=== PATIENT | male | born 1975 | race Caucasian/White ===

== ENCOUNTER 2024-06-12 14:45 | Outpatient (RCR) | payer MEDICAID, SELFPAY ==
[2024-06-05 09:45] VITALS: BP 100/64; PULSE 87; RESP 20; TEMP 36.1; BMI 30.6
--- NOTE | 2024-06-05 13:05 | HP.PCM_ITS ---
History of Present Illness Date of Service: 06/05/24 Chief Complaint: Right Buttock Ulcer History of Wound: Mr. Millan is a 49-year-old who currently resides in a nursing facility. Referred to the wound center due to nonhealing right buttock ulcer. Believes that this has been present for over 2 months. Had been sitting/laying more due to debility from scrotal/penile concerns, he believes that this developed during this time. Has had some dressing changes at his facility but he cannot clearly state what was used. History of diabetes mellitus which has not been well-controlled. Last A1c was around 13-14 however, he states that his readings have been much better lately. Recent hospital s srinivas for sepsis. ? History of significant phimosis with prepuce surgery. This has been managed by urology. He otherwise feels well. He states that his appetite is good. No chills, fever or diarrhea reported. [facility] Medical History (Updated 06/05/24 @ 13:[address] Huyen Mohan MD) Debility Type 2 diabetes mellitus Decubitus ulcer of right buttock, stage 4 Home Medications ?Medication ?Instructions ?Recorded ?Last Taken ?Type apixaban 5 mg tablet (Eliquis) 5 mg PO BID 06/05/24 Unknown History bumetanide 1 mg tablet 1 mg PO BID 06/05/24 Unknown History gabapentin 300 mg capsule 300 mg PO 06/05/24 Unknown History glimepiride 4 mg tablet 8 mg PO 06/05/24 Unknown History insulin NPH isoph U-100 human 100 unit subcut 06/05/24 Unknown History unit/mL (3 mL) subcutaneous pen (Humulin N NPH U-100 Insulin KwikPen) insulin glargine 100 unit/mL (3 unit subcut 06/05/24 Unknown History mL) subcutaneous pen (Lantus Solostar U-100 Insulin) insulin glargine 100 unit/mL 30 unit subcut QHS 06/05/24 Unknown History subcutaneous solution (Lantus U-100 Insulin) insulin lispro 100 unit/mL subcut 06/05/24 Unknown History subcutaneous pen (Humalog KwikPen (U-100) Insulin) lidocaine 4 % topical patch 1 patch topical Q24H 06/05/24 Unknown History (Lidocore) metoprolol succinate 100 mg 100 mg PO BID 06/05/24 Unknown History tablet,extended release 24 hr omeprazole 40 mg capsule,delayed 40 mg PO BID 06/05/24 Unknown History release ondansetron HCl 4 mg/5 mL oral 4 mg PO Q6H PRN nausea and vomiting 06/05/24 Unknown History solution rosuvastatin 10 mg tablet 10 mg PO DAILY 06/05/24 Unknown History Social History Smoking Status: Current some day smoker ROS Constitutional Constitutional: Denies daytime sleepiness, fatigue, fever(s), frequent falls, lethargy or night sweats Eyes Eyes: Denies blindness, blind spots, change in eye color, change in vision, discharge from eye(s), erythema or excessive blinking ENT HEENT: Denies change in voice, dental pain, dysphagia, ear discharge, epistaxis, facial pain, headache(s) or hearing loss Cardiovascular Cardiovascular: Denies bluish discoloration of hand/feet, claudication, clubbing, cyanosis, diaphoresis, dizziness or dyspnea Respiratory/Chest Respiratory/Chest: Denies chest tightness, dusky skin, excessive phlegm product ion, hemoptysis, hoarseness, inability to speak, mouth breathing or nail bed cyanosis Gastrointestinal Gastrointestinal: Denies change in bowel habits, chewing difficulty, coffee ground emesis, constipation, diarrhea, dry heaves or dysphagia Genitourinary Genitourinary: Denies abdominal discomfort, burning urination, flank pain, itching or low back pain Musculoskeletal Musculoskeletal: Denies deformity, extremity pain, loss of height, muscle spasms, muscle weakness, numbness or tremors Integumentary Integumentary: Denies changing lesions, erythema, furuncle, hirsutism or pruritus Neurologic Neurologic: Denies abnormal speech, behavior changes, burning sensations, confusion, convulsions, loss of vision or memory loss Psychiatric Psychiatric: Denies auditory hallucinations, behavioral changes, change in appetite, difficulty concentrating, hallucinations, irritability or memory loss Endocrine Endocrinology: Denies cold intolerance, deepening of the voice, excessive sweating, heat intolerance, increase in ring/shoe/hat size, palpitations or poly uria Hematologic/Lymphatic Hematologic/Lymphatic: Denies easy bleeding or easy bruising Allergic/Immunologic Allergic/Immunologic: Denies itchy eyes, lip swelling, throat swelling, tongue swelling, hives, eczemia or wheezing Vital Signs Vital Signs Vital Signs: 06/05/24 09:45 Temperature 97 F L Temperature Source Temporal Pulse Rate 87 Respiratory Rate 20 H Blood Pressure 100/64 Blood Pressure Mean 76 Weight Weight: 238 lb 11.202 oz Body Mass Index (BMI) 30.6 Physical Exam Const alert, oriented x3 and no apparent distress General Appearance: cooperative and comfortable HEENT normocephalic, head/scalp atraumatic and hearing grossly normal bilaterally Eyes EOMs intact bilaterally General Eye: normal appearance of both eyes Neck full ROM and supple General: normal visual inspection Resp normal respiratory effort and normal air movement Effort and Inspection: able to speak in complete sentences Cardio regular rate, regular rhythm, S1 normal heart sound and S2 normal heart sound GI soft to palpation and non-tender Skin Wounds: wounds noted bed with slough and necrotic, drainage yellow, margins well defined and malodorous Neuro oriented x3, CN's II-XII intact bilaterally, moves all extremities and no focal motor deficits Psych mental status grossly normal, thought process normal, cooperative and affect normal Debridement Note Debridement Note Wound debrided: Right buttock Wound Grade/Stage: Stage IV Type of Debridement: Excisional debridement Anesthesia Used: 4% Lidocaine Solution Depth: in the subcutaneous layer Percentage of wound debrided: 100 Instrument Used: 7mm curette, #15 blade and Forceps Tissue Removed: Slough, necrotic/devitalized tissue Severity: Fat Layer Exposed Amount of bleeding with debridement: Mild Bleeding Controlled with: Pressure Patient tolerated procedure: Patient tolerated procedure well Post-Debridement Measurements and Additional Note: Post-Debridement Measurements/Treatment WC - Nurse 1 - General Ulcer Assessment Start: 06/05/24 09:45 Freq: Status: Active Protocol: EMMANUEL Activity Type Activity Date Activity User E-sign Co-sign Detail Recorded Client Recorded Date Recorded By Document 06/05/24 09:45 DL [id number] 06/05/24 10:12 DL 06/05/24 09:45 - Today's Visit Information Type of service Initial Visit Arrival Mode Wheelchair Transfer Assistance Manual Transfer Assist (Other) x2 Patient Identification Verified (Name & Yes ) Patient Requires Transmission-Based No Precautions Height and Weight Height 6 ft 2 in Weight 238 lb 11.202 oz Weight in Pounds 238.7 lbs Weight Measurement Method Estimated by Patient Body Mass Index (BMI) 30.6 BMI Classification Obese BSA - Pauline 2.34 Vital Signs Temperature (97.8 F-99.1 F) 97 F L Temperature Source Temporal Pulse Rate (60-100) 87 Pulse Location Monitor Respiratory Rate (12-18) 20 H Blood Pressure (90/60-120/80) 100/64 Blood Pressure Mean 76 History Since Last Visit- (Skip if this is Patient's initial visit) Left Footwear Slipper Right Footwear Slipper Pain Scale: 0-10 Numeric Is Patient Pain Free? Yes Communication Assessment Preferred language Malian Able to Read Yes Able to Write Yes Communication Tools None Right Hearing Abillity Normal Left Hearing Abillity Normal Visual Assistive Devices Glasses Teaching Assessment Preferences Verbal,Written, Demonstration Barriers to Learning None Readiness To Learn Good Willingness to Engage in Self Management Med Activies Readiness to Engage in Self Management Med Activities Anxiety Level Calm Cooperation Cooperative Perception Coherent Interest in Health Problem Asks Questions Education Importance Acknowledges Need Does Patient Smoke tobacco or other Yes substances Smoking Status Current some day smoker Is Patient Diabetic Yes Functional Assessment Recent Decline in Ability to Perform Denies Any Declines Culture/Episcopalian/Medical Office Assistant Cultural/Episcopalian Needs that may affect No Treatment Plan Would you allow our hospital mutual fund manager to No meet you for the purpose of spiritual/ emotional support? Medical Office Assistant to contact place of alevism No WC - Nurse 1 - General Ulcer Measurement Start: 06/05/24 09:45 Freq: Status: Active Protocol: Activity Type Activity Date Activity User E-sign Co-sign Detail Recorded Client Recorded Date Recorded By Document 06/05/24 09:45 DL [id number] 06/05/24 10:12 DL 06/05/24 09:45 Wound Center Nurse 1 #2 Penis/Scrotum -Current Size (cm) - Length 8.4 -Current Size (cm) - Width 5.7 -Current Size (cm) - Depth 2.8 -Total Square Cm 47.88 -Photo Taken Yes -Exudate Amt Medium -Exudate Type Serosanguineous -Wound Margin Distinct, Outline Attached -Granulation Amt Large (67-100%) -Granulation Quality Red -Necrosis Amt Small (1-33%) -Necrotic Tissue Type Adherent Slough -Structure Exposed N/A -Texture (Miranda-wound Skin Appearance) Localized Edema ,Scarring -Moisture (Miranda-wound Skin Appearance) No Abnormality -Color (Miranda-wound Skin Appearance) No Abnormality -Ulcer Cleansing Soap and Water -Foul Odor after Cleansing No -Anesthetic Used 4% Lidocaine Solution #1 R Buttocks -Current Size (cm) - Length 5.4 -Current Size (cm) - Width 6 -Current Size (cm) - Depth 2.5 -Total Square Cm 32.4 -Photo Taken Yes -Exudate Amt Medium -Exudate Type Serosanguineous -Wound Margin Distinct, Outline Attached -Granulation Amt None Present (0 %) -Necrosis Amt Large (67-100%) -Necrotic Tissue Type Adherent Slough -Structure Exposed N/A -Texture (Miranda-wound Skin Appearance) Scarring -Moisture (Miranda-wound Skin Appearance) Dry/Scaly -Color (Miranda-wound Skin Appearance) No Abnormality -Tenderness on Palpation (Miranda-wound No Skin Appearance) -Ulcer Cleansing Soap and Water -Foul Odor after Cleansing No -Anesthetic Used 4% Lidocaine Solution - Nurse 2 - General Ulcer CM Notes Start: 06/05/24 09:45 Freq: Status: Active Protocol: Activity Type Activity Date Activity User E-sign Co-sign Detail Recorded Client Recorded Date Recorded By Document 06/05/24 10:44 [facility] 06/05/24 11:07 06/05/24 10:44 Wound Center Nurse 2 #2 Penis/Scrotum -Time 10:44 -Correct Patient Yes -Correct Side, Site, Position Yes #1 R Buttocks -Time 10:44 -Correct Patient Yes -Correct Side, Site, Position Yes -Correct Procedure Yes -Procedure Performed Yes -Type of Procedure Debridement -Clinical Debridement Subcutaneous -Tissue Removed Subcutaneous -Post Debridement (cm) - Length 5.5 -Post Debridement (cm) - Width 5.5 -Post Debridement (cm) - Depth 8.0 -Total Square (Post) (cm) 30.25 -Tunneling No -Undermining/Tunneling No -Circular Undermining No -Wound/Ulcer Outcome Not Healed -Ulcer Cleansing Rinsed/ Irrigated with Saline -Foul Odor after Cleansing No -Bioengineered Tissue No -Bleeding Controlled with Pressure -Treatment Response Procedure Tolerated Well -Debridement - Subq, 1st 20sq cm Yes -Debridement, SubQ, ea addt'l 20sq cm 1 or part thereof Pain Scale: 0-10 Numeric Is Patient Pain Free? Yes - Nurse 3 - General Ulcer D/C NN Start: 06/05/24 09:45 Freq: Status: Active Protocol: Activity Type Activity Date Activity User E-sign Co-sign Detail Recorded Client Recorded Date Recorded By Document 06/05/24 11:23 KW f 06/05/24 11:25 KW 06/05/24 11:23 Wound Care Center Nurse 3 #2 Penis/Scrotum -Other Dressing wet to dry -Primary Dressing Covered/Secured with Dry Gauze, Secured with Tape #1 R Buttocks -Primary Dressing Applied Mepilex Border -Other Dressing hydrogel until Santyl is recieved topped with moistened gauze -Primary Dressing Covered/Secured with Dry Gauze -Mepilex Border 1 Pain Scale: 0-10 Numeric Is Patient Pain Free? Yes WC - Visit Discharge Discharge Condition Stable Ambulatory Status Wheelchair Medication Reconcilliation completed & No provided to patient/care provider Clinical Summary of Care Provided Yes Charges/Coding Visit Charges Office Visits / Consults: 28719 OV L4 New 45min Procedures Integumentary [id number]: [id number] Janny subq tissue 20 sq cm/< Assessment/Plan Assessment/Plan (1) Decubitus ulcer of right buttock, stage 4: CODE(S): L89.314 - Pressure ulcer of right buttock, stage 4 (2) Type 2 diabetes mellitus: CODE(S): E11.9 - Type 2 diabetes mellitus without complications (3) Debility: CODE(S): R53.81 - Other malaise PLAN: Plan Debridement done as documented above, procedure was well-tolerated. Significant/extensive slough and necrotic tissue. Probes to about 8 cm at the deepest using a metal probe. I believe he will benefit from surgical management/unroofing in the OR. He will like this done at [facility]. Due to significant slough even after extensive debridement, will start out with Santyl. Apply daily cover with moist gauze and ABD. He states that he has an offloading mattress at his facility. Reposition often. An x-ray was ordered due to concern for depth and risk for osteomyelitis. Also history of diabetes mellitus which per history has not been well-controlled. We have requested recent labs and have added on a CRP, ESR, A1c and prealbumin levels. He states that his appetite is good, optimal dietary and protein intake. Reposition often. He was advised to call with any questions or concerns. Follow-up in a week for courtesy visit and in 2 weeks with me.
--- NOTE | 2024-06-06 11:34 | WC ---
PHOTO 06/05/24 RIGHT BUTTOCKS (I)
--- NOTE | 2024-06-06 11:35 | WC ---
PHOTO 06/05/24
[2024-06-12 14:54] VITALS: BP 71/48; PULSE 84; RESP 16; TEMP 35.3; BMI 30.6
== END 2024-06-18 23:59 | disposition home or self-care (01) ==
LOC: WC 14:45
PROVIDERS: Visit Provider Internal Medicine
DX: L89.314 Pressure ulcer of right buttock, stage 4 (principal); Z79.4 Long term (current) use of insulin; E11.9 Type 2 diabetes mellitus without complications; R53.81 Other malaise; F17.200 Nicotine dependence, unspecified, uncomplicated; Z79.01 Long term (current) use of anticoagulants; Z79.84 Long term (current) use of oral hypoglycemic drugs; Z79.899 Other long term (current) drug therapy
CPT/HCPCS: 11042; 11045; 99203; G0463

== ENCOUNTER 2024-06-18 09:01 | Emergency (ER) | payer MEDICAID, SELFPAY ==
[2024-06-18] VITALS (20 sets, daily range): BP systolic 79–151; BP diastolic 55–87; PULSE 83–94; RESP 13–21; TEMP 36.6–36.9; O2SAT 98–100; BMI 31.5
--- NOTE | 2024-06-18 09:18 | CT_ITS ---
STUDY: CT ABDOMEN AND PELVIS WITH CONTRAST REASON FOR EXAM: Male, 49 years old. History of Jean''s gangrene 1 month ago -- Patient has right buttock wound purulent drainage RADIATION DOSAGE (If Supplied By Facility): CTDIvol = ( 17.41 ) mGy, DLP = ( 1733.37 ) mGycm TECHNIQUE: Transaxial images were obtained from the dome of the diaphragm to the symphysis pubis without oral contrast. IV 100mL Isovue-300 was administered. Sagittal and coronal images were reconstructed. Individualized dose optimization techniques were used for this CT. COMPARISON: None. FINDINGS: Minimal increased linear markings at the lung bases suggestive of bibasilar atelectasis. Coronary artery calcification. Normal liver. Tiny gallstones in the dependent portion of the gallbladder lumen. Normal spleen. Normal pancreas. Normal bilateral adrenal glands. There is nonspecific bilateral perinephric stranding. Normal visualized stomach. Normal small intestine. Normal colon. The appendix is visualized and appears normal. There is scattered atherosclerotic calcification of the abdominal aorta, without a demonstrated aneurysm. Normal inferior vena cava. Normal retroperitoneum. A Young catheter is seen within a decompressed urinary bladder. There is a 11 cm x 2.8 cm x 1.7 cm heterogeneous fluid collection with air overlying the right gluteus musculature. There is opening to the overlying skin along the medial aspect of the perineum. Increased markings with air also seen in the inferior aspect of the perineum. There is also evidence of a 2.8 cm x 1.5 cm x 2.9 cm heterogeneous fluid collection in the left side of the perineum just, inferior to the scrotum. No bony destruction is seen. CT/Abdomen/Pelvis W IV Cont ONLY IMPRESSION: 11 cm x 2.8 cm x 1.7 cm heterogeneous fluid collection with air overlying the right gluteus musculature extending into the medial aspect of the perineum. This extends into the inferior aspect of the perineum. There is also evidence of a 2.8 cm x 1.5 cm x 2.9 cm heterogeneous fluid collection in the left side of the perineum just below the scrotum. Tiny gallstones along the dependent portion gallbladder lumen. Nonspecific bilateral perinephric stranding. Mild bibasilar atelectasis. Electronically Signed: Rancho Mcconnell MD at 10:59 EDT ,
--- NOTE | 2024-06-18 09:21 | EKG12_ITS ---
Test Reason : WOUND Blood Pressure : / mmHG Vent. Rate : 092 BPM Atrial Rate : 092 BPM P-R Int : 160 ms QRS Dur : 168 ms QT Int : 410 ms P-R-T Axes : 042 041 012 degrees QTc Int : 507 ms Normal sinus rhythm Non-specific intra-ventricular conduction block Abnormal ECG Confirmed by SLIM SOLIS, BARBARA ([id number]), news copy editor HOMAR GRIJALVA ([id number]) on 06/20/2024 10:22:34 AM Referred By: Confirmed By:CRISTIN SMALLS MD
[2024-06-18] MEDS: 0.9% Normal Saline (1000mL) 1,000 ML 999 ML IV ×3 (09:25→11:38)
--- NOTE | 2024-06-18 09:25 | EDS_ITS ---
HPI History of Present Illness Chief Complaint: Wound Check Narrative Narrative: Patient is a 49-year-old male with a past medical history of type 2 diabetes, right stage IV decubitus ulcer, Jean's gangrene debrided about a month ago at [facility] who presented to the emergency department with a chief complaint of wound check. According to the patient he was sent here by the physician at the nursing facility [facility] for further evaluation management. Patient notes that he believes he is on 3 antibiotics currently but cannot recall the exact name of these. According to EMS they also noted that his hemoglobin checked recently was noted to be low around 6 as well. Patient himself denies any complaints states that he does not feel ill overall. [facility] Medical History Anemia, unspecified Acute kidney failure, unspecified Obstructive and reflux uropathy, unspecified Polyneuropathy, unspecified Jean gangrene Debility Type 2 diabetes mellitus Decubitus ulcer of right buttock, stage 4 Home Medications ?Medication ?Instructions ?Recorded ?Last Taken ?Type apixaban 5 mg tablet (Eliquis) 5 mg PO BID 06/05/24 Unknown History bumetanide 1 mg tablet 1 mg PO BID 06/05/24 Unknown History gabapentin 300 mg capsule 300 mg PO DAILY 06/05/24 Unknown History glimepiride 4 mg tablet 8 mg PO DAILY 06/05/24 Unknown History insulin glargine 100 unit/mL (3 30 unit subcut QHS 06/05/24 Unknown History mL) subcutaneous pen (Lantus Solostar U-100 Insulin) insulin lispro 100 unit/mL 1 sliding scale dose subcut TID DM 06/05/24 Unknown History subcutaneous pen (Humalog KwikPen (U-100) Insulin) lidocaine 4 % topical patch 1 patch topical Q24H 06/05/24 Unknown History (Lidocore) metoprolol succinate 100 mg 100 mg PO BID 06/05/24 Unknown History tablet,extended release 24 hr omeprazole 40 mg capsule,delayed 40 mg PO BID 06/05/24 Unknown History release rosuvastatin 10 mg tablet 10 mg PO DAILY 06/05/24 Unknown History acetaminophen 325 mg tablet 650 mg PO Q8H PRN pain 06/18/24 Unknown History cholecalciferol (vitamin D3) 1,250 1,250 mcg PO QWEEK 06/18/24 Unknown History mcg (50,000 unit) capsule ferrous sulfate 325 mg (65 mg 325 mg PO DAILY 06/18/24 Unknown History iron) tablet (FeroSul) meclizine 25 mg tablet (Dramamine 25 mg PO Q8H PRN dizziness 06/18/24 Unknown History Less Drowsy) ondansetron HCl 4 mg tablet 4 mg PO Q6H PRN nausea and vomiting 06/18/24 Unknown History oxycodone 5 mg tablet 5 mg PO Q6H PRN pain 06/18/24 Unknown History scopolamine base 1 mg over 3 days 1 patch topical Q3D 06/18/24 Unknown History transdermal patch simethicone 180 mg capsule 180 mg PO BID 06/18/24 Unknown History (Anti-Gas Ultra Strength) sodium hypochlorite 0.25 % 1 applic topical BID 06/18/24 Unknown History solution (Dakin's Solution) Allergy/AdvReac Type Severity Reaction Status Date / Time ampicillin Allergy Unknown PT UNABLE Verified 06/18/24 09:09 TO RESPOND-NEEDS F/U Penicillins Allergy Unknown PT UNABLE Verified 06/18/24 09:09 TO RESPOND-NEEDS F/U Social History Smoking Status: Current some day smoker tobacco type: cigarettes ROS ROS ED ROS Narrative Constitutional: Denies fevers, chills, headaches, lightheadedness, dizziness Eyes: Denies change in vision double vision blurry vision Cardiovascular: Denies chest pain or palpitations Respiratory: Denies coughing wheezing shortness of breath Abdomen: Denies abdominal pain nausea vomiting diarrhea : Denies any urinary symptoms states that he had surgery about a month ago for Jean's gangrene as noted in HPI Neurological: Denies numbness or tingling Musculoskeletal: Patient complains of buttock wound and needs evaluated Skin: Complains of buttock wound EXAM Physical Exam Narrative Exam Narrative: General: Patient lying in bed rest comfortably did not appear to be in acute distress Head: Atraumatic, normocephalic Eyes: PERRL bilaterally, EOMI bilaterally, no conjunctival injection noted Neck: Soft, supple, trachea midline Cardiovascular: Regular rate and rhythm no murmurs gallops rubs noted Respiratory: Clear to auscultation bilaterally Abdomen: Soft, nondistended, no tenderness palpation Musculoskeletal: Patient has a right buttock wound that has significant amount of purulent drainage coming from this as well as infected tissue does appear to tunnel as well Genitourinary: Patient has Young catheter in place surgical sites appear to be healing well no surrounding erythema or purulent drainage noted Extremities: DP pulses +2/4 in the bilateral lower extremities, no pedal edema on exam Neurological: Patient following commands in his [facility] year is 2023 Skin: See musculoskeletal Const Vital Signs: 06/18/24 09:03 06/18/24 09:06 06/18/24 09:23 Temperature 98.2 F 98.2 F Temperature Source Oral Oral Pulse Rate 94 94 Respiratory Rate 15 15 Respiratory Effort Normal Non-Labored Respiratory Pattern Normal Blood Pressure 79/55 L 79/55 L Blood Pressure Mean 63 63 Blood Pressure Source Blood Pressure Position Blood Pressure Location Pulse Ox 100 100 Oxygen Delivery Method Room Air Room Air 06/18/24 09:26 06/18/24 10:03 06/18/24 11:00 Temperature Temperature Source Pulse Rate 94 92 Respiratory Rate 21 H 19 H Respiratory Effort Respiratory Pattern Blood Pressure 89/63 L 113/73 Blood Pressure Mean 71 86 Blood Pressure Source Blood Pressure Position Blood Pressure Location Pulse Ox 100 100 Oxygen Delivery Method Room Air Room Air Room Air 06/18/24 11:44 06/18/24 12:15 Temperature 97.8 F Temperature Source Oral Pulse Rate 90 90 Respiratory Rate 16 14 Respiratory Effort Respiratory Pattern Blood Pressure 101/63 114/73 Blood Pressure Mean 75 86 Blood Pressure Source Monitor Blood Pressure Position Semi-Fowlers Blood Pressure Location Left Arm Pulse Ox 98 100 Oxygen Delivery Method Room Air Room Air MDM MDM MDM Narrative Medical decision making narrative: Patient is a 49-year-old male who presents to the emergency department with chief complaint of wound check. Patient will have a workup performed here on the differential diagnose includes but not limited to infected right buttock wound, pneumonia, UTI. Patient be given 30 cc/kg bolus of IV fluids based on ideal body weight as BMI is greater than 30. Once workup is obtained reviewed he will be reevaluated. Wound cultures were obtained. Patient's cultures were negative. Patient CBC was significant for leukocytosis of 12,000, hemoglobin was noted to be low at 6.1 he will be typed and screened for 2 units of blood, platelet count was 488. Patient's INR normal 1.6, PT elevated 18.8. Patient's sodium was notably 134, potassium normal at 4.4, creatinine was elevated 3.40 does have underlying chronic kidney disease per records at [facility] and follows with nephrology 9, AST and ALT were 153 and 66 respectively. Patient's urinalysis did not reveal any evidence of infection. Patient's lactic acid was notably 2. It was negative for nitrates, 500 leukocyte esterase seen with greater than 100 white blood cells seen however no bacteria seen he does have chronic Young catheter in place. Patient's chest x-ray was reviewed and showed elevation of right hemidiaphragm with increased markings at the right lung base suggestive of right basilar atelectasis. Patient's CT abdomen pelvis with IV contrast showed a 11 x 3 x 2 heterogeneous fluid collection with air overlying the right gluteus musculature. There is opening to the overlying skin along the medial aspect of the perineum. Increased markings with air also seen in the inferior aspect of the perineum. Also there is evidence of a 3 x 2 x 3 heterogeneous fluid collection in the left side of the perineum just inferior to the scrotum. No bony destruction was noted. Patient was given IV vancomycin, Zosyn and clindamycin here in the emergency department. At this point in time do believe the patient warrants transfer back to [facility]. I did discuss the case with industrial sales engineer Dr. Warner who states that given the patient's vital signs have normalized after IV fluids and will be getting blood transfusion he once again has underlying chronic kidney disease per the records he does believe that the patient can be admitted to the surgical intensive care unit under the hospitalist. I did discuss the case with hospitalist Dr. Ritter who will accept patient for admission. He is requesting normal saline running at 100 cc an hour which was ordered. Patient was notified that he will be transferred to [facility] in [facility] he is agreeable with this plan all question concerns were answered bedside. Lab Data Labs: Laboratory Results - last 24 hr 06/18/24 06/18/24 06/18/24 09:20 09:40 10:50 WBC 12.2 H RBC 2.47 L Hgb 6.1 L Hct 20.2 L MCV 81.8 MCH 24.7 L MCHC 30.2 L RDW Std Deviation 51.2 H RDW Coeff of Adolfo 17.2 H Plt Count 488 H MPV 9.6 Immature Gran % (Auto) 1.200 H Neut % (Auto) 63.0 Lymph % (Auto) 23.1 [place] % (Auto) 9.4 Eos % (Auto) 2.9 Baso % (Auto) 0.4 Absolute Neuts (auto) 7.7 Absolute Lymphs (auto) 2.82 Nucleated RBC % 0 PT 18.8 H INR 1.6 APTT 35.6 Sodium 134 L Potassium 4.4 Chloride 100 Carbon Dioxide 27.0 Anion Gap 7 BUN 62 H Creatinine 3.40 H Estim Creat Clear Calc 35.68 Est GFR (MDRD) Af Amer 25 L Est GFR (MDRD) Non-Af 21 L BUN/Creatinine Ratio 18.2 Glucose 85 Lactic Acid 2.0 Calcium 8.7 Total Bilirubin 0.50 AST 153 H ALT 66 H Alkaline Phosphatase 1954 H Troponin I High Sens 12 Total Protein 8.1 Albumin 1.4 L Globulin 6.7 H Albumin/Globulin Ratio 0.2 L Urine Color Yellow Urine Clarity Cloudy Urine pH 6.0 Ur Specific Lennon 1.010 Urine Protein 100 H Urine Glucose (UA) Normal Urine Ketones Negative Urine Occult Blood 150 H Urine Nitrite Negative Urine Bilirubin Negative Urine Urobilinogen Normal Ur Leukocyte Esterase 500 H Urine RBC 0 SEEN Urine WBC >100 SEEN Ur Squamous Epith Cells 0 SEEN Urine Bacteria 0 SEEN Urine Mucus 0 SEEN Urine Yeast 2+ Blood Type O POSITIVE Antibody Screen NEGATIVE Crossmatch See Detail Radiography Diagnostic Testing: Clinical Impression(s) from Imaging Studies Abdomen/Pelvis CT 06/18/24 09:18 IMPRESSION: 11 cm x 2.8 cm x 1.7 cm heterogeneous fluid collection with air overlying the right gluteus musculature extending into the medial aspect of the perineum. This extends into the inferior aspect of the perineum. There is also evidence of a 2.8 cm x 1.5 cm x 2.9 cm heterogeneous fluid collection in the left side of the perineum just below the scrotum. Tiny gallstones along the dependent portion gallbladder lumen. Nonspecific bilateral perinephric stranding. Mild bibasilar atelectasis. Electronically Signed: Rancho Mcconnell MD at 10:59 EDT , Chest X-Ray 06/18/24 10:38 IMPRESSION: Elevation of the right hemidiaphragm with increased markings at the right lung base suggestive of a right basilar atelectasis. Electronically Signed: Rancho Mcconnell MD at 11:06 EDT , Discharge Plan Triage Chief Complaint: Wound Check Other Complaint: Abn Labs ED Provider: Harry Akers Dx/Rx/DC Orders Clinical Impression: Abscess of sacrum, Type 2 diabetes mellitus, History of Jean's gangrene, Open wound of buttock Prescriptions: No Action Dakin's Solution 0.25 % solution 1 applic topical BID Rx Instructions: APPLY TO SCROTUM ferrous sulfate [FeroSul] 325 mg (65 mg iron) tablet 325 mg PO DAILY meclizine [Dramamine Less Drowsy] 25 mg tablet 25 mg PO Q8H PRN (Reason: dizziness) oxycodone 5 mg tablet 5 mg PO Q6H PRN (Reason: pain) scopolamine base 1 mg over 3 days patch 3 day 1 patch topical Q3D simethicone [Anti-Gas Ultra Strength] 180 mg capsule 180 mg PO BID Rx Instructions: GIVE 1 CAPSULE TWICE DAILY FOR 10 DAYS STARTING 06/17/24 FOR HYPERTENSION. acetaminophen 325 mg tablet 650 mg PO Q8H PRN (Reason: pain) cholecalciferol (vitamin D3) 1,250 mcg (50,000 unit) capsule 1,250 mcg PO QWEEK Rx Instructions: UNKNOWN WHAT DAY OF WEEK ondansetron HCl 4 mg tablet 4 mg PO Q6H PRN (Reason: nausea and vomiting) metoprolol succinate 100 mg tablet extended release 24 hr 100 mg PO BID omeprazole 40 mg capsule,delayed release(DR/EC) 40 mg PO BID glimepiride 4 mg tablet 8 mg PO DAILY gabapentin 300 mg capsule 300 mg PO DAILY bumetanide 1 mg tablet 1 mg PO BID insulin lispro [Humalog KwikPen Insulin] 100 unit/mL insulin pen 1 sliding scale dose subcut TID Protocol: 6. Sliding Scale Insulin Custom Condition: mg/dl range Dose/Route: Number of Units Condition: 151-200 Dose/Route: 2 Condition: 201-250 Dose/Route: 4 Condition: 251-300 Dose/Route: 6 Condition: 301-350 Dose/Route: 8 Condition: 351-400 Dose/Route: 10 Condition: 401+ Dose/Route: CONTACT MD Protocol Text: Custom Sliding Scale rosuvastatin 10 mg tablet 10 mg PO DAILY insulin glargine [Lantus Solostar U-100 Insulin] 100 unit/mL (3 mL) insulin pen 30 unit subcut QHS Eliquis 5 mg tablet 5 mg PO BID lidocaine [Lidocore] 4 % adhesive patch,medicated 1 patch topical Q24H Rx Instructions: may leave on for up to 12 hrs Primary Care Provider: Russ Galan Referrals: Russ Galan DO [Primary Care Provider] - Print Language: Haitian Disposition Disposition: DC/Tx to Another Type of HCF
--- NOTE | 2024-06-18 09:26 | NURSING ---
NO OLD EKGS
[2024-06-18 09:48] LABS: Absolute Lymphocyte Count 2.82 X10^3/uL (0.83-4.51); Absolute Neutrophil Count 7.7 X10^3/uL (2.0-7.7); Basophil# 0.05 X10^3/uL; Basophil% 0.4 % (0-1); Eosinophil# 0.35 X10^3/uL; Eosinophils% 2.9 % (0-5); Hematocrit 20.2 % (40-54); Hemoglobin 6.1 g/dL (13.0-16.5); Lymphocyte # 2.82 X10^3/ul (0.83-4.51); Lymphocyte % 23.1 % (19-41); Mean Corp Hgb Conc 30.2 g/dL (32-36); Mean Corpuscular Hgb 24.7 pg (27.0-32.0); Mean Corpuscular Volume 81.8 fL (80-94); Mean Platelet Vol. 9.6 fl (6.2-12.0); Monocyte# 1.15 X10^3/uL; Monocyte% 9.4 % (0-10); NRBC Flagged by Analyzer 0 % (0-5); Platelet Count 488 K/mm3 (150-450); RBC Distribution Width CV 17.2 % (11.6-14.6); RBC Distribution Width SD 51.2 fl (35.1-43.9); Red Blood Count 2.47 M/mm3 (4.6-6.2); White Blood Count 12.2 K/mm3 (4.4-11.0)
[2024-06-18 09:57] LABS: Partial Thromboplast Time 35.6 Seconds (24.1-36.2)
[2024-06-18 10:09] LABS: ALB/GLOB Ratio 0.2 RATIO (0.9-2.4); AST(SGOT) 153 U/L (15-37); Alanine Aminotransfer ALT/SGPT 66 U/L (16-61); Albumin, Serum 1.4 g/dL (3.2-5.0); Alkaline Phosphatase 1954 U/L (45-117); Anion Gap 7 (5-15); BUN 62 mg/dL (7-18); BUN/Creat Ratio 18.2 RATIO (10-20); Calcium,Total 8.7 mg/dL (8.5-10.1); Chloride 100 mmol/L (98-107); EST Glomerular Filtration Rate 21 mL/min (>60); Est Glom Filt Rate - Afr Amer 25 mL/min (>60); Estimated Creatinine Clearance 35.68 ml/min; Globulin 6.7 g/dL (2.2-4.2); Glucose 85 mg/dL (74-106); Potassium 4.4 mmol/L (3.5-5.1); Protein, Total 8.1 g/dL (6.4-8.2); Sodium Level 134 mmol/L (136-145); Troponin-I HS 12 pg/mL (3.0-78.0)
[2024-06-18 10:35] LABS: International Normalized Ratio 1.6; Prothrombin Time (Protime)PT. 18.8 SECONDS (11.7-14.9)
--- NOTE | 2024-06-18 10:38 | RAD_ITS ---
STUDY: X-RAY CHEST REASON FOR EXAM: Male, 49 years old. SIRS criteria TECHNIQUE: AP and lateral views of the chest. COMPARISON: None. FINDINGS: EKG electrodes are seen. Mild degree of increased markings at the right lung base with elevation of the right hemidiaphragm suggestive of right basilar atelectasis. There is no demonstrated pleural abnormality. Normal size heart. Normal mediastinum and raghavendra. Normal visualized pulmonary arteries. Normal visualized aortic arch and descending thoracic aorta. Normal visualized thoracic spine. Normal visualized ribs, clavicles, and shoulders. There is no demonstrated abnormality of the visualized soft tissue structures of the upper abdomen. RAD/Chest PA and Lateral IMPRESSION: Elevation of the right hemidiaphragm with increased markings at the right lung base suggestive of a right basilar atelectasis. Electronically Signed: Rancho Mcconnell MD at 11:06 EDT ,
[2024-06-18 10:55] LABS: Bacteria 0 SEEN /hpf (None Seen); Mucous, Urine 0 SEEN /hpf (<or=2+); Red Blood Cells-Urine 0 SEEN /hpf (0-5); Squamous Epithelial Cells - UA 0 SEEN /hpf (0-5)
[2024-06-18 10:57] LABS: Color, Urine Yellow (Yellow); Glucose, Dipstick Normal (Normal); Ketone-Dipstick Negative (Negative); Leukocyte Esterase-Dipstick 500 /ul (Negative); Nitrite-Dipstick Negative (Negative); Occult Blood-Urine 150 /ul (Negative); Protein-Dipstick 100 mg/dl (Negative); Urine Bilirubin Dipstick Negative (Negative); Urine Clarity Cloudy (Clear); Urine Urobilinogen Normal (Normal)
[2024-06-18] MEDS: Piperacil/Tazobactam 4.5 GM in 0.9% Normal Saline (100mL MB+) 100 ML IV (10:59)
[2024-06-18 11:02] LABS: White Blood Cells >100 SEEN /hpf (0-5)
[2024-06-18 11:03] LABS: Yeast-Urine 2+ /hpf (None Seen)
--- NOTE | 2024-06-18 11:29 | NURSING ---
CALLED [facility] FOR TRANSFER. TALKED TO MANDY
[2024-06-18] MEDS: Clindamycin 900 MG/50 ML BAG 75 MG IV (11:39)
[2024-06-18] MEDS: Vancomycin HCl 2,000 MG in 0.9% Normal Saline (500mL Bag) 500 ML 250 MG IV (12:18)
[2024-06-18] MEDS: 0.9% Normal Saline (1000mL) 1,000 ML 100 ML IV (12:22)
[2024-06-18 13:49] LABS: Reflex Lactate? Y
== END 2024-06-18 14:30 | disposition other institution (70) ==
PROVIDERS: Emergency Provider Emergency Medicine; Visit Provider Emergency Medicine
DX: L02.212 Cutaneous abscess of back [any part, except buttock and flank] (principal); L89.154 Pressure ulcer of sacral region, stage 4; E11.42 Type 2 diabetes mellitus with diabetic polyneuropathy; Z79.4 Long term (current) use of insulin; F17.210 Nicotine dependence, cigarettes, uncomplicated; Z79.899 Other long term (current) drug therapy; Z79.84 Long term (current) use of oral hypoglycemic drugs
CPT/HCPCS: 71046; 74177; 80053; 81001; 83605; 84484; 85025; 85610; 85730; 86850; 86900; 86901; 86920; 86922; 87040; 87070; 87075; 87077; 87086; 87088; 87186; 87205; 93005; 96361; 96365; 96368; 96375; 99285; J7030; J7040; J7050; P9016; Q9967; A4216

== ENCOUNTER 2024-07-14 14:28 | Outpatient (RCR) | payer MEDICAID, SELFPAY ==
[2024-06-19 00:53] VITALS: BP 71/48; PULSE 84; RESP 16; TEMP 35.3; BMI 30.6
[2024-07-14 14:32] VITALS: BP 101/64; PULSE 90; RESP 16; TEMP 36; BMI 30.6
--- NOTE | 2024-07-14 17:52 | PCM.WC.HP ---
History of Present Illness Date of Service: 07/14/24 Chief Complaint: Right Buttock Ulcer History of Wound: Sreekanth Millan is a 49-year-old type II diabetic (often high A1c, sometimes between 13 and 14), as well as atrial fibrillation on 5 mg of Eliquis twice daily, who presents today as a transport from a skilled nursing where he is being cared for because of a nonhealing right buttock ulcer. 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 His scrotal wound/penile wound have improved greatly and with wet to dry dressings, but he reports that his pressure sore from being immobilized from critical illness is persistent. They have been doing a wound VAC on this pressure sore and he thinks that stool is getting in and around the wound VAC unfortunately. He still has a catheter in and is not sure when the urologist is planning to take it out. He continues to smoke cigarettes (reportedly smokes 5 cigarettes/day at the skilled nursing). He reports that he does not walk much and only works with physical therapy a little bit, standing up with them to get in a walker to ambulate. [facility] Medical History Anemia, unspecified Acute kidney failure, unspecified Obstructive and reflux uropathy, unspecified Polyneuropathy, unspecified Jean gangrene Debility Type 2 diabetes mellitus Decubitus ulcer of right buttock, stage 4 Home Medications ?Medication ?Instructions ?Recorded ?Last Taken ?Type apixaban 5 mg tablet (Eliquis) 5 mg PO BID 06/05/24 Unknown History bumetanide 1 mg tablet 1 mg PO BID 06/05/24 Unknown History gabapentin 300 mg capsule 300 mg PO DAILY 06/05/24 Unknown History glimepiride 4 mg tablet 8 mg PO DAILY 06/05/24 Unknown History insulin glargine 100 unit/mL (3 30 unit subcut QHS 06/05/24 Unknown History mL) subcutaneous pen (Lantus Solostar U-100 Insulin) insulin lispro 100 unit/mL 1 sliding scale dose subcut TID DM 06/05/24 Unknown History subcutaneous pen (Humalog KwikPen (U-100) Insulin) lidocaine 4 % topical patch 1 patch topical Q24H 06/05/24 Unknown History (Lidocore) metoprolol succinate 100 mg 100 mg PO BID 06/05/24 Unknown History tablet,extended release 24 hr omeprazole 40 mg capsule,delayed 40 mg PO BID 06/05/24 Unknown History release rosuvastatin 10 mg tablet 10 mg PO DAILY 06/05/24 Unknown History acetaminophen 325 mg tablet 650 mg PO Q8H PRN pain 06/18/24 Unknown History cholecalciferol (vitamin D3) 1,250 1,250 mcg PO QWEEK 06/18/24 Unknown History mcg (50,000 unit) capsule ferrous sulfate 325 mg (65 mg 325 mg PO DAILY 06/18/24 Unknown History iron) tablet (FeroSul) meclizine 25 mg tablet (Dramamine 25 mg PO Q8H PRN dizziness 06/18/24 Unknown History Less Drowsy) ondansetron HCl 4 mg tablet 4 mg PO Q6H PRN nausea and vomiting 06/18/24 Unknown History oxycodone 5 mg tablet 5 mg PO Q6H PRN pain 06/18/24 Unknown History scopolamine base 1 mg over 3 days 1 patch topical Q3D 06/18/24 Unknown History transdermal patch simethicone 180 mg capsule 180 mg PO BID 06/18/24 Unknown History (Anti-Gas Ultra Strength) sodium hypochlorite 0.25 % 1 applic topical BID 06/18/24 Unknown History solution (Dakin's Solution) Allergy/AdvReac Type Severity Reaction Status Date / Time ampicillin Allergy Unknown PT UNABLE Verified 06/18/24 09:09 TO RESPOND-NEEDS F/U Penicillins Allergy Unknown PT UNABLE Verified 06/18/24 09:09 TO RESPOND-NEEDS F/U Social History Smoking Status: Current some day smoker tobacco type: cigarettes Vital Signs Vital Signs Vital Signs: 07/14/24 14:32 Temperature 96.8 F L Temperature Source Temporal Pulse Rate 90 Respiratory Rate 16 Blood Pressure 101/64 Blood Pressure Mean 76 Blood Pressure Source Monitor Blood Pressure Position Sitting Blood Pressure Location Right Arm Oxygen Delivery Method Room Air Weight Weight: 238 lb 11.202 oz Body Mass Index (BMI) 30.6 Physical Exam Narrative Right ischial wound with exposed muscle at the base, 3 x 2 cm. There is some fibrinous exudate and necrotic tissue at the base of the wound. This was excised (please see separate debridement portion of note) The wound tunnel superiorly extensively, and it is unlikely that the wound VAC was getting into this location. No fluid collections or signs of surrounding cellulitis Extremity Extremity Narrative: Patient is able to move his extremities He is able to bend and extend his feet and his legs at the knee joints. He is just chronically deconditioned from not walking Debridement Note Debridement Note Laterality: Right Type of Debridement: Excisional debridement Anesthesia Used: 4% Lidocaine Solution Depth: to muscle Percentage of wound debrided: 100 Instrument Used: 5mm curette and 7mm curette Severity: Necrosis of Muscle Bleeding Controlled with: Pressure Patient tolerated procedure: Patient tolerated procedure well Post-Debridement Measurements and Additional Note: Post-Debridement Measurements/Treatment - Nurse 1 - General Ulcer Assessment Start: 07/14/24 14:31 Freq: Status: Active Protocol: EMMANUEL Activity Type Activity Date Activity User E-sign Co-sign Detail Recorded Client Recorded Date Recorded By Document 07/14/24 14:32 [facility] [id number] 07/14/24 14:36 [facility] 07/14/24 14:32 - Today's Visit Information Type of service Follow-up Visit (Physician/COMMUNITY LIAISON OFFICER ) Arrival Mode Wheelchair Transfer Assistance Trip Lift Patient Identification Verified (Name & Yes ) Patient Requires Transmission-Based No Precautions Height and Weight Body Mass Index (BMI) 30.6 BMI Classification Obese Vital Signs Temperature (97.8 F-99.1 F) 96.8 F L Temperature Source Temporal Pulse Rate (60-100) 90 Pulse Location Monitor Respiratory Rate (12-18) 16 Respiratory rate source Observation Oxygen Delivery Method Room Air Blood Pressure (90/60-120/80) 101/64 Blood Pressure Mean 76 Source Monitor Position Sitting Blood Pressure Location Right Arm History Since Last Visit- (Skip if this is Patient's initial visit) Have you changed medications since your No last visit? Any new allergies or adverse reactions No Had a fall/change in ADL's that may No increase risk of falls Signs or symptoms of abuse and/or No neglect since last visit Have you been in the hospital since your Yes last visit? Has dressing in place as prescribed Yes Has compression in place as prescribed N/A Has offloadiing in place as prescribed Yes Experienced any changes in pain level or No management Other Footwear BAREFOOT Pain Scale: 0-10 Numeric Is Patient Pain Free? Yes WC - Nurse 1 - General Ulcer Measurement Start: 07/14/24 14:31 Freq: Status: Active Protocol: Activity Type Activity Date Activity User E-sign Co-sign Detail Recorded Client Recorded Date Recorded By Document 07/14/24 14:32 [facility] [id number] 07/14/24 14:36 [facility] 07/14/24 14:32 Wound Center Nurse 1 #2 Penis/Scrotum -Combined with other wound No -Current Size (cm) - Length 4.6 -Current Size (cm) - Width 0.1 -Current Size (cm) - Depth 0.1 -Total Square Cm 0.46 -Date of Last Picture (Recall this 07/14/24 field) -Photo Taken Yes -Epithelialization Small 1-33% -Tunneling No -Undermining/Tunneling No -Circular Undermining No -Exudate Amt Small -Exudate Type Serosanguineous -Wound Margin Distinct, Outline Attached -Granulation Amt Medium (34-66%) -Granulation Quality Pale,Red -Slough/Fibrin Yes -Necrosis Amt Medium (34-66%) -Necrotic Tissue Type Adherent Slough -Texture (Miranda-wound Skin Appearance) Assessed, Scarring -Moisture (Miranda-wound Skin Appearance) Assessed -Color (Miranda-wound Skin Appearance) Assessed -Temperature (Miranda-wound Skin No Abnormality Appearance) (Pt Warm) -Tenderness on Palpation (Miranda-wound No Skin Appearance) -Ulcer Cleansing Soap and Water -Foul Odor after Cleansing No -Anesthetic Used 4% Lidocaine Solution #1 R Buttocks -Combined with other wound No -Current Size (cm) - Length 3 -Current Size (cm) - Width 2 -Current Size (cm) - Depth 2 -Total Square Cm 6 -Date of Last Picture (Recall this 07/14/24 field) -Photo Taken Yes -Epithelialization None Present -Tunneling Yes -Tunneling Position (O'clock) 7 -Tunneling Distance (cm) 5.5 -Undermining/Tunneling No -Circular Undermining No -Exudate Amt Medium -Exudate Type Serosanguineous -Wound Margin Distinct, Outline Attached -Granulation Amt Large (67-100%) -Granulation Quality Red -Slough/Fibrin Yes -Necrosis Amt Small (1-33%) -Necrotic Tissue Type Adherent Slough -Texture (Miranda-wound Skin Appearance) Assessed -Moisture (Miranda-wound Skin Appearance) Assessed -Color (Miranda-wound Skin Appearance) Assessed -Temperature (Miranda-wound Skin No Abnormality Appearance) (Pt Warm) -Tenderness on Palpation (Miranda-wound No Skin Appearance) -Ulcer Cleansing Soap and Water -Foul Odor after Cleansing No -Anesthetic Used 4% Lidocaine Solution - Nurse 2 - General Ulcer CM Notes Start: 07/14/24 14:31 Freq: Status: Active Protocol: Activity Type Activity Date Activity User E-sign Co-sign Detail Recorded Client Recorded Date Recorded By Document 07/14/24 15:01 [email or web address] [id number] 07/14/24 15:08 07/14/24 15:01 Wound Center Nurse 2 #2 Penis/Scrotum -Correct Patient No -Correct Side, Site, Position No -Correct Procedure No -Procedure Performed No -Wound/Ulcer Outcome Not Healed #1 R Buttocks -Time 15:04 -Correct Patient Yes -Correct Side, Site, Position Yes -Correct Procedure Yes -Procedure Performed Yes -Type of Procedure Debridement -Clinical Debridement Muscle / Fascia -Tissue Removed Muscle,Fascia -Post Debridement (cm) - Length 4.0 -Post Debridement (cm) - Width 3.0 -Post Debridement (cm) - Depth 5.0 -Total Square (Post) (cm) 12.00 -Area of Debridement (cm) - Length 4.0 -Area of Debridement (cm) - Width 3.0 -Total Square (Area) (cm) 12.00 -Tunneling Yes -Tunneling Position (O'clock) 12 -Tunneling Distance (cm) 4 -Tunneling Position #2 (O'clock) 3 -Tunneling Distance #2 (cm) 4 -Undermining/Tunneling Yes -Undermining/Tunneling Starts (O'clock 9 ) -Maximum Distance (cm) 2 -Circular Undermining No -Wound/Ulcer Outcome Not Healed -Ulcer Cleansing Rinsed/ Irrigated with Saline -Foul Odor after Cleansing No -Bioengineered Tissue No -Bleeding Controlled with Pressure -Treatment Response Procedure Tolerated Well -Offloading No -Debridement - Muscle / Fascia, 1st Yes 20sq cm Pain Scale: 0-10 Numeric Is Patient Pain Free? Yes - Nurse 3 - General Ulcer D/C NN Start: 07/14/24 14:31 Freq: Status: Active Protocol: Activity Type Activity Date Activity User E-sign Co-sign Detail Recorded Client Recorded Date Recorded By Document 07/14/24 15:28 [facility] [id number] 07/14/24 15:29 [facility] 07/14/24 15:28 Wound Care Center Nurse 3 #2 Penis/Scrotum -Primary Dressing Covered/Secured with Dry Gauze #1 R Buttocks -Ulcer Cleansing Rinsed/ Irrigated with Saline -Foul Odor after Cleansing No -Other Dressing dakins moist gauze -Primary Dressing Covered/Secured with Secured with Tape -Other Covering abd Treatment Response Procedure Tolerated Well Pain Scale: 0-10 Numeric Is Patient Pain Free? Yes WC - Visit Discharge Discharge Condition Stable Ambulatory Status Wheelchair Transportation ecf Facility Type [facility] Facility Charges/Coding Visit Charges Office Visits / Consults: 30865 OV L4 New 45min (25 modifier ) Procedures Integumentary 111xxx-113xx: 30552 Janny musc/fascia 20 sq cm/< Assessment/Plan Assessment/Plan (1) Decubitus ulcer of right buttock, stage 4: CODE(S): L89.314 - Pressure ulcer of right buttock, stage 4 PLAN: I am concerned that the wound VAC was not getting into the deeper and more tunneled portions of the wound. Today these areas had significant exudate and biofilm. I am changing him to Dakin's wet-to-dry dressings twice daily to clean the wound and decrease biofilm/necrotic tissue. F/u in 2 weeks to check the progress of the wound. I talked to him extensively about pressure offloading (he does have an air bed at the [facility]), as well as working with physical therapy on ambulating (must start walking and getting stronger as this will improve ability to pressure offload the wound). (2) Type 2 diabetes mellitus: CODE(S): E11.9 - Type 2 diabetes mellitus without complications PLAN: We have referred him to the dietitian/piano player for evaluation in the setting of albumin of 1.4 and poor nutrition with regards to chronically elevated A1c in the setting of his type 2 diabetes. We will also need to coordinate with his primary care women's health care nurse practitioner about better control with his blood sugars
--- NOTE | 2024-07-16 13:23 | WC ---
PHOTO SCROTUM 07/14/24
--- NOTE | 2024-07-16 13:26 | WC ---
PHOTO 07/14/24 RIGHT BUTTOCK
== END 2024-07-19 23:59 | disposition home or self-care (01) ==
LOC: WC 14:28
PROVIDERS: Visit Provider Surgery Plastic and Reconstructive Surgery
DX: L89.314 Pressure ulcer of right buttock, stage 4 (principal); E11.42 Type 2 diabetes mellitus with diabetic polyneuropathy; Z79.4 Long term (current) use of insulin; D64.9 Anemia, unspecified; F17.210 Nicotine dependence, cigarettes, uncomplicated; Z79.84 Long term (current) use of oral hypoglycemic drugs; Z79.01 Long term (current) use of anticoagulants
CPT/HCPCS: 11043

== ENCOUNTER 2024-07-28 14:50 | Outpatient (RCR) | payer MEDICAID, SELFPAY ==
[2024-07-20 00:52] VITALS: BP 71/48; PULSE 84; RESP 16; TEMP 35.3; BMI 30.6
[2024-07-28 14:53] VITALS: RESP 18; TEMP 36.2; BMI 30.6
== END 2024-08-18 23:59 | disposition home or self-care (01) ==
LOC: WC 14:50
PROVIDERS: Visit Provider Surgery Plastic and Reconstructive Surgery
DX: L89.314 Pressure ulcer of right buttock, stage 4 (principal); I48.91 Unspecified atrial fibrillation; E11.9 Type 2 diabetes mellitus without complications; F17.210 Nicotine dependence, cigarettes, uncomplicated; Z79.01 Long term (current) use of anticoagulants; Z79.899 Other long term (current) drug therapy
CPT/HCPCS: 11043

== ENCOUNTER 2024-09-17 14:15 | Outpatient (RCR) | payer MEDICAID, SELFPAY ==
[2024-08-19 00:22] VITALS: BP 71/48; PULSE 84; RESP 16; TEMP 35.3; BMI 30.6
[2024-08-27 15:25] VITALS: BP 183/98; PULSE 83; RESP 18; TEMP 36.5; BMI 30.6
--- NOTE | 2024-08-27 16:22 | PCM.WC.PN ---
History of Present Illness Date of Service: 08/27/24 Chief Complaint: Right Buttock Ulcer History of Wound: Sreekanth Millan is a 49-year-old type II diabetic (often high A1c, sometimes between 13 and 14), as well as atrial fibrillation on 5 mg of Eliquis twice daily, who presents today as a transport [facility] where he is being cared for because of a nonhealing right buttock ulcer. 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 His scrotal wound/penile wound have improved greatly and with wet to dry dressings, but he reports that his pressure sore from being immobilized from critical illness is persistent. They have been doing a wound VAC on this pressure sore and he thinks that stool is getting in and around the wound VAC unfortunately. He had a catheter but discontinued it himself once he got home form the [facility]. He states that he is doing well at home. He has assistance with his wound care. He is a daily cigarette smoker. Today he denies fever, chills, nausea and vomiting. Progress of Wound: He is home from the [facility]. He states that the ulcer at the base of his penis was healed, but not he thinks it is swollen and might have some drainage. There is an ulcer cluster on the right upper portion at the base of his penis. It is draining serous drainage, the base of the ulcer cluster is pink. He has concern about white drainage from the tip of his penis. His right gluteal ulcer is smaller in size and beefy pink in color. He has been doing twice daily Dakin's moistened gauze topped with ABD/gauze to his right gluteal ulcer. He has not been placing any dressings on the base of his penis, he did not realize there was ulcer opening there. Objective Data Objective Data Vital Signs: Vital Signs Temp Pulse Resp BP 97.7 F L 83 18 183/98 H 08/27/24 15:25 08/27/24 15:25 08/27/24 15:25 08/27/24 15:25 Weight: 238 lb 11.202 oz Body Mass Index (BMI) 30.6 Charges/Coding Procedures Integumentary 111xxx-113xx: 03279 Janny subq tissue 20 sq cm/< (base of penis ulcer) Multi Select Codes Integumentary Integumentary CPT Codes: 96101 Janny musc/fascia 20 sq cm/< (right gluteal ulcer) Debridement Note Debridement Note Wound debrided: #1 gluteal ulcer Laterality: Right Wound Grade/Stage: Stage 4 Type of Debridement: Excisional debridement Anesthesia Used: 5% Lidocaine Gel Depth: Down to and including healthy tissue, in the subcutaneous layer and to muscle Percentage of wound debrided: 100 Instrument Used: 5mm curette Tissue Removed: Non viable tissue and slough into the muscle Severity: Fat Layer Exposed Amount of bleeding with debridement: Mild Bleeding Controlled with: Pressure and Compression and gauze Patient tolerated procedure: Patient tolerated procedure well Post-Debridement Measurements and Additional Note: Post-Debridement Measurements/Treatment WC - Nurse 1 - General Ulcer Assessment Start: 08/27/24 15:24 Freq: Status: Active Protocol: EMMANUEL Activity Type Activity Date Activity User E-sign Co-sign Detail Recorded Client Recorded Date Recorded By Document 08/27/24 15:25 DL [id number] 08/27/24 15:31 DL 08/27/24 15:25 WC - Today's Visit Information Type of service Follow-up Visit (Physician/RESERVATION CLERK ) Arrival Mode Ambulatory, Wheelchair Transfer Assistance None Patient Identification Verified (Name & Yes ) Patient Requires Transmission-Based No Precautions Height and Weight Body Mass Index (BMI) 30.6 BMI Classification Obese Vital Signs Temperature (97.8 F-99.1 F) 97.7 F L Temperature Source Temporal Pulse Rate (60-100) 83 Pulse Location Monitor Respiratory Rate (12-18) 18 Respiratory rate source Observation Blood Pressure (90/60-120/80) 183/98 H Blood Pressure Mean (mm Hg) 126 Source Monitor History Since Last Visit- (Skip if this is Patient's initial visit) Have you changed medications since your No last visit? Any new allergies or adverse reactions No Had a fall/change in ADL's that may No increase risk of falls Signs or symptoms of abuse and/or No neglect since last visit Have you been in the hospital since your No last visit? Has dressing in place as prescribed Yes Has compression in place as prescribed N/A Has offloadiing in place as prescribed Yes Experienced any changes in pain level or No management Pain Scale: 0-10 Numeric Is Patient Pain Free? Yes WC - Nurse 1 - General Ulcer Measurement Start: 08/27/24 15:24 Freq: Status: Active Protocol: Activity Type Activity Date Activity User E-sign Co-sign Detail Recorded Client Recorded Date Recorded By Document 08/27/24 15:25 DL [id number] 08/27/24 15:31 DL 08/27/24 15:25 Wound Center Nurse 1 #1 R Buttocks -Current Size (cm) - Length 2.5 -Current Size (cm) - Width 2 -Current Size (cm) - Depth 1.1 -Total Square Cm 5.0 -Undermining/Tunneling Starts (O'clock 10 ) -Undermining/Tunneling Ends (O'clock) 1 -Maximum Distance (cm) 2.2 -Exudate Amt Medium -Exudate Type Serosanguineous -Wound Margin Thickened & Rolled Under -Granulation Amt Large (67-100%) -Granulation Quality Red -Necrosis Amt Small (1-33%) -Necrotic Tissue Type Adherent Slough -Structure Exposed N/A -Texture (Miranda-wound Skin Appearance) Scarring -Moisture (Miranda-wound Skin Appearance) Maceration -Color (Miranda-wound Skin Appearance) No Abnormality -Temperature (Miranda-wound Skin No Abnormality Appearance) (Pt Warm) -Tenderness on Palpation (Miranda-wound No Skin Appearance) -Ulcer Cleansing Soap and Water -Foul Odor after Cleansing No -Anesthetic Used 5% Lidocaine Gel WC - Nurse 2 - General Ulcer CM Notes Start: 08/27/24 15:24 Freq: Status: Active Protocol: Activity Type Activity Date Activity User E-sign Co-sign Detail Recorded Client Recorded Date Recorded By Document 08/27/24 15:50 [id number] 08/27/24 16:00 08/27/24 15:50 Wound Center Nurse 2 #2 Penis/Scrotum cluster -Time 15:55 -Correct Patient Yes -Correct Side, Site, Position Yes -Correct Procedure Yes -Procedure Performed Yes -Type of Procedure Debridement -Clinical Debridement Subcutaneous -Tissue Removed Subcutaneous -Post Debridement (cm) - Length 2.5 -Post Debridement (cm) - Width 0.5 -Post Debridement (cm) - Depth 0.2 -Total Square (Post) (cm) 1.25 -Area of Debridement (cm) - Length 2.5 -Area of Debridement (cm) - Width 0.5 -Total Square (Area) (cm) 1.25 -Tunneling No -Undermining/Tunneling No -Circular Undermining No -Wound/Ulcer Outcome Not Healed -Ulcer Cleansing Rinsed/ Irrigated with Saline -Foul Odor after Cleansing No -Bioengineered Tissue No -Bleeding Controlled with Pressure -Treatment Response Procedure Tolerated Well -Debridement - Subq, 1st 20sq cm Yes #1 R Buttocks -Time 15:51 -Correct Patient Yes -Correct Side, Site, Position Yes -Correct Procedure Yes -Procedure Performed Yes -Type of Procedure Debridement -Clinical Debridement Muscle / Fascia -Tissue Removed Muscle -Post Debridement (cm) - Length 3.5 -Post Debridement (cm) - Width 2.5 -Post Debridement (cm) - Depth 0.3 -Total Square (Post) (cm) 8.75 -Area of Debridement (cm) - Length 3.5 -Area of Debridement (cm) - Width 2.5 -Total Square (Area) (cm) 8.75 -Tunneling No -Undermining/Tunneling Yes -Undermining/Tunneling Starts (O'clock 1 ) -Undermining/Tunneling Ends (O'clock) 3 -Maximum Distance (cm) 2.8 -Circular Undermining No -Wound/Ulcer Outcome Not Healed -Ulcer Cleansing Rinsed/ Irrigated with Saline -Foul Odor after Cleansing No -Bioengineered Tissue No -Bleeding Controlled with Pressure -Treatment Response Procedure Tolerated Well -Debridement - Muscle / Fascia, 1st Yes 20sq cm Pain Scale: 0-10 Numeric Is Patient Pain Free? Yes WC - Nurse 3 - General Ulcer D/C NN Start: 08/27/24 15:24 Freq: Status: Active Protocol: Activity Type Activity Date Activity User E-sign Co-sign Detail Recorded Client Recorded Date Recorded By Document 08/27/24 16:04 DL [id number] 08/27/24 16:17 DL 08/27/24 16:04 Wound Care Center Nurse 3 #2 Penis/Scrotum cluster -Ulcer Cleansing Rinsed/ Irrigated with Saline -Foul Odor after Cleansing No -Primary Dressing Applied Aquacel AG 4x4 -Primary Dressing Covered/Secured with Dry Gauze, Secured with Tape -Aquacel AG 4x4 1 #1 R Buttocks -Ulcer Cleansing Rinsed/ Irrigated with Saline -Foul Odor after Cleansing No -Other Dressing aqucel ag -Primary Dressing Covered/Secured with Dry Gauze, Secured with Tape Treatment Response Procedure Tolerated Well Pain Scale: 0-10 Numeric Is Patient Pain Free? Yes WC - Visit Discharge Discharge Condition Stable Ambulatory Status Ambulatory, Wheelchair Transportation Private Auto Additional Wound Wound debrided: #2 base of penis ulcer Laterality: Right Wound Grade/Stage: Stage 3 Type of Debridement: Excisional debridement Anesthesia Used: 5% Lidocaine Gel Depth: Down to and including healthy tissue and in the subcutaneous layer Percentage of wound debrided: 100 Instrument Used: 3mm curette Tissue Removed: Non viable tissue and slough Severity: Fat Layer Exposed Amount of bleeding with debridement: Mild Bleeding Controlled with: Pressure and Compression and gauze Patient tolerated procedure: Patient tolerated procedure well Assessment/Plan Assessment/Plan (1) Type 2 diabetes mellitus: CODE(S): E11.9 - Type 2 diabetes mellitus without complications (2) Debility: CODE(S): R53.81 - Other malaise (3) Stage 3 skin ulcer with fat layer exposed: CODE(S): L98.492 - Non-pressure chronic ulcer of skin of other sites with fat layer exposed PLAN: Plan Patient evaluated at the wound healing center today. Wound care - For his right gluteal ulcer place Aquacel-Ag into the undermined area and in the base of the ulcer, cover with fluffed gauze and ABD. To right superior base of penis place Aquacel-Ag covered with gauze to that area and secure with silicone tape. Wash both of the these areas with soap and water at the time of the daily dressing changes. Instructed him to contact his PCP or urologist about the drainage he is getting from his urethra. He needs a urine culture. He verbalized understanding. Follow up one week. Phone or come in sooner if develop any concerns.
[2024-09-17 14:44] VITALS: BP 144/73; PULSE 93; RESP 18; TEMP 36.3; BMI 30.6
--- NOTE | 2024-09-17 17:03 | PCM.WC.PN ---
History of Present Illness Date of Service: 09/17/24 Chief Complaint: Right Buttock Ulcer History of Wound: Sreekanth Millan is a 49-year-old type II diabetic (often high A1c, sometimes between 13 and 14), as well as atrial fibrillation on 5 mg of Eliquis twice daily, who presents today as a transport from a [facility] where he is being cared for because of a nonhealing right buttock ulcer. 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 His scrotal wound/penile wound have improved greatly and with wet to dry dressings, but he reports that his pressure sore from being immobilized from critical illness is persistent. They have been doing a wound VAC on this pressure sore and he thinks that stool is getting in and around the wound VAC unfortunately. He had a catheter but discontinued it himself once he got home form the [facility]. He states that he is doing well at home. He has assistance with his wound care. He is a daily cigarette smoker. Today he denies fever, chills, nausea and vomiting. Progress of Wound: The ulcer at the base of his penis is healed. He states that he has concern about leaking urine from somewhere besides his urethra. He is not sure where it is coming from, but he is wet. He denies having seen a urologist. He states that he was supposed to see one while he was in the [facility], but transportation had not been arranged and he missed the appointment. When he was discharged home, he had a hernandez catheter, but he removed it himself because he was tired of having it in. He has no urology follow up. His right gluteal ulcer is smaller in size and beefy pink in color. He has been doing Dakin's moistened gauze topped with ABD/gauze to his right gluteal ulcer. Objective Data Objective Data Vital Signs: Vital Signs Temp Pulse Resp BP O2 Del Method 97.3 F L 93 18 144/73 H Room Air 09/17/24 14:44 09/17/24 14:44 09/17/24 14:44 09/17/24 14:44 09/17/24 14:44 Oxygen Delivery Method Room Air Weight: 238 lb 11.202 oz Body Mass Index (BMI) 30.6 Charges/Coding Procedures Integumentary 111xxx-113xx: 19760 Janny musc/fascia 20 sq cm/< Debridement Note Debridement Note Wound debrided: #1 gluteal ulcer Laterality: Right Wound Grade/Stage: Stage 4 Type of Debridement: Excisional debridement Anesthesia Used: 5% Lidocaine Gel Depth: Down to and including healthy tissue, in the subcutaneous layer and to muscle Percentage of wound debrided: 100 Instrument Used: 5mm curette Tissue Removed: Non viable tissue and slough into the muscle Severity: Fat Layer Exposed Amount of bleeding with debridement: Mild Bleeding Controlled with: Pressure, Compression and gauze and Silver Nitrate Patient tolerated procedure: Patient tolerated procedure well Post-Debridement Measurements and Additional Note: Post-Debridement Measurements/Treatment - Nurse 1 - General Ulcer Assessment Start: 08/27/24 15:24 Freq: Status: Active Protocol: .[place] Activity Type Activity Date Activity User E-sign Co-sign Detail Recorded Client Recorded Date Recorded By Document 08/27/24 15:25 DL [id number] 08/27/24 15:31 DL Document 09/17/24 14:44 KW [id number] 09/17/24 14:53 KW 08/27/24 09/17/24 15:25 14:44 - Today's Visit Information Type of service Follow-up Visit Follow-up Visit (Physician/MACHINE TOOL TECHNOLOGY INSTRUCTOR (Physician/MACHINE TOOL TECHNOLOGY INSTRUCTOR ) ) Arrival Mode Ambulatory, Wheelchair Wheelchair Transfer Assistance None Patient Identification Verified (Name & Yes Yes ) Patient Requires Transmission-Based No Precautions Height and Weight Body Mass Index (BMI) 30.6 30.6 BMI Classification Obese Obese Vital Signs Temperature (97.8 F-99.1 F) 97.7 F L 97.3 F L Temperature Source Temporal Temporal Pulse Rate (60-100) 83 93 Pulse Location Monitor Monitor Respiratory Rate (12-18) 18 18 Respiratory rate source Observation Observation Oxygen Delivery Method Room Air Blood Pressure (90/60-120/80) 183/98 H 144/73 H Blood Pressure Mean (mm Hg) 126 96 Source Monitor Monitor Position Right Lateral Blood Pressure Location Left Arm History Since Last Visit- (Skip if this is Patient's initial visit) Have you changed medications since your No No last visit? Any new allergies or adverse reactions No No Had a fall/change in ADL's that may No No increase risk of falls Signs or symptoms of abuse and/or No No neglect since last visit Have you been in the hospital since your No No last visit? Has dressing in place as prescribed Yes Yes Has compression in place as prescribed N/A N/A Has offloadiing in place as prescribed Yes N/A Experienced any changes in pain level or No No management Left Footwear Slipper Right Footwear Slipper Pain Scale: 0-10 Numeric Is Patient Pain Free? Yes Yes WC - Nurse 1 - General Ulcer Measurement Start: 08/27/24 15:24 Freq: Status: Active Protocol: Activity Type Activity Date Activity User E-sign Co-sign Detail Recorded Client Recorded Date Recorded By Document 08/27/24 15:25 DL [id number] 08/27/24 15:31 DL Document 09/17/24 14:44 KW [id number] 09/17/24 14:53 KW 08/27/24 09/17/24 15:25 14:44 Wound Center Nurse 1 #2 Penis/Scrotum cluster -Current Size (cm) - Width 2.2 -Current Size (cm) - Depth 0.4 -Undermining/Tunneling Yes -Undermining/Tunneling Starts (O'clock 1 ) -Undermining/Tunneling Ends (O'clock) 3 -Maximum Distance (cm) 2 #1 R Buttocks -Current Size (cm) - Length 2.5 2.4 -Current Size (cm) - Width 2 2.2 -Current Size (cm) - Depth 1.1 0.4 -Total Square Cm 5.0 5.28 -Undermining/Tunneling Yes -Undermining/Tunneling Starts (O'clock 10 1 ) -Undermining/Tunneling Ends (O'clock) 1 3 -Maximum Distance (cm) 2.2 2 -Exudate Amt Medium Medium -Exudate Type Serosanguineous Serosanguineous -Wound Margin Thickened & Thickened & Rolled Under Rolled Under -Granulation Amt Large (67-100%) Large (67-100%) -Granulation Quality Red [place],Red -Necrosis Amt Small (1-33%) Small (1-33%) -Necrotic Tissue Type Adherent Slough Adherent Slough -Structure Exposed N/A -Texture (Miranda-wound Skin Appearance) Scarring Assessed -Moisture (Miranda-wound Skin Appearance) Maceration Assessed -Color (Miranda-wound Skin Appearance) No Abnormality Assessed -Temperature (Miranda-wound Skin No Abnormality No Abnormality Appearance) (Pt Warm) (Pt Warm) -Tenderness on Palpation (Miranda-wound No No Skin Appearance) -Ulcer Cleansing Soap and Water Rinsed/ Irrigated with Saline -Foul Odor after Cleansing No No -Anesthetic Used 5% Lidocaine 5% Lidocaine Gel Gel WC - Nurse 2 - General Ulcer CM Notes Start: 08/27/24 15:24 Freq: Status: Active Protocol: Activity Type Activity Date Activity User E-sign Co-sign Detail Recorded Client Recorded Date Recorded By Document 08/27/24 15:50 [id number] 08/27/24 16:00 GM Document 09/17/24 15:29 [id number] 09/17/24 15:37 GM 08/27/24 09/17/24 15:50 15:29 Wound Center Nurse 2 #2 Penis/Scrotum cluster -Time 15:55 -Correct Patient Yes -Correct Side, Site, Position Yes -Correct Procedure Yes -Procedure Performed Yes -Type of Procedure Debridement -Clinical Debridement Subcutaneous -Tissue Removed Subcutaneous -Post Debridement (cm) - Length 2.5 -Post Debridement (cm) - Width 0.5 -Post Debridement (cm) - Depth 0.2 -Total Square (Post) (cm) 1.25 -Area of Debridement (cm) - Length 2.5 -Area of Debridement (cm) - Width 0.5 -Total Square (Area) (cm) 1.25 -Tunneling No -Undermining/Tunneling No -Circular Undermining No -Wound/Ulcer Outcome Not Healed -Ulcer Cleansing Rinsed/ Irrigated with Saline -Foul Odor after Cleansing No -Bioengineered Tissue No -Bleeding Controlled with Pressure -Treatment Response Procedure Tolerated Well -Debridement - Subq, 1st 20sq cm Yes #1 R Buttocks -Time 15:51 15:29 -Correct Patient Yes Yes -Correct Side, Site, Position Yes Yes -Correct Procedure Yes Yes -Procedure Performed Yes Yes -Type of Procedure Debridement Debridement -Clinical Debridement Muscle / Fascia Muscle / Fascia -Tissue Removed Muscle Muscle -Post Debridement (cm) - Length 3.5 3.3 -Post Debridement (cm) - Width 2.5 2.7 -Post Debridement (cm) - Depth 0.3 0.5 -Total Square (Post) (cm) 8.75 8.91 -Area of Debridement (cm) - Length 3.5 3.3 -Area of Debridement (cm) - Width 2.5 2.7 -Total Square (Area) (cm) 8.75 8.91 -Tunneling No No -Undermining/Tunneling Yes Yes -Undermining/Tunneling Starts (O'clock 1 1 ) -Undermining/Tunneling Ends (O'clock) 3 3 -Maximum Distance (cm) 2.8 2.1 -Circular Undermining No -Wound/Ulcer Outcome Not Healed Not Healed -Ulcer Cleansing Rinsed/ Rinsed/ Irrigated with Irrigated with Saline Saline -Foul Odor after Cleansing No No -Bioengineered Tissue No No -Bleeding Controlled with Pressure Pressure -Treatment Response Procedure Procedure Tolerated Well Tolerated Well -Debridement - Muscle / Fascia, 1st Yes Yes 20sq cm Pain Scale: 0-10 Numeric Is Patient Pain Free? Yes Yes - Nurse 3 - General Ulcer D/C NN Start: 08/27/24 15:24 Freq: Status: Active Protocol: Activity Type Activity Date Activity User E-sign Co-sign Detail Recorded Client Recorded Date Recorded By Document 08/27/24 16:04 DL [id number] 08/27/24 16:17 DL Document 09/17/24 15:53 KW [id number] 09/17/24 15:54 KW 08/27/24 09/17/24 16:04 15:53 Wound Care Center Nurse 3 #2 Penis/Scrotum cluster -Ulcer Cleansing Rinsed/ Irrigated with Saline -Foul Odor after Cleansing No -Primary Dressing Applied Aquacel AG 4x4 -Primary Dressing Covered/Secured with Dry Gauze, Secured with Tape -Aquacel AG 4x4 1 #1 R Buttocks -Ulcer Cleansing Rinsed/ Rinsed/ Irrigated with Irrigated with Saline Saline -Foul Odor after Cleansing No -Primary Dressing Applied Aquacel AG 4x4 -Other Dressing aqucel ag -Primary Dressing Covered/Secured with Dry Gauze, Dry Gauze, Secured with Secured with Tape Tape -Aquacel AG 4x4 1 Treatment Response Procedure Tolerated Well Pain Scale: 0-10 Numeric Is Patient Pain Free? Yes Yes - Visit Discharge Discharge Condition Stable Stable Ambulatory Status Ambulatory, Wheelchair Wheelchair Transportation Private Auto Private Auto Medication Reconcilliation completed & No provided to patient/care provider Clinical Summary of Care Provided Yes Assessment/Plan Assessment/Plan (1) Decubitus ulcer of right buttock, stage 4: CODE(S): L89.314 - Pressure ulcer of right buttock, stage 4 (2) Type 2 diabetes mellitus: CODE(S): E11.9 - Type 2 diabetes mellitus without complications (3) Debility: CODE(S): R53.81 - Other malaise (4) History of Jean's gangrene: CODE(S): Z87.438 - Personal history of other diseases of male genital organs PLAN: Plan Patient evaluated at the wound healing center today. Wound care - For his right gluteal ulcer place Aquacel-Ag into the undermined area and in the base of the ulcer, cover with fluffed gauze and ABD daily. Wash both of the these areas with soap and water at the time of the daily dressing changes. He has never seen a urologist since being discharged from the hospital after his Jean's gangrene. He states he does not remember ever seeing a urologist. He would like to be referred to [facility] to see a urologist for his urinary issues he is experiencing Follow up two weeks. Phone or come in sooner if develop any concerns.
== END 2024-09-18 23:59 | disposition home or self-care (01) ==
LOC: WC 14:15
PROVIDERS: Visit Provider Surgery Plastic and Reconstructive Surgery
DX: L89.314 Pressure ulcer of right buttock, stage 4 (principal); L98.492 Non-pressure chronic ulcer of skin of other sites with fat layer exposed; I48.91 Unspecified atrial fibrillation; E11.9 Type 2 diabetes mellitus without complications; R53.81 Other malaise; F17.210 Nicotine dependence, cigarettes, uncomplicated; Z79.01 Long term (current) use of anticoagulants; Z79.899 Other long term (current) drug therapy; Z87.438 Personal history of other diseases of male genital organs
CPT/HCPCS: 11042; 11043

== ENCOUNTER 2024-10-15 14:48 | Outpatient (RCR) | payer MEDICAID, SELFPAY ==
[2024-09-19 00:38] VITALS: BP 71/48; PULSE 84; RESP 16; TEMP 35.3; BMI 30.6
[2024-10-15 14:06] VITALS: BP 196/88; PULSE 83; RESP 15; TEMP 35.8; BMI 30.6
--- NOTE | 2024-10-15 14:55 | PCM.WC.PN ---
History of Present Illness Date of Service: 10/15/24 Chief Complaint: Right Buttock Ulcer History of Wound: Sreekanth Millan is a 49-year-old type II diabetic (often high A1c, sometimes between 13 and 14), as well as atrial fibrillation on 5 mg of Eliquis twice daily, who presents today as a transport from a [facility]way where he is being cared for because of a nonhealing right buttock ulcer. 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 His scrotal wound/penile wound have improved greatly and with wet to dry dressings, but he reports that his pressure sore from being immobilized from critical illness is persistent. They have been doing a wound VAC on this pressure sore and he thinks that stool is getting in and around the wound VAC unfortunately. He had a catheter but discontinued it himself once he got home form the [facility]. He states that he is doing well at home. He has assistance with his wound care. He is a daily cigarette smoker. Today he denies fever, chills, nausea and vomiting. Progress of Wound: He has concerns about his wound in pubic area above penis leaking clear liquid. I suspect that he has a fistula and the drainage appears to be urine. His right buttock ulcer is slightly smaller. He is scheduled to see urology in [place] on 10/21/24. Objective Data Objective Data Vital Signs: Vital Signs Temp Pulse Resp BP 96.4 F L 83 15 196/88 H 10/15/24 14:06 10/15/24 14:06 10/15/24 14:06 10/15/24 14:06 Weight: 238 lb 11.202 oz Body Mass Index (BMI) 30.6 Charges/Coding Procedures Integumentary 111xxx-113xx: 04427 Janny subq tissue 20 sq cm/< Debridement Note Debridement Note Wound debrided: #1 gluteal ulcer Laterality: Right Wound Grade/Stage: Stage 4 Type of Debridement: Excisional debridement Anesthesia Used: 5% Lidocaine Gel Depth: Down to and including healthy tissue and in the subcutaneous layer Percentage of wound debrided: 100 Instrument Used: 5mm curette Tissue Removed: Non viable tissue and slough Severity: Fat Layer Exposed Amount of bleeding with debridement: Mild Bleeding Controlled with: Pressure and Compression and gauze Patient tolerated procedure: Patient tolerated procedure well Post-Debridement Measurements and Additional Note: Post-Debridement Measurements/Treatment - Nurse 1 - General Ulcer Assessment Start: 10/15/24 14:06 Freq: Status: Active Protocol: EMMANUEL Activity Type Activity Date Activity User E-sign Co-sign Detail Recorded Client Recorded Date Recorded By Document 10/15/24 14:06 GREGORIA [id number] 10/15/24 14:23 10/15/24 14:06 - Today's Visit Information Type of service Follow-up Visit (Physician/TRANSPORT AIDE ) Arrival Mode Walker Patient Identification Verified (Name & Yes ) Patient Requires Transmission-Based No Precautions Height and Weight Body Mass Index (BMI) 30.6 BMI Classification Obese Vital Signs Temperature (97.8 F-99.1 F) 96.4 F L Temperature Source Temporal Pulse Rate (60-100) 83 Pulse Location Monitor Respiratory Rate (12-18) 15 Respiratory rate source Observation Blood Pressure (90/60-120/80) 196/88 H Blood Pressure Mean (mm Hg) 124 Source Monitor Position Sitting Blood Pressure Location Right Arm History Since Last Visit- (Skip if this is Patient's initial visit) Have you changed medications since your No last visit? Any new allergies or adverse reactions No Had a fall/change in ADL's that may No increase risk of falls Signs or symptoms of abuse and/or No neglect since last visit Have you been in the hospital since your No last visit? Has dressing in place as prescribed Yes Has compression in place as prescribed N/A Has offloadiing in place as prescribed N/A Experienced any changes in pain level or No management Pain Scale: 0-10 Numeric Is Patient Pain Free? Yes - Nurse 1 - General Ulcer Measurement Start: 10/15/24 14:06 Freq: Status: Active Protocol: Activity Type Activity Date Activity User E-sign Co-sign Detail Recorded Client Recorded Date Recorded By Document 10/15/24 14:06 GREGORIA [id number] 10/15/24 14:23 10/15/24 14:06 Wound Center Nurse 1 #3 MEDIAL PUBIC AREA -Current Size (cm) - Length 0.3 -Current Size (cm) - Width 0.1 -Current Size (cm) - Depth 0.1 -Total Square Cm 0.03 -Exudate Amt Medium -Exudate Type Yellow/Green -Granulation Amt Medium (34-66%) -Necrosis Amt Medium (34-66%) -Necrotic Tissue Type Adherent Slough -Texture (Miranda-wound Skin Appearance) Not Assessed -Moisture (Miranda-wound Skin Appearance) No Abnormality -Color (Miranda-wound Skin Appearance) No Abnormality -Temperature (Miranda-wound Skin No Abnormality Appearance) (Pt Warm) -Tenderness on Palpation (Miranda-wound No Skin Appearance) -Ulcer Cleansing Rinsed/ Irrigated with Saline -Anesthetic Used 5% Lidocaine Gel #1 R Buttocks -Current Size (cm) - Length 3 -Current Size (cm) - Width 3.1 -Current Size (cm) - Depth 0.5 -Total Square Cm 9.3 -Epithelialization Medium 34-66% -Undermining/Tunneling Yes -Undermining/Tunneling Starts (O'clock 1 ) -Undermining/Tunneling Ends (O'clock) 2 -Maximum Distance (cm) 2 -Circular Undermining No -Exudate Amt Medium -Exudate Type Serosanguineous -Wound Margin Thickened & Rolled Under -Granulation Amt Medium (34-66%) -Necrosis Amt Medium (34-66%) -Necrotic Tissue Type Adherent Slough -Texture (Miranda-wound Skin Appearance) Not Assessed -Moisture (Miranda-wound Skin Appearance) No Abnormality -Color (Miranda-wound Skin Appearance) Not Assessed -Temperature (Miranda-wound Skin No Abnormality Appearance) (Pt Warm) -Tenderness on Palpation (Miranda-wound No Skin Appearance) -Ulcer Cleansing Rinsed/ Irrigated with Saline -Foul Odor after Cleansing No -Anesthetic Used 5% Lidocaine Gel WC - Nurse 2 - General Ulcer CM Notes Start: 10/15/24 14:06 Freq: Status: Active Protocol: Activity Type Activity Date Activity User E-sign Co-sign Detail Recorded Client Recorded Date Recorded By Document 10/15/24 14:49 CP [id number] 10/15/24 14:53 CP 10/15/24 14:49 Wound Center Nurse 2 #3 MIEDIAL PUBIC AREA -Time 14:50 -Correct Patient Yes -Correct Side, Site, Position Yes -Correct Procedure Yes -Procedure Performed Yes -Type of Procedure Debridement -Clinical Debridement Subcutaneous -Tissue Removed Subcutaneous -Post Debridement (cm) - Length 0.5 -Post Debridement (cm) - Width 0.5 -Post Debridement (cm) - Depth 2.5 -Total Square (Post) (cm) 0.25 -Area of Debridement (cm) - Length 0.5 -Area of Debridement (cm) - Width 0.5 -Total Square (Area) (cm) 0.25 -Wound/Ulcer Outcome Not Healed -Ulcer Cleansing Soap and Water -Bleeding Controlled with Pressure -Treatment Response Procedure Tolerated Well -Debridement - Subq, 1st 20sq cm Yes #1 R Buttocks -Time 14:51 -Correct Patient Yes -Correct Side, Site, Position Yes -Correct Procedure Yes -Procedure Performed Yes -Type of Procedure Debridement -Clinical Debridement Subcutaneous -Tissue Removed Subcutaneous -Post Debridement (cm) - Length 2 -Post Debridement (cm) - Width 2.2 -Post Debridement (cm) - Depth 0.2 -Total Square (Post) (cm) 4.4 -Area of Debridement (cm) - Length 2 -Area of Debridement (cm) - Width 2.2 -Total Square (Area) (cm) 4.4 -Tunneling No -Wound/Ulcer Outcome Not Healed -Ulcer Cleansing Rinsed/ Irrigated with Saline -Foul Odor after Cleansing No -Bleeding Controlled with Pressure -Treatment Response Procedure Tolerated Well -Debridement - Subq, 1st 20sq cm Yes Pain Scale: 0-10 Numeric Is Patient Pain Free? Yes Additional Wound Wound debrided: #3 medial pubic ulcer above penis Type of Debridement: Excisional debridement Anesthesia Used: 5% Lidocaine Gel Depth: Down to and including healthy tissue and in the subcutaneous layer Percentage of wound debrided: 100 Instrument Used: 3mm curette Tissue Removed: non viable tissue and slough Severity: Fat Layer Exposed Amount of bleeding with debridement: Mild Bleeding Controlled with: Compression and gauze Assessment/Plan Assessment/Plan (1) Decubitus ulcer of right buttock, stage 4: CODE(S): L89.314 - Pressure ulcer of right buttock, stage 4 (2) Type 2 diabetes mellitus: CODE(S): E11.9 - Type 2 diabetes mellitus without complications (3) Debility: CODE(S): R53.81 - Other malaise (4) History of Jean's gangrene: CODE(S): Z87.438 - Personal history of other diseases of male genital organs (5) Stage 3 skin ulcer with fat layer exposed: CODE(S): L98.492 - Non-pressure chronic ulcer of skin of other sites with fat layer exposed PLAN: Plan Patient evaluated at the wound healing center today. Wound care - For his right gluteal ulcer place Aquacel-Ag into the undermined area and in the base of the ulcer, cover with fluffed gauze and ABD daily. To the ulcer on pubic area proximal to penis, pack with iodoform gauze and cover with gauze/ABD daily and prn. Wash both of the these areas with soap and water at the time of the daily dressing changes. He is scheduled to see a urologist on 10/21/24 at [place]. Instructed him to show them the ulcer proximal to his penis. Concerned there may be a fistula. The drainage is clear, thin, liquid. Follow up two weeks. Phone or come in sooner if develop any concerns.
--- NOTE | 2024-10-15 15:24 | PCM.WC.PN ---
History of Present Illness Date of Service: 10/15/24 Chief Complaint: Right Buttock Ulcer History of Wound: Sreekanth Millan is a 49-year-old type II diabetic (often high A1c, sometimes between 13 and 14), as well as atrial fibrillation on 5 mg of Eliquis twice daily, who presents today as a [facility] because of a nonhealing right buttock ulcer. 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 His scrotal wound/penile wound have improved greatly and with wet to dry dressings, but he reports that his pressure sore from being immobilized from critical illness is persistent. They have been doing a wound VAC on this pressure sore and he thinks that stool is getting in and around the wound VAC unfortunately. He had a catheter but discontinued it himself once he got home form the [facility]. He states that he is doing well at home. He has assistance with his wound care. He is a daily cigarette smoker. Today he denies fever, chills, nausea and vomiting. Progress of Wound: He has concerns about his wound in pubic area above penis leaking clear liquid. I suspect that he has a fistula and the drainage appears to be urine. His right buttock ulcer is slightly smaller. He is scheduled to see urology in [place] on 10/21/24. Objective Data Objective Data Vital Signs: Vital Signs Temp Pulse Resp BP 96.4 F L 83 15 196/88 H 10/15/24 14:06 10/15/24 14:06 10/15/24 14:06 10/15/24 14:06 Weight: 238 lb 11.202 oz Body Mass Index (BMI) 30.6 Debridement Note Debridement Note Post-Debridement Measurements and Additional Note: Post-Debridement Measurements/Treatment - Nurse 1 - General Ulcer Assessment Start: 10/15/24 14:06 Freq: Status: Active Protocol: PHYLLIS.LOWEXT Activity Type Activity Date Activity User E-sign Co-sign Detail Recorded Client Recorded Date Recorded By Document 10/15/24 14:06 GREGORIA [id number] 10/15/24 14:23 KW 10/15/24 14:06 - Today's Visit Information Type of service Follow-up Visit (Physician/MACHINIST FIRST CLASS ) Arrival Mode Walker Patient Identification Verified (Name & Yes ) Patient Requires Transmission-Based No Precautions Height and Weight Body Mass Index (BMI) 30.6 BMI Classification Obese Vital Signs Temperature (97.8 F-99.1 F) 96.4 F L Temperature Source Temporal Pulse Rate (60-100) 83 Pulse Location Monitor Respiratory Rate (12-18) 15 Respiratory rate source Observation Blood Pressure (90/60-120/80) 196/88 H Blood Pressure Mean (mm Hg) 124 Source Monitor Position Sitting Blood Pressure Location Right Arm History Since Last Visit- (Skip if this is Patient's initial visit) Have you changed medications since your No last visit? Any new allergies or adverse reactions No Had a fall/change in ADL's that may No increase risk of falls Signs or symptoms of abuse and/or No neglect since last visit Have you been in the hospital since your No last visit? Has dressing in place as prescribed Yes Has compression in place as prescribed N/A Has offloadiing in place as prescribed N/A Experienced any changes in pain level or No management Pain Scale: 0-10 Numeric Is Patient Pain Free? Yes - Nurse 1 - General Ulcer Measurement Start: 10/15/24 14:06 Freq: Status: Active Protocol: Activity Type Activity Date Activity User E-sign Co-sign Detail Recorded Client Recorded Date Recorded By Document 10/15/24 14:06 [id number] 10/15/24 14:23 10/15/24 14:06 Wound Center Nurse 1 #3 PUBIC AREA -Current Size (cm) - Length 0.3 -Current Size (cm) - Width 0.1 -Current Size (cm) - Depth 0.1 -Total Square Cm 0.03 -Exudate Amt Medium -Exudate Type Yellow/Green -Granulation Amt Medium (34-66%) -Necrosis Amt Medium (34-66%) -Necrotic Tissue Type Adherent Slough -Texture (Miranda-wound Skin Appearance) Not Assessed -Moisture (Miranda-wound Skin Appearance) No Abnormality -Color (Miranda-wound Skin Appearance) No Abnormality -Temperature (Miranda-wound Skin No Abnormality Appearance) (Pt Warm) -Tenderness on Palpation (Miranda-wound No Skin Appearance) -Ulcer Cleansing Rinsed/ Irrigated with Saline -Anesthetic Used 5% Lidocaine Gel #1 R Buttocks -Current Size (cm) - Length 3 -Current Size (cm) - Width 3.1 -Current Size (cm) - Depth 0.5 -Total Square Cm 9.3 -Epithelialization Medium 34-66% -Undermining/Tunneling Yes -Undermining/Tunneling Starts (O'clock 1 ) -Undermining/Tunneling Ends (O'clock) 2 -Maximum Distance (cm) 2 -Circular Undermining No -Exudate Amt Medium -Exudate Type Serosanguineous -Wound Margin Thickened & Rolled Under -Granulation Amt Medium (34-66%) -Necrosis Amt Medium (34-66%) -Necrotic Tissue Type Adherent Slough -Texture (Miranda-wound Skin Appearance) Not Assessed -Moisture (Miranda-wound Skin Appearance) No Abnormality -Color (Miranda-wound Skin Appearance) Not Assessed -Temperature (Miranda-wound Skin No Abnormality Appearance) (Pt Warm) -Tenderness on Palpation (Miranda-wound No Skin Appearance) -Ulcer Cleansing Rinsed/ Irrigated with Saline -Foul Odor after Cleansing No -Anesthetic Used 5% Lidocaine Gel WC - Nurse 2 - General Ulcer CM Notes Start: 10/15/24 14:06 Freq: Status: Active Protocol: Activity Type Activity Date Activity User E-sign Co-sign Detail Recorded Client Recorded Date Recorded By Document 10/15/24 14:49 [id number] 10/15/24 14:53 CP 10/15/24 14:49 Wound Center Nurse 2 #3 PUBIC AREA -Time 14:50 -Correct Patient Yes -Correct Side, Site, Position Yes -Correct Procedure Yes -Procedure Performed Yes -Type of Procedure Debridement -Clinical Debridement Subcutaneous -Tissue Removed Subcutaneous -Post Debridement (cm) - Length 0.5 -Post Debridement (cm) - Width 0.5 -Post Debridement (cm) - Depth 2.5 -Total Square (Post) (cm) 0.25 -Area of Debridement (cm) - Length 0.5 -Area of Debridement (cm) - Width 0.5 -Total Square (Area) (cm) 0.25 -Wound/Ulcer Outcome Not Healed -Ulcer Cleansing Soap and Water -Bleeding Controlled with Pressure -Treatment Response Procedure Tolerated Well -Debridement - Subq, 1st 20sq cm Yes #1 R Buttocks -Time 14:51 -Correct Patient Yes -Correct Side, Site, Position Yes -Correct Procedure Yes -Procedure Performed Yes -Type of Procedure Debridement -Clinical Debridement Subcutaneous -Tissue Removed Subcutaneous -Post Debridement (cm) - Length 2 -Post Debridement (cm) - Width 2.2 -Post Debridement (cm) - Depth 0.2 -Total Square (Post) (cm) 4.4 -Area of Debridement (cm) - Length 2 -Area of Debridement (cm) - Width 2.2 -Total Square (Area) (cm) 4.4 -Tunneling No -Wound/Ulcer Outcome Not Healed -Ulcer Cleansing Rinsed/ Irrigated with Saline -Foul Odor after Cleansing No -Bleeding Controlled with Pressure -Treatment Response Procedure Tolerated Well -Debridement - Subq, 1st 20sq cm Yes Pain Scale: 0-10 Numeric Is Patient Pain Free? Yes - Nurse 3 - General Ulcer D/C NN Start: 10/15/24 14:06 Freq: Status: Active Protocol: Activity Type Activity Date Activity User E-sign Co-sign Detail Recorded Client Recorded Date Recorded By Document 10/15/24 15:10 ML [id number] 10/15/24 15:12 ML 10/15/24 15:10 Wound Care Center Nurse 3 #3 PUBIC AREA -Ulcer Cleansing Rinsed/ Irrigated with Saline -Foul Odor after Cleansing No -Other Dressing PACK WITH IODOFORM,ABD -Primary Dressing Covered/Secured with Secured with Tape #1 R Buttocks -Ulcer Cleansing Rinsed/ Irrigated with Saline -Foul Odor after Cleansing No -Primary Dressing Applied Aquacel AG 4x4 -Other Dressing ABD -Primary Dressing Covered/Secured with Secured with Tape -Aquacel AG 4x4 1 Pain Scale: 0-10 Numeric Is Patient Pain Free? Yes
--- NOTE | 2024-10-21 15:04 | WC ---
PHOTO MID PUBIC AREA 10/15/24
--- NOTE | 2024-10-21 15:06 | WC ---
PHOTO 10/15/24 RIGHT BUTTOCKS
== END 2024-10-18 23:59 | disposition home or self-care (01) ==
LOC: WC 14:48
PROVIDERS: Visit Provider Surgery Plastic and Reconstructive Surgery
DX: L89.314 Pressure ulcer of right buttock, stage 4 (principal); L98.492 Non-pressure chronic ulcer of skin of other sites with fat layer exposed; I48.91 Unspecified atrial fibrillation; E11.9 Type 2 diabetes mellitus without complications; Z79.4 Long term (current) use of insulin; R53.81 Other malaise; F17.210 Nicotine dependence, cigarettes, uncomplicated; Z79.01 Long term (current) use of anticoagulants; Z79.84 Long term (current) use of oral hypoglycemic drugs; Z79.899 Other long term (current) drug therapy; Z87.438 Personal history of other diseases of male genital organs
CPT/HCPCS: 11042

== ENCOUNTER 2024-11-26 14:46 | Outpatient (RCR) | payer MEDICAID, SELFPAY ==
[2024-10-19 00:47] VITALS: BP 71/48; PULSE 84; RESP 16; TEMP 35.3; BMI 30.6
[2024-11-26 14:48] VITALS: BP 169/92; PULSE 89; RESP 18; BMI 30.6
--- NOTE | 2024-11-26 16:36 | PN.PCM_ITS ---
History of Present Illness Date of Service: 11/26/24 Chief Complaint: Right Buttock Ulcer History of Wound: Sreekanth Millan is a 49-year-old type II diabetic (often high A1c, sometimes between 13 and 14), as well as atrial fibrillation on 5 mg of Eliquis twice daily, who presents today as a transport from a [facility] where he is being cared for because of a nonhealing right buttock ulcer. 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 His scrotal wound/penile wound have improved greatly and with wet to dry dressings, but he reports that his pressure sore from being immobilized from critical illness is persistent. They have been doing a wound VAC on this pressure sore and he thinks that stool is getting in and around the wound VAC unfortunately. He had a catheter but discontinued it himself once he got home form the [facility]. He states that he is doing well at home. He has assistance with his wound care. He is a daily cigarette smoker. Today he denies fever, chills, nausea and vomiting. Progress of Wound: He still has drainage from his penis (I did not visualize today). He states that he is not able to pack it any longer but it still leaks clear fluid. He has not seen urology about this issue (which I suspect he has a fistula). He states that he is [facility] in [place] on 12/09/24. Unsure what happened that he did not go to the appointment in October. He has not been here at the wound center since the end of September. His right gluteal/buttock ulcer is smaller. There is thickened callus present surrounding the ulcer. Objective Data Objective Data Vital Signs: Vital Signs Temp Pulse Resp BP O2 Del Method 95.6 F L 89 18 169/92 H Room Air 10/19/24 00:47 11/26/24 14:48 11/26/24 14:48 11/26/24 14:48 11/26/24 14:48 Oxygen Delivery Method Room Air Weight: 238 lb 11.202 oz Body Mass Index (BMI) 30.6 Charges/Coding Procedures Integumentary 111xxx-113xx: [id number] Janny subq tissue 20 sq cm/< Debridement Note Debridement Note Wound debrided: #1 gluteal ulcer Laterality: Right Type of Debridement: Excisional debridement Anesthesia Used: 5% Lidocaine Gel Depth: Down to and including healthy tissue and in the subcutaneous layer Percentage of wound debrided: 100 Instrument Used: 5mm curette Tissue Removed: Non viable tissue and slough Severity: Fat Layer Exposed Amount of bleeding with debridement: Mild Bleeding Controlled with: Pressure and Compression and gauze Patient tolerated procedure: Patient tolerated procedure well Post-Debridement Measurements and Additional Note: Post-Debridement Measurements/Treatment - Nurse 1 - General Ulcer Assessment Start: 11/26/24 14:48 Freq: Status: Active Protocol: EMMANUEL Activity Type Activity Date Activity User E-sign Co-sign Detail Recorded Client Recorded Date Recorded By Document 11/26/24 14:48 KW [id number] 11/26/24 15:00 KW 11/26/24 14:48 WC - Today's Visit Information Type of service Follow-up Visit (Physician/ACID BATH MIXER ) Arrival Mode Wheelchair Patient Identification Verified (Name & Yes ) Height and Weight Body Mass Index (BMI) 30.6 BMI Classification Obese Vital Signs Pulse Rate (60-100) 89 Pulse Location Monitor Respiratory Rate (12-18) 18 Respiratory rate source Monitor Oxygen Delivery Method Room Air Blood Pressure (90/60-120/80) 169/92 H Blood Pressure Mean (mm Hg) 117 Source Monitor Position Sitting Blood Pressure Location Left Arm History Since Last Visit- (Skip if this is Patient's initial visit) Have you changed medications since your No last visit? Any new allergies or adverse reactions No Had a fall/change in ADL's that may No increase risk of falls Signs or symptoms of abuse and/or No neglect since last visit Have you been in the hospital since your No last visit? Has dressing in place as prescribed Yes Has compression in place as prescribed N/A Has offloadiing in place as prescribed N/A Experienced any changes in pain level or No management Left Footwear Regular Shoe Right Footwear Regular Shoe Pain Scale: 0-10 Numeric Is Patient Pain Free? Yes - Nurse 1 - General Ulcer Measurement Start: 11/26/24 14:48 Freq: Status: Active Protocol: Activity Type Activity Date Activity User E-sign Co-sign Detail Recorded Client Recorded Date Recorded By Document 11/26/24 14:48 [email or web address] [id number] 11/26/24 15:00 KW 11/26/24 14:48 Wound Center Nurse 1 #3 PUBIC AREA -Combined with other wound No -Current Size (cm) - Length 0.1 -Current Size (cm) - Width 0.1 -Current Size (cm) - Depth 0.1 -Total Square Cm 0.01 -Date of Last Picture (Recall this 11/26/24 field) -Photo Taken Yes -Exudate Amt Medium -Exudate Type Serosanguineous -Wound Margin Distinct, Outline Attached -Granulation Amt Large (67-100%) -Granulation Quality Hyper- granulation,Red -Texture (Miranda-wound Skin Appearance) Assessed -Moisture (Miranda-wound Skin Appearance) Assessed -Color (Miranda-wound Skin Appearance) Assessed -Temperature (Miranda-wound Skin No Abnormality Appearance) (Pt Warm) -Tenderness on Palpation (Miranda-wound No Skin Appearance) -Ulcer Cleansing Soap and Water -Foul Odor after Cleansing No -Anesthetic Used 5% Lidocaine Gel #1 R Buttocks -Combined with other wound No -Current Size (cm) - Length 0.3 -Current Size (cm) - Width 0.5 -Current Size (cm) - Depth 0.1 -Total Square Cm 0.15 -Date of Last Picture (Recall this 11/26/24 field) -Photo Taken Yes -Epithelialization Medium 34-66% -Tunneling No -Undermining/Tunneling No -Circular Undermining No -Exudate Amt Medium -Exudate Type Serosanguineous -Wound Margin Thickened -Granulation Amt Medium (34-66%) -Granulation Quality Calio -Slough/Fibrin Yes -Necrosis Amt Medium (34-66%) -Necrotic Tissue Type Adherent Slough -Texture (Miranda-wound Skin Appearance) Assessed,Callus -Moisture (Miranda-wound Skin Appearance) Assessed -Color (Miranda-wound Skin Appearance) Assessed -Temperature (Miranda-wound Skin No Abnormality Appearance) (Pt Warm) -Tenderness on Palpation (Miranda-wound No Skin Appearance) -Ulcer Cleansing Soap and Water -Foul Odor after Cleansing No -Anesthetic Used 5% Lidocaine Gel WC - Nurse 2 - General Ulcer CM Notes Start: 11/26/24 14:48 Freq: Status: Active Protocol: Activity Type Activity Date Activity User E-sign Co-sign Detail Recorded Client Recorded Date Recorded By Document 11/26/24 16:01 [id number] 11/26/24 16:07 11/26/24 16:01 Wound Center Nurse 2 -Time 16:01 -Correct Patient Yes -Correct Side, Site, Position Yes -Correct Procedure Yes -Procedure Performed Yes -Type of Procedure Debridement -Clinical Debridement Subcutaneous -Tissue Removed Subcutaneous -Tunneling No -Undermining/Tunneling No -Circular Undermining No -Wound/Ulcer Outcome Not Healed -Ulcer Cleansing Rinsed/ Irrigated with Saline -Foul Odor after Cleansing No -Bioengineered Tissue No -Bleeding Controlled with Pressure -Treatment Response Procedure Tolerated Well -Debridement - Subq, 1st 20sq cm Yes Pain Scale: 0-10 Numeric Is Patient Pain Free? Yes - Nurse 3 - General Ulcer D/C NN Start: 11/26/24 14:48 Freq: Status: Active Protocol: Activity Type Activity Date Activity User E-sign Co-sign Detail Recorded Client Recorded Date Recorded By Document 11/26/24 16:10 [id number] 11/26/24 16:15 11/26/24 16:10 Wound Care Center Nurse 3 #3 PUBIC AREA -Ulcer Cleansing Rinsed/ Irrigated with Saline -Primary Dressing Covered/Secured with Dry Gauze, Secured with Tape #1 R Buttocks -Ulcer Cleansing Rinsed/ Irrigated with Saline -Primary Dressing Applied Aquacel AG 4x4 -Other Dressing Aqaucel AG -Primary Dressing Covered/Secured with Dry Gauze, Secured with Tape -Other Covering ABD -Aquacel AG 4x4 1 Treatment Response Procedure Tolerated Well Pain Scale: 0-10 Numeric Is Patient Pain Free? Yes - Visit Discharge Discharge Condition Stable Ambulatory Status Ambulatory, Wheelchair Transportation Private Auto Assessment/Plan Assessment/Plan (1) Type 2 diabetes mellitus: CODE(S): E11.9 - Type 2 diabetes mellitus without complications (2) Debility: CODE(S): R53.81 - Other malaise (3) History of Jean's gangrene: CODE(S): Z87.438 - Personal history of other diseases of male genital organs (4) Stage 3 skin ulcer with fat layer exposed: CODE(S): L98.492 - Non-pressure chronic ulcer of skin of other sites with fat layer exposed (5) Decubitus ulcer of right buttock, stage 3: CODE(S): L89.313 - Pressure ulcer of right buttock, stage 3 PLAN: Plan Patient evaluated at the wound healing center today. Wound care - For his right gluteal/buttock ulcer place moistened Aquacel-Ag onto the ulcer, cover with gauze or an ABD daily. To the ulcer on pubic area proximal to penis,he is covering it with a maxi pad to collect the drainage. Wash both of the these areas with soap and water at the time of the daily dressing changes. He is scheduled to see a urologist on 12/09/24 at [place]. Instructed him to show them the ulcer proximal to his penis. Concerned there may be a fistula. Follow up two weeks. Phone or come in sooner if develop any concerns.
--- NOTE | 2024-12-02 09:56 | WC ---
PHOTO 11/26/24 RIGHT BUTTOCKS
== END 2024-12-19 23:59 | disposition home or self-care (01) ==
LOC: WC 14:46
PROVIDERS: Visit Provider Surgery Plastic and Reconstructive Surgery
DX: L89.313 Pressure ulcer of right buttock, stage 3 (principal); E11.9 Type 2 diabetes mellitus without complications; Z79.4 Long term (current) use of insulin; R53.81 Other malaise; F17.210 Nicotine dependence, cigarettes, uncomplicated; Z79.01 Long term (current) use of anticoagulants; Z79.84 Long term (current) use of oral hypoglycemic drugs; Z79.899 Other long term (current) drug therapy; Z87.438 Personal history of other diseases of male genital organs
CPT/HCPCS: 11042

== ENCOUNTER → 2025-08-27 | Outpatient (CLI) | payer MEDICAID, SELFPAY ==
--- NOTE | 2025-08-27 09:44 | VDUE_ITS ---
Reason For Study Reason For Study: CKD 3 Right Arm Left Arm Cephalic Vein at distal forearm measures 0.21 x 0.22 Cephalic Vein at distal forearm measures 0.26 x 0.29 cm. cm. Cephalic Vein at mid forearm measures 0.24 x 0.26 cm. Cephalic Vein at mid forearm measures 0.30 x 0.31 cm. Cephalic Vein proximal forearm measures 0.28 x 0.28 Cephalic Vein proximal forearm measures 0.31 x 0.34 cm. cm. Cephalic Vein distal upper arm measures 0.27 x 0.28 Cephalic Vein distal upper arm measures 0.29 x 0.33 cm. cm. Cephalic Vein at mid upper arm measures 0.21 x 0.21 Cephalic Vein at mid upper arm measures 0.23 x 0.25 cm. cm. Cephalic Vein at proximal upper arm measures 0.37 x Cephalic Vein at proximal upper arm measures 0.32 x 0.41 cm. 030 cm. Proximal Basilic vein measures 0.43 x 0.43 cm. Proximal Basilic vein measures 0.58 x 0.59 cm. Mid Basilic vein measures 0.41 x 0.41 cm. Mid Basilic vein measures 0.56 x 0.57 cm. Distal Basilic vein measures 0.40 x 0.40 cm. Distal Basilic vein measures 0.37 x 0.38 cm. Brachial artery measures 0.44 x 0.42 cm with a Brachial artery measures 0.44 x 0.45 cm with a velocity of 109.4 cm/sec. velocity of 83.4 cm/sec. Radial artery meausres 0.18 x 0.18 cm with a velocity Radial artery meausres 0.23 x 0.25 cm with a velocity of 82.2 cm/sec. of 79.4 cm/sec. Procedure This was a bilateral upper extremity venous doppler examination. Exam performed in department. VL/Dialysis Vein Map PRE-OP BILAT Interpretation Summary Bilateral upper extremity arteries patent with normal waveforms and measurement s above. Bilateral upper extremity veins patent with measurements above. Ordering Physician: Dagmar Tan Referring Physician: Yany Adam Performed By: Nathalia Calvo RVT and Student ???
== END | disposition home or self-care (01) ==
LOC: CVS 09:42
PROVIDERS: PCP Registered Nurse; Referring Provider Internal Medicine Nephrology; Visit Provider Internal Medicine Nephrology
DX: N18.30 Chronic kidney disease, stage 3 unspecified (principal)
CPT/HCPCS: 93985

== ENCOUNTER 2025-09-07 19:51 | Inpatient (IN) | payer MEDICAID, SELFPAY ==
[2025-09-07] VITALS (9 sets, daily range): BP systolic 180–202; BP diastolic 99–166; PULSE 96–107; RESP 14–18; TEMP 37; O2SAT 96–98; BMI 39.1
--- NOTE | 2025-09-07 21:12 | EKG12_ITS ---
Test Reason : DYSRHYTHMIA Blood Pressure : */* mmHG Vent. Rate : 97 BPM Atrial Rate : 97 BPM P-R Int : 188 ms QRS Dur : 176 ms QT Int : 416 ms P-R-T Axes : 59 46 38 degrees QTcB Int : 528 ms Normal sinus rhythm Right bundle branch block Abnormal ECG Confirmed by Julio Andrade ([id number]), news copy editor HOMAR GRIJALVA ([id number]) on 09/08/2025 11:14:22 AM Referred By: Confirmed By: Julio Andrade
--- NOTE | 2025-09-07 21:12 | RAD_ITS ---
PROCEDURE: CHEST PA AND LATERAL 09/07/2025 REASON FOR EXAM: WEAKNESS TECHNIQUE: Procedure Code: RADCXR Modality: DX Procedure: CHEST PA AND LATERAL FINDINGS: The heart is enlarged. The lungs are clear. Right chest infusion port with tip terminating in the lower superior vena cava. No acute osseous abnormalities. RAD/Chest PA and Lateral IMPRESSION: NO ACUTE FINDINGS. Reading Location: [id number]
--- NOTE | 2025-09-07 21:13 | EX.ED.DYSGE1 ---
HPI History of Present Illness Chief Complaint: Weakness Informant: patient Onset/Context/Timing Onset: Days Context: Gradual Onset Timing: Continuous Current Severity: Moderate Maximum Severity: Moderate Narrative Narrative: 50-year-old male history of diabetes, A-fib on Eliquis, chronic kidney disease and anemia. Typically has dialysis Sunday missed dialysis today and all last week his last dialysis was Sunday more than a week ago. Basically just feels weak all over. Mild nausea no vomiting no diarrhea or fever. No chest pain or headache. No abdominal pain. He has been on dialysis less than 1 year. Prior similar symptoms: Yes Recent Illness/Hospitalization: No [facility] Medical History Anemia, unspecified Acute kidney failure, unspecified Obstructive and reflux uropathy, unspecified Polyneuropathy, unspecified Jean gangrene Debility Type 2 diabetes mellitus Decubitus ulcer of right buttock, stage 4 Home Medications ?Medication ?Instructions ?Recorded ?Last Taken ?Type apixaban 5 mg tablet (Eliquis) 5 mg PO BID 06/05/24 Unknown History bumetanide 1 mg tablet 1 mg PO BID 06/05/24 Unknown History gabapentin 300 mg capsule 300 mg PO DAILY 06/05/24 Unknown History glimepiride 4 mg tablet 8 mg PO DAILY 06/05/24 Unknown History insulin glargine 100 unit/mL (3 30 unit subcut QHS 06/05/24 Unknown History mL) subcutaneous pen (Lantus Solostar U-100 Insulin) insulin lispro 100 unit/mL 1 sliding scale dose subcut TID DM 06/05/24 Unknown History subcutaneous pen (Humalog KwikPen (U-100) Insulin) lidocaine 4 % topical patch 1 patch topical Q24H 06/05/24 Unknown History (Lidocore) metoprolol succinate 100 mg 100 mg PO BID 06/05/24 Unknown History tablet,extended release 24 hr omeprazole 40 mg capsule,delayed 40 mg PO BID 06/05/24 Unknown History release rosuvastatin 10 mg tablet 10 mg PO DAILY 06/05/24 Unknown History acetaminophen 325 mg tablet 650 mg PO Q8H PRN pain 06/18/24 Unknown History cholecalciferol (vitamin D3) 1,250 1,250 mcg PO QWEEK 06/18/24 Unknown History mcg (50,000 unit) capsule ferrous sulfate 325 mg (65 mg 325 mg PO DAILY 06/18/24 Unknown History iron) tablet (FeroSul) meclizine 25 mg tablet (Dramamine 25 mg PO Q8H PRN dizziness 06/18/24 Unknown History Less Drowsy) ondansetron HCl 4 mg tablet 4 mg PO Q6H PRN nausea and vomiting 06/18/24 Unknown History oxycodone 5 mg tablet 5 mg PO Q6H PRN pain 06/18/24 Unknown History scopolamine base 1 mg over 3 days 1 patch topical Q3D 06/18/24 Unknown History transdermal patch simethicone 180 mg capsule 180 mg PO BID 06/18/24 Unknown History (Anti-Gas Ultra Strength) sodium hypochlorite 0.25 % 1 applic topical BID 06/18/24 Unknown History solution (Dakin's Solution) Allergy/AdvReac Type Severity Reaction Status Date / Time ampicillin Allergy Unknown PT UNABLE Verified 09/07/25 19:54 TO RESPOND-NEEDS F/U Penicillins Allergy Unknown PT UNABLE Verified 09/07/25 19:54 TO RESPOND-NEEDS F/U lisinopril AdvReac Mild nausea Verified 09/07/25 19:54 Family History no significant family his Social History Smoking Status: Current some day smoker tobacco type: cigarettes ROS ROS ED ROS Narrative Generalized weakness. Constitutional Constitutional ED: Denies chills or fever(s) Eyes Eyes: Denies blurry vision ENT ENT ED: Denies ear pain Cardiovascular Cardiovascular: Denies chest pain Respiratory/Chest Respiratory/Chest: Denies cough or dyspnea Gastrointestinal Gastrointestinal: Denies abdominal pain, constipation, diarrhea, melena, nausea or vomiting Genitourinary Genitourinary ED: Denies dysuria or hematuria Musculoskeletal Musculoskeletal: Denies arthralgias or back pain Integumentary Denies abscess Neurologic Neurologic: Denies headache(s) Psychiatric Psychiatric: Denies anxiety or depression Endocrine Endocrinology: Denies cold intolerance Hematologic/Lymphatic Hematologic/Lymphatic: Reports none Allergic/Immunologic Allergic/Immunologic ED: Denies mouth swelling, tongue swelling or urticaria EXAM Physical Exam Narrative Exam Narrative: 50-year-old male sitting upright in bed vital signs stable initial blood pressure is elevated 186/166 to be rechecked. He is in no acute distress. Pulse ox 96% on room air no signs hypoxia. H EENT exam pupils round react light. Moist mutes membranes. Neck nontender no JVD. Lungs clear to auscultation bilaterally. Heart regular rhythm rate about 100 no murmur. Chest wall ribs nontender. He has a Vas-Cath right chest wall is clean and dry. Abdomen soft nontender. Moving all 4 extremities. Trace edema both lower extremities which is chronic. Normal flitch hanger strength. Normal dorsi plantarflexion. Back nontender. Neurologically he is awake alert. He is answering questions following commands. Const Vital Signs: 09/07/25 19:52 09/07/25 20:52 09/07/25 20:52 Temperature 98.6 F Temperature Source Oral Pulse Rate 100 96 Respiratory Rate 16 Respiratory Effort Normal Non-Labored Respiratory Pattern Normal Blood Pressure 186/166 H 196/102 H Blood Pressure Mean 172 133 Pulse Ox 96 Oxygen Delivery Method Room Air 09/07/25 21:00 09/07/25 21:13 09/07/25 22:15 Temperature Temperature Source Pulse Rate 97 Respiratory Rate 15 Respiratory Effort Respiratory Pattern Blood Pressure 196/102 H 180/130 H 202/112 H Blood Pressure Mean 133 146 142 Pulse Ox 98 Oxygen Delivery Method MDM MDM MDM Narrative Medical decision making narrative: 50-year-old dialysis patient also history of diabetes and A-fib on Eliquis presents with generalized weakness and has missed his dialysis more than a week he has missed the last 4 dialysis appointments including today. I suspect he is more uremic may or may not be hyperkalemic because he still does make urine. Screening labs and EKG and chest x-ray will be obtained. Repeat exam unchanged. I will start the patient on ED hyperkalemia treatment. I will speak to the hospitalist about admission. History & Record Review Discussion w/independent historian: Family Additional record(s) reviewed:: Prior inpatient record, Prior outpatient record, Prior ED visit and Prior labs Lab Data Attestation: I reviewed the patient's lab results. Lab results narrative: CBC shows a white 11.9 H&H 8.4 and 27.4 consistent with chronic anemia. Platelets 241. Electrolytes show a potassium of 6.7. Anion gap 17. BUN and creatinine of 60 and 8.7 consistent with his end-stage renal disease not been dialyzed for over a week. Glucose 348. Labs: Laboratory Results - last 24 hr 09/07/25 21:15 WBC 11.9 H RBC 3.24 L Hgb 8.4 L Hct 27.4 L MCV 84.6 MCH 25.9 L MCHC 30.7 L RDW Std Deviation 56.9 H RDW Coeff of Adolfo 18.6 H Plt Count 241 MPV 10.5 Immature Gran % (Auto) 1.200 H Neut % (Auto) 72.3 H Lymph % (Auto) 13.6 L [place] % (Auto) 7.9 Eos % (Auto) 4.2 Baso % (Auto) 0.8 Absolute Neuts (auto) 8.6 H Absolute Lymphs (auto) 1.62 Nucleated RBC % 0 Sodium 133 Potassium 6.7 H* Chloride 97 L Carbon Dioxide 18.0 L Anion Gap 17 H BUN 60 H Creatinine 8.79 H* Estim Creat Clear Calc 15.21 L Est GFR (MDRD) Non-Af 7 L BUN/Creatinine Ratio 6.8 L Glucose 348 H Calcium 8.6 Radiography Chest X-Ray - ED: Read by ED Physician, Read by Radiologist, Heart, Lungs, Mediastinum, Bony Structures, No Acute Disease and Chronic Changes Diagnostic Testing: Clinical Impression(s) from Imaging Studies Chest X-Ray 09/07/25 21:12 IMPRESSION: NO ACUTE FINDINGS. Reading Location: [address] Chest x-ray, 2 views, AP and lateral, interpreted by myself and the radiologist shows no acute abnormality. Normal cardiac silhouette. Normal lung nguyen. Chronic changes. Right-sided vas cath. Rhythm Strip Rhythm Strip: Sinus Rhythm Rate: 97 Ectopy: None EKG Initial EKG: Attestation: I personally reviewed and interpreted this EKG as follows: Interpretation: Sinus Rhythm and No Acute Injury Pattern Comments: Normal sinus rhythm rate 97 right bundle branch block. No acute signs of [place] or ischemia. Critical Care Time Critical Care Time: Yes Critical care time (excluding procedures): 30-74 minutes, Including time spent:, Discussing w/Patient &/or Family/Target Setter, Discussing w/Consultants, Arranging Admission or Transfer, Performing Direct Patient Care at Bedside and - (35 minutes.) Discharge Plan Triage Chief Complaint: Weakness ED Provider: Daniel Heller Dx/Rx/DC Orders Clinical Impression: Acute hyperkalemia, End stage renal disease on dialysis, Chronic anemia, A-fib, Diabetes Prescriptions: No Action Dakin's Solution 0.25 % solution 1 applic topical BID Rx Instructions: APPLY TO SCROTUM ferrous sulfate [FeroSul] 325 mg (65 mg iron) tablet 325 mg PO DAILY meclizine [Dramamine Less Drowsy] 25 mg tablet 25 mg PO Q8H PRN (Reason: dizziness) oxycodone 5 mg tablet 5 mg PO Q6H PRN (Reason: pain) scopolamine base 1 mg over 3 days patch 3 day 1 patch topical Q3D simethicone [Anti-Gas Ultra Strength] 180 mg capsule 180 mg PO BID Rx Instructions: GIVE 1 CAPSULE TWICE DAILY FOR 10 DAYS STARTING 06/17/24 FOR HYPERTENSION. acetaminophen 325 mg tablet 650 mg PO Q8H PRN (Reason: pain) cholecalciferol (vitamin D3) 1,250 mcg (50,000 unit) capsule 1,250 mcg PO QWEEK Rx Instructions: UNKNOWN WHAT DAY OF WEEK ondansetron HCl 4 mg tablet 4 mg PO Q6H PRN (Reason: nausea and vomiting) metoprolol succinate 100 mg tablet extended release 24 hr 100 mg PO BID omeprazole 40 mg capsule,delayed release(DR/EC) 40 mg PO BID glimepiride 4 mg tablet 8 mg PO DAILY gabapentin 300 mg capsule 300 mg PO DAILY bumetanide 1 mg tablet 1 mg PO BID insulin lispro [Humalog KwikPen Insulin] 100 unit/mL insulin pen 1 sliding scale dose subcut TID Protocol: 6. Sliding Scale Insulin Custom Condition: mg/dl range Dose/Route: Number of Units Condition: 151-200 Dose/Route: 2 Condition: 201-250 Dose/Route: 4 Condition: 251-300 Dose/Route: 6 Condition: 301-350 Dose/Route: 8 Condition: 351-400 Dose/Route: 10 Condition: 401+ Dose/Route: CONTACT MD Protocol Text: Custom Sliding Scale rosuvastatin 10 mg tablet 10 mg PO DAILY insulin glargine [Lantus Solostar U-100 Insulin] 100 unit/mL (3 mL) insulin pen 30 unit subcut QHS Eliquis 5 mg tablet 5 mg PO BID lidocaine [Lidocore] 4 % adhesive patch,medicated 1 patch topical Q24H Rx Instructions: may leave on for up to 12 hrs Primary Care Provider: Phoebe Adam NP Referrals: Phoebe Adam IT COMMUNICATIONS MANAGER, IT COMMUNICATIONS MANAGER-C [Primary Care Provider, Medical] Print Language: Cambodian
[2025-09-07 21:39] LABS: Hematocrit 27.4 % (40-54); Hemoglobin 8.4 g/dL (13.0-16.5); Immature Granulocytes Count 0.140 X10^3/uL (0.0-0.0); Mean Corp Hgb Conc 30.7 g/dL (32-36); Mean Corpuscular Volume 84.6 fL (80-94); Mean Platelet Vol. 10.5 fl (6.2-12.0); NRBC Flagged by Analyzer 0 % (0-5); Platelet Count 241 K/mm3 (150-450); RBC Distribution Width CV 18.6 % (11.6-14.6); RBC Distribution Width SD 56.9 fl (35.1-43.9); Red Blood Count 3.24 M/mm3 (4.6-6.2); White Blood Count 11.9 K/mm3 (4.4-11.0)
--- OUTSIDE RECORDS SUMMARY | 2025-09-07 21:46 | XMS RPT_ITS | CCD ---
Author Organization [facility] Inform ion Partnership [facility] Care Team Providers Care Internal Grinder Tender Name Role Phone Artie Jackson Primary Care Provider MANUEL SOILS, DR ALVA Primary Care Physician Manuel SOLIS, Artie Valencia Primary Care Provider Manuel SOLIS, Artie Valencia Primary Care Provider Manuel SOLIS, Artie Valencia Primary Care Provider MANUEL SOLIS, DR ALVA Primary Care Physician JAIR PIZARRO-PRODUCT ENGINEER, [facility] Primary Care Physician Ledy Son Unavailable Unavailable CIARA VIGIL MD Consulting Unavailable TAMIKA SOLIS, CARMELO León Attending Unavailable JAIR GUTIÉRREZ, [facility] Primary Care Unavailab trish RICO MD, DR ILEANA Lara Admitting FRANCESCA Atkins MD Consulting Unavailable HUBER BROWNE MD, DR SON ALVARENGA Consulting Unavaila manav GUTIÉRREZ, [facility] Primary Care Unavailab trish ACUNA MD, MARTÍNEZ Attending Unavailable LINDA SOLIS, JOAN Consulting Unavailable WILLA RODARTE MD Consulting Unavailab le JAIR PIZARRO-PRODUCT ENGINEER, [facility] Primary Care Unavailab trish MALONE DO, MATHEW Attending Unavailable JAIR PIZARRO-PRODUCT ENGINEER, [facility] Primary Care Unavailab trish HOGAN DO, JIMENA Attending Unavailable JAIR PZIARRO-ABEBA, [facility] Primary Care Unavailab trish GALAN DO, SATNAM Rios Attending Unavailable SHELTON PIZARRO-BRAVO BAIRD Admitting Unavaila manav GUTIÉRREZ, [facility] Primary Care Unavailab trish ALELN DO, DR JOHNSON Referring Unavailable KALEY POSEY, DR JOHNSON Attending Unavailable SARAH SOLIS FACP, CATHERINE León Consulting Unavail able JAIR GALLEGOPRODUCT ENGINEER, [facility] Primary Care Unavailab Kemi SOLIS, DR VALLE Consulting Unavailab trish HOGAN DO, JIMENA Attending Unavailable SHELTON AUTOMATION TECH-QUAHOGGER, BRAVO Ornelas Consulting Unavailvernon ADAM APRN-PRODUCT ENGINEER, [facility] Primary Care Unavailab trish JOHNSON MD, DR VALLE Attending Unavailab trish JOHNSON MD, DR VALLE Admitting Unavailab trish CONTI MD, VIANCA Consulting Unavailable DEON SOLIS, POLY Consulting Unavailable CIARA VIGIL MD Consulting Unavailable RUBY SOLIS, DR LI Consulting Unavailable DAMARI FATIMA MD Consulting Unavailable HUBER BROWNE MD, DR SON ALVARENGA Consulting Unavaila DAYLIN Harrell MD Consulting Unavailable LINDA SOLIS, JOAN Admitting Unavailable JAIR GUTIÉRREZ, [facility] Care Unavailab Dougie SOLIS, VIANCA Attending Unavailable TUYET AGUAYO MD Consulting Unavailable LINDA SOLIS, JOAN Consulting Unavailable KAYLEEN BERNAL MD Consulting Unavailable LIDA MUNOZ MD Consulting Unavailable DAMARI FATIMA MD Consulting Unavailable TU JHA MD Consulting Unavailable SHANKAR POSEY, CHELA Rhodes Consulting Unavailvernon PARNELL MD, FRANCESCA Huerta Consulting Unavailable KAIN FERNANDES MD, TRUDI Consulting Unavailable MARJAN ELLIS MD Consulting Unavailable HUBER BROWNE MD, DR SON ALVARENGA Consulting Unavaila manav WIGGINS MD, POLY Consulting Unavailable BERNIE HERNÁNDEZ MD Consulting Unavailable LAYTON EUBANKS DO Consulting Unavailmiriam WILLIAM MD, VIRIDIANA Consulting Unavailable RUBY SOLIS, DR LI Consulting Unavailable MIHIR CHOWDHURY MD Consulting Unavailable KAREN SOLIS, BOB Harkins Consulting Unavailable CIARA VIGIL MD Consulting Unavailable JAIR GUTIÉRREZ, PHOEBE Consulting Unavailab Elsy SLOIS, DR ORTEGA Consulting Unavailable Pao SOLIS, Garrick Harris Unavailable [phone] Jose Morrison MD Unavailable [phone] Manpreet ADAMS, Maria Elena Ornelas Unavailable Unavailable JAIR PIZARRO-PRODUCT ENGINEER, [facility] Care Unavailab trish WILLIAM MD, VIRIDIANA Admitting Unavailable ORALIA SAMUELS MD Attending Unavailable RITIKA CURTIS Consulting UnavailGABRIELA Craig MD Consulting Unavailable KAREN SOLIS, BOB Harkins Consulting Unavailable LUIS DANIEL SOLIS, CORAL Consulting Unavailable JR SOLIS, TU Cooper Consulting Unavailable RHONDA SOLIS, MARJAN Consulting Unavailable STEWART SOLIS, VIRIDIANA Consulting Unavailable JAIR AUTOMATION TECH-PRODUCT ENGINEER, [facility] Primary Care Unavailab JIMENA Fraire DO Attending Unavailable [facility] Care Unavailable Arun PRODUCT ENGINEER, Janel E Attending Unavailabl e Arun PRODUCT ENGINEER, Janel E Referring Unavailabl e Siska, Milvia Consulting Unavailable Mary Alice Evangelista Attending Unavailable Jair PRODUCT ENGINEER, [facility] Care Unavailable Jair PRODUCT ENGINEER, Vaughn Primary Care Unavailable Madan Charles Attending Unavailable Galan, Satnam Referring Unavailable Galan, Satnam Primary Care Unavailable Sisjaqui, Milvia Attending Unavailable Galan, Satnam Referring Unavailable Galan, Satnam Primary Care Unavailable Sisjaqui, Milvia Attending Unavailable Galan, Satnam Referring Unavailable Siska, Milvia Attending Unavailable Galan, Satnam Primary Care Unavailable Galan, Satnam Primary Care Unavailable Galan, Satnam Referring Unavailable Milvia Allen Attending Unavailable Barby Webster Attending Unavailable Barby Webster Referring Unavailable Jair PRODUCT ENGINEER, Vaughn Primary Care Unavailable [facility] Satnam Primary Care Unavailable Barby Webster Attending Unavailable Arun PRODUCT ENGINEER, Janel E Referring Unavailabl e Galan, Satnam Primary Care Unavailable Arun PRODUCT ENGINEER, Janel Rios Attending Unavailabl e Siska, Milvia Consulting Unavailable Arun PRODUCT ENGINEER, Janel E Referring Unavailabl e Galan, Satnam Primary Care Unavailable Arun PRODUCT ENGINEER, Janel E Attending Unavailabl e Siska, Milvia Consulting Unavailable GALAN, SATNAM Referring Unavailable GARRICK VELASQUEZ Attending Unavailable MANUEL, ARTIE Primary Care Unavailable PHOEBE ADAM Attending Unavailable MANUEL, ARTIE Primary Care Unavailable SHREYA OLIVERA Attending Unavailable MANUEL, ARTIE Primary Care Unavailable MANUEL, ARTIE Primary Care Unavailable JSOE MORRISON Admitting Unavailable JOSE MORRISON Attending Unavailable GARRICK VELASQUEZ Attending Unavailable GARRICK VELASQUEZ Referring Unavailable MANUEL, ARTIE Primary Care Unavailable JOSE MORRISON Attending Unavailable PHOEBE ADAM Referring Unavailable MANUEL, ARTIE Primary Care Unavailable Allergies Allergy Classification Reported Allergen(s) Allergy Type Date of Onset Reaction(s) Facility (20 sources) Ampicillin; Translations: [ampicillin] Drug Allergy 08-27-20 [facility] [place] Comment on above: Patient has tolerate d Zosyn (4 sources) Penicillins Propensity to adverse reactions to drug 08-27-20 [facility] [place] (6 sources) Penicillin; Translations: [penicillins] Drug Allergy [facility] (20 sources) Penicillins Drug Intolerance 08-27-20 17 [facility] (20 sources) dulaglutide Drug Allergy 10-03-20 23 Nausea And Vomiting [facility] Work Phone: (6 sources) Penicillin; Translations: [penicillins] Drug Allergy Unknown [facility] Comment on above: Patient has tolerate d Zosyn has tolerated admini stration of IV Zosyn during hospitilization 04/17/24 (1 source) Ampicillin Drug Allergy 06-18-20 [facility] (1 source) Penicillins Drug allergy (disorder) 06-18-20 [facility] Medications Current Medications Medication Drug Class(es) Dates Sig (Normalized) Sig (Original) acetaminophen 500 mg oral tablet (20 sources) Start: 02-17-2025 End: 07-09-2025 take 1 tablet by mouth every six hours as needed for pain and pain acetaminophen (Tylenol) 500 MG tablet TAKE 1 TABLET (500 MG) BY MOUTH EVERY 6 HOURS NEEDED FOR MILD PAIN (1-3) OR MODERATE PAIN (4-6). 60 tablet 3 07/09/2025 Active Start: 10-27-2024 End: 12-22-2024 take 1 tablet by mouth every six hours as needed for pain acetaminophen (Tylenol) 500 MG tablet TAKE 1 TABLET (500 MG) BY MOUTH EVERY 6 HOURS NEEDED FOR MILD PAIN (1-3) OR MODERATE PAIN (4-6) 60 tablet 12/22/2024 Active Start: 09-22-2024 take 1 tablet by devi th every six hours as needed for pain and pain acetaminophen (Tylenol) 500 MG tablet Take 1 tablet (500 mg) by mouth every 6 hours as needed for mild pain (1-3) or moderate pain (4-6). 60 tablet 09/22/2024 Active Start: 05-06-2024 End: 05-16-2024 Tylenol 8 Hour 650 mg oral t ablet, extended release Dose : 1,300 mg = 2 tab(s), Oral, q8h, PRN as needed for pain, X 10 day(s), # 50 tab(s), 0 Refill(s), 05/16/24 11:29:00 AM EDT, other reason (Rx) Start Date: 05/06/24 Stop Date: 05/16/24 Status: Ordered Start: 09-04-2021 End: 09-04-2021 acetaminophen (TYLENOL) tabl et 650 mg Start: 11-15-2020 End: 11-15-2020 acetaminophen (TYLENOL) tabl et 1,000 mg Start: 05-14-2020 End: 05-14-2020 acetaminophen (TYLENOL) tabl et 1,000 mg Start: 05-02-2019 Tylenol 325 mg oral capsule Dose : 650 mg =, Oral, q4h, PRN Pain, scale 1-3, 0 Refill(s) Start Date: 05/02/19 Status: Ordered alogliptin 25 mg oral tablet (7 sources) Start: 06-03-2020 Alogliptin 25 mg oral tablet 0 Refill(s) Start Date: 09/19/20 Status: Ordered Start: 12-15-2019 take 1 tablet by devi th once daily alogliptin (NESINA) 25 MG TABS tablet Take 1 tablet by mouth daily 30 tablet 5 12/15/2019 Active amLODIPine 10 mg oral tablet (7 sources) Dihydropyridine Calcium Channel Huyen Start: 02-15-2025 amLODIPine 10 mg ora l tablet Dose : 10 mg = 1 tab(s), Oral, qDay, # 30 tab(s), 0 Refill(s), Pharmacy: [facility]/pharmacy #[id number], 188, cm, 02/10/25 1:33:00 EDT, Height, kg, 02/15/25 5:52:00 EDT, Dosing Weight Start Date: 02/15/25 Status: Ordered Quantity: 30.0 Unit: tab(s) Repeat number: 1 Start: 03-11-2024 End: 06-16-2025 amLODIPine 10 mg oral tablet Dose : 10 mg = 1 tab(s), Oral, qDay, # 30 tab(s), 0 Refill(s), [id number], 188, cm, 03/08/24 16:58:00 EDT, Height, kg, 03/08/24 16:58:00 EDT, Dosing Weight Start Date: 03/11/24 Status: Ordered apixaban 5 mg oral tablet (20 sources) Factor Xa Inhibitor Start: 10-27-2024 End: 06-16-2025 take 1 tablet by mouth twice daily Eliquis 5 MG tablet Indications: Paroxysmal atrial fibrillation (HCC) Take 1 tablet (5 mg) by mouth 2 times daily. 60 tablet 5 06/16/2025 Active Start: 05-02-2024 End: 10-12-2024 Eliquis 5 mg oral tablet Dos e : 5 mg = 1 tab(s), Oral, BID, # 60 tab(s), 4 Refill(s), Pharmacy: [facility] #[id number], 187, cm, 05/08/24 5:24:00 EDT, Height, 114.4, kg, 05/08/24 5:24:00 EDT, Dosing Weight Start Date: 05/15/24 Stop Date: 10/12/24 Status: Ordered Quantity: 60.0 Unit: tab(s) Repeat number: 5 Blood Glucose Monitoring Suppl (TRUE METRIX METER) OLIVIA (4 sources) Start: 03-12-2020 Blood Glucose Monitoring Suppl (TRUE METRIX METER) OLIVIA Indications: Type 2 diabetes mellitus with diabetic polyneuropathy, without long-term current use of insulin ([facility]) 1 kit by Does not apply route 2 times daily Patient tests blood sugar two times daily and as needed. 1 Device 0 03/12/2020 Active Blood Pressure kit (13 sources) Start: 02-27-2025 Blood Pressure kit Indications: Essential hypertension 1 each daily. 1 kit 02/27/2025 Active calcium acetate 667 mg oral capsule (6 sources) Start: 05-25-2025 take 1 capsule by mouth three times daily at mealtime calcium acetate (Phoslo) 667 MG capsule Take 667 mg by mouth 3 times daily (with meals). 05/25/2025 Active calcium chloride 0.0014 meq/ml / potassium chloride 0.004 meq/ml / sodium chloride 0.103 meq/ml / sodium lactate 0.028 meq/ml injectable solution (2 sources) Start: 11-15-2020 lactated ringe rs infusion Start: 05-14-2020 lactated ringe rs infusion carvedilol 25 mg oral tablet (1 source) alpha-Adrenergic Huyen, beta-Adrenergic Huyen Start: 02-15-2025 Coreg 25 mg oral tablet Dose : 25 mg = 1 tab(s), Oral, BIDM, # 60 tab(s), 0 Refill(s), Pharmacy: [facility]/pharmacy #[id number], 188, cm, 02/10/25 1:33:00 EDT, Height, kg, 02/15/25 5:52:00 EDT, Dosing Weight Start Date: 02/15/25 Status: Ordered Quantity: 60.0 Unit: tab(s) Repeat number: 1 cefdinir 300 mg oral capsule (4 sources) Cephalosporin Antibacterial Start: 06-25-2024 End: 07-09-2024 cefdinir 300 mg oral capsule Dose : 300 mg = 1 cap(s), Oral, q12h, X 14 day(s), # 28 cap(s), 0 Refill(s), 07/09/24 11:25:00 AM EDT, Pharmacy: [facility] #[id number], 188, cm, 06/18/24 18:59:00 EDT, Height, 109.5, kg, 06/18/24 18:59:00 EDT, Dosing Weight Start Date: 06/25/24 Stop Date: 07/09/24 Status: Ordered Start: 05-02-2024 End: 05-28-2024 cefdinir 300 mg oral capsule Dose : 300 mg = 1 cap(s), Oral, BID, X 13 day(s), # 26 cap(s), 0 Refill(s), 05/28/24 11:46:00 AM EDT, Pharmacy: [facility] #[id number], 187, cm, 05/08/24 5:24:00 EDT, Height, 114.4, kg, 05/08/24 5:24:00 EDT, Dosing Weight Start Date: 05/15/24 Stop Date: 05/28/24 Status: Ordered Chlorhexidine (11 sources) Start: 04-16-2025 Chlorhexidine Gluconate (Dressing) misc Use as directed to cover report 30 each 1 04/16/2025 Active ciprofloxacin 500 mg oral tablet (1 source) Quinolone Antimicrobial Start: 07-07-2023 End: 07-17-2023 ciprofloxacin 500 mg oral tablet Dose : 500 mg = 1 tab(s), Oral, Daily, # 10 tab(s), 0 Refill(s), 135.2 Start Date: 07/07/23 Stop Date: 07/17/23 Status: Ordered clindamycin 300 mg oral capsule (1 source) Lincosamide Antibacterial Start: 05-14-2020 End: 05-21-2020 take 1 capsule by mouth twice daily clindamycin (CLEOCIN) 300 MG capsule Take 1 capsule by mouth 2 times daily for 7 days 14 capsule 0 05/14/2020 05/21/2020 Active cloNIDine hydrochloride 0.1 mg oral tablet (1 source) Central alpha-2 Adrenergic Agonist Start: 02-15-2025 End: 03-08-2025 cloNIDine 0.1 mg oral tablet Dose : 0.1 mg = 1 tab(s), Oral, BID, PRN Blood pressure control, take if systolic BP >160, # 42 tab(s), 0 Refill(s), Pharmacy: [facility]/pharmacy #[id number], 188, cm, 02/10/25 1:33:00 EDT, Height, kg, 02/15/25 5:52:00 EDT, Dosing Weight Start Date: 02/15/25 Stop Date: 03/08/25 Status: Ordered Quantity: 42.0 Unit: tab(s) Repeat number: 1 clotrimazole 10 mg/ml topical cream (2 sources) Azole Antifungal Start: 04-06-2024 End: 04-20-2024 clotrimazole 1% topical cream Apply 1 artemio, Topical, BID, # 15 gram(s), 0 Refill(s), Cream, 127.5 Start Date: 04/06/24 Stop Date: 04/20/24 Status: Ordered Continuous Glucose Head Rigger (FreeStyle Yanni 3 [place]) device (20 sources) Start: 09-22-2024 Continuous Glucose Head Rigger (FreeStyle Yanni 3 [place]) device Indications: Diabetes mellitus with proteinuria (HCC) , Type 2 diabetes mellitus with diabetic polyneuropathy, with long-term current use of insulin (HCC) Use as directed 1 each 09/22/2024 Active Start: 09-22-2024 Continuous Glu cose Head Rigger (FreeStyle Yanni 3 [place]) device Indications: 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) , Type 2 diabetes mellitus with diabetic polyneuropathy, with long-term current use of insulin (HCC) Use as directed 1 each 09/22/2024 Active Continuous Glucose Sensor (FreeStyle Yanni 3 Sensor) mis (20 sources) Start: 04-28-2025 Continuous Glu cose Sensor (FreeStyle Yanni 3 Sensor) [facility] [place] Indications: Diabetes mellitus with proteinuria (HCC) , Type 2 diabetes mellitus with diabetic polyneuropathy, with long-term current use of insulin (HCC) every 14 (fourteen) days. 2 each 04/28/2025 Active Start: 04-28-2025 Continuous Glu cose Sensor (FreeStyle Yanni 3 Sensor) [facility] [place] Indications: 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) , Type 2 diabetes mellitus with diabetic polyneuropathy, with long-term current use of insulin (HCC) every 14 (fourteen) days. 2 each 04/28/2025 Active Start: 11-10-2024 End: 04-27-2025 Continuous Glucose Sensor (F reeStyle Yanni 3 Sensor) [facility] [place] Indications: 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) , Type 2 diabetes mellitus with diabetic polyneuropathy, with long-term current use of insulin (HCC) every 14 (fourteen) days. 2 each 11/10/2024 04/27/2025 Discontinued (Reorder) Start: 11-10-2024 Continuous Glu cose Sensor (FreeStyle Yanni 3 Sensor) [facility] [place] Indications: 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) , Type 2 diabetes mellitus with diabetic polyneuropathy, with long-term current use of insulin (HCC) every 14 (fourteen) days. 2 each 11/10/2024 Active Start: 09-22-2024 Continuous Glu cose Sensor (FreeStyle Yanni 3 Sensor) [facility] [place] Indications: 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) , Type 2 diabetes mellitus with diabetic polyneuropathy, with long-term current use of insulin (HCC) every 14 (fourteen) days. 2 each 5 09/22/2024 Active 1 ml diphenhydrAMINE hydrochloride 50 mg/ml cartridge (2 sources) Histamine-1 Receptor Antagonist Start: 11-15-2020 End: 11-15-2020 diphenhydrAMINE (BENADRYL) injection 12.5 mg Start: 05-14-2020 End: 05-14-2020 diphenhydrAMINE (BENADRYL) i njection 12.5 mg fenofibrate 145 mg oral tablet (20 sources) Peroxisome Proliferator Receptor alpha Agonist Start: 09-19-2020 End: 05-09-2023 take 1 tablet by mouth once daily fenofibrate (Tricor) 145 MG tablet Take 1 tablet (145 mg) by mouth daily. 90 tablet 0 01/15/2023 Active Start: 05-03-2020 take 1 tablet by devi th once daily fenofibrate (TRICOR) 145 MG tablet Indications: Hyperlipidemia LDL goal Take 1 tablet by mouth daily 30 tablet 2 05/03/2020 Active gabapentin 300 mg oral capsule (20 sources) Anti-epileptic Agent Start: 04-27-2025 End: 06-16-2025 take 1 capsule by mouth once daily gabapentin (Neurontin) 300 MG capsule Indications: Type 2 diabetes mellitus with diabetic polyneuropathy, with long-term current use of insulin (HCC) Take 1 capsule (300 mg) by mouth Nightly. 90 capsule 06/16/2025 Active Start: 03-26-2025 take 1 capsule by mo uth once daily gabapentin (Neurontin) 300 MG capsule Indications: Type 2 diabetes mellitus with diabetic polyneuropathy, with long-term current use of insulin (HCC) TAKE 1 CAPSULE BY MOUTH EVERY DAY AT NIGHT 30 capsule 03/26/2025 Active Start: 02-27-2025 take 1 capsule by mo uth once daily gabapentin (Neurontin) 300 MG capsule Indications: Type 2 diabetes mellitus with diabetic polyneuropathy, with long-term current use of insulin (HCC) TAKE 1 CAPSULE BY MOUTH NIGHTLY. 30 capsule 02/27/2025 Active Start: 12-29-2024 End: 01-27-2025 take 1 capsule by mouth once daily gabapentin (Neurontin) 300 MG capsule Indications: Type 2 diabetes mellitus with diabetic polyneuropathy, with long-term current use of insulin (HCC) Take 1 capsule (300 mg) by mouth Nightly. 30 capsule 01/27/2025 Active Start: 10-20-2024 End: 12-13-2024 take 1 capsule by mouth once daily gabapentin (Neurontin) 300 MG capsule Indications: Type 2 diabetes mellitus with diabetic polyneuropathy, with long-term current use of insulin (HCC) Take 1 capsule (300 mg) by mouth Nightly. 30 capsule 11/21/2024 12/13/2024 Discontinued (Reorder) Start: 09-22-2024 take 1 capsule by mo ut once daily gabapentin (Neurontin) 300 MG capsule Indications: Type 2 diabetes mellitus with diabetic polyneuropathy, with long-term current use of insulin (HCC) Take 1 capsule (300 mg) by mouth Nightly. 30 capsule 09/22/2024 Active Start: 03-13-2024 End: 08-18-2024 gabapentin (Neurontin) 300 M G capsule Indications: Type 2 diabetes mellitus with diabetic polyneuropathy, with long-term current use of insulin (HCC) , Diabetic polyneuropathy associated with type 2 diabetes mellitus (CMS/HCC) (HCC) Take 1 capsule (300 mg) by mouth every evening. 30 capsule 03/13/2024 08/18/2024 Discontinued (Dose adjustment) Start: 02-13-2024 gabapentin (Ne urontin) 300 MG capsule Indications: Type 2 diabetes mellitus with diabetic polyneuropathy, with long-term current use of insulin (HCC) , Diabetic polyneuropathy associated with type 2 diabetes mellitus (CMS/HCC) (HCC) Take 1 capsule (300 mg) by mouth every evening. 30 capsule 0 02/13/2024 Active Start: 01-16-2024 gabapentin (Ne urontin) 300 MG capsule Indications: Type 2 diabetes mellitus with diabetic polyneuropathy, with long-term current use of insulin (CMS/HCC) (HCC) , Diabetic polyneuropathy associated with type 2 diabetes mellitus (CMS/HCC) (HCC) Take 1 capsule (300 mg) by mouth every evening. 30 capsule 0 01/16/2024 Active Start: 12-14-2023 gabapentin (Ne urontin) 300 MG capsule Indications: Type 2 diabetes mellitus with diabetic polyneuropathy, with long-term current use of insulin (CMS/HCC) (HCC) , Diabetic polyneuropathy associated with type 2 diabetes mellitus (CMS/HCC) (HCC) Take 1 capsule (300 mg) by mouth every evening. 30 capsule 0 12/14/2023 Active Start: 09-19-2023 End: 10-18-2023 gabapentin (Neurontin) 300 M G capsule Indications: Type 2 diabetes mellitus with diabetic polyneuropathy, with long-term current use of insulin (CMS/HCC) (HCC) , Diabetic polyneuropathy associated with type 2 diabetes mellitus (CMS/HCC) (HCC) Take 1 capsule (300 mg) by mouth every evening. 30 capsule 0 10/18/2023 Active Start: 08-15-2023 gabapentin (Ne urontin) 300 MG capsule Indications: Type 2 diabetes mellitus with diabetic polyneuropathy, with long-term current use of insulin (CMS/HCC) (HCC) , Diabetic polyneuropathy associated with type 2 diabetes mellitus (CMS/HCC) (HCC) Take 1 capsule (300 mg) by mouth every evening. 30 capsule 0 08/15/2023 Active Start: 07-16-2023 take 1 capsule by mo ut once daily in the evening gabapentin (Neurontin) 300 MG capsule Indications: Type 2 diabetes mellitus with diabetic polyneuropathy, with long-term current use of insulin (CMS/HCC) (HCC) , Diabetic polyneuropathy associated with type 2 diabetes mellitus (CMS/HCC) (HCC) Take 1 capsule (300 mg) by mouth every evening. Do not start before July 16, 2023. 30 capsule 0 07/16/2023 Active Start: 06-15-2023 gabapentin (Ne urontin) 300 MG capsule Indications: Type 2 diabetes mellitus with diabetic polyneuropathy, with long-term current use of insulin (CMS/HCC) (HCC) , Diabetic polyneuropathy associated with type 2 diabetes mellitus (CMS/HCC) (HCC) Take 1 capsule (300 mg) by mouth every evening. 30 capsule 0 06/15/2023 Active Start: 05-18-2023 gabapentin (Ne urontin) 300 MG capsule Indications: Type 2 diabetes mellitus with diabetic polyneuropathy, with long-term current use of insulin (CMS/HCC) (HCC) , Diabetic polyneuropathy associated with type 2 diabetes mellitus (CMS/HCC) (HCC) Take 1 capsule (300 mg) by mouth every evening. 30 capsule 0 05/18/2023 Active Start: 03-09-2023 End: 04-08-2023 gabapentin (Neurontin) 300 M G capsule Indications: Type 2 diabetes mellitus with diabetic polyneuropathy, with long-term current use of insulin (CMS/HCC) (HCC) , Diabetic polyneuropathy associated with type 2 diabetes mellitus (CMS/HCC) (HCC) Take 1 capsule (300 mg) by mouth every evening. 30 capsule 0 04/09/2023 Active Start: 01-08-2023 gabapentin (Ne urontin) 300 MG capsule Indications: Type 2 diabetes mellitus with diabetic polyneuropathy, with long-term current use of insulin (CMS/HCC) (HCC) , Diabetic polyneuropathy associated with type 2 diabetes mellitus (CMS/HCC) (HCC) Take 1 capsule (300 mg) by mouth every evening. 30 capsule 0 01/08/2023 Active Start: 12-20-2022 End: 01-08-2023 take 2 capsules by mouth once daily in the evening gabapentin (Neurontin) 100 MG capsule Indications: Diabetic polyneuropathy associated with type 2 diabetes mellitus (CMS/HCC) (HCC) take 2 capsules by mouth every evening 60 capsule 0 12/20/2022 01/08/2023 Discontinued (Reorder) Start: 11-17-2022 take 2 capsules by m outh once daily in the evening gabapentin (Neurontin) 100 MG capsule Indications: Diabetic polyneuropathy associated with type 2 diabetes mellitus (CMS/HCC) ([facility]) take 2 capsules by mouth every evening 60 capsule 0 11/17/2022 Active Start: 09-21-2022 End: 10-20-2022 take 2 capsules by mouth once daily in the evening gabapentin (Neurontin) 100 MG capsule take 2 capsules by mouth every evening 60 capsule 0 09/21/2022 10/20/2022 Discontinued Start: 08-18-2021 End: 09-17-2021 take 2 capsules by mouth once daily gabapentin (NEURONTIN) 100 MG capsule Indications: Type 2 diabetes mellitus with diabetic polyneuropathy, without long-term current use of insulin ([facility]) Take 2 capsules by mouth nightly for 30 days. 60 capsule 0 08/18/2021 09/17/2021 Active Start: 07-27-2020 End: 09-22-2024 take 1 capsule by mouth once daily gabapentin (Neurontin) 100 MG capsule Take 100 mg by mouth Nightly. 08/06/2024 09/22/2024 Discontinued (Reorder) Start: 05-03-2020 End: 06-02-2020 take 1 capsule by mouth once daily gabapentin (NEURONTIN) 100 MG capsule Indications: Type 2 diabetes mellitus with diabetic polyneuropathy, without long-term current use of insulin ([facility]) Take 1 capsule by mouth nightly for 30 days. 30 capsule 2 05/03/2020 06/02/2020 Active glimepiride 4 mg oral tablet (20 sources) Sulfonylurea Start: 04-24-2025 take 2 tablets by mouth once daily at breakfast glimepiride (Amaryl) 4 MG tablet Indications: Type 2 diabetes mellitus with diabetic polyneuropathy, with long-term current use of insulin ([facility]) TAKE 2 TABLETS (8 MG) BY MOUTH DAILY (WITH BREAKFAST). 180 tablet 1 04/24/2025 Active Start: 10-24-2024 take 2 tablets by mo uth once daily at breakfast glimepiride (Amaryl) 4 MG tablet Indications: Type 2 diabetes mellitus with diabetic polyneuropathy, with long-term current use of insulin ([facility]) Take 2 tablets (8 mg) by mouth daily (with breakfast). 180 tablet 1 10/24/2024 Active Start: 03-08-2024 glimepiride 4 mg oral tablet Dose : 8 mg = 2 tab(s), Oral, with breakfast, 0 Refill(s) Start Date: 03/08/24 Status: Ordered Repeat number: 1 Start: 12-14-2023 take 2 tablets by mo uth once daily before breakfast glimepiride (Amaryl) 4 MG tablet Indications: Type 2 diabetes mellitus with diabetic polyneuropathy, with long-term current use of insulin ([facility]) Take 2 tablets (8 mg) by mouth every morning (before breakfast). 180 tablet 1 12/14/2023 Active Start: 11-14-2022 End: 05-07-2023 take 2 tablets by mouth once daily before breakfast glimepiride (Amaryl) 4 MG tablet Indications: Type 2 diabetes mellitus with diabetic polyneuropathy, with long-term current use of insulin ([facility]/HCC) ([facility]) take 2 tablets by mouth every morning BEFORE BREAKFAST 180 tablet 1 05/07/2023 Active Start: 08-22-2021 take 2 tablets by mo uth once daily before breakfast glimepiride (AMARYL) 4 MG tablet Take 2 tablets by mouth every morning (before breakfast) 60 tablet 2 08/22/2021 Active hydrALAZINE hydrochloride 50 mg oral tablet (11 sources) Arteriolar Vasodilator Start: 02-15-2025 End: 02-15-2025 hydrALAZINE Start: 02/15/25 4:00:00 PM EDT, Dose = 50 mg, = 1 tab(s), Oral, Hold if SBP (mmHg) Start Date: 02/15/25 Stop Date: 02/15/25 Status: Completed Repeat number: 1 Start: 02-15-2025 End: 06-16-2025 take 1 tablet by mouth three times daily hydrALAZINE (Apresoline) 50 MG tablet Indications: Cardiomyopathy, unspecified type (HCC) , Essential hypertension Take 1 tablet (50 mg) by mouth 3 times daily. 270 tablet 06/16/2025 Active Start: 11-15-2020 hydrALAZINE (A PRESOLINE) injection 5 mg Start: 05-14-2020 hydrALAZINE (A PRESOLINE) injection 5 mg 1 ml HYDROmorphone hydrochloride 1 mg/ml cartridge (4 sources) Opioid Agonist Start: 11-15-2020 HYDROmorphone (DILAUDID) injection 0.5 mg Start: 11-15-2020 HYDROmorphone (DILAUDID) injection 1 mg Start: 11-15-2020 HYDROmorphone (DILAUDID) injection 0.25 mg 3 ml insulin glargine 100 unt/ml pen injector (20 sources) Insulin Analog Start: 06-24-2025 Lantus SoloSta r 100 UNIT/ML pen Indications: Type 2 diabetes mellitus with diabetic polyneuropathy, with long-term current use of insulin ([facility]) , Diabetes mellitus with proteinuria (CMS/HCC) (HCC) ([facility]) inject 14 units subcutaneously in the morning. 06/24/2025 Active Start: 06-16-2025 inject 10 [IU] by berry bcutaneous injection in the morning Lantus SoloStar 100 UNIT/ML pen Indications: Type 2 diabetes mellitus with diabetic polyneuropathy, with long-term current use of insulin ([facility]) , Diabetes mellitus with proteinuria (CMS/HCC) (HCC) ([facility]) inject 10 units subcutaneously in the morning. 3 mL 3 06/16/2025 Active Start: 09-24-2024 End: 06-16-2025 Lantus SoloStar 100 UNIT/ML pen Indications: Diabetes mellitus with proteinuria (CMS/HCC) (HCC) ([facility]) , Type 2 diabetes mellitus with diabetic polyneuropathy, with long-term current use of insulin ([facility]) inject 16 units subcutaneously nightly 09/24/2024 06/16/2025 Discontinued Start: 06-29-2024 inject 1 dose by sub cutaneous injection once daily at bedtime Lantus 100 units/mL10 ml vial solution Dose : 15 unit(s) =, Subcutaneous (INT), qHS, 0 Refill(s) Start Date: 06/29/24 Status: Ordered Repeat number: 1 Start: 03-20-2024 inject 1 dose by sub cutaneous injection once daily at bedtime Lantus Solostar Pen 100 units/mL 3 mL Pen Dose : 30 unit(s) =, Subcutaneous, qHS, # 15 mL, 0 Refill(s), Pharmacy: [email or web address] #[id number], 188, cm, 03/08/24 16:58:00 EDT, Height, kg, 03/08/24 16:58:00 EDT, Dosing Weight Start Date: 03/20/24 Status: Ordered Start: 03-11-2024 inject 1 dose by sub cutaneous injection once daily at bedtime Lantus 100 units/mL10 ml vial solution Dose : 30 unit(s) =, Subcutaneous, qHS, # 15 mL, 0 Refill(s), Pharmacy: [email or web address] #[id number], 188, cm, 03/08/24 16:58:00 EDT, Height, kg, 03/08/24 16:58:00 EDT, Dosing Weight Start Date: 03/11/24 Status: Ordered Start: 06-06-2023 End: 09-22-2024 Lantus SoloStar 100 UNIT/ML pen Indications: Diabetes mellitus with proteinuria (CMS/HCC) (HCC) ([facility]) , Type 2 diabetes mellitus with diabetic polyneuropathy, with long-term current use of insulin ([facility]) inject 14 units subcutaneously every morning 09/22/2024 Active Start: 04-13-2023 End: 05-14-2023 inject 14 [IU] by subcutaneous injection once daily in the morning, then inject 14 [IU] by subcutaneous injection once daily in the evening Lantus SoloStar 100 UNIT/ML pen Indications: Type 2 diabetes mellitus with diabetic polyneuropathy, with long-term current use of insulin (CMS/HCC) ([facility]) , Diabetic polyneuropathy associated with type 2 diabetes mellitus (CMS/HCC) (HCC) , Diabetes mellitus with proteinuria (CMS/HCC) ([facility]) inject 14 units subcutaneously every morning and 14 units every evening 3 mL 1 05/14/2023 Active Start: 07-05-2022 End: 04-13-2023 Lantus SoloStar 100 UNIT/ML pen Indications: Type 2 diabetes mellitus with diabetic polyneuropathy, with long-term current use of insulin (CMS/HCC) (HCC) , Diabetic polyneuropathy associated with type 2 diabetes mellitus (CMS/HCC) (HCC) , Diabetes mellitus with proteinuria (CMS/HCC) ([facility]) inject 12 units subcutaneously every morning and 14 units EVERY EVENING Strength: 100 UNIT/ML 3 mL 1 01/08/2023 Active Start: 05-02-2019 End: 06-01-2019 inject 0.2 mL by subcutaneous injection once daily at bedtime Lantus 100 units/mL10 ml vial solution Dose : 20 unit(s) = 0.2 mL, Subcutaneous, qHS, # 6 mL, 0 Refill(s), Pharmacy: [facility] Start Date: 05/02/19 Stop Date: 06/01/19 Status: Ordered insulin isophane (2 sources) Start: 05-02-2024 insulin isopha ne (NPH) Dose : 8 unit(s) =, Subcutaneous, TIDAC, 0 Refill(s) Start Date: 05/02/24 Status: Ordered 3 ml insulin lispro 100 unt/ml pen injector (18 sources) Insulin Analog Start: 06-24-2025 inject 8 [IU] by subcutaneous injection three times daily at mealtime insulin lispro (HumaLOG) 100 UNIT/ML pen injection Indications: Type 2 diabetes mellitus with diabetic polyneuropathy, with long-term current use of insulin (HCC) 8 units subcutaneously three times daily with meals 06/24/2025 Active Start: 06-18-2025 inject 5 [IU] by sub cutaneous injection three times daily at mealtime insulin lispro (HumaLOG) 100 UNIT/ML pen injection Indications: Type 2 diabetes mellitus with diabetic polyneuropathy, with long-term current use of insulin (HCC) 5 units subcutaneously three times daily with meals 15 mL 11 06/18/2025 Active Start: 06-16-2025 inject 5 [IU] by sub cutaneous injection three times daily at mealtime insulin lispro (HumaLOG) 100 UNIT/ML pen cartridge Indications: Type 2 diabetes mellitus with diabetic polyneuropathy, with long-term current use of insulin (HCC) Inject 5 Units under the skin 3 times daily (with meals). 13.5 mL 1 06/16/2025 Active Start: 05-09-2024 HumaLOG 100 un its/mL subcutaneous solution Give 0-10 units/dose, Subcutaneous, TIDAC, 0 Refill(s) Start Date: 05/09/24 Status: Ordered Repeat number: 1 End: 06-16-2025 inject 5 [IU] by subcutaneous injection three times daily at mealtime Insulin Lispro (HUMALOG SC) Inject 5 Units under the skin 3 times daily (with meals). 06/16/2025 Discontinued (Reorder) inject 17 [IU] by berry bcutaneous injection three times daily at mealtime Insulin Lispro (HUMALOG SC) Inject 17 Units under the skin 3 times daily (with meals). Active isopropyl alcohol 0.7 ml/ml medicated pad (20 sources) Start: 08-13-2023 Alcohol Swabs (B-D SINGLE USE SWABS REGULAR) pads use three times a day as directed 120 each 2 08/13/2023 Active Start: 03-19-2023 Alcohol Swabs (B-D SINGLE USE SWABS REGULAR) pads use three times a day as directed 120 each 2 03/19/2023 Active Start: 10-06-2022 End: 03-19-2023 RA Alcohol Swabs 70 % pads u se three times a day as directed Strength: 70 % 120 each 0 01/01/2023 Active 4 ml labetalol hydrochloride 5 mg/ml cartridge (2 sources) beta-Adrenergic Huyen Start: 11-15-2020 labetalol (NORMODYNE;TRANDATE) injection 5 mg Start: 05-14-2020 labetalol (NOR MODYNE;TRANDATE) injection 5 mg Lidocaine (8 sources) Antiarrhythmic, Amide Local Anesthetic Start: 05-02-2024 lidocaine 4% patch Transdermal, q24h, 0 Refill(s) Start Date: 05/02/24 Status: Ordered Repeat number: 1 Start: 05-02-2024 lidocaine 4% p atch Transdermal, q24h, 0 Refill(s) Start Date: 05/02/24 Status: Ordered Start: 11-15-2020 End: 11-15-2020 lidocaine PF 1 % injection 1 mL Start: 05-14-2020 End: 05-14-2020 lidocaine PF 1 % injection 1 mL linezolid 600 mg oral tablet (3 sources) Oxazolidinone Antibacterial Start: 06-25-2024 End: 07-09-2024 Zyvox 600 mg oral tablet Dose : 600 mg = 1 tab(s), Oral, BID, X 14 day(s), # 28 tab(s), 0 Refill(s), 07/09/24 11:25:00 AM EDT, [id number], 188, cm, 06/18/24 18:59:00 EDT, Height, 109.5, kg, 06/18/24 18:59:00 EDT, Dosing Weight Start Date: 06/25/24 Stop Date: 07/09/24 Status: Ordered Start: 05-02-2024 End: 05-18-2024 Zyvox 600 mg oral tablet Dos e : 600 mg = 1 tab(s), Oral, BID, 0 Refill(s), 125 Start Date: 05/02/24 Stop Date: 05/18/24 Status: Ordered lisinopril 20 mg oral tablet (20 sources) Angiotensin Converting Enzyme Inhibitor Start: 05-31-2020 End: 09-22-2024 take 1 tablet by mouth once daily lisinopril 20 MG tablet take 1 tablet by mouth once daily 30 tablet 5 09/21/2022 Active Start: 12-12-2019 take 1 tablet by devi th once daily lisinopril (PRINIVIL;ZESTRIL) 20 MG tablet Indications: Essential hypertension , Type 2 diabetes mellitus with diabetic polyneuropathy, without long-term current use of insulin (HCC) Take 1 tablet by mouth daily 30 tablet 5 12/12/2019 Active losartan potassium 25 mg oral tablet (2 sources) Angiotensin 2 Receptor Huyen Start: 05-06-2024 losartan 25 mg oral tablet Dose : 25 mg = 1 tab(s), Oral, qDay, 0 Refill(s) Start Date: 05/06/24 Status: Ordered melatonin 3 mg oral tablet (20 sources) Start: 12-22-2024 End: 06-11-2025 take 1 tablet by mouth once daily melatonin 3 MG tablet Take 1 tablet (3 mg) by mouth Nightly. 30 tablet 3 06/12/2025 Active Start: 10-29-2024 End: 12-22-2024 take 1 tablet by mouth once daily as needed for sleep Melatonin 3 MG tablet dispersible Take 3 mg by mouth Nightly as needed (sleep). 30 tablet 11/20/2024 12/22/2024 Discontinued 1 ml meperidine hydrochloride 50 mg/ml injection (1 source) Opioid Agonist Start: 11-15-2020 meperidine (DEMEROL) injection 12.5 mg 24 hr metoprolol succinate 25 mg extended release oral tablet (20 sources) beta-Adrenergic Huyen Start: 06-16-2025 End: 12-13-2025 take 1 tablet by mouth once daily metoprolol succinate XL (Toprol-XL) 25 MG 24 hr tablet Indications: Cardiomyopathy, unspecified type (HCC) , Paroxysmal atrial fibrillation (HCC) Take 1 tablet (25 mg) by mouth daily. Do not crush or chew. 90 tablet 1 06/16/2025 12/13/2025 Active Start: 02-12-2025 End: 02-12-2025 take 1 tablet by mouth in the morning Toprol-XL Start: 02/12/25 8:00:00 AM EDT, Dose = 50 mg, = 1 tab(s), Oral, 02/10/25 18:08:00 EDT Start Date: 02/12/25 Stop Date: 02/12/25 Status: Completed Repeat number: 1 Start: 02-11-2025 End: 02-11-2025 take 1 tablet by mouth in the evening Toprol-XL Start: 02/11/25 7:15:00 PM EDT, Dose = 50 mg, = 1 tab(s), Oral, Once, Stop: 02/11/25 8:00:39 PM EDT, 0, 02/11/25 19:09:00 EDT Notes: Do not crush or chew (controlled release).Take with food. Start Date: 02/11/25 Stop Date: 02/11/25 Status: Completed Repeat number: 1 Start: 02-11-2025 End: 02-11-2025 take 1 tablet by mouth in the morning Toprol-XL Start: 02/11/25 8:00:00 AM EDT, Dose = 50 mg, = 1 tab(s), Oral, 02/10/25 18:08:00 EDT Start Date: 02/11/25 Stop Date: 02/11/25 Status: Completed Repeat number: 1 Start: 06-30-2024 End: 06-30-2024 Toprol-XL Start: 06/30/24 5:0 0:00 PM EDT, Dose = 100 mg, = 1 tab(s), Oral, 0, 06/18/24 20:18:00 EDT Start Date: 06/30/24 Stop Date: 06/30/24 Status: Completed Start: 06-30-2024 End: 06-30-2024 Toprol-XL Start: 06/30/24 8:0 0:00 AM EDT, Dose = 100 mg, = 1 tab(s), Oral, 0, 06/18/24 20:18:00 EDT Start Date: 06/30/24 Stop Date: 06/30/24 Status: Completed Start: 06-29-2024 End: 06-29-2024 Toprol-XL Start: 06/29/24 5:0 0:00 PM EDT, Dose = 100 mg, = 1 tab(s), Oral, 0, 06/18/24 20:18:00 EDT Start Date: 06/29/24 Stop Date: 06/29/24 Status: Completed Start: 05-15-2024 End: 05-15-2024 Toprol-XL Start: 05/15/24 5:0 0:00 PM EDT, Dose = 100 mg, = 1 tab(s), Oral, 05/08/24 6:59:00 EDT Start Date: 05/15/24 Stop Date: 05/15/24 Status: Completed Start: 05-15-2024 End: 06-16-2025 take 1 tablet by mouth once daily metoprolol succinate XL (Toprol-XL) 100 MG 24 hr tablet Indications: Paroxysmal atrial fibrillation (HCC) , Cardiomyopathy, unspecified type (HCC) Take 100 mg by mouth daily. 09/11/2024 06/16/2025 Discontinued Start: 05-15-2024 End: 05-15-2024 Toprol-XL Start: 05/15/24 8:0 0:00 AM EDT, Dose = 100 mg, = 1 tab(s), Oral, 05/08/24 6:59:00 EDT Start Date: 05/15/24 Stop Date: 05/15/24 Status: Completed Start: 05-14-2024 End: 05-14-2024 Toprol-XL Start: 05/14/24 5:0 0:00 PM EDT, Dose = 100 mg, = 1 tab(s), Oral, 05/08/24 6:59:00 EDT Start Date: 05/14/24 Stop Date: 05/14/24 Status: Completed Start: 05-07-2024 End: 05-07-2024 Toprol-XL Start: 05/07/24 7:0 3:00 PM EDT, Dose = 100 mg, = 1 tab(s), Oral, 05/07/24 19:03:00 EDT Start Date: 05/07/24 Stop Date: 05/07/24 Status: Completed Start: 05-06-2024 End: 05-06-2024 Toprol-XL Start: 05/06/24 5:0 0:00 PM EDT, Dose = 100 mg, = 1 tab(s), Oral, give with food/meal, 0, 04/25/24 11:36:00 EDT Start Date: 05/06/24 Stop Date: 05/06/24 Status: Completed Start: 05-06-2024 End: 05-06-2024 Toprol-XL Start: 05/06/24 8:0 0:00 AM EDT, Dose = 100 mg, = 1 tab(s), Oral, give with food/meal, 0, 04/25/24 11:36:00 EDT Start Date: 05/06/24 Stop Date: 05/06/24 Status: Completed Start: 05-02-2024 Toprol-XL 100 mg oral tablet, extended release Dose : 100 mg = 1 tab(s), Oral, BID, 0 Refill(s) Start Date: 05/02/24 Status: Ordered midodrine hydrochloride 10 mg oral tablet (6 sources) alpha-Adrenergic Agonist Start: 05-11-2025 take 1 tablet by mouth three times weekly midodrine (Proamatine) 10 MG tablet Take 10 mg by mouth three times a week. 05/11/2025 Active minocycline 100 mg oral capsule (3 sources) Tetracycline-class Drug Start: 05-02-2024 End: 05-28-2024 minocycline 100 mg oral capsule Dose : 100 mg = 1 cap(s), Oral, q12h, X 13 day(s), # 26 cap(s), 0 Refill(s), 05/28/24 11:47:00 AM EDT, Pharmacy: [facility] #[id number], 187, cm, 05/08/24 5:24:00 EDT, Height, 114.4, kg, 05/08/24 5:24:00 EDT, Dosing Weight Start Date: 05/15/24 Stop Date: 05/28/24 Status: Ordered omeprazole 40 mg delayed release oral capsule (20 sources) Proton Pump Inhibitor Start: 03-16-2025 take 1 capsule by mouth twice daily before mealtime omeprazole (PriLOSEC) [address] capsule TAKE 1 CAPSULE (40 MG) BY MOUTH 2 TIMES DAILY (BEFORE MEALS). DO NOT CRUSH OR CHEW 60 capsule 5 03/16/2025 Active Start: 09-19-2020 take 1 capsule by mo uth twice daily before mealtime omeprazole (PriLOSEC) [address] capsule Take 1 capsule (40 mg) by mouth 2 times daily (before meals). Do not crush or chew. 60 capsule 2 12/08/2024 Active Start: 05-31-2020 End: 04-02-2024 take 1 capsule by mouth once daily in the morning, then take 1 capsule by mouth once daily before mealtime omeprazole (PriLOSEC) [address] capsule take 1 capsule by mouth every morning and 1 every evening before meals 60 capsule 2 04/02/2024 Active Start: 12-12-2019 take 1 capsule by mo uth once daily omeprazole (PRILOSEC) 40 MG delayed release capsule Indications: Gastroesophageal reflux disease, esophagitis presence not specified Take 1 capsule by mouth daily 30 capsule 5 12/12/2019 Active 2 ml ondansetron 2 mg/ml injection (2 sources) Serotonin-3 Receptor Antagonist Start: 11-15-2020 End: 11-15-2020 ondansetron (ZOFRAN) injection 4 mg Start: 05-14-2020 End: 05-14-2020 ondansetron (ZOFRAN) injecti on 4 mg oxyCODONE (1 source) Opioid Agonist Start: 11-15-2020 End: 11-15-2020 oxyCODONE (ROXICODONE) immediate release tablet 5 mg polyethylene glycol 3350 [id number] mg powder for oral solution (20 sources) Osmotic Laxative Start: 07-30-2023 take 17 g by mouth once daily polyethylene glycol, PEG, 3350 (Miralax) 17 g packet Take 17 g by mouth daily. 30 packet 2 07/30/2023 Active 1 ml promethazine hydrochloride 25 mg/ml injection (2 sources) Phenothiazine Start: 11-15-2020 End: 11-15-2020 promethazine (PHENERGAN) injection 6.25 mg Start: 05-14-2020 End: 05-14-2020 promethazine (PHENERGAN) inj ection 6.25 mg rosuvastatin calcium 10 mg oral tablet (20 sources) HMG-CoA Reductase Inhibitor Start: 02-17-2025 take 1 tablet by mouth once daily rosuvastatin (Crestor) 10 MG tablet Indications: Hyperlipidemia LDL goal Take 1 tablet (10 mg) by mouth daily. 90 tablet 1 02/17/2025 Active Start: 09-24-2024 take 1 tablet by devi th once daily rosuvastatin (Crestor) 10 MG tablet Indications: Hyperlipidemia LDL goal Take 1 tablet (10 mg) by mouth daily. 90 tablet 1 09/24/2024 Active Start: 09-19-2020 End: 02-18-2024 take 1 tablet by mouth once daily rosuvastatin (Crestor) 10 MG tablet Indications: Hyperlipidemia LDL goal take 1 tablet by mouth once daily 14 tablet 04/16/2024 Active Start: 05-03-2020 take 1 tablet by devi th once daily rosuvastatin (CRESTOR) 10 MG tablet Indications: Hyperlipidemia LDL goal Take 1 tablet by mouth daily 30 tablet 2 05/03/2020 Active 0.25 mg, 0.5 mg dose 1.5 ml semaglutide 1.34 mg/ml pen injector (1 source) Start: 05-28-2023 inject 0.25 mg by subcutaneous injection every week semaglutide (Ozempic) 2 MG/1.5ML solution pen-injector Indications: Type 2 diabetes mellitus with diabetic polyneuropathy, with long-term current use of insulin ([facility]/HCC) ([facility]) Inject 0.25 mg under the skin 1 (one) time per week. 1 each 0 05/28/2023 Active SITagliptin 50 mg oral tablet (17 sources) Dipeptidyl Peptidase 4 Inhibitor Start: 08-29-2022 End: 05-28-2023 Januvia 50 MG tablet Indications: Type 2 diabetes mellitus with diabetic polyneuropathy, with long-term current use of insulin ([facility]) ([facility]) , Diabetic polyneuropathy associated with type 2 diabetes mellitus ([facility]/HCC) ([facility]) , Diabetes mellitus with proteinuria (CMS/[facility]) ([facility]) Take 1 tablet (50 mg) by mouth daily. 90 tablet 1 01/08/2023 Active 1000 ml sodium chloride 9 mg/ml injection (3 sources) Start: 05-14-2020 0.9 % sodium chloride infusion Start: 05-14-2020 sodium chlorid e flush 0.9 % injection 10 mL sulfamethoxazole 800 mg / trimethoprim 160 mg oral tablet (1 source) Dihydrofolate Reductase Inhibitor Antibacterial, Sulfonamide Antimicrobial Start: 01-28-2025 End: 02-07-2025 take 1 tablet by mouth twice daily sulfamethoxazole-trimethoprim (Bactrim DS) 800-160 MG tablet Take 1 tablet by mouth 2 times daily for 10 days. 20 tablet 01/28/2025 02/07/2025 Active Transparent Dressings (TEGADERM FIRST AID STYLE) misc (11 sources) Start: 04-16-2025 Transparent Dressings (TEGAD ERM FIRST AID STYLE) misc Applied to area of concern as needed 30 each 04/16/2025 Active TRUE METRIX LINDA GLUCOSE (5 sources) Start: 09-19-2020 TRUE METRIX LINDA GLUCOSE TRUE METRIX LINDA GLUCOSE, 0 Refill(s), 130 Start Date: 09/19/20 Status: Ordered TRUPLUS LANC MIS 33G (5 sources) Start: 09-19-2020 TRUPLUS LANC MIS 33G TRUPLUS LANC MIS 33G, 0 Refill(s), 130 Start Date: 09/19/20 Status: Ordered Completed/Discontinued Medications Medication Drug Class(es) Dates Sig (Normalized) Sig (Original) bacitracin 0.5 unt/mg topical ointment (6 sources) Start: 05-02-2024 bacitracin topical ointment Apply 1 artemio, Topical, BID, 0 Refill(s), Ointment, 125 Start Date: 05/02/24 Status: Ordered Repeat number: 1 bumetanide 1 mg oral tablet (6 sources) Loop Diuretic Start: 05-19-2024 End: 08-17-2024 bumetanide 1 mg oral tablet Dose : 1 mg = 1 tab(s), Oral, BID, Start on 05/19/24, # 60 tab(s), 2 Refill(s), Pharmacy: [facility] #[id number], 187, cm, 05/08/24 5:24:00 EDT, Height, kg, 05/08/24 5:24:00 EDT, Dosing Weight Start Date: 05/19/24 Stop Date: 08/17/24 Status: Ordered Quantity: 60.0 Unit: tab(s) Repeat number: 3 Start: 05-02-2024 Bumex Dose : 1 mg = 1 tab(s), Oral, BID, 0 Refill(s) Start Date: 05/02/24 Status: Ordered cephalexin 500 mg oral capsule (2 sources) Cephalosporin Antibacterial Start: 09-04-2021 End: 09-11-2021 cephALEXin (KEFLEX) capsule 500 mg Dakins Half Strength 0.25% topical solution (6 sources) Start: 05-06-[address] rength 0.25% topical solution Apply 1 artemio, Topical, BID, 0 Refill(s), Soln, 125 Start Date: 05/06/24 Status: Ordered Repeat number: 1 Start: 05-06-[address] rength 0.25% topical solution Apply 1 artemio, Topical, BID, 0 Refill(s), Soln, 125 Start Date: 05/06/24 Status: Ordered 0.5 ml dulaglutide 3 mg/ml auto-injector (15 sources) GLP-1 Receptor Agonist Start: 07-05-2023 End: 10-03-2023 inject 1.5 mg by subcutaneous injection every week dulaglutide (Trulicity) 1.5 MG/0.5ML solution pen-injector Inject 1.5 mg under the skin 1 (one) time per week. 4 Pen 2 08/27/2023 10/03/2023 Discontinued (Side effects) Start: 06-08-2023 dulaglutide (T rulicity) 0.75 MG/0.5ML solution pen-injector Indications: Type 2 diabetes mellitus with diabetic polyneuropathy, with long-term current use of insulin ([facility]) ([facility]) , Class 2 obesity due to excess calories without serious comorbidity with body mass index (BMI) of 38.0 to 38.9 in adult Inject 0.75 mg under the skin 1 (one) time per week. 4 each 0 06/08/2023 Active emollients, topical (6 sources) Start: 05-02-2024 emollients, to pical Apply 1 artemio, Topical, BID, 0 Refill(s), Cream, 125 Start Date: 05/02/24 Status: Ordered Repeat number: 1 Start: 05-02-2024 emollients, to pical Apply 1 artemio, Topical, BID, 0 Refill(s), Cream, 125 Start Date: 05/02/24 Status: Ordered empagliflozin 10 mg oral tablet (20 sources) Sodium-Glucose Cotransporter 2 Inhibitor Start: 10-17-2023 End: 10-16-2024 take 1 tablet by mouth once daily empagliflozin (Jardiance) 10 MG Indications: Type 2 diabetes mellitus with diabetic polyneuropathy, with long-term current use of insulin (HCC) , Chronic renal disease, stage IV (HCC) Take 1 tablet (10 mg) by mouth daily. 30 tablet 2 12/26/2023 09/22/2024 Discontinued (Therapy completed) famotidine 20 mg oral tablet (2 sources) Histamine-2 Receptor Antagonist Start: 11-15-2020 End: 11-15-2020 famotidine (PEPCID) tablet 20 mg Start: 05-14-2020 End: 05-14-2020 famotidine (PEPCID) tablet 2 0 mg hydroCHLOROthiazide 25 mg / triamterene 37.5 mg oral tablet (20 sources) Potassium-sparing Diuretic, Thiazide Diuretic Start: 08-28-2022 End: 06-16-2025 take 1 tablet by mouth once daily triamterene-hydrochlorothiazide (Maxzide-25) 37.5-25 MG tablet Take 1 tablet by mouth daily. 08/28/2022 06/16/2025 Discontinued 24 hr metFORMIN hydrochloride 500 mg extended release oral tablet (20 sources) Biguanide Start: 03-16-2023 End: 05-09-2023 take 2 tablets by mouth twice daily metFORMIN XR (Glucophage-XR) 500 MG 24 hr tablet Take 2 tablets (1,000 mg) by mouth 2 times daily. 120 tablet 0 03/16/2023 04/09/2023 Discontinued Start: 01-15-2023 take 2 tablets by mo uth twice daily metFORMIN XR (Glucophage-XR) 500 MG 24 hr tablet Take 2 tablets (1,000 mg) by mouth 2 times daily. 120 tablet 0 01/15/2023 Active Start: 09-21-2022 End: 11-22-2022 take 2 tablets by mouth twice daily metFORMIN XR (Glucophage-XR) 500 MG 24 hr tablet take 2 tablets by mouth twice a day 120 tablet 1 11/22/2022 Active Start: 07-27-2021 take 2 tablets by mo uth twice daily metFORMIN (GLUCOPHAGE-XR) 500 MG extended release tablet Indications: Type 2 diabetes mellitus with diabetic polyneuropathy, without long-term current use of insulin (HCC) take 2 tablets by mouth twice a day 120 tablet 1 07/27/2021 Active Start: 05-31-2020 take 2 tablets by mo uth twice daily metFORMIN (GLUCOPHAGE-XR) 500 MG extended release tablet Indications: Type 2 diabetes mellitus with diabetic polyneuropathy, without long-term current use of insulin (HCC) take 2 tablets by mouth twice a day 120 tablet 5 05/31/2020 Active Start: 12-12-2019 take 2 tablets by mo uth twice daily metFORMIN (GLUCOPHAGE XR) 500 MG extended release tablet Indications: Type 2 diabetes mellitus with diabetic polyneuropathy, without long-term current use of insulin (HCC) Take 2 tablets by mouth 2 times daily 120 tablet 5 12/12/2019 Active Start: 05-02-2019 End: 06-01-2019 metFORMIN 1000 mg oral table t Dose : 1,000 mg = 1 tab(s), Oral, BID, # 60 tab(s), 0 Refill(s), Pharmacy: [facility] Start Date: 05/02/19 Stop Date: 06/01/19 Status: Ordered naproxen 500 mg oral tablet (2 sources) Nonsteroidal Anti-inflammatory Drug Start: 10-09-2018 End: 11-15-2020 take 1 tablet by mouth twice daily as needed for pain naproxen (NAPROSYN) 500 MG tablet Take 1 tablet by mouth 2 times daily as needed for Pain Take with food. 30 tablet 0 10/09/2018 11/15/2020 Discontinued (Patient Choice) Problems Active Problems Problem Classification Problem Date Documented Da te Episodic/Chronic Acute and unspecified renal failure (7 sources) Acute renal failure syndrome; Translations: [Acute kidney failure, unspecified] Onset: 4 Episodic Anal and rectal conditions (1 source) Ulcer of anorectal structure; Translations: [Ulcer of anus and rectum] Episodic Bacterial infection; unspecified site (3 sources) Streptococcus agalactiae infection; Translations: [Streptococcus, group B, as the cause of diseases classified elsewhere] Episodic Biliary tract disease (1 source) Disorder of biliary tract; Translations: [Other specified diseases of biliary tract] Onset: 4 Chronic Biliary tract disease (1 source) Calculus of bile duct; Translations: [Calculus of bile duct without cholangitis or cholecystitis without obstruction] Onset: 4 Episodic Cardiac dysrhythmias (20 sources) Unspecified atrial fibrillation; Translations: [Atrial flutter] Onset: 4 Chronic Cardiac dysrhythmias (1 source) Tachyarrhythmia ; Translations: [Tachycardia, unspecified] Onset: 2 Episodic Chronic kidney disease (20 sources) Chronic kidney disease stage 4; Translations: [Chronic kidney disease, stage 4 (severe)] Onset: 3 04-04-2023 Chronic Chronic kidney disease (2 sources) Chronic kidney disease; Translations: [Chronic kidney disease, stage 3b] Onset: 5 Chronic ulcer of skin (20 sources) Pressure ulcer of buttock stage 2; Translations: [Pressure ulcer of right buttock, stage 2] Onset: 4 Chronic Coagulation and hemorrhagic disorders (1 source) Thrombocytopenic disorder; Translations: [Thrombocytopenia, unspecified] Chronic Complication of device; implant or graft (1 source) Complication associated with genitourinary device; Translations: [Unspecified complication of genitourinary prosthetic device, implant and graft, initial encounter] Episodic Conduction disorders (2 sources) Bifascicular block; Translations: [Bifascicular block] Chronic Congestive heart failure; nonhypertensive (4 sources) Acute on chronic systolic heart failure; Translations: [Acute on chronic systolic (congestive) heart failure] Onset: 5 Chronic Deficiency and other anemia (3 sources) Anemia of chronic renal failure; Translations: [Anemia in chronic kidney disease] Chronic Deficiency and other anemia (1 source) Anemia in chronic kidney disease; Translations: [Anemia in chronic kidney disease] Onset: 5 Chronic Deficiency and other anemia (1 source) Anemia; Translations: [Anemia, unspecified] Onset: 4 Episodic Deficiency and other anemia (1 source) Hemoglobin low; Translations: [Anemia, unspecified] 06-16-2025 Episodic Deficiency and other anemia (2 sources) Anemia, unspecified; Translations: [Anemia, unspecified] Onset: 5 Episodic Diabetes mellitus with complications (20 sources) Diabetes mellitus; Translations: [Type 2 diabetes mellitus with other diabetic kidney complication] Onset: 2 09-04-2022 Chronic Diabetes mellitus without complication (20 sources) Type 2 diabetes mellitus; Translations: [Diabetes mellitus] Onset: 7 12-12-2019 Chronic Diabetes mellitus without complication (1 source) Hyperglycemia; Translations: [Hyperglycemia, unspecified] Onset: 4 Episodic Diseases of white blood cells (2 sources) Leukocytosis; Translations: [Elevated white blood cell count, unspecified] Onset: 4 Chronic Disorders of lipid metabolism (20 sources) Hyperlipidemia; Translations: [Hypercholesterolemia] Onset: 0 12-12-2019 Chronic E Codes: Adverse effects of medical drugs (1 source) Anticoagulant adverse reaction; Translations: [Adverse effect of anticoagulants, initial encounter] Episodic Esophageal disorders (20 sources) Gastroesophageal reflux disease; Translations: [Gastro-esophageal reflux disease without esophagitis] Onset: 7 08-27-2017 Chronic Essential hypertension (20 sources) Essential hypertension; Translations: [Essential (primary) hypertension] Onset: 8 05-15-2018 Chronic Fluid and electrolyte disorders (10 sources) Hyperkalemia; Translations: [Hyperkalemia] Onset: 5 04-06-2023 Episodic Gangrene (1 source) Gangrenous disorder; Translations: [Gangrene, not elsewhere classified] Episodic Gastrointestinal hemorrhage (1 source) Melena; Translations: [Melena] Episodic Genitourinary symptoms and ill-defined conditions (1 source) Device in situ; Translations: [Presence of urogenital implants] Chronic Headache; including migraine (1 source) Headache; Translations: [Headache, unspecified] Onset: 2 Episodic Hypertension with complications and secondary hypertension (4 sources) Hypertensive heart and renal disease with both (congestive) heart failure and renal failure; Translations: [Hypertensive heart and chronic kidney disease with heart failure and stage 1 through stage 4 chronic kidney disease, or unspecified chronic kidney disease] Onset: 5 Chronic Nonspecific chest pain (1 source) Chest pain; Translations: [Chest pain, unspecified] Episodic Open wounds of head; neck; and trunk (2 sources) Open wound of penis; Translations: [Unspecified open wound of penis, initial encounter] Episodic Osteoarthritis (20 sources) Osteoarthritis of joint of bilateral hands; Translations: [Primary osteoarthritis, right hand] Onset: 2 09-04-2022 Chronic Other connective tissue disease (1 source) Swelling of finger ; Translations: [Other specified soft tissue disorders] Episodic Other connective tissue disease (1 source) Pain in finger of left hand; Translations: [Pain in left finger(s)] Episodic Other connective tissue disease (6 sources) Pain in right foot; Translations: [Pain in right foot] Episodic Other connective tissue disease (1 source) Disorder of soft tissue; Translations: [Other specified soft tissue disorders] Episodic Other diseases of bladder and urethra (4 sources) Vesicocutaneous fistula; Translations: [Vesical fistula, not elsewhere classified] 12-09-2024 Chronic Other diseases of bladder and urethra (2 sources) Vesical fistula, not elsewhere classified; Translations: [Vesical fistula, not elsewhere classified] Onset: 5 Chronic Other injuries and conditions due to external causes (7 sources) Open wound of skin; Translations: [Other injury of unspecified body region, initial encounter] Onset: 5 06-16-2025 Episodic Other male genital disorders (1 source) Disorder of penis; Translations: [Other specified disorders of penis] Chronic Other male genital disorders (1 source) Pain in testicle; Translations: [Testicular pain, unspecified] Episodic Other nervous system disorders (1 source) Mononeuropathy of lower limb; Translations: [Unspecified mononeuropathy of unspecified lower limb] Chronic Other non-traumatic joint disorders (1 source) Charcot's joint of foot; Translations: [Charcot's joint, right ankle and foot] Chronic Other nutritional; endocrine; and metabolic disorders (20 sources) Obesity; Translations: [Other obesity due to excess calories] Onset: 0 12-12-2019 Chronic Other nutritional; endocrine; and metabolic disorders (20 sources) Obesity caused by energy imbalance; Translations: [Other obesity due to excess calories] Onset: 2 01-08-2023 Chronic Other nutritional; endocrine; and metabolic disorders (1 source) Obese class I; Translations: [Body mass index (BMI) 32.0-32.9, adult] Chronic Other nutritional; endocrine; and metabolic disorders (2 sources) Other obesity due to excess calories; Translations: [Other obesity due to excess calories] Onset: 4 Chronic Other nutritional; endocrine; and metabolic disorders (2 sources) Body mass index (BMI) 34.0-34.9, adult; Translations: [Body mass index (BMI) 34.0-34.9, adult] Onset: 4 Chronic Miranda-; endo-; and myocarditis; cardiomyopathy (except that caused by tuberculosis or sexually transmitted disease) (20 sources) Cardiomyopathy; Translations: [Other cardiomyopathies] Onset: 4 Chronic Pleurisy; pneumothorax; pulmonary collapse (1 source) Pleural effusion; Translations: [Pleural effusion, not elsewhere classified] Episodic Residual codes; unclassified (8 sources) Tobacco user; Translations: [Tobacco use] Onset: 2 Episodic Residual codes; unclassified (1 source) Noncompliance with treatment; Translations: [Patient's noncompliance with other medical treatment and regimen due to unspecified reason] Episodic Residual codes; unclassified (1 source) Influenza vaccination declined; Translations: [Immunization not carried out because of patient refusal] 09-22-2024 Episodic Respiratory failure; insufficiency; arrest (adult) (3 sources) Acute respiratory failure; Translations: [Acute respiratory failure, unspecified whether with hypoxia or hypercapnia] Onset: 4 Episodic Shock (3 sources) Septic shock; Translations: [Severe sepsis with septic shock] Onset: 4 Episodic Skin and subcutaneous tissue infections (4 sources) Infection of skin and/or subcutaneous tissue; Translations: [Local infection of the skin and subcutaneous tissue, unspecified] Episodic Substance-related disorders (20 sources) Nicotine dependence; Translations: [Nicotine dependence, cigarettes, uncomplicated] Onset: 01-08-2023 Chronic Unclassified (1 source) Obesity, class 1; Translations: [Obesity, class 1] Onset: Past or Other Problems Problem Classification Problem Date Documented Date Episodic/Chronic Genitourinary symptoms and ill-defined conditions (9 sources) Urinary symptoms ; Translations: [Unspecified symptoms and signs involving the genitourinary system] Onset: 01-13-2021 Resolved: 06-22-2021 06-22-2021 Episodic Inflammatory conditions of male genital organs (20 sources) Balanitis; Translations: [Balanitis] Onset: 04-06-2024 Resolved: 09-22-2024 Chronic Inflammatory conditions of male genital organs (10 sources) Claire's gangrene; 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] Onset: 04-30-2024 Episodic Malaise and fatigue (1 source) Other malaise; Translations: [Other malaise] Onset: 02-08-2025 Episodic Nausea and vomiting (1 source) Acute vomiting; Translations: [Vomiting, unspecified] Onset: 05-26-2021 Resolved: 06-22-2021 06-22-2021 Episodic Other aftercare (2 sources) group home (current) use of 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; 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 (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)] Onset: 09-22-2024 Episodic Other connective tissue disease (20 sources) Necrotizing fasciitis; Translations: [Necrotizing fasciitis] Onset: 09-22-2024 Episodic Other connective tissue disease (2 sources) Necrotizing fasciitis; Translations: [Necrotizing fasciitis (HCC)] Onset: 09-22-2024 Episodic Other lower respiratory disease (1 source) Cough; Translations: [Cough] Onset: 05-26-2021 Resolved: 06-25-2021 06-25-2021 Episodic Other male genital disorders (1 source) Personal history of other diseases of male genital organs; Translations: [Personal history of other diseases of male genital organs] Onset: 02-08-2025 Episodic Other nutritional; endocrine; and metabolic disorders (20 sources) Weight loss; Translations: [Abnormal weight loss] Onset: 07-17-2022 Resolved: 01-08-2023 01-08-2023 Episodic Other nutritional; endocrine; and metabolic disorders (13 sources) Weight decreased; Translations: [Abnormal weight loss] Onset: 07-17-2022 Resolved: 01-08-2023 01-08-2023 Episodic Other screening for suspected conditions (not mental disorders or infectious disease) (6 sources) Serum creatinine raised; Translations: [Other specified abnormal findings of blood chemistry] Onset: 09-22-2024 Episodic Residual codes; unclassified (20 sources) Dependent edema; Translations: [Edema, unspecified] Onset: 05-09-2022 09-04-2022 Episodic Residual codes; unclassified (20 sources) Early satiety; Translations: [Early satiety] Onset: 07-17-2022 Resolved: 09-22-2024 09-04-2022 Episodic Residual codes; unclassified (2 sources) Immunization not carried out because of patient refusal; Translations: [Immunization not carried out because of patient refusal] Onset: 09-22-2024 Episodic Septicemia (except in labor) (20 sources) Sepsis; Translations: [Sepsis, unspecified organism] Onset: 06-30-2024 Resolved: 09-22-2024 Episodic Unclassified (1 source) Exposure to 2019 novel coronavirus; Translations: [Contact with and (suspected) exposure to COVID19] Onset: 12-14-2021 Unclassified (1 source) Obesity, class 1; Translations: [Obesity, class 1] Onset: 09-22-2024 Results Test Name Value Interpretation Reference Range Facility [id number] 09-04-2025 [id number] Order placed for a r enal function panel. Normal [facility] Dialysis Vein Map PRE-OP SULAIMAN ATon 08-27-2025 Dialysis Vein Map PRE-OP BILAT [facility] [address] [place] [address] Dialysis Vein Map PRE-OP BILAT 08/27/25 0959 MR#: [id number] Acct: [id number] Name: GURINDER HAHN Rep #: [id number] : 1975 50 From: Madan Charles MD Attending Dr: Dr. Barby Webster MD Status: RE G CLI Ordering Dr: Barby Webster MD Date: 08/27/25 Location: [facility] Sex: M C Admitted: Reason For Study Reason For Study: CKD 3 Right Arm Left Arm Cephalic Vein at distal forearm measures 0.21 x 0.22 Cephalic Vein at distal forearm measures 0.26 x 0.29 cm. cm. Cephalic Vein at mid forearm measures 0.24 x 0.26 cm. Cephalic Vein at mid forearm measures 0.30 x 0.31 cm. Cephalic Vein proximal forearm measures 0.28 x 0.28 Cephalic Vein proximal forearm measures 0.31 x 0.34 cm. cm. Cephalic Vein distal upper arm measures 0.27 x 0.28 Cephalic Vein distal upper arm measures 0.29 x 0.33 cm. cm. Cephalic Vein at mid upper arm measures 0.21 x 0.21 Cephalic Vein at mid upper arm measures 0.23 x 0.25 cm. cm. Cephalic Vein at proximal upper arm measures 0.37 x Cephalic Vein at proximal upper arm measures 0.32 x 0.41 cm. 030 cm. Proximal Basilic vein measures 0.43 x 0.43 cm. Proximal Basilic vein measures 0.58 x 0.59 cm. Mid Basilic vein measures 0.41 x 0.41 cm. Mid Basilic vein measures 0.56 x 0.57 cm. Distal Basilic vein measures 0.40 x 0.40 cm. Distal Basilic vein measures 0.37 x 0.38 cm. Brachial artery measures 0.44 x 0.42 cm with a Brachial artery measures 0.44 x 0.45 cm with a velocity of 109.4 cm/sec. velocity of 83.4 cm/sec. Radial artery meausres 0.18 x 0.18 cm with a velocity Radial artery meausres 0.23 x 0.25 cm with a velocity of 82.2 cm/sec. of 79.4 cm/sec. Procedure This was a bilateral upper extremity venous doppler examination. Exam performed in department. VL/Dialysis Vein Map PRE-OP BILAT Interpretation Summary Bilateral upper extremity arteries patent with normal waveforms and measurements above. Bilateral upper extremity veins patent with measurements above. Ordering Physician: Barby Webster Referring Physician: Yany Adam Performed By: Nathalia Calvo RVT and Student ??? 08/27/25 1418 Date Madan Charles MD CC: PRODUCT ENGINEER-C Phoebe Adam; Dr. Barby Webster MD Date Dictated: 08/27/25958 Date Transcribed: 08/27/251417 Medical Record Coder: Signed [facility] [id number] 36 S: Patient spoke wit h CAC nurse regarding leg edema B: Onset of symptoms/concern 2 weeks A: Patient calling in with complaints of left leg swelling - swelling starts at patient's knee and now extends to ankle. Patient says at times swelling is severe. Patient able to ambulate with walker. Denies warmth to touch, redness, chest pain and shortness of breath. Patient wanting to make an appointment. R: Second level triage performed with Mike Olivera NP - per PRODUCT ENGINEER patient can be seen in office on Sunday. Appointment made with Mike Olivera on 08/17 at 2:00pm - OK to schedule per Mike Olivera. Insurance verified, covid screen negative. Patient understands care advice. No further needs at this time. Patient instructed to call back with new or worsening symptoms such as chest pain, shortness of breath, increased pain or warmth to touch. Reason for Disposition Thigh or calf pain and only 1 side and present > 1 hour Protocols used: Leg Swelling and [id number] [facility] 36on 07-13-2025 36 Reviewed chart. Refi ll not appropriate, too soon. RX refused [facility] 36 Reviewed chart. Refi ll not appropriate, too soon. RX refused [facility] 36 Sent 02/17/25 90 and 1 refill Pt should still have 30 days of medication left Please refuse mediction [facility] 36 Acetaminophen sent i n 07/09/25 60 tablets 3 refills Hysralazine sent 06/16/25 270 tablets Please refuse both meds [facility] 36on 07-09-2025 36 Prescription Request : Last medication check: 06/16/25 Last physical exam: 2020 Next scheduled appointment: 09/15/25 Last date of refill on this medication 06/12/25 60 tablets no refill [facility] 36on 06-18-2025 36 Spoke with pharmacy Please send in new RX for the Quik Pen. Pended new rx please verify correct order/dose. Also pended pen tips. [facility] 36on 06-16-2025 36 The pen [facility] 36 Name of caller: DINA Contact phone number: [phone] Relationship to Patient: Pharmacy Provider: Practice: [facility] Chief Complaint/Reason for Call: Pharmacy calling for clarification on insulin lispro (HumaLOG) 100 UNIT/ML pen cartridge. Patient does not have a reusable pen at home so what this supposed to be the Quik Pen? Please advise. Best time of day caller can be reached: any Patient advised that office/PCP has 24-48 business hours to return their call: no [facility] 37on 06-16-2025 37 We can make adjustme nts to insulin every 3 days. Please send in fasting and 2 hour post meal glucose readings every 3 days. [facility] Office Visiton 06-16-2025 Follow-up visit [id number] Gurinder Hahn 1975 M Date Provider Department Center 06/16/2025 [id number] OLIVERA [facility] Family History Adopted: Yes Problem Relation Age of Onset No Known Problems Mother High Blood Pressure Father Heart disease Father COPD Father Diabetes Father Family Status - Relation Status Age at Mother Father Level of Service:87230 RI OFFICE/OUTPATIENT ESTABLISHED MOD MDM 30 MIN Reason for Visit and Comments: Diabetes [34] [facility] Progress Noteon 06-16-2025 Progress Note Recommend continue t o monitor. Warm compresses couple times a day to promote drainage. Advised to follow-up if increased swelling or redness or pain occurs. Normal [facility] Progress Note Poorly controlled. C heck hemoglobin A1c today. Restart Lantus at 10 units daily, Humalog 5 units with meals 3 times a day. Send glucose readings every 3 days for titration of insulin Normal [facility] Progress Note Stable. Restart metoprolol XL at 25 mg daily Normal [facility] Progress Note Managed by nephrology. Normal [facility] Progress Note Control unknown. Rashmi ck hemoglobin A1c. Normal [facility] Progress Note Initial elevated. Re sume hydralazine 50 mg 3 times daily, metoprolol 25 mg XL daily. Hold hydralazine on days of dialysis Normal [facility] Progress Note Continue fenofibrate 145 mg daily, rosuvastatin 10 mg daily. Normal [facility] Progress Note Restart mack Blackburn back on the metoprolol XR at 25 mg daily [facility] Progress Note 06/16/2025 Guridner Hahn (: 1975) is a 50 y.o. male , Established patient, here for evaluation of the following chief complaint(s): Diabetes ASSESSMENT/PLAN: 1. Type 2 diabetes mellitus with diabetic polyneuropathy, with long-term current use of insulin ([facility]) Assessment & Plan: Poorly controlled. Check hemoglobin A1c today. Restart Lantus at 10 units daily, Humalog 5 units with meals 3 times a day. Send glucose readings every 3 days for titration of insulin Orders: - Hemoglobin A1c - Lantus SoloStar 100 UNIT/ML pen; inject 10 units subcutaneously in the morning., Normal - gabapentin (Neurontin) 300 MG capsule; Take 1 capsule (300 mg) by mouth Nightly., Starting Sun06/16/2025, Normal - insulin lispro (HumaLOG) 100 UNIT/ML pen cartridge; Inject 5 Units under the skin 3 times daily (with meals)., Starting Sun06/16/2025, Normal 2. Chronic renal disease, stage IV ([facility]) Assessment & Plan: Managed by nephrology. Orders: - Basic metabolic panel 3. Low hemoglobin - CBC auto differential 4. Cardiomyopathy, unspecified type ([facility]) Assessment & Plan: Stable. Restart metoprolol XL at 25 mg daily Orders: - metoprolol succinate XL (Toprol-XL) 25 MG 24 hr tablet; Take 1 tablet (25 mg) by mouth daily. Do not crush or chew., Starting Sun06/16/2025, Until 12/13/2025, Normal - hydrALAZINE (Apresoline) 50 MG tablet; Take 1 tablet (50 mg) by mouth 3 times daily., Starting Sun06/16/2025, Normal 5. 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) Assessment & Plan: Control unknown. Check hemoglobin A1c. Orders: - Lantus SoloStar 100 UNIT/ML pen; inject 10 units subcutaneously in the morning., Normal - glucose blood (True Metrix Blood Glucose Test) test strip; use 1 TEST STRIP to TEST BLOOD SUGAR twice a day, Normal 6. Essential hypertension Assessment & Plan: Initial elevated. Resume hydralazine 50 mg 3 times daily, metoprolol 25 mg XL daily. Hold hydralazine on days of dialysis Orders: - hydrALAZINE (Apresoline) 50 MG tablet; Take 1 tablet (50 mg) by mouth 3 times daily., Starting Sun06/16/2025, Normal 7. Hyperlipidemia LDL goal <70 Assessment & Plan: Continue fenofibrate 145 mg daily, rosuvastatin 10 mg daily. 8. Paroxysmal atrial fibrillation (HCC) Assessment & Plan: Restart Eliquis, start back on the metoprolol XR at 25 mg daily Orders: - metoprolol succinate XL (Toprol-XL) 25 MG 24 hr tablet; Take 1 tablet (25 mg) by mouth daily. Do not crush or chew., Starting Sun06/16/2025, Until Sun12/13/2025, Normal - Eliquis 5 MG tablet; Take 1 tablet (5 mg) by mouth 2 times daily., Starting Sun06/16/2025, Normal 9. Open wound of skin Assessment & Plan: Recommend continue to monitor. Warm compresses couple times a day to promote drainage. Advised to follow-up if increased swelling or redness or pain occurs. Follow up for 3 month [facility]. SUBJECTIVE/OBJECTIVE: [facility] - Gurinder Hahn (: 1975) is a 50 y.o. male , Established patient, here for the evaluation of the following chief complaint(s): Diabetes Presents for follow-up diabetes. He is noncompliant with his medications. Patient was last seen in office last fall and has had a couple of hospital admissions since then and has been started on hemodialysis. Reports that he is having a lot of high glucose. Has lantus and humalog. Reports that it has been awhile since he used it. 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 Reports his sugars have been in the high 200s and denies any hypoglycemic episodes. It drinking more water and trying to watch what he is eating. M,W,F- dialysis in [place]. Is tired after dialysis Goes Jun 23 for mapping for dialysis fistula. Reports that he is not taking the eliquis or metoprolol-he also stopped his amlodipine and hydralazine 50 mg 3 times a day. Reports his blood pressures have been lower on dialysis days Urology-was seeing for a fistula to skin. Was going to have surgery but it is on hold due to going on dialysis. Neuropathy-reports that the gabapentin at bedtime is very helpful. Patient also recently was treated for skin infection on the back of the neck. Reports he had taken cephalexin for several days and reports that it feels much better and is no longer painful. He did have some drainage from the area, denies any fever or chills Current Medications[1] Review of Systems Constitutional: Positive for fatigue. Negative for activity change, appetite change and fever. HENT: Negative. Respiratory: Negative. Cardiovascular: Positive for leg swelling (Reports at baseline). Negative for chest pain and palpitations. Gastrointestinal: Negative. Genitourinary: Negative for difficulty urinating. Neurological: Negative. Psychiatric/Behavioral: Negative. Vitals: 06/16/25 1318 06/16/25 1423 BP: (!) 157/96 128/82 Pulse: 101 87 Resp: 20 Temp: 36.8 ?C (98.3 ?F) TempSrc: Infrared SpO2: 9 (more content not included)... Normal [facility] Progress Note Patient was identifi ed by name and Date of . Health Maintenance Due Topic Echocardiogram- Diabetes: Dental Exam- Diabetes: Retinopathy Screening- Normal [facility] 36on 06-12-2025 36 Reviewed chart. Refi ll appropriate. RX sent. [facility] 36 Reviewed chart. Refi ll appropriate. RX sent. [facility] 36 Prescription Request : Last medication check: 09/22/24 Last physical exam: 2020 Next scheduled appointment: 06/16/25 Last date of refill on this medication 05/21/25 60 tablets no refills [place] [id number] Prescription Request : Last medication check: 09/22/24 Last physical exam: 2020 Next scheduled appointment: 06/16/25 Last date of refill on this medication 01/29/25 30 tablets [address] 06-10-2025 36 Rx sent for enough tablets to last him until his upcoming appointment on 06/16/25. OARRS report reviewed with no discrepancies. CSA signed September 2024. [address] 06-04-2025 36 Scheduled 06/08/[address] 05-25-2025 36 Unable to fill prescription. This is considered a controlled substance. Patient has not been seen in office since September 2024. Has canceled multiple appointments. Recommend he follow-up as he is scheduled [place] [id number] Prescription Request : Last medication check: 09/22/24 Last physical exam: 01/08/23 Next scheduled appointment: 06/08/25 CSA on file (date): 09/22/24 Last urine drug screen: NA Last date of refill on this medication 04/27/[address] 05-21-2025 36 Reviewed chart. Refi ll appropriate. RX sent. [place] [id number] Prescription Request : Last medication check: 09/22/24 Last physical exam: 01/08/23 Next scheduled appointment: 06/08/25 Last date of refill on this medication 04/16/25 60 tablets no refills [address] 05-04-2025 36 Noted. Thank you. [place] [id number] Luz I just wanted you to be aware of this - Gabapentin refused by Dr Jackson due to pt needs to be seen. LM and sent mychart message to pt to be sure to come in for 05/13/25 appt [place] [address] Lm and sent mychart message that script will not be sent until pt is seen. [address] 04-28-2025 36 Prescription Request : Continuous Glucose Sensor (FreeStyle Yanni 3 Sensor) [facility] [place] Last medication check: none Last physical exam: none Next scheduled appointment: 05/13/25 Last date of refill on this medication 11/10/24 ( qty 2 refill 5) [address] 04-27-2025 36 Already refilled prescription in a separate encounter. [facility] 36 Rx sent. OARRS repor t reviewed with no discrepancies. CSA signed in September 2024. Follow up as scheduled. [place] [id number] Prescription Request : GABAPENTIN 300 MG CAPSULE Last medication check: 09/22/24 ? Last physical exam: None Next scheduled appointment: 05/13/25 CSA on file (date): 02/27/25 Last date of refill on this medication 03/26/25 ( qty 30 refill 0) [address] 04-24-2025 36 Rx sent. Follow up a s scheduled. [address] 04-23-2025 36 Refused, needs to be seen [place] [address] Prescription Request : Last medication check: 09/22/24 Last physical exam: 2020 Next scheduled appointment: 05/13/25 CSA on file (date): 09/22/24 Last urine drug screen: none Last date of refill on this medication 03/26/25 30 and no refill [facility] [id number] 04-16-2025 [id number] Pended a Chorhexidin e gluconate dressing [address] 04-16-2025 36 Rx sent [place] [address] FYI-This is the 2nd [employer] message sent. [place] [address] This medication was sent to [facility] 03/16/25 with 5 refills [place] [address] Prescription Request : Last medication check: 09/22/24 Last physical exam: none Next scheduled appointment: 05/13/25 Last date of refill on this medication 02/17/25 60 tablets no refill [address] 04-14-2025 36 Called the patient---informed him that no further meds would be sent in until he is seen. Patient was upset that he only has one car, his girlfriend has to go to work and he has dialysis on Sunday, Sunday and Sunday and that we close at 4pm. I asked him what time it is he stated at 11am. I told him that we would get him in on one of those dates early since he would have a ride on those days. I scheduled him for 05-13-25 at 8:20 with Luz Olivera. I told him I would ask if meds would be sent in and that he needs to work it out to be here in order to continue meds. [place] [address] Refused. Needs to be seen. [place] [address] Prescription Request : Last medication check: 09-22-24 Last physical exam: n/a Next scheduled appointment: none The patient has cancelled the last 8 appointments that have been scheduled CSA on file (date): 09-22-24 Last urine drug screen: none Last date of refill on this medication 03-26-[address] 03-26-2025 36 Rx sent, OARRS repor t done, no inconsistencies, CS agreement in place [place] [address] Prescription Request : GABAPENTIN 300 MG CAPSULE Last medication check: 09/22/24 Last physical exam: none Next scheduled appointment: none CSA on file (date): 02/27/25 Last date of refill on this medication 02/27/25 ( qty 30 refill 0) [address] 03-16-2025 36 Rx sent. Follow up a s scheduled. [place] [phone] Prescription Request : OMEPRAZOLE DR 40 MG CAPSULE Last medication check: 09/22/24 Last physical exam: none Next scheduled appointment: 03/19/25 ( physical Last date of refill on this medication 12/08/24 ( qty 60 refill 2) [facility] BUN 03-16-2025 Urea nitrogen [Mass/Vol] 23 mg/dL High 4- [facility] Comment on above: Performed By: #### L 501.5300, L501.2300, L501.6100, L100.0100, L501.5600, L501.1000, L501.1105, L501.5900 #### [facility] [address] [place], [address] CBC W/Diff, Automatedon 04- Absolute Lymph 1.95 X10 3/uL Normal 0.83-4.51 [facility] Comment on above: Performed By: #### L 501.5300, L501.2300, L501.6100, L100.0100, L501.5600, L501.1000, L501.1105, L501.5900 #### [facility] [address] [place], [address] Absolute Neut 7.0 X10 3/uL Normal 2.0-7.7 [facility] Comment on above: Performed By: #### L 501.5300, L501.2300, L501.6100, L100.0100, L501.5600, L501.1000, L501.1105, L501.5900 #### [facility] [address] [place], [address] Basophils/100 WBC (Bld) 0.7 % Normal 0-1 [facility] Comment on above: Performed By: #### L 501.5300, L501.2300, L501.6100, L100.0100, L501.5600, L501.1000, L501.1105, L501.5900 #### [facility] [address] [place], [address] Eosinophils/100 WBC (Bld) 4.9 % Normal 0-5 [facility] Comment on above: Performed By: #### L 501.5300, L501.2300, L501.6100, L100.0100, L501.5600, L501.1000, L501.1105, L501.5900 #### [facility] [address] [place], [address] Erythrocyte distribution width (RBC) [Ratio] 18.7 % High 11.6-14.6 [facility] Comment on above: Performed By: #### L 501.5300, L501.2300, L501.6100, L100.0100, L501.5600, L501.1000, L501.1105, L501.5900 #### [facility] [address] [facility] [place], [address] Hematocrit (Bld) [Volume fraction] 29.1 % Low 40-54 [facility] Comment on above: Performed By: #### L 501.5300, L501.2300, L501.6100, L100.0100, L501.5600, L501.1000, L501.1105, L501.5900 #### [facility] [address] [place], [address] (227) Hemoglobin (Bld) [Mass/Vol] 9.0 g/dL Low 13.0-16.5 [facility] Comment on above: Performed By: #### L 501.5300, L501.2300, L501.6100, L100.0100, L501.5600, L501.1000, L501.1105, L501.5900 #### [facility] [address] [facility] [place], [address] IG% 1.100 High 0.0-0.9 [facility] Comment on above: Result Comment: IG% - Immature Granulocytes (promyelocytes, myelocytes and metamyelocytes) > 1% indicates that a LEFT SHIFT is Present. Performed By: #### L 501.5300, L501.2300, L501.6100, L100.0100, L501.5600, L501.1000, L501.1105, L501.5900 #### [facility] [address] [place], [address] Lymphocytes/100 WBC (Bld) 18.2 % Low 19-41 [facility] Comment on above: Performed By: #### L 501.5300, L501.2300, L501.6100, L100.0100, L501.5600, L501.1000, L501.1105, L501.5900 #### [facility] [address] [place], [address] MCH (RBC) [Entitic mass] 25.1 pg Low 27.0-32.0 [facility] Comment on above: Performed By: #### L 501.5300, L501.2300, L501.6100, L100.0100, L501.5600, L501.1000, L501.1105, L501.5900 #### [facility] [address] [place], [address] MCHC (RBC) [Mass/Vol] 30.9 g/dL Low 32-36 [facility] Comment on above: Performed By: #### L 501.5300, L501.2300, L501.6100, L100.0100, L501.5600, L501.1000, L501.1105, L501.5900 #### [facility] [address] [place], [address] MCV (RBC) [Entitic vol] 81.3 fL Normal 80-94 [facility] Comment on above: Performed By: #### L 501.5300, L501.2300, L501.6100, L100.0100, L501.5600, L501.1000, L501.1105, L501.5900 #### [facility] [address] [place], [address] Monocytes/100 WBC (Bld) 9.3 % Normal 0-10 [facility] Comment on above: Performed By: #### L 501.5300, L501.2300, L501.6100, L100.0100, L501.5600, L501.1000, L501.1105, L501.5900 #### [facility] [address] [place], [address] Neutrophils/100 WBC (Bld) 65.8 % Normal 47-70 [facility] Comment on above: Performed By: #### L 501.5300, L501.2300, L501.6100, L100.0100, L501.5600, L501.1000, L501.1105, L501.5900 #### [facility] [address] [place], [address] Nucleated RBC (Bld) [#/Vol] 0 10*3/uL Normal 0-5 [facility] Comment on above: Performed By: #### L 501.5300, L501.2300, L501.6100, L100.0100, L501.5600, L501.1000, L501.1105, L501.5900 #### [facility] [address] [facility] [place], [address] Platelet mean volume (Bld) [Entitic vol] 10.9 fL Normal 6.2-12.0 [facility] Comment on above: Performed By: #### L 501.5300, L501.2300, L501.6100, L100.0100, L501.5600, L501.1000, L501.1105, L501.5900 #### [facility] [address] [facility] [place], [address] Platelets (Bld) [#/Vol] 272 10*3/uL Normal 150-450 [facility] Comment on above: Performed By: #### L 501.5300, L501.2300, L501.6100, L100.0100, L501.5600, L501.1000, L501.1105, L501.5900 #### [facility] [address] [place], [address] RBC (Bld) [#/Vol] 3.58 10*6/uL Low 4.6-6.2 [facility] Comment on above: Performed By: #### L 501.5300, L501.2300, L501.6100, L100.0100, L501.5600, L501.1000, L501.1105, L501.5900 #### [facility] [address] [place], [address] RDW SD 55.2 fl High 35.1-43.9 [facility] Comment on above: Performed By: #### L 501.5300, L501.2300, L501.6100, L100.0100, L501.5600, L501.1000, L501.1105, L501.5900 #### [facility] [address] [place], [address] WBC (Bld) [#/Vol] 10.7 10*3/uL Normal 4.4-11.0 [facility] Comment on above: Performed By: #### L 501.5300, L501.2300, L501.6100, L100.0100, L501.5600, L501.1000, L501.1105, L501.5900 #### [facility] [address] [place], [address] Carbon Dioxideon 03-16-2025 CO2 [Moles/Vol] 23.7 mmol/L Normal 21.0-32.0 [facility] Comment on above: Performed By: #### L 501.5300, L501.2300, L501.6100, L100.0100, L501.5600, L501.1000, L501.1105, L501.5900 #### [facility] [address] [place], [address] Chlorideon 03-16-2025 Chloride [Moles/Vol] 98 mmol/L Normal 98-108 [facility] Comment on above: Performed By: #### L 501.5300, L501.2300, L501.6100, L100.0100, L501.5600, L501.1000, L501.1105, L501.5900 #### [facility] [address] [place], [address] Phosphoruson 03-16-2025 Phosphate [Mass/Vol] 3.7 mg/dL Normal 2.7-4.5 [facility] Comment on above: Performed By: #### L 501.5300, L501.2300, L501.6100, L100.0100, L501.5600, L501.1000, L501.1105, L501.5900 #### [facility] [address] [place], [place], [id number] Potassiumon 03-16-2025 Potassium [Moles/Vol] 4.2 mmol/L Normal 3.3-5.1 [facility] Comment on above: Performed By: #### L 501.5300, L501.2300, L501.6100, L100.0100, L501.5600, L501.1000, L501.1105, L501.5900 #### [facility] [address] [place], [place], [id number] Serum Creatinine AND GFRon 0 03-16-2025 Creatinine [Mass/Vol] 3.25 mg/dL High 0.70-1.20 [facility] Comment on above: Performed By: #### L 501.5300, L501.2300, L501.6100, L100.0100, L501.5600, L501.1000, L501.1105, L501.5900 #### [facility] [address] [facility] [place], [place], [id number] GFR/1.73 sq M.predicted among non-blacks MDRD (S/P/Bld) [Vol rate/Area] 23 mL/min/{1.73_m2} Low >60 [facility] Comment on above: Result Comment: mL/m in/1.73m2 CKD-EPI Creatinine Equation (2020) Performed By: #### L 501.5300, L501.2300, L501.6100, L100.0100, L501.5600, L501.1000, L501.1105, L501.5900 #### [facility] [address] [place], [address] Sodium Levelon 03-16-2025 Sodium [Moles/Vol] 137 mmol/L Normal 133-145 [facility] Comment on above: Performed By: #### L 501.5300, L501.2300, L501.6100, L100.0100, L501.5600, L501.1000, L501.1105, L501.5900 #### [facility] [address] [place], [address] [id number] 02-27-2025 [id number] I called pt and he h as already been scheduled for 03/10/25 with Luz [facility] 36on 02-27-2025 36 Noted. Thank you. [place] [address] Please reach out and assist in getting an appointment scheduled. I cannot provide recommendations without knowing current medications and doses. He is past due for physical and would prefer this to be scheduled as a physical. [facility] 36 Scheduled for 03/10 @3:20pm pt states he's in Dialysis m-w-f and his gf doesn't get out of work until 3pm ( she's his ride) he maybe a little late. [place] [address] MyChart messaged pt refill was sent in and to schedule Physical [place]. Will call when appropriate. [place] [address] Rx sent. OARRS repor t reviewed with no discrepancies. CSA signed September 2024. Needs to schedule a physical in the office [place]. Has not been seen in the office since September. [place] [address] Prescription Request : GABAPENTIN 300 MG CAPSULE Last medication check: 09/22/24 Last physical exam: Doesn't look like he's had one with us. Next scheduled appointment: none CSA on file (date): 09/22/24 Last urine drug screen: 09/22/24 Last date of refill on this medication 01/27/25 ( qty 30 refill 0) [facility] 36on 02-17-2025 36 Refused, gabapentin is not due until the [place] [address] Rx sent Normal [facility] 36 Prescription Request : Last medication check: 09/22/2024 Last physical exam: none Next scheduled appointment: none CSMA: 09/22/2024 Last date of refill on this medication: Normal [facility] 36 Prescription Request : Last medication check: 09/22/2024 Last physical exam: none Next scheduled appointment: none Last date of refill on this medication: Tylenol: 12/22/2024 Rosuvastatin: Normal [facility] .Auto Diffon 02-15-2025 Basophil, Absolute 0.0 10 3/mcL Normal 0.0-0.3 [facility] Comment on above: Performed By: #### C BC, GFR, ANEU, BMP, ADIFF #### [address] [address] Basophils/100 WBC (Bld) 0.2 % Normal 0.0-2.5 [facility] Comment on above: Performed By: #### C BC, GFR, ANEU, BMP, ADIFF #### [address] [address] Eosinophil, Absolute 0.0 10 3/mcL Normal 0.0-0.7 [facility] Comment on above: Performed By: #### C BC, GFR, ANEU, BMP, ADIFF #### [address] [address] Eosinophils/100 WBC (Bld) 0.0 % Normal 0.0-6.0 [facility] Comment on above: Performed By: #### C BC, GFR, ANEU, BMP, ADIFF #### [address] [address] Lymphocyte, Absolute 0.7 10 3/mcL Low 0.9-4.3 [facility] Comment on above: Performed By: #### C BC, GFR, ANEU, BMP, ADIFF #### [address] [address] Lymphocytes/100 WBC (Bld) 8.2 % Low 20.0-40.0 [facility] Comment on above: Performed By: #### C BC, GFR, ANEU, BMP, ADIFF #### [address] [address] Monocyte, Absolute 0.7 10 3/mcL Normal 0.1-1.4 [facility] Comment on above: Performed By: #### C BC, GFR, ANEU, BMP, ADIFF #### [address] [address] Monocytes/100 WBC (Bld) 7.3 % Normal 2.0-13.0 [facility] Comment on above: Performed By: #### C BC, GFR, ANEU, BMP, ADIFF #### [address] [address] Neutrophils/100 WBC (Bld) 84.3 % High 50.0-75.0 [facility] Comment on above: Performed By: #### C BC, GFR, ANEU, BMP, ADIFF #### [address] [address] .GFRon 02-15-2025 Estimated Glomerular Filtration Rate 18 ml/min/1.73sqm Normal [facility] Comment on above: Result Comment: Stages of Chronic Kidney Disease (CKD) Stage Description eGFR(ml/min/1.73 sq.m.) CKD 1 Normal kidney function or >=90 normal kindney function with possible kidney damage (ex. Proteinuria) CKD 2 Kidney damage with mild loss 60-89 of kidney function CKD 3a Mild to moderate loss of kidney 45-59 function CKD 3b Moderate to severe loss of 30-44 of kindey function CKD 4 Severe loss of kidney function 15-29 CKD 5 Kidney failure <15 Note: (go live 2024) the eGFR calculation was updated to the 2020 CKD-EPI creatinine equation without a race factor to calculate the eGFR results. Performed By: #### C BC, GFR, ANEU, BMP, ADIFF #### [address] [address] .NEUABSon 02-15-2025 Neutrophil, Absolute 7.6 10 3/mcL Normal 2.3-8.1 [facility] Comment on above: Performed By: #### C BC, GFR, ANEU, BMP, ADIFF #### [address] [address] BMPon 02-15-2025 BUN/Creatinine Ratio 10.2 ratio Normal 10.0-22.0 [facility] Comment on above: Performed By: #### C BC, GFR, ANEU, BMP, ADIFF #### [address] [address] Calcium [Mass/Vol] 8.4 mg/dL Low 8.7-10.4 [facility] Comment on above: Performed By: #### C BC, GFR, ANEU, BMP, ADIFF #### [address] [address] Chloride [Moles/Vol] 102 mmol/L Normal 98-110 [facility] Comment on above: Performed By: #### C BC, GFR, ANEU, BMP, ADIFF #### [address] [address] CO2 [Moles/Vol] 22 mmol/L Normal 22-32 [facility] Comment on above: Performed By: #### C BC, GFR, ANEU, BMP, ADIFF #### [address] [address] Creatinine [Mass/Vol] 3.93 mg/dL High 0.60-1.40 [facility] Comment on above: Result Comment: Test ing performed on [employer] analyzer using enzymatic creatinine methodology. Performed By: #### C BC, GFR, ANEU, BMP, ADIFF #### [address] [address] Electrolyte Balance 10.0 mEq/L Normal 4.0-15.0 [facility] Comment on above: Performed By: #### C BC, GFR, ANEU, BMP, ADIFF #### [address] [address] Glucose [Mass/Vol] 405 mg/dL Critically abnormal 70-110 [facility] Comment on above: Performed By: #### C BC, GFR, ANEU, BMP, ADIFF #### [address] [address] Potassium [Moles/Vol] 5.0 mmol/L Normal 3.5-5.0 [facility] Comment on above: Performed By: #### C BC, GFR, ANEU, BMP, ADIFF #### [place] [address] Sodium [Moles/Vol] 134 mmol/L Low 136-145 [facility] Comment on above: Performed By: #### C BC, GFR, ANEU, BMP, ADIFF #### [place] [address] Urea nitrogen [Mass/Vol] 40.0 mg/dL High 8.0-22.0 [facility] Comment on above: Performed By: #### C BC, GFR, ANEU, BMP, ADIFF #### [place] [id number] CBCon 02-15-2025 Erythrocyte distribution width (RBC) [Ratio] 23.7 % High 11.5-15.5 [facility] Comment on above: Performed By: #### C BC, GFR, ANEU, BMP, ADIFF #### [place] [address] Hematocrit (Bld) [Volume fraction] 31.7 % Low 40.0-52.0 [facility] Comment on above: Performed By: #### C BC, GFR, ANEU, BMP, ADIFF #### [place] [address] Hgb 10.0 G/dL Low 13.0-17.5 [facility] Comment on above: Performed By: #### C BC, GFR, ANEU, BMP, ADIFF #### [place] [address] MCH (RBC) [Entitic mass] 24.7 pg Low 27.0-33.0 [facility] [facility] Comment on above: Performed By: #### C BC, GFR, ANEU, BMP, ADIFF #### [place] [address] MCHC 31.6 G/dL Low 32.0-36.0 [facility] Comment on above: Performed By: #### C BC, GFR, ANEU, BMP, ADIFF #### [place] [id number] MCV (RBC) [Entitic vol] 78.2 fL Low 81.0-100.0 [facility] Comment on above: Performed By: #### C BC, GFR, ANEU, BMP, ADIFF #### [address] [address] Platelet 186 10 3/mcL Normal 150-450 [facility] Comment on above: Performed By: #### C BC, GFR, ANEU, BMP, ADIFF #### [place] [id number] [address] [place] [address] Platelet mean volume (Bld) [Entitic vol] 8.1 fL Normal 6.4-10.5 [facility] Comment on above: Performed By: #### C BC, GFR, ANEU, BMP, ADIFF #### [address] [address] RBC 4.06 10 6/mcL Low 4.50-6.00 [facility] Comment on above: Performed By: #### C BC, GFR, ANEU, BMP, ADIFF #### [address] [address] WBC 9.0 10 3/mcL Normal 4.5-10.8 [facility] Comment on above: Performed By: #### C BC, GFR, ANEU, BMP, ADIFF #### [address] [address] LABORATORYOrdered By: Janel Colmenares on 02-15-2025 Glucose [Mass/Vol] 262 mg/dL High 70 - 110 mg/dL [facility] Work Phone: Glucose [Mass/Vol] 355 mg/dL High 70 - 110 mg/dL [facility] Work Phone: LABORATORYOrdered By: Orly Saucedo on 02-15-2025 Glucose [Mass/Vol] 299 mg/dL High 70 - 110 mg/dL [facility] Work Phone: LABORATORYOrdered By: SYSTEM SYSTEM on 02-15-2025 Basophils (Bld) [#/Vol] 0.0 103/mcL Normal 0.0 - 0.3 10^3/mcL AH Workflow SS Basophils/100 WBC (Bld) 0.2 % Normal 0.0 - 2.5 % Workflow SS Calcium [Mass/Vol] 8.4 mg/dL Low 8.7 - 10. 4 mg/dL ADM SS Chloride [Moles/Vol] 102 mmol/L Normal 98 - 11 0 mEq/L ADM SS CO2 [Moles/Vol] 22 mmol/L Normal 22 - 32 mEq/L ADM SS Creatinine [Mass/Vol] 3.93 mg/dL High 0.60 - 1.40 mg/dL ADM SS Comment on above: Interpretive Data: T esting performed on [employer] analyzer using enzymatic creatinine methodology. Electrolyte Balance 10.0 mEq/L Normal 4.0 - 15 .0 mEq/L ADM SS Eosinophils (Bld) [#/Vol] 0.0 103/mcL Normal 0.0 - 0.7 10^3/mcL Workflow SS Eosinophils/100 WBC (Bld) 0.0 % Normal 0.0 - 6.0 % Workflow SS Erythrocyte distribution width (RBC) [Ratio] 23.7 % High 11.5 - 15.5 % Workflow SS Estimated Glomerular Filtration Rate 18 ml/min/1.73sqm Invalid Interpretation Code Chemistry S Comment on above: Interpretive Data: Stages of Chronic Kidney Disease (CKD) Stage Description eGFR(ml/min/1.73 sq.m.) CKD 1 Normal kidney function or >=90 normal kindney function with possible kidney damage (ex. Proteinuria) CKD 2 Kidney damage with mild loss 60-89 of kidney function CKD 3a Mild to moderate loss of kidney 45-59 function CKD 3b Moderate to severe loss of 30-44 of kindey function CKD 4 Severe loss of kidney function 15-29 CKD 5 Kidney failure <15 Note: (go live 2024) the eGFR calculation was updated to the 2020 CKD-EPI creatinine equation without a race factor to calculate the eGFR results. Glucose [Mass/Vol] 405 mg/dL Invalid Interpretation Code 70 - 110 mg/dL ADM SS Hematocrit (Bld) [Volume fraction] 31.7 % Low 40.0 - 52.0 % Workflow SS Hemoglobin (Bld) [Mass/Vol] 10.0 G/dL Low 13.0 - 17.5 G/dL Workflow SS Lymphocytes (Bld) [#/Vol] 0.7 103/mcL Low 0.9 - 4.3 10^3/mcL AH Workflow SS Lymphocytes/100 WBC (Bld) 8.2 % Low 20.0 - 40.0 % AH Workflow SS MCH (RBC) [Entitic mass] 24.7 pg Low 27.0 - 33.0 pg AH Workflow SS MCHC 31.6 G/dL Low 32.0 - 36.0 G/dL AH Workflow SS MCV (RBC) [Entitic vol] 78.2 fL Low 81.0 - 100.0 fL AH Workflow SS Monocytes (Bld) [#/Vol] 0.7 103/mcL Normal 0.1 - 1.4 10^3/mcL AH Workflow SS Monocytes/100 WBC (Bld) 7.3 % Normal 2.0 - 13.0 % AH Workflow SS Neutrophils (Bld) [#/Vol] 7.6 103/mcL Normal 2.3 - 8.1 10^3/mcL AH Workflow SS Neutrophils/100 WBC (Bld) 84.3 % High 50.0 - 75.0 % AH Workflow SS Platelet mean volume (Bld) [Entitic vol] 8.1 fL Normal 6.4 - 10.5 fL AH Workflow SS Platelets (Bld) [#/Vol] 186 103/mcL Normal 150 - 450 10^3/mcL AH Workflow SS Potassium [Moles/Vol] 5.0 mmol/L Normal 3.5 - 5.0 mEq/L AH ADM SS RBC (Bld) [#/Vol] 4.06 106/mcL Low 4.50 - 6.00 10^6/mcL AH Workflow SS Sodium [Moles/Vol] 134 mmol/L Low 136 - 145 mEq/L AH ADM SS Urea nitrogen [Mass/Vol] 40.0 mg/dL High 8.0 - 22.0 mg/dL AH ADM SS Urea nitrogen/Creatinine [Mass ratio] 10.2 ratio Normal 10.0 - 22.0 ratio AH ADM SS WBC (Bld) [#/Vol] 9.0 103/mcL Normal 4.5 - 10.8 10^3/mcL Workflow SS .Auto Diffon 02-14-2025 Basophil, Absolute 0.1 10 3/mcL Normal 0.0-0.3 [facility] MAIN Comment on above: Performed By: #### C BC, GFR, ANEU, BMP, ADIFF #### [place] [address] Basophils/100 WBC (Bld) 0.7 % Normal 0.0-2.5 [facility] MAIN Comment on above: Performed By: #### C BC, GFR, ANEU, BMP, ADIFF #### [address] [address] Eosinophil, Absolute 0.0 10 3/mcL Normal 0.0-0.7 [facility] MAIN Comment on above: Performed By: #### C BC, GFR, ANEU, BMP, ADIFF #### [address] [address] Eosinophils/100 WBC (Bld) 0.2 % Normal 0.0-6.0 [facility] Comment on above: Performed By: #### C BC, GFR, ANEU, BMP, ADIFF #### [address] [address] Lymphocyte, Absolute 1.3 10 3/mcL Normal 0.9-4.3 [facility] MAIN Comment on above: Performed By: #### C BC, GFR, ANEU, BMP, ADIFF #### [address] [address] Lymphocytes/100 WBC (Bld) 16.9 % Low 20.0-40.0 [facility] Comment on above: Performed By: #### C BC, GFR, ANEU, BMP, ADIFF #### [address] [address] Monocyte, Absolute 0.9 10 3/mcL Normal 0.1-1.4 [facility] MAIN Comment on above: Performed By: #### C BC, GFR, ANEU, BMP, ADIFF #### [address] [address] Monocytes/100 WBC (Bld) 11.3 % Normal 2.0-13.0 [facility] MAIN Comment on above: Performed By: #### C BC, GFR, ANEU, BMP, ADIFF #### [address] [address] Neutrophils/100 WBC (Bld) 70.9 % Normal 50.0-75.0 [facility] Comment on above: Performed By: #### C BC, GFR, ANEU, BMP, ADIFF #### [address] [address] .GFRon 02-14-2025 Estimated Glomerular Filtration Rate 20 ml/min/1.73sqm Normal [facility] Comment on above: Result Comment: Stages of Chronic Kidney Disease (CKD) Stage Description eGFR(ml/min/1.73 sq.m.) CKD 1 Normal kidney function or >=90 normal kindney function with possible kidney damage (ex. Proteinuria) CKD 2 Kidney damage with mild loss 60-89 of kidney function CKD 3a Mild to moderate loss of kidney 45-59 function CKD 3b Moderate to severe loss of 30-44 of kindey function CKD 4 Severe loss of kidney function 15-29 CKD 5 Kidney failure <15 Note: (go live 2024) the eGFR calculation was updated to the 2020 CKD-EPI creatinine equation without a race factor to calculate the eGFR results. Performed By: #### C BC, GFR, ANEU, BMP, ADIFF #### [place] [address] .NEUABSon 02-14-2025 Neutrophil, Absolute 5.5 10 3/mcL Normal 2.3-8.1 [facility] MAIN Comment on above: Performed By: #### C BC, GFR, ANEU, BMP, ADIFF #### [address] [address] BMPon 02-14-2025 BUN/Creatinine Ratio 10.0 ratio Normal 10.0-22.0 [facility] MAIN Comment on above: Performed By: #### C BC, GFR, ANEU, BMP, ADIFF #### [address] [address] Calcium [Mass/Vol] 7.9 mg/dL Low 8.7-10.4 [facility] MAIN Comment on above: Performed By: #### C BC, GFR, ANEU, BMP, ADIFF #### [address] [address] Chloride [Moles/Vol] 104 mmol/L Normal 98-110 [facility] MAIN Comment on above: Performed By: #### C BC, GFR, ANEU, BMP, ADIFF #### [address] [address] CO2 [Moles/Vol] 26 mmol/L Normal 22-32 [facility] Comment on above: Performed By: #### C BC, GFR, ANEU, BMP, ADIFF #### [address] [address] Creatinine [Mass/Vol] 3.61 mg/dL High 0.60-1.40 [facility] MAIN Comment on above: Result Comment: Test ing performed on [employer] analyzer using enzymatic creatinine methodology. Performed By: #### C BC, GFR, ANEU, BMP, ADIFF #### [address] [address] Electrolyte Balance 7.0 mEq/L Normal 4.0-15.0 [facility] MAIN Comment on above: Performed By: #### C BC, GFR, ANEU, BMP, ADIFF #### [address] [address] Glucose [Mass/Vol] 312 mg/dL High 70-110 [facility] MAIN Comment on above: Performed By: #### C BC, GFR, ANEU, BMP, ADIFF #### [address] [address] Potassium [Moles/Vol] 4.4 mmol/L Normal 3.5-5.0 [facility] MAIN Comment on above: Performed By: #### C BC, GFR, ANEU, BMP, ADIFF #### [address] [address] Sodium [Moles/Vol] 137 mmol/L Normal 136-145 [facility] MAIN Comment on above: Performed By: #### C BC, GFR, ANEU, BMP, ADIFF #### [address] [address] Urea nitrogen [Mass/Vol] 36.0 mg/dL High 8.0-22.0 [facility] Comment on above: Performed By: #### C BC, GFR, ANEU, BMP, ADIFF #### [address] [address] CBCon 02-14-2025 Erythrocyte distribution width (RBC) [Ratio] 23.6 % High 11.5-15.5 [facility] Comment on above: Performed By: #### C BC, GFR, ANEU, BMP, ADIFF #### [place] [address] Hematocrit (Bld) [Volume fraction] 29.0 % Low 40.0-52.0 [facility] Comment on above: Performed By: #### C BC, GFR, ANEU, BMP, ADIFF #### [place] [address] Hgb 9.2 G/dL Low 13.0-17.5 [facility] Comment on above: Performed By: #### C BC, GFR, ANEU, BMP, ADIFF #### [place] [address] MCH (RBC) [Entitic mass] 24.7 pg Low 27.0-33.0 [facility] Comment on above: Performed By: #### C BC, GFR, ANEU, BMP, ADIFF #### [place] [address] MCHC 31.9 G/dL Low 32.0-36.0 [facility] Comment on above: Performed By: #### C BC, GFR, ANEU, BMP, ADIFF #### [place] [address] MCV (RBC) [Entitic vol] 77.4 fL Low 81.0-100.0 [facility] MAIN Comment on above: Performed By: #### C BC, GFR, ANEU, BMP, ADIFF #### [place] [address] Platelet 185 10 3/mcL Normal 150-450 [facility] Comment on above: Performed By: #### C BC, GFR, ANEU, BMP, ADIFF #### [place] [address] Platelet mean volume (Bld) [Entitic vol] 7.6 fL Normal 6.4-10.5 [facility] Comment on above: Performed By: #### C BC, GFR, ANEU, BMP, ADIFF #### [place] [address] RBC 3.74 10 6/mcL Low 4.50-6.00 [facility] Comment on above: Performed By: #### C BC, GFR, ANEU, BMP, ADIFF #### [facility] [address] [place] [address] WBC 7.8 10 3/mcL Normal 4.5-10.8 [facility] Comment on above: Performed By: #### C BC, GFR, ANEU, BMP, ADIFF #### [facility] [address] [place] [address] LABORATORYOrdered By: Selena Chand on 02-14-2025 Blood Glucose Testing Reason Routine (02/14/25 9:40 PM) [facility] Work Phone: LABORATORYOrdered By: Moe Dutton on 02-14-2025 Blood Glucose Testing Reason Routine (02/14/25 5:18 PM) [facility] Work Phone: Blood Glucose Testing Reason Routine (02/14/25 12:02 PM) [facility] Work Phone: LABORATORYOrdered By: Samra Cortes on 02-14-2025 Appearance (U) Clear (02/14/25 11:10 AM) Normal Clear Auto Urine SS Bacteria LM.HPF (Urine sed) [#/Area] Trace /HPF Invalid Interpretation Code Negative Auto Urine SS Bilirubin Ql (U) Negative (02/14/25 11:10 AM) Normal Neg-Trace Auto Urine SS Color (U) Yellow (02/14/25 11:10 AM) Normal Auto Urine SS Glucose Test strip (U) [Mass/Vol] 500 mg/dL Invalid Interpretation Code Negative AH Auto Urine SS Hemoglobin Auto test strip (U) [Mass/Vol] Small *ABN* (02/14/25 11:10 AM) Invalid Interpretation Code Neg-Trace AH Auto Urine SS Ketones Ql (U) Negative Normal Neg-Trace AH Auto Urine SS UA Leuk Est Negative (02/14/25 11:10 AM) Normal Negative AH Auto Urine SS UA Nitrite Negative (02/14/25 11:10 AM) Normal Negative AH Auto Urine SS UA pH 7.5 (02/14/25 11:10 AM) Normal 5.0 - 8.0 AH Auto Urine SS UA Protein >=1000 mg/dL Invalid Interpretation Code Negative AH Auto Urine SS UA RBC 0-2 /HPF Normal 0-2 AH Auto Urine SS UA Spec Grav 1.010 (02/14/25 11:10 AM) Normal 1.006-1.02 9 Auto Urine SS UA Specimen Type Clean Catch (02/14/25 11:10 AM) Normal Auto Urine SS UA Squam Epithelial 0-2 /HPF Normal 0-20 Au to Urine SS UA Urobilinogen 0.2 E.U./dL Normal 0.2-1.0 Auto Urine SS WBC LM.HPF (Urine sed) [#/Area] 3-5 /HPF Normal 0-5 Auto Urine SS LABORATORYOrdered By: Roberto Rock on 02-14-2025 Creatinine (U) [Mass/Vol] 19.7 mg/dL Invalid Interpretation Code ADM SS Protein (U) [Mass/Vol] 474.8 mg/dL Invalid Interpretation Code ADM SS U Ratio Prot/Creat 24.1 ratio Invalid Interpretation Code Chemistry S LABORATORYOrdered By: SYSTEM SYSTEM on 02-14-2025 Basophils (Bld) [#/Vol] 0.1 103/mcL Normal 0.0 - 0.3 10^3/mcL Workflow SS Basophils/100 WBC (Bld) 0.7 % Normal 0.0 - 2.5 % Workflow SS Calcium [Mass/Vol] 7.9 mg/dL Low 8.7 - 10. 4 mg/dL ADM SS Chloride [Moles/Vol] 104 mmol/L Normal 98 - 11 0 mEq/L ADM SS CO2 [Moles/Vol] 26 mmol/L Normal 22 - 32 mEq/L AH ADM SS Creatinine [Mass/Vol] 3.61 mg/dL High 0.60 - 1.40 mg/dL AH ADM SS Comment on above: Interpretive Data: T esting performed on [employer] analyzer using enzymatic creatinine methodology. Electrolyte Balance 7.0 mEq/L Normal 4.0 - 15 .0 mEq/L AH ADM SS Eosinophils (Bld) [#/Vol] 0.0 103/mcL Normal 0.0 - 0.7 10^3/mcL Workflow SS Eosinophils/100 WBC (Bld) 0.2 % Normal 0.0 - 6.0 % AH Workflow SS Erythrocyte distribution width (RBC) [Ratio] 23.6 % High 11.5 - 15.5 % AH Workflow SS Estimated Glomerular Filtration Rate 20 ml/min/1.73sqm Invalid Interpretation Code Chemistry S Comment on above: Interpretive Data: Stages of Chronic Kidney Disease (CKD) Stage Description eGFR(ml/min/1.73 sq.m.) CKD 1 Normal kidney function or >=90 normal kindney function with possible kidney damage (ex. Proteinuria) CKD 2 Kidney damage with mild loss 60-89 of kidney function CKD 3a Mild to moderate loss of kidney 45-59 function CKD 3b Moderate to severe loss of 30-44 of kindey function CKD 4 Severe loss of kidney function 15-29 CKD 5 Kidney failure <15 Note: (go live 2024) the eGFR calculation was updated to the 2020 CKD-EPI creatinine equation without a race factor to calculate the eGFR results. Glucose [Mass/Vol] 312 mg/dL High 70 - 110 mg/dL ADM SS Hematocrit (Bld) [Volume fraction] 29.0 % Low 40.0 - 52.0 % AH Workflow SS Hemoglobin (Bld) [Mass/Vol] 9.2 G/dL Low 13.0 - 17.5 G/dL AH Workflow SS Lymphocytes (Bld) [#/Vol] 1.3 103/mcL Normal 0.9 - 4.3 10^3/mcL Workflow SS Lymphocytes/100 WBC (Bld) 16.9 % Low 20.0 - 40.0 % AH Workflow SS MCH (RBC) [Entitic mass] 24.7 pg Low 27.0 - 33.0 pg AH Workflow SS MCHC 31.9 G/dL Low 32.0 - 36.0 G/dL AH Workflow SS MCV (RBC) [Entitic vol] 77.4 fL Low 81.0 - 100.0 fL AH Workflow SS Monocytes (Bld) [#/Vol] 0.9 103/mcL Normal 0.1 - 1.4 10^3/mcL AH Workflow SS Monocytes/100 WBC (Bld) 11.3 % Normal 2.0 - 13.0 % AH Workflow SS Neutrophils (Bld) [#/Vol] 5.5 103/mcL Normal 2.3 - 8.1 10^3/mcL AH Workflow SS Neutrophils/100 WBC (Bld) 70.9 % Normal 50.0 - 75.0 % AH Workflow SS Platelet mean volume (Bld) [Entitic vol] 7.6 fL Normal 6.4 - 10.5 fL AH Workflow SS Platelets (Bld) [#/Vol] 185 103/mcL Normal 150 - 450 10^3/mcL AH Workflow SS Potassium [Moles/Vol] 4.4 mmol/L Normal 3.5 - 5.0 mEq/L ADM SS RBC (Bld) [#/Vol] 3.74 106/mcL Low 4.50 - 6.00 10^6/mcL AH Workflow SS Sodium [Moles/Vol] 137 mmol/L Normal 136 - 145 mEq/L ADM SS Urea nitrogen [Mass/Vol] 36.0 mg/dL High 8.0 - 22.0 mg/dL ADM SS Urea nitrogen/Creatinine [Mass ratio] 10.0 ratio Normal 10.0 - 22.0 ratio ADM SS WBC (Bld) [#/Vol] 7.8 103/mcL Normal 4.5 - 10.8 10^3/mcL Workflow SS RPCURon 02-14-2025 U Creatinine 19.7 mg/dL Normal [facility] MAIN Comment on above: Performed By: #### C BC, GFR, ANEU, BMP, ADIFF #### [address] [address] U Protein 474.8 mg/dL Normal [facility] MAIN Comment on above: Performed By: #### C BC, GFR, ANEU, BMP, ADIFF #### [address] [address] U Ratio Prot/Creat 24.1 ratio Normal [facility] MAIN Comment on above: Performed By: #### C BC, GFR, ANEU, BMP, ADIFF #### [address] [address] UAon 02-14-2025 Color (U) Yellow Normal [facility]IN Comment on above: Performed By: #### C BC, GFR, ANEU, BMP, ADIFF #### [address] [address] Glucose (U) [Mass/Vol] 500 mg/dL Abnormal Negative [facility] MAIN Comment on above: Performed By: #### C BC, GFR, ANEU, BMP, ADIFF #### [address] [address] Ketones Ql (U) Negative Normal Neg-Trace [facility] MAIN Comment on above: Performed By: #### C BC, GFR, ANEU, BMP, ADIFF #### [address] [address] UA Appear Clear Normal Clear [facility] MAIN Comment on above: Performed By: #### C BC, GFR, ANEU, BMP, ADIFF #### [address] [address] UA Blood Small Abnormal Neg-Trace [facility] MAIN Comment on above: Performed By: #### C BC, GFR, ANEU, BMP, ADIFF #### [place] [id number] UA Leuk Est Negative Normal Negative [facility]IN Comment on above: Performed By: #### C BC, GFR, ANEU, BMP, ADIFF #### [place] [address] UA Nitrite Negative Normal Negative [facility] Comment on above: Performed By: #### C BC, GFR, ANEU, BMP, ADIFF #### [place] [address] UA pH 7.5 Normal 5.0 - 8.0 [facility]IN Comment on above: Performed By: #### C BC, GFR, ANEU, BMP, ADIFF #### [place] [address] UA Protein >=1000 Abnormal Negative [facility] Comment on above: Performed By: #### C BC, GFR, ANEU, BMP, ADIFF #### [place] [id number] UA Spec Grav 1.010 Normal 1.006-1.02 9 [facility]IN Comment on above: Performed By: #### C BC, GFR, ANEU, BMP, ADIFF #### [place] [address] UA Specimen Type Clean Catch Normal [facility] Comment on above: Performed By: #### C BC, GFR, ANEU, BMP, ADIFF #### [place] [address] UA Urobilinogen 0.2 E.U./dL Normal 0.2-1.0 [facility] Comment on above: Performed By: #### C BC, GFR, ANEU, BMP, ADIFF #### [place] [address] Urobilinogen (U) [Mass/Vol] Negative Normal Neg-Trace [facility] Comment on above: Performed By: #### C BC, GFR, ANEU, BMP, ADIFF #### [place] [id number] UAMICon 02-14-2025 UA Bacteria Trace Abnormal Negative [facility] Comment on above: Performed By: #### C BC, GFR, ANEU, BMP, ADIFF #### [place] [address] UA RBC 0-2 Normal 0-2 [facility] Comment on above: Performed By: #### C BC, GFR, ANEU, BMP, ADIFF #### [place] [address] UA Squam Epithelial 0-2 Normal 0-20 [facility]IN Comment on above: Performed By: #### C BC, GFR, ANEU, BMP, ADIFF #### [place] [address] UA WBC 3-5 Normal 0-5 [facility] Comment on above: Performed By: #### C BC, GFR, ANEU, BMP, ADIFF #### [place] [address] .GFRon 02-13-2025 Estimated Glomerular Filtration Rate 14 ml/min/1.73sqm Normal [facility] Comment on above: Result Comment: Stages of Chronic Kidney Disease (CKD) Stage Description eGFR(ml/min/1.73 sq.m.) CKD 1 Normal kidney function or >=90 normal kindney function with possible kidney damage (ex. Proteinuria) CKD 2 Kidney damage with mild loss 60-89 of kidney function CKD 3a Mild to moderate loss of kidney 45-59 function CKD 3b Moderate to severe loss of 30-44 of kindey function CKD 4 Severe loss of kidney function 15-29 CKD 5 Kidney failure <15 Note: (go live 2024) the eGFR calculation was updated to the 2020 CKD-EPI creatinine equation without a race factor to calculate the eGFR results. Performed By: #### R FP, GFR #### [place] [address] LABORATORYOrdered By: SYSTEM SYSTEM on 02-13-2025 Albumin BCP dye [Mass/Vol] 2.1 G/dL Low 3.2 - 4.8 G/dL AH ADM SS Calcium [Mass/Vol] 7.8 mg/dL Low 8.7 - 10. 4 mg/dL AH ADM SS Chloride [Moles/Vol] 105 mmol/L Normal 98 - 11 0 mEq/L AH ADM SS CO2 [Moles/Vol] 25 mmol/L Normal 22 - 32 mEq/L AH ADM SS Creatinine [Mass/Vol] 4.76 mg/dL High 0.60 - 1.40 mg/dL AH ADM SS Comment on above: Interpretive Data: T esting performed on [employer] analyzer using enzymatic creatinine methodology. Electrolyte Balance 7.0 mEq/L Normal 4.0 - 15 .0 mEq/L AH ADM SS Estimated Glomerular Filtration Rate 14 ml/min/1.73sqm Invalid Interpretation Code Chemistry S Comment on above: Interpretive Data: Stages of Chronic Kidney Disease (CKD) Stage Description eGFR(ml/min/1.73 sq.m.) CKD 1 Normal kidney function or >=90 normal kindney function with possible kidney damage (ex. Proteinuria) CKD 2 Kidney damage with mild loss 60-89 of kidney function CKD 3a Mild to moderate loss of kidney 45-59 function CKD 3b Moderate to severe loss of 30-44 of kindey function CKD 4 Severe loss of kidney function 15-29 CKD 5 Kidney failure <15 Note: (go live 2024) the eGFR calculation was updated to the 2020 CKD-EPI creatinine equation without a race factor to calculate the eGFR results. Glucose [Mass/Vol] 200 mg/dL High 70 - 110 mg/dL AH ADM SS Phosphate [Mass/Vol] 6.2 mg/dL High 2.4 - 5 .1 mg/dL AH ADM SS Comment on above: Interpretive Data: * *Note - New Reference Range in effect 20 Potassium [Moles/Vol] 4.5 mmol/L Normal 3.5 - 5.0 mEq/L ADM SS Sodium [Moles/Vol] 137 mmol/L Normal 136 - 145 mEq/L ADM SS Urea nitrogen [Mass/Vol] 45.0 mg/dL High 8.0 - 22.0 mg/dL ADM SS Urea nitrogen/Creatinine [Mass ratio] 9.5 ratio Low 10.0 - 22.0 ratio ADM SS RFPon 02-13-2025 Albumin Level 2.1 G/dL Low 3.2-4.8 [facility] Comment on above: Performed By: #### R FP, GFR #### [address] [address] BUN/Creatinine Ratio 9.5 ratio Low 10.0-22.0 [facility] MAIN Comment on above: Performed By: #### R FP, GFR #### [address] [address] Calcium [Mass/Vol] 7.8 mg/dL Low 8.7-10.4 [facility] MAIN Comment on above: Performed By: #### R FP, GFR #### [address] [address] Chloride [Moles/Vol] 105 mmol/L Normal 98-110 [facility] MAIN Comment on above: Performed By: #### R FP, GFR #### [address] [address] CO2 [Moles/Vol] 25 mmol/L Normal 22-32 [facility] Comment on above: Performed By: #### R FP, GFR #### [address] [address] Creatinine [Mass/Vol] 4.76 mg/dL High 0.60-1.40 [facility] MAIN Comment on above: Result Comment: Test ing performed on [employer] analyzer using enzymatic creatinine methodology. Performed By: #### R FP, GFR #### [address] [address] Electrolyte Balance 7.0 mEq/L Normal 4.0-15.0 [facility] Comment on above: Performed By: #### R FP, GFR #### [address] [address] Glucose [Mass/Vol] 200 mg/dL High 70-110 [facility] Comment on above: Performed By: #### R FP, GFR #### [address] [address] Phosphate [Mass/Vol] 6.2 mg/dL High 2.4-5.1 [facility]IN Comment on above: Result Comment: No te - New Reference Range in effect 20 Performed By: #### R FP, GFR #### [address] [address] Potassium [Moles/Vol] 4.5 mmol/L Normal 3.5-5.0 [facility] Comment on above: Performed By: #### R FP, GFR #### [address] [address] Sodium [Moles/Vol] 137 mmol/L Normal 136-145 [facility] Comment on above: Performed By: #### R FP, GFR #### [address] [address] Urea nitrogen [Mass/Vol] 45.0 mg/dL High 8.0-22.0 [facility] Comment on above: Performed By: #### R FP, GFR #### [address] [address] .GFRon 02-12-2025 Estimated Glomerular Filtration Rate 17 ml/min/1.73sqm Normal [facility] Comment on above: Result Comment: Stages of Chronic Kidney Disease (CKD) Stage Description eGFR(ml/min/1.73 sq.m.) CKD 1 Normal kidney function or >=90 normal kindney function with possible kidney damage (ex. Proteinuria) CKD 2 Kidney damage with mild loss 60-89 of kidney function CKD 3a Mild to moderate loss of kidney 45-59 function CKD 3b Moderate to severe loss of 30-44 of kindey function CKD 4 Severe loss of kidney function 15-29 CKD 5 Kidney failure <15 Note: (go live 2024) the eGFR calculation was updated to the 2020 CKD-EPI creatinine equation without a race factor to calculate the eGFR results. Performed By: #### C BC, GFR, ANEU, BMP, ADIFF #### [address] [address] .Manual Diffon 02-12-2025 Basophil %, Manual 0.0 % Normal 0.0-2.5 [facility] Comment on above: Performed By: #### C BC, GFR, ANEU, BMP, ADIFF #### [place] [id number] Basophil, Abs Manual 0.0 10 3/mcL Normal 0.0-0.3 [facility] Comment on above: Performed By: #### C BC, GFR, ANEU, BMP, ADIFF #### [place] [id number] Eosinophil %, Manual 0.0 % Normal 0.0-6.0 [facility] Comment on above: Performed By: #### C BC, GFR, ANEU, BMP, ADIFF #### [place] [address] Eosinophil, Abs Manual 0.0 10 3/mcL Normal 0.0-0.7 [facility] Comment on above: Performed By: #### C BC, GFR, ANEU, BMP, ADIFF #### [place] [address] Lymphocyte %, Manual 8.0 % Low 20.0-40.0 [facility] Comment on above: Performed By: #### C BC, GFR, ANEU, BMP, ADIFF #### [place] [phone] Lymphocyte, Abs Manual 0.6 10 3/mcL Low 0.9-4.3 [facility] Comment on above: Performed By: #### C BC, GFR, ANEU, BMP, ADIFF #### [place] [id number] Monocyte %, Manual 4.0 % Normal 2.0-13.0 [facility] Comment on above: Performed By: #### C BC, GFR, ANEU, BMP, ADIFF #### [place] [id number] Monocyte, Abs Manual 0.3 10 3/mcL Normal 0.1-1.4 [facility] Comment on above: Performed By: #### C BC, GFR, ANEU, BMP, ADIFF #### [place] [address] Neutrophil %, Manual 88.0 % High 50.0-75.0 [facility] Comment on above: Performed By: #### C BC, GFR, ANEU, BMP, ADIFF #### [place] [address] Neutrophil, Abs Manual 6.6 10 3/mcL Normal 2.3-8.1 [facility] Comment on above: Performed By: #### C BC, GFR, ANEU, BMP, ADIFF #### [place] [address] Nucleated RBC 0.0 /100 WBC Normal [facility] Comment on above: Performed By: #### C BC, GFR, ANEU, BMP, ADIFF #### [place] [address] .Morphon 02-12-2025 Anisocytosis Ql (Bld) 1+ Normal [facility] MAIN Comment on above: Performed By: #### C BC, GFR, ANEU, BMP, ADIFF #### [place] [address] Hypochrom 1+ Normal [facility] Comment on above: Performed By: #### C BC, GFR, ANEU, BMP, ADIFF #### [place] [address] Large Platelets Few Normal [facility] Comment on above: Performed By: #### C BC, GFR, ANEU, BMP, ADIFF #### [place] [address] Microcytosis 1+ Normal [facility] Comment on above: Performed By: #### C BC, GFR, ANEU, BMP, ADIFF #### [place] [address] Ovalocytes 1+ Normal [facility] Comment on above: Performed By: #### C BC, GFR, ANEU, BMP, ADIFF #### [place] [address] Platelet Estimate Normal Normal [facility] Comment on above: Performed By: #### C BC, GFR, ANEU, BMP, ADIFF #### [address] [address] Poik 1+ Normal [facility] Comment on above: Performed By: #### C BC, GFR, ANEU, BMP, ADIFF #### [place] [id number] Tear Cell 1+ Normal [facility] Comment on above: Performed By: #### C BC, GFR, ANEU, BMP, ADIFF #### [place] [address] BMPon 02-12-2025 BUN/Creatinine Ratio 9.2 ratio Low 10.0-22.0 [facility] Comment on above: Performed By: #### C BC, GFR, ANEU, BMP, ADIFF #### [place] [address] Calcium [Mass/Vol] 8.1 mg/dL Low 8.7-10.4 [facility] Comment on above: Performed By: #### C BC, GFR, ANEU, BMP, ADIFF #### [place] [address] Chloride [Moles/Vol] 106 mmol/L Normal 98-110 [facility] Comment on above: Performed By: #### C BC, GFR, ANEU, BMP, ADIFF #### [place] [address] CO2 [Moles/Vol] 28 mmol/L Normal 22-32 [facility] Comment on above: Performed By: #### C BC, GFR, ANEU, BMP, ADIFF #### [place] [address] Creatinine [Mass/Vol] 4.14 mg/dL High 0.60-1.40 [facility] Comment on above: Result Comment: Test ing performed on New Relic analyzer using enzymatic creatinine methodology. Performed By: #### C BC, GFR, ANEU, BMP, ADIFF #### [place] [address] Electrolyte Balance 5.0 mEq/L Normal 4.0-15.0 [facility] Comment on above: Performed By: #### C BC, GFR, ANEU, BMP, ADIFF #### [address] [address] Glucose [Mass/Vol] 210 mg/dL High 70-110 [facility] Comment on above: Performed By: #### C BC, GFR, ANEU, BMP, ADIFF #### [address] [address] Potassium [Moles/Vol] 4.7 mmol/L Normal 3.5-5.0 [facility] Comment on above: Performed By: #### C BC, GFR, ANEU, BMP, ADIFF #### [address] [address] Sodium [Moles/Vol] 139 mmol/L Normal 136-145 [facility] Comment on above: Performed By: #### C BC, GFR, ANEU, BMP, ADIFF #### [place] [phone] Urea nitrogen [Mass/Vol] 38.0 mg/dL High 8.0-22.0 [facility] Comment on above: Performed By: #### C BC, GFR, ANEU, BMP, ADIFF #### [address] [address] CBCon 02-12-2025 Erythrocyte distribution width (RBC) [Ratio] 24.7 % High 11.5-15.5 [facility] Comment on above: Performed By: #### C BC, GFR, ANEU, BMP, ADIFF #### [address] [address] Hematocrit (Bld) [Volume fraction] 27.5 % Low 40.0-52.0 [facility] Comment on above: Performed By: #### C BC, GFR, ANEU, BMP, ADIFF #### [address] [address] Hgb 8.5 G/dL Low 13.0-17.5 [facility] Comment on above: Performed By: #### C BC, GFR, ANEU, BMP, ADIFF #### [address] [address] MCH (RBC) [Entitic mass] 23.9 pg Low 27.0-33.0 [facility] Comment on above: Performed By: #### C BC, GFR, ANEU, BMP, ADIFF #### [place] [address] MCHC 31.0 G/dL Low 32.0-36.0 [facility] Comment on above: Performed By: #### C BC, GFR, ANEU, BMP, ADIFF #### [place] [address] MCV (RBC) [Entitic vol] 77.1 fL Low 81.0-100.0 [facility] MAIN Comment on above: Performed By: #### C BC, GFR, ANEU, BMP, ADIFF #### [place] [address] Platelet 204 10 3/mcL Normal 150-450 [facility] Comment on above: Performed By: #### C BC, GFR, ANEU, BMP, ADIFF #### [place] [address] Platelet mean volume (Bld) [Entitic vol] 7.8 fL Normal 6.4-10.5 [facility] Comment on above: Performed By: #### C BC, GFR, ANEU, BMP, ADIFF #### [place] [address] RBC 3.57 10 6/mcL Low 4.50-6.00 [facility] Comment on above: Performed By: #### C BC, GFR, ANEU, BMP, ADIFF #### [place] [address] WBC 7.5 10 3/mcL Normal 4.5-10.8 [facility] Comment on above: Performed By: #### C BC, GFR, ANEU, BMP, ADIFF #### [place] [address] LABORATORYOrdered By: SYSTEM SYSTEM on 02-12-2025 Anisocytosis Ql (Bld) 1+ *NA* (02/12/25 6:21 AM) Invalid Interpretation Code AH Workflow SS Basophils (Bld) [#/Vol] 0.0 103/mcL Normal 0.0 - 0.3 10^3/mcL AH Workflow SS Basophils/100 WBC (Bld) 0.0 % Normal 0.0 - 2.5 % AH Workflow SS Dacrocytes LM Ql (Bld) 1+ *NA* (02/12/25 6:21 AM) Invalid Interpretation Code AH Workflow SS Eosinophils (Bld) [#/Vol] 0.0 103/mcL Normal 0.0 - 0.7 10^3/mcL AH Workflow SS Eosinophils/100 WBC (Bld) 0.0 % Normal 0.0 - 6.0 % AH Workflow SS Erythrocyte distribution width (RBC) [Ratio] 24.7 % High 11.5 - 15.5 % AH Workflow SS Hematocrit (Bld) [Volume fraction] 27.5 % Low 40.0 - 52.0 % AH Workflow SS Hemoglobin (Bld) [Mass/Vol] 8.5 G/dL Low 13.0 - 17.5 G/dL AH Workflow SS Hypochromia Ql (Bld) 1+ *NA* (02/12/25 6:21 AM) Invalid Interpretation Code AH Workflow SS Large Platelets Few *NA* (02/12/25 6:21 AM) Invalid Interpretation Code Workflow SS Lymphocytes (Bld) [#/Vol] 0.6 103/mcL Low 0.9 - 4.3 10^3/mcL AH Workflow SS Lymphocytes/100 WBC (Bld) 8.0 % Low 20.0 - 40.0 % AH Workflow SS MCH (RBC) [Entitic mass] 23.9 pg Low 27.0 - 33.0 pg AH Workflow SS MCHC 31.0 G/dL Low 32.0 - 36.0 G/dL AH Workflow SS MCV (RBC) [Entitic vol] 77.1 fL Low 81.0 - 100.0 fL AH Workflow SS Microcytes Ql (Bld) 1+ *NA* (02/12/25 6:21 AM) Invalid Interpretation Code AH Workflow SS Monocytes (Bld) [#/Vol] 0.3 103/mcL Normal 0.1 - 1.4 10^3/mcL AH Workflow SS Monocytes/100 WBC (Bld) 4.0 % Normal 2.0 - 13.0 % AH Workflow SS Neutrophils (Bld) [#/Vol] 6.6 103/mcL Normal 2.3 - 8.1 10^3/mcL AH Workflow SS Neutrophils/100 WBC (Bld) 88.0 % High 50.0 - 75.0 % AH Workflow SS Nucleated RBC 0.0 /100 WBC Invalid Interpretation Code AH Workflow SS Ovalocytes LM Ql (Bld) 1+ *NA* (02/12/25 6:21 AM) Invalid Interpretation Code AH Workflow SS Platelet mean volume (Bld) [Entitic vol] 7.8 fL Normal 6.4 - 10.5 fL AH Workflow SS Platelets (Bld) [#/Vol] 204 103/mcL Normal 150 - 450 10^3/mcL AH Workflow SS Platelets LM Ql (Bld) Normal *NA* (02/12/25 6:21 AM) Invalid Interpretation Code AH Workflow SS Poikilocytosis LM Ql (Bld) 1+ *NA* (02/12/25 6:21 AM) Invalid Interpretation Code Workflow SS RBC (Bld) [#/Vol] 3.57 106/mcL Low 4.50 - 6.00 10^6/mcL AH Workflow SS WBC (Bld) [#/Vol] 7.5 103/mcL Normal 4.5 - 10.8 10^3/mcL Workflow SS .Auto Diffon 02-11-2025 Basophil, Absolute 0.1 10 3/mcL Normal 0.0-0.3 [facility] MAIN Comment on above: Performed By: #### C BC, GFR, ANEU, BMP, ADIFF #### [address] [address] Eosinophil, Absolute 0.1 10 3/mcL Normal 0.0-0.7 [facility] Comment on above: Performed By: #### C BC, GFR, ANEU, BMP, ADIFF #### [address] [address] Lymphocyte, Absolute 1.1 10 3/mcL Normal 0.9-4.3 [facility] Comment on above: Performed By: #### C BC, GFR, ANEU, BMP, ADIFF #### [address] [address] Monocyte, Absolute 0.9 10 3/mcL Normal 0.1-1.4 [facility] Comment on above: Performed By: #### C BC, GFR, ANEU, BMP, ADIFF #### [address] [address] .Auto DiffOrdered By: SYSTEM SYSTEM on 02-11-2025 Basophils/100 WBC (Bld) 0.7 % Normal 0.0-2.5 A H Workflow SS Comment on above: Performed By: #### C BC, GFR, ANEU, BMP, ADIFF #### [address] [address] Eosinophils/100 WBC (Bld) 0.8 % Normal 0.0-6.0 AH Workflow SS Comment on above: Performed By: #### C BC, GFR, ANEU, BMP, ADIFF #### [address] [address] Lymphocytes/100 WBC (Bld) 14.4 % Low 20.0-40.0 AH Workflow SS Comment on above: Performed By: #### C BC, GFR, ANEU, BMP, ADIFF #### [address] [address] Monocytes/100 WBC (Bld) 10.8 % Normal 2.0-13.0 A H Workflow SS Comment on above: Performed By: #### C BC, GFR, ANEU, BMP, ADIFF #### [address] [address] Neutrophils/100 WBC (Bld) 73.3 % Normal 50.0-75.0 AH Workflow SS Comment on above: Performed By: #### C BC, GFR, ANEU, BMP, ADIFF #### [address] [address] .GFRon 02-11-2025 Estimated Glomerular Filtration Rate 13 ml/min/1.73sqm Normal [facility] Comment on above: Result Comment: Stages of Chronic Kidney Disease (CKD) Stage Description eGFR(ml/min/1.73 sq.m.) CKD 1 Normal kidney function or >=90 normal kindney function with possible kidney damage (ex. Proteinuria) CKD 2 Kidney damage with mild loss 60-89 of kidney function CKD 3a Mild to moderate loss of kidney 45-59 function CKD 3b Moderate to severe loss of 30-44 of kindey function CKD 4 Severe loss of kidney function 15-29 CKD 5 Kidney failure <15 Note: (go live 2024) the eGFR calculation was updated to the 2020 CKD-EPI creatinine equation without a race factor to calculate the eGFR results. Performed By: #### C BC, GFR, ANEU, BMP, ADIFF #### [address] [address] .NEUABSon 02-11-2025 Neutrophil, Absolute 5.8 10 3/mcL Normal 2.3-8.1 [facility] Comment on above: Performed By: #### C BC, GFR, ANEU, BMP, ADIFF #### [place] [id number] BMPon 02-11-2025 BUN/Creatinine Ratio 8.2 ratio Low 10.0-22.0 [facility] MAIN Comment on above: Performed By: #### C BC, GFR, ANEU, BMP, ADIFF #### [place] [id number] Calcium [Mass/Vol] 7.9 mg/dL Low 8.7-10.4 [facility] Comment on above: Performed By: #### C BC, GFR, ANEU, BMP, ADIFF #### [place] [id number] Chloride [Moles/Vol] 111 mmol/L High 98-110 [facility] Comment on above: Performed By: #### C BC, GFR, ANEU, BMP, ADIFF #### [place] [id number] CO2 [Moles/Vol] 23 mmol/L Normal 22-32 [facility] Comment on above: Performed By: #### C BC, GFR, ANEU, BMP, ADIFF #### [place] [id number] Creatinine [Mass/Vol] 5.13 mg/dL High 0.60-1.40 [facility] MAIN Comment on above: Result Comment: Test ing performed on New Rel[employer] analyzer using enzymatic creatinine methodology. Performed By: #### C BC, GFR, ANEU, BMP, ADIFF #### [address] [address] Electrolyte Balance 7.0 mEq/L Normal 4.0-15.0 [facility] Comment on above: Performed By: #### C BC, GFR, ANEU, BMP, ADIFF #### [address] [address] Glucose [Mass/Vol] 129 mg/dL High 70-110 [facility] Comment on above: Performed By: #### C BC, GFR, ANEU, BMP, ADIFF #### [place] [id number] Potassium [Moles/Vol] 5.0 mmol/L Normal 3.5-5.0 [facility] Comment on above: Performed By: #### C BC, GFR, ANEU, BMP, ADIFF #### [place] [id number] Sodium [Moles/Vol] 141 mmol/L Normal 136-145 [facility] Comment on above: Performed By: #### C BC, GFR, ANEU, BMP, ADIFF #### [place] [id number] Urea nitrogen [Mass/Vol] 42.0 mg/dL High 8.0-22.0 [facility] Comment on above: Performed By: #### C BC, GFR, ANEU, BMP, ADIFF #### [address] [address] CBCon 02-11-2025 Erythrocyte distribution width (RBC) [Ratio] 24.7 % High 11.5-15.5 [facility] Comment on above: Performed By: #### C BC, GFR, ANEU, BMP, ADIFF #### [address] [address] Hematocrit (Bld) [Volume fraction] 23.9 % Low 40.0-52.0 [facility] Comment on above: Performed By: #### C BC, GFR, ANEU, BMP, ADIFF #### [place] [id number] Hgb 7.6 G/dL Low 13.0-17.5 [facility] Comment on above: Performed By: #### C BC, GFR, ANEU, BMP, ADIFF #### [place] [address] MCH (RBC) [Entitic mass] 24.3 pg Low 27.0-33.0 [facility] Comment on above: Performed By: #### C BC, GFR, ANEU, BMP, ADIFF #### [place] [address] MCHC 32.0 G/dL Normal 32.0-36.0 [facility] Comment on above: Performed By: #### C BC, GFR, ANEU, BMP, ADIFF #### [place] [address] MCV (RBC) [Entitic vol] 76.0 fL Low 81.0-100.0 [facility] MAIN Comment on above: Performed By: #### C BC, GFR, ANEU, BMP, ADIFF #### [place] [address] Platelet 200 10 3/mcL Normal 150-450 [facility] Comment on above: Performed By: #### C BC, GFR, ANEU, BMP, ADIFF #### [place] [address] Platelet mean volume (Bld) [Entitic vol] 8.4 fL Normal 6.4-10.5 [facility] Comment on above: Performed By: #### C BC, GFR, ANEU, BMP, ADIFF #### [place] [address] RBC 3.14 10 6/mcL Low 4.50-6.00 [facility] Comment on above: Performed By: #### C BC, GFR, ANEU, BMP, ADIFF #### [place] [address] WBC 7.9 10 3/mcL Normal 4.5-10.8 [facility] Comment on above: Performed By: #### C BC, GFR, ANEU, BMP, ADIFF #### [place] [address] LABORATORYOrdered By: SYSTEM SYSTEM on 02-11-2025 Basophils (Bld) [#/Vol] 0.1 103/mcL Normal 0.0 - 0.3 10^3/mcL Workflow SS Eosinophils (Bld) [#/Vol] 0.1 103/mcL Normal 0.0 - 0.7 10^3/mcL Workflow SS Lymphocytes (Bld) [#/Vol] 1.1 103/mcL Normal 0.9 - 4.3 10^3/mcL Workflow SS Monocytes (Bld) [#/Vol] 0.9 103/mcL Normal 0.1 - 1.4 10^3/mcL Workflow SS Neutrophils (Bld) [#/Vol] 5.8 103/mcL Normal 2.3 - 8.1 10^3/mcL Workflow SS MGOrdered By: SYSTEM SYSTEM on 02-11-2025 Magnesium [Mass/Vol] 1.7 mg/dL Normal 1.6-2.4 AH A DM SS Comment on above: Performed By: #### C BC, GFR, ANEU, BMP, ADIFF #### [address] [address] PHOSOrdered By: SYSTEM [employer] on 02-11-2025 Phosphate [Mass/Vol] 7.7 mg/dL High 2.4-5.1 AH A DM SS Comment on above: Interpretive Data: * *Note - New Reference Range in effect 20 Result Comment: No te - New Reference Range in effect 20 Performed By: #### C BC, GFR, ANEU, BMP, ADIFF #### [address] [address] .Auto Diffon 02-10-2025 Basophil, Absolute 0.0 10 3/mcL Normal 0.0-0.3 [facility] Comment on above: Performed By: #### C BC, GFR, ANEU, BMP, ADIFF #### [address] [address] Basophils/100 WBC (Bld) 0.5 % Normal 0.0-2.5 [facility] Comment on above: Performed By: #### C BC, GFR, ANEU, BMP, ADIFF #### [address] [address] Eosinophil, Absolute 0.0 10 3/mcL Normal 0.0-0.7 [facility] Comment on above: Performed By: #### C BC, GFR, ANEU, BMP, ADIFF #### [address] [address] Eosinophils/100 WBC (Bld) 0.2 % Normal 0.0-6.0 [facility] Comment on above: Performed By: #### C BC, GFR, ANEU, BMP, ADIFF #### [address] [address] Lymphocyte, Absolute 0.2 10 3/mcL Low 0.9-4.3 [facility] Comment on above: Performed By: #### C BC, GFR, ANEU, BMP, ADIFF #### [address] [address] Lymphocytes/100 WBC (Bld) 3.1 % Low 20.0-40.0 [facility] Comment on above: Performed By: #### C BC, GFR, ANEU, BMP, ADIFF #### [address] [address] Monocyte, Absolute 0.2 10 3/mcL Normal 0.1-1.4 [facility] MA[facility] Comment on above: Performed By: #### C BC, GFR, ANEU, BMP, ADIFF #### [address] [address] Monocytes/100 WBC (Bld) 2.1 % Normal 2.0-13.0 [facility] Comment on above: Performed By: #### C BC, GFR, ANEU, BMP, ADIFF #### [address] [address] Neutrophils/100 WBC (Bld) 94.1 % High 50.0-75.0 [facility] Comment on above: Performed By: #### C BC, GFR, ANEU, BMP, ADIFF #### [address] [address] .GFRon 02-10-2025 Estimated Glomerular Filtration Rate 14 ml/min/1.73sqm Normal [facility] MA[facility] Comment on above: Result Comment: Stages of Chronic Kidney Disease (CKD) Stage Description eGFR(ml/min/1.73 sq.m.) CKD 1 Normal kidney function or >=90 normal kindney function with possible kidney damage (ex. Proteinuria) CKD 2 Kidney damage with mild loss 60-89 of kidney function CKD 3a Mild to moderate loss of kidney 45-59 function CKD 3b Moderate to severe loss of 30-44 of kindey function CKD 4 Severe loss of kidney function 15-29 CKD 5 Kidney failure <15 Note: ( live 12/23/2024) the eGFR calculation was updated to the 2020 CKD-EPI creatinine equation without a race factor to calculate the eGFR results. Performed By: #### C BC, GFR, ANEU, BMP, ADIFF #### [address] [address] Estimated Glomerular Filtration Rate 11 ml/min/1.73sqm [facility] MAIN Comment on above: Result Comment: Stages of Chronic Kidney Disease (CKD) Stage Description eGFR(ml/min/1.73 sq.m.) CKD 1 Normal kidney function or >=90 normal kindney function with possible kidney damage (ex. Proteinuria) CKD 2 Kidney damage with mild loss 60-89 of kidney function CKD 3a Mild to moderate loss of kidney 45-59 function CKD 3b Moderate to severe loss of 30-44 of kindey function CKD 4 Severe loss of kidney function 15-29 CKD 5 Kidney failure <15 Note: ( live 12/23/2024) the eGFR calculation was updated to the 2020 CKD-EPI creatinine equation without a race factor to calculate the eGFR results. Performed By: #### C BC, GFR, ANEU, BMP, ADIFF #### [address] [address] Estimated Glomerular Filtration Rate 11 ml/min/1.73sqm [facility] MAIN Comment on above: Result Comment: Stages of Chronic Kidney Disease (CKD) Stage Description eGFR(ml/min/1.73 sq.m.) CKD 1 Normal kidney function or >=90 normal kindney function with possible kidney damage (ex. Proteinuria) CKD 2 Kidney damage with mild loss 60-89 of kidney function CKD 3a Mild to moderate loss of kidney 45-59 function CKD 3b Moderate to severe loss of 30-44 of kindey function CKD 4 Severe loss of kidney function 15-29 CKD 5 Kidney failure <15 Note: ( live 12/23/2024) the eGFR calculation was updated to the 2020 CKD-EPI creatinine equation without a race factor to calculate the eGFR results. Performed By: #### C BC, GFR, ANEU, BMP, ADIFF #### [place] [address] Estimated Glomerular Filtration Rate 11 ml/min/1.73sqm [facility] MAIN Comment on above: Result Comment: Stages of Chronic Kidney Disease (CKD) Stage Description eGFR(ml/min/1.73 sq.m.) CKD 1 Normal kidney function or >=90 normal kindney function with possible kidney damage (ex. Proteinuria) CKD 2 Kidney damage with mild loss 60-89 of kidney function CKD 3a Mild to moderate loss of kidney 45-59 function CKD 3b Moderate to severe loss of 30-44 of kindey function CKD 4 Severe loss of kidney function 15-29 CKD 5 Kidney failure <15 Note: ( live 12/23/2024) the eGFR calculation was updated to the 2020 CKD-EPI creatinine equation without a race factor to calculate the eGFR results. Performed By: #### C BC, GFR, ANEU, BMP, ADIFF #### [place] [address] .Morphon 02-10-2025 Anisocytosis Ql (Bld) 2+ Normal [facility] MAIN Comment on above: Performed By: #### C BC, GFR, ANEU, BMP, ADIFF #### [place] [address] Hypochrom 1+ [facility] MAIN Comment on above: Performed By: #### C BC, GFR, ANEU, BMP, ADIFF #### [place] [address] Microcytosis 1+ [facility] MAIN Comment on above: Performed By: #### C BC, GFR, ANEU, BMP, ADIFF #### [place] [address] Ovalocytes 1+ [facility] MAIN Comment on above: Performed By: #### C BC, GFR, ANEU, BMP, ADIFF #### [place] [address] Platelet Estimate Normal Normal [facility] Comment on above: Performed By: #### C BC, GFR, ANEU, BMP, ADIFF #### [place] [address] Poik 1+ Normal [facility] MAIN Comment on above: Performed By: #### C BC, GFR, ANEU, BMP, ADIFF #### [place] [address] .NEUABSon 02-10-2025 Neutrophil, Absolute 7.1 10 3/mcL Normal 2.3-8.1 [facility] MAIN Comment on above: Performed By: #### C BC, GFR, ANEU, BMP, ADIFF #### [place] [address] A1Con 02-10-2025 Glucose [Mass/Vol] 197 mg/dL Normal [facility] MAIN Comment on above: Result Comment: Nissa mated Average Glucose calculated by equation ((28.7xA1C)-46.7) Estimated average glucose (eAG) is a calculated value from Hemoglobin A1C and is community engagement representative of the average blood glucose level in the last 2-3 month period. Normal range: less than 114 mg/dL Performed By: #### C BC, GFR, ANEU, BMP, ADIFF #### [place] [address] HbA1c (Bld) [Mass fraction] 8.5 % High 4.0-6.0 [facility] MA[facility] Comment on above: Performed By: #### C BC, GFR, ANEU, BMP, ADIFF #### [place] [address] BMPon 02-10-2025 BUN/Creatinine Ratio 8.6 ratio Low 10.0-22.0 [facility] MAIN Comment on above: Performed By: #### C BC, GFR, ANEU, BMP, ADIFF #### [place] [address] Calcium [Mass/Vol] 8.3 mg/dL Low 8.7-10.4 [facility] Comment on above: Performed By: #### C BC, GFR, ANEU, BMP, ADIFF #### [place] [id number] Chloride [Moles/Vol] 109 mmol/L Normal 98-110 [facility] Comment on above: Performed By: #### C BC, GFR, ANEU, BMP, ADIFF #### [address] [address] CO2 [Moles/Vol] 24 mmol/L Normal 22-32 [facility] Comment on above: Performed By: #### C BC, GFR, ANEU, BMP, ADIFF #### [address] [address] Creatinine [Mass/Vol] 4.86 mg/dL High 0.60-1.40 [facility] Comment on above: Result Comment: Test ing performed on New Relic analyzer using enzymatic creatinine methodology. Performed By: #### C BC, GFR, ANEU, BMP, ADIFF #### [address] [address] Electrolyte Balance 7.0 mEq/L Normal 4.0-15.0 [facility] Comment on above: Performed By: #### C BC, GFR, ANEU, BMP, ADIFF #### [address] [address] Glucose [Mass/Vol] 164 mg/dL High 70-110 [facility] Comment on above: Performed By: #### C BC, GFR, ANEU, BMP, ADIFF #### [address] [address] Potassium [Moles/Vol] 5.6 mmol/L High 3.5-5.0 [facility] Comment on above: Performed By: #### C BC, GFR, ANEU, BMP, ADIFF #### [address] [address] Sodium [Moles/Vol] 140 mmol/L Normal 136-145 [facility] Comment on above: Performed By: #### C BC, GFR, ANEU, BMP, ADIFF #### [address] [address] Urea nitrogen [Mass/Vol] 42.0 mg/dL High 8.0-22.0 [facility] Comment on above: Performed By: #### C BC, GFR, ANEU, BMP, ADIFF #### [address] [address] BUN/Creatinine Ratio 9.4 ratio Low 10.0-22.0 [facility] Comment on above: Performed By: #### C BC, GFR, ANEU, BMP, ADIFF #### [address] [address] Calcium [Mass/Vol] 8.3 mg/dL Low 8.7-10.4 [facility] Comment on above: Performed By: #### C BC, GFR, ANEU, BMP, ADIFF #### [address] [address] Chloride [Moles/Vol] 111 mmol/L High 98-110 [facility] Comment on above: Performed By: #### C BC, GFR, ANEU, BMP, ADIFF #### [address] [address] CO2 [Moles/Vol] 20 mmol/L Low 22-32 [facility] Comment on above: Performed By: #### C BC, GFR, ANEU, BMP, ADIFF #### [address] [address] Creatinine [Mass/Vol] 5.85 mg/dL High 0.60-1.40 [facility] Comment on above: Result Comment: Test ing performed on New Relic analyzer using enzymatic creatinine methodology. Performed By: #### C BC, GFR, ANEU, BMP, ADIFF #### [address] [address] Electrolyte Balance 8.0 mEq/L Normal 4.0-15.0 [facility] Comment on above: Performed By: #### C BC, GFR, ANEU, BMP, ADIFF #### [address] [address] Glucose [Mass/Vol] 225 mg/dL High 70-110 [facility] Comment on above: Performed By: #### C BC, GFR, ANEU, BMP, ADIFF #### [address] [address] Potassium [Moles/Vol] 6.6 mmol/L Critically abnormal 3.5-5.0 [facility] Comment on above: Performed By: #### C BC, GFR, ANEU, BMP, ADIFF #### [place] [id number] Sodium [Moles/Vol] 139 mmol/L Normal 136-145 [facility] Comment on above: Performed By: #### C BC, GFR, ANEU, BMP, ADIFF #### [place] [address] Urea nitrogen [Mass/Vol] 55.0 mg/dL High 8.0-22.0 [facility] Comment on above: Performed By: #### C BC, GFR, ANEU, BMP, ADIFF #### [place] [address] CBCon 02-10-2025 Erythrocyte distribution width (RBC) [Ratio] 25.1 % High 11.5-15.5 [facility] Comment on above: Performed By: #### C BC, GFR, ANEU, BMP, ADIFF #### [place] [address] Hematocrit (Bld) [Volume fraction] 27.2 % Low 40.0-52.0 [facility] Comment on above: Performed By: #### C BC, GFR, ANEU, BMP, ADIFF #### [place] [address] Hgb 8.8 G/dL Low 13.0-17.5 [facility] Comment on above: Performed By: #### C BC, GFR, ANEU, BMP, ADIFF #### [place] [phone] MCH (RBC) [Entitic mass] 24.9 pg Low 27.0-33.0 [facility] Comment on above: Performed By: #### C BC, GFR, ANEU, BMP, ADIFF #### [place] [id number] MCHC 32.3 G/dL Normal 32.0-36.0 [facility] Comment on above: Performed By: #### C BC, GFR, ANEU, BMP, ADIFF #### [address] [address] MCV (RBC) [Entitic vol] 77.0 fL Low 81.0-100.0 [facility] Comment on above: Performed By: #### C BC, GFR, ANEU, BMP, ADIFF #### [place] [address] Platelet 211 10 3/mcL Normal 150-450 [facility] Comment on above: Performed By: #### C BC, GFR, ANEU, BMP, ADIFF #### [place] [address] Platelet mean volume (Bld) [Entitic vol] 8.4 fL Normal 6.4-10.5 [facility] Comment on above: Performed By: #### C BC, GFR, ANEU, BMP, ADIFF #### [place] [address] RBC 3.54 10 6/mcL Low 4.50-6.00 [facility] Comment on above: Performed By: #### C BC, GFR, ANEU, BMP, ADIFF #### [place] [address] WBC 7.5 10 3/mcL Normal 4.5-10.8 [facility] Comment on above: Performed By: #### C BC, GFR, ANEU, BMP, ADIFF #### [place] [address] CMPon 02-10-2025 Albumin Level 2.1 G/dL Low 3.2-4.8 [facility] Comment on above: Performed By: #### C BC, GFR, ANEU, BMP, ADIFF #### [place] [address] Albumin/Globulin [Mass ratio] 0.4 {ratio} Low 0.9-1.6 [facility] Comment on above: Performed By: #### C BC, GFR, ANEU, BMP, ADIFF #### [place] [address] ALP [Catalytic activity/Vol] 137 U/L High 38-126 [facility] Comment on above: Performed By: #### C BC, GFR, ANEU, BMP, ADIFF #### [address] [address] ALT [Catalytic activity/Vol] 10 U/L Low 12-55 [facility] Comment on above: Performed By: #### C BC, GFR, ANEU, BMP, ADIFF #### [address] [address] AST [Catalytic activity/Vol] 12 U/L Normal 8-34 [facility] Comment on above: Performed By: #### C BC, GFR, ANEU, BMP, ADIFF #### [address] [address] Bili Total 0.20 mg/dL Normal 0.20-1.20 [facility] Comment on above: Result Comment: Use of this assay is not recommended for patients undergoing treatment with eltrombopag due to the potential for falsely elevated results. Performed By: #### C BC, GFR, ANEU, BMP, ADIFF #### [place] [phone] BUN/Creatinine Ratio 9.2 ratio Low 10.0-22.0 [facility] Comment on above: Performed By: #### C BC, GFR, ANEU, BMP, ADIFF #### [place] [phone] Calcium [Mass/Vol] 8.0 mg/dL Low 8.7-10.4 [facility] Comment on above: Performed By: #### C BC, GFR, ANEU, BMP, ADIFF #### [address] [address] Chloride [Moles/Vol] 111 mmol/L High 98-110 [facility] Comment on above: Performed By: #### C BC, GFR, ANEU, BMP, ADIFF #### [place] [phone] CO2 [Moles/Vol] 19 mmol/L Low 22-32 [facility] Comment on above: Performed By: #### C BC, GFR, ANEU, BMP, ADIFF #### [facility] [address] [place], [place] [address] Creatinine [Mass/Vol] 5.86 mg/dL High 0.60-1.40 [facility] Comment on above: Result Comment: Test ing performed on New Relic analyzer using enzymatic creatinine methodology. Performed By: #### C BC, GFR, ANEU, BMP, ADIFF #### [address] [address] Electrolyte Balance 7.0 mEq/L Normal 4.0-15.0 [facility] Comment on above: Performed By: #### C BC, GFR, ANEU, BMP, ADIFF #### [address] [address] Globulin 5.1 G/dL High 1.5-3.8 [facility] Comment on above: Performed By: #### C BC, GFR, ANEU, BMP, ADIFF #### [address] [address] Glucose [Mass/Vol] 270 mg/dL High 70-110 [facility] Comment on above: Performed By: #### C BC, GFR, ANEU, BMP, ADIFF #### [address] [address] Potassium [Moles/Vol] 7.2 mmol/L Critically abnormal 3.5-5.0 [facility] Comment on above: Performed By: #### C BC, GFR, ANEU, BMP, ADIFF #### [address] [address] Sodium [Moles/Vol] 137 mmol/L Normal 136-145 [facility] Comment on above: Performed By: #### C BC, GFR, ANEU, BMP, ADIFF #### [address] [address] Total Protein 7.2 G/dL Normal 5.7-8.2 [facility] Comment on above: Performed By: #### C BC, GFR, ANEU, BMP, ADIFF #### [address] [address] Urea nitrogen [Mass/Vol] 54.0 mg/dL High 8.0-22.0 [facility] Comment on above: Performed By: #### C BC, GFR, ANEU, BMP, ADIFF #### [address] [address] Albumin Level 2.1 G/dL Low 3.2-4.8 [facility] Comment on above: Performed By: #### C BC, GFR, ANEU, BMP, ADIFF #### [address] [address] Albumin/Globulin [Mass ratio] 0.4 {ratio} Low 0.9-1.6 [facility] Comment on above: Performed By: #### C BC, GFR, ANEU, BMP, ADIFF #### [address] [address] ALP [Catalytic activity/Vol] 144 U/L High 38-126 [facility] Comment on above: Performed By: #### C BC, GFR, ANEU, BMP, ADIFF #### [place] [phone] ALT [Catalytic activity/Vol] 12 U/L Normal 12-55 [facility] Comment on above: Performed By: #### C BC, GFR, ANEU, BMP, ADIFF #### [address] [address] AST [Catalytic activity/Vol] 17 U/L Normal 8-34 [facility] Comment on above: Performed By: #### C BC, GFR, ANEU, BMP, ADIFF #### [place] [phone] Bili Total 0.20 mg/dL Normal 0.20-1.20 [facility] Comment on above: Result Comment: Use of this assay is not recommended for patients undergoing treatment with eltrombopag due to the potential for falsely elevated results. Performed By: #### C BC, GFR, ANEU, BMP, ADIFF #### [place] [phone] BUN/Creatinine Ratio 9.4 ratio Low 10.0-22.0 [facility] Comment on above: Performed By: #### C BC, GFR, ANEU, BMP, ADIFF #### [address] [address] Calcium [Mass/Vol] 8.3 mg/dL Low 8.7-10.4 [facility] Comment on above: Performed By: #### C BC, GFR, ANEU, BMP, ADIFF #### [address] [address] Chloride [Moles/Vol] 111 mmol/L High 98-110 [facility] Comment on above: Performed By: #### C BC, GFR, ANEU, BMP, ADIFF #### [address] [address] CO2 [Moles/Vol] 17 mmol/L Low 22-32 [facility] Comment on above: Performed By: #### C BC, GFR, ANEU, BMP, ADIFF #### [address] [address] Creatinine [Mass/Vol] 5.86 mg/dL High 0.60-1.40 [facility] Comment on above: Result Comment: Test ing performed on New Relic analyzer using enzymatic creatinine methodology. Performed By: #### C BC, GFR, ANEU, BMP, ADIFF #### [address] [address] Electrolyte Balance 10.0 mEq/L Normal 4.0-15.0 [facility] Comment on above: Performed By: #### C BC, GFR, ANEU, BMP, ADIFF #### [address] [address] Globulin 5.4 G/dL High 1.5-3.8 [facility] Comment on above: Performed By: #### C BC, GFR, ANEU, BMP, ADIFF #### [address] [address] Glucose [Mass/Vol] 235 mg/dL High 70-110 [facility] Comment on above: Performed By: #### C BC, GFR, ANEU, BMP, ADIFF #### [address] [address] Potassium [Moles/Vol] 7.1 mmol/L Critically abnormal 3.5-5.0 [facility] Comment on above: Performed By: #### C BC, GFR, ANEU, BMP, ADIFF #### [place] [phone] Sodium [Moles/Vol] 138 mmol/L Normal 136-145 [facility] Comment on above: Performed By: #### C BC, GFR, ANEU, BMP, ADIFF #### [place] [address] Total Protein 7.5 G/dL Normal 5.7-8.2 [facility] Comment on above: Performed By: #### C BC, GFR, ANEU, BMP, ADIFF #### [place] [address] Urea nitrogen [Mass/Vol] 55.0 mg/dL High 8.0-22.0 [facility] Comment on above: Performed By: #### C BC, GFR, ANEU, BMP, ADIFF #### [place] [address] HEPACon 02-10-2025 Hep A IgM Ab Non-Reactive Normal Non-Reacti [facility] MAIN Comment on above: Performed By: #### H EPAC #### [place] [address] Hep A IgM Ab Int [facility] MAIN Comment on above: Result Comment: No s erological evidence of a current Hepatitis A infection. See Interp Performed By: #### H EPAC #### [place] [address] Hep B Core IgM Ab Non-Reactive Normal Non-Reacti [facility] MAIN Comment on above: Performed By: #### H EPAC #### [place] [id number] Hep B Core IgM Ab Int Normal [facility] Comment on above: Result Comment: Samp les with a value < 0.80 Index are considered nonreactive (negative) for IgM antibodies to hepatitis B core antigen. See Interp Performed By: #### H EPAC #### [place] [id number] Hep B Surf Ag Non-Reactive Normal Non-Reacti [facility] MAIN Comment on above: Performed By: #### H EPAC #### [place] [address] Hep C Ab Non-Reactive Normal Non-Reacti ve [facility] Comment on above: Performed By: #### H EPA #### [place] [address] Hep C Ab Int Normal [facility] Comment on above: Result Comment: Nonr eactive: Samples with a value < 0.80 are considered nonreactive (negative) for antibodies to HCV. A negative test result does not exclude the possibility of exposure to or infection with HCV. HCV antibodies may be undetectable in some stages of the infection and in some clinical conditions. See Interp Performed By: #### H EPA #### [place] [address] Rainer 02-10-2025 Potassium [Moles/Vol] 7.1 mmol/L Critically abnormal 3.5-5.0 [facility] Comment on above: Performed By: #### K #### [place] [address] Potassium [Moles/Vol] 7.1 mmol/L Critically abnormal 3.5-5.0 [facility] Comment on above: Performed By: #### C BC, GFR, ANEU, BMP, ADIFF #### [place] [address] LABORATORYOrdered By: Trena Vilchis on 02-10-2025 Blood Glucose Interventions Administered agent to decrease blood sugar (02/10/25 11:20 AM) [facility] Work Phone: LABORATORYOrdered By: Yadira Paulino on 02-10-2025 HAV IgM IA Ql Non-Reactive (02/10/25 10:34 AM) Normal Non-Reacti ve ADM SS HAV IgM IA Ql No serological evide nce of a current Hepatitis A infection. Invalid Interpretation Code Chemistry S HBV core IgM IA Ql Non-Reactive (02/10/25 10:34 AM) Normal Non-Reacti ve AH ADM SS HBV core IgM IA Ql Samples with a value < 0.80 Index are considered nonreactive (negative) for IgM antibodies to hepatitis B core antigen. Invalid Interpretation Code Chemistry S HBV surface Ag IA Ql Non-Reactive (02/10/25 10:34 AM) Normal Non-Reacti ve AH ADM SS HCV Ab IA Ql Non-Reactive (02/10/25 10:34 AM) Normal Non-Reacti ve AH ADM SS HCV Ab IA Ql Nonreactive: Samples with a value < 0.80 are considered nonreactive (negative) for antibodies to HCV. A negative test result does not exclude the possibility of exposure to or infection with HCV. HCV antibodies may be undetectable in some stages of the infection and in some clinical conditions. Invalid Interpretation Code Chemistry S LABORATORYOrdered By: SYSTEM SYSTEM on 02-10-2025 Albumin BCP dye [Mass/Vol] 2.1 G/dL Low 3.2 - 4.8 G/dL ADM SS Albumin/Globulin [Mass ratio] 0.4 {ratio} Low 0.9 - 1.6 ratio ADM SS ALP [Catalytic activity/Vol] 137 U/L High 38 - 126 U/L ADM SS ALT No additional P-5'-P [Catalytic activity/Vol] 10 U/L Low 12 - 55 U/L ADM SS AST [Catalytic activity/Vol] 12 U/L Normal 8 - 34 U/L ADM SS Bilirubin [Mass/Vol] 0.20 mg/dL Normal 0.20 - 1.20 mg/dL ADM SS Comment on above: Interpretive Data: U se of this assay is not recommended for patients undergoing treatment with eltrombopag due to the potential for falsely elevated results. Globulin 5.1 G/dL High 1.5 - 3.8 G/dL ADM SS Protein [Mass/Vol] 7.2 G/dL Normal 5.7 - 8.2 G/dL ADM SS Albumin BCP dye [Mass/Vol] 2.1 G/dL Low 3.2 - 4.8 G/dL ADM SS Albumin/Globulin [Mass ratio] 0.4 {ratio} Low 0.9 - 1.6 ratio ADM SS ALP [Catalytic activity/Vol] 144 U/L High 38 - 126 U/L ADM SS ALT No additional P-5'-P [Catalytic activity/Vol] 12 U/L Normal 12 - 55 U/L ADM SS Anisocytosis Ql (Bld) 2+ *NA* (02/10/25 4:55 AM) Invalid Interpretation Code Workflow SS AST [Catalytic activity/Vol] 17 U/L Normal 8 - 34 U/L ADM SS Bilirubin [Mass/Vol] 0.20 mg/dL Normal 0.20 - 1.20 mg/dL ADM SS Comment on above: Interpretive Data: U se of this assay is not recommended for patients undergoing treatment with eltrombopag due to the potential for falsely elevated results. Globulin 5.4 G/dL High 1.5 - 3.8 G/dL ADM SS Glucose [Mass/Vol] 197 mg/dL Invalid Interpretation Code AH Auto Chem SS Comment on above: Interpretive Data: E stimated average glucose (eAG) is a calculated value from Hemoglobin A1C and is community engagement representative of the average blood glucose level in the last 2-3 month period. Normal range: less than 114 mg/dL HbA1c (Bld) [Mass fraction] 8.5 % High 4.0 - 6.0 % Auto Chem SS Hypochromia Ql (Bld) 1+ *NA* (02/10/25 4:55 AM) Invalid Interpretation Code Workflow SS Magnesium [Mass/Vol] 1.9 mg/dL Normal 1.6 - 2 .4 mg/dL ADM SS Microcytes Ql (Bld) 1+ *NA* (02/10/25 4:55 AM) Invalid Interpretation Code AH Workflow SS Ovalocytes LM Ql (Bld) 1+ *NA* (02/10/25 4:55 AM) Invalid Interpretation Code Workflow SS Phosphate [Mass/Vol] 9.1 mg/dL Invalid Interpretation Code 2.4 - 5.1 mg/dL ADM Comment on above: Interpretive Data: * *Note - New Reference Range in effect 20 Platelets LM Ql (Bld) Normal *NA* (02/10/25 4:55 AM) Invalid Interpretation Code AH Workflow SS Poikilocytosis LM Ql (Bld) 1+ *NA* (02/10/25 4:55 AM) Invalid Interpretation Code Workflow SS Protein [Mass/Vol] 7.5 G/dL Normal 5.7 - 8.2 G/dL ADM LABORATORYOrdered By: Arun enciso on 02-10-2025 Cholesterol [Mass/Vol] 94 mg/dL Normal 50 - 199 mg/dL ADM Comment on above: Interpretive Data: C holesterol Reference Interval: Less than 200 Desirable 200-239 Borderline high risk 240 and above High risk Cholesterol in HDL [Mass/Vol] 35 mg/dL Low 40 - 59 mg/dL AH ADM SS Cholesterol in LDL [Mass/Vol] 46 mg/dL Normal 0 - 129 mg/dL ADM SS Triglyceride [Mass/Vol] 67 mg/dL Normal 3 - 149 mg/dL ADM SS LABORATORYOrdered By: Benja Glover on 02-10-2025 Blood Glucose Interventions Administered agent to decrease blood sugar (02/10/25 3:42 AM) [facility] Work Phone: LIPIDon 02-10-2025 Cholesterol [Mass/Vol] 94 mg/dL Normal 50-199 [facility] Comment on above: Result Comment: Chol esterol Reference Interval: Less than 200 Desirable 200-239 Borderline high risk 240 and above High risk Performed By: #### C BC, GFR, ANEU, BMP, ADIFF #### [address] [address] Cholesterol in HDL [Mass/Vol] 35 mg/dL Low 40-59 [facility]IN Comment on above: Performed By: #### C BC, GFR, ANEU, BMP, ADIFF #### [address] [address] Cholesterol in LDL [Mass/Vol] 46 mg/dL Normal 0-129 [facility] Comment on above: Performed By: #### C BC, GFR, ANEU, BMP, ADIFF #### [address] [address] Triglyceride [Mass/Vol] 67 mg/dL Normal 3-149 [facility] MAIN Comment on above: Performed By: #### C BC, GFR, ANEU, BMP, ADIFF #### [address] [address] MGon 02-10-2025 Magnesium [Mass/Vol] 1.9 mg/dL Normal 1.6-2.4 [facility] MAIN Comment on above: Performed By: #### C BC, GFR, ANEU, BMP, ADIFF #### [address] [address] PHOSon 02-10-2025 Phosphate [Mass/Vol] 9.1 mg/dL Critically abnormal 2.4-5.1 [facility] Comment on above: Result Comment: No te - New Reference Range in effect 20 Performed By: #### C BC, GFR, ANEU, BMP, ADIFF #### [facility] [address] [place], [place] [id number] US RENALon 02-10-2025 US RENAL ORIGINAL EXAMINATION: ULTRASOUND OF THE KIDNEYS 02/10/2025 5:30 am COMPARISON: 06/23/2024 HISTORY: ORDERING SYSTEM PROVIDED HISTORY: Reason for Exam: GENE on CKD FINDINGS: The right kidney measures 11.2 in length and the left kidney measures 11.2 in length. Kidneys demonstrate normal cortical echogenicity. No hydronephrosis or intrarenal stones. No focal lesions. The urinary bladder appears unremarkable with a calculated prevoid volume of 346 cc. The prostate is within normal limits for size. IMPRESSION: Unremarkable ultrasound of the kidneys. I have personally reviewed the images of this examination and agree with the resident's findings and interpretation. Interpreted by: Lina Armando MD Preliminary Report By: Eliana Rivero Electronically signed By Lina Armando MD Dictated Date: 02/10/2025 6:16:48 AM Prelim Date: 02/10/2025 6:22:11 AM Sign Date: 02/10/2025 6:52:46 AM Ordering Provider: MARTÍN KEY [facility] XR CHEST 1 VIEWon 02-10-2025 XR CHEST 1 VIEW ORIGINAL EXAMINATION: ONE XRAY VIEW OF THE CHEST 02/10/2025 6:37 am COMPARISON: None. HISTORY: ORDERING SYSTEM PROVIDED HISTORY: Reason for Exam: Shortness of breath FINDINGS: Mild cardiomegaly is redemonstrated. Interstitial and alveolar haziness throughout the lungs bilaterally peers unchanged. No pneumothorax or large effusion. Hypoventilatory changes are present. IMPRESSION: No interval change. Interpreted by: Lina Armando MD Preliminary Report By: Lina Armando MD Electronically signed By Lina Armando MD Dictated Date: 02/10/2025 6:47:44 AM Prelim Date: 02/10/2025 6:48:10 AM Sign Date: 02/10/2025 6:48:10 AM Ordering Provider: MARTÍN KEY [facility] .GFRon 02-09-2025 Estimated Glomerular Filtration Rate 10 ml/min/1.73sqm Normal [facility] Comment on above: Result Comment: Stages of Chronic Kidney Disease (CKD) Stage Description eGFR(ml/min/1.73 sq.m.) CKD 1 Normal kidney function or >=90 normal kindney function with possible kidney damage (ex. Proteinuria) CKD 2 Kidney damage with mild loss 60-89 of kidney function CKD 3a Mild to moderate loss of kidney 45-59 function CKD 3b Moderate to severe loss of 30-44 of kindey function CKD 4 Severe loss of kidney function 15-29 CKD 5 Kidney failure <15 Note: (go live 2024) the eGFR calculation was updated to the 2020 CKD-EPI creatinine equation without a race factor to calculate the eGFR results. Performed By: #### C VFLURV #### [place] [address] .MDWon 02-09-2025 Monocyte Distribution Width 17.38 Normal 0.00-20.00 [facility] Comment on above: Result Comment: For ED adult patients suspected of sepsis, MDW<=20.0 does not rule out sepsis or risk of sepsis Performed By: #### G FR, PBNP, MDW, DIFF, CBC, MG, BMP, MORPH, TROPHS, DIMER #### [place] [address] .Manual Diffon 02-09-2025 Basophil %, Manual 0.0 % Normal 0.0-2.5 [facility] Comment on above: Performed By: #### G FR, PBNP, MDW, DIFF, CBC, MG, BMP, MORPH, TROPHS, DIMER #### [place] [address] Basophil, Abs Manual 0.0 10 3/mcL Normal 0.0-0.2 [facility] Comment on above: Performed By: #### G FR, PBNP, MDW, DIFF, CBC, MG, BMP, MORPH, TROPHS, DIMER #### [place] [address] Eosinophil %, Manual 5.0 % Normal 0.0-7.0 [facility] Comment on above: Performed By: #### G FR, PBNP, MDW, DIFF, CBC, MG, BMP, MORPH, TROPHS, DIMER #### [address] [address] Eosinophil, Abs Manual 0.4 10 3/mcL Normal 0.0-0.7 [facility] Comment on above: Performed By: #### G FR, PBNP, MDW, DIFF, CBC, MG, BMP, MORPH, TROPHS, DIMER #### [address] [address] Lymphocyte %, Manual 12.0 % Low 20.0-40.0 [facility] Comment on above: Performed By: #### G FR, PBNP, MDW, DIFF, CBC, MG, BMP, MORPH, TROPHS, DIMER #### [address] [address] Lymphocyte, Abs Manual 0.8 10 3/mcL Low 0.9-4.3 [facility] Comment on above: Performed By: #### G FR, PBNP, MDW, DIFF, CBC, MG, BMP, MORPH, TROPHS, DIMER #### [address] [address] Monocyte %, Manual 6.0 % Normal 2.0-13.0 [facility] Comment on above: Performed By: #### G FR, PBNP, MDW, DIFF, CBC, MG, BMP, MORPH, TROPHS, DIMER #### [address] [address] Monocyte, Abs Manual 0.4 10 3/mcL Normal 0.1-1.4 [facility] Comment on above: Performed By: #### G FR, PBNP, MDW, DIFF, CBC, MG, BMP, MORPH, TROPHS, DIMER #### [address] [address] Neutrophil %, Manual 77.0 % High 50.0-75.0 [facility] Comment on above: Performed By: #### G FR, PBNP, MDW, DIFF, CBC, MG, BMP, MORPH, TROPHS, DIMER #### [address] [address] Neutrophil, Abs Manual 5.5 10 3/mcL Normal 2.3-8.1 [facility] Comment on above: Performed By: #### G FR, PBNP, MDW, DIFF, CBC, MG, BMP, MORPH, TROPHS, DIMER #### [address] [address] Nucleated RBC 0.0 /100 WBC Normal [facility] Comment on above: Performed By: #### G FR, PBNP, MDW, DIFF, CBC, MG, BMP, MORPH, TROPHS, DIMER #### [address] [address] .Morphon 02-09-2025 Anisocytosis Ql (Bld) 2+ Normal [facility] Comment on above: Performed By: #### G FR, PBNP, MDW, DIFF, CBC, MG, BMP, MORPH, TROPHS, DIMER #### [address] [address] Ovalocytes 1+ Normal [facility] Comment on above: Performed By: #### G FR, PBNP, MDW, DIFF, CBC, MG, BMP, MORPH, TROPHS, DIMER #### [address] [address] Platelet Estimate Normal Normal [facility] Comment on above: Performed By: #### G FR, PBNP, MDW, DIFF, CBC, MG, BMP, MORPH, TROPHS, DIMER #### [address] [address] Poik 1+ Normal [facility] Comment on above: Performed By: #### G FR, PBNP, MDW, DIFF, CBC, MG, BMP, MORPH, TROPHS, DIMER #### [address] [address] .Urinalysis Microscopic (AO) on 02-09-2025 UA RBC 5-10 Abnormal None Seen [facility] Comment on above: Performed By: #### U Vernon UAMICAO #### [address] [address] UA Squam Epithelial 0-5 Abnormal None Seen [facility] Comment on above: Performed By: #### U A UAMICAO #### [address] [address] UA WBC LOADED Abnormal None Seen [facility] Comment on above: Performed By: #### Gloria Junior UAM[place]O #### [address] [address] BMPon 02-09-2025 BUN/Creatinine Ratio 9 ratio Normal 7-27 [facility] Comment on above: Performed By: #### C VFLURV #### [address] [address] Calcium [Mass/Vol] 8.0 mg/dL Low 8.4-10.2 [facility] Comment on above: Performed By: #### C VFLURV #### [address] [address] Chloride [Moles/Vol] 107 mmol/L Normal 98-107 [facility] Comment on above: Performed By: #### C VFLURV #### [address] [address] CO2 [Moles/Vol] 20 mmol/L Low 22-29 [facility] Comment on above: Performed By: #### C VFLURV #### [address] [address] Creatinine [Mass/Vol] 6.19 mg/dL High 0.70-1.30 [facility] Comment on above: Result Comment: Test ing performed on Siemens Dimension EXL analyzer using a modified kinetic Vickie technique. Performed By: #### C VFLURV #### [address] [address] Electrolyte Balance 10.0 mEq/L Normal 4.0-15.0 [facility] Comment on above: Performed By: #### C VFLURV #### [address] [address] Glucose [Mass/Vol] 220 mg/dL High 70-105 [facility] Comment on above: Performed By: #### C VFLURV #### [address] [address] Potassium [Moles/Vol] 7.9 mmol/L Critically abnormal 3.5-5.1 [facility] Comment on above: Performed By: #### C VFLURV #### [address] [address] Sodium [Moles/Vol] 137 mmol/L Normal 136-145 [facility] Comment on above: Performed By: #### C VFLURV #### [address] [address] Urea nitrogen [Mass/Vol] 57 mg/dL High 7-18 [facility] Comment on above: Performed By: #### C VFLURV #### [address] [address] CBCon 02-09-2025 Erythrocyte distribution width (RBC) [Ratio] 25.9 % High 11.5-15.5 [facility] Comment on above: Performed By: #### G FR, PBNP, MDW, DIFF, CBC, MG, BMP, MORPH, TROPHS, DIMER #### [address] [address] Hematocrit (Bld) [Volume fraction] 28.4 % Low 40.0-52.0 [facility] Comment on above: Performed By: #### G FR, PBNP, MDW, DIFF, CBC, MG, BMP, MORPH, TROPHS, DIMER #### [address] [address] Hgb 9.0 G/dL Low 13.0-17.5 [facility] Comment on above: Performed By: #### G FR, PBNP, MDW, DIFF, CBC, MG, BMP, MORPH, TROPHS, DIMER #### [address] [address] MCH (RBC) [Entitic mass] 24.5 pg Low 27.0-33.0 [facility] Comment on above: Performed By: #### G FR, PBNP, MDW, DIFF, CBC, MG, BMP, MORPH, TROPHS, DIMER #### [address] [address] MCHC 31.8 G/dL Low 32.0-36.0 [facility] Comment on above: Performed By: #### G FR, PBNP, MDW, DIFF, CBC, MG, BMP, MORPH, TROPHS, DIMER #### [place] [address] [place] [address] MCV (RBC) [Entitic vol] 76.9 fL Low 81.0-100.0 [facility] Comment on above: Performed By: #### G FR, PBNP, MDW, DIFF, CBC, MG, BMP, MORPH, TROPHS, DIMER #### [place] [address] Platelet 225 10 3/mcL Normal 150-450 [facility] Comment on above: Performed By: #### G FR, PBNP, MDW, DIFF, CBC, MG, BMP, MORPH, TROPHS, DIMER #### [place] [address] Platelet mean volume (Bld) [Entitic vol] 7.8 fL Normal 6.4-10.5 [facility] Comment on above: Performed By: #### G FR, PBNP, MDW, DIFF, CBC, MG, BMP, MORPH, TROPHS, DIMER #### [place] [id number] RBC 3.70 10 6/mcL Low 4.50-6.00 [facility] Comment on above: Performed By: #### G FR, PBNP, MDW, DIFF, CBC, MG, BMP, MORPH, TROPHS, DIMER #### [place] [address] WBC 7.1 10 3/mcL Normal 4.5-10.8 [facility] Comment on above: Performed By: #### G FR, PBNP, MDW, DIFF, CBC, MG, BMP, MORPH, TROPHS, DIMER #### [place] [address] CVFLURVon 02-09-2025 FLU A PCR Negative Normal Negative [facility] Comment on above: Performed By: #### C VFLURV #### [place] [address] FLU B PCR Negative Normal Negative [facility] Comment on above: Performed By: #### C VFLURV #### [place] [address] RSV PCR Negative Normal Negative [facility] Comment on above: Performed By: #### C VFLURV #### [place] [address] SARS-CoV-2 (COVID-19) RNA MAZIN+probe Ql (Unsp spec) Negative Normal Negative [facility] Comment on above: Result Comment: Resu lts from the Xpert Xpress CoV-2/Flu/RSV plus test should be correlated with the clinical history, epidemiological data, and other data available to the clinical evaluating the patient. Performance of the Xpert Xpress CoV-2/Flu/RSV plus test has only been established in nasopharyngeal swab specimen. Erroneous test results might occur from improper specimen collection, failure to follow the recommended sample collection, handling and storage procedures, technical error, or sample mix-up. False negative results may occur if a virus is present at a level below the analytical limit of detection. Viral nucleic acid may persist in vivo, independent of virus viability. Detection of analyte target(s) does not imply that the corresponding virus(es) are infectious or are the causative agents for clinical symptoms. Recent patient exposure to FluMist or other live attenuated influenza vaccines may cause inaccurate positive results. Performed By: #### C VFLURV #### [address] [address] DIMERon 02-09-2025 D-Dimer 374 ng/mL D-DU High 0-230 [facility] Comment on above: Result Comment: Resu lts reported in D-DU ng/mL. Positive for D-dimer. A positive D-Dimer may occur in the following: DVT, PE, DIC, Trauma, Cancer, Sepsis, , Rheumatoid arthritis, Myocardial infarction and Cirrhosis. The presence of Rheumatoid Factor and HAMA (human mouse antibody) produces an overestimation of test results. The result of the D-Dimer test should be evaluated in the context of all the clinical and laboratory data available. In those instances where the laboratory result does not agree with the clinical evaluation, additional tests should be performed accordingly. If the D-Dimer result is used to exclude DVT or PE, the recommended cutoff value is less than 230 ng/mL. The D-Dimer result should not be used alone to rule in DVT/PE, but should be used in conjunction with a clinical pretest probability (PTP)assessment model to exclude venous thromboembolism (VTE) in patients suspected of deep venous thrombosis (DVT) and pulmonary embolism (PE). Performed By: #### G FR, PBNP, MDW, DIFF, CBC, MG, BMP, MORPH, TROPHS, DIMER #### [address] [address] Rainer 02-09-2025 Potassium [Moles/Vol] 6.4 mmol/L Critically abnormal 3.5-5.1 [facility] Comment on above: Performed By: #### C VFLURV #### [address] [address] Potassium [Moles/Vol] 6.4 mmol/L Critically abnormal 3.5-5.1 [facility] Comment on above: Performed By: #### K #### [address] [address] MGon 02-09-2025 Magnesium [Mass/Vol] 2.0 mg/dL Normal 1.8-2.4 [facility] Comment on above: Performed By: #### C VFLURV #### [address] [address] PBNPon 02-09-2025 Natriuretic peptide B (Bld) [Mass/Vol] 186[address] pg/mL High 0-125 [facility] Comment on above: Result Comment: NT-p roBNP results of less than 300 pg/mL effectively rules out acute congestive heart failure with 99% negative predictive value. Performed By: #### C VFLURV #### [address] [address] TROPHSon 02-09-2025 High Sensitivity Troponin I 19 ng/L Normal 0-76 [facility] Comment on above: Result Comment: High Sensitive Troponin I Reference Ranges: Female: 0-51 ng/L Male: 0-76 ng/L Testing performed on Stayful using a homogeneous sandwich chemiluminescent immunoassay based on Trusper technology. Performed By: #### C VFLURV #### [place] [address] UAon 02-09-2025 Color (U) Yellow Normal [facility] Comment on above: Performed By: #### U A, UAMICAO #### [place] [address] Glucose (U) [Mass/Vol] 250 mg/dL Abnormal Negative [facility] Comment on above: Performed By: #### U A, UAM[place]O #### [place] [address] Ketones Ql (U) Negative Normal Negative [facility] Comment on above: Performed By: #### U A, UAM[place]O #### [place] [address] UA Appear Clear Normal Clear [facility] Comment on above: Performed By: #### U A, UAM[place]O #### [place] [address] UA Blood Large Abnormal Negative [facility] Comment on above: Performed By: #### U A, U[place]O #### [place] [address] UA Leuk Est Small Abnormal Negative [facility] Comment on above: Performed By: #### U A, [place]O #### [place] [address] UA Nitrite Negative Normal Negative [facility] Comment on above: Performed By: #### U A, UAM[place]O #### [place] [address] UA pH 6.5 Normal 5.0 - 8.0 [facility] Comment on above: Performed By: #### U A UAM[place]O #### [place] [address] UA Protein >=300 Abnormal Negative [facility] Comment on above: Performed By: #### U A UAMICAO #### [place] [address] UA Spec Grav >=1.030 Abnormal 1.015-1.02 5 [facility] Comment on above: Performed By: #### U A [place]AM[place]O #### [place] [address] UA Specimen Type Clean Catch Normal [facility] Comment on above: Performed By: #### U Vernon UAM[place]O #### [place] [address] UA Urobilinogen 0.2 E.U./dL Normal 0.2-1.0 [facility] Comment on above: Performed By: #### U Vernon UAM[place]O #### [place] [address] Urobilinogen (U) [Mass/Vol] Negative Normal Negative [facility] Comment on above: Performed By: #### U A UAMICAO #### [place] [address] XR CHEST 1 VIEWon 02-09-2025 XR CHEST 1 VIEW ORIGINAL EXAMINATION: ONE XRAY VIEW OF THE CHEST02/09/2025 7:59 pm COMPARISON: 05/08/2024 HISTORY: ORDERING SYSTEM PROVIDED HISTORY: Reason for Exam: dyspnea FINDINGS: Cardiomediastinal contours are stable. Chronic elevation of the right hemidiaphragm. Mild bilateral interstitial and central pulmonary vascular prominence with haziness the lungs. No pleural effusion or visible pneumothorax. No acute osseous abnormality.. IMPRESSION: Mild bilateral interstitial and central pulmonary vascular prominence with haziness in the lungs can be seen with pulmonary edema in the proper clinical setting. Difficult to exclude atypical infectious or inflammatory process. I have personally reviewed the images of this examination and agree with the resident's findings and interpretation. Interpreted by: Daniel Leal Preliminary Report By: Ramon Valentin Electronically signed By Daniel Leal Dictated Date: 02/09/2025 8:03:55 PM Prelim Date: 02/09/2025 8:08:23 PM Sign Date: 02/09/2025 8:17:46 PM Ordering Provider: JIMENA HOGAN [facility] 02-05-2025 36 Noted. Agree with disposition. [facility] 36 S: Patient spoke emely mccoy [facility] nurse regarding trouble breathing at night. B: Onset of symptoms 3 days. A: When he lays down he fights for air, legs are swollen new, swelling to his knees, when he sits up he is okay, BS this am 115. R: Appointment scheduled and patient's convenience, address given to the patient, instructed to bring photo ID, insurance info and medication list to the appointment. Instructed to elevate legs, decrease sodium intake, if sx's change or get worse will need to be sen I the ER for eval. Patient understands care advice. No further needs at this time. Patient instructed to call back with new or worsening symptoms. Reason for Disposition [1] MILD difficulty breathing (e.g., minimal/no SOB at rest, SOB with walking, pulse <100) AND [2] NEW-onset or WORSE than normal Protocols used: Breathing [id number] [place] [id number] 36 Rx sent [facility] 01-28-2025 36 Called patient and l eft detailed VM about message below. Advised to call office with any questions. Normal [facility] 36 Please let patient k now that the wound culture from the office is growing staph. Will send Bactrim Rx to his pharmacy for 10 days Normal [facility] [id number] 01-27-2025 [id number] 09-22-24 CSMA Gabapentin Normal [facility] 3601-27-2025 36 Rx sent, OARRS repor t done, no inconsistencies, CS agreement in place [place] [id number] 36 Spoke to pts ab out upcoming PAT 02/19/2025 and Surgery 02/26/2025 at [facility] Doctor: Prince HERNÁNDEZ (arrive 15 min early): 02/19/2025 2:00 PM PAT instructions: Please bring photo ID, insurance card, list of all current medications Surgery: 02/26/2025 9:30 AM Surgery arrival time: 7:30 AM Surgery instructions: Nothing to eat after midnight. Can have clear liquids black coffee (no cream or dairy), tea, water, Sprite, apple juice, Gatorade (no reds or purples) up until arrival time. Medication instructions: Hold Aspirin, fish oil and over the counter vitamins 3 days prior to surgery [facility] 36 Lvm to discuss upcom ing PAT and surgery as well as instructions [facility] Office Visiton 01-22-2025 Follow-up visit [id number] Gurinder Hahn 1975 M Date Provider Department Center 01/22/2025 [id number]-VUVAJJOSE MORRISONElizabeth URO BAR None Family History Adopted: Yes Problem Relation Age of Onset No Known Problems Mother High Blood Pressure Father Heart disease Father COPD Father Diabetes Father Family Status - Relation Status Age at Mother Father Level of Service:85034 [place] OFFICE/OUTPATIENT ESTABLISHED MOD MDM 30 MIN Reason for Visit and Comments: Other [0] - 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 Hahn is a 49 y.o. male who presents to the office for follow up of Claire's gangrene Unable to locate operative reports from [facility] to determine exactly what was done besides debridement and primary closure. 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, prior extensive Claire's debridement of the scrotum and pelvis, R orch, ICU stay, voiding issues with fistula through SP region, wound care, CT, jonathan cysto, RUG, cystogram, pyelograms, Nephro referral 09/17/24 progress note wound care ([facility]) - reported Claire's back in March 2024 requiring multiple debridement and ICU stay, reported to have had a catheter at rehab but removed it himself, started to notice leakage of urine from somewhere besides penis 04/16/24 presented to [facility] - septic shock 2/2 Claire's gangrene, req intubation in ED, 2-3 debridements and eventually primary closure, discharged 05/06/24 Review of Systems Genitourinary: Negative for difficulty urinating, flank pain, hematuria, penile pain, penile swelling and scrotal swelling. Denies respiratory difficulty Denies distress Medications Current Outpatient Medications: acetaminophen (Tylenol) 500 MG tablet, TAKE 1 TABLET (500 MG) BY MOUTH EVERY 6 HOURS NEEDED FOR MILD PAIN (1-3) OR MODERATE PAIN (4-6), Disp: 60 tablet, Rfl: 0 Alcohol Swabs (B-D SINGLE USE SWABS REGULAR) pads, use three times a day as directed, Disp: 120 each, Rfl: 2 B-D UF III MINI PEN NEEDLES 31G X 5 MM misc, Inject 100 each under the skin daily. As directed, Disp: 100 each, Rfl: 2 Continuous Glucose Head Rigger (FreeStyle Yanni 3 [place]) device, Use as directed, Disp: 1 each, Rfl: 0 Continuous Glucose Sensor (FreeStyle Yanni 3 Sensor) [facility] [place], every 14 (fourteen) days., Disp: 2 each, Rfl: 5 gabapentin (Neurontin) 300 MG capsule, Take 1 capsule (300 mg) by mouth Nightly., Disp: 30 capsule, Rfl: 0 glimepiride (Amaryl) 4 MG tablet, Take 2 tablets (8 mg) by mouth daily (with breakfast)., Disp: 180 tablet, Rfl: 1 glucose blood (True Metrix Blood Glucose Test) test strip, use 1 TEST STRIP to TEST BLOOD SUGAR twice a day, Disp: 100 strip, Rfl: 1 Lantus SoloStar 100 UNIT/ML pen, inject 16 units subcutaneously nightly, Disp: , Rfl: melatonin 3 MG tablet, TAKE 3 MG BY MOUTH NIGHTLY NEEDED (SLEEP)., Disp: 30 tablet, Rfl: 0 metoprolol succinate XL (Toprol-XL) 100 MG 24 hr tablet, Take 100 mg by mouth daily., Disp: , Rfl: omeprazole (PriLOSEC) [address] capsule, Take 1 capsule (40 mg) by mouth 2 times daily (before meals). Do not crush or chew., Disp: 60 capsule, Rfl: 2 polyethylene glycol, PEG, 3350 (Miralax) 17 g packet, Take 17 g by mouth daily. (Patient taking differently: Take 17 g by mouth as needed.), Disp: 30 packet, Rfl: 2 rosuvastatin (Crestor) 10 MG tablet, Take 1 tablet (10 mg) by mouth daily., Disp: 90 tablet, Rfl: 1 triamterene-hydrochlorot hiazide (Maxzide-25) 37.5-25 MG tablet, Take 1 tablet by mouth daily., Disp: , Rfl: Eliquis 5 MG tablet, Take 1 tablet (5 mg) by mouth 2 times daily. (Patient not taking: Reported on 01/22/2025), Disp: 60 tablet, Rfl: 5 Vitals: BP (!) 215/128 Comment: Dr Morrison advised Pulse 94 Ht 6' 2 (1.88 m) Wt 300 lb (136 kg) BMI 38.52 kg/m? Physical Exam Physical Exam Constitutional: General: He is not in acute distress. Appearance: He is obese. He is not ill-appearing. HENT: Head: Normocephalic and atraumatic. Right Ear: External ear normal. Left Ear: External ear normal. Nose: Nose normal. Eyes: Extraocular Movements: Extraocular movements intact. Pulmonary: Effort: Pulmonary effort is normal. No respiratory distress. Genitourinary: Comments: Purulence from midline suprapubic defect Testicle is palpable in the scrotum (favoring the right side) No scrotal fluctuance Induration suprapubically Neurological: Mental Status: He is alert. LABS: Lab Results Component Value Date PSA 0.377 06/22/2021 PSA 0.437 12/12/2019 No results found for: TESTOSTERONE Lab Results Compon (more content not included)... [facility] Progress Note We want to inform spike chu that your patient's blood pressure was noted to be elevated in our office today. We thank you for trusting us with your patient's health. Last BP: BP Readings from Last 3 Encounters: 01/22/25 (!) 215/128 12/09/24 139/73 09/22/24 138/86 [facility] Progress Note Please contact Isai and see if he can come in for a blood pressure check [facility] 36on 01-05-2025 36 Reviewed chart. Refi ll not appropriate, too soon. RX refused [facility] 36 Prescription Request : Last medication check: 09/22/24 Last physical exam: none Next scheduled appointment: 02/02/25 CSA 09/22/24 Last date of refill on this medication 12/29/24 [facility] 36on 12-30-2024 36 Lisset called in to cancel 12/30/24 appt in [place] w/DR Morrison states the patient isn't feeling well. Appt was already cancelled through [employer]. No rescheduling at this time. [facility] [id number] 12-29-2024 [id number] 09-22-24 CSMA Gabapentin Normal [facility] 36on 12-29-2024 36 See [facility] 36 Rx re-sent since pharmacy is stating they do not have refill on file. OARRS report reviewed with no discrepancies. CSA signed in September 2024. [facility] 36 Spoke with DINA vasquez, states they do not have an active prescription on file for him. States the last one they have is from 11/21. Please send in new script. Thank you! [facility] 36 Name of caller: Gurinder Contact phone number: [phone] Relationship to Patient: patient Provider: Jair Practice: [facility] Chief Complaint/Reason for Call: Patient states his girlfriend called the pharmacy and was told no prescription for medication gabapentin (Neurontin) 300 MG capsule was put in for 12/22/24. Patient is completely out of medication. Please advise patient. Best time of day caller can be reached: any Patient advised that office/PCP has 24-48 business hours to return their call: Yes [facility] 36 Refill not due at th is time. [facility] 36 Refill not due at th is time. [facility] 36 Sent 12/22/2024 please refuse. [facility] 36 Duplicate please refuse. [place] [id number] Not due for refill a t this time. [facility] 36 Melatonin and Tyleno l just sent on 12/22/2024 Rosuvastatin sent on 09/24/2024 for 90 days w/1 refill [facility] 36on 12-24-2024 36 L[place] called in stat ing she needs to cancel the patient's appt today 12/24/24 11:50 AM [place] w/DR Morrison. R/S now 12/30/24 9:40 AM w/DR Morrison in [place]. [facility] 36 Will discuss at his visit today. [place] [address]on 12-22-2024 36 Rx sent. Follow up a s scheduled. [facility] 36 Rx sent. Follow up a s scheduled. [facility] 36 Prescription Request : Last medication check: 09/22/24 Last physical exam: none Next scheduled appointment: 12/24/24 Last date of refill on this medication 10/27/24 60 tablets no refill [place] [id number] Prescription Request : Last medication check: 09/22/24 Last physical exam: none Next scheduled appointment: 12/24/24 Last date of refill on this medication 11/20/24 30 and no refill [facility] 36on 12-16-2024 36 Pts gf called in to r/s appt on 12/18. He is now scheduled 12/24/[address] Morrison in [place] [facility] 36on 12-15-2024 36 Rx sent with a start date of 12/22/24 based on fill date in OARRS. OARRS report reviewed with no discrepancies. CSA signed in September 2024. 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 - Gross hematuria- Chronic renal disease, stage IV (HCC) [facility] 36 Prescription Request : Last medication check: 09/22/24 Last physical exam: 01/08/23 Next scheduled appointment: 12/24/24 Csa 09/22/24 Uds none Last date of refill on this medication 11/21/24 30 and no refill [facility] Office Visiton 12-09-2024 Follow-up visit [id number] Gurinder Hahn Ry 1975 M [facility] 12/09/2024 [id number]-DHFUDYGARRICK VELASQUEZ [facility] None Family History Adopted: Yes Problem Relation Age of Onset No Known Problems Mother High Blood Pressure Father Heart disease Father COPD Father Diabetes Father Family Status - Relation Status Age at Mother Father Level of Service:44517 RI OFFICE/OUTPATIENT NEW MODERATE MDM 45 MINUTES Reason for Visit and Comments: New Patient [542] - had sepsis and gangrene in testicle area, now has an open spot that urine is coming thru, urethral erosion, green discharge [facility] Progress Noteon 12-09-2024 Progress Note Ceci Quiroz 12/09/2024 at 5:57 PM UROLOGY INITIAL OFFICE VISIT PATIENT NAME: Gurinder Hahn DATE OF : 1975 TODAY'S DATE: 12/09/2024 Chief Complaint: Chief Complaint Patient presents with New Patient had sepsis and gangrene in testicle area, now has an open spot that urine is coming thru, urethral erosion, green discharge HPI Mr. Hahn is a 49 y.o. male who presents with Claire's gangrene. He was seen at [facility] in [place] and was transferred to 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 He had right orchiectomy was in the intensive care for an extended period of time and is just now finishing with wound care. It sounds like he had several debridements but no plastic surgery. He does have a previous history of bilateral orchidopexy for undescended testicles. He is now complaining about voiding through his urethra as well as a fistulous track in his suprapubic region. He is diabetic and does complain of erectile dysfunction Review of Systems Constitutional: Negative for unexpected weight change. HENT: Negative for ear pain and trouble swallowing. Eyes: Negative for pain and discharge. Respiratory: Negative for shortness of breath and wheezing. Cardiovascular: Negative for chest pain and palpitations. Gastrointestinal: Negative for anal bleeding and rectal pain. Endocrine: Negative for cold intolerance and heat intolerance. Genitourinary: See HPI Skin: Negative for rash. Neurological: Negative for tremors and weakness. Psychiatric/Behavioral: Negative for suicidal ideas. The patient is not hyperactive. Past Medical History: Past Medical History: Diagnosis Date Acute respiratory failure ([facility]) Acute vomiting 05/26/2021 Atrial fibrillation ([facility]) GERD (gastroesophageal reflux disease) Gout Hyperglycemia Hyperlipidemia Hypertension Necrotizing fasciitis ([facility]) 09/22/2024 Osteoarthritis Sepsis ([facility]) Sepsis, unspecified organism ([facility]) 06/30/2024 Type 2 diabetes mellitus without complication ([facility]/HCC) ([facility]) UTI symptoms 01/13/2021 Weight loss 07/17/2022 Past Surgical History: Past Surgical History: Procedure Laterality Date CYST REMOVAL sebacious cyst rmoved TESTICLE SURGERY TOE AMPUTATION Right 05/14/2020 Partial amputation 2nd toe TOE AMPUTATION Right 11/15/2020 right 3rd toe TOE SURGERY Left tip of second toe removed (done under local anesthesia per Dr. Arredondo) WISDOM TOOTH EXTRACTION Current Medications: Prior to Admission medications Medication Sig Start Date End Date Taking? Authorizing Provider acetaminophen (Tylenol) 500 MG tablet Take 1 tablet (500 mg) by mouth every 6 hours as needed for mild pain (1-3) or moderate pain (4-6). 10/27/24 Yes Phoebe Adam APRN - OLI Alcohol Swabs (B-D SINGLE USE SWABS REGULAR) pads use three times a day as directed 08/13/23 Yes MOIRA Peralta CNP B-D UF III MINI PEN NEEDLES 31G X 5 MM misc Inject 100 each under the skin daily. As directed 08/13/23 Yes MOIRA Peralta CNP Continuous Glucose Head Rigger (FreeStyle Yanni 3 [place]) device Use as directed 09/22/24 Yes MOIRA Peralta CNP Continuous Glucose Sensor (FreeStyle Yanni 3 Sensor) misc every 14 (fourteen) days. 11/10/24 Yes MOIRA Samuels CNP gabapentin (Neurontin) 300 MG capsule Take 1 capsule (300 mg) by mouth Nightly. 11/21/24 Yes MOIRA Peralta CNP glimepiride (Amaryl) 4 MG tablet Take 2 tablets (8 mg) by mouth daily (with breakfast). 10/24/24 Yes MOIRA Peralta CNP glucose blood (True Metrix Blood Glucose Test) test strip use 1 TEST STRIP to TEST BLOOD SUGAR twice a day 11/06/24 Yes Artie Jackson MD Lanalexisus SoloStar 100 UNIT/ML pen inject 16 units subcutaneously nightly 09/24/24 Yes MOIRA Peralta CNP Melatonin 3 MG tablet dispersible Take 3 mg by mouth Nightly as needed (sleep). 11/20/24 Yes MOIRA Samuels CNP metoprolol succinate XL (Toprol-XL) 100 MG 24 hr tablet Take 100 mg by mouth daily. 09/11/24 Yes Historical ProviderMD omeprazole (PriLOSEC) [address] capsule Take 1 capsule (40 mg) by mouth 2 times daily (before meals). Do not crush or chew. 12/08/24 Yes MOIRA Peralta CNP polyethylene glycol, PEG, 3350 (Miralax) 17 g packet Take 17 g by mouth daily. Patient taking differently: Take 17 g by mouth as needed. 07/30/23 Yes MOIRA Peralta CNP rosuvastatin (Crestor) 10 MG tablet Take 1 tablet (10 mg) by mouth daily. 09/24/24 Yes MOIRA Peralta CNP triamterene-hydrochlorot hiazide (Maxzide-25) 37.5-25 MG tablet Take 1 tablet by mouth daily. 08/28/22 Yes Historical Provider, MD [place] 5 MG tablet Take 1 tablet (5 mg) by mouth 2 times daily. Patient not taking: Reported on 12/09/2024 10/27/24 Phoebe Adam, [employer] omeprazole (PriLOSEC) [address] capsule take 1 capsule by mouth every morning and 1 every evening befo (more content not included)... [address] 12-08-2024 36 Rx sent. Follow up a s scheduled. [place] [id number] Prescription Request : Last medication check: 09/22/2024 Last physical exam: none Next scheduled appointment: 12/24/2024 Last date of refill on this medication: 04/02/[address] 11-25-2024 36 Can we get an appointment scheduled for his diabetes management and I can address with them at his appointment. [address] 11-24-2024 36 Pts so called in to r/s appt. He is now scheduled 12/09/[address] 11-21-2024 [address] 11-20-2024 36 Reviewed chart. Refi ll appropriate. RX sent. [place] [id number] Prescription Request : Last medication check: 09/22/24 Last physical exam: none Next scheduled appointment: none Last date of refill on this medication 10/29/24 30 and no refill [address] 11-06-2024 36 Refill not due for another couple of weeks. [place] [id number] Prescription Request : Last medication check: 09/22/24 Last physical exam: none Next scheduled appointment: 11/17/24 CSA on file (date): 09/22/24 Last urine drug screen: none Last date of refill on this medication 10/20/24 30 and no refill [place] [id number] Rx sent [place] [id number] Prescription Request : Last medication check: 09/22/24 Last physical exam: 2020 Next scheduled appointment: 11/17/24 Last date of refill on this medication 09/23/24 100 strips and [address] 10-29-2024 36 Refill not appropriate. Normal [facility] 36 Sent in 1 week ago. [address] 10-27-2024 36 Noted. Rx sent. Normal [facility] 36 I do not see where w e have ever prescribed this medication for him. Recommend getting this from the managing provider. [place] [id number] Rx sent. Follow up a s scheduled. [place] [id number] Prescription Request : Last medication check: 09/22/24 Last physical exam: none Next scheduled appointment: 11/17/24 Last date of refill on this medication: 09/22/24 [place] [id number] Prescription Request : Last medication check: 09/22/24 Last physical exam: none Next scheduled appointment: 11/17/24 Last date of refill on this medication: not found [place] [phone] Should not need a re fill of his device. [place] [id number] Prescription Request : Last medication check: 09/22/24 Last physical exam: 06/22/21 Next scheduled appointment: 11/17/24 Last date of refill on this medication 09/22/24 1 and no refill [address] 10-24-2024 [address] 10-21-2024 36 Patient confirmed Patient appointment on Sunday11/25/2024. [place] [id number] Preferred contact number: [phone] Reason for Visit: New Patient 10-21-[address] Velasquez cancelled due to transportation issues. Please call to reschedule accordingly Urgency of Appointment: New Patient Medications in need of refill: NA [address] 09-26-2024 36 Spoke to patient, he will see when his roommate can bring him in for the recheck and call back to schedule. [facility] 36 ----- Message from MOIRA Alcaraz CNP sent at 09/26/2024 6:48 AM EST ----- Urine protein is high. Follow up with nephrology as directed. [address] 09-24-2024 36 Sig adjusted for Jesus tus and refill sent for Rosuvastatin. Found previous CBC result and hemoglobin was 8.2 on 08/04/24 so it has dropped. Recommend repeating CBC in 1 week and having him complete a FIT test to assess for blood in the stool. If he starts to feel weak, dizzy, lightheaded, or sees signs of blood in urine or stool I recommend he be evaluated in the ED. Order placed for FIT test and repeat CBC. [facility] 36on 09-23-2024 36 Spoke to patient, no questions. Needs refill on Rosuvastatin, pended. Please update sig for Lantus, thanks! ----- Message from MOIRA Dai CNP sent at 09/23/2024 2:14 PM EST ----- Good cholesterol levels are low, but other levels are good. Continue current dose of Rosuvastatin. Blood sugar was 250. Kidney function remains poor, but stable. Encouraged follow up with nephrology as discussed. Potassium slightly elevated but stable. Liver enzymes normal. Hemoglobin A1c is high at 8.5%. Recommend increasing nightly Lantus to 16 units and dropping off/sending in home blood sugars for review in 1 week. Blood count shows low hemoglobin. Please obtain most recent CBC from hospitalization for review. PSA level is normal. Still waiting on urine protein and urinalysis and culture. Normal [facility] 37on 09-22-2024 37 Please obtain echocardiogram result from [place]. [facility] Office Visiton 09-22-2024 Follow-up visit [id number] Gurinder Hahn 1975 M Date Provider Department Center 09/22/2024 [id number] ADAM [facility] Family History Adopted: Yes Problem Relation Age of Onset No Known Problems Mother High Blood Pressure Father Heart disease Father COPD Father Diabetes Father Family Status - Relation Status Age at Mother Father Level of Service:81962 [place] OFFICE/OUTPATIENT ESTABLISHED MOD MDM 30 MIN Reason for Visit and Comments: Blood Work [150164] Health Maintenance [872] - Echo- had done in the hospital Flu- declines Hiv/Hep C screen- declines Crcs- declines PNA- declines Dm Dental- not done Hep A- declines Covid- not done Care Management [875] [facility] Progress Noteon 09-22-2024 Progress Note Patient verified by last name and . [facility] Progress Note Patient Gurinder Hahn 49 y.o. male, presents today with Chief Complaint Patient presents with Blood Work Health Maintenance Echo- had done in the hospital Flu- declines Hiv/Hep C screen- declines Crcs- declines PNA- declines Dm Dental- not done Hep A- declines Covid- not done Care Management . HPI- Gurinder Hahn presents today with his girlfriend for follow up on his diabetes and other chronic health conditions. Previous hemoglobin A1c was 7.6% on 07/14/24. Was in the long-term for about 4-5 months and has been home since 08/07/24. Is not receiving any home therapy services and is doing well without it. Has assistance with ADL's via family and housemates. Diabetes Mellitus Type II: Known diabetic complications: nephropathy, peripheral neuropathy, and cardiovascular disease- needs to follow back up with a kidney specialist since being discharged home. Neuropathy has not been as well controlled. Would like to start back on his 300 mg dose of his Gabapentin. Not following up with cardiology- taking Eliquis as prescribed and denies signs of bleeding. Cardiovascular risk factors: diabetes mellitus, dyslipidemia, hypertension, obesity (BMI >= 30 kg/m2), sedentary lifestyle, and smoking/ tobacco exposure Current diabetic medications include: Glimepiride and Lantus- 14 units nightly. Eye exam current (within one year): yes - 10/30/23 Dental exam current (within one year): No- reminded to schedule Weight trend: stable Current diet: in general, an unhealthy diet Current exercise: none Current monitoring regimen: home blood tests - daily Home blood sugar records: fasting range: 160's and postprandial range: low 200's - would like to get a continuous glucometer since he is on insulin Any episodes of hypoglycemia? No Is He on FLORINDA inhibitor or angiotensin II receptor huyen? No- no longer taking Lisinopril due to renal failure- blood pressure is stable today at 138/86. Taking Metoprolol as prescribed. Currently on statin therapy? Yes - Rosuvastatin. Will check cholesterol levels today. Last urine microalbumin was 596.4 mg/L on 01/08/23- will recheck today. Last foot exam was 01/08/23- will do today. Has a bed sore on his buttocks that is improving. Is actively following up with wound care center in [place] every 2 weeks and has been packing his wound at home. Had gangrene of his penis and is following up with wound and is in the process of getting set up with urology for ongoing management. Health Maintenance: Declines a flu vaccination. Declines screening for HIV and Hep C. States he had an echocardiogram while hospitalized- will request records. Declines a colonoscopy for colon cancer screening and all other forms of screening at this time. Declines to be vaccinated for pneumonia. Declines to be vaccinated for Hep A. Declines to be vaccinated for COVID-19. Tdap current: 08/17/18. Past Medical History: Diagnosis Date Acute respiratory failure (HCC) Acute vomiting 05/26/2021 Atrial fibrillation (HCC) GERD (gastroesophageal reflux disease) Gout Hyperglycemia Hyperlipidemia Hypertension Necrotizing fasciitis (HCC) 09/22/2024 Osteoarthritis Sepsis (HCC) Sepsis, unspecified organism (HCC) 06/30/2024 Type 2 diabetes mellitus without complication (CMS/HCC) (HCC) UTI symptoms 01/13/2021 Weight loss 07/17/2022 Past Surgical History: Procedure Laterality Date CYST REMOVAL sebacious cyst rmoved TESTICLE SURGERY TOE AMPUTATION Right 05/14/2020 Partial amputation 2nd toe TOE AMPUTATION Right 11/15/2020 right 3rd toe TOE SURGERY Left tip of second toe removed (done under local anesthesia per Dr. Arredondo) WISDOM TOOTH EXTRACTION Family History Adopted: Yes Problem Relation Name Age of Onset No Known Problems Mother High Blood Pressure Father Heart disease Father COPD Father Diabetes Father Social History Socioeconomic History Marital status: Spouse name: Not on file Number of children: Not on file Years of education: Not on file Highest education level: Not on file Occupational History Not on file Tobacco Use Smoking status: Every Day Current packs/day: 1.00 Average packs/day: 1 pack/day for 34.8 years (34.8 ttl pk-yrs) Types: Cigarettes Start date: 12/12/1989 Smokeless tobacco: Current Vaping Use Vaping status: Never Used Substance and Sexual Activity Alcohol use: Yes Comment: Occasional Drug use: No Sexual activity: Defer Other Topics Concern Not on file Social History Narrative Not on file Social Drivers of Health Financial Resource Strain: Low Risk (09/20/2024) Overall Financial Resource Strain (CARDIA) Difficulty of Paying Living Expenses: Not hard at all Food Insecurity: No Food Insecurity (09/20/2024) Hunger Vital Sign Worried About Running Out of Food in the Last Year: Never true Ran Out of Food in the Last Year: Never true Transportation Needs: No Trans (more content not included)... Normal [facility] 36on 09-11-2024 36 Reviewed chart. Refi ll appropriate. RX sent. Normal [facility] 36 Prescription Request : Last medication check: 04/05/23 Last physical exam: none Next scheduled appointment: 09/22/24 Last date of refill on this medication 08/11/24 30 and no refill Normal [facility] .Auto Diffon 06-30-2024 Basophil, Absolute 0.1 10 3/mcL Normal 0.0-0.3 [facility] ([place]) Comment on above: Performed By: #### G FR, CBC, ADIFF, ANEU, CMP, MG ####[address] [address] Basophils/100 WBC (Bld) 0.9 % Normal 0.0-2.5 [facility] ([place]) Comment on above: Performed By: #### G FR, CBC, ADIFF, ANEU, CMP, MG ####[address] [address] Eosinophil, Absolute 0.3 10 3/mcL Normal 0.0-0.7 [facility] ([place]) Comment on above: Performed By: #### G FR, CBC, ADIFF, ANEU, CMP, MG ####[address] [address] Eosinophils/100 WBC (Bld) 3.2 % Normal 0.0-6.0 [facility] ([place]) Comment on above: Performed By: #### G FR, CBC, ADIFF, ANEU, CMP, MG ####[address] [address] Lymphocyte, Absolute 1.9 10 3/mcL Normal 0.9-4.3 [facility] ([place]) Comment on above: Performed By: #### G FR, CBC, ADIFF, ANEU, CMP, MG ####[address] [address] Lymphocytes/100 WBC (Bld) 23.7 % Normal 20.0-40.0 [facility] ([place]) Comment on above: Performed By: #### G FR, CBC, ADIFF, ANEU, CMP, MG ####[address] [address] Monocyte, Absolute 0.6 10 3/mcL Normal 0.1-1.4 [facility] ([place]) Comment on above: Performed By: #### G FR, CBC, ADIFF, ANEU, CMP, MG ####[address] [address] Monocytes/100 WBC (Bld) 7.8 % Normal 2.0-13.0 [facility] ([place]) Comment on above: Performed By: #### G FR, CBC, ADIFF, ANEU, CMP, MG ####[address] [address] Neutrophils/100 WBC (Bld) 64.4 % Normal 50.0-75.0 [facility] ([place]) Comment on above: Performed By: #### G FR, CBC, ADIFF, ANEU, CMP, MG ####[address] [address] .GFRon 06-30-2024 GFR 45 ml/min/1.73sqm Normal [facility] ([place]) Comment on above: Result Comment: GFR Population mean for , Non- Americans Ages 20-29 = 116 mL/min/1.73 sq.m. Ages 30-39 = 107 mL/min/1.73 sq.m. Ages 40-49 = 99 mL/min/1.73 sq.m. Ages 50-59 = 93 mL/min/1.73 sq.m. Ages 60-69 = 85 mL/min/1.73 sq.m. Ages 70+ = 75 mL/min/1.73 sq.m.Chronic Kidney Disease: Less than 60 mL/min/1.73 square metersEnd Stage Renal Disease: Less than 15 mL/min/1.73 square meters Performed By: #### G FR, CBC, ADIFF, ANEU, CMP, MG ####[address] [address] GFR Non- 37 ml/min/1.73sqm Normal [facility] ([place]) Comment on above: Result Comment: GFR Population mean for , Non- Americans Ages 20-29 = 116 mL/min/1.73 sq.m. Ages 30-39 = 107 mL/min/1.73 sq.m. Ages 40-49 = 99 mL/min/1.73 sq.m. Ages 50-59 = 93 mL/min/1.73 sq.m. Ages 60-69 = 85 mL/min/1.73 sq.m. Ages 70+ = 75 mL/min/1.73 sq.m.Chronic Kidney Disease: Less than 60 mL/min/1.73 square metersEnd Stage Renal Disease: Less than 15 mL/min/1.73 square meters Performed By: #### G FR, CBC, ADIFF, ANEU, CMP, MG ####[address] [address] .NEUABSon 06-30-2024 Neutrophil, Absolute 5.2 10 3/mcL Normal 2.3-8.1 [facility] ([place]) Comment on above: Performed By: #### G FR, CBC, ADIFF, ANEU, CMP, MG ####[address] [address] .SMUSTon 06-30-2024 Smooth Muscle Ab Titer Pos 40 Normal [facility] ([place]) Comment on above: Result Comment: An A nti-smooth muscle antibody (ASMA) of 1:160 or greater isseen in approximately 80% of patients with HBSAG-neg ChronicActive Hepatitis (CAH). Low ASMA titers may be present inviral infections, malignancies and normal individuals. Performed By: #### G FR, [id number], DUANE, CMP, ANEU, ADIFF, CBC, PRO, SMUST, SMUSC, JOAQUIM, MG, HEPAC ####[place] [address] CBCon 06-30-2024 Erythrocyte distribution width (RBC) [Ratio] 20.5 % High 11.5-15.5 [facility] ([place]) Comment on above: Performed By: #### G FR, CBC, ADIFF, ANEU, CMP, MG ####[place] [address] Hematocrit (Bld) [Volume fraction] 27.0 % Low 40.0-52.0 [facility] ([place]) Comment on above: Performed By: #### G FR, CBC, ADIFF, ANEU, CMP, MG ####[place] [address] Hgb 8.7 G/dL Low 13.0-17.5 [facility] ([place]) Comment on above: Performed By: #### G FR, CBC, ADIFF, ANEU, CMP, MG ####[place] [address] MCH (RBC) [Entitic mass] 27.3 pg Normal 27.0-33.0 [facility] ([place]) Comment on above: Performed By: #### G FR, CBC, ADIFF, ANEU, CMP, MG ####[place] [address] MCHC 32.3 G/dL Normal 32.0-36.0 [facility] ([place]) Comment on above: Performed By: #### G FR, CBC, ADIFF, ANEU, CMP, MG ####[place] [address] MCV (RBC) [Entitic vol] 84.5 fL Normal 81.0-100.0 [facility] ([place]) Comment on above: Performed By: #### G FR, CBC, ADIFF, ANEU, CMP, MG ####[place] [address] Platelet 303 10 3/mcL Normal 150-450 [facility] ([place]) Comment on above: Performed By: #### G FR, CBC, ADIFF, ANEU, CMP, MG ####[place] [address] Platelet mean volume (Bld) [Entitic vol] 8.0 fL Normal 6.4-10.5 [facility] ([place]) Comment on above: Performed By: #### G FR, CBC, ADIFF, ANEU, CMP, MG ####[place] [address] RBC 3.19 10 6/mcL Low 4.50-6.00 [facility] ([place]) Comment on above: Performed By: #### G FR, CBC, ADIFF, ANEU, CMP, MG ####[address] [address] WBC 8.0 10 3/mcL Normal 4.5-10.8 [facility] ([place]) Comment on above: Performed By: #### G FR, CBC, ADIFF, ANEU, CMP, MG ####[address] [address] CMPon 06-30-2024 Albumin Level 1.6 G/dL Low 3.2-4.8 [facility] ([place]) Comment on above: Performed By: #### G FR, CBC, ADIFF, ANEU, CMP, MG ####[place] [address] Albumin/Globulin [Mass ratio] 0.3 {ratio} Low 0.9-1.6 [facility] ([place]) Comment on above: Performed By: #### G FR, CBC, ADIFF, ANEU, CMP, MG ####[address] [address] ALP [Catalytic activity/Vol] 1437 U/L High 38-126 [facility] ([place]) Comment on above: Performed By: #### G FR, CBC, ADIFF, ANEU, CMP, MG ####[address] [address] ALT [Catalytic activity/Vol] 129 U/L High 12-55 [facility] ([place]) Comment on above: Performed By: #### G FR, CBC, ADIFF, ANEU, CMP, MG ####[address] [address] AST [Catalytic activity/Vol] 101 U/L High 8-34 [facility] ([place]) Comment on above: Performed By: #### G FR, CBC, ADIFF, ANEU, CMP, MG ####[address] [address] Bili Total 0.40 mg/dL Normal 0.20-1.20 [facility] ([place]) Comment on above: Result Comment: Use of this assay is not recommended for patients undergoing treatment with eltrombopag due to the potential for falsely elevated results. Performed By: #### G FR, CBC, ADIFF, ANEU, CMP, MG ####[address] [address] BUN/Creatinine Ratio 16.0 ratio Normal 10.0-22.0 [facility] ([place]) Comment on above: Performed By: #### G FR, CBC, ADIFF, ANEU, CMP, MG ####[address] [address] Calcium [Mass/Vol] 8.2 mg/dL Low 8.7-10.4 [facility] ([place]) Comment on above: Performed By: #### G FR, CBC, ADIFF, ANEU, CMP, MG ####[address] [address] Chloride [Moles/Vol] 107 mmol/L Normal 98-110 [facility] ([place]) Comment on above: Performed By: #### G FR, CBC, ADIFF, ANEU, CMP, MG ####[place] [id number] CO2 [Moles/Vol] 24 mmol/L Normal 22-32 [facility] ([place]) Comment on above: Performed By: #### G FR, CBC, ADIFF, ANEU, CMP, MG ####[place] [id number] Creatinine [Mass/Vol] 1.94 mg/dL High 0.60-1.40 [facility] ([place]) Comment on above: Performed By: #### G FR, CBC, ADIFF, ANEU, CMP, MG ####[address] [address] Electrolyte Balance 4.0 mEq/L Normal 4.0-15.0 [facility] ([place]) Comment on above: Performed By: #### G FR, CBC, ADIFF, ANEU, CMP, MG ####[address] [address] Globulin 5.2 G/dL High 1.5-3.8 [facility] ([place]) Comment on above: Performed By: #### G FR, CBC, ADIFF, ANEU, CMP, MG ####[place] [id number] [address] [place] [address] Glucose [Mass/Vol] 183 mg/dL High 70-110 [facility] ([place]) Comment on above: Performed By: #### G FR, CBC, ADIFF, ANEU, CMP, MG ####[address] [address] Potassium [Moles/Vol] 5.2 mmol/L High 3.5-5.0 [facility] ([place]) Comment on above: Result Comment: Spec imen slightly hemolyzed. Performed By: #### G FR, CBC, ADIFF, ANEU, CMP, MG ####[address] [address] [address] Sodium [Moles/Vol] 135 mmol/L Low 136-145 [facility] ([place]) Comment on above: Performed By: #### G FR, CBC, ADIFF, ANEU, CMP, MG ####[address] [address] Total Protein 6.8 G/dL Normal 5.7-8.2 [facility] ([place]) Comment on above: Result Comment: No te - New Reference Range in effect 20 Performed By: #### G FR, CBC, ADIFF, ANEU, CMP, MG ####[address] [address] Urea nitrogen [Mass/Vol] 31.0 mg/dL High 8.0-22.0 [facility] ([place]) Comment on above: Performed By: #### G FR, CBC, ADIFF, ANEU, CMP, MG ####[address] [address] LABORATORYOrdered By: Jean-Pierre Parrish on 06-30-2024 Blood Glucose Testing Reason Routine (06/30/24 4:06 PM) [facility] Work Phone: Glucose [Mass/Vol] 185 mg/dL High 70 - 110 mg/dL [facility] Work Phone: LABORATORYOrdered By: Chandler kate on 06-30-2024 Glucose [Mass/Vol] 252 mg/dL High 70 - 110 mg/dL [facility] Work Phone: Glucose [Mass/Vol] 147 mg/dL High 70 - 110 mg/dL [facility] Work Phone: LABORATORYOrdered By: SYSTEM SYSTEM on 06-30-2024 Albumin BCP dye [Mass/Vol] 1.6 G/dL Low 3.2 - 4.8 G/dL ADM SS Albumin/Globulin [Mass ratio] 0.3 {ratio} Low 0.9 - 1.6 ratio ADM SS ALP [Catalytic activity/Vol] 1437 U/L High 38 - 126 U/L ADM SS ALT No additional P-5'-P [Catalytic activity/Vol] 129 U/L High 12 - 55 U/L ADM SS AST [Catalytic activity/Vol] 101 U/L High 8 - 34 U/L ADM SS Basophils (Bld) [#/Vol] 0.1 103/mcL Normal 0.0 - 0.3 10^3/mcL Workflow SS Basophils/100 WBC (Bld) 0.9 % Normal 0.0 - 2.5 % Workflow SS Bilirubin [Mass/Vol] 0.40 mg/dL Normal 0.20 - 1.20 mg/dL ADM SS Comment on above: Interpretive Data: U se of this assay is not recommended for patients undergoing treatment with eltrombopag due to the potential for falsely elevated results. Calcium [Mass/Vol] 8.2 mg/dL Low 8.7 - 10. 4 mg/dL ADM SS Chloride [Moles/Vol] 107 mmol/L Normal 98 - 11 0 mEq/L ADM SS CO2 [Moles/Vol] 24 mmol/L Normal 22 - 32 mEq/L ADM SS Creatinine [Mass/Vol] 1.94 mg/dL High 0.60 - 1.40 mg/dL ADM SS Electrolyte Balance 4.0 mEq/L Normal 4.0 - 15 .0 mEq/L ADM SS Eosinophils (Bld) [#/Vol] 0.3 103/mcL Normal 0.0 - 0.7 10^3/mcL Workflow SS Eosinophils/100 WBC (Bld) 3.2 % Normal 0.0 - 6.0 % Workflow SS Erythrocyte distribution width (RBC) [Ratio] 20.5 % High 11.5 - 15.5 % Workflow SS GFR/1.73 sq M.predicted among blacks MDRD (S/P/Bld) [Vol rate/Area] 45 ml/min/1.73sqm Invalid Interpretation Code Chemistry S Comment on above: Interpretive Data: GFR Population mean for , Non- Americans Ages 20-29 = 116 mL/min/1.73 sq.m. Ages 30-39 = 107 mL/min/1.73 sq.m. Ages 40-49 = 99 mL/min/1.73 sq.m. Ages 50-59 = 93 mL/min/1.73 sq.m. Ages 60-69 = 85 mL/min/1.73 sq.m. Ages 70+ = 75 mL/min/1.73 sq.m. Chronic Kidney Disease: Less than 60 mL/min/1.73 square meters End Stage Renal Disease: Less than 15 mL/min/1.73 square meters GFR/1.73 sq M.predicted among non-blacks MDRD (S/P/Bld) [Vol rate/Area] 37 ml/min/1.73sqm Invalid Interpretation Code Chemistry S Comment on above: Interpretive Data: GFR Population mean for , Non- Americans Ages 20-29 = 116 mL/min/1.73 sq.m. Ages 30-39 = 107 mL/min/1.73 sq.m. Ages 40-49 = 99 mL/min/1.73 sq.m. Ages 50-59 = 93 mL/min/1.73 sq.m. Ages 60-69 = 85 mL/min/1.73 sq.m. Ages 70+ = 75 mL/min/1.73 sq.m. Chronic Kidney Disease: Less than 60 mL/min/1.73 square meters End Stage Renal Disease: Less than 15 mL/min/1.73 square meters Globulin 5.2 G/dL High 1.5 - 3.8 G/dL ADM SS Glucose [Mass/Vol] 183 mg/dL High 70 - 110 mg/dL ADM SS Hematocrit (Bld) [Volume fraction] 27.0 % Low 40.0 - 52.0 % AH Workflow SS Hemoglobin (Bld) [Mass/Vol] 8.7 G/dL Low 13.0 - 17.5 G/dL AH Workflow SS Lymphocytes (Bld) [#/Vol] 1.9 103/mcL Normal 0.9 - 4.3 10^3/mcL AH Workflow SS Lymphocytes/100 WBC (Bld) 23.7 % Normal 20.0 - 40.0 % AH Workflow SS Magnesium [Mass/Vol] 1.7 mg/dL Normal 1.6 - 2 .4 mg/dL AH ADM SS MCH (RBC) [Entitic mass] 27.3 pg Normal 27.0 - 33.0 pg AH Workflow SS MCHC 32.3 G/dL Normal 32.0 - 36.0 G/dL AH Workflow SS MCV (RBC) [Entitic vol] 84.5 fL Normal 81.0 - 100.0 fL AH Workflow SS Monocytes (Bld) [#/Vol] 0.6 103/mcL Normal 0.1 - 1.4 10^3/mcL AH Workflow SS Monocytes/100 WBC (Bld) 7.8 % Normal 2.0 - 13.0 % AH Workflow SS Neutrophils (Bld) [#/Vol] 5.2 103/mcL Normal 2.3 - 8.1 10^3/mcL AH Workflow SS Neutrophils/100 WBC (Bld) 64.4 % Normal 50.0 - 75.0 % AH Workflow SS Platelet mean volume (Bld) [Entitic vol] 8.0 fL Normal 6.4 - 10.5 fL AH Workflow SS Platelets (Bld) [#/Vol] 303 103/mcL Normal 150 - 450 10^3/mcL AH Workflow SS Potassium [Moles/Vol] 5.2 mmol/L High 3.5 - 5.0 mEq/L ADM SS Comment on above: Result Comment: Spec imen slightly hemolyzed. Protein [Mass/Vol] 6.8 G/dL Normal 5.7 - 8.2 G/dL ADM SS Comment on above: Interpretive Data: * *Note - New Reference Range in effect 20 RBC (Bld) [#/Vol] 3.19 106/mcL Low 4.50 - 6.00 10^6/mcL AH Workflow SS Sodium [Moles/Vol] 135 mmol/L Low 136 - 145 mEq/L AH ADM SS Urea nitrogen [Mass/Vol] 31.0 mg/dL High 8.0 - 22.0 mg/dL AH ADM SS Urea nitrogen/Creatinine [Mass ratio] 16.0 ratio Normal 10.0 - 22.0 ratio AH ADM SS WBC (Bld) [#/Vol] 8.0 103/mcL Normal 4.5 - 10.8 10^3/mcL AH Workflow SS MGon 06-30-2024 Magnesium [Mass/Vol] 1.7 mg/dL Normal 1.6-2.4 [facility] ([place]) Comment on above: Performed By: #### G FR, CBC, ADIFF, ANEU, CMP, MG ####[address] [address] .Auto Diffon 06-29-2024 Basophil, Absolute 0.1 10 3/mcL Normal 0.0-0.3 [facility] ([place]) Comment on above: Performed By: #### A ARBEN, GFR, CMP, ADIFF, CBC ####[address] [address] Basophils/100 WBC (Bld) 1.0 % Normal 0.0-2.5 [facility] ([place]) Comment on above: Performed By: #### A ARBEN, GFR, CMP, ADIFF, CBC ####[address] [address] Eosinophil, Absolute 0.3 10 3/mcL Normal 0.0-0.7 [facility] ([place]) Comment on above: Performed By: #### A ARBEN, GFR, CMP, ADIFF, CBC ####[address] [address] Eosinophils/100 WBC (Bld) 3.3 % Normal 0.0-6.0 [facility] ([place]) Comment on above: Performed By: #### A ARBEN, GFR, CMP, ADIFF, CBC ####[address] [address] Lymphocyte, Absolute 1.9 10 3/mcL Normal 0.9-4.3 [facility] ([place]) Comment on above: Performed By: #### A ARBEN, GFR, CMP, ADIFF, CBC ####[address] [address] Lymphocytes/100 WBC (Bld) 23.6 % Normal 20.0-40.0 [facility] ([place]) Comment on above: Performed By: #### A ARBEN, GFR, CMP, ADIFF, CBC ####[address] [address] Monocyte, Absolute 0.7 10 3/mcL Normal 0.1-1.4 [facility] ([place]) Comment on above: Performed By: #### A ARBEN, GFR, CMP, ADIFF, CBC ####[address] [address] Monocytes/100 WBC (Bld) 8.1 % Normal 2.0-13.0 [facility] ([place]) Comment on above: Performed By: #### A ARBEN, GFR, CMP, ADIFF, CBC ####[address] [address] Neutrophils/100 WBC (Bld) 64.0 % Normal 50.0-75.0 [facility] ([place]) Comment on above: Performed By: #### A ARBEN, GFR, CMP, ADIFF, CBC ####[address] [address] .GFRon 06-29-2024 GFR 44 ml/min/1.73sqm Normal [facility] ([place]) Comment on above: Result Comment: GFR Population mean for , Non- Americans Ages 20-29 = 116 mL/min/1.73 sq.m. Ages 30-39 = 107 mL/min/1.73 sq.m. Ages 40-49 = 99 mL/min/1.73 sq.m. Ages 50-59 = 93 mL/min/1.73 sq.m. Ages 60-69 = 85 mL/min/1.73 sq.m. Ages 70+ = 75 mL/min/1.73 sq.m.Chronic Kidney Disease: Less than 60 mL/min/1.73 square metersEnd Stage Renal Disease: Less than 15 mL/min/1.73 square meters Performed By: #### A ARBEN, GFR, CMP, ADIFF, CBC ####[place] [address] GFR Non- 37 ml/min/1.73sqm Normal [facility] ([place]) Comment on above: Result Comment: GFR Population mean for , Non- Americans Ages 20-29 = 116 mL/min/1.73 sq.m. Ages 30-39 = 107 mL/min/1.73 sq.m. Ages 40-49 = 99 mL/min/1.73 sq.m. Ages 50-59 = 93 mL/min/1.73 sq.m. Ages 60-69 = 85 mL/min/1.73 sq.m. Ages 70+ = 75 mL/min/1.73 sq.m.Chronic Kidney Disease: Less than 60 mL/min/1.73 square metersEnd Stage Renal Disease: Less than 15 mL/min/1.73 square meters Performed By: #### A ARBEN, GFR, CMP, ADIFF, CBC ####[place] [address] .NEUABSon 06-29-2024 Neutrophil, Absolute 5.2 10 3/mcL Normal 2.3-8.1 [facility] ([place]) Comment on above: Performed By: #### A ARBEN, GFR, CMP, ADIFF, CBC ####[place] [address] CBCon 06-29-2024 Erythrocyte distribution width (RBC) [Ratio] 20.1 % High 11.5-15.5 [facility] ([place]) Comment on above: Performed By: #### A ARBEN, GFR, CMP, ADIFF, CBC ####[place] [address] Hematocrit (Bld) [Volume fraction] 26.5 % Low 40.0-52.0 [facility] ([place]) Comment on above: Performed By: #### A ARBEN, GFR, CMP, ADIFF, CBC ####[place] [address] Hgb 8.6 G/dL Low 13.0-17.5 [facility] ([place]) Comment on above: Performed By: #### A ARBEN, GFR, CMP, ADIFF, CBC ####[place] [address] MCH (RBC) [Entitic mass] 27.2 pg Normal 27.0-33.0 [facility] ([place]) Comment on above: Performed By: #### A ARBEN, GFR, CMP, ADIFF, CBC ####[place] [address] MCHC 32.3 G/dL Normal 32.0-36.0 [facility] ([place]) Comment on above: Performed By: #### A ARBEN, GFR, CMP, ADIFF, CBC ####[place] [address] MCV (RBC) [Entitic vol] 84.1 fL Normal 81.0-100.0 [facility] ([place]) Comment on above: Performed By: #### A ARBEN, GFR, CMP, ADIFF, CBC ####[place] [address] Platelet 304 10 3/mcL Normal 150-450 [facility] ([place]) Comment on above: Performed By: #### A ARBEN, GFR, CMP, ADIFF, CBC ####[place] [address] Platelet mean volume (Bld) [Entitic vol] 8.0 fL Normal 6.4-10.5 [facility] ([place]) Comment on above: Performed By: #### A ARBEN, GFR, CMP, ADIFF, CBC ####[place] [address] RBC 3.15 10 6/mcL Low 4.50-6.00 [facility] ([place]) Comment on above: Performed By: #### A ARBEN, GFR, CMP, ADIFF, CBC ####[place] [address] WBC 8.2 10 3/mcL Normal 4.5-10.8 [facility] ([place]) Comment on above: Performed By: #### A ARBEN, GFR, CMP, ADIFF, CBC ####[place] [address] CMPon 06-29-2024 Albumin Level 1.5 G/dL Low 3.2-4.8 [facility] ([place]) Comment on above: Performed By: #### A ARBEN, GFR, CMP, ADIFF, CBC ####[address] [address] Albumin/Globulin [Mass ratio] 0.3 {ratio} Low 0.9-1.6 [facility] ([place]) Comment on above: Performed By: #### A ARBEN, GFR, CMP, ADIFF, CBC ####[address] [address] ALP [Catalytic activity/Vol] 1446 U/L High 38-126 [facility] ([place]) Comment on above: Performed By: #### A ARBEN, GFR, CMP, ADIFF, CBC ####[address] [address] ALT [Catalytic activity/Vol] 138 U/L High 12-55 [facility] ([place]) Comment on above: Performed By: #### A ARBEN, GFR, CMP, ADIFF, CBC ####[place] [address] AST [Catalytic activity/Vol] 97 U/L High 8-34 [facility] ([place]) Comment on above: Performed By: #### A ARBEN, GFR, CMP, ADIFF, CBC ####[address] [address] Bili Total 0.40 mg/dL Normal 0.20-1.20 [facility] ([place]) Comment on above: Result Comment: Use of this assay is not recommended for patients undergoing treatment with eltrombopag due to the potential for falsely elevated results. Performed By: #### A ARBEN, GFR, CMP, ADIFF, CBC ####[place] [id number] BUN/Creatinine Ratio 14.7 ratio Normal 10.0-22.0 [facility] ([place]) Comment on above: Performed By: #### A ARBEN, GFR, CMP, ADIFF, CBC ####[address] [address] Calcium [Mass/Vol] 8.2 mg/dL Low 8.7-10.4 [facility] ([place]) Comment on above: Performed By: #### A ARBEN, GFR, CMP, ADIFF, CBC ####[address] [address] Chloride [Moles/Vol] 108 mmol/L Normal 98-110 [facility] ([place]) Comment on above: Performed By: #### A ARBEN, GFR, CMP, ADIFF, CBC ####[address] [address] CO2 [Moles/Vol] 23 mmol/L Normal 22-32 [facility] ([place]) Comment on above: Performed By: #### A ARBEN, GFR, CMP, ADIFF, CBC ####[address] [address] Creatinine [Mass/Vol] 1.97 mg/dL High 0.60-1.40 [facility] ([place]) Comment on above: Performed By: #### A ARBEN, GFR, CMP, ADIFF, CBC ####[address] [address] Electrolyte Balance 6.0 mEq/L Normal 4.0-15.0 [facility] ([place]) Comment on above: Performed By: #### A ARBEN, GFR, CMP, ADIFF, CBC ####[address] [address] Globulin 5.1 G/dL High 1.5-3.8 [facility] ([place]) Comment on above: Performed By: #### A ARBEN, GFR, CMP, ADIFF, CBC ####[address] [address] Glucose [Mass/Vol] 174 mg/dL High 70-110 [facility] ([place]) Comment on above: Performed By: #### A ARBEN, GFR, CMP, ADIFF, CBC ####[address] [address] Potassium [Moles/Vol] 5.0 mmol/L Normal 3.5-5.0 [facility] ([place]) Comment on above: Performed By: #### A ARBEN, GFR, CMP, ADIFF, CBC ####[place] [id number] [place] [address] Sodium [Moles/Vol] 137 mmol/L Normal 136-145 [facility] ([place]) Comment on above: Performed By: #### A ARBEN, GFR, CMP, ADIFF, CBC ####[address] [address] Total Protein 6.6 G/dL Normal 5.7-8.2 [facility] ([place]) Comment on above: Result Comment: No te - New Reference Range in effect 20 Performed By: #### A ARBEN, GFR, CMP, ADIFF, CBC ####[address] [address] Urea nitrogen [Mass/Vol] 29.0 mg/dL High 8.0-22.0 [facility] ([place]) Comment on above: Performed By: #### A ARBEN, GFR, CMP, ADIFF, CBC ####[address] [address] LABORATORYOrdered By: SYSTEM SYSTEM on 06-29-2024 Albumin BCP dye [Mass/Vol] 1.5 G/dL Low 3.2 - 4.8 G/dL ADM SS Albumin/Globulin [Mass ratio] 0.3 {ratio} Low 0.9 - 1.6 ratio AH ADM SS ALP [Catalytic activity/Vol] 1446 U/L High 38 - 126 U/L ADM SS ALT No additional P-5'-P [Catalytic activity/Vol] 138 U/L High 12 - 55 U/L ADM SS AST [Catalytic activity/Vol] 97 U/L High 8 - 34 U/L AH ADM SS Basophils (Bld) [#/Vol] 0.1 103/mcL Normal 0.0 - 0.3 10^3/mcL AH Workflow SS Basophils/100 WBC (Bld) 1.0 % Normal 0.0 - 2.5 % Workflow SS Bilirubin [Mass/Vol] 0.40 mg/dL Normal 0.20 - 1.20 mg/dL ADM SS Comment on above: Interpretive Data: U se of this assay is not recommended for patients undergoing treatment with eltrombopag due to the potential for falsely elevated results. Calcium [Mass/Vol] 8.2 mg/dL Low 8.7 - 10. 4 mg/dL ADM SS Chloride [Moles/Vol] 108 mmol/L Normal 98 - 11 0 mEq/L ADM SS CO2 [Moles/Vol] 23 mmol/L Normal 22 - 32 mEq/L ADM SS Creatinine [Mass/Vol] 1.97 mg/dL High 0.60 - 1.40 mg/dL AH ADM SS Electrolyte Balance 6.0 mEq/L Normal 4.0 - 15 .0 mEq/L ADM SS Eosinophils (Bld) [#/Vol] 0.3 103/mcL Normal 0.0 - 0.7 10^3/mcL Workflow SS Eosinophils/100 WBC (Bld) 3.3 % Normal 0.0 - 6.0 % Workflow SS Erythrocyte distribution width (RBC) [Ratio] 20.1 % High 11.5 - 15.5 % Workflow SS GFR/1.73 sq M.predicted among blacks MDRD (S/P/Bld) [Vol rate/Area] 44 ml/min/1.73sqm Invalid Interpretation Code Traveler | VIP Chemistry S Comment on above: Interpretive Data: GFR Population mean for , Non- Americans Ages 20-29 = 116 mL/min/1.73 sq.m. Ages 30-39 = 107 mL/min/1.73 sq.m. Ages 40-49 = 99 mL/min/1.73 sq.m. Ages 50-59 = 93 mL/min/1.73 sq.m. Ages 60-69 = 85 mL/min/1.73 sq.m. Ages 70+ = 75 mL/min/1.73 sq.m. Chronic Kidney Disease: Less than 60 mL/min/1.73 square meters End Stage Renal Disease: Less than 15 mL/min/1.73 square meters GFR/1.73 sq M.predicted among non-blacks MDRD (S/P/Bld) [Vol rate/Area] 37 ml/min/1.73sqm Invalid Interpretation Code Traveler | VIP Chemistry S Comment on above: Interpretive Data: GFR Population mean for , Non- Americans Ages 20-29 = 116 mL/min/1.73 sq.m. Ages 30-39 = 107 mL/min/1.73 sq.m. Ages 40-49 = 99 mL/min/1.73 sq.m. Ages 50-59 = 93 mL/min/1.73 sq.m. Ages 60-69 = 85 mL/min/1.73 sq.m. Ages 70+ = 75 mL/min/1.73 sq.m. Chronic Kidney Disease: Less than 60 mL/min/1.73 square meters End Stage Renal Disease: Less than 15 mL/min/1.73 square meters Globulin 5.1 G/dL High 1.5 - 3.8 G/dL AH ADM SS Glucose [Mass/Vol] 174 mg/dL High 70 - 110 mg/dL AH ADM SS Hematocrit (Bld) [Volume fraction] 26.5 % Low 40.0 - 52.0 % AH Workflow SS Hemoglobin (Bld) [Mass/Vol] 8.6 G/dL Low 13.0 - 17.5 G/dL AH Workflow SS Lymphocytes (Bld) [#/Vol] 1.9 103/mcL Normal 0.9 - 4.3 10^3/mcL AH Workflow SS Lymphocytes/100 WBC (Bld) 23.6 % Normal 20.0 - 40.0 % AH Workflow SS MCH (RBC) [Entitic mass] 27.2 pg Normal 27.0 - 33.0 pg AH Workflow SS MCHC 32.3 G/dL Normal 32.0 - 36.0 G/dL AH Workflow SS MCV (RBC) [Entitic vol] 84.1 fL Normal 81.0 - 100.0 fL AH Workflow SS Monocytes (Bld) [#/Vol] 0.7 103/mcL Normal 0.1 - 1.4 10^3/mcL AH Workflow SS Monocytes/100 WBC (Bld) 8.1 % Normal 2.0 - 13.0 % AH Workflow SS Neutrophils (Bld) [#/Vol] 5.2 103/mcL Normal 2.3 - 8.1 10^3/mcL AH Workflow SS Neutrophils/100 WBC (Bld) 64.0 % Normal 50.0 - 75.0 % AH Workflow SS Platelet mean volume (Bld) [Entitic vol] 8.0 fL Normal 6.4 - 10.5 fL AH Workflow SS Platelets (Bld) [#/Vol] 304 103/mcL Normal 150 - 450 10^3/mcL AH Workflow SS Potassium [Moles/Vol] 5.0 mmol/L Normal 3.5 - 5.0 mEq/L AH ADM SS Protein [Mass/Vol] 6.6 G/dL Normal 5.7 - 8.2 G/dL ADM SS Comment on above: Interpretive Data: * *Note - New Reference Range in effect 20 RBC (Bld) [#/Vol] 3.15 106/mcL Low 4.50 - 6.00 10^6/mcL AH Workflow SS Sodium [Moles/Vol] 137 mmol/L Normal 136 - 145 mEq/L AH ADM SS Urea nitrogen [Mass/Vol] 29.0 mg/dL High 8.0 - 22.0 mg/dL AH ADM SS Urea nitrogen/Creatinine [Mass ratio] 14.7 ratio Normal 10.0 - 22.0 ratio AH ADM SS WBC (Bld) [#/Vol] 8.2 103/mcL Normal 4.5 - 10.8 10^3/mcL Workflow SS .Auto Diffon 06-28-2024 Basophil, Absolute 0.1 10 3/mcL Normal 0.0-0.3 [facility] ([place]) Comment on above: Performed By: #### C BC, CMP, ADIFF, ANEU, GFR, MG ####[address] [address] Basophils/100 WBC (Bld) 0.8 % Normal 0.0-2.5 [facility] ([place]) Comment on above: Performed By: #### C BC, CMP, ADIFF, ANEU, GFR, MG ####[place] [id number] [place] [address] Eosinophil, Absolute 0.3 10 3/mcL Normal 0.0-0.7 [facility] ([place]) Comment on above: Performed By: #### C BC, CMP, ADIFF, ANEU, GFR, MG ####[place] [id number] [address] [place] [address] Eosinophils/100 WBC (Bld) 3.6 % Normal 0.0-6.0 [facility] ([place]) Comment on above: Performed By: #### C BC, CMP, ADIFF, ANEU, GFR, MG ####[address] [address] Lymphocyte, Absolute 1.8 10 3/mcL Normal 0.9-4.3 [facility] ([place]) Comment on above: Performed By: #### C BC, CMP, ADIFF, ANEU, GFR, MG ####[address] [address] Lymphocytes/100 WBC (Bld) 22.5 % Normal 20.0-40.0 [facility] ([place]) Comment on above: Performed By: #### C BC, CMP, ADIFF, ANEU, GFR, MG ####[address] [address] Monocyte, Absolute 0.7 10 3/mcL Normal 0.1-1.4 [facility] ([place]) Comment on above: Performed By: #### C BC, CMP, ADIFF, ANEU, GFR, MG ####[address] [address] Monocytes/100 WBC (Bld) 8.8 % Normal 2.0-13.0 [facility] ([place]) Comment on above: Performed By: #### C BC, CMP, ADIFF, ANEU, GFR, MG ####[address] [address] Neutrophils/100 WBC (Bld) 64.3 % Normal 50.0-75.0 [facility] ([place]) Comment on above: Performed By: #### C BC, CMP, ADIFF, ANEU, GFR, MG ####[address] [address] .GFRon 06-28-2024 GFR 44 ml/min/1.73sqm Normal [facility] ([place]) Comment on above: Result Comment: GFR Population mean for , Non- Americans Ages 20-29 = 116 mL/min/1.73 sq.m. Ages 30-39 = 107 mL/min/1.73 sq.m. Ages 40-49 = 99 mL/min/1.73 sq.m. Ages 50-59 = 93 mL/min/1.73 sq.m. Ages 60-69 = 85 mL/min/1.73 sq.m. Ages 70+ = 75 mL/min/1.73 sq.m.Chronic Kidney Disease: Less than 60 mL/min/1.73 square metersEnd Stage Renal Disease: Less than 15 mL/min/1.73 square meters Performed By: #### C BC, CMP, ADIFF, ANEU, GFR, MG ####[address] [address] GFR Non- 37 ml/min/1.73sqm Normal [facility] ([place]) Comment on above: Result Comment: GFR Population mean for , Non- Americans Ages 20-29 = 116 mL/min/1.73 sq.m. Ages 30-39 = 107 mL/min/1.73 sq.m. Ages 40-49 = 99 mL/min/1.73 sq.m. Ages 50-59 = 93 mL/min/1.73 sq.m. Ages 60-69 = 85 mL/min/1.73 sq.m. Ages 70+ = 75 mL/min/1.73 sq.m.Chronic Kidney Disease: Less than 60 mL/min/1.73 square metersEnd Stage Renal Disease: Less than 15 mL/min/1.73 square meters Performed By: #### C BC, CMP, ADIFF, ANEU, GFR, MG ####[place] [address] .NEUABSon 06-28-2024 Neutrophil, Absolute 5.1 10 3/mcL Normal 2.3-8.1 [facility] ([place]) Comment on above: Performed By: #### C BC, CMP, ADIFF, ANEU, GFR, MG ####[place] [address] CBCon 06-28-2024 Erythrocyte distribution width (RBC) [Ratio] 20.2 % High 11.5-15.5 [facility] ([place]) Comment on above: Performed By: #### C BC, CMP, ADIFF, ANEU, GFR, MG ####[place] [address] Hematocrit (Bld) [Volume fraction] 26.4 % Low 40.0-52.0 [facility] ([place]) Comment on above: Performed By: #### C BC, CMP, ADIFF, ANEU, GFR, MG ####[place] [address] Hgb 8.8 G/dL Low 13.0-17.5 [facility] ([place]) Comment on above: Performed By: #### C BC, CMP, ADIFF, ANEU, GFR, MG ####[place] [address] MCH (RBC) [Entitic mass] 28.5 pg Normal 27.0-33.0 [facility] ([place]) Comment on above: Performed By: #### C BC, CMP, ADIFF, ANEU, GFR, MG ####[place] [address] MCHC 33.4 G/dL Normal 32.0-36.0 [facility] ([place]) Comment on above: Performed By: #### C BC, CMP, ADIFF, ANEU, GFR, MG ####[place] [address] MCV (RBC) [Entitic vol] 85.1 fL Normal 81.0-100.0 [facility] ([place]) Comment on above: Performed By: #### C BC, CMP, ADIFF, ANEU, GFR, MG ####[place] [address] Platelet 285 10 3/mcL Normal 150-450 [facility] ([place]) Comment on above: Performed By: #### C BC, CMP, ADIFF, ANEU, GFR, MG ####[place] [address] Platelet mean volume (Bld) [Entitic vol] 8.0 fL Normal 6.4-10.5 [facility] ([place]) Comment on above: Performed By: #### C BC, CMP, ADIFF, ANEU, GFR, MG ####[place] [address] RBC 3.10 10 6/mcL Low 4.50-6.00 [facility] ([place]) Comment on above: Performed By: #### C BC, CMP, ADIFF, ANEU, GFR, MG ####[place] [address] WBC 8.0 10 3/mcL Normal 4.5-10.8 [facility] ([place]) Comment on above: Performed By: #### C BC, CMP, ADIFF, ANEU, GFR, MG ####[address] [address] CMPon 06-28-2024 Albumin Level 1.5 G/dL Low 3.2-4.8 [facility] ([place]) Comment on above: Performed By: #### C BC, CMP, ADIFF, ANEU, GFR, MG ####[address] [address] Albumin/Globulin [Mass ratio] 0.3 {ratio} Low 0.9-1.6 [facility] ([place]) Comment on above: Performed By: #### C BC, CMP, ADIFF, ANEU, GFR, MG ####[address] [address] ALP [Catalytic activity/Vol] 1526 U/L High 38-126 [facility] ([place]) Comment on above: Performed By: #### C BC, CMP, ADIFF, ANEU, GFR, MG ####[address] [address] ALT [Catalytic activity/Vol] 169 U/L High 12-55 [facility] ([place]) Comment on above: Performed By: #### C BC, CMP, ADIFF, ANEU, GFR, MG ####[address] [address] AST [Catalytic activity/Vol] 132 U/L High 8-34 [facility] ([place]) Comment on above: Performed By: #### C BC, CMP, ADIFF, ANEU, GFR, MG ####[place] [address] Bili Total 0.40 mg/dL Normal 0.20-1.20 [facility] ([place]) Comment on above: Result Comment: Use of this assay is not recommended for patients undergoing treatment with eltrombopag due to the potential for falsely elevated results. Performed By: #### C BC, CMP, ADIFF, ANEU, GFR, MG ####[place] [address] BUN/Creatinine Ratio 13.7 ratio Normal 10.0-22.0 [facility] ([place]) Comment on above: Performed By: #### C BC, CMP, ADIFF, ANEU, GFR, MG ####[address] [address] Calcium [Mass/Vol] 7.9 mg/dL Low 8.7-10.4 [facility] ([place]) Comment on above: Performed By: #### C BC, CMP, ADIFF, ANEU, GFR, MG ####[address] [address] Chloride [Moles/Vol] 110 mmol/L Normal 98-110 [facility] ([place]) Comment on above: Performed By: #### C BC, CMP, ADIFF, ANEU, GFR, MG ####[place] [id number] CO2 [Moles/Vol] 23 mmol/L Normal 22-32 [facility] ([place]) Comment on above: Performed By: #### C BC, CMP, ADIFF, ANEU, GFR, MG ####[address] [address] Creatinine [Mass/Vol] 1.97 mg/dL High 0.60-1.40 [facility] ([place]) Comment on above: Performed By: #### C BC, CMP, ADIFF, ANEU, GFR, MG ####[address] [address] Electrolyte Balance 2.0 mEq/L Low 4.0-15.0 [facility] ([place]) Comment on above: Performed By: #### C BC, CMP, ADIFF, ANEU, GFR, MG ####[address] [address] Globulin 5.0 G/dL High 1.5-3.8 [facility] ([place]) Comment on above: Performed By: #### C BC, CMP, ADIFF, ANEU, GFR, MG ####[address] [address] Glucose [Mass/Vol] 167 mg/dL High 70-110 [facility] ([place]) Comment on above: Performed By: #### C BC, CMP, ADIFF, ANEU, GFR, MG ####[place] [id number] [address] [place] [address] Potassium [Moles/Vol] 4.8 mmol/L Normal 3.5-5.0 [facility] ([place]) Comment on above: Performed By: #### C BC, CMP, ADIFF, ANEU, GFR, MG ####[address] [address] Sodium [Moles/Vol] 135 mmol/L Low 136-145 [facility] ([place]) Comment on above: Performed By: #### C BC, CMP, ADIFF, ANEU, GFR, MG ####[address] [address] Total Protein 6.5 G/dL Normal 5.7-8.2 [facility] ([place]) Comment on above: Result Comment: No te - New Reference Range in effect 20 Performed By: #### C BC, CMP, ADIFF, ANEU, GFR, MG ####[address] [address] Urea nitrogen [Mass/Vol] 27.0 mg/dL High 8.0-22.0 [facility] ([place]) Comment on above: Performed By: #### C BC, CMP, ADIFF, ANEU, GFR, MG ####[address] [address] LABORATORYOrdered By: SYSTEM SYSTEM on 06-28-2024 Albumin BCP dye [Mass/Vol] 1.5 G/dL Low 3.2 - 4.8 G/dL ADM SS Albumin/Globulin [Mass ratio] 0.3 {ratio} Low 0.9 - 1.6 ratio AH ADM SS ALP [Catalytic activity/Vol] 1526 U/L High 38 - 126 U/L ADM SS ALT No additional P-5'-P [Catalytic activity/Vol] 169 U/L High 12 - 55 U/L ADM SS AST [Catalytic activity/Vol] 132 U/L High 8 - 34 U/L ADM SS Basophils (Bld) [#/Vol] 0.1 103/mcL Normal 0.0 - 0.3 10^3/mcL AH Workflow SS Basophils/100 WBC (Bld) 0.8 % Normal 0.0 - 2.5 % AH Workflow SS Bilirubin [Mass/Vol] 0.40 mg/dL Normal 0.20 - 1.20 mg/dL ADM SS Comment on above: Interpretive Data: U se of this assay is not recommended for patients undergoing treatment with eltrombopag due to the potential for falsely elevated results. Calcium [Mass/Vol] 7.9 mg/dL Low 8.7 - 10. 4 mg/dL ADM SS Chloride [Moles/Vol] 110 mmol/L Normal 98 - 11 0 mEq/L ADM SS CO2 [Moles/Vol] 23 mmol/L Normal 22 - 32 mEq/L ADM SS Creatinine [Mass/Vol] 1.97 mg/dL High 0.60 - 1.40 mg/dL ADM SS Electrolyte Balance 2.0 mEq/L Low 4.0 - 15 .0 mEq/L ADM SS Eosinophils (Bld) [#/Vol] 0.3 103/mcL Normal 0.0 - 0.7 10^3/mcL Workflow SS Eosinophils/100 WBC (Bld) 3.6 % Normal 0.0 - 6.0 % Workflow SS Erythrocyte distribution width (RBC) [Ratio] 20.2 % High 11.5 - 15.5 % Workflow SS GFR/1.73 sq M.predicted among blacks MDRD (S/P/Bld) [Vol rate/Area] 44 ml/min/1.73sqm Invalid Interpretation Code Chemistry S Comment on above: Interpretive Data: GFR Population mean for , Non- Americans Ages 20-29 = 116 mL/min/1.73 sq.m. Ages 30-39 = 107 mL/min/1.73 sq.m. Ages 40-49 = 99 mL/min/1.73 sq.m. Ages 50-59 = 93 mL/min/1.73 sq.m. Ages 60-69 = 85 mL/min/1.73 sq.m. Ages 70+ = 75 mL/min/1.73 sq.m. Chronic Kidney Disease: Less than 60 mL/min/1.73 square meters End Stage Renal Disease: Less than 15 mL/min/1.73 square meters GFR/1.73 sq M.predicted among non-blacks MDRD (S/P/Bld) [Vol rate/Area] 37 ml/min/1.73sqm Invalid Interpretation Code Chemistry S Comment on above: Interpretive Data: GFR Population mean for , Non- Americans Ages 20-29 = 116 mL/min/1.73 sq.m. Ages 30-39 = 107 mL/min/1.73 sq.m. Ages 40-49 = 99 mL/min/1.73 sq.m. Ages 50-59 = 93 mL/min/1.73 sq.m. Ages 60-69 = 85 mL/min/1.73 sq.m. Ages 70+ = 75 mL/min/1.73 sq.m. Chronic Kidney Disease: Less than 60 mL/min/1.73 square meters End Stage Renal Disease: Less than 15 mL/min/1.73 square meters Globulin 5.0 G/dL High 1.5 - 3.8 G/dL ADM SS Glucose [Mass/Vol] 167 mg/dL High 70 - 110 mg/dL ADM SS Hematocrit (Bld) [Volume fraction] 26.4 % Low 40.0 - 52.0 % AH Workflow SS Hemoglobin (Bld) [Mass/Vol] 8.8 G/dL Low 13.0 - 17.5 G/dL AH Workflow SS Lymphocytes (Bld) [#/Vol] 1.8 103/mcL Normal 0.9 - 4.3 10^3/mcL AH Workflow SS Lymphocytes/100 WBC (Bld) 22.5 % Normal 20.0 - 40.0 % AH Workflow SS Magnesium [Mass/Vol] 1.6 mg/dL Normal 1.6 - 2 .4 mg/dL ADM SS MCH (RBC) [Entitic mass] 28.5 pg Normal 27.0 - 33.0 pg AH Workflow SS MCHC 33.4 G/dL Normal 32.0 - 36.0 G/dL AH Workflow SS MCV (RBC) [Entitic vol] 85.1 fL Normal 81.0 - 100.0 fL AH Workflow SS Monocytes (Bld) [#/Vol] 0.7 103/mcL Normal 0.1 - 1.4 10^3/mcL AH Workflow SS Monocytes/100 WBC (Bld) 8.8 % Normal 2.0 - 13.0 % AH Workflow SS Neutrophils (Bld) [#/Vol] 5.1 103/mcL Normal 2.3 - 8.1 10^3/mcL AH Workflow SS Neutrophils/100 WBC (Bld) 64.3 % Normal 50.0 - 75.0 % AH Workflow SS Platelet mean volume (Bld) [Entitic vol] 8.0 fL Normal 6.4 - 10.5 fL AH Workflow SS Platelets (Bld) [#/Vol] 285 103/mcL Normal 150 - 450 10^3/mcL AH Workflow SS Potassium [Moles/Vol] 4.8 mmol/L Normal 3.5 - 5.0 mEq/L AH ADM SS Protein [Mass/Vol] 6.5 G/dL Normal 5.7 - 8.2 G/dL AH ADM SS Comment on above: Interpretive Data: * *Note - New Reference Range in effect 20 RBC (Bld) [#/Vol] 3.10 106/mcL Low 4.50 - 6.00 10^6/mcL AH Workflow SS Sodium [Moles/Vol] 135 mmol/L Low 136 - 145 mEq/L AH ADM SS Urea nitrogen [Mass/Vol] 27.0 mg/dL High 8.0 - 22.0 mg/dL AH ADM SS Urea nitrogen/Creatinine [Mass ratio] 13.7 ratio Normal 10.0 - 22.0 ratio AH ADM SS WBC (Bld) [#/Vol] 8.0 103/mcL Normal 4.5 - 10.8 10^3/mcL AH Workflow SS MGon 06-28-2024 Magnesium [Mass/Vol] 1.6 mg/dL Normal 1.6-2.4 [facility] ([place]) Comment on above: Performed By: #### C BC, CMP, ADIFF, ANEU, GFR, MG ####[address] [address] .Auto Diffon 06-27-2024 Basophil, Absolute 0.1 10 3/mcL Normal 0.0-0.3 [facility] ([place]) Comment on above: Performed By: #### A ARBEN, ADIFF, CBC, CMP, MG, GFR ####[address] [address] Basophils/100 WBC (Bld) 1.1 % Normal 0.0-2.5 [facility] ([place]) Comment on above: Performed By: #### A ARBEN, ADIFF, CBC, CMP, MG, GFR ####[address] [address] Eosinophil, Absolute 0.3 10 3/mcL Normal 0.0-0.7 [facility] ([place]) Comment on above: Performed By: #### A ARBEN, ADIFF, CBC, CMP, MG, GFR ####[address] [address] Eosinophils/100 WBC (Bld) 3.8 % Normal 0.0-6.0 [facility] ([place]) Comment on above: Performed By: #### A ARBEN, ADIFF, CBC, CMP, MG, GFR ####[address] [address] Lymphocyte, Absolute 2.0 10 3/mcL Normal 0.9-4.3 [facility] ([place]) Comment on above: Performed By: #### A ARBEN, ADIFF, CBC, CMP, MG, GFR ####[address] [address] Lymphocytes/100 WBC (Bld) 27.9 % Normal 20.0-40.0 [facility] ([place]) Comment on above: Performed By: #### A ARBEN, ADIFF, CBC, CMP, MG, GFR ####[address] [address] Monocyte, Absolute 0.7 10 3/mcL Normal 0.1-1.4 [facility] ([place]) Comment on above: Performed By: #### A ARBEN, ADIFF, CBC, CMP, MG, GFR ####[address] [address] Monocytes/100 WBC (Bld) 9.5 % Normal 2.0-13.0 [facility] ([place]) Comment on above: Performed By: #### A ARBEN, ADIFF, CBC, CMP, MG, GFR ####[address] [address] Neutrophils/100 WBC (Bld) 57.7 % Normal 50.0-75.0 [facility] ([place]) Comment on above: Performed By: #### A ARBEN, ADIFF, CBC, CMP, MG, GFR ####[address] [address] .GFRon 06-27-2024 GFR 49 ml/min/1.73sqm Normal [facility] ([place]) Comment on above: Result Comment: GFR Population mean for , Non- Americans Ages 20-29 = 116 mL/min/1.73 sq.m. Ages 30-39 = 107 mL/min/1.73 sq.m. Ages 40-49 = 99 mL/min/1.73 sq.m. Ages 50-59 = 93 mL/min/1.73 sq.m. Ages 60-69 = 85 mL/min/1.73 sq.m. Ages 70+ = 75 mL/min/1.73 sq.m.Chronic Kidney Disease: Less than 60 mL/min/1.73 square metersEnd Stage Renal Disease: Less than 15 mL/min/1.73 square meters Performed By: #### A ARBEN, ADIFF, CBC, CMP, MG, GFR ####[place] [address] GFR Non- 40 ml/min/1.73sqm Normal [facility] ([place]) Comment on above: Result Comment: GFR Population mean for , Non- Americans Ages 20-29 = 116 mL/min/1.73 sq.m. Ages 30-39 = 107 mL/min/1.73 sq.m. Ages 40-49 = 99 mL/min/1.73 sq.m. Ages 50-59 = 93 mL/min/1.73 sq.m. Ages 60-69 = 85 mL/min/1.73 sq.m. Ages 70+ = 75 mL/min/1.73 sq.m.Chronic Kidney Disease: Less than 60 mL/min/1.73 square metersEnd Stage Renal Disease: Less than 15 mL/min/1.73 square meters Performed By: #### A ARBEN, ADIFF, CBC, CMP, MG, GFR ####[address] [address] .NEUABSon 06-27-2024 Neutrophil, Absolute 4.1 10 3/mcL Normal 2.3-8.1 [facility] ([place]) Comment on above: Performed By: #### A ARBEN, ADIFF, CBC, CMP, MG, GFR ####[place] [address] ALKISOon 06-27-2024 ALP [Catalytic activity/Vol] 2012 U/L High 44-121 [facility] ([place]) Comment on above: Result Comment: Resu lts confirmed ondilution. Performed By: #### G FR, [id number], DUANE, CMP, ANEU, ADIFF, CBC, PRO, SMUST, SMUSC, JOAQUIM, MG, HEPAC ####[place] [address] ALP Bone Frac 32 % Normal 12-68 [facility] ([place]) Comment on above: Performed By: #### G FR, [id number], DUANE, CMP, ANEU, ADIFF, CBC, PRO, SMUST, SMUSC, JOAQUIM, MG, HEPAC ####[place] [address] ALP Intest Frac 0 % Normal 0-18 [facility] ([place]) Comment on above: Result Comment: Perf ormed At: [facility] [address] [id number] Vincent PhD Ph:[phone] Performed By: #### G FR, [id number], DUANE, CMP, ANEU, ADIFF, CBC, PRO, SMUST, SMUSC, JOAQUIM, MG, HEPAC ####[place] [address] ALP Liver Frac 68 % Normal 13-88 [facility] ([place]) Comment on above: Performed By: #### G FR, [id number], DUANE, CMP, ANEU, ADIFF, CBC, PRO, SMUST, SMUSC, JOAQUIM, MG, HEPAC ####[place] [address] ANAon 06-27-2024 Nuclear Ab IF (S) [Titer] 40 {titer} Normal Neg 40 [facility] ([place]) Comment on above: Result Comment: DUANE Screen and Titer methodology is an immunofluorescent technique utilizing Hep2 Substrate. Performed By: #### G FR, [id number], DUANE, CMP, ANEU, ADIFF, CBC, PRO, SMUST, SMUSC, JOAQUIM, MG, HEPAC ####[place] [address] CBCon 06-27-2024 Erythrocyte distribution width (RBC) [Ratio] 20.3 % High 11.5-15.5 [facility] ([place]) Comment on above: Performed By: #### A ARBEN, ADIFF, CBC, CMP, MG, GFR ####[place] [address] Hematocrit (Bld) [Volume fraction] 26.7 % Low 40.0-52.0 [facility] ([place]) Comment on above: Performed By: #### A ARBEN, ADIFF, CBC, CMP, MG, GFR ####[place] [address] Hgb 8.5 G/dL Low 13.0-17.5 [facility] ([place]) Comment on above: Performed By: #### A ARBEN, ADIFF, CBC, CMP, MG, GFR ####[place] [address] MCH (RBC) [Entitic mass] 26.8 pg Low 27.0-33.0 [facility] ([place]) Comment on above: Performed By: #### A ARBEN, ADIFF, CBC, CMP, MG, GFR ####[place] [address] MCHC 31.7 G/dL Low 32.0-36.0 [facility] ([place]) Comment on above: Performed By: #### A ARBEN, ADIFF, CBC, CMP, MG, GFR ####[place] [address] MCV (RBC) [Entitic vol] 84.5 fL Normal 81.0-100.0 [facility] ([place]) Comment on above: Performed By: #### A ARBEN, ADIFF, CBC, CMP, MG, GFR ####[place] [address] Platelet 308 10 3/mcL Normal 150-450 [facility] ([place]) Comment on above: Performed By: #### A ARBEN, ADIFF, CBC, CMP, MG, GFR ####[place] [address] Platelet mean volume (Bld) [Entitic vol] 7.8 fL Normal 6.4-10.5 [facility] ([place]) Comment on above: Performed By: #### A ARBEN, ADIFF, CBC, CMP, MG, GFR ####[place] [id number] RBC 3.16 10 6/mcL Low 4.50-6.00 [facility] ([place]) Comment on above: Performed By: #### A ARBEN, ADIFF, CBC, CMP, MG, GFR ####[place] [address] WBC 7.1 10 3/mcL Normal 4.5-10.8 [facility] ([place]) Comment on above: Performed By: #### A ARBEN, ADIFF, CBC, CMP, MG, GFR ####[place] [address] CMPon 06-27-2024 ALP [Catalytic activity/Vol] 1616 U/L High 38-126 [facility] ([place]) Comment on above: Performed By: #### A ARBEN, ADIFF, CBC, CMP, MG, GFR ####[place] [address] Albumin Level 1.4 G/dL Low 3.2-4.8 [facility] ([place]) Comment on above: Performed By: #### A ARBEN, ADIFF, CBC, CMP, MG, GFR ####[place] [address] Albumin/Globulin [Mass ratio] 0.3 {ratio} Low 0.9-1.6 [facility] ([place]) Comment on above: Performed By: #### A ARBEN, ADIFF, CBC, CMP, MG, GFR ####[place] [address] ALT [Catalytic activity/Vol] 212 U/L High 12-55 [facility] ([place]) Comment on above: Performed By: #### A ARBEN, ADIFF, CBC, CMP, MG, GFR ####[address] [address] AST [Catalytic activity/Vol] 218 U/L High 8-34 [facility] ([place]) Comment on above: Performed By: #### A ARBEN, ADIFF, CBC, CMP, MG, GFR ####[address] [address] Bili Total 0.30 mg/dL Normal 0.20-1.20 [facility] ([place]) Comment on above: Result Comment: Use of this assay is not recommended for patients undergoing treatment with eltrombopag due to the potential for falsely elevated results. Performed By: #### A ARBEN, ADIFF, CBC, CMP, MG, GFR ####[place] [address] BUN/Creatinine Ratio 14.3 ratio Normal 10.0-22.0 [facility] ([place]) Comment on above: Performed By: #### A ARBEN, ADIFF, CBC, CMP, MG, GFR ####[address] [address] Calcium [Mass/Vol] 7.7 mg/dL Low 8.7-10.4 [facility] ([place]) Comment on above: Performed By: #### A ARBEN, ADIFF, CBC, CMP, MG, GFR ####[address] [address] Chloride [Moles/Vol] 109 mmol/L Normal 98-110 [facility] ([place]) Comment on above: Performed By: #### A ARBEN, ADIFF, CBC, CMP, MG, GFR ####[address] [address] CO2 [Moles/Vol] 21 mmol/L Low 22-32 [facility] ([place]) Comment on above: Performed By: #### A ARBEN, ADIFF, CBC, CMP, MG, GFR ####[address] [address] Creatinine [Mass/Vol] 1.82 mg/dL High 0.60-1.40 [facility] ([place]) Comment on above: Performed By: #### A ARBEN, ADIFF, CBC, CMP, MG, GFR ####[address] [address] Electrolyte Balance 6.0 mEq/L Normal 4.0-15.0 [facility] ([place]) Comment on above: Performed By: #### A ARBEN, ADIFF, CBC, CMP, MG, GFR ####[address] [address] Globulin 5.0 G/dL High 1.5-3.8 [facility] ([place]) Comment on above: Performed By: #### A ARBEN, ADIFF, CBC, CMP, MG, GFR ####[address] [address] Glucose [Mass/Vol] 217 mg/dL High 70-110 [facility] ([place]) Comment on above: Performed By: #### A ARBEN, ADIFF, CBC, CMP, MG, GFR ####[address] [address] Potassium [Moles/Vol] 4.9 mmol/L Normal 3.5-5.0 [facility] ([place]) Comment on above: Performed By: #### A ARBEN, ADIFF, CBC, CMP, MG, GFR ####[address] [address] Sodium [Moles/Vol] 136 mmol/L Normal 136-145 [facility] ([place]) Comment on above: Performed By: #### A ARBEN, ADIFF, CBC, CMP, MG, GFR ####[place] [address] Total Protein 6.4 G/dL Normal 5.7-8.2 [facility] ([place]) Comment on above: Result Comment: No te - New Reference Range in effect 20 Performed By: #### A ARBEN, ADIFF, CBC, CMP, MG, GFR ####[address] [address] Urea nitrogen [Mass/Vol] 26.0 mg/dL High 8.0-22.0 [facility] ([place]) Comment on above: Performed By: #### A ARBEN, ADIFF, CBC, CMP, MG, GFR ####[address] [address] LABORATORYOrdered By: SYSTEM SYSTEM on 06-27-2024 Magnesium [Mass/Vol] 1.7 mg/dL Normal 1.6 - 2 .4 mg/dL AH ADM SS MGon 06-27-2024 Magnesium [Mass/Vol] 1.7 mg/dL Normal 1.6-2.4 [facility] ([place]) Comment on above: Performed By: #### A ARBEN, ADIFF, CBC, CMP, MG, GFR ####[address] [address] MITOon 06-27-2024 Mitochondrial Ab Neg 20 Normal Neg 20 [facility] ([place]) Comment on above: Result Comment: Joaquim chondrial Ab Screen and Titer methodology is an immunofluorescent technique utilizing MSK Substrate. Performed By: #### [place] FR, [id number], DUANE, CMP, ANEU, ADIFF, CBC, PRO, SMUST, SMUSC, JOAQUIM, MG, HEPAC ####[place] [address] SMUSCon 06-27-2024 Smooth Muscle Ab See Titer Normal Neg 20 [facility] ([place]) Comment on above: Result Comment: Smoo th Muscle Ab Screen and Titer methodology is an immunofluorescent technique utilizing MSK Substrate. Performed By: #### [place] FR, [id number], DUANE, CMP, ANEU, ADIFF, CBC, PRO, SMUST, SMUSC, JOAQUIM, MG, HEPAC ####[address] [address] .Auto Diffon 06-26-2024 Basophil, Absolute 0.1 10 3/mcL Normal 0.0-0.3 [facility] ([place]) Comment on above: Performed By: #### G FR, [id number], DUANE, CMP, ANEU, ADIFF, CBC, PRO, SMUST, SMUSC, JOAQUIM, MG, HEPAC ####[address] [address] Basophils/100 WBC (Bld) 1.2 % Normal 0.0-2.5 [facility] ([place]) Comment on above: Performed By: #### Elizabeth FR, [id number], DUANE, CMP, ANEU, ADIFF, CBC, PRO, SMUST, SMUSC, JOAQUIM, MG, HEPAC ####[address] [address] Eosinophil, Absolute 0.3 10 3/mcL Normal 0.0-0.7 [facility] ([place]) Comment on above: Performed By: #### [place] FR, [id number], DUANE, CMP, ANEU, ADIFF, CBC, PRO, SMUST, SMUSC, JOAQUIM, MG, HEPAC ####[address] [address] Eosinophils/100 WBC (Bld) 4.4 % Normal 0.0-6.0 [facility] ([place]) Comment on above: Performed By: #### Elizabeth SOTO, [id number], DUANE, CMP, ANEU, ADIFF, CBC, PRO, SMUST, SMUSC, JOAQUIM, MG, HEPAC ####[address] [address] Lymphocyte, Absolute 1.9 10 3/mcL Normal 0.9-4.3 [facility] ([place]) Comment on above: Performed By: #### Elizabeth SOTO, [id number], DUANE, CMP, ANEU, ADIFF, CBC, PRO, SMUST, SMUSC, JOAQUIM, MG, HEPAC ####[address] [address] Lymphocytes/100 WBC (Bld) 23.8 % Normal 20.0-40.0 [facility] ([place]) Comment on above: Performed By: #### [place] FR, 760539, DUANE, CMP, ANEU, ADIFF, CBC, PRO, SMUST, SMUSC, JOAQUIM, MG, HEPAC ####[address] [address] Monocyte, Absolute 0.7 10 3/mcL Normal 0.1-1.4 [facility] ([place]) Comment on above: Performed By: #### Elizabeth SOTO, [id number], DUANE, CMP, ANEU, ADIFF, CBC, PRO, SMUST, SMUSC, JOAQUIM, MG, HEPAC ####[place] [address] Monocytes/100 WBC (Bld) 9.5 % Normal 2.0-13.0 [facility] ([place]) Comment on above: Performed By: #### G FR, [id number], DUANE, CMP, ANEU, ADIFF, CBC, PRO, SMUST, SMUSC, JOAQUIM, MG, HEPAC ####[address] [address] Neutrophils/100 WBC (Bld) 61.1 % Normal 50.0-75.0 [facility] ([place]) Comment on above: Performed By: #### G FR, [id number], DUANE, CMP, ANEU, ADIFF, CBC, PRO, SMUST, SMUSC, JOAQUIM, MG, HEPAC ####[address] [address] .GFRon 06-26-2024 GFR 46 ml/min/1.73sqm Normal [facility] ([place]) Comment on above: Result Comment: GFR Population mean for , Non- Americans Ages 20-29 = 116 mL/min/1.73 sq.m. Ages 30-39 = 107 mL/min/1.73 sq.m. Ages 40-49 = 99 mL/min/1.73 sq.m. Ages 50-59 = 93 mL/min/1.73 sq.m. Ages 60-69 = 85 mL/min/1.73 sq.m. Ages 70+ = 75 mL/min/1.73 sq.m.Chronic Kidney Disease: Less than 60 mL/min/1.73 square metersEnd Stage Renal Disease: Less than 15 mL/min/1.73 square meters Performed By: #### G FR, [id number], DUANE, CMP, ANEU, ADIFF, CBC, PRO, SMUST, SMUSC, JOAQUIM, MG, HEPAC ####[address] [address] GFR Non- 38 ml/min/1.73sqm Normal [facility] ([place]) Comment on above: Result Comment: GFR Population mean for , Non- Americans Ages 20-29 = 116 mL/min/1.73 sq.m. Ages 30-39 = 107 mL/min/1.73 sq.m. Ages 40-49 = 99 mL/min/1.73 sq.m. Ages 50-59 = 93 mL/min/1.73 sq.m. Ages 60-69 = 85 mL/min/1.73 sq.m. Ages 70+ = 75 mL/min/1.73 sq.m.Chronic Kidney Disease: Less than 60 mL/min/1.73 square metersEnd Stage Renal Disease: Less than 15 mL/min/1.73 square meters Performed By: #### G , [id number], DUANE, CMP, ANEU, ADIFF, CBC, PRO, SMUST, SMUSC, JOAQUIM, MG, HEPAC ####[place] [address] .NEUABSon 06-26-2024 Neutrophil, Absolute 4.8 10 3/mcL Normal 2.3-8.1 [facility] ([place]) Comment on above: Performed By: #### Elizabeth SOTO, [id number], DUANE, CMP, ANEU, ADIFF, CBC, PRO, SMUST, SMUSC, JOAQUIM, MG, HEPAC ####[place] [address] CBCon 06-26-2024 Erythrocyte distribution width (RBC) [Ratio] 19.8 % High 11.5-15.5 [facility] ([place]) Comment on above: Performed By: #### G , [id number], DUANE, CMP, ANEU, ADIFF, CBC, PRO, SMUST, SMUSC, JOAQUIM, MG, HEPAC ####[place] [address] Hematocrit (Bld) [Volume fraction] 26.1 % Low 40.0-52.0 [facility] ([place]) Comment on above: Performed By: #### Elizabeth SOTO, [id number], DUANE, CMP, ANEU, ADIFF, CBC, PRO, SMUST, SMUSC, JOAQUIM, MG, HEPAC ####[place] [address] Hgb 8.4 G/dL Low 13.0-17.5 [facility] ([place]) Comment on above: Performed By: #### Elizabeth FR, 475394, DUANE, CMP, ANEU, ADIFF, CBC, PRO, SMUST, SMUSC, JOAQUIM, MG, HEPAC ####[place] [address] MCH (RBC) [Entitic mass] 26.9 pg Low 27.0-33.0 [facility] ([place]) Comment on above: Performed By: #### G FR, [id number], DUANE, CMP, ANEU, ADIFF, CBC, PRO, SMUST, SMUSC, JOAQUIM, MG, HEPAC ####[place] [address] MCHC 32.3 G/dL Normal 32.0-36.0 [facility] ([place]) Comment on above: Performed By: #### G FR, [id number], DUANE, CMP, ANEU, ADIFF, CBC, PRO, SMUST, SMUSC, JOAQUIM, MG, HEPAC ####[place] [address] MCV (RBC) [Entitic vol] 83.1 fL Normal 81.0-100.0 [facility] ([place]) Comment on above: Performed By: #### G , [id number], DUANE, CMP, ANEU, ADIFF, CBC, PRO, SMUST, SMUSC, JOAQUIM, MG, HEPAC ####[place] [address] Platelet 349 10 3/mcL Normal 150-450 [facility] ([place]) Comment on above: Performed By: #### Elizabeth FR, 856143, DUANE, CMP, ANEU, ADIFF, CBC, PRO, SMUST, SMUSC, JOAQUIM, MG, HEPAC ####[place] [address] Platelet mean volume (Bld) [Entitic vol] 7.5 fL Normal 6.4-10.5 [facility] ([place]) Comment on above: Performed By: #### G FR, [id number], DUANE, CMP, ANEU, ADIFF, CBC, PRO, SMUST, SMUSC, JOAQUIM, MG, HEPAC ####[place] [address] RBC 3.14 10 6/mcL Low 4.50-6.00 [facility] ([place]) Comment on above: Performed By: #### Elizabeth SOTO, [id number], DUANE, CMP, ANEU, ADIFF, CBC, PRO, SMUST, SMUSC, JOAQUIM, MG, HEPAC ####[address] [address] WBC 7.8 10 3/mcL Normal 4.5-10.8 [facility] ([place]) Comment on above: Performed By: #### Elizabeth SOTO, [id number], DUANE, CMP, ANEU, ADIFF, CBC, PRO, SMUST, SMUSC, JOAQUIM, MG, HEPAC ####[address] [address] CMPon 06-26-2024 Albumin Level 1.4 G/dL Low 3.2-4.8 [facility] ([place]) Comment on above: Performed By: #### Elizabeth SOTO, [id number], DUANE, CMP, ANEU, ADIFF, CBC, PRO, SMUST, SMUSC, JOAQUIM, MG, HEPAC ####[address] [address] Albumin/Globulin [Mass ratio] 0.3 {ratio} Low 0.9-1.6 [facility] ([place]) Comment on above: Performed By: #### Elizabeth SOTO, [id number], DUANE, CMP, ANEU, ADIFF, CBC, PRO, SMUST, SMUSC, JOAQUIM, MG, HEPAC ####[address] [address] ALP [Catalytic activity/Vol] 1921 U/L High 38-126 [facility] ([place]) Comment on above: Performed By: #### Elizabeth OSTO, [id number], DUANE, CMP, ANEU, ADIFF, CBC, PRO, SMUST, SMUSC, JOAQUIM, MG, HEPAC ####[address] [address] ALT [Catalytic activity/Vol] 294 U/L High 12-55 [facility] ([place]) Comment on above: Performed By: #### Elizabeth SOTO, [id number], DUANE, CMP, ANEU, ADIFF, CBC, PRO, SMUST, SMUSC, JOAQUIM, MG, HEPAC ####[place] [address] AST [Catalytic activity/Vol] 432 U/L High 8-34 [facility] ([place]) Comment on above: Performed By: #### Elizabeth SOTO, [id number], DUANE, CMP, ANEU, ADIFF, CBC, PRO, SMUST, SMUSC, JOAQUIM, MG, HEPAC ####[address] [address] Bili Total 0.40 mg/dL Normal 0.20-1.20 [facility] ([place]) Comment on above: Result Comment: Use of this assay is not recommended for patients undergoing treatment with eltrombopag due to the potential for falsely elevated results. Performed By: #### Elizabeth SOTO, [id number], DUANE, CMP, ANEU, ADIFF, CBC, PRO, SMUST, SMUSC, JOAQUIM, MG, HEPAC ####[place] [address] BUN/Creatinine Ratio 13.5 ratio Normal 10.0-22.0 [facility] ([place]) Comment on above: Performed By: #### Elizabeth SOTO, [id number], DUANE, CMP, ANEU, ADIFF, CBC, PRO, SMUST, SMUSC, JOAQUIM, MG, HEPAC ####[place] [address] Calcium [Mass/Vol] 8.4 mg/dL Low 8.7-10.4 [facility] ([place]) Comment on above: Performed By: #### Elizabeth SOTO, [id number], DUANE, CMP, ANEU, ADIFF, CBC, PRO, SMUST, SMUSC, JOAQUIM, MG, HEPAC ####[address] [address] Chloride [Moles/Vol] 110 mmol/L Normal 98-110 [facility] ([place]) Comment on above: Performed By: #### Elizabeth SOTO, [id number], DUANE, CMP, ANEU, ADIFF, CBC, PRO, SMUST, SMUSC, JOAQUIM, MG, HEPAC ####[address] [address] CO2 [Moles/Vol] 24 mmol/L Normal 22-32 [facility] ([place]) Comment on above: Performed By: #### G , [id number], DUANE, CMP, ANEU, ADIFF, CBC, PRO, SMUST, SMUSC, JOAQUIM, MG, HEPAC ####[address] [address] Creatinine [Mass/Vol] 1.92 mg/dL High 0.60-1.40 [facility] [facility] ([place]) Comment on above: Performed By: #### G , [id number], DUANE, CMP, ANEU, ADIFF, CBC, PRO, SMUST, SMUSC, JOAQUIM, MG, HEPAC ####[address] [address] Electrolyte Balance 1.0 mEq/L Low 4.0-15.0 [facility] ([place]) Comment on above: Performed By: #### G , [id number], DUANE, CMP, ANEU, ADIFF, CBC, PRO, SMUST, SMUSC, JOAQUIM, MG, HEPAC ####[address] [address] Globulin 5.3 G/dL High 1.5-3.8 [facility] ([place]) Comment on above: Performed By: #### Elizabeth SOTO, [id number], DUANE, CMP, ANEU, ADIFF, CBC, PRO, SMUST, SMUSC, JOAQUIM, MG, HEPAC ####[address] [address] Glucose [Mass/Vol] 227 mg/dL High 70-110 [facility] ([place]) Comment on above: Performed By: #### Elizabeth SOTO, [id number], DUANE, CMP, ANEU, ADIFF, CBC, PRO, SMUST, SMUSC, JOAQUIM, MG, HEPAC ####[address] [address] Potassium [Moles/Vol] 5.3 mmol/L High 3.5-5.0 [facility] ([place]) Comment on above: Performed By: #### Elizabeth SOTO, [id number], DUANE, CMP, ANEU, ADIFF, CBC, PRO, SMUST, SMUSC, JOAQUIM, MG, HEPAC ####[address] [address] Sodium [Moles/Vol] 135 mmol/L Low 136-145 [facility] ([place]) Comment on above: Performed By: #### G , [id number], DUANE, CMP, ANEU, ADIFF, CBC, PRO, SMUST, SMUSC, JOAQUIM, MG, HEPAC ####[place] [address] Total Protein 6.7 G/dL Normal 5.7-8.2 [facility] ([place]) Comment on above: Result Comment: No te - New Reference Range in effect 20 Performed By: #### G , [id number], DUANE, CMP, ANEU, ADIFF, CBC, PRO, SMUST, SMUSC, JOAQUIM, MG, HEPAC ####[place] [address] Urea nitrogen [Mass/Vol] 26.0 mg/dL High 8.0-22.0 [facility] ([place]) Comment on above: Performed By: #### Elizabeth SOTO, [id number], DUANE, CMP, ANEU, ADIFF, CBC, PRO, SMUST, SMUSC, JOAQUIM, MG, HEPAC ####[place] [address] HEPACon 06-26-2024 Hep A IgM Ab Non-Reactive Normal Non-Reacti [facility] ([place]) Comment on above: Performed By: #### Elizabeth SOTO, [id number], DUANE, CMP, ANEU, ADIFF, CBC, PRO, SMUST, SMUSC, JOAQUIM, MG, HEPAC ####[place] [address] Hep A IgM Ab Int Normal [facility] ([place]) Comment on above: Result Comment: No s erological evidence of a current Hepatitis A infection.See Interp Performed By: #### G , [id number], DUANE, CMP, ANEU, ADIFF, CBC, PRO, SMUST, SMUSC, JOAQUIM, MG, HEPAC ####[place] [address] Hep B Core IgM Ab Non-Reactive Normal Non-Reacti [facility] ([place]) Comment on above: Performed By: #### G , 378361, DUANE, CMP, ANEU, ADIFF, CBC, PRO, SMUST, SMUSC, JOAQUIM, MG, HEPAC ####[place] [address] Hep B Core IgM Ab Int Normal [facility] ([place]) Comment on above: Result Comment: Samp les with a value < 0.80 Index are considered nonreactive (negative) for IgM antibodies to hepatitis B core antigen.See Interp Performed By: #### G FR, 475598, DUANE, CMP, ANEU, ADIFF, CBC, PRO, SMUST, SMUSC, JOAQUIM, MG, HEPAC ####[place] [address] Hep B Surf Ag Non-[facility] ([place] Comment on above: Performed By: #### G FR, 984702, DUANE, CMP, ANEU, ADIFF, CBC, PRO, SMUST, SMUSC, JOAQUIM, MG, HEPAC ####[place] [address] Hep C Ab Non-Reactive [place] [facility] ([place] Comment on above: Performed By: #### G FR, [id number], DUANE, CMP, ANEU, ADIFF, CBC, PRO, SMUST, SMUSC, JOAQUIM, MG, HEPAC ####[place] [address] Hep C Ab Int [facility] ([place]) Comment on above: Result Comment: Nonr eactive: Samples with a value < 0.80 are considered nonreactive (negative) for antibodies to HCV.A negative test result does not exclude the possibility of exposure to or infection with HCV. HCV antibodies may be undetectable in some stages of the infection and in some clinical conditions.See Interp Performed By: #### G FR, [id number], DUANE, CMP, ANEU, ADIFF, CBC, PRO, SMUST, SMUSC, JOAQUIM, MG, HEPAC ####[place] [address] LABORATORYOrdered By: Louisa Mckenna on 06-26-2024 Blood Glucose Testing Reason Routine (06/26/24 9:03 PM) [facility] Work Phone: LABORATORYOrdered By: Kasenna P CONTRIBUTOR_SYSTEM on 06-26-2024 ALP [Catalytic activity/Vol] 2012 U/L High 44-121 [facility] Comment on above: Result Comment: Resu lts confirmed on dilution. ALP Bone Frac (LC) 32 % Invalid Interpretation Code 12-68 [facility] ALP Intest Frac (LC) 0 % Invalid Interpretation Code 0-18 [facility] Comment on above: Result Comment: Perf ormed At: [facility] [place] [id number] [place], [place] [id number] Farrah Mclaughlin PhD Ph:[phone] ALP Liver Frac (LC) 68 % Invalid Interpretation Code 13-88 [facility] LABORATORYOrdered By: LIAT IBARRA on 06-26-2024 Fasting (LC) Y Yes (06/26/24 8:05 AM) Normal [facility] Work Phone: LABORATORYOrdered By: Sunitha Ruano on 06-26-2024 HAV IgM IA Ql Non-Reactive (06/26/24 8:05 AM) Normal Non-Reacti ve ADM SS HAV IgM IA Ql No serological evide nce of a current Hepatitis A infection. Invalid Interpretation Code Chemistry S HBV core IgM IA Ql Non-Reactive (06/26/24 8:05 AM) Normal Non-Reacti ve AH ADM SS HBV core IgM IA Ql Samples with a value < 0.80 Index are considered nonreactive (negative) for IgM antibodies to hepatitis B core antigen. Invalid Interpretation Code Chemistry S HBV surface Ag IA Ql Non-Reactive (06/26/24 8:05 AM) Normal Non-Reacti ve AH ADM SS HCV Ab IA Ql Non-Reactive (06/26/24 8:05 AM) Normal Non-Reacti ve AH ADM SS HCV Ab IA Ql Nonreactive: Samples with a value < 0.80 are considered nonreactive (negative) for antibodies to HCV.A negative test result does not exclude the possibility of exposure to or infection with HCV. HCV antibodies may be undetectable in some stages of the infection and in some clinical conditions. Invalid Interpretation Code Chemistry S LABORATORYOrdered By: Cherelle Giron on 06-26-2024 Mitochondria Ab IF Ql (S) Neg 20 18 (06/26/24 8:05 AM) Normal Neg 20 [facility] Comment on above: Interpretive Data: M itochondrial Ab Screen and Titer methodology is an immunofluorescent technique utilizing MSK Substrate. Nuclear Ab IF Ql (S) Neg 40 3 (06/26/24 8:05 AM) Normal Neg 40 [facility] Comment on above: Interpretive Data: A NA Screen and Titer methodology is an immunofluorescent technique utilizing Hep2 Substrate. Smooth muscle Ab IF (S) [Titer] Pos 40 20 (06/26/24 8:05 AM) Normal [facility] SS Comment on above: Interpretive Data: A n Anti-smooth muscle antibody (ASMA) of 1:160 or greater is seen in approximately 80% of patients with HBSAG-neg Chronic Active Hepatitis (CAH). Low ASMA titers may be present in viral infections, malignancies and normal individuals. Smooth muscle Ab IF Ql (S) See Titer 19 (06/26/24 8:05 AM) Normal Neg 20 [facility] SS Comment on above: Interpretive Data: S mooth Muscle Ab Screen and Titer methodology is an immunofluorescent technique utilizing MSK Substrate. LABORATORYOrdered By: SYSTEM SYSTEM on 06-26-2024 PT Coag (PPP) [Time] 15.3 s High 9.0 - 1 4.4 seconds MICHELLE WILEY Comment on above: Interpretive Data: E ffective 06/02/08, Protime results may be affected by some antibiotics (i.e. Ciprofloxacin, Azithromycin, Bactrim) which may potentiate the action of oral anticoagulants, with further increases in Protime/INR. PT International Ratio 1.3 ratio Invalid Interpretation Code HemNabil WILEY Comment on above: Interpretive Data: Alexis briones [employer] (CHEST, 1991, 102:[id number]) recommended therapeutic range for oral anticoagulant therapy is: LOW RISK: Prophylaxis of venous thrombosis INR: 2.0-3.0 Treatment of pulmonary embolism 2.0-3.0 Prevention of systemic embolism 2.0-3.0 HIGH RISK: Mechanical prosthetic valves 2.5-3.5 MGon 06-26-2024 Magnesium [Mass/Vol] 1.5 mg/dL Low 1.6-2.4 [facility] ([place]) Comment on above: Performed By: #### G FR, [id number], DUANE, CMP, ANEU, ADIFF, CBC, PRO, SMUST, SMUSC, JOAQUIM, MG, HEPAC ####[place] [address] MRI MRCPon 06-26-2024 MRI MRCP Normal [facility] ([place]) PROon 06-26-2024 INR Coag (PPP) [Relative time] 1.3 {INR} Normal [facility] ([place]) Comment on above: Result Comment: [employer] (CHEST, 1991, 102:[id number])recommended therapeutic range for oral anticoagulant therapy is:LOW RISK: Prophylaxis of venous thrombosis INR: 2.0-3.0 Treatment of pulmonary embolism 2.0-3.0 Prevention of systemic embolism 2.0-3.0HIGH RISK: Mechanical prosthetic valves 2.5-3.5 Performed By: #### G FR, [id number], DUANE, CMP, ANEU, ADIFF, CBC, PRO, SMUST, SMUSC, JOAQUIM, MG, HEPAC ####[place] [address] PT Coag (PPP) [Time] 15.3 s High 9.0-14.4 [facility] ([place]) Comment on above: Result Comment: Effe ctive 06/02/08, Protime results may be affected by some antibiotics (i.e. Ciprofloxacin, Azithromycin, Bactrim) which may potentiate the action of oral anticoagulants, with further increases in Protime/INR. Performed By: #### G FR, 306603, DUANE, CMP, ANEU, ADIFF, CBC, PRO, SMUST, SMUSC, JOAQUIM, MG, HEPAC ####[address] [address] .Auto Diffon 06-25-2024 Basophil, Absolute 0.1 10 3/mcL Normal 0.0-0.3 [facility] ([place]) Comment on above: Performed By: #### G FR, ADIFF, BMP, MG, CBC, ANEU ####[place] [address] Basophils/100 WBC (Bld) 0.7 % Normal 0.0-2.5 [facility] ([place]) Comment on above: Performed By: #### G FR, ADIFF, BMP, MG, CBC, ANEU ####[address] [address] Eosinophil, Absolute 0.3 10 3/mcL Normal 0.0-0.7 [facility] ([place]) Comment on above: Performed By: #### G FR, ADIFF, BMP, MG, CBC, ANEU ####[address] [address] Eosinophils/100 WBC (Bld) 3.2 % Normal 0.0-6.0 [facility] ([place]) Comment on above: Performed By: #### G FR, ADIFF, BMP, MG, CBC, ANEU ####[address] [address] Lymphocyte, Absolute 2.0 10 3/mcL Normal 0.9-4.3 [facility] ([place]) Comment on above: Performed By: #### G FR, ADIFF, BMP, MG, CBC, ANEU ####[address] [address] Lymphocytes/100 WBC (Bld) 19.1 % Low 20.0-40.0 [facility] ([place]) Comment on above: Performed By: #### G FR, ADIFF, BMP, MG, CBC, ANEU ####[address] [address] Monocyte, Absolute 0.9 10 3/mcL Normal 0.1-1.4 [facility] ([place]) Comment on above: Performed By: #### G FR, ADIFF, BMP, MG, CBC, ANEU ####[address] [address] Monocytes/100 WBC (Bld) 8.8 % Normal 2.0-13.0 [facility] ([place]) Comment on above: Performed By: #### G FR, ADIFF, BMP, MG, CBC, ANEU ####[address] [address] Neutrophils/100 WBC (Bld) 68.2 % Normal 50.0-75.0 [facility] ([place]) Comment on above: Performed By: #### G FR, ADIFF, BMP, MG, CBC, ANEU ####[address] [address] .GFRon 06-25-2024 GFR 50 ml/min/1.73sqm Normal [facility] ([place]) Comment on above: Result Comment: GFR Population mean for , Non- Americans Ages 20-29 = 116 mL/min/1.73 sq.m. Ages 30-39 = 107 mL/min/1.73 sq.m. Ages 40-49 = 99 mL/min/1.73 sq.m. Ages 50-59 = 93 mL/min/1.73 sq.m. Ages 60-69 = 85 mL/min/1.73 sq.m. Ages 70+ = 75 mL/min/1.73 sq.m.Chronic Kidney Disease: Less than 60 mL/min/1.73 square metersEnd Stage Renal Disease: Less than 15 mL/min/1.73 square meters Performed By: #### G FR, ADIFF, BMP, MG, CBC, ANEU ####[place] [address] GFR Non- 41 ml/min/1.73sqm Normal [facility] ([place]) Comment on above: Result Comment: GFR Population mean for , Non- Americans Ages 20-29 = 116 mL/min/1.73 sq.m. Ages 30-39 = 107 mL/min/1.73 sq.m. Ages 40-49 = 99 mL/min/1.73 sq.m. Ages 50-59 = 93 mL/min/1.73 sq.m. Ages 60-69 = 85 mL/min/1.73 sq.m. Ages 70+ = 75 mL/min/1.73 sq.m.Chronic Kidney Disease: Less than 60 mL/min/1.73 square metersEnd Stage Renal Disease: Less than 15 mL/min/1.73 square meters Performed By: #### G FR, ADIFF, BMP, MG, CBC, ANEU ####[address] [address] .NEUABSon 06-25-2024 Neutrophil, Absolute 7.1 10 3/mcL Normal 2.3-8.1 [facility] ([place]) Comment on above: Performed By: #### G FR, ADIFF, BMP, MG, CBC, ANEU ####[address] [address] ALKISOon 06-25-2024 Fasting Y Yes Normal [facility] ([place]) Comment on above: Performed By: #### G FR, [id number], DUANE, CMP, ANEU, ADIFF, CBC, PRO, SMUST, SMUSC, JOAQUIM, MG, HEPAC ####[address] [address] BMPon 06-25-2024 BUN/Creatinine Ratio 14.5 ratio Normal 10.0-22.0 [facility] ([place]) Comment on above: Performed By: #### G FR, ADIFF, BMP, MG, CBC, ANEU ####[place] [address] Calcium [Mass/Vol] 8.4 mg/dL Low 8.7-10.4 [facility] ([place]) Comment on above: Performed By: #### G FR, ADIFF, BMP, MG, CBC, ANEU ####[place] [address] Chloride [Moles/Vol] 108 mmol/L Normal 98-110 [facility] ([place]) Comment on above: Performed By: #### G FR, ADIFF, BMP, MG, CBC, ANEU ####[place] [address] CO2 [Moles/Vol] 24 mmol/L Normal 22-32 [facility] ([place]) Comment on above: Performed By: #### G FR, ADIFF, BMP, MG, CBC, ANEU ####[place] [address] Creatinine [Mass/Vol] 1.79 mg/dL High 0.60-1.40 [facility] ([place]) Comment on above: Performed By: #### G FR, ADIFF, BMP, MG, CBC, ANEU ####[place] [address] Electrolyte Balance 3.0 mEq/L Low 4.0-15.0 [facility] ([place]) Comment on above: Performed By: #### G FR, ADIFF, BMP, MG, CBC, ANEU ####[place] [address] Glucose [Mass/Vol] 179 mg/dL High 70-110 [facility] ([place]) Comment on above: Performed By: #### G FR, ADIFF, BMP, MG, CBC, ANEU ####[place] [address] Potassium [Moles/Vol] 5.5 mmol/L High 3.5-5.0 [facility] ([place]) Comment on above: Performed By: #### G FR, ADIFF, BMP, MG, CBC, ANEU ####[place] [address] Sodium [Moles/Vol] 135 mmol/L Low 136-145 [facility] ([place]) Comment on above: Performed By: #### G FR, ADIFF, BMP, MG, CBC, ANEU ####[place] [address] Urea nitrogen [Mass/Vol] 26.0 mg/dL High 8.0-22.0 [facility] ([place]) Comment on above: Performed By: #### G FR, ADIFF, BMP, MG, CBC, ANEU ####[place] [address] CBCon 06-25-2024 Erythrocyte distribution width (RBC) [Ratio] 19.8 % High 11.5-15.5 [facility] ([place]) Comment on above: Performed By: #### G FR, ADIFF, BMP, MG, CBC, ANEU ####[place] [address] Hematocrit (Bld) [Volume fraction] 26.8 % Low 40.0-52.0 [facility] ([place]) Comment on above: Performed By: #### G FR, ADIFF, BMP, MG, CBC, ANEU ####[place] [address] Hgb 8.9 G/dL Low 13.0-17.5 [facility] ([place]) Comment on above: Performed By: #### G FR, ADIFF, BMP, MG, CBC, ANEU ####[place] [address] MCH (RBC) [Entitic mass] 27.4 pg Normal 27.0-33.0 [facility] ([place]) Comment on above: Performed By: #### G FR, ADIFF, BMP, MG, CBC, ANEU ####[place] [address] MCHC 33.3 G/dL Normal 32.0-36.0 [facility] ([place]) Comment on above: Performed By: #### G FR, ADIFF, BMP, MG, CBC, ANEU ####[place] [address] MCV (RBC) [Entitic vol] 82.3 fL Normal 81.0-100.0 [facility] ([place]) Comment on above: Performed By: #### G FR, ADIFF, BMP, MG, CBC, ANEU ####[place] [address] Platelet 335 10 3/mcL Normal 150-450 [facility] ([place]) Comment on above: Performed By: #### G FR, ADIFF, BMP, MG, CBC, ANEU ####[place] [address] Platelet mean volume (Bld) [Entitic vol] 7.8 fL Normal 6.4-10.5 [facility] ([place]) Comment on above: Performed By: #### G FR, ADIFF, BMP, MG, CBC, ANEU ####[place] [address] RBC 3.25 10 6/mcL Low 4.50-6.00 [facility] ([place]) Comment on above: Performed By: #### G FR, ADIFF, BMP, MG, CBC, ANEU ####[place] [address] WBC 10.4 10 3/mcL Normal 4.5-10.8 [facility] ([place]) Comment on above: Performed By: #### G FR, ADIFF, BMP, MG, CBC, ANEU ####[address] [address] LABORATORYOrdered By: Louisa Mckenna on 06-25-2024 Blood Glucose Testing Reason Routine (06/25/24 8:51 PM) [facility] Work Phone: MGon 06-25-2024 Magnesium [Mass/Vol] 1.6 mg/dL Normal 1.6-2.4 [facility] ([place]) Comment on above: Performed By: #### G FR, ADIFF, BMP, MG, CBC, ANEU ####[address] [address] .Auto Diffon 06-24-2024 Basophil, Absolute 0.1 10 3/mcL Normal 0.0-0.3 [facility] ([place]) Comment on above: Performed By: #### A ARBEN, GFR, CBC, CMP, ADIFF, MG ####[address] [address] Basophils/100 WBC (Bld) 0.8 % Normal 0.0-2.5 [facility] ([place]) Comment on above: Performed By: #### A ARBEN, GFR, CBC, CMP, ADIFF, MG ####[address] [address] Eosinophil, Absolute 0.3 10 3/mcL Normal 0.0-0.7 [facility] ([place]) Comment on above: Performed By: #### A ARBEN, GFR, CBC, CMP, ADIFF, MG ####[address] [address] Eosinophils/100 WBC (Bld) 3.5 % Normal 0.0-6.0 [facility] ([place]) Comment on above: Performed By: #### A ARBEN, GFR, CBC, CMP, ADIFF, MG ####[address] [address] Lymphocyte, Absolute 2.2 10 3/mcL Normal 0.9-4.3 [facility] ([place]) Comment on above: Performed By: #### A ARBEN, GFR, CBC, CMP, ADIFF, MG ####[address] [address] Lymphocytes/100 WBC (Bld) 24.7 % Normal 20.0-40.0 [facility] ([place]) Comment on above: Performed By: #### A ARBEN, GFR, CBC, CMP, ADIFF, MG ####[address] [address] Monocyte, Absolute 0.8 10 3/mcL Normal 0.1-1.4 [facility] ([place]) Comment on above: Performed By: #### A ARBEN, GFR, CBC, CMP, ADIFF, MG ####[address] [address] Monocytes/100 WBC (Bld) 9.3 % Normal 2.0-13.0 [facility] ([place]) Comment on above: Performed By: #### A ARBEN, GFR, CBC, CMP, ADIFF, MG ####[address] [address] Neutrophils/100 WBC (Bld) 61.7 % Normal 50.0-75.0 [facility] ([place]) Comment on above: Performed By: #### A ARBEN, GFR, CBC, CMP, ADIFF, MG ####[address] [address] .GFRon 06-24-2024 GFR Non- 38 ml/min/1.73sqm Normal [facility] ([place]) Comment on above: Result Comment: GFR Population mean for , Non- Americans Ages 20-29 = 116 mL/min/1.73 sq.m. Ages 30-39 = 107 mL/min/1.73 sq.m. Ages 40-49 = 99 mL/min/1.73 sq.m. Ages 50-59 = 93 mL/min/1.73 sq.m. Ages 60-69 = 85 mL/min/1.73 sq.m. Ages 70+ = 75 mL/min/1.73 sq.m.Chronic Kidney Disease: Less than 60 mL/min/1.73 square metersEnd Stage Renal Disease: Less than 15 mL/min/1.73 square meters Performed By: #### A ARBEN, GFR, CBC, CMP, ADIFF, MG ####[address] [address] GFR 47 ml/min/1.73sqm Normal [facility] ([place]) Comment on above: Result Comment: GFR Population mean for , Non- Americans Ages 20-29 = 116 mL/min/1.73 sq.m. Ages 30-39 = 107 mL/min/1.73 sq.m. Ages 40-49 = 99 mL/min/1.73 sq.m. Ages 50-59 = 93 mL/min/1.73 sq.m. Ages 60-69 = 85 mL/min/1.73 sq.m. Ages 70+ = 75 mL/min/1.73 sq.m.Chronic Kidney Disease: Less than 60 mL/min/1.73 square metersEnd Stage Renal Disease: Less than 15 mL/min/1.73 square meters Performed By: #### A ARBEN, GFR, CBC, CMP, ADIFF, MG ####[place] [address] .NEUABSon 06-24-2024 Neutrophil, Absolute 5.6 10 3/mcL Normal 2.3-8.1 [facility] ([place]) Comment on above: Performed By: #### A ARBEN, GFR, CBC, CMP, ADIFF, MG ####[address] [address] CBCon 06-24-2024 Erythrocyte distribution width (RBC) [Ratio] 19.0 % High 11.5-15.5 [facility] ([place] Comment on above: Performed By: #### A ARBEN, GFR, CBC, CMP, ADIFF, MG ####[address] [address] Hematocrit (Bld) [Volume fraction] 25.3 % Low 40.0-52.0 [facility] ([place]) Comment on above: Performed By: #### A ARBEN, GFR, CBC, CMP, ADIFF, MG ####[address] [address] Hgb 8.3 G/dL Low 13.0-17.5 [facility] ([place]) Comment on above: Performed By: #### A ARBEN, GFR, CBC, CMP, ADIFF, MG ####[place] [address] MCH (RBC) [Entitic mass] 27.0 pg Normal 27.0-33.0 [facility] ([place]) Comment on above: Performed By: #### A ARBEN, GFR, CBC, CMP, ADIFF, MG ####[place] [address] MCHC 32.9 G/dL Normal 32.0-36.0 [facility] ([place] Comment on above: Performed By: #### A ARBEN, GFR, CBC, CMP, ADIFF, MG ####[place] [address] MCV (RBC) [Entitic vol] 82.2 fL Normal 81.0-100.0 [facility] ([place] Comment on above: Performed By: #### A ARBEN, GFR, CBC, CMP, ADIFF, MG ####[place] [address] Platelet 371 10 3/mcL Normal 150-450 [facility] ([place]) Comment on above: Performed By: #### A ARBEN, GFR, CBC, CMP, ADIFF, MG ####[place] [address] Platelet mean volume (Bld) [Entitic vol] 7.3 fL Normal 6.4-10.5 [facility] ([place]) Comment on above: Performed By: #### A ARBEN, GFR, CBC, CMP, ADIFF, MG ####[place] [address] RBC 3.08 10 6/mcL Low 4.50-6.00 [facility] ([place]) Comment on above: Performed By: #### A ARBEN, GFR, CBC, CMP, ADIFF, MG ####[place] [id number] WBC 9.0 10 3/mcL Normal 4.5-10.8 [facility] ([place]) Comment on above: Performed By: #### A ARBEN, GFR, CBC, CMP, ADIFF, MG ####[address] [address] CMPon 06-24-2024 Albumin Level 1.3 G/dL Low 3.2-4.8 [facility] ([place]) Comment on above: Performed By: #### A ARBEN, GFR, CBC, CMP, ADIFF, MG ####[place] [id number] Albumin/Globulin [Mass ratio] 0.3 {ratio} Low 0.9-1.6 [facility] ([place]) Comment on above: Performed By: #### A ARBEN, GFR, CBC, CMP, ADIFF, MG ####[address] [address] ALP [Catalytic activity/Vol] 1826 U/L High 38-126 [facility] ([place]) Comment on above: Performed By: #### A ARBEN, GFR, CBC, CMP, ADIFF, MG ####[place] [id number] ALT [Catalytic activity/Vol] 81 U/L High 12-55 [facility] ([place]) Comment on above: Performed By: #### A ARBEN, GFR, CBC, CMP, ADIFF, MG ####[place] [address] AST [Catalytic activity/Vol] 137 U/L High 8-34 [facility] ([place]) Comment on above: Performed By: #### A ARBEN, GFR, CBC, CMP, ADIFF, MG ####[place] [address] Bili Total 0.30 mg/dL Normal 0.20-1.20 [facility] ([place]) Comment on above: Result Comment: Use of this assay is not recommended for patients undergoing treatment with eltrombopag due to the potential for falsely elevated results. Performed By: #### A ARBEN, GFR, CBC, CMP, ADIFF, MG ####[place] [address] BUN/Creatinine Ratio 12.2 ratio Normal 10.0-22.0 [facility] ([place]) Comment on above: Performed By: #### A ARBEN, GFR, CBC, CMP, ADIFF, MG ####[place] [address] Calcium [Mass/Vol] 8.0 mg/dL Low 8.7-10.4 [facility] ([place] Comment on above: Performed By: #### A ARBEN, GFR, CBC, CMP, ADIFF, MG ####[place] [address] Chloride [Moles/Vol] 110 mmol/L Normal 98-110 [facility] ([place]) Comment on above: Performed By: #### A ARBEN, GFR, CBC, CMP, ADIFF, MG ####[place] [address] CO2 [Moles/Vol] 23 mmol/L Normal 22-32 [facility] ([place]) Comment on above: Performed By: #### A ARBEN, GFR, CBC, CMP, ADIFF, MG ####[place] [address] Creatinine [Mass/Vol] 1.89 mg/dL High 0.60-1.40 [facility] ([place]) Comment on above: Performed By: #### A ARBEN, GFR, CBC, CMP, ADIFF, MG ####[place] [address] Electrolyte Balance 5.0 mEq/L Normal 4.0-15.0 [facility] ([place]) Comment on above: Performed By: #### A ARBEN, GFR, CBC, CMP, ADIFF, MG ####[place] [address] Globulin 5.0 G/dL High 1.5-3.8 [facility] ([place]) Comment on above: Performed By: #### A ARBEN, GFR, CBC, CMP, ADIFF, MG ####[place] [address] Glucose [Mass/Vol] 120 mg/dL High 70-110 [facility] ([place] Comment on above: Performed By: #### A ARBEN, GFR, CBC, CMP, ADIFF, MG ####[place] [address] Potassium [Moles/Vol] 5.1 mmol/L High 3.5-5.0 [facility] ([place]) Comment on above: Performed By: #### A ARBEN, GFR, CBC, CMP, ADIFF, MG ####[place] [address] Sodium [Moles/Vol] 138 mmol/L Normal 136-145 [facility] ([place] Comment on above: Performed By: #### A ARBEN, GFR, CBC, CMP, ADIFF, MG ####[place] [address] Total Protein 6.3 G/dL Normal 5.7-8.2 [facility] ([place]) Comment on above: Result Comment: No te - New Reference Range in effect 20 Performed By: #### A ARBEN, GFR, CBC, CMP, ADIFF, MG ####[place] [address] Urea nitrogen [Mass/Vol] 23.0 mg/dL High 8.0-22.0 [facility] ([place]) Comment on above: Performed By: #### A ARBEN, GFR, CBC, CMP, ADIFF, MG ####[place] [address] GGTon 06-24-2024 Gamma GT 645 U/L High 15-85 [facility] ([place]) Comment on above: Performed By: #### G GT ####[place] [address] LABORATORYOrdered By: SYSTEM SYSTEM on 06-24-2024 Gamma glutamyl transferase [Catalytic activity/Vol] 645 U/L High 15 - 85 U/L ADM SS MGon 06-24-2024 Magnesium [Mass/Vol] 1.8 mg/dL Normal 1.6-2.4 [facility] ([place]) Comment on above: Performed By: #### A ARBEN, GFR, CBC, CMP, ADIFF, MG ####[place] [address] .Auto Diffon 06-23-2024 Basophil, Absolute 0.1 10 3/mcL Normal 0.0-0.3 [facility] ([place]) Comment on above: Performed By: #### G FR, CBC, MG, CMP, ANEU, ADIFF ####[address] [address] Basophils/100 WBC (Bld) 0.8 % Normal 0.0-2.5 [facility] ([place]) Comment on above: Performed By: #### G FR, CBC, MG, CMP, ANEU, ADIFF ####[address] [address] Eosinophil, Absolute 0.2 10 3/mcL Normal 0.0-0.7 [facility] ([place]) Comment on above: Performed By: #### G FR, CBC, MG, CMP, ANEU, ADIFF ####[address] [address] Eosinophils/100 WBC (Bld) 3.1 % Normal 0.0-6.0 [facility] ([place]) Comment on above: Performed By: #### G FR, CBC, MG, CMP, ANEU, ADIFF ####[address] [address] Lymphocyte, Absolute 1.8 10 3/mcL Normal 0.9-4.3 [facility] ([place] Comment on above: Performed By: #### G FR, CBC, MG, CMP, ANEU, ADIFF ####[address] [address] Lymphocytes/100 WBC (Bld) 22.9 % Normal 20.0-40.0 [facility] ([place]) Comment on above: Performed By: #### G FR, CBC, MG, CMP, ANEU, ADIFF ####[address] [address] Monocyte, Absolute 0.8 10 3/mcL Normal 0.1-1.4 [facility] ([place] Comment on above: Performed By: #### G FR, CBC, MG, CMP, ANEU, ADIFF ####[address] [address] Monocytes/100 WBC (Bld) 9.6 % Normal 2.0-13.0 [facility] ([place]) Comment on above: Performed By: #### G FR, CBC, MG, CMP, ANEU, ADIFF ####[place] [id number] [address] [place] [address] Neutrophils/100 WBC (Bld) 63.6 % Normal 50.0-75.0 [facility] ([place]) Comment on above: Performed By: #### G FR, CBC, MG, CMP, ANEU, ADIFF ####[address] [address] .GFRon 06-23-2024 GFR Non- 37 ml/min/1.73sqm Normal [facility] ([place]) Comment on above: Result Comment: GFR Population mean for , Non- Americans Ages 20-29 = 116 mL/min/1.73 sq.m. Ages 30-39 = 107 mL/min/1.73 sq.m. Ages 40-49 = 99 mL/min/1.73 sq.m. Ages 50-59 = 93 mL/min/1.73 sq.m. Ages 60-69 = 85 mL/min/1.73 sq.m. Ages 70+ = 75 mL/min/1.73 sq.m.Chronic Kidney Disease: Less than 60 mL/min/1.73 square metersEnd Stage Renal Disease: Less than 15 mL/min/1.73 square meters Performed By: #### G FR, CBC, MG, CMP, ANEU, ADIFF ####[place] [id number] [place] [address] GFR 44 ml/min/1.73sqm Normal [facility] ([place]) Comment on above: Result Comment: GFR Population mean for , Non- Americans Ages 20-29 = 116 mL/min/1.73 sq.m. Ages 30-39 = 107 mL/min/1.73 sq.m. Ages 40-49 = 99 mL/min/1.73 sq.m. Ages 50-59 = 93 mL/min/1.73 sq.m. Ages 60-69 = 85 mL/min/1.73 sq.m. Ages 70+ = 75 mL/min/1.73 sq.m.Chronic Kidney Disease: Less than 60 mL/min/1.73 square metersEnd Stage Renal Disease: Less than 15 mL/min/1.73 square meters Performed By: #### G FR, CBC, MG, CMP, ANEU, ADIFF ####[place] [address] .NEUABSon 06-23-2024 Neutrophil, Absolute 5.0 10 3/mcL Normal 2.3-8.1 [facility] ([place] Comment on above: Performed By: #### G FR, CBC, MG, CMP, ANEU, ADIFF ####[place] [address] CBCon 06-23-2024 Erythrocyte distribution width (RBC) [Ratio] 19.3 % High 11.5-15.5 [facility] ([place] Comment on above: Performed By: #### G FR, CBC, MG, CMP, ANEU, ADIFF ####[place] [address] Hematocrit (Bld) [Volume fraction] 24.1 % Low 40.0-52.0 [facility] ([place] Comment on above: Performed By: #### G FR, CBC, MG, CMP, ANEU, ADIFF ####[place] [address] Hgb 8.0 G/dL Low 13.0-17.5 [facility] ([place] Comment on above: Performed By: #### G FR, CBC, MG, CMP, ANEU, ADIFF ####[place] [address] MCH (RBC) [Entitic mass] 27.0 pg Normal 27.0-33.0 [facility] ([place] Comment on above: Performed By: #### G FR, CBC, MG, CMP, ANEU, ADIFF ####[place] [address] MCHC 33.2 G/dL Normal 32.0-36.0 [facility] ([place]) Comment on above: Performed By: #### G FR, CBC, MG, CMP, ANEU, ADIFF ####[place] [address] MCV (RBC) [Entitic vol] 81.3 fL Normal 81.0-100.0 [facility] ([place] Comment on above: Performed By: #### G FR, CBC, MG, CMP, ANEU, ADIFF ####[place] [address] Platelet 371 10 3/mcL Normal 150-450 [facility] ([place] Comment on above: Performed By: #### G FR, CBC, MG, CMP, ANEU, ADIFF ####[place] [address] Platelet mean volume (Bld) [Entitic vol] 7.0 fL Normal 6.4-10.5 [facility] ([place] Comment on above: Performed By: #### G FR, CBC, MG, CMP, ANEU, ADIFF ####[place] [address] RBC 2.97 10 6/mcL Low 4.50-6.00 [facility] ([place]) Comment on above: Performed By: #### G FR, CBC, MG, CMP, ANEU, ADIFF ####[place] [address] WBC 7.9 10 3/mcL Normal 4.5-10.8 [facility] ([place] Comment on above: Performed By: #### G FR, CBC, MG, CMP, ANEU, ADIFF ####[place] [address] CBLon 06-23-2024 CBL Normal [facility] ([place]) CMPon 06-23-2024 Albumin Level 1.2 G/dL Low 3.2-4.8 [facility] ([place]) Comment on above: Performed By: #### G FR, CBC, MG, CMP, ANEU, ADIFF ####[place] [address] Albumin/Globulin [Mass ratio] 0.2 {ratio} Low 0.9-1.6 [facility] ([place] Comment on above: Performed By: #### G FR, CBC, MG, CMP, ANEU, ADIFF ####[address] [address] ALP [Catalytic activity/Vol] 1608 U/L High 38-126 [facility] ([place] Comment on above: Performed By: #### G FR, CBC, MG, CMP, ANEU, ADIFF ####[place] [address] ALT [Catalytic activity/Vol] 50 U/L Normal 12-55 [facility] ([place]) Comment on above: Performed By: #### G FR, CBC, MG, CMP, ANEU, ADIFF ####[place] [address] AST [Catalytic activity/Vol] 67 U/L High 8-34 [facility] ([place] Comment on above: Performed By: #### G FR, CBC, MG, CMP, ANEU, ADIFF ####[place] [address] Bili Total 0.20 mg/dL Normal 0.20-1.20 [facility] ([place]) Comment on above: Result Comment: Use of this assay is not recommended for patients undergoing treatment with eltrombopag due to the potential for falsely elevated results. Performed By: #### G FR, CBC, MG, CMP, ANEU, ADIFF ####[place] [address] BUN/Creatinine Ratio 12.2 ratio Normal 10.0-22.0 [facility] ([place]) Comment on above: Performed By: #### G FR, CBC, MG, CMP, ANEU, ADIFF ####[place] [address] Calcium [Mass/Vol] 8.0 mg/dL Low 8.7-10.4 [facility] ([place]) Comment on above: Performed By: #### G FR, CBC, MG, CMP, ANEU, ADIFF ####[place] [address] Chloride [Moles/Vol] 111 mmol/L High 98-110 [facility] ([place] Comment on above: Performed By: #### G FR, CBC, MG, CMP, ANEU, ADIFF ####[address] [address] CO2 [Moles/Vol] 23 mmol/L Normal 22-32 [facility] ([place] Comment on above: Performed By: #### G FR, CBC, MG, CMP, ANEU, ADIFF ####[address] [address] Creatinine [Mass/Vol] 1.97 mg/dL High 0.60-1.40 [facility] ([place] Comment on above: Performed By: #### G FR, CBC, MG, CMP, ANEU, ADIFF ####[place] [address] Electrolyte Balance 2.0 mEq/L Low 4.0-15.0 [facility] ([place]) Comment on above: Performed By: #### G FR, CBC, MG, CMP, ANEU, ADIFF ####[place] [id number] Globulin 5.1 G/dL High 1.5-3.8 [facility] ([place]) Comment on above: Performed By: #### G FR, CBC, MG, CMP, ANEU, ADIFF ####[place] [address] Glucose [Mass/Vol] 140 mg/dL High 70-110 [facility] ([place] Comment on above: Performed By: #### G FR, CBC, MG, CMP, ANEU, ADIFF ####[address] [address] Potassium [Moles/Vol] 5.0 mmol/L Normal 3.5-5.0 [facility] ([place]) Comment on above: Performed By: #### G FR, CBC, MG, CMP, ANEU, ADIFF ####[place] [address] Sodium [Moles/Vol] 136 mmol/L Normal 136-145 [facility] ([place] Comment on above: Performed By: #### G FR, CBC, MG, CMP, ANEU, ADIFF ####[place] [address] Total Protein 6.3 G/dL Normal 5.7-8.2 [facility] ([place]) Comment on above: Result Comment: No te - New Reference Range in effect 20 Performed By: #### G FR, CBC, MG, CMP, ANEU, ADIFF ####[place] [address] Urea nitrogen [Mass/Vol] 24.0 mg/dL High 8.0-22.0 [facility] ([place] Comment on above: Performed By: #### G FR, CBC, MG, CMP, ANEU, ADIFF ####[place] [address] IR ASPIRATION/DRAINAGEon IR ASPIRATION/DRAINAGE Normal [facility] ([place]) LABORATORYOrdered By: Aleksey Barajas on 06-23-2024 LDose Vancomycin:(trough) See eMAR (06/23/24 10:35 PM) Normal Chemistry S LABORATORYOrdered By: SYSTEM SYSTEM on 06-23-2024 Vancomycin trough [Mass/Vol] 20.8 ug/mL Invalid Interpretation Code 5.0 - 20.0 mcg/mL AH ADM SS MGon 06-23-2024 Magnesium [Mass/Vol] 1.9 mg/dL Normal 1.6-2.4 [facility] ([place]) Comment on above: Performed By: #### G FR, CBC, MG, CMP, ANEU, ADIFF ####[place] [address] US ABDOMEN LIMITEDon 024 US ABDOMEN LIMITED Normal [facility] ([place]) VANCTon 06-23-2024 LDose Vancomycin:(trough) See eMAR Normal [facility] ([place] Comment on above: Performed By: #### V ANCT ####[place] [address] Vancomycin Tr 20.8 mcg/mL Critically abnormal 5.0-20.0 [facility] ([place]) Comment on above: Performed By: #### V ANCT ####[place] [address] .Auto Diffon 06-22-2024 Basophil, Absolute 0.1 10 3/mcL Normal 0.0-0.3 [facility] ([place]) Comment on above: Performed By: #### A DIFF, CMP, ANEU, CBC, GFR, MG ####[address] [address] Basophils/100 WBC (Bld) 0.7 % Normal 0.0-2.5 [facility] ([place]) Comment on above: Performed By: #### A DIFF, CMP, ANEU, CBC, GFR, MG ####[address] [address] Eosinophil, Absolute 0.3 10 3/mcL Normal 0.0-0.7 [facility] ([place]) Comment on above: Performed By: #### A DIFF, CMP, ANEU, CBC, GFR, MG ####[address] [address] Eosinophils/100 WBC (Bld) 3.9 % Normal 0.0-6.0 [facility] ([place] Comment on above: Performed By: #### A DIFF, CMP, ANEU, CBC, GFR, MG ####[address] [address] Lymphocyte, Absolute 1.8 10 3/mcL Normal 0.9-4.3 [facility] ([place]) Comment on above: Performed By: #### A DIFF, CMP, ANEU, CBC, GFR, MG ####[address] [address] Lymphocytes/100 WBC (Bld) 23.8 % Normal 20.0-40.0 [facility] ([place]) Comment on above: Performed By: #### A DIFF, CMP, ANEU, CBC, GFR, MG ####[address] [address] Monocyte, Absolute 0.8 10 3/mcL Normal 0.1-1.4 [facility] ([place] Comment on above: Performed By: #### A DIFF, CMP, ANEU, CBC, GFR, MG ####[address] [address] Monocytes/100 WBC (Bld) 10.5 % Normal 2.0-13.0 [facility] ([place] Comment on above: Performed By: #### A DIFF, CMP, ANEU, CBC, GFR, MG ####[address] [address] Neutrophils/100 WBC (Bld) 61.1 % Normal 50.0-75.0 [facility] ([place]) Comment on above: Performed By: #### A DIFF, CMP, ANEU, CBC, GFR, MG ####[address] [address] .GFRon 06-22-2024 GFR 43 ml/min/1.73sqm Normal [facility] ([place]) Comment on above: Result Comment: GFR Population mean for , Non- Americans Ages 20-29 = 116 mL/min/1.73 sq.m. Ages 30-39 = 107 mL/min/1.73 sq.m. Ages 40-49 = 99 mL/min/1.73 sq.m. Ages 50-59 = 93 mL/min/1.73 sq.m. Ages 60-69 = 85 mL/min/1.73 sq.m. Ages 70+ = 75 mL/min/1.73 sq.m.Chronic Kidney Disease: Less than 60 mL/min/1.73 square metersEnd Stage Renal Disease: Less than 15 mL/min/1.73 square meters Performed By: #### A DIFF, CMP, ANEU, CBC, GFR, MG ####[address] [address] GFR Non- 35 ml/min/1.73sqm Normal [facility] ([place]) Comment on above: Result Comment: GFR Population mean for , Non- Americans Ages 20-29 = 116 mL/min/1.73 sq.m. Ages 30-39 = 107 mL/min/1.73 sq.m. Ages 40-49 = 99 mL/min/1.73 sq.m. Ages 50-59 = 93 mL/min/1.73 sq.m. Ages 60-69 = 85 mL/min/1.73 sq.m. Ages 70+ = 75 mL/min/1.73 sq.m.Chronic Kidney Disease: Less than 60 mL/min/1.73 square metersEnd Stage Renal Disease: Less than 15 mL/min/1.73 square meters Performed By: #### A DIFF, CMP, ANEU, CBC, GFR, MG ####[place] [address] .NEUABSon 06-22-2024 Neutrophil, Absolute 4.6 10 3/mcL Normal 2.3-8.1 [facility] ([place] Comment on above: Performed By: #### A DIFF, CMP, ANEU, CBC, GFR, MG ####[place] [address] APTTon 06-22-2024 aPTT Coag (Bld) [Time] 53.4 s High 25.0-35.0 [facility] ([place]) Comment on above: Result Comment: For Heparin anticoagulation therapy, the recommendedtherapeutic range is: 54-77 seconds (APTT Correlationwith Anti-Xa therapeutic range of 0.3-0.7 units/ml).PLEASE REFERENCE THE PHARMACY PROTOCOL FOR DOSING. Performed By: #### A PTT ####[place] [address] aPTT Coag (Bld) [Time] 44.6 s High 25.0-35.0 [facility] ([place]) Comment on above: Result Comment: For Heparin anticoagulation therapy, the recommendedtherapeutic range is: 54-77 seconds (APTT Correlationwith Anti-Xa therapeutic range of 0.3-0.7 units/ml).PLEASE REFERENCE THE PHARMACY PROTOCOL FOR DOSING. Performed By: #### A PTT ####[place] [address] aPTT Coag (Bld) [Time] 43.7 s High 25.0-35.0 [facility] ([place]) Comment on above: Result Comment: For Heparin anticoagulation therapy, the recommendedtherapeutic range is: 54-77 seconds (APTT Correlationwith Anti-Xa therapeutic range of 0.3-0.7 units/ml).PLEASE REFERENCE THE PHARMACY PROTOCOL FOR DOSING. Performed By: #### A PTT ####[place] [address] CBCon 06-22-2024 Erythrocyte distribution width (RBC) [Ratio] 19.0 % High 11.5-15.5 [facility] ([place]) Comment on above: Performed By: #### A DIFF, CMP, ANEU, CBC, GFR, MG ####[place] [address] Hematocrit (Bld) [Volume fraction] 23.2 % Low 40.0-52.0 [facility] ([place]) Comment on above: Performed By: #### A DIFF, CMP, ANEU, CBC, GFR, MG ####[place] [address] Hgb 7.6 G/dL Low 13.0-17.5 [facility] ([place] Comment on above: Performed By: #### A DIFF, CMP, ANEU, CBC, GFR, MG ####[place] [address] MCH (RBC) [Entitic mass] 26.6 pg Low 27.0-33.0 [facility] ([place] Comment on above: Performed By: #### A DIFF, CMP, ANEU, CBC, GFR, MG ####[place] [address] MCHC 32.8 G/dL Normal 32.0-36.0 [facility] ([place]) Comment on above: Performed By: #### A DIFF, CMP, ANEU, CBC, GFR, MG ####[place] [address] MCV (RBC) [Entitic vol] 81.1 fL Normal 81.0-100.0 [facility] ([place] Comment on above: Performed By: #### A DIFF, CMP, ANEU, CBC, GFR, MG ####[place] [address] Platelet 402 10 3/mcL Normal 150-450 [facility] ([place] Comment on above: Performed By: #### A DIFF, CMP, ANEU, CBC, GFR, MG ####[place] [address] Platelet mean volume (Bld) [Entitic vol] 7.1 fL Normal 6.4-10.5 [facility] ([place] Comment on above: Performed By: #### A DIFF, CMP, ANEU, CBC, GFR, MG ####[address] [address] RBC 2.86 10 6/mcL Low 4.50-6.00 [facility] ([place] Comment on above: Performed By: #### A DIFF, CMP, ANEU, CBC, GFR, MG ####[place] [id number] WBC 7.5 10 3/mcL Normal 4.5-10.8 [facility] ([place] Comment on above: Performed By: #### A DIFF, CMP, ANEU, CBC, GFR, MG ####[address] [address] CMPon 06-22-2024 Albumin Level 1.2 G/dL Low 3.2-4.8 [facility] ([place] Comment on above: Performed By: #### A DIFF, CMP, ANEU, CBC, GFR, MG ####[place] [address] Albumin/Globulin [Mass ratio] 0.3 {ratio} Low 0.9-1.6 [facility] ([place] Comment on above: Performed By: #### A DIFF, CMP, ANEU, CBC, GFR, MG ####[address] [address] ALP [Catalytic activity/Vol] 1525 U/L High 38-126 [facility] ([place] Comment on above: Performed By: #### A DIFF, CMP, ANEU, CBC, GFR, MG ####[address] [address] ALT [Catalytic activity/Vol] 38 U/L Normal 12-55 [facility] ([place] Comment on above: Performed By: #### A DIFF, CMP, ANEU, CBC, GFR, MG ####[address] [address] AST [Catalytic activity/Vol] 48 U/L High 8-34 [facility] ([place] Comment on above: Performed By: #### A DIFF, CMP, ANEU, CBC, GFR, MG ####[place] [id number] Bili Total 0.20 mg/dL Normal 0.20-1.20 [facility] ([place]) Comment on above: Result Comment: Use of this assay is not recommended for patients undergoing treatment with eltrombopag due to the potential for falsely elevated results. Performed By: #### A DIFF, CMP, ANEU, CBC, GFR, MG ####[place] [address] BUN/Creatinine Ratio 13.7 ratio Normal 10.0-22.0 [facility] ([place]) Comment on above: Performed By: #### A DIFF, CMP, ANEU, CBC, GFR, MG ####[place] [address] Calcium [Mass/Vol] 7.6 mg/dL Low 8.7-10.4 [facility] ([place] Comment on above: Performed By: #### A DIFF, CMP, ANEU, CBC, GFR, MG ####[place] [address] Chloride [Moles/Vol] 109 mmol/L Normal 98-110 [facility] ([place] Comment on above: Performed By: #### A DIFF, CMP, ANEU, CBC, GFR, MG ####[place] [id number] CO2 [Moles/Vol] 23 mmol/L Normal 22-32 [facility] ([place] Comment on above: Performed By: #### A DIFF, CMP, ANEU, CBC, GFR, MG ####[place] [address] Creatinine [Mass/Vol] 2.04 mg/dL High 0.60-1.40 [facility] ([place]) Comment on above: Performed By: #### A DIFF, CMP, ANEU, CBC, GFR, MG ####[place] [id number] Electrolyte Balance 5.0 mEq/L Normal 4.0-15.0 [facility] ([place] Comment on above: Performed By: #### A DIFF, CMP, ANEU, CBC, GFR, MG ####[address] [address] Globulin 4.6 G/dL High 1.5-3.8 [facility] ([place] Comment on above: Performed By: #### A DIFF, CMP, ANEU, CBC, GFR, MG ####[address] [address] Glucose [Mass/Vol] 172 mg/dL High 70-110 [facility] ([place] Comment on above: Performed By: #### A DIFF, CMP, ANEU, CBC, GFR, MG ####[address] [address] Potassium [Moles/Vol] 4.3 mmol/L Normal 3.5-5.0 [facility] ([place] Comment on above: Performed By: #### A DIFF, CMP, ANEU, CBC, GFR, MG ####[place] [address] Sodium [Moles/Vol] 137 mmol/L Normal 136-145 [facility] ([place] Comment on above: Performed By: #### A DIFF, CMP, ANEU, CBC, GFR, MG ####[place] [address] Total Protein 5.8 G/dL Normal 5.7-8.2 [facility] ([place]) Comment on above: Result Comment: No te - New Reference Range in effect 20 Performed By: #### A DIFF, CMP, ANEU, CBC, GFR, MG ####[place] [address] Urea nitrogen [Mass/Vol] 28.0 mg/dL High 8.0-22.0 [facility] ([place] Comment on above: Performed By: #### A DIFF, CMP, ANEU, CBC, GFR, MG ####[address] [address] LABORATORYOrdered By: SYSTEM SYSTEM on 06-22-2024 aPTT Coag (Bld) [Time] 53.4 s High 25.0 - 35.0 seconds AH [facility] SS Comment on above: Interpretive Data: F or Heparin anticoagulation therapy, the recommended therapeutic range is: 54-77 seconds (APTT Correlation with Anti-Xa therapeutic range of 0.3-0.7 units/ml). PLEASE REFERENCE THE PHARMACY PROTOCOL FOR DOSING. Vancomycin trough [Mass/Vol] 20.0 ug/mL Normal 5.0 - 20.0 mcg/mL ADM SS aPTT Coag (Bld) [Time] 44.6 s High 25.0 - 35.0 seconds [facility] SS Comment on above: Interpretive Data: F or Heparin anticoagulation therapy, the recommended therapeutic range is: 54-77 seconds (APTT Correlation with Anti-Xa therapeutic range of 0.3-0.7 units/ml). PLEASE REFERENCE THE PHARMACY PROTOCOL FOR DOSING. aPTT Coag (Bld) [Time] 43.7 s High 25.0 - 35.0 seconds [facility] Comment on above: Interpretive Data: F or Heparin anticoagulation therapy, the recommended therapeutic range is: 54-77 seconds (APTT Correlation with Anti-Xa therapeutic range of 0.3-0.7 units/ml). PLEASE REFERENCE THE PHARMACY PROTOCOL FOR DOSING. LABORATORYOrdered By: Radha Craft on 06-22-2024 LDose Vancomycin:(trough) See eMAR (06/22/24 9:09 PM) Normal Chemistry S MGon 06-22-2024 Magnesium [Mass/Vol] 1.8 mg/dL Normal 1.6-2.4 [facility] ([place]) Comment on above: Performed By: #### A DIFF, CMP, ANEU, CBC, GFR, MG ####[place] [address] [facility] LDose Vancomycin:(trough) See eMAR Normal [facility] ([place] Comment on above: Performed By: #### V ANCT ####[place] [address] Vancomycin Tr 20.0 mcg/mL Normal 5.0-20.0 [facility] ([place]) Comment on above: Performed By: #### V ANCT ####[place] [address] .Auto Diffon 06-21-2024 Basophil, Absolute 0.0 10 3/mcL Normal 0.0-0.3 [facility] ([place] Comment on above: Performed By: #### A ARBEN, CBC, ADIFF, GFR, CMP, MG ####[address] [address] Basophils/100 WBC (Bld) 0.6 % Normal 0.0-2.5 [facility] ([place]) Comment on above: Performed By: #### A ARBEN, CBC, ADIFF, GFR, CMP, MG ####[address] [address] Eosinophil, Absolute 0.3 10 3/mcL Normal 0.0-0.7 [facility] ([place] Comment on above: Performed By: #### A ARBEN, CBC, ADIFF, GFR, CMP, MG ####[address] [address] Eosinophils/100 WBC (Bld) 4.2 % Normal 0.0-6.0 [facility] ([place]) Comment on above: Performed By: #### A ARBEN, CBC, ADIFF, GFR, CMP, MG ####[address] [address] Lymphocyte, Absolute 1.8 10 3/mcL Normal 0.9-4.3 [facility] ([place] Comment on above: Performed By: #### A ARBEN, CBC, ADIFF, GFR, CMP, MG ####[address] [address] Lymphocytes/100 WBC (Bld) 23.6 % Normal 20.0-40.0 [facility] ([place] Comment on above: Performed By: #### A ARBEN, CBC, ADIFF, GFR, CMP, MG ####[address] [address] Monocyte, Absolute 0.7 10 3/mcL Normal 0.1-1.4 [facility] ([place] Comment on above: Performed By: #### A ARBEN, CBC, ADIFF, GFR, CMP, MG ####[address] [address] Monocytes/100 WBC (Bld) 9.4 % Normal 2.0-13.0 [facility] ([place] Comment on above: Performed By: #### A ARBEN, CBC, ADIFF, GFR, CMP, MG ####[address] [address] Neutrophils/100 WBC (Bld) 62.2 % Normal 50.0-75.0 [facility] ([place] Comment on above: Performed By: #### A ARBEN, CBC, ADIFF, GFR, CMP, MG ####[address] [address] .GFRon 06-21-2024 GFR 38 ml/min/1.73sqm Normal [facility] ([place]) Comment on above: Result Comment: GFR Population mean for , Non- Americans Ages 20-29 = 116 mL/min/1.73 sq.m. Ages 30-39 = 107 mL/min/1.73 sq.m. Ages 40-49 = 99 mL/min/1.73 sq.m. Ages 50-59 = 93 mL/min/1.73 sq.m. Ages 60-69 = 85 mL/min/1.73 sq.m. Ages 70+ = 75 mL/min/1.73 sq.m.Chronic Kidney Disease: Less than 60 mL/min/1.73 square metersEnd Stage Renal Disease: Less than 15 mL/min/1.73 square meters Performed By: #### A ARBEN, CBC, ADIFF, GFR, CMP, MG ####[address] [address] GFR Non- 32 ml/min/1.73sqm Normal [facility] ([place]) Comment on above: Result Comment: GFR Population mean for , Non- Americans Ages 20-29 = 116 mL/min/1.73 sq.m. Ages 30-39 = 107 mL/min/1.73 sq.m. Ages 40-49 = 99 mL/min/1.73 sq.m. Ages 50-59 = 93 mL/min/1.73 sq.m. Ages 60-69 = 85 mL/min/1.73 sq.m. Ages 70+ = 75 mL/min/1.73 sq.m.Chronic Kidney Disease: Less than 60 mL/min/1.73 square metersEnd Stage Renal Disease: Less than 15 mL/min/1.73 square meters Performed By: #### A ARBEN, CBC, ADIFF, GFR, CMP, MG ####[place] [address] .NEUABSon 06-21-2024 Neutrophil, Absolute 4.6 10 3/mcL Normal 2.3-8.1 [facility] ([place] Comment on above: Performed By: #### A ARBEN, CBC, ADIFF, GFR, CMP, MG ####[place] [address] APTTon 06-21-2024 aPTT Coag (Bld) [Time] 44.1 s High 25.0-35.0 [facility] ([place]) Comment on above: Result Comment: For Heparin anticoagulation therapy, the recommendedtherapeutic range is: 54-77 seconds (APTT Correlationwith Anti-Xa therapeutic range of 0.3-0.7 units/ml).PLEASE REFERENCE THE PHARMACY PROTOCOL FOR DOSING. Performed By: #### A PTT ####[place] [address] CBCon 06-21-2024 Erythrocyte distribution width (RBC) [Ratio] 19.1 % High 11.5-15.5 [facility] ([place]) Comment on above: Performed By: #### A ARBEN, CBC, ADIFF, GFR, CMP, MG ####[place] [address] Hematocrit (Bld) [Volume fraction] 22.5 % Low 40.0-52.0 [facility] ([place]) Comment on above: Performed By: #### A ARBEN, CBC, ADIFF, GFR, CMP, MG ####[place] [address] Hgb 7.4 G/dL Low 13.0-17.5 [facility] ([place]) Comment on above: Performed By: #### A ARBEN, CBC, ADIFF, GFR, CMP, MG ####[place] [address] MCH (RBC) [Entitic mass] 27.1 pg Normal 27.0-33.0 [facility] ([place]) Comment on above: Performed By: #### A ARBEN, CBC, ADIFF, GFR, CMP, MG ####[place] [address] MCHC 32.9 G/dL Normal 32.0-36.0 [facility] ([place]) Comment on above: Performed By: #### A ARBEN, CBC, ADIFF, GFR, CMP, MG ####[place] [address] MCV (RBC) [Entitic vol] 82.4 fL Normal 81.0-100.0 A [facility] ([place]) Comment on above: Performed By: #### A ARBEN, CBC, ADIFF, GFR, CMP, MG ####[place] [address] Platelet 427 10 3/mcL Normal 150-450 [facility] ([place]) Comment on above: Performed By: #### A ARBEN, CBC, ADIFF, GFR, CMP, MG ####[place] [address] Platelet mean volume (Bld) [Entitic vol] 6.9 fL Normal 6.4-10.5 [facility] ([place]) Comment on above: Performed By: #### A ARBEN, CBC, ADIFF, GFR, CMP, MG ####[place] [address] RBC 2.73 10 6/mcL Low 4.50-6.00 [facility] ([place]) Comment on above: Performed By: #### A ARBEN, CBC, ADIFF, GFR, CMP, MG ####[place] [address] WBC 7.5 10 3/mcL Normal 4.5-10.8 [facility] ([place]) Comment on above: Performed By: #### A ARBEN, CBC, ADIFF, GFR, CMP, MG ####[place] [address] CMPon 06-21-2024 Albumin Level 1.2 G/dL Low 3.2-4.8 [facility] ([place]) Comment on above: Performed By: #### A ARBEN, CBC, ADIFF, GFR, CMP, MG ####[place] [address] Albumin/Globulin [Mass ratio] 0.2 {ratio} Low 0.9-1.6 [facility] ([place]) Comment on above: Performed By: #### A ARBEN, CBC, ADIFF, GFR, CMP, MG ####[place] [id number] ALP [Catalytic activity/Vol] 1722 U/L High 38-126 [facility] ([place]) Comment on above: Performed By: #### A ARBEN, CBC, ADIFF, GFR, CMP, MG ####[place] [id number] ALT [Catalytic activity/Vol] 35 U/L Normal 12-55 [facility] ([place]) Comment on above: Performed By: #### A ARBEN, CBC, ADIFF, GFR, CMP, MG ####[place] [id number] AST [Catalytic activity/Vol] 68 U/L High 8-34 [facility] ([place]) Comment on above: Performed By: #### A ARBEN, CBC, ADIFF, GFR, CMP, MG ####[place] [address] Bili Total 0.20 mg/dL Normal 0.20-1.20 [facility] ([place]) Comment on above: Result Comment: Use of this assay is not recommended for patients undergoing treatment with eltrombopag due to the potential for falsely elevated results. Performed By: #### A ARBEN, CBC, ADIFF, GFR, CMP, MG ####[place] [address] BUN/Creatinine Ratio 15.2 ratio Normal 10.0-22.0 [facility] ([place]) Comment on above: Performed By: #### A ARBEN, CBC, ADIFF, GFR, CMP, MG ####[place] [address] Calcium [Mass/Vol] 7.8 mg/dL Low 8.7-10.4 [facility] ([place]) Comment on above: Performed By: #### A ARBEN, CBC, ADIFF, GFR, CMP, MG ####[address] [address] Chloride [Moles/Vol] 110 mmol/L Normal 98-110 [facility] ([place]) Comment on above: Performed By: #### A ARBEN, CBC, ADIFF, GFR, CMP, MG ####[address] [address] CO2 [Moles/Vol] 23 mmol/L Normal 22-32 [facility] ([place]) Comment on above: Performed By: #### A ARBEN, CBC, ADIFF, GFR, CMP, MG ####[address] [address] Creatinine [Mass/Vol] 2.23 mg/dL High 0.60-1.40 [facility] ([place]) Comment on above: Performed By: #### A ARBEN, CBC, ADIFF, GFR, CMP, MG ####[place] [address] Electrolyte Balance 6.0 mEq/L Normal 4.0-15.0 [facility] ([place]) Comment on above: Performed By: #### A ARBEN, CBC, ADIFF, GFR, CMP, MG ####[address] [address] Globulin 5.0 G/dL High 1.5-3.8 [facility] ([place]) Comment on above: Performed By: #### A ARBEN, CBC, ADIFF, GFR, CMP, MG ####[address] [address] Glucose [Mass/Vol] 174 mg/dL High 70-110 [facility] ([place] Comment on above: Performed By: #### A ARBEN, CBC, ADIFF, GFR, CMP, MG ####[address] [address] Potassium [Moles/Vol] 4.4 mmol/L Normal 3.5-5.0 [facility] ([place]) Comment on above: Performed By: #### A ARBEN, CBC, ADIFF, GFR, CMP, MG ####[place] [address] Sodium [Moles/Vol] 139 mmol/L Normal 136-145 [facility] ([place] Comment on above: Performed By: #### A ARBEN, CBC, ADIFF, GFR, CMP, MG ####[place] [address] Total Protein 6.2 G/dL Normal 5.7-8.2 [facility] ([place]) Comment on above: Result Comment: No te - New Reference Range in effect 20 Performed By: #### A ARBEN, CBC, ADIFF, GFR, CMP, MG ####[place] [address] Urea nitrogen [Mass/Vol] 34.0 mg/dL High 8.0-22.0 [facility] ([place]) Comment on above: Performed By: #### A ARBEN, CBC, ADIFF, GFR, CMP, MG ####[place] [address] LABORATORYOrdered By: Yue Somers on 06-21-2024 LDose Vancomycin:(trough) See eMAR (06/21/24 7:29 PM) Normal Chemistry S LABORATORYOrdered By: SYSTEM SYSTEM on 06-21-2024 Vancomycin trough [Mass/Vol] 15.9 ug/mL Normal 5.0 - 20.0 mcg/mL ADM SS MGon 06-21-2024 Magnesium [Mass/Vol] 2.0 mg/dL Normal 1.6-2.4 [facility] ([place]) Comment on above: Performed By: #### A ARBEN, CBC, ADIFF, GFR, CMP, MG ####[place] [address] VANCTon 06-21-2024 LDose Vancomycin:(trough) See eMAR Normal [facility] ([place]) Comment on above: Performed By: #### V ANCT ####[place] [address] Vancomycin Tr 15.9 mcg/mL Normal 5.0-20.0 [facility] ([place]) Comment on above: Performed By: #### V ANCT ####[address] [address] .Auto Diffon 06-20-2024 Basophil, Absolute 0.0 10 3/mcL Normal 0.0-0.3 [facility] ([place]) Comment on above: Performed By: #### G FR, FES, FOL, ANEU, APTT, MG, CMP, VANCR, FERR, CBC, ADIFF ####[address] [address] Basophils/100 WBC (Bld) 0.6 % Normal 0.0-2.5 [facility] ([place]) Comment on above: Performed By: #### G FR, FES, FOL, ANEU, APTT, MG, CMP, VANCR, FERR, CBC, ADIFF ####[place] [address] Eosinophil, Absolute 0.3 10 3/mcL Normal 0.0-0.7 [facility] ([place]) Comment on above: Performed By: #### G FR, FES, FOL, ANEU, APTT, MG, CMP, VANCR, FERR, CBC, ADIFF ####[address] [address] Eosinophils/100 WBC (Bld) 4.3 % Normal 0.0-6.0 [facility] ([place]) Comment on above: Performed By: #### G FR, FES, FOL, ANEU, APTT, MG, CMP, VANCR, FERR, CBC, ADIFF ####[address] [address] Lymphocyte, Absolute 2.1 10 3/mcL Normal 0.9-4.3 [facility] ([place] Comment on above: Performed By: #### G FR, FES, FOL, ANEU, APTT, MG, CMP, VANCR, FERR, CBC, ADIFF ####[address] [address] Lymphocytes/100 WBC (Bld) 27.1 % Normal 20.0-40.0 [facility] ([place]) Comment on above: Performed By: #### G FR, FES, FOL, ANEU, APTT, MG, CMP, VANCR, FERR, CBC, ADIFF ####[place] [phone] [address] [place] [address] Monocyte, Absolute 0.9 10 3/mcL Normal 0.1-1.4 [facility] ([place]) Comment on above: Performed By: #### G FR, FES, FOL, ANEU, APTT, MG, CMP, VANCR, FERR, CBC, ADIFF ####[place] [id number] [address] [place] [address] Monocytes/100 WBC (Bld) 11.0 % Normal 2.0-13.0 [facility] ([place]) Comment on above: Performed By: #### G FR, FES, FOL, ANEU, APTT, MG, CMP, VANCR, FERR, CBC, ADIFF ####[address] [address] Neutrophils/100 WBC (Bld) 57.0 % Normal 50.0-75.0 [facility] ([place] Comment on above: Performed By: #### G FR, FES, FOL, ANEU, APTT, MG, CMP, VANCR, FERR, CBC, ADIFF ####[address] [address] .GFRon 06-20-2024 GFR 32 ml/min/1.73sqm Normal [facility] ([place]) Comment on above: Result Comment: GFR Population mean for , Non- Americans Ages 20-29 = 116 mL/min/1.73 sq.m. Ages 30-39 = 107 mL/min/1.73 sq.m. Ages 40-49 = 99 mL/min/1.73 sq.m. Ages 50-59 = 93 mL/min/1.73 sq.m. Ages 60-69 = 85 mL/min/1.73 sq.m. Ages 70+ = 75 mL/min/1.73 sq.m.Chronic Kidney Disease: Less than 60 mL/min/1.73 square metersEnd Stage Renal Disease: Less than 15 mL/min/1.73 square meters Performed By: #### G FR, FES, FOL, ANEU, APTT, MG, CMP, VANCR, FERR, CBC, ADIFF ####[address] [address] GFR Non- 27 ml/min/1.73sqm Normal [facility] ([place]) Comment on above: Result Comment: GFR Population mean for , Non- Americans Ages 20-29 = 116 mL/min/1.73 sq.m. Ages 30-39 = 107 mL/min/1.73 sq.m. Ages 40-49 = 99 mL/min/1.73 sq.m. Ages 50-59 = 93 mL/min/1.73 sq.m. Ages 60-69 = 85 mL/min/1.73 sq.m. Ages 70+ = 75 mL/min/1.73 sq.m.Chronic Kidney Disease: Less than 60 mL/min/1.73 square metersEnd Stage Renal Disease: Less than 15 mL/min/1.73 square meters Performed By: #### G FR, FES, FOL, ANEU, APTT, MG, CMP, VANCR, FERR, CBC, ADIFF ####[address] [address] .NEUABSon 06-20-2024 Neutrophil, Absolute 4.5 10 3/mcL Normal 2.3-8.1 [facility] ([place] Comment on above: Performed By: #### G FR, FES, FOL, ANEU, APTT, MG, CMP, VANCR, FERR, CBC, ADIFF ####[place] [id number] APTTon 06-20-2024 aPTT Coag (Bld) [Time] 34.1 s Normal 25.0-35.0 [facility] ([place]) Comment on above: Result Comment: For Heparin anticoagulation therapy, the recommendedtherapeutic range is: 54-77 seconds (APTT Correlationwith Anti-Xa therapeutic range of 0.3-0.7 units/ml).PLEASE REFERENCE THE PHARMACY PROTOCOL FOR DOSING. Performed By: #### G FR, FES, FOL, ANEU, APTT, MG, CMP, VANCR, FERR, CBC, ADIFF ####[address] [address] CBCon 06-20-2024 Erythrocyte distribution width (RBC) [Ratio] 18.4 % High 11.5-15.5 [facility] ([place]) Comment on above: Performed By: #### G FR, FES, FOL, ANEU, APTT, MG, CMP, VANCR, FERR, CBC, ADIFF ####[place] [address] Hematocrit (Bld) [Volume fraction] 22.2 % Low 40.0-52.0 [facility] ([place]) Comment on above: Performed By: #### G FR, FES, FOL, ANEU, APTT, MG, CMP, VANCR, FERR, CBC, ADIFF ####[address] [address] Hgb 7.5 G/dL Low 13.0-17.5 [facility] ([place]) Comment on above: Performed By: #### G FR, FES, FOL, ANEU, APTT, MG, CMP, VANCR, FERR, CBC, ADIFF ####[place] [address] MCH (RBC) [Entitic mass] 27.4 pg Normal 27.0-33.0 [facility] ([place]) Comment on above: Performed By: #### G FR, FES, FOL, ANEU, APTT, MG, CMP, VANCR, FERR, CBC, ADIFF ####[place] [address] MCHC 33.8 G/dL Normal 32.0-36.0 [facility] ([place] Comment on above: Performed By: #### G FR, FES, FOL, ANEU, APTT, MG, CMP, VANCR, FERR, CBC, ADIFF ####[place] [address] MCV (RBC) [Entitic vol] 81.1 fL Normal 81.0-100.0 [facility] ([place]) Comment on above: Performed By: #### G FR, FES, FOL, ANEU, APTT, MG, CMP, VANCR, FERR, CBC, ADIFF ####[place] [phone] Platelet 428 10 3/mcL Normal 150-450 [facility] ([place]) Comment on above: Performed By: #### G FR, FES, FOL, ANEU, APTT, MG, CMP, VANCR, FERR, CBC, ADIFF ####[address] [address] Platelet mean volume (Bld) [Entitic vol] 7.1 fL Normal 6.4-10.5 [facility] ([place]) Comment on above: Performed By: #### G FR, FES, FOL, ANEU, APTT, MG, CMP, VANCR, FERR, CBC, ADIFF ####[address] [address] RBC 2.73 10 6/mcL Low 4.50-6.00 [facility] ([place]) Comment on above: Performed By: #### G FR, FES, FOL, ANEU, APTT, MG, CMP, VANCR, FERR, CBC, ADIFF ####[address] [address] WBC 7.9 10 3/mcL Normal 4.5-10.8 [facility] ([place]) Comment on above: Performed By: #### G FR, FES, FOL, ANEU, APTT, MG, CMP, VANCR, FERR, CBC, ADIFF ####[place] [address] CMPon 06-20-2024 Albumin Level 1.5 G/dL Low 3.2-4.8 [facility] ([place]) Comment on above: Performed By: #### G FR, FES, FOL, ANEU, APTT, MG, CMP, VANCR, FERR, CBC, ADIFF ####[address] [address] Albumin/Globulin [Mass ratio] 0.3 {ratio} Low 0.9-1.6 [facility] ([place]) Comment on above: Performed By: #### G FR, FES, FOL, ANEU, APTT, MG, CMP, VANCR, FERR, CBC, ADIFF ####[address] [address] ALP [Catalytic activity/Vol] 1127 U/L High 38-126 [facility] ([place]) Comment on above: Performed By: #### G FR, FES, FOL, ANEU, APTT, MG, CMP, VANCR, FERR, CBC, ADIFF ####[address] [address] ALT [Catalytic activity/Vol] 28 U/L Normal 12-55 [facility] ([place]) Comment on above: Performed By: #### G FR, FES, FOL, ANEU, APTT, MG, CMP, VANCR, FERR, CBC, ADIFF ####[address] [address] AST [Catalytic activity/Vol] 25 U/L Normal 8-34 [facility] ([place]) Comment on above: Performed By: #### G FR, FES, FOL, ANEU, APTT, MG, CMP, VANCR, FERR, CBC, ADIFF ####[address] [address] Bili Total 0.20 mg/dL Normal 0.20-1.20 [facility] ([place]) Comment on above: Result Comment: Use of this assay is not recommended for patients undergoing treatment with eltrombopag due to the potential for falsely elevated results. Performed By: #### G FR, FES, FOL, ANEU, APTT, MG, CMP, VANCR, FERR, CBC, ADIFF ####[place] [address] BUN/Creatinine Ratio 15.1 ratio Normal 10.0-22.0 [facility] ([place]) Comment on above: Performed By: #### G FR, FES, FOL, ANEU, APTT, MG, CMP, VANCR, FERR, CBC, ADIFF ####[address] [address] Calcium [Mass/Vol] 7.5 mg/dL Low 8.7-10.4 [facility] ([place] Comment on above: Performed By: #### G FR, FES, FOL, ANEU, APTT, MG, CMP, VANCR, FERR, CBC, ADIFF ####[address] [address] Chloride [Moles/Vol] 107 mmol/L Normal 98-110 [facility] ([place]) Comment on above: Performed By: #### G FR, FES, FOL, ANEU, APTT, MG, CMP, VANCR, FERR, CBC, ADIFF ####[address] [address] CO2 [Moles/Vol] 24 mmol/L Normal 22-32 [facility] ([place]) Comment on above: Performed By: #### G FR, FES, FOL, ANEU, APTT, MG, CMP, VANCR, FERR, CBC, ADIFF ####[address] [address] Creatinine [Mass/Vol] 2.59 mg/dL High 0.60-1.40 [facility] ([place]) Comment on above: Performed By: #### G FR, FES, FOL, ANEU, APTT, MG, CMP, VANCR, FERR, CBC, ADIFF ####[address] [address] Electrolyte Balance 7.0 mEq/L Normal 4.0-15.0 [facility] ([place] Comment on above: Performed By: #### G FR, FES, FOL, ANEU, APTT, MG, CMP, VANCR, FERR, CBC, ADIFF ####[address] [address] Globulin 5.0 G/dL High 1.5-3.8 [facility] ([place]) Comment on above: Performed By: #### G FR, FES, FOL, ANEU, APTT, MG, CMP, VANCR, FERR, CBC, ADIFF ####[address] [address] Glucose [Mass/Vol] 138 mg/dL High 70-110 [facility] ([place] Comment on above: Performed By: #### G FR, FES, FOL, ANEU, APTT, MG, CMP, VANCR, FERR, CBC, ADIFF ####[address] [address] Potassium [Moles/Vol] 4.1 mmol/L Normal 3.5-5.0 [facility] ([place] Comment on above: Performed By: #### G FR, FES, FOL, ANEU, APTT, MG, CMP, VANCR, FERR, CBC, ADIFF ####[address] [address] Sodium [Moles/Vol] 138 mmol/L Normal 136-145 [facility] ([place] Comment on above: Performed By: #### G FR, FES, FOL, ANEU, APTT, MG, CMP, VANCR, FERR, CBC, ADIFF ####[address] [address] Total Protein 6.5 G/dL Normal 5.7-8.2 [facility] ([place]) Comment on above: Result Comment: No te - New Reference Range in effect 20 Performed By: #### G FR, FES, FOL, ANEU, APTT, MG, CMP, VANCR, FERR, CBC, ADIFF ####[address] [address] Urea nitrogen [Mass/Vol] 39.0 mg/dL High 8.0-22.0 [facility] ([place]) Comment on above: Performed By: #### G FR, FES, FOL, ANEU, APTT, MG, CMP, VANCR, FERR, CBC, ADIFF ####[address] [address] Partha 06-20-2024 Ferritin [Mass/Vol] 397.3 ng/mL High 26.0-388.0 [facility] ([place]) Comment on above: Performed By: #### G FR, FES, FOL, ANEU, APTT, MG, CMP, VANCR, FERR, CBC, ADIFF ####[address] [address] FESon 06-20-2024 Iron [Mass/Vol] 23 ug/dL Low 65-175 [facility] ([place]) Comment on above: Performed By: #### G FR, FES, FOL, ANEU, APTT, MG, CMP, VANCR, FERR, CBC, ADIFF ####[address] [address] Iron Sat 12 % Normal [facility] ([place]) Comment on above: Performed By: #### G FR, FES, FOL, ANEU, APTT, MG, CMP, VANCR, FERR, CBC, ADIFF ####[place] [phone] [place] [address] TIBC 191 mcg/dL Low 250-500 [facility] ([place]) Comment on above: Performed By: #### G FR, FES, FOL, ANEU, APTT, MG, CMP, VANCR, FERR, CBC, ADIFF ####[place] [id number] FOLon 06-20-2024 Folate 7.93 ng/mL Normal 5.38-24.00 [facility] ([place]) Comment on above: Performed By: #### G FR, FES, FOL, ANEU, APTT, MG, CMP, VANCR, FERR, CBC, ADIFF ####[place] [address] LABORATORYOrdered By: Tiffany Ervin on 06-20-2024 LDose Vancomycin: (random) See eMAR (06/20/24 7:38 PM) Normal Chemistry S LABORATORYOrdered By: SYSTEM SYSTEM on 06-20-2024 Vancomycin [Mass/Vol] 23.2 mcg/mL Invalid Interpretation Code ADM SS Ferritin [Mass/Vol] 397.3 ng/mL High 26.0 - 388.0 ng/mL ADM SS Folate [Mass/Vol] 7.93 ng/mL Normal 5.38 - 24.00 ng/mL ADM SS Iron [Mass/Vol] 23 ug/dL Low 65 - 175 mcg/dL ADM SS Iron binding capacity [Mass/Vol] 191 mcg/dL Low 250 - 500 mcg/dL ADM SS Iron saturation [Mass fraction] 12 % Invalid Interpretation Code ADM SS Vancomycin [Mass/Vol] 25.0 mcg/mL Invalid Interpretation Code ADM SS LABORATORYOrdered By: Nathalia Alexander on 06-20-2024 Hemoglobin.gastrointest inal 8th specimen Ql (Stl) Negative 17 (06/20/24 3:28 PM) Normal Negative Manual Urine SS Comment on above: Interpretive Data: T his test utilizes the guaiac fecal blood method, which detects peroxidase activity (heme) indicating bleeding from stomach, small intestine, or large intestine. If bleeding from either upper or lower gastrointestinal tract is a clinical consideration, the [facility] recommends the use of both the guaiac fecal blood test and the Immunochemical fecal blood test. LABORATORYOrdered By: Aleksey Barajas on 06-20-2024 LDose Vancomycin: (random) See eMAR (06/20/24 2:47 AM) Normal AH Chemistry S MGon 06-20-2024 Magnesium [Mass/Vol] 1.6 mg/dL Normal 1.6-2.4 [facility] ([place]) Comment on above: Performed By: #### G FR, FES, FOL, ANEU, APTT, MG, CMP, VANCR, FERR, CBC, ADIFF ####[place] [address] MRI PELVIS W/O CONTRASTon MRI PELVIS W/O CONTRAST Normal [facility] ([place]) OCC (LAB)on 06-20-2024 Occult Blood Fecal Negative Normal Negative [facility] ([place]) Comment on above: Result Comment: This test utilizes the guaiac fecal blood method, which detects peroxidase activity (heme) indicating bleedingfrom stomach, small intestine, or large intestine. Ifbleeding from either upper or lower gastrointestinal tract is a clinical consideration, the [facility] recommends the use of both the guaiac fecal blood test and the Immunochemical fecal blood test. Performed By: #### O CC ####[place] [address] VANCRon 06-20-2024 LDose Vancomycin: (random) See eMAR Normal [facility] ([place]) Comment on above: Performed By: #### V ANCR ####[place] [address] Vancomycin Lvl (random) 23.2 mcg/mL Normal [facility] ([place]) Comment on above: Performed By: #### V ANCR ####[place] [address] LDose Vancomycin: (random) See eMAR Normal [facility] ([place]) Comment on above: Performed By: #### G FR, FES, FOL, ANEU, APTT, MG, CMP, VANCR, FERR, CBC, ADIFF ####[address] [address] Vancomycin Lvl (random) 25.0 mcg/mL Normal [facility] ([place]) Comment on above: Performed By: #### G FR, FES, FOL, ANEU, APTT, MG, CMP, VANCR, FERR, CBC, ADIFF ####[address] [address] .Auto Diffon 06-19-2024 Basophil, Absolute 0.0 10 3/mcL Normal 0.0-0.3 [facility] ([place]) Comment on above: Performed By: #### C MP, ADIFF, ANEU, GFR, CBC ####[place] [address] Basophils/100 WBC (Bld) 0.6 % Normal 0.0-2.5 [facility] ([place]) Comment on above: Performed By: #### C MP, ADIFF, ANEU, GFR, CBC ####[place] [address] Eosinophil, Absolute 0.3 10 3/mcL Normal 0.0-0.7 [facility] ([place]) Comment on above: Performed By: #### C MP, ADIFF, ANEU, GFR, CBC ####[place] [address] Eosinophils/100 WBC (Bld) 4.0 % Normal 0.0-6.0 [facility] ([place]) Comment on above: Performed By: #### C MP, ADIFF, ANEU, GFR, CBC ####[place] [address] Lymphocyte, Absolute 2.2 10 3/mcL Normal 0.9-4.3 [facility] ([place] Comment on above: Performed By: #### C MP, ADIFF, ANEU, GFR, CBC ####[place] [address] Lymphocytes/100 WBC (Bld) 24.9 % Normal 20.0-40.0 [facility] ([place]) Comment on above: Performed By: #### C MP, ADIFF, ANEU, GFR, CBC ####[address] [address] Monocyte, Absolute 1.2 10 3/mcL Normal 0.1-1.4 [facility] ([place] Comment on above: Performed By: #### C MP, ADIFF, ANEU, GFR, CBC ####[address] [address] Monocytes/100 WBC (Bld) 14.0 % High 2.0-13.0 [facility] ([place] Comment on above: Performed By: #### C MP, ADIFF, ANEU, GFR, CBC ####[address] [address] Neutrophils/100 WBC (Bld) 56.5 % Normal 50.0-75.0 [facility] ([place] Comment on above: Performed By: #### C MP, ADIFF, ANEU, GFR, CBC ####[address] [address] .GFRon 06-19-2024 GFR Non- 25 ml/min/1.73sqm Normal [facility] ([place]) Comment on above: Result Comment: GFR Population mean for , Non- Americans Ages 20-29 = 116 mL/min/1.73 sq.m. Ages 30-39 = 107 mL/min/1.73 sq.m. Ages 40-49 = 99 mL/min/1.73 sq.m. Ages 50-59 = 93 mL/min/1.73 sq.m. Ages 60-69 = 85 mL/min/1.73 sq.m. Ages 70+ = 75 mL/min/1.73 sq.m.Chronic Kidney Disease: Less than 60 mL/min/1.73 square metersEnd Stage Renal Disease: Less than 15 mL/min/1.73 square meters Performed By: #### C MP, ADIFF, ANEU, GFR, CBC ####[address] [address] GFR 30 ml/min/1.73sqm Normal [facility] ([place]) Comment on above: Result Comment: GFR Population mean for , Non- Americans Ages 20-29 = 116 mL/min/1.73 sq.m. Ages 30-39 = 107 mL/min/1.73 sq.m. Ages 40-49 = 99 mL/min/1.73 sq.m. Ages 50-59 = 93 mL/min/1.73 sq.m. Ages 60-69 = 85 mL/min/1.73 sq.m. Ages 70+ = 75 mL/min/1.73 sq.m.Chronic Kidney Disease: Less than 60 mL/min/1.73 square metersEnd Stage Renal Disease: Less than 15 mL/min/1.73 square meters Performed By: #### C MP, ADIFF, ANEU, GFR, CBC ####[place] [address] .NEUABSon 06-19-2024 Neutrophil, Absolute 4.9 10 3/mcL Normal 2.3-8.1 [facility] ([place]) Comment on above: Performed By: #### C MP, ADIFF, ANEU, GFR, CBC ####[place] [address] APTTon 06-19-2024 aPTT Coag (Bld) [Time] 34.2 s Normal 25.0-35.0 [facility] ([place]) Comment on above: Result Comment: For Heparin anticoagulation therapy, the recommendedtherapeutic range is: 54-77 seconds (APTT Correlationwith Anti-Xa therapeutic range of 0.3-0.7 units/ml).PLEASE REFERENCE THE PHARMACY PROTOCOL FOR DOSING. Performed By: #### A PTT ####[place] [address] aPTT Coag (Bld) [Time] 32.3 s Normal 25.0-35.0 [facility] ([place] Comment on above: Result Comment: For Heparin anticoagulation therapy, the recommendedtherapeutic range is: 54-77 seconds (APTT Correlationwith Anti-Xa therapeutic range of 0.3-0.7 units/ml).PLEASE REFERENCE THE PHARMACY PROTOCOL FOR DOSING. Performed By: #### A PTT ####[place] [address] [id number] By: SYSTEM SYSTEM on 06-19-2024 Cobalamin (Vitamin B12) [Mass/Vol] 857 pg/mL Normal 211-911 AH ADM SS Comment on above: Performed By: #### B 12, HH ####[place] [address] CBCon 06-19-2024 Erythrocyte distribution width (RBC) [Ratio] 18.6 % High 11.5-15.5 [facility] ([place]) Comment on above: Performed By: #### C MP, ADIFF, ANEU, GFR, CBC ####[place] [address] Hematocrit (Bld) [Volume fraction] 21.2 % Low 40.0-52.0 [facility] ([place]) Comment on above: Performed By: #### C MP, ADIFF, ANEU, GFR, CBC ####[place] [address] Hgb 7.1 G/dL Low 13.0-17.5 [facility] ([place]) Comment on above: Performed By: #### C MP, ADIFF, ANEU, GFR, CBC ####[place] [address] MCH (RBC) [Entitic mass] 26.6 pg Low 27.0-33.0 [facility] ([place]) Comment on above: Performed By: #### C MP, ADIFF, ANEU, GFR, CBC ####[place] [address] MCHC 33.5 G/dL Normal 32.0-36.0 [facility] ([place]) Comment on above: Performed By: #### C MP, ADIFF, ANEU, GFR, CBC ####[place] [address] MCV (RBC) [Entitic vol] 79.4 fL Low 81.0-100.0 [facility] ([place]) Comment on above: Performed By: #### C MP, ADIFF, ANEU, GFR, CBC ####[place] [address] Platelet 418 10 3/mcL Normal 150-450 [facility] ([place]) Comment on above: Performed By: #### C MP, ADIFF, ANEU, GFR, CBC ####[place] [address] Platelet mean volume (Bld) [Entitic vol] 7.2 fL Normal 6.4-10.5 [facility] ([place]) Comment on above: Performed By: #### C MP, ADIFF, ANEU, GFR, CBC ####[place] [address] RBC 2.67 10 6/mcL Low 4.50-6.00 [facility] ([place]) Comment on above: Performed By: #### C MP, ADIFF, ANEU, GFR, CBC ####[place] [address] WBC 8.7 10 3/mcL Normal 4.5-10.8 [facility] ([place]) Comment on above: Performed By: #### C MP, ADIFF, ANEU, GFR, CBC ####[place] [address] CMPon 06-19-2024 Albumin Level 1.2 G/dL Low 3.2-4.8 [facility] ([place]) Comment on above: Performed By: #### C MP, ADIFF, ANEU, GFR, CBC ####[place] [address] Albumin/Globulin [Mass ratio] 0.3 {ratio} Low 0.9-1.6 [facility] ([place]) Comment on above: Performed By: #### C MP, ADIFF, ANEU, GFR, CBC ####[place] [address] ALP [Catalytic activity/Vol] 1435 U/L High 38-126 [facility] ([place]) Comment on above: Performed By: #### C MP, ADIFF, ANEU, GFR, CBC ####[place] [address] ALT [Catalytic activity/Vol] 45 U/L Normal 12-55 [facility] [facility] ([place]) Comment on above: Performed By: #### C MP, ADIFF, ANEU, GFR, CBC ####[place] [address] AST [Catalytic activity/Vol] 58 U/L High 8-34 [facility] ([place]) Comment on above: Performed By: #### C MP, ADIFF, ANEU, GFR, CBC ####[address] [address] Bili Total 0.30 mg/dL Normal 0.20-1.20 [facility] ([place]) Comment on above: Result Comment: Use of this assay is not recommended for patients undergoing treatment with eltrombopag due to the potential for falsely elevated results. Performed By: #### C MP, ADIFF, ANEU, GFR, CBC ####[place] [address] BUN/Creatinine Ratio 19.0 ratio Normal 10.0-22.0 [facility] ([place]) Comment on above: Performed By: #### C MP, ADIFF, ANEU, GFR, CBC ####[address] [address] Calcium [Mass/Vol] 7.2 mg/dL Low 8.7-10.4 [facility] ([place]) Comment on above: Performed By: #### C MP, ADIFF, ANEU, GFR, CBC ####[address] [address] Chloride [Moles/Vol] 108 mmol/L Normal 98-110 [facility] ([place]) Comment on above: Performed By: #### C MP, ADIFF, ANEU, GFR, CBC ####[address] [address] CO2 [Moles/Vol] 24 mmol/L Normal 22-32 [facility] ([place]) Comment on above: Performed By: #### C MP, ADIFF, ANEU, GFR, CBC ####[address] [address] Creatinine [Mass/Vol] 2.74 mg/dL High 0.60-1.40 [facility] ([place]) Comment on above: Performed By: #### C MP, ADIFF, ANEU, GFR, CBC ####[place] [address] Electrolyte Balance 2.0 mEq/L Low 4.0-15.0 [facility] ([place]) Comment on above: Performed By: #### C MP, ADIFF, ANEU, GFR, CBC ####[address] [address] Globulin 4.7 G/dL High 1.5-3.8 [facility] ([place]) Comment on above: Performed By: #### C MP, ADIFF, ANEU, GFR, CBC ####[address] [address] Glucose [Mass/Vol] 73 mg/dL Normal 70-110 [facility] ([place]) Comment on above: Performed By: #### C MP, ADIFF, ANEU, GFR, CBC ####[place] [address] Potassium [Moles/Vol] 4.2 mmol/L Normal 3.5-5.0 [facility] ([place]) Comment on above: Performed By: #### C MP, ADIFF, ANEU, GFR, CBC ####[place] [address] Sodium [Moles/Vol] 134 mmol/L Low 136-145 [facility] ([place] Comment on above: Performed By: #### C MP, ADIFF, ANEU, GFR, CBC ####[place] [address] Total Protein 5.9 G/dL Normal 5.7-8.2 [facility] ([place]) Comment on above: Result Comment: No te - New Reference Range in effect 20 Performed By: #### C MP, ADIFF, ANEU, GFR, CBC ####[address] [address] Urea nitrogen [Mass/Vol] 52.0 mg/dL High 8.0-22.0 [facility] ([place]) Comment on above: Performed By: #### C MP, ADIFF, ANEU, GFR, CBC ####[address] [address] HHon 06-19-2024 Hematocrit (Bld) [Volume fraction] 23.7 % Low 40.0-52.0 [facility] ([place]) Comment on above: Performed By: #### H H ####[place] [address] Hgb 7.9 G/dL Low 13.0-17.5 [facility] ([place]) Comment on above: Performed By: #### H H ####[place] [address] Hematocrit (Bld) [Volume fraction] 22.8 % Low 40.0-52.0 [facility] ([place]) Comment on above: Performed By: #### B 12, HH ####[place] [address] Hgb 7.6 G/dL Low 13.0-17.5 [facility] ([place]) Comment on above: Performed By: #### B 12, HH ####[place] [address] LABORATORYOrdered By: Heber Mcmullen on 06-19-2024 LDose Vancomycin: (random) See eMAR (06/19/24 7:25 PM) Normal Chemistry S LABORATORYOrdered By: SYSTEM SYSTEM on 06-19-2024 Vancomycin [Mass/Vol] 29.5 mcg/mL Invalid Interpretation Code AH ADM SS VANCRon 06-19-2024 LDose Vancomycin: (random) See eMAR Normal [facility] ([place]) Comment on above: Performed By: #### V ANCR ####[place] [address] Vancomycin Lvl (random) 29.5 mcg/mL Normal [facility] ([place]) Comment on above: Performed By: #### V ANCR ####[place] [address] .Auto Diffon 06-18-2024 Basophil, Absolute 0.0 10 3/mcL Normal 0.0-0.3 [facility] ([place]) Comment on above: Performed By: #### B MP, GFR, ADIFF, CBC, ANEU, CK ####[place] [address] Basophils/100 WBC (Bld) 0.4 % Normal 0.0-2.5 [facility] ([place]) Comment on above: Performed By: #### B MP, GFR, ADIFF, CBC, ANEU, CK ####[address] [address] Eosinophil, Absolute 0.2 10 3/mcL Normal 0.0-0.7 [facility] ([place]) Comment on above: Performed By: #### B MP, GFR, ADIFF, CBC, ANEU, CK ####[address] [address] Eosinophils/100 WBC (Bld) 2.3 % Normal 0.0-6.0 [facility] ([place]) Comment on above: Performed By: #### B MP, GFR, ADIFF, CBC, ANEU, CK ####[address] [address] Lymphocyte, Absolute 1.8 10 3/mcL Normal 0.9-4.3 [facility] ([place]) Comment on above: Performed By: #### B MP, GFR, ADIFF, CBC, ANEU, CK ####[address] [address] Lymphocytes/100 WBC (Bld) 18.4 % Low 20.0-40.0 [facility] ([place]) Comment on above: Performed By: #### B MP, GFR, ADIFF, CBC, ANEU, CK ####[address] [address] Monocyte, Absolute 1.2 10 3/mcL Normal 0.1-1.4 [facility] ([place]) Comment on above: Performed By: #### B MP, GFR, ADIFF, CBC, ANEU, CK ####[address] [address] Monocytes/100 WBC (Bld) 11.5 % Normal 2.0-13.0 [facility] ([place]) Comment on above: Performed By: #### B MP, GFR, ADIFF, CBC, ANEU, CK ####[address] [address] Neutrophils/100 WBC (Bld) 67.4 % Normal 50.0-75.0 [facility] ([place]) Comment on above: Performed By: #### B MP, GFR, ADIFF, CBC, ANEU, CK ####[place] [address] .GFRon 06-18-2024 GFR 30 ml/min/1.73sqm Normal [facility] ([place]) Comment on above: Result Comment: GFR Population mean for , Non- Americans Ages 20-29 = 116 mL/min/1.73 sq.m. Ages 30-39 = 107 mL/min/1.73 sq.m. Ages 40-49 = 99 mL/min/1.73 sq.m. Ages 50-59 = 93 mL/min/1.73 sq.m. Ages 60-69 = 85 mL/min/1.73 sq.m. Ages 70+ = 75 mL/min/1.73 sq.m.Chronic Kidney Disease: Less than 60 mL/min/1.73 square metersEnd Stage Renal Disease: Less than 15 mL/min/1.73 square meters Performed By: #### B MP, GFR, ADIFF, CBC, ANEU, CK ####[place] [address] GFR Non- 25 ml/min/1.73sqm Normal [facility] ([place]) Comment on above: Result Comment: GFR Population mean for , Non- Americans Ages 20-29 = 116 mL/min/1.73 sq.m. Ages 30-39 = 107 mL/min/1.73 sq.m. Ages 40-49 = 99 mL/min/1.73 sq.m. Ages 50-59 = 93 mL/min/1.73 sq.m. Ages 60-69 = 85 mL/min/1.73 sq.m. Ages 70+ = 75 mL/min/1.73 sq.m.Chronic Kidney Disease: Less than 60 mL/min/1.73 square metersEnd Stage Renal Disease: Less than 15 mL/min/1.73 square meters Performed By: #### B MP, GFR, ADIFF, CBC, ANEU, CK ####[place] [address] .NEUABSon 06-18-2024 Neutrophil, Absolute 6.7 10 3/mcL Normal 2.3-8.1 [facility] ([place] Comment on above: Performed By: #### B MP, GFR, ADIFF, CBC, ANEU, CK ####[address] [address] BMPon 06-18-2024 BUN/Creatinine Ratio 19.6 ratio Normal 10.0-22.0 [facility] ([place]) Comment on above: Performed By: #### B MP, GFR, ADIFF, CBC, ANEU, CK ####[place] [address] Calcium [Mass/Vol] 7.9 mg/dL Low 8.7-10.4 [facility] ([place] Comment on above: Performed By: #### B MP, GFR, ADIFF, CBC, ANEU, CK ####[place] [address] Chloride [Moles/Vol] 105 mmol/L Normal 98-110 [facility] ([place]) Comment on above: Performed By: #### B MP, GFR, ADIFF, CBC, ANEU, CK ####[place] [address] CO2 [Moles/Vol] 23 mmol/L Normal 22-32 [facility] ([place] Comment on above: Performed By: #### B MP, GFR, ADIFF, CBC, ANEU, CK ####[place] [address] Creatinine [Mass/Vol] 2.75 mg/dL High 0.60-1.40 [facility] ([place]) Comment on above: Performed By: #### B MP, GFR, ADIFF, CBC, ANEU, CK ####[place] [address] Electrolyte Balance 5.0 mEq/L Normal 4.0-15.0 [facility] ([place]) Comment on above: Performed By: #### B MP, GFR, ADIFF, CBC, ANEU, CK ####[place] [address] Glucose [Mass/Vol] 103 mg/dL Normal 70-110 [facility] ([place] Comment on above: Performed By: #### B MP, GFR, ADIFF, CBC, ANEU, CK ####[place] [address] Potassium [Moles/Vol] 4.3 mmol/L Normal 3.5-5.0 [facility] ([place] Comment on above: Performed By: #### B MP, GFR, ADIFF, CBC, ANEU, CK ####[place] [address] Sodium [Moles/Vol] 133 mmol/L Low 136-145 [facility] ([place] Comment on above: Performed By: #### B MP, GFR, ADIFF, CBC, ANEU, CK ####[place] [address] Urea nitrogen [Mass/Vol] 54.0 mg/dL High 8.0-22.0 [facility] ([place]) Comment on above: Performed By: #### B MP, GFR, ADIFF, CBC, ANEU, CK ####[place] [address] CBCon 06-18-2024 Erythrocyte distribution width (RBC) [Ratio] 18.4 % High 11.5-15.5 [facility] ([place]) Comment on above: Performed By: #### B MP, GFR, ADIFF, CBC, ANEU, CK ####[place] [address] Hematocrit (Bld) [Volume fraction] 22.7 % Low 40.0-52.0 [facility] ([place]) Comment on above: Performed By: #### B MP, GFR, ADIFF, CBC, ANEU, CK ####[place] [address] Hgb 7.7 G/dL Low 13.0-17.5 [facility] ([place]) Comment on above: Performed By: #### B MP, GFR, ADIFF, CBC, ANEU, CK ####[place] [address] MCH (RBC) [Entitic mass] 27.4 pg Normal 27.0-33.0 [facility] ([place]) Comment on above: Performed By: #### B MP, GFR, ADIFF, CBC, ANEU, CK ####[place] [address] MCHC 33.7 G/dL Normal 32.0-36.0 [facility] ([place]) Comment on above: Performed By: #### B MP, GFR, ADIFF, CBC, ANEU, CK ####[place] [address] MCV (RBC) [Entitic vol] 81.4 fL Normal 81.0-100.0 [facility] ([place]) Comment on above: Performed By: #### B MP, GFR, ADIFF, CBC, ANEU, CK ####[place] [address] Platelet 433 10 3/mcL Normal 150-450 [facility] ([place]) Comment on above: Performed By: #### B MP, GFR, ADIFF, CBC, ANEU, CK ####[place] [address] Platelet mean volume (Bld) [Entitic vol] 7.2 fL Normal 6.4-10.5 [facility] ([place]) Comment on above: Performed By: #### B MP, GFR, ADIFF, CBC, ANEU, CK ####[place] [address] RBC 2.79 10 6/mcL Low 4.50-6.00 [facility] ([place]) Comment on above: Performed By: #### B MP, GFR, ADIFF, CBC, ANEU, CK ####[place] [address] WBC 10.0 10 3/mcL Normal 4.5-10.8 [facility] ([place]) Comment on above: Performed By: #### B MP, GFR, ADIFF, CBC, ANEU, CK ####[place] [address] CKon 06-18-2024 CK [Catalytic activity/Vol] 16 U/L Normal 7-185 [facility] ([place]) Comment on above: Performed By: #### B MP, GFR, ADIFF, CBC, ANEU, CK ####[place] [address] CRPon 06-18-2024 C-Reactive Protein 6.4 mg/dL High 0.0-1.0 [facility] ([place]) Comment on above: Result Comment: No te - New Reference Range in effect 20 Performed By: #### C RP, ESR ####[place] [address] ESRon 06-18-2024 Erythrocyte Sed Rate 54 mm/hr High 0-15 [facility] ([place]) Comment on above: Performed By: #### C RP, ESR ####[place] [address] LABORATORYOrdered By: SYSTEM SYSTEM on 06-18-2024 CK [Catalytic activity/Vol] 16 U/L Normal 7 - 185 U/L AH ADM SS CRP [Mass/Vol] 6.4 mg/dL High 0.0 - 1.0 mg/dL AH ADM SS Comment on above: Interpretive Data: * *Note - New Reference Range in effect 20 LABORATORYOrdered By: Roosevelt Peterson on 06-18-2024 ESR 15 minute reading (Bld) [Velocity] 54 mm/hr High 0 - 15 mm/hr AH Auto Heme SS No Panel Informationon 06-18 Microscopic examination of blood, culture Blood Culture: No Growth at [address] [facility] Work Phone: .Auto Diffon 06-06-2024 Basophil, Absolute 0.0 10 3/mcL Normal 0.0-0.2 [facility] ([place]) Comment on above: Performed By: #### M ORPH, ADIFF, GFR, MDW, BMP, ANEU, CBC ###[address] [place], [place] [address] Basophils/100 WBC (Bld) 0.3 % Normal 0.0-2.5 [facility] ([place]) Comment on above: Performed By: #### M ORPH, ADIFF, GFR, MDW, BMP, ANEU, CBC ####[place] [address] [place], [place] [address] Eosinophil, Absolute 0.3 10 3/mcL Normal 0.0-0.4 [facility] ([place]) Comment on above: Performed By: #### M ORPH, ADIFF, GFR, MDW, BMP, ANEU, CBC ####[place] [address] [place], [place] [address] Eosinophils/100 WBC (Bld) 2.1 % Normal 0.0-7.0 [facility] ([place]) Comment on above: Performed By: #### M ORPH, ADIFF, GFR, MDW, BMP, ANEU, CBC ####[place] [address] [place], [place] [address] Lymphocyte, Absolute 2.9 10 3/mcL Normal 0.8-3.9 [facility] ([place]) Comment on above: Performed By: #### M ORPH, ADIFF, GFR, MDW, BMP, ANEU, CBC ####[place] [address] [place], [place] [address] Lymphocytes/100 WBC (Bld) 17.7 % Normal 10.0-50.0 [facility] ([place]) Comment on above: Performed By: #### M ORPH, ADIFF, GFR, MDW, BMP, ANEU, CBC ####[place] [address] [place], [place] [address] Monocyte, Absolute 1.6 10 3/mcL High 0.2-1.0 [facility] ([place] Comment on above: Performed By: #### M ORPH, ADIFF, GFR, MDW, BMP, ANEU, CBC ####[place] [address] [place], [place] [address] Monocytes/100 WBC (Bld) 9.5 % Normal 1.7-13.0 [facility] ([place]) Comment on above: Performed By: #### M ORPH, ADIFF, GFR, MDW, BMP, ANEU, CBC ####[place] [address] [place], [place] [address] Neutrophils/100 WBC (Bld) 70.1 % Normal 37.0-80.0 [facility] ([place]) Comment on above: Performed By: #### M ORPH, ADIFF, GFR, MDW, BMP, ANEU, CBC ####[place] [address] [place], [place] [address] .GFRon 06-06-2024 GFR 23 ml/min/1.73sqm Normal [facility] ([place]) Comment on above: Result Comment: GFR Population mean for , Non- Americans Ages 20-29 = 116 mL/min/1.73 sq.m. Ages 30-39 = 107 mL/min/1.73 sq.m. Ages 40-49 = 99 mL/min/1.73 sq.m. Ages 50-59 = 93 mL/min/1.73 sq.m. Ages 60-69 = 85 mL/min/1.73 sq.m. Ages 70+ = 75 mL/min/1.73 sq.m.Chronic Kidney Disease: Less than 60 mL/min/1.73 square metersEnd Stage Renal Disease: Less than 15 mL/min/1.73 square meters Performed By: #### M ORPH, ADIFF, GFR, MDW, BMP, ANEU, CBC ####[place] [address] [place], [place] [address] GFR Non- 19 ml/min/1.73sqm Normal [facility] ([place]) Comment on above: Result Comment: GFR Population mean for , Non- Americans Ages 20-29 = 116 mL/min/1.73 sq.m. Ages 30-39 = 107 mL/min/1.73 sq.m. Ages 40-49 = 99 mL/min/1.73 sq.m. Ages 50-59 = 93 mL/min/1.73 sq.m. Ages 60-69 = 85 mL/min/1.73 sq.m. Ages 70+ = 75 mL/min/1.73 sq.m.Chronic Kidney Disease: Less than 60 mL/min/1.73 square metersEnd Stage Renal Disease: Less than 15 mL/min/1.73 square meters Performed By: #### M ORPH, ADIFF, GFR, MDW, BMP, ANEU, CBC ####[place] [address] [place], [place] [address] .MDWon 06-06-2024 Monocyte Distribution Width Not tested Normal 0.00-20.00 [facility] ([place]) Comment on above: Result Comment: MDW testing unable to be performed on [id number] instrumentation. Performed By: #### M ORPH, ADIFF, GFR, MDW, BMP, ANEU, CBC ####[place] [address] [place], [place] [address] .Morphon 06-06-2024 Platelet Estimate Slt Increased Normal [facility] ([place]) Comment on above: Performed By: #### M ORPH, ADIFF, GFR, MDW, BMP, ANEU, CBC ####[place] [address] [place] [address] .NEUABSon 06-06-2024 Neutrophil, Absolute 11.8 10 3/mcL High 2.9-6.2 [facility] ([place]) Comment on above: Performed By: #### M ORPH, ADIFF, GFR, MDW, BMP, ANEU, CBC ####[place] [address] [place], [place] [address] BMPon 06-06-2024 BUN/Creatinine Ratio 25 ratio Normal 7-27 [facility] ([place]) Comment on above: Performed By: #### M ORPH, ADIFF, GFR, MDW, BMP, ANEU, CBC ####[place] [address] [place], [place] [address] Calcium [Mass/Vol] 8.4 mg/dL Normal 8.4-10.2 [facility] ([place] Comment on above: Performed By: #### M ORPH, ADIFF, GFR, MDW, BMP, ANEU, CBC ####[place] [address] [place], [place] [address] Chloride [Moles/Vol] 96 mmol/L Low 98-107 [facility] ([place]) Comment on above: Performed By: #### M ORPH, ADIFF, GFR, MDW, BMP, ANEU, CBC ####[place] [address] [place], [place] [address] CO2 [Moles/Vol] 27 mmol/L Normal 22-29 [facility] ([place]) Comment on above: Performed By: #### M ORPH, ADIFF, GFR, MDW, BMP, ANEU, CBC ####[place] [address] [place], [place] [address] Creatinine [Mass/Vol] 3.49 mg/dL High 0.70-1.30 [facility] ([place]) Comment on above: Performed By: #### M ORPH, ADIFF, GFR, MDW, BMP, ANEU, CBC ####[place] [address] [place], [place] [address] Electrolyte Balance 6.0 mEq/L Normal 4.0-15.0 [facility] ([place] Comment on above: Performed By: #### M ORPH, ADIFF, GFR, MDW, BMP, ANEU, CBC ####[place] [address] [place], [place] [address] Glucose [Mass/Vol] 190 mg/dL High 70-105 [facility] ([place] Comment on above: Performed By: #### M ORPH, ADIFF, GFR, MDW, BMP, ANEU, CBC ####[place] [address] [place], [place] [address] Potassium [Moles/Vol] 4.6 mmol/L Normal 3.5-5.1 [facility] ([place] Comment on above: Performed By: #### M ORPH, ADIFF, GFR, MDW, BMP, ANEU, CBC ####[place] [address] [place], [place] [address] Sodium [Moles/Vol] 129 mmol/L Low 136-145 [facility] ([place] Comment on above: Performed By: #### M ORPH, ADIFF, GFR, MDW, BMP, ANEU, CBC ####[place] [address] [place], [place] [address] Urea nitrogen [Mass/Vol] 86 mg/dL High 7-18 [facility] ([place]) Comment on above: Performed By: #### M ORPH, ADIFF, GFR, MDW, BMP, ANEU, CBC ####[place] [address] [place], [place] [address] CBCon 06-06-2024 Erythrocyte distribution width (RBC) [Ratio] 18.1 % High 11.5-14.5 [facility] ([place]) Comment on above: Performed By: #### M ORPH, ADIFF, GFR, MDW, BMP, ANEU, CBC ####[place] [address] [place], [place] [address] Hematocrit (Bld) [Volume fraction] 25.4 % Low 42.0-52.0 [facility] ([place]) Comment on above: Performed By: #### M ORPH, ADIFF, GFR, MDW, BMP, ANEU, CBC ####[place] [address] [place], [place] [address] Hgb 8.2 G/dL Low 14.0-18.0 [facility] ([place]) Comment on above: Performed By: #### M ORPH, ADIFF, GFR, MDW, BMP, ANEU, CBC ####[place] [address] [place], [place] [address] MCH (RBC) [Entitic mass] 25.8 pg Low 27.0-31.2 [facility] ([place]) Comment on above: Performed By: #### M ORPH, ADIFF, GFR, MDW, BMP, ANEU, CBC ####[place] [address] [place], [place] [address] MCHC 32.3 G/dL Normal 31.8-35.4 [facility] ([place]) Comment on above: Performed By: #### M ORPH, ADIFF, GFR, MDW, BMP, ANEU, CBC ####[place] [address] [place], [place] [address] MCV (RBC) [Entitic vol] 79.8 fL Low 80.0-94.0 [facility] ([place]) Comment on above: Performed By: #### M ORPH, ADIFF, GFR, MDW, BMP, ANEU, CBC ####[place] [address] [place], [place] [address] Platelet 479 10 3/mcL High 130-400 [facility] ([place]) Comment on above: Performed By: #### M ORPH, ADIFF, GFR, MDW, BMP, ANEU, CBC ####[place] [address] [place], [place] [address] Platelet mean volume (Bld) [Entitic vol] 8.1 fL Normal 7.4-10.4 [facility] ([place]) Comment on above: Performed By: #### M ORPH, ADIFF, GFR, MDW, BMP, ANEU, CBC ####[place] [address] [place], [place] [address] RBC 3.18 10 6/mcL Low 4.04-6.13 [facility] ([place]) Comment on above: Performed By: #### M ORPH, ADIFF, GFR, MDW, BMP, ANEU, CBC ####[place] [address] [place], [place] [address] WBC 16.8 10 3/mcL High 4.6-10.8 [facility] ([place]) Comment on above: Performed By: #### M ORPH, ADIFF, GFR, MDW, BMP, ANEU, CBC ####[place] [address] [place], [place] [address] LABORATORYOrdered By: SYSTEM SYSTEM on 06-06-2024 Lactate [Moles/Vol] 1.4 mmol/L Normal 0.4 - 2. 0 mmol/L AO ADM SS Basophil, Absolute 0.0 103/mcL Normal 0.0 - 0.2 10^3/mcL AO Workflow SS Basophils/100 WBC (Bld) 0.3 % Normal 0.0 - 2.5 % AO Workflow SS Calcium [Mass/Vol] 8.4 mg/dL Normal 8.4 - 10. 2 mg/dL AO ADM SS Chloride [Moles/Vol] 96 mmol/L Low 98 - 10 7 mmol/L AO ADM SS CO2 [Moles/Vol] 27 mmol/L Normal 22 - 29 mmol/L AO ADM SS Creatinine [Mass/Vol] 3.49 mg/dL High 0.70 - 1.30 mg/dL AO ADM SS Electrolyte Balance 6.0 mEq/L Normal 4.0 - 15 .0 mEq/L AO ADM SS Eosinophil, Absolute 0.3 103/mcL Normal 0.0 - 0 .4 10^3/mcL AO Workflow SS Eosinophils/100 WBC (Bld) 2.1 % Normal 0.0 - 7.0 % AO Workflow SS Erythrocyte distribution width (RBC) [Ratio] 18.1 % High 11.5 - 14.5 % AO Workflow SS GFR/1.73 sq M.predicted among blacks MDRD (S/P/Bld) [Vol rate/Area] 23 ml/min/1.73sqm Invalid Interpretation Code AO Chemistry S Comment on above: Interpretive Data: GFR Population mean for , Non- Americans Ages 20-29 = 116 mL/min/1.73 sq.m. Ages 30-39 = 107 mL/min/1.73 sq.m. Ages 40-49 = 99 mL/min/1.73 sq.m. Ages 50-59 = 93 mL/min/1.73 sq.m. Ages 60-69 = 85 mL/min/1.73 sq.m. Ages 70+ = 75 mL/min/1.73 sq.m. Chronic Kidney Disease: Less than 60 mL/min/1.73 square meters End Stage Renal Disease: Less than 15 mL/min/1.73 square meters GFR/1.73 sq M.predicted among non-blacks MDRD (S/P/Bld) [Vol rate/Area] 19 ml/min/1.73sqm Invalid Interpretation Code AO Chemistry S Comment on above: Interpretive Data: GFR Population mean for , Non- Americans Ages 20-29 = 116 mL/min/1.73 sq.m. Ages 30-39 = 107 mL/min/1.73 sq.m. Ages 40-49 = 99 mL/min/1.73 sq.m. Ages 50-59 = 93 mL/min/1.73 sq.m. Ages 60-69 = 85 mL/min/1.73 sq.m. Ages 70+ = 75 mL/min/1.73 sq.m. Chronic Kidney Disease: Less than 60 mL/min/1.73 square meters End Stage Renal Disease: Less than 15 mL/min/1.73 square meters Glucose [Mass/Vol] 190 mg/dL High 70 - 105 mg/dL AO ADM SS Hematocrit (Bld) [Volume fraction] 25.4 % Low 42.0 - 52.0 % AO Workflow SS Hemoglobin (Bld) [Mass/Vol] 8.2 G/dL Low 14.0 - 18.0 G/dL AO Workflow SS Lymphocyte, Absolute 2.9 103/mcL Normal 0.8 - 3 .9 10^3/mcL AO Workflow SS Lymphocytes/100 WBC (Bld) 17.7 % Normal 10.0 - 50.0 % AO Workflow SS MCH (RBC) [Entitic mass] 25.8 pg Low 27.0 - 31.2 pg AO Workflow SS MCHC 32.3 G/dL Normal 31.8 - 35.4 G/dL AO Workflow SS MCV (RBC) [Entitic vol] 79.8 fL Low 80.0 - 94.0 fL AO Workflow SS Monocyte, Absolute 1.6 103/mcL High 0.2 - 1.0 10^3/mcL AO Workflow SS Monocytes/100 WBC (Bld) 9.5 % Normal 1.7 - 13.0 % AO Workflow SS Neutrophil, Absolute 11.8 103/mcL High 2.9 - 6 .2 10^3/mcL AO Workflow SS Neutrophils/100 WBC (Bld) 70.1 % Normal 37.0 - 80.0 % AO Workflow SS Platelet mean volume (Bld) [Entitic vol] 8.1 fL Normal 7.4 - 10.4 fL AO Workflow SS Platelets (Bld) [#/Vol] 479 103/mcL High 130 - 400 10^3/mcL AO Workflow SS Potassium [Moles/Vol] 4.6 mmol/L Normal 3.5 - 5.1 mmol/L AO ADM SS RBC (Bld) [#/Vol] 3.18 106/mcL Low 4.04 - 6.13 10^6/mcL AO Workflow SS Sodium [Moles/Vol] 129 mmol/L Low 136 - 145 mmol/L AO ADM SS Urea nitrogen [Mass/Vol] 86 mg/dL High 7 - 18 mg/dL AO ADM SS Urea nitrogen/Creatinine [Mass ratio] 25 ratio Normal 7 - 27 ratio AO ADM SS WBC (Bld) [#/Vol] 16.8 103/mcL High 4.6 - 10.8 10^3/mcL AO Workflow SS LABORATORYOrdered By: Tori Kinsey on 06-06-2024 Monocyte distribution width Auto (Bld) [Entitic vol] Not tested 1 (06/06/24 2:02 AM) Normal 0.00 - 20.00 AO Hematology S Comment on above: Result Comment: MDW testing unable to be performed on [id number] instrumentation. Platelet Estimate Slt Increased (06/06/24 2:02 AM) Normal AO Hematology S LACon 06-06-2024 Lactic Acid Lvl 1.4 mmol/L Normal 0.4-2.0 [facility] ([place]) Comment on above: Performed By: #### L AC ####[id number] [place], [place] [address] XR PELVIS 1 OR 2 VIEWSon XR PELVIS 1 OR 2 VIEWS Normal [facility] ([place]) CFUNGBon 05-23-2024 CFUNGB Normal Pending sale to [facility]) CFUNGB Normal [facility] ([place]) .Auto Diffon 05-15-2024 Basophil, Absolute 0.0 10 3/mcL Normal 0.0-0.3 [facility] ([place]) Comment on above: Performed By: #### B MP, ADIFF, CBC, ANEU, GFR, MG ####[address] [address] Basophils/100 WBC (Bld) 0.1 % Normal 0.0-2.5 A [facility] ([place]) Comment on above: Performed By: #### B MP, ADIFF, CBC, ANEU, GFR, MG ####[address] [address] Eosinophil, Absolute 0.0 10 3/mcL Normal 0.0-0.7 [facility] ([place]) Comment on above: Performed By: #### B MP, ADIFF, CBC, ANEU, GFR, MG ####[address] [address] Eosinophils/100 WBC (Bld) 0.0 % Normal 0.0-6.0 [facility] ([place]) Comment on above: Performed By: #### B MP, ADIFF, CBC, ANEU, GFR, MG ####[address] [address] Lymphocyte, Absolute 1.1 10 3/mcL Normal 0.9-4.3 [facility] ([place]) Comment on above: Performed By: #### B MP, ADIFF, CBC, ANEU, GFR, MG ####[address] [address] Lymphocytes/100 WBC (Bld) 12.1 % Low 20.0-40.0 [facility] ([place]) Comment on above: Performed By: #### B MP, ADIFF, CBC, ANEU, GFR, MG ####[address] [address] Monocyte, Absolute 0.9 10 3/mcL Normal 0.1-1.4 [facility] ([place]) Comment on above: Performed By: #### B MP, ADIFF, CBC, ANEU, GFR, MG ####[address] [address] Monocytes/100 WBC (Bld) 9.0 % Normal 2.0-13.0 [facility] ([place]) Comment on above: Performed By: #### B MP, ADIFF, CBC, ANEU, GFR, MG ####[address] [address] Neutrophils/100 WBC (Bld) 78.8 % High 50.0-75.0 [facility] ([place]) Comment on above: Performed By: #### B MP, ADIFF, CBC, ANEU, GFR, MG ####[address] [address] .GFRon 05-15-2024 GFR 29 ml/min/1.73sqm Normal [facility] ([place]) Comment on above: Result Comment: GFR Population mean for , Non- Americans Ages 20-29 = 116 mL/min/1.73 sq.m. Ages 30-39 = 107 mL/min/1.73 sq.m. Ages 40-49 = 99 mL/min/1.73 sq.m. Ages 50-59 = 93 mL/min/1.73 sq.m. Ages 60-69 = 85 mL/min/1.73 sq.m. Ages 70+ = 75 mL/min/1.73 sq.m.Chronic Kidney Disease: Less than 60 mL/min/1.73 square metersEnd Stage Renal Disease: Less than 15 mL/min/1.73 square meters Performed By: #### B MP, ADIFF, CBC, ANEU, GFR, MG ####[address] [address] GFR Non- 24 ml/min/1.73sqm Normal [facility] ([place]) Comment on above: Result Comment: GFR Population mean for , Non- Americans Ages 20-29 = 116 mL/min/1.73 sq.m. Ages 30-39 = 107 mL/min/1.73 sq.m. Ages 40-49 = 99 mL/min/1.73 sq.m. Ages 50-59 = 93 mL/min/1.73 sq.m. Ages 60-69 = 85 mL/min/1.73 sq.m. Ages 70+ = 75 mL/min/1.73 sq.m.Chronic Kidney Disease: Less than 60 mL/min/1.73 square metersEnd Stage Renal Disease: Less than 15 mL/min/1.73 square meters Performed By: #### B MP, ADIFF, CBC, ANEU, GFR, MG ####[address] [address] .NEUABSon 05-15-2024 Neutrophil, Absolute 7.4 10 3/mcL Normal 2.3-8.1 [facility] ([place]) Comment on above: Performed By: #### B MP, ADIFF, CBC, ANEU, GFR, MG ####[address] [address] BMPon 05-15-2024 BUN/Creatinine Ratio 22.6 ratio High 10.0-22.0 [facility] ([place]) Comment on above: Performed By: #### B MP, ADIFF, CBC, ANEU, GFR, MG ####[address] [address] Calcium [Mass/Vol] 7.6 mg/dL Low 8.7-10.4 [facility] ([place]) Comment on above: Performed By: #### B MP, ADIFF, CBC, ANEU, GFR, MG ####[address] [address] Chloride [Moles/Vol] 103 mmol/L Normal 98-110 [facility] ([place]) Comment on above: Performed By: #### B MP, ADIFF, CBC, ANEU, GFR, MG ####[address] [address] CO2 [Moles/Vol] 20 mmol/L Low 22-32 [facility] ([place]) Comment on above: Performed By: #### B MP, ADIFF, CBC, ANEU, GFR, MG ####[address] [address] Creatinine [Mass/Vol] 2.88 mg/dL High 0.60-1.40 [facility] ([place]) Comment on above: Performed By: #### B MP, ADIFF, CBC, ANEU, GFR, MG ####[place] [address] Electrolyte Balance 8.0 mEq/L Normal 4.0-15.0 [facility] ([place]) Comment on above: Performed By: #### B MP, ADIFF, CBC, ANEU, GFR, MG ####[place] [address] Glucose [Mass/Vol] 279 mg/dL High 70-110 [facility] ([place] Comment on above: Performed By: #### B MP, ADIFF, CBC, ANEU, GFR, MG ####[address] [address] Potassium [Moles/Vol] 5.7 mmol/L High 3.5-5.0 [facility] ([place]) Comment on above: Performed By: #### B MP, ADIFF, CBC, ANEU, GFR, MG ####[address] [address] Sodium [Moles/Vol] 131 mmol/L Low 136-145 [facility] ([place] Comment on above: Performed By: #### B MP, ADIFF, CBC, ANEU, GFR, MG ####[address] [address] Urea nitrogen [Mass/Vol] 65.0 mg/dL High 8.0-22.0 [facility] ([place]) Comment on above: Performed By: #### B MP, ADIFF, CBC, ANEU, GFR, MG ####[place] [address] CBCon 05-15-2024 Erythrocyte distribution width (RBC) [Ratio] 19.9 % High 11.5-15.5 [facility] ([place]) Comment on above: Performed By: #### B MP, ADIFF, CBC, ANEU, GFR, MG ####[place] [address] Hematocrit (Bld) [Volume fraction] 24.5 % Low 40.0-52.0 [facility] ([place]) Comment on above: Performed By: #### B MP, ADIFF, CBC, ANEU, GFR, MG ####[place] [address] Hgb 8.1 G/dL Low 13.0-17.5 [facility] ([place]) Comment on above: Performed By: #### B MP, ADIFF, CBC, ANEU, GFR, MG ####[place] [address] MCH (RBC) [Entitic mass] 27.3 pg Normal 27.0-33.0 [facility] ([place]) Comment on above: Performed By: #### B MP, ADIFF, CBC, ANEU, GFR, MG ####[place] [address] MCHC 33.1 G/dL Normal 32.0-36.0 [facility] ([place]) Comment on above: Performed By: #### B MP, ADIFF, CBC, ANEU, GFR, MG ####[place] [address] MCV (RBC) [Entitic vol] 82.6 fL Normal 81.0-100.0 [facility] ([place]) Comment on above: Performed By: #### B MP, ADIFF, CBC, ANEU, GFR, MG ####[place] [address] Platelet 153 10 3/mcL Normal 150-450 [facility] ([place]) Comment on above: Performed By: #### B MP, ADIFF, CBC, ANEU, GFR, MG ####[place] [address] Platelet mean volume (Bld) [Entitic vol] 8.8 fL Normal 6.4-10.5 [facility] ([place]) Comment on above: Performed By: #### B MP, ADIFF, CBC, ANEU, GFR, MG ####[place] [address] RBC 2.97 10 6/mcL Low 4.50-6.00 [facility] ([place]) Comment on above: Performed By: #### B MP, ADIFF, CBC, ANEU, GFR, MG ####[place] [address] WBC 9.4 10 3/mcL Normal 4.5-10.8 [facility] ([place]) Comment on above: Performed By: #### B MP, ADIFF, CBC, ANEU, GFR, MG ####[place] [address] Rainer 05-15-2024 Potassium [Moles/Vol] 5.0 mmol/L Normal 3.5-5.0 [facility] ([place]) Comment on above: Performed By: #### K ####[place] [address] LABORATORYOrdered By: Reanna Gannon on 05-15-2024 Blood Glucose Testing Reason Routine (05/15/24 4:36 PM) [facility] Work Phone: Glucose [Mass/Vol] 163 mg/dL High 70 - 110 mg/dL [facility] Work Phone: LABORATORYOrdered By: SYSTEM SYSTEM on 05-15-2024 Potassium [Moles/Vol] 5.0 mmol/L Normal 3.5 - 5.0 mEq/L AH ADM SS Basophils (Bld) [#/Vol] 0.0 103/mcL Normal 0.0 - 0.3 10^3/mcL AH Workflow SS Basophils/100 WBC (Bld) 0.1 % Normal 0.0 - 2.5 % AH Workflow SS Calcium [Mass/Vol] 7.6 mg/dL Low 8.7 - 10. 4 mg/dL AH ADM SS Chloride [Moles/Vol] 103 mmol/L Normal 98 - 11 0 mEq/L ADM SS CO2 [Moles/Vol] 20 mmol/L Low 22 - 32 mEq/L ADM SS Creatinine [Mass/Vol] 2.88 mg/dL High 0.60 - 1.40 mg/dL ADM SS Electrolyte Balance 8.0 mEq/L Normal 4.0 - 15 .0 mEq/L ADM SS Eosinophils (Bld) [#/Vol] 0.0 103/mcL Normal 0.0 - 0.7 10^3/mcL Workflow SS Eosinophils/100 WBC (Bld) 0.0 % Normal 0.0 - 6.0 % Workflow SS Erythrocyte distribution width (RBC) [Ratio] 19.9 % High 11.5 - 15.5 % Workflow SS GFR/1.73 sq M.predicted among blacks MDRD (S/P/Bld) [Vol rate/Area] 29 ml/min/1.73sqm Invalid Interpretation Code ADM SS Comment on above: Interpretive Data: GFR Population mean for , Non- Americans Ages 20-29 = 116 mL/min/1.73 sq.m. Ages 30-39 = 107 mL/min/1.73 sq.m. Ages 40-49 = 99 mL/min/1.73 sq.m. Ages 50-59 = 93 mL/min/1.73 sq.m. Ages 60-69 = 85 mL/min/1.73 sq.m. Ages 70+ = 75 mL/min/1.73 sq.m. Chronic Kidney Disease: Less than 60 mL/min/1.73 square meters End Stage Renal Disease: Less than 15 mL/min/1.73 square meters GFR/1.73 sq M.predicted among non-blacks MDRD (S/P/Bld) [Vol rate/Area] 24 ml/min/1.73sqm Invalid Interpretation Code ADM SS Comment on above: Interpretive Data: GFR Population mean for , Non- Americans Ages 20-29 = 116 mL/min/1.73 sq.m. Ages 30-39 = 107 mL/min/1.73 sq.m. Ages 40-49 = 99 mL/min/1.73 sq.m. Ages 50-59 = 93 mL/min/1.73 sq.m. Ages 60-69 = 85 mL/min/1.73 sq.m. Ages 70+ = 75 mL/min/1.73 sq.m. Chronic Kidney Disease: Less than 60 mL/min/1.73 square meters End Stage Renal Disease: Less than 15 mL/min/1.73 square meters Glucose [Mass/Vol] 279 mg/dL High 70 - 110 mg/dL AH ADM SS Hematocrit (Bld) [Volume fraction] 24.5 % Low 40.0 - 52.0 % AH Workflow SS Hemoglobin (Bld) [Mass/Vol] 8.1 G/dL Low 13.0 - 17.5 G/dL AH Workflow SS Lymphocytes (Bld) [#/Vol] 1.1 103/mcL Normal 0.9 - 4.3 10^3/mcL AH Workflow SS Lymphocytes/100 WBC (Bld) 12.1 % Low 20.0 - 40.0 % AH Workflow SS Magnesium [Mass/Vol] 1.8 mg/dL Normal 1.6 - 2 .4 mg/dL ADM SS MCH (RBC) [Entitic mass] 27.3 pg Normal 27.0 - 33.0 pg AH Workflow SS MCHC 33.1 G/dL Normal 32.0 - 36.0 G/dL AH Workflow SS MCV (RBC) [Entitic vol] 82.6 fL Normal 81.0 - 100.0 fL AH Workflow SS Monocytes (Bld) [#/Vol] 0.9 103/mcL Normal 0.1 - 1.4 10^3/mcL AH Workflow SS Monocytes/100 WBC (Bld) 9.0 % Normal 2.0 - 13.0 % AH Workflow SS Neutrophils (Bld) [#/Vol] 7.4 103/mcL Normal 2.3 - 8.1 10^3/mcL AH Workflow SS Neutrophils/100 WBC (Bld) 78.8 % High 50.0 - 75.0 % AH Workflow SS Platelet mean volume (Bld) [Entitic vol] 8.8 fL Normal 6.4 - 10.5 fL AH Workflow SS Platelets (Bld) [#/Vol] 153 103/mcL Normal 150 - 450 10^3/mcL AH Workflow SS Potassium [Moles/Vol] 5.7 mmol/L High 3.5 - 5.0 mEq/L AH ADM SS RBC (Bld) [#/Vol] 2.97 106/mcL Low 4.50 - 6.00 10^6/mcL AH Workflow SS Sodium [Moles/Vol] 131 mmol/L Low 136 - 145 mEq/L AH ADM SS Urea nitrogen [Mass/Vol] 65.0 mg/dL High 8.0 - 22.0 mg/dL ADM SS Urea nitrogen/Creatinine [Mass ratio] 22.6 ratio High 10.0 - 22.0 ratio AH ADM SS WBC (Bld) [#/Vol] 9.4 103/mcL Normal 4.5 - 10.8 10^3/mcL Workflow SS LABORATORYOrdered By: Stacy Heller on 05-15-2024 Blood Glucose Testing Reason Routine (05/15/24 11:47 AM) [facility] Work Phone: Glucose [Mass/Vol] 189 mg/dL High 70 - 110 mg/dL [facility] Work Phone: LABORATORYOrdered By: Carina Carcamo on 05-15-2024 Blood Glucose Testing Reason Routine (05/15/24 8:14 AM) [facility] Work Phone: Glucose [Mass/Vol] 252 mg/dL High 70 - 110 mg/dL [facility] Work Phone: MGon 05-15-2024 Magnesium [Mass/Vol] 1.8 mg/dL Normal 1.6-2.4 [facility] ([place]) Comment on above: Performed By: #### B MP, ADIFF, CBC, ANEU, GFR, MG ####[address] [address] .Auto Diffon 05-14-2024 Basophil, Absolute 0.0 10 3/mcL Normal 0.0-0.3 [facility] ([place]) Comment on above: Performed By: #### A DIFF, GFR, CBC, MG, BMP, ANEU ####[address] [address] Basophils/100 WBC (Bld) 0.6 % Normal 0.0-2.5 [facility] ([place]) Comment on above: Performed By: #### A DIFF, GFR, CBC, MG, BMP, ANEU ####[address] [address] Eosinophil, Absolute 0.3 10 3/mcL Normal 0.0-0.7 [facility] ([place]) Comment on above: Performed By: #### A DIFF, GFR, CBC, MG, BMP, ANEU ####[address] [address] Eosinophils/100 WBC (Bld) 3.8 % Normal 0.0-6.0 [facility] ([place]) Comment on above: Performed By: #### A DIFF, GFR, CBC, MG, BMP, ANEU ####[address] [address] Lymphocyte, Absolute 1.5 10 3/mcL Normal 0.9-4.3 [facility] ([place]) Comment on above: Performed By: #### A DIFF, GFR, CBC, MG, BMP, ANEU ####[address] [address] Lymphocytes/100 WBC (Bld) 21.4 % Normal 20.0-40.0 [facility] ([place]) Comment on above: Performed By: #### A DIFF, GFR, CBC, MG, BMP, ANEU ####[address] [address] Monocyte, Absolute 1.0 10 3/mcL Normal 0.1-1.4 [facility] ([place]) Comment on above: Performed By: #### A DIFF, GFR, CBC, MG, BMP, ANEU ####[address] [address] Monocytes/100 WBC (Bld) 14.4 % High 2.0-13.0 [facility] ([place]) Comment on above: Performed By: #### A DIFF, GFR, CBC, MG, BMP, ANEU ####[address] [address] Neutrophils/100 WBC (Bld) 59.8 % Normal 50.0-75.0 [facility] ([place]) Comment on above: Performed By: #### A DIFF, GFR, CBC, MG, BMP, ANEU ####[address] [address] .GFRon 05-14-2024 GFR Non- 20 ml/min/1.73sqm Normal [facility] ([place]) Comment on above: Result Comment: GFR Population mean for , Non- Americans Ages 20-29 = 116 mL/min/1.73 sq.m. Ages 30-39 = 107 mL/min/1.73 sq.m. Ages 40-49 = 99 mL/min/1.73 sq.m. Ages 50-59 = 93 mL/min/1.73 sq.m. Ages 60-69 = 85 mL/min/1.73 sq.m. Ages 70+ = 75 mL/min/1.73 sq.m.Chronic Kidney Disease: Less than 60 mL/min/1.73 square metersEnd Stage Renal Disease: Less than 15 mL/min/1.73 square meters Performed By: #### A DIFF, GFR, CBC, MG, BMP, ANEU ####[place] [address] GFR 25 ml/min/1.73sqm Normal [facility] ([place]) Comment on above: Result Comment: GFR Population mean for , Non- Americans Ages 20-29 = 116 mL/min/1.73 sq.m. Ages 30-39 = 107 mL/min/1.73 sq.m. Ages 40-49 = 99 mL/min/1.73 sq.m. Ages 50-59 = 93 mL/min/1.73 sq.m. Ages 60-69 = 85 mL/min/1.73 sq.m. Ages 70+ = 75 mL/min/1.73 sq.m.Chronic Kidney Disease: Less than 60 mL/min/1.73 square metersEnd Stage Renal Disease: Less than 15 mL/min/1.73 square meters Performed By: #### A DIFF, GFR, CBC, MG, BMP, ANEU ####[place] [address] .NEUABSon 05-14-2024 Neutrophil, Absolute 4.1 10 3/mcL Normal 2.3-8.1 [facility] ([place]) Comment on above: Performed By: #### A DIFF, GFR, CBC, MG, BMP, ANEU ####[address] [address] BMPon 05-14-2024 BUN/Creatinine Ratio 18.0 ratio Normal 10.0-22.0 [facility] ([place]) Comment on above: Performed By: #### A DIFF, GFR, CBC, MG, BMP, ANEU ####[address] [address] Calcium [Mass/Vol] 8.0 mg/dL Low 8.7-10.4 [facility] ([place]) Comment on above: Performed By: #### A DIFF, GFR, CBC, MG, BMP, ANEU ####[place] [address] Chloride [Moles/Vol] 101 mmol/L Normal 98-110 [facility] ([place]) Comment on above: Performed By: #### A DIFF, GFR, CBC, MG, BMP, ANEU ####[place] [address] CO2 [Moles/Vol] 23 mmol/L Normal 22-32 [facility] ([place]) Comment on above: Performed By: #### A DIFF, GFR, CBC, MG, BMP, ANEU ####[place] [address] Creatinine [Mass/Vol] 3.28 mg/dL High 0.60-1.40 [facility] ([place]) Comment on above: Performed By: #### A DIFF, GFR, CBC, MG, BMP, ANEU ####[place] [address] Electrolyte Balance 5.0 mEq/L Normal 4.0-15.0 [facility] ([place]) Comment on above: Performed By: #### A DIFF, GFR, CBC, MG, BMP, ANEU ####[place] [address] Glucose [Mass/Vol] 160 mg/dL High 70-110 [facility] ([place] Comment on above: Performed By: #### A DIFF, GFR, CBC, MG, BMP, ANEU ####[place] [address] Potassium [Moles/Vol] 5.1 mmol/L High 3.5-5.0 [facility] ([place]) Comment on above: Performed By: #### A DIFF, GFR, CBC, MG, BMP, ANEU ####[place] [address] Sodium [Moles/Vol] 129 mmol/L Low 136-145 [facility] ([place] Comment on above: Performed By: #### A DIFF, GFR, CBC, MG, BMP, ANEU ####[place] [address] Urea nitrogen [Mass/Vol] 59.0 mg/dL High 8.0-22.0 [facility] ([place]) Comment on above: Performed By: #### A DIFF, GFR, CBC, MG, BMP, ANEU ####[place] [address] CBCon 05-14-2024 Erythrocyte distribution width (RBC) [Ratio] 20.0 % High 11.5-15.5 [facility] ([place] Comment on above: Performed By: #### A DIFF, GFR, CBC, MG, BMP, ANEU ####[place] [address] Hematocrit (Bld) [Volume fraction] 24.8 % Low 40.0-52.0 [facility] ([place]) Comment on above: Performed By: #### A DIFF, GFR, CBC, MG, BMP, ANEU ####[place] [address] Hgb 8.3 G/dL Low 13.0-17.5 [facility] ([place]) Comment on above: Performed By: #### A DIFF, GFR, CBC, MG, BMP, ANEU ####[place] [address] MCH (RBC) [Entitic mass] 27.4 pg Normal 27.0-33.0 [facility] ([place]) Comment on above: Performed By: #### A DIFF, GFR, CBC, MG, BMP, ANEU ####[place] [address] MCHC 33.4 G/dL Normal 32.0-36.0 [facility] ([place]) Comment on above: Performed By: #### A DIFF, GFR, CBC, MG, BMP, ANEU ####[place] [address] MCV (RBC) [Entitic vol] 82.1 fL Normal 81.0-100.0 [facility] ([place]) Comment on above: Performed By: #### A DIFF, GFR, CBC, MG, BMP, ANEU ####[place] [address] Platelet 121 10 3/mcL Low 150-450 [facility] ([place] Comment on above: Performed By: #### A DIFF, GFR, CBC, MG, BMP, ANEU ####[place] [address] Platelet mean volume (Bld) [Entitic vol] 8.6 fL Normal 6.4-10.5 [facility] ([place]) Comment on above: Performed By: #### A DIFF, GFR, CBC, MG, BMP, ANEU ####[place] [address] RBC 3.02 10 6/mcL Low 4.50-6.00 [facility] ([place]) Comment on above: Performed By: #### A DIFF, GFR, CBC, MG, BMP, ANEU ####[place] [address] WBC 6.8 10 3/mcL Normal 4.5-10.8 [facility] ([place]) Comment on above: Performed By: #### A DIFF, GFR, CBC, MG, BMP, ANEU ####[place] [address] LABORATORYOrdered By: SYSTEM SYSTEM on 05-14-2024 Basophils (Bld) [#/Vol] 0.0 103/mcL Normal 0.0 - 0.3 10^3/mcL AH Workflow SS Basophils/100 WBC (Bld) 0.6 % Normal 0.0 - 2.5 % AH Workflow SS Calcium [Mass/Vol] 8.0 mg/dL Low 8.7 - 10. 4 mg/dL AH ADM SS Chloride [Moles/Vol] 101 mmol/L Normal 98 - 11 0 mEq/L ADM SS CO2 [Moles/Vol] 23 mmol/L Normal 22 - 32 mEq/L ADM SS Creatinine [Mass/Vol] 3.28 mg/dL High 0.60 - 1.40 mg/dL ADM SS Electrolyte Balance 5.0 mEq/L Normal 4.0 - 15 .0 mEq/L ADM SS Eosinophils (Bld) [#/Vol] 0.3 103/mcL Normal 0.0 - 0.7 10^3/mcL Workflow SS Eosinophils/100 WBC (Bld) 3.8 % Normal 0.0 - 6.0 % Workflow SS Erythrocyte distribution width (RBC) [Ratio] 20.0 % High 11.5 - 15.5 % Workflow SS GFR/1.73 sq M.predicted among blacks MDRD (S/P/Bld) [Vol rate/Area] 25 ml/min/1.73sqm Invalid Interpretation Code AH ADM SS Comment on above: Interpretive Data: GFR Population mean for , Non- Americans Ages 20-29 = 116 mL/min/1.73 sq.m. Ages 30-39 = 107 mL/min/1.73 sq.m. Ages 40-49 = 99 mL/min/1.73 sq.m. Ages 50-59 = 93 mL/min/1.73 sq.m. Ages 60-69 = 85 mL/min/1.73 sq.m. Ages 70+ = 75 mL/min/1.73 sq.m. Chronic Kidney Disease: Less than 60 mL/min/1.73 square meters End Stage Renal Disease: Less than 15 mL/min/1.73 square meters GFR/1.73 sq M.predicted among non-blacks MDRD (S/P/Bld) [Vol rate/Area] 20 ml/min/1.73sqm Invalid Interpretation Code ADM SS Comment on above: Interpretive Data: GFR Population mean for , Non- Americans Ages 20-29 = 116 mL/min/1.73 sq.m. Ages 30-39 = 107 mL/min/1.73 sq.m. Ages 40-49 = 99 mL/min/1.73 sq.m. Ages 50-59 = 93 mL/min/1.73 sq.m. Ages 60-69 = 85 mL/min/1.73 sq.m. Ages 70+ = 75 mL/min/1.73 sq.m. Chronic Kidney Disease: Less than 60 mL/min/1.73 square meters End Stage Renal Disease: Less than 15 mL/min/1.73 square meters Glucose [Mass/Vol] 160 mg/dL High 70 - 110 mg/dL ADM SS Hematocrit (Bld) [Volume fraction] 24.8 % Low 40.0 - 52.0 % AH Workflow SS Hemoglobin (Bld) [Mass/Vol] 8.3 G/dL Low 13.0 - 17.5 G/dL AH Workflow SS Lymphocytes (Bld) [#/Vol] 1.5 103/mcL Normal 0.9 - 4.3 10^3/mcL AH Workflow SS Lymphocytes/100 WBC (Bld) 21.4 % Normal 20.0 - 40.0 % AH Workflow SS Magnesium [Mass/Vol] 1.9 mg/dL Normal 1.6 - 2 .4 mg/dL ADM SS MCH (RBC) [Entitic mass] 27.4 pg Normal 27.0 - 33.0 pg AH Workflow SS MCHC 33.4 G/dL Normal 32.0 - 36.0 G/dL Workflow SS MCV (RBC) [Entitic vol] 82.1 fL Normal 81.0 - 100.0 fL Workflow SS Monocytes (Bld) [#/Vol] 1.0 103/mcL Normal 0.1 - 1.4 10^3/mcL AH Workflow SS Monocytes/100 WBC (Bld) 14.4 % High 2.0 - 13.0 % AH Workflow SS Neutrophils (Bld) [#/Vol] 4.1 103/mcL Normal 2.3 - 8.1 10^3/mcL AH Workflow SS Neutrophils/100 WBC (Bld) 59.8 % Normal 50.0 - 75.0 % Workflow SS Platelet mean volume (Bld) [Entitic vol] 8.6 fL Normal 6.4 - 10.5 fL Workflow SS Platelets (Bld) [#/Vol] 121 103/mcL Low 150 - 450 10^3/mcL AH Workflow SS Potassium [Moles/Vol] 5.1 mmol/L High 3.5 - 5.0 mEq/L ADM SS RBC (Bld) [#/Vol] 3.02 106/mcL Low 4.50 - 6.00 10^6/mcL AH Workflow SS Sodium [Moles/Vol] 129 mmol/L Low 136 - 145 mEq/L AH ADM SS Urea nitrogen [Mass/Vol] 59.0 mg/dL High 8.0 - 22.0 mg/dL AH ADM SS Urea nitrogen/Creatinine [Mass ratio] 18.0 ratio Normal 10.0 - 22.0 ratio AH ADM SS WBC (Bld) [#/Vol] 6.8 103/mcL Normal 4.5 - 10.8 10^3/mcL AH Workflow SS MGon 05-14-2024 Magnesium [Mass/Vol] 1.9 mg/dL Normal 1.6-2.4 [facility] ([place]) Comment on above: Performed By: #### A DIFF, GFR, CBC, MG, BMP, ANEU ####[address] [address] .Auto Diffon 05-13-2024 Basophil, Absolute 0.0 10 3/mcL Normal 0.0-0.3 [facility] ([place]) Comment on above: Performed By: #### C BC, GFR, MG, BMP, ADIFF, ANEU ####[address] [address] Basophils/100 WBC (Bld) 0.5 % Normal 0.0-2.5 [facility] ([place]) Comment on above: Performed By: #### C BC, GFR, MG, BMP, ADIFF, ANEU ####[address] [address] Eosinophil, Absolute 0.2 10 3/mcL Normal 0.0-0.7 [facility] ([place]) Comment on above: Performed By: #### C BC, GFR, MG, BMP, ADIFF, ANEU ####[address] [address] Eosinophils/100 WBC (Bld) 2.6 % Normal 0.0-6.0 [facility] ([place]) Comment on above: Performed By: #### C BC, GFR, MG, BMP, ADIFF, ANEU ####[address] [address] Lymphocyte, Absolute 1.3 10 3/mcL Normal 0.9-4.3 [facility] ([place]) Comment on above: Performed By: #### C BC, GFR, MG, BMP, ADIFF, ANEU ####[address] [address] Lymphocytes/100 WBC (Bld) 18.1 % Low 20.0-40.0 [facility] ([place]) Comment on above: Performed By: #### C BC, GFR, MG, BMP, ADIFF, ANEU ####[address] [address] Monocyte, Absolute 1.0 10 3/mcL Normal 0.1-1.4 [facility] ([place]) Comment on above: Performed By: #### C BC, GFR, MG, BMP, ADIFF, ANEU ####[address] [address] Monocytes/100 WBC (Bld) 13.3 % High 2.0-13.0 [facility] ([place]) Comment on above: Performed By: #### C BC, GFR, MG, BMP, ADIFF, ANEU ####[address] [address] Neutrophils/100 WBC (Bld) 65.5 % Normal 50.0-75.0 [facility] ([place]) Comment on above: Performed By: #### C BC, GFR, MG, BMP, ADIFF, ANEU ####[address] [address] .GFRon 05-13-2024 GFR 25 ml/min/1.73sqm Normal [facility] ([place]) Comment on above: Result Comment: GFR Population mean for , Non- Americans Ages 20-29 = 116 mL/min/1.73 sq.m. Ages 30-39 = 107 mL/min/1.73 sq.m. Ages 40-49 = 99 mL/min/1.73 sq.m. Ages 50-59 = 93 mL/min/1.73 sq.m. Ages 60-69 = 85 mL/min/1.73 sq.m. Ages 70+ = 75 mL/min/1.73 sq.m.Chronic Kidney Disease: Less than 60 mL/min/1.73 square metersEnd Stage Renal Disease: Less than 15 mL/min/1.73 square meters Performed By: #### G FR, BMP ####[address] [address] GFR Non- 21 ml/min/1.73sqm Normal [facility] ([place]) Comment on above: Result Comment: GFR Population mean for , Non- Americans Ages 20-29 = 116 mL/min/1.73 sq.m. Ages 30-39 = 107 mL/min/1.73 sq.m. Ages 40-49 = 99 mL/min/1.73 sq.m. Ages 50-59 = 93 mL/min/1.73 sq.m. Ages 60-69 = 85 mL/min/1.73 sq.m. Ages 70+ = 75 mL/min/1.73 sq.m.Chronic Kidney Disease: Less than 60 mL/min/1.73 square metersEnd Stage Renal Disease: Less than 15 mL/min/1.73 square meters Performed By: #### G FR, BMP ####[address] [address] GFR 26 ml/min/1.73sqm Normal [facility] ([place]) Comment on above: Result Comment: GFR Population mean for , Non- Americans Ages 20-29 = 116 mL/min/1.73 sq.m. Ages 30-39 = 107 mL/min/1.73 sq.m. Ages 40-49 = 99 mL/min/1.73 sq.m. Ages 50-59 = 93 mL/min/1.73 sq.m. Ages 60-69 = 85 mL/min/1.73 sq.m. Ages 70+ = 75 mL/min/1.73 sq.m.Chronic Kidney Disease: Less than 60 mL/min/1.73 square metersEnd Stage Renal Disease: Less than 15 mL/min/1.73 square meters Performed By: #### C BC, GFR, MG, BMP, ADIFF, ANEU ####[address] [address] GFR Non- 22 ml/min/1.73sqm Normal [facility] ([place]) Comment on above: Result Comment: GFR Population mean for , Non- Americans Ages 20-29 = 116 mL/min/1.73 sq.m. Ages 30-39 = 107 mL/min/1.73 sq.m. Ages 40-49 = 99 mL/min/1.73 sq.m. Ages 50-59 = 93 mL/min/1.73 sq.m. Ages 60-69 = 85 mL/min/1.73 sq.m. Ages 70+ = 75 mL/min/1.73 sq.m.Chronic Kidney Disease: Less than 60 mL/min/1.73 square metersEnd Stage Renal Disease: Less than 15 mL/min/1.73 square meters Performed By: #### C BC, GFR, MG, BMP, ADIFF, ANEU ####[address] [address] .NEUABSon 05-13-2024 Neutrophil, Absolute 4.9 10 3/mcL Normal 2.3-8.1 [facility] ([place]) Comment on above: Performed By: #### C BC, GFR, MG, BMP, ADIFF, ANEU ####[address] [address] BMPon 05-13-2024 BUN/Creatinine Ratio 19.1 ratio Normal 10.0-22.0 [facility] ([place]) Comment on above: Performed By: #### G FR, BMP ####[address] [address] Calcium [Mass/Vol] 7.6 mg/dL Low 8.7-10.4 [facility] ([place]) Comment on above: Performed By: #### G FR, BMP ####[address] [address] Chloride [Moles/Vol] 100 mmol/L Normal 98-110 [facility] ([place]) Comment on above: Performed By: #### G FR, BMP ####[address] [address] CO2 [Moles/Vol] 21 mmol/L Low 22-32 [facility] ([place]) Comment on above: Performed By: #### G FR, BMP ####[address] [address] Creatinine [Mass/Vol] 3.25 mg/dL High 0.60-1.40 [facility] ([place]) Comment on above: Performed By: #### Elizabeth SOTO, BMP ####[place] [address] Electrolyte Balance 11.0 mEq/L Normal 4.0-15.0 [facility] ([place]) Comment on above: Performed By: #### Elizabeth SOTO, BMP ####[address] [address] Glucose [Mass/Vol] 166 mg/dL High 70-110 [facility] ([place]) Comment on above: Performed By: #### Elizabeth SOTO, BMP ####[place] [address] Potassium [Moles/Vol] 5.4 mmol/L High 3.5-5.0 [facility] ([place]) Comment on above: Result Comment: Spec imen slightly hemolyzed. Performed By: #### Elizabeth SOTO, BMP ####[place] [address] Sodium [Moles/Vol] 132 mmol/L Low 136-145 [facility] ([place]) Comment on above: Performed By: #### Elizabeth SOTO, BMP ####[address] [address] Urea nitrogen [Mass/Vol] 62.0 mg/dL High 8.0-22.0 [facility] ([place]) Comment on above: Performed By: #### Elizabeth FR, BMP ####[place] [address] BUN/Creatinine Ratio 17.9 ratio Normal 10.0-22.0 [facility] ([place]) Comment on above: Performed By: #### C BC, GFR, MG, BMP, ADIFF, ANEU ####[address] [address] Calcium [Mass/Vol] 8.0 mg/dL Low 8.7-10.4 [facility] ([place]) Comment on above: Performed By: #### C BC, GFR, MG, BMP, ADIFF, ANEU ####[address] [address] Chloride [Moles/Vol] 101 mmol/L Normal 98-110 [facility] ([place]) Comment on above: Performed By: #### C BC, GFR, MG, BMP, ADIFF, ANEU ####[address] [address] CO2 [Moles/Vol] 21 mmol/L Low 22-32 [facility] ([place]) Comment on above: Performed By: #### C BC, GFR, MG, BMP, ADIFF, ANEU ####[address] [address] Creatinine [Mass/Vol] 3.12 mg/dL High 0.60-1.40 [facility] ([place]) Comment on above: Performed By: #### C BC, GFR, MG, BMP, ADIFF, ANEU ####[place] [address] Electrolyte Balance 9.0 mEq/L Normal 4.0-15.0 [facility] ([place]) Comment on above: Performed By: #### C BC, GFR, MG, BMP, ADIFF, ANEU ####[place] [address] Glucose [Mass/Vol] 161 mg/dL High 70-110 [facility] ([place]) Comment on above: Performed By: #### C BC, GFR, MG, BMP, ADIFF, ANEU ####[address] [address] Potassium [Moles/Vol] 5.1 mmol/L High 3.5-5.0 [facility] ([place]) Comment on above: Performed By: #### C BC, GFR, MG, BMP, ADIFF, ANEU ####[address] [address] Sodium [Moles/Vol] 131 mmol/L Low 136-145 [facility] ([place]) Comment on above: Performed By: #### C BC, GFR, MG, BMP, ADIFF, ANEU ####[address] [address] Urea nitrogen [Mass/Vol] 56.0 mg/dL High 8.0-22.0 [facility] ([place]) Comment on above: Performed By: #### C BC, GFR, MG, BMP, ADIFF, ANEU ####[place] [address] CBCon 05-13-2024 Erythrocyte distribution width (RBC) [Ratio] 19.2 % High 11.5-15.5 [facility] ([place]) Comment on above: Performed By: #### C BC, GFR, MG, BMP, ADIFF, ANEU ####[place] [address] Hematocrit (Bld) [Volume fraction] 25.1 % Low 40.0-52.0 [facility] ([place]) Comment on above: Performed By: #### C BC, GFR, MG, BMP, ADIFF, ANEU ####[place] [address] Hgb 8.2 G/dL Low 13.0-17.5 [facility] ([place]) Comment on above: Performed By: #### C BC, GFR, MG, BMP, ADIFF, ANEU ####[place] [address] MCH (RBC) [Entitic mass] 27.1 pg Normal 27.0-33.0 [facility] ([place]) Comment on above: Performed By: #### C BC, GFR, MG, BMP, ADIFF, ANEU ####[place] [address] MCHC 32.7 G/dL Normal 32.0-36.0 [facility] ([place]) Comment on above: Performed By: #### C BC, GFR, MG, BMP, ADIFF, ANEU ####[place] [address] MCV (RBC) [Entitic vol] 83.0 fL Normal 81.0-100.0 [facility] ([place]) Comment on above: Performed By: #### C BC, GFR, MG, BMP, ADIFF, ANEU ####[address] [address] Platelet 101 10 3/mcL Low 150-450 [facility] ([place]) Comment on above: Performed By: #### C BC, GFR, MG, BMP, ADIFF, ANEU ####[place] [address] Platelet mean volume (Bld) [Entitic vol] 8.2 fL Normal 6.4-10.5 [facility] ([place]) Comment on above: Performed By: #### C BC, GFR, MG, BMP, ADIFF, ANEU ####[place] [address] RBC 3.03 10 6/mcL Low 4.50-6.00 [facility] ([place]) Comment on above: Performed By: #### C BC, GFR, MG, BMP, ADIFF, ANEU ####[place] [address] WBC 7.4 10 3/mcL Normal 4.5-10.8 [facility] ([place]) Comment on above: Performed By: #### C BC, GFR, MG, BMP, ADIFF, ANEU ####[place] [address] LABORATORYOrdered By: SYSTEM SYSTEM on 05-13-2024 Calcium [Mass/Vol] 7.6 mg/dL Low 8.7 - 10. 4 mg/dL ADM SS Chloride [Moles/Vol] 100 mmol/L Normal 98 - 11 0 mEq/L ADM SS CO2 [Moles/Vol] 21 mmol/L Low 22 - 32 mEq/L ADM SS Creatinine [Mass/Vol] 3.25 mg/dL High 0.60 - 1.40 mg/dL ADM SS Electrolyte Balance 11.0 mEq/L Normal 4.0 - 15 .0 mEq/L AH ADM SS GFR/1.73 sq M.predicted among blacks MDRD (S/P/Bld) [Vol rate/Area] 25 ml/min/1.73sqm Invalid Interpretation Code ADM SS Comment on above: Interpretive Data: GFR Population mean for , Non- Americans Ages 20-29 = 116 mL/min/1.73 sq.m. Ages 30-39 = 107 mL/min/1.73 sq.m. Ages 40-49 = 99 mL/min/1.73 sq.m. Ages 50-59 = 93 mL/min/1.73 sq.m. Ages 60-69 = 85 mL/min/1.73 sq.m. Ages 70+ = 75 mL/min/1.73 sq.m. Chronic Kidney Disease: Less than 60 mL/min/1.73 square meters End Stage Renal Disease: Less than 15 mL/min/1.73 square meters GFR/1.73 sq M.predicted among non-blacks MDRD (S/P/Bld) [Vol rate/Area] 21 ml/min/1.73sqm Invalid Interpretation Code ADM SS Comment on above: Interpretive Data: GFR Population mean for , Non- Americans Ages 20-29 = 116 mL/min/1.73 sq.m. Ages 30-39 = 107 mL/min/1.73 sq.m. Ages 40-49 = 99 mL/min/1.73 sq.m. Ages 50-59 = 93 mL/min/1.73 sq.m. Ages 60-69 = 85 mL/min/1.73 sq.m. Ages 70+ = 75 mL/min/1.73 sq.m. Chronic Kidney Disease: Less than 60 mL/min/1.73 square meters End Stage Renal Disease: Less than 15 mL/min/1.73 square meters Glucose [Mass/Vol] 166 mg/dL High 70 - 110 mg/dL ADM SS Sodium [Moles/Vol] 132 mmol/L Low 136 - 145 mEq/L ADM SS Urea nitrogen [Mass/Vol] 62.0 mg/dL High 8.0 - 22.0 mg/dL ADM SS Urea nitrogen/Creatinine [Mass ratio] 19.1 ratio Normal 10.0 - 22.0 ratio AH ADM SS Basophils (Bld) [#/Vol] 0.0 103/mcL Normal 0.0 - 0.3 10^3/mcL Workflow SS Basophils/100 WBC (Bld) 0.5 % Normal 0.0 - 2.5 % Workflow SS Eosinophils (Bld) [#/Vol] 0.2 103/mcL Normal 0.0 - 0.7 10^3/mcL Workflow SS Eosinophils/100 WBC (Bld) 2.6 % Normal 0.0 - 6.0 % AH Workflow SS Erythrocyte distribution width (RBC) [Ratio] 19.2 % High 11.5 - 15.5 % AH Workflow SS Hematocrit (Bld) [Volume fraction] 25.1 % Low 40.0 - 52.0 % AH Workflow SS Hemoglobin (Bld) [Mass/Vol] 8.2 G/dL Low 13.0 - 17.5 G/dL AH Workflow SS Lymphocytes (Bld) [#/Vol] 1.3 103/mcL Normal 0.9 - 4.3 10^3/mcL AH Workflow SS Lymphocytes/100 WBC (Bld) 18.1 % Low 20.0 - 40.0 % AH Workflow SS Magnesium [Mass/Vol] 2.0 mg/dL Normal 1.6 - 2 .4 mg/dL AH ADM SS MCH (RBC) [Entitic mass] 27.1 pg Normal 27.0 - 33.0 pg AH Workflow SS MCHC 32.7 G/dL Normal 32.0 - 36.0 G/dL AH Workflow SS MCV (RBC) [Entitic vol] 83.0 fL Normal 81.0 - 100.0 fL AH Workflow SS Monocytes (Bld) [#/Vol] 1.0 103/mcL Normal 0.1 - 1.4 10^3/mcL AH Workflow SS Monocytes/100 WBC (Bld) 13.3 % High 2.0 - 13.0 % AH Workflow SS Neutrophils (Bld) [#/Vol] 4.9 103/mcL Normal 2.3 - 8.1 10^3/mcL AH Workflow SS Neutrophils/100 WBC (Bld) 65.5 % Normal 50.0 - 75.0 % AH Workflow SS Platelet mean volume (Bld) [Entitic vol] 8.2 fL Normal 6.4 - 10.5 fL AH Workflow SS Platelets (Bld) [#/Vol] 101 103/mcL Low 150 - 450 10^3/mcL AH Workflow SS RBC (Bld) [#/Vol] 3.03 106/mcL Low 4.50 - 6.00 10^6/mcL AH Workflow SS WBC (Bld) [#/Vol] 7.4 103/mcL Normal 4.5 - 10.8 10^3/mcL AH Workflow SS MGon 05-13-2024 Magnesium [Mass/Vol] 2.0 mg/dL Normal 1.6-2.4 [facility] ([place]) Comment on above: Performed By: #### C BC, GFR, MG, BMP, ADIFF, ANEU ####[address] [address] .Auto Diffon 05-12-2024 Basophil, Absolute 0.1 10 3/mcL Normal 0.0-0.3 [facility] ([place]) Comment on above: Performed By: #### B MP, CBC, ADIFF, ANEU, GFR, MG ####[address] [address] Basophils/100 WBC (Bld) 0.5 % Normal 0.0-2.5 [facility] ([place]) Comment on above: Performed By: #### B MP, CBC, ADIFF, ANEU, GFR, MG ####[address] [address] Eosinophil, Absolute 0.2 10 3/mcL Normal 0.0-0.7 [facility] ([place]) Comment on above: Performed By: #### B MP, CBC, ADIFF, ANEU, GFR, MG ####[address] [address] Eosinophils/100 WBC (Bld) 1.6 % Normal 0.0-6.0 [facility] ([place]) Comment on above: Performed By: #### B MP, CBC, ADIFF, ANEU, GFR, MG ####[address] [address] Lymphocyte, Absolute 1.7 10 3/mcL Normal 0.9-4.3 [facility] ([place]) Comment on above: Performed By: #### B MP, CBC, ADIFF, ANEU, GFR, MG ####[address] [address] Lymphocytes/100 WBC (Bld) 16.4 % Low 20.0-40.0 [facility] ([place]) Comment on above: Performed By: #### B MP, CBC, ADIFF, ANEU, GFR, MG ####[address] [address] Monocyte, Absolute 1.6 10 3/mcL High 0.1-1.4 [facility] ([place]) Comment on above: Performed By: #### B MP, CBC, ADIFF, ANEU, GFR, MG ####[address] [address] Monocytes/100 WBC (Bld) 15.4 % High 2.0-13.0 [facility] ([place]) Comment on above: Performed By: #### B MP, CBC, ADIFF, ANEU, GFR, MG ####[address] [address] Neutrophils/100 WBC (Bld) 66.1 % Normal 50.0-75.0 [facility] ([place]) Comment on above: Performed By: #### B MP, CBC, ADIFF, ANEU, GFR, MG ####[address] [address] .GFRon 05-12-2024 GFR Non- 23 ml/min/1.73sqm Normal [facility] ([place]) Comment on above: Result Comment: GFR Population mean for , Non- Americans Ages 20-29 = 116 mL/min/1.73 sq.m. Ages 30-39 = 107 mL/min/1.73 sq.m. Ages 40-49 = 99 mL/min/1.73 sq.m. Ages 50-59 = 93 mL/min/1.73 sq.m. Ages 60-69 = 85 mL/min/1.73 sq.m. Ages 70+ = 75 mL/min/1.73 sq.m.Chronic Kidney Disease: Less than 60 mL/min/1.73 square metersEnd Stage Renal Disease: Less than 15 mL/min/1.73 square meters Performed By: #### B MP, CBC, ADIFF, ANEU, GFR, MG ####[address] [address] GFR 28 ml/min/1.73sqm Normal [facility] ([place]) Comment on above: Result Comment: GFR Population mean for , Non- Americans Ages 20-29 = 116 mL/min/1.73 sq.m. Ages 30-39 = 107 mL/min/1.73 sq.m. Ages 40-49 = 99 mL/min/1.73 sq.m. Ages 50-59 = 93 mL/min/1.73 sq.m. Ages 60-69 = 85 mL/min/1.73 sq.m. Ages 70+ = 75 mL/min/1.73 sq.m.Chronic Kidney Disease: Less than 60 mL/min/1.73 square metersEnd Stage Renal Disease: Less than 15 mL/min/1.73 square meters Performed By: #### B MP, CBC, ADIFF, ANEU, GFR, MG ####[address] [address] .NEUABSon 05-12-2024 Neutrophil, Absolute 6.7 10 3/mcL Normal 2.3-8.1 [facility] ([place]) Comment on above: Performed By: #### B MP, CBC, ADIFF, ANEU, GFR, MG ####[address] [address] BMPon 05-12-2024 BUN/Creatinine Ratio 19.0 ratio Normal 10.0-22.0 [facility] ([place]) Comment on above: Performed By: #### B MP, CBC, ADIFF, ANEU, GFR, MG ####[place] [address] Calcium [Mass/Vol] 7.8 mg/dL Low 8.7-10.4 [facility] ([place]) Comment on above: Performed By: #### B MP, CBC, ADIFF, ANEU, GFR, MG ####[address] [address] Chloride [Moles/Vol] 101 mmol/L Normal 98-110 [facility] ([place]) Comment on above: Performed By: #### B MP, CBC, ADIFF, ANEU, GFR, MG ####[address] [address] CO2 [Moles/Vol] 22 mmol/L Normal 22-32 [facility] ([place]) Comment on above: Performed By: #### B MP, CBC, ADIFF, ANEU, GFR, MG ####[place] [address] Creatinine [Mass/Vol] 2.90 mg/dL High 0.60-1.40 [facility] ([place]) Comment on above: Performed By: #### B MP, CBC, ADIFF, ANEU, GFR, MG ####[place] [address] Electrolyte Balance 8.0 mEq/L Normal 4.0-15.0 [facility] ([place]) Comment on above: Performed By: #### B MP, CBC, ADIFF, ANEU, GFR, MG ####[place] [address] Glucose [Mass/Vol] 197 mg/dL High 70-110 [facility] ([place]) Comment on above: Performed By: #### B MP, CBC, ADIFF, ANEU, GFR, MG ####[place] [address] Potassium [Moles/Vol] 5.2 mmol/L High 3.5-5.0 [facility] ([place]) Comment on above: Performed By: #### B MP, CBC, ADIFF, ANEU, GFR, MG ####[place] [address] Sodium [Moles/Vol] 131 mmol/L Low 136-145 [facility] ([place]) Comment on above: Performed By: #### B MP, CBC, ADIFF, ANEU, GFR, MG ####[place] [address] Urea nitrogen [Mass/Vol] 55.0 mg/dL High 8.0-22.0 [facility] ([place]) Comment on above: Performed By: #### B MP, CBC, ADIFF, ANEU, GFR, MG ####[place] [address] CBCon 05-12-2024 Erythrocyte distribution width (RBC) [Ratio] 20.1 % High 11.5-15.5 [facility] ([place]) Comment on above: Performed By: #### B MP, CBC, ADIFF, ANEU, GFR, MG ####[place] [address] Hematocrit (Bld) [Volume fraction] 25.9 % Low 40.0-52.0 [facility] ([place]) Comment on above: Performed By: #### B MP, CBC, ADIFF, ANEU, GFR, MG ####[place] [address] Hgb 8.8 G/dL Low 13.0-17.5 [facility] ([place]) Comment on above: Performed By: #### B MP, CBC, ADIFF, ANEU, GFR, MG ####[place] [address] MCH (RBC) [Entitic mass] 27.9 pg Normal 27.0-33.0 [facility] ([place]) Comment on above: Performed By: #### B MP, CBC, ADIFF, ANEU, GFR, MG ####[place] [address] MCHC 33.9 G/dL Normal 32.0-36.0 [facility] ([place]) Comment on above: Performed By: #### B MP, CBC, ADIFF, ANEU, GFR, MG ####[place] [address] MCV (RBC) [Entitic vol] 82.4 fL Normal 81.0-100.0 [facility] ([place]) Comment on above: Performed By: #### B MP, CBC, ADIFF, ANEU, GFR, MG ####[place] [address] Platelet 117 10 3/mcL Low 150-450 [facility] ([place]) Comment on above: Performed By: #### B MP, CBC, ADIFF, ANEU, GFR, MG ####[place] [address] Platelet mean volume (Bld) [Entitic vol] 7.9 fL Normal 6.4-10.5 [facility] ([place]) Comment on above: Performed By: #### B MP, CBC, ADIFF, ANEU, GFR, MG ####[place] [address] RBC 3.14 10 6/mcL Low 4.50-6.00 [facility] ([place]) Comment on above: Performed By: #### B MP, CBC, ADIFF, ANEU, GFR, MG ####[address] [address] WBC 10.1 10 3/mcL Normal 4.5-10.8 [facility] ([place]) Comment on above: Performed By: #### B MP, CBC, ADIFF, ANEU, GFR, MG ####[address] [address] Rainer 05-12-2024 Potassium [Moles/Vol] 5.2 mmol/L High 3.5-5.0 [facility] ([place]) Comment on above: Performed By: #### K ####[place] [address] MGon 05-12-2024 Magnesium [Mass/Vol] 2.1 mg/dL Normal 1.6-2.4 [facility] ([place]) Comment on above: Performed By: #### B MP, CBC, ADIFF, ANEU, GFR, MG ####[address] [address] .Auto Diffon 05-11-2024 Basophil, Absolute 0.1 10 3/mcL Normal 0.0-0.3 [facility] ([place]) Comment on above: Performed By: #### A DIFF, MG, ANEU, BMP, CBC, GFR ####[address] [address] Basophils/100 WBC (Bld) 0.6 % Normal 0.0-2.5 [facility] ([place]) Comment on above: Performed By: #### A DIFF, MG, ANEU, BMP, CBC, GFR ####[address] [address] Eosinophil, Absolute 0.1 10 3/mcL Normal 0.0-0.7 [facility] ([place]) Comment on above: Performed By: #### A DIFF, MG, ANEU, BMP, CBC, GFR ####[address] [address] Eosinophils/100 WBC (Bld) 1.2 % Normal 0.0-6.0 [facility] ([place]) Comment on above: Performed By: #### A DIFF, MG, ANEU, BMP, CBC, GFR ####[address] [address] Lymphocyte, Absolute 1.8 10 3/mcL Normal 0.9-4.3 [facility] ([place]) Comment on above: Performed By: #### A DIFF, MG, ANEU, BMP, CBC, GFR ####[address] [address] Lymphocytes/100 WBC (Bld) 18.3 % Low 20.0-40.0 [facility] ([place]) Comment on above: Performed By: #### A DIFF, MG, ANEU, BMP, CBC, GFR ####[address] [address] Monocyte, Absolute 1.6 10 3/mcL High 0.1-1.4 [facility] ([place]) Comment on above: Performed By: #### A DIFF, MG, ANEU, BMP, CBC, GFR ####[address] [address] Monocytes/100 WBC (Bld) 16.3 % High 2.0-13.0 [facility] ([place]) Comment on above: Performed By: #### A DIFF, MG, ANEU, BMP, CBC, GFR ####[address] [address] Neutrophils/100 WBC (Bld) 63.6 % Normal 50.0-75.0 [facility] ([place]) Comment on above: Performed By: #### A DIFF, MG, ANEU, BMP, CBC, GFR ####[address] [address] .GFRon 05-11-2024 GFR 35 ml/min/1.73sqm Normal [facility] ([place]) Comment on above: Result Comment: GFR Population mean for , Non- Americans Ages 20-29 = 116 mL/min/1.73 sq.m. Ages 30-39 = 107 mL/min/1.73 sq.m. Ages 40-49 = 99 mL/min/1.73 sq.m. Ages 50-59 = 93 mL/min/1.73 sq.m. Ages 60-69 = 85 mL/min/1.73 sq.m. Ages 70+ = 75 mL/min/1.73 sq.m.Chronic Kidney Disease: Less than 60 mL/min/1.73 square metersEnd Stage Renal Disease: Less than 15 mL/min/1.73 square meters Performed By: #### A DIFF, MG, ANEU, BMP, CBC, GFR ####[address] [address] GFR Non- 29 ml/min/1.73sqm Normal [facility] ([place]) Comment on above: Result Comment: GFR Population mean for , Non- Americans Ages 20-29 = 116 mL/min/1.73 sq.m. Ages 30-39 = 107 mL/min/1.73 sq.m. Ages 40-49 = 99 mL/min/1.73 sq.m. Ages 50-59 = 93 mL/min/1.73 sq.m. Ages 60-69 = 85 mL/min/1.73 sq.m. Ages 70+ = 75 mL/min/1.73 sq.m.Chronic Kidney Disease: Less than 60 mL/min/1.73 square metersEnd Stage Renal Disease: Less than 15 mL/min/1.73 square meters Performed By: #### A DIFF, MG, ANEU, BMP, CBC, GFR ####[address] [address] .NEUABSon 05-11-2024 Neutrophil, Absolute 6.2 10 3/mcL Normal 2.3-8.1 [facility] ([place]) Comment on above: Performed By: #### A DIFF, MG, ANEU, BMP, CBC, GFR ####[address] [address] BMPon 05-11-2024 BUN/Creatinine Ratio 19.8 ratio Normal 10.0-22.0 [facility] ([place]) Comment on above: Performed By: #### A DIFF, MG, ANEU, BMP, CBC, GFR ####[address] [address] Calcium [Mass/Vol] 7.7 mg/dL Low 8.7-10.4 [facility] ([place]) Comment on above: Performed By: #### A DIFF, MG, ANEU, BMP, CBC, GFR ####[address] [address] Chloride [Moles/Vol] 102 mmol/L Normal 98-110 [facility] ([place]) Comment on above: Performed By: #### A DIFF, MG, ANEU, BMP, CBC, GFR ####[address] [address] CO2 [Moles/Vol] 22 mmol/L Normal 22-32 [facility] ([place]) Comment on above: Performed By: #### A DIFF, MG, ANEU, BMP, CBC, GFR ####[address] [address] Creatinine [Mass/Vol] 2.42 mg/dL High 0.60-1.40 [facility] ([place]) Comment on above: Performed By: #### A DIFF, MG, ANEU, BMP, CBC, GFR ####[place] [address] Electrolyte Balance 9.0 mEq/L Normal 4.0-15.0 [facility] ([place]) Comment on above: Performed By: #### A DIFF, MG, ANEU, BMP, CBC, GFR ####[address] [address] Glucose [Mass/Vol] 167 mg/dL High 70-110 [facility] ([place] Comment on above: Performed By: #### A DIFF, MG, ANEU, BMP, CBC, GFR ####[address] [address] Potassium [Moles/Vol] 4.8 mmol/L Normal 3.5-5.0 [facility] ([place]) Comment on above: Performed By: #### A DIFF, MG, ANEU, BMP, CBC, GFR ####[address] [address] Sodium [Moles/Vol] 133 mmol/L Low 136-145 [facility] ([place] Comment on above: Performed By: #### A DIFF, MG, ANEU, BMP, CBC, GFR ####[place] [address] Urea nitrogen [Mass/Vol] 48.0 mg/dL High 8.0-22.0 [facility] ([place]) Comment on above: Performed By: #### A DIFF, MG, ANEU, BMP, CBC, GFR ####[place] [address] CBCon 05-11-2024 Erythrocyte distribution width (RBC) [Ratio] 19.4 % High 11.5-15.5 [facility] ([place] Comment on above: Performed By: #### A DIFF, MG, ANEU, BMP, CBC, GFR ####[place] [address] Hematocrit (Bld) [Volume fraction] 27.3 % Low 40.0-52.0 [facility] ([place]) Comment on above: Performed By: #### A DIFF, MG, ANEU, BMP, CBC, GFR ####[place] [address] Hgb 9.3 G/dL Low 13.0-17.5 [facility] ([place]) Comment on above: Performed By: #### A DIFF, MG, ANEU, BMP, CBC, GFR ####[place] [address] MCH (RBC) [Entitic mass] 28.1 pg Normal 27.0-33.0 [facility] ([place]) Comment on above: Performed By: #### A DIFF, MG, ANEU, BMP, CBC, GFR ####[place] [address] MCHC 33.9 G/dL Normal 32.0-36.0 [facility] ([place]) Comment on above: Performed By: #### A DIFF, MG, ANEU, BMP, CBC, GFR ####[place] [address] MCV (RBC) [Entitic vol] 83.0 fL Normal 81.0-100.0 [facility] ([place] Comment on above: Performed By: #### A DIFF, MG, ANEU, BMP, CBC, GFR ####[place] [address] Platelet 123 10 3/mcL Low 150-450 [facility] ([place]) Comment on above: Performed By: #### A DIFF, MG, ANEU, BMP, CBC, GFR ####[place] [address] Platelet mean volume (Bld) [Entitic vol] 7.8 fL Normal 6.4-10.5 [facility] ([place]) Comment on above: Performed By: #### A DIFF, MG, ANEU, BMP, CBC, GFR ####[place] [address] RBC 3.29 10 6/mcL Low 4.50-6.00 [facility] ([place]) Comment on above: Performed By: #### A DIFF, MG, ANEU, BMP, CBC, GFR ####[place] [address] WBC 9.8 10 3/mcL Normal 4.5-10.8 [facility] ([place]) Comment on above: Performed By: #### A DIFF, MG, ANEU, BMP, CBC, GFR ####[place] [address] MGon 05-11-2024 Magnesium [Mass/Vol] 1.5 mg/dL Low 1.6-2.4 [facility] ([place]) Comment on above: Performed By: #### A DIFF, MG, ANEU, BMP, CBC, GFR ####[place] [address] .Auto Diffon 05-10-2024 Basophil, Absolute 0.1 10 3/mcL Normal 0.0-0.3 [facility] ([place]) Comment on above: Performed By: #### B MP, ADIFF, MG, CBC, ANEU, GFR ####[place] [address] Basophils/100 WBC (Bld) 1.0 % Normal 0.0-2.5 [facility] ([place]) Comment on above: Performed By: #### B MP, ADIFF, MG, CBC, ANEU, GFR ####[address] [address] Eosinophil, Absolute 0.2 10 3/mcL Normal 0.0-0.7 [facility] ([place]) Comment on above: Performed By: #### B MP, ADIFF, MG, CBC, ANEU, GFR ####[address] [address] Eosinophils/100 WBC (Bld) 1.9 % Normal 0.0-6.0 [facility] ([place]) Comment on above: Performed By: #### B MP, ADIFF, MG, CBC, ANEU, GFR ####[address] [address] Lymphocyte, Absolute 1.8 10 3/mcL Normal 0.9-4.3 [facility] ([place]) Comment on above: Performed By: #### B MP, ADIFF, MG, CBC, ANEU, GFR ####[address] [address] Lymphocytes/100 WBC (Bld) 20.7 % Normal 20.0-40.0 [facility] ([place]) Comment on above: Performed By: #### B MP, ADIFF, MG, CBC, ANEU, GFR ####[address] [address] Monocyte, Absolute 1.0 10 3/mcL Normal 0.1-1.4 [facility] ([place]) Comment on above: Performed By: #### B MP, ADIFF, MG, CBC, ANEU, GFR ####[address] [address] Monocytes/100 WBC (Bld) 11.8 % Normal 2.0-13.0 [facility] ([place] Comment on above: Performed By: #### B MP, ADIFF, MG, CBC, ANEU, GFR ####[address] [address] Neutrophils/100 WBC (Bld) 64.6 % Normal 50.0-75.0 [facility] ([place]) Comment on above: Performed By: #### B MP, ADIFF, MG, CBC, ANEU, GFR ####[address] [address] .GFRon 05-10-2024 GFR Non- 35 ml/min/1.73sqm Normal [facility] ([place]) Comment on above: Result Comment: GFR Population mean for , Non- Americans Ages 20-29 = 116 mL/min/1.73 sq.m. Ages 30-39 = 107 mL/min/1.73 sq.m. Ages 40-49 = 99 mL/min/1.73 sq.m. Ages 50-59 = 93 mL/min/1.73 sq.m. Ages 60-69 = 85 mL/min/1.73 sq.m. Ages 70+ = 75 mL/min/1.73 sq.m.Chronic Kidney Disease: Less than 60 mL/min/1.73 square metersEnd Stage Renal Disease: Less than 15 mL/min/1.73 square meters Performed By: #### B MP, ADIFF, MG, CBC, ANEU, GFR ####[address] [address] GFR 42 ml/min/1.73sqm Normal [facility] ([place]) Comment on above: Result Comment: GFR Population mean for , Non- Americans Ages 20-29 = 116 mL/min/1.73 sq.m. Ages 30-39 = 107 mL/min/1.73 sq.m. Ages 40-49 = 99 mL/min/1.73 sq.m. Ages 50-59 = 93 mL/min/1.73 sq.m. Ages 60-69 = 85 mL/min/1.73 sq.m. Ages 70+ = 75 mL/min/1.73 sq.m.Chronic Kidney Disease: Less than 60 mL/min/1.73 square metersEnd Stage Renal Disease: Less than 15 mL/min/1.73 square meters Performed By: #### B MP, ADIFF, MG, CBC, ANEU, GFR ####[address] [address] .NEUABSon 05-10-2024 Neutrophil, Absolute 5.5 10 3/mcL Normal 2.3-8.1 [facility] ([place]) Comment on above: Performed By: #### B MP, ADIFF, MG, CBC, ANEU, GFR ####[address] [address] APTTon 05-10-2024 aPTT Coag (Bld) [Time] 57.1 s High 25.0-35.0 [facility] ([place]) Comment on above: Result Comment: For Heparin anticoagulation therapy, the recommendedtherapeutic range is: 54-77 seconds (APTT Correlationwith Anti-Xa therapeutic range of 0.3-0.7 units/ml).PLEASE REFERENCE THE PHARMACY PROTOCOL FOR DOSING. Heparin dose (APTT) Heparin IV Normal [facility] ([place]) aPTT Coag (Bld) [Time] 38.9 s High 25.0-35.0 [facility] ([place]) Comment on above: Result Comment: For Heparin anticoagulation therapy, the recommendedtherapeutic range is: 54-77 seconds (APTT Correlationwith Anti-Xa therapeutic range of 0.3-0.7 units/ml).PLEASE REFERENCE THE PHARMACY PROTOCOL FOR DOSING. Heparin dose (APTT) Heparin IV Normal [facility] ([place]) BMPon 05-10-2024 BUN/Creatinine Ratio 19.8 ratio Normal 10.0-22.0 [facility] ([place]) Comment on above: Performed By: #### B MP, ADIFF, MG, CBC, ANEU, GFR ####[address] [address] Calcium [Mass/Vol] 8.4 mg/dL Low 8.7-10.4 [facility] ([place]) Comment on above: Performed By: #### B MP, ADIFF, MG, CBC, ANEU, GFR ####[address] [address] Chloride [Moles/Vol] 104 mmol/L Normal 98-110 [facility] ([place]) Comment on above: Performed By: #### B MP, ADIFF, MG, CBC, ANEU, GFR ####[address] [address] CO2 [Moles/Vol] 20 mmol/L Low 22-32 [facility] ([place]) Comment on above: Performed By: #### B MP, ADIFF, MG, CBC, ANEU, GFR ####[place] [address] Creatinine [Mass/Vol] 2.07 mg/dL High 0.60-1.40 [facility] ([place]) Comment on above: Performed By: #### B MP, ADIFF, MG, CBC, ANEU, GFR ####[place] [address] Electrolyte Balance 14.0 mEq/L Normal 4.0-15.0 [facility] ([place]) Comment on above: Performed By: #### B MP, ADIFF, MG, CBC, ANEU, GFR ####[place] [address] Glucose [Mass/Vol] 106 mg/dL Normal 70-110 [facility] ([place] Comment on above: Performed By: #### B MP, ADIFF, MG, CBC, ANEU, GFR ####[place] [address] Potassium [Moles/Vol] 4.2 mmol/L Normal 3.5-5.0 [facility] ([place]) Comment on above: Performed By: #### B MP, ADIFF, MG, CBC, ANEU, GFR ####[place] [address] Sodium [Moles/Vol] 138 mmol/L Normal 136-145 [facility] ([place]) Comment on above: Performed By: #### B MP, ADIFF, MG, CBC, ANEU, GFR ####[place] [address] Urea nitrogen [Mass/Vol] 41.0 mg/dL High 8.0-22.0 [facility] ([place]) Comment on above: Performed By: #### B MP, ADIFF, MG, CBC, ANEU, GFR ####[place] [address] CBCon 05-10-2024 Erythrocyte distribution width (RBC) [Ratio] 19.4 % High 11.5-15.5 [facility] ([place]) Comment on above: Performed By: #### B MP, ADIFF, MG, CBC, ANEU, GFR ####[place] [address] Hematocrit (Bld) [Volume fraction] 28.8 % Low 40.0-52.0 [facility] ([place]) Comment on above: Performed By: #### B MP, ADIFF, MG, CBC, ANEU, GFR ####[place] [address] Hgb 9.4 G/dL Low 13.0-17.5 [facility] ([place]) Comment on above: Performed By: #### B MP, ADIFF, MG, CBC, ANEU, GFR ####[place] [address] MCH (RBC) [Entitic mass] 27.1 pg Normal 27.0-33.0 [facility] ([place]) Comment on above: Performed By: #### B MP, ADIFF, MG, CBC, ANEU, GFR ####[place] [address] MCHC 32.7 G/dL Normal 32.0-36.0 [facility] ([place]) Comment on above: Performed By: #### B MP, ADIFF, MG, CBC, ANEU, GFR ####[place] [address] MCV (RBC) [Entitic vol] 82.8 fL Normal 81.0-100.0 [facility] ([place]) Comment on above: Performed By: #### B MP, ADIFF, MG, CBC, ANEU, GFR ####[place] [address] Platelet 147 10 3/mcL Low 150-450 [facility] ([place]) Comment on above: Performed By: #### B MP, ADIFF, MG, CBC, ANEU, GFR ####[place] [address] Platelet mean volume (Bld) [Entitic vol] 7.8 fL Normal 6.4-10.5 [facility] ([place]) Comment on above: Performed By: #### B MP, ADIFF, MG, CBC, ANEU, GFR ####[place] [address] RBC 3.48 10 6/mcL Low 4.50-6.00 [facility] ([place]) Comment on above: Performed By: #### B MP, ADIFF, MG, CBC, ANEU, GFR ####[address] [address] WBC 8.5 10 3/mcL Normal 4.5-10.8 [facility] ([place]) Comment on above: Performed By: #### B MP, ADIFF, MG, CBC, ANEU, GFR ####[address] [address] CWDPon 05-10-2024 CWDP Normal [facility] ([place]) CWDP Normal [facility] ([place]) LABORATORYOrdered By: Ryan Navarro on 05-10-2024 aPTT Coag (Bld) [Time] 57.1 s High 25.0 - 35.0 seconds AH [facility] SS Comment on above: Interpretive Data: F or Heparin anticoagulation therapy, the recommended therapeutic range is: 54-77 seconds (APTT Correlation with Anti-Xa therapeutic range of 0.3-0.7 units/ml). PLEASE REFERENCE THE PHARMACY PROTOCOL FOR DOSING. Heparin dose (APTT) Heparin IV (05/10/24 12:44 PM) Normal [facility] S aPTT Coag (Bld) [Time] 38.9 s High 25.0 - 35.0 seconds AH [facility] SS Comment on above: Interpretive Data: F or Heparin anticoagulation therapy, the recommended therapeutic range is: 54-77 seconds (APTT Correlation with Anti-Xa therapeutic range of 0.3-0.7 units/ml). PLEASE REFERENCE THE PHARMACY PROTOCOL FOR DOSING. Heparin dose (APTT) Heparin IV (05/10/24 5:16 AM) Normal [facility] S MGon 05-10-2024 Magnesium [Mass/Vol] 1.9 mg/dL Normal 1.6-2.4 [facility] ([place]) Comment on above: Performed By: #### B MP, ADIFF, MG, CBC, ANEU, GFR ####[address] [address] .Auto Diffon 05-09-2024 Basophil, Absolute 0.1 10 3/mcL Normal 0.0-0.3 [facility] ([place]) Comment on above: Performed By: #### G FR, A1C, CBC, ADIFF, ANEU, BMP, MG, LIPID ####[address] [address] Basophils/100 WBC (Bld) 0.7 % Normal 0.0-2.5 [facility] ([place]) Comment on above: Performed By: #### G FR, A1C, CBC, ADIFF, ANEU, BMP, MG, LIPID ####[address] [address] Eosinophil, Absolute 0.1 10 3/mcL Normal 0.0-0.7 [facility] ([place]) Comment on above: Performed By: #### G FR, A1C, CBC, ADIFF, ANEU, BMP, MG, LIPID ####[address] [address] Eosinophils/100 WBC (Bld) 1.4 % Normal 0.0-6.0 [facility] ([place]) Comment on above: Performed By: #### G FR, A1C, CBC, ADIFF, ANEU, BMP, MG, LIPID ####[address] [address] Lymphocyte, Absolute 1.5 10 3/mcL Normal 0.9-4.3 [facility] ([place]) Comment on above: Performed By: #### G FR, A1C, CBC, ADIFF, ANEU, BMP, MG, LIPID ####[address] [address] Lymphocytes/100 WBC (Bld) 18.2 % Low 20.0-40.0 [facility] ([place]) Comment on above: Performed By: #### G FR, A1C, CBC, ADIFF, ANEU, BMP, MG, LIPID ####[address] [address] Monocyte, Absolute 0.7 10 3/mcL Normal 0.1-1.4 [facility] ([place]) Comment on above: Performed By: #### G FR, A1C, CBC, ADIFF, ANEU, BMP, MG, LIPID ####[place] [address] Monocytes/100 WBC (Bld) 8.9 % Normal 2.0-13.0 [facility] ([place]) Comment on above: Performed By: #### G FR, A1C, CBC, ADIFF, ANEU, BMP, MG, LIPID ####[address] [address] Neutrophils/100 WBC (Bld) 70.8 % Normal 50.0-75.0 [facility] ([place]) Comment on above: Performed By: #### G FR, A1C, CBC, ADIFF, ANEU, BMP, MG, LIPID ####[address] [address] .GFRon 05-09-2024 GFR Non- 37 ml/min/1.73sqm Normal [facility] ([place]) Comment on above: Result Comment: GFR Population mean for , Non- Americans Ages 20-29 = 116 mL/min/1.73 sq.m. Ages 30-39 = 107 mL/min/1.73 sq.m. Ages 40-49 = 99 mL/min/1.73 sq.m. Ages 50-59 = 93 mL/min/1.73 sq.m. Ages 60-69 = 85 mL/min/1.73 sq.m. Ages 70+ = 75 mL/min/1.73 sq.m.Chronic Kidney Disease: Less than 60 mL/min/1.73 square metersEnd Stage Renal Disease: Less than 15 mL/min/1.73 square meters Performed By: #### G FR, A1C, CBC, ADIFF, ANEU, BMP, MG, LIPID ####[address] [address] GFR 45 ml/min/1.73sqm Normal [facility] ([place]) Comment on above: Result Comment: GFR Population mean for , Non- Americans Ages 20-29 = 116 mL/min/1.73 sq.m. Ages 30-39 = 107 mL/min/1.73 sq.m. Ages 40-49 = 99 mL/min/1.73 sq.m. Ages 50-59 = 93 mL/min/1.73 sq.m. Ages 60-69 = 85 mL/min/1.73 sq.m. Ages 70+ = 75 mL/min/1.73 sq.m.Chronic Kidney Disease: Less than 60 mL/min/1.73 square metersEnd Stage Renal Disease: Less than 15 mL/min/1.73 square meters Performed By: #### G FR, A1C, CBC, ADIFF, ANEU, BMP, MG, LIPID ####[address] [address] .NEUABSon 05-09-2024 Neutrophil, Absolute 5.8 10 3/mcL Normal 2.3-8.1 [facility] ([place]) Comment on above: Performed By: #### G FR, A1C, CBC, ADIFF, ANEU, BMP, MG, LIPID ####[place] [address] A1Con 05-09-2024 HbA1c (Bld) [Mass fraction] 9.1 % High 4.0-6.0 [facility] ([place]) Comment on above: Performed By: #### G FR, A1C, CBC, ADIFF, ANEU, BMP, MG, LIPID ####[place] [address] APTTon 05-09-2024 aPTT Coag (Bld) [Time] 52.3 s High 25.0-35.0 [facility] ([place]) Comment on above: Result Comment: For Heparin anticoagulation therapy, the recommendedtherapeutic range is: 54-77 seconds (APTT Correlationwith Anti-Xa therapeutic range of 0.3-0.7 units/ml).PLEASE REFERENCE THE PHARMACY PROTOCOL FOR DOSING. Heparin dose (APTT) Heparin IV Normal [facility] ([place]) aPTT Coag (Bld) [Time] 47.8 s High 25.0-35.0 [facility] ([place]) Comment on above: Result Comment: For Heparin anticoagulation therapy, the recommendedtherapeutic range is: 54-77 seconds (APTT Correlationwith Anti-Xa therapeutic range of 0.3-0.7 units/ml).PLEASE REFERENCE THE PHARMACY PROTOCOL FOR DOSING. Heparin dose (APTT) Unknown Normal [facility] ([place]) aPTT Coag (Bld) [Time] 37.5 s High 25.0-35.0 [facility] ([place]) Comment on above: Result Comment: Spec imen hemolyzed. Results may be affected.For Heparin anticoagulation therapy, the recommendedtherapeutic range is: 54-77 seconds (APTT Correlationwith Anti-Xa therapeutic range of 0.3-0.7 units/ml).PLEASE REFERENCE THE PHARMACY PROTOCOL FOR DOSING. Heparin dose (APTT) Heparin IV Normal [facility] ([place]) aPTT Coag (Bld) [Time] 42.2 s High 25.0-35.0 [facility] ([place]) Comment on above: Result Comment: For Heparin anticoagulation therapy, the recommendedtherapeutic range is: 54-77 seconds (APTT Correlationwith Anti-Xa therapeutic range of 0.3-0.7 units/ml).PLEASE REFERENCE THE PHARMACY PROTOCOL FOR DOSING. Heparin dose (APTT) Heparin IV Normal [facility] ([place]) BMPon 05-09-2024 BUN/Creatinine Ratio 22.6 ratio High 10.0-22.0 [facility] ([place]) Comment on above: Performed By: #### G FR, A1C, CBC, ADIFF, ANEU, BMP, MG, LIPID ####[address] [address] Calcium [Mass/Vol] 8.5 mg/dL Low 8.7-10.4 [facility] ([place]) Comment on above: Performed By: #### G FR, A1C, CBC, ADIFF, ANEU, BMP, MG, LIPID ####[address] [address] Chloride [Moles/Vol] 105 mmol/L Normal 98-110 [facility] ([place]) Comment on above: Performed By: #### G FR, A1C, CBC, ADIFF, ANEU, BMP, MG, LIPID ####[address] [address] CO2 [Moles/Vol] 26 mmol/L Normal 22-32 [facility] ([place]) Comment on above: Performed By: #### G FR, A1C, CBC, ADIFF, ANEU, BMP, MG, LIPID ####[address] [address] Creatinine [Mass/Vol] 1.95 mg/dL High 0.60-1.40 [facility] ([place]) Comment on above: Performed By: #### G FR, A1C, CBC, ADIFF, ANEU, BMP, MG, LIPID ####[address] [address] Electrolyte Balance 9.0 mEq/L Normal 4.0-15.0 [facility] ([place]) Comment on above: Performed By: #### G FR, A1C, CBC, ADIFF, ANEU, BMP, MG, LIPID ####[place] [address] Glucose [Mass/Vol] 66 mg/dL Low 70-110 [facility] ([place]) Comment on above: Performed By: #### G FR, A1C, CBC, ADIFF, ANEU, BMP, MG, LIPID ####[place] [address] Potassium [Moles/Vol] 3.4 mmol/L Low 3.5-5.0 [facility] ([place]) Comment on above: Performed By: #### G FR, A1C, CBC, ADIFF, ANEU, BMP, MG, LIPID ####[place] [address] Sodium [Moles/Vol] 140 mmol/L Normal 136-145 [facility] ([place]) Comment on above: Performed By: #### G FR, A1C, CBC, ADIFF, ANEU, BMP, MG, LIPID ####[place] [address] Urea nitrogen [Mass/Vol] 44.0 mg/dL High 8.0-22.0 [facility] ([place]) Comment on above: Performed By: #### G FR, A1C, CBC, ADIFF, ANEU, BMP, MG, LIPID ####[place] [address] CBCon 05-09-2024 Erythrocyte distribution width (RBC) [Ratio] 19.5 % High 11.5-15.5 [facility] ([place]) Comment on above: Performed By: #### G FR, A1C, CBC, ADIFF, ANEU, BMP, MG, LIPID ####[place] [address] Hematocrit (Bld) [Volume fraction] 29.4 % Low 40.0-52.0 [facility] ([place]) Comment on above: Performed By: #### G FR, A1C, CBC, ADIFF, ANEU, BMP, MG, LIPID ####[place] [address] Hgb 9.7 G/dL Low 13.0-17.5 [facility] ([place]) Comment on above: Performed By: #### G FR, A1C, CBC, ADIFF, ANEU, BMP, MG, LIPID ####[place] [address] MCH (RBC) [Entitic mass] 27.0 pg Normal 27.0-33.0 [facility] ([place]) Comment on above: Performed By: #### G FR, A1C, CBC, ADIFF, ANEU, BMP, MG, LIPID ####[place] [address] MCHC 33.1 G/dL Normal 32.0-36.0 [facility] ([place]) Comment on above: Performed By: #### G FR, A1C, CBC, ADIFF, ANEU, BMP, MG, LIPID ####[place] [address] MCV (RBC) [Entitic vol] 81.8 fL Normal 81.0-100.0 [facility] ([place]) Comment on above: Performed By: #### G FR, A1C, CBC, ADIFF, ANEU, BMP, MG, LIPID ####[place] [address] Platelet 161 10 3/mcL Normal 150-450 [facility] ([place]) Comment on above: Performed By: #### G FR, A1C, CBC, ADIFF, ANEU, BMP, MG, LIPID ####[place] [address] Platelet mean volume (Bld) [Entitic vol] 7.5 fL Normal 6.4-10.5 [facility] ([place]) Comment on above: Performed By: #### G FR, A1C, CBC, ADIFF, ANEU, BMP, MG, LIPID ####[place] [id number] [address] [place] [address] RBC 3.59 10 6/mcL Low 4.50-6.00 [facility] ([place]) Comment on above: Performed By: #### G FR, A1C, CBC, ADIFF, ANEU, BMP, MG, LIPID ####[address] [address] WBC 8.2 10 3/mcL Normal 4.5-10.8 [facility] ([place]) Comment on above: Performed By: #### G FR, A1C, CBC, ADIFF, ANEU, BMP, MG, LIPID ####[address] [address] LABORATORYOrdered By: Aleksey Barajas on 05-09-2024 aPTT Coag (Bld) [Time] 52.3 s High 25.0 - 35.0 seconds [facility] SS Comment on above: Interpretive Data: F or Heparin anticoagulation therapy, the recommended therapeutic range is: 54-77 seconds (APTT Correlation with Anti-Xa therapeutic range of 0.3-0.7 units/ml). PLEASE REFERENCE THE PHARMACY PROTOCOL FOR DOSING. Heparin dose (APTT) Heparin IV (05/09/24 10:27 PM) Normal [facility] S LABORATORYOrdered By: Beto Rodriguez on 05-09-2024 Cholesterol [Mass/Vol] 131 mg/dL Normal 50 - 199 mg/dL ADM SS Comment on above: Interpretive Data: C holesterol Reference Interval: Less than 200 Desirable 200-239 Borderline high risk 240 and above High risk Cholesterol in HDL [Mass/Vol] 31 mg/dL Low 40 - 59 mg/dL ADM SS Cholesterol in LDL [Mass/Vol] 66 mg/dL Normal 0 - 129 mg/dL ADM SS Triglyceride [Mass/Vol] 170 mg/dL High 3 - 149 mg/dL ADM SS LABORATORYOrdered By: SYSTEM SYSTEM on 05-09-2024 HbA1c (Bld) [Mass fraction] 9.1 % High 4.0 - 6.0 % Auto [facility] SS LIPIDon 05-09-2024 Cholesterol [Mass/Vol] 131 mg/dL Normal 50-199 [facility] ([place]) Comment on above: Result Comment: Chol esterol Reference Interval:Less than 200 [id number] Borderline high [id number] and above High risk Performed By: #### G FR, A1C, CBC, ADIFF, ANEU, BMP, MG, LIPID ####[address] [address] Cholesterol in HDL [Mass/Vol] 31 mg/dL Low 40-59 [facility] ([place]) Comment on above: Performed By: #### G FR, A1C, CBC, ADIFF, ANEU, BMP, MG, LIPID ####[address] [address] Cholesterol in LDL [Mass/Vol] 66 mg/dL Normal 0-129 [facility] ([place]) Comment on above: Performed By: #### G FR, A1C, CBC, ADIFF, ANEU, BMP, MG, LIPID ####[address] [address] Triglyceride [Mass/Vol] 170 mg/dL High 3-149 [facility] ([place]) Comment on above: Performed By: #### G FR, A1C, CBC, ADIFF, ANEU, BMP, MG, LIPID ####[address] [address] MGon 05-09-2024 Magnesium [Mass/Vol] 1.9 mg/dL Normal 1.6-2.4 [facility] ([place]) Comment on above: Performed By: #### G FR, A1C, CBC, ADIFF, ANEU, BMP, MG, LIPID ####[address] [address] NM MYOCARDIAL SPECT STRESS/R ESTon 05-09-2024 NM MYOCARDIAL SPECT STRESS/REST Normal [facility] ([place]) .Auto Diffon 05-08-2024 Basophil, Absolute 0.0 10 3/mcL Normal 0.0-0.3 [facility]) Comment on above: Performed By: #### T ROPHS, ANEU, CMP, GFR, MG, TSH, CAION, ADIFF, CBC ####[address] [address] Basophils/100 WBC (Bld) 0.6 % Normal 0.0-2.5 [facility] ([place]) Comment on above: Performed By: #### T ROPHS, ANEU, CMP, GFR, MG, TSH, CAION, ADIFF, CBC ####[address] [address] Eosinophil, Absolute 0.1 10 3/mcL Normal 0.0-0.7 [facility] ([place]) Comment on above: Performed By: #### T ROPHS, ANEU, CMP, GFR, MG, TSH, CAION, ADIFF, CBC ####[address] [address] Eosinophils/100 WBC (Bld) 0.6 % Normal 0.0-6.0 [facility] ([place]) Comment on above: Performed By: #### T ROPHS, ANEU, CMP, GFR, MG, TSH, CAION, ADIFF, CBC ####[address] [address] Lymphocyte, Absolute 1.0 10 3/mcL Normal 0.9-4.3 [facility] ([place]) Comment on above: Performed By: #### T ROPHS, ANEU, CMP, GFR, MG, TSH, CAION, ADIFF, CBC ####[address] [address] Lymphocytes/100 WBC (Bld) 11.8 % Low 20.0-40.0 [facility] ([place]) Comment on above: Performed By: #### T ROPHS, ANEU, CMP, GFR, MG, TSH, CAION, ADIFF, CBC ####[address] [address] Monocyte, Absolute 0.5 10 3/mcL Normal 0.1-1.4 [facility] ([place]) Comment on above: Performed By: #### T ROPHS, ANEU, CMP, GFR, MG, TSH, CAION, ADIFF, CBC ####[address] [address] Monocytes/100 WBC (Bld) 6.4 % Normal 2.0-13.0 [facility] ([place]) Comment on above: Performed By: #### T TOMHS, ANEU, CMP, GFR, MG, TSH, CAION, ADIFF, CBC ####[address] [address] Neutrophils/100 WBC (Bld) 80.6 % High 50.0-75.0 [facility] ([place]) Comment on above: Performed By: #### T TOMHS, ANEU, CMP, GFR, MG, TSH, CAION, ADIFF, CBC ####[address] [address] .GFRon 05-08-2024 GFR Non- 34 ml/min/1.73sqm Normal [facility] ([place]) Comment on above: Result Comment: GFR Population mean for , Non- Americans Ages 20-29 = 116 mL/min/1.73 sq.m. Ages 30-39 = 107 mL/min/1.73 sq.m. Ages 40-49 = 99 mL/min/1.73 sq.m. Ages 50-59 = 93 mL/min/1.73 sq.m. Ages 60-69 = 85 mL/min/1.73 sq.m. Ages 70+ = 75 mL/min/1.73 sq.m.Chronic Kidney Disease: Less than 60 mL/min/1.73 square metersEnd Stage Renal Disease: Less than 15 mL/min/1.73 square meters Performed By: #### T ROPHS, ANEU, CMP, GFR, MG, TSH, CAION, ADIFF, CBC ####[address] [address] GFR 42 ml/min/1.73sqm Normal [facility] ([place]) Comment on above: Result Comment: GFR Population mean for , Non- Americans Ages 20-29 = 116 mL/min/1.73 sq.m. Ages 30-39 = 107 mL/min/1.73 sq.m. Ages 40-49 = 99 mL/min/1.73 sq.m. Ages 50-59 = 93 mL/min/1.73 sq.m. Ages 60-69 = 85 mL/min/1.73 sq.m. Ages 70+ = 75 mL/min/1.73 sq.m.Chronic Kidney Disease: Less than 60 mL/min/1.73 square metersEnd Stage Renal Disease: Less than 15 mL/min/1.73 square meters Performed By: #### T ROPHS, ANEU, CMP, GFR, MG, TSH, CAION, ADIFF, CBC ####[place] [address] .NEUABSon 05-08-2024 Neutrophil, Absolute 6.5 10 3/mcL Normal 2.3-8.1 [facility] ([place]) Comment on above: Performed By: #### T TOMHS, ANEU, CMP, GFR, MG, TSH, CAION, ADIFF, CBC ####[place] [address] APTTon 05-08-2024 aPTT Coag (Bld) [Time] 36.3 s High 25.0-35.0 [facility] ([place]) Comment on above: Result Comment: For Heparin anticoagulation therapy, the recommendedtherapeutic range is: 54-77 seconds (APTT Correlationwith Anti-Xa therapeutic range of 0.3-0.7 units/ml).PLEASE REFERENCE THE PHARMACY PROTOCOL FOR DOSING. Performed By: #### P RO ####[place] [address] Heparin dose (APTT) Heparin IV Normal [facility] ([place]) Comment on above: Performed By: #### P RO ####[place] [address] CAIONon 05-08-2024 Calcium Ionized 1.17 mmol/L Normal 1.12-1.32 [facility] ([place]) Comment on above: Performed By: #### T TOMHS, ANEU, CMP, GFR, MG, TSH, CAION, ADIFF, CBC ####[place] [address] CBCon 05-08-2024 Erythrocyte distribution width (RBC) [Ratio] 19.4 % High 11.5-15.5 [facility] ([place]) Comment on above: Performed By: #### T TOMHS, ANEU, CMP, GFR, MG, TSH, CAION, ADIFF, CBC ####[place] [address] Hematocrit (Bld) [Volume fraction] 30.8 % Low 40.0-52.0 [facility] ([place]) Comment on above: Performed By: #### T ROPHS, ANEU, CMP, GFR, MG, TSH, CAION, ADIFF, CBC ####[place] [address] Hgb 10.3 G/dL Low 13.0-17.5 [facility] ([place]) Comment on above: Performed By: #### T ROPHS, ANEU, CMP, GFR, MG, TSH, CAION, ADIFF, CBC ####[place] [address] MCH (RBC) [Entitic mass] 27.6 pg Normal 27.0-33.0 [facility] ([place]) Comment on above: Performed By: #### T ROPHS, ANEU, CMP, GFR, MG, TSH, CAION, ADIFF, CBC ####[place] [address] MCHC 33.6 G/dL Normal 32.0-36.0 [facility] ([place]) Comment on above: Performed By: #### T ROPHS, ANEU, CMP, GFR, MG, TSH, CAION, ADIFF, CBC ####[place] [address] MCV (RBC) [Entitic vol] 82.1 fL Normal 81.0-100.0 [facility] ([place]) Comment on above: Performed By: #### T ROPHS, ANEU, CMP, GFR, MG, TSH, CAION, ADIFF, CBC ####[place] [address] Platelet 198 10 3/mcL Normal 150-450 [facility] ([place]) Comment on above: Performed By: #### T ROPHS, ANEU, CMP, GFR, MG, TSH, CAION, ADIFF, CBC ####[place] [address] Platelet mean volume (Bld) [Entitic vol] 7.6 fL Normal 6.4-10.5 [facility] ([place]) Comment on above: Performed By: #### T ROPHS, ANEU, CMP, GFR, MG, TSH, CAION, ADIFF, CBC ####[address] [address] RBC 3.75 10 6/mcL Low 4.50-6.00 [facility] ([place]) Comment on above: Performed By: #### T ROPHS, ANEU, CMP, GFR, MG, TSH, CAION, ADIFF, CBC ####[place] [address] WBC 8.1 10 3/mcL Normal 4.5-10.8 [facility] ([place]) Comment on above: Performed By: #### T ROPHS, ANEU, CMP, GFR, MG, TSH, CAION, ADIFF, CBC ####[place] [address] CMPon 05-08-2024 Albumin Level 1.5 G/dL Low 3.2-4.8 [facility] ([place]) Comment on above: Performed By: #### T ROPHS, ANEU, CMP, GFR, MG, TSH, CAION, ADIFF, CBC ####[place] [address] Albumin/Globulin [Mass ratio] 0.3 {ratio} Low 0.9-1.6 [facility] ([place]) Comment on above: Performed By: #### T ROPHS, ANEU, CMP, GFR, MG, TSH, CAION, ADIFF, CBC ####[address] [address] ALP [Catalytic activity/Vol] 476 U/L High 38-126 [facility] ([place]) Comment on above: Performed By: #### T ROPHS, ANEU, CMP, GFR, MG, TSH, CAION, ADIFF, CBC ####[address] [address] ALT [Catalytic activity/Vol] 14 U/L Normal 12-55 [facility] ([place]) Comment on above: Performed By: #### T ROPHS, ANEU, CMP, GFR, MG, TSH, CAION, ADIFF, CBC ####[address] [address] AST [Catalytic activity/Vol] 15 U/L Normal 8-34 [facility] ([place]) Comment on above: Performed By: #### T ROPHS, ANEU, CMP, GFR, MG, TSH, CAION, ADIFF, CBC ####[address] [address] Bili Total 0.40 mg/dL Normal 0.20-1.20 [facility] ([place]) Comment on above: Result Comment: Use of this assay is not recommended for patients undergoing treatment with eltrombopag due to the potential for falsely elevated results. Performed By: #### T ROPHS, ANEU, CMP, GFR, MG, TSH, CAION, ADIFF, CBC ####[place] [address] BUN/Creatinine Ratio 25.0 ratio High 10.0-22.0 [facility] ([place]) Comment on above: Performed By: #### T ROPHS, ANEU, CMP, GFR, MG, TSH, CAION, ADIFF, CBC ####[address] [address] Calcium [Mass/Vol] 8.3 mg/dL Low 8.7-10.4 [facility] ([place]) Comment on above: Performed By: #### T ROPHS, ANEU, CMP, GFR, MG, TSH, CAION, ADIFF, CBC ####[address] [address] Chloride [Moles/Vol] 105 mmol/L Normal 98-110 [facility] ([place]) Comment on above: Performed By: #### T ROPHS, ANEU, CMP, GFR, MG, TSH, CAION, ADIFF, CBC ####[address] [address] CO2 [Moles/Vol] 24 mmol/L Normal 22-32 [facility] ([place]) Comment on above: Performed By: #### T ROPHS, ANEU, CMP, GFR, MG, TSH, CAION, ADIFF, CBC ####[address] [address] Creatinine [Mass/Vol] 2.08 mg/dL High 0.60-1.40 [facility] ([place]) Comment on above: Performed By: #### T ROPHS, ANEU, CMP, GFR, MG, TSH, CAION, ADIFF, CBC ####[address] [address] Electrolyte Balance 11.0 mEq/L Normal 4.0-15.0 [facility] ([place]) Comment on above: Performed By: #### T ROPHS, ANEU, CMP, GFR, MG, TSH, CAION, ADIFF, CBC ####[place] [id number] [place] [id number] Globulin 5.5 G/dL High 1.5-3.8 [facility] ([place]) Comment on above: Performed By: #### T ROPHS, ANEU, CMP, GFR, MG, TSH, CAION, ADIFF, CBC ####[address] [address] Glucose [Mass/Vol] 181 mg/dL High 70-110 [facility] ([place]) Comment on above: Performed By: #### T ROPHS, ANEU, CMP, GFR, MG, TSH, CAION, ADIFF, CBC ####[address] [address] Potassium [Moles/Vol] 3.5 mmol/L Normal 3.5-5.0 [facility] ([place]) Comment on above: Performed By: #### T ROPHS, ANEU, CMP, GFR, MG, TSH, CAION, ADIFF, CBC ####[address] [address] Sodium [Moles/Vol] 140 mmol/L Normal 136-145 [facility] ([place]) Comment on above: Performed By: #### T ROPHS, ANEU, CMP, GFR, MG, TSH, CAION, ADIFF, CBC ####[address] [address] Total Protein 7.0 G/dL Normal 5.7-8.2 [facility] ([place]) Comment on above: Result Comment: No te - New Reference Range in effect 20 Performed By: #### T ROPHS, ANEU, CMP, GFR, MG, TSH, CAION, ADIFF, CBC ####[facility] [place] [id number] Urea nitrogen [Mass/Vol] 52.0 mg/dL High 8.0-22.0 [facility] ([place]) Comment on above: Performed By: #### T ROPHS, ANEU, CMP, GFR, MG, TSH, CAION, ADIFF, CBC ####[facility] [place] [id number] LABORATORYOrdered By: Samra Cortes on 05-08-2024 PT Coag (PPP) [Time] 17.6 s High 9.0 - 1 4.4 seconds [facility] Comment on above: Interpretive Data: E ffective 06/02/08, Protime results may be affected by some antibiotics (i.e. Ciprofloxacin, Azithromycin, Bactrim) which may potentiate the action of oral anticoagulants, with further increases in Protime/INR. PT International Ratio 1.5 ratio Invalid Interpretation Code HemMTub Comment on above: Interpretive Data: Alexis briones [employer] (CHEST, 1991, 102:[id number]) recommended therapeutic range for oral anticoagulant therapy is: LOW RISK: Prophylaxis of venous thrombosis INR: 2.0-3.0 Treatment of pulmonary embolism 2.0-3.0 Prevention of systemic embolism 2.0-3.0 HIGH RISK: Mechanical prosthetic valves 2.5-3.5 LABORATORYOrdered By: SYSTEM SYSTEM on 05-08-2024 Troponin I.cardiac DL <= 0.01 ng/mL [Mass/Vol] 15 ng/L Normal 0 - 54 ng/L [facility] Comment on above: Interpretive Data: High Sensitive Troponin I Reference Ranges: Female: 0-34 ng/L Male: 0-54 ng/L Testing performed on HackerRank IM analyzer using direct chemiluminescent technology. Troponin I.cardiac DL <= 0.01 ng/mL [Mass/Vol] 14 ng/L Normal 0 - 54 ng/L [facility] Comment on above: Interpretive Data: High Sensitive Troponin I Reference Ranges: Female: 0-34 ng/L Male: 0-54 ng/L Testing performed on Atellica IM analyzer using direct chemiluminescent technology. Albumin BCP dye [Mass/Vol] 1.5 G/dL Low 3.2 - 4.8 G/dL AH ADM SS Albumin/Globulin [Mass ratio] 0.3 {ratio} Low 0.9 - 1.6 ratio AH ADM SS ALP [Catalytic activity/Vol] 476 U/L High 38 - 126 U/L AH ADM SS ALT No additional P-5'-P [Catalytic activity/Vol] 14 U/L Normal 12 - 55 U/L AH ADM SS AST [Catalytic activity/Vol] 15 U/L Normal 8 - 34 U/L AH ADM SS Bilirubin [Mass/Vol] 0.40 mg/dL Normal 0.20 - 1.20 mg/dL AH ADM SS Comment on above: Interpretive Data: U se of this assay is not recommended for patients undergoing treatment with eltrombopag due to the potential for falsely elevated results. Globulin 5.5 G/dL High 1.5 - 3.8 G/dL AH ADM SS Protein [Mass/Vol] 7.0 G/dL Normal 5.7 - 8.2 G/dL ADM SS Comment on above: Interpretive Data: * *Note - New Reference Range in effect 20 Troponin I.cardiac DL <= 0.01 ng/mL [Mass/Vol] 13 ng/L Normal 0 - 54 ng/L ADM SS Comment on above: Interpretive Data: High Sensitive Troponin I Reference Ranges: Female: 0-34 ng/L Male: 0-54 ng/L Testing performed on Atellica IM analyzer using direct chemiluminescent technology. TSH Qn 3.822 mIU/mL Normal 0.550 - 4.780 mIU/mL ADM SS Comment on above: Interpretive Data: * *Note - New Reference Range in effect 20 LABORATORYOrdered By: Missy wilson on 05-08-2024 Calcium Ionized 1.17 mmol/L Normal 1.12 - 1.32 mmol/L Main Rapid Comm SS MGon 05-08-2024 Magnesium [Mass/Vol] 1.6 mg/dL Normal 1.6-2.4 [facility] ([place]) Comment on above: Performed By: #### T ROPHS, ANEU, CMP, GFR, MG, TSH, CAION, ADIFF, CBC ####[place] [address] [place] [address] PROon 05-08-2024 INR Coag (PPP) [Relative time] 1.5 {INR} Normal [facility] ([place]) Comment on above: Result Comment: [employer] (CHEST, 1991, 102:[id number])recommended therapeutic range for oral anticoagulant therapy is:LOW RISK: Prophylaxis of venous thrombosis INR: 2.0-3.0 Treatment of pulmonary embolism 2.0-3.0 Prevention of systemic embolism 2.0-3.0HIGH RISK: Mechanical prosthetic valves 2.5-3.5 Performed By: #### P RO ####[place] [address] PT Coag (PPP) [Time] 17.6 s High 9.0-14.4 [facility] ([place]) Comment on above: Result Comment: Effe ctive 06/02/08, Protime results may be affected by some antibiotics (i.e. Ciprofloxacin, Azithromycin, Bactrim) which may potentiate the action of oral anticoagulants, with further increases in Protime/INR. Performed By: #### P RO ####[place] [address] TROPHSon 05-08-2024 High Sensitivity Troponin I 15 ng/L Normal 0-54 [facility] ([place]) Comment on above: Result Comment: High Sensitive Troponin I Reference Ranges:Female: 0-34 ng/LMale: 0-54 ng/LTesting performed on Atell[employer]oet IM analyzer using direct chemiluminescent technology. Performed By: #### T MALVIN ####[place] [address] High Sensitivity Troponin I 14 ng/L Normal 0-54 [facility] ([place]) Comment on above: Result Comment: High Sensitive Troponin I Reference Ranges:Female: 0-34 ng/LMale: 0-54 ng/LTesting performed on [employer]ell[employer]oet IM analyzer using direct chemiluminescent technology. Performed By: #### T MALVIN ####[place] [address] High Sensitivity Troponin I 13 ng/L Normal 0-54 [facility] ([place]) Comment on above: Result Comment: High Sensitive Troponin I Reference Ranges:Female: 0-34 ng/LMale: 0-54 ng/LTesting performed on [employer] IM analyzer using direct chemiluminescent technology. Performed By: #### T ROPHS, ANEU, CMP, GFR, MG, TSH, CAION, ADIFF, CBC ####[address] [address] TSHon 05-08-2024 TSH 3.822 mIU/mL Normal 0.550-4.78 0 [facility] ([place]) Comment on above: Result Comment: No te - New Reference Range in effect 20 Performed By: #### T MALVIN, ANEU, CMP, GFR, MG, TSH, CAION, ADIFF, CBC ####[place] [address] XR CHEST 2 VIEWSon XR CHEST 2 VIEWS Normal [facility] ([place]) .Auto Diffon 05-07-2024 Basophil, Absolute 0.1 10 3/mcL Normal 0.0-0.2 [facility] ([place]) Comment on above: Performed By: #### A DIFF, BMP, ANEU, MDW, GFR, CBC, TROPHS, MG ####[place] [address] [place], [place] [address] Basophils/100 WBC (Bld) 0.7 % Normal 0.0-2.5 [facility] ([place]) Comment on above: Performed By: #### A DIFF, BMP, ANEU, MDW, GFR, CBC, TROPHS, MG ####[place] [address] [place], [place] [address] Eosinophil, Absolute 0.0 10 3/mcL Normal 0.0-0.4 [facility] ([place]) Comment on above: Performed By: #### A DIFF, BMP, ANEU, MDW, GFR, CBC, TROPHS, MG ####[place] [address] [place], [place] [address] Eosinophils/100 WBC (Bld) 0.0 % Normal 0.0-7.0 [facility] ([place]) Comment on above: Performed By: #### A DIFF, BMP, ANEU, MDW, GFR, CBC, TROPHS, MG ####[place] [address] [place], [place] [address] Lymphocyte, Absolute 0.5 10 3/mcL Low 0.8-3.9 [facility] ([place]) Comment on above: Performed By: #### A DIFF, BMP, ANEU, MDW, GFR, CBC, TROPHS, MG ####[place] [address] [place], [place] [address] Lymphocytes/100 WBC (Bld) 4.8 % Low 10.0-50.0 [facility] ([place]) Comment on above: Performed By: #### A DIFF, BMP, ANEU, MDW, GFR, CBC, TROPHS, MG ####[place] [address] [place], [place] [address] Monocyte, Absolute 0.8 10 3/mcL Normal 0.2-1.0 [facility] ([place]) Comment on above: Performed By: #### A DIFF, BMP, ANEU, MDW, GFR, CBC, TROPHS, MG ####[place] [address] [place], [place] [address] Monocytes/100 WBC (Bld) 7.3 % Normal 1.7-13.0 [facility] ([place]) Comment on above: Performed By: #### A DIFF, BMP, ANEU, MDW, GFR, CBC, TROPHS, MG ####[place] [address] [place], [place] [address] Neutrophils/100 WBC (Bld) 87.2 % High 37.0-80.0 [facility] ([place]) Comment on above: Performed By: #### A DIFF, BMP, ANEU, MDW, GFR, CBC, TROPHS, MG ####[place] [address] [place], [place] [address] .GFRon 05-07-2024 GFR Non- 24 ml/min/1.73sqm Normal [facility] ([place]) Comment on above: Result Comment: GFR Population mean for , Non- Americans Ages 20-29 = 116 mL/min/1.73 sq.m. Ages 30-39 = 107 mL/min/1.73 sq.m. Ages 40-49 = 99 mL/min/1.73 sq.m. Ages 50-59 = 93 mL/min/1.73 sq.m. Ages 60-69 = 85 mL/min/1.73 sq.m. Ages 70+ = 75 mL/min/1.73 sq.m.Chronic Kidney Disease: Less than 60 mL/min/1.73 square metersEnd Stage Renal Disease: Less than 15 mL/min/1.73 square meters Performed By: #### A DIFF, BMP, ANEU, MDW, GFR, CBC, TROPHS, MG ####[place] [address] [place], [place] [address] GFR 29 ml/min/1.73sqm Normal [facility] ([place]) Comment on above: Result Comment: GFR Population mean for , Non- Americans Ages 20-29 = 116 mL/min/1.73 sq.m. Ages 30-39 = 107 mL/min/1.73 sq.m. Ages 40-49 = 99 mL/min/1.73 sq.m. Ages 50-59 = 93 mL/min/1.73 sq.m. Ages 60-69 = 85 mL/min/1.73 sq.m. Ages 70+ = 75 mL/min/1.73 sq.m.Chronic Kidney Disease: Less than 60 mL/min/1.73 square metersEnd Stage Renal Disease: Less than 15 mL/min/1.73 square meters Performed By: #### A DIFF, BMP, ANEU, MDW, GFR, CBC, TROPHS, MG ####[place] [address] [place], [place] [address] .MDWon 05-07-2024 Monocyte Distribution Width 20.72 High 0.00-20.00 [facility] ([place]) Comment on above: Result Comment: For adults in ED, MDW>20.0 may be associated with a higher risk of sepsis during the first 12hrs of hospital admission Performed By: #### A DIFF, BMP, ANEU, MDW, GFR, CBC, TROPHS, MG ####[place] [address] [place], [place] [address] .NEUABSon 05-07-2024 Neutrophil, Absolute 9.7 10 3/mcL High 2.9-6.2 [facility] ([place]) Comment on above: Performed By: #### A DIFF, BMP, ANEU, MDW, GFR, CBC, TROPHS, MG ####[place] [address] [place], [place] [address] BMPon 05-07-2024 BUN/Creatinine Ratio 21 ratio Normal 7-27 [facility] ([place]) Comment on above: Performed By: #### A DIFF, BMP, ANEU, MDW, GFR, CBC, TROPHS, MG ####[place] [address] [place], [place] [address] Calcium [Mass/Vol] 7.9 mg/dL Low 8.4-10.2 [facility] ([place]) Comment on above: Performed By: #### A DIFF, BMP, ANEU, MDW, GFR, CBC, TROPHS, MG ####[place] [address] [place], [place] [address] Chloride [Moles/Vol] 99 mmol/L Normal 98-107 [facility] ([place]) Comment on above: Performed By: #### A DIFF, BMP, ANEU, MDW, GFR, CBC, TROPHS, MG ####[place] [address] [place], [place] [address] CO2 [Moles/Vol] 24 mmol/L Normal 22-29 [facility] ([place]) Comment on above: Performed By: #### A DIFF, BMP, ANEU, MDW, GFR, CBC, TROPHS, MG ####[place] [address] [place], [place] [address] Creatinine [Mass/Vol] 2.81 mg/dL High 0.70-1.30 [facility] ([place]) Comment on above: Performed By: #### A DIFF, BMP, ANEU, MDW, GFR, CBC, TROPHS, MG ####[place] [address] [place], [place] [address] Electrolyte Balance 12.0 mEq/L Normal 4.0-15.0 [facility] ([place]) Comment on above: Performed By: #### A DIFF, BMP, ANEU, MDW, GFR, CBC, TROPHS, MG ####[place] [address] [place], [place] [address] Glucose [Mass/Vol] 338 mg/dL High 70-105 [facility] ([place]) Comment on above: Performed By: #### A DIFF, BMP, ANEU, MDW, GFR, CBC, TROPHS, MG ####[place] [address] [place], [place] [address] Potassium [Moles/Vol] 4.0 mmol/L Normal 3.5-5.1 [facility] ([place]) Comment on above: Performed By: #### A DIFF, BMP, ANEU, MDW, GFR, CBC, TROPHS, MG ####[place] [address] [place], [place] [address] Sodium [Moles/Vol] 135 mmol/L Low 136-145 [facility] ([place]) Comment on above: Performed By: #### A DIFF, BMP, ANEU, MDW, GFR, CBC, TROPHS, MG ####[place] [address] [place], [place] [address] Urea nitrogen [Mass/Vol] 59 mg/dL High 7-18 [facility] ([place]) Comment on above: Performed By: #### A DIFF, BMP, ANEU, MDW, GFR, CBC, TROPHS, MG ####[place] [address] [place], [place] [address] CBCon 05-07-2024 Erythrocyte distribution width (RBC) [Ratio] 19.9 % High 11.5-14.5 [facility] ([place]) Comment on above: Performed By: #### A DIFF, BMP, ANEU, MDW, GFR, CBC, TROPHS, MG ####[place] [address] [place], [place] [address] Hematocrit (Bld) [Volume fraction] 30.9 % Low 42.0-52.0 [facility] ([place]) Comment on above: Performed By: #### A DIFF, BMP, ANEU, MDW, GFR, CBC, TROPHS, MG ####[place] [address] [place], [place] [address] Hgb 9.8 G/dL Low 14.0-18.0 [facility] ([place]) Comment on above: Performed By: #### A DIFF, BMP, ANEU, MDW, GFR, CBC, TROPHS, MG ####[place] [address] [place], [place] [address] MCH (RBC) [Entitic mass] 26.6 pg Low 27.0-31.2 [facility] ([place]) Comment on above: Performed By: #### A DIFF, BMP, ANEU, MDW, GFR, CBC, TROPHS, MG ####[place] [address] [place], [place] [address] MCHC 31.8 G/dL Normal 31.8-35.4 [facility] ([place]) Comment on above: Performed By: #### A DIFF, BMP, ANEU, MDW, GFR, CBC, TROPHS, MG ####[place] [address] [place], [place] [address] MCV (RBC) [Entitic vol] 83.7 fL Normal 80.0-94.0 [facility] ([place]) Comment on above: Performed By: #### A DIFF, BMP, ANEU, MDW, GFR, CBC, TROPHS, MG ####[place] [address] [place], [place] [address] Platelet 190 10 3/mcL Normal 130-400 [facility] ([place]) Comment on above: Performed By: #### A DIFF, BMP, ANEU, MDW, GFR, CBC, TROPHS, MG ####[place] [address] [place], [place] [address] Platelet mean volume (Bld) [Entitic vol] 7.7 fL Normal 7.4-10.4 [facility] ([place]) Comment on above: Performed By: #### A DIFF, BMP, ANEU, MDW, GFR, CBC, TROPHS, MG ####[place] [address] [place], [place] [address] RBC 3.69 10 6/mcL Low 4.04-6.13 [facility] ([place]) Comment on above: Performed By: #### A DIFF, BMP, ANEU, MDW, GFR, CBC, TROPHS, MG ####[place] [address] [place], [place] [address] WBC 11.2 10 3/mcL High 4.6-10.8 [facility] ([place]) Comment on above: Performed By: #### A DIFF, BMP, ANEU, MDW, GFR, CBC, TROPHS, MG ####[place] [address] [place], [place] [address] LABORATORYOrdered By: Nathalia Hayes on 05-07-2024 Glucose [Mass/Vol] 251 mg/dL High 70 - 110 mg/dL [facility] Work Phone: LABORATORYOrdered By: SYSTEM SYSTEM on 05-07-2024 Troponin I.cardiac DL <= 0.01 ng/mL [Mass/Vol] 11 ng/L Normal 0 - 76 ng/L AO ADM SS Comment on above: Interpretive Data: H igh Sensitive Troponin I Reference Ranges: Female: 0-51 ng/L Male: 0-76 ng/L Testing performed on [employer] using a homogeneous sandwich chemiluminescent immunoassay based on Trusper technology. Troponin I.cardiac DL <= 0.01 ng/mL [Mass/Vol] 13 ng/L Normal 0 - 76 ng/L AO ADM SS Comment on above: Interpretive Data: H igh Sensitive Troponin I Reference Ranges: Female: 0-51 ng/L Male: 0-76 ng/L Testing performed on [employer] using a homogeneous sandwich chemiluminescent immunoassay based on Trusper technology. Basophil, Absolute 0.1 103/mcL Normal 0.0 - 0.2 10^3/mcL AO Workflow SS Basophils/100 WBC (Bld) 0.7 % Normal 0.0 - 2.5 % AO Workflow SS Calcium [Mass/Vol] 7.9 mg/dL Low 8.4 - 10. 2 mg/dL AO ADM SS Chloride [Moles/Vol] 99 mmol/L Normal 98 - 10 7 mmol/L AO ADM SS CO2 [Moles/Vol] 24 mmol/L Normal 22 - 29 mmol/L AO ADM SS Creatinine [Mass/Vol] 2.81 mg/dL High 0.70 - 1.30 mg/dL AO ADM SS Electrolyte Balance 12.0 mEq/L Normal 4.0 - 15 .0 mEq/L AO ADM SS Eosinophil, Absolute 0.0 103/mcL Normal 0.0 - 0 .4 10^3/mcL AO Workflow SS Eosinophils/100 WBC (Bld) 0.0 % Normal 0.0 - 7.0 % AO Workflow SS Erythrocyte distribution width (RBC) [Ratio] 19.9 % High 11.5 - 14.5 % AO Workflow SS GFR/1.73 sq M.predicted among blacks MDRD (S/P/Bld) [Vol rate/Area] 29 ml/min/1.73sqm Invalid Interpretation Code AO Chemistry S Comment on above: Interpretive Data: GFR Population mean for , Non- Americans Ages 20-29 = 116 mL/min/1.73 sq.m. Ages 30-39 = 107 mL/min/1.73 sq.m. Ages 40-49 = 99 mL/min/1.73 sq.m. Ages 50-59 = 93 mL/min/1.73 sq.m. Ages 60-69 = 85 mL/min/1.73 sq.m. Ages 70+ = 75 mL/min/1.73 sq.m. Chronic Kidney Disease: Less than 60 mL/min/1.73 square meters End Stage Renal Disease: Less than 15 mL/min/1.73 square meters GFR/1.73 sq M.predicted among non-blacks MDRD (S/P/Bld) [Vol rate/Area] 24 ml/min/1.73sqm Invalid Interpretation Code AO Chemistry S Comment on above: Interpretive Data: GFR Population mean for , Non- Americans Ages 20-29 = 116 mL/min/1.73 sq.m. Ages 30-39 = 107 mL/min/1.73 sq.m. Ages 40-49 = 99 mL/min/1.73 sq.m. Ages 50-59 = 93 mL/min/1.73 sq.m. Ages 60-69 = 85 mL/min/1.73 sq.m. Ages 70+ = 75 mL/min/1.73 sq.m. Chronic Kidney Disease: Less than 60 mL/min/1.73 square meters End Stage Renal Disease: Less than 15 mL/min/1.73 square meters Glucose [Mass/Vol] 338 mg/dL High 70 - 105 mg/dL AO ADM SS Hematocrit (Bld) [Volume fraction] 30.9 % Low 42.0 - 52.0 % AO Workflow SS Hemoglobin (Bld) [Mass/Vol] 9.8 G/dL Low 14.0 - 18.0 G/dL AO Workflow SS Lymphocyte, Absolute 0.5 103/mcL Low 0.8 - 3 .9 10^3/mcL AO Workflow SS Lymphocytes/100 WBC (Bld) 4.8 % Low 10.0 - 50.0 % AO Workflow SS Magnesium [Mass/Vol] 1.5 mg/dL Low 1.8 - 2 .4 mg/dL AO ADM SS MCH (RBC) [Entitic mass] 26.6 pg Low 27.0 - 31.2 pg AO Workflow SS MCHC 31.8 G/dL Normal 31.8 - 35.4 G/dL AO Workflow SS MCV (RBC) [Entitic vol] 83.7 fL Normal 80.0 - 94.0 fL AO Workflow SS Monocyte distribution width Auto (Bld) [Entitic vol] 20.72 1 High 0.00 - 20.00 AO Workflow SS Comment on above: Result Comment: For adults in ED, MDW>20.0 may be associated with a higher risk of sepsis during the first 12hrs of hospital admission Monocyte, Absolute 0.8 103/mcL Normal 0.2 - 1.0 10^3/mcL AO Workflow SS Monocytes/100 WBC (Bld) 7.3 % Normal 1.7 - 13.0 % AO Workflow SS Neutrophil, Absolute 9.7 103/mcL High 2.9 - 6 .2 10^3/mcL AO Workflow SS Neutrophils/100 WBC (Bld) 87.2 % High 37.0 - 80.0 % AO Workflow SS Platelet mean volume (Bld) [Entitic vol] 7.7 fL Normal 7.4 - 10.4 fL AO Workflow SS Platelets (Bld) [#/Vol] 190 103/mcL Normal 130 - 400 10^3/mcL AO Workflow SS Potassium [Moles/Vol] 4.0 mmol/L Normal 3.5 - 5.1 mmol/L AO ADM SS RBC (Bld) [#/Vol] 3.69 106/mcL Low 4.04 - 6.13 10^6/mcL AO Workflow SS Sodium [Moles/Vol] 135 mmol/L Low 136 - 145 mmol/L AO ADM SS Troponin I.cardiac DL <= 0.01 ng/mL [Mass/Vol] 13 ng/L Normal 0 - 76 ng/L AO ADM SS Comment on above: Interpretive Data: H igh Sensitive Troponin I Reference Ranges: Female: 0-51 ng/L Male: 0-76 ng/L Testing performed on Dimension EXL using a homogeneous sandwich chemiluminescent immunoassay based on LOCI technology. Urea nitrogen [Mass/Vol] 59 mg/dL High 7 - 18 mg/dL AO ADM SS Urea nitrogen/Creatinine [Mass ratio] 21 ratio Normal 7 - 27 ratio AO ADM SS WBC (Bld) [#/Vol] 11.2 103/mcL High 4.6 - 10.8 10^3/mcL AO Workflow SS MGon 05-07-2024 Magnesium [Mass/Vol] 1.5 mg/dL Low 1.8-2.4 [facility] ([place]) Comment on above: Performed By: #### A CHAYO DELGADO, PERLITA CHOU, GFR, CBC, TROPHS, MG ###[place] [address] [place], [place] [address] TROPHSon 05-07-2024 High Sensitivity Troponin I 11 ng/L Normal 0-76 [facility] ([place]) Comment on above: Result Comment: High Sensitive Troponin I Reference Ranges:Female: 0-51 ng/LMale: 0-76 ng/LTesting performed on Dimension EXL using a homogeneous sandwich chemiluminescent immunoassay based on LOCI technology. Performed By: ###Idania COOMBS ####[place] [address] [place], [place] [address] High Sensitivity Troponin I 13 ng/L Normal 0-76 [facility] ([place]) Comment on above: Result Comment: High Sensitive Troponin I Reference Ranges:Female: 0-51 ng/LMale: 0-76 ng/LTesting performed on Dimension EXL using a homogeneous sandwich chemiluminescent immunoassay based on LOCI technology. Performed By: ###Idania COOMBS ####[place] [address] [place], [place] [address] High Sensitivity Troponin I 13 ng/L Normal 0-76 [facility] ([place]) Comment on above: Result Comment: High Sensitive Troponin I Reference Ranges:Female: 0-51 ng/LMale: 0-76 ng/LTesting performed on Dimension EXL using a homogeneous sandwich chemiluminescent immunoassay based on LOCI technology. Performed By: #### A DIFF, BMP, JOSÉ ANTONIO, PERLITA, GFR, CBC, TROPHS, MG ####[facility] [place], [place] [address] XR CHEST 1 VIEWon 05-07-2024 XR CHEST 1 VIEW Normal [facility] ([place]) .Auto Diffon 05-06-2024 Basophil, Absolute 0.1 10 3/mcL Normal 0.0-0.3 [facility] ([place]) Comment on above: Performed By: #### B MP, GFR, ADIFF, ANEU, CBC ####[address] [address] Basophils/100 WBC (Bld) 0.9 % Normal 0.0-2.5 [facility] ([place]) Comment on above: Performed By: #### B MP, GFR, ADIFF, ANEU, CBC ####[address] [address] Eosinophil, Absolute 0.2 10 3/mcL Normal 0.0-0.7 [facility] ([place]) Comment on above: Performed By: #### B MP, GFR, ADIFF, ANEU, CBC ####[address] [address] Eosinophils/100 WBC (Bld) 1.8 % Normal 0.0-6.0 [facility] ([place]) Comment on above: Performed By: #### B MP, GFR, ADIFF, ANEU, CBC ####[address] [address] Lymphocyte, Absolute 1.6 10 3/mcL Normal 0.9-4.3 [facility] ([place]) Comment on above: Performed By: #### B MP, GFR, ADIFF, ANEU, CBC ####[address] [address] Lymphocytes/100 WBC (Bld) 15.9 % Low 20.0-40.0 [facility] ([place]) Comment on above: Performed By: #### B MP, GFR, ADIFF, ANEU, CBC ####[address] [address] Monocyte, Absolute 1.0 10 3/mcL Normal 0.1-1.4 [facility] ([place]) Comment on above: Performed By: #### B MP, GFR, ADIFF, ANEU, CBC ####[address] [address] Monocytes/100 WBC (Bld) 10.4 % Normal 2.0-13.0 [facility] ([place]) Comment on above: Performed By: #### B MP, GFR, ADIFF, ANEU, CBC ####[address] [address] Neutrophils/100 WBC (Bld) 71.0 % Normal 50.0-75.0 [facility] ([place]) Comment on above: Performed By: #### B MP, GFR, ADIFF, ANEU, CBC ####[address] [address] .GFRon 05-06-2024 GFR 35 ml/min/1.73sqm Normal [facility] ([place]) Comment on above: Result Comment: GFR Population mean for , Non- Americans Ages 20-29 = 116 mL/min/1.73 sq.m. Ages 30-39 = 107 mL/min/1.73 sq.m. Ages 40-49 = 99 mL/min/1.73 sq.m. Ages 50-59 = 93 mL/min/1.73 sq.m. Ages 60-69 = 85 mL/min/1.73 sq.m. Ages 70+ = 75 mL/min/1.73 sq.m.Chronic Kidney Disease: Less than 60 mL/min/1.73 square metersEnd Stage Renal Disease: Less than 15 mL/min/1.73 square meters Performed By: #### B MP, GFR, ADIFF, ANEU, CBC ####[address] [address] GFR Non- 29 ml/min/1.73sqm Normal [facility] ([place]) Comment on above: Result Comment: GFR Population mean for , Non- Americans Ages 20-29 = 116 mL/min/1.73 sq.m. Ages 30-39 = 107 mL/min/1.73 sq.m. Ages 40-49 = 99 mL/min/1.73 sq.m. Ages 50-59 = 93 mL/min/1.73 sq.m. Ages 60-69 = 85 mL/min/1.73 sq.m. Ages 70+ = 75 mL/min/1.73 sq.m.Chronic Kidney Disease: Less than 60 mL/min/1.73 square metersEnd Stage Renal Disease: Less than 15 mL/min/1.73 square meters Performed By: #### B MP, GFR, ADIFF, ANEU, CBC ####[address] [address] .NEUABSon 05-06-2024 Neutrophil, Absolute 7.0 10 3/mcL Normal 2.3-8.1 [facility] ([place]) Comment on above: Performed By: #### B MP, GFR, ADIFF, ANEU, CBC ####[address] [address] BMPon 05-06-2024 BUN/Creatinine Ratio 21.1 ratio Normal 10.0-22.0 [facility] ([place]) Comment on above: Performed By: #### B MP, GFR, ADIFF, ANEU, CBC ####[address] [address] Calcium [Mass/Vol] 7.6 mg/dL Low 8.7-10.4 [facility] ([place]) Comment on above: Performed By: #### B MP, GFR, ADIFF, ANEU, CBC ####[address] [address] Chloride [Moles/Vol] 106 mmol/L Normal 98-110 [facility] ([place]) Comment on above: Performed By: #### B MP, GFR, ADIFF, ANEU, CBC ####[address] [address] CO2 [Moles/Vol] 20 mmol/L Low 22-32 [facility] ([place]) Comment on above: Performed By: #### B MP, GFR, ADIFF, ANEU, CBC ####[address] [address] Creatinine [Mass/Vol] 2.42 mg/dL High 0.60-1.40 [facility] ([place]) Comment on above: Performed By: #### B MP, GFR, ADIFF, ANEU, CBC ####[place] [address] Electrolyte Balance 11.0 mEq/L Normal 4.0-15.0 [facility] ([place]) Comment on above: Performed By: #### B MP, GFR, ADIFF, ANEU, CBC ####[place] [address] Glucose [Mass/Vol] 203 mg/dL High 70-110 [facility] ([place]) Comment on above: Performed By: #### B MP, GFR, ADIFF, ANEU, CBC ####[place] [address] Potassium [Moles/Vol] 4.1 mmol/L Normal 3.5-5.0 [facility] ([place]) Comment on above: Performed By: #### B MP, GFR, ADIFF, ANEU, CBC ####[place] [address] Sodium [Moles/Vol] 137 mmol/L Normal 136-145 [facility] ([place]) Comment on above: Performed By: #### B MP, GFR, ADIFF, ANEU, CBC ####[place] [address] Urea nitrogen [Mass/Vol] 51.0 mg/dL High 8.0-22.0 [facility] ([place]) Comment on above: Performed By: #### B MP, GFR, ADIFF, ANEU, CBC ####[place] [address] CBCon 05-06-2024 Erythrocyte distribution width (RBC) [Ratio] 19.5 % High 11.5-15.5 [facility] ([place]) Comment on above: Performed By: #### B MP, GFR, ADIFF, ANEU, CBC ####[place] [address] Hematocrit (Bld) [Volume fraction] 28.8 % Low 40.0-52.0 [facility] ([place]) Comment on above: Performed By: #### B MP, GFR, ADIFF, ANEU, CBC ####[place] [address] Hgb 9.5 G/dL Low 13.0-17.5 [facility] ([place]) Comment on above: Performed By: #### B MP, GFR, ADIFF, ANEU, CBC ####[place] [address] MCH (RBC) [Entitic mass] 27.3 pg Normal 27.0-33.0 [facility] ([place]) Comment on above: Performed By: #### B MP, GFR, ADIFF, ANEU, CBC ####[place] [address] MCHC 32.9 G/dL Normal 32.0-36.0 [facility] ([place]) Comment on above: Performed By: #### B MP, GFR, ADIFF, ANEU, CBC ####[place] [address] MCV (RBC) [Entitic vol] 82.9 fL Normal 81.0-100.0 [facility] ([place]) Comment on above: Performed By: #### B MP, GFR, ADIFF, ANEU, CBC ####[place] [address] Platelet 189 10 3/mcL Normal 150-450 [facility] ([place]) Comment on above: Performed By: #### B MP, GFR, ADIFF, ANEU, CBC ####[place] [address] Platelet mean volume (Bld) [Entitic vol] 7.7 fL Normal 6.4-10.5 [facility] ([place]) Comment on above: Performed By: #### B MP, GFR, ADIFF, ANEU, CBC ####[place] [address] RBC 3.48 10 6/mcL Low 4.50-6.00 [facility] ([place]) Comment on above: Performed By: #### B MP, GFR, ADIFF, ANEU, CBC ####[place] [address] WBC 9.9 10 3/mcL Normal 4.5-10.8 [facility] ([place]) Comment on above: Performed By: #### B MP, GFR, JOSE, ANEU, CBC ####[place] [id number] [place] [address] LABORATORYOrdered By: Hua Kulkarni on 05-06-2024 Glucose [Mass/Vol] 53 mg/dL Low 70 - 110 mg/dL [facility] Work Phone: LABORATORYOrdered By: Richmond Valadez on 05-06-2024 Blood Glucose Testing Reason Routine (05/06/24 4:39 PM) [facility] Work Phone: Glucose [Mass/Vol] 116 mg/dL High 70 - 110 mg/dL [facility] Work Phone: LABORATORYOrdered By: Renny Martinez on 05-06-2024 Glucose [Mass/Vol] 138 mg/dL High 70 - 110 mg/dL [facility] Work Phone: LABORATORYOrdered By: Lakeisha Yañez on 05-06-2024 Blood Glucose Testing Reason Routine (05/06/24 7:54 AM) [facility] Work Phone: LABORATORYOrdered By: SYSTEM SYSTEM on 05-06-2024 Basophils (Bld) [#/Vol] 0.1 103/mcL Normal 0.0 - 0.3 10^3/mcL Workflow SS Basophils/100 WBC (Bld) 0.9 % Normal 0.0 - 2.5 % Workflow SS Calcium [Mass/Vol] 7.6 mg/dL Low 8.7 - 10. 4 mg/dL ADM SS Chloride [Moles/Vol] 106 mmol/L Normal 98 - 11 0 mEq/L ADM SS CO2 [Moles/Vol] 20 mmol/L Low 22 - 32 mEq/L ADM SS Creatinine [Mass/Vol] 2.42 mg/dL High 0.60 - 1.40 mg/dL ADM SS Electrolyte Balance 11.0 mEq/L Normal 4.0 - 15 .0 mEq/L ADM SS Eosinophils (Bld) [#/Vol] 0.2 103/mcL Normal 0.0 - 0.7 10^3/mcL Workflow SS Eosinophils/100 WBC (Bld) 1.8 % Normal 0.0 - 6.0 % Workflow SS Erythrocyte distribution width (RBC) [Ratio] 19.5 % High 11.5 - 15.5 % Workflow SS GFR/1.73 sq M.predicted among blacks MDRD (S/P/Bld) [Vol rate/Area] 35 ml/min/1.73sqm Invalid Interpretation Code Chemistry S Comment on above: Interpretive Data: GFR Population mean for , Non- Americans Ages 20-29 = 116 mL/min/1.73 sq.m. Ages 30-39 = 107 mL/min/1.73 sq.m. Ages 40-49 = 99 mL/min/1.73 sq.m. Ages 50-59 = 93 mL/min/1.73 sq.m. Ages 60-69 = 85 mL/min/1.73 sq.m. Ages 70+ = 75 mL/min/1.73 sq.m. Chronic Kidney Disease: Less than 60 mL/min/1.73 square meters End Stage Renal Disease: Less than 15 mL/min/1.73 square meters GFR/1.73 sq M.predicted among non-blacks MDRD (S/P/Bld) [Vol rate/Area] 29 ml/min/1.73sqm Invalid Interpretation Code Chemistry S Comment on above: Interpretive Data: GFR Population mean for , Non- Americans Ages 20-29 = 116 mL/min/1.73 sq.m. Ages 30-39 = 107 mL/min/1.73 sq.m. Ages 40-49 = 99 mL/min/1.73 sq.m. Ages 50-59 = 93 mL/min/1.73 sq.m. Ages 60-69 = 85 mL/min/1.73 sq.m. Ages 70+ = 75 mL/min/1.73 sq.m. Chronic Kidney Disease: Less than 60 mL/min/1.73 square meters End Stage Renal Disease: Less than 15 mL/min/1.73 square meters Glucose [Mass/Vol] 203 mg/dL High 70 - 110 mg/dL ADM SS Hematocrit (Bld) [Volume fraction] 28.8 % Low 40.0 - 52.0 % Workflow SS Hemoglobin (Bld) [Mass/Vol] 9.5 G/dL Low 13.0 - 17.5 G/dL AH Workflow SS Lymphocytes (Bld) [#/Vol] 1.6 103/mcL Normal 0.9 - 4.3 10^3/mcL AH Workflow SS Lymphocytes/100 WBC (Bld) 15.9 % Low 20.0 - 40.0 % AH Workflow SS MCH (RBC) [Entitic mass] 27.3 pg Normal 27.0 - 33.0 pg AH Workflow SS MCHC 32.9 G/dL Normal 32.0 - 36.0 G/dL AH Workflow SS MCV (RBC) [Entitic vol] 82.9 fL Normal 81.0 - 100.0 fL AH Workflow SS Monocytes (Bld) [#/Vol] 1.0 103/mcL Normal 0.1 - 1.4 10^3/mcL AH Workflow SS Monocytes/100 WBC (Bld) 10.4 % Normal 2.0 - 13.0 % AH Workflow SS Neutrophils (Bld) [#/Vol] 7.0 103/mcL Normal 2.3 - 8.1 10^3/mcL AH Workflow SS Neutrophils/100 WBC (Bld) 71.0 % Normal 50.0 - 75.0 % AH Workflow SS Platelet mean volume (Bld) [Entitic vol] 7.7 fL Normal 6.4 - 10.5 fL AH Workflow SS Platelets (Bld) [#/Vol] 189 103/mcL Normal 150 - 450 10^3/mcL AH Workflow SS Potassium [Moles/Vol] 4.1 mmol/L Normal 3.5 - 5.0 mEq/L ADM SS RBC (Bld) [#/Vol] 3.48 106/mcL Low 4.50 - 6.00 10^6/mcL AH Workflow SS Sodium [Moles/Vol] 137 mmol/L Normal 136 - 145 mEq/L ADM SS Urea nitrogen [Mass/Vol] 51.0 mg/dL High 8.0 - 22.0 mg/dL ADM SS Urea nitrogen/Creatinine [Mass ratio] 21.1 ratio Normal 10.0 - 22.0 ratio ADM SS WBC (Bld) [#/Vol] 9.9 103/mcL Normal 4.5 - 10.8 10^3/mcL AH Workflow SS LABORATORYOrdered By: Elsy castellon on 06-17-2024 Blood Glucose Testing Reason Routine (05/05/24 9:30 PM) [facility] Work Phone: No Panel Informationon 05-05 Culture Wound Deep Panel Culture results pending. [facility] Work Phone: Culture Wound Deep Panel No growth to date [facility] Work Phone: GS Rare Gram Positive C occi Rare Gram Positive Rods [facility] Work Phone: .Auto Diffon 05-04-2024 Basophil, Absolute 0.1 10 3/mcL Normal 0.0-0.3 [facility] ([place]) Comment on above: Performed By: #### C BC, BMP, ANEU, GFR, ADIFF ####[address] [address] Basophils/100 WBC (Bld) 1.3 % Normal 0.0-2.5 [facility] ([place]) Comment on above: Performed By: #### C BC, BMP, ANEU, GFR, ADIFF ####[address] [address] Eosinophil, Absolute 0.2 10 3/mcL Normal 0.0-0.7 [facility] ([place]) Comment on above: Performed By: #### C BC, BMP, ANEU, GFR, ADIFF ####[address] [address] Eosinophils/100 WBC (Bld) 2.1 % Normal 0.0-6.0 [facility] ([place]) Comment on above: Performed By: #### C BC, BMP, ANEU, GFR, ADIFF ####[address] [address] Lymphocyte, Absolute 1.5 10 3/mcL Normal 0.9-4.3 [facility] ([place]) Comment on above: Performed By: #### C BC, BMP, ANEU, GFR, ADIFF ####[address] [address] Lymphocytes/100 WBC (Bld) 18.9 % Low 20.0-40.0 [facility] ([place]) Comment on above: Performed By: #### C BC, BMP, ANEU, GFR, ADIFF ####[place] [id number] [place] [address] Monocyte, Absolute 0.9 10 3/mcL Normal 0.1-1.4 [facility] ([place]) Comment on above: Performed By: #### C BC, BMP, ANEU, GFR, ADIFF ####[address] [address] Monocytes/100 WBC (Bld) 11.7 % Normal 2.0-13.0 [facility] ([place]) Comment on above: Performed By: #### C BC, BMP, ANEU, GFR, ADIFF ####[address] [address] Neutrophils/100 WBC (Bld) 66.0 % Normal 50.0-75.0 [facility] ([place]) Comment on above: Performed By: #### C BC, BMP, ANEU, GFR, ADIFF ####[address] [address] .GFRon 05-04-2024 GFR 40 ml/min/1.73sqm Normal [facility] ([place]) Comment on above: Result Comment: GFR Population mean for , Non- Americans Ages 20-29 = 116 mL/min/1.73 sq.m. Ages 30-39 = 107 mL/min/1.73 sq.m. Ages 40-49 = 99 mL/min/1.73 sq.m. Ages 50-59 = 93 mL/min/1.73 sq.m. Ages 60-69 = 85 mL/min/1.73 sq.m. Ages 70+ = 75 mL/min/1.73 sq.m.Chronic Kidney Disease: Less than 60 mL/min/1.73 square metersEnd Stage Renal Disease: Less than 15 mL/min/1.73 square meters Performed By: #### C BC, BMP, ANEU, GFR, ADIFF ####[address] [address] GFR Non- 33 ml/min/1.73sqm Normal [facility] ([place]) Comment on above: Result Comment: GFR Population mean for , Non- Americans Ages 20-29 = 116 mL/min/1.73 sq.m. Ages 30-39 = 107 mL/min/1.73 sq.m. Ages 40-49 = 99 mL/min/1.73 sq.m. Ages 50-59 = 93 mL/min/1.73 sq.m. Ages 60-69 = 85 mL/min/1.73 sq.m. Ages 70+ = 75 mL/min/1.73 sq.m.Chronic Kidney Disease: Less than 60 mL/min/1.73 square metersEnd Stage Renal Disease: Less than 15 mL/min/1.73 square meters Performed By: #### C BC, BMP, ANEU, GFR, ADIFF ####[place] [id number] [place] [address] .NEUABSon 05-04-2024 Neutrophil, Absolute 5.2 10 3/mcL Normal 2.3-8.1 [facility] ([place]) Comment on above: Performed By: #### C BC, BMP, ANEU, GFR, ADIFF ####[address] [address] BMPon 05-04-2024 BUN/Creatinine Ratio 21.8 ratio Normal 10.0-22.0 [facility] ([place]) Comment on above: Performed By: #### C BC, BMP, ANEU, GFR, ADIFF ####[address] [address] Calcium [Mass/Vol] 7.2 mg/dL Low 8.7-10.4 [facility] ([place]) Comment on above: Performed By: #### C BC, BMP, ANEU, GFR, ADIFF ####[address] [address] Chloride [Moles/Vol] 106 mmol/L Normal 98-110 [facility] ([place]) Comment on above: Performed By: #### C BC, BMP, ANEU, GFR, ADIFF ####[address] [address] CO2 [Moles/Vol] 22 mmol/L Normal 22-32 [facility] ([place]) Comment on above: Performed By: #### C BC, BMP, ANEU, GFR, ADIFF ####[place] [address] Creatinine [Mass/Vol] 2.16 mg/dL High 0.60-1.40 [facility] ([place]) Comment on above: Performed By: #### C BC, BMP, ANEU, GFR, ADIFF ####[place] [address] Electrolyte Balance 8.0 mEq/L Normal 4.0-15.0 [facility] ([place]) Comment on above: Performed By: #### C BC, BMP, ANEU, GFR, ADIFF ####[place] [address] Glucose [Mass/Vol] 255 mg/dL High 70-110 [facility] ([place] Comment on above: Performed By: #### C BC, BMP, ANEU, GFR, ADIFF ####[place] [address] Potassium [Moles/Vol] 4.1 mmol/L Normal 3.5-5.0 [facility] ([place]) Comment on above: Performed By: #### C BC, BMP, ANEU, GFR, ADIFF ####[place] [address] Sodium [Moles/Vol] 136 mmol/L Normal 136-145 [facility] ([place] Comment on above: Performed By: #### C BC, BMP, ANEU, GFR, ADIFF ####[place] [address] Urea nitrogen [Mass/Vol] 47.0 mg/dL High 8.0-22.0 [facility] ([place]) Comment on above: Performed By: #### C BC, BMP, ANEU, GFR, ADIFF ####[place] [address] CBCon 05-04-2024 Erythrocyte distribution width (RBC) [Ratio] 18.8 % High 11.5-15.5 [facility] ([place]) Comment on above: Performed By: #### C BC, BMP, ANEU, GFR, ADIFF ####[place] [id number] Hematocrit (Bld) [Volume fraction] 29.1 % Low 40.0-52.0 [facility] ([place]) Comment on above: Performed By: #### C BC, BMP, ANEU, GFR, ADIFF ####[place] [address] Hgb 9.7 G/dL Low 13.0-17.5 [facility] ([place]) Comment on above: Performed By: #### C BC, BMP, ANEU, GFR, ADIFF ####[place] [address] MCH (RBC) [Entitic mass] 27.4 pg Normal 27.0-33.0 [facility] ([place]) Comment on above: Performed By: #### C BC, BMP, ANEU, GFR, ADIFF ####[place] [address] MCHC 33.2 G/dL Normal 32.0-36.0 [facility] ([place]) Comment on above: Performed By: #### C BC, BMP, ANEU, GFR, ADIFF ####[place] [address] MCV (RBC) [Entitic vol] 82.5 fL Normal 81.0-100.0 [facility] ([place]) Comment on above: Performed By: #### C BC, BMP, ANEU, GFR, ADIFF ####[place] [address] Platelet 295 10 3/mcL Normal 150-450 [facility] ([place]) Comment on above: Performed By: #### C BC, BMP, ANEU, GFR, ADIFF ####[place] [address] Platelet mean volume (Bld) [Entitic vol] 7.4 fL Normal 6.4-10.5 [facility] ([place]) Comment on above: Performed By: #### C BC, BMP, ANEU, GFR, ADIFF ####[place] [address] RBC 3.53 10 6/mcL Low 4.50-6.00 [facility] ([place]) Comment on above: Performed By: #### C BC, BMP, ANEU, GFR, ADIFF ####[facility] [place] [address] WBC 7.9 10 3/mcL Normal 4.5-10.8 [facility] ([place]) Comment on above: Performed By: #### C BC, BMP, ANEU, GFR, ADIFF ####[facility] [place] [address] LABORATORYOrdered By: SYSTEM SYSTEM on 05-04-2024 Basophils (Bld) [#/Vol] 0.1 103/mcL Normal 0.0 - 0.3 10^3/mcL Workflow SS Basophils/100 WBC (Bld) 1.3 % Normal 0.0 - 2.5 % Workflow SS Calcium [Mass/Vol] 7.2 mg/dL Low 8.7 - 10. 4 mg/dL ADM SS Chloride [Moles/Vol] 106 mmol/L Normal 98 - 11 0 mEq/L ADM SS CO2 [Moles/Vol] 22 mmol/L Normal 22 - 32 mEq/L ADM SS Creatinine [Mass/Vol] 2.16 mg/dL High 0.60 - 1.40 mg/dL ADM SS Electrolyte Balance 8.0 mEq/L Normal 4.0 - 15 .0 mEq/L ADM SS Eosinophils (Bld) [#/Vol] 0.2 103/mcL Normal 0.0 - 0.7 10^3/mcL AH Workflow SS Eosinophils/100 WBC (Bld) 2.1 % Normal 0.0 - 6.0 % AH Workflow SS Erythrocyte distribution width (RBC) [Ratio] 18.8 % High 11.5 - 15.5 % AH Workflow SS GFR/1.73 sq M.predicted among blacks MDRD (S/P/Bld) [Vol rate/Area] 40 ml/min/1.73sqm Invalid Interpretation Code Chemistry S Comment on above: Interpretive Data: GFR Population mean for , Non- Americans Ages 20-29 = 116 mL/min/1.73 sq.m. Ages 30-39 = 107 mL/min/1.73 sq.m. Ages 40-49 = 99 mL/min/1.73 sq.m. Ages 50-59 = 93 mL/min/1.73 sq.m. Ages 60-69 = 85 mL/min/1.73 sq.m. Ages 70+ = 75 mL/min/1.73 sq.m. Chronic Kidney Disease: Less than 60 mL/min/1.73 square meters End Stage Renal Disease: Less than 15 mL/min/1.73 square meters GFR/1.73 sq M.predicted among non-blacks MDRD (S/P/Bld) [Vol rate/Area] 33 ml/min/1.73sqm Invalid Interpretation Code Chemistry S Comment on above: Interpretive Data: GFR Population mean for , Non- Americans Ages 20-29 = 116 mL/min/1.73 sq.m. Ages 30-39 = 107 mL/min/1.73 sq.m. Ages 40-49 = 99 mL/min/1.73 sq.m. Ages 50-59 = 93 mL/min/1.73 sq.m. Ages 60-69 = 85 mL/min/1.73 sq.m. Ages 70+ = 75 mL/min/1.73 sq.m. Chronic Kidney Disease: Less than 60 mL/min/1.73 square meters End Stage Renal Disease: Less than 15 mL/min/1.73 square meters Glucose [Mass/Vol] 255 mg/dL High 70 - 110 mg/dL ADM SS Hematocrit (Bld) [Volume fraction] 29.1 % Low 40.0 - 52.0 % AH Workflow SS Hemoglobin (Bld) [Mass/Vol] 9.7 G/dL Low 13.0 - 17.5 G/dL AH Workflow SS Lymphocytes (Bld) [#/Vol] 1.5 103/mcL Normal 0.9 - 4.3 10^3/mcL AH Workflow SS Lymphocytes/100 WBC (Bld) 18.9 % Low 20.0 - 40.0 % AH Workflow SS MCH (RBC) [Entitic mass] 27.4 pg Normal 27.0 - 33.0 pg AH Workflow SS MCHC 33.2 G/dL Normal 32.0 - 36.0 G/dL Workflow SS MCV (RBC) [Entitic vol] 82.5 fL Normal 81.0 - 100.0 fL Workflow SS Monocytes (Bld) [#/Vol] 0.9 103/mcL Normal 0.1 - 1.4 10^3/mcL AH Workflow SS Monocytes/100 WBC (Bld) 11.7 % Normal 2.0 - 13.0 % AH Workflow SS Neutrophils (Bld) [#/Vol] 5.2 103/mcL Normal 2.3 - 8.1 10^3/mcL AH Workflow SS Neutrophils/100 WBC (Bld) 66.0 % Normal 50.0 - 75.0 % AH Workflow SS Platelet mean volume (Bld) [Entitic vol] 7.4 fL Normal 6.4 - 10.5 fL AH Workflow SS Platelets (Bld) [#/Vol] 295 103/mcL Normal 150 - 450 10^3/mcL AH Workflow SS Potassium [Moles/Vol] 4.1 mmol/L Normal 3.5 - 5.0 mEq/L AH ADM SS RBC (Bld) [#/Vol] 3.53 106/mcL Low 4.50 - 6.00 10^6/mcL AH Workflow SS Sodium [Moles/Vol] 136 mmol/L Normal 136 - 145 mEq/L ADM SS Urea nitrogen [Mass/Vol] 47.0 mg/dL High 8.0 - 22.0 mg/dL ADM SS Urea nitrogen/Creatinine [Mass ratio] 21.8 ratio Normal 10.0 - 22.0 ratio AH ADM SS WBC (Bld) [#/Vol] 7.9 103/mcL Normal 4.5 - 10.8 10^3/mcL AH Workflow SS .Auto Diffon 05-03-2024 Basophil, Absolute 0.1 10 3/mcL Normal 0.0-0.3 [facility] ([place]) Comment on above: Performed By: #### A DIFF, MG, BMP, CBC, GFR, ANEU ####[address] [address] Basophils/100 WBC (Bld) 0.9 % Normal 0.0-2.5 [facility] ([place]) Comment on above: Performed By: #### A DIFF, MG, BMP, CBC, GFR, ANEU ####[address] [address] Eosinophil, Absolute 0.1 10 3/mcL Normal 0.0-0.7 [facility] ([place]) Comment on above: Performed By: #### A DIFF, MG, BMP, CBC, GFR, ANEU ####[address] [address] Eosinophils/100 WBC (Bld) 1.8 % Normal 0.0-6.0 [facility] ([place]) Comment on above: Performed By: #### A DIFF, MG, BMP, CBC, GFR, ANEU ####[address] [address] Lymphocyte, Absolute 1.5 10 3/mcL Normal 0.9-4.3 [facility] ([place]) Comment on above: Performed By: #### A DIFF, MG, BMP, CBC, GFR, ANEU ####[address] [address] Lymphocytes/100 WBC (Bld) 17.8 % Low 20.0-40.0 [facility] ([place]) Comment on above: Performed By: #### A DIFF, MG, BMP, CBC, GFR, ANEU ####[address] [address] Monocyte, Absolute 0.9 10 3/mcL Normal 0.1-1.4 [facility] ([place]) Comment on above: Performed By: #### A DIFF, MG, BMP, CBC, GFR, ANEU ####[address] [address] Monocytes/100 WBC (Bld) 10.6 % Normal 2.0-13.0 [facility] ([place]) Comment on above: Performed By: #### A DIFF, MG, BMP, CBC, GFR, ANEU ####[address] [address] Neutrophils/100 WBC (Bld) 68.9 % Normal 50.0-75.0 [facility] ([place]) Comment on above: Performed By: #### A DIFF, MG, BMP, CBC, GFR, ANEU ####[address] [address] .GFRon 05-03-2024 GFR 44 ml/min/1.73sqm Normal [facility] ([place]) Comment on above: Result Comment: GFR Population mean for , Non- Americans Ages 20-29 = 116 mL/min/1.73 sq.m. Ages 30-39 = 107 mL/min/1.73 sq.m. Ages 40-49 = 99 mL/min/1.73 sq.m. Ages 50-59 = 93 mL/min/1.73 sq.m. Ages 60-69 = 85 mL/min/1.73 sq.m. Ages 70+ = 75 mL/min/1.73 sq.m.Chronic Kidney Disease: Less than 60 mL/min/1.73 square metersEnd Stage Renal Disease: Less than 15 mL/min/1.73 square meters Performed By: #### A DIFF, MG, BMP, CBC, GFR, ANEU ####[address] [address] GFR Non- 37 ml/min/1.73sqm Normal [facility] ([place]) Comment on above: Result Comment: GFR Population mean for , Non- Americans Ages 20-29 = 116 mL/min/1.73 sq.m. Ages 30-39 = 107 mL/min/1.73 sq.m. Ages 40-49 = 99 mL/min/1.73 sq.m. Ages 50-59 = 93 mL/min/1.73 sq.m. Ages 60-69 = 85 mL/min/1.73 sq.m. Ages 70+ = 75 mL/min/1.73 sq.m.Chronic Kidney Disease: Less than 60 mL/min/1.73 square metersEnd Stage Renal Disease: Less than 15 mL/min/1.73 square meters Performed By: #### A DIFF, MG, BMP, CBC, GFR, ANEU ####[address] [address] .NEUABSon 05-03-2024 Neutrophil, Absolute 5.8 10 3/mcL Normal 2.3-8.1 [facility] ([place]) Comment on above: Performed By: #### A DIFF, MG, BMP, CBC, GFR, ANEU ####[address] [address] BMPon 05-03-2024 BUN/Creatinine Ratio 21.3 ratio Normal 10.0-22.0 [facility] ([place]) Comment on above: Performed By: #### A DIFF, MG, BMP, CBC, GFR, ANEU ####[place] [address] Calcium [Mass/Vol] 7.9 mg/dL Low 8.7-10.4 [facility] ([place]) Comment on above: Performed By: #### A DIFF, MG, BMP, CBC, GFR, ANEU ####[place] [address] Chloride [Moles/Vol] 107 mmol/L Normal 98-110 [facility] ([place]) Comment on above: Performed By: #### A DIFF, MG, BMP, CBC, GFR, ANEU ####[place] [address] CO2 [Moles/Vol] 23 mmol/L Normal 22-32 [facility] ([place]) Comment on above: Performed By: #### A DIFF, MG, BMP, CBC, GFR, ANEU ####[place] [address] Creatinine [Mass/Vol] 1.97 mg/dL High 0.60-1.40 [facility] ([place]) Comment on above: Performed By: #### A DIFF, MG, BMP, CBC, GFR, ANEU ####[place] [address] Electrolyte Balance 9.0 mEq/L Normal 4.0-15.0 [facility] ([place]) Comment on above: Performed By: #### A DIFF, MG, BMP, CBC, GFR, ANEU ####[place] [address] Glucose [Mass/Vol] 185 mg/dL High 70-110 [facility] ([place]) Comment on above: Performed By: #### A DIFF, MG, BMP, CBC, GFR, ANEU ####[place] [address] Potassium [Moles/Vol] 4.0 mmol/L Normal 3.5-5.0 [facility] ([place]) Comment on above: Performed By: #### A DIFF, MG, BMP, CBC, GFR, ANEU ####[place] [address] Sodium [Moles/Vol] 139 mmol/L Normal 136-145 [facility] ([place] Comment on above: Performed By: #### A DIFF, MG, BMP, CBC, GFR, ANEU ####[place] [address] Urea nitrogen [Mass/Vol] 42.0 mg/dL High 8.0-22.0 [facility] ([place]) Comment on above: Performed By: #### A DIFF, MG, BMP, CBC, GFR, ANEU ####[place] [address] CBCon 05-03-2024 Erythrocyte distribution width (RBC) [Ratio] 18.2 % High 11.5-15.5 [facility] ([place]) Comment on above: Performed By: #### A DIFF, MG, BMP, CBC, GFR, ANEU ####[place] [address] Hematocrit (Bld) [Volume fraction] 29.9 % Low 40.0-52.0 [facility] ([place]) Comment on above: Performed By: #### A DIFF, MG, BMP, CBC, GFR, ANEU ####[place] [address] Hgb 10.1 G/dL Low 13.0-17.5 [facility] ([place]) Comment on above: Performed By: #### A DIFF, MG, BMP, CBC, GFR, ANEU ####[place] [address] MCH (RBC) [Entitic mass] 27.5 pg Normal 27.0-33.0 [facility] ([place]) Comment on above: Performed By: #### A DIFF, MG, BMP, CBC, GFR, ANEU ####[place] [address] MCHC 33.8 G/dL Normal 32.0-36.0 [facility] ([place]) Comment on above: Performed By: #### A DIFF, MG, BMP, CBC, GFR, ANEU ####[place] [address] MCV (RBC) [Entitic vol] 81.2 fL Normal 81.0-100.0 [facility] ([place]) Comment on above: Performed By: #### A DIFF, MG, BMP, CBC, GFR, ANEU ####[place] [address] Platelet 334 10 3/mcL Normal 150-450 [facility] ([place]) Comment on above: Performed By: #### A DIFF, MG, BMP, CBC, GFR, ANEU ####[place] [address] Platelet mean volume (Bld) [Entitic vol] 7.8 fL Normal 6.4-10.5 [facility] ([place]) Comment on above: Performed By: #### A DIFF, MG, BMP, CBC, GFR, ANEU ####[place] [address] RBC 3.68 10 6/mcL Low 4.50-6.00 [facility] ([place]) Comment on above: Performed By: #### A DIFF, MG, BMP, CBC, GFR, ANEU ####[place] [address] WBC 8.5 10 3/mcL Normal 4.5-10.8 [facility] ([place]) Comment on above: Performed By: #### A DIFF, MG, BMP, CBC, GFR, ANEU ####[place] [address] LABORATORYOrdered By: Samra Guillaume on 05-03-2024 Blood Glucose Interventions Administered agent to decrease blood sugar (05/03/24 12:10 PM) [facility] Work Phone: LABORATORYOrdered By: SYSTEM SYSTEM on 05-03-2024 Basophils (Bld) [#/Vol] 0.1 103/mcL Normal 0.0 - 0.3 10^3/mcL AH Workflow SS Basophils/100 WBC (Bld) 0.9 % Normal 0.0 - 2.5 % Workflow SS Calcium [Mass/Vol] 7.9 mg/dL Low 8.7 - 10. 4 mg/dL AH ADM SS Chloride [Moles/Vol] 107 mmol/L Normal 98 - 11 0 mEq/L AH ADM SS CO2 [Moles/Vol] 23 mmol/L Normal 22 - 32 mEq/L ADM SS Creatinine [Mass/Vol] 1.97 mg/dL High 0.60 - 1.40 mg/dL ADM SS Electrolyte Balance 9.0 mEq/L Normal 4.0 - 15 .0 mEq/L ADM SS Eosinophils (Bld) [#/Vol] 0.1 103/mcL Normal 0.0 - 0.7 10^3/mcL Workflow SS Eosinophils/100 WBC (Bld) 1.8 % Normal 0.0 - 6.0 % Workflow SS Erythrocyte distribution width (RBC) [Ratio] 18.2 % High 11.5 - 15.5 % Workflow SS GFR/1.73 sq M.predicted among blacks MDRD (S/P/Bld) [Vol rate/Area] 44 ml/min/1.73sqm Invalid Interpretation Code AH ADM SS Comment on above: Interpretive Data: GFR Population mean for , Non- Americans Ages 20-29 = 116 mL/min/1.73 sq.m. Ages 30-39 = 107 mL/min/1.73 sq.m. Ages 40-49 = 99 mL/min/1.73 sq.m. Ages 50-59 = 93 mL/min/1.73 sq.m. Ages 60-69 = 85 mL/min/1.73 sq.m. Ages 70+ = 75 mL/min/1.73 sq.m. Chronic Kidney Disease: Less than 60 mL/min/1.73 square meters End Stage Renal Disease: Less than 15 mL/min/1.73 square meters GFR/1.73 sq M.predicted among non-blacks MDRD (S/P/Bld) [Vol rate/Area] 37 ml/min/1.73sqm Invalid Interpretation Code ADM SS Comment on above: Interpretive Data: GFR Population mean for , Non- Americans Ages 20-29 = 116 mL/min/1.73 sq.m. Ages 30-39 = 107 mL/min/1.73 sq.m. Ages 40-49 = 99 mL/min/1.73 sq.m. Ages 50-59 = 93 mL/min/1.73 sq.m. Ages 60-69 = 85 mL/min/1.73 sq.m. Ages 70+ = 75 mL/min/1.73 sq.m. Chronic Kidney Disease: Less than 60 mL/min/1.73 square meters End Stage Renal Disease: Less than 15 mL/min/1.73 square meters Glucose [Mass/Vol] 185 mg/dL High 70 - 110 mg/dL AH ADM SS Hematocrit (Bld) [Volume fraction] 29.9 % Low 40.0 - 52.0 % AH Workflow SS Hemoglobin (Bld) [Mass/Vol] 10.1 G/dL Low 13.0 - 17.5 G/dL AH Workflow SS Lymphocytes (Bld) [#/Vol] 1.5 103/mcL Normal 0.9 - 4.3 10^3/mcL AH Workflow SS Lymphocytes/100 WBC (Bld) 17.8 % Low 20.0 - 40.0 % AH Workflow SS Magnesium [Mass/Vol] 1.8 mg/dL Normal 1.6 - 2 .4 mg/dL ADM SS MCH (RBC) [Entitic mass] 27.5 pg Normal 27.0 - 33.0 pg AH Workflow SS MCHC 33.8 G/dL Normal 32.0 - 36.0 G/dL AH Workflow SS MCV (RBC) [Entitic vol] 81.2 fL Normal 81.0 - 100.0 fL AH Workflow SS Monocytes (Bld) [#/Vol] 0.9 103/mcL Normal 0.1 - 1.4 10^3/mcL AH Workflow SS Monocytes/100 WBC (Bld) 10.6 % Normal 2.0 - 13.0 % AH Workflow SS Neutrophils (Bld) [#/Vol] 5.8 103/mcL Normal 2.3 - 8.1 10^3/mcL AH Workflow SS Neutrophils/100 WBC (Bld) 68.9 % Normal 50.0 - 75.0 % AH Workflow SS Platelet mean volume (Bld) [Entitic vol] 7.8 fL Normal 6.4 - 10.5 fL AH Workflow SS Platelets (Bld) [#/Vol] 334 103/mcL Normal 150 - 450 10^3/mcL AH Workflow SS Potassium [Moles/Vol] 4.0 mmol/L Normal 3.5 - 5.0 mEq/L AH ADM SS RBC (Bld) [#/Vol] 3.68 106/mcL Low 4.50 - 6.00 10^6/mcL AH Workflow SS Sodium [Moles/Vol] 139 mmol/L Normal 136 - 145 mEq/L AH ADM SS Urea nitrogen [Mass/Vol] 42.0 mg/dL High 8.0 - 22.0 mg/dL AH ADM SS Urea nitrogen/Creatinine [Mass ratio] 21.3 ratio Normal 10.0 - 22.0 ratio AH ADM SS WBC (Bld) [#/Vol] 8.5 103/mcL Normal 4.5 - 10.8 10^3/mcL AH Workflow SS MGon 05-03-2024 Magnesium [Mass/Vol] 1.8 mg/dL Normal 1.6-2.4 [facility] ([place]) Comment on above: Performed By: #### A DIFF, MG, BMP, CBC, GFR, ANEU ####[address] [address] .Auto Diffon 05-02-2024 Basophil, Absolute 0.1 10 3/mcL Normal 0.0-0.3 [facility] ([place]) Comment on above: Performed By: #### B MP, GFR, CBC, ADIFF, MG, ANEU ####[address] [address] Basophils/100 WBC (Bld) 0.6 % Normal 0.0-2.5 [facility] ([place]) Comment on above: Performed By: #### B MP, GFR, CBC, ADIFF, MG, ANEU ####[address] [address] Eosinophil, Absolute 0.2 10 3/mcL Normal 0.0-0.7 [facility] ([place]) Comment on above: Performed By: #### B MP, GFR, CBC, ADIFF, MG, ANEU ####[address] [address] Eosinophils/100 WBC (Bld) 2.1 % Normal 0.0-6.0 [facility] ([place]) Comment on above: Performed By: #### B MP, GFR, CBC, ADIFF, MG, ANEU ####[address] [address] Lymphocyte, Absolute 1.3 10 3/mcL Normal 0.9-4.3 [facility] ([place]) Comment on above: Performed By: #### B MP, GFR, CBC, ADIFF, MG, ANEU ####[address] [address] Lymphocytes/100 WBC (Bld) 15.7 % Low 20.0-40.0 [facility] ([place]) Comment on above: Performed By: #### B MP, GFR, CBC, ADIFF, MG, ANEU ####[address] [address] Monocyte, Absolute 0.9 10 3/mcL Normal 0.1-1.4 [facility] ([place] Comment on above: Performed By: #### B MP, GFR, CBC, ADIFF, MG, ANEU ####[address] [address] Monocytes/100 WBC (Bld) 10.4 % Normal 2.0-13.0 [facility] ([place]) Comment on above: Performed By: #### B MP, GFR, CBC, ADIFF, MG, ANEU ####[address] [address] Neutrophils/100 WBC (Bld) 71.2 % Normal 50.0-75.0 [facility] ([place]) Comment on above: Performed By: #### B MP, GFR, CBC, ADIFF, MG, ANEU ####[address] [address] .GFRon 05-02-2024 GFR 40 ml/min/1.73sqm Normal [facility] ([place]) Comment on above: Result Comment: GFR Population mean for , Non- Americans Ages 20-29 = 116 mL/min/1.73 sq.m. Ages 30-39 = 107 mL/min/1.73 sq.m. Ages 40-49 = 99 mL/min/1.73 sq.m. Ages 50-59 = 93 mL/min/1.73 sq.m. Ages 60-69 = 85 mL/min/1.73 sq.m. Ages 70+ = 75 mL/min/1.73 sq.m.Chronic Kidney Disease: Less than 60 mL/min/1.73 square metersEnd Stage Renal Disease: Less than 15 mL/min/1.73 square meters Performed By: #### B MP, GFR, CBC, ADIFF, MG, ANEU ####[address] [address] GFR Non- 33 ml/min/1.73sqm Normal [facility] ([place]) Comment on above: Result Comment: GFR Population mean for , Non- Americans Ages 20-29 = 116 mL/min/1.73 sq.m. Ages 30-39 = 107 mL/min/1.73 sq.m. Ages 40-49 = 99 mL/min/1.73 sq.m. Ages 50-59 = 93 mL/min/1.73 sq.m. Ages 60-69 = 85 mL/min/1.73 sq.m. Ages 70+ = 75 mL/min/1.73 sq.m.Chronic Kidney Disease: Less than 60 mL/min/1.73 square metersEnd Stage Renal Disease: Less than 15 mL/min/1.73 square meters Performed By: #### B MP, GFR, CBC, ADIFF, MG, ANEU ####[address] [address] .NEUABSon 05-02-2024 Neutrophil, Absolute 6.1 10 3/mcL Normal 2.3-8.1 [facility] ([place] Comment on above: Performed By: #### B MP, GFR, CBC, ADIFF, MG, ANEU ####[address] [address] BMPon 05-02-2024 BUN/Creatinine Ratio 19.2 ratio Normal 10.0-22.0 [facility] ([place] Comment on above: Performed By: #### B MP, GFR, CBC, ADIFF, MG, ANEU ####[address] [address] Calcium [Mass/Vol] 7.8 mg/dL Low 8.7-10.4 [facility] ([place]) Comment on above: Performed By: #### B MP, GFR, CBC, ADIFF, MG, ANEU ####[address] [address] Chloride [Moles/Vol] 106 mmol/L Normal 98-110 [facility] ([place] Comment on above: Performed By: #### B MP, GFR, CBC, ADIFF, MG, ANEU ####[address] [address] CO2 [Moles/Vol] 24 mmol/L Normal 22-32 [facility] ([place] Comment on above: Performed By: #### B MP, GFR, CBC, ADIFF, MG, ANEU ####[address] [address] Creatinine [Mass/Vol] 2.14 mg/dL High 0.60-1.40 [facility] ([place] Comment on above: Performed By: #### B MP, GFR, CBC, ADIFF, MG, ANEU ####[address] [address] Electrolyte Balance 9.0 mEq/L Normal 4.0-15.0 [facility] ([place]) Comment on above: Performed By: #### B MP, GFR, CBC, ADIFF, MG, ANEU ####[place] [address] Glucose [Mass/Vol] 166 mg/dL High 70-110 [facility] ([place] Comment on above: Performed By: #### B MP, GFR, CBC, ADIFF, MG, ANEU ####[address] [address] Potassium [Moles/Vol] 3.8 mmol/L Normal 3.5-5.0 [facility] ([place] Comment on above: Performed By: #### B MP, GFR, CBC, ADIFF, MG, ANEU ####[address] [address] Sodium [Moles/Vol] 139 mmol/L Normal 136-145 [facility] ([place] Comment on above: Performed By: #### B MP, GFR, CBC, ADIFF, MG, ANEU ####[address] [address] Urea nitrogen [Mass/Vol] 41.0 mg/dL High 8.0-22.0 [facility] ([place]) Comment on above: Performed By: #### B MP, GFR, CBC, ADIFF, MG, ANEU ####[place] [address] CBCon 05-02-2024 Erythrocyte distribution width (RBC) [Ratio] 18.3 % High 11.5-15.5 [facility] ([place]) Comment on above: Performed By: #### B MP, GFR, CBC, ADIFF, MG, ANEU ####[place] [address] Hematocrit (Bld) [Volume fraction] 29.0 % Low 40.0-52.0 [facility] ([place] Comment on above: Performed By: #### B MP, GFR, CBC, ADIFF, MG, ANEU ####[place] [address] Hgb 9.6 G/dL Low 13.0-17.5 [facility] ([place] Comment on above: Performed By: #### B MP, GFR, CBC, ADIFF, MG, ANEU ####[place] [address] MCH (RBC) [Entitic mass] 27.2 pg Normal 27.0-33.0 [facility] ([place] Comment on above: Performed By: #### B MP, GFR, CBC, ADIFF, MG, ANEU ####[place] [address] MCHC 33.2 G/dL Normal 32.0-36.0 [facility] ([place] Comment on above: Performed By: #### B MP, GFR, CBC, ADIFF, MG, ANEU ####[place] [address] MCV (RBC) [Entitic vol] 81.9 fL Normal 81.0-100.0 [facility] ([place] Comment on above: Performed By: #### B MP, GFR, CBC, ADIFF, MG, ANEU ####[place] [address] Platelet 383 10 3/mcL Normal 150-450 [facility] ([place] Comment on above: Performed By: #### B MP, GFR, CBC, ADIFF, MG, ANEU ####[place] [address] Platelet mean volume (Bld) [Entitic vol] 8.1 fL Normal 6.4-10.5 [facility] ([place]) Comment on above: Performed By: #### B MP, GFR, CBC, ADIFF, MG, ANEU ####[place] [address] RBC 3.54 10 6/mcL Low 4.50-6.00 [facility] ([place] Comment on above: Performed By: #### B MP, GFR, CBC, ADIFF, MG, ANEU ####[place] [address] WBC 8.6 10 3/mcL Normal 4.5-10.8 [facility] ([place] Comment on above: Performed By: #### B MP, GFR, CBC, ADIFF, MG, ANEU ####[place] [address] LABORATORYOrdered By: SYSTEM SYSTEM on 05-02-2024 Magnesium [Mass/Vol] 1.4 mg/dL Low 1.6 - 2 .4 mg/dL [facility] MGon 05-02-2024 Magnesium [Mass/Vol] 1.4 mg/dL Low 1.6-2.4 [facility] ([place] Comment on above: Performed By: #### B MP, GFR, CBC, ADIFF, MG, ANEU ####[place] [address] .Auto Diffon 05-01-2024 Basophil, Absolute 0.1 10 3/mcL Normal 0.0-0.3 [facility] ([place] Comment on above: Performed By: #### A ARBEN, GFR, CMP, ADIFF, CBC ####[place] [address] Basophils/100 WBC (Bld) 0.7 % Normal 0.0-2.5 [facility] ([place] Comment on above: Performed By: #### A ARBEN, GFR, CMP, ADIFF, CBC ####[address] [address] Eosinophil, Absolute 0.2 10 3/mcL Normal 0.0-0.7 [facility] ([place] Comment on above: Performed By: #### A ARBEN, GFR, CMP, ADIFF, CBC ####[address] [address] Eosinophils/100 WBC (Bld) 2.1 % Normal 0.0-6.0 [facility] ([place] Comment on above: Performed By: #### A ARBEN, GFR, CMP, ADIFF, CBC ####[address] [address] Lymphocyte, Absolute 1.3 10 3/mcL Normal 0.9-4.3 [facility] ([place] Comment on above: Performed By: #### A ARBEN, GFR, CMP, ADIFF, CBC ####[address] [address] Lymphocytes/100 WBC (Bld) 15.9 % Low 20.0-40.0 [facility] ([place] Comment on above: Performed By: #### A ARBEN, GFR, CMP, ADIFF, CBC ####[address] [address] Monocyte, Absolute 1.0 10 3/mcL Normal 0.1-1.4 [facility] ([place] Comment on above: Performed By: #### A ARBEN, GFR, CMP, ADIFF, CBC ####[address] [address] Monocytes/100 WBC (Bld) 12.1 % Normal 2.0-13.0 [facility] ([place]) Comment on above: Performed By: #### A ARBEN, GFR, CMP, ADIFF, CBC ####[address] [address] Neutrophils/100 WBC (Bld) 69.2 % Normal 50.0-75.0 [facility] ([place] Comment on above: Performed By: #### A ARBEN, GFR, CMP, ADIFF, CBC ####[address] [address] .GFRon 05-01-2024 GFR 39 ml/min/1.73sqm Normal [facility] ([place]) Comment on above: Result Comment: GFR Population mean for , Non- Americans Ages 20-29 = 116 mL/min/1.73 sq.m. Ages 30-39 = 107 mL/min/1.73 sq.m. Ages 40-49 = 99 mL/min/1.73 sq.m. Ages 50-59 = 93 mL/min/1.73 sq.m. Ages 60-69 = 85 mL/min/1.73 sq.m. Ages 70+ = 75 mL/min/1.73 sq.m.Chronic Kidney Disease: Less than 60 mL/min/1.73 square metersEnd Stage Renal Disease: Less than 15 mL/min/1.73 square meters Performed By: #### A ARBEN, GFR, CMP, ADIFF, CBC ####[place] [address] GFR Non- 33 ml/min/1.73sqm Normal [facility] ([place]) Comment on above: Result Comment: GFR Population mean for , Non- Americans Ages 20-29 = 116 mL/min/1.73 sq.m. Ages 30-39 = 107 mL/min/1.73 sq.m. Ages 40-49 = 99 mL/min/1.73 sq.m. Ages 50-59 = 93 mL/min/1.73 sq.m. Ages 60-69 = 85 mL/min/1.73 sq.m. Ages 70+ = 75 mL/min/1.73 sq.m.Chronic Kidney Disease: Less than 60 mL/min/1.73 square metersEnd Stage Renal Disease: Less than 15 mL/min/1.73 square meters Performed By: #### A ARBEN, GFR, CMP, ADIFF, CBC ####[place] [address] .NEUABSon 05-01-2024 Neutrophil, Absolute 5.5 10 3/mcL Normal 2.3-8.1 [facility] ([place] Comment on above: Performed By: #### A ARBEN, GFR, CMP, ADIFF, CBC ####[place] [address] CBCon 05-01-2024 Erythrocyte distribution width (RBC) [Ratio] 18.3 % High 11.5-15.5 [facility] ([place] Comment on above: Performed By: #### A ARBEN, GFR, CMP, ADIFF, CBC ####[place] [address] Hematocrit (Bld) [Volume fraction] 27.8 % Low 40.0-52.0 [facility] ([place] Comment on above: Performed By: #### A ARBEN, GFR, CMP, ADIFF, CBC ####[place] [address] Hgb 9.4 G/dL Low 13.0-17.5 [facility] ([place] Comment on above: Performed By: #### A ARBEN, GFR, CMP, ADIFF, CBC ####[place] [address] MCH (RBC) [Entitic mass] 27.7 pg Normal 27.0-33.0 [facility] ([place] Comment on above: Performed By: #### A ARBEN, GFR, CMP, ADIFF, CBC ####[place] [address] MCHC 33.9 G/dL Normal 32.0-36.0 [facility] ([place] Comment on above: Performed By: #### A ARBEN, GFR, CMP, ADIFF, CBC ####[place] [address] MCV (RBC) [Entitic vol] 81.6 fL Normal 81.0-100.0 [facility] ([place] Comment on above: Performed By: #### A ARBEN, GFR, CMP, ADIFF, CBC ####[place] [address] Platelet 430 10 3/mcL Normal 150-450 [facility] ([place] Comment on above: Performed By: #### A ARBEN, GFR, CMP, ADIFF, CBC ####[place] [address] Platelet mean volume (Bld) [Entitic vol] 8.0 fL Normal 6.4-10.5 [facility] ([place]) Comment on above: Performed By: #### A ARBEN, GFR, CMP, ADIFF, CBC ####[place] [address] RBC 3.41 10 6/mcL Low 4.50-6.00 [facility] ([place] Comment on above: Performed By: #### A ARBEN, GFR, CMP, ADIFF, CBC ####[place] [address] WBC 7.9 10 3/mcL Normal 4.5-10.8 [facility] ([place] Comment on above: Performed By: #### A ARBEN, GFR, CMP, ADIFF, CBC ####[place] [address] CMPon 05-01-2024 Albumin Level 1.4 G/dL Low 3.2-4.8 [facility] ([place] Comment on above: Performed By: #### A ARBEN, GFR, CMP, ADIFF, CBC ####[place] [address] Albumin/Globulin [Mass ratio] 0.3 {ratio} Low 0.9-1.6 [facility] ([place] Comment on above: Performed By: #### A ARBEN, GFR, CMP, ADIFF, CBC ####[address] [address] ALP [Catalytic activity/Vol] 180 U/L High 38-126 [facility] ([place] Comment on above: Performed By: #### A ARBEN, GFR, CMP, ADIFF, CBC ####[place] [address] ALT [Catalytic activity/Vol] 35 U/L Normal 12-55 [facility] ([place] Comment on above: Performed By: #### A ARBEN, GFR, CMP, ADIFF, CBC ####[place] [address] AST [Catalytic activity/Vol] 25 U/L Normal 8-34 [facility] ([place] Comment on above: Performed By: #### A RABEN, GFR, CMP, ADIFF, CBC ####[place] [id number] Bili Total 0.40 mg/dL Normal 0.20-1.20 [facility] ([place]) Comment on above: Result Comment: Use of this assay is not recommended for patients undergoing treatment with eltrombopag due to the potential for falsely elevated results. Performed By: #### A ARBEN, GFR, CMP, ADIFF, CBC ####[place] [address] BUN/Creatinine Ratio 18.8 ratio Normal 10.0-22.0 [facility] ([place]) Comment on above: Performed By: #### A ARBEN, GFR, CMP, ADIFF, CBC ####[place] [address] Calcium [Mass/Vol] 7.8 mg/dL Low 8.7-10.4 [facility] ([place]) Comment on above: Performed By: #### A ARBEN, GFR, CMP, ADIFF, CBC ####[place] [address] Chloride [Moles/Vol] 105 mmol/L Normal 98-110 [facility] ([place]) Comment on above: Performed By: #### A ARBEN, GFR, CMP, ADIFF, CBC ####[place] [address] CO2 [Moles/Vol] 23 mmol/L Normal 22-32 [facility] ([place] Comment on above: Performed By: #### A ARBEN, GFR, CMP, ADIFF, CBC ####[address] [address] Creatinine [Mass/Vol] 2.18 mg/dL High 0.60-1.40 [facility] ([place]) Comment on above: Performed By: #### A ARBEN, GFR, CMP, ADIFF, CBC ####[place] [address] Electrolyte Balance 9.0 mEq/L Normal 4.0-15.0 [facility] ([place]) Comment on above: Performed By: #### A ARBEN, GFR, CMP, ADIFF, CBC ####[address] [address] Globulin 5.0 G/dL High 1.5-3.8 [facility] ([place] Comment on above: Performed By: #### A ARBEN, GFR, CMP, ADIFF, CBC ####[address] [address] Glucose [Mass/Vol] 207 mg/dL High 70-110 [facility] ([place] Comment on above: Performed By: #### A ARBEN, GFR, CMP, ADIFF, CBC ####[address] [address] Potassium [Moles/Vol] 3.5 mmol/L Normal 3.5-5.0 [facility] ([place] Comment on above: Performed By: #### A ARBEN, GFR, CMP, ADIFF, CBC ####[address] [address] Sodium [Moles/Vol] 137 mmol/L Normal 136-145 [facility] ([place] Comment on above: Performed By: #### A ARBEN, GFR, CMP, ADIFF, CBC ####[address] [address] Total Protein 6.4 G/dL Normal 5.7-8.2 [facility] ([place]) Comment on above: Result Comment: No te - New Reference Range in effect 20 Performed By: #### A ARBEN, GFR, CMP, ADIFF, CBC ####[address] [address] Urea nitrogen [Mass/Vol] 41.0 mg/dL High 8.0-22.0 [facility] ([place] Comment on above: Performed By: #### A ARBEN, GFR, CMP, ADIFF, CBC ####[address] [address] LABORATORYOrdered By: Rufina ashraf on 05-01-2024 Blood Glucose Interventions Administered agent to decrease blood sugar (05/01/24 8:53 PM) [facility] Work Phone: LABORATORYOrdered By: SYSTEM SYSTEM on 06-13-2024 Albumin BCP dye [Mass/Vol] 1.4 G/dL Low 3.2 - 4.8 G/dL ADM SS Albumin/Globulin [Mass ratio] 0.3 {ratio} Low 0.9 - 1.6 ratio AH ADM SS ALP [Catalytic activity/Vol] 180 U/L High 38 - 126 U/L ADM SS ALT No additional P-5'-P [Catalytic activity/Vol] 35 U/L Normal 12 - 55 U/L ADM SS AST [Catalytic activity/Vol] 25 U/L Normal 8 - 34 U/L ADM SS Bilirubin [Mass/Vol] 0.40 mg/dL Normal 0.20 - 1.20 mg/dL AH ADM SS Comment on above: Interpretive Data: U se of this assay is not recommended for patients undergoing treatment with eltrombopag due to the potential for falsely elevated results. Globulin 5.0 G/dL High 1.5 - 3.8 G/dL ADM SS Protein [Mass/Vol] 6.4 G/dL Normal 5.7 - 8.2 G/dL ADM SS Comment on above: Interpretive Data: * *Note - New Reference Range in effect 20 .Auto Diffon 04-30-2024 Basophil, Absolute 0.1 10 3/mcL Normal 0.0-0.3 [facility] ([place] Comment on above: Performed By: #### A ARBEN, ADIFF, CBC, BMP, GFR, RFP ####[address] [address] Basophils/100 WBC (Bld) 0.6 % Normal 0.0-2.5 [facility] ([place]) Comment on above: Performed By: #### A ARBEN, ADIFF, CBC, BMP, GFR, RFP ####[address] [address] Eosinophil, Absolute 0.2 10 3/mcL Normal 0.0-0.7 [facility] ([place]) Comment on above: Performed By: #### A ARBEN, ADIFF, CBC, BMP, GFR, RFP ####[address] [address] Eosinophils/100 WBC (Bld) 1.7 % Normal 0.0-6.0 [facility] ([place]) Comment on above: Performed By: #### A ARBEN, ADIFF, CBC, BMP, GFR, RFP ####[address] [address] Lymphocyte, Absolute 1.6 10 3/mcL Normal 0.9-4.3 [facility] ([place]) Comment on above: Performed By: #### A ARBEN, ADIFF, CBC, BMP, GFR, RFP ####[address] [address] Lymphocytes/100 WBC (Bld) 14.4 % Low 20.0-40.0 [facility] ([place]) Comment on above: Performed By: #### A ARBEN, ADIFF, CBC, BMP, GFR, RFP ####[address] [address] Monocyte, Absolute 1.1 10 3/mcL Normal 0.1-1.4 [facility] ([place]) Comment on above: Performed By: #### A ARBEN, ADIFF, CBC, BMP, GFR, RFP ####[address] [address] Monocytes/100 WBC (Bld) 10.3 % Normal 2.0-13.0 [facility] ([place]) Comment on above: Performed By: #### A ARBEN, ADIFF, CBC, BMP, GFR, RFP ####[address] [address] Neutrophils/100 WBC (Bld) 73.0 % Normal 50.0-75.0 [facility] ([place]) Comment on above: Performed By: #### A ARBEN, ADIFF, CBC, BMP, GFR, RFP ####[address] [address] .GFRon 04-30-2024 GFR 36 ml/min/1.73sqm Normal [facility] ([place]) Comment on above: Result Comment: GFR Population mean for , Non- Americans Ages 20-29 = 116 mL/min/1.73 sq.m. Ages 30-39 = 107 mL/min/1.73 sq.m. Ages 40-49 = 99 mL/min/1.73 sq.m. Ages 50-59 = 93 mL/min/1.73 sq.m. Ages 60-69 = 85 mL/min/1.73 sq.m. Ages 70+ = 75 mL/min/1.73 sq.m.Chronic Kidney Disease: Less than 60 mL/min/1.73 square metersEnd Stage Renal Disease: Less than 15 mL/min/1.73 square meters Performed By: #### A ARBEN, ADIFF, CBC, BMP, GFR, RFP ####[address] [address] GFR Non- 29 ml/min/1.73sqm Normal [facility] ([place] Comment on above: Result Comment: GFR Population mean for , Non- Americans Ages 20-29 = 116 mL/min/1.73 sq.m. Ages 30-39 = 107 mL/min/1.73 sq.m. Ages 40-49 = 99 mL/min/1.73 sq.m. Ages 50-59 = 93 mL/min/1.73 sq.m. Ages 60-69 = 85 mL/min/1.73 sq.m. Ages 70+ = 75 mL/min/1.73 sq.m.Chronic Kidney Disease: Less than 60 mL/min/1.73 square metersEnd Stage Renal Disease: Less than 15 mL/min/1.73 square meters Performed By: #### A ARBEN, ADIFF, CBC, BMP, GFR, RFP ####[address] [address] .NEUABSon 04-30-2024 Neutrophil, Absolute 8.0 10 3/mcL Normal 2.3-8.1 [facility] ([place] Comment on above: Performed By: #### A ARBEN, ADIFF, CBC, BMP, GFR, RFP ####[address] [address] BMPon 04-30-2024 BUN/Creatinine Ratio 19.2 ratio Normal 10.0-22.0 [facility] ([place]) Comment on above: Performed By: #### A ARBEN, ADIFF, CBC, BMP, GFR, RFP ####[address] [address] Calcium [Mass/Vol] 7.9 mg/dL Low 8.7-10.4 [facility] ([place] Comment on above: Performed By: #### A ARBEN, ADIFF, CBC, BMP, GFR, RFP ####[address] [address] Chloride [Moles/Vol] 105 mmol/L Normal 98-110 [facility] ([place] Comment on above: Performed By: #### A ARBEN, ADIFF, CBC, BMP, GFR, RFP ####[place] [address] CO2 [Moles/Vol] 18 mmol/L Low 22-32 [facility] ([place] Comment on above: Performed By: #### A ARBEN, ADIFF, CBC, BMP, GFR, RFP ####[address] [address] Creatinine [Mass/Vol] 2.39 mg/dL High 0.60-1.40 [facility] ([place] Comment on above: Performed By: #### A ARBEN, ADIFF, CBC, BMP, GFR, RFP ####[place] [address] Electrolyte Balance 14.0 mEq/L Normal 4.0-15.0 [facility] ([place]) Comment on above: Performed By: #### A ARBEN, ADIFF, CBC, BMP, GFR, RFP ####[address] [address] Glucose [Mass/Vol] 148 mg/dL High 70-110 [facility] ([place] Comment on above: Performed By: #### A ARBEN, ADIFF, CBC, BMP, GFR, RFP ####[address] [address] Potassium [Moles/Vol] 4.0 mmol/L Normal 3.5-5.0 [facility] ([place] Comment on above: Performed By: #### A ARBEN, ADIFF, CBC, BMP, GFR, RFP ####[place] [address] Sodium [Moles/Vol] 137 mmol/L Normal 136-145 [facility] ([place] Comment on above: Performed By: #### A ARBEN, ADIFF, CBC, BMP, GFR, RFP ####[place] [address] Urea nitrogen [Mass/Vol] 46.0 mg/dL High 8.0-22.0 [facility] ([place]) Comment on above: Performed By: #### A ARBEN, ADIFF, CBC, BMP, GFR, RFP ####[place] [address] CBCon 04-30-2024 Erythrocyte distribution width (RBC) [Ratio] 17.8 % High 11.5-15.5 [facility] ([place]) Comment on above: Performed By: #### A ARBEN, ADIFF, CBC, BMP, GFR, RFP ####[place] [address] Hematocrit (Bld) [Volume fraction] 27.1 % Low 40.0-52.0 [facility] ([place]) Comment on above: Performed By: #### A ARBEN, ADIFF, CBC, BMP, GFR, RFP ####[place] [address] Hgb 9.1 G/dL Low 13.0-17.5 [facility] ([place]) Comment on above: Performed By: #### A ARBEN, ADIFF, CBC, BMP, GFR, RFP ####[place] [address] MCH (RBC) [Entitic mass] 27.5 pg Normal 27.0-33.0 [facility] ([place]) Comment on above: Performed By: #### A ARBEN, ADIFF, CBC, BMP, GFR, RFP ####[place] [address] MCHC 33.4 G/dL Normal 32.0-36.0 [facility] ([place]) Comment on above: Performed By: #### A ARBEN, ADIFF, CBC, BMP, GFR, RFP ####[place] [address] MCV (RBC) [Entitic vol] 82.3 fL Normal 81.0-100.0 [facility] ([place]) Comment on above: Performed By: #### A ARBEN, ADIFF, CBC, BMP, GFR, RFP ####[address] [address] Platelet 476 10 3/mcL High 150-450 [facility] ([place]) Comment on above: Performed By: #### A ARBEN, ADIFF, CBC, BMP, GFR, RFP ####[place] [address] Platelet mean volume (Bld) [Entitic vol] 9.1 fL Normal 6.4-10.5 [facility] ([place]) Comment on above: Performed By: #### A ARBEN, ADIFF, CBC, BMP, GFR, RFP ####[place] [address] RBC 3.30 10 6/mcL Low 4.50-6.00 [facility] ([place]) Comment on above: Performed By: #### A ARBEN, ADIFF, CBC, BMP, GFR, RFP ####[place] [address] WBC 11.0 10 3/mcL High 4.5-10.8 [facility] ([place]) Comment on above: Performed By: #### A ARBEN, ADIFF, CBC, BMP, GFR, RFP ####[place] [place] [address] LABORATORYOrdered By: SYSTEM SYSTEM on 04-30-2024 Albumin BCP dye [Mass/Vol] 1.4 G/dL Low 3.2 - 4.8 G/dL AH ADM SS Phosphate [Mass/Vol] 4.5 mg/dL Normal 2.4 - 5 .1 mg/dL ADM SS Comment on above: Interpretive Data: * *Note - New Reference Range in effect 20 RFPon 04-30-2024 Albumin Level 1.4 G/dL Low 3.2-4.8 [facility] ([place]) Comment on above: Performed By: #### A ARBEN, ADIFF, CBC, BMP, GFR, RFP ####[place] [address] Phosphate [Mass/Vol] 4.5 mg/dL Normal 2.4-5.1 [facility] ([place]) Comment on above: Result Comment: No te - New Reference Range in effect 20 Performed By: #### A ARBEN, ADIFF, CBC, BMP, GFR, RFP ####[address] [address] .Auto Diffon 04-29-2024 Basophil, Absolute 0.1 10 3/mcL Normal 0.0-0.3 [facility] ([place]) Comment on above: Performed By: #### H FP, ANEU, BMP, GFR, CBC, ADIFF, MG ####[address] [address] Basophils/100 WBC (Bld) 1.1 % Normal 0.0-2.5 [facility] ([place]) Comment on above: Performed By: #### H FP, ANEU, BMP, GFR, CBC, ADIFF, MG ####[address] [address] Eosinophil, Absolute 0.4 10 3/mcL Normal 0.0-0.7 [facility] ([place]) Comment on above: Performed By: #### H FP, ANEU, BMP, GFR, CBC, ADIFF, MG ####[address] [address] Eosinophils/100 WBC (Bld) 3.2 % Normal 0.0-6.0 [facility] ([place]) Comment on above: Performed By: #### H FP, ANEU, BMP, GFR, CBC, ADIFF, MG ####[address] [address] Lymphocyte, Absolute 1.8 10 3/mcL Normal 0.9-4.3 [facility] ([place]) Comment on above: Performed By: #### H FP, ANEU, BMP, GFR, CBC, ADIFF, MG ####[address] [address] Lymphocytes/100 WBC (Bld) 13.9 % Low 20.0-40.0 [facility] ([place]) Comment on above: Performed By: #### H FP, ANEU, BMP, GFR, CBC, ADIFF, MG ####[place] [address] [place] [address] Monocyte, Absolute 1.2 10 3/mcL Normal 0.1-1.4 [facility] ([place]) Comment on above: Performed By: #### H FP, ANEU, BMP, GFR, CBC, ADIFF, MG ####[place] [id number] [address] [place] [address] Monocytes/100 WBC (Bld) 9.3 % Normal 2.0-13.0 [facility] ([place]) Comment on above: Performed By: #### H FP, ANEU, BMP, GFR, CBC, ADIFF, MG ####[address] [address] Neutrophils/100 WBC (Bld) 72.5 % Normal 50.0-75.0 [facility] ([place]) Comment on above: Performed By: #### H FP, ANEU, BMP, GFR, CBC, ADIFF, MG ####[address] [address] .GFRon 04-29-2024 GFR Non- 31 ml/min/1.73sqm Normal [facility] ([place]) Comment on above: Result Comment: GFR Population mean for , Non- Americans Ages 20-29 = 116 mL/min/1.73 sq.m. Ages 30-39 = 107 mL/min/1.73 sq.m. Ages 40-49 = 99 mL/min/1.73 sq.m. Ages 50-59 = 93 mL/min/1.73 sq.m. Ages 60-69 = 85 mL/min/1.73 sq.m. Ages 70+ = 75 mL/min/1.73 sq.m.Chronic Kidney Disease: Less than 60 mL/min/1.73 square metersEnd Stage Renal Disease: Less than 15 mL/min/1.73 square meters Performed By: #### H FP, ANEU, BMP, GFR, CBC, ADIFF, MG ####[address] [address] GFR 38 ml/min/1.73sqm Normal [facility] ([place]) Comment on above: Result Comment: GFR Population mean for , Non- Americans Ages 20-29 = 116 mL/min/1.73 sq.m. Ages 30-39 = 107 mL/min/1.73 sq.m. Ages 40-49 = 99 mL/min/1.73 sq.m. Ages 50-59 = 93 mL/min/1.73 sq.m. Ages 60-69 = 85 mL/min/1.73 sq.m. Ages 70+ = 75 mL/min/1.73 sq.m.Chronic Kidney Disease: Less than 60 mL/min/1.73 square metersEnd Stage Renal Disease: Less than 15 mL/min/1.73 square meters Performed By: #### H FP, ANEU, BMP, GFR, CBC, ADIFF, MG ####[address] [address] .NEUABSon 04-29-2024 Neutrophil, Absolute 9.1 10 3/mcL High 2.3-8.1 [facility] ([place]) Comment on above: Performed By: #### H FP, ANEU, BMP, GFR, CBC, ADIFF, MG ####[address] [address] APTTon 04-29-2024 aPTT Coag (Bld) [Time] 39.0 s High 25.0-35.0 [facility] ([place]) Comment on above: Result Comment: For Heparin anticoagulation therapy, the recommendedtherapeutic range is: 54-77 seconds (APTT Correlationwith Anti-Xa therapeutic range of 0.3-0.7 units/ml).PLEASE REFERENCE THE PHARMACY PROTOCOL FOR DOSING. Heparin dose (APTT) Heparin IV Normal [facility] ([place]) BMPon 04-29-2024 BUN/Creatinine Ratio 16.7 ratio Normal 10.0-22.0 [facility] ([place]) Comment on above: Performed By: #### H FP, ANEU, BMP, GFR, CBC, ADIFF, MG ####[address] [address] Calcium [Mass/Vol] 8.2 mg/dL Low 8.7-10.4 [facility] ([place]) Comment on above: Performed By: #### H FP, ANEU, BMP, GFR, CBC, ADIFF, MG ####[address] [address] Chloride [Moles/Vol] 105 mmol/L Normal 98-110 [facility] ([place]) Comment on above: Performed By: #### H FP, ANEU, BMP, GFR, CBC, ADIFF, MG ####[address] [address] CO2 [Moles/Vol] 18 mmol/L Low 22-32 [facility] ([place]) Comment on above: Performed By: #### H FP, ANEU, BMP, GFR, CBC, ADIFF, MG ####[place] [address] Creatinine [Mass/Vol] 2.28 mg/dL High 0.60-1.40 [facility] ([place]) Comment on above: Performed By: #### H FP, ANEU, BMP, GFR, CBC, ADIFF, MG ####[place] [address] Electrolyte Balance 12.0 mEq/L Normal 4.0-15.0 [facility] ([place] Comment on above: Performed By: #### H FP, ANEU, BMP, GFR, CBC, ADIFF, MG ####[place] [address] Glucose [Mass/Vol] 125 mg/dL High 70-110 [facility] ([place] Comment on above: Performed By: #### H FP, ANEU, BMP, GFR, CBC, ADIFF, MG ####[place] [address] Potassium [Moles/Vol] 4.0 mmol/L Normal 3.5-5.0 [facility] ([place]) Comment on above: Performed By: #### H FP, ANEU, BMP, GFR, CBC, ADIFF, MG ####[place] [address] Sodium [Moles/Vol] 135 mmol/L Low 136-145 [facility] ([place]) Comment on above: Performed By: #### H FP, ANEU, BMP, GFR, CBC, ADIFF, MG ####[address] [address] Urea nitrogen [Mass/Vol] 38.0 mg/dL High 8.0-22.0 [facility] ([place]) Comment on above: Performed By: #### H FP, ANEU, BMP, GFR, CBC, ADIFF, MG ####[address] [address] CBCon 04-29-2024 Erythrocyte distribution width (RBC) [Ratio] 17.3 % High 11.5-15.5 [facility] ([place]) Comment on above: Order Comment: must be drawn in a lavender 04/29/2024 06:36:26 EDT called @06:36am Performed By: #### H FP, ANEU, BMP, GFR, CBC, ADIFF, MG ####[place] [address] Hematocrit (Bld) [Volume fraction] 29.2 % Low 40.0-52.0 [facility] ([place]) Comment on above: Order Comment: must be drawn in a lavender 04/29/2024 06:36:26 EDT called @06:36am Performed By: #### H FP, ANEU, BMP, GFR, CBC, ADIFF, MG ####[place] [address] Hgb 9.5 G/dL Low 13.0-17.5 [facility] ([place]) Comment on above: Order Comment: must be drawn in a lavender 04/29/2024 06:36:26 EDT called @06:36am Performed By: #### H FP, ANEU, BMP, GFR, CBC, ADIFF, MG ####[address] [address] MCH (RBC) [Entitic mass] 26.9 pg Low 27.0-33.0 [facility] ([place]) Comment on above: Order Comment: must be drawn in a lavender 04/29/2024 06:36:26 EDT called @06:36am Performed By: #### H FP, ANEU, BMP, GFR, CBC, ADIFF, MG ####[place] [address] MCHC 32.7 G/dL Normal 32.0-36.0 [facility] ([place]) Comment on above: Order Comment: must be drawn in a [facility] 04/29/2024 06:36:26 EDT called @06:36am Performed By: #### H FP, ANEU, BMP, GFR, CBC, ADIFF, MG ####[place] [id number] [place] [address] MCV (RBC) [Entitic vol] 82.3 fL Normal 81.0-100.0 [facility] ([place]) Comment on above: Order Comment: must be drawn in a [facility] 04/29/2024 06:36:26 EDT called @06:36am Performed By: #### H FP, ANEU, BMP, GFR, CBC, ADIFF, MG ####[place] [address] Platelet 502 10 3/mcL High 150-450 [facility] ([place]) Comment on above: Order Comment: must be drawn in a [facility] 04/29/2024 06:36:26 EDT called @06:36am Performed By: #### H FP, ANEU, BMP, GFR, CBC, ADIFF, MG ####[place] [address] Platelet mean volume (Bld) [Entitic vol] 9.0 fL Normal 6.4-10.5 [facility] ([place]) Comment on above: Order Comment: must be drawn in a [facility] 04/29/2024 06:36:26 EDT called @06:36am Performed By: #### H FP, ANEU, BMP, GFR, CBC, ADIFF, MG ####[place] [id number] [place] [address] RBC 3.55 10 6/mcL Low 4.50-6.00 [facility] ([place]) Comment on above: Order Comment: must be drawn in a [facility] 04/29/2024 06:36:26 EDT called @06:36am Performed By: #### H FP, ANEU, BMP, GFR, CBC, ADIFF, MG ####[place] [id number] [place] [address] WBC 12.6 10 3/mcL High 4.5-10.8 [facility] ([place]) Comment on above: Order Comment: must be drawn in a lavender 04/29/2024 06:36:26 EDT called @06:36am Performed By: #### H FP, ANEU, BMP, GFR, CBC, ADIFF, MG ####[address] [address] HFPon 04-29-2024 Bili Indirect 0.2 mg/dL Normal 0.1-10.0 [facility] ([place]) Comment on above: Performed By: #### H FP, ANEU, BMP, GFR, CBC, ADIFF, MG ####[place] [address] Albumin Level 1.4 G/dL Low 3.2-4.8 [facility] ([place]) Comment on above: Performed By: #### H FP, ANEU, BMP, GFR, CBC, ADIFF, MG ####[place] [address] Albumin/Globulin [Mass ratio] 0.3 {ratio} Low 0.9-1.6 [facility] ([place]) Comment on above: Performed By: #### H FP, ANEU, BMP, GFR, CBC, ADIFF, MG ####[place] [address] ALP [Catalytic activity/Vol] 183 U/L High 38-126 [facility] ([place]) Comment on above: Performed By: #### H FP, ANEU, BMP, GFR, CBC, ADIFF, MG ####[place] [address] ALT [Catalytic activity/Vol] 68 U/L High 12-55 [facility] ([place]) Comment on above: Performed By: #### H FP, ANEU, BMP, GFR, CBC, ADIFF, MG ####[place] [address] AST [Catalytic activity/Vol] 74 U/L High 8-34 [facility] ([place]) Comment on above: Performed By: #### H FP, ANEU, BMP, GFR, CBC, ADIFF, MG ####[place] [address] Bili Direct 0.4 mg/dL Normal 0.0-0.4 [facility] ([place]) Comment on above: Result Comment: Use of this assay is not recommended for patients undergoing treatment with eltrombopag due to the potential for falsely elevated results. Performed By: #### H FP, ANEU, BMP, GFR, CBC, ADIFF, MG ####[place] [address] Bili Total 0.60 mg/dL Normal 0.20-1.20 [facility] ([place]) Comment on above: Result Comment: Use of this assay is not recommended for patients undergoing treatment with eltrombopag due to the potential for falsely elevated results. Performed By: #### H FP, ANEU, BMP, GFR, CBC, ADIFF, MG ####[place] [address] Globulin 4.9 G/dL High 1.5-3.8 [facility] ([place]) Comment on above: Performed By: #### H FP, ANEU, BMP, GFR, CBC, ADIFF, MG ####[place] [address] Total Protein 6.3 G/dL Normal 5.7-8.2 [facility] ([place]) Comment on above: Result Comment: No te - New Reference Range in effect 20 Performed By: #### H FP, ANEU, BMP, GFR, CBC, ADIFF, MG ####[place] [address] LABORATORYOrdered By: SYSTEM SYSTEM on 04-29-2024 Albumin BCP dye [Mass/Vol] 1.4 G/dL Low 3.2 - 4.8 G/dL ADM SS Albumin/Globulin [Mass ratio] 0.3 {ratio} Low 0.9 - 1.6 ratio AH ADM SS ALP [Catalytic activity/Vol] 183 U/L High 38 - 126 U/L AH ADM SS ALT No additional P-5'-P [Catalytic activity/Vol] 68 U/L High 12 - 55 U/L AH ADM SS AST [Catalytic activity/Vol] 74 U/L High 8 - 34 U/L AH ADM SS Bili Indirect 0.2 mg/dL Normal 0.1 - 10.0 mg/dL AH Chemistry S Bilirubin [Mass/Vol] 0.60 mg/dL Normal 0.20 - 1.20 mg/dL AH ADM SS Comment on above: Interpretive Data: U se of this assay is not recommended for patients undergoing treatment with eltrombopag due to the potential for falsely elevated results. Bilirubin.conjugated [Mass/Vol] 0.4 mg/dL Normal 0.0 - 0.4 mg/dL AH ADM SS Comment on above: Interpretive Data: U se of this assay is not recommended for patients undergoing treatment with eltrombopag due to the potential for falsely elevated results. Globulin 4.9 G/dL High 1.5 - 3.8 G/dL AH ADM SS Magnesium [Mass/Vol] 1.8 mg/dL Normal 1.6 - 2 .4 mg/dL AH ADM SS Protein [Mass/Vol] 6.3 G/dL Normal 5.7 - 8.2 G/dL AH ADM SS Comment on above: Interpretive Data: * *Note - New Reference Range in effect 20 LABORATORYOrdered By: Samra Cortes on 04-29-2024 aPTT Coag (Bld) [Time] 39.0 s High 25.0 - 35.0 seconds [facility] SS Comment on above: Interpretive Data: F or Heparin anticoagulation therapy, the recommended therapeutic range is: 54-77 seconds (APTT Correlation with Anti-Xa therapeutic range of 0.3-0.7 units/ml). PLEASE REFERENCE THE PHARMACY PROTOCOL FOR DOSING. Heparin dose (APTT) Heparin IV (04/29/24 6:07 AM) Normal AH Coagulation S MGon 04-29-2024 Magnesium [Mass/Vol] 1.8 mg/dL Normal 1.6-2.4 [facility] ([place]) Comment on above: Performed By: #### H FP, ANEU, BMP, GFR, CBC, ADIFF, MG ####[place] [address] .Auto Diffon 04-28-2024 Basophil, Absolute 0.1 10 3/mcL Normal 0.0-0.3 [facility] ([place]) Comment on above: Performed By: #### C BC, ADIFF, GFR, MG, ANEU, PBNP, RFP ####[address] [address] Basophils/100 WBC (Bld) 0.8 % Normal 0.0-2.5 [facility] ([place]) Comment on above: Performed By: #### C BC, ADIFF, GFR, MG, ANEU, PBNP, RFP ####[address] [address] Eosinophil, Absolute 0.4 10 3/mcL Normal 0.0-0.7 [facility] ([place]) Comment on above: Performed By: #### C BC, ADIFF, GFR, MG, ANEU, PBNP, RFP ####[address] [address] Eosinophils/100 WBC (Bld) 2.4 % Normal 0.0-6.0 [facility] ([place]) Comment on above: Performed By: #### C BC, ADIFF, GFR, MG, ANEU, PBNP, RFP ####[address] [address] Lymphocyte, Absolute 2.4 10 3/mcL Normal 0.9-4.3 [facility] ([place] Comment on above: Performed By: #### C BC, ADIFF, GFR, MG, ANEU, PBNP, RFP ####[address] [address] Lymphocytes/100 WBC (Bld) 14.1 % Low 20.0-40.0 [facility] ([place]) Comment on above: Performed By: #### C BC, ADIFF, GFR, MG, ANEU, PBNP, RFP ####[address] [address] Monocyte, Absolute 1.5 10 3/mcL High 0.1-1.4 [facility] ([place]) Comment on above: Performed By: #### C BC, ADIFF, GFR, MG, ANEU, PBNP, RFP ####[address] [address] Monocytes/100 WBC (Bld) 8.7 % Normal 2.0-13.0 [facility] ([place]) Comment on above: Performed By: #### C BC, ADIFF, GFR, MG, ANEU, PBNP, RFP ####[address] [address] Neutrophils/100 WBC (Bld) 74.0 % Normal 50.0-75.0 [facility] ([place]) Comment on above: Performed By: #### C BC, ADIFF, GFR, MG, ANEU, PBNP, RFP ####[address] [address] .GFRon 04-28-2024 GFR Non- 30 ml/min/1.73sqm Normal [facility] ([place]) Comment on above: Result Comment: GFR Population mean for , Non- Americans Ages 20-29 = 116 mL/min/1.73 sq.m. Ages 30-39 = 107 mL/min/1.73 sq.m. Ages 40-49 = 99 mL/min/1.73 sq.m. Ages 50-59 = 93 mL/min/1.73 sq.m. Ages 60-69 = 85 mL/min/1.73 sq.m. Ages 70+ = 75 mL/min/1.73 sq.m.Chronic Kidney Disease: Less than 60 mL/min/1.73 square metersEnd Stage Renal Disease: Less than 15 mL/min/1.73 square meters Performed By: #### C BC, ADIFF, GFR, MG, ANEU, PBNP, RFP ####[address] [address] GFR 37 ml/min/1.73sqm Normal [facility] ([place]) Comment on above: Result Comment: GFR Population mean for , Non- Americans Ages 20-29 = 116 mL/min/1.73 sq.m. Ages 30-39 = 107 mL/min/1.73 sq.m. Ages 40-49 = 99 mL/min/1.73 sq.m. Ages 50-59 = 93 mL/min/1.73 sq.m. Ages 60-69 = 85 mL/min/1.73 sq.m. Ages 70+ = 75 mL/min/1.73 sq.m.Chronic Kidney Disease: Less than 60 mL/min/1.73 square metersEnd Stage Renal Disease: Less than 15 mL/min/1.73 square meters Performed By: #### C BC, ADIFF, GFR, MG, ANEU, PBNP, RFP ####[address] [address] .NEUABSon 04-28-2024 Neutrophil, Absolute 12.5 10 3/mcL High 2.3-8.1 [facility] ([place]) Comment on above: Performed By: #### C BC, ADIFF, GFR, MG, ANEU, PBNP, RFP ####[place] [address] APTTon 04-28-2024 aPTT Coag (Bld) [Time] 33.5 s Normal 25.0-35.0 [facility] ([place]) Comment on above: Result Comment: For Heparin anticoagulation therapy, the recommendedtherapeutic range is: 54-77 seconds (APTT Correlationwith Anti-Xa therapeutic range of 0.3-0.7 units/ml).PLEASE REFERENCE THE PHARMACY PROTOCOL FOR DOSING. Heparin dose (APTT) Heparin IV Normal [facility] ([place]) aPTT Coag (Bld) [Time] 35.7 s High 25.0-35.0 [facility] ([place]) Comment on above: Result Comment: For Heparin anticoagulation therapy, the recommendedtherapeutic range is: 54-77 seconds (APTT Correlationwith Anti-Xa therapeutic range of 0.3-0.7 units/ml).PLEASE REFERENCE THE PHARMACY PROTOCOL FOR DOSING. Heparin dose (APTT) Heparin IV Normal [facility] ([place]) aPTT Coag (Bld) [Time] 34.4 s Normal 25.0-35.0 [facility] ([place] Comment on above: Result Comment: For Heparin anticoagulation therapy, the recommendedtherapeutic range is: 54-77 seconds (APTT Correlationwith Anti-Xa therapeutic range of 0.3-0.7 units/ml).PLEASE REFERENCE THE PHARMACY PROTOCOL FOR DOSING. Performed By: #### C BC, ADIFF, GFR, MG, ANEU, PBNP, RFP ####[place] [address] Heparin dose (APTT) Unknown Normal [facility] ([place]) Comment on above: Performed By: #### C BC, ADIFF, GFR, MG, ANEU, PBNP, RFP ####[place] [address] CBCon 04-28-2024 Erythrocyte distribution width (RBC) [Ratio] 17.9 % High 11.5-15.5 [facility] ([place]) Comment on above: Performed By: #### C BC, ADIFF, GFR, MG, ANEU, PBNP, RFP ####[place] [address] Hematocrit (Bld) [Volume fraction] 28.3 % Low 40.0-52.0 [facility] ([place]) Comment on above: Performed By: #### C BC, ADIFF, GFR, MG, ANEU, PBNP, RFP ####[place] [address] Hgb 9.1 G/dL Low 13.0-17.5 [facility] ([place] Comment on above: Performed By: #### C BC, ADIFF, GFR, MG, ANEU, PBNP, RFP ####[place] [address] MCH (RBC) [Entitic mass] 26.8 pg Low 27.0-33.0 [facility] ([place]) Comment on above: Performed By: #### C BC, ADIFF, GFR, MG, ANEU, PBNP, RFP ####[place] [address] MCHC 32.1 G/dL Normal 32.0-36.0 [facility] ([place] Comment on above: Performed By: #### C BC, ADIFF, GFR, MG, ANEU, PBNP, RFP ####[place] [address] MCV (RBC) [Entitic vol] 83.5 fL Normal 81.0-100.0 [facility] ([place] Comment on above: Performed By: #### C BC, ADIFF, GFR, MG, ANEU, PBNP, RFP ####[place] [address] Platelet 561 10 3/mcL High 150-450 [facility] ([place] Comment on above: Performed By: #### C BC, ADIFF, GFR, MG, ANEU, PBNP, RFP ####[place] [address] Platelet mean volume (Bld) [Entitic vol] 9.3 fL Normal 6.4-10.5 [facility] ([place] Comment on above: Performed By: #### C BC, ADIFF, GFR, MG, ANEU, PBNP, RFP ####[place] [address] RBC 3.39 10 6/mcL Low 4.50-6.00 [facility] ([place] Comment on above: Performed By: #### C BC, ADIFF, GFR, MG, ANEU, PBNP, RFP ####[place] [address] WBC 16.9 10 3/mcL High 4.5-10.8 [facility] ([place]) Comment on above: Performed By: #### C BC, ADIFF, GFR, MG, ANEU, PBNP, RFP ####[place] [address] DIGon 04-28-2024 LDose Digoxin: See eMAR Normal [facility] ([place]) Comment on above: Performed By: #### D IG ####[place] [address] Digoxin Level 0.44 ng/mL Low 0.80-2.00 [facility] ([place]) Comment on above: Performed By: #### D IG ####[place] [address] LABORATORYOrdered By: Yamel Carlos on 04-28-2024 aPTT Coag (Bld) [Time] 33.5 s Normal 25.0 - 35.0 seconds AH [facility] SS Comment on above: Interpretive Data: F or Heparin anticoagulation therapy, the recommended therapeutic range is: 54-77 seconds (APTT Correlation with Anti-Xa therapeutic range of 0.3-0.7 units/ml). PLEASE REFERENCE THE PHARMACY PROTOCOL FOR DOSING. Heparin dose (APTT) Heparin IV (04/28/24 10:36 PM) Normal AH Coagulation S LABORATORYOrdered By: SYSTEM SYSTEM on 04-28-2024 Digoxin [Mass/Vol] 0.44 ng/mL Low 0.80 - 2.00 ng/mL AH ADM SS Phosphate [Mass/Vol] 4.7 mg/dL Normal 2.4 - 5 .1 mg/dL AH ADM SS Comment on above: Interpretive Data: * *Note - New Reference Range in effect 20 LABORATORYOrdered By: Heber Mcmullen on 04-28-2024 LDose Digoxin: See eMAR (04/28/24 7:08 PM) Normal AH Chemistry S LABORATORYOrdered By: Petra De Jesus on 04-28-2024 aPTT Coag (Bld) [Time] 35.7 s High 25.0 - 35.0 seconds AH [facility] SS Comment on above: Interpretive Data: F or Heparin anticoagulation therapy, the recommended therapeutic range is: 54-77 seconds (APTT Correlation with Anti-Xa therapeutic range of 0.3-0.7 units/ml). PLEASE REFERENCE THE PHARMACY PROTOCOL FOR DOSING. Heparin dose (APTT) Heparin IV (04/28/24 2:58 PM) Normal Coagulation S LABORATORYOrdered By: Missy wilson on 04-28-2024 Natriuretic peptide.B prohormone N-Terminal IA [Mass/Vol] 73323 pg/mL High 0 - 450 pg/mL ADM SS MGon 04-28-2024 Magnesium [Mass/Vol] 1.6 mg/dL Normal 1.6-2.4 [facility] ([place]) Comment on above: Performed By: #### C BC, ADIFF, GFR, MG, ANEU, PBNP, RFP ####[place] [address] PBNPon 04-28-2024 Natriuretic peptide B (Bld) [Mass/Vol] 562[address] pg/mL High 0-450 [facility] ([place]) Comment on above: Performed By: #### C BC, ADIFF, GFR, MG, ANEU, PBNP, RFP ####[address] [address] RFPon 04-28-2024 Albumin Level 1.5 G/dL Low 3.2-4.8 [facility] ([place] Comment on above: Performed By: #### C BC, ADIFF, GFR, MG, ANEU, PBNP, RFP ####[place] [address] BUN/Creatinine Ratio 21.2 ratio Normal 10.0-22.0 [facility] ([place] Comment on above: Performed By: #### C BC, ADIFF, GFR, MG, ANEU, PBNP, RFP ####[place] [address] Calcium [Mass/Vol] 8.0 mg/dL Low 8.7-10.4 [facility] ([place] Comment on above: Performed By: #### C BC, ADIFF, GFR, MG, ANEU, PBNP, RFP ####[place] [address] Chloride [Moles/Vol] 107 mmol/L Normal 98-110 [facility] ([place] Comment on above: Performed By: #### C BC, ADIFF, GFR, MG, ANEU, PBNP, RFP ####[place] [address] CO2 [Moles/Vol] 19 mmol/L Low 22-32 [facility] ([place] Comment on above: Performed By: #### C BC, ADIFF, GFR, MG, ANEU, PBNP, RFP ####[place] [address] Creatinine [Mass/Vol] 2.31 mg/dL High 0.60-1.40 [facility] ([place]) Comment on above: Performed By: #### C BC, ADIFF, GFR, MG, ANEU, PBNP, RFP ####[place] [address] Electrolyte Balance 7.0 mEq/L Normal 4.0-15.0 [facility] ([place] Comment on above: Performed By: #### C BC, ADIFF, GFR, MG, ANEU, PBNP, RFP ####[address] [address] Glucose [Mass/Vol] 138 mg/dL High 70-110 [facility] ([place] Comment on above: Performed By: #### C BC, ADIFF, GFR, MG, ANEU, PBNP, RFP ####[address] [address] Phosphate [Mass/Vol] 4.7 mg/dL Normal 2.4-5.1 [facility] ([place]) Comment on above: Result Comment: No te - New Reference Range in effect 20 Performed By: #### C BC, ADIFF, GFR, MG, ANEU, PBNP, RFP ####[place] [id number] [place] [address] Potassium [Moles/Vol] 4.2 mmol/L Normal 3.5-5.0 [facility] ([place]) Comment on above: Performed By: #### C BC, ADIFF, GFR, MG, ANEU, PBNP, RFP ####[address] [address] Sodium [Moles/Vol] 133 mmol/L Low 136-145 [facility] ([place] Comment on above: Performed By: #### C BC, ADIFF, GFR, MG, ANEU, PBNP, RFP ####[address] [address] Urea nitrogen [Mass/Vol] 49.0 mg/dL High 8.0-22.0 [facility] ([place]) Comment on above: Performed By: #### C BC, ADIFF, GFR, MG, ANEU, PBNP, RFP ####[address] [address] XR CHEST 1 VIEWon 04-28-2024 XR CHEST 1 VIEW Normal [facility] ([place]) .GFRon 04-27-2024 GFR 37 ml/min/1.73sqm Normal [facility] ([place]) Comment on above: Result Comment: GFR Population mean for , Non- Americans Ages 20-29 = 116 mL/min/1.73 sq.m. Ages 30-39 = 107 mL/min/1.73 sq.m. Ages 40-49 = 99 mL/min/1.73 sq.m. Ages 50-59 = 93 mL/min/1.73 sq.m. Ages 60-69 = 85 mL/min/1.73 sq.m. Ages 70+ = 75 mL/min/1.73 sq.m.Chronic Kidney Disease: Less than 60 mL/min/1.73 square metersEnd Stage Renal Disease: Less than 15 mL/min/1.73 square meters Performed By: #### G FR, DIFF, CBC, MG, RFP, MORPH ####[address] [id number] GFR Non- 31 ml/min/1.73sqm Normal [facility] ([place]) Comment on above: Result Comment: GFR Population mean for , Non- Americans Ages 20-29 = 116 mL/min/1.73 sq.m. Ages 30-39 = 107 mL/min/1.73 sq.m. Ages 40-49 = 99 mL/min/1.73 sq.m. Ages 50-59 = 93 mL/min/1.73 sq.m. Ages 60-69 = 85 mL/min/1.73 sq.m. Ages 70+ = 75 mL/min/1.73 sq.m.Chronic Kidney Disease: Less than 60 mL/min/1.73 square metersEnd Stage Renal Disease: Less than 15 mL/min/1.73 square meters Performed By: #### G FR, DIFF, CBC, MG, RFP, MORPH ####[place] [address] .Manual Diffon 04-27-2024 Bands 2.0 % Normal 0.0-5.0 [facility] ([place]) Comment on above: Performed By: #### D IFF, PRO, CBC, MORPH ####[place] [address] Basophil %, Manual 2.0 % Normal 0.0-2.5 [facility] ([place]) Comment on above: Performed By: #### Deonte IFF, PRO, CBC, MORPH ####[place] [address] Basophil, Abs Manual 0.3 10 3/mcL Normal 0.0-0.3 [facility] ([place]) Comment on above: Performed By: #### D IFF, PRO, CBC, MORPH ####[address] [address] Eosinophil %, Manual 4.0 % Normal 0.0-6.0 [facility] ([place]) Comment on above: Performed By: #### D IFF, PRO, CBC, MORPH ####[address] [address] Eosinophil, Abs Manual 0.6 10 3/mcL Normal 0.0-0.7 [facility] ([place]) Comment on above: Performed By: #### D IFF, PRO, CBC, MORPH ####[address] [address] Lymphocyte %, Manual 8.0 % Low 20.0-40.0 [facility] ([place] Comment on above: Performed By: #### D IFF, PRO, CBC, MORPH ####[address] [address] Lymphocyte, Abs Manual 1.3 10 3/mcL Normal 0.9-4.3 [facility] ([place]) Comment on above: Performed By: #### D IFF, PRO, CBC, MORPH ####[address] [address] Monocyte %, Manual 4.0 % Normal 2.0-13.0 [facility] ([place] Comment on above: Performed By: #### D IFF, PRO, CBC, MORPH ####[address] [address] Monocyte, Abs Manual 0.7 10 3/mcL Normal 0.1-1.4 [facility] ([place] Comment on above: Performed By: #### D IFF, PRO, CBC, MORPH ####[address] [address] Neutrophil %, Manual 80.0 % High 50.0-75.0 [facility] ([place] Comment on above: Performed By: #### D IFF, PRO, CBC, MORPH ####[address] [address] Neutrophil, Abs Manual 13.2 10 3/mcL High 2.3-8.1 [facility] ([place]) Comment on above: Performed By: #### D IFF, PRO, CBC, MORPH ####[address] [address] Nucleated RBC 0.0 /100 WBC Normal [facility] ([place] Comment on above: Performed By: #### D IFF, PRO, CBC, MORPH ####[address] [address] Bands 5.0 % Normal 0.0-5.0 [facility] ([place] Comment on above: Performed By: #### G FR, DIFF, CBC, MG, RFP, MORPH ####[address] [address] Basophil %, Manual 0.0 % Normal 0.0-2.5 [facility] ([place] Comment on above: Performed By: #### G FR, DIFF, CBC, MG, RFP, MORPH ####[address] [address] Basophil, Abs Manual 0.0 10 3/mcL Normal 0.0-0.3 [facility] ([place] Comment on above: Performed By: #### G FR, DIFF, CBC, MG, RFP, MORPH ####[address] [address] Eosinophil %, Manual 3.0 % Normal 0.0-6.0 [facility] ([place] Comment on above: Performed By: #### G FR, DIFF, CBC, MG, RFP, MORPH ####[address] [address] Eosinophil, Abs Manual 0.5 10 3/mcL Normal 0.0-0.7 [facility] ([place] Comment on above: Performed By: #### G FR, DIFF, CBC, MG, RFP, MORPH ####[address] [address] Lymphocyte %, Manual 10.0 % Low 20.0-40.0 [facility] ([place] Comment on above: Performed By: #### G FR, DIFF, CBC, MG, RFP, MORPH ####[address] [address] Lymphocyte, Abs Manual 1.7 10 3/mcL Normal 0.9-4.3 [facility] ([place] Comment on above: Performed By: #### G FR, DIFF, CBC, MG, RFP, MORPH ####[place] [address] Metamyelocyte 1.0 % Normal [facility] ([place] Comment on above: Performed By: #### G FR, DIFF, CBC, MG, RFP, MORPH ####[address] [address] Monocyte %, Manual 16.0 % High 2.0-13.0 [facility] ([place] Comment on above: Performed By: #### G FR, DIFF, CBC, MG, RFP, MORPH ####[place] [address] Monocyte, Abs Manual 2.7 10 3/mcL High 0.1-1.4 [facility] ([place] Comment on above: Performed By: #### G FR, DIFF, CBC, MG, RFP, MORPH ####[place] [address] Neutrophil %, Manual 65.0 % Normal 50.0-75.0 [facility] ([place] Comment on above: Performed By: #### G FR, DIFF, CBC, MG, RFP, MORPH ####[place] [id number] Neutrophil, Abs Manual 11.6 10 3/mcL High 2.3-8.1 [facility] ([place] Comment on above: Performed By: #### G FR, DIFF, CBC, MG, RFP, MORPH ####[place] [address] Nucleated RBC 0.0 /100 WBC Normal [facility] ([place] Comment on above: Performed By: #### G FR, DIFF, CBC, MG, RFP, MORPH ####[place] [address] .Morphon 04-27-2024 Platelet Estimate Slt Increased Normal [facility] ([place] Comment on above: Performed By: #### D IFF, PRO, CBC, MORPH ####[place] [address] Anisocytosis Ql (Bld) 1+ Normal [facility] ([place] Comment on above: Performed By: #### D IFF, PRO, CBC, MORPH ####[place] [address] Anisocytosis Ql (Bld) 1+ Normal [facility] ([place] Comment on above: Performed By: #### G FR, DIFF, CBC, MG, RFP, MORPH ####[place] [address] Microcytosis 1+ Normal [facility] ([place] Comment on above: Performed By: #### G FR, DIFF, CBC, MG, RFP, MORPH ####[place] [address] Platelet Estimate Increased Normal [facility] ([place] Comment on above: Performed By: #### G FR, DIFF, CBC, MG, RFP, MORPH ####[place] [address] Polychrom 1+ Normal [facility] ([place] Comment on above: Performed By: #### G FR, DIFF, CBC, MG, RFP, MORPH ####[place] [address] Toxic Gran 1+ Normal [facility] ([place]) Comment on above: Performed By: #### G FR, DIFF, CBC, MG, RFP, MORPH ####[place] [address] APTTon 04-27-2024 aPTT Coag (Bld) [Time] 33.1 s Normal 25.0-35.0 [facility] ([place] Comment on above: Result Comment: For Heparin anticoagulation therapy, the recommendedtherapeutic range is: 54-77 seconds (APTT Correlationwith Anti-Xa therapeutic range of 0.3-0.7 units/ml).PLEASE REFERENCE THE PHARMACY PROTOCOL FOR DOSING. Heparin dose (APTT) Unknown Normal [facility] ([place]) aPTT Coag (Bld) [Time] 32.3 s Normal 25.0-35.0 [facility] ([place]) Comment on above: Result Comment: For Heparin anticoagulation therapy, the recommendedtherapeutic range is: 54-77 seconds (APTT Correlationwith Anti-Xa therapeutic range of 0.3-0.7 units/ml).PLEASE REFERENCE THE PHARMACY PROTOCOL FOR DOSING. Heparin dose (APTT) Heparin IV Normal [facility] ([place]) aPTT Coag (Bld) [Time] 34.0 s Normal 25.0-35.0 [facility] ([place] Comment on above: Result Comment: For Heparin anticoagulation therapy, the recommendedtherapeutic range is: 54-77 seconds (APTT Correlationwith Anti-Xa therapeutic range of 0.3-0.7 units/ml).PLEASE REFERENCE THE PHARMACY PROTOCOL FOR DOSING. Performed By: #### D IFF, PRO, CBC, MORPH ####[place] [address] Heparin dose (APTT) Heparin IV Normal [facility] ([place] Comment on above: Performed By: #### D IFF, PRO, CBC, MORPH ####[place] [address] CBCon 04-27-2024 Erythrocyte distribution width (RBC) [Ratio] 16.9 % High 11.5-15.5 [facility] ([place]) Comment on above: Performed By: #### D IFF, PRO, CBC, MORPH ####[place] [address] Hematocrit (Bld) [Volume fraction] 28.0 % Low 40.0-52.0 [facility] ([place] Comment on above: Performed By: #### D IFF, PRO, CBC, MORPH ####[place] [address] Hgb 8.8 G/dL Low 13.0-17.5 [facility] ([place] Comment on above: Performed By: #### D IFF, PRO, CBC, MORPH ####[place] [address] MCH (RBC) [Entitic mass] 26.0 pg Low 27.0-33.0 [facility] ([place] Comment on above: Performed By: #### D IFF, PRO, CBC, MORPH ####[place] [address] MCHC 31.3 G/dL Low 32.0-36.0 [facility] ([place] Comment on above: Performed By: #### D IFF, PRO, CBC, MORPH ####[place] [address] MCV (RBC) [Entitic vol] 83.1 fL Normal 81.0-100.0 [facility] ([place]) Comment on above: Performed By: #### D IFF, PRO, CBC, MORPH ####[place] [address] Platelet 535 10 3/mcL High 150-450 [facility] ([place] Comment on above: Performed By: #### D IFF, PRO, CBC, MORPH ####[place] [address] Platelet mean volume (Bld) [Entitic vol] 9.6 fL Normal 6.4-10.5 [facility] ([place] Comment on above: Performed By: #### D IFF, PRO, CBC, MORPH ####[place] [address] RBC 3.37 10 6/mcL Low 4.50-6.00 [facility] ([place] Comment on above: Performed By: #### D IFF, PRO, CBC, MORPH ####[place] [address] WBC 16.1 10 3/mcL High 4.5-10.8 [facility] ([place] Comment on above: Performed By: #### D IFF, PRO, CBC, MORPH ####[place] [address] Erythrocyte distribution width (RBC) [Ratio] 16.9 % High 11.5-15.5 [facility] ([place]) Comment on above: Performed By: #### G FR, DIFF, CBC, MG, RFP, MORPH ####[place] [address] Hematocrit (Bld) [Volume fraction] 28.9 % Low 40.0-52.0 [facility] ([place] Comment on above: Performed By: #### G FR, DIFF, CBC, MG, RFP, MORPH ####[place] [address] Hgb 9.1 G/dL Low 13.0-17.5 [facility] ([place] Comment on above: Performed By: #### G FR, DIFF, CBC, MG, RFP, MORPH ####[place] [address] MCH (RBC) [Entitic mass] 26.3 pg Low 27.0-33.0 [facility] ([place] Comment on above: Performed By: #### G FR, DIFF, CBC, MG, RFP, MORPH ####[place] [address] MCHC 31.6 G/dL Low 32.0-36.0 [facility] ([place] Comment on above: Performed By: #### G FR, DIFF, CBC, MG, RFP, MORPH ####[place] [address] MCV (RBC) [Entitic vol] 83.2 fL Normal 81.0-100.0 [facility] ([place] Comment on above: Performed By: #### G FR, DIFF, CBC, MG, RFP, MORPH ####[place] [address] Platelet 594 10 3/mcL High 150-450 [facility] ([place] Comment on above: Performed By: #### G FR, DIFF, CBC, MG, RFP, MORPH ####[place] [address] Platelet mean volume (Bld) [Entitic vol] 9.4 fL Normal 6.4-10.5 [facility] ([place] Comment on above: Performed By: #### G FR, DIFF, CBC, MG, RFP, MORPH ####[place] [address] RBC 3.48 10 6/mcL Low 4.50-6.00 [facility] ([place]) Comment on above: Performed By: #### G FR, DIFF, CBC, MG, RFP, MORPH ####[place] [phone] [address] [place] [address] WBC 16.7 10 3/mcL High 4.5-10.8 [facility] ([place]) Comment on above: Performed By: #### G FR, DIFF, CBC, MG, RFP, MORPH ####[place] [id number] [address] [place] [id number] LABORATORYOrdered By: Samra Guillaume on 04-27-2024 Blood Glucose Interventions Administered agent to decrease blood sugar (04/27/24 11:36 AM) [facility] Work Phone: LABORATORYOrdered By: SYSTEM SYSTEM on 04-27-2024 Anisocytosis Ql (Bld) 1+ *NA* (04/27/24 9:40 AM) Invalid Interpretation Code Workflow SS Band form neutrophils/100 WBC (Bld) 2.0 % Normal 0.0 - 5.0 % Workflow SS Basophils (Bld) [#/Vol] 0.3 103/mcL Normal 0.0 - 0.3 10^3/mcL Workflow SS Basophils/100 WBC (Bld) 2.0 % Normal 0.0 - 2.5 % AH Workflow SS Eosinophils (Bld) [#/Vol] 0.6 103/mcL Normal 0.0 - 0.7 10^3/mcL Workflow SS Eosinophils/100 WBC (Bld) 4.0 % Normal 0.0 - 6.0 % AH Workflow SS Lymphocytes (Bld) [#/Vol] 1.3 103/mcL Normal 0.9 - 4.3 10^3/mcL Workflow SS Lymphocytes/100 WBC (Bld) 8.0 % Low 20.0 - 40.0 % AH Workflow SS Monocytes (Bld) [#/Vol] 0.7 103/mcL Normal 0.1 - 1.4 10^3/mcL AH Workflow SS Monocytes/100 WBC (Bld) 4.0 % Normal 2.0 - 13.0 % AH Workflow SS Neutrophils (Bld) [#/Vol] 13.2 103/mcL High 2.3 - 8.1 10^3/mcL AH Workflow SS Neutrophils/100 WBC (Bld) 80.0 % High 50.0 - 75.0 % AH Workflow SS Nucleated RBC 0.0 /100 WBC Invalid Interpretation Code Workflow SS Platelets LM Ql (Bld) Slt Increased *NA* (04/27/24 9:40 AM) Invalid Interpretation Code Workflow SS Anisocytosis Ql (Bld) 1+ *NA* (04/27/24 3:43 AM) Invalid Interpretation Code Workflow SS Band form neutrophils/100 WBC (Bld) 5.0 % Normal 0.0 - 5.0 % AH Workflow SS Basophils (Bld) [#/Vol] 0.0 103/mcL Normal 0.0 - 0.3 10^3/mcL AH Workflow SS Basophils/100 WBC (Bld) 0.0 % Normal 0.0 - 2.5 % AH Workflow SS Eosinophils (Bld) [#/Vol] 0.5 103/mcL Normal 0.0 - 0.7 10^3/mcL AH Workflow SS Eosinophils/100 WBC (Bld) 3.0 % Normal 0.0 - 6.0 % AH Workflow SS Lymphocytes (Bld) [#/Vol] 1.7 103/mcL Normal 0.9 - 4.3 10^3/mcL AH Workflow SS Lymphocytes/100 WBC (Bld) 10.0 % Low 20.0 - 40.0 % AH Workflow SS Metamyelocytes/100 WBC (Bld) 1.0 % Invalid Interpretation Code Workflow SS Microcytes Ql (Bld) 1+ *NA* (04/27/24 3:43 AM) Invalid Interpretation Code Workflow SS Monocytes (Bld) [#/Vol] 2.7 103/mcL High 0.1 - 1.4 10^3/mcL AH Workflow SS Monocytes/100 WBC (Bld) 16.0 % High 2.0 - 13.0 % AH Workflow SS Neutrophils (Bld) [#/Vol] 11.6 103/mcL High 2.3 - 8.1 10^3/mcL AH Workflow SS Neutrophils/100 WBC (Bld) 65.0 % Normal 50.0 - 75.0 % AH Workflow SS Nucleated RBC 0.0 /100 WBC Invalid Interpretation Code Workflow SS Phosphate [Mass/Vol] 4.7 mg/dL Normal 2.4 - 5 .1 mg/dL AH ADM SS Comment on above: Interpretive Data: * *Note - New Reference Range in effect 20 Platelets LM Ql (Bld) Increased *NA* (04/27/24 3:43 AM) Invalid Interpretation Code Workflow SS Polychromasia LM Ql (Bld) 1+ *NA* (04/27/24 3:43 AM) Invalid Interpretation Code Workflow SS Toxic Gran 1+ *NA* (04/27/24 3:43 AM) Invalid Interpretation Code Workflow SS LABORATORYOrdered By: Samra Cortes on 04-27-2024 PT Coag (PPP) [Time] 15.6 s High 9.0 - 1 4.4 seconds [facility] SS Comment on above: Interpretive Data: E ffective 06/02/08, Protime results may be affected by some antibiotics (i.e. Ciprofloxacin, Azithromycin, Bactrim) which may potentiate the action of oral anticoagulants, with further increases in Protime/INR. PT International Ratio 1.4 ratio Invalid Interpretation Code [facility] SS Comment on above: Interpretive Data: Alexis briones [employer] (CHEST, 1991, 102:[id number]) recommended therapeutic range for oral anticoagulant therapy is: LOW RISK: Prophylaxis of venous thrombosis INR: 2.0-3.0 Treatment of pulmonary embolism 2.0-3.0 Prevention of systemic embolism 2.0-3.0 HIGH RISK: Mechanical prosthetic valves 2.5-3.5 MGon 04-27-2024 Magnesium [Mass/Vol] 1.7 mg/dL Normal 1.6-2.4 [facility] ([place]) Comment on above: Performed By: #### G FR, DIFF, CBC, MG, RFP, MORPH ####[place] [address] PROon 04-27-2024 INR Coag (PPP) [Relative time] 1.4 {INR} Normal [facility] ([place]) Comment on above: Result Comment: [employer] (CHEST, 1991, 102:[id number])recommended therapeutic range for oral anticoagulant therapy is:LOW RISK: Prophylaxis of venous thrombosis INR: 2.0-3.0 Treatment of pulmonary embolism 2.0-3.0 Prevention of systemic embolism 2.0-3.0HIGH RISK: Mechanical prosthetic valves 2.5-3.5 Performed By: #### D IFF, PRO, CBC, MORPH ####[address] [address] PT Coag (PPP) [Time] 15.6 s High 9.0-14.4 [facility] ([place]) Comment on above: Result Comment: Effe ctive 06/02/08, Protime results may be affected by some antibiotics (i.e. Ciprofloxacin, Azithromycin, Bactrim) which may potentiate the action of oral anticoagulants, with further increases in Protime/INR. Performed By: #### D IFF, PRO, CBC, MORPH ####[place] [address] RFPon 04-27-2024 Albumin Level 1.2 G/dL Low 3.2-4.8 [facility] ([place]) Comment on above: Performed By: #### G FR, DIFF, CBC, MG, RFP, MORPH ####[place] [address] BUN/Creatinine Ratio 24.0 ratio High 10.0-22.0 [facility] ([place]) Comment on above: Performed By: #### G FR, DIFF, CBC, MG, RFP, MORPH ####[place] [address] Calcium [Mass/Vol] 8.0 mg/dL Low 8.7-10.4 [facility] ([place] Comment on above: Performed By: #### G FR, DIFF, CBC, MG, RFP, MORPH ####[address] [address] Chloride [Moles/Vol] 107 mmol/L Normal 98-110 [facility] ([place]) Comment on above: Performed By: #### G FR, DIFF, CBC, MG, RFP, MORPH ####[place] [id number] CO2 [Moles/Vol] 18 mmol/L Low 22-32 [facility] ([place]) Comment on above: Performed By: #### G FR, DIFF, CBC, MG, RFP, MORPH ####[address] [address] Creatinine [Mass/Vol] 2.29 mg/dL High 0.60-1.40 [facility] ([place]) Comment on above: Performed By: #### G FR, DIFF, CBC, MG, RFP, MORPH ####[address] [address] Electrolyte Balance 11.0 mEq/L Normal 4.0-15.0 [facility] ([place]) Comment on above: Performed By: #### G FR, DIFF, CBC, MG, RFP, MORPH ####[place] [address] Glucose [Mass/Vol] 123 mg/dL High 70-110 [facility] ([place] Comment on above: Performed By: #### G FR, DIFF, CBC, MG, RFP, MORPH ####[place] [address] Phosphate [Mass/Vol] 4.7 mg/dL Normal 2.4-5.1 [facility] ([place]) Comment on above: Result Comment: No te - New Reference Range in effect 20 Performed By: #### G FR, DIFF, CBC, MG, RFP, MORPH ####[place] [address] Potassium [Moles/Vol] 4.6 mmol/L Normal 3.5-5.0 [facility] ([place] Comment on above: Performed By: #### G FR, DIFF, CBC, MG, RFP, MORPH ####[address] [address] Sodium [Moles/Vol] 136 mmol/L Normal 136-145 [facility] ([place] Comment on above: Performed By: #### G FR, DIFF, CBC, MG, RFP, MORPH ####[address] [address] Urea nitrogen [Mass/Vol] 55.0 mg/dL High 8.0-22.0 [facility] ([place]) Comment on above: Performed By: #### G FR, DIFF, CBC, MG, RFP, MORPH ####[place] [address] XR CHEST 1 VIEWon 04-27-2024 XR CHEST 1 VIEW Normal [facility] ([place]) .GFRon 04-26-2024 GFR 33 ml/min/1.73sqm Normal [facility] ([place]) Comment on above: Result Comment: GFR Population mean for , Non- Americans Ages 20-29 = 116 mL/min/1.73 sq.m. Ages 30-39 = 107 mL/min/1.73 sq.m. Ages 40-49 = 99 mL/min/1.73 sq.m. Ages 50-59 = 93 mL/min/1.73 sq.m. Ages 60-69 = 85 mL/min/1.73 sq.m. Ages 70+ = 75 mL/min/1.73 sq.m.Chronic Kidney Disease: Less than 60 mL/min/1.73 square metersEnd Stage Renal Disease: Less than 15 mL/min/1.73 square meters Performed By: #### C BC, BMP, MORPH, GFR, DIFF ####[place] [address] GFR Non- 27 ml/min/1.73sqm Normal [facility] ([place]) Comment on above: Result Comment: GFR Population mean for , Non- Americans Ages 20-29 = 116 mL/min/1.73 sq.m. Ages 30-39 = 107 mL/min/1.73 sq.m. Ages 40-49 = 99 mL/min/1.73 sq.m. Ages 50-59 = 93 mL/min/1.73 sq.m. Ages 60-69 = 85 mL/min/1.73 sq.m. Ages 70+ = 75 mL/min/1.73 sq.m.Chronic Kidney Disease: Less than 60 mL/min/1.73 square metersEnd Stage Renal Disease: Less than 15 mL/min/1.73 square meters Performed By: #### C BC, BMP, MORPH, GFR, DIFF ####[address] [address] .Manual Diffon 04-26-2024 Bands 2.0 % Normal 0.0-5.0 [facility] ([place] Comment on above: Performed By: #### C BC, BMP, MORPH, GFR, DIFF ####[address] [address] Basophil %, Manual 0.0 % Normal 0.0-2.5 [facility] ([place] Comment on above: Performed By: #### C BC, BMP, MORPH, GFR, DIFF ####[address] [address] Basophil, Abs Manual 0.0 10 3/mcL Normal 0.0-0.3 [facility] ([place]) Comment on above: Performed By: #### C BC, BMP, MORPH, GFR, DIFF ####[address] [address] Eosinophil %, Manual 2.0 % Normal 0.0-6.0 [facility] ([place] Comment on above: Performed By: #### C BC, BMP, MORPH, GFR, DIFF ####[address] [address] Eosinophil, Abs Manual 0.3 10 3/mcL Normal 0.0-0.7 [facility] ([place]) Comment on above: Performed By: #### C BC, BMP, MORPH, GFR, DIFF ####[address] [address] Lymphocyte %, Manual 12.0 % Low 20.0-40.0 [facility] ([place] Comment on above: Performed By: #### C BC, BMP, MORPH, GFR, DIFF ####[address] [address] Lymphocyte, Abs Manual 2.1 10 3/mcL Normal 0.9-4.3 [facility] ([place] Comment on above: Performed By: #### C BC, BMP, MORPH, GFR, DIFF ####[address] [address] Monocyte %, Manual 10.0 % Normal 2.0-13.0 [facility] ([place] Comment on above: Performed By: #### C BC, BMP, MORPH, GFR, DIFF ####[address] [address] Monocyte, Abs Manual 1.7 10 3/mcL High 0.1-1.4 [facility] ([place] Comment on above: Performed By: #### C BC, BMP, MORPH, GFR, DIFF ####[place] [address] Neutrophil %, Manual 74.0 % Normal 50.0-75.0 [facility] ([place] Comment on above: Performed By: #### C BC, BMP, MORPH, GFR, DIFF ####[place] [address] Neutrophil, Abs Manual 13.0 10 3/mcL High 2.3-8.1 [facility] ([place] Comment on above: Performed By: #### C BC, BMP, MORPH, GFR, DIFF ####[place] [address] Nucleated RBC 0.0 /100 WBC Normal [facility] ([place] Comment on above: Performed By: #### C BC, BMP, MORPH, GFR, DIFF ####[place] [address] .Morphon 04-26-2024 Anisocytosis Ql (Bld) 1+ Normal [facility] ([place] Comment on above: Performed By: #### C BC, BMP, MORPH, GFR, DIFF ####[place] [address] Platelet Estimate Slt Increased Normal [facility] ([place] Comment on above: Performed By: #### C BC, BMP, MORPH, GFR, DIFF ####[place] [address] Polychrom 1+ Normal [facility] ([place] Comment on above: Performed By: #### C BC, BMP, MORPH, GFR, DIFF ####[place] [address] BMPon 04-26-2024 BUN/Creatinine Ratio 24.1 ratio High 10.0-22.0 [facility] ([place] Comment on above: Performed By: #### C BC, BMP, MORPH, GFR, DIFF ####[place] [address] Calcium [Mass/Vol] 7.7 mg/dL Low 8.7-10.4 [facility] ([place] Comment on above: Performed By: #### C BC, BMP, MORPH, GFR, DIFF ####[address] [address] Chloride [Moles/Vol] 107 mmol/L Normal 98-110 [facility] ([place] Comment on above: Performed By: #### C BC, BMP, MORPH, GFR, DIFF ####[address] [address] CO2 [Moles/Vol] 19 mmol/L Low 22-32 [facility] ([place] Comment on above: Performed By: #### C BC, BMP, MORPH, GFR, DIFF ####[address] [address] Creatinine [Mass/Vol] 2.57 mg/dL High 0.60-1.40 [facility] ([place] Comment on above: Performed By: #### C BC, BMP, MORPH, GFR, DIFF ####[address] [address] Electrolyte Balance 9.0 mEq/L Normal 4.0-15.0 [facility] ([place] Comment on above: Performed By: #### C BC, BMP, MORPH, GFR, DIFF ####[address] [address] Glucose [Mass/Vol] 138 mg/dL High 70-110 [facility] ([place] Comment on above: Performed By: #### C BC, BMP, MORPH, GFR, DIFF ####[address] [address] Potassium [Moles/Vol] 5.0 mmol/L Normal 3.5-5.0 [facility] ([place] Comment on above: Performed By: #### C BC, BMP, MORPH, GFR, DIFF ####[address] [address] Sodium [Moles/Vol] 135 mmol/L Low 136-145 [facility] ([place] Comment on above: Performed By: #### C BC, BMP, MORPH, GFR, DIFF ####[place] [address] Urea nitrogen [Mass/Vol] 62.0 mg/dL High 8.0-22.0 [facility] ([place]) Comment on above: Performed By: #### C BC, BMP, MORPH, GFR, DIFF ####[place] [address] CBCon 04-26-2024 Erythrocyte distribution width (RBC) [Ratio] 16.9 % High 11.5-15.5 [facility] ([place] Comment on above: Performed By: #### C BC, BMP, MORPH, GFR, DIFF ####[place] [address] Hematocrit (Bld) [Volume fraction] 27.5 % Low 40.0-52.0 [facility] ([place] Comment on above: Performed By: #### C BC, BMP, MORPH, GFR, DIFF ####[place] [address] Hgb 8.9 G/dL Low 13.0-17.5 [facility] ([place] Comment on above: Performed By: #### C BC, BMP, MORPH, GFR, DIFF ####[place] [address] MCH (RBC) [Entitic mass] 26.5 pg Low 27.0-33.0 [facility] ([place] Comment on above: Performed By: #### C BC, BMP, MORPH, GFR, DIFF ####[place] [address] MCHC 32.3 G/dL Normal 32.0-36.0 [facility] ([place] Comment on above: Performed By: #### C BC, BMP, MORPH, GFR, DIFF ####[place] [address] MCV (RBC) [Entitic vol] 82.0 fL Normal 81.0-100.0 [facility] ([place]) Comment on above: Performed By: #### C BC, BMP, MORPH, GFR, DIFF ####[place] [id number] Platelet 517 10 3/mcL High 150-450 [facility] ([place]) Comment on above: Performed By: #### C BC, BMP, MORPH, GFR, DIFF ####[address] [address] Platelet mean volume (Bld) [Entitic vol] 10.3 fL Normal 6.4-10.5 [facility] ([place]) Comment on above: Performed By: #### C BC, BMP, MORPH, GFR, DIFF ####[address] [address] RBC 3.36 10 6/mcL Low 4.50-6.00 [facility] ([place]) Comment on above: Performed By: #### C BC, BMP, MORPH, GFR, DIFF ####[address] [address] WBC 17.2 10 3/mcL High 4.5-10.8 [facility] ([place]) Comment on above: Performed By: #### C BC, BMP, MORPH, GFR, DIFF ####[address] [address] LABORATORYOrdered By: SYSTEM SYSTEM on 04-26-2024 Anisocytosis Ql (Bld) 1+ *NA* (04/26/24 3:19 AM) Invalid Interpretation Code AH Workflow SS Band form neutrophils/100 WBC (Bld) 2.0 % Normal 0.0 - 5.0 % AH Workflow SS Basophils (Bld) [#/Vol] 0.0 103/mcL Normal 0.0 - 0.3 10^3/mcL AH Workflow SS Basophils/100 WBC (Bld) 0.0 % Normal 0.0 - 2.5 % AH Workflow SS Eosinophils (Bld) [#/Vol] 0.3 103/mcL Normal 0.0 - 0.7 10^3/mcL AH Workflow SS Eosinophils/100 WBC (Bld) 2.0 % Normal 0.0 - 6.0 % AH Workflow SS Lymphocytes (Bld) [#/Vol] 2.1 103/mcL Normal 0.9 - 4.3 10^3/mcL AH Workflow SS Lymphocytes/100 WBC (Bld) 12.0 % Low 20.0 - 40.0 % AH Workflow SS Monocytes (Bld) [#/Vol] 1.7 103/mcL High 0.1 - 1.4 10^3/mcL AH Workflow SS Monocytes/100 WBC (Bld) 10.0 % Normal 2.0 - 13.0 % AH Workflow SS Neutrophils (Bld) [#/Vol] 13.0 103/mcL High 2.3 - 8.1 10^3/mcL AH Workflow SS Neutrophils/100 WBC (Bld) 74.0 % Normal 50.0 - 75.0 % AH Workflow SS Nucleated RBC 0.0 /100 WBC Invalid Interpretation Code AH Workflow SS Platelets LM Ql (Bld) Slt Increased *NA* (04/26/24 3:19 AM) Invalid Interpretation Code AH Workflow SS Polychromasia LM Ql (Bld) 1+ *NA* (04/26/24 3:19 AM) Invalid Interpretation Code AH Workflow SS .GFRon 04-25-2024 GFR 33 ml/min/1.73sqm Normal [facility] ([place]) Comment on above: Result Comment: GFR Population mean for , Non- Americans Ages 20-29 = 116 mL/min/1.73 sq.m. Ages 30-39 = 107 mL/min/1.73 sq.m. Ages 40-49 = 99 mL/min/1.73 sq.m. Ages 50-59 = 93 mL/min/1.73 sq.m. Ages 60-69 = 85 mL/min/1.73 sq.m. Ages 70+ = 75 mL/min/1.73 sq.m.Chronic Kidney Disease: Less than 60 mL/min/1.73 square metersEnd Stage Renal Disease: Less than 15 mL/min/1.73 square meters Performed By: #### M ORPH, CAION, BMP, FERR, DIFF, GFR, CBC, FES ####[place] [address] GFR Non- 27 ml/min/1.73sqm Normal [facility] ([place]) Comment on above: Result Comment: GFR Population mean for , Non- Americans Ages 20-29 = 116 mL/min/1.73 sq.m. Ages 30-39 = 107 mL/min/1.73 sq.m. Ages 40-49 = 99 mL/min/1.73 sq.m. Ages 50-59 = 93 mL/min/1.73 sq.m. Ages 60-69 = 85 mL/min/1.73 sq.m. Ages 70+ = 75 mL/min/1.73 sq.m.Chronic Kidney Disease: Less than 60 mL/min/1.73 square metersEnd Stage Renal Disease: Less than 15 mL/min/1.73 square meters Performed By: #### M ORPH, CAION, BMP, FERR, DIFF, GFR, CBC, FES ####[place] [address] .Manual Diffon 04-25-2024 Basophil %, Manual 0.0 % Normal 0.0-2.5 [facility] ([place]) Comment on above: Performed By: #### M ORPH, CAION, BMP, FERR, DIFF, GFR, CBC, FES ####[place] [address] Basophil, Abs Manual 0.0 10 3/mcL Normal 0.0-0.3 [facility] ([place]) Comment on above: Performed By: #### M ORPH, CAION, BMP, FERR, DIFF, GFR, CBC, FES ####[place] [address] Eosinophil %, Manual 0.0 % Normal 0.0-6.0 [facility] ([place]) Comment on above: Performed By: #### M ORPH, CAION, BMP, FERR, DIFF, GFR, CBC, FES ####[place] [address] Eosinophil, Abs Manual 0.0 10 3/mcL Normal 0.0-0.7 [facility] ([place]) Comment on above: Performed By: #### M ORPH, CAION, BMP, FERR, DIFF, GFR, CBC, FES ####[place] [address] Lymphocyte %, Manual 12.0 % Low 20.0-40.0 [facility] ([place]) Comment on above: Performed By: #### M ORPH, CAION, BMP, FERR, DIFF, GFR, CBC, FES ####[place] [id number] Lymphocyte, Abs Manual 2.1 10 3/mcL Normal 0.9-4.3 [facility] ([place]) Comment on above: Performed By: #### M ORPH, CAION, BMP, FERR, DIFF, GFR, CBC, FES ####[place] [address] Monocyte %, Manual 3.0 % Normal 2.0-13.0 [facility] ([place]) Comment on above: Performed By: #### M ORPH, CAION, BMP, FERR, DIFF, GFR, CBC, FES ####[place] [address] Monocyte, Abs Manual 0.5 10 3/mcL Normal 0.1-1.4 [facility] ([place]) Comment on above: Performed By: #### M ORPH, CAION, BMP, FERR, DIFF, GFR, CBC, FES ####[place] [address] Neutrophil %, Manual 85.0 % High 50.0-75.0 [facility] ([place]) Comment on above: Performed By: #### M ORPH, CAION, BMP, FERR, DIFF, GFR, CBC, FES ####[place] [id number] Neutrophil, Abs Manual 14.7 10 3/mcL High 2.3-8.1 [facility] ([place]) Comment on above: Performed By: #### M ORPH, CAION, BMP, FERR, DIFF, GFR, CBC, FES ####[place] [address] Nucleated RBC 0.0 /100 WBC Normal [facility] ([place]) Comment on above: Performed By: #### M ORPH, CAION, BMP, FERR, DIFF, GFR, CBC, FES ####[place] [address] .Morphon 04-25-2024 Anisocytosis Ql (Bld) 1+ Normal [facility] ([place]) Comment on above: Performed By: #### M ORPH, CAION, BMP, FERR, DIFF, GFR, CBC, FES ####[address] [address] Hypochrom 1+ Normal [facility] ([place]) Comment on above: Performed By: #### M ORMERLENE, CAION, BMP, FERR, DIFF, GFR, CBC, FES ####[address] [address] Large Platelets Few Normal [facility] ([place]) Comment on above: Performed By: #### M ORPH, CAION, BMP, FERR, DIFF, GFR, CBC, FES ####[address] [address] Platelet Estimate Normal Normal [facility] ([place]) Comment on above: Performed By: #### M ORMERLENE, ROXANAON, BMP, FERR, DIFF, GFR, CBC, FES ####[address] [address] Polychrom 1+ Normal [facility] ([place]) Comment on above: Performed By: #### M ORMERLENE, CAION, BMP, FERR, DIFF, GFR, CBC, FES ####[address] [address] APTTon 04-25-2024 aPTT Coag (Bld) [Time] 35.9 s High 25.0-35.0 [facility] ([place]) Comment on above: Result Comment: For Heparin anticoagulation therapy, the recommendedtherapeutic range is: 54-77 seconds (APTT Correlationwith Anti-Xa therapeutic range of 0.3-0.7 units/ml).PLEASE REFERENCE THE PHARMACY PROTOCOL FOR DOSING. Heparin dose (APTT) Heparin IV Normal [facility] ([place]) BMPon 04-25-2024 BUN/Creatinine Ratio 23.3 ratio High 10.0-22.0 [facility] ([place]) Comment on above: Performed By: #### M ORPH, CAION, BMP, FERR, DIFF, GFR, CBC, FES ####[address] [address] Calcium [Mass/Vol] 7.9 mg/dL Low 8.7-10.4 [facility] ([place]) Comment on above: Performed By: #### M ORPH, CAION, BMP, FERR, DIFF, GFR, CBC, FES ####[address] [address] Chloride [Moles/Vol] 106 mmol/L Normal 98-110 [facility] ([place]) Comment on above: Performed By: #### M ORPH, CAION, BMP, FERR, DIFF, GFR, CBC, FES ####[address] [address] CO2 [Moles/Vol] 16 mmol/L Low 22-32 [facility] ([place]) Comment on above: Performed By: #### M ORPH, CAION, BMP, FERR, DIFF, GFR, CBC, FES ####[address] [address] Creatinine [Mass/Vol] 2.58 mg/dL High 0.60-1.40 [facility] ([place]) Comment on above: Performed By: #### M ORPH, CAION, BMP, FERR, DIFF, GFR, CBC, FES ####[place] [address] Electrolyte Balance 13.0 mEq/L Normal 4.0-15.0 [facility] ([place]) Comment on above: Performed By: #### M ORPH, CAION, BMP, FERR, DIFF, GFR, CBC, FES ####[address] [address] Glucose [Mass/Vol] 119 mg/dL High 70-110 [facility] ([place]) Comment on above: Performed By: #### M ORPH, CAION, BMP, FERR, DIFF, GFR, CBC, FES ####[address] [address] Potassium [Moles/Vol] 4.5 mmol/L Normal 3.5-5.0 [facility] ([place]) Comment on above: Performed By: #### M ORPH, CAION, BMP, FERR, DIFF, GFR, CBC, FES ####[address] [address] Sodium [Moles/Vol] 135 mmol/L Low 136-145 [facility] ([place]) Comment on above: Performed By: #### M ORPH, CAION, BMP, FERR, DIFF, GFR, CBC, FES ####[place] [address] Urea nitrogen [Mass/Vol] 60.0 mg/dL High 8.0-22.0 [facility] ([place]) Comment on above: Performed By: #### M ORPH, CAION, BMP, FERR, DIFF, GFR, CBC, FES ####[place] [address] CAIONon 04-25-2024 Calcium Ionized 1.06 mmol/L Low 1.12-1.32 [facility] ([place]) Comment on above: Result Comment: Spec imen volume is less than recommended minimum for accurate testing. interpret with caution. Performed By: #### M ORPH, CAION, BMP, FERR, DIFF, GFR, CBC, FES ####[place] [address] CBCon 04-25-2024 Erythrocyte distribution width (RBC) [Ratio] 16.6 % High 11.5-15.5 [facility] ([place]) Comment on above: Performed By: #### M ORPH, CAION, BMP, FERR, DIFF, GFR, CBC, FES ####[place] [address] Hematocrit (Bld) [Volume fraction] 23.9 % Low 40.0-52.0 [facility] ([place]) Comment on above: Performed By: #### M ORPH, CAION, BMP, FERR, DIFF, GFR, CBC, FES ####[place] [address] Hgb 7.9 G/dL Low 13.0-17.5 [facility] ([place]) Comment on above: Performed By: #### M ORPH, CAION, BMP, FERR, DIFF, GFR, CBC, FES ####[place] [address] MCH (RBC) [Entitic mass] 27.0 pg Normal 27.0-33.0 [facility] ([place]) Comment on above: Performed By: #### M ORPH, CAION, BMP, FERR, DIFF, GFR, CBC, FES ####[place] [address] MCHC 33.2 G/dL Normal 32.0-36.0 [facility] ([place]) Comment on above: Performed By: #### M ORPH, CAION, BMP, FERR, DIFF, GFR, CBC, FES ####[place] [address] MCV (RBC) [Entitic vol] 81.3 fL Normal 81.0-100.0 [facility] ([place]) Comment on above: Performed By: #### M ORPH, CAION, BMP, FERR, DIFF, GFR, CBC, FES ####[place] [address] Platelet 445 10 3/mcL Normal 150-450 [facility] ([place]) Comment on above: Performed By: #### M ORPH, CAION, BMP, FERR, DIFF, GFR, CBC, FES ####[place] [address] Platelet mean volume (Bld) [Entitic vol] 9.8 fL Normal 6.4-10.5 [facility] ([place]) Comment on above: Performed By: #### M ORPH, CAION, BMP, FERR, DIFF, GFR, CBC, FES ####[place] [address] RBC 2.94 10 6/mcL Low 4.50-6.00 [facility] ([place]) Comment on above: Performed By: #### M ORPH, CAION, BMP, FERR, DIFF, GFR, CBC, FES ####[place] [address] WBC 17.4 10 3/mcL High 4.5-10.8 [facility] ([place]) Comment on above: Performed By: #### M ORPH, CAION, BMP, FERR, DIFF, GFR, CBC, FES ####[place] [address] Partha 04-25-2024 Ferritin [Mass/Vol] 721.1 ng/mL High 26.0-388.0 [facility] ([place]) Comment on above: Performed By: #### M ORPH, CAION, BMP, FERR, DIFF, GFR, CBC, FES ####[place] [address] FESon 04-25-2024 Iron [Mass/Vol] 30 ug/dL Low 65-175 [facility] ([place]) Comment on above: Performed By: #### M ORPH, CAION, BMP, FERR, DIFF, GFR, CBC, FES ####[place] [address] Iron Sat 17 % Normal [facility] ([place]) Comment on above: Performed By: #### M ORPH, CAION, BMP, FERR, DIFF, GFR, CBC, FES ####[place] [address] TIBC 180 mcg/dL Low 250-500 [facility] ([place]) Comment on above: Performed By: #### M ORPH, CAION, BMP, FERR, DIFF, GFR, CBC, FES ####[place] [address] HHon 04-25-2024 Hematocrit (Bld) [Volume fraction] 28.6 % Low 40.0-52.0 [facility] ([place]) Comment on above: Performed By: #### H H ####[place] [address] Hgb 9.1 G/dL Low 13.0-17.5 [facility] ([place]) Comment on above: Performed By: #### H H ####[place] [address] LABORATORYOrdered By: Roosevelt Peterson on 04-25-2024 BE Venous -7.8 mmol/L Low -3.0 - 3.0 mmol/L AH Main Rapid Comm SS CO2 [Moles/Vol] 18.1 mmol/L Low 22.0 - 32.0 mmol/L AH Main Rapid Comm SS HCO3 (Bld) [Moles/Vol] 17.1 mmol/L Low 21.0 - 30.0 mmol/L AH Main Rapid Comm SS pCO2 Giuliano 32.3 mm[Hg] Low 41.0 - 51.0 mm Hg AH Main Rapid Comm SS pH (Bld) 7.341 [pH] Low 7.380 - 7.460 AH Main Rapid Comm SS pO2 Giuliano 77.1 mm[Hg] High 35.0 - 40.0 mm Hg AH Main Rapid Comm SS LABORATORYOrdered By: Nathalia Alexander on 04-25-2024 Calcium Ionized 1.06 mmol/L Low 1.12 - 1.32 mmol/L AH Main Rapid Comm SS Comment on above: Result Comment: Spec imen volume is less than recommended minimum for accurate testing. interpret with caution. LABORATORYOrdered By: SYSTEM SYSTEM on 04-25-2024 Ferritin [Mass/Vol] 721.1 ng/mL High 26.0 - 388.0 ng/mL ADM SS Hypochromia Ql (Bld) 1+ *NA* (04/25/24 3:34 AM) Invalid Interpretation Code AH Workflow SS Iron [Mass/Vol] 30 ug/dL Low 65 - 175 mcg/dL ADM SS Iron binding capacity [Mass/Vol] 180 mcg/dL Low 250 - 500 mcg/dL ADM SS Iron saturation [Mass fraction] 17 % Invalid Interpretation Code ADM SS Large Platelets Few *NA* (04/25/24 3:34 AM) Invalid Interpretation Code Workflow SS Polychromasia LM Ql (Bld) 1+ *NA* (04/25/24 3:34 AM) Invalid Interpretation Code Workflow SS VBGon 04-25-2024 BE Venous -7.8 mmol/L Low -3.0-3.0 [facility] ([place]) Comment on above: Performed By: #### V BG ####[address] [address] CO2 [Moles/Vol] 18.1 mmol/L Low 22.0-32.0 [facility] ([place]) Comment on above: Performed By: #### V BG ####[address] [address] HCO3 (Bld) [Moles/Vol] 17.1 mmol/L Low 21.0-30.0 [facility] ([place]) Comment on above: Performed By: #### V BG ####[place] [address] Oxygen saturation in Blood 94.0 % High 70.0-75.0 [facility] ([place]) Comment on above: Performed By: #### V BG ####[place] [address] pCO2 Giuliano 32.3 mmHg Low 41.0-51.0 [facility] ([place]) Comment on above: Performed By: #### V BG ####[place] [address] pH Venous 7.341 Low 7.380-7.46 0 [facility] ([place]) Comment on above: Performed By: #### V BG ####[place] [address] pO2 Giuliano 77.1 mmHg High 35.0-40.0 [facility] ([place]) Comment on above: Performed By: #### V BG ####[place] [address] .GFRon 04-24-2024 GFR 32 ml/min/1.73sqm Normal [facility] ([place]) Comment on above: Result Comment: GFR Population mean for , Non- Americans Ages 20-29 = 116 mL/min/1.73 sq.m. Ages 30-39 = 107 mL/min/1.73 sq.m. Ages 40-49 = 99 mL/min/1.73 sq.m. Ages 50-59 = 93 mL/min/1.73 sq.m. Ages 60-69 = 85 mL/min/1.73 sq.m. Ages 70+ = 75 mL/min/1.73 sq.m.Chronic Kidney Disease: Less than 60 mL/min/1.73 square metersEnd Stage Renal Disease: Less than 15 mL/min/1.73 square meters Performed By: #### C BC, GFR, DIFF, MORPH, BMP, PHOS, MG ####[place] [address] GFR Non- 26 ml/min/1.73sqm Normal [facility] ([place]) Comment on above: Result Comment: GFR Population mean for , Non- Americans Ages 20-29 = 116 mL/min/1.73 sq.m. Ages 30-39 = 107 mL/min/1.73 sq.m. Ages 40-49 = 99 mL/min/1.73 sq.m. Ages 50-59 = 93 mL/min/1.73 sq.m. Ages 60-69 = 85 mL/min/1.73 sq.m. Ages 70+ = 75 mL/min/1.73 sq.m.Chronic Kidney Disease: Less than 60 mL/min/1.73 square metersEnd Stage Renal Disease: Less than 15 mL/min/1.73 square meters Performed By: #### C BC, GFR, DIFF, MORPH, BMP, PHOS, MG ####[place] [address] .Manual Diffon 04-24-2024 Bands 1.0 % Normal 0.0-5.0 [facility] ([place]) Comment on above: Performed By: #### M ORPH, CBC, DIFF ####[place] [address] Basophil %, Manual 0.0 % Normal 0.0-2.5 [facility] ([place] Comment on above: Performed By: #### M ORPH, CBC, DIFF ####[place] [address] Basophil, Abs Manual 0.0 10 3/mcL Normal 0.0-0.3 [facility] ([place]) Comment on above: Performed By: #### M ORPH, CBC, DIFF ####[address] [address] Eosinophil %, Manual 2.0 % Normal 0.0-6.0 [facility] ([place]) Comment on above: Performed By: #### M ORPH, CBC, DIFF ####[place] [address] Eosinophil, Abs Manual 0.3 10 3/mcL Normal 0.0-0.7 [facility] ([place]) Comment on above: Performed By: #### M ORPH, CBC, DIFF ####[place] [address] Lymphocyte %, Manual 15.0 % Low 20.0-40.0 [facility] ([place]) Comment on above: Performed By: #### M ORPH, CBC, DIFF ####[address] [address] Lymphocyte, Abs Manual 2.7 10 3/mcL Normal 0.9-4.3 [facility] ([place]) Comment on above: Performed By: #### M ORPH, CBC, DIFF ####[address] [address] Monocyte %, Manual 10.0 % Normal 2.0-13.0 [facility] ([place] Comment on above: Performed By: #### M ORPH, CBC, DIFF ####[address] [address] Monocyte, Abs Manual 1.8 10 3/mcL High 0.1-1.4 [facility] ([place]) Comment on above: Performed By: #### M ORPH, CBC, DIFF ####[address] [address] Myelocyte 2.0 % Normal [facility] ([place]) Comment on above: Performed By: #### M ORPH, CBC, DIFF ####[address] [address] Neutrophil %, Manual 70.0 % Normal 50.0-75.0 [facility] ([place]) Comment on above: Performed By: #### M ORPH, CBC, DIFF ####[address] [address] Neutrophil, Abs Manual 12.7 10 3/mcL High 2.3-8.1 [facility] ([place]) Comment on above: Performed By: #### M ORPH, CBC, DIFF ####[address] [address] Nucleated RBC 0.0 /100 WBC Normal [facility] ([place]) Comment on above: Performed By: #### M ORPH, CBC, DIFF ####[address] [address] Bands 1.0 % Normal 0.0-5.0 [facility] ([place]) Comment on above: Performed By: #### D IFF, CBC, MORPH, PRO ####[address] [address] Basophil %, Manual 0.0 % Normal 0.0-2.5 [facility] ([place] Comment on above: Performed By: #### D IFF, CBC, MORPH, PRO ####[address] [address] Basophil, Abs Manual 0.0 10 3/mcL Normal 0.0-0.3 [facility] ([place] Comment on above: Performed By: #### D IFF, CBC, MORPH, PRO ####[address] [address] Eosinophil %, Manual 4.0 % Normal 0.0-6.0 [facility] ([place] Comment on above: Performed By: #### D IFF, CBC, MORPH, PRO ####[address] [address] Eosinophil, Abs Manual 0.9 10 3/mcL High 0.0-0.7 [facility] ([place]) Comment on above: Performed By: #### D IFF, CBC, MORPH, PRO ####[address] [address] Lymphocyte %, Manual 11.0 % Low 20.0-40.0 [facility] ([place] Comment on above: Performed By: #### D IFF, CBC, MORPH, PRO ####[address] [address] Lymphocyte, Abs Manual 2.5 10 3/mcL Normal 0.9-4.3 [facility] ([place]) Comment on above: Performed By: #### D IFF, CBC, MORPH, PRO ####[address] [address] Monocyte %, Manual 3.0 % Normal 2.0-13.0 [facility] ([place] Comment on above: Performed By: #### D IFF, CBC, MORPH, PRO ####[address] [address] Monocyte, Abs Manual 0.7 10 3/mcL Normal 0.1-1.4 [facility] ([place] Comment on above: Performed By: #### D IFF, CBC, MORPH, PRO ####[address] [address] Myelocyte 1.0 % Normal [facility] ([place]) Comment on above: Performed By: #### D IFF, CBC, MORPH, PRO ####[address] [address] Neutrophil %, Manual 80.0 % High 50.0-75.0 [facility] ([place]) Comment on above: Performed By: #### D IFF, CBC, MORPH, PRO ####[address] [address] Neutrophil, Abs Manual 18.3 10 3/mcL High 2.3-8.1 [facility] ([place]) Comment on above: Performed By: #### D IFF, CBC, MORPH, PRO ####[address] [address] Nucleated RBC 0.0 /100 WBC Normal [facility] ([place]) Comment on above: Performed By: #### D IFF, CBC, MORPH, PRO ####[address] [address] Bands 5.0 % Normal 0.0-5.0 [facility] ([place]) Comment on above: Performed By: #### C BC, GFR, DIFF, MORPH, BMP, PHOS, MG ####[address] [address] Basophil %, Manual 0.0 % Normal 0.0-2.5 [facility] ([place] Comment on above: Performed By: #### C BC, GFR, DIFF, MORPH, BMP, PHOS, MG ####[address] [address] Basophil, Abs Manual 0.0 10 3/mcL Normal 0.0-0.3 [facility] ([place] Comment on above: Performed By: #### C BC, GFR, DIFF, MORPH, BMP, PHOS, MG ####[address] [address] Eosinophil %, Manual 2.0 % Normal 0.0-6.0 [facility] ([place]) Comment on above: Performed By: #### C BC, GFR, DIFF, MORPH, BMP, PHOS, MG ####[address] [address] Eosinophil, Abs Manual 0.4 10 3/mcL Normal 0.0-0.7 [facility] ([place]) Comment on above: Performed By: #### C BC, GFR, DIFF, MORPH, BMP, PHOS, MG ####[address] [address] Lymphocyte %, Manual 12.0 % Low 20.0-40.0 [facility] ([place] Comment on above: Performed By: #### C BC, GFR, DIFF, MORPH, BMP, PHOS, MG ####[address] [address] Lymphocyte, Abs Manual 2.3 10 3/mcL Normal 0.9-4.3 [facility] ([place]) Comment on above: Performed By: #### C BC, GFR, DIFF, MORPH, BMP, PHOS, MG ####[address] [address] Metamyelocyte 3.0 % Normal [facility] ([place]) Comment on above: Performed By: #### C BC, GFR, DIFF, MORPH, BMP, PHOS, MG ####[address] [address] Monocyte %, Manual 7.0 % Normal 2.0-13.0 [facility] ([place] Comment on above: Performed By: #### C BC, GFR, DIFF, MORPH, BMP, PHOS, MG ####[address] [address] Monocyte, Abs Manual 1.4 10 3/mcL Normal 0.1-1.4 [facility] ([place] Comment on above: Performed By: #### C BC, GFR, DIFF, MORPH, BMP, PHOS, MG ####[address] [address] Neutrophil %, Manual 71.0 % Normal 50.0-75.0 [facility] ([place] Comment on above: Performed By: #### C BC, GFR, DIFF, MORPH, BMP, PHOS, MG ####[place] [address] Neutrophil, Abs Manual 14.8 10 3/mcL High 2.3-8.1 [facility] ([place]) Comment on above: Performed By: #### C BC, GFR, DIFF, MORPH, BMP, PHOS, MG ####[place] [address] Nucleated RBC 0.0 /100 WBC Normal [facility] ([place] Comment on above: Performed By: #### C BC, GFR, DIFF, MORPH, BMP, PHOS, MG ####[place] [address] .Morphon 04-24-2024 Anisocytosis Ql (Bld) 1+ Normal [facility] ([place] Comment on above: Performed By: #### M ORPH, CBC, DIFF ####[place] [address] Platelet Estimate Slt Increased Normal [facility] ([place] Comment on above: Performed By: #### M ORPH, CBC, DIFF ####[place] [address] Toxic Gran 1+ Normal [facility] ([place] Comment on above: Performed By: #### M ORPH, CBC, DIFF ####[place] [address] Anisocytosis Ql (Bld) 1+ Normal [facility] ([place] Comment on above: Performed By: #### D IFF, CBC, MORPH, PRO ####[place] [address] Large Platelets Few Normal [facility] ([place] Comment on above: Performed By: #### D IFF, CBC, MORPH, PRO ####[place] [address] Platelet Estimate Slt Increased Normal [facility] ([place] Comment on above: Performed By: #### D IFF, CBC, MORPH, PRO ####[address] [address] Polychrom 1+ Normal [facility] ([place]) Comment on above: Performed By: #### D IFF, CBC, MORPH, PRO ####[place] [address] Toxic Gran 1+ Normal [facility] ([place] Comment on above: Performed By: #### D IFF, CBC, MORPH, PRO ####[place] [address] RBC morphology finding Nom (Bld) Normal Normal [facility] ([place]) Comment on above: Performed By: #### C BC, GFR, DIFF, MORPH, BMP, PHOS, MG ####[place] [address] Platelet Estimate Normal Normal [facility] ([place]) Comment on above: Performed By: #### C BC, GFR, DIFF, MORPH, BMP, PHOS, MG ####[place] [address] APTTon 04-24-2024 aPTT Coag (Bld) [Time] 34.0 s Normal 25.0-35.0 [facility] ([place]) Comment on above: Result Comment: For Heparin anticoagulation therapy, the recommendedtherapeutic range is: 54-77 seconds (APTT Correlationwith Anti-Xa therapeutic range of 0.3-0.7 units/ml).PLEASE REFERENCE THE PHARMACY PROTOCOL FOR DOSING. Heparin dose (APTT) Heparin IV Normal [facility] ([place]) aPTT Coag (Bld) [Time] 36.5 s High 25.0-35.0 [facility] ([place]) Comment on above: Result Comment: Spec imen hemolyzed. Results may be affected.For Heparin anticoagulation therapy, the recommendedtherapeutic range is: 54-77 seconds (APTT Correlationwith Anti-Xa therapeutic range of 0.3-0.7 units/ml).PLEASE REFERENCE THE PHARMACY PROTOCOL FOR DOSING. Performed By: #### D IFF, CBC, MORPH, PRO ####[place] [address] Heparin dose (APTT) Heparin SubQ Normal [facility] ([place] Comment on above: Performed By: #### D IFF, CBC, MORPH, PRO ####[address] [address] BMPon 04-24-2024 BUN/Creatinine Ratio 26.3 ratio High 10.0-22.0 [facility] ([place]) Comment on above: Performed By: #### C BC, GFR, DIFF, MORPH, BMP, PHOS, MG ####[place] [address] Calcium [Mass/Vol] 7.8 mg/dL Low 8.7-10.4 [facility] ([place] Comment on above: Performed By: #### C BC, GFR, DIFF, MORPH, BMP, PHOS, MG ####[place] [address] Chloride [Moles/Vol] 104 mmol/L Normal 98-110 [facility] ([place]) Comment on above: Performed By: #### C BC, GFR, DIFF, MORPH, BMP, PHOS, MG ####[place] [address] CO2 [Moles/Vol] 20 mmol/L Low 22-32 [facility] ([place]) Comment on above: Performed By: #### C BC, GFR, DIFF, MORPH, BMP, PHOS, MG ####[place] [address] Creatinine [Mass/Vol] 2.62 mg/dL High 0.60-1.40 [facility] ([place]) Comment on above: Performed By: #### C BC, GFR, DIFF, MORPH, BMP, PHOS, MG ####[place] [address] Electrolyte Balance 11.0 mEq/L Normal 4.0-15.0 [facility] ([place]) Comment on above: Performed By: #### C BC, GFR, DIFF, MORPH, BMP, PHOS, MG ####[place] [address] Glucose [Mass/Vol] 116 mg/dL High 70-110 [facility] ([place]) Comment on above: Performed By: #### C BC, GFR, DIFF, MORPH, BMP, PHOS, MG ####[place] [address] Potassium [Moles/Vol] 4.7 mmol/L Normal 3.5-5.0 [facility] ([place]) Comment on above: Performed By: #### C BC, GFR, DIFF, MORPH, BMP, PHOS, MG ####[place] [address] Sodium [Moles/Vol] 135 mmol/L Low 136-145 [facility] ([place]) Comment on above: Performed By: #### C BC, GFR, DIFF, MORPH, BMP, PHOS, MG ####[place] [address] Urea nitrogen [Mass/Vol] 69.0 mg/dL High 8.0-22.0 [facility] ([place]) Comment on above: Performed By: #### C BC, GFR, DIFF, MORPH, BMP, PHOS, MG ####[place] [address] CBCon 04-24-2024 Erythrocyte distribution width (RBC) [Ratio] 16.8 % High 11.5-15.5 [facility] ([place]) Comment on above: Performed By: #### M ORPH, CBC, DIFF ####[place] [address] Hematocrit (Bld) [Volume fraction] 26.6 % Low 40.0-52.0 [facility] ([place]) Comment on above: Performed By: #### M ORPH, CBC, DIFF ####[place] [address] Hgb 8.4 G/dL Low 13.0-17.5 [facility] ([place]) Comment on above: Performed By: #### M ORPH, CBC, DIFF ####[place] [address] MCH (RBC) [Entitic mass] 25.6 pg Low 27.0-33.0 [facility] ([place]) Comment on above: Performed By: #### M ORPH, CBC, DIFF ####[address] [address] MCHC 31.5 G/dL Low 32.0-36.0 [facility] ([place]) Comment on above: Performed By: #### M ORPH, CBC, DIFF ####[address] [address] MCV (RBC) [Entitic vol] 81.5 fL Normal 81.0-100.0 [facility] ([place]) Comment on above: Performed By: #### M ORPH, CBC, DIFF ####[address] [address] Platelet 458 10 3/mcL High 150-450 [facility] ([place]) Comment on above: Performed By: #### M ORPH, CBC, DIFF ####[place] [address] Platelet mean volume (Bld) [Entitic vol] 10.0 fL Normal 6.4-10.5 [facility] ([place]) Comment on above: Performed By: #### M ORPH, CBC, DIFF ####[place] [address] RBC 3.26 10 6/mcL Low 4.50-6.00 [facility] ([place]) Comment on above: Performed By: #### M ORPH, CBC, DIFF ####[place] [address] WBC 17.9 10 3/mcL High 4.5-10.8 [facility] ([place]) Comment on above: Performed By: #### M ORPH, CBC, DIFF ####[address] [address] Erythrocyte distribution width (RBC) [Ratio] 16.7 % High 11.5-15.5 [facility] ([place] Comment on above: Performed By: #### D IFF, CBC, MORPH, PRO ####[address] [address] Hematocrit (Bld) [Volume fraction] 23.5 % Low 40.0-52.0 [facility] ([place]) Comment on above: Performed By: #### D IFF, CBC, MORPH, PRO ####[place] [address] Hgb 7.6 G/dL Low 13.0-17.5 [facility] ([place] Comment on above: Performed By: #### D IFF, CBC, MORPH, PRO ####[place] [address] MCH (RBC) [Entitic mass] 26.1 pg Low 27.0-33.0 [facility] ([place] Comment on above: Performed By: #### D IFF, CBC, MORPH, PRO ####[place] [address] MCHC 32.2 G/dL Normal 32.0-36.0 [facility] ([place] Comment on above: Performed By: #### D IFF, CBC, MORPH, PRO ####[place] [address] MCV (RBC) [Entitic vol] 81.1 fL Normal 81.0-100.0 [facility] ([place] Comment on above: Performed By: #### D IFF, CBC, MORPH, PRO ####[place] [address] Platelet 495 10 3/mcL High 150-450 [facility] ([place] Comment on above: Performed By: #### D IFF, CBC, MORPH, PRO ####[place] [address] Platelet mean volume (Bld) [Entitic vol] 9.7 fL Normal 6.4-10.5 [facility] ([place] Comment on above: Performed By: #### D IFF, CBC, MORPH, PRO ####[place] [address] RBC 2.90 10 6/mcL Low 4.50-6.00 [facility] ([place] Comment on above: Performed By: #### D IFF, CBC, MORPH, PRO ####[place] [address] WBC 22.6 10 3/mcL High 4.5-10.8 [facility] ([place] Comment on above: Performed By: #### D IFF, CBC, MORPH, PRO ####[place] [address] Erythrocyte distribution width (RBC) [Ratio] 16.3 % High 11.5-15.5 [facility] ([place] Comment on above: Performed By: #### C BC, GFR, DIFF, MORPH, BMP, PHOS, MG ####[place] [address] Hematocrit (Bld) [Volume fraction] 26.0 % Low 40.0-52.0 [facility] ([place] Comment on above: Performed By: #### C BC, GFR, DIFF, MORPH, BMP, PHOS, MG ####[address] [address] Hgb 8.4 G/dL Low 13.0-17.5 [facility] ([place] Comment on above: Performed By: #### C BC, GFR, DIFF, MORPH, BMP, PHOS, MG ####[address] [address] MCH (RBC) [Entitic mass] 26.3 pg Low 27.0-33.0 [facility] ([place] Comment on above: Performed By: #### C BC, GFR, DIFF, MORPH, BMP, PHOS, MG ####[place] [address] MCHC 32.5 G/dL Normal 32.0-36.0 [facility] ([place] Comment on above: Performed By: #### C BC, GFR, DIFF, MORPH, BMP, PHOS, MG ####[place] [address] MCV (RBC) [Entitic vol] 81.0 fL Normal 81.0-100.0 [facility] ([place] Comment on above: Performed By: #### C BC, GFR, DIFF, MORPH, BMP, PHOS, MG ####[place] [address] Platelet 433 10 3/mcL Normal 150-450 [facility] ([place]) Comment on above: Performed By: #### C BC, GFR, DIFF, MORPH, BMP, PHOS, MG ####[place] [id number] [place] [address] Platelet mean volume (Bld) [Entitic vol] 9.9 fL Normal 6.4-10.5 [facility] ([place] Comment on above: Performed By: #### C BC, GFR, DIFF, MORPH, BMP, PHOS, MG ####[address] [address] RBC 3.21 10 6/mcL Low 4.50-6.00 [facility] ([place]) Comment on above: Performed By: #### C BC, GFR, DIFF, MORPH, BMP, PHOS, MG ####[place] [id number] [place] [address] WBC 19.6 10 3/mcL High 4.5-10.8 [facility] ([place]) Comment on above: Performed By: #### C BC, GFR, DIFF, MORPH, BMP, PHOS, MG ####[address] [address] [address] ABDOMEN/PELVIS W/O CONTRA STon 04-24-2024 CT ABDOMEN/PELVIS W/O CONTRAST Normal [facility] ([place]) CT THORAX W/O CONTRASTon CT THORAX W/O CONTRAST Normal [facility]) LABORATORYOrdered By: SYSTEM SYSTEM on 04-24-2024 Myelocytes/100 WBC (Bld) 2.0 % Invalid Interpretation Code AH Workflow SS Toxic Gran 1+ *NA* (04/24/24 6:27 PM) Invalid Interpretation Code AH Workflow SS Large Platelets Few *NA* (04/24/24 8:53 AM) Invalid Interpretation Code AH Workflow SS Myelocytes/100 WBC (Bld) 1.0 % Invalid Interpretation Code AH Workflow SS Toxic Gran 1+ *NA* (04/24/24 8:53 AM) Invalid Interpretation Code AH Workflow SS Metamyelocytes/100 WBC (Bld) 3.0 % Invalid Interpretation Code AH Workflow SS RBC morphology finding Nom (Bld) Normal *NA* (04/24/24 3:23 AM) Invalid Interpretation Code AH Workflow SS LABORATORYOrdered By: Ha Pearson on 04-24-2024 PT Coag (PPP) [Time] 15.6 s High 9.0 - 1 4.4 seconds [facility] SS Comment on above: Result Comment: Spec imen hemolyzed. Results may be affected. Interpretive Data: E ffective 06/02/08, Protime results may be affected by some antibiotics (i.e. Ciprofloxacin, Azithromycin, Bactrim) which may potentiate the action of oral anticoagulants, with further increases in Protime/INR. PT International Ratio 1.4 ratio Invalid Interpretation Code [facility] Comment on above: Result Comment: Spec imen hemolyzed. Results may be affected. Interpretive Data: Alexis briones [employer] (CHEST, 1991, 102:312S-25S) recommended therapeutic range for oral anticoagulant therapy is: LOW RISK: Prophylaxis of venous thrombosis INR: 2.0-3.0 Treatment of pulmonary embolism 2.0-3.0 Prevention of systemic embolism 2.0-3.0 HIGH RISK: Mechanical prosthetic valves 2.5-3.5 MGon 04-24-2024 Magnesium [Mass/Vol] 2.1 mg/dL Normal 1.6-2.4 [facility] ([place]) Comment on above: Performed By: #### C BC, GFR, DIFF, MORPH, BMP, PHOS, MG ####[address] [address] PHOSon 04-24-2024 Phosphate [Mass/Vol] 5.0 mg/dL Normal 2.4-5.1 [facility] ([place]) Comment on above: Result Comment: No te - New Reference Range in effect 20 Performed By: #### C BC, GFR, DIFF, MORPH, BMP, PHOS, MG ####[place] [id number] [place] [address] PROon 04-24-2024 INR Coag (PPP) [Relative time] 1.4 {INR} Normal [facility] ([place]) Comment on above: Result Comment: Spec imen hemolyzed. Results may be affected.[employer] (CHEST, 1991, 102:[id number])recommended therapeutic range for oral anticoagulant therapy is:LOW RISK: Prophylaxis of venous thrombosis INR: 2.0-3.0 Treatment of pulmonary embolism 2.0-3.0 Prevention of systemic embolism 2.0-3.0HIGH RISK: Mechanical prosthetic valves 2.5-3.5 Performed By: #### D IFF, CBC, MORPH, PRO ####[address] [address] PT Coag (PPP) [Time] 15.6 s High 9.0-14.4 [facility] ([place]) Comment on above: Result Comment: Spec imen hemolyzed. Results may be affected.Effective 06/02/08, Protime results may be affected by some antibiotics (i.e. Ciprofloxacin, Azithromycin, Bactrim) which may potentiate the action of oral anticoagulants, with further increases in Protime/INR. Performed By: #### D IFF, CBC, MORPH, PRO ####[address] [address] .GFRon 04-23-2024 GFR Non- 26 ml/min/1.73sqm Normal [facility] ([place]) Comment on above: Result Comment: GFR Population mean for , Non- Americans Ages 20-29 = 116 mL/min/1.73 sq.m. Ages 30-39 = 107 mL/min/1.73 sq.m. Ages 40-49 = 99 mL/min/1.73 sq.m. Ages 50-59 = 93 mL/min/1.73 sq.m. Ages 60-69 = 85 mL/min/1.73 sq.m. Ages 70+ = 75 mL/min/1.73 sq.m.Chronic Kidney Disease: Less than 60 mL/min/1.73 square metersEnd Stage Renal Disease: Less than 15 mL/min/1.73 square meters Performed By: #### G FR, MORPH, MG, DIFF, CBC, CAION, PHOS, BMP ####[address] [address] GFR 32 ml/min/1.73sqm Normal [facility] ([place]) Comment on above: Result Comment: GFR Population mean for , Non- Americans Ages 20-29 = 116 mL/min/1.73 sq.m. Ages 30-39 = 107 mL/min/1.73 sq.m. Ages 40-49 = 99 mL/min/1.73 sq.m. Ages 50-59 = 93 mL/min/1.73 sq.m. Ages 60-69 = 85 mL/min/1.73 sq.m. Ages 70+ = 75 mL/min/1.73 sq.m.Chronic Kidney Disease: Less than 60 mL/min/1.73 square metersEnd Stage Renal Disease: Less than 15 mL/min/1.73 square meters Performed By: #### G FR, MORPH, MG, DIFF, CBC, CAION, PHOS, BMP ####[place] [address] .Manual Diffon 04-23-2024 Bands 9.0 % High 0.0-5.0 [facility] ([place]) Comment on above: Performed By: #### G FR, MORPH, MG, DIFF, CBC, CAION, PHOS, BMP ####[place] [address] Basophil %, Manual 0.0 % Normal 0.0-2.5 [facility] ([place]) Comment on above: Performed By: #### G FR, MORPH, MG, DIFF, CBC, CAION, PHOS, BMP ####[place] [address] Basophil, Abs Manual 0.0 10 3/mcL Normal 0.0-0.3 [facility] ([place]) Comment on above: Performed By: #### G FR, MORPH, MG, DIFF, CBC, CAION, PHOS, BMP ####[place] [address] Eosinophil %, Manual 0.0 % Normal 0.0-6.0 [facility] ([place]) Comment on above: Performed By: #### G FR, MORPH, MG, DIFF, CBC, CAION, PHOS, BMP ####[place] [id number] Eosinophil, Abs Manual 0.0 10 3/mcL Normal 0.0-0.7 [facility] ([place]) Comment on above: Performed By: #### G FR, MORPH, MG, DIFF, CBC, CAION, PHOS, BMP ####[address] [address] Lymphocyte %, Manual 14.0 % Low 20.0-40.0 [facility] ([place]) Comment on above: Performed By: #### G FR, MORPH, MG, DIFF, CBC, CAION, PHOS, BMP ####[address] [address] Lymphocyte, Abs Manual 3.2 10 3/mcL Normal 0.9-4.3 [facility] ([place]) Comment on above: Performed By: #### G FR, MORPH, MG, DIFF, CBC, CAION, PHOS, BMP ####[place] [address] Metamyelocyte 2.0 % Normal [facility] ([place]) Comment on above: Performed By: #### G FR, MORPH, MG, DIFF, CBC, CAION, PHOS, BMP ####[place] [address] Monocyte %, Manual 6.0 % Normal 2.0-13.0 [facility] ([place]) Comment on above: Performed By: #### G FR, MORPH, MG, DIFF, CBC, CAION, PHOS, BMP ####[address] [address] Monocyte, Abs Manual 1.3 10 3/mcL Normal 0.1-1.4 [facility] ([place]) Comment on above: Performed By: #### G FR, MORPH, MG, DIFF, CBC, CAION, PHOS, BMP ####[address] [address] Neutrophil %, Manual 69.0 % Normal 50.0-75.0 [facility] ([place]) Comment on above: Performed By: #### G FR, MORPH, MG, DIFF, CBC, CAION, PHOS, BMP ####[address] [address] Neutrophil, Abs Manual 17.5 10 3/mcL High 2.3-8.1 [facility] ([place]) Comment on above: Performed By: #### G FR, MORPH, MG, DIFF, CBC, CAION, PHOS, BMP ####[place] [address] Nucleated RBC 0.0 /100 WBC Normal [facility] ([place]) Comment on above: Performed By: #### G FR, MORPH, MG, DIFF, CBC, CAION, PHOS, BMP ####[place] [address] .Morphon 04-23-2024 Anisocytosis Ql (Bld) 1+ Normal [facility] ([place]) Comment on above: Performed By: #### G FR, MORPH, MG, DIFF, CBC, CAION, PHOS, BMP ####[place] [address] Ovalocytes 1+ Normal [facility] ([place]) Comment on above: Performed By: #### G FR, MORPH, MG, DIFF, CBC, CAION, PHOS, BMP ####[place] [address] Platelet Estimate Normal Normal [facility] ([place]) Comment on above: Performed By: #### G FR, MORPH, MG, DIFF, CBC, CAION, PHOS, BMP ####[place] [address] Polychrom 1+ Normal [facility] ([place]) Comment on above: Performed By: #### G FR, MORPH, MG, DIFF, CBC, CAION, PHOS, BMP ####[place] [address] Target Cell 1+ Normal [facility] ([place]) Comment on above: Performed By: #### G FR, MORPH, MG, DIFF, CBC, CAION, PHOS, BMP ####[place] [address] Toxic Gran 1+ Normal [facility] ([place]) Comment on above: Performed By: #### G FR, MORPH, MG, DIFF, CBC, CAION, PHOS, BMP ####[place] [address] BMPon 06-05-2024 BUN/Creatinine Ratio 26.1 ratio High 10.0-22.0 [facility] ([place]) Comment on above: Performed By: #### G FR, MORPH, MG, DIFF, CBC, CAION, PHOS, BMP ####[address] [address] Calcium [Mass/Vol] 7.7 mg/dL Low 8.7-10.4 [facility] ([place] Comment on above: Performed By: #### G FR, MORPH, MG, DIFF, CBC, CAION, PHOS, BMP ####[address] [address] Chloride [Moles/Vol] 103 mmol/L Normal 98-110 [facility] ([place]) Comment on above: Performed By: #### G FR, MORPH, MG, DIFF, CBC, CAION, PHOS, BMP ####[address] [address] CO2 [Moles/Vol] 20 mmol/L Low 22-32 [facility] ([place]) Comment on above: Performed By: #### G FR, MORPH, MG, DIFF, CBC, CAION, PHOS, BMP ####[address] [address] Creatinine [Mass/Vol] 2.61 mg/dL High 0.60-1.40 [facility] ([place]) Comment on above: Performed By: #### G FR, MORPH, MG, DIFF, CBC, CAION, PHOS, BMP ####[place] [address] Electrolyte Balance 10.0 mEq/L Normal 4.0-15.0 [facility] ([place]) Comment on above: Performed By: #### G FR, MORPH, MG, DIFF, CBC, CAION, PHOS, BMP ####[place] [address] Glucose [Mass/Vol] 190 mg/dL High 70-110 [facility] ([place] Comment on above: Performed By: #### G FR, MORPH, MG, DIFF, CBC, CAION, PHOS, BMP ####[place] [address] Potassium [Moles/Vol] 4.8 mmol/L Normal 3.5-5.0 [facility] ([place] Comment on above: Performed By: #### G FR, MORPH, MG, DIFF, CBC, CAION, PHOS, BMP ####[place] [address] Sodium [Moles/Vol] 133 mmol/L Low 136-145 [facility] ([place] Comment on above: Performed By: #### G FR, MORPH, MG, DIFF, CBC, CAION, PHOS, BMP ####[place] [address] Urea nitrogen [Mass/Vol] 68.0 mg/dL High 8.0-22.0 [facility] ([place]) Comment on above: Performed By: #### G FR, MORPH, MG, DIFF, CBC, CAION, PHOS, BMP ####[place] [address] CAIONon 04-23-2024 Calcium Ionized 1.04 mmol/L Low 1.12-1.32 [facility] ([place]) Comment on above: Performed By: #### G FR, MORPH, MG, DIFF, CBC, CAION, PHOS, BMP ####[place] [address] CBCon 04-23-2024 Erythrocyte distribution width (RBC) [Ratio] 16.6 % High 11.5-15.5 [facility] ([place]) Comment on above: Performed By: #### G FR, MORPH, MG, DIFF, CBC, CAION, PHOS, BMP ####[place] [address] Hematocrit (Bld) [Volume fraction] 25.3 % Low 40.0-52.0 [facility] ([place]) Comment on above: Performed By: #### G FR, MORPH, MG, DIFF, CBC, CAION, PHOS, BMP ####[place] [address] Hgb 8.3 G/dL Low 13.0-17.5 [facility] ([place]) Comment on above: Performed By: #### G FR, MORPH, MG, DIFF, CBC, CAION, PHOS, BMP ####[place] [address] MCH (RBC) [Entitic mass] 26.5 pg Low 27.0-33.0 [facility] ([place]) Comment on above: Performed By: #### G FR, MORPH, MG, DIFF, CBC, CAION, PHOS, BMP ####[place] [address] MCHC 32.7 G/dL Normal 32.0-36.0 [facility] ([place]) Comment on above: Performed By: #### G FR, MORPH, MG, DIFF, CBC, CAION, PHOS, BMP ####[place] [address] MCV (RBC) [Entitic vol] 80.8 fL Low 81.0-100.0 [facility] ([place] Comment on above: Performed By: #### G FR, MORPH, MG, DIFF, CBC, CAION, PHOS, BMP ####[place] [address] Platelet 410 10 3/mcL Normal 150-450 [facility] ([place]) Comment on above: Performed By: #### G FR, MORPH, MG, DIFF, CBC, CAION, PHOS, BMP ####[place] [address] Platelet mean volume (Bld) [Entitic vol] 9.3 fL Normal 6.4-10.5 [facility] ([place] Comment on above: Performed By: #### G FR, MORPH, MG, DIFF, CBC, CAION, PHOS, BMP ####[place] [address] RBC 3.13 10 6/mcL Low 4.50-6.00 [facility] ([place]) Comment on above: Performed By: #### G FR, MORPH, MG, DIFF, CBC, CAION, PHOS, BMP ####[place] [address] WBC 22.5 10 3/mcL High 4.5-10.8 [facility] ([place]) Comment on above: Performed By: #### G FR, MORPH, MG, DIFF, CBC, CAION, PHOS, BMP ####[place] [address] LABORATORYOrdered By: Yamel Carlos on 04-23-2024 Calcium Ionized 1.04 mmol/L Low 1.12 - 1.32 mmol/L AH Main Rapid Comm SS LABORATORYOrdered By: SYSTEM SYSTEM on 04-23-2024 Metamyelocytes/100 WBC (Bld) 2.0 % Invalid Interpretation Code Workflow SS Ovalocytes LM Ql (Bld) 1+ *NA* (04/23/24 4:10 AM) Invalid Interpretation Code Workflow SS Target Cell 1+ *NA* (04/23/24 4:10 AM) Invalid Interpretation Code Workflow SS MGon 04-23-2024 Magnesium [Mass/Vol] 2.2 mg/dL Normal 1.6-2.4 [facility] ([place]) Comment on above: Performed By: #### G FR, MORPH, MG, DIFF, CBC, CAION, PHOS, BMP ####[place] [address] PHOSon 04-23-2024 Phosphate [Mass/Vol] 4.6 mg/dL Normal 2.4-5.1 [facility] ([place]) Comment on above: Result Comment: No te - New Reference Range in effect 20 Performed By: #### G FR, MORPH, MG, DIFF, CBC, CAION, PHOS, BMP ####[place] [address] .Auto Diffon 04-22-2024 Basophil, Absolute 0.1 10 3/mcL Normal 0.0-0.3 [facility] ([place]) Comment on above: Performed By: #### B MP, CBC, ANEU, GFR, ADIFF ####[place] [address] Basophils/100 WBC (Bld) 0.3 % Normal 0.0-2.5 [facility] ([place]) Comment on above: Performed By: #### B MP, CBC, ANEU, GFR, ADIFF ####[address] [address] Eosinophil, Absolute 0.1 10 3/mcL Normal 0.0-0.7 [facility] ([place]) Comment on above: Performed By: #### B MP, CBC, ANEU, GFR, ADIFF ####[address] [address] Eosinophils/100 WBC (Bld) 0.5 % Normal 0.0-6.0 [facility] ([place]) Comment on above: Performed By: #### B MP, CBC, ANEU, GFR, ADIFF ####[address] [address] Lymphocyte, Absolute 2.0 10 3/mcL Normal 0.9-4.3 [facility] ([place]) Comment on above: Performed By: #### B MP, CBC, ANEU, GFR, ADIFF ####[address] [address] Lymphocytes/100 WBC (Bld) 9.8 % Low 20.0-40.0 [facility] ([place]) Comment on above: Performed By: #### B MP, CBC, ANEU, GFR, ADIFF ####[address] [address] Monocyte, Absolute 1.7 10 3/mcL High 0.1-1.4 [facility] ([place]) Comment on above: Performed By: #### B MP, CBC, ANEU, GFR, ADIFF ####[address] [address] Monocytes/100 WBC (Bld) 8.4 % Normal 2.0-13.0 [facility] ([place]) Comment on above: Performed By: #### B MP, CBC, ANEU, GFR, ADIFF ####[address] [address] Neutrophils/100 WBC (Bld) 81.0 % High 50.0-75.0 [facility] ([place]) Comment on above: Performed By: #### B MP, CBC, ANEU, GFR, ADIFF ####[place] [address] .GFRon 04-22-2024 GFR 32 ml/min/1.73sqm Normal [facility] ([place]) Comment on above: Result Comment: GFR Population mean for , Non- Americans Ages 20-29 = 116 mL/min/1.73 sq.m. Ages 30-39 = 107 mL/min/1.73 sq.m. Ages 40-49 = 99 mL/min/1.73 sq.m. Ages 50-59 = 93 mL/min/1.73 sq.m. Ages 60-69 = 85 mL/min/1.73 sq.m. Ages 70+ = 75 mL/min/1.73 sq.m.Chronic Kidney Disease: Less than 60 mL/min/1.73 square metersEnd Stage Renal Disease: Less than 15 mL/min/1.73 square meters Performed By: #### P MITCHELL REDDY, BMP, GFR, MG ####[place] [address] GFR Non- 27 ml/min/1.73sqm Normal [facility] ([place]) Comment on above: Result Comment: GFR Population mean for , Non- Americans Ages 20-29 = 116 mL/min/1.73 sq.m. Ages 30-39 = 107 mL/min/1.73 sq.m. Ages 40-49 = 99 mL/min/1.73 sq.m. Ages 50-59 = 93 mL/min/1.73 sq.m. Ages 60-69 = 85 mL/min/1.73 sq.m. Ages 70+ = 75 mL/min/1.73 sq.m.Chronic Kidney Disease: Less than 60 mL/min/1.73 square metersEnd Stage Renal Disease: Less than 15 mL/min/1.73 square meters Performed By: #### P HOSMITCHELL, BMP, GFR, MG ####[place] [address] GFR 32 ml/min/1.73sqm Normal [facility] ([place]) Comment on above: Result Comment: GFR Population mean for , Non- Americans Ages 20-29 = 116 mL/min/1.73 sq.m. Ages 30-39 = 107 mL/min/1.73 sq.m. Ages 40-49 = 99 mL/min/1.73 sq.m. Ages 50-59 = 93 mL/min/1.73 sq.m. Ages 60-69 = 85 mL/min/1.73 sq.m. Ages 70+ = 75 mL/min/1.73 sq.m.Chronic Kidney Disease: Less than 60 mL/min/1.73 square metersEnd Stage Renal Disease: Less than 15 mL/min/1.73 square meters Performed By: #### B MP, CBC, ANEU, GFR, ADIFF ####[place] [address] GFR Non- 26 ml/min/1.73sqm Normal [facility] ([place]) Comment on above: Result Comment: GFR Population mean for , Non- Americans Ages 20-29 = 116 mL/min/1.73 sq.m. Ages 30-39 = 107 mL/min/1.73 sq.m. Ages 40-49 = 99 mL/min/1.73 sq.m. Ages 50-59 = 93 mL/min/1.73 sq.m. Ages 60-69 = 85 mL/min/1.73 sq.m. Ages 70+ = 75 mL/min/1.73 sq.m.Chronic Kidney Disease: Less than 60 mL/min/1.73 square metersEnd Stage Renal Disease: Less than 15 mL/min/1.73 square meters Performed By: #### B MP, CBC, ANEU, GFR, ADIFF ####[place] [address] .NEUABSon 04-22-2024 Neutrophil, Absolute 16.9 10 3/mcL High 2.3-8.1 [facility] ([place]) Comment on above: Performed By: #### B MP, CBC, ANEU, GFR, ADIFF ####[place] [address] BMPon 04-22-2024 BUN/Creatinine Ratio 23.8 ratio High 10.0-22.0 [facility] ([place]) Comment on above: Performed By: #### P HOS, CAION, BMP, GFR, MG ####[address] [address] Calcium [Mass/Vol] 7.8 mg/dL Low 8.7-10.4 [facility] ([place] Comment on above: Performed By: #### P HOS, CAION, BMP, GFR, MG ####[address] [address] Chloride [Moles/Vol] 102 mmol/L Normal 98-110 [facility] ([place]) Comment on above: Performed By: #### P HOS, CAION, BMP, GFR, MG ####[address] [address] CO2 [Moles/Vol] 24 mmol/L Normal 22-32 [facility] ([place]) Comment on above: Performed By: #### P HOS, CAION, BMP, GFR, MG ####[address] [address] Creatinine [Mass/Vol] 2.60 mg/dL High 0.60-1.40 [facility] ([place]) Comment on above: Performed By: #### P HOS, CAION, BMP, GFR, MG ####[place] [address] Electrolyte Balance 6.0 mEq/L Normal 4.0-15.0 [facility] ([place]) Comment on above: Performed By: #### P HOS, CAION, BMP, GFR, MG ####[address] [address] Glucose [Mass/Vol] 249 mg/dL High 70-110 [facility] ([place] Comment on above: Performed By: #### P HOS, CAION, BMP, GFR, MG ####[address] [address] Potassium [Moles/Vol] 3.8 mmol/L Normal 3.5-5.0 [facility] ([place]) Comment on above: Performed By: #### P HOS, CAION, BMP, GFR, MG ####[address] [address] Sodium [Moles/Vol] 132 mmol/L Low 136-145 [facility] ([place]) Comment on above: Performed By: #### P HOS, CAION, BMP, GFR, MG ####[address] [address] Urea nitrogen [Mass/Vol] 62.0 mg/dL High 8.0-22.0 [facility] ([place]) Comment on above: Performed By: #### P HOS, CAION, BMP, GFR, MG ####[place] [address] BUN/Creatinine Ratio 22.4 ratio High 10.0-22.0 [facility] ([place]) Comment on above: Performed By: #### B MP, CBC, ANEU, GFR, ADIFF ####[address] [address] Calcium [Mass/Vol] 7.9 mg/dL Low 8.7-10.4 [facility] ([place]) Comment on above: Performed By: #### B MP, CBC, ANEU, GFR, ADIFF ####[place] [address] Chloride [Moles/Vol] 101 mmol/L Normal 98-110 [facility] ([place]) Comment on above: Performed By: #### B MP, CBC, ANEU, GFR, ADIFF ####[address] [address] CO2 [Moles/Vol] 21 mmol/L Low 22-32 [facility] ([place]) Comment on above: Performed By: #### B MP, CBC, ANEU, GFR, ADIFF ####[address] [address] Creatinine [Mass/Vol] 2.63 mg/dL High 0.60-1.40 [facility] ([place]) Comment on above: Performed By: #### B MP, CBC, ANEU, GFR, ADIFF ####[address] [address] Electrolyte Balance 10.0 mEq/L Normal 4.0-15.0 [facility] ([place]) Comment on above: Performed By: #### B MP, CBC, ANEU, GFR, ADIFF ####[place] [address] Glucose [Mass/Vol] 256 mg/dL High 70-110 [facility] ([place]) Comment on above: Performed By: #### B MP, CBC, ANEU, GFR, ADIFF ####[place] [address] Potassium [Moles/Vol] 4.0 mmol/L Normal 3.5-5.0 [facility] ([place]) Comment on above: Performed By: #### B MP, CBC, ANEU, GFR, ADIFF ####[place] [address] Sodium [Moles/Vol] 132 mmol/L Low 136-145 [facility] ([place]) Comment on above: Performed By: #### B MP, CBC, ANEU, GFR, ADIFF ####[place] [address] Urea nitrogen [Mass/Vol] 59.0 mg/dL High 8.0-22.0 [facility] ([place]) Comment on above: Performed By: #### B MP, CBC, ANEU, GFR, ADIFF ####[place] [address] CAIONon 04-22-2024 Calcium Ionized 1.04 mmol/L Low 1.12-1.32 [facility] ([place]) Comment on above: Performed By: #### P HOS, CAION, BMP, GFR, MG ####[place] [address] CBCon 04-22-2024 Erythrocyte distribution width (RBC) [Ratio] 16.5 % High 11.5-15.5 [facility] ([place]) Comment on above: Performed By: #### B MP, CBC, ANEU, GFR, ADIFF ####[place] [address] Hematocrit (Bld) [Volume fraction] 24.2 % Low 40.0-52.0 [facility] ([place]) Comment on above: Performed By: #### B MP, CBC, ANEU, GFR, ADIFF ####[place] [address] Hgb 8.0 G/dL Low 13.0-17.5 [facility] ([place]) Comment on above: Performed By: #### B MP, CBC, ANEU, GFR, ADIFF ####[place] [address] MCH (RBC) [Entitic mass] 26.4 pg Low 27.0-33.0 [facility] ([place]) Comment on above: Performed By: #### B MP, CBC, ANEU, GFR, ADIFF ####[place] [address] MCHC 33.2 G/dL Normal 32.0-36.0 [facility] ([place]) Comment on above: Performed By: #### B MP, CBC, ANEU, GFR, ADIFF ####[place] [address] MCV (RBC) [Entitic vol] 79.4 fL Low 81.0-100.0 [facility] ([place]) Comment on above: Performed By: #### B MP, CBC, ANEU, GFR, ADIFF ####[place] [address] Platelet 355 10 3/mcL Normal 150-450 [facility] ([place]) Comment on above: Performed By: #### B MP, CBC, ANEU, GFR, ADIFF ####[place] [address] Platelet mean volume (Bld) [Entitic vol] 8.9 fL Normal 6.4-10.5 [facility] ([place]) Comment on above: Performed By: #### B MP, CBC, ANEU, GFR, ADIFF ####[place] [address] RBC 3.05 10 6/mcL Low 4.50-6.00 [facility] ([place]) Comment on above: Performed By: #### B MP, CBC, ANEU, GFR, ADIFF ####[place] [address] WBC 20.8 10 3/mcL High 4.5-10.8 Pending sale to [facility]) Comment on above: Performed By: #### B MP, CBC, ANEU, GFR, ADIFF ####[place] [address] CRESPon 04-22-2024 CRESP Normal [facility] ([place]) HHon 04-22-2024 Hematocrit (Bld) [Volume fraction] 27.1 % Low 40.0-52.0 [facility] ([place]) Comment on above: Performed By: #### H H, TROPHS ####[place] [address] Hgb 8.9 G/dL Low 13.0-17.5 [facility] ([place]) Comment on above: Performed By: #### H H, TROPHS ####[place] [address] Rainer 04-22-2024 Potassium [Moles/Vol] 4.0 mmol/L Normal 3.5-5.0 [facility] ([place]) Comment on above: Performed By: #### P HOS, MG, K ####[place] [address] LABORATORYOrdered By: Samra Cortes on 04-22-2024 Calcium Ionized 1.04 mmol/L Low 1.12 - 1.32 mmol/L Main Rapid Comm SS MGon 04-22-2024 Magnesium [Mass/Vol] 1.9 mg/dL Normal 1.6-2.4 [facility] ([place]) Comment on above: Performed By: #### P HOS, CAION, BMP, GFR, MG ####[place] [address] Magnesium [Mass/Vol] 2.2 mg/dL Normal 1.6-2.4 [facility] ([place]) Comment on above: Performed By: #### P HOS, MG, K ####[place] [address] PHOSon 04-22-2024 Phosphate [Mass/Vol] 4.5 mg/dL Normal 2.4-5.1 [facility] ([place]) Comment on above: Result Comment: No te - New Reference Range in effect 20 Performed By: #### P HOS, CAION, BMP, GFR, MG ####[place] [address] Phosphate [Mass/Vol] 5.0 mg/dL Normal 2.4-5.1 [facility] ([place]) Comment on above: Result Comment: No te - New Reference Range in effect 20 Performed By: #### P HOS, MG, K ####[place] [address] RPRon 04-22-2024 Reagin Ab RPR Ql (S) Non-Reactive Normal Non-Carmel cti ve [facility] ([place]) Comment on above: Result Comment: The RPR test is a non-treponemal assay useful as an aidin the diagnosis of primary and secondary syphilis. Itconverts to positive generally within 2 weeks after theappearance of a lesion. This test is also useful formonitoring response to antibiotic therapy.A positive RPR screening test will be followed by theFTA ABS test.False positive RPR tests may occur in 1) patients withunderlying autoimmune disorders, 2) elderly patients,3) , and 4) other conditions with abnormal serumglobulins. Performed By: #### B MP, RPR, HEPAC, CBC, ANEU, HFP, CK, ADIFF, HIV, GFR ####[place] [address] TROPHSon 04-22-2024 High Sensitivity Troponin I 23 ng/L Normal 0-54 [facility] ([place]) Comment on above: Result Comment: High Sensitive Troponin I Reference Ranges:Female: 0-34 ng/LMale: 0-54 ng/LTesting performed on [employer] IM analyzer using direct chemiluminescent technology. Performed By: #### H H, VELMA ####[place] [address] XR CHEST 1 VIEWon 04-22-2024 XR CHEST 1 VIEW Normal [facility] ([place]) .Auto Diffon 04-21-2024 Basophil, Absolute 0.0 10 3/mcL Normal 0.0-0.3 [facility] ([place]) Comment on above: Performed By: #### B MP, RPR, HEPAC, CBC, ANEU, HFP, CK, ADIFF, HIV, GFR ####[address] [address] Basophils/100 WBC (Bld) 0.1 % Normal 0.0-2.5 [facility] ([place]) Comment on above: Performed By: #### B MP, RPR, HEPAC, CBC, ANEU, HFP, CK, ADIFF, HIV, GFR ####[address] [address] Eosinophil, Absolute 0.3 10 3/mcL Normal 0.0-0.7 [facility] ([place]) Comment on above: Performed By: #### B MP, RPR, HEPAC, CBC, ANEU, HFP, CK, ADIFF, HIV, GFR ####[address] [address] Eosinophils/100 WBC (Bld) 1.3 % Normal 0.0-6.0 [facility] ([place]) Comment on above: Performed By: #### B MP, RPR, HEPAC, CBC, ANEU, HFP, CK, ADIFF, HIV, GFR ####[address] [address] Lymphocyte, Absolute 1.4 10 3/mcL Normal 0.9-4.3 [facility] ([place]) Comment on above: Performed By: #### B MP, RPR, HEPAC, CBC, ANEU, HFP, CK, ADIFF, HIV, GFR ####[address] [address] Lymphocytes/100 WBC (Bld) 6.4 % Low 20.0-40.0 [facility] ([place]) Comment on above: Performed By: #### B MP, RPR, HEPAC, CBC, ANEU, HFP, CK, ADIFF, HIV, GFR ####[address] [address] Monocyte, Absolute 1.9 10 3/mcL High 0.1-1.4 [facility] ([place]) Comment on above: Performed By: #### B MP, RPR, HEPAC, CBC, ANEU, HFP, CK, ADIFF, HIV, GFR ####[place] [phone] [address] [place] [address] Monocytes/100 WBC (Bld) 8.8 % Normal 2.0-13.0 [facility] ([place]) Comment on above: Performed By: #### B MP, RPR, HEPAC, CBC, ANEU, HFP, CK, ADIFF, HIV, GFR ####[address] [address] Neutrophils/100 WBC (Bld) 83.4 % High 50.0-75.0 [facility] ([place]) Comment on above: Performed By: #### B MP, RPR, HEPAC, CBC, ANEU, HFP, CK, ADIFF, HIV, GFR ####[address] [address] .GFRon 04-21-2024 GFR 30 ml/min/1.73sqm Normal [facility] ([place]) Comment on above: Result Comment: GFR Population mean for , Non- Americans Ages 20-29 = 116 mL/min/1.73 sq.m. Ages 30-39 = 107 mL/min/1.73 sq.m. Ages 40-49 = 99 mL/min/1.73 sq.m. Ages 50-59 = 93 mL/min/1.73 sq.m. Ages 60-69 = 85 mL/min/1.73 sq.m. Ages 70+ = 75 mL/min/1.73 sq.m.Chronic Kidney Disease: Less than 60 mL/min/1.73 square metersEnd Stage Renal Disease: Less than 15 mL/min/1.73 square meters Performed By: #### B MP, RPR, HEPAC, CBC, ANEU, HFP, CK, ADIFF, HIV, GFR ####[address] [address] GFR Non- 25 ml/min/1.73sqm Normal [facility] ([place]) Comment on above: Result Comment: GFR Population mean for , Non- Americans Ages 20-29 = 116 mL/min/1.73 sq.m. Ages 30-39 = 107 mL/min/1.73 sq.m. Ages 40-49 = 99 mL/min/1.73 sq.m. Ages 50-59 = 93 mL/min/1.73 sq.m. Ages 60-69 = 85 mL/min/1.73 sq.m. Ages 70+ = 75 mL/min/1.73 sq.m.Chronic Kidney Disease: Less than 60 mL/min/1.73 square metersEnd Stage Renal Disease: Less than 15 mL/min/1.73 square meters Performed By: #### B MP, RPR, HEPAC, CBC, ANEU, HFP, CK, ADIFF, HIV, GFR ####[address] [address] .Manual Diffon 04-21-2024 Basophil %, Manual 0.0 % Normal 0.0-2.5 [facility] ([place]) Comment on above: Performed By: #### D IFF, MORPH, PRO, CBC ####[place] [address] Basophil, Abs Manual 0.0 10 3/mcL Normal 0.0-0.3 [facility] ([place]) Comment on above: Performed By: #### D IFF, MORPH, PRO, CBC ####[place] [address] Eosinophil %, Manual 0.0 % Normal 0.0-6.0 [facility] ([place]) Comment on above: Performed By: #### D IFF, MORPH, PRO, CBC ####[place] [address] Eosinophil, Abs Manual 0.0 10 3/mcL Normal 0.0-0.7 [facility] ([place]) Comment on above: Performed By: #### D IFF, MORPH, PRO, CBC ####[place] [address] Lymphocyte %, Manual 19.0 % Low 20.0-40.0 [facility] ([place]) Comment on above: Performed By: #### D IFF, MORPH, PRO, CBC ####[place] [address] Lymphocyte, Abs Manual 3.6 10 3/mcL Normal 0.9-4.3 [facility] ([place]) Comment on above: Performed By: #### D IFF, MORPH, PRO, CBC ####[place] [address] Monocyte %, Manual 4.0 % Normal 2.0-13.0 [facility] ([place]) Comment on above: Performed By: #### D IFF, MORPH, PRO, CBC ####[place] [address] Monocyte, Abs Manual 0.7 10 3/mcL Normal 0.1-1.4 [facility] ([place]) Comment on above: Performed By: #### D IFF, MORPH, PRO, CBC ####[place] [address] Neutrophil %, Manual 77.0 % High 50.0-75.0 [facility] ([place]) Comment on above: Performed By: #### D IFF, MORPH, PRO, CBC ####[place] [address] Neutrophil, Abs Manual 14.3 10 3/mcL High 2.3-8.1 [facility] ([place]) Comment on above: Performed By: #### D IFF, MORPH, PRO, CBC ####[place] [address] Nucleated RBC 0.0 /100 WBC Normal [facility] ([place]) Comment on above: Performed By: #### D IFF, MORPH, PRO, CBC ####[place] [address] .Morphon 04-21-2024 Anisocytosis Ql (Bld) 1+ Normal [facility] ([place]) Comment on above: Performed By: #### D IFF, MORPH, PRO, CBC ####[place] [address] Large Platelets Few Normal [facility] ([place]) Comment on above: Performed By: #### D IFF, MORPH, PRO, CBC ####[place] [address] Platelet Estimate Normal Normal [facility] ([place]) Comment on above: Performed By: #### D IFF, MORPH, PRO, CBC ####[address] [address] .NEUABSon 04-21-2024 Neutrophil, Absolute 18.3 10 3/mcL High 2.3-8.1 [facility] ([place]) Comment on above: Performed By: #### B MP, RPR, HEPAC, CBC, ANEU, HFP, CK, ADIFF, HIV, GFR ####[place] [address] ABO/Rh (Gel)on 04-21-2024 ABO/Rh Interp Positive Invalid Interpretation Code [facility] ([place]) Comment on above: Performed By: #### A SWAPNA PACK ####[place] [address] ABS (Gel)on 04-21-2024 ABSC Interp (Gel) Negative Normal [facility] ([place]) Comment on above: Performed By: #### A SWAPNA PACK ####[place] [address] APTTon 04-21-2024 aPTT Coag (Bld) [Time] 28.2 s Normal 25.0-35.0 [facility] ([place]) Comment on above: Result Comment: For Heparin anticoagulation therapy, the recommendedtherapeutic range is: 54-77 seconds (APTT Correlationwith Anti-Xa therapeutic range of 0.3-0.7 units/ml).PLEASE REFERENCE THE PHARMACY PROTOCOL FOR DOSING. Performed By: #### D IFF, MORPH, PRO, CBC ####[place] [address] Heparin dose (APTT) None Normal [facility] ([place]) Comment on above: Performed By: #### D IFF, MORPH, PRO, CBC ####[place] [address] BMPon 04-21-2024 BUN/Creatinine Ratio 23.0 ratio High 10.0-22.0 [facility] ([place]) Comment on above: Performed By: #### B MP, RPR, HEPAC, CBC, ANEU, HFP, CK, ADIFF, HIV, GFR ####[address] [address] Calcium [Mass/Vol] 8.0 mg/dL Low 8.7-10.4 [facility] ([place]) Comment on above: Performed By: #### B MP, RPR, HEPAC, CBC, ANEU, HFP, CK, ADIFF, HIV, GFR ####[address] [address] Chloride [Moles/Vol] 101 mmol/L Normal 98-110 [facility] ([place]) Comment on above: Performed By: #### B MP, RPR, HEPAC, CBC, ANEU, HFP, CK, ADIFF, HIV, GFR ####[address] [address] CO2 [Moles/Vol] 24 mmol/L Normal 22-32 [facility] ([place]) Comment on above: Performed By: #### B MP, RPR, HEPAC, CBC, ANEU, HFP, CK, ADIFF, HIV, GFR ####[address] [address] Creatinine [Mass/Vol] 2.78 mg/dL High 0.60-1.40 [facility] ([place]) Comment on above: Performed By: #### B MP, RPR, HEPAC, CBC, ANEU, HFP, CK, ADIFF, HIV, GFR ####[address] [address] Electrolyte Balance 11.0 mEq/L Normal 4.0-15.0 [facility] ([place]) Comment on above: Performed By: #### B MP, RPR, HEPAC, CBC, ANEU, HFP, CK, ADIFF, HIV, GFR ####[address] [address] Glucose [Mass/Vol] 179 mg/dL High 70-110 [facility] ([place]) Comment on above: Performed By: #### B MP, RPR, HEPAC, CBC, ANEU, HFP, CK, ADIFF, HIV, GFR ####[address] [address] Potassium [Moles/Vol] 3.7 mmol/L Normal 3.5-5.0 [facility] ([place]) Comment on above: Performed By: #### B MP, RPR, HEPAC, CBC, ANEU, HFP, CK, ADIFF, HIV, GFR ####[place] [address] Sodium [Moles/Vol] 136 mmol/L Normal 136-145 [facility] ([place]) Comment on above: Performed By: #### B MP, RPR, HEPAC, CBC, ANEU, HFP, CK, ADIFF, HIV, GFR ####[place] [address] Urea nitrogen [Mass/Vol] 64.0 mg/dL High 8.0-22.0 [facility] ([place]) Comment on above: Performed By: #### B MP, RPR, HEPAC, CBC, ANEU, HFP, CK, ADIFF, HIV, GFR ####[place] [address] CBCon 04-21-2024 Erythrocyte distribution width (RBC) [Ratio] 16.4 % High 11.5-15.5 [facility] ([place]) Comment on above: Performed By: #### D IFF, MORPH, PRO, CBC ####[place] [address] Hematocrit (Bld) [Volume fraction] 20.9 % Low 40.0-52.0 [facility] ([place]) Comment on above: Performed By: #### D IFF, MORPH, PRO, CBC ####[place] [address] Hgb 6.6 G/dL Critically abnormal 13.0-17.5 [facility] ([place]) Comment on above: Performed By: #### D IFF, MORPH, PRO, CBC ####[place] [address] MCH (RBC) [Entitic mass] 25.5 pg Low 27.0-33.0 [facility] ([place]) Comment on above: Performed By: #### D IFF, MORPH, PRO, CBC ####[address] [address] MCHC 31.4 G/dL Low 32.0-36.0 [facility] ([place]) Comment on above: Performed By: #### D IFF, MORPH, PRO, CBC ####[place] [address] MCV (RBC) [Entitic vol] 81.0 fL Normal 81.0-100.0 [facility] ([place]) Comment on above: Performed By: #### D IFF, MORPH, PRO, CBC ####[place] [address] Platelet 357 10 3/mcL Normal 150-450 [facility] ([place]) Comment on above: Performed By: #### D IFF, MORPH, PRO, CBC ####[place] [address] Platelet mean volume (Bld) [Entitic vol] 8.8 fL Normal 6.4-10.5 [facility] ([place]) Comment on above: Performed By: #### D IFF, MORPH, PRO, CBC ####[place] [address] RBC 2.58 10 6/mcL Low 4.50-6.00 [facility] ([place]) Comment on above: Performed By: #### D IFF, MORPH, PRO, CBC ####[place] [address] WBC 18.7 10 3/mcL High 4.5-10.8 [facility] ([place]) Comment on above: Performed By: #### D IFF, MORPH, PRO, CBC ####[place] [address] Erythrocyte distribution width (RBC) [Ratio] 16.0 % High 11.5-15.5 [facility] ([place]) Comment on above: Performed By: #### B MP, RPR, HEPAC, CBC, ANEU, HFP, CK, ADIFF, HIV, GFR ####[address] [address] Hematocrit (Bld) [Volume fraction] 24.8 % Low 40.0-52.0 [facility] ([place]) Comment on above: Performed By: #### B MP, RPR, HEPAC, CBC, ANEU, HFP, CK, ADIFF, HIV, GFR ####[place] [address] Hgb 8.1 G/dL Low 13.0-17.5 [facility] ([place]) Comment on above: Performed By: #### B MP, RPR, HEPAC, CBC, ANEU, HFP, CK, ADIFF, HIV, GFR ####[place] [address] MCH (RBC) [Entitic mass] 25.4 pg Low 27.0-33.0 [facility] ([place]) Comment on above: Performed By: #### B MP, RPR, HEPAC, CBC, ANEU, HFP, CK, ADIFF, HIV, GFR ####[place] [address] MCHC 32.6 G/dL Normal 32.0-36.0 [facility] ([place]) Comment on above: Performed By: #### B MP, RPR, HEPAC, CBC, ANEU, HFP, CK, ADIFF, HIV, GFR ####[place] [address] MCV (RBC) [Entitic vol] 78.1 fL Low 81.0-100.0 [facility] ([place]) Comment on above: Performed By: #### B MP, RPR, HEPAC, CBC, ANEU, HFP, CK, ADIFF, HIV, GFR ####[place] [address] Platelet 432 10 3/mcL Normal 150-450 [facility] ([place]) Comment on above: Performed By: #### B MP, RPR, HEPAC, CBC, ANEU, HFP, CK, ADIFF, HIV, GFR ####[place] [address] Platelet mean volume (Bld) [Entitic vol] 8.3 fL Normal 6.4-10.5 [facility] ([place]) Comment on above: Performed By: #### B MP, RPR, HEPAC, CBC, ANEU, HFP, CK, ADIFF, HIV, GFR ####[place] [address] RBC 3.18 10 6/mcL Low 4.50-6.00 [facility] ([place]) Comment on above: Performed By: #### B MP, RPR, HEPAC, CBC, ANEU, HFP, CK, ADIFF, HIV, GFR ####[place] [address] WBC 21.9 10 3/mcL High 4.5-10.8 [facility] ([place]) Comment on above: Performed By: #### B MP, RPR, HEPAC, CBC, ANEU, HFP, CK, ADIFF, HIV, GFR ####[place] [address] CBLon 04-21-2024 CBL Normal [facility] ([place]) CKon 04-21-2024 CK [Catalytic activity/Vol] 24 U/L Normal 7-185 [facility] ([place]) Comment on above: Performed By: #### B MP, RPR, HEPAC, CBC, ANEU, HFP, CK, ADIFF, HIV, GFR ####[place] [address] CTISSon 04-21-2024 CTISS [facility] ([place]) CWDPon 04-21-2024 CWDP Normal [facility] ([place]) HEPACon 04-21-2024 Hep A IgM Ab Non-Reactive Normal Non-Reacti ve [facility] ([place]) Comment on above: Performed By: #### B MP, RPR, HEPAC, CBC, ANEU, HFP, CK, ADIFF, HIV, GFR ####[place] [address] Hep A IgM Ab Int [facility] ([place]) Comment on above: Result Comment: No s erological evidence of a current Hepatitis A infection.See Interp Performed By: #### B MP, RPR, HEPAC, CBC, ANEU, HFP, CK, ADIFF, HIV, GFR ####[place] [address] Hep B Core IgM Ab Non-Reactive Normal Non-Reacti [facility] ([place]) Comment on above: Performed By: #### B MP, RPR, HEPAC, CBC, ANEU, HFP, CK, ADIFF, HIV, GFR ####[place] [address] Hep B Core IgM Ab Int Normal [facility] ([place]) Comment on above: Result Comment: Samp les with a value < 0.80 Index are considered nonreactive (negative) for IgM antibodies to hepatitis B core antigen.See Interp Performed By: #### B MP, RPR, HEPAC, CBC, ANEU, HFP, CK, ADIFF, HIV, GFR ####[place] [address] Hep B Surf Ag Non-Reactive [facility] ([place] Comment on above: Performed By: #### B MP, RPR, HEPAC, CBC, ANEU, HFP, CK, ADIFF, HIV, GFR ####[place] [address] Hep C Ab Non-Reactive [facility] ([place] Comment on above: Performed By: #### B MP, RPR, HEPAC, CBC, ANEU, HFP, CK, ADIFF, HIV, GFR ####[place] [address] Hep C Ab Int Normal [facility] ([place]) Comment on above: Result Comment: Nonr eactive: Samples with a value < 0.80 are considered nonreactive (negative) for antibodies to HCV.A negative test result does not exclude the possibility of exposure to or infection with HCV. HCV antibodies may be undetectable in some stages of the infection and in some clinical conditions.See Interp Performed By: #### B MP, RPR, HEPAC, CBC, ANEU, HFP, CK, ADIFF, HIV, GFR ####[place] [address] HFPon 04-21-2024 Bili Indirect 0.2 mg/dL Normal 0.1-10.0 [facility] ([place]) Comment on above: Performed By: #### B MP, RPR, HEPAC, CBC, ANEU, HFP, CK, ADIFF, HIV, GFR ####[place] [id number] Albumin Level 1.2 G/dL Low 3.2-4.8 [facility] ([place]) Comment on above: Performed By: #### B MP, RPR, HEPAC, CBC, ANEU, HFP, CK, ADIFF, HIV, GFR ####[address] [address] Albumin/Globulin [Mass ratio] 0.2 {ratio} Low 0.9-1.6 [facility] ([place]) Comment on above: Performed By: #### B MP, RPR, HEPAC, CBC, ANEU, HFP, CK, ADIFF, HIV, GFR ####[address] [address] ALP [Catalytic activity/Vol] 386 U/L High 38-126 [facility] ([place]) Comment on above: Performed By: #### B MP, RPR, HEPAC, CBC, ANEU, HFP, CK, ADIFF, HIV, GFR ####[address] [address] ALT [Catalytic activity/Vol] 21 U/L Normal 12-55 [facility] ([place]) Comment on above: Performed By: #### B MP, RPR, HEPAC, CBC, ANEU, HFP, CK, ADIFF, HIV, GFR ####[address] [address] AST [Catalytic activity/Vol] 23 U/L Normal 8-34 [facility] ([place]) Comment on above: Performed By: #### B MP, RPR, HEPAC, CBC, ANEU, HFP, CK, ADIFF, HIV, GFR ####[address] [address] Bili Direct 0.4 mg/dL Normal 0.0-0.4 [facility] ([place]) Comment on above: Result Comment: Use of this assay is not recommended for patients undergoing treatment with eltrombopag due to the potential for falsely elevated results. Performed By: #### B MP, RPR, HEPAC, CBC, ANEU, HFP, CK, ADIFF, HIV, GFR ####[place] [address] Bili Total 0.60 mg/dL Normal 0.20-1.20 [facility] ([place]) Comment on above: Result Comment: Use of this assay is not recommended for patients undergoing treatment with eltrombopag due to the potential for falsely elevated results. Performed By: #### B MP, RPR, HEPAC, CBC, ANEU, HFP, CK, ADIFF, HIV, GFR ####[place] [address] Globulin 5.2 G/dL High 1.5-3.8 [facility] ([place]) Comment on above: Performed By: #### B MP, RPR, HEPAC, CBC, ANEU, HFP, CK, ADIFF, HIV, GFR ####[place] [address] Total Protein 6.4 G/dL Normal 5.7-8.2 [facility] ([place]) Comment on above: Result Comment: No te - New Reference Range in effect 20 Performed By: #### B MP, RPR, HEPAC, CBC, ANEU, HFP, CK, ADIFF, HIV, GFR ####[place] [address] HHon 04-21-2024 Hematocrit (Bld) [Volume fraction] 23.5 % Low 40.0-52.0 [facility] ([place]) Comment on above: Performed By: #### H H ####[place] [address] Hgb 7.6 G/dL Low 13.0-17.5 [facility] ([place]) Comment on above: Performed By: #### H H ####[place] [address] HIVon 04-21-2024 HIV 1/2 Ab Non-Reactive Normal Non-Reacti ve [facility] ([place]) Comment on above: Result Comment: Spec imen is negative for anti-HIV-1 and anti-HIV-2. Performed By: #### B MP, RPR, HEPAC, CBC, ANEU, HFP, CK, ADIFF, HIV, GFR ####[place] [phone] [place] [address] Rainer 04-21-2024 Potassium [Moles/Vol] 4.1 mmol/L Normal 3.5-5.0 [facility] ([place]) Comment on above: Performed By: #### P HOS, K, TROPHS, MG ####[place] [address] LABORATORYOrdered By: SYSTEM SYSTEM on 04-21-2024 Troponin I.cardiac DL <= 0.01 ng/mL [Mass/Vol] 23 ng/L Normal 0 - 54 ng/L ADM SS Comment on above: Interpretive Data: High Sensitive Troponin I Reference Ranges: Female: 0-34 ng/L Male: 0-54 ng/L Testing performed on [employer] IM analyzer using direct chemiluminescent technology. Large Platelets Few *NA* (04/21/24 5:34 PM) Invalid Interpretation Code Workflow SS Troponin I.cardiac DL <= 0.01 ng/mL [Mass/Vol] 17 ng/L Normal 0 - 54 ng/L ADM SS Comment on above: Interpretive Data: High Sensitive Troponin I Reference Ranges: Female: 0-34 ng/L Male: 0-54 ng/L Testing performed on [employer] IM analyzer using direct chemiluminescent technology. Albumin/Globulin [Mass ratio] 0.2 {ratio} Low 0.9 - 1.6 ratio ADM SS ALP [Catalytic activity/Vol] 386 U/L High 38 - 126 U/L ADM SS ALT No additional P-5'-P [Catalytic activity/Vol] 21 U/L Normal 12 - 55 U/L ADM SS AST [Catalytic activity/Vol] 23 U/L Normal 8 - 34 U/L ADM SS Bili Indirect 0.2 mg/dL Normal 0.1 - 10.0 mg/dL Chemistry S Bilirubin [Mass/Vol] 0.60 mg/dL Normal 0.20 - 1.20 mg/dL ADM SS Comment on above: Interpretive Data: U se of this assay is not recommended for patients undergoing treatment with eltrombopag due to the potential for falsely elevated results. Bilirubin.conjugated [Mass/Vol] 0.4 mg/dL Normal 0.0 - 0.4 mg/dL ADM SS Comment on above: Interpretive Data: U se of this assay is not recommended for patients undergoing treatment with eltrombopag due to the potential for falsely elevated results. CK [Catalytic activity/Vol] 24 U/L Normal 7 - 185 U/L AH ADM SS Globulin 5.2 G/dL High 1.5 - 3.8 G/dL ADM SS Protein [Mass/Vol] 6.4 G/dL Normal 5.7 - 8.2 G/dL ADM SS Comment on above: Interpretive Data: * *Note - New Reference Range in effect 20 LABORATORYOrdered By: Cherelle Garsia on 04-21-2024 ABO and Rh group Nom (Bld) Blood group O Rh(D) positive Invalid Interpretation Code BB Auto SS Blood group antibody screen Ql Negative ABSC (04/21/24 6:33 PM) Normal BB Auto SS RBC Product Ready RBC Ready for Pickup (04/21/24 5:47 PM) Normal BB Manual SS LABORATORYOrdered By: Roosevelt Peterson on 04-21-2024 PT Coag (PPP) [Time] 16.4 s High 9.0 - 1 4.4 seconds [facility] SS Comment on above: Interpretive Data: E ffective 06/02/08, Protime results may be affected by some antibiotics (i.e. Ciprofloxacin, Azithromycin, Bactrim) which may potentiate the action of oral anticoagulants, with further increases in Protime/INR. PT International Ratio 1.4 ratio Invalid Interpretation Code [facility] SS Comment on above: Interpretive Data: Alexis briones [employer] (CHEST, 1992, 102:312S-25S) recommended therapeutic range for oral anticoagulant therapy is: LOW RISK: Prophylaxis of venous thrombosis INR: 2.0-3.0 Treatment of pulmonary embolism 2.0-3.0 Prevention of systemic embolism 2.0-3.0 HIGH RISK: Mechanical prosthetic valves 2.5-3.5 LABORATORYOrdered By: Nathalia Alexander on 04-21-2024 HAV IgM IA Ql Non-Reactive (04/21/24 3:07 AM) Normal Non-Reacti ve ADM SS HAV IgM IA Ql No serological evide nce of a current Hepatitis A infection. Invalid Interpretation Code Chemistry S HBV core IgM IA Ql Non-Reactive (04/21/24 3:07 AM) Normal Non-Reacti ve ADM SS HBV core IgM IA Ql Samples with a value < 0.80 Index are considered nonreactive (negative) for IgM antibodies to hepatitis B core antigen. Invalid Interpretation Code Chemistry S HBV surface Ag IA Ql Non-Reactive (04/21/24 3:07 AM) Normal Non-Reacti ve ADM SS HCV Ab IA Ql Non-Reactive (04/21/24 3:07 AM) Normal Non-Reacti ve [facility] SS HCV Ab IA Ql Nonreactive: Samples with a value < 0.80 are considered nonreactive (negative) for antibodies to HCV.A negative test result does not exclude the possibility of exposure to or infection with HCV. HCV antibodies may be undetectable in some stages of the infection and in some clinical conditions. Invalid Interpretation Code Chemistry S HIV 1+2 Ab IA Ql Negative Invalid Interpretation Code Chemistry S HIV 1/2 Ab Non-Reactive (04/21/24 3:07 AM) Normal Non-Reacti ve [facility] SS LABORATORYOrdered By: Nevaeh Bernal on 04-21-2024 Reagin Ab RPR Ql (S) Non-Reactive 27 (04/21/24 3:07 AM) Normal Non-Reacti ve [facility] Viro/Sero SS Comment on above: Interpretive Data: T he RPR test is a non-treponemal assay useful as an aid in the diagnosis of primary and secondary syphilis. It converts to positive generally within 2 weeks after the appearance of a lesion. This test is also useful for monitoring response to antibiotic therapy. A positive RPR screening test will be followed by the FTA ABS test. False positive RPR tests may occur in 1) patients with underlying autoimmune disorders, 2) elderly patients, 3) , and 4) other conditions with abnormal serum globulins. MGon 04-21-2024 Magnesium [Mass/Vol] 1.6 mg/dL Normal 1.6-2.4 [facility] ([place]) Comment on above: Performed By: #### P Eliana REDDY TROPHS MG ####[place] [address] PHOSon 04-21-2024 Phosphate [Mass/Vol] 5.1 mg/dL Normal 2.4-5.1 [facility] ([place]) Comment on above: Result Comment: No te - New Reference Range in effect 20 Performed By: #### P MAUREEN K, TROPHS, MG ####[place] [address] PROon 04-21-2024 INR Coag (PPP) [Relative time] 1.4 {INR} Normal [facility] ([place]) Comment on above: Result Comment: [employer] (CHEST, 1991, 102:312S-25S)recommended therapeutic range for oral anticoagulant therapy is:LOW RISK: Prophylaxis of venous thrombosis INR: 2.0-3.0 Treatment of pulmonary embolism 2.0-3.0 Prevention of systemic embolism 2.0-3.0HIGH RISK: Mechanical prosthetic valves 2.5-3.5 Performed By: #### D IFF, MORPH, PRO, CBC ####[place] [address] PT Coag (PPP) [Time] 16.4 s High 9.0-14.4 [facility] ([place]) Comment on above: Result Comment: Effe ctive 06/02/08, Protime results may be affected by some antibiotics (i.e. Ciprofloxacin, Azithromycin, Bactrim) which may potentiate the action of oral anticoagulants, with further increases in Protime/INR. Performed By: #### D IFF, MORPH, PRO, CBC ####[place] [address] RBC (Product)on 04-21-2024 RBC Product Ready RBC Ready for Pickup Normal [facility] ([place]) Comment on above: Performed By: #### R BCP ####[place] [address] TROPHSon 04-21-2024 High Sensitivity Troponin I 17 ng/L Normal 0-54 [facility] ([place]) Comment on above: Result Comment: High Sensitive Troponin I Reference Ranges:Female: 0-34 ng/LMale: 0-54 ng/LTesting performed on [employer] IM analyzer using direct chemiluminescent technology. Performed By: #### P HOS, K, TROPHS, MG ####[address] [address] .Auto Diffon 04-20-2024 Basophil, Absolute 0.1 10 3/mcL Normal 0.0-0.3 [facility] ([place]) Comment on above: Performed By: #### A DIFF, ANEU, CBC, VANCR, BMP, GFR ####[address] [address] Basophils/100 WBC (Bld) 0.3 % Normal 0.0-2.5 [facility] ([place]) Comment on above: Performed By: #### A DIFF, ANEU, CBC, VANCR, BMP, GFR ####[address] [address] Eosinophil, Absolute 0.5 10 3/mcL Normal 0.0-0.7 [facility] ([place]) Comment on above: Performed By: #### A DIFF, ANEU, CBC, VANCR, BMP, GFR ####[place] [address] Eosinophils/100 WBC (Bld) 2.5 % Normal 0.0-6.0 [facility] ([place]) Comment on above: Performed By: #### A DIFF, ANEU, CBC, VANCR, BMP, GFR ####[address] [address] Lymphocyte, Absolute 1.6 10 3/mcL Normal 0.9-4.3 [facility] ([place] Comment on above: Performed By: #### A DIFF, ANEU, CBC, VANCR, BMP, GFR ####[address] [address] Lymphocytes/100 WBC (Bld) 7.9 % Low 20.0-40.0 [facility] ([place]) Comment on above: Performed By: #### A DIFF, ANEU, CBC, VANCR, BMP, GFR ####[address] [address] Monocyte, Absolute 1.8 10 3/mcL High 0.1-1.4 [facility] ([place]) Comment on above: Performed By: #### A DIFF, ANEU, CBC, VANCR, BMP, GFR ####[address] [address] Monocytes/100 WBC (Bld) 8.9 % Normal 2.0-13.0 [facility] ([place] Comment on above: Performed By: #### A DIFF, ANEU, CBC, VANCR, BMP, GFR ####[address] [address] Neutrophils/100 WBC (Bld) 80.4 % High 50.0-75.0 [facility] ([place]) Comment on above: Performed By: #### A DIFF, ANEU, CBC, VANCR, BMP, GFR ####[address] [address] .GFRon 04-20-2024 GFR Non- 18 ml/min/1.73sqm Normal [facility] ([place]) Comment on above: Result Comment: GFR Population mean for , Non- Americans Ages 20-29 = 116 mL/min/1.73 sq.m. Ages 30-39 = 107 mL/min/1.73 sq.m. Ages 40-49 = 99 mL/min/1.73 sq.m. Ages 50-59 = 93 mL/min/1.73 sq.m. Ages 60-69 = 85 mL/min/1.73 sq.m. Ages 70+ = 75 mL/min/1.73 sq.m.Chronic Kidney Disease: Less than 60 mL/min/1.73 square metersEnd Stage Renal Disease: Less than 15 mL/min/1.73 square meters Performed By: #### A DIFF, ANEU, CBC, VANCR, BMP, GFR ####[address] [address] GFR 22 ml/min/1.73sqm Normal [facility] ([place]) Comment on above: Result Comment: GFR Population mean for , Non- Americans Ages 20-29 = 116 mL/min/1.73 sq.m. Ages 30-39 = 107 mL/min/1.73 sq.m. Ages 40-49 = 99 mL/min/1.73 sq.m. Ages 50-59 = 93 mL/min/1.73 sq.m. Ages 60-69 = 85 mL/min/1.73 sq.m. Ages 70+ = 75 mL/min/1.73 sq.m.Chronic Kidney Disease: Less than 60 mL/min/1.73 square metersEnd Stage Renal Disease: Less than 15 mL/min/1.73 square meters Performed By: #### A DIFF, ANEU, CBC, VANCR, BMP, GFR ####[place] [address] .NEUABSon 04-20-2024 Neutrophil, Absolute 16.1 10 3/mcL High 2.3-8.1 [facility] ([place] Comment on above: Performed By: #### A DIFF, ANEU, CBC, VANCR, BMP, GFR ####[place] [address] BGon 04-20-2024 Base excess Calc (Bld) [Moles/Vol] 2.9 mmol/L Normal [facility] ([place]) Comment on above: Performed By: #### B G ####[place] [address] CO2 [Moles/Vol] 27.8 mmol/L Normal 22.0-30.0 [facility] ([place]) Comment on above: Performed By: #### B G ####[place] [address] HCO3 (Bld) [Moles/Vol] 26.6 mmol/L Normal 21.0-29.0 [facility] ([place] Comment on above: Performed By: #### B G ####[place] [address] Oxygen (Bld) [Partial pressure] 60.8 mm[Hg] Low 74.0-108.0 [facility] ([place]) Comment on above: Performed By: #### B G ####[place] [address] Oxygen saturation in Blood 92.2 % Normal 92.0-96.0 [facility] ([place] Comment on above: Performed By: #### B G ####[place] [address] pCO2 37.4 mmHg Normal 32.0-46.0 [facility] ([place]) Comment on above: Performed By: #### B G ####[place] [id number] pH (Bld) 7.470 [pH] High 7.380-7.46 0 [facility] ([place]) Comment on above: Performed By: #### B G ####[address] [address] BMPon 04-20-2024 BUN/Creatinine Ratio 21.6 ratio Normal 10.0-22.0 [facility] ([place]) Comment on above: Performed By: #### A DIFF, ANEU, CBC, VANCR, BMP, GFR ####[place] [id number] Calcium [Mass/Vol] 8.2 mg/dL Low 8.7-10.4 [facility] ([place]) Comment on above: Performed By: #### A DIFF, ANEU, CBC, VANCR, BMP, GFR ####[place] [address] Chloride [Moles/Vol] 105 mmol/L Normal 98-110 [facility] ([place]) Comment on above: Performed By: #### A DIFF, ANEU, CBC, VANCR, BMP, GFR ####[place] [address] CO2 [Moles/Vol] 28 mmol/L Normal 22-32 [facility] ([place] Comment on above: Performed By: #### A DIFF, ANEU, CBC, VANCR, BMP, GFR ####[place] [address] Creatinine [Mass/Vol] 3.57 mg/dL High 0.60-1.40 [facility] ([place]) Comment on above: Performed By: #### A DIFF, ANEU, CBC, VANCR, BMP, GFR ####[place] [address] Electrolyte Balance 9.0 mEq/L Normal 4.0-15.0 [facility] ([place]) Comment on above: Performed By: #### A DIFF, ANEU, CBC, VANCR, BMP, GFR ####[place] [address] Glucose [Mass/Vol] 124 mg/dL High 70-110 [facility] ([place] Comment on above: Performed By: #### A DIFF, ANEU, CBC, VANCR, BMP, GFR ####[place] [id number] Potassium [Moles/Vol] 3.6 mmol/L Normal 3.5-5.0 [facility] ([place]) Comment on above: Performed By: #### A DIFF, ANEU, CBC, VANCR, BMP, GFR ####[place] [phone] Sodium [Moles/Vol] 142 mmol/L Normal 136-145 [facility] ([place] Comment on above: Performed By: #### A DIFF, ANEU, CBC, VANCR, BMP, GFR ####[place] [address] Urea nitrogen [Mass/Vol] 77.0 mg/dL High 8.0-22.0 [facility] ([place]) Comment on above: Performed By: #### A DIFF, ANEU, CBC, VANCR, BMP, GFR ####[place] [address] CBCon 04-20-2024 Erythrocyte distribution width (RBC) [Ratio] 16.3 % High 11.5-15.5 [facility] ([place]) Comment on above: Performed By: #### A DIFF, ANEU, CBC, VANCR, BMP, GFR ####[place] [address] Hematocrit (Bld) [Volume fraction] 23.5 % Low 40.0-52.0 [facility] ([place]) Comment on above: Performed By: #### A DIFF, ANEU, CBC, VANCR, BMP, GFR ####[place] [address] Hgb 7.7 G/dL Low 13.0-17.5 [facility] ([place] Comment on above: Performed By: #### A DIFF, ANEU, CBC, VANCR, BMP, GFR ####[place] [address] MCH (RBC) [Entitic mass] 25.6 pg Low 27.0-33.0 [facility] ([place]) Comment on above: Performed By: #### A DIFF, ANEU, CBC, VANCR, BMP, GFR ####[place] [address] MCHC 32.8 G/dL Normal 32.0-36.0 [facility] ([place]) Comment on above: Performed By: #### A DIFF, ANEU, CBC, VANCR, BMP, GFR ####[place] [address] MCV (RBC) [Entitic vol] 78.0 fL Low 81.0-100.0 [facility] ([place] Comment on above: Performed By: #### A DIFF, ANEU, CBC, VANCR, BMP, GFR ####[place] [address] Platelet 410 10 3/mcL Normal 150-450 [facility] ([place]) Comment on above: Performed By: #### A DIFF, ANEU, CBC, VANCR, BMP, GFR ####[place] [address] Platelet mean volume (Bld) [Entitic vol] 8.2 fL Normal 6.4-10.5 [facility] ([place]) Comment on above: Performed By: #### A DIFF, ANEU, CBC, VANCR, BMP, GFR ####[place] [address] RBC 3.01 10 6/mcL Low 4.50-6.00 [facility] ([place]) Comment on above: Performed By: #### A DIFF, ANEU, CBC, VANCR, BMP, GFR ####[place] [address] WBC 20.0 10 3/mcL High 4.5-10.8 [facility] ([place]) Comment on above: Performed By: #### A DIFF, ANEU, CBC, VANCR, BMP, GFR ####[place] [address] CURon 04-20-2024 CUR Normal [facility] ([place]) LABORATORYOrdered By: Aleksey Barajas on 04-20-2024 LDose Vancomycin: (random) See eMAR (04/20/24 4:45 AM) Normal Chemistry S Base Excess 2.9 mmol/L Invalid Interpretation Code AH Main Rapid Comm SS CO2 [Moles/Vol] 27.8 mmol/L Normal 22.0 - 30.0 mmol/L AH Main Rapid Comm SS HCO3 (Bld) [Moles/Vol] 26.6 mmol/L Normal 21.0 - 29.0 mmol/L AH Main Rapid Comm SS Oxygen (Bld) [Partial pressure] 60.8 mm[Hg] Low 74.0 - 108.0 mm Hg AH Main Rapid Comm SS pCO2 37.4 mm[Hg] Normal 32.0 - 46.0 mm Hg Main Rapid Comm SS pH (Bld) 7.470 [pH] High 7.380 - 7.460 Main Rapid Comm SS LABORATORYOrdered By: SYSTEM SYSTEM on 04-20-2024 Vancomycin [Mass/Vol] 15.8 mcg/mL Invalid Interpretation Code ADM SS VANCRon 04-20-2024 LDose Vancomycin: (random) See eMAR Normal [facility] ([place]) Comment on above: Performed By: #### A DIFF, ANEU, CBC, VANCR, BMP, GFR ####[place] [address] Vancomycin Lvl (random) 15.8 mcg/mL Normal [facility] ([place]) Comment on above: Performed By: #### A DIFF, ANEU, CBC, VANCR, BMP, GFR ####[place] [address] XR CHEST 1 VIEWon 04-20-2024 XR CHEST 1 VIEW Normal [facility] ([place]) .GFRon 04-19-2024 GFR 18 ml/min/1.73sqm Normal [facility] ([place]) Comment on above: Result Comment: GFR Population mean for , Non- Americans Ages 20-29 = 116 mL/min/1.73 sq.m. Ages 30-39 = 107 mL/min/1.73 sq.m. Ages 40-49 = 99 mL/min/1.73 sq.m. Ages 50-59 = 93 mL/min/1.73 sq.m. Ages 60-69 = 85 mL/min/1.73 sq.m. Ages 70+ = 75 mL/min/1.73 sq.m.Chronic Kidney Disease: Less than 60 mL/min/1.73 square metersEnd Stage Renal Disease: Less than 15 mL/min/1.73 square meters Performed By: #### C BC, DIFF, MORPH, BMP, GFR ####[address] [address] GFR Non- 15 ml/min/1.73sqm Normal [facility] ([place]) Comment on above: Result Comment: GFR Population mean for , Non- Americans Ages 20-29 = 116 mL/min/1.73 sq.m. Ages 30-39 = 107 mL/min/1.73 sq.m. Ages 40-49 = 99 mL/min/1.73 sq.m. Ages 50-59 = 93 mL/min/1.73 sq.m. Ages 60-69 = 85 mL/min/1.73 sq.m. Ages 70+ = 75 mL/min/1.73 sq.m.Chronic Kidney Disease: Less than 60 mL/min/1.73 square metersEnd Stage Renal Disease: Less than 15 mL/min/1.73 square meters Performed By: #### C BC, DIFF, MORPH, BMP, GFR ####[address] [address] .Manual Diffon 04-19-2024 Bands 2.0 % Normal 0.0-5.0 [facility] ([place] Comment on above: Performed By: #### C BC, DIFF, MORPH, BMP, GFR ####[address] [address] Basophil %, Manual 0.0 % Normal 0.0-2.5 [facility] ([place] Comment on above: Performed By: #### C BC, DIFF, MORPH, BMP, GFR ####[address] [address] Basophil, Abs Manual 0.0 10 3/mcL Normal 0.0-0.3 [facility] ([place]) Comment on above: Performed By: #### C BC, DIFF, MORPH, BMP, GFR ####[address] [address] Eosinophil %, Manual 1.0 % Normal 0.0-6.0 [facility] ([place]) Comment on above: Performed By: #### C BC, DIFF, MORPH, BMP, GFR ####[address] [address] Eosinophil, Abs Manual 0.4 10 3/mcL Normal 0.0-0.7 [facility] ([place]) Comment on above: Performed By: #### C BC, DIFF, MORPH, BMP, GFR ####[address] [address] Lymphocyte %, Manual 5.0 % Low 20.0-40.0 [facility] ([place] Comment on above: Performed By: #### C BC, DIFF, MORPH, BMP, GFR ####[address] [address] Lymphocyte, Abs Manual 1.7 10 3/mcL Normal 0.9-4.3 [facility] ([place]) Comment on above: Performed By: #### C BC, DIFF, MORPH, BMP, GFR ####[address] [address] Monocyte %, Manual 5.0 % Normal 2.0-13.0 [facility] ([place] Comment on above: Performed By: #### C BC, DIFF, MORPH, BMP, GFR ####[address] [address] Monocyte, Abs Manual 1.7 10 3/mcL High 0.1-1.4 [facility] ([place]) Comment on above: Performed By: #### C BC, DIFF, MORPH, BMP, GFR ####[address] [address] Neutrophil %, Manual 87.0 % High 50.0-75.0 [facility] ([place] Comment on above: Performed By: #### C BC, DIFF, MORPH, BMP, GFR ####[address] [address] Neutrophil, Abs Manual 30.7 10 3/mcL High 2.3-8.1 [facility] ([place]) Comment on above: Performed By: #### C BC, DIFF, MORPH, BMP, GFR ####[place] [address] Nucleated RBC 0.0 /100 WBC Normal [facility] ([place]) Comment on above: Performed By: #### C BC, DIFF, MORPH, BMP, GFR ####[place] [address] .Morphon 04-19-2024 Anisocytosis Ql (Bld) 1+ Normal [facility] ([place]) Comment on above: Performed By: #### C BC, DIFF, MORPH, BMP, GFR ####[place] [address] Large Platelets Few Normal [facility] ([place]) Comment on above: Performed By: #### C BC, DIFF, MORPH, BMP, GFR ####[place] [address] Microcytosis 1+ Normal [facility] ([place] Comment on above: Performed By: #### C BC, DIFF, MORPH, BMP, GFR ####[place] [address] Ovalocytes 1+ Normal [facility] ([place] Comment on above: Performed By: #### C BC, DIFF, MORPH, BMP, GFR ####[place] [address] Platelet Estimate Slt Increased Normal [facility] ([place]) Comment on above: Performed By: #### C BC, DIFF, MORPH, BMP, GFR ####[place] [address] BMPon 04-19-2024 BUN/Creatinine Ratio 18.9 ratio Normal 10.0-22.0 [facility] ([place]) Comment on above: Performed By: #### C BC, DIFF, MORPH, BMP, GFR ####[place] [address] Calcium [Mass/Vol] 8.0 mg/dL Low 8.7-10.4 [facility] ([place] Comment on above: Performed By: #### C BC, DIFF, MORPH, BMP, GFR ####[address] [address] Chloride [Moles/Vol] 102 mmol/L Normal 98-110 [facility] ([place]) Comment on above: Performed By: #### C BC, DIFF, MORPH, BMP, GFR ####[address] [address] CO2 [Moles/Vol] 28 mmol/L Normal 22-32 [facility] ([place]) Comment on above: Performed By: #### C BC, DIFF, MORPH, BMP, GFR ####[address] [address] Creatinine [Mass/Vol] 4.34 mg/dL High 0.60-1.40 [facility] ([place]) Comment on above: Performed By: #### C BC, DIFF, MORPH, BMP, GFR ####[address] [address] Electrolyte Balance 8.0 mEq/L Normal 4.0-15.0 [facility] ([place]) Comment on above: Performed By: #### C BC, DIFF, MORPH, BMP, GFR ####[address] [address] Glucose [Mass/Vol] 202 mg/dL High 70-110 [facility] ([place] Comment on above: Performed By: #### C BC, DIFF, MORPH, BMP, GFR ####[address] [address] Potassium [Moles/Vol] 4.1 mmol/L Normal 3.5-5.0 [facility] ([place]) Comment on above: Performed By: #### C BC, DIFF, MORPH, BMP, GFR ####[address] [address] Sodium [Moles/Vol] 138 mmol/L Normal 136-145 [facility] ([place] Comment on above: Performed By: #### C BC, DIFF, MORPH, BMP, GFR ####[address] [address] Urea nitrogen [Mass/Vol] 82.0 mg/dL High 8.0-22.0 [facility] ([place]) Comment on above: Performed By: #### C BC, DIFF, MORPH, BMP, GFR ####[place] [address] CBCon 04-19-2024 Erythrocyte distribution width (RBC) [Ratio] 16.2 % High 11.5-15.5 [facility] ([place] Comment on above: Performed By: #### C BC, DIFF, MORPH, BMP, GFR ####[place] [address] Hematocrit (Bld) [Volume fraction] 24.5 % Low 40.0-52.0 [facility] ([place] Comment on above: Performed By: #### C BC, DIFF, MORPH, BMP, GFR ####[place] [address] Hgb 7.7 G/dL Low 13.0-17.5 [facility] ([place] Comment on above: Performed By: #### C BC, DIFF, MORPH, BMP, GFR ####[place] [address] MCH (RBC) [Entitic mass] 24.8 pg Low 27.0-33.0 [facility] ([place] Comment on above: Performed By: #### C BC, DIFF, MORPH, BMP, GFR ####[place] [address] MCHC 31.6 G/dL Low 32.0-36.0 [facility] ([place] Comment on above: Performed By: #### C BC, DIFF, MORPH, BMP, GFR ####[place] [address] MCV (RBC) [Entitic vol] 78.6 fL Low 81.0-100.0 [facility] ([place] Comment on above: Performed By: #### C BC, DIFF, MORPH, BMP, GFR ####[place] [address] Platelet 461 10 3/mcL High 150-450 [facility] ([place] Comment on above: Performed By: #### C BC, DIFF, MORPH, BMP, GFR ####[place] [address] Platelet mean volume (Bld) [Entitic vol] 8.4 fL Normal 6.4-10.5 [facility] ([place]) Comment on above: Performed By: #### C BC, DIFF, MORPH, BMP, GFR ####[place] [address] RBC 3.12 10 6/mcL Low 4.50-6.00 [facility] ([place] Comment on above: Performed By: #### C BC, DIFF, MORPH, BMP, GFR ####[place] [address] WBC 34.6 10 3/mcL High 4.5-10.8 [facility] ([place]) Comment on above: Performed By: #### C BC, DIFF, MORPH, BMP, GFR ####[place] [address] CDIFPCRon 04-19-2024 Clostridium difficile PCR Negative Normal Negative [facility] ([place]) Comment on above: Result Comment: Note s 1990 Performed By: #### C DIFPCR ####[place] [address] Clostridium difficile PCR Int Normal [facility] ([place]) Comment on above: Result Comment: No t cdB gene DNA detected. Negative test results may occur from improper collection, handling or storage of specimen, technical error, or extremely low levels of target below the limit of detection of the assay.See Below Performed By: #### C DIFPCR ####[place] [address] LABORATORYOrdered By: Stefano Wilkerson on 04-19-2024 Clostridium difficile PCR Negative 1 (04/19/24 5:57 AM) Normal Negative Auto Viro/Sero SS Comment on above: Result Comment: Note s 1990 Clostridium difficile PCR Int No tcdB gene DNA detected. Negative test results may occur from improper collection, handling or storage of specimen, technical error, or extremely low levels of target below the limit of detection of the assay. Invalid Interpretation Code AH Auto Viro/Sero SS LABORATORYOrdered By: SYSTEM SYSTEM on 04-19-2024 Microcytes Ql (Bld) 1+ *NA* (04/19/24 4:24 AM) Invalid Interpretation Code Workflow SS Ovalocytes LM Ql (Bld) 1+ *NA* (04/19/24 4:24 AM) Invalid Interpretation Code Workflow SS Vancomycin [Mass/Vol] 17.3 mcg/mL Invalid Interpretation Code ADM SS LABORATORYOrdered By: Aleksey Barajas on 04-19-2024 LDose Vancomycin: (random) See eMAR (04/19/24 1:22 AM) Normal Chemistry S No Panel InformationOrdered By: Benja Floyd on 04-19-2024 Culture Respiratory with Gram Stain Light Yeast, not Maribell albicans Normal respiratory adela present. [facility] Comment on above: Requests for Mycopla sma, Legionella, Fungi, Mycobacteria, Chlamydia, and Viruses require ordering of those individual tests. GS 4+ Epithelial cells 4+ Polymorphonuclear cells 1+ Yeast [facility] Comment on above: Requests for Mycopla sma, Legionella, Fungi, Mycobacteria, Chlamydia, and Viruses require ordering of those individual tests. VANCRon 04-19-2024 LDose Vancomycin: (random) See eMAR Normal [facility] ([place]) Comment on above: Performed By: #### V ANCR ####[place] [address] Vancomycin Lvl (random) 17.3 mcg/mL Normal [facility] ([place]) Comment on above: Performed By: #### V ANCR ####[place] [address] .Auto Diffon 04-18-2024 Basophil, Absolute 0.0 10 3/mcL Normal 0.0-0.3 [facility] ([place]) Comment on above: Performed By: #### C MP, ANEU, CBC, ADIFF, MORPH, DIFF, GFR ####[address] [address] Basophils/100 WBC (Bld) 0.1 % Normal 0.0-2.5 [facility] ([place]) Comment on above: Performed By: #### C MP, ANEU, CBC, ADIFF, MORPH, DIFF, GFR ####[address] [address] Eosinophil, Absolute 0.1 10 3/mcL Normal 0.0-0.7 [facility] ([place]) Comment on above: Performed By: #### C MP, ANEU, CBC, ADIFF, MORPH, DIFF, GFR ####[address] [address] Eosinophils/100 WBC (Bld) 0.2 % Normal 0.0-6.0 [facility] ([place]) Comment on above: Performed By: #### C MP, ANEU, CBC, ADIFF, MORPH, DIFF, GFR ####[address] [address] Lymphocyte, Absolute 1.7 10 3/mcL Normal 0.9-4.3 [facility] ([place]) Comment on above: Performed By: #### C MP, ANEU, CBC, ADIFF, MORPH, DIFF, GFR ####[address] [address] Lymphocytes/100 WBC (Bld) 4.9 % Low 20.0-40.0 [facility] ([place]) Comment on above: Performed By: #### C MP, ANEU, CBC, ADIFF, MORPH, DIFF, GFR ####[address] [address] Monocyte, Absolute 2.6 10 3/mcL High 0.1-1.4 [facility] [facility] [place] Comment on above: Performed By: #### C MP, ANEU, CBC, ADIFF, MORPH, DIFF, GFR ####[address] [address] Monocytes/100 WBC (Bld) 7.5 % Normal 2.0-13.0 [facility] ([place]) Comment on above: Performed By: #### C MP, ANEU, CBC, ADIFF, MORPH, DIFF, GFR ####[address] [address] Neutrophils/100 WBC (Bld) 87.3 % High 50.0-75.0 [facility] ([place]) Comment on above: Performed By: #### C MP, ANEU, CBC, ADIFF, MORPH, DIFF, GFR ####[address] [address] .GFRon 04-18-2024 GFR 18 ml/min/1.73sqm Normal [facility] ([place]) Comment on above: Result Comment: GFR Population mean for , Non- Americans Ages 20-29 = 116 mL/min/1.73 sq.m. Ages 30-39 = 107 mL/min/1.73 sq.m. Ages 40-49 = 99 mL/min/1.73 sq.m. Ages 50-59 = 93 mL/min/1.73 sq.m. Ages 60-69 = 85 mL/min/1.73 sq.m. Ages 70+ = 75 mL/min/1.73 sq.m.Chronic Kidney Disease: Less than 60 mL/min/1.73 square metersEnd Stage Renal Disease: Less than 15 mL/min/1.73 square meters Performed By: #### B MP, MORPH, DIFF, GFR, CBC ####[place] [address] GFR Non- 15 ml/min/1.73sqm Normal [facility] ([place]) Comment on above: Result Comment: GFR Population mean for , Non- Americans Ages 20-29 = 116 mL/min/1.73 sq.m. Ages 30-39 = 107 mL/min/1.73 sq.m. Ages 40-49 = 99 mL/min/1.73 sq.m. Ages 50-59 = 93 mL/min/1.73 sq.m. Ages 60-69 = 85 mL/min/1.73 sq.m. Ages 70+ = 75 mL/min/1.73 sq.m.Chronic Kidney Disease: Less than 60 mL/min/1.73 square metersEnd Stage Renal Disease: Less than 15 mL/min/1.73 square meters Performed By: #### B MP, MORPH, DIFF, GFR, CBC ####[place] [address] GFR Non- 15 ml/min/1.73sqm Normal [facility] ([place]) Comment on above: Result Comment: GFR Population mean for , Non- Americans Ages 20-29 = 116 mL/min/1.73 sq.m. Ages 30-39 = 107 mL/min/1.73 sq.m. Ages 40-49 = 99 mL/min/1.73 sq.m. Ages 50-59 = 93 mL/min/1.73 sq.m. Ages 60-69 = 85 mL/min/1.73 sq.m. Ages 70+ = 75 mL/min/1.73 sq.m.Chronic Kidney Disease: Less than 60 mL/min/1.73 square metersEnd Stage Renal Disease: Less than 15 mL/min/1.73 square meters Performed By: #### C MP, ANEU, CBC, ADIFF, MORPH, DIFF, GFR ####[address] [address] GFR 18 ml/min/1.73sqm Normal [facility] ([place]) Comment on above: Result Comment: GFR Population mean for , Non- Americans Ages 20-29 = 116 mL/min/1.73 sq.m. Ages 30-39 = 107 mL/min/1.73 sq.m. Ages 40-49 = 99 mL/min/1.73 sq.m. Ages 50-59 = 93 mL/min/1.73 sq.m. Ages 60-69 = 85 mL/min/1.73 sq.m. Ages 70+ = 75 mL/min/1.73 sq.m.Chronic Kidney Disease: Less than 60 mL/min/1.73 square metersEnd Stage Renal Disease: Less than 15 mL/min/1.73 square meters Performed By: #### C MP, ANEU, CBC, ADIFF, MORPH, DIFF, GFR ####[address] [address] .Manual Diffon 04-18-2024 Bands 2.0 % Normal 0.0-5.0 [facility] ([place]) Comment on above: Performed By: #### B MP, MORPH, DIFF, GFR, CBC ####[address] [address] Basophil %, Manual 0.0 % Normal 0.0-2.5 [facility] ([place]) Comment on above: Performed By: #### B MP, MORPH, DIFF, GFR, CBC ####[address] [address] Basophil, Abs Manual 0.0 10 3/mcL Normal 0.0-0.3 [facility] ([place]) Comment on above: Performed By: #### B MP, MORPH, DIFF, GFR, CBC ####[address] [address] Eosinophil %, Manual 0.0 % Normal 0.0-6.0 [facility] ([place]) Comment on above: Performed By: #### B MP, MORPH, DIFF, GFR, CBC ####[address] [address] Eosinophil, Abs Manual 0.0 10 3/mcL Normal 0.0-0.7 [facility] ([place]) Comment on above: Performed By: #### B MP, MORPH, DIFF, GFR, CBC ####[address] [address] Lymphocyte %, Manual 7.0 % Low 20.0-40.0 [facility] ([place]) Comment on above: Performed By: #### B MP, MORPH, DIFF, GFR, CBC ####[address] [address] Lymphocyte, Abs Manual 2.0 10 3/mcL Normal 0.9-4.3 [facility] ([place]) Comment on above: Performed By: #### B MP, MORPH, DIFF, GFR, CBC ####[address] [address] Monocyte %, Manual 6.0 % Normal 2.0-13.0 [facility] ([place]) Comment on above: Performed By: #### B MP, MORPH, DIFF, GFR, CBC ####[address] [address] Monocyte, Abs Manual 1.8 10 3/mcL High 0.1-1.4 [facility] ([place]) Comment on above: Performed By: #### B MP, MORPH, DIFF, GFR, CBC ####[address] [address] Neutrophil %, Manual 85.0 % High 50.0-75.0 [facility] ([place]) Comment on above: Performed By: #### B MP, MORPH, DIFF, GFR, CBC ####[address] [address] Neutrophil, Abs Manual 25.3 10 3/mcL High 2.3-8.1 [facility] ([place]) Comment on above: Performed By: #### B MP, MORPH, DIFF, GFR, CBC ####[place] [address] Nucleated RBC 0.0 /100 WBC Normal [facility] ([place] Comment on above: Performed By: #### B MP, MORPH, DIFF, GFR, CBC ####[place] [address] Basophil %, Manual 0.0 % Normal 0.0-2.5 [facility] ([place] Comment on above: Performed By: #### C MP, ANEU, CBC, ADIFF, MORPH, DIFF, GFR ####[place] [address] Basophil, Abs Manual 0.0 10 3/mcL Normal 0.0-0.3 [facility] ([place] Comment on above: Performed By: #### C MP, ANEU, CBC, ADIFF, MORPH, DIFF, GFR ####[address] [address] Eosinophil %, Manual 0.0 % Normal 0.0-6.0 [facility] ([place]) Comment on above: Performed By: #### C MP, ANEU, CBC, ADIFF, MORPH, DIFF, GFR ####[address] [address] Eosinophil, Abs Manual 0.0 10 3/mcL Normal 0.0-0.7 [facility] ([place]) Comment on above: Performed By: #### C MP, ANEU, CBC, ADIFF, MORPH, DIFF, GFR ####[address] [address] Lymphocyte %, Manual 9.0 % Low 20.0-40.0 [facility] ([place]) Comment on above: Performed By: #### C MP, ANEU, CBC, ADIFF, MORPH, DIFF, GFR ####[address] [address] Lymphocyte, Abs Manual 3.2 10 3/mcL Normal 0.9-4.3 [facility] ([place]) Comment on above: Performed By: #### C MP, ANEU, CBC, ADIFF, MORPH, DIFF, GFR ####[place] [address] Monocyte %, Manual 4.0 % Normal 2.0-13.0 [facility] ([place] Comment on above: Performed By: #### C MP, ANEU, CBC, ADIFF, MORPH, DIFF, GFR ####[place] [address] Monocyte, Abs Manual 1.4 10 3/mcL Normal 0.1-1.4 [facility] ([place]) Comment on above: Performed By: #### C MP, ANEU, CBC, ADIFF, MORPH, DIFF, GFR ####[place] [address] Myelocyte 1.0 % Normal [facility] ([place]) Comment on above: Performed By: #### C MP, ANEU, CBC, ADIFF, MORPH, DIFF, GFR ####[address] [address] Neutrophil %, Manual 86.0 % High 50.0-75.0 [facility] ([place]) Comment on above: Performed By: #### C MP, ANEU, CBC, ADIFF, MORPH, DIFF, GFR ####[place] [address] Nucleated RBC 0.0 /100 WBC Normal [facility] ([place] Comment on above: Performed By: #### C MP, ANEU, CBC, ADIFF, MORPH, DIFF, GFR ####[place] [address] Neutrophil, Abs Manual 30.1 10 3/mcL High 2.3-8.1 [facility] ([place]) Comment on above: Performed By: #### C MP, ANEU, CBC, ADIFF, MORPH, DIFF, GFR ####[place] [address] .Morphon 04-18-2024 Platelet Estimate Normal Normal [facility] ([place]) Comment on above: Performed By: #### B MP, MORPH, DIFF, GFR, CBC ####[place] [address] Anisocytosis Ql (Bld) 1+ Normal [facility] ([place]) Comment on above: Performed By: #### B MP, MORPH, DIFF, GFR, CBC ####[place] [address] Microcytosis 1+ Normal [facility] ([place]) Comment on above: Performed By: #### B MP, MORPH, DIFF, GFR, CBC ####[place] [address] Anisocytosis Ql (Bld) 1+ Normal [facility] ([place]) Comment on above: Performed By: #### C MP, ANEU, CBC, ADIFF, MORPH, DIFF, GFR ####[place] [address] Hypochrom 1+ Normal [facility] ([place]) Comment on above: Performed By: #### C MP, ANEU, CBC, ADIFF, MORPH, DIFF, GFR ####[place] [address] Microcytosis 1+ Normal [facility] ([place] Comment on above: Performed By: #### C MP, ANEU, CBC, ADIFF, MORPH, DIFF, GFR ####[place] [address] Platelet Estimate Normal Normal [facility] ([place] Comment on above: Performed By: #### C MP, ANEU, CBC, ADIFF, MORPH, DIFF, GFR ####[place] [address] .NEUABSon 04-18-2024 Neutrophil, Absolute 30.6 10 3/mcL High 2.3-8.1 [facility] ([place]) Comment on above: Performed By: #### C MP, ANEU, CBC, ADIFF, MORPH, DIFF, GFR ####[address] [address] BMPon 04-18-2024 BUN/Creatinine Ratio 17.8 ratio Normal 10.0-22.0 [facility] ([place]) Comment on above: Performed By: #### B MP, MORPH, DIFF, GFR, CBC ####[place] [address] Calcium [Mass/Vol] 7.8 mg/dL Low 8.7-10.4 [facility] ([place]) Comment on above: Performed By: #### B MP, MORPH, DIFF, GFR, CBC ####[place] [address] Chloride [Moles/Vol] 101 mmol/L Normal 98-110 [facility] ([place]) Comment on above: Performed By: #### B MP, MORPH, DIFF, GFR, CBC ####[place] [address] CO2 [Moles/Vol] 27 mmol/L Normal 22-32 [facility] ([place]) Comment on above: Performed By: #### B MP, MORPH, DIFF, GFR, CBC ####[place] [address] Creatinine [Mass/Vol] 4.38 mg/dL High 0.60-1.40 [facility] ([place]) Comment on above: Performed By: #### B MP, MORPH, DIFF, GFR, CBC ####[place] [address] Electrolyte Balance 10.0 mEq/L Normal 4.0-15.0 [facility] ([place]) Comment on above: Performed By: #### B MP, MORPH, DIFF, GFR, CBC ####[place] [address] Glucose [Mass/Vol] 135 mg/dL High 70-110 [facility] ([place] Comment on above: Performed By: #### B MP, MORPH, DIFF, GFR, CBC ####[place] [address] Potassium [Moles/Vol] 4.0 mmol/L Normal 3.5-5.0 [facility] ([place]) Comment on above: Performed By: #### B MP, MORPH, DIFF, GFR, CBC ####[place] [address] Sodium [Moles/Vol] 138 mmol/L Normal 136-145 [facility] ([place] Comment on above: Performed By: #### B MP, MORPH, DIFF, GFR, CBC ####[place] [address] Urea nitrogen [Mass/Vol] 78.0 mg/dL High 8.0-22.0 [facility] ([place]) Comment on above: Performed By: #### B MP, MORPH, DIFF, GFR, CBC ####[place] [address] CBCon 04-18-2024 Erythrocyte distribution width (RBC) [Ratio] 16.2 % High 11.5-15.5 [facility] ([place] Comment on above: Performed By: #### B MP, MORPH, DIFF, GFR, CBC ####[place] [address] Hematocrit (Bld) [Volume fraction] 20.8 % Low 40.0-52.0 [facility] ([place]) Comment on above: Performed By: #### B MP, MORPH, DIFF, GFR, CBC ####[place] [address] Hgb 6.9 G/dL Critically abnormal 13.0-17.5 [facility] ([place] Comment on above: Performed By: #### B MP, MORPH, DIFF, GFR, CBC ####[place] [address] MCH (RBC) [Entitic mass] 25.4 pg Low 27.0-33.0 [facility] ([place]) Comment on above: Performed By: #### B MP, MORPH, DIFF, GFR, CBC ####[place] [address] MCHC 33.2 G/dL Normal 32.0-36.0 [facility] ([place]) Comment on above: Performed By: #### B MP, MORPH, DIFF, GFR, CBC ####[place] [address] MCV (RBC) [Entitic vol] 76.3 fL Low 81.0-100.0 [facility] ([place] Comment on above: Performed By: #### B MP, MORPH, DIFF, GFR, CBC ####[place] [address] Platelet 416 10 3/mcL Normal 150-450 [facility] ([place]) Comment on above: Performed By: #### B MP, MORPH, DIFF, GFR, CBC ####[place] [address] Platelet mean volume (Bld) [Entitic vol] 8.4 fL Normal 6.4-10.5 [facility] ([place]) Comment on above: Performed By: #### B MP, MORPH, DIFF, GFR, CBC ####[place] [address] RBC 2.72 10 6/mcL Low 4.50-6.00 [facility] ([place]) Comment on above: Performed By: #### B MP, MORPH, DIFF, GFR, CBC ####[place] [address] WBC 29.1 10 3/mcL High 4.5-10.8 [facility] ([place]) Comment on above: Performed By: #### B MP, MORPH, DIFF, GFR, CBC ####[place] [address] Erythrocyte distribution width (RBC) [Ratio] 16.3 % High 11.5-15.5 [facility] ([place] Comment on above: Performed By: #### C MP, ANEU, CBC, ADIFF, MORPH, DIFF, GFR ####[place] [address] Hematocrit (Bld) [Volume fraction] 20.1 % Low 40.0-52.0 [facility] ([place] Comment on above: Performed By: #### C MP, ANEU, CBC, ADIFF, MORPH, DIFF, GFR ####[place] [address] Hgb 6.5 G/dL Critically abnormal 13.0-17.5 [facility] ([place] Comment on above: Performed By: #### C MP, ANEU, CBC, ADIFF, MORPH, DIFF, GFR ####[place] [address] MCH (RBC) [Entitic mass] 24.8 pg Low 27.0-33.0 [facility] ([place]) Comment on above: Performed By: #### C MP, ANEU, CBC, ADIFF, MORPH, DIFF, GFR ####[place] [address] MCHC 32.4 G/dL Normal 32.0-36.0 [facility] ([place] Comment on above: Performed By: #### C MP, ANEU, CBC, ADIFF, MORPH, DIFF, GFR ####[place] [address] MCV (RBC) [Entitic vol] 76.4 fL Low 81.0-100.0 [facility] ([place]) Comment on above: Performed By: #### C MP, ANEU, CBC, ADIFF, MORPH, DIFF, GFR ####[place] [address] Platelet 441 10 3/mcL Normal 150-450 [facility] ([place]) Comment on above: Performed By: #### C MP, ANEU, CBC, ADIFF, MORPH, DIFF, GFR ####[place] [address] Platelet mean volume (Bld) [Entitic vol] 8.7 fL Normal 6.4-10.5 [facility] ([place]) Comment on above: Performed By: #### C MP, ANEU, CBC, ADIFF, MORPH, DIFF, GFR ####[place] [address] RBC 2.64 10 6/mcL Low 4.50-6.00 [facility] ([place] Comment on above: Performed By: #### C MP, ANEU, CBC, ADIFF, MORPH, DIFF, GFR ####[place] [address] WBC 35.1 10 3/mcL High 4.5-10.8 [facility] ([place]) Comment on above: Performed By: #### C MP, ANEU, CBC, ADIFF, MORPH, DIFF, GFR ####[address] [address] CMPon 04-18-2024 Albumin Level 1.4 G/dL Low 3.2-4.8 [facility] ([place] Comment on above: Performed By: #### C MP, ANEU, CBC, ADIFF, MORPH, DIFF, GFR ####[place] [address] Albumin/Globulin [Mass ratio] 0.3 {ratio} Low 0.9-1.6 [facility] ([place] Comment on above: Performed By: #### C MP, ANEU, CBC, ADIFF, MORPH, DIFF, GFR ####[place] [address] ALP [Catalytic activity/Vol] 241 U/L High 38-126 [facility] ([place] Comment on above: Performed By: #### C MP, ANEU, CBC, ADIFF, MORPH, DIFF, GFR ####[place] [address] ALT [Catalytic activity/Vol] 16 U/L Normal 12-55 [facility] ([place] Comment on above: Performed By: #### C MP, ANEU, CBC, ADIFF, MORPH, DIFF, GFR ####[place] [address] AST [Catalytic activity/Vol] 18 U/L Normal 8-34 [facility] ([place] Comment on above: Performed By: #### C MP, ANEU, CBC, ADIFF, MORPH, DIFF, GFR ####[place] [address] Bili Total 0.30 mg/dL Normal 0.20-1.20 [facility] ([place]) Comment on above: Result Comment: Use of this assay is not recommended for patients undergoing treatment with eltrombopag due to the potential for falsely elevated results. Performed By: #### C MP, ANEU, CBC, ADIFF, MORPH, DIFF, GFR ####[place] [address] BUN/Creatinine Ratio 18.0 ratio Normal 10.0-22.0 [facility] ([place]) Comment on above: Performed By: #### C MP, ANEU, CBC, ADIFF, MORPH, DIFF, GFR ####[address] [address] Calcium [Mass/Vol] 7.8 mg/dL Low 8.7-10.4 [facility] ([place] Comment on above: Performed By: #### C MP, ANEU, CBC, ADIFF, MORPH, DIFF, GFR ####[place] [address] Chloride [Moles/Vol] 100 mmol/L Normal 98-110 [facility] ([place]) Comment on above: Performed By: #### C MP, ANEU, CBC, ADIFF, MORPH, DIFF, GFR ####[place] [address] CO2 [Moles/Vol] 27 mmol/L Normal 22-32 [facility] ([place] Comment on above: Performed By: #### C MP, ANEU, CBC, ADIFF, MORPH, DIFF, GFR ####[place] [address] Creatinine [Mass/Vol] 4.34 mg/dL High 0.60-1.40 [facility] ([place]) Comment on above: Performed By: #### C MP, ANEU, CBC, ADIFF, MORPH, DIFF, GFR ####[place] [address] Electrolyte Balance 10.0 mEq/L Normal 4.0-15.0 [facility] ([place]) Comment on above: Performed By: #### C MP, ANEU, CBC, ADIFF, MORPH, DIFF, GFR ####[place] [id number] Globulin 4.9 G/dL High 1.5-3.8 [facility] ([place] Comment on above: Performed By: #### C MP, ANEU, CBC, ADIFF, MORPH, DIFF, GFR ####[place] [address] Glucose [Mass/Vol] 169 mg/dL High 70-110 [facility] ([place] Comment on above: Performed By: #### C MP, ANEU, CBC, ADIFF, MORPH, DIFF, GFR ####[address] [address] Potassium [Moles/Vol] 4.2 mmol/L Normal 3.5-5.0 [facility] ([place]) Comment on above: Performed By: #### C MP, ANEU, CBC, ADIFF, MORPH, DIFF, GFR ####[address] [address] Sodium [Moles/Vol] 137 mmol/L Normal 136-145 [facility] ([place] Comment on above: Performed By: #### C MP, ANEU, CBC, ADIFF, MORPH, DIFF, GFR ####[address] [address] Total Protein 6.3 G/dL Normal 5.7-8.2 [facility] ([place]) Comment on above: Result Comment: No te - New Reference Range in effect 20 Performed By: #### C MP, ANEU, CBC, ADIFF, MORPH, DIFF, GFR ####[place] [address] Urea nitrogen [Mass/Vol] 78.0 mg/dL High 8.0-22.0 [facility] ([place] Comment on above: Performed By: #### C MP, ANEU, CBC, ADIFF, MORPH, DIFF, GFR ####[address] [address] CURon 04-18-2024 CUR Normal [facility] ([place]) LABORATORYOrdered By: Nelida guzmán on 04-18-2024 RBC Product Ready RBC Ready for Pickup (04/18/24 3:15 PM) Normal AH BB Manual SS LABORATORYOrdered By: SYSTEM SYSTEM on 04-18-2024 Microcytes Ql (Bld) 1+ *NA* (04/18/24 2:06 PM) Invalid Interpretation Code AH Workflow SS Hypochromia Ql (Bld) 1+ *NA* (04/18/24 5:32 AM) Invalid Interpretation Code AH Workflow SS Myelocytes/100 WBC (Bld) 1.0 % Invalid Interpretation Code AH Workflow SS LABORATORYOrdered By: Magdalene Fernandez on 04-18-2024 RBC Product Ready RBC Ready for Pickup (04/18/24 11:55 AM) Normal AH BB Manual SS Laboratory - Microbiology an d Antimicrobial susceptibilityOrdered By: [facility] on 04-18-2024 Bacteria identified Cx Nom (Bld) Culture has been received in lab and is no growth to date. Culture will be held for four weeks. [facility] Bacteria identified Cx Nom (Bld) Culture has been received in lab and is no growth to date. Culture will be held for four weeks. [facility] No Panel Informationon 04-18 Culture Urine No growth at [address] [facility] Work Phone: RBC (Product)on 04-18-2024 RBC Product Ready RBC Ready for Pickup Normal [facility] ([place]) Comment on above: Performed By: #### R BCP ####[place] [address] RBC Product Ready RBC Ready for Pickup Normal [facility] ([place]) Comment on above: Performed By: #### R BCP ####[place] [address] RBC Product Ready RBC Ready for Pickup Normal [facility] ([place]) Comment on above: Performed By: #### R BCP ####[place] [address] .GFRon 2024 GFR 18 ml/min/1.73sqm Normal [facility] ([place]) Comment on above: Result Comment: GFR Population mean for , Non- Americans Ages 20-29 = 116 mL/min/1.73 sq.m. Ages 30-39 = 107 mL/min/1.73 sq.m. Ages 40-49 = 99 mL/min/1.73 sq.m. Ages 50-59 = 93 mL/min/1.73 sq.m. Ages 60-69 = 85 mL/min/1.73 sq.m. Ages 70+ = 75 mL/min/1.73 sq.m.Chronic Kidney Disease: Less than 60 mL/min/1.73 square metersEnd Stage Renal Disease: Less than 15 mL/min/1.73 square meters Performed By: #### L AC, PHOS, TROPHS, MG, BMP, GFR ####[address] [address] GFR Non- 15 ml/min/1.73sqm Normal [facility] ([place]) Comment on above: Result Comment: GFR Population mean for , Non- Americans Ages 20-29 = 116 mL/min/1.73 sq.m. Ages 30-39 = 107 mL/min/1.73 sq.m. Ages 40-49 = 99 mL/min/1.73 sq.m. Ages 50-59 = 93 mL/min/1.73 sq.m. Ages 60-69 = 85 mL/min/1.73 sq.m. Ages 70+ = 75 mL/min/1.73 sq.m.Chronic Kidney Disease: Less than 60 mL/min/1.73 square metersEnd Stage Renal Disease: Less than 15 mL/min/1.73 square meters Performed By: #### L AC, PHOS, TROPHS, MG, BMP, GFR ####[address] [address] GFR 19 ml/min/1.73sqm [facility] ([place]) Comment on above: Result Comment: GFR Population mean for , Non- Americans Ages 20-29 = 116 mL/min/1.73 sq.m. Ages 30-39 = 107 mL/min/1.73 sq.m. Ages 40-49 = 99 mL/min/1.73 sq.m. Ages 50-59 = 93 mL/min/1.73 sq.m. Ages 60-69 = 85 mL/min/1.73 sq.m. Ages 70+ = 75 mL/min/1.73 sq.m.Chronic Kidney Disease: Less than 60 mL/min/1.73 square metersEnd Stage Renal Disease: Less than 15 mL/min/1.73 square meters Performed By: #### D IFF, PHOS, CMP, MG, CBC, MORPH, A1C, GFR, LAC ####[address] [address] GFR Non- 16 ml/min/1.73sqm Normal [facility] ([place]) Comment on above: Result Comment: GFR Population mean for , Non- Americans Ages 20-29 = 116 mL/min/1.73 sq.m. Ages 30-39 = 107 mL/min/1.73 sq.m. Ages 40-49 = 99 mL/min/1.73 sq.m. Ages 50-59 = 93 mL/min/1.73 sq.m. Ages 60-69 = 85 mL/min/1.73 sq.m. Ages 70+ = 75 mL/min/1.73 sq.m.Chronic Kidney Disease: Less than 60 mL/min/1.73 square metersEnd Stage Renal Disease: Less than 15 mL/min/1.73 square meters Performed By: #### D IFF, PHOS, CMP, MG, CBC, MORPH, A1C, GFR, LAC ####[address] [address] GFR Non- 15 ml/min/1.73sqm Normal [facility] ([place]) Comment on above: Result Comment: GFR Population mean for , Non- Americans Ages 20-29 = 116 mL/min/1.73 sq.m. Ages 30-39 = 107 mL/min/1.73 sq.m. Ages 40-49 = 99 mL/min/1.73 sq.m. Ages 50-59 = 93 mL/min/1.73 sq.m. Ages 60-69 = 85 mL/min/1.73 sq.m. Ages 70+ = 75 mL/min/1.73 sq.m.Chronic Kidney Disease: Less than 60 mL/min/1.73 square metersEnd Stage Renal Disease: Less than 15 mL/min/1.73 square meters Performed By: #### C BC, MORPH, LAC, DIFF, PHOS, MG, GFR, CMP ####[address] [address] GFR 19 ml/min/1.73sqm Normal [facility] ([place]) Comment on above: Result Comment: GFR Population mean for , Non- Americans Ages 20-29 = 116 mL/min/1.73 sq.m. Ages 30-39 = 107 mL/min/1.73 sq.m. Ages 40-49 = 99 mL/min/1.73 sq.m. Ages 50-59 = 93 mL/min/1.73 sq.m. Ages 60-69 = 85 mL/min/1.73 sq.m. Ages 70+ = 75 mL/min/1.73 sq.m.Chronic Kidney Disease: Less than 60 mL/min/1.73 square metersEnd Stage Renal Disease: Less than 15 mL/min/1.73 square meters Performed By: #### C BC, MORPH, LAC, DIFF, PHOS, MG, GFR, CMP ####[place] [address] .Manual Diffon 2024 Bands 7.0 % High 0.0-5.0 [facility] ([place] Comment on above: Performed By: #### D IFF, PHOS, CMP, MG, CBC, MORPH, A1C, GFR, LAC ####[place] [address] Basophil %, Manual 0.0 % Normal 0.0-2.5 [facility] ([place] Comment on above: Performed By: #### D IFF, PHOS, CMP, MG, CBC, MORPH, A1C, GFR, LAC ####[place] [address] Basophil, Abs Manual 0.0 10 3/mcL Normal 0.0-0.3 [facility] ([place]) Comment on above: Performed By: #### D IFF, PHOS, CMP, MG, CBC, MORPH, A1C, GFR, LAC ####[place] [address] Eosinophil %, Manual 0.0 % Normal 0.0-6.0 [facility] ([place]) Comment on above: Performed By: #### D IFF, PHOS, CMP, MG, CBC, MORPH, A1C, GFR, LAC ####[place] [address] Eosinophil, Abs Manual 0.0 10 3/mcL Normal 0.0-0.7 [facility] ([place]) Comment on above: Performed By: #### D IFF, PHOS, CMP, MG, CBC, MORPH, A1C, GFR, LAC ####[address] [address] Lymphocyte %, Manual 18.0 % Low 20.0-40.0 [facility] ([place]) Comment on above: Performed By: #### D IFF, PHOS, CMP, MG, CBC, MORPH, A1C, GFR, LAC ####[address] [address] Lymphocyte, Abs Manual 7.3 10 3/mcL High 0.9-4.3 [facility] ([place]) Comment on above: Performed By: #### D IFF, PHOS, CMP, MG, CBC, MORPH, A1C, GFR, LAC ####[address] [address] Metamyelocyte 2.0 % Normal [facility] ([place]) Comment on above: Performed By: #### D IFF, PHOS, CMP, MG, CBC, MORPH, A1C, GFR, LAC ####[address] [address] Monocyte %, Manual 8.0 % Normal 2.0-13.0 [facility] ([place]) Comment on above: Performed By: #### D IFF, PHOS, CMP, MG, CBC, MORPH, A1C, GFR, LAC ####[address] [address] Monocyte, Abs Manual 3.3 10 3/mcL High 0.1-1.4 [facility] ([place]) Comment on above: Performed By: #### D IFF, PHOS, CMP, MG, CBC, MORPH, A1C, GFR, LAC ####[address] [address] Neutrophil %, Manual 65.0 % Normal 50.0-75.0 [facility] ([place]) Comment on above: Performed By: #### D IFF, PHOS, CMP, MG, CBC, MORPH, A1C, GFR, LAC ####[address] [address] Neutrophil, Abs Manual 29.3 10 3/mcL High 2.3-8.1 [facility] ([place]) Comment on above: Performed By: #### D IFF, PHOS, CMP, MG, CBC, MORPH, A1C, GFR, LAC ####[place] [address] Nucleated RBC 0.0 /100 WBC Normal [facility] ([place]) Comment on above: Performed By: #### D IFF, PHOS, CMP, MG, CBC, MORPH, A1C, GFR, LAC ####[address] [address] Bands 16.0 % High 0.0-5.0 [facility] ([place]) Comment on above: Performed By: #### C BC, MORPH, LAC, DIFF, PHOS, MG, GFR, CMP ####[place] [address] Basophil %, Manual 0.0 % Normal 0.0-2.5 [facility] ([place]) Comment on above: Performed By: #### C BC, MORPH, LAC, DIFF, PHOS, MG, GFR, CMP ####[place] [phone] Basophil, Abs Manual 0.0 10 3/mcL Normal 0.0-0.3 [facility] ([place]) Comment on above: Performed By: #### C BC, MORPH, LAC, DIFF, PHOS, MG, GFR, CMP ####[place] [address] Eosinophil %, Manual 0.0 % Normal 0.0-6.0 [facility] ([place]) Comment on above: Performed By: #### C BC, MORPH, LAC, DIFF, PHOS, MG, GFR, CMP ####[place] [phone] Eosinophil, Abs Manual 0.0 10 3/mcL Normal 0.0-0.7 [facility] ([place]) Comment on above: Performed By: #### C BC, MORPH, LAC, DIFF, PHOS, MG, GFR, CMP ####[address] [address] Lymphocyte %, Manual 7.0 % Low 20.0-40.0 [facility] ([place]) Comment on above: Performed By: #### C BC, MORPH, LAC, DIFF, PHOS, MG, GFR, CMP ####[address] [address] Lymphocyte, Abs Manual 2.9 10 3/mcL Normal 0.9-4.3 [facility] ([place]) Comment on above: Performed By: #### C BC, MORPH, LAC, DIFF, PHOS, MG, GFR, CMP ####[address] [address] Metamyelocyte 2.0 % Normal [facility] ([place]) Comment on above: Performed By: #### C BC, MORPH, LAC, DIFF, PHOS, MG, GFR, CMP ####[address] [address] Monocyte %, Manual 8.0 % Normal 2.0-13.0 [facility] ([place] Comment on above: Performed By: #### C BC, MORPH, LAC, DIFF, PHOS, MG, GFR, CMP ####[address] [address] Monocyte, Abs Manual 3.3 10 3/mcL High 0.1-1.4 [facility] ([place] Comment on above: Performed By: #### C BC, MORPH, LAC, DIFF, PHOS, MG, GFR, CMP ####[address] [address] Neutrophil %, Manual 67.0 % Normal 50.0-75.0 [facility] ([place] Comment on above: Performed By: #### C BC, MORPH, LAC, DIFF, PHOS, MG, GFR, CMP ####[address] [address] Neutrophil, Abs Manual 34.4 10 3/mcL High 2.3-8.1 [facility] ([place] Comment on above: Performed By: #### C BC, MORPH, LAC, DIFF, PHOS, MG, GFR, CMP ####[place] [address] Nucleated RBC 0.0 /100 WBC Normal [facility] ([place]) Comment on above: Performed By: #### C BC, MORPH, LAC, DIFF, PHOS, MG, GFR, CMP ####[place] [address] .Morphon 2024 Anisocytosis Ql (Bld) 1+ Normal [facility] ([place]) Comment on above: Performed By: #### D IFF, PHOS, CMP, MG, CBC, MORPH, A1C, GFR, LAC ####[place] [address] Hypochrom 1+ Normal [facility] ([place] Comment on above: Performed By: #### D IFF, PHOS, CMP, MG, CBC, MORPH, A1C, GFR, LAC ####[place] [address] Microcytosis 1+ Normal [facility] ([place] Comment on above: Performed By: #### D IFF, PHOS, CMP, MG, CBC, MORPH, A1C, GFR, LAC ####[place] [address] Platelet Clumps Few Normal [facility] ([place] Comment on above: Performed By: #### D IFF, PHOS, CMP, MG, CBC, MORPH, A1C, GFR, LAC ####[place] [address] Platelet Estimate Slt Increased Normal [facility] ([place] Comment on above: Performed By: #### D IFF, PHOS, CMP, MG, CBC, MORPH, A1C, GFR, LAC ####[place] [address] Poik 1+ Normal [facility] ([place] Comment on above: Performed By: #### D IFF, PHOS, CMP, MG, CBC, MORPH, A1C, GFR, LAC ####[place] [address] Anisocytosis Ql (Bld) 1+ Normal [facility] ([place] Comment on above: Performed By: #### C BC, MORPH, LAC, DIFF, PHOS, MG, GFR, CMP ####[place] [address] Hypochrom 1+ Normal [facility] ([place] Comment on above: Performed By: #### C BC, MORPH, LAC, DIFF, PHOS, MG, GFR, CMP ####[place] [address] Microcytosis 1+ Normal [facility] ([place] Comment on above: Performed By: #### C BC, MORPH, LAC, DIFF, PHOS, MG, GFR, CMP ####[place] [address] Ovalocytes 1+ Normal [facility] ([place] Comment on above: Performed By: #### C BC, MORPH, LAC, DIFF, PHOS, MG, GFR, CMP ####[place] [address] Platelet Estimate Normal Normal [facility] ([place] Comment on above: Performed By: #### C BC, MORPH, LAC, DIFF, PHOS, MG, GFR, CMP ####[place] [address] Polychrom 1+ Normal [facility] ([place] Comment on above: Performed By: #### C BC, MORPH, LAC, DIFF, PHOS, MG, GFR, CMP ####[place] [address] Toxic Gran 1+ Normal [facility] ([place] Comment on above: Performed By: #### C BC, MORPH, LAC, DIFF, PHOS, MG, GFR, CMP ####[place] [address] A1Con 2024 HbA1c (Bld) [Mass fraction] 14.9 % High 4.0-6.0 [facility] ([place] Comment on above: Performed By: #### D IFF, PHOS, CMP, MG, CBC, MORPH, A1C, GFR, LAC ####[place] [address] ABO/Rh (Gel)on 05-30-2024 ABO/Rh Interp Positive Invalid Interpretation Code [facility] ([place] Comment on above: Performed By: #### A KIMMY JONES ####[place] [phone] ABS (Gel)on 2024 ABSC Interp (Gel) Negative Normal [facility] ([place]) Comment on above: Performed By: #### A KIMMY JONES ####[place] [address] BGon 2024 Base excess Calc (Bld) [Moles/Vol] -6.2000 mmol/L Normal [facility] ([place]) Comment on above: Performed By: #### B G ####[place] [address] CO2 [Moles/Vol] 20.0 mmol/L Low 22.0-30.0 [facility] ([place] Comment on above: Performed By: #### B G ####[place] [address] HCO3 (Bld) [Moles/Vol] 18.9 mmol/L Low 21.0-29.0 [facility] ([place]) Comment on above: Performed By: #### B G ####[place] [address] Oxygen (Bld) [Partial pressure] 93.8 mm[Hg] Normal 74.0-108.0 [facility] ([place] Comment on above: Performed By: #### B G ####[place] [address] Oxygen saturation in Blood 97.5 % High 92.0-96.0 [facility] ([place] Comment on above: Performed By: #### B G ####[place] [address] pCO2 36.0 mmHg Normal 32.0-46.0 [facility] ([place] Comment on above: Performed By: #### B G ####[place] [phone] pH (Bld) 7.339 [pH] Low 7.380-7.46 0 [facility] ([place] Comment on above: Performed By: #### B G ####[address] [address] Base excess Calc (Bld) [Moles/Vol] -4.8000 mmol/L Normal [facility] ([place] Comment on above: Performed By: #### B G ####[address] [address] CO2 [Moles/Vol] 24.4 mmol/L Normal 22.0-30.0 [facility] ([place] Comment on above: Performed By: #### B G ####[address] [address] HCO3 (Bld) [Moles/Vol] 22.6 mmol/L Normal 21.0-29.0 [facility] ([place] Comment on above: Performed By: #### B G ####[place] [address] Oxygen (Bld) [Partial pressure] 116.5 mm[Hg] High 74.0-108.0 [facility] ([place] Comment on above: Performed By: #### B G ####[place] [address] Oxygen saturation in Blood 98.8 % High 92.0-96.0 [facility] ([place] Comment on above: Performed By: #### B G ####[place] [address] pCO2 56.2 mmHg High 32.0-46.0 [facility] ([place] Comment on above: Performed By: #### B G ####[place] [phone] [address] [place] [address] pH (Bld) 7.223 [pH] Low 7.380-7.46 0 [facility] ([place] Comment on above: Performed By: #### B G ####[address] [address] BMPon 2024 BUN/Creatinine Ratio 17.7 ratio Normal 10.0-22.0 [facility] ([place]) Comment on above: Performed By: #### L AC, PHOS, TROPHS, MG, BMP, GFR ####[address] [address] Calcium [Mass/Vol] 7.8 mg/dL Low 8.7-10.4 [facility] ([place] Comment on above: Performed By: #### L AC, PHOS, TROPHS, MG, BMP, GFR ####[address] [address] Chloride [Moles/Vol] 100 mmol/L Normal 98-110 [facility] ([place] Comment on above: Performed By: #### L AC, PHOS, TROPHS, MG, BMP, GFR ####[place] [address] CO2 [Moles/Vol] 25 mmol/L Normal 22-32 [facility] ([place] Comment on above: Performed By: #### L AC, PHOS, TROPHS, MG, BMP, GFR ####[place] [address] Creatinine [Mass/Vol] 4.29 mg/dL High 0.60-1.40 [facility] ([place]) Comment on above: Performed By: #### L AC, PHOS, TROPHS, MG, BMP, GFR ####[place] [address] Electrolyte Balance 10.0 mEq/L Normal 4.0-15.0 [facility] ([place] Comment on above: Performed By: #### L AC, PHOS, TROPHS, MG, BMP, GFR ####[place] [address] Glucose [Mass/Vol] 248 mg/dL High 70-110 [facility] ([place] Comment on above: Performed By: #### L AC, PHOS, TROPHS, MG, BMP, GFR ####[place] [address] Potassium [Moles/Vol] 5.1 mmol/L High 3.5-5.0 [facility] ([place]) Comment on above: Performed By: #### L AC, PHOS, TROPHS, MG, BMP, GFR ####[address] [address] Sodium [Moles/Vol] 135 mmol/L Low 136-145 [facility] ([place] Comment on above: Performed By: #### L AC, PHOS, TROPHS, MG, BMP, GFR ####[address] [address] Urea nitrogen [Mass/Vol] 76.0 mg/dL High 8.0-22.0 [facility] ([place]) Comment on above: Performed By: #### L AC, PHOS, TROPHS, MG, BMP, GFR ####[place] [phone] CBCon 2024 Erythrocyte distribution width (RBC) [Ratio] 16.4 % High 11.5-15.5 [facility] ([place] Comment on above: Performed By: #### D IFF, PHOS, CMP, MG, CBC, MORPH, A1C, GFR, LAC ####[place] [address] Hematocrit (Bld) [Volume fraction] 22.8 % Low 40.0-52.0 [facility] ([place] Comment on above: Performed By: #### D IFF, PHOS, CMP, MG, CBC, MORPH, A1C, GFR, LAC ####[place] [address] Hgb 7.2 G/dL Low 13.0-17.5 [facility] ([place]) Comment on above: Performed By: #### D IFF, PHOS, CMP, MG, CBC, MORPH, A1C, GFR, LAC ####[address] [address] MCH (RBC) [Entitic mass] 24.2 pg Low 27.0-33.0 [facility] ([place] Comment on above: Performed By: #### D IFF, PHOS, CMP, MG, CBC, MORPH, A1C, GFR, LAC ####[place] [address] MCHC 31.5 G/dL Low 32.0-36.0 [facility] ([place] Comment on above: Performed By: #### D IFF, PHOS, CMP, MG, CBC, MORPH, A1C, GFR, LAC ####[address] [address] MCV (RBC) [Entitic vol] 76.7 fL Low 81.0-100.0 [facility] ([place] Comment on above: Performed By: #### D IFF, PHOS, CMP, MG, CBC, MORPH, A1C, GFR, LAC ####[address] [address] Platelet 488 10 3/mcL High 150-450 [facility] ([place]) Comment on above: Performed By: #### D IFF, PHOS, CMP, MG, CBC, MORPH, A1C, GFR, LAC ####[address] [address] Platelet mean volume (Bld) [Entitic vol] 8.6 fL Normal 6.4-10.5 [facility] ([place] Comment on above: Performed By: #### D IFF, PHOS, CMP, MG, CBC, MORPH, A1C, GFR, LAC ####[address] [address] RBC 2.97 10 6/mcL Low 4.50-6.00 [facility] ([place]) Comment on above: Performed By: #### D IFF, PHOS, CMP, MG, CBC, MORPH, A1C, GFR, LAC ####[place] [phone] WBC 40.7 10 3/mcL High 4.5-10.8 [facility] ([place] Comment on above: Performed By: #### D IFF, PHOS, CMP, MG, CBC, MORPH, A1C, GFR, LAC ####[address] [address] Erythrocyte distribution width (RBC) [Ratio] 16.4 % High 11.5-15.5 [facility] ([place] Comment on above: Performed By: #### C BC, MORPH, LAC, DIFF, PHOS, MG, GFR, CMP ####[place] [address] Hematocrit (Bld) [Volume fraction] 23.1 % Low 40.0-52.0 [facility] ([place] Comment on above: Performed By: #### C BC, MORPH, LAC, DIFF, PHOS, MG, GFR, CMP ####[place] [address] Hgb 7.3 G/dL Low 13.0-17.5 [facility] ([place] Comment on above: Performed By: #### C BC, MORPH, LAC, DIFF, PHOS, MG, GFR, CMP ####[place] [address] MCH (RBC) [Entitic mass] 24.2 pg Low 27.0-33.0 [facility] ([place] Comment on above: Performed By: #### C BC, MORPH, LAC, DIFF, PHOS, MG, GFR, CMP ####[place] [address] MCHC 31.5 G/dL Low 32.0-36.0 [facility] ([place] Comment on above: Performed By: #### C BC, MORPH, LAC, DIFF, PHOS, MG, GFR, CMP ####[place] [address] MCV (RBC) [Entitic vol] 76.7 fL Low 81.0-100.0 [facility] ([place] Comment on above: Performed By: #### C BC, MORPH, LAC, DIFF, PHOS, MG, GFR, CMP ####[place] [address] Platelet 485 10 3/mcL High 150-450 [facility] ([place] Comment on above: Performed By: #### C BC, MORPH, LAC, DIFF, PHOS, MG, GFR, CMP ####[place] [address] Platelet mean volume (Bld) [Entitic vol] 8.3 fL Normal 6.4-10.5 [facility] ([place] Comment on above: Performed By: #### C BC, MORPH, LAC, DIFF, PHOS, MG, GFR, CMP ####[place] [phone] [address] [place] [address] RBC 3.01 10 6/mcL Low 4.50-6.00 [facility] ([place] Comment on above: Performed By: #### C BC, MORPH, LAC, DIFF, PHOS, MG, GFR, CMP ####[address] [address] WBC 41.5 10 3/mcL High 4.5-10.8 [facility] ([place] Comment on above: Performed By: #### C BC, MORPH, LAC, DIFF, PHOS, MG, GFR, CMP ####[address] [address] CMPon 2024 Albumin Level 1.5 G/dL Low 3.2-4.8 [facility] ([place]) Comment on above: Performed By: #### D IFF, PHOS, CMP, MG, CBC, MORPH, A1C, GFR, LAC ####[address] [address] Albumin/Globulin [Mass ratio] 0.3 {ratio} Low 0.9-1.6 [facility] ([place] Comment on above: Performed By: #### D IFF, PHOS, CMP, MG, CBC, MORPH, A1C, GFR, LAC ####[address] [address] ALP [Catalytic activity/Vol] 244 U/L High 38-126 [facility] ([place]) Comment on above: Performed By: #### D IFF, PHOS, CMP, MG, CBC, MORPH, A1C, GFR, LAC ####[address] [address] ALT [Catalytic activity/Vol] 18 U/L Normal 12-55 [facility] ([place]) Comment on above: Performed By: #### D IFF, PHOS, CMP, MG, CBC, MORPH, A1C, GFR, LAC ####[address] [address] AST [Catalytic activity/Vol] 25 U/L Normal 8-34 [facility] ([place]) Comment on above: Performed By: #### D IFF, PHOS, CMP, MG, CBC, MORPH, A1C, GFR, LAC ####[address] [address] Bili Total 0.20 mg/dL Normal 0.20-1.20 [facility] ([place]) Comment on above: Result Comment: Use of this assay is not recommended for patients undergoing treatment with eltrombopag due to the potential for falsely elevated results. Performed By: #### D IFF, PHOS, CMP, MG, CBC, MORPH, A1C, GFR, LAC ####[address] [address] BUN/Creatinine Ratio 18.2 ratio Normal 10.0-22.0 [facility] ([place] Comment on above: Performed By: #### D IFF, PHOS, CMP, MG, CBC, MORPH, A1C, GFR, LAC ####[address] [address] Calcium [Mass/Vol] 8.1 mg/dL Low 8.7-10.4 [facility] ([place] Comment on above: Performed By: #### D IFF, PHOS, CMP, MG, CBC, MORPH, A1C, GFR, LAC ####[address] [address] Chloride [Moles/Vol] 102 mmol/L Normal 98-110 [facility] ([place]) Comment on above: Performed By: #### D IFF, PHOS, CMP, MG, CBC, MORPH, A1C, GFR, LAC ####[address] [address] CO2 [Moles/Vol] 23 mmol/L Normal 22-32 [facility] ([place] Comment on above: Performed By: #### D IFF, PHOS, CMP, MG, CBC, MORPH, A1C, GFR, LAC ####[address] [address] Creatinine [Mass/Vol] 4.11 mg/dL High 0.60-1.40 [facility] ([place]) Comment on above: Performed By: #### D IFF, PHOS, CMP, MG, CBC, MORPH, A1C, GFR, LAC ####[address] [address] Electrolyte Balance 11.0 mEq/L Normal 4.0-15.0 [facility] ([place] Comment on above: Performed By: #### D IFF, PHOS, CMP, MG, CBC, MORPH, A1C, GFR, LAC ####[address] [address] Globulin 5.0 G/dL High 1.5-3.8 [facility] ([place] Comment on above: Performed By: #### D IFF, PHOS, CMP, MG, CBC, MORPH, A1C, GFR, LAC ####[address] [address] Glucose [Mass/Vol] 191 mg/dL High 70-110 [facility] ([place] Comment on above: Performed By: #### D IFF, PHOS, CMP, MG, CBC, MORPH, A1C, GFR, LAC ####[address] [address] Potassium [Moles/Vol] 4.5 mmol/L Normal 3.5-5.0 [facility] ([place] Comment on above: Performed By: #### D IFF, PHOS, CMP, MG, CBC, MORPH, A1C, GFR, LAC ####[address] [address] Sodium [Moles/Vol] 136 mmol/L Normal 136-145 [facility] ([place] Comment on above: Performed By: #### D IFF, PHOS, CMP, MG, CBC, MORPH, A1C, GFR, LAC ####[address] [address] Total Protein 6.5 G/dL Normal 5.7-8.2 [facility] ([place]) Comment on above: Result Comment: No te - New Reference Range in effect 20 Performed By: #### D IFF, PHOS, CMP, MG, CBC, MORPH, A1C, GFR, LAC ####[address] [address] Urea nitrogen [Mass/Vol] 75.0 mg/dL High 8.0-22.0 [facility] ([place] Comment on above: Performed By: #### D IFF, PHOS, CMP, MG, CBC, MORPH, A1C, GFR, LAC ####[address] [address] Albumin Level 1.5 G/dL Low 3.2-4.8 [facility] ([place] Comment on above: Performed By: #### C BC, MORPH, LAC, DIFF, PHOS, MG, GFR, CMP ####[address] [address] Albumin/Globulin [Mass ratio] 0.3 {ratio} Low 0.9-1.6 [facility] ([place] Comment on above: Performed By: #### C BC, MORPH, LAC, DIFF, PHOS, MG, GFR, CMP ####[address] [address] ALP [Catalytic activity/Vol] 231 U/L High 38-126 [facility] ([place] Comment on above: Performed By: #### C BC, MORPH, LAC, DIFF, PHOS, MG, GFR, CMP ####[address] [address] ALT [Catalytic activity/Vol] 16 U/L Normal 12-55 [facility] ([place] Comment on above: Performed By: #### C BC, MORPH, LAC, DIFF, PHOS, MG, GFR, CMP ####[address] [address] AST [Catalytic activity/Vol] 20 U/L Normal 8-34 [facility] ([place] Comment on above: Performed By: #### C BC, MORPH, LAC, DIFF, PHOS, MG, GFR, CMP ####[place] [phone] Bili Total 0.20 mg/dL Normal 0.20-1.20 [facility] ([place] Comment on above: Result Comment: Use of this assay is not recommended for patients undergoing treatment with eltrombopag due to the potential for falsely elevated results. Performed By: #### C BC, MORPH, LAC, DIFF, PHOS, MG, GFR, CMP ####[place] [phone] BUN/Creatinine Ratio 18.2 ratio Normal 10.0-22.0 [facility] ([place] Comment on above: Performed By: #### C BC, MORPH, LAC, DIFF, PHOS, MG, GFR, CMP ####[address] [address] Calcium [Mass/Vol] 8.0 mg/dL Low 8.7-10.4 [facility] ([place] Comment on above: Performed By: #### C BC, MORPH, LAC, DIFF, PHOS, MG, GFR, CMP ####[place] [address] Chloride [Moles/Vol] 104 mmol/L Normal 98-110 [facility] ([place] Comment on above: Performed By: #### C BC, MORPH, LAC, DIFF, PHOS, MG, GFR, CMP ####[place] [phone] CO2 [Moles/Vol] 23 mmol/L Normal 22-32 [facility] ([place] Comment on above: Performed By: #### C BC, MORPH, LAC, DIFF, PHOS, MG, GFR, CMP ####[address] [address] Creatinine [Mass/Vol] 4.17 mg/dL High 0.60-1.40 [facility] ([place] Comment on above: Performed By: #### C BC, MORPH, LAC, DIFF, PHOS, MG, GFR, CMP ####[address] [address] Electrolyte Balance 10.0 mEq/L Normal 4.0-15.0 [facility] ([place] Comment on above: Performed By: #### C BC, MORPH, LAC, DIFF, PHOS, MG, GFR, CMP ####[address] [address] Globulin 5.1 G/dL High 1.5-3.8 [facility] ([place] Comment on above: Performed By: #### C BC, MORPH, LAC, DIFF, PHOS, MG, GFR, CMP ####[address] [address] Glucose [Mass/Vol] 218 mg/dL High 70-110 [facility] ([place] Comment on above: Performed By: #### C BC, MORPH, LAC, DIFF, PHOS, MG, GFR, CMP ####[place] [address] Potassium [Moles/Vol] 4.7 mmol/L Normal 3.5-5.0 [facility] ([place] Comment on above: Performed By: #### C BC, MORPH, LAC, DIFF, PHOS, MG, GFR, CMP ####[place] [address] Sodium [Moles/Vol] 137 mmol/L Normal 136-145 [facility] ([place] Comment on above: Performed By: #### C BC, MORPH, LAC, DIFF, PHOS, MG, GFR, CMP ####[place] [address] Total Protein 6.6 G/dL Normal 5.7-8.2 [facility] ([place] Comment on above: Result Comment: No te - New Reference Range in effect 20 Performed By: #### C BC, MORPH, LAC, DIFF, PHOS, MG, GFR, CMP ####[place] [address] Urea nitrogen [Mass/Vol] 76.0 mg/dL High 8.0-22.0 [facility] ([place] Comment on above: Performed By: #### C BC, MORPH, LAC, DIFF, PHOS, MG, GFR, CMP ####[place] [address] Final Surgical Pathology Rep [facility] 2024 Final Surgical Pathology Report Normal [facility] ([place]) [facility] 2024 Hematocrit (Bld) [Volume fraction] 20.8 % Low 40.0-52.0 [facility] ([place]) Comment on above: Performed By: #### H H ####[place] [phone] [address] [place] [address] Hgb 6.7 G/dL Critically abnormal 13.0-17.5 [facility] ([place]) Comment on above: Performed By: #### H H ####[address] [address] LABORATORYOrdered By: Magdalene Puckett on 2024 ABO and Rh group Nom (Bld) Blood group O Rh(D) positive Invalid Interpretation Code AH BB Auto SS Blood group antibody screen Ql Negative ABSC (04/17/24 8:44 PM) Normal AH BB Auto SS LABORATORYOrdered By: Petra De Jesus on 2024 LDose Vancomycin: (random) See eMAR (04/17/24 8:44 PM) Normal AH Chemistry S LABORATORYOrdered By: [employer] on 2024 Vancomycin [Mass/Vol] 18.8 mcg/mL Invalid Interpretation Code AH ADM SS Troponin I.cardiac DL <= 0.01 ng/mL [Mass/Vol] 21 ng/L Normal 0 - 54 ng/L AH ADM SS Comment on above: Interpretive Data: High Sensitive Troponin I Reference Ranges: Female: 0-34 ng/L Male: 0-54 ng/L Testing performed on MEEP analyzer using direct chemiluminescent technology. HbA1c (Bld) [Mass fraction] 14.9 % High 4.0 - 6.0 % Auto Chem SS Hypochromia Ql (Bld) 1+ *NA* (04/17/24 4:33 AM) Invalid Interpretation Code AH Workflow SS Platelet Clumps Few *NA* (04/17/24 4:33 AM) Invalid Interpretation Code AH Workflow SS Poikilocytosis LM Ql (Bld) 1+ *NA* (04/17/24 4:33 AM) Invalid Interpretation Code AH Workflow SS Ovalocytes LM Ql (Bld) 1+ *NA* (04/17/24 12:16 AM) Invalid Interpretation Code AH Workflow SS LABORATORYOrdered By: Roberto Rock on 2024 Lactic Acid Lvl 1.4 mmol/L Normal 0.2 - 2.0 mmol/L Main Rapid Comm SS LABORATORYOrdered By: Radha Craft on 2024 Lactic Acid Lvl 2.0 mmol/L Normal 0.2 - 2.0 mmol/L AH Main Rapid Comm SS Base Excess -4.8 mmol/L Invalid Interpretation Code AH Main Rapid Comm SS CO2 [Moles/Vol] 24.4 mmol/L Normal 22.0 - 30.0 mmol/L AH Main Rapid Comm SS HCO3 (Bld) [Moles/Vol] 22.6 mmol/L Normal 21.0 - 29.0 mmol/L AH Main Rapid Comm SS Oxygen (Bld) [Partial pressure] 116.5 mm[Hg] High 74.0 - 108.0 mm Hg AH Main Rapid Comm SS pCO2 56.2 mm[Hg] High 32.0 - 46.0 mm Hg Main Rapid Comm SS pH (Bld) 7.223 [pH] Low 7.380 - 7.460 Main Rapid Comm SS LABORATORYOrdered By: Aleksey Barajas on 2024 Base Excess -6.2 mmol/L Invalid Interpretation Code Main Rapid Comm SS CO2 [Moles/Vol] 20.0 mmol/L Low 22.0 - 30.0 mmol/L Main Rapid Comm SS HCO3 (Bld) [Moles/Vol] 18.9 mmol/L Low 21.0 - 29.0 mmol/L Main Rapid Comm SS Lactic Acid Lvl 1.9 mmol/L Normal 0.2 - 2.0 mmol/L Main Rapid Comm SS Oxygen (Bld) [Partial pressure] 93.8 mm[Hg] Normal 74.0 - 108.0 mm Hg AH Main Rapid Comm SS pCO2 36.0 mm[Hg] Normal 32.0 - 46.0 mm Hg Main Rapid Comm SS pH (Bld) 7.339 [pH] Low 7.380 - 7.460 Main Rapid Comm SS LACon 2024 Lactic Acid Lvl 1.4 mmol/L Normal 0.2-2.0 [facility] ([place]) Comment on above: Performed By: #### L AC, PHOS, TROPHS, MG, BMP, GFR ####[place] [address] Lactic Acid Lvl 2.0 mmol/L Normal 0.2-2.0 [facility] ([place]) Comment on above: Performed By: #### D IFF, PHOS, CMP, MG, CBC, MORPH, A1C, GFR, LAC ####[place] [address] Lactic Acid Lvl 1.9 mmol/L Normal 0.2-2.0 [facility] ([place]) Comment on above: Order Comment: Order ed secondary to Lactic Acid result greater than or equal to 2.0 Performed By: #### L AC ####[place] [address] Lactic Acid Lvl 2.0 mmol/L Normal 0.2-2.0 [facility] ([place]) Comment on above: Performed By: #### C BC, MORPH, LAC, DIFF, PHOS, MG, GFR, CMP ####[place] [address] MGon 2024 Magnesium [Mass/Vol] 2.3 mg/dL Normal 1.6-2.4 [facility] ([place]) Comment on above: Performed By: #### L AC, PHOS, TROPHS, MG, BMP, GFR ####[place] [address] Magnesium [Mass/Vol] 1.6 mg/dL Normal 1.6-2.4 [facility] ([place]) Comment on above: Performed By: #### D IFF, PHOS, CMP, MG, CBC, MORPH, A1C, GFR, LAC ####[place] [address] Magnesium [Mass/Vol] 1.7 mg/dL Normal 1.6-2.4 [facility] ([place]) Comment on above: Performed By: #### C BC, MORPH, LAC, DIFF, PHOS, MG, GFR, CMP ####[place] [address] PHOSon 2024 Phosphate [Mass/Vol] 8.9 mg/dL High 2.4-5.1 [facility] ([place]) Comment on above: Result Comment: No te - New Reference Range in effect 20 Performed By: #### L AC, PHOS, TROPHS, MG, BMP, GFR ####[place] [address] Phosphate [Mass/Vol] 7.6 mg/dL High 2.4-5.1 [facility] ([place]) Comment on above: Result Comment: No te - New Reference Range in effect 20 Performed By: #### D IFF, PHOS, CMP, MG, CBC, MORPH, A1C, GFR, LAC ####[place] [address] Phosphate [Mass/Vol] 8.1 mg/dL High 2.4-5.1 [facility] ([place]) Comment on above: Result Comment: No te - New Reference Range in effect 20 Performed By: #### C BC, MORPH, LAC, DIFF, PHOS, MG, GFR, CMP ####[place] [address] RBC (Product)on 2024 RBC Product Ready RBC Ready for Pickup Normal [facility] ([place]) Comment on above: Performed By: #### R BCP ####[place] [address] TROPHSon 2024 High Sensitivity Troponin I 21 ng/L Normal 0-54 [facility] ([place]) Comment on above: Result Comment: High Sensitive Troponin I Reference Ranges:Female: 0-34 ng/LMale: 0-54 ng/LTesting performed on [employer] IM analyzer using direct chemiluminescent technology. Performed By: #### L AC, PHOS, TROPHS, MG, BMP, GFR ####[place] [address] VANCRon 2024 LDose Vancomycin: (random) See eMAR Normal [facility] ([place]) Comment on above: Performed By: #### V ANCR ####[place] [address] Vancomycin Lvl (random) 18.8 mcg/mL Normal [facility] ([place]) Comment on above: Performed By: #### V ANCR ####[place] [address] XR CHEST 1 VIEWon 2024 XR CHEST 1 VIEW Normal [facility] ([place]) XR CHEST 1 VIEW Normal [facility] ([place]) .Auto Diffon 04-16-2024 Basophil, Absolute 0.1 10 3/mcL Normal 0.0-0.3 [facility] ([place]) Comment on above: Performed By: #### C BC, ADIFF, GFR, MORPH, BMP, ANEU ####[address] [address] Basophils/100 WBC (Bld) 0.3 % Normal 0.0-2.5 [facility] ([place]) Comment on above: Performed By: #### C BC, ADIFF, GFR, MORPH, BMP, ANEU ####[address] [address] Eosinophil, Absolute 0.3 10 3/mcL Normal 0.0-0.7 [facility] ([place]) Comment on above: Performed By: #### C BC, ADIFF, GFR, MORPH, BMP, ANEU ####[address] [address] Eosinophils/100 WBC (Bld) 0.8 % Normal 0.0-6.0 [facility] ([place]) Comment on above: Performed By: #### C BC, ADIFF, GFR, MORPH, BMP, ANEU ####[address] [address] Lymphocyte, Absolute 1.1 10 3/mcL Normal 0.9-4.3 [facility] ([place]) Comment on above: Performed By: #### C BC, ADIFF, GFR, MORPH, BMP, ANEU ####[address] [address] Lymphocytes/100 WBC (Bld) 3.4 % Low 20.0-40.0 [facility] ([place]) Comment on above: Performed By: #### C BC, ADIFF, GFR, MORPH, BMP, ANEU ####[address] [address] Monocyte, Absolute 2.0 10 3/mcL High 0.1-1.4 [facility] ([place]) Comment on above: Performed By: #### C BC, ADIFF, GFR, MORPH, BMP, ANEU ####[address] [address] Monocytes/100 WBC (Bld) 6.5 % Normal 2.0-13.0 [facility] ([place]) Comment on above: Performed By: #### C BC, ADIFF, GFR, MORPH, BMP, ANEU ####[address] [address] Neutrophils/100 WBC (Bld) 89.0 % High 50.0-75.0 [facility] ([place]) Comment on above: Performed By: #### C BC, ADIFF, GFR, MORPH, BMP, ANEU ####[address] [address] .GFRon 04-16-2024 GFR 21 ml/min/1.73sqm Normal [facility] ([place]) Comment on above: Result Comment: GFR Population mean for , Non- Americans Ages 20-29 = 116 mL/min/1.73 sq.m. Ages 30-39 = 107 mL/min/1.73 sq.m. Ages 40-49 = 99 mL/min/1.73 sq.m. Ages 50-59 = 93 mL/min/1.73 sq.m. Ages 60-69 = 85 mL/min/1.73 sq.m. Ages 70+ = 75 mL/min/1.73 sq.m.Chronic Kidney Disease: Less than 60 mL/min/1.73 square metersEnd Stage Renal Disease: Less than 15 mL/min/1.73 square meters Performed By: #### C BC, ADIFF, GFR, MORPH, BMP, ANEU ####[address] [address] GFR Non- 17 ml/min/1.73sqm Normal [facility] ([place]) Comment on above: Result Comment: GFR Population mean for , Non- Americans Ages 20-29 = 116 mL/min/1.73 sq.m. Ages 30-39 = 107 mL/min/1.73 sq.m. Ages 40-49 = 99 mL/min/1.73 sq.m. Ages 50-59 = 93 mL/min/1.73 sq.m. Ages 60-69 = 85 mL/min/1.73 sq.m. Ages 70+ = 75 mL/min/1.73 sq.m.Chronic Kidney Disease: Less than 60 mL/min/1.73 square metersEnd Stage Renal Disease: Less than 15 mL/min/1.73 square meters Performed By: #### C BC, ADIFF, GFR, MORPH, BMP, ANEU ####[place] [address] GFR Non- 17 ml/min/1.73sqm Normal [facility] ([place]) Comment on above: Result Comment: GFR Population mean for , Non- Americans Ages 20-29 = 116 mL/min/1.73 sq.m. Ages 30-39 = 107 mL/min/1.73 sq.m. Ages 40-49 = 99 mL/min/1.73 sq.m. Ages 50-59 = 93 mL/min/1.73 sq.m. Ages 60-69 = 85 mL/min/1.73 sq.m. Ages 70+ = 75 mL/min/1.73 sq.m.Chronic Kidney Disease: Less than 60 mL/min/1.73 square metersEnd Stage Renal Disease: Less than 15 mL/min/1.73 square meters Performed By: #### P RO, TROPHS, BMP, MG, GFR, PHOS ####[place] [address] GFR 21 ml/min/1.73sqm Normal [facility] ([place]) Comment on above: Result Comment: GFR Population mean for , Non- Americans Ages 20-29 = 116 mL/min/1.73 sq.m. Ages 30-39 = 107 mL/min/1.73 sq.m. Ages 40-49 = 99 mL/min/1.73 sq.m. Ages 50-59 = 93 mL/min/1.73 sq.m. Ages 60-69 = 85 mL/min/1.73 sq.m. Ages 70+ = 75 mL/min/1.73 sq.m.Chronic Kidney Disease: Less than 60 mL/min/1.73 square metersEnd Stage Renal Disease: Less than 15 mL/min/1.73 square meters Performed By: #### P RO, TROPHS, BMP, MG, GFR, PHOS ####[place] [address] GFR 21 ml/min/1.73sqm Normal [facility] ([place]) Comment on above: Result Comment: GFR Population mean for , Non- Americans Ages 20-29 = 116 mL/min/1.73 sq.m. Ages 30-39 = 107 mL/min/1.73 sq.m. Ages 40-49 = 99 mL/min/1.73 sq.m. Ages 50-59 = 93 mL/min/1.73 sq.m. Ages 60-69 = 85 mL/min/1.73 sq.m. Ages 70+ = 75 mL/min/1.73 sq.m.Chronic Kidney Disease: Less than 60 mL/min/1.73 square metersEnd Stage Renal Disease: Less than 15 mL/min/1.73 square meters Performed By: #### R FP, GFR ####[place] [address] GFR Non- 17 ml/min/1.73sqm Normal [facility] ([place]) Comment on above: Result Comment: GFR Population mean for , Non- Americans Ages 20-29 = 116 mL/min/1.73 sq.m. Ages 30-39 = 107 mL/min/1.73 sq.m. Ages 40-49 = 99 mL/min/1.73 sq.m. Ages 50-59 = 93 mL/min/1.73 sq.m. Ages 60-69 = 85 mL/min/1.73 sq.m. Ages 70+ = 75 mL/min/1.73 sq.m.Chronic Kidney Disease: Less than 60 mL/min/1.73 square metersEnd Stage Renal Disease: Less than 15 mL/min/1.73 square meters Performed By: #### R FP, GFR ####[place] [address] .Manual Diffon 04-16-2024 Bands 1.0 % Normal 0.0-5.0 [facility] ([place]) Comment on above: Performed By: #### C AION, LAC, MORPH, DIFF, K, MG, CK, CBC, HFP ####[address] [address] Basophil %, Manual 0.0 % Normal 0.0-2.5 [facility] ([place]) Comment on above: Performed By: #### C AION, LAC, MORPH, DIFF, K, MG, CK, CBC, HFP ####[place] [address] Basophil, Abs Manual 0.0 10 3/mcL Normal 0.0-0.3 [facility] ([place]) Comment on above: Performed By: #### C AION, LAC, MORPH, DIFF, K, MG, CK, CBC, HFP ####[place] [address] Eosinophil %, Manual 0.0 % Normal 0.0-6.0 [facility] ([place]) Comment on above: Performed By: #### C AION, LAC, MORPH, DIFF, K, MG, CK, CBC, HFP ####[place] [address] Eosinophil, Abs Manual 0.0 10 3/mcL Normal 0.0-0.7 [facility] ([place]) Comment on above: Performed By: #### C AION, LAC, MORPH, DIFF, K, MG, CK, CBC, HFP ####[place] [address] Lymphocyte %, Manual 4.0 % Low 20.0-40.0 [facility] ([place]) Comment on above: Performed By: #### C AION, LAC, MORPH, DIFF, K, MG, CK, CBC, HFP ####[place] [address] Lymphocyte, Abs Manual 1.8 10 3/mcL Normal 0.9-4.3 [facility] ([place]) Comment on above: Performed By: #### C AION, LAC, MORPH, DIFF, K, MG, CK, CBC, HFP ####[place] [address] Metamyelocyte 1.0 % Normal [facility] ([place]) Comment on above: Performed By: #### C AION, LAC, MORPH, DIFF, K, MG, CK, CBC, HFP ####[place] [address] Monocyte %, Manual 10.0 % Normal 2.0-13.0 [facility] ([place]) Comment on above: Performed By: #### C AION, LAC, MORPH, DIFF, K, MG, CK, CBC, HFP ####[place] [address] Monocyte, Abs Manual 4.5 10 3/mcL High 0.1-1.4 [facility] ([place]) Comment on above: Performed By: #### C AION, LAC, MORPH, DIFF, K, MG, CK, CBC, HFP ####[place] [address] Neutrophil %, Manual 84.0 % High 50.0-75.0 [facility] ([place]) Comment on above: Performed By: #### C AION, LAC, MORPH, DIFF, K, MG, CK, CBC, HFP ####[place] [address] Neutrophil, Abs Manual 38.0 10 3/mcL High 2.3-8.1 [facility] ([place]) Comment on above: Performed By: #### C AION, LAC, MORPH, DIFF, K, MG, CK, CBC, HFP ####[place] [address] Nucleated RBC 0.0 /100 WBC Normal [facility] ([place]) Comment on above: Performed By: #### C AION, LAC, MORPH, DIFF, K, MG, CK, CBC, HFP ####[place] [address] .Morphon 04-16-2024 Anisocytosis Ql (Bld) 1+ Normal [facility] ([place]) Comment on above: Performed By: #### C BC, ADIFF, GFR, MORPH, BMP, ANEU ####[place] [address] Hypochrom 1+ Normal [facility] ([place]) Comment on above: Performed By: #### C BC, ADIFF, GFR, MORPH, BMP, ANEU ####[address] [address] Microcytosis 1+ Normal [facility] ([place]) Comment on above: Performed By: #### C BC, ADIFF, GFR, MORPH, BMP, ANEU ####[address] [address] Platelet Estimate Normal [facility] ([place]) Comment on above: Performed By: #### C BC, ADIFF, GFR, MORPH, BMP, ANEU ####[address] [address] Toxic Gran 1+ Normal [facility] ([place]) Comment on above: Performed By: #### C BC, ADIFF, GFR, MORPH, BMP, ANEU ####[place] [address] Anisocytosis Ql (Bld) 1+ Normal [facility] ([place]) Comment on above: Performed By: #### C AION, LAC, MORPH, DIFF, K, MG, CK, CBC, HFP ####[address] [address] Large Platelets Few Normal [facility] ([place]) Comment on above: Performed By: #### C AION, LAC, MORPH, DIFF, K, MG, CK, CBC, HFP ####[place] [address] Microcytosis 1+ Normal [facility] ([place]) Comment on above: Performed By: #### C AION, LAC, MORPH, DIFF, K, MG, CK, CBC, HFP ####[address] [address] Ovalocytes 1+ Normal [facility] ([place]) Comment on above: Performed By: #### C AION, LAC, MORPH, DIFF, K, MG, CK, CBC, HFP ####[place] [address] Platelet Estimate Normal [facility] ([place]) Comment on above: Performed By: #### C AION, LAC, MORPH, DIFF, K, MG, CK, CBC, HFP ####[facility] [place] [address] Poik 1+ Normal [facility] ([place]) Comment on above: Performed By: #### C AION, LAC, MORPH, DIFF, K, MG, CK, CBC, HFP ####[facility] [place] [address] .NEUABSon 04-16-2024 Neutrophil, Absolute 28.0 10 3/mcL High 2.3-8.1 [facility] ([place]) Comment on above: Performed By: #### C BC, ADIFF, GFR, MORPH, BMP, ANEU ####[facility] [place] [address] AMPICILLIN+SULBACTAM:SUSC:PT :ISOLATE:ORDQN:MICon 04-16-2024 Ampicillin+Sulbactam MARTI [Susc] Light Group B Beta Hemolytic Strep (Strep agalactiae) Light Serratia marcescens Light Staphylococcus epidermidis This staphylococci does not demonstrate inducible clindamycin resistance in vitro. Moderate Lactobacillus gasseri Sensitivity testing is not recommended for one of the following reasons: 1. Established susceptibility patterns are available or 2. Interpretative criteria are not available. Light Enterococcus faecalis No anaerobes isolated at 5 days. Neisseria gonorrhoeae: Negative Ureaplasma urealyticum: Negative [facility] Work Phone: Serratia marcescens Serratia marcescens [facility] Work Phone: Ampicillin+Sulbactam MARTI [Berry sc]on 04-16-2024 Enterococcus faecalis Enterococcus faecalis [facility] Work Phone: Group B Beta Hemolytic Strep (Strep agalactiae) Group B Beta Hemolytic Strep (Strep agalactiae) [facility] Work Phone: GS 3+ Mononuclear cells 4+ Gram Positive Cocci 2+ Gram Positive Rods Rare Epithelial cells 2+ Polymorphonuclear cells [facility] Work Phone: Lactobacillus gasseri Lactobacillus gasseri [facility] Work Phone: Staphylococcus epidermidis Staphylococcus epidermidis [facility] Work Phone: on 04-16-2024 Base excess Calc (Bld) [Moles/Vol] -8.9000 mmol/L Normal [facility] ([place]) Comment on above: Performed By: #### Marco G ####[address] [address] CO2 [Moles/Vol] 17.6 mmol/L Low 22.0-30.0 [facility] ([place]) Comment on above: Performed By: #### Marco G ####[address] [address] HCO3 (Bld) [Moles/Vol] 16.5 mmol/L Low 21.0-29.0 [facility] ([place]) Comment on above: Performed By: #### Marco G ####[address] [address] Oxygen (Bld) [Partial pressure] 110.9 mm[Hg] High 74.0-108.0 [facility] ([place]) Comment on above: Performed By: #### Marco G ####[address] [address] Oxygen saturation in Blood 98.9 % High 92.0-96.0 [facility] ([place]) Comment on above: Performed By: #### B G ####[address] [address] pCO2 33.7 mmHg Normal 32.0-46.0 [facility] ([place]) Comment on above: Performed By: #### Marco G ####[address] [address] pH (Bld) 7.309 [pH] Low 7.380-7.46 0 [facility] ([place]) Comment on above: Performed By: #### Marco G ####[address] [address] Base excess Calc (Bld) [Moles/Vol] -10.37393 mmol/L Normal [facility] ([place]) Comment on above: Performed By: #### Marco G ####[address] [address] CO2 [Moles/Vol] 16.3 mmol/L Low 22.0-30.0 [facility] ([place]) Comment on above: Performed By: #### B G ####[address] [address] HCO3 (Bld) [Moles/Vol] 15.3 mmol/L Low 21.0-29.0 [facility] ([place]) Comment on above: Performed By: #### B G ####[address] [address] Oxygen (Bld) [Partial pressure] 137.0 mm[Hg] High 74.0-108.0 [facility] ([place]) Comment on above: Performed By: #### B G ####[place] [id number] Oxygen saturation in Blood 99.7 % High 92.0-96.0 [facility] ([place]) Comment on above: Performed By: #### B G ####[address] [address] pCO2 33.0 mmHg Normal 32.0-46.0 [facility] ([place]) Comment on above: Performed By: #### B G ####[place] [id number] pH (Bld) 7.284 [pH] Low 7.380-7.46 0 [facility] ([place]) Comment on above: Performed By: #### B G ####[place] [id number] Base excess Calc (Bld) [Moles/Vol] -14.92913 mmol/L Normal [facility] ([place]) Comment on above: Order Comment: vrb- called critical pH to CELSO Raman 04/16/2024 04:27:43 EDT SAS Performed By: #### B G ####[address] [address] CO2 [Moles/Vol] 16.3 mmol/L Low 22.0-30.0 [facility] ([place]) Comment on above: Order Comment: vrb- called critical pH to CELSO Raman 04/16/2024 04:27:43 EDT SAS Performed By: #### B G ####[address] [address] HCO3 (Bld) [Moles/Vol] 14.8 mmol/L Low 21.0-29.0 [facility] ([place]) Comment on above: Order Comment: vrb- called critical pH to CELSO Raman 04/16/2024 04:27:43 EDT SAS Performed By: #### B G ####[place] [id number] Oxygen (Bld) [Partial pressure] 86.3 mm[Hg] Normal 74.0-108.0 [facility] ([place]) Comment on above: Order Comment: vrb- called critical pH to CELSO Raman 04/16/2024 04:27:43 EDT SAS Performed By: #### B G ####[place] [address] Oxygen saturation in Blood 95.4 % Normal 92.0-96.0 [facility] ([place]) Comment on above: Order Comment: vrb- called critical pH to CELSO Raman 04/16/2024 04:27:43 EDT [facility] Performed By: #### B G ####[place] [address] pCO2 48.6 mmHg High 32.0-46.0 [facility] ([place]) Comment on above: Order Comment: vrb- called critical pH to CELSO aRman 04/16/2024 04:27:43 EDT [facility] Performed By: #### B G ####[address] [address] pH (Bld) 7.102 [pH] Critically abnormal 7.380-7.46 0 [facility] ([place]) Comment on above: Order Comment: vrb- called critical pH to CELSO Raman 04/16/2024 04:27:43 EDT [facility] Performed By: #### B G ####[address] [address] Base excess Calc (Bld) [Moles/Vol] -15.16645 mmol/L Normal [facility] ([place]) Comment on above: Performed By: #### B G ####[place] [address] CO2 [Moles/Vol] 13.1 mmol/L Low 22.0-30.0 [facility] ([place]) Comment on above: Performed By: #### B G ####[place] [id number] HCO3 (Bld) [Moles/Vol] 12.1 mmol/L Low 21.0-29.0 [facility] ([place]) Comment on above: Performed By: #### B G ####[place] [phone] Oxygen (Bld) [Partial pressure] 124.7 mm[Hg] High 74.0-108.0 [facility] ([place]) Comment on above: Performed By: #### B G ####[place] [address] Oxygen saturation in Blood 98.9 % High 92.0-96.0 [facility] ([place]) Comment on above: Performed By: #### B G ####[place] [address] pCO2 33.1 mmHg Normal 32.0-46.0 [facility] ([place]) Comment on above: Performed By: #### B G ####[place] [address] pH (Bld) 7.182 [pH] Critically abnormal 7.380-7.46 0 [facility] ([place]) Comment on above: Performed By: #### B G ####[place] [id number] BMPon 04-16-2024 BUN/Creatinine Ratio 20.5 ratio Normal 10.0-22.0 [facility] ([place]) Comment on above: Performed By: #### C BC, ADIFF, GFR, MORPH, BMP, ANEU ####[place] [address] Calcium [Mass/Vol] 8.3 mg/dL Low 8.7-10.4 [facility] ([place]) Comment on above: Performed By: #### C BC, ADIFF, GFR, MORPH, BMP, ANEU ####[address] [address] Chloride [Moles/Vol] 107 mmol/L Normal 98-110 [facility] ([place]) Comment on above: Performed By: #### C BC, ADIFF, GFR, MORPH, BMP, ANEU ####[address] [address] CO2 [Moles/Vol] 19 mmol/L Low 22-32 [facility] ([place]) Comment on above: Performed By: #### C BC, ADIFF, GFR, MORPH, BMP, ANEU ####[address] [address] Creatinine [Mass/Vol] 3.86 mg/dL High 0.60-1.40 [facility] ([place]) Comment on above: Performed By: #### C BC, ADIFF, GFR, MORPH, BMP, ANEU ####[address] [address] Electrolyte Balance 8.0 mEq/L Normal 4.0-15.0 [facility] ([place]) Comment on above: Performed By: #### C BC, ADIFF, GFR, MORPH, BMP, ANEU ####[address] [address] Glucose [Mass/Vol] 337 mg/dL High 70-110 [facility] ([place]) Comment on above: Performed By: #### C BC, ADIFF, GFR, MORPH, BMP, ANEU ####[address] [address] Potassium [Moles/Vol] 5.0 mmol/L Normal 3.5-5.0 [facility] ([place]) Comment on above: Performed By: #### C BC, ADIFF, GFR, MORPH, BMP, ANEU ####[address] [address] Sodium [Moles/Vol] 134 mmol/L Low 136-145 [facility] ([place]) Comment on above: Performed By: #### C BC, ADIFF, GFR, MORPH, BMP, ANEU ####[address] [address] Urea nitrogen [Mass/Vol] 79.0 mg/dL High 8.0-22.0 [facility] ([place]) Comment on above: Performed By: #### C BC, ADIFF, GFR, MORPH, BMP, ANEU ####[place] [phone] BUN/Creatinine Ratio 20.7 ratio Normal 10.0-22.0 [facility] ([place]) Comment on above: Performed By: #### P RO, TROPHS, BMP, MG, GFR, PHOS ####[address] [address] Calcium [Mass/Vol] 8.8 mg/dL Normal 8.7-10.4 [facility] ([place]) Comment on above: Performed By: #### P RO, TROPHS, BMP, MG, GFR, PHOS ####[place] [address] Chloride [Moles/Vol] 107 mmol/L Normal 98-110 [facility] ([place]) Comment on above: Performed By: #### P RO, TROPHS, BMP, MG, GFR, PHOS ####[place] [phone] CO2 [Moles/Vol] 19 mmol/L Low 22-32 [facility] ([place]) Comment on above: Performed By: #### P RO, TROPHS, BMP, MG, GFR, PHOS ####[address] [address] Creatinine [Mass/Vol] 3.82 mg/dL High 0.60-1.40 [facility] ([place]) Comment on above: Performed By: #### P RO, TROPHS, BMP, MG, GFR, PHOS ####[address] [address] Electrolyte Balance 8.0 mEq/L Normal 4.0-15.0 [facility] ([place]) Comment on above: Performed By: #### P RO, TROPHS, BMP, MG, GFR, PHOS ####[place] [address] Glucose [Mass/Vol] 421 mg/dL Critically abnormal 70-110 [facility] ([place]) Comment on above: Performed By: #### P RO, TROPHS, BMP, MG, GFR, PHOS ####[place] [address] Potassium [Moles/Vol] 6.3 mmol/L Critically abnormal 3.5-5.0 [facility] ([place]) Comment on above: Performed By: #### P RO, TROPHS, BMP, MG, GFR, PHOS ####[place] [address] Sodium [Moles/Vol] 134 mmol/L Low 136-145 [facility] ([place]) Comment on above: Performed By: #### P RO, TROPHS, BMP, MG, GFR, PHOS ####[place] [address] Urea nitrogen [Mass/Vol] 79.0 mg/dL High 8.0-22.0 [facility] ([place]) Comment on above: Performed By: #### P RO, TROPHS, BMP, MG, GFR, PHOS ####[place] [address] CAIONon 04-16-2024 Calcium Ionized 1.12 mmol/L Normal 1.12-1.32 [facility] ([place]) Comment on above: Performed By: #### C AION, LAC, MORPH, DIFF, K, MG, CK, CBC, HFP ####[place] [address] CBCon 04-16-2024 Erythrocyte distribution width (RBC) [Ratio] 16.3 % High 11.5-15.5 [facility] ([place]) Comment on above: Performed By: #### C BC, ADIFF, GFR, MORPH, BMP, ANEU ####[place] [address] Hematocrit (Bld) [Volume fraction] 22.2 % Low 40.0-52.0 [facility] ([place]) Comment on above: Performed By: #### C BC, ADIFF, GFR, MORPH, BMP, ANEU ####[place] [address] Hgb 7.0 G/dL Low 13.0-17.5 [facility] ([place]) Comment on above: Performed By: #### C BC, ADIFF, GFR, MORPH, BMP, ANEU ####[place] [address] MCH (RBC) [Entitic mass] 24.6 pg Low 27.0-33.0 [facility] ([place]) Comment on above: Performed By: #### C BC, ADIFF, GFR, MORPH, BMP, ANEU ####[place] [address] MCHC 31.8 G/dL Low 32.0-36.0 [facility] ([place]) Comment on above: Performed By: #### C BC, ADIFF, GFR, MORPH, BMP, ANEU ####[place] [address] MCV (RBC) [Entitic vol] 77.3 fL Low 81.0-100.0 [facility] ([place]) Comment on above: Performed By: #### C BC, ADIFF, GFR, MORPH, BMP, ANEU ####[place] [address] Platelet 445 10 3/mcL Normal 150-450 [facility] ([place]) Comment on above: Performed By: #### C BC, ADIFF, GFR, MORPH, BMP, ANEU ####[place] [address] Platelet mean volume (Bld) [Entitic vol] 8.5 fL Normal 6.4-10.5 [facility] ([place]) Comment on above: Performed By: #### C BC, ADIFF, GFR, MORPH, BMP, ANEU ####[place] [address] RBC 2.86 10 6/mcL Low 4.50-6.00 [facility] ([place]) Comment on above: Performed By: #### C BC, ADIFF, GFR, MORPH, BMP, ANEU ####[place] [address] WBC 31.4 10 3/mcL High 4.5-10.8 [facility] ([place]) Comment on above: Performed By: #### C BC, ADIFF, GFR, MORPH, BMP, ANEU ####[place] [address] Erythrocyte distribution width (RBC) [Ratio] 16.5 % High 11.5-15.5 [facility] ([place]) Comment on above: Performed By: #### C AION, LAC, MORPH, DIFF, K, MG, CK, CBC, HFP ####[place] [address] Hematocrit (Bld) [Volume fraction] 24.4 % Low 40.0-52.0 [facility] ([place]) Comment on above: Performed By: #### C AION, LAC, MORPH, DIFF, K, MG, CK, CBC, HFP ####[place] [address] Hgb 7.5 G/dL Low 13.0-17.5 [facility] ([place]) Comment on above: Performed By: #### C AION, LAC, MORPH, DIFF, K, MG, CK, CBC, HFP ####[place] [address] MCH (RBC) [Entitic mass] 24.2 pg Low 27.0-33.0 [facility] ([place]) Comment on above: Performed By: #### C AION, LAC, MORPH, DIFF, K, MG, CK, CBC, HFP ####[place] [address] MCHC 30.8 G/dL Low 32.0-36.0 [facility] ([place]) Comment on above: Performed By: #### C AION, LAC, MORPH, DIFF, K, MG, CK, CBC, HFP ####[place] [address] MCV (RBC) [Entitic vol] 78.7 fL Low 81.0-100.0 [facility] ([place]) Comment on above: Performed By: #### C AION, LAC, MORPH, DIFF, K, MG, CK, CBC, HFP ####[address] [id number] Platelet 485 10 3/mcL High 150-450 [facility] ([place]) Comment on above: Performed By: #### C AION, LAC, MORPH, DIFF, K, MG, CK, CBC, HFP ####[place] [address] Platelet mean volume (Bld) [Entitic vol] 8.5 fL Normal 6.4-10.5 [facility] ([place]) Comment on above: Performed By: #### C AION, LAC, MORPH, DIFF, K, MG, CK, CBC, HFP ####[address] [address] RBC 3.10 10 6/mcL Low 4.50-6.00 [facility] ([place]) Comment on above: Performed By: #### C AION, LAC, MORPH, DIFF, K, MG, CK, CBC, HFP ####[address] [address] WBC 44.8 10 3/mcL High 4.5-10.8 [facility] ([place]) Comment on above: Performed By: #### C AION, LAC, MORPH, DIFF, K, MG, CK, CBC, HFP ####[place] [address] CKon 04-16-2024 CK [Catalytic activity/Vol] 48 U/L Normal 7-185 [facility] ([place]) Comment on above: Performed By: #### C AION, LAC, MORPH, DIFF, K, MG, CK, CBC, HFP ####[place] [address] HFPon 04-16-2024 Bili Indirect Unable to Calculate Normal 0.1-10.0 [facility] ([place]) Comment on above: Result Comment: Unab le to calculate this test result accurately. Results used to calculate this test are outside the reportable range. Performed By: #### C AION, LAC, MORPH, DIFF, K, MG, CK, CBC, HFP ####[place] [address] Albumin Level 1.2 G/dL Low 3.2-4.8 [facility] ([place]) Comment on above: Performed By: #### C AION, LAC, MORPH, DIFF, K, MG, CK, CBC, HFP ####[place] [address] Albumin/Globulin [Mass ratio] 0.3 {ratio} Low 0.9-1.6 [facility] ([place]) Comment on above: Performed By: #### C AION, LAC, MORPH, DIFF, K, MG, CK, CBC, HFP ####[place] [address] ALP [Catalytic activity/Vol] 190 U/L High 38-126 [facility] ([place]) Comment on above: Performed By: #### C AION, LAC, MORPH, DIFF, K, MG, CK, CBC, HFP ####[place] [address] ALT [Catalytic activity/Vol] 13 U/L Normal 12-55 [facility] ([place]) Comment on above: Performed By: #### C AION, LAC, MORPH, DIFF, K, MG, CK, CBC, HFP ####[place] [address] AST [Catalytic activity/Vol] 17 U/L Normal 8-34 [facility] ([place]) Comment on above: Performed By: #### C AION, LAC, MORPH, DIFF, K, MG, CK, CBC, HFP ####[place] [address] Bili Direct 0.1 mg/dL Normal 0.0-0.4 [facility] ([place]) Comment on above: Result Comment: Use of this assay is not recommended for patients undergoing treatment with eltrombopag due to the potential for falsely elevated results. Performed By: #### C AION, LAC, MORPH, DIFF, K, MG, CK, CBC, HFP ####[place] [address] Bili Total <0.20 Normal 0.20-1.20 [facility] ([place]) Comment on above: Result Comment: Use of this assay is not recommended for patients undergoing treatment with eltrombopag due to the potential for falsely elevated results. Performed By: #### C AION, LAC, MORPH, DIFF, K, MG, CK, CBC, HFP ####[place] [address] Globulin 4.7 G/dL High 1.5-3.8 [facility] ([place]) Comment on above: Performed By: #### C AION, LAC, MORPH, DIFF, K, MG, CK, CBC, HFP ####[place] [address] Total Protein 5.9 G/dL Normal 5.7-8.2 [facility] ([place]) Comment on above: Result Comment: No te - New Reference Range in effect 20 Performed By: #### C AION, LAC, MORPH, DIFF, K, MG, CK, CBC, HFP ####[place] [address] HHon 04-16-2024 Hematocrit (Bld) [Volume fraction] 22.8 % Low 40.0-52.0 [facility] ([place]) Comment on above: Performed By: #### H H, K ####[place] [address] Hgb 7.2 G/dL Low 13.0-17.5 [facility] ([place]) Comment on above: Performed By: #### H H, K ####[place] [address] Rainer 04-16-2024 Potassium [Moles/Vol] 4.8 mmol/L Normal 3.5-5.0 [facility] ([place]) Comment on above: Performed By: #### H H, K ####[place] [address] Potassium [Moles/Vol] 5.8 mmol/L High 3.5-5.0 [facility] ([place]) Comment on above: Performed By: #### K ####[address] [address] Potassium [Moles/Vol] 7.1 mmol/L Critically abnormal 3.5-5.0 [facility] ([place]) Comment on above: Performed By: #### C AION, LAC, MORPH, DIFF, K, MG, CK, CBC, HFP ####[place] [address] LABORATORYOrdered By: SYSTEM SYSTEM on 04-16-2024 Bili Indirect Unable to Calculate Invalid Interpretation Code 0.1 - 10.0 Chemistry S Comment on above: Result Comment: Unab le to calculate this test result accurately. Results used to calculate this test are outside the reportable range. Bilirubin.conjugated [Mass/Vol] 0.1 mg/dL Normal 0.0 - 0.4 mg/dL ADM SS Comment on above: Interpretive Data: U se of this assay is not recommended for patients undergoing treatment with eltrombopag due to the potential for falsely elevated results. CK [Catalytic activity/Vol] 48 U/L Normal 7 - 185 U/L ADM SS Poikilocytosis LM Ql (Bld) 1+ *NA* (04/16/24 1:52 AM) Invalid Interpretation Code Workflow SS LACon 04-16-2024 Lactic Acid Lvl 1.8 mmol/L Normal 0.2-2.0 [facility] ([place]) Comment on above: Performed By: #### L AC ####[place] [address] Lactic Acid Lvl 1.2 mmol/L Normal 0.2-2.0 [facility] ([place]) Comment on above: Performed By: #### L AC ####[address] [address] Lactic Acid Lvl 1.3 mmol/L Normal 0.2-2.0 [facility] ([place]) Comment on above: Performed By: #### L AC ####[place] [address] Lactic Acid Lvl 1.3 mmol/L Normal 0.2-2.0 [facility] ([place]) Comment on above: Performed By: #### C AION, LAC, MORPH, DIFF, K, MG, CK, CBC, HFP ####[address] [address] MGon 04-16-2024 Magnesium [Mass/Vol] 1.8 mg/dL Normal 1.6-2.4 [facility] ([place]) Comment on above: Performed By: #### P RO, TROPHS, BMP, MG, GFR, PHOS ####[address] [address] Magnesium [Mass/Vol] 1.9 mg/dL Normal 1.6-2.4 [facility] ([place]) Comment on above: Performed By: #### C AION, LAC, MORPH, DIFF, K, MG, CK, CBC, HFP ####[address] [address] No Panel Informationon 04-16 Culture Urine No growth at [address] [facility] Work Phone: Culture Wound Deep Panel Light Group B Beta Hemolytic Strep (Strep agalactiae) Sensitivity testing is not recommended for one of the following reasons: 1. Established susceptibility patterns are available or 2. Interpretative criteria are not available. Light Serratia marcescens Refer to previous culture for susceptibility. [id number] Moderate Normal skin adela present. Sensitivity testing not indicated. No anaerobes isolated at 5 days. Neisseria gonorrhoeae: Negative Ureaplasma urealyticum: Negative [facility] Work Phone: GS 2+ Gram Positive Luis Angel s 1+ Gram Positive Cocci Rare Mononuclear cells [facility] Work Phone: PHOSon 04-16-2024 Phosphate [Mass/Vol] 8.7 mg/dL High 2.4-5.1 [facility] ([place]) Comment on above: Result Comment: No te - New Reference Range in effect 20 Performed By: #### P RO, TROPHS, BMP, MG, GFR, PHOS ####[address] [address] PROon 04-16-2024 INR Coag (PPP) [Relative time] 1.4 {INR} Normal [facility] ([place]) Comment on above: Result Comment: [employer] (CHEST, 1992, 102:[id number])recommended therapeutic range for oral anticoagulant therapy is:LOW RISK: Prophylaxis of venous thrombosis INR: 2.0-3.0 Treatment of pulmonary embolism 2.0-3.0 Prevention of systemic embolism 2.0-3.0HIGH RISK: Mechanical prosthetic valves 2.5-3.5 Performed By: #### P RO, TROPHS, BMP, MG, GFR, PHOS ####[address] [address] PT Coag (PPP) [Time] 15.8 s High 9.0-14.4 [facility] ([place]) Comment on above: Result Comment: Effe ctive 06/02/08, Protime results may be affected by some antibiotics (i.e. Ciprofloxacin, Azithromycin, Bactrim) which may potentiate the action of oral anticoagulants, with further increases in Protime/INR. Performed By: #### P RO, TROPHS, BMP, MG, GFR, PHOS ####[address] [address] RFPon 04-16-2024 Albumin Level 1.7 G/dL Low 3.2-4.8 [facility] ([place]) Comment on above: Order Comment: pleas e use previously drawn labs Performed By: #### R FP, GFR ####[address] [address] BUN/Creatinine Ratio 20.8 ratio Normal 10.0-22.0 [facility] ([place]) Comment on above: Order Comment: pleas e use previously drawn labs Performed By: #### R FP, GFR ####[address] [address] Calcium [Mass/Vol] 8.3 mg/dL Low 8.7-10.4 [facility] ([place]) Comment on above: Order Comment: pleas e use previously drawn labs Performed By: #### R FP, GFR ####[address] [address] Chloride [Moles/Vol] 107 mmol/L Normal 98-110 [facility] ([place]) Comment on above: Order Comment: pleas e use previously drawn labs Performed By: #### R FP, GFR ####[address] [address] CO2 [Moles/Vol] 16 mmol/L Low 22-32 [facility] ([place]) Comment on above: Order Comment: pleas e use previously drawn labs Performed By: #### R FP, GFR ####[address] [address] Creatinine [Mass/Vol] 3.79 mg/dL High 0.60-1.40 [facility] ([place]) Comment on above: Order Comment: pleas e use previously drawn labs Performed By: #### R FP, GFR ####[address] [address] Electrolyte Balance 10.0 mEq/L Normal 4.0-15.0 [facility] ([place]) Comment on above: Order Comment: pleas e use previously drawn labs Performed By: #### R FP, GFR ####[address] [address] Glucose [Mass/Vol] 354 mg/dL High 70-110 [facility] ([place]) Comment on above: Order Comment: pleas e use previously drawn labs Performed By: #### R FP, GFR ####[address] [address] Phosphate [Mass/Vol] 8.8 mg/dL High 2.4-5.1 [facility] ([place]) Comment on above: Order Comment: pleas e use previously drawn labs Result Comment: No te - New Reference Range in effect 20 Performed By: #### R FP, GFR ####[address] [address] Potassium [Moles/Vol] 6.8 mmol/L Critically abnormal 3.5-5.0 [facility] ([place]) Comment on above: Order Comment: pleas e use previously drawn labs Performed By: #### R FP, GFR ####[address] [address] Sodium [Moles/Vol] 133 mmol/L Low 136-145 [facility] ([place]) Comment on above: Order Comment: pleas e use previously drawn labs Performed By: #### R FP, GFR ####[place] [address] Urea nitrogen [Mass/Vol] 79.0 mg/dL High 8.0-22.0 [facility] ([place]) Comment on above: Order Comment: pleas e use previously drawn labs Performed By: #### R FP, GFR ####[place] [address] TROPHSon 04-16-2024 High Sensitivity Troponin I 6 ng/L Normal 0-54 [facility] ([place]) Comment on above: Result Comment: High Sensitive Troponin I Reference Ranges:Female: 0-34 ng/LMale: 0-54 ng/LTesting performed on [employer] IM analyzer using direct chemiluminescent technology. Performed By: #### P RO, TROPHS, BMP, MG, GFR, PHOS ####[place] [address] VANCRon 04-16-2024 LDose Vancomycin: (random) See eMAR Normal [facility] ([place]) Comment on above: Performed By: #### V ANCR ####[place] [address] Vancomycin Lvl (random) 16.5 mcg/mL Normal [facility] ([place]) Comment on above: Performed By: #### V ANCR ####[place] [address] XR CHEST 1 VIEWon 04-16-2024 XR CHEST 1 VIEW Normal Pending sale to [facility]) XR CHEST 1 VIEW Normal Pending sale to [facility]) XR CHEST 1 VIEW Normal [facility] ([place]) XR ENTERIC TUBE PLACEMENTon 04-16-2024 XR ENTERIC TUBE PLACEMENT Normal Pending sale to [facility]) .Auto Diffon 04-15-2024 Basophil, Absolute 0.1 10 3/mcL Normal 0.0-0.2 [facility]) Comment on above: Performed By: #### M ORPH, CMP, PHV, MDW, CBC, GFR, ADIFF, ANEU, PRO, LAC, DOMITILA, DIFF ####[place] [address] [place], [place] [address] Basophils/100 WBC (Bld) 0.2 % Normal 0.0-2.5 [facility] ([place]) Comment on above: Performed By: #### M ORPH, CMP, PHV, MDW, CBC, GFR, ADIFF, ANEU, PRO, LAC, DOMITILA, DIFF ####[place] [address] [place], [place] [address] Eosinophil, Absolute 0.2 10 3/mcL Normal 0.0-0.4 [facility] ([place]) Comment on above: Performed By: #### M ORPH, CMP, PHV, MDW, CBC, GFR, ADIFF, ANEU, PRO, LAC, DOMITILA, DIFF ####[place] [address] [place], [place] [address] Eosinophils/100 WBC (Bld) 0.5 % Normal 0.0-7.0 [facility] ([place]) Comment on above: Performed By: #### M ORPH, CMP, PHV, MDW, CBC, GFR, ADIFF, ANEU, PRO, LAC, DOMITILA, DIFF ####[place] [address] [place], [place] [address] Lymphocyte, Absolute 1.9 10 3/mcL Normal 0.8-3.9 [facility] ([place]) Comment on above: Performed By: #### M ORPH, CMP, PHV, MDW, CBC, GFR, ADIFF, ANEU, PRO, LAC, DOMITILA, DIFF ####[place] [address] [place], [place] [address] Lymphocytes/100 WBC (Bld) 4.0 % Low 10.0-50.0 [facility] ([place]) Comment on above: Performed By: #### M ORPH, CMP, PHV, MDW, CBC, GFR, ADIFF, ANEU, PRO, LAC, DOMITILA, DIFF ####[place] [address] [place], [place] [address] Monocyte, Absolute 2.7 10 3/mcL High 0.2-1.0 [facility] ([place]) Comment on above: Performed By: #### M ORPH, CMP, PHV, MDW, CBC, GFR, ADIFF, ANEU, PRO, LAC, DOMITILA, DIFF ####[place] [address] [place], [place] [address] Monocytes/100 WBC (Bld) 5.8 % Normal 1.7-13.0 [facility] ([place] Comment on above: Performed By: #### M ORPH, CMP, PHV, MDW, CBC, GFR, ADIFF, ANEU, PRO, LAC, DOMITILA, DIFF ####[place] [address] [place], [place] [address] Neutrophils/100 WBC (Bld) 89.5 % High 37.0-80.0 [facility] ([place]) Comment on above: Performed By: #### M ORPH, CMP, PHV, MDW, CBC, GFR, ADIFF, ANEU, PRO, LAC, DOMITILA, DIFF ####[place] [address] [place], [place] [address] .GFRon 04-15-2024 GFR Non- 13 ml/min/1.73sqm Normal [facility] ([place]) Comment on above: Result Comment: GFR Population mean for , Non- Americans Ages 20-29 = 116 mL/min/1.73 sq.m. Ages 30-39 = 107 mL/min/1.73 sq.m. Ages 40-49 = 99 mL/min/1.73 sq.m. Ages 50-59 = 93 mL/min/1.73 sq.m. Ages 60-69 = 85 mL/min/1.73 sq.m. Ages 70+ = 75 mL/min/1.73 sq.m.Chronic Kidney Disease: Less than 60 mL/min/1.73 square metersEnd Stage Renal Disease: Less than 15 mL/min/1.73 square meters Performed By: #### M ORPH, CMP, PHV, MDW, CBC, GFR, ADIFF, ANEU, PRO, LAC, DOMITILA, DIFF ####[place] [address] [place], [place] [address] GFR 15 ml/min/1.73sqm Normal [facility] ([place]) Comment on above: Result Comment: GFR Population mean for , Non- Americans Ages 20-29 = 116 mL/min/1.73 sq.m. Ages 30-39 = 107 mL/min/1.73 sq.m. Ages 40-49 = 99 mL/min/1.73 sq.m. Ages 50-59 = 93 mL/min/1.73 sq.m. Ages 60-69 = 85 mL/min/1.73 sq.m. Ages 70+ = 75 mL/min/1.73 sq.m.Chronic Kidney Disease: Less than 60 mL/min/1.73 square metersEnd Stage Renal Disease: Less than 15 mL/min/1.73 square meters Performed By: #### M ORPH, CMP, PHV, MDW, CBC, GFR, ADIFF, ANEU, PRO, LAC, DOMITILA, DIFF ####[place] [address] [place], [place] [address] .MDWon 04-15-2024 Monocyte Distribution Width 23.75 High 0.00-20.00 [facility] ([place]) Comment on above: Result Comment: For adults in ED, MDW>20.0 may be associated with a higher risk of sepsis during the first 12hrs of hospital admissionThe predictive value of MDW for identifying sepsis in patients with hematological abnormalities has not been established Performed By: #### M ORPH, CMP, PHV, MDW, CBC, GFR, ADIFF, ANEU, PRO, LAC, DOMITILA, DIFF ####[place] [address] [place], [place] [address] .Manual Diffon 04-15-2024 Bands 10.0 % High 0.0-5.0 [facility] ([place]) Comment on above: Performed By: #### M ORPH, CMP, PHV, MDW, CBC, GFR, ADIFF, ANEU, PRO, LAC, DOMITILA, DIFF ####[place] [address] [place], [place] [address] Basophil %, Manual 0.0 % Normal 0.0-2.5 [facility] ([place] Comment on above: Performed By: #### M ORPH, CMP, PHV, MDW, CBC, GFR, ADIFF, ANEU, PRO, LAC, DOMITILA, DIFF ####[place] [address] [place], [place] [address] Basophil, Abs Manual 0.0 10 3/mcL Normal 0.0-0.2 [facility] ([place]) Comment on above: Performed By: #### M ORPH, CMP, PHV, MDW, CBC, GFR, ADIFF, ANEU, PRO, LAC, DOMITILA, DIFF ####[place] [address] [place], [place] [address] Eosinophil %, Manual 0.0 % Normal 0.0-7.0 [facility] ([place]) Comment on above: Performed By: #### M ORPH, CMP, PHV, MDW, CBC, GFR, ADIFF, ANEU, PRO, LAC, DOMITILA, DIFF ####[place] [address] [place], [place] [address] Eosinophil, Abs Manual 0.0 10 3/mcL Normal 0.0-0.4 [facility] ([place]) Comment on above: Performed By: #### M ORPH, CMP, PHV, MDW, CBC, GFR, ADIFF, ANEU, PRO, LAC, DOMITILA, DIFF ####[place] [address] [place], [place] [address] Lymphocyte %, Manual 4.0 % Low 10.0-50.0 [facility] ([place]) Comment on above: Performed By: #### M ORPH, CMP, PHV, MDW, CBC, GFR, ADIFF, ANEU, PRO, LAC, DOMITILA, DIFF ####[place] [address] [place], [place] [address] Lymphocyte, Abs Manual 1.9 10 3/mcL Normal 0.8-3.9 [facility] ([place]) Comment on above: Performed By: #### M ORPH, CMP, PHV, MDW, CBC, GFR, ADIFF, ANEU, PRO, LAC, DOMITILA, DIFF ####[place] [address] [place], [place] [address] Monocyte %, Manual 2.0 % Normal 1.7-13.0 [facility] ([place] Comment on above: Performed By: #### M ORPH, CMP, PHV, MDW, CBC, GFR, ADIFF, ANEU, PRO, LAC, DOMITILA, DIFF ####[place] [address] [place], [place] [address] Monocyte, Abs Manual 0.9 10 3/mcL Normal 0.2-1.0 [facility] ([place] Comment on above: Performed By: #### M ORPH, CMP, PHV, MDW, CBC, GFR, ADIFF, ANEU, PRO, LAC, DOMITILA, DIFF ####[place] [address] [place], [place] [address] Neutrophil %, Manual 84.0 % High 37.0-80.0 [facility] ([place]) Comment on above: Performed By: #### M ORPH, CMP, PHV, MDW, CBC, GFR, ADIFF, ANEU, PRO, LAC, DOMITILA, DIFF ####[place] [address] [place], [place] [address] Neutrophil, Abs Manual 43.2 10 3/mcL High 2.9-6.2 [facility] ([place]) Comment on above: Performed By: #### M ORPH, CMP, PHV, MDW, CBC, GFR, ADIFF, ANEU, PRO, LAC, DOMITILA, DIFF ####[place] [address] [place], [place] [address] Nucleated RBC 0.0 /100 WBC Normal [facility] ([place]) Comment on above: Performed By: #### M ORPH, CMP, PHV, MDW, CBC, GFR, ADIFF, ANEU, PRO, LAC, DOMITILA, DIFF ####[place] [address] [place], [place] [address] .Morphon 04-15-2024 Anisocytosis Ql (Bld) 1+ Normal [facility] ([place]) Comment on above: Performed By: #### M ORPH, CMP, PHV, MDW, CBC, GFR, ADIFF, ANEU, PRO, LAC, DOMITILA, DIFF ####[place] [place], [place] [address] Hypochrom 1+ Normal [facility] ([place]) Comment on above: Performed By: #### M ORPH, CMP, PHV, MDW, CBC, GFR, ADIFF, ANEU, PRO, LAC, DOMITILA, DIFF ####[place] [address] [place], [place] [address] Platelet Estimate Slt Increased Normal [facility] ([place]) Comment on above: Performed By: #### M ORPH, CMP, PHV, MDW, CBC, GFR, ADIFF, ANEU, PRO, LAC, DOMITILA, DIFF ####[place] [address] [place], [place] [address] .NEUABSon 04-15-2024 Neutrophil, Absolute 41.2 10 3/mcL High 2.9-6.2 [facility] ([place]) Comment on above: Performed By: #### M ORPH, CMP, PHV, MDW, CBC, GFR, ADIFF, ANEU, PRO, LAC, DOMITILA, DIFF ####[place] [address] [place], [place] [address] ACTONon 04-15-2024 Acetone (s) Negative Normal Negative [facility] ([place]) Comment on above: Performed By: #### M ORPH, CMP, PHV, MDW, CBC, GFR, ADIFF, ANEU, PRO, LAC, DOMITILA, DIFF ####[place] [address] [place], [place] [address] BGon 04-15-2024 Base excess Calc (Bld) [Moles/Vol] -16.[address] mmol/L Normal [facility] ([place]) Comment on above: Performed By: #### Marco G ####[place] [address] [place], [place] [address] CO2 [Moles/Vol] 11.5 mmol/L Low 22.0-30.0 [facility] ([place]) Comment on above: Performed By: #### Marco G ####[place] [address] [place], [place] [address] HCO3 (Bld) [Moles/Vol] 10.6 mmol/L Low 21.0-29.0 [facility] ([place]) Comment on above: Performed By: #### Marco G ####[place] [address] [place], [place] [address] Oxygen (Bld) [Partial pressure] 82.4 mm[Hg] Normal 74.0-108.0 [facility] ([place]) Comment on above: Performed By: #### B G ####[place] [address] [place], [place] [address] Oxygen saturation in Blood 96.1 % High 92.0-96.0 [facility] ([place]) Comment on above: Performed By: #### B G ####[place] [address] [place], [place] [address] pCO2 27.8 mmHg Low 32.0-46.0 [facility] ([place]) Comment on above: Performed By: #### Marco G ####[place] [address] [place], [place] [address] pH (Bld) 7.199 [pH] Critically abnormal 7.380-7.46 0 [facility] ([place]) Comment on above: Performed By: #### B G ####[place] [address] [place], [place] [address] CBCon 04-15-2024 Erythrocyte distribution width (RBC) [Ratio] 16.6 % High 11.5-14.5 [facility] ([place]) Comment on above: Performed By: #### M ORPH, CMP, PHV, MDW, CBC, GFR, ADIFF, ANEU, PRO, LAC, DOMITILA, DIFF ####[place] [address] [place], [place] [address] Hematocrit (Bld) [Volume fraction] 28.5 % Low 42.0-52.0 [facility] ([place]) Comment on above: Performed By: #### M ORPH, CMP, PHV, MDW, CBC, GFR, ADIFF, ANEU, PRO, LAC, DOMITILA, DIFF ####[place] [address] [place], [place] [address] Hgb 9.2 G/dL Low 14.0-18.0 [facility] ([place]) Comment on above: Performed By: #### M ORPH, CMP, PHV, MDW, CBC, GFR, ADIFF, ANEU, PRO, LAC, DOMITILA, DIFF ####[place] [address] [place], [place] [address] MCH (RBC) [Entitic mass] 25.1 pg Low 27.0-31.2 [facility] ([place]) Comment on above: Performed By: #### M ORPH, CMP, PHV, MDW, CBC, GFR, ADIFF, ANEU, PRO, LAC, DOMITILA, DIFF ####[place] [address] [place], [place] [address] MCHC 32.2 G/dL Normal 31.8-35.4 [facility] ([place]) Comment on above: Performed By: #### M ORPH, CMP, PHV, MDW, CBC, GFR, ADIFF, ANEU, PRO, LAC, DOMITILA, DIFF ####[place] [address] [place], [place] [address] MCV (RBC) [Entitic vol] 78.0 fL Low 80.0-94.0 [facility] ([place]) Comment on above: Performed By: #### M ORPH, CMP, PHV, MDW, CBC, GFR, ADIFF, ANEU, PRO, LAC, DOMITILA, DIFF ####[place] [place], [place] [address] Platelet 550 10 3/mcL High 130-400 [facility] ([place]) Comment on above: Performed By: #### M ORPH, CMP, PHV, MDW, CBC, GFR, ADIFF, ANEU, PRO, LAC, DOMITILA, DIFF ####[place] [address] [place], [place] [address] Platelet mean volume (Bld) [Entitic vol] 8.5 fL Normal 7.4-10.4 [facility] ([place]) Comment on above: Performed By: #### M ORPH, CMP, PHV, MDW, CBC, GFR, ADIFF, ANEU, PRO, LAC, DOMITILA, DIFF ####[place] [address] [place], [place] [address] RBC 3.65 10 6/mcL Low 4.04-6.13 [facility] ([place]) Comment on above: Performed By: #### M ORPH, CMP, PHV, MDW, CBC, GFR, ADIFF, ANEU, PRO, LAC, DOMITILA, DIFF ####[place] [address] [place], [place] [address] WBC 46.0 10 3/mcL High 4.6-10.8 [facility] ([place]) Comment on above: Performed By: #### M ORPH, CMP, PHV, MDW, CBC, GFR, ADIFF, ANEU, PRO, LAC, DOMITILA, DIFF ####[place] [address] [place], [place] [address] CMPon 04-15-2024 ALT [Catalytic activity/Vol] 13 U/L Low 16-63 [facility] ([place]) Comment on above: Performed By: #### M ORPH, CMP, PHV, MDW, CBC, GFR, ADIFF, ANEU, PRO, LAC, DOMITILA, DIFF ####[place] [address] [place], [place] [address] Potassium [Moles/Vol] 8.0 mmol/L Critically abnormal 3.5-5.1 [facility] ([place]) Comment on above: Performed By: #### M ORPH, CMP, PHV, MDW, CBC, GFR, ADIFF, ANEU, PRO, LAC, DOMITILA, DIFF ####[place] [address] [place], [place] [address] Albumin Level 1.7 G/dL Low 3.5-5.0 [facility] ([place]) Comment on above: Performed By: #### M ORPH, CMP, PHV, MDW, CBC, GFR, ADIFF, ANEU, PRO, LAC, DOMITILA, DIFF ####[place] [address] [place], [place] [address] Albumin/Globulin [Mass ratio] 0.3 {ratio} Low 1.1-2.5 [facility] ([place]) Comment on above: Performed By: #### M ORPH, CMP, PHV, MDW, CBC, GFR, ADIFF, ANEU, PRO, LAC, DOMITILA, DIFF ####[place] [address] [place], [place] [address] ALP [Catalytic activity/Vol] 231 U/L High 40-135 [facility] ([place]) Comment on above: Performed By: #### M ORPH, CMP, PHV, MDW, CBC, GFR, ADIFF, ANEU, PRO, LAC, DOMITILA, DIFF ####[place] [address] [place], [place] [address] AST [Catalytic activity/Vol] 11 U/L Normal 10-40 [facility] ([place]) Comment on above: Performed By: #### M ORPH, CMP, PHV, MDW, CBC, GFR, ADIFF, ANEU, PRO, LAC, DOMITILA, DIFF ####[place] [id number] [place], [place] [address] Bili Total 2.0 mg/dL High 0.2-1.0 [facility] ([place]) Comment on above: Result Comment: Use of this assay is not recommended for patients undergoing treatment with eltrombopag due to the potential for falsely elevated results. Performed By: #### M ORPH, CMP, PHV, MDW, CBC, GFR, ADIFF, ANEU, PRO, LAC, DOMITILA, DIFF ####[place] [id number] [place], [place] [address] BUN/Creatinine Ratio 17 ratio Normal 7-27 [facility] ([place]) Comment on above: Performed By: #### M ORPH, CMP, PHV, MDW, CBC, GFR, ADIFF, ANEU, PRO, LAC, DOMITILA, DIFF ####[place] [id number] [place], [place] [address] Calcium [Mass/Vol] 8.4 mg/dL Normal 8.4-10.2 [facility] ([place]) Comment on above: Performed By: #### M ORPH, CMP, PHV, MDW, CBC, GFR, ADIFF, ANEU, PRO, LAC, DOMITILA, DIFF ####[place] [id number] [place], [place] [address] Chloride [Moles/Vol] 97 mmol/L Low 98-107 [facility] ([place]) Comment on above: Performed By: #### M ORPH, CMP, PHV, MDW, CBC, GFR, ADIFF, ANEU, PRO, LAC, DOMITILA, DIFF ####[place] [id number] [place], [place] [address] CO2 [Moles/Vol] 14 mmol/L Low 22-29 [facility] ([place]) Comment on above: Performed By: #### M ORPH, CMP, PHV, MDW, CBC, GFR, ADIFF, ANEU, PRO, LAC, DOMITILA, DIFF ####[place] [address], [place] [address] Creatinine [Mass/Vol] 5.01 mg/dL High 0.70-1.30 [facility] ([place]) Comment on above: Performed By: #### M ORPH, CMP, PHV, MDW, CBC, GFR, ADIFF, ANEU, PRO, LAC, DOMITILA, DIFF ####[place] [address], [place] [address] Electrolyte Balance 15.0 mEq/L Normal 4.0-15.0 [facility] ([place]) Comment on above: Performed By: #### M ORPH, CMP, PHV, MDW, CBC, GFR, ADIFF, ANEU, PRO, LAC, DOMITILA, DIFF ####[place] [address], [place] [address] Globulin 5.9 G/dL Normal [facility] ([place]) Comment on above: Performed By: #### M ORPH, CMP, PHV, MDW, CBC, GFR, ADIFF, ANEU, PRO, LAC, DOMITILA, DIFF ####[place] [address], [place] [address] Glucose [Mass/Vol] 371 mg/dL High 70-105 [facility] ([place]) Comment on above: Performed By: #### M ORPH, CMP, PHV, MDW, CBC, GFR, ADIFF, ANEU, PRO, LAC, DOMITILA, DIFF ####[place] [address], [place] [address] Sodium [Moles/Vol] 126 mmol/L Low 136-145 [facility] ([place]) Comment on above: Performed By: #### M ORPH, CMP, PHV, MDW, CBC, GFR, ADIFF, ANEU, PRO, LAC, DOMITILA, DIFF ####[place] [address], [place] [address] Total Protein 7.6 G/dL Normal 6.4-8.2 [facility] ([place]) Comment on above: Performed By: #### M ORPH, CMP, PHV, MDW, CBC, GFR, ADIFF, ANEU, PRO, LAC, DOMITILA, DIFF ####[place] [address] [place] [address], [place] [address] Urea nitrogen [Mass/Vol] 85 mg/dL High 7-18 [facility] ([place]) Comment on above: Performed By: #### M ORPH, CMP, PHV, MDW, CBC, GFR, ADIFF, ANEU, PRO, LAC, DOMITILA, DIFF ####[place] [address], [place] [address] CT ABDOMEN/PELVIS W/O CONTRA STon 04-15-2024 CT ABDOMEN/PELVIS W/O CONTRAST Normal [facility] ([place]) LABORATORYOrdered By: Sidney Abdi on 04-15-2024 Base Excess -16.0 mmol/L Invalid Interpretation Code AO Rapid Comm SS CO2 [Moles/Vol] 11.5 mmol/L Low 22.0 - 30.0 mmol/L AO Rapid Comm SS HCO3 (Bld) [Moles/Vol] 10.6 mmol/L Low 21.0 - 29.0 mmol/L AO Rapid Comm SS Oxygen (Bld) [Partial pressure] 82.4 mm[Hg] Normal 74.0 - 108.0 mm Hg AO Rapid Comm SS pCO2 27.8 mm[Hg] Low 32.0 - 46.0 mm Hg AO Rapid Comm SS pH (Bld) 7.199 [pH] Invalid Interpretation Code 7.380 - 7.460 AO Rapid Comm SS INR Coag (PPP) [Relative time] 1.3 {INR} Invalid Interpretation Code AO [facility] SS Comment on above: Interpretive Data: Alexis briones [employer] (CHEST, 1992, 102:312S-25S) recommended therapeutic range for oral anticoagulant therapy is: LOW RISK: Prophylaxis of venous thrombosis INR: 2.0-3.0 Treatment of pulmonary embolism 2.0-3.0 Prevention of systemic embolism 2.0-3.0 HIGH RISK: Mechanical prosthetic valves 2.5-3.5 Ketones [Mass/Vol] Negative Normal Negative AO Rap id Testing SS pH (Bld) 7.202 [pH] Low 7.380 - 7.460 AO Rapid Comm SS PT Coag (PPP) [Time] 15.3 s High 9.0 - 1 4.4 seconds AO [facility] SS LABORATORYOrdered By: Deena Mccabe on 04-15-2024 Glucose [Mass/Vol] 370 mg/dL High 70 - 110 mg/dL [facility] Work Phone: LABORATORYOrdered By: SYSTEM SYSTEM on 04-15-2024 Albumin BCP dye [Mass/Vol] 1.7 G/dL Low 3.5 - 5.0 G/dL AO ADM SS Albumin/Globulin [Mass ratio] 0.3 {ratio} Low 1.1 - 2.5 ratio AO ADM SS ALP [Catalytic activity/Vol] 231 U/L High 40 - 135 U/L AO ADM SS ALT With P-5'-P [Catalytic activity/Vol] 13 U/L Low 16 - 63 U/L AO ADM SS Anisocytosis Ql (Bld) 1+ *NA* (04/15/24 7:54 PM) Invalid Interpretation Code AO Workflow SS AST With P-5'-P [Catalytic activity/Vol] 11 U/L Normal 10 - 40 U/L AO ADM SS Bands 10.0 % High 0.0 - 5.0 % AO Workflow SS Basophil %, Manual 0.0 % Normal 0.0 - 2.5 % AO Workflow SS Basophil, Abs Manual 0.0 103/mcL Normal 0.0 - 0 .2 10^3/mcL AO Workflow SS Basophil, Absolute 0.1 103/mcL Normal 0.0 - 0.2 10^3/mcL AO Workflow SS Basophils/100 WBC (Bld) 0.2 % Normal 0.0 - 2.5 % AO Workflow SS Bilirubin [Mass/Vol] 2.0 mg/dL High 0.2 - 1 .0 mg/dL AO ADM SS Comment on above: Interpretive Data: U se of this assay is not recommended for patients undergoing treatment with eltrombopag due to the potential for falsely elevated results. Calcium [Mass/Vol] 8.4 mg/dL Normal 8.4 - 10. 2 mg/dL AO ADM SS Chloride [Moles/Vol] 97 mmol/L Low 98 - 10 7 mmol/L AO ADM SS CO2 [Moles/Vol] 14 mmol/L Low 22 - 29 mmol/L AO ADM SS Creatinine [Mass/Vol] 5.01 mg/dL High 0.70 - 1.30 mg/dL AO ADM SS Electrolyte Balance 15.0 mEq/L Normal 4.0 - 15 .0 mEq/L AO ADM SS Eosinophil %, Manual 0.0 % Normal 0.0 - 7 .0 % AO Workflow SS Eosinophil, Absolute 0.2 103/mcL Normal 0.0 - 0 .4 10^3/mcL AO Workflow SS Eosinophils (Bld) [#/Vol] 0.0 103/mcL Normal 0.0 - 0.4 10^3/mcL AO Workflow SS Eosinophils/100 WBC (Bld) 0.5 % Normal 0.0 - 7.0 % AO Workflow SS Erythrocyte distribution width (RBC) [Ratio] 16.6 % High 11.5 - 14.5 % AO Workflow SS GFR/1.73 sq M.predicted among blacks MDRD (S/P/Bld) [Vol rate/Area] 15 ml/min/1.73sqm Invalid Interpretation Code AO Chemistry S Comment on above: Interpretive Data: GFR Population mean for , Non- Americans Ages 20-29 = 116 mL/min/1.73 sq.m. Ages 30-39 = 107 mL/min/1.73 sq.m. Ages 40-49 = 99 mL/min/1.73 sq.m. Ages 50-59 = 93 mL/min/1.73 sq.m. Ages 60-69 = 85 mL/min/1.73 sq.m. Ages 70+ = 75 mL/min/1.73 sq.m. Chronic Kidney Disease: Less than 60 mL/min/1.73 square meters End Stage Renal Disease: Less than 15 mL/min/1.73 square meters GFR/1.73 sq M.predicted among non-blacks MDRD (S/P/Bld) [Vol rate/Area] 13 ml/min/1.73sqm Invalid Interpretation Code AO Chemistry S Comment on above: Interpretive Data: GFR Population mean for , Non- Americans Ages 20-29 = 116 mL/min/1.73 sq.m. Ages 30-39 = 107 mL/min/1.73 sq.m. Ages 40-49 = 99 mL/min/1.73 sq.m. Ages 50-59 = 93 mL/min/1.73 sq.m. Ages 60-69 = 85 mL/min/1.73 sq.m. Ages 70+ = 75 mL/min/1.73 sq.m. Chronic Kidney Disease: Less than 60 mL/min/1.73 square meters End Stage Renal Disease: Less than 15 mL/min/1.73 square meters Globulin 5.9 G/dL Invalid Interpretation Code AO ADM SS Glucose [Mass/Vol] 371 mg/dL High 70 - 105 mg/dL AO ADM SS Hematocrit (Bld) [Volume fraction] 28.5 % Low 42.0 - 52.0 % AO Workflow SS Hemoglobin (Bld) [Mass/Vol] 9.2 G/dL Low 14.0 - 18.0 G/dL AO Workflow SS Hypochromia Ql (Bld) 1+ *NA* (04/15/24 7:54 PM) Invalid Interpretation Code AO Workflow SS Lactate [Moles/Vol] 1.2 mmol/L Normal 0.4 - 2. 0 mmol/L AO ADM SS Lymphocyte %, Manual 4.0 % Low 10.0 - 50.0 % AO Workflow SS Lymphocyte, Abs Manual 1.9 103/mcL Normal 0.8 - 3.9 10^3/mcL AO Workflow SS Lymphocyte, Absolute 1.9 103/mcL Normal 0.8 - 3 .9 10^3/mcL AO Workflow SS Lymphocytes/100 WBC (Bld) 4.0 % Low 10.0 - 50.0 % AO Workflow SS MCH (RBC) [Entitic mass] 25.1 pg Low 27.0 - 31.2 pg AO Workflow SS MCHC 32.2 G/dL Normal 31.8 - 35.4 G/dL AO Workflow SS MCV (RBC) [Entitic vol] 78.0 fL Low 80.0 - 94.0 fL AO Workflow SS Monocyte %, Manual 2.0 % Normal 1.7 - 13. 0 % AO Workflow SS Monocyte distribution width Auto (Bld) [Entitic vol] 23.75 1 High 0.00 - 20.00 AO Workflow SS Comment on above: Result Comment: For adults in ED, MDW>20.0 may be associated with a higher risk of sepsis during the first 12hrs of hospital admission The predictive value of MDW for identifying sepsis in patients with hematological abnormalities has not been established Monocyte, Abs Manual 0.9 103/mcL Normal 0.2 - 1 .0 10^3/mcL AO Workflow SS Monocyte, Absolute 2.7 103/mcL High 0.2 - 1.0 10^3/mcL AO Workflow SS Monocytes/100 WBC (Bld) 5.8 % Normal 1.7 - 13.0 % AO Workflow SS Neutrophil %, Manual 84.0 % High 37.0 - 80.0 % AO Workflow SS Neutrophil, Abs Manual 43.2 103/mcL High 2.9 - 6.2 10^3/mcL AO Workflow SS Neutrophil, Absolute 41.2 103/mcL High 2.9 - 6 .2 10^3/mcL AO Workflow SS Neutrophils/100 WBC (Bld) 89.5 % High 37.0 - 80.0 % AO Workflow SS Nucleated RBC 0.0 /100 WBC Invalid Interpretation Code AO Workflow SS Platelet Estimate Slt Increased *NA* (04/15/24 7:54 PM) Invalid Interpretation Code AO Workflow SS Platelet mean volume (Bld) [Entitic vol] 8.5 fL Normal 7.4 - 10.4 fL AO Workflow SS Platelets (Bld) [#/Vol] 550 103/mcL High 130 - 400 10^3/mcL AO Workflow SS Potassium [Moles/Vol] 8.0 mmol/L Invalid Interpretation Code 3.5 - 5.1 mmol/L AO ADM SS Protein [Mass/Vol] 7.6 G/dL Normal 6.4 - 8.2 G/dL AO ADM SS RBC (Bld) [#/Vol] 3.65 106/mcL Low 4.04 - 6.13 10^6/mcL AO Workflow SS Sodium [Moles/Vol] 126 mmol/L Low 136 - 145 mmol/L AO ADM SS Urea nitrogen [Mass/Vol] 85 mg/dL High 7 - 18 mg/dL AO ADM SS Urea nitrogen/Creatinine [Mass ratio] 17 ratio Normal 7 - 27 ratio AO ADM SS WBC (Bld) [#/Vol] 46.0 103/mcL High 4.6 - 10.8 10^3/mcL AO Workflow SS LACon 05-28-2024 Lactic Acid Lvl 1.2 mmol/L Normal 0.4-2.0 [facility] ([place]) Comment on above: Performed By: #### M ORPH, CMP, PHV, MDW, CBC, GFR, ADIFF, ANEU, PRO, LAC, DOMITILA, DIFF ####[facility] [place] [address], [place] [address] No Panel Informationon 04-15 Microscopic examination of blood, culture Culture has been received in lab and is no growth to date. Routine cultures are held for 5 days. [facility] Work Phone: PHVon 04-15-2024 pH Venous 7.202 Low 7.380-7.46 0 [facility] ([place]) Comment on above: Performed By: #### M ORPH, CMP, PHV, MDW, CBC, GFR, ADIFF, ANEU, PRO, LAC, DOMITILA, DIFF ####[facility], [place] [address] PROon 04-15-2024 PT Coag (PPP) [Time] 15.3 s High 9.0-14.4 [facility] ([place]) Comment on above: Performed By: #### M ORPH, CMP, PHV, MDW, CBC, GFR, ADIFF, ANEU, PRO, LAC, DOMITILA, DIFF ####[facility] [place] [address], [place] [address] PT International Ratio 1.3 Normal [facility] ([place]) Comment on above: Result Comment: [employer] (CHEST, 1992, 102:312S-25S)recommended therapeutic range for oral anticoagulant therapy is:LOW RISK: Prophylaxis of venous thrombosis INR: 2.0-3.0 Treatment of pulmonary embolism 2.0-3.0 Prevention of systemic embolism 2.0-3.0HIGH RISK: Mechanical prosthetic valves 2.5-3.5 Performed By: #### M ORPH, CMP, PHV, MDW, CBC, GFR, ADIFF, ANEU, PRO, LAC, DOMITILA, DIFF ####[facility], [place] [address] .Urinalysis Microscopic (AO) on 04-06-2024 UA Amorphus 2+ /hpf Normal [facility] ([place]) Comment on above: Performed By: #### U A, UAMICAO ####[place] [address] [place] [address], [place] [address] UA Bacteria 2+ /hpf Abnormal [facility] ([place]) Comment on above: Performed By: #### U A, UAMICAO ####[place] [address] [place] [address], [place] [address] UA RBC 0-5 Abnormal None Seen [facility] ([place]) Comment on above: Performed By: #### U A, UAMICAO ####[place] [address] [place] [address], [place] [address] UA Squam Epithelial LOADED Abnormal None Seen [facility] ([place]) Comment on above: Performed By: #### U A, UAMICAO ####[place] [address] [place] [address] UA WBC 5-10 Abnormal None Seen [facility] ([place]) Comment on above: Performed By: #### U A, UAMICAO ####[place] [address] [place] [address] LABORATORYOrdered By: Cherelle Dasilva on 04-06-2024 Appearance (U) Clear (04/06/24 2:39 PM) Normal Clear AO Auto Urine SS Bacteria LM.HPF (Urine sed) [#/Area] 2 /[HPF] Invalid Interpretation Code AO Auto Urine SS Bilirubin Ql (U) Negative (04/06/24 2:39 PM) Normal Negative AO Auto Urine SS Color (U) Yellow (04/06/24 2:39 PM) Normal AO Auto Urine SS Crystals.amorphous LM.HPF (Urine sed) [#/Area] 2 /[HPF] Normal AO Auto Urine SS Glucose Test strip (U) [Mass/Vol] 500 mg/dL Invalid Interpretation Code Negative AO Auto Urine SS Hemoglobin Auto test strip (U) [Mass/Vol] Trace *ABN* (04/06/24 2:39 PM) Invalid Interpretation Code Negative AO Auto Urine SS Ketones Ql (U) Negative Normal Negative AO Auto Urine SS UA Leuk Est Negative (04/06/24 2:39 PM) Normal Negative AO Auto Urine SS UA Nitrite Negative (04/06/24 2:39 PM) Normal Negative AO Auto Urine SS UA pH 5.5 (04/06/24 2:39 PM) Normal 5.0 - 8.0 AO Auto Urine SS UA Protein 100 mg/dL Invalid Interpretation Code Negative AO Auto Urine SS UA RBC 0-5 /HPF Invalid Interpretation Code None Seen AO Auto Urine SS UA Spec Grav 1.020 (04/06/24 2:39 PM) Normal 1.015-1.02 5 AO Auto Urine SS UA Specimen Type Not Given (04/06/24 2:39 PM) Normal AO Auto Urine SS UA Squam Epithelial LOADED /HPF Invalid Interpretation Code None Seen AO Auto Urine SS UA Urobilinogen 0.2 E.U./dL Normal 0.2-1.0 AO Auto Urine SS WBC LM.HPF (Urine sed) [#/Area] 5-10 /HPF Invalid Interpretation Code None Seen AO Auto Urine SS LABORATORYOrdered By: Simba Dixon on 04-06-2024 Glucose [Mass/Vol] 385 mg/dL High 70 - 110 mg/dL [facility] Work Phone: UAon 04-06-2024 Color (U) Yellow Normal [facility] ([place]) Comment on above: Performed By: #### U A, UAMICAO ####[place] [address] [place] [address], [place] [address] Glucose (U) [Mass/Vol] 500 mg/dL Abnormal Negative [facility] ([place]) Comment on above: Performed By: #### U A, UAMICAO ####[place] [address] [place] [address], [place] [address] Ketones Ql (U) Negative Normal Negative [facility] ([place]) Comment on above: Performed By: #### U A, UAMICAO ####[place] [address] [place] [address], [place] [address] UA Appear Clear Normal Clear [facility] ([place]) Comment on above: Performed By: #### U A, UAMICAO ####[place] [address] [place] [address], [place] [address] UA Blood Trace Abnormal Negative [facility] ([place] Comment on above: Performed By: #### U A, UAMICAO ####[place] [address], [place] [address] UA Leuk Est Negative Normal Negative [facility] ([place]) Comment on above: Performed By: #### U A, UAMICAO ####[place] [address] [place] [address], [place] [address] UA Nitrite Negative Normal Negative [facility] ([place]) Comment on above: Performed By: #### U A, UAMICAO ####[place] [address] [place] [address], [place] [address] UA pH 5.5 Normal 5.0 - 8.0 [facility] ([place]) Comment on above: Performed By: #### U A, UAMICAO ####[place] [address] [place] [address] UA Protein 100 mg/dL Abnormal Negative [facility] ([place] Comment on above: Performed By: #### U A, UAMICAO ####[place] [address] [place] [address] UA Spec Grav 1.020 Normal 1.015-1.02 5 [facility] ([place] Comment on above: Performed By: #### U A, UAMICAO ####[place] [address] [place] [address] UA Specimen Type Not Given Normal [facility] ([place]) Comment on above: Performed By: #### U A, UAMICAO ####[place] [address] [place] [address] UA Urobilinogen 0.2 E.U./dL Normal 0.2-1.0 [facility] ([place]) Comment on above: Performed By: #### U A, UAMICAO ####[place] [address] [place] [address] Urobilinogen (U) [Mass/Vol] Negative Normal Negative [facility] ([place]) Comment on above: Performed By: #### U A, UAMICAO ####[place] [address] [place] [address], [place] [address] XR PELVIS 1 OR 2 VIEWSon XR PELVIS 1 OR 2 VIEWS Normal [facility] ([place]) .GFRon 03-11-2024 GFR 31 ml/min/1.73sqm Normal [facility] ([place]) Comment on above: Result Comment: GFR Population mean for , Non- Americans Ages 20-29 = 116 mL/min/1.73 sq.m. Ages 30-39 = 107 mL/min/1.73 sq.m. Ages 40-49 = 99 mL/min/1.73 sq.m. Ages 50-59 = 93 mL/min/1.73 sq.m. Ages 60-69 = 85 mL/min/1.73 sq.m. Ages 70+ = 75 mL/min/1.73 sq.m.Chronic Kidney Disease: Less than 60 mL/min/1.73 square metersEnd Stage Renal Disease: Less than 15 mL/min/1.73 square meters Performed By: #### Ceci G, GFR, BMP ####[place] [address], [place] [address] GFR Non- 25 ml/min/1.73sqm Normal [facility] ([place]) Comment on above: Result Comment: GFR Population mean for , Non- Americans Ages 20-29 = 116 mL/min/1.73 sq.m. Ages 30-39 = 107 mL/min/1.73 sq.m. Ages 40-49 = 99 mL/min/1.73 sq.m. Ages 50-59 = 93 mL/min/1.73 sq.m. Ages 60-69 = 85 mL/min/1.73 sq.m. Ages 70+ = 75 mL/min/1.73 sq.m.Chronic Kidney Disease: Less than 60 mL/min/1.73 square metersEnd Stage Renal Disease: Less than 15 mL/min/1.73 square meters Performed By: #### M G, GFR, BMP ####[place] [address] [place] [address], [place] [address] A1C SOon 03-11-2024 HbA1c (Bld) [Mass fraction] % High 4.8-5.6 [facility] ([place]) Comment on above: Result Comment: Ve rified by repeat analysis Prediabetes: 5.7 - 6.4 Diabetes: >6.4 Glycemic control for adults with diabetes: <7.0Performed At: [facility] [place], [place] [id number] Vincent PhD Ph:[phone] Performed By: #### M G, FT3, CBC, TSH, ADIFF, GFR, FT4, BMP, FERR, ANEU, FES ####[place] [address], [place] [address]#### [id number] ####[place] [address] BMPon 03-11-2024 BUN/Creatinine Ratio 16 ratio Normal 7-27 [facility] ([place]) Comment on above: Performed By: #### Ceci Johnson, GFR, BMP ####[place] [address], [place] [address] Calcium [Mass/Vol] 8.9 mg/dL Normal 8.4-10.2 [facility] ([place]) Comment on above: Performed By: #### Ceci G, GFR, BMP ####[place] [address], [place] [address] Chloride [Moles/Vol] 104 mmol/L Normal 98-107 [facility] ([place]) Comment on above: Performed By: #### Ceci G, GFR, BMP ####[place] [address], [place] [address] CO2 [Moles/Vol] 24 mmol/L Normal 22-29 [facility] ([place]) Comment on above: Performed By: #### M G, GFR, BMP ####[place] [address], [place] [address] Creatinine [Mass/Vol] 2.71 mg/dL High 0.70-1.30 [facility] ([place]) Comment on above: Performed By: #### M G, GFR, BMP ####[place] [address], [place] [address] Electrolyte Balance 11.0 mEq/L Normal 4.0-15.0 [facility] ([place]) Comment on above: Performed By: #### M G, GFR, BMP ####[place] [address] [place] [address], [place] [address] Glucose [Mass/Vol] 265 mg/dL High 70-105 [facility] ([place]) Comment on above: Performed By: #### M G, GFR, BMP ####[place] [address], [place] [address] Potassium [Moles/Vol] 4.8 mmol/L Normal 3.5-5.1 [facility] ([place]) Comment on above: Performed By: #### M G, GFR, BMP ####[place] [address] [place] [address], [place] [address] Sodium [Moles/Vol] 139 mmol/L Normal 136-145 [facility] ([place]) Comment on above: Performed By: #### M G, GFR, BMP ####[place] [address], [place] [address] Urea nitrogen [Mass/Vol] 44 mg/dL High 7-18 [facility] ([place]) Comment on above: Performed By: #### M G, GFR, BMP ####[place] [address] [place] [address], [place] [address] LABORATORYOrdered By: Bright Blount on 03-11-2024 Blood Glucose Testing Reason Routine (03/11/24 11:31 AM) [facility] Work Phone: Glucose [Mass/Vol] 356 mg/dL High 70 - 110 mg/dL [facility] Work Phone: Blood Glucose Testing Reason Routine (03/11/24 7:45 AM) [facility] Work Phone: Glucose [Mass/Vol] 292 mg/dL High 70 - 110 mg/dL [facility] Work Phone: LABORATORYOrdered By: SYSTEM SYSTEM on 03-11-2024 Calcium [Mass/Vol] 8.9 mg/dL Normal 8.4 - 10. 2 mg/dL AO ADM SS Chloride [Moles/Vol] 104 mmol/L Normal 98 - 10 7 mmol/L AO ADM SS CO2 [Moles/Vol] 24 mmol/L Normal 22 - 29 mmol/L AO ADM SS Creatinine [Mass/Vol] 2.71 mg/dL High 0.70 - 1.30 mg/dL AO ADM SS Electrolyte Balance 11.0 mEq/L Normal 4.0 - 15 .0 mEq/L AO ADM SS GFR/1.73 sq M.predicted among blacks MDRD (S/P/Bld) [Vol rate/Area] 31 ml/min/1.73sqm Invalid Interpretation Code AO Chemistry S Comment on above: Interpretive Data: GFR Population mean for , Non- Americans Ages 20-29 = 116 mL/min/1.73 sq.m. Ages 30-39 = 107 mL/min/1.73 sq.m. Ages 40-49 = 99 mL/min/1.73 sq.m. Ages 50-59 = 93 mL/min/1.73 sq.m. Ages 60-69 = 85 mL/min/1.73 sq.m. Ages 70+ = 75 mL/min/1.73 sq.m. Chronic Kidney Disease: Less than 60 mL/min/1.73 square meters End Stage Renal Disease: Less than 15 mL/min/1.73 square meters GFR/1.73 sq M.predicted among non-blacks MDRD (S/P/Bld) [Vol rate/Area] 25 ml/min/1.73sqm Invalid Interpretation Code AO Chemistry S Comment on above: Interpretive Data: GFR Population mean for , Non- Americans Ages 20-29 = 116 mL/min/1.73 sq.m. Ages 30-39 = 107 mL/min/1.73 sq.m. Ages 40-49 = 99 mL/min/1.73 sq.m. Ages 50-59 = 93 mL/min/1.73 sq.m. Ages 60-69 = 85 mL/min/1.73 sq.m. Ages 70+ = 75 mL/min/1.73 sq.m. Chronic Kidney Disease: Less than 60 mL/min/1.73 square meters End Stage Renal Disease: Less than 15 mL/min/1.73 square meters Glucose [Mass/Vol] 265 mg/dL High 70 - 105 mg/dL AO ADM SS Magnesium [Mass/Vol] 1.9 mg/dL Normal 1.8 - 2 .4 mg/dL AO ADM SS Potassium [Moles/Vol] 4.8 mmol/L Normal 3.5 - 5.1 mmol/L AO ADM SS Sodium [Moles/Vol] 139 mmol/L Normal 136 - 145 mmol/L AO ADM SS Urea nitrogen [Mass/Vol] 44 mg/dL High 7 - 18 mg/dL AO ADM SS Urea nitrogen/Creatinine [Mass ratio] 16 ratio Normal 7 - 27 ratio AO ADM SS MGon 03-11-2024 Magnesium [Mass/Vol] 1.9 mg/dL Normal 1.8-2.4 [facility] ([place]) Comment on above: Performed By: #### Ceci G, GFR, BMP ####[place] [address], [place] [address] .GFRon 03-10-2024 GFR 31 ml/min/1.73sqm Normal [facility] ([place]) Comment on above: Result Comment: GFR Population mean for , Non- Americans Ages 20-29 = 116 mL/min/1.73 sq.m. Ages 30-39 = 107 mL/min/1.73 sq.m. Ages 40-49 = 99 mL/min/1.73 sq.m. Ages 50-59 = 93 mL/min/1.73 sq.m. Ages 60-69 = 85 mL/min/1.73 sq.m. Ages 70+ = 75 mL/min/1.73 sq.m.Chronic Kidney Disease: Less than 60 mL/min/1.73 square metersEnd Stage Renal Disease: Less than 15 mL/min/1.73 square meters Performed By: #### G FR, MG, BMP ####[place] [address] [place] [address], [place] [address] GFR Non- 26 ml/min/1.73sqm Normal [facility] ([place]) Comment on above: Result Comment: GFR Population mean for , Non- Americans Ages 20-29 = 116 mL/min/1.73 sq.m. Ages 30-39 = 107 mL/min/1.73 sq.m. Ages 40-49 = 99 mL/min/1.73 sq.m. Ages 50-59 = 93 mL/min/1.73 sq.m. Ages 60-69 = 85 mL/min/1.73 sq.m. Ages 70+ = 75 mL/min/1.73 sq.m.Chronic Kidney Disease: Less than 60 mL/min/1.73 square metersEnd Stage Renal Disease: Less than 15 mL/min/1.73 square meters Performed By: #### G FR, MG, BMP ####[place] [address], [place] [address] BMPon 03-10-2024 BUN/Creatinine Ratio 16 ratio Normal 7-27 [facility] ([place]) Comment on above: Performed By: #### G FR, MG, BMP ####[place] [address], [place] [address] Calcium [Mass/Vol] 8.8 mg/dL Normal 8.4-10.2 [facility] ([place]) Comment on above: Performed By: #### Elizabeth FR, MG, BMP ####[place] [address], [place] [address] Chloride [Moles/Vol] 104 mmol/L Normal 98-107 [facility] ([place]) Comment on above: Performed By: #### Elizabeth FR, MG, BMP ####[place] [address] [place] [address], [place] [address] CO2 [Moles/Vol] 24 mmol/L Normal 22-29 [facility] ([place]) Comment on above: Performed By: #### Elizabeth FR, MG, BMP ####[place] [address], [place] [address] Creatinine [Mass/Vol] 2.67 mg/dL High 0.70-1.30 [facility] ([place]) Comment on above: Performed By: #### Elizabeth FR, MG, BMP ####[place] [address] [place] [address], [place] [address] Electrolyte Balance 10.0 mEq/L Normal 4.0-15.0 [facility] ([place]) Comment on above: Performed By: #### Elizabeth FR, MG, BMP ####[address] [place], [place] [address] Glucose [Mass/Vol] 339 mg/dL High 70-105 [facility] ([place]) Comment on above: Performed By: #### G FR, MG, BMP ####[address] [place] [address], [place] [address] Potassium [Moles/Vol] 4.6 mmol/L Normal 3.5-5.1 [facility] ([place]) Comment on above: Performed By: #### G FR, MG, BMP ####[address] [place], [place] [address] Sodium [Moles/Vol] 138 mmol/L Normal 136-145 [facility] ([place]) Comment on above: Performed By: #### G FR, MG, BMP ####[address] [place] [address], [place] [address] Urea nitrogen [Mass/Vol] 43 mg/dL High 7-18 [facility] ([place]) Comment on above: Performed By: #### G FR, MG, BMP ####[address] [place], [place] [address] LABORATORYOrdered By: Bernie Willoughby on 03-10-2024 Glucose [Mass/Vol] 258 mg/dL High 70 - 110 mg/dL [facility] Work Phone: LABORATORYOrdered By: Edward Galeano on 03-10-2024 Blood Glucose Testing Reason Routine (03/10/24 4:28 PM) [facility] Work Phone: LABORATORYOrdered By: SYSTEM SYSTEM on 03-10-2024 Calcium [Mass/Vol] 8.8 mg/dL Normal 8.4 - 10. 2 mg/dL AO ADM SS Chloride [Moles/Vol] 104 mmol/L Normal 98 - 10 7 mmol/L AO ADM SS CO2 [Moles/Vol] 24 mmol/L Normal 22 - 29 mmol/L AO ADM SS Creatinine [Mass/Vol] 2.67 mg/dL High 0.70 - 1.30 mg/dL AO ADM SS Electrolyte Balance 10.0 mEq/L Normal 4.0 - 15 .0 mEq/L AO ADM SS GFR/1.73 sq M.predicted among blacks MDRD (S/P/Bld) [Vol rate/Area] 31 ml/min/1.73sqm Invalid Interpretation Code AO Chemistry S Comment on above: Interpretive Data: GFR Population mean for , Non- Americans Ages 20-29 = 116 mL/min/1.73 sq.m. Ages 30-39 = 107 mL/min/1.73 sq.m. Ages 40-49 = 99 mL/min/1.73 sq.m. Ages 50-59 = 93 mL/min/1.73 sq.m. Ages 60-69 = 85 mL/min/1.73 sq.m. Ages 70+ = 75 mL/min/1.73 sq.m. Chronic Kidney Disease: Less than 60 mL/min/1.73 square meters End Stage Renal Disease: Less than 15 mL/min/1.73 square meters GFR/1.73 sq M.predicted among non-blacks MDRD (S/P/Bld) [Vol rate/Area] 26 ml/min/1.73sqm Invalid Interpretation Code AO Chemistry S Comment on above: Interpretive Data: GFR Population mean for , Non- Americans Ages 20-29 = 116 mL/min/1.73 sq.m. Ages 30-39 = 107 mL/min/1.73 sq.m. Ages 40-49 = 99 mL/min/1.73 sq.m. Ages 50-59 = 93 mL/min/1.73 sq.m. Ages 60-69 = 85 mL/min/1.73 sq.m. Ages 70+ = 75 mL/min/1.73 sq.m. Chronic Kidney Disease: Less than 60 mL/min/1.73 square meters End Stage Renal Disease: Less than 15 mL/min/1.73 square meters Glucose [Mass/Vol] 339 mg/dL High 70 - 105 mg/dL AO ADM SS Magnesium [Mass/Vol] 1.6 mg/dL Low 1.8 - 2 .4 mg/dL AO ADM SS Potassium [Moles/Vol] 4.6 mmol/L Normal 3.5 - 5.1 mmol/L AO ADM SS Sodium [Moles/Vol] 138 mmol/L Normal 136 - 145 mmol/L AO ADM SS Urea nitrogen [Mass/Vol] 43 mg/dL High 7 - 18 mg/dL AO ADM SS Urea nitrogen/Creatinine [Mass ratio] 16 ratio Normal 7 - 27 ratio AO ADM SS MGon 04--2024 Magnesium [Mass/Vol] 1.6 mg/dL Low 1.8-2.4 [facility] ([place]) Comment on above: Performed By: #### G FR, MG, BMP ####[place] [address] [address] .Auto Diffon 03-09-2024 Basophil, Absolute 0.1 10 3/mcL Normal 0.0-0.2 [facility] ([place]) Comment on above: Performed By: #### M G, FT3, CBC, TSH, ADIFF, GFR, FT4, BMP, FERR, ANEU, FES ####[place] [address]#### [id number] ####[address] [address] Basophils/100 WBC (Bld) 0.5 % Normal 0.0-2.5 [facility] ([place]) Comment on above: Performed By: #### M G, FT3, CBC, TSH, ADIFF, GFR, FT4, BMP, FERR, ANEU, FES ####[place] [address]#### [id number] ####[address] [address] Eosinophil, Absolute 0.5 10 3/mcL High 0.0-0.4 [facility] ([place]) Comment on above: Performed By: #### M G, FT3, CBC, TSH, ADIFF, GFR, FT4, BMP, FERR, ANEU, FES ####[place] [address]#### [id number] ####[address] [address] Eosinophils/100 WBC (Bld) 3.6 % Normal 0.0-7.0 [facility] ([place]) Comment on above: Performed By: #### M G, FT3, CBC, TSH, ADIFF, GFR, FT4, BMP, FERR, ANEU, FES ####[place] [address]#### [id number] ####[address] [address] Lymphocyte, Absolute 1.9 10 3/mcL Normal 0.8-3.9 [facility] ([place]) Comment on above: Performed By: #### M G, FT3, CBC, TSH, ADIFF, GFR, FT4, BMP, FERR, ANEU, FES ####[place] [address]#### [id number] ####[address] [address] Lymphocytes/100 WBC (Bld) 13.1 % Normal 10.0-50.0 [facility] ([place]) Comment on above: Performed By: #### M G, FT3, CBC, TSH, ADIFF, GFR, FT4, BMP, FERR, ANEU, FES ####[place] [address]#### [id number] ####[address] [address] Monocyte, Absolute 1.2 10 3/mcL High 0.2-1.0 [facility] ([place]) Comment on above: Performed By: #### M G, FT3, CBC, TSH, ADIFF, GFR, FT4, BMP, FERR, ANEU, FES ####[place] [address]#### [id number] ####[address] [address] Monocytes/100 WBC (Bld) 8.3 % Normal 1.7-13.0 [facility] ([place]) Comment on above: Performed By: #### M G, FT3, CBC, TSH, ADIFF, GFR, FT4, BMP, FERR, ANEU, FES ####[place] [address]#### [id number] ####[address] [address] Neutrophils/100 WBC (Bld) 74.5 % Normal 37.0-80.0 [facility] ([place]) Comment on above: Performed By: #### M G, FT3, CBC, TSH, ADIFF, GFR, FT4, BMP, FERR, ANEU, FES ####[facility] [place] [id number]#### [id number] ####[place] [address] .GFRon 03-09-2024 GFR Non- 25 ml/min/1.73sqm Normal [facility] ([place]) Comment on above: Result Comment: GFR Population mean for , Non- Americans Ages 20-29 = 116 mL/min/1.73 sq.m. Ages 30-39 = 107 mL/min/1.73 sq.m. Ages 40-49 = 99 mL/min/1.73 sq.m. Ages 50-59 = 93 mL/min/1.73 sq.m. Ages 60-69 = 85 mL/min/1.73 sq.m. Ages 70+ = 75 mL/min/1.73 sq.m.Chronic Kidney Disease: Less than 60 mL/min/1.73 square metersEnd Stage Renal Disease: Less than 15 mL/min/1.73 square meters Performed By: #### M G, FT3, CBC, TSH, ADIFF, GFR, FT4, BMP, FERR, ANEU, FES ####[facility] [place] [id number]#### [id number] ####[address] [address] GFR 31 ml/min/1.73sqm Normal [facility] ([place]) Comment on above: Result Comment: GFR Population mean for , Non- Americans Ages 20-29 = 116 mL/min/1.73 sq.m. Ages 30-39 = 107 mL/min/1.73 sq.m. Ages 40-49 = 99 mL/min/1.73 sq.m. Ages 50-59 = 93 mL/min/1.73 sq.m. Ages 60-69 = 85 mL/min/1.73 sq.m. Ages 70+ = 75 mL/min/1.73 sq.m.Chronic Kidney Disease: Less than 60 mL/min/1.73 square metersEnd Stage Renal Disease: Less than 15 mL/min/1.73 square meters Performed By: #### M G, FT3, CBC, TSH, ADIFF, GFR, FT4, BMP, FERR, ANEU, FES ####[place] [address]#### [id number] ####[address] [address] .NEUABSon 03-09-2024 Neutrophil, Absolute 10.5 10 3/mcL High 2.9-6.2 [facility] ([place]) Comment on above: Performed By: #### M G, FT3, CBC, TSH, ADIFF, GFR, FT4, BMP, FERR, ANEU, FES ####[place] [address]#### [id number] ####[place] [address] BMPon 03-09-2024 BUN/Creatinine Ratio 17 ratio Normal 7-27 [facility] ([place]) Comment on above: Performed By: #### M G, FT3, CBC, TSH, ADIFF, GFR, FT4, BMP, FERR, ANEU, FES ####[place] [address]#### [id number] ####[place] [address] Calcium [Mass/Vol] 8.5 mg/dL Normal 8.4-10.2 [facility] ([place]) Comment on above: Performed By: #### M G, FT3, CBC, TSH, ADIFF, GFR, FT4, BMP, FERR, ANEU, FES ####[place] [address]#### [id number] ####[place] [address] Chloride [Moles/Vol] 103 mmol/L Normal 98-107 [facility] ([place]) Comment on above: Performed By: #### M G, FT3, CBC, TSH, ADIFF, GFR, FT4, BMP, FERR, ANEU, FES ####[place] [address]#### [id number] ####[address] [address] CO2 [Moles/Vol] 23 mmol/L Normal 22-29 [facility] ([place]) Comment on above: Performed By: #### M G, FT3, CBC, TSH, ADIFF, GFR, FT4, BMP, FERR, ANEU, FES ####[place] [address]#### [id number] ####[address] [address] Creatinine [Mass/Vol] 2.73 mg/dL High 0.70-1.30 [facility] ([place]) Comment on above: Performed By: #### M G, FT3, CBC, TSH, ADIFF, GFR, FT4, BMP, FERR, ANEU, FES ####[place] [address]#### [id number] ####[place] [address] Electrolyte Balance 9.0 mEq/L Normal 4.0-15.0 [facility] ([place]) Comment on above: Performed By: #### M G, FT3, CBC, TSH, ADIFF, GFR, FT4, BMP, FERR, ANEU, FES ####[place] [address]#### [id number] ####[place] [address] Glucose [Mass/Vol] 267 mg/dL High 70-105 [facility] ([place]) Comment on above: Performed By: #### M G, FT3, CBC, TSH, ADIFF, GFR, FT4, BMP, FERR, ANEU, FES ####[place] [address]#### [id number] ####[address] [address] Potassium [Moles/Vol] 4.5 mmol/L Normal 3.5-5.1 [facility] ([place]) Comment on above: Performed By: #### M G, FT3, CBC, TSH, ADIFF, GFR, FT4, BMP, FERR, ANEU, FES ####[place] [address]#### [id number] ####[address] [address] Sodium [Moles/Vol] 135 mmol/L Low 136-145 [facility] ([place]) Comment on above: Performed By: #### M G, FT3, CBC, TSH, ADIFF, GFR, FT4, BMP, FERR, ANEU, FES ####[place] [address]#### [id number] ####[place] [address] Urea nitrogen [Mass/Vol] 47 mg/dL High 7-18 [facility] ([place]) Comment on above: Performed By: #### M G, FT3, CBC, TSH, ADIFF, GFR, FT4, BMP, FERR, ANEU, FES ####[place] [address]#### [id number] ####[place] [address] CBCon 03-09-2024 Erythrocyte distribution width (RBC) [Ratio] 15.6 % High 11.5-14.5 [facility] ([place]) Comment on above: Performed By: #### M G, FT3, CBC, TSH, ADIFF, GFR, FT4, BMP, FERR, ANEU, FES ####[place] [address]#### [id number] ####[place] [address] Hematocrit (Bld) [Volume fraction] 29.8 % Low 42.0-52.0 [facility] ([place]) Comment on above: Performed By: #### M G, FT3, CBC, TSH, ADIFF, GFR, FT4, BMP, FERR, ANEU, FES ####[place] [address] [place] [address]#### [id number] ####[place] [address] Hgb 9.8 G/dL Low 14.0-18.0 [facility] ([place]) Comment on above: Performed By: #### M G, FT3, CBC, TSH, ADIFF, GFR, FT4, BMP, FERR, ANEU, FES ####[place] [address]#### [id number] ####[place] [address] MCH (RBC) [Entitic mass] 25.9 pg Low 27.0-31.2 [facility] ([place]) Comment on above: Performed By: #### M G, FT3, CBC, TSH, ADIFF, GFR, FT4, BMP, FERR, ANEU, FES ####[place] [address]#### [id number] ####[place] [address] MCHC 33.0 G/dL Normal 31.8-35.4 [facility] ([place]) Comment on above: Performed By: #### M G, FT3, CBC, TSH, ADIFF, GFR, FT4, BMP, FERR, ANEU, FES ####[place] [address]#### [id number] ####[place] [address] MCV (RBC) [Entitic vol] 78.6 fL Low 80.0-94.0 [facility] ([place]) Comment on above: Performed By: #### M G, FT3, CBC, TSH, ADIFF, GFR, FT4, BMP, FERR, ANEU, FES ####[place] [address]#### [id number] ####[place] [address] Platelet 300 10 3/mcL Normal 130-400 [facility] ([place] Comment on above: Performed By: #### M G, FT3, CBC, TSH, ADIFF, GFR, FT4, BMP, FERR, ANEU, FES ####[place] [address]#### [id number] ####[place] [address] Platelet mean volume (Bld) [Entitic vol] 8.6 fL Normal 7.4-10.4 [facility] ([place]) Comment on above: Performed By: #### M G, FT3, CBC, TSH, ADIFF, GFR, FT4, BMP, FERR, ANEU, FES ####[place] [address]#### [id number] ####[place] [address] RBC 3.80 10 6/mcL Low 4.04-6.13 [facility] ([place]) Comment on above: Performed By: #### M G, FT3, CBC, TSH, ADIFF, GFR, FT4, BMP, FERR, ANEU, FES ####[place] [address]#### [id number] ####[place] [address] WBC 14.1 10 3/mcL High 4.6-10.8 [facility] ([place] Comment on above: Performed By: #### M G, FT3, CBC, TSH, ADIFF, GFR, FT4, BMP, FERR, ANEU, FES ####[place] [address]#### 251330 ####[place] [address] Partha 03-09-2024 Ferritin [Mass/Vol] 179.0 ng/mL Normal 26.0-388.0 [facility] ([place]) Comment on above: Performed By: #### M G, FT3, CBC, TSH, ADIFF, GFR, FT4, BMP, FERR, ANEU, FES ####[place] [address]#### [id number] ####[place] [address] FESon 03-09-2024 Iron [Mass/Vol] 19 ug/dL Low 65-175 [facility] ([place]) Comment on above: Performed By: #### M G, FT3, CBC, TSH, ADIFF, GFR, FT4, BMP, FERR, ANEU, FES ####[place] [address]#### [id number] ####[place] [address] Iron Sat 9 % Normal [facility] ([place]) Comment on above: Performed By: #### M G, FT3, CBC, TSH, ADIFF, GFR, FT4, BMP, FERR, ANEU, FES ####[place] [address]#### [id number] ####[place] [address] TIBC 211 mcg/dL Low 250-450 [facility] ([place]) Comment on above: Performed By: #### M G, FT3, CBC, TSH, ADIFF, GFR, FT4, BMP, FERR, ANEU, FES ####[place] [address]#### [id number] ####[place] [address] FT3on 03-09-2024 Free T3 [Mass/Vol] 1.68 pg/mL Low 2.30-4.00 [facility] ([place] Comment on above: Performed By: #### M G, FT3, CBC, TSH, ADIFF, GFR, FT4, BMP, FERR, ANEU, FES ####[place] [address]#### [id number] ####[place] [address] FT4on 03-09-2024 Free T4 [Mass/Vol] 0.87 ng/dL Normal 0.76-1.46 [facility] ([place]) Comment on above: Performed By: #### M G, FT3, CBC, TSH, ADIFF, GFR, FT4, BMP, FERR, ANEU, FES ####[place] [address] [place], [place] [address]#### [id number] ####[place] [address] LABORATORYOrdered By: SYSTEM SYSTEM on 03-09-2024 Basophil, Absolute 0.1 103/mcL Normal 0.0 - 0.2 10^3/mcL AO Workflow SS Basophils/100 WBC (Bld) 0.5 % Normal 0.0 - 2.5 % AO Workflow SS Calcium [Mass/Vol] 8.5 mg/dL Normal 8.4 - 10. 2 mg/dL AO ADM SS Chloride [Moles/Vol] 103 mmol/L Normal 98 - 10 7 mmol/L AO ADM SS CO2 [Moles/Vol] 23 mmol/L Normal 22 - 29 mmol/L AO ADM SS Creatinine [Mass/Vol] 2.73 mg/dL High 0.70 - 1.30 mg/dL AO ADM SS Electrolyte Balance 9.0 mEq/L Normal 4.0 - 15 .0 mEq/L AO ADM SS Eosinophil, Absolute 0.5 103/mcL High 0.0 - 0 .4 10^3/mcL AO Workflow SS Eosinophils/100 WBC (Bld) 3.6 % Normal 0.0 - 7.0 % AO Workflow SS Erythrocyte distribution width (RBC) [Ratio] 15.6 % High 11.5 - 14.5 % AO Workflow SS Ferritin [Mass/Vol] 179.0 ng/mL Normal 26.0 - 388.0 ng/mL AO ADM SS Free T3 [Mass/Vol] 1.68 pg/mL Low 2.30 - 4.00 pg/mL AO ADM SS Free T4 [Mass/Vol] 0.87 ng/dL Normal 0.76 - 1.46 ng/dL AO ADM SS GFR/1.73 sq M.predicted among blacks MDRD (S/P/Bld) [Vol rate/Area] 31 ml/min/1.73sqm Invalid Interpretation Code AO Chemistry S Comment on above: Interpretive Data: GFR Population mean for , Non- Americans Ages 20-29 = 116 mL/min/1.73 sq.m. Ages 30-39 = 107 mL/min/1.73 sq.m. Ages 40-49 = 99 mL/min/1.73 sq.m. Ages 50-59 = 93 mL/min/1.73 sq.m. Ages 60-69 = 85 mL/min/1.73 sq.m. Ages 70+ = 75 mL/min/1.73 sq.m. Chronic Kidney Disease: Less than 60 mL/min/1.73 square meters End Stage Renal Disease: Less than 15 mL/min/1.73 square meters GFR/1.73 sq M.predicted among non-blacks MDRD (S/P/Bld) [Vol rate/Area] 25 ml/min/1.73sqm Invalid Interpretation Code AO Chemistry S Comment on above: Interpretive Data: GFR Population mean for , Non- Americans Ages 20-29 = 116 mL/min/1.73 sq.m. Ages 30-39 = 107 mL/min/1.73 sq.m. Ages 40-49 = 99 mL/min/1.73 sq.m. Ages 50-59 = 93 mL/min/1.73 sq.m. Ages 60-69 = 85 mL/min/1.73 sq.m. Ages 70+ = 75 mL/min/1.73 sq.m. Chronic Kidney Disease: Less than 60 mL/min/1.73 square meters End Stage Renal Disease: Less than 15 mL/min/1.73 square meters Glucose [Mass/Vol] 267 mg/dL High 70 - 105 mg/dL AO ADM SS Hematocrit (Bld) [Volume fraction] 29.8 % Low 42.0 - 52.0 % AO Workflow SS Hemoglobin (Bld) [Mass/Vol] 9.8 G/dL Low 14.0 - 18.0 G/dL AO Workflow SS Iron [Mass/Vol] 19 ug/dL Low 65 - 175 mcg/dL AO ADM SS Iron binding capacity [Mass/Vol] 211 mcg/dL Low 250 - 450 mcg/dL AO ADM SS Iron Sat 9 % Invalid Interpretation Code AO ADM SS Lymphocyte, Absolute 1.9 103/mcL Normal 0.8 - 3 .9 10^3/mcL AO Workflow SS Lymphocytes/100 WBC (Bld) 13.1 % Normal 10.0 - 50.0 % AO Workflow SS Magnesium [Mass/Vol] 1.7 mg/dL Low 1.8 - 2 .4 mg/dL AO ADM SS MCH (RBC) [Entitic mass] 25.9 pg Low 27.0 - 31.2 pg AO Workflow SS MCHC 33.0 G/dL Normal 31.8 - 35.4 G/dL AO Workflow SS MCV (RBC) [Entitic vol] 78.6 fL Low 80.0 - 94.0 fL AO Workflow SS Monocyte, Absolute 1.2 103/mcL High 0.2 - 1.0 10^3/mcL AO Workflow SS Monocytes/100 WBC (Bld) 8.3 % Normal 1.7 - 13.0 % AO Workflow SS Neutrophil, Absolute 10.5 103/mcL High 2.9 - 6 .2 10^3/mcL AO Workflow SS Neutrophils/100 WBC (Bld) 74.5 % Normal 37.0 - 80.0 % AO Workflow SS Platelet mean volume (Bld) [Entitic vol] 8.6 fL Normal 7.4 - 10.4 fL AO Workflow SS Platelets (Bld) [#/Vol] 300 103/mcL Normal 130 - 400 10^3/mcL AO Workflow SS Potassium [Moles/Vol] 4.5 mmol/L Normal 3.5 - 5.1 mmol/L AO ADM SS RBC (Bld) [#/Vol] 3.80 106/mcL Low 4.04 - 6.13 10^6/mcL AO Workflow SS Sodium [Moles/Vol] 135 mmol/L Low 136 - 145 mmol/L AO ADM SS TSH Qn 0.80 m[IU]/L Normal 0.36 - 3.74 mcIU/mL AO ADM SS Urea nitrogen [Mass/Vol] 47 mg/dL High 7 - 18 mg/dL AO ADM SS Urea nitrogen/Creatinine [Mass ratio] 17 ratio Normal 7 - 27 ratio AO ADM SS WBC (Bld) [#/Vol] 14.1 103/mcL High 4.6 - 10.8 10^3/mcL AO Workflow SS LABORATORYOrdered By: YAS Raza CONTRIBUTOR_SYSTEM on 03-09-2024 HbA1c (Bld) [Mass fraction] % High 4.8-5.6 [facility]outs Comment on above: Result Comment: Ve rified by repeat analysis Prediabetes: 5.7 - 6.4 Diabetes: >6.4 Glycemic control for adults with diabetes: <7.0 Performed At: [facility] [place] [id number] [place], [place] [id number] Farrah Mclaughlin PhD Ph:[phone] MGon 03-09-2024 Magnesium [Mass/Vol] 1.7 mg/dL Low 1.8-2.4 [facility] ([place]) Comment on above: Performed By: #### M G, FT3, CBC, TSH, ADIFF, GFR, FT4, BMP, FERR, ANEU, FES ####[address] [address]#### [id number] ####[address] [address] TSHon 03-09-2024 TSH Qn 0.80 m[IU]/L Normal 0.36-3.74 [facility] ([place]) Comment on above: Performed By: #### M G, FT3, CBC, TSH, ADIFF, GFR, FT4, BMP, FERR, ANEU, FES ####[place] [id number]#### [id number] ####[address] [address] .Auto Diffon 03-08-2024 Basophil, Absolute 0.1 10 3/mcL Normal 0.0-0.2 [facility] ([place]) Comment on above: Performed By: #### A DIFF, ANEU, MORPH, GFR, DOMITILA, MDW, MG, PHV, CBC, TROPHS, CMP ####[place] [address] [place], [place] [address] Basophils/100 WBC (Bld) 0.8 % Normal 0.0-2.5 [facility] ([place]) Comment on above: Performed By: #### A DIFF, ANEU, MORPH, GFR, DOMITILA, MDW, MG, PHV, CBC, TROPHS, CMP ####[facility] [place], [place] [address] Eosinophil, Absolute 0.5 10 3/mcL High 0.0-0.4 [facility] ([place]) Comment on above: Performed By: #### A DIFF, ANEU, MORPH, GFR, DOMITILA, MDW, MG, PHV, CBC, TROPHS, CMP ####[place] [address] [place], [place] [address] Eosinophils/100 WBC (Bld) 4.0 % Normal 0.0-7.0 [facility] ([place]) Comment on above: Performed By: #### A DIFF, ANEU, MORPH, GFR, DOMITILA, MDW, MG, PHV, CBC, TROPHS, CMP ####[place] [address] [place], [place] [address] Lymphocyte, Absolute 1.6 10 3/mcL Normal 0.8-3.9 [facility] ([place]) Comment on above: Performed By: #### A DIFF, ANEU, MORPH, GFR, DOMITILA, MDW, MG, PHV, CBC, TROPHS, CMP ####[place] [address] [place], [place] [address] Lymphocytes/100 WBC (Bld) 12.2 % Normal 10.0-50.0 [facility] ([place]) Comment on above: Performed By: #### A DIFF, ANEU, MORPH, GFR, DOMITILA, MDW, MG, PHV, CBC, TROPHS, CMP ####[place] [address] [place], [place] [address] Monocyte, Absolute 0.8 10 3/mcL Normal 0.2-1.0 [facility] ([place]) Comment on above: Performed By: #### A DIFF, ANEU, MORPH, GFR, DOMITILA, MDW, MG, PHV, CBC, TROPHS, CMP ####[place] [address] [place], [place] [address] Monocytes/100 WBC (Bld) 5.8 % Normal 1.7-13.0 [facility] ([place]) Comment on above: Performed By: #### A DIFF, ANEU, MORPH, GFR, DOMITILA, MDW, MG, PHV, CBC, TROPHS, CMP ####[place] [address] [place], [place] [address] Neutrophils/100 WBC (Bld) 77.2 % Normal 37.0-80.0 [facility] ([place]) Comment on above: Performed By: #### A DIFF, ANEU, MORPH, GFR, DOMITILA, MDW, MG, PHV, CBC, TROPHS, CMP ####[place] [address] [place], [place] [address] .GFRon 03-08-2024 GFR Non- 22 ml/min/1.73sqm Normal [facility] ([place]) Comment on above: Result Comment: GFR Population mean for , Non- Americans Ages 20-29 = 116 mL/min/1.73 sq.m. Ages 30-39 = 107 mL/min/1.73 sq.m. Ages 40-49 = 99 mL/min/1.73 sq.m. Ages 50-59 = 93 mL/min/1.73 sq.m. Ages 60-69 = 85 mL/min/1.73 sq.m. Ages 70+ = 75 mL/min/1.73 sq.m.Chronic Kidney Disease: Less than 60 mL/min/1.73 square metersEnd Stage Renal Disease: Less than 15 mL/min/1.73 square meters Performed By: #### A DIFF, ANEU, MORPH, GFR, DOMITILA, MDW, MG, PHV, CBC, TROPHS, CMP ####[place] [address] [place], [place] [address] GFR 27 ml/min/1.73sqm Normal [facility] ([place]) Comment on above: Result Comment: GFR Population mean for , Non- Americans Ages 20-29 = 116 mL/min/1.73 sq.m. Ages 30-39 = 107 mL/min/1.73 sq.m. Ages 40-49 = 99 mL/min/1.73 sq.m. Ages 50-59 = 93 mL/min/1.73 sq.m. Ages 60-69 = 85 mL/min/1.73 sq.m. Ages 70+ = 75 mL/min/1.73 sq.m.Chronic Kidney Disease: Less than 60 mL/min/1.73 square metersEnd Stage Renal Disease: Less than 15 mL/min/1.73 square meters Performed By: #### A DIFF, ANEU, MORPH, GFR, DOMITILA, MDW, MG, PHV, CBC, TROPHS, CMP ####[place] [address] [place], [place] [address] .MDWon 03-08-2024 Monocyte Distribution Width 19.79 Normal 0.00-20.00 [facility] ([place]) Comment on above: Result Comment: For ED adult patients suspected of sepsis, MDW<=20.0 does not rule out sepsis or risk of sepsis Performed By: #### A DIFF, ANEU, MORPH, GFR, DOMITILA, MDW, MG, PHV, CBC, TROPHS, CMP ####[place] [address] [place] [id number] .Morphon 03-08-2024 Platelet Estimate Normal Normal [facility] ([place]) Comment on above: Performed By: #### A DIFF, ANEU, MORPH, GFR, DOMITILA, MDW, MG, PHV, CBC, TROPHS, CMP ####[place] [address] [place] [address] .NEUABSon 03-08-2024 Neutrophil, Absolute 10.3 10 3/mcL High 2.9-6.2 [facility] ([place]) Comment on above: Performed By: #### A DIFF, ANEU, MORPH, GFR, DOMITILA, MDW, MG, PHV, CBC, TROPHS, CMP ####[place] [address] [place] [address] .Urinalysis Microscopic (AO) on 03-08-2024 UA RBC 0-5 Abnormal None Seen [facility] ([place]) Comment on above: Performed By: #### U AMICAO, UA ####[place] [address] [place] [address] UA Squam Epithelial 0-5 Abnormal None Seen [facility] ([place]) Comment on above: Performed By: #### U AMICAO, UA ####[place] [address] [place] [address] UA WBC 0-5 Abnormal None Seen [facility] ([place]) Comment on above: Performed By: #### U AMICAO, UA ####[place] [address] [place] [address] ACTONon 03-08-2024 Acetone (s) Negative Normal Negative [facility] ([place]) Comment on above: Performed By: #### A DIFF, ANEU, MORPH, GFR, DOMITILA, MDW, MG, PHV, CBC, TROPHS, CMP ####[place] [address] [place], [place] [address] CBCon 03-08-2024 Erythrocyte distribution width (RBC) [Ratio] 15.7 % High 11.5-14.5 [facility] ([place]) Comment on above: Performed By: #### A DIFF, ANEU, MORPH, GFR, DOMITILA, MDW, MG, PHV, CBC, TROPHS, CMP ####[address], [place] [address] Hematocrit (Bld) [Volume fraction] 34.1 % Low 42.0-52.0 [facility] ([place]) Comment on above: Performed By: #### A DIFF, ANEU, MORPH, GFR, DOMITILA, MDW, MG, PHV, CBC, TROPHS, CMP ####[address], [place] [address] Hgb 11.2 G/dL Low 14.0-18.0 [facility] ([place]) Comment on above: Performed By: #### A DIFF, ANEU, MORPH, GFR, DOMITILA, MDW, MG, PHV, CBC, TROPHS, CMP ####[address], [place] [address] MCH (RBC) [Entitic mass] 26.0 pg Low 27.0-31.2 [facility] ([place]) Comment on above: Performed By: #### A DIFF, ANEU, MORPH, GFR, DOMITILA, MDW, MG, PHV, CBC, TROPHS, CMP ####[address], [place] [address] MCHC 32.9 G/dL Normal 31.8-35.4 [facility] ([place]) Comment on above: Performed By: #### A DIFF, ANEU, MORPH, GFR, DOMITILA, MDW, MG, PHV, CBC, TROPHS, CMP ####[address], [place] [address] MCV (RBC) [Entitic vol] 79.2 fL Low 80.0-94.0 [facility] ([place]) Comment on above: Performed By: #### A DIFF, ANEU, MORPH, GFR, DOMITILA, MDW, MG, PHV, CBC, TROPHS, CMP ####[address], [place] [address] Platelet 338 10 3/mcL Normal 130-400 [facility] ([place]) Comment on above: Performed By: #### A DIFF, ANEU, MORPH, GFR, DOMITILA, MDW, MG, PHV, CBC, TROPHS, CMP ####[address], [place] [address] Platelet mean volume (Bld) [Entitic vol] 8.7 fL Normal 7.4-10.4 [facility] ([place]) Comment on above: Performed By: #### A DIFF, ANEU, MORPH, GFR, DOMITILA, MDW, MG, PHV, CBC, TROPHS, CMP ####[address] [place] [address], [place] [address] RBC 4.30 10 6/mcL Normal 4.04-6.13 [facility] ([place]) Comment on above: Performed By: #### A DIFF, ANEU, MORPH, GFR, DOMITILA, MDW, MG, PHV, CBC, TROPHS, CMP ####[address] [place] [address], [place] [address] WBC 13.3 10 3/mcL High 4.6-10.8 [facility] ([place]) Comment on above: Performed By: #### A DIFF, ANEU, MORPH, GFR, DOMITILA, MDW, MG, PHV, CBC, TROPHS, CMP ####[address] [place] [address], [place] [address] CKon 03-08-2024 CK [Catalytic activity/Vol] 172 U/L Normal 39-308 [facility] ([place]) Comment on above: Performed By: #### C K ####[address] [place] [address], [place] [address] CMPon 03-08-2024 Albumin Level 2.9 G/dL Low 3.5-5.0 [facility] ([place]) Comment on above: Performed By: #### A DIFF, ANEU, MORPH, GFR, DOMITILA, MDW, MG, PHV, CBC, TROPHS, CMP ####[address] [place] [address], [place] [address] Albumin/Globulin [Mass ratio] 0.6 {ratio} Low 1.1-2.5 [facility] ([place]) Comment on above: Performed By: #### A DIFF, ANEU, MORPH, GFR, DOMITILA, MDW, MG, PHV, CBC, TROPHS, CMP ####[address] [place] [address], [place] [address] ALP [Catalytic activity/Vol] 133 U/L Normal 40-135 [facility] ([place]) Comment on above: Performed By: #### A DIFF, ANEU, MORPH, GFR, DOMITILA, MDW, MG, PHV, CBC, TROPHS, CMP ####[place] [address] [place] [address], [place] [address] ALT [Catalytic activity/Vol] 18 U/L Normal 16-63 [facility] ([place]) Comment on above: Performed By: #### A DIFF, ANEU, MORPH, GFR, DOMITILA, MDW, MG, PHV, CBC, TROPHS, CMP ####[place] [address] [place] [address], [place] [address] AST [Catalytic activity/Vol] 11 U/L Normal 10-40 [facility] ([place]) Comment on above: Performed By: #### A DIFF, ANEU, MORPH, GFR, DOMITILA, MDW, MG, PHV, CBC, TROPHS, CMP ####[place] [address] [place] [address], [place] [address] Bili Total 0.4 mg/dL Normal 0.2-1.0 [facility] ([place]) Comment on above: Result Comment: Use of this assay is not recommended for patients undergoing treatment with eltrombopag due to the potential for falsely elevated results. Performed By: #### A DIFF, ANEU, MORPH, GFR, DOMITILA, MDW, MG, PHV, CBC, TROPHS, CMP ####[place] [address] [place] [address], [place] [address] BUN/Creatinine Ratio 17 ratio Normal 7-27 [facility] ([place]) Comment on above: Performed By: #### A DIFF, ANEU, MORPH, GFR, DOMITILA, MDW, MG, PHV, CBC, TROPHS, CMP ####[place] [address] [place] [address], [place] [address] Calcium [Mass/Vol] 8.6 mg/dL Normal 8.4-10.2 [facility] ([place]) Comment on above: Performed By: #### A DIFF, ANEU, MORPH, GFR, DOMITILA, MDW, MG, PHV, CBC, TROPHS, CMP ####[place] [address] [place] [address], [place] [address] Chloride [Moles/Vol] 98 mmol/L Normal 98-107 [facility] ([place]) Comment on above: Performed By: #### A DIFF, ANEU, MORPH, GFR, DOMITILA, MDW, MG, PHV, CBC, TROPHS, CMP ####[place] [address] [place] [address], [place] [address] CO2 [Moles/Vol] 24 mmol/L Normal 22-29 [facility] ([place]) Comment on above: Performed By: #### A DIFF, ANEU, MORPH, GFR, DOMITILA, MDW, MG, PHV, CBC, TROPHS, CMP ####[place] [address] [place] [address], [place] [address] Creatinine [Mass/Vol] 3.08 mg/dL High 0.70-1.30 [facility] ([place]) Comment on above: Performed By: #### A DIFF, ANEU, MORPH, GFR, DOMITILA, MDW, MG, PHV, CBC, TROPHS, CMP ####[place] [address] [place] [address], [place] [address] Electrolyte Balance 11.0 mEq/L Normal 4.0-15.0 [facility] ([place]) Comment on above: Performed By: #### A DIFF, ANEU, MORPH, GFR, DOMITILA, MDW, MG, PHV, CBC, TROPHS, CMP ####[facility] [place] [address], [place] [address] Globulin 4.9 G/dL Normal [facility] ([place]) Comment on above: Performed By: #### A DIFF, ANEU, MORPH, GFR, DOMITILA, MDW, MG, PHV, CBC, TROPHS, CMP ####[place] [address] [place] [address], [place] [address] Glucose [Mass/Vol] 492 mg/dL Critically abnormal 70-105 [facility] ([place]) Comment on above: Performed By: #### A DIFF, ANEU, MORPH, GFR, DOMITILA, MDW, MG, PHV, CBC, TROPHS, CMP ####[place] [address] [place] [address], [place] [address] Potassium [Moles/Vol] 5.3 mmol/L High 3.5-5.1 [facility] ([place]) Comment on above: Performed By: #### A DIFF, ANEU, MORPH, GFR, DOMITILA, MDW, MG, PHV, CBC, TROPHS, CMP ####[place] [address] [place] [address], [place] [address] Sodium [Moles/Vol] 133 mmol/L Low 136-145 [facility] ([place]) Comment on above: Performed By: #### A DIFF, ANEU, MORPH, GFR, DOMITILA, MDW, MG, PHV, CBC, TROPHS, CMP ####[place] [address] [place] [address], [place] [address] Total Protein 7.8 G/dL Normal 6.4-8.2 [facility] ([place]) Comment on above: Performed By: #### A DIFF, ANEU, MORPH, GFR, DOMITILA, MDW, MG, PHV, CBC, TROPHS, CMP ####[place] [address] [place] [address], [place] [address] Urea nitrogen [Mass/Vol] 52 mg/dL High 7-18 [facility] ([place]) Comment on above: Performed By: #### A DIFF, ANEU, MORPH, GFR, DOMITILA, MDW, MG, PHV, CBC, TROPHS, CMP ####[place] [address] [place] [address], [place] [address] LABORATORYOrdered By: Joy Lomas on 03-08-2024 Appearance (U) Clear (03/08/24 2:13 PM) Normal Clear AO Auto Urine SS Bilirubin Ql (U) Negative (03/08/24 2:13 PM) Normal Negative AO Auto Urine SS Color (U) Yellow (03/08/24 2:13 PM) Normal AO Auto Urine SS Glucose Test strip (U) [Mass/Vol] >=1000 mg/dL Invalid Interpretation Code Negative AO Auto Urine SS Hemoglobin Auto test strip (U) [Mass/Vol] Small *ABN* (03/08/24 2:13 PM) Invalid Interpretation Code Negative AO Auto Urine SS Ketones Ql (U) Negative Normal Negative AO Auto Urine SS UA Leuk Est Negative (03/08/24 2:13 PM) Normal Negative AO Auto Urine SS UA Nitrite Negative (03/08/24 2:13 PM) Normal Negative AO Auto Urine SS UA pH 5.5 (03/08/24 2:13 PM) Normal 5.0 - 8.0 AO Auto Urine SS UA Protein >=300 mg/dL Invalid Interpretation Code Negative AO Auto Urine SS UA RBC 0-5 /HPF Invalid Interpretation Code None Seen AO Auto Urine SS UA Spec Grav 1.025 (03/08/24 2:13 PM) Normal 1.015-1.02 5 AO Auto Urine SS UA Specimen Type Clean Catch (03/08/24 2:13 PM) Normal AO Auto Urine SS UA Squam Epithelial 0-5 /HPF Invalid Interpretation Code None Seen AO Auto Urine SS UA Urobilinogen 0.2 E.U./dL Normal 0.2-1.0 AO Auto Urine SS WBC LM.HPF (Urine sed) [#/Area] 0-5 /HPF Invalid Interpretation Code None Seen AO Auto Urine SS Ketones [Mass/Vol] Negative Normal Negative AO Rap id Testing SS pH (Bld) 7.291 [pH] Low 7.380 - 7.460 AO Rapid Comm SS Platelet Estimate Normal (03/08/24 12:53 PM) Normal AO Hematology S LABORATORYOrdered By: SYSTEM SYSTEM on 03-08-2024 Albumin BCP dye [Mass/Vol] 2.9 G/dL Low 3.5 - 5.0 G/dL AO ADM SS Albumin/Globulin [Mass ratio] 0.6 {ratio} Low 1.1 - 2.5 ratio AO ADM SS ALP [Catalytic activity/Vol] 133 U/L Normal 40 - 135 U/L AO ADM SS ALT With P-5'-P [Catalytic activity/Vol] 18 U/L Normal 16 - 63 U/L AO ADM SS AST With P-5'-P [Catalytic activity/Vol] 11 U/L Normal 10 - 40 U/L AO ADM SS Basophil, Absolute 0.1 103/mcL Normal 0.0 - 0.2 10^3/mcL AO Workflow SS Basophils/100 WBC (Bld) 0.8 % Normal 0.0 - 2.5 % AO Workflow SS Bilirubin [Mass/Vol] 0.4 mg/dL Normal 0.2 - 1 .0 mg/dL AO ADM SS Comment on above: Interpretive Data: U se of this assay is not recommended for patients undergoing treatment with eltrombopag due to the potential for falsely elevated results. CK [Catalytic activity/Vol] 172 U/L Normal 39 - 308 U/L AO ADM SS Eosinophil, Absolute 0.5 103/mcL High 0.0 - 0 .4 10^3/mcL AO Workflow SS Eosinophils/100 WBC (Bld) 4.0 % Normal 0.0 - 7.0 % AO Workflow SS Erythrocyte distribution width (RBC) [Ratio] 15.7 % High 11.5 - 14.5 % AO Workflow SS Globulin 4.9 G/dL Invalid Interpretation Code AO ADM SS Hematocrit (Bld) [Volume fraction] 34.1 % Low 42.0 - 52.0 % AO Workflow SS Hemoglobin (Bld) [Mass/Vol] 11.2 G/dL Low 14.0 - 18.0 G/dL AO Workflow SS Lymphocyte, Absolute 1.6 103/mcL Normal 0.8 - 3 .9 10^3/mcL AO Workflow SS Lymphocytes/100 WBC (Bld) 12.2 % Normal 10.0 - 50.0 % AO Workflow SS MCH (RBC) [Entitic mass] 26.0 pg Low 27.0 - 31.2 pg AO Workflow SS MCHC 32.9 G/dL Normal 31.8 - 35.4 G/dL AO Workflow SS MCV (RBC) [Entitic vol] 79.2 fL Low 80.0 - 94.0 fL AO Workflow SS Monocyte distribution width Auto (Bld) [Entitic vol] 19.79 1 Normal 0.00 - 20.00 AO Workflow SS Comment on above: Result Comment: For ED adult patients suspected of sepsis, MDW<=20.0 does not rule out sepsis or risk of sepsis Monocyte, Absolute 0.8 103/mcL Normal 0.2 - 1.0 10^3/mcL AO Workflow SS Monocytes/100 WBC (Bld) 5.8 % Normal 1.7 - 13.0 % AO Workflow SS Neutrophil, Absolute 10.3 103/mcL High 2.9 - 6 .2 10^3/mcL AO Workflow SS Neutrophils/100 WBC (Bld) 77.2 % Normal 37.0 - 80.0 % AO Workflow SS Platelet mean volume (Bld) [Entitic vol] 8.7 fL Normal 7.4 - 10.4 fL AO Workflow SS Platelets (Bld) [#/Vol] 338 103/mcL Normal 130 - 400 10^3/mcL AO Workflow SS Protein [Mass/Vol] 7.8 G/dL Normal 6.4 - 8.2 G/dL AO ADM SS RBC (Bld) [#/Vol] 4.30 106/mcL Normal 4.04 - 6.13 10^6/mcL AO Workflow SS Troponin I.cardiac DL <= 0.01 ng/mL [Mass/Vol] 20 ng/L Normal 0 - 76 ng/L AO ADM SS Comment on above: Interpretive Data: H igh Sensitive Troponin I Reference Ranges: Female: 0-51 ng/L Male: 0-76 ng/L Testing performed on [employer] using a homogeneous sandwich chemiluminescent immunoassay based on Trusper technology. WBC (Bld) [#/Vol] 13.3 103/mcL High 4.6 - 10.8 10^3/mcL AO Workflow SS MGon 03-08-2024 Magnesium [Mass/Vol] 1.6 mg/dL Low 1.8-2.4 [facility] ([place]) Comment on above: Performed By: #### A DIFF, ANEU, MORPH, GFR, DOMITILA, MDW, MG, PHV, CBC, TROPHS, CMP ####[place] [address] [place] [address], [place] [address] PHVon 03-08-2024 pH Venous 7.291 Low 7.380-7.46 0 [facility] ([place]) Comment on above: Performed By: #### A DIFF, ANEU, MORPH, GFR, DOMITILA, MDW, MG, PHV, CBC, TROPHS, CMP ####[place] [address] [place] [address], [place] [address] TROPHSon 03-08-2024 High Sensitivity Troponin I 20 ng/L Normal 0-76 [facility] ([place]) Comment on above: Result Comment: High Sensitive Troponin I Reference Ranges:Female: 0-51 ng/LMale: 0-76 ng/LTesting performed on Stay[employer] using a homogeneous sandwich chemiluminescent immunoassay based on Trusper technology. Performed By: #### A DIFF, ANEU, MORPH, GFR, DOMITILA, MDW, MG, PHV, CBC, TROPHS, CMP ####[place] [address] [place] [address], [place] [address] UAon 03-08-2024 Color (U) Yellow Normal [facility] ([place]) Comment on above: Performed By: #### U AMICAO, UA ####[place] [address] [place] [address], [place] [address] Glucose (U) [Mass/Vol] mg/dL Abnormal Negative [facility] ([place]) Comment on above: Performed By: #### U AMICAO, UA ####[place] [address] [place] [address], [place] [address] Ketones Ql (U) Negative Normal Negative [facility] ([place]) Comment on above: Performed By: #### U AMICAO, UA ####[place] [address] [place] [address], [place] [address] UA Appear Clear Normal Clear [facility] ([place]) Comment on above: Performed By: #### U AMICAO, UA ####[place] [address] [place] [address], [place] [address] UA Blood Small Abnormal Negative [facility] ([place]) Comment on above: Performed By: #### U AMICAO, UA ####[place] [address] [place] [address], [place] [address] UA Leuk Est Negative Normal Negative [facility] ([place]) Comment on above: Performed By: #### U AMICAO, UA ####[place] [address] [place] [address], [place] [address] UA Nitrite Negative Normal Negative Pending sale to [facility]) Comment on above: Performed By: #### U AMICAO, UA ####[place] [address] [place] [address], [place] [address] UA pH 5.5 Normal 5.0 - 8.0 Pending sale to [facility]) Comment on above: Performed By: #### U AMICAO, UA ####[place] [address] [place] [address], [place] [address] UA Protein >=300 Abnormal Negative [facility] ([place]) Comment on above: Performed By: #### U AMICAO, UA ####[place] [address] [place] [address], [place] [address] UA Spec Grav 1.025 Normal 1.015-1.02 5 [facility] ([place]) Comment on above: Performed By: #### U AMICAO, UA ####[place] [address] [place] [address], [place] [address] UA Specimen Type Clean Catch Normal Pending sale to [facility]) Comment on above: Performed By: #### U AMICAO, UA ####[place] [address] [place] [address], [place] [address] UA Urobilinogen 0.2 E.U./dL Normal 0.2-1.0 [facility] ([place]) Comment on above: Performed By: #### U AMICAO, UA ####[place] [address] [place] [address], [place] [address] Urobilinogen (U) [Mass/Vol] Negative Normal Negative [facility] ([place]) Comment on above: Performed By: #### U AMICAO, UA ####[place] [address] [place] [address], [place] [address] XR CHEST 1 VIEWon 03-08-2024 XR CHEST 1 VIEW Normal [facility] ([place]) XR KNEE THREE VIEWS LEFTon 0 03-08-2024 XR KNEE THREE VIEWS LEFT Normal Pending sale to [facility]) LABORATORYOrdered By: Cherelle Garsia on 07-07-2023 Appearance (U) Clear (07/07/23 6:46 PM) Invalid Interpretation Code Clear AO Auto Urine SS Bacteria LM.HPF (Urine sed) [#/Area] 2 /[HPF] Invalid Interpretation Code AO Auto Urine SS Bilirubin Ql (U) Negative (07/07/23 6:46 PM) Invalid Interpretation Code Negative AO Auto Urine SS Color (U) Yellow (07/07/23 6:46 PM) Invalid Interpretation Code AO Auto Urine SS Glucose Test strip (U) [Mass/Vol] 100 mg/dL Invalid Interpretation Code Negative AO Auto Urine SS Hemoglobin Auto test strip (U) [Mass/Vol] Moderate *ABN* (07/07/23 6:46 PM) Invalid Interpretation Code Negative AO Auto Urine SS Ketones Ql (U) Negative Invalid Interpretation Code Negative AO Auto Urine SS UA Leuk Est Trace *ABN* (07/07/23 6:46 PM) Invalid Interpretation Code Negative AO Auto Urine SS UA Nitrite Negative (07/07/23 6:46 PM) Invalid Interpretation Code Negative AO Auto Urine SS UA pH 7.0 (07/07/23 6:46 PM) Invalid Interpretation Code 5.0 - 8.0 AO Auto Urine SS UA Protein >=300 mg/dL Invalid Interpretation Code Negative AO Auto Urine SS UA RBC LOADED /HPF Invalid Interpretation Code None Seen AO Auto Urine SS UA Spec Grav 1.025 (07/07/23 6:46 PM) Invalid Interpretation Code 1.015-1.02 5 AO Auto Urine SS UA Specimen Type Clean Catch (07/07/23 6:46 PM) Invalid Interpretation Code AO Auto Urine SS UA Squam Epithelial 0-5 /HPF Invalid Interpretation Code None Seen AO Auto Urine SS UA Urobilinogen 0.2 E.U./dL Invalid Interpretation Code 0.2-1.0 AO Auto Urine SS WBC LM.HPF (Urine sed) [#/Area] LOADED /HPF Invalid Interpretation Code None Seen AO Auto Urine SS LABORATORYOrdered By: SYSTEM SYSTEM on 07-07-2023 Basophil, Absolute 0.1 103/mcL Invalid Interpretation Code 0.0 - 0.2 10^3/mcL AO Workflow SS Basophils/100 WBC (Bld) 0.9 % Invalid Interpretation Code 0.0 - 2.5 % AO Workflow SS Calcium [Mass/Vol] 8.2 mg/dL Invalid Interpretation Code 8.4 - 10.2 mg/dL AO ADM SS Chloride [Moles/Vol] 103 mmol/L Invalid Interpretation Code 98 - 107 mmol/L AO ADM SS CO2 [Moles/Vol] 28 mmol/L Invalid Interpretation Code 22 - 29 mmol/L AO ADM SS Creatinine [Mass/Vol] 2.80 mg/dL Invalid Interpretation Code 0.70 - 1.30 mg/dL AO ADM SS Electrolyte Balance 5.0 mEq/L Invalid Interpretation Code 4.0 - 15.0 mEq/L AO ADM SS Eosinophil, Absolute 0.5 103/mcL Invalid Interpretation Code 0.0 - 0.4 10^3/mcL AO Workflow SS Eosinophils/100 WBC (Bld) 3.5 % Invalid Interpretation Code 0.0 - 7.0 % AO Workflow SS Erythrocyte distribution width (RBC) [Ratio] 15.9 % Invalid Interpretation Code 11.5 - 14.5 % AO Workflow SS GFR/1.73 sq M.predicted among blacks MDRD (S/P/Bld) [Vol rate/Area] 30 ml/min/1.73sqm Invalid Interpretation Code AO Chemistry S Comment on above: Interpretive Data: GFR Population mean for , Non- Americans Ages 20-29 = 116 mL/min/1.73 sq.m. Ages 30-39 = 107 mL/min/1.73 sq.m. Ages 40-49 = 99 mL/min/1.73 sq.m. Ages 50-59 = 93 mL/min/1.73 sq.m. Ages 60-69 = 85 mL/min/1.73 sq.m. Ages 70+ = 75 mL/min/1.73 sq.m. Chronic Kidney Disease: Less than 60 mL/min/1.73 square meters End Stage Renal Disease: Less than 15 mL/min/1.73 square meters GFR/1.73 sq M.predicted among non-blacks MDRD (S/P/Bld) [Vol rate/Area] 25 ml/min/1.73sqm Invalid Interpretation Code AO Chemistry S Comment on above: Interpretive Data: GFR Population mean for , Non- Americans Ages 20-29 = 116 mL/min/1.73 sq.m. Ages 30-39 = 107 mL/min/1.73 sq.m. Ages 40-49 = 99 mL/min/1.73 sq.m. Ages 50-59 = 93 mL/min/1.73 sq.m. Ages 60-69 = 85 mL/min/1.73 sq.m. Ages 70+ = 75 mL/min/1.73 sq.m. Chronic Kidney Disease: Less than 60 mL/min/1.73 square meters End Stage Renal Disease: Less than 15 mL/min/1.73 square meters Glucose [Mass/Vol] 241 mg/dL Invalid Interpretation Code 70 - 105 mg/dL AO ADM SS Hematocrit (Bld) [Volume fraction] 33.9 % Invalid Interpretation Code 42.0 - 52.0 % AO Workflow SS Hemoglobin (Bld) [Mass/Vol] 11.0 G/dL Invalid Interpretation Code 14.0 - 18.0 G/dL AO Workflow SS Lymphocyte, Absolute 2.5 103/mcL Invalid Interpretation Code 0.8 - 3.9 10^3/mcL AO Workflow SS Lymphocytes/100 WBC (Bld) 18.8 % Invalid Interpretation Code 10.0 - 50.0 % AO Workflow SS MCH (RBC) [Entitic mass] 25.5 pg Invalid Interpretation Code 27.0 - 31.2 pg AO Workflow SS MCHC 32.4 G/dL Invalid Interpretation Code 31.8 - 35.4 G/dL AO Workflow SS MCV (RBC) [Entitic vol] 78.7 fL Invalid Interpretation Code 80.0 - 94.0 fL AO Workflow SS Monocyte distribution width Auto (Bld) [Entitic vol] 17.43 1 Invalid Interpretation Code 0.00 - 20.00 AO Workflow SS Comment on above: Result Comment: For ED adult patients suspected of sepsis, MDW<=20.0 does not rule out sepsis or risk of sepsis Monocyte, Absolute 1.0 103/mcL Invalid Interpretation Code 0.2 - 1.0 10^3/mcL AO Workflow SS Monocytes/100 WBC (Bld) 7.4 % Invalid Interpretation Code 1.7 - 13.0 % AO Workflow SS Neutrophil, Absolute 9.4 103/mcL Invalid Interpretation Code 2.9 - 6.2 10^3/mcL AO Workflow SS Neutrophils/100 WBC (Bld) 69.4 % Invalid Interpretation Code 37.0 - 80.0 % AO Workflow SS Platelet mean volume (Bld) [Entitic vol] 8.4 fL Invalid Interpretation Code 7.4 - 10.4 fL AO Workflow SS Platelets (Bld) [#/Vol] 263 103/mcL Invalid Interpretation Code 130 - 400 10^3/mcL AO Workflow SS Potassium [Moles/Vol] 4.9 mmol/L Invalid Interpretation Code 3.5 - 5.1 mmol/L AO ADM SS RBC (Bld) [#/Vol] 4.31 106/mcL Invalid Interpretation Code 4.04 - 6.13 10^6/mcL AO Workflow SS Sodium [Moles/Vol] 136 mmol/L Invalid Interpretation Code 136 - 145 mmol/L AO ADM SS Urea nitrogen [Mass/Vol] 32 mg/dL Invalid Interpretation Code 7 - 18 mg/dL AO ADM SS Urea nitrogen/Creatinine [Mass ratio] 11 ratio Invalid Interpretation Code 7 - 27 ratio AO ADM SS WBC (Bld) [#/Vol] 13.5 103/mcL Invalid Interpretation Code 4.6 - 10.8 10^3/mcL AO Workflow SS Basic metabolic 1998 panelon 05-09-2023 Anion gap [Moles/Vol] 9 mmol/L [facility] Calcium [Mass/Vol] 9.0 mg/dL 8.6 - 10. 3 mg/dL [facility] Chloride [Moles/Vol] 105 mmol/L 98 - 11 0 mmol/L [facility] CO2 [Moles/Vol] 23 mmol/L 20 - 32 mmol/L [facility] Creatinine [Mass/Vol] 3.32 mg/dL High 0.60 - 1.29 mg/dL [facility] GFR/1.73 sq M.predicted among non-blacks MDRD (S/P/Bld) [Vol rate/Area] 22 mL/min/{1.73_m2} Low > OR = 60 mL/min/1.7 3m2 [facility] Comment on above: The eGFR is based on the CKD-EPI 2020 equation. To calculate the new eGFR from a previous Creatinine or Cystatin C result, go to https://www.kidney.org/professionals/ kdoqi/gfr%5Fcalculator Glucose [Mass/Vol] 238 mg/dL High 65 - 99 mg/dL [facility] Comment on above: Fasting reference interval For someone without known diabetes, a glucose value >125 mg/dL indicates that they may have diabetes and this should be confirmed with a follow-up test. Interpretation and review of laboratory results Abnormal [facility] Potassium [Moles/Vol] 5.0 mmol/L 3.5 - 5.3 mmol/L [facility] Sodium [Moles/Vol] 137 mmol/L 135 - 146 mmol/L [facility] Urea nitrogen [Mass/Vol] 40 mg/dL High 7 - 25 mg/dL [facility] Urea nitrogen/Creatinine [Mass ratio] 12 mg/mg [facility] CR Chest PA/LATon 01-10-2022 CR Chest PA/LAT Patient Name: GURINDER JARVIS Diagnostic Radiology ACCESSION EXAM DATE/TIME PROCEDURE ORDERING PROVIDER [id number] 01/10/2022 15:58 EST CR Chest PA and LAT [facility] ADAM HOLLY S CPT code 44636 Reason For Exam (CR Chest PA and LAT) chronic cough in smoker Report CHEST, PA and LATERAL: INDICATION: Chronic cough COMPARISON: No previous studies are available for comparison. PA and lateral views of the chest were obtained. The heart is normal in size. The mediastinal silhouette is normal. The lungs are clear. There are no effusions or infiltrates. There is no pleural thickening. Arthritic changes of the spine are present. IMPRESSION: Negative chest. Report Dictated on Final Dictating Physician: DO DOWNEY ALFRED Signed Date and Time: 01/10/2022 4:05 pm Signed by: DO DOWNEY ALFRED Transcribed Date and Time: 01/10/2022 4:06 Normal [facility] LABORATORYOrdered By: Tori Kinsey on 12-13-2021 ADMITTED TO INTENSIVE CARE UNIT FOR CONDITION OF INTEREST:FIND:PT:^PATIE NT:ORD: No (12/13/21 11:57 PM) Invalid Interpretation Code AO Auto Urine SS EMPLOYED IN A HEALTHCARE SETTING:FIND:PT:^PATIEN T:ORD: No (12/13/21 11:57 PM) Invalid Interpretation Code AO Auto Urine SS FIRST TEST FOR CONDITION OF INTEREST:FIND:PT:^PATIE NT:ORD: Unknown (12/13/21 11:57 PM) Invalid Interpretation Code AO Auto Urine SS HAS SYMPTOMS RELATED TO CONDITION OF INTEREST:FIND:PT:^PATIE NT:ORD: Yes (12/13/21 11:57 PM) Invalid Interpretation Code AO Auto Urine SS Illness or injury onset date and time [id number] Invalid Interpretation Code AO Auto Urine SS Patient was hospitalized because of this condition No (12/13/21 11:57 PM) Invalid Interpretation Code AO Auto Urine SS status Not (12/13/21 11:57 PM) Invalid Interpretation Code AO Auto Urine SS RESIDES IN A CONGREGATE CARE SETTING:FIND:PT:^ANA T:ORD: No (12/13/21 11:57 PM) Invalid Interpretation Code AO Auto Urine SS SARS-CoV-2 (COVID-19) RNA MAZIN+probe Ql (Resp) Positive *ABN* (12/13/21 11:57 PM) Invalid Interpretation Code Negative AO Auto Urine SS SARS-CoV-2 (COVID-19) RNA MAZIN+probe Ql (Unsp spec) Positive results are indicative of the presence of SARS-CoV-2 RNA; clinical correlation with patient history and other diagnostic information is necessary to determine patient infection status. Positive results do not rule out bacterial infection or co-infection with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 114.[address] TORI JOHNSON MD [address] [place] [address] 05-08-2024 05:24-0400 Body weight 32.71 kg/m2 DR TORI JOHNSON MD [address] [place] [address] 05-08-2024 04:10-0400 Diastolic Blood Pressure Non-Invasive 82 mm[Hg] JIMENA GARDNERT DO [facility] 05-08-2024 04:10-0400 Heart rate 78 /min JIMENA GARDNERT DO [facility] 05-08-2024 04:10-0400 Respiratory rate 16 /min JIMENA FROMMELT DO [facility] 05-08-2024 04:10-0400 Systolic Blood Pressure Non-Invasive 170 mm[Hg] JIMENA FROMMELT DO [facility] 05-07-2024 23:23-0400 Diastolic Blood Pressure Non-Invasive 80 mm[Hg] JIMENA JESUSITAMELT DO [facility] 05-07-2024 23:23-0400 Heart rate 84 /min JIMENA FROMMELT DO [facility] 05-07-2024 23:23-0400 Respiratory rate 14 /min JIMENA FROMMELT DO [facility] 05-07-2024 23:23-0400 Systolic Blood Pressure Non-Invasive 152 mm[Hg] JIMENA FROMMELT DO [facility] 05-07-2024 17:53-0400 Body weight 119.7 kg JIMENA FROMMELT DO [facility] 05-07-2024 17:30-0400 Diastolic Blood Pressure Non-Invasive 97 mm[Hg] JIMENA FROMMELT DO [facility] 05-07-2024 17:30-0400 Heart rate 82 /min JIMENA FROMMELT DO [facility] 05-07-2024 17:30-0400 Respiratory rate 16 /min JIMENA FROMMELT DO [facility] 05-07-2024 17:30-0400 Systolic Blood Pressure Non-Invasive 175 mm[Hg] JIMENA FROMMELT DO [facility] 05-07-2024 15:30-0400 Heart rate 82 /min JIMENA FROMMELT DO [facility] 05-07-2024 13:55-0400 Heart rate 88 /min JIMENA FROMMELT DO [facility] 05-07-2024 11:12-0400 Reason For Taking VItal Signs JIMENA FROMMELT DO [facility] 05-07-2024 10:43-0400 Blood Pressure Cuff Size JIMENA FROMMELT DO [facility] 05-07-2024 10:43-0400 Blood Pressure Location JIMENA GARDNERTri[facility] 05-07-2024 10:43-0400 Blood Pressure Method JIMENA G[facility]ri[facility] 05-07-2024 10:43-0400 Body temperature 95.18 [degF] JIMENA [employer] [facility] 05-07-2024 10:43-0400 Body weight 122 kg JIMENA GARDNERTri[facility] 05-07-2024 10:43-0400 Heart rate 93 /min [facility] 05-06-2024 19:01-0400 Body temperature 98.6 [degF] JOAN MCKEON MD [facility] 05-06-2024 19:01-0400 Diastolic Blood Pressure Non-Invasive 65 mm[Hg] JOAN MCKEON MD [facility] 05-06-2024 19:01-0400 Heart rate 87 /min JOAN MCKEON MD [facility] 05-06-2024 19:01-0400 Respiratory rate 16 /min JOAN MCKEON MD [facility] 05-06-2024 19:01-0400 Systolic Blood Pressure Non-Invasive 114 mm[Hg] JOAN MCKEON MD [facility] 05-06-2024 16:27-0400 Heart rate 80 /min JOAN MCKEON MD [facility] 05-06-2024 16:25-0400 Heart rate 80 /min JOAN MCKEON MD [facility] 05-06-2024 14:57-0400 Blood Pressure Cuff Size JOAN MCKEON MD [facility] 05-06-2024 14:57-0400 Blood Pressure Location JOAN MCKEON MD [facility] 05-06-2024 14:57-0400 Blood Pressure Method JOAN MCKEON MD [facility] 05-06-2024 14:57-0400 Body temperature 98.96 [degF] JOAN MCKEON MD [facility] 05-06-2024 14:57-0400 Diastolic Blood Pressure Non-Invasive 70 mm[Hg] JOAN MCKEON MD [facility] 05-06-2024 14:57-0400 Heart rate 81 /min JOAN MCKEON MD [facility] 05-06-2024 14:57-0400 Reason For Taking VItal Signs JOAN MCKEON MD [facility] 05-06-2024 14:57-0400 Respiratory rate 16 /min JOAN MCKEON MD [facility] 05-06-2024 14:57-0400 Systolic Blood Pressure Non-Invasive 118 mm[Hg] JOAN MCKEON MD [facility] 05-06-2024 10:35-0400 Blood Pressure Cuff Size JOAN MCKEON MD [facility] 05-06-2024 10:35-0400 Blood Pressure Location JOAN MCKEON MD [facility] 05-06-2024 10:35-0400 Blood Pressure Method JOAN MCKEON MD [facility] 05-06-2024 10:35-0400 Body temperature 98.42 [degF] JOAN MCKEON MD [facility] 05-06-2024 10:35-0400 Diastolic Blood Pressure Non-Invasive 72 mm[Hg] JOAN MCKEON MD [facility] 05-06-2024 10:35-0400 Heart rate 80 /min JOAN MCKEON MD [facility] 05-06-2024 10:35-0400 Reason For Taking VItal Signs JOAN MCKEON MD [facility] 05-06-2024 10:35-0400 Respiratory rate 16 /min JOAN MCKEON MD [facility] 05-06-2024 10:35-0400 Systolic Blood Pressure Non-Invasive 120 mm[Hg] JOAN MCKEON MD [facility] 05-06-2024 08:05-0400 Heart rate 86 /min JOAN MCKEON MD [facility] 05-06-2024 08:05-0400 Reason For Taking VItal Signs JOAN MCKEON MD [facility] 05-06-2024 06:57-0400 Blood Pressure Cuff Size JOAN MCKEON MD [facility] 05-06-2024 06:57-0400 Blood Pressure Location JOAN MCKEON MD [facility] 05-06-2024 06:57-0400 Blood Pressure Method JOAN MCKEON MD [facility] 05-06-2024 06:57-0400 Heart rate 86 /min JOAN MCKEON MD [facility] 05-05-2024 16:08-0400 Heart rate 81 /min JOAN MCKEON MD [facility] 05-05-2024 16:08-0400 Mean blood pressure 69 mm[Hg] JOAN MCKEON MD [facility] 05-05-2024 15:53-0400 Heart rate 80 /min JOAN MCKEON MD [facility] 05-05-2024 15:53-0400 Mean blood pressure 86 mm[Hg] JOAN MCKEON MD [facility] 05-05-2024 15:38-0400 Mean blood pressure 81 mm[Hg] JOAN MCKEON MD [facility] 05-05-2024 15:08-0400 Body temperature 97.16 [degF] JOAN MCKEON MD [facility] 05-05-2024 14:55-0400 Respiratory Rate - Anes 14 br/min JOAN MCKEON MD [facility] 05-05-2024 14:50-0400 Body temperature 99.18 [degF] JOAN MCKEON MD [facility] 05-05-2024 14:50-0400 Respiratory Rate - Anes 16 br/min JOAN MCKEON MD [facility] 05-05-2024 14:45-0400 Body temperature 99.14 [degF] JOAN MCKEON MD [facility] 05-05-2024 14:40-0400 Body temperature 99.16 [degF] JOAN MCKEON MD [facility] 04-26-2024 12:18-0400 Diastolic blood pressure 76 mm[Hg] JOAN MCKEON MD [facility] 04-26-2024 12:18-0400 Mean blood pressure 91 mm[Hg] JOAN MCKEON MD [facility] 04-26-2024 12:18-0400 Systolic blood pressure 125 mm[Hg] JOAN MCKEON MD [facility] 04-25-2024 12:25-0400 SaO2% (BldA) [Mass fraction] 94.0 % JOAN MCKEON MD [facility] 04-25-2024 12:04-0400 Body temperature 97.34 [degF] JOAN MCKEON MD [facility] 04-25-2024 07:56-0400 Body temperature 96.8 [degF] JOAN MCKEON MD [facility] 04-22-2024 12:23-0400 Body height 188 cm JOAN MCKEON MD [facility] 04-22-2024 12:23-0400 Body weight 125 kg JOAN MCKEON MD [facility] 04-22-2024 12:23-0400 Body weight 35.37 kg/m2 JOAN MCKEON MD [facility] 04-21-2024 23:27-0400 Signs/Symptoms Transfusion Reaction JOAN MCKEON MD [facility] 04-21-2024 23:15-0400 Signs/Symptoms Transfusion Reaction JOAN MCKEON MD [facility] 04-21-2024 22:27-0400 Signs/Symptoms Transfusion Reaction No JOAN MCKEON MD [facility] 04-21-2024 22:27-0400 Diastolic blood pressure 89 mm[Hg] JOAN MCKEON MD [facility] 04-21-2024 22:27-0400 Systolic blood pressure 127 mm[Hg] JOAN MCKEON MD [facility] 04-21-2024 22:21-0400 Diastolic blood pressure 89 mm[Hg] JOAN MCKEON MD [facility] 04-21-2024 22:21-0400 Systolic blood pressure 127 mm[Hg] JOAN MCKEON MD [facility] 04-21-2024 21:51-0400 Diastolic blood pressure 66 mm[Hg] JOAN MCKEON MD [facility] 04-21-2024 21:51-0400 Systolic blood pressure 124 mm[Hg] JOAN MCKEON MD [facility] 04-20-2024 04:13-0400 SaO2% (BldA) [Mass fraction] 92.2 % JOAN MCKEON MD [facility] 04-20-2024 03:13-0400 Body temperature 96.8 [degF] JOAN MCKEON MD [facility] 04-19-2024 11:33-0400 Diastolic blood pressure 86 mm[Hg] JOAN MCKEON MD [facility] 04-19-2024 11:33-0400 Mean blood pressure 102 mm[Hg] JOAN MCKEON MD [facility] 04-19-2024 11:33-0400 Systolic blood pressure 146 mm[Hg] JOAN MCKEON MD [facility] 04-19-2024 10:04-0400 Diastolic blood pressure 67 mm[Hg] JOAN MCKEON MD [facility] 04-19-2024 10:04-0400 Mean blood pressure 96 mm[Hg] JOAN MCKEON MD [facility] 04-19-2024 10:04-0400 Systolic blood pressure 150 mm[Hg] JOAN MCKEON MD [facility] 2024 02:11-0400 SaO2% (BldA) [Mass fraction] 97.5 % JOAN MCKEON MD [facility] 2024 00:16-0400 SaO2% (BldA) [Mass fraction] 98.8 % JOAN MCKEON MD [facility] 04-16-2024 01:20-0400 Body temperature 95.36 [degF] JOAN MCKEON MD [facility] 04-16-2024 00:43-0400 Diastolic blood pressure 62 mm[Hg] MARTÍENZ ACUNA MD [facility] 04-16-2024 00:43-0400 Heart rate 105 /min MARTÍNEZ ACUNA MD [facility] 04-16-2024 00:43-0400 Respiratory rate 18 /min MARTÍNEZ ACUNA MD [facility] 04-16-2024 00:43-0400 Systolic blood pressure 94 mm[Hg] MARTÍNEZ ACUNA MD [facility] 04-16-2024 00:13-0400 Blood Pressure Cuff Size MARTÍNEZ ACUNA MD [facility] 04-16-2024 00:13-0400 Blood Pressure Location MARTÍNEZ ACUNA MD [facility] 04-16-2024 00:13-0400 Blood Pressure Method MARTÍNEZ ACUNA MD [facility] 04-16-2024 00:13-0400 Diastolic Blood Pressure Non-Invasive 67 mm[Hg] MARTÍNEZ ACUNA MD [facility] 04-16-2024 00:13-0400 Heart rate 109 /min MARTÍNEZ ACUNA MD [facility] 04-16-2024 00:13-0400 Respiratory rate 18 /min MARTÍNEZ ACUNA MD [facility] 04-16-2024 00:13-0400 Systolic Blood Pressure Non-Invasive 105 mm[Hg] MARTÍNEZ ACUNA MD [facility] 04-16-2024 00:09-0400 Blood Pressure Cuff Size MARTÍNEZ ACUNA MD [facility] 04-16-2024 00:09-0400 Blood Pressure Location MARTÍNEZ ACUNA MD [facility] 04-16-2024 00:09-0400 Blood Pressure Method MARTÍNEZ ACUNA MD [facility] 04-16-2024 00:09-0400 Diastolic Blood Pressure Non-Invasive 74 mm[Hg] MARTÍNEZ ACUNA MD [facility] 04-16-2024 00:09-0400 Heart rate 106 /min MARTÍNEZ ACUNA MD [facility] 04-16-2024 00:09-0400 Respiratory rate 18 /min MARTÍNEZ ACUNA MD [facility] 04-16-2024 00:09-0400 Systolic Blood Pressure Non-Invasive 111 mm[Hg] MARTÍNEZ ACUNA MD [facility] 04-15-2024 23:59-0400 Blood Pressure Cuff Size MARTÍNEZ ACUNA MD [facility] 04-15-2024 23:59-0400 Blood Pressure Location MARTÍNEZ ACUNA MD [facility] 04-15-2024 23:59-0400 Blood Pressure Method MARTÍNEZ ACUNA MD [facility] 04-15-2024 23:59-0400 Diastolic Blood Pressure Non-Invasive 71 mm[Hg] MARTÍNEZ ACUNA MD [facility] 04-15-2024 23:59-0400 Systolic Blood Pressure Non-Invasive 119 mm[Hg] MARTÍNEZ ACUNA MD [facility] 04-15-2024 22:40-0400 SaO2% (BldA) [Mass fraction] 96.1 % MARTÍNEZ ACUNA MD [facility] 04-15-2024 20:35-0400 Body temperature 96.98 [degF] MARTÍNEZ ACUNA MD [facility] 04-15-2024 19:35-0400 Body height 188 cm MARTÍNEZ ACUNA MD [facility] 04-15-2024 19:35-0400 Body temperature 96.98 [degF] MARTÍNEZ ACUNA MD [facility] 04-15-2024 19:35-0400 Body weight 127.3 kg MARTÍNEZ ACUNA MD [facility] 04-15-2024 19:35-0400 Reason For Taking VItal Signs MARTÍNEZ ACUNA MD [facility] 04-06-2024 16:42-0400 Diastolic Blood Pressure Non-Invasive 77 mm[Hg] MATHEW REICHFIELD DO [facility] 04-06-2024 16:42-0400 Heart rate 105 /min MATHEW REICHFIELD DO [facility] 04-06-2024 16:42-0400 Respiratory rate 16 /min MATHEW REICHFIELD DO [facility] 04-06-2024 16:42-0400 Systolic Blood Pressure Non-Invasive 137 mm[Hg] MATHEW REICHFIELD DO [facility] 04-06-2024 13:19-0400 Body temperature 98.96 [degF] [facility] 04-06-2024 13:19-0400 Diastolic Blood Pressure Non-Invasive 91 mm[Hg] MATHEW REICHFIELD DO [facility] 04-06-2024 13:19-0400 Heart rate 117 /min MATHEW REICHFIELD DO [facility] 04-06-2024 13:19-0400 Mean blood pressure 99 mm[Hg] MATHEW REICHFIELD DO [facility] 04-06-2024 13:19-0400 Reason For Taking VItal Signs MATHEW REICHFIELD DO [facility] 04-06-2024 13:19-0400 Respiratory rate 16 /min MATHEW REICHFIELD DO [facility] 04-06-2024 13:19-0400 Systolic Blood Pressure Non-Invasive 108 mm[Hg] MATHEW REICHFIELD DO [facility] 04-06-2024 12:20-0400 Body temperature 98.24 [degF] MATHEW REICHFIELD DO [facility] 04-06-2024 12:20-0400 Body weight 127.5 kg MATHEW REICHFIELD DO [facility] 04-06-2024 12:20-0400 Diastolic Blood Pressure Non-Invasive 73 mm[Hg] MATHEW REICHFIELD DO [facility] 04-06-2024 12:20-0400 Heart rate 120 /min MATHEW REICHFIELD DO [facility] 04-06-2024 12:20-0400 Respiratory rate 20 /min MATHEW REICHFIELD DO [facility] 04-06-2024 12:20-0400 Systolic Blood Pressure Non-Invasive 107 mm[Hg] MATHEW MALONE DO [facility] 03-11-2024 11:02-0400 Body temperature 98.06 [degF] BRAVO KAPPER [employer] [facility] 03-11-2024 11:02-0400 Diastolic Blood Pressure Non-Invasive 77 mm[Hg] BRAVO KAPPER [employer] [facility] 03-11-2024 11:02-0400 Heart rate 111 /min BRAVO KAPPER [employer] [facility] 03-11-2024 11:02-0400 Respiratory rate 16 /min BRAVO KAPPER [employer] [facility] 03-11-2024 11:02-0400 Systolic Blood Pressure Non-Invasive 128 mm[Hg] BRAVO KAPPER [employer] [facility] 03-11-2024 06:38-0400 Body temperature 97.88 [degF] BRAVO KAPPER [employer] [facility] 03-11-2024 06:38-0400 Diastolic Blood Pressure Non-Invasive 73 mm[Hg] BRAVO KAPPER [employer] [facility] 03-11-2024 06:38-0400 Heart rate 93 /min BRAVO KAPPER [employer] [facility] 03-11-2024 06:38-0400 Respiratory rate 16 /min BRAVO KAPPER [employer] [facility] 03-11-2024 06:38-0400 Systolic Blood Pressure Non-Invasive 120 mm[Hg] BRAVO KAPPER [employer] [facility] 03-11-2024 03:50-0400 Body temperature 98.06 [degF] BRAVO KAPPER [employer] [facility] 03-11-2024 03:50-0400 Diastolic Blood Pressure Non-Invasive 94 mm[Hg] BRAVO KAPPER [employer] [facility] 03-11-2024 03:50-0400 Heart rate 98 /min BRAVO KAPPER [employer] [facility] 03-11-2024 03:50-0400 Respiratory rate 16 /min BRAVO KAPPER [employer] [facility] 03-11-2024 03:50-0400 Systolic Blood Pressure Non-Invasive 152 mm[Hg] BRAVO KAPPER [employer] [facility] 03-11-2024 00:23-0400 Heart rate 106 /min BRAVO KAPPER [employer] [facility] 03-10-2024 19:13-0400 Heart rate 109 /min BRAVO KAPPER [employer] [facility] 03-10-2024 16:49-0400 Blood Pressure Location BRAVO KAPPER [employer] [facility] 03-10-2024 16:49-0400 Blood Pressure Method BRAVO K[employer]PER [employer] [facility] 03-10-2024 15:33-0400 Heart rate 104 /min BRAVO KAPPER [employer] [facility] 03-10-2024 02:56-0400 Heart rate 108 /min BRAVO KAPPER [employer] [facility] 03-09-2024 22:52-0400 Heart rate 117 /min BRAVO POPEER [employer] [facility] 03-09-2024 19:08-0400 Heart rate 110 /min BRAVO KAPPER [employer] [facility] 03-08-2024 16:58-0400 Body height 188 cm BRAVO KAPPER [employer] [facility] 03-08-2024 16:58-0400 Body weight 128.4 kg BRAVO KAPPER [employer] [facility] 03-08-2024 16:58-0400 Body weight 36.33 kg/m2 BRAVO KAPPER [employer] [facility] 03-08-2024 12:47-0400 Blood Pressure Method BRAVO K[employer]PER [employer] [facility] 07-07-2023 18:17-0400 Body temperature 97.52 [degF] CLEM BOOKER MD [facility] 07-07-2023 18:17-0400 Diastolic Blood Pressure Non-Invasive 99 1 CLEM BOOKER MD [facility] 07-07-2023 18:17-0400 Heart rate 110 /min CLEM BOOKER MD [facility] 07-07-2023 18:17-0400 Respiratory rate 15 /min CLEM BOOKER MD [facility] 07-07-2023 18:17-0400 Systolic Blood Pressure Non-Invasive 170 1 CLEM BOOKER MD [facility] 01-08-2023 09:52-0500 Body height 188 cm Phoebe Adam [employer] Work Phone: [employer] [facility] 01-08-2023 09:52-0500 Body mass index (BMI) [Ratio] 38.39 kg/m2 Phoebe Adam [employer] Work Phone: [employer] [facility] 01-08-2023 09:52-0500 Body weight 135.63 kg Phoebe Adam [employer] Work Phone: [employer] [facility] 01-08-2023 09:52-0500 Diastolic blood pressure 76 mm[Hg] Phoebe Adam [employer]ATION [employer] Work Phone: [employer] [facility] 01-08-2023 09:52-0500 Heart rate 80 /min Phoebe Adam [employer]ATION [employer] Work Phone: [facility] 01-08-2023 09:52-0500 SaO2% (BldA) [Mass fraction] 95 % Phoebe Adam [employer] Work Phone: [employer] [facility] 01-08-2023 09:52-0500 Systolic blood pressure 120 mm[Hg] Phoebe Adam [employer]ATION [employer] Work Phone: [facility] 12-22-2022 14:06-0500 Body height 188 cm Tu Goetz MD Work Phone: [employer] [facility] 12-22-2022 14:06-0500 Body mass index (BMI) [Ratio] 35.95 kg/m2 Tu Goetz MD Work Phone: [facility] 12-22-2022 14:06-0500 Body temperature 97.81 [degF] Tu Goetz MD Work Phone: [employer] [facility] 12-22-2022 14:06-0500 Body weight 127.01 kg Tu Goetz MD Work Phone: [facility] 12-14-2021 00:18-0500 Diastolic blood pressure 84 mm[Hg] DR RAMON MIN MD [facility] 12-14-2021 00:18-0500 Systolic blood pressure 141 mm[Hg] DR RAMON MIN MD [facility] 12-13-2021 23:57-0500 Body temperature 99.14 [degF] DR RAMON MIN MD [facility] 12-13-2021 23:57-0500 Diastolic blood pressure 90 mm[Hg] DR RAMON MIN MD [facility] 12-13-2021 23:57-0500 Heart rate 122 /min DR RAMON MIN MD [facility] 12-13-2021 23:57-0500 Respiratory rate 25 /min DR RAMON MIN MD [facility] 12-13-2021 23:57-0500 Systolic blood pressure 153 mm[Hg] DR RAMON MIN MD [facility] 12-13-2021 23:17-0500 Body temperature 98.24 [degF] DR RAMON MIN MD [facility] 12-13-2021 23:17-0500 Diastolic blood pressure 80 mm[Hg] DR RAMON MIN MD [facility] 12-13-2021 23:17-0500 Heart rate 130 /min DR RAMON MIN MD [facility] 12-13-2021 23:17-0500 Respiratory rate 20 /min DR RAMON MIN MD [facility] 12-13-2021 23:17-0500 Systolic blood pressure 143 mm[Hg] DR RAMON MIN MD [facility] 09-04-2021 21:02-0400 Body temperature 97.2 [degF] Artie Jackson MD Work Phone: [facility] Work Phone: 09-04-2021 21:02-0400 Diastolic blood pressure 109 mm[Hg] Artie Jackson MD Work Phone: [facility] Work Phone: 09-04-2021 21:02-0400 Heart rate 111 /min Artie Jackson MD Work Phone: [facility] Work Phone: 09-04-2021 21:02-0400 Respiratory rate 20 /min Artie Jackson MD Work Phone: [facility] Work Phone: 09-04-2021 21:02-0400 SaO2% (BldA) [Mass fraction] 100 % Artie Jackson MD Work Phone: [facility] Work Phone: 09-04-2021 21:02-0400 Systolic blood pressure 178 mm[Hg] Artie Jackson MD Work Phone: [facility] Work Phone: 09-02-2021 14:41-0400 Body temperature 98.78 [degF] LATRELL MENDIOLA DO [facility] 09-02-2021 14:41-0400 Body weight 135.2 kg LATRELL MENDIOLA DO [facility] 09-02-2021 14:41-0400 Diastolic blood pressure 98 mm[Hg] LATRELL MENDIOLA DO [facility] 09-02-2021 14:41-0400 Heart rate 113 /min LATRELL MENDIOLA DO [facility] 09-02-2021 14:41-0400 Respiratory rate 18 /min LATRELL MENDIOLA DO [facility] 09-02-2021 14:41-0400 Systolic blood pressure 151 mm[Hg] LATRELL MENDIOLA DO [facility] 11-15-2020 10:15-0500 BP Diastolic 72 mm[Hg] Shashank Stef [employer] [facility] , [place] 11-15-2020 10:15-0500 BP [facility]stolic 147 mm[Hg[facility] [place] 11-15-2020 10:15-0500 Pulse (Heart Rate) 96 /min [facility] [place] 11-15-2020 10:15-0500 Pulse Oximetry 96 % [facility] [place] 11-15-2020 10:15-0500 Respiratory Rate 13 /min [facility] [place] 11-15-2020 10:04-0500 Body Temperature 98.91 [degF] [facility] [place] 11-15-2020 08:20-0500 BMI (Body Mass Index) 34.65 kg/m2 [facility] [place] 11-15-2020 08:20-0500 Body weight 122.43 kg [facility] [place] 11-15-2020 08:20-0500 Height 188 [facility] [place] 05-14-2020 10:31-0400 Body Temperature 98.01 [degF] Tuyet Miller [facility] , [place] 05-14-2020 10:31-0400 BP Diastolic 91 mm[Hg] Tuyet Miller [facility] , [place] 05-14-2020 10:31-0400 BP Systolic 122 mm[Hg] Tuyet Miller [facility] , [place] 05-14-2020 10:31-0400 Pulse (Heart Rate) 102 /min Tuyet Miller [facility], [place] 05-14-2020 10:31-0400 Pulse Oximetry 99 % Tuyet Miller [facility] , [place] 05-14-2020 07:55-0400 BMI (Body Mass Index) 33.77 kg/m2 Tuyet Miller [facility], [place] 05-14-2020 07:55-0400 Body weight 119.3 kg Tuyet Miller [facility] , [place] 05-14-2020 07:55-0400 Height 188 cm Tyuet Miller [facility] , [place] 05-14-2020 07:45-0400 Respiratory Rate 14 /min Tuyet Miller [facility] [place] Encounters Encounter Date Encounter Type Care Provider Facility Start: 09-08-2025 ambulatory Mary Alice Evangelista Facility:[facility] Start: 08-27-2025 ambulatory Phoebe Adam NP Facility :[facility] Start: 07-12-2025 End: 07-13-2025 Refill Artie Jackson MD Work Phone: [facility] Comment on above: Hyperlipidemia LDL g oal <70 Cardiomyopathy, unsp ecified type (HCC); Essential hypertension Start: 07-09-2025 End: 07-09-2025 Refill Srheya Olivera [employer] Work Phone: [facility] Start: 06-18-2025 End: 08-18-2025 Follow-up encounter Shreya Olivera [employer] Work Phone: [facility] Comment on above: Hemoglobin A1c, CBC auto differential, Basic metabolic panel Start: 06-16-2025 End: 06-16-2025 Office outpatient visit 25 minutes Shreya Olivera [employer]ATION [employer] [facility] [facility] Comment on above: Type 2 diabetes diane itus with diabetic polyneuropathy, with long-term current use of insulin (HCC) (Primary Dx); Chronic renal disease, stage IV (HCC); Low hemoglobin; Cardiomyopathy, unspecified type (HCC); 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); Essential hypertension; Hyperlipidemia LDL goal <70; Paroxysmal atrial fibrillation ([facility]); Open wound of skin Start: 06-16-2025 End: 06-18-2025 Refill Artie Jackson MD Work Phone: [facility] Comment on above: Type 2 diabetes diane itus with diabetic polyneuropathy, with long-term current use of insulin ([facility]) Start: 06-11-2025 End: 06-12-2025 Refill Shreyamar Olivera AUTOMATION TECH - QUAHO[employer]ER Work Phone: [facility] Start: 06-10-2025 End: 06-10-2025 Orders Only Phoebe Adam AUTOMATION TECH - QUAHOGGER Work Phone: [facility] Comment on above: Type 2 diabetes diane itus with diabetic polyneuropathy, with long-term current use of insulin ([facility]) Start: 05-21-2025 End: 05-21-2025 Refill Artie Jackson MD Work Phone: [facility] Start: 04-27-2025 End: 04-28-2025 Refill Shreya Bert AUTOMATION TECH - QUAHOGGER Work Phone: [facility] Comment on above: Diabetes mellitus wi th proteinuria (CMS/HCC) (HCC) (HCC); Type 2 diabetes mellitus with diabetic polyneuropathy, with long-term current use of insulin ([facility]) Start: 04-15-2025 End: 04-16-2025 Refill Artie Jackson MD Work Phone: [facility] Start: 03-16-2025 [facility] Facility: [facility] Start: 03-02-2025 End: 03-02-2025 Orders Only Phoebe Adam AUTOMATION TECH - QUAHOGGER Work Phone: [facility] Start: 02-17-2025 ambulatory ARTIE JACKSON [facility] Start: 02-10-2025 End: 02-15-2025 Evaluation and management of inpatient VIRIDINAA WILLIAM MD [facility] Start: 02-09-2025 End: 02-10-2025 Emergency department patient visit VIRIDIANA WILLIAM MD Facility:[facility] Start: 02-09-2025 End: 02-09-2025 ambulatory GARRICK VELASQUEZ [facility] Start: 02-05-2025 End: 02-05-2025 ambulatory Marielos uL RN [facility] Clinical Communication Start: 02-05-2025 End: 02-05-2025 Patient encounter procedure Marielos Lu RN [facility] Clinical Communication Start: 01-22-2025 End: 01-22-2025 Office outpatient visit 25 minutes Jose Morrison MD Work Phone: [facility] Comment on above: 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); Claire gangrene Start: 01-22-2025 End: 01-22-2025 ambulatory JOSE MORRISON [facility] Start: 01-22-2025 End: 01-29-2025 Telephone encounter [facility] Comment on above: Surgery Scheduling Start: 01-04-2025 End: 01-05-2025 Refill Phoebe Adam AUTOMATION TECH - QUAHOGGER Work Phone: [facility] Comment on above: Type 2 diabetes diane itus with diabetic polyneuropathy, with long-term current use of insulin (HCC) Start: 12-30-2024 ambulatory Satnam Galan Facility: [facility] Start: 12-09-2024 End: 12-15-2024 Telephone encounter Garrick Velasquez MD [facility] Comment on above: Surgery Scheduling Start: 12-09-2024 End: 12-09-2024 Office outpatient new 45 minutes Garrick Velasquez MD Work Phone: [facility] [place] Comment on above: Claire gangrene (P rimary Dx); 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; Gross hematuria; Chronic kidney disease, unspecified CKD stage Start: 12-09-2024 End: 12-09-2024 ambulatory [facility] Start: 11-26-2024 ambulatory Janel Dias NP Fa cility:[facility] Start: 11-26-2024 End: 12-19-2024 ambulatory [facility] Facility:[facility] Start: 11-19-2024 End: 11-20-2024 Refill Phoebe Adam AUTOMATION TECH - QUAHOGGER Work Phone: [facility] Start: 10-21-2024 End: 11-24-2024 Telephone encounter Garrick Velasquez MD [facility] Phone[facility] Comment on above: Cancelled Appointmen t Start: 10-15-2024 End: 10-18-2024 ambulatory [facility] Facility:[facility] Start: 09-22-2024 End: 09-22-2024 Office outpatient visit 25 minutes Phoebe Adam AUTOMATION TECH - QUAHOGGER Work Phone: [facility] Comment on above: Diabetes mellitus wi th proteinuria (CMS/HCC) (HCC) (HCC) (Primary Dx); Type 2 diabetes mellitus with diabetic polyneuropathy, with long-term current use of insulin (HCC); Encounter for diabetic foot exam (HCC); Paroxysmal atrial fibrillation (HCC); Cardiomyopathy, unspecified type (HCC); Chronic renal disease, stage IV (HCC); Class 1 obesity due to excess calories without serious comorbidity with body mass index (BMI) of 34.0 to 34.9 in adult; Cigarette nicotine dependence without complication; Essential hypertension; Hyperlipidemia LDL goal <70; Necrotizing fasciitis (HCC); Pressure injury of deep tissue of buttock, unspecified laterality; Screening for prostate cancer; Influenza vaccine refused Start: 09-22-2024 End: 09-22-2024 ambulatory PHOEBE ADAM [facility] Start: 09-17-2024 ambulatory Satnam Vásquezins Facility: [facility] Start: 09-17-2024 End: 09-18-2024 ambulatory [facility] Facility:[facility] Start: 09-11-2024 End: 09-11-2024 Refill Shreya Bridenthal AUTOMATION TECH - QUAHOGGER Work Phone: [facility] Comment on above: Essential hypertensi on Start: 08-18-2024 End: 08-18-2024 Orders Only Phoebe Bay Jair AUTOMATION TECH - QUAHOGGER Work Phone: [facility] Start: 08-10-2024 End: 08-11-2024 Refill Shreya Bridenthal AUTOMATION TECH - QUAHOGGER Work Phone: [facility] Comment on above: Essential hypertensi on (Primary Dx) Start: 06-18-2024 End: 06-30-2024 Evaluation and management of inpatient DR ILEANA RICO MD [facility] Start: 06-17-2024 ambulatory PHOEBE Bay JAIR AUTOMATION TECH-PRODUCT ENGINEER Facility:[facility] Start: 06-06-2024 End: 06-06-2024 Emergency department patient visit JIMENA GARDNERAlexis POSEY [facility] Start: 05-31-2024 End: 06-02-2024 Refill Artie Jackson MD Work Phone: [facility] Comment on above: Type 2 diabetes diane itus with diabetic polyneuropathy, with long-term current use of insulin (HCC) Start: 05-08-2024 End: 05-15-2024 Evaluation and management of inpatient DR TORI JOHNSON MD [facility] Start: 05-07-2024 End: 05-08-2024 Emergency department patient visit JIMENA HOGAN DO [facility] Start: 04-16-2024 End: 05-06-2024 Evaluation and management of inpatient JOAN MCKEON MD [facility] Start: 04-15-2024 End: 04-16-2024 Emergency department patient visit MARTÍNEZ ACUNA MD [facility] Start: 04-06-2024 End: 04-06-2024 Emergency department patient visit MATHEW MALONE DO [facility] Start: 04-02-2024 Refill Artie Jackson MD Work Phone: [facility] Start: 03-08-2024 End: 03-11-2024 ambulatory BRAVO PEOPLES AUTOMATION TECH-QUAHOGGER Facility:[facility] Start: 03-08-2024 End: 03-11-2024 Observation BRAVO PEOPLES AUTOMATION TECH-QUAHOGGER [facility] Start: 02-18-2024 Refill Shreya pratt AUTOMATION TECH - QUAHOGGER Work Phone: [facility] Start: 02-05-2024 Refill Artie Jackson MD Work Phone: [facility] Comment on above: Type 2 diabetes diane itus with diabetic polyneuropathy, with long-term current use of insulin ([facility]) ([facility]); Diabetic polyneuropathy associated with type 2 diabetes mellitus (CMS/HCC) (HCC); Diabetes mellitus with proteinuria (CMS/HCC) ([facility]) ([facility]) Start: 01-20-2024 Refill Phoebe Adam AUTOMATION TECH - QUAHOGGER Work Phone: [facility] Comment on above: Hyperlipidemia LDL g oal <70 Start: 01-01-2024 Refill Shreya Kendall santa AUTOMATION TECH - QUAHOGGER Work Phone: [facility] Start: 12-26-2023 Orders Only Phoebe Adam AUTOMATION TECH - QUAHOGGER Work Phone: [facility] Comment on above: Type 2 diabetes diane itus with diabetic polyneuropathy, with long-term current use of insulin (CMS/HCC) ([facility]); Chronic renal disease, stage IV ([facility]) Start: 12-16-2023 Refill Shreya Argueta santa AUTOMATION TECH - QUAHOGGER Work Phone: [facility] Comment on above: Type 2 diabetes diane itus with diabetic polyneuropathy, with long-term current use of insulin (CMS/HCC) (HCC); Diabetic polyneuropathy associated with type 2 diabetes mellitus (CMS/HCC) ([facility]); Diabetes mellitus with proteinuria (CMS/HCC) ([facility]) (HCC) Start: 10-18-2023 Refill Phoebe Adam AUTOMATION TECH - QUAHOGGER Work Phone: [facility] Comment on above: Type 2 diabetes diane itus with diabetic polyneuropathy, with long-term current use of insulin (CMS/HCC) (HCC); Diabetic polyneuropathy associated with type 2 diabetes mellitus (CMS/HCC) ([facility]) Start: 10-17-2023 Orders Only Phoebe Adam AUTOMATION TECH - QUAHOGGER Work Phone: [facility] Comment on above: Type 2 diabetes diane itus with diabetic polyneuropathy, with long-term current use of insulin (CMS/HCC) ([facility]) (Primary Dx); Chronic renal disease, stage IV ([facility]) Start: 10-03-2023 Orders Only Phoebe Adam AUTOMATION TECH - QUAHOGGER Work Phone: [facility] Start: 10-03-2023 Refill Shreya Argueta santa AUTOMATION TECH - QUAHOGGER Work Phone: [facility] Start: 08-26-2023 Refill Phoebe Adam AUTOMATION TECH - QUAHOGGER Work Phone: [facility] Start: 08-15-2023 Refill Artie Jackson MD Work Phone: [facility] Start: 07-30-2023 Refill Shreya pratt AUTOMATION TECH - QUAHOGGER Work Phone: [facility] Comment on above: Type 2 diabetes diane itus with diabetic polyneuropathy, with long-term current use of insulin ([facility]/HCC) (HCC); Diabetic polyneuropathy associated with type 2 diabetes mellitus (CMS/HCC) (HCC); Diabetes mellitus with proteinuria ([facility]/HCC) (HCC) Start: 07-30-2023 Telephone encounter Artie Ruiz MD Work Phone: [facility] Comment on above: other Start: 07-20-2023 Refill Phoebe Adam AUTOMATION TECH - QUAHOGGER Work Phone: [facility] Comment on above: Hyperlipidemia LDL g oal <70 Start: 07-12-2023 Refill Phoebe Adam AUTOMATION TECH - QUAHOGGER Work Phone: [facility] Start: 07-07-2023 End: 07-07-2023 Emergency department patient visit CLEM BOOKER MD [facility] Start: 07-05-2023 Refill Shreya pratt AUTOMATION TECH - QUAHOGGER Work Phone: [facility] Comment on above: Type 2 diabetes diane itus with diabetic polyneuropathy, with long-term current use of insulin ([facility]) (HCC); Diabetic polyneuropathy associated with type 2 diabetes mellitus ([facility]/HCC) (HCC); Diabetes mellitus with proteinuria ([facility]/HCC) ([facility]) Start: 07-03-2023 Telephone encounter Kasey Hankins [facility] Comment on above: Orders Start: 07-02-2023 Orders Only Phoebe Adam AUTOMATION TECH - QUAHOGGER Work Phone: [facility] Comment on above: Type 2 diabetes diane itus with diabetic polyneuropathy, with long-term current use of insulin (CMS/HCC) (HCC); Class 2 obesity due to excess calories without serious comorbidity with body mass index (BMI) of 38.0 to 38.9 in adult Start: 05-28-2023 Orders Only Phoebe Adam AUTOMATION TECH - QUAHOGGER Work Phone: [facility] Comment on above: Type 2 diabetes diane itus with diabetic polyneuropathy, with long-term current use of insulin (CMS/HCC) (HCC) (Primary Dx) Start: 05-18-2023 Telephone encounter Artie Ruiz MD Work Phone: [facility] Comment on above: Release of Informati on Start: 05-13-2023 Refill Shreya pratt AUTOMATION TECH - QUAHOGGER Work Phone: [facility] Comment on above: Type 2 diabetes diane itus with diabetic polyneuropathy, with long-term current use of insulin (CMS/HCC) (HCC); Diabetic polyneuropathy associated with type 2 diabetes mellitus (CMS/HCC) (HCC); Diabetes mellitus with proteinuria (CMS/HCC) (HCC) Start: 05-09-2023 Orders Only Shreya pratt AUTOMATION TECH - QUAHOGGER Work Phone: [facility] Start: 05-05-2023 Refill Shreya pratt AUTOMATION TECH - QUAHOGGER Work Phone: [facility] Comment on above: Type 2 diabetes diane itus with diabetic polyneuropathy, with long-term current use of insulin (CMS/HCC) (HCC) Start: 04-20-2023 Refill Phoebe Adam AUTOMATION TECH - QUAHOGGER Work Phone: [facility] Start: 04-06-2023 Telephone encounter Shreya monroe AUTOMATION TECH - QUAHOGGER Work Phone: [facility] Comment on above: Results Start: 03-21-2023 Orders Only Phoebe Adam AUTOMATION TECH - QUAHOGGER Work Phone: [facility] Comment on above: Diabetes mellitus wi th proteinuria (CMS/HCC) (HCC) (Primary Dx); Elevated serum creatinine Start: 03-20-2023 Refill Artie Jackson MD Work Phone: [facility] Start: 03-19-2023 Refill Phoebe Adam AUTOMATION TECH - QUAHOGGER Work Phone: [facility] Start: 01-22-2023 Ophthalmic examinati on and evaluation Phoebe Adam AUTOMATION TECH - QUAHOGGER Work Phone: [facility] Start: 01-22-2023 Refill Phoebe Adam AUTOMATION TECH - QUAHOGGER Work Phone: [facility] Comment on above: Type 2 diabetes diane itus with diabetic polyneuropathy, with long-term current use of insulin (CMS/HCC) ([facility]); Diabetic polyneuropathy associated with type 2 diabetes mellitus (CMS/HCC) ([facility]); Diabetes mellitus with proteinuria (CMS/HCC) ([facility]) [facility] ([facility] Start: 01-21-2023 Refill Artie Jackson MD Work Phone: [facility] Start: 01-10-2023 Orders Only Phoebe Adam AUTOMATION TECH - QUAHOGGER Work Phone: [facility] Comment on above: Diabetes mellitus wi th proteinuria (CMS/HCC) (HCC) (Primary Dx); Elevated serum creatinine; Type 2 diabetes mellitus with diabetic polyneuropathy, with long-term current use of insulin (CMS/HCC) ([facility]); Poorly controlled type 2 diabetes mellitus (CMS/HCC) ([facility]) Start: 01-08-2023 Lorna Jackson MD Work Phone: [facility] Start: 01-08-2023 End: 01-08-2023 Office outpatient visit 25 minutes Phoebe Adam AUTOMATION TECH - QUAHOGGER Work Phone: [facility] Comment on above: Type 2 diabetes diane itus with diabetic polyneuropathy, with long-term current use of insulin ([facility]) ([facility]) (Primary Dx); Diabetic polyneuropathy associated with type 2 diabetes mellitus ([facility]/HCC) (HCC); Diabetes mellitus with proteinuria ([facility]/HCC) ([facility]); Encounter for diabetic foot exam ([facility]); Essential hypertension; Hyperlipidemia LDL goal <70; Cigarette nicotine dependence without complication; Class 2 obesity due to excess calories without serious comorbidity with body mass index (BMI) of 38.0 to 38.9 in adult; Gastroesophageal reflux disease, unspecified whether esophagitis present; Screening for prostate cancer Start: 01-01-2023 Lorna Jackson MD Work Phone: [facility] Start: 12-22-2022 End: 12-22-2022 Office outpatient new 20 minutes Tu Goetz MD Work Phone: [facility] Comment on above: Charcot's joint of r ight foot; Type 2 diabetes mellitus with diabetic polyneuropathy, with long-term current use of insulin ([facility]) ([facility]); Diabetic polyneuropathy associated with type 2 diabetes mellitus ([facility]) ([facility]) Start: 12-22-2022 End: 12-22-2022 Subsequent hospital visit by physician Tu Goetz MD Work Phone: [facility] Radiology Comment on above: Right foot pain Start: 12-08-2022 Transcribe Orders Sania BORREGO Work Phone: [facility] ED Comment on above: Pain in right foot ( Primary Dx) Start: 12-07-2022 Orders Only Sania BORREGO Work Phone: [facility] Comment on above: Right foot pain (Paradise rachel Dx) Start: 11-22-2022 Lorna Jackson MD Work Phone: [facility] Start: 09-28-2022 Transcribe Orders Shreya oconnor AUTOMATION TECH - QUAHOGGER Work Phone: [facility] Start: 12-13-2021 End: 12-14-2021 Emergency department patient visit DR RAMON MIN MD [facility] Start: 09-04-2021 End: 09-04-2021 Emergency department patient visit Artie Jackson MD Work Phone: [facility] ED Comment on above: Finger swelling (Paradise rachel Dx); Pain of finger of left hand Start: 09-02-2021 End: 09-02-2021 Emergency department patient visit LATRELL MENDIOLA DO [facility] Start: 11-15-2020 End: 11-15-2020 Subsequent hospital visit by physician Shashank Finch Work Phone: [facility] General Surgery Comment on above: Arrived Start: 11-09-2020 End: 11-09-2020 Subsequent hospital visit by physician Shashank Finch Work Phone: [facility] Radiology Start: 05-14-2020 End: 05-14-2020 Subsequent hospital visit by physician Tuyet Gupta Work Phone: [facility] Surgery Comment on above: Arrived Procedures Date Procedure Procedure Detail Performing Clinician Start: 03-17-2025 Adult depression screening assessment Artie Jackson MD Work Phone: Start: 01-22-2025 AEROBIC AND ANAEROBI C CULTURE WITH STAIN Jose Morrison MD Work Phone: Start: 09-22-2024 Lipid 1996 panel - S theo or Plasma Phoebe Adam AUTOMATION TECH - QUAHOGGER Work Phone: Start: 09-20-2024 Adult depression screening assessment Phoebe Adam AUTOMATION TECH - QUAHOGGER Work Phone: Start: 08-26-2024 Adult depression screening assessment Shreya Olivera AUTOMATION TECH - QUAHOGGER Work Phone: Start: 05-08-2023 Basic metabolic pane l calcium total Shreya Bert AUTOMATION TECH - QUAHOGGER Work Phone: Start: 01-08-2023 Adult depression screening assessment Artie Jackson MD Work Phone: Start: 01-08-2023 Lipid 1996 panel - S theo or Plasma Sania BORREGO Work Phone: Start: 06-22-2021 Lipid 1996 panel - S theo or Plasma Artie Jackson MD Work Phone: Start: 11-15-2020 Basic metabolic pane l calcium total Shashank D Stef Work Phone: Start: 11-15-2020 Blood count complete auto&auto difrntl wbc Shahsank D Stef Work Phone: Start: 05-14-2020 OPERATIVE REPORT 3m Sca nning Start: 05-14-2020 Gluc bld gluc mntr d ev cleared fda spec home use Tuyet Gupta Work Phone: Start: 11-19-1992 Testis structure (val dy structure) [employer] AUTOMATION TECH-QUAHOGGER Comment on above: Twisted testicle Amputation [employer] APR N-QUAHOGGER Comment on above: Right foot 2nd and 3 rd toes, left foot 4th toe Testis structure (val dy structure) LATRELL MENDIOLA DO Plan of Treatment Date Care Activity Detail Author Start: 2052 RSV Immunization for Adults (1 - 1-dose 75+ series) RSV Immunization for Adults (1 - 1-dose 75+ series) [employer] [facility] Start: 2037 RSV Immunization aged 60 or older (1 - 1-dose 60+ series) RSV Immunization aged 60 or older (1 - 1-dose 60+ series) [employer] [facility] Start: 08-17-2028 DTaP/Tdap/Td vaccine (2 - Td or Tdap) DTaP/Tdap/Td vaccine (2 - Td or Tdap) [employer] Work Phone: Start: 08-17-2028 DTaP/Tdap/Td Vaccines (2 - Td or Tdap) DTaP/Tdap/Td Vaccines (2 - Td or Tdap) [facility] Start: 2027 Zoster Vaccines (1 of 2) Zoster Vaccines (1 of 2) [facility] Start: 06-16-2026 Creatinine measurement Creatinine Level [facility] Start: 06-16-2026 Hemoglobin A1c measurement Diabetes: Hemoglobin A1C [facility] Start: 06-16-2026 Potassium measurement Potassium Level [facility] Start: 03-17-2026 Depression Screening Depression Screening [facility] Start: 10-30-2025 Glaucoma screening Diabetes: Retinopathy Screening [facility] Start: 09-24-2025 Diabetes: Urine Albumin-Creatinine Ratio for [facility] Diabetes: Urine Albumin-Creatinine Ratio for [facility] Start: 09-22-2025 COVID-19 Vaccine () COVID-19 Vaccine () [facility] Comment on above: Postponed from 07/20/2024 (Patient Refus ed) Start: 09-22-2025 Creatinine measurement Creatinine Level [facility] Start: 09-22-2025 Diabetes: Estimated Glomerular Filtration Rate for [facility] Diabetes: Estimated Glomerular Filtration Rate for [facility] Start: 09-22-2025 Diabetic foot examination Diabetes: Foot Exam [facility] Start: 09-22-2025 Hemoglobin A1c measurement Diabetes: Hemoglobin A1C [facility] Start: 09-22-2025 Hepatitis A Vaccines (1 of 2 - Risk 2-dose series) Hepatitis A Vaccines (1 of 2 - Risk 2-dose series) [facility] Comment on above: Postponed from 1996 (Patient Refus ed) Start: 09-22-2025 Hepatitis C screening Hepatitis C Screening [facility] Comment on above: Postponed from 1995 (Patient Refus ed) Start: 09-22-2025 HIV screening HIV Screening [facility] Comment on above: Postponed from 1977 (Patient Refus ed) Start: 09-22-2025 Lipid panel Lipid Panel [facility] Start: 09-22-2025 Pneumococcal Vaccine: Pediatrics (0 to 5 Years) and At-Risk Patients (6 to 49 Years) (1 of 2 - PCV) Pneumococcal Vaccine: Pediatrics (0 to 5 Years) and At-Risk Patients (6 to 49 Years) (1 of 2 - PCV) [facility] Comment on above: Postponed from 1996 (Patient Refus ed) Start: 09-22-2025 Pneumococcal Vaccine: Pediatrics (0 to 5 Years) and At-Risk Patients (6 to 64 Years) (1 of 2 - PCV) Pneumococcal Vaccine: Pediatrics (0 to 5 Years) and At-Risk Patients (6 to 64 Years) (1 of 2 - PCV) [facility] Comment on above: Postponed from 1983 (Patient Refus ed) Start: 09-22-2025 Potassium measurement Potassium Level [facility] Start: 09-22-2025 Screening for malignant neoplasm of colon Colorectal Cancer Screening [facility] Comment on above: Postponed from 1977 (Patient Refus ed) Start: 09-20-2025 Depression Screening Depression Screening [facility] Start: 09-15-2025 End: 09-15-2025 Patient encounter procedure [facility] Start: 08-26-2025 Depression Screening Depression Screening [facility] Start: 07-20-2025 COVID-19 Vaccine ( season) COVID-19 Vaccine () [facility] Start: 07-20-2025 Influenza vaccination [facility] Start: 06-16-2025 End: 06-16-2026 Basic metabolic 1998 panel - Serum or Plasma Basic metabolic panel Lab Routine Chronic renal disease, stage IV (HCC) Expected: 06/16/2025 (Approximate), Expires: 06/16/2026 [facility] Comment on above: Expected: 06/16/2025 (Approximate), Expi res: 06/16/2026 Start: 06-16-2025 End: 06-16-2026 CBC W Auto Differential panel - Blood CBC auto differential Lab Routine Low hemoglobin Expected: 06/16/2025 (Approximate), Expires: 06/16/2026 [facility] Comment on above: Expected: 06/16/2025 (Approximate), Expi res: 06/16/2026 Start: 06-16-2025 End: 06-16-2026 Hemoglobin A1c measurement Hemoglobin A1c Lab Routine Type 2 diabetes mellitus with diabetic polyneuropathy, with long-term current use of insulin (HCC) Expected: 06/16/2025 (Approximate), Expires: 06/16/2026 [facility] Work Phone: Comment on above: Expected: 06/16/2025 (Approximate), Expi res: 06/16/2026 Start: 06-16-2025 End: 06-16-2025 Patient encounter procedure 06/16/2025 1:20 PM EDT Office Visit [facility] [place] [address] [place] [address] [place] [address] Shreya Olivera, AUTOMATION TECH - QUAHOGGER [address] [place] [address] [place] [address] [facility] [place] Start: 06-08-2025 End: 06-08-2025 Patient encounter procedure 06/08/2025 8:20 AM EDT Office Visit [facility] [place] [address] [place] [address] [place] [address] Phoebe Adam, AUTOMATION TECH - QUAHOGGER [address] [place] [address] [facility] [place] Start: 05-18-2025 Influenza vaccination Influenza Vaccine (#1) [facility] Comment on above: Postponed from 07/20/2024 (Patient Refus ed) Start: 05-13-2025 End: 05-13-2025 Patient encounter procedure 05/13/2025 8:20 AM EDT Office Visit [facility] [place] [address] [place] [address] [place] [address] Shreya Olivera, AUTOMATION TECH - QUAHOGGER [address] [place] [address] [place] [address] [facility] [place] Start: 03-12-2025 End: 03-12-2025 Patient encounter procedure 03/12/2025 8:40 AM EDT Office Visit [facility] [place] [address] [place] [id number] Emily Darby DO [address] [place] [address] [facility] [place] Start: 03-10-2025 End: 03-10-2025 Patient encounter procedure 03/10/2025 3:20 PM EDT Office Visit [facility] [place] [address] [place] [address] Bridenthal, Shreya, AUTOMATION TECH - QUAHOGGER [address] [place] [address] [place] [address] [place] [address] [facility] Start: 02-26-2025 End: 02-26-2025 Admission to same day surgery center 02/26/2025 9:30 AM EDT - 02/26/2025 10:30 AM EDT Surgery [facility] [address] 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 [phone] Jose Morrison MD 95 [facility] [address] [place] [address] [facility] Start: 02-19-2025 End: 02-19-2025 Admission to establishment 02/19/2025 2:00 PM EDT Pre-Admission Testing [facility] Pre-Admit Testing [address] [place] [phone] [facility] Pre-Admit Testing Start: 02-09-2025 End: 02-09-2025 Patient encounter procedure 02/09/2025 8:45 AM EDT Appointment [facility] [address] [place] [phone] Garrick Velasquez MD [address] [address] [facility] [address] Start: 02-09-2025 Subsequent hospital visit by physician 02/09/2025 8:45 AM EDT Hospital Encounter [facility] [address] [place] [address] Garrick Velasquez MD [address] [address] [facility] [address] Start: 02-02-2025 End: 02-02-2025 Patient encounter procedure 02/02/2025 2:20 PM EDT Office Visit [facility] [place] [address] [place] [address] [place] [address] Phoebe Adam S, AUTOMATION TECH - QUAHOGGER [address] [place] [address] [place] [address] [place] [address] [facility] [place] Start: 01-30-2025 End: 01-30-2025 Clinical Support 01/30/2025 11:00 AM EDT Clinical Support [facility] [place] [address] [place] [address] [place] [address] [place] [address] [facility] [place] Start: 01-21-2025 End: 01-21-2025 Patient encounter procedure 01/21/2025 11:30 AM EST [facility] [address] [facility] [address] [place] [phone] Jose Morrison MD [address] [place] [address] [facility] Start: 12-30-2024 End: 12-30-2024 Patient encounter procedure 12/30/2024 9:40 AM EST Office Visit [facility] [address] [place] [phone] Jose Morrison MD [address] [place] [address] [facility] Start: 12-24-2024 End: 12-24-2024 Patient encounter procedure 12/24/2024 2:20 PM EST Office Visit [facility] [address] [place] [address] [place] [address] Phoebe Adam, MOIRA - QUAHOGGER [address] [place] [address] [place] [address] [facility] Start: 12-24-2024 End: 12-24-2024 Patient encounter procedure 12/24/2024 11:50 AM EST Office Visit [facility] [address] [place] [address] Jose Morrison MD [address] [place] [address] [facility] Start: 12-23-2024 End: 12-23-2024 Patient encounter procedure 12/23/2024 3:45 PM EST Appointment [facility] [address] [place] [phone] Garrick Velasquez MD [address] [place] [address] [facility] [address] Start: 12-23-2024 Subsequent hospital visit by physician 12/23/2024 3:45 PM EST Hospital Encounter [facility] [address] [place] [address] Garrick Velasquez MD [address] [facility] [address] [place] [address] [facility] [address] Start: 12-16-2024 End: 12-16-2024 Patient encounter procedure 12/16/2024 10:30 AM EST Office Visit [facility] 201 [facility] 3 [place] [address] Jose Morrison MD 95 [facility] [address] [place] [address] [facility] Start: 12-09-2024 End: 12-09-2025 Basic metabolic 1998 panel - Serum or Plasma Basic metabolic panel Lab Routine Chronic kidney disease, unspecified CKD stage Expected: 12/09/2024 (Approximate), Expires: 12/09/2025 [facility] Comment on above: Expected: 12/09/2024 (Approximate), Expi res: 12/09/2025 Start: 12-09-2024 End: 12-09-2025 CT Abdomen and Pelvis WO contrast CT abdomen pelvis wo IV contrast Imaging Routine Gross hematuria Expected: 12/09/2024, Expires: 12/09/2025 [facility] Work Phone: Comment on above: Expected: 12/09/2024, Expires: Start: 12-09-2024 End: 12-09-2024 Patient encounter procedure 12/09/2024 9:30 AM EST Office Visit [facility] 201 [facility] 3 [place] [address] Garrick Velasquez MD 201 [facility] 3 [place] [address] [facility] Start: 11-25-2024 End: 11-25-2024 Patient encounter procedure 11/25/2024 9:30 AM EST Office Visit [facility] [address] [facility] [address] [place] [phone] Garrick Velasquez MD [address] [place] [address] [facility] Start: 10-30-2024 Glaucoma screening Diabetes: Retinopathy Screening [facility] Start: 10-27-2024 End: 10-27-2024 Patient encounter procedure 10/27/2024 1:20 PM EST Office Visit [facility] [address] [place] [address] [place] [address] [place] [address] Phoebe Adam APRN - [facility] [address] [place] [address] [place] [address] [facility] Start: 10-16-2024 Creatinine measurement Creatinine Level [facility] Start: 10-16-2024 Diabetes: Estimated Glomerular Filtration Rate for Kidney Health Diabetes: Estimated Glomerular Filtration Rate for Kidney Health [facility] Start: 10-16-2024 Potassium measurement Potassium Level [facility] Start: 09-22-2024 End: 09-22-2025 Bacteria identified in Urine by Culture Urine culture (clean catch) Microbiology Routine Necrotizing fasciitis (HCC) Expected: 09/22/2024 (Approximate), Expires: 09/22/2025 [facility] Comment on above: Expected: 09/22/2024 (Approximate), Expi res: 09/22/2025 Start: 09-22-2024 End: 09-22-2025 CBC panel - Blood by Automated count CBC Lab Routine 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) Type 2 diabetes mellitus with diabetic polyneuropathy, with long-term current use of insulin (HCC) Paroxysmal atrial fibrillation (HCC) Cardiomyopathy, unspecified type (HCC) Chronic renal disease, stage IV (HCC) Class 1 obesity due to excess calories without serious comorbidity with body mass index (BMI) of 34.0 to 34.9 in adult Cigarette nicotine dependence without complication Essential hypertension Hyperlipidemia LDL goal <70 Expected: 09/22/2024 (Approximate), Expires: 09/22/2025 [facility] Comment on above: Expected: 09/22/2024 (Approximate), Expi res: 09/22/2025 Start: 09-22-2024 End: 09-22-2025 Comprehensive metabolic 1998 panel - Serum or Plasma Comprehensive metabolic panel Lab Routine 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) Type 2 diabetes mellitus with diabetic polyneuropathy, with long-term current use of insulin (HCC) Paroxysmal atrial fibrillation (HCC) Cardiomyopathy, unspecified type (HCC) Chronic renal disease, stage IV (HCC) Class 1 obesity due to excess calories without serious comorbidity with body mass index (BMI) of 34.0 to 34.9 in adult Cigarette nicotine dependence without complication Essential hypertension Hyperlipidemia LDL goal <70 Expected: 09/22/2024 (Approximate), Expires: 09/22/2025 [facility] Comment on above: Expected: 09/22/2024 (Approximate), Expi res: 09/22/2025 Start: 09-22-2024 End: 09-22-2025 Hemoglobin A1c measurement Hemoglobin A1c Lab Routine 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) Type 2 diabetes mellitus with diabetic polyneuropathy, with long-term current use of insulin (HCC) Expected: 09/22/2024 (Approximate), Expires: 09/22/2025 [facility] Comment on above: Expected: 09/22/2024 (Approximate), Expi res: 09/22/2025 Start: 09-22-2024 End: 09-22-2025 Lipid 1996 panel - Serum or Plasma Lipid panel Lab Routine Cardiomyopathy, unspecified type (HCC) Hyperlipidemia LDL goal <70 Expected: 09/22/2024 (Approximate), Expires: 09/22/2025 [facility] Work Phone: Comment on above: Expected: 09/22/2024 (Approximate), Expi res: 09/22/2025 Start: 09-22-2024 End: 09-22-2025 Microalbumin/Creatinine panel in random Urine Microalbumin / creatinine urine ratio Lab Routine 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) Type 2 diabetes mellitus with diabetic polyneuropathy, with long-term current use of insulin (HCC) Chronic renal disease, stage IV (HCC) Expected: 09/22/2024 (Approximate), Expires: 09/22/2025 [facility] Comment on above: Expected: 09/22/2024 (Approximate), Expi res: 09/22/2025 Start: 09-22-2024 End: 09-22-2025 PSA Total (Screening) PSA Total (Screening) Lab Routine Screening for prostate cancer Expected: 09/22/2024 (Approximate), Expires: 09/22/2025 [facility] Comment on above: Expected: 09/22/2024 (Approximate), Expi res: 09/22/2025 Start: 09-22-2024 End: 09-22-2025 Urinalysis macro (dipstick) panel - Urine POCT Urinalysis dipstick Point of Care Testing Routine Necrotizing fasciitis (HCC) Expected: 09/22/2024, Expires: 09/22/2025 [facility] Comment on above: Expected: 09/22/2024, Expires: Start: 09-22-2024 End: 09-22-2024 Patient encounter procedure 09/22/2024 1:40 PM EST Office Visit [facility] [place] [address] [place] [address] [place] [address] Phoebe Adam, AUTOMATION TECH - QUAHOGGER [address] [place] [address] [facility] Start: 08-27-2024 End: 08-27-2024 Patient encounter procedure 08/27/2024 10:00 AM EDT Office Visit [facility] [place] [address] [place] [address] [place] [address] Phoebe Adam, AUTOMATION TECH - QUAHOGGER [address] [place] [address] [place] [address] [facility] Start: 07-20-2024 COVID-19 Vaccine () COVID-19 Vaccine () [facility] Start: 07-20-2024 COVID-19 Vaccine ( season) COVID-19 Vaccine () [facility] Start: 07-20-2024 Influenza vaccination [facility] Start: 04-09-2024 End: 04-09-2024 Patient encounter procedure 04/09/2024 10:00 AM EDT Office Visit [facility] [address] [place] [address] [place] [address] Phoebe Adam, AUTOMATION TECH - QUAHOGGER [address] [place] [address] [place] [address] [facility] Start: 04-05-2024 Hemoglobin A1c measurement Diabetes: Hemoglobin A1C [facility] Start: 02-25-2024 End: 02-25-2024 Patient encounter procedure 02/25/2024 1:20 PM EDT Office Visit [facility] [address] [place] [address] [place] [address] Phoebe Adam, AUTOMATION TECH - QUAHOGGER [address] [place] [address] [place] [address] [facility] Start: 02-18-2024 End: 02-18-2024 Patient encounter procedure 02/18/2024 2:20 PM EDT Office Visit [facility] [address] [place] [address] [place] [address] Phoebe Adam, AUTOMATION TECH - QUAHOGGER [address] [place] [address] [place] [address] [facility] Start: 01-28-2024 End: 01-28-2024 Patient encounter procedure 01/28/2024 10:00 AM EDT Office Visit [facility] [address] [place] [address] [place] [address] Phoebe Adam, AUTOMATION TECH - QUAHOGGER [address] [place] [address] [place] [address] [facility] Start: 01-08-2024 COVID-19 Vaccine (#1) COVID-19 Vaccine (#1) [facility] Comment on above: Postponed from 1977 (Patient Refus ed) Start: 01-08-2024 Depression Screening Depression Screening [facility] Start: 01-08-2024 Diabetes: Urine Albumin-Creatinine Ratio for Kidney Health Diabetes: Urine Albumin-Creatinine Ratio for Kidney Health [facility] Start: 01-08-2024 Diabetic foot examination Diabetes: Foot Exam [facility] Start: 01-08-2024 Hepatitis C screening Hepatitis C Screening [facility] Comment on above: Postponed from 1995 (Patient Refus ed) Start: 01-08-2024 HIV screening HIV Screening [facility] Comment on above: Postponed from 1977 (Patient Refus ed) Start: 01-08-2024 Lipid panel Lipid Panel [facility] Start: 01-08-2024 Pneumococcal Vaccine: Pediatrics (0 to 5 Years) and At-Risk Patients (6 to 64 Years) (1 - PCV) Pneumococcal Vaccine: Pediatrics (0 to 5 Years) and At-Risk Patients (6 to 64 Years) (1 - PCV) [facility] Comment on above: Postponed from 1983 (Patient Refus ed) Start: 01-08-2024 Pneumococcal Vaccine: Pediatrics (0 to 5 Years) and At-Risk Patients (6 to 64 Years) (1 of 2 - PCV) Pneumococcal Vaccine: Pediatrics (0 to 5 Years) and At-Risk Patients (6 to 64 Years) (1 of 2 - PCV) [facility] Comment on above: Postponed from 1983 (Patient Refus ed) Start: 01-08-2024 Screening for malignant neoplasm of colon Colorectal Cancer Screening [facility] Comment on above: Postponed from 1977 (Patient Refus ed) Start: 01-08-2024 Urine screening for protein Diabetes: Urine Protein Screening [facility] Start: 10-30-2023 End: 10-30-2023 Patient encounter procedure 10/30/2023 8:00 AM EST Office Visit [facility] [address] [facility] [place] [address] Shreya Olivera APRN - [employer] [address] [place] [address] [facility] Start: 07-20-2023 COVID-19 Vaccine ( season) COVID-19 Vaccine ( season) [facility] Start: 07-20-2023 Influenza vaccination [facility] Start: 07-06-2023 Hemoglobin A1c measurement Diabetes: Hemoglobin A1C [facility] Start: 07-03-2023 End: 07-03-2024 Bacteria identified in Urine by Culture Urine culture (clean catch) Microbiology Routine Urinary frequency Expected: 07/03/2023 (Approximate), Expires: 07/03/2024 [facility] Work Phone: Comment on above: Expected: 07/03/2023 (Approximate), Expi res: 07/03/2024 Start: 07-03-2023 End: 07-03-2023 Clinical Support 07/03/2023 11:00 AM EDT Clinical Support [facility] [address] [place] [address] [facility] Start: 05-18-2023 Influenza vaccination Influenza Vaccine (#1) [facility] Comment on above: Postponed from 07/20/2022 (Patient Refus ed) Start: 05-08-2023 End: 05-08-2023 Clinical Support 05/08/2023 11:00 AM EDT Clinical Support [facility] [address] [place] [address] [facility] Start: 05-03-2023 End: 05-03-2023 Clinical Support 05/03/2023 Clinical Support Family Medicine [facility] Start: 04-07-2023 Hemoglobin A1c measurement Diabetes: Hemoglobin A1C [facility] Start: 04-06-2023 End: 04-06-2023 Patient encounter procedure 04/06/2023 Office Visit Family Medicine Phoebe Adam, AUTOMATION TECH - QUAHOGGER [address] [place] [address] [facility] Start: 03-30-2023 End: 03-30-2023 Patient encounter procedure 03/30/2023 Office Visit Endocrinology Carole Beltre APRN - [employer]ACHINE [employer]PERATOR [address] [address] [facility] Start: 01-08-2023 End: 01-08-2024 CBC panel - Blood by Automated count CBC Lab Routine Type 2 diabetes mellitus with diabetic polyneuropathy, with long-term current use of insulin (CMS/HCC) (HCC) Diabetic polyneuropathy associated with type 2 diabetes mellitus (CMS/HCC) (HCC) Diabetes mellitus with proteinuria (CMS/HCC) (HCC) Essential hypertension Hyperlipidemia LDL goal <70 Cigarette nicotine dependence without complication Class 2 obesity due to excess calories without serious comorbidity with body mass index (BMI) of 38.0 to 38.9 in adult Expected: 01/08/2023 (Approximate), Expires: 01/08/2024 [facility] Work Phone: Comment on above: Expected: 01/08/2023 (Approximate), Expi res: 01/08/2024 Start: 01-08-2023 End: 01-08-2024 Comprehensive metabolic 1998 panel - Serum or Plasma Comprehensive metabolic panel Lab Routine Type 2 diabetes mellitus with diabetic polyneuropathy, with long-term current use of insulin (CMS/HCC) (HCC) Diabetic polyneuropathy associated with type 2 diabetes mellitus (CMS/HCC) (HCC) Diabetes mellitus with proteinuria (CMS/HCC) (HCC) Essential hypertension Hyperlipidemia LDL goal <70 Cigarette nicotine dependence without complication Class 2 obesity due to excess calories without serious comorbidity with body mass index (BMI) of 38.0 to 38.9 in adult Expected: 01/08/2023 (Approximate), Expires: 01/08/2024 [facility] Comment on above: Expected: 01/08/2023 (Approximate), Expi res: 01/08/2024 Start: 01-08-2023 End: 01-08-2024 Hemoglobin A1c/Hemoglobin.total in Blood Hemoglobin A1c Lab Routine Type 2 diabetes mellitus with diabetic polyneuropathy, with long-term current use of insulin (CMS/HCC) (HCC) Diabetic polyneuropathy associated with type 2 diabetes mellitus (CMS/HCC) (HCC) Diabetes mellitus with proteinuria (CMS/HCC) (HCC) Expected: 01/08/2023 (Approximate), Expires: 01/08/2024 [facility] Comment on above: Expected: 01/08/2023 (Approximate), Expi res: 01/08/2024 Start: 01-08-2023 End: 01-08-2024 Lipid 1996 panel - Serum or Plasma Lipid panel Lab Routine Hyperlipidemia LDL goal <70 Expected: 01/08/2023 (Approximate), Expires: 01/08/2024 [facility] Comment on above: Expected: 01/08/2023 (Approximate), Expi res: 01/08/2024 Start: 01-08-2023 End: 01-08-2024 Microalbumin/Creatinine panel in random Urine Microalbumin / creatinine urine ratio Lab Routine Type 2 diabetes mellitus with diabetic polyneuropathy, with long-term current use of insulin (CMS/HCC) (HCC) Diabetic polyneuropathy associated with type 2 diabetes mellitus (CMS/HCC) (HCC) Diabetes mellitus with proteinuria (CMS/HCC) (HCC) Expected: 01/08/2023 (Approximate), Expires: 01/08/2024 [facility] Comment on above: Expected: 01/08/2023 (Approximate), Expi res: 01/08/2024 Start: 01-08-2023 End: 01-08-2024 PSA screening PSA Screening Lab Routine Screening for prostate cancer Expected: 01/08/2023 (Approximate), Expires: 01/08/2024 [facility] Comment on above: Expected: 01/08/2023 (Approximate), Expi res: 01/08/2024 Start: 01-08-2023 End: 01-08-2023 Patient encounter procedure 01/08/2023 Office Visit Family Medicine Phoebe Adam APRN - [employer] [address] [place] [address] [facility] Start: 12-27-2022 End: 12-27-2022 Patient encounter procedure 12/27/2022 Office Visit Family Medicine Phoebe Adam APRN - [employer] [address] [place] [address] [facility] Start: 12-22-2022 End: 12-22-2022 Patient encounter procedure 12/22/2022 Office Visit Orthopedic Surgery Tu Goetz MD [address] [facility] [address] [place] [address] [facility] Start: 12-22-2022 End: 12-07-2023 XR Foot - right 3 Views [facility] Work Phone: Comment on above: Expected: 12/22/2022, Expires: 4 Once for 1 Occurrenc es starting 12/22/2022 until 12/22/2022 Start: 12-22-2022 End: 12-22-2022 Documentation procedure 12/22/2022 Documentation Orthopedic Surgery [facility] Start: 12-22-2022 End: 12-22-2022 Professional / ancillary services management 12/22/2022 Ancillary Procedure Urgent Care Right foot pain [facility] Comment on above: Right foot pain Start: 12-08-2022 End: 12-08-2022 Patient encounter procedure 12/08/2022 Office Visit Orthopedic Surgery Tu Goetz MD [address] [facility] [address] [place] [address] [facility] Start: 12-08-2022 End: 12-08-2023 XR Foot - right 3 Views XR foot 3+ views right Imaging Routine Pain in right foot Expected: 12/08/2022, Expires: 12/08/2023 [facility] Work Phone: Comment on above: Expected: 12/08/2022, Expires: Start: 12-08-2022 End: 12-08-2022 Documentation procedure 12/08/2022 Documentation Orthopedic Surgery [facility] Start: 12-07-2022 Urine screening for protein Diabetes: Urine Protein Screening [facility] Start: 08-09-2022 Hemoglobin A1c measurement Diabetes: Hemoglobin A1C [facility] Start: 07-20-2022 Influenza vaccination Influenza Vaccine (#1) [facility] Start: 06-22-2022 Creatinine measurement Creatinine monitoring [employer] Work Phone: Start: 06-22-2022 Diabetic microalbuminuria test Diabetic microalbuminuria test [employer] Work Phone: Start: 06-22-2022 Hemoglobin A1c measurement A1C test (Diabetic or Prediabetic) [employer] Work Phone: Start: 06-22-2022 Lipid panel [facility] Start: 06-22-2022 Pneumococcal 0-64 years Vaccine (1 of 2 - PPSV23) Pneumococcal 0-64 years Vaccine (1 of 2 - PPSV23) [employer] Work Phone: Comment on above: Postponed from 1983 (Patient Refus ed) Start: 06-22-2022 Potassium monitoring Potassium monitoring [employer] Work Phone: Start: 06-21-2022 HIV screening HIV screen [employer] Work Phone: Comment on above: Postponed from 1992 (Patient Refus ed) Start: 11-23-2021 Hepatitis C screening Hepatitis C screen [employer] Work Phone: Comment on above: Postponed from 1977 (Patient Refus ed) Start: 11-15-2021 Creatinine measurement Creatinine monitoring [facility] [place] Start: 11-15-2021 Potassium monitoring Potassium monitoring [facility]- [place], [place] Start: 09-23-2021 End: 09-23-2021 Patient encounter procedure 09/23/2021 Office Visit Family Medicine Phoebe Adam APRN - [facility] [address] [place] [address] [phone] [facility] Start: 09-21-2021 End: 09-21-2021 Patient encounter procedure 09/21/2021 Office Visit Family Medicine Phoebe Adam APRN - [facility] [address] [place] [address] [phone] [facility] Start: 07-20-2021 Influenza vaccination Flu vaccine (#1) [facility] Work Phone: Start: 12-12-2020 Creatinine measurement Creatinine monitoring [place], [place] Start: 12-12-2020 Diabetic foot examination Diabetic foot exam [place], [place] Start: 12-12-2020 Diabetic microalbuminuria test Diabetic microalbuminuria test [place] Start: 12-12-2020 DTaP/Tdap/Td vaccine (1 - Tdap) DTaP/Tdap/Td vaccine (1 - Tdap) [place] Comment on above: Postponed from 1996 (Patient Refus ed) Start: 12-12-2020 HbA1c (Bld) [Mass fraction] A1C test (Diabetic or Prediabetic) [place] Start: 12-12-2020 Hepatitis B vaccine (1 of 3 - Risk 3-dose series) Hepatitis B vaccine (1 of 3 - Risk 3-dose series) [place] Comment on above: Postponed from 1996 (Patient Refus ed) Start: 12-12-2020 HIV screening HIV screen [place] Comment on above: Postponed from 1992 (Patient Refus ed) Start: 12-12-2020 Influenza vaccination Flu vaccine (Season Ended) [place] Comment on above: Postponed from 07/20/2020 (Patient Refus ed) Start: 12-12-2020 Lipid panel Lipid screen [place] Start: 12-12-2020 Pneumococcal 0-64 years Vaccine (1 of 1 - PPSV23) Pneumococcal 0-64 years Vaccine (1 of 1 - PPSV23) [place] Comment on above: Postponed from 1983 (Patient Refus ed) Start: 12-12-2020 Potassium monitoring Potassium monitoring [place] Start: 05-25-2020 End: 05-25-2020 Office Visit 05/25/2020 Office Visit Family Medicine Artie Jackson MD [address] [place] [address], [place] [address] [phone] [facility] Start: 1996 Hepatitis A Vaccines (1 of 2 - Risk 2-dose series) Hepatitis A Vaccines (1 of 2 - Risk 2-dose series) [facility] Start: 1996 Hepatitis B vaccine (1 of 3 - Risk 3-dose series) Hepatitis B vaccine (1 of 3 - Risk 3-dose series) [facility] Work Phone: Start: 1995 Hepatitis C screening Hepatitis C Screening [facility] Start: 1989 COVID-19 Vaccine (1) COVID-19 Vaccine (1) [facility] Work Phone: Start: 1987 Diabetic foot examination Diabetes: Foot Exam [facility] Start: 1987 Diabetic retinal exam Diabetic retinal exam [place], [place] Start: 1987 Glaucoma screening Diabetes: Retinopathy Screening [facility] Start: 1987 Preventive dental service Diabetes: Dental Exam [facility] Start: 1983 Pneumococcal Vaccine: Pediatrics (0 to 5 Years) and At-Risk Patients (6 to 64 Years) (1 - PCV) Pneumococcal Vaccine: Pediatrics (0 to 5 Years) and At-Risk Patients (6 to 64 Years) (1 - PCV) [facility] Start: 1983 Pneumococcal Vaccine: Pediatrics (0 to 5 Years) and At-Risk Patients (6 to 64 Years) (1 of 2 - PCV) Pneumococcal Vaccine: Pediatrics (0 to 5 Years) and At-Risk Patients (6 to 64 Years) (1 of 2 - PCV) [facility] Start: 1978 MMR Vaccines (1 of 1 - Standard series) MMR Vaccines (1 of 1 - Standard series) [facility] Start: 1977 COVID-19 Vaccine (#1) COVID-19 Vaccine (#1) [facility] Start: 1977 Echocardiography Echocardiogram [facility] Start: 1977 Hepatitis B Vaccines (1 of 3 - 3-dose series) Hepatitis B Vaccines (1 of 3 - 3-dose series) [facility] Start: 1977 Hepatitis C screening Hepatitis C screen [place], [place] Start: 1977 HIV screening HIV Screening [facility] Start: 1977 Screening for malignant neoplasm of colon [facility] Aerobic and Anaerobi c Culture with Stain [facility] Work Phone: Comment on above: Ordered: 01/22/2025 End: 05-14-2020 Blood glucose - POCT Blood glucose - POCT Point of Care Testing STAT One Time for 1 Occurrences starting 05/14/2020 until 05/14/2020 [facility] Comment on above: One Time for 1 Occurrences starting 04/20 until 05/14/2020 End: 11-15-2020 Blood glucose - POCT Blood glucose - POCT Point of Care Testing STAT One Time for 1 Occurrences starting 11/15/2020 until 11/15/2020 [facility] Comment on above: One Time for 1 Occurrences starting 10/20 until 11/15/2020 Incentive spirometry Incentive s pirometry Respiratory Care Routine Q1H PRN until discontinued starting 05/14/2020 [facility] Comment on above: Q1H PRN until discontinued starting 04/20 Initiate Oxygen Ther apy Protocol Initiate Oxygen Therapy Protocol Respiratory Care Routine Daily until discontinued starting 05/14/2020 [facility] Comment on above: Daily until discontinued starting 2019 Phase I & II - meter ed glucose [facility] Comment on above: As Needed until discontinued starting As Needed until disc ontinued starting 11/15/2020 End: 05-14-2020 Pulse Oximetry Spot Check Pulse Oximetry Spot Check Respiratory Care Routine One Time for 1 Occurrences starting 05/14/2020 until 05/14/2020 [facility] Comment on above: One Time for 1 Occurrences starting 04/20 until 05/14/2020 End: 11-09-2020 XR FOOT RIGHT (MIN 3 VIEWS) XR FOOT RIGHT (MIN 3 VIEWS) Imaging Routine Once for 1 Occurrences starting 11/09/2020 until 11/09/2020 [facility] Comment on above: Once for 1 Occurrences starting 11/09/20 20 until 11/09/2020 XR FOOT RIGHT (MIN 3 VIEWS) XR FOOT RIGHT (MIN 3 VIEWS) Imaging Routine 11/09/2020 8:57 AM EST [place] Immunizations Immunization Date Immunization Notes Care Provider Trinity sotelo 05-07-2024 tuberculin skin test ; purified protein derivative solution, intradermal Shreya Bert [employer] Work Phone: [facility] 07-20-2020 influenza virus vaccine, unspecified formulation Shashank Finch [facility] 08-17-2018 tetanus toxoid, redu araceli diphtheria toxoid, and acellular pertussis vaccine, adsorbed; Translations: [Boostrix (Tdap)] LATRELL MENDIOLA DO [facility] 1976 measles, mumps and rubella virus vaccine Sania BORREGO Work Phone: [facility] 1978 measles/mumps/rubell a virus vaccine [employer] [facility] Payers Date Payer Category Payer Self-pay 2022 [employer] Managed Care - O ANTH BLUE CROSS [id number] 2022 Medicaid O [facility] MEDICAID OD [id number] 2022 Unknown [id number] [id number]. [id number] 2022 Unknown [id number] 2021 Unknown PARAMOUNT ADVANT AGE PARAMOUNT ADVANTAGE [id number] 2021-Present [phone] [address] [place] [address] [id number]. [id number] 2021 Medicaid [id number]. [id number] 2019 Unknown PARAMOUNT ADVANT AGE PARAMOUNT ADVANTAGE xxxxxxxxxxx 2019-Present [phone] [address] [place] [address] xxxxxxxxxxx [id number]. [id number] 2019 Unknown PARAMOUNT ADVANT AGE PARAMOUNT ADVANTAGE [id number] 2019-Present [phone] [address] [place] [address] [id number]. [id number] 1977 Unknown [id number] 1977 Unknown [id number] 840.1.763580.3.579.2 1977 Unknown [id number] .840.1.796194.3.579.2 1977 Unknown [id number] .840.1.240292.3.579.2 1977 Unknown [id number] 840.1.815509.3.579.2 1977 Unknown [id number] 2.16.840.1.128201.3.579.2. 627 1977 Unknown [id number] 2..840.1.001062.3.579.2. 627 1977 Unknown [id number] 2.16.840.1.551393.3.579.2. 62 1977 Unknown [id number] 2.840.1.158739.3.579.2. 62 1977 Unknown [id number] 2.840.1.259931.3.579.2. 1977 Unknown [id number] 2.840.1.708415.3.579.2. 627 Unknown [id number] 2.840.1.721254.3.579.2. 462 Unknown [id number] 2.840.1.873952.3.579.2. 462 Unknown [id number] 2.840.1.803727.3.579.2. 462 Unknown [id number] 2.840.1.321478.3.579.2. 462 Unknown [id number] 2.840.1.970837.3.579.2. 462 Unknown [id number] 2.16840.1.952796.3.579.2. 462 Unknown [id number] 2.840.1.776452.3.579.2. 462 Unknown [id number] 2.840.1.781719.3.579.2. 462 Unknown [id number] 2.840.1.836319.3.579.2. 462 Unknown [id number] 2.840.1.666505.3.579.2. 462 Unknown [id number] 2.840.1.644856.3.579.2. 462 Social History Date Type Detail Facility Start: 12-12-1989 End: 09-22-2024 Tobacco smoking status NHIS Current every day smoker [place], [place] Start: 12-12-1989 History of tobacco use Cigarette Smo ker [place] Start: 05-14-2020 End: 09-20-2024 Cigarettes smoked current (pack per day) - Reported [place] History of tobacco use Snuff [place] Start: 05-14-2020 End: 06-16-2025 Alcohol intake Current drinker of alcohol (finding) [place] Start: 12-12-2019 History SDOH Physica l Activity DPW 0 [place] Start: 12-12-2019 History SDOH Financial 4 [place] Start: 12-12-2019 End: 05-26-2021 History SDOH Food Worry 1 [place] Start: 12-12-2019 End: 05-26-2021 History SDOH Transport Med 2 [place] Start: 05-14-2020 Alcohol Comment seldom [place], [place] Start: 1975 Sex Assigned At Not on file M [place] Exposure to SARS-CoV -2 (event) Unable to assess [place] Start: 11-15-2020 End: 09-22-2024 Tobacco use and exposure Current user [place] Start: 12-12-2022 End: 07-03-2023 Exposure to SARS-CoV-2 (event) Not sure [place] Start: 04-30-2019 Heavy tobacco smoker (finding) [facility] Sex Assigned At [facility] Start: 05-26-2021 History SDOH Financial 5 [facility] Work Phone: Start: 01-08-2023 End: 09-20-2024 Tobacco use panel [facility] Start: 01-24-2024 Alcohol intake Lifetime non-d bill (finding) [facility] Start: 02-15-2024 Alcohol Comment Occasional [facility] Start: 08-29-2015 End: 06-19-2022 Sex Male (finding) [facility] How often do you nee d to have someone help you when you read instructions, pamphlets, or other written material from your doctor or pharmacy [SILS] Never [facility] Do you belong to any clubs or organizations such as muslim groups, unions, fraternal or athletic groups, or school groups? No [facility] Are you now , , , , never or living with a partner? Living with partner [facility] Do you feel stress - tense, restless, nervous, or anxious, or unable to sleep at night because your mind is troubled all the time - these days [OSQ] Not at all [facility] (I/We) worried wheth er (my/our) food would run out before (I/we) got money to buy more. Never true [facility] How often do you nee d to have someone help you when you read instructions, pamphlets, or other written material from your doctor or pharmacy [SILS] Never [facility] Medical Equipment Procedure Code Equipment Code Equipment Origin al Text Equipment Identifier Dates 1 each by In Vit ro route 2 times daily As needed. [id number] Start: 03-12-2020 1 each by Does n ot apply route 2 times daily Please dispense lancets to match the true metrix meter given. [id number] Start: 03-12-2020 TEST BLOOD SUGAR twice a day as directed [id number] Start: 10-11-2020 TRUE METRIX GLUC OSE TEST STRIP Start: 09-19-2020 TRUEPLUS 33G LANCETS Star t: 09-19-2020 Test blood sugar twice a day [id number] Start: 06-22-2021 TEST BLOOD SUGAR twice a day as directed [id number] Start: 04-19-2021 TRUE METRIX GLUC OSE TEST STRIP Start: 09-19-2020 TRUEPLUS 33G LANCETS Star t: 09-19-2020 use daily as directed [id number] Start: 05-24-2022 use 1 TEST STRIP to TEST BLOOD SUGAR twice a day [id number] Start: 01-08-2023 End: 04-20-2023 use 1 TEST STRIP to TEST BLOOD SUGAR twice a day [id number] Start: 04-20-2023 End: 07-27-2023 TRUE METRIX GLUC OSE TEST STRIP, 0 Refill(s), 130 Start: 09-19-2020 TRUEPLUS 33G LANCETS, 0 Refill(s), 130 Start: 09-19-2020 TEST twice a day as directed [id number] Start: 07-27-2023 Inject 100 each under the skin daily. As directed [id number] Start: 08-13-2023 End: 06-18-2025 use 1 TEST STRIP to TEST BLOOD SUGAR twice a day [id number] Start: 11-05-2023 End: 02-18-2024 use 1 TEST STRIP to TEST BLOOD SUGAR twice a day [id number] Start: 02-18-2024 TRUE METRIX GLUC OSE TEST STRIP, 0 Refill(s), 130 Start: 09-19-2020 TRUEPLUS 33G LANCETS, 0 Refill(s), 130 Start: 09-19-2020 use 1 TEST STRIP to TEST BLOOD SUGAR twice a day [id number] Start: 03-31-2024 TRUE METRIX GLUC OSE TEST STRIP, 0 Refill(s), 130 Start: 09-19-2020 TRUEPLUS 33G LANCETS, 0 Refill(s), 130 Start: 09-19-2020 use 1 TEST STRIP to TEST BLOOD SUGAR twice a day [id number] Start: 10-02-2022 End: 01-08-2023 use 1 TEST STRIP to TEST BLOOD SUGAR twice a day [id number] Start: 11-06-2024 End: 06-16-2025 use 1 TEST STRIP to TEST BLOOD SUGAR twice a day [id number] Start: 06-16-2025 Inject 1 each un enrrique the skin 3 times daily. As directed [id number] Start: 06-18-2025 Goals Date Patient Goal Desired Activity /State Comment on above: Diabetes Education/ Self- Management Plan: Patient Stated Goal: A1C less than 9 and stay active, and decrease sweets in diet Goals Discussion/Provider Goal: A1C less than 9, Total Cholesterol less than 200, HDL greater than 40, blood pressure less than 130/80, weight within appropriate range for height, BMI within approprate range, FBS within 70-130 range. Nutrition Discussion: Carb counting discussion, reading food labels education, portion control explanation, and smart snacking discussion addressed. Eye Care Discussion: Encouraged yearly exam. Foot Care Discussion: Encouraged yearly podiatric focused exam. Exercise Discussion: Discussed with patient how physical activity helps manage blood sugar levels better. Encouraged 20-30 minutes of physical activity most days of the week. Barriers to Success: lack of motivation Plan for Overcoming Barriers: Resume taking medications as prescribed. Encouraged and recommended by provider. Confidence to Achieve Goal: 04/28 Date Goat Set: 05/15/18 Patient was given education materials on healthy diet and diabetes management- see AVS. Patient received counseling about current lifestyle goal. Advised approximately 150 minutes of cardio, i.e treadmill, exercise in a week. Advised strive for 5 a total 5 servings of fruits and vegetables in a day. Advised a diet lower in carbohydrates and simple sugars. They need to watch consumption of bread, rice, pasta, potatoes, corn, soda, sweetened tea, lemonade, and all other sugar drinks. Patient given after visit summary which includes educational information on Nutrition. Discussed use, benefit, and side effects of prescribed medications and barriers to medication compliance addressed, if applicable. All patient questions answered and patient voiced understanding. Patient was given a copy of this, and was advised to call if any questions. Diabetes Education/ Self- Management Plan: Patient Stated Goal: A1C less than 9 and stay active, and decrease sweets in diet Goals Discussion/Provider Goal: A1C less than 9, Total Cholesterol less than 200, HDL greater than 40, blood pressure less than 130/80, weight within appropriate range for height, BMI within approprate range, FBS within 70-130 range. Nutrition Discussion: Carb counting discussion, reading food labels education, portion control explanation, and smart snacking discussion addressed. Eye Care Discussion: Encouraged yearly exam. Foot Care Discussion: Encouraged yearly podiatric focused exam. Exercise Discussion: Discussed with patient how physical activity helps manage blood sugar levels better. Encouraged 20-30 minutes of physical activity most days of the week. Barriers to Success: lack of motivation Plan for Overcoming Barriers: Resume taking medications as prescribed. Encouraged and recommended by provider. Confidence to Achieve Goal: 04/28 Goal Date: ongoing Patient was given education materials on healthy diet and diabetes management- see AVS. Patient received counseling about current lifestyle goal. Advised approximately 150 minutes of cardio, i.e treadmill, exercise in a week. Advised strive for 5 a total 5 servings of fruits and vegetables in a day. Advised a diet lower in carbohydrates and simple sugars. They need to watch consumption of bread, rice, pasta, potatoes, corn, soda, sweetened tea, lemonade, and all other sugar drinks. Patient given after visit summary which includes educational information on Nutrition. Discussed use, benefit, and side effects of prescribed medications and barriers to medication compliance addressed, if applicable. All patient questions answered and patient voiced understanding. Patient was given a copy of this, and was advised to call if any questions. Comment on above: Self- Management Christine n: Obesity/Weight Loss Patient Stated Goal: wants to lose another 50 pounds Barriers to success: lack of motivation Plan for overcoming my barriers: continue working on it. Encouraged and recommended by provider. Confidence: 03/28 Self-Management Plan: Will strive to achieve goal by within a year Date goal set: 12/12/19 Patient given educational materials below via AVS. Provider Goal: Healthy diet and exercise. Patient received counseling about current lifestyle goal. Advised approximately 150 minutes of cardio, i.e treadmill, exercise in a week. Advised strive for 5 a total 5 servings of fruits and vegetables in a day. Advised a diet lower in carbohydrates and simple sugars. They need to watch consumption of bread, rice, pasta, potatoes, corn, soda, sweetened tea, lemonade, and all other sugar drinks. Patient given after visit summary which includes educational information on Nutrition. Discussed use, benefit, and side effects of prescribed medications and barriers to medication compliance addressed, if applicable. All patient questions answered and patient voiced understanding. Patient was given a copy of this, and was advised to call if any questions. Formatting of this n ote might be different from the original. Self- Management Plan: Obesity/Weight Loss Patient Stated Goal: wants to lose another 50 pounds Barriers to success: lack of motivation Plan for overcoming my barriers: continue working on it. Encouraged and recommended by provider. Confidence: 03/28 Self-Management Plan: Will strive to achieve goal by within a year Date goal set: 12/12/19 Patient given educational materials below via AVS. Provider Goal: Healthy diet and exercise. Patient received counseling about current lifestyle goal. Advised approximately 150 minutes of cardio, i.e treadmill, exercise in a week. Advised strive for 5 a total 5 servings of fruits and vegetables in a day. Advised a diet lower in carbohydrates and simple sugars. They need to watch consumption of bread, rice, pasta, potatoes, corn, soda, sweetened tea, lemonade, and all other sugar drinks. Patient given after visit summary which includes educational information on Nutrition. Discussed use, benefit, and side effects of prescribed medications and barriers to medication compliance addressed, if applicable. All patient questions answered and patient voiced understanding. Patient was given a copy of this, and was advised to call if any questions. Comment on above: Formatting of this n ote might be different from the original. Diabetes Education/ Self- Management Plan: Patient Stated Goal: A1C less than 9 and stay active, and decrease sweets in diet Goals Discussion/Provider Goal: A1C less than 9, Total Cholesterol less than 200, HDL greater than 40, blood pressure less than 130/80, weight within appropriate range for height, BMI within approprate range, FBS within 70-130 range. Nutrition Discussion: Carb counting discussion, reading food labels education, portion control explanation, and smart snacking discussion addressed. Eye Care Discussion: Encouraged yearly exam. Foot Care Discussion: Encouraged yearly podiatric focused exam. Exercise Discussion: Discussed with patient how physical activity helps manage blood sugar levels better. Encouraged 20-30 minutes of physical activity most days of the week. Barriers to Success: lack of motivation Plan for Overcoming Barriers: Resume taking medications as prescribed. Encouraged and recommended by provider. Confidence to Achieve Goal: 04/28 Goal Date: ongoing Patient was given education materials on healthy diet and diabetes management- see AVS. Patient received counseling about current lifestyle goal. Advised approximately 150 minutes of cardio, i.e treadmill, exercise in a week. Advised strive for 5 a total 5 servings of fruits and vegetables in a day. Advised a diet lower in carbohydrates and simple sugars. They need to watch consumption of bread, rice, pasta, potatoes, corn, soda, sweetened tea, lemonade, and all other sugar drinks. Patient given after visit summary which includes educational information on Nutrition. Discussed use, benefit, and side effects of prescribed medications and barriers to medication compliance addressed, if applicable. All patient questions answered and patient voiced understanding. Patient was given a copy of this, and was advised to call if any questions. Comment on above: Formatting of this n ote might be different from the original. I will follow a nutrition plan to have better control of my blood sugar numbers by carb counting and decreasing sweets in diet Barriers: overwhelmed by complexity of regimen Plan for overcoming my barriers: work with health care team Confidence: 03/28 Anticipated Goal Completion Date: ongoing Copy of goals sent to patient Functional Status Date Assessment Result Facility 02-15-2025 Functional Status Room check performed [facility] 02-15-2025 Functional Status Done [facility] 02-15-2025 Functional Status [facility] 02-15-2025 Functional Status 100 [facility] 02-15-2025 Functional Status [facility] 02-15-2025 Functional Status [facility] 02-15-2025 Functional Status Activity Assistance Two assist [facility] 02-15-2025 Functional Status [facility] 02-14-2025 Functional Status bilateral knee high artemio lied/on [facility] 02-14-2025 Functional Status [facility] 02-14-2025 Functional Status [facility] 02-14-2025 Functional Status 7am-7pm [facility] 02-14-2025 Functional Status [facility] 02-14-2025 Functional Status [facility] 02-13-2025 Functional Status [facility] 02-13-2025 Functional Status Hospital bed [facility] 02-12-2025 Functional Status Independent [facility] 02-12-2025 Functional Status Dinner Percent 100 [facility] 02-12-2025 Functional Status [facility] 02-12-2025 Functional Status [facility] 02-11-2025 Functional Status heel(s)s eleva smita, padded oxygen tubing, turn and position system [facility] 02-11-2025 Functional Status Living Situati on Home independently, Lives with significant other [facility] 02-11-2025 Functional Status [facility] 02-11-2025 Functional Status [facility] 02-11-2025 Functional Status Mod I [facility] 02-11-2025 Functional Status [facility] 02-11-2025 Functional Status [facility] 02-10-2025 Functional Status [facility] 02-10-2025 Functional Status [facility] Functional Status Other: 7AM to D/c [facility] 06-30-2024 Functional Status Identified as high risk, Room check performed [facility] 06-30-2024 Functional Status Refused [facility] 06-30-2024 Functional Status [facility] 06-30-2024 Functional Status [facility] 06-29-2024 Functional Status [facility] 06-29-2024 Functional Status [facility] 06-29-2024 Functional Status Refused to be up in chair, Encouraged/reinforced importance of being up in chair [facility] 06-29-2024 Functional Status [facility] 06-29-2024 Functional Status [facility] 06-29-2024 Functional Status [facility] 06-28-2024 Functional Status [facility] 06-28-2024 Functional Status [facility] 06[facility]28-2024 [facility] Functional Status NPO Status Maintained A [facility] 06-27-2024 Functional Status [facility] Functional Status Sequential Com pression Device bilateral knee high removed/off [facility] 06-26-2024 [facility]-26[facility]-26[facility]24 [facility]-25-[facility]24 Functional Status Therapy recomm end pt. go to SNF following admission in February, but pt. refused and left AMA (04/29/24) [facility] 06-24-2024 Functional Status [facility] 06-23-2024 Functional Status [facility] 06-23-2024 Functional Status [facility] 06-23-2024 Functional Status [facility] 06-23-2024 Functional Status [facility] 06-23-2024 Functional Status Assistive Equi pment elevated on pillows [facility] 06-22-2024 [facility] Functional Status [facility] 06-22-2024 Functional Status [facility] 06-21-2024 Functional Status [facility] 06-21-2024 Functional Status Ambulation Encouraged/reinforced importance of ambulation [facility] 06-20-2024 Functional Status heel(s)s elevated [facility] 06-20-2024 Functional Status [facility] 06-18-2024 Functional Status Sensory Deficits None A [facility] 06-06-2024 Functional Status Maximum assistance [facility] 06-06-2024 Functional Status Awake [facility] 05-15-2024 Functional Status Min A [facility] 05-15-2024 Functional Status [facility] 05-14-2024 Functional Status [facility] 05-14-2024 Functional Status [facility] 05-14-2024 Functional Status [facility] 05-14-2024 Functional Status Foam dressing [facility] 05-14-2024 Functional Status [facility] 05-14-2024 Functional Status [facility] 05-14-2024 Functional Status [facility] 05-13-2024 Functional Status [facility] 05-13-2024 Functional Status [facility] 05-12-2024 Functional Status [facility] 05-11-2024 Functional Status [facility] Functional Status Evening Snack Percent [address] [facility] 05-10-2024 Functional Status Dinner Percent 100 [facility] 05-09-2024 Functional Status [facility] 05-09-2024 Functional Status [facility] 05-09-2024 Functional Status Therapy recomm end pt. go to SNF following admission in February, but pt. refused and left AMA (04/29/24) [facility] 05-08-2024 Functional Status Repositions self [facility] 05-08-2024 [facility] 05-07-[facility]24 Functional Status High Risk Safe ty Identified as high risk, Room located near nursing station [facility] 05-07-2024 Functional Status [facility] 05-07-2024 Functional Status Environmental Safety Implemented Adequate room lighting, Bed in low position, Call device within reach, Other: meal tray offered and declined [facility] 05-07-2024 [facility] Functional Status Room check performed [facility] 05-06-2024 Functional Status Repositioned back [facility] 05-06-2024 Functional Status [facility] 05-06-2024 Functional Status [facility] 05-06-2024 Functional Status Done [facility] 05-06-2024 Functional Status [facility] 05-06-2024 Functional Status [facility] 05-06-2024 Functional Status [facility] 05-06-2024 Functional Status [facility] 05-05-2024 Functional Status [facility] 05-05-2024 Functional Status Patient Identi fied Identification band [facility] 05-05-2024 Functional Status NPO Status Maintained A [facility] 05-05-2024 Functional Status [facility] 05-05-2024 Functional Status [facility] 05-05-2024 Functional Status [facility] 05-04-2024 Functional Status Dinner Percent 100 [facility] 05-04-2024 Functional Status [facility] 05-03-2024 Functional Status 100 [facility] 05-03-2024 Functional Status [facility] 05-03-2024 Functional Status 100 [facility] 05-03-2024 Functional Status [facility] 05-02-2024 Functional Status [facility] 05-02-2024 Functional Status [facility] 05-02-2024 Functional Status Mod A [facility] 05-01-2024 Functional Status [facility] 04-30-2024 Functional Status Lunch Percent 70 [facility] 04-30-2024 Functional Status 50 [facility] 04-29-2024 [facility] Functional Status Therapy recomm end pt. go to SNF following admission in February, but pt. refused and left AMA (04/29/24) [facility] 04-29-2024 Functional Status [facility] 04-28-2024 Functional Status [facility] 04-27-2024 Functional Status [facility] 04-27-2024 [facility]26[facility]-25-2024 Functional Status Mobility Donnie tance Level Maximum assistance [facility] 04-24-2024 Functional Status [facility] 04-22-2024 Functional Status Sensory Deficits None A [facility] 04-20-2024 Functional Status Special Call D evice Unable to use call device [facility] 04-20-2024 Functional Status [facility] 04-20-2024 Functional Status [facility] 04-19-2024 Functional Status Pre-restraint Alternatives Attempted Enhanced observation, Positioning/Turning, Reality orientation, Intervention attempted, not successful [facility] 04-16-2024 Functional Status [facility] 04-06-2024 Functional Status Independent [facility] 04-06-2024 Functional Status Standard Safet y ID band on, Allergy Band on, Call device within reach, Bed in low position, Wheels locked, Upper/Half-Length side-rails up, Bedside Cart Locked, Safety level maintained [facility] 03-11-2024 Functional Status Nurse Safety C madison q2hrs Performed 7am-3pm [facility] 03-11-2024 Functional Status bilateral knee high rem woo/off [facility] 03-11-2024 Functional Status [facility] 03-11-2024 Functional Status Supervised [facility] 03-11-2024 Functional Status [facility] 03-11-2024 Functional Status Door open, Room check performed [facility] 03-11-2024 Functional Status [facility] 03-10-2024 Functional Status [facility] Functional Status [facility] 03-10-2024 Functional Status Single level home [facility] 03-10-2024 Functional Status [facility] 03-10-2024 Functional Status [place] [facility] 03-10-2024 Functional Status [facility] 03-10-2024 Functional Status [facility] 03-09-2024 Functional Status [place] [facility] 03-09-2024 Functional Status Total [facility] 03-08-2024 Functional Status [place] [facility] 03-08-2024 Functional Status Sensory Deficits None [facility] 07-07-2023 Functional Status Independent [place] N[facility] 07-07-2023 Functional Status Standard Safet y ID band on, Call device within reach, Bed in low position, Wheels locked, Visitor at bedside, Safety level maintained [facility] Mental Status Date Assessment Result Facility 02-15-2025 [facility] Status [facility] 02-14-2025 Mental Status [facility] 02-13-2025 Mental Status [facility] 02-13-2025 Mental Status [facility] 06-30-2024 Mental Status [facility]ed x 4 [facility] 06-29-2024 [facility] Status [facility] 06-29-2024 Mental Status [facility] 06-06-2024 Mental Status Oriented x 4 [facility] 06-06-2024 Mental Status [facility] 05-15-2024 Mental Status [facility] x [facility] 05-15-2024 Mental Status [facility] 05-07-2024 Mental Status Orientation Oriented x 4 [facility] 05-07-2024 Mental Status [facility] 05-07-2024 Mental Status [facility] 05-06-2024 Mental Status [facility] x [facility] 05-06-2024 [facility] 05-06-2024 [facility] 04-06-2024 Mental Status Orientation Oriented x 4 [facility] 04-06-2024 Mental Status [facility] 03-11-2024 Mental Status Oriented x 4 [facility] 03-10-2024 Mental Status [facility] 03-10-2024 Mental Status [facility] 03-09-2024 Mental Status [facility] 07-07-2023 Mental Status Orientation Oriented x 4 [facility] 07-07-2023 Mental Status [facility] Clinical Notes 09-02-2021 to 07-13-2025 Telephone Encounter - MOIRA Samuels CNP - 07/13/2025 10:18 AM EDTTelephone Encounter - MOIRA Samuels CNP - 07/13/2025 10:18 AM EDTMnain Hankins - 06/16/2025 1:20 PM EDT Note Date & Type Note Facility 07-13-2025 Telephone encounter Note Reviewed chart. Refill not appropriate, too soon. RX refused [facility] 07-13-2025 Miscellaneous Notes Reviewed chart. Refill not appropriate, too soon. RX refused Acetaminophen sent in 07/09/25 60 tablets 3 refills Hysralazine sent 06/16/25 270 tablets Please refuse both meds documented in this encounter [facility] 07-13-2025 Telephone encounter Note Reviewed chart. Refill not appropriate, too soon. RX refused [facility] 07-13-2025 Miscellaneous Notes Reviewed chart. Refill not appropriate, too soon. RX refused Sent 02/17/25 90 and 1 refill Pt should still have 30 days of medication left Please refuse mediction documented in this encounter [facility] 07-13-2025 Telephone encounter Note Sent 02/17/25 90 and 1 refill Pt should still have 30 days of medication left Please refuse mediction [facility] 07-13-2025 Telephone encounter Note Acetaminophen sent in 07/09/25 60 tablets 3 refills Hysralazine sent 06/16/25 270 tablets Please refuse both meds [facility] 07-09-2025 Telephone encounter Note Prescription Request: Last medication check: 06/16/25 Last physical exam: 2020 Next scheduled appointment: 09/15/25 Last date of refill on this medication 06/12/25 60 tablets no refill [facility] 07-09-2025 Miscellaneous Notes Prescription Request: Last medication check: 06/16/25 Last physical exam: 2020 Next scheduled appointment: 09/15/25 Last date of refill on this medication 06/12/25 60 tablets no refill documented in this encounter [facility] 06-18-2025 Telephone encounter Note Spoke with pharmacy Please send in new RX for the Quik Pen. Pended new rx please verify correct order/dose. Also pended pen tips. [facility] 06-18-2025 Miscellaneous Notes Spoke with pharmacy Please send in new RX for the Quik Pen. Pended new rx please verify correct order/dose. Also pended pen tips. The pen Name of caller: [facility] Contact phone number: [phone] Relationship to Patient: Pharmacy Provider: Practice: [facility] Chief Complaint/Reason for Call: Pharmacy calling for clarification on insulin lispro (HumaLOG) 100 UNIT/ML pen cartridge. Patient does not have a reusable pen at home so what this supposed to be the Quik Pen? Please advise. Best time of day caller can be reached: any Patient advised that office/PCP has 24-48 business hours to return their call: no documented in this encounter [facility] 06-16-2025 Evaluation + Plan note Associated Problem(s): Open wound of skin Recommend continue to monitor. Warm compresses couple times a day to promote drainage. Advised to follow-up if increased swelling or redness or pain occurs. [facility] 06-16-2025 Miscellaneous Notes Associated Problem(s): Open wound of skin Recommend continue to monitor. Warm compresses couple times a day to promote drainage. Advised to follow-up if increased swelling or redness or pain occurs. Associated Problem(s): Type 2 diabetes mellitus with diabetic polyneuropathy, with long-term current use of insulin ([facility]) Poorly controlled. Check hemoglobin A1c today. Restart Lantus at 10 units daily, Humalog 5 units with meals 3 times a day. Send glucose readings every 3 days for titration of insulin Associated Problem(s): Cardiomyopathy (HCC) Stable. Restart metoprolol XL at 25 mg daily Associated Problem(s): End-stage renal disease on hemodialysis (HCC) Managed by nephrology. Associated Problem(s): 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) Control unknown. Check hemoglobin A1c. Associated Problem(s): Essential hypertension Initial elevated. Resume hydralazine 50 mg 3 times daily, metoprolol 25 mg XL daily. Hold hydralazine on days of dialysis Associated Problem(s): Hyperlipidemia LDL goal <70 Continue fenofibrate 145 mg daily, rosuvastatin 10 mg daily. Associated Problem(s): Paroxysmal atrial fibrillation (HCC) Restart Eliquis, start back on the metoprolol XR at 25 mg daily documented in this encounter [facility] 06-16-2025 Evaluation + Plan note Associated Problem(s): Type 2 diabetes mellitus with diabetic polyneuropathy, with long-term current use of insulin (HCC) Poorly controlled. Check hemoglobin A1c today. Restart Lantus at 10 units daily, Humalog 5 units with meals 3 times a day. Send glucose readings every 3 days for titration of insulin [facility] 06-16-2025 Evaluation + Plan note Associated Problem(s): Cardiomyopathy (HCC) Stable. Restart metoprolol XL at 25 mg daily [facility] 06-16-2025 Evaluation + Plan note Associated Problem(s): End-stage renal disease on hemodialysis (HCC) Managed by nephrology. [facility] 06-16-2025 Evaluation + Plan note Associated Problem(s): 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) Control unknown. Check hemoglobin A1c. [facility] 06-16-2025 Evaluation + Plan note Associated Problem(s): Essential hypertension Initial elevated. Resume hydralazine 50 mg 3 times daily, metoprolol 25 mg XL daily. Hold hydralazine on days of dialysis [facility] 06-16-2025 Evaluation + Plan note Associated Problem(s): Hyperlipidemia LDL goal <70 Continue fenofibrate 145 mg daily, rosuvastatin 10 mg daily. [facility] 06-16-2025 Evaluation + Plan note Associated Problem(s): Paroxysmal atrial fibrillation (HCC) Restart Eliquis, start back on the metoprolol XR at 25 mg daily [facility] 06-16-2025 Telephone encounter Note The pen [facility] 06-16-2025 Telephone encounter Note Name of caller: DINA Contact phone number: [phone] Relationship to Patient: Pharmacy Provider: Practice: [facility] Chief Complaint/Reason for Call: Pharmacy calling for clarification on insulin lispro (HumaLOG) 100 UNIT/ML pen cartridge. Patient does not have a reusable pen at home so what this supposed to be the Quik Pen? Please advise. Best time of day caller can be reached: any Patient advised that office/PCP has 24-48 business hours to return their call: no [facility] 06-16-2025 History of Presen t illness Narrative Patient was identified by name and Date of . Health Maintenance Due Topic Echocardiogram- Diabetes: Dental Exam- Diabetes: Retinopathy Screening- Images from the original note were not included. 06/16/2025 Gurinder Hahn (: 1975) is a 50 y.o. male , Established patient, here for evaluation of the following chief complaint(s): Diabetes ASSESSMENT/PLAN: 1. Type 2 diabetes mellitus with diabetic polyneuropathy, with long-term current use of insulin ([facility]) Assessment & Plan: Poorly controlled. Check hemoglobin A1c today. Restart Lantus at 10 units daily, Humalog 5 units with meals 3 times a day. Send glucose readings every 3 days for titration of insulin Orders: - Hemoglobin A1c - Lantus SoloStar 100 UNIT/ML pen; inject 10 units subcutaneously in the morning., Normal - gabapentin (Neurontin) 300 MG capsule; Take 1 capsule (300 mg) by mouth Nightly., Starting Sun06/16/2025, Normal - insulin lispro (HumaLOG) 100 UNIT/ML pen cartridge; Inject 5 Units under the skin 3 times daily (with meals)., Starting Sun06/16/2025, Normal 2. Chronic renal disease, stage IV ([facility]) Assessment & Plan: Managed by nephrology. Orders: - Basic metabolic panel 3. Low hemoglobin - CBC auto differential 4. Cardiomyopathy, unspecified type ([facility]) Assessment & Plan: Stable. Restart metoprolol XL at 25 mg daily Orders: - metoprolol succinate XL (Toprol-XL) 25 MG 24 hr tablet; Take 1 tablet (25 mg) by mouth daily. Do not crush or chew., Starting Sun06/16/2025, Until 12/13/2025, Normal - hydrALAZINE (Apresoline) 50 MG tablet; Take 1 tablet (50 mg) by mouth 3 times daily., Starting Sun06/16/2025, Normal 5. Diabetes mellitus with proteinuria (CMS/HCC) (HCC) ([facility]) Assessment & Plan: Control unknown. Check hemoglobin A1c. Orders: - Lantus SoloStar 100 UNIT/ML pen; inject 10 units subcutaneously in the morning., Normal - glucose blood (True Metrix Blood Glucose Test) test strip; use 1 TEST STRIP to TEST BLOOD SUGAR twice a day, Normal 6. Essential hypertension Assessment & Plan: Initial elevated. Resume hydralazine 50 mg 3 times daily, metoprolol 25 mg XL daily. Hold hydralazine on days of dialysis Orders: - hydrALAZINE (Apresoline) 50 MG tablet; Take 1 tablet (50 mg) by mouth 3 times daily., Starting Sun06/16/2025, Normal 7. Hyperlipidemia LDL goal <70 Assessment & Plan: Continue fenofibrate 145 mg daily, rosuvastatin 10 mg daily. 8. Paroxysmal atrial fibrillation ([facility]) Assessment & Plan: Restart Eliquis, start back on the metoprolol XR at 25 mg daily Orders: - metoprolol succinate XL (Toprol-XL) 25 MG 24 hr tablet; Take 1 tablet (25 mg) by mouth daily. Do not crush or chew., Starting Sun06/16/2025, Until 12/13/2025, Normal - Eliquis 5 MG tablet; Take 1 tablet (5 mg) by mouth 2 times daily., Starting Sun06/16/2025, Normal 9. Open wound of skin Assessment & Plan: Recommend continue to monitor. Warm compresses couple times a day to promote drainage. Advised to follow-up if increased swelling or redness or pain occurs. Follow up for 3 month [facility]. SUBJECTIVE/OBJECTIVE: HPI - Gurinder Hahn (: 1975) is a 50 y.o. male , Established patient, here for the evaluation of the following chief complaint(s): Diabetes Presents for follow-up diabetes. He is noncompliant with his medications. Patient was last seen in office last fall and has had a couple of hospital admissions since then and has been started on hemodialysis. Reports that he is having a lot of high glucose. Has lantus and humalog. Reports that it has been awhile since he used it. 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 Reports his sugars have been in the high 200s and denies any hypoglycemic episodes. It drinking more water and trying to watch what he is eating. M,W,F- dialysis in [place]. Is tired after dialysis Goes Jun 23 for mapping for dialysis fistula. Reports that he is not taking the eliquis or metoprolol-he also stopped his amlodipine and hydralazine 50 mg 3 times a day. Reports his blood pressures have been lower on dialysis days Urology-was seeing for a fistula to skin. Was going to have surgery but it is on hold due to going on dialysis. Neuropathy-reports that the gabapentin at bedtime is very helpful. Patient also recently was treated for skin infection on the back of the neck. Reports he had taken cephalexin for several days and reports that it feels much better and is no longer painful. He did have some drainage from the area, denies any fever or chills Current Medications[1] Review of Systems Constitutional: Positive for fatigue. Negative for activity change, appetite change and fever. HENT: Negative. Respiratory: Negative. Cardiovascular: Positive for leg swelling (Reports at baseline). Negative for chest pain and palpitations. Gastrointestinal: Negative. Genitourinary: Negative for difficulty urinating. Neurological: Negative. Psychiatric/Behavioral: Negative. Vitals: 06/16/25 1318 06/16/25 1423 BP: (!) 157/96 128/82 Pulse: 101 87 Resp: 20 Temp: 36.8 C (98.3 F) TempSrc: Infrared SpO2: 97% Weight: 281 lb (127 kg) Physical Exam Constitutional: General: He is not in acute distress. Appearance: Normal appearance. He is obese. He is not ill-appearing. Comments: Presents in wheelchair HENT: Head: Normocephalic and atraumatic. Mouth/Throat: Mouth: Mucous membranes are moist. Pharynx: Oropharynx is clear. No posterior oropharyngeal erythema. Eyes: Conjunctiva/sclera: Conjunctivae normal. Neck: Cardiovascular: Rate and Rhythm: Normal rate and regular rhythm. Pulses: Normal pulses. Heart sounds: Normal heart sounds. Comments: Right upper chest dialysis catheter, dressing clean dry and intact Pulmonary: Effort: Pulmonary effort is normal. Breath sounds: Normal breath sounds. Abdominal: Palpations: Abdomen is soft. Tenderness: There is no abdominal tenderness. Musculoskeletal: Right lower leg: Edema (Trace) present. Left lower leg: Edema (Trace) present. Skin: General: Skin is warm and dry. Neurological: Mental Status: He is alert and oriented to person, place, and time. Psychiatric: Mood and Affect: Mood normal. Behavior: Behavior normal. Thought Content: Thought content normal. An electronic signature was used to authenticate this note. Shreya Olivera, [facility] 06/16/2025 5:30 PM [1] Current Outpatient Medications Medication Sig Dispense Refill acetaminophen (Tylenol) 500 MG tablet Take 1 tablet (500 mg) by mouth every 6 hours as needed for mild pain (1-3) or moderate pain (4-6). 60 tablet 0 Alcohol Swabs (B-D SINGLE USE SWABS REGULAR) pads use three times a day as directed 120 each 2 B-D UF III MINI PEN NEEDLES 31G X 5 MM misc Inject 100 each under the skin daily. As directed 100 each 2 Blood Pressure kit 1 each daily. 1 kit 0 calcium acetate (Phoslo) 667 MG capsule Take 667 mg by mouth 3 times daily (with meals). Chlorhexidine Gluconate (Dressing) misc Use as directed to cover report 30 each 1 Continuous Glucose Head Rigger (FreeStyle Yanni 3 [place]) device Use as directed 1 each 0 Continuous Glucose Sensor (FreeStyle Yanni 3 Sensor) misc every 14 (fourteen) days. 2 each 5 glimepiride (Amaryl) 4 MG tablet TAKE 2 TABLETS (8 MG) BY MOUTH DAILY (WITH BREAKFAST). 180 tablet 1 melatonin 3 MG tablet Take 1 tablet (3 mg) by mouth Nightly. 30 tablet 3 midodrine (Proamatine) 10 MG tablet Take 10 mg by mouth three times a week. omeprazole (PriLOSEC) [address] capsule TAKE 1 CAPSULE (40 MG) BY MOUTH 2 TIMES DAILY (BEFORE MEALS). DO NOT CRUSH OR CHEW 60 capsule 5 polyethylene glycol, PEG, 3350 (Miralax) 17 g packet Take 17 g by mouth daily. 30 packet 2 rosuvastatin (Crestor) 10 MG tablet Take 1 tablet (10 mg) by mouth daily. 90 tablet 1 Eliquis 5 MG tablet Take 1 tablet (5 mg) by mouth 2 times daily. 60 tablet 5 gabapentin (Neurontin) 300 MG capsule Take 1 capsule (300 mg) by mouth Nightly. 90 capsule 0 glucose blood (True Metrix Blood Glucose Test) test strip use 1 TEST STRIP to TEST BLOOD SUGAR twice a day 100 strip 1 hydrALAZINE (Apresoline) 50 MG tablet Take 1 tablet (50 mg) by mouth 3 times daily. 270 tablet 0 insulin lispro (HumaLOG) 100 UNIT/ML pen cartridge Inject 5 Units under the skin 3 times daily (with meals). 13.5 mL 1 Lantus SoloStar 100 UNIT/ML pen inject 10 units subcutaneously in the morning. 3 mL 3 metoprolol succinate XL (Toprol-XL) 25 MG 24 hr tablet Take 1 tablet (25 mg) by mouth daily. Do not crush or chew. 90 tablet 1 Transparent Dressings (TEGADERM FIRST AID STYLE) misc Applied to area of concern as needed (Patient not taking: Reported on 06/16/2025) 30 each 0 No current facility-administered medications for this visit. documented in this encounter [facility] 06-16-2025 Instructions MOIRA Samuels CNP - 06/16/2025 1:20 PM EDT We can make adjustments to insulin every 3 days. Please send in fasting and 2 hour post meal glucose readings every 3 days. documented in this encounter [facility] 06-12-2025 Telephone encounter Note Reviewed chart. Refill appropriate. RX sent. [facility] 06-12-2025 Telephone encounter Note Reviewed chart. Refill appropriate. RX sent. [facility] 06-12-2025 Miscellaneous Notes Reviewed chart. Refill appropriate. RX sent. Prescription Request: Last medication check: 09/22/24 Last physical exam: 2020 Next scheduled appointment: 06/16/25 Last date of refill on this medication 05/21/25 60 tablets no refills documented in this encounter [facility] 06-12-2025 Miscellaneous Notes Reviewed chart. Refill appropriate. RX sent. Prescription Request: Last medication check: 09/22/24 Last physical exam: 2020 Next scheduled appointment: 06/16/25 Last date of refill on this medication 01/29/25 30 tablets 3 refills documented in this encounter [facility] 06-12-2025 Telephone encounter Note Prescription Request: Last medication check: 09/22/24 Last physical exam: 2020 Next scheduled appointment: 06/16/25 Last date of refill on this medication 05/21/25 60 tablets no refills [facility] 06-12-2025 Telephone encounter Note Prescription Request: Last medication check: 09/22/24 Last physical exam: 2020 Next scheduled appointment: 06/16/25 Last date of refill on this medication 01/29/25 30 tablets 3 refills [facility] 05-21-2025 Telephone encounter Note Reviewed chart. Refill appropriate. RX sent. [facility] 05-21-2025 Miscellaneous Notes Reviewed chart. Refill appropriate. RX sent. Prescription Request: Last medication check: 09/22/24 Last physical exam: 01/08/23 Next scheduled appointment: 06/08/25 Last date of refill on this medication 04/16/25 60 tablets no refills documented in this encounter [facility] 05-21-2025 Telephone encounter Note Prescription Request: Last medication check: 09/22/24 Last physical exam: 01/08/23 Next scheduled appointment: 06/08/25 Last date of refill on this medication 04/16/25 60 tablets no refills [facility] 04-28-2025 Telephone encounter Note Prescription Request: Continuous Glucose Sensor (FreeStyle Yanni 3 Sensor) mis Last medication check: none Last physical exam: none Next scheduled appointment: 05/13/25 Last date of refill on this medication 11/10/24 ( qty 2 refill 5) [facility] 04-28-2025 Miscellaneous Notes Prescription Request: Continuous Glucose Sensor (FreeStyle Yanni 3 Sensor) mis Last medication check: none Last physical exam: none Next scheduled appointment: 05/13/25 Last date of refill on this medication 11/10/24 ( qty 2 refill 5) documented in this encounter [facility] 04-16-2025 Telephone encounter Note Prescription Request: Last medication check: 09/22/24 Last physical exam: none Next scheduled appointment: 05/13/25 Last date of refill on this medication 02/17/25 60 tablets no refill [facility] 04-16-2025 Miscellaneous Notes Prescription Request: Last medication check: 09/22/24 Last physical exam: none Next scheduled appointment: 05/13/25 Last date of refill on this medication 02/17/25 60 tablets no refill documented in this encounter [facility] 02-15-2025 Discharge summary Date of Service 02/15/2025 Discharge Diagnosis Acute renal failure superimposed on CKD stage IIIb, now requiring dialysis Severe hyperkalemia, improved Volume overload Acute on chronic heart failure reduced EF 40-45% Concern for vesicocutaneous fistula, recommended outpatient neurology follow-up with imaging and further assessment Abnormal urinalysis Paroxysmal atrial fibrillation, recommend outpatient follow-up with cardiology Chronic anemia/anemia of chronic disease Diabetes mellitus type 2 Hypertension with urgency 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 Diabetic neuropathy Tobacco use Hospital Course This is a 49-year-old Burkinan-speaking male with a known history of chronic heart failure with reduced EF 40-45%, nonischemic cardiomyopathy, paroxysmal atrial fibrillation was not taking anticoagulation recently, CKD stage IIIb[baseline creatinine around 1.9 2], history of Claire's gangrene s/p multiple debridement and antibiotics back in April 2024, stage IV gluteal wound, diabetes mellitus type 2, hypertension, blood loss and multifactorial anemia, dyslipidemia, recent UTI treated with Bactrim, who presented as a transfer from [facility] with lower extremity weakness and worsening swelling as well as shortness of breath with exertion. Patient was hypertensive but afebrile on presentation. Found to have significantly elevated creatinine at 6.19/BUN 57 with potassium elevated at 7.9. proBNP was 25,583. CBC did not show any evidence of leukocytosis. UA did show small leukocyte esterase, loaded WBCs and squamous epithelial cells. Chest x-ray was concerning for pulmonary vascular congestion versus infectious process. Patient was brought to [facility] admitted to MICU. Dialysis catheter was placed and patient underwent emergent dialysis with improvement in his potassium level. Patient was seen by nephrology and urolog y(for concern for vesiclocutaneous fistula). Per urology, he does need further evaluation with repeat imaging with the possibility of a fistula, however he was not having any obstructive symptoms, patient stated that he was following with a urologist in the outpatient setting, would like to continue to following up with them, to establish an appointment upon discharge. Nephrology has been following, recommended ongoing dialysis with the catheter in place, his dialysis was set up with the case management assistance with the next session to occur tomorrow morning 02/16/2025 at [facility] in [place]. Patient had a delay in his discharge due to suboptimal blood pressure readings, patient continued to have elevated blood pressure despite addition of multiple antihypertensive medications, his blood pressure medications were adjusted to amlodipine 10 mg, carvedilol 25 mg twice a day, Bumex 1 mg twice a day, hydralazine 50 mg 3 times a day. Despite this, he was having elevated blood pressures, therefore he underwent an ultrafiltration session with some improvement in his blood pressure although still suboptimal. Patient had explained on multiple occasions that he would like to go home, he states that he has immense anxiety with the hospital as he had previous experience with this family passing away here in the hospital and not having a good outcome and therefore he fears being in the hospital. He has expressed interest in leaving the hospital during each encounter. He states that this has always caused him to have elevated blood pressure. Was seen by nephrology, was given an additional dose of Lasix, started on clonidine 0.1 twice a day as needed for blood pressure systolic greater than 160. He appears to have some response to this, he was asymptomatic and was requesting to go home today, in discussion with nephrology, patient has dialysis tomorrow and should continue with the schedule. From their standpoint, okay for discharge with close outpatient follow-up with current regimen. Unable to use FLORINDA/ARB for better blood pressure control due to still being in the acute phase of his renal failure. This can be considered in the outpatient setting if appropriate. Patient was happy with this care, he is being discharged today in a hemodynamically stable condition. Allergies ampicillin Unknown penicillin Unknown Procedures Tunneled hemodialysis catheter, 02/13/2025 Consults Consult to Physician - Ordered -- 02/10/25 7:48:00 EDT, GABRIELA LOTT MD, Routine, acute renal failure, hyperkalemia Consult to Physician (Physician Consult) - Ordered -- 02/10/25 10:43:00 EDT, TU DUTTON MD, Routine, Suprapubic fistula Imaging Results and Diagnostics IR Tunneled HD Result Date: February 13, 2025 Verified By: DAMARI GASTELUM MD CLINICAL STATEMENT: IMPRESSION: Successful conversion of a temporary to tunneled hemodialysis catheter. Procedure was performed by Ritika Curtis PA-C IR Temporary Dialysis Catheter Result Date: February 10, 2025 Verified By: DAMARI GASTELUM MD CLINICAL STATEMENT: IMPRESSION: Successful placement of a temporary hemodialysis catheter NOTE: Temporary hemodialysis catheter intended for inpatient use only.Removal or conversion to a permanent tunneled catheter required prior tohospital discharge. Procedure performed by Ritika Curtis PA-C XR Chest 1 View Result Date: February 10, 2025 Verified By: LINA ARMANDO MD CLINICAL STATEMENT: IMPRESSION: No interval change. US Renal Result Date: February 10, 2025 Verified By: LINA ARMANDO MD CLINICAL STATEMENT: IMPRESSION: Unremarkable ultrasound of the kidneys. I have personally reviewed the images of this examination and agree with theresident's findings and interpretation. Objective Vitals and Measurements T: 36.4 C (Oral) TMIN: 36.4 C (Oral) TMAX: 36.8 C (Oral) HR: 79 RR: 18 BP: 178/104 SpO2: 95% WT: 127 kg Weight Current Weight Dosing Weight: 126.8 kg (02/15/25) Current Weight: 127 kg (02/15/25) Dosing Weight: 123.8 kg (02/14/25) Resting in bed, no acute distress. Trace pedal edema in the bilateral lower extremities. Abdomen soft, obese, nontender, active bowel sounds. Patient is alert oriented x 3. Chest with bibasilar crackles but improved compared with yesterday. Right-sided hemodialysis catheter present, well-dressed. Code Status Code Status - Ordered -- 02/10/25 1:58:00 EDT, Full Code, Constant Order Admission Date 02/10/2025 Discharge Date 02/15/2025 Patient Instructions Please take your medications as prescribed. As we discussed, it is very importantly check your blood pressure regularly, please report these numbers to your primary care doctor as well as her kidney doctor. Please make sure that you continue with dialysis as recommended, your next session is tomorrow morning. Please take clonidine as prescribed for systolic blood pressure or your top number on the blood pressure reading is greater than 160. Avoid any salt intake, limit your potassium intake. Please follow-up with your urologist, heart doctor within the next 3-4 weeks. Medications New Prescription amLODIPine (amLODIPine 10 mg oral tablet)1 tab(s) by mouth once a day. Refills: 0. carvedilol (Coreg 25 mg oral tablet)1 tab(s) by mouth twice daily with meals. Refills: 0. cloNIDine (cloNIDine 0.1 mg oral tablet)1 tab(s) by mouth two (2) times a day as needed Blood pressure control for 21 Days. take if systolic BP >160. Refills: 0. hydrALAZINE (hydrALAZINE 50 mg oral tablet)1 tab(s) by mouth three (3) times a day. Refills: 0. Unchanged apixaban (Eliquis 5 mg oral tablet)1 tab(s) by mouth two (2) times a day for 30 Days. Refills: 4. bacitracin topical (bacitracin topical ointment)1 application Topical two (2) times a day. bumetanide (bumetanide 1 mg oral tablet)1 tab(s) by mouth two (2) times a day for 30 Days. Start on 05/19/24. Refills: 2. emollients, topical1 application Topical two (2) times a day. gabapentin (gabapentin 100 mg oral capsule)3 cap by mouth once a day. glimepiride (glimepiride 4 mg oral tablet)2 tab(s) by mouth with breakfast. insulin glargine (Lantus 100 units/mL10 ml vial solution)15 unit(s) Subcutaneous (INT) daily at bedtime. insulin lispro (HumaLOG) (HumaLOG 100 units/mL subcutaneous solution)Give 0-10 units/dose Subcutaneous three (3) times a day before meals. lidocaine topical (lidocaine 4% patch)Transdermal every 24 hours. omeprazole (omeprazole 40 mg oral delayed release capsule)1 cap by mouth two (2) times a day. rosuvastatin (rosuvastatin 10 mg oral tablet)1 tab(s) once a day. AM. sodium hypochlorite topical (Dakins Half Strength 0.25% topical solution)1 application Topical two (2) times a day. Discontinued metoprolol (Toprol-XL 100 mg oral tablet, extended release)1 tab(s) by mouth two (2) times a day for 30 Days. Refills: 3. Follow Up Follow Up with TU DUTTON MD, [facility] When:In 3 weeks Where:[address] [facility] [address] [facility] [address]- [phone] Additional Information: Schedule appointment as soon as possible Follow Up with CORAL CARY MD When:Within 1-2 days Where:[address] [facility] [place] [place] [address]- [phone] Additional Information: Schedule appointment as soon as possible Follow Up with YAMILET LEE MD When:In 4 weeks Where:[address] [facility] [address] [facility] [place] [address] [phone] Additional Information: Schedule appointment as soon as possible Follow Up with Nikita Garcia When:Within 1-2 days Additional Information: Your hemodialysis schedule is Mondays, Sunday and Fridays at 12pm. You will need to arrive 30 minutes early for your first treatment. First treatment will be SundayFebruary 16. Follow Up with PHOEBE ADAM APRN-PRODUCT ENGINEER When:Within 1-2 days Where:[address] [place] [address]- Additional Information: Please call the office to schedule a hospital follow up appointment. Follow Up Appointments No qualifying data available. Follow Up Labs/Studies Discharge Labs No Follow-up Labs Discharge Studies No Follow-up Studies Discharge Diet Discharge Diet - Ordered -- No changes were made to your diet during your hospital stay. Please resume your pre hospitalization diet on discharge., 02/15/25 17:29:00 EDT Discharge Activity Discharge Activity - Ordered -- Resume your pre-hospitalization activity, 02/15/25 17:29:00 EDT Condition on Discharge Fair Readmission Risk/Palliative Score No qualifying data available. Discharge Disposition Home Time Spent Greater than 30 minutes Digitally Signed by ORALIA SAMUELS MD on 02/15/2025 05:[address] [facility] 02-15-2025 Note Discharge Instructions Thank you for allowing [facility] to assist you with your healthcare needs. The following is important discharge information regarding your hospital visit. Your Care Team PHOEBE ADAM What to do next Instructions From Your Doctor Please take your medications as prescribed. As we discussed, it is very importantly check your blood pressure regularly, please report these numbers to your primary care doctor as well as her kidney doctor. Please make sure that you continue with dialysis as recommended, your next session is tomorrow morning. Please take clonidine as prescribed for systolic blood pressure or your top number on the blood pressure reading is greater than 160. Avoid any salt intake, limit your potassium intake. Please follow-up with your urologist, heart doctor within the next 3-4 weeks. Follow Up Appointments Follow Up with CORAL CARY MD When:Within 1-2 days Where:[address] [facility] [place] [place] [address]- [phone] Additional Information: Schedule appointment as soon as possible Follow Up with YAMILET LEE MD When:In 4 weeks Where:[address] [facility] [place] [address]- [phone] Additional Information: Schedule appointment as soon as possible Follow Up with Nikita Garcia When:Within 1-2 days Additional Information: Your hemodialysis schedule is Mondays, Sunday and Fridays at 12pm. You will need to arrive 30 minutes early for your first treatment. First treatment will be SundayFebruary 16. Follow Up with PHOEBE ADAM When:Within 1-2 days Where:[address] [place] [address]- Additional Information: Please call the office to schedule a hospital follow up appointment. The Following Activity and Diet Have Been Ordered for You Discharge Activity - Ordered -- Resume your pre-hospitalization activity, 02/15/25 17:29:00 EDT Discharge Diet - Ordered -- No changes were made to your diet during your hospital stay. Please resume your pre hospitalization diet on discharge., 02/15/25 17:29:00 EDT The Following Equipment Has Been Ordered for You No qualifying data available. The Following Treatments Have Been Ordered for You Discharge Labs No qualifying data available. Discharge Radiology No qualifying data available. Other Therapies No qualifying data available. Post Acute Orders No qualifying data available. Someone Will Contact You Regarding These Home Health Referrals No home referrals have been ordered for you. No one will call you. Allergies ampicillin Unknown penicillin Unknown Medications Please ask your primary doctor or pharmacist before taking any other medication not listed, including over the counter drugs, herbal medications, vitamins and or supplements as they may interact with your home medications. What How Much When Instructions Last Dose New amLODIPine (amLODIPine 10 mg oral tablet) 1 tab(s) by mouth Once a day Pickup at [facility]/pharmacy #[id number] New carvedilol (Coreg 25 mg oral tablet) 1 tab(s) by mouth Twice daily with meals Pickup at [facility]/pharmacy #[id number] New cloNIDine (cloNIDine 0.1 mg oral tablet) 1 tab(s) by mouth Two (2) times a day as needed for Blood pressure control Duration: 21 Days take if systolic BP >160 Pickup at [facility]/pharmacy #[id number] New hydrALAZINE (hydrALAZINE 50 mg oral tablet) 1 tab(s) by mouth Three (3) times a day Pickup at [facility]/pharmacy #[id number] Unchanged apixaban (Eliquis 5 mg oral tablet) 1 tab(s) by mouth Two (2) times a day Duration: 30 Days Unchanged bacitracin topical (bacitracin topical ointment) 1 application Topical Two (2) times a day Unchanged bumetanide (bumetanide 1 mg oral tablet) 1 tab(s) by mouth Two (2) times a day Duration: 30 Days Start on Unchanged emollients, topical 1 application Topical Two (2) times a day Unchanged gabapentin (gabapentin 100 mg oral capsule) 3 cap by mouth Once a day Unchanged glimepiride (glimepiride 4 mg oral tablet) 2 tab(s) by mouth With breakfast Unchanged insulin glargine (Lantus 100 units/ mL10 ml vial solution) 15 unit(s) Subcutaneous (INT) Daily at bedtime Unchanged insulin lispro (HumaLOG) (HumaLOG 100 units/ mL subcutaneous solution) Give 0-10 units/dose Subcutaneous Three (3) times a day before meals Unchanged lidocaine topical (lidocaine 4% patch) Transdermal Every 24 hours Unchanged omeprazole (omeprazole 40 mg oral delayed release capsule) 1 cap by mouth Two (2) times a day Unchanged rosuvastatin (rosuvastatin 10 mg oral tablet) 1 tab(s) Once a day AM Unchanged sodium hypochlorite topical (Dakins Half Strength 0.25% topical solution) 1 application Topical Two (2) times a day Pharmacy Information [facility]/pharmacy #[id number]: [address] [place], [place] [phone] What How Much When Comments Stop Taking metoprolol (Toprol-XL 100 mg oral tablet, extended release) 1 tab(s) by mouth Two (2) times a day Duration: 30 Days Please take this list to your next doctor s visit. Bring all medications you take, including over the counter medications, herbals and other supplements with you to your doctor s visit. Patients and families are reminded to discard old lists and to update any records with all medication providers or retail pharmacies. Education Materials Hypertension, Adult High blood pressure (hypertension) is when the force of blood pumping through the arteries is too strong. The arteries are the blood vessels that carry blood from the heart throughout the body. Hypertension forces the heart to work harder to pump blood and may cause arteries to become narrow or stiff. Untreated or uncontrolled hypertension can cause a heart attack, heart failure, a stroke, kidney disease, and other problems. A blood pressure reading consists of a higher number over a lower number. Ideally, your blood pressure should be below 120/80. The first (top) number is called the systolic pressure. It is a measure of the pressure in your arteries as your heart beats. The second (bottom) number is called the diastolic pressure. It is a measure of the pressure in your arteries as the heart relaxes. What are the causes? The exact cause of this condition is not known. There are some conditions that result in or are related to high blood pressure. What increases the risk? Some risk factors for high blood pressure are under your control. The following factors may make you more likely to develop this condition: Smoking. Having type 2 diabetes mellitus, high cholesterol, or both. Not getting enough exercise or physical activity. Being overweight. Having too much fat, sugar, calories, or salt (sodium) in your diet. Drinking too much alcohol. Some risk factors for high blood pressure may be difficult or impossible to change. Some of these factors include: Having chronic kidney disease. Having a family history of high blood pressure. Age. Risk increases with age. Race. You may be at higher risk if you are . Gender. Men are at higher risk than women before age 45. After age 65, women are at higher risk than men. Having obstructive sleep apnea. Stress. What are the signs or symptoms? High blood pressure may not cause symptoms. Very high blood pressure (hypertensive crisis) may cause: Headache. Anxiety. Shortness of breath. Nosebleed. Nausea and vomiting. Vision changes. Severe chest pain. Seizures. How is this diagnosed? This condition is diagnosed by measuring your blood pressure while you are seated, with your arm resting on a flat surface, your legs uncrossed, and your feet flat on the floor. The cuff of the blood pressure monitor will be placed directly against the skin of your upper arm at the level of your heart. It should be measured at least twice using the same arm. Certain conditions can cause a difference in blood pressure between your right and left arms. Certain factors can cause blood pressure readings to be lower or higher than normal for a short period of time: When your blood pressure is higher when you are in a health care provider's office than when you are at home, this is called white coat hypertension. Most people with this condition do not need medicines. When your blood pressure is higher at home than when you are in a health care provider's office, this is called masked hypertension. Most people with this condition may need medicines to control blood pressure. If you have a high blood pressure reading during one visit or you have normal blood pressure with other risk factors, you may be asked to: Return on a different day to have your blood pressure checked again. Monitor your blood pressure at home for 1 week or longer. If you are diagnosed with hypertension, you may have other blood or imaging tests to help your health care provider understand your overall risk for other conditions. How is this treated? This condition is treated by making healthy lifestyle changes, such as eating healthy foods, exercising more, and reducing your alcohol intake. Your health care provider may prescribe medicine if lifestyle changes are not enough to get your blood pressure under control, and if: Your systolic blood pressure is above 130. Your diastolic blood pressure is above 80. Your personal target blood pressure may vary depending on your medical conditions, your age, and other factors. Follow these instructions at home: Eating and drinking Eat a diet that is high in fiber and potassium, and low in sodium, added sugar, and fat. An example eating plan is called the DASH (Dietary Approaches to Stop Hypertension) diet. To eat this way: ? Eat plenty of fresh fruits and vegetables. Try to fill one half of your plate at each meal with fruits and vegetables. ? Eat whole grains, such as whole-wheat pasta, brown rice, or whole-grain bread. Fill about one fourth of your plate with whole grains. ? Eat or drink low-fat dairy products, such as skim milk or low-fat yogurt. ? Avoid fatty cuts of meat, processed or cured meats, and poultry with skin. Fill about one fourth of your plate with lean proteins, such as fish, chicken without skin, beans, eggs, or tofu. ? Avoid pre-made and processed foods. These tend to be higher in sodium, added sugar, and fat. Reduce your daily sodium intake. Most people with hypertension should eat less than 1,500 mg of sodium a day. Do not drink alcohol if: ? Your health care provider tells you not to drink. ? You are , may be , or are planning to become . If you drink alcohol: ? Limit how much you use to: ? 0 1 drink a day for women. ? 0 2 drinks a day for men. ? Be aware of how much alcohol is in your drink. In the [place] one drink equals one 12 oz bottle of beer (355 mL), one 5 oz glass of wine (148 mL), or one 1 oz glass of hard liquor (44 mL). Lifestyle Work with your health care provider to maintain a healthy body weight or to lose weight. Ask what an ideal weight is for you. Get at least 30 minutes of exercise most days of the week. Activities may include walking, swimming, or biking. Include exercise to strengthen your muscles (resistance exercise), such as Pilates or lifting weights, as part of your weekly exercise routine. Try to do these types of exercises for 30 minutes at least 3 days a week. Do not use any products that contain nicotine or tobacco, such as cigarettes, e-cigarettes, and chewing tobacco. If you need help quitting, ask your health care provider. Monitor your blood pressure at home as told by your health care provider. Keep all follow-up visits as told by your health care provider. This is important. Medicines Take [id number] and prescription medicines only as told by your health care provider. Follow directions carefully. Blood pressure medicines must be taken as prescribed. Do not skip doses of blood pressure medicine. Doing this puts you at risk for problems and can make the medicine less effective. Ask your health care provider about side effects or reactions to medicines that you should watch for. Contact a health care provider if you: Think you are having a reaction to a medicine you are taking. Have headaches that keep coming back (recurring). Feel dizzy. Have swelling in your ankles. Have trouble with your vision. Get help right away if you: Develop a severe headache or confusion. Have unusual weakness or numbness. Feel faint. Have severe pain in your chest or abdomen. Vomit repeatedly. Have trouble breathing. Summary Hypertension is when the force of blood pumping through your arteries is too strong. If this condition is not controlled, it may put you at risk for serious complications. Your personal target blood pressure may vary depending on your medical conditions, your age, and other factors. For most people, a normal blood pressure is less than 120/80. Hypertension is treated with lifestyle changes, medicines, or a combination of both. Lifestyle changes include losing weight, eating a healthy, low-sodium diet, exercising more, and limiting alcohol. This information is not intended to replace advice given to you by your health care provider. Make sure you discuss any questions you have with your health care provider. Document Released: 11/05/2006 Document Revised: 07/16/2019 Document Reviewed: 07/16/2019 [employer] Patient Education 2020 [employer]. Dialysis Dialysis is a procedure that is done when the kidneys have stopped working properly (kidney failure). It may also be done earlier if it may help improve symptoms. During dialysis, wastes, salt, and extra water are removed from the blood, and the levels of certain minerals in the blood are maintained. Dialysis is done in sessions which are continued until the kidneys get better. If the kidneys cannot get better, such as in end-stage kidney disease, dialysis is continued for life or until you receive a new kidney from a donor (kidney transplant). There are two types of dialysis: hemodialysis and peritoneal dialysis. What is hemodialysis? Hemodialysis is when a machine called a dialyzer is used to filter the blood. Before starting hemodialysis, you will have surgery to create a site where blood can be removed from the body and returned to the body (vascular access). There are three types of vascular accesses: Arteriovenous fistula. This type of access is created when an artery and a vein (usually in the arm) are connected during surgery. The arteriovenous fistula usually takes 1 6 months to develop after surgery. It may last longer than the other types of vascular accesses and is less likely to become infected or cause blood clots. Arteriovenous graft. This type of access is created when an artery and a vein in the arm are connected during surgery with a tube. An arteriovenous graft can usually be used within 2 3 weeks of surgery. A venous catheter. To create this type of access, a thin tube (catheter) is placed in a large vein in your neck, chest, or groin. A venous catheter can be used right away. It is usually used as a temporary access when dialysis needs to begin immediately. During hemodialysis, blood leaves your body through your access site. It travels through a tube to the dialyzer, where it is filtered. The blood then returns to your body through another tube. Hemodialysis is usually done at a hospital or dialysis center three times a week. Visits last about 3 5 hours. With special training, it may also be done at home with the help of another person. What is peritoneal dialysis? Peritoneal dialysis is when the thin lining of the abdomen (peritoneum) and a fluid called dialysate are used to filter the blood. Before starting peritoneal dialysis, you will have surgery to place a catheter in your abdomen. The catheter will be used to transfer dialysate to and from your abdomen. At the start of a session, your abdomen is filled with dialysate. During the session, wastes, salt, and extra water in the blood pass through the peritoneum and into the dialysate. The dialysate is drained from the body at the end of the session. The process of filling and draining the dialysate is called an exchange. Exchanges are repeated until you have used up all the dialysate for the day. You may do peritoneal dialysis at home or at almost any other location. It is done every day. You may need up to five exchanges a day. Each exchange takes about 30 40 minutes. The amount of time the dialysate is in your body between exchanges is called a dwell. The dwell usually lasts 1.5 3 hours and can vary with each person. You may choose to do exchanges at night while you sleep, using a machine called a cycler. Which type of dialysis should I choose? Both types of dialysis have advantages and disadvantages. Talk with your health care provider about which type of dialysis is best for you. Your lifestyle, preferences, and medical condition should be considered. In some cases, only one type of dialysis can be chosen. Advantages of hemodialysis It is done less often than peritoneal dialysis. Someone else can do the dialysis for you. If you go to a dialysis center: ? Your health care provider can recognize any problems you may be having. ? You can interact with others who are having dialysis. This can provide you with emotional support. Disadvantages of hemodialysis Hemodialysis may cause cramps and low blood pressure. It may leave you feeling tired on the days you have the treatment. If you go to a dialysis center, you will need to make weekly appointments and work around the center s schedule. You will need to take extra care when traveling. If you usually get treatment in a dialysis center, you will need to arrange to visit a dialysis center near your destination. If you are having treatments at home, you will need to take the dialyzer with you when traveling. There are more eating restrictions than with peritoneal dialysis. Advantages of peritoneal dialysis It is less likely than hemodialysis to cause cramps and low blood pressure. There are fewer eating restrictions than with hemodialysis. You may do exchanges on your own wherever you are, including when you travel. Disadvantages of peritoneal dialysis It is done more often than hemodialysis. Doing peritoneal dialysis requires you to have a good use (dexterity) of your hands. You must also be able to lift bags. You must learn how to make your equipment free of germs (sterilization techniques). You will need to use these techniques every day to prevent infection. What changes will I need to make to my diet during dialysis? Both types of dialysis require you to make some changes to your diet. For example, you will need to limit your intake of foods that contain a lot of phosphorus and potassium. You will also need to limit your fluid intake. A diet and demo specialist (dietitian) can help you make a meal plan that can help improve your dialysis and your health. What should I expect when starting dialysis? Adjusting to the dialysis treatment, schedule, and diet can take some time. You may need to stop working and may not be able to do some of your normal activities. You may feel anxious or depressed when starting dialysis. Over time, many people feel better overall because of dialysis. You may be able to return to work after making some changes, such as reducing work intensity. Where to find more information National Kidney Foundation: www.kidney.org [place] [employer]: www.aakp.org [employer]: www.kidneyfund.org Summary During dialysis, wastes, salt, and extra water are removed from the blood, and the levels of certain minerals in the blood are maintained. There are two types of dialysis: hemodialysis and peritoneal dialysis. Hemodialysis is when a machine called a dialyzer is used to filter the blood. Hemodialysis is usually done by a health care provider at a hospital or dialysis center three times a week. Peritoneal dialysis is when the peritoneum is used as a filter. You may do peritoneal dialysis at home or at almost any other location. Both types of dialysis have advantages and disadvantages. Talk with your health care provider about which type of dialysis is best for you. This information is not intended to replace advice given to you by your health care provider. Make sure you discuss any questions you have with your health care provider. Document Released: 01/26/2004 Document Revised: 03/23/2020 Document Reviewed: 01/01/2018 [employer] Patient Education 2020 [employer]. Additional Information VACCINATE! IT SAVES LIVES! Members of the community who have not yet received the COVID-19 vaccine and would like to receive it can visit one of [facility] vaccine clinics. There are many vaccine clinic locations within the [facility]. For locations and available times, please visit https://gettheshot.coronavirus.o wio.gov/. It is important to note that some COVID mobile vaccine clinics are held outdoors and may be canceled in rainy or stormy conditions. To learn more about pediatric vaccinations (ages 5-11), we invite you to visit the [facility] webpage. [email or web address] [email or web address] [email or web address] To learn more about the COVID-19 vaccine, we invite you to visit the CDC website for a list of frequently asked questions.https://www.cdc.gov/co ronavirus/2019-ncov/vaccines/faq .html [facility] Patient Portal Access Instructions: Stay connected with your healthcare team and access your personal medical information anytime with the [facility] Patient Portal. Please follow the directions below to create your [employer] account: 1.Access the email account you provided upon registration to the hospital/physician office.2.Look for an invitation email from [facility].3.Open the email and access the invitation link: Accept Invitation to [employer].4.Fill in the required nguyen to create your account. To access your account, visit [email or web address]. Click the blue button labeled Access Patient Portal and then log in with the username and password that you created in the steps above. You will be able to view your test results, lab results, a summary of your visits, upcoming appointments and more. There is also a convenient messaging option where you can send secure messages to your provider. In addition, you will have the ability to download any documents or summaries to your computer and/or send the information securely to a physician. Remember that your healthcare information is confidential, so carefully consider who you will allow to register on the [facility] Patient Portal for access to your information. You can also access the [facility] Patient Portal on the [facility] artemio. Simply click on Patient Portal and then log into your account. If you would like to receive a full copy of your medical records, please contact the [facility] Medical Records Department by calling [phone], Sunday through Sunday between 8 a.m. and 4:30 p.m. HOW TO SAFELY DISPOSE OF PRESCRIPTION MEDICATIONS Please use one of the following methods to safely dispose of your unused medications. 1.Use a drug disposal kit: the drug disposal pouch allows you to safely discard your old and unused drugs. Ask your nurse to give you one when you are discharged.2.Visit a local take-back location: Many local pharmacies and police departments have programs that collect old and unwanted prescription drugs. Call your local pharmacy or go to http://bit.ly/6O7Hw9c to find one close to you.3.Make use of household items: Use cat litter or old coffee grounds to dispose medications if other options are not available. Mix your drugs with these household products, seal them in an airtight container and throw it into the garbage. Call [facility]: [phone] to be sure your drugs can be disposed of in this way. Some medicines may require a different approach.4.Never flush your medications down the toilet. IF YOU HAVE BEEN PRESCRIBED AN OPIOID FOR PAIN If you have been prescribed an opioid (such as hydrocodone, oxycodone or morphine), it is critical to understand the possible side effects and risks of opioid pain medications. Even when taken as directed, opioids can have several side effects including: Tolerance, meaning you might need to take more of a medication for the same pain relief. Nausea, vomiting and/or constipation. Sleepiness, dizziness, dry mouth, confusion, depression or itching. Physical dependence, meaning you have withdrawal symptoms when a medication is stopped, can develop within a few days. KNOW YOUR RESPONSIBILITIES It is important to know exactly how much and how often to take the opioid pain medications you are prescribed. Never take opioids in higher amounts or more often than prescribed. Do not combine opioids with alcohol or other drugs that cause drowsiness, such as benzodiazepines, also known as benzos, including diazepam and alprazolam, muscle relaxants or sleep aids. Never sell or share prescription opioids. This is illegal. Store opioids in a secure place and out of reach of others (including children, family, friends and visitors). The last page of this document has been signed and retained as a CHART COPY. Signatures Patient Education Materials Hypertension, Adult Dialysis Medication Leaflets My discharge plan and instructions have been reviewed and explained to me and I,GURINDER HAHN understand my current condition and have read and understand these discharge instructions. I have received a written copy of the plan/instructions. If I have questions, I am aware that I should contact my doctor. Patient/Care Management Associate Signature: Date/Time: Relationship to Patient: Witness Name/Signature: Date/Time: [facility] 02-15-2025 Nephrology Progress note Date of Service February 15, 2025 Subjective Feels well. No shortness of breath. No chest pain. Wants to go home. Objective Vitals and Measurements T: 36.4 C (Oral) TMIN: 36.0 C (Skin) TMAX: 36.8 C (Oral) HR: 82 RR: 18 BP: 179/100 SpO2: 95% WT: 127 kg Intake and Output 7AM Yesterday to 7AM Today Intake and Output (Last 24 hours) Intake Oral Intake 20.00 Output Urinary Catheter Output: 1670.00 Hemodialysis 2500.00 Stool Count 1.00 Diaper Count 1.00 Total Summary Total Intake 20.00 Total Output 4170.00 Fluid Balance -4150.00 Physical Exam General: No distress on 2 L nasal cannula HEENT: Mucosa was moist, sclera anicteric, extraocular muscles intact, JVD present Lungs: Clear bilaterally with no crackles wheezes or rhonchi Heart: Regular with no murmurs rubs or gallops Abdomen: Positive bowel sounds, soft, no palpable masses Extremities: 1+ edema, pulses 2+ in all 4 extremities Skin: No rashes, normal turgor Weight Current Weight Dosing Weight: 126.8 kg (02/15/25) Current Weight: 127 kg (02/15/25) Dosing Weight: 123.8 kg (02/14/25) Medications Medications (19) Active Scheduled: (13) amLODIPine 10 mg tablet 10 mg 1 tab(s), Oral, qDay apixaban 5 mg tablet 5 mg 1 tab(s), Oral, BID bumetanide 1 mg tablet 1 mg 1 tab(s), Oral, BID carvedilol 25 mg tablet 25 mg 1 tab(s), Oral, BIDM furosemide 100 mg/10 mL vial 100 mg 10 mL, IV Push, Once gabapentin 300 mg Capsule 300 mg 1 cap(s), Oral, qHS hydralazine 50 mg Tablet 50 mg 1 tab(s), Oral, TID insulin glargine 20 unit(s) 0.2 mL, Subcutaneous (INT), qHS insulin lispro 100 units/mL Soln (3 mL) Give 0-10 units/dose, Subcutaneous, TIDAC Nicoderm patch REMOVAL 1 EA, Miscellaneous, q24h nicotine 21 mg/24 hr ER patch 21 mg 1 patch(es), Transdermal, q24h pantoprazole 40 mg EC tablet 40 mg 1 tab(s), Oral, qDayAC rosuvastatin 10 mg tablet 10 mg 1 tab(s), Oral, qHS Continuous: (0) PRN: (6) acetaminophen 325 mg Tablet 650 mg 2 tab(s), Oral, q4h clonidine 0.1 mg tablet 0.1 mg 1 tab(s), Oral, BID dextrose 50% Solution Disp syringe 50 mL 25 gram(s) 50 mL, IV Push, AsDirected insulin regular human recombinant 100 units/ml (10 mL) Solution sliding scale insulin, Subcutaneous, q4h melatonin 3 mg tablet 3 mg 1 tab(s), Oral, qHS ondansetron 2 mg/ 1 mL 2 mL INJ 4 mg 2 mL, IV Push, q4h Lab Results 02/15 07:13 WBC: 9.0 Hgb: 10.0 L Hct: 31.7 L Platelet: 186 Neutrophil %: 84.3 H Glucose Level: 405 C Sodium Level: 134 L Potassium Level: 5.0 BUN: 40.0 H Creatinine Lvl (s): 3.93 H 02/14 06:41 WBC: 7.8 Hgb: 9.2 L Hct: 29.0 L Platelet: 185 Neutrophil %: 70.9 Glucose Level: 312 H Sodium Level: 137 Potassium Level: 4.4 BUN: 36.0 H Creatinine Lvl (s): 3.61 H EKG No qualifying data available. Assessment/Plan 1. Hypertension: Despite amlodipine and carvedilol at therapeutic doses, blood pressure remains elevated. Today we did isolated ultrafiltration for volume to see if this would help. Today increase hydralazine to 50 mg 3 times daily. Agree with adding clonidine as needed for systolics greater than 160. Discontinue steroids. Patient can present to dialysis tomorrow as an outpatient for further challenge of his weight. 2. Chronic kidney disease with acute kidney injury: Not yet improved. Will need dialysis as an outpatient. First outpatient treatment tomorrow. Challenge dry weight. Unfortunately this limits use of RAAS inhibition for blood pressure management. 3. Hyperkalemia: Addressed with dialysis. [1] Progress Note; GABRIELA LOTT MD 02/14/2025 13:23 EDT Digitally Signed by GABRIELA LOTT MD on 02/15/2025 03:[address] [facility] 02-14-2025 Note Date of Service 02/14/2025 Subjective Patient has been requesting to go home, states that he lost his father here and has a lot of anxiety anything this is contributing to his blood pressure. He otherwise denies any headache, chest pain, nausea or vomiting. No dizziness lightheadedness. Objective Vitals and Measurements T: 36.0 C (Skin) TMIN: 36.0 C (Skin) TMAX: 36.7 C (Oral) HR: 75 RR: 18 BP: 175/100 SpO2: 96% WT: 123.8 kg Intake and Output 7AM Yesterday to 7AM Today Intake and Output (Last 24 hours) Intake Oral Intake 780.00 Output Urine Voided 1400.00 Urinary Catheter Output: 2800.00 Hemodialysis 2500.00 Stool Count 1.00 Diaper Count 1.00 Total Summary Total Intake 780.00 Total Output 6700.00 Fluid Balance -5920.00 Physical Exam Resting in bed, no acute distress. Bilateral chest with scattered crackles, lower extremities with trace pedal edema bilaterally. Abdomen soft, obese, nontender, nondistended. Active bowel sounds. Alert and oriented x 3, no focal neurologic deficits. Right chest with hemodialysis catheter. Weight Dosing Weight: 123.8 kg (02/14/25) Dosing Weight: 127.1 kg (02/14/25) Medications Medications (17) Active Scheduled: (12) amLODIPine 10 mg tablet 10 mg 1 tab(s), Oral, qDay apixaban 5 mg tablet 5 mg 1 tab(s), Oral, BID bumetanide 1 mg tablet 1 mg 1 tab(s), Oral, BID carvedilol 25 mg tablet 25 mg 1 tab(s), Oral, BIDM gabapentin 300 mg Capsule 300 mg 1 cap(s), Oral, qHS insulin glargine 20 unit(s) 0.2 mL, Subcutaneous (INT), qHS insulin lispro 100 units/mL Soln (3 mL) Give 0-10 units/dose, Subcutaneous, TIDAC Nicoderm patch REMOVAL 1 EA, Miscellaneous, q24h nicotine 21 mg/24 hr ER patch 21 mg 1 patch(es), Transdermal, q24h pantoprazole 40 mg EC tablet 40 mg 1 tab(s), Oral, qDayAC predniSONE 20 mg tablet 40 mg 2 tab(s), Oral, qDayM rosuvastatin 10 mg tablet 10 mg 1 tab(s), Oral, qHS Continuous: (0) PRN: (5) acetaminophen 325 mg Tablet 650 mg 2 tab(s), Oral, q4h dextrose 50% Solution Disp syringe 50 mL 25 gram(s) 50 mL, IV Push, AsDirected insulin regular human recombinant 100 units/ml (10 mL) Solution sliding scale insulin, Subcutaneous, q4h melatonin 3 mg tablet 3 mg 1 tab(s), Oral, qHS ondansetron 2 mg/ 1 mL 2 mL INJ 4 mg 2 mL, IV Push, q4h Lab Results 02/14 06:41 WBC: 7.8 Hgb: 9.2 L Hct: 29.0 L Platelet: 185 Neutrophil %: 70.9 Glucose Level: 312 H Sodium Level: 137 Potassium Level: 4.4 BUN: 36.0 H Creatinine Lvl (s): 3.61 H 02/13 07:25 Glucose Level: 200 H Sodium Level: 137 Potassium Level: 4.5 BUN: 45.0 H Creatinine Lvl (s): 4.76 H Imaging Results and Diagnostics IR Tunneled HD Result Date: February 13, 2025 Verified By: DAMARI GASTELUM MD CLINICAL STATEMENT: IMPRESSION: Successful conversion of a temporary to tunneled hemodialysis catheter. Procedure was performed by Ritika Curtis PA-C IR Temporary Dialysis Catheter Result Date: February 10, 2025 Verified By: DAMARI GASTELUM MD CLINICAL STATEMENT: IMPRESSION: Successful placement of a temporary hemodialysis catheter NOTE: Temporary hemodialysis catheter intended for inpatient use only.Removal or conversion to a permanent tunneled catheter required prior tohospital discharge. Procedure performed by Ritika Curtis PA-C XR Chest 1 View Result Date: February 10, 2025 Verified By: LINA ARMANDO MD CLINICAL STATEMENT: IMPRESSION: No interval change. US Renal Result Date: February 10, 2025 Verified By: LINA ARMANDO MD CLINICAL STATEMENT: IMPRESSION: Unremarkable ultrasound of the kidneys. I have personally reviewed the images of this examination and agree with theresident's findings and interpretation. EKG No qualifying data available. 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 Patient presented with severe hyperkalemia and acute kidney injury. He was started on emergent dialysis and was admitted to MICU. Hyperkalemia has resolved with hemodialysis. Nephrology following. Recommending finishing 10-day course of prednisone 40 mg daily upon discharge for possible competent of AIN. Appreciate ongoing input from nephrology. 2. Regarding acute on chronic HFrEF Echocardiogram showed EF 40-45% unchanged. Patient has not been following with cardiology outpatient. Home Bumex 1 mg twice daily has been resumed per nephrology. Continue with hemodialysis, chair time Sunday at [facility]. Outpatient follow-up with cardiology for further GDMT optimization. Of note, SGLT2 inhibitor was not considered in the past because of his Claire's gangrene and Entresto was also discontinued because of GENE in the past per documentation. 3. Urology following due to concern for vesicocutaneous fistula. Patient prefers to follow-up with his urologist and is scheduled for outpatient CT and required cystoscopy. Recommendations from urology reviewed. Plan is to continue to follow-up with his outpatient urologist and repeat imaging as previously scheduled. Initial UA did show pyuria however patient does not have symptoms related to UTI. Was recently treated with Bactrim. 4. blood pressure continues to be suboptimal, will increase his amlodipine to 10 mg daily, carvedilol to 25 mg twice a day, heart rate able to tolerate. Discussed with nephrology, will plan for ultrafiltration with goal fluid removal of 2 to 3 L today. Hopefully this can further assist with better blood pressure management. If above still not sufficient, may need to consider hydralazine or addition of clonidine as needed. Appreciate input from nephrology. 5. Glycemic control. ADA diet plus sliding scale insulin and insulin Lantus 20 units every night 6. Continue home gabapentin. Discussed plan of care with patient at bedside. He has expressed immense interest in being discharged today, I explained to him that although my intention is to discharge the patient, it is imperative that we do so when it is safe and not a threat to his health. He understood that the blood pressure is suboptimal, he therefore expressed understanding that he would require further intervention here in the hospital. Expressed to him that the goal is to hopefully manage his blood pressure better and plan for discharge tomorrow. This is a note transcribed by me, the attending physician on service using the '[employer] dictation software. Please excuse any grammatical errors, repetitions/duplications if any are present in the entirety of this note. Thank you. Level of Care Indication Regular Floor DVT Prophylaxis Full anticoagulation Maintenance IVF Indication NA / No maintenance IVF Indwelling Urinary Catheter Indication NA No indwelling catheter Anticipated Timeline of Discharge 24 hours Anticipated DC Disposition Home without services patient already has chair time for dialysis at [facility] in Sunday schedule. Digitally Signed by ORALIA SAMUELS MD on 02/14/2025 04:[address] [facility] 02-14-2025 Note ORIGINAL PROCEDURE: Conversion of temporary to tunneled hemodialysis catheter with fluoroscopy WINDROWER OPERATOR: Ritika Curtis PA-C CLINICAL STATEMENT: Gene MATERIALS: MedComp 14.5 Fr Hemo-Flow, 23 cm cuff to tip Amplatz wire Hurley wire Dermabond 2-0 Ethilon suture 4-0 Vicryl suture EXISTING ACCESS SITE: Right internal jugular vein ANESTHESIA: Local FLUOROSCOPY: 8.1 min AIR KERMA DOSE: 385 mGy The procedure, risks, limitations, and alternatives were discussed. All questions were answered. Consent was obtained. Accompanying paperwork was verified for accuracy. Directed history and physical exam performed prior to the procedure. Medication reconciliation was performed by nursing personnel. Procedure was performed using a cap, sterile gown, sterile gloves, a large sterile sheet, hand hygiene and chlorhexidine for cutaneous antisepsis. The patient was positioned supine on the angiographic table and prepped and draped in usual sterile fashion. A critical pause was performed with assisting personnel just prior to the procedure with the patient's identity confirmed using 2 identifiers, confirming site and side. A wire was placed through the existing catheter, initially unable to be advanced into the IVC. The old catheter was exchanged for a scout catheter and directed into the Right hepatic vein. Scout catheter exchanged for a peel away sheath after dilatation of the tract over the wire. The planned tunnel in the upper chest was anesthestized with 2% lidocaine with epinephrine. A dermatotomy was made. The catheter was tunneled from the dermatotomy to the neck access site. The catheter was advanced through the peel away sheath, which was subsequently removed. The cuff is located adjacent to the catheter site in the upper chest to facilitate easier removal in the future. Both lumens aspirate and flush very quickly. Both lumens were flushed with saline. Sterile caps attached. Fluoroscopy demonstrates the catheter tip near the cavoatrial junction. A documentation fluoroscopic image obtained. The catheter was fixed to the skin with suture. A sterile dressing was applied. COMPLICATIONS: None EBL: Minimal PATIENT CONDITION: Stable, unchanged IMPRESSION: Successful conversion of a temporary to tunneled hemodialysis catheter. Procedure was performed by Ritika Curtis PA-C Interpreted by: Damari Gastelum MD Preliminary Report By: Ritika Curtis PA-C Electronically signed By Damari Gastelum MD Dictated Date: 02/13/2025 5:19:43 PM Prelim Date: 02/13/2025 5:22:47 PM Sign Date: 02/14/2025 2:29:00 PM Ordering Provider: [facility] 02-14-2025 Hospital Discharg e instructions Patient Education 02/14/2025 11:54:47 Hypertension, Adult Hypertension, Adult High blood pressure (hypertension) is when the force of blood pumping through the arteries is too strong. The arteries are the blood vessels that carry blood from the heart throughout the body. Hypertension forces the heart to work harder to pump blood and may cause arteries to become narrow or stiff. Untreated or uncontrolled hypertension can cause a heart attack, heart failure, a stroke, kidney disease, and other problems. A blood pressure reading consists of a higher number over a lower number. Ideally, your blood pressure should be below 120/80. The first (top) number is called the systolic pressure. It is a measure of the pressure in your arteries as your heart beats. The second (bottom) number is called the diastolic pressure. It is a measure of the pressure in your arteries as the heart relaxes. What are the causes? The exact cause of this condition is not known. There are some conditions that result in or are related to high blood pressure. What increases the risk? Some risk factors for high blood pressure are under your control. The following factors may make you more likely to develop this condition: Smoking. Having type 2 diabetes mellitus, high cholesterol, or both. Not getting enough exercise or physical activity. Being overweight. Having too much fat, sugar, calories, or salt (sodium) in your diet. Drinking too much alcohol. Some risk factors for high blood pressure may be difficult or impossible to change. Some of these factors include: Having chronic kidney disease. Having a family history of high blood pressure. Age. Risk increases with age. Race. You may be at higher risk if you are . Gender. Men are at higher risk than women before age 45. After age 65, women are at higher risk than men. Having obstructive sleep apnea. Stress. What are the signs or symptoms? High blood pressure may not cause symptoms. Very high blood pressure (hypertensive crisis) may cause: Headache. Anxiety. Shortness of breath. Nosebleed. Nausea and vomiting. Vision changes. Severe chest pain. Seizures. How is this diagnosed? This condition is diagnosed by measuring your blood pressure while you are seated, with your arm resting on a flat surface, your legs uncrossed, and your feet flat on the floor. The cuff of the blood pressure monitor will be placed directly against the skin of your upper arm at the level of your heart. It should be measured at least twice using the same arm. Certain conditions can cause a difference in blood pressure between your right and left arms. Certain factors can cause blood pressure readings to be lower or higher than normal for a short period of time: When your blood pressure is higher when you are in a health care provider's office than when you are at home, this is called white coat hypertension. Most people with this condition do not need medicines. When your blood pressure is higher at home than when you are in a health care provider's office, this is called masked hypertension. Most people with this condition may need medicines to control blood pressure. If you have a high blood pressure reading during one visit or you have normal blood pressure with other risk factors, you may be asked to: Return on a different day to have your blood pressure checked again. Monitor your blood pressure at home for 1 week or longer. If you are diagnosed with hypertension, you may have other blood or imaging tests to help your health care provider understand your overall risk for other conditions. How is this treated? This condition is treated by making healthy lifestyle changes, such as eating healthy foods, exercising more, and reducing your alcohol intake. Your health care provider may prescribe medicine if lifestyle changes are not enough to get your blood pressure under control, and if: Your systolic blood pressure is above 130. Your diastolic blood pressure is above 80. Your personal target blood pressure may vary depending on your medical conditions, your age, and other factors. Follow these instructions at home: Eating and drinking Eat a diet that is high in fiber and potassium, and low in sodium, added sugar, and fat. An example eating plan is called the DASH (Dietary Approaches to Stop Hypertension) diet. To eat this way: ?Eat plenty of fresh fruits and vegetables. Try to fill one half of your plate at each meal with fruits and vegetables. ?Eat whole grains, such as whole-wheat pasta, brown rice, or whole-grain bread. Fill about one fourth of your plate with whole grains. ?Eat or drink low-fat dairy products, such as skim milk or low-fat yogurt. ?Avoid fatty cuts of meat, processed or cured meats, and poultry with skin. Fill about one fourth of your plate with lean proteins, such as fish, chicken without skin, beans, eggs, or tofu. ?Avoid pre-made and processed foods. These tend to be higher in sodium, added sugar, and fat. Reduce your daily sodium intake. Most people with hypertension should eat less than 1,500 mg of sodium a day. Do not drink alcohol if: ?Your health care provider tells you not to drink. ?You are , may be , or are planning to become . If you drink alcohol: ?Limit how much you use to: ?0 1 drink a day for women. ?0 2 drinks a day for men. ?Be aware of how much alcohol is in your drink. In the [place] one drink equals one 12 oz bottle of beer (355 mL), one 5 oz glass of wine (148 mL), or one 1 oz glass of hard liquor (44 mL). Lifestyle Work with your health care provider to maintain a healthy body weight or to lose weight. Ask what an ideal weight is for you. Get at least 30 minutes of exercise most days of the week. Activities may include walking, swimming, or biking. Include exercise to strengthen your muscles (resistance exercise), such as Pilates or lifting weights, as part of your weekly exercise routine. Try to do these types of exercises for 30 minutes at least 3 days a week. Do not use any products that contain nicotine or tobacco, such as cigarettes, e-cigarettes, and chewing tobacco. If you need help quitting, ask your health care provider. Monitor your blood pressure at home as told by your health care provider. Keep all follow-up visits as told by your health care provider. This is important. Medicines Take lpnh-pjr-jllaxpk and prescription medicines only as told by your health care provider. Follow directions carefully. Blood pressure medicines must be taken as prescribed. Do not skip doses of blood pressure medicine. Doing this puts you at risk for problems and can make the medicine less effective. Ask your health care provider about side effects or reactions to medicines that you should watch for. Contact a health care provider if you: Think you are having a reaction to a medicine you are taking. Have headaches that keep coming back (recurring). Feel dizzy. Have swelling in your ankles. Have trouble with your vision. Get help right away if you: Develop a severe headache or confusion. Have unusual weakness or numbness. Feel faint. Have severe pain in your chest or abdomen. Vomit repeatedly. Have trouble breathing. Summary Hypertension is when the force of blood pumping through your arteries is too strong. If this condition is not controlled, it may put you at risk for serious complications. Your personal target blood pressure may vary depending on your medical conditions, your age, and other factors. For most people, a normal blood pressure is less than 120/80. Hypertension is treated with lifestyle changes, medicines, or a combination of both. Lifestyle changes include losing weight, eating a healthy, low-sodium diet, exercising more, and limiting alcohol. This information is not intended to replace advice given to you by your health care provider. Make sure you discuss any questions you have with your health care provider. Document Released: 11/05/2006 Document Revised: 07/16/2019 Document Reviewed: 07/16/2019 [employer] Patient Education 2020 [employer] 02/14/2025 11:54:37 Dialysis Dialysis Dialysis is a procedure that is done when the kidneys have stopped working properly (kidney failure). It may also be done earlier if it may help improve symptoms. During dialysis, wastes, salt, and extra water are removed from the blood, and the levels of certain minerals in the blood are maintained. Dialysis is done in sessions which are continued until the kidneys get better. If the kidneys cannot get better, such as in end-stage kidney disease, dialysis is continued for life or until you receive a new kidney from a donor (kidney transplant). There are two types of dialysis: hemodialysis and peritoneal dialysis. What is hemodialysis? Hemodialysis is when a machine called a dialyzer is used to filter the blood. Before starting hemodialysis, you will have surgery to create a site where blood can be removed from the body and returned to the body (vascular access). There are three types of vascular accesses: Arteriovenous fistula. This type of access is created when an artery and a vein (usually in the arm) are connected during surgery. The arteriovenous fistula usually takes 1 6 months to develop after surgery. It may last longer than the other types of vascular accesses and is less likely to become infected or cause blood clots. Arteriovenous graft. This type of access is created when an artery and a vein in the arm are connected during surgery with a tube. An arteriovenous graft can usually be used within 2 3 weeks of surgery. A venous catheter. To create this type of access, a thin tube (catheter) is placed in a large vein in your neck, chest, or groin. A venous catheter can be used right away. It is usually used as a temporary access when dialysis needs to begin immediately. During hemodialysis, blood leaves your body through your access site. It travels through a tube to the dialyzer, where it is filtered. The blood then returns to your body through another tube. Hemodialysis is usually done at a hospital or dialysis center three times a week. Visits last about 3 5 hours. With special training, it may also be done at home with the help of another person. What is peritoneal dialysis? Peritoneal dialysis is when the thin lining of the abdomen (peritoneum) and a fluid called dialysate are used to filter the blood. Before starting peritoneal dialysis, you will have surgery to place a catheter in your abdomen. The catheter will be used to transfer dialysate to and from your abdomen. At the start of a session, your abdomen is filled with dialysate. During the session, wastes, salt, and extra water in the blood pass through the peritoneum and into the dialysate. The dialysate is drained from the body at the end of the session. The process of filling and draining the dialysate is called an exchange. Exchanges are repeated until you have used up all the dialysate for the day. You may do peritoneal dialysis at home or at almost any other location. It is done every day. You may need up to five exchanges a day. Each exchange takes about 30 40 minutes. The amount of time the dialysate is in your body between exchanges is called a dwell. The dwell usually lasts 1.5 3 hours and can vary with each person. You may choose to do exchanges at night while you sleep, using a machine called a cycler. Which type of dialysis should I choose? Both types of dialysis have advantages and disadvantages. Talk with your health care provider about which type of dialysis is best for you. Your lifestyle, preferences, and medical condition should be considered. In some cases, only one type of dialysis can be chosen. Advantages of hemodialysis It is done less often than peritoneal dialysis. Someone else can do the dialysis for you. If you go to a dialysis center: ?Your health care provider can recognize any problems you may be having. ?You can interact with others who are having dialysis. This can provide you with emotional support. Disadvantages of hemodialysis Hemodialysis may cause cramps and low blood pressure. It may leave you feeling tired on the days you have the treatment. If you go to a dialysis center, you will need to make weekly appointments and work around the center s schedule. You will need to take extra care when traveling. If you usually get treatment in a dialysis center, you will need to arrange to visit a dialysis center near your destination. If you are having treatments at home, you will need to take the dialyzer with you when traveling. There are more eating restrictions than with peritoneal dialysis. Advantages of peritoneal dialysis It is less likely than hemodialysis to cause cramps and low blood pressure. There are fewer eating restrictions than with hemodialysis. You may do exchanges on your own wherever you are, including when you travel. Disadvantages of peritoneal dialysis It is done more often than hemodialysis. Doing peritoneal dialysis requires you to have a good use (dexterity) of your hands. You must also be able to lift bags. You must learn how to make your equipment free of germs (sterilization techniques). You will need to use these techniques every day to prevent infection. What changes will I need to make to my diet during dialysis? Both types of dialysis require you to make some changes to your diet. For example, you will need to limit your intake of foods that contain a lot of phosphorus and potassium. You will also need to limit your fluid intake. A diet and demo specialist (dietitian) can help you make a meal plan that can help improve your dialysis and your health. What should I expect when starting dialysis? Adjusting to the dialysis treatment, schedule, and diet can take some time. You may need to stop working and may not be able to do some of your normal activities. You may feel anxious or depressed when starting dialysis. Over time, many people feel better overall because of dialysis. You may be able to return to work after making some changes, such as reducing work intensity. Where to find more information National Kidney Foundation: www.kidney.org [place] [employer]: www.aakp.org [place] [employer]: www.kidneyfund.org Summary During dialysis, wastes, salt, and extra water are removed from the blood, and the levels of certain minerals in the blood are maintained. There are two types of dialysis: hemodialysis and peritoneal dialysis. Hemodialysis is when a machine called a dialyzer is used to filter the blood. Hemodialysis is usually done by a health care provider at a hospital or dialysis center three times a week. Peritoneal dialysis is when the peritoneum is used as a filter. You may do peritoneal dialysis at home or at almost any other location. Both types of dialysis have advantages and disadvantages. Talk with your health care provider about which type of dialysis is best for you. This information is not intended to replace advice given to you by your health care provider. Make sure you discuss any questions you have with your health care provider. Document Released: 01/26/2004 Document Revised: 03/23/2020 Document Reviewed: 01/01/2018 [employer] Patient Education 2019 [employer]. Follow Up Care 02/09/2025 22:52:31 With:TU DUTTON MD, [facility] Address: [address] [place] [address]- [phone] When:Within 3 Week(s) Comments:Schedule appointment as soon as possible With:CORAL CARY MD Address: [address] [facility] [place] [address]- [phone] When:1-2 days Comments:Schedule appointment as soon as possible With:YAMILET LEE MD Address: [address] [place] [address] [id number] [facility] [place] [address] [phone] When:Within 4 Week(s) Comments:Schedule appointment as soon as possible With:Nikita Garcia Address:Unknown When:1-2 days Comments:Your hemodialysis schedule is Mondays, Sunday and Fridays at 12pm. You will need to arrive 30 minutes early for your first treatment. First treatment will be SundayFebruary 16. With:PHOEBE ADAM APRN-PRODUCT ENGINEER Address: [address] [place] [phone] When:1-2 days Comments:Please call the office to schedule a hospital follow up appointment. [facility] 02-14-2025 Nephrology Progress note Date of Service February 14, 2025 Subjective Denies complaints once at home. No shortness of breath. No chest pain. Still edema. Tolerated dialysis yesterday. Objective Vitals and Measurements T: 36.4 C (Oral) TMIN: 36.4 C (Oral) TMAX: 36.7 C (Oral) HR: 80 RR: 20 BP: 195/106 SpO2: 92% Intake and Output 7AM Yesterday to 7AM Today Intake and Output (Last 24 hours) Intake Oral Intake 1420.00 Output Urine Voided 1400.00 Urinary Catheter Output: 3150.00 Stool Count 1.00 Diaper Count 1.00 Total Summary Total Intake 1420.00 Total Output 4550.00 Fluid Balance -3130.00 Physical Exam General: No distress on 2 L nasal cannula HEENT: Mucosa was moist, sclera anicteric, extraocular muscles intact, JVD present Lungs: Clear bilaterally with no crackles wheezes or rhonchi Heart: Regular with no murmurs rubs or gallops Abdomen: Positive bowel sounds, soft, no palpable masses Extremities: 1+ edema, pulses 2+ in all 4 extremities Skin: No rashes, normal turgor Weight Dosing Weight: 130.3 kg (02/13/25) Dosing Weight: 133 kg (02/13/25) Medications Medications (17) Active Scheduled: (12) amLODIPine 10 mg tablet 10 mg 1 tab(s), Oral, qDay apixaban 5 mg tablet 5 mg 1 tab(s), Oral, BID bumetanide 1 mg tablet 1 mg 1 tab(s), Oral, BID carvedilol 25 mg tablet 25 mg 1 tab(s), Oral, BIDM gabapentin 300 mg Capsule 300 mg 1 cap(s), Oral, qHS insulin glargine 20 unit(s) 0.2 mL, Subcutaneous (INT), qHS insulin lispro 100 units/mL Soln (3 mL) Give 0-10 units/dose, Subcutaneous, TIDAC Nicoderm patch REMOVAL 1 EA, Miscellaneous, q24h nicotine 21 mg/24 hr ER patch 21 mg 1 patch(es), Transdermal, q24h pantoprazole 40 mg EC tablet 40 mg 1 tab(s), Oral, qDayAC predniSONE 20 mg tablet 40 mg 2 tab(s), Oral, qDayM rosuvastatin 10 mg tablet 10 mg 1 tab(s), Oral, qHS Continuous: (0) PRN: (5) acetaminophen 325 mg Tablet 650 mg 2 tab(s), Oral, q4h dextrose 50% Solution Disp syringe 50 mL 25 gram(s) 50 mL, IV Push, AsDirected insulin regular human recombinant 100 units/ml (10 mL) Solution sliding scale insulin, Subcutaneous, q4h melatonin 3 mg tablet 3 mg 1 tab(s), Oral, qHS ondansetron 2 mg/ 1 mL 2 mL INJ 4 mg 2 mL, IV Push, q4h Lab Results 02/14 06:41 WBC: 7.8 Hgb: 9.2 L Hct: 29.0 L Platelet: 185 Neutrophil %: 70.9 Glucose Level: 312 H Sodium Level: 137 Potassium Level: 4.4 BUN: 36.0 H Creatinine Lvl (s): 3.61 H 02/13 07:25 Glucose Level: 200 H Sodium Level: 137 Potassium Level: 4.5 BUN: 45.0 H Creatinine Lvl (s): 4.76 H EKG No qualifying data available. Assessment/Plan 1. Hypertension: Despite amlodipine and carvedilol at therapeutic doses, blood pressure remains elevated. I believe he is not at dry weight or euvolemic yet. Prior to discharge I would recommend isolated ultrafiltration for 2 and half to 3 L. 2. Chronic kidney disease with acute kidney injury: Not yet improved. Will need dialysis as an outpatient. Currently fluid overloaded. Plan for isolated ultrafiltration as mentioned above. Digitally Signed by GABRIELA LOTT MD on 02/14/2025 01:[address] [facility] 02-13-2025 Note Exam Date Time Procedure Performing Provider Status 02/13/25 3:20 PM IR Tunneled HD DAMARI GASTELUM MD; Auth (Verified) [id number] ORIGINAL PROCEDURE: Conversion of temporary to tunneled hemodialysis catheter with fluoroscopy WINDROWER OPERATOR: Ritika Curtis PA-C CLINICAL STATEMENT: Gene MATERIALS: MedComp 14.5 Fr Hemo-Flow, 23 cm cuff to tip Amplatz wire Hurley wire Dermabond 2-0 Ethilon suture 4-0 Vicryl suture EXISTING ACCESS SITE: Right internal jugular vein ANESTHESIA: Local FLUOROSCOPY: 8.1 min AIR KERMA DOSE: 385 mGy The procedure, risks, limitations, and alternatives were discussed. All questions were answered. Consent was obtained. Accompanying paperwork was verified for accuracy. Directed history and physical exam performed prior to the procedure. Medication reconciliation was performed by nursing personnel. Procedure was performed using a cap, sterile gown, sterile gloves, a large sterile sheet, hand hygiene and chlorhexidine for cutaneous antisepsis. The patient was positioned supine on the angiographic table and prepped and draped in usual sterile fashion. A critical pause was performed with assisting personnel just prior to the procedure with the patient's identity confirmed using 2 identifiers, confirming site and side. A wire was placed through the existing catheter, initially unable to be advanced into the IVC. The old catheter was exchanged for a scout catheter and directed into the Right hepatic vein. Scout catheter exchanged for a peel away sheath after dilatation of the tract over the wire. The planned tunnel in the upper chest was anesthestized with 2% lidocaine with epinephrine. A dermatotomy was made. The catheter was tunneled from the dermatotomy to the neck access site. The catheter was advanced through the peel away sheath, which was subsequently removed. The cuff is located adjacent to the catheter site in the upper chest to facilitate easier removal in the future. Both lumens aspirate and flush very quickly. Both lumens were flushed with saline. Sterile caps attached. Fluoroscopy demonstrates the catheter tip near the cavoatrial junction. A documentation fluoroscopic image obtained. The catheter was fixed to the skin with suture. A sterile dressing was applied. COMPLICATIONS: None EBL: Minimal PATIENT CONDITION: Stable, unchanged IMPRESSION: Successful conversion of a temporary to tunneled hemodialysis catheter. Procedure was performed by Ritika Curtis PA-C Interpreted by: Damari Gastelum MD Preliminary Report By: Ritika Curtis PA-C Electronically signed By Damari Gastelum MD Dictated Date: 02/13/2025 5:19:43 PM Prelim Date: 02/13/2025 5:22:47 PM Sign Date: 02/14/2025 2:29:00 PM Ordering Provider: [facility]03-28-2025 Note IR Procedure Record Summary Primary Physician: Finalized Date/Time: 02/13/25 15:20:07 Pt. Name: GURINDER HAHNO.B./Sex: 1975 Male Med Rec #: [id number] Physician: VIRIDIANA WILLIAM MD Financial #: [id number] Pt. Type: I Room/Bed: [facility]/A Admit/Disch: 02/10/25 01:15:00 - Institution: Allergies identified in patient's electronic medical record at time of printing on 02/13/25 Entry 1 Entry 2 Substance ampicillin penicillin Reaction Type Allergy Allergy Last Modified By: CELSO Hughes RN Yvonne M 04/26/24 11:25:34 04/26/24 11:24:22 Case Attendance- IR Entry 1 Entry 2 Entry 3 Case Attendee RITIKA CURTIS Rad Tech Donna Fierstos, Megan R Rad PA-C Tech Role Performed Radiology PA/RA Scrub Technologist Circulating Technologist Details Time In 02/13/25 14:33:00 02/13/25 14:16:00 02/13/25 14:16:00 Time Out 02/13/25 15:11:00 02/13/25 15:25:00 02/13/25 15:25:00 Procedure/Preference IR Tunneled HD (SN) IR Tunneled HD (SN) IR Tunneled HD (SN) Card Last Modified By: Veronica Stratton Jacque M. Brooks, Jacque M. 02/13/25 15:20:04 02/13/25 15:20:04 02/13/25 15:20:04 Entry 4 Entry 5 Entry 6 Case Attendee Elena Nava CHRISTOPHER MD BUCHINO, JAMES MD RN Role Performed Procedure Nurse Resident 4 Radiologist Procedure Details Time In 02/13/25 14:16:00 02/13/25 14:46:00 02/13/25 14:46:00 Time Out 02/13/25 15:25:00 02/13/25 15:11:00 02/13/25 14:59:00 Procedure/Preference IR Tunneled HD (SN) IR Tunneled HD (SN) IR Tunneled HD (SN) Card Last Modified By: Veronica Stratton Jacque M. Brooks, Jacque M. 02/13/25 15:20:04 02/13/25 15:20:04 02/13/25 15:20:04 Radiology Procedures- IR Entry 1 Procedure/Preference IR Tunneled HD (SN) Actual Procedure IR TUNNELED HD Card Primary Procedure Yes Primary Surgeon RITIKA CURTIS PA-C Anesthesia/Sedation Local Type Additional Procedure Times Start 02/13/25 14:34:00 Stop 02/13/25 15:11:00 Specialty Service SN Radiology Procedure EBL 5 mL Last Modified By: Veronica Stratton 02/13/25 15:11:31 Radiology Procedure Details - IR Entry 1 Radiology Sedation Case Times Sedation Total Time 0 min Radiology - Fluid/Drainage Radiology Contrast Contrast Used? No Radiology Flouroscopy Fluoroscopy Used? Yes Fluoro Dose (mGy) 385 Fluoro Time 8.1 min Radiology Local Local Used? Yes Local Type: Lidocaine with epi Local Dose 15cc Radiology Procedure Site Site/Location Right IJ/Chest Site Condition No complications Suture 2.0 Ethilon Suture, Dressing Type Bioclusive 2 X 3, Liquiband Skin Adhesive Tagaderm Last Modified By: Veronica Stratton 02/13/25 15:12:53 General Case Data - IR Entry 1 Case Information Room AH IR 16 Case Level IR Level 2 Wound Class None Specialty SN Radiology Procedure ASA Class None Diagnosis Preop Diagnosis GENE Postop Same As Preop Yes Postop Diagnosis GENE Last Modified By: Veronica Stratton 02/13/25 14:28:28 Procedure Case Times- IR Entry 1 Patient In Procedure Patient In OR 02/13/25 14:16:00 Patient Out of OR 02/13/25 15:25:00 Procedure Start/Stop Procedure Start Time 02/13/25 14:34:00 Procedure Stop Time 02/13/25 15:11:00 Last Modified By: Veronica Stratton 02/13/25 15:20:02 Immediate Post OP Note - IR Entry 1 Immediate Post Yes Procedure Note displayed for Physician to review Closure Technique Closure Technique Other than Primary Last Modified By: Veronica Stratton 02/13/25 14:27:59 Immediate Post OP Note - IR Signed By: RITIKA CURTIS PA-C 02/13/25 15:11 Allergy Information- IR Entry 1 Allergies Reviewed? Yes Allergies Reviewed Patient With Last Modified By: Veronica Stratton 02/13/25 14:24:01 Radiology Protocols/Time Out- IR Entry 1 Preprocedure Clinician Verifies Correct patient ID When Clinically Confirmation of correct using name & date Indicated side(s) and site(s) or MRN, Accurate procedure, complete Informed Consent, H & P update immediately prior to procedure, if applicable OR/Procedure Room/Bedside Time 02/13/25 14:34:00 Clinician Verifies Correct patient identity including EMR & records using name and date or medical record number, Accurate procedure consent form, Correct patient position, Necessary equipment is available When Applicable Confirmation correct Team Members RITIKA CURTIS side and site marked, Present for Time Out Gustabo BERG Rad Tech Confirm/obtain preop Nevaeh, Fierstos, Anny antibiotic order., R Shoe Repairer Apprentice, Schultheis, Alcohol based prep dry Elena Huerta RN Instrument Sterility Procedure IR Tunneled HD (SN) Last Modified By: Veronica Stratton 02/13/25 14:34:39 Skin Prep- IR Entry 1 Procedure IR Tunneled HD (SN) Skin Prep Prep Area Chest, Neck Side Right By Mando Montejo Nevaeh Prep Agents Chloraprep Hair Removal Method N/A Last Modified By: Veronica Stratton 02/13/25 14:27:38 Patient Positioning- IR Entry 1 Procedure IR Tunneled HD (SN) Body Position OP Supine Feet Uncrossed? n/a Pressure Points n/a Checked Last Modified By: Veronica Stratton 02/13/25 14:27:48 Implants- IR Entry 1 Implant/Explant Implant Implant Description CATH HEMO-FLOW [id number] Wasted? No Lot Number [id number] Physician Liaison medCOMP Size 14.5F x 28cm Expiration Date 12/13/26 Implant Site Right IJ/Chest Quantity 1 Last Modified By: Veronica Stratton 02/13/25 14:41:46 Radiology Procedure Plan - IR Entry 1 Radiology - Nursing Care Plan Outcome Statement The patient Outcome Statement The patient receives demonstrates knowledge Cont. appropriate of the expected medication(s), safely responses to the administered during the operative/invasive perioperative/invasive procedure., The period., The patient is patient's value system, free from signs and lifestyle, ethnicity, symptoms of injury and culture are caused by extraneous considered, respected, objects (equipment, and incorporated in the instrumentation, perioperative plan of sponges, or sharps)., care., The patient is The patient is free free from signs and from signs and symptoms symptoms of infection., of electrical injury. The patient is free from signs and symptoms of injury related to positioning. Radiology - Action Plan Outcomes Met? Yes Internal Grinder Tender Elena Nava panelboard operator Plan Last Modified By: Veronica Stratton 02/13/25 14:28:14 Case Comments Finalized By: Veronica Stratton Document Signatures Signed By: Veronica Stratton 02/13/25 15:[address] [id number] Neph[facility] Progress note Date of Service 02/13/2025 Subjective report being comfortable. makes urine. on room air Objective Vitals and Measurements T: 36.2 C (Skin) TMIN: 36.1 C (Oral) TMAX: 37 C (Oral) HR: 76 RR: 18 BP: 192/113 SpO2: 94% WT: 133.0 kg Intake and Output 7AM Yesterday to 7AM Today Intake and Output (Last 24 hours) Intake Oral Intake 560.00 Output Urinary Catheter Output: 1300.00 Hemodialysis 2000.00 Stool Count 0.00 Total Summary Total Intake 560.00 Total Output 3300.00 Fluid Balance -2740.00 Physical Exam General Appearance: Patient comfortable, morbidly obese, chronically ill , not in acute distress Head: Normocephalic, atraumatic Neck: Supple, no JVD Cardiac: Audible S1/S2,RRR Lungs: Clear to auscultation bilaterally, no wheeze, Abdomen: Soft , Nontender, non distended : Deferred Musculoskeletal: no gross deformities Extremities: +2 pedal edema Neurological: Alert, oriented x 3, CN II-XII intact Skin: No rash or ulcers Weight Dosing Weight: 133 kg (02/13/25) Dosing Weight: 135.8 kg (02/11/25) Medications Medications (18) Active Scheduled: (13) amLODIPine 5 mg tablet 5 mg 1 tab(s), Oral, qDay apixaban 5 mg tablet 5 mg 1 tab(s), Oral, BID bumetanide 1 mg tablet 1 mg 1 tab(s), Oral, BID carvedilol 6.25 mg tablet 6.25 mg 1 tab(s), Oral, BIDM clindamycin PMX 600 mg 50 mL, IV Piggyback, Once gabapentin 300 mg Capsule 300 mg 1 cap(s), Oral, qHS insulin glargine 20 unit(s) 0.2 mL, Subcutaneous (INT), qHS insulin lispro 100 units/mL Soln (3 mL) Give 0-10 units/dose, Subcutaneous, TIDAC methylPREDNISolone succ 40mg (40 mg/1mL) after dilution 40 mg 1 mL, IV Push, qDay Nicoderm patch REMOVAL 1 EA, Miscellaneous, q24h nicotine 21 mg/24 hr ER patch 21 mg 1 patch(es), Transdermal, q24h pantoprazole 40 mg EC tablet 40 mg 1 tab(s), Oral, qDayAC rosuvastatin 10 mg tablet 10 mg 1 tab(s), Oral, qHS Continuous: (0) PRN: (5) acetaminophen 325 mg Tablet 650 mg 2 tab(s), Oral, q4h dextrose 50% Solution Disp syringe 50 mL 25 gram(s) 50 mL, IV Push, AsDirected insulin regular human recombinant 100 units/ml (10 mL) Solution sliding scale insulin, Subcutaneous, q4h melatonin 3 mg tablet 3 mg 1 tab(s), Oral, qHS ondansetron 2 mg/ 1 mL 2 mL INJ 4 mg 2 mL, IV Push, q4h Lab Results 02/13 07:25 Glucose Level: 200 H Sodium Level: 137 Potassium Level: 4.5 BUN: 45.0 H Creatinine Lvl (s): 4.76 H 02/12 06:21 WBC: 7.5 Hgb: 8.5 L Hct: 27.5 L Platelet: 204 Glucose Level: 210 H Sodium Level: 139 Potassium Level: 4.7 BUN: 38.0 H Creatinine Lvl (s): 4.14 H EKG No qualifying data available. Assessment/Plan 1. Acute renal failure cr 6 on admission 2. Critical hyperkalemia 7.1 resolved 3. CKD stage IIIb baseline 1.9 2.0 2/2 diabetic nephropathy hypertension and heart disease 4. Hypertension 5. Volume overload 6. History of left gluteal abscess, Claire's gangrene, HFrEF, DM type II Worsening GENE could be related to his underlying CKD progression with diabetes nephropathy vs AIN 2/2 NSAID use (take naproxen daily) Plan: Kidney functions remain poor, continue to require dialysis. Maintain MWF schedule. next sunday transition to prednisone 40 mg for 10 days empirical AIN. For bp continue amlodipine, bumex and start carvedilol consult IR fo tunnel dialysis catheter placement - Renal ultrasound right kidney 11.2 cm, left kidney same size no hydronephrosis normal cortical echogenicity Other protective measures for the kidney: Avoid nephrotoxic medications (NSAID's and iodinated IV contrast if possible, ..) Maintain MAP >65 at all times Transfuse for Hb < 7 Avoid hyperglycemia as able Thank you for allowing us to take care for Mr. Hahn. Please do not hesitate to reach out with any question or concern Digitally Signed by CORAL CARY MD on 02/13/2025 01:[address] [facility] [id number] Note Date of Service 02/13/2025 Chief Complaint Mr. Hahn is a 49-year-old gentleman with past medical history significant for chronic heart failure with reduced EF 40-45%, nonischemic cardiomyopathy, paroxysmal atrial fibrillation was not taking anticoagulation recently, CKD stage IIIb[baseline creatinine around 1.9 2], history of foreign years then being s/p debridement and antibiotics back in April 2024, stage IV gluteal wound, diabetes mellitus type 2, hypertension, blood loss and multifactorial anemia, dyslipidemia, recent UTI treated with Bactrim, who presented as a transfer from [facility] with lower extremity weakness and worsening swelling as well as shortness of breath with exertion. Patient was hypertensive but afebrile on pr esentation. Found to have significantly elevated creatinine at 6.19/BUN 57 with potassium elevated at 7.9. proBNP was 25,583. CBC did not show any evidence of leukocytosis. UA did show small leukocyte esterase, loaded WBCs and squamous epithelial cells. Chest x-ray was concerning for pulmonary vascular congestion versus infectious process. Patient was brought to [facility] admitted to MICU.Dialysis catheter was placed and patient underwent emergent dialysis with improvement in his potassium level. 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 Patient being transferred out with hospitalist taking over his care from yesterday. Plan for tunnel dialysis catheter placement with alignment of outpatient dialysis. Subjective Patient seen today at bedside. Lying on bed comfortably. Denies any worsening shortness of breath. Blood pressure relatively on higher side. Denies any chest pain, abdominal pain or nausea/vomiting. No acute events reported overnight. Objective Vitals and Measurements T: 36.1 C (Oral) TMIN: 36.1 C (Oral) TMAX: 37 C (Oral) HR: 70 RR: 16 BP: 149/77 SpO2: 94% Intake and Output 7AM Yesterday to 7AM Today Intake and Output (Last 24 hours) Intake Oral Intake 920.00 Output Urinary Catheter Output: 1300.00 Stool Count 0.00 Total Summary Total Intake 920.00 Total Output 1300.00 Fluid Balance -380.00 Physical Exam General: Patient is not in acute distress Neck: Supple, No JVD HEENT: Normocephalic, atraumatic, Cardiac: Regular rate and rhythm, S1 and S2 present, Lungs: Clear air entry bilaterally, no obvious wheezing or crackles Abdomen: Bowel sounds audible, abdomen is soft, nontender, non-distended, : Scrotal surgical scar, suprapubic opening with yellow urine, no significant tenderness or erythema Musculoskeletal: Able to move all 4 extremity spontaneously Extremities: Lower extremity edema present Skin: Warm, well perfused, no bruises Neurological: Alert and orientated x3, Weight Dosing Weight: 135.8 kg (02/11/25) Dosing Weight: 138.5 kg (02/11/25) Medications Medications (18) Active Scheduled: (13) amLODIPine 5 mg tablet 5 mg 1 tab(s), Oral, qDay apixaban 5 mg tablet 5 mg 1 tab(s), Oral, BID bumetanide 1 mg tablet 1 mg 1 tab(s), Oral, BID carvedilol 6.25 mg tablet 6.25 mg 1 tab(s), Oral, BIDM epoetin anastasiya epbx 10,000 units/mL (pf) vial - NEPH 10,000 unit(s) 1 mL, IV Push, prep pharm gabapentin 300 mg Capsule 300 mg 1 cap(s), Oral, qHS insulin glargine 20 unit(s) 0.2 mL, Subcutaneous (INT), qHS insulin lispro 100 units/mL Soln (3 mL) Give 0-10 units/dose, Subcutaneous, TIDAC methylPREDNISolone succ 40mg (40 mg/1mL) after dilution 40 mg 1 mL, IV Push, qDay Nicoderm patch REMOVAL 1 EA, Miscellaneous, q24h nicotine 21 mg/24 hr ER patch 21 mg 1 patch(es), Transdermal, q24h pantoprazole 40 mg EC tablet 40 mg 1 tab(s), Oral, qDayAC rosuvastatin 10 mg tablet 10 mg 1 tab(s), Oral, qHS Continuous: (0) PRN: (5) acetaminophen 325 mg Tablet 650 mg 2 tab(s), Oral, q4h dextrose 50% Solution Disp syringe 50 mL 25 gram(s) 50 mL, IV Push, AsDirected insulin regular human recombinant 100 units/ml (10 mL) Solution sliding scale insulin, Subcutaneous, q4h melatonin 3 mg tablet 3 mg 1 tab(s), Oral, qHS ondansetron 2 mg/ 1 mL 2 mL INJ 4 mg 2 mL, IV Push, q4h Lab Results 02/13 07:25 Glucose Level: 200 H Sodium Level: 137 Potassium Level: 4.5 BUN: 45.0 H Creatinine Lvl (s): 4.76 H 02/12 06:21 WBC: 7.5 Hgb: 8.5 L Hct: 27.5 L Platelet: 204 Glucose Level: 210 H Sodium Level: 139 Potassium Level: 4.7 BUN: 38.0 H Creatinine Lvl (s): 4.14 H Imaging Results and Diagnostics IR Temporary Dialysis Catheter Result Date: February 10, 2025 Verified By: CLINICAL STATEMENT: IMPRESSION: XR Chest 1 View Result Date: February 10, 2025 Verified By: LINA ARMANDO MD CLINICAL STATEMENT: IMPRESSION: No interval change. US Renal Result Date: February 10, 2025 Verified By: LINA ARMANDO MD CLINICAL STATEMENT: IMPRESSION: Unremarkable ultrasound of the kidneys. I have personally reviewed the images of this examination and agree with theresident's findings and interpretation. EKG No qualifying data available. 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 Patient presented with severe hyperkalemia and acute kidney injury. He was started on emergent dialysis and was admitted to MICU. Hyperkalemia has resolved. Plan for dialysis today. Nephrology following. Discussed with nephrology Dr. Cary, plan for tunneled dialysis catheter placement with outpatient dialysis arrangements to be made. IV Solu-Medrol due to concern for interstitial nephritis. Appreciate input from nephrology. 2. Regarding acute on chronic HFrEF Echocardiogram showed EF 40-45% unchanged. Patient has not been following with cardiology outpatient. Currently on beta-huyen, Coreg. Home Bumex 1 mg twice daily has been resumed per nephrology. Volume status improving. Further optimization with dialysis. Outpatient follow-up with cardiology for further GDMT optimization. Of note, SGLT2 inhibitor was not considered in the past because of his Claire's gangrene and Entresto was also discontinued because of GENE in the past per documentation. 3. Urology following due to concern for vesicocutaneous fistula. Patient prefers to follow-up with his urologist and is scheduled for outpatient CT and required cystoscopy. Recommendations from urology reviewed. Appreciate input. Initial UA did show pyuria however patient does not have symptoms related to UTI. Was recently treated with Bactrim. 4. Continue amlodipine and metoprolol transition to Coreg for elevated blood pressure. Monitor and uptitrate accordingly. Expect improvement with dialysis. 5. Glycemic control. ADA diet plus sliding scale insulin and insulin Lantus increased to 20 units nightly. 7. Continue home gabapentin. Discussed plan of care with patient at bedside. Offered to call family however politely declined. Note was dictated using voice recognition software so, please excuse for any typographical errors. Level of Care Indication Regular Floor DVT Prophylaxis Full anticoagulation Maintenance IVF Indication NA / No maintenance IVF Indwelling Urinary Catheter Indication NA No indwelling catheter Anticipated Timeline of Discharge 48 hours -- Likely Sunday with outpatient Dialysis Anticipated DC Disposition Home without services Digitally Signed by ESTER PARNELL MD on 02/13/2025 09:[address] [facility] [id number] NoteORIGINAL PROCEDURE: Temporary hemodialysis catheter placement with fluoroscopy and ultrasound WINDROWER OPERATOR: Ritika Curtis PA-C CLINICAL STATEMENT: GENE, Hyperkalemia MATERIALS UTILIZED: 14 Fr 15 cm SLX Hemo-Cath double lumen catheter Probe cover Micropuncture set 2-0 Ethilon suture ANESTHESIA: Local FLUOROSCOPY: 0.7 minutes AIR KERMA DOSE: 22.41 mGy SITE OF PUNCTURE: Right internal jugular vein The procedure, risks, and alternatives, were discussed with the patient and all questions were answered. Written informed consent obtained. Accompanying paperwork was verified for accuracy. Directed history and physical exam performed prior to the procedure. Medication reconciliation performed by nursing personnel. Procedure was performed using a cap, sterile gown, sterile gloves, a large sterile sheet, hand hygiene and 2% chlorhexidine for cutaneous antisepsis. The patient was positioned supine on the table and prepped and draped in usual sterile fashion. A critical pause was performed with assisting personnel just prior to the procedure with the patient's identity confirmed using 2 identifiers, confirming site and side. Preliminary ultrasound of the target vessel demonstrated a widely patent vein and an image was obtained. 2% lidocaine was administered at the puncture site for local anesthesia. A tiny skin incision was made. The vein was cannulated under direct sonographic guidance with a micropuncture set. A wire was advanced into the IVC. After serial dilatation, the catheter was advanced over the wire under fluoroscopy. The wire was removed. Fluoroscopy demonstrated the catheter tip to be near the cavoatrial junction. A final fluoroscopic image was obtained. All lumens were aspirated and flushed with saline. Sterile caps were attached to each lumen. The catheter was fixed to the skin with suture. A sterile dressing was placed. IMPRESSION: Successful placement of a temporary hemodialysis catheter NOTE: Temporary hemodialysis catheter intended for inpatient use only. Removal or conversion to a permanent tunneled catheter required prior to hospital discharge. Procedure performed by Ritika Curtis PA-C Interpreted by: Damari Gastelum MD Preliminary Report By: Ritika Curtis PA-C Electronically signed By Damari Gastelum MD Dictated Date: 02/10/2025 3:07:43 PM Prelim Date: 02/10/2025 3:08:34 PM Sign Date: 02/13/2025 8:57:30 AM Ordering Provider: [facility] [id number] Evaluation + Plan noteExtracted from: Title:Consult Note Author:ESTER PARNELL MD Date:01/18 06/12 Acute renal failure on under lying CKD stage IIIb Severe hyperkalemia, improved Volume overload Acute on chronic heart failure reduced EF 40-45% 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 Nephrology following for underlying GENE on CKD. Patient underwent emergent dialysis on presentation. Hyperkalemia has resolved. Also receiving IV Solu- Medrol due to concern for acute interstitial nephritis. Monitor I's and O's and renal function closely. Dialysis per nephrology. 2. Repeat echocardiogram showed EF 40-45% unchanged. Patient has not been following with cardiology outpatient. Currently on beta-huyen. Home Bumex 1 mg twice daily has been resumed per nephrology. Volume status improving. Further optimization with dialysis. Appreciate input from nephrology. Outpatient follow-up with cardiology for further GDMT optimization. Of note, SGLT2 inhibitor was not considered in the past because of his Claire's gangrene and Entresto was also discontinued because of GENE. 3. Urology following due to concern for vesicocutaneous fistula. Appreciate further input. X-ray 4. Continue metoprolol and apixaban for underlying A-fib. 5. Monitor hemoglobin. 7. Glycemic control. ADA diet plus sliding scale insulin and insulin Lantus 15 units. 8. Continue home gabapentin. Discussed plan of care with patient at bedside. Questions answered. Note was dictated using voice recognition software so, please excuse for any typographical errors. Level of Care Indication SD monitor (CHF exacerbation) DVT Prophylaxis Full anticoagulation Maintenance IVF Indication NA / No maintenance IVF Indwelling Urinary Catheter Indication NA No indwelling catheter Anticipated Timeline of Discharge 48 hours Anticipated DC Disposition Home without services Future Scheduled Tests Radiology* CT Pelvis w/ IV Contrast Only 06/27/[address] [facility] 03-27-2025 Urology Progress note Date of Service 02/12/2025 History of Present Illness Patient left lethargic and more alert today. Voiding without difficulty and states only a small amount of urine/discharge exiting from the suprapubic fistula. Physical Exam Vitals and Measurements T: 36.6 C (Oral) TMIN: 35.9 C (Skin) TMAX: 37.2 C (Oral) HR: 77 (Monitored) RR: 18 BP: 177/91 SpO2:94% WT: 135.8 kg Weight Dosing Weight: 135.8 kg (02/11/25) Dosing Weight: 138.5 kg (02/11/25) Abdomen is soft. Suprapubic fistula site with some clearish yellowish drainage but not soaking the pad. Left testicle not well palpable. Healed scrotal and penile wounds from prior debridement for necrotizing fasciitis. Lab Results 02/12 06:21 WBC: 7.5 Hgb: 8.5 L Hct: 27.5 L Platelet: 204 Glucose Level: 210 H Sodium Level: 139 Potassium Level: 4.7 BUN: 38.0 H Creatinine Lvl (s): 4.14 H 02/11 03:00 WBC: 7.9 Hgb: 7.6 L Hct: 23.9 L Platelet: 200 Neutrophil %: 73.3 Glucose Level: 129 H Sodium Level: 141 Potassium Level: 5.0 BUN: 42.0 H Creatinine Lvl (s): 5.13 H Assessment/Plan 1. Status post debridement x 3 for necrotizing fasciitis on 04/11, presenting with scrotal infectionfollowing shaving 2. 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 Acute kidney injury/chronic kidney disease with no hydronephrosis on imaging. Urology note reviewed. IR to see to place temporary dialysis catheter. 4. 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 We can investigate with CT scan before discharge but the patient already scheduled for outpatient CT by urologist and possible repair although given acute kidney injury and renalfailure would likely hold on surgical intervention in the near future. Would recommend cystoscopy be fore considering surgical intervention. Discussed with family. Will check periodically during this admission and CT scan will be ordered in the near future Discussed case with nephrology. Creatinine level trending downwards. I discussed also with patient ordering CT scan during hospitalization but he prefers to wait and follow-up with his outpatient urologist to knows his case well and he already has a CT scan scheduled over the next few weeks. Currently does not appear to be any acute urological issues requiring intervention. Will follow renal function. Will be available to check as needed during this hospitalization. Problem List/Past Medical History Ongoing Diabetes GERD (gastroesophageal reflux disease) High cholesterol Procedure/Surgical History Testicle: 1993 Amputation Medications Inpatient Bumex, 1 mg= 1 tab(s), Oral, BID Dextrose 50% IV Push, 25 gram(s)= 50 mL, IV Push, AsDirected, PRN Eliquis, 5 mg= 1 tab(s), Oral, BID gabapentin, 300 mg= 1 cap(s), Oral, qHS HumaLOG 100 units/mL subcutaneous solution, Give 0-10 units/dose, Subcutaneous, TIDAC HumuLIN R, sliding scale insulin, Subcutaneous, q4h, PRN Lantus, 15 unit(s)= 0.15 mL, Subcutaneous (INT), qHS melatonin, 3 mg= 1 tab(s), Oral, qHS, PRN Nicoderm C-Q 21 mg/24 hr transdermal film, extended release, 21 mg= 1 patch(es), Transdermal, q24h nicotine (Nicoderm Patch REMOVAL), 1 EA, Miscellaneous, q24h Protonix, 40 mg= 1 tab(s), Oral, qDayAC rosuvastatin, 10 mg= 1 tab(s), Oral, qHS SOLU-Medrol 40 mg pf injection, 40 mg= 1 mL, IV Push, qDay Toprol-XL, 50 mg= 1 tab(s), Oral, qDay Tylenol, 650 mg= 2 tab(s), Oral, q4h, PRN Zofran, 4 mg= 2 mL, IV Push, q4h, PRN Home bacitracin topical ointment, 1 artemio, Topical, BID bumetanide 1 mg oral tablet, 1 mg= 1 tab(s), Oral, BID, 2 refills Dakins Half Strength 0.25% topical solution, 1 artemio, Topical, BID Eliquis 5 mg oral tablet, 5 mg= 1 tab(s), Oral, BID, 4 refills emollients, topical, 1 artemio, Topical, BID gabapentin 100 mg oral capsule, 300 mg= 3 cap(s), Oral, qDay glimepiride 4 mg oral tablet, 8 mg= 2 tab(s), Oral, with breakfast HumaLOG 100 units/mL subcutaneous solution, Give 0-10 units/dose, Subcutaneous, TIDAC Lantus 100 units/mL10 ml vial solution, 15 unit(s), Subcutaneous (INT), qHS lidocaine 4% patch, Transdermal, q24h omeprazole 40 mg oral delayed release capsule, 40 mg= 1 cap(s), Oral, BID rosuvastatin 10 mg oral tablet, 10 mg= 1 tab(s), qDay Toprol-XL 100 mg oral tablet, extended release, 100 mg= 1 tab(s), Oral, BID, 3 refills Allergies ampicillin Unknown penicillin Unknown Social History Smoking Status - 08/17/2018 Current every day smoker Alcohol - No Risk, 09/19/2020 Use: Current. Frequency: 1-2 times per year., 07/07/2023 Home/Environment Living situation: Home/Independent. Safe place to go: Yes. Financial concerns: No. Domestic Concerns: None., 03/08/2024 Nutrition/Health Type of diet: Regular. Appetite Good. Eating Difficulties None., 03/08/2024 Substance Abuse - Denies Substance Abuse, 08/17/2018 Use: Never., 04/30/2019 Tobacco - No Risk, 09/19/2020 Tobacco Use: 10 or more cigarettes (1/2 pack or more)/day in last 30 days. Type: Cigarettes., 04/30/2019 Family History Patient was adopted Alcohol abuse: Father. Diabetes: Father. Health Status Family Member(s) Immunizations tetanus/diphth/pertuss (Tdap) adult/adol: 0.5 mL (08/17/18) Digitally Signed by TU DUTTON MD on 02/12/2025 01:[address] [facility] [id number] History and physical note Date of Service 02/12/2025 Reason for Consultation MICU transfer out Referring Physician MICU team History of Present Illness Mr. Hahn is a 49-year-old gentleman with past medical history significant for chronic heart failure with reduced EF 40-45%, nonischemic cardiomyopathy, paroxysmal atrial fibrillation was not taking anticoagulation recently, CKD stage IIIb[baseline creatinine around 1.9 2], history of foreign years then being s/p debridement and antibiotics back in April 2024, stage IV gluteal wound, diabetes mellitus type 2, hypertension, blood loss and multifactorial anemia, dyslipidemia, recent UTI treated with Bactrim, who presented as a transfer from [place] [facility] with lower extremity weakness and worsening swelling as well as shortness of breath with exertion. Patient was hypertensive but afebrile on pr esentation. Found to have significantly elevated creatinine at 6.19/BUN 57 with potassium elevated at 7.9. proBNP was 25,583. CBC did not show any evidence of leukocytosis. UA did show small leukocyte esterase, loaded WBCs and squamous epithelial cells. Chest x-ray was concerning for pulmonary vascular congestion versus infectious process. Patient was brought to [facility] admitted to MICU. Dialysis catheter was placed and patient underwent emergent dialysis with improvement in his potassium level. Patient is being seen by nephrology and urology. Patient being transferred out with hospitalist taking over his care from today. Patient seen and examined today at bedside. States he is feeling better overall with his improving lower extremity swelling and shortness of breath. Denies any chest pain, abdominal pain or nausea/vomiting. Denies any dysuria, urinary frequency. Blood pressure relatively higher. Denies any cough orsputum production. Review of Systems 12 point review of systems obtained and unremarkable except mentioned in HPI. Physical Exam Vitals and Measurements T: 36.8 C (Oral) TMIN: 35.9 C (Skin) TMAX: 37.2 C (Oral) HR: 74 (Apical) RR: 20 RR: 20 BP: 144/74 SpO2: 96% WT: 135.8 kg Weight Dosing Weight: 135.8 kg (02/11/25) Dosing Weight: 138.5 kg (02/11/25) General: Patient is not in acute distress Neck: Supple, No JVD HEENT: Normocephalic, atraumatic, Cardiac: Regular rate and rhythm, S1 and S2 present, Lungs: Bilateral air entry present, no wheezing or crackles Abdomen: Bowel sounds audible, abdomen is soft, nontender, non-distended, : Scrotal surgical scar, suprapubic opening with urine coming, no significant tenderness or erythema Musculoskeletal: Able to move all 4 extremity spontaneously Extremities: Lower extremity edema present Skin: Warm, well perfused, no bruises Neurological: Alert and orientated x3, grossly nonfocal Lab Results 02/12 06:21 WBC: 7.5 Hgb: 8.5 L Hct: 27.5 L Platelet: 204 Glucose Level: 210 H Sodium Level: 139 Potassium Level: 4.7 BUN: 38.0 H Creatinine Lvl (s): 4.14 H 02/11 03:00 WBC: 7.9 Hgb: 7.6 L Hct: 23.9 L Platelet: 200 Neutrophil %: 73.3 Glucose Level: 129 H Sodium Level: 141 Potassium Level: 5.0 BUN: 42.0 H Creatinine Lvl (s): 5.13 H Assessment/Plan Acute renal failure on underlying CKD stage IIIb Severe hyperkalemia, improved Volume overload Acute on chronic heart failure reduced EF 40-45% 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 Nephrology following for underlying GENE on CKD. Patient underwent emergent dialysis on presentation. Hyperkalemia has resolved. Also receiving IV Solu- Medrol due to concern for acute interstitial nephritis. Monitor I's and O's and renal function closely. Dialysis per nephrology. 2. Repeat echocardiogram showed EF 40-45% unchanged. Patient has not been following with cardiologyoutpatient. Currently on beta-huyen. Home Bumex 1 mg twice daily has been resumed per nephrology.Volume status improving. Further optimization with dialysis. Appreciate input from nephrology. Outpatient follow- up with cardiology for further GDMT optimization. Of note, SGLT2 inhibitor was not considered in the past because of his Claire's gangrene and Entresto was also discontinued because ofAKI. 3. Urology following due to concern for vesicocutaneous fistula. Appreciate further input. X-ray 4. Continue metoprolol and apixaban for underlying A-fib. 5. Monitor hemoglobin. 7. Glycemic control. ADA diet plus sliding scale insulin and insulin Lantus 15 units. 8. Continue home gabapentin. Discussed plan of care with patient at bedside. Questions answered. Note was dictated using voice recognition software so, please excuse for any typographical errors. Level of Care Indication SD monitor (CHF exacerbation) DVT Prophylaxis Full anticoagulation Maintenance IVF Indication NA / No maintenance IVF Indwelling Urinary Catheter Indication NA No indwelling catheter Anticipated Timeline of Discharge 48 hours Anticipated DC Disposition Home without services 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 Medications Inpatient Bumex, 1 mg= 1 tab(s), Oral, BID Dextrose 50% IV Push, 25 gram(s)= 50 mL, IV Push, AsDirected, PRN Eliquis, 5 mg= 1 tab(s), Oral, BID gabapentin, 300 mg= 1 cap(s), Oral, qHS HumaLOG 100 units/mL subcutaneous solution, Give 0-10 units/dose, Subcutaneous, achs HumuLIN R, sliding scale insulin, Subcutaneous, q4h, PRN Insulin Regular for IV 100 unit(s) + NS Premix Diluent 100 mL Lantus, 15 unit(s)= 0.15 mL, Subcutaneous (INT), qHS melatonin, 3 mg= 1 tab(s), Oral, qHS, PRN Nicoderm C-Q 21 mg/24 hr transdermal film, extended release, 21 mg= 1 patch(es), Transdermal, q24h nicotine (Nicoderm Patch REMOVAL), 1 EA, Miscellaneous, q24h Protonix, 40 mg= 1 tab(s), Oral, qDayAC rosuvastatin, 10 mg= 1 tab(s), Oral, qHS SOLU-Medrol 40 mg pf injection, 40 mg= 1 mL, IV Push, qDay Toprol-XL, 50 mg= 1 tab(s), Oral, qDay Tylenol, 650 mg= 2 tab(s), Oral, q4h, PRN Zofran, 4 mg= 2 mL, IV Push, q4h, PRN Home bacitracin topical ointment, 1 artemio, Topical, BID bumetanide 1 mg oral tablet, 1 mg= 1 tab(s), Oral, BID, 2 refills Dakins Half Strength 0.25% topical solution, 1 artemio, Topical, BID Eliquis 5 mg oral tablet, 5 mg= 1 tab(s), Oral, BID, 4 refills emollients, topical, 1 artemio, Topical, BID gabapentin 100 mg oral capsule, 300 mg= 3 cap(s), Oral, qDay glimepiride 4 mg oral tablet, 8 mg= 2 tab(s), Oral, with breakfast HumaLOG 100 units/mL subcutaneous solution, Give 0-10 units/dose, Subcutaneous, TIDAC Lantus 100 units/mL10 ml vial solution, 15 unit(s), Subcutaneous (INT), qHS lidocaine 4% patch, Transdermal, q24h omeprazole 40 mg oral delayed release capsule, 40 mg= 1 cap(s), Oral, BID rosuvastatin 10 mg oral tablet, 10 mg= 1 tab(s), qDay Toprol-XL 100 mg oral tablet, extended release, 100 mg= 1 tab(s), Oral, BID, 3 refills Allergies ampicillin Unknown penicillin Unknown Social History Smoking Status - 08/17/2018 Current every day smoker Alcohol - No Risk, 09/19/2020 Use: Current. Frequency: 1-2 times per year., 07/07/2023 Home/Environment Living situation: Home/Independent. Safe place to go: Yes. Financial concerns: No. Domestic Concerns: None., 03/08/2024 Nutrition/Health Type of diet: Regular. Appetite Good. Eating Difficulties None., 03/08/2024 Substance Abuse - Denies Substance Abuse, 08/17/2018 Use: Never., 04/30/2019 Tobacco - No Risk, 09/19/2020 Tobacco Use: 10 or more cigarettes (1/2 pack or more)/day in last 30 days. Type: Cigarettes., 04/30/2019 Family History Patient was adopted Alcohol abuse: Father. Diabetes: Father. Health Status Family Member(s) Immunizations tetanus/diphth/pertuss (Tdap) adult/adol: 0.5 mL (08/17/18) Digitally Signed by ESTER PARNELL MD on 02/12/2025 09:[address] [facility] [address] [id number] Note Date of Service 02/11/2025 Chief Complaint This is a 49-year-old male who is currently admitted to the medical ICU for severe hyperkalemia. The patient has a history of obesity and CKD. He appears to be volume overloaded with signs of vascular congestion and severe electrolyte derangements. Temporary dialysis catheter was placed and the patient underwent emergent dialysis. The patient had normalization of electrolytes. He was evaluated byurology with tentative plans for repeat CT scan to evaluate a urethrocutaneous fistula. Objective Vitals and Measurements T: 35.9 C (Skin) TMIN: 35.9 C (Skin) TMAX: 36.9 C (Oral) HR: 84 RR: 16 BP: 182/108 SpO2: 95% WT: 138.5 kg Intake and Output 7AM Yesterday to 7AM Today Intake and Output (Last 24 hours) Intake Oral Intake 858.00 Output Urinary Catheter Output: 750.00 Stool Count 2.00 Total Summary Total Intake 858.00 Total Output 750.00 Fluid Balance 108.00 Physical Exam Patient is alert, interactive, following commands. He has obesity with a soft abdomen. Dialysis catheter is in place. There is bilateral pitting edema Weight Dosing Weight: 138.5 kg (02/11/25) Dosing Weight: 138.9 kg (02/10/25) Medications Medications (16) Active Scheduled: (9) apixaban 5 mg tablet 5 mg 1 tab(s), Oral, BID gabapentin 300 mg Capsule 300 mg 1 cap(s), Oral, qHS methylPREDNISolone succ 40mg (40 mg/1mL) after dilution 40 mg 1 mL, IV Push, qDay metoprolol succinate 50 mg ER tablet 50 mg 1 tab(s), Oral, qDay Nicoderm patch REMOVAL 1 EA, Miscellaneous, q24h nicotine 21 mg/24 hr ER patch 21 mg 1 patch(es), Transdermal, q24h pantoprazole 40 mg EC tablet 40 mg 1 tab(s), Oral, qDayAC Pharmacy To Dose 1 EA, Miscellaneous, Daily rosuvastatin 10 mg tablet 10 mg 1 tab(s), Oral, qHS Continuous: (1) insulin regular 100 unit(s) + NS Premix Diluent 100 mL 100 mL, Intravenous PRN: (6) acetaminophen 325 mg Tablet 650 mg 2 tab(s), Oral, q4h dextrose 50% Solution Disp syringe 50 mL 25 gram(s) 50 mL, IV Push, AsDirected insulin regular human recombinant 100 units/ml (10 mL) Solution sliding scale insulin, Subcutaneous, q4h melatonin 3 mg tablet 3 mg 1 tab(s), Oral, qHS ondansetron 2 mg/ 1 mL 2 mL INJ 4 mg 2 mL, IV Push, q4h sodium zirconium cyclosilicate 10 g REC packet 10 gram(s) 1 packet(s), Oral, q8hr Lab Results 02/11 03:00 WBC: 7.9 Hgb: 7.6 L Hct: 23.9 L Platelet: 200 Neutrophil %: 73.3 Glucose Level: 129 H Sodium Level: 141 Potassium Level: 5.0 BUN: 42.0 H Creatinine Lvl (s): 5.13 H 02/10 17:54 Glucose Level: 164 H Sodium Level: 140 Potassium Level: 5.6 H BUN: 42.0 H Creatinine Lvl (s): 4.86 H 02/10 10:34 Potassium Level: 7.1 C 02/10 07:51 Glucose Level: 270 H Sodium Level: 137 Potassium Level: 7.1 C Potassium Level: 7.2 C BUN: 54.0 H Creatinine Lvl (s): 5.86 H EKG No qualifying data available. Assessment/Plan Acute renal failure on chronic kidney disease with hyperkalemia. 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 He will be monitored for ongoing dialysis needs. Patient is stable for transfer out of the medical ICU. Upon transfer, pulmonary critical care services will sign off Digitally Signed by BOB JONES MD on 02/11/2025 05:[address] [facility] [id number] Note. MICRO - Microbiology PROCEDURE: Urine Culture [O1 *1] SOURCE: Urine BODY SITE: COLLECTED DATE/TIME: 02/09/2025 20:33 EDT RECEIVED DATE/TIME: 02/10/2025 13:56 EDT START DATE/TIME: 02/10/2025 13:56 EDT FREE TEXT SOURCE: FINAL REPORTS Final Report [] Verified Date/Time/Personnel: 02/11/2025 14:24 EDT <10,000 cfu/ml. No Significant growth. Sensitivity not indicated. PRELIMINARY REPORTS Preliminary Report [] Verified Date/Time/Personnel: 02/10/2025 14:59 EDT Specimen received in lab. Order Comments O1: Urine Culture Added by Discern Performing Locations *1: This test was performed at: [facility], [address] [place] [address], [id number] , [facility]03-26-2025 Note* Exam Date Time Procedure Performing Provider Status 02/11/25 11:56 AM Echocardiogram, Adult - CV FRANKI DODGE AT MD; Auth (Verified) 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 This appeared to emanate from the scrotal skin infection and following shaving. Although I do not see any evidence of prior left orchiectomy patient states his left testicle was involved and may have atrophied. He voids without difficulty but since admission he has noted increased urine output via a small dimple just above the penoscrotal junction in the midline anteriorly. He states he was told he had a fistula and there was communication with the bladder. No hematuria. No fevers or chills no clinical evidence of infection the patient is admitted with acute renal failure supe rimposed on chronic kidney disease. There was no hydronephrosis on ultrasound. He was found to havevolume overload. History of left gluteal abscess also at time of Claire's which has resolved withdebridement and local care. IR has been consulted for temporary dialysis catheter. Patient states he has seen urologist locally and at some point a CAT scan is being planned and repair of the fistulahas been discussed. Does not recall having had a cystoscopy. Voids with a good flow. Pyuria on urinalysis as expected. Kidneys were normal on CT scan from 05/13 Physical Exam Vitals and Measurements T: 36.7 C (Skin) TMIN: 36.6 C (Oral) TMAX: 37.1 C (Oral) HR: 107 (Monitored) RR: 14 BP: 151/87 SpO2: 93% HT: 188 cm WT: 138.9 kg BMI: 40.69 Weight Dosing Weight: 138.9 kg (02/10/25) Dosing Weight: 140.8 kg (02/10/25) On examination no evidence of any acute recurrent genital infection. Penis is retracted with evidence of secondary healing. Left testicle not palpable. Right testicle palpable. There is no scrotal erythema. In the midline above the penoscrotal junction is a small dimple and there appears to be urine or urine like fluid exiting this onto a pad. Lab Results 02/10 10:34 Potassium Level: 7.1 C 02/10 07:51 Glucose Level: 270 H Sodium Level: 137 Potassium Level: 7.1 C Potassium Level: 7.2 C BUN: 54.0 H Creatinine Lvl (s): 5.86 H 02/10 04:55 WBC: 7.5 Hgb: 8.8 L Hct: 27.2 L Platelet: 211 Neutrophil %: 94.1 H Glucose Level: 235 H Sodium Level: 138 Potassium Level: 7.1 C BUN: 55.0 H Creatinine Lvl (s): 5.86 H 02/10 01:55 Glucose Level: 225 H Sodium Level: 139 Potassium Level: 6.6 C BUN: 55.0 H Creatinine Lvl (s): 5.85 H EKG EC02/10/25: Sinus tachycardia Right bundle branch block Electronic Signature: NGOC MIN MD 02/10/2025 15:49:39 Assessment/Plan 1. Status post debridement x 3 for necrotizing fasciitis on 04/11, presenting with scrotal infectionfollowing shaving 2. 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 Acute kidney injury/chronic kidney disease with no hydronephrosis on imaging. Urology note reviewed. IR to see to place temporary dialysis catheter. 4. 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 We can investigate with CT scan before discharge the patient already scheduledfor outpatient CT by urologist and possible repair although given acute kidney injury and renal failure would likely hold on surgical intervention in the near future. Would recommend cystoscopy before considering surgical intervention. Discussed with family. Will check periodically during this admission and CT scan will be ordered in the near future Problem List/Past Medical History Ongoing Diabetes GERD (gastroesophageal reflux disease) High cholesterol Procedure/Surgical History Testicle: 1993 Amputation Medications Inpatient Dextrose, 25 gram(s)= 50 mL, IV Push, AsDirected, PRN Dextrose 50% IV Push, 25 gram(s)= 50 mL, IV Push, AsDirected, PRN heparin 5000 units/mL injection, 5000 unit(s)= 1 mL, Subcutaneous, q8h HumuLIN R, sliding scale insulin, Subcutaneous, q4h, PRN Insulin Regular for IV 100 unit(s) + NS Premix Diluent 100 mL Lokelma, 10 gram(s)= 1 packet(s), Oral, q8hr, PRN Nicoderm C-Q 21 mg/24 hr transdermal film, extended release, 21 mg= 1 patch(es), Transdermal, q24h nicotine (Nicoderm Patch REMOVAL), 1 EA, Miscellaneous, q24h Protonix, 40 mg= 1 tab(s), Oral, qDayAC Toprol-XL, 50 mg= 1 tab(s), Oral, qDay Tylenol, 650 mg= 2 tab(s), Oral, q4h, PRN Zofran, 4 mg= 2 mL, IV Push, q4h, PRN Home bacitracin topical ointment, 1 artemio, Topical, BID bumetanide 1 mg oral tablet, 1 mg= 1 tab(s), Oral, BID, 2 refills Dakins Half Strength 0.25% topical solution, 1 artemio, Topical, BID Eliquis 5 mg oral tablet, 5 mg= 1 tab(s), Oral, BID, 4 refills emollients, topical, 1 artemio, Topical, BID gabapentin 100 mg oral capsule, 300 mg= 3 cap(s), Oral, qDay glimepiride 4 mg oral tablet, 8 mg= 2 tab(s), Oral, with breakfast HumaLOG 100 units/mL subcutaneous solution, Give 0-10 units/dose, Subcutaneous, TIDAC Lantus 100 units/mL10 ml vial solution, 15 unit(s), Subcutaneous (INT), qHS lidocaine 4% patch, Transdermal, q24h omeprazole 40 mg oral delayed release capsule, 40 mg= 1 cap(s), Oral, BID rosuvastatin 10 mg oral tablet, 10 mg= 1 tab(s), qDay Toprol-XL 100 mg oral tablet, extended release, 100 mg= 1 tab(s), Oral, BID, 3 refills Allergies ampicillin Unknown penicillin Unknown Social History Smoking Status - 08/17/2018 Current every day smoker Alcohol - No Risk, 09/19/2020 Use: Current. Frequency: 1-2 times per year., 07/07/2023 Home/Environment Living situation: Home/Independent. Safe place to go: Yes. Financial concerns: No. Domestic Concerns: None., 03/08/2024 Nutrition/Health Type of diet: Regular. Appetite Good. Eating Difficulties None., 03/08/2024 Substance Abuse - Denies Substance Abuse, 08/17/2018 Use: Never., 04/30/2019 Tobacco - No Risk, 09/19/2020 Tobacco Use: 10 or more cigarettes (1/2 pack or more)/day in last 30 days. Type: Cigarettes., 04/30/2019 Family History Patient was adopted Alcohol abuse: Father. Diabetes: Father. Health Status Family Member(s) Immunizations tetanus/diphth/pertuss (Tdap) adult/adol: 0.5 mL (08/17/18) Digitally Signed by TU DUTTON MD on 02/10/2025 06:[address] [facility] [id number] Note IR Procedure Record Summary Primary Physician: RITIKA CURTIS PA-C Finalized Date/Time: 02/10/25 12:15:26 Pt. Name: GURINDER HAHN/Sex: 1975 Male Med Rec #: [id number] Physician: VIRIDIANA WILLIAM MD Financial #: [id number] Pt. Type: I Room/Bed: [facility]/A Admit/Disch: 02/10/25 01:15:00 - Institution: Allergies identified in patient's electronic medical record at time of printing on 02/10/25 Entry 1 Entry 2 Substance ampicillin penicillin Reaction Type Allergy Allergy Last Modified By: CELSO Hughes RN Yvonne M 04/26/24 11:25:34 04/26/24 11:24:22 Case Attendance- IR Entry 1 Entry 2 Entry 3 Case Attendee RITIKA CURTIS Hannah RN Fierstos, Megan R Rad PA-C Tech Role Performed Primary Surgeon Procedure Nurse Web Editor Details Time In 02/10/25 12:05:00 02/10/25 11:52:00 02/10/25 11:52:00 Time Out 02/10/25 12:12:00 02/10/25 12:21:00 02/10/25 12:21:00 Procedure/Preference IR Temporary Dialysis IR Temporary Dialysis IR Temporary Dialysis Card Catheter SN Catheter SN Catheter SN Last Modified By: Virginia Valadez RN, Hannah RN Hill, Hannah RN 02/10/25 12:15:23 02/10/25 12:15:23 02/10/25 12:15:23 Entry 4 Entry 5 Case Attendee Veronica Stratton Chandra A RN Role Performed Scrub Technologist Primary Care Nurse Details Time In 02/10/25 11:52:00 02/10/25 11:52:00 Time Out 02/10/25 12:21:00 02/10/25 12:21:00 Procedure/Preference IR Temporary Dialysis IR Temporary Dialysis Card Catheter SN Catheter SN Last Modified By: Virginia Valadez RN, Hannah RN 02/10/25 12:15:23 02/10/25 12:15:23 Radiology Procedures- IR Entry 1 Procedure/Preference IR Temporary Dialysis Actual Procedure Temp cath Card Catheter SN Primary Procedure Yes Primary Surgeon RITIKA CURTIS PA-C Anesthesia/Sedation Local Type Additional Procedure Times Start 02/10/25 12:05:00 Stop 02/10/25 12:12:00 Specialty Service SN Radiology Procedure EBL 2 mL Last Modified By: Virginia Valadez RN 02/10/25 12:12:53 Radiology Procedure Details - IR Entry 1 Radiology Sedation Case Times Sedation Total Time 0 Radiology - Fluid/Drainage Radiology Contrast Contrast Used? No Radiology Flouroscopy Fluoroscopy Used? Yes Fluoro Dose (mGy) 22.41 Fluoro Time 0.7min Radiology Local Local Used? Yes Local Type: lido 2% Local Dose 7mL Radiology Procedure Site Site/Location RIJ Site Condition No complications Suture 2.0 Ethilon Suture Dressing Type Tagaderm Last Modified By: Virginia Valadez RN 02/10/25 12:15:18 General Case Data - IR Entry 1 Case Information Room AH IR 16 Case Level IR Level 2 Wound Class None Specialty SN Radiology Procedure ASA Class None Diagnosis Preop Diagnosis hyperkalemia Postop Same As Preop Yes Postop Diagnosis hyperkalemia Last Modified By: Virginia Valadez RN 02/10/25 12:10:54 Procedure Case Times- IR Entry 1 Patient In Procedure Patient In OR 02/10/25 11:52:00 Patient Out of OR 02/10/25 12:21:00 Procedure Start/Stop Procedure Start Time 02/10/25 12:05:00 Procedure Stop Time 02/10/25 12:12:00 Last Modified By: Virginia Valadez RN 02/10/25 12:15:22 Immediate Post OP Note - IR Entry 1 Immediate Post Yes Findings 15cm temp cath Right IJ Procedure Note displayed for Physician to review Closure Technique Closure Technique Other than Primary Last Modified By: Virginia Valadez RN 02/10/25 12:15:01 Immediate Post OP Note - IR Signed By: RITIKA CURTIS PA-C 02/10/25 12:13 Allergy Information- IR Entry 1 Allergies Reviewed? Yes Allergies Reviewed Medical Record With Last Modified By: Virginia Valadez RN 02/10/25 12:06:21 Radiology Protocols/Time Out- IR Entry 1 Preprocedure Clinician Verifies Correct patient ID When Clinically Confirmation of correct using name & date Indicated side(s) and site(s), or MRN, Accurate Correct diagnostic and procedure, complete radiology tests Informed Consent, H & P available update immediately prior to procedure, if applicable OR/Procedure Room/Bedside Time 02/10/25 12:05:00 Clinician Verifies Correct patient identity including EMR & records using name and date or medical record number, Accurate procedure consent form, Correct patient position, Necessary equipment is available, Anticipated non-routine events with surgical team (case duration, estimated blood loss, patient specific concerns)., Meyer patient factors for recovery and management identified with surgical team. When Applicable Confirmation correct Team Members RITIKA CURTIS side and site marked, Present for Time Out Rory BERG Hannah RN, Relevant images and Veronica Stratton, results are properly Anny Gracia Rad labeled and Mame Nova Chandra appropriately A RN displayed, Alcohol based prep dry, Double verification of sterility indicators complete Instrument Sterility Team Members Veronica Stratton Verifying Sterility Procedure IR Temporary Dialysis Catheter SN Last Modified By: Virginia Valadez RN 02/10/25 12:09:38 Skin Prep- IR Entry 1 Procedure IR Temporary Dialysis Catheter SN Skin Prep Prep Area Neck Side Right By Veronica Stratton Prep Agents Chloraprep Hair Removal Method N/A Last Modified By: Virginia Valadez RN 02/10/25 12:10:06 Patient Positioning- IR Entry 1 Procedure IR Temporary Dialysis Body Position OP Supine Catheter SN Feet Uncrossed? Yes Pressure Points Yes Checked Last Modified By: Virginia Valadez RN 02/10/25 12:10:12 Radiology Procedure Plan - IR Entry 1 Radiology - Nursing Care Plan Outcome Statement The patient Outcome Statement The patient receives demonstrates knowledge Cont. appropriate of the expected medication(s), safely responses to the administered during the operative/invasive perioperative/invasive procedure., The period., The patient is patient's value system, free from signs and lifestyle, ethnicity, symptoms of injury and culture are caused by extraneous considered, respected, objects (equipment, and incorporated in the instrumentation, perioperative plan of sponges, or sharps). care., The patient is free from signs and symptoms of infection., The patient is free from signs and symptoms of injury related to positioning. Radiology - Action Plan Outcomes Met? Yes Internal Grinder Tender Virginia Valadez RN Completing Procedure Plan Last Modified By: Virginia Valadez RN 02/10/25 12:10:40 Case Comments Finalized By: Virginia Valadez RN Document Signatures Signed By: Virginia Valadez RN 02/10/25 12:[address] [facility] [id number] Note* Exam Date Time Procedure Performing Provider Status 02/10/25 12:14 PM IR Temporary Dialysis Catheter DAMARI CAO MD; Auth (Verified) [id number] ORIGINAL PROCEDURE: Temporary hemodialysis catheter placement with fluoroscopy and ultrasound WINDROWER OPERATOR: Ritika Curtis PA-C CLINICAL STATEMENT: GENE, Hyperkalemia MATERIALS UTILIZED: 14 Fr 15 cm SLX Hemo-Cath double lumen catheter Probe cover Micropuncture set 2-0 Ethilon suture ANESTHESIA: Local FLUOROSCOPY: 0.7 minutes AIR KERMA DOSE: 22.41 mGy SITE OF PUNCTURE: Right internal jugular vein The procedure, risks, and alternatives, were discussed with the patient and all questions were answered. Written informed consent obtained. Accompanying paperwork was verified for accuracy. Directed history and physical exam performed prior to the procedure. Medication reconciliation performed by nursing personnel. Procedure was performed using a cap, sterile gown, sterile gloves, a large sterile sheet, hand hygiene and 2% chlorhexidine for cutaneous antisepsis. The patient was positioned supine on the table and prepped and draped in usual sterile fashion. A critical pause was performed with assisting personnel just prior to the procedure with the patient's identity confirmed using 2 identifiers, confirming site and side. Preliminary ultrasound of the target vessel demonstrated a widely patent vein and an image was obtained. 2% lidocaine was administered at the puncture site for local anesthesia. A tiny skin incision was made. The vein was cannulated under direct sonographic guidance with a micropuncture set. A wire was advanced into the IVC. After serial dilatation, the catheter was advanced over the wire under fluoroscopy. The wire was removed. Fluoroscopy demonstrated the catheter tip to be near the cavoatrial junction. A final fluoroscopic image was obtained. All lumens were aspirated and flushed with saline. Sterile caps were attached to each lumen. The catheter was fixed to the skin with suture. A sterile dressing was placed. IMPRESSION: Successful placement of a temporary hemodialysis catheter NOTE: Temporary hemodialysis catheter intended for inpatient use only. Removal or conversion to a permanent tunneled catheter required prior to hospital discharge. Procedure performed by Ritika Curtis PA-C Interpreted by: Damari Gastelum MD Preliminary Report By: Ritika Curtis PA-C Electronically signed By Damari Gastelum MD Dictated Date: 02/10/2025 3:07:43 PM Prelim Date: 02/10/2025 3:08:34 PM Sign Date: 02/13/2025 8:57:30 AM Ordering Provider: [facility]03-25-2025 Nephrology Consult note Date of Service 02/10/2025 Reason for Consultation GENE, hyperkalemia Referring Physician MICU team History of Present Illness This is a 49 years old male with history of obesity, hypertension, diabetes mellitus type2, HFrEF EF 40-45%, for near gangrene s/p debridement, prior gluteal abscess wound, CKD 3B b/l cr 1.9 2.0 presented to the [place] ER with significant weakness, worsening lower extremity edema. In the ED he was noted to have hypertension blood pressure 171/93 satting 96% on room air, creatinine of6.19, bicarb 20, potassium 7.9, elevated proBNP. He was given IV Lasix high-dose and hyperkalemia cocktail and was transferred to the [place] [facility]. Nephrology is consulted for management of acute renal failure and critical hyperkalemia. Patient has multiple comorbidities does not follow-up with regu lar property utilization manager was seen by our team during prior hospitalization but did not follow-up in the office. He lives with his girlfriend and another roommate. Reports that he just noticed more weakness in both legs and leg swelling over the last few days. Reports compliance with medication. Denies any chest pain or shortness of breath. Denies any fever, abdominal pain, nausea, vomiting, or diarrhea. He denies any issues with urination, wears pad as he urinated from his penis and warm IBS suprapubicfistula. He is not following up with urology although he was supposed to. He reports taking naproxen daily. Review of Systems Detailed 14 point review of system performed pertinent positives and negatives are per history presenting illness otherwise all the systems reviewed and found to be negative Physical Exam Vitals and Measurements T: 36.7 C (Oral) HR: 101 (Monitored) RR: 22 BP: 164/91 SpO2: 91% HT: 188 cm WT: 143.8 kg BMI: 40.69 Weight Dosing Weight: 143.8 kg (02/10/25) General Appearance: Patient comfortable, morbidly obese, chronically ill , not in acute distress Head: Normocephalic, atraumatic Neck: Supple, no JVD Cardiac: Audible S1/S2,RRR Lungs: Clear to auscultation bilaterally, no wheeze, Abdomen: Soft , Nontender, non distended : Deferred Musculoskeletal: no gross deformities Extremities: +2 pedal edema Neurological: Alert, oriented x 3, CN II-XII intact Skin: No rash or ulcers Lab Results 02/10 07:51 Glucose Level: 270 H Sodium Level: 137 Potassium Level: 7.2 C Potassium Level: 7.1 C BUN: 54.0 H Creatinine Lvl (s): 5.86 H 02/10 04:55 WBC: 7.5 Hgb: 8.8 L Hct: 27.2 L Platelet: 211 Neutrophil %: 94.1 H Glucose Level: 235 H Sodium Level: 138 Potassium Level: 7.1 C BUN: 55.0 H Creatinine Lvl (s): 5.86 H 02/10 01:55 Glucose Level: 225 H Sodium Level: 139 Potassium Level: 6.6 C BUN: 55.0 H Creatinine Lvl (s): 5.85 H Assessment/Plan 1. Acute renal failure cr 6 on admission 2. Critical hyperkalemia 7.1 3. CKD stage IIIb baseline 1.9 2.0 2/2 diabetic nephropathy hypertension and heart disease 4. Hypertension 5. Volume overload 6. History of left gluteal abscess, Claire's gangrene, HFrEF, DM type II Worsening GENE could be related to his underlying CKD progression with diabetes nephropathy vs AIN 2/2 NSAID use (take naproxen daily) Plan: -Discussed with the patient refractory to medical treatment to correct hyperkalemia this morning potassium 7.1 will plan for dialysis urgently today. -Consult IR for temporary dialysis catheter appreciate assistance -Does not appear septic, hemodynamically stable. If low concern for infection well treat empirically with steroids -Urinalysis Has significant proteinuria RBCs and WBCs negative nitrate -Obtain urine protein/creatinine ratio - Renal ultrasound right kidney 11.2 cm, left kidney same size no hydronephrosis normal cortical echogenicity -Hyperkalemia should improve with dialysis -Discussed with patient important to avoid all NSAIDs including naproxen -Hold further diuretics, avoid RAAS blockade or MRA -Avoid contrast unless emergently needed Other protective measures for the kidney: Avoid nephrotoxic medications (NSAID's and iodinated IV contrast if possible, ..) Maintain MAP >65 at all times Transfuse for Hb < 7 Avoid hyperglycemia as able Thank you for allowing us to take care for Mr. Hahn. Please do not hesitate to reach out with any question or concern Problem List/Past Medical History Ongoing Diabetes GERD (gastroesophageal reflux disease) High cholesterol Procedure/Surgical History Testicle: 1993 Amputation Medications Inpatient Dextrose, 25 gram(s)= 50 mL, IV Push, AsDirected, PRN Dextrose 50% IV Push, 25 gram(s)= 50 mL, IV Push, AsDirected, PRN heparin 5000 units/mL injection, 5000 unit(s)= 1 mL, Subcutaneous, q8h HumuLIN R, sliding scale insulin, Subcutaneous, q4h, PRN Lokelma, 10 gram(s)= 1 packet(s), Oral, q8hr, PRN Nicoderm C-Q 21 mg/24 hr transdermal film, extended release, 21 mg= 1 patch(es), Transdermal, q24h nicotine (Nicoderm Patch REMOVAL), 1 EA, Miscellaneous, q24h Protonix, 40 mg= 1 tab(s), Oral, qDayAC sodium bicarbonate, 50 mEq= 50 mL, IV Push, Once Tylenol, 650 mg= 2 tab(s), Oral, q4h, PRN Zofran, 4 mg= 2 mL, IV Push, q4h, PRN Home bacitracin topical ointment, 1 artemio, Topical, BID bumetanide 1 mg oral tablet, 1 mg= 1 tab(s), Oral, BID, 2 refills Dakins Half Strength 0.25% topical solution, 1 artemio, Topical, BID Eliquis 5 mg oral tablet, 5 mg= 1 tab(s), Oral, BID, 4 refills emollients, topical, 1 artemio, Topical, BID gabapentin 100 mg oral capsule, 300 mg= 3 cap(s), Oral, qDay glimepiride 4 mg oral tablet, 8 mg= 2 tab(s), Oral, with breakfast HumaLOG 100 units/mL subcutaneous solution, Give 0-10 units/dose, Subcutaneous, TIDAC Lantus 100 units/mL10 ml vial solution, 15 unit(s), Subcutaneous (INT), qHS lidocaine 4% patch, Transdermal, q24h omeprazole 40 mg oral delayed release capsule, 40 mg= 1 cap(s), Oral, BID rosuvastatin 10 mg oral tablet, 10 mg= 1 tab(s), qDay Toprol-XL 100 mg oral tablet, extended release, 100 mg= 1 tab(s), Oral, BID, 3 refills Allergies ampicillin Unknown penicillin Unknown Social History Smoking Status - 08/17/2018 Current every day smoker Alcohol - No Risk, 09/19/2020 Use: Current. Frequency: 1-2 times per year., 07/07/2023 Home/Environment Living situation: Home/Independent. Safe place to go: Yes. Financial concerns: No. Domestic Concerns: None., 03/08/2024 Nutrition/Health Type of diet: Regular. Appetite Good. Eating Difficulties None., 03/08/2024 Substance Abuse - Denies Substance Abuse, 08/17/2018 Use: Never., 04/30/2019 Tobacco - No Risk, 09/19/2020 Tobacco Use: 10 or more cigarettes (1/2 pack or more)/day in last 30 days. Type: Cigarettes., 04/30/2019 Family History Patient was adopted Alcohol abuse: Father. Diabetes: Father. Health Status Family Member(s) Immunizations tetanus/diphth/pertuss (Tdap) adult/adol: 0.5 mL (08/17/18) Digitally Signed by CORAL CARY MD on 02/10/2025 10:[address] [facility] [id number] Note* Exam Date Time Procedure Performing Provider Status 02/10/25 6:37 AM XR Chest 1 View LINA ARMANDO MD; Aut h (Verified) [id number] ORIGINAL EXAMINATION: ONE XRAY VIEW OF THE CHEST 02/10/2025 6:37 am COMPARISON: None. HISTORY: ORDERING SYSTEM PROVIDED HISTORY: Reason for Exam: Shortness of breath FINDINGS: Mild cardiomegaly is redemonstrated. Interstitial and alveolar haziness throughout the lungs bilaterally peers unchanged. No pneumothorax or large effusion. Hypoventilatory changes are present. IMPRESSION: No interval change. Interpreted by: Lina Armando MD Preliminary Report By: Lina Armando MD Electronically signed By Lina Armando MD Dictated Date: 02/10/2025 6:47:44 AM Prelim Date: 02/10/2025 6:48:10 AM Sign Date: 02/10/2025 6:48:10 AM Ordering Provider: MRATÍN KEY [facility] [id number] Note* Exam Date Time Procedure Performing Provider Status 02/10/25 5:25 AM US Renal LINA ARMANDO MD; Auth ( Verified) [id number] ORIGINAL EXAMINATION: ULTRASOUND OF THE KIDNEYS 02/10/2025 5:30 am COMPARISON: 06/23/2024 HISTORY: ORDERING SYSTEM PROVIDED HISTORY: Reason for Exam: GENE on CKD FINDINGS: The right kidney measures 11.2 in length and the left kidney measures 11.2 in length. Kidneys demonstrate normal cortical echogenicity. No hydronephrosis or intrarenal stones. No focal lesions. The urinary bladder appears unremarkable with a calculated prevoid volume of 346 cc. The prostate is within normal limits for size. IMPRESSION: Unremarkable ultrasound of the kidneys. I have personally reviewed the images of this examination and agree with the resident's findings and interpretation. Interpreted by: Lina Armando MD Preliminary Report By: Eliana Rivero Electronically signed By Lina Armando MD Dictated Date: 02/10/2025 6:16:48 AM Prelim Date: 02/10/2025 6:22:11 AM Sign Date: 02/10/2025 6:52:46 AM Ordering Provider: [facility] [id number] Note* Exam Date Time Procedure Performing Provider Status 02/10/25 2:37 AM Electrocardiogram - EKG - CV NGOC MIN MD; Auth (Verified) ECG Final Report Sinus tachycardia Right bundle branch block Electronic Signature: NGOC MIN MD 02/10/2025 15:49:[address] [facility] [id number] Telephone encounter Note* Telephone Encounter - MOIRA Samuels CNP - 02/05/2025 8:34 AM EDT Noted. Agree with disposition. [id number] Miscellaneous Notes* Telephone Encounter - MOIRA Samuels CNP - 02/05/2025 8:34 AM EDT Noted. Agree with disposition. * Telephone Encounter - Marielos Lu RN - 02/05/2025 7:39 AM EDT S: Patient spoke with [facility] nurse regarding trouble breathing at night. B: Onset of symptoms 3 days. A: When he lays down he fights for air, legs are swollen new, swelling to his knees, when he sits up he is okay, BS this am 115. R: Appointment scheduled and patient's convenience, address given to the patient, instructed to bring photo ID, insurance info and medication list to the appointment. Instructed to elevate legs, decrease sodium intake, if sx's change or get worse will need to be [facility] the ER for eval. Patient understands care advice. No further needs at this time. Patient instructed to call back with new or worsening symptoms. Reason for Disposition [1] MILD difficulty breathing (e.g., minimal/no SOB at rest, SOB with walking, pulse <100) AND [2] NEW-onset or WORSE than normal Protocols used: Breathing [id number] documented in this encounterSProvidence [id number] Telephone encounter Note* Telephone Encounter - Marielos Lu RN - 02/05/2025 7:39 AM EDT S: Patient spoke with [facility] nurse regarding trouble breathing at night. B: Onset of symptoms 3 days. A: When he lays down he fights for air, legs are swollen new, swelling to his knees, when he sits up he is okay, BS this am 115. R: Appointment scheduled and patient's convenience, address given to the patient, instructed to bring photo ID, insurance info and medication list to the appointment. Instructed to elevate legs, decrease sodium intake, if sx's change or get worse will need to be [facility] the ER for eval. Patient understands care advice. No further needs at this time. Patient instructed to call back with new or worsening symptoms. Reason for Disposition [1] MILD difficulty breathing (e.g., minimal/no SOB at rest, SOB with walking, pulse <100) AND [2] NEW-onset or WORSE than normal Protocols used: Breathing [id number] [facility] [id number] Miscellaneous Notes* Telephone Encounter - Christina Shaffer - 01/26/2025 10:29 AM EDT Spoke to pts about upcoming PAT 02/19/2025 and Surgery 02/26/2025 at [facility] Doctor: Prince HERNÁNDEZ (arrive 15 min early): 02/19/2025 2:00 PM PAT instructions: Please bring photo ID, insurance card, list of all current medications Surgery: 02/26/2025 9:30 AM Surgery arrival time: 7:30 AM Surgery instructions: Nothing to eat after midnight. Can have clear liquids black coffee (no cream or dairy), tea, water, Sprite, apple juice, Gatorade (no reds or purples) up until arrival time. 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 FACILITY: [facility] DETAILS: OUTPT ANESTHESIA: GENERAL TIME REQUESTED: 1 hr DATE REQUESTED: ROUTINE FEBRUARY SURGERY ORDERS: will be placed Alex Morrison POST OP FOLLOW UP: 2 WK REP REQUESTED: No SPECIAL NEEDS: NONE PAT: yes MEDICAL CLEARANCE: Yes documented in this [facility]03-10-2025 Telephone encounter Note* Telephone Encounter - Christina Shaffer - 01/26/2025 10:29 AM EDT Spoke to pts about upcoming PAT 02/19/2025 and Surgery 02/26/2025 at [facility] Doctor: Prince HERNÁNDEZ (arrive 15 min early): 02/19/2025 2:00 PM PAT instructions: Please bring photo ID, insurance card, list of all current medications Surgery: 02/26/2025 9:30 AM Surgery arrival time: 7:30 AM Surgery instructions: Nothing to eat after midnight. Can have clear liquids black coffee (no cream or dairy), tea, water, Sprite, apple juice, Gatorade (no reds or purples) up until arrival time. 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 FACILITY: [facility] DETAILS: OUTPT ANESTHESIA: GENERAL TIME REQUESTED: 1 hr DATE REQUESTED: ROUTINE FEBRUARY SURGERY ORDERS: will be placed Alex Morrison POST OP FOLLOW UP: 2 WK REP REQUESTED: No SPECIAL NEEDS: NONE PAT: yes MEDICAL CLEARANCE: [facility]03-06-2025 Telephone encounter Note * Telephone Encounter - Jose Morrison MD - 01/22/2025 4:51 PM EST OR Request for surgery PROCEDURE: Cystoscopy, retrograde urethrogram, cystogram, bilateral retrograde pyelograms DIAGNOSIS: suprapubic drainage, 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 We thank you for trusting us with your patient's health. Last BP: BP Readings from Last 3 Encounters: 01/22/25 (!) 215/128 12/09/24 139/73 09/22/24 138/86 * Jose Morrison MD - 01/22/2025 3:50 PM EST Images from the original note were not included. 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 Hahn is a 49 y.o. male who presents to the office for follow up of Claire's gangrene Unable to locate operative reports from [facility] to determine exactly what was done besidesdebridement and primary closure. 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, prior extensive Claire's debridement of the scrotum and pelvis, R orch, ICU stay, voiding issues with fistula through SP region, wound care, CT, jonathan cysto, RUG, cystogram, pyelograms, Nephro referral 09/17/24 progress note wound care ([facility]) - reported Claire's back in March 2024 requiring multiple debridement and ICU stay, reported to have had a catheter at rehab but removed it himself, started to notice leakage of urine from somewhere besides penis 04/16/24 presented to [facility] ED - septic shock 2/2 Claire's gangrene, req intubation in ED, 2-3 debridements and eventually primary closure, discharged 05/06/24 Review of Systems Genitourinary: Negative for difficulty urinating, flank pain, hematuria, penile pain, penile swelling and scrotal swelling. Denies respiratory difficulty Denies distress Medications Current Outpatient Medications: acetaminophen (Tylenol) 500 MG tablet, TAKE 1 TABLET (500 MG) BY MOUTH EVERY 6 HOURS NEEDED FOR MILD PAIN (1-3) OR MODERATE PAIN (4-6), Disp: 60 tablet, Rfl: 0 Alcohol Swabs (B-D SINGLE USE SWABS REGULAR) pads, use three times a day as directed, Disp: 120 each, Rfl: 2 B-D UF III MINI PEN NEEDLES 31G X 5 MM misc, Inject 100 each under the skin daily. As directed, Disp: 100 each, Rfl: 2 Continuous Glucose Head Rigger (FreeStyle Yanni 3 [place]) device, Use as directed, Disp: 1 each, Rfl: 0 Continuous Glucose Sensor (FreeStyle Yanni 3 Sensor) misc, every 14 (fourteen) days., Disp: 2 each,Rfl: 5 gabapentin (Neurontin) 300 MG capsule, Take 1 capsule (300 mg) by mouth Nightly., Disp: 30 capsule,Rfl: 0 glimepiride (Amaryl) 4 MG tablet, Take 2 tablets (8 mg) by mouth daily (with breakfast)., Disp: 180tablet, Rfl: 1 glucose blood (True Metrix Blood Glucose Test) test strip, use 1 TEST STRIP to TEST BLOOD SUGAR twice a day, Disp: 100 strip, Rfl: 1 Lantus SoloStar 100 UNIT/ML pen, inject 16 units subcutaneously nightly, Disp: , Rfl: melatonin 3 MG tablet, TAKE 3 MG BY MOUTH NIGHTLY NEEDED (SLEEP)., Disp: 30 tablet, Rfl: 0 metoprolol succinate XL (Toprol-XL) 100 MG 24 hr tablet, Take 100 mg by mouth daily., Disp: , Rfl: omeprazole (PriLOSEC) [address] capsule, Take 1 capsule (40 mg) by mouth 2 times daily (before meals). Do not crush or chew., Disp: 60 capsule, Rfl: 2 polyethylene glycol, PEG, 3350 (Miralax) 17 g packet, Take 17 g by mouth daily. (Patient taking differently: Take 17 g by mouth as needed.), Disp: 30 packet, Rfl: 2 rosuvastatin (Crestor) 10 MG tablet, Take 1 tablet (10 mg) by mouth daily., Disp: 90 tablet, Rfl: 1 triamterene-hydrochlorothiazide (Maxzide-25) 37.5-25 MG tablet, Take 1 tablet by mouth daily., Disp: , Rfl: Eliquis 5 MG tablet, Take 1 tablet (5 mg) by mouth 2 times daily. (Patient not taking: Reported on 01/22/2025), Disp: 60 tablet, Rfl: 5 Vitals: BP (!) 215/128 Comment: Dr Morrison advised Pulse 94 Ht 6' 2 (1.88 m) Wt 300 lb (136 kg) BMI 38.52 kg/m Physical Exam Physical Exam Constitutional: General: He is not in acute distress. Appearance: He is obese. He is not ill-appearing. HENT: Head: Normocephalic and atraumatic. Right Ear: External ear normal. Left Ear: External ear normal. Nose: Nose normal. Eyes: Extraocular Movements: Extraocular movements intact. Pulmonary: Effort: Pulmonary effort is normal. No respiratory distress. Genitourinary: Comments: Purulence from midline suprapubic defect Testicle is palpable in the scrotum (favoring the right side) No scrotal fluctuance Induration suprapubically Neurological: Mental Status: He is alert. LABS: Lab Results Component Value Date PSA 0.377 06/22/2021 PSA 0.437 12/12/2019 No results found for: TESTOSTERONE Lab Results Component Value Date WBC 11.1 (H) 09/22/2024 HGB 6.9 (L) 09/22/2024 HCT 22.9 (L) 09/22/2024 MCV 81.2 09/22/2024 PLT 476 (H) 09/22/2024 Lab Results Component Value Date GLUCOSE 250 (H) 09/22/2024 CALCIUM 8.2 (L) 09/22/2024 NA 136 05/09/2022 K 5.0 05/09/2022 CO2 20 09/22/2024 CL 101 05/09/2022 BUN 42 (H) 09/22/2024 CREATININE 3.16 (H) 09/22/2024 No components found for: LABURIN @LASTPROCPOC@ Pathology: Radiology: Impression/Plan: Gurinder was seen today for other. 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 - Aerobic and Anaerobic Culture with Stain Hx Claire's gangrene requiring multiple debridements in April 2024 followed by primary closure Had development of urine leakage from a pinpoint opening in the suprapubic region, drains purulent fluid along with what appears to be urine per patient report DM better controlled BP uncontrolled - 215/128 in the office today, asymptomatic Has family medicine appt on 02/02/25 to discuss comorbidities Will arrange for CT A/P w/o contrast (baseline CKD stage 4 w/ GFR of 23 on last check in September) Schedule cystoscopy, retrograde urethrogram, cystogram, bilateral retrograde pyelograms to assess for fistulous tract Will need medical clearance due to comorbidities Follow up for schedule surgery. Jose Morrison MD 01/22/25 4:50 PM documented in this [facility]03-03-2025 NoteAngie called in to reschedule the patient appt. 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 Appt was already cancelled through [employer]. No rescheduling at this time. * Telephone Encounter - Maira Braden - 12/24/2024 10:35 AM EST Lisset called in stating she needs to cancel the patient's appt today 12/24/24 11:50 AM Monica w/Karley. R/S now 12/30/24 9:40 AM w/DR Morrison in [place]. * Telephone Encounter - Gracie Arzate - 12/16/2024 11:27 AM EST Pts gf called in to r/s appt on 12/18. 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 - Gross hematuria- Chronic renal disease, stage IV (HCC) * Telephone Encounter - Garrick Velasquez MD - 12/09/2024 6:02 PM EST SURGERY SCHEDULING PROCEDURE: : Cystoscopy, retrograde urethrogram, cystogram, retrograde pyelogram DIAGNOSIS: Vesicocutaneous fistula FACILITY: Any DETAILS: OUTPT ANESTHESIA: GENERAL TIME REQUESTED: 1 HR DATE REQUESTED: ROUTINE POST OP FOLLOW UP: 2 WK REP REQUESTED: MEDICAL CLEARANCE: CONFERENCE: NO COVID TESTING: NO documented in this encounterSProvidence [id number] Telephone encounter Note* Telephone Encounter - MOIRA Samuels CNP - 01/05/2025 8:19 AM EST Reviewed chart. Refill not appropriate, too soon. RX refused [facility] [id number] Miscellaneous Notes* Telephone Encounter - MOIRA Samuels CNP - 01/05/2025 8:19 AM EST Reviewed chart. Refill not appropriate, too soon. RX refused * Telephone Encounter - Yadira Uribe MA - 01/05/2025 8:14 AM EST Prescription Request: Last medication check: 09/22/24 Last physical exam: none Next scheduled appointment: 02/02/25 CSA 09/22/24 Last date of refill on this medication 12/29/24 documented in this encounterSumma [id number] Telephone encounter Note* Telephone Encounter - Yadira Uribe MA - 01/05/2025 8:14 AM EST Prescription Request: Last medication check: 09/22/24 Last physical exam: none Next scheduled appointment: 02/02/25 CSA 09/22/24 Last date of refill on this medication 12/29/24 [facility] [id number] Telephone encounter Note* Telephone Encounter - Maira Braden - 12/30/2024 8:07 AM EST Lisset called in to cancel 12/30/24 appt in [place] w/DR Morrison states the patient isn't feeling well. Appt was already cancelled through [employer]. No rescheduling at this time. [facility] [id number] Miscellaneous Notes* Telephone Encounter - Maira Braden - 12/30/2024 8:07 AM EST Lisset called in to cancel 12/30/24 appt in [place] w/DR Morrison states the patient isn't feeling well. Appt was already cancelled through [employer]. No rescheduling at this time. * Telephone Encounter - Maira Braden - 12/24/2024 10:35 AM EST Lisset called in stating she needs to cancel the patient's appt today 12/24/24 11:50 AM Monica [place]. R/S now 12/30/24 9:40 AM w/DR Morrison in [place]. * Telephone Encounter - Gracie Arzate - 12/16/2024 11:27 AM EST Pts gf called in to r/s appt on 12/18. 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 - Gross hematuria- Chronic renal disease, stage IV (HCC) * Telephone Encounter - Garrick Velasquez MD - 12/09/2024 6:02 PM EST SURGERY SCHEDULING PROCEDURE: : Cystoscopy, retrograde urethrogram, cystogram, retrograde pyelogram DIAGNOSIS: Vesicocutaneous fistula FACILITY: Any DETAILS: OUTPT ANESTHESIA: GENERAL TIME REQUESTED: 1 HR DATE REQUESTED: ROUTINE POST OP FOLLOW UP: 2 WK REP REQUESTED: MEDICAL CLEARANCE: CONFERENCE: NO COVID TESTING: NO documented in this [facility]02-05-2025 Telephone encounter Note* Telephone Encounter - Maira Braden - 12/24/2024 10:35 AM EST Lisset called in stating she needs to cancel the patient's appt today 12/24/24 11:50 AM Monica w/Karley. R/S now 12/30/24 9:40 AM w/DR Morrison in [place]. [facility] [id number] Miscellaneous Notes* Telephone Encounter - Maira Braden - 12/24/2024 10:35 AM EST Lisset called in stating she needs to cancel the patient's appt today 12/24/24 11:50 AM Monica w/Karley. R/S now 12/30/24 9:40 AM w/DR Morrison in [place]. * Telephone Encounter - Gracie Arzate - 12/16/2024 11:27 AM EST Pts gf called in to r/s appt on 12/18. 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 - Gross hematuria- Chronic renal disease, stage IV (HCC) * Telephone Encounter - Garrick Velasquez MD - 12/09/2024 6:02 PM EST SURGERY SCHEDULING PROCEDURE: : Cystoscopy, retrograde urethrogram, cystogram, retrograde pyelogram DIAGNOSIS: Vesicocutaneous fistula FACILITY: Any DETAILS: OUTPT ANESTHESIA: GENERAL TIME REQUESTED: 1 HR DATE REQUESTED: ROUTINE POST OP FOLLOW UP: 2 WK REP REQUESTED: MEDICAL CLEARANCE: CONFERENCE: NO COVID TESTING: NO documented in this [facility]01-28-2025 Telephone encounter Note* Telephone Encounter - Gracie Arzate - 12/16/2024 11:27 AM EST Pts gf called in to r/s appt on 12/18. He is now scheduled 12/24/[address] Morrison in [place] [facility] [id number] Miscellaneous Notes* Telephone Encounter - Gracie Arzate - 12/16/2024 11:27 AM EST Pts gf called in to r/s appt on 12/18. 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 - Gross hematuria- Chronic renal disease, stage IV (HCC) * Telephone Encounter - Garrick Velasquez MD - 12/09/2024 6:02 PM EST SURGERY SCHEDULING PROCEDURE: : Cystoscopy, retrograde urethrogram, cystogram, retrograde pyelogram DIAGNOSIS: Vesicocutaneous fistula FACILITY: Any DETAILS: OUTPT ANESTHESIA: GENERAL TIME REQUESTED: 1 HR DATE REQUESTED: ROUTINE POST OP FOLLOW UP: 2 WK REP REQUESTED: MEDICAL CLEARANCE: CONFERENCE: NO COVID TESTING: NO documented in this [facility]01-27-2025 Telephone encounter Note* Telephone Encounter - Maira Braden - 12/15/2024 9:54 AM EST Girlfriend of patient called in asking to schedule another appointment for a second opinion - Offered 12/16/24 10:30 AM Monica Morrison- 2nd opinion (seen 12/09/24) referral for 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 - Gross hematuria- Chronic renal disease, stage IV (HCC) [facility] [id number] Miscellaneous Notes* Telephone Encounter - Maira Braden - 12/15/2024 9:54 AM EST Girlfriend of patient called in asking to schedule another appointment for a second opinion - Offered 12/16/24 10:30 AM Monica Morrison- 2nd opinion (seen 12/09/24) referral for 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 - Gross hematuria- Chronic renal disease, stage IV (HCC) * Telephone Encounter - Garrick Velasquez MD - 12/09/2024 6:02 PM EST SURGERY SCHEDULING PROCEDURE: : Cystoscopy, retrograde urethrogram, cystogram, retrograde pyelogram DIAGNOSIS: Vesicocutaneous fistula FACILITY: Any DETAILS: OUTPT ANESTHESIA: GENERAL TIME REQUESTED: 1 HR DATE REQUESTED: ROUTINE POST OP FOLLOW UP: 2 WK REP REQUESTED: MEDICAL CLEARANCE: CONFERENCE: NO COVID TESTING: NO documented in this [facility]01-21-2025 NoteSURGERY SCHEDULING PROCEDURE: : Cystoscopy, retrograde urethrogram, cystogram, retrograde pyelogram DIAGNOSIS: Vesicocutaneous fistula FACILITY: Any DETAILS: OUTPT ANESTHESIA: GENERAL TIME REQUESTED: 1 HR DATE REQUESTED: ROUTINE POST OP FOLLOW UP: 2 WK REP REQUESTED: MEDICAL CLEARANCE: CONFERENCE: NO COVID TESTING: [facility]01-21-2025 Telephone encounter Note* Telephone Encounter - Garrick Velasquez MD - 12/09/2024 6:02 PM EST SURGERY SCHEDULING PROCEDURE: : Cystoscopy, retrograde urethrogram, cystogram, retrograde pyelogram DIAGNOSIS: Vesicocutaneous fistula FACILITY: Any DETAILS: OUTPT ANESTHESIA: GENERAL TIME REQUESTED: 1 HR DATE REQUESTED: ROUTINE POST OP FOLLOW UP: 2 WK REP REQUESTED: MEDICAL CLEARANCE: CONFERENCE: NO COVID TESTING: NO [facility] Phone: [phone] History of Present illness Narrative* Garrick Velasquez MD - 12/09/2024 9:30 AM EST Images from the original note were not included. Garrick Velasquez MD 12/09/2024 at 5:57 PM UROLOGY INITIAL OFFICE VISIT PATIENT NAME: Gurinder Hahn DATE OF : 1975 TODAY'S DATE: 12/09/2024 Chief Complaint: Chief Complaint Patient presents with New Patient had sepsis and gangrene in testicle area, now has an open spot that urine is coming thru, urethral erosion, green discharge HPI Mr. Hahn is a 49 y.o. male who presents with Claire's gangrene. He was seen at [facility] in [place] and was transferred to 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 He had right orchiectomy was in the intensive care for an extended period of time and is just now finishing with wound care. It sounds like he had several debridements but no plastic surgery. He does have a previous history of bilateral orchidopexy for undescended testicles. He is now complaining about voiding through his urethra as well as a fistulous track in his suprapubic region. He is diabetic and does complain of erectile dysfunction Review of Systems Constitutional: Negative for unexpected weight change. HENT: Negative for ear pain and trouble swallowing. Eyes: Negative for pain and discharge. Respiratory: Negative for shortness of breath and wheezing. Cardiovascular: Negative for chest pain and palpitations. Gastrointestinal: Negative for anal bleeding and rectal pain. Endocrine: Negative for cold intolerance and heat intolerance. Genitourinary: See HPI Skin: Negative for rash. Neurological: Negative for tremors and weakness. Psychiatric/Behavioral: Negative for suicidal ideas. The patient is not hyperactive. Past Medical History: Past Medical History: Diagnosis Date Acute respiratory failure (HCC) Acute vomiting 05/26/2021 Atrial fibrillation (HCC) GERD (gastroesophageal reflux disease) Gout Hyperglycemia Hyperlipidemia Hypertension Necrotizing fasciitis (HCC) 09/22/2024 Osteoarthritis Sepsis (HCC) Sepsis, unspecified organism (HCC) 06/30/2024 Type 2 diabetes mellitus without complication ([facility]/HCC) (HCC) UTI symptoms 01/13/2021 Weight loss 07/17/2022 Past Surgical History: Past Surgical History: Procedure Laterality Date CYST REMOVAL sebacious cyst rmoved TESTICLE SURGERY TOE AMPUTATION Right 05/14/2020 Partial amputation 2nd toe TOE AMPUTATION Right 11/15/2020 right 3rd toe TOE SURGERY Left tip of second toe removed (done under local anesthesia per Dr. Arredondo) WISDOM TOOTH EXTRACTION Current Medications: Prior to Admission medications Medication Sig Start Date End Date Taking? Authorizing Provider acetaminophen (Tylenol) 500 MG tablet Take 1 tablet (500 mg) by mouth every 6 hours as needed for mild pain (1-3) or moderate pain (4-6). 10/27/24 Yes MOIRA Peralta CNP Alcohol Swabs (B-D SINGLE USE SWABS REGULAR) pads use three times a day as directed 08/13/23 Yes MOIRA Peralta CNP B-D UF III MINI PEN NEEDLES 31G X 5 MM misc Inject 100 each under the skin daily. As directed 08/13/23 Yes MOIRA Peralta CNP Continuous Glucose Head Rigger (FreeStyle Yanni 3 [place]) device Use as directed 09/22/24 Yes MOIRA Peralta CNP Continuous Glucose Sensor (FreeStyle Yanni 3 Sensor) misc every 14 (fourteen) days. 11/10/24 Yes MOIRA Samuels CNP gabapentin (Neurontin) 300 MG capsule Take 1 capsule (300 mg) by mouth Nightly. 11/21/24 Yes MOIRA Peralta CNP glimepiride (Amaryl) 4 MG tablet Take 2 tablets (8 mg) by mouth daily (with breakfast). 10/24/24 YesMOIRA Peralta CNP glucose blood (True Metrix Blood Glucose Test) test strip use 1 TEST STRIP to TEST BLOOD SUGAR twice a day 11/06/24 Yes MD Vivi Wongus SoloStar 100 UNIT/ML pen inject 16 units subcutaneously nightly 09/24/24 Yes MOIRA Peralta CNP Melatonin 3 MG tablet dispersible Take 3 mg by mouth Nightly as needed (sleep). 11/20/24 Yes ShreyaMOIRA Orellana CNP metoprolol succinate XL (Toprol-XL) 100 MG 24 hr tablet Take 100 mg by mouth daily. 09/11/24 Yes Historical Provider, omeprazole (PriLOSEC) [address] capsule Take 1 capsule (40 mg) by mouth 2 times daily (before meals). Do not crush or chew. 12/08/24 Yes MOIRA Peralta CNP polyethylene glycol, PEG, 3350 (Miralax) 17 g packet Take 17 g by mouth daily. Patient taking differently: Take 17 g by mouth as needed. 07/30/23 Yes MOIRA Peralta CNP rosuvastatin (Crestor) 10 MG tablet Take 1 tablet (10 mg) by mouth daily. 09/24/24 Yes MOIRA Peralta CNP triamterene-hydrochlorothiazide (Maxzide-25) 37.5-25 MG tablet Take 1 tablet by mouth daily. 08/28/22 Yes Historical Provider, Eliqunasreen 5 MG tablet Take 1 tablet (5 mg) by mouth 2 times daily. Patient not taking: Reported on 12/09/2024 10/27/24 MOIRA Peralta CNP omeprazole (PriLOSEC) [address] capsule take 1 capsule by mouth every morning and 1 every evening before meals 04/02/24 12/08/24 Artie Jackson MD Allergies: Ampicillin, Trulicity [dulaglutide], and Penicillins Social History: Social History Socioeconomic History Marital status: Spouse name: Not on file Number of children: Not on file Years of education: Not on file Highest education level: Not on file Occupational History Not on file Tobacco Use Smoking status: Every Day Current packs/day: 1.00 Average packs/day: 1 pack/day for 35.0 years (35.0 ttl pk-yrs) Types: Cigarettes Start date: 12/12/1989 Smokeless tobacco: Current Vaping Use Vaping status: Never Used Substance and Sexual Activity Alcohol use: Yes Comment: Occasional Drug use: No Sexual activity: Defer Other Topics Concern Not on file Social History Narrative Not on file Social Drivers of Health Financial Resource Strain: Low Risk (09/20/2024) Overall Financial Resource Strain (CARDIA) Difficulty of Paying Living Expenses: Not hard at all Food Insecurity: No Food Insecurity (09/20/2024) Hunger Vital Sign Worried About Running Out of Food in the Last Year: Never true Ran Out of Food in the Last Year: Never true Transportation Needs: No Transportation Needs (09/20/2024) PRAPARE - Transportation Lack of Transportation (Medical): No Lack of Transportation (Non-Medical): No Physical Activity: Patient Declined (09/20/2024) Exercise Vital Sign Days of Exercise per Week: Patient declined Minutes of Exercise per Session: Patient declined Stress: No Stress Concern Present (09/20/2024) [employer] - Occupational Stress Questionnaire Feeling of Stress : Not at all Social Connections: Unknown (09/20/2024) Social Connection and Isolation Panel [NHANES] Frequency of Communication with Friends and Family: Never Frequency of Social Gatherings with Friends and Family: Patient declined Attends Mandaeism Services: Patient declined Active Member of Clubs or Organizations: No Attends Club or Organization Meetings: Never Marital Status: Living with partner Intimate Partner Violence: Not on file Housing Stability: Low Risk (09/20/2024) Housing Stability Vital Sign Unable to Pay for Housing in the Last Year: No Number of Times Moved in the Last Year: 0 Homeless in the Last Year: No Family History: Family History Adopted: Yes Problem Relation Name Age of Onset No Known Problems Mother High Blood Pressure Father Heart disease Father COPD Father Diabetes Father VITALS: BP 139/73 Pulse 85 Ht 6' 2 (1.88 m) Wt 300 lb (136 kg) BMI 38.52 kg/m Physical Exam Constitutional: Patient is oriented to person, place, and time. Patient appears well-developed and well-nourished. No distress. HENT: Head: Normocephalic and atraumatic. Eyes: Pupils are equal, round, and reactive to light. EOM are normal. No scleral icterus. Neck: Normal range of motion. Neck supple. No JVD present. Cardiovascular: Normal rate and regular rhythm. Pulmonary/Chest: Effort normal. No respiratory distress. Abdominal: Soft. Exhibits no distension and no mass. There is no rebound. Genitourinary: Surgically absent right testicle. Circumcised penis somewhat buried. Small pinhole opening just above the base of the penis in the midline. Noted penile deformity. Left testicle is palpably normal. Prostate is small and somewhat nodular but his PSA is 0.42 Musculoskeletal: Patient exhibits no edema or deformity. Neurological: Is alert and oriented to person, place, and time. Skin: Skin is warm and dry. Psychiatric: Has a normal mood and affect. Judgment normal. DATA: LABS: No results found for: PSAFREE, PSAFREEPCT No results for input(s): PSAFREE, PSAFREEPCT in the last 72 hours. No results found for: TESTOSTERONE Lab Results Component Value Date WBC 11.1 (H) 09/22/2024 HGB 6.9 (L) 09/22/2024 HCT 22.9 (L) 09/22/2024 MCV 81.2 09/22/2024 PLT 476 (H) 09/22/2024 Lab Results Component Value Date GLUCOSE 250 (H) 09/22/2024 CALCIUM 8.2 (L) 09/22/2024 NA 136 05/09/2022 K 5.0 05/09/2022 CO2 20 09/22/2024 CL 101 05/09/2022 BUN 42 (H) 09/22/2024 CREATININE 3.16 (H) 09/22/2024 No components found for: LABURIN @[email or web address]@ Radiology Review: Impression: Diagnosis Plan 1. Claire gangrene 2. 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 Gross hematuria CT abdomen pelvis wo IV contrast 4. Chronic kidney disease, unspecified CKD stage Basic metabolic panel Basic metabolic panel Plan: Claire's gangrene-extensive debridement with right orchiectomy no sign of current infection. Continue to follow with wound care as needed Possible urinary fistula-schedule CT scan to make sure there are no pelvic fluid collection. Schedule cystoscopy retrograde urethrogram cystogram and retrograde pyelogram to further delineate for possible fistula and plan for repair Chronic kidney disease-his creatinine is 3 he should follow-up with nephrology Erectile dysfunction-related to diabetes, chronic illness. Workup and treat after evaluation for fistula Follow up for bmp and flank ct, schedule surgery. Garrick Velasquez MD 12/09/24 5:57 PM documented in this [facility]01-06-2025 Telephone encounter Note* Telephone Encounter - Gracie Arzate - 11/24/2024 1:24 PM EST Pts so called in to r/s appt. He is now scheduled 12/09/24 [id number] Miscellaneous Notes* Telephone Encounter - Gracie Arzate - 11/24/2024 1:24 PM EST Pts so called in to r/s appt. He is now scheduled 12/09/24 * Telephone Encounter - Onelia Zuniga - 10/21/2024 1:49 PM EST Patient confirmed Patient appointment on Sunday11/25/2024. * Telephone Encounter - Missy Pereira - 10/21/2024 12:06 PM EST Preferred contact number: [phone] Reason for Visit: New Patient 10-21-[address] Velasquez cancelled due to transportation issues. Please call to reschedule accordingly Urgency of Appointment: New Patient Medications in need of refill: NA documented in this [id number] Telephone encounter Note* Telephone Encounter - MOIRA Samuels CNP - 11/20/2024 8:26 AM EST Reviewed chart. Refill appropriate. RX sent. [id number] Miscellaneous Notes* Telephone Encounter - MOIRA Samuels CNP - 11/20/2024 8:26 AM EST Reviewed chart. Refill appropriate. RX sent. * Telephone Encounter - Miguelina Ashford MA - 11/20/2024 8:18 AM EST Prescription Request: Last medication check: 09/22/24 Last physical exam: none Next scheduled appointment: none Last date of refill on this medication 10/29/24 30 and no refill documented in this [facility]01-02-2025 Telephone encounter Note* Telephone Encounter - Miguelina Ashford MA - 11/20/2024 8:18 AM EST Prescription Request: Last medication check: 09/22/24 Last physical exam: none Next scheduled appointment: none Last date of refill on this medication 10/29/24 30 and no refill [id number] Telephone encounter Note* Telephone Encounter - Onelia Zuniga - 10/21/2024 1:49 PM EST Patient confirmed Patient appointment on Sunday11/25/2024. [id number] Telephone encounter Note* Telephone Encounter - Missy Pereira - 10/21/2024 12:06 PM EST Preferred contact number: [phone] Reason for Visit: New Patient 10-21-[address] Velasquez cancelled due to transportation issues. Please call to reschedule accordingly Urgency of Appointment: New Patient Medications in need of refill: NA [id number] History of Present illness Narrative* MOIRA Peralta CNP - 09/22/2024 1:40 PM EST Images from the original note were not included. Patient Gurinder Hahn 49 y.o. male, presents today with Chief Complaint Patient presents with Blood Work Health Maintenance Echo- had done in the hospital Flu- declines Hiv/Hep C screen- declines Crcs- declines PNA- declines Dm Dental- not done Hep A- declines Covid- not done Care Management . HPI- Gurinder Hahn presents today with his girlfriend for follow up on his diabetes and other chronic health conditions. Previous hemoglobin A1c was 7.6% on 07/14/24. Was in the long-term for about 4-5 months and has been home since 08/07/24. Is not receiving any home therapy services and is doing well without it. Has assistance with ADL's via family and housemates. Diabetes Mellitus Type II: Known diabetic complications: nephropathy, peripheral neuropathy, and cardiovascular disease- needsto follow back up with a kidney specialist since being discharged home. Neuropathy has not been as well controlled. Would like to start back on his 300 mg dose of his Gabapentin. Not following up with cardiology- taking Eliquis as prescribed and denies signs of bleeding. Cardiovascular risk factors: diabetes mellitus, dyslipidemia, hypertension, obesity (BMI >= 30 kg/m2), sedentary lifestyle, and smoking/ tobacco exposure Current diabetic medications include: Glimepiride and Lantus- 14 units nightly. Eye exam current (within one year): yes - 10/30/23 Dental exam current (within one year): No- reminded to schedule Weight trend: stable Current diet: in general, an unhealthy diet Current exercise: none Current monitoring regimen: home blood tests - daily Home blood sugar records: fasting range: 160's and postprandial range: low 200's - would like to get a continuous glucometer since he is on insulin Any episodes of hypoglycemia? No Is He on FLORINDA inhibitor or angiotensin II receptor huyen? No- no longer taking Lisinopril due to renal failure- blood pressure is stable today at 138/86. Taking Metoprolol as prescribed. Currently on statin therapy? Yes - Rosuvastatin. Will check cholesterol levels today. Last urine microalbumin was 596.4 mg/L on 01/08/23- will recheck today. Last foot exam was 01/08/23- will do today. Has a bed sore on his buttocks that is improving. Is actively following up with wound care center in [place] every 2 weeks and has been packing his wound at home. Had gangrene of his penis and is following up with wound and is in the process of getting set up with urology for ongoing management. Health Maintenance: Declines a flu vaccination. Declines screening for HIV and Hep C. States he hadan echocardiogram while hospitalized- will request records. Declines a colonoscopy for colon cancerscreening and all other forms of screening at this time. Declines to be vaccinated for pneumonia. Declines to be vaccinated for Hep A. Declines to be vaccinated for COVID-19. Tdap current: 08/17/18. Past Medical History: Diagnosis Date Acute respiratory failure (HCC) Acute vomiting 05/26/2021 Atrial fibrillation (HCC) GERD (gastroesophageal reflux disease) Gout Hyperglycemia Hyperlipidemia Hypertension Necrotizing fasciitis (HCC) 09/22/2024 Osteoarthritis Sepsis (HCC) Sepsis, unspecified organism (HCC) 06/30/2024 Type 2 diabetes mellitus without complication (CMS/HCC) (HCC) UTI symptoms 01/13/2021 Weight loss 07/17/2022 Past Surgical History: Procedure Laterality Date CYST REMOVAL sebacious cyst rmoved TESTICLE SURGERY TOE AMPUTATION Right 05/14/2020 Partial amputation 2nd toe TOE AMPUTATION Right 11/15/2020 right 3rd toe TOE SURGERY Left tip of second toe removed (done under local anesthesia per Dr. Arredondo) WISDOM TOOTH EXTRACTION Family History Adopted: Yes Problem Relation Name Age of Onset No Known Problems Mother High Blood Pressure Father Heart disease Father COPD Father Diabetes Father Social History Socioeconomic History Marital status: Spouse name: Not on file Number of children: Not on file Years of education: Not on file Highest education level: Not on file Occupational History Not on file Tobacco Use Smoking status: Every Day Current packs/day: 1.00 Average packs/day: 1 pack/day for 34.8 years (34.8 ttl pk-yrs) Types: Cigarettes Start date: 12/12/1989 Smokeless tobacco: Current Vaping Use Vaping status: Never Used Substance and Sexual Activity Alcohol use: Yes Comment: Occasional Drug use: No Sexual activity: Defer Other Topics Concern Not on file Social History Narrative Not on file Social Drivers of Health Financial Resource Strain: Low Risk (09/20/2024) Overall Financial Resource Strain (CARDIA) Difficulty of Paying Living Expenses: Not hard at all Food Insecurity: No Food Insecurity (09/20/2024) Hunger Vital Sign Worried About Running Out of Food in the Last Year: Never true Ran Out of Food in the Last Year: Never true Transportation Needs: No Transportation Needs (09/20/2024) PRAPARE - Transportation Lack of Transportation (Medical): No Lack of Transportation (Non-Medical): No Physical Activity: Patient Declined (09/20/2024) Exercise Vital Sign Days of Exercise per Week: Patient declined Minutes of Exercise per Session: Patient declined Stress: No Stress Concern Present (09/20/2024) [employer] [place] [employer] - Occupational Stress Questionnaire Feeling of Stress : Not at all Social Connections: Unknown (09/20/2024) Social Connection and Isolation Panel [NHANES] Frequency of Communication with Friends and Family: Never Frequency of Social Gatherings with Friends and Family: Patient declined Attends Mandaeism Services: Patient declined Active Member of Clubs or Organizations: No Attends Club or Organization Meetings: Never Marital Status: Living with partner Intimate Partner Violence: Not on file Housing Stability: Low Risk (09/20/2024) Housing Stability Vital Sign Unable to Pay for Housing in the Last Year: No Number of Times Moved in the Last Year: 0 Homeless in the Last Year: No Health Maintenance Topic Date Due Echocardiogram Never done Diabetes: Dental Exam Never done Diabetes: Urine Albumin-Creatinine Ratio for Kidney Health 01/08/2024 Lipid Panel 01/08/2024 Diabetes: Hemoglobin A1C 04/05/2024 Influenza Vaccine (1) 05/18/2025 (Originally 07/20/2024) Hepatitis A Vaccines (1 of 2 - Risk 2-dose series) 09/22/2025 (Originally 1996) Pneumococcal Vaccine: Pediatrics (0 to 5 Years) and At-Risk Patients (6 to 64 Years) (1 of 2 - PCV)09/22/2025 (Originally 1983) HIV Screening 09/22/2025 (Originally 1977) Hepatitis C Screening 09/22/2025 (Originally 1995) Colorectal Cancer Screening 09/22/2025 (Originally 1977) COVID-19 Vaccine ( season) 2025 (Originally 07/20/2024) Creatinine Level 10/16/2024 Potassium Level 10/16/2024 Diabetes: Estimated Glomerular Filtration Rate for Kidney Health 10/16/2024 Diabetes: Retinopathy Screening 10/30/2024 Depression Screening 09/20/2025 Diabetes: Foot Exam 09/22/2025 Zoster Vaccines (1 of 2) 2027 DTaP/Tdap/Td Vaccines (2 - Td or Tdap) 08/17/2028 RSV Immunization for Adults (1 - 1-dose 75+ series) 2052 MMR Vaccines Completed RSV Immunization under 20 Months Aged Out HIB Vaccines Aged Out IPV Vaccines Aged Out Meningococcal Vaccine Aged Out Rotavirus Vaccines Aged Out HPV Vaccines Aged Out Hepatitis B Vaccines Discontinued Allergies Allergen Reactions Ampicillin Trulicity [Dulaglutide] Nausea And Vomiting Penicillins Rash Review of Systems Constitutional: Negative for chills and fever. Respiratory: Negative for shortness of breath. Cardiovascular: Negative for chest pain. Gastrointestinal: Negative for abdominal distention and abdominal pain. Endocrine: Negative for polydipsia, polyphagia and polyuria. Genitourinary: Positive for difficulty urinating. Negative for dysuria and hematuria. Skin: Positive for wound. Neurological: Positive for weakness and numbness. Negative for dizziness, syncope and headaches. BP 138/86 Pulse 83 Ht 6' 2 (1.88 m) Wt 271 lb (123 kg) SpO2 99% BMI 34.79 kg/m Physical Exam Constitutional: General: He is not in acute distress. Appearance: He is obese. He is not ill-appearing or diaphoretic. Eyes: General: No scleral icterus. Neck: Vascular: No carotid bruit. Cardiovascular: Rate and Rhythm: Normal rate and regular rhythm. Pulses: Normal pulses. Heart sounds: Normal heart sounds. No murmur heard. No friction rub. Pulmonary: Effort: Pulmonary effort is normal. Breath sounds: Normal breath sounds. No wheezing, rhonchi or rales. Abdominal: General: Abdomen is protuberant. Bowel sounds are normal. There is no distension. Palpations: Abdomen is soft. There is no hepatomegaly, splenomegaly or mass. Tenderness: There is no abdominal tenderness. There is no guarding or rebound. Musculoskeletal: Cervical back: Neck supple. Right lower leg: Edema present. Left lower leg: Edema present. Lymphadenopathy: Cervical: No cervical adenopathy. Skin: General: Skin is warm and dry. Coloration: Skin is not jaundiced or pale. Findings: No erythema or rash. Comments: Diabetic foot check: Normal strength and range of motion of toes, feet, and ankles bilaterally. No joint deformity. No cyanosis or clubbing. Decreased sensation with the 10 gram filament. Dorsalis pedis pulses intact bilaterally. Capillary refill at the toes was less than 2 seconds. Hair growth present on feet and toes bilaterally. No skin breakdown, erythema, rub spots, blisters, scaling, or ulcers. No calluses or corns. Toenails were yellow, crumbly and thickened with nail debris under all ten digits. Neurological: Mental Status: He is alert and oriented to person, place, and time. Psychiatric: Mood and Affect: Mood normal. Behavior: Behavior normal. Thought Content: Thought content normal. Judgment: Judgment normal. Assessment and Plan: 1. Diabetes mellitus with proteinuria (CMS/HCC) ([facility]) ([facility]) - Comprehensive metabolic panel - Microalbumin / creatinine urine ratio - Hemoglobin A1c - CBC - Diabetes Foot Exam - External referral to Nephrology - Continuous Glucose Head Rigger (FreeStyle Yanni 3 [place]) device; Use as directed, Normal - Continuous Glucose Sensor (FreeStyle Yanni 3 Sensor) misc; every 14 (fourteen) days., Starting Sun09/22/2024, Normal - Lantus SoloStar 100 UNIT/ML pen; inject 14 units subcutaneously every morning, No Print - Encouraged healthy diet low in carbohydrates and sugar. - Will notify of blood work results and provide recommendations accordingly. 2. Type 2 diabetes mellitus with diabetic polyneuropathy, with long-term current use of insulin ([facility]) - Comprehensive metabolic panel - Microalbumin / creatinine urine ratio - Hemoglobin A1c - CBC - Diabetes Foot Exam - Continuous Glucose Head Rigger (FreeStyle Yanni 3 [place]) device; Use as directed, Normal - Continuous Glucose Sensor (FreeStyle Yanni 3 Sensor) misc; every 14 (fourteen) days., Starting Sun09/22/2024, Normal - Lantus SoloStar 100 UNIT/ML pen; inject 14 units subcutaneously every morning, No Print - gabapentin (Neurontin) 300 MG capsule; Take 1 capsule (300 mg) by mouth Nightly., Starting Sun09/22/2024, Normal - Neuropathy not well controlled. Will increase Gabapentin to 300 mg nightly. Rx sent. OAR[facility] reportreviewed with no discrepancies. CSA signed today. 3. Encounter for diabetic foot exam ([facility]) - Diabetes Foot Exam 4. Paroxysmal atrial fibrillation ([facility]) - Comprehensive metabolic panel - CBC - Stable. Continue Eliquis and Metoprolol as prescribed. 5. Cardiomyopathy, unspecified type ([facility]) - Lipid panel - Comprehensive metabolic panel - CBC - Stable. Continue Eliquis and Metoprolol as prescribed. - Will obtain echocardiogram results for review. 6. Chronic renal disease, stage IV (HCC) - Comprehensive metabolic panel - Microalbumin / creatinine urine ratio - CBC - External referral to Nephrology - Stressed importance of following up with nephrology- new referral placed. 7. Class 1 obesity due to excess calories without serious comorbidity with body mass index (BMI) of34.0 to 34.9 in adult - Comprehensive metabolic panel - CBC - Encouraged a healthy diet and exercise as tolerated. 8. Cigarette nicotine dependence without complication - Comprehensive metabolic panel - CBC - Encouraged smoking cessation. 9. Essential hypertension - Comprehensive metabolic panel - CBC - Stable with Metoprolol. Will continue current treatment plan. 10. Hyperlipidemia LDL goal <70 - Lipid panel - Comprehensive metabolic panel - CBC - Stable with Rosuvastatin. Will continue current treatment plan. 11. Necrotizing fasciitis (HCC) - POCT Urinalysis dipstick - Urine culture (clean catch) - Stable. Follow up with specialist as directed. 12. Pressure injury of deep tissue of buttock, unspecified laterality - Stable. Follow up with specialist as directed. 13. Screening for prostate cancer - PSA Total (Screening) - Will notify of blood work results. 14. Influenza vaccine refused Discussed use, benefit, and side effects of prescribed medications. Barriers to medication compliance addressed. All patient questions answered. Pt voiced understanding. Follow up in about 4 weeks (around 10/20/2024) for follow up on diabetes management. Outpatient Encounter Medications as of 09/22/2024 Medication Sig Dispense Refill Alcohol Swabs (B-D SINGLE USE SWABS REGULAR) pads use three times a day as directed 120 each 2 B-D UF III MINI PEN NEEDLES 31G X 5 MM misc Inject 100 each under the skin daily. As directed 100 each 2 Eliquis 5 MG tablet Take 5 mg by mouth 2 times daily. glimepiride (Amaryl) 4 MG tablet Take 2 tablets (8 mg) by mouth every morning (before breakfast). 180 tablet 1 glucose blood (True Metrix Blood Glucose Test) test strip use 1 TEST STRIP to TEST BLOOD SUGAR twice a day 100 strip 1 metoprolol succinate XL (Toprol-XL) 100 MG 24 hr tablet Take 100 mg by mouth daily. omeprazole (PriLOSEC) [address] capsule take 1 capsule by mouth every morning and 1 every evening before meals 60 capsule 2 polyethylene glycol, PEG, 3350 (Miralax) 17 g packet Take 17 g by mouth daily. (Patient taking differently: Take 17 g by mouth as needed.) 30 packet 2 rosuvastatin (Crestor) 10 MG tablet take 1 tablet by mouth once daily 14 tablet 0 triamterene-hydrochlorothiazide (Maxzide-25) 37.5-25 MG tablet Take 1 tablet by mouth daily. [DISCONTINUED] gabapentin (Neurontin) 100 MG capsule Take 100 mg by mouth Nightly. [DISCONTINUED] Lantus SoloStar 100 UNIT/ML pen inject 14 units subcutaneously every morning and 14 units every evening (Patient taking differently: as needed. inject 14 units subcutaneously every morning and 14 units every evening) 3 mL 1 Continuous Glucose Head Rigger (FreeStyle Yanni 3 [place]) device Use as directed 1 each 0 Continuous Glucose Sensor (FreeStyle Yanni 3 Sensor) misc every 14 (fourteen) days. 2 each 5 gabapentin (Neurontin) 300 MG capsule Take 1 capsule (300 mg) by mouth Nightly. 30 capsule 0 Lantus SoloStar 100 UNIT/ML pen inject 14 units subcutaneously every morning [DISCONTINUED] empagliflozin (Jardiance) 10 MG Take 1 tablet (10 mg) by mouth daily. (Patient not taking: Reported on 09/22/2024) 30 tablet 2 [DISCONTINUED] lisinopril 20 MG tablet TAKE 1 TABLET BY MOUTH EVERY DAY 30 tablet 0 [DISCONTINUED] lisinopril 20 MG tablet TAKE 1 TABLET BY MOUTH EVERY DAY (Patient not taking: Reported on 09/22/2024) 30 tablet 0 No facility-administered encounter medications on file as of 09/22/2024. MOIRA Peralta CNP 09/22/2024 2:45 PM * Viki Velasquez MA - 09/22/2024 1:40 PM EST Patient verified by last name and . documented in this [facility]11-04-2024 Instructions* Patient Instructions* MOIRA Peralta CNP - 09/22/2024 1:40 PM EST Please obtain echocardiogram result from [place]. documented in this [facility]10-24-2024 Telephone encounter Note* Telephone Encounter - MOIRA Samuels CNP - 09/11/2024 7:41 AM EDT Reviewed chart. Refill appropriate. RX sent. [id number] Miscellaneous Notes* Telephone Encounter - MOIRA Samuels CNP - 09/11/2024 7:41 AM EDT Reviewed chart. Refill appropriate. RX sent. * Telephone Encounter - Miguelina Ashford MA - 09/11/2024 7:10 AM EDT Prescription Request: Last medication check: 04/05/23 Last physical exam: none Next scheduled appointment: 09/22/24 Last date of refill on this medication 08/11/24 30 and no refill documented in this [facility]10-24-2024 Telephone encounter Note* Telephone Encounter - Miguelina Ashford MA - 09/11/2024 7:10 AM EDT Prescription Request: Last medication check: 04/05/23 Last physical exam: none Next scheduled appointment: 09/22/24 Last date of refill on this medication 08/11/24 30 and [facility] refill [id number]* Telephone Encounter - MOIRA Samuels CNP - 08/11/2024 10:01 AM EDT Refill sent for #30 NEEDS to come in for appt that is scheduled in 08/2024. [id number] Miscellaneous Notes* Telephone Encounter - MOIRA Samuels CNP - 08/11/2024 10:01 AM EDT Refill sent for #30 NEEDS to come in for appt that is scheduled in 08/2024. * Telephone Encounter - Miguelina Ashford MA - 08/11/2024 9:37 AM EDT Prescription Request: Last medication check: 04/05/23 Last physical exam: 2020 Next scheduled appointment: 08/27/24 Last date of refill on this medication 02/05/24 [id number]* Telephone Encounter - Miguelina Ashford MA - 08/11/2024 9:37 AM EDT Prescription Request: Last medication check: 04/05/23 Last physical exam: 2020 Next scheduled appointment: 08/27/24 Last date of refill on this medication 02/05/24 [id number] Note Discharge Instructions Thank you for allowing [facility] to assist you with your healthcare needs. The following is importantdischarge information regarding your hospital visit. Your Care Team PHOEBE ADAM APRN-PRODUCT ENGINEER Your Diagnosis Choledocholithiasis Dilation of common bile duct What to do next Instructions From Your Doctor You came to the hospital with blood loss this was felt to be secondary to your groin wound you did need 2 units of blood transfusion. You were also septic in the emergency department we began broad-spectrum IV antibiotics cultures remain negative we will transition to oral antibiotics cefdinir and Zyvox. You can follow-up with the infectious disease and surgical team as an outpatient. Unfortunately the fluid collection was not large enough to drain with a needle but was tunneling to the wound VAC so this will drain. You did have significantly elevated alkaline phosphatase this had been elevated in April as well. I was concerned about blockage in your liver and gallbladder drain system. We performed an MRI showingconcern for sludge and stone. We discussed and recommended in the hospital scope procedure to resolve this. However after discussions of risks of not doing this procedure you want to perform this outpatient rather than inpatient. The risks do include worsening liver function, infection, or in worst-case loss of life. Will have you follow-up with the ERCP team gastroenterology as an outpatient for procedure scheduling. In the meantime continue your anticoagulation with Eliquis until procedure scheduled. Scheduled Follow-Up Appointments Appointment Type When With Where Contact Information StatusSurgery 07/01/2024 02:00 PM EDT Confirmed URO OV 07/22/2024 11:00 AM EDT SAMRA BURROWS APRN-QUAHOGGER [facility] Confirmed Follow Up Appointments Follow Up with BIENVENIDO FAIRCHILD DO, Surgery Where:[address] [facility] [address] [facility] [place] [address]- [phone] Additional Information: Call for appointment Follow Up with PHOEBE ADAM APRN-PRODUCT ENGINEER Where:[address] [place] [address]- Additional Information: call for apt Follow Up with SON STEEL BA, MD, Infectious Disease, Infectious Disease Group Where:[facility] [id number] [place] [address]- [phone] Additional Information: call for apt Follow Up with JOSE LAYTON MD Where:[address] [facility], [place] [address]- [phone] Additional Information: call for apt, to schedule ERCP (scope procedure) Follow Up with rios Orr [phone] The Following Activity and Diet Have Been Ordered for You Transfer of Care Activity - Ordered -- Activity As Tolerated, 06/29/24 14:51:00 EDT Transfer of Care Diet - Ordered -- Type of Diet: Regular Diet, Calories Permitted: 1800 kcal, 06/29/24 14:51:00 EDT The Following Equipment Has Been Ordered for You No qualifying data available. The Following Treatments Have Been Ordered for You Discharge Labs No qualifying data available. Discharge Radiology No qualifying data available. Other Therapies No qualifying data available. Post Acute Orders Transfer of Care Admission Level of Care - Ordered -- Level of Care SNF, 06/30/24 17:19:38 EDT Transfer of Care Code Status - Ordered -- Full Code, Constant Order Transfer of Care Communication Order - Ordered -- Expect less than 30 day stay., 06/29/24 14:51:35 EDT Transfer of Care Orders Electronically Signed By - Ordered -- 06/29/24 14:51:00 EDT, CARMELO LUNDBERG MD Transfer of Care Prognosis - Ordered -- Fair, Patient Aware: Yes Transfer of Care Rehab Potential - Ordered -- Rehab potential fair, 06/29/24 14:51:35 EDT Someone Will Contact You Regarding These Home Health Referrals No home referrals have been ordered for you. No one will call you. Allergies ampicillin Unknown penicillin Unknown Medications Please ask your primary doctor or pharmacist before taking any other medication not listed, including over the counter drugs, herbal medications, vitamins and or supplements as they may interact withyour home medications. What How Much When Instructions Last Dose New cefdinir (cefdinir 300 mg oral capsule) 1 cap by mouth Every 12 hours Duration: 14 Days Pickup at [email or web address] #[id number] New linezolid (Zyvox 600 mg oral tablet) 1 tab(s) by mouth Two (2) times a day Duration: 14 Days Pickup at [facility] #[id number] Changed insulin glargine (Lantus 100 units/ mL10 ml vial solution) 15 unit(s) Subcutaneous (INT) Daily at bedtime Unchanged apixaban (Eliquis 5 mg oral tablet) 1 tab(s) by mouth Two (2) times a day Duration: 30 Days Unchanged bacitracin topical (bacitracin topical ointment) 1 application Topical Two (2) times a day Unchanged bumetanide (bumetanide 1 mg oral tablet) 1 tab(s) by mouth Two (2) times a day Duration: 30 Days Start on Unchanged emollients, topical 1 application Topical Two (2) times a day Unchanged gabapentin (gabapentin 100 mg oral capsule) 3 cap by mouth Once a day Unchanged glimepiride (glimepiride 4 mg oral tablet) 2 tab(s) by mouth With breakfast Unchanged insulin lispro (HumaLOG) (HumaLOG 100 units/ mL subcutaneous solution) Give 0-10 units/dose Subcutaneous Three (3) times a day before meals Unchanged lidocaine topical (lidocaine 4% patch) Transdermal Every 24 hours Unchanged metoprolol (Toprol-XL 100 mg oral tablet, extended release) 1 tab(s) by mouth Two (2) times a day Duration: 30 Days Unchanged omeprazole (omeprazole 40 mg oral delayed release capsule) 1 cap by mouth Two (2) times a day Unchanged rosuvastatin (rosuvastatin 10 mg oral tablet) 1 tab(s) Once a day AM Unchanged sodium hypochlorite topical (Dakins Half Strength 0.25% topical solution) 1 application Topical Two (2) times a day Pharmacy Information [id number]: [address], [place] [phone] Please take this list to your next doctor s visit. Bring all medications you take, including over the counter medications, herbals and other supplements with you to your doctor s visit. Patients and families are reminded to discard old lists and to update any records with all medication providers or retail pharmacies. Education Materials Sepsis, Diagnosis, Adult Sepsis is a serious bodily reaction to an infection. The infection that triggers sepsis may be froma bacteria, virus, or fungus. Sepsis can result from an infection in any part of your body. Infections that commonly lead to sepsis include skin, lung, and urinary tract infections. Sepsis is a medical emergency that must be treated right away in a hospital. In severe cases, it can lead to septic shock. Septic shock can weaken your heart and cause your blood pressure to drop. This can cause your central nervous system and your body's organs to stop working. What are the causes? This condition is caused by a severe reaction to infections from bacteria, viruses, or fungus. The germs that most often lead to sepsis include: Escherichia coli (E. coli) bacteria. Staphylococcus aureus (staph) bacteria. Some types of Streptococcus bacteria. The most common infections affect these organs: The lung (pneumonia). The kidneys or bladder (urinary tract infection). The skin (cellulitis). The bowel, gallbladder, or pancreas. What increases the risk? You are more likely to develop this condition if: Your body's disease-fighting system (immune system) is weakened. You are age 65 or older. You are male. You had surgery or you have been hospitalized. You have these devices inserted into your body: ? A small, thin tube (catheter). ? IV line. ? Breathing tube. ? Drainage tube. You are not getting enough nutrients from food (malnourished). You have a long-term (chronic) disease, such as cancer, lung disease, kidney disease, or diabetes. You are . What are the signs or symptoms? Symptoms of this condition may include: Fever. Chills or feeling very cold. Confusion or anxiety. Fatigue. Muscle aches. Shortness of breath. Nausea and vomiting. Urinating much less than usual. Fast heart rate (tachycardia). Rapid breathing (hyperventilation). Changes in skin color. Your skin may look blotchy, pale, or blue. Cool, clammy, or sweaty skin. Skin rash. Other symptoms depend on the source of your infection. How is this diagnosed? This condition is diagnosed based on: Your symptoms. Your medical history. A physical exam. Other tests may also be done to find out the cause of the infection and how severe the sepsis is. These tests may include: Blood tests. Urine tests. Swabs from other areas of your body that may have an infection. These samples may be tested (cultured) to find out what type of bacteria is causing the infection. Chest X-ray to check for pneumonia. Other imaging tests, such as a CT scan, may also be done. Lumbar puncture. This removes a small amount of the fluid that surrounds your brain and spinal cord. The fluid is then examined for infection. How is this treated? This condition must be treated in a hospital. Based on the cause of your infection, you may be given an antibiotic, antiviral, or antifungal medicine. You may also receive: Fluids through an IV. Oxygen and breathing assistance. Medicines to increase your blood pressure. Kidney dialysis. This process cleans your blood if your kidneys have failed. Surgery to remove infected tissue. Blood transfusion if needed. Medicine to prevent blood clots. Nutrients to correct imbalances in basic body function (metabolism). You may: ? Receive important salts and minerals (electrolytes) through an IV. ? Have your blood sugar level adjusted. Follow these instructions at home: Medicines Take gtsp-aqf-ovvkvfw and prescription medicines only as told by your health care provider. If you were prescribed an antibiotic, antiviral, or antifungal medicine, take it as told by your health care provider. Do not stop taking the medicine even if you start to feel better. General instructions If you have a catheter or other indwelling device, ask to have it removed as soon as possible. Keep all follow-up visits as told by your health care provider. This is important. Contact a health care provider if: You do not feel like you are getting better or regaining strength. You are having trouble coping with your recovery. You frequently feel tired. You feel worse or do not seem to get better after surgery. You think you may have an infection after surgery. Get help right away if: You have any symptoms of sepsis. You have difficulty breathing. You have a rapid or skipping heartbeat. You become confused or disoriented. You have a high fever. Your skin becomes blotchy, pale, or blue. You have an infection that is getting worse or not getting better. These symptoms may represent a serious problem that is an emergency. Do not wait to see if the symptoms will go away. Get medical help right away. Call your local emergency services (911 in the [place] Do not drive yourself to the hospital. Summary Sepsis is a medical emergency that requires immediate treatment in a hospital. This condition is caused by a severe reaction to infections from bacteria, viruses, or fungus. Based on the cause of your infection, you may be given an antibiotic, antiviral, or antifungal medicine. Treatment may also include IV fluids, breathing assistance, and kidney dialysis. This information is not intended to replace advice given to you by your health care provider. Make sure you discuss any questions you have with your health care provider. Document Released: 08/03/2004 Document Revised: 06/13/2019 Document Reviewed: 06/13/2019 [employer] Patient Education 2020 [employer] Additional Information VACCINATE! IT SAVES LIVES! Members of the community who have not yet received the COVID-19 vaccine and would like to receive it can visit one of [facility] vaccine clinics. There are many vaccine clinic locations within the [facility]. For locations and available times, please visit https://gettheshot.coronavirus.[place].gov/. It is important to note that some COVID mobile vaccine clinics are held outdoors and may be canceled in rainy or stormy conditions. To learn more about pediatric vaccinations (ages 5-11), we invite you to visit the [facility] webpage. [email or web address]/[email or web address]-[email or web address] stions.htmlTo learn more about the COVID-19 vaccine, we invite you to visit the CDC website for a list of frequently asked questions.https://www.cdc.gov/coronavirus/2019-ncov/vaccines/faq.html [facility] Patient Portal Access Instructions: Stay connected with your healthcare team and access your personal medical information anytime with the [employer] Patient Portal. Please follow the directions below to create your [employer] account: 1.Access the email account you provided upon registration to the hospital/physician office.2.Look for an invitation email from [facility].3.Open the email and access the invitation link: AcceptInvitation to [employer].4.Fill in the required nguyen to create your account. To access your account, visit [employer]. Click the blue button labeled Access Patient Portal and then log in with the username and password that you created in the steps above. You will be able to view your test results, lab results, a summary of your visits, upcoming appointments and more. There is also a convenient messaging option where you can send secure messages to your p [employer]ider. In addition, you will have the ability to download any documents or summaries to your computer and/or send the information securely to a physician. Remember that your healthcare information is confidential, so carefully consider who you will allowto register on the [facility] Patient Portal for access to your information. You can also access the [facility] Patient Portal on the [employer]boWOWwhere artemio. Simply click on Patient Portal and then log into your account. If you would like to receive a full copy of your medical records, please contact the [facility] Medical Records Department by calling [phone], Sunday through Sunday between 8 a.m. and 4:30 p.m. HOW TO SAFELY DISPOSE OF PRESCRIPTION MEDICATIONS Please use one of the following methods to safely dispose of your unused medications. 1.Use a drug disposal kit: the drug disposal pouch allows you to safely discard your old and unuseddrugs. Ask your nurse to give you one when you are discharged.2.Visit a local take-back location: Many local pharmacies and police departments have programs that collect old and unwanted prescriptiondrugs. Call your local pharmacy or go to http://[place] PERL.[employer]/5K4Cm1l to find one close to you.3.Make use of household items: Use cat litter or old coffee grounds to dispose medications if other options arenot available. Mix your drugs with these household products, seal them in an airtight container andthrow it into the garbage. Call [facility]: [phone] to be sure your drugs can be disposed of in this way. Some medicines may require a different approach.4.Never flush your medications down the toilet. IF YOU HAVE BEEN PRESCRIBED AN OPIOID FOR PAIN If you have been prescribed an opioid (such as hydrocodone, oxycodone or morphine), it is critical to understand the possible side effects and risks of opioid pain medications. Even when taken as directed, opioids can have several side effects including: Tolerance, meaning you might need to take more of a medication for the same pain relief. Nausea, vomiting and/or constipation. Sleepiness, dizziness, dry mouth, confusion, depression or itching. Physical dependence, meaning you have withdrawal symptoms when a medication is stopped, can develop within a few days. KNOW YOUR RESPONSIBILITIES It is important to know exactly how much and how often to take the opioid pain medications you are prescribed. Never take opioids in higher amounts or more often than prescribed. Do not combine opioids with alcohol or other drugs that cause drowsiness, such as benzodiazepines, also known as benzos, including diazepam and alprazolam, muscle relaxants or sleep aids. Never sell or share prescription opioids. This is illegal. Store opioids in a secure place and out of reach of others (including children, family, friends and visitors). The last page of this document has been signed and retained as a CHART COPY. Signatures Patient Education Materials Sepsis, Diagnosis, Adult Medication Leaflets My discharge plan and instructions have been reviewed and explained to me and I,GURINDER HAHN understand my current condition and have read and understand these discharge instructions. I have received a written copy of the plan/instructions. If I have questions, I am aware that I should contact my doctor. Patient/Care Management Associate Signature: Date/Time: Relationship to Patient: Witness Name/Signature: Date/Time[id number] Hospital Discharge instructions Patient Education 06/30/2024 14:39:45 Sepsis, Diagnosis, Adult Sepsis, Diagnosis, Adult Sepsis is a serious bodily reaction to an infection. The infection that triggers sepsis may be froma bacteria, virus, or fungus. Sepsis can result from an infection in any part of your body. Infections that commonly lead to sepsis include skin, lung, and urinary tract infections. Sepsis is a medical emergency that must be treated right away in a hospital. In severe cases, it can lead to septic shock. Septic shock can weaken your heart and cause your blood pressure to drop. This can cause your central nervous system and your body's organs to stop working. What are the causes? This condition is caused by a severe reaction to infections from bacteria, viruses, or fungus. The germs that most often lead to sepsis include: Escherichia coli (E. coli) bacteria. Staphylococcus aureus (staph) bacteria. Some types of Streptococcus bacteria. The most common infections affect these organs: The lung (pneumonia). The kidneys or bladder (urinary tract infection). The skin (cellulitis). The bowel, gallbladder, or pancreas. What increases the risk? You are more likely to develop this condition if: Your body's disease-fighting system (immune system) is weakened. You are age 65 or older. You are male. You had surgery or you have been hospitalized. You have these devices inserted into your body: ?A small, thin tube (catheter). ?IV line. ?Breathing tube. ?Drainage tube. You are not getting enough nutrients from food (malnourished). You have a long-term (chronic) disease, such as cancer, lung disease, kidney disease, or diabetes. You are . What are the signs or symptoms? Symptoms of this condition may include: Fever. Chills or feeling very cold. Confusion or anxiety. Fatigue. Muscle aches. Shortness of breath. Nausea and vomiting. Urinating much less than usual. Fast heart rate (tachycardia). Rapid breathing (hyperventilation). Changes in skin color. Your skin may look blotchy, pale, or blue. Cool, clammy, or sweaty skin. Skin rash. Other symptoms depend on the source of your infection. How is this diagnosed? This condition is diagnosed based on: Your symptoms. Your medical history. A physical exam. Other tests may also be done to find out the cause of the infection and how severe the sepsis is. These tests may include: Blood tests. Urine tests. Swabs from other areas of your body that may have an infection. These samples may be tested (cultured) to find out what type of bacteria is causing the infection. Chest X-ray to check for pneumonia. Other imaging tests, such as a CT scan, may also be done. Lumbar puncture. This removes a small amount of the fluid that surrounds your brain and spinal cord. The fluid is then examined for infection. How is this treated? This condition must be treated in a hospital. Based on the cause of your infection, you may be given an antibiotic, antiviral, or antifungal medicine. You may also receive: Fluids through an IV. Oxygen and breathing assistance. Medicines to increase your blood pressure. Kidney dialysis. This process cleans your blood if your kidneys have failed. Surgery to remove infected tissue. Blood transfusion if needed. Medicine to prevent blood clots. Nutrients to correct imbalances in basic body function (metabolism). You may: ?Receive important salts and minerals (electrolytes) through an IV. ?Have your blood sugar level adjusted. Follow these instructions at home: Medicines Take xqwn-cim-nwtnbve and prescription medicines only as told by your health care provider. If you were prescribed an antibiotic, antiviral, or antifungal medicine, take it as told by your health care provider. Do not stop taking the medicine even if you start to feel better. General instructions If you have a catheter or other indwelling device, ask to have it removed as soon as possible. Keep all follow-up visits as told by your health care provider. This is important. Contact a health care provider if: You do not feel like you are getting better or regaining strength. You are having trouble coping with your recovery. You frequently feel tired. You feel worse or do not seem to get better after surgery. You think you may have an infection after surgery. Get help right away if: You have any symptoms of sepsis. You have difficulty breathing. You have a rapid or skipping heartbeat. You become confused or disoriented. You have a high fever. Your skin becomes blotchy, pale, or blue. You have an infection that is getting worse or not getting better. These symptoms may represent a serious problem that is an emergency. Do not wait to see if the symptoms will go away. Get medical help right away. Call your local emergency services (911 in the [place] Do not drive yourself to the hospital. Summary Sepsis is a medical emergency that requires immediate treatment in a hospital. This condition is caused by a severe reaction to infections from bacteria, viruses, or fungus. Based on the cause of your infection, you may be given an antibiotic, antiviral, or antifungal medicine. Treatment may also include IV fluids, breathing assistance, and kidney dialysis. This information is not intended to replace advice given to you by your health care provider. Make sure you discuss any questions you have with your health care provider. Document Released: 08/03/2004 Document Revised: 06/13/2019 Document Reviewed: 06/13/2019 [employer] Patient Education 2020 [employer]. Follow Up Care 06/18/2024 12:13:04 With:BIENVENIDO FAIRCHILD DO, Surgery Address: [address] [place] [address]- [phone] When: Unknown Comments:Call for appointment With:PHOEBE ADAM APRN-PRODUCT ENGINEER Address: [address] [place] [address]- When: Unknown Comments:call for apt With:SON STEEL BA, MD, Infectious Disease, Infectious Disease Group Address: [facility] [address] [place] [phone] When: Unknown Comments:call for apt With:JOSE LAYTON MD Address: [address] [facility] [place] [phone] When: Unknown Comments:call for apt, to schedule ERCP (scope procedure) With:Kalpeshrios George [phone] Address: When: Unknown [facility] 08-12-2024 Note Discharge Instructions Thank you for allowing [facility] to assist you with your healthcare needs. The following is importantdischarge information regarding your hospital visit. Your Care Team PHOEBE ADAM APRN-PRODUCT ENGINEER Your Diagnosis Choledocholithiasis Dilation of common bile duct What to do next Instructions From Your Doctor You came to the hospital with blood loss this was felt to be secondary to your groin wound you did need 2 units of blood transfusion. You were also septic in the emergency department we began broad-spectrum IV antibiotics cultures remain negative we will transition to oral antibiotics cefdinir and Zyvox. You can follow-up with the infectious disease and surgical team as an outpatient. Unfortunately the fluid collection was not large enough to drain with a needle but was tunneling to the wound VAC so this will drain. You did have significantly elevated alkaline phosphatase this had been elevated in April as well. I was concerned about blockage in your liver and gallbladder drain system. We performed an MRI showingconcern for sludge and stone. We discussed and recommended in the hospital scope procedure to resolve this. However after discussions of risks of not doing this procedure you want to perform this outpatient rather than inpatient. The risks do include worsening liver function, infection, or in worst-case loss of life. Will have you follow-up with the ERCP team gastroenterology as an outpatient for procedure scheduling. In the meantime continue your anticoagulation with Eliquis until procedure scheduled. Scheduled Follow-Up Appointments Appointment Type When With Where Contact Information StatusSurgery 07/01/2024 02:00 PM EDT Radha OR [phone] Confirmed URO OV 07/22/2024 11:00 AM SAMRA BLAS APRN-OLI [facility] Confirmed Follow Up Appointments Follow Up with BIENVENIDO FAIRCHILD DO, Surgery Where:[address] [facility] [address] [facility] [place] [address]- [phone] Additional Information: Call for appointment Follow Up with PHOEBE ADAM APRN-PRODUCT ENGINEER Where:[address] [place] [address]- Additional Information: call for apt Follow Up with SON STEEL BA, MD, Infectious Disease, Infectious Disease Group Where:[facility] [address] [place] [address]- [phone] Additional Information: call for apt Follow Up with JOSE LAYTON MD Where:[address] [facility], [place] [phone] Additional Information: call for apt, to schedule ERCP (scope procedure) Follow Up with rios Orr [phone] The Following Activity and Diet Have Been Ordered for You Transfer of Care Activity - Ordered -- Activity As Tolerated, 06/29/24 14:51:00 EDT Transfer of Care Diet - Ordered -- Type of Diet: Regular Diet, Calories Permitted: 1800 kcal, 06/29/24 14:51:00 EDT The Following Equipment Has Been Ordered for You No qualifying data available. The Following Treatments Have Been Ordered for You Discharge Labs No qualifying data available. Discharge Radiology No qualifying data available. Other Therapies No qualifying data available. Post Acute Orders Transfer of Care Code Status - Ordered -- Full Code, Constant Order Transfer of Care Communication Order - Ordered -- Expect less than 30 day stay., 06/29/24 14:51:35 EDT Transfer of Care Orders Electronically Signed By - Ordered -- 06/29/24 14:51:00 EDT, CARMELO LUNDBERG MD Transfer of Care Prognosis - Ordered -- Fair, Patient Aware: Yes Transfer of Care Rehab Potential - Ordered -- Rehab potential fair, 06/29/24 14:51:35 EDT Someone Will Contact You Regarding These Home Health Referrals No home referrals have been ordered for you. No one will call you. Allergies ampicillin Unknown penicillin Unknown Medications Please ask your primary doctor or pharmacist before taking any other medication not listed, including over the counter drugs, herbal medications, vitamins and or supplements as they may interact withyour home medications. What How Much When Instructions Last Dose New cefdinir (cefdinir 300 mg oral capsule) 1 cap by mouth Every 12 hours Duration: 14 Days Pickup at [facility][id number] New linezolid (Zyvox 600 mg oral tablet) 1 tab(s) by mouth Two (2) times a day Duration: 14 Days Pickup at [facility] #[id number] Changed insulin glargine (Lantus 100 units/ mL10 ml vial solution) 15 unit(s) Subcutaneous (INT) Daily at bedtime Unchanged apixaban (Eliquis 5 mg oral tablet) 1 tab(s) by mouth Two (2) times a day Duration: 30 Days Unchanged bacitracin topical (bacitracin topical ointment) 1 application Topical Two (2) times a day Unchanged bumetanide (bumetanide 1 mg oral tablet) 1 tab(s) by mouth Two (2) times a day Duration: 30 Days Start on Unchanged emollients, topical 1 application Topical Two (2) times a day Unchanged gabapentin (gabapentin 100 mg oral capsule) 3 cap by mouth Once a day Unchanged glimepiride (glimepiride 4 mg oral tablet) 2 tab(s) by mouth With breakfast Unchanged insulin lispro (HumaLOG) (HumaLOG 100 units/ mL subcutaneous solution) Give 0-10 units/dose Subcutaneous Three (3) times a day before meals Unchanged lidocaine topical (lidocaine 4% patch) Transdermal Every 24 hours Unchanged metoprolol (Toprol-XL 100 mg oral tablet, extended release) 1 tab(s) by mouth Two (2) times a day Duration: 30 Days Unchanged omeprazole (omeprazole 40 mg oral delayed release capsule) 1 cap by mouth Two (2) times a day Unchanged rosuvastatin (rosuvastatin 10 mg oral tablet) 1 tab(s) Once a day AM Unchanged sodium hypochlorite topical (Dakins Half Strength 0.25% topical solution) 1 application Topical Two (2) times a day Pharmacy Information [facility] #[id number]: [address], [place] [id number] [phone] Please take this list to your next doctor s visit. Bring all medications you take, including over the counter medications, herbals and other supplements with you to your doctor s visit. Patients and families are reminded to discard old lists and to update any records with all medication providers or retail pharmacies. Education Materials Sepsis, Diagnosis, Adult Sepsis is a serious bodily reaction to an infection. The infection that triggers sepsis may be froma bacteria, virus, or fungus. Sepsis can result from an infection in any part of your body. Infections that commonly lead to sepsis include skin, lung, and urinary tract infections. Sepsis is a medical emergency that must be treated right away in a hospital. In severe cases, it can lead to septic shock. Septic shock can weaken your heart and cause your blood pressure to drop. This can cause your central nervous system and your body's organs to stop working. What are the causes? This condition is caused by a severe reaction to infections from bacteria, viruses, or fungus. The germs that most often lead to sepsis include: Escherichia coli (E. coli) bacteria. Staphylococcus aureus (staph) bacteria. Some types of Streptococcus bacteria. The most common infections affect these organs: The lung (pneumonia). The kidneys or bladder (urinary tract infection). The skin (cellulitis). The bowel, gallbladder, or pancreas. What increases the risk? You are more likely to develop this condition if: Your body's disease-fighting system (immune system) is weakened. You are age 65 or older. You are male. You had surgery or you have been hospitalized. You have these devices inserted into your body: ? A small, thin tube (catheter). ? IV line. ? Breathing tube. ? Drainage tube. You are not getting enough nutrients from food (malnourished). You have a long-term (chronic) disease, such as cancer, lung disease, kidney disease, or diabetes. You are . What are the signs or symptoms? Symptoms of this condition may include: Fever. Chills or feeling very cold. Confusion or anxiety. Fatigue. Muscle aches. Shortness of breath. Nausea and vomiting. Urinating much less than usual. Fast heart rate (tachycardia). Rapid breathing (hyperventilation). Changes in skin color. Your skin may look blotchy, pale, or blue. Cool, clammy, or sweaty skin. Skin rash. Other symptoms depend on the source of your infection. How is this diagnosed? This condition is diagnosed based on: Your symptoms. Your medical history. A physical exam. Other tests may also be done to find out the cause of the infection and how severe the sepsis is. These tests may include: Blood tests. Urine tests. Swabs from other areas of your body that may have an infection. These samples may be tested (cultured) to find out what type of bacteria is causing the infection. Chest X-ray to check for pneumonia. Other imaging tests, such as a CT scan, may also be done. Lumbar puncture. This removes a small amount of the fluid that surrounds your brain and spinal cord. The fluid is then examined for infection. How is this treated? This condition must be treated in a hospital. Based on the cause of your infection, you may be given an antibiotic, antiviral, or antifungal medicine. You may also receive: Fluids through an IV. Oxygen and breathing assistance. Medicines to increase your blood pressure. Kidney dialysis. This process cleans your blood if your kidneys have failed. Surgery to remove infected tissue. Blood transfusion if needed. Medicine to prevent blood clots. Nutrients to correct imbalances in basic body function (metabolism). You may: ? Receive important salts and minerals (electrolytes) through an IV. ? Have your blood sugar level adjusted. Follow these instructions at home: Medicines Take nudv-jxy-atsnwjy and prescription medicines only as told by your health care provider. If you were prescribed an antibiotic, antiviral, or antifungal medicine, take it as told by your health care provider. Do not stop taking the medicine even if you start to feel better. General instructions If you have a catheter or other indwelling device, ask to have it removed as soon as possible. Keep all follow-up visits as told by your health care provider. This is important. Contact a health care provider if: You do not feel like you are getting better or regaining strength. You are having trouble coping with your recovery. You frequently feel tired. You feel worse or do not seem to get better after surgery. You think you may have an infection after surgery. Get help right away if: You have any symptoms of sepsis. You have difficulty breathing. You have a rapid or skipping heartbeat. You become confused or disoriented. You have a high fever. Your skin becomes blotchy, pale, or blue. You have an infection that is getting worse or not getting better. These symptoms may represent a serious problem that is an emergency. Do not wait to see if the symptoms will go away. Get medical help right away. Call your local emergency services (911 in the [place] Do not drive yourself to the hospital. Summary Sepsis is a medical emergency that requires immediate treatment in a hospital. This condition is caused by a severe reaction to infections from bacteria, viruses, or fungus. Based on the cause of your infection, you may be given an antibiotic, antiviral, or antifungal medicine. Treatment may also include IV fluids, breathing assistance, and kidney dialysis. This information is not intended to replace advice given to you by your health care provider. Make sure you discuss any questions you have with your health care provider. Document Released: 08/03/2004 Document Revised: 06/13/2019 Document Reviewed: 06/13/2019 [employer] Patient Education 2020 [employer]. Additional Information VACCINATE! IT SAVES LIVES! Members of the community who have not yet received the COVID-19 vaccine and would like to receive it can visit one of [facility] vaccine clinics. There are many vaccine clinic locations within the [facility]. For locations and available times, please visit https://gettheshot.coronavirus.[place].gov/. It is important to note that some COVID mobile vaccine clinics are held outdoors and may be canceled in rainy or stormy conditions. To learn more about pediatric vaccinations (ages 5-11), we invite you to visit the [facility] webpage. https://[email or web address].org/pages/[email or web address]-Fcujd-Zkv stions.htmlTo learn more about the COVID-19 vaccine, we invite you to visit the CDC website for a list of frequently asked questions.https://www.cdc.gov/coronavirus/2019-ncov/vaccines/faq.html [employer] Patient Portal Access Instructions: Stay connected with your healthcare team and access your personal medical information anytime with the [facility] Patient Portal. Please follow the directions below to create your [employer] account: 1.Access the email account you provided upon registration to the hospital/physician office.2.Look for an invitation email from [facility].3.Open the email and access the invitation link: AcceptInvitation to [employer].4.Fill in the required nguyen to create your account. To access your account, visit [employer]. Click the blue button labeled Access Patient Portal and then log in with the username and password that you created in the steps above. You will be able to view your test results, lab results, a summary of your visits, upcoming appointments and more. There is also a convenient messaging option where you can send secure messages to your p goranvider. In addition, you will have the ability to download any documents or summaries to your computer and/or send the information securely to a physician. Remember that your healthcare information is confidential, so carefully consider who you will allowto register on the [facility] Patient Portal for access to your information. You can also access the [facility] on the [facility] artemio. Simply click on Patient Portal and then log into your account. If you would like to receive a full copy of your medical records, please contact the [facility] Medical Records Department by calling [phone], Sunday through Sunday between 8 a.m. and 4:30 p.m. HOW TO SAFELY DISPOSE OF PRESCRIPTION MEDICATIONS Please use one of the following methods to safely dispose of your unused medications. 1.Use a drug disposal kit: the drug disposal pouch allows you to safely discard your old and unuseddrugs. Ask your nurse to give you one when you are discharged.2.Visit a local take-back location: Many local pharmacies and police departments have programs that collect old and unwanted prescriptiondrugs. Call your local pharmacy or go to http://[place] PERL.[employer]/1J2Jw9z to find one close to you.3.Make use of household items: Use cat litter or old coffee grounds to dispose medications if other options arenot available. Mix your drugs with these household products, seal them in an airtight container andthrow it into the garbage. Call [facility]: [phone] to be sure your drugs can be disposed of in this way. Some medicines may require a different approach.4.Never flush your medications down the toilet. IF YOU HAVE BEEN PRESCRIBED AN OPIOID FOR PAIN If you have been prescribed an opioid (such as hydrocodone, oxycodone or morphine), it is critical to understand the possible side effects and risks of opioid pain medications. Even when taken as directed, opioids can have several side effects including: Tolerance, meaning you might need to take more of a medication for the same pain relief. Nausea, vomiting and/or constipation. Sleepiness, dizziness, dry mouth, confusion, depression or itching. Physical dependence, meaning you have withdrawal symptoms when a medication is stopped, can develop within a few days. KNOW YOUR RESPONSIBILITIES It is important to know exactly how much and how often to take the opioid pain medications you are prescribed. Never take opioids in higher amounts or more often than prescribed. Do not combine opioids with alcohol or other drugs that cause drowsiness, such as benzodiazepines, also known as benzos, including diazepam and alprazolam, muscle relaxants or sleep aids. Never sell or share prescription opioids. This is illegal. Store opioids in a secure place and out of reach of others (including children, family, friends and visitors). The last page of this document has been signed and retained as a CHART COPY. Signatures Patient Education Materials Sepsis, Diagnosis, Adult Medication Leaflets My discharge plan and instructions have been reviewed and explained to me and I,GURINDER HAHN understand my current condition and have read and understand these discharge instructions. I have received a written copy of the plan/instructions. If I have questions, I am aware that I should contact my doctor. Patient/Care Management Associate Signature: Date/Time: Relationship to Patient: Witness Name/Signature: Date[facility]Time[id number] Discharge summary Date of Service 06/29/2024 14:52:22 Discharge Diagnosis Acute on chronic blood loss anemia, felt to be due to decubitus/infectious (post 2 PRBCs) stable hh Sepsis secondary to right gluteal abscess,conservative management with abx BC neg cefdnir and zyvox followup with ID and urology Chronic right gluteal stage IV decubitus ulcer s/p debridement (May 2024); MRI pelvis: 6.4 x 2.4 x8.5 cm right gluteal abscess not large enough fluid collection to drain cont wound vac Nonischemic cardiomyopathy, HFrEF 40-45% (per echo in April 2024) stable Paroxysmal atrial fibrillation (on Eliquis) stable Chronic bifascicular block (LPHB+RBBB) stable GENE on CKD IIIb (baseline creatinine 1.9 2.0) 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 I discussed the risks with the patient still insisted upon leaving and does not want the procedure performed. Patient's AST ALT and alkaline phosphatase are improving for the past 3 days. Patient will be discharged can resume his Eliquis and can follow-up with Dr. Layton for outpatient EGD. I have messaged the team to help expedite this. Anemia, multifactorial (iron deficiency/chronic disease) s/p IV Ferrlecit x 3 doses stable Hospital Course Patient is a 49-year-old gentleman who was admitted on June 18, 2024 after being referred from [facility] where he had initially been referred from his nursing facility for evaluationof acute on chronic anemia along with decubitus wound recently had work done on decubitus wound in march of 2024. (hgb 6 and s/p 2 PRBCs during admit), R gluteal abscess from May prior to admit for which he is being managed at [facility] currently with ID guiding antibiotic management (generalsurgery/urology/plastic surgery recommending conservative management and having signed off). MRI during this admit was found to have concern for abscess but when IR was planing drain there was not enough fluid to remove. Patient also with wound vac connection likely will resolve this fluid collection. IR guided drainage of gluteal abscess seen on MRI of the pelvis; Procedure was aborted as patient did not have significant collection to drain. Patient had antibiotics adjusted by infectious disease to Zyvox and cefdinir. Will require outpatient repeat imaging along with outpatient follow-up with surgical services. 06/27 MRCP results came back showing choledocholithiasis concern along with stone and biliary sludge.I discussed with gastroenterology who recommends ERCP. Patient will have Eliis held consultation to interventional GI for ERCP. patient is planned for procedure on Sunday. Patient today on 06/29 is refusing inpatient ERCP. I discussed with him the risks of not having the procedure performed including development of infection, worsening liver function, worst case clinical deterioration or loss of life. Despite this still is refusing ERCP inpatient. Patient will be discharged with oral antibiotics Zyvox and cefdinir and will follow-up with ERCP GI Dr. Layton as an outpatient. Allergies ampicillin Unknown penicillin Unknown Consults Consult to Physician - Ordered -- 06/18/24 17:04:00 EDT, CIARA VIGIL MD, Routine, gluteal wound with abscess Consult to Physician - Ordered -- 06/18/24 17:04:00 EDT, BIENVENIDO FAIRCHILD DO, Routine, gluteal wound with abscess Consult to Physician - Ordered -- 06/18/24 17:04:00 EDT, FRANCESCA PARNELL MD, Routine, gluteal wound with abscess Consult to Physician - Ordered -- 06/18/24 17:16:00 EDT, BRENDA VAZQUEZ MD, Routine, recent claire's, fluid collection in scrotum Consult to Physician - Ordered -- 06/25/24 10:33:00 EDT, EDVIN OATES MD, Routine, elevated alk phos, elevated gtt Consult to Physician - Ordered -- 06/27/24 9:20:00 EDT, JOSE LAYTON MD, Routine, Biliary sludge/stone concern for choledoco on MRCP Imaging Results and Diagnostics MRI MRPC Result Date: June 26, 2024 Verified By: TUYET MALDONADO MD CLINICAL STATEMENT: IMPRESSION: Gallbladder sludge and stones. The common bile duct is dilated measuring up to 1 cm with intraluminalfilling defects distally mostly compatible with sludge although there isirregular polygonal appearance more distally concerning forcholedocholithiasis. I have personally reviewed the images of this examination and agree with theresident's findings and interpretation. US Abdomen Limited Result Date: June 23, 2024 Verified By: LUIS ENRIQUE CRUZ MD CLINICAL STATEMENT: IMPRESSION: Steatosis or other diffuse hepatocellular disease. No bile duct dilatation. Gallbladdersludge probably related to prolonged fasting. No gallstone orsigns of cholecystitis. IR Aspiration/Drainage Result Date: June 23, 2024 Verified By: WALDO ESPARZA MD CLINICAL STATEMENT: IMPRESSION: 1. Marked reduction of fluid collection within the subcutaneous soft tissuesof the right gluteal region secondary to wound VAC. The collection is toosmall to drain and percutaneous drainage is not necessary as the wound VAC isalready draining the collection. The procedure was aborted. MRI Pelvis w/o Contrast Result Date: June 19, 2024 Verified By: CLINICAL STATEMENT: IMPRESSION: Deep soft tissue ulceration in the right buttocks region with subcutaneouswell-defined thick-walled fluid and gas collection that tracks along thegluteal muscle fascia and inferomedially along the ischial rectal fossaconsistent with subcutaneous abscess. Largest component measures at jayne st6.4 x 2.4 x 8.5 cm. There is no evidence of osteomyelitis. Featheryintramuscular edema within theright gluteal muscles, likelyinflammatory/reactive myositis, no well-defined intramuscular fluidcoll ections to suggest pyomyositis. Bilateral insertional gluteus minimus and medius tendinosis worse on the leftwith partial tearing of the left gluteus minimus at the anterior facet. Additional incidental findings as above. Physical Exam Vitals and Measurements T: 36.6 C (Oral) TMIN: 36.6 C (Oral) TMAX: 36.8 C (Oral) HR: 76 RR: 16 BP: 139/88 SpO2: 97% Weight Dosing Weight: 109.5 kg (06/18/24) Exam: CVS: regular rate and rhythm, no murmurs Lungs: clear to auscultation, good air entry Abdomen: soft, non distended, bowel sounds +, wound vac in place Extremities: No edema, No cyanosis or clubbing FOLDING MACHINE OPERATOR: 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 Code Status Code Status - Ordered -- 06/18/24 17:05:00 EDT, Full Code, Constant Order Admission Date 06/18/24 Discharge Date 06/29/24 Patient Instructions You came to the hospital with blood loss this was felt to be secondary to your groin wound you did need 2 units of blood transfusion. You were also septic in the emergency department we began broad-spectrum IV antibiotics cultures remain negative we will transition to oral antibiotics cefdinir and Zyvox. You can follow-up with the infectious disease and surgical team as an outpatient. Unfortunately the fluid collection was not large enough to drain with a needle but was tunneling to the wound VAC so this will drain. You did have significantly elevated alkaline phosphatase this had been elevated in April as well. I was concerned about blockage in your liver and gallbladder drain system. We performed an MRI showingconcern for sludge and stone. We discussed and recommended in the hospital scope procedure to resolve this. However after discussions of risks of not doing this procedure you want to perform this outpatient rather than inpatient. The risks do include worsening liver function, infection, or in worst-case loss of life. Will have you follow-up with the ERCP team gastroenterology as an outpatient for procedure scheduling. In the meantime continue your anticoagulation with Eliquis until procedure scheduled. Medications New Prescription cefdinir (cefdinir 300 mg oral capsule)1 cap by mouth every 12 hours for 14 Days. Refills: 0. linezolid (Zyvox 600 mg oral tablet)1 tab(s) by mouth two (2) times a day for 14 Days. Refills: 0. Changed insulin glargine (Lantus 100 units/mL10 ml vial solution)15 unit(s) Subcutaneous (INT) daily at bedtime. Unchanged apixaban (Eliquis 5 mg oral tablet)1 tab(s) by mouth two (2) times a day for 30 Days. Refills: 4. bacitracin topical (bacitracin topical ointment)1 application Topical two (2) times a day. bumetanide (bumetanide 1 mg oral tablet)1 tab(s) by mouth two (2) times a day for 30 Days. Start on05/19/24. Refills: 2. emollients, topical1 application Topical two (2) times a day. gabapentin (gabapentin 100 mg oral capsule)3 cap by mouth once a day. glimepiride (glimepiride 4 mg oral tablet)2 tab(s) by mouth with breakfast. insulin lispro (HumaLOG) (HumaLOG 100 units/mL subcutaneous solution)Give 0-10 units/dose Subcutaneous three (3) times a day before meals. lidocaine topical (lidocaine 4% patch)Transdermal every 24 hours. metoprolol (Toprol-XL 100 mg oral tablet, extended release)1 tab(s) by mouth two (2) times a day for 30 Days. Refills: 3. omeprazole (omeprazole 40 mg oral delayed release capsule)1 cap by mouth two (2) times a day. rosuvastatin (rosuvastatin 10 mg oral tablet)1 tab(s) once a day. AM. sodium hypochlorite topical (Dakins Half Strength 0.25% topical solution)1 application Topical two (2) times a day. Follow Up Follow Up with JOSE LAYTON MD When:Within 1-2 days Where:[address] [facility], [place] [phone] Additional Information: call for apt, to schedule ERCP (scope procedure) Follow Up with SON STEEL BA, MD, Infectious Disease, Infectious Disease Group When:Within 1-2 days Where:[facility] [place] [id number] [place] [phone] Additional Information: call for apt Follow Up with PHOEBE ADAM APRN-PRODUCT ENGINEER When:Within 1-2 days Where:[address] [place] [address]- Additional Information: call for apt Follow Up Appointments No qualifying data available. Follow Up Labs/Studies Discharge Labs No Follow-up Labs Discharge Studies No Follow-up Studies Discharge Diet Transfer of Care Diet - Ordered -- Type of Diet: Regular Diet, Calories Permitted: 1800 kcal, 06/29/24 14:51:00 EDT Discharge Activity Transfer of Care Activity - Ordered -- Activity As Tolerated, 06/29/24 14:51:00 EDT Condition on Discharge stable Discharge Disposition SNF Time Spent >30 minutes Digitally Signed by CARMELO LUNDBERG MD on 06/29/2024 02:[address] [address] [id number] Progress note Date of Service June 30, 2024 Chief Complaint Open wound of the suprapubic area History of Fourniers disease Multiple ulcerations of the scrotum suprapubic area and pressure ulcer on the sacral and gluteal area Subjective Wound and ulcer seems to be improving and are getting smaller Objective Vitals and Measurements T: 36.7 C (Oral) TMIN: 36.5 C (Oral) TMAX: 36.7 C (Oral) HR: 78 (Apical) RR: 18 BP: 143/73 SpO2: 95% Denies suprapubic wound which was fairly deep and large 1 is being treated with Dakin's solution and seems to be getting much smaller the weight is about 2 and half centimeters and transversely about7 or 8 cm but seems to be very clean and she is showing evidence of epithelization. There is good epithelialization and skin formation on the shaft of the penis. There was an infected area on the scrotum which has now completely healed Patient was in the right gluteal area which was about 8 or 7 cm deep about 5 to 6 cm in size was down to about the 3 x 3 cm to the depth of about 3 cm and is responding very well to the wound care using wound VAC therapy. Previously noted abscess has not completely disappeared Intake and Output 7AM Yesterday to 7AM Today Intake and Output (Last 24 hours) Intake Oral Intake 960.00 Output Urinary Catheter Output: 2550.00 Stool Count 3.00 Total Summary Total Intake 960.00 Total Output 2550.00 Fluid Balance -1590.00 Physical Exam Weight Dosing Weight: 109.5 kg (06/18/24) Medications Medications (17) Active Scheduled: (9) cefdinir 300 mg Capsule 300 mg 1 cap(s), Oral, BID gabapentin 300 mg Capsule 300 mg 1 cap(s), Oral, qDay insulin glargine 15 unit(s) 0.15 mL, Subcutaneous (INT), qHS insulin lispro 100 units/mL Soln (3 mL) Give 0-15 unit(s), Subcutaneous, achs linezolid 600 mg tablet 600 mg 1 tab(s), Oral, BID metoprolol succinate 100 mg ER tablet 100 mg 1 tab(s), Oral, BID omeprazole [address] capsule 40 mg 1 cap(s), Oral, BID rosuvastatin 10 mg tablet 10 mg 1 tab(s), Oral, qAM sodium hypochlorite topical 0.5% Soln 1 artemio, Topical, BID Continuous: (0) PRN: (8) acetaminophen 325 mg Tablet 650 mg 2 tab(s), Oral, q4h acetaminophen-HYDROcodone 325-10 mg tablet 1 tab(s), Oral, q4h acetaminophen-HYDROcodone 325-5 mg tablet 1 tab(s), Oral, q4h albuterol - ipratropium 2.5 mg-0.5 mg/3 mL Inhal Elena UD 3 mL, Inhalation, q4hRT dextrose 50% Solution Disp syringe 50 mL 12.5 gram(s) 25 mL, IV Push, AsDirected hydromorphone 1 mg/mL (1mL) INJ 1 mg 1 mL, IV Push, q6hr melatonin 3 mg tablet 3 mg 1 tab(s), Oral, qHS ondansetron 2 mg/ 1 mL 2 mL INJ 4 mg 2 mL, IV Push, q4h Lab Results 06/30 07:33 WBC: 8.0 Hgb: 8.7 L Hct: 27.0 L Platelet: 303 Neutrophil %: 64.4 Glucose Level: 183 H Sodium Level: 135 L Potassium Level: 5.2 H BUN: 31.0 H Creatinine Lvl (s): 1.94 H 06/29 07:21 WBC: 8.2 Hgb: 8.6 L Hct: 26.5 L Platelet: 304 Neutrophil %: 64.0 Glucose Level: 174 H Sodium Level: 137 Potassium Level: 5.0 BUN: 29.0 H Creatinine Lvl (s): 1.97 H EKG No qualifying data available. Assessment/Plan Choledocholithiasis Dilation of common bile duct Med the patient should continue with the same treatment with wound VAC to the right gluteal area and dressing changes to the suprapubic areas which seems to be improving patient can [facility]. If they have any questions would be happy to answer. Patient he can be discharged anytime the bed is available Anticipated Date of Discharge Depends on the certification Time Spent About 25 minutes Digitally Signed by FRANCESCA PARNELL MD on 06/30/2024 11:[address] [address] [id number] Discharge summary Date of Service 06/29/2024 14:52:22 Discharge Diagnosis Acute on chronic blood loss anemia, felt to be due to decubitus/infectious (post 2 PRBCs) stable hh Sepsis secondary to right gluteal abscess,conservative management with abx BC neg cefdnir and zyvox followup with ID and urology Chronic right gluteal stage IV decubitus ulcer s/p debridement (May 2024); MRI pelvis: 6.4 x 2.4 x8.5 cm right gluteal abscess not large enough fluid collection to drain cont wound vac Nonischemic cardiomyopathy, HFrEF 40-45% (per echo in April 2024) stable Paroxysmal atrial fibrillation (on Eliquis) stable Chronic bifascicular block (LPHB+RBBB) stable GENE on CKD IIIb (baseline creatinine 1.9 2.0) 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 I discussed the risks with the patient still insisted upon leaving and does not want the procedure performed. Patient's AST ALT and alkaline phosphatase are improving for the past 3 days. Patient will be discharged can resume his Eliquis and can follow-up with Dr. Layton for outpatient EGD. I have messaged the team to help expedite this. Anemia, multifactorial (iron deficiency/chronic disease) s/p IV Ferrlecit x 3 doses stable Hospital Course Patient is a 49-year-old gentleman who was admitted on June 18, 2024 after being referred from [facility] where he had initially been referred from his nursing facility for evaluationof acute on chronic anemia along with decubitus wound recently had work done on decubitus wound in march of 2024. (hgb 6 and s/p 2 PRBCs during admit), R gluteal abscess from May prior to admit for which he is being managed at [facility] currently with ID guiding antibiotic management (generalsurgery/urology/plastic surgery recommending conservative management and having signed off). MRI during this admit was found to have concern for abscess but when IR was planing drain there was not enough fluid to remove. Patient also with wound vac connection likely will resolve this fluid collection. IR guided drainage of gluteal abscess seen on MRI of the pelvis; Procedure was aborted as patient did not have significant collection to drain. Patient had antibiotics adjusted by infectious disease to Zyvox and cefdinir. Will require outpatient repeat imaging along with outpatient follow-up with surgical services. 06/27 MRCP results came back showing choledocholithiasis concern along with stone and biliary sludge.I discussed with gastroenterology who recommends ERCP. Patient will have Eliis held consultationto interventional GI for ERCP. patient is planned for procedure on Sunday. Patient today on 06/29 is refusing inpatient ERCP. I discussed with him the risks of not having the procedure performed including development of infection, worsening liver function, worst case clinical deterioration or loss of life. Despite this still is refusing ERCP inpatient. Patient will be discharged with oral antibiotics Zyvox and cefdinir and will follow-up with ERCP GI Dr. Layton as an outpatient. Allergies ampicillin Unknown penicillin Unknown Consults Consult to Physician - Ordered -- 06/18/24 17:04:00 EDT, CIARA VIGIL MD, Routine, gluteal wound with abscess Consult to Physician - Ordered -- 06/18/24 17:04:00 EDT, BIENVENIDO FAIRCHILD DO, Routine, gluteal wound with abscess Consult to Physician - Ordered -- 06/18/24 17:04:00 EDT, FRANCESCA PARNELL MD, Routine, gluteal wound with abscess Consult to Physician - Ordered -- 06/18/24 17:16:00 EDT, BRENDA VAZQUEZ MD, Routine, recent claire's, fluid collection in scrotum Consult to Physician - Ordered -- 06/25/24 10:33:00 EDT, EDVIN OATES MD, Routine, elevated alk phos, elevated gtt Consult to Physician - Ordered -- 06/27/24 9:20:00 EDT, JOSE LAYTON MD, Routine, Biliary sludge/stone concern for choledoco on MRCP Imaging Results and Diagnostics MRI MRPC Result Date: June 26, 2024 Verified By: TUYET MALDONADO MD CLINICAL STATEMENT: IMPRESSION: Gallbladder sludge and stones. The common bile duct is dilated measuring up to 1 cm with intraluminalfilling defects distally mostly compatible with sludge although there isirregular polygonal appearance more distally concerning forcholedocholithiasis. I have personally reviewed the images of this examination and agree with theresident's findings and interpretation. US Abdomen Limited Result Date: June 23, 2024 Verified By: LUIS ENRIQUE CRUZ MD CLINICAL STATEMENT: IMPRESSION: Steatosis or other diffuse hepatocellular disease. No bile duct dilatation. Gallbladdersludge probably related to prolonged fasting. No gallstone orsigns of cholecystitis. IR Aspiration/Drainage Result Date: June 23, 2024 Verified By: WALDO ESPARZA MD CLINICAL STATEMENT: IMPRESSION: 1. Marked reduction of fluid collection within the subcutaneous soft tissuesof the right gluteal region secondary to wound VAC. The collection is toosmall to drain and percutaneous drainage is not necessary as the wound VAC isalready draining the collection. The procedure was aborted. MRI Pelvis w/o Contrast Result Date: June 19, 2024 Verified By: CLINICAL STATEMENT: IMPRESSION: Deep soft tissue ulceration in the right buttocks region with subcutaneouswell-defined thick-walled fluid and gas collection that tracks along thegluteal muscle fascia and inferomedially along the ischial rectal fossaconsistent with subcutaneous abscess. Largest component measures at jayne st6.4 x 2.4 x 8.5 cm. There is no evidence of osteomyelitis. Featheryintramuscular edema within theright gluteal muscles, likelyinflammatory/reactive myositis, no well-defined intramuscular fluidcoll ections to suggest pyomyositis. Bilateral insertional gluteus minimus and medius tendinosis worse on the leftwith partial tearing of the left gluteus minimus at the anterior facet. Additional incidental findings as above. Physical Exam Vitals and Measurements T: 36.6 C (Oral) TMIN: 36.6 C (Oral) TMAX: 36.8 C (Oral) HR: 76 RR: 16 BP: 139/88 SpO2: 97% Weight Dosing Weight: 109.5 kg (06/18/24) Exam: CVS: regular rate and rhythm, no murmurs Lungs: clear to auscultation, good air entry Abdomen: soft, non distended, bowel sounds +, wound vac in place Extremities: No edema, No cyanosis or clubbing FOLDING MACHINE OPERATOR: 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 Code Status Code Status - Ordered -- 06/18/24 17:05:00 EDT, Full Code, Constant Order Admission Date 06/18/24 Discharge Date 06/29/24 Patient Instructions You came to the hospital with blood loss this was felt to be secondary to your groin wound you did need 2 units of blood transfusion. You were also septic in the emergency department we began broad-spectrum IV antibiotics cultures remain negative we will transition to oral antibiotics cefdinir and Zyvox. You can follow-up with the infectious disease and surgical team as an outpatient. Unfortunately the fluid collection was not large enough to drain with a needle but was tunneling to the wound VAC so this will drain. You did have significantly elevated alkaline phosphatase this had been elevated in April as well. I was concerned about blockage in your liver and gallbladder drain system. We performed an MRI showingconcern for sludge and stone. We discussed and recommended in the hospital scope procedure to resolve this. However after discussions of risks of not doing this procedure you want to perform this outpatient rather than inpatient. The risks do include worsening liver function, infection, or in worst-case loss of life. Will have you follow-up with the ERCP team gastroenterology as an outpatient for procedure scheduling. In the meantime continue your anticoagulation with Eliquis until procedure scheduled. Medications New Prescription cefdinir (cefdinir 300 mg oral capsule)1 cap by mouth every 12 hours for 14 Days. Refills: 0. linezolid (Zyvox 600 mg oral tablet)1 tab(s) by mouth two (2) times a day for 14 Days. Refills: 0. Changed insulin glargine (Lantus 100 units/mL10 ml vial solution)15 unit(s) Subcutaneous (INT) daily at bedtime. Unchanged apixaban (Eliquis 5 mg oral tablet)1 tab(s) by mouth two (2) times a day for 30 Days. Refills: 4. bacitracin topical (bacitracin topical ointment)1 application Topical two (2) times a day. bumetanide (bumetanide 1 mg oral tablet)1 tab(s) by mouth two (2) times a day for 30 Days. Start on05/19/24. Refills: 2. emollients, topical1 application Topical two (2) times a day. gabapentin (gabapentin 100 mg oral capsule)3 cap by mouth once a day. glimepiride (glimepiride 4 mg oral tablet)2 tab(s) by mouth with breakfast. insulin lispro (HumaLOG) (HumaLOG 100 units/mL subcutaneous solution)Give 0-10 units/dose Subcutaneous three (3) times a day before meals. lidocaine topical (lidocaine 4% patch)Transdermal every 24 hours. metoprolol (Toprol-XL 100 mg oral tablet, extended release)1 tab(s) by mouth two (2) times a day for 30 Days. Refills: 3. omeprazole (omeprazole 40 mg oral delayed release capsule)1 cap by mouth two (2) times a day. rosuvastatin (rosuvastatin 10 mg oral tablet)1 tab(s) once a day. AM. sodium hypochlorite topical (Dakins Half Strength 0.25% topical solution)1 application Topical two (2) times a day. Follow Up Follow Up with JOSE LAYTON MD When:Within 1-2 days Where:[address] [facility], [place] [phone] Additional Information: call for apt, to schedule ERCP (scope procedure) Follow Up with SON STEEL BA, MD, Infectious Disease, Infectious Disease Group When:Within 1-2 days Where:[facility] [place] [id number] [place] [phone] Additional Information: call for apt Follow Up with PHOEBE ADAM APRN-ABEBA When:Within 1-2 days Where:[address] [place] [address]- Additional Information: call for apt Follow Up Appointments No qualifying data available. Follow Up Labs/Studies Discharge Labs No Follow-up Labs Discharge Studies No Follow-up Studies Discharge Diet Transfer of Care Diet - Ordered -- Type of Diet: Regular Diet, Calories Permitted: 1800 kcal, 06/29/24 14:51:00 EDT Discharge Activity Transfer of Care Activity - Ordered -- Activity As Tolerated, 06/29/24 14:51:00 EDT Condition on Discharge stable Discharge Disposition SNF Time Spent >30 minutes Digitally Signed by CARMELO LUNDBERG MD on 06/29/2024 02:[address] [facility] [id number] Gastroenterology Consult note Date of Service 06/29/2024 Reason for Consultation ERCP for choledocholithiasis History of Present Illness Mr. Sea Nair is a 49-year-old white male who we are not familiar with underlying medical problemsincluding diabetes peripheral neuropathy recent cellulitis and sepsis chronic renal failure and anemia. Patient has been in extended-care facility after a April admission for sepsis for rehabilitation. In the end of May he was admitted for anemia but has not yet been discharged as he had complications which has included increasing upward trending LFTs and now evidence of biliary obstruction. Dr. Oates has been following the case and because of dilated CBD on imaging MRCP was ordered that confirmed at least biliary sludge if not stone with ductal dilatation. The gallbladder itself was without significant clinical finding. Clinically the patient is asymptomatic he has been eating and has been tolerating he denies any nausea no postprandial complaints no abdominal pain. He is also has not noticed any jaundice. His bowels have been active. There has been no signs of GI bleeding. Because Dr. Oates or his team no longer does ERCPs we have been asked to see him for this purpose Review of Systems Patient does report weight loss since his admission this spring but prior to that he states his weight had been stable He denies flulike symptoms fevers chills sweats or myalgias He has no specific respiratory complaints no cough wheeze shortness of breath No chest pain complaint syncope or lightheadedness Denies falls balance or coordination issue Again he does have neuropathy No bruising bleeding blood disorders No history of hepatitis or pancreatitis Physical Exam Vitals and Measurements T: 36.8 C (Oral) TMIN: 36.6 C (Oral) TMAX: 36.8 C (Oral) HR: 74 (Apical) RR: 16 BP: 147/88 SpO2: 97% Weight Dosing Weight: 109.5 kg (06/18/24) Awake alert responsive oriented no acute distress Skin clear no rash no jaundice multiple intact tattoos Eyes are nonicteric mucosa pink moist neck supple Lungs are clear heart regular rhythm no noted murmur Abdomen nondistended positive bowel sounds soft nontender there is no guarding or rebound organomegaly no palpable fullness or mass Rectal deferred Lab Results 06/29 07:21 WBC: 8.2 Hgb: 8.6 L Hct: 26.5 L Platelet: 304 Neutrophil %: 64.0 Glucose Level: 174 H Sodium Level: 137 Potassium Level: 5.0 BUN: 29.0 H Creatinine Lvl (s): 1.97 H 06/28 07:13 WBC: 8.0 Hgb: 8.8 L Hct: 26.4 L Platelet: 285 Neutrophil %: 64.3 Glucose Level: 167 H Sodium Level: 135 L Potassium Level: 4.8 BUN: 27.0 H Creatinine Lvl (s): 1.97 H Imaging Results and Diagnostics (06/26/2024 11:05 EDT MRI MRPC) IMPRESSION: Gallbladder sludge and stones. The common bile duct is dilated measuring up to 1 cm with intraluminal filling defects distally mostly compatible with sludge although there is irregular polygonal appearance more distally concerning for choledocholithiasis. I have personally reviewed the images of this examination and agree with the resident's findings and interpretation. [1] Assessment/Plan 1. Dilation of common bile duct With associated elevated LFTs but normal bilirubin Asymptomatic Long discussion with patient regarding current issues including complications risk benefits and potential findings Plan Continue to hold [employer] ERCP plan for Sunday Patient understands but is requesting elective procedure to be arranged Admitting to further discussed with patient and decide on disposition 2. 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 Medications Inpatient cefdinir, 300 mg= 1 cap(s), Oral, BID Dakins Full Strength 0.5% topical solution, 1 artemio, Topical, BID Dextrose 50% IV Push, 12.5 gram(s)= 25 mL, IV Push, AsDirected, PRN Dilaudid, 1 mg= 1 mL, IV Push, q6hr, PRN DuoNeb, 3 mL, Inhalation, q4hRT, PRN gabapentin, 300 mg= 1 cap(s), Oral, qDay insulin lispro (HumaLOG), Give 0-15 unit(s), Subcutaneous, achs Lantus, 15 unit(s)= 0.15 mL, Subcutaneous (INT), qHS melatonin, 3 mg= 1 tab(s), Oral, qHS, PRN [place] 325- 5 mg oral tablet, 1 tab(s), Oral, q4h, PRN [place] 325-10 mg oral tablet, 1 tab(s), Oral, q4h, PRN omeprazole, 40 mg= 1 cap(s), Oral, BID rosuvastatin, 10 mg= 1 tab(s), Oral, qAM Toprol-XL, 100 mg= 1 tab(s), Oral, BID Tylenol, 650 mg= 2 tab(s), Oral, q4h, PRN Zofran, 4 mg= 2 mL, IV Push, q4h, PRN Zyvox, 600 mg= 1 tab(s), Oral, BID Home bacitracin topical ointment, 1 artemio, Topical, BID bumetanide 1 mg oral tablet, 1 mg= 1 tab(s), Oral, BID, 2 refills cefdinir 300 mg oral capsule, 300 mg= 1 cap(s), Oral, q12h Dakins Half Strength 0.25% topical solution, 1 artemio, Topical, BID Eliquis 5 mg oral tablet, 5 mg= 1 tab(s), Oral, BID, 4 refills emollients, topical, 1 artemio, Topical, BID gabapentin 100 mg oral capsule, 300 mg= 3 cap(s), Oral, qDay glimepiride 4 mg oral tablet, 8 mg= 2 tab(s), Oral, with breakfast HumaLOG 100 units/mL subcutaneous solution, Give 0-10 units/dose, Subcutaneous, TIDAC Lantus Solostar Pen 100 units/mL 3 mL Pen, 30 unit(s), Subcutaneous, qHS lidocaine 4% patch, Transdermal, q24h omeprazole 40 mg oral delayed release capsule, 40 mg= 1 cap(s), Oral, BID rosuvastatin 10 mg oral tablet, 10 mg= 1 tab(s), qDay Toprol-XL 100 mg oral tablet, extended release, 100 mg= 1 tab(s), Oral, BID, 3 refills Zyvox 600 mg oral tablet, 600 mg= 1 tab(s), Oral, BID Allergies ampicillin Unknown penicillin Unknown Social History Smoking Status - 08/17/2018 Current every day smoker Alcohol - No Risk, 09/19/2020 Use: Current. Frequency: 1-2 times per year., 07/07/2023 Home/Environment Living situation: Home/Independent. Safe place to go: Yes. Financial concerns: No. Domestic Concerns: None., 03/08/2024 Nutrition/Health Type of diet: Regular. Appetite Good. Eating Difficulties None., 03/08/2024 Substance Abuse - Denies Substance Abuse, 08/17/2018 Use: Never., 04/30/2019 Tobacco - No Risk, 09/19/2020 Tobacco Use: 10 or more cigarettes (1/2 pack or more)/day in last 30 days. Type: Cigarettes., 04/30/2019 Family History Patient was adopted Alcohol abuse: Father. Diabetes: Father. Health Status Family Member(s) Immunizations tetanus/diphth/pertuss (Tdap) adult/adol: 0.5 mL (08/17/18) [1] MRI MRPC; TUYET MALDONADO MD 06/26/2024 11:05 EDT Digitally Signed by ANGEL DUMONT PA-C on 06/29/2024 09:39 AM Digitally Signed by JOSE LAYTON [facility] [id number] Note Date of Service 06/28/2024 10:35:38 Chief Complaint elevated alk phos Subjective Patient is a 49-year-old gentleman who was admitted on June 18, 2024 after being referred from [facility] where he had initially been referred from his nursing facility for evaluationof acute on chronic anemia along with decubitus wound recently had work done on decubitus wound in march of 2024. (hgb 6 and s/p 2 PRBCs during admit), R gluteal abscess from May prior to admit for which he is being managed at [facility] currently with ID guiding antibiotic management (generalsurgery/urology/plastic surgery recommending conservative management and having signed off). MRI during this admit was found to have concern for abscess but when IR was planing drain there was not enough fluid to remove. Patient also with wound vac connection likely will resolve this fluid collection. IR guided drainage of gluteal abscess seen on MRI of the pelvis; Procedure was aborted as patient did not have significant collection to drain. Patient had antibiotics adjusted by infectious disease to Zyvox and cefdinir. Will require outpatient repeat imaging along with outpatient follow-up with surgical services. 06/27 MRCP results came back showing choledocholithiasis concern along with stone and biliary sludge.I discussed with gastroenterology who recommends ERCP. Patient will have Elimar[place] held consultation to interventional GI for ERCP. patient is planned for procedure on Sunday. I saw and spoke with the patient today on 06/28 patient states that he is feeling decent denies any abdominal pain he states that he was told by gastroenterology yesterday that he could have this procedure as an outpatient. This is different than my discussion with GI yesterday. I will touch base with GI today and discuss inpatient versus outpatient ERCP for concern choledocholithiasis. Objective Vitals and Measurements T: 36.4 C (Oral) TMIN: 36.4 C (Oral) TMAX: 36.6 C (Oral) HR: 86 (Apical) RR: 16 BP: 135/76 SpO2: 96% Intake and Output 7AM Yesterday to 7AM Today Intake and Output (Last 24 hours) Intake Oral Intake 720.00 Supplement Intake 240.00 Output Urinary Catheter Output: 3200.00 Stool Count 0.00 Total Summary Total Intake 960.00 Total Output 3200.00 Fluid Balance -2240.00 Physical Exam Exam: CVS: regular rate and rhythm, no murmurs Lungs: clear to auscultation, good air entry Abdomen: soft, non distended, bowel sounds +, wound VAC in place, no tenderness FOLDING MACHINE OPERATOR: 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 Weight Dosing Weight: 109.5 kg (06/18/24) Medications Medications (18) Active Scheduled: (10) cefdinir 300 mg Capsule 300 mg 1 cap(s), Oral, BID gabapentin 300 mg Capsule 300 mg 1 cap(s), Oral, qDay insulin glargine 15 unit(s) 0.15 mL, Subcutaneous (INT), qHS insulin lispro 100 units/mL Soln (3 mL) Give 0-15 unit(s), Subcutaneous, achs linezolid 600 mg tablet 600 mg 1 tab(s), Oral, BID magnesium sulfate 4 gram(s) 100 mL, IV Piggyback, Once metoprolol succinate 100 mg ER tablet 100 mg 1 tab(s), Oral, BID omeprazole [address] capsule 40 mg 1 cap(s), Oral, BID rosuvastatin 10 mg tablet 10 mg 1 tab(s), Oral, qAM sodium hypochlorite topical 0.5% Soln 1 artemio, Topical, BID Continuous: (0) PRN: (8) acetaminophen 325 mg Tablet 650 mg 2 tab(s), Oral, q4h acetaminophen-HYDROcodone 325-10 mg tablet 1 tab(s), Oral, q4h acetaminophen-HYDROcodone 325-5 mg tablet 1 tab(s), Oral, q4h albuterol - ipratropium 2.5 mg-0.5 mg/3 mL Inhal Elena UD 3 mL, Inhalation, q4hRT dextrose 50% Solution Disp syringe 50 mL 12.5 gram(s) 25 mL, IV Push, AsDirected hydromorphone 1 mg/mL (1mL) INJ 1 mg 1 mL, IV Push, q6hr melatonin 3 mg tablet 3 mg 1 tab(s), Oral, qHS ondansetron 2 mg/ 1 mL 2 mL INJ 4 mg 2 mL, IV Push, q4h Lab Results 06/28 07:13 WBC: 8.0 Hgb: 8.8 L Hct: 26.4 L Platelet: 285 Neutrophil %: 64.3 Glucose Level: 167 H Sodium Level: 135 L Potassium Level: 4.8 BUN: 27.0 H Creatinine Lvl (s): 1.97 H 06/27 08:27 WBC: 7.1 Hgb: 8.5 L Hct: 26.7 L Platelet: 308 Neutrophil %: 57.7 Glucose Level: 217 H Sodium Level: 136 Potassium Level: 4.9 BUN: 26.0 H Creatinine Lvl (s): 1.82 H EKG No qualifying data available. Assessment/Plan Acute on chronic blood loss anemia, felt to be due to decubitus/infectious (post 2 PRBCs) stable hh Sepsis secondary to right gluteal abscess,conservative management with abx BC neg changed to cefdnir and zyvox followup with ID and surgery team duration of ABX below Chronic right gluteal stage IV decubitus ulcer s/p debridement (May 2024); MRI pelvis: 6.4 x 2.4 x8.5 cm right gluteal abscess not large enough fluid collection to drain cont wound vac Nonischemic cardiomyopathy, HFrEF 40-45% (per echo in April 2024) stable Paroxysmal atrial fibrillation (on Eliquis) stable Chronic bifascicular block (LPHB+RBBB) stable GENE on CKD IIIb (baseline creatinine 1.9 2.0) stable 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); CT abdomen/pelvis 2.8 x 1.5 x 2.9 cm heterogeneous fluid collection in the left side of the perineum, inferior scrotum zyvox and cefdnir outpatient followup with ID and surgery repeat CT abd in 2 weeks Type 2 diabetes mellitus sliding scale Essential hypertension stable elevated alk phos + AST ALT elevated GGT abd us showing steatosis, intrahepatic disease hepatitis panel neg MRCP - showing CBD obstruction d/w GI and recommended ERCP consult to GI ERCP team holding eliquis will d/w GI about inpatient and outpatient ERCP Anemia, multifactorial (iron deficiency/chronic disease) s/p IV Ferrlecit x 3 doses stable Digitally Signed by CARMELO LUNDBERG MD on 06/28/2024 10:[address] [address] [facility] [id number] Note Date of Service 06/27/2024 12:16:22 Chief Complaint weakness Subjective Patient is a 49-year-old gentleman who was admitted on June 18, 2024 after being referred from [facility] where he had initially been referred from his nursing facility for evaluationof acute on chronic anemia along with decubitus wound recently had work done on decubitus wound in march of 2024. (hgb 6 and s/p 2 PRBCs during admit), R gluteal abscess from May prior to admit for which he is being managed at [facility] currently with ID guiding antibiotic management (generalsurgery/urology/plastic surgery recommending conservative management and having signed off). MRI during this admit was found to have concern for abscess but when IR was planing drain there was not enough fluid to remove. Patient also with wound vac connection likely will resolve this fluid collection. IR guided drainage of gluteal abscess seen on MRI of the pelvis; Procedure was aborted as patient did not have significant collection to drain. Patient had antibiotics adjusted by infectious disease to Zyvox and cefdinir. Will require outpatient repeat imaging along with outpatient follow-up with surgical services. Patient seen today on 06/27 MRCP results came back showing choledocholithiasis concern along with stone and biliary sludge. I discussed with gastroenterology who recommends ERCP. Patient will have Alexey held consultation to interventional GI for ERCP. I discussed with patient he is reluctant to stay for procedure but understands the importance. Objective Vitals and Measurements T: 36.5 C (Axillary) TMIN: 36.5 C (Axillary) TMAX: 36.7 C (Oral) HR: 78 (Apical) RR: 16 BP: 148/86 SpO2: 97% Intake and Output 7AM Yesterday to 7AM Today Intake and Output (Last 24 hours) Intake Oral Intake 608.00 Output Urinary Catheter Output: 1350.00 Stool Count 3.00 Total Summary Total Intake 608.00 Total Output 1350.00 Fluid Balance -742.00 Physical Exam Exam: Abdomen: soft, non distended, bowel sounds +, no tenderness drain in place Extremities: No edema, No cyanosis or clubbing FOLDING MACHINE OPERATOR: 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 Weight Dosing Weight: 109.5 kg (06/18/24) Medications Medications (17) Active Scheduled: (9) cefdinir 300 mg Capsule 300 mg 1 cap(s), Oral, BID gabapentin 300 mg Capsule 300 mg 1 cap(s), Oral, qDay insulin glargine 15 unit(s) 0.15 mL, Subcutaneous (INT), qHS insulin lispro 100 units/mL Soln (3 mL) Give 0-15 unit(s), Subcutaneous, achs linezolid 600 mg tablet 600 mg 1 tab(s), Oral, BID metoprolol succinate 100 mg ER tablet 100 mg 1 tab(s), Oral, BID omeprazole [address] capsule 40 mg 1 cap(s), Oral, BID rosuvastatin 10 mg tablet 10 mg 1 tab(s), Oral, qAM sodium hypochlorite topical 0.5% Soln 1 artemio, Topical, BID Continuous: (0) PRN: (8) acetaminophen 325 mg Tablet 650 mg 2 tab(s), Oral, q4h acetaminophen-HYDROcodone 325-10 mg tablet 1 tab(s), Oral, q4h acetaminophen-HYDROcodone 325-5 mg tablet 1 tab(s), Oral, q4h albuterol - ipratropium 2.5 mg-0.5 mg/3 mL Inhal Elena UD 3 mL, Inhalation, q4hRT dextrose 50% Solution Disp syringe 50 mL 12.5 gram(s) 25 mL, IV Push, AsDirected hydromorphone 1 mg/mL (1mL) INJ 1 mg 1 mL, IV Push, q6hr melatonin 3 mg tablet 3 mg 1 tab(s), Oral, qHS ondansetron 2 mg/ 1 mL 2 mL INJ 4 mg 2 mL, IV Push, q4h Lab Results 06/27 08:27 WBC: 7.1 Hgb: 8.5 L Hct: 26.7 L Platelet: 308 Neutrophil %: 57.7 Glucose Level: 217 H Sodium Level: 136 Potassium Level: 4.9 BUN: 26.0 H Creatinine Lvl (s): 1.82 H 06/26 08:05 WBC: 7.8 Hgb: 8.4 L Hct: 26.1 L Platelet: 349 Neutrophil %: 61.1 Protime: 15.3 H PT International Ratio: 1.3 Glucose Level: 227 H Sodium Level: 135 L Potassium Level: 5.3 H BUN: 26.0 H Creatinine Lvl (s): 1.92 H EKG No qualifying data available. Assessment/Plan Acute on chronic blood loss anemia, felt to be due to decubitus/infectious (post 2 PRBCs) stable hh Sepsis secondary to right gluteal abscess,conservative management with abx BC neg changed to cefdnir and zyvox followup with ID and surgery team Chronic right gluteal stage IV decubitus ulcer s/p debridement (May 2024); MRI pelvis: 6.4 x 2.4 x8.5 cm right gluteal abscess not large enough fluid collection to drain cont wound vac Nonischemic cardiomyopathy, HFrEF 40-45% (per echo in April 2024) stable Paroxysmal atrial fibrillation (on Eliquis) stable Chronic bifascicular block (LPHB+RBBB) stable GENE on CKD IIIb (baseline creatinine 1.9 2.0) stable 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); CT abdomen/pelvis 2.8 x 1.5 x 2.9 cm heterogeneous fluid collection in the left side of the perineum, inferior scrotum zyvox and cefdnir outpatient followup with ID and surgery repeat CT abd in 2 weeks Type 2 diabetes mellitus sliding scale Essential hypertension stable elevated alk phos + AST ALT elevated GGT abd us showing steatosis, intrahepatic disease hepatitis panel neg MRCP - showing CBD obstruction d/w GI and recommended ERCP consult to GI ERCP team Anemia, multifactorial (iron deficiency/chronic disease) s/p IV Ferrlecit x 3 doses stable Digitally Signed by CARMELO LUNDBERG MD on 06/27/2024 12:[address] [facility] [id number] Gastroenterology Progress note Date of Service June 27, 2024 Chief Complaint Elevated liver test with marked elevation of alkaline phosphatase Subjective He denies any abdominal pain, nausea or vomiting. There is no fever or chills. He denies any itching. There is no history of dark urine. Bilirubin 0.3, alkaline phosphatase 1616, AST 2.8, ALT 212. MRCP shows dilated common bile duct at 1 cm. There is sludge and small stones in the gallbladder. There is sludge in the common bile duct with probable choledocholithiasis. Objective Vitals and Measurements T: 36.5 C (Axillary) TMIN: 36.5 C (Axillary) TMAX: 36.7 C (Oral) HR: 78 (Apical) RR: 16 BP: 148/86 SpO2: 97% Intake and Output 7AM Yesterday to 7AM Today Intake and Output (Last 24 hours) Intake Oral Intake 608.00 Output Urinary Catheter Output: 1350.00 Stool Count 3.00 Total Summary Total Intake 608.00 Total Output 1350.00 Fluid Balance -742.00 Physical Exam Eyes: No icterus or pallor ENMT: No thyromegaly or lymphadenopathy CVS: No lifts or heaves. No murmur or rub. Respiratory: Chest was clear to auscultation and percussion Gastrointestinal: Abdomen was soft and nontender. Liver and spleen are not palpable. Bowel sounds are normal. Neurological: Patient was alert and oriented 3. There was no focal neurological deficit. Psych: Mood and affect are normal. Skin: The skin was warm and there was no jaundice. Weight Dosing Weight: 109.5 kg (06/18/24) Medications Medications (18) Active Scheduled: (10) apixaban 5 mg tablet 5 mg 1 tab(s), Oral, BID cefdinir 300 mg Capsule 300 mg 1 cap(s), Oral, BID gabapentin 300 mg Capsule 300 mg 1 cap(s), Oral, qDay insulin glargine 15 unit(s) 0.15 mL, Subcutaneous (INT), qHS insulin lispro 100 units/mL Soln (3 mL) Give 0-15 units/dose, Subcutaneous, achs linezolid 600 mg tablet 600 mg 1 tab(s), Oral, BID metoprolol succinate 100 mg ER tablet 100 mg 1 tab(s), Oral, BID omeprazole [address] capsule 40 mg 1 cap(s), Oral, BID rosuvastatin 10 mg tablet 10 mg 1 tab(s), Oral, qAM sodium hypochlorite topical 0.5% Soln 1 artemio, Topical, BID Continuous: (0) PRN: (8) acetaminophen 325 mg Tablet 650 mg 2 tab(s), Oral, q4h acetaminophen-HYDROcodone 325-10 mg tablet 1 tab(s), Oral, q4h acetaminophen-HYDROcodone 325-5 mg tablet 1 tab(s), Oral, q4h albuterol - ipratropium 2.5 mg-0.5 mg/3 mL Inhal Elena UD 3 mL, Inhalation, q4hRT dextrose 50% Solution Disp syringe 50 mL 12.5 gram(s) 25 mL, IV Push, AsDirected hydromorphone 1 mg/mL (1mL) INJ 1 mg 1 mL, IV Push, q6hr melatonin 3 mg tablet 3 mg 1 tab(s), Oral, qHS ondansetron 2 mg/ 1 mL 2 mL INJ 4 mg 2 mL, IV Push, q4h Lab Results 06/27 08:27 WBC: 7.1 Hgb: 8.5 L Hct: 26.7 L Platelet: 308 Neutrophil %: 57.7 Glucose Level: 217 H Sodium Level: 136 Potassium Level: 4.9 BUN: 26.0 H Creatinine Lvl (s): 1.82 H 06/26 08:05 WBC: 7.8 Hgb: 8.4 L Hct: 26.1 L Platelet: 349 Neutrophil %: 61.1 Protime: 15.3 H PT International Ratio: 1.3 Glucose Level: 227 H Sodium Level: 135 L Potassium Level: 5.3 H BUN: 26.0 H Creatinine Lvl (s): 1.92 H EKG No qualifying data available. Assessment/Plan Assessment: 1. Abnormal liver tests with elevated alkaline phosphatase. MRCP shows dilated common bile duct with sludge and probable choledocholithiasis. He also has sludge and small stones in the gallbladder. Plan: 1. Consult Dr. Layton for ERCP 2. Will follow-up in office in 4 to 6 weeks with repeat CBC andchemistry profile 3. Will follow as needed Digitally Signed by EDVIN OATES MD on 06/27/2024 10:[address] [facility] [id number] Note Date of Service 06/26/2024 14:35:11 Chief Complaint weakness Subjective Patient is a 49-year-old gentleman who was admitted on June 18, 2024 after being referred from [facility] where he had initially been referred from his nursing facility for evaluationof acute on chronic anemia along with decubitus wound recently had work done on decubitus wound in march of 2024. (hgb 6 and s/p 2 PRBCs during admit), R gluteal abscess from May prior to admit for which he is being managed at [facility] currently with ID guiding antibiotic management (generalsurgery/urology/plastic surgery recommending conservative management and having signed off). MRI during this admit was found to have concern for abscess but when IR was planing drain there was not enough fluid to remove. Patient also with wound vac connection likely will resolve this fluid collection. IR guided drainage of gluteal abscess seen on MRI of the pelvis; Procedure was aborted as patient did not have significant collection to drain. Patient had antibiotics adjusted by infectious disease to Zyvox and cefdinir. Will require outpatient repeat imaging along with outpatient follow-up with surgical services. Patient seen by gastroenterology yesterday on 06/26 felt that there is possibility patient is having reaction to Rocephin this has been transitioned over to cefdinir. Patient did undergo MRCP today awaiting results. Patient's hepatitis panel was negative. Patient still has elevated alkaline phosphatase along with AST ALT. Bilirubin still at this point is normal Objective Vitals and Measurements T: 36.6 C (Oral) TMIN: 36.6 C (Oral) TMAX: 36.8 C (Oral) HR: 79 RR: 18 BP: 133/80 SpO2: 96% Intake and Output 7AM Yesterday to 7AM Today Intake and Output (Last 24 hours) Intake Oral Intake 400.00 Output Urinary Catheter Output: 1600.00 Stool Count 1.00 Total Summary Total Intake 400.00 Total Output 1600.00 Fluid Balance -1200.00 Physical Exam Exam: HEENT: Ocular ROM intact, no icterus CVS: regular rate and rhythm, no murmurs Abdomen: soft, non distended, no ascites, wound VAC in place Extremities: No edema, no jaundice FOLDING MACHINE OPERATOR: 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 Weight Dosing Weight: 109.5 kg (06/18/24) Medications Medications (18) Active Scheduled: (10) apixaban 5 mg tablet 5 mg 1 tab(s), Oral, BID cefdinir 300 mg Capsule 300 mg 1 cap(s), Oral, BID gabapentin 300 mg Capsule 300 mg 1 cap(s), Oral, qDay insulin glargine 15 unit(s) 0.15 mL, Subcutaneous (INT), qHS insulin lispro 100 units/mL Soln (3 mL) Give 0-15 units/dose, Subcutaneous, achs linezolid 600 mg tablet 600 mg 1 tab(s), Oral, BID metoprolol succinate 100 mg ER tablet 100 mg 1 tab(s), Oral, BID omeprazole [address] capsule 40 mg 1 cap(s), Oral, BID rosuvastatin 10 mg tablet 10 mg 1 tab(s), Oral, qAM sodium hypochlorite topical 0.5% Soln 1 artemio, Topical, BID Continuous: (0) PRN: (8) acetaminophen 325 mg Tablet 650 mg 2 tab(s), Oral, q4h acetaminophen-HYDROcodone 325-10 mg tablet 1 tab(s), Oral, q4h acetaminophen-HYDROcodone 325-5 mg tablet 1 tab(s), Oral, q4h albuterol - ipratropium 2.5 mg-0.5 mg/3 mL Inhal Elena UD 3 mL, Inhalation, q4hRT dextrose 50% Solution Disp syringe 50 mL 12.5 gram(s) 25 mL, IV Push, AsDirected hydromorphone 1 mg/mL (1mL) INJ 1 mg 1 mL, IV Push, q6hr melatonin 3 mg tablet 3 mg 1 tab(s), Oral, qHS ondansetron 2 mg/ 1 mL 2 mL INJ 4 mg 2 mL, IV Push, q4h Lab Results 06/26 08:05 WBC: 7.8 Hgb: 8.4 L Hct: 26.1 L Platelet: 349 Neutrophil %: 61.1 Protime: 15.3 H PT International Ratio: 1.3 Glucose Level: 227 H Sodium Level: 135 L Potassium Level: 5.3 H BUN: 26.0 H Creatinine Lvl (s): 1.92 H 06/25 08:54 WBC: 10.4 Hgb: 8.9 L Hct: 26.8 L Platelet: 335 Neutrophil %: 68.2 Glucose Level: 179 H Sodium Level: 135 L Potassium Level: 5.5 H BUN: 26.0 H Creatinine Lvl (s): 1.79 H EKG No qualifying data available. Assessment/Plan Acute on chronic blood loss anemia, felt to be due to decubitus/infectious (post 2 PRBCs) stable hh still Sepsis secondary to right gluteal abscess,conservative management with abx BC neg changed to cefdnir and zyvox followup with ID and surgery team Chronic right gluteal stage IV decubitus ulcer s/p debridement (May 2024); MRI pelvis: 6.4 x 2.4 x8.5 cm right gluteal abscess not large enough fluid collection to drain cont wound vac Nonischemic cardiomyopathy, HFrEF 40-45% (per echo in April 2024) stable Paroxysmal atrial fibrillation (on Eliquis) stable Chronic bifascicular block (LPHB+RBBB) stable GENE on CKD IIIb (baseline creatinine 1.9 2.0) stable 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); CT abdomen/pelvis 2.8 x 1.5 x 2.9 cm heterogeneous fluid collection in the left side of the perineum, inferior scrotum zyvox and cefdnir outpatient followup with ID and surgery repeat CT abd in 2 weeks Type 2 diabetes mellitus sliding scale Essential hypertension stable elevated alk phos + AST ALT elevated GGT abd us showing steatosis, intrahepatic disease hepatitis panel neg MRCP - pendng results Anemia, multifactorial (iron deficiency/chronic disease) s/p IV Ferrlecit x 3 doses stable Anticipated Date of Discharge precert started 06/25 Digitally Signed by CARMELO LUNDBERG MD on 06/26/2024 02:[address] [facility] [id number] Gastroenterology Progress note Date of Service 06/26/2024 Chief Complaint Elevated alk phos Subjective Sitting up in bed. Denies any current complaints. Eager for discharge. MRCP planned for 11 AM. Objective Vitals and Measurements T: 36.6 C (Oral) TMIN: 36.6 C (Oral) TMAX: 36.8 C (Oral) HR: 79 RR: 18 BP: 133/80 SpO2: 96% Intake and Output 7AM Yesterday to 7AM Today Intake and Output (Last 24 hours) Intake Oral Intake 440.00 Output Urinary Catheter Output: 1600.00 Stool Count 1.00 Total Summary Total Intake 440.00 Total Output 1600.00 Fluid Balance -1160.00 Physical Exam General Appearance: Lying in bed, in no acute distress. Appropriate mood and affect. Head: Head is normocephalic and atraumatic. EENT: Sclera are nonicteric. Neck is supple without adenopathy. Trachea is midline. Cardiac: Heart rate and rhythm are normal. S1 and S2 noted. Lungs: No signs of respiratory distress. Lungs are clear bilaterally. On room air. Abdomen: Abdomen is soft, symmetric, no rebound/guarding, nontender. BS X 4. No obvious masses or organomegaly appreciated. Extremities: No edema noted. Neurological: The patient is awake, alert, and oriented to person, place, and time with normal speech. Skin: Skin is warm, dry. Appropriate color for ethnicity. Wound VAC to gluteal area. Weight Dosing Weight: 109.5 kg (06/18/24) Medications Medications (20) Active Scheduled: (12) apixaban 5 mg tablet 5 mg 1 tab(s), Oral, BID cefdinir 300 mg Capsule 300 mg 1 cap(s), Oral, BID gabapentin 300 mg Capsule 300 mg 1 cap(s), Oral, qDay insulin glargine 15 unit(s) 0.15 mL, Subcutaneous (INT), qHS insulin lispro 100 units/mL Soln (3 mL) Give 0-15 units/dose, Subcutaneous, achs linezolid 600 mg tablet 600 mg 1 tab(s), Oral, BID magnesium sulfate PMX 2 gram(s) 50 mL, IV Piggyback, Once metoprolol succinate 100 mg ER tablet 100 mg 1 tab(s), Oral, BID omeprazole [address] capsule 40 mg 1 cap(s), Oral, BID rosuvastatin 10 mg tablet 10 mg 1 tab(s), Oral, qAM sodium hypochlorite topical 0.5% Soln 1 artemio, Topical, BID sodium zirconium cyclosilicate 10 g REC packet 10 gram(s) 1 packet(s), Oral, Once Continuous: (0) PRN: (8) acetaminophen 325 mg Tablet 650 mg 2 tab(s), Oral, q4h acetaminophen-HYDROcodone 325-10 mg tablet 1 tab(s), Oral, q4h acetaminophen-HYDROcodone 325-5 mg tablet 1 tab(s), Oral, q4h albuterol - ipratropium 2.5 mg-0.5 mg/3 mL Inhal Elena UD 3 mL, Inhalation, q4hRT dextrose 50% Solution Disp syringe 50 mL 12.5 gram(s) 25 mL, IV Push, AsDirected hydromorphone 1 mg/mL (1mL) INJ 1 mg 1 mL, IV Push, q6hr melatonin 3 mg tablet 3 mg 1 tab(s), Oral, qHS ondansetron 2 mg/ 1 mL 2 mL INJ 4 mg 2 mL, IV Push, q4h Lab Results 06/26 08:05 WBC: 7.8 Hgb: 8.4 L Hct: 26.1 L Platelet: 349 Neutrophil %: 61.1 Protime: 15.3 H PT International Ratio: 1.3 Glucose Level: 227 H Sodium Level: 135 L Potassium Level: 5.3 H BUN: 26.0 H Creatinine Lvl (s): 1.92 H 06/25 08:54 WBC: 10.4 Hgb: 8.9 L Hct: 26.8 L Platelet: 335 Neutrophil %: 68.2 Glucose Level: 179 H Sodium Level: 135 L Potassium Level: 5.5 H BUN: 26.0 H Creatinine Lvl (s): 1.79 H Hepatic 06/26/24 08:05 06/24/24 07:15 06/23/24 07:56 Total Protein 6.7 G/dL 6.3 G/dL 6.3 G/dL Albumin Level 1.4 G/dL L 1.3 G/dL L 1.2 G/dL L Globulin 5.3 G/dL H 5.0 G/dL H 5.1 G/dL H A/G Ratio 0.3 ratio L 0.3 ratio L 0.2 ratio L Bili Total 0.40 mg/dL 0.30 mg/dL 0.20 mg/dL AST 432 137 67 ALT 294 81 50 Alk Phos 1921 U/L H 1826 U/L H 1608 U/L H Imaging Results and Diagnostics US Abdomen Limited Result Date: June 23, 2024 Verified By: LUIS ENRIQUE CRUZ MD CLINICAL STATEMENT: IMPRESSION: Steatosis or other diffuse hepatocellular disease. No bile duct dilatation. Gallbladdersludge probably related to prolonged fasting. No gallstone orsigns of cholecystitis. This document was transcribed utilizing voice recognition software and may contain typographical errors. Assessment/Plan Problem list: Abnormal LFTs Elevated alk phos Elevated GGT Abnormal imaging > Coarsened, increased hepatic echotexture c/w steatosis Chronic decubitus wound infection Anemia of chronic disease pAFIB on Eliquis Rectal ulcer (flex sig, 04/2024) We are following the patient the patient due to significantly elevated alk phos. Transaminases havealso elevated recently. Etiology uncertain, but could be multifactorial. Suspect possible DILI withrecent addition of Rocephin. This has since been discontinued. Ultrasound showed no biliary duct dilation. Viral hepatitis negative. Autoimmune panel to rule out PBC, PSC and fractionation to confirmetiology of significantly elevated alk phos are pending. MRCP planned for today to further evaluate/rule out malignancy. As noted previously, patient would likely benefit from colonoscopy in the outpatient setting to reevaluate previous rectal ulcer as well as screen for CRC. Management of remaining diagnoses per primary team/consultants. Further orders/recommendations pending discussion with Dr. Oates. We will continue to follow Digitally Signed by LIAT IBARRA on 06/26/2024 10:[address] [facility] [id number] Note ORIGINAL EXAMINATION: MRCP06/26/2024 11:10 am MRI NONCONTRAST MRCP WITH CONSOLE POST-PROCESSING AND 3D RECONSTRUCTIONS TECHNIQUE: MRCP was performed without the administration of intravenous contrast. COMPARISON: Abdominal ultrasound 06/23/2024, CT abdomen/pelvis 04/24/2024 HISTORY: ORDERING SYSTEM PROVIDED HISTORY: Reason for Exam: elevated alkaline phosphatase FINDINGS: This is a non-contrast study and is not intended or optimized for evaluating solid organ pathology, including mass lesions. There is sludge and small stones present within the gallbladder. There is no intrahepatic bile duct dilatation. The common duct measures up to 1 cm in diameter with abrupt tapering at its most distal point. There are filling defects present within the distal common bile duct. There is somewhat polygonal all appearance of some low-density at the more distal portion of the duct concerning for stone disease. The pancreatic duct is normal in morphology and caliber. There is no peripancreatic edema/fluid to indicate acute pancreatitis. IMPRESSION: Gallbladder sludge and stones. The common bile duct is dilated measuring up to 1 cm with intraluminal filling defects distally mostly compatible with sludge although there is irregular polygonal appearance more distally concerning for choledocholithiasis. I have personally reviewed the images of this examination and agree with the resident's findings and interpretation. Interpreted by: Tuyet Maldonado MD Preliminary Report By: Jr Castañeda Electronically signed By Tuyet Maldonado MD Dictated Date: 06/26/2024 11:22:27 AM Prelim Date: 06/26/2024 5:05:11 PM Sign Date: 06/26/2024 5:05:11 PM Ordering Provider: [facility]08-08-2024 Gastroenterology Progress note Date of Service 06/26/2024 Chief Complaint Elevated alk phos Subjective Sitting up in bed. Denies any current complaints. Eager for discharge. MRCP planned for 11 AM. Objective Vitals and Measurements T: 36.6 C (Oral) TMIN: 36.6 C (Oral) TMAX: 36.8 C (Oral) HR: 79 RR: 18 BP: 133/80 SpO2: 96% Intake and Output 7AM Yesterday to 7AM Today Intake and Output (Last 24 hours) Intake Oral Intake 440.00 Output Urinary Catheter Output: 1600.00 Stool Count 1.00 Total Summary Total Intake 440.00 Total Output 1600.00 Fluid Balance -1160.00 Physical Exam General Appearance: Lying in bed, in no acute distress. Appropriate mood and affect. Head: Head is normocephalic and atraumatic. EENT: Sclera are nonicteric. Neck is supple without adenopathy. Trachea is midline. Cardiac: Heart rate and rhythm are normal. S1 and S2 noted. Lungs: No signs of respiratory distress. Lungs are clear bilaterally. On room air. Abdomen: Abdomen is soft, symmetric, no rebound/guarding, nontender. BS X 4. No obvious masses or organomegaly appreciated. Extremities: No edema noted. Neurological: The patient is awake, alert, and oriented to person, place, and time with normal speech. Skin: Skin is warm, dry. Appropriate color for ethnicity. Wound VAC to gluteal area. Weight Dosing Weight: 109.5 kg (06/18/24) Medications Medications (20) Active Scheduled: (12) apixaban 5 mg tablet 5 mg 1 tab(s), Oral, BID cefdinir 300 mg Capsule 300 mg 1 cap(s), Oral, BID gabapentin 300 mg Capsule 300 mg 1 cap(s), Oral, qDay insulin glargine 15 unit(s) 0.15 mL, Subcutaneous (INT), qHS insulin lispro 100 units/mL Soln (3 mL) Give 0-15 units/dose, Subcutaneous, achs linezolid 600 mg tablet 600 mg 1 tab(s), Oral, BID magnesium sulfate PMX 2 gram(s) 50 mL, IV Piggyback, Once metoprolol succinate 100 mg ER tablet 100 mg 1 tab(s), Oral, BID omeprazole [address] capsule 40 mg 1 cap(s), Oral, BID rosuvastatin 10 mg tablet 10 mg 1 tab(s), Oral, qAM sodium hypochlorite topical 0.5% Soln 1 artemio, Topical, BID sodium zirconium cyclosilicate 10 g REC packet 10 gram(s) 1 packet(s), Oral, Once Continuous: (0) PRN: (8) acetaminophen 325 mg Tablet 650 mg 2 tab(s), Oral, q4h acetaminophen-HYDROcodone 325-10 mg tablet 1 tab(s), Oral, q4h acetaminophen-HYDROcodone 325-5 mg tablet 1 tab(s), Oral, q4h albuterol - ipratropium 2.5 mg-0.5 mg/3 mL Inhal Elena UD 3 mL, Inhalation, q4hRT dextrose 50% Solution Disp syringe 50 mL 12.5 gram(s) 25 mL, IV Push, AsDirected hydromorphone 1 mg/mL (1mL) INJ 1 mg 1 mL, IV Push, q6hr melatonin 3 mg tablet 3 mg 1 tab(s), Oral, qHS ondansetron 2 mg/ 1 mL 2 mL INJ 4 mg 2 mL, IV Push, q4h Lab Results 06/26 08:05 WBC: 7.8 Hgb: 8.4 L Hct: 26.1 L Platelet: 349 Neutrophil %: 61.1 Protime: 15.3 H PT International Ratio: 1.3 Glucose Level: 227 H Sodium Level: 135 L Potassium Level: 5.3 H BUN: 26.0 H Creatinine Lvl (s): 1.92 H 06/25 08:54 WBC: 10.4 Hgb: 8.9 L Hct: 26.8 L Platelet: 335 Neutrophil %: 68.2 Glucose Level: 179 H Sodium Level: 135 L Potassium Level: 5.5 H BUN: 26.0 H Creatinine Lvl (s): 1.79 H Hepatic 06/26/24 08:05 06/24/24 07:15 06/23/24 07:56 Total Protein 6.7 G/dL 6.3 G/dL 6.3 G/dL Albumin Level 1.4 G/dL L 1.3 G/dL L 1.2 G/dL L Globulin 5.3 G/dL H 5.0 G/dL H 5.1 G/dL H A/G Ratio 0.3 ratio L 0.3 ratio L 0.2 ratio L Bili Total 0.40 mg/dL 0.30 mg/dL 0.20 mg/dL AST 432 137 67 ALT 294 81 50 Alk Phos 1921 U/L H 1826 U/L H 1608 U/L H Imaging Results and Diagnostics US Abdomen Limited Result Date: June 23, 2024 Verified By: LUIS ENRIQUE CRUZ MD CLINICAL STATEMENT: IMPRESSION: Steatosis or other diffuse hepatocellular disease. No bile duct dilatation. Gallbladdersludge probably related to prolonged fasting. No gallstone orsigns of cholecystitis. This document was transcribed utilizing voice recognition software and may contain typographical errors. Assessment/Plan Problem list: Abnormal LFTs Elevated alk phos Elevated GGT Abnormal imaging > Coarsened, increased hepatic echotexture c/w steatosis Chronic decubitus wound infection Anemia of chronic disease pAFIB on Eliquis Rectal ulcer (flex sig, 04/2024) We are following the patient the patient due to significantly elevated alk phos. Transaminases havealso elevated recently. Etiology uncertain, but could be multifactorial. Suspect possible DILI withrecent addition of Rocephin. This has since been discontinued. Ultrasound showed no biliary duct dilation. Viral hepatitis negative. Autoimmune panel to rule out PBC, PSC and fractionation to confirmetiology of significantly elevated alk phos are pending. MRCP planned for today to further evaluate/rule out malignancy. As noted previously, patient would likely benefit from colonoscopy in the outpatient setting to reevaluate previous rectal ulcer as well as screen for CRC. Management of remaining diagnoses per primary team/consultants. Further orders/recommendations pending discussion with Dr. Oates. We will continue to follow Digitally Signed by LIAT IBARRA on 06/26/2024 10:[address] 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 Patient originally presented to [facility] with anemia, concern for decubitus wound infection/sepsis. He was transferred and admitted to [facility] on 06/18. On initial presentation, CBC notable for Hgb 7.7 with MCV 81.4. Iron studies c/w anemia of chronic disease with iron 23, TIBC 191,sat 12, ferritin 397.3. CMP notable for sodium 134, BUN 52, creatinine 2.74. TB 0.3, AST 58, ALT 45and AP 1435. Alk phos has continued to elevate throughout this admission up to 1826 yesterday prompting GI consultation. US (06/23/24) noted moderately distended gallbladder with possible layering sludge. No intrahepatic biliary duct dilation. CBD 4 mm. Liver noted to be coarsened with increased echotexture consistent with steatosis or other diffuse hepatocellular process. No focal liver lesions. No ascites. Patient examined resting in bed. He denies any current complaints including abdominal pain, nausea or vomiting. He has been tolerating his order diet. He denies any knowledge of previous liver issues. Unaware of any familial history due to being adopted. Rarely utilizes alcohol. Patient was evaluated by our services in April due to hematochezia. Flexible sigmoidoscopy ( for) noted solitary rectal ulcer (2 cm). Recommendations were to avoid constipation and consider outpatient colonoscopy. No previous EGD. Patient states his bowels are moving normally. No melena or hematochezia. Review of Systems 10 point review of systems was completed. Pertinent positives/negatives are described above in the HPI and are otherwise negative. Physical Exam Vitals and Measurements T: 36.7 C (Oral) TMIN: 36.7 C (Oral) TMAX: 36.9 C (Oral) HR: 80 (Apical) RR: 18 BP: 132/77 SpO2: 94% Weight Dosing Weight: 109.5 kg (06/18/24) General Appearance: Lying in bed, in no acute distress. Appropriate mood and affect. Head: Head is normocephalic and atraumatic. EENT: Sclera are nonicteric. Neck is supple without adenopathy. Trachea is midline. Cardiac: Heart rate and rhythm are normal. S1 and S2 noted. Lungs: No signs of respiratory distress. Lungs are clear bilaterally. On room air. Abdomen: Abdomen is soft, symmetric, no rebound/guarding, nontender. BS X 4. No obvious masses or organomegaly appreciated. Extremities: No edema noted. Neurological: The patient is awake, alert, and oriented to person, place, and time with normal speech. Skin: Skin is warm, dry. Appropriate color for ethnicity. Wound VAC to gluteal area. Lab Results 06/25 08:54 WBC: 10.4 Hgb: 8.9 L Hct: 26.8 L Platelet: 335 Neutrophil %: 68.2 Glucose Level: 179 H Sodium Level: 135 L Potassium Level: 5.5 H BUN: 26.0 H Creatinine Lvl (s): 1.79 H 06/24 07:15 WBC: 9.0 Hgb: 8.3 L Hct: 25.3 L Platelet: 371 Neutrophil %: 61.7 Glucose Level: 120 H Sodium Level: 138 Potassium Level: 5.1 H BUN: 23.0 H Creatinine Lvl (s): 1.89 H Hepatic 06/24/24 07:15 06/23/24 07:56 06/22/24 02:32 Total Protein 6.3 G/dL 6.3 G/dL 5.8 G/dL Albumin Level 1.3 G/dL L 1.2 G/dL L 1.2 G/dL L Globulin 5.0 G/dL H 5.1 G/dL H 4.6 G/dL H A/G Ratio 0.3 ratio L 0.2 ratio L 0.3 ratio L Bili Total 0.30 mg/dL 0.20 mg/dL 0.20 mg/dL AST 137 67 48 ALT 81 50 38 Alk Phos 1826 U/L H 1608 U/L H 1525 U/L H Imaging Results and Diagnostics US Abdomen Limited Result Date: June 23, 2024 Verified By: LUIS ENRIQUE CRUZ MD CLINICAL STATEMENT: IMPRESSION: Steatosis or other diffuse hepatocellular disease. No bile duct dilatation. Gallbladdersludge probably related to prolonged fasting. No gallstone orsigns of cholecystitis. This document was transcribed utilizing voice recognition software and may contain typographical errors. Assessment/Plan Problem list: Abnormal LFTs Elevated alk phos Elevated GGT Abnormal imaging > Coarsened, increased hepatic echotexture c/w steatosis Chronic decubitus wound infection of chronic disease Anemia of chronic disease Rectal ulcer (flex sig, 04/2024) We have been asked to evaluate the patient due to significantly elevated alk phos. Question chronicity of elevation. LFTs WNL in April except for alk phos as high as 476. Etiology uncertain. Likely ofhepatic origin given elevated GGT. Ultrasound showed no biliary duct dilation. Will comprehensive serological workup to further evaluate for PBC, PSC, viral hepatitis. Will fractionate to confirm etiology as well. MRCP is also warranted for further evaluation to rule out underlying process including malignancy. As noted previously, patient would likely benefit from colonoscopy in the outpatient setting to reevaluate previous rectal ulcer as well as screen for CRC. Management of remaining diagnoses per primary team/consultants. Further orders/recommendations pending discussion with Dr. Oates. Please refer to his addendum for same. Thank you for this consult. We will continue to follow. 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 Medications Inpatient cefTRIAXone, 2 gram(s)= 20 mL, IV Push (INT), qDay Dakins Full Strength 0.5% topical solution, 1 artemio, Topical, BID Dextrose 50% IV Push, 12.5 gram(s)= 25 mL, IV Push, AsDirected, PRN Dilaudid, 1 mg= 1 mL, IV Push, q6hr, PRN DuoNeb, 3 mL, Inhalation, q4hRT, PRN Eliquis, 5 mg= 1 tab(s), Oral, BID gabapentin, 300 mg= 1 cap(s), Oral, qDay HumaLOG 100 units/mL subcutaneous solution, Give 0-15 units/dose, Subcutaneous, achs Lantus, 15 unit(s)= 0.15 mL, Subcutaneous (INT), qHS melatonin, 3 mg= 1 tab(s), Oral, qHS, PRN [place] 325- 5 mg oral tablet, 1 tab(s), Oral, q4h, PRN [place] 325-10 mg oral tablet, 1 tab(s), Oral, q4h, PRN omeprazole, 40 mg= 1 cap(s), Oral, BID rosuvastatin, 10 mg= 1 tab(s), Oral, qAM Toprol-XL, 100 mg= 1 tab(s), Oral, BID Tylenol, 650 mg= 2 tab(s), Oral, q4h, PRN Zofran, 4 mg= 2 mL, IV Push, q4h, PRN Zyvox, 600 mg= 1 tab(s), Oral, BID Home bacitracin topical ointment, 1 artemio, Topical, BID bumetanide 1 mg oral tablet, 1 mg= 1 tab(s), Oral, BID, 2 refills cefdinir 300 mg oral capsule, 300 mg= 1 cap(s), Oral, q12h Dakins Half Strength 0.25% topical solution, 1 artemio, Topical, BID Eliquis 5 mg oral tablet, 5 mg= 1 tab(s), Oral, BID, 4 refills emollients, topical, 1 artemio, Topical, BID gabapentin 100 mg oral capsule, 300 mg= 3 cap(s), Oral, qDay glimepiride 4 mg oral tablet, 8 mg= 2 tab(s), Oral, with breakfast HumaLOG 100 units/mL subcutaneous solution, Give 0-10 units/dose, Subcutaneous, TIDAC Lantus Solostar Pen 100 units/mL 3 mL Pen, 30 unit(s), Subcutaneous, qHS lidocaine 4% patch, Transdermal, q24h omeprazole 40 mg oral delayed release capsule, 40 mg= 1 cap(s), Oral, BID rosuvastatin 10 mg oral tablet, 10 mg= 1 tab(s), qDay Toprol-XL 100 mg oral tablet, extended release, 100 mg= 1 tab(s), Oral, BID, 3 refills Zyvox 600 mg oral tablet, 600 mg= 1 tab(s), Oral, BID Allergies ampicillin Unknown penicillin Unknown Social History Smoking Status - 08/17/2018 Current every day smoker Alcohol - No Risk, 09/19/2020 Use: Current. Frequency: 1-2 times per year., 07/07/2023 Home/Environment Living situation: Home/Independent. Safe place to go: Yes. Financial concerns: No. Domestic Concerns: None., 03/08/2024 Nutrition/Health Type of diet: Regular. Appetite Good. Eating Difficulties None., 03/08/2024 Substance Abuse - Denies Substance Abuse, 08/17/2018 Use: Never., 04/30/2019 Tobacco - No Risk, 09/19/2020 Tobacco Use: 10 or more cigarettes (1/2 pack or more)/day in last 30 days. Type: Cigarettes., 04/30/2019 Family History Patient was adopted Alcohol abuse: Father. Diabetes: Father. Health Status Family Member(s) Immunizations tetanus/diphth/pertuss (Tdap) adult/adol: 0.5 mL (08/17/18) Digitally Signed by LIAT IBARRA on 06/25/2024 03:[address] 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 Patient originally presented to [facility] with anemia, concern for decubitus wound infection/sepsis. He was transferred and admitted to [facility] on 06/18. On initial presentation, CBC notable for Hgb 7.7 with MCV 81.4. Iron studies c/w anemia of chronic disease with iron 23, TIBC 191,sat 12, ferritin 397.3. CMP notable for sodium 134, BUN 52, creatinine 2.74. TB 0.3, AST 58, ALT 45and AP 1435. Alk phos has continued to elevate throughout this admission up to 1826 yesterday prompting GI consultation. US (06/23/24) noted moderately distended gallbladder with possible layering sludge. No intrahepatic biliary duct dilation. CBD 4 mm. Liver noted to be coarsened with increased echotexture consistent with steatosis or other diffuse hepatocellular process. No focal liver lesions. No ascites. Patient examined resting in bed. He denies any current complaints including abdominal pain, nausea or vomiting. He has been tolerating his order diet. He denies any knowledge of previous liver issues. Unaware of any familial history due to being adopted. Rarely utilizes alcohol. Patient was evaluated by our services in April due to hematochezia. Flexible sigmoidoscopy ( for) noted solitary rectal ulcer (2 cm). Recommendations were to avoid constipation and consider outpatient colonoscopy. No previous EGD. Patient states his bowels are moving normally. No melena or hematochezia. Review of Systems 10 point review of systems was completed. Pertinent positives/negatives are described above in the HPI and are otherwise negative. Physical Exam Vitals and Measurements T: 36.7 C (Oral) TMIN: 36.7 C (Oral) TMAX: 36.9 C (Oral) HR: 80 (Apical) RR: 18 BP: 132/77 SpO2: 94% Weight Dosing Weight: 109.5 kg (06/18/24) General Appearance: Lying in bed, in no acute distress. Appropriate mood and affect. Head: Head is normocephalic and atraumatic. EENT: Sclera are nonicteric. Neck is supple without adenopathy. Trachea is midline. Cardiac: Heart rate and rhythm are normal. S1 and S2 noted. Lungs: No signs of respiratory distress. Lungs are clear bilaterally. On room air. Abdomen: Abdomen is soft, symmetric, no rebound/guarding, nontender. BS X 4. No obvious masses or organomegaly appreciated. Extremities: No edema noted. Neurological: The patient is awake, alert, and oriented to person, place, and time with normal speech. Skin: Skin is warm, dry. Appropriate color for ethnicity. Wound VAC to gluteal area. Lab Results 06/25 08:54 WBC: 10.4 Hgb: 8.9 L Hct: 26.8 L Platelet: 335 Neutrophil %: 68.2 Glucose Level: 179 H Sodium Level: 135 L Potassium Level: 5.5 H BUN: 26.0 H Creatinine Lvl (s): 1.79 H 06/24 07:15 WBC: 9.0 Hgb: 8.3 L Hct: 25.3 L Platelet: 371 Neutrophil %: 61.7 Glucose Level: 120 H Sodium Level: 138 Potassium Level: 5.1 H BUN: 23.0 H Creatinine Lvl (s): 1.89 H Hepatic 06/24/24 07:15 06/23/24 07:56 06/22/24 02:32 Total Protein 6.3 G/dL 6.3 G/dL 5.8 G/dL Albumin Level 1.3 G/dL L 1.2 G/dL L 1.2 G/dL L Globulin 5.0 G/dL H 5.1 G/dL H 4.6 G/dL H A/G Ratio 0.3 ratio L 0.2 ratio L 0.3 ratio L Bili Total 0.30 mg/dL 0.20 mg/dL 0.20 mg/dL AST 137 67 48 ALT 81 50 38 Alk Phos 1826 U/L H 1608 U/L H 1525 U/L H Imaging Results and Diagnostics US Abdomen Limited Result Date: June 23, 2024 Verified By: LUIS ENRIQUE CRUZ MD CLINICAL STATEMENT: IMPRESSION: Steatosis or other diffuse hepatocellular disease. No bile duct dilatation. Gallbladdersludge probably related to prolonged fasting. No gallstone orsigns of cholecystitis. This document was transcribed utilizing voice recognition software and may contain typographical errors. Assessment/Plan Problem list: Abnormal LFTs Elevated alk phos Elevated GGT Abnormal imaging > Coarsened, increased hepatic echotexture c/w steatosis Chronic decubitus wound infection of chronic disease Anemia of chronic disease Rectal ulcer (flex sig, 04/2024) We have been asked to evaluate the patient due to significantly elevated alk phos. Question chronicity of elevation. LFTs WNL in April except for alk phos as high as 476. Etiology uncertain. Likely ofhepatic origin given elevated GGT. Ultrasound showed no biliary duct dilation. Will comprehensive serological workup to further evaluate for PBC, PSC, viral hepatitis. Will fractionate to confirm etiology as well. MRCP is also warranted for further evaluation to rule out underlying process including malignancy. As noted previously, patient would likely benefit from colonoscopy in the outpatient setting to reevaluate previous rectal ulcer as well as screen for CRC. Management of remaining diagnoses per primary team/consultants. Further orders/recommendations pending discussion with Dr. Oates. Please refer to his addendum for same. Thank you for this consult. We will continue to follow. 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 Medications Inpatient cefTRIAXone, 2 gram(s)= 20 mL, IV Push (INT), qDay Dakins Full Strength 0.5% topical solution, 1 artemio, Topical, BID Dextrose 50% IV Push, 12.5 gram(s)= 25 mL, IV Push, AsDirected, PRN Dilaudid, 1 mg= 1 mL, IV Push, q6hr, PRN DuoNeb, 3 mL, Inhalation, q4hRT, PRN Eliquis, 5 mg= 1 tab(s), Oral, BID gabapentin, 300 mg= 1 cap(s), Oral, qDay HumaLOG 100 units/mL subcutaneous solution, Give 0-15 units/dose, Subcutaneous, achs Lantus, 15 unit(s)= 0.15 mL, Subcutaneous (INT), qHS melatonin, 3 mg= 1 tab(s), Oral, qHS, PRN [place] 325- 5 mg oral tablet, 1 tab(s), Oral, q4h, PRN [place] 325-10 mg oral tablet, 1 tab(s), Oral, q4h, PRN omeprazole, 40 mg= 1 cap(s), Oral, BID rosuvastatin, 10 mg= 1 tab(s), Oral, qAM Toprol-XL, 100 mg= 1 tab(s), Oral, BID Tylenol, 650 mg= 2 tab(s), Oral, q4h, PRN Zofran, 4 mg= 2 mL, IV Push, q4h, PRN Zyvox, 600 mg= 1 tab(s), Oral, BID Home bacitracin topical ointment, 1 artemio, Topical, BID bumetanide 1 mg oral tablet, 1 mg= 1 tab(s), Oral, BID, 2 refills cefdinir 300 mg oral capsule, 300 mg= 1 cap(s), Oral, q12h Dakins Half Strength 0.25% topical solution, 1 artemio, Topical, BID Eliquis 5 mg oral tablet, 5 mg= 1 tab(s), Oral, BID, 4 refills emollients, topical, 1 artemio, Topical, BID gabapentin 100 mg oral capsule, 300 mg= 3 cap(s), Oral, qDay glimepiride 4 mg oral tablet, 8 mg= 2 tab(s), Oral, with breakfast HumaLOG 100 units/mL subcutaneous solution, Give 0-10 units/dose, Subcutaneous, TIDAC Lantus Solostar Pen 100 units/mL 3 mL Pen, 30 unit(s), Subcutaneous, qHS lidocaine 4% patch, Transdermal, q24h omeprazole 40 mg oral delayed release capsule, 40 mg= 1 cap(s), Oral, BID rosuvastatin 10 mg oral tablet, 10 mg= 1 tab(s), qDay Toprol-XL 100 mg oral tablet, extended release, 100 mg= 1 tab(s), Oral, BID, 3 refills Zyvox 600 mg oral tablet, 600 mg= 1 tab(s), Oral, BID Allergies ampicillin Unknown penicillin Unknown Social History Smoking Status - 08/17/2018 Current every day smoker Alcohol - No Risk, 09/19/2020 Use: Current. Frequency: 1-2 times per year., 07/07/2023 Home/Environment Living situation: Home/Independent. Safe place to go: Yes. Financial concerns: No. Domestic Concerns: None., 03/08/2024 Nutrition/Health Type of diet: Regular. Appetite Good. Eating Difficulties None., 03/08/2024 Substance Abuse - Denies Substance Abuse, 08/17/2018 Use: Never., 04/30/2019 Tobacco - No Risk, 09/19/2020 Tobacco Use: 10 or more cigarettes (1/2 pack or more)/day in last 30 days. Type: Cigarettes., 04/30/2019 Family History Patient was adopted Alcohol abuse: Father. Diabetes: Father. Health Status Family Member(s) Immunizations tetanus/diphth/pertuss (Tdap) adult/adol: 0.5 mL (08/17/18) Digitally Signed by LIAT IBARRA on 06/25/2024 03:[address] [facility] [id number] Infectious disease Progress note Date of Service 06/24/2024 Objective Vitals and Measurements T: 36.5 C (Oral) TMIN: 36.5 C (Oral) TMAX: 36.9 C (Oral) HR: 75 RR: 18 BP: 149/84 SpO2: 98% Physical Exam Chart reviewed, patient examined. Patient is alert and oriented x3, resting in bed watching TV. No c/o NVD, patient with 4 documented BMs in the last 24 hours. Denies SOB, denies cough, denies chillsor sweats, denies any pain at this time. No new complaints this AM, patient reports he wants to discharge today as he is feeling well. Respirations easy and nonlabored, 98% on RA. Patient has remained afebrile for the last 24 hours. Per patient reports, IR Aspiration yesterday was unsuccessful due to insufficient fluid. Labs: ESR 54 CRP 6.4 CPK 16 SGOT 67, SGPT 50 Total Bili 0.2 Vanco Trough 20.8 FOCUSED ASSESSMENT: CVS: Regular S1S2 LUNGS: Clear bilaterally, denies SOB, denies cough, on RA ABDOMEN: Rounded, soft, nontender, + bowel sounds, passing gas, denies diarrhea/constipation, 4 documented BMs in the last 24 hours SKIN: Scrotal wound with gauze/ABD dressing in place, right ischial stage 4 pressure injury wound vac in place with no surrounding erythema, left buttock mild erythema/rash SABA, BLE/pedal dry peelingskin INCISIONS/DRESSINGS: Scrotum gauze/ABD dressing intact with scan yellow drainage noted, right ischial wound vac loose but in place with no surrounding erythema noted EXTREMITIES: BLE/pedal dry peeling skin, BUE/BLE stiffness-chronic/unchanged, right ischial stage 4pressure injury/wound vac in place, +2 bilateral pedal edema LINES/TUBES/DRAINS: RFA IV dressing dry & intact, scant dried sanguinous drainage, no erythema at site. Hernandez with no output currently noted to bag. Right ischial wound vac with small amount of sanguinous output noted to canister. CURRENT ANTIBIOTICS: Clindamycin 900mg IV Q8h 06/18 - 06/21 Meropenem 1g IV Q12h 06/18 - present Vanco Dosing IV Q24h 06/18 - present CULTURE RESULTS/MARTI: 06/18 Blood Cultures 12/21 no growth to date -F Weight Dosing Weight: 109.5 kg (06/18/24) Medications Medications (18) Active Scheduled: (10) apixaban 5 mg tablet 5 mg 1 tab(s), Oral, BID gabapentin 300 mg Capsule 300 mg 1 cap(s), Oral, qDay insulin glargine 15 unit(s) 0.15 mL, Subcutaneous (INT), qHS insulin lispro 100 units/mL Soln (3 mL) Give 0-15 units/dose, Subcutaneous, achs meropenem 1 gram(s), IV Piggyback, q12hr metoprolol succinate 100 mg ER tablet 100 mg 1 tab(s), Oral, BID omeprazole [address] capsule 40 mg 1 cap(s), Oral, BID rosuvastatin 10 mg tablet 10 mg 1 tab(s), Oral, qAM sodium hypochlorite topical 0.5% Soln 1 artemio, Topical, BID VANCOMYCIN -- pharmacy re-dosing by random level 1 EA, Miscellaneous, Daily Continuous: (0) PRN: (8) acetaminophen 325 mg Tablet 650 mg 2 tab(s), Oral, q4h acetaminophen-HYDROcodone 325-10 mg tablet 1 tab(s), Oral, q4h acetaminophen-HYDROcodone 325-5 mg tablet 1 tab(s), Oral, q4h albuterol - ipratropium 2.5 mg-0.5 mg/3 mL Inhal Elena UD 3 mL, Inhalation, q4hRT dextrose 50% Solution Disp syringe 50 mL 12.5 gram(s) 25 mL, IV Push, AsDirected hydromorphone 1 mg/mL (1mL) INJ 1 mg 1 mL, IV Push, q6hr melatonin 3 mg tablet 3 mg 1 tab(s), Oral, qHS ondansetron 2 mg/ 1 mL 2 mL INJ 4 mg 2 mL, IV Push, q4h Lab Results 06/24 07:15 WBC: 9.0 Hgb: 8.3 L Hct: 25.3 L Platelet: 371 Neutrophil %: 61.7 06/23 07:56 WBC: 7.9 Hgb: 8.0 L Hct: 24.1 L Platelet: 371 Neutrophil %: 63.6 Glucose Level: 140 H Sodium Level: 136 Potassium Level: 5.0 BUN: 24.0 H Creatinine Lvl (s): 1.97 H Imaging Results and Diagnostics US Abdomen Limited Result Date: June 23, 2024 Verified By: LUIS ENRIQUE CRUZ MD CLINICAL STATEMENT: IMPRESSION: Steatosis or other diffuse hepatocellular disease. No bile duct dilatation. Gallbladdersludge probably related to prolonged fasting. No gallstone orsigns of cholecystitis. IR Aspiration/Drainage Result Date: June 23, 2024 Verified By: WALDO ESPARZA MD CLINICAL STATEMENT: IMPRESSION: 1. Marked reduction of fluid collection within the subcutaneous soft tissuesof the right gluteal region secondary to wound VAC. The collection is toosmall to drain and percutaneous drainage is not necessary as the wound VAC isalready draining the collection. The procedure was aborted. MRI Pelvis w/o Contrast Result Date: June 19, 2024 Verified By: CLINICAL STATEMENT: IMPRESSION: Deep soft tissue ulceration in the right buttocks region with subcutaneouswell-defined thick-walled fluid and gas collection that tracks along thegluteal muscle fascia and inferomedially along the ischial rectal fossaconsistent with subcutaneous abscess. Largest component measures at jayne st6.4 x 2.4 x 8.5 cm. There is no evidence of osteomyelitis. Featheryintramuscular edema within theright gluteal muscles, likelyinflammatory/reactive myositis, no well-defined intramuscular fluidcoll ections to suggest pyomyositis. Bilateral insertional gluteus minimus and medius tendinosis worse on the leftwith partial tearing of the left gluteus minimus at the anterior facet. Additional incidental findings as above. Problem List Infected right gluteal decubitus ulcer History of Claire's gangrene Scrotal cellulitis Digitally Signed by Faiza Galindo RN on 06/24/2024 09:[address] [facility] [id number] Infectious disease Progress note Date of Service 06/24/2024 Objective Vitals and Measurements T: 36.5 C (Oral) TMIN: 36.5 C (Oral) TMAX: 36.9 C (Oral) HR: 75 RR: 18 BP: 149/84 SpO2: 98% Physical Exam Chart reviewed, patient examined. Patient is alert and oriented x3, resting in bed watching TV. No c/o NVD, patient with 4 documented BMs in the last 24 hours. Denies SOB, denies cough, denies chillsor sweats, denies any pain at this time. No new complaints this AM, patient reports he wants to discharge today as he is feeling well. Respirations easy and nonlabored, 98% on RA. Patient has remained afebrile for the last 24 hours. Per patient reports, IR Aspiration yesterday was unsuccessful due to insufficient fluid. Labs: ESR 54 CRP 6.4 CPK 16 SGOT 67, SGPT 50 Total Bili 0.2 Vanco Trough 20.8 FOCUSED ASSESSMENT: CVS: Regular S1S2 LUNGS: Clear bilaterally, denies SOB, denies cough, on RA ABDOMEN: Rounded, soft, nontender, + bowel sounds, passing gas, denies diarrhea/constipation, 4 documented BMs in the last 24 hours SKIN: Scrotal wound with gauze/ABD dressing in place, right ischial stage 4 pressure injury wound vac in place with no surrounding erythema, left buttock mild erythema/rash SABA, BLE/pedal dry peelingskin INCISIONS/DRESSINGS: Scrotum gauze/ABD dressing intact with scan yellow drainage noted, right ischial wound vac loose but in place with no surrounding erythema noted EXTREMITIES: BLE/pedal dry peeling skin, BUE/BLE stiffness-chronic/unchanged, right ischial stage 4pressure injury/wound vac in place, +2 bilateral pedal edema LINES/TUBES/DRAINS: RFA IV dressing dry & intact, scant dried sanguinous drainage, no erythema at site. Hernandez with no output currently noted to bag. Right ischial wound vac with small amount of sanguinous output noted to canister. CURRENT ANTIBIOTICS: Clindamycin 900mg IV Q8h 06/18 - 06/21 Meropenem 1g IV Q12h 06/18 - present Vanco Dosing IV Q24h 06/18 - present CULTURE RESULTS/MARTI: 06/18 Blood Cultures 2/ no growth to date -F Weight Dosing Weight: 109.5 kg (06/18/24) Medications Medications (18) Active Scheduled: (10) apixaban 5 mg tablet 5 mg 1 tab(s), Oral, BID gabapentin 300 mg Capsule 300 mg 1 cap(s), Oral, qDay insulin glargine 15 unit(s) 0.15 mL, Subcutaneous (INT), qHS insulin lispro 100 units/mL Soln (3 mL) Give 0-15 units/dose, Subcutaneous, achs meropenem 1 gram(s), IV Piggyback, q12hr metoprolol succinate 100 mg ER tablet 100 mg 1 tab(s), Oral, BID omeprazole [address] capsule 40 mg 1 cap(s), Oral, BID rosuvastatin 10 mg tablet 10 mg 1 tab(s), Oral, qAM sodium hypochlorite topical 0.5% Soln 1 artemio, Topical, BID VANCOMYCIN -- pharmacy re-dosing by random level 1 EA, Miscellaneous, Daily Continuous: (0) PRN: (8) acetaminophen 325 mg Tablet 650 mg 2 tab(s), Oral, q4h acetaminophen-HYDROcodone 325-10 mg tablet 1 tab(s), Oral, q4h acetaminophen-HYDROcodone 325-5 mg tablet 1 tab(s), Oral, q4h albuterol - ipratropium 2.5 mg-0.5 mg/3 mL Inhal Elena UD 3 mL, Inhalation, q4hRT dextrose 50% Solution Disp syringe 50 mL 12.5 gram(s) 25 mL, IV Push, AsDirected hydromorphone 1 mg/mL (1mL) INJ 1 mg 1 mL, IV Push, q6hr melatonin 3 mg tablet 3 mg 1 tab(s), Oral, qHS ondansetron 2 mg/ 1 mL 2 mL INJ 4 mg 2 mL, IV Push, q4h Lab Results 06/24 07:15 WBC: 9.0 Hgb: 8.3 L Hct: 25.3 L Platelet: 371 Neutrophil %: 61.7 06/23 07:56 WBC: 7.9 Hgb: 8.0 L Hct: 24.1 L Platelet: 371 Neutrophil %: 63.6 Glucose Level: 140 H Sodium Level: 136 Potassium Level: 5.0 BUN: 24.0 H Creatinine Lvl (s): 1.97 H Imaging Results and Diagnostics US Abdomen Limited Result Date: June 23, 2024 Verified By: LUIS ENRIQUE CRUZ MD CLINICAL STATEMENT: IMPRESSION: Steatosis or other diffuse hepatocellular disease. No bile duct dilatation. Gallbladdersludge probably related to prolonged fasting. No gallstone orsigns of cholecystitis. IR Aspiration/Drainage Result Date: June 23, 2024 Verified By: WALDO ESPARZA MD CLINICAL STATEMENT: IMPRESSION: 1. Marked reduction of fluid collection within the subcutaneous soft tissuesof the right gluteal region secondary to wound VAC. The collection is toosmall to drain and percutaneous drainage is not necessary as the wound VAC isalready draining the collection. The procedure was aborted. MRI Pelvis w/o Contrast Result Date: June 19, 2024 Verified By: CLINICAL STATEMENT: IMPRESSION: Deep soft tissue ulceration in the right buttocks region with subcutaneouswell-defined thick-walled fluid and gas collection that tracks along thegluteal muscle fascia and inferomedially along the ischial rectal fossaconsistent with subcutaneous abscess. Largest component measures at jayne st6.4 x 2.4 x 8.5 cm. There is no evidence of osteomyelitis. Featheryintramuscular edema within theright gluteal muscles, likelyinflammatory/reactive myositis, no well-defined intramuscular fluidcoll ections to suggest pyomyositis. Bilateral insertional gluteus minimus and medius tendinosis worse on the leftwith partial tearing of the left gluteus minimus at the anterior facet. Additional incidental findings as above. Problem List Infected right gluteal decubitus ulcer History of Claire's gangrene Scrotal cellulitis Digitally Signed by Faiza Galindo RN on 06/24/2024 09:[address] [facility] [id number] Infectious disease Progress note Subjective Patient was not available in his room during rounds labs and notes reviewed no new complaints Patient has remained afebrile the past 24 hours Creatinine improving Objective Vitals and Measurements T: 36.5 C (Oral) TMIN: 36.5 C (Oral) TMAX: 37.1 C (Oral) HR: 84 (Apical) RR: 18 BP: 139/108 SpO2: 97% Intake and Output 7AM Yesterday to 7AM Today Intake and Output (Last 24 hours) Intake Administration Information 157.34 Oral Intake 240.00 Supplement Intake 250.00 Output Wound Vac 1 0.00 Urinary Catheter Output: 1750.00 Stool Count 1.00 Total Summary Total Intake 647.34 Total Output 1750.00 Fluid Balance -1102.66 Physical Exam Patient was not available in his room during rounds Weight Dosing Weight: 109.5 kg (06/18/24) Medications Medications (20) Active Scheduled: (10) gabapentin 300 mg Capsule 300 mg 1 cap(s), Oral, qDay insulin glargine 15 unit(s) 0.15 mL, Subcutaneous (INT), qHS insulin lispro 100 units/mL Soln (3 mL) Give 0-15 units/dose, Subcutaneous, achs meropenem 1 gram(s), IV Piggyback, q12hr metoprolol succinate 100 mg ER tablet 100 mg 1 tab(s), Oral, BID omeprazole [address] capsule 40 mg 1 cap(s), Oral, BID rosuvastatin 10 mg tablet 10 mg 1 tab(s), Oral, qAM sodium hypochlorite topical 0.5% Soln 1 artemio, Topical, BID VANCOMYCIN -- pharmacy re-dosing by random level 1 EA, Miscellaneous, Daily Vancomycin Trough level 1 EA, Miscellaneous, q12hr Continuous: (1) heparin 25,000 unit(s) [9.13 unit(s)/kg/hr] + Dextrose 5% Premix Diluent 250 mL 250 mL, Intravenous, 10 mL/hr PRN: (9) acetaminophen 325 mg Tablet 650 mg 2 tab(s), Oral, q4h acetaminophen-HYDROcodone 325-10 mg tablet 1 tab(s), Oral, q4h acetaminophen-HYDROcodone 325-5 mg tablet 1 tab(s), Oral, q4h albuterol - ipratropium 2.5 mg-0.5 mg/3 mL Inhal Elena UD 3 mL, Inhalation, q4hRT dextrose 50% Solution Disp syringe 50 mL 12.5 gram(s) 25 mL, IV Push, AsDirected heparin 5,000 units/mL (1 mL) vial 4,000 unit(s) 0.8 mL, IV Push, q6h hydromorphone 1 mg/mL (1mL) INJ 1 mg 1 mL, IV Push, q6hr melatonin 3 mg tablet 3 mg 1 tab(s), Oral, qHS ondansetron 2 mg/ 1 mL 2 mL INJ 4 mg 2 mL, IV Push, q4h Lab Results 06/23 07:56 WBC: 7.9 Hgb: 8.0 L Hct: 24.1 L Platelet: 371 Neutrophil %: 63.6 Glucose Level: 140 H Sodium Level: 136 Potassium Level: 5.0 BUN: 24.0 H Creatinine Lvl (s): 1.97 H 06/22 02:32 WBC: 7.5 Hgb: 7.6 L Hct: 23.2 L Platelet: 402 Neutrophil %: 61.1 Glucose Level: 172 H Sodium Level: 137 Potassium Level: 4.3 BUN: 28.0 H Creatinine Lvl (s): 2.04 H Imaging Results and Diagnostics US Abdomen Limited Result Date: June 23, 2024 Verified By: LUIS ENRIQUE CRUZ MD CLINICAL STATEMENT: IMPRESSION: Steatosis or other diffuse hepatocellular disease. No bile duct dilatation. Gallbladdersludge probably related to prolonged fasting. No gallstone orsigns of cholecystitis. IR Aspiration/Drainage Result Date: June 23, 2024 Verified By: WALDO ESPARZA MD CLINICAL STATEMENT: IMPRESSION: 1. Marked reduction of fluid collection within the subcutaneous soft tissuesof the right gluteal region secondary to wound VAC. The collection is toosmall to drain and percutaneous drainage is not necessary as the wound VAC isalready draining the collection. The procedure was aborted. MRI Pelvis w/o Contrast Result Date: June 19, 2024 Verified By: CLINICAL STATEMENT: IMPRESSION: Deep soft tissue ulceration in the right buttocks region with subcutaneouswell-defined thick-walled fluid and gas collection that tracks along thegluteal muscle fascia and inferomedially along the ischial rectal fossaconsistent with subcutaneous abscess. Largest component measures at jayne st6.4 x 2.4 x 8.5 cm. There is no evidence of osteomyelitis. Featheryintramuscular edema within theright gluteal muscles, likelyinflammatory/reactive myositis, no well-defined intramuscular fluidcoll ections to suggest pyomyositis. Bilateral insertional gluteus minimus and medius tendinosis worse on the leftwith partial tearing of the left gluteus minimus at the anterior facet. Additional incidental findings as above. EKG No qualifying data available. Assessment/Plan Infected right gluteal decubitus ulcer History of Claire's gangrene Scrotal cellulitis This is a 49 yr old male who ID is following for cellulitis scrotum/perineal area, as well as infected Right gluteal decubitus ulcer, in context of prior history of Claire's gangrene. MRI shows 6.4 x 2.4 x 8.5 cm fluid collection in the subcutaneous tissue consistent with abscess this is noted in relation to the right buttock lesion tracking along the gluteus muscle fascia and inferior medial along the ischial rectal fossa Patient was evaluated by IR, the area is too small to drain Blood cultures show NGTD Continue IV vancomycin and Meropenem Patient was not available in his room during rounds ID will follow at a later time but till then call for questions I was present for Silva Marrero LPN , and personally directed, all components of the patient's complete evaluation and management documented by the scribe today. I have personally examined the patient and reviewed all diagnostic data. I have reviewed all of this documentation by the scribe. It documents the history obtained, examination performed, diagnostic testing results compiled by him/her,and discharge information. Digitally Signed by Silva Marrero Licensed Scribe on 06/23/2024 11:55 AM Digitally Signed by SON STEEL BA, MD on 06/23/2024 05:[address] [facility] [id number] Note ORIGINAL EXAMINATION: LIMITED ABDOMINAL ULTRASOUND06/23/2024 10:20 am Limited ultrasound of the abdomen attention right upper quadrant COMPARISON: Noncontrast CT 04/24/2024 TECHNIQUE: This report is based on interpretation of permanently recorded ultrasound images. HISTORY: ORDERING SYSTEM PROVIDED HISTORY: Reason for Exam: Elevated ALP, r/o biliary pathology, FINDINGS: The gallbladder is moderately distended. There is some layering sludge in the gallbladder but no gallstone, wall thickening or pericholecystic edema. Negative sonographic Reyes's sign.. There is no intrahepatic bile duct dilatation. The common duct is 4 mm at the hallie hepatis. The liver is coarsened and diffusely increased in echogenicity. No focal lesion is seen. There is antegrade flow in the main portal vein. The pancreas is completely obscured by bowel gas artifacts. No ascites is seen in the RIGHT upper quadrant. Limited survey images of the RIGHT kidney show normal echogenicity and no pelvocaliectasis. IMPRESSION: Steatosis or other diffuse hepatocellular disease. No bile duct dilatation. Gallbladder sludge probably related to prolonged fasting. No gallstone or signs of cholecystitis. Interpreted by: Luis Enrique Cruz MD Preliminary Report By: Luis Enrique Cruz MD Electronically signed By Luis Enrique Cruz MD Dictated Date: 06/23/2024 10:35:32 AM Prelim Date: 06/23/2024 10:37:07 AM Sign Date: 06/23/2024 10:37:07 AM Ordering Provider: [facility]08-05-2024 Note IR Procedure Record Summary Primary Physician: WALDO ESPARZA MD Finalized Date/Time: 06/23/24 09:24:09 Pt. Name: GURINDER HAHN./Sex: 1975 Male Med Rec #: [id number] Physician: ILEANA RICO MD Financial #: [id number] Pt. Type: I Room/Bed: [facility]/A Admit/Disch: 06/18/24 16:06:00 - Institution: Allergies identified in patient's electronic medical record at time of printing on 06/23/24 Entry 1 Entry 2 Substance ampicillin penicillin Reaction Type Allergy Allergy Last Modified By: CELSO Hughes RN Yvonne M 04/26/24 11:25:34 04/26/24 11:24:22 Case Attendance- IR Entry 1 Entry 2 Entry 3 Case Attendee WALDO ESPARZA MD, Jennifer N Lee, RN Nata Harris RN Role Performed Primary Surgeon Procedure Nurse Procedure Nurse Details Time In 06/23/24 09:00:00 06/23/24 08:21:00 06/23/24 08:21:00 Time Out 06/23/24 09:05:00 06/23/24 09:12:00 06/23/24 09:12:00 Procedure/Preference IR Aspiration/Drainage IR Aspiration/Drainage IR Aspiration/Drainage Card SN SN SN Last Modified By: CELSO Corley RN Melanie L Lee, RN Melanie L 06/23/24 09:23:07 06/23/24 09:23:07 06/23/24 09:23:07 Entry 4 Case Attendee Mando Winter Role Performed Scrub Technologist Details Time In 06/23/24 08:21:00 Time Out 06/23/24 09:12:00 Procedure/Preference IR Aspiration/Drainage Card SN Last Modified By: CELSO Corley 06/23/24 09:23:07 Radiology Procedures- IR Entry 1 Procedure/Preference IR Aspiration/Drainage Actual Procedure aspiration drainage Card SN Primary Procedure Yes Primary Surgeon WALDO ESPARZA MD Anesthesia/Sedation None Type Additional Procedure Times Start 06/23/24 09:00:00 Stop 06/23/24 09:05:00 Specialty Service SN Radiology Procedure EBL 0 mL Last Modified By: CELSO Corley 06/23/24 09:22:54 Radiology Procedure Details - IR Entry 1 Radiology Sedation Case Times Sedation Total Time 0 minutes Radiology - Fluid/Drainage Radiology Contrast Contrast Used? No Radiology Flouroscopy Fluoroscopy Used? No Fluoro Time 0 Radiology Local Local Used? No Local Dose 0 Radiology Procedure Site Technologist Notes after reviewing CT images, Dr. Esparza says abcess reducing with wound vac. Last Modified By: CELSO Corley 06/23/24 09:24:03 General Case Data - IR Entry 1 Case Information Room AH IR CT Case Level IR Level 2 Wound Class None Specialty SN Radiology Procedure ASA Class None Diagnosis Preop Diagnosis sepsis Postop Same As Preop Yes Postop Diagnosis sepsis Last Modified By: CELSO Corley 06/23/24 08:31:52 Procedure Case Times- IR Entry 1 Patient In Procedure Patient In OR 06/23/24 08:21:00 Patient Out of OR 06/23/24 09:12:00 Procedure Start/Stop Procedure Start Time 06/23/24 09:00:00 Procedure Stop Time 06/23/24 09:05:00 Last Modified By: CELSO Corley 06/23/24 09:05:23 Case Comments Finalized By: CELSO Corley Document Signatures Signed By: CELSO Corley 06/23/24 09:[address] [facility] [id number] Note ORIGINAL HISTORY: ORDERING SYSTEM PROVIDED HISTORY: Reason for Exam: MRI pelvis showing 6.4 x 8.5 cm subcutaneous abscess, TECHNIQUE: Dose modulation, iterative reconstruction, and/or weight based adjustment of the mA/kV was utilized to reduce the radiation dose to as low as reasonably achievable. PROCEDURE: 1. Aborted CT guided percutaneous drainage catheter placement, supra teens right gluteal collection WINDROWER OPERATOR: Dr. 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 Under comparison the central portion measured 3.1 x 1.2 cm. According to documentation the wound VAC was placed 6 hours prior to the MRI. The collection is markedly smaller and too small to place a pigtail drain. It is being drained by the wound VAC. Given these findings, procedure was aborted. Findings were discussed with the patient. All questions were answered. COMPLICATION: None EBL: Minimal CONDITION: Stable IMPRESSION: 1. Marked reduction of fluid collection within the subcutaneous soft tissues of the right gluteal region secondary to wound VAC. The collection is too small to drain and percutaneous drainage is not necessary as the wound VAC is already draining the collection. The procedure was aborted. Interpreted by: Waldo Esparza MD Preliminary Report By: Waldo Esparza MD Electronically signed By Waldo Esparza MD Dictated Date: 06/23/2024 9:40:20 AM Prelim Date: 06/23/2024 9:45:31 AM Sign Date: 06/23/2024 9:45:31 AM Ordering Provider: [facility]08-04-2024 Nurse Progress note patient refused his dressing change at this time. Patient states he will allow his dressing change later tonight. Digitally Signed by CELSO Gray on 06/22/2024 06:[address] [facility] [id number] Infectious disease Progress note Date of Service 06/22/2024 Chief Complaint Scrotal/perineal abscess Subjective Patient afebrile without any leukocytosis Objective Vitals and Measurements T: 36.7 C (Oral) TMIN: 36.6 C (Oral) TMAX: 36.8 C (Oral) HR: 77 (Apical) RR: 18 BP: 152/89 SpO2: 97% Intake and Output 7AM Yesterday to 7AM Today Intake and Output (Last 24 hours) Intake Administration Information 118.03 Oral Intake 760.00 Output Urinary Catheter Output: 1600.00 Stool Count 3.00 Total Summary Total Intake 878.03 Total Output 1600.00 Fluid Balance -721.97 Physical Exam Patient is an elderly male noted to be laying in the bed he is alert and awake able to speak in full sentences he appears pale he is overall in no respiratory distress. Scrotal area is noted to have open wound at the base of the penis which is currently packed with dressing. Undersurface of the scrotal area still noted to have significant purulent yellowish appearing drainage soaking the dressing. Weight Dosing Weight: 109.5 kg (06/18/24) Medications Medications (20) Active Scheduled: (10) gabapentin 300 mg Capsule 300 mg 1 cap(s), Oral, qDay insulin glargine 15 unit(s) 0.15 mL, Subcutaneous (INT), qHS insulin lispro 100 units/mL Soln (3 mL) Give 0-15 units/dose, Subcutaneous, achs meropenem 1 gram(s), IV Piggyback, q12hr metoprolol succinate 100 mg ER tablet 100 mg 1 tab(s), Oral, BID omeprazole [address] capsule 40 mg 1 cap(s), Oral, BID rosuvastatin 10 mg tablet 10 mg 1 tab(s), Oral, qAM sodium hypochlorite topical 0.5% Soln 1 artemio, Topical, BID VANCOMYCIN -- pharmacy re-dosing by random level 1 EA, Miscellaneous, Daily Vancomycin Trough level 1 EA, Miscellaneous, q12hr Continuous: (1) heparin 25,000 unit(s) [9.13 unit(s)/kg/hr] + Dextrose 5% Premix Diluent 250 mL 250 mL, Intravenous, 10 mL/hr PRN: (9) acetaminophen 325 mg Tablet 650 mg 2 tab(s), Oral, q4h acetaminophen-HYDROcodone 325-10 mg tablet 1 tab(s), Oral, q4h acetaminophen-HYDROcodone 325-5 mg tablet 1 tab(s), Oral, q4h albuterol - ipratropium 2.5 mg-0.5 mg/3 mL Inhal Elena UD 3 mL, Inhalation, q4hRT dextrose 50% Solution Disp syringe 50 mL 12.5 gram(s) 25 mL, IV Push, AsDirected heparin 5,000 units/mL (1 mL) vial 4,000 unit(s) 0.8 mL, IV Push, q6h hydromorphone 1 mg/mL (1mL) INJ 1 mg 1 mL, IV Push, q6hr melatonin 3 mg tablet 3 mg 1 tab(s), Oral, qHS ondansetron 2 mg/ 1 mL 2 mL INJ 4 mg 2 mL, IV Push, q4h Lab Results 06/22 02:32 WBC: 7.5 Hgb: 7.6 L Hct: 23.2 L Platelet: 402 Neutrophil %: 61.1 Glucose Level: 172 H Sodium Level: 137 Potassium Level: 4.3 BUN: 28.0 H Creatinine Lvl (s): 2.04 H 06/21 05:55 WBC: 7.5 Hgb: 7.4 L Hct: 22.5 L Platelet: 427 Neutrophil %: 62.2 Glucose Level: 174 H Sodium Level: 139 Potassium Level: 4.4 BUN: 34.0 H Creatinine Lvl (s): 2.23 H Imaging Results and Diagnostics MRI Pelvis w/o Contrast Result Date: June 19, 2024 Verified By: CLINICAL STATEMENT: IMPRESSION: Deep soft tissue ulceration in the right buttocks region with subcutaneouswell-defined thick-walled fluid and gas collection that tracks along thegluteal muscle fascia and inferomedially along the ischial rectal fossaconsistent with subcutaneous abscess. Largest component measures at jayne st6.4 x 2.4 x 8.5 cm. There is no evidence of osteomyelitis. Featheryintramuscular edema within theright gluteal muscles, likelyinflammatory/reactive myositis, no well-defined intramuscular fluidcoll ections to suggest pyomyositis. Bilateral insertional gluteus minimus and medius tendinosis worse on the leftwith partial tearing of the left gluteus minimus at the anterior facet. Additional incidental findings as above. EKG No qualifying data available. 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 Patient laying in the bed comfortably alert and awake afebrile and without any leukocytosis. Scrotal exam is still notablefor yellowish purulent appearing drainage. Currently patient is awaiting evaluation by IR for abnormal MRI pelvis findings. ID to follow. Continue same antibiotics for now. Dr. Steel will start rounding in the morning. Digitally Signed by CIARA VIGIL MD on 06/22/2024 11:[address] [id number] Urology Progress note Date of Service 06/20/24 Chief Complaint Gluteal and perineal fluid collection Subjective Patient without acute events overnight. Wound care has been addressing his gluteal wound with a wound VAC. His scrotal incision continues to heal well with dissolving sutures. patient denies any significant pain currently. Objective Vitals and Measurements T: 36.6 C (Oral) TMIN: 36.4 C (Oral) TMAX: 36.6 C (Oral) HR: 78 RR: 16 BP: 140/84 SpO2: 96% Intake and Output 7AM Yesterday to 7AM Today Intake and Output (Last 24 hours) Intake Oral Intake 240.00 Administration Information 104.00 Output Urinary Catheter Output: 2325.00 Stool Count 1.00 Total Summary Total Intake 344.00 Total Output 2325.00 Fluid Balance -1980. Physical Exam GENERAL: 49 year old male that Appears to be in no acute distress. SKIN: No rashes noted. LUNGS: no use of accessory muscles. ABDOMEN: non distended MUSCULOSKELETAL: Moves all extremities x 2. NEUROLOGICAL: Awake and alert : Well-healing scrotal incision with healing by secondary intent of the more superior infrapubic area, dissolving Vicryl sutures removed easily at bedside, perineum without necrosis or cellulitis but with actively draining fluid from the area Weight Dosing Weight: 109.5 kg (06/18/24) Medications Medications (22) Active Scheduled: (12) clindamycin PMX 900 mg 50 mL, IV Piggyback, q8h gabapentin 300 mg Capsule 300 mg 1 cap(s), Oral, qDay insulin glargine 15 unit(s) 0.15 mL, Subcutaneous (INT), qHS insulin lispro 100 units/mL Soln (3 mL) Give 0-15 units/dose, Subcutaneous, achs meropenem 1 gram(s), IV Piggyback, q12hr metoprolol succinate 100 mg ER tablet 100 mg 1 tab(s), Oral, BID omeprazole [address] capsule 40 mg 1 cap(s), Oral, BID rosuvastatin 10 mg tablet 10 mg 1 tab(s), Oral, qAM sodium ferric gluconate complex 250 mg 20 mL, IV Piggyback, qDay sodium hypochlorite topical 0.5% Soln 1 artemio, Topical, BID VANCOMYCIN -- pharmacy re-dosing by random level 1 EA, Miscellaneous, Daily Vancomycin Trough level 1 EA, Miscellaneous, q12hr Continuous: (1) heparin 25,000 unit(s) + Dextrose 5% Premix Diluent 250 mL 250 mL, Intravenous, 10 mL/hr PRN: (9) acetaminophen 325 mg Tablet 650 mg 2 tab(s), Oral, q4h acetaminophen-HYDROcodone 325-10 mg tablet 1 tab(s), Oral, q4h acetaminophen-HYDROcodone 325-5 mg tablet 1 tab(s), Oral, q4h albuterol - ipratropium 2.5 mg-0.5 mg/3 mL Inhal Elena UD 3 mL, Inhalation, q4hRT dextrose 50% Solution Disp syringe 50 mL 12.5 gram(s) 25 mL, IV Push, AsDirected heparin 5,000 units/mL (1 mL) vial 4,000 unit(s) 0.8 mL, IV Push, q6h hydromorphone 1 mg/mL (1mL) INJ 1 mg 1 mL, IV Push, q6hr melatonin 3 mg tablet 3 mg 1 tab(s), Oral, qHS ondansetron 2 mg/ 1 mL 2 mL INJ 4 mg 2 mL, IV Push, q4h Lab Results 06/20 02:47 WBC: 7.9 Hgb: 7.5 L Hct: 22.2 L Platelet: 428 Neutrophil %: 57.0 Glucose Level: 138 H Sodium Level: 138 Potassium Level: 4.1 BUN: 39.0 H Creatinine Lvl (s): 2.59 H 06/19 19:25 Hgb: 7.9 L Hct: 23.7 L 06/19 13:00 Hgb: 7.6 L Hct: 22.8 L 06/19 03:54 WBC: 8.7 Hgb: 7.1 L Hct: 21.2 L Platelet: 418 Neutrophil %: 56.5 Glucose Level: 73 Sodium Level: 134 L Potassium Level: 4.2 BUN: 52.0 H Creatinine Lvl (s): 2.74 H EKG No qualifying data available. Assessment/Plan Orders: Communication Order (continuous), 06/20/24 11:15:00 EDT, Patient may resume diet orders as he will not be going to IR for drain insertion., Constant order Scrotal fluid collection The patient is currently stable from a urological standpoint. Situation discussed with interventional radiology who does not appreciate a fluid collection for drainage at this point. Given the scrotum and perineum are actively draining fluid, I would advocate for wound care to go ahead and address this area as well as the gluteal area. Patient to follow-up with urology as an outpatient to assess healing. Digitally Signed by NATA BENZ DO on 06/20/2024 12:[address] [facility] [id number] [facility] Progress note Date of Service 06/20/2024 Chief Complaint Decubitus ulcer Subjective No overnight events. Patient resting this morning. Wound VAC was applied yesterday by with the wound care team. He has no issues this morning. Patient is tolerating a diet. He denies any abdominal pain. Objective Vitals and Measurements T: 36.5 C (Oral) TMIN: 36.4 C (Oral) TMAX: 36.6 C (Oral) HR: 83 RR: 16 BP: 137/88 SpO2: 96% Intake and Output 7AM Yesterday to 7AM Today Intake and Output (Last 24 hours) Intake Oral Intake 720.00 Administration Information 104.00 Output Urinary Catheter Output: 2325.00 Stool Count 1.00 Total Summary Total Intake 824.00 Total Output 2325.00 Fluid Balance -1501.00 Physical Exam General: A+Ox3 CV: RRR, no MRG Resp: CTAB Abd: Soft, ND, NT, +BS. Lower abdominal and scrotal wounds healing well. Buttock wound with wound VAC placed. No air leak noted. Weight Dosing Weight: 109.5 kg (06/18/24) Medications Medications (20) Active Scheduled: (10) clindamycin PMX 900 mg 50 mL, IV Piggyback, q8h gabapentin 300 mg Capsule 300 mg 1 cap(s), Oral, qDay insulin glargine 15 unit(s) 0.15 mL, Subcutaneous (INT), qHS insulin lispro 100 units/mL Soln (3 mL) Give 0-15 units/dose, Subcutaneous, achs meropenem 1 gram(s), IV Piggyback, q12hr metoprolol succinate 100 mg ER tablet 100 mg 1 tab(s), Oral, BID omeprazole [address] capsule 40 mg 1 cap(s), Oral, BID rosuvastatin 10 mg tablet 10 mg 1 tab(s), Oral, qAM sodium hypochlorite topical 0.5% Soln 1 artemio, Topical, BID VANCOMYCIN -- pharmacy re-dosing by random level 1 EA, Miscellaneous, Daily Continuous: (1) heparin 25,000 unit(s) [9.13 unit(s)/kg/hr] + Dextrose 5% Premix Diluent 250 mL 250 mL, Intravenous, 10 mL/hr PRN: (9) acetaminophen 325 mg Tablet 650 mg 2 tab(s), Oral, q4h acetaminophen-HYDROcodone 325-10 mg tablet 1 tab(s), Oral, q4h acetaminophen-HYDROcodone 325-5 mg tablet 1 tab(s), Oral, q4h albuterol - ipratropium 2.5 mg-0.5 mg/3 mL Inhal Elena UD 3 mL, Inhalation, q4hRT dextrose 50% Solution Disp syringe 50 mL 12.5 gram(s) 25 mL, IV Push, AsDirected heparin 5,000 units/mL (1 mL) vial 4,000 unit(s) 0.8 mL, IV Push, q6h hydromorphone 1 mg/mL (1mL) INJ 1 mg 1 mL, IV Push, q6hr melatonin 3 mg tablet 3 mg 1 tab(s), Oral, qHS ondansetron 2 mg/ 1 mL 2 mL INJ 4 mg 2 mL, IV Push, q4h Lab Results 06/20 02:47 WBC: 7.9 Hgb: 7.5 L Hct: 22.2 L Platelet: 428 Neutrophil %: 57.0 Glucose Level: 138 H Sodium Level: 138 Potassium Level: 4.1 BUN: 39.0 H Creatinine Lvl (s): 2.59 H 06/19 19:25 Hgb: 7.9 L Hct: 23.7 L 06/19 13:00 Hgb: 7.6 L Hct: 22.8 L 06/19 03:54 WBC: 8.7 Hgb: 7.1 L Hct: 21.2 L Platelet: 418 Neutrophil %: 56.5 Glucose Level: 73 Sodium Level: 134 L Potassium Level: 4.2 BUN: 52.0 H Creatinine Lvl (s): 2.74 H EKG No qualifying data available. Assessment/Plan Patient is a 49-year-old male with a cubitus ulcer, Overall patient is doing well. Continue medical management. No surgical inventions are planned at this time. Appreciate wound care evaluation recommendations. Will sign off, please call if needed. Nofollow-up needed. Digitally Signed by WILLA RODARTE MD on 06/20/2024 07:[address] [facility] [id number] Note ORIGINAL EXAMINATION: MRI OF THE PELVIS WITHOUT CONTRAST, 06/19/2024 7:22 pm TECHNIQUE: Multiplanar multisequence MRI of the pelvis was performed without the administration of intravenous contrast. Coronal and axial STIR and T1 images were obtained. Sagittals were not obtained. COMPARISON: CT abdomen and pelvis dated 06/18/2024 HISTORY: ORDERING SYSTEM PROVIDED HISTORY: Reason for Exam: osteomyelitis, abscess FINDINGS: Diffuse bone demineralization. There is no evidence of acute fracture, osteonecrosis or transient osteoporosis. No suspicious marrow lesion is noted. Subcutaneous stranding/edema in the right buttocks region with deep soft tissue ulceration measuring approximately 3.7cm transverse with well-defined thick-walled subcutaneous fluid and gas collection that tracks laterally along the gluteal musculature fascia and infero medially along the ischial rectal fossa. Largest component measures at least 6.4 x 2.4 by 8.5 cm with additional smaller areas of fluid collection. Feathery intramuscular edema within the right gluteal muscles, no well-defined intramuscular fluid collections to suggest pyomyositis. Mild degenerative changes the pubic symphysis. Lower lumbar spondylosis and facet arthrosis. Moderate degenerative changes of the sacroiliac joints. Moderate femoroacetabular degenerative changes, worse on the right at the superolateral joint space where there is subchondral sclerosis and cystic change.. Loss of the normal concavity of the anterior femoral head neck junctions bilaterally with subchondral cystic change on the right suggesting cam deformity. The proximal attachments of the rectus femoris, iliotibial bands and tensor fascia latae are intact. The hamstring tendons at their origins are intact with tendinosis. Bilateral insertional gluteus minimus and medius tendinosis, worse on the left with partial tearing of the left gluteus minimus at the anterior facet (series 4, image 25). The iliopsoas tendon insertions are preserved. There is no iliopsoas or greater trochanteric bursitis. Please note that study was not protocoled for assessment of internal derangement of the hips. Trace femoroacetabular joint fluid bilaterally. The imaged portions of the femoral, sciatic and obturator neurovascular bundles appear intact. Nonspecific bilateral superficial inguinal adenopathy. Hernandez catheter within the bladder. Bladder wall is circumferentially thickened, may be related to under distension, correlate clinically with urinalysis. There is no pelvic free fluid. Diffuse muscle atrophy. Mild left gluteal subcutaneous edema. IMPRESSION: Deep soft tissue ulceration in the right buttocks region with subcutaneous well-defined thick-walled fluid and gas collection that tracks along the gluteal muscle fascia and inferomedially along the ischial rectal fossa consistent with subcutaneous abscess. Largest component measures at least 6.4 x 2.4 x 8.5 cm. There is no evidence of osteomyelitis. Feathery intramuscular edema within the right gluteal muscles, likely inflammatory/reactive myositis, no well-defined intramuscular fluid collections to suggest pyomyositis. Bilateral insertional gluteus minimus and medius tendinosis worse on the left with partial tearing of the left gluteus minimus at the anterior facet. Additional incidental findings as above. Interpreted by: Vilma Hill Preliminary Report By: Vilma Hill Electronically signed By Vilma Hill Dictated Date: 06/20/2024 9:53:57 AM Prelim Date: 06/20/2024 10:13:17 AM Sign Date: 06/20/2024 10:13:17 AM Ordering Provider: ILEANA [facility]08-01-2024 Nurse Progress note ACNS charting reviewed, bedside nurse present for medication administration. Digitally Signed by Maricel Zelaya RN on 06/19/2024 03:[address] [facility] [id number] Note Reason for Consultation Admission From: ECF Consult Skin Team re: Pressure Staging - Ordered -- 06/18/24 16:33:18 EDT Skin Team Findings Vitals and Measurements T: 36.4 C (Oral) TMIN: 36.4 C (Oral) TMAX: 36.8 C (Oral) HR: 80 (Monitored) RR: 15 BP: 139/90 SpO2:97% HT: 188 cm WT: 109.5 kg BMI: 30.98 Pressure Area Details ------Pressure Area------ Ischial tuberosity Right - Pressure Area Cleansing: Cleaned with sterile saline Ischial tuberosity Right - Pressure Area Description: Granulation, Necrotic tissue, slough, Tunneling 8.5cm at 11 O'Clock, Undermining from 10-3 O'Clock with deepest area 3.5 cm at 2 'Oclock Ischial tuberosity Right - Pressure Area Dressing Description: Changed Ischial tuberosity Right - Pressure Area Dressing Type: Moist saline gauze Ischial tuberosity Right - Pressure Area Surrounding Tissue: Erythema Ischial tuberosity Right - Pressure Ulcer Present On Admission: Yes Ischial tuberosity Right(Lower buttocks) - Pressure Ulcer Stage: Stage 4 ------Pressure Area Measurements------ Ischial tuberosity Right - Pressure Area Depth: 7.5 cm Ischial tuberosity Right - Pressure Area Length: 6 cm Ischial tuberosity Right - Pressure Area Width: 5 cm ------Incision/Wound------ Scrotum - Incision, Wound Dressing/Activity: Assessed Scrotum - Incision, Wound Dressing: Wet to Dry Scrotum - Skin Abnormality Type: Surgical incision Scrotum - Wound Exudate Amount: Scant This wound is s/p surgical debridement for Claire's gangrene including penile shaft and testiclesthat is being followed outpatient at a wound care center per patient. Assessments and Recommendations ------Assessments------ Current Skin/Wound Interventions: Hospital bed, Turn and position system, Turn and reposition every2 hours Present For Wound Observation: Nurse, Student ------Recommendations------ Recommended Skin/Wound Interventions: Low air loss mattress(Treatment), Seat cushion, Turn and reposition every 2 hours, Other: Dr. Parnell, Plastic consulted for wound care management Problem List/Past Medical History Ongoing Diabetes GERD (gastroesophageal reflux disease) High cholesterol Digitally Signed by CELSO Olivas February06/19/2024 01:[address] [facility] [id number] Infectious disease Consult note Date of Service 42 years June 19, 2024 Reason for Consultation Infected decubitus ulcer Referring Physician Dr. Orozco History of Present Illness Patient is a 49-year-old male with past medical history of Claire's gangrene, nonischemic cardiomyopathy EF 25 to 30%, EF is now improved, paroxysmal atrial fibrillation, CKD, type 2 diabetes mellitus hypertension hyperlipidemia, chronic Hernandez catheter, apparently presented to outside hospital on06/18/2024 and subsequently transferred here. Patient reports to me that he resides at a nursing facility, and that his hemoglobin was low at 6 [place] CT abdomen and pelvis at the outside hospital which was abnormal. Reviewed outside records in paper chart, CT showed 2 fluid collections close to patient's scrotal/perineal area and also in relation to the gluteal area. Due to abnormal CT scan and patient being hypotensive with the leukocytosis patient was transferred here and currently admitted to surgical ICU. Patient additionally reports to me that he has had right gluteal ulcer for which she had a debridement performed at the wound care in mid May. Patient currently admitted to surgical ICU. ID consulted due to abnormal CT scan findings. Review of Systems 12 point review of systems is reviewed and is negative except for noted above. Physical Exam Vitals and Measurements T: 36.4 C (Oral) TMIN: 36.4 C (Oral) TMAX: 36.8 C (Oral) HR: 80 (Monitored) RR: 15 BP: 139/90 SpO2:97% HT: 188 cm WT: 109.5 kg BMI: 30.98 Weight Dosing Weight: 109.5 kg (06/18/24) General Appearance: Patient is laying in the bed not in any apparent distress alert awake oriented to self and surroundings HEENT: Atraumatic normocephalic, EOMI Neck: Neck supple oral mucosa moist Cardiac: first and second heart sounds audible Lungs: Clear to auscultation bilaterally Abdomen: Soft nontender nondistended bowel sounds positive Scrotal exam is notable for open wound at the base of penis, there is some yellowish drainage notedat the base of the wound. Patient on the scrotal area is noted to have sutures in place. On the underneath surface of the scrotal area close to the perineum patient is noted to have 2 small less than0.5 cm openings both of which are draining yellow serosanguineous thin appearing drainage at this is soaking the dressing. Overlying right gluteal area patient is noted to have an irregular appearingabout 4 x 5 cm ulceration at this has some yellow slough is at the base and multiple bleeders are noted as well. Extremities: No lower extremity edema Neurological: Grossly non focal Skin: No rash Lab Results 06/19 03:54 WBC: 8.7 Hgb: 7.1 L Hct: 21.2 L Platelet: 418 Neutrophil %: 56.5 Glucose Level: 73 Sodium Level: 134 L Potassium Level: 4.2 BUN: 52.0 H Creatinine Lvl (s): 2.74 H 06/18 18:30 WBC: 10.0 Hgb: 7.7 L Hct: 22.7 L Platelet: 433 Neutrophil %: 67.4 Glucose Level: 103 Sodium Level: 133 L Potassium Level: 4.3 BUN: 54.0 H Creatinine Lvl (s): 2.75 H Assessment/Plan Patient is a 49-year-old male with history of Claire's gangrene, nonischemic cardiomyopathy EF 25to 30%, EF is now improved, paroxysmal atrial fibrillation, CKD, type 2 diabetes mellitus hypertension hyperlipidemia, chronic Hernandez catheter, apparently presented to outside hospital on 06/18/2024 and subsequently transferred here. Patient has had history of Claire's gangrene back in March at which time he had underwent debridement culture data was polymicrobial showing group B strep, Serratia, Enterococcus faecalis, staph Epi and lactobacillus species. Patient was treated with antibiotics at this time and subsequently discharged. As an outpatient he was seeing wound care. Following discharge from the hospital he developed right gluteal decubitus ulceration, patient reports that he had debridement of the right gluteal ulcer back in mid May. Since presentation right gluteal ulceration is debrided by general surgery service at bedside. Currently patient presents to outlying emergency room due to low hemoglobin which was noted at nursing facility. Patient had CT abdomen and pelvis obtained at [place] which has shown to fluid collections close to the scrotal/gluteal area. Clinical examination is notable for yellow thin serosanguineous drainage which is coming out from the wound at the base of the penis and also from 2 separate openings which are present on the underneath surface of the scrotum. Area seems infected Recommend drainage of fluid collection seen on CT scan which are there in relation to the scrotum/perineal area. General surgery and urology services are on board plastic surgery also evaluated the patient. Recommend broad-spectrum antibiotics at this time since patient is penicillin allergic we will recommend continuation of Vanco and meropenem. ID to follow. 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 Medications Inpatient clindamycin, 900 mg= 50 mL, IV Piggyback, q8h Dakins Full Strength 0.5% topical solution, 1 artemio, Topical, BID Dextrose 50% IV Push, 12.5 gram(s)= 25 mL, IV Push, AsDirected, PRN Dilaudid, 1 mg= 1 mL, IV Push, q6hr, PRN DuoNeb, 3 mL, Inhalation, q4hRT, PRN gabapentin, 300 mg= 1 cap(s), Oral, qDay Heparin for IV 25,000 unit(s) [9.13 unit(s)/kg/hr] + Dextrose 5% Premix Diluent 250 mL Heparin HBW CARDIAC Bolus 5000 units/mL, 4000 unit(s)= 0.8 mL, IV Push, q6h, PRN HumaLOG 100 units/mL subcutaneous solution, Give 0-15 units/dose, Subcutaneous, achs Lantus, 15 unit(s)= 0.15 mL, Subcutaneous (INT), qHS melatonin, 3 mg= 1 tab(s), Oral, qHS, PRN meropenem [place] 325- 5 mg oral tablet, 1 tab(s), Oral, q4h, PRN [place] 325-10 mg oral tablet, 1 tab(s), Oral, q4h, PRN omeprazole, 40 mg= 1 cap(s), Oral, BID rosuvastatin, 10 mg= 1 tab(s), Oral, qAM Toprol-XL, 100 mg= 1 tab(s), Oral, BID Tylenol, 650 mg= 2 tab(s), Oral, q4h, PRN Vancomycin - RANDOM level reminder, 1 EA, Miscellaneous, q12hr VANCOMYCIN -- pharmacy re-dosing by random level, 1 EA, Miscellaneous, Daily Zofran, 4 mg= 2 mL, IV Push, q4h, PRN Home bacitracin topical ointment, 1 artemio, Topical, BID bumetanide 1 mg oral tablet, 1 mg= 1 tab(s), Oral, BID, 2 refills Dakins Half Strength 0.25% topical solution, 1 artemio, Topical, BID Eliquis 5 mg oral tablet, 5 mg= 1 tab(s), Oral, BID, 4 refills emollients, topical, 1 artemio, Topical, BID gabapentin 100 mg oral capsule, 300 mg= 3 cap(s), Oral, qDay glimepiride 4 mg oral tablet, 8 mg= 2 tab(s), Oral, with breakfast HumaLOG 100 units/mL subcutaneous solution, Give 0-10 units/dose, Subcutaneous, TIDAC Lantus Solostar Pen 100 units/mL 3 mL Pen, 30 unit(s), Subcutaneous, qHS lidocaine 4% patch, Transdermal, q24h omeprazole 40 mg oral delayed release capsule, 40 mg= 1 cap(s), Oral, BID rosuvastatin 10 mg oral tablet, 10 mg= 1 tab(s), qDay Toprol-XL 100 mg oral tablet, extended release, 100 mg= 1 tab(s), Oral, BID, 3 refills Allergies ampicillin Unknown penicillin Unknown Social History Smoking Status - 08/17/2018 Current every day smoker Alcohol - No Risk, 09/19/2020 Use: Current. Frequency: 1-2 times per year., 07/07/2023 Home/Environment Living situation: Home/Independent. Safe place to go: Yes. Financial concerns: No. Domestic Concerns: None., 03/08/2024 Nutrition/Health Type of diet: Regular. Appetite Good. Eating Difficulties None., 03/08/2024 Substance Abuse - Denies Substance Abuse, 08/17/2018 Use: Never., 04/30/2019 Tobacco - No Risk, 09/19/2020 Tobacco Use: 10 or more cigarettes (1/2 pack or more)/day in last 30 days. Type: Cigarettes., 04/30/2019 Family History Patient was adopted Alcohol abuse: Father. Diabetes: Father. Health Status Family Member(s) Immunizations tetanus/diphth/pertuss (Tdap) adult/adol: 0.5 mL (08/17/18) Digitally Signed by CIARA VIGIL MD on 06/19/2024 02:[address] [facility] 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 in March of this year he had extensive necrotic tissues in the groin over the penis or around the perineum into the scrotal area which was extensively necrotic he had multiple debridements done by the urologist as well as the general surgeons patient had slough and necrotic tissue present in the perineum and suprapubic area I have taken him to surgery on May 05, 2024 did extensive debridement close the scrotal wound by debriding the edges undermining the skin on the scrotum. Patient also had a wound on the suprapubic pubic area which was debrided and closed primarily with the discharge from the hospital in April of this year and has been followed by the wound center in [place] patient also is in a long-term being treated. He had developed a pressure ulcer on the right gluteal area which was not present when the patient was here and has some slough necrotic tissue present patient also has an open area on the suprapubic area which is very clean and healthy looking. Patient is now was brought to [facility] for further care for localizedabscess which was noticed CT scan as well as an abscess that was present. There was a large amount of necrotic tissue present on the right gluteal area. 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 Wound has been treated at the nursing wound care in [place] which seems to be improving gradually. But has developed a pressure ulcer in the right glutealarea with slough and necrotic tissue present Physical Exam Vitals and Measurements T: 36.5 C (Oral) TMIN: 36.5 C (Oral) TMAX: 36.8 C (Oral) HR: 82 (Apical) RR: 16 BP: 121/75 SpO2: 98% HT: 188 cm WT: 109.5 kg BMI: 30.98 Weight Dosing Weight: 109.5 kg (06/18/24) Patient is alert and awake patient was recently operated bedside by Dr. Rodarte who did extensive debridement of the necrotic tissue present to the right gluteal area which appears to be fairly cleanat this time it measures about 5 x 5 cm with a depth of about 6 cm there is some slough present which is very closed adherent to the underlying muscle. Most of the necrotic tissue has been removed. It was no evidence of bleeding or abscess formation noticed that he was examined digitally and extends deep into the subcutaneous tissue for about 6 to 7 cm and area. There is also an open wound on the suprapubic area measuring about 5 x 6 cm in size with a depth ofabout 3 cm it appears to be fairly clean with no evidence of any necrotic tissue present. Scrotal wound is now completely healed there is some stitches of there that needs to be removed. Lab Results 06/19 03:54 WBC: 8.7 Hgb: 7.1 L Hct: 21.2 L Platelet: 418 Neutrophil %: 56.5 Glucose Level: 73 Sodium Level: 134 L Potassium Level: 4.2 BUN: 52.0 H Creatinine Lvl (s): 2.74 H 06/18 18:30 WBC: 10.0 Hgb: 7.7 L Hct: 22.7 L Platelet: 433 Neutrophil %: 67.4 Glucose Level: 103 Sodium Level: 133 L Potassium Level: 4.3 BUN: 54.0 H Creatinine Lvl (s): 2.75 H Assessment/Plan Recommended since the gluteal pressure ulcer is now has been debrided we can start a wound VAC therapy on it at 150 mmHg to be changed 3 times a week and that should improve the condition quite a bitand may cause the wound to heal fairly well without any surgical intervention. On the superbly pubic area is a difficult area to put a wound VAC on so I recommended we can treat this with Dakin's solution for the time being and may be will start him on Aquacel Ag at a later time. 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 Medications Inpatient clindamycin, 900 mg= 50 mL, IV Piggyback, q8h Dextrose 50% IV Push, 12.5 gram(s)= 25 mL, IV Push, AsDirected, PRN Dilaudid, 1 mg= 1 mL, IV Push, q6hr, PRN DuoNeb, 3 mL, Inhalation, q4hRT, PRN gabapentin, 300 mg= 1 cap(s), Oral, qDay Heparin for IV 25,000 unit(s) [9.13 unit(s)/kg/hr] + Dextrose 5% Premix Diluent 250 mL Heparin HBW CARDIAC Bolus 5000 units/mL, 4000 unit(s)= 0.8 mL, IV Push, q6h, PRN HumaLOG 100 units/mL subcutaneous solution, Give 0-15 units/dose, Subcutaneous, achs Lantus, 15 unit(s)= 0.15 mL, Subcutaneous (INT), qHS melatonin, 3 mg= 1 tab(s), Oral, qHS, PRN meropenem [place] 325- 5 mg oral tablet, 1 tab(s), Oral, q4h, PRN [place] 325-10 mg oral tablet, 1 tab(s), Oral, q4h, PRN omeprazole, 40 mg= 1 cap(s), Oral, BID rosuvastatin, 10 mg= 1 tab(s), Oral, qAM Toprol-XL, 100 mg= 1 tab(s), Oral, BID Tylenol, 650 mg= 2 tab(s), Oral, q4h, PRN Vancomycin - RANDOM level reminder, 1 EA, Miscellaneous, q12hr VANCOMYCIN -- pharmacy re-dosing by random level, 1 EA, Miscellaneous, Daily Zofran, 4 mg= 2 mL, IV Push, q4h, PRN Home bacitracin topical ointment, 1 artemio, Topical, BID bumetanide 1 mg oral tablet, 1 mg= 1 tab(s), Oral, BID, 2 refills Dakins Half Strength 0.25% topical solution, 1 artemio, Topical, BID Eliquis 5 mg oral tablet, 5 mg= 1 tab(s), Oral, BID, 4 refills emollients, topical, 1 artemio, Topical, BID gabapentin 100 mg oral capsule, 300 mg= 3 cap(s), Oral, qDay glimepiride 4 mg oral tablet, 8 mg= 2 tab(s), Oral, with breakfast HumaLOG 100 units/mL subcutaneous solution, Give 0-10 units/dose, Subcutaneous, TIDAC Lantus Solostar Pen 100 units/mL 3 mL Pen, 30 unit(s), Subcutaneous, qHS lidocaine 4% patch, Transdermal, q24h omeprazole 40 mg oral delayed release capsule, 40 mg= 1 cap(s), Oral, BID rosuvastatin 10 mg oral tablet, 10 mg= 1 tab(s), qDay Toprol-XL 100 mg oral tablet, extended release, 100 mg= 1 tab(s), Oral, BID, 3 refills Allergies ampicillin Unknown penicillin Unknown Social History Smoking Status - 08/17/2018 Current every day smoker Alcohol - No Risk, 09/19/2020 Use: Current. Frequency: 1-2 times per year., 07/07/2023 Home/Environment Living situation: Home/Independent. Safe place to go: Yes. Financial concerns: No. Domestic Concerns: None., 03/08/2024 Nutrition/Health Type of diet: Regular. Appetite Good. Eating Difficulties None., 03/08/2024 Substance Abuse - Denies Substance Abuse, 08/17/2018 Use: Never., 04/30/2019 Tobacco - No Risk, 09/19/2020 Tobacco Use: 10 or more cigarettes (1/2 pack or more)/day in last 30 days. Type: Cigarettes., 04/30/2019 Family History Patient was adopted Alcohol abuse: Father. Diabetes: Father. Health Status Family Member(s) Immunizations tetanus/diphth/pertuss (Tdap) adult/adol: 0.5 mL (08/17/18) Digitally Signed by FRANCESCA PARNELL MD on 06/19/2024 11:[address] [facility] [address] [id number] Surgery Consult note Date of Service Reason for Consultation Right gluteal abscess Referring Physician Dr. Rico History of Present Illness Information for this H&P obtained by review of documentations and physician notes. This is a shared split visit between myself and Dr. Rodarte. 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 While in the emergency room he underwent a CT scan of abdomen pelvis with contrast that showed a 11 cm x 2.89 x 1.7 cm heterogeneous fluid collection with air overlying the right gluteal musculature and also 2.8 x 1.5 x 2.9 cm heterogeneous fluid collection in the l eft side of the perineum and inferior scrotum per the interpretation of the radiologist. Per review of the report he was also noted to have a low blood pressure and was given IV fluids where he responded appropriately. He was also started on IV antibiotics vancomycin, Zosyn and clindamycin given his past medical history of foreigners gangrene. The patient was then transferred to [facility] for definitive care Patient has been being seen and treated at the wound center in [place] for his sacral ulcer. He reports that he was seen there last week where at that time he did have debridement completed. He reports that he returned back however he had been experiencing nausea and vomiting and did not have any treatment completed. He currently denies any fever, chills. He denies any pain or tenderness upon palpation. Review of Systems pertinent positives described above and otherwise negative. Physical Exam Vitals and Measurements T: 36.5 C (Oral) TMIN: 36.5 C (Oral) TMAX: 36.8 C (Oral) HR: 82 (Apical) RR: 16 BP: 121/75 SpO2: 98% HT: 188 cm WT: 109.5 kg BMI: 30.98 Weight Dosing Weight: 109.5 kg (06/18/24) General: Awake and alert and in no apparent distress. Able to answer questions and speak in full sentences. Supine in bed. Sitting upright. HEENT: Mucous membranes moist and pink. Sclerae anicteric. PERRLA. Heart: Regular rate and rhythm. S1-S2 are present. Lungs: Chest rise symmetrical. Respirations unlabored. Clear to auscultation bilaterally. Buttocks: See Dr. Rodarte addendum Extremities: Freely moving. Skin: Normal color for ethnicity. No pallor or diaphoresis. No jaundice. Psychiatric: Calm and cooperative. 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 General surgery has been consulted due to the recent CT scan that showed a 11 cm x 2.89 x1.7 cm heterogeneous fluid collection with air overlying the right gluteal musculature. Dr. Rodarte to review CT scan findings. Vital signs, laboratory data and I's/O have been reviewed. Patient has remained afebrile since admission. WBC 8.7, he has had no leukocytosis, hemoglobin 7.1, platelets 418. Plan: 1. Abnormal CT results of right gluteal concerning for abscess Low concern for I&D needed at this time. Please Dr. Rodarte addendum to follow for examination of right gluteal ulcer and wound. -Wet-to-dry dressing to right gluteal at this time until seen and evaluated by Dr. Parnell. This document was dictated with voice recognition software and may contain grammatical errors 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 Medications Inpatient clindamycin, 900 mg= 50 mL, IV Piggyback, q8h Dextrose 50% IV Push, 12.5 gram(s)= 25 mL, IV Push, AsDirected, PRN Dilaudid, 1 mg= 1 mL, IV Push, q6hr, PRN DuoNeb, 3 mL, Inhalation, q4hRT, PRN gabapentin, 300 mg= 1 cap(s), Oral, qDay HumaLOG 100 units/mL subcutaneous solution, Give 0-15 units/dose, Subcutaneous, achs Lantus, 15 unit(s)= 0.15 mL, Subcutaneous (INT), qHS melatonin, 3 mg= 1 tab(s), Oral, qHS, PRN meropenem [place] 325- 5 mg oral tablet, 1 tab(s), Oral, q4h, PRN [place] 325-10 mg oral tablet, 1 tab(s), Oral, q4h, PRN omeprazole, 40 mg= 1 cap(s), Oral, BID rosuvastatin, 10 mg= 1 tab(s), Oral, qAM Toprol-XL, 100 mg= 1 tab(s), Oral, BID Tylenol, 650 mg= 2 tab(s), Oral, q4h, PRN Vancomycin - RANDOM level reminder, 1 EA, Miscellaneous, q12hr VANCOMYCIN -- pharmacy re-dosing by random level, 1 EA, Miscellaneous, Daily Zofran, 4 mg= 2 mL, IV Push, q4h, PRN Home bacitracin topical ointment, 1 artemio, Topical, BID bumetanide 1 mg oral tablet, 1 mg= 1 tab(s), Oral, BID, 2 refills Dakins Half Strength 0.25% topical solution, 1 artemio, Topical, BID Eliquis 5 mg oral tablet, 5 mg= 1 tab(s), Oral, BID, 4 refills emollients, topical, 1 artemio, Topical, BID gabapentin 100 mg oral capsule, 300 mg= 3 cap(s), Oral, qDay glimepiride 4 mg oral tablet, 8 mg= 2 tab(s), Oral, with breakfast HumaLOG 100 units/mL subcutaneous solution, Give 0-10 units/dose, Subcutaneous, TIDAC Lantus Solostar Pen 100 units/mL 3 mL Pen, 30 unit(s), Subcutaneous, qHS lidocaine 4% patch, Transdermal, q24h omeprazole 40 mg oral delayed release capsule, 40 mg= 1 cap(s), Oral, BID rosuvastatin 10 mg oral tablet, 10 mg= 1 tab(s), qDay Toprol-XL 100 mg oral tablet, extended release, 100 mg= 1 tab(s), Oral, BID, 3 refills Allergies ampicillin Unknown penicillin Unknown Social History Smoking Status - 08/17/2018 Current every day smoker Alcohol - No Risk, 09/19/2020 Use: Current. Frequency: 1-2 times per year., 07/07/2023 Home/Environment Living situation: Home/Independent. Safe place to go: Yes. Financial concerns: No. Domestic Concerns: None., 03/08/2024 Nutrition/Health Type of diet: Regular. Appetite Good. Eating Difficulties None., 03/08/2024 Substance Abuse - Denies Substance Abuse, 08/17/2018 Use: Never., 04/30/2019 Tobacco - No Risk, 09/19/2020 Tobacco Use: 10 or more cigarettes (1/2 pack or more)/day in last 30 days. Type: Cigarettes., 04/30/2019 Family History Patient was adopted Alcohol abuse: Father. Diabetes: Father. Health Status Family Member(s) Immunizations tetanus/diphth/pertuss (Tdap) adult/adol: 0.5 mL (08/17/18) Digitally Signed by IRIS VILLALPANDO on 06/19/2024 10:[address] [facility] [id number] Surgery Consult note Date of Service Reason for Consultation Right gluteal abscess Referring Physician Dr. Rico History of Present Illness Information for this H&P obtained by review of documentations and physician notes. This is a shared split visit between myself and Dr. Rodarte. 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 While in the emergency room he underwent a CT scan of abdomen pelvis with contrast that showed a 11 cm x 2.89 x 1.7 cm heterogeneous fluid collection with air overlying the right gluteal musculature and also 2.8 x 1.5 x 2.9 cm heterogeneous fluid collection in the l eft side of the perineum and inferior scrotum per the interpretation of the radiologist. Per review of the report he was also noted to have a low blood pressure and was given IV fluids where he responded appropriately. He was also started on IV antibiotics vancomycin, Zosyn and clindamycin given his past medical history of foreigners gangrene. The patient was then transferred to [facility] for definitive care Patient has been being seen and treated at the wound center in [place] for his sacral ulcer. He reports that he was seen there last week where at that time he did have debridement completed. He reports that he returned back however he had been experiencing nausea and vomiting and did not have any treatment completed. He currently denies any fever, chills. He denies any pain or tenderness upon palpation. Review of Systems pertinent positives described above and otherwise negative. Physical Exam Vitals and Measurements T: 36.5 C (Oral) TMIN: 36.5 C (Oral) TMAX: 36.8 C (Oral) HR: 82 (Apical) RR: 16 BP: 121/75 SpO2: 98% HT: 188 cm WT: 109.5 kg BMI: 30.98 Weight Dosing Weight: 109.5 kg (06/18/24) General: Awake and alert and in no apparent distress. Able to answer questions and speak in full sentences. Supine in bed. Sitting upright. HEENT: Mucous membranes moist and pink. Sclerae anicteric. PERRLA. Heart: Regular rate and rhythm. S1-S2 are present. Lungs: Chest rise symmetrical. Respirations unlabored. Clear to auscultation bilaterally. Buttocks: See Dr. Rodarte addendum Extremities: Freely moving. Skin: Normal color for ethnicity. No pallor or diaphoresis. No jaundice. Psychiatric: Calm and cooperative. 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 General surgery has been consulted due to the recent CT scan that showed a 11 cm x 2.89 x1.7 cm heterogeneous fluid collection with air overlying the right gluteal musculature. Dr. Rodarte to review CT scan findings. Vital signs, laboratory data and I's/O have been reviewed. Patient has remained afebrile since admission. WBC 8.7, he has had no leukocytosis, hemoglobin 7.1, platelets 418. Plan: 1. Abnormal CT results of right gluteal concerning for abscess Low concern for I&D needed at this time. Please Dr. Rodarte addendum to follow for examination of right gluteal ulcer and wound. -Wet-to-dry dressing to right gluteal at this time until seen and evaluated by Dr. Parnell. This document was dictated with voice recognition software and may contain grammatical errors 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 Medications Inpatient clindamycin, 900 mg= 50 mL, IV Piggyback, q8h Dextrose 50% IV Push, 12.5 gram(s)= 25 mL, IV Push, AsDirected, PRN Dilaudid, 1 mg= 1 mL, IV Push, q6hr, PRN DuoNeb, 3 mL, Inhalation, q4hRT, PRN gabapentin, 300 mg= 1 cap(s), Oral, qDay HumaLOG 100 units/mL subcutaneous solution, Give 0-15 units/dose, Subcutaneous, achs Lantus, 15 unit(s)= 0.15 mL, Subcutaneous (INT), qHS melatonin, 3 mg= 1 tab(s), Oral, qHS, PRN meropenem [place] 325- 5 mg oral tablet, 1 tab(s), Oral, q4h, PRN [place] 325-10 mg oral tablet, 1 tab(s), Oral, q4h, PRN omeprazole, 40 mg= 1 cap(s), Oral, BID rosuvastatin, 10 mg= 1 tab(s), Oral, qAM Toprol-XL, 100 mg= 1 tab(s), Oral, BID Tylenol, 650 mg= 2 tab(s), Oral, q4h, PRN Vancomycin - RANDOM level reminder, 1 EA, Miscellaneous, q12hr VANCOMYCIN -- pharmacy re-dosing by random level, 1 EA, Miscellaneous, Daily Zofran, 4 mg= 2 mL, IV Push, q4h, PRN Home bacitracin topical ointment, 1 artemio, Topical, BID bumetanide 1 mg oral tablet, 1 mg= 1 tab(s), Oral, BID, 2 refills Dakins Half Strength 0.25% topical solution, 1 artemio, Topical, BID Eliquis 5 mg oral tablet, 5 mg= 1 tab(s), Oral, BID, 4 refills emollients, topical, 1 artemio, Topical, BID gabapentin 100 mg oral capsule, 300 mg= 3 cap(s), Oral, qDay glimepiride 4 mg oral tablet, 8 mg= 2 tab(s), Oral, with breakfast HumaLOG 100 units/mL subcutaneous solution, Give 0-10 units/dose, Subcutaneous, TIDAC Lantus Solostar Pen 100 units/mL 3 mL Pen, 30 unit(s), Subcutaneous, qHS lidocaine 4% patch, Transdermal, q24h omeprazole 40 mg oral delayed release capsule, 40 mg= 1 cap(s), Oral, BID rosuvastatin 10 mg oral tablet, 10 mg= 1 tab(s), qDay Toprol-XL 100 mg oral tablet, extended release, 100 mg= 1 tab(s), Oral, BID, 3 refills Allergies ampicillin Unknown penicillin Unknown Social History Smoking Status - 08/17/2018 Current every day smoker Alcohol - No Risk, 09/19/2020 Use: Current. Frequency: 1-2 times per year., 07/07/2023 Home/Environment Living situation: Home/Independent. Safe place to go: Yes. Financial concerns: No. Domestic Concerns: None., 03/08/2024 Nutrition/Health Type of diet: Regular. Appetite Good. Eating Difficulties None., 03/08/2024 Substance Abuse - Denies Substance Abuse, 08/17/2018 Use: Never., 04/30/2019 Tobacco - No Risk, 09/19/2020 Tobacco Use: 10 or more cigarettes (1/2 pack or more)/day in last 30 days. Type: Cigarettes., 04/30/2019 Family History Patient was adopted Alcohol abuse: Father. Diabetes: Father. Health Status Family Member(s) Immunizations tetanus/diphth/pertuss (Tdap) adult/adol: 0.5 mL (08/17/18) Digitally Signed by IRIS VILLALPANDO on 06/19/2024 10:[address] [facility] [id number] Urology Consult note Date of Service 06/19/24 Reason for Consultation Perineal fluid collection History of Present Illness 49-year-old male past medical history of nonischemic cardiomyopathy EF of 25 to 30% improved to 40-45% by last echo, proximal atrial fibrillation on Eliquis, CKD, chronic Hernandez, Claire's gangrene status postdebridement back in March 2024, insulin-dependent diabetes, hyperlipidemia, hypertension presents to [facility] due to concern for decubitus wound infection and purulent drainage with concern for abscess. Lab work with greater than 100 white blood cells on urinalysis, creatinine of 3.4, potassium 4.4, sodium 134, INR 1.6, hemoglobin of 6.1, WBC of 12,200, platelets of 1 88,000 he wasordered changes of PRBC for transfusion. Chest x-ray with no acute cardiopulmonary findings. CT abdomen pelvis with contrast showed 11 cm x 2.89 x 1.7 cm heterogeneous fluid collection with air overlying the right gluteal musculature and also 2.8 x 1.5 x 2.9 cm heterogeneous fluid collection in theleft side of the perineum and inferior scrotum. There was concern for sepsis blood pressure on presentation was 79/55 he was given IV fluid resuscitation 30 cc/kg and responded adequately blood pressure improved to 114/73. He was given vancomycin and Zosyn and clindamycin given his previous historyof Claire's gangrene. Given this concern he was transferred here for urology and surgery consultation. Patient denies noticing stool in his urine. [1] Urology has been consulted secondary to perineal fluid collection. The patient reports that he was sent to the emergency department for a low hemoglobin by the doctor at his care facility. He denies any fevers, chills, nausea, vomiting, or gross hematuria. He denies any problems with the healing scrotal incision from his prior I&D for Claire's gangrene. He reports there is only 1 focal areaof tenderness on the perineum, but that is not even exceptionally painful. Review of Systems GENERAL: No fevers, no chills, no weight loss. INTEGUMENTARY: No rashes. HEENT: No headaches, no visual disturbances, no hearing loss. CARDIOVASCULAR: No chest pain, no palpitations. RESPIRATORY: No shortness of breath, no cough. GI: No nausea, no diarrhea. : see HPI for pertinent positives and negatives. MUSCULOSKELETAL: No pain, lower extremity flaccidity NEUROLOGIC: No focal deficits. PSYCHIATRIC: no depression, no anxiety. HEMATOLOGY: No abnormal bruising, no easy bleeding. Physical Exam Vitals and Measurements T: 36.5 C (Oral) TMIN: 36.5 C (Oral) TMAX: 36.8 C (Oral) HR: 76 (Monitored) RR: 16 BP: 121/75 SpO2:98% HT: 188 cm WT: 109.5 kg BMI: 30.98 Weight Dosing Weight: 109.5 kg (06/18/24) GENERAL: 49 year old male that is resting in bed. Appears to be in no acute distress. Nursing at bedside. SKIN: warm and dry. No rashes noted. HEENT: mucous membranes moist. LUNGS: no use of accessory muscles. ABDOMEN: Soft, non distended, non tender GENITOURINARY: 16 FR straight hernandez present. Draining clear yellow. Secured with cath secure. Well-healing scrotal incision without evidence of erythema or crepitus, no fluctuance of the perineum MUSCULOSKELETAL: Moves all extremities x 2. VASCULAR: . +1 edema. NEUROLOGICAL: A&O x3. No focal deficits. Lab Results 06/19 03:54 WBC: 8.7 Hgb: 7.1 L Hct: 21.2 L Platelet: 418 Neutrophil %: 56.5 Glucose Level: 73 Sodium Level: 134 L Potassium Level: 4.2 BUN: 52.0 H Creatinine Lvl (s): 2.74 H 06/18 18:30 WBC: 10.0 Hgb: 7.7 L Hct: 22.7 L Platelet: 433 Neutrophil %: 67.4 Glucose Level: 103 Sodium Level: 133 L Potassium Level: 4.3 BUN: 54.0 H Creatinine Lvl (s): 2.75 H Imaging Results and Diagnostics CT abdomen pelvis with contrast showed 11 cm x 2.89 x 1.7 cm heterogeneous fluid collection with air overlying the right gluteal musculature and also 2.8 x 1.5 x 2.9 cm heterogeneous fluid collectionin the left side of the perineum and inferior scrotum. Assessment/Plan Perineal fluid collection At the present time, the patient's scrotum appears to be healing well without any fluctuance. I do not appreciate any fluctuance in the perineum. Will await consultation from general surgery. If theyfeel that he needs to go to surgery, then the scrotum can be evaluated intraoperatively. Otherwise,unless general surgery opens the perineum with the gluteal collection, the patient could potentially be sent to interventional radiology for drainage of the perineal fluid collection. 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 Medications Inpatient clindamycin, 900 mg= 50 mL, IV Piggyback, q8h Dextrose 50% IV Push, 12.5 gram(s)= 25 mL, IV Push, AsDirected, PRN Dilaudid, 1 mg= 1 mL, IV Push, q6hr, PRN DuoNeb, 3 mL, Inhalation, q4hRT, PRN gabapentin, 300 mg= 1 cap(s), Oral, qDay glimepiride, 8 mg= 4 tab(s), Oral, with breakfast HumaLOG 100 units/mL subcutaneous solution, Give 0-10 units/dose, Subcutaneous, TIDAC Lantus, 30 unit(s)= 0.3 mL, Subcutaneous (INT), qHS melatonin, 3 mg= 1 tab(s), Oral, qHS, PRN meropenem [place] 325- 5 mg oral tablet, 1 tab(s), Oral, q4h, PRN [place] 325-10 mg oral tablet, 1 tab(s), Oral, q4h, PRN NS 1,000 mL, 1000 mL, Intravenous omeprazole, 40 mg= 1 cap(s), Oral, BID rosuvastatin, 10 mg= 1 tab(s), Oral, qAM Toprol-XL, 100 mg= 1 tab(s), Oral, BID Tylenol, 650 mg= 2 tab(s), Oral, q4h, PRN Vancomycin - RANDOM level reminder, 1 EA, Miscellaneous, q12hr VANCOMYCIN -- pharmacy re-dosing by random level, 1 EA, Miscellaneous, Daily Zofran, 4 mg= 2 mL, IV Push, q4h, PRN Home bacitracin topical ointment, 1 artemio, Topical, BID bumetanide 1 mg oral tablet, 1 mg= 1 tab(s), Oral, BID, 2 refills Dakins Half Strength 0.25% topical solution, 1 artemio, Topical, BID Eliquis 5 mg oral tablet, 5 mg= 1 tab(s), Oral, BID, 4 refills emollients, topical, 1 artemio, Topical, BID gabapentin 100 mg oral capsule, 300 mg= 3 cap(s), Oral, qDay glimepiride 4 mg oral tablet, 8 mg= 2 tab(s), Oral, with breakfast HumaLOG 100 units/mL subcutaneous solution, Give 0-10 units/dose, Subcutaneous, TIDAC Lantus Solostar Pen 100 units/mL 3 mL Pen, 30 unit(s), Subcutaneous, qHS lidocaine 4% patch, Transdermal, q24h omeprazole 40 mg oral delayed release capsule, 40 mg= 1 cap(s), Oral, BID rosuvastatin 10 mg oral tablet, 10 mg= 1 tab(s), qDay Toprol-XL 100 mg oral tablet, extended release, 100 mg= 1 tab(s), Oral, BID, 3 refills Allergies ampicillin Unknown penicillin Unknown Social History Smoking Status - 08/17/2018 Current every day smoker Alcohol - No Risk, 09/19/2020 Use: Current. Frequency: 1-2 times per year., 07/07/2023 Home/Environment Living situation: Home/Independent. Safe place to go: Yes. Financial concerns: No. Domestic Concerns: None., 03/08/2024 Nutrition/Health Type of diet: Regular. Appetite Good. Eating Difficulties None., 03/08/2024 Substance Abuse - Denies Substance Abuse, 08/17/2018 Use: Never., 04/30/2019 Tobacco - No Risk, 09/19/2020 Tobacco Use: 10 or more cigarettes (1/2 pack or more)/day in last 30 days. Type: Cigarettes., 04/30/2019 Family History Patient was adopted Alcohol abuse: Father. Diabetes: Father. Health Status Family Member(s) Immunizations tetanus/diphth/pertuss (Tdap) adult/adol: 0.5 mL (08/17/18) [1] History and Physical; ILEANA RICO MD 06/18/2024 17:17 EDT Digitally Signed by NATA BENZ DO on 06/19/2024 08:[address] 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 Lab work with greater than 100 white blood cells on urinalysis, creatinine of 3.4, potassium 4.4, sodium 134, INR 1.6, hemoglobin of 6.1, WBC of 12,200, platelets of 1 88,000 he wasordered changes of PRBC for transfusion. Chest x-ray with no acute cardiopulmonary findings. CT abdomen pelvis with contrast showed 11 cm x 2.89 x 1.7 cm heterogeneous fluid collection with air overlying the right gluteal musculature and also 2.8 x 1.5 x 2.9 cm heterogeneous fluid collection in theleft side of the perineum and inferior scrotum. There was concern for sepsis blood pressure on presentation was 79/55 he was given IV fluid resuscitation 30 cc/kg and responded adequately blood pressure improved to 114/73. He was given vancomycin and Zosyn and clindamycin given his previous historyof Claire's gangrene. Given this concern he was transferred here for urology and surgery consultation. Patient denies noticing stool in his urine. Review of Systems 14 point review of system was discussed and reviewed as negative unless otherwise specified above Physical Exam Vitals and Measurements T: 36.8 C (Oral) HR: 93 HR: 94 (Monitored) RR: 16 BP: 137/78 SpO2: 98% No qualifying data available. Exam done with bedside lip cutter General- in no acute distress, alert Cardiac- Normal S1 S2, with no murmur rubs or gallops, no edema HEENT- PERRLA, eyes- sclera nonicteric, oral mucosa moist Lungs- Clear to auscultation bilaterally Abdomen- Nontender to palpation, positive bowel sounds Neurology- No focal neuro deficit, follows command Skin- no rash Psychiatry- oriented x3 Musculoskeletal-right great toe sweets stage IV ulcer and purulent drainage Genitalia-scrotal redness and swelling with purulent drainage or blood previous stitches on the right scrotal region Assessment 1. Sepsis 2. Right gluteal ulcer with abscess 3. Scrotal wound abscess 4. Claire's gangrene s/p debridement March 2024 5. Other past medical history including nonischemic cardiomyopathy EF of 40-45%, proximal atrial fibrillation on Eliquis, CKD, chronic Hernandez, insulin-dependent diabetes, hyperlipidemia, hypertension Plan 1. EKG reviewed normal sinus rhythm. CT abdomen pelvis concerning for fluid collection in the rightgluteal region and also scrotal region concerning for abscess. Antibiotics for now with vancomycin and meropenem and clindamycin. ESR CRP has been ordered. Blood cultures. ID consultation. Urology consultation. Wound care consult. May benefit from general surgery consultation given concern for possible wound tract/fistula with gluteal and scrotal abscess. Follow-up urine culture from [facility]. SCD DVT prophylaxis. Blood sugar control with home insulin regimen sliding scale. MRI of the pelvis to rule out osteomyelitis. Hold anticoagulation for now given anemia. This document was transcribed using a voice recognition software and may contain typographical errors. Lab Results No 36 Hour Lab Data Assessment/Plan Orders: acetaminophen(Tylenol), 650 mg= 2 tab(s), Oral, q4h, PRN acetaminophen-hydrocodone([place] 325- 5 mg oral tablet), 1 tab(s), Oral, q4h, PRN acetaminophen-hydrocodone([place] 325-10 mg oral tablet), 1 tab(s), Oral, q4h, PRN albuterol-ipratropium(DuoNeb), 3 mL, Inhalation, q4hRT, PRN clindamycin, 900 mg, IV Piggyback, q8h glucose(Dextrose 50% IV Push), 12.5 gram(s)= 25 mL, IV Push, AsDirected, PRN HYDROmorphone(Dilaudid), 1 mg= 1 mL, IV Push, q6hr, PRN insulin lispro (HumaLOG)(HumaLOG 100 units/mL subcutaneous solution), Give 0-10 units/dose, Subcutaneous, TIDAC melatonin, 3 mg= 1 tab(s), Oral, qHS, PRN meropenem, 1 gram(s), IV Piggyback, q8h ondansetron(Zofran), 4 mg= 2 mL, IV Push, q4h, PRN Sodium Chloride 0.9% intravenous solution 1,000 mL(NS 1,000 mL), 1000 mL, Intravenous vancomycin(vancomycin IVPB), 1.75 gram(s)= 500 mL, IV Piggyback, Vanc Policy Admit to Inpatient, 06/18/24 17:05:00 EDT, Level of Care: Stepdown with monitor, Reason for Admission: See History & Physical, Expected Length of Stay: More Than Two Midnights, I certify that hospital inpatient services are reasonable and necessary, and appropriately pro... Ambulate, 06/18/24 17:04:00 EDT, PRN Order [place] [employer] Diet(ADA Diet), 06/18/24 17:13:00 EDT, Start Meal: Now, 1800 kcal, Constant Order, N/A, N/A Basic Metabolic Panel(BMP), 06/18/24 17:04:00 EDT, URGENT (collect within 2 hrs), Blood, Once, Stopdate 06/18/24 17:06:00 EDT Bed Request - Transfer, 06/18/24 16:26:00 EDT, Care Level Step Down, Care Service Medical, Telemetry Yes, Cognitive Impairment None, Dialysis No, Neg Pressure No, Precautions None, Isolation Type None Blood Culture (bacterial), 06/18/24 17:05:00 EDT, URGENT (collect within 2 hrs), Blood, Stop date 06/18/24 17:06:00 EDT Blood Culture (bacterial), 06/18/24 17:05:00 EDT, URGENT (collect within 2 hrs), Blood, Stop date 06/18/24 17:06:00 EDT Blood Glucose Call Parameter, 06/18/24 17:04:00 EDT, call provider if patient's blood glucose is <70mg/dL, Constant order Blood Glucose Call Parameter, 06/18/24 17:04:00 EDT, If patient is NPO for x-ray or surgery and hypoglycemic, call physician for further orders, Constant order Blood Glucose Monitoring Bedside PRN, 06/18/24 17:04:00 EDT, PRN Order, For signs/symptoms of hypoglycemia Blood Glucose Monitoring Bedside PRN(Blood Sugar, Fingerstick PRN), 06/18/24 17:13:00 EDT, 06/18/2417:13:00 EDT, as needed Blood Glucose Monitoring POC, 06/18/24 17:13:00 EDT, achs C-Reactive Protein(CRP), 06/18/24 17:06:00 EDT, URGENT (collect within 2 hrs), Blood, Once, Stop date 06/18/24 17:06:00 EDT Code Status, 06/18/24 17:05:00 EDT, Full Code, Constant Order Communication Order (continuous), 06/18/24 17:04:00 EDT, Stat EKG will be obtained in the setting of new, ongoing or worsening chest discomfort/acute coronary syndrome symptoms in all nursing units and/or rhythm change in all monitored units., Constant order Complete Blood Count(CBC), 06/18/24 17:04:00 EDT, URGENT (collect within 2 hrs), Blood, Once, Stop date 06/18/24 17:06:00 EDT Complete Blood Count(CBC), 06/19/24 5:00:00 EDT, Next AM Draw (one day only), Blood, Once, Stop date 06/19/24 5:00:00 EDT Complete Metabolic Panel(CMP), 06/19/24 5:00:00 EDT, Next AM Draw (one day only), Blood, Once, Stopdate 06/19/24 5:00:00 EDT Consult to Physician, 06/18/24 17:04:00 EDT, CIARA VIGIL MD, Routine, gluteal wound with abscess Consult to Physician, 06/18/24 17:04:00 EDT, BIENVENIDO FAIRCHILD DO, Routine, gluteal wound with abscess Consult to Physician, 06/18/24 17:04:00 EDT, FRANCESCA PARNELL MD, Routine, gluteal wound with abscess Consult to Physician, 06/18/24 17:16:00 EDT, BRENDA VAZQUEZ MD, Routine, recent claire's, fluid collection in scrotum Consult to Vancomycin Pharmacist, 06/18/24 17:07:42 EDT, entered secondary to Vancomycin order CPK, 06/18/24 17:04:00 EDT, URGENT (collect within 2 hrs), Blood, Once, Stop date 06/18/24 17:06:00EDT Intake and Output, 06/18/24 17:04:00 EDT, q8h (2p, 10p, 6a) IV Catheter Insertion/Care(Peripheral IV Insertion/Care), 06/18/24 17:04:00 EDT, IV Care: q4h, Rotate when clinically indicated & q7day drsg change Prn Adapter, 06/18/24 17:04:00 EDT, Constant Order Pulse Oximeter - Intermittent, 06/18/24 17:04:00 EDT, q8hRT ROUTINE EMERGENCY TREATMENT - Full Code, 06/18/24 17:06:00 EDT, Constant order Sedimentation Rate Automated(ESR), 06/18/24 17:06:00 EDT, URGENT (collect within 2 hrs), Blood, Once, Stop date 06/18/24 17:06:00 EDT Sequential Compression Device Application(SCD Application), 06/18/24 17:15:00 EDT, Knee high, q4h, Bilateral Telemetry Monitoring, 06/18/24 17:06:14 EDT, Constant order Vancomycin Pharmacist Monitoring, 06/19/24 6:00:00 EDT, [id number], entered secondary to Vancomycin order Vital Signs, 06/18/24 17:04:00 EDT, q8h 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 Medications Home Medications (13) Active bacitracin topical ointment 1 artemio, Topical, BID bumetanide 1 mg oral tablet 1 mg = 1 tab(s), Oral, BID Dakins Half Strength 0.25% topical solution 1 artemio, Topical, BID Eliquis 5 mg oral tablet 5 mg = 1 tab(s), Oral, BID emollients, topical 1 artemio, Topical, BID gabapentin 100 mg oral capsule 300 mg = 3 cap(s), Oral, qDay glimepiride 4 mg oral tablet 8 mg = 2 tab(s), Oral, with breakfast HumaLOG 100 units/mL subcutaneous solution Give 0-10 units/dose, Subcutaneous, TIDAC Lantus Solostar Pen 100 units/mL 3 mL Pen 30 unit(s), Subcutaneous, qHS lidocaine 4% patch , Transdermal, q24h omeprazole 40 mg oral delayed release capsule 40 mg = 1 cap(s), Oral, BID rosuvastatin 10 mg oral tablet 10 mg = 1 tab(s), qDay Toprol-XL 100 mg oral tablet, extended release 100 mg = 1 tab(s), Oral, BID Allergies ampicillin Unknown penicillin Unknown Social History Smoking Status - 08/17/2018 Current every day smoker Alcohol - No Risk, 09/19/2020 Use: Current. Frequency: 1-2 times per year., 07/07/2023 Home/Environment Living situation: Home/Independent. Safe place to go: Yes. Financial concerns: No. Domestic Concerns: None., 03/08/2024 Nutrition/Health Type of diet: Regular. Appetite Good. Eating Difficulties None., 03/08/2024 Substance Abuse - Denies Substance Abuse, 08/17/2018 Use: Never., 04/30/2019 Tobacco - No Risk, 09/19/2020 Tobacco Use: 10 or more cigarettes (1/2 pack or more)/day in last 30 days. Type: Cigarettes., 04/30/2019 Family History Patient was adopted Alcohol abuse: Father. Diabetes: Father. Health Status Family Member(s) Immunizations tetanus/diphth/pertuss (Tdap) adult/adol: 0.5 mL (08/17/18) Code Status Code Status - Ordered -- 06/18/24 17:05:00 EDT, Full Code, Constant Order Digitally Signed by ILEANA RICO MD on 06/18/2024 07:[address] [id number] Evaluation + Plan noteExtracted from: Title:History and Physical Author:KEREN RICO MD Date:06/18/24 Orders: acetaminophen(Tylenol), 650 mg= 2 tab(s), Oral, q4h, PRN acetaminophen-hydrocodone([place] 325- 5 mg oral tablet), 1 tab(s), Oral, q4h, PRN acetaminophen-hydrocodone([place] 325-10 mg oral tablet), 1 tab(s), Oral, q4h, PRN albuterol-ipratropium(DuoNeb), 3 mL, Inhalation, q4hRT, PRN clindamycin, 900 mg, IV Piggyback, q8h glucose(Dextrose 50% IV Push), 12.5 gram(s)= 25 mL, IV Push, AsDirected, PRN HYDROmorphone(Dilaudid), 1 mg= 1 mL, IV Push, q6hr, PRN insulin lispro (HumaLOG)(HumaLOG 100 units/mL subcutaneous solution), Give 0-10 units/dose, Subcutaneous, TIDAC melatonin, 3 mg= 1 tab(s), Oral, qHS, PRN meropenem, 1 gram(s), IV Piggyback, q8h ondansetron(Zofran), 4 mg= 2 mL, IV Push, q4h, PRN Sodium Chloride 0.9% intravenous solution 1,000 mL(NS 1,000 mL), 1000 mL, Intravenous vancomycin(vancomycin IVPB), 1.75 gram(s)= 500 mL, IV Piggyback, Vanc Policy Admit to Inpatient, 06/18/24 17:05:00 EDT, Level of Care: Stepdown with monitor, Reason for Admission: See History & Physical, Expected Length of Stay: More Than Two Midnights, I certify that hospital inpatient services are reasonable and necessary, and appropriately pro... Ambulate, 06/18/24 17:04:00 EDT, PRN Order [place] [employer] Diet(ADA Diet), 06/18/24 17:13:00 EDT, Start Meal: Now, 1800 kcal, Constant Order, N/A, N/A Basic Metabolic Panel(BMP), 06/18/24 17:04:00 EDT, URGENT (collect within 2 hrs), Blood, Once, Stop date 06/18/24 17:06:00 EDT Bed Request - Transfer, 06/18/24 16:26:00 EDT, Care Level Step Down, Care Service Medical, Telemetry Yes, Cognitive Impairment None, Dialysis No, Neg Pressure No, Precautions None, Isolation Type None Blood Culture (bacterial), 06/18/24 17:05:00 EDT, URGENT (collect within 2 hrs), Blood, Stop date 06/18/24 17:06:00 EDT Blood Culture (bacterial), 06/18/24 17:05:00 EDT, URGENT (collect within 2 hrs), Blood, Stop date 06/18/24 17:06:00 EDT Blood Glucose Call Parameter, 06/18/24 17:04:00 EDT, call provider if patient's blood glucose is <70mg/dL, Constant order Blood Glucose Call Parameter, 06/18/24 17:04:00 EDT, If patient is NPO for x-ray or surgery and hypoglycemic, call physician for further orders, Constant order Blood Glucose Monitoring Bedside PRN, 06/18/24 17:04:00 EDT, PRN Order, For signs/symptoms of hypoglycemia Blood Glucose Monitoring Bedside PRN(Blood Sugar, Fingerstick PRN), 06/18/24 17:13:00 EDT, 06/18/24 17:13:00 EDT, as needed Blood Glucose Monitoring POC, 06/18/24 17:13:00 EDT, achs C-Reactive Protein(CRP), 06/18/24 17:06:00 EDT, URGENT (collect within 2 hrs), Blood, Once, Stop date 06/18/24 17:06:00 EDT Code Status, 06/18/24 17:05:00 EDT, Full Code, Constant Order Communication Order (continuous), 06/18/24 17:04:00 EDT, Stat EKG will be obtained in the setting of new, ongoing or worsening chest discomfort/acute coronary syndrome symptoms in all nursing units and/or rhythm change in all monitored units., Constant order Complete Blood Count(CBC), 06/18/24 17:04:00 EDT, URGENT (collect within 2 hrs), Blood, Once, Stop date 06/18/24 17:06:00 EDT Complete Blood Count(CBC), 06/19/24 5:00:00 EDT, Next AM Draw (one day only), Blood, Once, Stop date 06/19/24 5:00:00 EDT Complete Metabolic Panel(CMP), 06/19/24 5:00:00 EDT, Next AM Draw (one day only), Blood, Once, Stop date 06/19/24 5:00:00 EDT Consult to Physician, 06/18/24 17:04:00 EDT, CIARA VIGIL MD, Routine, gluteal wound with abscess Consult to Physician, 06/18/24 17:04:00 EDT, BIENVENIDO FAIRCHILD DO, Routine, gluteal wound with abscess Consult to Physician, 06/18/24 17:04:00 EDT, FRANCESCA PARNELL MD, Routine, gluteal wound with abscess Consult to Physician, 06/18/24 17:16:00 EDT, BRENDA VAZQUEZ MD, Routine, recent claire's, fluid collection in scrotum Consult to Vancomycin Pharmacist, 06/18/24 17:07:42 EDT, entered secondary to Vancomycin order CPK, 06/18/24 17:04:00 EDT, URGENT (collect within 2 hrs), Blood, Once, Stop date 06/18/24 17:06:00 EDT Intake and Output, 06/18/24 17:04:00 EDT, q8h (2p, 10p, 6a) IV Catheter Insertion/Care(Peripheral IV Insertion/Care), 06/18/24 17:04:00 EDT, IV Care: q4h, Rotate when clinically indicated & q7day drsg change Prn Adapter, 06/18/24 17:04:00 EDT, Constant Order Pulse Oximeter - Intermittent, 06/18/24 17:04:00 EDT, q8hRT ROUTINE EMERGENCY TREATMENT - Full Code, 06/18/24 17:06:00 EDT, Constant order Sedimentation Rate Automated(ESR), 06/18/24 17:06:00 EDT, URGENT (collect within 2 hrs), Blood, Once, Stop date 06/18/24 17:06:00 EDT Sequential Compression Device Application(SCD Application), 06/18/24 17:15:00 EDT, Knee high, q4h, Bilateral Telemetry Monitoring, 06/18/24 17:06:14 EDT, Constant order Vancomycin Pharmacist Monitoring, 06/19/24 6:00:00 EDT, [id number], entered secondary to Vancomycin order Vital Signs, 06/18/24 17:04:00 EDT, q8h Future Appointments Appointment Date:07/22/2024 11:00:00 AM Scheduled Provider:SAMRA BURROWS Location:UROLOGY Appointment Type:URO OV Future Scheduled Tests Radiology* CT Pelvis w/ IV Contrast Only 06/27/[address] [facility] 07-19-2024 Note Discharge Instructions Thank you for allowing [facility] to assist you with your healthcare needs. The following is importantdischarge information regarding your hospital visit. What to Do Next Instructions from Your Care Team No qualifying data available. Post Acute Orders No qualifying data available. You Need to Schedule the Following Appointments Follow Up with PHOEBE ADAM When:Within 2-4 days Where:[address] [place] [address]- Allergies ampicillin Unknown penicillin Unknown Medications Please ask your primary doctor or pharmacist before taking any other medication not listed, including over the counter drugs, herbal medications, vitamins and or supplements as they may interact withyour home medications. What How Much When Instructions Last Dose Unchanged apixaban (Eliquis 5 mg oral tablet) 1 tab(s) by mouth Two (2) times a day Duration: 30 Days Unchanged bacitracin topical (bacitracin topical ointment) 1 application Topical Two (2) times a day Unchanged bumetanide (bumetanide 1 mg oral tablet) 1 tab(s) by mouth Two (2) times a day Duration: 30 Days Start on Unchanged emollients, topical 1 application Topical Two (2) times a day Unchanged gabapentin (gabapentin 100 mg oral capsule) 3 cap by mouth Once a day Unchanged glimepiride (glimepiride 4 mg oral tablet) 2 tab(s) by mouth With breakfast Unchanged insulin glargine (Lantus Solostar Pen 100 units/ mL 3 mL Pen) 30 unit(s) Subcutaneous Daily at bedtime Unchanged insulin lispro (HumaLOG) (HumaLOG 100 units/ mL subcutaneous solution) Give 0-10 units/dose Subcutaneous Three (3) times a day before meals Unchanged lidocaine topical (lidocaine 4% patch) Transdermal Every 24 hours Unchanged metoprolol (Toprol-XL 100 mg oral tablet, extended release) 1 tab(s) by mouth Two (2) times a day Duration: 30 Days Unchanged omeprazole (omeprazole 40 mg oral delayed release capsule) 1 cap by mouth Two (2) times a day Unchanged rosuvastatin (rosuvastatin 10 mg oral tablet) 1 tab(s) Once a day AM Unchanged sodium hypochlorite topical (Dakins Half Strength 0.25% topical solution) 1 application Topical Two (2) times a day Please take this list to your next doctor s visit. Bring all medications you take, including over the counter medications, herbals and other supplements with you to your doctor s visit. Patients and families are reminded to discard old lists and to update any records with all medication providers or retail pharmacies. Education Materials Wound Check After Surgery: Bleeding Surgery involves cutting through layers of skin, fatty tissue, muscle, and sometimes bone and cartilage. Stitches or jessica are used to close all layers of the wound. The stitches on the inside willdissolve in about 2 to 3 weeks. Any stitches or jessica used on the outside need to be removed in about 7 to 14 days, depending on the location. It is normal to have some clear or bloody discharge on the wound covering or bandage (dressing) forthe first few days after surgery. If your wound was stitched closed, you should not have to change the dressing more than 3 times a day in the first few days. Bleeding or discharge requiring more frequent dressing changes can be a sign of a problem. If this occurs, notify your healthcare provider right away. Home care Different types of surgery require different types of care and dressing changes. It is important tofollow all instructions and advice from your surgeon, as well as other members of your healthcare team. Wound care If you smoke, get help to quit. Smoking interferes with wound healing. Ask your healthcare providerabout ways to quit. Keep the wound clean, as directed by your healthcare provider. Change the dressing as directed. Change the dressing sooner if it becomes wet or stained with bloodor fluid from the wound. Bathe with a sponge (no shower or tub baths) for the first few days after surgery, or until there is no more drainage from the wound. Unless you received different instructions from your surgeon, youcan then shower. Don't soak the area in water (no baths or swimming) until the tape, sutures, or jessica are removed and any wound opening has dried out and healed. Changing the dressing Wash your hands before changing the dressings. Carefully remove the dressing and tape; don t just yank it off. If it sticks to the wound, you may need to wet it a little to remove it, unless your healthcare provider told you not to wet it. Wash your hands again before putting on a new, clean dressing. Gently clean the wound with clean water (or saline) using gauze or a clean washcloth. Don't rub it or pick at it. Don't use soap, alcohol, hydrogen peroxide, or any other cleanser. If you were told to dry the wound before putting on a new dressing, gently pat it dry. Don't rub. Put the old dressing in a sealed plastic bag and throw it in the trash. Don't reuse it! Wash your hands again when you are done. Types of dressings Your healthcare team will tell you what type of dressing to put on your wound. Follow your healthcare team s instructions carefully, and contact them if you have any questions. Two common types of dressings are described below. You may have one of these or another type. Dry dressing. Use dry gauze. If the wound is still draining, use a nonadherent dressing, which shouldn t stick to the wound. Wet-to-dry dressing. Wet the gauze, and squeeze out the excess water (or saline), before putting iton. Then, cover this with a dry pad. Medicines If you were given antibiotics, take them until they are used up or your healthcare provider tells you to stop. It is important to finish the antibiotics even though you feel better, to make sure the infection has cleared. You can take acetaminophen or ibuprofen for pain, unless you were given a different pain medicine to use. (Note: If you have chronic liver or kidney disease, or have ever had a stomach ulcer or gastrointestinal bleeding, or are taking blood thinner medicines, talk with your healthcare provider before using these medicines.) Aspirin should never be used in anyone under 18 years of age who is ill with a fever. It may cause severe liver damage. Follow-up care Follow up with your healthcare provider, or as advised, for your next wound check or removal of stitches, jessica, or tape. If a culture was done, you will be notified if the results will affect your treatment. You can callas directed for the results. If imaging tests, such as X-rays, an ultrasound, or CT scan were done, they will be reviewed by a specialist. You will be notified of the results, especially if they affect treatment. Call 911 Call 911 if any of these occur: Trouble breathing or swallowing Wheezing Hoarse voice or trouble speaking Extreme confusion Extreme drowsiness or trouble awakening Fainting or loss of consciousness Rapid heart rate or very slow heart rate Vomiting blood, or large amounts of blood in stool Discomfort in the center of the chest that feels like pressure, squeezing, a sense of fullness, or pain Discomfort or pain in other upper body areas, such as the back, one or both arms, neck, jaw, or stomach Stroke symptoms (spot a stroke FAST ) oF: Face drooping. One side of the face is numb or droops. oA: Arm weakness. One arm feels weak or numb. oS: Speech difficulty: Speech is slurred, or the person is unable to speak. oT: Time to call 911. Even if symptoms go away, call 911. When to seek medical advice Call your healthcare provider right away if any of the following occur: Fluid or blood soaking 5 or more bandages a day during the first 3 days after surgery Fluid or blood still draining from the wound more than 3 days after surgery Increasing pain at the site of surgery Fever of 100.4 F (38 C) or higher, or as directed by your healthcare provider Redness around the wound Pus coming from the wound Vomiting, constipation, or diarrhea [id number] [employer]. [address] [place] [address]. All rights reserved. This information is not intended as a substitute for professional medical care. Always follow yourhealthcare professional's instructions. What Are Pressure Injuries? Pressure injuries (pressure ulcers, pressure sores, or bedsores) happen when pressure on your skin cuts off your blood supply. This usually happens in areas where your bones are closer to the surface(bony prominences). This makes your skin and the tissue below your skin break down. Pressure injuries often happen if you lie or sit in one position for too long. They can be painful and heal slowly.But you can do many things to help stop pressure injuries. Who s at risk Anyone who can t move around on their own is at risk for pressure injuries. The biggest risk factors are: Staying in a bed or wheelchair Not being able to change positions without help from someone else Other risk factors include: Skin irritation from loss of bladder or bowel control Poor nutrition Vascular disease Smoking Diabetes Your role Your role is to prevent pressure injuries from forming. That means you need to: Change positions often. Support your body by using cushions or pillows. Don't rub or slide. Keep your skin clean and dry. Eat a healthy diet and get enough movement. Check your skin twice a day for signs of skin breakdown. Where pressure injuries occur Pressure injuries form where bone presses your skin against a bed or chair. This is most likely to happen in places where there is less padding between the skin and the bone. This includes your head and feet, and around joints like your shoulder, hip, and knee. When to call your healthcare provider Call your healthcare provider when you first see any of the following: Redness that doesn t go away after the pressure source is removed Cracked, blistered, or broken skin Red, shiny skin that is painful or warm to the touch, or that feels spongy or hard Skin that has lost feeling (sensation) [id number] [employer]. [address] [place] [address]. All rights reserved. This information is not intended as a substitute for professional medical care. Always follow yourhealthcare professional's instructions. Additional Information VACCINATE! IT SAVES LIVES! Members of the community who have not yet received the COVID-19 vaccine and would like to receive it can visit one of [facility] vaccine clinics. There are many vaccine clinic locations within the [facility]. For locations and available times, please visit [email or web address].[email or web address]/. It is important to note that some COVID mobile vaccine clinics are held outdoors and may be canceled in rainy or stormy conditions. To learn more about pediatric vaccinations (ages 5-11), we invite you to visit the [facility] webpage. [email or web address] learn more about the COVID-19 vaccine, we invite you to visit the CDC website for a list of frequently asked questions. https://www.cdc.gov/coronavirus/2019-ncov/vaccines/faq.html [facility] Patient Portal Access Instructions: Stay connected with your healthcare team and access your personal medical information anytime with the [facility]. If you would like a full copy of your medical records please contact the [facility] Medical Records Department Sunday through Sunday between 8a.m. and 4:30p.m. Please follow the directions below to access the portal: 1.Access the email account you provided upon registration to the [facility].2.Look for an invitation email from [facility].3.Open the email and access the invitation link: Accept Invitation to [facility]4.Fill in the required nguyen to create your account. Sign into [email or web address] with your username and password that you created in the above steps to stay up to date. You can then view a summary of results, a summary of your visits, and the ability to download your summaries to your computer or send the information securely to a physician. Remember that your healthcare information is confidential, so carefully consider who you will allow to register on the [facility] Patient Portal for access to your information. You can also access the [facility] Patient Portal on the [employer] artemio. Simply click on Health Records under [employer] and then click on the [employer] logo. HOW TO SAFELY DISPOSE OF PRESCRIPTION MEDICATIONS Please use one of the following methods to safely dispose of your unused medications. 1.Use a drug disposal kit: the drug disposal pouch allows you to safely discard your old and unuseddrugs. Ask your nurse to give you one when you are discharged.2.Visit a local take-back location: Many local pharmacies and police departments have programs that collect old and unwanted prescriptiondrugs. Call your local pharmacy or go to http://bit.[employer]/5E2Am5g to find one close to you.3.Make use of household items: Use cat litter or old coffee grounds to dispose medications if other options arenot available. Mix your drugs with these household products, seal them in an airtight container andthrow it into the garbage. Call [facility]: [phone] to be sure your drugs can be disposed of in this way. Some medicines may require a different approach.4.Never flush your medications down the toilet. IF YOU HAVE BEEN PRESCRIBED AN OPIOIDS FOR PAIN If you have been prescribed an opioid (such as hydrocodone, oxycodone or morphine), it is critical to understand the possible side effects and risks of opioid pain medications. Even when taken as directed, opioids can have several side effects including: Tolerance, meaning you might need to take more of a medication for the same pain relief. Nausea, vomiting and/or constipation. Sleepiness, dizziness, dry mouth, confusion, depression or itching. Physical dependence, meaning you have withdrawal symptoms when a medication is stopped ? this can develop within a few days. KNOW YOUR RESPONSIBILITIES It is important to know exactly how much and how often to take the opioid pain medications you are prescribed. Never take opioids in higher amounts or more often than prescribed. Do not combine opioids with alcohol or other drugs that cause drowsiness, such as benzodiazepines, also known as benzos,including diazepam and alprazolam, muscle relaxants or sleep aids. Never sell or share prescriptionopioids. This is illegal. Store opioids in a secure place and out of reach of others (including children, family, friends and visitors). The last page(s) of this document has been signed and retained as a CHART COPY Signatures Patient Education Materials Post Op Wound Check, Bleeding What Are Pressure Sores? Medication Leaflets My discharge plan and instructions have been reviewed and explained to me and I,GURINDER HAHN understand my current condition and have read and understand these discharge instructions. I have received a written copy of the plan/instructions. If I have questions, I am aware that I should contact my doctor. Patient/Care Management Associate Signature: Date/Time: Relationship to Patient: Witness Name/Signature: Date/Time: [facility]07-19-2024 Hospital Discharge instructions Patient Education 06/06/2024 03:49:29 Post Op Wound Check, Bleeding Wound Check After Surgery: Bleeding Surgery involves cutting through layers of skin, fatty tissue, muscle, and sometimes bone and cartilage. Stitches or jessica are used to close all layers of the wound. The stitches on the inside willdissolve in about 2 to 3 weeks. Any stitches or jessica used on the outside need to be removed in about 7 to 14 days, depending on the location. It is normal to have some clear or bloody discharge on the wound covering or bandage (dressing) forthe first few days after surgery. If your wound was stitched closed, you should not have to change the dressing more than 3 times a day in the first few days. Bleeding or discharge requiring more frequent dressing changes can be a sign of a problem. If this occurs, notify your healthcare provider right away. Home care Different types of surgery require different types of care and dressing changes. It is important tofollow all instructions and advice from your surgeon, as well as other members of your healthcare team. Wound care If you smoke, get help to quit. Smoking interferes with wound healing. Ask your healthcare providerabout ways to quit. Keep the wound clean, as directed by your healthcare provider. Change the dressing as directed. Change the dressing sooner if it becomes wet or stained with bloodor fluid from the wound. Bathe with a sponge (no shower or tub baths) for the first few days after surgery, or until there is no more drainage from the wound. Unless you received different instructions from your surgeon, youcan then shower. Don't soak the area in water (no baths or swimming) until the tape, sutures, or jessica are removed and any wound opening has dried out and healed. Changing the dressing Wash your hands before changing the dressings. Carefully remove the dressing and tape; don t just yank it off. If it sticks to the wound, you may need to wet it a little to remove it, unless your healthcare provider told you not to wet it. Wash your hands again before putting on a new, clean dressing. Gently clean the wound with clean water (or saline) using gauze or a clean washcloth. Don't rub it or pick at it. Don't use soap, alcohol, hydrogen peroxide, or any other cleanser. If you were told to dry the wound before putting on a new dressing, gently pat it dry. Don't rub. Put the old dressing in a sealed plastic bag and throw it in the trash. Don't reuse it! Wash your hands again when you are done. Types of dressings Your healthcare team will tell you what type of dressing to put on your wound. Follow your healthcare team s instructions carefully, and contact them if you have any questions. Two common types of dressings are described below. You may have one of these or another type. Dry dressing. Use dry gauze. If the wound is still draining, use a nonadherent dressing, which shouldn t stick to the wound. Wet-to-dry dressing. Wet the gauze, and squeeze out the excess water (or saline), before putting iton. Then, cover this with a dry pad. Medicines If you were given antibiotics, take them until they are used up or your healthcare provider tells you to stop. It is important to finish the antibiotics even though you feel better, to make sure the infection has cleared. You can take acetaminophen or ibuprofen for pain, unless you were given a different pain medicine to use. (Note: If you have chronic liver or kidney disease, or have ever had a stomach ulcer or gastrointestinal bleeding, or are taking blood thinner medicines, talk with your healthcare provider before using these medicines.) Aspirin should never be used in anyone under 18 years of age who is ill with a fever. It may cause severe liver damage. Follow-up care Follow up with your healthcare provider, or as advised, for your next wound check or removal of stitches, jessica, or tape. If a culture was done, you will be notified if the results will affect your treatment. You can callas directed for the results. If imaging tests, such as X-rays, an ultrasound, or CT scan were done, they will be reviewed by a specialist. You will be notified of the results, especially if they affect treatment. Call 911 Call 911 if any of these occur: Trouble breathing or swallowing Wheezing Hoarse voice or trouble speaking Extreme confusion Extreme drowsiness or trouble awakening Fainting or loss of consciousness Rapid heart rate or very slow heart rate Vomiting blood, or large amounts of blood in stool Discomfort in the center of the chest that feels like pressure, squeezing, a sense of fullness, or pain Discomfort or pain in other upper body areas, such as the back, one or both arms, neck, jaw, or stomach Stroke symptoms (spot a stroke FAST ) oF: Face drooping. One side of the face is numb or droops. oA: Arm weakness. One arm feels weak or numb. oS: Speech difficulty: Speech is slurred, or the person is unable to speak. oT: Time to call 911. Even if symptoms go away, call 911. When to seek medical advice Call your healthcare provider right away if any of the following occur: Fluid or blood soaking 5 or more bandages a day during the first 3 days after surgery Fluid or blood still draining from the wound more than 3 days after surgery Increasing pain at the site of surgery Fever of 100.4 F (38 C) or higher, or as directed by your healthcare provider Redness around the wound Pus coming from the wound Vomiting, constipation, or diarrhea [id number] [employer]. [address] [place] [address]. All rights reserved. This information is not intended as a substitute for professional medical care. Always follow yourhealthcare professional's instructions. 06/06/2024 03:48:58 What Are Pressure Sores? What Are Pressure Injuries? Pressure injuries (pressure ulcers, pressure sores, or bedsores) happen when pressure on your skin cuts off your blood supply. This usually happens in areas where your bones are closer to the surface(bony prominences). This makes your skin and the tissue below your skin break down. Pressure injuries often happen if you lie or sit in one position for too long. They can be painful and heal slowly.But you can do many things to help stop pressure injuries. Who s at risk Anyone who can t move around on their own is at risk for pressure injuries. The biggest risk factors are: Staying in a bed or wheelchair Not being able to change positions without help from someone else Other risk factors include: Skin irritation from loss of bladder or bowel control Poor nutrition Vascular disease Smoking Diabetes Your role Your role is to prevent pressure injuries from forming. That means you need to: Change positions often. Support your body by using cushions or pillows. Don't rub or slide. Keep your skin clean and dry. Eat a healthy diet and get enough movement. Check your skin twice a day for signs of skin breakdown. Where pressure injuries occur Pressure injuries form where bone presses your skin against a bed or chair. This is most likely to happen in places where there is less padding between the skin and the bone. This includes your head and feet, and around joints like your shoulder, hip, and knee. When to call your healthcare provider Call your healthcare provider when you first see any of the following: Redness that doesn t go away after the pressure source is removed Cracked, blistered, or broken skin Red, shiny skin that is painful or warm to the touch, or that feels spongy or hard Skin that has lost feeling (sensation) 6943-[address] [employer] [place] [address]. All rights reserved. This information is not intended as a substitute for professional medical care. Always follow yourhealthcare professional's instructions. Follow Up Care 06/06/2024 01:28:08 With:PHOEBE ADAM Address: [address] [place] [id number]- When:2-4 days [facility] 07-19-2024 Note ORIGINAL EXAMINATION: ONE XRAY VIEW OF THE PELVIS 06/06/2024 2:19 am COMPARISON: 02/05/2024 HISTORY: ORDERING SYSTEM PROVIDED HISTORY: Reason for Exam: Pt had pressure wound debrided today and wound has not stopped bleeding since procedure. sacral wound, r/o osteo FINDINGS: No evidence of pelvic fracture. Bilateral hips demonstrate normal alignment. No focal osseous lesion. SI joints are symmetric. IMPRESSION: No acute abnormality of the pelvis. Interpreted by: Kelvin Doll DO Preliminary Report By: Kelvin Doll DO Electronically signed By Kelvin Doll DO Dictated Date: 06/06/2024 1:07:06 PM Prelim Date: 06/06/2024 1:07:43 PM Sign Date: 06/06/2024 1:07:43 PM Ordering Provider: [facility]07-15-2024 Telephone encounter Note* Telephone Encounter - MOIRA Peralta CNP - 06/02/2024 2:21 PM EDT Noted. [id number] Miscellaneous Notes* Telephone Encounter - MOIRA Peralta CNP - 06/02/2024 2:21 PM EDT Noted. * Telephone Encounter - MOIRA Peralta CNP - 06/02/2024 12:50 PM EDT Is he still at an extended care facility? If he is, are they managing his medications there? * Telephone Encounter - Viki Velasquez MA - 06/02/2024 8:23 AM EDT Prescription Request: Last medication check: 04/05/2023 Last physical exam: 06/22/2021 Next scheduled appointment: none Last date of refill on this medication: 12/14/2023 [id number] Telephone encounter Note* Telephone Encounter - MOIRA Peralta CNP - 06/02/2024 12:50 PM EDT Is he still at an extended care facility? If he is, are they managing his medications there? [id number] Telephone encounter Note* Telephone Encounter - Viki Velasquez MA - 06/02/2024 8:23 AM EDT Prescription Request: Last medication check: 04/05/2023 Last physical exam: 06/22/2021 Next scheduled appointment: none Last date of refill on this medication: 12/14/2023 [id number] Discharge instructions Patient Education 05/15/2024 17:45:11 Heart-Healthy Eating Plan, [facility] Heart-Healthy Eating Plan Heart-healthy meal planning includes: Eating less unhealthy fats. Eating more healthy fats. Making other changes in your diet. Talk with your doctor or a diet specialist (dietitian) to create an eating plan that is right for you. What is my plan? Your doctor may recommend an eating plan that includes: Total fat: % or less of total calories a day. Saturated fat: % or less of total calories a day. Cholesterol: less than mg a day. What are tips for following this plan? Cooking Avoid frying your food. Try to bake, boil, grill, or broil it instead. You can also reduce fat by: Removing the skin from poultry. Removing all visible fats from meats. Steaming vegetables in water or broth. Meal planning At meals, divide your plate into four equal parts: ?Fill one-half of your plate with vegetables and green salads. ?Fill one-fourth of your plate with whole grains. ?Fill one-fourth of your plate with lean protein foods. Eat 4 5 servings of vegetables per day. A serving of vegetables is: ?1 cup of raw or cooked vegetables. ?2 cups of raw leafy greens. Eat 4 5 servings of fruit per day. A serving of fruit is: ?1 medium whole fruit. ? cup of dried fruit. ? cup of fresh, frozen, or canned fruit. ? cup of 100% fruit juice. Eat more foods that have soluble fiber. These are apples, broccoli, carrots, beans, peas, and barley. Try to get 20 30 g of fiber per day. Eat 4 5 servings of nuts, legumes, and seeds per week: ?1 serving of dried beans or legumes equals cup after being cooked. ?1 serving of nuts is cup. ?1 serving of seeds equals 1 tablespoon. General information Eat more home-cooked food. Eat less restaurant, buffet, and fast food. Limit or avoid alcohol. Limit foods that are high in starch and sugar. Avoid fried foods. Lose weight if you are overweight. Keep track of how much salt (sodium) you eat. This is important if you have high blood pressure. Ask your doctor to tell you more about this. Try to add vegetarian meals each week. Fats Choose healthy fats. These include olive oil and canola oil, flaxseeds, walnuts, almonds, and seeds. Eat more omega-3 fats. These include salmon, mackerel, sardines, tuna, flaxseed oil, and ground flaxseeds. Try to eat fish at least 2 times each week. Check food labels. Avoid foods with trans fats or high amounts of saturated fat. Limit saturated fats. ?These are often found in animal products, such as meats, butter, and cream. ?These are also found in plant foods, such as palm oil, palm kernel oil, and coconut oil. Avoid foods with partially hydrogenated oils in them. These have trans fats. Examples are stick margarine, some tub margarines, cookies, crackers, and other baked goods. What foods can I eat? Fruits All fresh, canned (in natural juice), or frozen fruits. Vegetables Fresh or frozen vegetables (raw, steamed, roasted, or grilled). Green salads. Grains Most grains. Choose whole wheat and whole grains most of the time. Rice and pasta, including brown rice and pastas made with whole wheat. Meats and other proteins Lean, well-trimmed beef, veal, pork, and salinas. Chicken and turkey without skin. All fish and shellfish. Wild duck, rabbit, pheasant, and venison. Egg whites or low-cholesterol egg substitutes. Dried beans, peas, lentils, and tofu. Seeds and most nuts. Dairy Low-fat or nonfat cheeses, including ricotta and mozzarella. Skim or 1% milk that is liquid, powdered, or evaporated. Buttermilk that is made with low-fat milk. Nonfat or low-fat yogurt. Fats and oils Non-hydrogenated (trans-free) margarines. Vegetable oils, including soybean, sesame, sunflower, olive, peanut, safflower, corn, canola, and cottonseed. Salad dressings or mayonnaise made with a vegetable oil. Beverages Mineral water. Coffee and tea. Diet carbonated beverages. Sweets and desserts Sherbet, gelatin, and fruit ice. Small amounts of dark chocolate. Limit all sweets and desserts. Seasonings and condiments All seasonings and condiments. The items listed above may not be a complete list of foods and drinks you can eat. Contact a dietitian for more options. What foods should I avoid? Fruits Canned fruit in heavy syrup. Fruit in cream or butter sauce. Fried fruit. Limit coconut. Vegetables Vegetables cooked in cheese, cream, or butter sauce. Fried vegetables. Grains Breads that are made with saturated or trans fats, oils, or whole milk. Croissants. Sweet rolls. Donuts. High-fat crackers, such as cheese crackers. Meats and other proteins Fatty meats, such as hot dogs, ribs, sausage, romero, rib-eye roast or steak. High-fat deli meats, such as salami and bologna. Caviar. Domestic duck and goose. Organ meats, such as liver. Dairy Cream, sour cream, cream cheese, and creamed cottage cheese. Whole-milk cheeses. Whole or 2% milk that is liquid, evaporated, or condensed. Whole buttermilk. Cream sauce or high-fat cheese sauce. Yogurt that is made from whole milk. Fats and oils Meat fat, or shortening. [place] butter, hydrogenated oils, palm oil, coconut oil, palm kernel oil. Solid fats and shortenings, including romero fat, salt pork, lard, and butter. Nondairy cream substitutes. Salad dressings with cheese or sour cream. Beverages Regular sodas and juice drinks with added sugar. Sweets and desserts Frosting. Pudding. Cookies. Cakes. Pies. Milk chocolate or white chocolate. Buttered syrups. Full-fat ice cream or ice cream drinks. The items listed above may not be a complete list of foods and drinks to avoid. Contact a dietitianfor more information. Summary Heart-healthy meal planning includes eating less unhealthy fats, eating more healthy fats, and making other changes in your diet. Eat a balanced diet. This includes fruits and vegetables, low-fat or nonfat dairy, lean protein, nuts and legumes, whole grains, and heart-healthy oils and fats. This information is not intended to replace advice given to you by your health care provider. Make sure you discuss any questions you have with your health care provider. Document Released: 05/06/2013 Document Revised: 01/09/2019 Document Reviewed: 12/13/2018 [employer] Patient Education 2020 [employer]. Follow Up Care 05/07/2024 13:00:12 With:Discharge to [facility] Level [facility] Care Address:Unknown When:1-2 days With:DAMARI FATIMA MD, Internal Medicine Address: [address] [facility] [place] [address]- When:5 to 7 days With:JEN BELTRAN MD Address: [address] [facility] [place] [address] [phone] When:Within 10 Day(s) With:PHOEBE ADAM Address: [address] [place] [address]- [facility] (1) When: Unknown Comments:PLEASE CALL THIS OFFICE TO SCHEDULE A HOSPITAL FOLLOW UP APPOINTMENT. With:JEN BELTRAN MD Address: [address] [place] [address]- [phone] When:06/17/2024 10:15:00 With:[facility] Address: [address] [place] [address]- When:5-7 days Comments:Ahmad following scrotum wound & please see right buttock ulcer [facility] 06-27-2024 Note Discharge Instructions Thank you for allowing [facility] to assist you with your healthcare needs. The following is importantdischarge information regarding your hospital visit. Your Care Team PHOEBE ADAM APRN-PRODUCT ENGINEER What to do next Instructions From Your Doctor 1. Kindly follow up with your Primary Care Physician and Barrel Turner as recommended. You will needto do labwork in 3-5 days after being discharged. 2. Some of your medications may have changed during this hospital stay. Please go over these changes with your nurse before you leave the hospital. _ 3. Take all your medications as prescribed. If you have any queries, please reach out to our [facility] office at [phone] for general queries and [phone] for medication refills. 4. All your medical records and results are available to you through our [facility] Patient Portal. Tosign up, please visit [email or web address] Scheduled Follow-Up Appointments Appointment Type When Where Contact Information StatusCV OV Hospital Follow Up 06/17/2024 10:15 AM EDT [facility] Confirmed Follow Up Appointments Follow Up with Discharge to [facility] Level [facility] Care When:Within 1-2 days Follow Up with DAMARI FATIMA MD, Internal Medicine When:Within 5 to 7 days Where:[address] [facility] [place] [place] [address]- Follow Up with JEN BELTRAN MD When:In 10 days Where:[address] [facility] [address] [place] [address]- [phone] Follow Up with PHOEBE ADAM Where:[address] [place] [address]- Business (1) Additional Information: PLEASE CALL THIS OFFICE TO SCHEDULE A HOSPITAL FOLLOW UP APPOINTMENT. Follow Up with [facility] When:Within 5-7 days Where:[address] [place] [address]- Additional Information: Ahmad following scrotum wound & please see right buttock ulcer Follow Up with JEN BELTRAN MD When:06/17/2024 10:15 AM EDT Where:[address] [place] [address]- [phone] The Following Activity and Diet Have Been Ordered for You Discharge Activity - Ordered -- Activity As Tolerated, 05/15/24 11:49:00 EDT Transfer of Care Activity - Ordered -- As instructed by therapy, 05/15/24 11:50:00 EDT Discharge Diet - Ordered -- Diet Restrictions: Cardiac diet, Sodium limit: 2 gm, No changes were made to your diet during your hospital stay. Please resume your pre hospitalization diet on discharge., 05/15/24 11:49:00 EDT Transfer of Care Diet - Ordered -- Type of Diet: Regular Diet, Diet Restrictions: Cardiac diet, Sodium limit: 2 gm, 05/15/24 11:50:00 EDT The Following Equipment Has Been Ordered for You No qualifying data available. The Following Treatments Have Been Ordered for You Discharge Labs Discharge Outpatient Labwork - Ordered -- BMP, Magnesium level, Follow up of electrolytes while on cardiac medications, follow-up within: 3-5 days, Results Notify to: JEN BELTRAN MD Results Notify to: PCP and real estate firm manager, 05/15/24 11:49:00 EDT Discharge Radiology No qualifying data available. Other Therapies No qualifying data available. Post Acute Orders Transfer of Care Admission Level of Care - Ordered -- Level of Care SNF, 05/15/24 11:50:11 EDT Transfer of Care Code Status - Ordered -- Full Code, Constant Order Transfer of Care Communication Order - Ordered -- Expect less than 30 day stay., 05/15/24 13:04:41 EDT Transfer of Care Orders Electronically Signed By - Ordered -- 05/15/24 11:50:00 EDT, CHELA QURESHI MD Transfer of Care Prognosis - Ordered -- Fair, Patient Aware: Yes Transfer of Care Rehab Potential - Ordered -- Rehab potential fair, 05/15/24 11:50:11 EDT Someone Will Contact You Regarding These Home Health Referrals No home referrals have been ordered for you. No one will call you. Allergies ampicillin Unknown penicillin Unknown Medications Please ask your primary doctor or pharmacist before taking any other medication not listed, including over the counter drugs, herbal medications, vitamins and or supplements as they may interact withyour home medications. What How Much When Instructions Last Dose Changed apixaban (Eliquis 5 mg oral tablet) 1 tab(s) by mouth Two (2) times a day Duration: 30 Days Pickup at [facility] #[id number] Changed bumetanide (bumetanide 1 mg oral tablet) 1 tab(s) by mouth Two (2) times a day Duration: 30 Days Start on Pickup at [facility] #[id number] Changed cefdinir (cefdinir 300 mg oral capsule) 1 cap by mouth Two (2) times a day Duration: 13 Days Pickup at [facility] #[id number] Changed metoprolol (Toprol-XL 100 mg oral tablet, extended release) 1 tab(s) by mouth Two (2) times a day Duration: 30 Days Pickup at [facility] #[id number] Changed minocycline (minocycline 100 mg oral capsule) 1 cap by mouth Every 12 hours Duration: 13 Days Pickup at [facility] #[id number] Unchanged acetaminophen (Tylenol 8 Hour 650 mg oral tablet, extended release) 2 tab(s) by mouth Every 8 hours as needed for as needed for pain Duration: 10 Days Unchanged bacitracin topical (bacitracin topical ointment) 1 application Topical Two (2) times a day Unchanged emollients, topical 1 application Topical Two (2) times a day Unchanged gabapentin (gabapentin 100 mg oral capsule) 3 cap by mouth Once a day Unchanged glimepiride (glimepiride 4 mg oral tablet) 2 tab(s) by mouth With breakfast Unchanged insulin glargine (Lantus Solostar Pen 100 units/ mL 3 mL Pen) 30 unit(s) Subcutaneous Daily at bedtime Unchanged insulin lispro (HumaLOG) (HumaLOG 100 units/ mL subcutaneous solution) Give 0-10 units/dose Subcutaneous Three (3) times a day before meals Unchanged lidocaine topical (lidocaine 4% patch) Transdermal Every 24 hours Unchanged omeprazole (omeprazole 40 mg oral delayed release capsule) 1 cap by mouth Two (2) times a day Unchanged rosuvastatin (rosuvastatin 10 mg oral tablet) 1 tab(s) Once a day AM Unchanged sodium hypochlorite topical (Dakins Half Strength 0.25% topical solution) 1 application Topical Two (2) times a day Pharmacy Information [facility] #[id number]: [address], [place] [id number] [phone] What How Much When Comments Stop Taking amLODIPine (amLODIPine 10 mg oral tablet) 1 tab(s) by mouth Once a day Stop Taking empagliflozin (Jardiance 10 mg oral tablet) 1 tab(s) by mouth Once a day (in the morning) Stop Taking insulin isophane (NPH) 8 unit(s) Subcutaneous Three (3) times a day before meals Stop Taking linezolid (Zyvox 600 mg oral tablet) 1 tab(s) by mouth Two (2) times a day Stop Taking losartan (losartan 25 mg oral tablet) 1 tab(s) by mouth Once a day Please take this list to your next doctor s visit. Bring all medications you take, including over the counter medications, herbals and other supplements with you to your doctor s visit. Patients and families are reminded to discard old lists and to update any records with all medication providers or retail pharmacies. Education Materials Heart-Healthy Eating Plan Heart-healthy meal planning includes: Eating less unhealthy fats. Eating more healthy fats. Making other changes in your diet. Talk with your doctor or a diet specialist (dietitian) to create an eating plan that is right for you. What is my plan? Your doctor may recommend an eating plan that includes: Total fat: % or less of total calories a day. Saturated fat: % or less of total calories a day. Cholesterol: less than mg a day. What are tips for following this plan? Cooking Avoid frying your food. Try to bake, boil, grill, or broil it instead. You can also reduce fat by: Removing the skin from poultry. Removing all visible fats from meats. Steaming vegetables in water or broth. Meal planning At meals, divide your plate into four equal parts: ? Fill one-half of your plate with vegetables and green salads. ? Fill one-fourth of your plate with whole grains. ? Fill one-fourth of your plate with lean protein foods. Eat 4 5 servings of vegetables per day. A serving of vegetables is: ? 1 cup of raw or cooked vegetables. ? 2 cups of raw leafy greens. Eat 4 5 servings of fruit per day. A serving of fruit is: ? 1 medium whole fruit. ? cup of dried fruit. ? cup of fresh, frozen, or canned fruit. ? cup of 100% fruit juice. Eat more foods that have soluble fiber. These are apples, broccoli, carrots, beans, peas, and barley. Try to get 20 30 g of fiber per day. Eat 4 5 servings of nuts, legumes, and seeds per week: ? 1 serving of dried beans or legumes equals cup after being cooked. ? 1 serving of nuts is cup. ? 1 serving of seeds equals 1 tablespoon. General information Eat more home-cooked food. Eat less restaurant, buffet, and fast food. Limit or avoid alcohol. Limit foods that are high in starch and sugar. Avoid fried foods. Lose weight if you are overweight. Keep track of how much salt (sodium) you eat. This is important if you have high blood pressure. Ask your doctor to tell you more about this. Try to add vegetarian meals each week. Fats Choose healthy fats. These include olive oil and canola oil, flaxseeds, walnuts, almonds, and seeds. Eat more omega-3 fats. These include salmon, mackerel, sardines, tuna, flaxseed oil, and ground flaxseeds. Try to eat fish at least 2 times each week. Check food labels. Avoid foods with trans fats or high amounts of saturated fat. Limit saturated fats. ? These are often found in animal products, such as meats, butter, and cream. ? These are also found in plant foods, such as palm oil, palm kernel oil, and coconut oil. Avoid foods with partially hydrogenated oils in them. These have trans fats. Examples are stick margarine, some tub margarines, cookies, crackers, and other baked goods. What foods can I eat? Fruits All fresh, canned (in natural juice), or frozen fruits. Vegetables Fresh or frozen vegetables (raw, steamed, roasted, or grilled). Green salads. Grains Most grains. Choose whole wheat and whole grains most of the time. Rice and pasta, including brown rice and pastas made with whole wheat. Meats and other proteins Lean, well-trimmed beef, veal, pork, and [place]inas. Chicken and turkey without skin. All fish and shellfish. Wild duck, rabbit, pheasant, and venison. Egg whites or low-cholesterol egg substitutes. Dried beans, peas, lentils, and tofu. Seeds and most nuts. Dairy Low-fat or nonfat cheeses, including ricotta and mozzarella. Skim or 1% milk that is liquid, powdered, or evaporated. Buttermilk that is made with low-fat milk. Nonfat or low-fat yogurt. Fats and oils Non-hydrogenated (trans-free) margarines. Vegetable oils, including soybean, sesame, sunflower, olive, peanut, safflower, corn, canola, and cottonseed. Salad dressings or mayonnaise made with a vegetable oil. Beverages Mineral water. Coffee and tea. Diet carbonated beverages. Sweets and desserts Sherbet, gelatin, and fruit ice. Small amounts of dark chocolate. Limit all sweets and desserts. Seasonings and condiments All seasonings and condiments. The items listed above may not be a complete list of foods and drinks you can eat. Contact a dietitian for more options. What foods should I avoid? Fruits Canned fruit in heavy syrup. Fruit in cream or butter sauce. Fried fruit. Limit coconut. Vegetables Vegetables cooked in cheese, cream, or butter sauce. Fried vegetables. Grains Breads that are made with saturated or trans fats, oils, or whole milk. Croissants. Sweet rolls. Donuts. High-fat crackers, such as cheese crackers. Meats and other proteins Fatty meats, such as hot dogs, ribs, sausage, romero, rib-eye roast or steak. High-fat deli meats, such as salami and bologna. Caviar. Domestic duck and goose. Organ meats, such as liver. Dairy Cream, sour cream, cream cheese, and creamed cottage cheese. Whole-milk cheeses. Whole or 2% milk that is liquid, evaporated, or condensed. Whole buttermilk. Cream sauce or high-fat cheese sauce. Yogurt that is made from whole milk. Fats and oils Meat fat, or shortening. [place] butter, hydrogenated oils, palm oil, coconut oil, palm kernel oil. Solid fats and shortenings, including romero fat, salt pork, lard, and butter. Nondairy cream substitutes. Salad dressings with cheese or sour cream. Beverages Regular sodas and juice drinks with added sugar. Sweets and desserts Frosting. Pudding. Cookies. Cakes. Pies. Milk chocolate or white chocolate. Buttered syrups. Full-fat ice cream or ice cream drinks. The items listed above may not be a complete list of foods and drinks to avoid. Contact a dietitianfor more information. Summary Heart-healthy meal planning includes eating less unhealthy fats, eating more healthy fats, and making other changes in your diet. Eat a balanced diet. This includes fruits and vegetables, low-fat or nonfat dairy, lean protein, nuts and legumes, whole grains, and heart-healthy oils and fats. This information is not intended to replace advice given to you by your health care provider. Make sure you discuss any questions you have with your health care provider. Document Released: 05/06/2013 Document Revised: 01/09/2019 Document Reviewed: 12/13/2018 [employer] Patient Education 2020 [employer] Additional Information VACCINATE! IT SAVES LIVES! Members of the community who have not yet received the COVID-19 vaccine and would like to receive it can visit one of [facility] vaccine clinics. There are many vaccine clinic locations within the [facility]. For locations and available times, please visit [email or web address].[place].gov/. It is important to note that some COVID mobile vaccine clinics are held outdoors and may be canceled in rainy or stormy conditions. To learn more about pediatric vaccinations (ages 5-11), we invite you to visit the [facility] webpage. [email or web address].org/pages/[email or web address]-Bvkwr-Cliioqtqzpq-Rmdxiyxgfp-[email or web address]-[email or web address] [email or web address] learn more about the COVID-19 vaccine, we invite you to visit the CDC website for a list of frequently asked questions.https://www.cdc.gov/coronavirus/2019-ncov/vaccines/faq.html [facility] Patient Portal Access Instructions: Stay connected with your healthcare team and access your personal medical information anytime with the [facility] Patient Portal. Please follow the directions below to create your [facility] account: 1.Access the email account you provided upon registration to the hospital/physician office.2.Look for an invitation email from [facility].3.Open the email and access the invitation link: AcceptInvitation to [facility].4.Fill in the required nguyen to create your account. To access your account, visit [employer]. Click the blue button labeled Access Patient Portal and then log in with the username and password that you created in the steps above. You will be able to view your test results, lab results, a summary of your visits, upcoming appointments and more. There is also a convenient messaging option where you can send secure messages to your p rovider. In addition, you will have the ability to download any documents or summaries to your computer and/or send the information securely to a physician. Remember that your healthcare information is confidential, so carefully consider who you will allowto register on the [facility] Patient Portal for access to your information. You can also access the [facility] on the [facility] artemio. Simply click on Patient Portal and then log into your account. If you would like to receive a full copy of your medical records, please contact the [facility] Medical Records Department by calling [phone], Sunday through Sunday between 8 a.m. and 4:30 p.m. HOW TO SAFELY DISPOSE OF PRESCRIPTION MEDICATIONS Please use one of the following methods to safely dispose of your unused medications. 1.Use a drug disposal kit: the drug disposal pouch allows you to safely discard your old and unuseddrugs. Ask your nurse to give you one when you are discharged.2.Visit a local take-back location: Many local pharmacies and police departments have programs that collect old and unwanted prescriptiondrugs. Call your local pharmacy or go to http://[place] PERL.[employer]C Solutions/7O2Di3n to find one close to you.3.Make use of household items: Use cat litter or old coffee grounds to dispose medications if other options arenot available. Mix your drugs with these household products, seal them in an airtight container andthrow it into the garbage. Call [facility]: [phone] to be sure your drugs can be disposed of in this way. Some medicines may require a different approach.4.Never flush your medications down the toilet. IF YOU HAVE BEEN PRESCRIBED AN OPIOID FOR PAIN If you have been prescribed an opioid (such as hydrocodone, oxycodone or morphine), it is critical to understand the possible side effects and risks of opioid pain medications. Even when taken as directed, opioids can have several side effects including: Tolerance, meaning you might need to take more of a medication for the same pain relief. Nausea, vomiting and/or constipation. Sleepiness, dizziness, dry mouth, confusion, depression or itching. Physical dependence, meaning you have withdrawal symptoms when a medication is stopped, can develop within a few days. KNOW YOUR RESPONSIBILITIES It is important to know exactly how much and how often to take the opioid pain medications you are prescribed. Never take opioids in higher amounts or more often than prescribed. Do not combine opioids with alcohol or other drugs that cause drowsiness, such as benzodiazepines, also known as benzos, including diazepam and alprazolam, muscle relaxants or sleep aids. Never sell or share prescription opioids. This is illegal. Store opioids in a secure place and out of reach of others (including children, family, friends and visitors). The last page of this document has been signed and retained as a CHART COPY. Signatures Patient Education Materials Heart-Healthy Eating Plan, Ucpi-zy-Dphv Medication Leaflets My discharge plan and instructions have been reviewed and explained to me and I,GURINDER HAHN understand my current condition and have read and understand these discharge instructions. I have received a written copy of the plan/instructions. If I have questions, I am aware that I should contact my doctor. Patient/Care Management Associate Signature: Date/Time: Relationship to Patient: Witness Name/Signature: [id number] Discharge summary Date of Service 05/15/24 Discharge Diagnosis Atypical chest pain (nuclear stress test negative) Nonischemic cardiomyopathy, HFrEF 25-30% (per echo in April 2024) Paroxysmal atrial fibrillation (on Eliquis) Chronic bifascicular block (LPHB+RBBB), QRS 170 ms GENE on CKD IIIb (baseline creatinine 1.9 2.0) Claire's gangrene s/p debridements, on antibiotics Type 2 diabetes mellitus Essential hypertension Dyslipidemia New onset thrombocytopenia, possibly linezolid induced Hospital Course Patient is a 49-year-old gentleman who was admitted for evaluation of atypical chest pain on May 08, 2024, undergoing a nuclear stress test that was negative. During hospital stay, patient was continued on home dose of Bumex 1 mg BID along with Entresto that resulted in GENE on CKD for which nephrology has been consulted and had recommended discontinuation of both medications, IV hydration that resulted in improvement in renal functions. Patient will go back to his home dose of Bumex 1 mg p.o. BID starting May 19, 2024 with repeat lab work 3 to 5 days after discharge and close follow-up with PCP/primary real estate firm manager/property utilization manager as an outpatient. SGLT2i inhibitors are not being restarted as patient had recent Claire's gangrene. He had thrombocytopenia that was thought to be secondary to linezolid which ID had to be consulted and recommendedcontinuation of cefdinir/minocycline till May 28, 2024. He is being discharged to a SNF for further rehab. Allergies ampicillin Unknown penicillin Unknown Consults Consult to Diabetes Education (Consult to Diabetic Nurse Specialist) - Ordered -- 05/14/24 17:22:00 EDT, Arrange Outpatient Classes, Once Consult to Dietitian (Consult to Entry Level Truck Driver Adult) - Ordered -- 05/14/24 17:22:00 EDT, diet instruction, CCU Consult to Physician - Ordered -- 05/08/24 7:05:00 EDT, DAMARI FATIMA MD, Routine, GENE/ GENE on CKD Consult to Physician - Ordered -- 05/08/24 7:07:00 EDT, SON STEEL BA, MD, Routine, Recent Claire's gangrene Consult to Physician - Ordered -- 05/08/24 13:21:00 EDT, VIANCA CONTI MD, Routine, Diabetes managment Objective Vitals and Measurements T: 36.3 C (Oral) TMIN: 36.3 C (Oral) TMAX: 36.7 C (Oral) HR: 70 (Monitored) RR: 18 BP: 130/80 SpO2:98% Weight Dosing Weight: 114.4 kg (05/08/24) GENERAL APPEARANCE: Lying on bed; _ SKIN: Warm EXTREMITIES: No cyanosis/clubbing. No significant pedal edema HEENT: PERRL, EOMI. JVD not elevated NECK: Supple. Trachea is midline. CHEST: Symmetric. Nontender to palpation. LUNGS: Mildly diminished breath sounds in the bases HEART: RRR, S1, S2 +. No murmurs, gallops, or rubs. ABDOMEN: Soft. No organomegaly. NEUROLOGIC: A&O, moving all four extremities. Code Status Code Status - Ordered -- 05/08/24 5:49:00 EDT, Full Code, Constant Order Admission Date 05/08/24 Discharge Date 05/15/24 Patient Instructions 1. Kindly follow up with your Primary Care Physician and Barrel Turner as recommended. You will needto do labwork in 3-5 days after being discharged. 2. Some of your medications may have changed during this hospital stay. Please go over these changes with your nurse before you leave the hospital. _ 3. Take all your medications as prescribed. If you have any queries, please reach out to our [facility] office at [phone] for general queries and [phone] for medication refills. 4. All your medical records and results are available to you through our [facility] Patient Portal. Tosign up, please visit [email or web address] Medications Changed apixaban (Eliquis 5 mg oral tablet)1 tab(s) by mouth two (2) times a day for 30 Days. Refills: 4. bumetanide (bumetanide 1 mg oral tablet)1 tab(s) by mouth two (2) times a day for 30 Days. Start on05/19/24. Refills: 2. cefdinir (cefdinir 300 mg oral capsule)1 cap by mouth two (2) times a day for 13 Days. Refills: 0. metoprolol (Toprol-XL 100 mg oral tablet, extended release)1 tab(s) by mouth two (2) times a day for 30 Days. Refills: 3. minocycline (minocycline 100 mg oral capsule)1 cap by mouth every 12 hours for 13 Days. Refills: 0. Unchanged acetaminophen (Tylenol 8 Hour 650 mg oral tablet, extended release)2 tab(s) by mouth every 8 hours as needed as needed for pain for 10 Days. Refills: 0. bacitracin topical (bacitracin topical ointment)1 application Topical two (2) times a day. emollients, topical1 application Topical two (2) times a day. gabapentin (gabapentin 100 mg oral capsule)3 cap by mouth once a day. glimepiride (glimepiride 4 mg oral tablet)2 tab(s) by mouth with breakfast. insulin glargine (Lantus Solostar Pen 100 units/mL 3 mL Pen)30 unit(s) Subcutaneous daily at bedtime. Refills: 0. insulin lispro (HumaLOG) (HumaLOG 100 units/mL subcutaneous solution)Give 0-10 units/dose Subcutaneous three (3) times a day before meals. lidocaine topical (lidocaine 4% patch)Transdermal every 24 hours. omeprazole (omeprazole 40 mg oral delayed release capsule)1 cap by mouth two (2) times a day. rosuvastatin (rosuvastatin 10 mg oral tablet)1 tab(s) once a day. AM. sodium hypochlorite topical (Dakins Half Strength 0.25% topical solution)1 application Topical two (2) times a day. Discontinued amLODIPine (amLODIPine 10 mg oral tablet)1 tab(s) by mouth once a day. Refills: 0. empagliflozin (Jardiance 10 mg oral tablet)1 tab(s) by mouth once a day (in the morning). insulin isophane (NPH)8 unit(s) Subcutaneous three (3) times a day before meals. linezolid (Zyvox 600 mg oral tablet)1 tab(s) by mouth two (2) times a day. losartan (losartan 25 mg oral tablet)1 tab(s) by mouth once a day. Follow Up Follow Up with DAMARI FATIMA MD, Internal Medicine When:Within 5 to 7 days Where:[address] [facility] [place] [address]- Follow Up with JEN BELTRAN MD When:In 10 days Where:[address] [facility] [address] [facility] [place] [address] [phone] Follow Up with PHOEBE ADAM Where:[address] [place] [address]- Business (1) Additional Information: PLEASE CALL THIS OFFICE TO SCHEDULE A HOSPITAL FOLLOW UP APPOINTMENT. Follow Up with [facility] When:Within 5-7 days Where:[address] [place] [address]- Additional Information: Ahmad following scrotum wound & please see right buttock ulcer Follow Up with JEN BELTRAN MD When:06/17/2024 10:15 AM EDT Where[facility] [facility] [place] [address]- [phone] Follow Up Appointments No qualifying data available. Follow Up Labs/Studies Discharge Labs Discharge Outpatient Labwork - Ordered -- BMP, Magnesium level, Follow up of electrolytes while on cardiac medications, follow-up within: 3-5 days, Results Notify to: JEN BELTRAN MD Results Notify to: PCP and real estate firm manager, 05/15/24 11:49:00 EDT Discharge Studies No Follow-up Studies Discharge Diet Discharge Diet - Ordered -- Diet Restrictions: Cardiac diet, Sodium limit: 2 gm, No changes were made to your diet during your hospital stay. Please resume your pre hospitalization diet on discharge., 05/15/24 11:49:00 EDT Transfer of Care Diet - Ordered -- Type of Diet: Regular Diet, Diet Restrictions: Cardiac diet, Sodium limit: 2 gm, 05/15/24 11:50:00 EDT Discharge Activity Discharge Activity - Ordered -- Activity As Tolerated, 05/15/24 11:49:00 EDT Transfer of Care Activity - Ordered -- As instructed by therapy, 05/15/24 11:50:00 EDT Condition on Discharge stable Readmission Risk/Palliative Score No qualifying data available. Discharge Disposition SNF Time Spent 30 mins Digitally Signed by JC ROOZCO MD on 05/15/2024 11:[address] [id number] Note Discharge Instructions Thank you for allowing [facility] to assist you with your healthcare needs. The following is importantdischarge information regarding your hospital visit. Your Care Team PHOEBE ADAM APRN-PRODUCT ENGINEER What to do next Instructions From Your Doctor 1. Kindly follow up with your Primary Care Physician and Barrel Turner as recommended. You will needto do labwork in 3-5 days after being discharged. 2. Some of your medications may have changed during this hospital stay. Please go over these changes with your nurse before you leave the hospital. _ 3. Take all your medications as prescribed. If you have any queries, please reach out to our [facility] office at [phone] for general queries and [phone] for medication refills. 4. All your medical records and results are available to you through our [facility] Patient Portal. Tosign up, please visit [email or web address] Scheduled Follow-Up Appointments Appointment Type When Where Contact Information StatusCV OV Hospital Follow Up 06/17/2024 10:15 AM EDT [facility] Confirmed Follow Up Appointments Follow Up with Discharge to [facility] Level of Care When:Within 1-2 days Follow Up with DAMARI FATIMA MD, Internal Medicine When:Within 5 to 7 days Where:[address] [facility] [place] [address]- Follow Up with JEN BELTRAN MD When:In 10 days Where:[address] [facility] [address] [place] [phone] Follow Up with PHOEBE ADAM Where:[address] [place] [address]- Business (1) Additional Information: PLEASE CALL THIS OFFICE TO SCHEDULE A HOSPITAL FOLLOW UP APPOINTMENT. Follow Up with [facility] When:Within 5-7 days Where:[address] [place] [address]- Additional Information: Ahmad following scrotum wound & please see right buttock ulcer Follow Up with JEN BELTRAN MD When:06/17/2024 10:15 AM EDT Where:[address] [place] [address]- [phone] The Following Activity and Diet Have Been Ordered for You Discharge Activity - Ordered -- Activity As Tolerated, 05/15/24 11:49:00 EDT Transfer of Care Activity - Ordered -- As instructed by therapy, 05/15/24 11:50:00 EDT Discharge Diet - Ordered -- Diet Restrictions: Cardiac diet, Sodium limit: 2 gm, No changes were made to your diet during your hospital stay. Please resume your pre hospitalization diet on discharge., 05/15/24 11:49:00 EDT Transfer of Care Diet - Ordered -- Type of Diet: Regular Diet, Diet Restrictions: Cardiac diet, Sodium limit: 2 gm, 05/15/24 11:50:00 EDT The Following Equipment Has Been Ordered for You No qualifying data available. The Following Treatments Have Been Ordered for You Discharge Labs Discharge Outpatient Labwork - Ordered -- BMP, Magnesium level, Follow up of electrolytes while on cardiac medications, follow-up within: 3-5 days, Results Notify to: JEN BELTRAN MD Results Notify to: PCP and real estate firm manager, 05/15/24 11:49:00 EDT Discharge Radiology No qualifying data available. Other Therapies No qualifying data available. Post Acute Orders Transfer of Care Admission Level of Care - Ordered -- Level of Care SNF, 05/15/24 11:50:11 EDT Transfer of Care Code Status - Ordered -- Full Code, Constant Order Transfer of Care Communication Order - Ordered -- Expect less than 30 day stay., 05/15/24 13:04:41 EDT Transfer of Care Orders Electronically Signed By - Ordered -- 05/15/24 11:50:00 EDT, CHELA QURESHI MD Transfer of Care Prognosis - Ordered -- Fair, Patient Aware: Yes Transfer of Care Rehab Potential - Ordered -- Rehab potential fair, 05/15/24 11:50:11 EDT Someone Will Contact You Regarding These Home Health Referrals No home referrals have been ordered for you. No one will call you. Allergies ampicillin Unknown penicillin Unknown Medications Please ask your primary doctor or pharmacist before taking any other medication not listed, including over the counter drugs, herbal medications, vitamins and or supplements as they may interact withyour home medications. What How Much When Instructions Last Dose Changed apixaban (Eliquis 5 mg oral tablet) 1 tab(s) by mouth Two (2) times a day Duration: 30 Days Pickup at [facility] #[id number] Changed bumetanide (bumetanide 1 mg oral tablet) 1 tab(s) by mouth Two (2) times a day Duration: 30 Days Start on Pickup at [facility] #[id number] Changed cefdinir (cefdinir 300 mg oral capsule) 1 cap by mouth Two (2) times a day Duration: 13 Days Pickup at [facility] #[id number] Changed metoprolol (Toprol-XL 100 mg oral tablet, extended release) 1 tab(s) by mouth Two (2) times a day Duration: 30 Days Pickup at [facility] #[id number] Changed minocycline (minocycline 100 mg oral capsule) 1 cap by mouth Every 12 hours Duration: 13 Days Pickup at [facility] #[id number] Unchanged acetaminophen (Tylenol 8 Hour 650 mg oral tablet, extended release) 2 tab(s) by mouth Every 8 hours as needed for as needed for pain Duration: 10 Days Unchanged bacitracin topical (bacitracin topical ointment) 1 application Topical Two (2) times a day Unchanged emollients, topical 1 application Topical Two (2) times a day Unchanged gabapentin (gabapentin 100 mg oral capsule) 3 cap by mouth Once a day Unchanged glimepiride (glimepiride 4 mg oral tablet) 2 tab(s) by mouth With breakfast Unchanged insulin glargine (Lantus Solostar Pen 100 units/ mL 3 mL Pen) 30 unit(s) Subcutaneous Daily at bedtime Unchanged insulin lispro (HumaLOG) (HumaLOG 100 units/ mL subcutaneous solution) Give 0-10 units/dose Subcutaneous Three (3) times a day before meals Unchanged lidocaine topical (lidocaine 4% patch) Transdermal Every 24 hours Unchanged omeprazole (omeprazole 40 mg oral delayed release capsule) 1 cap by mouth Two (2) times a day Unchanged rosuvastatin (rosuvastatin 10 mg oral tablet) 1 tab(s) Once a day AM Unchanged sodium hypochlorite topical (Dakins Half Strength 0.25% topical solution) 1 application Topical Two (2) times a day Pharmacy Information [facility] #[id number]: [address], [place] [id number] [phone] What How Much When Comments Stop Taking amLODIPine (amLODIPine 10 mg oral tablet) 1 tab(s) by mouth Once a day Stop Taking empagliflozin (Jardiance 10 mg oral tablet) 1 tab(s) by mouth Once a day (in the morning) Stop Taking insulin isophane (NPH) 8 unit(s) Subcutaneous Three (3) times a day before meals Stop Taking linezolid (Zyvox 600 mg oral tablet) 1 tab(s) by mouth Two (2) times a day Stop Taking losartan (losartan 25 mg oral tablet) 1 tab(s) by mouth Once a day Please take this list to your next doctor s visit. Bring all medications you take, including over the counter medications, herbals and other supplements with you to your doctor s visit. Patients and families are reminded to discard old lists and to update any records with all medication providers or retail pharmacies. Additional Information VACCINATE! IT SAVES LIVES! Members of the community who have not yet received the COVID-19 vaccine and would like to receive it can visit one of [facility] vaccine clinics. There are many vaccine clinic locations within the [facility]. For locations and available times, please visit [email or web address] It is important to note that some COVID mobile vaccine clinics are held outdoors and may be canceled in rainy or stormy conditions. To learn more about pediatric vaccinations (ages 5-11), we invite you to visit the [facility] webpage. [email or web address] learn more about the COVID-19 vaccine, we invite you to visit the CDC website for a list of frequently asked questions.https://www.cdc.gov/coronavirus/2019-ncov/vaccines/faq.html [facility] Patient Portal Access Instructions: Stay connected with your healthcare team and access your personal medical information anytime with the [facility] Patient Portal. Please follow the directions below to create your [facility] account: 1.Access the email account you provided upon registration to the hospital/physician office.2.Look for an invitation email from [facility].3.Open the email and access the invitation link: AcceptInvitation to [facility].4.Fill in the required nguyen to create your account. To access your account, visit [employer] ([employer])/[facility]. Click the blue button labeled Access Patient Portal and then log in with the username and password that you created in the steps above. You will be able to view your test results, lab results, a summary of your visits, upcoming appointments and more. There is also a convenient messaging option where you can send secure messages to your p rovider. In addition, you will have the ability to download any documents or summaries to your computer and/or send the information securely to a physician. Remember that your healthcare information is confidential, so carefully consider who you will allowto register on the [facility] Patient Portal for access to your information. You can also access the [facility] on the [facility] artemio. Simply click on Patient Portal and then log into your account. If you would like to receive a full copy of your medical records, please contact the [facility] Medical Records Department by calling [phone], Sunday through Sunday between 8 a.m. and 4:30 p.m. HOW TO SAFELY DISPOSE OF PRESCRIPTION MEDICATIONS Please use one of the following methods to safely dispose of your unused medications. 1.Use a drug disposal kit: the drug disposal pouch allows you to safely discard your old and unuseddrugs. Ask your nurse to give you one when you are discharged.2.Visit a local take-back location: Many local pharmacies and police departments have programs that collect old and unwanted prescriptiondrugs. Call your local pharmacy or go to http://Mr Banana/5I0El2y to find one close to you.3.Make use of household items: Use cat litter or old coffee grounds to dispose medications if other options arenot available. Mix your drugs with these household products, seal them in an airtight container andthrow it into the garbage. Call [facility]: [phone] to be sure your drugs can be disposed of in this way. Some medicines may require a different approach.4.Never flush your medications down the toilet. IF YOU HAVE BEEN PRESCRIBED AN OPIOID FOR PAIN If you have been prescribed an opioid (such as hydrocodone, oxycodone or morphine), it is critical to understand the possible side effects and risks of opioid pain medications. Even when taken as directed, opioids can have several side effects including: Tolerance, meaning you might need to take more of a medication for the same pain relief. Nausea, vomiting and/or constipation. Sleepiness, dizziness, dry mouth, confusion, depression or itching. Physical dependence, meaning you have withdrawal symptoms when a medication is stopped, can develop within a few days. KNOW YOUR RESPONSIBILITIES It is important to know exactly how much and how often to take the opioid pain medications you are prescribed. Never take opioids in higher amounts or more often than prescribed. Do not combine opioids with alcohol or other drugs that cause drowsiness, such as benzodiazepines, also known as benzos, including diazepam and alprazolam, muscle relaxants or sleep aids. Never sell or share prescription opioids. This is illegal. Store opioids in a secure place and out of reach of others (including children, family, friends and visitors). The last page of this document has been signed and retained as a CHART COPY. Signatures Patient Education Materials Medication Leaflets My discharge plan and instructions have been reviewed and explained to me and I,UGRINDER HAHN understand my current condition and have read and understand these discharge instructions. I have received a written copy of the plan/instructions. If I have questions, I am aware that I should contact my doctor. Patient/Care Management Associate Signature: Date/Time: Relationship to Patient: Witness Name/Signature: Date/Time[id number] Discharge summary Date of Service 05/15/24 Discharge Diagnosis Atypical chest pain (nuclear stress test negative) Nonischemic cardiomyopathy, HFrEF 25-30% (per echo in April 2024) Paroxysmal atrial fibrillation (on Eliquis) Chronic bifascicular block (LPHB+RBBB), QRS 170 ms GENE on CKD IIIb (baseline creatinine 1.9 2.0) Claire's gangrene s/p debridements, on antibiotics Type 2 diabetes mellitus Essential hypertension Dyslipidemia New onset thrombocytopenia, possibly linezolid induced Hospital Course Patient is a 49-year-old gentleman who was admitted for evaluation of atypical chest pain on May 08, 2024, undergoing a nuclear stress test that was negative. During hospital stay, patient was continued on home dose of Bumex 1 mg BID along with Entresto that resulted in GENE on CKD for which nephrology has been consulted and had recommended discontinuation of both medications, IV hydration that resulted in improvement in renal functions. Patient will go back to his home dose of Bumex 1 mg p.o. BID starting May 19, 2024 with repeat lab work 3 to 5 days after discharge and close follow-up with PCP/primary real estate firm manager/property utilization manager as an outpatient. SGLT2i inhibitors are not being restarted as patient had recent Claire's gangrene. He had thrombocytopenia that was thought to be secondary to linezolid which ID had to be consulted and recommendedcontinuation of cefdinir/minocycline till May 28, 2024. He is being discharged to a SNF for further rehab. Allergies ampicillin Unknown penicillin Unknown Consults Consult to Diabetes Education (Consult to Diabetic Nurse Specialist) - Ordered -- 05/14/24 17:22:00 EDT, Arrange Outpatient Classes, Once Consult to Dietitian (Consult to Entry Level Truck Driver Adult) - Ordered -- 05/14/24 17:22:00 EDT, diet instruction, CCU Consult to Physician - Ordered -- 05/08/24 7:05:00 EDT, DAMARI FATIMA MD, Routine, GENE/ GENE on CKD Consult to Physician - Ordered -- 05/08/24 7:07:00 EDT, SON STEEL BA, MD, Routine, Recent Claire's gangrene Consult to Physician - Ordered -- 05/08/24 13:21:00 EDT, VIANCA CONTI MD, Routine, Diabetes managment Objective Vitals and Measurements T: 36.3 C (Oral) TMIN: 36.3 C (Oral) TMAX: 36.7 C (Oral) HR: 70 (Monitored) RR: 18 BP: 130/80 SpO2:98% Weight Dosing Weight: 114.4 kg (05/08/24) GENERAL APPEARANCE: Lying on bed; _ SKIN: Warm EXTREMITIES: No cyanosis/clubbing. No significant pedal edema HEENT: PERRL, EOMI. JVD not elevated NECK: Supple. Trachea is midline. CHEST: Symmetric. Nontender to palpation. LUNGS: Mildly diminished breath sounds in the bases HEART: RRR, S1, S2 +. No murmurs, gallops, or rubs. ABDOMEN: Soft. No organomegaly. NEUROLOGIC: A&O, moving all four extremities. Code Status Code Status - Ordered -- 05/08/24 5:49:00 EDT, Full Code, Constant Order Admission Date 05/08/24 Discharge Date 05/15/24 Patient Instructions 1. Kindly follow up with your Primary Care Physician and Barrel Turner as recommended. You will needto do labwork in 3-5 days after being discharged. 2. Some of your medications may have changed during this hospital stay. Please go over these changes with your nurse before you leave the hospital. _ 3. Take all your medications as prescribed. If you have any queries, please reach out to our [facility] office at [phone] for general queries and [phone] for medication refills. 4. All your medical records and results are available to you through our [facility] Patient Portal. Tosign up, please visit [email or web address] ([email or web address] Medications Changed apixaban (Eliquis 5 mg oral tablet)1 tab(s) by mouth two (2) times a day for 30 Days. Refills: 4. bumetanide (bumetanide 1 mg oral tablet)1 tab(s) by mouth two (2) times a day for 30 Days. Start on05/19/24. Refills: 2. cefdinir (cefdinir 300 mg oral capsule)1 cap by mouth two (2) times a day for 13 Days. Refills: 0. metoprolol (Toprol-XL 100 mg oral tablet, extended release)1 tab(s) by mouth two (2) times a day for 30 Days. Refills: 3. minocycline (minocycline 100 mg oral capsule)1 cap by mouth every 12 hours for 13 Days. Refills: 0. Unchanged acetaminophen (Tylenol 8 Hour 650 mg oral tablet, extended release)2 tab(s) by mouth every 8 hours as needed as needed for pain for 10 Days. Refills: 0. bacitracin topical (bacitracin topical ointment)1 application Topical two (2) times a day. emollients, topical1 application Topical two (2) times a day. gabapentin (gabapentin 100 mg oral capsule)3 cap by mouth once a day. glimepiride (glimepiride 4 mg oral tablet)2 tab(s) by mouth with breakfast. insulin glargine (Lantus Solostar Pen 100 units/mL 3 mL Pen)30 unit(s) Subcutaneous daily at bedtime. Refills: 0. insulin lispro (HumaLOG) (HumaLOG 100 units/mL subcutaneous solution)Give 0-10 units/dose Subcutaneous three (3) times a day before meals. lidocaine topical (lidocaine 4% patch)Transdermal every 24 hours. omeprazole (omeprazole 40 mg oral delayed release capsule)1 cap by mouth two (2) times a day. rosuvastatin (rosuvastatin 10 mg oral tablet)1 tab(s) once a day. AM. sodium hypochlorite topical (Dakins Half Strength 0.25% topical solution)1 application Topical two (2) times a day. Discontinued amLODIPine (amLODIPine 10 mg oral tablet)1 tab(s) by mouth once a day. Refills: 0. empagliflozin (Jardiance 10 mg oral tablet)1 tab(s) by mouth once a day (in the morning). insulin isophane (NPH)8 unit(s) Subcutaneous three (3) times a day before meals. linezolid (Zyvox 600 mg oral tablet)1 tab(s) by mouth two (2) times a day. losartan (losartan 25 mg oral tablet)1 tab(s) by mouth once a day. Follow Up Follow Up with DAMARI FATIMA MD, Internal Medicine When:Within 5 to 7 days Where:[address] [facility] [place] [place] [address]- Follow Up with JEN BELTRAN MD When:In 10 days Where:[address] [facility] [address] [facility] [place] [place] [phone] Follow Up with PHOEBE ADAM Where:[address] [place] [address]- Business (1) Additional Information: PLEASE CALL THIS OFFICE TO SCHEDULE A HOSPITAL FOLLOW UP APPOINTMENT. Follow Up with [facility] When:Within 5-7 days Where:[address] [place] [id number]- Additional Information: Ahmad following scrotum wound & please see right buttock ulcer Follow Up with JEN BELTRAN MD When:06/17/2024 10:15 AM EDT Where:[address] [facility] [place] [address]- [phone] Follow Up Appointments No qualifying data available. Follow Up Labs/Studies Discharge Labs Discharge Outpatient Labwork - Ordered -- BMP, Magnesium level, Follow up of electrolytes while on cardiac medications, follow-up within: 3-5 days, Results Notify to: JEN BELTRAN MD Results Notify to: PCP and real estate firm manager, 05/15/24 11:49:00 EDT Discharge Studies No Follow-up Studies Discharge Diet Discharge Diet - Ordered -- Diet Restrictions: Cardiac diet, Sodium limit: 2 gm, No changes were made to your diet during your hospital stay. Please resume your pre hospitalization diet on discharge., 05/15/24 11:49:00 EDT Transfer of Care Diet - Ordered -- Type of Diet: Regular Diet, Diet Restrictions: Cardiac diet, Sodium limit: 2 gm, 05/15/24 11:50:00 EDT Discharge Activity Discharge Activity - Ordered -- Activity As Tolerated, 05/15/24 11:49:00 EDT Transfer of Care Activity - Ordered -- As instructed by therapy, 05/15/24 11:50:00 EDT Condition on Discharge stable Readmission Risk/Palliative Score No qualifying data available. Discharge Disposition SNF Time Spent 30 mins Digitally Signed by JC OROZCO MD on 05/15/2024 11:[address] [facility] [id number] Nephrology Progress note Subjective Patient seen and examined. Resting comfortably chart reviewed. Objective Vitals and Measurements T: 36.3 C (Oral) TMIN: 36.3 C (Oral) TMAX: 36.8 C (Oral) HR: 72 (Monitored) RR: 16 BP: 146/82 SpO2:97% Intake and Output 7AM Yesterday to 7AM Today Intake and Output (Last 24 hours) Intake Oral Intake 790.00 Administration Information 600.00 Output Urinary Catheter Output: 2500.00 Stool Count 0.00 Total Summary Total Intake 1390.00 Total Output 2500.00 Fluid Balance -1110.00 Physical Exam Gen: comfortable, No sign of any acute distress HEENT: No pallor, No icterus, no JVD, no carotid bruit Lungs: Clear to auscultation, good air entry CVS: Regular rate and rhythm, no murmur, no rubs Abd: Soft, nontender, no organomegaly, No flank pain Neuro: Alert, no deficits Ext: + 2 edema [1] Weight Dosing Weight: 114.4 kg (05/08/24) Medications Medications (35) Active Scheduled: (19) apixaban 5 mg tablet 5 mg 1 tab(s), Oral, BID atorvastatin 40 mg tablet 40 mg 1 tab(s), Oral, qDay calcium gluconate 1,000 mg 10 mL, IV Piggyback, Once cefdinir 300 mg Capsule 300 mg 1 cap(s), Oral, BID dextrose 50% Solution Disp syringe 50 mL 25 g 50 mL, IV Push, Once emollients (Eucerin Cream) 30gm 1 artemio, Topical, BID gabapentin 300 mg Capsule 300 mg 1 cap(s), Oral, qDay insulin glargine 30 unit(s) 0.3 mL, Subcutaneous (INT), qHS insulin lispro 100 units/mL Soln (3 mL) 4 unit(s) 0.04 mL, Subcutaneous, with breakfast insulin lispro 100 units/mL Soln (3 mL) 4 unit(s) 0.04 mL, Subcutaneous, with lunch insulin lispro 100 units/mL Soln (3 mL) 4 unit(s) 0.04 mL, Subcutaneous, with supper insulin lispro 100 units/mL Soln (3 mL) Give 0-15 units/dose, Subcutaneous, achs insulin regular human recombinant 100 units/mL (3 mL) Soln 5 unit(s) 0.05 mL, IV Push, Once metoprolol succinate 100 mg ER tablet 100 mg 1 tab(s), Oral, BID miconazole topical 2% Powder 1 artemio, Topical, BID minocycline 100 mg Capsule 100 mg 1 cap(s), Oral, q12h omeprazole [address] capsule 40 mg 1 cap(s), Oral, BID sodium hypochlorite topical 0.25% Soln 1 artemio, Topical, BID stomahesive in aquaphor 1oz 1 artemio, Topical, amhs Continuous: (1) NS (0.9% nacl) 1,000 mL 1,000 mL, Intravenous, 75 mL/hr PRN: (15) acetaminophen 325 mg Tablet 650 mg 2 tab(s), Oral, q4h albuterol - ipratropium 2.5 mg-0.5 mg/3 mL Inhal Elena UD 3 mL, Inhalation, q4hRT dextrose 50% Solution Disp syringe 50 mL 12.5 gram(s) 25 mL, IV Push, AsDirected magnesium sulfate 4 gram(s)/100mL PMX 4 g 100 mL, IV Piggyback, AsDirected magnesium sulfate 50% (500mg/mL) 6 g 12 mL, IV Piggyback, AsDirected magnesium sulfate PMX 2 g 50 mL, IV Piggyback, AsDirected melatonin 3 mg tablet 6 mg 2 tab(s), Oral, qHS morphine 2 mg/mL 1 mL syringe 2 mg 1 mL, IV Push, q6hr ondansetron 2 mg/ 1 mL 2 mL INJ 4 mg 2 mL, IV Push, q4h oxycodone 5 mg tablet (immediate release) 5 mg 1 tab(s), Oral, q6hr polyethylene glycol 3350 - UD packet 17 gram(s) 15 mL, Oral, qHS potassium chloride (PMX) 20 mEq/100 mL 20 mEq 100 mL, IV Piggyback, AsDirected potassium chloride 20 mEq ER tablet 20 mEq 1 tab(s), Oral, AsDirected potassium chloride 20 mEq ER tablet 40 mEq 2 tab(s), Oral, AsDirected potassium chloride 20 mEq ER tablet 40 mEq 2 tab(s), Oral, AsDirected Lab Results 05/15 05:56 WBC: 9.4 Hgb: 8.1 L Hct: 24.5 L Platelet: 153 Neutrophil %: 78.8 H Glucose Level: 279 H Sodium Level: 131 L Potassium Level: 5.7 H BUN: 65.0 H Creatinine Lvl (s): 2.88 H 05/14 04:41 WBC: 6.8 Hgb: 8.3 L Hct: 24.8 L Platelet: 121 L Neutrophil %: 59.8 Glucose Level: 160 H Sodium Level: 129 L Potassium Level: 5.1 H BUN: 59.0 H Creatinine Lvl (s): 3.28 H EKG No qualifying data available. Assessment/Plan 1. Acute kidney injury with underlying chronic kidney disease stage IIIb 2. Proximal atrial fibrillation 3. 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 Hypertension 5. Dyslipidemia 6. Diabetes [2] [2] Renal function improved but not back to baseline. Does not appear to be grossly volume overloaded. Will continue monitoring off of diuretics. Mild hyperkalemia dose Lokelma. Reinforced a low potassium diet. Hyponatremia corrects for hyperglycemia. Will continue to follow labs. Patient otherwise okay to be discharged from a renal standpoint. [1] Progress Note; DAMARI FATIMA MD 05/14/2024 08:23 EDT [2] Progress Note; DAMARI FATIMA MD 05/14/2024 08:23 EDT Digitally Signed by DAMARI FATIMA MD on 05/15/2024 10:[address] [facility] [id number] Cardiology Progress note Date of Service 05/14/24 Subjective Patient was seen at bedside. Denies chest pain/orthopnea/PND at present.No new complaints. No acuteevents overnight. Objective Vitals and Measurements T: 36.8 C (Oral) TMIN: 36.6 C (Oral) TMAX: 37.0 C (Oral) HR: 88 (Monitored) RR: 16 BP: 151/80 SpO2:93% Intake and Output 7AM Yesterday to 7AM Today Intake and Output (Last 24 hours) Intake Oral Intake 480.00 Output Urine Voided 975.00 Urinary Catheter Output: 900.00 Stool Count 2.00 Total Summary Total Intake 480.00 Total Output 1875.00 Fluid Balance -1395.00 Physical Exam GENERAL APPEARANCE: Lying on bed; _ SKIN: Warm EXTREMITIES: No cyanosis/clubbing. No significant pedal edema HEENT: PERRL, EOMI. JVD not elevated NECK: Supple. Trachea is midline. CHEST: Symmetric. Nontender to palpation. LUNGS: Mildly diminished breath sounds in the bases HEART: RRR, S1, S2 +. No murmurs, gallops, or rubs. ABDOMEN: Soft. No organomegaly. NEUROLOGIC: A&O, moving all four extremities. Weight Dosing Weight: 114.4 kg (05/08/24) Medications Medications (29) Active Scheduled: (13) apixaban 5 mg tablet 5 mg 1 tab(s), Oral, BID atorvastatin 40 mg tablet 40 mg 1 tab(s), Oral, qDay cefdinir 300 mg Capsule 300 mg 1 cap(s), Oral, BID emollients (Eucerin Cream) 30gm 1 artemio, Topical, BID gabapentin 300 mg Capsule 300 mg 1 cap(s), Oral, qDay insulin glargine 30 unit(s) 0.3 mL, Subcutaneous (INT), qHS insulin lispro 100 units/mL Soln (3 mL) Give 0-10 units/dose, Subcutaneous, TIDAC metoprolol succinate 100 mg ER tablet 100 mg 1 tab(s), Oral, BID miconazole topical 2% Powder 1 artemio, Topical, BID minocycline 100 mg Capsule 100 mg 1 cap(s), Oral, q12h omeprazole [address] capsule 40 mg 1 cap(s), Oral, BID sodium hypochlorite topical 0.25% Soln 1 artemio, Topical, BID stomahesive in aquaphor 1oz 1 artemio, Topical, amhs Continuous: (1) NS (0.9% nacl) 1,000 mL 1,000 mL, Intravenous, 75 mL/hr PRN: (15) acetaminophen 325 mg Tablet 650 mg 2 tab(s), Oral, q4h albuterol - ipratropium 2.5 mg-0.5 mg/3 mL Inhal Elena UD 3 mL, Inhalation, q4hRT dextrose 50% Solution Disp syringe 50 mL 12.5 gram(s) 25 mL, IV Push, AsDirected magnesium sulfate 4 gram(s)/100mL PMX 4 g 100 mL, IV Piggyback, AsDirected magnesium sulfate 50% (500mg/mL) 6 g 12 mL, IV Piggyback, AsDirected magnesium sulfate PMX 2 g 50 mL, IV Piggyback, AsDirected melatonin 3 mg tablet 6 mg 2 tab(s), Oral, qHS morphine 2 mg/mL 1 mL syringe 2 mg 1 mL, IV Push, q6hr ondansetron 2 mg/ 1 mL 2 mL INJ 4 mg 2 mL, IV Push, q4h oxycodone 5 mg tablet (immediate release) 5 mg 1 tab(s), Oral, q6hr polyethylene glycol 3350 - UD packet 17 gram(s) 15 mL, Oral, qHS potassium chloride (PMX) 20 mEq/100 mL 20 mEq 100 mL, IV Piggyback, AsDirected potassium chloride 20 mEq ER tablet 20 mEq 1 tab(s), Oral, AsDirected potassium chloride 20 mEq ER tablet 40 mEq 2 tab(s), Oral, AsDirected potassium chloride 20 mEq ER tablet 40 mEq 2 tab(s), Oral, AsDirected Lab Results 05/14 04:41 WBC: 6.8 Hgb: 8.3 L Hct: 24.8 L Platelet: 121 L Neutrophil %: 59.8 Glucose Level: 160 H Sodium Level: 129 L Potassium Level: 5.1 H BUN: 59.0 H Creatinine Lvl (s): 3.28 H 05/13 16:39 Glucose Level: 166 H Sodium Level: 132 L Potassium Level: 5.4 H BUN: 62.0 H Creatinine Lvl (s): 3.25 H 05/13 06:09 WBC: 7.4 Hgb: 8.2 L Hct: 25.1 L Platelet: 101 L Neutrophil %: 65.5 Glucose Level: 161 H Sodium Level: 131 L Potassium Level: 5.1 H BUN: 56.0 H Creatinine Lvl (s): 3.12 H EKG No qualifying data available. Assessment/Plan Atypical chest pain (nuclear stress test negative) Nonischemic cardiomyopathy, HFrEF 25-30% (per echo in April 2024) Paroxysmal atrial fibrillation (on Eliquis) Chronic bifascicular block (LPHB+RBBB), QRS 170 ms GENE on CKD IIIb (baseline creatinine 1.9 2.0) Claire's gangrene s/p debridements, on antibiotics Type 2 diabetes mellitus Essential hypertension Dyslipidemia New onset thrombocytopenia, possibly linezolid induced Plan: Creatinine continues to worsen, 3.28 this morning. Nephrology on board, recommending IV hydration today and empirical dose of IV steroids for possible interstitial nephritis. Appreciate their recommendations. Will hold off on re-initiating SGLT2i due to recent Claire's gangrene. Will hold off on discharge plan until GENE improves. Digitally Signed by JC OROZCO MD on 05/14/2024 12:[address] [facility] [id number] Nurse Progress note Students documentation was reviewed, and all medications were verified prior to administration Digitally Signed by Ana Armijo RN on 05/14/2024 02:[address] [facility] [id number] Cardiology Progress note Date of Service 05/14/24 Subjective Patient was seen at bedside. Denies chest pain/orthopnea/PND at present.No new complaints. No acuteevents overnight. Objective Vitals and Measurements T: 36.8 C (Oral) TMIN: 36.6 C (Oral) TMAX: 37.0 C (Oral) HR: 88 (Monitored) RR: 16 BP: 151/80 SpO2: 93% Intake and Output 7AM Yesterday to 7AM Today Intake and Output (Last 24 hours) Intake Oral Intake 480.00 Output Urine Voided 975.00 Urinary Catheter Output: 900.00 Stool Count 2.00 Total Summary Total Intake 480.00 Total Output 1875.00 Fluid Balance -1395.00 Physical Exam GENERAL APPEARANCE: Lying on bed; _ SKIN: Warm EXTREMITIES: No cyanosis/clubbing. No significant pedal edema HEENT: PERRL, EOMI. JVD not elevated NECK: Supple. Trachea is midline. CHEST: Symmetric. Nontender to palpation. LUNGS: Mildly diminished breath sounds in the bases HEART: RRR, S1, S2 +. No murmurs, gallops, or rubs. ABDOMEN: Soft. No organomegaly. NEUROLOGIC: A&O, moving all four extremities. Weight Dosing Weight: 114.4 kg (05/08/24) Medications Medications (29) Active Scheduled: (13) apixaban 5 mg tablet 5 mg 1 tab(s), Oral, BID atorvastatin 40 mg tablet 40 mg 1 tab(s), Oral, qDay cefdinir 300 mg Capsule 300 mg 1 cap(s), Oral, BID emollients (Eucerin Cream) 30gm 1 artemio, Topical, BID gabapentin 300 mg Capsule 300 mg 1 cap(s), Oral, qDay insulin glargine 30 unit(s) 0.3 mL, Subcutaneous (INT), qHS insulin lispro 100 units/mL Soln (3 mL) Give 0-10 units/dose, Subcutaneous, TIDAC metoprolol succinate 100 mg ER tablet 100 mg 1 tab(s), Oral, BID miconazole topical 2% Powder 1 artemio, Topical, BID minocycline 100 mg Capsule 100 mg 1 cap(s), Oral, q12h omeprazole [address] capsule 40 mg 1 cap(s), Oral, BID sodium hypochlorite topical 0.25% Soln 1 artemio, Topical, BID stomahesive in aquaphor 1oz 1 artemio, Topical, amhs Continuous: (1) NS (0.9% nacl) 1,000 mL 1,000 mL, Intravenous, 75 mL/hr PRN: (15) acetaminophen 325 mg Tablet 650 mg 2 tab(s), Oral, q4h albuterol - ipratropium 2.5 mg-0.5 mg/3 mL Inhal Elena UD 3 mL, Inhalation, q4hRT dextrose 50% Solution Disp syringe 50 mL 12.5 gram(s) 25 mL, IV Push, AsDirected magnesium sulfate 4 gram(s)/100mL PMX 4 g 100 mL, IV Piggyback, AsDirected magnesium sulfate 50% (500mg/mL) 6 g 12 mL, IV Piggyback, AsDirected magnesium sulfate PMX 2 g 50 mL, IV Piggyback, AsDirected melatonin 3 mg tablet 6 mg 2 tab(s), Oral, qHS morphine 2 mg/mL 1 mL syringe 2 mg 1 mL, IV Push, q6hr ondansetron 2 mg/ 1 mL 2 mL INJ 4 mg 2 mL, IV Push, q4h oxycodone 5 mg tablet (immediate release) 5 mg 1 tab(s), Oral, q6hr polyethylene glycol 3350 - UD packet 17 gram(s) 15 mL, Oral, qHS potassium chloride (PMX) 20 mEq/100 mL 20 mEq 100 mL, IV Piggyback, AsDirected potassium chloride 20 mEq ER tablet 20 mEq 1 tab(s), Oral, AsDirected potassium chloride 20 mEq ER tablet 40 mEq 2 tab(s), Oral, AsDirected potassium chloride 20 mEq ER tablet 40 mEq 2 tab(s), Oral, AsDirected Lab Results 05/14 04:41 WBC: 6.8 Hgb: 8.3 L Hct: 24.8 L Platelet: 121 L Neutrophil %: 59.8 Glucose Level: 160 H Sodium Level: 129 L Potassium Level: 5.1 H BUN: 59.0 H Creatinine Lvl (s): 3.28 H 05/13 16:39 Glucose Level: 166 H Sodium Level: 132 L Potassium Level: 5.4 H BUN: 62.0 H Creatinine Lvl (s): 3.25 H 05/13 06:09 WBC: 7.4 Hgb: 8.2 L Hct: 25.1 L Platelet: 101 L Neutrophil %: 65.5 Glucose Level: 161 H Sodium Level: 131 L Potassium Level: 5.1 H BUN: 56.0 H Creatinine Lvl (s): 3.12 H EKG No qualifying data available. Assessment/Plan Atypical chest pain (nuclear stress test negative) Nonischemic cardiomyopathy, HFrEF 25-30% (per echo in April 2024) Paroxysmal atrial fibrillation (on Eliquis) Chronic bifascicular block (LPHB+RBBB), QRS 170 ms GENE on CKD IIIb (baseline creatinine 1.9 2.0) Claire's gangrene s/p debridements, on antibiotics Type 2 diabetes mellitus Essential hypertension Dyslipidemia New onset thrombocytopenia, possibly linezolid induced Plan: Creatinine continues to worsen, 3.28 this morning. Nephrology on board, recommending IV hydration today and empirical dose of IV steroids for possible interstitial nephritis. Appreciate their recommendations. Will hold off on re-initiating SGLT2i due to recent Claire's gangrene. Will hold off on discharge plan until GENE improves. Digitally Signed by JC OROZCO MD on 05/14/2024 12:[address] [facility] [id number] Nephrology Progress note Subjective Patient seen and examined resting comfortably. Remains on room air saturating at 95%. Discussed with nursing no active issues overnight. Objective Vitals and Measurements T: 36.6 C (Oral) TMIN: 36.6 C (Oral) TMAX: 37.0 C (Oral) HR: 89 (Monitored) RR: 16 BP: 119/65 SpO2:95% Intake and Output 7AM Yesterday to 7AM Today Intake and Output (Last 24 hours) Intake Oral Intake 480.00 Output Urine Voided 975.00 Urinary Catheter Output: 500.00 Stool Count 2.00 Total Summary Total Intake 480.00 Total Output 1475.00 Fluid Balance -995.00 Physical Exam Gen: comfortable, No sign of any acute distress HEENT: No pallor, No icterus, no JVD, no carotid bruit Lungs: Clear to auscultation, good air entry CVS: Regular rate and rhythm, no murmur, no rubs Abd: Soft, nontender, no organomegaly, No flank pain Neuro: Alert, no deficits Ext: + 2 edema [1] Weight Dosing Weight: 114.4 kg (05/08/24) Medications Medications (28) Active Scheduled: (13) apixaban 5 mg tablet 5 mg 1 tab(s), Oral, BID atorvastatin 40 mg tablet 40 mg 1 tab(s), Oral, qDay cefdinir 300 mg Capsule 300 mg 1 cap(s), Oral, BID emollients (Eucerin Cream) 30gm 1 artemio, Topical, BID gabapentin 300 mg Capsule 300 mg 1 cap(s), Oral, qDay insulin glargine 30 unit(s) 0.3 mL, Subcutaneous (INT), qHS insulin lispro 100 units/mL Soln (3 mL) Give 0-10 units/dose, Subcutaneous, TIDAC metoprolol succinate 100 mg ER tablet 100 mg 1 tab(s), Oral, BID miconazole topical 2% Powder 1 artemio, Topical, BID minocycline 100 mg Capsule 100 mg 1 cap(s), Oral, q12h omeprazole [address] capsule 40 mg 1 cap(s), Oral, BID sodium hypochlorite topical 0.25% Soln 1 artemio, Topical, BID stomahesive in aquaphor 1oz 1 artemio, Topical, amhs Continuous: (0) PRN: (15) acetaminophen 325 mg Tablet 650 mg 2 tab(s), Oral, q4h albuterol - ipratropium 2.5 mg-0.5 mg/3 mL Inhal Elena UD 3 mL, Inhalation, q4hRT dextrose 50% Solution Disp syringe 50 mL 12.5 gram(s) 25 mL, IV Push, AsDirected magnesium sulfate 4 gram(s)/100mL PMX 4 g 100 mL, IV Piggyback, AsDirected magnesium sulfate 50% (500mg/mL) 6 g 12 mL, IV Piggyback, AsDirected magnesium sulfate PMX 2 g 50 mL, IV Piggyback, AsDirected melatonin 3 mg tablet 6 mg 2 tab(s), Oral, qHS morphine 2 mg/mL 1 mL syringe 2 mg 1 mL, IV Push, q6hr ondansetron 2 mg/ 1 mL 2 mL INJ 4 mg 2 mL, IV Push, q4h oxycodone 5 mg tablet (immediate release) 5 mg 1 tab(s), Oral, q6hr polyethylene glycol 3350 - UD packet 17 gram(s) 15 mL, Oral, qHS potassium chloride (PMX) 20 mEq/100 mL 20 mEq 100 mL, IV Piggyback, AsDirected potassium chloride 20 mEq ER tablet 20 mEq 1 tab(s), Oral, AsDirected potassium chloride 20 mEq ER tablet 40 mEq 2 tab(s), Oral, AsDirected potassium chloride 20 mEq ER tablet 40 mEq 2 tab(s), Oral, AsDirected Lab Results 05/14 04:41 WBC: 6.8 Hgb: 8.3 L Hct: 24.8 L Platelet: 121 L Neutrophil %: 59.8 Glucose Level: 160 H Sodium Level: 129 L Potassium Level: 5.1 H BUN: 59.0 H Creatinine Lvl (s): 3.28 H 05/13 16:39 Glucose Level: 166 H Sodium Level: 132 L Potassium Level: 5.4 H BUN: 62.0 H Creatinine Lvl (s): 3.25 H 05/13 06:09 WBC: 7.4 Hgb: 8.2 L Hct: 25.1 L Platelet: 101 L Neutrophil %: 65.5 Glucose Level: 161 H Sodium Level: 131 L Potassium Level: 5.1 H BUN: 56.0 H Creatinine Lvl (s): 3.12 H EKG No qualifying data available. Assessment/Plan 1. Acute kidney injury with underlying chronic kidney disease stage IIIb 2. Proximal atrial fibrillation 3. 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 Hypertension 5. Dyslipidemia 6. Diabetes [2] Renal function is Worse today. Urine output remains adequate. Does not appear to be volume overloaded. Agree with holding diuretics. Maintain IV hydration. Hyponatremia Noted probably as a result of renal insufficiency as well. One-time dose of IV Solu-Medrol for possible interstitial nephritis. Will otherwise continue to follow labs. Hold diuretics and Entresto to renal function back to baseline. Follow labs. See orders. [1] Progress Note; DAMARI FATIMA MD 05/13/2024 10:53 EDT [2] Progress Note; DAMARI FATIMA MD 05/13/2024 10:53 EDT Digitally Signed by DAMARI FATIMA MD on 05/14/2024 08:[address] [facility] [id number] Cardiology Progress note Date of Service 05/13/2024 Subjective Patient was seen at bedside. Denies chest pain/orthopnea/PND at present.No new complaints. No acuteevents overnight. Objective Vitals and Measurements T: 36.8 C (Oral) TMIN: 36.8 C (Oral) TMAX: 36.9 C (Oral) HR: 89 (Monitored) RR: 18 BP: 120/61 SpO2:96% Intake and Output 7AM Yesterday to 7AM Today Intake and Output (Last 24 hours) Intake Oral Intake 360.00 Supplement Intake 0.00 Output Urinary Catheter Output: 1500.00 Stool Count 0.00 Total Summary Total Intake 360.00 Total Output 1500.00 Fluid Balance -1140.00 Physical Exam GENERAL APPEARANCE: Lying on bed; _ SKIN: Warm EXTREMITIES: No cyanosis/clubbing. No significant pedal edema HEENT: PERRL, EOMI. JVD not elevated NECK: Supple. Trachea is midline. CHEST: Symmetric. Nontender to palpation. LUNGS: Mildly diminished breath sounds in the bases HEART: RRR, S1, S2 +. No murmurs, gallops, or rubs. ABDOMEN: Soft. No organomegaly. NEUROLOGIC: A&O, moving all four extremities. Weight Dosing Weight: 114.4 kg (05/08/24) Medications Medications (30) Active Scheduled: (14) apixaban 5 mg tablet 5 mg 1 tab(s), Oral, BID atorvastatin 40 mg tablet 40 mg 1 tab(s), Oral, qDay cefdinir 300 mg Capsule 300 mg 1 cap(s), Oral, BID emollients (Eucerin Cream) 30gm 1 artemio, Topical, BID gabapentin 300 mg Capsule 300 mg 1 cap(s), Oral, qDay insulin glargine 30 unit(s) 0.3 mL, Subcutaneous (INT), qHS insulin lispro 100 units/mL Soln (3 mL) Give 0-10 units/dose, Subcutaneous, TIDAC linezolid 600 mg tablet 600 mg 1 tab(s), Oral, BID metoprolol succinate 100 mg ER tablet 100 mg 1 tab(s), Oral, BID miconazole topical 2% Powder 1 artemio, Topical, BID minocycline 100 mg Capsule 100 mg 1 cap(s), Oral, q12h omeprazole [address] capsule 40 mg 1 cap(s), Oral, BID sodium hypochlorite topical 0.25% Soln 1 artemio, Topical, BID stomahesive in aquaphor 1oz 1 artemio, Topical, amhs Continuous: (1) NS (0.9% nacl) 1,000 mL 1,000 mL, Intravenous, 50 mL/hr PRN: (15) acetaminophen 325 mg Tablet 650 mg 2 tab(s), Oral, q4h albuterol - ipratropium 2.5 mg-0.5 mg/3 mL Inhal Elena UD 3 mL, Inhalation, q4hRT dextrose 50% Solution Disp syringe 50 mL 12.5 gram(s) 25 mL, IV Push, AsDirected magnesium sulfate 4 gram(s)/100mL PMX 4 g 100 mL, IV Piggyback, AsDirected magnesium sulfate 50% (500mg/mL) 6 g 12 mL, IV Piggyback, AsDirected magnesium sulfate PMX 2 g 50 mL, IV Piggyback, AsDirected melatonin 3 mg tablet 6 mg 2 tab(s), Oral, qHS morphine 2 mg/mL 1 mL syringe 2 mg 1 mL, IV Push, q6hr ondansetron 2 mg/ 1 mL 2 mL INJ 4 mg 2 mL, IV Push, q4h oxycodone 5 mg tablet (immediate release) 5 mg 1 tab(s), Oral, q6hr polyethylene glycol 3350 - UD packet 17 gram(s) 15 mL, Oral, qHS potassium chloride (PMX) 20 mEq/100 mL 20 mEq 100 mL, IV Piggyback, AsDirected potassium chloride 20 mEq ER tablet 20 mEq 1 tab(s), Oral, AsDirected potassium chloride 20 mEq ER tablet 40 mEq 2 tab(s), Oral, AsDirected potassium chloride 20 mEq ER tablet 40 mEq 2 tab(s), Oral, AsDirected Lab Results 05/13 06:09 WBC: 7.4 Hgb: 8.2 L Hct: 25.1 L Platelet: 101 L Neutrophil %: 65.5 Glucose Level: 161 H Sodium Level: 131 L Potassium Level: 5.1 H BUN: 56.0 H Creatinine Lvl (s): 3.12 H 05/12 07:29 Potassium Level: 5.2 H EKG No qualifying data available. Assessment/Plan Atypical chest pain (nuclear stress test negative) Nonischemic cardiomyopathy, HFrEF 25-30% (per echo in April 2024) Paroxysmal atrial fibrillation (on Eliquis) Chronic bifascicular block (LPHB+RBBB), QRS 170 ms GENE on CKD IIIb (baseline creatinine 1.9 2.0) Claire's gangrene s/p debridements, on antibiotics Type 2 diabetes mellitus Essential hypertension Dyslipidemia New onset thrombocytopenia, possibly linezolid induced Plan: Creatinine worsened to 3.1 this morning, will start patient on IV NS 50 cc/h x 10 hours and repeat BMP this evening. Will touch base with ID regarding alternatives to linezolid for underlying Claire's gangrene given new onset thrombocytopenia. Will hold off on re-initiating SGLT2i due to recent Cliare's gangrene. Digitally Signed by JC OROZCO MD on 05/13/2024 04:[address] [facility] [id number] Cardiology Progress note Date of Service 05/13/2024 Subjective Patient was seen at bedside. Denies chest pain/orthopnea/PND at present.No new complaints. No acuteevents overnight. Objective Vitals and Measurements T: 36.8 C (Oral) TMIN: 36.8 C (Oral) TMAX: 36.9 C (Oral) HR: 89 (Monitored) RR: 18 BP: 120/61 SpO2:96% Intake and Output 7AM Yesterday to 7AM Today Intake and Output (Last 24 hours) Intake Oral Intake 360.00 Supplement Intake 0.00 Output Urinary Catheter Output: 1500.00 Stool Count 0.00 Total Summary Total Intake 360.00 Total Output 1500.00 Fluid Balance -1140.00 Physical Exam GENERAL APPEARANCE: Lying on bed; _ SKIN: Warm EXTREMITIES: No cyanosis/clubbing. No significant pedal edema HEENT: PERRL, EOMI. JVD not elevated NECK: Supple. Trachea is midline. CHEST: Symmetric. Nontender to palpation. LUNGS: Mildly diminished breath sounds in the bases HEART: RRR, S1, S2 +. No murmurs, gallops, or rubs. ABDOMEN: Soft. No organomegaly. NEUROLOGIC: A&O, moving all four extremities. Weight Dosing Weight: 114.4 kg (05/08/24) Medications Medications (30) Active Scheduled: (14) apixaban 5 mg tablet 5 mg 1 tab(s), Oral, BID atorvastatin 40 mg tablet 40 mg 1 tab(s), Oral, qDay cefdinir 300 mg Capsule 300 mg 1 cap(s), Oral, BID emollients (Eucerin Cream) 30gm 1 artemio, Topical, BID gabapentin 300 mg Capsule 300 mg 1 cap(s), Oral, qDay insulin glargine 30 unit(s) 0.3 mL, Subcutaneous (INT), qHS insulin lispro 100 units/mL Soln (3 mL) Give 0-10 units/dose, Subcutaneous, TIDAC linezolid 600 mg tablet 600 mg 1 tab(s), Oral, BID metoprolol succinate 100 mg ER tablet 100 mg 1 tab(s), Oral, BID miconazole topical 2% Powder 1 artemio, Topical, BID minocycline 100 mg Capsule 100 mg 1 cap(s), Oral, q12h omeprazole [address] capsule 40 mg 1 cap(s), Oral, BID sodium hypochlorite topical 0.25% Soln 1 artemio, Topical, BID stomahesive in aquaphor 1oz 1 artemio, Topical, amhs Continuous: (1) NS (0.9% nacl) 1,000 mL 1,000 mL, Intravenous, 50 mL/hr PRN: (15) acetaminophen 325 mg Tablet 650 mg 2 tab(s), Oral, q4h albuterol - ipratropium 2.5 mg-0.5 mg/3 mL Inhal Elena UD 3 mL, Inhalation, q4hRT dextrose 50% Solution Disp syringe 50 mL 12.5 gram(s) 25 mL, IV Push, AsDirected magnesium sulfate 4 gram(s)/100mL PMX 4 g 100 mL, IV Piggyback, AsDirected magnesium sulfate 50% (500mg/mL) 6 g 12 mL, IV Piggyback, AsDirected magnesium sulfate PMX 2 g 50 mL, IV Piggyback, AsDirected melatonin 3 mg tablet 6 mg 2 tab(s), Oral, qHS morphine 2 mg/mL 1 mL syringe 2 mg 1 mL, IV Push, q6hr ondansetron 2 mg/ 1 mL 2 mL INJ 4 mg 2 mL, IV Push, q4h oxycodone 5 mg tablet (immediate release) 5 mg 1 tab(s), Oral, q6hr polyethylene glycol 3350 - UD packet 17 gram(s) 15 mL, Oral, qHS potassium chloride (PMX) 20 mEq/100 mL 20 mEq 100 mL, IV Piggyback, AsDirected potassium chloride 20 mEq ER tablet 20 mEq 1 tab(s), Oral, AsDirected potassium chloride 20 mEq ER tablet 40 mEq 2 tab(s), Oral, AsDirected potassium chloride 20 mEq ER tablet 40 mEq 2 tab(s), Oral, AsDirected Lab Results 05/13 06:09 WBC: 7.4 Hgb: 8.2 L Hct: 25.1 L Platelet: 101 L Neutrophil %: 65.5 Glucose Level: 161 H Sodium Level: 131 L Potassium Level: 5.1 H BUN: 56.0 H Creatinine Lvl (s): 3.12 H 05/12 07:29 Potassium Level: 5.2 H EKG No qualifying data available. Assessment/Plan Atypical chest pain (nuclear stress test negative) Nonischemic cardiomyopathy, HFrEF 25-30% (per echo in April 2024) Paroxysmal atrial fibrillation (on Eliquis) Chronic bifascicular block (LPHB+RBBB), QRS 170 ms GENE on CKD IIIb (baseline creatinine 1.9 2.0) Claire's gangrene s/p debridements, on antibiotics Type 2 diabetes mellitus Essential hypertension Dyslipidemia New onset thrombocytopenia, possibly linezolid induced Plan: Creatinine worsened to 3.1 this morning, will start patient on IV NS 50 cc/h x 10 hours and repeat BMP this evening. Will touch base with ID regarding alternatives to linezolid for underlying Claire's gangrene given new onset thrombocytopenia. Will hold off on re-initiating SGLT2i due to recent Claire's gangrene. Digitally Signed by JC OROZCO MD on 05/13/2024 04:[address] [facility] [id number] Infectious disease Progress note Subjective Patient seen and examined labs and notes reviewed Was contacted by EP, platelets are dropping on Zyvox Objective Vitals and Measurements T: 36.9 C (Oral) TMIN: 36.8 C (Oral) TMAX: 36.9 C (Oral) HR: 87 (Monitored) RR: 18 BP: 114/58 SpO2:96% Intake and Output 7AM Yesterday to 7AM Today Intake and Output (Last 24 hours) Intake Oral Intake 760.00 Supplement Intake 0.00 Output Urinary Catheter Output: 1850.00 Stool Count 0.00 Total Summary Total Intake 760.00 Total Output 1850.00 Fluid Balance -1090.00 Physical Exam Awake alert oriented Lungs are clear Heart is regular rhythm Abdomen soft with no tenderness Scrotal area with much improvement in the erythema and drainage Incision is healing well No acute neurodeficits Weight Dosing Weight: 114.4 kg (05/08/24) Medications Medications (30) Active Scheduled: (14) apixaban 5 mg tablet 5 mg 1 tab(s), Oral, BID atorvastatin 40 mg tablet 40 mg 1 tab(s), Oral, qDay cefdinir 300 mg Capsule 300 mg 1 cap(s), Oral, BID emollients (Eucerin Cream) 30gm 1 artemio, Topical, BID gabapentin 300 mg Capsule 300 mg 1 cap(s), Oral, qDay insulin glargine 30 unit(s) 0.3 mL, Subcutaneous (INT), qHS insulin lispro 100 units/mL Soln (3 mL) Give 0-10 units/dose, Subcutaneous, TIDAC linezolid 600 mg tablet 600 mg 1 tab(s), Oral, BID metoprolol succinate 100 mg ER tablet 100 mg 1 tab(s), Oral, BID miconazole topical 2% Powder 1 artemio, Topical, BID minocycline 100 mg Capsule 100 mg 1 cap(s), Oral, q12h omeprazole [address] capsule 40 mg 1 cap(s), Oral, BID sodium hypochlorite topical 0.25% Soln 1 artemio, Topical, BID stomahesive in aquaphor 1oz 1 artemio, Topical, amhs Continuous: (1) NS (0.9% nacl) 1,000 mL 1,000 mL, Intravenous, 50 mL/hr PRN: (15) acetaminophen 325 mg Tablet 650 mg 2 tab(s), Oral, q4h albuterol - ipratropium 2.5 mg-0.5 mg/3 mL Inhal Elena UD 3 mL, Inhalation, q4hRT dextrose 50% Solution Disp syringe 50 mL 12.5 gram(s) 25 mL, IV Push, AsDirected magnesium sulfate 4 gram(s)/100mL PMX 4 g 100 mL, IV Piggyback, AsDirected magnesium sulfate 50% (500mg/mL) 6 g 12 mL, IV Piggyback, AsDirected magnesium sulfate PMX 2 g 50 mL, IV Piggyback, AsDirected melatonin 3 mg tablet 6 mg 2 tab(s), Oral, qHS morphine 2 mg/mL 1 mL syringe 2 mg 1 mL, IV Push, q6hr ondansetron 2 mg/ 1 mL 2 mL INJ 4 mg 2 mL, IV Push, q4h oxycodone 5 mg tablet (immediate release) 5 mg 1 tab(s), Oral, q6hr polyethylene glycol 3350 - UD packet 17 gram(s) 15 mL, Oral, qHS potassium chloride (PMX) 20 mEq/100 mL 20 mEq 100 mL, IV Piggyback, AsDirected potassium chloride 20 mEq ER tablet 20 mEq 1 tab(s), Oral, AsDirected potassium chloride 20 mEq ER tablet 40 mEq 2 tab(s), Oral, AsDirected potassium chloride 20 mEq ER tablet 40 mEq 2 tab(s), Oral, AsDirected Lab Results 05/13 06:09 WBC: 7.4 Hgb: 8.2 L Hct: 25.1 L Platelet: 101 L Neutrophil %: 65.5 Glucose Level: 161 H Sodium Level: 131 L Potassium Level: 5.1 H BUN: 56.0 H Creatinine Lvl (s): 3.12 H 05/12 07:29 Potassium Level: 5.2 H 05/12 04:25 WBC: 10.1 Hgb: 8.8 L Hct: 25.9 L Platelet: 117 L Neutrophil %: 66.1 Glucose Level: 197 H Sodium Level: 131 L Potassium Level: 5.2 H BUN: 55.0 H Creatinine Lvl (s): 2.90 H Imaging Results and Diagnostics NM Myocardial Spect Rest/Stress Result Date: May 08, 2024 Verified By: LAMAR PETTIT MD CLINICAL STATEMENT: chest pain IMPRESSION: No clear evidence of stress-induced ischemia or myocardial infarction. Global hypokinesis with a calculated ejection fraction of 45% and borderline increased end-diastolic volume of 115 mL. No prior studies available for comparison. XR Chest 2 Views Result Date: May 08, 2024 Verified By: LINA ARMANDO MD CLINICAL STATEMENT: IMPRESSION: Mild hazy airspace disease at the right lung base. EKG No qualifying data available. 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 Due to ongoing leukocytosis CT chest abdomenand pelvis has been obtained CT chest shows right lower lobe pneumonia with bilateral pleural effusion. Repeat sputum culture is pending. Patient in interim also developed GI bleed. Patient is afebrile but continues to be in A-fib with RVR and has persistent leukocytosis of 16,000. 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 Tissue cultures obtained 04/16/2024 notable for polymicrobial pathogens including group B strep, Serratia marcescens which is intermediate to Zosyn, staph epi, MRSE, lactobacillus and Enterococcus faecalis which is ampicillin sensitive. Urology evaluated the patient on 04/23/2024 and performed bedside debridement. Plastics on board and following for local wound care #2 GI bleed-patient underwent flexible sigmoidoscopy that showed a rectal ulcer. GI managing. #3 right lower lobe pneumonia with bilateral pleural effusion. Respiratory culture with light Yeast, not Maribell albicans Check LFTS in AM The patient would like to go home as soon as possible, discussed with him the risk and benefit of this approach, genital area is much improved, reviewed labs and data and discussed with patient at length as well as nursing staff Will stop IV antibiotic therapy Will start oral Zyvox, cefdinir and minocycline, if the patient tolerates treatment well then he could be discharged on these antibiotics until May 18, 2024 and see me in the office in 2 to 3 weeks and follow-up with urology closely Please obtain CMP and CBC in 1 week and forward the results to me and urology as well Discussed potential side effects of antibiotic therapy Discussed ways of infection control infection prevention at length in surgical ICU and all his questions were answered 05/13/24: Contacted by EP, concerned platelets are dropping on Zyvox s/p Wound Debridement of perineum by plastics on 05/05, wound cultures show NGTD Will stop Zyvox Recommend to continue minocycline and cefdinir until May 28, 2024 Will follow as needed while in house Follow with urology as an outpatient Discussed with patient and his family at length at bedside We discussed potential side effect of antibiotic therapy and ways of infection control infection prevention Will follow as needed Call for questions I was present for Silva Marrero LPN , and personally directed, all components of the patient's complete evaluation and management documented by the scribe today. I have personally examined the patient and reviewed all diagnostic data. I have reviewed all of this documentation by the scribe. It documents the history obtained, examination performed, diagnostic testing results compiled by him/her,and discharge information. Digitally Signed by Silva Marrero Licensed Scribe on 05/13/2024 01:31 PM Digitally Signed by SON STEEL BA, MD on 05/13/2024 04:[address] [facility] [id number] Nephrology Progress note Subjective Patient seen and examined. He is resting comfortably. Chart was reviewed. Spoke with nursing. Objective Vitals and Measurements T: 36.9 C (Oral) TMIN: 36.8 C (Oral) TMAX: 36.9 C (Oral) HR: 88 (Apical) RR: 16 BP: 137/72 SpO2: 94% Intake and Output 7AM Yesterday to 7AM Today Intake and Output (Last 24 hours) Intake Oral Intake 760.00 Supplement Intake 0.00 Output Urinary Catheter Output: 1850.00 Stool Count 0.00 Total Summary Total Intake 760.00 Total Output 1850.00 Fluid Balance -1090.00 Physical Exam Gen: comfortable, No sign of any acute distress HEENT: No pallor, No icterus, no JVD, no carotid bruit Lungs: Clear to auscultation, good air entry CVS: Regular rate and rhythm, no murmur, no rubs Abd: Soft, nontender, no organomegaly, No flank pain Neuro: Alert, no deficits Ext: + 2 edema [1] Weight Dosing Weight: 114.4 kg (05/08/24) Medications Medications (30) Active Scheduled: (14) apixaban 5 mg tablet 5 mg 1 tab(s), Oral, BID atorvastatin 40 mg tablet 40 mg 1 tab(s), Oral, qDay cefdinir 300 mg Capsule 300 mg 1 cap(s), Oral, BID emollients (Eucerin Cream) 30gm 1 artemio, Topical, BID gabapentin 300 mg Capsule 300 mg 1 cap(s), Oral, qDay insulin glargine 30 unit(s) 0.3 mL, Subcutaneous (INT), qHS insulin lispro 100 units/mL Soln (3 mL) Give 0-10 units/dose, Subcutaneous, TIDAC linezolid 600 mg tablet 600 mg 1 tab(s), Oral, BID metoprolol succinate 100 mg ER tablet 100 mg 1 tab(s), Oral, BID miconazole topical 2% Powder 1 artemio, Topical, BID minocycline 100 mg Capsule 100 mg 1 cap(s), Oral, q12h omeprazole [address] capsule 40 mg 1 cap(s), Oral, BID sodium hypochlorite topical 0.25% Soln 1 artemio, Topical, BID stomahesive in aquaphor 1oz 1 artemio, Topical, amhs Continuous: (1) NS (0.9% nacl) 1,000 mL 1,000 mL, Intravenous, 50 mL/hr PRN: (15) acetaminophen 325 mg Tablet 650 mg 2 tab(s), Oral, q4h albuterol - ipratropium 2.5 mg-0.5 mg/3 mL Inhal Elena UD 3 mL, Inhalation, q4hRT dextrose 50% Solution Disp syringe 50 mL 12.5 gram(s) 25 mL, IV Push, AsDirected magnesium sulfate 4 gram(s)/100mL PMX 4 g 100 mL, IV Piggyback, AsDirected magnesium sulfate 50% (500mg/mL) 6 g 12 mL, IV Piggyback, AsDirected magnesium sulfate PMX 2 g 50 mL, IV Piggyback, AsDirected melatonin 3 mg tablet 6 mg 2 tab(s), Oral, qHS morphine 2 mg/mL 1 mL syringe 2 mg 1 mL, IV Push, q6hr ondansetron 2 mg/ 1 mL 2 mL INJ 4 mg 2 mL, IV Push, q4h oxycodone 5 mg tablet (immediate release) 5 mg 1 tab(s), Oral, q6hr polyethylene glycol 3350 - UD packet 17 gram(s) 15 mL, Oral, qHS potassium chloride (PMX) 20 mEq/100 mL 20 mEq 100 mL, IV Piggyback, AsDirected potassium chloride 20 mEq ER tablet 20 mEq 1 tab(s), Oral, AsDirected potassium chloride 20 mEq ER tablet 40 mEq 2 tab(s), Oral, AsDirected potassium chloride 20 mEq ER tablet 40 mEq 2 tab(s), Oral, AsDirected Lab Results 05/13 06:09 WBC: 7.4 Hgb: 8.2 L Hct: 25.1 L Platelet: 101 L Neutrophil %: 65.5 Glucose Level: 161 H Sodium Level: 131 L Potassium Level: 5.1 H BUN: 56.0 H Creatinine Lvl (s): 3.12 H 05/12 07:29 Potassium Level: 5.2 H 05/12 04:25 WBC: 10.1 Hgb: 8.8 L Hct: 25.9 L Platelet: 117 L Neutrophil %: 66.1 Glucose Level: 197 H Sodium Level: 131 L Potassium Level: 5.2 H BUN: 55.0 H Creatinine Lvl (s): 2.90 H EKG No qualifying data available. Assessment/Plan 1. Acute kidney injury with underlying chronic kidney disease stage IIIb 2. Proximal atrial fibrillation 3. 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 Hypertension 5. Dyslipidemia 6. Diabetes [2] Renal function slightly worse from baseline. Appreciate primary team input. Continue with IV hydration. Mild hyponatremia probably as a result of renal sufficiency. Diuretics on hold. Blood pressure stable maintain current antihypertensive medications. Follow labs. See orders. [1] Progress Note; DAMARI FATIMA MD 05/12/2024 09:49 EDT [2] Progress Note; DAMARI FATIMA MD 05/12/2024 09:49 EDT Digitally Signed by DAMARI FATIMA MD on 05/13/2024 11:[address] [facility] [id number] Cardiology Progress note Date of Service May 12, 2024 Subjective Patient was seen at bedside. Denies chest pain/orthopnea/PND at present.No new complaints. No acuteevents overnight. Objective Vitals and Measurements T: 36.8 C (Oral) TMIN: 36.7 C (Oral) TMAX: 36.9 C (Oral) HR: 88 (Monitored) RR: 16 BP: 118/64 SpO2:95% Intake and Output 7AM Yesterday to 7AM Today Intake and Output (Last 24 hours) Intake Oral Intake 1035.00 Supplement Intake 0.00 Output Urinary Catheter Output: 2550.00 Stool Count 0.00 Total Summary Total Intake 1035.00 Total Output 2550.00 Fluid Balance -1515.00 Physical Exam GENERAL APPEARANCE: Lying on bed; _ SKIN: Warm EXTREMITIES: No cyanosis/clubbing. No significant pedal edema HEENT: PERRL, EOMI. JVD not elevated NECK: Supple. Trachea is midline. CHEST: Symmetric. Nontender to palpation. LUNGS: Mildly diminished basal breath sounds/few crackles HEART: RRR, S1, S2 +. No murmurs, gallops, or rubs. ABDOMEN: Soft. No organomegaly. NEUROLOGIC: A&O, moving all four extremities. Weight Dosing Weight: 114.4 kg (05/08/24) Medications Medications (30) Active Scheduled: (15) albumin human 25% (50 mL) vial 25 gram(s) 100 mL, IV Piggyback (MED), BID apixaban 5 mg tablet 5 mg 1 tab(s), Oral, BID atorvastatin 40 mg tablet 40 mg 1 tab(s), Oral, qDay cefdinir 300 mg Capsule 300 mg 1 cap(s), Oral, BID emollients (Eucerin Cream) 30gm 1 artemio, Topical, BID gabapentin 300 mg Capsule 300 mg 1 cap(s), Oral, qDay insulin glargine 30 unit(s) 0.3 mL, Subcutaneous (INT), qHS insulin lispro 100 units/mL Soln (3 mL) Give 0-10 units/dose, Subcutaneous, TIDAC linezolid 600 mg tablet 600 mg 1 tab(s), Oral, BID metoprolol succinate 100 mg ER tablet 100 mg 1 tab(s), Oral, BID miconazole topical 2% Powder 1 artemio, Topical, BID minocycline 100 mg Capsule 100 mg 1 cap(s), Oral, q12h omeprazole [address] capsule 40 mg 1 cap(s), Oral, BID sodium hypochlorite topical 0.25% Soln 1 artemio, Topical, BID stomahesive in aquaphor 1oz 1 artemio, Topical, amhs Continuous: (0) PRN: (15) acetaminophen 325 mg Tablet 650 mg 2 tab(s), Oral, q4h albuterol - ipratropium 2.5 mg-0.5 mg/3 mL Inhal Elena UD 3 mL, Inhalation, q4hRT dextrose 50% Solution Disp syringe 50 mL 12.5 gram(s) 25 mL, IV Push, AsDirected magnesium sulfate 4 gram(s)/100mL PMX 4 g 100 mL, IV Piggyback, AsDirected magnesium sulfate 50% (500mg/mL) 6 g 12 mL, IV Piggyback, AsDirected magnesium sulfate PMX 2 g 50 mL, IV Piggyback, AsDirected melatonin 3 mg tablet 6 mg 2 tab(s), Oral, qHS morphine 2 mg/mL 1 mL syringe 2 mg 1 mL, IV Push, q6hr ondansetron 2 mg/ 1 mL 2 mL INJ 4 mg 2 mL, IV Push, q4h oxycodone 5 mg tablet (immediate release) 5 mg 1 tab(s), Oral, q6hr polyethylene glycol 3350 - UD packet 17 gram(s) 15 mL, Oral, qHS potassium chloride (PMX) 20 mEq/100 mL 20 mEq 100 mL, IV Piggyback, AsDirected potassium chloride 20 mEq ER tablet 20 mEq 1 tab(s), Oral, AsDirected potassium chloride 20 mEq ER tablet 40 mEq 2 tab(s), Oral, AsDirected potassium chloride 20 mEq ER tablet 40 mEq 2 tab(s), Oral, AsDirected Lab Results 05/12 07:29 Potassium Level: 5.2 H 05/12 04:25 WBC: 10.1 Hgb: 8.8 L Hct: 25.9 L Platelet: 117 L Neutrophil %: 66.1 Glucose Level: 197 H Sodium Level: 131 L Potassium Level: 5.2 H BUN: 55.0 H Creatinine Lvl (s): 2.90 H 05/11 03:15 WBC: 9.8 Hgb: 9.3 L Hct: 27.3 L Platelet: 123 L Neutrophil %: 63.6 Glucose Level: 167 H Sodium Level: 133 L Potassium Level: 4.8 BUN: 48.0 H Creatinine Lvl (s): 2.42 H EKG No qualifying data available. Assessment/Plan Atypical chest pain (nuclear stress test negative) Nonischemic cardiomyopathy, HFrEF 25-30% (per echo in April 2024) Paroxysmal atrial fibrillation (on Eliquis) Chronic bifascicular block (LPHB+RBBB), QRS 170 ms GENE on CKD IIIb (baseline creatinine 1.9 2.0) Claire's gangrene s/p debridements, on antibiotics Type 2 diabetes mellitus Essential hypertension Dyslipidemia Plan: Creatinine worsened to 2.9 this morning, will continue holding off on Bumex/Entresto. EF seems to be approximately 40-45% on echo this morning, IVC 1.8 cm, collapsing >50% with respiration. -- Will dose IV Albumin x 2 doses today given GENE Will continue Toprol-XL 100 mg p.o. BID for rate control of underlying A-fib. Will hold off on re-initiating SGLT2i due to recent Claire's gangrene. Digitally Signed by JC OROZCO MD on 05/12/2024 02:[address] [facility] [id number] Cardiology Progress note Date of Service May 12, 2024 Subjective Patient was seen at bedside. Denies chest pain/orthopnea/PND at present.No new complaints. No acuteevents overnight. Objective Vitals and Measurements T: 36.8 C (Oral) TMIN: 36.7 C (Oral) TMAX: 36.9 C (Oral) HR: 88 (Monitored) RR: 16 BP: 118/64 SpO2:95% Intake and Output 7AM Yesterday to 7AM Today Intake and Output (Last 24 hours) Intake Oral Intake 1035.00 Supplement Intake 0.00 Output Urinary Catheter Output: 2550.00 Stool Count 0.00 Total Summary Total Intake 1035.00 Total Output 2550.00 Fluid Balance -1515.00 Physical Exam GENERAL APPEARANCE: Lying on bed; _ SKIN: Warm EXTREMITIES: No cyanosis/clubbing. No significant pedal edema HEENT: PERRL, EOMI. JVD not elevated NECK: Supple. Trachea is midline. CHEST: Symmetric. Nontender to palpation. LUNGS: Mildly diminished basal breath sounds/few crackles HEART: RRR, S1, S2 +. No murmurs, gallops, or rubs. ABDOMEN: Soft. No organomegaly. NEUROLOGIC: A&O, moving all four extremities. Weight Dosing Weight: 114.4 kg (05/08/24) Medications Medications (30) Active Scheduled: (15) albumin human 25% (50 mL) vial 25 gram(s) 100 mL, IV Piggyback (MED), BID apixaban 5 mg tablet 5 mg 1 tab(s), Oral, BID atorvastatin 40 mg tablet 40 mg 1 tab(s), Oral, qDay cefdinir 300 mg Capsule 300 mg 1 cap(s), Oral, BID emollients (Eucerin Cream) 30gm 1 artemio, Topical, BID gabapentin 300 mg Capsule 300 mg 1 cap(s), Oral, qDay insulin glargine 30 unit(s) 0.3 mL, Subcutaneous (INT), qHS insulin lispro 100 units/mL Soln (3 mL) Give 0-10 units/dose, Subcutaneous, TIDAC linezolid 600 mg tablet 600 mg 1 tab(s), Oral, BID metoprolol succinate 100 mg ER tablet 100 mg 1 tab(s), Oral, BID miconazole topical 2% Powder 1 artemio, Topical, BID minocycline 100 mg Capsule 100 mg 1 cap(s), Oral, q12h omeprazole [address] capsule 40 mg 1 cap(s), Oral, BID sodium hypochlorite topical 0.25% Soln 1 artemio, Topical, BID stomahesive in aquaphor 1oz 1 artemio, Topical, amhs Continuous: (0) PRN: (15) acetaminophen 325 mg Tablet 650 mg 2 tab(s), Oral, q4h albuterol - ipratropium 2.5 mg-0.5 mg/3 mL Inhal Elena UD 3 mL, Inhalation, q4hRT dextrose 50% Solution Disp syringe 50 mL 12.5 gram(s) 25 mL, IV Push, AsDirected magnesium sulfate 4 gram(s)/100mL PMX 4 g 100 mL, IV Piggyback, AsDirected magnesium sulfate 50% (500mg/mL) 6 g 12 mL, IV Piggyback, AsDirected magnesium sulfate PMX 2 g 50 mL, IV Piggyback, AsDirected melatonin 3 mg tablet 6 mg 2 tab(s), Oral, qHS morphine 2 mg/mL 1 mL syringe 2 mg 1 mL, IV Push, q6hr ondansetron 2 mg/ 1 mL 2 mL INJ 4 mg 2 mL, IV Push, q4h oxycodone 5 mg tablet (immediate release) 5 mg 1 tab(s), Oral, q6hr polyethylene glycol 3350 - UD packet 17 gram(s) 15 mL, Oral, qHS potassium chloride (PMX) 20 mEq/100 mL 20 mEq 100 mL, IV Piggyback, AsDirected potassium chloride 20 mEq ER tablet 20 mEq 1 tab(s), Oral, AsDirected potassium chloride 20 mEq ER tablet 40 mEq 2 tab(s), Oral, AsDirected potassium chloride 20 mEq ER tablet 40 mEq 2 tab(s), Oral, AsDirected Lab Results 05/12 07:29 Potassium Level: 5.2 H 05/12 04:25 WBC: 10.1 Hgb: 8.8 L Hct: 25.9 L Platelet: 117 L Neutrophil %: 66.1 Glucose Level: 197 H Sodium Level: 131 L Potassium Level: 5.2 H BUN: 55.0 H Creatinine Lvl (s): 2.90 H 05/11 03:15 WBC: 9.8 Hgb: 9.3 L Hct: 27.3 L Platelet: 123 L Neutrophil %: 63.6 Glucose Level: 167 H Sodium Level: 133 L Potassium Level: 4.8 BUN: 48.0 H Creatinine Lvl (s): 2.42 H EKG No qualifying data available. Assessment/Plan Atypical chest pain (nuclear stress test negative) Nonischemic cardiomyopathy, HFrEF 25-30% (per echo in April 2024) Paroxysmal atrial fibrillation (on Eliquis) Chronic bifascicular block (LPHB+RBBB), QRS 170 ms GENE on CKD IIIb (baseline creatinine 1.9 2.0) Claire's gangrene s/p debridements, on antibiotics Type 2 diabetes mellitus Essential hypertension Dyslipidemia Plan: Creatinine worsened to 2.9 this morning, will continue holding off on Bumex/Entresto. EF seems to be approximately 40-45% on echo this morning, IVC 1.8 cm, collapsing >50% with respiration. -- Will dose IV Albumin x 2 doses today given GENE Will continue Toprol-XL 100 mg p.o. BID for rate control of underlying A-fib. Will hold off on re-initiating SGLT2i due to recent Claire's gangrene. Digitally Signed by JC OROZCO MD on 05/12/2024 02:[address] [facility] [id number] Note* Exam Date Time Procedure Performing Provider Status 05/12/24 10:45 AM Echocardiogram, Adult - CV Auth (Verified) [facility] 06-21-2024 Note DATE OF PROCEDURE: 05/09/2024 Dr. Aurelia Burgess dictating for Dr. Lamar Pettit. LEXISCAN: Pharmacologic stress testing was performed using regadenoson with a dose of 0.4 mg being infused per protocol. The resting heart rate was 73 beats per minute, which increased to 79 beats per minute during the test. The resting blood pressure was 145/81, which decreased to 120/70 mmHg during the test. The patient developed nonspecific symptoms of shortness of breath and cough, which all resolved in recovery. The resting electrocardiogram demonstrated normal sinus rhythm with complete right bundle-branch block, left posterior fascicular block. There were also downsloping ST depressions most notable in the anterior and anterolateral leads. During the stress portion of the exam, therewere no significant changes in the downsloping ST depressions noted at baseline. IMPRESSION: ECG portion of the Lexiscan stress test is nondiagnostic due to ST depressions and T-wave inversions noted at baseline in the inferior, anterolateral and anterior leads. Results of nuclear images to be reported separately. Aurelia Burgess MD BB/NTS JOB#: [id number] DICTATION ID#: [id number] Digitally Signed by AURELIA BURGESS MD on 05/11/2024 06:23 PM Digitally Signed by LAMAR PETTIT [id number] Note Date of Service 05/09/24 Chief Complaint Diabetic management Subjective 49-year-old male with past medical history of obesity, tobacco abuse, uncontrolled type 2 diabetes with recent A1c of 14.9, hypertension, hyperlipidemia, neuropathy, chronic kidney disease, chronic diastolic dysfunction, foreigners gangrene. Patient presented from [place] [facility] to [facility] 05[facility] with complaints of chest pain. Patient was recently admitted 04/16/2024 through 05/06/2024 for acute respiratory failure and septic shock secondary to necrotizing foreigners gangrene requiring ICU level care mechanical ventilation. Patient required 3 extensive debridements of the scrotal and suprapubic region. Wound cultures were positive for group beta- hemolytic strep, Serratia marcescens, staph epi, lactobacillus gasseri, and enterococcus. Patient is to continue on oral antibiotics of Zyvox, minocycline and cefdinir until 05/18/2024. Patient was subsequently admitted to the cardiac services this hospital stay for chest pain. He is undergoing stress test and echocardiogram today. Hospitalist medicine was consulted for diabetic management. Patient seen today. He states he just returned from his stress test. He is planning to eat breakfast now. Patient denied further complaints of chest pain. No shortness of breath or abdominal pain. Nonausea or vomiting. He states he was not given a snack prior to bed yesterday after receiving his insulin. His blood glucose this morning was 66. Objective Vitals and Measurements T: 36.4 C (Oral) TMIN: 36 C (Rectal) TMAX: 36.6 C (Rectal) HR: 77 (Apical) RR: 18 BP: 154/72 SpO2: 97% Intake and Output 7AM Yesterday to 7AM Today Intake and Output (Last 24 hours) Intake Oral Intake 1000.00 Output Urinary Catheter Output: 1800.00 Total Summary Total Intake 1000.00 Total Output 1800.00 Fluid Balance -800.00 Physical Exam Physical Exam General: No acute distress. Alert and Appropriate Skin: No rash. Warm, Dry HEENT: Head is normocephalic and atraumatic. No lesions. Pupils equal in size. Extraocular movements within normal limits. Nose: No septal deviation. Mouth: Oropharynx mucosa is without lesion. Neck: Supple. No lymphadenopathy, thyromegaly noted. Lungs: Bilaterally clear/diminished breath sounds with no crepitation or wheeze. Unlabored on room air Cardiovascular: Heart is regular rhythm, S1S2, No extra-audible heart tones Abdomen: Abdomen is soft, nontender. Bowel sounds positive all four quadrants. Extremities: No clubbing, cyanosis or edema. Peripheral and distal pulses palpable. No calf tenderness. Adequate peripheral circulation. Neurological: The patient is awake, oriented to time, people and place. Following simple commands, moving all extremities. Weight Dosing Weight: 114.4 kg (05/08/24) Medications Medications (30) Active Scheduled: (16) aspirin 81 mg Chewable 81 mg 1 tab(s), Oral, qDayM atorvastatin 40 mg tablet 40 mg 1 tab(s), Oral, qDay cefdinir 300 mg Capsule 300 mg 1 cap(s), Oral, BID emollients (Eucerin Cream) 30gm 1 artemio, Topical, BID gabapentin 300 mg Capsule 300 mg 1 cap(s), Oral, qDay insulin glargine 30 unit(s) 0.3 mL, Subcutaneous (INT), qHS insulin lispro 100 units/mL Soln (3 mL) Give 0-10 units/dose, Subcutaneous, TIDAC linezolid 600 mg tablet 600 mg 1 tab(s), Oral, BID metoprolol succinate 100 mg ER tablet 100 mg 1 tab(s), Oral, BID miconazole topical 2% Powder 1 artemio, Topical, BID minocycline 100 mg Capsule 100 mg 1 cap(s), Oral, q12h omeprazole [address] capsule 40 mg 1 cap(s), Oral, BID potassium chloride 20 mEq ER tablet 20 mEq 1 tab(s), Oral, BIDM sacubitril-valsartan 24-26 mg oral tablet 1 tab(s), Oral, BID sodium hypochlorite topical 0.25% Soln 1 artemio, Topical, BID stomahesive in aquaphor 1oz 1 artemio, Topical, amhs Continuous: (1) heparin 25,000 unit(s) [8.741 unit(s)/kg/hr] + Dextrose 5% Premix Diluent 250 mL 250 mL, Intravenous, 10 mL/hr PRN: (13) acetaminophen 325 mg Tablet 650 mg 2 tab(s), Oral, q4h albuterol - ipratropium 2.5 mg-0.5 mg/3 mL Inhal Elena UD 3 mL, Inhalation, q4hRT dextrose 50% Solution Disp syringe 50 mL 12.5 gram(s) 25 mL, IV Push, AsDirected heparin 5,000 units/mL (1 mL) vial 4,000 unit(s) 0.8 mL, IV Push, q6h magnesium sulfate 4 gram(s)/100mL PMX 4 g 100 mL, IV Piggyback, AsDirected magnesium sulfate 50% (500mg/mL) 6 g 12 mL, IV Piggyback, AsDirected magnesium sulfate PMX 2 g 50 mL, IV Piggyback, AsDirected melatonin 3 mg tablet 6 mg 2 tab(s), Oral, qHS ondansetron 2 mg/ 1 mL 2 mL INJ 4 mg 2 mL, IV Push, q4h potassium chloride (PMX) 20 mEq/100 mL 20 mEq 100 mL, IV Piggyback, AsDirected potassium chloride 20 mEq ER tablet 20 mEq 1 tab(s), Oral, AsDirected potassium chloride 20 mEq ER tablet 40 mEq 2 tab(s), Oral, AsDirected potassium chloride 20 mEq ER tablet 40 mEq 2 tab(s), Oral, AsDirected Lab Results 05/09 07:17 WBC: 8.2 Hgb: 9.7 L Hct: 29.4 L Platelet: 161 Neutrophil %: 70.8 Glucose Level: 66 L Sodium Level: 140 Potassium Level: 3.4 L BUN: 44.0 H Creatinine Lvl (s): 1.95 H 05/08 16:12 Protime: 17.6 H PT International Ratio: 1.5 05/08 06:27 WBC: 8.1 Hgb: 10.3 L Hct: 30.8 L Platelet: 198 Neutrophil %: 80.6 H Glucose Level: 181 H Sodium Level: 140 Potassium Level: 3.5 BUN: 52.0 H Creatinine Lvl (s): 2.08 H Imaging Results and Diagnostics XR Chest 2 Views Result Date: May 08, 2024 Verified By: LINA ARMANDO MD CLINICAL STATEMENT: IMPRESSION: Mild hazy airspace disease at the right lung base. EKG EKG - Completed -- 05/08/24 5:45:00 EDT Assessment/Plan 1. IDDM 2. Chest pain 3. New onset cardiomyopathy 4. Paroxysmal atrial fibrillation 5. 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 Electrolyte abnormalities 8. Other history of HTN, HLD, neuropathy, tobacco abuse, obesity Plan A1c completed this admission was 9.1, this could be inaccurate as patient did receive blood products 04/18/2024 and 04/21/2024. Blood sugars reviewed, a.m. sugar was 66. Patient is to continue 30 units of Lantus nightly, would recommend he receives a snack prior to bed. Will stop prandial NPH as this is not typical, continue with sliding scale insulin if needed. If patient were to experience hyperglycemia prior to meal, would recommend scheduled Humalog prandial insulin. Patient is to resume Jardiance and glimepiride at discharge. Continue with ADA diet. Diabetic education following Continue management per primary team regarding chest pain, status post stress and echocardiogram today. On aspirin, atorvastatin, Toprol XL, Entresto was started. Eliquis on hold, continues on heparin byweight. Nephrology following for GENE on CKD. Electrolytes were replaced today. ID following for recent foreigners gangrene, recommended to continue Zyvox, minocycline and cefdinir with tentative stop date of 05/18/2024. Heparin by weight for DVT prophylaxis Plan discussed with patient. Hospitalist will sign off, please call with questions. Case discussed with Dr. Conti Digitally Signed by MAGDALENE ROMO on 05/09/2024 10:[address] [facility] [address] [facility] [id number] Note ORIGINAL NM MYOCARDIAL SPECT STRESS/REST CLINICAL STATEMENT: chest pain TECHNIQUE: Lexiscan dose:0.4 mg Radiopharmaceutical (rest): Tc-99m Sestamibi Dose:8.7 mCi Radiopharmaceutical (stress): Tc-99m Sestamibi Dose:26.7 mCi SPECT acquisition and processing Reconstruction and reorientation of SPECT images into short axis, vertical and horizontal long axis planes Quantitative LVEF assessment COMPARISON:None REPORT:Low-dose CT scan images demonstrate bilateral pleural effusions small amount of aortic calcification and coronary artery calcification. Perfusion SPECT images demonstrate decreased radiotraceruptake in the inferior myocardium in both rest and stress images which corrects with attenuation correction suggesting diaphragmatic attenuation artifact. Otherwise homogenous radiotracer uptake in all myocardial segments. Gated images demonstrate diffuse hypokinesis with calculated ejection fraction 45%. End-diastolic volume of 115 mL, tid ratio 0.95. IMPRESSION: No clear evidence of stress-induced ischemia or myocardial infarction. Global hypokinesis with a calculated ejection fraction of 45% and borderline increased end-diastolic volume of 115 mL. No prior studies available for comparison. Interpreted By: Lamar Pettit Preliminary Report By: Aurelia Burgess Electronically Signed By: Lamar Pettit Dictated Date: 05/09/2024 11:02:13 AM Prelim Date: 05/09/2024 11:09:27 AM Sign Date: 05/09/2024 3:51:58 PM Ordering Provider:[facility]06-21-2024 Note Date of Service 05/08/2024 Reason for Consultation Diabetic management Referring Physician Dr. Johnson History of Present Illness 49-year-old male with a past medical history significant for obesity, tobacco use, uncontrolled type 2 diabetes, hypertension, hyperlipidemia, neuropathy, chronic kidney disease, diastolic dysfunction [echo 04/22/2024 EF 25-30%], Claire's gangrene presented to [place] emergency department on 05/07/2024 with complaints of chest pain and was subsequently transferred to [facility] CCU. Patient wasrecently admitted from 04/16/2024-05/06/2024 for septic shock and acute respiratory failure secondaryto necrotizing Claire's gangrene requiring ICU level of care and mechanical ventilation. Patient required 3 extensive debridements of the scrotal and suprapubic region- 2 completed by urology and ge neral surgery and 1 completed by plastics. Wound cultures were positive for group beta-hemolytic strep, Serratia marcescens, staph epi, lactobacillus gasseri, and enterococcus. He is to follow-up with Dr. Parnell and ID in 2-3 weeks. Patient did require SNF placement at discharge and was sent to [facility] for less than 24 hours before returning to the emergency department. Hospitalist services arebeing consulted during this admission to assist with diabetic management. Lab work was personally reviewed from 05/08/2024. On examination, patient reports experiencing chestdiscomfort and chronic neuropathy in his lower extremities. He denies nausea, vomiting, constipation, diarrhea, shortness of breath, palpitations, lightheadedness, or dizziness. Review of Systems I reviewed constitutional, HEENT, cardiovascular, respiratory, GI, , skin, musculoskeletal, neurologic, hematologic, and psychiatric. All systems reviewed and are negative except as noted above in the HPI. Physical Exam Vitals and Measurements T: 36.4 C (Oral) TMIN: 34.9 C (Rectal) TMAX: 36.6 C (Rectal) HR: 81 (Apical) RR: 17 BP: 167/85 SpO2: 97% HT: 187 cm WT: 114.4 kg BMI: 32.71 Weight Dosing Weight: 114.4 kg (05/08/24) Physical Exam General: No acute distress. Alert and Appropriate Skin: Scrotal/suprapubic procedure site is intact with sutures. Area is erythematous/excoriated. HEENT: Head is normocephalic and atraumatic. No lesions. Pupils equal in size. Extraocular movements within normal limits. Nose: No septal deviation. Mouth: Oropharynx mucosa is pink and moist. Lungs: Bilaterally clear breath sounds with no crepitation or wheeze. Unlabored Cardiovascular: Heart is regular rhythm, S1S2, No extra-audible heart tones Abdomen: Abdomen is soft, nontender. Rounded. Bowel sounds positive all four quadrants. Extremities: No clubbing, cyanosis or edema. Peripheral pulses palpable. No calf tenderness. Decreased sensation to bilateral lower extremities. No sensation in bilateral feet. Neurological: The patient is awake, oriented to time, people and place. Following simple commands, moving all extremities. Lab Results 05/08 16:12 Protime: 17.6 H PT International Ratio: 1.5 05/08 06:27 WBC: 8.1 Hgb: 10.3 L Hct: 30.8 L Platelet: 198 Neutrophil %: 80.6 H Glucose Level: 181 H Sodium Level: 140 Potassium Level: 3.5 BUN: 52.0 H Creatinine Lvl (s): 2.08 H Imaging Results and Diagnostics XR Chest 2 Views Result Date: May 08, 2024 Verified By: LINA ARMANDO MD CLINICAL STATEMENT: IMPRESSION: Mild hazy airspace disease at the right lung base. Assessment/Plan 1. Uncontrolled type 2 diabetes mellitus with hyperglycemia, with long-term current use of insulin 2. Fourniers gangrene 3. CKD (chronic kidney disease) 4. Atrial fibrillation 5. Cardiomyopathy 6. Hyperlipidemia 7. Obesity Orders: insulin glargine(Lantus), 30 unit(s)= 0.3 mL, Subcutaneous (INT), qHS DM II- last Hgb A1c 2024 was 14.9%. Patient states he checks his blood sugars at home and he typically runs in the 200s. [id number] glucose trends this admission: [phone]. Patient also complains of severe peripheral neuropathy and is unable to detect sensation in bilateral feet; se nsation in bilateral legs decreased. Unfortunately, it appears patient is nonadherent to diabetic regimen. Patients current home diabetic regimen consists of Jardiance, Glimepiride, Lantus, and NPH insulin. While inpatient, he has been receiving 20 units of Lantus qHS (which differs from home dose of Lantus 30 units qHS) and 5 units NPH TIDAC. Jardiance and Glimepiride are on hold. Will increase basal insulin to 30 units qHS and continue to monitor glucose levels. Continue 5 units NPH TIDAC-maytitrate up if glucose levels are uncontrolled. ADA diet. ACHS. Diabetic education consulted. Claire's gangrene- patient underwent 3 extensive debridement operations during last hospital stay. Procedure site was assessed and is intact with sutures. Area appears erythematous and excoriated. Patient is to follow-up with plastics and ID in 2-3 weeks. Continue local wound care. ID following. CKD- BUN 52, creatinine 2.08. Nephrology following. Atrial fibrillation/cardiomyopathy- management per cardiology services. Started on Entresto. On Heparin by weight for ischemic evaluation and possible cardiac catheterization. Scheduled to undergo stress test and echo. HLD- stable. Continue statin. Obesity- complicating all areas of care. DVT and pain prophylaxis per primary team Labs and diagnostics as noted in HPI Thank you for requesting our participation in the care of your patient. We will continue to follow during hospitalization. 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 Medications Inpatient ASA, 81 mg= 1 tab(s), Oral, qDayM atorvastatin, 40 mg= 1 tab(s), Oral, qDay cefdinir, 300 mg= 1 cap(s), Oral, BID Dakins Half Strength 0.25% topical solution, 1 artemio, Topical, BID Dextrose 50% IV Push, 12.5 gram(s)= 25 mL, IV Push, AsDirected, PRN DuoNeb, 3 mL, Inhalation, q4hRT, PRN emollients (Eucerin Cream) Cream, 1 artemio, Topical, BID Entresto 24 mg-26 mg oral tablet, 1 tab(s), Oral, BID ET Mix, 1 artemio, Topical, amhs gabapentin, 300 mg= 1 cap(s), Oral, qDay Heparin for IV 25,000 unit(s) [8.741 unit(s)/kg/hr] + Dextrose 5% Premix Diluent 250 mL Heparin HBW CARDIAC Bolus 5000 units/mL, 4000 unit(s)= 0.8 mL, 60 unit(s)/kg, IV Push, q6h, PRN insulin isophane (NPH), 5 unit(s)= 0.05 mL, Subcutaneous, TIDAC Lantus, 30 unit(s)= 0.3 mL, Subcutaneous (INT), qHS magnesium sulfate for IV bolus, 2 gram(s)= 50 mL, IV Piggyback, AsDirected, PRN magnesium sulfate for IV bolus, 4 gram(s)= 100 mL, IV Piggyback, AsDirected, PRN magnesium sulfate for IV bolus melatonin, 6 mg= 2 tab(s), Oral, qHS, PRN miconazole 2% topical powder, 1 artemio, Topical, BID minocycline, 100 mg= 1 cap(s), Oral, q12h omeprazole, 40 mg= 1 cap(s), Oral, BID potassium chloride, 20 mEq= 1 tab(s), Oral, AsDirected, PRN potassium chloride, 40 mEq= 2 tab(s), Oral, AsDirected, PRN potassium chloride, 40 mEq= 2 tab(s), Oral, AsDirected, PRN potassium chloride bolus, 20 mEq= 100 mL, IV Piggyback, AsDirected, PRN Toprol-XL, 100 mg= 1 tab(s), Oral, BID Tylenol, 650 mg= 2 tab(s), Oral, q4h, PRN Zofran, 4 mg= 2 mL, IV Push, q4h, PRN Zyvox, 600 mg= 1 tab(s), Oral, BID Home amLODIPine 10 mg oral tablet, 10 mg= 1 tab(s), Oral, qDay bacitracin topical ointment, 1 artemio, Topical, BID Bumex, 1 mg= 1 tab(s), Oral, BID cefdinir 300 mg oral capsule, 300 mg= 1 cap(s), Oral, BID Dakins Half Strength 0.25% topical solution, 1 artemio, Topical, BID Eliquis 5 mg oral tablet, 5 mg= 1 tab(s), Oral, BID emollients, topical, 1 artemio, Topical, BID gabapentin 100 mg oral capsule, 300 mg= 3 cap(s), Oral, qDay glimepiride 4 mg oral tablet, 8 mg= 2 tab(s), Oral, with breakfast insulin isophane (NPH), 8 unit(s), Subcutaneous, TIDAC Jardiance 10 mg oral tablet, 10 mg= 1 tab(s), Oral, qAM Lantus Solostar Pen 100 units/mL 3 mL Pen, 30 unit(s), Subcutaneous, qHS lidocaine 4% patch, Transdermal, q24h losartan 25 mg oral tablet, 25 mg= 1 tab(s), Oral, qDay minocycline 100 mg oral capsule, 100 mg= 1 cap(s), Oral, q12h omeprazole 40 mg oral delayed release capsule, 40 mg= 1 cap(s), Oral, BID rosuvastatin 10 mg oral tablet, 10 mg= 1 tab(s), qDay Toprol-XL 100 mg oral tablet, extended release, 100 mg= 1 tab(s), Oral, BID Tylenol 8 Hour 650 mg oral tablet, extended release, 1300 mg= 2 tab(s), Oral, q8h, PRN Zyvox 600 mg oral tablet, 600 mg= 1 tab(s), Oral, BID Allergies ampicillin Unknown penicillin Unknown Social History Smoking Status - 08/17/2018 Current every day smoker Alcohol - No Risk, 09/19/2020 Use: Current. Frequency: 1-2 times per year., 07/07/2023 Home/Environment Living situation: Home/Independent. Safe place to go: Yes. Financial concerns: No. Domestic Concerns: None., 03/08/2024 Nutrition/Health Type of diet: Regular. Appetite Good. Eating Difficulties None., 03/08/2024 Substance Abuse - Denies Substance Abuse, 08/17/2018 Use: Never., 04/30/2019 Tobacco - No Risk, 09/19/2020 Tobacco Use: 10 or more cigarettes (1/2 pack or more)/day in last 30 days. Type: Cigarettes., 04/30/2019 Digitally Signed by MANUEL GALO on 05/08/2024 10:[address] [facility] [id number] History and physical note Date of Service 05/08/2024 History of Present Illness Barrel Turner : Dr. 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 On the way to the long-term on the discharge day, patient started to have chest discomfort, located in the mid chest, sometimes pressure-like and sometimes burning or aching in character, 5/10 severity, lasted for a few minutes up to 30 minutes and subsided spontaneously. Patient had recurrent ep isode of similar chest pain over the next 24 hours and therefore decided to go to [facility]. Patient was then transferred to the [facility]. At the time of examination, patient is free from chest pain. He denied nausea, palpitations, lightheadedness, dizziness, presyncope and syncope associated with chest pain. Patient is an active smokerabout half to 1 pack/day. He denies alcohol and drug use. TTE 04/22/2024 EF 25 to 30%, diastolic dysfunction RAP 15 Review of Systems Constitutional: denies Fevers and chills , no loss of appetite, denies fatigue or weight change Eyes: Denies double vision/blurring of vision/flashes or floaters Ears, Nose, Mouth & Throat: Denies any tinnitus/hearing loss/sinus congestion/nasal discharge/sore throat Gastrointestinal: Denies any abdominal pain/nausea/vomiting/diarrhea/hematochezia/hematemesis/melena Genitourinary: Denies any dysuria/hematuria Musculoskeletal: denies joint pain or joint swelling or deformities Skin: No ulcers or rash Neurological: denies Weakness or numbness of extremities/facial droop/loss of balance Endocrine: Denies any heat or cold intolerance/polyuria/polydipsia/polyphagia Hematologic/Lymphatic: denies lymphadenopathy Allergic/Immunologic: Denies any seasonal allergy/sneezing/tearing from the eyes Physical Exam Vitals and Measurements T: 34.9 C (Rectal) HR: 86 (Monitored) BP: 156/79 SpO2: 98% HT: 187 cm WT: 114.4 kg BMI: 32.71 Weight Dosing Weight: 114.4 kg (05/08/24) General Appearance: Patient comfortably lying on bed, not in acute distress Head: Normocephalic, atraumatic EENT: PERRLA, Neck: Supple, no JVD, no mass Cardiac: s1s2,RRR, no murmurs or rubs or gallops Lungs: Clear to auscultation bilaterally, no wheeze or rhonchi or crackles Abdomen: Soft , Nontender, no organomegaly, bowel sounds heard Musculoskeletal: Full ROM , no gross deformities Extremities: No rash or ulcers or pedal edema Neurological: Alert, oriented x 3, grossly no focal neurological deficits Skin: No rash or ulcers Lab Results 05/08 06:27 WBC: 8.1 Hgb: 10.3 L Hct: 30.8 L Platelet: 198 Neutrophil %: 80.6 H Assessment/Plan Likely cardiac chest pain Paroxysmal atrial fibrillation New onset cardiomyopathy (EF 25-30%) GENE /GENE on CKD (baseline Cr 2.6-2.8) Uncontrolled diabetes mellitus Hypertension Hyperlipidemia 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 Troponin has been negative x 4. Based on patient's risk factors, HEART score is 5. Serial troponin and EKG. Will start aspirin and atorvastatin. Will switch Eliquis to heparin by weight for now. With history of recent diagnosis of cardiomyopathy and chest pain, will ideally needleft heart cathfor ischemic evaluation. But patient still has infection (Claire's gangrene) - We will get the stress test. Patient is euvolemic on physical exam With history of recent phoria gangrene and GENE, will hold off diuretics and Jardiance. - Will start him on low dose Entresto. Patient is GENE/GENE on CKD. Creatinine was 2.8 and overall. Repeat BMP this morning. Will consult nephrology. Continue home medications of antibiotics for recent Claire's gangrene. Will consult infectious disease. 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 Medications Home Medications (20) Active amLODIPine 10 mg oral tablet 10 mg = 1 tab(s), Oral, qDay bacitracin topical ointment 1 artemio, Topical, BID Bumex 1 mg = 1 tab(s), Oral, BID cefdinir 300 mg oral capsule 300 mg = 1 cap(s), Oral, BID Dakins Half Strength 0.25% topical solution 1 artemio, Topical, BID Eliquis 5 mg oral tablet 5 mg = 1 tab(s), Oral, BID emollients, topical 1 artemio, Topical, BID gabapentin 100 mg oral capsule 300 mg = 3 cap(s), Oral, qDay glimepiride 4 mg oral tablet 8 mg = 2 tab(s), Oral, with breakfast insulin isophane (NPH) 8 unit(s), Subcutaneous, TIDAC Jardiance 10 mg oral tablet 10 mg = 1 tab(s), Oral, qAM Lantus Solostar Pen 100 units/mL 3 mL Pen 30 unit(s), Subcutaneous, qHS lidocaine 4% patch , Transdermal, q24h losartan 25 mg oral tablet 25 mg = 1 tab(s), Oral, qDay minocycline 100 mg oral capsule 100 mg = 1 cap(s), Oral, q12h omeprazole 40 mg oral delayed release capsule 40 mg = 1 cap(s), Oral, BID rosuvastatin 10 mg oral tablet 10 mg = 1 tab(s), qDay Toprol-XL 100 mg oral tablet, extended release 100 mg = 1 tab(s), Oral, BID Tylenol 8 Hour 650 mg oral tablet, extended release 1,300 mg = 2 tab(s), PRN, Oral, q8h Zyvox 600 mg oral tablet 600 mg = 1 tab(s), Oral, BID Allergies ampicillin Unknown penicillin Unknown Social History Smoking Status - 08/17/2018 Current every day smoker Alcohol - No Risk, 09/19/2020 Use: Current. Frequency: 1-2 times per year., 07/07/2023 Home/Environment Living situation: Home/Independent. Safe place to go: Yes. Financial concerns: No. Domestic Concerns: None., 03/08/2024 Nutrition/Health Type of diet: Regular. Appetite Good. Eating Difficulties None., 03/08/2024 Substance Abuse - Denies Substance Abuse, 08/17/2018 Use: Never., 04/30/2019 Tobacco - No Risk, 09/19/2020 Tobacco Use: 10 or more cigarettes (1/2 pack or more)/day in last 30 days. Type: Cigarettes., 04/30/2019 Family History Patient was adopted Alcohol abuse: Father. Diabetes: Father. Health Status Family Member(s) Immunizations tetanus/diphth/pertuss (Tdap) adult/adol: 0.5 mL (08/17/18) Code Status Code Status - Ordered -- 05/08/24 5:49:00 EDT, Full Code, Constant Order Digitally Signed by JUMANA WALKER MD on 05/08/2024 08:[address] [facility] [id number] Note Date of Service 05/08/2024 Reason for Consultation Diabetic management Referring Physician Dr. Johnson History of Present Illness 49-year-old male with a past medical history significant for obesity, tobacco use, uncontrolled type 2 diabetes, hypertension, hyperlipidemia, neuropathy, chronic kidney disease, diastolic dysfunction [echo 04/22/2024 EF 25-30%], Claire's gangrene presented to [place] emergency department on 05/07/2024 with complaints of chest pain and was subsequently transferred to [facility] CCU. Patient wasrecently admitted from 04/16/2024-05/06/2024 for septic shock and acute respiratory failure secondaryto necrotizing Claire's gangrene requiring ICU level of care and mechanical ventilation. Patient required 3 extensive debridements of the scrotal and suprapubic region- 2 [facility] and 1 completed by plastics. Wound cultures were positive for group beta-hemolytic strep, Serratia marcescens, staph epi, lactobacillus gasseri, and enterococcus. He is to follow-up with Dr. Parnell and ID in 2-3 weeks. Patient did require SNF placement at discharge and was sent to [facility] for less than 24 hours before returning to the emergency department. Hospitalist services arebeing consulted during this admission to assist with diabetic management. Lab work was personally reviewed from 05/08/2024. On examination, patient reports experiencing chestdiscomfort and chronic neuropathy in his lower extremities. He denies nausea, vomiting, constipation, diarrhea, shortness of breath, palpitations, lightheadedness, or dizziness. Review of Systems I reviewed constitutional, HEENT, cardiovascular, respiratory, GI, , skin, musculoskeletal, neurologic, hematologic, and psychiatric. All systems reviewed and are negative except as noted above in the HPI. Physical Exam Vitals and Measurements T: 36.4 C (Oral) TMIN: 34.9 C (Rectal) TMAX: 36.6 C (Rectal) HR: 81 (Apical) RR: 17 BP: 167/85 SpO2: 97% HT: 187 cm WT: 114.4 kg BMI: 32.71 Weight Dosing Weight: 114.4 kg (05/08/24) Physical Exam General: No acute distress. Alert and Appropriate Skin: Scrotal/suprapubic procedure site is intact with sutures. Area is erythematous/excoriated. HEENT: Head is normocephalic and atraumatic. No lesions. Pupils equal in size. Extraocular movements within normal limits. Nose: No septal deviation. Mouth: Oropharynx mucosa is pink and moist. Lungs: Bilaterally clear breath sounds with no crepitation or wheeze. Unlabored Cardiovascular: Heart is regular rhythm, S1S2, No extra-audible heart tones Abdomen: Abdomen is soft, nontender. Rounded. Bowel sounds positive all four quadrants. Extremities: No clubbing, cyanosis or edema. Peripheral pulses palpable. No calf tenderness. Decreased sensation to bilateral lower extremities. No sensation in bilateral feet. Neurological: The patient is awake, oriented to time, people and place. Following simple commands, moving all extremities. Lab Results 05/08 16:12 Protime: 17.6 H PT International Ratio: 1.5 05/08 06:27 WBC: 8.1 Hgb: 10.3 L Hct: 30.8 L Platelet: 198 Neutrophil %: 80.6 H Glucose Level: 181 H Sodium Level: 140 Potassium Level: 3.5 BUN: 52.0 H Creatinine Lvl (s): 2.08 H Imaging Results and Diagnostics XR Chest 2 Views Result Date: May 08, 2024 Verified By: LINA ARMANDO MD CLINICAL STATEMENT: IMPRESSION: Mild hazy airspace disease at the right lung base. Assessment/Plan 1. Uncontrolled type 2 diabetes mellitus with hyperglycemia, with long-term current use of insulin 2. Fourniers gangrene 3. CKD (chronic kidney disease) 4. Atrial fibrillation 5. Cardiomyopathy 6. Hyperlipidemia 7. Obesity Orders: insulin glargine(Lantus), 30 unit(s)= 0.3 mL, Subcutaneous (INT), qHS DM II- last Hgb A1c 2024 was 14.9%. Patient states he checks his blood sugars at home and he typically runs in the 200s. [id number] glucose trends this admission: [phone]. Patient also complains of severe peripheral neuropathy and is unable to detect sensation in bilateral feet; se nsation in bilateral legs decreased. Unfortunately, it appears patient is nonadherent to diabetic regimen. Patients current home diabetic regimen consists of Jardiance, Glimepiride, Lantus, and NPH insulin. While inpatient, he has been receiving 20 units of Lantus qHS (which differs from home dose of Lantus 30 units qHS) and 5 units NPH TIDAC. Jardiance and Glimepiride are on hold. Will increase basal insulin to 30 units qHS and continue to monitor glucose levels. Continue 5 units NPH TIDAC-maytitrate up if glucose levels are uncontrolled. ADA diet. ACHS. Diabetic education consulted. Claire's gangrene- patient underwent 3 extensive debridement operations during last hospital stay. Procedure site was assessed and is intact with sutures. Area appears erythematous and excoriated. Patient is to follow-up with plastics and ID in 2-3 weeks. Continue local wound care. ID following. CKD- BUN 52, creatinine 2.08. Nephrology following. Atrial fibrillation/cardiomyopathy- management per cardiology services. Started on Entresto. On Heparin by weight for ischemic evaluation and possible cardiac catheterization. Scheduled to undergo stress test and echo. HLD- stable. Continue statin. Obesity- complicating all areas of care. DVT and pain prophylaxis per primary team Labs and diagnostics as noted in HPI Thank you for requesting our participation in the care of your patient. We will continue to follow during hospitalization. 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 Medications Inpatient ASA, 81 mg= 1 tab(s), Oral, qDayM atorvastatin, 40 mg= 1 tab(s), Oral, qDay cefdinir, 300 mg= 1 cap(s), Oral, BID Dakins Half Strength 0.25% topical solution, 1 artemio, Topical, BID Dextrose 50% IV Push, 12.5 gram(s)= 25 mL, IV Push, AsDirected, PRN DuoNeb, 3 mL, Inhalation, q4hRT, PRN emollients (Eucerin Cream) Cream, 1 artemio, Topical, BID Entresto 24 mg-26 mg oral tablet, 1 tab(s), Oral, BID ET Mix, 1 artemio, Topical, amhs gabapentin, 300 mg= 1 cap(s), Oral, qDay Heparin for IV 25,000 unit(s) [8.741 unit(s)/kg/hr] + Dextrose 5% Premix Diluent 250 mL Heparin HBW CARDIAC Bolus 5000 units/mL, 4000 unit(s)= 0.8 mL, 60 unit(s)/kg, IV Push, q6h, PRN insulin isophane (NPH), 5 unit(s)= 0.05 mL, Subcutaneous, TIDAC Lantus, 30 unit(s)= 0.3 mL, Subcutaneous (INT), qHS magnesium sulfate for IV bolus, 2 gram(s)= 50 mL, IV Piggyback, AsDirected, PRN magnesium sulfate for IV bolus, 4 gram(s)= 100 mL, IV Piggyback, AsDirected, PRN magnesium sulfate for IV bolus melatonin, 6 mg= 2 tab(s), Oral, qHS, PRN miconazole 2% topical powder, 1 artemio, Topical, BID minocycline, 100 mg= 1 cap(s), Oral, q12h omeprazole, 40 mg= 1 cap(s), Oral, BID potassium chloride, 20 mEq= 1 tab(s), Oral, AsDirected, PRN potassium chloride, 40 mEq= 2 tab(s), Oral, AsDirected, PRN potassium chloride, 40 mEq= 2 tab(s), Oral, AsDirected, PRN potassium chloride bolus, 20 mEq= 100 mL, IV Piggyback, AsDirected, PRN Toprol-XL, 100 mg= 1 tab(s), Oral, BID Tylenol, 650 mg= 2 tab(s), Oral, q4h, PRN Zofran, 4 mg= 2 mL, IV Push, q4h, PRN Zyvox, 600 mg= 1 tab(s), Oral, BID Home amLODIPine 10 mg oral tablet, 10 mg= 1 tab(s), Oral, qDay bacitracin topical ointment, 1 artemio, Topical, BID Bumex, 1 mg= 1 tab(s), Oral, BID cefdinir 300 mg oral capsule, 300 mg= 1 cap(s), Oral, BID Dakins Half Strength 0.25% topical solution, 1 artemio, Topical, BID Eliquis 5 mg oral tablet, 5 mg= 1 tab(s), Oral, BID emollients, topical, 1 artemio, Topical, BID gabapentin 100 mg oral capsule, 300 mg= 3 cap(s), Oral, qDay glimepiride 4 mg oral tablet, 8 mg= 2 tab(s), Oral, with breakfast insulin isophane (NPH), 8 unit(s), Subcutaneous, TIDAC Jardiance 10 mg oral tablet, 10 mg= 1 tab(s), Oral, qAM Lantus Solostar Pen 100 units/mL 3 mL Pen, 30 unit(s), Subcutaneous, qHS lidocaine 4% patch, Transdermal, q24h losartan 25 mg oral tablet, 25 mg= 1 tab(s), Oral, qDay minocycline 100 mg oral capsule, 100 mg= 1 cap(s), Oral, q12h omeprazole 40 mg oral delayed release capsule, 40 mg= 1 cap(s), Oral, BID rosuvastatin 10 mg oral tablet, 10 mg= 1 tab(s), qDay Toprol-XL 100 mg oral tablet, extended release, 100 mg= 1 tab(s), Oral, BID Tylenol 8 Hour 650 mg oral tablet, extended release, 1300 mg= 2 tab(s), Oral, q8h, PRN Zyvox 600 mg oral tablet, 600 mg= 1 tab(s), Oral, BID Allergies ampicillin Unknown penicillin Unknown Social History Smoking Status - 08/17/2018 Current every day smoker Alcohol - No Risk, 09/19/2020 Use: Current. Frequency: 1-2 times per year., 07/07/2023 Home/Environment Living situation: Home/Independent. Safe place to go: Yes. Financial concerns: No. Domestic Concerns: None., 03/08/2024 Nutrition/Health Type of diet: Regular. Appetite Good. Eating Difficulties None., 03/08/2024 Substance Abuse - Denies Substance Abuse, 08/17/2018 Use: Never., 04/30/2019 Tobacco - No Risk, 09/19/2020 Tobacco Use: 10 or more cigarettes (1/2 pack or more)/day in last 30 days. Type: Cigarettes., 04/30/2019 Digitally Signed by MANUEL GALO on 05/08/2024 10:[address] [facility] [id number] Infectious disease Consult note Date of Service 05/08/2024 Reason for Consultation Claire's gangrene Referring Physician Dr. Johnson History of Present Illness Patient is a 48-year-old male with history of type 2 diabetes mellitus obesity hypertension hyperlipidemia neuropathy chronic kidney disease and recent history of claire's gangrene he is well-knownto our service from recent hospitalization and in fact just discharged from the hospital on 05/06/2024. Patient has been discharged on oral antibiotics linezolid minocycline and cefdinir up until 05/18/2024. Patient presents to [place] emergency room on 05/07/2024 given complaints of chest pain currently patient is admitted under cardiology service patient noted to have new onset cardiomyopathy with EF of 25 to 30% also has paroxysmal atrial fibrillation. Cardiology managing his care. ID consulted given history of for Claire's gangrene. Review of Systems 12 point review of systems is reviewed and is negative except for noted above. Physical Exam Vitals and Measurements T: 36 C (Rectal) TMIN: 34.9 C (Rectal) TMAX: 36 C (Rectal) HR: 80 (Monitored) RR: 18 BP: 178/91 SpO2: 98% HT: 187 cm WT: 114.4 kg BMI: 32.71 Weight Dosing Weight: 114.4 kg (05/08/24) General Appearance: Patient is laying in the bed not in any apparent distress HEENT: Atraumatic normocephalic, EOMI Neck: Neck supple oral mucosa moist Cardiac: first and second heart sounds audible Lungs: Clear to auscultation bilaterally anteriorly Abdomen: Soft nontender nondistended bowel sounds positive Genitourinary exam scrotal incision well-approximated without any signs of erythema. Hernandez in place Extremities: No lower extremity edema Neurological: Grossly non focal Skin: No rash Lab Results 05/08 16:12 Protime: 17.6 H PT International Ratio: 1.5 05/08 06:27 WBC: 8.1 Hgb: 10.3 L Hct: 30.8 L Platelet: 198 Neutrophil %: 80.6 H Glucose Level: 181 H Sodium Level: 140 Potassium Level: 3.5 BUN: 52.0 H Creatinine Lvl (s): 2.08 H Imaging Results and Diagnostics XR Chest 2 Views Result Date: May 08, 2024 Verified By: LINA ARMANDO MD CLINICAL STATEMENT: IMPRESSION: Mild hazy airspace disease at the right lung base. Assessment/Plan Patient is a 48-year-old male with history of type 2 diabetes mellitus hypertension hyperlipidemia obesity chronic kidney disease, known to our service from recent hospitalization for claire's gangrene status post multiple debridements during past hospitalization, discharged on 05/06/2024 on oral a ntibiotics linezolid minocycline and cefdinir up until 05/18/2024. Now he returns to emergency room on 05/08/2024 with complaints of chest pain he is currently admitted under cardiology service noted to have new onset cardiomyopathy cardiac workup is underway ID consulted given concerns of Claire'sgangrene On evaluation patient noted to be laying in the bed comfortably. Genital exam is notable for scrotal area with well-approximated incision site without any evidence of erythema or tenderness. At this time recommend continuation of present antibiotics up until 05/18/2024 as originally planned. Please call ID service if there are any additional questions or concerns. 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 Medications Inpatient ASA, 81 mg= 1 tab(s), Oral, qDayM atorvastatin, 40 mg= 1 tab(s), Oral, qDay cefdinir, 300 mg= 1 cap(s), Oral, BID Dakins Half Strength 0.25% topical solution, 1 artemio, Topical, BID Dextrose 50% IV Push, 12.5 gram(s)= 25 mL, IV Push, AsDirected, PRN DuoNeb, 3 mL, Inhalation, q4hRT, PRN emollients (Eucerin Cream) Cream, 1 artemio, Topical, BID Entresto 24 mg-26 mg oral tablet, 1 tab(s), Oral, BID ET Mix, 1 artemio, Topical, amhs gabapentin, 300 mg= 1 cap(s), Oral, qDay Heparin for IV 25,000 unit(s) [8.741 unit(s)/kg/hr] + Dextrose 5% Premix Diluent 250 mL Heparin HBW CARDIAC Bolus 5000 units/mL, 4000 unit(s)= 0.8 mL, 60 unit(s)/kg, IV Push, q6h, PRN insulin isophane (NPH), 5 unit(s)= 0.05 mL, Subcutaneous, TIDAC Lantus, 20 unit(s)= 0.2 mL, Subcutaneous (INT), qHS magnesium sulfate for IV bolus, 2 gram(s)= 50 mL, IV Piggyback, AsDirected, PRN magnesium sulfate for IV bolus, 4 gram(s)= 100 mL, IV Piggyback, AsDirected, PRN magnesium sulfate for IV bolus melatonin, 6 mg= 2 tab(s), Oral, qHS, PRN miconazole 2% topical powder, 1 artemio, Topical, BID minocycline, 100 mg= 1 cap(s), Oral, q12h omeprazole, 40 mg= 1 cap(s), Oral, BID potassium chloride, 20 mEq= 1 tab(s), Oral, AsDirected, PRN potassium chloride, 40 mEq= 2 tab(s), Oral, AsDirected, PRN potassium chloride, 40 mEq= 2 tab(s), Oral, AsDirected, PRN potassium chloride bolus, 20 mEq= 100 mL, IV Piggyback, AsDirected, PRN Toprol-XL, 100 mg= 1 tab(s), Oral, BID Tylenol, 650 mg= 2 tab(s), Oral, q4h, PRN Zofran, 4 mg= 2 mL, IV Push, q4h, PRN Zyvox, 600 mg= 1 tab(s), Oral, BID Home amLODIPine 10 mg oral tablet, 10 mg= 1 tab(s), Oral, qDay bacitracin topical ointment, 1 artemio, Topical, BID Bumex, 1 mg= 1 tab(s), Oral, BID cefdinir 300 mg oral capsule, 300 mg= 1 cap(s), Oral, BID Dakins Half Strength 0.25% topical solution, 1 artemio, Topical, BID Eliquis 5 mg oral tablet, 5 mg= 1 tab(s), Oral, BID emollients, topical, 1 artemio, Topical, BID gabapentin 100 mg oral capsule, 300 mg= 3 cap(s), Oral, qDay glimepiride 4 mg oral tablet, 8 mg= 2 tab(s), Oral, with breakfast insulin isophane (NPH), 8 unit(s), Subcutaneous, TIDAC Jardiance 10 mg oral tablet, 10 mg= 1 tab(s), Oral, qAM Lantus Solostar Pen 100 units/mL 3 mL Pen, 30 unit(s), Subcutaneous, qHS lidocaine 4% patch, Transdermal, q24h losartan 25 mg oral tablet, 25 mg= 1 tab(s), Oral, qDay minocycline 100 mg oral capsule, 100 mg= 1 cap(s), Oral, q12h omeprazole 40 mg oral delayed release capsule, 40 mg= 1 cap(s), Oral, BID rosuvastatin 10 mg oral tablet, 10 mg= 1 tab(s), qDay Toprol-XL 100 mg oral tablet, extended release, 100 mg= 1 tab(s), Oral, BID Tylenol 8 Hour 650 mg oral tablet, extended release, 1300 mg= 2 tab(s), Oral, q8h, PRN Zyvox 600 mg oral tablet, 600 mg= 1 tab(s), Oral, BID Allergies ampicillin Unknown penicillin Unknown Social History Smoking Status - 08/17/2018 Current every day smoker Alcohol - No Risk, 09/19/2020 Use: Current. Frequency: 1-2 times per year., 07/07/2023 Home/Environment Living situation: Home/Independent. Safe place to go: Yes. Financial concerns: No. Domestic Concerns: None., 03/08/2024 Nutrition/Health Type of diet: Regular. Appetite Good. Eating Difficulties None., 03/08/2024 Substance Abuse - Denies Substance Abuse, 08/17/2018 Use: Never., 04/30/2019 Tobacco - No Risk, 09/19/2020 Tobacco Use: 10 or more cigarettes (1/2 pack or more)/day in last 30 days. Type: Cigarettes., 04/30/2019 Family History Patient was adopted Alcohol abuse: Father. Diabetes: Father. Health Status Family Member(s) Immunizations tetanus/diphth/pertuss (Tdap) adult/adol: 0.5 mL (08/17/18) Digitally Signed by CIARA VIGIL MD on 05/08/2024 06:[address] [facility] [id number] Evaluation + Plan noteExtracted from: Title:History and Physical Author:JUMANA WALKER MD Date:05/08/24 Likely cardiac chest pain Paroxysmal atrial fibrillation New onset cardiomyopathy (EF 25-30%) GENE /GENE on CKD (baseline Cr 2.6-2.8) Uncontrolled diabetes mellitus Hypertension Hyperlipidemia 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 Troponin has been negative x 4. Based on patient's risk factors, HEART score is 5. Serial troponin and EKG. Will start aspirin and atorvastatin. Will switch Eliquis to heparin by weight for now. With history of recent diagnosis of cardiomyopathy and chest pain, will ideally needleft heart cath for ischemic evaluation. But patient still has infection (Claire's gangrene) - We will get the stress test. Patient is euvolemic on physical exam With history of recent phoria gangrene and GENE, will hold off diuretics and Jardiance. - Will start him on low dose Entresto. Patient is GENE/GENE on CKD. Creatinine was 2.8 and overall. Repeat BMP this morning. Will consult nephrology. Continue home medications of antibiotics for recent Claire's gangrene. Will consult infectious disease. Addendum by TORI JOHNSON MD on May 08, 2024 22:50:36 EDT I have seen & examined this patient myself, reviewed all data and agree with the fellow's findings and with the plan of care and management delineated in the fellow's documentation note Future Appointments Appointment Date:06/17/2024 10:15:00 AM Scheduled Provider: Location:[facility] Appointment Type:[facility] Hospital Follow Up [facility] 06-20-2024 Note Date of Service 05/08/24 Reason for Consultation Admission From: F Consult Skin Team re: Pressure Staging - Ordered -- 05/08/24 8:30:44 EDT Skin Team Findings Vitals and Measurements T: 34.9 C (Rectal) HR: 86 (Monitored) RR: 18 BP: 178/91 SpO2: 98% HT: 187 cm WT: 114.4 kg BMI: 32.71 Pressure Area Details ------Pressure Area------ Buttock Right - Pressure Area Cleansing: Cleaned with sterile saline Buttock Right - Pressure Area Description: Necrotic tissue, slough Buttock Right - Pressure Area Drainage: Small, Serous Buttock Right - Pressure Area Dressing Description: Open to air Buttock Right - Pressure Area Dressing Type: Foam Buttock Right - Pressure Area Surrounding Tissue: Erythema, Moist Buttock Right - Pressure Ulcer Present On Admission: Yes Buttock Right - Pressure Ulcer Stage: Unstageable ------Pressure Area Measurements------ Buttock Right - Pressure Area Depth: 0.2 cm Buttock Right - Pressure Area Length: 8.2 cm Buttock Right - Pressure Area Width: 8.6 cm ------Incision/Wound------ Groin Bilateral, Other: perineum - Incision, Wound Distribution: Diffuse, Localized Groin Bilateral, Other: perineum - Rash Appearance: Reddened Groin Bilateral, Other: perineum - Skin Abnormality Type: Fungal infection Scrotum - Incision, Wound Cleansing: Cleaned with normal saline Scrotum - Incision, Wound Dressing Assessment: Drainage present Scrotum - Incision, Wound Dressing/Activity: Dressing Applied Scrotum - Incision, Wound Dressing: Wet to moist Scrotum - Incision, Wound Surrounding Tissue: Erythema, Moist, Pain increase, Rash Scrotum - Skin Abnormality Color: Red, Yellow Scrotum - Skin Abnormality Type: Procedure site Scrotum - Wound Associated Pain: With dressing change, With activity, mobilization Scrotum - Wound Bed Tissue Type: Granulation, Necrotic tissue, slough, Subcutaneous 20%, Visible muscle 10% Scrotum - Wound Exudate Amount: Moderate Scrotum - Wound Exudate Odor: Moderate Scrotum - Wound Exudate Type: Seropurulent Scrotum - Wound Percent Granulated: 40 % Scrotum - Wound Percent Necrotic Tissue Slough: 30 % Scrotum - Wound sutures noted noon (mid abdomen fold) (loose) & 7 O'clock scrotum ------Incision/Wound Measurements------ This wound is s/p surgical debridement for Claire's gangrene involving lower abdominal wall, around penile shaft and between and around testicles. Scrotum - Incision, Wound Depth: 6.8 cm deepest at proximal ulcer Assessments and Recommendations ------Assessments------ Current Skin/Wound Interventions: Hospital bed Present For Wound Observation: Nurse ------Recommendations------ Recommended Skin/Wound Interventions: Low air loss mattress, Seat cushion, Turn and position system, Turn and reposition every 2 hours, Consult Dietitian, Proposed orders sent to physician, Other: dakins BID scrotum, medihoney & foam to butt Q day, miconazole then ET mix to groin/perineum/perianal, keep off coccyx, limit chair time Additional Skin Team Comments: Dr Parnell seen 2 days ago & recommend wound clinic follow up in 2-3 weeks, wound clinic after discharge Education Individuals Taught: Patient Learning Readiness: Willing to learn, low motivation level Barriers to Learning: Acuity of illness, Desire/Motivation Teaching Method: Demonstration, Explanation Problem List/Past Medical History Ongoing Diabetes GERD (gastroesophageal reflux disease) High cholesterol Digitally Signed by CELSO Oneill on 05/08/2024 10:[address] [facility] [id number] Nephrology Consult note Date of Service 05-08 Reason for Consultation gene History of Present Illness Patient was recently discharged after period of congestive heart failure management and appears to have had chest discomfort shortly after discharge being readmitted for the same. Noted to have renalinsufficiency that is persistent. He recently is being managed for foreign years gangrene. Admission blood pressures are elevated. Metabolic status is notable for borderline hypokalemia. He has profoundly poor albumin stores. He has a borderline elevated alkaline phosphatase levels but other liver enzymes are stable he is got moderate anemia without significant thrombocytopenia. Review of Systems 10 point review of systems was done. negative other than mentioned above. Physical Exam Vitals and Measurements T: 34.9 C (Rectal) HR: 86 (Monitored) RR: 18 BP: 178/91 SpO2: 98% HT: 187 cm WT: 114.4 kg BMI: 32.71 Weight Dosing Weight: 114.4 kg (05/08/24) General: Alert, awake and oriented x 3 HEENT: Icterus-; Pallor + Neck: No swelling. JVD normal. Chest: Chest equal in expansion, and clear to auscultation bilaterally. Heart: s1s2 heard. regular. No murmur/rub appreciated. Abdomen: Soft. Nondistended. Nontender. Bowel sounds heard. Neuro: asterexis-; sensation b/l intact. Skin: rash-; ecchymosis - Musculoskeletal: joint effusion -; cyanosis-; lower extremitity edema: +1 Genitourinary/rectal: FMS: - hernandez:- Breast: deferred Access: Lab Results 05/08 06:27 WBC: 8.1 Hgb: 10.3 L Hct: 30.8 L Platelet: 198 Neutrophil %: 80.6 H Glucose Level: 181 H Sodium Level: 140 Potassium Level: 3.5 BUN: 52.0 H Creatinine Lvl (s): 2.08 H Assessment/Plan 1. gene/ckd3b 2. chest pain 3. scrotal cellulitis 4. htn plan If volume removal is necessary, will use albumin and Lasix together. Dose medication GFR less than 30. If proceeding with a heart cath at this point I do not think he requires significant Mucomyst orIV fluids as his blood pressures are elevated and creatinine is slowly coming down. Thank you very much Makey This document was composed using voice recognition software, therefore, typographical errors may exist. 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 Medications Inpatient ASA, 81 mg= 1 tab(s), Oral, qDayM atorvastatin, 40 mg= 1 tab(s), Oral, qDay cefdinir, 300 mg= 1 cap(s), Oral, BID Dextrose 50% IV Push, 12.5 gram(s)= 25 mL, IV Push, AsDirected, PRN DuoNeb, 3 mL, Inhalation, q4hRT, PRN Entresto 24 mg-26 mg oral tablet, 1 tab(s), Oral, BID gabapentin, 300 mg= 1 cap(s), Oral, qDay Heparin for IV 25,000 unit(s) [8.741 unit(s)/kg/hr] + Dextrose 5% Premix Diluent 250 mL Heparin HBW CARDIAC Bolus 5000 units/mL, 4000 unit(s)= 0.8 mL, 60 unit(s)/kg, IV Push, q6h, PRN insulin isophane (NPH), 5 unit(s)= 0.05 mL, Subcutaneous, TIDAC Lantus, 20 unit(s)= 0.2 mL, Subcutaneous (INT), qHS magnesium sulfate for IV bolus, 2 gram(s)= 50 mL, IV Piggyback, AsDirected, PRN magnesium sulfate for IV bolus, 4 gram(s)= 100 mL, IV Piggyback, AsDirected, PRN magnesium sulfate for IV bolus melatonin, 6 mg= 2 tab(s), Oral, qHS, PRN minocycline, 100 mg= 1 cap(s), Oral, q12h omeprazole, 40 mg= 1 cap(s), Oral, BID potassium chloride, 20 mEq= 1 tab(s), Oral, AsDirected, PRN potassium chloride, 40 mEq= 2 tab(s), Oral, AsDirected, PRN potassium chloride, 40 mEq= 2 tab(s), Oral, AsDirected, PRN potassium chloride bolus, 20 mEq= 100 mL, IV Piggyback, AsDirected, PRN Toprol-XL, 100 mg= 1 tab(s), Oral, BID Tylenol, 650 mg= 2 tab(s), Oral, q4h, PRN Zofran, 4 mg= 2 mL, IV Push, q4h, PRN Zyvox, 600 mg= 1 tab(s), Oral, BID Home amLODIPine 10 mg oral tablet, 10 mg= 1 tab(s), Oral, qDay bacitracin topical ointment, 1 artemio, Topical, BID Bumex, 1 mg= 1 tab(s), Oral, BID cefdinir 300 mg oral capsule, 300 mg= 1 cap(s), Oral, BID Dakins Half Strength 0.25% topical solution, 1 artemio, Topical, BID Eliquis 5 mg oral tablet, 5 mg= 1 tab(s), Oral, BID emollients, topical, 1 artemio, Topical, BID gabapentin 100 mg oral capsule, 300 mg= 3 cap(s), Oral, qDay glimepiride 4 mg oral tablet, 8 mg= 2 tab(s), Oral, with breakfast insulin isophane (NPH), 8 unit(s), Subcutaneous, TIDAC Jardiance 10 mg oral tablet, 10 mg= 1 tab(s), Oral, qAM Lantus Solostar Pen 100 units/mL 3 mL Pen, 30 unit(s), Subcutaneous, qHS lidocaine 4% patch, Transdermal, q24h losartan 25 mg oral tablet, 25 mg= 1 tab(s), Oral, qDay minocycline 100 mg oral capsule, 100 mg= 1 cap(s), Oral, q12h omeprazole 40 mg oral delayed release capsule, 40 mg= 1 cap(s), Oral, BID rosuvastatin 10 mg oral tablet, 10 mg= 1 tab(s), qDay Toprol-XL 100 mg oral tablet, extended release, 100 mg= 1 tab(s), Oral, BID Tylenol 8 Hour 650 mg oral tablet, extended release, 1300 mg= 2 tab(s), Oral, q8h, PRN Zyvox 600 mg oral tablet, 600 mg= 1 tab(s), Oral, BID Allergies ampicillin Unknown penicillin Unknown Social History Smoking Status - 08/17/2018 Current every day smoker Alcohol - No Risk, 09/19/2020 Use: Current. Frequency: 1-2 times per year., 07/07/2023 Home/Environment Living situation: Home/Independent. Safe place to go: Yes. Financial concerns: No. Domestic Concerns: None., 03/08/2024 Nutrition/Health Type of diet: Regular. Appetite Good. Eating Difficulties None., 03/08/2024 Substance Abuse - Denies Substance Abuse, 08/17/2018 Use: Never., 04/30/2019 Tobacco - No Risk, 09/19/2020 Tobacco Use: 10 or more cigarettes (1/2 pack or more)/day in last 30 days. Type: Cigarettes., 04/30/2019 Family History Patient was adopted Alcohol abuse: Father. Diabetes: Father. Health Status Family Member(s) Immunizations tetanus/diphth/pertuss (Tdap) adult/adol: 0.5 mL (08/17/18) Digitally Signed by BARBY WEBSTER MD on 05/11/2024 07:[address] [id number] NoteSINUS RHYTHM RIGHT BUNDLE BRANCH BLOCK Electronic Signature: LAMAR PETTIT MD 05/09/2024 09:11:04[facility] 06-20-2024 History and physical note Date of Service 05/08/2024 History of Present Illness Barrel Turner : Dr. 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 On the way to the long-term on the discharge day, patient started to have chest discomfort, located in the mid chest, sometimes pressure-like and sometimes burning or aching in character, 5/10 severity, lasted for a few minutes up to 30 minutes and subsided spontaneously. Patient had recurrent ep isode of similar chest pain over the next 24 hours and therefore decided to go to [facility]. Patient was then transferred to the [facility]. At the time of examination, patient is free from chest pain. He denied nausea, palpitations, lightheadedness, dizziness, presyncope and syncope associated with chest pain. Patient is an active smokerabout half to 1 pack/day. He denies alcohol and drug use. TTE 04/22/2024 EF 25 to 30%, diastolic dysfunction RAP 15 Review of Systems Constitutional: denies Fevers and chills , no loss of appetite, denies fatigue or weight change Eyes: Denies double vision/blurring of vision/flashes or floaters Ears, Nose, Mouth & Throat: Denies any tinnitus/hearing loss/sinus congestion/nasal discharge/sore throat Gastrointestinal: Denies any abdominal pain/nausea/vomiting/diarrhea/hematochezia/hematemesis/melena Genitourinary: Denies any dysuria/hematuria Musculoskeletal: denies joint pain or joint swelling or deformities Skin: No ulcers or rash Neurological: denies Weakness or numbness of extremities/facial droop/loss of balance Endocrine: Denies any heat or cold intolerance/polyuria/polydipsia/polyphagia Hematologic/Lymphatic: denies lymphadenopathy Allergic/Immunologic: Denies any seasonal allergy/sneezing/tearing from the eyes Physical Exam Vitals and Measurements T: 34.9 C (Rectal) HR: 86 (Monitored) BP: 156/79 SpO2: 98% HT: 187 cm WT: 114.4 kg BMI: 32.71 Weight Dosing Weight: 114.4 kg (05/08/24) General Appearance: Patient comfortably lying on bed, not in acute distress Head: Normocephalic, atraumatic EENT: PERRLA, Neck: Supple, no JVD, no mass Cardiac: s1s2,RRR, no murmurs or rubs or gallops Lungs: Clear to auscultation bilaterally, no wheeze or rhonchi or crackles Abdomen: Soft , Nontender, no organomegaly, bowel sounds heard Musculoskeletal: Full ROM , no gross deformities Extremities: No rash or ulcers or pedal edema Neurological: Alert, oriented x 3, grossly no focal neurological deficits Skin: No rash or ulcers Lab Results 05/08 06:27 WBC: 8.1 Hgb: 10.3 L Hct: 30.8 L Platelet: 198 Neutrophil %: 80.6 H Assessment/Plan Likely cardiac chest pain Paroxysmal atrial fibrillation New onset cardiomyopathy (EF 25-30%) GENE /GENE on CKD (baseline Cr 2.6-2.8) Uncontrolled diabetes mellitus Hypertension Hyperlipidemia 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 Troponin has been negative x 4. Based on patient's risk factors, HEART score is 5. Serial troponin and EKG. Will start aspirin and atorvastatin. Will switch Eliquis to heparin by weight for now. With history of recent diagnosis of cardiomyopathy and chest pain, will ideally needleft heart cathfor ischemic evaluation. But patient still has infection (Claire's gangrene) - We will get the stress test. Patient is euvolemic on physical exam With history of recent phoria gangrene and GENE, will hold off diuretics and Jardiance. - Will start him on low dose Entresto. Patient is GENE/GENE on CKD. Creatinine was 2.8 and overall. Repeat BMP this morning. Will consult nephrology. Continue home medications of antibiotics for recent Claire's gangrene. Will consult infectious disease. 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 Medications Home Medications (20) Active amLODIPine 10 mg oral tablet 10 mg = 1 tab(s), Oral, qDay bacitracin topical ointment 1 artemio, Topical, BID Bumex 1 mg = 1 tab(s), Oral, BID cefdinir 300 mg oral capsule 300 mg = 1 cap(s), Oral, BID Dakins Half Strength 0.25% topical solution 1 artemio, Topical, BID Eliquis 5 mg oral tablet 5 mg = 1 tab(s), Oral, BID emollients, topical 1 artemio, Topical, BID gabapentin 100 mg oral capsule 300 mg = 3 cap(s), Oral, qDay glimepiride 4 mg oral tablet 8 mg = 2 tab(s), Oral, with breakfast insulin isophane (NPH) 8 unit(s), Subcutaneous, TIDAC Jardiance 10 mg oral tablet 10 mg = 1 tab(s), Oral, qAM Lantus Solostar Pen 100 units/mL 3 mL Pen 30 unit(s), Subcutaneous, qHS lidocaine 4% patch , Transdermal, q24h losartan 25 mg oral tablet 25 mg = 1 tab(s), Oral, qDay minocycline 100 mg oral capsule 100 mg = 1 cap(s), Oral, q12h omeprazole 40 mg oral delayed release capsule 40 mg = 1 cap(s), Oral, BID rosuvastatin 10 mg oral tablet 10 mg = 1 tab(s), qDay Toprol-XL 100 mg oral tablet, extended release 100 mg = 1 tab(s), Oral, BID Tylenol 8 Hour 650 mg oral tablet, extended release 1,300 mg = 2 tab(s), PRN, Oral, q8h Zyvox 600 mg oral tablet 600 mg = 1 tab(s), Oral, BID Allergies ampicillin Unknown penicillin Unknown Social History Smoking Status - 08/17/2018 Current every day smoker Alcohol - No Risk, 09/19/2020 Use: Current. Frequency: 1-2 times per year., 07/07/2023 Home/Environment Living situation: Home/Independent. Safe place to go: Yes. Financial concerns: No. Domestic Concerns: None., 03/08/2024 Nutrition/Health Type of diet: Regular. Appetite Good. Eating Difficulties None., 03/08/2024 Substance Abuse - Denies Substance Abuse, 08/17/2018 Use: Never., 04/30/2019 Tobacco - No Risk, 09/19/2020 Tobacco Use: 10 or more cigarettes (1/2 pack or more)/day in last 30 days. Type: Cigarettes., 04/30/2019 Family History Patient was adopted Alcohol abuse: Father. Diabetes: Father. Health Status Family Member(s) Immunizations tetanus/diphth/pertuss (Tdap) adult/adol: 0.5 mL (08/17/18) Code Status Code Status - Ordered -- 05/08/24 5:49:00 EDT, Full Code, Constant Order Digitally Signed by JUMANA WALKER MD on 05/08/2024 08:[address] [facility] [id number] Note ORIGINAL EXAMINATION: TWO XRAY VIEWS OF THE CHEST 05/08/2024 6:53 am COMPARISON: None. HISTORY: ORDERING SYSTEM PROVIDED HISTORY: Reason for Exam: Chest Pain, dyspnea FINDINGS: Heart size is normal. No pneumothorax. No definite large effusion. Curvilinear opacities present at the right lung base. IMPRESSION: Mild hazy airspace disease at the right lung base. Interpreted by: Lina Armando MD Preliminary Report By: Lina Armando MD Electronically signed By Lina Armando MD Dictated Date: 05/08/2024 7:33:27 AM Prelim Date: 05/08/2024 7:33:55 AM Sign Date: 05/08/2024 7:33:55 AM Ordering Provider: JU[facility] [id number] Note ORIGINAL EXAMINATION: ONE XRAY VIEW OF THE CHEST05/07/2024 11:31 am COMPARISON: 04/28/2024 HISTORY: ORDERING SYSTEM PROVIDED HISTORY: Reason for Exam: chest pain FINDINGS: The cardiomediastinal contours are unchanged. Low lung volumes with hypoventilatory changes. Small right lower lung infiltrate, improved from previous scan.. There is no large pleural effusion, or pneumothorax. There are no visible acute abnormalities to osseous structures. IMPRESSION: Right lower lung infiltrate, improved from previous x-ray. Follow-up to resolution.. I have personally reviewed the images of this examination and agree with the resident's findings and interpretation. Interpreted by: Patt Hu MD Preliminary Report By: Chalino Reyes Electronically signed By Patt Hu MD Dictated Date: 05/07/2024 11:38:05 AM Prelim Date: 05/07/2024 11:41:47 AM Sign Date: 05/07/2024 11:41:47 AM Ordering Provider: JIMENA [facility]06-19-2024 NoteSinus rhythm Right bundle branch block Compared to ECG at 04/22/2024 09:09:03 BORDERLINE ECG Electronic Signature: JIMENA HOGAN DO 05/07/2024 11:00:04[facility] 06-18-2024 Nurse Progress note report called to omari wong in [place] Digitally Signed by CELSO Constantino on 05/06/2024 05:[address] [facility] [id number] Hospital Discharge instructions Patient Education 05/06/2024 13:00:29 Wound Packing Wound Packing Wound packing usually involves placing a moistened packing material into your wound and then covering it with an outer bandage (dressing). This helps promote proper healing of deep tissue and tissue under the skin. It also helps prevent bleeding, infection, and further injury. Wounds are packed until deep tissues heal. The time it takes for this to occur is different for everyone. Your health care provider will show you how to pack and dress your wound. Using gloves and a clean technique is important in order to avoid spreading germs into your wound. Supplies needed: Soap and water. Disposable gloves. Wetting solution. Clean bowl. Clean packing material (gauze or gauze sponges). Clean paper towels. Outer dressing. Tape. Cotton-tipped swabs. Small plastic bag. How to pack your wound Follow your health care provider's instructions on how often you need to change dressings and pack your wound. You will likely be asked to change dressings 1 2 times a day. Preparing the new packing material 1.Clean and disinfect your work surface or countertop. 2.Set a plastic bag on or near your work surface. 3.Wash your hands well with soap and water. 4.Put a clean paper towel on the counter. 5.Put a clean bowl on the towel. Be sure to only touch the outside of the bowl when handling it. 6.Pour wetting solution into the bowl. 7.Cut your packing material (gauze or sponges) to the right size for your wound. Drop it into the bowl. 8.Cut 4 tape strips that you will use to seal the outer dressing. 9.Put cotton-tipped swabs on the clean paper towel. Removing the old packing material and dressing 1.Put on a set of gloves. 2.Gently remove the old dressing and packing material. 3.Remove your gloves. 4.Put the removed items, including the gloves, into the plastic bag to throw away later. 5.Wash your hands well with soap and water again. Applying the new packing material and dressing 1.Put on a new set of gloves. 2.Squeeze the packing material in the bowl to release the extra liquid. The packing material shouldbe moist, but not dripping wet. 3.Gently place the packing material into the wound. Use a cotton-tipped swab to guide it into place, filling all of the space. 4.Dry your gloved fingertips on the paper towel. 5.Open up your outer dressing supplies and put them on a dry part of the paper towel. Keep them from getting wet. 6.Place the outer dressing over the packed wound. 7.Tape the 4 outer edges of the outer dressing in place. 8.Remove your gloves. 9.Wash your hands again with soap and water. 10.Clean and disinfect your work surface or countertop. General tips Follow your health care provider's instructions on how much to pack the wound. At first, you may need to pack it more tightly to help stop bleeding. As the wound begins to heal inside, you will use less packing material and pack the wound loosely to allow tissue to heal slowly from the inside out. Keep the dressing clean and dry. Follow any other instructions given by your health care provider on how to aid healing. This may include applying warm or cold compresses, raising (elevating) the affected area, or wearing a compression dressing. Check your wound site every day for signs of infection. Check for: ?More redness, swelling, or pain. ?More fluid or blood. ?Warmth. ?Pus or a bad smell. Ask your health care provider about avoiding sun exposure and using sunscreen when the dressings are no longer needed. Keep all follow-up visits as told by your health care provider. This is important. Contact a health care provider if: You have more drainage, redness, swelling, or pain at your wound site. You notice a bad smell coming from the wound site. Your wound site feels warm to the touch. Your wound becomes larger or deeper. Your wound changes in size or depth. Get help right away if: Your pain is not controlled with pain medicine. The tissue inside your wound changes color from pink to white, yellow, or black. You have a fever. You have shaking chills. You are having trouble packing your wound. Summary Wound packing usually involves placing a moistened packing material into your wound and then covering it with an outer bandage (dressing). Follow your health care provider's instructions on how often you need to change dressings and pack your wound. You will likely be asked to change dressings 1 2 times a day. When packing your wound, it is important to use gloves and a clean technique in order to avoid spreading germs into the wound. Check your wound site every day for signs of infection. This information is not intended to replace advice given to you by your health care provider. Make sure you discuss any questions you have with your health care provider. Document Released: 06/02/2015 Document Revised: 12/12/2018 Document Reviewed: 12/12/2018 [employer] Patient Education 2020 [employer]. Follow Up Care 04/15/2024 22:37:31 With:Kalpeshemani shyanne - skilled - [phone] Address:Unknown When:1-2 days With:TELMA GUEVARA MD Address: [address] [facility] [place] [address]- When: Unknown Comments:6 weeks for repeat colonoscopy With:BERNIE HERNÁNDEZ MD, [facility] Address: [address] [place] [address] [phone] When:1-2 days With:SON STEEL BA, MD, Infectious Disease, [facility] Address: [facility] [address] [place] [address] [phone] When:1-2 days Comments:2-3 weeks With:GLENN THAYER MD Address: [address] [facility] [address] [facility] [place] [address] [phone] When:5 to 7 days Comments:for ischemic evaluation With:[facility] Address: [address] [place] [address]- When:1-2 days Comments:Please follow up with Dr. Parnell in 2 weeks in the wound center With:[facility] Address: [address] [place] [phone]- When:1-2 days Comments:Call for follow up visit for wound care management With:PHOEBE ADAM Address: [address] [place] [address]- Business (1) When:1-[address] 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 Subjective Is to be clean at this time with less drainage and none slough or necrotic tissue was noticed once I remove the dressing Objective Vitals and Measurements T: 36.9 C (Oral) TMIN: 36.2 C (Temporal Artery) TMAX: 37.51 C HR: 80 RR: 16 BP: 120/72 SpO2: 91% The area was noticed around the penis suprapubic penis area as well as around the scrotal area which is partially covered the testicles which appear to be viable. Intake and Output 7AM Yesterday to 7AM Today Intake and Output (Last 24 hours) Intake Oral Intake 560.00 Administration Information 808.33 Output Urinary Catheter Output: 1425.00 Intra-Op EBL 35.00 Stool Count 3.00 Total Summary Total Intake 1368.33 Total Output 1460.00 Fluid Balance -91.67 Physical Exam Weight Dosing Weight: 125 kg (04/22/24) Medications Medications (31) Active Scheduled: (22) amLODIPine 10 mg tablet 10 mg 1 tab(s), Oral, qDay apixaban 5 mg tablet 5 mg 1 tab(s), Oral, BID bacitracin topical 500 units/g Ointment TUBE 1 artemio, Topical, BID bumetanide 1 mg tablet 1 mg 1 tab(s), Oral, BID cefdinir 300 mg Capsule 300 mg 1 cap(s), Oral, BID emollients (Eucerin Cream) 30gm 1 artemio, Topical, BID empagliflozin 10 mg tablet 10 mg 1 tab(s), Oral, qAM gabapentin 300 mg Capsule 300 mg 1 cap(s), Oral, qDay glimepiride 2 mg Tablet 8 mg 4 tab(s), Oral, with breakfast insulin glargine 30 unit(s) 0.3 mL, Subcutaneous (INT), qHS insulin isophane human recombinant 100 units/ml (10 mL) Inj 8 unit(s) 0.08 mL, Subcutaneous, TIDAC insulin lispro 100 units/mL Soln (3 mL) Give 0-10 units/dose, Subcutaneous, achs lidocaine patch REMOVAL 1 EA, Miscellaneous, q24h lidocaine topical 4% patch 1 patch(es), Transdermal, q24h linezolid 600 mg tablet 600 mg 1 tab(s), Oral, BID losartan 25 mg tablet 25 mg 1 tab(s), Oral, qDay menthol-zinc oxide topical ointment 4oz 1 artemio, Topical, amhs metoprolol succinate 100 mg ER tablet 100 mg 1 tab(s), Oral, BID minocycline 100 mg Capsule 100 mg 1 cap(s), Oral, q12h omeprazole [address] capsule 40 mg 1 cap(s), Oral, BIDAC rosuvastatin 10 mg tablet 10 mg 1 tab(s), Oral, qDay sodium hypochlorite topical 0.25% Soln 1 artemio, Topical, BID Continuous: (1) D5/LR 1,000 mL 1,000 mL, Intravenous, 50 mL/hr PRN: (8) albuterol - ipratropium 2.5 mg-0.5 mg/3 mL Inhal Elena UD 3 mL, Inhalation, q2hRT dextrose 50% Solution Disp syringe 50 mL 12.5 gram(s) 25 mL, IV Push, AsDirected HYDROmorphone 0.5 mg/0.5 mL PF syringe 0.2 mg 0.2 mL, IV Push, q3h menthol-zinc oxide topical ointment 4oz 1 artemio, Topical, BID metoprolol 1 mg/mL (5mL) vial 10 mg 10 mL, IV Push, q6h morphine 2 mg/mL 1 mL syringe 2 mg 1 mL, IV Push, q3h ondansetron 2 mg/ 1 mL 2 mL INJ 4 mg 2 mL, IV Push, q6h ondansetron 2 mg/ 1 mL 2 mL INJ 4 mg 2 mL, IV Push, q4h Lab Results 05/06 05:20 WBC: 9.9 Hgb: 9.5 L Hct: 28.8 L Platelet: 189 Neutrophil %: 71.0 Glucose Level: 203 H Sodium Level: 137 Potassium Level: 4.1 BUN: 51.0 H Creatinine Lvl (s): 2.42 H EKG No qualifying data available. Assessment/Plan A-fib Acute respiratory failure GENE (acute kidney injury) Anemia Diabetes mellitus Claire gangrene Obesity Septic shock Orders: apixaban(Eliquis), 5 mg= 1 tab(s), Oral, BID Dextrose 5% in Lactated Ringers intravenous solution 1,000 mL(D5LR 1000 mL 1,000 mL), 1000 mL, Intravenous empagliflozin(Jardiance), 10 mg= 1 tab(s), Oral, qAM gabapentin, 300 mg= 1 cap(s), Oral, qDay glimepiride, 8 mg= 4 tab(s), Oral, with breakfast morphine, 2 mg= 1 mL, IV Push, q3h, PRN ondansetron(Zofran), 4 mg= 2 mL, IV Push, q4h, PRN sodium hypochlorite topical(Dakins Full Strength 0.5% topical solution), 1 artemio, Perineum, BID [place] [employer] Diet(ADA Diet), 05/05/24 16:29:00 EDT, Start Meal: Now, Constant Order, N/A, N/A Call Parameters, 05/05/24 16:25:00 EDT, For circulatory changes, excessive bleeding, drainage, painor swelling at operative site., Constant order Call Parameters, 05/05/24 15:15:00 EDT, For circulatory changes, excessive bleeding, drainage, painor swelling at operative site., Constant order Call Parameters, 05/05/24 16:26:00 EDT, For circulatory changes, excessive bleeding, drainage, painor swelling at operative site., Constant order Change dressing(Dressing Change), 05/06/24 8:31:00 EDT, Site: *Other, specify in special instructions, Cleanse with: Normal saline, Apply to Wound Bed: Pack w/ (specify in sp. instructions), Cover with: ABD, BID, Dakin solution pack with kerlex Culture Wound Deep Aerobe/Anaerobe w Gram Stain(Wound Deep Culture (Aerobe and Anaerobe) w Gram Stain), 05/05/24 15:06:00 EDT, Routine collect, Wound (deep), Scrotum, Collected, Stop date 05/05/24 15:06:00 EDT, Nurse collect Culture Wound Deep Aerobe/Anaerobe w Gram Stain(Wound Deep Culture (Aerobe and Anaerobe) w Gram Stain), 05/05/24 15:06:00 EDT, Routine collect, Wound (deep), Perirectal, Collected, Stop date 05/05/2415:06:00 EDT, Nurse collect Diet Order, 05/05/24 16:26:00 EDT, Start Meal: Next meal, Regular, Constant Order, : N/A, : N/A Intake and Output, 05/05/24 16:25:00 EDT, q4h, empty and record each drain separately Intake and Output, 05/05/24 15:15:00 EDT, q4h, empty and record each drain separately Vital Signs, 05/05/24 16:26:00 EDT, q4h Vital Signs, 05/05/24 15:15:00 EDT, q4h Vital Signs Call Parameters, 05/05/24 15:15:00 EDT, Temp Range: >38.8 degrees Celsius, Pulse Range: <60 or >120 beats per minute, BP Range SBP < 90 or >160 mmHg, Constant Order Vital Signs Call Parameters, 05/05/24 16:26:00 EDT, Temp Range: >38.8 degrees Celsius, Pulse Range: <60 or >120 beats per minute, BP Range SBP < 90 or >160 mmHg, Constant Order This morning the patient wants to go to a long-term which he can be followed up there with dressing changes with Dakin's solution twice a day and patient will require follow-up at the wound clinicin about 2 to 3 weeks once patient is evaluated appears clean he may require some skin grafting procedure on the penis as well as in the scrotal area. Digitally Signed by FRANCESCA PARNELL MD on 05/06/2024 01:[address] [phone] Note Discharge Instructions Thank you for allowing [facility] to assist you with your healthcare needs. The following is importantdischarge information regarding your hospital visit. Your Care Team PHOEBE ADAM APRN-PRODUCT ENGINEER Your Diagnosis A-fib Acute respiratory failure GENE (acute kidney injury) Anemia Diabetes mellitus Claire gangrene Obesity Septic shock What to do next Follow Up Appointments Follow Up with Omari Wong - [facility] - [phone] When:Within 1-2 days Follow Up with TELMA GUEVARA MD Where:[address] [facility] [place] [address]- Additional Information: 6 weeks for repeat colonoscopy Follow Up with BERNIE HERNÁNDEZ MD, [facility] When:Within 1-2 days Where:[address] [facility] [address] [place] [address]- [phone] Follow Up with SON STEEL BA, MD, Infectious Disease, [facility] When:Within 1-2 days Where:[facility] [address] [place] [address] [phone] Additional Information: 2-3 weeks Follow Up with GLENN THAYER MD When:Within 5 to 7 days Where:[address] [facility] [address] [facility] [place] [address] [phone] Additional Information: for ischemic evaluation Follow Up with [facility] When:Within 1-2 days Where:[address] [place] [id number]- Additional Information: Please follow up with Dr. Parnell in 2 weeks in the wound center Follow Up with [facility] When:Within 1-2 days Where:[address] [place] [id number]- Additional Information: Call for follow up visit for wound care management Follow Up with PHOEBE ADAM When:Within 1-2 days Where:[address] [facility] [place] [address]- Business (1) The Following Activity and Diet Have Been Ordered for You Transfer of Care Activity - Ordered -- Activity As Tolerated, 05/06/24 11:34:00 EDT Transfer of Care Diet - Ordered -- Type of Diet: Regular Diet, 05/06/24 11:34:00 EDT The Following Equipment Has Been Ordered for You Discharge Home Equipment Discharge Blood Glucose Monitoring - Ordered -- When to Test: Before each meal and at bedtime Transfer of Care Urinary Catheter Insertion/Care - Ordered -- Indwelling, Routine care per facility guidelines., 05/06/24 11:34:26 EDT Transfer of Care Wound Care - Ordered -- *Other, specify in special instructions, Change Dressing: BID, scrotum, ABD, dakins solution with kerlex, 05/06/24 11:34:00 EDT The Following Treatments Have Been Ordered for You Discharge Labs Discharge Outpatient Labwork - Ordered -- CBC, CMP, scrotal infection, follow-up within: 1 week, Results Notify to: SON STEEL BA, MD Results Notify to: Dr. Hernández, 05/06/24 11:40:00 EDT Transfer of Care Labwork - Ordered -- bmp, CKD, follow-up within: 1-3 days, Results Notify to: PHOEBE ADAM AUTOMATION TECH- PRODUCT ENGINEER, 05/06/24 11:34:00 EDT Discharge Radiology No qualifying data available. Other Therapies Discharge Blood Glucose Monitoring - Ordered -- When to Test: Before each meal and at bedtime Transfer of Care OT - Ordered -- Reason for therapy: debility, 05/06/24 11:34:00 EDT Transfer of Care PT - Ordered -- Reason for therapy: debility, 05/06/24 11:34:00 EDT Post Acute Orders Transfer of Care Admission Level of Care - Ordered -- Level of Care SNF, 05/06/24 11:34:26 EDT Transfer of Care Code Status - Ordered -- Full Code, Constant Order Transfer of Care Labwork - Ordered -- bmp, CKD, follow-up within: 1-3 days, Results Notify to: PHOEBE ADAM APRN- PRODUCT ENGINEER, 05/06/24 11:34:00 EDT Transfer of Care Orders Electronically Signed By - Ordered -- 05/06/24 11:34:00 EDT, VIANCA CONTI MD Transfer of Care Prognosis - Ordered -- Fair, Patient Aware: Yes Transfer of Care Rehab Potential - Ordered -- Rehab potential fair, 05/06/24 11:34:26 EDT Transfer of Care Urinary Catheter Insertion/Care - Ordered -- Indwelling, Routine care per facility guidelines., 05/06/24 11:34:26 EDT Someone Will Contact You Regarding These Home Health Referrals No home referrals have been ordered for you. No one will call you. Allergies ampicillin Unknown penicillin Unknown Medications Please ask your primary doctor or pharmacist before taking any other medication not listed, including over the counter drugs, herbal medications, vitamins and or supplements as they may interact withyour home medications. What How Much When Instructions Last Dose New acetaminophen (Tylenol 8 Hour 650 mg oral tablet, extended release) 2 tab(s) by mouth Every 8 hours as needed for as needed for pain Duration: 10 Days New losartan (losartan 25 mg oral tablet) 1 tab(s) by mouth Once a day New sodium hypochlorite topical (Dakins Half Strength 0.25% topical solution) 1 application Topical Two (2) times a day Unchanged amLODIPine (amLODIPine 10 mg oral tablet) 1 tab(s) by mouth Once a day Unchanged apixaban (Eliquis 5 mg oral tablet) 1 tab(s) by mouth Two (2) times a day Unchanged bacitracin topical (bacitracin topical ointment) 1 application Topical Two (2) times a day Unchanged bumetanide (Bumex) 1 Milligram by mouth Two (2) times a day Unchanged cefdinir (cefdinir 300 mg oral capsule) 1 cap by mouth Two (2) times a day Unchanged emollients, topical 1 application Topical Two (2) times a day Unchanged empagliflozin (Jardiance 10 mg oral tablet) 1 tab(s) by mouth Once a day (in the morning) Unchanged gabapentin (gabapentin 100 mg oral capsule) 3 cap by mouth Once a day Unchanged glimepiride (glimepiride 4 mg oral tablet) 2 tab(s) by mouth With breakfast Unchanged insulin glargine (Lantus Solostar Pen 100 units/ mL 3 mL Pen) 30 unit(s) Subcutaneous Daily at bedtime Unchanged insulin isophane (NPH) 8 unit(s) Subcutaneous Three (3) times a day before meals Unchanged lidocaine topical (lidocaine 4% patch) Transdermal Every 24 hours Unchanged linezolid (Zyvox 600 mg oral tablet) 1 tab(s) by mouth Two (2) times a day Unchanged metoprolol (Toprol-XL 100 mg oral tablet, extended release) 1 tab(s) by mouth Two (2) times a day Unchanged minocycline (minocycline 100 mg oral capsule) 1 cap by mouth Every 12 hours Unchanged omeprazole (omeprazole 40 mg oral delayed release capsule) 1 cap by mouth Two (2) times a day Unchanged rosuvastatin (rosuvastatin 10 mg oral tablet) 1 tab(s) Once a day AM What How Much When Comments Stop Taking amiodarone (amiodarone 200 mg oral tablet) 2 tab(s) by mouth Once a day with a meal Stop Taking lisinopril (lisinopril 20 mg oral tablet) 1 tab(s) by mouth Once a day Please take this list to your next doctor s visit. Bring all medications you take, including over the counter medications, herbals and other supplements with you to your doctor s visit. Patients and families are reminded to discard old lists and to update any records with all medication providers or retail pharmacies. Medication Leaflets acetaminophen (oral) (a SEET a MIN oh fen) Anaclaude AF, Children's Tylenol, Leader 8 Hour Pain Reliever, Mapap, M-Pap, Pharbetol, Silapap Childrens, Tempra Quicklets, Tycolene, Tylenol What is the most important information I should know about acetaminophen? Do not take more of this medication than is recommended. An overdose of acetaminophen can damage your liver or cause . Call your doctor at once if you have loss of appetite, nausea, vomiting, stomach pain (upper right side), tiredness, itching, dark urine, mlei-colored stools, jaundice (yellowing of the skin or eyes). In rare cases, acetaminophen may cause a severe skin reaction. Stop taking this medicine and call your doctor right away if you have skin redness or a rash that spreads and causes blistering and peeling. What is acetaminophen? Acetaminophen is used to reduce fever, relieve minor aches and pains such as colds or flu, headache, sore throat, tooth pain, back pain, joint or muscle pain, and menstrual cramps. Acetaminophen may also be used for purposes not listed in this medication guide. What should I discuss with my healthcare provider before taking acetaminophen? You should not take acetaminophen if you are allergic to it, or if you take other medications that contain acetaminophen. Ask a doctor or pharmacist if this medicine is safe to use if you have or have ever had: if you use a blood thinner (such as warfarin); any allergies; or liver disease, cirrhosis, alcoholism, or more than 3 alcoholic beverages per day. Ask a doctor before using this medicine if you are or . Do not give this medicine to a child without medical advice. How should I take acetaminophen? Use exactly as directed on the label, or as prescribed by your doctor. An acetaminophen overdose can damage your liver or cause . Your dose needs may change if you switch to a different brand, strength, or form of this medicine. Avoid medication errors by using exactly as directed on the label, or as prescribed by your doctor. Doses are based on weight in children. Your child's dose may change if the child gains or loses weight. Ask a doctor or pharmacist before giving this medicine to a child. Swallow the extended-release tablet whole with a full glass of water and do not crush, chew, or break it. You must chew the chewable tablet before you swallow it. Shake the oral suspension (liquid). Measure any liquid dose with the supplied measuring device (nota kitchen spoon). Read and carefully follow the instructions provided with this medicine on how to prepare and take acetaminophen oral powder. Ask your doctor or pharmacist if you don't understand these instructions. Stop taking the medicine and call your doctor if your symptoms do not improve after a certain period of time, or if they get worse. This medicine may cause false results on certain blood tests. Tell the laboratory staff that you use acetaminophen. Store at room temperature away from heat and moisture. Protect the liquid medicine from light. [place] dose of the oral powder in its packet until you are ready to use it. What happens if I miss a dose? Acetaminophen is used when needed. If you are on a dosing schedule, skip any missed dose. Do not use two doses at one time. What happens if I overdose? Seek emergency medical attention or call the Poison Help line at . An overdose can befatal. Overdose symptoms include vomiting, stomach pain, and yellowing of your skin or eyes. What should I avoid while taking acetaminophen? Ask a doctor or pharmacist before using any other medicine that may contain acetaminophen (sometimes abbreviated as APAP). Drinking alcohol may increase your risk of liver damage. What are the possible side effects of acetaminophen? Get emergency medical help if you have signs of an allergic reaction: hives, difficult breathing, swelling of your face, lips, tongue, or throat. In rare cases, acetaminophen may cause a severe skin reaction that can be fatal, even if you took acetaminophen in the past and had no reaction. Stop taking this medicine and call your doctor right away if you have skin redness or a rash that spreads and causes blistering and peeling. Stop taking acetaminophen and call your doctor at once if you have: any new or worsening symptoms; redness, swelling; or liver problems--loss of appetite, nausea, vomiting, stomach pain (upper right side), tiredness, itching, dark urine, meli-colored stools, jaundice (yellowing of the skin or eyes). Less serious side effects may be more likely, and you may have none at all. This is not a complete list of side effects and others may occur. Call your doctor for medical advice about side effects. You may report side effects to FDA at 0-230-MSZ-7994. What other drugs will affect acetaminophen? Other drugs may affect acetaminophen, including prescription and zgvy-ixy-rynnlxw medicines, vitamins, and herbal products. Tell your doctor about all other medicines you use. Where can I get more information? Your doctor or pharmacist can provide more information about acetaminophen. Remember, keep this and all other medicines out of the reach of children, never share your medicines with others, and use this medication only for the indication prescribed. Every effort has been made to ensure that the information provided by [employer]. ('[employer]') is accurate, up-to-date, and complete, but no guarantee is made to that effect. Drug information contained herein may be time sensitive. [employer] information has been compiled for use by healthcare practitioners and consumers in the [place] and therefore [employer] does not warrant that uses outside of the [place] are appropriate, unless specifically indicated otherwise. [employer] drug information does not endorse drugs, diagnose patients or recommend therapy. T[employer] drug information isan informational resource designed to assist licensed healthcare practitioners in caring for their p atients and/or to serve consumers viewing this service as a supplement to, and not a substitute for, the expertise, skill, knowledge and judgment of healthcare practitioners. The absence of a warningfor a given drug or drug combination in no way should be construed to indicate that the drug or drug combination is safe, effective or appropriate for any given patient. [facility] does not assume any responsibility for any aspect of healthcare administered with the aid of information [employer] provides. The information contained herein is not intended to cover all possible uses, directions, precautions, warnings, drug interactions, allergic reactions, or adverse effects. If you have questions about the drugs you are taking, check with your doctor, nurse or pharmacist. Copyright 6153-7947 [facility] [employer]. Version: .. Revision Date: 12/04/2023. Education Materials Wound Packing Wound packing usually involves placing a moistened packing material into your wound and then covering it with an outer bandage (dressing). This helps promote proper healing of deep tissue and tissue under the skin. It also helps prevent bleeding, infection, and further injury. Wounds are packed until deep tissues heal. The time it takes for this to occur is different for everyone. Your health care provider will show you how to pack and dress your wound. Using gloves and a clean technique is important in order to avoid spreading germs into your wound. Supplies needed: Soap and water. Disposable gloves. Wetting solution. Clean bowl. Clean packing material (gauze or gauze sponges). Clean paper towels. Outer dressing. Tape. Cotton-tipped swabs. Small plastic bag. How to pack your wound Follow your health care provider's instructions on how often you need to change dressings and pack your wound. You will likely be asked to change dressings 1 2 times a day. Preparing the new packing material 1. Clean and disinfect your work surface or countertop. 2. Set a plastic bag on or near your work surface. 3. Wash your hands well with soap and water. 4. Put a clean paper towel on the counter. 5. Put a clean bowl on the towel. Be sure to only touch the outside of the bowl when handling it. 6. Pour wetting solution into the bowl. 7. Cut your packing material (gauze or sponges) to the right size for your wound. Drop it into the bowl. 8. Cut 4 tape strips that you will use to seal the outer dressing. 9. Put cotton-tipped swabs on the clean paper towel. Removing the old packing material and dressing 1. Put on a set of gloves. 2. Gently remove the old dressing and packing material. 3. Remove your gloves. 4. Put the removed items, including the gloves, into the plastic bag to throw away later. 5. Wash your hands well with soap and water again. Applying the new packing material and dressing 1. Put on a new set of gloves. 2. Squeeze the packing material in the bowl to release the extra liquid. The packing material should be moist, but not dripping wet. 3. Gently place the packing material into the wound. Use a cotton-tipped swab to guide it into place, filling all of the space. 4. Dry your gloved fingertips on the paper towel. 5. Open up your outer dressing supplies and put them on a dry part of the paper towel. Keep them from getting wet. 6. Place the outer dressing over the packed wound. 7. Tape the 4 outer edges of the outer dressing in place. 8. Remove your gloves. 9. Wash your hands again with soap and water. 10. Clean and disinfect your work surface or countertop. General tips Follow your health care provider's instructions on how much to pack the wound. At first, you may need to pack it more tightly to help stop bleeding. As the wound begins to heal inside, you will use less packing material and pack the wound loosely to allow tissue to heal slowly from the inside out. Keep the dressing clean and dry. Follow any other instructions given by your health care provider on how to aid healing. This may include applying warm or cold compresses, raising (elevating) the affected area, or wearing a compression dressing. Check your wound site every day for signs of infection. Check for: ? More redness, swelling, or pain. ? More fluid or blood. ? Warmth. ? Pus or a bad smell. Ask your health care provider about avoiding sun exposure and using sunscreen when the dressings are no longer needed. Keep all follow-up visits as told by your health care provider. This is important. Contact a health care provider if: You have more drainage, redness, swelling, or pain at your wound site. You notice a bad smell coming from the wound site. Your wound site feels warm to the touch. Your wound becomes larger or deeper. Your wound changes in size or depth. Get help right away if: Your pain is not controlled with pain medicine. The tissue inside your wound changes color from pink to white, yellow, or black. You have a fever. You have shaking chills. You are having trouble packing your wound. Summary Wound packing usually involves placing a moistened packing material into your wound and then covering it with an outer bandage (dressing). Follow your health care provider's instructions on how often you need to change dressings and pack your wound. You will likely be asked to change dressings 1 2 times a day. When packing your wound, it is important to use gloves and a clean technique in order to avoid spreading germs into the wound. Check your wound site every day for signs of infection. This information is not intended to replace advice given to you by your health care provider. Make sure you discuss any questions you have with your health care provider. Document Released: 06/02/2015 Document Revised: 12/12/2018 Document Reviewed: 12/12/2018 [employer] Patient Education 2020 [employer] Additional Information VACCINATE! IT SAVES LIVES! Members of the community who have not yet received the COVID-19 vaccine and would like to receive it can visit one of [facility] vaccine clinics. There are many vaccine clinic locations within the [facility]. For locations and available times, please visit [email or web address].[place].gov/. It is important to note that some COVID mobile vaccine clinics are held outdoors and may be canceled in rainy or stormy conditions. To learn more about pediatric vaccinations (ages 5-11), we invite you to visit the [facility] webpage. https://www.[facility].org/pages/9541-Azwsa-Luyaseikllk-Hjfarhamwm-Zhmoc-Lwh stions.htmlTo learn more about the COVID-19 vaccine, we invite you to visit the CDC website for a list of frequently asked questions.https://www.cdc.gov/coronavirus/2019-ncov/vaccines/faq.html [facility] Patient Portal Access Instructions: Stay connected with your healthcare team and access your personal medical information anytime with the [employer] Patient Portal. Please follow the directions below to create your [employer] account: 1.Access the email account you provided upon registration to the hospital/physician office.2.Look for an invitation email from [facility].3.Open the email and access the invitation link: AcceptInvitation to [facility].4.Fill in the required nguyen to create your account. To access your account, visit [employer] ([employer] It [employer]et. Click the blue button labeled Access Patient Portal and then log in with the username and password that you created in the steps above. You will be able to view your test results, lab results, a summary of your visits, upcoming appointments and more. There is also a convenient messaging option where you can send secure messages to your [employer]. In addition, you will have the ability to download any documents or summaries to your computer and/or send the information securely to a physician. Remember that your healthcare information is confidential, so carefully consider who you will allowto register on the [facility] Patient Portal for access to your information. You can also access the [facility] Patient Portal on the [employer] artemio. Simply click on Patient Portal and then log into your account. If you would like to receive a full copy of your medical records, please contact the [facility] Medical Records Department by calling [phone], Sunday through Sunday between 8 a.m. and 4:30 p.m. HOW TO SAFELY DISPOSE OF PRESCRIPTION MEDICATIONS Please use one of the following methods to safely dispose of your unused medications. 1.Use a drug disposal kit: the drug disposal pouch allows you to safely discard your old and unuseddrugs. Ask your nurse to give you one when you are discharged.2.Visit a local take-back location: Many local pharmacies and police departments have programs that collect old and unwanted prescriptiondrugs. Call your local pharmacy or go to http://[place] PERL.yvrose/7D4Cu7q to find one close to you.3.Make use of household items: Use cat litter or old coffee grounds to dispose medications if other options arenot available. Mix your drugs with these household products, seal them in an airtight container andthrow it into the garbage. Call [facility]: [phone] to be sure your drugs can be disposed of in this way. Some medicines may require a different approach.4.Never flush your medications down the toilet. IF YOU HAVE BEEN PRESCRIBED AN OPIOID FOR PAIN If you have been prescribed an opioid (such as hydrocodone, oxycodone or morphine), it is critical to understand the possible side effects and risks of opioid pain medications. Even when taken as directed, opioids can have several side effects including: Tolerance, meaning you might need to take more of a medication for the same pain relief. Nausea, vomiting and/or constipation. Sleepiness, dizziness, dry mouth, confusion, depression or itching. Physical dependence, meaning you have withdrawal symptoms when a medication is stopped, can develop within a few days. KNOW YOUR RESPONSIBILITIES It is important to know exactly how much and how often to take the opioid pain medications you are prescribed. Never take opioids in higher amounts or more often than prescribed. Do not combine opioids with alcohol or other drugs that cause drowsiness, such as benzodiazepines, also known as benzos, including diazepam and alprazolam, muscle relaxants or sleep aids. Never sell or share prescription opioids. This is illegal. Store opioids in a secure place and out of reach of others (including children, family, friends and visitors). The last page of this document has been signed and retained as a CHART COPY. Signatures Patient Education Materials Wound Packing Medication Leaflets acetaminophen (oral) My discharge plan and instructions have been reviewed and explained to me and I,GURINDER HAHN understand my current condition and have read and understand these discharge instructions. I have received a written copy of the plan/instructions. If I have questions, I am aware that I should contact my doctor. Patient/Care Management Associate Signature: Date/Time: Relationship to Patient: Witness Name/Signature: [id number] Discharge summary Date of Service 05-06-2024 Discharge Diagnosis 1. Acute respiratory failure 2. Septic shock 3. Claire gangrene 4. GENE (acute kidney injury) 5. Diabetes mellitus 6. Anemia 7. A-fib 8. Obesity Additional Orders: Ordered: Dakins Half Strength 0.25% topical solution,Apply 1 artemio, Topical, BID, 0 Refill(s), Soln, 125 Ordered: Discharge,05/06/24 11:34:00 EDT, [facility] Ordered: Discharge Blood Glucose Monitoring,When to Test: Before each meal and at bedtime Discontinued: Discharge Outpatient Labwork,cbc, CMP, scrotal infection, follow- up within: 2 weeks, Results Notify to: Dr. Hernández, 05/06/24 11:38:00 EDT Discontinued: Discharge Outpatient Labwork,cbc, CMP, scrotal infection, follow- up within: 1 week, Results Notify to: Dr. Hernández, 05/06/24 11:39:00 EDT Ordered: Discharge Outpatient Labwork,CBC, CMP, scrotal infection, follow-up within: 1 week, Results Notify to: SON STEEL BA, MD Results Notify to: Dr. Hernández, 05/06/24 11:40:00 EDT Ordered: Transfer of Care Activity,Activity As Tolerated, 05/06/24 11:34:00 EDT Ordered: Transfer of Care Admission Level of Care,Level of Care SNF, 05/06/24 11:34:26 EDT Ordered: Transfer of Care Code Status,Full Code, Constant Order Ordered: Transfer of Care Diet,Type of Diet: Regular Diet, 05/06/24 11:34:00 EDT Ordered: Transfer of Care Labwork,bmp, CKD, follow-up within: 1-3 days, Results Notify to: PHOEBE ADAM APRN-PRODUCT ENGINEER, 05/06/24 11:34:00 EDT Ordered: Transfer of Care OT,Reason for therapy: debility, 05/06/24 11:34:00 EDT Ordered: Transfer of Care Orders Electronically Signed By,05/06/24 11:34:00 EDT, VIANCA CONTI MD Ordered: Transfer of Care PT,Reason for therapy: debility, 05/06/24 11:34:00 EDT Ordered: Transfer of Care Prognosis,Fair, Patient Aware: Yes Ordered: Transfer of Care Rehab Potential,Rehab potential fair, 05/06/24 11:34:26 EDT Ordered: Transfer of Care Urinary Catheter Insertion/Care,Indwelling, Routine care per facility guidelines., 05/06/24 11:34:26 EDT Ordered: Transfer of Care Wound Care,*Other, specify in special instructions, Change Dressing: BID,scrotum, ABD, dakins solution with kerlex, 05/06/24 11:34:00 EDT Ordered: Tylenol 8 Hour 650 mg oral tablet, extended release,Dose : 1,300 mg = 2 tab(s), Oral, q8h,PRN as needed for pain, X 10 day(s), # 50 tab(s), 0 Refill(s), 05/16/24 11:29:00 EDT, other reason (Rx) Discontinued: amiodarone 200 mg oral tablet,Dose : 400 mg = 2 tab(s), Oral, qDayM, 0 Refill(s) Ordered: losartan 25 mg oral tablet,Dose : 25 mg = 1 tab(s), Oral, qDay, 0 Refill(s) Hospital Course Patient is a 48-year-old male with past medical history significant for obesity, tobacco use uncontrolled type 2 diabetes (medication regimen includes Lantus, glimepiride and Jardiance), hypertension, hyperlipidemia, neuropathy , Chronic kidney disease who was admitted to surgical intensive care unit on 04/16/2024 with 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 ID is following, treated with linezolid and meropenem , Wound culture positive for group beta-hemolytic strep and Serratia marcescens, staph epi, lactobacillus gasseri, and enterococcus. ID Recommending a course of cefdinir Zyvox and minocycline on discharge. Wound care following, recommending local wound treatments. Patient developed A-fib with RVR for which cardiology is involved. Echocardiogram showed EF systolic function severely reduced with an EF of 25 to 30%. Diastolic dysfunction present. Was treated with 1 week of amiodarone, continued on metoprolol and apixaban. Recommending ischemic evaluation once acute complaints are resolved, follow-up with cardiology outpatient. Nephrology involved and recommending diuretics. Patient was skilled by physical and Occupational Therapy, patient is agreeable to SNF awaiting pre- CERT. Patient did undergo additional I&D on [address] Morales. Continue with woundcare, follow-up outpatient with wound clinic. Follow-up with ID in 2 to 3 weeks. Follow-up with urology. Follow-up with GI for repeat colonoscopy in 6 weeks. Send CBC/CMP to urology and ID in 1 week. Patient will be discharged to SNF for continued care. Discussed with Dr. Conti Allergies ampicillin Unknown penicillin Unknown Consults Consult to Physician - Ordered -- 04/16/24 1:33:00 EDT, KAYLEEN BERNAL MD, Urgent, fourniers gangrene Consult to Physician - Ordered -- 04/16/24 2:16:00 EDT, WILLA RODARTE MD, Urgent, fourniers gangrene Consult to Physician - Ordered -- 04/16/24 2:18:00 EDT, DAMARI FATIMA MD, Routine, GENE on CKD Consult to Physician - Ordered -- 04/19/24 9:57:00 EDT, CIARA VIGIL MD, Routine, necrotizing faciitis Consult to Physician (Physician Consult) - Ordered -- 04/22/24 11:26:00 EDT, JORDAN MONAE MD, Routine, Rapid atrial tachycardia Consult to Physician - Ordered -- 04/24/24 8:31:00 EDT, FRANCESCA PARNELL MD, Routine, Fourniers gangrene, wound Consult to Physician - Ordered -- 04/25/24 10:27:00 EDT, JERAMY MONAE MD, Routine, hematachezia Imaging Results and Diagnostics XR Chest 1 View Result Date: April 28, 2024 Verified By: CÉSAR SOLIS, ANTONIO Harris CLINICAL STATEMENT: IMPRESSION: 1. Improving bilateral lung infiltrates.2. Small bilateral pleural effusions. XR Chest 1 View Result Date: April 27, 2024 Verified By: KELVIN DOLL DO CLINICAL STATEMENT: IMPRESSION: Congestive failure, progressed when compared to prior examination. CT Abdomen/Pelvis w/o Contrast Result Date: April 24, 2024 Verified By: Contributor_system, [employer] CLINICAL STATEMENT: IMPRESSION: 1. Right lower lobe consolidation with moderate bilateral effusions.2. No acute intra-pathology however evaluation is limited without IV contrast3. Anterior abdominal wall surgical wound. CT Thorax w/o Contrast Result Date: April 24, 2024 Verified By: Contributor_system, [employer] CLINICAL STATEMENT: IMPRESSION: Right lower lobe consolidation with moderate bilateral effusions. Coronary ASVD. XR Chest 1 View Result Date: April 22, 2024 Verified By: MILVIA CALI MD CLINICAL STATEMENT: IMPRESSION: 1. Increased bilateral perihilar, right infrahilar and lateral right lowerlobe hazinessand indistinct pulmonary vessels. Considerations includepulmonary edema and pneumonia.2. Interval removal of a right IJ central venous catheter.. XR Chest 1 View Result Date: April 20, 2024 Verified By: ANTONIO LINDSEY MD CLINICAL STATEMENT: IMPRESSION: 1. Status post extubation and removal of enteric tube.2. Small bilateral pleural effusions with mild basilar atelectasis. XR Chest 1 View Result Date: 2024 Verified By: ISAÍAS SANTANA MD CLINICAL STATEMENT: IMPRESSION: Endotracheal tube tip approximately 5.3 cm above the elena. Other lifesupport devices as above. No significant interval change from the prior study. I have personally reviewed the imagesof this examination and agree with theresident's findings and interpretation. XR Chest 1 View Result Date: 2024 Verified By: ANTONIO LINDSEY MD CLINICAL STATEMENT: IMPRESSION: No significant interval change. I have personally reviewed the images of this examination, and agree with theresident's findings and interpretation. XR Chest 1 View Result Date: April 16, 2024 Verified By: ANTONIO LINDSEY MD CLINICAL STATEMENT: IMPRESSION: Interval placement of a right-sided central venous catheter with tipprojecting over themid to lower SVC. Other support devices as above. Otherwise no significant interval change. Preliminary Report was Dictated by a Resident XR Enteric Tube Placement Result Date: April 16, 2024 Verified By: ANTONIO LINDSEY MD CLINICAL STATEMENT: IMPRESSION: 1. Endotracheal tube and enteric tube are in satisfactory position.2. Increasing left basilar atelectasis. XR Chest 1 View Result Date: April 16, 2024 Verified By: ANTONIO LINDSEY MD CLINICAL STATEMENT: IMPRESSION: 1. Endotracheal tube and enteric tube are in satisfactory position.2. Increasing left basilar atelectasis. Physical Exam Vitals and Measurements T: 36.9 C (Oral) TMIN: 36.2 C (Temporal Artery) TMAX: 37.51 C HR: 80 RR: 16 BP: 120/72 SpO2: 91% Weight Dosing Weight: 125 kg (04/22/24) Constitutional: Patient is alert and oriented x3. In no acute distress. ENT: hearing grossly intact, mucous membranes moist, Respiratory: Breathing nonlabored, lungs clear to auscultation bilaterally. Heart: Regular rate and rhythm. S1 S2 heard. GI: Bowel sounds x4 quadrants. No rebound tenderness or guarding. Neuro: speech clear. MIRZA equally. memory intact Skin: no rashes or lesions noted. skin warm, dry Code Status Code Status - Ordered -- 04/16/24 1:27:00 EDT, Full Code, Constant Order Admission Date 04-16-2024 Discharge Date 05-06-2024 Medications New Prescription acetaminophen (Tylenol 8 Hour 650 mg oral tablet, extended release)2 tab(s) by mouth every 8 hours as needed as needed for pain for 10 Days. Refills: 0. losartan (losartan 25 mg oral tablet)1 tab(s) by mouth once a day. sodium hypochlorite topical (Dakins Half Strength 0.25% topical solution)1 application Topical two (2) times a day. Unchanged amLODIPine (amLODIPine 10 mg oral tablet)1 tab(s) by mouth once a day. Refills: 0. apixaban (Eliquis 5 mg oral tablet)1 tab(s) by mouth two (2) times a day. bacitracin topical (bacitracin topical ointment)1 application Topical two (2) times a day. bumetanide (Bumex)1 Milligram by mouth two (2) times a day. cefdinir (cefdinir 300 mg oral capsule)1 cap by mouth two (2) times a day. emollients, topical1 application Topical two (2) times a day. empagliflozin (Jardiance 10 mg oral tablet)1 tab(s) by mouth once a day (in the morning). gabapentin (gabapentin 100 mg oral capsule)3 cap by mouth once a day. glimepiride (glimepiride 4 mg oral tablet)2 tab(s) by mouth with breakfast. insulin glargine (Lantus Solostar Pen 100 units/mL 3 mL Pen)30 unit(s) Subcutaneous daily at bedtime. Refills: 0. insulin isophane (NPH)8 unit(s) Subcutaneous three (3) times a day before meals. lidocaine topical (lidocaine 4% patch)Transdermal every 24 hours. linezolid (Zyvox 600 mg oral tablet)1 tab(s) by mouth two (2) times a day. metoprolol (Toprol-XL 100 mg oral tablet, extended release)1 tab(s) by mouth two (2) times a day. minocycline (minocycline 100 mg oral capsule)1 cap by mouth every 12 hours. omeprazole (omeprazole 40 mg oral delayed release capsule)1 cap by mouth two (2) times a day. rosuvastatin (rosuvastatin 10 mg oral tablet)1 tab(s) once a day. AM. Discontinued amiodarone (amiodarone 200 mg oral tablet)2 tab(s) by mouth once a day with a meal. lisinopril (lisinopril 20 mg oral tablet)1 tab(s) by mouth once a day. Follow Up Follow Up with Omari Wong - [facility] - [phone] When:Within 1-2 days Follow Up with TELMA GUEVARA MD Where:[address] [facility] [place] [address]- Additional Information: 6 weeks for repeat colonoscopy Follow Up with BERNIE HERNÁNDEZ MD, [facility] When:Within 1-2 days Where:[address] [facility] [address] [place] [address]- [phone] Follow Up with SON STEEL BA, MD, Infectious Disease, Infect[facility] Disease [facility] When:Within 1-2 days Where:[facility] [id number] [place] [address]- [phone] Additional Information: 2-3 weeks Follow Up with GLENN THAYER MD When:Within 5 to 7 days Where:[address] [facility] [address] [facility] [place] [address]- [phone] Additional Information: for ischemic evaluation Follow Up with [facility] When:Within 1-2 days Where:[address] [place] [phone]- Additional Information: Please follow up with Dr. Parnell in 2 weeks in the wound center Follow Up with [facility] When:Within 1-2 days Where:[address] [place] [phone]- Additional Information: Call for follow up visit for wound care management Follow Up with PHOEBE ADAM When:Within 1-2 days Where:[address] [place] [address]- Business (1) Follow Up Appointments Transfer of Care OT - Ordered -- Reason for therapy: debility, 05/06/24 11:34:00 EDT Transfer of Care PT - Ordered -- Reason for therapy: debility, 05/06/24 11:34:00 EDT Follow Up Labs/Studies Discharge Labs Discharge Outpatient Labwork - Ordered -- CBC, CMP, scrotal infection, follow-up within: 1 week, Results Notify to: SON STEEL BA, MD Results Notify to: Dr. Hernández, 05/06/24 11:40:00 EDT Transfer of Care Labwork - Ordered -- bmp, CKD, follow-up within: 1-3 days, Results Notify to: PHOEBE ADAM APRN- PRODUCT ENGINEER, 05/06/24 11:34:00 EDT Discharge Studies No Follow-up Studies Discharge Diet Transfer of Care Diet - Ordered -- Type of Diet: Regular Diet, 05/06/24 11:34:00 EDT Discharge Activity Transfer of Care Activity - Ordered -- Activity As Tolerated, 05/06/24 11:34:00 EDT Condition on Discharge stable Discharge Disposition [facility] Jonn Information Provided To patient Time Spent A total of 35 minutes reviewing patient's diagnostic, labs/tests, seeing and examining the patient and documenting in the medical record, please see assessment for further details. Digitally Signed by MY DUTTON APRN-QUAHOGGER on 05/06/2024 12:[address] [id number] Note Discharge Instructions Thank you for allowing [facility] to assist you with your healthcare needs. The following is importantdischarge information regarding your hospital visit. Your Care Team PHOEBE ADAM APRN-PRODUCT ENGINEER Your Diagnosis A-fib Acute respiratory failure GENE (acute kidney injury) Anemia Diabetes mellitus Claire gangrene Obesity Septic shock What to do next Follow Up Appointments Follow Up with Omari Wong - [facility] - [phone] When:Within 1-2 days Follow Up with TELMA GUEVARA MD Where:[address] [facility] [place] [address]- Additional Information: 6 weeks for repeat colonoscopy Follow Up with BERNIE HERNÁNDEZ MD, [facility] When:Within 1-2 days Where:[address] [facility] [address] [place] [address]- [phone] Follow Up with SON STEEL BA, MD, Infectious Disease, Infectious Disease Group When:Within 1-2 days Where:[facility] [place] [address] [place] [address]- [phone] Additional Information: 2-3 weeks Follow Up with GLENN THAYER MD When:Within 5 to 7 days Where:[address] [facility] [address] [facility] [place] [address]- [phone] Additional Information: for ischemic evaluation Follow Up with [facility] When:Within 1-2 days Where:[address] [place] [phone]- Additional Information: Please follow up with Dr. Parnell in 2 weeks in the wound center Follow Up with [facility] When:Within 1-2 days Where:[address] [place] [phone]- Additional Information: Call for follow up visit for wound care management Follow Up with PHOEBE ADAM When:Within 1-2 days Where:[address] [place] [address]- Business (1) The Following Activity and Diet Have Been Ordered for You Transfer of Care Activity - Ordered -- Activity As Tolerated, 05/06/24 11:34:00 EDT Transfer of Care Diet - Ordered -- Type of Diet: Regular Diet, 05/06/24 11:34:00 EDT The Following Equipment Has Been Ordered for You Discharge Home Equipment Discharge Blood Glucose Monitoring - Ordered -- When to Test: Before each meal and at bedtime Transfer of Care Urinary Catheter Insertion/Care - Ordered -- Indwelling, Routine care per facility guidelines., 05/06/24 11:34:26 EDT Transfer of Care Wound Care - Ordered -- *Other, specify in special instructions, Change Dressing: BID, scrotum, ABD, dakins solution with kerlex, 05/06/24 11:34:00 EDT The Following Treatments Have Been Ordered for You Discharge Labs Discharge Outpatient Labwork - Ordered -- CBC, CMP, scrotal infection, follow-up within: 1 week, Results Notify to: SON STEEL BA, MD Results Notify to: Dr. Hernández, 05/06/24 11:40:00 EDT Transfer of Care Labwork - Ordered -- bmp, CKD, follow-up within: 1-3 days, Results Notify to: PHOEBE ADAM APRN- PRODUCT ENGINEER, 05/06/24 11:34:00 EDT Discharge Radiology No qualifying data available. Other Therapies Discharge Blood Glucose Monitoring - Ordered -- When to Test: Before each meal and at bedtime Transfer of Care OT - Ordered -- Reason for therapy: debility, 05/06/24 11:34:00 EDT Transfer of Care PT - Ordered -- Reason for therapy: debility, 05/06/24 11:34:00 EDT Post Acute Orders Transfer of Care Admission Level of Care - Ordered -- Level of Care SNF, 05/06/24 11:34:26 EDT Transfer of Care Code Status - Ordered -- Full Code, Constant Order Transfer of Care Labwork - Ordered -- bmp, CKD, follow-up within: 1-3 days, Results Notify to: PHOEBE ADAM PRODUCT ENGINEER, 05/06/24 11:34:00 EDT Transfer of Care Orders Electronically Signed By - Ordered -- 05/06/24 11:34:00 EDT, VIANCA CONTI MD Transfer of Care Prognosis - Ordered -- Fair, Patient Aware: Yes Transfer of Care Rehab Potential - Ordered -- Rehab potential fair, 05/06/24 11:34:26 EDT Transfer of Care Urinary Catheter Insertion/Care - Ordered -- Indwelling, Routine care per facility guidelines., 05/06/24 11:34:26 EDT Someone Will Contact You Regarding These Home Health Referrals No home referrals have been ordered for you. No one will call you. Allergies ampicillin Unknown penicillin Unknown Medications Please ask your primary doctor or pharmacist before taking any other medication not listed, including over the counter drugs, herbal medications, vitamins and or supplements as they may interact withyour home medications. What How Much When Instructions Last Dose New acetaminophen (Tylenol 8 Hour 650 mg oral tablet, extended release) 2 tab(s) by mouth Every 8 hours as needed for as needed for pain Duration: 10 Days New losartan (losartan 25 mg oral tablet) 1 tab(s) by mouth Once a day New sodium hypochlorite topical (Dakins Half Strength 0.25% topical solution) 1 application Topical Two (2) times a day Unchanged amLODIPine (amLODIPine 10 mg oral tablet) 1 tab(s) by mouth Once a day Unchanged apixaban (Eliquis 5 mg oral tablet) 1 tab(s) by mouth Two (2) times a day Unchanged bacitracin topical (bacitracin topical ointment) 1 application Topical Two (2) times a day Unchanged bumetanide (Bumex) 1 Milligram by mouth Two (2) times a day Unchanged cefdinir (cefdinir 300 mg oral capsule) 1 cap by mouth Two (2) times a day Unchanged emollients, topical 1 application Topical Two (2) times a day Unchanged empagliflozin (Jardiance 10 mg oral tablet) 1 tab(s) by mouth Once a day (in the morning) Unchanged gabapentin (gabapentin 100 mg oral capsule) 3 cap by mouth Once a day Unchanged glimepiride (glimepiride 4 mg oral tablet) 2 tab(s) by mouth With breakfast Unchanged insulin glargine (Lantus Solostar Pen 100 units/ mL 3 mL Pen) 30 unit(s) Subcutaneous Daily at bedtime Unchanged insulin isophane (NPH) 8 unit(s) Subcutaneous Three (3) times a day before meals Unchanged lidocaine topical (lidocaine 4% patch) Transdermal Every 24 hours Unchanged linezolid (Zyvox 600 mg oral tablet) 1 tab(s) by mouth Two (2) times a day Unchanged metoprolol (Toprol-XL 100 mg oral tablet, extended release) 1 tab(s) by mouth Two (2) times a day Unchanged minocycline (minocycline 100 mg oral capsule) 1 cap by mouth Every 12 hours Unchanged omeprazole (omeprazole 40 mg oral delayed release capsule) 1 cap by mouth Two (2) times a day Unchanged rosuvastatin (rosuvastatin 10 mg oral tablet) 1 tab(s) Once a day AM What How Much When Comments Stop Taking amiodarone (amiodarone 200 mg oral tablet) 2 tab(s) by mouth Once a day with a meal Stop Taking lisinopril (lisinopril 20 mg oral tablet) 1 tab(s) by mouth Once a day Please take this list to your next doctor s visit. Bring all medications you take, including over the counter medications, herbals and other supplements with you to your doctor s visit. Patients and families are reminded to discard old lists and to update any records with all medication providers or retail pharmacies. Additional Information VACCINATE! IT SAVES LIVES! Members of the community who have not yet received the COVID-19 vaccine and would like to receive it can visit one of [facility] vaccine clinics. There are many vaccine clinic locations within the [facility]. For locations and available times, please visit [email or web address] It is important to note that some COVID mobile vaccine clinics are held outdoors and may be canceled in rainy or stormy conditions. To learn more about pediatric vaccinations (ages 5-11), we invite you to visit the [facility] webpage. [email or web address] learn more about the COVID-19 vaccine, we invite you to visit the CDC website for a list of frequently asked questions.https://www.cdc.gov/coronavirus/2019-ncov/vaccines/faq.html [facility] Patient Portal Access Instructions: Stay connected with your healthcare team and access your personal medical information anytime with the [facility] Patient Portal. Please follow the directions below to create your [facility] account: 1.Access the email account you provided upon registration to the hospital/physician office.2.Look for an invitation email from [facility].3.Open the email and access the invitation link: AcceptInvitation to [facility].4.Fill in the required nguyen to create your account. To access your account, visit [email or web address]. Click the blue button labeled Access Patient Portal and then log in with the username and password that you created in the steps above. You will be able to view your test results, lab results, a summary of your visits, upcoming appointments and more. There is also a convenient messaging option where you can send secure messages to your p rovider. In addition, you will have the ability to download any documents or summaries to your computer and/or send the information securely to a physician. Remember that your healthcare information is confidential, so carefully consider who you will allowto register on the [facility] Patient Portal for access to your information. You can also access the [facility] Patient Portal on the [facility] artemio. Simply click on Patient Portal and then log into your account. If you would like to receive a full copy of your medical records, please contact the [facility] Medical Records Department by calling [phone], Sunday through Sunday between 8 a.m. and 4:30 p.m. HOW TO SAFELY DISPOSE OF PRESCRIPTION MEDICATIONS Please use one of the following methods to safely dispose of your unused medications. 1.Use a drug disposal kit: the drug disposal pouch allows you to safely discard your old and unuseddrugs. Ask your nurse to give you one when you are discharged.2.Visit a local take-back location: Many local pharmacies and police departments have programs that collect old and unwanted prescriptiondrugs. Call your local pharmacy or go to http://bit.ly/8H3Ur6p to find one close to you.3.Make use of household items: Use cat litter or old coffee grounds to dispose medications if other options arenot available. Mix your drugs with these household products, seal them in an airtight container andthrow it into the garbage. Call [facility]: [phone] to be sure your drugs can be disposed of in this way. Some medicines may require a different approach.4.Never flush your medications down the toilet. IF YOU HAVE BEEN PRESCRIBED AN OPIOID FOR PAIN If you have been prescribed an opioid (such as hydrocodone, oxycodone or morphine), it is critical to understand the possible side effects and risks of opioid pain medications. Even when taken as directed, opioids can have several side effects including: Tolerance, meaning you might need to take more of a medication for the same pain relief. Nausea, vomiting and/or constipation. Sleepiness, dizziness, dry mouth, confusion, depression or itching. Physical dependence, meaning you have withdrawal symptoms when a medication is stopped, can develop within a few days. KNOW YOUR RESPONSIBILITIES It is important to know exactly how much and how often to take the opioid pain medications you are prescribed. Never take opioids in higher amounts or more often than prescribed. Do not combine opioids with alcohol or other drugs that cause drowsiness, such as benzodiazepines, also known as benzos, including diazepam and alprazolam, muscle relaxants or sleep aids. Never sell or share prescription opioids. This is illegal. Store opioids in a secure place and out of reach of others (including children, family, friends and visitors). The last page of this document has been signed and retained as a CHART COPY. Signatures Patient Education Materials Medication Leaflets My discharge plan and instructions have been reviewed and explained to me and I,JOVANI GURINDER Raza understand my current condition and have read and understand these discharge instructions. I have received a written copy of the plan/instructions. If I have questions, I am aware that I should contact my doctor. Patient/Care Management Associate Signature: Date/Time: Relationship to Patient: Witness Name/Signature: [id number] Anesthesiology Consult note Patient: JOVANI GURINDER Raza Age: 49 years Sex: Male : 1975 Associated Diagnoses: None Author: TU JHA MD Postoperative Information Post Operative Info: Post op day: Post Anesthesia Care Unit. Patient location: PACU. Assessment Postanesthesia assessment Vitals: Vital signs from flowsheet : Vital Signs 05/05/2024 17:32 EDT Apical Heart Rate 80 bpm 05/05/2024 16:31 EDT Temperature Oral 37.1 DegC Peripheral Pulse Rate 84 bpm Respiratory Rate 14 br/min Systolic Blood Pressure Non-Invasive 135 mmHg Diastolic Blood Pressure Non-Invasive 80 mmHg Blood Pressure Method Automatic Blood Pressure Location Right arm Blood Pressure Cuff Size Medium Reason For Taking VItal Signs Routine 05/05/2024 16:08 EDT Heart Rate Monitored 81 bpm Respiratory Rate 16 br/min Systolic Blood Pressure Non-Invasive 114 mmHg Diastolic Blood Pressure Non-Invasive 57 mmHg LOW Mean Arterial Pressure (NBP) 69 mmHg 05/05/2024 15:53 EDT Heart Rate Monitored 80 bpm Respiratory Rate 14 br/min Systolic Blood Pressure Non-Invasive 117 mmHg Diastolic Blood Pressure Non-Invasive 71 mmHg Mean Arterial Pressure (NBP) 86 mmHg 05/05/2024 15:38 EDT Heart Rate Monitored 79 bpm Respiratory Rate 14 br/min Systolic Blood Pressure Non-Invasive 111 mmHg Diastolic Blood Pressure Non-Invasive 68 mmHg Mean Arterial Pressure (NBP) 81 mmHg 05/05/2024 15:27 EDT Respiratory Rate 16 br/min 05/05/2024 15:23 EDT Heart Rate Monitored 77 bpm Respiratory Rate 14 br/min Systolic Blood Pressure Non-Invasive 125 mmHg Diastolic Blood Pressure Non-Invasive 76 mmHg Mean Arterial Pressure (NBP) 91 mmHg 05/05/2024 15:08 EDT Temperature Temporal Artery 36.2 DegC Heart Rate Monitored 77 bpm Respiratory Rate 12 br/min LOW Systolic Blood Pressure Non-Invasive 130 mmHg Diastolic Blood Pressure Non-Invasive 75 mmHg Mean Arterial Pressure (NBP) 91 mmHg 05/05/2024 15:00 EDT Heart Rate Monitored 72 bpm bpm Respiratory Rate - Anes 14 br/min br/min Systolic Blood Pressure Non-Invasive 114 mmHg mmHg Diastolic Blood Pressure Non-Invasive 73 mmHg mmHg 05/05/2024 14:57 EDT Systolic Blood Pressure Non-Invasive 102 mmHg mmHg Diastolic Blood Pressure Non-Invasive 70 mmHg mmHg 05/05/2024 14:55 EDT Heart Rate Monitored 70 bpm bpm Respiratory Rate - Anes 14 br/min br/min 05/05/2024 14:54 EDT Systolic Blood Pressure Non-Invasive 103 mmHg mmHg Diastolic Blood Pressure Non-Invasive 64 mmHg mmHg 05/05/2024 14:51 EDT Systolic Blood Pressure Non-Invasive 101 mmHg mmHg Diastolic Blood Pressure Non-Invasive 68 mmHg mmHg 05/05/2024 14:50 EDT Temperature (Route Not Specified) 37.32 DegC DegC Heart Rate Monitored 69 bpm bpm Respiratory Rate - Anes 16 br/min br/min 05/05/2024 14:48 EDT Systolic Blood Pressure Non-Invasive 108 mmHg mmHg Diastolic Blood Pressure Non-Invasive 66 mmHg mmHg 05/05/2024 14:45 EDT Temperature (Route Not Specified) 37.3 DegC DegC Heart Rate Monitored 72 bpm bpm Respiratory Rate - Anes 17 br/min br/min Systolic Blood Pressure Non-Invasive 115 mmHg mmHg Diastolic Blood Pressure Non-Invasive 74 mmHg mmHg 05/05/2024 14:42 EDT Systolic Blood Pressure Non-Invasive 123 mmHg mmHg Diastolic Blood Pressure Non-Invasive 73 mmHg mmHg 05/05/2024 14:40 EDT Temperature (Route Not Specified) 37.31 DegC DegC Heart Rate Monitored 72 bpm bpm Respiratory Rate - Anes 21 br/min br/min 05/05/2024 14:39 EDT Systolic Blood Pressure Non-Invasive 114 mmHg mmHg Diastolic Blood Pressure Non-Invasive 79 mmHg mmHg 05/05/2024 14:36 EDT Systolic Blood Pressure Non-Invasive 103 mmHg mmHg Diastolic Blood Pressure Non-Invasive 69 mmHg mmHg 05/05/2024 14:35 EDT Temperature (Route Not Specified) 37.33 DegC DegC Heart Rate Monitored 72 bpm bpm Respiratory Rate - Anes 19 br/min br/min 05/05/2024 14:33 EDT Systolic Blood Pressure Non-Invasive 106 mmHg mmHg Diastolic Blood Pressure Non-Invasive 67 mmHg mmHg 05/05/2024 14:30 EDT Temperature (Route Not Specified) 37.37 DegC DegC Heart Rate Monitored 72 bpm bpm Respiratory Rate - Anes 21 br/min br/min Systolic Blood Pressure Non-Invasive 103 mmHg mmHg Diastolic Blood Pressure Non-Invasive 65 mmHg mmHg 05/05/2024 14:27 EDT Systolic Blood Pressure Non-Invasive 96 mmHg mmHg Diastolic Blood Pressure Non-Invasive 65 mmHg mmHg 05/05/2024 14:25 EDT Temperature (Route Not Specified) 37.39 DegC DegC Heart Rate Monitored 70 bpm bpm Respiratory Rate - Anes 18 br/min br/min 05/05/2024 14:24 EDT Systolic Blood Pressure Non-Invasive 96 mmHg mmHg Diastolic Blood Pressure Non-Invasive 61 mmHg mmHg 05/05/2024 14:21 EDT Systolic Blood Pressure Non-Invasive 98 mmHg mmHg Diastolic Blood Pressure Non-Invasive 64 mmHg mmHg 05/05/2024 14:20 EDT Temperature (Route Not Specified) 37.41 DegC DegC Heart Rate Monitored 71 bpm bpm Respiratory Rate - Anes 18 br/min br/min 05/05/2024 14:18 EDT Systolic Blood Pressure Non-Invasive 98 mmHg mmHg Diastolic Blood Pressure Non-Invasive 69 mmHg mmHg 05/05/2024 14:15 EDT Temperature (Route Not Specified) 37.44 DegC DegC Heart Rate Monitored 71 bpm bpm Respiratory Rate - Anes 18 br/min br/min Systolic Blood Pressure Non-Invasive 93 mmHg mmHg Diastolic Blood Pressure Non-Invasive 62 mmHg mmHg 05/05/2024 14:12 EDT Systolic Blood Pressure Non-Invasive 101 mmHg mmHg Diastolic Blood Pressure Non-Invasive 64 mmHg mmHg 05/05/2024 14:10 EDT Temperature (Route Not Specified) 37.47 DegC DegC Heart Rate Monitored 72 bpm bpm Respiratory Rate - Anes 17 br/min br/min 05/05/2024 14:09 EDT Systolic Blood Pressure Non-Invasive 107 mmHg mmHg Diastolic Blood Pressure Non-Invasive 66 mmHg mmHg 05/05/2024 14:06 EDT Systolic Blood Pressure Non-Invasive 98 mmHg mmHg Diastolic Blood Pressure Non-Invasive 66 mmHg mmHg 05/05/2024 14:05 EDT Temperature (Route Not Specified) 37.51 DegC DegC Heart Rate Monitored 71 bpm bpm Respiratory Rate - Anes 15 br/min br/min 05/05/2024 14:03 EDT Systolic Blood Pressure Non-Invasive 91 mmHg mmHg Diastolic Blood Pressure Non-Invasive 56 mmHg mmHg 05/05/2024 14:00 EDT Temperature (Route Not Specified) 37.5 DegC DegC Heart Rate Monitored 70 bpm bpm Respiratory Rate - Anes 14 br/min br/min Systolic Blood Pressure Non-Invasive 94 mmHg mmHg Diastolic Blood Pressure Non-Invasive 60 mmHg mmHg 05/05/2024 13:57 EDT Systolic Blood Pressure Non-Invasive 93 mmHg mmHg Diastolic Blood Pressure Non-Invasive 58 mmHg mmHg 05/05/2024 13:55 EDT Temperature (Route Not Specified) 37.42 DegC DegC Heart Rate Monitored 71 bpm bpm Respiratory Rate - Anes 18 br/min br/min 05/05/2024 13:54 EDT Systolic Blood Pressure Non-Invasive 96 mmHg mmHg Diastolic Blood Pressure Non-Invasive 60 mmHg mmHg 05/05/2024 13:51 EDT Systolic Blood Pressure Non-Invasive 98 mmHg mmHg Diastolic Blood Pressure Non-Invasive 60 mmHg mmHg 05/05/2024 13:50 EDT Temperature (Route Not Specified) 37.2 DegC DegC Heart Rate Monitored 71 bpm bpm Respiratory Rate - Anes 16 br/min br/min 05/05/2024 13:48 EDT Systolic Blood Pressure Non-Invasive 103 mmHg mmHg Diastolic Blood Pressure Non-Invasive 66 mmHg mmHg 05/05/2024 13:45 EDT Heart Rate Monitored 74 bpm bpm Respiratory Rate - Anes 19 br/min br/min Systolic Blood Pressure Non-Invasive 99 mmHg mmHg Diastolic Blood Pressure Non-Invasive 70 mmHg mmHg 05/05/2024 13:42 EDT Systolic Blood Pressure Non-Invasive 129 mmHg mmHg Diastolic Blood Pressure Non-Invasive 82 mmHg mmHg 05/05/2024 13:40 EDT Heart Rate Monitored 84 bpm bpm Respiratory Rate - Anes 0 br/min br/min 05/05/2024 13:39 EDT Systolic Blood Pressure Non-Invasive 152 mmHg mmHg Diastolic Blood Pressure Non-Invasive 89 mmHg mmHg 05/05/2024 13:36 EDT Systolic Blood Pressure Non-Invasive 144 mmHg mmHg Diastolic Blood Pressure Non-Invasive 79 mmHg mmHg 05/05/2024 13:35 EDT Respiratory Rate - Anes 0 br/min br/min 05/05/2024 13:30 EDT Respiratory Rate - Anes 0 br/min br/min 05/05/2024 8:49 EDT Apical Heart Rate 90 bpm 05/05/2024 6:54 EDT Temperature Oral 36.8 DegC Peripheral Pulse Rate 86 bpm Respiratory Rate 16 br/min Systolic Blood Pressure Non-Invasive 147 mmHg HI Diastolic Blood Pressure Non-Invasive 84 mmHg Blood Pressure Method Automatic Blood Pressure Location Right arm Blood Pressure Cuff Size Medium Reason For Taking VItal Signs Routine 05/05/2024 3:27 EDT Temperature Oral 36.8 DegC Heart Rate Monitored 80 bpm Respiratory Rate 16 br/min Systolic Blood Pressure Non-Invasive 139 mmHg Diastolic Blood Pressure Non-Invasive 78 mmHg 05/05/2024 3:12 EDT Respiratory Rate 16 br/min 05/05/2024 0:27 EDT Temperature Oral 36.7 DegC Heart Rate Monitored 84 bpm Respiratory Rate 16 br/min Systolic Blood Pressure Non-Invasive 135 mmHg Diastolic Blood Pressure Non-Invasive 76 mmHg 05/05/2024 0:00 EDT Respiratory Rate 16 br/min 05/04/2024 23:00 EDT Respiratory Rate 16 br/min 05/04/2024 21:35 EDT Respiratory Rate 16 br/min 05/04/2024 19:53 EDT Temperature Oral 36.8 DegC Peripheral Pulse Rate 85 bpm Respiratory Rate 16 br/min Systolic Blood Pressure Non-Invasive 155 mmHg HI Diastolic Blood Pressure Non-Invasive 86 mmHg Blood Pressure Method Automatic Blood Pressure Location Right arm Blood Pressure Cuff Size Medium Reason For Taking VItal Signs Routine 05/04/2024 19:48 EDT Reason For Taking VItal Signs Routine 05/04/2024 17:10 EDT Apical Heart Rate 88 bpm 05/04/2024 16:37 EDT Temperature Oral 36.8 DegC Peripheral Pulse Rate 87 bpm Respiratory Rate 16 br/min Systolic Blood Pressure Non-Invasive 142 mmHg HI Diastolic Blood Pressure Non-Invasive 87 mmHg Blood Pressure Method Automatic Blood Pressure Location Right arm Blood Pressure Cuff Size Medium Reason For Taking VItal Signs Routine 05/04/2024 11:28 EDT Temperature Oral 36.9 DegC Peripheral Pulse Rate 90 bpm Respiratory Rate 16 br/min Systolic Blood Pressure Non-Invasive 151 mmHg HI Diastolic Blood Pressure Non-Invasive 87 mmHg Reason For Taking VItal Signs Routine 05/04/2024 8:43 EDT Apical Heart Rate 88 bpm Reason For Taking VItal Signs Routine 05/04/2024 7:02 EDT Temperature Oral 36.7 DegC Peripheral Pulse Rate 80 bpm Respiratory Rate 16 br/min Systolic Blood Pressure Non-Invasive 156 mmHg HI Diastolic Blood Pressure Non-Invasive 90 mmHg HI Blood Pressure Method Automatic Blood Pressure Location Right arm Blood Pressure Cuff Size Medium 05/04/2024 5:45 EDT Respiratory Rate 16 br/min 05/04/2024 4:30 EDT Respiratory Rate 16 br/min 05/04/2024 2:10 EDT Respiratory Rate 16 br/min , Oxygen Therapy : Oxygen Therapy & Oxygenation Information 05/05/2024 16:46 EDT Oxygen Therapy Nasal cannula 0L-6L Oxygen Flow Rate 3 05/05/2024 16:31 EDT Oxygen Therapy Nasal cannula 0L-6L Oxygen Saturation 92 % LOW Oxygen Flow Rate 3 05/05/2024 16:08 EDT Oxygen Therapy Nasal cannula 0L-6L Oxygen Saturation 95 % Oxygen Flow Rate 3 05/05/2024 15:53 EDT Oxygen Therapy Nasal cannula 0L-6L Oxygen Saturation 95 % Oxygen Flow Rate 3 05/05/2024 15:38 EDT Oxygen Therapy Nasal cannula 0L-6L Oxygen Saturation 87 % Oxygen Flow Rate 3 05/05/2024 15:27 EDT Oxygen Therapy Nasal cannula 0L-6L Oxygen Saturation 99 % Oxygen Flow Rate 3 05/05/2024 15:23 EDT Oxygen Therapy Simple mask Oxygen Saturation 99 % Oxygen Flow Rate 8 05/05/2024 15:08 EDT Oxygen Therapy Simple mask Oxygen Saturation 98 % Oxygen Flow Rate 8 05/05/2024 15:00 EDT Oxygen Saturation 100 % % 05/05/2024 14:55 EDT Oxygen Saturation 95 % % 05/05/2024 14:50 EDT Oxygen Saturation 100 % % 05/05/2024 14:45 EDT Oxygen Saturation 100 % % 05/05/2024 14:40 EDT Oxygen Saturation 100 % % 05/05/2024 14:35 EDT Oxygen Saturation 100 % % 05/05/2024 14:30 EDT Oxygen Saturation 100 % % 05/05/2024 14:25 EDT Oxygen Saturation 100 % % 05/05/2024 14:20 EDT Oxygen Saturation 100 % % 05/05/2024 14:15 EDT Oxygen Saturation 100 % % 05/05/2024 14:10 EDT Oxygen Saturation 100 % % 05/05/2024 14:05 EDT Oxygen Saturation 100 % % 05/05/2024 14:00 EDT Oxygen Saturation 100 % % 05/05/2024 13:55 EDT Oxygen Saturation 100 % % 05/05/2024 13:50 EDT Oxygen Saturation 100 % % 05/05/2024 13:45 EDT Oxygen Saturation 100 % % 05/05/2024 13:40 EDT Oxygen Saturation 100 % % 05/05/2024 13:35 EDT Oxygen Saturation 93 % % 05/05/2024 7:40 EDT Oxygen Therapy Room air 05/05/2024 6:54 EDT Oxygen Therapy Room air Oxygen Saturation 95 % 05/05/2024 5:57 EDT Oxygen Therapy Room air Oxygen Activity Room air Oxygen Flow Rate 0 05/05/2024 3:27 EDT Oxygen Saturation 94 % 05/05/2024 3:12 EDT Oxygen Therapy Room air 05/05/2024 0:27 EDT Oxygen Saturation 95 % 05/05/2024 0:00 EDT Oxygen Therapy Room air 05/04/2024 23:00 EDT Oxygen Therapy Room air 05/04/2024 21:35 EDT Oxygen Therapy Room air 05/04/2024 19:53 EDT Oxygen Therapy Room air Oxygen Saturation 95 % 05/04/2024 16:37 EDT Oxygen Therapy Room air Oxygen Saturation 95 % 05/04/2024 11:28 EDT Oxygen Therapy Room air Oxygen Saturation 95 % 05/04/2024 8:43 EDT Oxygen Therapy Room air 05/04/2024 7:12 EDT Oxygen Therapy Room air Oxygen Activity Room air Oxygen Flow Rate 0 05/04/2024 7:02 EDT Oxygen Therapy Room air Oxygen Saturation 93 % 05/04/2024 5:45 EDT Oxygen Therapy Room air 05/04/2024 4:30 EDT Oxygen Therapy Room air 05/04/2024 2:10 EDT Oxygen Therapy Room air . Mental status: at preoperative baseline. Respiratory function: respirations are non-labored, Stable. Respiratory support: none. CV function: Stable. Cardiovascular support: none. Pain: Satisfactory. Nausea status: Satisfactory. Postoperative hydration status: within normal limits. Notes: Patient is sufficiently recovered from anesthesia to participate in the evaluation. No follow-up care needed. No complications post-anesthesia.. Digitally Signed by TU JHA MD on 05/05/2024 06:[address] [id number] Anesthesiology Consult note Patient: GURINDER HAHN Age: 49 years Sex: Male : 1975 Associated Diagnoses: None Author: LAYTON EUBANKS DO Preoperative Information Time of last food or liquid consumption: 05/05/2024 00:00:00 Anesthesia history Patient's history: negative. Family's history: negative. 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 ID is following, treated with linezolid and meropenem , Wound culture positive for group beta-hemolytic strep and Serratia marcescens, staph epi, lactobacillus gasseri, and enterococcus. Recommending a course of cefdinir Zyvox and minocycline on discharge. Wound care following, recommending localwound treatments. Patient developed A-fib with RVR for which cardiology is involved. Echocardiogramshowed EF systolic function severely reduced with an EF of 25 to 30%. Health Status Allergies: Allergic Reactions (Selected) Severity Not Documented Ampicillin- Unknown. Penicillin- Unknown., Allergies (2) ActiveSeverityReaction penicillinUnknown ampicillinUnknown Current medications: (Selected) Inpatient Medications Ordered Bumex: 1 mg, 1 tab(s), Oral, BID Calmoseptine or equivalent topical ointment: 1 artemio, Topical, BID, PRN: Diaper rash Calmoseptine or equivalent topical ointment: 1 artemio, Topical, amhs Dakins Half Strength 0.25% topical solution: 1 artemio, Topical, BID Dextrose 50% IV Push: 12.5 gram(s), 25 mL, IV Push, AsDirected, PRN: Hypoglycemia Dilaudid: 0.2 mg, 0.2 mL, IV Push, q3h, PRN: Pain, scale 4-10 DuoNeb: 3 mL, Inhalation, q2hRT, PRN: Shortness of breath or wheezing HumaLOG 100 units/mL subcutaneous solution: Give 0-10 units/dose, Subcutaneous, achs Lantus: 30 unit(s), 0.3 mL, 0 mL/hr, Subcutaneous (INT), qHS Lopressor IV: 10 mg, 10 mL, IV Push, q6h, PRN: Heart Rate 105 bpm or greater Toprol-XL: 100 mg, 1 tab(s), Oral, BID Zofran: 4 mg, 2 mL, IV Push, q6h, PRN: Nausea/Vomiting Zyvox: 600 mg, 1 tab(s), Oral, BID amLODIPine: 10 mg, 1 tab(s), Oral, qDay amiodarone: 400 mg, 2 tab(s), Oral, qDayM bacitracin topical ointment: 1 artemio, Topical, BID cefdinir: 300 mg, 1 cap(s), Oral, BID emollients, topical: 1 artemio, Topical, BID insulin NPH: 8 unit(s), 0.08 mL, Subcutaneous, TIDAC lidocaine (lidocaine Patch REMOVAL): 1 EA, Miscellaneous, q24h lidocaine 4% topical patch: 1 patch(es), Transdermal, q24h losartan: 25 mg, 1 tab(s), Oral, qDay minocycline: 100 mg, 1 cap(s), Oral, q12h omeprazole: 40 mg, 1 cap(s), Oral, BIDAC Prescriptions Prescribed Lantus Solostar Pen 100 units/mL 3 mL Pen: 30 unit(s), Subcutaneous, qHS, 15 mL, 0 Refill(s) amLODIPine 10 mg oral tablet: 10 mg, 1 tab(s), Oral, qDay, 30 tab(s), 0 Refill(s) Documented Medications Documented Bumex: 1 mg, 1 tab(s), Oral, BID, 0 Refill(s) Eliquis 5 mg oral tablet: 5 mg, 1 tab(s), Oral, BID, 0 Refill(s) Jardiance 10 mg oral tablet: 10 mg, 1 tab(s), Oral, qAM Toprol-XL 100 mg oral tablet, extended release: 100 mg, 1 tab(s), Oral, BID, 0 Refill(s) Zyvox 600 mg oral tablet: 600 mg, 1 tab(s), Oral, BID, 0 Refill(s) amiodarone 200 mg oral tablet: 400 mg, 2 tab(s), Oral, qDayM, 0 Refill(s) bacitracin topical ointment: 1 artemio, Topical, BID, 0 Refill(s) cefdinir 300 mg oral capsule: 300 mg, 1 cap(s), Oral, BID, 0 Refill(s) emollients, topical: 1 artemio, Topical, BID, 0 Refill(s) gabapentin 100 mg oral capsule: 300 mg, 3 cap(s), Oral, qDay, 0 Refill(s) glimepiride 4 mg oral tablet: 8 mg, 2 tab(s), Oral, with breakfast, 0 Refill(s) insulin isophane (NPH): 8 unit(s), Subcutaneous, TIDAC, 0 Refill(s) lidocaine 4% patch: Transdermal, q24h, 0 Refill(s) minocycline 100 mg oral capsule: 100 mg, 1 cap(s), Oral, q12h, 0 Refill(s) omeprazole 40 mg oral delayed release capsule: 40 mg, 1 cap(s), Oral, BID, 0 Refill(s) rosuvastatin 10 mg oral tablet: 10 mg, 1 tab(s), qDay, AM, 0 Refill(s), Medications (24) Active Scheduled: (18) amiodarone 200 mg tablet 400 mg 2 tab(s), Oral, qDayM amLODIPine 10 mg tablet 10 mg 1 tab(s), Oral, qDay bacitracin topical 500 units/g Ointment TUBE 1 artemio, Topical, BID bumetanide 1 mg tablet 1 mg 1 tab(s), Oral, BID cefdinir 300 mg Capsule 300 mg 1 cap(s), Oral, BID emollients (Eucerin Cream) 30gm 1 artemio, Topical, BID insulin glargine 30 unit(s) 0.3 mL, Subcutaneous (INT), qHS insulin isophane human recombinant 100 units/ml (10 mL) Inj 8 unit(s) 0.08 mL, Subcutaneous, TIDAC insulin lispro 100 units/mL Soln (3 mL) Give 0-10 units/dose, Subcutaneous, achs lidocaine patch REMOVAL 1 EA, Miscellaneous, q24h lidocaine topical 4% patch 1 patch(es), Transdermal, q24h linezolid 600 mg tablet 600 mg 1 tab(s), Oral, BID losartan 25 mg tablet 25 mg 1 tab(s), Oral, qDay menthol-zinc oxide topical ointment 4oz 1 artemio, Topical, amhs metoprolol succinate 100 mg ER tablet 100 mg 1 tab(s), Oral, BID minocycline 100 mg Capsule 100 mg 1 cap(s), Oral, q12h omeprazole [address] capsule 40 mg 1 cap(s), Oral, BIDAC sodium hypochlorite topical 0.25% Soln 1 artemio, Topical, BID Continuous: (0) PRN: (6) albuterol - ipratropium 2.5 mg-0.5 mg/3 mL Inhal Elena UD 3 mL, Inhalation, q2hRT dextrose 50% Solution Disp syringe 50 mL 12.5 gram(s) 25 mL, IV Push, AsDirected HYDROmorphone 0.5 mg/0.5 mL PF syringe 0.2 mg 0.2 mL, IV Push, q3h menthol-zinc oxide topical ointment 4oz 1 artemio, Topical, BID metoprolol 1 mg/mL (5mL) vial 10 mg 10 mL, IV Push, q6h ondansetron 2 mg/ 1 mL 2 mL INJ 4 mg 2 mL, IV Push, q6h Problem list: Medical Diabetes / SNOMED CT 866853677 / Confirmed GERD (gastroesophageal reflux disease) / SNOMED CT [id number] / Confirmed High cholesterol / SNOMED CT 87340933 / Confirmed, Active Problems (6) Diabetes GERD (gastroesophageal reflux disease) Gout High cholesterol Neuropathy Tobacco use Histories Past Medical History: Active Diabetes ([id number]) Family History: Patient was adopted. Alcohol abuse Father Diabetes Father Procedure history: Testicle ([id number]) in 1992 at 18 Years. 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 Comments: 03/08/2024 17:11 CELSO Mendez A Right foot 2nd and 3rd toes, left foot 4th toe Social History: Social & Psychosocial Habits Alcohol 4Risk Assessment: No Risk 03/08/2024 Use: Current Frequency: 1-2 times per year Substance Abuse 03/08/2024isk Assessment: Denies Substance Abuse 03/08/2024 Use: Never Tobacco 03/08/2024 Tobacco Use: 10 or more cigarettes (1/ Type: Cigarettes 4Risk Assessment: No Risk Home/Environment 03/08/2024 Living situation: Home/Independent Safe place to go: Yes Financial concerns: No Domestic Concerns None Nutrition/Health 03/08/2024 Type of diet: Regular Appetite Good Eating Difficulties None Physical Examination Vital Signs 05/05/2024 8:49 EDT Apical Heart Rate 90 bpm 05/05/2024 6:54 EDT Temperature Oral 36.8 DegC Peripheral Pulse Rate 86 bpm Respiratory Rate 16 br/min Systolic Blood Pressure Non-Invasive 147 mmHg HI Diastolic Blood Pressure Non-Invasive 84 mmHg Blood Pressure Method Automatic Blood Pressure Location Right arm Blood Pressure Cuff Size Medium Reason For Taking VItal Signs Routine 05/05/2024 3:27 EDT Temperature Oral 36.8 DegC Heart Rate Monitored 80 bpm Respiratory Rate 16 br/min Systolic Blood Pressure Non-Invasive 139 mmHg Diastolic Blood Pressure Non-Invasive 78 mmHg 05/05/2024 3:12 EDT Respiratory Rate 16 br/min 05/05/2024 0:27 EDT Temperature Oral 36.7 DegC Heart Rate Monitored 84 bpm Respiratory Rate 16 br/min Systolic Blood Pressure Non-Invasive 135 mmHg Diastolic Blood Pressure Non-Invasive 76 mmHg 05/05/2024 0:00 EDT Respiratory Rate 16 br/min 05/04/2024 23:00 EDT Respiratory Rate 16 br/min 05/04/2024 21:35 EDT Respiratory Rate 16 br/min 05/04/2024 19:53 EDT Temperature Oral 36.8 DegC Peripheral Pulse Rate 85 bpm Respiratory Rate 16 br/min Systolic Blood Pressure Non-Invasive 155 mmHg HI Diastolic Blood Pressure Non-Invasive 86 mmHg Blood Pressure Method Automatic Blood Pressure Location Right arm Blood Pressure Cuff Size Medium Reason For Taking VItal Signs Routine 05/04/2024 19:48 EDT Reason For Taking VItal Signs Routine 05/04/2024 17:10 EDT Apical Heart Rate 88 bpm 05/04/2024 16:37 EDT Temperature Oral 36.8 DegC Peripheral Pulse Rate 87 bpm Respiratory Rate 16 br/min Systolic Blood Pressure Non-Invasive 142 mmHg HI Diastolic Blood Pressure Non-Invasive 87 mmHg Blood Pressure Method Automatic Blood Pressure Location Right arm Blood Pressure Cuff Size Medium Reason For Taking VItal Signs Routine 05/04/2024 11:28 EDT Temperature Oral 36.9 DegC Peripheral Pulse Rate 90 bpm Respiratory Rate 16 br/min Systolic Blood Pressure Non-Invasive 151 mmHg HI Diastolic Blood Pressure Non-Invasive 87 mmHg Reason For Taking VItal Signs Routine 05/04/2024 8:43 EDT Apical Heart Rate 88 bpm Reason For Taking VItal Signs Routine 05/04/2024 7:02 EDT Temperature Oral 36.7 DegC Peripheral Pulse Rate 80 bpm Respiratory Rate 16 br/min Systolic Blood Pressure Non-Invasive 156 mmHg HI Diastolic Blood Pressure Non-Invasive 90 mmHg HI Blood Pressure Method Automatic Blood Pressure Location Right arm Blood Pressure Cuff Size Medium 05/04/2024 5:45 EDT Respiratory Rate 16 br/min 05/04/2024 4:30 EDT Respiratory Rate 16 br/min 05/04/2024 2:10 EDT Respiratory Rate 16 br/min Vital Signs (last 24 hrs) Last Charted Temp Oral36.8 DegC (MAY 05 06:54) Heart Rate [id number] bpm (MAY 05 08:49) SBPH 147 mmHg (MAY 05 06:54) DBP84 mmHg (MAY 05 06:54) Pain assessment: Pain Assessment 05/05/2024 10:22 EDT Primary Pain Intensity 0 Primary Pain Nonverbal Response Nods No Pain Scale Type 0-10 Pain scale 05/05/2024 7:40 EDT Primary Pain Intensity 0 Primary Pain Nonverbal Response Appears restful Pain Scale Type 0-10 Pain scale 05/05/2024 3:12 EDT Primary Pain Intensity 0 Primary Pain Nonverbal Response Appears restful Pain Scale Type PAINAD 05/05/2024 0:00 EDT Primary Pain Intensity 0 Primary Pain Nonverbal Response Nods No Pain Scale Type 0-10 Pain scale 05/04/2024 23:00 EDT Primary Pain Intensity 0 Primary Pain Nonverbal Response Nods No Pain Scale Type 0-10 Pain scale 05/04/2024 22:26 EDT Primary Pain Location Scrotum Primary Pain Intensity 5 Primary Pain Pharma Intervention Medication Primary Pain Nonverbal Response Nods Yes Pain Scale Type 0-10 Pain scale 05/04/2024 21:35 EDT Primary Pain Location Scrotum Primary Pain Intensity 3 Pain Scale Type 0-10 Pain scale 05/04/2024 16:37 EDT Primary Pain Nonverbal Response Nods No Pain Scale Type 0-10 Pain scale 05/04/2024 12:36 EDT Pain Scale Assessment 0-10 Pain scale Primary Pain Location Scrotum Primary Pain Intensity 0 05/04/2024 12:06 EDT Primary Pain Intensity 4 Pain Scale Type 0-10 Pain scale 05/04/2024 8:43 EDT Primary Pain Intensity 0 Primary Pain Nonverbal Response Nods No Pain Scale Type 0-10 Pain scale 05/04/2024 5:45 EDT Primary Pain Intensity 0 Primary Pain Nonverbal Response Appears restful Pain Scale Type PAINAD 05/04/2024 4:30 EDT Primary Pain Intensity 0 Primary Pain Nonverbal Response Appears restful Pain Scale Type PAINAD 05/04/2024 2:10 EDT Primary Pain Intensity 0 Primary Pain Nonverbal Response Appears restful Pain Scale Type PAINAD . General: Alert and oriented. Airway: Mallampati classification: III (soft palate, base of uvula visible). Dentition Evaluation: poor poor dention 6 teeth on bottom all are loose to tounge discussed in depth high risk for injury and removal during anesthetic pt aware fully accepting wishing to proceeed . Respiratory: Respirations are non-labored. Neurologic: Alert, Oriented. Review / Management Results review: Labs (Last four charted values) WBC 7.9(JOSSY 16)8.5(JOSSY 15)8.6(JOSSY 14)7.9(JOSSY 13) Hgb L 9.7(JOSSY 16)L 10.1(JOSSY 15)L 9.6(JOSSY 14)L 9.4(JOSSY 13) Hct L 29.1(JOSSY 16)L 29.9(JOSSY 15)L 29.0(JOSSY 14)L 27.8(JOSSY 13) Plt 295(JOSSY 16)334(JOSSY 15)383(JOSSY 14)430(JOSSY 13) Na 136(JOSSY 16)139(JOSSY 15)139(JOSSY 14)137(JOSSY 13) K 4.1(JOSSY 16)4.0(JOSSY 15)3.8(JOSSY 14)3.5(JOSSY 13) CO2 22(JOSSY 16)23(JOSSY 15)24(JOSSY 14)23(JOSSY 13) Cl 106(JOSSY 16)107(JOSSY 15)106(JOSSY 14)105(JOSSY 13) Cr H 2.16(JOSSY 16)H 1.97(JOSSY 15)H 2.14(JOSSY 14)H 2.18(JOSSY 13) BUN H 47.0(JOSSY 16)H 42.0(JOSSY 15)H 41.0(JOSSY 14)H 41.0(JOSSY 13) Glucose H 255(JOSSY 16)H 185(JOSSY 15)H 166(JOSSY 14)H 207(MAY 01) Mg 1.8(APR 15)L 1.4(APR 14)1.8(APR 11)1.6(APR 28) Phos 4.5(APR 12)4.7(APR 10)4.7(APR 09)5.0(APR 24) Ca L 7.2(APR 16)L 7.9(APR 15)L 7.8(APR 14)L 7.8(APR 13) PT H 15.6(APR 27)H 15.6(APR 24)H 16.4(APR 21)H 15.8(APRIL 16) INR 1.4(APR 27)1.4(APR 24)1.4(APR 21)1.4(APRIL 16) PTT H 39.0(APR 29)33.5(APR 28)H 35.7(APR 28)34.4(APR 28) Total CK 24(APR 21)48(APRIL 16) , Lab results 05/05/2024 11:13 EDT Out of Room Sent to Current Location Surgery 05/05/2024 10:58 EDT Preop Nasal Swab Povidone-Iodine 05/05/2024 10:36 EDT Hospitalist Progress Note Progress Note 05/05/2024 10:32 EDT Able To Drink Order Detail Yes Able To Sign Consents Order Detail Yes Code Status Order Detail Full code IV Order Detail Yes Dialysis Schedule Order Detail N/A Has Diabetes Order Detail Yes Isolation Precautions Order Detail None Nurse Collect Order Detail 0 Oxygen Order Detail No Order Detail N/A Prior Valve Replacement Order Detail No Transport Mode Order Detail Patient bed Pantograph Ii Engraver Details Form Pantograph Ii Engraver Details Form 05/05/2024 10:31 EDT Individuals Taught Patient Learning Readiness Willing to learn Barriers to Learning None evident Teaching Method Explanation Preferred Spoken Language Burkinan Preferred Written Language Burkinan Diagnostic Procedures Education Preprocedure/surgical instructions Teaching Evaluation Verbalizes/Nonverbally indicates understanding 05/05/2024 10:26 EDT BMAT Existing Patient Condition/Safety No order for Strict Bedrest BMAT Level 1: Sit and Shake Patient unable BMAT Mobility Level 0 05/05/2024 10:23 EDT NPO Status Maintained 05/05/2024 10:22 EDT Primary Pain Intensity 0 Primary Pain Nonverbal Response Nods No Pain Scale Type 0-10 Pain scale Standard Safety Safety level maintained 05/05/2024 9:31 EDT Blood Glucose, Capillary 225 mg/dL HI Blood Glucose Testing Reason Routine insulin lispro 8 unit(s) unit(s) 05/05/2024 9:03 EDT Urethral Indwelling/Continuous 04/16/2024 Urinary Catheter Care Completed: Yes Forearm Left 05/05/2024 20 gauge Peripheral IV Activity: Assessed Peripheral IV Dressing Condition: Clean, Dry, Intact Peripheral IV Dressing Activity: Transparent dressing Peripheral IV Line Status/Patency: Flushes easily, 10ml normal saline flush Peripheral IV Line Care: Secured with tape Peripheral IV Site Condition: No complications Peripheral IV Equipment: PRN Adaptor 05/05/2024 9:02 EDT CHG Preoperative Wash/Wipe Day of procedure Hair Care One assist Oral Care Independent Skin Care Done Skin Care Product Applied CHG bath Miranda Care One assist 05/05/2024 9:00 EDT bacitracin topical Not Done: Not Appropriate at this Time (Not Done) emollients, topical Not Done: Not Appropriate at this Time (Not Done) menthol-zinc oxide topical Not Done: Not Appropriate at this Time (Not Done) sodium hypochlorite topical Not Done: Not Appropriate at this Time (Not Done) 05/05/2024 8:49 EDT Apical Heart Rate 90 bpm amiodarone 400 mg mg amLODIPine 10 mg mg bumetanide 1 mg mg cefdinir 300 mg mg linezolid 600 mg mg losartan 25 mg mg metoprolol 100 mg mg minocycline 100 mg mg omeprazole 40 mg mg 05/05/2024 8:39 EDT Forearm Left 05/05/2024 20 gauge Peripheral IV Activity: Bedside IV start by ultrasound guidance Peripheral IV Dressing Condition: Clean, Dry, Intact Peripheral IV Dressing Activity: Applied, Transparent dressing Peripheral IV Line Status/Patency: Flushes easily, 10ml normal saline flush, Good blood return Peripheral IV Line Care: Secured with tape Peripheral IV Site Condition: No complications Peripheral IV Equipment: PRN Adaptor 05/05/2024 8:27 EDT Discharge To, Anticipated Skilled facility Transition Planning Note Transition Planning Ongoing Assessment 05/05/2024 8:20 EDT Blood Glucose, Capillary 225 mg/dL HI Blood Glucose Testing Reason Routine 05/05/2024 8:00 EDT insulin isophane Not Done: Patient NPO (Not Done) 05/05/2024 7:40 EDT Primary Pain Intensity 0 Primary Pain Nonverbal Response Appears restful Pain Scale Type 0-10 Pain scale Heart Rhythm Regular Dorsalis Pedis Pulse, Left 1+ Thready Dorsalis Pedis Pulse, Right 1+ Thready Radial Pulse, Left 2+ Normal Radial Pulse, Right 2+ Normal Pedal edema Bilateral Edema Ratin+ moderate/6mm Respirations Unlabored Respiratory Pattern Regular Breath Sounds Auscultated Anterior only All Lobes Breath Sounds Clear Cough None Oxygen Therapy Room air Abdomen Description Non-distended Abdomen Palpation Tender Passing Flatus Yes Bowel Movement Last Date 05/04/2024 Swallowing Disorder None Bowel Sounds All Quadrants Present Urinary Elimination Urinary catheter draining Urinary Elimination Devices Indwelling catheter Facial Movement Makes facial grimaces Skin Symptoms Bruising Skin Temperature Warm Skin Description Normal for ethnicity Skin Integrity Not intact Skin Turgor Non-Elastic Mucous Membrane Color [place] Mucous Membrane Description Moist Sensory Perception [place] Very limited Moisture Costa Rarely moist Activity Costa Bedfast Mobility Costa Very limited Nutrition [place] Adequate Friction and Shear [place] Potential problem Costa Score 14 Hospital Acquired Pressure Injury Risk Moderate risk (score 13-14) Scrotum Skin Abnormality Type: Surgical incision Incision, Wound Dressing/Activity: Assessed Incision, Wound Dressing Assessment: Clean, Dry, Intact Incision, Wound Dressing: ABD dressing pad, Gauze dressing Wound Status: No complications Groin Skin Abnormality Type: Incontinence associated dermatitis Incision, Wound Dressing/Activity: Open to air Wound Status: No complications Perineum Skin Abnormality Type: Incontinence associated dermatitis Incision, Wound Dressing/Activity: Open to air Wound Status: No complications Continuous IV Infusions adapted Neurological Language Able to speak clearly Neurological Symptoms Patient denies Gait Unable to assess Extremity Movement Unequal Swallowing Difficulty None Characteristics of Communication Appropriate Characteristics of Speech Clear Facial Symmetry Symmetric Level of Consciousness Alert Aspiration Risk None GRAY Yes Left Upper Extremity Strength Moderate Right Upper Extremity Strength Moderate Left Lower Extremity Strength Weak Right Lower Extremity Strength Weak Tone All Extremities Normal Left Upper Extremity Sensation Intact Right Upper Extremity Sensation Intact Left Lower Extremity Sensation Decreased Right Lower Extremity Sensation Decreased CN V Facial Sensation Light touch equal bilaterally CN VII Facial Expression and Symmetry Facial movement symmetrical CN VIII Hearing Spoken word equally audible left/right CN IX, X Swallowing, Gag Reflex Swallowing present Rey Screen Daily History of Fall in Last 3 Months Rey No Presence of Secondary Diagnosis Rey Yes Use of Ambulatory Aid Rey None, bedrest, wheelchair, nurse IV/PRN Adapter Fall Risk Rey Yes Gait Weak or Impaired Fall Risk Rey Normal, bedrest, immobile Mental Status Fall Risk Rey Oriented to own ability Rey Fall Risk Score 35 Violence Risk Confused No Violence Risk Irritable No Violence Risk Boisterous No Violence Risk Verbal Threats No Violence Risk Physical Threats No Violence Risk Attacking Objects No Violence Risk Predictor Score 0 Violence Risk Intervention None Violence Risk Current Interventions None Affect/Behavior Appropriate, Calm, Cooperative Orientation Oriented x 4 Positioning Repositioned back Activity Status ADL Awake, Watching TV Beds/Devices low air loss bed Sequential Compression Device bilateral knee high applied/on Skin Care Preventative Intervention(s) heel(s)s elevated Nurse Safety Checks q2hrs Performed 7am-7pm Standard Safety ID band on, Call device within reach, Safety level maintained High Risk Safety Room check performed Demonstrates Correct Call Light Use Yes Appetite Good Eating Difficulties None Stool Count 0 EA 05/05/2024 7:37 EDT NPO Status Maintained 05/05/2024 7:00 EDT Urethral Indwelling/Continuous 04/16/2024 Urinary Catheter Output: 875 mL Oral Intake 30 mL Stool Count 0 EA 05/05/2024 6:54 EDT Temperature Oral 36.8 DegC Peripheral Pulse Rate 86 bpm Respiratory Rate 16 br/min Systolic Blood Pressure Non-Invasive 147 mmHg HI Diastolic Blood Pressure Non-Invasive 84 mmHg Blood Pressure Method Automatic Blood Pressure Location Right arm Blood Pressure Cuff Size Medium Reason For Taking VItal Signs Routine Oxygen Therapy Room air Oxygen Saturation 95 % 05/05/2024 5:57 EDT Oxygen Therapy Room air Oxygen Activity Room air Oxygen Flow Rate 0 05/05/2024 3:48 EDT NPO Status Maintained NPO Since 05/05/2024 0:00 Oral Intake 0 mL 05/05/2024 3:27 EDT Temperature Oral 36.8 DegC Heart Rate Monitored 80 bpm Respiratory Rate 16 br/min Systolic Blood Pressure Non-Invasive 139 mmHg Diastolic Blood Pressure Non-Invasive 78 mmHg Oxygen Saturation 94 % NPO Status Maintained NPO Since 05/05/2024 0:00 Oral Intake 0 mL 05/05/2024 3:12 EDT Respiratory Rate 16 br/min Primary Pain Intensity 0 Primary Pain Nonverbal Response Appears restful Pain Scale Type PAINAD Oxygen Therapy Room air Positioning Repositioned right side Activity Status ADL Lights dimmed, Sleeps intermittently Beds/Devices low air loss bed Activity Assistance Two assist Sequential Compression Device bilateral knee high applied/on NPO Status Maintained NPO Since 05/05/2024 0:00 Standard Safety ID band on, Allergy Band on, Call device within reach, Bed in low position, Wheels locked, Upper/Half-Length side-rails up, Phone within reach, personal items within reach, Safety level maintained, Hazards removed from floor, Precautions maintained High Risk Safety Room check performed Demonstrates Correct Call Light Use Yes Degrees Head of Bed Elevated 15 Oral Intake 0 mL 05/05/2024 0:27 EDT Temperature Oral 36.7 DegC Heart Rate Monitored 84 bpm Respiratory Rate 16 br/min Systolic Blood Pressure Non-Invasive 135 mmHg Diastolic Blood Pressure Non-Invasive 76 mmHg Oxygen Saturation 95 % Urethral Indwelling/Continuous 04/16/2024 Urinary Catheter Output: 375 mL NPO Status Maintained NPO Since 05/05/2024 0:00 Oral Intake 0 mL 05/05/2024 0:00 EDT Respiratory Rate 16 br/min Primary Pain Intensity 0 Primary Pain Nonverbal Response Nods No Pain Scale Type 0-10 Pain scale Oxygen Therapy Room air Bowel Movement Last Date 05/04/2024 CHG Preoperative Wash/Wipe Night before procedure Positioning Repositioned left side Activity Status ADL Lights dimmed, Resting, Watching TV Beds/Devices low air loss bed Activity Assistance Two assist Sequential Compression Device bilateral knee high applied/on NPO Status Initiated NPO Since 05/05/2024 0:00 Linen Change Done Standard Safety ID band on, Allergy Band on, Call device within reach, Bed in low position, Wheels locked, Upper/Half-Length side-rails up, Phone within reach, personal items within reach, Safety level maintained, Hazards removed from floor, Precautions maintained High Risk Safety Room check performed Demonstrates Correct Call Light Use Yes lidocaine topical Not Done: Patient Refused (Not Done) Degrees Head of Bed Elevated 20 Oral Intake 0 mL 05/04/2024 23:00 EDT Respiratory Rate 16 br/min Primary Pain Intensity 0 Primary Pain Nonverbal Response Nods No Pain Scale Type 0-10 Pain scale Oxygen Therapy Room air Stool Description Incontinent, Medium amount, Soft Buttock Right Pressure Ulcer Stage: Unstageable Pressure Area Drainage: Purulent, Serous Pressure Area Dressing Description: Drainage present, Changed Pressure Area Dressing Type: Foam Pressure Area Cleansing: Irrigated with sterile saline Pressure Area Topical Agent: Medihoney (Leptospermum Honey) Individuals Taught Patient Learning Readiness low motivation level Barriers to Learning None evident Teaching Method Explanation Preferred Spoken Language Burkinan Preferred Written Language Burkinan Incision/Wound Education Dressing changes, Other: The importance of dressing changes, the need for keeping wounds clean, the importance of appropriate treatment to prevent further complications Skin/Wound Teaching Evaluation Needs reinforcement Oral Intake 0 mL Emesis Count 0 EA Stool Count 1 EA 05/04/2024 22:26 EDT Primary Pain Location Scrotum Primary Pain Intensity 5 Primary Pain Pharma Intervention Medication Primary Pain Nonverbal Response Nods Yes Pain Scale Type 0-10 Pain scale HYDROmorphone 0.2 mg mg 05/04/2024 21:51 EDT bacitracin topical 1 artemio artemio cefdinir 300 mg mg emollients, topical 1 artemio artemio linezolid 600 mg mg menthol-zinc oxide topical 1 artemio artemio minocycline 100 mg mg sodium hypochlorite topical 1 artemio artemio 05/04/2024 21:50 EDT insulin glargine 30 unit(s) unit(s) 05/04/2024 21:39 EDT insulin lispro 2 unit(s) unit(s) 05/04/2024 21:35 EDT Blood Glucose, Capillary 166 mg/dL HI Blood Glucose Testing Reason Routine Respiratory Rate 16 br/min Primary Pain Location Scrotum Primary Pain Intensity 3 Pain Scale Type 0-10 Pain scale Nail Bed Color [place] Capillary Refill < 2 seconds Dorsalis Pedis Pulse, Left 1+ Thready Dorsalis Pedis Pulse, Right 1+ Thready Radial Pulse, Left 2+ Normal Radial Pulse, Right 2+ Normal Pedal edema Bilateral Edema Ratin+ moderate/6mm Oxygen Therapy Room air GI Symptoms Constipation Abdomen Description Non-distended Abdomen Palpation Tender Abdomen Tender Suprapubic Passing Flatus Yes Swallowing Disorder None Bowel Sounds All Quadrants Present Tolerating Oral Intake Yes Urinary Elimination Urinary catheter draining Urine Color Yellow Urine Description Clear Urinary Elimination Devices Indwelling catheter Facial Movement Makes facial grimaces, Symmetric resting/crying Skin Symptoms Bruising All Extremity Description Normal for ethnicity Skin Temperature Warm Temperature All Extremities Warm Skin Description Normal for ethnicity Skin Integrity Not intact Skin Turgor Non-Elastic Mucous Membrane Color [place] Mucous Membrane Description Moist Sensory Perception [place] Very limited Moisture [place] Rarely moist Activity [place] Bedfast Mobility Costa Very limited Nutrition [place] Adequate Friction and Shear [place] Potential problem Costa Score 14 Hospital Acquired Pressure Injury Risk Moderate risk (score 13-14) Scrotum Skin Abnormality Type: Surgical incision Incision, Wound Dressing/Activity: Assessed Incision, Wound Dressing Assessment: Clean, Dry, Intact Incision, Wound Dressing: ABD dressing pad Groin Skin Abnormality Type: Incontinence associated dermatitis Perineum Skin Abnormality Type: Incontinence associated dermatitis Buttock Right Pressure Ulcer Stage: Unstageable Pressure Area Drainage: Purulent Pressure Area Dressing Description: Drainage present Pressure Area Dressing Type: Foam Forearm Right 20 gauge Peripheral IV Activity: Assessed Peripheral IV Dressing Condition: Dry, Intact, Drainage present Peripheral IV Dressing Activity: Transparent dressing Peripheral IV Line Status/Patency: Infusion flows sluggishly, Does not aspirate, No blood return Peripheral IV Line Care: Alcohol port cap(s) changed Peripheral IV Site Condition: No complications Peripheral IV Equipment: PRN Adaptor Neurological Language Able to speak clearly, Follows simple commands Neurological Symptoms Patient denies Gait Unable to assess Extremity Movement Unequal Swallowing Difficulty None Characteristics of Communication Appropriate Characteristics of Speech Clear Facial Symmetry Symmetric Level of Consciousness Alert Aspiration Risk None Eye Opening Response [place] Spontaneously Best Motor Response [place] Obeys simple commands Best Verbal Response Bo Oriented [place] Coma Score 15 GRAY Yes Left Pupil Description Regular, Round Right Pupil Description Regular, Round Pupil Size, Left 3 mm Pupil Size, Right 3 mm Left Upper Extremity Strength Moderate Right Upper Extremity Strength Moderate Left Lower Extremity Strength Weak Right Lower Extremity Strength Weak Tone All Extremities Normal Left Upper Extremity Sensation Intact Right Upper Extremity Sensation Intact Left Lower Extremity Sensation Decreased Right Lower Extremity Sensation Decreased CN V Facial Sensation Light touch equal bilaterally CN VII Facial Expression and Symmetry Facial movement symmetrical CN VIII Hearing Spoken word equally audible left/right CN IX, X Swallowing, Gag Reflex Swallowing present Rey Screen Daily History of Fall in Last 3 Months Rey No Presence of Secondary Diagnosis Rey Yes Use of Ambulatory Aid Rey None, bedrest, wheelchair, nurse IV/PRN Adapter Fall Risk Rey Yes Gait Weak or Impaired Fall Risk Rey Normal, bedrest, immobile Mental Status Fall Risk Rey Oriented to own ability Rey Fall Risk Score 35 Violence Risk Confused No Violence Risk Irritable No Violence Risk Boisterous No Violence Risk Verbal Threats No Violence Risk Physical Threats No Violence Risk Attacking Objects No Violence Risk Predictor Score 0 Violence Risk Intervention None Violence Risk Current Interventions None Affect/Behavior Appropriate, Calm, Cooperative Orientation Oriented x 4 BMAT Existing Patient Condition/Safety No order for Strict Bedrest BMAT Level 1: Sit and Shake Patient unable BMAT Mobility Level 0 Orientation Assessment Oriented x 4 Positioning Repositioned right side Activity Status ADL Lights dimmed, Watching TV Beds/Devices low air loss bed Activity Assistance Two assist Sequential Compression Device bilateral knee high applied/on Dinner Percent 100 % Skin Care Preventative Intervention(s) heel(s)s elevated Nurse Safety Checks q2hrs Performed 7pm-7am Standard Safety ID band on, Allergy Band on, Call device within reach, Bed in low position, Wheels locked, Upper/Half-Length side-rails up, Phone within reach, personal items within reach, Safety level maintained, Hazards removed from floor, Precautions maintained High Risk Safety Room check performed Demonstrates Correct Call Light Use Yes Degrees Head of Bed Elevated 25 Adaptive Feeding Equipment None Appetite Good Eating Difficulties None Oral Intake 240 mL 05/04/2024 19:53 EDT Temperature Oral 36.8 DegC Peripheral Pulse Rate 85 bpm Respiratory Rate 16 br/min Systolic Blood Pressure Non-Invasive 155 mmHg HI Diastolic Blood Pressure Non-Invasive 86 mmHg Blood Pressure Method Automatic Blood Pressure Location Right arm Blood Pressure Cuff Size Medium Reason For Taking VItal Signs Routine Oxygen Therapy Room air Oxygen Saturation 95 % Positioning Repositioned left side, Encouraged/reinforced importance of turning Activity Status ADL Lights dimmed, Resting Standard Safety ID band on, Call device within reach, Safety level maintained, Precautions maintained High Risk Safety Room check performed Demonstrates Correct Call Light Use Yes 05/04/2024 19:48 EDT Reason For Taking VItal Signs Routine Urethral Indwelling/Continuous 04/16/2024 Urinary Catheter Output: 1,350 mL 05/04/2024 17:10 EDT Apical Heart Rate 88 bpm bumetanide 1 mg mg insulin isophane 8 unit(s) unit(s) insulin lispro 2 unit(s) unit(s) metoprolol 100 mg mg omeprazole 40 mg mg 05/04/2024 16:44 EDT Blood Glucose, Capillary 176 mg/dL HI 05/04/2024 16:37 EDT Temperature Oral 36.8 DegC Peripheral Pulse Rate 87 bpm Respiratory Rate 16 br/min Systolic Blood Pressure Non-Invasive 142 mmHg HI Diastolic Blood Pressure Non-Invasive 87 mmHg Blood Pressure Method Automatic Blood Pressure Location Right arm Blood Pressure Cuff Size Medium Reason For Taking VItal Signs Routine Primary Pain Nonverbal Response Nods No Pain Scale Type 0-10 Pain scale Oxygen Therapy Room air Oxygen Saturation 95 % 05/04/2024 15:00 EDT Oral Intake 480 mL Emesis Count 0 EA Stool Count 0 EA 05/04/2024 14:00 EDT Positioning Refused to be turned 05/04/2024 13:55 EDT Hospitalist Progress Note Progress Note 05/04/2024 12:59 EDT bacitracin topical 1 artemio artemio emollients, topical 1 artemio artemio menthol-zinc oxide topical 1 artemio artemio sodium hypochlorite topical 1 artemio artemio 05/04/2024 12:45 EDT Nephrology Progress Note Progress Note 05/04/2024 12:36 EDT Pain Scale Assessment 0-10 Pain scale Primary Pain Location Scrotum Primary Pain Intensity 0 Reason for PRN medication Pain management PRN medication effectiveness Yes PRN Medication Effectiveness Evaluation PRN Medication Effectiveness Evaluation 05/04/2024 12:15 EDT insulin isophane 8 unit(s) unit(s) insulin lispro 2 unit(s) unit(s) 05/04/2024 12:07 EDT Blood Glucose, Capillary 179 mg/dL HI 05/04/2024 12:06 EDT Primary Pain Intensity 4 Pain Scale Type 0-10 Pain scale HYDROmorphone 0.2 mg mg 05/04/2024 12:00 EDT Lidoderm Patch REMOVAL 1 EA EA 05/04/2024 11:28 EDT Temperature Oral 36.9 DegC Peripheral Pulse Rate 90 bpm Respiratory Rate 16 br/min Systolic Blood Pressure Non-Invasive 151 mmHg HI Diastolic Blood Pressure Non-Invasive 87 mmHg Reason For Taking VItal Signs Routine Oxygen Therapy Room air Oxygen Saturation 95 % Activity Status ADL Awake Assistive Equipment elevated on pillows 05/04/2024 10:06 EDT Worker's Comp Patient No OT Attempts Attempted to tx. Pt in bed, declines tx. Pt states, Not right now. I just got off the bedpan. Educated on importance of therapy. Pt cont to decline. Unable to tx. OT Update Discharge Recommendation No OT Initiate/Continue Treatment Yes OT Goals OT Goals Occupational Therapy Daily Note Form Occupational Therapy Daily Note Form Occupational Therapy Progress Note OT Daily Note 05/04/2024 10:05 EDT Worker's Comp Patient No PT Initiate/Continue Treatment Yes Physical Therapy Daily Notes Form Physical Therapy Daily Notes Form Physical Therapy Progress Note Physical Therapy Daily Notes 05/04/2024 10:01 EDT Urology Progress Note Urology Progress Note 05/04/2024 10:00 EDT cefdinir 300 mg mg 05/04/2024 9:46 EDT Individuals Taught Patient Learning Readiness low motivation level Barriers to Learning None evident Teaching Method Explanation Preferred Spoken Language Burkinan Preferred Written Language Burkinan Diagnostic Procedures Education Postprocedure/surgical instructions Teaching Evaluation Needs reinforcement 05/04/2024 9:00 EDT losartan 25 mg mg 05/04/2024 8:43 EDT Apical Heart Rate 88 bpm Reason For Taking VItal Signs Routine Primary Pain Intensity 0 Primary Pain Nonverbal Response Nods No Pain Scale Type 0-10 Pain scale Nail Bed Color [place] Capillary Refill < 2 seconds Heart Sounds ICU [id number] Heart Rhythm Regular Dorsalis Pedis Pulse, Left 1+ Thready Dorsalis Pedis Pulse, Right 1+ Thready Radial Pulse, Left 2+ Normal Radial Pulse, Right 2+ Normal Pedal edema Bilateral Edema Ratin+ mild/4mm Respirations Unlabored Respiratory Pattern Regular Breath Sounds Auscultated Anterior only All Lobes Breath Sounds Clear, Diminished Cough and Deep Breathe Done Cough None Oxygen Therapy Room air GI Symptoms Constipation Abdomen Description Non-distended Abdomen Palpation Non-Tender Abdomen Tender Suprapubic Passing Flatus Yes Bowel Continence No bowel movement Swallowing Disorder None Bowel Sounds All Quadrants Present Urinary Elimination Urinary catheter draining Urine Color Yellow Urine Description Clear Urinary Elimination Devices Indwelling catheter Urethral Indwelling/Continuous 04/16/2024 Urinary Catheter Indication: Order not to remove Urinary Catheter Activity: Assessed Urinary Catheter Secured: Securement device on Urinary Catheter Drainage System: Dependent drainage bag Urinary Catheter Site Condition: No complications Facial Movement Symmetric resting/crying Skin Symptoms Bruising All Extremity Description Normal for ethnicity Skin Temperature Warm Temperature All Extremities Warm Skin Description Normal for ethnicity Skin Integrity Not intact Skin Turgor Non-Elastic Mucous Membrane Color [place] Mucous Membrane Description Moist Sensory Perception Costa Slightly limited Moisture Costa Occasionally moist Activity Costa Chairfast Mobility Costa Slightly limited Nutrition Costa Probably inadequate Friction and Shear Costa Potential problem Costa Score 15 Hospital Acquired Pressure Injury Risk Low risk (score 15-18) Scrotum Skin Abnormality Type: Surgical incision Incision, Wound Dressing/Activity: Assessed Incision, Wound Dressing Assessment: Clean, Dry, Intact Incision, Wound Dressing: ABD dressing pad Groin Skin Abnormality Type: Incontinence associated dermatitis Perineum Skin Abnormality Type: Incontinence associated dermatitis Buttock Right Pressure Ulcer Stage: Unstageable Pressure Area Drainage: Purulent Pressure Area Dressing Description: Drainage present, Changed (Modified) Pressure Area Dressing Type: Foam Forearm Right 20 gauge Peripheral IV Activity: Assessed Peripheral IV Dressing Condition: Clean, Dry, Intact Peripheral IV Dressing Activity: Transparent dressing Peripheral IV Line Status/Patency: Flushes easily Peripheral IV Line Care: Secured with tape Peripheral IV Site Condition: No complications Peripheral IV Equipment: PRN Adaptor Neurological Language Able to speak clearly Neurological Symptoms Numbness, Tingling Gait Unable to assess Extremity Movement Equal Swallowing Difficulty None Characteristics of Communication Appropriate Characteristics of Speech Clear Facial Symmetry Symmetric Level of Consciousness Alert Aspiration Risk None GRAY Yes Left Pupil Description Regular Right Pupil Description Regular Left Pupil Reaction Brisk Right Pupil Reaction Brisk Pupil Size, Left 3 mm Pupil Size, Right 3 mm Left Upper Extremity Strength Moderate Right Upper Extremity Strength Moderate Left Lower Extremity Strength Weak Right Lower Extremity Strength Weak Tone All Extremities Normal Left Upper Extremity Sensation Intact Right Upper Extremity Sensation Intact Left Lower Extremity Sensation Decreased, Numbness, Tingling Right Lower Extremity Sensation Decreased, Numbness, Tingling CN V Facial Sensation Light touch equal bilaterally CN VII Facial Expression and Symmetry Facial movement symmetrical CN VIII Hearing Spoken word equally audible left/right CN IX, X Swallowing, Gag Reflex Swallowing present Rey Screen Daily History of Fall in Last 3 Months Rey No Presence of Secondary Diagnosis Rey Yes Use of Ambulatory Aid Rey None, bedrest, wheelchair, nurse IV/PRN Adapter Fall Risk Rey Yes Gait Weak or Impaired Fall Risk Rey Weak Mental Status Fall Risk Rey Oriented to own ability Rey Fall Risk Score 45 Violence Risk Confused No Violence Risk Irritable No Violence Risk Boisterous No Violence Risk Verbal Threats No Violence Risk Physical Threats No Violence Risk Attacking Objects No Violence Risk Predictor Score 0 Violence Risk Intervention None Violence Risk Current Interventions None Affect/Behavior Appropriate Orientation Oriented x 4 Orientation Assessment Oriented x 4 Memory Recall Ability Current season Positioning Repositioned back Activity Status ADL Bedpan Provided Skin Care Preventative Intervention(s) heel(s)s elevated Standard Safety Safety level maintained High Risk Safety Room check performed Demonstrates Correct Call Light Use Yes amiodarone 400 mg mg amLODIPine 10 mg mg bumetanide 1 mg mg insulin isophane 8 unit(s) unit(s) insulin lispro 6 unit(s) unit(s) linezolid 600 mg mg metoprolol 100 mg mg minocycline 100 mg mg Appetite Good Eating Difficulties None Stool Count 0 EA 05/04/2024 8:10 EDT Blood Glucose, Capillary 234 mg/dL HI 05/04/2024 7:12 EDT Oxygen Therapy Room air Oxygen Activity Room air Oxygen Flow Rate 0 05/04/2024 7:02 EDT Temperature Oral 36.7 DegC Peripheral Pulse Rate 80 bpm Respiratory Rate 16 br/min Systolic Blood Pressure Non-Invasive 156 mmHg HI Diastolic Blood Pressure Non-Invasive 90 mmHg HI Blood Pressure Method Automatic Blood Pressure Location Right arm Blood Pressure Cuff Size Medium Oxygen Therapy Room air Oxygen Saturation 93 % 05/04/2024 6:58 EDT RN Coordination of Care 7am-3pm 05/04/2024 6:56 EDT omeprazole 40 mg mg 05/04/2024 5:45 EDT Respiratory Rate 16 br/min Primary Pain Intensity 0 Primary Pain Nonverbal Response Appears restful Pain Scale Type PAINAD Oxygen Therapy Room air Positioning Repositioned back, Repositions self Activity Status ADL Lights dimmed, Resting, Watching TV Beds/Devices low air loss bed Activity Assistance Two assist Standard Safety ID band on, Allergy Band on, Call device within reach, Bed in low position, Wheels locked, Upper/Half-Length side-rails up, Phone within reach, personal items within reach, Safety level maintained, Hazards removed from floor, Precautions maintained High Risk Safety Room check performed Demonstrates Correct Call Light Use Yes Degrees Head of Bed Elevated 25 05/04/2024 4:59 EDT WBC 7.9 10^3/mcL RBC 3.53 10^6/mcL LOW Hgb 9.7 G/dL LOW Hct 29.1 % LOW MCV 82.5 fL MCH 27.4 pg MCHC 33.2 G/dL RDW 18.8 % HI Platelet 295 10^3/mcL MPV 7.4 fL Neutrophil % 66.0 % Lymphocyte % 18.9 % LOW Monocyte % 11.7 % Eosinophil % 2.1 % Basophil % 1.3 % Neutrophil, Absolute 5.2 10^3/mcL Lymphocyte, Absolute 1.5 10^3/mcL Monocyte, Absolute 0.9 10^3/mcL Eosinophil, Absolute 0.2 10^3/mcL Basophil, Absolute 0.1 10^3/mcL Glucose Level 255 mg/dL HI Sodium L (more content not included)... 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 ID is following, treated with linezolid and meropenem , Wound culture positive for group beta-hemolytic strep and Serratia marcescens, staph epi, lactobacillus gasseri, and enterococcus. Recommending a course of cefdinir Zyvox and minocycline on discharge. Wound care following, recommending local wound treatments. Patient developed A-fib with RVR for which cardiology is involved. Echocardiogram showed EF systolic functionseverely reduced with an EF of 25 to 30%. Diastolic dysfunction present. Currently being treated with amiodarone, metoprolol and apixaban. Recommending ischemic evaluation once acute complaints are resolved, follow-up with cardiology outpatient. Nephrology following and managing diuretics. Patient was skilled by physical and Occupational Therapy, patient is agreeable to SNF awaiting pre-CERT. Patient did undergo additional I&D today with Dr. Morales. Pre-CERT for rehab still pending. Patient voicing frustration with prolonged hospitalization. Objective Vitals and Measurements T: 36.8 C (Oral) TMIN: 36.7 C (Oral) TMAX: 36.9 C (Oral) HR: 90 (Apical) RR: 16 BP: 147/84 SpO2: 95% Intake and Output 7AM Yesterday to 7AM Today Intake and Output (Last 24 hours) Intake Oral Intake 750.00 Output Urinary Catheter Output: 2600.00 Stool Count 1.00 Emesis Count 0.00 Total Summary Total Intake 750.00 Total Output 2600.00 Fluid Balance -1850.00 Physical Exam Constitutional: Patient is alert and oriented x3. In no acute distress. Eyes: PERRLA, EOM intact. Respiratory: Breathing nonlabored Neuro: speech clear. MIRZA equally. memory intact Skin: no rashes or lesions noted. skin warm, dry Weight Dosing Weight: 125 kg (04/22/24) Medications Medications (24) Active Scheduled: (18) amiodarone 200 mg tablet 400 mg 2 tab(s), Oral, qDayM amLODIPine 10 mg tablet 10 mg 1 tab(s), Oral, qDay bacitracin topical 500 units/g Ointment TUBE 1 artemio, Topical, BID bumetanide 1 mg tablet 1 mg 1 tab(s), Oral, BID cefdinir 300 mg Capsule 300 mg 1 cap(s), Oral, BID emollients (Eucerin Cream) 30gm 1 artemio, Topical, BID insulin glargine 30 unit(s) 0.3 mL, Subcutaneous (INT), qHS insulin isophane human recombinant 100 units/ml (10 mL) Inj 8 unit(s) 0.08 mL, Subcutaneous, TIDAC insulin lispro 100 units/mL Soln (3 mL) Give 0-10 units/dose, Subcutaneous, achs lidocaine patch REMOVAL 1 EA, Miscellaneous, q24h lidocaine topical 4% patch 1 patch(es), Transdermal, q24h linezolid 600 mg tablet 600 mg 1 tab(s), Oral, BID losartan 25 mg tablet 25 mg 1 tab(s), Oral, qDay menthol-zinc oxide topical ointment 4oz 1 artemio, Topical, amhs metoprolol succinate 100 mg ER tablet 100 mg 1 tab(s), Oral, BID minocycline 100 mg Capsule 100 mg 1 cap(s), Oral, q12h omeprazole [address] capsule 40 mg 1 cap(s), Oral, BIDAC sodium hypochlorite topical 0.25% Soln 1 artemio, Topical, BID Continuous: (0) PRN: (6) albuterol - ipratropium 2.5 mg-0.5 mg/3 mL Inhal Elena UD 3 mL, Inhalation, q2hRT dextrose 50% Solution Disp syringe 50 mL 12.5 gram(s) 25 mL, IV Push, AsDirected HYDROmorphone 0.5 mg/0.5 mL PF syringe 0.2 mg 0.2 mL, IV Push, q3h menthol-zinc oxide topical ointment 4oz 1 artemio, Topical, BID metoprolol 1 mg/mL (5mL) vial 10 mg 10 mL, IV Push, q6h ondansetron 2 mg/ 1 mL 2 mL INJ 4 mg 2 mL, IV Push, q6h Lab Results 05/04 04:59 WBC: 7.9 Hgb: 9.7 L Hct: 29.1 L Platelet: 295 Neutrophil %: 66.0 Glucose Level: 255 H Sodium Level: 136 Potassium Level: 4.1 BUN: 47.0 H Creatinine Lvl (s): 2.16 H EKG No qualifying data available. Assessment/Plan 1. Acute respiratory failure 2. Septic shock 3. Claire gangrene 4. GENE (acute kidney injury) 5. Diabetes mellitus 6. Anemia 7. A-fib 8. 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 Patient has been weaned to room air. Has been to the OR twice for debridement. Urology and ID involved as well as plastics who is recommending local wound care. Additional I&D today with Dr. Morales. ID recommending cefdinir, zyvox, and minocycline on discharge. Nephrology involved for GENE creatinine baseline around 2.6. continue p.o. Bumex. atrial fibrillation and acute on chronic systolic heart failure. Echocardiogram completed showed EFof 25 to 30%, dialysis dysfunction present. Continue with metoprolol, amiodarone (last dose today),resume apixaban when cleared by Dr. Morales after surgery. Will need outpatient follow-up for ischemic evaluation once acute issues have resolved. Continue goal-directed medical therapy. Continue low dose losartan. hematochezia and anemia- Patient developed an episode of hematochezia after being started on heparin drip. Hemoglobin has remained stable. Underwent flex sigmoid found to have a 2 cm ulcer in the rectum with no active bleeding. Recommend to avoid constipation and recommend colonoscopy outpatient in6 weeks. Diabetes mellitus continue glycemic regimen. PT OT recommending inpatient rehab, awaiting arrangements/precert Discussed w/ Dr. Love Anticipated Date of Discharge once cleared by Dr Morales and when precert obtained. Time Spent A total of 35 minutes reviewing patient's diagnostic, labs/tests, seeing and examining the patient and documenting in the medical record, please see assessment for further details. Digitally Signed by MY DUTTON on 05/05/2024 10:[address] 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 ID is following, treated with linezolid and meropenem , Wound culture positive for group beta-hemolytic strep and Serratia marcescens, staph epi, lactobacillus gasseri, and enterococcus. Recommending a course of cefdinir Zyvox and minocycline on discharge. Wound care following, recommending local wound treatments. Patient developed A-fib with RVR for which cardiology is involved. Echocardiogram showed EF systolic functionseverely reduced with an EF of 25 to 30%. Diastolic dysfunction present. Currently being treated with amiodarone, metoprolol and apixaban. Recommending ischemic evaluation once acute complaints are resolved, follow-up with cardiology outpatient. Nephrology following and managing diuretics. Patient was skilled by physical and Occupational Therapy, patient is agreeable to SNF awaiting pre-CERT. Patient was reevaluated by urology and plastics, recommendation is to undergo additional debridement onMonday with Dr. Morales. Patient seen and evaluated today. Denies any issues overnight. Just wishes to be out of the hospital. Objective Vitals and Measurements T: 36.9 C (Oral) TMIN: 36.7 C (Oral) TMAX: 37.2 C (Oral) HR: 90 RR: 16 BP: 151/87 SpO2: 95% Intake and Output 7AM Yesterday to 7AM Today Intake and Output (Last 24 hours) Intake Oral Intake 1117.00 Output Urinary Catheter Output: 1525.00 Stool Count 0.00 Emesis Count 0.00 Total Summary Total Intake 1117.00 Total Output 1525.00 Fluid Balance -408.00 Physical Exam Constitutional: Patient is alert and oriented x3. In no acute distress. ENT: hearing grossly intact, mucous membranes moist, Respiratory: Breathing nonlabored Neuro: speech clear. MIRZA equally. memory intact Skin: no rashes or lesions noted. skin warm, dry . Weight Dosing Weight: 125 kg (04/22/24) Medications Medications (24) Active Scheduled: (18) amiodarone 200 mg tablet 400 mg 2 tab(s), Oral, qDayM amLODIPine 10 mg tablet 10 mg 1 tab(s), Oral, qDay bacitracin topical 500 units/g Ointment TUBE 1 artemio, Topical, BID bumetanide 1 mg tablet 1 mg 1 tab(s), Oral, BID cefdinir 300 mg Capsule 300 mg 1 cap(s), Oral, BID emollients (Eucerin Cream) 30gm 1 artemio, Topical, BID insulin glargine 30 unit(s) 0.3 mL, Subcutaneous (INT), qHS insulin isophane human recombinant 100 units/ml (10 mL) Inj 8 unit(s) 0.08 mL, Subcutaneous, TIDAC insulin lispro 100 units/mL Soln (3 mL) Give 0-10 units/dose, Subcutaneous, achs lidocaine patch REMOVAL 1 EA, Miscellaneous, q24h lidocaine topical 4% patch 1 patch(es), Transdermal, q24h linezolid 600 mg tablet 600 mg 1 tab(s), Oral, BID losartan 25 mg tablet 25 mg 1 tab(s), Oral, qDay menthol-zinc oxide topical ointment 4oz 1 artemio, Topical, amhs metoprolol succinate 100 mg ER tablet 100 mg 1 tab(s), Oral, BID minocycline 100 mg Capsule 100 mg 1 cap(s), Oral, q12h omeprazole [address] capsule 40 mg 1 cap(s), Oral, BIDAC sodium hypochlorite topical 0.25% Soln 1 artemio, Topical, BID Continuous: (0) PRN: (6) albuterol - ipratropium 2.5 mg-0.5 mg/3 mL Inhal Elena UD 3 mL, Inhalation, q2hRT dextrose 50% Solution Disp syringe 50 mL 12.5 gram(s) 25 mL, IV Push, AsDirected HYDROmorphone 0.5 mg/0.5 mL PF syringe 0.2 mg 0.2 mL, IV Push, q3h menthol-zinc oxide topical ointment 4oz 1 artemio, Topical, BID metoprolol 1 mg/mL (5mL) vial 10 mg 10 mL, IV Push, q6h ondansetron 2 mg/ 1 mL 2 mL INJ 4 mg 2 mL, IV Push, q6h Lab Results 05/04 04:59 WBC: 7.9 Hgb: 9.7 L Hct: 29.1 L Platelet: 295 Neutrophil %: 66.0 Glucose Level: 255 H Sodium Level: 136 Potassium Level: 4.1 BUN: 47.0 H Creatinine Lvl (s): 2.16 H 05/03 04:41 WBC: 8.5 Hgb: 10.1 L Hct: 29.9 L Platelet: 334 Neutrophil %: 68.9 Glucose Level: 185 H Sodium Level: 139 Potassium Level: 4.0 BUN: 42.0 H Creatinine Lvl (s): 1.97 H EKG No qualifying data available. Assessment/Plan 1. Acute respiratory failure 2. Septic shock 3. Claire gangrene 4. GENE (acute kidney injury) 5. Diabetes mellitus 6. Anemia 7. A-fib 8. 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 Patient has been weaned to room air. Has been to the OR twice for debridement. Urology and ID involved as well as plastics who is recommending local wound care. ID recommending cefdinir, zyvox, and minocycline on discharge. Additional I&D on Sunday with Dr. Morales. Nephrology involved for GENE creatinine baseline around 2.6. continue p.o. Bumex. Creatinine 2.16 today. atrial fibrillation and acute on chronic systolic heart failure. Echocardiogram completed showed EFof 25 to 30%, dialysis dysfunction present. Continue with metoprolol, amiodarone (for one week total), apixaban. Will need outpatient follow-up for ischemic evaluation once acute issues have resolved. Continue goal-directed medical therapy. Continue dose losartan. hematochezia and anemia- Patient developed an episode of hematochezia after being started on heparin drip. Hemoglobin has remained stable. Underwent flex sigmoid found to have a 2 cm ulcer in the rectum with no active bleeding. Recommend to avoid constipation and recommend colonoscopy outpatient in6 weeks. Diabetes mellitus continue glycemic regimen. PT OT recommending inpatient rehab, awaiting arrangements Discussed w/ Dr. Love Digitally Signed by MY DUTTON on 05/04/2024 02:[address] [facility] [id number] Nephrology Progress note Subjective Patient seen and examined. Chart was reviewed. Objective Vitals and Measurements T: 36.9 C (Oral) TMIN: 36.7 C (Oral) TMAX: 37.2 C (Oral) HR: 90 RR: 16 BP: 151/87 SpO2: 95% Intake and Output 7AM Yesterday to 7AM Today Intake and Output (Last 24 hours) Intake Oral Intake 1117.00 Output Urinary Catheter Output: 1525.00 Stool Count 0.00 Emesis Count 0.00 Total Summary Total Intake 1117.00 Total Output 1525.00 Fluid Balance -408.00 Physical Exam General: No distress on room air HEENT: Mucosa was moist, sclera anicteric, extraocular muscles intact, JVD present Lungs: Clear bilaterally with no crackles wheezes or rhonchi Heart: Regular Abdomen: Positive bowel sounds, soft, no palpable masses : Hernandez catheter in place Extremities: trace edema, pulses 2+ in all 4 extremities Skin: No rashes, normal turgor [ [1] Weight Dosing Weight: 125 kg (04/22/24) Medications Medications (24) Active Scheduled: (18) amiodarone 200 mg tablet 400 mg 2 tab(s), Oral, qDayM amLODIPine 10 mg tablet 10 mg 1 tab(s), Oral, qDay bacitracin topical 500 units/g Ointment TUBE 1 artemio, Topical, BID bumetanide 1 mg tablet 1 mg 1 tab(s), Oral, BID cefdinir 300 mg Capsule 300 mg 1 cap(s), Oral, BID emollients (Eucerin Cream) 30gm 1 artemio, Topical, BID insulin glargine 30 unit(s) 0.3 mL, Subcutaneous (INT), qHS insulin isophane human recombinant 100 units/ml (10 mL) Inj 8 unit(s) 0.08 mL, Subcutaneous, TIDAC insulin lispro 100 units/mL Soln (3 mL) Give 0-10 units/dose, Subcutaneous, achs lidocaine patch REMOVAL 1 EA, Miscellaneous, q24h lidocaine topical 4% patch 1 patch(es), Transdermal, q24h linezolid 600 mg tablet 600 mg 1 tab(s), Oral, BID losartan 25 mg tablet 25 mg 1 tab(s), Oral, qDay menthol-zinc oxide topical ointment 4oz 1 artemio, Topical, amhs metoprolol succinate 100 mg ER tablet 100 mg 1 tab(s), Oral, BID minocycline 100 mg Capsule 100 mg 1 cap(s), Oral, q12h omeprazole [address] capsule 40 mg 1 cap(s), Oral, BIDAC sodium hypochlorite topical 0.25% Soln 1 artemio, Topical, BID Continuous: (0) PRN: (6) albuterol - ipratropium 2.5 mg-0.5 mg/3 mL Inhal Elena UD 3 mL, Inhalation, q2hRT dextrose 50% Solution Disp syringe 50 mL 12.5 gram(s) 25 mL, IV Push, AsDirected HYDROmorphone 0.5 mg/0.5 mL PF syringe 0.2 mg 0.2 mL, IV Push, q3h menthol-zinc oxide topical ointment 4oz 1 artemio, Topical, BID metoprolol 1 mg/mL (5mL) vial 10 mg 10 mL, IV Push, q6h ondansetron 2 mg/ 1 mL 2 mL INJ 4 mg 2 mL, IV Push, q6h Lab Results 05/04 04:59 WBC: 7.9 Hgb: 9.7 L Hct: 29.1 L Platelet: 295 Neutrophil %: 66.0 Glucose Level: 255 H Sodium Level: 136 Potassium Level: 4.1 BUN: 47.0 H Creatinine Lvl (s): 2.16 H 05/03 04:41 WBC: 8.5 Hgb: 10.1 L Hct: 29.9 L Platelet: 334 Neutrophil %: 68.9 Glucose Level: 185 H Sodium Level: 139 Potassium Level: 4.0 BUN: 42.0 H Creatinine Lvl (s): 1.97 H EKG No qualifying data available. Assessment/Plan A-fib Acute respiratory failure GENE (acute kidney injury) Anemia Diabetes mellitus Claire gangrene Obesity Septic shock 1. Acute kidney injury with underlying chronic kidney disease stage IV baseline 2.6 2. 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 Septic shock now resolved 4. Atrial fibrillation 5. Anemia 6. Congestive heart failure [2] Renal function at baseline. Urine output adequate. Blood pressure stable maintain current antihypertensive medications. Awaiting an I&D tomorrow. Disposition as per primary service. Antibiotics as per infectious disease. [1] Progress Note; DAMARI FATIMA MD 05/03/2024 10:12 EDT [2] Progress Note; DAMARI FATIMA MD 05/03/2024 10:12 EDT Digitally Signed by DAMARI FATIMA MD on 05/04/2024 12:[address] [id number] Urology Progress note Date of Service 05/04/2024 Pt continues to make slow improvements. Pt to go to surgery tomorrow with plastic surgery. AF VSS abd soft, nt, nd incisions with open wounds with granulation tissue. Some exudative debris in wound A/ Claire's gangrene P/ Pt given reassurance that he will improve. Plan plastic surgery tomorrow and eventually to nursing facility. Digitally Signed by RUBY GEE MD on 05/04/2024 10:[address] 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 ID is following, treated with linezolid and meropenem , Wound culture positive for group beta-hemolytic strep and Serratia marcescens, staph epi, lactobacillus gasseri, and enterococcus. Recommending a course of cefdinir Zyvox and minocycline on discharge. Wound care following, recommending local wound treatments. Patient developed A-fib with RVR for which cardiology is involved. Echocardiogram showed EF systolic functionseverely reduced with an EF of 25 to 30%. Diastolic dysfunction present. Currently being treated with amiodarone, metoprolol and apixaban. Recommending ischemic evaluation once acute complaints are resolved, follow-up with cardiology outpatient. Nephrology following and managing diuretics. Patient was skilled by physical and Occupational Therapy, patient is agreeable to SNF awaiting pre-CERT. Patient was reevaluated by urology and plastics, recommendation is to undergo additional debridement onMonday with Dr. Morales. Patient seen and evaluated today. Continues to complain about being hospitalized still. States he is going stir crazy. Objective Vitals and Measurements T: 36.7 C (Oral) TMIN: 36.7 C (Oral) TMAX: 36.9 C (Oral) HR: 78 RR: 16 BP: 141/81 SpO2: 96% Intake and Output 7AM Yesterday to 7AM Today Intake and Output (Last 24 hours) Intake Oral Intake 1340.00 Supplement Intake 0.00 Output Urinary Catheter Output: 2750.00 Stool Count 0.00 Total Summary Total Intake 1340.00 Total Output 2750.00 Fluid Balance -1410.00 Physical Exam Constitutional: Patient is alert and oriented x3. In no acute distress. ENT: hearing grossly intact, mucous membranes moist, Respiratory: Breathing nonlabored, lungs clear to auscultation bilaterally. Heart: Regular rate and rhythm. S1 S2 heard. GI: Bowel sounds x4 quadrants. No rebound tenderness or guarding. Neuro: speech clear. MIRZA equally. memory intact Skin: no rashes or lesions noted. skin warm, dry Weight Dosing Weight: 125 kg (04/22/24) Medications Medications (24) Active Scheduled: (18) amiodarone 200 mg tablet 400 mg 2 tab(s), Oral, qDayM amLODIPine 10 mg tablet 10 mg 1 tab(s), Oral, qDay bacitracin topical 500 units/g Ointment TUBE 1 artemio, Topical, BID bumetanide 1 mg tablet 1 mg 1 tab(s), Oral, BID cefdinir 300 mg Capsule 300 mg 1 cap(s), Oral, BID emollients (Eucerin Cream) 30gm 1 artemio, Topical, BID insulin glargine 30 unit(s) 0.3 mL, Subcutaneous (INT), qHS insulin isophane human recombinant 100 units/ml (10 mL) Inj 8 unit(s) 0.08 mL, Subcutaneous, TIDAC insulin lispro 100 units/mL Soln (3 mL) Give 0-10 units/dose, Subcutaneous, achs lidocaine patch REMOVAL 1 EA, Miscellaneous, q24h lidocaine topical 4% patch 1 patch(es), Transdermal, q24h linezolid 600 mg tablet 600 mg 1 tab(s), Oral, BID losartan 25 mg tablet 25 mg 1 tab(s), Oral, qDay menthol-zinc oxide topical ointment 4oz 1 artemio, Topical, amhs metoprolol succinate 100 mg ER tablet 100 mg 1 tab(s), Oral, BID minocycline 100 mg Capsule 100 mg 1 cap(s), Oral, q12h omeprazole [address] capsule 40 mg 1 cap(s), Oral, BIDAC sodium hypochlorite topical 0.25% Soln 1 artemio, Topical, BID Continuous: (0) PRN: (6) albuterol - ipratropium 2.5 mg-0.5 mg/3 mL Inhal Elena UD 3 mL, Inhalation, q2hRT dextrose 50% Solution Disp syringe 50 mL 12.5 gram(s) 25 mL, IV Push, AsDirected HYDROmorphone 0.5 mg/0.5 mL PF syringe 0.2 mg 0.2 mL, IV Push, q3h menthol-zinc oxide topical ointment 4oz 1 artemio, Topical, BID metoprolol 1 mg/mL (5mL) vial 10 mg 10 mL, IV Push, q6h ondansetron 2 mg/ 1 mL 2 mL INJ 4 mg 2 mL, IV Push, q6h Lab Results 05/03 04:41 WBC: 8.5 Hgb: 10.1 L Hct: 29.9 L Platelet: 334 Neutrophil %: 68.9 Glucose Level: 185 H Sodium Level: 139 Potassium Level: 4.0 BUN: 42.0 H Creatinine Lvl (s): 1.97 H 05/02 04:48 WBC: 8.6 Hgb: 9.6 L Hct: 29.0 L Platelet: 383 Neutrophil %: 71.2 Glucose Level: 166 H Sodium Level: 139 Potassium Level: 3.8 BUN: 41.0 H Creatinine Lvl (s): 2.14 H Imaging Results and Diagnostics XR Chest 1 View Result Date: April 28, 2024 Verified By: ANTONIO LINDSEY MD CLINICAL STATEMENT: IMPRESSION: 1. Improving bilateral lung infiltrates.2. Small bilateral pleural effusions. XR Chest 1 View Result Date: April 27, 2024 Verified By: KELVIN DOLL DO CLINICAL STATEMENT: IMPRESSION: Congestive failure, progressed when compared to prior examination. CT Abdomen/Pelvis w/o Contrast Result Date: April 24, 2024 Verified By: Destini_systemJAMIE CLINICAL STATEMENT: IMPRESSION: 1. Right lower lobe consolidation with moderate bilateral effusions.2. No acute intra-pathology however evaluation is limited without IV contrast3. Anterior abdominal wall surgical wound. CT Thorax w/o Contrast Result Date: April 24, 2024 Verified By: DestiniJAMIE woodward CLINICAL STATEMENT: IMPRESSION: Right lower lobe consolidation with moderate bilateral effusions. Coronary ASVD. XR Chest 1 View Result Date: April 22, 2024 Verified By: MILVIA CALI MD CLINICAL STATEMENT: IMPRESSION: 1. Increased bilateral perihilar, right infrahilar and lateral right lowerlobe hazinessand indistinct pulmonary vessels. Considerations includepulmonary edema and pneumonia.2. Interval removal of a right IJ central venous catheter.. XR Chest 1 View Result Date: April 20, 2024 Verified By: ANTONIO LINDSEY MD CLINICAL STATEMENT: IMPRESSION: 1. Status post extubation and removal of enteric tube.2. Small bilateral pleural effusions with mild basilar atelectasis. XR Chest 1 View Result Date: 2024 Verified By: ISAÍAS SANTANA MD CLINICAL STATEMENT: IMPRESSION: Endotracheal tube tip approximately 5.3 cm above the elena. Other lifesupport devices as above. No significant interval change from the prior study. I have personally reviewed the imagesof this examination and agree with theresident's findings and interpretation. XR Chest 1 View Result Date: 2024 Verified By: ANTONIO LINDSEY MD CLINICAL STATEMENT: IMPRESSION: No significant interval change. I have personally reviewed the images of this examination, and agree with theresident's findings and interpretation. XR Chest 1 View Result Date: April 16, 2024 Verified By: ANTONIO LINDSEY MD CLINICAL STATEMENT: IMPRESSION: Interval placement of a right-sided central venous catheter with tipprojecting over themid to lower SVC. Other support devices as above. Otherwise no significant interval change. Preliminary Report was Dictated by a Resident XR Enteric Tube Placement Result Date: April 16, 2024 Verified By: ANTONIO LINDSEY MD CLINICAL STATEMENT: IMPRESSION: 1. Endotracheal tube and enteric tube are in satisfactory position.2. Increasing left basilar atelectasis. XR Chest 1 View Result Date: April 16, 2024 Verified By: ANTONIO LINDSEY MD CLINICAL STATEMENT: IMPRESSION: 1. Endotracheal tube and enteric tube are in satisfactory position.2. Increasing left basilar atelectasis. EKG No qualifying data available. Assessment/Plan 1. Acute respiratory failure 2. Septic shock 3. Claire gangrene 4. GENE (acute kidney injury) 5. Diabetes mellitus 6. Anemia 7. A-fib 8. 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 Patient has been weaned to room air. Has been to the OR twice for debridement. Urology and ID involved as well as plastics who is recommending local wound care. ID recommending cefdinir, zyvox, and minocycline on discharge. Patient reevaluated today by Dr. Morales and urology, recommendations are to have a additional I&D on Sunday with Dr. Morales. Nephrology involved for GENE creatinine baseline around 2.6. Creatinine is better than baseline at 1.9, continue p.o. Bumex. Cardiology involved for atrial fibrillation and acute on chronic systolic heart failure. Echocardiogram completed showed EF of 25 to 30%, dialysis dysfunction present. Continue with metoprolol, amiodarone (for one week total), apixaban. Will need outpatient follow-up for ischemic evaluation once acute issues have resolved. Continue goal-directed medical therapy. Continue dose losartan. GI-involved for hematochezia and anemia. Patient developed an episode of hematochezia after being started on heparin drip. Hemoglobin has remained stable. Underwent flex sigmoid found to have a 2 cm ulcer in the rectum with no active bleeding. Recommend to avoid constipation and recommend colonoscopy outpatient in 6 weeks. Patient reports he is moving his bowels. Diabetes mellitus continue glycemic regimen. Will resume patient's long-acting insulin as glucose remains elevated. PT OT recommending inpatient rehab, Patient agreeable, awaiting arrangements, pre-CERT still pending as discussed with social media developer today. Discussed w/ Dr. Love Time Spent A total of 35 minutes reviewing patient's diagnostic, labs/tests, seeing and examining the patient and documenting in the medical record, please see assessment for further details. Digitally Signed by MY DUTTON on 05/03/2024 01:[address] 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 ID is following, treated with linezolid and meropenem , Wound culture positive for group beta-hemolytic strep and Serratia marcescens, staph epi, lactobacillus gasseri, and enterococcus. Recommending a course of cefdinir Zyvox and minocycline on discharge. Wound care following, recommending local wound treatments. Patient developed A-fib with RVR for which cardiology is involved. Echocardiogram showed EF systolic functionseverely reduced with an EF of 25 to 30%. Diastolic dysfunction present. Currently being treated with amiodarone, metoprolol and apixaban. Recommending ischemic evaluation once acute complaints are resolved, follow-up with cardiology outpatient. Nephrology following and managing diuretics. Patient was skilled by physical and Occupational Therapy, patient is agreeable to SNF awaiting pre-CERT. Patient was reevaluated by urology and plastics, recommendation is to undergo additional debridement onMonday with Dr. Morales. Patient seen and evaluated today. Continues to complain about being hospitalized still. States he is going stir crazy. Objective Vitals and Measurements T: 36.7 C (Oral) TMIN: 36.7 C (Oral) TMAX: 36.9 C (Oral) HR: 78 RR: 16 BP: 141/81 SpO2: 96% Intake and Output 7AM Yesterday to 7AM Today Intake and Output (Last 24 hours) Intake Oral Intake 1340.00 Supplement Intake 0.00 Output Urinary Catheter Output: 2750.00 Stool Count 0.00 Total Summary Total Intake 1340.00 Total Output 2750.00 Fluid Balance -1410.00 Physical Exam Constitutional: Patient is alert and oriented x3. In no acute distress. ENT: hearing grossly intact, mucous membranes moist, Respiratory: Breathing nonlabored, lungs clear to auscultation bilaterally. Heart: Regular rate and rhythm. S1 S2 heard. GI: Bowel sounds x4 quadrants. No rebound tenderness or guarding. Neuro: speech clear. MIRZA equally. memory intact Skin: no rashes or lesions noted. skin warm, dry Weight Dosing Weight: 125 kg (04/22/24) Medications Medications (24) Active Scheduled: (18) amiodarone 200 mg tablet 400 mg 2 tab(s), Oral, qDayM amLODIPine 10 mg tablet 10 mg 1 tab(s), Oral, qDay bacitracin topical 500 units/g Ointment TUBE 1 artemio, Topical, BID bumetanide 1 mg tablet 1 mg 1 tab(s), Oral, BID cefdinir 300 mg Capsule 300 mg 1 cap(s), Oral, BID emollients (Eucerin Cream) 30gm 1 artemio, Topical, BID insulin glargine 30 unit(s) 0.3 mL, Subcutaneous (INT), qHS insulin isophane human recombinant 100 units/ml (10 mL) Inj 8 unit(s) 0.08 mL, Subcutaneous, TIDAC insulin lispro 100 units/mL Soln (3 mL) Give 0-10 units/dose, Subcutaneous, achs lidocaine patch REMOVAL 1 EA, Miscellaneous, q24h lidocaine topical 4% patch 1 patch(es), Transdermal, q24h linezolid 600 mg tablet 600 mg 1 tab(s), Oral, BID losartan 25 mg tablet 25 mg 1 tab(s), Oral, qDay menthol-zinc oxide topical ointment 4oz 1 artemio, Topical, amhs metoprolol succinate 100 mg ER tablet 100 mg 1 tab(s), Oral, BID minocycline 100 mg Capsule 100 mg 1 cap(s), Oral, q12h omeprazole [address] capsule 40 mg 1 cap(s), Oral, BIDAC sodium hypochlorite topical 0.25% Soln 1 artemio, Topical, BID Continuous: (0) PRN: (6) albuterol - ipratropium 2.5 mg-0.5 mg/3 mL Inhal Elena UD 3 mL, Inhalation, q2hRT dextrose 50% Solution Disp syringe 50 mL 12.5 gram(s) 25 mL, IV Push, AsDirected HYDROmorphone 0.5 mg/0.5 mL PF syringe 0.2 mg 0.2 mL, IV Push, q3h menthol-zinc oxide topical ointment 4oz 1 artemio, Topical, BID metoprolol 1 mg/mL (5mL) vial 10 mg 10 mL, IV Push, q6h ondansetron 2 mg/ 1 mL 2 mL INJ 4 mg 2 mL, IV Push, q6h Lab Results 05/03 04:41 WBC: 8.5 Hgb: 10.1 L Hct: 29.9 L Platelet: 334 Neutrophil %: 68.9 Glucose Level: 185 H Sodium Level: 139 Potassium Level: 4.0 BUN: 42.0 H Creatinine Lvl (s): 1.97 H 05/02 04:48 WBC: 8.6 Hgb: 9.6 L Hct: 29.0 L Platelet: 383 Neutrophil %: 71.2 Glucose Level: 166 H Sodium Level: 139 Potassium Level: 3.8 BUN: 41.0 H Creatinine Lvl (s): 2.14 H Imaging Results and Diagnostics XR Chest 1 View Result Date: April 28, 2024 Verified By: ANTONIO LINDSEY MD CLINICAL STATEMENT: IMPRESSION: 1. Improving bilateral lung infiltrates.2. Small bilateral pleural effusions. XR Chest 1 View Result Date: April 27, 2024 Verified By: KELVIN DOLL DO CLINICAL STATEMENT: IMPRESSION: Congestive failure, progressed when compared to prior examination. CT Abdomen/Pelvis w/o Contrast Result Date: April 24, 2024 Verified By: Contributor_system, [employer] CLINICAL STATEMENT: IMPRESSION: 1. Right lower lobe consolidation with moderate bilateral effusions.2. No acute intra-pathology however evaluation is limited without IV contrast3. Anterior abdominal wall surgical wound. CT Thorax w/o Contrast Result Date: April 24, 2024 Verified By: Contributor_system, [employer] CLINICAL STATEMENT: IMPRESSION: Right lower lobe consolidation with moderate bilateral effusions. Coronary ASVD. XR Chest 1 View Result Date: April 22, 2024 Verified By: MILVIA CALI MD CLINICAL STATEMENT: IMPRESSION: 1. Increased bilateral perihilar, right infrahilar and lateral right lowerlobe hazinessand indistinct pulmonary vessels. Considerations includepulmonary edema and pneumonia.2. Interval removal of a right IJ central venous catheter.. XR Chest 1 View Result Date: April 20, 2024 Verified By: ANTONIO LINDSEY MD CLINICAL STATEMENT: IMPRESSION: 1. Status post extubation and removal of enteric tube.2. Small bilateral pleural effusions with mild basilar atelectasis. XR Chest 1 View Result Date: 2024 Verified By: ISAÍAS SANTANA MD CLINICAL STATEMENT: IMPRESSION: Endotracheal tube tip approximately 5.3 cm above the elena. Other lifesupport devices as above. No significant interval change from the prior study. I have personally reviewed the imagesof this examination and agree with theresident's findings and interpretation. XR Chest 1 View Result Date: 2024 Verified By: ANTONIO LINDSEY MD CLINICAL STATEMENT: IMPRESSION: No significant interval change. I have personally reviewed the images of this examination, and agree with theresident's findings and interpretation. XR Chest 1 View Result Date: April 16, 2024 Verified By: ANTONIO LINDSEY MD CLINICAL STATEMENT: IMPRESSION: Interval placement of a right-sided central venous catheter with tipprojecting over themid to lower SVC. Other support devices as above. Otherwise no significant interval change. Preliminary Report was Dictated by a Resident XR Enteric Tube Placement Result Date: April 16, 2024 Verified By: ANTONIO LINDSEY MD CLINICAL STATEMENT: IMPRESSION: 1. Endotracheal tube and enteric tube are in satisfactory position.2. Increasing left basilar atelectasis. XR Chest 1 View Result Date: April 16, 2024 Verified By: ANTONIO LINDSEY MD CLINICAL STATEMENT: IMPRESSION: 1. Endotracheal tube and enteric tube are in satisfactory position.2. Increasing left basilar atelectasis. EKG No qualifying data available. Assessment/Plan 1. Acute respiratory failure 2. Septic shock 3. Claire gangrene 4. GENE (acute kidney injury) 5. Diabetes mellitus 6. Anemia 7. A-fib 8. 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 Patient has been weaned to room air. Has been to the OR twice for debridement. Urology and ID involved as well as plastics who is recommending local wound care. ID recommending cefdinir, zyvox, and minocycline on discharge. Patient reevaluated today by Dr. Morales and urology, recommendations are to have a additional I&D on Sunday with Dr. Morales. Nephrology involved for GENE creatinine baseline around 2.6. Creatinine is better than baseline at 1.9, continue p.o. Bumex. Cardiology involved for atrial fibrillation and acute on chronic systolic heart failure. Echocardiogram completed showed EF of 25 to 30%, dialysis dysfunction present. Continue with metoprolol, amiodarone (for one week total), apixaban. Will need outpatient follow-up for ischemic evaluation once acute issues have resolved. Continue goal-directed medical therapy. Continue dose losartan. GI-involved for hematochezia and anemia. Patient developed an episode of hematochezia after being started on heparin drip. Hemoglobin has remained stable. Underwent flex sigmoid found to have a 2 cm ulcer in the rectum with no active bleeding. Recommend to avoid constipation and recommend colonoscopy outpatient in 6 weeks. Patient reports he is moving his bowels. Diabetes mellitus continue glycemic regimen. Will resume patient's long-acting insulin as glucose remains elevated. PT OT recommending inpatient rehab, Patient agreeable, awaiting arrangements, pre-CERT still pending as discussed with social media developer today. Discussed w/ Dr. Love Time Spent A total of 35 minutes reviewing patient's diagnostic, labs/tests, seeing and examining the patient and documenting in the medical record, please see assessment for further details. Digitally Signed by MY DUTTON on 05/03/2024 01:[address] [facility] [id number] Nephrology Progress note Subjective Seen and examined resting comfortably. Chart was reviewed. Discussed with nursing. Objective Vitals and Measurements T: 36.9 C (Oral) TMIN: 36.7 C (Oral) TMAX: 37.0 C (Oral) HR: 70 (Apical) RR: 18 BP: 152/87 SpO2: 94% Intake and Output 7AM Yesterday to 7AM Today Intake and Output (Last 24 hours) Intake Oral Intake 1340.00 Supplement Intake 0.00 Output Urinary Catheter Output: 2350.00 Stool Count 0.00 Total Summary Total Intake 1340.00 Total Output 2350.00 Fluid Balance -1010.00 Physical Exam General: No distress on room air HEENT: Mucosa was moist, sclera anicteric, extraocular muscles intact, JVD present Lungs: Clear bilaterally with no crackles wheezes or rhonchi Heart: Regular Abdomen: Positive bowel sounds, soft, no palpable masses : Hernandez catheter in place Extremities: trace edema, pulses 2+ in all 4 extremities Skin: No rashes, normal turgor [1] Weight Dosing Weight: 125 kg (04/22/24) Medications Medications (25) Active Scheduled: (19) amiodarone 200 mg tablet 400 mg 2 tab(s), Oral, qDayM amLODIPine 10 mg tablet 10 mg 1 tab(s), Oral, qDay apixaban 5 mg tablet 5 mg 1 tab(s), Oral, BID bacitracin topical 500 units/g Ointment TUBE 1 artemio, Topical, BID bumetanide 1 mg tablet 1 mg 1 tab(s), Oral, BID cefdinir 300 mg Capsule 300 mg 1 cap(s), Oral, BID emollients (Eucerin Cream) 30gm 1 artemio, Topical, BID insulin glargine 30 unit(s) 0.3 mL, Subcutaneous (INT), qHS insulin isophane human recombinant 100 units/ml (10 mL) Inj 8 unit(s) 0.08 mL, Subcutaneous, TIDAC insulin lispro 100 units/mL Soln (3 mL) Give 0-10 units/dose, Subcutaneous, achs lidocaine patch REMOVAL 1 EA, Miscellaneous, q24h lidocaine topical 4% patch 1 patch(es), Transdermal, q24h linezolid 600 mg tablet 600 mg 1 tab(s), Oral, BID losartan 25 mg tablet 25 mg 1 tab(s), Oral, qDay menthol-zinc oxide topical ointment 4oz 1 artemio, Topical, amhs metoprolol succinate 100 mg ER tablet 100 mg 1 tab(s), Oral, BID minocycline 100 mg Capsule 100 mg 1 cap(s), Oral, q12h omeprazole [address] capsule 40 mg 1 cap(s), Oral, BIDAC sodium hypochlorite topical 0.25% Soln 1 artemio, Topical, BID Continuous: (0) PRN: (6) albuterol - ipratropium 2.5 mg-0.5 mg/3 mL Inhal Elena UD 3 mL, Inhalation, q2hRT dextrose 50% Solution Disp syringe 50 mL 12.5 gram(s) 25 mL, IV Push, AsDirected HYDROmorphone 0.5 mg/0.5 mL PF syringe 0.2 mg 0.2 mL, IV Push, q3h menthol-zinc oxide topical ointment 4oz 1 artemio, Topical, BID metoprolol 1 mg/mL (5mL) vial 10 mg 10 mL, IV Push, q6h ondansetron 2 mg/ 1 mL 2 mL INJ 4 mg 2 mL, IV Push, q6h Lab Results 05/03 04:41 WBC: 8.5 Hgb: 10.1 L Hct: 29.9 L Platelet: 334 Neutrophil %: 68.9 Glucose Level: 185 H Sodium Level: 139 Potassium Level: 4.0 BUN: 42.0 H Creatinine Lvl (s): 1.97 H 05/02 04:48 WBC: 8.6 Hgb: 9.6 L Hct: 29.0 L Platelet: 383 Neutrophil %: 71.2 Glucose Level: 166 H Sodium Level: 139 Potassium Level: 3.8 BUN: 41.0 H Creatinine Lvl (s): 2.14 H EKG No qualifying data available. Assessment/Plan A-fib Acute respiratory failure GENE (acute kidney injury) Anemia Diabetes mellitus Claire gangrene Obesity Septic shock 1. Acute kidney injury with underlying chronic kidney disease stage IV baseline 2.6 2. 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 Septic shock now resolved 4. Atrial fibrillation 5. Anemia 6. Congestive heart failure From a renal perspective renal function is stable at baseline. Urine output is adequate. Volume status stable maintain current diuresis. Disposition as per primary service. Follow labs. See orders. [1] Progress Note; GABRIELA LOTT MD 05/02/2024 08:23 EDT Digitally Signed by DAMARI FATIMA MD on 05/03/2024 10:[address] 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 Subjective Some slough and necrotic tissue present requiring surgical debridement Objective Vitals and Measurements T: 36.8 C (Oral) TMIN: 36.8 C (Oral) TMAX: 37.0 C (Oral) HR: 76 RR: 16 BP: 145/98 SpO2: 93% The patient today he has an open wound from the pubis all the way down to the scrotum including theskin of the penis and scrotum and testicle on the right side patient has some slough present which is not completely gone and require some surgical debridement Intake and Output 7AM Yesterday to 7AM Today Intake and Output (Last 24 hours) Intake Oral Intake 690.00 Output Urinary Catheter Output: 2775.00 Stool Count 0.00 Total Summary Total Intake 690.00 Total Output 2775.00 Fluid Balance -2085.00 Physical Exam Weight Dosing Weight: 125 kg (04/22/24) Medications Medications (24) Active Scheduled: (18) amiodarone 200 mg tablet 400 mg 2 tab(s), Oral, qDayM amLODIPine 10 mg tablet 10 mg 1 tab(s), Oral, qDay apixaban 5 mg tablet 5 mg 1 tab(s), Oral, BID bacitracin topical 500 units/g Ointment TUBE 1 artemio, Topical, BID bumetanide 1 mg tablet 1 mg 1 tab(s), Oral, BID cefdinir 300 mg Capsule 300 mg 1 cap(s), Oral, BID emollients (Eucerin Cream) 30gm 1 artemio, Topical, BID epoetin anastasiya epbx 10,000 units/mL (pf) vial - NEPH 10,000 unit(s) 1 mL, Subcutaneous, Once insulin isophane human recombinant 100 units/ml (10 mL) Inj 8 unit(s) 0.08 mL, Subcutaneous, TIDAC insulin lispro 100 units/mL Soln (3 mL) Give 0-10 units/dose, Subcutaneous, achs lidocaine patch REMOVAL 1 EA, Miscellaneous, q24h lidocaine topical 4% patch 1 patch(es), Transdermal, q24h linezolid 600 mg tablet 600 mg 1 tab(s), Oral, BID menthol-zinc oxide topical ointment 4oz 1 artemio, Topical, amhs metoprolol succinate 100 mg ER tablet 100 mg 1 tab(s), Oral, BID minocycline 100 mg Capsule 100 mg 1 cap(s), Oral, q12h omeprazole [address] capsule 40 mg 1 cap(s), Oral, BIDAC sodium hypochlorite topical 0.25% Soln 1 artemio, Topical, BID Continuous: (0) PRN: (6) albuterol - ipratropium 2.5 mg-0.5 mg/3 mL Inhal Elena UD 3 mL, Inhalation, q2hRT dextrose 50% Solution Disp syringe 50 mL 12.5 gram(s) 25 mL, IV Push, AsDirected HYDROmorphone 0.5 mg/0.5 mL PF syringe 0.2 mg 0.2 mL, IV Push, q3h menthol-zinc oxide topical ointment 4oz 1 artemio, Topical, BID metoprolol 1 mg/mL (5mL) vial 10 mg 10 mL, IV Push, q6h ondansetron 2 mg/ 1 mL 2 mL INJ 4 mg 2 mL, IV Push, q6h Lab Results 05/02 04:48 WBC: 8.6 Hgb: 9.6 L Hct: 29.0 L Platelet: 383 Neutrophil %: 71.2 Glucose Level: 166 H Sodium Level: 139 Potassium Level: 3.8 BUN: 41.0 H Creatinine Lvl (s): 2.14 H 05/01 04:19 WBC: 7.9 Hgb: 9.4 L Hct: 27.8 L Platelet: 430 Neutrophil %: 69.2 Glucose Level: 207 H Sodium Level: 137 Potassium Level: 3.5 BUN: 41.0 H Creatinine Lvl (s): 2.18 H EKG No qualifying data available. Assessment/Plan A-fib Acute respiratory failure GNEE (acute kidney injury) Anemia Diabetes mellitus Claire gangrene Obesity Septic shock Orders: Kerlix Soft Bandage (26040), 05/02/24 11:08:00 EDT, Stat, Quantity 4, Weight: 125, 05/02/24 11:08:00 EDT I plan to do surgical debridement on Sunday at 9:30 in the morning in the operating room I would recommend a surgical clearance from the medical service. Patient can be discharged to a long-term. Digitally Signed by FRANCESCA PARNELL MD on 05/02/2024 11:[address] [id number] Urology Progress note Date of Service 05/02/2024 Chief Complaint fourniers Subjective Pt comfortable. wounds slowly healing. testicles in open. eschar present. Objective Vitals and Measurements T: 36.8 C (Oral) TMIN: 36.8 C (Oral) TMAX: 37.0 C (Oral) HR: 76 RR: 16 BP: 145/98 SpO2: 93% Intake and Output 7AM Yesterday to 7AM Today Intake and Output (Last 24 hours) Intake Oral Intake 690.00 Output Urinary Catheter Output: 2775.00 Stool Count 0.00 Total Summary Total Intake 690.00 Total Output 2775.00 Fluid Balance -2084.00 Physical Exam Open wounds to scrotum and penis. no evidence of abcess. Weight Dosing Weight: 125 kg (04/22/24) Medications Medications (24) Active Scheduled: (18) amiodarone 200 mg tablet 400 mg 2 tab(s), Oral, qDayM amLODIPine 10 mg tablet 10 mg 1 tab(s), Oral, qDay apixaban 5 mg tablet 5 mg 1 tab(s), Oral, BID bacitracin topical 500 units/g Ointment TUBE 1 artemio, Topical, BID bumetanide 1 mg tablet 1 mg 1 tab(s), Oral, BID cefdinir 300 mg Capsule 300 mg 1 cap(s), Oral, BID emollients (Eucerin Cream) 30gm 1 artemio, Topical, BID epoetin anastasiya epbx 10,000 units/mL (pf) vial - NEPH 10,000 unit(s) 1 mL, Subcutaneous, Once insulin isophane human recombinant 100 units/ml (10 mL) Inj 8 unit(s) 0.08 mL, Subcutaneous, TIDAC insulin lispro 100 units/mL Soln (3 mL) Give 0-10 units/dose, Subcutaneous, achs lidocaine patch REMOVAL 1 EA, Miscellaneous, q24h lidocaine topical 4% patch 1 patch(es), Transdermal, q24h linezolid 600 mg tablet 600 mg 1 tab(s), Oral, BID menthol-zinc oxide topical ointment 4oz 1 artemio, Topical, amhs metoprolol succinate 100 mg ER tablet 100 mg 1 tab(s), Oral, BID minocycline 100 mg Capsule 100 mg 1 cap(s), Oral, q12h omeprazole [address] capsule 40 mg 1 cap(s), Oral, BIDAC sodium hypochlorite topical 0.25% Soln 1 artemio, Topical, BID Continuous: (0) PRN: (6) albuterol - ipratropium 2.5 mg-0.5 mg/3 mL Inhal Elena UD 3 mL, Inhalation, q2hRT dextrose 50% Solution Disp syringe 50 mL 12.5 gram(s) 25 mL, IV Push, AsDirected HYDROmorphone 0.5 mg/0.5 mL PF syringe 0.2 mg 0.2 mL, IV Push, q3h menthol-zinc oxide topical ointment 4oz 1 artemio, Topical, BID metoprolol 1 mg/mL (5mL) vial 10 mg 10 mL, IV Push, q6h ondansetron 2 mg/ 1 mL 2 mL INJ 4 mg 2 mL, IV Push, q6h Lab Results 05/02 04:48 WBC: 8.6 Hgb: 9.6 L Hct: 29.0 L Platelet: 383 Neutrophil %: 71.2 Glucose Level: 166 H Sodium Level: 139 Potassium Level: 3.8 BUN: 41.0 H Creatinine Lvl (s): 2.14 H 05/01 04:19 WBC: 7.9 Hgb: 9.4 L Hct: 27.8 L Platelet: 430 Neutrophil %: 69.2 Glucose Level: 207 H Sodium Level: 137 Potassium Level: 3.5 BUN: 41.0 H Creatinine Lvl (s): 2.18 H EKG No qualifying data available. Assessment/Plan A-fib Acute respiratory failure GENE (acute kidney injury) Anemia Diabetes mellitus Claire gangrene Plastics to do debridement on sunday. No acute abcess. Obesity Septic shock Tinea cruris - recommend antifungal powder to groin areas. Digitally Signed by RUBY GEE MD on 05/02/2024 11:[address] [facility] [id number] Nephrology Progress note Date of Service May 02, 2024 Subjective No complaints. Slept fair. Good appetite. No pain. No shortness of breath on room air Objective Vitals and Measurements T: 37.0 C (Oral) TMIN: 36.8 C (Oral) TMAX: 37 C (Oral) HR: 75 RR: 18 BP: 152/88 SpO2: 94% Intake and Output 7AM Yesterday to 7AM Today Intake and Output (Last 24 hours) Intake Oral Intake 690.00 Supplement Intake 0.00 Output Urinary Catheter Output: 2775.00 Stool Count 0.00 Total Summary Total Intake 690.00 Total Output 2775.00 Fluid Balance -2084.00 Physical Exam General: No distress on room air HEENT: Mucosa was moist, sclera anicteric, extraocular muscles intact, JVD present Lungs: Clear bilaterally with no crackles wheezes or rhonchi Heart: Regular Abdomen: Positive bowel sounds, soft, no palpable masses : Hrenandez catheter in place Extremities: trace edema, pulses 2+ in all 4 extremities Skin: No rashes, normal turgor Weight Dosing Weight: 125 kg (04/22/24) Medications Medications (24) Active Scheduled: (18) amiodarone 200 mg tablet 400 mg 2 tab(s), Oral, qDayM amLODIPine 10 mg tablet 10 mg 1 tab(s), Oral, qDay apixaban 5 mg tablet 5 mg 1 tab(s), Oral, BID bacitracin topical 500 units/g Ointment TUBE 1 artemio, Topical, BID bumetanide 1 mg tablet 1 mg 1 tab(s), Oral, BID cefdinir 300 mg Capsule 300 mg 1 cap(s), Oral, BID emollients (Eucerin Cream) 30gm 1 artemio, Topical, BID insulin isophane human recombinant 100 units/ml (10 mL) Inj 8 unit(s) 0.08 mL, Subcutaneous, TIDAC insulin lispro 100 units/mL Soln (3 mL) Give 0-10 units/dose, Subcutaneous, achs lidocaine patch REMOVAL 1 EA, Miscellaneous, q24h lidocaine topical 4% patch 1 patch(es), Transdermal, q24h linezolid 600 mg tablet 600 mg 1 tab(s), Oral, BID magnesium sulfate 4 gram(s)/100mL PMX 4 gram(s) 100 mL, IV Piggyback, Once menthol-zinc oxide topical ointment 4oz 1 artemio, Topical, amhs metoprolol succinate 100 mg ER tablet 100 mg 1 tab(s), Oral, BID minocycline 100 mg Capsule 100 mg 1 cap(s), Oral, q12h omeprazole [address] capsule 40 mg 1 cap(s), Oral, BIDAC sodium hypochlorite topical 0.25% Soln 1 artemio, Topical, BID Continuous: (0) PRN: (6) albuterol - ipratropium 2.5 mg-0.5 mg/3 mL Inhal Elena UD 3 mL, Inhalation, q2hRT dextrose 50% Solution Disp syringe 50 mL 12.5 gram(s) 25 mL, IV Push, AsDirected HYDROmorphone 0.5 mg/0.5 mL PF syringe 0.2 mg 0.2 mL, IV Push, q3h menthol-zinc oxide topical ointment 4oz 1 artemio, Topical, BID metoprolol 1 mg/mL (5mL) vial 10 mg 10 mL, IV Push, q6h ondansetron 2 mg/ 1 mL 2 mL INJ 4 mg 2 mL, IV Push, q6h Lab Results 05/02 04:48 WBC: 8.6 Hgb: 9.6 L Hct: 29.0 L Platelet: 383 Neutrophil %: 71.2 Glucose Level: 166 H Sodium Level: 139 Potassium Level: 3.8 BUN: 41.0 H Creatinine Lvl (s): 2.14 H 05/01 04:19 WBC: 7.9 Hgb: 9.4 L Hct: 27.8 L Platelet: 430 Neutrophil %: 69.2 Glucose Level: 207 H Sodium Level: 137 Potassium Level: 3.5 BUN: 41.0 H Creatinine Lvl (s): 2.18 H EKG No qualifying data available. Assessment/Plan 1. Chronic kidney disease stage IV: Baseline creatinine approximately 2.6. Currently at or better than baseline. Urine output excellent with PO diuretics. No change in creatinine despite negative I'sand O's. 2. 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 Blood pressure currently stable. Remains on broad-spectrum antibiotics including linezolid and cefdinir. He is status post debridement 3. Hypomagnesemia: Will replace. 4. Atrial flutter: Now in sinus rhythm with a rate in the 70s. He is now off diltiazem. On oral amiodarone. 5. Anemia: In part due to chronic kidney disease as well as infectious process. Dose with Retacrit today 6. Heart failure with reduced ejection fraction: Diuretics changed to p.o. Good urine output. Continue oral Bumex. 7. Disposition: Okay to discharge Digitally Signed by GABRIELA LOTT MD on 05/02/2024 08:30 AM Digitally Signed by GABRIELA LOTT MD on 05/02/2024 08:[address] [facility] [id number] Progress note Date of Service May 01, 2024 Chief Complaint Fourniers disease groin involvement penis pubis and scrotal area Diabetes mellitus type 2 Obesity Subjective Patient had 2 previous debridement she still have a lot of slough present on the pubis area which is also have muscular slough penis is denuded of skin and scrotum has some exposed testicles Objective Vitals and Measurements T: 37 C (Oral) TMIN: 36.8 C (Oral) TMAX: 37 C (Oral) HR: 76 (Apical) RR: 16 BP: 154/85 SpO2: 95% Wound was thoroughly examined today there is large amount of slough present on the incision which was done on the pubic area which is and also the penis has no skin but it is showing some evidence ofhealing may require some skin grafting procedure at a later time there is evidence of thick slough present on the right testicle which could be known to salvageable right testicle has very thick scab present evidence of any pus or infection noticed. Left testicle appears to be intact and is coveredwith some soft tissues there is an area of slough still present. Intake and Output 7AM Yesterday to 7AM Today Intake and Output (Last 24 hours) Intake Oral Intake 910.00 Supplement Intake 0.00 Output Urinary Catheter Output: 3900.00 Stool Count 0.00 Total Summary Total Intake 910.00 Total Output 3900.00 Fluid Balance -2990.00 Physical Exam Weight Dosing Weight: 125 kg (04/22/24) Medications Medications (22) Active Scheduled: (16) amiodarone 200 mg tablet 400 mg 2 tab(s), Oral, qDayM apixaban 5 mg tablet 5 mg 1 tab(s), Oral, BID bacitracin topical 500 units/g Ointment TUBE 1 artemio, Topical, BID bumetanide 1 mg tablet 1 mg 1 tab(s), Oral, BID cefdinir 300 mg Capsule 300 mg 1 cap(s), Oral, BID emollients (Eucerin Cream) 30gm 1 artemio, Topical, BID insulin isophane human recombinant 100 units/ml (10 mL) Inj 8 unit(s) 0.08 mL, Subcutaneous, TIDAC insulin lispro 100 units/mL Soln (3 mL) Give 0-10 units/dose, Subcutaneous, achs lidocaine patch REMOVAL 1 EA, Miscellaneous, q24h lidocaine topical 4% patch 1 patch(es), Transdermal, q24h linezolid 600 mg tablet 600 mg 1 tab(s), Oral, BID menthol-zinc oxide topical ointment 4oz 1 artemio, Topical, amhs metoprolol succinate 100 mg ER tablet 100 mg 1 tab(s), Oral, BID minocycline 100 mg Capsule 100 mg 1 cap(s), Oral, q12h omeprazole [address] capsule 40 mg 1 cap(s), Oral, BIDAC sodium hypochlorite topical 0.25% Soln 1 artemio, Topical, BID Continuous: (0) PRN: (6) albuterol - ipratropium 2.5 mg-0.5 mg/3 mL Inhal Elena UD 3 mL, Inhalation, q2hRT dextrose 50% Solution Disp syringe 50 mL 12.5 gram(s) 25 mL, IV Push, AsDirected HYDROmorphone 0.5 mg/0.5 mL PF syringe 0.2 mg 0.2 mL, IV Push, q3h menthol-zinc oxide topical ointment 4oz 1 artemio, Topical, BID metoprolol 1 mg/mL (5mL) vial 10 mg 10 mL, IV Push, q6h ondansetron 2 mg/ 1 mL 2 mL INJ 4 mg 2 mL, IV Push, q6h Lab Results 05/01 04:19 WBC: 7.9 Hgb: 9.4 L Hct: 27.8 L Platelet: 430 Neutrophil %: 69.2 Glucose Level: 207 H Sodium Level: 137 Potassium Level: 3.5 BUN: 41.0 H Creatinine Lvl (s): 2.18 H 04/30 04:27 WBC: 11.0 H Hgb: 9.1 L Hct: 27.1 L Platelet: 476 H Neutrophil %: 73.0 Glucose Level: 148 H Glucose Level: 148 H Sodium Level: 137 Sodium Level: 137 Potassium Level: 4.0 Potassium Level: 4.0 BUN: 46.0 H BUN: 46.0 H Creatinine Lvl (s): 2.39 H Creatinine Lvl (s): 2.39 H EKG No qualifying data available. Assessment/Plan A-fib Acute respiratory failure GENE (acute kidney injury) Anemia Diabetes mellitus Claire gangrene Obesity Septic shock Believe the patient does need additional debridement specially by the urologist so that the feet ofthe rest checked Stickles will be evaluated by them since after thorough debridement and he may notbe salvageable. The left testicle is appears to be intact there is some evidence of skin scrotal skin still present presently patient is getting dressings with Adaptic and Dakin's solution which keeps the wound clean. Digitally Signed by FRANCESCA PARNELL MD on 05/01/2024 11:[address] [facility] [facility] [id number] Infectious disease Progress note Subjective Patient seen and examined labs and notes reviewed no new complaints Patient has remained afebrile the past 24 hours LFTs are mildly elevated yesterday. No change in creatinine-nephrology is following. No cytosis. Intake and Output 7AM Yesterday to 7AM Today Intake and Output (Last 24 hours) Intake Oral Intake 440.00 Supplement Intake 0.00 Output Urinary Catheter Output: 2650.00 Stool Count 2.00 Total Summary Total Intake 440.00 Total Output 2650.00 Fluid Balance -2210.00 Physical Exam Scrotal and genital area and perineal area with no purulence and no bleeding Awake alert oriented Lungs are clear Heart is in regular rhythm Abdomen soft with no tenderness Scrotal area and genital area has much improved clinically with less erythema as above Weight Dosing Weight: 125 kg (04/22/24) Medications Medications (21) Active Scheduled: (15) amiodarone 200 mg tablet 400 mg 2 tab(s), Oral, qDayM apixaban 5 mg tablet 5 mg 1 tab(s), Oral, BID bacitracin topical 500 units/g Ointment TUBE 1 artemio, Topical, BID emollients (Eucerin Cream) 30gm 1 artemio, Topical, BID furosemide 40 mg/4 mL vial 40 mg 4 mL, IV Push, q8h insulin isophane human recombinant 100 units/ml (10 mL) Inj 8 unit(s) 0.08 mL, Subcutaneous, TIDAC insulin lispro 100 units/mL Soln (3 mL) Give 0-10 units/dose, Subcutaneous, achs lidocaine patch REMOVAL 1 EA, Miscellaneous, q24h lidocaine topical 4% patch 1 patch(es), Transdermal, q24h linezolid 600 mg 300 mL, IV Piggyback, q12h menthol-zinc oxide topical ointment 4oz 1 artemio, Topical, amhs meropenem 1,000 mg, IV Piggyback, q12h metoprolol succinate 100 mg ER tablet 100 mg 1 tab(s), Oral, BID omeprazole [address] capsule 40 mg 1 cap(s), Oral, BIDAC sodium hypochlorite topical 0.25% Soln 1 artemio, Topical, BID Continuous: (0) PRN: (6) albuterol - ipratropium 2.5 mg-0.5 mg/3 mL Inhal Elena UD 3 mL, Inhalation, q2hRT dextrose 50% Solution Disp syringe 50 mL 12.5 gram(s) 25 mL, IV Push, AsDirected HYDROmorphone 0.5 mg/0.5 mL PF syringe 0.2 mg 0.2 mL, IV Push, q3h menthol-zinc oxide topical ointment 4oz 1 artemio, Topical, BID metoprolol 1 mg/mL (5mL) vial 10 mg 10 mL, IV Push, q6h ondansetron 2 mg/ 1 mL 2 mL INJ 4 mg 2 mL, IV Push, q6h Lab Results 04/30 04:27 WBC: 11.0 H Hgb: 9.1 L Hct: 27.1 L Platelet: 476 H Neutrophil %: 73.0 Glucose Level: 148 H Glucose Level: 148 H Sodium Level: 137 Sodium Level: 137 Potassium Level: 4.0 Potassium Level: 4.0 BUN: 46.0 H BUN: 46.0 H Creatinine Lvl (s): 2.39 H Creatinine Lvl (s): 2.39 H 04/29 07:27 WBC: 12.6 H Hgb: 9.5 L Hct: 29.2 L Platelet: 502 H Neutrophil %: 72.5 04/29 06:07 Glucose Level: 125 H Sodium Level: 135 L Potassium Level: 4.0 BUN: 38.0 H Creatinine Lvl (s): 2.28 H Imaging Results and Diagnostics Discussed the plan of care at length with patient, he would like to go home as soon as possible, discussed with him the risk and benefit of this approach XR Chest 1 View Result Date: April 28, 2024 Verified By: CÉSAR SOLIS, ANTONIO Harris CLINICAL STATEMENT: IMPRESSION: 1. Improving bilateral lung infiltrates.2. Small bilateral pleural effusions. XR Chest 1 View Result Date: April 27, 2024 Verified By: KELVIN DOLL DO CLINICAL STATEMENT: IMPRESSION: Congestive failure, progressed when compared to prior examination. CT Abdomen/Pelvis w/o Contrast Result Date: April 24, 2024 Verified By: Contributor_systemJAMIE CLINICAL STATEMENT: IMPRESSION: 1. Right lower lobe consolidation with moderate bilateral effusions.2. No acute intra-pathology however evaluation is limited without IV contrast3. Anterior abdominal wall surgical wound. CT Thorax w/o Contrast Result Date: April 24, 2024 Verified By: Contributor_systemJAMIE CLINICAL STATEMENT: IMPRESSION: Right lower lobe consolidation with moderate bilateral effusions. Coronary ASVD. XR Chest 1 View Result Date: April 22, 2024 Verified By: MILVIA CALI MD CLINICAL STATEMENT: IMPRESSION: 1. Increased bilateral perihilar, right infrahilar and lateral right lowerlobe hazinessand indistinct pulmonary vessels. Considerations includepulmonary edema and pneumonia.2. Interval removal of a right IJ central venous catheter.. XR Chest 1 View Result Date: April 20, 2024 Verified By: ANTONIO LINDSEY MD CLINICAL STATEMENT: IMPRESSION: 1. Status post extubation and removal of enteric tube.2. Small bilateral pleural effusions with mild basilar atelectasis. XR Chest 1 View Result Date: 2024 Verified By: ISAÍAS SANTAAN MD CLINICAL STATEMENT: IMPRESSION: Endotracheal tube tip approximately 5.3 cm above the elena. Other lifesupport devices as above. No significant interval change from the prior study. I have personally reviewed the imagesof this examination and agree with theresident's findings and interpretation. XR Chest 1 View Result Date: 2024 Verified By: ANTONIO LINDSEY MD CLINICAL STATEMENT: IMPRESSION: No significant interval change. I have personally reviewed the images of this examination, and agree with theresident's findings and interpretation. XR Chest 1 View Result Date: April 16, 2024 Verified By: ANTONIO LINDSEY MD CLINICAL STATEMENT: IMPRESSION: Interval placement of a right-sided central venous catheter with tipprojecting over themid to lower SVC. Other support devices as above. Otherwise no significant interval change. Preliminary Report was Dictated by a Resident XR Enteric Tube Placement Result Date: April 16, 2024 Verified By: ANTONIO LINDSEY MD CLINICAL STATEMENT: IMPRESSION: 1. Endotracheal tube and enteric tube are in satisfactory position.2. Increasing left basilar atelectasis. XR Chest 1 View Result Date: April 16, 2024 Verified By: ANTONIO LINDSEY MD CLINICAL STATEMENT: IMPRESSION: 1. Endotracheal tube and enteric tube are in satisfactory position.2. Increasing left basilar atelectasis. EKG No qualifying data available. 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 Due to ongoing leukocytosis CT chest abdomenand pelvis has been obtained CT chest shows right lower lobe pneumonia with bilateral pleural effusion. Repeat sputum culture is pending. Patient in interim also developed GI bleed. Patient is afebrile but continues to be in A-fib with RVR and has persistent leukocytosis of 16,000. 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 Tissue cultures obtained 04/16/2024 notable for polymicrobial pathogens including group B strep, Serratia marcescens which is intermediate to Zosyn, staph epi, MRSE, lactobacillus and Enterococcus faecalis which is ampicillin sensitive. Urology evaluated the patient on 04/23/2024 and performed bedside debridement. Plastics on board and following for local wound care #2 GI bleed-patient underwent flexible sigmoidoscopy that showed a rectal ulcer. GI managing. #3 right lower lobe pneumonia with bilateral pleural effusion. Respiratory culture with light Yeast, not Maribell albicans Check LFTS in AM The patient would like to go home as soon as possible, discussed with him the risk and benefit of this approach, genital area is much improved, reviewed labs and data and discussed with patient at length as well as nursing staff Will stop IV antibiotic therapy Will start oral Zyvox, cefdinir and minocycline, if the patient tolerates treatment well then he could be discharged on these antibiotics until May 18, 2024 and see me in the office in 2 to 3 weeks and follow-up with urology closely Please obtain CMP and CBC in 1 week and forward the results to me and urology as well Discussed potential side effects of antibiotic therapy Discussed ways of infection control infection prevention at length in surgical ICU and all his questions were answered Will follow as needed Call for questions I was present for Silva Marrero LPN , and personally directed, all components of the patient's complete evaluation and management documented by the scribe today. I have personally examined the patient and reviewed all diagnostic data. I have reviewed all of this documentation by the scribe. It documents the history obtained, examination performed, diagnostic testing results compiled by him/her,and discharge information. Digitally Signed by Silva Marrero Scribe on 04/30/2024 09:36 AM Digitally Signed by SON STEEL BA, MD on 04/30/2024 05:[address] [facility] [id number] Cardiology Progress note Date of Service 04/29/2024 Subjective Patient lying comfortably in bed. Denies chest pain or shortness of breath Patient was converted to normal sinus them yesterday. ECHO Summary: 1. Left ventricle: The cavity size is increased. Wall thickness is normal. Systolic function is severely reduced. The estimated ejection fraction is 25-30%. Diastolic dysfunction present but unable to assess severity. 2. Mitral valve: The annulus is mildly calcified. The leaflets are mildly thickened. Thickening. 3. Right ventricle: Systolic function is reduced. 4. Right atrium: The estimated right atrial pressure is 15 mm Hg. Objective Vitals and Measurements T: 36.5 C (Oral) HR: 76 (Monitored) RR: 16 BP: 160/93 SpO2: 95% Intake and Output 7AM Yesterday to 7AM Today Intake and Output (Last 24 hours) Intake Administration Information 725.67 Oral Intake 260.00 Supplement Intake 0.00 Output Urinary Catheter Output: 3625.00 Stool Count 1.00 Total Summary Total Intake 985.67 Total Output 3625.00 Fluid Balance -2639.33 Physical Exam General Appearance: Comfortable, not in acute distress HEENT:Bilateral normal eye movements, normal oral cavity Neck: No JVD noted Cardiac: S1, S2, regular rhythm Lungs: No wheezes, normal chest expansion. Abdomen: No tenderness, no distention, normal bowel sounds. Musculoskeletal: No signs of acute synovitis. Neurological: Alert and oriented x3, no focal neurological deficits grossly. Weight Dosing Weight: 125 kg (04/22/24) Medications Medications (19) Active Scheduled: (14) amiodarone 200 mg tablet 400 mg 2 tab(s), Oral, qDayM apixaban 5 mg tablet 5 mg 1 tab(s), Oral, BID bacitracin topical 500 units/g Ointment TUBE 1 artemio, Topical, BID emollients (Eucerin Cream) 30gm 1 artemio, Topical, BID epoetin anastasiya epbx 10,000 units/mL (pf) vial - NEPH 10,000 unit(s) 1 mL, Subcutaneous, Once furosemide 40 mg/4 mL vial 40 mg 4 mL, IV Push, q8h insulin isophane human recombinant 100 units/ml (10 mL) Inj 8 unit(s) 0.08 mL, Subcutaneous, TIDAC insulin lispro 100 units/mL Soln (3 mL) Give 0-10 units/dose, Subcutaneous, achs linezolid 600 mg 300 mL, IV Piggyback, q12h menthol-zinc oxide topical ointment 4oz 1 artemio, Topical, amhs meropenem 1,000 mg, IV Piggyback, q12h metoprolol succinate 100 mg ER tablet 100 mg 1 tab(s), Oral, BID omeprazole [address] capsule 40 mg 1 cap(s), Oral, BIDAC sodium hypochlorite topical 0.25% Soln 1 artemio, Topical, BID Continuous: (0) PRN: (5) albuterol - ipratropium 2.5 mg-0.5 mg/3 mL Inhal Elena UD 3 mL, Inhalation, q2hRT HYDROmorphone 0.5 mg/0.5 mL PF syringe 0.2 mg 0.2 mL, IV Push, q3h menthol-zinc oxide topical ointment 4oz 1 artemio, Topical, BID metoprolol 1 mg/mL (5mL) vial 10 mg 10 mL, IV Push, q6h ondansetron 2 mg/ 1 mL 2 mL INJ 4 mg 2 mL, IV Push, q6h Lab Results 04/29 07:27 WBC: 12.6 H Hgb: 9.5 L Hct: 29.2 L Platelet: 502 H Neutrophil %: 72.5 04/29 06:07 Glucose Level: 125 H Sodium Level: 135 L Potassium Level: 4.0 BUN: 38.0 H Creatinine Lvl (s): 2.28 H 04/28 07:25 Glucose Level: 138 H Sodium Level: 133 L Potassium Level: 4.2 BUN: 49.0 H Creatinine Lvl (s): 2.31 H 04/28 06:19 WBC: 16.9 H Hgb: 9.1 L Hct: 28.3 L Platelet: 561 H Neutrophil %: 74.0 EKG No qualifying data available. 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 He underwent flexible sigmoidoscopy showing solitary rectal ulcer without evidence of recent bleeding. This morning, he is overloaded, in atrial flutter with variable conduction, heart rate improved down to 120, on nasal cannula, comfortable overall. Diltiazem was discontinued this morning due to most recent TTE showing LVEF 25-30%. Recommendation: Will recommend continuing with metoprolol succinate Will recommend starting amiodarone for 1 week Can discontinue Cardizem, given increased risk of major bleeding with the anticoagulation Continue with the diuresis Guideline directed medical therapy can be initiated as tolerated by the patient, can start low-doselosartan initially Would recommend outpatient follow-up with the cardiology Patient will benefit from ischemic workup later on once acute complaints are resolved. Thank you for the consult Cardiology team will sign off at this time. Please reach out for any questions. Digitally Signed by KIRILL PARNELL MD on 04/29/2024 10:[address] [facility] [id number] Cardiology Progress note Date of Service 04/29/2024 Subjective Patient lying comfortably in bed. Denies chest pain or shortness of breath Patient was converted to normal sinus them yesterday. ECHO Summary: 1. Left ventricle: The cavity size is increased. Wall thickness is normal. Systolic function is severely reduced. The estimated ejection fraction is 25-30%. Diastolic dysfunction present but unable to assess severity. 2. Mitral valve: The annulus is mildly calcified. The leaflets are mildly thickened. Thickening. 3. Right ventricle: Systolic function is reduced. 4. Right atrium: The estimated right atrial pressure is 15 mm Hg. Objective Vitals and Measurements T: 36.5 C (Oral) HR: 76 (Monitored) RR: 16 BP: 160/93 SpO2: 95% Intake and Output 7AM Yesterday to 7AM Today Intake and Output (Last 24 hours) Intake Administration Information 725.67 Oral Intake 260.00 Supplement Intake 0.00 Output Urinary Catheter Output: 3625.00 Stool Count 1.00 Total Summary Total Intake 985.67 Total Output 3625.00 Fluid Balance -2639.33 Physical Exam General Appearance: Comfortable, not in acute distress HEENT:Bilateral normal eye movements, normal oral cavity Neck: No JVD noted Cardiac: S1, S2, regular rhythm Lungs: No wheezes, normal chest expansion. Abdomen: No tenderness, no distention, normal bowel sounds. Musculoskeletal: No signs of acute synovitis. Neurological: Alert and oriented x3, no focal neurological deficits grossly. Weight Dosing Weight: 125 kg (04/22/24) Medications Medications (19) Active Scheduled: (14) amiodarone 200 mg tablet 400 mg 2 tab(s), Oral, qDayM apixaban 5 mg tablet 5 mg 1 tab(s), Oral, BID bacitracin topical 500 units/g Ointment TUBE 1 artemio, Topical, BID emollients (Eucerin Cream) 30gm 1 artemio, Topical, BID epoetin anastasiya epbx 10,000 units/mL (pf) vial - NEPH 10,000 unit(s) 1 mL, Subcutaneous, Once furosemide 40 mg/4 mL vial 40 mg 4 mL, IV Push, q8h insulin isophane human recombinant 100 units/ml (10 mL) Inj 8 unit(s) 0.08 mL, Subcutaneous, TIDAC insulin lispro 100 units/mL Soln (3 mL) Give 0-10 units/dose, Subcutaneous, achs linezolid 600 mg 300 mL, IV Piggyback, q12h menthol-zinc oxide topical ointment 4oz 1 artemio, Topical, amhs meropenem 1,000 mg, IV Piggyback, q12h metoprolol succinate 100 mg ER tablet 100 mg 1 tab(s), Oral, BID omeprazole [address] capsule 40 mg 1 cap(s), Oral, BIDAC sodium hypochlorite topical 0.25% Soln 1 artemio, Topical, BID Continuous: (0) PRN: (5) albuterol - ipratropium 2.5 mg-0.5 mg/3 mL Inhal Elena UD 3 mL, Inhalation, q2hRT HYDROmorphone 0.5 mg/0.5 mL PF syringe 0.2 mg 0.2 mL, IV Push, q3h menthol-zinc oxide topical ointment 4oz 1 artemio, Topical, BID metoprolol 1 mg/mL (5mL) vial 10 mg 10 mL, IV Push, q6h ondansetron 2 mg/ 1 mL 2 mL INJ 4 mg 2 mL, IV Push, q6h Lab Results 04/29 07:27 WBC: 12.6 H Hgb: 9.5 L Hct: 29.2 L Platelet: 502 H Neutrophil %: 72.5 04/29 06:07 Glucose Level: 125 H Sodium Level: 135 L Potassium Level: 4.0 BUN: 38.0 H Creatinine Lvl (s): 2.28 H 04/28 07:25 Glucose Level: 138 H Sodium Level: 133 L Potassium Level: 4.2 BUN: 49.0 H Creatinine Lvl (s): 2.31 H 04/28 06:19 WBC: 16.9 H Hgb: 9.1 L Hct: 28.3 L Platelet: 561 H Neutrophil %: 74.0 EKG No qualifying data available. 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 He underwent flexible sigmoidoscopy showing solitary rectal ulcer without evidence of recent bleeding. This morning, he is overloaded, in atrial flutter with variable conduction, heart rate improved down to 120, on nasal cannula, comfortable overall. Diltiazem was discontinued this morning due to most recent TTE showing LVEF 25-30%. Recommendation: Will recommend continuing with metoprolol succinate Will recommend starting amiodarone for 1 week Can discontinue Cardizem, given increased risk of major bleeding with the anticoagulation Continue with the diuresis Guideline directed medical therapy can be initiated as tolerated by the patient, can start low-doselosartan initially Would recommend outpatient follow-up with the cardiology Patient will benefit from ischemic workup later on once acute complaints are resolved. Thank you for the consult Cardiology team will sign off at this time. Please reach out for any questions. Digitally Signed by KIRILL PARNELL MD on 04/29/2024 10:[address] [facility] [id number] Note Date of Service 04/29/24 Subjective 48-year-old male with past medical history significant for obesity, tobacco use uncontrolled type 2diabetes (medication regimen includes Lantus, glimepiride and Jardiance), hypertension, hyperlipidemia, neuropathy , Chronic kidney disease who was admitted to our surgical intensive care unit on 04/16/2024 with the diagnosis of septic shock has resolved to 40 years gangrene, complicated with acute respite failure requiring intubation in the emergency department, metabolic acidosis and multiple organ system failure since has been in the OR for debridement twice. Urology service, of course aggressive antibiotic and the use of pressors have been part of his therapeutic regimens. Underwent sigmoid oscopy on 04/26, reveals 2 cm rectal ulcer with no active bleeding and no stigmata of recent bleed Over the past 24 hours patient's heart rate converted to sinus spontaneously. No further bleeding episodes on anticoagulation. Lying comfortably in bed on room air. Diuresed well with a net negative balance overnight Objective Vitals and Measurements T: 36.5 C (Oral) HR: 76 (Monitored) RR: 16 BP: 160/93 SpO2: 95% Intake and Output 7AM Yesterday to 7AM Today Intake and Output (Last 24 hours) Intake Administration Information 725.67 Oral Intake 260.00 Supplement Intake 0.00 Output Urinary Catheter Output: 3625.00 Stool Count 0.00 Total Summary Total Intake 985.67 Total Output 3625.00 Fluid Balance -2639.33 Physical Exam General: AAOx3, no distress Oral cavity: Moist Oral Mucosa Neck: No mass CVS: irregularly irregular bilateral, No murmur, Normal S1S2, b/l LL edema Respiratory: Equal bilateral breath sounds, no wheezing, no crackles, no accessory muscle use Abdomen: Non-tender, no guarding, no rigidity Ext: Warm to touch Neuro: No focal deficits Weight Dosing Weight: 125 kg (04/22/24) Medications Medications (20) Active Scheduled: (12) bacitracin topical 500 units/g Ointment TUBE 1 artemio, Topical, BID emollients (Eucerin Cream) 30gm 1 artemio, Topical, BID epoetin anastasiya epbx 10,000 units/mL (pf) vial - NEPH 10,000 unit(s) 1 mL, Subcutaneous, Once furosemide 40 mg/4 mL vial 40 mg 4 mL, IV Push, q8h insulin isophane human recombinant 100 units/ml (10 mL) Inj 8 unit(s) 0.08 mL, Subcutaneous, TIDAC insulin lispro 100 units/mL Soln (3 mL) Give 0-10 units/dose, Subcutaneous, achs linezolid 600 mg 300 mL, IV Piggyback, q12h menthol-zinc oxide topical ointment 4oz 1 artemio, Topical, amhs meropenem 1,000 mg, IV Piggyback, q12h metoprolol succinate 100 mg ER tablet 100 mg 1 tab(s), Oral, BID omeprazole [address] capsule 40 mg 1 cap(s), Oral, BIDAC sodium hypochlorite topical 0.25% Soln 1 artemio, Topical, BID Continuous: (2) diltiazem 125 mg [5 mg/hr] + Dextrose 5% in Water 100 mL 100 mL, Intravenous, 5 mL/hr heparin 25,000 unit(s) + Dextrose 5% Premix Diluent 250 mL 250 mL, Intravenous, 10 mL/hr PRN: (6) albuterol - ipratropium 2.5 mg-0.5 mg/3 mL Inhal Elena UD 3 mL, Inhalation, q2hRT heparin 5,000 units/mL (1 mL) vial 4,000 unit(s) 0.8 mL, IV Push, q6h HYDROmorphone 0.5 mg/0.5 mL PF syringe 0.2 mg 0.2 mL, IV Push, q3h menthol-zinc oxide topical ointment 4oz 1 artemio, Topical, BID metoprolol 1 mg/mL (5mL) vial 10 mg 10 mL, IV Push, q6h ondansetron 2 mg/ 1 mL 2 mL INJ 4 mg 2 mL, IV Push, q6h Lab Results 04/29 07:27 WBC: 12.6 H Hgb: 9.5 L Hct: 29.2 L Platelet: 502 H Neutrophil %: 72.5 04/29 06:07 Glucose Level: 125 H Sodium Level: 135 L Potassium Level: 4.0 BUN: 38.0 H Creatinine Lvl (s): 2.28 H 04/28 07:25 Glucose Level: 138 H Sodium Level: 133 L Potassium Level: 4.2 BUN: 49.0 H Creatinine Lvl (s): 2.31 H 04/28 06:19 WBC: 16.9 H Hgb: 9.1 L Hct: 28.3 L Platelet: 561 H Neutrophil %: 74.0 EKG No qualifying data available. Assessment/Plan 1. Acute respiratory failure on mechanical ventilation, has been extubated successfully 2. 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 Septic shock has resolved 3. Claire's gangrene status postdebridement x 2 per urology service. 4. Acute kidney injury, expect also chronic kidney disease. 5. Poorly controlled diabetes mellitus type 2. 6. Anemia of critical illness, had 2 bloody bowel movements on 04/24 and 05/2024, sigmoidoscopy on 04/26/2024 revealed rectal ulcers with no active bleed 7. Atrial fibrillation with rapid ventricular rate and impaired LV systolic function around 35%, does not seem to be in decompensated heart failure 8.. Other comorbidity includes obesity, diabetes mellitus, hypertension and dyslipidemia . Plan: 1. Remains in A-fib RVR persistently. Attempts of amiodarone and Cardizem drip remain unsuccessful.Cardizem drip is off. Start amiodarone 400 mg p.o. daily and continue metoprolol 100 mg XL twice daily. 2. Close discussed with GI and patient cleared to restart anticoagulation. So far tolerating it well without any evidence of GI bleed or drop in hemoglobin. Will switch to Eliquis 3. ADA diet, add nutritional supplements 4. Continue linezolid and meropenem, with Claire syndrome status post debridement 3 times, and multiple cultures including the use of group B beta- hemolytic, followed by infectious disease. 5. Glycemic protocol 6. Continues to be volume overloaded. Renal function at baseline. Continue Lasix 40 mg IV every 8 hours Okay to transfer to stepdown unit Digitally Signed by VIRIDIANA WILLIAM MD on 04/29/2024 10:[address] [facility] [id number] Cardiology Progress note Date of Service 04/28/2024 Subjective Patient sitting comfortably in bed. Denied any chest pain or shortness of breath ECHO Summary: 1. Left ventricle: The cavity size is increased. Wall thickness is normal. Systolic function is severely reduced. The estimated ejection fraction is 25-30%. Diastolic dysfunction present but unable to assess severity. 2. Mitral valve: The annulus is mildly calcified. The leaflets are mildly thickened. Thickening. 3. Right ventricle: Systolic function is reduced. 4. Right atrium: The estimated right atrial pressure is 15 mm Hg. Objective Vitals and Measurements T: 36.5 C (Oral) TMIN: 36.4 C (Oral) TMAX: 36.6 C (Oral) HR: 97 (Monitored) RR: 14 BP: 145/84 SpO2:93% Intake and Output 7AM Yesterday to 7AM Today Intake and Output (Last 24 hours) Intake Administration Information 2330.60 Oral Intake 520.00 Supplement Intake 0.00 Output Urinary Catheter Output: 3175.00 Stool Count 1.00 Total Summary Total Intake 2850.60 Total Output 3175.00 Fluid Balance -324.40 Physical Exam General Appearance: Comfortable, not in acute distress HEENT:Bilateral normal eye movements, normal oral cavity Neck: No JVD noted Cardiac: S1, S2, irregular rhythm Lungs: No wheezes, normal chest expansion. Abdomen: No tenderness, no distention, normal bowel sounds. Musculoskeletal: No signs of acute synovitis. Neurological: Alert and oriented x3, no focal neurological deficits grossly. Weight Dosing Weight: 125 kg (04/22/24) Medications Medications (19) Active Scheduled: (11) bacitracin topical 500 units/g Ointment TUBE 1 artemio, Topical, BID emollients (Eucerin Cream) 30gm 1 artemio, Topical, BID furosemide 40 mg/4 mL vial 40 mg 4 mL, IV Push, q8h insulin isophane human recombinant 100 units/ml (10 mL) Inj 8 unit(s) 0.08 mL, Subcutaneous, TIDAC insulin lispro 100 units/mL Soln (3 mL) Give 0-10 units/dose, Subcutaneous, achs linezolid 600 mg 300 mL, IV Piggyback, q12h menthol-zinc oxide topical ointment 4oz 1 artemio, Topical, amhs meropenem 1,000 mg, IV Piggyback, q12h metoprolol succinate 100 mg ER tablet 100 mg 1 tab(s), Oral, BID omeprazole [address] capsule 40 mg 1 cap(s), Oral, BIDAC sodium hypochlorite topical 0.25% Soln 1 artemio, Topical, BID Continuous: (2) diltiazem 125 mg [5 mg/hr] + Dextrose 5% in Water 100 mL 100 mL, Intravenous, 5 mL/hr heparin 25,000 unit(s) + Dextrose 5% Premix Diluent 250 mL 250 mL, Intravenous, 10 mL/hr PRN: (6) albuterol - ipratropium 2.5 mg-0.5 mg/3 mL Inhal Elena UD 3 mL, Inhalation, q2hRT heparin 5,000 units/mL (1 mL) vial 4,000 unit(s) 0.8 mL, IV Push, q6h HYDROmorphone 0.5 mg/0.5 mL PF syringe 0.2 mg 0.2 mL, IV Push, q3h menthol-zinc oxide topical ointment 4oz 1 artemio, Topical, BID metoprolol 1 mg/mL (5mL) vial 10 mg 10 mL, IV Push, q6h ondansetron 2 mg/ 1 mL 2 mL INJ 4 mg 2 mL, IV Push, q6h Lab Results 04/28 07:25 Glucose Level: 138 H Sodium Level: 133 L Potassium Level: 4.2 BUN: 49.0 H Creatinine Lvl (s): 2.31 H 04/28 06:19 WBC: 16.9 H Hgb: 9.1 L Hct: 28.3 L Platelet: 561 H Neutrophil %: 74.0 04/27 09:40 WBC: 16.1 H Hgb: 8.8 L Hct: 28.0 L Platelet: 535 H Protime: 15.6 H PT International Ratio: 1.4 04/27 03:43 WBC: 16.7 H Hgb: 9.1 L Hct: 28.9 L Platelet: 594 H Glucose Level: 123 H Sodium Level: 136 Potassium Level: 4.6 BUN: 55.0 H Creatinine Lvl (s): 2.29 H EKG No qualifying data available. 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 He underwent flexible sigmoidoscopy showing solitary rectal ulcer without evidence of recent bleeding. This morning, he is overloaded, in atrial flutter with variable conduction, heart rate improved down to 120, on nasal cannula, comfortable overall. Diltiazem was discontinued this morning due to most recent TTE showing LVEF 25-30%. Recommendation: Recommend IV diuresis, consider bumetanide in the setting of current renal function TTE which showed LVEF >40%, can restart diltiazem drip if desired by primary team Continue with metoprolol succinate 12.5 mg daily continue with Cardizem drip, Continue Lasix 40 every 8 Continue metoprolol 100 mg twice daily will give one dose of digoxin , followed by two doses of digoxin 0.0625 mg at 8 hour interval Anticoagulation when safe Ischemic evaluation later Digitally Signed by KIRILL PARNELL MD on 04/28/2024 04:[address] [facility] [id number] Infectious disease Progress note Subjective Patient seen and examined labs and notes reviewed remains in SICU. Patient has remained afebrile the past 24 hours, no leukocytosis was having persistent a fib with RVR - on diltiazem Objective Vitals and Measurements T: 36.5 C (Oral) TMIN: 36.4 C (Oral) TMAX: 36.6 C (Oral) HR: 97 (Monitored) RR: 14 BP: 145/84 SpO2:93% Intake and Output 7AM Yesterday to 7AM Today Intake and Output (Last 24 hours) Intake Administration Information 1710.60 Oral Intake 160.00 Supplement Intake 0.00 Output Urinary Catheter Output: 2475.00 Stool Count 1.00 Total Summary Total Intake 1870.60 Total Output 2475.00 Fluid Balance -604.40 Physical Exam Sleepy but arousable Lungs are clear Heart is regular rhythm Abdomen soft with no tenderness Upper and lower extremities without acute changes Scrotal and genital area and perineal area with no purulence and no bleeding Weight Dosing Weight: 125 kg (04/22/24) Medications Medications (19) Active Scheduled: (11) bacitracin topical 500 units/g Ointment TUBE 1 artemio, Topical, BID emollients (Eucerin Cream) 30gm 1 artemio, Topical, BID furosemide 40 mg/4 mL vial 40 mg 4 mL, IV Push, q8h insulin isophane human recombinant 100 units/ml (10 mL) Inj 8 unit(s) 0.08 mL, Subcutaneous, TIDAC insulin lispro 100 units/mL Soln (3 mL) Give 0-10 units/dose, Subcutaneous, achs linezolid 600 mg 300 mL, IV Piggyback, q12h menthol-zinc oxide topical ointment 4oz 1 artemio, Topical, amhs meropenem 1,000 mg, IV Piggyback, q12h metoprolol succinate 100 mg ER tablet 100 mg 1 tab(s), Oral, BID omeprazole [address] capsule 40 mg 1 cap(s), Oral, BIDAC sodium hypochlorite topical 0.25% Soln 1 artemio, Topical, BID Continuous: (2) diltiazem 125 mg [5 mg/hr] + Dextrose 5% in Water 100 mL 100 mL, Intravenous, 5 mL/hr heparin 25,000 unit(s) + Dextrose 5% Premix Diluent 250 mL 250 mL, Intravenous, 10 mL/hr PRN: (6) albuterol - ipratropium 2.5 mg-0.5 mg/3 mL Inhal Elena UD 3 mL, Inhalation, q2hRT heparin 5,000 units/mL (1 mL) vial 4,000 unit(s) 0.8 mL, IV Push, q6h HYDROmorphone 0.5 mg/0.5 mL PF syringe 0.2 mg 0.2 mL, IV Push, q3h menthol-zinc oxide topical ointment 4oz 1 artemio, Topical, BID metoprolol 1 mg/mL (5mL) vial 10 mg 10 mL, IV Push, q6h ondansetron 2 mg/ 1 mL 2 mL INJ 4 mg 2 mL, IV Push, q6h Lab Results 04/28 07:25 Glucose Level: 138 H Sodium Level: 133 L Potassium Level: 4.2 BUN: 49.0 H Creatinine Lvl (s): 2.31 H 06/10 06:19 WBC: 16.9 H Hgb: 9.1 L Hct: 28.3 L Platelet: 561 H Neutrophil %: 74.0 04/27 09:40 WBC: 16.1 H Hgb: 8.8 L Hct: 28.0 L Platelet: 535 H Protime: 15.6 H PT International Ratio: 1.4 04/27 03:43 WBC: 16.7 H Hgb: 9.1 L Hct: 28.9 L Platelet: 594 H Glucose Level: 123 H Sodium Level: 136 Potassium Level: 4.6 BUN: 55.0 H Creatinine Lvl (s): 2.29 H EKG No qualifying data available. Assessment/Plan Patient is a 48-year-old male with history of type 2 diabetes mellitus obesity hypertension hyperlipidemia neuropathy chronic kidney disease presented to the hospital on 04/16/2024 and admitted to theICU for septic shock secondary to Cliare's gangrene. Due to ongoing leukocytosis CT chest abdomenand pelvis has been obtained CT chest shows right lower lobe pneumonia with bilateral pleural effusion. Repeat sputum culture is pending. Patient in interim also developed GI bleed. Patient is afebrile but continues to be in A-fib with RVR and has persistent leukocytosis of 16,000. 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 Tissue cultures obtained 04/16/2024 notable for polymicrobial pathogens including group B strep, Serratia marcescens which is intermediate to Zosyn, staph epi, MRSE, lactobacillus and Enterococcus faecalis which is ampicillin sensitive. Urology evaluated the patient on 04/23/2024 and performed bedside debridement. Plastics on board and following for local wound care #2 GI bleed-patient underwent flexible sigmoidoscopy that showed a rectal ulcer. GI managing. #3 right lower lobe pneumonia with bilateral pleural effusion. Respiratory culture with light Yeast, not Maribell albicans Continue present antibiotics. ID to follow clinical course and microdata and imaging studies Check LFTS in AM I was present for Silva Marrero LPN , and personally directed, all components of the patient's complete evaluation and management documented by the scribe today. I have personally examined the patient and reviewed all diagnostic data. I have reviewed all of this documentation by the scribe. It documents the history obtained, examination performed, diagnostic testing results compiled by him/her,and discharge information. Digitally Signed by Silva Marrero Scribe on 04/28/2024 02:46 PM Digitally Signed by SON STEEL BA, MD on 04/28/2024 05:[address] [facility] [id number] Cardiology Progress note Date of Service 04/28/2024 Subjective Patient sitting comfortably in bed. Denied any chest pain or shortness of breath ECHO Summary: 1. Left ventricle: The cavity size is increased. Wall thickness is normal. Systolic function is severely reduced. The estimated ejection fraction is 25-30%. Diastolic dysfunction present but unable to assess severity. 2. Mitral valve: The annulus is mildly calcified. The leaflets are mildly thickened. Thickening. 3. Right ventricle: Systolic function is reduced. 4. Right atrium: The estimated right atrial pressure is 15 mm Hg. Objective Vitals and Measurements T: 36.5 C (Oral) TMIN: 36.4 C (Oral) TMAX: 36.6 C (Oral) HR: 97 (Monitored) RR: 14 BP: 145/84 SpO2:93% Intake and Output 7AM Yesterday to 7AM Today Intake and Output (Last 24 hours) Intake Administration Information 2330.60 Oral Intake 520.00 Supplement Intake 0.00 Output Urinary Catheter Output: 3175.00 Stool Count 1.00 Total Summary Total Intake 2850.60 Total Output 3175.00 Fluid Balance -324.40 Physical Exam General Appearance: Comfortable, not in acute distress HEENT:Bilateral normal eye movements, normal oral cavity Neck: No JVD noted Cardiac: S1, S2, irregular rhythm Lungs: No wheezes, normal chest expansion. Abdomen: No tenderness, no distention, normal bowel sounds. Musculoskeletal: No signs of acute synovitis. Neurological: Alert and oriented x3, no focal neurological deficits grossly. Weight Dosing Weight: 125 kg (04/22/24) Medications Medications (19) Active Scheduled: (11) bacitracin topical 500 units/g Ointment TUBE 1 artemio, Topical, BID emollients (Eucerin Cream) 30gm 1 artemio, Topical, BID furosemide 40 mg/4 mL vial 40 mg 4 mL, IV Push, q8h insulin isophane human recombinant 100 units/ml (10 mL) Inj 8 unit(s) 0.08 mL, Subcutaneous, TIDAC insulin lispro 100 units/mL Soln (3 mL) Give 0-10 units/dose, Subcutaneous, achs linezolid 600 mg 300 mL, IV Piggyback, q12h menthol-zinc oxide topical ointment 4oz 1 artemio, Topical, amhs meropenem 1,000 mg, IV Piggyback, q12h metoprolol succinate 100 mg ER tablet 100 mg 1 tab(s), Oral, BID omeprazole [address] capsule 40 mg 1 cap(s), Oral, BIDAC sodium hypochlorite topical 0.25% Soln 1 artemio, Topical, BID Continuous: (2) diltiazem 125 mg [5 mg/hr] + Dextrose 5% in Water 100 mL 100 mL, Intravenous, 5 mL/hr heparin 25,000 unit(s) + Dextrose 5% Premix Diluent 250 mL 250 mL, Intravenous, 10 mL/hr PRN: (6) albuterol - ipratropium 2.5 mg-0.5 mg/3 mL Inhal Elena UD 3 mL, Inhalation, q2hRT heparin 5,000 units/mL (1 mL) vial 4,000 unit(s) 0.8 mL, IV Push, q6h HYDROmorphone 0.5 mg/0.5 mL PF syringe 0.2 mg 0.2 mL, IV Push, q3h menthol-zinc oxide topical ointment 4oz 1 artemio, Topical, BID metoprolol 1 mg/mL (5mL) vial 10 mg 10 mL, IV Push, q6h ondansetron 2 mg/ 1 mL 2 mL INJ 4 mg 2 mL, IV Push, q6h Lab Results 04/28 07:25 Glucose Level: 138 H Sodium Level: 133 L Potassium Level: 4.2 BUN: 49.0 H Creatinine Lvl (s): 2.31 H 04/28 06:19 WBC: 16.9 H Hgb: 9.1 L Hct: 28.3 L Platelet: 561 H Neutrophil %: 74.0 04/27 09:40 WBC: 16.1 H Hgb: 8.8 L Hct: 28.0 L Platelet: 535 H Protime: 15.6 H PT International Ratio: 1.4 04/27 03:43 WBC: 16.7 H Hgb: 9.1 L Hct: 28.9 L Platelet: 594 H Glucose Level: 123 H Sodium Level: 136 Potassium Level: 4.6 BUN: 55.0 H Creatinine Lvl (s): 2.29 H EKG No qualifying data available. 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 He underwent flexible sigmoidoscopy showing solitary rectal ulcer without evidence of recent bleeding. This morning, he is overloaded, in atrial flutter with variable conduction, heart rate improved down to 120, on nasal cannula, comfortable overall. Diltiazem was discontinued this morning due to most recent TTE showing LVEF 25-30%. Recommendation: Recommend IV diuresis, consider bumetanide in the setting of current renal function TTE which showed LVEF >40%, can restart diltiazem drip if desired by primary team Continue with metoprolol succinate 12.5 mg daily continue with Cardizem drip, Continue Lasix 40 every 8 Continue metoprolol 100 mg twice daily will give one dose of digoxin , followed by two doses of digoxin 0.0625 mg at 8 hour interval Anticoagulation when safe Ischemic evaluation later Digitally Signed by KIRILL PARNELL MD on 04/28/2024 04:[address] 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 Urology service, of course aggressive antibiotic and the use of pressors have been part of his therapeutic regimens. Underwent sigmoid oscopy on 04/26, reveals 2 cm rectal ulcer with no active bleeding and no stigmata of recent bleed Over the past 24 hours she was restarted on heparin by weight with no evidence of GI bleed. Hemoglobin stable. Currently lying in bed comfortably on room remains in A-fib RVR requiring Cardizem drip at escalating doses. Objective Vitals and Measurements T: 36.5 C (Oral) TMIN: 36.4 C (Oral) TMAX: 36.6 C (Oral) HR: 117 (Monitored) RR: 16 BP: 113/93 SpO2: 92% Intake and Output 7AM Yesterday to 7AM Today Intake and Output (Last 24 hours) Intake Administration Information 1979.52 Oral Intake 520.00 Supplement Intake 0.00 Output Urinary Catheter Output: 2275.00 Stool Count 1.00 Total Summary Total Intake 2499.52 Total Output 2275.00 Fluid Balance 224.52 Physical Exam General: AAOx3, no distress Oral cavity: Moist Oral Mucosa Neck: No mass CVS: Tachycardic, irregularly irregular bilateral, No murmur, Normal S1S2, b/l LL edema Respiratory: Equal bilateral breath sounds, no wheezing, no crackles, no accessory muscle use Abdomen: Non-tender, no guarding, no rigidity Ext: Warm to touch Neuro: No focal deficits Weight Dosing Weight: 125 kg (04/22/24) Medications Medications (20) Active Scheduled: (12) albumin human 25% (50 mL) vial 25 gram(s) 100 mL, IV Piggyback (MED), Once emollients (Eucerin Cream) 30gm 1 artemio, Topical, BID furosemide 40 mg/4 mL vial 40 mg 4 mL, IV Push, q8h insulin isophane human recombinant 100 units/ml (10 mL) Inj 8 unit(s) 0.08 mL, Subcutaneous, TIDAC insulin lispro 100 units/mL Soln (3 mL) Give 0-10 units/dose, Subcutaneous, achs linezolid 600 mg 300 mL, IV Piggyback, q12h magnesium sulfate PMX 2 gram(s) 50 mL, IV Piggyback, Once menthol-zinc oxide topical ointment 4oz 1 artemio, Topical, amhs meropenem 1,000 mg, IV Piggyback, q12h metoprolol succinate 100 mg ER tablet 100 mg 1 tab(s), Oral, BID omeprazole [address] capsule 40 mg 1 cap(s), Oral, BIDAC sodium hypochlorite topical 0.25% Soln 1 artemio, Topical, BID Continuous: (2) diltiazem 125 mg [5 mg/hr] + Dextrose 5% in Water 100 mL 100 mL, Intravenous, 5 mL/hr heparin 25,000 unit(s) + Dextrose 5% Premix Diluent 250 mL 250 mL, Intravenous, 10 mL/hr PRN: (6) albuterol - ipratropium 2.5 mg-0.5 mg/3 mL Inhal Elena UD 3 mL, Inhalation, q2hRT heparin 5,000 units/mL (1 mL) vial 4,000 unit(s) 0.8 mL, IV Push, q6h HYDROmorphone 0.5 mg/0.5 mL PF syringe 0.2 mg 0.2 mL, IV Push, q3h menthol-zinc oxide topical ointment 4oz 1 arteimo, Topical, BID metoprolol 1 mg/mL (5mL) vial 10 mg 10 mL, IV Push, q6h ondansetron 2 mg/ 1 mL 2 mL INJ 4 mg 2 mL, IV Push, q6h Lab Results 04/28 07:25 Glucose Level: 138 H Sodium Level: 133 L Potassium Level: 4.2 BUN: 49.0 H Creatinine Lvl (s): 2.31 H 04/28 06:19 WBC: 16.9 H Hgb: 9.1 L Hct: 28.3 L Platelet: 561 H Neutrophil %: 74.0 04/27 09:40 WBC: 16.1 H Hgb: 8.8 L Hct: 28.0 L Platelet: 535 H Protime: 15.6 H PT International Ratio: 1.4 04/27 03:43 WBC: 16.7 H Hgb: 9.1 L Hct: 28.9 L Platelet: 594 H Glucose Level: 123 H Sodium Level: 136 Potassium Level: 4.6 BUN: 55.0 H Creatinine Lvl (s): 2.29 H EKG No qualifying data available. Assessment/Plan 1. Acute respiratory failure on mechanical ventilation, has been extubated successfully 2. 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 Septic shock has resolved 3. Claire's gangrene status postdebridement x 2 per urology service. 4. Acute kidney injury, expect also chronic kidney disease. 5. Poorly controlled diabetes mellitus type 2. 6. Anemia of critical illness, had 2 bloody bowel movements on 04/24 and 05/2024, sigmoidoscopy on 04/26/2024 revealed rectal ulcers with no active bleed 7. Atrial fibrillation with rapid ventricular rate and impaired LV systolic function around 35%, does not seem to be in decompensated heart failure 8.. Other comorbidity includes obesity, diabetes mellitus, hypertension and dyslipidemia . Plan: 1. Remains in A-fib RVR persistently. Attempts of amiodarone and Cardizem drip remain unsuccessful.Currently on Cardizem drip and metoprolol 100 mg XL twice daily. At this point appears he will needa RADHA followed by cardioversion 2. Close discussed with GI and patient cleared to restart anticoagulation. So far tolerating it well without any evidence of GI bleed or drop in hemoglobin 3. ADA diet, add nutritional supplements 4. Continue linezolid and meropenem, with Claire syndrome status post debridement 3 times, and multiple cultures including the use of group B beta- hemolytic, followed by infectious disease. 5. Glycemic protocol 6. Continues to be volume overloaded. Renal function at baseline. Still net positive fluid balance on Lasix 40 mg IV twice daily so we will uptitrate to every 8 hours 30 minutes critical care time Digitally Signed by VIRIDIANA WILLIAM MD on 04/28/2024 09:[address] [facility] [id number] Note ORIGINAL EXAMINATION: ONE XRAY VIEW OF THE CHEST 04/28/2024 5:50 am COMPARISON: Chest x-ray on 04/27/2024 HISTORY: ORDERING SYSTEM PROVIDED HISTORY: Reason for Exam: Shortness of breath, pleural effusions FINDINGS: The heart size is normal. Widespread bilateral lung infiltrates show significant improvement since the prior day. Airspace disease is still present at both lung bases. A small amount of pleural fluid is present bilaterally. There is no pneumothorax. IMPRESSION: 1. Improving bilateral lung infiltrates. 2. Small bilateral pleural effusions. Interpreted by: Antonio Lindsey MD Preliminary Report By: Antonio Lindsey MD Electronically signed By Antonio Lindsey MD Dictated Date: 04/28/2024 5:51:52 AM Prelim Date: 04/28/2024 5:53:42 AM Sign Date: 04/28/2024 5:53:42 AM Ordering Provider: [facility]06-09-2024 Cardiology Progress note Date of Service 04/27/2024 Chief Complaint Atrial fibrillation Subjective Feels better symptomatically, remains in rapid atrial flutter Objective Vitals and Measurements T: 36.7 C (Oral) TMIN: 36.4 C (Oral) TMAX: 36.7 C (Oral) HR: 149 (Apical) RR: 20 BP: 114/88 BP: 125/76(Line) SpO2: 91% Intake and Output 7AM Yesterday to 7AM Today Intake and Output (Last 24 hours) Intake Administration Information 1586.00 Oral Intake 760.00 Supplement Intake 0.00 Output Urinary Catheter Output: 1800.00 Stool Count 0.00 Total Summary Total Intake 2346.00 Total Output 1800.00 Fluid Balance 546.00 Physical Exam General: well looking, no acute distress, on no supplemental oxygen Cardiovascular: Rapid irregular rhythm, volume overloaded, well perfused Bedside TTE: LVEF close to normal, >40% Weight Dosing Weight: 125 kg (04/22/24) Medications Medications (19) Active Scheduled: (10) emollients (Eucerin Cream) 30gm 1 artemio, Topical, BID furosemide 40 mg/4 mL vial 40 mg 4 mL, IV Push, BID insulin isophane human recombinant 100 units/ml (10 mL) Inj 8 unit(s) 0.08 mL, Subcutaneous, TIDAC insulin lispro 100 units/mL Soln (3 mL) Give 0-10 units/dose, Subcutaneous, achs linezolid 600 mg 300 mL, IV Piggyback, q12h menthol-zinc oxide topical ointment 4oz 1 artemio, Topical, amhs meropenem 1,000 mg, IV Piggyback, q12h metoprolol succinate 100 mg ER tablet 100 mg 1 tab(s), Oral, BID omeprazole [address] capsule 40 mg 1 cap(s), Oral, BIDAC sodium hypochlorite topical 0.25% Soln 1 artemio, Topical, BID Continuous: (3) amiodarone 450 mg [1 mg/min] + sodium chloride EBONIE 250 mL 250 mL, Intravenous, 33.33 mL/hr heparin 25,000 unit(s) + Dextrose 5% Premix Diluent 250 mL 250 mL, Intravenous, 10 mL/hr Lactated Ringers 1,000 mL 1,000 mL, Intravenous, 50 mL/hr PRN: (6) albuterol - ipratropium 2.5 mg-0.5 mg/3 mL Inhal Elena UD 3 mL, Inhalation, q2hRT heparin 5,000 units/mL (1 mL) vial 4,000 unit(s) 0.8 mL, IV Push, q6h HYDROmorphone 0.5 mg/0.5 mL PF syringe 0.2 mg 0.2 mL, IV Push, q3h menthol-zinc oxide topical ointment 4oz 1 artemio, Topical, BID metoprolol 1 mg/mL (5mL) vial 10 mg 10 mL, IV Push, q6h ondansetron 2 mg/ 1 mL 2 mL INJ 4 mg 2 mL, IV Push, q6h Lab Results 04/27 09:40 WBC: 16.1 H Hgb: 8.8 L Hct: 28.0 L Platelet: 535 H 04/27 03:43 WBC: 16.7 H Hgb: 9.1 L Hct: 28.9 L Platelet: 594 H Glucose Level: 123 H Sodium Level: 136 Potassium Level: 4.6 BUN: 55.0 H Creatinine Lvl (s): 2.29 H 04/26 03:19 WBC: 17.2 H Hgb: 8.9 L Hct: 27.5 L Platelet: 517 H Glucose Level: 138 H Sodium Level: 135 L Potassium Level: 5.0 BUN: 62.0 H Creatinine Lvl (s): 2.57 H EKG No qualifying data available. Assessment/Plan Orders: furosemide, 40 mg= 4 mL, IV Push, BID Magnesium Level, 04/28/24 5:01:00 EDT, Next AM Draw (one day only), Blood, Once, Stop date 245:01:00 EDT N-Terminal proBNP(BNP), 04/28/24 5:00:00 EDT, Next AM Draw (one day only), Blood, Once, Stop date 04/28/24 5:00:00 EDT XR Chest 1 View (Portable)(Chest XR 1 View (Portable)), 04/27/24 10:21:00 EDT, 04/27/24 10:21:00 EDT, Routine, CHF, Full code, Portable: Yes, Bed Nurse and Monitor, Isolation: None, IV: Yes, Oxygen: No, Diabetes: Yes, : N/A, Wt k, [facility], CCU Acute on chronic systolic heart failure LVEF 25% in 04/2023 Newly treated atrial fibrillation atrial flutter RVR Respiratory failure liberated from mechanical ventilation Septic 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 He underwent flexible sigmoidoscopy showing solitary rectal ulcer without evidence of recent bleeding. This morning, he is overloaded, in atrial flutter with variable conduction, heart rate improved down to 120, on nasal cannula, comfortable overall. Diltiazem was discontinued this morning due to most recent TTE showing LVEF 25-30%. Recommendation: Recommend IV diuresis, consider bumetanide in the setting of current renal function We performed a bedside TTE today which showed LVEF >40%, can restart diltiazem drip if desired by primary team Anticoagulation when safe Rate control for now, may need to plan for RADHA cardioversion if no spontaneous cardioversion Ischemic evaluation later Discussed with Dr. Jamie Wiggins MD [employer] Picker Messenger artemio or Pager [phone] Digitally Signed by POLY WIGGINS MD on 04/27/2024 02:[address] [facility] [id number] Note ORIGINAL EXAMINATION: ONE XRAY VIEW OF THE CHEST 04/27/2024 11:00 am COMPARISON: 04/22/2024 HISTORY: ORDERING SYSTEM PROVIDED HISTORY: Reason for Exam: CHF FINDINGS: Progressive pulmonary vascular cephalization evident. There is continued veiling of the lower lobe vessels, a indistinct cardiac contour with enlargement and bibasilar pleural effusions. Skeletal elements remain intact. IMPRESSION: Congestive failure, progressed when compared to prior examination. Interpreted by: Kelvin Doll DO Preliminary Report By: Kelvin Doll DO Electronically signed By Kelvin Doll DO Dictated Date: 04/27/2024 11:52:43 AM Prelim Date: 04/27/2024 11:53:52 AM Sign Date: 04/27/2024 11:53:52 AM Ordering Provider: [facility]06-09-2024 Cardiology Progress note Date of Service 04/27/2024 Chief Complaint Atrial fibrillation Subjective Feels better symptomatically, remains in rapid atrial flutter Objective Vitals and Measurements T: 36.7 C (Oral) TMIN: 36.4 C (Oral) TMAX: 36.7 C (Oral) HR: 149 (Apical) RR: 20 BP: 114/88 BP: 125/76(Line) SpO2: 91% Intake and Output 7AM Yesterday to 7AM Today Intake and Output (Last 24 hours) Intake Administration Information 1586.00 Oral Intake 760.00 Supplement Intake 0.00 Output Urinary Catheter Output: 1800.00 Stool Count 0.00 Total Summary Total Intake 2346.00 Total Output 1800.00 Fluid Balance 546.00 Physical Exam General: well looking, no acute distress, on no supplemental oxygen Cardiovascular: Rapid irregular rhythm, volume overloaded, well perfused Bedside TTE: LVEF close to normal, >40% Weight Dosing Weight: 125 kg (04/22/24) Medications Medications (19) Active Scheduled: (10) emollients (Eucerin Cream) 30gm 1 artemio, Topical, BID furosemide 40 mg/4 mL vial 40 mg 4 mL, IV Push, BID insulin isophane human recombinant 100 units/ml (10 mL) Inj 8 unit(s) 0.08 mL, Subcutaneous, TIDAC insulin lispro 100 units/mL Soln (3 mL) Give 0-10 units/dose, Subcutaneous, achs linezolid 600 mg 300 mL, IV Piggyback, q12h menthol-zinc oxide topical ointment 4oz 1 artemio, Topical, amhs meropenem 1,000 mg, IV Piggyback, q12h metoprolol succinate 100 mg ER tablet 100 mg 1 tab(s), Oral, BID omeprazole [address] capsule 40 mg 1 cap(s), Oral, BIDAC sodium hypochlorite topical 0.25% Soln 1 artemio, Topical, BID Continuous: (3) amiodarone 450 mg [1 mg/min] + sodium chloride EBONIE 250 mL 250 mL, Intravenous, 33.33 mL/hr heparin 25,000 unit(s) + Dextrose 5% Premix Diluent 250 mL 250 mL, Intravenous, 10 mL/hr Lactated Ringers 1,000 mL 1,000 mL, Intravenous, 50 mL/hr PRN: (6) albuterol - ipratropium 2.5 mg-0.5 mg/3 mL Inhal Elena UD 3 mL, Inhalation, q2hRT heparin 5,000 units/mL (1 mL) vial 4,000 unit(s) 0.8 mL, IV Push, q6h HYDROmorphone 0.5 mg/0.5 mL PF syringe 0.2 mg 0.2 mL, IV Push, q3h menthol-zinc oxide topical ointment 4oz 1 artemio, Topical, BID metoprolol 1 mg/mL (5mL) vial 10 mg 10 mL, IV Push, q6h ondansetron 2 mg/ 1 mL 2 mL INJ 4 mg 2 mL, IV Push, q6h Lab Results 04/27 09:40 WBC: 16.1 H Hgb: 8.8 L Hct: 28.0 L Platelet: 535 H 04/27 03:43 WBC: 16.7 H Hgb: 9.1 L Hct: 28.9 L Platelet: 594 H Glucose Level: 123 H Sodium Level: 136 Potassium Level: 4.6 BUN: 55.0 H Creatinine Lvl (s): 2.29 H 04/26 03:19 WBC: 17.2 H Hgb: 8.9 L Hct: 27.5 L Platelet: 517 H Glucose Level: 138 H Sodium Level: 135 L Potassium Level: 5.0 BUN: 62.0 H Creatinine Lvl (s): 2.57 H EKG No qualifying data available. Assessment/Plan Orders: furosemide, 40 mg= 4 mL, IV Push, BID Magnesium Level, 04/28/24 5:01:00 EDT, Next AM Draw (one day only), Blood, Once, Stop date 245:01:00 EDT N-Terminal proBNP(BNP), 04/28/24 5:00:00 EDT, Next AM Draw (one day only), Blood, Once, Stop date 04/28/24 5:00:00 EDT XR Chest 1 View (Portable)(Chest XR 1 View (Portable)), 04/27/24 10:21:00 EDT, 04/27/24 10:21:00 EDT, Routine, CHF, Full code, Portable: Yes, Bed Nurse and Monitor, Isolation: None, IV: Yes, Oxygen: No, Diabetes: Yes, : N/A, Wt k, [facility], CCU Acute on chronic systolic heart failure LVEF 25% in 04/2023 Newly treated atrial fibrillation atrial flutter RVR Respiratory failure liberated from mechanical ventilation Septic 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 He underwent flexible sigmoidoscopy showing solitary rectal ulcer without evidence of recent bleeding. This morning, he is overloaded, in atrial flutter with variable conduction, heart rate improved down to 120, on nasal cannula, comfortable overall. Diltiazem was discontinued this morning due to most recent TTE showing LVEF 25-30%. Recommendation: Recommend IV diuresis, consider bumetanide in the setting of current renal function We performed a bedside TTE today which showed LVEF >40%, can restart diltiazem drip if desired by primary team Anticoagulation when safe Rate control for now, may need to plan for RADHA cardioversion if no spontaneous cardioversion Ischemic evaluation later Discussed with Dr. Jamie Wiggins MD Leaf Size Picker Messenger artemio or Pager [phone] Digitally Signed by POLY WIGGINS MD on 04/27/2024 02:[address] [facility] [id number] Infectious disease Progress note Date of Service 04/27/2024 Chief Complaint Claire's gangrene Subjective Patient afebrile, remains in A-fib with RVR remains in surgical ICU Objective Vitals and Measurements T: 36.7 C (Oral) TMIN: 36.4 C (Oral) TMAX: 36.7 C (Oral) HR: 151 (Monitored) RR: 20 BP: 114/88 BP: 125/76(Line) SpO2: 91% Intake and Output 7AM Yesterday to 7AM Today Intake and Output (Last 24 hours) Intake Administration Information 1586.00 Oral Intake 760.00 Supplement Intake 200.00 Output Urinary Catheter Output: 1800.00 Stool Count 0.00 Total Summary Total Intake 2546.00 Total Output 1800.00 Fluid Balance 746.00 Physical Exam Patient is an elderly male who is noted to be laying in the bed comfortably alert and awake oriented to self and surroundings. He remains in A-fib with RVR. Overall in no respiratory distress. Patient's abdomen is soft and nontender. Right groin wound packed with dressing. Trace bilateral lower extremity edema Weight Dosing Weight: 125 kg (04/22/24) Medications Medications (19) Active Scheduled: (10) emollients (Eucerin Cream) 30gm 1 artemio, Topical, BID furosemide 40 mg/4 mL vial 40 mg 4 mL, IV Push, BID insulin isophane human recombinant 100 units/ml (10 mL) Inj 8 unit(s) 0.08 mL, Subcutaneous, TIDAC insulin lispro 100 units/mL Soln (3 mL) Give 0-10 units/dose, Subcutaneous, achs linezolid 600 mg 300 mL, IV Piggyback, q12h menthol-zinc oxide topical ointment 4oz 1 artemio, Topical, amhs meropenem 1,000 mg, IV Piggyback, q12h metoprolol succinate 100 mg ER tablet 100 mg 1 tab(s), Oral, BID omeprazole [address] capsule 40 mg 1 cap(s), Oral, BIDAC sodium hypochlorite topical 0.25% Soln 1 artemio, Topical, BID Continuous: (3) amiodarone 450 mg [1 mg/min] + sodium chloride EBONIE 250 mL 250 mL, Intravenous, 33.33 mL/hr heparin 25,000 unit(s) + Dextrose 5% Premix Diluent 250 mL 250 mL, Intravenous, 10 mL/hr Lactated Ringers 1,000 mL 1,000 mL, Intravenous, 50 mL/hr PRN: (6) albuterol - ipratropium 2.5 mg-0.5 mg/3 mL Inhal Elena UD 3 mL, Inhalation, q2hRT heparin 5,000 units/mL (1 mL) vial 4,000 unit(s) 0.8 mL, IV Push, q6h HYDROmorphone 0.5 mg/0.5 mL PF syringe 0.2 mg 0.2 mL, IV Push, q3h menthol-zinc oxide topical ointment 4oz 1 artemio, Topical, BID metoprolol 1 mg/mL (5mL) vial 10 mg 10 mL, IV Push, q6h ondansetron 2 mg/ 1 mL 2 mL INJ 4 mg 2 mL, IV Push, q6h Lab Results 04/27 03:43 WBC: 16.7 H Hgb: 9.1 L Hct: 28.9 L Platelet: 594 H Glucose Level: 123 H Sodium Level: 136 Potassium Level: 4.6 BUN: 55.0 H Creatinine Lvl (s): 2.29 H 04/26 03:19 WBC: 17.2 H Hgb: 8.9 L Hct: 27.5 L Platelet: 517 H Glucose Level: 138 H Sodium Level: 135 L Potassium Level: 5.0 BUN: 62.0 H Creatinine Lvl (s): 2.57 H Imaging Results and Diagnostics CT Abdomen/Pelvis w/o Contrast Result Date: April 24, 2024 Verified By: Contributor_system, [employer] CLINICAL STATEMENT: IMPRESSION: 1. Right lower lobe consolidation with moderate bilateral effusions.2. No acute intra-pathology however evaluation is limited without IV contrast3. Anterior abdominal wall surgical wound. CT Thorax w/o Contrast Result Date: April 24, 2024 Verified By: Contributor_system, [employer] CLINICAL STATEMENT: IMPRESSION: Right lower lobe consolidation with moderate bilateral effusions. Coronary ASVD. XR Chest 1 View Result Date: April 22, 2024 Verified By: MILVIA CALI MD CLINICAL STATEMENT: IMPRESSION: 1. Increased bilateral perihilar, right infrahilar and lateral right lowerlobe hazinessand indistinct pulmonary vessels. Considerations includepulmonary edema and pneumonia.2. Interval removal of a right IJ central venous catheter.. XR Chest 1 View Result Date: April 20, 2024 Verified By: ANTONIO LINDSEY MD CLINICAL STATEMENT: IMPRESSION: 1. Status post extubation and removal of enteric tube.2. Small bilateral pleural effusions with mild basilar atelectasis. XR Chest 1 View Result Date: 2024 Verified By: ISAÍAS SANTANA MD CLINICAL STATEMENT: IMPRESSION: Endotracheal tube tip approximately 5.3 cm above the elena. Other lifesupport devices as above. No significant interval change from the prior study. I have personally reviewed the imagesof this examination and agree with theresident's findings and interpretation. XR Chest 1 View Result Date: 2024 Verified By: ANTONIO LINDSEY MD CLINICAL STATEMENT: IMPRESSION: No significant interval change. I have personally reviewed the images of this examination, and agree with theresident's findings and interpretation. XR Chest 1 View Result Date: April 16, 2024 Verified By: ANTONIO LINDSEY MD CLINICAL STATEMENT: IMPRESSION: Interval placement of a right-sided central venous catheter with tipprojecting over themid to lower SVC. Other support devices as above. Otherwise no significant interval change. Preliminary Report was Dictated by a Resident XR Enteric Tube Placement Result Date: April 16, 2024 Verified By: ANTONIO LINDSEY MD CLINICAL STATEMENT: IMPRESSION: 1. Endotracheal tube and enteric tube are in satisfactory position.2. Increasing left basilar atelectasis. XR Chest 1 View Result Date: April 16, 2024 Verified By: ANTONIO LINDSEY MD CLINICAL STATEMENT: IMPRESSION: 1. Endotracheal tube and enteric tube are in satisfactory position.2. Increasing left basilar atelectasis. EKG No qualifying data available. 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 Due to ongoing leukocytosis CT chest abdomenand pelvis has been obtained CT chest shows right lower lobe pneumonia with bilateral pleural effusion. Repeat sputum culture is pending. Patient in interim also developed GI bleed. Patient is afebrile but continues to be in A-fib with RVR and has persistent leukocytosis of 16,000. 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 Tissue cultures obtained 04/16/2024 notable for polymicrobial pathogens including group B strep, Serratia marcescens which is intermediate to Zosyn, staph epi, MRSE, lactobacillus and Enterococcus faecalis which is ampicillin sensitive. Urology evaluated the patient on 04/23/2024 and performed bedside debridement. #2 GI bleed-patient underwent flexible sigmoidoscopy that showed a rectal ulcer. GI managing. #3 right lower lobe pneumonia with bilateral pleural effusion. Respiratory culture is pending. Continue present antibiotics. ID to follow Dr. Steel will start rounding in the morning Digitally Signed by CIARA VIGIL MD on 04/27/2024 10:[address] 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 Urology service, of course aggressive antibiotic and the use of pressors have been part of his therapeutic regimens . Last 24 hours : Underwent sigmoidoscopy on 04/26, reveals 2 cm rectal ulcer with no active bleeding and no stigmata of recent bleed, this morning he is in atrial fibrillation rapid ventricular rate despite use of high-dose beta-blockers and Cardizem that has been stopped per cardiology, patient is normotensive, white count is coming down Objective Vitals and Measurements T: 36.7 C (Oral) TMIN: 36.4 C (Oral) TMAX: 36.7 C (Oral) HR: 132 (Apical) RR: 18 BP: 115/94 BP: 125/76(Line) SpO2: 94% Physical Exam HEENT: ET tube is in place Eyes: Sclerae clear, eye movements normal, pupils reactive and equal Neck: No JVD no adenopathy. Heart: Regular rhythm, no murmur, no S3 or S4. Lungs: Clear breath sounds bilaterally, no rales no rhonchi's no wheeze no dullness Chest wall: Moving symmetrically with respiration. Abdomen: Soft, nondistended, no organomegaly, no tenderness no rigidity, surgical dressing in the scrotal area Lower extremities: No edema or erythema. Neuro: Sedated on mechanical ventilation, does not follow commands Weight Dosing Weight: 125 kg (04/22/24) Medications Medications (15) Active Scheduled: (9) emollients (Eucerin Cream) 30gm 1 artemio, Topical, BID insulin isophane human recombinant 100 units/ml (10 mL) Inj 8 unit(s) 0.08 mL, Subcutaneous, TIDAC insulin lispro 100 units/mL Soln (3 mL) Give 0-10 units/dose, Subcutaneous, achs linezolid 600 mg 300 mL, IV Piggyback, q12h menthol-zinc oxide topical ointment 4oz 1 artemio, Topical, amhs meropenem 1,000 mg, IV Piggyback, q12h metoprolol succinate 100 mg ER tablet 100 mg 1 tab(s), Oral, BID omeprazole [address] capsule 40 mg 1 cap(s), Oral, BIDAC sodium hypochlorite topical 0.25% Soln 1 artemio, Topical, BID Continuous: (1) Lactated Ringers 1,000 mL 1,000 mL, Intravenous, 50 mL/hr PRN: (5) albuterol - ipratropium 2.5 mg-0.5 mg/3 mL Inhal Elena UD 3 mL, Inhalation, q2hRT HYDROmorphone 0.5 mg/0.5 mL PF syringe 0.2 mg 0.2 mL, IV Push, q3h menthol-zinc oxide topical ointment 4oz 1 artemio, Topical, BID metoprolol 1 mg/mL (5mL) vial 10 mg 10 mL, IV Push, q6h ondansetron 2 mg/ 1 mL 2 mL INJ 4 mg 2 mL, IV Push, q6h Lab Results 04/27 03:43 WBC: 16.7 H Hgb: 9.1 L Hct: 28.9 L Platelet: 594 H Glucose Level: 123 H Sodium Level: 136 Potassium Level: 4.6 BUN: 55.0 H Creatinine Lvl (s): 2.29 H 04/26 03:19 WBC: 17.2 H Hgb: 8.9 L Hct: 27.5 L Platelet: 517 H Glucose Level: 138 H Sodium Level: 135 L Potassium Level: 5.0 BUN: 62.0 H Creatinine Lvl (s): 2.57 H EKG No qualifying data available. Assessment/Plan 1. Acute respiratory failure on mechanical ventilation, has been extubated successfully 2. 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 Septic shock has resolved 3. Claire's gangrene status postdebridement x 2 per urology service. 4. Acute kidney injury, expect also chronic kidney disease. 5. Poorly controlled diabetes mellitus type 2. 6. Anemia of critical illness, had 2 bloody bowel movements on 04/24 and 05/2024, sigmoidoscopy on 04/26/2024 revealed rectal ulcers with no active bleed 7. Atrial fibrillation with rapid ventricular rate and impaired LV systolic function around 35%, does not seem to be in decompensated heart failure 8.. Other comorbidity includes obesity, diabetes mellitus, hypertension and dyslipidemia . Plan: 1. Will continue to monitor in the surgical intensive care for the next 24 hours given his atrial fibrillation and rapid ventricular rate that has been somewhat stubborn despite the use of high-dose beta-blockers, will start patient albuterol to drip today. 2. Will discuss with gastroenterology service, and our intention to restart IV heparin and also to see if an EGD is needed before doing so. 3. ADA diet, add nutritional supplements, oral intake is poor with that patient remains on lactatedRinger's but will reduce that to 50 cc an hour. 4. Continue linezolid and meropenem, with Claire syndrome status post debridement 3 times, and multiple cultures including the use of group B beta- hemolytic, followed by infectious disease. 5. Continue current glycemic control, continue Toprol-XL 100 mg p.o. twice daily for the underlyingatrial fibrillation's. 6. Lab data in the morning CBC and basic metabolic profile. Test Discussed with nurse nursing staff at the bedside Time Spent Critical care medicine 30 minutes Digitally Signed by JOAN MCKEON MD on 04/27/2024 08:[address] [facility] [id number] Anesthesiology Consult note Patient: GURINDER HAHN Age: 49 years Sex: Male : 1975 Associated Diagnoses: None Author: GURINDER DELACRUZ MD Assessment Postanesthesia assessment Vitals: Vital signs from flowsheet : Vital Signs 04/26/2024 8:32 EDT Heart Rate Monitored 115 bpm HI Respiratory Rate 18 br/min Systolic Blood Pressure Non-Invasive 125 mmHg Diastolic Blood Pressure Non-Invasive 80 mmHg Mean Arterial Pressure (NBP) 92 mmHg 04/26/2024 8:15 EDT Heart Rate Monitored 121 bpm HI Respiratory Rate 17 br/min Systolic Blood Pressure Non-Invasive 117 mmHg Diastolic Blood Pressure Non-Invasive 81 mmHg Mean Arterial Pressure (NBP) 91 mmHg Reason For Taking VItal Signs Procedure post-care 04/26/2024 8:00 EDT Heart Rate Monitored 109 bpm HI Respiratory Rate 17 br/min Systolic Blood Pressure Non-Invasive 92 mmHg Diastolic Blood Pressure Non-Invasive 67 mmHg Mean Arterial Pressure (NBP) 77 mmHg Reason For Taking VItal Signs Procedure post-care (Modified) 04/26/2024 7:50 EDT Heart Rate Monitored 122 bpm bpm Respiratory Rate - Anes 14 br/min br/min Systolic Blood Pressure Non-Invasive 93 mmHg mmHg Diastolic Blood Pressure Non-Invasive 61 mmHg mmHg 04/26/2024 7:48 EDT Systolic Blood Pressure Non-Invasive 80 mmHg mmHg Diastolic Blood Pressure Non-Invasive 63 mmHg mmHg 04/26/2024 7:45 EDT Heart Rate Monitored 131 bpm bpm Respiratory Rate - Anes 20 br/min br/min 04/26/2024 7:44 EDT Systolic Blood Pressure Non-Invasive 125 mmHg mmHg Diastolic Blood Pressure Non-Invasive 83 mmHg mmHg 04/26/2024 7:42 EDT Systolic Blood Pressure Non-Invasive 145 mmHg mmHg Diastolic Blood Pressure Non-Invasive 105 mmHg mmHg 04/26/2024 7:40 EDT Heart Rate Monitored 128 bpm bpm Respiratory Rate - Anes 0 br/min br/min 04/26/2024 7:38 EDT Systolic Blood Pressure Non-Invasive 147 mmHg mmHg Diastolic Blood Pressure Non-Invasive 136 mmHg mmHg 04/26/2024 5:39 EDT Heart Rate Monitored 135 bpm HI Respiratory Rate 17 br/min Systolic Blood Pressure Non-Invasive 119 mmHg Diastolic Blood Pressure Non-Invasive 100 mmHg >HHI Mean Arterial Pressure (NBP) 108 mmHg Reason For Taking VItal Signs Routine 04/26/2024 3:46 EDT Temperature Oral 36.5 DegC Heart Rate Monitored 126 bpm HI Respiratory Rate 17 br/min Systolic Blood Pressure Non-Invasive 150 mmHg HI Diastolic Blood Pressure Non-Invasive 82 mmHg Mean Arterial Pressure (NBP) 100 mmHg Reason For Taking VItal Signs Routine 04/26/2024 1:23 EDT Heart Rate Monitored 127 bpm HI Respiratory Rate 17 br/min Systolic Blood Pressure Non-Invasive 124 mmHg Diastolic Blood Pressure Non-Invasive 78 mmHg Mean Arterial Pressure (NBP) 94 mmHg Reason For Taking VItal Signs Routine 04/25/2024 23:45 EDT Temperature Oral 36.7 DegC Heart Rate Monitored 111 bpm HI Respiratory Rate 16 br/min Systolic Blood Pressure Non-Invasive 136 mmHg Diastolic Blood Pressure Non-Invasive 74 mmHg Mean Arterial Pressure (NBP) 90 mmHg Reason For Taking VItal Signs Routine 04/25/2024 21:24 EDT Heart Rate Monitored 111 bpm HI Respiratory Rate 17 br/min Systolic Blood Pressure Non-Invasive 106 mmHg Diastolic Blood Pressure Non-Invasive 77 mmHg Mean Arterial Pressure (NBP) 87 mmHg Reason For Taking VItal Signs Routine 04/25/2024 19:43 EDT Temperature Oral 36.5 DegC Heart Rate Monitored 113 bpm HI Respiratory Rate 20 br/min Systolic Blood Pressure Non-Invasive 112 mmHg Diastolic Blood Pressure Non-Invasive 77 mmHg Mean Arterial Pressure (NBP) 89 mmHg Reason For Taking VItal Signs Routine 04/25/2024 17:35 EDT Apical Heart Rate 112 bpm NE 04/25/2024 17:23 EDT Heart Rate Monitored 117 bpm HI Respiratory Rate 16 br/min Systolic Blood Pressure Non-Invasive 131 mmHg Diastolic Blood Pressure Non-Invasive 80 mmHg Mean Arterial Pressure (NBP) 93 mmHg Reason For Taking VItal Signs Routine 04/25/2024 16:03 EDT Temperature Oral 36.6 DegC Heart Rate Monitored 112 bpm HI Respiratory Rate 16 br/min Systolic Blood Pressure Non-Invasive 147 mmHg HI Diastolic Blood Pressure Non-Invasive 96 mmHg HI Mean Arterial Pressure (NBP) 111 mmHg Reason For Taking VItal Signs Routine 04/25/2024 14:52 EDT Heart Rate Monitored 120 bpm HI Systolic Blood Pressure Non-Invasive 112 mmHg Diastolic Blood Pressure Non-Invasive 88 mmHg Mean Arterial Pressure (NBP) 98 mmHg 04/25/2024 14:15 EDT Heart Rate Monitored 120 bpm HI 04/25/2024 13:53 EDT Heart Rate Monitored 118 bpm HI Respiratory Rate 18 br/min Systolic Blood Pressure Non-Invasive 147 mmHg HI Diastolic Blood Pressure Non-Invasive 83 mmHg Mean Arterial Pressure (NBP) 83 mmHg Reason For Taking VItal Signs Routine 04/25/2024 12:11 EDT Apical Heart Rate 123 bpm >HHI 04/25/2024 12:04 EDT Temperature Axillary 36.3 DegC Heart Rate Monitored 123 bpm HI Respiratory Rate 16 br/min Systolic Blood Pressure Non-Invasive 141 mmHg HI Diastolic Blood Pressure Non-Invasive 97 mmHg HI Mean Arterial Pressure (NBP) 107 mmHg Reason For Taking VItal Signs Routine 04/25/2024 9:40 EDT Apical Heart Rate 124 bpm >HHI 04/25/2024 9:39 EDT Heart Rate Monitored 124 bpm HI Respiratory Rate 16 br/min Systolic Blood Pressure Non-Invasive 121 mmHg Diastolic Blood Pressure Non-Invasive 96 mmHg HI Mean Arterial Pressure (NBP) 105 mmHg Reason For Taking VItal Signs Routine 04/25/2024 8:24 EDT Apical Heart Rate 126 bpm >HHI 04/25/2024 7:56 EDT Temperature Axillary 36 DegC Heart Rate Monitored 132 bpm HI Respiratory Rate 16 br/min Systolic Blood Pressure Non-Invasive 126 mmHg Diastolic Blood Pressure Non-Invasive 89 mmHg Mean Arterial Pressure (NBP) 99 mmHg Reason For Taking VItal Signs Routine 04/25/2024 5:35 EDT Heart Rate Monitored 124 bpm HI Respiratory Rate 18 br/min Systolic Blood Pressure Non-Invasive 116 mmHg Diastolic Blood Pressure Non-Invasive 87 mmHg Mean Arterial Pressure (NBP) 98 mmHg Reason For Taking VItal Signs Routine 04/25/2024 4:07 EDT Temperature Oral 36.5 DegC Heart Rate Monitored 111 bpm HI Respiratory Rate 18 br/min Systolic Blood Pressure Non-Invasive 139 mmHg Diastolic Blood Pressure Non-Invasive 88 mmHg Mean Arterial Pressure (NBP) 102 mmHg Reason For Taking VItal Signs Routine 04/25/2024 2:00 EDT Heart Rate Monitored 117 bpm HI Respiratory Rate 18 br/min Systolic Blood Pressure Non-Invasive 109 mmHg Diastolic Blood Pressure Non-Invasive 69 mmHg Mean Arterial Pressure (NBP) 81 mmHg Reason For Taking VItal Signs Routine 04/25/2024 1:10 EDT Apical Heart Rate 116 bpm HI 04/25/2024 1:00 EDT Heart Rate Monitored 116 bpm HI Systolic Blood Pressure Non-Invasive 145 mmHg HI Diastolic Blood Pressure Non-Invasive 113 mmHg >HHI Mean Arterial Pressure (NBP) 121 mmHg 04/25/2024 0:00 EDT Temperature Oral 36.5 DegC Heart Rate Monitored 116 bpm HI Respiratory Rate 18 br/min Systolic Blood Pressure Non-Invasive 137 mmHg Diastolic Blood Pressure Non-Invasive 78 mmHg Mean Arterial Pressure (NBP) 94 mmHg Reason For Taking VItal Signs Routine . Mental status: at preoperative baseline. Respiratory function: respirations are non-labored. Respiratory support: none. CV function: Normal rate, Regular rhythm. Cardiovascular support: none. Pain: Post op control see nursing medication documentation. Nausea status: denies nausea. Postoperative hydration status: euvolemic. Digitally Signed by GURINDER DELACRUZ MD on 04/26/2024 08:[address] [facility] [id number] Note Date of Service 04/26/24 Procedure Name flexible sigmoidoscopy Referring Provider ICU Consent Prior to the procedure being performed, history and physical was performed. All the risks and benefits of the procedure were discussed at length with the patient and informed consent was obtained. Indication hematochezia Location Endoscopy Pre-Procedure Exam The patient's heparin gtt was appropriately stopped prior to the procedure. The patient did not require antibiotic prophylaxis.Physical exam was performed prior to the procedure. Cardiac exam revealed a regular rate and rhythm no murmurs, rubs, or gallops. Respiratory exam was clear throughout. Abdominally the patient was soft and nontender. There is no rebound or guarding present. Procedural Sedation MAC Technique Timeout time was performed prior to beginning the procedure. The Olympus endoscope was passed underdirect vision into the sigmoid colon about 50 cm above the anal verge. The procedure was performed w/o difficulty and the patient tolerated the procedure well Post-Procedure Exam Nonbleeding rectal ulcer Findings The perianal and digital rectal exam was normal. There was a 2 cm ulcer in the rectum about 2 cm above the anal verge. No active bleeding and no stigmata of recent hemorrhage. No biopsies taken due to recent GI bleeding. The remainder of the rectum was normal appearing. The sigmoid colon was normal appearing. There was brown stool scattered throughout. No blood. Retroflexion in the rectum was otherwise unremarkable. Complications none Estimated Blood Loss minimal Assessment/Plan Rectal ulcer without stigmata of recent hemorrhagel, not biopsied. 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 Follow Up/Recommendation 1. Avoid constipation. Start Citrucel 1 tablespoon daily for bulking. 2. OK to resume heparin gtt. 3. Recommend complete colonoscopy, if patient agreeable, in 6 wks as an outpatient to ensure ulcer healing and for routine CRC screening. Digitally Signed by DALE BOLAÑOS MD on 04/26/2024 08:[address] [facility] [id number] Gastroenterology Consult note Date of Service 04/25/2024 Reason for Consultation Hematochezia Referring Physician Stewart History of Present Illness Patient is a 49-year-old male with a past medical history significant for poorly controlled type 2 diabetes, hypertension, hyperlipidemia, chronic kidney disease, neuropathy, tobacco use, and obesityinitially admitted to SICU 04/16/2024 with septic shock and acute respiratory failure requiring intubation in the emergency room. 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 Acute septic shock has resolved and he was extubated 04/19/2024. Hospital stay has been further complicated with new onset A-fib with RVR started on heparin yesterday. Cardiology is following, consideration for RADHA guided cardioversion. Overnight, he had an episode of hematochezia and again this morning. No significant drop in hemoglobin although has been low most of this duration requiring transfusions, last 04/21/2024. His CBC today is showing a WBC 17.4, hemoglobin 7.9, MCV 81.3, and platelet count 445. His BUN and creatinine are 60 and 2.58. Iron studies were obtained showing a chronic disease pattern with an iron 30, TIBC 180, satu ration 17%. Ferritin was 721.1. A CT abdomen pelvis showed no acute findings aside from bilateral pleural effusions, redemonstrated on CT thorax as well. This is felt to be related to volume overload. Diuresis being held given GENE. Patient denies any prior history of GI bleeding or anemia, although review of labs show a relatively chronic, mild anemia possibly related to his renal disease. Has never seen GI in the past or undergone any endoscopic procedures. Family history is unknown. Prior to this admission, he states he waseating well without any issues with acid reflux, nausea, vomiting, or weight loss. He has had no abdominal pain. Bowels are moving regularly prior to this admission. He has not had any further BMs since early this morning. Review of Systems 10 point review of systems normal unless otherwise noted in the HPI. Physical Exam Vitals and Measurements T: 36.3 C (Axillary) TMIN: 36 C (Axillary) TMAX: 36.6 C (Oral) HR: 123 (Apical) RR: 16 BP: 141/97 SpO2: 94% Weight Dosing Weight: 125 kg (04/22/24) General: Awake and alert and in no apparent distress. Able to answer questions and speak in full sentences. HEENT: Mucous membranes moist and pink. Sclerae anicteric. PERRLA. Neuro: Alert and oriented x3. Speech is clear and regular. Heart: Regular rate and rhythm. S1-S2 are present. Lungs: Chest rise symmetrical. Respirations unlabored. Clear to auscultation bilaterally. 3 L NC. Abdomen: Soft, obese and nontender. Nondistended. No guarding or rigidity. Bowel sounds 4 quadrants. No palpated splenomegaly or hepatomegaly. Brown/migel colored stool on MARIBEL. Skin: Warm and dry. No pallor or diaphoresis. No jaundice. Lab Results 04/25 03:34 WBC: 17.4 H Hgb: 7.9 L Hct: 23.9 L Platelet: 445 Glucose Level: 119 H Sodium Level: 135 L Potassium Level: 4.5 BUN: 60.0 H Creatinine Lvl (s): 2.58 H 04/24 18:27 WBC: 17.9 H Hgb: 8.4 L Hct: 26.6 L Platelet: 458 H 04/24 08:53 WBC: 22.6 H Hgb: 7.6 L Hct: 23.5 L Platelet: 495 H Protime: 15.6 H PT International Ratio: 1.4 04/24 03:23 WBC: 19.6 H Hgb: 8.4 L Hct: 26.0 L Platelet: 433 Glucose Level: 116 H Sodium Level: 135 L Potassium Level: 4.7 BUN: 69.0 H Creatinine Lvl (s): 2.62 H Imaging Results and Diagnostics CT Abdomen/Pelvis w/o Contrast Result Date: April 24, 2024 Verified By: Contributor_systemJAMIE CLINICAL STATEMENT: IMPRESSION: 1. Right lower lobe consolidation with moderate bilateral effusions.2. No acute intra-pathology however evaluation is limited without IV contrast3. Anterior abdominal wall surgical wound. CT Thorax w/o Contrast Result Date: April 24, 2024 Verified By: Contributor_system [employer] CLINICAL STATEMENT: IMPRESSION: Right lower lobe consolidation with moderate bilateral effusions. Coronary ASVD. XR Chest 1 View Result Date: April 22, 2024 Verified By: MILVIA CALI MD CLINICAL STATEMENT: IMPRESSION: 1. Increased bilateral perihilar, right infrahilar and lateral right lowerlobe hazinessand indistinct pulmonary vessels. Considerations includepulmonary edema and pneumonia.2. Interval removal of a right IJ central venous catheter.. XR Chest 1 View Result Date: April 20, 2024 Verified By: ANTONIO LINDSEY MD CLINICAL STATEMENT: IMPRESSION: 1. Status post extubation and removal of enteric tube.2. Small bilateral pleural effusions with mild basilar atelectasis. XR Chest 1 View Result Date: 2024 Verified By: ISAÍAS SANTANA MD CLINICAL STATEMENT: IMPRESSION: Endotracheal tube tip approximately 5.3 cm above the elena. Other lifesupport devices as above. No significant interval change from the prior study. I have personally reviewed the imagesof this examination and agree with theresident's findings and interpretation. XR Chest 1 View Result Date: 2024 Verified By: ANTONIO LINDSEY MD CLINICAL STATEMENT: IMPRESSION: No significant interval change. I have personally reviewed the images of this examination, and agree with theresident's findings and interpretation. XR Chest 1 View Result Date: April 16, 2024 Verified By: ANTONIO LINDSEY MD CLINICAL STATEMENT: IMPRESSION: Interval placement of a right-sided central venous catheter with tipprojecting over themid to lower SVC. Other support devices as above. Otherwise no significant interval change. Preliminary Report was Dictated by a Resident XR Enteric Tube Placement Result Date: April 16, 2024 Verified By: ANTONIO LINDSEY MD CLINICAL STATEMENT: IMPRESSION: 1. Endotracheal tube and enteric tube are in satisfactory position.2. Increasing left basilar atelectasis. XR Chest 1 View Result Date: April 16, 2024 Verified By: ANTONIO LINDSEY MD CLINICAL STATEMENT: IMPRESSION: 1. Endotracheal tube and enteric tube are in satisfactory position.2. Increasing left basilar atelectasis. Assessment/Plan Hematochezia Normocytic anemia Iron deficiency of chronic disease Septic shock secondary to Claire gangrene Acute respiratory failure, extubated 04/19/2024 GENE on CKD New onset A-fib with RVR, HBW on hold Patient has had a rather complicated hospital stay initially admitted with septic shock secondary to Claire gangrene status post debridement. Further complicated with acute respiratory failure, GENE, and now new onset A-fib with RVR. He was started on heparin by weight yesterday although this has been placed on hold given an episode of hematochezia last night and again this morning. Exam showingbrown/migel stool possibly indicative of old blood. He has not had a significant drop in hemoglobinalthough has been low throughout this admission requiring prior transfusions, last 04/21/2024. Exact etiology somewhat unclear, possibly perianal in nature although other colonic etiologies to be considered in the setting of anticoagulation. He has never undergone endoscopic evaluation and diddiscuss a colonoscopy although patient seems rather hesitant. Given his acute illness/increased risk could consider a nonsedated flexible sigmoidoscopy. Will review repeat H&H this afternoon. Continue PPI therapy as ordered. We will reevaluate this afternoon regarding patient's decision about proceeding endoscopically. 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 Medications Inpatient Calmoseptine or equivalent topical ointment, 1 artemio, Topical, amhs Calmoseptine or equivalent topical ointment, 1 artemio, Topical, BID, PRN Dakins Half Strength 0.25% topical solution, 1 artemio, Topical, BID Dilaudid, 0.2 mg= 0.2 mL, IV Push, q3h, PRN DuoNeb, 3 mL, Inhalation, q2hRT, PRN emollients, topical, 1 artemio, Topical, BID HumaLOG 100 units/mL subcutaneous solution, Give 0-10 units/dose, Subcutaneous, achs insulin NPH, 8 unit(s)= 0.08 mL, Subcutaneous, TIDAC linezolid, 600 mg= 300 mL, IV Piggyback, q12h Lopressor IV, 10 mg= 10 mL, IV Push, q6h, PRN LR 1,000 mL, 1000 mL, Intravenous meropenem omeprazole, 40 mg= 1 cap(s), Oral, BIDAC Toprol-XL, 100 mg= 1 tab(s), Oral, BID Zofran, 4 mg= 2 mL, IV Push, q6h, PRN Home amLODIPine 10 mg oral tablet, 10 mg= 1 tab(s), Oral, qDay gabapentin 100 mg oral capsule, 300 mg= 3 cap(s), Oral, qDay glimepiride 4 mg oral tablet, 8 mg= 2 tab(s), Oral, with breakfast Jardiance 10 mg oral tablet, 10 mg= 1 tab(s), Oral, qAM, Investigating Lantus Solostar Pen 100 units/mL 3 mL Pen, 30 unit(s), Subcutaneous, qHS lisinopril 20 mg oral tablet, 20 mg= 1 tab(s), Oral, qDay omeprazole 40 mg oral delayed release capsule, 40 mg= 1 cap(s), Oral, BID rosuvastatin 10 mg oral tablet, 10 mg= 1 tab(s), qDay Allergies No active allergies Social History Smoking Status - 08/17/2018 Current every day smoker Alcohol - No Risk, 09/19/2020 Use: Current. Frequency: 1-2 times per year., 07/07/2023 Home/Environment Living situation: Home/Independent. Safe place to go: Yes. Financial concerns: No. Domestic Concerns: None., 03/08/2024 Nutrition/Health Type of diet: Regular. Appetite Good. Eating Difficulties None., 03/08/2024 Substance Abuse - Denies Substance Abuse, 08/17/2018 Use: Never., 04/30/2019 Tobacco - No Risk, 09/19/2020 Tobacco Use: 10 or more cigarettes (1/2 pack or more)/day in last 30 days. Type: Cigarettes., 04/30/2019 Family History Patient was adopted Alcohol abuse: Father. Diabetes: Father. Health Status Family Member(s) Immunizations tetanus/diphth/pertuss (Tdap) adult/adol: 0.5 mL (08/17/18) Digitally Signed by AJ GILLIAM PA-C on 04/25/2024 01:[address] [id number] Gastroenterology Consult note Date of Service 04/25/2024 Reason for Consultation Hematochezia Referring Physician Angl History of Present Illness Patient is a 49-year-old male with a past medical history significant for poorly controlled type 2 diabetes, hypertension, hyperlipidemia, chronic kidney disease, neuropathy, tobacco use, and obesityinitially admitted to SICU 04/16/2024 with septic shock and acute respiratory failure requiring intubation in the emergency room. 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 Acute septic shock has resolved and he was extubated 04/19/2024. Hospital stay has been further complicated with new onset A-fib with RVR started on heparin yesterday. Cardiology is following, consideration for RADHA guided cardioversion. Overnight, he had an episode of hematochezia and again this morning. No significant drop in hemoglobin although has been low most of this duration requiring transfusions, last 04/21/2024. His CBC today is showing a WBC 17.4, hemoglobin 7.9, MCV 81.3, and platelet count 445. His BUN and creatinine are 60 and 2.58. Iron studies were obtained showing a chronic disease pattern with an iron 30, TIBC 180, satu ration 17%. Ferritin was 721.1. A CT abdomen pelvis showed no acute findings aside from bilateral pleural effusions, redemonstrated on CT thorax as well. This is felt to be related to volume overload. Diuresis being held given GENE. Patient denies any prior history of GI bleeding or anemia, although review of labs show a relatively chronic, mild anemia possibly related to his renal disease. Has never seen GI in the past or undergone any endoscopic procedures. Family history is unknown. Prior to this admission, he states he waseating well without any issues with acid reflux, nausea, vomiting, or weight loss. He has had no abdominal pain. Bowels are moving regularly prior to this admission. He has not had any further BMs since early this morning. Review of Systems 10 point review of systems normal unless otherwise noted in the HPI. Physical Exam Vitals and Measurements T: 36.3 C (Axillary) TMIN: 36 C (Axillary) TMAX: 36.6 C (Oral) HR: 123 (Apical) RR: 16 BP: 141/97 SpO2: 94% Weight Dosing Weight: 125 kg (04/22/24) General: Awake and alert and in no apparent distress. Able to answer questions and speak in full sentences. HEENT: Mucous membranes moist and pink. Sclerae anicteric. PERRLA. Neuro: Alert and oriented x3. Speech is clear and regular. Heart: Regular rate and rhythm. S1-S2 are present. Lungs: Chest rise symmetrical. Respirations unlabored. Clear to auscultation bilaterally. 3 L NC. Abdomen: Soft, obese and nontender. Nondistended. No guarding or rigidity. Bowel sounds 4 quadrants. No palpated splenomegaly or hepatomegaly. Brown/migel colored stool on MARIBEL. Skin: Warm and dry. No pallor or diaphoresis. No jaundice. Lab Results 04/25 03:34 WBC: 17.4 H Hgb: 7.9 L Hct: 23.9 L Platelet: 445 Glucose Level: 119 H Sodium Level: 135 L Potassium Level: 4.5 BUN: 60.0 H Creatinine Lvl (s): 2.58 H 04/24 18:27 WBC: 17.9 H Hgb: 8.4 L Hct: 26.6 L Platelet: 458 H 04/24 08:53 WBC: 22.6 H Hgb: 7.6 L Hct: 23.5 L Platelet: 495 H Protime: 15.6 H PT International Ratio: 1.4 04/24 03:23 WBC: 19.6 H Hgb: 8.4 L Hct: 26.0 L Platelet: 433 Glucose Level: 116 H Sodium Level: 135 L Potassium Level: 4.7 BUN: 69.0 H Creatinine Lvl (s): 2.62 H Imaging Results and Diagnostics CT Abdomen/Pelvis w/o Contrast Result Date: April 24, 2024 Verified By: Contributor_systemJAMIE CLINICAL STATEMENT: IMPRESSION: 1. Right lower lobe consolidation with moderate bilateral effusions.2. No acute intra-pathology however evaluation is limited without IV contrast3. Anterior abdominal wall surgical wound. CT Thorax w/o Contrast Result Date: April 24, 2024 Verified By: Contributor_system [employer] CLINICAL STATEMENT: IMPRESSION: Right lower lobe consolidation with moderate bilateral effusions. Coronary ASVD. XR Chest 1 View Result Date: April 22, 2024 Verified By: MILVIA CALI MD CLINICAL STATEMENT: IMPRESSION: 1. Increased bilateral perihilar, right infrahilar and lateral right lowerlobe hazinessand indistinct pulmonary vessels. Considerations includepulmonary edema and pneumonia.2. Interval removal of a right IJ central venous catheter.. XR Chest 1 View Result Date: April 20, 2024 Verified By: ANTONIO LINDSEY MD CLINICAL STATEMENT: IMPRESSION: 1. Status post extubation and removal of enteric tube.2. Small bilateral pleural effusions with mild basilar atelectasis. XR Chest 1 View Result Date: 2024 Verified By: ISAÍAS SANTANA MD CLINICAL STATEMENT: IMPRESSION: Endotracheal tube tip approximately 5.3 cm above the elena. Other lifesupport devices as above. No significant interval change from the prior study. I have personally reviewed the imagesof this examination and agree with theresident's findings and interpretation. XR Chest 1 View Result Date: 2024 Verified By: ANTONIO LINDSEY MD CLINICAL STATEMENT: IMPRESSION: No significant interval change. I have personally reviewed the images of this examination, and agree with theresident's findings and interpretation. XR Chest 1 View Result Date: April 16, 2024 Verified By: ANTONIO LINDSEY MD CLINICAL STATEMENT: IMPRESSION: Interval placement of a right-sided central venous catheter with tipprojecting over themid to lower SVC. Other support devices as above. Otherwise no significant interval change. Preliminary Report was Dictated by a Resident XR Enteric Tube Placement Result Date: April 16, 2024 Verified By: ANTONIO LINDSEY MD CLINICAL STATEMENT: IMPRESSION: 1. Endotracheal tube and enteric tube are in satisfactory position.2. Increasing left basilar atelectasis. XR Chest 1 View Result Date: April 16, 2024 Verified By: ANTONIO LINDSEY MD CLINICAL STATEMENT: IMPRESSION: 1. Endotracheal tube and enteric tube are in satisfactory position.2. Increasing left basilar atelectasis. Assessment/Plan Hematochezia Normocytic anemia Iron deficiency of chronic disease Septic shock secondary to Claire gangrene Acute respiratory failure, extubated 04/19/2024 GENE on CKD New onset A-fib with RVR, HBW on hold Patient has had a rather complicated hospital stay initially admitted with septic shock secondary to Claire gangrene status post debridement. Further complicated with acute respiratory failure, GENE, and now new onset A-fib with RVR. He was started on heparin by weight yesterday although this has been placed on hold given an episode of hematochezia last night and again this morning. Exam showingbrown/migel stool possibly indicative of old blood. He has not had a significant drop in hemoglobinalthough has been low throughout this admission requiring prior transfusions, last 04/21/2024. Exact etiology somewhat unclear, possibly perianal in nature although other colonic etiologies to be considered in the setting of anticoagulation. He has never undergone endoscopic evaluation and diddiscuss a colonoscopy although patient seems rather hesitant. Given his acute illness/increased risk could consider a nonsedated flexible sigmoidoscopy. Will review repeat H&H this afternoon. Continue PPI therapy as ordered. We will reevaluate this afternoon regarding patient's decision about proceeding endoscopically. 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 Medications Inpatient Calmoseptine or equivalent topical ointment, 1 artemio, Topical, amhs Calmoseptine or equivalent topical ointment, 1 artemio, Topical, BID, PRN Dakins Half Strength 0.25% topical solution, 1 artemio, Topical, BID Dilaudid, 0.2 mg= 0.2 mL, IV Push, q3h, PRN DuoNeb, 3 mL, Inhalation, q2hRT, PRN emollients, topical, 1 atremio, Topical, BID HumaLOG 100 units/mL subcutaneous solution, Give 0-10 units/dose, Subcutaneous, achs insulin NPH, 8 unit(s)= 0.08 mL, Subcutaneous, TIDAC linezolid, 600 mg= 300 mL, IV Piggyback, q12h Lopressor IV, 10 mg= 10 mL, IV Push, q6h, PRN LR 1,000 mL, 1000 mL, Intravenous meropenem omeprazole, 40 mg= 1 cap(s), Oral, BIDAC Toprol-XL, 100 mg= 1 tab(s), Oral, BID Zofran, 4 mg= 2 mL, IV Push, q6h, PRN Home amLODIPine 10 mg oral tablet, 10 mg= 1 tab(s), Oral, qDay gabapentin 100 mg oral capsule, 300 mg= 3 cap(s), Oral, qDay glimepiride 4 mg oral tablet, 8 mg= 2 tab(s), Oral, with breakfast Jardiance 10 mg oral tablet, 10 mg= 1 tab(s), Oral, qAM, Investigating Lantus Solostar Pen 100 units/mL 3 mL Pen, 30 unit(s), Subcutaneous, qHS lisinopril 20 mg oral tablet, 20 mg= 1 tab(s), Oral, qDay omeprazole 40 mg oral delayed release capsule, 40 mg= 1 cap(s), Oral, BID rosuvastatin 10 mg oral tablet, 10 mg= 1 tab(s), qDay Allergies No active allergies Social History Smoking Status - 08/17/2018 Current every day smoker Alcohol - No Risk, 09/19/2020 Use: Current. Frequency: 1-2 times per year., 07/07/2023 Home/Environment Living situation: Home/Independent. Safe place to go: Yes. Financial concerns: No. Domestic Concerns: None., 03/08/2024 Nutrition/Health Type of diet: Regular. Appetite Good. Eating Difficulties None., 03/08/2024 Substance Abuse - Denies Substance Abuse, 08/17/2018 Use: Never., 04/30/2019 Tobacco - No Risk, 09/19/2020 Tobacco Use: 10 or more cigarettes (1/2 pack or more)/day in last 30 days. Type: Cigarettes., 04/30/2019 Family History Patient was adopted Alcohol abuse: Father. Diabetes: Father. Health Status Family Member(s) Immunizations tetanus/diphth/pertuss (Tdap) adult/adol: 0.5 mL (08/17/18) Digitally Signed by AJ GILLIAM PA-C on 04/25/2024 01:[address] [facility] [id number] Note ORIGINAL EXAMINATION: CT OF THE ABDOMEN AND PELVIS WITHOUT CONTRAST04/24/2024 5:[address] ABDOMEN/PELVIS WITHOUT CONTRAST EXAM DESCRIPTION: TECHNIQUE: CT of the abdomen and pelvis was performed without the administration of intravenous contrast. Multiplanar reformatted images are provided for review. Automated exposure control, iterative reconstruction, and/or weight based adjustment of the mA/kV was utilized to reduce the radiation dose to as low as reasonably achievable. HISTORY: ORDERING SYSTEM PROVIDED HISTORY: Reason for Exam: pt states no complaints, percerner: Patient with history of Claire's gangrene continues to have persistent leukocytosis evaluate for occult infection Patient with history of Claire's gangrene continues to have persistent leukocytosis evaluate for occult infection FINDINGS: The size, density, and morphology of the liver, spleen, adrenals, kidneys, pancreas and unopacified loops of bowel are unremarkable. Trace ascites. The unopacified aorta demonstrates normal size and morphology without aneurysmal dilation or dissection. There are no enlarged lymph nodes by pathologic size criteria. Appendix is normal. There is moderate free fluid within the pelvis. Bladder is partially collapsed with a Hernandez catheter in place.. Anterior abdominal wall defect at the level of the pubic symphysis. The osseous structures are without gross lytic or sclerotic lesion. Moderate bilateral pleural effusions with compressive atelectasis. Right lower lobe consolidation IMPRESSION: 1. Right lower lobe consolidation with moderate bilateral effusions. 2. No acute intra-pathology however evaluation is limited without IV contrast 3. Anterior abdominal wall surgical wound. Interpreted by: Ruby Guallpa MD Preliminary Report By: Ruby Guallpa MD Electronically signed By Ruby Guallpa MD Dictated Date: 04/24/2024 5:56:20 PM Prelim Date: 04/24/2024 6:05:02 PM Sign Date: 04/24/2024 6:05:02 PM Ordering Provider: [facility]06-06-2024 Note ORIGINAL EXAMINATION: CT OF THE CHEST WITHOUT CONTRAST04/24/2024 5:[address] CHEST WITHOUT CONTRAST EXAM DESCRIPTION: TECHNIQUE: CT of the chest was performed without the administration of intravenous contrast. Multiplanar reformatted images are provided for review. Automated exposure control, iterative reconstruction, and/or weight based adjustment of the mA/kV was utilized to reduce the radiation dose to as low as reasonably achievable. COMPARISON: Chest, April 20, 2024 HISTORY: ORDERING SYSTEM PROVIDED HISTORY: Reason for Exam: pt states no complaints, percerner: Patient with history of Claire's gangrene continues to have persistent leukocytosis evaluate for occult infection Continued leukocytosis, evaluate for infection FINDINGS: Consolidation right lower lobe. Moderate size bilateral pleural effusions. Reactive lymph nodes within the mediastinum. Trace pericardial effusion. Atherosclerosis is noted in the coronary vasculature.. There are no enlarged lymph nodes within the mediastinal, raghavendra, or either axilla by pathologic size criteria. The heart and great vessels are within normal limits. Limited views of the upper abdominal viscera are unremarkable. The osseous structures are without gross or sclerotic lesion. IMPRESSION: Right lower lobe consolidation with moderate bilateral effusions. Coronary ASVD. Interpreted by: Ruby Guallpa MD Preliminary Report By: Ruby Guallpa MD Electronically signed By Ruby Guallpa MD Dictated Date: 04/24/2024 6:05:10 PM Prelim Date: 04/24/2024 6:13:39 PM Sign Date: 04/24/2024 6:13:39 PM Ordering Provider: [facility]06-06-2024 Consult note Date of Service 04/24/2024 Reason for Consultation Open wound of the scrotum penis and mons History of fourniers disease Diabetes mellitus type 2 Referring Physician Housemaid History of Present Illness Is diabetic which is uncontrolled he has developed a severe infection in the scrotum and penis areawhich appears to be extensive and was diagnosed as fourniers disease he had been taken to surgery at least 3 times for extensive debridement patient now has an open wound. He was recently extubated and still in intensive care unit Review of Systems Antibiotic for sometimes which is not very well-controlled is receiving multiple medications insulin and another medications still has a blood sugar level pretty high patient had some previous procedures done on the scrotum which has not evaluated at this time he had an amputation of some part of his body Physical Exam Vitals and Measurements T: 37.1 C (Oral) TMIN: 36.4 C (Oral) TMAX: 37.3 C (Oral) HR: 123 (Monitored) RR: 18 BP: 114/90 SpO2: 89% Weight Dosing Weight: 125 kg (04/22/24) On examination fairly obese white male alert able to communicate laying in bed wound was examined which showed a dressing which was loosely applied as a wet-to-dry dressings there is a defect just below the the pubis extending into and around the testicles also on the surface of the penis on the glances left intact the rest of the skin has been taken off because of the infection there is some slough present which is minimal in nature most of the areas showing some yellowish fatty tissue with with no evidence of any granulation even on the penis. Is devoid of any skin testicles are hanging 20 coverage. Lab Results 04/24 08:53 WBC: 22.6 H Hgb: 7.6 L Hct: 23.5 L Platelet: 495 H Protime: 15.6 H PT International Ratio: 1.4 04/24 03:23 WBC: 19.6 H Hgb: 8.4 L Hct: 26.0 L Platelet: 433 Glucose Level: 116 H Sodium Level: 135 L Potassium Level: 4.7 BUN: 69.0 H Creatinine Lvl (s): 2.62 H 06/05 04:10 WBC: 22.5 H Hgb: 8.3 L Hct: 25.3 L Platelet: 410 Glucose Level: 190 H Sodium Level: 133 L Potassium Level: 4.8 BUN: 68.0 H Creatinine Lvl (s): 2.61 H Assessment/Plan Commended that presently it we can continue with Dakin's solution dressing which is being applied with and change twice a day patient may require an extended care I may recommend that patient [facility] he can be followed by myself and the wound nurses and then if he isready for skin grafting some of the areas may require skin grafting some of the pubic area mites completely healed without any surgical intervention. 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 Medications Inpatient Calmoseptine or equivalent topical ointment, 1 artemio, Topical, amhs Calmoseptine or equivalent topical ointment, 1 artemio, Topical, BID, PRN Dakins Half Strength 0.25% topical solution, 1 artemio, Topical, BID Dilaudid, 0.2 mg= 0.2 mL, IV Push, q3h, PRN DuoNeb, 3 mL, Inhalation, q2hRT, PRN emollients, topical, 1 artemio, Topical, BID Heparin for IV 25,000 unit(s) [8 unit(s)/kg/hr] + Dextrose 5% Premix Diluent 250 mL Heparin HBW CARDIAC Bolus 5000 units/mL, 4000 unit(s)= 0.8 mL, 60 unit(s)/kg, IV Push, q6h, PRN HumaLOG 100 units/mL subcutaneous solution, Give 0-10 units/dose, Subcutaneous, achs insulin NPH, 8 unit(s)= 0.08 mL, Subcutaneous, TIDAC linezolid, 600 mg= 300 mL, IV Piggyback, q12h Lopressor IV, 10 mg= 10 mL, IV Push, q6h, PRN LR 1,000 mL, 1000 mL, Intravenous meropenem, 1000 mg, IV Piggyback, q12h metoprolol tartrate (Lopressor), 75 mg= 3 tab(s), Oral, q6hr omeprazole, 40 mg= 1 cap(s), Oral, BIDAC Zofran, 4 mg= 2 mL, IV Push, q6h, PRN Home amLODIPine 10 mg oral tablet, 10 mg= 1 tab(s), Oral, qDay gabapentin 100 mg oral capsule, 300 mg= 3 cap(s), Oral, qDay glimepiride 4 mg oral tablet, 8 mg= 2 tab(s), Oral, with breakfast Jardiance 10 mg oral tablet, 10 mg= 1 tab(s), Oral, qAM, Investigating Lantus Solostar Pen 100 units/mL 3 mL Pen, 30 unit(s), Subcutaneous, qHS lisinopril 20 mg oral tablet, 20 mg= 1 tab(s), Oral, qDay omeprazole 40 mg oral delayed release capsule, 40 mg= 1 cap(s), Oral, BID rosuvastatin 10 mg oral tablet, 10 mg= 1 tab(s), qDay Allergies No active allergies Social History Smoking Status - 08/17/2018 Current every day smoker Alcohol - No Risk, 09/19/2020 Use: Current. Frequency: 1-2 times per year., 07/07/2023 Home/Environment Living situation: Home/Independent. Safe place to go: Yes. Financial concerns: No. Domestic Concerns: None., 03/08/2024 Nutrition/Health Type of diet: Regular. Appetite Good. Eating Difficulties None., 03/08/2024 Substance Abuse - Denies Substance Abuse, 08/17/2018 Use: Never., 04/30/2019 Tobacco - No Risk, 09/19/2020 Tobacco Use: 10 or more cigarettes (1/2 pack or more)/day in last 30 days. Type: Cigarettes., 04/30/2019 Family History Patient was adopted Alcohol abuse: Father. Diabetes: Father. Health Status Family Member(s) Immunizations tetanus/diphth/pertuss (Tdap) adult/adol: 0.5 mL (08/17/18) Digitally Signed by FRANCESCA PARNELL MD on 04/24/2024 10:[address] [facility] [id number] Note Reason for Consultation Admission From: Home Consult to Skin Team Nurse - Ordered -- 04/23/24 14:25:00 EDT, Physician Order, scrotum. surgical site, per BERNIE HERNÁNDEZ MD requesting possible wound vac, enzymatic debridement ointment for wound Skin Team Findings Vitals and Measurements T: 37.1 C (Oral) TMIN: 36.4 C (Oral) TMAX: 37.3 C (Oral) HR: 132 (Monitored) RR: 18 BP: 112/80 SpO2: 91% Pressure Area Details ------Pressure Area------ I did not evaluate pressure injury during this visit; orders provided 04/21/2024 for right buttocks ------Incision/Wound------ Scrotum - Incision, Wound Cleansing: Cleaned with normal saline Scrotum - Incision, Wound Dressing Assessment: Intact, Drainage present, Loose, Saturated Scrotum - Incision, Wound Dressing/Activity: Assessed Scrotum - Incision, Wound Dressing: ABD dressing pad, Moist saline gauze Scrotum - Incision, Wound Surrounding Tissue: Erythema Scrotum - Skin Abnormality Color: Red, White, Yellow Scrotum - Skin Abnormality Pattern: Depressed, Scattered Scrotum - Skin Abnormality Type: Surgical incision Scrotum - Wound Associated Pain: With dressing change Scrotum - Wound Bed Tissue Type: Granulation 40%, Necrotic tissue, slough 30%, Subcutaneous 20%, Visible muscle 10% Scrotum - Wound Edge: Approximated Scrotum - Wound Exudate Amount: Small Scrotum - Wound Exudate Odor: Faint Scrotum - Wound Exudate Type: Serosanguineous Scrotum - Wound Percent Granulated: 40 % Scrotum - Wound Percent Necrotic Tissue Slough: 30 % *This wound is s/p surgical debridement for Claire's gangrene involving lower abdominal wall, around penile shaft and between and around testicles. Assessments and Recommendations ------Assessments------ Current Skin/Wound Interventions: Saline soaked gauze dressing with ABD. ------Recommendations------ Recommended Skin/Wound Interventions: Dakin's soaked gauze packing with ABD BID and to follow with Dr. Parnell as outpatient for wound care; this was added to depart. Dr. Parnell consulted from plastics today. Patient may need further surgical debridement prior to discharge. Problem List/Past Medical History Ongoing Diabetes GERD (gastroesophageal reflux disease) High cholesterol Digitally Signed by CELSO Olivas February on 04/24/2024 10:[address] [facility] [id number] Urology Progress note Date of Service 04/24/2024 Chief Complaint Claire's gangrene Subjective Patient reports no acute issues. Yesterday I did a small amount of bedside debridement of necrotic connective tissue in the scrotal area. There was no evidence of dru infection anymore. Today, WBC slightly lower, 19.6 Objective Vitals and Measurements T: 36.5 C (Oral) TMIN: 36.4 C (Oral) TMAX: 37.3 C (Oral) HR: 114 (Monitored) RR: 18 BP: 121/87 SpO2: 90% Intake and Output 7AM Yesterday to 7AM Today Intake and Output (Last 24 hours) Intake Oral Intake 970.00 Administration Information 1837.50 Output Urine Voided 0.00 Urinary Catheter Output: 1775.00 Stool Count 3.00 Total Summary Total Intake 2807.50 Total Output 1775.00 Fluid Balance 1032.50 Physical Exam General Appearance: NAD Head: normocephalic EENT: normal Lungs: unlabored breathing Abdomen: NTTP, soft Surgical wound is consistent with yesterday's exam. Mixed granulation tissue and left over connective tissue/eschar. No evidence of recurrent infection Musculoskeletal: normal Extremities: normal Neurological: nonfocal Skin: normal Psychiatric: normal affect Weight Dosing Weight: 125 kg (04/22/24) Medications Medications (15) Active Scheduled: (9) DAPTOmycin 750 mg 15 mL, IV Piggyback, q24h emollients (Eucerin Cream) 30gm 1 artemio, Topical, BID ertapenem 1 gram(s), IV Piggyback, qDay heparin 5,000 units/mL (1 mL) vial 5,000 unit(s) 1 mL, Subcutaneous, q8h insulin isophane human recombinant 100 units/ml (10 mL) Inj 8 unit(s) 0.08 mL, Subcutaneous, TIDAC insulin lispro 100 units/mL Soln (3 mL) Give 0-10 units/dose, Subcutaneous, achs menthol-zinc oxide topical ointment 4oz 1 artemio, Topical, amhs metoprolol tartrate 50 mg tablet 50 mg 1 tab(s), Oral, q6hr omeprazole [address] capsule 40 mg 1 cap(s), Oral, BIDAC Continuous: (1) Lactated Ringers 1,000 mL 1,000 mL, Intravenous, 75 mL/hr PRN: (5) albuterol - ipratropium 2.5 mg-0.5 mg/3 mL Inhal Elena UD 3 mL, Inhalation, q2hRT HYDROmorphone 0.5 mg/0.5 mL PF syringe 0.2 mg 0.2 mL, IV Push, q3h menthol-zinc oxide topical ointment 4oz 1 artemio, Topical, BID metoprolol 1 mg/mL (5mL) vial 10 mg 10 mL, IV Push, q6h ondansetron 2 mg/ 1 mL 2 mL INJ 4 mg 2 mL, IV Push, q6h Lab Results 04/24 03:23 WBC: 19.6 H Hgb: 8.4 L Hct: 26.0 L Platelet: 433 Glucose Level: 116 H Sodium Level: 135 L Potassium Level: 4.7 BUN: 69.0 H Creatinine Lvl (s): 2.62 H 04/23 04:10 WBC: 22.5 H Hgb: 8.3 L Hct: 25.3 L Platelet: 410 Glucose Level: 190 H Sodium Level: 133 L Potassium Level: 4.8 BUN: 68.0 H Creatinine Lvl (s): 2.61 H EKG Electrocardiogram - Completed -- 04/21/24 13:32:00 EDT Assessment/Plan 49 yo male with Claire's gangrene, s/p debridement x 3, with leukocytosis. Leukocytosis is slightly improved today. I do not see any evidence of recurrent infection in the surgical bed. I recommend wound care consult so they can start evaluating him and also to set him up for outpatient management and subsequent skin grafting via plastic surgery. I will sign off again, please call with questions. -- Bernie Hernández MD Urologic Surgery Time Spent 45 minutes Digitally Signed by BERNIE HERNÁNDEZ MD on 04/24/2024 08:[address] 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 Total debridements were 3, last on 04/18. Patient has been critically ill with respiratory failure and septic shock. Cardiology is on board for A fib / Flutter. Infectious disease is on board as well, and was treating with broad spectrum antibiotics. It appears the patient is only on daptomycin at this time. Nephrology is also on board dueto renal failure. Creatinine has stabilized around 2.6. WBC was 24 on April 19 Has vacillated since then, currently at 22.5 on 04/23. Urology reconsulted due to leucocytosis. Patient and nurse report wet to dry dressing changes have overall been going well, with little painand good toleration. Review of Systems as per HPI Physical Exam Vitals and Measurements T: 37.3 C (Oral) TMIN: 36.5 C (Oral) TMAX: 37.3 C (Oral) HR: 128 (Apical) HR: 127 (Monitored) RR: 20 BP: 125/88 SpO2: 91% HT: 188 cm WT: 125 kg BMI: 35.37 Weight Dosing Weight: 125 kg (04/22/24) General Appearance: NAD, lying in bed, conversational Head: normocephalic EENT: normal Lungs: unlabored breathing Abdomen: NTTP, soft, suprapubic wound from debridement : previously debrided genital tissue including all of the scrotal tissue and most of the foreskin. Most of the area is healthy/pink/granulation tissue, with some dried areas of connective tissue/eschar. Small area of dark tissue around the remnant of foreskin proximal to glans penis. Small pocketof Musculoskeletal: normal Extremities: normal Neurological: nonfocal Skin: normal Psychiatric: normal affect Lab Results 04/23 04:10 WBC: 22.5 H Hgb: 8.3 L Hct: 25.3 L Platelet: 410 Glucose Level: 190 H Sodium Level: 133 L Potassium Level: 4.8 BUN: 68.0 H Creatinine Lvl (s): 2.61 H 04/22 11:31 Glucose Level: 249 H Sodium Level: 132 L Potassium Level: 3.8 BUN: 62.0 H Creatinine Lvl (s): 2.60 H 04/22 03:12 WBC: 20.8 H Hgb: 8.0 L Hct: 24.2 L Platelet: 355 Neutrophil %: 81.0 H Glucose Level: 256 H Sodium Level: 132 L Potassium Level: 4.0 BUN: 59.0 H Creatinine Lvl (s): 2.63 H Assessment/Plan 49 yo male with claire's gangrene, s/p debridement x 3, with leukocytosis. >> With nursing, I inspected the wound carefully. Then with patient permission, I did some bedside debridement. I trimmed away the areas of dark skin on the remnant of the foreskin. I also removed some of the soft white necrosis in the bed of tissue next to the right testicle. I also removed some surface connective tissue which had become dry and dark. Patient tolerated very well. I then rep acked the wound with wet to dry kerlex. >> Recommend continuing wet to dry BID, but also consult wound care for wound vac placement. >> If wound care has some enzymatic debridement ointment, that would be a good option to continue removal of the soft tissue in the crevices. >> Will follow patient tomorrow and re-evaluate. -- Bernie Hernández MD Urologic Surgery Problem List/Past Medical History Ongoing Diabetes GERD (gastroesophageal reflux disease) High cholesterol Procedure/Surgical History Testicle: 1993 Amputation Medications Inpatient Calmoseptine or equivalent topical ointment, 1 artemio, Topical, amhs Calmoseptine or equivalent topical ointment, 1 artemio, Topical, BID, PRN DAPTOmycin Dilaudid, 0.2 mg= 0.2 mL, IV Push, q3h, PRN DuoNeb, 3 mL, Inhalation, q2hRT, PRN emollients, topical, 1 artemio, Topical, BID ertapenem heparin 5000 units/mL injection, 5000 unit(s)= 1 mL, Subcutaneous, q8h HumaLOG 100 units/mL subcutaneous solution, Give 0-10 units/dose, Subcutaneous, achs insulin NPH, 8 unit(s)= 0.08 mL, Subcutaneous, TIDAC Lopressor IV, 10 mg= 10 mL, IV Push, q6h, PRN LR 1,000 mL, 1000 mL, Intravenous metoprolol tartrate (Lopressor), 50 mg= 1 tab(s), Oral, q6hr omeprazole, 40 mg= 1 cap(s), Oral, BIDAC Zofran, 4 mg= 2 mL, IV Push, q6h, PRN Home amLODIPine 10 mg oral tablet, 10 mg= 1 tab(s), Oral, qDay gabapentin 100 mg oral capsule, 300 mg= 3 cap(s), Oral, qDay glimepiride 4 mg oral tablet, 8 mg= 2 tab(s), Oral, with breakfast Jardiance 10 mg oral tablet, 10 mg= 1 tab(s), Oral, qAM, Investigating Lantus Solostar Pen 100 units/mL 3 mL Pen, 30 unit(s), Subcutaneous, qHS lisinopril 20 mg oral tablet, 20 mg= 1 tab(s), Oral, qDay omeprazole 40 mg oral delayed release capsule, 40 mg= 1 cap(s), Oral, BID rosuvastatin 10 mg oral tablet, 10 mg= 1 tab(s), qDay Allergies No active allergies Social History Smoking Status - 08/17/2018 Current every day smoker Alcohol - No Risk, 09/19/2020 Use: Current. Frequency: 1-2 times per year., 07/07/2023 Home/Environment Living situation: Home/Independent. Safe place to go: Yes. Financial concerns: No. Domestic Concerns: None., 03/08/2024 Nutrition/Health Type of diet: Regular. Appetite Good. Eating Difficulties None., 03/08/2024 Substance Abuse - Denies Substance Abuse, 08/17/2018 Use: Never., 04/30/2019 Tobacco - No Risk, 09/19/2020 Tobacco Use: 10 or more cigarettes (1/2 pack or more)/day in last 30 days. Type: Cigarettes., 04/30/2019 Family History Patient was adopted Alcohol abuse: Father. Diabetes: Father. Health Status Family Member(s) Immunizations tetanus/diphth/pertuss (Tdap) adult/adol: 0.5 mL (08/17/18) Digitally Signed by BERNIE HERNÁNDEZ MD on 04/23/2024 02:[address] [facility] [id number] Cardiology Consult note Reason for Consultation Atrial fibrillation with RVR History of Present Illness 48-year-old male with past medical history significant for obesity, tobacco use uncontrolled type 2diabetes (medication regimen includes Lantus, glimepiride and Jardiance), hypertension, hyperlipidemia, neuropathy , Chronic kidney disease who was admitted to our surgical intensive care unit on 04/16/2024 with the diagnosis of septic shock has resolved secondary to gangrene, complicated with acuterespiratory failure requiring intubation in the emergency department, metabolic acidosis. Patient went to the OR on 03/19 for debridement. He was brought back to the SICU intubated mechanical ventilation. While in the surgical ICU, the patient was liberated for mechanical ventilation on 04/19/2024. We are consulted for atrial fibrillation. Review of Systems Constitutional: no general complaints/unintentional weight loss and weight gain Eyes: no visual disturbances Ears, Nose, Mouth & Throat: Denies sore throat Cardiovascular: denies chest pain Respiratory: denies dyspnea Gastrointestinal: denies abdominal pain, hematochezia/melena Genitourinary: denies dysuria/hematuria Musculoskeletal: denies arthralgias Skin: denies easy bruising Neurological: denies weakness Psychiatric: denies depressed mood Endocrine: denies polyuria/cold or heat intolerance Hematologic/Lymphatic: denies bleeding issues Allergic/Immunologic: denies allergies Physical Exam Vitals and Measurements T: 37.1 C (Oral) TMIN: 36.4 C (Oral) TMAX: 37.1 C (Oral) HR: 141 (Monitored) RR: 17 BP: 120/80 SpO2: 91% HT: 188 cm WT: 125 kg BMI: 35.37 Weight Dosing Weight: 125 kg (04/22/24) General Appearance: NAD Head: NCAT EENT: no gross abnormalities Neck: no JVD appreciated Cardiac: NS1S2 Lungs: CTAB Abdomen: soft, NT/ND Musculoskeletal: ROM wnl Extremities: no pitting edema Neurological: no focal deficits Skin: warm, dry Psychiatric: normal mentation Lab Results 04/22 11:31 Glucose Level: 249 H Sodium Level: 132 L Potassium Level: 3.8 BUN: 62.0 H Creatinine Lvl (s): 2.60 H 04/22 03:12 WBC: 20.8 H Hgb: 8.0 L Hct: 24.2 L Platelet: 355 Neutrophil %: 81.0 H Glucose Level: 256 H Sodium Level: 132 L Potassium Level: 4.0 BUN: 59.0 H Creatinine Lvl (s): 2.63 H 04/21 23:55 Hgb: 8.9 L Hct: 27.1 L Potassium Level: 4.0 04/21 18:33 Hgb: 7.6 L Hct: 23.5 L 04/21 17:34 WBC: 18.7 H Hgb: 6.6 C Hct: 20.9 L Platelet: 357 Protime: 16.4 H PT International Ratio: 1.4 04/21 14:01 Potassium Level: 4.1 EKG EC04/21/24: Atrial fibrillation Paired ventricular premature complexes Right bundle branch block Electronic Signature: JORDAN MONAE MD 04/22/2024 08:01:54 Assessment/Plan Orders: metoprolol(Lopressor IV), 10 mg= 10 mL, IV Push, q6h, PRN metoprolol(metoprolol tartrate (Lopressor)), 25 mg= 1 tab(s), Oral, q6hr Newly detected atrial fibrillation with RVR Acute blood loss anemia 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 Patient is currently in atrial fibrillation without RVR, hemodynamically stable. Driving substrate for atrial fibrillation is likely postsurgical catecholamine surge, infectious process and acute blood loss anemia. Currently, his hemoglobin is stable and he is hemodynamically stable. DC labetalol and Lopressor, we will initiate rate control strategy with metoprolol tartrate. Titrate as needed to maintain heart rates less than 110. Given his elevated [id number], we recommend initiation of anticoagulation judiciously with serialhemoglobin checks. 2D TTE personally reviewed, LV systolic function reduced to 35% 5, IVC is plethoric without 50% collapsibility suggestive of elevated right atrial filling pressures to 15 mm per mercury. That being said, patient does not clinically appear to be volume overloaded. Would not recommend further resuscitation with IV fluids. Once renal function recovers, we will introduce GDMT and consider ischemic evaluation. 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 Medications Inpatient Calmoseptine or equivalent topical ointment, 1 artemio, Topical, amhs Calmoseptine or equivalent topical ointment, 1 artemio, Topical, BID, PRN DAPTOmycin Dilaudid, 0.2 mg= 0.2 mL, IV Push, q3h, PRN DuoNeb, 3 mL, Inhalation, q2hRT, PRN emollients, topical, 1 artemio, Topical, BID ertapenem HumaLOG 100 units/mL subcutaneous solution, Give 0-10 units/dose, Subcutaneous, achs insulin NPH, 8 unit(s)= 0.08 mL, Subcutaneous, TIDAC Lopressor IV, 10 mg= 10 mL, IV Push, q6h, PRN LR 1,000 mL, 1000 mL, Intravenous metoprolol tartrate (Lopressor), 25 mg= 1 tab(s), Oral, q6hr omeprazole, 40 mg= 1 cap(s), Oral, BIDAC Zofran, 4 mg= 2 mL, IV Push, q6h, PRN Home amLODIPine 10 mg oral tablet, 10 mg= 1 tab(s), Oral, qDay gabapentin 100 mg oral capsule, 300 mg= 3 cap(s), Oral, qDay glimepiride 4 mg oral tablet, 8 mg= 2 tab(s), Oral, with breakfast Jardiance 10 mg oral tablet, 10 mg= 1 tab(s), Oral, qAM, Investigating Lantus Solostar Pen 100 units/mL 3 mL Pen, 30 unit(s), Subcutaneous, qHS lisinopril 20 mg oral tablet, 20 mg= 1 tab(s), Oral, qDay omeprazole 40 mg oral delayed release capsule, 40 mg= 1 cap(s), Oral, BID rosuvastatin 10 mg oral tablet, 10 mg= 1 tab(s), qDay Allergies No active allergies Social History Smoking Status - 08/17/2018 Current every day smoker Alcohol - No Risk, 09/19/2020 Use: Current. Frequency: 1-2 times per year., 07/07/2023 Home/Environment Living situation: Home/Independent. Safe place to go: Yes. Financial concerns: No. Domestic Concerns: None., 03/08/2024 Nutrition/Health Type of diet: Regular. Appetite Good. Eating Difficulties None., 03/08/2024 Substance Abuse - Denies Substance Abuse, 08/17/2018 Use: Never., 04/30/2019 Tobacco - No Risk, 09/19/2020 Tobacco Use: 10 or more cigarettes (1/2 pack or more)/day in last 30 days. Type: Cigarettes., 04/30/2019 Family History Patient was adopted Alcohol abuse: Father. Diabetes: Father. Health Status Family Member(s) Immunizations tetanus/diphth/pertuss (Tdap) adult/adol: 0.5 mL (08/17/18) Digitally Signed by NATASHA VILA MD on 04/22/2024 07:[address] [facility] [facility] [id number] Note* Exam Date Time Procedure Performing Provider Status 04/22/24 6:03 PM Echocardiogram, Adult - CV Auth (Verified) [facility] 06-04-2024 Note ORIGINAL EXAMINATION: ONE XRAY VIEW OF THE CHEST TECHNIQUE: One view AP COMPARISON: Chest 04/20/2024 HISTORY: ORDERING SYSTEM PROVIDED HISTORY: Reason for Exam: hypoxia FINDINGS: Support devices: Interval removal of a right IJ central venous catheter. Cardiomediastinal: The heart is stable in size and configuration. Lungs: Low lung volumes with hypoventilatory changes. Increased bilateral perihilar, right infrahilar and lateral right lower lobe haziness and indistinct pulmonary vessels. The right diaphragm is elevated. No evidence of a large pleural effusion. Pneumothorax: None. Osseous: No acute osseous pathology IMPRESSION: 1. Increased bilateral perihilar, right infrahilar and lateral right lower lobe haziness and indistinct pulmonary vessels. Considerations include pulmonary edema and pneumonia. 2. Interval removal of a right IJ central venous catheter. . Interpreted by: Milvia Cali MD Preliminary Report By: Milvia Cail MD Electronically signed By Milvia Cali MD Dictated Date: 04/22/2024 9:52:04 AM Prelim Date: 04/22/2024 9:56:48 AM Sign Date: 04/22/2024 9:56:48 AM Ordering Provider: BRIDGETTE MORGANMer[facility] [id number] NoteATRIAL FLUTTER WITH 2:1 CONDUCTION Right bundle branch block ST depr, consider ischemia, inferior leads Electronic Signature: EVAN LOZANO MD 04/23/2024 18:12:[address] [place] [address] 06-04-2024 Note* Exam Date Time Procedure Performing Provider Status 04/22/24 6:27 AM VL Venous US/Doppler Both Legs(for DVT) Auth (Verified) [facility] 06-03-2024 NoteAtrial fibrillation Paired ventricular premature complexes Right bundle branch block Electronic Signature: JORDAN MONAE MD 04/22/2024 08:01:54[facility] 06-03-2024 NoteSinus tachycardia RBBB and LPFB Electronic Signature: JORDAN MONAE MD 04/22/2024 07:53:55[facility] 06-03-2024 Note Date of Service 04/21/24 Reason for Consultation Admission From: Home Consult Skin Team re: Pressure Staging - Ordered -- 04/19/24 2:51:00 EDT Skin Team Findings Vitals and Measurements T: 36.6 C (Oral) TMIN: 36.5 C (Oral) TMAX: 37.2 C (Oral) HR: 93 (Monitored) RR: 18 BP: 152/96 SpO2: 96% Pressure Area Details ------Pressure Area------ Buttock Right - Pressure Area Cleansing: Cleaned with soap and water Buttock Right - Pressure Area Description: [place] edges 10%, Edges , Necrotic tissue, escharsoft 90% Buttock Right - Pressure Area Drainage: Scant, Serous Buttock Right - Pressure Area Dressing Description: Open to air Buttock Right - Pressure Area Surrounding Tissue: Dry Buttock Right - Pressure Ulcer Present On Admission: No Buttock Right - Pressure Ulcer Stage: Unstageable ------Pressure Area Measurements------ Buttock Right - Pressure Area Length: 5.4 cm Buttock Right - Pressure Area Width: 5.7 cm ------Incision/Wound------ Scrotum - Incision, Wound Dressing Assessment: Clean Scrotum - Incision, Wound Dressing/Activity: Assessed Scrotum - Incision, Wound Dressing: ABD dressing pad, Wet to moist Scrotum - Incision, Wound Surrounding Tissue: Edematous Assessments and Recommendations ------Assessments------ Current Skin/Wound Interventions: Hospital bed, Low air loss mattress, Turn and position system, Barrier cream 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 ------Recommendations------ Recommended Skin/Wound Interventions: Low air loss mattress, Seat cushion, Turn and position system, Barrier cream, Turn and reposition every 2 hours, Proposed orders sent to physician, Other: medihoney & foam to right butt, calmoseptine to gluteal cleft & perianal, lotion to legs, skin prep heels & offload Additional Skin Team Comments: Urology/surgeon following scrotum/pubic wound Education Individuals Taught: Patient Learning Readiness: low motivation level, critical condition Barriers to Learning: Acuity of illness, Desire/Motivation, Emotional state Teaching Method: Explanation Problem List/Past Medical History Ongoing Diabetes GERD (gastroesophageal reflux disease) High cholesterol Digitally Signed by CELSO Oneill on 04/21/2024 11:[address] [facility] [id number] [facility] Progress note Date of Service 04/20/2024 Chief Complaint Postoperative, postsurgical Subjective Patient seen resting supine in bed this morning, was extubated this morning. No overnight events reported. Objective Vitals and Measurements T: 36.6 C (Oral) TMIN: 36.0 C (Axillary) TMAX: 36.9 C (Oral) HR: 84 (Monitored) RR: 18 BP: 146/90 BP: 146/86(Line) SpO2: 100% Intake and Output 7AM Yesterday to 7AM Today Intake and Output (Last 24 hours) Intake Tube Feeding Intake 193.00 Administration Information 824.82 Oral Intake 0.00 Output Urinary Catheter Output: 5600.00 Stool Count 3.00 Total Summary Total Intake 1017.82 Total Output 5600.00 Fluid Balance -4582.18 Physical Exam General: Awake and alert and in no apparent distress. Able to answer questions and speak in full sentences. Supine in bed. HEENT: Mucous membranes moist and pink. Lungs: Chest rise symmetrical. Respirations unlabored. Clear to auscultation bilaterally. Abdomen: Soft and nontender. Nondistended. No guarding or rigidity. Bowel sounds 4 quadrants. Scrotal area: Surgical dressing intact. Extremities: Freely moving. Skin: Normal color for ethnicity. No pallor or diaphoresis. No jaundice. Psychiatric: Calm and cooperative. Weight Dosing Weight: 125 kg (04/16/24) Medications Medications (16) Active Scheduled: (6) amLODIPine 10 mg tablet 10 mg 1 tab(s), Oral, qDay clindamycin PMX 600 mg 50 mL, IV Piggyback, q6h insulin isophane human recombinant 100 units/ml (10 mL) Inj 8 unit(s) 0.08 mL, Subcutaneous, q8h pantoprazole 40 mg VIAL 40 mg, IV Push, qDayAC piperacillin-tazobactam PMX 3.375 gram(s) 50 mL, IV Piggyback, q8hr VANCOMYCIN -- pharmacy re-dosing by random level 1 EA, Miscellaneous, Daily Continuous: (2) D5/LR 1,000 mL 1,000 mL, Intravenous, 50 mL/hr insulin regular 100 unit(s) + NS Premix Diluent 100 mL 100 mL, Intravenous PRN: (8) albuterol - ipratropium 2.5 mg-0.5 mg/3 mL Inhal Elena UD 3 mL, Inhalation, q2hRT dextrose 50% Solution Disp syringe 50 mL 12.5 gram(s) 25 mL, IV Push, AsDirected dextrose 50% Solution Disp syringe 50 mL 25 g 50 mL, IV Push, AsDirected hydralazine 20 mg/mL (1mL) vial 10 mg 0.5 mL, IV Push, q6h HYDROmorphone 0.5 mg/0.5 mL PF syringe 0.2 mg 0.2 mL, IV Push, q3h insulin regular human recombinant 100 units/mL (3 mL) Soln sliding scale insulin, Subcutaneous, q4h labetalol 5 mg/mL (4 mL) INJ 10 mg 2 mL, IV Push, q6hr ondansetron 2 mg/ 1 mL 2 mL INJ 4 mg 2 mL, IV Push, q6h Lab Results 04/20 04:45 WBC: 20.0 H Hgb: 7.7 L Hct: 23.5 L Platelet: 410 Neutrophil %: 80.4 H Glucose Level: 124 H Sodium Level: 142 Potassium Level: 3.6 BUN: 77.0 H Creatinine Lvl (s): 3.57 H 04/19 04:24 WBC: 34.6 H Hgb: 7.7 L Hct: 24.5 L Platelet: 461 H Glucose Level: 202 H Sodium Level: 138 Potassium Level: 4.1 BUN: 82.0 H Creatinine Lvl (s): 4.34 H Assessment/Plan This patient is a 49-year-old male who was admitted for 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 Patient remains afebrile and hemodynamically stable. Currently on room air with O2 sats 100% after being extubated this morning. WBCs 20.0, down trended from 13.4, Hgb 7.7, HCT 23.5, BUN 77, creatinine 3.57. Urine output 5600 cc / 24 hours Upon examination this morning, the patient is awake and alert, has just been extubated. Surgical incisions and wound dressing changes are being monitored closely by urology. Dressings remain intact. WBCs are downtrending, hemoglobin remained stable at this point. Patient is currently on vancomycin,Zosyn, and clindamycin. Infectious disease has been consulted. No new orders at this time from general surgery. Continue to check daily labs. Case discussed with Dr. Reddy, please see addendum to follow. Digitally Signed by MELA TILLMAN on 04/20/2024 11:[address] [id number] Progress note Date of Service 04/20/2024 Chief Complaint Postoperative, postsurgical Subjective Patient seen resting supine in bed this morning, was extubated this morning. No overnight events reported. Objective Vitals and Measurements T: 36.6 C (Oral) TMIN: 36.0 C (Axillary) TMAX: 36.9 C (Oral) HR: 84 (Monitored) RR: 18 BP: 146/90 BP: 146/86(Line) SpO2: 100% Intake and Output 7AM Yesterday to 7AM Today Intake and Output (Last 24 hours) Intake Tube Feeding Intake 193.00 Administration Information 824.82 Oral Intake 0.00 Output Urinary Catheter Output: 5600.00 Stool Count 3.00 Total Summary Total Intake 1017.82 Total Output 5600.00 Fluid Balance -4582.18 Physical Exam General: Awake and alert and in no apparent distress. Able to answer questions and speak in full sentences. Supine in bed. HEENT: Mucous membranes moist and pink. Lungs: Chest rise symmetrical. Respirations unlabored. Clear to auscultation bilaterally. Abdomen: Soft and nontender. Nondistended. No guarding or rigidity. Bowel sounds 4 quadrants. Scrotal area: Surgical dressing intact. Extremities: Freely moving. Skin: Normal color for ethnicity. No pallor or diaphoresis. No jaundice. Psychiatric: Calm and cooperative. Weight Dosing Weight: 125 kg (04/16/24) Medications Medications (16) Active Scheduled: (6) amLODIPine 10 mg tablet 10 mg 1 tab(s), Oral, qDay clindamycin PMX 600 mg 50 mL, IV Piggyback, q6h insulin isophane human recombinant 100 units/ml (10 mL) Inj 8 unit(s) 0.08 mL, Subcutaneous, q8h pantoprazole 40 mg VIAL 40 mg, IV Push, qDayAC piperacillin-tazobactam PMX 3.375 gram(s) 50 mL, IV Piggyback, q8hr VANCOMYCIN -- pharmacy re-dosing by random level 1 EA, Miscellaneous, Daily Continuous: (2) D5/LR 1,000 mL 1,000 mL, Intravenous, 50 mL/hr insulin regular 100 unit(s) + NS Premix Diluent 100 mL 100 mL, Intravenous PRN: (8) albuterol - ipratropium 2.5 mg-0.5 mg/3 mL Inhal Elena UD 3 mL, Inhalation, q2hRT dextrose 50% Solution Disp syringe 50 mL 12.5 gram(s) 25 mL, IV Push, AsDirected dextrose 50% Solution Disp syringe 50 mL 25 g 50 mL, IV Push, AsDirected hydralazine 20 mg/mL (1mL) vial 10 mg 0.5 mL, IV Push, q6h HYDROmorphone 0.5 mg/0.5 mL PF syringe 0.2 mg 0.2 mL, IV Push, q3h insulin regular human recombinant 100 units/mL (3 mL) Soln sliding scale insulin, Subcutaneous, q4h labetalol 5 mg/mL (4 mL) INJ 10 mg 2 mL, IV Push, q6hr ondansetron 2 mg/ 1 mL 2 mL INJ 4 mg 2 mL, IV Push, q6h Lab Results 04/20 04:45 WBC: 20.0 H Hgb: 7.7 L Hct: 23.5 L Platelet: 410 Neutrophil %: 80.4 H Glucose Level: 124 H Sodium Level: 142 Potassium Level: 3.6 BUN: 77.0 H Creatinine Lvl (s): 3.57 H 04/19 04:24 WBC: 34.6 H Hgb: 7.7 L Hct: 24.5 L Platelet: 461 H Glucose Level: 202 H Sodium Level: 138 Potassium Level: 4.1 BUN: 82.0 H Creatinine Lvl (s): 4.34 H Assessment/Plan This patient is a 49-year-old male who was admitted for 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 Patient remains afebrile and hemodynamically stable. Currently on room air with O2 sats 100% after being extubated this morning. WBCs 20.0, down trended from 13.4, Hgb 7.7, HCT 23.5, BUN 77, creatinine 3.57. Urine output 5600 cc / 24 hours Upon examination this morning, the patient is awake and alert, has just been extubated. Surgical incisions and wound dressing changes are being monitored closely by urology. Dressings remain intact. WBCs are downtrending, hemoglobin remained stable at this point. Patient is currently on vancomycin,Zosyn, and clindamycin. Infectious disease has been consulted. No new orders at this time from general surgery. Continue to check daily labs. Case discussed with Dr. Reddy, please see addendum to follow. Digitally Signed by MELA TILLMAN on 04/20/2024 11:[address] [facility] [id number] Infectious disease Consult note Date of Service 04-20-2024 Reason for Consultation Claire's gangrene Referring Physician Dr Mckeon History of Present Illness This is a 48-year-old male with past medical history significant for obesity, tobacco use uncontrolled type 2 diabetes ,(HTN), hypertension, hyperlipidemia, neuropathy , Chronic kidney disease who was admitted to surgical ICU for septic shock,fourniers gangrene, acute hypoxic respiratory failure requiring intubation. The patient underwent a CT scan of the abdomen pelvis with out contrast on 04/15 that revealed moderate soft tissue swelling and thickening to the right gluteal region with extension along the peritoneum to the scrotum compatible cellulitis. He underwent surgical debridement in the OR x 3. Urology notes are on board. ID was consulted for antimicrobial management. Comfortable in bed, denies acute symptoms, pain in the genital area is improving Review of Systems Comfortable in bed Denies acute symptoms Pain in the genital area is improving Physical Exam Vitals and Measurements T: 36.6 C (Oral) TMIN: 36.0 C (Axillary) TMAX: 36.9 C (Oral) HR: 84 (Monitored) RR: 18 BP: 146/90 BP: 146/86(Line) SpO2: 100% Weight Dosing Weight: 125 kg (04/16/24) General Appearance: Awake, alert, and oriented HEENT: Normocephaly. PERRL Neck: Normal without lymphadenopathy Cardiac: Heart regular rhythm Lungs: clear Abdomen: Soft, non-tender, non-distended Extremities:Warm without clubbing, cyanosis or edema. Dressings in the scrotal and perineal area with no acute purulence, the area is less tender to touch Incisions with no bleeding but tender Neurological: No deficits Skin: Warm, dry, intact. No rashes Psychiatric: No abnormal behaviors Lab Results 04/20 04:45 WBC: 20.0 H Hgb: 7.7 L Hct: 23.5 L Platelet: 410 Neutrophil %: 80.4 H Glucose Level: 124 H Sodium Level: 142 Potassium Level: 3.6 BUN: 77.0 H Creatinine Lvl (s): 3.57 H 04/19 04:24 WBC: 34.6 H Hgb: 7.7 L Hct: 24.5 L Platelet: 461 H Glucose Level: 202 H Sodium Level: 138 Potassium Level: 4.1 BUN: 82.0 H Creatinine Lvl (s): 4.34 H Imaging Results and Diagnostics XR Chest 1 View Result Date: April 20, 2024 Verified By: ANTONIO LINDSEY MD CLINICAL STATEMENT: IMPRESSION: 1. Status post extubation and removal of enteric tube.2. Small bilateral pleural effusions with mild basilar atelectasis. XR Chest 1 View Result Date: 2024 Verified By: ISAÍAS SANTANA MD CLINICAL STATEMENT: IMPRESSION: Endotracheal tube tip approximately 5.3 cm above the elena. Other lifesupport devices as above. No significant interval change from the prior study. I have personally reviewed the imagesof this examination and agree with theresident's findings and interpretation. XR Chest 1 View Result Date: 2024 Verified By: ANTONIO LINDSEY MD CLINICAL STATEMENT: IMPRESSION: No significant interval change. I have personally reviewed the images of this examination, and agree with theresident's findings and interpretation. XR Chest 1 View Result Date: April 16, 2024 Verified By: ANTONIO LINDSEY MD CLINICAL STATEMENT: IMPRESSION: Interval placement of a right-sided central venous catheter with tipprojecting over themid to lower SVC. Other support devices as above. Otherwise no significant interval change. Preliminary Report was Dictated by a Resident XR Enteric Tube Placement Result Date: April 16, 2024 Verified By: ANTONIO LINDSEY MD CLINICAL STATEMENT: IMPRESSION: 1. Endotracheal tube and enteric tube are in satisfactory position.2. Increasing left basilar atelectasis. XR Chest 1 View Result Date: April 16, 2024 Verified By: ANTONIO LINDSEY MD CLINICAL STATEMENT: IMPRESSION: 1. Endotracheal tube and enteric tube are in satisfactory position.2. Increasing left basilar atelectasis. 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 The patient underwent a CT scan of the abdomen pelvis with out contrast on 04/15 that revealed moderate soft tissue swelling and thickening to the right gluteal region with extension along the peritoneum to the scrotum compatible cellulitis. He underwent surgical debridement in the OR x 3. Urology notes are on board. ID was consulted for antimicrobial management. Patient has remained afebrile the past 24 hours. White count history none 20,000, 34,600 yesterday.Renal function appears to be improving-nephrology on board. Currently being treated with IV vancomycin, clindamycin and Zosyn C. difficile was negative Blood cultures show no growth to date Wound cultures showing group b strep and serratia We will check LFTs in the morning, q. hepatitis panel, HIV, and RPR Will adjust antimicrobial therapy to daptomycin, Zosyn and clindamycin that is renally dosed Discussed the plan of care with patient He is aware potential of antibiotic therapy Continues to be monitored in surgical ICU Dr Vigil will be covering starting tomorrow Thank you for this consultation, will follow I was present for Silva Marrero LPN , and personally directed, all components of the patient's complete evaluation and management documented by the scribe today. I have personally examined the patient and reviewed all diagnostic data. I have reviewed all of this documentation by the scribe. It documents the history obtained, examination performed, diagnostic testing results compiled by him/her,and discharge information. 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 Medications Inpatient clindamycin, 600 mg= 50 mL, IV Piggyback, q6h D5LR 1000 mL 1,000 mL, 1000 mL, Intravenous Dextrose, 25 gram(s)= 50 mL, IV Push, AsDirected, PRN Dextrose 50% IV Push, 12.5 gram(s)= 25 mL, IV Push, AsDirected, PRN Dilaudid, 0.2 mg= 0.2 mL, IV Push, q3h, PRN DuoNeb, 3 mL, Inhalation, q2hRT, PRN HumuLIN R, sliding scale insulin, Subcutaneous, q4h, PRN hydrALAZINE, 10 mg= 0.5 mL, IV Push, q6h, PRN insulin NPH, 8 unit(s)= 0.08 mL, Subcutaneous, q8h Insulin Regular for IV 100 unit(s) + NS Premix Diluent 100 mL labetalol, 10 mg= 2 mL, IV Push, q6hr, PRN Norvasc, 10 mg= 1 tab(s), Oral, qDay Protonix, 40 mg, IV Push, qDayAC VANCOMYCIN -- pharmacy re-dosing by random level, 1 EA, Miscellaneous, Daily Zofran, 4 mg= 2 mL, IV Push, q6h, PRN Zosyn, 3.375 gram(s)= 50 mL, IV Piggyback, q8hr Home amLODIPine 10 mg oral tablet, 10 mg= 1 tab(s), Oral, qDay clotrimazole 1% topical cream, 1 artemio, Topical, BID gabapentin 100 mg oral capsule, 300 mg= 3 cap(s), Oral, qDay glimepiride 4 mg oral tablet, 8 mg= 2 tab(s), Oral, with breakfast Jardiance 10 mg oral tablet, 10 mg= 1 tab(s), Oral, qAM, Investigating Lantus Solostar Pen 100 units/mL 3 mL Pen, 30 unit(s), Subcutaneous, qHS lisinopril 20 mg oral tablet, 20 mg= 1 tab(s), Oral, qDay omeprazole 40 mg oral delayed release capsule, 40 mg= 1 cap(s), Oral, BID rosuvastatin 10 mg oral tablet, 10 mg= 1 tab(s), qDay Allergies ampicillin penicillin Social History Smoking Status - 08/17/2018 Current every day smoker Alcohol - No Risk, 09/19/2020 Use: Current. Frequency: 1-2 times per year., 07/07/2023 Home/Environment Living situation: Home/Independent. Safe place to go: Yes. Financial concerns: No. Domestic Concerns: None., 03/08/2024 Nutrition/Health Type of diet: Regular. Appetite Good. Eating Difficulties None., 03/08/2024 Substance Abuse - Denies Substance Abuse, 08/17/2018 Use: Never., 04/30/2019 Tobacco - No Risk, 09/19/2020 Tobacco Use: 10 or more cigarettes (1/2 pack or more)/day in last 30 days. Type: Cigarettes., 04/30/2019 Family History Patient was adopted Alcohol abuse: Father. Diabetes: Father. Health Status Family Member(s) Immunizations tetanus/diphth/pertuss (Tdap) adult/adol: 0.5 mL (08/17/18) Digitally Signed by Silva Marrero Licensed Scribe on 04/20/2024 10:31 AM Digitally Signed by Silva Marrero Licensed Scribe on 04/20/2024 10:54 AM Digitally Signed by SON STEEL BA, MD on 04/20/2024 01:[address] [facility] [id number] Note ORIGINAL EXAMINATION: ONE XRAY VIEW OF THE CHEST 04/20/2024 6:33 am COMPARISON: Chest x-ray on 2024 HISTORY: ORDERING SYSTEM PROVIDED HISTORY: Reason for Exam: resp failure FINDINGS: The endotracheal tube and the enteric tube have been removed since the prior exam. Right internal jugular central venous catheter tip is in the superior vena cava. There is hypoventilation of the lungs. This exaggerates the heart size and crowds lung markings. Small bilateral pleural effusions are present with mild atelectasis at the lung bases. There is no pneumothorax. IMPRESSION: 1. Status post extubation and removal of enteric tube. 2. Small bilateral pleural effusions with mild basilar atelectasis. Interpreted by: Antonio Lindsey MD Preliminary Report By: Antonio Lindsey MD Electronically signed By Antonio Lindsey MD Dictated Date: 04/20/2024 6:37:09 AM Prelim Date: 04/20/2024 6:38:24 AM Sign Date: 04/20/2024 6:38:24 AM Ordering Provider: [facility]06-01-2024 [facility] Progress note Date of Service 04/19/2024 Surgery progress note: Tmax 37 5. Vital signs stable. Patient is no longer on any vasopressors. Urine output 1450 cc. Patient began putting semiliquid stool out this morning. Patient is on tube feedings with Nepro and tolerating them so far. Patient is partially sedated appears to be mildly agitated. He does not respond to commands. Lungs clear and equal to auscultation. Abdomen is obese but soft and benign nondistended seems to be nontender positive bowel sounds. The open suprapubic wound which tracks down into the general area is wide open very deep but appears relatively clean with only a few patches of eschar and exudate. There is not appear to be any substantial residual necrotic tissue although the genital part of the wound was not closely inspected. There appears to be no obvious pus or cellulitis. White blood count is up to 34.8. Patient on vancomycin Zosyn and clindamycin. Impression: Claire's gangrene/necrotizing infection of the genitalia area and suprapubic region which has now been debrided operatively 3 times. Patient's hemodynamics have improved and he is now off pressors.His renal function remained stable.Wound appears relatively clean. Uncertain reason why the patient's leukocytosis continues to rise. [place] dressing changes per urology. Continue triple antibiotics for now. Supportive care and continue to monitor CBC. Digitally Signed by CHRISTINA YADAV MD on 04/19/2024 10:[address] [facility] [id number] [facility] Progress note Date of Service 04/18/2024 Subjective No overnight events. Patient remains intubated on the ventilator. He is on a insulin, ketamine, Levophed drip. No acute concerns per nursing staff. Objective Vitals and Measurements T: 37.5 C (Oral) TMIN: 37.0 C (Oral) TMAX: 38.8 C (Oral) HR: 93 (Monitored) RR: 26 BP: 129/62 BP: 130/66(Line) SpO2: 100% Intake and Output 7AM Yesterday to 7AM Today Intake and Output (Last 24 hours) Intake Red Blood Cells Amount Transfused 745.00 Administration Information 2079.57 Oral Intake 0.00 Output Urinary Catheter Output: 1150.00 Gastric Tube Output: 75.00 Stool Count 1.00 Total Summary Total Intake 2824.57 Total Output 1225.00 Fluid Balance 1599.57 Physical Exam General: Sedated on ventilator CV: RRR, no MRG Resp: CTAB Abd: Soft, ND, NT, +BS Wound: Scrotal packing in place. No further drainage appreciated. Weight Dosing Weight: 125 kg (04/16/24) Medications Medications (21) Active Scheduled: (8) chlorhexidine topical 0.12% Liquid (60 mL) 15 mL, Swish & Spit, QID clindamycin PMX 600 mg 50 mL, IV Piggyback, q6h insulin isophane human recombinant 100 units/ml (10 mL) Inj 8 unit(s) 0.08 mL, Subcutaneous, q8h ocular lubricant - Ointment 3.5 gram(s) 1 artemio, Eyes, both, q8hr ocular lubricant preserved Soln 15 mL 1 drop(s), Eyes, both, q8hr pantoprazole 40 mg VIAL 40 mg, IV Push, qDayAC piperacillin-tazobactam PMX 3.375 gram(s) 50 mL, IV Piggyback, q8hr VANCOMYCIN -- pharmacy re-dosing by random level 1 EA, Miscellaneous, Daily Continuous: (6) Dextrose 5% in Water 1,000 mL + sodium bicarbonate 8.4% vial 150 mEq 1,000 mL, Intravenous, 100 mL/hr insulin regular 100 unit(s) + NS Premix Diluent 100 mL 100 mL, Intravenous ketamine 2,500 mg [0.5 mg/kg/hr] + Sodium Chloride 0.9% 225 mL 225 mL, Intravenous, 6.25 mL/hr norepinephrine 8 mg [5 mcg/min] + NS Premix Diluent 250 mL 250 mL, Intravenous, 9.38 mL/hr NS (0.9% nacl) 500 mL 500 mL, Intravenous, 20 mL/hr vasopressin 20 unit(s) [0.03 unit(s)/min] + Dextrose 5% Premix Diluent 100 mL 100 mL, Intravenous, 9 mL/hr PRN: (7) albuterol - ipratropium 2.5 mg-0.5 mg/3 mL Inhal Elena UD 3 mL, Inhalation, q2hRT dextrose 50% Solution Disp syringe 50 mL 12.5 gram(s) 25 mL, IV Push, AsDirected dextrose 50% Solution Disp syringe 50 mL 25 g 50 mL, IV Push, AsDirected fentaNYL 50 mcg/mL (2mL) ampule 25 mcg 0.5 mL, IV Push, q15min insulin regular human recombinant 100 units/mL (3 mL) Soln sliding scale insulin, Subcutaneous, q4h ocular lubricant - Ointment 3.5 gram(s) 1 artemio, Eyes, both, AsDirected ocular lubricant preserved Soln 15 mL 1 drop(s), Eyes, both, AsDirected Lab Results 04/18 05:32 WBC: 35.1 H Hgb: 6.5 C Hct: 20.1 L Platelet: 441 Neutrophil %: 87.3 H Glucose Level: 169 H Sodium Level: 137 Potassium Level: 4.2 BUN: 78.0 H Creatinine Lvl (s): 4.34 H 04/17 20:16 Hgb: 6.7 C Hct: 20.8 L Glucose Level: 248 H Sodium Level: 135 L Potassium Level: 5.1 H BUN: 76.0 H Creatinine Lvl (s): 4.29 H 04/17 04:33 WBC: 40.7 H Hgb: 7.2 L Hct: 22.8 L Platelet: 488 H Glucose Level: 191 H Sodium Level: 136 Potassium Level: 4.5 BUN: 75.0 H Creatinine Lvl (s): 4.11 H 04/17 00:16 WBC: 41.5 H Hgb: 7.3 L Hct: 23.1 L Platelet: 485 H Glucose Level: 218 H Sodium Level: 137 Potassium Level: 4.7 BUN: 76.0 H Creatinine Lvl (s): 4.17 H EKG Electrocardiogram (EKG) - InProcess -- 04/16/24 4:07:00 EDT Electrocardiogram (EKG) - Ordered -- 04/17/24 20:00:00 EDT Assessment/Plan Patient is a 49-year-old male with Maria A's gangrene status post numerous debridements, Patient is scheduled for reexamination in the OR today. Consent has been obtained. Continue to monitor postoperatively. Digitally Signed by WILLA RODARTE MD on 04/18/2024 09:[address] [facility] CenterPvoqzjfb07-20-2507 NoteSinus or ectopic atrial tachycardia Right bundle branch block Electronic Signature: NICOLASA SAINI MD 04/19/2024 17:01:04[facility] 05-30-2024 Note ORIGINAL EXAMINATION: ONE XRAY VIEW OF THE CHEST 2024 6:07 pm COMPARISON: Same day chest x-ray from 5:49 a.m. HISTORY: ORDERING SYSTEM PROVIDED HISTORY: Reason for Exam: et tube adjustment FINDINGS: Endotracheal tube tip approximately 5.3 cm above the elena. Enteric tube is not well visualized but the tip is below the level the diaphragm out of field of view. Stable position of the right IJ central catheter. Cardiomediastinal contours stable. Stable band like atelectasis within the left lower lung. No focal consolidation or pulmonary edema. No pneumothorax or pleural effusion. No acute osseous abnormality. IMPRESSION: Endotracheal tube tip approximately 5.3 cm above the elena. Other life support devices as above. No significant interval change from the prior study. I have personally reviewed the images of this examination and agree with the resident's findings and interpretation. Interpreted by: Isaías Santana MD Preliminary Report By: Harry Morgan Electronically signed By Isaías Santana MD Dictated Date: 2024 6:24:13 PM Prelim Date: 2024 6:26:26 PM Sign Date: 2024 7:09:39 PM Ordering Provider: YAHAIRA PADRONKettering [facility] So[facility] [id number] Note If ancillary studies were utilized, the following Laboratory Developed Test (LDT) disclaimer will apply: Under CLIA requirements, [facility] is qualified to perform high complexity testing. For all ancillary stains, positive and negative controls stain appropriately. Performance characteristics of immunohistochemical and chromogenic in-situ hybridization tests have been determined by [facility]. These tests are used for clinical purposes, They should not be regarded as investigational or for research. [facility] 05-30-2024 Note ORIGINAL EXAMINATION: ONE XRAY VIEW OF THE CHEST2024 6:00 am COMPARISON: Chest x-ray 04/16/2024 HISTORY: ORDERING SYSTEM PROVIDED HISTORY: Reason for Exam: resp failure FINDINGS: The patient is rotated. Endotracheal tube tip projects 5.9 cm above the elena. Similar position of the right-sided central venous catheter. An enteric tube is seen crossing the diaphragm near midline with the tip not included in the field of view. The lungs are hypoventilated with similar bibasilar atelectasis. No pleural effusion or visible pneumothorax. Stable cardiomediastinal silhouette. IMPRESSION: No significant interval change. I have personally reviewed the images of this examination, and agree with the resident's findings and interpretation. Interpreted by: Antonio Lindsey MD Preliminary Report By: Jr Castañeda Electronically signed By Antonio Lindsey MD Dictated Date: 2024 6:03:50 AM Prelim Date: 2024 6:06:44 AM Sign Date: 2024 6:09:02 AM Ordering Provider: TUYET REISMer[facility] Health St. [facility] [id number] Nurse Progress note In a search for NOK today, I was told there was an aunt Rosa and Uncle Huseyin Yoon in [facility].[phone] I called and left a message to please call us back regarding Gurinder, who is a patient in the ICU here. I was also given a name of a brother, Carmelo Benitez in [facility]. I did an onlinepeople finders search which tuned up 5 Carmelo Benitezs near [facility]. 2 were disconnected, one wrong number, and one was the wrong Carmelo, and I left a voicemail for the 5th one to please call us. Digitally Signed by CELSO Gomez on 04/16/2024 02:[address] [facility] [id number] Evaluation + Plan noteExtracted from: Title:History and Physical Author:WILY CARMEN APRN-QUAHOGGER Date:04/16/24 1. Claire's gangrene with significant leukocytosis and bandemia 2. Uncompensated metabolic acidosis received 2 A IV push sodium bicarbonate and initiated on sodium bicarbonate drip 3. Respiratory failure requiring mechanical ventilation 4. Acute kidney injury on chronic kidney disease baseline creatinine 2.6 currently 5.0 5. Hyperkalemia with potassium level of 8 secondary to above status post hyperkalemia cocktail and initiation of sodium bicarbonate drip. Repeat BMP pending 6. Septic shock status post 30mL/kg IV fluid resuscitation now necessitating initiation of pressors for hemodynamic instability. Blood cultures and urine culture pending. 7. Uncontrolled diabetes mellitus previous hemoglobin A1c (03/09/2024) greater than 15.5 glucose level on presentation 371. Prescribed Home regimen includes Lantus, glimepiride and Jardiance 8. Medical nonadherence patient is reportedly nonadherent with diabetic regimen 9. Hyponatremia in the setting of hyperglycemia 10. History of tobaccoism obesity, hypertension, hyperlipidemia, neuropathy and Charcot foot Plan: 1. Observation and monitoring surgical ICU 2. Stat urology and general surgery consult plan for emergent surgical intervention 4. Continue vancomycin, Zosyn, and clindamycin 5. Continue with mechanical ventilation with propofol for sedation and intermittent fentanyl for pain control. RASS goal -1. However increased respiratory rate to 26 to assist with uncompensated metabolic acidosis 6. Obtain stat ABG, BMP, lactic acid and EKG 7. Continue D5W with 150 mEq sodium bicarbonate at 150 mL/hr. May require intermittent pushes of sodium bicarbonate. 8. Consult nephrology 9. Tight blood glucose control with critical care glycemic protocol 10. SCDs for DVT prophylaxis Protonix for GI prophylaxis Case discussed with on-call welder fitter arc Dr. Mckeon Addendum by EMANUEL MALHOTRA MD on April 16, 2024 08:23:36 EDT Patient was seen and examined and discussed with the critical care team. I agree with the assessment and plan as detailed in Ms. Kermit APRN's note which I reviewed above. In addition, would like to add the following: Briefly, Gurinder is a 48-year-old male past medical history obesity, tobacco abuse and uncontrolled type 2 diabetes last A1c 15.5, neuropathy, Charcot foot, dyslipidemia and tobacco abuse who was admitted to the hospital from 03/08/2024 through 03/11/2024 secondary to fall and hyperglycemia. It was recommended that he go to a fpc facility for rehab however he declined and eventually left AMA. He then came back to [facility] 04/06/2024 with penile pain and swelling and was diagnosed with balanitis and discharged on topical clotrimazole cream. He came back to [facility] 04/15/2024 with worsening penile pain and testicular pain with perineal pain, nausea and vomiting. He was found to have erythema of the scrotum with areas of necrosis. Initial pH was 7.2 with a white count of 46 and hemoglobin of 9.2 and 10% bands on the differential. He was hyponatremic at 126 with a potassium level of 8, bicarb of 14, BUN of 85 and a creatinine of 5. That being said, lactic acid was actually normal at 1.2. He received hyperkalemia cocktail as well as fluid bolus and was started on vancomycin, Zosyn and clindamycin. In addition, he received 2 A of sodium bicarb and was placed on a bicarb drip. CT abdomen pelvis without contrast showed moderate soft tissue swelling and skin thickening in the right gluteal region extending along the perineum to the scrotum. He was then electively intubated secondary to increased work of breathing. He was transferred to [facility] for further management and urologic evaluation of his Claire's gangrene. He is now postoperative day #0 status post debridement of Claire's gangrene. This morning he remains on mechanical ventilatory support sedated with propofol at 10. He is on Levophed at 8 mcg/min. Most recent ABG shows a pH of 7.28 with a pCO2 of 33 and a pO2 of 137. He is on an insulin drip at 2.5 units/h. His past medical history, family history and social history was reviewed and is as per documented above. On exam: General-no acute distress, sedated HEENT-normocephalic, atraumatic, intubated endotracheally, right IJ triple-lumen catheter in place Pulmonary-somewhat coarse but no wheeze, good air movement bilaterally Cardiovascular-regular, no appreciable murmurs, gallops or rubs Abdomen-soft, nontender, bowel sounds hypoactive, scrotal site packed Extremities-no cyanosis, clubbing or significant edema, he has a left radial arterial line in place Neurologic-nonfocal, sedated Impression: 1. Claire's gangrene postoperative day #0 status post debridement 2. Severe sepsis with septic shock 3. Acute kidney injury 4. Metabolic acidosis 5. Hyperkalemia 6. Acute respiratory failure 7. Poorly controlled diabetes, A1c 15.5 8. Medical noncompliance, recently left AGAINST MEDICAL ADVICE 9. Other past medical history includes hypertension, dyslipidemia, tobacco abuse, obesity, neuropathy and Charcot foot Plan: 1. Continue current mode of mechanical ventilatory support with sedation, glycemic and ventilator associated pneumonia prevention protocols 2. Continue broad-spectrum antibiotics with Zosyn, vancomycin and clindamycin for the time being 3. Nephrology has been consulted, he is on a bicarb drip at 150 mL/h 4. Plan is to return to the OR tomorrow for repeat debridement 5. Continue pressor support, currently on Levophed. He does have a central line 6. Continue insulin drip 7. CBC and BMP in morning Overall prognosis guarded. No family available for update. Total critical care time today 35 minutes Diagnostic Tests Pending * Culture Respiratory with Gram Stain 04/25/[address] [facility] 05-29-2024 Surgery Consult note Date of Service 04/16/2024 Reason for Consultation Fourniers gangrene Referring Physician Housemaid History of Present Illness This is a split shared visit between myself and Dr. Rodarte This patient was a 48-year-old male with a past medical history significant for uncontrolled type 2diabetes, hypercholesterolemia, and GERD who presented to the [place] emergency department on 04/15/2024 with complaints of scrotal edema with concern for necrosis and complaints of nausea/vomiting. CT scan imaging of the abdomen and pelvis was obtained showing moderate soft tissue swelling and skin thickening most pronounced in the right gluteal region with extension along the perineum to the scrotum compatible with cellulitis, there was no localized fluid collection/abscess identified and no subcutaneous air to suggest Claire's gangrene. His laboratory studies were significant for a whiteblood cell count of 46. Potassium was elevated at 8.0 and his creatinine was 5.01. On examination in the emergency department, his scrotum was noted to be erythematous with areas of necrosis, he had firmness tracking down his perineum into the right gluteal area. He received a hyperkalemia cocktailand was started on the sepsis protocol. He received IV antibiotics and due to increased work of breathing, he was electively intubated in the emergency department and was transferred to [facility] for further care/management. He was seen and evaluated by the urologist early this morning and was taken to the operating room where he underwent debridement of the Claire's gangrene. On examination, he was seen resting supine in bed in the surgical intensive care unit. He remained mechanically ventilated and sedated. He had gauze packing noted to the pubis/scrotal wound. Morning laboratory data, vital signs and I/O have been reviewed. His white blood cell count has downward trended to 31.4. Hemoglobin 7.0. Creatinine 3.86. Nephrology is following secondary to his electrolyte abnormalities and his acute kidney injury. Review of Systems Unable to obtain Physical Exam Vitals and Measurements T: 36.9 C (Oral) TMIN: 35.2 C (Rectal) TMAX: 37.0 C (Oral) HR: 104 (Monitored) RR: 26 BP: 101/62 BP: 111/56(Line) SpO2: 100% WT: 125 kg Weight Dosing Weight: 125 kg (04/16/24) General: Mechanically ventilated and sedated. Supine in bed. HEENT: Endotracheal and orogastric tubes present. Heart: Tachycardic. S1 and S2 present. Lungs: Chest rise symmetrical. Respirations unlabored. Lungs clear upon auscultation. Abdomen/Pelvis: Soft and nontender. Nondistended. No rigidity or guarding noted. Packing in place to pubic region. : Hernandez catheter in place. Psychiatric: Sedated. Lab Results 04/16 06:44 Potassium Level: 5.8 H 04/16 05:05 Protime: 15.8 H PT International Ratio: 1.4 Glucose Level: 421 C Sodium Level: 134 L Potassium Level: 6.3 C BUN: 79.0 H Creatinine Lvl (s): 3.82 H 04/16 04:14 Glucose Level: 354 H Sodium Level: 133 L Potassium Level: 6.8 C BUN: 79.0 H Creatinine Lvl (s): 3.79 H 04/16 01:52 WBC: 44.8 H Hgb: 7.5 L Hct: 24.4 L Platelet: 485 H Potassium Level: 7.1 C Imaging Results and Diagnostics XR Chest 1 View Result Date: April 16, 2024 Verified By: ANTONIO LINDSEY MD CLINICAL STATEMENT: IMPRESSION: Interval placement of a right-sided central venous catheter with tip projecting over the mid to lower SVC. Other support devices as above. Otherwise no significant interval change. Preliminary Report was Dictated by a Resident XR Enteric Tube Placement Result Date: April 16, 2024 Verified By: ANTONIO LINDSEY MD CLINICAL STATEMENT: IMPRESSION: 1. Endotracheal tube and enteric tube are in satisfactory position.2. Increasing left basilar atelectasis. XR Chest 1 View Result Date: April 16, 2024 Verified By: ANTONIO LINDSEY MD CLINICAL STATEMENT: IMPRESSION: 1. Endotracheal tube and enteric tube are in satisfactory position.2. Increasing left basilar atelectasis. EKG EC04/16/24: Sinus rhythm RIGHT BUNDLE BRANCH BLOCK INFERIOR MYOCARDIAL INFARCTION, POSSIBLY ACUTE WARNING: DATA QUALITY MAY AFFECT INTERPRETATION Electronic Signature: NGOC MIN MD 04/16/2024 09:51:56 Assessment/Plan This patient is a 48-year-old male who was transferred to [facility] after he presented to the [facility] emergency department on 04/15/2024 with scrotal edema, penile pain, and concern for necrosis. He also had additional complaints of nausea and vomiting. He was electively intubated inthe emergency department secondary to increased work of breathing. On arrival to 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 He is now postoperative day 0 following debridement of the Claire's gangrene with urology. General surgery was asked to evaluate the patient secondary to concern for firmness tracking down his perineum into the right gluteal region. Emergency department workup and current laboratory studies have been reviewed. 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 Continued management per urology. The case has been discussed with Dr. 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 Medications Inpatient clindamycin, 600 mg= 50 mL, IV Piggyback, q6h Dextrose, 25 gram(s)= 50 mL, IV Push, AsDirected, PRN Dextrose 5% Premix Diluent 1,000 mL + sodium bicarbonate for IV 150 mEq Dextrose 50% IV Push, 12.5 gram(s)= 25 mL, IV Push, AsDirected, PRN DuoNeb, 3 mL, Inhalation, q2hRT, PRN HumuLIN R, sliding scale insulin, Subcutaneous, q4h, PRN Insulin Regular for IV 100 unit(s) + NS Premix Diluent 100 mL Lokelma, 10 gram(s)= 1 packet(s), Oral, q8hr, PRN Norepinephrine for IV 8 mg [5 mcg/min] + NS PMX titrate 250 mL Peridex 0.12% oral rinse liquid, 15 mL, Swish & Spit, QID Propofol for IV 1,000 mg [10 mcg/kg/min] + IV Premix Diluent titrate 100 mL Protonix, 40 mg, IV Push, qDayAC Puralube ophth solution, 1 drop(s), Eyes, both, q8hr Puralube ophth solution, 1 drop(s), Eyes, both, AsDirected, PRN Puralube ophthalmic ointment, 1 artemio, Eyes, both, q8hr Puralube ophthalmic ointment, 1 artemio, Eyes, both, AsDirected, PRN Sublimaze, 25 mcg= 0.5 mL, IV Push, q15min, PRN Vancomycin - RANDOM level reminder, 1 EA, Miscellaneous, q12hr VANCOMYCIN -- pharmacy re-dosing by random level, 1 EA, Miscellaneous, Daily Zosyn, 3.375 gram(s)= 50 mL, IV Piggyback, q8h Home amLODIPine 10 mg oral tablet, 10 mg= 1 tab(s), Oral, qDay clotrimazole 1% topical cream, 1 artemio, Topical, BID gabapentin 100 mg oral capsule, 300 mg= 3 cap(s), Oral, qDay glimepiride 4 mg oral tablet, 8 mg= 2 tab(s), Oral, with breakfast Jardiance 10 mg oral tablet, 10 mg= 1 tab(s), Oral, qAM, Investigating Lantus Solostar Pen 100 units/mL 3 mL Pen, 30 unit(s), Subcutaneous, qHS lisinopril 20 mg oral tablet, 20 mg= 1 tab(s), Oral, qDay omeprazole 40 mg oral delayed release capsule, 40 mg= 1 cap(s), Oral, BID rosuvastatin 10 mg oral tablet, 10 mg= 1 tab(s), qDay Allergies ampicillin penicillin Social History Smoking Status - 08/17/2018 Current every day smoker Alcohol - No Risk, 09/19/2020 Use: Current. Frequency: 1-2 times per year., 07/07/2023 Home/Environment Living situation: Home/Independent. Safe place to go: Yes. Financial concerns: No. Domestic Concerns: None., 03/08/2024 Nutrition/Health Type of diet: Regular. Appetite Good. Eating Difficulties None., 03/08/2024 Substance Abuse - Denies Substance Abuse, 08/17/2018 Use: Never., 04/30/2019 Tobacco - No Risk, 09/19/2020 Tobacco Use: 10 or more cigarettes (1/2 pack or more)/day in last 30 days. Type: Cigarettes., 04/30/2019 Family History Patient was adopted Alcohol abuse: Father. Diabetes: Father. Health Status Family Member(s) Immunizations tetanus/diphth/pertuss (Tdap) adult/adol: 0.5 mL (08/17/18) Digitally Signed by AKIRA NORMAN on 04/16/2024 12:[address] [id number] Surgery Consult note Date of Service 04/16/2024 Reason for Consultation Fourniers gangrene Referring Physician Housemaid History of Present Illness This is a split shared visit between myself and Dr. Rodarte This patient was a 48-year-old male with a past medical history significant for uncontrolled type 2diabetes, hypercholesterolemia, and GERD who presented to the [place] emergency department on 04/15/2024 with complaints of scrotal edema with concern for necrosis and complaints of nausea/vomiting. CT scan imaging of the abdomen and pelvis was obtained showing moderate soft tissue swelling and skin thickening most pronounced in the right gluteal region with extension along the perineum to the scrotum compatible with cellulitis, there was no localized fluid collection/abscess identified and no subcutaneous air to suggest Claire's gangrene. His laboratory studies were significant for a whiteblood cell count of 46. Potassium was elevated at 8.0 and his creatinine was 5.01. On examination in the emergency department, his scrotum was noted to be erythematous with areas of necrosis, he had firmness tracking down his perineum into the right gluteal area. He received a hyperkalemia cocktailand was started on the sepsis protocol. He received IV antibiotics and due to increased work of breathing, he was electively intubated in the emergency department and was transferred to [facility] for further care/management. He was seen and evaluated by the urologist early this morning and was taken to the operating room where he underwent debridement of the Claire's gangrene. On examination, he was seen resting supine in bed in the surgical intensive care unit. He remained mechanically ventilated and sedated. He had gauze packing noted to the pubis/scrotal wound. Morning laboratory data, vital signs and I/O have been reviewed. His white blood cell count has downward trended to 31.4. Hemoglobin 7.0. Creatinine 3.86. Nephrology is following secondary to his electrolyte abnormalities and his acute kidney injury. Review of Systems Unable to obtain Physical Exam Vitals and Measurements T: 36.9 C (Oral) TMIN: 35.2 C (Rectal) TMAX: 37.0 C (Oral) HR: 104 (Monitored) RR: 26 BP: 101/62 BP: 111/56(Line) SpO2: 100% WT: 125 kg Weight Dosing Weight: 125 kg (04/16/24) General: Mechanically ventilated and sedated. Supine in bed. HEENT: Endotracheal and orogastric tubes present. Heart: Tachycardic. S1 and S2 present. Lungs: Chest rise symmetrical. Respirations unlabored. Lungs clear upon auscultation. Abdomen/Pelvis: Soft and nontender. Nondistended. No rigidity or guarding noted. Packing in place to pubic region. : Hernandez catheter in place. Psychiatric: Sedated. Lab Results 04/16 06:44 Potassium Level: 5.8 H 04/16 05:05 Protime: 15.8 H PT International Ratio: 1.4 Glucose Level: 421 C Sodium Level: 134 L Potassium Level: 6.3 C BUN: 79.0 H Creatinine Lvl (s): 3.82 H 04/16 04:14 Glucose Level: 354 H Sodium Level: 133 L Potassium Level: 6.8 C BUN: 79.0 H Creatinine Lvl (s): 3.79 H 04/16 01:52 WBC: 44.8 H Hgb: 7.5 L Hct: 24.4 L Platelet: 485 H Potassium Level: 7.1 C Imaging Results and Diagnostics XR Chest 1 View Result Date: April 16, 2024 Verified By: ANTONIO LINDSEY MD CLINICAL STATEMENT: IMPRESSION: Interval placement of a right-sided central venous catheter with tip projecting over the mid to lower SVC. Other support devices as above. Otherwise no significant interval change. Preliminary Report was Dictated by a Resident XR Enteric Tube Placement Result Date: April 16, 2024 Verified By: ANTONIO LINDSEY MD CLINICAL STATEMENT: IMPRESSION: 1. Endotracheal tube and enteric tube are in satisfactory position.2. Increasing left basilar atelectasis. XR Chest 1 View Result Date: April 16, 2024 Verified By: ANTONIO LINDSEY MD CLINICAL STATEMENT: IMPRESSION: 1. Endotracheal tube and enteric tube are in satisfactory position.2. Increasing left basilar atelectasis. EKG EC04/16/24: Sinus rhythm RIGHT BUNDLE BRANCH BLOCK INFERIOR MYOCARDIAL INFARCTION, POSSIBLY ACUTE WARNING: DATA QUALITY MAY AFFECT INTERPRETATION Electronic Signature: NGOC MIN MD 04/16/2024 09:51:56 Assessment/Plan This patient is a 48-year-old male who was transferred to [facility] after he presented to the [facility] emergency department on 04/15/2024 with scrotal edema, penile pain, and concern for necrosis. He also had additional complaints of nausea and vomiting. He was electively intubated inthe emergency department secondary to increased work of breathing. On arrival to 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 He is now postoperative day 0 following debridement of the Claire's gangrene with urology. General surgery was asked to evaluate the patient secondary to concern for firmness tracking down his perineum into the right gluteal region. Emergency department workup and current laboratory studies have been reviewed. 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 Continued management per urology. The case has been discussed with Dr. 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 Medications Inpatient clindamycin, 600 mg= 50 mL, IV Piggyback, q6h Dextrose, 25 gram(s)= 50 mL, IV Push, AsDirected, PRN Dextrose 5% Premix Diluent 1,000 mL + sodium bicarbonate for IV 150 mEq Dextrose 50% IV Push, 12.5 gram(s)= 25 mL, IV Push, AsDirected, PRN DuoNeb, 3 mL, Inhalation, q2hRT, PRN HumuLIN R, sliding scale insulin, Subcutaneous, q4h, PRN Insulin Regular for IV 100 unit(s) + NS Premix Diluent 100 mL Lokelma, 10 gram(s)= 1 packet(s), Oral, q8hr, PRN Norepinephrine for IV 8 mg [5 mcg/min] + NS PMX titrate 250 mL Peridex 0.12% oral rinse liquid, 15 mL, Swish & Spit, QID Propofol for IV 1,000 mg [10 mcg/kg/min] + IV Premix Diluent titrate 100 mL Protonix, 40 mg, IV Push, qDayAC Puralube ophth solution, 1 drop(s), Eyes, both, q8hr Puralube ophth solution, 1 drop(s), Eyes, both, AsDirected, PRN Puralube ophthalmic ointment, 1 artemio, Eyes, both, q8hr Puralube ophthalmic ointment, 1 artemio, Eyes, both, AsDirected, PRN Sublimaze, 25 mcg= 0.5 mL, IV Push, q15min, PRN Vancomycin - RANDOM level reminder, 1 EA, Miscellaneous, q12hr VANCOMYCIN -- pharmacy re-dosing by random level, 1 EA, Miscellaneous, Daily Zosyn, 3.375 gram(s)= 50 mL, IV Piggyback, q8h Home amLODIPine 10 mg oral tablet, 10 mg= 1 tab(s), Oral, qDay clotrimazole 1% topical cream, 1 artemio, Topical, BID gabapentin 100 mg oral capsule, 300 mg= 3 cap(s), Oral, qDay glimepiride 4 mg oral tablet, 8 mg= 2 tab(s), Oral, with breakfast Jardiance 10 mg oral tablet, 10 mg= 1 tab(s), Oral, qAM, Investigating Lantus Solostar Pen 100 units/mL 3 mL Pen, 30 unit(s), Subcutaneous, qHS lisinopril 20 mg oral tablet, 20 mg= 1 tab(s), Oral, qDay omeprazole 40 mg oral delayed release capsule, 40 mg= 1 cap(s), Oral, BID rosuvastatin 10 mg oral tablet, 10 mg= 1 tab(s), qDay Allergies ampicillin penicillin Social History Smoking Status - 08/17/2018 Current every day smoker Alcohol - No Risk, 09/19/2020 Use: Current. Frequency: 1-2 times per year., 07/07/2023 Home/Environment Living situation: Home/Independent. Safe place to go: Yes. Financial concerns: No. Domestic Concerns: None., 03/08/2024 Nutrition/Health Type of diet: Regular. Appetite Good. Eating Difficulties None., 03/08/2024 Substance Abuse - Denies Substance Abuse, 08/17/2018 Use: Never., 04/30/2019 Tobacco - No Risk, 09/19/2020 Tobacco Use: 10 or more cigarettes (1/2 pack or more)/day in last 30 days. Type: Cigarettes., 04/30/2019 Family History Patient was adopted Alcohol abuse: Father. Diabetes: Father. Health Status Family Member(s) Immunizations tetanus/diphth/pertuss (Tdap) adult/adol: 0.5 mL (08/17/18) Digitally Signed by AKIRA NORMAN on 04/16/2024 12:[address] [id number] Surgery Consult note Date of Service 04/16/2024 Reason for Consultation Fourniers gangrene Referring Physician Housemaid History of Present Illness This is a split shared visit between myself and Dr. Rodarte This patient was a 48-year-old male with a past medical history significant for uncontrolled type 2diabetes, hypercholesterolemia, and GERD who presented to the [place] emergency department on 04/15/2024 with complaints of scrotal edema with concern for necrosis and complaints of nausea/vomiting. CT scan imaging of the abdomen and pelvis was obtained showing moderate soft tissue swelling and skin thickening most pronounced in the right gluteal region with extension along the perineum to the scrotum compatible with cellulitis, there was no localized fluid collection/abscess identified and no subcutaneous air to suggest Claire's gangrene. His laboratory studies were significant for a whiteblood cell count of 46. Potassium was elevated at 8.0 and his creatinine was 5.01. On examination in the emergency department, his scrotum was noted to be erythematous with areas of necrosis, he had firmness tracking down his perineum into the right gluteal area. He received a hyperkalemia cocktailand was started on the sepsis protocol. He received IV antibiotics and due to increased work of breathing, he was electively intubated in the emergency department and was transferred to [facility] for further care/management. He was seen and evaluated by the urologist early this morning and was taken to the operating room where he underwent debridement of the Claire's gangrene. On examination, he was seen resting supine in bed in the surgical intensive care unit. He remained mechanically ventilated and sedated. He had gauze packing noted to the pubis/scrotal wound. Morning laboratory data, vital signs and I/O have been reviewed. His white blood cell count has downward trended to 31.4. Hemoglobin 7.0. Creatinine 3.86. Nephrology is following secondary to his electrolyte abnormalities and his acute kidney injury. Review of Systems Unable to obtain Physical Exam Vitals and Measurements T: 36.9 C (Oral) TMIN: 35.2 C (Rectal) TMAX: 37.0 C (Oral) HR: 104 (Monitored) RR: 26 BP: 101/62 BP: 111/56(Line) SpO2: 100% WT: 125 kg Weight Dosing Weight: 125 kg (04/16/24) General: Mechanically ventilated and sedated. Supine in bed. HEENT: Endotracheal and orogastric tubes present. Heart: Tachycardic. S1 and S2 present. Lungs: Chest rise symmetrical. Respirations unlabored. Lungs clear upon auscultation. Abdomen/Pelvis: Soft and nontender. Nondistended. No rigidity or guarding noted. Packing in place to pubic region. : Hernandez catheter in place. Psychiatric: Sedated. Lab Results 04/16 06:44 Potassium Level: 5.8 H 04/16 05:05 Protime: 15.8 H PT International Ratio: 1.4 Glucose Level: 421 C Sodium Level: 134 L Potassium Level: 6.3 C BUN: 79.0 H Creatinine Lvl (s): 3.82 H 04/16 04:14 Glucose Level: 354 H Sodium Level: 133 L Potassium Level: 6.8 C BUN: 79.0 H Creatinine Lvl (s): 3.79 H 04/16 01:52 WBC: 44.8 H Hgb: 7.5 L Hct: 24.4 L Platelet: 485 H Potassium Level: 7.1 C Imaging Results and Diagnostics XR Chest 1 View Result Date: April 16, 2024 Verified By: ANTONIO LINDSEY MD CLINICAL STATEMENT: IMPRESSION: Interval placement of a right-sided central venous catheter with tip projecting over the mid to lower SVC. Other support devices as above. Otherwise no significant interval change. Preliminary Report was Dictated by a Resident XR Enteric Tube Placement Result Date: April 16, 2024 Verified By: ANTONIO LINDSEY MD CLINICAL STATEMENT: IMPRESSION: 1. Endotracheal tube and enteric tube are in satisfactory position.2. Increasing left basilar atelectasis. XR Chest 1 View Result Date: April 16, 2024 Verified By: ANTONIO LINDSEY MD CLINICAL STATEMENT: IMPRESSION: 1. Endotracheal tube and enteric tube are in satisfactory position.2. Increasing left basilar atelectasis. EKG EC04/16/24: Sinus rhythm RIGHT BUNDLE BRANCH BLOCK INFERIOR MYOCARDIAL INFARCTION, POSSIBLY ACUTE WARNING: DATA QUALITY MAY AFFECT INTERPRETATION Electronic Signature: NGOC MIN MD 04/16/2024 09:51:56 Assessment/Plan This patient is a 48-year-old male who was transferred to [facility] after he presented to the [facility] emergency department on 04/15/2024 with scrotal edema, penile pain, and concern for necrosis. He also had additional complaints of nausea and vomiting. He was electively intubated inthe emergency department secondary to increased work of breathing. On arrival to 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 He is now postoperative day 0 following debridement of the Claire's gangrene with urology. General surgery was asked to evaluate the patient secondary to concern for firmness tracking down his perineum into the right gluteal region. Emergency department workup and current laboratory studies have been reviewed. 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 Continued management per urology. The case has been discussed with Dr. 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 Medications Inpatient clindamycin, 600 mg= 50 mL, IV Piggyback, q6h Dextrose, 25 gram(s)= 50 mL, IV Push, AsDirected, PRN Dextrose 5% Premix Diluent 1,000 mL + sodium bicarbonate for IV 150 mEq Dextrose 50% IV Push, 12.5 gram(s)= 25 mL, IV Push, AsDirected, PRN DuoNeb, 3 mL, Inhalation, q2hRT, PRN HumuLIN R, sliding scale insulin, Subcutaneous, q4h, PRN Insulin Regular for IV 100 unit(s) + NS Premix Diluent 100 mL Lokelma, 10 gram(s)= 1 packet(s), Oral, q8hr, PRN Norepinephrine for IV 8 mg [5 mcg/min] + NS PMX titrate 250 mL Peridex 0.12% oral rinse liquid, 15 mL, Swish & Spit, QID Propofol for IV 1,000 mg [10 mcg/kg/min] + IV Premix Diluent titrate 100 mL Protonix, 40 mg, IV Push, qDayAC Puralube ophth solution, 1 drop(s), Eyes, both, q8hr Puralube ophth solution, 1 drop(s), Eyes, both, AsDirected, PRN Puralube ophthalmic ointment, 1 artemio, Eyes, both, q8hr Puralube ophthalmic ointment, 1 artemio, Eyes, both, AsDirected, PRN Sublimaze, 25 mcg= 0.5 mL, IV Push, q15min, PRN Vancomycin - RANDOM level reminder, 1 EA, Miscellaneous, q12hr VANCOMYCIN -- pharmacy re-dosing by random level, 1 EA, Miscellaneous, Daily Zosyn, 3.375 gram(s)= 50 mL, IV Piggyback, q8h Home amLODIPine 10 mg oral tablet, 10 mg= 1 tab(s), Oral, qDay clotrimazole 1% topical cream, 1 artemio, Topical, BID gabapentin 100 mg oral capsule, 300 mg= 3 cap(s), Oral, qDay glimepiride 4 mg oral tablet, 8 mg= 2 tab(s), Oral, with breakfast Jardiance 10 mg oral tablet, 10 mg= 1 tab(s), Oral, qAM, Investigating Lantus Solostar Pen 100 units/mL 3 mL Pen, 30 unit(s), Subcutaneous, qHS lisinopril 20 mg oral tablet, 20 mg= 1 tab(s), Oral, qDay omeprazole 40 mg oral delayed release capsule, 40 mg= 1 cap(s), Oral, BID rosuvastatin 10 mg oral tablet, 10 mg= 1 tab(s), qDay Allergies ampicillin penicillin Social History Smoking Status - 08/17/2018 Current every day smoker Alcohol - No Risk, 09/19/2020 Use: Current. Frequency: 1-2 times per year., 07/07/2023 Home/Environment Living situation: Home/Independent. Safe place to go: Yes. Financial concerns: No. Domestic Concerns: None., 03/08/2024 Nutrition/Health Type of diet: Regular. Appetite Good. Eating Difficulties None., 03/08/2024 Substance Abuse - Denies Substance Abuse, 08/17/2018 Use: Never., 04/30/2019 Tobacco - No Risk, 09/19/2020 Tobacco Use: 10 or more cigarettes (1/2 pack or more)/day in last 30 days. Type: Cigarettes., 04/30/2019 Family History Patient was adopted Alcohol abuse: Father. Diabetes: Father. Health Status Family Member(s) Immunizations tetanus/diphth/pertuss (Tdap) adult/adol: 0.5 mL (08/17/18) Digitally Signed by AKIRA NORMAN on 04/16/2024 12:[address] [facility] [id number] Note If ancillary studies were utilized, the following Laboratory Developed Test (LDT) disclaimer will apply: Under CLIA requirements, [facility] is qualified to perform high complexity testing. For all ancillary stains, positive and negative controls stain appropriately. Performance characteristics of immunohistochemical and chromogenic in-situ hybridization tests have been determined by [facility]. These tests are used for clinical purposes, They should not be regarded as investigational or for research. [facility] 05-29-2024 Note If ancillary studies were utilized, the following Laboratory Developed Test (LDT) disclaimer will apply: Under CLIA requirements, [facility] is qualified to perform high complexity testing. For all ancillary stains, positive and negative controls stain appropriately. Performance characteristics of immunohistochemical and chromogenic in-situ hybridization tests have been determined by [facility]. These tests are used for clinical purposes, They should not be regarded as investigational or for research. [facility] 05-29-2024 Note If ancillary studies were utilized, the following Laboratory Developed Test (LDT) disclaimer will apply: Under CLIA requirements, [facility] is qualified to perform high complexity testing. For all ancillary stains, positive and negative controls stain appropriately. Performance characteristics of immunohistochemical and chromogenic in-situ hybridization tests have been determined by [facility]. These tests are used for clinical purposes, They should not be regarded as investigational or for research. [facility] 05-29-2024 Note If ancillary studies were utilized, the following Laboratory Developed Test (LDT) disclaimer will apply: Under CLIA requirements, [facility] is qualified to perform high complexity testing. For all ancillary stains, positive and negative controls stain appropriately. Performance characteristics of immunohistochemical and chromogenic in-situ hybridization tests have been determined by [facility]. These tests are used for clinical purposes, They should not be regarded as investigational or for research. [facility] 05-29-2024 Note If ancillary studies were utilized, the following Laboratory Developed Test (LDT) disclaimer will apply: Under CLIA requirements, [facility] is qualified to perform high complexity testing. For all ancillary stains, positive and negative controls stain appropriately. Performance characteristics of immunohistochemical and chromogenic in-situ hybridization tests have been determined by [facility]. These tests are used for clinical purposes, They should not be regarded as investigational or for research. [facility] 05-29-2024 Note If ancillary studies were utilized, the following Laboratory Developed Test (LDT) disclaimer will apply: Under CLIA requirements, [facility] is qualified to perform high complexity testing. For all ancillary stains, positive and negative controls stain appropriately. Performance characteristics of immunohistochemical and chromogenic in-situ hybridization tests have been determined by [facility]. These tests are used for clinical purposes, They should not be regarded as investigational or for research. 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 During that admission the patient's hemoglobin A1c was found to be greater than 15.5 and after evaluation physical therapy was recommended to be discharged to [facility] facility for rehabilitation and strengthening which he declined and was discharged AMA. He was also evaluated at [facility] emergency department on 04/06/2024 with penile pain and swelling. He was diagnosed with balanitis and discharged with topical clotrimazole cream. Patient Marley presented to [facility] ER 04/15/2024 with complaints of increased penile pain, new testicular pain, perineal pain, and nausea vomiting. Physical examination emergency department revealed his scrotum with erythema, areas of necrosis, and firmness tracking down his perineurium into the right gluteal area. Laboratory investigations revealed pH of 7.2, WBC 46, hemoglobin 9.2, hematocrit 28.5, platelet count 550, 10% bands, positive UA,glucose level 371, sodium level 126, potassium level 8.0, bicarb 14, BUN 85, creatinine 5.01 and lactic acid 1.2. The patient received hyperkalemia cocktail and sepsis protocol fluid bolus. He was also administered IV vancomycin, IV Zosyn, and IV clindamycin. He also received 2 A of sodium bicarb and initiated on a sodium bicarbonate drip. CT scan of the abdomen and pelvis was ordered without contrast given his significant GENE which demonstrated moderate soft tissue swelling and skin thickeningmost pronounced the right gluteal region with extension along the perineum to the scrotum. ABG obtained showed pH of 7.19, pCO2 of 27, pO2 82 and O2 sat of 96%. The patient was reportedly having increased work of breathing and clinically looking worse and was electively intubated in the emergency de partment with consent given by the patient to the ED physician. After discussion with on-call urologist Dr. Bernal and on-call surgeon Dr. 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 Upon arrival to the surgical ICU the patient is intubated, sedate and hypotensive with systolic blood pressure 86 mmHg and MAP 55 mmHg and subsequently Levophed was initiated. Unable to locate any family member. Phone numbers for emergency contact listed on previous admissions are not working. Review of Systems Unable to complete given patient's current clinical condition Physical Exam Vitals and Measurements T: 35.2 C (Rectal) HR: 99 (Monitored) RR: 29 (Total) RR: 7 (Spontaneous) BP: 91/60 SpO2: 97% No qualifying data available. General: Intubated, sedate Head: Normocephalic, atraumatic. ENT: PERRLA, eyes: Sclera nonicteric, oral: Mucous membranes dry. Endotracheal tube and orogastric tube present. Neck: Supple, no JVD. Cardiac: Regular rate and rhythm, normal S1-S2, no murmur, rubs, or gallops Respiratory: Lungs clear, diminished. Resps easy, nonlabored Abdomen: Obese, soft, nontender, hypoactive bowel sounds. Urogenital: Significant penile and scrotal edema. Scrotum has significant firmness which tracks into the perineal and right gluteal area. Erythema present along with black necrotic tissue present on the scrotum. Musculoskeletal: No joint deformities, no muscle tenderness Extremities: 1+ pulses, minimal pedal edema Neurological: Sedate Skin: Warm & dry, skin intact Lab Results ABG 04/15/2024 22:40 pH 7.199 pCO2 27.8 pO2 82.4 O2 sat 96% WBC 46.0 Hemoglobin 9.2 Hematocrit 28.5 Platelet 550 Bands 10% INR 1.3 UA grossly positive Glucose 371 Sodium 126 Potassium 8.0 Chloride 97 Bicarb 14 BUN 85 Creatinine 5.01 Calcium 8.4 Albumin level 1.7 Total bilirubin 2.0 Alk phos 231 AST 11 ALT 13 GFR 13 Lactic acid 1.2 Imaging Results and Diagnostics CT abdomen pelvis no contrast 04/15/2024 21:33 IMPRESSION: Moderate soft tissue swelling and skin thickening most pronounced in the right gluteal region with extension along the perineum to the scrotum compatible with cellulitis in the correct clinical setting. No localized fluid collection/abscess identified. No subcutaneous air to suggest Claire gangrene, although the entirety of the scrotum is not included on this study. Trace left pleural effusion with adjacent atelectasis. Mild interlobular septal thickening possibly representing volume overload. 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 Uncompensated metabolic acidosis received 2 A IV push sodium bicarbonate and initiated on sodiumbicarbonate drip 3. Respiratory failure requiring mechanical ventilation 4. Acute kidney injury on chronic kidney disease baseline creatinine 2.6 currently 5.0 5. Hyperkalemia with potassium level of 8 secondary to above status post hyperkalemia cocktail and initiation of sodium bicarbonate drip. Repeat BMP pending 6. Septic shock status post 30mL/kg IV fluid resuscitation now necessitating initiation of pressorsfor hemodynamic instability. Blood cultures and urine culture pending. 7. Uncontrolled diabetes mellitus previous hemoglobin A1c (03/09/2024) greater than 15.5 glucose level on presentation 371. Prescribed Home regimen includes Lantus, glimepiride and Jardiance 8. Medical nonadherence patient is reportedly nonadherent with diabetic regimen 9. Hyponatremia in the setting of hyperglycemia 10. History of tobaccoism obesity, hypertension, hyperlipidemia, neuropathy and Charcot foot Plan: 1. Observation and monitoring surgical ICU 2. Stat urology and general surgery consult plan for emergent surgical intervention 4. Continue vancomycin, Zosyn, and clindamycin 5. Continue with mechanical ventilation with propofol for sedation and intermittent fentanyl for pain control. RASS goal -1. However increased respiratory rate to 26 to assist with uncompensated metabolic acidosis 6. Obtain stat ABG, BMP, lactic acid and EKG 7. Continue D5W with 150 mEq sodium bicarbonate at 150 mL/hr. May require intermittent pushes of sodium bicarbonate. 8. Consult nephrology 9. Tight blood glucose control with critical care glycemic protocol 10. SCDs for DVT prophylaxis Protonix for GI prophylaxis Case discussed with on-call welder fitter arc Dr. Mckeon 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 Medications Home Medications (13) Active amLODIPine 10 mg oral tablet 10 mg = 1 tab(s), Oral, qDay clotrimazole 1% topical cream 1 artemio, Topical, BID gabapentin 100 mg oral capsule 300 mg = 3 cap(s), Oral, qDay glimepiride 4 mg oral tablet 8 mg = 2 tab(s), Oral, qDay Lantus 100 units/mL10 ml vial solution 30 unit(s), Subcutaneous, qHS Lantus Solostar Pen 100 units/mL 3 mL Pen 30 unit(s), Subcutaneous, qHS lisinopril 20 mg oral tablet 20 mg = 1 tab(s), Oral, qDay omeprazole 40 mg oral delayed release capsule 40 mg = 1 cap(s), Oral, BID rosuvastatin 10 mg oral tablet 10 mg = 1 tab(s), qDay TRUE METRIX LINDA GLUCOSE TRUE METRIX GLUCOSE TEST STRIP TRUEPLUS 33G LANCETS TRUPLUS LANC MIS 33G Allergies ampicillin penicillin Social History Smoking Status - 08/17/2018 Current every day smoker Alcohol - No Risk, 09/19/2020 Use: Current. Frequency: 1-2 times per year., 07/07/2023 Home/Environment Living situation: Home/Independent. Safe place to go: Yes. Financial concerns: No. Domestic Concerns: None., 03/08/2024 Nutrition/Health Type of diet: Regular. Appetite Good. Eating Difficulties None., 03/08/2024 Substance Abuse - Denies Substance Abuse, 08/17/2018 Use: Never., 04/30/2019 Tobacco - No Risk, 09/19/2020 Tobacco Use: 10 or more cigarettes (1/2 pack or more)/day in last 30 days. Type: Cigarettes., 04/30/2019 Family History Patient was adopted Alcohol abuse: Father. Diabetes: Father. Health Status Family Member(s) Immunizations tetanus/diphth/pertuss (Tdap) adult/adol: 0.5 mL (08/17/18) Code Status Code Status - Ordered -- 04/16/24 1:27:00 EDT, Full Code, Constant Order Digitally Signed by MARIA ELENA CARMEN on 04/16/2024 02:27 AM Digitally Signed by MARIA ELENA CARMEN on 04/16/2024 02:[address] [facility] [id number] Nephrology Consult note Date of Service 04/16/2024 Reason for Consultation Renal failure Referring Physician Hospitalist History of Present Illness 48-year-old male present for Claire's gangrene with metabolic acidosis acute respiratory failure acute on chronic renal failure. The patient did require debridement for Claire's gangrene on April 16, 2024 been asked see for renal failure his pH this morning was 7.28 with pCO2 of 33 PaO2 137 calculated bicarb 15.3 glucose 421 sodium 134 potassium 6.3107 chloride bicarb 19 BUN 79 creatinine of 3.82 creatinine on admission was 5.01 Tessman at that time was 8.0 baseline creatinine appears to be approximately 2.8 this was back in June 2023 had been as low 2.67 in February patient is on pressors in the form of Levophed patient on mechanical ventilator. Nursing reports patient is nonambulatory Review of Systems Review of systems is negative 10 other than what noted in HPI. Physical Exam Vitals and Measurements T: 36.5 C (Oral) TMIN: 35.2 C (Rectal) TMAX: 36.5 C (Oral) HR: 98 (Monitored) RR: 25 (Total) RR: -1(Spontaneous) BP: 101/62 BP: 143/67(Line) SpO2: 98% WT: 125 kg Weight Dosing Weight: 125 kg (04/16/24) General: on vent and sedated patient appears older than stated age Head: Normocephalic HEENT: Pupils equal reactive to light, extraocular muscles intact, membranes are moist, no icterus Neck: JVP CV: S1 S2 without murmur, no rub RESP: coarse anteriorly on ventilator ABDOMINAL: Bowels sounds present soft negative rebound rigidity guarding or tenderness EXT: No cyanosis clubbing +1 edema edema NEURO: Unable to fully assess Vascular: Pulses +2 out of 4 and equal Skin:[warm and dry : Hernandez clear and yellow scrotal area is packed with serosanguineous fluid noted Rectal:Deferred Breast:Deferred Lab Results 04/16 06:44 Potassium Level: 5.8 H 04/16 05:05 Protime: 15.8 H PT International Ratio: 1.4 Glucose Level: 421 C Sodium Level: 134 L Potassium Level: 6.3 C BUN: 79.0 H Creatinine Lvl (s): 3.82 H 04/16 04:14 Glucose Level: 354 H Sodium Level: 133 L Potassium Level: 6.8 C BUN: 79.0 H Creatinine Lvl (s): 3.79 H 04/16 01:52 WBC: 44.8 H Hgb: 7.5 L Hct: 24.4 L Platelet: 485 H Potassium Level: 7.1 C Assessment/Plan 1. Acute on chronic renal failure stage IIIb baseline creatinine 2.6 2. Hyperkalemia secondary to acidosis as well as hyperglycemia and acute renal failure 3. Metabolic acidosis 4. Acute hypoxemic respiratory failure 5. Shock No acute need presently for dialysis continue with supportive care including pressors as well as bicarb drip control blood sugars Would suggest repeat labs this afternoon as well Discussed with nursing Labs in a.m. medical management of potassium presently Patient is critically ill with multisystem organ failure We should avoid nephrotoxins including NSAIDs, RAAS agents, aminoglycosides, and contrast unless emergently needed. We should keep MAP greater than 65 and avoid hemodynamic changes if possible. This document was transcribed via voice recognition software and may contain typographical errors. Thank you for allowing me to participate in the care of this patient 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 Medications Inpatient atropine 0.4 mg/mL injectable solution ( PACU ), 0.4 mg= 1 mL, IV Push, AsDirected, PRN clindamycin, 600 mg= 50 mL, IV Piggyback, q6h Dextrose, 25 gram(s)= 50 mL, IV Push, AsDirected, PRN Dextrose 5% Premix Diluent 1,000 mL + sodium bicarbonate for IV 150 mEq Dextrose 50% IV Push, 12.5 gram(s)= 25 mL, IV Push, AsDirected, PRN Dilaudid ( PACU ), 0.2 mg= 0.2 mL, IV Push, q5min, PRN Dilaudid ( PACU ), 0.5 mg= 0.5 mL, IV Push, q5min, PRN DuoNeb, 3 mL, Inhalation, q2hRT, PRN HumaLOG 100 units/mL subcutaneous solution, Give 0-4 units/dose, Subcutaneous, q2h HumuLIN R, sliding scale insulin, Subcutaneous, q4h, PRN Insulin Regular for IV 100 unit(s) + NS Premix Diluent 100 mL Lokelma, 10 gram(s)= 1 packet(s), Oral, q8hr, PRN LR 1,000 mL, 1000 mL, Intravenous Norepinephrine for IV 8 mg [5 mcg/min] + NS PMX titrate 250 mL Peridex 0.12% oral rinse liquid, 15 mL, Swish & Spit, QID Pharmacy See ORDER COMMENTS, 1 EA, Miscellaneous, Daily Pharmacy See ORDER COMMENTS, 1 EA, Miscellaneous, Daily Propofol for IV 1,000 mg [10 mcg/kg/min] + IV Premix Diluent titrate 100 mL Protonix, 40 mg, IV Push, qDayAC Puralube ophth solution, 1 drop(s), Eyes, both, q8hr Puralube ophth solution, 1 drop(s), Eyes, both, AsDirected, PRN Puralube ophthalmic ointment, 1 artemio, Eyes, both, q8hr Puralube ophthalmic ointment, 1 artemio, Eyes, both, AsDirected, PRN Sublimaze, 25 mcg= 0.5 mL, IV Push, q15min, PRN Vancomycin - RANDOM level reminder, 1 EA, Miscellaneous, q12hr VANCOMYCIN -- pharmacy re-dosing by random level, 1 EA, Miscellaneous, Daily Zofran ( PACU ), 4 mg= 2 mL, IV Push, AsDirected, PRN Zosyn, 3.375 gram(s)= 50 mL, IV Piggyback, q8h Home amLODIPine 10 mg oral tablet, 10 mg= 1 tab(s), Oral, qDay clotrimazole 1% topical cream, 1 artemio, Topical, BID gabapentin 100 mg oral capsule, 300 mg= 3 cap(s), Oral, qDay glimepiride 4 mg oral tablet, 8 mg= 2 tab(s), Oral, qDay Lantus 100 units/mL10 ml vial solution, 30 unit(s), Subcutaneous, qHS Lantus Solostar Pen 100 units/mL 3 mL Pen, 30 unit(s), Subcutaneous, qHS lisinopril 20 mg oral tablet, 20 mg= 1 tab(s), Oral, qDay omeprazole 40 mg oral delayed release capsule, 40 mg= 1 cap(s), Oral, BID rosuvastatin 10 mg oral tablet, 10 mg= 1 tab(s), qDay TRUE METRIX LINDA GLUCOSE TRUE METRIX GLUCOSE TEST STRIP TRUEPLUS 33G LANCETS TRUPLUS LANC MIS 33G Allergies ampicillin penicillin Social History Smoking Status - 08/17/2018 Current every day smoker Alcohol - No Risk, 09/19/2020 Use: Current. Frequency: 1-2 times per year., 07/07/2023 Home/Environment Living situation: Home/Independent. Safe place to go: Yes. Financial concerns: No. Domestic Concerns: None., 03/08/2024 Nutrition/Health Type of diet: Regular. Appetite Good. Eating Difficulties None., 03/08/2024 Substance Abuse - Denies Substance Abuse, 08/17/2018 Use: Never., 04/30/2019 Tobacco - No Risk, 09/19/2020 Tobacco Use: 10 or more cigarettes (1/2 pack or more)/day in last 30 days. Type: Cigarettes., 04/30/2019 Family History Patient was adopted Alcohol abuse: Father. Diabetes: Father. Health Status Family Member(s) Immunizations tetanus/diphth/pertuss (Tdap) adult/adol: 0.5 mL (08/17/18) Digitally Signed by CHELA CHAPARRO DO on 04/16/2024 08:59 AM [facility] [facility] [id number] Procedure note Date of Service 04/16/2024 Procedure Name Central venous catheter insertion Consent Emergent Indication Septic shock, dynamic instability and hemodynamic monitoring Technique Patient's next of kin is unable been reached. Procedure performed under emergent consent. Timeout was performed to confirm correct patient, site and procedure. The right internal jugular site was then prepped and draped in sterile fashion using maximum barrier technique, the internal jugular vein was identified with the ultrasound. Approximately 2 mL 1% lidocaine was administered subcutaneously. Under direct ultrasound guidance, the needle was inserted directly into the vein with excellent nonpulsatile blood return. Syringe was removed and using Seldinger technique, the guidewire was threadedwith ease through the needle. The needle was then removed and small incision made at the puncture site of the skin. Dilator was then placed over the wire and the tract was dilated with ease. The dilator was then removed and triple-lumen catheter was inserted over the wire using Seldinger technique.There was excellent dark nonpulsatile blood return noted through all 3 ports. The ports were easilyflushed with sterile saline. Line was sutured into place and antimicrobial patch was placed around t he insertion site and sterile dressing applied. A postprocedural chest x-ray was ordered and pending at time of dictation. Complications None Estimated Blood Loss 3 mL Assessment/Plan Orders: Central Venous Catheter Bundle Kit ([id number]) ([id number])(CVC Bundle Kit ([id number]) ([id number])), 04/16/24 5:03:00 EDT, Stat, Quantity 1, Weight: 125, 04/16/24 5:03:00 EDT XR Chest 1 View (Portable)(Chest XR 1 View (Portable)), 04/16/24 4:52:00 EDT, 04/16/24 4:52:00 EDT,Stat, central line placed, Full code, Portable: Yes, Wheelchair Staff Member, Isolation: None, IV: Yes, Oxygen: No, Diabetes: Yes, : N/A, Wt k, [facility], SICU Digitally Signed by ELENA GONZALEZ on 04/16/2024 05:[address] [facility] [id number] Note ORIGINAL EXAMINATION: ONE XRAY VIEW OF THE CHEST04/16/2024 5:23 am COMPARISON: Chest x-ray 04/16/2024 at 2 a.m. HISTORY: ORDERING SYSTEM PROVIDED HISTORY: Reason for Exam: central line placed FINDINGS: The patient is rotated. Endotracheal tube tip projects 4.0 cm above the elena. An enteric tube is seen crossing the diaphragm near midline with the tip not included in the field of view. In the interim a right-sided central venous catheter is been placed with the tip projecting over the mid to lower SVC. The lungs are hypoventilated without significant interval change in the left basilar atelectasis. The left lower thorax is not included within the field of view. No large left pleural effusion. No right pleural effusion. No visible pneumothorax. IMPRESSION: Interval placement of a right-sided central venous catheter with tip projecting over the mid to lower SVC. Other support devices as above. Otherwise no significant interval change. Preliminary Report was Dictated by a Resident Interpreted by: Antonio Lindsey MD Preliminary Report By: Jr Castañeda Electronically signed By Antonio Lindsey MD Dictated Date: 04/16/2024 5:27:49 AM Prelim Date: 04/16/2024 5:33:09 AM Sign Date: 04/16/2024 5:34:43 AM Ordering Provider: [facility]05-29-2024 NoteSinus rhythm RIGHT BUNDLE BRANCH BLOCK INFERIOR MYOCARDIAL INFARCTION, POSSIBLY ACUTE WARNING: DATA QUALITY MAY AFFECT INTERPRETATION Electronic Signature: NGOC MIN MD 04/16/2024 09:51:56[facility] 05-29-2024 Urology Consult note Date of Service 04/16/2024 Reason for Consultation Claire's gangrene Referring Physician Maria Elena Carmen [facility] [facility] History of Present Illness This is a 48y/o M w/ HTN, HL, DM2 w/ neuropathy, and tobacco use who presented to [place] ER overnight w/ a swollen, black scrotum, N/V, and report of elevated blood sugars > 400. He had a prior ER visit 10 days ago with penile pain and discharge as well as buttock pain after a fall. He was dx'd w/ balanitis and discharged with clotrimazole. Evaluation on arrival last night notable for WBC 46K, H/H 9.2/28.5, plt 550, INR 1.3, Cr 5 (baseline ~2.7-3), K+ 8, Na 126, CO2 14, lactate 1.2, CT A/P w/o contrast showing soft tissue swelling of the scrotum, perineum (albeit incompletely imaged), and R buttock). He has been hypothermic, tachycardic, and hypotensive. He was intubated prior to transfer here and is now on pressors and bicarb gtt. He is receiving vanco, zosyn, and clinda. Of note, he was admitted at [place] from 03/08-03/11 with weakness and falls. A1c at that time was >15.5%. Review of Systems Unable to obtain (intubated) Physical Exam Vitals and Measurements HR: 99 (Monitored) RR: 29 (Total) RR: 7 (Spontaneous) BP: 91/60 SpO2: 97% No qualifying data available. intubated scrotum w/ marked necrotic-appearing skin changes L > R-- black, fluctuant perineum w/ crepitus Lab Results No 36 Hour Lab Data Imaging Results and Diagnostics XR Enteric Tube Placement Result Date: April 16, 2024 Verified By: ANTONIO LINDSEY MD CLINICAL STATEMENT: IMPRESSION: 1. Endotracheal tube and enteric tube are in satisfactory position.2. Increasing left basilar atelectasis. XR Chest 1 View Result Date: April 16, 2024 Verified By: ANTONIO LINDSEY MD CLINICAL STATEMENT: IMPRESSION: 1. Endotracheal tube and enteric tube are in satisfactory position.2. Increasing left basilar atelectasis. I personally reviewed the labs and imaging from [place] as per HPI. Assessment/Plan Claire's Gangrene: -- Appears quite necrotic on exam -- Recommend emergent debridement -- With marked metabolic disturbances and likely advanced necrotizing infection, high risk of mortality -- We are trying to track down next of kin to discuss 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 Medications Inpatient clindamycin, 600 mg, IV Piggyback, q6h Dextrose, 25 gram(s)= 50 mL, IV Push, AsDirected, PRN Dextrose 5% in Water intravenous soln 1,000 mL + sodium bicarbonate 150 mEq Dextrose 50% IV Push, 12.5 gram(s)= 25 mL, IV Push, AsDirected, PRN DuoNeb, 3 mL, Inhalation, q2hRT, PRN HumuLIN R, sliding scale insulin, Subcutaneous, q4h, PRN Insulin Regular for IV 100 unit(s) + NS Premix Diluent 100 mL Peridex 0.12% oral rinse liquid, 15 mL, Swish & Spit, QID Pharmacy See ORDER COMMENTS, 1 EA, Miscellaneous, Daily Pharmacy See ORDER COMMENTS, 1 EA, Miscellaneous, Daily Propofol for IV 1,000 mg [10 mcg/kg/min] + IV Premix Diluent titrate 100 mL Propofol for IV 1,000 mg [20 mcg/kg/min] + IV Premix Diluent titrate 100 mL Protonix, 40 mg, IV Push, qDayAC Protonix IV Push, 40 mg, IV Push, qDayAC Puralube ophth solution, 1 drop(s), Eyes, both, q8h Puralube ophth solution, 1 drop(s), Eyes, both, AsDirected, PRN Puralube ophthalmic ointment, 1 artemio, Eyes, both, q8h Puralube ophthalmic ointment, 1 artemio, Eyes, both, AsDirected, PRN Sodium Chloride 0.9% 1000 mL 1,000 mL, 1000 mL, Intravenous Sublimaze, 25 mcg= 0.5 mL, IV Push, q15min, PRN vancomycin IVPB, 2000 mg= 500 mL, 15 mg/kg, IV Piggyback, Vanc Policy Zosyn, 3.375 gram(s)= 50 mL, IV Piggyback, q8h Home amLODIPine 10 mg oral tablet, 10 mg= 1 tab(s), Oral, qDay clotrimazole 1% topical cream, 1 artemio, Topical, BID gabapentin 100 mg oral capsule, 300 mg= 3 cap(s), Oral, qDay glimepiride 4 mg oral tablet, 8 mg= 2 tab(s), Oral, qDay Lantus 100 units/mL10 ml vial solution, 30 unit(s), Subcutaneous, qHS Lantus Solostar Pen 100 units/mL 3 mL Pen, 30 unit(s), Subcutaneous, qHS lisinopril 20 mg oral tablet, 20 mg= 1 tab(s), Oral, qDay omeprazole 40 mg oral delayed release capsule, 40 mg= 1 cap(s), Oral, BID rosuvastatin 10 mg oral tablet, 10 mg= 1 tab(s), qDay TRUE METRIX LINDA GLUCOSE TRUE METRIX GLUCOSE TEST STRIP TRUEPLUS 33G LANCETS TRUPLUS LANC MIS 33G Allergies ampicillin penicillin Social History Smoking Status - 08/17/2018 Current every day smoker Alcohol - No Risk, 09/19/2020 Use: Current. Frequency: 1-2 times per year., 07/07/2023 Home/Environment Living situation: Home/Independent. Safe place to go: Yes. Financial concerns: No. Domestic Concerns: None., 03/08/2024 Nutrition/Health Type of diet: Regular. Appetite Good. Eating Difficulties None., 03/08/2024 Substance Abuse - Denies Substance Abuse, 08/17/2018 Use: Never., 04/30/2019 Tobacco - No Risk, 09/19/2020 Tobacco Use: 10 or more cigarettes (1/2 pack or more)/day in last 30 days. Type: Cigarettes., 04/30/2019 Family History Patient was adopted Alcohol abuse: Father. Diabetes: Father. Health Status Family Member(s) Immunizations tetanus/diphth/pertuss (Tdap) adult/adol: 0.5 mL (08/17/18) Digitally Signed by KAYLEEN BERNAL MD on 04/16/2024 02:[address] [facility] [id number] Note ORIGINAL EXAMINATION: ONE XRAY VIEW OF THE CHEST; ONE SUPINE XRAY VIEW(S) OF THE ABDOMEN 04/16/2024 2:09 am COMPARISON: Chest x-ray on 04/16/2024 HISTORY: ORDERING SYSTEM PROVIDED HISTORY: Reason for Exam: Endotracheal tube placement Enteric tube placement FINDINGS: The endotracheal tube tip is 5 cm above the elena. The enteric tube tip and side port are in the body of the stomach in satisfactory position. Left basilar atelectasis has increased since chest x-ray 2 hours earlier. There is no significant pleural fluid. No pneumothorax is present. There is no evidence of pulmonary edema. No acute findings are seen in the upper abdomen. IMPRESSION: 1. Endotracheal tube and enteric tube are in satisfactory position. 2. Increasing left basilar atelectasis. Interpreted by: Antonio Lindsey MD Preliminary Report By: Antonio Lindsey MD Electronically signed By Antonio Lindsey MD Dictated Date: 04/16/2024 2:12:26 AM Prelim Date: 04/16/2024 2:14:27 AM Sign Date: 04/16/2024 2:14:27 AM Ordering Provider: MARIA ELENA CARMEN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 During that admission the patient's hemoglobin A1c was found to be greater than 15.5 and after evaluation physical therapy was recommended to be discharged to [facility] facility for rehabilitation and strengthening which he declined and was discharged AMA. He was also evaluated at [facility] emergency department on 04/06/2024 with penile pain and swelling. He was diagnosed with balanitis and discharged with topical clotrimazole cream. Patient Marley presented to [facility] ER 04/15/2024 with complaints of increased penile pain, new testicular pain, perineal pain, and nausea vomiting. Physical examination emergency department revealed his scrotum with erythema, areas of necrosis, and firmness tracking down his perineurium into the right gluteal area. Laboratory investigations revealed pH of 7.2, WBC 46, hemoglobin 9.2, hematocrit 28.5, platelet count 550, 10% bands, positive UA,glucose level 371, sodium level 126, potassium level 8.0, bicarb 14, BUN 85, creatinine 5.01 and lactic acid 1.2. The patient received hyperkalemia cocktail and sepsis protocol fluid bolus. He was also administered IV vancomycin, IV Zosyn, and IV clindamycin. He also received 2 A of sodium bicarb and initiated on a sodium bicarbonate drip. CT scan of the abdomen and pelvis was ordered without contrast given his significant GENE which demonstrated moderate soft tissue swelling and skin thickeningmost pronounced the right gluteal region with extension along the perineum to the scrotum. ABG obtained showed pH of 7.19, pCO2 of 27, pO2 82 and O2 sat of 96%. The patient was reportedly having increased work of breathing and clinically looking worse and was electively intubated in the emergency de partment with consent given by the patient to the ED physician. After discussion with on-call urologist Dr. Bernal and on-call surgeon Dr. 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 Upon arrival to the surgical ICU the patient is intubated, sedate and hypotensive with systolic blood pressure 86 mmHg and MAP 55 mmHg and subsequently Levophed was initiated. Unable to locate any family member. Phone numbers for emergency contact listed on previous admissions are not working. Review of Systems Unable to complete given patient's current clinical condition Physical Exam Vitals and Measurements T: 35.2 C (Rectal) HR: 99 (Monitored) RR: 29 (Total) RR: 7 (Spontaneous) BP: 91/60 SpO2: 97% No qualifying data available. General: Intubated, sedate Head: Normocephalic, atraumatic. ENT: PERRLA, eyes: Sclera nonicteric, oral: Mucous membranes dry. Endotracheal tube and orogastric tube present. Neck: Supple, no JVD. Cardiac: Regular rate and rhythm, normal S1-S2, no murmur, rubs, or gallops Respiratory: Lungs clear, diminished. Resps easy, nonlabored Abdomen: Obese, soft, nontender, hypoactive bowel sounds. Urogenital: Significant penile and scrotal edema. Scrotum has significant firmness which tracks into the perineal and right gluteal area. Erythema present along with black necrotic tissue present on the scrotum. Musculoskeletal: No joint deformities, no muscle tenderness Extremities: 1+ pulses, minimal pedal edema Neurological: Sedate Skin: Warm & dry, skin intact Lab Results ABG 04/15/2024 22:40 pH 7.199 pCO2 27.8 pO2 82.4 O2 sat 96% WBC 46.0 Hemoglobin 9.2 Hematocrit 28.5 Platelet 550 Bands 10% INR 1.3 UA grossly positive Glucose 371 Sodium 126 Potassium 8.0 Chloride 97 Bicarb 14 BUN 85 Creatinine 5.01 Calcium 8.4 Albumin level 1.7 Total bilirubin 2.0 Alk phos 231 AST 11 ALT 13 GFR 13 Lactic acid 1.2 Imaging Results and Diagnostics CT abdomen pelvis no contrast 04/15/2024 21:33 IMPRESSION: Moderate soft tissue swelling and skin thickening most pronounced in the right gluteal region with extension along the perineum to the scrotum compatible with cellulitis in the correct clinical setting. No localized fluid collection/abscess identified. No subcutaneous air to suggest Claire gangrene, although the entirety of the scrotum is not included on this study. Trace left pleural effusion with adjacent atelectasis. Mild interlobular septal thickening possibly representing volume overload. 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 Uncompensated metabolic acidosis received 2 A IV push sodium bicarbonate and initiated on sodiumbicarbonate drip 3. Respiratory failure requiring mechanical ventilation 4. Acute kidney injury on chronic kidney disease baseline creatinine 2.6 currently 5.0 5. Hyperkalemia with potassium level of 8 secondary to above status post hyperkalemia cocktail and initiation of sodium bicarbonate drip. Repeat BMP pending 6. Septic shock status post 30mL/kg IV fluid resuscitation now necessitating initiation of pressorsfor hemodynamic instability. Blood cultures and urine culture pending. 7. Uncontrolled diabetes mellitus previous hemoglobin A1c (03/09/2024) greater than 15.5 glucose level on presentation 371. Prescribed Home regimen includes Lantus, glimepiride and Jardiance 8. Medical nonadherence patient is reportedly nonadherent with diabetic regimen 9. Hyponatremia in the setting of hyperglycemia 10. History of tobaccoism obesity, hypertension, hyperlipidemia, neuropathy and Charcot foot Plan: 1. Observation and monitoring surgical ICU 2. Stat urology and general surgery consult plan for emergent surgical intervention 4. Continue vancomycin, Zosyn, and clindamycin 5. Continue with mechanical ventilation with propofol for sedation and intermittent fentanyl for pain control. RASS goal -1. However increased respiratory rate to 26 to assist with uncompensated metabolic acidosis 6. Obtain stat ABG, BMP, lactic acid and EKG 7. Continue D5W with 150 mEq sodium bicarbonate at 150 mL/hr. May require intermittent pushes of sodium bicarbonate. 8. Consult nephrology 9. Tight blood glucose control with critical care glycemic protocol 10. SCDs for DVT prophylaxis Protonix for GI prophylaxis Case discussed with on-call welder fitter arc Dr. Mckeon 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 Medications Home Medications (13) Active amLODIPine 10 mg oral tablet 10 mg = 1 tab(s), Oral, qDay clotrimazole 1% topical cream 1 artemio, Topical, BID gabapentin 100 mg oral capsule 300 mg = 3 cap(s), Oral, qDay glimepiride 4 mg oral tablet 8 mg = 2 tab(s), Oral, qDay Lantus 100 units/mL10 ml vial solution 30 unit(s), Subcutaneous, qHS Lantus Solostar Pen 100 units/mL 3 mL Pen 30 unit(s), Subcutaneous, qHS lisinopril 20 mg oral tablet 20 mg = 1 tab(s), Oral, qDay omeprazole 40 mg oral delayed release capsule 40 mg = 1 cap(s), Oral, BID rosuvastatin 10 mg oral tablet 10 mg = 1 tab(s), qDay TRUE METRIX LINDA GLUCOSE TRUE METRIX GLUCOSE TEST STRIP TRUEPLUS 33G LANCETS TRUPLUS LANC MIS 33G Allergies ampicillin penicillin Social History Smoking Status - 08/17/2018 Current every day smoker Alcohol - No Risk, 09/19/2020 Use: Current. Frequency: 1-2 times per year., 07/07/2023 Home/Environment Living situation: Home/Independent. Safe place to go: Yes. Financial concerns: No. Domestic Concerns: None., 03/08/2024 Nutrition/Health Type of diet: Regular. Appetite Good. Eating Difficulties None., 03/08/2024 Substance Abuse - Denies Substance Abuse, 08/17/2018 Use: Never., 04/30/2019 Tobacco - No Risk, 09/19/2020 Tobacco Use: 10 or more cigarettes (1/2 pack or more)/day in last 30 days. Type: Cigarettes., 04/30/2019 Family History Patient was adopted Alcohol abuse: Father. Diabetes: Father. Health Status Family Member(s) Immunizations tetanus/diphth/pertuss (Tdap) adult/adol: 0.5 mL (08/17/18) Code Status Code Status - Ordered -- 04/16/24 1:27:00 EDT, Full Code, Constant Order Digitally Signed by MARIA ELENA CARMEN on 04/16/2024 02:27 AM Digitally Signed by MARIA ELENA CARMEN on 04/16/2024 02:[address] [facility] [id number] Note ORIGINAL EXAMINATION: ONE XRAY VIEW OF THE CHEST04/15/2024 11:59 pm COMPARISON: Chest x-ray 03/08/2024, CT abdomen and pelvis 04/15/2024 HISTORY: ORDERING SYSTEM PROVIDED HISTORY: Reason for Exam: Evaluate tube placement s/p endotracheal intubation FINDINGS: Suboptimal exam secondary to patient positioning. An endotracheal tube tip projects 5.2 cm above the elena. No focal consolidation or pulmonary edema. No large pleural effusion or visible pneumothorax. Cardiomediastinal silhouette is within normal limits. No acute osseous abnormality. IMPRESSION: Appropriately positioned endotracheal tube. Suboptimal exam without definite acute cardiopulmonary process. I have personally reviewed the images of this examination, and agree with the resident's findings and interpretation. Interpreted by: Antonio Lindsey MD Preliminary Report By: Jr Castañeda Electronically signed By Antonio Lindsey MD Dictated Date: 04/16/2024 12:06:17 AM Prelim Date: 04/16/2024 12:09:30 AM Sign Date: 04/16/2024 12:21:49 AM [facility]ing [facility] Note Sinus tachycardia Right bundle branch block Electronic Signature: MARTÍNEZ ACUNA MD 04/15/2024 22:35:[address] [place] [address] 05-28-2024 Note ORIGINAL EXAMINATION: CT OF THE ABDOMEN AND PELVIS WITHOUT CONTRAST 04/15/2024 9:33 pm TECHNIQUE: CT of the abdomen and pelvis was performed without the administration of intravenous contrast. Multiplanar reformatted images are provided for review. Automated exposure control, iterative reconstruction, and/or weight based adjustment of the mA/kV was utilized to reduce the radiation dose to as low as reasonably achievable. COMPARISON: CT abdomen pelvis 07/07/2023 HISTORY: ORDERING SYSTEM PROVIDED HISTORY: Reason for Exam: Evaluate for possible Claire's gangrene FINDINGS: The heart is normal in size. No pericardial thickening or effusion. Trace left pleural effusion with adjacent atelectasis. There is mild interlobular septal thickening within the lower lobes possibly representing volume overload. The aorta is nonaneurysmal with minimal atherosclerosis. No adenopathy within the abdomen or pelvis. The liver, gallbladder, spleen, pancreas, and bilateral adrenal glands are unremarkable. The kidneys are roughly symmetric in size. No hydronephrosis or renal calculi. The bladder is unremarkable. Prostate is normal in size. No pneumoperitoneum or free fluid. The large and small bowel are normal in caliber. The appendix is unremarkable. No inflammatory changes of the GI tract. No acute osseous abnormality. There is moderate soft tissue swelling and skin thickening most pronounced in the right gluteal region with extension to the scrotum. No localized fluid collection/abscess is identified. No subcutaneous free air to suggest Claire's gangrene. IMPRESSION: Moderate soft tissue swelling and skin thickening most pronounced in the right gluteal region with extension along the perineum to the scrotum compatible with cellulitis in the correct clinical setting. No localized fluid collection/abscess identified. No subcutaneous air to suggest Claire gangrene, although the entirety of the scrotum is not included on this study. Trace left pleural effusion with adjacent atelectasis. Mild interlobular septal thickening possibly representing volume overload. I have personally reviewed the images of this examination and agree with the resident's findings and interpretation. Interpreted by: Rik Mcnair Preliminary Report By: Harry Morgan Electronically signed By Rik Mcnair Dictated Date: 04/15/2024 9:34:51 PM Prelim Date: 04/15/2024 9:42:04 PM Sign Date: 04/15/2024 10:03:58 PM Ordering Provider: [facility]05-19-2024 Hospital Discharge instructions Patient Education 04/06/2024 15:04:37 Balanitis Balanitis Balanitis is an inflammation of the head of the penis. It can happen because of a buildup of germs (bacteria, viruses, or fungi) under the foreskin. It can also happen because of exposure to soaps and other chemicals. In adults, this is most often a complication of diabetes. It can also happen because of obesity or poor genital cleaning habits. If it is not treated right away, this can lead to a condition called phimosis. This means you cannot pull back the foreskin from the head of the penis. Symptoms of balanitis may include pain or tenderness of the penis, discharge, inability to retract the foreskin, difficulty urinating, and impotence. Home care The following guidelines will help you care for your condition at home: If you are able to retract your foreskin: oChildren. Retract the foreskin and clean with water. Apply antibiotic cream or ointment to the penis three times a day. oAdults. Retract the foreskin and clean with water. Apply clotrimazole cream to the penis 3 times aday unless another medicine was prescribed. Clotrimazole cream is available over the counter. Avoidsexual activity while being treated. oSitz baths. Soak the penis and foreskin in warm water while inflammation is present. If you have diabetes, talk with your doctor about keeping your diabetes in good control. If you are overweight, talk with your doctor about a weight loss plan. Follow-up care Follow up with your healthcare provider, or as advised. When to seek medical advice Call your healthcare provider right away if any of these occur: You can't retract the foreskin You can't return the retracted foreskin to the forward position. This requires immediate attention! Your symptoms get worse You have partial or complete blockage of the flow of urine [id number] [employer]. [address] [place] [address]. All rights reserved. This information is not intended as a substitute for professional medical care. Always follow yourhealthcare professional's instructions. Follow Up Care 04/06/2024 12:11:51 With:THO YIP MD, [facility] Address: [address] [place] [phone] When:3-7 days With:Go to emergency room if symptoms worsen Address:Unknown When:2-4 days With:PHOEBE ADAM APRN-PRODUCT ENGINEER Address: [address] [place] [phone] When:2-4 days [facility] 05-19-2024 Emergency department Discharge summary Discharge Instructions Thank you for allowing [facility] to assist you with your healthcare needs. The following is importantdischarge information regarding your hospital visit. Diagnosis from Today's Visit Balanitis What to Do Next Instructions from Your Care Team No qualifying data available. Post Acute Orders No qualifying data available. You Need to Schedule the Following Appointments Follow Up with THO YIP MD, [facility] When: When:Within 3-7 days Where:[address] [place] [address] [address] [place] [address] [phone] Follow Up with Go to emergency room if symptoms worsen When: When:Within 2-4 days Follow Up with PHOEBE ADAM APRN-PRODUCT ENGINEER When: When:Within 2-4 days [facility] [facility] [place] [address]- Allergies ampicillin penicillin Medications Please ask your primary doctor or pharmacist before taking any other medication not listed, including over the counter drugs, herbal medications, vitamins and or supplements as they may interact withyour home medications. What How Much When Instructions Last Dose New clotrimazole topical (clotrimazole 1% topical cream) 1 application Topical Two (2) times a day Printed Prescription Unchanged amLODIPine (amLODIPine 10 mg oral tablet) 1 tab(s) by mouth Once a day Unchanged gabapentin (gabapentin 100 mg oral capsule) 3 cap by mouth Once a day Unchanged glimepiride (glimepiride 4 mg oral tablet) 2 tab(s) by mouth Once a day Take with breakfast Unchanged insulin glargine (Lantus 100 units/ mL10 ml vial solution) 30 unit(s) Subcutaneous Daily at bedtime Unchanged insulin glargine (Lantus Solostar Pen 100 units/ mL 3 mL Pen) 30 unit(s) Subcutaneous Daily at bedtime Unchanged lisinopril (lisinopril 20 mg oral tablet) 1 tab(s) by mouth Once a day Unchanged Misc Medication (TRUE METRIX LINDA GLUCOSE) Unchanged Misc Medication (TRUE METRIX GLUCOSE TEST STRIP) Unchanged Misc Medication (TRUEPLUS 33G LANCETS) Unchanged Misc Medication (TRUPLUS LANC MIS 33G) Unchanged omeprazole (omeprazole 40 mg oral delayed release capsule) 1 cap by mouth Two (2) times a day Unchanged rosuvastatin (rosuvastatin 10 mg oral tablet) 1 tab(s) Once a day AM Please take this list to your next doctor s visit. Bring all medications you take, including over the counter medications, herbals and other supplements with you to your doctor s visit. Patients and families are reminded to discard old lists and to update any records with all medication providers or retail pharmacies. Education Materials Balanitis Balanitis is an inflammation of the head of the penis. It can happen because of a buildup of germs (bacteria, viruses, or fungi) under the foreskin. It can also happen because of exposure to soaps and other chemicals. In adults, this is most often a complication of diabetes. It can also happen because of obesity or poor genital cleaning habits. If it is not treated right away, this can lead to a condition called phimosis. This means you cannot pull back the foreskin from the head of the penis. Symptoms of balanitis may include pain or tenderness of the penis, discharge, inability to retract the foreskin, difficulty urinating, and impotence. Home care The following guidelines will help you care for your condition at home: If you are able to retract your foreskin: oChildren. Retract the foreskin and clean with water. Apply antibiotic cream or ointment to the penis three times a day. oAdults. Retract the foreskin and clean with water. Apply clotrimazole cream to the penis 3 times aday unless another medicine was prescribed. Clotrimazole cream is available over the counter. Avoidsexual activity while being treated. oSitz baths. Soak the penis and foreskin in warm water while inflammation is present. If you have diabetes, talk with your doctor about keeping your diabetes in good control. If you are overweight, talk with your doctor about a weight loss plan. Follow-up care Follow up with your healthcare provider, or as advised. When to seek medical advice Call your healthcare provider right away if any of these occur: You can't retract the foreskin You can't return the retracted foreskin to the forward position. This requires immediate attention! Your symptoms get worse You have partial or complete blockage of the flow of urine [id number] [employer]. [address] [place] [address], [place] [address]. All rights reserved. This information is not intended as a substitute for professional medical care. Always follow yourhealthcare professional's instructions. Additional Information VACCINATE! IT SAVES LIVES! Members of the community who have not yet received the COVID-19 vaccine and would like to receive it can visit one of [facility] vaccine clinics. There are many vaccine clinic locations within the [facility]. For locations and available times, please visit [email or web address] It is important to note that some COVID mobile vaccine clinics are held outdoors and may be canceled in rainy or stormy conditions. To learn more about pediatric vaccinations (ages 5-11), we invite you to visit the [facility] webpage. https://www.[facility].org/pages/2154-Lbxmt-Iveumfjouua-Yriefioiba-Pflpy-Med stions.htmlTo learn more about the COVID-19 vaccine, we invite you to visit the CDC website for a list of frequently asked questions. https://www.cdc.gov/coronavirus/2019-ncov/vaccines/faq.html [employer] Patient Portal Access Instructions: Stay connected with your healthcare team and access your personal medical information anytime with the [employer] Patient Portal. If you would like a full copy of your medical records please contact the [facility] Medical Records Department Sunday through Sunday between 8a.m. and 4:30p.m. Please follow the directions below to access the portal: 1.Access the email account you provided upon registration to the [facility].2.Look for an invitation email from [facility].3.Open the email and access the invitation link: Accept Invitation to [employer]4.Fill in the required nguyen to create your account. Sign into [email or web address] ([employer]) with your username and password that you created in the above steps to stay up to date. You can then view a summary of results, a summary of your visits, and the ability to download your summaries to your computer or send the information securely to a physician. Remember that your healthcare information is confidential, so carefully consider who you will allow to register on the [employer] Patient Portal for access to your information. You can also access the [employer] Patient Portal on the [employer] artemio. Simply click on Health Records under [employer] and then click on the [employer] logo. HOW TO SAFELY DISPOSE OF PRESCRIPTION MEDICATIONS Please use one of the following methods to safely dispose of your unused medications. 1.Use a drug disposal kit: the drug disposal pouch allows you to safely discard your old and unuseddrugs. Ask your nurse to give you one when you are discharged.2.Visit a local take-back location: Many local pharmacies and police departments have programs that collect old and unwanted prescriptiondrugs. Call your local pharmacy or go to http://[place] [employer]/7I2Xe4u to find one close to you.3.Make use of household items: Use cat litter or old coffee grounds to dispose medications if other options arenot available. Mix your drugs with these household products, seal them in an airtight container andthrow it into the garbage. Call [facility]: [phone] to be sure your drugs can be disposed of in this way. Some medicines may require a different approach.4.Never flush your medications down the toilet. IF YOU HAVE BEEN PRESCRIBED AN OPIOIDS FOR PAIN If you have been prescribed an opioid (such as hydrocodone, oxycodone or morphine), it is critical to understand the possible side effects and risks of opioid pain medications. Even when taken as directed, opioids can have several side effects including: Tolerance, meaning you might need to take more of a medication for the same pain relief. Nausea, vomiting and/or constipation. Sleepiness, dizziness, dry mouth, confusion, depression or itching. Physical dependence, meaning you have withdrawal symptoms when a medication is stopped ? this can develop within a few days. KNOW YOUR RESPONSIBILITIES It is important to know exactly how much and how often to take the opioid pain medications you are prescribed. Never take opioids in higher amounts or more often than prescribed. Do not combine opioids with alcohol or other drugs that cause drowsiness, such as benzodiazepines, also known as benzos,including diazepam and alprazolam, muscle relaxants or sleep aids. Never sell or share prescriptionopioids. This is illegal. Store opioids in a secure place and out of reach of others (including children, family, friends and visitors). The last page(s) of this document has been signed and retained as a CHART COPY Signatures Patient Education Materials Balanitis Medication Leaflets My discharge plan and instructions have been reviewed and explained to me and I,GURINDER HAHN understand my current condition and have read and understand these discharge instructions. I have received a written copy of the plan/instructions. If I have questions, I am aware that I should contact my doctor. Patient/Care Management Associate Signature: Date/Time: Relationship to Patient: Witness Name/Signature: Date/Time: [facility]05-19-2024 Note Discharge Instructions Thank you for allowing [facility] to assist you with your healthcare needs. The following is importantdischarge information regarding your hospital visit. Diagnosis from Today's Visit Balanitis What to Do Next Instructions from Your Care Team No qualifying data available. Post Acute Orders No qualifying data available. You Need to Schedule the Following Appointments Follow Up with THO YIP MD, [facility] When: When:Within 3-7 days Where:[address] [place] [phone] Follow Up with Go to emergency room if symptoms worsen When: When:Within 2-4 days Follow Up with PHOEBE ADAM APRN-PRODUCT ENGINEER When: When:Within 2-4 days Where:[address] [place] [address]- Allergies ampicillin penicillin Medications Please ask your primary doctor or pharmacist before taking any other medication not listed, including over the counter drugs, herbal medications, vitamins and or supplements as they may interact withyour home medications. What How Much When Instructions Last Dose New clotrimazole topical (clotrimazole 1% topical cream) 1 application Topical Two (2) times a day Printed Prescription Unchanged amLODIPine (amLODIPine 10 mg oral tablet) 1 tab(s) by mouth Once a day Unchanged gabapentin (gabapentin 100 mg oral capsule) 3 cap by mouth Once a day Unchanged glimepiride (glimepiride 4 mg oral tablet) 2 tab(s) by mouth Once a day Take with breakfast Unchanged insulin glargine (Lantus 100 units/ mL10 ml vial solution) 30 unit(s) Subcutaneous Daily at bedtime Unchanged insulin glargine (Lantus Solostar Pen 100 units/ mL 3 mL Pen) 30 unit(s) Subcutaneous Daily at bedtime Unchanged lisinopril (lisinopril 20 mg oral tablet) 1 tab(s) by mouth Once a day Unchanged Misc Medication (TRUE METRIX LINDA GLUCOSE) Unchanged Misc Medication (TRUE METRIX GLUCOSE TEST STRIP) Unchanged Misc Medication (TRUEPLUS 33G LANCETS) Unchanged Misc Medication (TRUPLUS LANC MIS 33G) Unchanged omeprazole (omeprazole 40 mg oral delayed release capsule) 1 cap by mouth Two (2) times a day Unchanged rosuvastatin (rosuvastatin 10 mg oral tablet) 1 tab(s) Once a day AM Please take this list to your next doctor s visit. Bring all medications you take, including over the counter medications, herbals and other supplements with you to your doctor s visit. Patients and families are reminded to discard old lists and to update any records with all medication providers or retail pharmacies. Education Materials Balanitis Balanitis is an inflammation of the head of the penis. It can happen because of a buildup of germs (bacteria, viruses, or fungi) under the foreskin. It can also happen because of exposure to soaps and other chemicals. In adults, this is most often a complication of diabetes. It can also happen because of obesity or poor genital cleaning habits. If it is not treated right away, this can lead to a condition called phimosis. This means you cannot pull back the foreskin from the head of the penis. Symptoms of balanitis may include pain or tenderness of the penis, discharge, inability to retract the foreskin, difficulty urinating, and impotence. Home care The following guidelines will help you care for your condition at home: If you are able to retract your foreskin: oChildren. Retract the foreskin and clean with water. Apply antibiotic cream or ointment to the penis three times a day. oAdults. Retract the foreskin and clean with water. Apply clotrimazole cream to the penis 3 times aday unless another medicine was prescribed. Clotrimazole cream is available over the counter. Avoidsexual activity while being treated. oSitz baths. Soak the penis and foreskin in warm water while inflammation is present. If you have diabetes, talk with your doctor about keeping your diabetes in good control. If you are overweight, talk with your doctor about a weight loss plan. Follow-up care Follow up with your healthcare provider, or as advised. When to seek medical advice Call your healthcare provider right away if any of these occur: You can't retract the foreskin You can't return the retracted foreskin to the forward position. This requires immediate attention! Your symptoms get worse You have partial or complete blockage of the flow of urine [id number] [employer]. [address] [place] [address]. All rights reserved. This information is not intended as a substitute for professional medical care. Always follow yourhealthcare professional's instructions. Additional Information VACCINATE! IT SAVES LIVES! Members of the community who have not yet received the COVID-19 vaccine and would like to receive it can visit one of [facility] vaccine clinics. There are many vaccine clinic locations within the [facility]. For locations and available times, please visit [email or web address]/. It is important to note that some COVID mobile vaccine clinics are held outdoors and may be canceled in rainy or stormy conditions. To learn more about pediatric vaccinations (ages 5-11), we invite you to visit the [facility] webpage. https://www.[facility].org/pages/9533-Nzkmn-Ppwengsishw-Cmxjaqrwue-Pyxio-Dbq stions.htmlTo learn more about the COVID-19 vaccine, we invite you to visit the CDC website for a list of frequently asked questions. https://www.cdc.gov/coronavirus/2019-ncov/vaccines/faq.html [employer] Patient Portal Access Instructions: Stay connected with your healthcare team and access your personal medical information anytime with the [employer] Patient Portal. If you would like a full copy of your medical records please contact the [facility] Medical Records Department Sunday through Sunday between 8a.m. and 4:30p.m. Please follow the directions below to access the portal: 1.Access the email account you provided upon registration to the hospital.2.Look for an invitation email from [facility].3.Open the email and access the invitation link: Accept Invitation to [employer]4.Fill in the required nguyen to create your account. Sign into [email or web address] ([employer]) with your username and password that you created in the above steps to stay up to date. You can then view a summary of results, a summary of your visits, and the ability to download your summaries to your computer or send the information securely to a physician. Remember that your healthcare information is confidential, so carefully consider who you will allow to register on the [employer] Patient Portal for access to your information. You can also access the [employer] Patient Portal on the [employer] artemio. Simply click on Health Records under [employer] and then click on the [employer] logo. HOW TO SAFELY DISPOSE OF PRESCRIPTION MEDICATIONS Please use one of the following methods to safely dispose of your unused medications. 1.Use a drug disposal kit: the drug disposal pouch allows you to safely discard your old and unuseddrugs. Ask your nurse to give you one when you are discharged.2.Visit a local take-back location: Many local pharmacies and police departments have programs that collect old and unwanted prescriptiondrugs. Call your local pharmacy or go to http://[place] [employer]/7U1Vp7r to find one close to you.3.Make use of household items: Use cat litter or old coffee grounds to dispose medications if other options arenot available. Mix your drugs with these household products, seal them in an airtight container andthrow it into the garbage. Call [facility]: [phone] to be sure your drugs can be disposed of in this way. Some medicines may require a different approach.4.Never flush your medications down the toilet. IF YOU HAVE BEEN PRESCRIBED AN OPIOIDS FOR PAIN If you have been prescribed an opioid (such as hydrocodone, oxycodone or morphine), it is critical to understand the possible side effects and risks of opioid pain medications. Even when taken as directed, opioids can have several side effects including: Tolerance, meaning you might need to take more of a medication for the same pain relief. Nausea, vomiting and/or constipation. Sleepiness, dizziness, dry mouth, confusion, depression or itching. Physical dependence, meaning you have withdrawal symptoms when a medication is stopped ? this can develop within a few days. KNOW YOUR RESPONSIBILITIES It is important to know exactly how much and how often to take the opioid pain medications you are prescribed. Never take opioids in higher amounts or more often than prescribed. Do not combine opioids with alcohol or other drugs that cause drowsiness, such as benzodiazepines, also known as benzos,including diazepam and alprazolam, muscle relaxants or sleep aids. Never sell or share prescriptionopioids. This is illegal. Store opioids in a secure place and out of reach of others (including children, family, friends and visitors). The last page(s) of this document has been signed and retained as a CHART COPY Signatures Patient Education Materials Balanitis Medication Leaflets My discharge plan and instructions have been reviewed and explained to me and I,GURINDER HAHN understand my current condition and have read and understand these discharge instructions. I have received a written copy of the plan/instructions. If I have questions, I am aware that I should contact my doctor. Patient/Care Management Associate Signature: Date/Time: Relationship to Patient: Witness Name/Signature: Date/Time: [facility]05-19-2024 Note ORIGINAL EXAMINATION: 2 x-ray views of the pelvis 04/06/2024 3:46 pm COMPARISON: None. HISTORY: ORDERING SYSTEM PROVIDED HISTORY: Reason for Exam: pt comes from home by EMS d/t penile swelling and pain, he also states he fell last week and has buttuck/tailebone pain. pain FINDINGS: The pelvis appears intact. Mild degenerative changes are present at the hips and at the lower lumbar spine. There is no fracture or dislocation identified. IMPRESSION: No acute finding. Interpreted by: Tuyet Maldonado MD Preliminary Report By: Tuyet Maldonado MD Electronically signed By Tuyet Maldonado MD Dictated Date: 04/06/2024 3:49:23 PM Prelim Date: 04/06/2024 3:50:03 PM Sign Date: 04/06/2024 3:50:03 PM [facility] Note* Telephone Encounter - Miguelina Ashford MA - 04/02/2024 2:39 PM EDT Prescription Request: Last medication check: 04/05/23 Last physical exam: 06/22/21 Next scheduled appointment: 04/09/24 Last date [facility] on this [id number]* Telephone Encounter - Miguelina Ashford MA - 04/02/2024 2:39 PM EDT Prescription Request: Last medication check: 04/05/23 Last physical exam: 06/22/21 Next scheduled appointment: 04/09/24 Last date of refill on this medication 01/01/24 documented in this [facility]04[facility]2024 Hospital Discharge instructions Patient Education 03/11/2024 14:14:51 Managing Your Hypertension Managing Your Hypertension Hypertension is commonly called high blood pressure. This is when the force of your blood pressing against the hickey of your arteries is too strong. Arteries are blood vessels that carry blood from your heart throughout your body. Hypertension forces the heart to work harder to pump blood, and may cause the arteries to become narrow or stiff. Having untreated or uncontrolled hypertension can cause heart attack, stroke, kidney disease, and other problems. What are blood pressure readings? A blood pressure reading consists of a higher number over a lower number. Ideally, your blood pressure should be below 120/80. The first (top) number is called the systolic pressure. It is a measure of the pressure in your arteries as your heart beats. The second (bottom) number is called the diastolic pressure. It is a measure of the pressure in your arteries as the heart relaxes. What does my blood pressure reading mean? Blood pressure is classified into four stages. Based on your blood pressure reading, your health care provider may use the following stages to determine what type of treatment you need, if any. Systolic pressure and diastolic pressure are measured in a unit called mm Hg. Normal Systolic pressure: below 120. Diastolic pressure: below 80. Elevated Systolic pressure: 120-129. Diastolic pressure: below 80. Hypertension stage 1 Systolic pressure: 130-139. Diastolic pressure: 80-89. Hypertension stage 2 Systolic pressure: 140 or above. Diastolic pressure: 90 or above. What health risks are associated with hypertension? Managing your hypertension is an important responsibility. Uncontrolled hypertension can lead to: A heart attack. A stroke. A weakened blood vessel (aneurysm). Heart failure. Kidney damage. Eye damage. Metabolic syndrome. Memory and concentration problems. What changes can I make to manage my hypertension? Hypertension can be managed by making lifestyle changes and possibly by taking medicines. Your health care provider will help you make a plan to bring your blood pressure within a normal range. Eating and drinking Eat a diet that is high in fiber and potassium, and low in salt (sodium), added sugar, and fat. An example eating plan is called the DASH (Dietary Approaches to Stop Hypertension) diet. To eat this way: ?Eat plenty of fresh fruits and vegetables. Try to fill half of your plate at each meal with fruitsand vegetables. ?Eat whole grains, such as whole wheat pasta, brown rice, or whole grain bread. Fill about one quarter of your plate with whole grains. ?Eat low-fat diary products. ?Avoid fatty cuts of meat, processed or cured meats, and poultry with skin. Fill about one quarter of your plate with lean proteins such as fish, chicken without skin, beans, eggs, and tofu. ?Avoid premade and processed foods. These tend to be higher in sodium, added sugar, and fat. Reduce your daily sodium intake. Most people with hypertension should eat less than 1,500 mg of sodium a day. Limit alcohol intake to no more than 1 drink a day for non women and 2 drinks a day for men. One drink equals 12 oz of beer, 5 oz of wine, or 1 oz of hard liquor. Lifestyle Work with your health care provider to maintain a healthy body weight, or to lose weight. Ask what an ideal weight is for you. Get at least 30 minutes of exercise that causes your heart to beat faster (aerobic exercise) most days of the week. Activities may include walking, swimming, or biking. Include exercise to strengthen your muscles (resistance exercise), such as weight lifting, as part of your weekly exercise routine. Try to do these types of exercises for 30 minutes at least 3 days aweek. Do not use any products that contain nicotine or tobacco, such as cigarettes and e-cigarettes. If you need help quitting, ask your health care provider. Control any long-term (chronic) conditions you have, such as high cholesterol or diabetes. Monitoring Monitor your blood pressure at home as told by your health care provider. Your personal target blood pressure may vary depending on your medical conditions, your age, and other factors. Have your blood pressure checked regularly, as often as told by your health care provider. Working with your health care provider Review all the medicines you take with your health care provider because there may be side effects or interactions. Talk with your health care provider about your diet, exercise habits, and other lifestyle factors that may be contributing to hypertension. Visit your health care provider regularly. Your health care provider can help you create and adjustyour plan for managing hypertension. Will I need medicine to control my blood pressure? Your health care provider may prescribe medicine if lifestyle changes are not enough to get your blood pressure under control, and if: Your systolic blood pressure is 130 or higher. Your diastolic blood pressure is 80 or higher. Take medicines only as told by your health care provider. Follow the directions carefully. Blood pressure medicines must be taken as prescribed. The medicine does not work as well when you skip doses. Skipping doses also puts you at risk for problems. Contact a health care provider if: You think you are having a reaction to medicines you have taken. You have repeated (recurrent) headaches. You feel dizzy. You have swelling in your ankles. You have trouble with your vision. Get help right away if: You develop a severe headache or confusion. You have unusual weakness or numbness, or you feel faint. You have severe pain in your chest or abdomen. You vomit repeatedly. You have trouble breathing. Summary Hypertension is when the force of blood pumping through your arteries is too strong. If this condition is not controlled, it may put you at risk for serious complications. Your personal target blood pressure may vary depending on your medical conditions, your age, and other factors. For most people, a normal blood pressure is less than 120/80. Hypertension is managed by lifestyle changes, medicines, or both. Lifestyle changes include weight loss, eating a healthy, low-sodium diet, exercising more, and limiting alcohol. This information is not intended to replace advice given to you by your health care provider. Make sure you discuss any questions you have with your health care provider. Document Released: 07/30/2013 Document Revised: 02/27/2020 Document Reviewed: 10/03/2017 [employer] Patient Education 2020 [employer]. 03/11/2024 14:14:46 Hyperglycemia Hyperglycemia Hyperglycemia occurs when the level of sugar (glucose) in the blood is too high. Glucose is a type of sugar that provides the body's main source of energy. Certain hormones (insulin and glucagon) control the level of glucose in the blood. Insulin lowers blood glucose, and glucagon increases blood glucose. Hyperglycemia can result from having too little insulin in the bloodstream, or from the bodynot responding normally to insulin. Hyperglycemia occurs most often in people who have diabetes (diabetes mellitus), but it can happen in people who do not have diabetes. It can develop quickly, and it can be life-threatening if it causes you to become severely dehydrated (diabetic ketoacidosis or hyperglycemic hyperosmolar state). Severe hyperglycemia is a medical emergency. What are the causes? If you have diabetes, hyperglycemia may be caused by: Diabetes medicine. Medicines that increase blood glucose or affect your diabetes control. Not eating enough, or not eating often enough. Changes in physical activity level. Being sick or having an infection. If you have prediabetes or undiagnosed diabetes: Hyperglycemia may be caused by those conditions. If you do not have diabetes, hyperglycemia may be caused by: Certain medicines, including steroid medicines, beta-blockers, epinephrine, and thiazide diuretics. Stress. Serious illness. Surgery. Diseases of the pancreas. Infection. What increases the risk? Hyperglycemia is more likely to develop in people who have risk factors for diabetes, such as: Having a family member with diabetes. Having a gene for type 1 diabetes that is passed from parent to child (inherited). Living in an area with cold weather conditions. Exposure to certain viruses. Certain conditions in which the body's disease-fighting (immune) system attacks itself (autoimmune disorders). Being overweight or obese. Having an inactive (sedentary) lifestyle. Having been diagnosed with insulin resistance. Having a history of prediabetes, gestational diabetes, or polycystic ovarian syndrome (PCOS). Being of [place], [place], /, or / descent. What are the signs or symptoms? Hyperglycemia may not cause any symptoms. If you do have symptoms, they may include early warning signs, such as: Increased thirst. Hunger. Feeling very tired. Needing to urinate more often than usual. Blurry vision. Other symptoms may develop if hyperglycemia gets worse, such as: Dry mouth. Loss of appetite. Fruity-smelling breath. Weakness. Unexpected or rapid weight gain or weight loss. Tingling or numbness in the hands or feet. Headache. Skin that does not quickly return to normal after being lightly pinched and released (poor skin turgor). Abdominal pain. Cuts or bruises that are slow to heal. How is this diagnosed? Hyperglycemia is diagnosed with a blood test to measure your blood glucose level. This blood test is usually done while you are having symptoms. Your health care provider may also do a physical exam and review your medical history. You may have more tests to determine the cause of your hyperglycemia, such as: A fasting blood glucose (FBG) test. You will not be allowed to eat (you will fast) for at least 8 hours before a blood sample is taken. An A1c (hemoglobin A1c) blood test. This provides information about blood glucose control over the previous 2 3 months. An oral glucose tolerance test (OGTT). This measures your blood glucose at two times: ?After fasting. This is your baseline blood glucose level. ?Two hours after drinking a beverage that contains glucose. How is this treated? Treatment depends on the cause of your hyperglycemia. Treatment may include: Taking medicine to regulate your blood glucose levels. If you take insulin or other diabetes medicines, your medicine or dosage may be adjusted. Lifestyle changes, such as exercising more, eating healthier foods, or losing weight. Treating an illness or infection, if this caused your hyperglycemia. Checking your blood glucose more often. Stopping or reducing steroid medicines, if these caused your hyperglycemia. If your hyperglycemia becomes severe and it results in hyperglycemic hyperosmolar state, you must be hospitalized and given IV fluids. Follow these instructions at home: General instructions Take [id number] and prescription medicines only as told by your health care provider. Do not use any products that contain nicotine or tobacco, such as cigarettes and e-cigarettes. If you need help quitting, ask your health care provider. Limit alcohol intake to no more than 1 drink per day for non women and 2 drinks per day formen. One drink equals 12 oz of beer, 5 oz of wine, or 1 oz of hard liquor. Learn to manage stress. If you need help with this, ask your health care provider. Keep all follow-up visits as told by your health care provider. This is important. Eating and drinking Maintain a healthy weight. Exercise regularly, as directed by your health care provider. Stay hydrated, especially when you exercise, get sick, or spend time in hot temperatures. Eat healthy foods, such as: ?Lean proteins. ?Complex carbohydrates. ?Fresh fruits and vegetables. ?Low-fat dairy products. ?Healthy fats. Drink enough fluid to keep your urine clear or pale yellow. If you have diabetes: Make sure you know the symptoms of hyperglycemia. Follow your diabetes management plan, as told by your health care provider. Make sure you: ?Take your insulin and medicines as directed. ?Follow your exercise plan. ?Follow your meal plan. Eat on time, and do not skip meals. ?Check your blood glucose as often as directed. Make sure to check your blood glucose before and after exercise. If you exercise longer or in a different way than usual, check your blood glucose moreoften. ?Follow your sick day plan whenever you cannot eat or drink normally. Make this plan in advance with your health care provider. Share your diabetes management plan with people in your workplace, school, and household. Check your urine for ketones when you are ill and as told by your health care provider. Carry a medical alert card or wear medical alert jewelry. Contact a health care provider if: Your blood glucose is at or above 240 mg/dL (13.3 mmol/L) for 2 days in a row. You have problems keeping your blood glucose in your target range. You have frequent episodes of hyperglycemia. Get help right away if: You have difficulty breathing. You have a change in how you think, feel, or act (mental status). You have nausea or vomiting that does not go away. These symptoms may represent a serious problem that is an emergency. Do not wait to see if the symptoms will go away. Get medical help right away. Call your local emergency services (911 in the [place] Do not drive yourself to the hospital. Summary Hyperglycemia occurs when the level of sugar (glucose) in the blood is too high. Hyperglycemia is diagnosed with a blood test to measure your blood glucose level. This blood test is usually done while you are having symptoms. Your health care provider may also do a physical exam and review your medical history. If you have diabetes, follow your diabetes management plan as told by your health care provider. Contact your health care provider if you have problems keeping your blood glucose in your target range. This information is not intended to replace advice given to you by your health care provider. Make sure you discuss any questions you have with your health care provider. Document Released: 05/01/2002 Document Revised: 07/23/2017 Document Reviewed: 07/23/2017 [employer] Patient Education 2020 [employer]. 03/11/2024 14:14:30 Diabetes Mellitus and Standards of Medical Care Diabetes Mellitus and Standards of Medical Care Managing diabetes (diabetes mellitus) can be complicated. Your diabetes treatment may be managed bya team of health care providers, including: A physician who specializes in diabetes (statistical programmer analyst). A nurse practitioner or physician after school program assistant. Nurses. A diet and demo specialist (registered dietitian). A certified green building engineer (CDE). An advanced clinical specialist. A pharmacist. An eye doctor. A early intervention specialist (field marketing manager). A dentist. A primary care provider. A mental health provider. Your health care providers follow guidelines to help you get the best quality of care. The following schedule is a general guideline for your diabetes management plan. Your health care providers may give you more specific instructions. Physical exams Upon being diagnosed with diabetes mellitus, and each year after that, your health care provider will ask about your medical and family history. He or she will also do a physical exam. Your exam may include: Measuring your height, weight, and body mass index (BMI). Checking your blood pressure. This will be done at every routine medical visit. Your target blood pressure may vary depending on your medical conditions, your age, and other factors. Thyroid gland exam. Skin exam. Screening for damage to your nerves (peripheral neuropathy). This may include checking the pulse inyour legs and feet and checking the level of sensation in your hands and feet. A complete foot exam to inspect the structure and skin of your feet, including checking for cuts, bruises, redness, blisters, sores, or other problems. Screening for blood vessel (vascular) problems, which may include checking the pulse in your legs and feet and checking your temperature. Blood tests Depending on your treatment plan and your personal needs, you may have the following tests done: HbA1c (hemoglobin A1c). This test provides information about blood sugar (glucose) control over theprevious 2 3 months. It is used to adjust your treatment plan, if needed. This test will be done: ?At least 2 times a year, if you are meeting your treatment goals. ?4 times a year, if you are not meeting your treatment goals or if treatment goals have changed. Lipid testing, including total, LDL, and HDL cholesterol and triglyceride levels. ?The goal for LDL is less than 100 mg/dL (5.5 mmol/L). If you are at high risk for complications, the goal is less than 70 mg/dL (3.9 mmol/L). ?The goal for HDL is 40 mg/dL (2.2 mmol/L) or higher for men and 50 mg/dL (2.8 mmol/L) or higher for women. An HDL cholesterol of 60 mg/dL (3.3 mmol/L) or higher gives some protection against heart disease. ?The goal for triglycerides is less than 150 mg/dL (8.3 mmol/L). Liver function tests. Kidney function tests. Thyroid function tests. Dental and eye exams Visit your dentist two times a year. If you have type 1 diabetes, your health care provider may recommend an eye exam 3 5 years after you are diagnosed, and then once a year after your first exam. ?For children with type 1 diabetes, a health care provider may recommend an eye exam when your child is age 10 or older and has had diabetes for 3 5 years. After the first exam, your child should getan eye exam once a year. If you have type 2 diabetes, your health care provider may recommend an eye exam as soon as you arediagnosed, and then once a year after your first exam. Immunizations The yearly flu (influenza) vaccine is recommended for everyone 6 months or older who has diabetes. The pneumonia (pneumococcal) vaccine is recommended for everyone 2 years or older who has diabetes.If you are 65 or older, you may get the pneumonia vaccine as a series of two separate shots. The hepatitis B vaccine is recommended for adults shortly after being diagnosed with diabetes. Adults and children with diabetes should receive all other vaccines according to age-specific recommendations from the Centers for Disease Control and Prevention (CDC). Mental and emotional health Screening for symptoms of eating disorders, anxiety, and depression is recommended at the time of diagnosis and afterward as needed. If your screening shows that you have symptoms (positive screeningresult), you may need more evaluation and you may work with a mental health care provider. Treatment plan Your treatment plan will be reviewed at every medical visit. You and your health care provider willdiscuss: How you are taking your medicines, including insulin. Any side effects you are experiencing. Your blood glucose target goals. The frequency of your blood glucose monitoring. Lifestyle habits, such as activity level as well as tobacco, alcohol, and substance use. Diabetes self-management education Your health care provider will assess how well you are monitoring your blood glucose levels and whether you are taking your insulin correctly. He or she may refer you to: A certified green building engineer to manage your diabetes throughout your life, starting at diagnosis. A registered dietitian who can create or review your personal nutrition plan. An advanced clinical specialist who can discuss your activity level and exercise plan. Summary Managing diabetes (diabetes mellitus) can be complicated. Your diabetes treatment may be managed bya team of health care providers. Your health care providers follow guidelines in order to help you get the best quality of care. Standards of care including having regular physical exams, blood tests, blood pressure monitoring, immunizations, screening tests, and education about how to manage your diabetes. Your health care providers may also give you more specific instructions based on your individual health. This information is not intended to replace advice given to you by your health care provider. Make sure you discuss any questions you have with your health care provider. Document Released: 09/02/2010 Document Revised: 07/25/2019 Document Reviewed: 08/03/2017 [employer] Patient Education 2020 [employer]. Follow Up Care 03/08/2024 12:43:44 With:PHOEBE ADAM APRN-PRODUCT ENGINEER Address: [address] [place] [phone] When:5 to 7 days Comments:post-hospitalization follow-up [facility] 04-23-2024 Note Discharge Instructions Thank you for allowing [facility] to assist you with your healthcare needs. The following is importantdischarge information regarding your hospital visit. Your Care Team Bravo Peoples APRN Your Diagnosis Acute kidney injury Diabetes Hyperglycemia Hypertension Leukocytosis Tobacco use Weakness What to do next Instructions From Your Doctor You were admitted primarily due to weakness and falls at home. We have physical and occupational therapy see you while you were here and they recommended a skilled stay for strengthening. You have elected to ignore this recommendation and sign out against medical advice today. If you change your mind once you get home, follow-up with your PCP and see if she will arrange home health PT/OT or outpatient PT/OT for you. You would benefit from strengthening for your own safety. On arrival, you also had a blood sugar of 492. I am sure you are aware that this is too high. Thesehigh blood sugars affect every system in your body and you are causing irreparable damage to all ofyour major organs. While finding the right combination of medications to control your blood sugars is part of the equation, you also must do your part by making better diet choices. Please try to eatfoods in a more natural state such as more vegetables, fruits, meat and steer away from carbohydrates and sugars. We checked a HgbA1c here and it is greater than 15.5%. That is the highest A1c I havepersonally seen in my line of work. For your own, sake please work on getting this number down lower. Your blood pressures were also very high on arrival. We added amlodipine 10 mg oral daily and a prescription will be sent in for this medication. Please check your blood pressures at home and discusswhether you need additional medications to control your blood pressures at your next visit. Please stop smoking! Follow Up Appointments Follow Up with PHOEBE ADAM APRN-PRODUCT ENGINEER When Within 5 to 7 days Why: post-hospitalization follow-up Where: [address] [place] [address]- The Following Activity and Diet Have Been Ordered for You Discharge Activity - Ordered -- Resume your pre-hospitalization activity, 03/11/24 14:28:00 EDT Discharge Diet - Ordered -- No changes were made to your diet during your hospital stay. Please resume your pre hospitalization diet on discharge., 03/11/24 14:28:00 EDT The Following Treatments Have Been Ordered for You Discharge Labs No qualifying data available. Discharge Radiology No qualifying data available. Other Therapies No qualifying data available. Post Acute Orders No qualifying data available. Allergies ampicillin penicillin Medications Please ask your primary doctor or pharmacist before taking any other medication not listed, including over the counter drugs, herbal medications, vitamins and or supplements as they may interact withyour home medications. What How Much When Instructions Last Dose New amLODIPine (amLODIPine 10 mg oral tablet) 1 tab(s) by mouth Once a day Pickup at [facility] 03/11/24 at 0830am Changed insulin glargine (Lantus 100 units/ mL10 ml vial solution) 30 unit(s) Subcutaneous Daily at bedtime Pickup at [facility] none today Unchanged gabapentin (gabapentin 100 mg oral capsule) 3 cap by mouth Once a day none today Unchanged glimepiride (glimepiride 4 mg oral tablet) 2 tab(s) by mouth Once a day Take with breakfast 03/11/24 at 0830am Unchanged lisinopril (lisinopril 20 mg oral tablet) 1 tab(s) by mouth Once a day 03/11/24 at 0830am Unchanged Misc Medication (TRUE METRIX LINDA GLUCOSE) Unchanged Misc Medication (TRUE METRIX GLUCOSE TEST STRIP) Unchanged Misc Medication (TRUEPLUS 33G LANCETS) Unchanged Misc Medication (TRUPLUS LANC MIS 33G) Unchanged omeprazole (omeprazole 40 mg oral delayed release capsule) 1 cap by mouth Two (2) times a day 03/11/24 at 0536am Unchanged rosuvastatin (rosuvastatin 10 mg oral tablet) 1 tab(s) Once a day none today Pharmacy Information [facility]: [address] [place] [address] [phone] Please take this list to your next doctor s visit. Bring all medications you take, including over the counter medications, herbals and other supplements with you to your doctor s visit. Patients and families are reminded to discard old lists and to update any records with all medication providers or retail pharmacies. Education Materials Managing Your Hypertension Hypertension is commonly called high blood pressure. This is when the force of your blood pressing against the hickey of your arteries is too strong. Arteries are blood vessels that carry blood from your heart throughout your body. Hypertension forces the heart to work harder to pump blood, and may cause the arteries to become narrow or stiff. Having untreated or uncontrolled hypertension can cause heart attack, stroke, kidney disease, and other problems. What are blood pressure readings? A blood pressure reading consists of a higher number over a lower number. Ideally, your blood pressure should be below 120/80. The first (top) number is called the systolic pressure. It is a measure of the pressure in your arteries as your heart beats. The second (bottom) number is called the diastolic pressure. It is a measure of the pressure in your arteries as the heart relaxes. What does my blood pressure reading mean? Blood pressure is classified into four stages. Based on your blood pressure reading, your health care provider may use the following stages to determine what type of treatment you need, if any. Systolic pressure and diastolic pressure are measured in a unit called mm Hg. Normal Systolic pressure: below 120. Diastolic pressure: below 80. Elevated Systolic pressure: 120-129. Diastolic pressure: below 80. Hypertension stage 1 Systolic pressure: 130-139. Diastolic pressure: 80-89. Hypertension stage 2 Systolic pressure: 140 or above. Diastolic pressure: 90 or above. What health risks are associated with hypertension? Managing your hypertension is an important responsibility. Uncontrolled hypertension can lead to: A heart attack. A stroke. A weakened blood vessel (aneurysm). Heart failure. Kidney damage. Eye damage. Metabolic syndrome. Memory and concentration problems. What changes can I make to manage my hypertension? Hypertension can be managed by making lifestyle changes and possibly by taking medicines. Your health care provider will help you make a plan to bring your blood pressure within a normal range. Eating and drinking Eat a diet that is high in fiber and potassium, and low in salt (sodium), added sugar, and fat. An example eating plan is called the DASH (Dietary Approaches to Stop Hypertension) diet. To eat this way: ? Eat plenty of fresh fruits and vegetables. Try to fill half of your plate at each meal with fruits and vegetables. ? Eat whole grains, such as whole wheat pasta, brown rice, or whole grain bread. Fill about one quarter of your plate with whole grains. ? Eat low-fat diary products. ? Avoid fatty cuts of meat, processed or cured meats, and poultry with skin. Fill about one quarter of your plate with lean proteins such as fish, chicken without skin, beans, eggs, and tofu. ? Avoid premade and processed foods. These tend to be higher in sodium, added sugar, and fat. Reduce your daily sodium intake. Most people with hypertension should eat less than 1,500 mg of sodium a day. Limit alcohol intake to no more than 1 drink a day for non women and 2 drinks a day for men. One drink equals 12 oz of beer, 5 oz of wine, or 1 oz of hard liquor. Lifestyle Work with your health care provider to maintain a healthy body weight, or to lose weight. Ask what an ideal weight is for you. Get at least 30 minutes of exercise that causes your heart to beat faster (aerobic exercise) most days of the week. Activities may include walking, swimming, or biking. Include exercise to strengthen your muscles (resistance exercise), such as weight lifting, as part of your weekly exercise routine. Try to do these types of exercises for 30 minutes at least 3 days aweek. Do not use any products that contain nicotine or tobacco, such as cigarettes and e-cigarettes. If you need help quitting, ask your health care provider. Control any long-term (chronic) conditions you have, such as high cholesterol or diabetes. Monitoring Monitor your blood pressure at home as told by your health care provider. Your personal target blood pressure may vary depending on your medical conditions, your age, and other factors. Have your blood pressure checked regularly, as often as told by your health care provider. Working with your health care provider Review all the medicines you take with your health care provider because there may be side effects or interactions. Talk with your health care provider about your diet, exercise habits, and other lifestyle factors that may be contributing to hypertension. Visit your health care provider regularly. Your health care provider can help you create and adjustyour plan for managing hypertension. Will I need medicine to control my blood pressure? Your health care provider may prescribe medicine if lifestyle changes are not enough to get your blood pressure under control, and if: Your systolic blood pressure is 130 or higher. Your diastolic blood pressure is 80 or higher. Take medicines only as told by your health care provider. Follow the directions carefully. Blood pressure medicines must be taken as prescribed. The medicine does not work as well when you skip doses. Skipping doses also puts you at risk for problems. Contact a health care provider if: You think you are having a reaction to medicines you have taken. You have repeated (recurrent) headaches. You feel dizzy. You have swelling in your ankles. You have trouble with your vision. Get help right away if: You develop a severe headache or confusion. You have unusual weakness or numbness, or you feel faint. You have severe pain in your chest or abdomen. You vomit repeatedly. You have trouble breathing. Summary Hypertension is when the force of blood pumping through your arteries is too strong. If this condition is not controlled, it may put you at risk for serious complications. Your personal target blood pressure may vary depending on your medical conditions, your age, and other factors. For most people, a normal blood pressure is less than 120/80. Hypertension is managed by lifestyle changes, medicines, or both. Lifestyle changes include weight loss, eating a healthy, low-sodium diet, exercising more, and limiting alcohol. This information is not intended to replace advice given to you by your health care provider. Make sure you discuss any questions you have with your health care provider. Document Released: 07/30/2013 Document Revised: 02/27/2020 Document Reviewed: 10/03/2017 [employer] Patient Education 2020 [employer]. Hyperglycemia Hyperglycemia occurs when the level of sugar (glucose) in the blood is too high. Glucose is a type of sugar that provides the body's main source of energy. Certain hormones (insulin and glucagon) control the level of glucose in the blood. Insulin lowers blood glucose, and glucagon increases blood glucose. Hyperglycemia can result from having too little insulin in the bloodstream, or from the bodynot responding normally to insulin. Hyperglycemia occurs most often in people who have diabetes (diabetes mellitus), but it can happen in people who do not have diabetes. It can develop quickly, and it can be life-threatening if it causes you to become severely dehydrated (diabetic ketoacidosis or hyperglycemic hyperosmolar state). Severe hyperglycemia is a medical emergency. What are the causes? If you have diabetes, hyperglycemia may be caused by: Diabetes medicine. Medicines that increase blood glucose or affect your diabetes control. Not eating enough, or not eating often enough. Changes in physical activity level. Being sick or having an infection. If you have prediabetes or undiagnosed diabetes: Hyperglycemia may be caused by those conditions. If you do not have diabetes, hyperglycemia may be caused by: Certain medicines, including steroid medicines, beta-blockers, epinephrine, and thiazide diuretics. Stress. Serious illness. Surgery. Diseases of the pancreas. Infection. What increases the risk? Hyperglycemia is more likely to develop in people who have risk factors for diabetes, such as: Having a family member with diabetes. Having a gene for type 1 diabetes that is passed from parent to child (inherited). Living in an area with cold weather conditions. Exposure to certain viruses. Certain conditions in which the body's disease-fighting (immune) system attacks itself (autoimmune disorders). Being overweight or obese. Having an inactive (sedentary) lifestyle. Having been diagnosed with insulin resistance. Having a history of prediabetes, gestational diabetes, or polycystic ovarian syndrome (PCOS). Being of [place], [place], /, or / descent. What are the signs or symptoms? Hyperglycemia may not cause any symptoms. If you do have symptoms, they may include early warning signs, such as: Increased thirst. Hunger. Feeling very tired. Needing to urinate more often than usual. Blurry vision. Other symptoms may develop if hyperglycemia gets worse, such as: Dry mouth. Loss of appetite. Fruity-smelling breath. Weakness. Unexpected or rapid weight gain or weight loss. Tingling or numbness in the hands or feet. Headache. Skin that does not quickly return to normal after being lightly pinched and released (poor skin turgor). Abdominal pain. Cuts or bruises that are slow to heal. How is this diagnosed? Hyperglycemia is diagnosed with a blood test to measure your blood glucose level. This blood test is usually done while you are having symptoms. Your health care provider may also do a physical exam and review your medical history. You may have more tests to determine the cause of your hyperglycemia, such as: A fasting blood glucose (FBG) test. You will not be allowed to eat (you will fast) for at least 8 hours before a blood sample is taken. An A1c (hemoglobin A1c) blood test. This provides information about blood glucose control over the previous 2 3 months. An oral glucose tolerance test (OGTT). This measures your blood glucose at two times: ? After fasting. This is your baseline blood glucose level. ? Two hours after drinking a beverage that contains glucose. How is this treated? Treatment depends on the cause of your hyperglycemia. Treatment may include: Taking medicine to regulate your blood glucose levels. If you take insulin or other diabetes medicines, your medicine or dosage may be adjusted. Lifestyle changes, such as exercising more, eating healthier foods, or losing weight. Treating an illness or infection, if this caused your hyperglycemia. Checking your blood glucose more often. Stopping or reducing steroid medicines, if these caused your hyperglycemia. If your hyperglycemia becomes severe and it results in hyperglycemic hyperosmolar state, you must be hospitalized and given IV fluids. Follow these instructions at home: General instructions Take jbcp-uao-[id number] and prescription medicines only as told by your health care provider. Do not use any products that contain nicotine or tobacco, such as cigarettes and e-cigarettes. If you need help quitting, ask your health care provider. Limit alcohol intake to no more than 1 drink per day for non women and 2 drinks per day formen. One drink equals 12 oz of beer, 5 oz of wine, or 1 oz of hard liquor. Learn to manage stress. If you need help with this, ask your health care provider. Keep all follow-up visits as told by your health care provider. This is important. Eating and drinking Maintain a healthy weight. Exercise regularly, as directed by your health care provider. Stay hydrated, especially when you exercise, get sick, or spend time in hot temperatures. Eat healthy foods, such as: ? Lean proteins. ? Complex carbohydrates. ? Fresh fruits and vegetables. ? Low-fat dairy products. ? Healthy fats. Drink enough fluid to keep your urine clear or pale yellow. If you have diabetes: Make sure you know the symptoms of hyperglycemia. Follow your diabetes management plan, as told by your health care provider. Make sure you: ? Take your insulin and medicines as directed. ? Follow your exercise plan. ? Follow your meal plan. Eat on time, and do not skip meals. ? Check your blood glucose as often as directed. Make sure to check your blood glucose before and after exercise. If you exercise longer or in a different way than usual, check your blood glucose more often. ? Follow your sick day plan whenever you cannot eat or drink normally. Make this plan in advance withyour health care provider. Share your diabetes management plan with people in your workplace, school, and household. Check your urine for ketones when you are ill and as told by your health care provider. Carry a medical alert card or wear medical alert jewelry. Contact a health care provider if: Your blood glucose is at or above 240 mg/dL (13.3 mmol/L) for 2 days in a row. You have problems keeping your blood glucose in your target range. You have frequent episodes of hyperglycemia. Get help right away if: You have difficulty breathing. You have a change in how you think, feel, or act (mental status). You have nausea or vomiting that does not go away. These symptoms may represent a serious problem that is an emergency. Do not wait to see if the symptoms will go away. Get medical help right away. Call your local emergency services (911 in the [place] Do not drive yourself to the hospital. Summary Hyperglycemia occurs when the level of sugar (glucose) in the blood is too high. Hyperglycemia is diagnosed with a blood test to measure your blood glucose level. This blood test is usually done while you are having symptoms. Your health care provider may also do a physical exam and review your medical history. If you have diabetes, follow your diabetes management plan as told by your health care provider. Contact your health care provider if you have problems keeping your blood glucose in your target range. This information is not intended to replace advice given to you by your health care provider. Make sure you discuss any questions you have with your health care provider. Document Released: 05/01/2002 Document Revised: 07/23/2017 Document Reviewed: 07/23/2017 [employer] Patient Education 2020 [employer]. Diabetes Mellitus and Standards of Medical Care Managing diabetes (diabetes mellitus) can be complicated. Your diabetes treatment may be managed bya team of health care providers, including: A physician who specializes in diabetes (statistical programmer analyst). A nurse practitioner or physician after school program assistant. Nurses. A diet and demo specialist (registered dietitian). A certified green building engineer (CDE). An advanced clinical specialist. A pharmacist. An eye doctor. A early intervention specialist (field marketing manager). A dentist. A primary care provider. A mental health provider. Your health care providers follow guidelines to help you get the best quality of care. The following schedule is a general guideline for your diabetes management plan. Your health care providers may give you more specific instructions. Physical exams Upon being diagnosed with diabetes mellitus, and each year after that, your health care provider will ask about your medical and family history. He or she will also do a physical exam. Your exam may include: Measuring your height, weight, and body mass index (BMI). Checking your blood pressure. This will be done at every routine medical visit. Your target blood pressure may vary depending on your medical conditions, your age, and other factors. Thyroid gland exam. Skin exam. Screening for damage to your nerves (peripheral neuropathy). This may include checking the pulse inyour legs and feet and checking the level of sensation in your hands and feet. A complete foot exam to inspect the structure and skin of your feet, including checking for cuts, bruises, redness, blisters, sores, or other problems. Screening for blood vessel (vascular) problems, which may include checking the pulse in your legs and feet and checking your temperature. Blood tests Depending on your treatment plan and your personal needs, you may have the following tests done: HbA1c (hemoglobin A1c). This test provides information about blood sugar (glucose) control over theprevious 2 3 months. It is used to adjust your treatment plan, if needed. This test will be done: ? At least 2 times a year, if you are meeting your treatment goals. ? 4 times a year, if you are not meeting your treatment goals or if treatment goals have changed. Lipid testing, including total, LDL, and HDL cholesterol and triglyceride levels. ? The goal for LDL is less than 100 mg/dL (5.5 mmol/L). If you are at high risk for complications, the goal is less than 70 mg/dL (3.9 mmol/L). ? The goal for HDL is 40 mg/dL (2.2 mmol/L) or higher for men and 50 mg/dL (2.8 mmol/L) or higher forwomen. An HDL cholesterol of 60 mg/dL (3.3 mmol/L) or higher gives some protection against heart disease. ? The goal for triglycerides is less than 150 mg/dL (8.3 mmol/L). Liver function tests. Kidney function tests. Thyroid function tests. Dental and eye exams Visit your dentist two times a year. If you have type 1 diabetes, your health care provider may recommend an eye exam 3 5 years after you are diagnosed, and then once a year after your first exam. ? For children with type 1 diabetes, a health care provider may recommend an eye exam when your childis age 10 or older and has had diabetes for 3 5 years. After the first exam, your child should get an eye exam once a year. If you have type 2 diabetes, your health care provider may recommend an eye exam as soon as you arediagnosed, and then once a year after your first exam. Immunizations The yearly flu (influenza) vaccine is recommended for everyone 6 months or older who has diabetes. The pneumonia (pneumococcal) vaccine is recommended for everyone 2 years or older who has diabetes.If you are 65 or older, you may get the pneumonia vaccine as a series of two separate shots. The hepatitis B vaccine is recommended for adults shortly after being diagnosed with diabetes. Adults and children with diabetes should receive all other vaccines according to age-specific recommendations from the Centers for Disease Control and Prevention (CDC). Mental and emotional health Screening for symptoms of eating disorders, anxiety, and depression is recommended at the time of diagnosis and afterward as needed. If your screening shows that you have symptoms (positive screeningresult), you may need more evaluation and you may work with a mental health care provider. Treatment plan Your treatment plan will be reviewed at every medical visit. You and your health care provider willdiscuss: How you are taking your medicines, including insulin. Any side effects you are experiencing. Your blood glucose target goals. The frequency of your blood glucose monitoring. Lifestyle habits, such as activity level as well as tobacco, alcohol, and substance use. Diabetes self-management education Your health care provider will assess how well you are monitoring your blood glucose levels and whether you are taking your insulin correctly. He or she may refer you to: A certified green building engineer to manage your diabetes throughout your life, starting at diagnosis. A registered dietitian who can create or review your personal nutrition plan. An advanced clinical specialist who can discuss your activity level and exercise plan. Summary Managing diabetes (diabetes mellitus) can be complicated. Your diabetes treatment may be managed bya team of health care providers. Your health care providers follow guidelines in order to help you get the best quality of care. Standards of care including having regular physical exams, blood tests, blood pressure monitoring, immunizations, screening tests, and education about how to manage your diabetes. Your health care providers may also give you more specific instructions based on your individual health. This information is not intended to replace advice given to you by your health care provider. Make sure you discuss any questions you have with your health care provider. Document Released: 09/02/2010 Document Revised: 07/25/2019 Document Reviewed: 08/03/2017 [employer] Patient Education 2020 [employer]. Additional Information VACCINATE! IT SAVES LIVES! Members of the community who have not yet received the COVID-19 vaccine and would like to receive it can visit one of [facility] vaccine clinics. There are many vaccine clinic locations within the [facility]. For locations and available times, please visit [email or web address].[email or web address]/. It is important to note that some COVID mobile vaccine clinics are held outdoors and may be canceled in rainy or stormy conditions. To learn more about pediatric vaccinations (ages 5-11), we invite you to visit the [facility] webpage. [email or web address]/[email or web address] learn more about the COVID-19 vaccine, we invite you to visit the CDC website for a list of frequently asked questions.https://www.cdc.gov/coronavirus/2019-ncov/vaccines/faq.html [employer] Patient Portal Access Instructions: Stay connected with your healthcare team and access your personal medical information anytime with the [employer] Patient Portal. Please follow the directions below to create your [employer] account: 1.Access the email account you provided upon registration to the hospital/physician office.2.Look for an invitation email from [facility].3.Open the email and access the invitation link: AcceptInvitation to [employer].4.Fill in the required nguyen to create your account. To access your account, visit [employer] ([employer]. Click the blue button labeled Access Patient Portal and then log in with the username and password that you created in the steps above. You will be able to view your test results, lab results, a summary of your visits, upcoming appointments and more. There is also a convenient messaging option where you can send secure messages to your p rovider. In addition, you will have the ability to download any documents or summaries to your computer and/or send the information securely to a physician. Remember that your healthcare information is confidential, so carefully consider who you will allowto register on the [employer] Patient Portal for access to your information. You can also access the [employer] Patient Portal on the [employer] artemio. Simply click on Patient Portal and then log into your account. If you would like to receive a full copy of your medical records, please contact the [facility] Medical Records Department by calling [phone], Sunday through Sunday between 8 a.m. and 4:30 p.m. HOW TO SAFELY DISPOSE OF PRESCRIPTION MEDICATIONS Please use one of the following methods to safely dispose of your unused medications. 1.Use a drug disposal kit: the drug disposal pouch allows you to safely discard your old and unuseddrugs. Ask your nurse to give you one when you are discharged.2.Visit a local take-back location: Many local pharmacies and police departments have programs that collect old and unwanted prescriptiondrugs. Call your local pharmacy or go to http://[place] [employer]/2Y7Hv4g to find one close to you.3.Make use of household items: Use cat litter or old coffee grounds to dispose medications if other options arenot available. Mix your drugs with these household products, seal them in an airtight container andthrow it into the garbage. Call [facility]: [phone] to be sure your drugs can be disposed of in this way. Some medicines may require a different approach.4.Never flush your medications down the toilet. IF YOU HAVE BEEN PRESCRIBED AN OPIOID FOR PAIN If you have been prescribed an opioid (such as hydrocodone, oxycodone or morphine), it is critical to understand the possible side effects and risks of opioid pain medications. Even when taken as directed, opioids can have several side effects including: Tolerance, meaning you might need to take more of a medication for the same pain relief. Nausea, vomiting and/or constipation. Sleepiness, dizziness, dry mouth, confusion, depression or itching. Physical dependence, meaning you have withdrawal symptoms when a medication is stopped, can develop within a few days. KNOW YOUR RESPONSIBILITIES It is important to know exactly how much and how often to take the opioid pain medications you are prescribed. Never take opioids in higher amounts or more often than prescribed. Do not combine opioids with alcohol or other drugs that cause drowsiness, such as benzodiazepines, also known as benzos, including diazepam and alprazolam, muscle relaxants or sleep aids. Never sell or share prescription opioids. This is illegal. Store opioids in a secure place and out of reach of others (including children, family, friends and visitors). The last page of this document has been signed and retained as a CHART COPY. Signatures Patient Education Materials Managing Your Hypertension Hyperglycemia Diabetes Mellitus and Standards of Medical Care Medication Leaflets My discharge plan and instructions have been reviewed and explained to me and I,GURINDER HAHN understand my current condition and have read and understand these discharge instructions. I have received a written copy of the plan/instructions. If I have questions, I am aware that I should contact my doctor. Patient/Care Management Associate Signature: Date/Time: Relationship to Patient: Witness Name/Signature: Date/Time: [facility] [id number] Note Date of Service 03/10/2024 Chief Complaint weakness Subjective Patient seen and evaluated this morning while resting in chair. Patient was seen again by PT and OTwho felt that patient would benefit from a rehab stay in a SNF. For now, patient is agreeable with this and would like to go to [facility] in [place]. The social media developer sent a referral already but has not heard anything back yet. Patient denies any physical complaints this morning other than some kn ee pain from his fall. He is requesting a knee brace or florinda wrap to the left knee. We can do an acewrap to that knee. Patient's sugars are more elevated today, into the 400's. His S.O. brought in snacks for patient to encourage him to stay another night. Will add 5 units of novolog sc TIDAC in addition to sliding scale. Patient denies any fever, chills, cough, shortness of breath, chest pain, abdominal pain, nausea or dysuria. All questions answered. Objective Vitals and Measurements T: 36.9 C (Oral) TMIN: 36.6 C (Oral) TMAX: 36.9 C (Oral) HR: 112(Monitored) RR: 18 BP: 156/99 SpO2:98% WT: 129.1 kg Intake and Output 7AM Yesterday to 7AM Today Intake and Output (Last 24 hours) Intake Oral Intake 980.00 Output Urine Voided 1550.00 Total Summary Total Intake 980.00 Total Output 1550.00 Fluid Balance -570.00 Physical Exam General: No acute distress. Patient is alert, chronically ill-appearing. Skin: No rash. Skin is warm, dry and intact. HEENT: Head is normocephalic, atraumatic. Pupils are equal, round and reactive. Neck: Supple. No lymphadenopathy, thyromegaly. Lungs: Bilaterally clear but diminished without crepitation or wheeze. Unlabored. Heart: Heart is regular rhythm, S1, S2. No murmurs, gallops or rubs. Abdomen: Abdomen is soft, nontender, obese. Bowels sounds present in all quadrants. Extremities: No clubbing, cyanosis; generalized lower extremity edema bilaterally. Peripheral pulses palpable. No calf tenderness. Multiple wounds noted to bilateral lower extremities. Neurological: Patient is awake and alert to person, place and time. Following simple commands, moving all extremities. Weight Current Weight Dosing Weight: 128.4 kg (03/08/24) Current Weight: 129.1 kg (03/10/24) Current Weight: 128.6 kg (03/09/24) Medications Medications (20) Active Scheduled: (10) amLODIPine 5 mg tablet 10 mg 2 tab(s), Oral, qDay atorvastatin 10 mg tablet 20 mg 2 tab(s), Oral, qHS gabapentin 300 mg Capsule 300 mg 1 cap(s), Oral, qHS glimepiride 2 mg Tablet 8 mg 4 tab(s), Oral, qDay insulin glargine 100 units/ml solution 30 unit(s) 0.3 mL, Subcutaneous, qHS insulin lispro 100 units/mL Soln (3 mL) Give 0-10 units/dose, Subcutaneous, achs insulin lispro 100 units/mL Soln (3 mL) 5 unit(s) 0.05 mL, Subcutaneous, TIDAC lisinopril 20 mg tablet 20 mg 1 tab(s), Oral, qDay Nicoderm patch REMOVAL 1 EA, Miscellaneous, q24h pantoprazole 20 mg EC tablet 40 mg 2 tab(s), Oral, qDayAC Continuous: (0) PRN: (10) acetaminophen 325 mg Tablet 650 mg 2 tab(s), Oral, q4h acetaminophen 325 mg Tablet 650 mg 2 tab(s), Oral, q4h albuterol - ipratropium 2.5 mg-0.5 mg/3 mL Inhal Elena UD 3 mL, Inhalation, q4hRT benzonatate 100 mg Capsule 100 mg 1 cap(s), Oral, TID calcium carbonate 500 mg Chewable 500 mg 1 tab(s), Chewed, TID guaifenesin 100 mg/5 mL Liquid SUGAR-FREE 120 mL 200 mg 10 mL, Oral, q4h hydralazine 20 mg/mL (1mL) vial 10 mg 0.5 mL, IV Push, q4h melatonin 3 mg tablet 6 mg 2 tab(s), Oral, qHS nicotine 21 mg/24 hr ER patch 21 mg 1 patch(es), Transdermal, q24h ondansetron 2 mg/ 1 mL 2 mL INJ 4 mg 2 mL, IV Push, q4h Lab Results 03/10 05:22 Glucose Level: 339 H Sodium Level: 138 Potassium Level: 4.6 BUN: 43 H Creatinine Lvl (s): 2.67 H 03/09 05:19 WBC: 14.1 H Hgb: 9.8 L Hct: 29.8 L Platelet: 300 Neutrophil %: 74.5 Glucose Level: 267 H Sodium Level: 135 L Potassium Level: 4.5 BUN: 47 H Creatinine Lvl (s): 2.73 H Imaging Results and Diagnostics XR Knee 3 Views Left Result Date: March 08, 2024 Verified By: KELVIN DOLL DO CLINICAL STATEMENT: IMPRESSION: No definite acute fracture or dislocation is identified. Small suprapatellar joint effusion. I have personally reviewed the images of this examination and agree with the resident's findings and interpretation. XR Chest 1 View Result Date: March 08, 2024 Verified By: KELVIN DOLL DO CLINICAL STATEMENT: IMPRESSION: No acute process. EKG No qualifying data available. Assessment/Plan 1. Acute kidney injury Acute, on chronic, resolved. Previous GFR in the system was 26 - back to baseline today. Repeat BMP in the am. 2. Hyperglycemia Acute, new onset, likely from noncompliance. Blood sugar checks before meals and at bedtime. Cover with medium-dose corrective sliding scale insulin. Added 5 units Novolog TIDAC. ADA diet. Continue Lantus to 30 units sc qhs. Blood sugar goal of 180 or less and avoid hypoglycemia. Girlfriend broughtcandy in for patient yesterday to placate patient having to stay in hospital another night. 3. Hypertension Chronic, uncontrolled. Continue Lisinopril 20 mg PO daily. Continue Amlodipine 10 mg PO daily. Continue hydralazine 10 mg IV q4 hours PRN for SBP > 160 mmHg. SBP goal of 140 or less. 4. Weakness Chronic, ongoing for months. Check TSH, free T3, and free T4 - within normal limits. Consult placedto PT and OT to evaluate and treat. PT recommending skilled stay - patient agreeable right now. services tech following for discharge planning needs. 5. Diabetes Chronic, uncontrolled. Plan as above. Check HgbA1c in am - pending. 6. Tobacco use Chronic. Encouraged cessation. Patient not interested. May have nicotine patch. 7. Leukocytosis Chronic, unknown etiology. White blood cell count in the 13-14 range. Check iron studies and ferritin in am - levels of both low. DVT prophylaxis with SCDs. Code status: Full Code. Labs, diagnostic test and progress notes reviewed as noted in HPI. Plan of care discussed with patient. All questions answered. Patient verbalizes understanding and is agreeable with plan of care. This case was discussed with collaborating physician, Dr. Gigi Allen. Anticipated Date of Discharge 03/11/2024 Time Spent 35 minutes spent reviewing past diagnostic tests, reviewing lab results, vital sign trends, medicalhistory, reviewing medications and ordering home medications, examining patient, discussed plan of care with nursing, director social and therapy, collaborating with physician, and documenting in chart. Digitally Signed by BRAVO PEOPLES on 03/10/2024 04:17 PM [place] [id number] Note Date of Service 03/09/2024 Chief Complaint weakness Subjective Patient seen and evaluated this morning while sitting on the side of the bed. He informs this provider upon entering the room that he is not staying another night. He states that he usually sleeps onhis side at night and he was not turned correctly and ended up on his back. He cannot sleep on his back. Patient asked what he does at home to get and stay on his side. He states I have no problem getting myself positioned in my bed at home but it is hard to get on my side here. Patient advised that therapy will come in today to assess him and then, depending on what she says, will we talk about getting him out of here. Patient feels that his blood pressures and blood sugar are adequately controlled at this point. Patient reminded that he came in because he fell and wanted answers about whyhe is weak so it would behoove him to stay and see what therapy recommends. Patient denies any fever, chills, cough, shortness of breath, chest pain, abdominal pain, nausea or dysuria. All questions answered. Was notified by PT that patient walked to the door of his room but, when returning to the bed, stated he could not go any further and was lowered to the floor. It took max assist x 4 to get patient up and back in bed. Patient informed that he is welcome to sign out AMA, however, we recommend that he stay and be evaluated again tomorrow. Patient not happy about staying another night but agreed he will stay one more night. All questions answered. Objective Vitals and Measurements T: 36.5 C (Oral) TMIN: 36.4 C (Oral) TMAX: 36.7 C (Oral) HR: 117 RR: 18 BP: 145/92 SpO2: 97% HT: 188.0 cm WT: 128.6 kg BMI: 36.33 Intake and Output 7AM Yesterday to 7AM Today Intake and Output (Last 24 hours) Intake Oral Intake 480.00 Output Urine Voided 1825.00 Urine Count 1.00 Total Summary Total Intake 480.00 Total Output 1825.00 Fluid Balance -1345.00 Physical Exam General: No acute distress. Patient is alert, chronically ill-appearing. Skin: No rash. Skin is warm, dry and intact. HEENT: Head is normocephalic, atraumatic. Pupils are equal, round and reactive. Neck: Supple. No lymphadenopathy, thyromegaly. Lungs: Bilaterally clear but diminished without crepitation or wheeze. Unlabored. Heart: Heart is regular rhythm, S1, S2, tachycardic. No murmurs, gallops or rubs. Abdomen: Abdomen is soft, nontender, obese. Bowels sounds present in all quadrants. Extremities: No clubbing, cyanosis, or edema. Peripheral pulses palpable. No calf tenderness. Neurological: Patient is awake and alert to person, place and time. Following simple commands, moving all extremities. Weight Current Weight Dosing Weight: 128.4 kg (03/08/24) Current Weight: 128.6 kg (03/09/24) Medications Medications (19) Active Scheduled: (9) amLODIPine 5 mg tablet 10 mg 2 tab(s), Oral, qDay atorvastatin 10 mg tablet 20 mg 2 tab(s), Oral, qHS gabapentin 300 mg Capsule 300 mg 1 cap(s), Oral, qDay glimepiride 2 mg Tablet 8 mg 4 tab(s), Oral, qDay insulin glargine 100 units/ml solution 30 unit(s) 0.3 mL, Subcutaneous, qHS insulin lispro 100 units/mL Soln (3 mL) Give 0-10 units/dose, Subcutaneous, achs lisinopril 20 mg tablet 20 mg 1 tab(s), Oral, qDay Nicoderm patch REMOVAL 1 EA, Miscellaneous, q24h pantoprazole 20 mg EC tablet 40 mg 2 tab(s), Oral, qDayAC Continuous: (0) PRN: (10) acetaminophen 325 mg Tablet 650 mg 2 tab(s), Oral, q4h acetaminophen 325 mg Tablet 650 mg 2 tab(s), Oral, q4h albuterol - ipratropium 2.5 mg-0.5 mg/3 mL Inhal Elena UD 3 mL, Inhalation, q4hRT benzonatate 100 mg Capsule 100 mg 1 cap(s), Oral, TID calcium carbonate 500 mg Chewable 500 mg 1 tab(s), Chewed, TID guaifenesin 100 mg/5 mL Liquid SUGAR-FREE 120 mL 200 mg 10 mL, Oral, q4h hydralazine 20 mg/mL (1mL) vial 10 mg 0.5 mL, IV Push, q4h melatonin 3 mg tablet 6 mg 2 tab(s), Oral, qHS nicotine 21 mg/24 hr ER patch 21 mg 1 patch(es), Transdermal, q24h ondansetron 2 mg/ 1 mL 2 mL INJ 4 mg 2 mL, IV Push, q4h Lab Results 03/09 05:19 WBC: 14.1 H Hgb: 9.8 L Hct: 29.8 L Platelet: 300 Neutrophil %: 74.5 Glucose Level: 267 H Sodium Level: 135 L Potassium Level: 4.5 BUN: 47 H Creatinine Lvl (s): 2.73 H 03/08 12:53 WBC: 13.3 H Hgb: 11.2 L Hct: 34.1 L Platelet: 338 Neutrophil %: 77.2 Glucose Level: 492 C Sodium Level: 133 L Potassium Level: 5.3 H BUN: 52 H Creatinine Lvl (s): 3.08 H Imaging Results and Diagnostics XR Knee 3 Views Left Result Date: March 08, 2024 Verified By: KELVIN DOLL DO CLINICAL STATEMENT: IMPRESSION: No definite acute fracture or dislocation is identified. Small suprapatellar joint effusion. I have personally reviewed the images of this examination and agree with the resident's findings and interpretation. XR Chest 1 View Result Date: March 08, 2024 Verified By: KELVIN DOLL DO CLINICAL STATEMENT: IMPRESSION: No acute process. EKG No qualifying data available. Assessment/Plan 1. Acute kidney injury Acute, on chronic, resolved. Previous GFR in the system was 25 - back to baseline today. Repeat BMPin the am. 2. Hyperglycemia Acute, new onset, likely from noncompliance. Blood sugar checks before meals and at bedtime. Cover with medium-dose corrective sliding scale insulin. ADA diet. Continue Lantus to 30 units sc qhs. Blood sugar goal of 180 or less and avoid hypoglycemia. 3. Hypertension Chronic, uncontrolled. Continue Lisinopril 20 mg PO daily. Continue Amlodipine 10 mg PO daily. Continue hydralazine 10 mg IV q4 hours PRN for SBP > 160 mmHg. SBP goal of 140 or less. 4. Weakness Chronic, ongoing for months. Check TSH, free T3, and free T4 - within normal limits. Consult placedto PT and OT to evaluate and treat. PT recommending skilled stay but patient not agreeable. services tech following for discharge planning needs. 5. Diabetes Chronic, uncontrolled. Plan as above. Check HgbA1c in am - pending. 6. Tobacco use Chronic. Encouraged cessation. Patient not interested. May have nicotine patch. 7. Leukocytosis Chronic, unknown etiology. Check iron studies and ferritin in am - levels of both low. DVT prophylaxis with SCDs. Code status: Full Code. Labs, diagnostic test and progress notes reviewed as noted in HPI. Plan of care discussed with patient. All questions answered. Patient verbalizes understanding and is agreeable with plan of care. This case was discussed with collaborating physician, Dr. Gigi Allen. Anticipated Date of Discharge 03/11/2024 Time Spent 35 minutes spent reviewing past diagnostic tests, reviewing lab results, vital sign trends, medicalhistory, reviewing medications and ordering home medications, examining patient, discussed plan of care with nursing, collaborating with physician, and documenting in chart. Digitally Signed by BRAVO PEOPLES on 03/09/2024 02:37 PM [facility]04-21-2024 Nurse Progress note Pt ambulating with therapy, states his legs suddenly gave out. Therapy caught patient before fall. Assisted back to bed with 4 staff members. Pt denies pain. Digitally Signed by Nataly Del Rio RN on 03/09/2024 09:44 AM [facility]04-20-2024 Note Date of Service 03/08/2024 Chief Complaint slid out of shower chair. glucos over 500 History of Present Illness Patient is a 48-year-old male, who follows with Phoebe Adam CNP with a past medical history significant for type 2 diabetes, hypertension, hyperlipidemia, neuropathy, Charcot foot, and tobacco abuse,presents to [facility] emergency department with the chief complaint of weakness andfall today. Patient states that he was taking a shower when he fell and bent his left knee backwards. He adds that he has been feeling generally weak lately mostly in the right leg and bilateral arms. Patient's blood sugar was noted to be elevated by EMS, 500, and systolic blood pressure 180 when they checked it. Patient states that he is compliant with his medications but his PCP is adjusting his diabetes medications. He states that he feels like he has a pinched nerve somewhere and really just wants to figure out why he has this weakness. He does not feel that his main issue, weakness, isbeing addressed. Patient denies any back or neck pain. He further denies any fever, chills, cough, shortness of breath, chest pain, abdominal pain, nausea or dysuria. In the emergency department, x-ray of the left knee revealed no definite acute fracture or dislocation is identified. Small suprapatellar joint effusion. Chest x-ray demonstrated no acute process. EKG revealed sinus tachycardia with right bundle branch block. White blood cell count 13.3. CBC remarkable for hemoglobin 11.2 and hematocrit 34.1. BMP significant for glucose 492, sodium 133, potassium 5.3, BUN 52, creatinine 3.08 and magnesium 1.6. Troponin negative. Urinalysis significant for glucose greater than 1000, small blood and protein greater than 300. Patient was administered 1 liter of NS, 10 units regular insulin IV, 10 mg lokelma PO, 10 mg hydralazine IV x 2 and 2 grams magnesium sulfate IV in the ED. The case was discussed with the ED physician who recommended admission to get blood sugars under better control and have PT/OT see patient. Patient will be transferred to medical surgical unit for observation. We will start corrective sliding scale insulin. Increase patient's Lantus to 30 units sc qhs. Check HgbA1c in am. We will consult PT and OT to evaluate and treat patient.Repeat CBC and BMP in the am. Patient seen and evaluated while resting on cot in the ED. Patient states repeatedly I really don't want to stay. Patient advised that he can leave against medical advice if he does not wish to say. He adds that we are not addressing the real problem that he came in with and that is that he has we akness in his arms and left leg. He wants to know why he has this. Patient denies any neck or back pain making a pinched nerve unlikely. We can have therapy see him and see what they think. Patient also advised that his high blood sugars may be making him feel more weak. By not controlling his blood sugars, the glucose is not getting into cells where it is needed for energy. Patient concerned that he will not get up to the floor in time to eat dinner. Will ask staff to make sure he can eat. Physical exam unremarkable. All questions answered. Review of Systems Review of Systems: Reviewed in detail, including general health, HEENT, cardiovascular, respiratory, gastrointestinal, genitourinary, endocrine, musculoskeletal, neurologic, vascular, skin, and psychiatric. All are negative except for those listed in the History of Present Illness. Physical Exam Vitals and Measurements T: 37.1 C (Oral) HR: 102 RR: 18 BP: 186/107 SpO2: 99% No qualifying data available. General: No acute distress. Patient is alert and appropriate. Skin: No rash. Skin is warm, dry and intact. HEENT: Head is normocephalic, atraumatic. Pupils are equal, round and reactive. Neck: Supple. No lymphadenopathy, thyromegaly. Lungs: Bilaterally clear but diminished without crepitation or wheeze. Unlabored. Heart: Heart is regular rhythm, S1, S2. No murmurs, gallops or rubs. Abdomen: Abdomen is soft, nontender, obese. Bowels sounds present in all quadrants. Extremities: No clubbing, cyanosis; generalized edema noted. Peripheral pulses palpable. No calf tenderness. Charcot foot noted on right. Neurological: Patient is awake and alert to person, place and time. Following simple commands, moving all extremities. Lab Results 03/08 12:53 WBC: 13.3 H Hgb: 11.2 L Hct: 34.1 L Platelet: 338 Neutrophil %: 77.2 Glucose Level: 492 C Sodium Level: 133 L Potassium Level: 5.3 H BUN: 52 H Creatinine Lvl (s): 3.08 H Imaging Results and Diagnostics XR Knee 3 Views Left Result Date: March 08, 2024 Verified By: KEVLIN DOLL DO CLINICAL STATEMENT: IMPRESSION: No definite acute fracture or dislocation is identified. Small suprapatellar joint effusion. I have personally reviewed the images of this examination and agree with the resident's findings and interpretation. XR Chest 1 View Result Date: March 08, 2024 Verified By: KELVIN DOLL DO CLINICAL STATEMENT: IMPRESSION: No acute process. EKG EC03/08/24: Sinus tachycardia Right bundle branch block Electronic Signature: CATHERINE ARREDONDO DO 03/08/2024 13:14:28 Assessment/Plan 1. Acute kidney injury Acute, on chronic. Previous GFR in the system was 25 - down to 22 today. Continue NS @ 75cc/hr x 24hours. Repeat BMP in the am. 2. Hyperglycemia Acute, new onset, likely from noncompliance. Blood sugar checks before meals and at bedtime. Cover with medium-dose corrective sliding scale insulin. ADA diet. Increase Lantus to 30 units sc qhs. Blood sugar goal of 180 or less and avoid hypoglycemia. 3. Hypertension Chronic, uncontrolled. Increase Lisinopril to 40 mg PO daily. Add Amlodipine 10 mg PO daily. Start hydralazine 10 mg IV q4 hours PRN for SBP > 160 mmHg. SBP goal of 140 or less. 4. Weakness Chronic, ongoing for months. Check TSH, free T3, and free T4. Consult placed to PT and OT to evaluate and treat. services tech following for discharge planning needs. 5. Diabetes Chronic, uncontrolled. Plan as above. Check HgbA1c in am. 6. Tobacco use Chronic. Encouraged cessation. Patient not interested. May have nicotine patch. 7. Leukocytosis Chronic, unknown etiology. Check iron studies and ferritin in am. DVT prophylaxis with SCDs. Code status: Full Code. Labs, diagnostic test and progress notes reviewed as noted in HPI. Plan of care discussed with patient. All questions answered. Patient verbalizes understanding and is agreeable with plan of care. This case was discussed with collaborating physician, Dr. Gigi Allen. 75 minutes spent reviewing past diagnostic tests, reviewing lab results, vital sign trends, medicalhistory, reviewing medications and ordering home medications, examining patient, discussed plan of care with nursing, collaborating with physician, and documenting in chart. Problem List/Past Medical History Ongoing Diabetes GERD (gastroesophageal reflux disease) High cholesterol Historical No qualifying data Procedure/Surgical History Testicle Medications Home Medications (9) Active gabapentin 100 mg oral capsule 300 mg = 3 cap(s), Oral, qDay Lantus 100 units/mL10 ml vial solution 20 unit(s) = 0.2 mL, Subcutaneous, qHS lisinopril 20 mg oral tablet omeprazole 40 mg oral delayed release capsule 40 mg = 1 cap(s), Oral, BID rosuvastatin 10 mg oral tablet TRUE METRIX LINDA GLUCOSE TRUE METRIX GLUCOSE TEST STRIP TRUEPLUS 33G LANCETS TRUPLUS LANC MIS 33G Allergies ampicillin penicillin Social History Smoking Status - 08/17/2018 Current every day smoker Alcohol - No Risk, 09/19/2020 Use: Current. Frequency: 1-2 times per year., 07/07/2023 Use: Current., 08/17/2018 Substance Abuse - Denies Substance Abuse, 08/17/2018 Use: Never., 04/30/2019 Tobacco - No Risk, 09/19/2020 Tobacco Use: 10 or more cigarettes (1/2 pack or more)/day in last 30 days. Type: Cigarettes., 04/30/2019 Family History Patient was adopted Family history is unknown Immunizations tetanus/diphth/pertuss (Tdap) adult/adol: 0.5 mL (08/17/18) Code Status Code Status - Ordered -- 03/08/24 14:37:00 EDT, Full Code, Constant Order Digitally Signed by BRAVO PEOPLES on 03/08/2024 05:03 PM [facility]04-20-2024 Evaluation + Plan noteExtracted from: Title:History and Physical Author:SHELTON BRAVO M [employer] Date:03/08/24 1. Acute kidney injury Acute, on chronic. Previous GFR in the system was 25 - down to 22 today. Continue NS @ 75cc/hr x 24 hours. Repeat BMP in the am. 2. Hyperglycemia Acute, new onset, likely from noncompliance. Blood sugar checks before meals and at bedtime. Cover with medium-dose corrective sliding scale insulin. ADA diet. Increase Lantus to 30 units sc qhs. Blood sugar goal of 180 or less and avoid hypoglycemia. 3. Hypertension Chronic, uncontrolled. Increase Lisinopril to 40 mg PO daily. Add Amlodipine 10 mg PO daily. Start hydralazine 10 mg IV q4 hours PRN for SBP > 160 mmHg. SBP goal of 140 or less. 4. Weakness Chronic, ongoing for months. Check TSH, free T3, and free T4. Consult placed to PT and OT to evaluate and treat. services tech following for discharge planning needs. 5. Diabetes Chronic, uncontrolled. Plan as above. Check HgbA1c in am. 6. Tobacco use Chronic. Encouraged cessation. Patient not interested. May have nicotine patch. 7. Leukocytosis Chronic, unknown etiology. Check iron studies and ferritin in am. DVT prophylaxis with SCDs. Code status: Full Code. Labs, diagnostic test and progress notes reviewed as noted in HPI. Plan of care discussed with patient. All questions answered. Patient verbalizes understanding and is agreeable with plan of care. This case was discussed with collaborating physician, Dr. Gigi Allen. 75 minutes spent reviewing past diagnostic tests, reviewing lab results, vital sign trends, medical history, reviewing medications and ordering home medications, examining patient, discussed plan of care with nursing, collaborating with physician, and documenting in chart. [facility] 04-20-2024 Note ORIGINAL EXAMINATION: THREE XRAY VIEWS OF THE LEFT KNEE03/08/2024 1:20 pm COMPARISON: None HISTORY: ORDERING SYSTEM PROVIDED HISTORY: Reason for Exam: fall FINDINGS: No definite acute fracture or dislocation is identified. Bony alignment is within normal limits. Well corticated ossific densities inferior to the patella may represent sequela of prior insult. Mild tricompartmental degenerative changes. Patellar enthesophytes. Small suprapatellar joint effusion. The soft tissues are unremarkable. Pelvic phleboliths. IMPRESSION: No definite acute fracture or dislocation is identified. Small suprapatellar joint effusion. I have personally reviewed the images of this examination and agree with the resident's findings and interpretation. Interpreted by: Kelvin Doll DO Preliminary Report By: Manisha Acuna Electronically signed By Kelvin Doll DO Dictated Date: 03/08/2024 1:27:11 PM Prelim Date: 03/08/2024 1:32:28 PM Sign Date: 03/08/2024 1:40:07 PM Ordering Provider: [facility]04-20-2024 Note ORIGINAL EXAMINATION: ONE XRAY VIEW OF THE CHEST 03/08/2024 1:19 pm COMPARISON: None. HISTORY: ORDERING SYSTEM PROVIDED HISTORY: Reason for Exam: fall FINDINGS: The lungs are without acute focal process. There is no effusion or pneumothorax. The cardiomediastinal silhouette is without acute process. The osseous structures are without acute process. IMPRESSION: No acute process. Interpreted by: Kelvin Doll DO Preliminary Report By: Kelvin Doll DO Electronically signed By Kelvin Doll DO Dictated Date: 03/08/2024 1:26:48 PM Prelim Date: 03/08/2024 1:27:14 PM Sign Date: 03/08/2024 1:27:14 PM Ordering Provider: [facility]04-20-2024 Note Sinus tachycardia Right bundle branch block Electronic Signature: CATHERINE ARREDONDO DO 03/08/2024 13:14:[address] [place] [address] 04-01-2024 Telephone encounter Note* Telephone Encounter - MOIRA Samuels CNP - 02/18/2024 9:55 AM EDT Reviewed chart. Refill appropriate. RX sent. [id number] Miscellaneous Notes* Telephone Encounter - MOIRA Samuels CNP - 02/18/2024 9:55 AM EDT Reviewed chart. Refill appropriate. RX sent. * Telephone Encounter - Yadira Uribe MA - 02/18/2024 9:45 AM EDT Prescription Request: Last medication check: 04/05/2023 Last physical exam: 06/22/2021 Next scheduled appointment: 02/25/2024 Last date of refill on this medication: 11/05/23 documented in this [facility]04-01-2024 Telephone encounter Note* Telephone Encounter - Yadira Uribe MA - 02/18/2024 9:45 AM EDT Prescription Request: Last medication check: 04/05/2023 Last physical exam: 06/22/2021 Next scheduled appointment: 02/25/2024 Last date of refill on this medication: 11/05/23 [facility] Telephone encounter Note* Telephone Encounter - Yadira Uribe MA - 02/05/2024 3:02 PM EDT Prescription Request: Last medication check: 04/05/23 Last physical exam: 06/22/21 Next scheduled appointment: 02/18/24 Last date of refill on this medication 12/17/23 [facility]Tcnkjf24-[facility]-5995 Miscellaneous Notes* Telephone Encounter - Yadira Uribe MA - 02/05/2024 3:02 PM EDT Prescription Request: Last medication check: 04/05/23 Last physical exam: 06/22/21 Next scheduled appointment: 02/18/24 Last date of refill on this medication 12/17/23 documented in this [place] [address]-19-2024 Telephone encounter Note* Telephone Encounter - MOIRA Samuels CNP - 02/05/2024 12:57 PM EDT Reviewed chart. Refill appropriate. RX sent. [place] [id number] Miscellaneous Notes* Telephone Encounter - MOIRA Samuels CNP - 02/05/2024 12:57 PM EDT Reviewed chart. Refill appropriate. RX sent. * Telephone Encounter - Miguelina Ashford MA - 02/05/2024 11:00 AM EDT Prescription Request: Last medication check: 04/05/23 Last physical exam: 06/22/21 Next scheduled appointment: 02/18/24 Last date of refill on this medication 08/15/23 30 day 5 refills documented in this [place] [address]-19-2024 Telephone encounter Note* Telephone Encounter - Miguelina Ashford MA - 02/05/2024 11:00 AM EDT Prescription Request: Last medication check: 04/05/23 Last physical exam: 06/22/21 Next scheduled appointment: 02/18/24 Last date of refill on this medication 08/15/23 30 day 5 refills [facility]Ltzood22-56-2921 Telephone encounter Note* Telephone Encounter - MOIRA Peralta CNP - 01/21/2024 12:33 PM EST Rx sent for small supply. Follow up as scheduled. [facility]Bxrntw04-44-7274 Miscellaneous Notes* Telephone Encounter - MOIRA Peralta CNP - 01/21/2024 12:33 PM EST Rx sent for small supply. Follow up as scheduled. * Telephone Encounter - Kasey Hankins - 01/21/2024 10:40 AM EST Prescription Request: Last medication check: 04/05/23 Last physical exam: 06/22/21 Next scheduled appointment: was scheduled tomorrow but canceled now on 01/28/24 Last date of refill on this medication 07/20/23 [facility]Bbynxn59-05-6391 Telephone encounter Note* Telephone Encounter - Kasey Hankins - 01/21/2024 10:40 AM EST Prescription Request: Last medication check: 04/05/23 Last physical exam: 06/22/21 Next scheduled appointment: was scheduled tomorrow but canceled now on 01/28/24 Last date of refill on this medication 07/20/23 [id number] Telephone encounter Note* Telephone Encounter - Vishal Kingsley LPN - 01/01/2024 11:55 AM EST Prescription Request: Last medication check: 04/05/23 Last physical exam: 06/22/21 Next scheduled appointment: not found Last date of refill on this medication 10/03/23 #60 2 refills [id number] Miscellaneous Notes* Telephone Encounter - Vishal Kingsley LPN - 01/01/2024 11:55 AM EST Prescription Request: Last medication check: 04/05/23 Last physical exam: 06/22/21 Next scheduled appointment: not found Last date of refill on this medication 10/03/23 #60 2 refills documented in this [facility]01-29-2024 Telephone encounter Note* Telephone Encounter - MOIRA Peralta CNP - 12/17/2023 8:45 AM EST Rx sent. Needs to reschedule his diabetic maintenance visit [place]. [facility] HospitalGicbpb71-10-2720 Miscellaneous Notes* Telephone Encounter - MOIRA Peralta CNP - 12/17/2023 8:45 AM EST Rx sent. Needs to reschedule his diabetic maintenance visit [place]. * Telephone Encounter - Vishal Kingsley LPN - 12/17/2023 6:55 AM EST Prescription Request: Last medication check: 04/05/23 Last physical exam: 06/22/21 Next scheduled appointment: not found Last date of refill on this medication 07/30/23 3 ml 1 refill documented in this [facility]01-29-2024 Telephone encounter Note* Telephone Encounter - Vishal Kingsley LPN - 12/17/2023 6:55 AM EST Prescription Request: Last medication check: 04/05/23 Last physical exam: 06/22/21 Next scheduled appointment: not found Last date of refill on this medication 07/30/23 3 ml 1 refill [facility]Ovzfgp04-29-5636 Telephone encounter Note* Telephone Encounter - MOIRA Samuels CNP - 10/18/2023 2:56 PM EST Reviewed chart. Refill appropriate. RX sent. [facility] HospitalTsdgyt04-39-9982 Miscellaneous Notes* Telephone Encounter - MOIRA Samuels CNP - 10/18/2023 2:56 PM EST Reviewed chart. Refill appropriate. RX sent. * Telephone Encounter - Yadira Uribe MA - 10/18/2023 2:17 PM EST Prescription Request: Last medication check: 04/05/23 Last physical exam: 06/22/21 Next scheduled appointment: 10/30/23 CSA 01/08/23, UDS 05/16/22 Last date of refill on this medication 09/19/23 documented in this [facility]SProv[facility] HospitalKplwbh14-61-3722 Telephone encounter Note* Telephone Encounter - Yadira Uribe MA - 10/18/2023 2:17 PM EST Prescription Request: Last medication check: 04/05/23 Last physical exam: 06/22/21 Next scheduled appointment: 10/30/23 CSA 01/08/23, UDS 05/16/22 Last date of refill on this medication 09/19/23 [place] [id number] Telephone encounter Note* Telephone Encounter - MOIRA Samuels CNP - 10/03/2023 12:11 PM EST Reviewed chart. Refill appropriate. RX sent. [facility] [id number] Miscellaneous Notes* Telephone Encounter - MOIRA Samuels CNP - 10/03/2023 12:11 PM EST Reviewed chart. Refill appropriate. RX sent. * Telephone Encounter - Miguelina Ashford MA - 10/03/2023 11:19 AM EST Prescription Request: Last medication check: 04/05/23 Last physical exam: 06/22/21 Next scheduled appointment: 10/30/23 Last date of refill on this medication 07/12/23 1 month 2 refills documented in this [facility]11-15-2023 Telephone encounter Note* Telephone Encounter - Miguelina Ashford MA - 10/03/2023 11:19 AM EST Prescription Request: Last medication check: 04/05/23 Last physical exam: 06/22/21 Next scheduled appointment: 10/30/23 Last date of refill on this medication 07/12/23 1 month 2 refills [facility]Rhqkoa99-89-9737 Telephone encounter Note* Telephone Encounter - MOIRA Samuels CNP - 08/27/2023 8:50 AM EDT Reviewed chart. Refill appropriate. RX sent. [address]gegjn73-89-6019 Miscellaneous Notes* Telephone Encounter - MOIRA Samuels CNP - 08/27/2023 8:50 AM EDT Reviewed chart. Refill appropriate. RX sent. * Telephone Encounter - Miguelina Ashford MA - 08/27/2023 7:28 AM EDT Prescription Request: Last medication check: 04/05/23 Last physical exam: 06/22/21 Next scheduled appointment: none Last date of refill on this medication 07/05/23 4 pens 2 refills documented in this [facility]10-09-2023 Telephone encounter Note* Telephone Encounter - Miguelina Ashford MA - 08/27/2023 7:28 AM EDT Prescription Request: Last medication check: 04/05/23 Last physical exam: 06/22/21 Next scheduled appointment: none Last date of refill on this medication 07/05/23 4 pens 2 refills [facility] [id number] Telephone encounter Note* Telephone Encounter - Yadira Uribe MA - 08/15/2023 2:14 PM EDT Prescription Request: Last medication check: 04/05/23 Last physical exam: 06/22/21 Next scheduled appointment: none Last date of refill on this medication 03/20/2023 [facility] HospitalYhpnle74-26-6743 Miscellaneous Notes* Telephone Encounter - Yadira Uribe MA - 08/15/2023 2:14 PM EDT Prescription Request: Last medication check: 04/05/23 Last physical exam: 06/22/21 Next scheduled appointment: none Last date of refill on this medication 03/20/2023 documented in this [facility]09-15-2023 Telephone encounter Note* Telephone Encounter - Alexa Watt - 08/03/2023 10:37 AM EDT No message for patient [facility] HospitalEkvtxq89-90-6913 Miscellaneous Notes* Telephone Encounter - Alexa Watt - 08/03/2023 10:37 AM EDT No message for patient * Telephone Encounter - Lakesha Payneord - 07/30/2023 10:29 AM EDT Name of caller: Gurinder Contact phone number: [phone] Relationship to Patient: patient Provider: Dr. Jackson Practice: [facility] Chief Complaint/Reason for Call: The patient is returning a call to Alexa he states she called him on 07/27/2023. I didn't see a message from Alexa for the patient. Please advise. Best time of day caller can be reached: Any Patient advised that office/PCP has 24-48 business hours to return their call: No documented in this encounterSProvidence HospitalWsacpo16-70-0814 Telephone encounter Note* Telephone Encounter - MOIRA Samuels CNP - 07/30/2023 4:22 PM EDT Reviewed chart. Refill appropriate. RX sent. [facility] HospitalBopkvr78-29-3976 Miscellaneous Notes* Telephone Encounter - MOIRA Samuels CNP - 07/30/2023 4:22 PM EDT Reviewed chart. Refill appropriate. RX sent. * Telephone Encounter - Rae Hernandez MA - 07/30/2023 2:57 PM EDT Prescription Request: Last medication check: 04/05/23 Last physical exam: 06/22/21 Next scheduled appointment: none Last date of refill on this medication 07/05/23 3ml 1 refill documented in this encounterSProv[facility] HospitalPzqkgq75-15-7735 Telephone encounter Note* Telephone Encounter - Rae Hernandez MA - 07/30/2023 2:57 PM EDT Prescription Request: Last medication check: 04/05/23 Last physical exam: 06/22/21 Next scheduled appointment: none Last date of refill on this medication 07/05/23 3ml 1 refill [facility] HospitalNivipx45-22-4008 Telephone encounter Note* Telephone Encounter - Lakesha Bai - 07/30/2023 10:29 AM EDT Name of caller: Gurinder Contact phone number: [phone] Relationship to Patient: patient Provider: Dr. Jackson Practice: [facility] Chief Complaint/Reason for Call: The patient is returning a call to Alexa he states she called him on 07/27/2023. I didn't see a message from Alexa for the patient. Please advise. Best time of day caller can be reached: Any Patient advised that office/PCP has 24-48 business hours to return their call: No [facility] HospitalJgwfrd83-48-3428 Telephone encounter Note* Telephone Encounter - Alexa Watt - 07/26/2023 8:45 AM EDT Called and LM for patient----inform patient he needs to schedule with endocrinology for DM. [place] [id number] Miscellaneous Notes* Telephone Encounter - Alexa Watt - 07/26/2023 8:45 AM EDT Called and LM for patient----inform patient he needs to schedule with endocrinology for DM. * Telephone Encounter - MOIRA Peralta CNP - 07/20/2023 12:03 PM EDT Rx sent. Reminder he still needs to schedule an appointment with endocrinology for his diabetes. * Telephone Encounter - Rae Hernandez MA - 07/20/2023 11:23 AM EDT Prescription Request: Last medication check: 04/05/23 Last physical exam: 06/22/21 Next scheduled appointment: none Last date of refill on this medication 01/08/23 90 days 1 refill documented in this [facility]09-01-2023 Telephone encounter Note* Telephone Encounter - MOIRA Peralta CNP - 07/20/2023 12:03 PM EDT Rx sent. Reminder he still needs to schedule an appointment with endocrinology for his diabetes. [facility] HospitalRyagnb09-08-8387 Miscellaneous Notes* Telephone Encounter - MOIRA Peralta CNP - 07/20/2023 12:03 PM EDT Rx sent. Reminder he still needs to schedule an appointment with endocrinology for his diabetes. * Telephone Encounter - Rae Hernandez MA - 07/20/2023 11:23 AM EDT Prescription Request: Last medication check: 04/05/23 Last physical exam: 06/22/21 Next scheduled appointment: none Last date of refill on this medication 01/08/23 90 days 1 refill documented in this [facility]09-01-2023 Telephone encounter Note* Telephone Encounter - Rae Hernandez MA - 07/20/2023 11:23 AM EDT Prescription Request: Last medication check: 04/05/23 Last physical exam: 06/22/21 Next scheduled appointment: none Last date of refill on this medication 01/08/23 90 days 1 refill [facility]Smggcc31-55-2498 Telephone encounter Note* Telephone Encounter - MOIRA Samuels CNP - 07/12/2023 11:59 AM EDT Reviewed chart. Refill appropriate. RX sent. [facility] HospitalKcgwxe73-14-0467 Miscellaneous Notes* Telephone Encounter - MOIRA Samuels CNP - 07/12/2023 11:59 AM EDT Reviewed chart. Refill appropriate. RX sent. * Telephone Encounter - Yadira Uribe MA - 07/12/2023 11:31 AM EDT Prescription Request: Last medication check: 04/05/23 Last physical exam: 06/22/21 Next scheduled appointment: none Last date of refill on this medication 04/09/23 documented in this [facility]08-24-2023 Telephone encounter Note* Telephone Encounter - Yadira Uribe MA - 07/12/2023 11:31 AM EDT Prescription Request: Last medication check: 04/05/23 Last physical exam: 06/22/21 Next scheduled appointment: none Last date of refill on this medication 04/09/23 [id number] Hospital Discharge instructions Patient Education 07/07/2023 19:57:24 Urinary Tract Infections in Men Urinary Tract Infections in Men Urinary tract infections (UTIs) are most often caused by bacteria that invade the urinary tract. The bacteria may come from outside the body. Or they may travel from the skin outside of the rectum into the urethra. Pain in or around the urinary tract is a common symptom for most UTIs. But the only way to know for sure if you have a UTI is to have a urinalysis and urine culture. Types of UTIs Cystitis. This is a bladder infection. It is often linked to a blockage from an enlarged prostate. You may have an urgent or frequent need to urinate, and bloody urine. Treatment includes antibioticsand medicine to relax or shrink the prostate. Sometimes you will need surgery. Urethritis. This is an infection of the urethra. You may have a discharge from the urethra or burning when you urinate. You may also have pain in the urethra or penis. It is treated with antibiotics. Prostatitis. This is an inflammation or infection of the prostate. You may have an urgent or frequent need to urinate, fever, or burning when you urinate. Or you may have a tender prostate, or a vague feeling of pressure. Prostatitis is treated with a range of medicines, depending on the cause. Pyelonephritis. This is a kidney infection. If not treated, it can be serious and damage your kidneys. In severe cases you may need to stay in the hospital. You may have a fever and lower back pain. Medicines to treat a UTI Most UTIs are treated with antibiotics. These kill the bacteria. The length of time you need to take them depends on the type of infection. Take antibiotics exactly as directed until all of the medicine is gone. If you don't, the infection may not go away and may become harder to treat. For certaintypes of UTIs, you may be given other medicine to help treat your symptoms. Lifestyle changes to treat and prevent UTIs The lifestyle changes below will help get rid of your current infection. They may also help preventfuture UTIs. Drink plenty of fluids such as water, juice, or other caffeine-free drinks. This helps flush bacteria out of your system. Empty your bladder when you feel the urge to urinate and before going to sleep. Urine that stays inyour bladder promotes infection. Use condoms during sex. These help prevent UTIs caused by sexually transmitted bacteria. Keep follow-up appointments with your healthcare provider. He or she can may do tests to make sure the infection has cleared. If needed, more treatment can be started. Other treatments to prevent UTIs Most UTIs respond to medicine. But sometimes you will need a procedure or surgery. This can treat an enlarged prostate, or remove a kidney stone or other blockage. Surgery may also treat problems caused by scarring or long-term infections. [id number] [employer] [place], [place] [id number]. All rights reserved. This information is not intended as a substitute for professional medical care. Always follow yourhealthcare professional's instructions. 07/07/2023 19:57:10 Bladder Infection, Male (Adult) Bladder Infection, Male (Adult) You have a bladder infection. Urine is normally free of bacteria. But bacteria can get into the urinary tract from the skin around the rectum or it may travel in the blood from elsewhere in the body. This is called a urinary tract infection (UTI). An infection can occur anywhere in the urinary tract. It could be in a kidney (pyelonephritis)or in the bladder (cystitis) and urethra (urethritis). The urethra is the tube that drains the urine from the bladder through the tip of the penis. The most common place for a UTI is in the bladder. This is called a bladder infection. Most bladderinfections are easily treated. They are not serious unless the infection spreads up to the kidney. The terms bladder infection, UTI, and cystitis are often used to describe the same thing, but they aren t always the same. Cystitis is an inflammation of the bladder. The most common cause of cystitis is an infection. Keep in mind: Infections in the urine are called UTIs. Cystitis is usually caused by a UTI. Not all UTIs and cases of cystitis are bladder infections. Bladder infections are the most common type of cystitis. Symptoms of a bladder infection The infection causes inflammation in the urethra and bladder. This inflammation causes many of the symptoms. The most common symptoms of a bladder infection are: Pain or burning when urinating Having to go more often than usual Feeling like you need to go right away Only a small amount comes out Blood in urine Discomfort in your belly (abdomen), usually in the lower abdomen, above the pubic bone Cloudy, strong, or bad smelling urine Unable to urinate (retention) Urinary incontinence Fever Loss of appetite Older adults may also feel confused. Causes of a bladder infection Bladder infections are not contagious. You can't get one from someone else, from a toilet seat, or from sharing a bath. The most common cause of bladder infections is bacteria from the bowels. The bacteria get onto the skin around the opening of the urethra. From there they can get into the urine and travel up to the bladder. This causes inflammation and an infection. This usually happens because of: An enlarged prostate Poor cleaning of the genitals Procedures that put a tube in your bladder, like a Hernandez catheter Bowel incontinence Older age Not emptying your bladder (The urine stays there, giving the bacteria a chance to grow.) Dehydration (This allows urine to stay in the bladder longer.) Constipation (This can cause the bowels to push on the bladder or urethra and keep the bladder fromemptying.) Treatment Bladder infections are treated with antibiotics. They usually clear up quickly without complications. Treatment helps prevent a more serious kidney infection. Medicines Medicines can help in the treatment of a bladder infection: You may have been given phenazopyridine to ease burning when you urinate. It will cause your urine to be bright orange. It can stain clothing. You may have been prescribed antibiotics. Take this medicine until you have finished it, even if you feel better. Taking all of the medicine will make sure the infection has cleared. You can use acetaminophen or ibuprofen for pain, fever, or discomfort, unless another medicine was prescribed. You can also alternate them, or use both together. They work differently and are a different class of medicines, so taking them together is not an overdose. If you have chronic liver or kidney disease, talk with your healthcare provider before using these medicines. Also talk with your provider if you ve had a stomach ulcer or GI bleeding or are taking blood thinner medicines. Home care Here are some guidelines to help you care for yourself at home: Drink plenty of fluids, unless your healthcare provider told you not to. Fluids will prevent dehydration and flush out your bladder. Use good personal hygiene. Wipe from front to back after using the toilet, and clean your penis regularly. If you aren t circumcised, retract the foreskin when cleaning. Urinate more frequently, and don t try to hold it in for long periods of time, if possible. Wear loose-fitting clothes and cotton underwear. Avoid tight-fitting pants. This helps keep you clean and dry. Change your diet to prevent constipation. This means eating more fresh foods and more fiber, and less junk and fatty foods. Avoid sex until your symptoms are gone. Avoid caffeine, alcohol, and spicy foods. These can irritate the bladder. Follow-up care Follow up with your healthcare provider, or as advised if all symptoms have not cleared up within 5days. It is important to keep your follow-up appointment. You can talk with your provider to see ifyou need more tests of the urinary tract. This is especially important if you have infections that keep coming back. If a culture was done, you will be told if your treatment needs to be changed. If directed, you cancall to find out the results. If X-rays were taken, you will be told of any findings that may affect your care. Call 911 Call 911 if any of these occur: Trouble breathing Difficulty waking up Feeling confused Fainting or loss of consciousness Rapid heart rate When to seek medical advice Call your healthcare provider right away if any of these occur: Fever of 100.4 F (38 C) or higher, or as directed by your healthcare provider Your symptoms don t improve after 2 days of treatment Back or abdominal pain that gets worse Repeated vomiting, or you aren t able to keep medicine down Weakness or dizziness [id number] [employer]. [address] [place] [address], [place] [address]. All rights reserved. This information is not intended as a substitute for professional medical care. Always follow yourhealthcare professional's instructions. Follow Up Care 07/07/2023 18:18:59 With:ARTIE JACKSON MD Address: [address] [place] [address]- When:2-4 days Comments:Schedule appointment as soon as possible [facility] 08-19-2023 Emergency department Discharge summary Discharge Instructions Thank you for allowing [facility] to assist you with your healthcare needs. The following is importantdischarge information regarding your hospital visit. Diagnosis from Today's Visit Back pain Urination painful What to Do Next Instructions from Your Care Team Return precautions if you develop fever, worsening dysuria, abdominal pain, N/V No qualifying data available. Post Acute Orders No qualifying data available. You Need to Schedule the Following Appointments Follow Up with ARTIE JACKSON MD When Within 2-4 days Why: Schedule appointment as soon as possible Where: [address] [place] [address]- Allergies ampicillin penicillin Medications Please ask your primary doctor or pharmacist before taking any other medication not listed, including over the counter drugs, herbal medications, vitamins and or supplements as they may interact withyour home medications. What How Much When Instructions Last Dose Unchanged acetaminophen (Tylenol 325 mg oral capsule) 650 Milligram by mouth Every 4 hours as needed for Pain, scale 1-3 Unchanged alogliptin (Alogliptin 25 mg oral tablet) Unchanged fenofibrate (fenofibrate 145 mg oral tablet) Unchanged gabapentin (gabapentin 100 mg oral capsule) Unchanged insulin glargine (Lantus 100 units/ mL10 ml vial solution) 20 unit(s) Subcutaneous Daily at bedtime Duration: 30 Days Unchanged lisinopril (lisinopril 20 mg oral tablet) Unchanged metFORMIN (metFORMIN 1000 mg oral tablet) 1 tab(s) by mouth Two (2) times a day Duration: 30 Days Unchanged Misc Medication (TRUE METRIX LINDA GLUCOSE) Unchanged Misc Medication (TRUE METRIX GLUCOSE TEST STRIP) Unchanged Misc Medication (TRUEPLUS 33G LANCETS) Unchanged Misc Medication (TRUPLUS LANC MIS 33G) Unchanged omeprazole (omeprazole 40 mg oral delayed release capsule) Unchanged rosuvastatin (rosuvastatin 10 mg oral tablet) Please take this list to your next doctor s visit. Bring all medications you take, including over the counter medications, herbals and other supplements with you to your doctor s visit. Patients and families are reminded to discard old lists and to update any records with all medication providers or retail pharmacies. Education Materials Urinary Tract Infections in Men Urinary tract infections (UTIs) are most often caused by bacteria that invade the urinary tract. The bacteria may come from outside the body. Or they may travel from the skin outside of the rectum into the urethra. Pain in or around the urinary tract is a common symptom for most UTIs. But the only way to know for sure if you have a UTI is to have a urinalysis and urine culture. Types of UTIs Cystitis. This is a bladder infection. It is often linked to a blockage from an enlarged prostate. You may have an urgent or frequent need to urinate, and bloody urine. Treatment includes antibioticsand medicine to relax or shrink the prostate. Sometimes you will need surgery. Urethritis. This is an infection of the urethra. You may have a discharge from the urethra or burning when you urinate. You may also have pain in the urethra or penis. It is treated with antibiotics. Prostatitis. This is an inflammation or infection of the prostate. You may have an urgent or frequent need to urinate, fever, or burning when you urinate. Or you may have a tender prostate, or a vague feeling of pressure. Prostatitis is treated with a range of medicines, depending on the cause. Pyelonephritis. This is a kidney infection. If not treated, it can be serious and damage your kidneys. In severe cases you may need to stay in the hospital. You may have a fever and lower back pain. Medicines to treat a UTI Most UTIs are treated with antibiotics. These kill the bacteria. The length of time you need to take them depends on the type of infection. Take antibiotics exactly as directed until all of the medicine is gone. If you don't, the infection may not go away and may become harder to treat. For certaintypes of UTIs, you may be given other medicine to help treat your symptoms. Lifestyle changes to treat and prevent UTIs The lifestyle changes below will help get rid of your current infection. They may also help preventfuture UTIs. Drink plenty of fluids such as water, juice, or other caffeine-free drinks. This helps flush bacteria out of your system. Empty your bladder when you feel the urge to urinate and before going to sleep. Urine that stays inyour bladder promotes infection. Use condoms during sex. These help prevent UTIs caused by sexually transmitted bacteria. Keep follow-up appointments with your healthcare provider. He or she can may do tests to make sure the infection has cleared. If needed, more treatment can be started. Other treatments to prevent UTIs Most UTIs respond to medicine. But sometimes you will need a procedure or surgery. This can treat an enlarged prostate, or remove a kidney stone or other blockage. Surgery may also treat problems caused by scarring or long-term infections. 6963-5533 [employer]. [address] [place] [address], [place] [address]. All rights reserved. This information is not intended as a substitute for professional medical care. Always follow yourhealthcare professional's instructions. Bladder Infection, Male (Adult) You have a bladder infection. Urine is normally free of bacteria. But bacteria can get into the urinary tract from the skin around the rectum or it may travel in the blood from elsewhere in the body. This is called a urinary tract infection (UTI). An infection can occur anywhere in the urinary tract. It could be in a kidney (pyelonephritis)or in the bladder (cystitis) and urethra (urethritis). The urethra is the tube that drains the urine from the bladder through the tip of the penis. The most common place for a UTI is in the bladder. This is called a bladder infection. Most bladderinfections are easily treated. They are not serious unless the infection spreads up to the kidney. The terms bladder infection, UTI, and cystitis are often used to describe the same thing, but they aren t always the same. Cystitis is an inflammation of the bladder. The most common cause of cystitis is an infection. Keep in mind: Infections in the urine are called UTIs. Cystitis is usually caused by a UTI. Not all UTIs and cases of cystitis are bladder infections. Bladder infections are the most common type of cystitis. Symptoms of a bladder infection The infection causes inflammation in the urethra and bladder. This inflammation causes many of the symptoms. The most common symptoms of a bladder infection are: Pain or burning when urinating Having to go more often than usual Feeling like you need to go right away Only a small amount comes out Blood in urine Discomfort in your belly (abdomen), usually in the lower abdomen, above the pubic bone Cloudy, strong, or bad smelling urine Unable to urinate (retention) Urinary incontinence Fever Loss of appetite Older adults may also feel confused. Causes of a bladder infection Bladder infections are not contagious. You can't get one from someone else, from a toilet seat, or from sharing a bath. The most common cause of bladder infections is bacteria from the bowels. The bacteria get onto the skin around the opening of the urethra. From there they can get into the urine and travel up to the bladder. This causes inflammation and an infection. This usually happens because of: An enlarged prostate Poor cleaning of the genitals Procedures that put a tube in your bladder, like a Hernandez catheter Bowel incontinence Older age Not emptying your bladder (The urine stays there, giving the bacteria a chance to grow.) Dehydration (This allows urine to stay in the bladder longer.) Constipation (This can cause the bowels to push on the bladder or urethra and keep the bladder fromemptying.) Treatment Bladder infections are treated with antibiotics. They usually clear up quickly without complications. Treatment helps prevent a more serious kidney infection. Medicines Medicines can help in the treatment of a bladder infection: You may have been given phenazopyridine to ease burning when you urinate. It will cause your urine to be bright orange. It can stain clothing. You may have been prescribed antibiotics. Take this medicine until you have finished it, even if you feel better. Taking all of the medicine will make sure the infection has cleared. You can use acetaminophen or ibuprofen for pain, fever, or discomfort, unless another medicine was prescribed. You can also alternate them, or use both together. They work differently and are a different class of medicines, so taking them together is not an overdose. If you have chronic liver or kidney disease, talk with your healthcare provider before using these medicines. Also talk with your provider if you ve had a stomach ulcer or GI bleeding or are taking blood thinner medicines. Home care Here are some guidelines to help you care for yourself at home: Drink plenty of fluids, unless your healthcare provider told you not to. Fluids will prevent dehydration and flush out your bladder. Use good personal hygiene. Wipe from front to back after using the toilet, and clean your penis regularly. If you aren t circumcised, retract the foreskin when cleaning. Urinate more frequently, and don t try to hold it in for long periods of time, if possible. Wear loose-fitting clothes and cotton underwear. Avoid tight-fitting pants. This helps keep you clean and dry. Change your diet to prevent constipation. This means eating more fresh foods and more fiber, and less junk and fatty foods. Avoid sex until your symptoms are gone. Avoid caffeine, alcohol, and spicy foods. These can irritate the bladder. Follow-up care Follow up with your healthcare provider, or as advised if all symptoms have not cleared up within 5days. It is important to keep your follow-up appointment. You can talk with your provider to see ifyou need more tests of the urinary tract. This is especially important if you have infections that keep coming back. If a culture was done, you will be told if your treatment needs to be changed. If directed, you cancall to find out the results. If X-rays were taken, you will be told of any findings that may affect your care. Call 911 Call 911 if any of these occur: Trouble breathing Difficulty waking up Feeling confused Fainting or loss of consciousness Rapid heart rate When to seek medical advice Call your healthcare provider right away if any of these occur: Fever of 100.4 F (38 C) or higher, or as directed by your healthcare provider Your symptoms don t improve after 2 days of treatment Back or abdominal pain that gets worse Repeated vomiting, or you aren t able to keep medicine down Weakness or dizziness 1561-1635 [employer]. [address] [place] [address]. All rights reserved. This information is not intended as a substitute for professional medical care. Always follow yourhealthcare professional's instructions. Additional Information VACCINATE! IT SAVES LIVES! Members of the community who have not yet received the COVID-19 vaccine and would like to receive it can visit one of [facility] vaccine clinics. There are many vaccine clinic locations within the [facility]. For locations and available times, please visit [email or web address] It is important to note that some COVID mobile vaccine clinics are held outdoors and may be canceled in rainy or stormy conditions. To learn more about pediatric vaccinations (ages 5-11), we invite you to visit the [facility] webpage. [email or web address] learn more about the COVID-19 vaccine, we invite you to visit the CDC website for a list of frequently asked questions. https://www.cdc.gov/coronavirus/2019-ncov/vaccines/faq.html [facility] Patient Portal Access Instructions: Stay connected with your healthcare team and access your personal medical information anytime with the [facility] Patient Portal. If you would like a full copy of your medical records please contact the [facility] Medical Records Department Sunday through Sunday between 8a.m. and 4:30p.m. Please follow the directions below to access the portal: 1.Access the email account you provided upon registration to the hospital.2.Look for an invitation email from [facility].3.Open the email and access the invitation link: Accept Invitation to [facility]4.Fill in the required nguyen to create your account. Sign into [email or web address] with your username and password that you created in the above steps to stay up to date. You can then view a summary of results, a summary of your visits, and the ability to download your summaries to your computer or send the information securely to a physician. Remember that your healthcare information is confidential, so carefully consider who you will allow to register on the [facility] Patient Portal for access to your information. You can also access the [facility] Patient Portal on the [employer] artemio. Simply click on Health Records under [employer] and then click on the [facility] logo. HOW TO SAFELY DISPOSE OF PRESCRIPTION MEDICATIONS Please use one of the following methods to safely dispose of your unused medications. 1.Use a drug disposal kit: the drug disposal pouch allows you to safely discard your old and unuseddrugs. Ask your nurse to give you one when you are discharged.2.Visit a local take-back location: Many local pharmacies and police departments have programs that collect old and unwanted prescriptiondrugs. Call your local pharmacy or go to http://[place] [employer]/9Z9Hb5d to find one close to you.3.Make use of household items: Use cat litter or old coffee grounds to dispose medications if other options arenot available. Mix your drugs with these household products, seal them in an airtight container andthrow it into the garbage. Call [facility]: [phone] to be sure your drugs can be disposed of in this way. Some medicines may require a different approach.4.Never flush your medications down the toilet. IF YOU HAVE BEEN PRESCRIBED AN OPIOIDS FOR PAIN If you have been prescribed an opioid (such as hydrocodone, oxycodone or morphine), it is critical to understand the possible side effects and risks of opioid pain medications. Even when taken as directed, opioids can have several side effects including: Tolerance, meaning you might need to take more of a medication for the same pain relief. Nausea, vomiting and/or constipation. Sleepiness, dizziness, dry mouth, confusion, depression or itching. Physical dependence, meaning you have withdrawal symptoms when a medication is stopped ? this can develop within a few days. KNOW YOUR RESPONSIBILITIES It is important to know exactly how much and how often to take the opioid pain medications you are prescribed. Never take opioids in higher amounts or more often than prescribed. Do not combine opioids with alcohol or other drugs that cause drowsiness, such as benzodiazepines, also known as benzos,including diazepam and alprazolam, muscle relaxants or sleep aids. Never sell or share prescriptionopioids. This is illegal. Store opioids in a secure place and out of reach of others (including children, family, friends and visitors). The last page(s) of this document has been signed and retained as a CHART COPY Signatures Patient Education Materials Urinary Tract Infections in Men Bladder Infection, Male (Adult) Medication Leaflets My discharge plan and instructions have been reviewed and explained to me and I,GURINDER HAHN understand my current condition and have read and understand these discharge instructions. I have received a written copy of the plan/instructions. If I have questions, I am aware that I should contact my doctor. Patient/Care Management Associate Signature: Date/Time: Relationship to Patient: Witness Name/Signature: Date/Time: [facility]08-19-2023 Note ORIGINAL EXAMINATION: CT OF THE ABDOMEN AND PELVIS WITHOUT CONTRAST 07/07/2023 7:36 pm TECHNIQUE: CT of the abdomen and pelvis was performed without the administration of intravenous contrast. Multiplanar reformatted images are provided for review. Automated exposure control, iterative reconstruction, and/or weight based adjustment of the mA/kV was utilized to reduce the radiation dose to as low as reasonably achievable. COMPARISON: None. HISTORY: ORDERING SYSTEM PROVIDED HISTORY: Reason for Exam: kidney stone FINDINGS: Lower Chest: No focal consolidation. Organs: Suggested hepatic steatosis. Small layering gallstones. The spleen, pancreas and adrenal glands are unremarkable. Nonspecific perinephric edema. No hydronephrosis or hydroureter. Bilateral perineural fat stranding. GI/Bowel: No bowel obstruction, pneumoperitoneum, or ascites. Nondilated appendix. Pelvis: Bladder wall thickening with perivesicular edema. Normal size prostate. Peritoneum/Retroperitoneum: Nonaneurysmal abdominal aorta. Subcentimeter iliac chain and retroperitoneal lymph nodes, nonspecific. Bones/Soft Tissues: Degenerative changes of the spine and hips. IMPRESSION: Bladder wall thickening with perivesicular haziness, bilateral periureteral fat stranding and bilateral perinephric fat stranding. Findings are concerning for ascending urinary tract infection although correlate clinically and with urinalysis. Interpreted by: Daniel Leal Preliminary Report By: Daniel Leal Electronically signed By Daniel Leal Dictated Date: 07/07/2023 7:42:00 PM Prelim Date: 07/07/2023 7:45:31 PM Sign Date: 07/07/2023 7:45:31 PM Ordering Provider: [facility]08-19-2023 Evaluation + Plan note Diagnostic Tests Pending * Chlamydia trachomatis PCR 07/07/23 * N. gonorrhoeae PCR 07/07/23 * Urine Culture 07/07/23 [facility] 08-17-2023 Telephone encounter Note* Telephone Encounter - Rae Hernandez MA - 07/05/2023 2:37 PM EDT Prescription Request: Last medication check: 04/05/23 Last physical exam: 06/22/21 Next scheduled appointment: none Last date of refill on this medication 06/06/23 3mL 1 [facility]ill [id number] Miscellaneous Notes* Telephone Encounter - Rae Hernandez MA - 07/05/2023 2:37 PM EDT Prescription Request: Last medication check: 04/05/23 Last physical exam: 06/22/21 Next scheduled appointment: none Last date of refill on this medication 06/06/23 3mL 1 refill documented in this [facility]08-15-2023 Telephone encounter Note* Telephone Encounter - MOIRA Peralta CNP - 07/03/2023 5:05 PM EDT [address] you Dr. Jackson. [id number] Miscellaneous Notes* Telephone Encounter - MOIRA Peralta CNP - 07/03/2023 5:[address] Jackson. * Telephone Encounter - Artie Jackson MD - 07/03/2023 9:43 AM EDT Order signed * Telephone Encounter - Rae Hernandez MA - 07/03/2023 8:54 AM EDT Patient came in for UA due to symptoms of UTI. It is positive for moderate WBC's, large blood, 2,000+ glucose, large protein. Please sign order for culture. documented in this [place] [id number] Telephone encounter Note* Telephone Encounter - Lorenza Parada MA - 07/03/2023 11:52 AM EDT Message released to patient as written. Patient's further questions if applicable: no Were all questions from office addressed or relayed to the patient from encounter: Yes [id number] Miscellaneous Notes* Telephone Encounter - Lorenza Parada MA - 07/03/2023 11:52 AM EDT Message released to patient as written. Patient's further questions if applicable: no Were all questions from office addressed or relayed to the patient from encounter: Yes * Telephone Encounter - Kasey Hankins - 07/03/2023 11:41 AM EDT Called patient no answer no VM. Sent mychart message. Results were Seen by proxy Lisset Curiel on 07/03/2023 9:46 AM * Telephone Encounter - Kasey Hankins - 07/03/2023 11:28 AM EDT ----- Message from Artie Jackson MD sent at 07/03/2023 9:46 AM EDT ----- Urine with some blood, lots of protein, moderate amount of leukocytes, and lots of sugar, sent for culture and will treat accordingly. documented in this [facility]SProv[facility] [id number] Telephone encounter Note* Telephone Encounter - Kasey Hankins - 07/03/2023 11:41 AM EDT Called patient no answer no VM. Sent mychart message. Results were Seen by proxy Lisset Curiel on 07/03/2023 9:46 AM [id number] Telephone encounter Note* Telephone Encounter - Kasey Hankins - 07/03/2023 11:28 AM EDT ----- Message from Artie Jackson MD sent at 07/03/2023 9:46 AM EDT ----- Urine with some blood, lots of protein, moderate amount of leukocytes, and lots of sugar, sent for culture and will treat accordingly. [facility] [id number] Telephone encounter Note* Telephone Encounter - Artie Jackson MD - 07/03/2023 9:43 AM EDT Order signed [id number] Telephone encounter Note* Telephone Encounter - Rae Hernandez MA - 07/03/2023 8:54 AM EDT Patient came in for UA due to symptoms of UTI. It is positive for moderate WBC's, large blood, 2,000+ glucose, large protein. Please sign order for culture. [facility] [id number] Telephone encounter Note* Telephone Encounter - MOIRA Peralta CNP - 05/18/2023 12:56 PM EDT Noted. [facility] [id number] Miscellaneous Notes* Telephone Encounter - MOIRA Peralta CNP - 05/18/2023 12:56 PM EDT Noted. * Telephone Encounter - Vikik Cerna - 05/18/2023 12:32 PM EDT Name of caller: Isai Contact phone number: [phone] Relationship to Patient: patient Provider: Dr Jackson Practice: [facility] Chief Complaint/Reason for Call: Pt returned call about Januvia and stated he is completely out. I reached out to the pharmacy and was advised the pt picked up a 90 day supply 04/02 and should have enough to get to June. I also offered to schedule the June appt and pt stated he would need to call back to schedule. I returned call to pt and left a detailed message with previous permission regarding this. Please advise. Best time of day caller can be reached: any Patient advised that office/PCP has 24-48 business hours to return their call: No documented in this encounterSProvidence [id number] Telephone encounter Note* Telephone Encounter - Vikki Cerna - 05/18/2023 12:32 PM EDT Name of caller: Isai Contact phone number: [phone] Relationship to Patient: patient Provider: Dr Jackson Practice: [facility] Chief Complaint/Reason for Call: Pt returned call about Januvia and stated he is completely out. I reached out to the pharmacy and was advised the pt picked up a 90 day supply 04/02 and should have enough to get to June. I also offered to schedule the June appt and pt stated he would need to call back to schedule. I returned call to pt and left a detailed message with previous permission regarding this. Please advise. Best time of day caller can be reached: any Patient advised that office/PCP has 24-48 business hours to return their call: No [facility] [id number] Telephone encounter Note* Telephone Encounter - MOIRA Samuels CNP - 05/14/2023 12:45 PM EDT Reviewed chart. Refill appropriate. RX sent. [facility] [id number] Miscellaneous Notes* Telephone Encounter - MOIRA Samuels CNP - 05/14/2023 12:45 PM EDT Reviewed chart. Refill appropriate. RX sent. * Telephone Encounter - Yadira Uribe MA - 05/14/2023 11:10 AM EDT Prescription Request: Last medication check: 04/05/23 Last physical exam: 06/22/21 Next scheduled appointment: none Last date of refill on this medication 04/13/23 documented in this [facility]06-26-2023 Telephone encounter Note* Telephone Encounter - Yadira Uribe MA - 05/14/2023 11:10 AM EDT Prescription Request: Last medication check: 04/05/23 Last physical exam: 06/22/21 Next scheduled appointment: none Last date of refill on this medication 04/13/23 [facility] [id number] History of Present illness Narrative* MOIRA Samuels CNP - 05/09/2023 7:26 AM EDT eGFR 22, STOP metformin and fenofibrate as contraindicated documented in this [facility]06-19-2023 Telephone encounter Note* Telephone Encounter - MOIRA Samuels CNP - 05/07/2023 10:17 AM EDT Reviewed chart. Refill appropriate. RX sent. [facility] [id number] Miscellaneous Notes* Telephone Encounter - MOIRA Samuels CNP - 05/07/2023 10:17 AM EDT Reviewed chart. Refill appropriate. RX sent. * Telephone Encounter - Miguelina Ashford MA - 05/07/2023 9:51 AM EDT Prescription Request: Last medication check: 04/05/23 Last physical exam: 06/22/21 Next scheduled appointment: none Last date of refill on this medication 11/14/22 90 day 1 refill documented in this [facility]06-19-2023 Telephone encounter Note* Telephone Encounter - Miguelina Ashford MA - 05/07/2023 9:51 AM EDT Prescription Request: Last medication check: 04/05/23 Last physical exam: 06/22/21 Next scheduled appointment: none Last date of refill on this medication 11/14/22 90 day 1 [id number]phone [facility] Note* Telephone Encounter - Yadira Uribe MA - 04/20/2023 9:59 AM EDT Prescription Request: Last medication check: 04-05-23 Last physical exam: 06-22-21 Next scheduled appointment: 05-03-23 Last date of refill on this medication 01/08/2023 [id number] Miscellaneous Notes* Telephone Encounter - Yadira Uribe MA - 04/20/2023 9:59 AM EDT Prescription Request: Last medication check: 04-05-23 Last physical exam: 06-22-21 Next scheduled appointment: 05-03-23 Last date of refill on this medication 01/08/2023 documented in this [facility]05-19-2023 Telephone encounter Note* Telephone Encounter - Rae Hernandez MA - 04/06/2023 10:58 AM EDT Patient notified and voiced understanding, will have girlfriend my chart his levels over every 3 days and get scheduled with nephrology. He is scheduled in 4 weeks for labs to recheck potassium. Please place order. [id number] Telephone encounter Note* Telephone Encounter - Rae Hernandez MA - 04/06/2023 10:58 AM EDT ----- Message from MOIRA Samuels CNP sent at 04/06/2023 10:47 AM EDT ----- Hemoglobin a1c better (awesome), but still high. Continue consistently taking medications and insulin. Low fat, low carb diet. Send glucose readings to office every 3 days so we can adjust insulin dose. BMP- elevated glucose. Kidney function decreased. Potassium is high- recommend decreasing potassiumin diet- get scheduled with nephrology. We will need to recheck potassium level in 4 weeks. [id number] Miscellaneous Notes* Telephone Encounter - Rae Hernandez MA - 04/06/2023 10:58 AM EDT Patient notified and voiced understanding, will have girlfriend my chart his levels over every 3 days and get scheduled with nephrology. He is scheduled in 4 weeks for labs to recheck potassium. Please place order. * Telephone Encounter - Rae Hernandez MA - 04/06/2023 10:58 AM EDT ----- Message from MOIRA Samuels CNP sent at 04/06/2023 10:47 AM EDT ----- Hemoglobin a1c better (awesome), but still high. Continue consistently taking medications and insulin. Low fat, low carb diet. Send glucose readings to office every 3 days so we can adjust insulin dose. BMP- elevated glucose. Kidney function decreased. Potassium is high- recommend decreasing potassiumin diet- get scheduled with nephrology. We will need to recheck potassium level in 4 weeks. documented in this [facility]05-02-2023 Miscellaneous Notes* Telephone Encounter - Rae Hernandez MA - 03/20/2023 9:50 AM EDT Prescription Request: Last medication check: 01/08/23 Last physical exam: 06/22/21 Next scheduled appointment: 04/06/23 Last date of refill on this medication 09/21/22 30 days 5 refills documented in this [facility]05-02-2023 Telephone encounter Note* Telephone Encounter - Rae Hernandez MA - 03/20/2023 9:50 AM EDT Prescription Request: Last medication check: 01/08/23 Last physical exam: 06/22/21 Next scheduled appointment: 04/06/23 Last date of refill on this medication 09/21/22 30 days 5 [facility]ills [id number] Telephone encounter Note* Telephone Encounter - MOIRA Peralta CNP - 03/19/2023 4:26 PM EDT Rx sent. Follow up as scheduled. [id number] Miscellaneous Notes* Telephone Encounter - MOIRA Peralta CNP - 03/19/2023 4:26 PM EDT Rx sent. Follow up as scheduled. * Telephone Encounter - Rae Hernandez MA - 03/19/2023 4:09 PM EDT Prescription Request: Last medication check: 01/08/23 Last physical exam: 06/22/21 Next scheduled appointment: 04/06/23 Last date of refill on this medication 01/01/23 120 pads documented in this [facility]05-01-2023 Telephone encounter Note* Telephone Encounter - Rae Hernandez MA - 03/19/2023 4:09 PM EDT Prescription Request: Last medication check: 01/08/23 Last physical exam: 06/22/21 Next scheduled appointment: 04/06/23 Last date of refill on this medication 01/01/23 120 pads [id number] Telephone encounter Note* Telephone Encounter - Miguelina Ashford MA - 01/23/2023 6:53 AM EST Prescription Request: Last medication check: 01/08/23 Last physical exam: 06/22/21 Next scheduled appointment: 04/06/23 CSA on file (date): na Last urine drug screen: na Last date of refill on this medication 01/08/23 3ml 1 [facility]ill [id number] Miscellaneous Notes* Telephone Encounter - Miguelina Ashford MA - 01/23/2023 6:53 AM EST Prescription Request: Last medication check: 01/08/23 Last physical exam: 06/22/21 Next scheduled appointment: 04/06/23 CSA on file (date): na Last urine drug screen: na Last date of refill on this medication 01/08/23 3ml 1 refill documented in this [facility]03-06-2023 Telephone encounter Note* Telephone Encounter - MOIRA Peralta CNP - 01/22/2023 2:27 PM EST Rx sent. Follow up as scheduled. [id number] Miscellaneous Notes* Telephone Encounter - MOIRA Peralta CNP - 01/22/2023 2:27 PM EST Rx sent. Follow up as scheduled. * Telephone Encounter - Miguelina Ashford MA - 01/22/2023 7:09 AM EST Prescription Request: Last medication check: 01/08/23 Last physical exam: 06/22/21 Next scheduled appointment: 04/06/23 CSA on file (date): na Last urine drug screen: na Last date of refill on this medication: 08/28/22 30 day no refill documented in this [facility]03-06-2023 Telephone encounter Note* Telephone Encounter - Montserrat Ramos - 01/22/2023 1:43 PM EST Message released to patient as written. Called Mamie Stack a message to return call. Please let him know that we referred him to a retina specialist, their phone number is [phone]. Dr. Mccarthy reviewed his chart and would like him to see them first due to the severity of his diabetes, she thinks she would just end up referring him there anyhow. Patient's further questions if applicable: No Were all questions from office addressed or relayed to the patient from encounter: Yes [place] [id number] Miscellaneous Notes* Telephone Encounter - Montserrat Ramos - 01/22/2023 1:43 PM EST Message released to patient as written. Called Gurinder, Left a message to return call. Please let him know that we referred him to a retina specialist, their phone number is [phone]. Dr. Mccarthy reviewed his chart and would like him to see them first due to the severity of his diabetes, she thinks she would just end up referring him there anyhow. Patient's further questions if applicable: No Were all questions from office addressed or relayed to the patient from encounter: Yes * Telephone Encounter - Yadira Uribe MA - 01/22/2023 1:24 PM EST Called Gurinder, Left a message to return call. Please let him know that we referred him to a retina specialist, their phone number is [phone]. Dr. Mccarthy reviewed his chart and would like him to see them first due to the severity of his diabetes, she thinks she would just end up referring him there anyhow. * Telephone Encounter - MOIRA Peralta CNP - 01/22/2023 1:18 PM EST Noted. Thank you for clarifying. New referral placed. Please notify Gurinder. [facility] [address] [facility] [address] (FAX) * Telephone Encounter - Yadira Uribe MA - 01/22/2023 1:09 PM EST Called them back, Dr. Mccarthy reviewed his chart and said due to the severity of his Diabetes she would rather he go straight to a retina specialist instead of seeing her first. They recommended [facility]-they have an office on [address], phone number is [phone]. * Telephone Encounter - MOIRA Peralta CNP - 01/22/2023 12:30 PM EST Do we know why? Is his insurance not covered there? * Telephone Encounter - Montserrat Ramos - 01/22/2023 10:06 AM EST Name of caller: [facility]. Contact phone number: [phone] Relationship to Patient: [facility]. Provider: Phoebe URENA Practice: [facility] Chief Complaint/Reason for Call: [facility], [facility]. Calling an states that the patient willhave to see another provider. They wanted to inform Phoebe URENA, about this. Please advise. Best time of day caller can be reached: any Patient advised that office/PCP has 24-48 business hours to return their call: N/A documented in this [facility] [id number] Telephone encounter Note* Telephone Encounter - Yadira Uribe MA - 01/22/2023 1:24 PM EST Called Mamie Stack a message to return call. Please let him know that we referred him to a retina specialist, their phone number is [phone]. Dr. Mccarthy reviewed his chart and would like him to see them first due to the severity of his diabetes, she thinks she would just end up referring him there anyhow. [id number] Telephone encounter Note* Telephone Encounter - MOIRA Peralta CNP - 01/22/2023 1:18 PM EST Noted. Thank you for clarifying. New referral placed. Please notify Gurinder. [facility] [place] [address] [facility] [id number] (FAX) [id number] Telephone encounter Note* Telephone Encounter - Yadira Uribe MA - 01/22/2023 1:09 PM EST Called them back, Dr. Mccarthy reviewed his chart and said due to the severity of his Diabetes she would rather he go straight to a retina specialist instead of seeing her first. They recommended [facility]-they have an office on [address], phone number is [phone]. [facility] [id number] Telephone encounter Note* Telephone Encounter - MOIRA Peralta CNP - 01/22/2023 12:30 PM EST Do we know why? Is his insurance not covered there? [id number] Telephone encounter Note* Telephone Encounter - Montserrat Ramos - 01/22/2023 10:06 AM EST Name of caller: [facility] Contact phone number: [phone] Relationship to Patient: [facility] Provider: Phoebe URENA Practice: [facility] Chief Complaint/Reason for Call: [facility] Calling an states that the patient willhave to see another provider. They wanted to inform Phoebe URENA, about this. Please advise. Best time of day caller can be reached: any Patient advised that office/PCP has 24-48 business hours to return their call: N/A [place] [id number] Telephone encounter Note* Telephone Encounter - Miguelina Ashford MA - 01/22/2023 7:09 AM EST Prescription Request: Last medication check: 01/08/23 Last physical exam: 06/22/21 Next scheduled appointment: 04/06/23 CSA on file (date): na Last urine drug screen: na Last date of refill on this medication: 08/28/22 30 day no refill [id number] Telephone encounter Note* Telephone Encounter - MOIRA Peralta CNP - 01/08/2023 11:37 AM EST Rx sent. [id number] Miscellaneous Notes* Telephone Encounter - MOIRA Peralta CNP - 01/08/2023 11:37 AM EST Rx sent. * Telephone Encounter - Miguelina Ashford MA - 01/08/2023 9:49 AM EST Prescription Request: Last medication check: 01/08/23 Last physical exam: 06/22/21 Next scheduled appointment: 01/08/23 CSA on file (date): na Last urine drug screen: na Last date of refill on this medication 10/02/22 100 strips 1 refill documented in this encounterSProvidence [id number] History of Present illness Narrative* MOIRA Peralta CNP - 01/08/2023 10:00 AM EST Images from the original note were not included. [place] [address] [address] Dept: [phone] Dept Loc: [phone] HPI: Gurinder Hahn is a 47 y.o. male who presents today for his medical conditions/complaints asnoted below. Gurinder Hahn is c/o of Annual Exam and Health Maintenance (Hep C--declines, HIV--declines, Colon--declines, DM eye--has not had, Dental--has not been, Hep B--declines, COVID--declines, MMR--has had as a kid, Pneumo--declines, Flu--declines) HPI- Gurinder presents today for his annual physical and blood work. Diabetes Mellitus Type II: Current symptoms/problems include hyperglycemia and have been unchanged.Symptoms have been present for several years. Most recent hemoglobin A1C was 12.7% on 05/09/22. Known diabetic complications: nephropathy and peripheral neuropathy- continues to take Gabapentin for his neuropathy and has never followed up with nephrology for his kidney function- has had multiple referrals but never schedules an appointment. Does not feel like the neuropathy is as well controlled. Would like to try a higher dose of the Gabapentin. Symptoms remain poorly controlled at night. Cardiovascular risk factors: diabetes mellitus, dyslipidemia, hypertension, male gender, microalbuminuria, obesity (BMI >= 30 kg/m2), sedentary lifestyle, and smoking/ tobacco exposure Current diabetic medications include Metformin, Glimepiride, Januvia, Lantus - has not been taking his Lantus consistently. Eye exam current (within one year): No - reminded to scheduled (will place referral today with Dr. Rae Patel in [place]) Dental exam current (within one year): No - reminded to schedule Weight trend: stable Prior visit with plant propagator: No Current diet: in general, an unhealthy diet Current exercise: none Current monitoring regimen: home blood tests - daily Home blood sugar records: states he averages 200's Any episodes of hypoglycemia? No Is He on FLORINDA inhibitor or angiotensin II receptor huyen? Yes lisinopril (generic)- blood pressure is stable today at 120/76 Currently on statin therapy? Yes - Rosuvastatin Last urine microalbumin was 974.5 mg/L on 12/07/21. Last foot exam was 11/28/21. GERD: Has been taking his daily Omeprazole. Feels symptoms are stable. Health Maintenance: Declines to be vaccinated for Hep B. Declines screening for HIV and Hep C. Declines a colonoscopy for colon cancer screening and all other forms of screening at this time. Declines a COVID-19 vaccination. States he was vaccinated for MMR as a child. Declines a pneumococcal vaccination. Declines a flu vaccination. Tdap current: 08/17/18. See ROS for additional information. Past Medical History: Diagnosis Date Acute vomiting 05/26/2021 GERD (gastroesophageal reflux disease) Gout Hyperglycemia Hyperlipidemia Hypertension Osteoarthritis Type 2 diabetes mellitus without complication (CMS/HCC) (HCC) UTI symptoms 01/13/2021 Weight loss 07/17/2022 Past Surgical History: Procedure Laterality Date CYST REMOVAL sebacious cyst rmoved TESTICLE SURGERY TOE AMPUTATION Right 05/14/2020 Partial amputation 2nd toe TOE AMPUTATION Right 11/15/2020 right 3rd toe TOE SURGERY Left tip of second toe removed (done under local anesthesia per Dr. Arredondo) WISDOM TOOTH EXTRACTION Family History Problem Relation Name Age of Onset High Blood Pressure Father No Known Problems Mother Heart disease Father COPD Father Diabetes Father Social History Tobacco Use Smoking status: Every Day Packs/day: 1.00 Types: Cigarettes Start date: 12/12/1989 Smokeless tobacco: Current Substance Use Topics Alcohol use: Yes Current Outpatient Medications Medication Sig Dispense Refill B-D UF III MINI PEN NEEDLES 31G X 5 MM misc use daily as directed fenofibrate (Tricor) 145 MG tablet take 1 tablet by mouth once daily 90 tablet 0 glimepiride (Amaryl) 4 MG tablet Take 2 tablets (8 mg) by mouth every morning (before breakfast). 180 tablet 1 lisinopril 20 MG tablet take 1 tablet by mouth once daily 30 tablet 5 metFORMIN XR (Glucophage-XR) 500 MG 24 hr tablet take 2 tablets by mouth twice a day 120 tablet 1 omeprazole (PriLOSEC) [address] capsule Take 40 mg by mouth in the morning and 40 mg in the evening. RA Alcohol Swabs 70 % pads use three times a day as directed Strength: 70 % 120 each 0 triamterene-hydrochlorothiazide (Maxzide-25) 37.5-25 MG tablet Take 1 tablet by mouth daily. True Metrix Blood Glucose Test test strip use 1 TEST STRIP to TEST BLOOD SUGAR twice a day 100 strip 1 gabapentin (Neurontin) 300 MG capsule Take 1 capsule (300 mg) by mouth every evening. 30 capsule 0 Januvia 50 MG tablet Take 1 tablet (50 mg) by mouth daily. 90 tablet 1 Lantus SoloStar 100 UNIT/ML pen inject 12 units subcutaneously every morning and 14 units EVERY EVENING Strength: 100 UNIT/ML 3 mL 1 rosuvastatin (Crestor) 10 MG tablet Take 1 tablet (10 mg) by mouth daily. 90 tablet 1 No current facility-administered medications for this visit. Allergies Allergen Reactions Ampicillin Penicillins Rash Health Maintenance Topic Date Due Colorectal Cancer Screening Never done Diabetes: Retinopathy Screening Never done Diabetes: Dental Exam Never done Lipid Panel 06/22/2022 Diabetes: Hemoglobin A1C 08/09/2022 Diabetes: Urine Protein Screening 12/07/2022 Influenza Vaccine (1) 05/18/2023 (Originally 07/20/2022) Pneumococcal Vaccine: Pediatrics (0 to 5 Years) and At-Risk Patients (6 to 64 Years) (1 - PCV) 01/08/2024 (Originally 1983) HIV Screening 01/08/2024 (Originally 1977) Hepatitis C Screening 01/08/2024 (Originally 1995) COVID-19 Vaccine (1) 01/08/2024 (Originally 1977) Diabetes: Foot Exam 01/08/2024 Zoster Vaccines (1 of 2) 2027 DTaP/Tdap/Td Vaccines (2 - Td or Tdap) 08/17/2028 MMR Vaccines Completed HIB Vaccines Aged Out IPV Vaccines Aged Out Hepatitis A Vaccines Aged Out Meningococcal Vaccine Aged Out Rotavirus Vaccines Aged Out HPV Vaccines Aged Out Hepatitis B Vaccines Discontinued Subjective: Review of Systems Constitutional: Negative for chills and fever. HENT: Negative for hearing loss and trouble swallowing. Eyes: Negative for pain and visual disturbance. Respiratory: Negative for cough, chest tightness, shortness of breath and wheezing. Cardiovascular: Negative for chest pain, palpitations and leg swelling. Gastrointestinal: Negative for abdominal distention, blood in stool, constipation and diarrhea. Endocrine: Negative for polydipsia, polyphagia and polyuria. Genitourinary: Negative for difficulty urinating, dysuria and hematuria. Musculoskeletal: Negative for arthralgias and myalgias. Skin: Negative for color change, pallor, rash and wound. Neurological: Negative for dizziness, syncope, weakness and headaches. Hematological: Does not bruise/bleed easily. Psychiatric/Behavioral: Negative for dysphoric mood. The patient is not nervous/anxious. Objective: BP 120/76 Pulse 80 Ht 6' 2 (1.88 m) Wt 299 lb (136 kg) SpO2 95% BMI 38.39 kg/m Physical Exam Constitutional: Oriented to person, place, and time. Appears well-developed and well-nourished. No distress. HENT: Head: Normocephalic and atraumatic. Right Ear: External ear normal. Left Ear: External ear normal. Nose: Nose normal. Mouth/Throat: Oropharynx is clear and moist. No oropharyngeal exudate. Bilateral TM's pearly clay with a good cone of light bilaterally. Eyes: Conjunctivae and EOM are normal. Pupils are equal, round, and reactive to light. Right eye exhibits no discharge. Left eye exhibits no discharge. Neck: Normal range of motion. Neck supple. No thyromegaly present. Cardiovascular: Normal rate, regular rhythm, normal heart sounds and intact distal pulses. Exam reveals no friction rub. No murmur heard. Carotid upstrokes brisk and without bruits bilaterally. Pulmonary/Chest: Effort normal and breath sounds normal. No respiratory distress. No wheezes. No rales. Abdominal: Soft. Bowel sounds are normal. No distension and no mass. There is no hepatosplenomegaly. There is no tenderness. Protuberant abdomen impairing examination. Genitourinary: Declines a MARIBEL. Musculoskeletal: Normal range of motion. No edema, tenderness or deformity. Strength 5/5 with flexion and extension of extremities x4. Lymphadenopathy: No cervical adenopathy. Neurological: Alert and oriented to person, place, and time. Coordination normal. Skin: Skin is warm and dry. No rash noted. No erythema. No pallor. Diabetic foot check: Normal strength and range of motion of toes, feet, and ankles bilaterally. No joint deformity. No cyanosis or clubbing. Decreased sensation with the 10 gram filament. Dorsalis pedis pulses intact bilaterally. Capillary refill at the toes was less than 2 seconds. Hair growth present on feet and toes bilaterally. No skin breakdown, erythema, rub spots, blisters, scaling, or ulcers. No calluses or corns. Toenails were yellow, crumbly and thickened with nail debris under all ten digits. Psychiatric: Normal mood and affect. Behavior is normal. Judgment and thought content normal. PHQ-2 negative. Assessment and Plan: 1. Type 2 diabetes mellitus with diabetic polyneuropathy, with long-term current use of insulin ([facility] ([facility]) - CBC - Comprehensive metabolic panel - Hemoglobin A1c - Microalbumin / creatinine urine ratio - Diabetes Foot Exam - Januvia 50 MG tablet; Take 1 tablet (50 mg) by mouth daily., Starting Sun01/08/2023, Normal - Lantus SoloStar 100 UNIT/ML pen; inject 12 units subcutaneously every morning and 14 units EVERY EVENING Strength: 100 UNIT/ML, Normal - External referral to Ophthalmology - gabapentin (Neurontin) 300 MG capsule; Take 1 capsule (300 mg) by mouth every evening., Starting Sun01/08/2023, Normal - Poorly controlled. Stressed the importance of taking medications consistently as prescribed and eating a healthy diet low in carbohydrates and sugar. Encouraged regular exercise. Will increase Gabapentin to 300 mg daily. Rx sent for new dose. OARRS report reviewed with no discrepancies. CSA signed today. 2. Diabetic polyneuropathy associated with type 2 diabetes mellitus ([facility] ([facility]) - CBC - Comprehensive metabolic panel - Hemoglobin A1c - Microalbumin / creatinine urine ratio - Diabetes Foot Exam - Januvia 50 MG tablet; Take 1 tablet (50 mg) by mouth daily., Starting Sun01/08/2023, Normal - Lantus SoloStar 100 UNIT/ML pen; inject 12 units subcutaneously every morning and 14 units EVERY EVENING Strength: 100 UNIT/ML, Normal - gabapentin (Neurontin) 300 MG capsule; Take 1 capsule (300 mg) by mouth every evening., Starting Sun01/08/2023, Normal - Poorly controlled. Stressed the importance of taking medications consistently as prescribed and eating a healthy diet low in carbohydrates and sugar. Encouraged regular exercise. Will increase Gabapentin to 300 mg daily. Rx sent for new dose. OARRS report reviewed with no discrepancies. CSA signed today. 3. Diabetes mellitus with proteinuria ([facility]) ([facility]) - CBC - Comprehensive metabolic panel - Hemoglobin A1c - Microalbumin / creatinine urine ratio - Diabetes Foot Exam - Januvia 50 MG tablet; Take 1 tablet (50 mg) by mouth daily., Starting Sun01/08/2023, Normal - Lantus SoloStar 100 UNIT/ML pen; inject 12 units subcutaneously every morning and 14 units EVERY EVENING Strength: 100 UNIT/ML, Normal - Discussed importance of following up with a property utilization manager. Will check levels today and refer accordingly. 4. Encounter for diabetic foot exam (HCC) - Diabetes Foot Exam 5. Essential hypertension - CBC - Comprehensive metabolic panel - Stable with Lisinopril. Will continue current treatment plan. 6. Hyperlipidemia LDL goal <70 - CBC - Comprehensive metabolic panel - Lipid panel - rosuvastatin (Crestor) 10 MG tablet; Take 1 tablet (10 mg) by mouth daily., Starting 01/08/2023, Normal - Stable with Rosuvastatin. Will continue current treatment plan. 7. Cigarette nicotine dependence without complication - CBC - Comprehensive metabolic panel - Encouraged smoking cessation. 8. Class 2 obesity due to excess calories without serious comorbidity with body mass index (BMI) of38.0 to 38.9 in adult - [facility] - Comprehensive metabolic panel - Encouraged a healthy diet and regular exercise. 9. Gastroesophageal reflux disease, unspecified whether esophagitis present - Stable with Omeprazole. Will continue current treatment plan 10. Screening for prostate cancer - PSA Screening - Will notify of blood work results. Gurinder received counseling on the following healthy behaviors: improve dietary compliance Discussed use, benefit, and side effects of prescribed medications. Barriers to medication compliance addressed. All patient questions answered. Pt voiced understanding. Follow Up: Follow up in about 3 months (around 04/07/2023) for diabetes management. Orders Placed This Encounter Procedures CBC Standing Status: Future Number of Occurrences: 1 Standing Expiration Date: 01/08/2024 Comprehensive metabolic panel Standing Status: Future Number of Occurrences: 1 Standing Expiration Date: 01/08/2024 Lipid panel Standing Status: Future Number of Occurrences: 1 Standing Expiration Date: 01/08/2024 PSA Screening Standing Status: Future Number of Occurrences: 1 Standing Expiration Date: 01/08/2024 Hemoglobin A1c Standing Status: Future Number of Occurrences: 1 Standing Expiration Date: 01/08/2024 Microalbumin / creatinine urine ratio Standing Status: Future Number of Occurrences: 1 Standing Expiration Date: 01/08/2024 External referral to Ophthalmology Standing Status: Future Standing Expiration Date: 07/08/2023 Referral Priority: Routine Referral Type: Consultation Referral Reason: Specialty Services Required Referred to Provider: Rae Mccarthy MD Requested Specialty: Ophthalmology Number of Visits Requested: 1 Diabetes Foot Exam Phoebe Adam APRN - [place] 01/08/2023 10:31 AM documented in this [facility]02-20-2023 Telephone encounter Note* Telephone Encounter - Miguelina Ashford MA - 01/08/2023 9:49 AM EST Prescription Request: Last medication check: 01/08/23 Last physical exam: 06/22/21 Next scheduled appointment: 01/08/23 CSA on file (date): na Last urine drug screen: na Last date of refill on this medication 10/02/22 100 strips 1 refill [place] [id number] Telephone encounter Note* Telephone Encounter - MOIRA Peralta CNP - 01/01/2023 12:46 PM EST Rx sent with no refills. Follow up as scheduled. [id number] Miscellaneous Notes* Telephone Encounter - MOIRA Peralta CNP - 01/01/2023 12:46 PM EST Rx sent with no refills. Follow up as scheduled. * Telephone Encounter - Yadira Uribe MA - 01/01/2023 8:13 AM EST Prescription Request: Last medication check: 07/17/22 Last physical exam: 06/22/2021 Next scheduled appointment: none-needs scheduled for physical, called patient, scheduled for next Sunday with Phoebe. Last date of refill on this medication: 05/24/2022 documented in this [address]13-2023 Telephone encounter Note* Telephone Encounter - Yadira Uribe MA - 01/01/2023 8:13 AM EST Prescription Request: Last medication check: 07/17/22 Last physical exam: 06/22/2021 Next scheduled appointment: none-needs scheduled for physical, called patient, scheduled for next Sunday with Phoebe. Last date of refill on this medication: 05/24/2022 [id number] History of Present illness Narrative* Tu Goetz MD - 12/22/2022 2:15 PM EST Images from the original note were not included. [facility] [address] [address] Dept: [phone] Dept Gurinder Raza Jovani 1975 [phone] 12/22/2022 HISTORY OF PRESENT ILLNESS: Gurinder is a 47 y.o. male here today for evaluation of his right foot. He was sent to the office by Dr. Gupta for charcot. He noticed right foot and ankle swelling in June. He states it has notgotten any worse. His last hgb A1c was a 12.7 in April 2022. He states that he is scheduled to have another hemoglobin A1c next week. He was started on insulin in April. He states that since he was diag nosed with Charcot arthropathy of the right foot he has been walking in a regular work boot. He thinks that his swelling has gone down. He has a history significant for partial toe amputations in theright foot in the past as well. Jonynic states the problem has been present for 6 months Gurinder states the problem started gradually with no injuries occurring Gurinder has tried or has been treated with the following: no treatments have been tried. Review of Systems Surgical Risk Factors: Allergies to Metals or Latex: NO Have you been treated for a blood clot: NO Have you had a history of bleeding disorder: NO Have you had a history of Anesthetic problems: NO Do you have tendency to bruise easily: NO Do you experience prolonged or excessive bleeding from cuts or after surgery: NO General/Constitutional: General: no Cancer: NO Acute/Chronic Infections: NO HEENT/Neck: Problems with theThroat: NO Problems with the Eyes: NO Problems with the Ears: NO Problems with the Nose and Sinuses: NO Endocrine: Problems with Diabetes: yes, last A1c 12.7 Problems with Thyroid Disorder: NO Thorax: Problems with the Heart: NO Problems with the Lung: no Cardiovascular: Problems with Circulation: NO Problems with High Blood pressure: NO Gastrointestinal: Problems with Ulcers: NO Problems with the Liver: no Problems with Bowel Habits: NO Genitourinary: Problems with the Genitals: NO Urinary problems: NO Kidney disease or stones: NO Skin: Any general problems: NO Neurologic: Dizziness, blurred vision, headaches, problems with balance : NO Seizures or Stroke: NO Psychiatric: Emotional or Psychological disorders: NO Depression or Anxiety: no PAST MEDICAL HISTORY: Past Medical History: Diagnosis Date Acute vomiting 05/26/2021 GERD (gastroesophageal reflux disease) Gout Hyperglycemia Hyperlipidemia Hypertension Osteoarthritis Type 2 diabetes mellitus without complication (CMS/HCC) (HCC) UTI symptoms 01/13/2021 Allergies Allergen Reactions Penicillins Rash PHYSICAL EXAM: Temp 36.6 C (97.8 F) Ht 6' 2 (1.88 m) Wt 280 lb (127 kg) BMI 35.95 kg/m This is an age appropriate appearing male who is alert and oriented x 3. The patient appears well nourished. The patient is able to verbalize normally and seems to have a good understanding of his situation. Normocephalic and atraumatic. Respiratory: No shortness of breath right lower extremity examination Lymphatic System: Moderate swelling of the ankle, hindfoot, and midfoot Vascular: Dorsalis pedis pulse: 2+ Posterior tibial pulse: 2+ Capillary refill is less than 3 seconds Skin temperature feels equal in the foot/ankle and proximal leg Skin/nails: No erythema present, skin looks normal. Ulcers: No ulcer(s) or skin breakdown present Neurologic: Sensation absent/decreased to light touch throughout the foot and the ankle. Muscle: Muscle strength testing: Anterior tibialis: 5/5 Posterior tibialis: 5/5 Peroneus brevis: 5/5 Peroneus longus: 5/5 Gastrocsoleus: 5/5 Deformity: rocker bottom at the level of the midfoot Gait and Station: [facility] with a limp RADIOGRAPHIC INTERPRETATION: 3 weight bearing views of the right foot were obtained and the following is my interpretation of the findings present of the X-rays: Evidence of resolving Charcot arthropathy of the hindfoot and midfoot. The talus is in plantarflexion. Some prominence of the cuboid is noted on the lateral view witha rocker-bottom deformity being noted. REVIEW OF RELATED PREVIOUS DOCUMENTATION: No documents related to the current problem(s) were reviewed or no documents were available for review. LABORATORY RESULT INTERPRETATION: No labs were reviewed/No labs available for review DIAGNOSIS: Diagnosis Plan 1. Charcot's joint of right foot Diabetic Shoes 2. Type 2 diabetes mellitus with diabetic polyneuropathy, with long-term current use of insulin ([facility]) ([facility]) Diabetic Shoes 3. Diabetic polyneuropathy associated with type 2 diabetes mellitus ([facility]) ([facility]) Diabetic Shoes MEDICAL DECISION MAKING: I had a discussion with Gurinder to make sure he has a good understanding of the diagnoses/issues that I think are present today and understands the plan moving forward. I explained to Gurinder that he has Charcot arthropathy that appears to be resolving. He has good bone growth around the hindfoot and midfoot and his skin is in good condition. Due to diabetes and neuropathy a portion of today's visit was spent discussing daily foot [facility] I explained that Gurinder needs to check his feet daily (using a mirror if needed to see all portions of the feet) and needs to keep the feet well moisturized to prevent skin cracking. he needs to check his shoes regularly to make sure they are in good condition and if any areas of the shoes are breaking down or becoming worn then Gurinder needs to have them checked to see if anew pair is necessary as I explained poor shoe wear can lead to problems with the feet. Gurinderunderstands if he sees any abnormalities such as swelling, redness, skin changes like blisters, calluses or ulcers he needs to get off his feet immediately and call the office. I explained this needs to become routine in terms of checking the feet daily, similar to brushing ones teeth as daily checks can catch problems early prior to more catastrophic problems. Gurinder understands the importance this routine and will call me if there are any questions. I explained to Gurinder that he should be protecting his feet with diabetic inserts. He was given a prescription for diabetic inserts. He understands that if he sees any increase in swelling or redness in the feet or any signs that his skin is breaking down he needs to get off the foot immediately and call for follow-up. Gurinder was comfortable with the plan. No follow-ups on file. Electronically signed by Tu Goetz MD [facility] Department of Orthopedic surgery 12/22/2022 2:57 PM Voice recognition was used for portions of this note and although it was reviewed prior to signing some incorrect words or phrases could be present. documented in this [facility]01-04-2023 Telephone encounter Note* Telephone Encounter - Yadira Uribe MA - 11/22/2022 3:15 PM EST Prescription Request: Last medication check: 05/09/2022 Last physical exam: 06/22/2021 Next scheduled appointment: 12/08/2022 Last date of refill on this medication: 09/21/22 for #120 and 1 [facility]ill [id number] Miscellaneous Notes* Telephone Encounter - Yadira Uribe MA - 11/22/2022 3:15 PM EST Prescription Request: Last medication check: 05/09/2022 Last physical exam: 06/22/2021 Next scheduled appointment: 12/08/2022 Last date of refill on this medication: 09/21/22 for #120 and 1 refill documented in this [facility]01-26-2022 Hospital Discharge instructions Patient Education 12/14/2021 00:51:30 Symptoms With Uncertain Cause Symptoms With Uncertain Cause (Adult) You have been examined, and tests may have been done. However, the exact cause of your symptoms is still not certain. Watch for any new symptoms or worsening of your condition. Another exam or more testing at a later time may be needed. Unless told otherwise, you can go back to your normal routine.Continue to take prescribed medicines as directed. Contact your healthcare provider if you have questions or concerns. Follow-up care Follow up with your healthcare provider if your symptoms do not begin to improve in the next few days, or as advised by our staff. When to seek medical advice Call your healthcare provider if your symptoms get worse or if new symptoms appear. [phone] [employer]. [address] [place] [address]. All rights reserved. This information is not intended as a substitute for professional medical care. Always follow [facility] professional's instructions. 12/14/2021 00:51:30 COVID-19 Prevent the Spread of COVID-19 If You Are Sick (04/06/2020) (Custom) Prevent the Spread of COVID-19 If You Are Sick Accessible version: https://www.cdc.gov/coronavirus/2019-ncov/xl-dbn-tfb-sick/winfg-qyxq-xofw.html If you are sick with COVID-19 or think you might have COVID-19, follow the steps below to help protect other people in your home and community. Stay home except to get medical care. Stay home. Most people with COVID-19 have mild illness and are able to recover at home without medical care. Do not leave your home, except to get medical care. Do not visit public areas. Take care of yourself. Get rest and stay hydrated. Get medical care when needed. Call your doctor before you go to their office for care. But, if you have trouble breathing or other concerning symptoms, call 911 for immediate help. Avoid public transportation, ride-sharing, or taxis. Separate yourself from other people and pets in your home. As much as possible, stay in a specific room and away from other people and pets in your home. Also, you should use a separate bathroom, if available. If you need to be around other people or animalsin or outside of the home, wear a cloth face covering. See COVID-19 and Animals if you have questions about pets: https://www.cdc.gov/coronavirus/2019ncov/faq.html#RKQKB34pczqdon Monitor your symptoms. Common symptoms of COVID-19 include fever and cough. Trouble breathing is a more serious symptom that means you should get medical attention. Follow care instructions from your healthcare provider and local health department. Your local health authorities will give instructions on checking your symptoms and reporting information. If you develop emergency warning signs for COVID-19 get medical attention immediately. Emergency warning signs include*: Trouble breathing Persistent pain or pressure in the chest New confusion or not able to be woken Bluish lips or face *This list is not all inclusive. Please consult your medical provider for any other symptoms that are severe or concerning to you. Call 911 if you have a medical emergency. If you have a medical emergency and need to call 911, notify the centrifugal extractor operator that you have or think you might have, COVID-19. If possible, put on a facemask before medical help arrives Call ahead before visiting your doctor. Call ahead. Many medical visits for routine care are being postponed or done by phone or telemedicine. If you have a medical appointment that cannot be postponed, call your doctor s office. This will help the office protect themselves and other patients. If you are sick, wear a cloth covering over your nose and mouth. You should wear a cloth face covering over your nose and mouth if you must be around other people or animals, including pets (even at home). You don t need to wear the cloth face covering if you are alone. If you can t put on a cloth face covering (because of trouble breathing for example), cover your coughs and sneezes in some other way.Try to stay at least 6 feet away from other people. This will help protect the people around you. Note: During the COVID-19 pandemic, medical grade facemasks are reserved for healthcare workers andsome first responders. You may need to make a cloth face covering using a scarf or bandana. Cover your coughs and sneezes. Cover your mouth and nose with a tissue when you cough or sneeze. Throw used tissues in a lined trash can. Immediately wash your hands with soap and water for at least 20 seconds. If soap and water are not available, clean your hands with an alcohol-based hand seo expert that contains at least 60% alcohol. Clean your hands often. Wash your hands often with soap and water for at least 20 seconds. This is especially important after blowing your nose, coughing, or sneezing; going to the bathroom; and before eating or preparing food. Use hand seo expert if soap and water are not available. Use an alcohol-based hand seo expert with atleast 60% alcohol, covering all surfaces of your hands and rubbing them together until they feel dry. Soap and water are the best option, especially if your hands are visibly dirty. \\ Avoid touching your eyes, nose, and mouth with unwashed hands. Avoid sharing personal household items. Do not share dishes, drinking glasses, cups, eating utensils, towels, or bedding with other people in your home. Wash these items thoroughly after using them with soap and water or put them in the channel development manager. Clean all high-touch surfaces everyday. Clean and disinfect high-touch surfaces in your sick room and bathroom. Let someone else clean and disinfect surfaces in common areas, but not your bedroom and bathroom. If a caregiver or other person needs to clean and disinfect a sick person s bedroom or bathroom, they should do so on an as-needed basis. The caregiver/other person should wear a mask and wait as long as possible after the sick person has used the bathroom High-touch surfaces include phones, remote controls, counters, tabletops, doorknobs, bathroom fixtures, toilets, keyboards, tablets, and bedside tables. Clean and disinfect areas that may have blood, stool, or body fluids on them. Use household brush maker and disinfectants. Clean the area or item with soap and water or another detergent if it is dirty. Then use a household disinfectant. Be sure to follow the instructions on the label to ensure safe and effective use of the product. Many products recommend keeping the surface wet for several minutes to ensure germs are killed. Many also recommend precautions such as wearing gloves and making sure you have good ventilation during use of the product. Most EPA-registered household disinfectants should be effective. How to discontinue home isolation. People with COVID-19 who have stayed home (home isolated) can stop home isolation under the following conditions: If you will not have a test to determine if you are still contagious, you can leave home after these three things have happened: You have had no fever for at least 72 hours (that is three full days of no fever without the use ofmedicine that reduces fevers) AND other symptoms have improved (for example, when your cough or shortness of breath has improved) AND at least 10 days have passed since your symptoms first appeared. If you will be tested to determine if you are still contagious, you can leave home after these three things have happened: You no longer have a fever (without the use of medicine that reduces fevers) AND other symptoms have improved (for example, when your cough or shortness of breath has improved) AND you received two negative tests in a row, 24 hours apart. Your doctor will follow CDC guidelines. In all cases, follow the guidance of your healthcare provider and local health department. The decision to stop home isolation should be made in consultation with your healthcare provider and state and local health departments. Local decisions depend on local circumstances. cdc.gov/coronavirus Follow Up Care 12/13/2021 23:14:18 With:ARTIE JACKSON Address: [address] [place] [id number] Business (1) When:2-4 days Comments:You may return anytime for further work-up. [facility] 10-17-2021 Hospital Discharge instructions* Instructions* Bernie Knight APRN - [facility] - 09/04/2021 Take tylenol for pain * Attachments The following attachments cannot be sent through Care Everywhere. * Tendon Injury (Tendinopathy) ([place]) documented in this [facility] Work Phone: [phone] 227-822210-15-2021 Hospital Discharge instructions Patient Education 09/02/2021 15:00:23 Finger Sprain Finger Sprain A sprain is a stretching or tearing of the ligaments that hold a joint together. There are no broken bones. Sprains take 3 to 6 weeks or more to heal. A sprained finger may be treated with a splint or lilia tape. This is when you tape the injured finger to the one next to it for support. Minor sprains may require no additional support. Home care Keep your hand elevated to reduce pain and swelling. This is very important during the first 48 hours. Apply an ice pack over the injured area for 15 to 20 minutes every 3 to 6 hours. You should do thisfor the first 24 to 48 hours. You can make an ice pack by filling a plastic bag that seals at the top with ice cubes and then wrapping it with a thin towel. Continue the use of ice packs for relief of pain and swelling as needed. As the ice melts, be careful to avoid getting any wrap or splint wet. After 48 hours, apply heat (warm shower or warm bath) for 15 to 20 minutes several times a day, or alternate ice and heat. If lilia tape was applied and it becomes wet or dirty, change it. You may replace it with paper, plastic or cloth tape. Cloth tape and paper tapes must be kept dry. Apply gauze or cotton padding between the fingers, especially at the webbed space. This will help prevent the skin from getting moist and breaking down. Keep the lilia tape in place for at least 4 weeks, or as instructed by your healthcare provider. If a splint was applied, wear it for the time advised. You may use ensa-nrg-fxjrcyo pain medicine to control pain, unless another pain medicine was prescribed. If you have chronic liver or kidney disease or ever had a stomach ulcer or gastrointestinal bleeding, talk with your healthcare provider before using these medicines. Follow-up care Follow up with your healthcare provider, or as directed. Finger joints will become stiff if immobile for too long. If a splint was applied, ask your healthcare provider when it is safe to begin umren-ja-dubwke exercises. Sometimes fractures don t show up on the first X-ray. Bruises and sprains can sometimes hurt as much as a fracture. These injuries can take time to heal completely. If your symptoms don t improve or they get worse, talk with your healthcare provider. You may need a repeat X-ray. If X-rays were taken, you will be told of any new findings that may affect your care. When to seek medical advice Call your healthcare provider right away if any of these occur: Pain or swelling increases Fingers or hand becomes cold, blue, numb, or tingly [phone] [employer]. [address] [place] [address], [place] [address]. All rights reserved. This information is not intended as a substitute for professional medical care. Always follow yourhealthcare professional's instructions. Follow Up Care 09/02/2021 14:35:30 With:VIANEY JACKSON MD Address: [phone] When:2-4 days [facility] Evaluation + Plan note No data available for this section [facility] evaluation + Plan note Future Appointments Appointment Date:06/17/2024 10:15:00 AM Scheduled Provider: Location:[facility] Appointment Type:[facility] Follow Up [facility] evaluation note* Diagnosis Finger swelling- Primary Swelling of limb Pain of finger of left hand Pain in limb documented in this encounter [facility] Work Phone: Evaluation note* Diagnosis Pain in right foot- Primary Pain in soft tissues of limb documented in this encounter [facility] TapResearchaluation note* Diagnosis Diabetes mellitus with proteinuria (CMS/HCC) (HCC)- Primary Elevated serum creatinine Other nonspecific findings on examination of blood documented in this encounter [facility] note* Diagnosis Type 2 diabetes mellitus with diabetic polyneuropathy, with long-term current use of insulin (CMS/HCC) (HCC) documented in this encounter [facility]* Diagnosis Hyperkalemia- Primary Hyperpotassemia documented in this encounter [facility]* Diagnosis Type 2 diabetes mellitus with diabetic polyneuropathy, with long-term current use of insulin (CMS/HCC) (HCC) Diabetic polyneuropathy associated with type 2 diabetes mellitus (CMS/HCC) (HCC) Diabetes mellitus with proteinuria (CMS/HCC) (HCC) documented in this encounter [facility]* Diagnosis Type 2 diabetes mellitus with diabetic polyneuropathy, with long-term current use of insulin (CMS/HCC) (HCC)- Primary documented in this encounter [facility]* Diagnosis Type 2 diabetes mellitus with diabetic polyneuropathy, with long-term current use of insulin (CMS/HCC) (HCC) Class 2 obesity due to excess calories without serious comorbidity with body mass index (BMI) of 38.0 to 38.9 in adult documented in this encounter [facility]* Diagnosis Urinary frequency- Primary documented in this encounter [facility]* Diagnosis Type 2 diabetes mellitus with diabetic polyneuropathy, with long-term current use of insulin (CMS/HCC) (HCC) Diabetic polyneuropathy associated with type 2 diabetes mellitus (CMS/HCC) (HCC) Diabetes mellitus with proteinuria (CMS/HCC) (HCC) documented in this encounter [facility]* Diagnosis Hyperlipidemia LDL goal <70 Other and unspecified hyperlipidemia documented in this encounter [facility]* Diagnosis Hyperlipidemia LDL goal <70 Other and unspecified hyperlipidemia documented in this encounter [facility]* Diagnosis Type 2 diabetes mellitus with diabetic polyneuropathy, with long-term current use of insulin (CMS/HCC) (HCC) Diabetic polyneuropathy associated with type 2 diabetes mellitus (CMS/HCC) (HCC) Diabetes mellitus with proteinuria (CMS/HCC) (HCC) documented in this encounter [facility]* Diagnosis Type 2 diabetes mellitus with diabetic polyneuropathy, with long-term current use of insulin (CMS/HCC) (HCC)- Primary Chronic renal disease, stage IV (HCC) Chronic kidney disease, Stage IV (severe) documented in this encounter [facility]* Diagnosis Type 2 diabetes mellitus with diabetic polyneuropathy, with long-term current use of insulin (CMS/HCC) (HCC) Diabetic polyneuropathy associated with type 2 diabetes mellitus (CMS/HCC) (HCC) documented in this encounter [facility]* Diagnosis Type 2 diabetes mellitus with diabetic polyneuropathy, with long-term current use of insulin (CMS/HCC) (HCC) Diabetic polyneuropathy associated with type 2 diabetes mellitus (CMS/HCC) (HCC) 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) [facility]* Diagnosis Type 2 diabetes mellitus with diabetic polyneuropathy, with long-term current use of insulin (CMS/HCC) (HCC) Chronic renal disease, stage IV (HCC) Chronic kidney disease, Stage IV (severe) documented in this encounter [facility]* Diagnosis Hyperlipidemia LDL goal <70 Other and unspecified hyperlipidemia [facility]* Diagnosis Type 2 diabetes mellitus with diabetic polyneuropathy, with long-term current use of insulin (HCC) [facility]* Diagnosis Essential hypertension- Primary Unspecified essential hypertension [facility]* Diagnosis Type 2 diabetes mellitus with diabetic polyneuropathy, with long-term current use of insulin (HCC)- Primary Chronic renal disease, stage IV (HCC) Chronic kidney disease, Stage IV (severe) Essential hypertension Unspecified essential hypertension Gastroesophageal reflux disease, unspecified whether esophagitis present Hyperlipidemia LDL goal <70 Other and unspecified hyperlipidemia Essential hypertension Unspecified essential hypertension documented in this encounter [facility]* Diagnosis Type 2 diabetes mellitus with diabetic polyneuropathy, with long-term current use of insulin (HCC)- Primary Chronic renal disease, stage IV (HCC) Chronic kidney disease, Stage IV (severe) Essential hypertension Unspecified essential hypertension Gastroesophageal reflux disease, unspecified whether esophagitis present Hyperlipidemia LDL goal <70 Other and unspecified hyperlipidemia Diabetes mellitus with proteinuria (CMS/HCC) (HCC) ([facility])- Primary Type 2 diabetes mellitus with diabetic polyneuropathy, with long-term current use of insulin ([facility]) Encounter for diabetic foot exam ([facility]) Paroxysmal atrial fibrillation (HCC) Atrial fibrillation Cardiomyopathy, unspecified type (HCC) Chronic renal disease, stage IV (HCC) Chronic kidney disease, Stage IV (severe) Class 1 obesity due to excess calories without serious comorbidity with body mass index (BMI) of 34.0 to 34.9 in adult Cigarette nicotine dependence without complication Essential hypertension Unspecified essential hypertension Hyperlipidemia LDL goal <70 Other and unspecified hyperlipidemia Necrotizing fasciitis (HCC) Necrotizing fasciitis Pressure injury of deep tissue of buttock, unspecified laterality Screening for prostate cancer Special screening for malignant neoplasm of prostate Influenza vaccine refused documented in this encounter [facility]* Diagnosis Right foot pain- Primary Pain in soft tissues of limb Right foot pain Pain in soft tissues of limb documented in this encounter [facility]* Diagnosis Charcot's joint of right foot Type 2 diabetes mellitus with diabetic polyneuropathy, with long-term current use of insulin (CMS/HCC) (HCC) Diabetic polyneuropathy associated with type 2 diabetes mellitus (CMS/HCC) (HCC) documented in this encounter [facility]* Diagnosis Right foot pain Pain in soft tissues of limb documented in this encounter [facility]* Diagnosis Type 2 diabetes mellitus with diabetic polyneuropathy, with long-term current use of insulin (CMS/HCC) (HCC)- Primary Diabetic polyneuropathy associated with type 2 diabetes mellitus (CMS/HCC) (HCC) Diabetes mellitus with proteinuria ([facility]/HCC) ([facility]) Encounter for diabetic foot exam ([facility]) Essential hypertension Unspecified essential hypertension Hyperlipidemia LDL goal <70 Other and unspecified hyperlipidemia Cigarette nicotine dependence without complication Class 2 obesity due to excess calories without serious comorbidity with body mass index (BMI) of 38.0 to 38.9 in adult Gastroesophageal reflux disease, unspecified whether esophagitis present Screening for prostate cancer Special screening for malignant neoplasm of prostate documented in this encounter [facility]* Diagnosis Diabetes mellitus with proteinuria ([facility]) ([facility])- Primary Elevated serum creatinine Other nonspecific findings on examination of blood Type 2 diabetes mellitus with diabetic polyneuropathy, with long-term current use of insulin ([facility]) ([facility]) Poorly controlled type 2 diabetes mellitus ([facility]) ([facility]) documented in this encounter [facility]* Diagnosis Type 2 diabetes mellitus with diabetic polyneuropathy, with long-term current use of insulin ([facility]) ([facility]) Diabetic polyneuropathy associated with type 2 diabetes mellitus ([facility]) ([facility]) Diabetes mellitus with proteinuria ([facility]) ([facility]) documented in this encounter [facility]* Diagnosis Diabetic eye exam ([facility]) ([facility])- Primary Examination of eyes and vision Type 2 diabetes mellitus with diabetic polyneuropathy, with long-term current use of insulin ([facility]) ([facility]) documented in this encounter [facility]* Diagnosis Type 2 diabetes mellitus with diabetic polyneuropathy, with long-term current use of insulin ([facility])- Primary Chronic renal disease, stage IV (HCC) Chronic kidney disease, Stage IV (severe) Essential hypertension Unspecified essential hypertension Gastroesophageal reflux disease, unspecified whether esophagitis present Hyperlipidemia LDL goal <70 Other and unspecified hyperlipidemia 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, not elsewhere classified Gross hematuria Chronic kidney disease, unspecified CKD stage documented in this encounter [facility]* Diagnosis Type 2 diabetes mellitus with diabetic polyneuropathy, with long-term current use of insulin ([facility])- Primary Chronic renal disease, stage IV (HCC) Chronic kidney disease, Stage IV (severe) Essential hypertension Unspecified essential hypertension Gastroesophageal reflux disease, unspecified whether esophagitis present Hyperlipidemia LDL goal <70 Other and unspecified hyperlipidemia Type 2 diabetes mellitus with diabetic polyneuropathy, with long-term current use of insulin ([facility]) [facility] Diagnosis Type 2 diabetes mellitus with diabetic polyneuropathy, with long-term current use of insulin (HCC)- Primary Chronic renal disease, stage IV (HCC) Chronic kidney disease, Stage IV (severe) Essential hypertension Unspecified essential hypertension Gastroesophageal reflux disease, unspecified whether esophagitis present Hyperlipidemia LDL goal <70 Other and unspecified hyperlipidemia 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, 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, 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 documented in this encounter [facility] note* Diagnosis Type 2 diabetes mellitus with diabetic polyneuropathy, with long-term current use of insulin ([facility])- Primary Chronic renal disease, stage IV (HCC) Chronic kidney disease, Stage IV (severe) Essential hypertension Unspecified essential hypertension Gastroesophageal reflux disease, unspecified whether esophagitis present Hyperlipidemia LDL goal <70 Other and unspecified hyperlipidemia 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, 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, 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 documented in this encounter [facility] note* Diagnosis Type 2 diabetes mellitus with diabetic polyneuropathy, with long-term current use of insulin (HCC)- Primary Chronic renal disease, stage IV (HCC) Chronic kidney disease, Stage IV (severe) Essential hypertension Unspecified essential hypertension Gastroesophageal reflux disease, unspecified whether esophagitis present Hyperlipidemia LDL goal <70 Other and unspecified hyperlipidemia 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, 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, 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 documented in this encounter [facility] note* Diagnosis Type 2 diabetes mellitus with diabetic polyneuropathy, with long-term current use of insulin (HCC)- Primary Chronic renal disease, stage IV (HCC) Chronic kidney disease, Stage IV (severe) Essential hypertension Unspecified essential hypertension Gastroesophageal reflux disease, unspecified whether esophagitis present Hyperlipidemia LDL goal <70 Other and unspecified hyperlipidemia Diabetes mellitus with proteinuria ([facility]/HCC) (HCC) (HCC) Type 2 diabetes mellitus with diabetic polyneuropathy, with long-term current use of insulin ([facility]) documented in this encounter [facility] note* Diagnosis Type 2 diabetes mellitus with diabetic polyneuropathy, with long-term current use of insulin (HCC)- Primary Chronic renal disease, stage IV (HCC) Chronic kidney disease, Stage IV (severe) Essential hypertension Unspecified essential hypertension Gastroesophageal reflux disease, unspecified whether esophagitis present Hyperlipidemia LDL goal <70 Other and unspecified hyperlipidemia Type 2 diabetes mellitus with diabetic polyneuropathy, with long-term current use of insulin (HCC) documented in this encounter [facility] note* Diagnosis Type 2 diabetes mellitus with diabetic polyneuropathy, with long-term current use of insulin (HCC)- Primary Chronic renal disease, stage IV (HCC) Chronic kidney disease, Stage IV (severe) Essential hypertension Unspecified essential hypertension Gastroesophageal reflux disease, unspecified whether esophagitis present Hyperlipidemia LDL goal <70 Other and unspecified hyperlipidemia Type 2 diabetes mellitus with diabetic polyneuropathy, with long-term current use of insulin (HCC)- Primary Chronic renal disease, stage IV (HCC) Chronic kidney disease, Stage IV (severe) Low hemoglobin Cardiomyopathy, unspecified type (HCC) 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) Essential hypertension Unspecified essential hypertension Hyperlipidemia LDL goal <70 Other and unspecified hyperlipidemia Paroxysmal atrial fibrillation (HCC) Atrial fibrillation Open wound of skin documented in this encounter [facility] note* Diagnosis Type 2 diabetes mellitus with diabetic polyneuropathy, with long-term current use of insulin (HCC)- Primary Chronic renal disease, stage IV (HCC) Chronic kidney disease, Stage IV (severe) Essential hypertension Unspecified essential hypertension Gastroesophageal reflux disease, unspecified whether esophagitis present Hyperlipidemia LDL goal <70 Other and unspecified hyperlipidemia Type 2 diabetes mellitus with diabetic polyneuropathy, with long-term current use of insulin (HCC)- Primary Chronic renal disease, stage IV (HCC) Chronic kidney disease, Stage IV (severe) Low hemoglobin Cardiomyopathy, unspecified type (HCC) 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) Essential hypertension Unspecified essential hypertension Hyperlipidemia LDL goal <70 Other and unspecified hyperlipidemia Paroxysmal atrial fibrillation (HCC) Atrial fibrillation Open wound of skin Type 2 diabetes mellitus with diabetic polyneuropathy, with long-term current use of insulin (HCC) documented in this encounter [facility] note* Diagnosis Type 2 diabetes mellitus with diabetic polyneuropathy, with long-term current use of insulin (HCC)- Primary Chronic renal disease, stage IV (HCC) Chronic kidney disease, Stage IV (severe) Essential hypertension Unspecified essential hypertension Gastroesophageal reflux disease, unspecified whether esophagitis present Hyperlipidemia LDL goal <70 Other and unspecified hyperlipidemia Type 2 diabetes mellitus with diabetic polyneuropathy, with long-term current use of insulin (HCC)- Primary Chronic renal disease, stage IV (HCC) Chronic kidney disease, Stage IV (severe) Low hemoglobin Cardiomyopathy, unspecified type (HCC) 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) Essential hypertension Unspecified essential hypertension Hyperlipidemia LDL goal <70 Other and unspecified hyperlipidemia Paroxysmal atrial fibrillation (HCC) Atrial fibrillation Open wound of skin Hyperlipidemia LDL goal <70 Other and unspecified hyperlipidemia documented in this encounter [facility] note* Diagnosis Type 2 diabetes mellitus with diabetic polyneuropathy, with long-term current use of insulin (HCC)- Primary Chronic renal disease, stage IV (HCC) Chronic kidney disease, Stage IV (severe) Essential hypertension Unspecified essential hypertension Gastroesophageal reflux disease, unspecified whether esophagitis present Hyperlipidemia LDL goal <70 Other and unspecified hyperlipidemia Type 2 diabetes mellitus with diabetic polyneuropathy, with long-term current use of insulin (HCC)- Primary Chronic renal disease, stage IV (HCC) Chronic kidney disease, Stage IV (severe) Low hemoglobin Cardiomyopathy, unspecified type (HCC) 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) Essential hypertension Unspecified essential hypertension Hyperlipidemia LDL goal <70 Other and unspecified hyperlipidemia Paroxysmal atrial fibrillation (HCC) Atrial fibrillation Open wound of skin Cardiomyopathy, unspecified type (HCC) Essential hypertension Unspecified essential hypertension documented in this encounter [facility] Discharge instructions No data available for this section [facility] Reason for referral (narrative)* Consultation (Routine) - Pending Review Specialty Diagnoses / Procedures Referred By Contac t Referred To Contact Nephrology Diagnoses Elevated serum creatinine Diabetes mellitus with proteinuria (CMS/HCC) (HCC) Procedures RI OFFICE/OUTPATIENT NEW HIGH MDM 60-74 MINUTES Phoebe Adam APRN - [employer] [address] [place] [address] Keyona Paige MD [address] [place] [address], [address] [place] [address] Referral ID Status Reason Start Date Expiration Date Visits Requested Visits Authorized [id number] Pending Review Specialty Services Required 03/21/2023 03/20/2024 1 [facility] Consultation (Routine) - Pending Review Specialty Diagnoses / Procedures Referred By Contac t Referred To Contact Ophthalmology Diagnoses Type 2 diabetes mellitus with diabetic polyneuropathy, with long-term current use of insulin (CMS/HCC) (HCC) Procedures RI OFFICE/OUTPATIENT NEW HIGH MDM 60-74 MINUTES Phoebe Adam, AUTOMATION TECH - [employer] [place] [address] Rae Mccarthy MD [address] [place] [id number] Referral ID Status Reason Start Date Expiration Date Visits Requested Visits Authorized [id number] Pending Review Specialty Services Required 01/08/2023 01/08/2024 1 1 [facility] Consultation (Routine) - Pending Review Specialty Diagnoses / Procedures Referred By Contac t Referred To Contact Endocrinology Diagnoses Diabetes mellitus with proteinuria (CMS/HCC) (HCC) Type 2 diabetes mellitus with diabetic polyneuropathy, with long-term current use of insulin (CMS/HCC) (HCC) Poorly controlled type 2 diabetes mellitus (CMS/HCC) (HCC) Procedures RI OFFICE/OUTPATIENT NEW HIGH MDM 60-74 MINUTES Phoebe Adam, AUTOMATION TECH - [employer] [place] [address] [facility] Diabetes [address] [place] [id number] Referral ID Status Reason Start Date Expiration Date Visits Requested Visits Authorized [id number] Pending Review Specialty Services Required 01/10/2023 01/10/2024 1 1 * Consultation (Routine) - Pending Review Specialty Diagnoses / Procedures Referred By Contac t Referred To Contact Nephrology Diagnoses Diabetes mellitus with proteinuria ([facility]) (HCC) Elevated serum creatinine Procedures RI OFFICE/OUTPATIENT NEW HIGH MDM 60-74 MINUTES Phoebe Adam APRN - [employer] [place] [address] Sierra Ward MD [address] [place] [address], [facility] [place] [address] Referral ID Status Reason Start Date Expiration Date Visits Requested Visits Authorized [id number] Pending Review Specialty Services Required 01/10/2023 01/10/2024 1 1 [facility] Consultation (Routine) - Pending Review Specialty Diagnoses / Procedures Referred By Contac t Referred To Contact Ophthalmology Diagnoses Type 2 diabetes mellitus with diabetic polyneuropathy, with long-term current use of insulin (CMS/[facility]) (HCC) Diabetic eye exam ([facility]) ([facility]) Procedures RI OFFICE/OUTPATIENT NEW HIGH MDM 60-74 MINUTES Phoebe Adam AUTOMATION TECH - [employer] [place] [address] Referral ID Status Reason Start Date Expiration Date Visits Requested Visits Authorized [id number] Pending Review Specialty Services Required 01/22/2023 01/22/2024 1 1 [facility]* EMILIANO Blount: PERFORM Event Display: Patient Summary Documents Authored Date: [id number] [facility] Summary note* Bess Parker: PERFORM Event Display: Patient Summary Documents Authored Date: [id number] [facility] Discharge Instructions * Instructions* Tuyet Gupta, DASHAWN - 05/14/2020 POST OPERATIVE INSTRUCTIONS PLEASE READ CAREFULLY [x] Rest but walk occasionally to prevent leg blood clots. [x] Elevation of leg while resting to at least the level of the thigh. [x] Keep ice bag(s) on area while resting; (20 minutes on and 20 minutes off). [x] DO NOT remove or get the dressing wet or dirty. [x] For showering, apply 2 layers of plastic wrap around the dressing and then place in a plastic bag with a tight rubber band. Do not immerse dressing in water. [x] Weight bearing with no surgical shoe needed as patient brought one [x] Call my office today (office [phone]) for follow up appointment in 3 days. [x] Have your prescriptions filled promptly and take as prescribed. [x] Do not be alarmed if blood appears on the bandage or if black and blue ramachandran appear. Some silver dollar size blood on outer bandage is ok. If this gets larger Please call me. My cell phone is [phone]. [x] If any unusual situation arises- Call Immediately. documented in this encounter* Instructions* Shashank Finch, DPM - 11/15/2020 Dr. Finch Discharge Instructions Diet: ? ? Progress to regular diet ? Activity: ? ? Light activity ? ? Keep extremity elevated for _next 72_ hours ? ? Partial weight bearing with boot on ? Medications: ? ? Resume home medications ? Take medications as prescribed by your surgeon Wound Care: ? ? Do not remove dressing until seen in the office Call your surgeon for the following: ? Excessive bleeding/swelling of incision ? Fever above 100 F ? Severe, continuous pain that is not relieved with medication ? Inability to urinate 8 hours after discharge from the hospital Anesthesia Precautions: ? Do not drive for 24 hours ? No alcoholic beverages for 24 hours ? To decrease post-op nausea and vomiting, start your diet with liquids and progress to light foods. If tolerated, resume a normal diet documented in this encounter Advance Directives No Advanced Directives Records FoundDocuments on File Type Date Recorded Patient Care Management Associate Expl anation Advance Directives and Living Will Power of [employer] Developer Latest Code Status on File Code Status Date Activated Date Inactivated Comments Full Code 05/14/2020 7:34 AM Documents on File Type Date Recorded Patient Care Management Associate Expl anation ACP-Advance Directive ACP-Power of [employer] Developer Latest Code Status on File Code Status Date Activated Date Inactivated Comments Full Code 05/14/2020 7:34 AM 05/14/2020 12:49 PM Documents on File Type Date Recorded Patient Care Management Associate Expl anation ACP-Advance Directive ACP-Power of [employer] Middleware Developer Latest Code Status on File Code Status Date Activated Date Inactivated Comments Full Code 05/14/2020 7:34 AM 05/14/2020 12:49 PM History of Present Illness * Cathleen Romeo RN - 11/15/2020 10:30 AM EST D/c instructions reviewed, pt and family verbalize understanding. Pt states he will f/u with surgeon as scheduled. Pt assisted to exit in wheelchair, family will drive. Pt has all belongings. documented in this encounter Reason for Referral Specialty Diagnoses / Procedures Referred By Contac t Referred To Contact Phoebe Adam AUTOMATION TECH - [employer] [address] [place] [address] Referral ID Status Reason Start Date Expiration Date V isits Requested Visits Authorized [id number] Pending Review 1 1 Specialty Diagnoses / Procedures Referred By Contlatrice t Referred To Contact Shreya Olivera APRN - QU[place]ER [address] [facility] [place] [address] Referral ID Status Reason Start Date Expiration Date Visits Re quested Visits Authorized [id number] Closed 1 1 Status Reason Specialty Diagnoses / Procedures Referred By Contact Referred To Contact Open Specialty Services Required Orthopedic Surgery: Hand Surgery / Orthopedic Surgery Diagnoses Finger swelling Pain of finger of left hand Bernie Knight APRN - QUAHOGGER [address] [place] [address] [address] [address] [address] [place] [address] Scheduling Instructions [facility] Orthopedics Hand/Wrist Upper Extremities - Green [address], [address] [place] [address] Summary Purpose Family History No Family History Records Found No data available for this section No data available for this section No data available for this section No data available for this section No data available for this section No data available for this section No data available for this section No data available for this section No data available for this section No Family History Records Found No data available for this section No Family History Records FoundNo Family History Records FoundNo Family History Records FoundNo Family History Records Found Additional Source Comments Reason for Visit (unrecogniz ed section and content) Reason Comments Finger Pain Reason Comments Med Refill Reason Onset Date Comments Results 04/06/2023 Reason Onset Date Comments Orders 07/03/2023 Reason Onset Date Comments Release of Information 05/18/2023 Reason Onset Date Comments other 07/30/2023 Reason Onset Date Comments Med Refill 08/15/2023 Reason Onset Date Comments Med Refill 08/26/2023 Reason Onset Date Comments Med Refill 10/18/2023 Reason Comments Med Refill Reason Comments Blood Work Health Maintenance Echo- had done in [facility] Flu- declines Hiv/Hep C screen- declines Crcs- declines PNA- declines Dm Dental- not done Hep A- declines Covid- not done Care Management Reason Comments New Patient Right foot charcot Reason Onset Date Comments Med Refill 01/01/2023 Reason Comments Annual Exam Health Maintenance Hep C--declines, HIV --declines, Colon--declines, DM eye--has not had, Dental--has not been, Hep B--declines, COVID--declines, MMR--has had as a kid, Pneumo--declines, Flu--declines Reason Onset Date Comments Med Refill 01/21/2023 Reason Onset Date Comments Med Refill 01/22/2023 Reason Onset Date Comments [facility] 01/22/2023 [facility] Reason Onset Date Comments Med Refill 11/19/2024 Reason Onset Date Comments Cancelled Appointment 10/21/2024 Reason Comments New Patient had sepsis and gangr olinda in testicle area, now has an open spot that urine is coming thru, urethral erosion, green discharge Specialty Diagnoses / Procedures Referred By Sachi t Referred To Contact Urology Diagnoses urinary issues Procedures eval and tx Satnam Galan DO [address] [place] [address] Phone: tel:[phone] fax: [facility] [place] [address] [place] [address] Phone: tel: fax: Referral ID Status Reason Start Date Expiration Date Visits Re quested Visits Authorized [id number] Closed 09/23/2024 09/23/2025 1 1 Reason Onset Date Comments Surgery Scheduling 12/09/2024 Reason Comments 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 [address] [place] [address] Phone: tel: fax: Referral ID Status Reason Start Date Expiration Date V isits Requested Visits Authorized [id number] Closed Specialty Services Required 12/15/2024 12/15/2025 1 1 Reason Onset Date Comments Surgery Scheduling 01/22/2025 Reason Onset Date Comments Breathing Problem 02/05/2025 Reason Onset Date Comments Med Refill 04/15/2025 Reason Onset Date Comments Med Refill 04/27/2025 Reason Onset Date Comments Med Refill 05/21/2025 Reason Onset Date Comments Med Refill 06/11/2025 Reason Comments Diabetes Reason Onset Date Comments Medication Problem 06/16/2025 Ordered Prescriptions (unrec ognized section and content) Prescription Sig Dispensed Refills Start Date End Da te cephALEXin (KEFLEX) 500 MG capsule Take 1 capsule by mouth 4 times daily for 7 days 28 capsule 0 09/04/2021 09/11/2021 Scheduled Active and Recently Administ ered Medications (unrecognized section and content) Medication Order 09/02/2021 09/03/2021 09/04/2021 acetaminophen (TYLENOL) tablet 650 mg (COMPLETED) 650 mg, Oral, ONCE, On 09/04/21 at 2116, For 1 dose, Maximum dose of acetaminophen is 4000 mg from all sources in 24 hours. 2138 (Given - Provid er: Steffany Perez RN) cephALEXin (KEFLEX) capsule 500 mg (COMPLETED) 500 mg, Oral, ONCE, On 09/04/21 at 2116, For 1 dose 2138 (Given - Provid er: Steffany Perez RN) (unrecognized sect ion and content) No Status Records FoundNo Status Records FoundNo Status Records FoundNo Status Records FoundNo Status Records FoundNo Status Records Found INFORMATION SOURCE (unrecogn ized section and content) DATE CREATED AUTHOR 01/12/2022 [facility] DATE CREATED AUTHOR AUTHOR'S ORGANIZ ATION 07/23/2024 [facility] DATE CREATED AUTHOR AUTHOR'S ORGANIZ ATION 03/08/2025 [facility] DATE CREATED AUTHOR AUTHOR'S ORGANIZ ATION 03/30/2025 [facility] DATE CREATED AUTHOR AUTHOR'S ORGANIZ ATION 09/06/2025 [facility] DATE CREATED AUTHOR AUTHOR'S ORGANIZ ATION 09/06/2025 [facility] Care Teams (unrecognized sec tion and content) Internal Grinder Tender Relationship Specialty Start Date End Date Artie Jackson MD [address] [place] [id number] PCP - General 08/27/17 Internal Grinder Tender Relationship Specialty Start Date End Date Artie Jackson MD [address] [place] [address] [id number] PCP - General 08/27/17 Internal Grinder Tender Relationship Specialty Start Date End Date Artie Jackson MD [address] [facility] [place] [id number] PCP - General 08/27/17 Internal Grinder Tender Relationship Specialty Start Date End Date Artie Jackson MD [address] [facility] [place] [address] PCP - General 08/27/17 Internal Grinder Tender Relationship Specialty Start Date End Date Artie Jackson MD [address] [facility] [place] [address] PCP - General 08/27/17 Internal Grinder Tender Relationship Specialty Start Date End Date Artie Jackson MD [address] [facility] [place] [address] PCP - General 08/27/17 Internal Grinder Tender Relationship Specialty Start Date End Date Artie Jackson MD [address] [facility] [place] [address] PCP - General 08/27/17 Internal Grinder Tender Relationship Specialty Start Date End Date Artie Jackson MD [address] [facility] [place] [address] PCP - General 08/27/17 Internal Grinder Tender Relationship Specialty Start Date End Date Artie Jackson MD [address] [facility] [place] [address] PCP - General 08/27/17 Internal Grinder Tender Relationship Specialty Start Date End Date Artie Jackson MD [address] [facility] [place] [address] PCP - General 08/27/17 Internal Grinder Tender Relationship Specialty Start Date End Date Artie Jackson MD [address] [facility] [place] [address] PCP - General 08/27/17 Internal Grinder Tender Relationship Specialty Start Date End Date Artie Jackson MD [address] [place] [address] PCP - General 08/27/17 Internal Grinder Tender Relationship Specialty Start Date End Date Artie Jackson MD [address] [facility] [place] [address] PCP - General 08/27/17 Internal Grinder Tender Relationship Specialty Start Date End Date Artie Jackson MD [address] [facility] [place] [address] PCP - General 08/27/17 Internal Grinder Tender Relationship Specialty Start Date End Date Artie Jackson MD [address] [place] [address] PCP - General 08/27/17 Internal Grinder Tender Relationship Specialty Start Date End Date Artie Jackson MD [address] [place] [address] PCP - General 08/27/17 Internal Grinder Tender Relationship Specialty Start Date End Date Artie Jackson MD [address] [place] [address] PCP - General 08/27/17 Internal Grinder Tender Relationship Specialty Start Date End Date Artie Jackson MD [address] [facility] [place] [address] PCP - General 08/27/17 Internal Grinder Tender Relationship Specialty Start Date End Date [facility] [place] [address] PCP - General 08/27/17 Internal Grinder Tender Relationship Specialty Start Date End Date Artie Jackson [facility] [place] [address] PCP - General 08/27/17 Internal Grinder Tender Relationship Specialty Start Date End Date Artie Jackson [facility] [place] [address] PCP - General 08/27/17 Internal Grinder Tender Relationship Specialty Start Date [place] [address] PCP - General 08/27/17 Internal Grinder Tender Relationship Specialty Start Date End Date Artie Jackson [facility] [place] [address] PCP - General 08/27/17 Internal Grinder Tender Relationship Specialty Start Date End Date Artie Jackson MD [facility] [place] [address] PCP - General 08/27/17 Internal Grinder Tender Relationship Specialty Start Date End Date Artie Jackson MD [facility] [place] [address] PCP - General 08/27/17 Internal Grinder Tender Relationship Specialty Start Date End Date Artie Jackson [facility] [place] [address] PCP - General 08/27/17 Internal Grinder Tender Relationship Specialty Start Date End Date Artie Jackson MD [address] [place], [place] [address] [address] PCP - General 08/27/17 Internal Grinder Tender Relationship Specialty Start Date End Date Artie Jackson MD [address] [place] [address] PCP - General 08/27/17 Internal Grinder Tender Relationship Specialty Start Date End Date Artie Jackson MD [address] [place], [place] [address] [address] PCP - General 08/27/17 Internal Grinder Tender Relationship Specialty Start Date End Date Artie Jackson MD [address] [place] [address] PCP - General 08/27/17 Internal Grinder Tender Relationship Specialty Start Date End Date Artie Jackson MD [address] [place], [place] [address] [address] PCP - General 08/27/17 Garrick Velasquez MD [address] [address] Surgeon Urology 10/21/24 Internal Grinder Tender Relationship Specialty Start Date End Date Artie Jackson MD [address] [place], [place] [address] [address] PCP - General 08/27/17 Garrick Velasquez MD [address] [address] Surgeon Urology 10/21/24 Internal Grinder Tender Relationship Specialty Start Date [place] [address] PCP - General 08/27/17 Garrick Velasquez MD [address] [address] Surgeon Urology 10/21/24 Internal Grinder Tender Relationship Specialty Start Date [place] [address] PCP - General 08/27/17 Garrick Velasquez MD [address] [address] Surgeon Urology 10/21/24 Internal Grinder Tender Relationship Specialty Start Date End [place] [address] PCP - General 08/27/17 Garrick Velasquez MD [address] [address] Surgeon Urology 10/21/24 Internal Grinder Tender Relationship Specialty Start Date [place] [address] PCP - General 08/27/17 Garrick Velasquez MD [address] [address] Surgeon Urology 10/21/24 Internal Grinder Tender Relationship Specialty Start Date End Date Artie Jackson MD 25 [facility] [place] [address] PCP - General 08/27/17 Garrick Velasquez MD 201 [facility] [address] [place] [address] Surgeon Urology 10/21/24 Jose Morrison MD 95 [facility] [address] [place] [address] Urology 01/22/25 Internal Grinder Tender Relationship Specialty Start Date [place] [address] PCP - General 08/27/17 Garrick Velasquez MD [address] [facility] [address] [place] [address] Surgeon Urology 10/21/24 Jose Morrison MD 95 [facility] [address] [place] [address] Urology 01/22/25 Internal Grinder Tender Relationship Specialty Start Date End Date Artie Jackson MD 25 [facility] [place] [address] PCP - General 08/27/17 Garrick Velasquez MD [address] [facility] [address] [place] [address] Surgeon Urology 10/21/24 Jose Morrison MD 95 [facility] [address] [place] [address] Urology 01/22/25 Internal Grinder Tender Relationship Specialty Start Date End Date Artie Jackson MD 25 [facility] [place] [address] PCP - General 08/27/17 Garrick Velasquez MD 201 [facility] 3 [place] [address] Surgeon Urology 10/21/24 Jose Morrison MD 95 [facility] [address] [place] [address] Urology 01/22/25 Internal Grinder Tender Relationship Specialty Start Date End Date Artie Jackson MD 25 [place] [address] PCP - General 08/27/17 Garrick Velasquez MD 201 [facility] 3 [place] [address] Surgeon Urology 10/21/24 Jose Morrison MD 95 [facility] 165 [place] [address] Urology 01/22/25 Internal Grinder Tender Relationship Specialty Start Date End Date Artie Jakcson MD 25 [facility] [place] [address] PCP - General 08/27/17 Garrick Velasquez MD 201 [facility] 3 [place] [address] Surgeon Urology 10/21/24 Jose Morrison MD 95 [facility] 165 [place] [address] Urology 01/22/25 Internal Grinder Tender Relationship Specialty Start Date [place] [address] PCP - General 08/27/17 Garrick Velasquez MD 201 [facility] 3 [place] [address] Surgeon Urology 10/21/24 Jose Morrison MD [address] [address] Urology 01/22/25 Internal Grinder Tender Relationship Specialty Start Date [place] [address] PCP - General 08/27/17 Garrick Velasquez MD [address] [address] Surgeon Urology 10/21/24 Jose Morrison MD [address] [address] Urology 01/22/25 Internal Grinder Tender Relationship Specialty Start Date End [place] [address] PCP - General 08/27/17 Garrick Velasquez MD [address] [address] Surgeon Urology 10/21/24 Jose Morrison MD 95 [facility] [address] [place] [address] Urology 01/22/25 Internal Grinder Tender Relationship Specialty Start Date End Date Artie Jackson MD [facility] [place] [address] PCP - General 08/27/17 Garrick Velasquez MD 201 [facility] 3 [place] [address] Surgeon Urology 10/21/24 Jose Morrison MD [address] [address] Urology 01/22/25 Internal Grinder Tender Relationship Specialty Start Date End Date Artie Jackson MD [facility] [place] [address] PCP - General 08/27/17 Garrick Velasquez MD [address] [address] Surgeon Urology 10/21/24 Jose Morrison MD 95 [facility] [address] [place] [address] Urology 01/22/25 Internal Grinder Tender Relationship Specialty Start Date End Date Artie Jackson MD [facility] [address] [email or web address] [address] PCP - General 08/27/17 Garrick Velasquez MD 201 [facility] 3 [place] [address] Surgeon Urology 10/21/24 Jose Morrison MD 95 [facility] [address] [place] [address] Urology 01/22/25 Internal Grinder Tender Relationship Specialty Start Date [place] [address] PCP - General 08/27/17 Garrick Velasquez MD 201 [facility] 3 [place] [address] Surgeon Urology 10/21/24 Jose Morrison MD [address] [address] Urology 01/22/25 Internal Grinder Tender Relationship Specialty Start Date End Date Artie Jackson MD [facility] [place] [address] PCP - General 08/27/17 Garrick Velasquez MD 201 [facility] 3 [place] [address] Surgeon Urology 10/21/24 Jose Morrison MD 95 [facility] [address] [place] [address] Urology 01/22/25 Internal Grinder Tender Relationship Specialty Start Date End Date Artie Jackson MD [place] [facility] [place] [address] PCP - General 08/27/17 Garrick Velasquez MD 201 [facility] 3 [place] [address] Surgeon Urology 10/21/24 Jose Morrison MD [address] [address] Urology 01/22/25 Internal Grinder Tender Relationship Specialty Start Date End Date Artie Jackson MD [address] [place] [address], [address] [place], [place] [phone] PCP - General 08/27/17 Garrick Velasquez MD [address] [address] Surgeon Urology 10/21/24 Jose Morrison MD [address] [address] Urology 01/22/25 FOR RECORDS PERTAINING TO PATIENTS WHO ARE OR HAVE BEEN ENROLLED IN A CHEMICAL DEPENDENCY/SUBSTANCEABUSE PROGRAM, SOME INFORMATION MAY BE OMITTED. This clinical summary was aggregated from multiple sources. Caution should be exercised in using it in the provision of clinical care. This summary normalizes information from multiple sources, and as a consequence, information in this document may materially change the coding, format and clinical context of patient data. In addition, data may be omitted in some cases. CLINICAL DECISIONS SHOULD BE BASED ON THE PRIMARY CLINICAL RECORDS. [facility] [employer] [facility]. provides no warranty or guarantee of the accuracy or completeness of information in this document."
[2025-09-07 21:54] LABS: Anion Gap 17 (5-15); BUN 60 mg/dL (4-19); BUN/Creat Ratio 6.8 RATIO (10-20); Calcium,Total 8.6 mg/dL (7.6-11.0); Carbon Dioxide 18.0 mmol/L (21.0-32.0); Chloride 97 mmol/L (98-108); Estimated Creatinine Clearance 15.21 ml/min (50-250); Glucose 348 mg/dL (70-99); Potassium 6.7 mmol/L (3.3-5.1)
--- NOTE | 2025-09-07 22:22 | EKG12_ITS ---
Test Reason : DYSRHYTHMIA Blood Pressure : */* mmHG Vent. Rate : 107 BPM Atrial Rate : 107 BPM P-R Int : 172 ms QRS Dur : 160 ms QT Int : 382 ms P-R-T Axes : 48 45 16 degrees QTcB Int : 509 ms Sinus tachycardia Right bundle branch block can not rule out septal W[place] Abnormal ECG Confirmed by Julio Andrade ([id number]), news videotape editor HOMAR GRIJALVA ([id number]) on 09/08/2025 11:14:52 AM Referred By: Confirmed By: Julio Andrade
[2025-09-07] MEDS: Albuterol *CONC* 2.5mg/0.5mL VIAL.NEB. 10 MG INHALATION (22:38)
--- NOTE | 2025-09-07 22:44 | PCM.HP.STD ---
HPI - General General Date of Admission: 09/07/25 Date of Service: 09/07/25 Chief Complaint: Generalized weakness, missed dialysis HPI Narrative GURINDER HAHN, is a 50 M who presents to the emergency room with chief complaint of generalized weakness. Patient has significant past medical history of diabetes, atrial fibrillation, hypertension and chronic kidney disease for which she is on dialysis. Patient has missed his last 4 dialysis appointments including Sunday of last week and Sunday of today. Patient complains of feeling weak all over. He has mild nausea symptoms but no vomiting or diarrhea or fever and denies chest pain and headache at the present time. Patient has only been on dialysis for the past 1 year. Laboratory studies reveal white blood cell count 11.1, hemoglobin 8.4, hematocrit 27.4, platelets 241, sodium 133, potassium 6.7, chloride 97, bicarb 18, BUN 60, creatinine 8.79, glucose 348, chest x-ray no acute findings. Patient will be admitted to progressive care unit with telemetry and nephrology consult for dialysis. [facility] Medical History Anemia, unspecified Acute kidney failure, unspecified Obstructive and reflux uropathy, unspecified Polyneuropathy, unspecified Jean gangrene Debility Type 2 diabetes mellitus Decubitus ulcer of right buttock, stage 4 Home Medications ?Medication ?Instructions ?Recorded ?Last Taken ?Type apixaban 5 mg tablet (Eliquis) 5 mg PO BID 06/05/24 09/07/25 History bumetanide 1 mg tablet 1 mg PO BID 06/05/24 Unknown History gabapentin 300 mg capsule 300 mg PO DAILY 06/05/24 Unknown History glimepiride 4 mg tablet 8 mg PO DAILY 06/05/24 Unknown History insulin glargine 100 unit/mL (3 30 unit subcut QHS 06/05/24 Unknown History mL) subcutaneous pen (Lantus Solostar U-100 Insulin) insulin lispro 100 unit/mL 1 sliding scale dose subcut TID DM 06/05/24 Unknown History subcutaneous pen (Humalog KwikPen (U-100) Insulin) metoprolol succinate 100 mg 100 mg PO BID 06/05/24 Unknown History tablet,extended release 24 hr omeprazole 40 mg capsule,delayed 40 mg PO BID 06/05/24 Unknown History release rosuvastatin 10 mg tablet 10 mg PO DAILY 06/05/24 Unknown History acetaminophen 325 mg tablet 650 mg PO Q8H PRN pain 06/18/24 Unknown History sodium hypochlorite 0.25 % 1 applic topical BID 06/18/24 Unknown History solution (Dakin's Solution) Allergy/AdvReac Type Severity Reaction Status Date / Time ampicillin Allergy Unknown PT UNABLE Verified 09/07/25 19:54 TO RESPOND-NEEDS F/U Penicillins Allergy Unknown PT UNABLE Verified 09/07/25 19:54 TO RESPOND-NEEDS F/U lisinopril AdvReac Mild nausea Verified 09/07/25 19:54 Family History no significant family his Social History Smoking Status: Current some day smoker tobacco type: cigarettes ROS Constitutional Constitutional: Reports fatigue and weakness; Denies change in weight, chills or fever(s) Eyes Eyes: Denies blurry vision ENT HEENT: Denies abnormal hearing Cardiovascular Cardiovascular: Denies chest pain Respiratory/Chest Respiratory/Chest: Denies shortness of breath at rest Gastrointestinal Gastrointestinal: Reports nausea; Denies abdominal pain or vomiting Genitourinary Genitourinary: Denies dysuria Musculoskeletal Musculoskeletal: Denies back pain Integumentary Integumentary: Denies dry skin Neurologic Neurologic: Denies abnormal speech Psychiatric Psychiatric: Denies anxiety Vital Signs Vital Signs Vital Signs: 09/07/25 19:52 09/07/25 20:52 09/07/25 20:52 Temperature 98.6 F Temperature Source Oral Pulse Rate 100 96 Respiratory Rate 16 Respiratory Effort Normal Non-Labored Respiratory Pattern Normal Blood Pressure 186/166 H 196/102 H Blood Pressure Mean 172 133 Pulse Ox 96 Oxygen Delivery Method Room Air 09/07/25 21:00 09/07/25 21:13 09/07/25 22:15 Temperature Temperature Source Pulse Rate 97 Respiratory Rate 15 Respiratory Effort Respiratory Pattern Blood Pressure 196/102 H 180/130 H 202/112 H Blood Pressure Mean 133 146 142 Pulse Ox 98 Oxygen Delivery Method Weight Weight: 304 lb 10.861 oz Body Mass Index (BMI) 39.1 Physical Exam Const oriented x3 General Appearance: cooperative and well developed HEENT normocephalic and head/scalp atraumatic Eyes PERRL Neck no lymphadenopathy Lymph Lymphatic: no lymphadenopathy noted Resp normal respiratory effort, normal air movement and clear to auscultation bilaterally Cardio S1 normal heart sound, S2 normal heart sound and no murmurs Rhythm: abnormal rhythm irregularly irregular Extremity normal capillary refill General Extremity: edema bilateral lower extremity Details: trace Skin General Skin Exam: no breakdown Neuro no focal motor deficits and no sensory deficits noted Psych thought process normal, cooperative and affect normal Results Lab / Micro Data 09/07/25 21:15 09/07/25 21:15 Labs: Laboratory Results - last 24 hr 09/07/25 21:15: WBC 11.9 H, RBC 3.24 L, Hgb 8.4 L, Hct 27.4 L, MCV 84.6, MCH 25.9 L, MCHC 30.7 L, RDW Std Deviation 56.9 H, RDW Coeff of Adolfo 18.6 H, Plt Count 241, MPV 10.5, Immature Gran % (Auto) 1.200 H, Neut % (Auto) 72.3 H, Lymph % (Auto) 13.6 L, [place] % (Auto) 7.9, Eos % (Auto) 4.2, Baso % (Auto) 0.8, Absolute Neuts (auto) 8.6 H, Absolute Lymphs (auto) 1.62, Nucleated RBC % 0, Sodium 133, Potassium 6.7 H*, Chloride 97 L, Carbon Dioxide 18.0 L, Anion Gap 17 H, BUN 60 H, Creatinine 8.79 H*, Estim Creat Clear Calc 15.21 L, Est GFR (MDRD) Non-Af 7 L, BUN/Creatinine Ratio 6.8 L, Glucose 348 H, Calcium 8.6 Rhythm Strip Rhythm Strip: Sinus Rhythm Rate: 97 Ectopy: None Imaging Radiology Impression Chest X-Ray 09/07/25 21:12 IMPRESSION: NO ACUTE FINDINGS. Reading Location: [address] Assessment & Plan Assessment/Plan (1) Diabetes: (2) A-fib: (3) Chronic anemia: (4) End stage renal disease on dialysis: (5) Acute hyperkalemia: (6) Hypertension: PLAN: Plan 1 acute on chronic renal failure with generalized weakness?admit patient to progressive care unit, consult nephrology for dialysis, order repeat labs CBC BMP in a.m. patient 2.?Atrial fibrillation?rate controlled continue on anticoagulation 3. Acute hyperkalemia?patient received insulin and glucose, calcium gluconate and albuterol inhalation treatments in the emergency room will repeat BMP and recommend dialysis for further management 4. Hypertension?will add hydralazine 10 mg IV every 6 hours as needed blood pressure greater than 160/100 and continue routine antihypertensive therapy 5. Diabetes?will place patient on sliding scale insulin AC and at bedtime continue routine home medications will add A1c in a.m. labs patient will be on renal diet 6. DVT prophylaxis?patient is already on anticoagulation 7. CODE STATUS?full verified Charges/Coding Visit Charges Inpatient E&M: 78771 Init Hosp L2
[2025-09-07] MEDS: Calcium Gluconate IV 3 GM in Syringe 1 EACH IV (22:48)
[2025-09-07] MEDS: Insulin Lispro 10 UNIT in Syringe 0 ML 6 UNIT IV (22:53)
--- OUTSIDE RECORDS SUMMARY | 2025-09-07 23:22 | XMS RPT_ITS | CCD ---
Author Organization [facility] Inform ion Partnership [facility] Care Team Providers Care Commanding Officer Motorized Squad Name Role Phone Artie Jackson Primary Care Provider MANUEL SOLIS, DR ALVA Primary Care Physician Manuel SOLIS, Artie Valencia Primary Care Provider Manuel SOLIS, Artie Valencia Primary Care Provider Manuel SOLIS, Artie Valencia Primary Care Provider MANUEL SOLIS, DR ALVA Primary Care Physician JAIR PIZARRO-FOUNDER / CEO, [facility] Primary Care Physician Ledy Son Unavailable Unavailable CIARA VIGIL MD Consulting Unavailable TAMIKA SOLIS, CARMELO León Attending Unavailable JAIR GUTIÉRREZ, [facility] Primary Care Unavailab trish RICO MD, DR ILEANA Lara Admitting FRANCESCA Atkins MD Consulting Unavailable HUBER BROWNE MD, DR SON ALVARENGA Consulting Unavaila manav GUTIÉRREZ, [facility] Primary Care Unavailab trish ACUNA MD, MARTÍNEZ Attending Unavailable LINDA SOLIS, JOAN Consulting Unavailable WILLA RODARTE MD Consulting Unavailab le JAIR PIZARRO-FOUNDER / CEO, [facility] Primary Care Unavailab trish MALONE DO, MATHEW Attending Unavailable JAIR PIZARRO-FOUNDER / CEO, [facility] Primary Care Unavailab trish HOGAN DO, JIMENA Attending Unavailable JAIR PIZARRO-ABEBA, [facility] Primary Care Unavailab trish GALAN DO, SATNAM Rios Attending Unavailable SHELTON PIZARRO-BRAVO BAIRD Admitting Unavaila manav GUTIÉRREZ, [facility] Primary Care Unavailab trish ALLEN DO, DR JOHNSON Referring Unavailable KALEY POSEY, DR JOHNSON Attending Unavailable SARAH SOLIS FACP, CATHERINE León Consulting Unavail able JAIR GALLEGOFOUNDER / CEO, [facility] Primary Care Unavailab Kemi SOLIS, DR VALLE Consulting Unavailab trish HOGAN DO, JIMENA Attending Unavailable SHELTON DIRECTOR OF OPERATIONS-REGULATORY AFFAIRS INTERN, BRAVO Ornelas Consulting Unavailvernon ADAM APRN-FOUNDER / CEO, [facility] Primary Care Unavailab trish JOHNSON MD, DR [...] LINDA SOLIS, JOAN Admitting Unavailable JAIR GUTIÉRREZ, [facility] Care Unavailab Dougie SOLIS, VIANCA Attending Unavailable [...] Unavailable JAIR GUTIÉRREZ, PHOEBE Consulting Unavailab Elsy SOLIS, DR ORTEGA Consulting Unavailable Pao SOLIS, Garrick Harris Unavailable [phone] Jose Morrison MD Unavailable [phone] Manpreet ADAMS, Maria Elena Ornelas Unavailable Unavailable JAIR PIZARRO-FOUNDER / CEO, [facility] Care Unavailab trish WILLIAM MD, VIRIDIANA Admitting Unavailable ORALIA SAMUELS MD Attending Unavailable RITIKA CURTIS Consulting UnavailGABRIELA Craig MD Consulting Unavailable KAREN SOLSI, BOB Harkins Consulting Unavailable LUIS DANIEL SOLIS, CORAL Consulting Unavailable JR SOLIS, TU Cooper Consulting Unavailable RHONDA SOLIS, MARJAN Consulting Unavailable STEWART SOLIS, VIRIDIANA Consulting Unavailable JAIR DIRECTOR OF OPERATIONS-FOUNDER / CEO, [facility] Primary Care Unavailab JIMENA Fraire DO Attending Unavailable [facility] Care Unavailable Arun FOUNDER / CEO, Janel E Attending Unavailabl e Arun FOUNDER / CEO, Janel E Referring Unavailabl e Siska, Milvia Consulting Unavailable Mary Alice Evangelista Attending Unavailable Jair FOUNDER / CEO, [facility] Care Unavailable Jair FOUNDER / CEO, [place] Primary Care Unavailable Madan Charles Attending Unavailable [...] Attending Unavailable Barby Webster Referring Unavailable Jair FOUNDER / CEO, [place] Primary Care Unavailable [facility] Satnam Primary Care Unavailable Barby Webster Attending Unavailable Arun FOUNDER / CEO, Janel E Referring Unavailabl e Galan, Satnam Primary Care Unavailable Arun FOUNDER / CEO, Janel Rios Attending Unavailabl e Siska, Milvia Consulting Unavailable Arun FOUNDER / CEO, Janel E Referring Unavailabl e Galan, Satnam Primary Care Unavailable Arun FOUNDER / CEO, Janel E Attending Unavailabl e Siska, Milvia Consulting Unavailable GALAN, SATNAM Referring Unavailable GARRICK VELASQUEZ Attending Unavailable MANUEL, ARTIE Primary Care Unavailable PHOEBE ADAM Attending Unavailable MANUEL, ARTIE Primary Care Unavailable SHREYA OLIVERA Attending Unavailable MANUEL, ARTIE Primary Care Unavailable MANUEL, ARTIE Primary Care Unavailable JOSE MORRISON Admitting Unavailable JOSE MORRISON Attending Unavailable GARRICK VELASQUEZ Attending Unavailable GARRICK VELASQUEZ Referring Unavailable MANUEL, ARTIE Primary Care Unavailable JOSE MORRISON Attending Unavailable PHOEBE ADAM Referring Unavailable MANUEL, ARTIE Primary Care Unavailable Allergies Allergy Classification Reported Allergen(s) Allergy Type Date of Onset Reaction(s) Facility (20 sources) Ampicillin; Translations: [ampicillin] Drug Allergy 08-27-20 [facility] [place] Comment on above: Patient has tolerate d Zosyn (4 sources) Penicillins Propensity to adverse reactions to drug 08-27-20 [facility], [place] (6 sources) Penicillin; Translations: [penicillins] Drug Allergy [facility] (20 sources) Penicillins Drug Intolerance 08-27-20 17 [facility] (20 sources) dulaglutide Drug Allergy 10-03-20 23 Nausea And Vomiting [facility] Work Phone: (6 sources) Penicillin; Translations: [penicillins] Drug Allergy Unknown [facility] Comment on above: Patient has tolerate d Zosyn has tolerated admini stration of IV Zosyn during hospitilization 04/17/24 (1 source) Ampicillin Drug Allergy 06-18-20 [facility] (1 source) Penicillins Drug allergy (disorder) 06-18-20 [facility] Medications Current Medications Medication Drug Class(es) [...] qDay, # 30 tab(s), 0 Refill(s), Pharmacy: [facility]/pharmacy #[id number], 188, cm, 02/10/25 1:33:00 EDT, Height, kg, 02/15/25 5:52:00 EDT, Dosing Weight Start Date: 02/15/25 Status: Ordered Quantity: 30.0 Unit: tab(s) Repeat number: 1 Start: 03-11-2024 End: 06-16-2025 amLODIPine 10 mg oral tablet Dose : 10 mg = 1 tab(s), Oral, qDay, # 30 tab(s), 0 Refill(s), [facility][id number], 188, cm, 03/08/24 16:58:00 EDT, Height, kg, [...] BID, # 60 tab(s), 4 Refill(s), Pharmacy: [facility] #[id number], 187, cm, 05/08/24 5:24:00 EDT, Height, 114.4, kg, 05/08/24 5:24:00 EDT, Dosing Weight Start Date: 05/15/24 Stop Date: 10/12/24 Status: Ordered Quantity: 60.0 Unit: tab(s) Repeat number: 5 Blood Glucose Monitoring Suppl (TRUE METRIX METER) [facility] (4 sources) Start: 03-12-2020 Blood Glucose Monitoring Suppl (TRUE METRIX METER) OLIVIA Indications: Type 2 diabetes mellitus with diabetic polyneuropathy, without long-term current use of insulin ([facility]) 1 kit by Does not apply route [...] BIDM, # 60 tab(s), 0 Refill(s), Pharmacy: [facility]/pharmacy #[id number], 188, cm, 02/10/25 1:33:00 EDT, Height, kg, [...] Refill(s), 07/09/24 11:25:00 AM EDT, Pharmacy: [facility] #[id number], 188, cm, 06/18/24 18:59:00 EDT, Height, 109.5, kg, 06/18/24 18:59:00 EDT, Dosing Weight Start Date: 06/25/24 Stop Date: 07/09/24 Status: Ordered Start: 05-02-2024 End: 05-28-2024 cefdinir 300 mg oral capsule Dose : 300 mg = 1 cap(s), Oral, BID, X 13 day(s), # 26 cap(s), 0 Refill(s), 05/28/24 11:46:00 AM EDT, Pharmacy: [facility] #[id number], 187, cm, 05/08/24 5:24:00 EDT, Height, 114.4, [...] >160, # 42 tab(s), 0 Refill(s), Pharmacy: [facility]/pharmacy #[id number], 188, cm, 02/10/25 1:33:00 EDT, Height, kg, [...] Stop Date: 04/20/24 Status: Ordered Continuous Glucose Sustainable Development Policy Analyst (FreeStyle Yanni 3 Voca) device (20 sources) Start: 09-22-2024 Continuous Glucose Sustainable Development Policy Analyst (FreeStyle Yanni 3 Voca) device Indications: Diabetes mellitus with proteinuria (HCC) , Type 2 diabetes mellitus with diabetic polyneuropathy, with long-term current use of insulin (HCC) Use as directed 1 each 09/22/2024 Active Start: 09-22-2024 Continuous Glu cose Sustainable Development Policy Analyst (FreeStyle Yanni 3 Voca) device Indications: 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) , Type 2 diabetes mellitus with diabetic polyneuropathy, with long-term current use of insulin (HCC) Use as directed 1 each 09/22/2024 Active Continuous Glucose Sensor (FreeStyle Yanni 3 Sensor) mis (20 sources) Start: 04-28-2025 Continuous Glu cose Sensor (FreeStyle Yanni 3 Sensor) [facility] Indications: Diabetes mellitus with proteinuria (HCC) , Type 2 diabetes mellitus with diabetic polyneuropathy, with long-term current use of insulin (HCC) every 14 (fourteen) days. 2 each 04/28/2025 Active Start: 04-28-2025 Continuous Glu cose Sensor (FreeStyle Yanni 3 Sensor) [facility] Indications: 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) , Type 2 diabetes mellitus with diabetic polyneuropathy, with long-term current use of insulin (HCC) every 14 (fourteen) days. 2 each 04/28/2025 Active Start: 11-10-2024 End: 04-27-2025 Continuous Glucose Sensor (F reeStyle Yanni 3 Sensor) [facility] Indications: 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) , Type 2 diabetes mellitus with diabetic polyneuropathy, with long-term current use of insulin (HCC) every 14 (fourteen) days. 2 each 11/10/2024 04/27/2025 Discontinued (Reorder) Start: 11-10-2024 Continuous Glu cose Sensor (FreeStyle Yanni 3 Sensor) [facility] Indications: 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) , Type 2 diabetes mellitus with diabetic polyneuropathy, with long-term current use of insulin (HCC) every 14 (fourteen) days. 2 each 11/10/2024 Active Start: 09-22-2024 Continuous Glu cose Sensor (FreeStyle Yanni 3 Sensor) [facility] Indications: Diabetes mellitus with proteinuria (CMS/HCC) (HCC) [...] associated with type 2 diabetes mellitus (CMS/HCC) ([facility]) take 2 capsules by mouth every evening [...] polyneuropathy, without long-term current use of insulin ([facility]) Take 2 capsules by mouth nightly for [...] polyneuropathy, without long-term current use of insulin ([facility]) Take 1 capsule by mouth nightly for 30 days. 30 capsule 2 05/03/2020 06/02/2020 Active glimepiride 4 mg oral tablet (20 sources) Sulfonylurea Start: 04-24-2025 take 2 tablets by mouth once daily at breakfast glimepiride (Amaryl) 4 MG tablet Indications: Type 2 diabetes mellitus with diabetic polyneuropathy, with long-term current use of insulin ([facility]) TAKE 2 TABLETS (8 MG) BY MOUTH DAILY (WITH BREAKFAST). 180 tablet 1 04/24/2025 Active Start: 10-24-2024 take 2 tablets by mo uth once daily at breakfast glimepiride (Amaryl) 4 MG tablet Indications: Type 2 diabetes mellitus with diabetic polyneuropathy, with long-term current use of insulin ([facility]) Take 2 tablets (8 mg) by mouth [...] polyneuropathy, with long-term current use of insulin ([facility]) Take 2 tablets (8 mg) by mouth every morning (before breakfast). 180 tablet 1 12/14/2023 Active Start: 11-14-2022 End: 05-07-2023 take 2 tablets by mouth once daily before breakfast glimepiride (Amaryl) 4 MG tablet Indications: Type 2 diabetes mellitus with diabetic polyneuropathy, with long-term current use of insulin ([facility]/HCC) ([facility]) take 2 tablets by mouth every morning [...] polyneuropathy, with long-term current use of insulin ([facility]) , Diabetes mellitus with proteinuria (CMS/HCC) (HCC) ([facility]) inject 14 units subcutaneously in the morning. 06/24/2025 Active Start: 06-16-2025 inject 10 [IU] by berry bcutaneous injection in the morning Lantus SoloStar 100 UNIT/ML pen Indications: Type 2 diabetes mellitus with diabetic polyneuropathy, with long-term current use of insulin ([facility]) , Diabetes mellitus with proteinuria (CMS/HCC) (HCC) ([facility]) inject 10 units subcutaneously in the morning. 3 mL 3 06/16/2025 Active Start: 09-24-2024 End: 06-16-2025 Lantus SoloStar 100 UNIT/ML pen Indications: Diabetes mellitus with proteinuria (CMS/HCC) (HCC) ([facility]) , Type 2 diabetes mellitus with diabetic polyneuropathy, with long-term current use of insulin ([facility]) inject 16 units subcutaneously nightly 09/24/2024 06/16/2025 [...] qHS, # 15 mL, 0 Refill(s), Pharmacy: [facility] #[id number], 188, cm, 03/08/24 16:58:00 EDT, Height, kg, 03/08/24 16:58:00 EDT, Dosing Weight Start Date: 03/20/24 Status: Ordered Start: 03-11-2024 inject 1 dose by sub cutaneous injection once daily at bedtime Lantus 100 units/mL10 ml vial solution Dose : 30 unit(s) =, Subcutaneous, qHS, # 15 mL, 0 Refill(s), Pharmacy: [facility] #[id number], 188, cm, 03/08/24 16:58:00 EDT, Height, kg, 03/08/24 16:58:00 EDT, Dosing Weight Start Date: 03/11/24 Status: Ordered Start: 06-06-2023 End: 09-22-2024 Lantus SoloStar 100 UNIT/ML pen Indications: Diabetes mellitus with proteinuria (CMS/HCC) (HCC) ([facility]) , Type 2 diabetes mellitus with diabetic polyneuropathy, with long-term current use of insulin ([facility]) inject 14 units subcutaneously every morning 09/22/2024 Active Start: 04-13-2023 End: 05-14-2023 inject 14 [IU] by subcutaneous injection once daily in the morning, then inject 14 [IU] by subcutaneous injection once daily in the evening Lantus SoloStar 100 UNIT/ML pen Indications: Type 2 diabetes mellitus with diabetic polyneuropathy, with long-term current use of insulin (CMS/HCC) ([facility]) , Diabetic polyneuropathy associated with type 2 diabetes mellitus (CMS/HCC) (HCC) , Diabetes mellitus with proteinuria (CMS/HCC) ([facility]) inject 14 units subcutaneously every morning and 14 units every evening 3 mL 1 05/14/2023 Active Start: 07-05-2022 End: 04-13-2023 Lantus SoloStar 100 UNIT/ML pen Indications: Type 2 diabetes mellitus with diabetic polyneuropathy, with long-term current use of insulin (CMS/HCC) (HCC) , Diabetic polyneuropathy associated with type 2 diabetes mellitus (CMS/HCC) (HCC) , Diabetes mellitus with proteinuria (CMS/HCC) ([facility]) inject 12 units subcutaneously every morning and 14 units EVERY EVENING Strength: 100 UNIT/ML 3 mL 1 01/08/2023 Active Start: 05-02-2019 End: 06-01-2019 inject 0.2 mL by subcutaneous injection once daily at bedtime Lantus 100 units/mL10 ml vial solution Dose : 20 unit(s) = 0.2 mL, Subcutaneous, qHS, # 6 mL, 0 Refill(s), Pharmacy: [facility] Start Date: 05/02/19 Stop [...] 0 Refill(s), 07/09/24 11:25:00 AM EDT, [facility][id number], 188, cm, 06/18/24 18:59:00 EDT, Height, 109.5, [...] 05/28/24 11:47:00 AM EDT, Pharmacy: [facility] #[id number], 187, cm, 05/08/24 5:24:00 EDT, Height, 114.4, [...] release tablet 5 mg polyethylene glycol 3350 [id number] mg powder for oral solution (20 sources) [...] polyneuropathy, with long-term current use of insulin ([facility]/HCC) ([facility]) Inject 0.25 mg under the skin 1 (one) time per week. 1 each 0 05/28/2023 Active SITagliptin 50 mg oral tablet (17 sources) Dipeptidyl Peptidase 4 Inhibitor Start: 08-29-2022 End: 05-28-2023 Januvia 50 MG tablet Indications: Type 2 diabetes mellitus with diabetic polyneuropathy, with long-term current use of insulin ([facility]) ([facility]) , Diabetic polyneuropathy associated with type 2 diabetes mellitus ([facility]/HCC) ([facility]) , Diabetes mellitus with proteinuria (CMS/[facility]) ([facility]) Take 1 tablet (50 mg) by mouth [...] 60 tab(s), 2 Refill(s), Pharmacy: [facility] #[id number], 187, cm, 05/08/24 5:24:00 EDT, Height, kg, [...] polyneuropathy, with long-term current use of insulin ([facility]) ([facility]) , Class 2 obesity due to excess [...] BID, # 60 tab(s), 0 Refill(s), Pharmacy: [facility] Start Date: 05/02/19 Stop Date: [...] 06-22-2021 06-22-2021 Episodic Other aftercare (2 sources) halfway (current) use of insulin; 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 Normal [facility] Dialysis Vein Map PRE-OP SULAIMAN ATon 08-27-2025 Dialysis Vein Map PRE-OP BILAT [facility] [address] [place] [address] Dialysis Vein Map PRE-OP BILAT 08/27/25 0959 MR#: [id number] Acct: [id number] Name: GURINDER HAHN Rep #: [id number] : 1975 50 From: Madan Charles MD Attending Dr: Dr. Barby Webster MD Status: RE G CLI Ordering Dr: Barby Webster MD Date: 08/27/25 Location: [facility] Sex: M C Admitted: Reason For Study [...] 08/27/25 1418 Date Madan Charles MD CC: FOUNDER / CEO-C Phoebe Adam; Dr. Barby Webster MD Date Dictated: 08/27/25958 Date Transcribed: 08/27/251417 Patent Legal Assistant: Signed [facility] 3608-13-2025 36 S: Patient spoke wit [...] performed with Mike Olivera NP - per FOUNDER / CEO patient can be seen in office on [...] 1 hour Protocols used: Leg Swelling and Wvaec-QLGTA-IN [facility] 36on 07-13-2025 36 Reviewed chart. Refi ll not appropriate, too soon. RX refused [facility] 36 Reviewed chart. Refi ll not appropriate, too soon. RX refused [facility] 36 Sent 02/17/25 90 and 1 refill Pt should still have 30 days of medication left Please refuse mediction [facility] 36 Acetaminophen sent i n 07/09/25 60 tablets 3 refills Hysralazine sent 06/16/25 270 tablets Please refuse both meds [facility] 36on 07-09-2025 36 Prescription Request : Last medication check: 06/16/25 Last physical exam: 2020 Next scheduled appointment: 09/15/25 Last date of refill on this medication 06/12/25 60 tablets no refill [facility] 36on 06-18-2025 36 Spoke with pharmacy Please send in new RX for the Quik Pen. Pended new rx please verify correct order/dose. Also pended pen tips. [facility] 36on 06-16-2025 36 The pen [facility] 36 Name of caller: DINA Contact phone number: [phone] Relationship to Patient: Pharmacy Provider: Practice: [facility] [...] business hours to return their call: no [facility] 37on 06-16-2025 37 We can make adjustme nts to insulin every 3 days. Please send in fasting and 2 hour post meal glucose readings every 3 days. [facility] Office Visiton 06-16-2025 Follow-up visit [id number] Gurinder Hahn 1975 M Date Provider Department Center 06/16/2025 [id number] OLIVERA [facility] Family History Adopted: Yes Problem Relation Age of Onset No Known Problems Mother High Blood Pressure Father Heart disease Father COPD Father Diabetes Father Family Status - Relation Status Age at Mother Father Level of Service:65857 [place] OFFICE/OUTPATIENT ESTABLISHED MOD MDM 30 MIN Reason for Visit and Comments: Diabetes [34] [facility] Progress Noteon 06-16-2025 Progress Note Recommend continue t o monitor. Warm compresses couple times a day to promote drainage. Advised to follow-up if increased swelling or redness or pain occurs. Normal [facility] Progress Note Poorly controlled. C heck hemoglobin A1c today. Restart Lantus at 10 units daily, Humalog 5 units with meals 3 times a day. Send glucose readings every 3 days for titration of insulin Normal [facility] Progress Note Stable. Restart metoprolol XL at 25 mg daily Normal [facility] Progress Note Managed by nephrology. Normal [facility] Progress Note Control unknown. Rashmi ck hemoglobin A1c. Normal [facility] Progress Note Initial elevated. Re sume hydralazine 50 mg 3 times daily, metoprolol 25 mg XL daily. Hold hydralazine on days of dialysis Normal [facility] Progress Note Continue fenofibrate 145 mg daily, rosuvastatin 10 mg daily. Normal [facility] Progress Note Restart mack Blackburn back on the metoprolol XR at 25 mg daily [facility] Progress Note 06/16/2025 Gurinder Hahn (: 1975) is a 50 y.o. male , Established patient, here for evaluation of the following chief complaint(s): Diabetes ASSESSMENT/PLAN: 1. Type 2 diabetes mellitus with diabetic polyneuropathy, with long-term current use of insulin ([facility]) Assessment & Plan: Poorly controlled. Check hemoglobin [...] Normal 2. Chronic renal disease, stage IV ([facility]) Assessment & Plan: Managed by nephrology. Orders: - Basic metabolic panel 3. Low hemoglobin - CBC auto differential 4. Cardiomyopathy, unspecified type ([facility]) Assessment & Plan: Stable. Restart metoprolol XL [...] pain occurs. [facility]. SUBJECTIVE/OBJECTIVE: [facility] - Gurinder Hahn (: 1975) is [...] a CGM up until recently, needs to pickle sorter his new sensors. Reports his sugars have been in the high 200s and denies any hypoglycemic episodes. It drinking more water and trying to watch what he is eating. M,W,F- dialysis in [place]. Is tired after dialysis Goes Jun 23 [...] SpO2: 9 (more content not included)... Normal [facility] Progress Note Patient was identifi ed by name and Date of . Health Maintenance Due Topic Echocardiogram- Diabetes: Dental Exam- Diabetes: Retinopathy Screening- Normal [facility] 36on 06-12-2025 36 Reviewed chart. Refi ll appropriate. RX sent. [facility] 36 Reviewed chart. Refi ll appropriate. RX sent. [facility] 36 Prescription Request : Last medication check: 09/22/24 Last physical exam: 2020 Next scheduled appointment: 06/16/25 Last date of refill on this medication 05/21/25 60 tablets no refills [place] [address] Prescription Request : Last medication check: 09/22/24 Last physical exam: 2020 Next scheduled appointment: 06/16/25 Last date of refill on this medication 01/29/25 30 tablets [address] 06-10-2025 36 Rx sent for enough tablets to last him until his upcoming appointment on 06/16/25. OARRS report reviewed with no discrepancies. CSA signed September 2024. [address] 06-04-2025 36 Scheduled 06/08/[address] 05-25-2025 36 Unable to fill prescription. This is considered a controlled substance. Patient has not been seen in office since September 2024. Has canceled multiple appointments. Recommend he follow-up as he is scheduled [place] [address] Prescription Request : Last medication check: 09/22/24 Last physical exam: 01/08/23 Next scheduled appointment: 06/08/25 CSA on file (date): 09/22/24 Last urine drug screen: NA Last date of refill on this medication 04/27/[address] 05-21-2025 36 Reviewed chart. Refi ll appropriate. RX sent. [place] [address] Prescription Request : Last medication check: 09/22/24 Last physical exam: 01/08/23 Next scheduled appointment: 06/08/25 Last date of refill on this medication 04/16/25 60 tablets no refills [address] 05-04-2025 36 Noted. Thank you. [place] [address] Luz I just wanted you to be aware of this - Gabapentin refused by Dr Jackson due to pt needs to be seen. LM and sent mychart message to pt to be sure to come in for 05/13/25 appt [place] [address] Lm and sent mychart message that script will not be sent until pt is seen. [address] 04-28-2025 36 Prescription Request : Continuous Glucose Sensor (FreeStyle Yanni 3 Sensor) [facility] Last medication check: none Last physical exam: none Next scheduled appointment: 05/13/25 Last date of refill on this medication 11/10/24 ( qty 2 refill 5) [address] 04-27-2025 36 Already refilled prescription in a separate encounter. [facility] 36 Rx sent. OARRS repor t reviewed with no discrepancies. CSA signed in September 2024. Follow up as scheduled. [place] [id number] Prescription Request : GABAPENTIN 300 MG CAPSULE Last medication check: 09/22/24 ? Last physical exam: None Next scheduled appointment: 05/13/25 CSA on file (date): 02/27/25 Last date of refill on this medication 03/26/25 ( qty 30 refill 0) [address] 04-24-2025 36 Rx sent. Follow up a s scheduled. [address] 04-23-2025 36 Refused, needs to be seen [place] [address] Prescription Request : Last medication check: 09/22/24 Last physical exam: 2020 Next scheduled appointment: 05/13/25 CSA on file (date): 09/22/24 Last urine drug screen: none Last date of refill on this medication 03/26/25 30 and no refill [facility] [id number] 04-16-2025 [id number] Pended a Chorhexidin e gluconate dressing [address] 04-16-2025 36 Rx sent [place] [address] FYI-This is the 2nd [employer] message sent. [place] [address] This medication was sent to [facility] 03/16/25 with 5 refills [place] [address] Prescription Request : Last medication check: 09/22/24 Last physical exam: none Next scheduled appointment: 05/13/25 Last date of refill on this medication 02/17/25 60 tablets no refill [address] 04-14-2025 36 Called the patient---informed him [...] be here in order to continue meds. [place] [address] Refused. Needs to be seen. [place] [address] Prescription Request : Last medication check: 09-22-24 Last physical exam: n/a Next scheduled appointment: none The patient has cancelled the last 8 appointments that have been scheduled CSA on file (date): 09-22-24 Last urine drug screen: none Last date of refill on this medication 03-26-[address] 03-26-2025 36 Rx sent, OARRS repor t done, no inconsistencies, CS agreement in place [place] [address] Prescription Request : GABAPENTIN 300 MG CAPSULE Last medication check: 09/22/24 Last physical exam: none Next scheduled appointment: none CSA on file (date): 02/27/25 Last date of refill on this medication 02/27/25 ( qty 30 refill 0) [address] 03-16-2025 36 Rx sent. Follow up a s scheduled. [place] [address] Prescription Request : OMEPRAZOLE DR 40 MG CAPSULE Last medication check: 09/22/24 Last physical exam: none Next scheduled appointment: 03/19/25 ( physical Last date of refill on this medication 12/08/24 ( qty 60 refill 2) [facility] BUN 03-16-2025 Urea nitrogen [Mass/Vol] 23 mg/dL High 4- [facility] Comment on above: Performed By: #### L 501.5300, L501.2300, L501.6100, L100.0100, L501.5600, L501.1000, L501.1105, L501.5900 #### [facility] [address] [place], [address] CBC W/Diff, Automatedon 04- Absolute Lymph 1.95 X10 3/uL Normal 0.83-4.51 [facility] Comment on above: Performed By: #### L 501.5300, L501.2300, L501.6100, L100.0100, L501.5600, L501.1000, L501.1105, L501.5900 #### [facility] [address] [place], [address] Absolute Neut 7.0 X10 3/uL Normal 2.0-7.7 [facility] Comment on above: Performed By: #### L 501.5300, L501.2300, L501.6100, L100.0100, L501.5600, L501.1000, L501.1105, L501.5900 #### [facility] [address] [place], [address] Basophils/100 WBC (Bld) 0.7 % Normal 0-1 [facility] Comment on above: Performed By: #### L 501.5300, L501.2300, L501.6100, L100.0100, L501.5600, L501.1000, L501.1105, L501.5900 #### [facility] [address] [place], [address] Eosinophils/100 WBC (Bld) 4.9 % Normal 0-5 [facility] Comment on above: Performed By: #### L 501.5300, L501.2300, L501.6100, L100.0100, L501.5600, L501.1000, L501.1105, L501.5900 #### [facility] [address] [place], [address] Erythrocyte distribution width (RBC) [Ratio] 18.7 % High 11.6-14.6 [facility] Comment on above: Performed By: #### L 501.5300, L501.2300, L501.6100, L100.0100, L501.5600, L501.1000, L501.1105, L501.5900 #### [facility] [address] [facility] [place], [address] Hematocrit (Bld) [Volume fraction] 29.1 % Low 40-54 [facility] Comment on above: Performed By: #### L 501.5300, L501.2300, L501.6100, L100.0100, L501.5600, L501.1000, L501.1105, L501.5900 #### [facility] [address] [facility] [place], [address] (882) Hemoglobin (Bld) [Mass/Vol] 9.0 g/dL Low 13.0-16.5 [facility] Comment on above: Performed By: #### L 501.5300, L501.2300, L501.6100, L100.0100, L501.5600, L501.1000, L501.1105, L501.5900 #### [facility] [address] [facility] [place], [address] IG% 1.100 High 0.0-0.9 [facility] Comment on above: Result Comment: IG% - Immature Granulocytes (promyelocytes, myelocytes and metamyelocytes) > 1% indicates that a LEFT SHIFT is Present. Performed By: #### L 501.5300, L501.2300, L501.6100, L100.0100, L501.5600, L501.1000, L501.1105, L501.5900 #### [facility] [address] [facility] [place], [address] Lymphocytes/100 WBC (Bld) 18.2 % Low 19-41 [facility] Comment on above: Performed By: #### L 501.5300, L501.2300, L501.6100, L100.0100, L501.5600, L501.1000, L501.1105, L501.5900 #### [facility] [address] [place], [address] MCH (RBC) [Entitic mass] 25.1 pg Low 27.0-32.0 [facility] Comment on above: Performed By: #### L 501.5300, L501.2300, L501.6100, L100.0100, L501.5600, L501.1000, L501.1105, L501.5900 #### [facility] [address] [place], [address] MCHC (RBC) [Mass/Vol] 30.9 g/dL Low 32-36 [facility] Comment on above: Performed By: #### L 501.5300, L501.2300, L501.6100, L100.0100, L501.5600, L501.1000, L501.1105, L501.5900 #### [facility] [address] [place], [address] MCV (RBC) [Entitic vol] 81.3 fL Normal 80-94 [facility] Comment on above: Performed By: #### L 501.5300, L501.2300, L501.6100, L100.0100, L501.5600, L501.1000, L501.1105, L501.5900 #### [facility] [address] [place], [address] Monocytes/100 WBC (Bld) 9.3 % Normal 0-10 [facility] Comment on above: Performed By: #### L 501.5300, L501.2300, L501.6100, L100.0100, L501.5600, L501.1000, L501.1105, L501.5900 #### [facility] [address] [place], [address] Neutrophils/100 WBC (Bld) 65.8 % Normal 47-70 [facility] Comment on above: Performed By: #### L 501.5300, L501.2300, L501.6100, L100.0100, L501.5600, L501.1000, L501.1105, L501.5900 #### [facility] [address] [place], [address] Nucleated RBC (Bld) [#/Vol] 0 10*3/uL Normal 0-5 [facility] Comment on above: Performed By: #### L 501.5300, L501.2300, L501.6100, L100.0100, L501.5600, L501.1000, L501.1105, L501.5900 #### [facility] [address] [facility] [place], [address] Platelet mean volume (Bld) [Entitic vol] 10.9 fL Normal 6.2-12.0 [facility] Comment on above: Performed By: #### L 501.5300, L501.2300, L501.6100, L100.0100, L501.5600, L501.1000, L501.1105, L501.5900 #### [facility] [address] [facility] [place], [address] Platelets (Bld) [#/Vol] 272 10*3/uL Normal 150-450 [facility] Comment on above: Performed By: #### L 501.5300, L501.2300, L501.6100, L100.0100, L501.5600, L501.1000, L501.1105, L501.5900 #### [facility] [address] [place], [address] RBC (Bld) [#/Vol] 3.58 10*6/uL Low 4.6-6.2 [facility] Comment on above: Performed By: #### L 501.5300, L501.2300, L501.6100, L100.0100, L501.5600, L501.1000, L501.1105, L501.5900 #### [facility] [address] [place], [address] RDW SD 55.2 fl High 35.1-43.9 [facility] Comment on above: Performed By: #### L 501.5300, L501.2300, L501.6100, L100.0100, L501.5600, L501.1000, L501.1105, L501.5900 #### [facility] [address] [place], [address] WBC (Bld) [#/Vol] 10.7 10*3/uL Normal 4.4-11.0 [facility] Comment on above: Performed By: #### L 501.5300, L501.2300, L501.6100, L100.0100, L501.5600, L501.1000, L501.1105, L501.5900 #### [facility] [address] [place], [address] Carbon Dioxideon 03-16-2025 CO2 [Moles/Vol] 23.7 mmol/L Normal 21.0-32.0 [facility] Comment on above: Performed By: #### L 501.5300, L501.2300, L501.6100, L100.0100, L501.5600, L501.1000, L501.1105, L501.5900 #### [facility] [address] [place], [address] Chlorideon 03-16-2025 Chloride [Moles/Vol] 98 mmol/L Normal 98-108 [facility] Comment on above: Performed By: #### L 501.5300, L501.2300, L501.6100, L100.0100, L501.5600, L501.1000, L501.1105, L501.5900 #### [facility] [address] [place], [address] Phosphoruson 03-16-2025 Phosphate [Mass/Vol] 3.7 mg/dL Normal 2.7-4.5 [facility] Comment on above: Performed By: #### L 501.5300, L501.2300, L501.6100, L100.0100, L501.5600, L501.1000, L501.1105, L501.5900 #### [facility] [address] [place], [place], [id number] Potassiumon 03-16-2025 Potassium [Moles/Vol] 4.2 mmol/L Normal 3.3-5.1 [facility] Comment on above: Performed By: #### L 501.5300, L501.2300, L501.6100, L100.0100, L501.5600, L501.1000, L501.1105, L501.5900 #### [facility] [address] [facility] [place], [place], [id number] Serum Creatinine AND GFRon 0 03-16-2025 Creatinine [Mass/Vol] 3.25 mg/dL High 0.70-1.20 [facility] Comment on above: Performed By: #### L 501.5300, L501.2300, L501.6100, L100.0100, L501.5600, L501.1000, L501.1105, L501.5900 #### [facility] [address] [facility] [place], [place], [id number] GFR/1.73 sq M.predicted among non-blacks MDRD (S/P/Bld) [Vol rate/Area] 23 mL/min/{1.73_m2} Low >60 [facility] Comment on above: Result Comment: mL/m in/1.73m2 CKD-EPI Creatinine Equation (2020) Performed By: #### L 501.5300, L501.2300, L501.6100, L100.0100, L501.5600, L501.1000, L501.1105, L501.5900 #### [facility] [address] [place], [address] Sodium Levelon 03-16-2025 Sodium [Moles/Vol] 137 mmol/L Normal 133-145 [facility] Comment on above: Performed By: #### L 501.5300, L501.2300, L501.6100, L100.0100, L501.5600, L501.1000, L501.1105, L501.5900 #### [facility] [address] [place], [address] [id number] 02-27-2025 [id number] I called pt and he h as already been scheduled for 03/10/25 with Luz [facility] 36on 02-27-2025 36 Noted. Thank you. [place] [address] Please reach out and assist in getting an appointment scheduled. I cannot provide recommendations without knowing current medications and doses. He is past due for physical and would prefer this to be scheduled as a physical. [facility] 36 Scheduled for 03/10 @3:20pm pt states he's in Dialysis m-w-f and his gf doesn't get out of work until 3pm ( she's his ride) he maybe a little late. [place] [address] MyChart messaged pt refill was sent in and to schedule Physical [place]. Will call when appropriate. [place] [address] Rx sent. OARRS repor t reviewed with no discrepancies. CSA signed September 2024. Needs to schedule a physical in the office [place]. Has not been seen in the office since September. [place] [address] Prescription Request : GABAPENTIN 300 MG CAPSULE Last medication check: 09/22/24 Last physical exam: Doesn't look like he's had one with us. Next scheduled appointment: none CSA on file (date): 09/22/24 Last urine drug screen: 09/22/24 Last date of refill on this medication 01/27/25 ( qty 30 refill 0) [facility] 36on 02-17-2025 36 Refused, gabapentin is not due until the [place] [address] Rx sent Normal [facility] 36 Prescription Request : Last medication check: 09/22/2024 Last physical exam: none Next scheduled appointment: none CSMA: 09/22/2024 Last date of refill on this medication: Normal [facility] 36 Prescription Request : Last medication check: 09/22/2024 Last physical exam: none Next scheduled appointment: none Last date of refill on this medication: Tylenol: 12/22/2024 Rosuvastatin: Normal [facility] .Auto Diffon 02-15-2025 Basophil, Absolute 0.0 10 3/mcL Normal 0.0-0.3 [facility] Comment on above: Performed By: #### C BC, GFR, ANEU, BMP, ADIFF #### [address] [address] Basophils/100 WBC (Bld) 0.2 % Normal 0.0-2.5 [facility] Comment on above: Performed By: #### C BC, GFR, ANEU, BMP, ADIFF #### [address] [address] Eosinophil, Absolute 0.0 10 3/mcL Normal 0.0-0.7 [facility] Comment on above: Performed By: #### C BC, GFR, ANEU, BMP, ADIFF #### [address] [address] Eosinophils/100 WBC (Bld) 0.0 % Normal 0.0-6.0 [facility] Comment on above: Performed By: #### C BC, GFR, ANEU, BMP, ADIFF #### [address] [address] Lymphocyte, Absolute 0.7 10 3/mcL Low 0.9-4.3 [facility] Comment on above: Performed By: #### C BC, GFR, ANEU, BMP, ADIFF #### [address] [address] Lymphocytes/100 WBC (Bld) 8.2 % Low 20.0-40.0 [facility] Comment on above: Performed By: #### C BC, GFR, ANEU, BMP, ADIFF #### [address] [address] Monocyte, Absolute 0.7 10 3/mcL Normal 0.1-1.4 [facility] Comment on above: Performed By: #### C BC, GFR, ANEU, BMP, ADIFF #### [address] [address] Monocytes/100 WBC (Bld) 7.3 % Normal 2.0-13.0 [facility] Comment on above: Performed By: #### C BC, GFR, ANEU, BMP, ADIFF #### [address] [address] Neutrophils/100 WBC (Bld) 84.3 % High 50.0-75.0 [facility] Comment on above: Performed By: #### C BC, GFR, ANEU, BMP, ADIFF #### [address] [address] .GFRon 02-15-2025 Estimated Glomerular Filtration Rate 18 ml/min/1.73sqm Normal [facility] Comment on above: Result Comment: [...] C BC, GFR, ANEU, BMP, ADIFF #### [address] [address] .NEUABSon 02-15-2025 Neutrophil, Absolute 7.6 10 3/mcL Normal 2.3-8.1 [facility] Comment on above: Performed By: #### C BC, GFR, ANEU, BMP, ADIFF #### [address] [address] BMPon 02-15-2025 BUN/Creatinine Ratio 10.2 ratio Normal 10.0-22.0 [facility] Comment on above: Performed By: #### C BC, GFR, ANEU, BMP, ADIFF #### [address] [address] Calcium [Mass/Vol] 8.4 mg/dL Low 8.7-10.4 [facility] Comment on above: Performed By: #### C BC, GFR, ANEU, BMP, ADIFF #### [address] [address] Chloride [Moles/Vol] 102 mmol/L Normal 98-110 [facility] Comment on above: Performed By: #### C BC, GFR, ANEU, BMP, ADIFF #### [address] [address] CO2 [Moles/Vol] 22 mmol/L Normal 22-32 [facility] Comment on above: Performed By: #### C BC, GFR, ANEU, BMP, ADIFF #### [address] [address] Creatinine [Mass/Vol] 3.93 mg/dL High 0.60-1.40 [facility] Comment on above: Result Comment: Test ing performed on Maternova analyzer using enzymatic creatinine methodology. Performed By: #### C BC, GFR, ANEU, BMP, ADIFF #### [address] [address] Electrolyte Balance 10.0 mEq/L Normal 4.0-15.0 [facility] Comment on above: Performed By: #### C BC, GFR, ANEU, BMP, ADIFF #### [address] [address] Glucose [Mass/Vol] 405 mg/dL Critically abnormal 70-110 [facility] Comment on above: Performed By: #### C BC, GFR, ANEU, BMP, ADIFF #### [address] [address] Potassium [Moles/Vol] 5.0 mmol/L Normal 3.5-5.0 [facility] Comment on above: Performed By: #### C BC, GFR, ANEU, BMP, ADIFF #### [place] [address] Sodium [Moles/Vol] 134 mmol/L Low 136-145 [facility] Comment on above: Performed By: #### C BC, GFR, ANEU, BMP, ADIFF #### [place] [address] Urea nitrogen [Mass/Vol] 40.0 mg/dL High 8.0-22.0 [facility] Comment on above: Performed By: #### C BC, GFR, ANEU, BMP, ADIFF #### [place] [id number] CBCon 02-15-2025 Erythrocyte distribution width (RBC) [Ratio] 23.7 % High 11.5-15.5 [facility] Comment on above: Performed By: #### C BC, GFR, ANEU, BMP, ADIFF #### [place] [address] Hematocrit (Bld) [Volume fraction] 31.7 % Low 40.0-52.0 [facility] Comment on above: Performed By: #### C BC, GFR, ANEU, BMP, ADIFF #### [place] [address] Hgb 10.0 G/dL Low 13.0-17.5 [facility] Comment on above: Performed By: #### C BC, GFR, ANEU, BMP, ADIFF #### [place] [address] MCH (RBC) [Entitic mass] 24.7 pg Low 27.0-33.0 [facility] Comment on above: Performed By: #### C BC, GFR, ANEU, BMP, ADIFF #### [place] [address] MCHC 31.6 G/dL Low 32.0-36.0 [facility] Comment on above: Performed By: #### C BC, GFR, ANEU, BMP, ADIFF #### [place] [id number] MCV (RBC) [Entitic vol] 78.2 fL Low 81.0-100.0 [facility] Comment on above: Performed By: #### C BC, GFR, ANEU, BMP, ADIFF #### [address] [address] Platelet 186 10 3/mcL Normal 150-450 [facility] Comment on above: Performed By: #### C BC, GFR, ANEU, BMP, ADIFF #### [place] [id number] [address] [place] [address] Platelet mean volume (Bld) [Entitic vol] 8.1 fL Normal 6.4-10.5 [facility] Comment on above: Performed By: #### C BC, GFR, ANEU, BMP, ADIFF #### [address] [address] RBC 4.06 10 6/mcL Low 4.50-6.00 [facility] Comment on above: Performed By: #### C BC, GFR, ANEU, BMP, ADIFF #### [address] [address] WBC 9.0 10 3/mcL Normal 4.5-10.8 [facility] Comment on above: Performed By: #### C BC, GFR, ANEU, BMP, ADIFF #### [address] [address] LABORATORYOrdered By: Janel Colmenares on 02-15-2025 Glucose [Mass/Vol] 262 mg/dL High 70 - 110 mg/dL [facility] Work Phone: Glucose [Mass/Vol] 355 mg/dL High 70 - 110 mg/dL [facility] Work Phone: LABORATORYOrdered By: Orly Saucedo on 02-15-2025 Glucose [Mass/Vol] 299 mg/dL High 70 - 110 mg/dL [facility] Work Phone: LABORATORYOrdered By: SYSTEM [...] above: Interpretive Data: T esting performed on Maternova analyzer using enzymatic creatinine methodology. Electrolyte Balance [...] Basophil, Absolute 0.1 10 3/mcL Normal 0.0-0.3 [facility] Comment on above: Performed By: #### C BC, GFR, ANEU, BMP, ADIFF #### [place] [address] Basophils/100 WBC (Bld) 0.7 % Normal 0.0-2.5 [facility] Comment on above: Performed By: #### C BC, GFR, ANEU, BMP, ADIFF #### [address] [address] Eosinophil, Absolute 0.0 10 3/mcL Normal 0.0-0.7 [facility] Comment on above: Performed By: #### C BC, GFR, ANEU, BMP, ADIFF #### [address] [address] Eosinophils/100 WBC (Bld) 0.2 % Normal 0.0-6.0 [facility] Comment on above: Performed By: #### C BC, GFR, ANEU, BMP, ADIFF #### [address] [address] Lymphocyte, Absolute 1.3 10 3/mcL Normal 0.9-4.3 [facility] Comment on above: Performed By: #### C BC, GFR, ANEU, BMP, ADIFF #### [address] [address] Lymphocytes/100 WBC (Bld) 16.9 % Low 20.0-40.0 [facility] Comment on above: Performed By: #### C BC, GFR, ANEU, BMP, ADIFF #### [address] [address] Monocyte, Absolute 0.9 10 3/mcL Normal 0.1-1.4 [facility] Comment on above: Performed By: #### C BC, GFR, ANEU, BMP, ADIFF #### [address] [address] Monocytes/100 WBC (Bld) 11.3 % Normal 2.0-13.0 [facility] Comment on above: Performed By: #### C BC, GFR, ANEU, BMP, ADIFF #### [address] [address] Neutrophils/100 WBC (Bld) 70.9 % Normal 50.0-75.0 [facility] Comment on above: Performed By: #### C BC, GFR, ANEU, BMP, ADIFF #### [address] [address] .GFRon 02-14-2025 Estimated Glomerular Filtration Rate 20 ml/min/1.73sqm Normal [facility] Comment on above: Result Comment: [...] C BC, GFR, ANEU, BMP, ADIFF #### [place] [address] .NEUABSon 02-14-2025 Neutrophil, Absolute 5.5 10 3/mcL Normal 2.3-8.1 [facility] Comment on above: Performed By: #### C BC, GFR, ANEU, BMP, ADIFF #### [address] [address] BMPon 02-14-2025 BUN/Creatinine Ratio 10.0 ratio Normal 10.0-22.0 [facility] Comment on above: Performed By: #### C BC, GFR, ANEU, BMP, ADIFF #### [address] [address] Calcium [Mass/Vol] 7.9 mg/dL Low 8.7-10.4 [facility] Comment on above: Performed By: #### C BC, GFR, ANEU, BMP, ADIFF #### [address] [address] Chloride [Moles/Vol] 104 mmol/L Normal 98-110 [facility] Comment on above: Performed By: #### C BC, GFR, ANEU, BMP, ADIFF #### [address] [address] CO2 [Moles/Vol] 26 mmol/L Normal 22-32 [facility] Comment on above: Performed By: #### C BC, GFR, ANEU, BMP, ADIFF #### [address] [address] Creatinine [Mass/Vol] 3.61 mg/dL High 0.60-1.40 [facility] Comment on above: Result Comment: Test ing performed on Maternova analyzer using enzymatic creatinine methodology. Performed By: #### C BC, GFR, ANEU, BMP, ADIFF #### [address] [address] Electrolyte Balance 7.0 mEq/L Normal 4.0-15.0 [facility] Comment on above: Performed By: #### C BC, GFR, ANEU, BMP, ADIFF #### [address] [address] Glucose [Mass/Vol] 312 mg/dL High 70-110 [facility] Comment on above: Performed By: #### C BC, GFR, ANEU, BMP, ADIFF #### [address] [address] Potassium [Moles/Vol] 4.4 mmol/L Normal 3.5-5.0 [facility] Comment on above: Performed By: #### C BC, GFR, ANEU, BMP, ADIFF #### [address] [address] Sodium [Moles/Vol] 137 mmol/L Normal 136-145 [facility] Comment on above: Performed By: #### C BC, GFR, ANEU, BMP, ADIFF #### [address] [address] Urea nitrogen [Mass/Vol] 36.0 mg/dL High 8.0-22.0 [facility] Comment on above: Performed By: #### C BC, GFR, ANEU, BMP, ADIFF #### [address] [address] CBCon 02-14-2025 Erythrocyte distribution width (RBC) [Ratio] 23.6 % High 11.5-15.5 [facility] Comment on above: Performed By: #### C BC, GFR, ANEU, BMP, ADIFF #### [place] [address] Hematocrit (Bld) [Volume fraction] 29.0 % Low 40.0-52.0 [facility] Comment on above: Performed By: #### C BC, GFR, ANEU, BMP, ADIFF #### [place] [address] Hgb 9.2 G/dL Low 13.0-17.5 [facility] Comment on above: Performed By: #### C BC, GFR, ANEU, BMP, ADIFF #### [place] [address] MCH (RBC) [Entitic mass] 24.7 pg Low 27.0-33.0 [facility] Comment on above: Performed By: #### C BC, GFR, ANEU, BMP, ADIFF #### [place] [address] MCHC 31.9 G/dL Low 32.0-36.0 [facility] Comment on above: Performed By: #### C BC, GFR, ANEU, BMP, ADIFF #### [place] [address] MCV (RBC) [Entitic vol] 77.4 fL Low 81.0-100.0 [facility] Comment on above: Performed By: #### C BC, GFR, ANEU, BMP, ADIFF #### [place] [id number] Platelet 185 10 3/mcL Normal 150-450 [facility] Comment on above: Performed By: #### C BC, GFR, ANEU, BMP, ADIFF #### [place] [id number] Platelet mean volume (Bld) [Entitic vol] 7.6 fL Normal 6.4-10.5 [facility] Comment on above: Performed By: #### C BC, GFR, ANEU, BMP, ADIFF #### [place] [address] RBC 3.74 10 6/mcL Low 4.50-6.00 [facility] Comment on above: Performed By: #### C BC, GFR, ANEU, BMP, ADIFF #### [facility] [address] [place] [id number] WBC 7.8 10 3/mcL Normal 4.5-10.8 [facility] Comment on above: Performed By: #### C BC, GFR, ANEU, BMP, ADIFF #### [facility] [address] [address] [place] [id number] LABORATORYOrdered By: Selena Chand on 02-14-2025 Blood Glucose Testing Reason Routine (02/14/25 9:40 PM) [facility] Work Phone: LABORATORYOrdered By: Moe Dutton on 02-14-2025 Blood Glucose Testing Reason Routine (02/14/25 5:18 PM) [facility] Work Phone: Blood Glucose Testing Reason Routine (02/14/25 12:02 PM) [facility] Work Phone: LABORATORYOrdered By: Samra [...] above: Interpretive Data: T esting performed on Maternova analyzer using enzymatic creatinine methodology. Electrolyte Balance [...] RPCURon 02-14-2025 U Creatinine 19.7 mg/dL Normal [facility] Comment on above: Performed By: #### C BC, GFR, ANEU, BMP, ADIFF #### [address] [address] U Protein 474.8 mg/dL Normal [facility] Comment on above: Performed By: #### C BC, GFR, ANEU, BMP, ADIFF #### [address] [address] U Ratio Prot/Creat 24.1 ratio Normal [facility] Comment on above: Performed By: #### C BC, GFR, ANEU, BMP, ADIFF #### [address] [address] UAon 02-14-2025 Color (U) Yellow Normal [facility] Comment on above: Performed By: #### C BC, GFR, ANEU, BMP, ADIFF #### [address] [address] Glucose (U) [Mass/Vol] 500 mg/dL Abnormal Negative [facility] Comment on above: Performed By: #### C BC, GFR, ANEU, BMP, ADIFF #### [address] [address] Ketones Ql (U) Negative Normal Neg-Trace [facility] Comment on above: Performed By: #### C BC, GFR, ANEU, BMP, ADIFF #### [address] [address] UA Appear Clear Normal Clear [facility] Comment on above: Performed By: #### C BC, GFR, ANEU, BMP, ADIFF #### [address] [address] UA Blood Small Abnormal Neg-Trace [facility] Comment on above: Performed By: #### C BC, GFR, ANEU, BMP, ADIFF #### [place] [phone] UA Leuk Est Negative Normal Negative [facility] Comment on above: Performed By: #### C BC, GFR, ANEU, BMP, ADIFF #### [place] [address] UA Nitrite Negative Normal Negative [facility] Comment on above: Performed By: #### C BC, GFR, ANEU, BMP, ADIFF #### [place] [address] UA pH 7.5 Normal 5.0 - 8.0 [facility] Comment on above: Performed By: #### C BC, GFR, ANEU, BMP, ADIFF #### [place] [address] UA Protein >=[address] [facility] Comment on above: Performed By: #### C BC, GFR, ANEU, BMP, ADIFF #### [place] [phone] UA Spec Grav 1.010 Normal 1.006-1.[address] [facility] Comment on above: Performed By: #### C BC, GFR, ANEU, BMP, ADIFF #### [place] [address] UA Specimen Type Clean Catch Normal [facility] Comment on above: Performed By: #### C BC, GFR, ANEU, BMP, ADIFF #### [place] [address] UA Urobilinogen 0.2 E.U./dL Normal 0.2-1.0 [facility] Comment on above: Performed By: #### C BC, GFR, ANEU, BMP, ADIFF #### [place] [address] Urobilinogen (U) [Mass/Vol] Negative Normal Neg-Trace [facility] Comment on above: Performed By: #### C BC, GFR, ANEU, BMP, ADIFF #### [place] [phone] UAMICon 02-14-2025 UA Bacteria Trace Abnormal Negative [facility] Comment on above: Performed By: #### C BC, GFR, ANEU, BMP, ADIFF #### [place] [address] UA RBC 0-2 Normal 0-2 [facility] Comment on above: Performed By: #### C BC, GFR, ANEU, BMP, ADIFF #### [place] [address] UA Squam Epithelial 0-2 Normal 0-20 [facility] Comment on above: Performed By: #### C BC, GFR, ANEU, BMP, ADIFF #### [place] [address] UA WBC 3-5 Normal 0-5 [facility] Comment on above: Performed By: #### C BC, GFR, ANEU, BMP, ADIFF #### [place] [address] .GFRon 02-13-2025 Estimated Glomerular Filtration Rate 14 ml/min/1.73sqm Normal [facility] Comment on above: Result Comment: [...] Performed By: #### R FP, GFR #### [place] [address] LABORATORYOrdered By: SYSTEM SYSTEM on 02-13-2025 Albumin [...] above: Interpretive Data: T esting performed on Maternova analyzer using enzymatic creatinine methodology. Electrolyte Balance [...] 02-13-2025 Albumin Level 2.1 G/dL Low 3.2-4.8 [facility] Comment on above: Performed By: #### R FP, GFR #### [address] [address] BUN/Creatinine Ratio 9.5 ratio Low 10.0-22.0 [facility] Comment on above: Performed By: #### R FP, GFR #### [address] [address] Calcium [Mass/Vol] 7.8 mg/dL Low 8.7-10.4 [facility] Comment on above: Performed By: #### R FP, GFR #### [address] [address] Chloride [Moles/Vol] 105 mmol/L Normal 98-110 [facility] Comment on above: Performed By: #### R FP, GFR #### [address] [address] CO2 [Moles/Vol] 25 mmol/L Normal 22-32 [facility] Comment on above: Performed By: #### R FP, GFR #### [address] [address] Creatinine [Mass/Vol] 4.76 mg/dL High 0.60-1.40 [facility] Comment on above: Result Comment: Test ing performed on Maternova analyzer using enzymatic creatinine methodology. Performed By: #### R FP, GFR #### [address] [address] Electrolyte Balance 7.0 mEq/L Normal 4.0-15.0 [facility] Comment on above: Performed By: #### R FP, GFR #### [place] [address] Glucose [Mass/Vol] 200 mg/dL High 70-110 [facility] Comment on above: Performed By: #### R FP, GFR #### [address] [address] Phosphate [Mass/Vol] 6.2 mg/dL High 2.4-5.1 [facility] Comment on above: Result Comment: No te - New Reference Range in effect 20 Performed By: #### R FP, GFR #### [address] [address] Potassium [Moles/Vol] 4.5 mmol/L Normal 3.5-5.0 [facility] Comment on above: Performed By: #### R FP, GFR #### [address] [address] Sodium [Moles/Vol] 137 mmol/L Normal 136-145 [facility] Comment on above: Performed By: #### R FP, GFR #### [address] [address] Urea nitrogen [Mass/Vol] 45.0 mg/dL High 8.0-22.0 [facility] Comment on above: Performed By: #### R FP, GFR #### [address] [address] .GFRon 02-12-2025 Estimated Glomerular Filtration Rate 17 ml/min/1.73sqm Normal [facility] Comment on above: Result Comment: [...] C BC, GFR, ANEU, BMP, ADIFF #### [address] [address] .Manual Diffon 02-12-2025 Basophil %, Manual 0.0 % Normal 0.0-2.5 [facility] Comment on above: Performed By: #### C BC, GFR, ANEU, BMP, ADIFF #### [place] [phone] Basophil, Abs Manual 0.0 10 3/mcL Normal 0.0-0.3 [facility] Comment on above: Performed By: #### C BC, GFR, ANEU, BMP, ADIFF #### [place] [phone] Eosinophil %, Manual 0.0 % Normal 0.0-6.0 [facility] Comment on above: Performed By: #### C BC, GFR, ANEU, BMP, ADIFF #### [place] [address] Eosinophil, Abs Manual 0.0 10 3/mcL Normal 0.0-0.7 [facility] Comment on above: Performed By: #### C BC, GFR, ANEU, BMP, ADIFF #### [place] [address] Lymphocyte %, Manual 8.0 % Low 20.0-40.0 [facility] Comment on above: Performed By: #### C BC, GFR, ANEU, BMP, ADIFF #### [place] [phone] Lymphocyte, Abs Manual 0.6 10 3/mcL Low 0.9-4.3 [facility] Comment on above: Performed By: #### C BC, GFR, ANEU, BMP, ADIFF #### [place] [phone] Monocyte %, Manual 4.0 % Normal 2.0-13.0 [facility] Comment on above: Performed By: #### C BC, GFR, ANEU, BMP, ADIFF #### [place] [phone] Monocyte, Abs Manual 0.3 10 3/mcL Normal 0.1-1.4 [facility] Comment on above: Performed By: #### C BC, GFR, ANEU, BMP, ADIFF #### [place] [address] Neutrophil %, Manual 88.0 % High 50.0-75.0 [facility] Comment on above: Performed By: #### C BC, GFR, ANEU, BMP, ADIFF #### [place] [address] Neutrophil, Abs Manual 6.6 10 3/mcL Normal 2.3-8.1 [facility] Comment on above: Performed By: #### C BC, GFR, ANEU, BMP, ADIFF #### [place] [address] Nucleated RBC 0.0 /[address] [facility] Comment on above: Performed By: #### C BC, GFR, ANEU, BMP, ADIFF #### [place] [address] .Morphon 02-12-2025 Anisocytosis Ql (Bld) 1+ Normal [facility] Comment on above: Performed By: #### C BC, GFR, ANEU, BMP, ADIFF #### [place] [address] Hypochrom 1+ Normal [facility] Comment on above: Performed By: #### C BC, GFR, ANEU, BMP, ADIFF #### [place] [address] Large Platelets Few Normal [facility] Comment on above: Performed By: #### C BC, GFR, ANEU, BMP, ADIFF #### [place] [address] Microcytosis 1+ Normal [facility] Comment on above: Performed By: #### C BC, GFR, ANEU, BMP, ADIFF #### [place] [address] Ovalocytes 1+ Normal [facility] Comment on above: Performed By: #### C BC, GFR, ANEU, BMP, ADIFF #### [place] [address] Platelet Estimate Normal Normal [facility] Comment on above: Performed By: #### C BC, GFR, ANEU, BMP, ADIFF #### [address] [address] Poik 1+ Normal [facility] Comment on above: Performed By: #### C BC, GFR, ANEU, BMP, ADIFF #### [place] [phone] Tear Cell 1+ Normal [facility] Comment on above: Performed By: #### C BC, GFR, ANEU, BMP, ADIFF #### [place] [address] BMPon 02-12-2025 BUN/Creatinine Ratio 9.2 ratio Low 10.0-22.0 [facility] Comment on above: Performed By: #### C BC, GFR, ANEU, BMP, ADIFF #### [place] [address] Calcium [Mass/Vol] 8.1 mg/dL Low 8.7-10.4 [facility] Comment on above: Performed By: #### C BC, GFR, ANEU, BMP, ADIFF #### [place] [address] Chloride [Moles/Vol] 106 mmol/L Normal 98-110 [facility] Comment on above: Performed By: #### C BC, GFR, ANEU, BMP, ADIFF #### [place] [address] CO2 [Moles/Vol] 28 mmol/L Normal 22-32 [facility] Comment on above: Performed By: #### C BC, GFR, ANEU, BMP, ADIFF #### [place] [address] Creatinine [Mass/Vol] 4.14 mg/dL High 0.60-1.40 [facility] Comment on above: Result Comment: Test ing performed on Maternova analyzer using enzymatic creatinine methodology. Performed By: #### C BC, GFR, ANEU, BMP, ADIFF #### [place] [address] Electrolyte Balance 5.0 mEq/L Normal 4.0-15.0 [facility] Comment on above: Performed By: #### C BC, GFR, ANEU, BMP, ADIFF #### [address] [address] Glucose [Mass/Vol] 210 mg/dL High 70-110 [facility] Comment on above: Performed By: #### C BC, GFR, ANEU, BMP, ADIFF #### [address] [address] Potassium [Moles/Vol] 4.7 mmol/L Normal 3.5-5.0 [facility] Comment on above: Performed By: #### C BC, GFR, ANEU, BMP, ADIFF #### [address] [address] Sodium [Moles/Vol] 139 mmol/L Normal 136-145 [facility] Comment on above: Performed By: #### C BC, GFR, ANEU, BMP, ADIFF #### [place] [phone] Urea nitrogen [Mass/Vol] 38.0 mg/dL High 8.0-22.0 [facility] Comment on above: Performed By: #### C BC, GFR, ANEU, BMP, ADIFF #### [address] [address] CBCon 02-12-2025 Erythrocyte distribution width (RBC) [Ratio] 24.7 % High 11.5-15.5 [facility] Comment on above: Performed By: #### C BC, GFR, ANEU, BMP, ADIFF #### [address] [address] Hematocrit (Bld) [Volume fraction] 27.5 % Low 40.0-52.0 [facility] Comment on above: Performed By: #### C BC, GFR, ANEU, BMP, ADIFF #### [address] [address] Hgb 8.5 G/dL Low 13.0-17.5 [facility] Comment on above: Performed By: #### C BC, GFR, ANEU, BMP, ADIFF #### [address] [address] MCH (RBC) [Entitic mass] 23.9 pg Low 27.0-33.0 [facility] Comment on above: Performed By: #### C BC, GFR, ANEU, BMP, ADIFF #### [place] [address] MCHC 31.0 G/dL Low 32.0-36.0 [facility] Comment on above: Performed By: #### C BC, GFR, ANEU, BMP, ADIFF #### [place] [address] MCV (RBC) [Entitic vol] 77.1 fL Low 81.0-100.0 [facility] Comment on above: Performed By: #### C BC, GFR, ANEU, BMP, ADIFF #### [place] [address] Platelet 204 10 3/mcL Normal 150-450 [facility] Comment on above: Performed By: #### C BC, GFR, ANEU, BMP, ADIFF #### [place] [address] Platelet mean volume (Bld) [Entitic vol] 7.8 fL Normal 6.4-10.5 [facility] Comment on above: Performed By: #### C BC, GFR, ANEU, BMP, ADIFF #### [place] [address] RBC 3.57 10 6/mcL Low 4.50-6.00 [facility] Comment on above: Performed By: #### C BC, GFR, ANEU, BMP, ADIFF #### [place] [address] WBC 7.5 10 3/mcL Normal 4.5-10.8 [facility] Comment on above: Performed By: #### C BC, GFR, ANEU, BMP, ADIFF #### [place] [address] LABORATORYOrdered By: SYSTEM SYSTEM on 02-12-2025 Anisocytosis [...] Basophil, Absolute 0.1 10 3/mcL Normal 0.0-0.3 [facility] Comment on above: Performed By: #### C BC, GFR, ANEU, BMP, ADIFF #### [address] [address] Eosinophil, Absolute 0.1 10 3/mcL Normal 0.0-0.7 [facility] Comment on above: Performed By: #### C BC, GFR, ANEU, BMP, ADIFF #### [address] [address] Lymphocyte, Absolute 1.1 10 3/mcL Normal 0.9-4.3 [facility] Comment on above: Performed By: #### C BC, GFR, ANEU, BMP, ADIFF #### [address] [address] Monocyte, Absolute 0.9 10 3/mcL Normal 0.1-1.4 [facility] Comment on above: Performed By: #### C BC, GFR, ANEU, BMP, ADIFF #### [address] [address] .Auto DiffOrdered By: SYSTEM SYSTEM on 02-11-2025 Basophils/100 WBC (Bld) 0.7 % Normal 0.0-2.5 A [facility] Workflow SS Comment on above: Performed By: #### C BC, GFR, ANEU, BMP, ADIFF #### [address] [address] Eosinophils/100 WBC (Bld) 0.8 % Normal 0.0-6.0 [facility] Workflow SS Comment on above: Performed By: #### C BC, GFR, ANEU, BMP, ADIFF #### [address] [address] Lymphocytes/100 WBC (Bld) 14.4 % Low 20.0-40.0 [facility] Workflow SS Comment on above: Performed By: #### C BC, GFR, ANEU, BMP, ADIFF #### [address] [address] Monocytes/100 WBC (Bld) 10.8 % Normal 2.0-13.0 A [facility] Workflow SS Comment on above: Performed By: #### C BC, GFR, ANEU, BMP, ADIFF #### [address] [address] Neutrophils/100 WBC (Bld) 73.3 % Normal 50.0-75.0 [facility] Workflow SS Comment on above: Performed By: #### C BC, GFR, ANEU, BMP, ADIFF #### [address] [address] .GFRon 02-11-2025 Estimated Glomerular Filtration Rate 13 ml/min/1.73sqm Normal [facility] Comment on above: Result Comment: [...] C BC, GFR, ANEU, BMP, ADIFF #### [address] [address] .NEUABSon 02-11-2025 Neutrophil, Absolute 5.8 10 3/mcL Normal 2.3-8.1 [facility] Comment on above: Performed By: #### C BC, GFR, ANEU, BMP, ADIFF #### [place] [phone] BMPon 02-11-2025 BUN/Creatinine Ratio 8.2 ratio Low 10.0-22.0 [facility] Comment on above: Performed By: #### C BC, GFR, ANEU, BMP, ADIFF #### [place] [phone] Calcium [Mass/Vol] 7.9 mg/dL Low 8.7-10.4 [facility] Comment on above: Performed By: #### C BC, GFR, ANEU, BMP, ADIFF #### [place] [phone] Chloride [Moles/Vol] 111 mmol/L High 98-110 [facility] Comment on above: Performed By: #### C BC, GFR, ANEU, BMP, ADIFF #### [place] [phone] CO2 [Moles/Vol] 23 mmol/L Normal 22-32 [facility] Comment on above: Performed By: #### C BC, GFR, ANEU, BMP, ADIFF #### [place] [phone] Creatinine [Mass/Vol] 5.13 mg/dL High 0.60-1.40 [facility] Comment on above: Result Comment: Test ing performed on Maternova analyzer using enzymatic creatinine methodology. Performed By: #### C BC, GFR, ANEU, BMP, ADIFF #### [address] [address] Electrolyte Balance 7.0 mEq/L Normal 4.0-15.0 [facility] Comment on above: Performed By: #### C BC, GFR, ANEU, BMP, ADIFF #### [address] [address] Glucose [Mass/Vol] 129 mg/dL High 70-110 [facility] Comment on above: Performed By: #### C BC, GFR, ANEU, BMP, ADIFF #### [place] [phone] Potassium [Moles/Vol] 5.0 mmol/L Normal 3.5-5.0 [facility] Comment on above: Performed By: #### C BC, GFR, ANEU, BMP, ADIFF #### [place] [phone] Sodium [Moles/Vol] 141 mmol/L Normal 136-145 [facility] Comment on above: Performed By: #### C BC, GFR, ANEU, BMP, ADIFF #### [place] [phone] Urea nitrogen [Mass/Vol] 42.0 mg/dL High 8.0-22.0 [facility] Comment on above: Performed By: #### C BC, GFR, ANEU, BMP, ADIFF #### [address] [address] CBCon 02-11-2025 Erythrocyte distribution width (RBC) [Ratio] 24.7 % High 11.5-15.5 [facility] Comment on above: Performed By: #### C BC, GFR, ANEU, BMP, ADIFF #### [address] [address] Hematocrit (Bld) [Volume fraction] 23.9 % Low 40.0-52.0 [facility] Comment on above: Performed By: #### C BC, GFR, ANEU, BMP, ADIFF #### [place] [phone] Hgb 7.6 G/dL Low 13.0-17.5 [facility] Comment on above: Performed By: #### C BC, GFR, ANEU, BMP, ADIFF #### [place] [address] MCH (RBC) [Entitic mass] 24.3 pg Low 27.0-33.0 [facility] Comment on above: Performed By: #### C BC, GFR, ANEU, BMP, ADIFF #### [place] [address] MCHC 32.0 G/dL Normal 32.0-36.0 [facility] Comment on above: Performed By: #### C BC, GFR, ANEU, BMP, ADIFF #### [place] [address] MCV (RBC) [Entitic vol] 76.0 fL Low 81.0-100.0 [facility] Comment on above: Performed By: #### C BC, GFR, ANEU, BMP, ADIFF #### [place] [address] Platelet 200 10 3/mcL Normal 150-450 [facility] Comment on above: Performed By: #### C BC, GFR, ANEU, BMP, ADIFF #### [place] [address] Platelet mean volume (Bld) [Entitic vol] 8.4 fL Normal 6.4-10.5 [facility] Comment on above: Performed By: #### C BC, GFR, ANEU, BMP, ADIFF #### [place] [address] RBC 3.14 10 6/mcL Low 4.50-6.00 [facility] Comment on above: Performed By: #### C BC, GFR, ANEU, BMP, ADIFF #### [place] [address] WBC 7.9 10 3/mcL Normal 4.5-10.8 [facility] Comment on above: Performed By: #### C BC, GFR, ANEU, BMP, ADIFF #### [place] [address] LABORATORYOrdered By: SYSTEM SYSTEM on 02-11-2025 Basophils [...] C BC, GFR, ANEU, BMP, ADIFF #### [address] [address] PHOSOrdered By: SYSTEM [employer] on 02-11-2025 Phosphate [Mass/Vol] 7.7 mg/dL High 2.4-5.1 [facility] A DM SS Comment on above: Interpretive Data: * *Note - New Reference Range in effect 20 Result Comment: No te - New Reference Range in effect 20 Performed By: #### C BC, GFR, ANEU, BMP, ADIFF #### [address] [address] .Auto Diffon 02-10-2025 Basophil, Absolute 0.0 10 3/mcL Normal 0.0-0.3 [facility] Comment on above: Performed By: #### C BC, GFR, ANEU, BMP, ADIFF #### [address] [address] Basophils/100 WBC (Bld) 0.5 % Normal 0.0-2.5 [facility] Comment on above: Performed By: #### C BC, GFR, ANEU, BMP, ADIFF #### [address] [address] Eosinophil, Absolute 0.0 10 3/mcL Normal 0.0-0.7 [facility] Comment on above: Performed By: #### C BC, GFR, ANEU, BMP, ADIFF #### [address] [address] Eosinophils/100 WBC (Bld) 0.2 % Normal 0.0-6.0 [facility] Comment on above: Performed By: #### C BC, GFR, ANEU, BMP, ADIFF #### [address] [address] Lymphocyte, Absolute 0.2 10 3/mcL Low 0.9-4.3 [facility] Comment on above: Performed By: #### C BC, GFR, ANEU, BMP, ADIFF #### [address] [address] Lymphocytes/100 WBC (Bld) 3.1 % Low 20.0-40.0 [facility] Comment on above: Performed By: #### C BC, GFR, ANEU, BMP, ADIFF #### [address] [address] Monocyte, Absolute 0.2 10 3/mcL Normal 0.1-1.4 [facility] Comment on above: Performed By: #### C BC, GFR, ANEU, BMP, ADIFF #### [address] [address] Monocytes/100 WBC (Bld) 2.1 % Normal 2.0-13.0 [facility] Comment on above: Performed By: #### C BC, GFR, ANEU, BMP, ADIFF #### [address] [address] Neutrophils/100 WBC (Bld) 94.1 % High 50.0-75.0 [facility] Comment on above: Performed By: #### C BC, GFR, ANEU, BMP, ADIFF #### [address] [address] .GFRon 02-10-2025 Estimated Glomerular Filtration Rate 14 ml/min/1.73sqm Normal [facility] Comment on above: Result Comment: [...] C BC, GFR, ANEU, BMP, ADIFF #### [address] [address] Estimated Glomerular Filtration Rate 11 ml/min/1.73sqm [facility] Comment on above: Result Comment: Stages [...] C BC, GFR, ANEU, BMP, ADIFF #### [address] [address] Estimated Glomerular Filtration Rate 11 ml/min/1.73sqm [facility] Comment on above: Result Comment: Stages [...] C BC, GFR, ANEU, BMP, ADIFF #### [place] [address] Estimated Glomerular Filtration Rate 11 ml/min/1.73sqm [facility] Comment on above: Result Comment: Stages [...] C BC, GFR, ANEU, BMP, ADIFF #### [place] [address] .Morphon 02-10-2025 Anisocytosis Ql (Bld) 2+ Normal [facility] Comment on above: Performed By: #### C BC, GFR, ANEU, BMP, ADIFF #### [place] [address] Hypochrom 1+ [facility] Comment on above: Performed By: #### C BC, GFR, ANEU, BMP, ADIFF #### [place] [address] Microcytosis 1+ [facility] Comment on above: Performed By: #### C BC, GFR, ANEU, BMP, ADIFF #### [place] [address] Ovalocytes 1+ [facility] Comment on above: Performed By: #### C BC, GFR, ANEU, BMP, ADIFF #### [place] [address] Platelet Estimate Normal Normal [facility] Comment on above: Performed By: #### C BC, GFR, ANEU, BMP, ADIFF #### [place] [address] Poik 1+ Normal [facility] Comment on above: Performed By: #### C BC, GFR, ANEU, BMP, ADIFF #### [place] [address] .NEUABSon 02-10-2025 Neutrophil, Absolute 7.1 10 3/mcL Normal 2.3-8.1 [facility] Comment on above: Performed By: #### C BC, GFR, ANEU, BMP, ADIFF #### [place] [address] A1Con 02-10-2025 Glucose [Mass/Vol] 197 mg/dL Normal [facility] Comment on above: Result Comment: Nissa mated Average Glucose calculated by equation ((28.7xA1C)-46.7) Estimated average glucose (eAG) is a calculated value from Hemoglobin A1C and is renewals representative of the average blood glucose level in the last 2-3 month period. Normal range: less than 114 mg/dL Performed By: #### C BC, GFR, ANEU, BMP, ADIFF #### [place] [address] HbA1c (Bld) [Mass fraction] 8.5 % High 4.0-6.0 [facility] Comment on above: Performed By: #### C BC, GFR, ANEU, BMP, ADIFF #### [place] [address] BMPon 02-10-2025 BUN/Creatinine Ratio 8.6 ratio Low 10.0-22.0 [facility] Comment on above: Performed By: #### C BC, GFR, ANEU, BMP, ADIFF #### [place] [address] Calcium [Mass/Vol] 8.3 mg/dL Low 8.7-10.4 [facility] Comment on above: Performed By: #### C BC, GFR, ANEU, BMP, ADIFF #### [place] [address] Chloride [Moles/Vol] 109 mmol/L Normal 98-110 [facility] Comment on above: Performed By: #### C BC, GFR, ANEU, BMP, ADIFF #### [address] [address] CO2 [Moles/Vol] 24 mmol/L Normal 22-32 [facility] Comment on above: Performed By: #### C BC, GFR, ANEU, BMP, ADIFF #### [address] [address] Creatinine [Mass/Vol] 4.86 mg/dL High 0.60-1.40 [facility] Comment on above: Result Comment: Test ing performed on Matern[employer] analyzer using enzymatic creatinine methodology. Performed By: #### C BC, GFR, ANEU, BMP, ADIFF #### [address] [address] Electrolyte Balance 7.0 mEq/L Normal 4.0-15.0 [facility] Comment on above: Performed By: #### C BC, GFR, ANEU, BMP, ADIFF #### [address] [address] Glucose [Mass/Vol] 164 mg/dL High 70-110 [facility] Comment on above: Performed By: #### C BC, GFR, ANEU, BMP, ADIFF #### [address] [address] Potassium [Moles/Vol] 5.6 mmol/L High 3.5-5.0 [facility] Comment on above: Performed By: #### C BC, GFR, ANEU, BMP, ADIFF #### [address] [address] Sodium [Moles/Vol] 140 mmol/L Normal 136-145 [facility] Comment on above: Performed By: #### C BC, GFR, ANEU, BMP, ADIFF #### [address] [address] Urea nitrogen [Mass/Vol] 42.0 mg/dL High 8.0-22.0 [facility] Comment on above: Performed By: #### C BC, GFR, ANEU, BMP, ADIFF #### [address] [address] BUN/Creatinine Ratio 9.4 ratio Low 10.0-22.0 [facility] Comment on above: Performed By: #### C BC, GFR, ANEU, BMP, ADIFF #### [address] [address] Calcium [Mass/Vol] 8.3 mg/dL Low 8.7-10.4 [facility] Comment on above: Performed By: #### C BC, GFR, ANEU, BMP, ADIFF #### [address] [address] Chloride [Moles/Vol] 111 mmol/L High 98-110 [facility] Comment on above: Performed By: #### C BC, GFR, ANEU, BMP, ADIFF #### [address] [address] CO2 [Moles/Vol] 20 mmol/L Low 22-32 [facility] Comment on above: Performed By: #### C BC, GFR, ANEU, BMP, ADIFF #### [address] [address] Creatinine [Mass/Vol] 5.85 mg/dL High 0.60-1.40 [facility] Comment on above: Result Comment: Test ing performed on Maternova analyzer using enzymatic creatinine methodology. Performed By: #### C BC, GFR, ANEU, BMP, ADIFF #### [address] [address] Electrolyte Balance 8.0 mEq/L Normal 4.0-15.0 [facility] Comment on above: Performed By: #### C BC, GFR, ANEU, BMP, ADIFF #### [address] [address] Glucose [Mass/Vol] 225 mg/dL High 70-110 [facility] Comment on above: Performed By: #### C BC, GFR, ANEU, BMP, ADIFF #### [address] [address] Potassium [Moles/Vol] 6.6 mmol/L Critically abnormal 3.5-5.0 [facility] Comment on above: Performed By: #### C BC, GFR, ANEU, BMP, ADIFF #### [place] [phone] Sodium [Moles/Vol] 139 mmol/L Normal 136-145 [facility] Comment on above: Performed By: #### C BC, GFR, ANEU, BMP, ADIFF #### [place] [address] Urea nitrogen [Mass/Vol] 55.0 mg/dL High 8.0-22.0 [facility] Comment on above: Performed By: #### C BC, GFR, ANEU, BMP, ADIFF #### [place] [address] CBCon 02-10-2025 Erythrocyte distribution width (RBC) [Ratio] 25.1 % High 11.5-15.5 [facility] Comment on above: Performed By: #### C BC, GFR, ANEU, BMP, ADIFF #### [place] [address] Hematocrit (Bld) [Volume fraction] 27.2 % Low 40.0-52.0 [facility] Comment on above: Performed By: #### C BC, GFR, ANEU, BMP, ADIFF #### [place] [address] Hgb 8.8 G/dL Low 13.0-17.5 [facility] Comment on above: Performed By: #### C BC, GFR, ANEU, BMP, ADIFF #### [place] [phone] MCH (RBC) [Entitic mass] 24.9 pg Low 27.0-33.0 [facility] Comment on above: Performed By: #### C BC, GFR, ANEU, BMP, ADIFF #### [place] [phone] MCHC 32.3 G/dL Normal 32.0-36.0 [facility] Comment on above: Performed By: #### C BC, GFR, ANEU, BMP, ADIFF #### [address] [address] MCV (RBC) [Entitic vol] 77.0 fL Low 81.0-100.0 [facility] Comment on above: Performed By: #### C BC, GFR, ANEU, BMP, ADIFF #### [place] [address] Platelet 211 10 3/mcL Normal 150-450 [facility] Comment on above: Performed By: #### C BC, GFR, ANEU, BMP, ADIFF #### [place] [address] Platelet mean volume (Bld) [Entitic vol] 8.4 fL Normal 6.4-10.5 [facility] Comment on above: Performed By: #### C BC, GFR, ANEU, BMP, ADIFF #### [place] [address] RBC 3.54 10 6/mcL Low 4.50-6.00 [facility] Comment on above: Performed By: #### C BC, GFR, ANEU, BMP, ADIFF #### [place] [address] WBC 7.5 10 3/mcL Normal 4.5-10.8 [facility] Comment on above: Performed By: #### C BC, GFR, ANEU, BMP, ADIFF #### [place] [address] CMPon 02-10-2025 Albumin Level 2.1 G/dL Low 3.2-4.8 [facility] Comment on above: Performed By: #### C BC, GFR, ANEU, BMP, ADIFF #### [place] [address] Albumin/Globulin [Mass ratio] 0.4 {ratio} Low 0.9-1.6 [facility] Comment on above: Performed By: #### C BC, GFR, ANEU, BMP, ADIFF #### [place] [address] ALP [Catalytic activity/Vol] 137 U/L High 38-126 [facility] Comment on above: Performed By: #### C BC, GFR, ANEU, BMP, ADIFF #### [address] [address] ALT [Catalytic activity/Vol] 10 U/L Low 12-55 [facility] Comment on above: Performed By: #### C BC, GFR, ANEU, BMP, ADIFF #### [address] [address] AST [Catalytic activity/Vol] 12 U/L Normal 8-34 [facility] Comment on above: Performed By: #### C BC, GFR, ANEU, BMP, ADIFF #### [address] [address] Bili Total 0.20 mg/dL Normal 0.20-1.20 [facility] Comment on above: Result Comment: Use of this assay is not recommended for patients undergoing treatment with eltrombopag due to the potential for falsely elevated results. Performed By: #### C BC, GFR, ANEU, BMP, ADIFF #### [place] [phone] BUN/Creatinine Ratio 9.2 ratio Low 10.0-22.0 [facility] Comment on above: Performed By: #### C BC, GFR, ANEU, BMP, ADIFF #### [place] [phone] Calcium [Mass/Vol] 8.0 mg/dL Low 8.7-10.4 [facility] Comment on above: Performed By: #### C BC, GFR, ANEU, BMP, ADIFF #### [address] [address] Chloride [Moles/Vol] 111 mmol/L High 98-110 [facility] Comment on above: Performed By: #### C BC, GFR, ANEU, BMP, ADIFF #### [place] [phone] CO2 [Moles/Vol] 19 mmol/L Low 22-32 [facility] Comment on above: Performed By: #### C BC, GFR, ANEU, BMP, ADIFF #### [facility] [address] [place], [place] [address] Creatinine [Mass/Vol] 5.86 mg/dL High 0.60-1.40 [facility] Comment on above: Result Comment: Test ing performed on Maternova analyzer using enzymatic creatinine methodology. Performed By: #### C BC, GFR, ANEU, BMP, ADIFF #### [address] [address] Electrolyte Balance 7.0 mEq/L Normal 4.0-15.0 [facility] Comment on above: Performed By: #### C BC, GFR, ANEU, BMP, ADIFF #### [address] [address] Globulin 5.1 G/dL High 1.5-3.8 [facility] Comment on above: Performed By: #### C BC, GFR, ANEU, BMP, ADIFF #### [address] [address] Glucose [Mass/Vol] 270 mg/dL High 70-110 [facility] Comment on above: Performed By: #### C BC, GFR, ANEU, BMP, ADIFF #### [address] [address] Potassium [Moles/Vol] 7.2 mmol/L Critically abnormal 3.5-5.0 [facility] Comment on above: Performed By: #### C BC, GFR, ANEU, BMP, ADIFF #### [address] [address] Sodium [Moles/Vol] 137 mmol/L Normal 136-145 [facility] Comment on above: Performed By: #### C BC, GFR, ANEU, BMP, ADIFF #### [address] [address] Total Protein 7.2 G/dL Normal 5.7-8.2 [facility] Comment on above: Performed By: #### C BC, GFR, ANEU, BMP, ADIFF #### [address] [address] Urea nitrogen [Mass/Vol] 54.0 mg/dL High 8.0-22.0 [facility] Comment on above: Performed By: #### C BC, GFR, ANEU, BMP, ADIFF #### [address] [address] Albumin Level 2.1 G/dL Low 3.2-4.8 [facility] Comment on above: Performed By: #### C BC, GFR, ANEU, BMP, ADIFF #### [address] [address] Albumin/Globulin [Mass ratio] 0.4 {ratio} Low 0.9-1.6 [facility] Comment on above: Performed By: #### C BC, GFR, ANEU, BMP, ADIFF #### [address] [address] ALP [Catalytic activity/Vol] 144 U/L High 38-126 [facility] Comment on above: Performed By: #### C BC, GFR, ANEU, BMP, ADIFF #### [place] [phone] ALT [Catalytic activity/Vol] 12 U/L Normal 12-55 [facility] Comment on above: Performed By: #### C BC, GFR, ANEU, BMP, ADIFF #### [address] [address] AST [Catalytic activity/Vol] 17 U/L Normal 8-34 [facility] Comment on above: Performed By: #### C BC, GFR, ANEU, BMP, ADIFF #### [place] [phone] Bili Total 0.20 mg/dL Normal 0.20-1.20 [facility] Comment on above: Result Comment: Use of this assay is not recommended for patients undergoing treatment with eltrombopag due to the potential for falsely elevated results. Performed By: #### C BC, GFR, ANEU, BMP, ADIFF #### [place] [phone] BUN/Creatinine Ratio 9.4 ratio Low 10.0-22.0 [facility] Comment on above: Performed By: #### C BC, GFR, ANEU, BMP, ADIFF #### [address] [address] Calcium [Mass/Vol] 8.3 mg/dL Low 8.7-10.4 [facility] Comment on above: Performed By: #### C BC, GFR, ANEU, BMP, ADIFF #### [address] [address] Chloride [Moles/Vol] 111 mmol/L High 98-110 [facility] Comment on above: Performed By: #### C BC, GFR, ANEU, BMP, ADIFF #### [address] [address] CO2 [Moles/Vol] 17 mmol/L Low 22-32 [facility] Comment on above: Performed By: #### C BC, GFR, ANEU, BMP, ADIFF #### [address] [address] Creatinine [Mass/Vol] 5.86 mg/dL High 0.60-1.40 [facility] Comment on above: Result Comment: Test ing performed on Maternova analyzer using enzymatic creatinine methodology. Performed By: #### C BC, GFR, ANEU, BMP, ADIFF #### [address] [address] Electrolyte Balance 10.0 mEq/L Normal 4.0-15.0 [facility] Comment on above: Performed By: #### C BC, GFR, ANEU, BMP, ADIFF #### [address] [address] Globulin 5.4 G/dL High 1.5-3.8 [facility] Comment on above: Performed By: #### C BC, GFR, ANEU, BMP, ADIFF #### [address] [address] Glucose [Mass/Vol] 235 mg/dL High 70-110 [facility] Comment on above: Performed By: #### C BC, GFR, ANEU, BMP, ADIFF #### [address] [address] Potassium [Moles/Vol] 7.1 mmol/L Critically abnormal 3.5-5.0 [facility] Comment on above: Performed By: #### C BC, GFR, ANEU, BMP, ADIFF #### [place] [phone] Sodium [Moles/Vol] 138 mmol/L Normal 136-145 [facility] Comment on above: Performed By: #### C BC, GFR, ANEU, BMP, ADIFF #### [place] [address] Total Protein 7.5 G/dL Normal 5.7-8.2 [facility] Comment on above: Performed By: #### C BC, GFR, ANEU, BMP, ADIFF #### [place] [address] Urea nitrogen [Mass/Vol] 55.0 mg/dL High 8.0-22.0 [facility] Comment on above: Performed By: #### C BC, GFR, ANEU, BMP, ADIFF #### [place] [address] HEPACon 02-10-2025 Hep A IgM Ab Non-Reactive Normal Non-Reacti [facility] Comment on above: Performed By: #### H EPAC #### [place] [address] Hep A IgM Ab Int [facility] Comment on above: Result Comment: No s erological evidence of a current Hepatitis A infection. See Interp Performed By: #### H EPAC #### [place] [address] Hep B Core IgM Ab Non-Reactive Normal Non-Reacti [facility] Comment on above: Performed By: #### H EPAC #### [place] [phone] Hep B Core IgM Ab Int Normal [facility] Comment on above: Result Comment: Samp les with a value < 0.80 Index are considered nonreactive (negative) for IgM antibodies to hepatitis B core antigen. See Interp Performed By: #### H EPAC #### [place] [phone] Hep B Surf Ag Non-Reactive Normal Non-Reacti [facility] Comment on above: Performed By: #### H EPAC #### [place] [address] Hep C Ab Non-Reactive Normal Non-Reacti ve [facility] Comment on above: Performed By: #### H EPA #### [place] [address] Hep C Ab Int Normal [facility] Comment on above: Result Comment: Nonr eactive: Samples with a value < 0.80 are considered nonreactive (negative) for antibodies to HCV. A negative test result does not exclude the possibility of exposure to or infection with HCV. HCV antibodies may be undetectable in some stages of the infection and in some clinical conditions. See Interp Performed By: #### H EPA #### [place] [address] Rainer 02-10-2025 Potassium [Moles/Vol] 7.1 mmol/L Critically abnormal 3.5-5.0 [facility] Comment on above: Performed By: #### K #### [place] [address] Potassium [Moles/Vol] 7.1 mmol/L Critically abnormal 3.5-5.0 [facility] Comment on above: Performed By: #### C BC, GFR, ANEU, BMP, ADIFF #### [place] [address] LABORATORYOrdered By: Trena Vilchis on 02-10-2025 Blood Glucose Interventions Administered agent to decrease blood sugar (02/10/25 11:20 AM) [facility] Work Phone: LABORATORYOrdered By: Yadira [...] calculated value from Hemoglobin A1C and is renewals representative of the average blood glucose level [...] to decrease blood sugar (02/10/25 3:42 AM) [facility] Work Phone: LIPIDon 02-10-2025 Cholesterol [Mass/Vol] 94 mg/dL Normal 50-199 [facility] Comment on above: Result Comment: Chol esterol Reference Interval: Less than 200 Desirable 200-239 Borderline high risk 240 and above High risk Performed By: #### C BC, GFR, ANEU, BMP, ADIFF #### [address] [address] Cholesterol in HDL [Mass/Vol] 35 mg/dL Low 40-59 [facility] Comment on above: Performed By: #### C BC, GFR, ANEU, BMP, ADIFF #### [address] [address] Cholesterol in LDL [Mass/Vol] 46 mg/dL Normal 0-129 [facility] Comment on above: Performed By: #### C BC, GFR, ANEU, BMP, ADIFF #### [address] [address] Triglyceride [Mass/Vol] 67 mg/dL Normal 3-149 [facility] Comment on above: Performed By: #### C BC, GFR, ANEU, BMP, ADIFF #### [address] [address] MGon 02-10-2025 Magnesium [Mass/Vol] 1.9 mg/dL Normal 1.6-2.4 [facility] Comment on above: Performed By: #### C BC, GFR, ANEU, BMP, ADIFF #### [address] [address] PHOSon 02-10-2025 Phosphate [Mass/Vol] 9.1 mg/dL Critically abnormal 2.4-5.1 [facility] Comment on above: Result Comment: No te - New Reference Range in effect 20 Performed By: #### C BC, GFR, ANEU, BMP, ADIFF #### [facility] [address] [place], [place] [id number] US RENALon 02-10-2025 US RENAL ORIGINAL EXAMINATION: ULTRASOUND OF THE KIDNEYS 02/10/2025 5:30 am COMPARISON: 06/23/2024 HISTORY: ORDERING SYSTEM PROVIDED HISTORY: Reason for Exam: GEEN on CKD FINDINGS: The right kidney measures [...] 02/10/2025 6:52:46 AM Ordering Provider: MARTÍN KEY [facility] XR CHEST 1 VIEWon 02-10-2025 [...] 02/10/2025 6:48:10 AM Ordering Provider: MARTÍN KEY [facility] .GFRon 02-09-2025 Estimated Glomerular Filtration Rate 10 ml/min/1.73sqm Normal [facility] Comment on above: Result Comment: [...] results. Performed By: #### C VFLURV #### [place] [address] .MDWon 02-09-2025 Monocyte Distribution Width 17.38 Normal 0.00-20.00 [facility] Comment on above: Result Comment: For ED adult patients suspected of sepsis, MDW<=20.0 does not rule out sepsis or risk of sepsis Performed By: #### G FR, PBNP, MDW, DIFF, CBC, MG, BMP, MORPH, TROPHS, DIMER #### [place] [address] .Manual Diffon 02-09-2025 Basophil %, Manual 0.0 % Normal 0.0-2.5 [facility] Comment on above: Performed By: #### G FR, PBNP, MDW, DIFF, CBC, MG, BMP, MORPH, TROPHS, DIMER #### [place] [address] Basophil, Abs Manual 0.0 10 3/mcL Normal 0.0-0.2 [facility] Comment on above: Performed By: #### G FR, PBNP, MDW, DIFF, CBC, MG, BMP, MORPH, TROPHS, DIMER #### [place] [address] Eosinophil %, Manual 5.0 % Normal 0.0-7.0 [facility] Comment on above: Performed By: #### G FR, PBNP, MDW, DIFF, CBC, MG, BMP, MORPH, TROPHS, DIMER #### [address] [address] Eosinophil, Abs Manual 0.4 10 3/mcL Normal 0.0-0.7 [facility] Comment on above: Performed By: #### G FR, PBNP, MDW, DIFF, CBC, MG, BMP, MORPH, TROPHS, DIMER #### [address] [address] Lymphocyte %, Manual 12.0 % Low 20.0-40.0 [facility] Comment on above: Performed By: #### G FR, PBNP, MDW, DIFF, CBC, MG, BMP, MORPH, TROPHS, DIMER #### [address] [address] Lymphocyte, Abs Manual 0.8 10 3/mcL Low 0.9-4.3 [facility] Comment on above: Performed By: #### G FR, PBNP, MDW, DIFF, CBC, MG, BMP, MORPH, TROPHS, DIMER #### [address] [address] Monocyte %, Manual 6.0 % Normal 2.0-13.0 [facility] Comment on above: Performed By: #### G FR, PBNP, MDW, DIFF, CBC, MG, BMP, MORPH, TROPHS, DIMER #### [address] [address] Monocyte, Abs Manual 0.4 10 3/mcL Normal 0.1-1.4 [facility] Comment on above: Performed By: #### G FR, PBNP, MDW, DIFF, CBC, MG, BMP, MORPH, TROPHS, DIMER #### [address] [address] Neutrophil %, Manual 77.0 % High 50.0-75.0 [facility] Comment on above: Performed By: #### G FR, PBNP, MDW, DIFF, CBC, MG, BMP, MORPH, TROPHS, DIMER #### [address] [address] Neutrophil, Abs Manual 5.5 10 3/mcL Normal 2.3-8.1 [facility] Comment on above: Performed By: #### G FR, PBNP, MDW, DIFF, CBC, MG, BMP, MORPH, TROPHS, DIMER #### [address] [address] Nucleated RBC 0.0 /100 WBC Normal [facility] Comment on above: Performed By: #### G FR, PBNP, MDW, DIFF, CBC, MG, BMP, MORPH, TROPHS, DIMER #### [address] [address] .Morphon 02-09-2025 Anisocytosis Ql (Bld) 2+ Normal [facility] Comment on above: Performed By: #### G FR, PBNP, MDW, DIFF, CBC, MG, BMP, MORPH, TROPHS, DIMER #### [address] [address] Ovalocytes 1+ Normal [facility] Comment on above: Performed By: #### G FR, PBNP, MDW, DIFF, CBC, MG, BMP, MORPH, TROPHS, DIMER #### [address] [address] Platelet Estimate Normal Normal [facility] Comment on above: Performed By: #### G FR, PBNP, MDW, DIFF, CBC, MG, BMP, MORPH, TROPHS, DIMER #### [address] [address] Poik 1+ Normal [facility] Comment on above: Performed By: #### G FR, PBNP, MDW, DIFF, CBC, MG, BMP, MORPH, TROPHS, DIMER #### [address] [address] .Urinalysis Microscopic (AO) on 02-09-2025 UA RBC 5-10 Abnormal None Seen [facility] Comment on above: Performed By: #### U [place] UAMICAO #### [address] [address] UA Squam Epithelial 0-5 Abnormal None Seen [facility] Comment on above: Performed By: #### U A UAMICAO #### [address] [address] UA WBC LOADED Abnormal None Seen [facility] Comment on above: Performed By: #### Gloria Junior UAMICAO #### [address] [address] BMPon 02-09-2025 BUN/Creatinine Ratio 9 ratio Normal 7-27 [facility] Comment on above: Performed By: #### C VFLURV #### [address] [address] Calcium [Mass/Vol] 8.0 mg/dL Low 8.4-10.2 [facility] Comment on above: Performed By: #### C VFLURV #### [address] [address] Chloride [Moles/Vol] 107 mmol/L Normal 98-107 [facility] Comment on above: Performed By: #### C VFLURV #### [address] [address] CO2 [Moles/Vol] 20 mmol/L Low 22-29 [facility] Comment on above: Performed By: #### C VFLURV #### [address] [address] Creatinine [Mass/Vol] 6.19 mg/dL High 0.70-1.30 [facility] Comment on above: Result Comment: Test ing performed on Siemens Dimension EXL analyzer using a modified kinetic Vickie technique. Performed By: #### C VFLURV #### [address] [address] Electrolyte Balance 10.0 mEq/L Normal 4.0-15.0 [facility] Comment on above: Performed By: #### C VFLURV #### [address] [address] Glucose [Mass/Vol] 220 mg/dL High 70-105 [facility] Comment on above: Performed By: #### C VFLURV #### [address] [address] Potassium [Moles/Vol] 7.9 mmol/L Critically abnormal 3.5-5.1 [facility] Comment on above: Performed By: #### C VFLURV #### [address] [address] Sodium [Moles/Vol] 137 mmol/L Normal 136-145 [facility] Comment on above: Performed By: #### C VFLURV #### [address] [address] Urea nitrogen [Mass/Vol] 57 mg/dL High 7-18 [facility] Comment on above: Performed By: #### C VFLURV #### [address] [address] CBCon 02-09-2025 Erythrocyte distribution width (RBC) [Ratio] 25.9 % High 11.5-15.5 [facility] Comment on above: Performed By: #### G FR, PBNP, MDW, DIFF, CBC, MG, BMP, MORPH, TROPHS, DIMER #### [address] [address] Hematocrit (Bld) [Volume fraction] 28.4 % Low 40.0-52.0 [facility] Comment on above: Performed By: #### G FR, PBNP, MDW, DIFF, CBC, MG, BMP, MORPH, TROPHS, DIMER #### [address] [address] Hgb 9.0 G/dL Low 13.0-17.5 [facility] Comment on above: Performed By: #### G FR, PBNP, MDW, DIFF, CBC, MG, BMP, MORPH, TROPHS, DIMER #### [address] [address] MCH (RBC) [Entitic mass] 24.5 pg Low 27.0-33.0 [facility] Comment on above: Performed By: #### G FR, PBNP, MDW, DIFF, CBC, MG, BMP, MORPH, TROPHS, DIMER #### [address] [address] MCHC 31.8 G/dL Low 32.0-36.0 [facility] Comment on above: Performed By: #### G FR, PBNP, MDW, DIFF, CBC, MG, BMP, MORPH, TROPHS, DIMER #### [place] [address] [place] [address] MCV (RBC) [Entitic vol] 76.9 fL Low 81.0-100.0 [facility] Comment on above: Performed By: #### G FR, PBNP, MDW, DIFF, CBC, MG, BMP, MORPH, TROPHS, DIMER #### [place] [address] Platelet 225 10 3/mcL Normal 150-450 [facility] Comment on above: Performed By: #### G FR, PBNP, MDW, DIFF, CBC, MG, BMP, MORPH, TROPHS, DIMER #### [place] [address] Platelet mean volume (Bld) [Entitic vol] 7.8 fL Normal 6.4-10.5 [facility] Comment on above: Performed By: #### G FR, PBNP, MDW, DIFF, CBC, MG, BMP, MORPH, TROPHS, DIMER #### [place] [id number] RBC 3.70 10 6/mcL Low 4.50-6.00 [facility] Comment on above: Performed By: #### G FR, PBNP, MDW, DIFF, CBC, MG, BMP, MORPH, TROPHS, DIMER #### [place] [address] WBC 7.1 10 3/mcL Normal 4.5-10.8 [facility] Comment on above: Performed By: #### G FR, PBNP, MDW, DIFF, CBC, MG, BMP, MORPH, TROPHS, DIMER #### [place] [id number] CVFLURVon 02-09-2025 FLU A PCR Negative Normal Negative [facility] Comment on above: Performed By: #### C VFLURV #### [place] [address] FLU B PCR Negative Normal Negative [facility] Comment on above: Performed By: #### C VFLURV #### [place] [address] RSV PCR Negative Normal Negative [facility] Comment on above: Performed By: #### C VFLURV #### [place] [address] SARS-CoV-2 (COVID-19) RNA MAZIN+probe Ql (Unsp spec) Negative Normal Negative [facility] Comment on above: Result Comment: [...] results. Performed By: #### C VFLURV #### [address] [address] DIMERon 02-09-2025 D-Dimer 374 ng/mL D-DU High 0-230 [facility] Comment on above: Result Comment: [...] CBC, MG, BMP, MORPH, TROPHS, DIMER #### [address] [address] Rainer 02-09-2025 Potassium [Moles/Vol] 6.4 mmol/L Critically abnormal 3.5-5.1 [facility] Comment on above: Performed By: #### C VFLURV #### [address] [address] Potassium [Moles/Vol] 6.4 mmol/L Critically abnormal 3.5-5.1 [facility] Comment on above: Performed By: #### K #### [address] [address] MGon 02-09-2025 Magnesium [Mass/Vol] 2.0 mg/dL Normal 1.8-2.4 [facility] Comment on above: Performed By: #### C VFLURV #### [address] [id number] PBNPon 02-09-2025 Natriuretic peptide B (Bld) [Mass/Vol] 88210 pg/mL High 0-125 [facility] Comment on above: Result Comment: NT-p roBNP results of less than 300 pg/mL effectively rules out acute congestive heart failure with 99% negative predictive value. Performed By: #### C VFLURV #### [address] [address] TROPHSon 02-09-2025 High Sensitivity Troponin I 19 ng/L Normal 0-76 [facility] Comment on above: Result Comment: High Sensitive Troponin I Reference Ranges: Female: 0-51 ng/L Male: 0-76 ng/L Testing performed on [employer] using a homogeneous sandwich chemiluminescent immunoassay based on [employer] technology. Performed By: #### C VFLURV #### [place] [address] UAon 02-09-2025 Color (U) Yellow Normal [facility] [facility] Comment on above: Performed By: #### U A, UAMICAO #### [place] [address] Glucose (U) [Mass/Vol] 250 mg/dL Abnormal Negative [facility] Comment on above: Performed By: #### U A, UAMICAO #### [place] [address] Ketones Ql (U) Negative Normal Negative [facility] Comment on above: Performed By: #### U A, UAMICAO #### [place] [address] UA Appear Clear Normal Clear [facility] Comment on above: Performed By: #### U A, UAMICAO #### [place] [address] UA Blood Large Abnormal Negative [facility] Comment on above: Performed By: #### U A, UAMICAO #### [place] [address] UA Leuk Est Small Abnormal Negative [facility] Comment on above: Performed By: #### U A, UAMICAO #### [place] [address] UA Nitrite Negative Normal Negative [facility] Comment on above: Performed By: #### U A, UAMICAO #### [place] [address] UA pH 6.5 Normal 5.0 - 8.0 [facility] Comment on above: Performed By: #### U A UAMICAO #### [place] [address] UA Protein >=300 Abnormal Negative [facility] Comment on above: Performed By: #### U A UAMICAO #### [place] [address] UA Spec Grav >=1.030 Abnormal 1.015-1.02 5 [facility] Comment on above: Performed By: #### U A UAMICAO #### [place] [address] UA Specimen Type Clean Catch Normal [facility] Comment on above: Performed By: #### U [place] UAMICAO #### [place] [address] UA Urobilinogen 0.2 E.U./dL Normal 0.2-1.0 [facility] Comment on above: Performed By: #### U [place] UAMICAO #### [place] [address] Urobilinogen (U) [Mass/Vol] Negative Normal Negative [facility] Comment on above: Performed By: #### U A UAMICAO #### [place] [address] XR CHEST 1 VIEWon 02-09-2025 XR CHEST [...] 02/09/2025 8:17:46 PM Ordering Provider: JIMENA HOGAN [facility] 02-05-2025 36 Noted. Agree with disposition. [facility] 36 S: Patient spoke emely mccoy [facility] nurse regarding trouble breathing at night. [...] or WORSE than normal Protocols used: Breathing [id number] [place] 5592001-29-2025 36 Rx sent [facility] 01-28-2025 36 Called patient and l eft detailed VM about message below. Advised to call office with any questions. Normal [facility] 36 Please let patient k now that the wound culture from the office is growing staph. Will send Bactrim Rx to his pharmacy for 10 days Normal [facility] [id number] 01-27-2025 [id number] 09-22-24 CSMA Gabapentin Normal S [facility] 3601-27-2025 36 Rx sent, OARRS repor t done, no inconsistencies, CS agreement in place [place] 5592001-26-2025 36 Spoke to pts ab out upcoming PAT 02/19/2025 and Surgery 02/26/2025 at [facility] Doctor: Prince HERNÁNDEZ (arrive 15 min early): [...] counter vitamins 3 days prior to surgery [facility] 36 Lvm to discuss upcom ing PAT and surgery as well as instructions [facility] Office Visiton 01-22-2025 Follow-up visit [id number] Gurinder Hahn 1975 M Date Provider Department Center 01/22/2025 [id number]-DTYKEJOSE MORRISONElizabeth U[facility] BAR None Family History Adopted: Yes Problem Relation Age of Onset No Known Problems Mother High Blood Pressure Father Heart disease Father COPD Father Diabetes Father Family Status - Relation Status Age at Mother Father Level of Service:36393 [place] OFFICE/OUTPATIENT ESTABLISHED MOD MDM 30 MIN Reason for Visit and Comments: Other [0] - 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 looks like snot dripping from the fistula - Gross hematuria - Chronic renal disease, stage IV, pt c/o odor in the groin [facility] Progress Noteon 01-22-2025 Progress Note Jose Morrison [...] gangrene Unable to locate operative reports from [facility] to determine exactly what was done [...] Nephro referral 09/17/24 progress note wound care ([place]) - reported Claire's back in March 2024 requiring multiple debridement and ICU stay, reported to have had a catheter at rehab but removed it himself, started to notice leakage of urine from somewhere besides penis 04/16/24 presented to [place] ED - 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 [facility] Progress Note We want to inform spike chu that your patient's blood pressure was noted to be elevated in our office today. We thank you for trusting us with your patient's health. Last BP: BP Readings from Last 3 Encounters: 01/22/25 (!) 215/128 12/09/24 139/73 09/22/24 138/86 [facility] Progress Note Please contact Isai and see if he can come in for a blood pressure check [facility] 36on 01-05-2025 36 Reviewed chart. Refi ll not appropriate, too soon. RX refused [facility] 36 Prescription Request : Last medication check: 09/22/24 Last physical exam: none Next scheduled appointment: 02/02/25 CSA 09/22/24 Last date of refill on this medication 12/29/24 [facility] 36on 12-30-2024 36 Lisset called in to cancel 12/30/24 appt in [place] w/DR Morrison states the patient isn't feeling well. Appt was already cancelled through [facility]. No rescheduling at this time. [facility] [id number] 12-29-2024 [id number] 09-22-24 CSMA Gabapentin Normal S [facility] 36on 12-29-2024 36 See [facility] 36 Rx re-sent since pharmacy is stating they do not have refill on file. OARRS report reviewed with no discrepancies. CSA signed in September 2024. [facility] 36 Spoke with DINA vasquez, states they do not have an active prescription on file for him. States the last one they have is from 11/21. Please send in new script. Thank you! [facility] 36 Name of caller: Gurinder Contact phone number: [phone] Relationship to Patient: patient Provider: Jair Practice: [...] business hours to return their call: Yes [facility] 36 Refill not due at th is time. [facility] 36 Refill not due at th is time. [facility] 36 Sent 12/22/2024 please refuse. [facility] 36 Duplicate please refuse. [place] [address] Not due for refill a t this time. [facility] 36 Melatonin and Tyleno l just sent on 12/22/2024 Rosuvastatin sent on 09/24/2024 for 90 days w/1 refill [facility] 36on 12-24-2024 36 Lisset called in stat ing she needs to cancel the patient's appt today 12/24/24 11:50 AM [place] w/DR Morrison. R/S now 12/30/24 9:40 AM w/DR Morrison in [place]. [facility] 36 Will discuss at his visit today. [place] [address]on 12-22-2024 36 Rx sent. Follow up a s scheduled. [facility] 36 Rx sent. Follow up a s scheduled. [facility] 36 Prescription Request : Last medication check: 09/22/24 Last physical exam: none Next scheduled appointment: 12/24/24 Last date of refill on this medication 10/27/24 60 tablets no refill [place] [address] Prescription Request : Last medication check: 09/22/24 Last physical exam: none Next scheduled appointment: 12/24/24 Last date of refill on this medication 11/20/24 30 and no refill [facility] 36on 12-16-2024 36 Pts gf called in to r/s appt on 12/18. He is now scheduled 12/24/[address] Morrison in [place] [facility] 36on 12-15-2024 36 Rx sent with a start date of 12/22/24 based on fill date in OARRS. OARRS report reviewed with no discrepancies. CSA signed in September 2024. 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 - Gross hematuria- Chronic renal disease, stage IV (HCC) [facility] 36 Prescription Request : Last medication check: 09/22/24 Last physical exam: 01/08/23 Next scheduled appointment: 12/24/24 Csa 09/22/24 Uds none Last date of refill on this medication 11/21/24 30 and no refill [facility] Office Visiton 12-09-2024 Follow-up visit [id number] Gurinder Hahn Ry 1975 M [place] Provider Department Center 12/09/2024 [id number] VELASQUEZ [facility] URO BAR None Family History Adopted: Yes Problem Relation Age of Onset No Known Problems Mother High Blood Pressure Father Heart disease Father COPD Father Diabetes Father Family Status - Relation Status Age at Mother Father Level of Service:06628 [place] OFFICE/OUTPATIENT NEW MODERATE MDM 45 MINUTES Reason for Visit and Comments: New Patient [542] - had sepsis and gangrene in testicle area, now has an open spot that urine is coming thru, urethral erosion, green discharge [facility] Progress Noteon 12-09-2024 Progress Note Ceci Quiroz [...] with Claire's gangrene. He was seen at [facility] in [place] and was transferred to [facility] in [place] and underwent extensive surgical debridement for Claire's [...] Medical History: Diagnosis Date Acute respiratory failure ([facility]) Acute vomiting 05/26/2021 Atrial fibrillation ([facility]) GERD (gastroesophageal reflux disease) Gout Hyperglycemia Hyperlipidemia Hypertension Necrotizing fasciitis ([facility]) 09/22/2024 Osteoarthritis Sepsis ([facility]) Sepsis, unspecified organism ([facility]) 06/30/2024 Type 2 diabetes mellitus without complication ([facility]/HCC) ([facility]) UTI symptoms 01/13/2021 Weight loss 07/17/2022 Past [...] 08/13/23 Yes MOIRA Peralta CNP Continuous Glucose Sustainable Development Policy Analyst (FreeStyle Yanni 3 Voca) device Use as directed 09/22/24 Yes MOIRA [...] taking: Reported on 12/09/2024 10/27/24 Phoebe Adam, DIRECTOR OF OPERATIONS - REGULATORY AFFAIRS INTERN omeprazole (PriLOSEC) [address] capsule take 1 capsule by mouth every morning and 1 every evening befo (more content not included)... [address] 12-08-2024 36 Rx sent. Follow up a s scheduled. [place] [address] Prescription Request : Last medication check: 09/22/2024 Last physical exam: none Next scheduled appointment: 12/24/2024 Last date of refill on this medication: 04/02/[address] 11-25-2024 36 Can we get an appointment scheduled for his diabetes management and I can address with them at his appointment. [address] 11-24-2024 36 Pts so called in to r/s appt. He is now scheduled 12/09/[address] 11-21-2024 [address] 11-20-2024 36 Reviewed chart. Refi ll appropriate. RX sent. [place] [address] Prescription Request : Last medication check: 09/22/24 Last physical exam: none Next scheduled appointment: none Last date of refill on this medication 10/29/24 30 and no refill [address] 11-06-2024 36 Refill not due for another couple of weeks. [place] [address] Prescription Request : Last medication check: 09/22/24 Last physical exam: none Next scheduled appointment: 11/17/24 CSA on file (date): 09/22/24 Last urine drug screen: none Last date of refill on this medication 10/20/24 30 and no refill [place] [address] Rx sent [place] [address] Prescription Request : Last medication check: 09/22/24 Last physical exam: 2020 Next scheduled appointment: 11/17/24 Last date of refill on this medication 09/23/24 100 strips and [address] 10-29-2024 36 Refill not appropriate. Normal [facility] 36 Sent in 1 week ago. [address] 10-27-2024 36 Noted. Rx sent. Normal [facility] 36 I do not see where w e have ever prescribed this medication for him. Recommend getting this from the managing provider. [place] [address] Rx sent. Follow up a s scheduled. [place] [address] Prescription Request : Last medication check: 09/22/24 Last physical exam: none Next scheduled appointment: 11/17/24 Last date of refill on this medication: 09/22/24 [place] [address] Prescription Request : Last medication check: 09/22/24 Last physical exam: none Next scheduled appointment: 11/17/24 Last date of refill on this medication: not found [place] [address] Should not need a re fill of his device. [place] [address] Prescription Request : Last medication check: 09/22/24 Last physical exam: 06/22/21 Next scheduled appointment: 11/17/24 Last date of refill on this medication 09/22/24 1 and no refill [address] 10-24-2024 [address] 10-21-2024 36 Patient confirmed Patient appointment on Sunday11/25/2024. [place] [address] Preferred contact number: [phone] Reason for Visit: New Patient 10-21-[address] Velasquez cancelled due to transportation issues. Please call to reschedule accordingly Urgency of Appointment: New Patient Medications in need of refill: NA [address] 09-26-2024 36 Spoke to patient, he will see when his roommate can bring him in for the recheck and call back to schedule. [facility] 36 ----- Message from MOIRA Alcaraz CNP sent at 09/26/2024 6:48 AM EST ----- Urine protein is high. Follow up with nephrology as directed. [address] 09-24-2024 36 Sig adjusted for Jesus [...] placed for FIT test and repeat CBC. [facility] 36on 09-23-2024 36 Spoke to patient, no [...] urine protein and urinalysis and culture. Normal [facility] 37on 09-22-2024 37 Please obtain echocardiogram result from [place]. [facility] Office Visiton 09-22-2024 Follow-up visit [id number] Gurinder Hahn 1975 M Date Provider Department Center 09/22/2024 [id number] ADAM [facility] Family History Adopted: Yes Problem Relation Age of Onset No Known Problems Mother High Blood Pressure Father Heart disease Father COPD Father Diabetes Father Family Status - Relation Status Age at Mother Father Level of Service:46483 [place] OFFICE/OUTPATIENT ESTABLISHED MOD MDM 30 MIN Reason for Visit and Comments: Blood Work [496007] Health Maintenance [872] - Echo- had done in the hospital Flu- declines Hiv/Hep C screen- declines Crcs- declines PNA- declines Dm Dental- not done Hep A- declines Covid- not done Care Management [875] [facility] Progress Noteon 09-22-2024 Progress Note Patient verified by last name and . [facility] Progress Note Patient Gurinder Hahn 49 y.o. [...] was 7.6% on 07/14/24. Was in the custodial for about 4-5 months and has been [...] following up with wound care center in [place] every 2 weeks and has been packing [...] No Trans (more content not included)... Normal [facility] 36on 09-11-2024 36 Reviewed chart. Refi ll appropriate. RX sent. Normal [facility] 36 Prescription Request : Last medication check: 04/05/23 Last physical exam: none Next scheduled appointment: 09/22/24 Last date of refill on this medication 08/11/24 30 and no refill Normal [facility] .Auto Diffon 06-30-2024 Basophil, Absolute 0.1 10 3/mcL Normal 0.0-0.3 [facility] ([place]) Comment on above: Performed By: #### G FR, CBC, ADIFF, ANEU, CMP, MG ####[address] [address] Basophils/100 WBC (Bld) 0.9 % Normal 0.0-2.5 [facility] ([place]) Comment on above: Performed By: #### G FR, CBC, ADIFF, ANEU, CMP, MG ####[address] [address] Eosinophil, Absolute 0.3 10 3/mcL Normal 0.0-0.7 [facility] ([place]) Comment on above: Performed By: #### G FR, CBC, ADIFF, ANEU, CMP, MG ####[address] [address] Eosinophils/100 WBC (Bld) 3.2 % Normal 0.0-6.0 [facility] ([place] Comment on above: Performed By: #### G FR, CBC, ADIFF, ANEU, CMP, MG ####[address] [address] Lymphocyte, Absolute 1.9 10 3/mcL Normal 0.9-4.3 [facility] ([place] Comment on above: Performed By: #### G FR, CBC, ADIFF, ANEU, CMP, MG ####[address] [address] Lymphocytes/100 WBC (Bld) 23.7 % Normal 20.0-40.0 [facility] ([place] Comment on above: Performed By: #### G FR, CBC, ADIFF, ANEU, CMP, MG ####[address] [address] Monocyte, Absolute 0.6 10 3/mcL Normal 0.1-1.4 [facility] ([place]) Comment on above: Performed By: #### G FR, CBC, ADIFF, ANEU, CMP, MG ####[address] [address] Monocytes/100 WBC (Bld) 7.8 % Normal 2.0-13.0 A [facility] ([place]) Comment on above: Performed By: #### G FR, CBC, ADIFF, ANEU, CMP, MG ####[address] [address] Neutrophils/100 WBC (Bld) 64.4 % Normal 50.0-75.0 [facility] ([place]) Comment on above: Performed By: #### G FR, CBC, ADIFF, ANEU, CMP, MG ####[address] [address] .GFRon 06-30-2024 GFR 45 ml/min/1.73sqm Normal [facility] ([place]) Comment on above: Result Comment: GFR Population [...] G FR, CBC, ADIFF, ANEU, CMP, MG ####[address] [address] GFR Non- 37 ml/min/1.73sqm Normal [facility] ([place]) Comment on above: Result Comment: GFR Population [...] G FR, CBC, ADIFF, ANEU, CMP, MG ####[address] [address] .NEUABSon 06-30-2024 Neutrophil, Absolute 5.2 10 3/mcL Normal 2.3-8.1 [facility] ([place]) Comment on above: Performed By: #### G FR, CBC, ADIFF, ANEU, CMP, MG ####[address] [address] .SMUSTon 06-30-2024 Smooth Muscle Ab Titer Pos 40 Normal [facility] ([place]) Comment on above: Result Comment: An A nti-smooth muscle antibody (ASMA) of 1:160 or greater isseen in approximately 80% of patients with HBSAG-neg ChronicActive Hepatitis (CAH). Low ASMA titers may be present inviral infections, malignancies and normal individuals. Performed By: #### G FR, [id number], DUANE, CMP, ANEU, ADIFF, CBC, PRO, SMUST, SMUSC, JOAQUIM, MG, HEPAC ####[place] [address] CBCon 06-30-2024 Erythrocyte distribution width (RBC) [Ratio] 20.5 % High 11.5-15.5 [facility] ([place] Comment on above: Performed By: #### G FR, CBC, ADIFF, ANEU, CMP, MG ####[place] [address] Hematocrit (Bld) [Volume fraction] 27.0 % Low 40.0-52.0 [facility] ([place] Comment on above: Performed By: #### G FR, CBC, ADIFF, ANEU, CMP, MG ####[place] [address] Hgb 8.7 G/dL Low 13.0-17.5 [facility] ([place] Comment on above: Performed By: #### G FR, CBC, ADIFF, ANEU, CMP, MG ####[place] [address] MCH (RBC) [Entitic mass] 27.3 pg Normal 27.0-33.0 [facility] ([place] Comment on above: Performed By: #### G FR, CBC, ADIFF, ANEU, CMP, MG ####[place] [address] MCHC 32.3 G/dL Normal 32.0-36.0 [facility] ([place]) Comment on above: Performed By: #### G FR, CBC, ADIFF, ANEU, CMP, MG ####[place] [address] MCV (RBC) [Entitic vol] 84.5 fL Normal 81.0-100.0 [facility] ([place]) Comment on above: Performed By: #### G FR, CBC, ADIFF, ANEU, CMP, MG ####[place] [address] Platelet 303 10 3/mcL Normal 150-450 [facility] ([place]) Comment on above: Performed By: #### G FR, CBC, ADIFF, ANEU, CMP, MG ####[place] [address] Platelet mean volume (Bld) [Entitic vol] 8.0 fL Normal 6.4-10.5 [facility] ([place] Comment on above: Performed By: #### G FR, CBC, ADIFF, ANEU, CMP, MG ####[place] [address] RBC 3.19 10 6/mcL Low 4.50-6.00 [facility] ([place] Comment on above: Performed By: #### G FR, CBC, ADIFF, ANEU, CMP, MG ####[address] [address] WBC 8.0 10 3/mcL Normal 4.5-10.8 [facility] ([place]) Comment on above: Performed By: #### G FR, CBC, ADIFF, ANEU, CMP, MG ####[address] [address] CMPon 06-30-2024 Albumin Level 1.6 G/dL Low 3.2-4.8 [facility] ([place]) Comment on above: Performed By: #### G FR, CBC, ADIFF, ANEU, CMP, MG ####[place] [address] Albumin/Globulin [Mass ratio] 0.3 {ratio} Low 0.9-1.6 [facility] ([place] Comment on above: Performed By: #### G FR, CBC, ADIFF, ANEU, CMP, MG ####[address] [address] ALP [Catalytic activity/Vol] 1437 U/L High 38-126 [facility] ([place] Comment on above: Performed By: #### G FR, CBC, ADIFF, ANEU, CMP, MG ####[address] [address] ALT [Catalytic activity/Vol] 129 U/L High 12-55 [facility] ([place] Comment on above: Performed By: #### G FR, CBC, ADIFF, ANEU, CMP, MG ####[address] [address] AST [Catalytic activity/Vol] 101 U/L High 8-34 [facility] ([place] Comment on above: Performed By: #### G FR, CBC, ADIFF, ANEU, CMP, MG ####[address] [address] Bili Total 0.40 mg/dL Normal 0.20-1.20 [facility] ([place]) Comment on above: Result Comment: Use of this assay is not recommended for patients undergoing treatment with eltrombopag due to the potential for falsely elevated results. Performed By: #### G FR, CBC, ADIFF, ANEU, CMP, MG ####[address] [address] BUN/Creatinine Ratio 16.0 ratio Normal 10.0-22.0 [facility] ([place]) Comment on above: Performed By: #### G FR, CBC, ADIFF, ANEU, CMP, MG ####[address] [address] Calcium [Mass/Vol] 8.2 mg/dL Low 8.7-10.4 [facility] ([place]) Comment on above: Performed By: #### G FR, CBC, ADIFF, ANEU, CMP, MG ####[address] [address] Chloride [Moles/Vol] 107 mmol/L Normal 98-110 [facility] ([place]) Comment on above: Performed By: #### G FR, CBC, ADIFF, ANEU, CMP, MG ####[place] [id number] CO2 [Moles/Vol] 24 mmol/L Normal 22-32 [facility] ([place] Comment on above: Performed By: #### G FR, CBC, ADIFF, ANEU, CMP, MG ####[place] [id number] Creatinine [Mass/Vol] 1.94 mg/dL High 0.60-1.40 [facility] ([place]) Comment on above: Performed By: #### G FR, CBC, ADIFF, ANEU, CMP, MG ####[address] [address] Electrolyte Balance 4.0 mEq/L Normal 4.0-15.0 [facility] ([place]) Comment on above: Performed By: #### G FR, CBC, ADIFF, ANEU, CMP, MG ####[address] [address] Globulin 5.2 G/dL High 1.5-3.8 [facility] ([place]) Comment on above: Performed By: #### G FR, CBC, ADIFF, ANEU, CMP, MG ####[place] [id number] [address] [place] [address] Glucose [Mass/Vol] 183 mg/dL High 70-110 [facility] ([place]) Comment on above: Performed By: #### G FR, CBC, ADIFF, ANEU, CMP, MG ####[address] [address] Potassium [Moles/Vol] 5.2 mmol/L High 3.5-5.0 [facility] ([place]) Comment on above: Result Comment: Spec imen slightly hemolyzed. Performed By: #### G FR, CBC, ADIFF, ANEU, CMP, MG ####[address] [address] Sodium [Moles/Vol] 135 mmol/L Low 136-145 [facility] ([place]) Comment on above: Performed By: #### G FR, CBC, ADIFF, ANEU, CMP, MG ####[address] [address] Total Protein 6.8 G/dL Normal 5.7-8.2 [facility] ([place]) Comment on above: Result Comment: No te - New Reference Range in effect 20 Performed By: #### G FR, CBC, ADIFF, ANEU, CMP, MG ####[address] [address] Urea nitrogen [Mass/Vol] 31.0 mg/dL High 8.0-22.0 [facility] ([place]) Comment on above: Performed By: #### G FR, CBC, ADIFF, ANEU, CMP, MG ####[address] [address] LABORATORYOrdered By: Jean-Pierre Parrish on 06-30-2024 Blood Glucose Testing Reason Routine (06/30/24 4:06 PM) [facility] Work Phone: Glucose [Mass/Vol] 185 mg/dL High 70 - 110 mg/dL [facility] Work Phone: LABORATORYOrdered By: Chandler kate on 06-30-2024 Glucose [Mass/Vol] 252 mg/dL High 70 - 110 mg/dL [facility] Work Phone: Glucose [Mass/Vol] 147 mg/dL High 70 - 110 mg/dL [facility] Work Phone: LABORATORYOrdered By: SYSTEM [...] 06-30-2024 Magnesium [Mass/Vol] 1.7 mg/dL Normal 1.6-2.4 [facility] ([place] Comment on above: Performed By: #### G FR, CBC, ADIFF, ANEU, CMP, MG ####[address] [address] .Auto Diffon 06-29-2024 Basophil, Absolute 0.1 10 3/mcL Normal 0.0-0.3 [facility] ([place]) Comment on above: Performed By: #### A ARBEN, GFR, CMP, ADIFF, CBC ####[address] [address] Basophils/100 WBC (Bld) 1.0 % Normal 0.0-2.5 A [facility] [facility] ([place]) Comment on above: Performed By: #### A ARBEN, GFR, CMP, ADIFF, CBC ####[address] [address] Eosinophil, Absolute 0.3 10 3/mcL Normal 0.0-0.7 [facility] ([place]) Comment on above: Performed By: #### A ARBEN, GFR, CMP, ADIFF, CBC ####[address] [address] Eosinophils/100 WBC (Bld) 3.3 % Normal 0.0-6.0 [facility] ([place] Comment on above: Performed By: #### A ARBEN, GFR, CMP, ADIFF, CBC ####[address] [address] Lymphocyte, Absolute 1.9 10 3/mcL Normal 0.9-4.3 [facility] ([place] Comment on above: Performed By: #### A ARBEN, GFR, CMP, ADIFF, CBC ####[address] [address] Lymphocytes/100 WBC (Bld) 23.6 % Normal 20.0-40.0 [facility] ([place] Comment on above: Performed By: #### A ARBEN, GFR, CMP, ADIFF, CBC ####[address] [address] Monocyte, Absolute 0.7 10 3/mcL Normal 0.1-1.4 [facility] ([place]) Comment on above: Performed By: #### A ARBEN, GFR, CMP, ADIFF, CBC ####[address] [address] Monocytes/100 WBC (Bld) 8.1 % Normal 2.0-13.0 A [facility] ([place]) Comment on above: Performed By: #### A ARBEN, GFR, CMP, ADIFF, CBC ####[address] [address] Neutrophils/100 WBC (Bld) 64.0 % Normal 50.0-75.0 [facility] ([place] Comment on above: Performed By: #### A ARBEN, GFR, CMP, ADIFF, CBC ####[address] [address] .GFRon 06-29-2024 GFR 44 ml/min/1.73sqm Normal [facility] ([place] Comment on above: Result Comment: GFR Population [...] #### A ARBEN, GFR, CMP, ADIFF, CBC ####[place] [address] GFR Non- 37 ml/min/1.73sqm Normal [facility] ([place] Comment on above: Result Comment: GFR Population [...] #### A ARBEN, GFR, CMP, ADIFF, CBC ####[place] [address] .NEUABSon 06-29-2024 Neutrophil, Absolute 5.2 10 3/mcL Normal 2.3-8.1 [facility] ([place] Comment on above: Performed By: #### A ARBEN, GFR, CMP, ADIFF, CBC ####[place] [address] CBCon 06-29-2024 Erythrocyte distribution width (RBC) [Ratio] 20.1 % High 11.5-15.5 [facility] ([place] Comment on above: Performed By: #### A ARBEN, GFR, CMP, ADIFF, CBC ####[place] [address] Hematocrit (Bld) [Volume fraction] 26.5 % Low 40.0-52.0 [facility] ([place] Comment on above: Performed By: #### A ARBEN, GFR, CMP, ADIFF, CBC ####[place] [address] Hgb 8.6 G/dL Low 13.0-17.5 [facility] ([place] Comment on above: Performed By: #### A ARBEN, GFR, CMP, ADIFF, CBC ####[place] [address] MCH (RBC) [Entitic mass] 27.2 pg Normal 27.0-33.0 [facility] ([place] Comment on above: Performed By: #### A ARBEN, GFR, CMP, ADIFF, CBC ####[place] [address] MCHC 32.3 G/dL Normal 32.0-36.0 [facility] ([place] Comment on above: Performed By: #### A ARBEN, GFR, CMP, ADIFF, CBC ####[place] [address] MCV (RBC) [Entitic vol] 84.1 fL Normal 81.0-100.0 A [facility] ([place] Comment on above: Performed By: #### A ARBEN, GFR, CMP, ADIFF, CBC ####[place] [address] Platelet 304 10 3/mcL Normal 150-450 [facility] ([place] Comment on above: Performed By: #### A ARBEN, GFR, CMP, ADIFF, CBC ####[place] [address] Platelet mean volume (Bld) [Entitic vol] 8.0 fL Normal 6.4-10.5 [facility] ([place] Comment on above: Performed By: #### A ARBEN, GFR, CMP, ADIFF, CBC ####[place] [address] RBC 3.15 10 6/mcL Low 4.50-6.00 [facility] ([place] Comment on above: Performed By: #### A ARBEN, GFR, CMP, ADIFF, CBC ####[place] [address] WBC 8.2 10 3/mcL Normal 4.5-10.8 [facility] ([place] Comment on above: Performed By: #### A ARBEN, GFR, CMP, ADIFF, CBC ####[place] [address] CMPon 06-29-2024 Albumin Level 1.5 G/dL Low 3.2-4.8 [facility] ([place] Comment on above: Performed By: #### A ARBEN, GFR, CMP, ADIFF, CBC ####[address] [address] Albumin/Globulin [Mass ratio] 0.3 {ratio} Low 0.9-1.6 [facility] ([place] Comment on above: Performed By: #### A ARBEN, GFR, CMP, ADIFF, CBC ####[address] [address] ALP [Catalytic activity/Vol] 1446 U/L High 38-126 [facility] ([place] Comment on above: Performed By: #### A ARBEN, GFR, CMP, ADIFF, CBC ####[address] [address] ALT [Catalytic activity/Vol] 138 U/L High 12-55 [facility] ([place] Comment on above: Performed By: #### A ARBEN, GFR, CMP, ADIFF, CBC ####[place] [address] AST [Catalytic activity/Vol] 97 U/L High 8-34 [facility] ([place] Comment on above: Performed By: #### A ARBEN, GFR, CMP, ADIFF, CBC ####[address] [address] Bili Total 0.40 mg/dL Normal 0.20-1.20 [facility] ([place] Comment on above: Result Comment: Use of this assay is not recommended for patients undergoing treatment with eltrombopag due to the potential for falsely elevated results. Performed By: #### A ARBEN, GFR, CMP, ADIFF, CBC ####[place] [id number] BUN/Creatinine Ratio 14.7 ratio Normal 10.0-22.0 [facility] ([place]) Comment on above: Performed By: #### A ARBEN, GFR, CMP, ADIFF, CBC ####[address] [address] Calcium [Mass/Vol] 8.2 mg/dL Low 8.7-10.4 [facility] ([place]) Comment on above: Performed By: #### A ARBEN, GFR, CMP, ADIFF, CBC ####[address] [address] Chloride [Moles/Vol] 108 mmol/L Normal 98-110 [facility] ([place] Comment on above: Performed By: #### A ARBEN, GFR, CMP, ADIFF, CBC ####[address] [address] CO2 [Moles/Vol] 23 mmol/L Normal 22-32 [facility] ([place] Comment on above: Performed By: #### A ARBEN, GFR, CMP, ADIFF, CBC ####[address] [address] Creatinine [Mass/Vol] 1.97 mg/dL High 0.60-1.40 [facility] ([place]) Comment on above: Performed By: #### A ARBEN, GFR, CMP, ADIFF, CBC ####[address] [address] Electrolyte Balance 6.0 mEq/L Normal 4.0-15.0 [facility] ([place]) Comment on above: Performed By: #### A ARBEN, GFR, CMP, ADIFF, CBC ####[address] [address] Globulin 5.1 G/dL High 1.5-3.8 [facility] ([place] Comment on above: Performed By: #### A ARBEN, GFR, CMP, ADIFF, CBC ####[address] [address] Glucose [Mass/Vol] 174 mg/dL High 70-110 [facility] ([place] Comment on above: Performed By: #### A ARBEN, GFR, CMP, ADIFF, CBC ####[address] [address] Potassium [Moles/Vol] 5.0 mmol/L Normal 3.5-5.0 [facility] ([place]) Comment on above: Performed By: #### A ARBEN, GFR, CMP, ADIFF, CBC ####[place] [id number] [address] [place] [address] Sodium [Moles/Vol] 137 mmol/L Normal 136-145 [facility] ([place]) Comment on above: Performed By: #### A ARBEN, GFR, CMP, ADIFF, CBC ####[address] [address] Total Protein 6.6 G/dL Normal 5.7-8.2 [facility] ([place] Comment on above: Result Comment: No te - New Reference Range in effect 20 Performed By: #### A ARBEN, GFR, CMP, ADIFF, CBC ####[address] [address] Urea nitrogen [Mass/Vol] 29.0 mg/dL High 8.0-22.0 [facility] [place] Comment on above: Performed By: #### A ARBEN, GFR, CMP, ADIFF, CBC ####[address] [address] LABORATORYOrdered By: SYSTEM SYSTEM on 06-29-2024 Albumin [...] [Vol rate/Area] 44 ml/min/1.73sqm Invalid Interpretation Code [employer] S Comment on above: Interpretive Data: [...] [Vol rate/Area] 37 ml/min/1.73sqm Invalid Interpretation Code [employer] S Comment on above: Interpretive Data: [...] Basophil, Absolute 0.1 10 3/mcL Normal 0.0-0.3 [facility] ([place] Comment on above: Performed By: #### C BC, CMP, ADIFF, ANEU, GFR, MG ####[address] [address] Basophils/100 WBC (Bld) 0.8 % Normal 0.0-2.5 A [facility] ([place] Comment on above: Performed By: #### C BC, CMP, ADIFF, ANEU, GFR, MG ####[place] [id number] [address] [place] [address] Eosinophil, Absolute 0.3 10 3/mcL Normal 0.0-0.7 [facility] ([place] Comment on above: Performed By: #### C BC, CMP, ADIFF, ANEU, GFR, MG ####[place] [id number] [address] [place] [address] Eosinophils/100 WBC (Bld) 3.6 % Normal 0.0-6.0 [facility] ([place] Comment on above: Performed By: #### C BC, CMP, ADIFF, ANEU, GFR, MG ####[address] [address] Lymphocyte, Absolute 1.8 10 3/mcL Normal 0.9-4.3 [facility] ([place] Comment on above: Performed By: #### C BC, CMP, ADIFF, ANEU, GFR, MG ####[address] [address] Lymphocytes/100 WBC (Bld) 22.5 % Normal 20.0-40.0 [facility] [place] Comment on above: Performed By: #### C BC, CMP, ADIFF, ANEU, GFR, MG ####[address] [address] Monocyte, Absolute 0.7 10 3/mcL Normal 0.1-1.4 [facility] ([place] Comment on above: Performed By: #### C BC, CMP, ADIFF, ANEU, GFR, MG ####[address] [address] Monocytes/100 WBC (Bld) 8.8 % Normal 2.0-13.0 A [facility] ([place] Comment on above: Performed By: #### C BC, CMP, ADIFF, ANEU, GFR, MG ####[address] [address] Neutrophils/100 WBC (Bld) 64.3 % Normal 50.0-75.0 [facility] ([place] Comment on above: Performed By: #### C BC, CMP, ADIFF, ANEU, GFR, MG ####[address] [address] .GFRon 06-28-2024 GFR 44 ml/min/1.73sqm Normal [facility] ([place] Comment on above: Result Comment: GFR Population [...] C BC, CMP, ADIFF, ANEU, GFR, MG ####[address] [address] GFR Non- 37 ml/min/1.73sqm Normal [facility] ([place] Comment on above: Result Comment: GFR Population [...] C BC, CMP, ADIFF, ANEU, GFR, MG ####[place] [address] .NEUABSon 06-28-2024 Neutrophil, Absolute 5.1 10 3/mcL Normal 2.3-8.1 [facility] [place] Comment on above: Performed By: #### C BC, CMP, ADIFF, ANEU, GFR, MG ####[place] [address] CBCon 06-28-2024 Erythrocyte distribution width (RBC) [Ratio] 20.2 % High 11.5-15.5 [facility] [place] Comment on above: Performed By: #### C BC, CMP, ADIFF, ANEU, GFR, MG ####[place] [address] Hematocrit (Bld) [Volume fraction] 26.4 % Low 40.0-52.0 [facility] [place] Comment on above: Performed By: #### C BC, CMP, ADIFF, ANEU, GFR, MG ####[place] [address] Hgb 8.8 G/dL Low 13.0-17.5 [facility] [place] Comment on above: Performed By: #### C BC, CMP, ADIFF, ANEU, GFR, MG ####[place] [address] MCH (RBC) [Entitic mass] 28.5 pg Normal 27.0-33.0 [facility] ([place] Comment on above: Performed By: #### C BC, CMP, ADIFF, ANEU, GFR, MG ####[place] [address] MCHC 33.4 G/dL Normal 32.0-36.0 [facility] [place] Comment on above: Performed By: #### C BC, CMP, ADIFF, ANEU, GFR, MG ####[place] [address] MCV (RBC) [Entitic vol] 85.1 fL Normal 81.0-100.0 A [facility] ([place] Comment on above: Performed By: #### C BC, CMP, ADIFF, ANEU, GFR, MG ####[place] [address] Platelet 285 10 3/mcL Normal 150-450 [facility] ([place] Comment on above: Performed By: #### C BC, CMP, ADIFF, ANEU, GFR, MG ####[place] [address] Platelet mean volume (Bld) [Entitic vol] 8.0 fL Normal 6.4-10.5 [facility] ([place] Comment on above: Performed By: #### C BC, CMP, ADIFF, ANEU, GFR, MG ####[place] [address] RBC 3.10 10 6/mcL Low 4.50-6.00 [facility] ([place] Comment on above: Performed By: #### C BC, CMP, ADIFF, ANEU, GFR, MG ####[place] [address] WBC 8.0 10 3/mcL Normal 4.5-10.8 [facility] ([place] Comment on above: Performed By: #### C BC, CMP, ADIFF, ANEU, GFR, MG ####[address] [address] CMPon 06-28-2024 Albumin Level 1.5 G/dL Low 3.2-4.8 [facility] ([place] Comment on above: Performed By: #### C BC, CMP, ADIFF, ANEU, GFR, MG ####[address] [address] Albumin/Globulin [Mass ratio] 0.3 {ratio} Low 0.9-1.6 [facility] ([place] Comment on above: Performed By: #### C BC, CMP, ADIFF, ANEU, GFR, MG ####[address] [address] ALP [Catalytic activity/Vol] 1526 U/L High 38-126 [facility] ([place] Comment on above: Performed By: #### C BC, CMP, ADIFF, ANEU, GFR, MG ####[address] [address] ALT [Catalytic activity/Vol] 169 U/L High 12-55 [facility] ([place] Comment on above: Performed By: #### C BC, CMP, ADIFF, ANEU, GFR, MG ####[address] [address] AST [Catalytic activity/Vol] 132 U/L High 8-34 [facility] ([place] Comment on above: Performed By: #### C BC, CMP, ADIFF, ANEU, GFR, MG ####[place] [address] Bili Total 0.40 mg/dL Normal 0.20-1.20 [facility] ([place] Comment on above: Result Comment: Use of this assay is not recommended for patients undergoing treatment with eltrombopag due to the potential for falsely elevated results. Performed By: #### C BC, CMP, ADIFF, ANEU, GFR, MG ####[place] [address] BUN/Creatinine Ratio 13.7 ratio Normal 10.0-22.0 [facility] ([place] Comment on above: Performed By: #### C BC, CMP, ADIFF, ANEU, GFR, MG ####[address] [address] Calcium [Mass/Vol] 7.9 mg/dL Low 8.7-10.4 [facility] ([place] Comment on above: Performed By: #### C BC, CMP, ADIFF, ANEU, GFR, MG ####[address] [address] Chloride [Moles/Vol] 110 mmol/L Normal 98-110 [facility] ([place] Comment on above: Performed By: #### C BC, CMP, ADIFF, ANEU, GFR, MG ####[place] [id number] CO2 [Moles/Vol] 23 mmol/L Normal 22-32 [facility] [place] Comment on above: Performed By: #### C BC, CMP, ADIFF, ANEU, GFR, MG ####[address] [address] Creatinine [Mass/Vol] 1.97 mg/dL High 0.60-1.40 [facility] ([place] Comment on above: Performed By: #### C BC, CMP, ADIFF, ANEU, GFR, MG ####[address] [address] Electrolyte Balance 2.0 mEq/L Low 4.0-15.0 [facility] ([place] Comment on above: Performed By: #### C BC, CMP, ADIFF, ANEU, GFR, MG ####[address] [address] Globulin 5.0 G/dL High 1.5-3.8 [facility] [place] Comment on above: Performed By: #### C BC, CMP, ADIFF, ANEU, GFR, MG ####[address] [address] Glucose [Mass/Vol] 167 mg/dL High 70-110 [facility] ([place] Comment on above: Performed By: #### C BC, CMP, ADIFF, ANEU, GFR, MG ####[place] [id number] [address] [place] [address] Potassium [Moles/Vol] 4.8 mmol/L Normal 3.5-5.0 [facility] [place] Comment on above: Performed By: #### C BC, CMP, ADIFF, ANEU, GFR, MG ####[address] [address] Sodium [Moles/Vol] 135 mmol/L Low 136-145 [facility] ([place] Comment on above: Performed By: #### C BC, CMP, ADIFF, ANEU, GFR, MG ####[address] [address] Total Protein 6.5 G/dL Normal 5.7-8.2 [facility] [place] Comment on above: Result Comment: No te - New Reference Range in effect 20 Performed By: #### C BC, CMP, ADIFF, ANEU, GFR, MG ####[address] [address] Urea nitrogen [Mass/Vol] 27.0 mg/dL High 8.0-22.0 [facility] [place] Comment on above: Performed By: #### C BC, CMP, ADIFF, ANEU, GFR, MG ####[address] [address] LABORATORYOrdered By: SYSTEM SYSTEM on 06-28-2024 Albumin [...] 06-28-2024 Magnesium [Mass/Vol] 1.6 mg/dL Normal 1.6-2.4 [facility] [place] Comment on above: Performed By: #### C BC, CMP, ADIFF, ANEU, GFR, MG ####[address] [address] .Auto Diffon 06-27-2024 Basophil, Absolute 0.1 10 3/mcL Normal 0.0-0.3 [facility] [place] Comment on above: Performed By: #### A ARBEN, ADIFF, CBC, CMP, MG, GFR ####[address] [address] Basophils/100 WBC (Bld) 1.1 % Normal 0.0-2.5 A [facility] ([place] Comment on above: Performed By: #### A ARBEN, ADIFF, CBC, CMP, MG, GFR ####[address] [address] Eosinophil, Absolute 0.3 10 3/mcL Normal 0.0-0.7 [facility] [place] Comment on above: Performed By: #### A ARBEN, ADIFF, CBC, CMP, MG, GFR ####[address] [address] Eosinophils/100 WBC (Bld) 3.8 % Normal 0.0-6.0 [facility] [place] Comment on above: Performed By: #### A ARBEN, ADIFF, CBC, CMP, MG, GFR ####[address] [address] Lymphocyte, Absolute 2.0 10 3/mcL Normal 0.9-4.3 [facility] [place] Comment on above: Performed By: #### A ARBEN, ADIFF, CBC, CMP, MG, GFR ####[address] [address] Lymphocytes/100 WBC (Bld) 27.9 % Normal 20.0-40.0 [facility] [place] Comment on above: Performed By: #### A ARBEN, ADIFF, CBC, CMP, MG, GFR ####[address] [address] Monocyte, Absolute 0.7 10 3/mcL Normal 0.1-1.4 [facility] ([place] Comment on above: Performed By: #### A ARBEN, ADIFF, CBC, CMP, MG, GFR ####[address] [address] Monocytes/100 WBC (Bld) 9.5 % Normal 2.0-13.0 A [facility] ([place] Comment on above: Performed By: #### A ARBEN, ADIFF, CBC, CMP, MG, GFR ####[address] [address] Neutrophils/100 WBC (Bld) 57.7 % Normal 50.0-75.0 [facility] [place] Comment on above: Performed By: #### A ARBEN, ADIFF, CBC, CMP, MG, GFR ####[address] [address] .GFRon 06-27-2024 GFR 49 ml/min/1.73sqm Normal [facility] [place] Comment on above: Result Comment: GFR Population [...] A ARBEN, ADIFF, CBC, CMP, MG, GFR ####[place] [address] GFR Non- 40 ml/min/1.73sqm Normal [facility] [place] Comment on above: Result Comment: GFR Population [...] A ARBEN, ADIFF, CBC, CMP, MG, GFR ####[address] [address] .NEUABSon 06-27-2024 Neutrophil, Absolute 4.1 10 3/mcL Normal 2.3-8.1 [facility] ([place] Comment on above: Performed By: #### A ARBEN, ADIFF, CBC, CMP, MG, GFR ####[place] [address] ALKISOon 06-27-2024 ALP [Catalytic activity/Vol] 2012 U/L High 44-121 [facility] ([place] Comment on above: Result Comment: Resu lts confirmed ondilution. Performed By: #### G FR, [id number], DUANE, CMP, ANEU, ADIFF, CBC, PRO, SMUST, SMUSC, JOAQUIM, MG, HEPAC ####[place] [address] ALP Bone Frac 32 % Normal 12-68 [facility] ([place] Comment on above: Performed By: #### G FR, [id number], DUANE, CMP, ANEU, ADIFF, CBC, PRO, SMUST, SMUSC, JOAQUIM, MG, HEPAC ####[place] [address] ALP Intest Frac 0 % Normal 0-18 [facility] ([place] Comment on above: Result Comment: Perf ormed At: [facility] [address] [id number] Vincent PhD Ph:[phone] Performed By: #### G FR, [id number], DUANE, CMP, ANEU, ADIFF, CBC, PRO, SMUST, SMUSC, JOAQUIM, MG, HEPAC ####[place] [address] ALP Liver Frac 68 % Normal 13-88 [facility] ([place] Comment on above: Performed By: #### G FR, [id number], DUANE, CMP, ANEU, ADIFF, CBC, PRO, SMUST, SMUSC, JOAQUIM, MG, HEPAC ####[place] [address] ANAon 06-27-2024 Nuclear Ab IF (S) [Titer] 40 {titer} Normal Neg 40 [facility] ([place] Comment on above: Result Comment: DUANE Screen and Titer methodology is an immunofluorescent technique utilizing Hep2 Substrate. Performed By: #### G FR, [id number], DUANE, CMP, ANEU, ADIFF, CBC, PRO, SMUST, SMUSC, JOAQUIM, MG, HEPAC ####[place] [address] CBCon 06-27-2024 Erythrocyte distribution width (RBC) [Ratio] 20.3 % High 11.5-15.5 [facility] [place] Comment on above: Performed By: #### A ARBEN, ADIFF, CBC, CMP, MG, GFR ####[place] [address] Hematocrit (Bld) [Volume fraction] 26.7 % Low 40.0-52.0 [facility] [place] Comment on above: Performed By: #### A ARBEN, ADIFF, CBC, CMP, MG, GFR ####[place] [address] Hgb 8.5 G/dL Low 13.0-17.5 [facility] [place] Comment on above: Performed By: #### A ARBEN, ADIFF, CBC, CMP, MG, GFR ####[place] [address] MCH (RBC) [Entitic mass] 26.8 pg Low 27.0-33.0 [facility] [place] Comment on above: Performed By: #### A ARBEN, ADIFF, CBC, CMP, MG, GFR ####[place] [address] MCHC 31.7 G/dL Low 32.0-36.0 [facility] [place] Comment on above: Performed By: #### A ARBEN, ADIFF, CBC, CMP, MG, GFR ####[place] [address] MCV (RBC) [Entitic vol] 84.5 fL Normal 81.0-100.0 A [facility] ([place] Comment on above: Performed By: #### A ARBEN, ADIFF, CBC, CMP, MG, GFR ####[place] [address] Platelet 308 10 3/mcL Normal 150-450 [facility] [place] Comment on above: Performed By: #### A ARBEN, ADIFF, CBC, CMP, MG, GFR ####[place] [address] Platelet mean volume (Bld) [Entitic vol] 7.8 fL Normal 6.4-10.5 [facility] [place] Comment on above: Performed By: #### A ARBEN, ADIFF, CBC, CMP, MG, GFR ####[place] [id number] RBC 3.16 10 6/mcL Low 4.50-6.00 [facility] [place] Comment on above: Performed By: #### A ARBEN, ADIFF, CBC, CMP, MG, GFR ####[place] [address] WBC 7.1 10 3/mcL Normal 4.5-10.8 [facility] [place] Comment on above: Performed By: #### A ARBEN, ADIFF, CBC, CMP, MG, GFR ####[place] [address] CMPon 06-27-2024 ALP [Catalytic activity/Vol] 1616 U/L High 38-126 [facility] [place] Comment on above: Performed By: #### A ARBEN, ADIFF, CBC, CMP, MG, GFR ####[place] [address] Albumin Level 1.4 G/dL Low 3.2-4.8 [facility] [place] Comment on above: Performed By: #### A ARBEN, ADIFF, CBC, CMP, MG, GFR ####[place] [address] Albumin/Globulin [Mass ratio] 0.3 {ratio} Low 0.9-1.6 [facility] [place] Comment on above: Performed By: #### A ARBEN, ADIFF, CBC, CMP, MG, GFR ####[place] [address] ALT [Catalytic activity/Vol] 212 U/L High 12-55 [facility] [place] Comment on above: Performed By: #### A ARBEN, ADIFF, CBC, CMP, MG, GFR ####[address] [address] AST [Catalytic activity/Vol] 218 U/L High 8-34 [facility] [place] Comment on above: Performed By: #### A ARBEN, ADIFF, CBC, CMP, MG, GFR ####[address] [address] Bili Total 0.30 mg/dL Normal 0.20-1.20 [facility] [place] Comment on above: Result Comment: Use of this assay is not recommended for patients undergoing treatment with eltrombopag due to the potential for falsely elevated results. Performed By: #### A ARBEN, ADIFF, CBC, CMP, MG, GFR ####[place] [address] BUN/Creatinine Ratio 14.3 ratio Normal 10.0-22.0 [facility] [place] Comment on above: Performed By: #### A ARBEN, ADIFF, CBC, CMP, MG, GFR ####[address] [address] Calcium [Mass/Vol] 7.7 mg/dL Low 8.7-10.4 [facility] ([place] Comment on above: Performed By: #### A ARBEN, ADIFF, CBC, CMP, MG, GFR ####[address] [address] Chloride [Moles/Vol] 109 mmol/L Normal 98-110 [facility] [place] Comment on above: Performed By: #### A ARBEN, ADIFF, CBC, CMP, MG, GFR ####[address] [address] CO2 [Moles/Vol] 21 mmol/L Low 22-32 [facility] [place] Comment on above: Performed By: #### A ARBEN, ADIFF, CBC, CMP, MG, GFR ####[address] [address] Creatinine [Mass/Vol] 1.82 mg/dL High 0.60-1.40 [facility] ([place] Comment on above: Performed By: #### A ARBEN, ADIFF, CBC, CMP, MG, GFR ####[address] [address] Electrolyte Balance 6.0 mEq/L Normal 4.0-15.0 [facility] ([place] Comment on above: Performed By: #### A ARBEN, ADIFF, CBC, CMP, MG, GFR ####[address] [address] Globulin 5.0 G/dL High 1.5-3.8 [facility] [place] Comment on above: Performed By: #### A ARBEN, ADIFF, CBC, CMP, MG, GFR ####[address] [address] Glucose [Mass/Vol] 217 mg/dL High 70-110 [facility] ([place] Comment on above: Performed By: #### A ARBEN, ADIFF, CBC, CMP, MG, GFR ####[address] [address] Potassium [Moles/Vol] 4.9 mmol/L Normal 3.5-5.0 [facility] [place] Comment on above: Performed By: #### A ARBEN, ADIFF, CBC, CMP, MG, GFR ####[address] [address] Sodium [Moles/Vol] 136 mmol/L Normal 136-145 [facility] ([place] Comment on above: Performed By: #### A ARBEN, ADIFF, CBC, CMP, MG, GFR ####[place] [address] Total Protein 6.4 G/dL Normal 5.7-8.2 [facility] ([place]) Comment on above: Result Comment: No te - New Reference Range in effect 20 Performed By: #### A ARBEN, ADIFF, CBC, CMP, MG, GFR ####[address] [address] Urea nitrogen [Mass/Vol] 26.0 mg/dL High 8.0-22.0 [facility] ([place]) Comment on above: Performed By: #### A ARBEN, ADIFF, CBC, CMP, MG, GFR ####[address] [address] LABORATORYOrdered By: SYSTEM SYSTEM on 06-27-2024 Magnesium [Mass/Vol] 1.7 mg/dL Normal 1.6 - 2 .4 mg/dL AH ADM SS MGon 06-27-2024 Magnesium [Mass/Vol] 1.7 mg/dL Normal 1.6-2.4 [facility] ([place]) Comment on above: Performed By: #### A ARBEN, ADIFF, CBC, CMP, MG, GFR ####[address] [address] MITOon 06-27-2024 Mitochondrial Ab Neg 20 Normal Neg 20 [facility] ([place]) Comment on above: Result Comment: Joaquim chondrial Ab Screen and Titer methodology is an immunofluorescent technique utilizing MSK Substrate. Performed By: #### Elizabeth FR, [id number], DUANE, CMP, ANEU, ADIFF, CBC, PRO, SMUST, SMUSC, JOQAUIM, MG, HEPAC ####[place] [address] SMUSCon 06-27-2024 Smooth Muscle Ab See Titer Normal Neg 20 [facility] ([place]) Comment on above: Result Comment: Smoo th Muscle Ab Screen and Titer methodology is an immunofluorescent technique utilizing MSK Substrate. Performed By: #### Elizabeth FR, [id number], DUANE, CMP, ANEU, ADIFF, CBC, PRO, SMUST, SMUSC, JOAQUIM, MG, HEPAC ####[address] [address] .Auto Diffon 06-26-2024 Basophil, Absolute 0.1 10 3/mcL Normal 0.0-0.3 [facility] ([place]) Comment on above: Performed By: #### G FR, [id number], DUANE, CMP, ANEU, ADIFF, CBC, PRO, SMUST, SMUSC, JOAQUIM, MG, HEPAC ####[address] [address] Basophils/100 WBC (Bld) 1.2 % Normal 0.0-2.5 A [facility] ([place]) Comment on above: Performed By: #### Elizabeth FR, [id number], DUANE, CMP, ANEU, ADIFF, CBC, PRO, SMUST, SMUSC, JOAQUIM, MG, HEPAC ####[address] [address] Eosinophil, Absolute 0.3 10 3/mcL Normal 0.0-0.7 [facility] ([place]) Comment on above: Performed By: #### Elizabeth FR, 501227, DUNAE, CMP, ANEU, ADIFF, CBC, PRO, SMUST, SMUSC, JOAQUIM, MG, HEPAC ####[address] [address] Eosinophils/100 WBC (Bld) 4.4 % Normal 0.0-6.0 [facility] ([place] Comment on above: Performed By: #### Elizabeth SOTO, [id number], DUANE, CMP, ANEU, ADIFF, CBC, PRO, SMUST, SMUSC, JOAQUIM, MG, HEPAC ####[address] [address] Lymphocyte, Absolute 1.9 10 3/mcL Normal 0.9-4.3 [facility] ([place]) Comment on above: Performed By: #### Elizabeth SOTO, [id number], DUANE, CMP, ANEU, ADIFF, CBC, PRO, SMUST, SMUSC, JOAQUIM, MG, HEPAC ####[address] [address] Lymphocytes/100 WBC (Bld) 23.8 % Normal 20.0-40.0 [facility] ([place] Comment on above: Performed By: #### Elizabeth FR, 779653, DUANE, CMP, ANEU, ADIFF, CBC, PRO, SMUST, SMUSC, JOAQUIM, MG, HEPAC ####[address] [address] Monocyte, Absolute 0.7 10 3/mcL Normal 0.1-1.4 [facility] ([place]) Comment on above: Performed By: #### Elizabeth SOTO, [id number], DUANE, CMP, ANEU, ADIFF, CBC, PRO, SMUST, SMUSC, JOAQUIM, MG, HEPAC ####[place] [address] Monocytes/100 WBC (Bld) 9.5 % Normal 2.0-13.0 A [facility] ([place]) Comment on above: Performed By: #### G FR, [id number], DUANE, CMP, ANEU, ADIFF, CBC, PRO, SMUST, SMUSC, JOAQUIM, MG, HEPAC ####[address] [address] Neutrophils/100 WBC (Bld) 61.1 % Normal 50.0-75.0 [facility] ([place]) Comment on above: Performed By: #### G FR, [id number], DUANE, CMP, ANEU, ADIFF, CBC, PRO, SMUST, SMUSC, JOAQUIM, MG, HEPAC ####[address] [address] .GFRon 06-26-2024 GFR 46 ml/min/1.73sqm Normal [facility] ([place]) Comment on above: Result Comment: [...] square meters Performed By: #### G FR, 195032, DUANE, CMP, ANEU, ADIFF, CBC, PRO, SMUST, SMUSC, JOAQUIM, MG, HEPAC ####[address] [address] GFR Non- 38 ml/min/1.73sqm Normal [facility] ([place]) Comment on above: Result Comment: [...] square meters Performed By: #### G , [id number], DUANE, CMP, ANEU, ADIFF, CBC, PRO, SMUST, SMUSC, JOAQUIM, MG, HEPAC ####[place] [address] .NEUABSon 06-26-2024 Neutrophil, Absolute 4.8 10 3/mcL Normal 2.3-8.1 [facility] ([place] Comment on above: Performed By: #### Elizabeth SOTO, [id number], DUANE, CMP, ANEU, ADIFF, CBC, PRO, SMUST, SMUSC, JOAQUIM, MG, HEPAC ####[place] [address] CBCon 06-26-2024 Erythrocyte distribution width (RBC) [Ratio] 19.8 % High 11.5-15.5 [facility] ([place] Comment on above: Performed By: #### G , 545751, DUANE, CMP, ANEU, ADIFF, CBC, PRO, SMUST, SMUSC, JOAQUIM, MG, HEPAC ####[place] [address] Hematocrit (Bld) [Volume fraction] 26.1 % Low 40.0-52.0 [facility] ([place] Comment on above: Performed By: #### Elizabeth SOTO, [id number], DUANE, CMP, ANEU, ADIFF, CBC, PRO, SMUST, SMUSC, JOAQUIM, MG, HEPAC ####[place] [address] Hgb 8.4 G/dL Low 13.0-17.5 [facility] ([place] Comment on above: Performed By: #### Elizabeth FR, 887149, DUANE, CMP, ANEU, ADIFF, CBC, PRO, SMUST, SMUSC, JOAQUIM, MG, HEPAC ####[place] [address] MCH (RBC) [Entitic mass] 26.9 pg Low 27.0-33.0 [facility] ([place] Comment on above: Performed By: #### G FR, [id number], DUANE, CMP, ANEU, ADIFF, CBC, PRO, SMUST, SMUSC, JOAQUIM, MG, HEPAC ####[place] [address] MCHC 32.3 G/dL Normal 32.0-36.0 [facility] ([place] Comment on above: Performed By: #### G FR, 189630, DUANE, CMP, ANEU, ADIFF, CBC, PRO, SMUST, SMUSC, JOAQUIM, MG, HEPAC ####[place] [address] MCV (RBC) [Entitic vol] 83.1 fL Normal 81.0-100.0 A [facility] ([place]) Comment on above: Performed By: #### G , 029208, DUANE, CMP, ANEU, ADIFF, CBC, PRO, SMUST, SMUSC, JOAQUIM, MG, HEPAC ####[place] [address] Platelet 349 10 3/mcL Normal 150-450 [facility] ([place]) Comment on above: Performed By: #### Elizabeth FR, 709834, DUANE, CMP, ANEU, ADIFF, CBC, PRO, SMUST, SMUSC, JOAQUIM, MG, HEPAC ####[place] [address] Platelet mean volume (Bld) [Entitic vol] 7.5 fL Normal 6.4-10.5 [facility] ([place]) Comment on above: Performed By: #### G FR, [id number], DUANE, CMP, ANEU, ADIFF, CBC, PRO, SMUST, SMUSC, JOAQUIM, MG, HEPAC ####[place] [address] RBC 3.14 10 6/mcL Low 4.50-6.00 [facility] ([place] Comment on above: Performed By: #### Elizabeth SOTO, [id number], DUANE, CMP, ANEU, ADIFF, CBC, PRO, SMUST, SMUSC, JOAQUIM, MG, HEPAC ####[address] [address] WBC 7.8 10 3/mcL Normal 4.5-10.8 [facility] ([place] Comment on above: Performed By: #### Elizabeth SOTO, 889351, DUANE, CMP, ANEU, ADIFF, CBC, PRO, SMUST, SMUSC, JOAQUIM, MG, HEPAC ####[address] [address] CMPon 06-26-2024 Albumin Level 1.4 G/dL Low 3.2-4.8 [facility] ([place] Comment on above: Performed By: #### Elizabeth SOTO, 907239, DUANE, CMP, ANEU, ADIFF, CBC, PRO, SMUST, SMUSC, JOAQUIM, MG, HEPAC ####[address] [address] Albumin/Globulin [Mass ratio] 0.3 {ratio} Low 0.9-1.6 [facility] ([place]) Comment on above: Performed By: #### Elizabeth SOTO, 932724, DUANE, CMP, ANEU, ADIFF, CBC, PRO, SMUST, SMUSC, JOAQUIM, MG, HEPAC ####[address] [address] ALP [Catalytic activity/Vol] 1921 U/L High 38-126 [facility] ([place]) Comment on above: Performed By: #### Elizabeth SOTO, [id number], DUANE, CMP, ANEU, ADIFF, CBC, PRO, SMUST, SMUSC, JOAQUIM, MG, HEPAC ####[address] [address] ALT [Catalytic activity/Vol] 294 U/L High 12-55 [facility] ([place]) Comment on above: Performed By: #### Elizabeth SOTO, [id number], DUANE, CMP, ANEU, ADIFF, CBC, PRO, SMUST, SMUSC, JOAQUIM, MG, HEPAC ####[place] [address] AST [Catalytic activity/Vol] 432 U/L High 8-34 [facility] ([place] Comment on above: Performed By: #### Elizabeth SOTO, [id number], DUANE, CMP, ANEU, ADIFF, CBC, PRO, SMUST, SMUSC, JOAQUIM, MG, HEPAC ####[address] [address] Bili Total 0.40 mg/dL Normal 0.20-1.20 [facility] ([place]) Comment on above: Result Comment: Use of this assay is not recommended for patients undergoing treatment with eltrombopag due to the potential for falsely elevated results. Performed By: #### Elizabeth SOTO, 666649, DUANE, CMP, ANEU, ADIFF, CBC, PRO, SMUST, SMUSC, JOAQUIM, MG, HEPAC ####[place] [address] BUN/Creatinine Ratio 13.5 ratio Normal 10.0-22.0 [facility] ([place]) Comment on above: Performed By: #### Elizabeth STOO, [id number], DUANE, CMP, ANEU, ADIFF, CBC, PRO, SMUST, SMUSC, JOAQUIM, MG, HEPAC ####[place] [address] Calcium [Mass/Vol] 8.4 mg/dL Low 8.7-10.4 [facility] ([place]) Comment on above: Performed By: #### Elizabeth SOTO, 748333, DUANE, CMP, ANEU, ADIFF, CBC, PRO, SMUST, SMUSC, JOAQUIM, MG, HEPAC ####[address] [address] Chloride [Moles/Vol] 110 mmol/L Normal 98-110 [facility] ([place]) Comment on above: Performed By: #### Elizabeth SOTO, [id number], DUANE, CMP, ANEU, ADIFF, CBC, PRO, SMUST, SMUSC, JOAQUIM, MG, HEPAC ####[address] [address] CO2 [Moles/Vol] 24 mmol/L Normal 22-32 [facility] ([place] Comment on above: Performed By: #### G , 219052, DUANE, CMP, ANEU, ADIFF, CBC, PRO, SMUST, SMUSC, JOAQUIM, MG, HEPAC ####[address] [address] Creatinine [Mass/Vol] 1.92 mg/dL High 0.60-1.40 [facility] ([place]) Comment on above: Performed By: #### G , 376167, DUANE, CMP, ANEU, ADIFF, CBC, PRO, SMUST, SMUSC, JOAQUIM, MG, HEPAC ####[address] [address] Electrolyte Balance 1.0 mEq/L Low 4.0-15.0 [facility] ([place]) Comment on above: Performed By: #### G , 927607, DUANE, CMP, ANEU, ADIFF, CBC, PRO, SMUST, SMUSC, JOAQUIM, MG, HEPAC ####[address] [address] Globulin 5.3 G/dL High 1.5-3.8 [facility] ([place]) Comment on above: Performed By: #### Elizabeth SOTO, [id number], DUANE, CMP, ANEU, ADIFF, CBC, PRO, SMUST, SMUSC, JOAQUIM, MG, HEPAC ####[address] [address] Glucose [Mass/Vol] 227 mg/dL High 70-110 [facility] ([place]) Comment on above: Performed By: #### Elizabeth SOTO, 344368, DUANE, CMP, ANEU, ADIFF, CBC, PRO, SMUST, SMUSC, JOAQUIM, MG, HEPAC ####[address] [address] Potassium [Moles/Vol] 5.3 mmol/L High 3.5-5.0 [facility] ([place]) Comment on above: Performed By: #### Elizabeth SOTO, 230370, DUANE, CMP, ANEU, ADIFF, CBC, PRO, SMUST, SMUSC, JOAQUIM, MG, HEPAC ####[address] [address] Sodium [Moles/Vol] 135 mmol/L Low 136-145 [facility] ([place]) Comment on above: Performed By: #### G , 563435, DUANE, CMP, ANEU, ADIFF, CBC, PRO, SMUST, SMUSC, JOAQUIM, MG, HEPAC ####[place] [address] Total Protein 6.7 G/dL Normal 5.7-8.2 [facility] ([place]) Comment on above: Result Comment: No te - New Reference Range in effect 20 Performed By: #### G , 334828, DUANE, CMP, ANEU, ADIFF, CBC, PRO, SMUST, SMUSC, JOAQUIM, MG, HEPAC ####[place] [address] Urea nitrogen [Mass/Vol] 26.0 mg/dL High 8.0-22.0 [facility] ([place]) Comment on above: Performed By: #### Elizabeth SOTO, [id number], DUANE, CMP, ANEU, ADIFF, CBC, PRO, SMUST, SMUSC, JOAQUIM, MG, HEPAC ####[place] [address] HEPACon 06-26-2024 Hep A IgM Ab Non-Reactive Normal Non-Reacti [facility] ([place]) Comment on above: Performed By: #### Elizabeth SOTO, [id number], DUANE, CMP, ANEU, ADIFF, CBC, PRO, SMUST, SMUSC, JOAQUIM, MG, HEPAC ####[place] [address] Hep A IgM Ab Int Normal [facility] ([place]) Comment on above: Result Comment: No s erological evidence of a current Hepatitis A infection.See Interp Performed By: #### G , 221454, DUANE, CMP, ANEU, ADIFF, CBC, PRO, SMUST, SMUSC, JOAQUIM, MG, HEPAC ####[place] [address] Hep B Core IgM Ab Non-Reactive Normal Non-Reacti [facility] ([place]) Comment on above: Performed By: #### G , 959854, DUANE, CMP, ANEU, ADIFF, CBC, PRO, SMUST, SMUSC, JOAQUIM, MG, HEPAC ####[place] [address] Hep B Core IgM Ab Int Normal [facility] ([place]) Comment on above: Result Comment: Samp les with a value < 0.80 Index are considered nonreactive (negative) for IgM antibodies to hepatitis B core antigen.See Interp Performed By: #### G FR, 482704, DUANE, CMP, ANEU, ADIFF, CBC, PRO, SMUST, SMUSC, JOAQUIM, MG, HEPAC ####[place] [address] Hep B Surf Ag Non-[facility] Comment on above: Performed By: #### G FR, 349577, DUANE, CMP, ANEU, ADIFF, CBC, PRO, SMUST, SMUSC, JOAQUIM, MG, HEPAC ####[place] [address] Hep C Ab Non-Reactive [place] [facility] ([place] Comment on above: Performed By: #### G FR, 257485, DUANE, CMP, ANEU, ADIFF, CBC, PRO, SMUST, SMUSC, JOAQUIM, MG, HEPAC ####[place] [address] Hep C Ab Int [facility] ([place]) Comment on above: Result Comment: Nonr eactive: Samples with a value < 0.80 are considered nonreactive (negative) for antibodies to HCV.A negative test result does not exclude the possibility of exposure to or infection with HCV. HCV antibodies may be undetectable in some stages of the infection and in some clinical conditions.See Interp Performed By: #### G FR, 983344, DUANE, CMP, ANEU, ADIFF, CBC, PRO, SMUST, SMUSC, JOAQUIM, MG, HEPAC ####[place] [address] LABORATORYOrdered By: Louisa Mckenna on 06-26-2024 Blood Glucose Testing Reason Routine (06/26/24 9:03 PM) [facility] Work Phone: LABORATORYOrdered By: [employer] on 06-26-2024 ALP [Catalytic activity/Vol] 2012 U/L High 44-121 AH Sendouts SS Comment on above: Result Comment: Resu lts confirmed on dilution. ALP Bone Frac (LC) 32 % Invalid Interpretation Code 12-68 AH Sendouts SS ALP Intest Frac (LC) 0 % Invalid Interpretation Code 0-18 AH Sendouts SS Comment on above: Result Comment: Perf ormed At: CB [facility] [place] [id number] [place], [place] [id number] Farrah Mclaughlin PhD Ph:[phone] ALP Liver Frac (LC) 68 % Invalid [...] Pos 40 20 (06/26/24 8:05 AM) Normal [facility] Viro/Sero SS Comment on above: Interpretive Data: A n Anti-smooth muscle antibody (ASMA) of 1:160 or greater is seen in approximately 80% of patients with HBSAG-neg Chronic Active Hepatitis (CAH). Low ASMA titers may be present in viral infections, malignancies and normal individuals. Smooth muscle Ab IF Ql (S) See Titer 19 (06/26/24 8:05 AM) Normal Neg 20 [facility] Viro/Sero SS Comment on above: Interpretive Data: [...] Comment on above: Interpretive Data: Alexis briones [employer] (CHEST, 1991, 102:312S-25S) recommended therapeutic range for oral anticoagulant therapy is: LOW RISK: Prophylaxis of venous thrombosis INR: 2.0-3.0 Treatment of pulmonary embolism 2.0-3.0 Prevention of systemic embolism 2.0-3.0 HIGH RISK: Mechanical prosthetic valves 2.5-3.5 MGon 06-26-2024 Magnesium [Mass/Vol] 1.5 mg/dL Low 1.6-2.4 [facility] ([place]) Comment on above: Performed By: #### G FR, [id number], DUANE, CMP, ANEU, ADIFF, CBC, PRO, SMUST, SMUSC, JOAQUIM, MG, HEPAC ####[place] [address] MRI MRCPon 06-26-2024 MRI MRCP Normal [facility] ([place]) PROon 06-26-2024 INR Coag (PPP) [Relative time] 1.3 {INR} Normal [facility] ([place]) Comment on above: Result Comment: [employer] (CHEST, 1991, 102:[id number])recommended therapeutic range for oral anticoagulant therapy is:LOW RISK: Prophylaxis of venous thrombosis INR: 2.0-3.0 Treatment of pulmonary embolism 2.0-3.0 Prevention of systemic embolism 2.0-3.0HIGH RISK: Mechanical prosthetic valves 2.5-3.5 Performed By: #### G FR, 926547, DUANE, CMP, ANEU, ADIFF, CBC, PRO, SMUST, SMUSC, JOAQUIM, MG, HEPAC ####[place] [address] PT Coag (PPP) [Time] 15.3 s High 9.0-14.4 [facility] ([place]) Comment on above: Result Comment: Effe ctive 06/02/08, Protime results may be affected by some antibiotics (i.e. Ciprofloxacin, Azithromycin, Bactrim) which may potentiate the action of oral anticoagulants, with further increases in Protime/INR. Performed By: #### G FR, 435221, DUANE, CMP, ANEU, ADIFF, CBC, PRO, SMUST, SMUSC, JOAQUIM, MG, HEPAC ####[address] [address] .Auto Diffon 06-25-2024 Basophil, Absolute 0.1 10 3/mcL Normal 0.0-0.3 [facility] ([place]) Comment on above: Performed By: #### G FR, ADIFF, BMP, MG, CBC, ANEU ####[place] [address] Basophils/100 WBC (Bld) 0.7 % Normal 0.0-2.5 A [facility] ([place]) Comment on above: Performed By: #### G FR, ADIFF, BMP, MG, CBC, ANEU ####[address] [address] Eosinophil, Absolute 0.3 10 3/mcL Normal 0.0-0.7 [facility] ([place]) Comment on above: Performed By: #### G FR, ADIFF, BMP, MG, CBC, ANEU ####[address] [address] Eosinophils/100 WBC (Bld) 3.2 % Normal 0.0-6.0 [facility] ([place] Comment on above: Performed By: #### G FR, ADIFF, BMP, MG, CBC, ANEU ####[address] [address] Lymphocyte, Absolute 2.0 10 3/mcL Normal 0.9-4.3 [facility] ([place]) Comment on above: Performed By: #### G FR, ADIFF, BMP, MG, CBC, ANEU ####[address] [address] Lymphocytes/100 WBC (Bld) 19.1 % Low 20.0-40.0 [facility] ([place] Comment on above: Performed By: #### G FR, ADIFF, BMP, MG, CBC, ANEU ####[address] [address] Monocyte, Absolute 0.9 10 3/mcL Normal 0.1-1.4 [facility] ([place]) Comment on above: Performed By: #### G FR, ADIFF, BMP, MG, CBC, ANEU ####[address] [address] Monocytes/100 WBC (Bld) 8.8 % Normal 2.0-13.0 A [facility] ([place] Comment on above: Performed By: #### G FR, ADIFF, BMP, MG, CBC, ANEU ####[address] [address] Neutrophils/100 WBC (Bld) 68.2 % Normal 50.0-75.0 [facility] ([place] Comment on above: Performed By: #### G FR, ADIFF, BMP, MG, CBC, ANEU ####[address] [address] .GFRon 06-25-2024 GFR 50 ml/min/1.73sqm Normal [facility] ([place] Comment on above: Result Comment: GFR Population [...] G FR, ADIFF, BMP, MG, CBC, ANEU ####[place] [address] GFR Non- 41 ml/min/1.73sqm Normal [facility] ([place] Comment on above: Result Comment: GFR Population [...] G FR, ADIFF, BMP, MG, CBC, ANEU ####[address] [address] .NEUABSon 06-25-2024 Neutrophil, Absolute 7.1 10 3/mcL Normal 2.3-8.1 [facility] ([place] Comment on above: Performed By: #### G FR, ADIFF, BMP, MG, CBC, ANEU ####[address] [address] ALKISOon 06-25-2024 Fasting Y Yes Normal [facility] ([place] Comment on above: Performed By: #### G FR, [id number], DUANE, CMP, ANEU, ADIFF, CBC, PRO, SMUST, SMUSC, JOAQUIM, MG, HEPAC ####[address] [address] BMPon 06-25-2024 BUN/Creatinine Ratio 14.5 ratio Normal 10.0-22.0 [facility] ([place] Comment on above: Performed By: #### G FR, ADIFF, BMP, MG, CBC, ANEU ####[place] [address] Calcium [Mass/Vol] 8.4 mg/dL Low 8.7-10.4 [facility] ([place]) Comment on above: Performed By: #### G FR, ADIFF, BMP, MG, CBC, ANEU ####[place] [address] Chloride [Moles/Vol] 108 mmol/L Normal 98-110 [facility] ([place]) Comment on above: Performed By: #### G FR, ADIFF, BMP, MG, CBC, ANEU ####[place] [address] CO2 [Moles/Vol] 24 mmol/L Normal 22-32 [facility] ([place] Comment on above: Performed By: #### G FR, ADIFF, BMP, MG, CBC, ANEU ####[place] [address] Creatinine [Mass/Vol] 1.79 mg/dL High 0.60-1.40 [facility] ([place]) Comment on above: Performed By: #### G FR, ADIFF, BMP, MG, CBC, ANEU ####[place] [address] Electrolyte Balance 3.0 mEq/L Low 4.0-15.0 [facility] ([place]) Comment on above: Performed By: #### G FR, ADIFF, BMP, MG, CBC, ANEU ####[place] [address] Glucose [Mass/Vol] 179 mg/dL High 70-110 [facility] ([place]) Comment on above: Performed By: #### G FR, ADIFF, BMP, MG, CBC, ANEU ####[place] [address] Potassium [Moles/Vol] 5.5 mmol/L High 3.5-5.0 [facility] ([place]) Comment on above: Performed By: #### G FR, ADIFF, BMP, MG, CBC, ANEU ####[place] [address] Sodium [Moles/Vol] 135 mmol/L Low 136-145 [facility] ([place]) Comment on above: Performed By: #### G FR, ADIFF, BMP, MG, CBC, ANEU ####[place] [address] Urea nitrogen [Mass/Vol] 26.0 mg/dL High 8.0-22.0 [facility] ([place] Comment on above: Performed By: #### G FR, ADIFF, BMP, MG, CBC, ANEU ####[place] [address] CBCon 06-25-2024 Erythrocyte distribution width (RBC) [Ratio] 19.8 % High 11.5-15.5 [facility] ([place] Comment on above: Performed By: #### G FR, ADIFF, BMP, MG, CBC, ANEU ####[place] [address] Hematocrit (Bld) [Volume fraction] 26.8 % Low 40.0-52.0 [facility] ([place] Comment on above: Performed By: #### G FR, ADIFF, BMP, MG, CBC, ANEU ####[place] [address] Hgb 8.9 G/dL Low 13.0-17.5 [facility] ([place] Comment on above: Performed By: #### G FR, ADIFF, BMP, MG, CBC, ANEU ####[place] [address] MCH (RBC) [Entitic mass] 27.4 pg Normal 27.0-33.0 [facility] ([place] Comment on above: Performed By: #### G FR, ADIFF, BMP, MG, CBC, ANEU ####[place] [address] MCHC 33.3 G/dL Normal 32.0-36.0 [facility] ([place] Comment on above: Performed By: #### G FR, ADIFF, BMP, MG, CBC, ANEU ####[place] [address] MCV (RBC) [Entitic vol] 82.3 fL Normal 81.0-100.0 A [facility] ([place] Comment on above: Performed By: #### G FR, ADIFF, BMP, MG, CBC, ANEU ####[place] [address] Platelet 335 10 3/mcL Normal 150-450 [facility] ([place] Comment on above: Performed By: #### G FR, ADIFF, BMP, MG, CBC, ANEU ####[place] [address] Platelet mean volume (Bld) [Entitic vol] 7.8 fL Normal 6.4-10.5 [facility] ([place] Comment on above: Performed By: #### G FR, ADIFF, BMP, MG, CBC, ANEU ####[place] [address] RBC 3.25 10 6/mcL Low 4.50-6.00 [facility] ([place] Comment on above: Performed By: #### G FR, ADIFF, BMP, MG, CBC, ANEU ####[place] [address] WBC 10.4 10 3/mcL Normal 4.5-10.8 [facility] ([place] Comment on above: Performed By: #### G FR, ADIFF, BMP, MG, CBC, ANEU ####[address] [address] LABORATORYOrdered By: Louisa Mckenna on 06-25-2024 Blood Glucose Testing Reason Routine (06/25/24 8:51 PM) [facility] Work Phone: MGon 06-25-2024 Magnesium [Mass/Vol] 1.6 mg/dL Normal 1.6-2.4 [facility] ([place] Comment on above: Performed By: #### G FR, ADIFF, BMP, MG, CBC, ANEU ####[address] [address] .Auto Diffon 06-24-2024 Basophil, Absolute 0.1 10 3/mcL Normal 0.0-0.3 [facility] ([place] Comment on above: Performed By: #### A ARBEN, GFR, CBC, CMP, ADIFF, MG ####[address] [address] Basophils/100 WBC (Bld) 0.8 % Normal 0.0-2.5 A [facility] ([place] Comment on above: Performed By: #### A ARBEN, GFR, CBC, CMP, ADIFF, MG ####[address] [address] Eosinophil, Absolute 0.3 10 3/mcL Normal 0.0-0.7 [facility] ([place] Comment on above: Performed By: #### A ARBEN, GFR, CBC, CMP, ADIFF, MG ####[address] [address] Eosinophils/100 WBC (Bld) 3.5 % Normal 0.0-6.0 [facility] ([place] Comment on above: Performed By: #### A ARBEN, GFR, CBC, CMP, ADIFF, MG ####[address] [address] Lymphocyte, Absolute 2.2 10 3/mcL Normal 0.9-4.3 [facility] ([place] Comment on above: Performed By: #### A ARBEN, GFR, CBC, CMP, ADIFF, MG ####[address] [address] Lymphocytes/100 WBC (Bld) 24.7 % Normal 20.0-40.0 [facility] ([place] Comment on above: Performed By: #### A ARBEN, GFR, CBC, CMP, ADIFF, MG ####[address] [address] Monocyte, Absolute 0.8 10 3/mcL Normal 0.1-1.4 [facility] ([place]) Comment on above: Performed By: #### A ARBEN, GFR, CBC, CMP, ADIFF, MG ####[address] [address] Monocytes/100 WBC (Bld) 9.3 % Normal 2.0-13.0 A [facility] ([place]) Comment on above: Performed By: #### A ARBEN, GFR, CBC, CMP, ADIFF, MG ####[address] [address] Neutrophils/100 WBC (Bld) 61.7 % Normal 50.0-75.0 [facility] ([place]) Comment on above: Performed By: #### A ARBEN, GFR, CBC, CMP, ADIFF, MG ####[address] [address] .GFRon 06-24-2024 GFR Non- 38 ml/min/1.73sqm [facility] ([place]) Comment on above: Result Comment: GFR Population [...] A ARBEN, GFR, CBC, CMP, ADIFF, MG ####[address] [address] GFR 47 ml/min/1.73sqm [facility] [place] Comment on above: Result Comment: GFR Population [...] A ARBEN, GFR, CBC, CMP, ADIFF, MG ####[place] [address] .NEUABSon 06-24-2024 Neutrophil, Absolute 5.6 10 3/mcL Normal 2.3-8.1 [facility] ([place] Comment on above: Performed By: #### A ARBEN, GFR, CBC, CMP, ADIFF, MG ####[address] [address] CBCon 06-24-2024 Erythrocyte distribution width (RBC) [Ratio] 19.0 % High 11.5-15.5 [facility] ([place] Comment on above: Performed By: #### A ARBEN, GFR, CBC, CMP, ADIFF, MG ####[address] [address] Hematocrit (Bld) [Volume fraction] 25.3 % Low 40.0-52.0 [facility] ([place] Comment on above: Performed By: #### A ARBEN, GFR, CBC, CMP, ADIFF, MG ####[address] [address] Hgb 8.3 G/dL Low 13.0-17.5 [facility] ([place] Comment on above: Performed By: #### A ARBEN, GFR, CBC, CMP, ADIFF, MG ####[place] [address] MCH (RBC) [Entitic mass] 27.0 pg Normal 27.0-33.0 [facility] ([place] Comment on above: Performed By: #### A ARBEN, GFR, CBC, CMP, ADIFF, MG ####[place] [address] MCHC 32.9 G/dL Normal 32.0-36.0 [facility] ([place] Comment on above: Performed By: #### A ARBEN, GFR, CBC, CMP, ADIFF, MG ####[place] [address] MCV (RBC) [Entitic vol] 82.2 fL Normal 81.0-100.0 [facility] ([place] Comment on above: Performed By: #### A ARBEN, GFR, CBC, CMP, ADIFF, MG ####[place] [address] Platelet 371 10 3/mcL Normal 150-450 [facility] ([place] Comment on above: Performed By: #### A ARBEN, GFR, CBC, CMP, ADIFF, MG ####[place] [address] Platelet mean volume (Bld) [Entitic vol] 7.3 fL Normal 6.4-10.5 [facility] [place] Comment on above: Performed By: #### A ARBEN, GFR, CBC, CMP, ADIFF, MG ####[place] [address] RBC 3.08 10 6/mcL Low 4.50-6.00 [facility] ([place] Comment on above: Performed By: #### A ARBEN, GFR, CBC, CMP, ADIFF, MG ####[place] [id number] WBC 9.0 10 3/mcL Normal 4.5-10.8 [facility] ([place] Comment on above: Performed By: #### A ARBEN, GFR, CBC, CMP, ADIFF, MG ####[address] [address] CMPon 06-24-2024 Albumin Level 1.3 G/dL Low 3.2-4.8 [facility] ([place] Comment on above: Performed By: #### A ARBEN, GFR, CBC, CMP, ADIFF, MG ####[place] [id number] Albumin/Globulin [Mass ratio] 0.3 {ratio} Low 0.9-1.6 [facility] ([place] Comment on above: Performed By: #### A ARBEN, GFR, CBC, CMP, ADIFF, MG ####[address] [address] ALP [Catalytic activity/Vol] 1826 U/L High 38-126 [facility] ([place] Comment on above: Performed By: #### A ARBEN, GFR, CBC, CMP, ADIFF, MG ####[place] [id number] ALT [Catalytic activity/Vol] 81 U/L High 12-55 [facility] ([place] Comment on above: Performed By: #### A ARBEN, GFR, CBC, CMP, ADIFF, MG ####[place] [address] AST [Catalytic activity/Vol] 137 U/L High 8-34 [facility] ([place] Comment on above: Performed By: #### A RABEN, GFR, CBC, CMP, ADIFF, MG ####[place] [address] Bili Total 0.30 mg/dL Normal 0.20-1.20 [facility] ([place] Comment on above: Result Comment: Use of this assay is not recommended for patients undergoing treatment with eltrombopag due to the potential for falsely elevated results. Performed By: #### A ARBEN, GFR, CBC, CMP, ADIFF, MG ####[place] [address] BUN/Creatinine Ratio 12.2 ratio Normal 10.0-22.0 [facility] ([place] Comment on above: Performed By: #### A ARBEN, GFR, CBC, CMP, ADIFF, MG ####[place] [address] Calcium [Mass/Vol] 8.0 mg/dL Low 8.7-10.4 [facility] ([place]) Comment on above: Performed By: #### A ARBEN, GFR, CBC, CMP, ADIFF, MG ####[place] [address] Chloride [Moles/Vol] 110 mmol/L Normal 98-110 [facility] ([place] Comment on above: Performed By: #### A ARBEN, GFR, CBC, CMP, ADIFF, MG ####[place] [address] CO2 [Moles/Vol] 23 mmol/L Normal 22-32 [facility] ([place] Comment on above: Performed By: #### A ARBEN, GFR, CBC, CMP, ADIFF, MG ####[place] [address] Creatinine [Mass/Vol] 1.89 mg/dL High 0.60-1.40 [facility] ([place] Comment on above: Performed By: #### A ARBEN, GFR, CBC, CMP, ADIFF, MG ####[place] [address] Electrolyte Balance 5.0 mEq/L Normal 4.0-15.0 [facility] ([place] Comment on above: Performed By: #### A ARBEN, GFR, CBC, CMP, ADIFF, MG ####[place] [address] Globulin 5.0 G/dL High 1.5-3.8 [facility] [place] Comment on above: Performed By: #### A ARBEN, GFR, CBC, CMP, ADIFF, MG ####[place] [address] Glucose [Mass/Vol] 120 mg/dL High 70-110 [facility] ([place] Comment on above: Performed By: #### A ARBEN, GFR, CBC, CMP, ADIFF, MG ####[place] [address] Potassium [Moles/Vol] 5.1 mmol/L High 3.5-5.0 [facility] ([place] Comment on above: Performed By: #### A ARBEN, GFR, CBC, CMP, ADIFF, MG ####[place] [address] Sodium [Moles/Vol] 138 mmol/L Normal 136-145 [facility] ([place] Comment on above: Performed By: #### A ARBEN, GFR, CBC, CMP, ADIFF, MG ####[place] [address] Total Protein 6.3 G/dL Normal 5.7-8.2 [facility] ([place] Comment on above: Result Comment: No te - New Reference Range in effect 20 Performed By: #### A ARBEN, GFR, CBC, CMP, ADIFF, MG ####[place] [address] Urea nitrogen [Mass/Vol] 23.0 mg/dL High 8.0-22.0 [facility] ([place] Comment on above: Performed By: #### A ARBEN, GFR, CBC, CMP, ADIFF, MG ####[place] [address] GGTon 06-24-2024 Gamma GT 645 U/L High 15-85 [facility] ([place] Comment on above: Performed By: #### G GT ####[place] [address] LABORATORYOrdered By: SYSTEM SYSTEM on 06-24-2024 Gamma glutamyl transferase [Catalytic activity/Vol] 645 U/L High 15 - 85 U/L ADM SS MGon 06-24-2024 Magnesium [Mass/Vol] 1.8 mg/dL Normal 1.6-2.4 [facility] ([place] Comment on above: Performed By: #### A ARBEN, GFR, CBC, CMP, ADIFF, MG ####[place] [address] .Auto Diffon 06-23-2024 Basophil, Absolute 0.1 10 3/mcL Normal 0.0-0.3 [facility] ([place] Comment on above: Performed By: #### G FR, CBC, MG, CMP, ANEU, ADIFF ####[address] [address] Basophils/100 WBC (Bld) 0.8 % Normal 0.0-2.5 [facility] ([place] Comment on above: Performed By: #### G FR, CBC, MG, CMP, ANEU, ADIFF ####[address] [address] Eosinophil, Absolute 0.2 10 3/mcL Normal 0.0-0.7 [facility] ([place] Comment on above: Performed By: #### G FR, CBC, MG, CMP, ANEU, ADIFF ####[address] [address] Eosinophils/100 WBC (Bld) 3.1 % Normal 0.0-6.0 [facility] ([place] Comment on above: Performed By: #### G FR, CBC, MG, CMP, ANEU, ADIFF ####[address] [address] Lymphocyte, Absolute 1.8 10 3/mcL Normal 0.9-4.3 [facility] ([place] Comment on above: Performed By: #### G FR, CBC, MG, CMP, ANEU, ADIFF ####[address] [address] Lymphocytes/100 WBC (Bld) 22.9 % Normal 20.0-40.0 [facility] ([place] Comment on above: Performed By: #### G FR, CBC, MG, CMP, ANEU, ADIFF ####[address] [address] Monocyte, Absolute 0.8 10 3/mcL Normal 0.1-1.4 [facility] ([place] Comment on above: Performed By: #### G FR, CBC, MG, CMP, ANEU, ADIFF ####[address] [address] Monocytes/100 WBC (Bld) 9.6 % Normal 2.0-13.0 A [facility] ([place] Comment on above: Performed By: #### G FR, CBC, MG, CMP, ANEU, ADIFF ####[place] [id number] [address] [place] [address] Neutrophils/100 WBC (Bld) 63.6 % Normal 50.0-75.0 [facility] ([place]) Comment on above: Performed By: #### G FR, CBC, MG, CMP, ANEU, ADIFF ####[address] [address] .GFRon 06-23-2024 GFR Non- 37 ml/min/1.73sqm [facility] ([place] Comment on above: Result Comment: GFR Population [...] G FR, CBC, MG, CMP, ANEU, ADIFF ####[place] [id number] [address] [place] [address] GFR 44 ml/min/1.73sqm [facility] ([place] Comment on above: Result Comment: GFR Population [...] G FR, CBC, MG, CMP, ANEU, ADIFF ####[place] [address] .NEUABSon 06-23-2024 Neutrophil, Absolute 5.0 10 3/mcL Normal 2.3-8.1 [facility] [place] Comment on above: Performed By: #### G FR, CBC, MG, CMP, ANEU, ADIFF ####[place] [address] CBCon 06-23-2024 Erythrocyte distribution width (RBC) [Ratio] 19.3 % High 11.5-15.5 [facility] [place] Comment on above: Performed By: #### G FR, CBC, MG, CMP, ANEU, ADIFF ####[place] [address] Hematocrit (Bld) [Volume fraction] 24.1 % Low 40.0-52.0 [facility] [place] Comment on above: Performed By: #### G FR, CBC, MG, CMP, ANEU, ADIFF ####[place] [address] Hgb 8.0 G/dL Low 13.0-17.5 [facility] ([place] Comment on above: Performed By: #### G FR, CBC, MG, CMP, ANEU, ADIFF ####[place] [address] MCH (RBC) [Entitic mass] 27.0 pg Normal 27.0-33.0 [facility] ([place] Comment on above: Performed By: #### G FR, CBC, MG, CMP, ANEU, ADIFF ####[place] [address] MCHC 33.2 G/dL Normal 32.0-36.0 [facility] [place] Comment on above: Performed By: #### G FR, CBC, MG, CMP, ANEU, ADIFF ####[place] [address] MCV (RBC) [Entitic vol] 81.3 fL Normal 81.0-100.0 [facility] ([place] Comment on above: Performed By: #### G FR, CBC, MG, CMP, ANEU, ADIFF ####[place] [address] Platelet 371 10 3/mcL Normal 150-450 [facility] ([place] Comment on above: Performed By: #### G FR, CBC, MG, CMP, ANEU, ADIFF ####[place] [address] Platelet mean volume (Bld) [Entitic vol] 7.0 fL Normal 6.4-10.5 [facility] [place] Comment on above: Performed By: #### G FR, CBC, MG, CMP, ANEU, ADIFF ####[place] [address] RBC 2.97 10 6/mcL Low 4.50-6.00 [facility] ([place] Comment on above: Performed By: #### G FR, CBC, MG, CMP, ANEU, ADIFF ####[place] [address] WBC 7.9 10 3/mcL Normal 4.5-10.8 [facility] ([place] Comment on above: Performed By: #### G FR, CBC, MG, CMP, ANEU, ADIFF ####[place] [address] CBLon 06-23-2024 CBL [facility] ([place] CMPon 06-23-2024 Albumin Level 1.2 G/dL Low 3.2-4.8 [facility] ([place] Comment on above: Performed By: #### G FR, CBC, MG, CMP, ANEU, ADIFF ####[place] [address] Albumin/Globulin [Mass ratio] 0.2 {ratio} Low 0.9-1.6 [facility] ([place] Comment on above: Performed By: #### G FR, CBC, MG, CMP, ANEU, ADIFF ####[address] [address] ALP [Catalytic activity/Vol] 1608 U/L High 38-126 [facility] ([place] Comment on above: Performed By: #### G FR, CBC, MG, CMP, ANEU, ADIFF ####[place] [address] ALT [Catalytic activity/Vol] 50 U/L Normal 12-55 [facility] ([place] Comment on above: Performed By: #### G FR, CBC, MG, CMP, ANEU, ADIFF ####[place] [address] AST [Catalytic activity/Vol] 67 U/L High 8-34 [facility] ([place] Comment on above: Performed By: #### G FR, CBC, MG, CMP, ANEU, ADIFF ####[place] [address] Bili Total 0.20 mg/dL Normal 0.20-1.20 [facility] ([place] Comment on above: Result Comment: Use of this assay is not recommended for patients undergoing treatment with eltrombopag due to the potential for falsely elevated results. Performed By: #### G FR, CBC, MG, CMP, ANEU, ADIFF ####[place] [address] BUN/Creatinine Ratio 12.2 ratio Normal 10.0-22.0 [facility] [place] Comment on above: Performed By: #### G FR, CBC, MG, CMP, ANEU, ADIFF ####[place] [address] Calcium [Mass/Vol] 8.0 mg/dL Low 8.7-10.4 [facility] ([place] Comment on above: Performed By: #### G FR, CBC, MG, CMP, ANEU, ADIFF ####[place] [address] Chloride [Moles/Vol] 111 mmol/L High 98-110 [facility] ([place] Comment on above: Performed By: #### G FR, CBC, MG, CMP, ANEU, ADIFF ####[address] [address] CO2 [Moles/Vol] 23 mmol/L Normal 22-32 [facility] ([place] Comment on above: Performed By: #### G FR, CBC, MG, CMP, ANEU, ADIFF ####[address] [address] Creatinine [Mass/Vol] 1.97 mg/dL High 0.60-1.40 [facility] ([place] Comment on above: Performed By: #### G FR, CBC, MG, CMP, ANEU, ADIFF ####[place] [address] Electrolyte Balance 2.0 mEq/L Low 4.0-15.0 [facility] ([place] Comment on above: Performed By: #### G FR, CBC, MG, CMP, ANEU, ADIFF ####[place] [id number] Globulin 5.1 G/dL High 1.5-3.8 [facility] [place] Comment on above: Performed By: #### G FR, CBC, MG, CMP, ANEU, ADIFF ####[place] [address] Glucose [Mass/Vol] 140 mg/dL High 70-110 [facility] ([place] Comment on above: Performed By: #### G FR, CBC, MG, CMP, ANEU, ADIFF ####[address] [address] Potassium [Moles/Vol] 5.0 mmol/L Normal 3.5-5.0 [facility] ([place] Comment on above: Performed By: #### G FR, CBC, MG, CMP, ANEU, ADIFF ####[place] [address] Sodium [Moles/Vol] 136 mmol/L Normal 136-145 [facility] ([place] Comment on above: Performed By: #### G FR, CBC, MG, CMP, ANEU, ADIFF ####[place] [address] Total Protein 6.3 G/dL Normal 5.7-8.2 [facility] [place] Comment on above: Result Comment: No te - New Reference Range in effect 20 Performed By: #### G FR, CBC, MG, CMP, ANEU, ADIFF ####[place] [address] Urea nitrogen [Mass/Vol] 24.0 mg/dL High 8.0-22.0 [facility] [place] Comment on above: Performed By: #### G FR, CBC, MG, CMP, ANEU, ADIFF ####[place] [address] IR ASPIRATION/DRAINAGEon IR ASPIRATION/DRAINAGE Normal [facility] ([place]) LABORATORYOrdered By: Aleksey Barajas on 06-23-2024 LDose Vancomycin:(trough) See eMAR (06/23/24 10:35 PM) Normal Chemistry S LABORATORYOrdered By: SYSTEM SYSTEM on 06-23-2024 Vancomycin trough [Mass/Vol] 20.8 ug/mL Invalid Interpretation Code 5.0 - 20.0 mcg/mL AH ADM SS MGon 06-23-2024 Magnesium [Mass/Vol] 1.9 mg/dL Normal 1.6-2.4 [facility] [place] Comment on above: Performed By: #### G FR, CBC, MG, CMP, ANEU, ADIFF ####[place] [address] US ABDOMEN LIMITEDon 024 US ABDOMEN LIMITED Normal [facility] ([place]) VANCTon 06-23-2024 LDose Vancomycin:(trough) See eMAR [facility] ([place] Comment on above: Performed By: #### V ANCT ####[place] [address] Vancomycin Tr 20.8 mcg/mL Critically abnormal 5.0-20.0 [facility] ([place] Comment on above: Performed By: #### V ANCT ####[place] [address] .Auto Diffon 06-22-2024 Basophil, Absolute 0.1 10 3/mcL Normal 0.0-0.3 [facility] ([place] Comment on above: Performed By: #### A DIFF, CMP, ANEU, CBC, GFR, MG ####[address] [address] Basophils/100 WBC (Bld) 0.7 % Normal 0.0-2.5 [facility] ([place] Comment on above: Performed By: #### A DIFF, CMP, ANEU, CBC, GFR, MG ####[address] [address] Eosinophil, Absolute 0.3 10 3/mcL Normal 0.0-0.7 [facility] [place] Comment on above: Performed By: #### A DIFF, CMP, ANEU, CBC, GFR, MG ####[address] [address] Eosinophils/100 WBC (Bld) 3.9 % Normal 0.0-6.0 [facility] [place] Comment on above: Performed By: #### A DIFF, CMP, ANEU, CBC, GFR, MG ####[address] [address] Lymphocyte, Absolute 1.8 10 3/mcL Normal 0.9-4.3 [facility] [place] Comment on above: Performed By: #### A DIFF, CMP, ANEU, CBC, GFR, MG ####[address] [address] Lymphocytes/100 WBC (Bld) 23.8 % Normal 20.0-40.0 [facility] [place] Comment on above: Performed By: #### A DIFF, CMP, ANEU, CBC, GFR, MG ####[address] [address] Monocyte, Absolute 0.8 10 3/mcL Normal 0.1-1.4 [facility] [place] Comment on above: Performed By: #### A DIFF, CMP, ANEU, CBC, GFR, MG ####[address] [address] Monocytes/100 WBC (Bld) 10.5 % Normal 2.0-13.0 [facility] ([place] Comment on above: Performed By: #### A DIFF, CMP, ANEU, CBC, GFR, MG ####[address] [address] Neutrophils/100 WBC (Bld) 61.1 % Normal 50.0-75.0 [facility] [place] Comment on above: Performed By: #### A DIFF, CMP, ANEU, CBC, GFR, MG ####[address] [address] .GFRon 06-22-2024 GFR 43 ml/min/1.73sqm [facility] ([place] Comment on above: Result Comment: GFR Population [...] A DIFF, CMP, ANEU, CBC, GFR, MG ####[address] [address] GFR Non- 35 ml/min/1.73sqm [facility] ([place] Comment on above: Result Comment: GFR Population [...] A DIFF, CMP, ANEU, CBC, GFR, MG ####[place] [address] .NEUABSon 06-22-2024 Neutrophil, Absolute 4.6 10 3/mcL Normal 2.3-8.1 [facility] [place] Comment on above: Performed By: #### A DIFF, CMP, ANEU, CBC, GFR, MG ####[place] [address] APTTon 06-22-2024 aPTT Coag (Bld) [Time] 53.4 s High 25.0-35.0 [facility] [place] Comment on above: Result Comment: For Heparin anticoagulation therapy, the recommendedtherapeutic range is: 54-77 seconds (APTT Correlationwith Anti-Xa therapeutic range of 0.3-0.7 units/ml).PLEASE REFERENCE THE PHARMACY PROTOCOL FOR DOSING. Performed By: #### A PTT ####[place] [address] aPTT Coag (Bld) [Time] 44.6 s High 25.0-35.0 [facility] [place] Comment on above: Result Comment: For Heparin anticoagulation therapy, the recommendedtherapeutic range is: 54-77 seconds (APTT Correlationwith Anti-Xa therapeutic range of 0.3-0.7 units/ml).PLEASE REFERENCE THE PHARMACY PROTOCOL FOR DOSING. Performed By: #### A PTT ####[place] [address] aPTT Coag (Bld) [Time] 43.7 s High 25.0-35.0 [facility] [place] Comment on above: Result Comment: For Heparin anticoagulation therapy, the recommendedtherapeutic range is: 54-77 seconds (APTT Correlationwith Anti-Xa therapeutic range of 0.3-0.7 units/ml).PLEASE REFERENCE THE PHARMACY PROTOCOL FOR DOSING. Performed By: #### A PTT ####[place] [address] CBCon 06-22-2024 Erythrocyte distribution width (RBC) [Ratio] 19.0 % High 11.5-15.5 [facility] [place] Comment on above: Performed By: #### A DIFF, CMP, ANEU, CBC, GFR, MG ####[place] [address] Hematocrit (Bld) [Volume fraction] 23.2 % Low 40.0-52.0 [facility] [place] Comment on above: Performed By: #### A DIFF, CMP, ANEU, CBC, GFR, MG ####[place] [address] Hgb 7.6 G/dL Low 13.0-17.5 [facility] [place] Comment on above: Performed By: #### A DIFF, CMP, ANEU, CBC, GFR, MG ####[place] [address] MCH (RBC) [Entitic mass] 26.6 pg Low 27.0-33.0 [facility] [place] Comment on above: Performed By: #### A DIFF, CMP, ANEU, CBC, GFR, MG ####[place] [address] MCHC 32.8 G/dL Normal 32.0-36.0 [facility] [place] Comment on above: Performed By: #### A DIFF, CMP, ANEU, CBC, GFR, MG ####[place] [address] MCV (RBC) [Entitic vol] 81.1 fL Normal 81.0-100.0 [facility] ([place] Comment on above: Performed By: #### A DIFF, CMP, ANEU, CBC, GFR, MG ####[place] [address] Platelet 402 10 3/mcL Normal 150-450 [facility] ([place] Comment on above: Performed By: #### A DIFF, CMP, ANEU, CBC, GFR, MG ####[place] [address] Platelet mean volume (Bld) [Entitic vol] 7.1 fL Normal 6.4-10.5 [facility] ([place] Comment on above: Performed By: #### A DIFF, CMP, ANEU, CBC, GFR, MG ####[address] [address] RBC 2.86 10 6/mcL Low 4.50-6.00 [facility] ([place] Comment on above: Performed By: #### A DIFF, CMP, ANEU, CBC, GFR, MG ####[place] [phone] WBC 7.5 10 3/mcL Normal 4.5-10.8 [facility] [place] Comment on above: Performed By: #### A DIFF, CMP, ANEU, CBC, GFR, MG ####[address] [address] CMPon 06-22-2024 Albumin Level 1.2 G/dL Low 3.2-4.8 [facility] [place] Comment on above: Performed By: #### A DIFF, CMP, ANEU, CBC, GFR, MG ####[place] [address] Albumin/Globulin [Mass ratio] 0.3 {ratio} Low 0.9-1.6 [facility] [place] Comment on above: Performed By: #### A DIFF, CMP, ANEU, CBC, GFR, MG ####[address] [address] ALP [Catalytic activity/Vol] 1525 U/L High 38-126 [facility] [place] Comment on above: Performed By: #### A DIFF, CMP, ANEU, CBC, GFR, MG ####[address] [address] ALT [Catalytic activity/Vol] 38 U/L Normal 12-55 [facility] ([place] Comment on above: Performed By: #### A DIFF, CMP, ANEU, CBC, GFR, MG ####[address] [address] AST [Catalytic activity/Vol] 48 U/L High 8-34 [facility] ([place] Comment on above: Performed By: #### A DIFF, CMP, ANEU, CBC, GFR, MG ####[place] [phone] Bili Total 0.20 mg/dL Normal 0.20-1.20 [facility] [place] Comment on above: Result Comment: Use of this assay is not recommended for patients undergoing treatment with eltrombopag due to the potential for falsely elevated results. Performed By: #### A DIFF, CMP, ANEU, CBC, GFR, MG ####[place] [address] BUN/Creatinine Ratio 13.7 ratio Normal 10.0-22.0 [facility] [place] Comment on above: Performed By: #### A DIFF, CMP, ANEU, CBC, GFR, MG ####[place] [address] Calcium [Mass/Vol] 7.6 mg/dL Low 8.7-10.4 [facility] ([place] Comment on above: Performed By: #### A DIFF, CMP, ANEU, CBC, GFR, MG ####[place] [address] Chloride [Moles/Vol] 109 mmol/L Normal 98-110 [facility] [place] Comment on above: Performed By: #### A DIFF, CMP, ANEU, CBC, GFR, MG ####[place] [id number] CO2 [Moles/Vol] 23 mmol/L Normal 22-32 [facility] [place] Comment on above: Performed By: #### A DIFF, CMP, ANEU, CBC, GFR, MG ####[place] [address] Creatinine [Mass/Vol] 2.04 mg/dL High 0.60-1.40 [facility] ([place] Comment on above: Performed By: #### A DIFF, CMP, ANEU, CBC, GFR, MG ####[place] [id number] Electrolyte Balance 5.0 mEq/L Normal 4.0-15.0 [facility] ([place] Comment on above: Performed By: #### A DIFF, CMP, ANEU, CBC, GFR, MG ####[address] [address] Globulin 4.6 G/dL High 1.5-3.8 [facility] [place] Comment on above: Performed By: #### A DIFF, CMP, ANEU, CBC, GFR, MG ####[address] [address] Glucose [Mass/Vol] 172 mg/dL High 70-110 [facility] ([place] Comment on above: Performed By: #### A DIFF, CMP, ANEU, CBC, GFR, MG ####[address] [address] Potassium [Moles/Vol] 4.3 mmol/L Normal 3.5-5.0 [facility] ([place] Comment on above: Performed By: #### A DIFF, CMP, ANEU, CBC, GFR, MG ####[place] [address] Sodium [Moles/Vol] 137 mmol/L Normal 136-145 [facility] ([place] Comment on above: Performed By: #### A DIFF, CMP, ANEU, CBC, GFR, MG ####[place] [address] Total Protein 5.8 G/dL Normal 5.7-8.2 [facility] [place] Comment on above: Result Comment: No te - New Reference Range in effect 20 Performed By: #### A DIFF, CMP, ANEU, CBC, GFR, MG ####[place] [address] Urea nitrogen [Mass/Vol] 28.0 mg/dL High 8.0-22.0 [facility] [place] Comment on above: Performed By: #### A DIFF, CMP, ANEU, CBC, GFR, MG ####[address] [address] LABORATORYOrdered By: SYSTEM SYSTEM on 06-22-2024 aPTT [...] 06-22-2024 Magnesium [Mass/Vol] 1.8 mg/dL Normal 1.6-2.4 [facility] [place] Comment on above: Performed By: #### A DIFF, CMP, ANEU, CBC, GFR, MG ####[place] [address] [facility] LDose Vancomycin:(trough) See eMAR [facility] [place] Comment on above: Performed By: #### V ANCT ####[place] [address] Vancomycin Tr 20.0 mcg/mL Normal 5.0-20.0 [facility] [place] Comment on above: Performed By: #### V ANCT ####[place] [address] .Auto Diffon 06-21-2024 Basophil, Absolute 0.0 10 3/mcL Normal 0.0-0.3 [facility] ([place]) Comment on above: Performed By: #### A ARBEN, CBC, ADIFF, GFR, CMP, MG ####[address] [id number] Basophils/100 WBC (Bld) 0.6 % Normal 0.0-2.5 A [facility] ([place]) Comment on above: Performed By: #### A ARBEN, CBC, ADIFF, GFR, CMP, MG ####[address] [address] Eosinophil, Absolute 0.3 10 3/mcL Normal 0.0-0.7 [facility] ([place]) Comment on above: Performed By: #### A ARBEN, CBC, ADIFF, GFR, CMP, MG ####[address] [address] Eosinophils/100 WBC (Bld) 4.2 % Normal 0.0-6.0 [facility] ([place] Comment on above: Performed By: #### A ARBEN, CBC, ADIFF, GFR, CMP, MG ####[address] [address] Lymphocyte, Absolute 1.8 10 3/mcL Normal 0.9-4.3 [facility] ([place]) Comment on above: Performed By: #### A ARBEN, CBC, ADIFF, GFR, CMP, MG ####[address] [address] Lymphocytes/100 WBC (Bld) 23.6 % Normal 20.0-40.0 [facility] ([place] Comment on above: Performed By: #### A ARBEN, CBC, ADIFF, GFR, CMP, MG ####[address] [address] Monocyte, Absolute 0.7 10 3/mcL Normal 0.1-1.4 [facility] ([place]) Comment on above: Performed By: #### A ARBEN, CBC, ADIFF, GFR, CMP, MG ####[address] [address] Monocytes/100 WBC (Bld) 9.4 % Normal 2.0-13.0 [facility] ([place]) Comment on above: Performed By: #### A ARBEN, CBC, ADIFF, GFR, CMP, MG ####[address] [address] Neutrophils/100 WBC (Bld) 62.2 % Normal 50.0-75.0 [facility] ([place] Comment on above: Performed By: #### A ARBEN, CBC, ADIFF, GFR, CMP, MG ####[address] [address] .GFRon 06-21-2024 GFR 38 ml/min/1.73sqm Normal [facility] ([place] Comment on above: Result Comment: GFR Population [...] A ARBEN, CBC, ADIFF, GFR, CMP, MG ####[address] [address] GFR Non- 32 ml/min/1.73sqm Normal [facility] ([place] Comment on above: Result Comment: GFR Population [...] A ARBEN, CBC, ADIFF, GFR, CMP, MG ####[place] [address] .NEUABSon 06-21-2024 Neutrophil, Absolute 4.6 10 3/mcL Normal 2.3-8.1 [facility] ([place] Comment on above: Performed By: #### A ARBEN, CBC, ADIFF, GFR, CMP, MG ####[place] [address] APTTon 06-21-2024 aPTT Coag (Bld) [Time] 44.1 s High 25.0-35.0 [facility] ([place] Comment on above: Result Comment: For Heparin anticoagulation therapy, the recommendedtherapeutic range is: 54-77 seconds (APTT Correlationwith Anti-Xa therapeutic range of 0.3-0.7 units/ml).PLEASE REFERENCE THE PHARMACY PROTOCOL FOR DOSING. Performed By: #### A PTT ####[place] [address] CBCon 06-21-2024 Erythrocyte distribution width (RBC) [Ratio] 19.1 % High 11.5-15.5 [facility] ([place] Comment on above: Performed By: #### A ARBEN, CBC, ADIFF, GFR, CMP, MG ####[place] [address] Hematocrit (Bld) [Volume fraction] 22.5 % Low 40.0-52.0 [facility] ([place] Comment on above: Performed By: #### A ARBEN, CBC, ADIFF, GFR, CMP, MG ####[place] [address] Hgb 7.4 G/dL Low 13.0-17.5 [facility] ([place] Comment on above: Performed By: #### A ARBEN, CBC, ADIFF, GFR, CMP, MG ####[place] [address] MCH (RBC) [Entitic mass] 27.1 pg Normal 27.0-33.0 [facility] ([place] Comment on above: Performed By: #### A ARBEN, CBC, ADIFF, GFR, CMP, MG ####[place] [address] MCHC 32.9 G/dL Normal 32.0-36.0 [facility] ([place] Comment on above: Performed By: #### A ARBEN, CBC, ADIFF, GFR, CMP, MG ####[place] [address] MCV (RBC) [Entitic vol] 82.4 fL Normal 81.0-100.0 [facility] ([place] Comment on above: Performed By: #### A ARBEN, CBC, ADIFF, GFR, CMP, MG ####[place] [address] Platelet 427 10 3/mcL Normal 150-450 [facility] ([place] Comment on above: Performed By: #### A ARBEN, CBC, ADIFF, GFR, CMP, MG ####[place] [address] Platelet mean volume (Bld) [Entitic vol] 6.9 fL Normal 6.4-10.5 [facility] ([place] Comment on above: Performed By: #### A ARBEN, CBC, ADIFF, GFR, CMP, MG ####[place] [address] RBC 2.73 10 6/mcL Low 4.50-6.00 [facility] ([place] Comment on above: Performed By: #### A ARBEN, CBC, ADIFF, GFR, CMP, MG ####[place] [address] WBC 7.5 10 3/mcL Normal 4.5-10.8 [facility] ([place] Comment on above: Performed By: #### A ARBEN, CBC, ADIFF, GFR, CMP, MG ####[place] [address] CMPon 06-21-2024 Albumin Level 1.2 G/dL Low 3.2-4.8 [facility] ([place] Comment on above: Performed By: #### A ARBEN, CBC, ADIFF, GFR, CMP, MG ####[place] [address] Albumin/Globulin [Mass ratio] 0.2 {ratio} Low 0.9-1.6 [facility] ([place] Comment on above: Performed By: #### A ARBEN, CBC, ADIFF, GFR, CMP, MG ####[place] [id number] ALP [Catalytic activity/Vol] 1722 U/L High 38-126 [facility] ([place] Comment on above: Performed By: #### A ARBEN, CBC, ADIFF, GFR, CMP, MG ####[place] [id number] ALT [Catalytic activity/Vol] 35 U/L Normal 12-55 [facility] ([place] Comment on above: Performed By: #### A ARBEN, CBC, ADIFF, GFR, CMP, MG ####[place] [id number] AST [Catalytic activity/Vol] 68 U/L High 8-34 [facility] ([place] Comment on above: Performed By: #### A ARBEN, CBC, ADIFF, GFR, CMP, MG ####[place] [address] Bili Total 0.20 mg/dL Normal 0.20-1.20 [facility] ([place] Comment on above: Result Comment: Use of this assay is not recommended for patients undergoing treatment with eltrombopag due to the potential for falsely elevated results. Performed By: #### A ARBEN, CBC, ADIFF, GFR, CMP, MG ####[place] [address] BUN/Creatinine Ratio 15.2 ratio Normal 10.0-22.0 [facility] ([place] Comment on above: Performed By: #### A ARBEN, CBC, ADIFF, GFR, CMP, MG ####[place] [address] Calcium [Mass/Vol] 7.8 mg/dL Low 8.7-10.4 [facility] ([place]) Comment on above: Performed By: #### A RABEN, CBC, ADIFF, GFR, CMP, MG ####[address] [address] Chloride [Moles/Vol] 110 mmol/L Normal 98-110 [facility] ([place] Comment on above: Performed By: #### A ARBEN, CBC, ADIFF, GFR, CMP, MG ####[address] [address] CO2 [Moles/Vol] 23 mmol/L Normal 22-32 [facility] ([place] Comment on above: Performed By: #### A ARBEN, CBC, ADIFF, GFR, CMP, MG ####[address] [address] Creatinine [Mass/Vol] 2.23 mg/dL High 0.60-1.40 [facility] ([place]) Comment on above: Performed By: #### A ARBEN, CBC, ADIFF, GFR, CMP, MG ####[place] [address] Electrolyte Balance 6.0 mEq/L Normal 4.0-15.0 [facility] ([place]) Comment on above: Performed By: #### A ARBEN, CBC, ADIFF, GFR, CMP, MG ####[address] [address] Globulin 5.0 G/dL High 1.5-3.8 [facility] ([place] Comment on above: Performed By: #### A ARBEN, CBC, ADIFF, GFR, CMP, MG ####[address] [address] Glucose [Mass/Vol] 174 mg/dL High 70-110 [facility] ([place]) Comment on above: Performed By: #### A ARBEN, CBC, ADIFF, GFR, CMP, MG ####[address] [address] Potassium [Moles/Vol] 4.4 mmol/L Normal 3.5-5.0 [facility] ([place] Comment on above: Performed By: #### A ARBEN, CBC, ADIFF, GFR, CMP, MG ####[place] [address] Sodium [Moles/Vol] 139 mmol/L Normal 136-145 [facility] ([place]) Comment on above: Performed By: #### A ARBEN, CBC, ADIFF, GFR, CMP, MG ####[place] [address] Total Protein 6.2 G/dL Normal 5.7-8.2 [facility] ([place] Comment on above: Result Comment: No te - New Reference Range in effect 20 Performed By: #### A ARBEN, CBC, ADIFF, GFR, CMP, MG ####[place] [address] Urea nitrogen [Mass/Vol] 34.0 mg/dL High 8.0-22.0 [facility] ([place] Comment on above: Performed By: #### A ARBEN, CBC, ADIFF, GFR, CMP, MG ####[place] [address] LABORATORYOrdered By: Yue Somers on 06-21-2024 LDose Vancomycin:(trough) See eMAR (06/21/24 7:29 PM) Normal Chemistry S LABORATORYOrdered By: SYSTEM SYSTEM on 06-21-2024 Vancomycin trough [Mass/Vol] 15.9 ug/mL Normal 5.0 - 20.0 mcg/mL ADM SS MGon 06-21-2024 Magnesium [Mass/Vol] 2.0 mg/dL Normal 1.6-2.4 [facility] ([place] Comment on above: Performed By: #### A ARBEN, CBC, ADIFF, GFR, CMP, MG ####[place] [address] VANCTon 06-21-2024 LDose Vancomycin:(trough) See eMAR Normal [facility] ([place] Comment on above: Performed By: #### V ANCT ####[place] [address] Vancomycin Tr 15.9 mcg/mL Normal 5.0-20.0 [facility] ([place] Comment on above: Performed By: #### V ANCT ####[address] [address] .Auto Diffon 06-20-2024 Basophil, Absolute 0.0 10 3/mcL Normal 0.0-0.3 [facility] ([place] Comment on above: Performed By: #### G FR, FES, FOL, ANEU, APTT, MG, CMP, VANCR, FERR, CBC, ADIFF ####[address] [address] Basophils/100 WBC (Bld) 0.6 % Normal 0.0-2.5 A [facility] ([place]) Comment on above: Performed By: #### G FR, FES, FOL, ANEU, APTT, MG, CMP, VANCR, FERR, CBC, ADIFF ####[place] [address] Eosinophil, Absolute 0.3 10 3/mcL Normal 0.0-0.7 [facility] ([place] Comment on above: Performed By: #### G FR, FES, FOL, ANEU, APTT, MG, CMP, VANCR, FERR, CBC, ADIFF ####[address] [address] Eosinophils/100 WBC (Bld) 4.3 % Normal 0.0-6.0 [facility] ([place] Comment on above: Performed By: #### G FR, FES, FOL, ANEU, APTT, MG, CMP, VANCR, FERR, CBC, ADIFF ####[address] [address] Lymphocyte, Absolute 2.1 10 3/mcL Normal 0.9-4.3 [facility] ([place] Comment on above: Performed By: #### G FR, FES, FOL, ANEU, APTT, MG, CMP, VANCR, FERR, CBC, ADIFF ####[address] [address] Lymphocytes/100 WBC (Bld) 27.1 % Normal 20.0-40.0 [facility] ([place]) Comment on above: Performed By: #### G FR, FES, FOL, ANEU, APTT, MG, CMP, VANCR, FERR, CBC, ADIFF ####[place] [id number] [address] [place] [address] Monocyte, Absolute 0.9 10 3/mcL Normal 0.1-1.4 [facility] ([place] Comment on above: Performed By: #### G FR, FES, FOL, ANEU, APTT, MG, CMP, VANCR, FERR, CBC, ADIFF ####[place] [id number] [address] [place] [address] Monocytes/100 WBC (Bld) 11.0 % Normal 2.0-13.0 A [facility] ([place]) Comment on above: Performed By: #### G FR, FES, FOL, ANEU, APTT, MG, CMP, VANCR, FERR, CBC, ADIFF ####[address] [address] Neutrophils/100 WBC (Bld) 57.0 % Normal 50.0-75.0 [facility] ([place] Comment on above: Performed By: #### G FR, FES, FOL, ANEU, APTT, MG, CMP, VANCR, FERR, CBC, ADIFF ####[address] [address] .GFRon 06-20-2024 GFR 32 ml/min/1.73sqm Normal [facility] ([place] Comment on above: Result Comment: GFR Population [...] APTT, MG, CMP, VANCR, FERR, CBC, ADIFF ####[address] [address] GFR Non- 27 ml/min/1.73sqm Normal [facility] ([place] Comment on above: Result Comment: GFR Population [...] APTT, MG, CMP, VANCR, FERR, CBC, ADIFF ####[address] [address] .NEUABSon 06-20-2024 Neutrophil, Absolute 4.5 10 3/mcL Normal 2.3-8.1 [facility] ([place] Comment on above: Performed By: #### G FR, FES, FOL, ANEU, APTT, MG, CMP, VANCR, FERR, CBC, ADIFF ####[place] [id number] APTTon 06-20-2024 aPTT Coag (Bld) [Time] 34.1 s Normal 25.0-35.0 [facility] ([place] Comment on above: Result Comment: For Heparin anticoagulation therapy, the recommendedtherapeutic range is: 54-77 seconds (APTT Correlationwith Anti-Xa therapeutic range of 0.3-0.7 units/ml).PLEASE REFERENCE THE PHARMACY PROTOCOL FOR DOSING. Performed By: #### G FR, FES, FOL, ANEU, APTT, MG, CMP, VANCR, FERR, CBC, ADIFF ####[address] [address] CBCon 06-20-2024 Erythrocyte distribution width (RBC) [Ratio] 18.4 % High 11.5-15.5 [facility] ([place] Comment on above: Performed By: #### G FR, FES, FOL, ANEU, APTT, MG, CMP, VANCR, FERR, CBC, ADIFF ####[place] [address] Hematocrit (Bld) [Volume fraction] 22.2 % Low 40.0-52.0 [facility] ([place] Comment on above: Performed By: #### G FR, FES, FOL, ANEU, APTT, MG, CMP, VANCR, FERR, CBC, ADIFF ####[address] [address] Hgb 7.5 G/dL Low 13.0-17.5 [facility] ([place] Comment on above: Performed By: #### G FR, FES, FOL, ANEU, APTT, MG, CMP, VANCR, FERR, CBC, ADIFF ####[place] [address] MCH (RBC) [Entitic mass] 27.4 pg Normal 27.0-33.0 [facility] ([place] Comment on above: Performed By: #### G FR, FES, FOL, ANEU, APTT, MG, CMP, VANCR, FERR, CBC, ADIFF ####[place] [address] MCHC 33.8 G/dL Normal 32.0-36.0 [facility] ([place] Comment on above: Performed By: #### G FR, FES, FOL, ANEU, APTT, MG, CMP, VANCR, FERR, CBC, ADIFF ####[place] [address] MCV (RBC) [Entitic vol] 81.1 fL Normal 81.0-100.0 [facility] ([place] Comment on above: Performed By: #### G FR, FES, FOL, ANEU, APTT, MG, CMP, VANCR, FERR, CBC, ADIFF ####[place] [id number] Platelet 428 10 3/mcL Normal 150-450 [facility] ([place] Comment on above: Performed By: #### G FR, FES, FOL, ANEU, APTT, MG, CMP, VANCR, FERR, CBC, ADIFF ####[address] [address] Platelet mean volume (Bld) [Entitic vol] 7.1 fL Normal 6.4-10.5 [facility] ([place] Comment on above: Performed By: #### G FR, FES, FOL, ANEU, APTT, MG, CMP, VANCR, FERR, CBC, ADIFF ####[address] [address] RBC 2.73 10 6/mcL Low 4.50-6.00 [facility] ([place] Comment on above: Performed By: #### G FR, FES, FOL, ANEU, APTT, MG, CMP, VANCR, FERR, CBC, ADIFF ####[address] [address] WBC 7.9 10 3/mcL Normal 4.5-10.8 [facility] ([place] Comment on above: Performed By: #### G FR, FES, FOL, ANEU, APTT, MG, CMP, VANCR, FERR, CBC, ADIFF ####[place] [address] CMPon 06-20-2024 Albumin Level 1.5 G/dL Low 3.2-4.8 [facility] ([place] Comment on above: Performed By: #### G FR, FES, FOL, ANEU, APTT, MG, CMP, VANCR, FERR, CBC, ADIFF ####[address] [address] Albumin/Globulin [Mass ratio] 0.3 {ratio} Low 0.9-1.6 [facility] ([place] Comment on above: Performed By: #### G FR, FES, FOL, ANEU, APTT, MG, CMP, VANCR, FERR, CBC, ADIFF ####[address] [address] ALP [Catalytic activity/Vol] 1127 U/L High 38-126 [facility] ([place] Comment on above: Performed By: #### G FR, FES, FOL, ANEU, APTT, MG, CMP, VANCR, FERR, CBC, ADIFF ####[address] [address] ALT [Catalytic activity/Vol] 28 U/L Normal 12-55 [facility] ([place] Comment on above: Performed By: #### G FR, FES, FOL, ANEU, APTT, MG, CMP, VANCR, FERR, CBC, ADIFF ####[address] [address] AST [Catalytic activity/Vol] 25 U/L Normal 8-34 [facility] ([place] Comment on above: Performed By: #### G FR, FES, FOL, ANEU, APTT, MG, CMP, VANCR, FERR, CBC, ADIFF ####[address] [address] Bili Total 0.20 mg/dL Normal 0.20-1.20 [facility] ([place] Comment on above: Result Comment: Use of this assay is not recommended for patients undergoing treatment with eltrombopag due to the potential for falsely elevated results. Performed By: #### G FR, FES, FOL, ANEU, APTT, MG, CMP, VANCR, FERR, CBC, ADIFF ####[place] [address] BUN/Creatinine Ratio 15.1 ratio Normal 10.0-22.0 [facility] ([place] Comment on above: Performed By: #### G FR, FES, FOL, ANEU, APTT, MG, CMP, VANCR, FERR, CBC, ADIFF ####[address] [address] Calcium [Mass/Vol] 7.5 mg/dL Low 8.7-10.4 [facility] ([place]) Comment on above: Performed By: #### G FR, FES, FOL, ANEU, APTT, MG, CMP, VANCR, FERR, CBC, ADIFF ####[address] [address] Chloride [Moles/Vol] 107 mmol/L Normal 98-110 [facility] ([place] Comment on above: Performed By: #### G FR, FES, FOL, ANEU, APTT, MG, CMP, VANCR, FERR, CBC, ADIFF ####[address] [address] CO2 [Moles/Vol] 24 mmol/L Normal 22-32 [facility] ([place] Comment on above: Performed By: #### G FR, FES, FOL, ANEU, APTT, MG, CMP, VANCR, FERR, CBC, ADIFF ####[address] [address] Creatinine [Mass/Vol] 2.59 mg/dL High 0.60-1.40 [facility] ([place]) Comment on above: Performed By: #### G FR, FES, FOL, ANEU, APTT, MG, CMP, VANCR, FERR, CBC, ADIFF ####[address] [address] Electrolyte Balance 7.0 mEq/L Normal 4.0-15.0 [facility] ([place] Comment on above: Performed By: #### G FR, FES, FOL, ANEU, APTT, MG, CMP, VANCR, FERR, CBC, ADIFF ####[address] [address] Globulin 5.0 G/dL High 1.5-3.8 [facility] ([place] Comment on above: Performed By: #### G FR, FES, FOL, ANEU, APTT, MG, CMP, VANCR, FERR, CBC, ADIFF ####[address] [address] Glucose [Mass/Vol] 138 mg/dL High 70-110 [facility] ([place]) Comment on above: Performed By: #### G FR, FES, FOL, ANEU, APTT, MG, CMP, VANCR, FERR, CBC, ADIFF ####[address] [address] Potassium [Moles/Vol] 4.1 mmol/L Normal 3.5-5.0 [facility] ([place] Comment on above: Performed By: #### G FR, FES, FOL, ANEU, APTT, MG, CMP, VANCR, FERR, CBC, ADIFF ####[address] [address] Sodium [Moles/Vol] 138 mmol/L Normal 136-145 [facility] ([place]) Comment on above: Performed By: #### G FR, FES, FOL, ANEU, APTT, MG, CMP, VANCR, FERR, CBC, ADIFF ####[address] [address] Total Protein 6.5 G/dL Normal 5.7-8.2 [facility] ([place] Comment on above: Result Comment: No te - New Reference Range in effect 20 Performed By: #### G FR, FES, FOL, ANEU, APTT, MG, CMP, VANCR, FERR, CBC, ADIFF ####[address] [address] Urea nitrogen [Mass/Vol] 39.0 mg/dL High 8.0-22.0 [facility] ([place] Comment on above: Performed By: #### G FR, FES, FOL, ANEU, APTT, MG, CMP, VANCR, FERR, CBC, ADIFF ####[address] [address] Partha 06-20-2024 Ferritin [Mass/Vol] 397.3 ng/mL High 26.0-388.0 [facility] ([place] Comment on above: Performed By: #### G FR, FES, FOL, ANEU, APTT, MG, CMP, VANCR, FERR, CBC, ADIFF ####[address] [address] FESon 06-20-2024 Iron [Mass/Vol] 23 ug/dL Low 65-175 [facility] ([place] Comment on above: Performed By: #### G FR, FES, FOL, ANEU, APTT, MG, CMP, VANCR, FERR, CBC, ADIFF ####[address] [address] Iron Sat 12 % Normal [facility] ([place] Comment on above: Performed By: #### G FR, FES, FOL, ANEU, APTT, MG, CMP, VANCR, FERR, CBC, ADIFF ####[place] [id number] [address] [place] [address] TIBC 191 mcg/dL Low 250-500 [facility] ([place] Comment on above: Performed By: #### G FR, FES, FOL, ANEU, APTT, MG, CMP, VANCR, FERR, CBC, ADIFF ####[place] [id number] FOLon 06-20-2024 Folate 7.93 ng/mL Normal 5.38-24.00 [facility] ([place] Comment on above: Performed By: #### G FR, FES, FOL, ANEU, APTT, MG, CMP, VANCR, FERR, CBC, ADIFF ####[place] [address] LABORATORYOrdered By: Tiffany Ervin on 06-20-2024 LDose [...] gastrointestinal tract is a clinical consideration, the [facility] recommends the use of both the guaiac fecal blood test and the Immunochemical fecal blood test. LABORATORYOrdered By: Aleksey Barajas on 06-20-2024 LDose Vancomycin: (random) See eMAR (06/20/24 2:47 AM) Normal AH Chemistry S MGon 06-20-2024 Magnesium [Mass/Vol] 1.6 mg/dL Normal 1.6-2.4 [facility] ([place] Comment on above: Performed By: #### G FR, FES, FOL, ANEU, APTT, MG, CMP, VANCR, FERR, CBC, ADIFF ####[place] [address] MRI PELVIS W/O CONTRASTon MRI PELVIS W/O CONTRAST Normal A [facility] ([place] OCC (LAB)on 06-20-2024 Occult Blood Fecal Negative Normal Negative [facility] ([place]) Comment on above: Result Comment: This test utilizes the guaiac fecal blood method, which detects peroxidase activity (heme) indicating bleedingfrom stomach, small intestine, or large intestine. Ifbleeding from either upper or lower gastrointestinal tract is a clinical consideration, the [facility] recommends the use of both the guaiac fecal blood test and the Immunochemical fecal blood test. Performed By: #### O CC ####[place] [address] VANCRon 06-20-2024 LDose Vancomycin: (random) See eMAR Normal [facility] ([place] Comment on above: Performed By: #### V ANCR ####[place] [address] Vancomycin Lvl (random) 23.2 mcg/mL Normal [facility] ([place] Comment on above: Performed By: #### V ANCR ####[place] [address] LDose Vancomycin: (random) See eMAR Normal [facility] ([place] Comment on above: Performed By: #### G FR, FES, FOL, ANEU, APTT, MG, CMP, VANCR, FERR, CBC, ADIFF ####[address] [address] Vancomycin Lvl (random) 25.0 mcg/mL Normal [facility] ([place] Comment on above: Performed By: #### G FR, FES, FOL, ANEU, APTT, MG, CMP, VANCR, FERR, CBC, ADIFF ####[address] [address] .Auto Diffon 06-19-2024 Basophil, Absolute 0.0 10 3/mcL Normal 0.0-0.3 [facility] ([place] Comment on above: Performed By: #### C MP, ADIFF, ANEU, GFR, CBC ####[place] [address] Basophils/100 WBC (Bld) 0.6 % Normal 0.0-2.5 A [facility] ([place]) Comment on above: Performed By: #### C MP, ADIFF, ANEU, GFR, CBC ####[place] [address] Eosinophil, Absolute 0.3 10 3/mcL Normal 0.0-0.7 [facility] ([place]) Comment on above: Performed By: #### C MP, ADIFF, ANEU, GFR, CBC ####[place] [address] Eosinophils/100 WBC (Bld) 4.0 % Normal 0.0-6.0 [facility] [place] Comment on above: Performed By: #### C MP, ADIFF, ANEU, GFR, CBC ####[place] [address] Lymphocyte, Absolute 2.2 10 3/mcL Normal 0.9-4.3 [facility] ([place] Comment on above: Performed By: #### C MP, ADIFF, ANEU, GFR, CBC ####[place] [address] Lymphocytes/100 WBC (Bld) 24.9 % Normal 20.0-40.0 [facility] ([place] Comment on above: Performed By: #### C MP, ADIFF, ANEU, GFR, CBC ####[address] [address] Monocyte, Absolute 1.2 10 3/mcL Normal 0.1-1.4 [facility] ([place] Comment on above: Performed By: #### C MP, ADIFF, ANEU, GFR, CBC ####[address] [address] Monocytes/100 WBC (Bld) 14.0 % High 2.0-13.0 A [facility] ([place]) Comment on above: Performed By: #### C MP, ADIFF, ANEU, GFR, CBC ####[address] [address] Neutrophils/100 WBC (Bld) 56.5 % Normal 50.0-75.0 [facility] [place] Comment on above: Performed By: #### C MP, ADIFF, ANEU, GFR, CBC ####[address] [address] .GFRon 06-19-2024 GFR Non- 25 ml/min/1.73sqm Normal [facility] ([place] Comment on above: Result Comment: GFR Population [...] #### C MP, ADIFF, ANEU, GFR, CBC ####[address] [address] GFR 30 ml/min/1.73sqm Normal [facility] ([place] Comment on above: Result Comment: GFR Population [...] #### C MP, ADIFF, ANEU, GFR, CBC ####[place] [address] .NEUABSon 06-19-2024 Neutrophil, Absolute 4.9 10 3/mcL Normal 2.3-8.1 [facility] ([place] Comment on above: Performed By: #### C MP, ADIFF, ANEU, GFR, CBC ####[place] [address] APTTon 06-19-2024 aPTT Coag (Bld) [Time] 34.2 s Normal 25.0-35.0 [facility] ([place] Comment on above: Result Comment: For Heparin anticoagulation therapy, the recommendedtherapeutic range is: 54-77 seconds (APTT Correlationwith Anti-Xa therapeutic range of 0.3-0.7 units/ml).PLEASE REFERENCE THE PHARMACY PROTOCOL FOR DOSING. Performed By: #### A PTT ####[place] [address] aPTT Coag (Bld) [Time] 32.3 s Normal 25.0-35.0 [facility] ([place] Comment on above: Result Comment: For Heparin anticoagulation therapy, the recommendedtherapeutic range is: 54-77 seconds (APTT Correlationwith Anti-Xa therapeutic range of 0.3-0.7 units/ml).PLEASE REFERENCE THE PHARMACY PROTOCOL FOR DOSING. Performed By: #### A PTT ####[place] [address] [id number] By: SYSTEM SYSTEM on 06-19-2024 Cobalamin (Vitamin B12) [Mass/Vol] 857 pg/mL Normal 211-911 AH ADM SS Comment on above: Performed By: #### B 12, HH ####[place] [address] CBCon 06-19-2024 Erythrocyte distribution width (RBC) [Ratio] 18.6 % High 11.5-15.5 [facility] ([place] Comment on above: Performed By: #### C MP, ADIFF, ANEU, GFR, CBC ####[place] [address] Hematocrit (Bld) [Volume fraction] 21.2 % Low 40.0-52.0 [facility] ([place]) Comment on above: Performed By: #### C MP, ADIFF, ANEU, GFR, CBC ####[place] [address] Hgb 7.1 G/dL Low 13.0-17.5 [facility] ([place]) Comment on above: Performed By: #### C MP, ADIFF, ANEU, GFR, CBC ####[place] [address] MCH (RBC) [Entitic mass] 26.6 pg Low 27.0-33.0 [facility] ([place]) Comment on above: Performed By: #### C MP, ADIFF, ANEU, GFR, CBC ####[place] [address] MCHC 33.5 G/dL Normal 32.0-36.0 [facility] ([place] Comment on above: Performed By: #### C MP, ADIFF, ANEU, GFR, CBC ####[place] [address] MCV (RBC) [Entitic vol] 79.4 fL Low 81.0-100.0 A [facility] ([place]) Comment on above: Performed By: #### C MP, ADIFF, ANEU, GFR, CBC ####[place] [address] Platelet 418 10 3/mcL Normal 150-450 [facility] ([place] Comment on above: Performed By: #### C MP, ADIFF, ANEU, GFR, CBC ####[place] [address] Platelet mean volume (Bld) [Entitic vol] 7.2 fL Normal 6.4-10.5 [facility] ([place] Comment on above: Performed By: #### C MP, ADIFF, ANEU, GFR, CBC ####[place] [address] RBC 2.67 10 6/mcL Low 4.50-6.00 [facility] ([place] Comment on above: Performed By: #### C MP, ADIFF, ANEU, GFR, CBC ####[place] [address] WBC 8.7 10 3/mcL Normal 4.5-10.8 [facility] ([place] Comment on above: Performed By: #### C MP, ADIFF, ANEU, GFR, CBC ####[place] [address] CMPon 06-19-2024 Albumin Level 1.2 G/dL Low 3.2-4.8 [facility] ([place] Comment on above: Performed By: #### C MP, ADIFF, ANEU, GFR, CBC ####[place] [address] Albumin/Globulin [Mass ratio] 0.3 {ratio} Low 0.9-1.6 [facility] ([place] Comment on above: Performed By: #### C MP, ADIFF, ANEU, GFR, CBC ####[place] [address] ALP [Catalytic activity/Vol] 1435 U/L High 38-126 [facility] ([place] Comment on above: Performed By: #### C MP, ADIFF, ANEU, GFR, CBC ####[place] [address] ALT [Catalytic activity/Vol] 45 U/L Normal 12-55 [facility] ([place] Comment on above: Performed By: #### C MP, ADIFF, ANEU, GFR, CBC ####[place] [address] AST [Catalytic activity/Vol] 58 U/L High 8-34 [facility] ([place] Comment on above: Performed By: #### C MP, ADIFF, ANEU, GFR, CBC ####[address] [address] Bili Total 0.30 mg/dL Normal 0.20-1.20 [facility] ([place] Comment on above: Result Comment: Use of this assay is not recommended for patients undergoing treatment with eltrombopag due to the potential for falsely elevated results. Performed By: #### C MP, ADIFF, ANEU, GFR, CBC ####[place] [address] BUN/Creatinine Ratio 19.0 ratio Normal 10.0-22.0 [facility] ([place]) Comment on above: Performed By: #### C MP, ADIFF, ANEU, GFR, CBC ####[address] [address] Calcium [Mass/Vol] 7.2 mg/dL Low 8.7-10.4 [facility] ([place]) Comment on above: Performed By: #### C MP, ADIFF, ANEU, GFR, CBC ####[address] [address] Chloride [Moles/Vol] 108 mmol/L Normal 98-110 [facility] ([place] Comment on above: Performed By: #### C MP, ADIFF, ANEU, GFR, CBC ####[address] [address] CO2 [Moles/Vol] 24 mmol/L Normal 22-32 [facility] ([place] Comment on above: Performed By: #### C MP, ADIFF, ANEU, GFR, CBC ####[address] [address] Creatinine [Mass/Vol] 2.74 mg/dL High 0.60-1.40 [facility] ([place]) Comment on above: Performed By: #### C MP, ADIFF, ANEU, GFR, CBC ####[place] [address] Electrolyte Balance 2.0 mEq/L Low 4.0-15.0 [facility] ([place] Comment on above: Performed By: #### C MP, ADIFF, ANEU, GFR, CBC ####[address] [address] Globulin 4.7 G/dL High 1.5-3.8 [facility] ([place] Comment on above: Performed By: #### C MP, ADIFF, ANEU, GFR, CBC ####[address] [address] Glucose [Mass/Vol] 73 mg/dL Normal 70-110 [facility] ([place]) Comment on above: Performed By: #### C MP, ADIFF, ANEU, GFR, CBC ####[place] [address] Potassium [Moles/Vol] 4.2 mmol/L Normal 3.5-5.0 [facility] ([place] Comment on above: Performed By: #### C MP, ADIFF, ANEU, GFR, CBC ####[place] [address] Sodium [Moles/Vol] 134 mmol/L Low 136-145 [facility] ([place]) Comment on above: Performed By: #### C MP, ADIFF, ANEU, GFR, CBC ####[place] [address] Total Protein 5.9 G/dL Normal 5.7-8.2 [facility] ([place] Comment on above: Result Comment: No te - New Reference Range in effect 20 Performed By: #### C MP, ADIFF, ANEU, GFR, CBC ####[address] [address] Urea nitrogen [Mass/Vol] 52.0 mg/dL High 8.0-22.0 [facility] ([place] Comment on above: Performed By: #### C MP, ADIFF, ANEU, GFR, CBC ####[address] [address] HHon 06-19-2024 Hematocrit (Bld) [Volume fraction] 23.7 % Low 40.0-52.0 [facility] ([place] Comment on above: Performed By: #### H H ####[place] [address] Hgb 7.9 G/dL Low 13.0-17.5 [facility] ([place] Comment on above: Performed By: #### H H ####[place] [address] Hematocrit (Bld) [Volume fraction] 22.8 % Low 40.0-52.0 [facility] ([place] Comment on above: Performed By: #### B 12, HH ####[place] [address] Hgb 7.6 G/dL Low 13.0-17.5 [facility] ([place] Comment on above: Performed By: #### B 12, HH ####[place] [address] LABORATORYOrdered By: Heber Mcmullen on 06-19-2024 LDose Vancomycin: (random) See eMAR (06/19/24 7:25 PM) Normal Chemistry S LABORATORYOrdered By: SYSTEM SYSTEM on 06-19-2024 Vancomycin [Mass/Vol] 29.5 mcg/mL Invalid Interpretation Code AH ADM SS VANCRon 06-19-2024 LDose Vancomycin: (random) See eMAR Normal [facility] ([place] Comment on above: Performed By: #### V ANCR ####[place] [address] Vancomycin Lvl (random) 29.5 mcg/mL Normal [facility] ([place] Comment on above: Performed By: #### V ANCR ####[place] [address] .Auto Diffon 06-18-2024 Basophil, Absolute 0.0 10 3/mcL Normal 0.0-0.3 [facility] ([place] Comment on above: Performed By: #### B MP, GFR, ADIFF, CBC, ANEU, CK ####[place] [address] Basophils/100 WBC (Bld) 0.4 % Normal 0.0-2.5 A [facility] ([place] Comment on above: Performed By: #### B MP, GFR, ADIFF, CBC, ANEU, CK ####[address] [address] Eosinophil, Absolute 0.2 10 3/mcL Normal 0.0-0.7 [facility] ([place]) Comment on above: Performed By: #### B MP, GFR, ADIFF, CBC, ANEU, CK ####[address] [address] Eosinophils/100 WBC (Bld) 2.3 % Normal 0.0-6.0 [facility] ([place] Comment on above: Performed By: #### B MP, GFR, ADIFF, CBC, ANEU, CK ####[address] [address] Lymphocyte, Absolute 1.8 10 3/mcL Normal 0.9-4.3 [facility] ([place] Comment on above: Performed By: #### B MP, GFR, ADIFF, CBC, ANEU, CK ####[address] [address] Lymphocytes/100 WBC (Bld) 18.4 % Low 20.0-40.0 [facility] ([place] Comment on above: Performed By: #### B MP, GFR, ADIFF, CBC, ANEU, CK ####[address] [address] Monocyte, Absolute 1.2 10 3/mcL Normal 0.1-1.4 [facility] ([place] Comment on above: Performed By: #### B MP, GFR, ADIFF, CBC, ANEU, CK ####[address] [address] Monocytes/100 WBC (Bld) 11.5 % Normal 2.0-13.0 A [facility] ([place]) Comment on above: Performed By: #### B MP, GFR, ADIFF, CBC, ANEU, CK ####[address] [address] Neutrophils/100 WBC (Bld) 67.4 % Normal 50.0-75.0 [facility] ([place]) Comment on above: Performed By: #### B MP, GFR, ADIFF, CBC, ANEU, CK ####[place] [address] .GFRon 06-18-2024 GFR 30 ml/min/1.73sqm Normal [facility] ([place] Comment on above: Result Comment: GFR Population [...] B MP, GFR, ADIFF, CBC, ANEU, CK ####[place] [address] GFR Non- 25 ml/min/1.73sqm Normal [facility] ([place] Comment on above: Result Comment: GFR Population [...] B MP, GFR, ADIFF, CBC, ANEU, CK ####[place] [address] .NEUABSon 06-18-2024 Neutrophil, Absolute 6.7 10 3/mcL Normal 2.3-8.1 [facility] ([place] Comment on above: Performed By: #### B MP, GFR, ADIFF, CBC, ANEU, CK ####[address] [address] BMPon 06-18-2024 BUN/Creatinine Ratio 19.6 ratio Normal 10.0-22.0 [facility] ([place] Comment on above: Performed By: #### B MP, GFR, ADIFF, CBC, ANEU, CK ####[place] [address] Calcium [Mass/Vol] 7.9 mg/dL Low 8.7-10.4 [facility] ([place]) Comment on above: Performed By: #### B MP, GFR, ADIFF, CBC, ANEU, CK ####[place] [address] Chloride [Moles/Vol] 105 mmol/L Normal 98-110 [facility] ([place] Comment on above: Performed By: #### B MP, GFR, ADIFF, CBC, ANEU, CK ####[place] [address] CO2 [Moles/Vol] 23 mmol/L Normal 22-32 [facility] ([place] Comment on above: Performed By: #### B MP, GFR, ADIFF, CBC, ANEU, CK ####[place] [address] Creatinine [Mass/Vol] 2.75 mg/dL High 0.60-1.40 [facility] ([place] Comment on above: Performed By: #### B MP, GFR, ADIFF, CBC, ANEU, CK ####[place] [address] Electrolyte Balance 5.0 mEq/L Normal 4.0-15.0 [facility] ([place]) Comment on above: Performed By: #### B MP, GFR, ADIFF, CBC, ANEU, CK ####[place] [address] Glucose [Mass/Vol] 103 mg/dL Normal 70-110 [facility] ([place]) Comment on above: Performed By: #### B MP, GFR, ADIFF, CBC, ANEU, CK ####[place] [address] Potassium [Moles/Vol] 4.3 mmol/L Normal 3.5-5.0 [facility] ([place] Comment on above: Performed By: #### B MP, GFR, ADIFF, CBC, ANEU, CK ####[place] [address] Sodium [Moles/Vol] 133 mmol/L Low 136-145 [facility] ([place] Comment on above: Performed By: #### B MP, GFR, ADIFF, CBC, ANEU, CK ####[place] [address] Urea nitrogen [Mass/Vol] 54.0 mg/dL High 8.0-22.0 [facility] ([place] Comment on above: Performed By: #### B MP, GFR, ADIFF, CBC, ANEU, CK ####[place] [address] CBCon 06-18-2024 Erythrocyte distribution width (RBC) [Ratio] 18.4 % High 11.5-15.5 [facility] [place] Comment on above: Performed By: #### B MP, GFR, ADIFF, CBC, ANEU, CK ####[place] [address] Hematocrit (Bld) [Volume fraction] 22.7 % Low 40.0-52.0 [facility] ([place] Comment on above: Performed By: #### B MP, GFR, ADIFF, CBC, ANEU, CK ####[place] [address] Hgb 7.7 G/dL Low 13.0-17.5 [facility] ([place] Comment on above: Performed By: #### B MP, GFR, ADIFF, CBC, ANEU, CK ####[place] [address] MCH (RBC) [Entitic mass] 27.4 pg Normal 27.0-33.0 [facility] ([place] Comment on above: Performed By: #### B MP, GFR, ADIFF, CBC, ANEU, CK ####[place] [address] MCHC 33.7 G/dL Normal 32.0-36.0 [facility] ([place] Comment on above: Performed By: #### B MP, GFR, ADIFF, CBC, ANEU, CK ####[place] [address] MCV (RBC) [Entitic vol] 81.4 fL Normal 81.0-100.0 A [facility] ([place] Comment on above: Performed By: #### B MP, GFR, ADIFF, CBC, ANEU, CK ####[place] [address] Platelet 433 10 3/mcL Normal 150-450 [facility] ([place] Comment on above: Performed By: #### B MP, GFR, ADIFF, CBC, ANEU, CK ####[place] [address] Platelet mean volume (Bld) [Entitic vol] 7.2 fL Normal 6.4-10.5 [facility] ([place] Comment on above: Performed By: #### B MP, GFR, ADIFF, CBC, ANEU, CK ####[place] [address] RBC 2.79 10 6/mcL Low 4.50-6.00 [facility] ([place] Comment on above: Performed By: #### B MP, GFR, ADIFF, CBC, ANEU, CK ####[place] [address] WBC 10.0 10 3/mcL Normal 4.5-10.8 [facility] ([place] Comment on above: Performed By: #### B MP, GFR, ADIFF, CBC, ANEU, CK ####[place] [address] CKon 06-18-2024 CK [Catalytic activity/Vol] 16 U/L Normal 7-185 [facility] ([place] Comment on above: Performed By: #### B MP, GFR, ADIFF, CBC, ANEU, CK ####[place] [address] CRPon 06-18-2024 C-Reactive Protein 6.4 mg/dL High 0.0-1.0 [facility] ([place]) Comment on above: Result Comment: No te - New Reference Range in effect 20 Performed By: #### C RP, ESR ####[place] [address] ESRon 06-18-2024 Erythrocyte Sed Rate 54 mm/hr High 0-15 [facility] ([place] Comment on above: Performed By: #### C RP, ESR ####[place] [address] LABORATORYOrdered By: SYSTEM SYSTEM on 06-18-2024 CK [...] Blood Culture: No Growth at 5 days. [facility] Work Phone: .Auto Diffon 06-06-2024 Basophil, Absolute 0.0 10 3/mcL Normal 0.0-0.2 [facility] ([place]) Comment on above: Performed By: #### M ORPH, ADIFF, GFR, MDW, BMP, ANEU, CBC ###[address] [place], [place] [address] Basophils/100 WBC (Bld) 0.3 % Normal 0.0-2.5 A [facility] ([place]) Comment on above: Performed By: #### M ORPH, ADIFF, GFR, MDW, BMP, ANEU, CBC ####[place] [address] [place], [place] [address] Eosinophil, Absolute 0.3 10 3/mcL Normal 0.0-0.4 [facility] ([place] Comment on above: Performed By: #### M ORPH, ADIFF, GFR, MDW, BMP, ANEU, CBC ####[place] [address] [place], [place] [address] Eosinophils/100 WBC (Bld) 2.1 % Normal 0.0-7.0 [facility] ([place]) Comment on above: Performed By: #### M ORPH, ADIFF, GFR, MDW, BMP, ANEU, CBC ####[place] [address] [place], [place] [address] Lymphocyte, Absolute 2.9 10 3/mcL Normal 0.8-3.9 [facility] ([place]) Comment on above: Performed By: #### M ORPH, ADIFF, GFR, MDW, BMP, ANEU, CBC ####[place] [address] [place], [place] [address] Lymphocytes/100 WBC (Bld) 17.7 % Normal 10.0-50.0 [facility] ([place]) Comment on above: Performed By: #### M ORPH, ADIFF, GFR, MDW, BMP, ANEU, CBC ####[place] [address] [place], [place] [address] Monocyte, Absolute 1.6 10 3/mcL High 0.2-1.0 [facility] ([place] Comment on above: Performed By: #### M ORPH, ADIFF, GFR, MDW, BMP, ANEU, CBC ####[place] [address] [place], [place] [address] Monocytes/100 WBC (Bld) 9.5 % Normal 1.7-13.0 [facility] ([place]) Comment on above: Performed By: #### M ORPH, ADIFF, GFR, MDW, BMP, ANEU, CBC ####[place] [address] [place], [place] [address] Neutrophils/100 WBC (Bld) 70.1 % Normal 37.0-80.0 [facility] ([place]) Comment on above: Performed By: #### M ORPH, ADIFF, GFR, MDW, BMP, ANEU, CBC ####[place] [address] [place], [place] [address] .GFRon 06-06-2024 GFR 23 ml/min/1.73sqm Normal [facility] ([place] Comment on above: Result Comment: GFR Population [...] GFR, MDW, BMP, ANEU, CBC ####[place] [address] [place], [place] [address] GFR Non- 19 ml/min/1.73sqm Normal [facility] ([place] Comment on above: Result Comment: GFR Population [...] ADIFF, GFR, MDW, BMP, ANEU, CBC ####[place] [address] [place], [place] [address] .MDWon 06-06-2024 Monocyte Distribution Width Not tested Normal 0.00-20.00 [facility] ([place] Comment on above: Result Comment: MDW testing unable to be performed on [id number] instrumentation. Performed By: #### M ORPH, ADIFF, GFR, MDW, BMP, ANEU, CBC ####[place] [address] [place], [place] [address] .Morphon 06-06-2024 Platelet Estimate Slt Increased Normal [facility] ([place]) Comment on above: Performed By: #### M ORPH, ADIFF, GFR, MDW, BMP, ANEU, CBC ####[place] [address] [place] [address] .NEUABSon 06-06-2024 Neutrophil, Absolute 11.8 10 3/mcL High 2.9-6.2 A [facility] ([place] Comment on above: Performed By: #### M ORPH, ADIFF, GFR, MDW, BMP, ANEU, CBC ####[place] [address] [place], [place] [address] BMPon 06-06-2024 BUN/Creatinine Ratio 25 ratio Normal 7-27 [facility] ([place] Comment on above: Performed By: #### M ORPH, ADIFF, GFR, MDW, BMP, ANEU, CBC ####[place] [address] [place], [place] [address] Calcium [Mass/Vol] 8.4 mg/dL Normal 8.4-10.2 [facility] ([place]) Comment on above: Performed By: #### M ORPH, ADIFF, GFR, MDW, BMP, ANEU, CBC ####[place] [address] [place], [place] [address] Chloride [Moles/Vol] 96 mmol/L Low 98-107 [facility] ([place] Comment on above: Performed By: #### M ORPH, ADIFF, GFR, MDW, BMP, ANEU, CBC ####[place] [address] [place], [place] [address] CO2 [Moles/Vol] 27 mmol/L Normal 22-29 [facility] ([place] Comment on above: Performed By: #### M ORPH, ADIFF, GFR, MDW, BMP, ANEU, CBC ####[place] [address] [place], [place] [address] Creatinine [Mass/Vol] 3.49 mg/dL High 0.70-1.30 [facility] ([place] Comment on above: Performed By: #### M ORPH, ADIFF, GFR, MDW, BMP, ANEU, CBC ####[place] [address] [place], [place] [address] Electrolyte Balance 6.0 mEq/L Normal 4.0-15.0 [facility] ([place] Comment on above: Performed By: #### M ORPH, ADIFF, GFR, MDW, BMP, ANEU, CBC ####[place] [address] [place], [place] [address] Glucose [Mass/Vol] 190 mg/dL High 70-105 [facility] ([place]) Comment on above: Performed By: #### M ORPH, ADIFF, GFR, MDW, BMP, ANEU, CBC ####[place] [address] [place], [place] [address] Potassium [Moles/Vol] 4.6 mmol/L Normal 3.5-5.1 [facility] ([place] Comment on above: Performed By: #### M ORPH, ADIFF, GFR, MDW, BMP, ANEU, CBC ####[place] [address] [place], [place] [address] Sodium [Moles/Vol] 129 mmol/L Low 136-145 [facility] ([place]) Comment on above: Performed By: #### M ORPH, ADIFF, GFR, MDW, BMP, ANEU, CBC ####[place] [address] [place], [place] [address] Urea nitrogen [Mass/Vol] 86 mg/dL High 7-18 [facility] [place] Comment on above: Performed By: #### M ORPH, ADIFF, GFR, MDW, BMP, ANEU, CBC ####[place] [address] [place], [place] [address] CBCon 06-06-2024 Erythrocyte distribution width (RBC) [Ratio] 18.1 % High 11.5-14.5 [facility] [place] Comment on above: Performed By: #### M ORPH, ADIFF, GFR, MDW, BMP, ANEU, CBC ####[place] [address] [place], [place] [address] Hematocrit (Bld) [Volume fraction] 25.4 % Low 42.0-52.0 [facility] ([place] Comment on above: Performed By: #### M ORPH, ADIFF, GFR, MDW, BMP, ANEU, CBC ####[place] [address] [place], [place] [address] Hgb 8.2 G/dL Low 14.0-18.0 [facility] ([place] Comment on above: Performed By: #### M ORPH, ADIFF, GFR, MDW, BMP, ANEU, CBC ####[place] [address] [place], [place] [address] MCH (RBC) [Entitic mass] 25.8 pg Low 27.0-31.2 [facility] [place] Comment on above: Performed By: #### M ORPH, ADIFF, GFR, MDW, BMP, ANEU, CBC ####[place] [address] [place], [place] [address] MCHC 32.3 G/dL Normal 31.8-35.4 [facility] ([place] Comment on above: Performed By: #### M ORPH, ADIFF, GFR, MDW, BMP, ANEU, CBC ####[place] [address] [place], [place] [address] MCV (RBC) [Entitic vol] 79.8 fL Low 80.0-94.0 A [facility] ([place] Comment on above: Performed By: #### M ORPH, ADIFF, GFR, MDW, BMP, ANEU, CBC ####[place] [address] [place], [place] [address] Platelet 479 10 3/mcL High 130-400 [facility] ([place] Comment on above: Performed By: #### M ORPH, ADIFF, GFR, MDW, BMP, ANEU, CBC ####[place] [address] [place], [place] [address] Platelet mean volume (Bld) [Entitic vol] 8.1 fL Normal 7.4-10.4 [facility] ([place] Comment on above: Performed By: #### M ORPH, ADIFF, GFR, MDW, BMP, ANEU, CBC ####[place] [address] [place], [place] [address] RBC 3.18 10 6/mcL Low 4.04-6.13 [facility] ([place]) Comment on above: Performed By: #### M ORPH, ADIFF, GFR, MDW, BMP, ANEU, CBC ####[place] [address] [place], [place] [address] WBC 16.8 10 3/mcL High 4.6-10.8 [facility] ([place] Comment on above: Performed By: #### M ORPH, ADIFF, GFR, MDW, BMP, ANEU, CBC ####[place] [address] [place], [place] [address] LABORATORYOrdered By: SYSTEM SYSTEM on 06-06-2024 Lactate [...] MDW testing unable to be performed on [id number] instrumentation. Platelet Estimate Slt Increased (06/06/24 2:02 AM) Normal AO Hematology S LACon 06-06-2024 Lactic Acid Lvl 1.4 mmol/L Normal 0.4-2.0 [facility] [place] Comment on above: Performed By: #### L AC ####[place] [address] [place], [place] [address] XR PELVIS 1 OR 2 VIEWSon XR PELVIS 1 OR 2 VIEWS Normal [facility] ([place]) CFUNGBon 05-23-2024 CFUNGB Normal [facility]) CFUNGB Normal [facility] ([place] .Auto Diffon 05-15-2024 Basophil, Absolute 0.0 10 3/mcL Normal 0.0-0.3 [facility] ([place]) Comment on above: Performed By: #### B MP, ADIFF, CBC, ANEU, GFR, MG ####[address] [address] Basophils/100 WBC (Bld) 0.1 % Normal 0.0-2.5 A [facility] ([place]) Comment on above: Performed By: #### B MP, ADIFF, CBC, ANEU, GFR, MG ####[address] [address] Eosinophil, Absolute 0.0 10 3/mcL Normal 0.0-0.7 [facility] ([place] Comment on above: Performed By: #### B MP, ADIFF, CBC, ANEU, GFR, MG ####[address] [address] Eosinophils/100 WBC (Bld) 0.0 % Normal 0.0-6.0 [facility] [place] Comment on above: Performed By: #### B MP, ADIFF, CBC, ANEU, GFR, MG ####[address] [address] Lymphocyte, Absolute 1.1 10 3/mcL Normal 0.9-4.3 [facility] ([place] Comment on above: Performed By: #### B MP, ADIFF, CBC, ANEU, GFR, MG ####[address] [address] Lymphocytes/100 WBC (Bld) 12.1 % Low 20.0-40.0 [facility] [place] Comment on above: Performed By: #### B MP, ADIFF, CBC, ANEU, GFR, MG ####[address] [address] Monocyte, Absolute 0.9 10 3/mcL Normal 0.1-1.4 [facility] ([place] Comment on above: Performed By: #### B MP, ADIFF, CBC, ANEU, GFR, MG ####[address] [address] Monocytes/100 WBC (Bld) 9.0 % Normal 2.0-13.0 A [facility] ([place] Comment on above: Performed By: #### B MP, ADIFF, CBC, ANEU, GFR, MG ####[address] [address] Neutrophils/100 WBC (Bld) 78.8 % High 50.0-75.0 [facility] [place] Comment on above: Performed By: #### B MP, ADIFF, CBC, ANEU, GFR, MG ####[address] [address] .GFRon 05-15-2024 GFR 29 ml/min/1.73sqm Normal [facility] ([place] Comment on above: Result Comment: GFR Population [...] B MP, ADIFF, CBC, ANEU, GFR, MG ####[address] [address] GFR Non- 24 ml/min/1.73sqm Normal [facility] ([place] Comment on above: Result Comment: GFR Population [...] B MP, ADIFF, CBC, ANEU, GFR, MG ####[address] [address] .NEUABSon 05-15-2024 Neutrophil, Absolute 7.4 10 3/mcL Normal 2.3-8.1 [facility] ([place] Comment on above: Performed By: #### B MP, ADIFF, CBC, ANEU, GFR, MG ####[address] [address] BMPon 05-15-2024 BUN/Creatinine Ratio 22.6 ratio High 10.0-22.0 [facility] ([place] Comment on above: Performed By: #### B MP, ADIFF, CBC, ANEU, GFR, MG ####[address] [address] Calcium [Mass/Vol] 7.6 mg/dL Low 8.7-10.4 [facility] ([place]) Comment on above: Performed By: #### B MP, ADIFF, CBC, ANEU, GFR, MG ####[address] [address] Chloride [Moles/Vol] 103 mmol/L Normal 98-110 [facility] ([place] Comment on above: Performed By: #### B MP, ADIFF, CBC, ANEU, GFR, MG ####[address] [address] CO2 [Moles/Vol] 20 mmol/L Low 22-32 [facility] ([place] Comment on above: Performed By: #### B MP, ADIFF, CBC, ANEU, GFR, MG ####[address] [address] Creatinine [Mass/Vol] 2.88 mg/dL High 0.60-1.40 [facility] ([place]) Comment on above: Performed By: #### B MP, ADIFF, CBC, ANEU, GFR, MG ####[place] [address] Electrolyte Balance 8.0 mEq/L Normal 4.0-15.0 [facility] ([place]) Comment on above: Performed By: #### B MP, ADIFF, CBC, ANEU, GFR, MG ####[place] [address] Glucose [Mass/Vol] 279 mg/dL High 70-110 [facility] ([place]) Comment on above: Performed By: #### B MP, ADIFF, CBC, ANEU, GFR, MG ####[address] [address] Potassium [Moles/Vol] 5.7 mmol/L High 3.5-5.0 [facility] ([place] Comment on above: Performed By: #### B MP, ADIFF, CBC, ANEU, GFR, MG ####[address] [address] Sodium [Moles/Vol] 131 mmol/L Low 136-145 [facility] ([place]) Comment on above: Performed By: #### B MP, ADIFF, CBC, ANEU, GFR, MG ####[address] [address] Urea nitrogen [Mass/Vol] 65.0 mg/dL High 8.0-22.0 [facility] ([place]) Comment on above: Performed By: #### B MP, ADIFF, CBC, ANEU, GFR, MG ####[place] [address] CBCon 05-15-2024 Erythrocyte distribution width (RBC) [Ratio] 19.9 % High 11.5-15.5 [facility] ([place]) Comment on above: Performed By: #### B MP, ADIFF, CBC, ANEU, GFR, MG ####[place] [address] Hematocrit (Bld) [Volume fraction] 24.5 % Low 40.0-52.0 [facility] [place] Comment on above: Performed By: #### B MP, ADIFF, CBC, ANEU, GFR, MG ####[place] [address] Hgb 8.1 G/dL Low 13.0-17.5 [facility] ([place] Comment on above: Performed By: #### B MP, ADIFF, CBC, ANEU, GFR, MG ####[place] [address] MCH (RBC) [Entitic mass] 27.3 pg Normal 27.0-33.0 [facility] ([place] Comment on above: Performed By: #### B MP, ADIFF, CBC, ANEU, GFR, MG ####[place] [address] MCHC 33.1 G/dL Normal 32.0-36.0 [facility] ([place] Comment on above: Performed By: #### B MP, ADIFF, CBC, ANEU, GFR, MG ####[place] [address] MCV (RBC) [Entitic vol] 82.6 fL Normal 81.0-100.0 A [facility] ([place] Comment on above: Performed By: #### B MP, ADIFF, CBC, ANEU, GFR, MG ####[place] [address] Platelet 153 10 3/mcL Normal 150-450 [facility] ([place] Comment on above: Performed By: #### B MP, ADIFF, CBC, ANEU, GFR, MG ####[place] [address] Platelet mean volume (Bld) [Entitic vol] 8.8 fL Normal 6.4-10.5 [facility] ([place] Comment on above: Performed By: #### B MP, ADIFF, CBC, ANEU, GFR, MG ####[place] [address] RBC 2.97 10 6/mcL Low 4.50-6.00 [facility] ([place] Comment on above: Performed By: #### B MP, ADIFF, CBC, ANEU, GFR, MG ####[place] [address] WBC 9.4 10 3/mcL Normal 4.5-10.8 [facility] [place] Comment on above: Performed By: #### B MP, ADIFF, CBC, ANEU, GFR, MG ####[place] [address] Rainer 05-15-2024 Potassium [Moles/Vol] 5.0 mmol/L Normal 3.5-5.0 [facility] ([place] Comment on above: Performed By: #### K ####[place] [address] LABORATORYOrdered By: Reanna Gannon on 05-15-2024 Blood Glucose Testing Reason Routine (05/15/24 4:36 PM) [facility] Work Phone: Glucose [Mass/Vol] 163 mg/dL High 70 - 110 mg/dL [facility] Work Phone: LABORATORYOrdered By: SYSTEM [...] Glucose Testing Reason Routine (05/15/24 11:47 AM) [facility] Work Phone: Glucose [Mass/Vol] 189 mg/dL High 70 - 110 mg/dL [facility] Work Phone: LABORATORYOrdered By: Carina Carcamo on 05-15-2024 Blood Glucose Testing Reason Routine (05/15/24 8:14 AM) [facility] Work Phone: Glucose [Mass/Vol] 252 mg/dL High 70 - 110 mg/dL [facility] Work Phone: MGon 05-15-2024 Magnesium [Mass/Vol] 1.8 mg/dL Normal 1.6-2.4 [facility] ([place] Comment on above: Performed By: #### B MP, ADIFF, CBC, ANEU, GFR, MG ####[address] [address] .Auto Diffon 05-14-2024 Basophil, Absolute 0.0 10 3/mcL Normal 0.0-0.3 [facility] ([place] Comment on above: Performed By: #### A DIFF, GFR, CBC, MG, BMP, ANEU ####[address] [address] Basophils/100 WBC (Bld) 0.6 % Normal 0.0-2.5 A [facility] ([place] Comment on above: Performed By: #### A DIFF, GFR, CBC, MG, BMP, ANEU ####[address] [address] Eosinophil, Absolute 0.3 10 3/mcL Normal 0.0-0.7 [facility] [place] Comment on above: Performed By: #### A DIFF, GFR, CBC, MG, BMP, ANEU ####[address] [address] Eosinophils/100 WBC (Bld) 3.8 % Normal 0.0-6.0 [facility] [place] Comment on above: Performed By: #### A DIFF, GFR, CBC, MG, BMP, ANEU ####[address] [address] Lymphocyte, Absolute 1.5 10 3/mcL Normal 0.9-4.3 [facility] [place] Comment on above: Performed By: #### A DIFF, GFR, CBC, MG, BMP, ANEU ####[address] [address] Lymphocytes/100 WBC (Bld) 21.4 % Normal 20.0-40.0 [facility] [place] Comment on above: Performed By: #### A DIFF, GFR, CBC, MG, BMP, ANEU ####[address] [address] Monocyte, Absolute 1.0 10 3/mcL Normal 0.1-1.4 [facility] [place] Comment on above: Performed By: #### A DIFF, GFR, CBC, MG, BMP, ANEU ####[address] [address] Monocytes/100 WBC (Bld) 14.4 % High 2.0-13.0 [facility] ([place] Comment on above: Performed By: #### A DIFF, GFR, CBC, MG, BMP, ANEU ####[address] [address] Neutrophils/100 WBC (Bld) 59.8 % Normal 50.0-75.0 [facility] [place] Comment on above: Performed By: #### A DIFF, GFR, CBC, MG, BMP, ANEU ####[address] [address] .GFRon 05-14-2024 GFR Non- 20 ml/min/1.73sqm Normal [facility] ([place] Comment on above: Result Comment: GFR Population [...] A DIFF, GFR, CBC, MG, BMP, ANEU ####[place] [address] GFR 25 ml/min/1.73sqm Normal [facility] ([place] Comment on above: Result Comment: GFR Population [...] A DIFF, GFR, CBC, MG, BMP, ANEU ####[place] [address] .NEUABSon 05-14-2024 Neutrophil, Absolute 4.1 10 3/mcL Normal 2.3-8.1 [facility] [place] Comment on above: Performed By: #### A DIFF, GFR, CBC, MG, BMP, ANEU ####[address] [address] BMPon 05-14-2024 BUN/Creatinine Ratio 18.0 ratio Normal 10.0-22.0 [facility] [place] Comment on above: Performed By: #### A DIFF, GFR, CBC, MG, BMP, ANEU ####[address] [address] Calcium [Mass/Vol] 8.0 mg/dL Low 8.7-10.4 [facility] ([place] Comment on above: Performed By: #### A DIFF, GFR, CBC, MG, BMP, ANEU ####[place] [address] Chloride [Moles/Vol] 101 mmol/L Normal 98-110 [facility] [place] Comment on above: Performed By: #### A DIFF, GFR, CBC, MG, BMP, ANEU ####[place] [address] CO2 [Moles/Vol] 23 mmol/L Normal 22-32 [facility] [place] Comment on above: Performed By: #### A DIFF, GFR, CBC, MG, BMP, ANEU ####[place] [address] Creatinine [Mass/Vol] 3.28 mg/dL High 0.60-1.40 [facility] ([place] Comment on above: Performed By: #### A DIFF, GFR, CBC, MG, BMP, ANEU ####[place] [address] Electrolyte Balance 5.0 mEq/L Normal 4.0-15.0 [facility] ([place] Comment on above: Performed By: #### A DIFF, GFR, CBC, MG, BMP, ANEU ####[place] [address] Glucose [Mass/Vol] 160 mg/dL High 70-110 [facility] ([place] Comment on above: Performed By: #### A DIFF, GFR, CBC, MG, BMP, ANEU ####[place] [address] Potassium [Moles/Vol] 5.1 mmol/L High 3.5-5.0 [facility] ([place] Comment on above: Performed By: #### A DIFF, GFR, CBC, MG, BMP, ANEU ####[place] [address] Sodium [Moles/Vol] 129 mmol/L Low 136-145 [facility] ([place] Comment on above: Performed By: #### A DIFF, GFR, CBC, MG, BMP, ANEU ####[place] [address] Urea nitrogen [Mass/Vol] 59.0 mg/dL High 8.0-22.0 [facility] [place] Comment on above: Performed By: #### A DIFF, GFR, CBC, MG, BMP, ANEU ####[place] [address] CBCon 05-14-2024 Erythrocyte distribution width (RBC) [Ratio] 20.0 % High 11.5-15.5 [facility] [place] Comment on above: Performed By: #### A DIFF, GFR, CBC, MG, BMP, ANEU ####[place] [address] Hematocrit (Bld) [Volume fraction] 24.8 % Low 40.0-52.0 [facility] [place] Comment on above: Performed By: #### A DIFF, GFR, CBC, MG, BMP, ANEU ####[place] [address] Hgb 8.3 G/dL Low 13.0-17.5 [facility] [place] Comment on above: Performed By: #### A DIFF, GFR, CBC, MG, BMP, ANEU ####[place] [address] MCH (RBC) [Entitic mass] 27.4 pg Normal 27.0-33.0 [facility] [place] Comment on above: Performed By: #### A DIFF, GFR, CBC, MG, BMP, ANEU ####[place] [address] MCHC 33.4 G/dL Normal 32.0-36.0 [facility] [place] Comment on above: Performed By: #### A DIFF, GFR, CBC, MG, BMP, ANEU ####[place] [address] MCV (RBC) [Entitic vol] 82.1 fL Normal 81.0-100.0 A [facility] ([place] Comment on above: Performed By: #### A DIFF, GFR, CBC, MG, BMP, ANEU ####[place] [address] Platelet 121 10 3/mcL Low 150-450 [facility] [place] Comment on above: Performed By: #### A DIFF, GFR, CBC, MG, BMP, ANEU ####[place] [address] Platelet mean volume (Bld) [Entitic vol] 8.6 fL Normal 6.4-10.5 [facility] [place] Comment on above: Performed By: #### A DIFF, GFR, CBC, MG, BMP, ANEU ####[place] [address] RBC 3.02 10 6/mcL Low 4.50-6.00 [facility] [place] Comment on above: Performed By: #### A DIFF, GFR, CBC, MG, BMP, ANEU ####[place] [address] WBC 6.8 10 3/mcL Normal 4.5-10.8 [facility] [place] Comment on above: Performed By: #### A DIFF, GFR, CBC, MG, BMP, ANEU ####[place] [address] LABORATORYOrdered By: SYSTEM SYSTEM on 05-14-2024 Basophils [...] 05-14-2024 Magnesium [Mass/Vol] 1.9 mg/dL Normal 1.6-2.4 [facility] [place] Comment on above: Performed By: #### A DIFF, GFR, CBC, MG, BMP, ANEU ####[address] [address] .Auto Diffon 05-13-2024 Basophil, Absolute 0.0 10 3/mcL Normal 0.0-0.3 [facility] [place] Comment on above: Performed By: #### C BC, GFR, MG, BMP, ADIFF, ANEU ####[address] [address] Basophils/100 WBC (Bld) 0.5 % Normal 0.0-2.5 A [facility] ([place] Comment on above: Performed By: #### C BC, GFR, MG, BMP, ADIFF, ANEU ####[address] [address] Eosinophil, Absolute 0.2 10 3/mcL Normal 0.0-0.7 [facility] [place] Comment on above: Performed By: #### C BC, GFR, MG, BMP, ADIFF, ANEU ####[address] [address] Eosinophils/100 WBC (Bld) 2.6 % Normal 0.0-6.0 [facility] [place] Comment on above: Performed By: #### C BC, GFR, MG, BMP, ADIFF, ANEU ####[address] [address] Lymphocyte, Absolute 1.3 10 3/mcL Normal 0.9-4.3 [facility] [place] Comment on above: Performed By: #### C BC, GFR, MG, BMP, ADIFF, ANEU ####[address] [address] Lymphocytes/100 WBC (Bld) 18.1 % Low 20.0-40.0 [facility] [place] Comment on above: Performed By: #### C BC, GFR, MG, BMP, ADIFF, ANEU ####[address] [address] Monocyte, Absolute 1.0 10 3/mcL Normal 0.1-1.4 [facility] [place] Comment on above: Performed By: #### C BC, GFR, MG, BMP, ADIFF, ANEU ####[address] [address] Monocytes/100 WBC (Bld) 13.3 % High 2.0-13.0 A [facility] ([place] Comment on above: Performed By: #### C BC, GFR, MG, BMP, ADIFF, ANEU ####[address] [address] Neutrophils/100 WBC (Bld) 65.5 % Normal 50.0-75.0 [facility] [place] Comment on above: Performed By: #### C BC, GFR, MG, BMP, ADIFF, ANEU ####[address] [address] .GFRon 05-13-2024 GFR 25 ml/min/1.73sqm Normal [facility] [place] Comment on above: Result Comment: GFR Population [...] meters Performed By: #### G FR, BMP ####[address] [address] GFR Non- 21 ml/min/1.73sqm Normal [facility] ([place] Comment on above: Result Comment: GFR Population [...] meters Performed By: #### G FR, BMP ####[address] [address] GFR 26 ml/min/1.73sqm Normal [facility] ([place] Comment on above: Result Comment: GFR Population [...] C BC, GFR, MG, BMP, ADIFF, ANEU ####[address] [address] GFR Non- 22 ml/min/1.73sqm Normal [facility] ([place] Comment on above: Result Comment: GFR Population [...] C BC, GFR, MG, BMP, ADIFF, ANEU ####[address] [address] .NEUABSon 05-13-2024 Neutrophil, Absolute 4.9 10 3/mcL Normal 2.3-8.1 [facility] [place] Comment on above: Performed By: #### C BC, GFR, MG, BMP, ADIFF, ANEU ####[address] [address] BMPon 05-13-2024 BUN/Creatinine Ratio 19.1 ratio Normal 10.0-22.0 [facility] [place] Comment on above: Performed By: #### G FR, BMP ####[address] [address] Calcium [Mass/Vol] 7.6 mg/dL Low 8.7-10.4 [facility] ([place] Comment on above: Performed By: #### G FR, BMP ####[address] [address] Chloride [Moles/Vol] 100 mmol/L Normal 98-110 [facility] [place] Comment on above: Performed By: #### G FR, BMP ####[address] [address] CO2 [Moles/Vol] 21 mmol/L Low 22-32 [facility] [place] Comment on above: Performed By: #### G FR, BMP ####[address] [address] Creatinine [Mass/Vol] 3.25 mg/dL High 0.60-1.40 [facility] ([place] Comment on above: Performed By: #### Elizabeth SOTO, BMP ####[place] [address] Electrolyte Balance 11.0 mEq/L Normal 4.0-15.0 [facility] ([place] Comment on above: Performed By: #### Elizabeth SOTO, BMP ####[address] [address] Glucose [Mass/Vol] 166 mg/dL High 70-110 [facility] ([place] Comment on above: Performed By: #### Elizabeth SOTO, BMP ####[place] [address] Potassium [Moles/Vol] 5.4 mmol/L High 3.5-5.0 [facility] [place] Comment on above: Result Comment: Spec imen slightly hemolyzed. Performed By: #### Elizabeth SOTO, BMP ####[place] [address] Sodium [Moles/Vol] 132 mmol/L Low 136-145 [facility] ([place] Comment on above: Performed By: #### Elizabeth SOTO, BMP ####[address] [address] Urea nitrogen [Mass/Vol] 62.0 mg/dL High 8.0-22.0 [facility] [place] Comment on above: Performed By: #### Elizabeth FR, BMP ####[place] [address] BUN/Creatinine Ratio 17.9 ratio Normal 10.0-22.0 [facility] [place] Comment on above: Performed By: #### C BC, GFR, MG, BMP, ADIFF, ANEU ####[address] [address] Calcium [Mass/Vol] 8.0 mg/dL Low 8.7-10.4 [facility] ([place] Comment on above: Performed By: #### C BC, GFR, MG, BMP, ADIFF, ANEU ####[address] [address] Chloride [Moles/Vol] 101 mmol/L Normal 98-110 [facility] [place] Comment on above: Performed By: #### C BC, GFR, MG, BMP, ADIFF, ANEU ####[address] [address] CO2 [Moles/Vol] 21 mmol/L Low 22-32 [facility] [place] Comment on above: Performed By: #### C BC, GFR, MG, BMP, ADIFF, ANEU ####[address] [address] Creatinine [Mass/Vol] 3.12 mg/dL High 0.60-1.40 [facility] [place] Comment on above: Performed By: #### C BC, GFR, MG, BMP, ADIFF, ANEU ####[place] [address] Electrolyte Balance 9.0 mEq/L Normal 4.0-15.0 [facility] [place] Comment on above: Performed By: #### C BC, GFR, MG, BMP, ADIFF, ANEU ####[place] [address] Glucose [Mass/Vol] 161 mg/dL High 70-110 [facility] ([place] Comment on above: Performed By: #### C BC, GFR, MG, BMP, ADIFF, ANEU ####[address] [address] Potassium [Moles/Vol] 5.1 mmol/L High 3.5-5.0 [facility] [place] Comment on above: Performed By: #### C BC, GFR, MG, BMP, ADIFF, ANEU ####[address] [address] Sodium [Moles/Vol] 131 mmol/L Low 136-145 [facility] ([place] Comment on above: Performed By: #### C BC, GFR, MG, BMP, ADIFF, ANEU ####[address] [address] Urea nitrogen [Mass/Vol] 56.0 mg/dL High 8.0-22.0 [facility] [place] Comment on above: Performed By: #### C BC, GFR, MG, BMP, ADIFF, ANEU ####[place] [address] CBCon 05-13-2024 Erythrocyte distribution width (RBC) [Ratio] 19.2 % High 11.5-15.5 [facility] [place] Comment on above: Performed By: #### C BC, GFR, MG, BMP, ADIFF, ANEU ####[place] [address] Hematocrit (Bld) [Volume fraction] 25.1 % Low 40.0-52.0 [facility] [place] Comment on above: Performed By: #### C BC, GFR, MG, BMP, ADIFF, ANEU ####[place] [address] Hgb 8.2 G/dL Low 13.0-17.5 [facility] [place] Comment on above: Performed By: #### C BC, GFR, MG, BMP, ADIFF, ANEU ####[place] [address] MCH (RBC) [Entitic mass] 27.1 pg Normal 27.0-33.0 [facility] [place] Comment on above: Performed By: #### C BC, GFR, MG, BMP, ADIFF, ANEU ####[place] [address] MCHC 32.7 G/dL Normal 32.0-36.0 [facility] [place] Comment on above: Performed By: #### C BC, GFR, MG, BMP, ADIFF, ANEU ####[place] [address] MCV (RBC) [Entitic vol] 83.0 fL Normal 81.0-100.0 A [facility] ([place] Comment on above: Performed By: #### C BC, GFR, MG, BMP, ADIFF, ANEU ####[address] [address] Platelet 101 10 3/mcL Low 150-450 [facility] [place] Comment on above: Performed By: #### C BC, GFR, MG, BMP, ADIFF, ANEU ####[place] [address] Platelet mean volume (Bld) [Entitic vol] 8.2 fL Normal 6.4-10.5 [facility] [place] Comment on above: Performed By: #### C BC, GFR, MG, BMP, ADIFF, ANEU ####[place] [address] RBC 3.03 10 6/mcL Low 4.50-6.00 [facility] [place] Comment on above: Performed By: #### C BC, GFR, MG, BMP, ADIFF, ANEU ####[place] [address] WBC 7.4 10 3/mcL Normal 4.5-10.8 [facility] [place] Comment on above: Performed By: #### C BC, GFR, MG, BMP, ADIFF, ANEU ####[place] [address] LABORATORYOrdered By: SYSTEM SYSTEM on 05-13-2024 Calcium [...] 05-13-2024 Magnesium [Mass/Vol] 2.0 mg/dL Normal 1.6-2.4 [facility] [place] Comment on above: Performed By: #### C BC, GFR, MG, BMP, ADIFF, ANEU ####[address] [address] .Auto Diffon 05-12-2024 Basophil, Absolute 0.1 10 3/mcL Normal 0.0-0.3 [facility] [place] Comment on above: Performed By: #### B MP, CBC, ADIFF, ANEU, GFR, MG ####[address] [address] Basophils/100 WBC (Bld) 0.5 % Normal 0.0-2.5 A [facility] ([place] Comment on above: Performed By: #### B MP, CBC, ADIFF, ANEU, GFR, MG ####[address] [address] Eosinophil, Absolute 0.2 10 3/mcL Normal 0.0-0.7 [facility] [place] Comment on above: Performed By: #### B MP, CBC, ADIFF, ANEU, GFR, MG ####[address] [address] Eosinophils/100 WBC (Bld) 1.6 % Normal 0.0-6.0 [facility] [place] Comment on above: Performed By: #### B MP, CBC, ADIFF, ANEU, GFR, MG ####[address] [address] Lymphocyte, Absolute 1.7 10 3/mcL Normal 0.9-4.3 [facility] [place] Comment on above: Performed By: #### B MP, CBC, ADIFF, ANEU, GFR, MG ####[address] [address] Lymphocytes/100 WBC (Bld) 16.4 % Low 20.0-40.0 [facility] [place] Comment on above: Performed By: #### B MP, CBC, ADIFF, ANEU, GFR, MG ####[address] [address] Monocyte, Absolute 1.6 10 3/mcL High 0.1-1.4 [facility] [place] Comment on above: Performed By: #### B MP, CBC, ADIFF, ANEU, GFR, MG ####[address] [address] Monocytes/100 WBC (Bld) 15.4 % High 2.0-13.0 A [facility] ([place] Comment on above: Performed By: #### B MP, CBC, ADIFF, ANEU, GFR, MG ####[address] [address] Neutrophils/100 WBC (Bld) 66.1 % Normal 50.0-75.0 [facility] [place] Comment on above: Performed By: #### B MP, CBC, ADIFF, ANEU, GFR, MG ####[address] [address] .GFRon 05-12-2024 GFR Non- 23 ml/min/1.73sqm Normal [facility] [place] Comment on above: Result Comment: GFR Population [...] B MP, CBC, ADIFF, ANEU, GFR, MG ####[address] [address] GFR 28 ml/min/1.73sqm Normal [facility] [place] Comment on above: Result Comment: GFR Population [...] B MP, CBC, ADIFF, ANEU, GFR, MG ####[address] [address] .NEUABSon 05-12-2024 Neutrophil, Absolute 6.7 10 3/mcL Normal 2.3-8.1 [facility] [place] Comment on above: Performed By: #### B MP, CBC, ADIFF, ANEU, GFR, MG ####[address] [address] BMPon 05-12-2024 BUN/Creatinine Ratio 19.0 ratio Normal 10.0-22.0 [facility] [place] Comment on above: Performed By: #### B MP, CBC, ADIFF, ANEU, GFR, MG ####[place] [address] Calcium [Mass/Vol] 7.8 mg/dL Low 8.7-10.4 [facility] ([place] Comment on above: Performed By: #### B MP, CBC, ADIFF, ANEU, GFR, MG ####[address] [address] Chloride [Moles/Vol] 101 mmol/L Normal 98-110 [facility] [place] Comment on above: Performed By: #### B MP, CBC, ADIFF, ANEU, GFR, MG ####[address] [address] CO2 [Moles/Vol] 22 mmol/L Normal 22-32 [facility] [place] Comment on above: Performed By: #### B MP, CBC, ADIFF, ANEU, GFR, MG ####[place] [address] Creatinine [Mass/Vol] 2.90 mg/dL High 0.60-1.40 [facility] [place] Comment on above: Performed By: #### B MP, CBC, ADIFF, ANEU, GFR, MG ####[place] [address] Electrolyte Balance 8.0 mEq/L Normal 4.0-15.0 [facility] [place] Comment on above: Performed By: #### B MP, CBC, ADIFF, ANEU, GFR, MG ####[place] [address] Glucose [Mass/Vol] 197 mg/dL High 70-110 [facility] ([place] Comment on above: Performed By: #### B MP, CBC, ADIFF, ANEU, GFR, MG ####[place] [address] Potassium [Moles/Vol] 5.2 mmol/L High 3.5-5.0 [facility] [place] Comment on above: Performed By: #### B MP, CBC, ADIFF, ANEU, GFR, MG ####[place] [address] Sodium [Moles/Vol] 131 mmol/L Low 136-145 [facility] ([place] Comment on above: Performed By: #### B MP, CBC, ADIFF, ANEU, GFR, MG ####[place] [address] Urea nitrogen [Mass/Vol] 55.0 mg/dL High 8.0-22.0 [facility] [place] Comment on above: Performed By: #### B MP, CBC, ADIFF, ANEU, GFR, MG ####[place] [address] CBCon 05-12-2024 Erythrocyte distribution width (RBC) [Ratio] 20.1 % High 11.5-15.5 [facility] [place] Comment on above: Performed By: #### B MP, CBC, ADIFF, ANEU, GFR, MG ####[place] [address] Hematocrit (Bld) [Volume fraction] 25.9 % Low 40.0-52.0 [facility] [place] Comment on above: Performed By: #### B MP, CBC, ADIFF, ANEU, GFR, MG ####[place] [address] Hgb 8.8 G/dL Low 13.0-17.5 [facility] [place] Comment on above: Performed By: #### B MP, CBC, ADIFF, ANEU, GFR, MG ####[place] [address] MCH (RBC) [Entitic mass] 27.9 pg Normal 27.0-33.0 [facility] [place] Comment on above: Performed By: #### B MP, CBC, ADIFF, ANEU, GFR, MG ####[place] [address] MCHC 33.9 G/dL Normal 32.0-36.0 [facility] [place] Comment on above: Performed By: #### B MP, CBC, ADIFF, ANEU, GFR, MG ####[place] [address] MCV (RBC) [Entitic vol] 82.4 fL Normal 81.0-100.0 A [facility] ([place] Comment on above: Performed By: #### B MP, CBC, ADIFF, ANEU, GFR, MG ####[place] [address] Platelet 117 10 3/mcL Low 150-450 [facility] [place] Comment on above: Performed By: #### B MP, CBC, ADIFF, ANEU, GFR, MG ####[place] [address] Platelet mean volume (Bld) [Entitic vol] 7.9 fL Normal 6.4-10.5 [facility] [place] Comment on above: Performed By: #### B MP, CBC, ADIFF, ANEU, GFR, MG ####[place] [address] RBC 3.14 10 6/mcL Low 4.50-6.00 [facility] [place] Comment on above: Performed By: #### B MP, CBC, ADIFF, ANEU, GFR, MG ####[address] [address] WBC 10.1 10 3/mcL Normal 4.5-10.8 [facility] [place] Comment on above: Performed By: #### B MP, CBC, ADIFF, ANEU, GFR, MG ####[address] [address] Rainer 05-12-2024 Potassium [Moles/Vol] 5.2 mmol/L High 3.5-5.0 [facility] [place] Comment on above: Performed By: #### K ####[place] [address] MGon 05-12-2024 Magnesium [Mass/Vol] 2.1 mg/dL Normal 1.6-2.4 [facility] [place] Comment on above: Performed By: #### B MP, CBC, ADIFF, ANEU, GFR, MG ####[address] [address] .Auto Diffon 05-11-2024 Basophil, Absolute 0.1 10 3/mcL Normal 0.0-0.3 [facility] [place] Comment on above: Performed By: #### A DIFF, MG, ANEU, BMP, CBC, GFR ####[address] [address] Basophils/100 WBC (Bld) 0.6 % Normal 0.0-2.5 A [facility] ([place] Comment on above: Performed By: #### A DIFF, MG, ANEU, BMP, CBC, GFR ####[address] [address] Eosinophil, Absolute 0.1 10 3/mcL Normal 0.0-0.7 [facility] [place] Comment on above: Performed By: #### A DIFF, MG, ANEU, BMP, CBC, GFR ####[address] [address] Eosinophils/100 WBC (Bld) 1.2 % Normal 0.0-6.0 [facility] [place] Comment on above: Performed By: #### A DIFF, MG, ANEU, BMP, CBC, GFR ####[address] [address] Lymphocyte, Absolute 1.8 10 3/mcL Normal 0.9-4.3 [facility] ([place] Comment on above: Performed By: #### A DIFF, MG, ANEU, BMP, CBC, GFR ####[address] [address] Lymphocytes/100 WBC (Bld) 18.3 % Low 20.0-40.0 [facility] [place] Comment on above: Performed By: #### A DIFF, MG, ANEU, BMP, CBC, GFR ####[address] [address] Monocyte, Absolute 1.6 10 3/mcL High 0.1-1.4 [facility] ([place]) Comment on above: Performed By: #### A DIFF, MG, ANEU, BMP, CBC, GFR ####[address] [address] Monocytes/100 WBC (Bld) 16.3 % High 2.0-13.0 [facility] ([place]) Comment on above: Performed By: #### A DIFF, MG, ANEU, BMP, CBC, GFR ####[address] [address] Neutrophils/100 WBC (Bld) 63.6 % Normal 50.0-75.0 [facility] ([place] Comment on above: Performed By: #### A DIFF, MG, ANEU, BMP, CBC, GFR ####[address] [address] .GFRon 05-11-2024 GFR 35 ml/min/1.73sqm [facility] ([place] Comment on above: Result Comment: GFR Population [...] A DIFF, MG, ANEU, BMP, CBC, GFR ####[address] [address] GFR Non- 29 ml/min/1.73sqm [facility] ([place] Comment on above: Result Comment: GFR Population [...] A DIFF, MG, ANEU, BMP, CBC, GFR ####[address] [address] .NEUABSon 05-11-2024 Neutrophil, Absolute 6.2 10 3/mcL Normal 2.3-8.1 [facility] ([place]) Comment on above: Performed By: #### A DIFF, MG, ANEU, BMP, CBC, GFR ####[address] [address] BMPon 05-11-2024 BUN/Creatinine Ratio 19.8 ratio Normal 10.0-22.0 [facility] ([place] Comment on above: Performed By: #### A DIFF, MG, ANEU, BMP, CBC, GFR ####[address] [address] Calcium [Mass/Vol] 7.7 mg/dL Low 8.7-10.4 [facility] ([place]) Comment on above: Performed By: #### A DIFF, MG, ANEU, BMP, CBC, GFR ####[address] [address] Chloride [Moles/Vol] 102 mmol/L Normal 98-110 [facility] ([place] Comment on above: Performed By: #### A DIFF, MG, ANEU, BMP, CBC, GFR ####[address] [address] CO2 [Moles/Vol] 22 mmol/L Normal 22-32 [facility] ([place] Comment on above: Performed By: #### A DIFF, MG, ANEU, BMP, CBC, GFR ####[address] [address] Creatinine [Mass/Vol] 2.42 mg/dL High 0.60-1.40 [facility] ([place]) Comment on above: Performed By: #### A DIFF, MG, ANEU, BMP, CBC, GFR ####[place] [address] Electrolyte Balance 9.0 mEq/L Normal 4.0-15.0 [facility] ([place] Comment on above: Performed By: #### A DIFF, MG, ANEU, BMP, CBC, GFR ####[address] [address] Glucose [Mass/Vol] 167 mg/dL High 70-110 [facility] ([place]) Comment on above: Performed By: #### A DIFF, MG, ANEU, BMP, CBC, GFR ####[address] [address] Potassium [Moles/Vol] 4.8 mmol/L Normal 3.5-5.0 [facility] ([place] Comment on above: Performed By: #### A DIFF, MG, ANEU, BMP, CBC, GFR ####[address] [address] Sodium [Moles/Vol] 133 mmol/L Low 136-145 [facility] ([place]) Comment on above: Performed By: #### A DIFF, MG, ANEU, BMP, CBC, GFR ####[place] [address] Urea nitrogen [Mass/Vol] 48.0 mg/dL High 8.0-22.0 [facility] ([place] Comment on above: Performed By: #### A DIFF, MG, ANEU, BMP, CBC, GFR ####[place] [address] CBCon 05-11-2024 Erythrocyte distribution width (RBC) [Ratio] 19.4 % High 11.5-15.5 [facility] [place] Comment on above: Performed By: #### A DIFF, MG, ANEU, BMP, CBC, GFR ####[place] [address] Hematocrit (Bld) [Volume fraction] 27.3 % Low 40.0-52.0 [facility] ([place] Comment on above: Performed By: #### A DIFF, MG, ANEU, BMP, CBC, GFR ####[place] [address] Hgb 9.3 G/dL Low 13.0-17.5 [facility] ([place] Comment on above: Performed By: #### A DIFF, MG, ANEU, BMP, CBC, GFR ####[place] [address] MCH (RBC) [Entitic mass] 28.1 pg Normal 27.0-33.0 [facility] ([place] Comment on above: Performed By: #### A DIFF, MG, ANEU, BMP, CBC, GFR ####[place] [address] MCHC 33.9 G/dL Normal 32.0-36.0 [facility] ([place] Comment on above: Performed By: #### A DIFF, MG, ANEU, BMP, CBC, GFR ####[place] [address] MCV (RBC) [Entitic vol] 83.0 fL Normal 81.0-100.0 [facility] ([place] Comment on above: Performed By: #### A DIFF, MG, ANEU, BMP, CBC, GFR ####[place] [address] Platelet 123 10 3/mcL Low 150-450 [facility] ([place] Comment on above: Performed By: #### A DIFF, MG, ANEU, BMP, CBC, GFR ####[place] [address] Platelet mean volume (Bld) [Entitic vol] 7.8 fL Normal 6.4-10.5 [facility] ([place] Comment on above: Performed By: #### A DIFF, MG, ANEU, BMP, CBC, GFR ####[place] [address] RBC 3.29 10 6/mcL Low 4.50-6.00 [facility] ([place] Comment on above: Performed By: #### A DIFF, MG, ANEU, BMP, CBC, GFR ####[place] [address] WBC 9.8 10 3/mcL Normal 4.5-10.8 [facility] [place] Comment on above: Performed By: #### A DIFF, MG, ANEU, BMP, CBC, GFR ####[place] [address] MGon 05-11-2024 Magnesium [Mass/Vol] 1.5 mg/dL Low 1.6-2.4 [facility] ([place] Comment on above: Performed By: #### A DIFF, MG, ANEU, BMP, CBC, GFR ####[place] [address] .Auto Diffon 05-10-2024 Basophil, Absolute 0.1 10 3/mcL Normal 0.0-0.3 [facility] [place] Comment on above: Performed By: #### B MP, ADIFF, MG, CBC, ANEU, GFR ####[place] [address] Basophils/100 WBC (Bld) 1.0 % Normal 0.0-2.5 [facility] ([place] Comment on above: Performed By: #### B MP, ADIFF, MG, CBC, ANEU, GFR ####[address] [address] Eosinophil, Absolute 0.2 10 3/mcL Normal 0.0-0.7 [facility] ([place] Comment on above: Performed By: #### B MP, ADIFF, MG, CBC, ANEU, GFR ####[address] [address] Eosinophils/100 WBC (Bld) 1.9 % Normal 0.0-6.0 [facility] [place] Comment on above: Performed By: #### B MP, ADIFF, MG, CBC, ANEU, GFR ####[address] [address] Lymphocyte, Absolute 1.8 10 3/mcL Normal 0.9-4.3 [facility] ([place] Comment on above: Performed By: #### B MP, ADIFF, MG, CBC, ANEU, GFR ####[address] [address] Lymphocytes/100 WBC (Bld) 20.7 % Normal 20.0-40.0 [facility] [place] Comment on above: Performed By: #### B MP, ADIFF, MG, CBC, ANEU, GFR ####[address] [address] Monocyte, Absolute 1.0 10 3/mcL Normal 0.1-1.4 [facility] ([place] Comment on above: Performed By: #### B MP, ADIFF, MG, CBC, ANEU, GFR ####[address] [address] Monocytes/100 WBC (Bld) 11.8 % Normal 2.0-13.0 [facility] ([place]) Comment on above: Performed By: #### B MP, ADIFF, MG, CBC, ANEU, GFR ####[address] [address] Neutrophils/100 WBC (Bld) 64.6 % Normal 50.0-75.0 [facility] [place] Comment on above: Performed By: #### B MP, ADIFF, MG, CBC, ANEU, GFR ####[address] [address] .GFRon 05-10-2024 GFR Non- 35 ml/min/1.73sqm [facility] ([place] Comment on above: Result Comment: GFR Population [...] B MP, ADIFF, MG, CBC, ANEU, GFR ####[address] [address] GFR 42 ml/min/1.73sqm [facility] ([place] Comment on above: Result Comment: GFR Population [...] B MP, ADIFF, MG, CBC, ANEU, GFR ####[address] [address] .NEUABSon 05-10-2024 Neutrophil, Absolute 5.5 10 3/mcL Normal 2.3-8.1 [facility] ([place] Comment on above: Performed By: #### B MP, ADIFF, MG, CBC, ANEU, GFR ####[address] [address] APTTon 05-10-2024 aPTT Coag (Bld) [Time] 57.1 s High 25.0-35.0 [facility] [place] Comment on above: Result Comment: For Heparin anticoagulation therapy, the recommendedtherapeutic range is: 54-77 seconds (APTT Correlationwith Anti-Xa therapeutic range of 0.3-0.7 units/ml).PLEASE REFERENCE THE PHARMACY PROTOCOL FOR DOSING. Heparin dose (APTT) Heparin IV Normal [facility] ([place]) aPTT Coag (Bld) [Time] 38.9 s High 25.0-35.0 [facility] ([place] Comment on above: Result Comment: For Heparin anticoagulation therapy, the recommendedtherapeutic range is: 54-77 seconds (APTT Correlationwith Anti-Xa therapeutic range of 0.3-0.7 units/ml).PLEASE REFERENCE THE PHARMACY PROTOCOL FOR DOSING. Heparin dose (APTT) Heparin IV Normal [facility] ([place]) BMPon 05-10-2024 BUN/Creatinine Ratio 19.8 ratio Normal 10.0-22.0 [facility] ([place] Comment on above: Performed By: #### B MP, ADIFF, MG, CBC, ANEU, GFR ####[address] [address] Calcium [Mass/Vol] 8.4 mg/dL Low 8.7-10.4 [facility] ([place]) Comment on above: Performed By: #### B MP, ADIFF, MG, CBC, ANEU, GFR ####[address] [address] Chloride [Moles/Vol] 104 mmol/L Normal 98-110 [facility] ([place] Comment on above: Performed By: #### B MP, ADIFF, MG, CBC, ANEU, GFR ####[address] [address] CO2 [Moles/Vol] 20 mmol/L Low 22-32 [facility] ([place] Comment on above: Performed By: #### B MP, ADIFF, MG, CBC, ANEU, GFR ####[place] [address] Creatinine [Mass/Vol] 2.07 mg/dL High 0.60-1.40 [facility] ([place] Comment on above: Performed By: #### B MP, ADIFF, MG, CBC, ANEU, GFR ####[place] [address] Electrolyte Balance 14.0 mEq/L Normal 4.0-15.0 [facility] ([place] Comment on above: Performed By: #### B MP, ADIFF, MG, CBC, ANEU, GFR ####[place] [address] Glucose [Mass/Vol] 106 mg/dL Normal 70-110 [facility] ([place] Comment on above: Performed By: #### B MP, ADIFF, MG, CBC, ANEU, GFR ####[place] [address] Potassium [Moles/Vol] 4.2 mmol/L Normal 3.5-5.0 [facility] ([place] Comment on above: Performed By: #### B MP, ADIFF, MG, CBC, ANEU, GFR ####[place] [address] Sodium [Moles/Vol] 138 mmol/L Normal 136-145 [facility] ([place] Comment on above: Performed By: #### B MP, ADIFF, MG, CBC, ANEU, GFR ####[place] [address] Urea nitrogen [Mass/Vol] 41.0 mg/dL High 8.0-22.0 [facility] ([place] Comment on above: Performed By: #### B MP, ADIFF, MG, CBC, ANEU, GFR ####[place] [address] CBCon 05-10-2024 Erythrocyte distribution width (RBC) [Ratio] 19.4 % High 11.5-15.5 [facility] [place] Comment on above: Performed By: #### B MP, ADIFF, MG, CBC, ANEU, GFR ####[place] [address] Hematocrit (Bld) [Volume fraction] 28.8 % Low 40.0-52.0 [facility] ([place] Comment on above: Performed By: #### B MP, ADIFF, MG, CBC, ANEU, GFR ####[place] [address] Hgb 9.4 G/dL Low 13.0-17.5 [facility] ([place] Comment on above: Performed By: #### B MP, ADIFF, MG, CBC, ANEU, GFR ####[place] [address] MCH (RBC) [Entitic mass] 27.1 pg Normal 27.0-33.0 [facility] ([place] Comment on above: Performed By: #### B MP, ADIFF, MG, CBC, ANEU, GFR ####[place] [address] MCHC 32.7 G/dL Normal 32.0-36.0 [facility] ([place] Comment on above: Performed By: #### B MP, ADIFF, MG, CBC, ANEU, GFR ####[place] [address] MCV (RBC) [Entitic vol] 82.8 fL Normal 81.0-100.0 A [facility] ([place] Comment on above: Performed By: #### B MP, ADIFF, MG, CBC, ANEU, GFR ####[place] [address] Platelet 147 10 3/mcL Low 150-450 [facility] ([place] Comment on above: Performed By: #### B MP, ADIFF, MG, CBC, ANEU, GFR ####[place] [address] Platelet mean volume (Bld) [Entitic vol] 7.8 fL Normal 6.4-10.5 [facility] ([place] Comment on above: Performed By: #### B MP, ADIFF, MG, CBC, ANEU, GFR ####[place] [address] RBC 3.48 10 6/mcL Low 4.50-6.00 [facility] ([place] Comment on above: Performed By: #### B MP, ADIFF, MG, CBC, ANEU, GFR ####[address] [address] WBC 8.5 10 3/mcL Normal 4.5-10.8 [facility] ([place] Comment on above: Performed By: #### B MP, ADIFF, MG, CBC, ANEU, GFR ####[address] [address] CWDPon 05-10-2024 CWDP Normal [facility] ([place] CWDP Normal [facility] ([place]) LABORATORYOrdered By: Ryan Navarro on 05-10-2024 aPTT [...] 05-10-2024 Magnesium [Mass/Vol] 1.9 mg/dL Normal 1.6-2.4 [facility] ([place] Comment on above: Performed By: #### B MP, ADIFF, MG, CBC, ANEU, GFR ####[address] [address] .Auto Diffon 05-09-2024 Basophil, Absolute 0.1 10 3/mcL Normal 0.0-0.3 [facility] ([place] Comment on above: Performed By: #### G FR, A1C, CBC, ADIFF, ANEU, BMP, MG, LIPID ####[address] [address] Basophils/100 WBC (Bld) 0.7 % Normal 0.0-2.5 [facility] ([place] Comment on above: Performed By: #### G FR, A1C, CBC, ADIFF, ANEU, BMP, MG, LIPID ####[address] [address] Eosinophil, Absolute 0.1 10 3/mcL Normal 0.0-0.7 [facility] ([place] Comment on above: Performed By: #### G FR, A1C, CBC, ADIFF, ANEU, BMP, MG, LIPID ####[address] [address] Eosinophils/100 WBC (Bld) 1.4 % Normal 0.0-6.0 [facility] [place] Comment on above: Performed By: #### G FR, A1C, CBC, ADIFF, ANEU, BMP, MG, LIPID ####[address] [address] Lymphocyte, Absolute 1.5 10 3/mcL Normal 0.9-4.3 [facility] ([place] Comment on above: Performed By: #### G FR, A1C, CBC, ADIFF, ANEU, BMP, MG, LIPID ####[address] [address] Lymphocytes/100 WBC (Bld) 18.2 % Low 20.0-40.0 [facility] [place] Comment on above: Performed By: #### G FR, A1C, CBC, ADIFF, ANEU, BMP, MG, LIPID ####[address] [address] Monocyte, Absolute 0.7 10 3/mcL Normal 0.1-1.4 [facility] ([place] Comment on above: Performed By: #### G FR, A1C, CBC, ADIFF, ANEU, BMP, MG, LIPID ####[place] [address] Monocytes/100 WBC (Bld) 8.9 % Normal 2.0-13.0 [facility] ([place]) Comment on above: Performed By: #### G FR, A1C, CBC, ADIFF, ANEU, BMP, MG, LIPID ####[address] [address] Neutrophils/100 WBC (Bld) 70.8 % Normal 50.0-75.0 [facility] ([place]) Comment on above: Performed By: #### G FR, A1C, CBC, ADIFF, ANEU, BMP, MG, LIPID ####[address] [address] .GFRon 05-09-2024 GFR Non- 37 ml/min/1.73sqm [facility] ([place]) Comment on above: Result Comment: [...] A1C, CBC, ADIFF, ANEU, BMP, MG, LIPID ####[address] [address] GFR 45 ml/min/1.73sqm [facility] ([place]) Comment on above: Result Comment: [...] A1C, CBC, ADIFF, ANEU, BMP, MG, LIPID ####[address] [address] .NEUABSon 05-09-2024 Neutrophil, Absolute 5.8 10 3/mcL Normal 2.3-8.1 [facility] ([place] Comment on above: Performed By: #### G FR, A1C, CBC, ADIFF, ANEU, BMP, MG, LIPID ####[place] [address] A1Con 05-09-2024 HbA1c (Bld) [Mass fraction] 9.1 % High 4.0-6.0 [facility] [place] Comment on above: Performed By: #### G FR, A1C, CBC, ADIFF, ANEU, BMP, MG, LIPID ####[place] [address] APTTon 05-09-2024 aPTT Coag (Bld) [Time] 52.3 s High 25.0-35.0 [facility] [place] Comment on above: Result Comment: For Heparin anticoagulation therapy, the recommendedtherapeutic range is: 54-77 seconds (APTT Correlationwith Anti-Xa therapeutic range of 0.3-0.7 units/ml).PLEASE REFERENCE THE PHARMACY PROTOCOL FOR DOSING. Heparin dose (APTT) Heparin IV Normal [facility] [place] aPTT Coag (Bld) [Time] 47.8 s High 25.0-35.0 [facility] [place] Comment on above: Result Comment: For Heparin anticoagulation therapy, the recommendedtherapeutic range is: 54-77 seconds (APTT Correlationwith Anti-Xa therapeutic range of 0.3-0.7 units/ml).PLEASE REFERENCE THE PHARMACY PROTOCOL FOR DOSING. Heparin dose (APTT) Unknown Normal [facility] [place] aPTT Coag (Bld) [Time] 37.5 s High 25.0-35.0 [facility] [place] Comment on above: Result Comment: Spec imen hemolyzed. Results may be affected.For Heparin anticoagulation therapy, the recommendedtherapeutic range is: 54-77 seconds (APTT Correlationwith Anti-Xa therapeutic range of 0.3-0.7 units/ml).PLEASE REFERENCE THE PHARMACY PROTOCOL FOR DOSING. Heparin dose (APTT) Heparin IV Normal [facility] [place] aPTT Coag (Bld) [Time] 42.2 s High 25.0-35.0 [facility] [place] Comment on above: Result Comment: For Heparin anticoagulation therapy, the recommendedtherapeutic range is: 54-77 seconds (APTT Correlationwith Anti-Xa therapeutic range of 0.3-0.7 units/ml).PLEASE REFERENCE THE PHARMACY PROTOCOL FOR DOSING. Heparin dose (APTT) Heparin IV Normal [facility] ([place] BMPon 05-09-2024 BUN/Creatinine Ratio 22.6 ratio High 10.0-22.0 [facility] [place] Comment on above: Performed By: #### G FR, A1C, CBC, ADIFF, ANEU, BMP, MG, LIPID ####[address] [address] Calcium [Mass/Vol] 8.5 mg/dL Low 8.7-10.4 [facility] ([place] Comment on above: Performed By: #### G FR, A1C, CBC, ADIFF, ANEU, BMP, MG, LIPID ####[address] [address] Chloride [Moles/Vol] 105 mmol/L Normal 98-110 [facility] ([place] Comment on above: Performed By: #### G FR, A1C, CBC, ADIFF, ANEU, BMP, MG, LIPID ####[address] [address] CO2 [Moles/Vol] 26 mmol/L Normal 22-32 [facility] ([place] Comment on above: Performed By: #### G FR, A1C, CBC, ADIFF, ANEU, BMP, MG, LIPID ####[address] [address] Creatinine [Mass/Vol] 1.95 mg/dL High 0.60-1.40 [facility] ([place] Comment on above: Performed By: #### G FR, A1C, CBC, ADIFF, ANEU, BMP, MG, LIPID ####[address] [address] Electrolyte Balance 9.0 mEq/L Normal 4.0-15.0 [facility] ([place] Comment on above: Performed By: #### G FR, A1C, CBC, ADIFF, ANEU, BMP, MG, LIPID ####[place] [address] Glucose [Mass/Vol] 66 mg/dL Low 70-110 [facility] ([place] Comment on above: Performed By: #### G FR, A1C, CBC, ADIFF, ANEU, BMP, MG, LIPID ####[place] [address] Potassium [Moles/Vol] 3.4 mmol/L Low 3.5-5.0 [facility] ([place] Comment on above: Performed By: #### G FR, A1C, CBC, ADIFF, ANEU, BMP, MG, LIPID ####[place] [address] Sodium [Moles/Vol] 140 mmol/L Normal 136-145 [facility] ([place] Comment on above: Performed By: #### G FR, A1C, CBC, ADIFF, ANEU, BMP, MG, LIPID ####[place] [address] Urea nitrogen [Mass/Vol] 44.0 mg/dL High 8.0-22.0 [facility] [place] Comment on above: Performed By: #### G FR, A1C, CBC, ADIFF, ANEU, BMP, MG, LIPID ####[place] [address] CBCon 05-09-2024 Erythrocyte distribution width (RBC) [Ratio] 19.5 % High 11.5-15.5 [facility] [place] Comment on above: Performed By: #### G FR, A1C, CBC, ADIFF, ANEU, BMP, MG, LIPID ####[place] [address] Hematocrit (Bld) [Volume fraction] 29.4 % Low 40.0-52.0 [facility] [place] Comment on above: Performed By: #### G FR, A1C, CBC, ADIFF, ANEU, BMP, MG, LIPID ####[place] [address] Hgb 9.7 G/dL Low 13.0-17.5 [facility] [place] Comment on above: Performed By: #### G FR, A1C, CBC, ADIFF, ANEU, BMP, MG, LIPID ####[place] [address] MCH (RBC) [Entitic mass] 27.0 pg Normal 27.0-33.0 [facility] [place] Comment on above: Performed By: #### G FR, A1C, CBC, ADIFF, ANEU, BMP, MG, LIPID ####[place] [address] MCHC 33.1 G/dL Normal 32.0-36.0 [facility] [place] Comment on above: Performed By: #### G FR, A1C, CBC, ADIFF, ANEU, BMP, MG, LIPID ####[place] [address] MCV (RBC) [Entitic vol] 81.8 fL Normal 81.0-100.0 A [facility] ([place] Comment on above: Performed By: #### G FR, A1C, CBC, ADIFF, ANEU, BMP, MG, LIPID ####[place] [address] Platelet 161 10 3/mcL Normal 150-450 [facility] [place] Comment on above: Performed By: #### G FR, A1C, CBC, ADIFF, ANEU, BMP, MG, LIPID ####[place] [address] Platelet mean volume (Bld) [Entitic vol] 7.5 fL Normal 6.4-10.5 [facility] [place] Comment on above: Performed By: #### G FR, A1C, CBC, ADIFF, ANEU, BMP, MG, LIPID ####[place] [id number] [place] [id number] RBC 3.59 10 6/mcL Low 4.50-6.00 [facility] [place] Comment on above: Performed By: #### G FR, A1C, CBC, ADIFF, ANEU, BMP, MG, LIPID ####[address] [address] WBC 8.2 10 3/mcL Normal 4.5-10.8 [facility] ([place] Comment on above: Performed By: #### G FR, A1C, CBC, ADIFF, ANEU, BMP, MG, LIPID ####[address] [address] LABORATORYOrdered By: Aleksey Barajas on 05-09-2024 aPTT [...] 05-09-2024 Cholesterol [Mass/Vol] 131 mg/dL Normal 50-199 [facility] ([place] Comment on above: Result Comment: Chol esterol Reference Interval:Less than 200 [id number] Borderline high [id number] and above High risk Performed By: #### G FR, A1C, CBC, ADIFF, ANEU, BMP, MG, LIPID ####[address] [address] Cholesterol in HDL [Mass/Vol] 31 mg/dL Low 40-59 [facility] ([place] Comment on above: Performed By: #### G FR, A1C, CBC, ADIFF, ANEU, BMP, MG, LIPID ####[address] [address] Cholesterol in LDL [Mass/Vol] 66 mg/dL Normal 0-129 [facility] ([place] Comment on above: Performed By: #### G FR, A1C, CBC, ADIFF, ANEU, BMP, MG, LIPID ####[address] [address] Triglyceride [Mass/Vol] 170 mg/dL High 3-149 [facility] ([place] Comment on above: Performed By: #### G FR, A1C, CBC, ADIFF, ANEU, BMP, MG, LIPID ####[address] [address] MGon 05-09-2024 Magnesium [Mass/Vol] 1.9 mg/dL Normal 1.6-2.4 [facility] ([place] Comment on above: Performed By: #### G FR, A1C, CBC, ADIFF, ANEU, BMP, MG, LIPID ####[address] [address] NM MYOCARDIAL SPECT STRESS/R ESTon 05-09-2024 NM MYOCARDIAL SPECT STRESS/REST [facility] ([place] .Auto Diffon 05-08-2024 Basophil, Absolute 0.0 10 3/mcL Normal 0.0-0.3 [facility]) Comment on above: Performed By: #### T ROPHS, ANEU, CMP, GFR, MG, TSH, CAION, ADIFF, CBC ####[address] [address] Basophils/100 WBC (Bld) 0.6 % Normal 0.0-2.5 [facility] ([place] Comment on above: Performed By: #### T ROPHS, ANEU, CMP, GFR, MG, TSH, CAION, ADIFF, CBC ####[address] [address] Eosinophil, Absolute 0.1 10 3/mcL Normal 0.0-0.7 [facility] ([place]) Comment on above: Performed By: #### T ROPHS, ANEU, CMP, GFR, MG, TSH, CAION, ADIFF, CBC ####[address] [address] Eosinophils/100 WBC (Bld) 0.6 % Normal 0.0-6.0 [facility] [place] Comment on above: Performed By: #### T ROPHS, ANEU, CMP, GFR, MG, TSH, CAION, ADIFF, CBC ####[address] [address] Lymphocyte, Absolute 1.0 10 3/mcL Normal 0.9-4.3 [facility] ([place] Comment on above: Performed By: #### T ROPHS, ANEU, CMP, GFR, MG, TSH, CAION, ADIFF, CBC ####[address] [address] Lymphocytes/100 WBC (Bld) 11.8 % Low 20.0-40.0 [facility] [place] Comment on above: Performed By: #### T ROPHS, ANEU, CMP, GFR, MG, TSH, CAION, ADIFF, CBC ####[address] [address] Monocyte, Absolute 0.5 10 3/mcL Normal 0.1-1.4 [facility] ([place] Comment on above: Performed By: #### T ROPHS, ANEU, CMP, GFR, MG, TSH, CAION, ADIFF, CBC ####[address] [address] Monocytes/100 WBC (Bld) 6.4 % Normal 2.0-13.0 [facility] ([place]) Comment on above: Performed By: #### T TOMHS, ANEU, CMP, GFR, MG, TSH, CAION, ADIFF, CBC ####[address] [address] Neutrophils/100 WBC (Bld) 80.6 % High 50.0-75.0 [facility] ([place]) Comment on above: Performed By: #### T TOMHS, ANEU, CMP, GFR, MG, TSH, CAION, ADIFF, CBC ####[address] [address] .GFRon 05-08-2024 GFR Non- 34 ml/min/1.73sqm [facility] ([place] Comment on above: Result Comment: GFR Population [...] CMP, GFR, MG, TSH, CAION, ADIFF, CBC ####[address] [address] GFR 42 ml/min/1.73sqm [facility] ([place]) Comment on above: Result Comment: [...] CMP, GFR, MG, TSH, CAION, ADIFF, CBC ####[place] [address] .NEUABSon 05-08-2024 Neutrophil, Absolute 6.5 10 3/mcL Normal 2.3-8.1 [facility] [place] ([place]) Comment on above: Performed By: #### T TOMHS, ANEU, CMP, GFR, MG, TSH, CAION, ADIFF, CBC ####[place] [address] APTTon 05-08-2024 aPTT Coag (Bld) [Time] 36.3 s High 25.0-35.0 [facility] ([place]) Comment on above: Result Comment: For Heparin anticoagulation therapy, the recommendedtherapeutic range is: 54-77 seconds (APTT Correlationwith Anti-Xa therapeutic range of 0.3-0.7 units/ml).PLEASE REFERENCE THE PHARMACY PROTOCOL FOR DOSING. Performed By: #### P RO ####[place] [address] Heparin dose (APTT) Heparin IV Normal [facility] ([place]) Comment on above: Performed By: #### P RO ####[place] [address] CAIONon 05-08-2024 Calcium Ionized 1.17 mmol/L Normal 1.12-1.32 [facility] ([place]) Comment on above: Performed By: #### T TOMHS, ANEU, CMP, GFR, MG, TSH, CAION, ADIFF, CBC ####[place] [address] CBCon 05-08-2024 Erythrocyte distribution width (RBC) [Ratio] 19.4 % High 11.5-15.5 [facility] ([place] Comment on above: Performed By: #### T TOMHS, ANEU, CMP, GFR, MG, TSH, CAION, ADIFF, CBC ####[place] [address] Hematocrit (Bld) [Volume fraction] 30.8 % Low 40.0-52.0 [facility] ([place] Comment on above: Performed By: #### T ROPHS, ANEU, CMP, GFR, MG, TSH, CAION, ADIFF, CBC ####[place] [address] Hgb 10.3 G/dL Low 13.0-17.5 [facility] ([place] Comment on above: Performed By: #### T ROPHS, ANEU, CMP, GFR, MG, TSH, CAION, ADIFF, CBC ####[place] [address] MCH (RBC) [Entitic mass] 27.6 pg Normal 27.0-33.0 [facility] ([place] Comment on above: Performed By: #### T ROPHS, ANEU, CMP, GFR, MG, TSH, CAION, ADIFF, CBC ####[place] [address] MCHC 33.6 G/dL Normal 32.0-36.0 [facility] ([place] Comment on above: Performed By: #### T ROPHS, ANEU, CMP, GFR, MG, TSH, CAION, ADIFF, CBC ####[place] [address] MCV (RBC) [Entitic vol] 82.1 fL Normal 81.0-100.0 A [facility] ([place]) Comment on above: Performed By: #### T ROPHS, ANEU, CMP, GFR, MG, TSH, CAION, ADIFF, CBC ####[place] [address] Platelet 198 10 3/mcL Normal 150-450 [facility] ([place] Comment on above: Performed By: #### T ROPHS, ANEU, CMP, GFR, MG, TSH, CAION, ADIFF, CBC ####[place] [address] Platelet mean volume (Bld) [Entitic vol] 7.6 fL Normal 6.4-10.5 [facility] ([place] Comment on above: Performed By: #### T ROPHS, ANEU, CMP, GFR, MG, TSH, CAION, ADIFF, CBC ####[address] [address] RBC 3.75 10 6/mcL Low 4.50-6.00 [facility] ([place] Comment on above: Performed By: #### T ROPHS, ANEU, CMP, GFR, MG, TSH, CAION, ADIFF, CBC ####[place] [address] WBC 8.1 10 3/mcL Normal 4.5-10.8 [facility] ([place] Comment on above: Performed By: #### T ROPHS, ANEU, CMP, GFR, MG, TSH, CAION, ADIFF, CBC ####[place] [address] CMPon 05-08-2024 Albumin Level 1.5 G/dL Low 3.2-4.8 [facility] ([place] Comment on above: Performed By: #### T ROPHS, ANEU, CMP, GFR, MG, TSH, CAION, ADIFF, CBC ####[place] [address] Albumin/Globulin [Mass ratio] 0.3 {ratio} Low 0.9-1.6 [facility] ([place] Comment on above: Performed By: #### T ROPHS, ANEU, CMP, GFR, MG, TSH, CAION, ADIFF, CBC ####[address] [address] ALP [Catalytic activity/Vol] 476 U/L High 38-126 [facility] ([place] Comment on above: Performed By: #### T ROPHS, ANEU, CMP, GFR, MG, TSH, CAION, ADIFF, CBC ####[address] [address] ALT [Catalytic activity/Vol] 14 U/L Normal 12-55 [facility] ([place] Comment on above: Performed By: #### T ROPHS, ANEU, CMP, GFR, MG, TSH, CAION, ADIFF, CBC ####[address] [address] AST [Catalytic activity/Vol] 15 U/L Normal 8-34 [facility] ([place] Comment on above: Performed By: #### T ROPHS, ANEU, CMP, GFR, MG, TSH, CAION, ADIFF, CBC ####[address] [address] Bili Total 0.40 mg/dL Normal 0.20-1.20 [facility] ([place] Comment on above: Result Comment: Use of this assay is not recommended for patients undergoing treatment with eltrombopag due to the potential for falsely elevated results. Performed By: #### T ROPHS, ANEU, CMP, GFR, MG, TSH, CAION, ADIFF, CBC ####[place] [address] BUN/Creatinine Ratio 25.0 ratio High 10.0-22.0 [facility] ([place]) Comment on above: Performed By: #### T ROPHS, ANEU, CMP, GFR, MG, TSH, CAION, ADIFF, CBC ####[address] [address] Calcium [Mass/Vol] 8.3 mg/dL Low 8.7-10.4 [facility] ([place]) Comment on above: Performed By: #### T ROPHS, ANEU, CMP, GFR, MG, TSH, CAION, ADIFF, CBC ####[address] [address] Chloride [Moles/Vol] 105 mmol/L Normal 98-110 [facility] ([place] Comment on above: Performed By: #### T ROPHS, ANEU, CMP, GFR, MG, TSH, CAION, ADIFF, CBC ####[address] [address] CO2 [Moles/Vol] 24 mmol/L Normal 22-32 [facility] ([place] Comment on above: Performed By: #### T ROPHS, ANEU, CMP, GFR, MG, TSH, CAION, ADIFF, CBC ####[address] [address] Creatinine [Mass/Vol] 2.08 mg/dL High 0.60-1.40 [facility] ([place]) Comment on above: Performed By: #### T ROPHS, ANEU, CMP, GFR, MG, TSH, CAION, ADIFF, CBC ####[address] [address] Electrolyte Balance 11.0 mEq/L Normal 4.0-15.0 [facility] ([place]) Comment on above: Performed By: #### T ROPHS, ANEU, CMP, GFR, MG, TSH, CAION, ADIFF, CBC ####[place] [id number] [place] [address] Globulin 5.5 G/dL High 1.5-3.8 [facility] ([place] Comment on above: Performed By: #### T ROPHS, ANEU, CMP, GFR, MG, TSH, CAION, ADIFF, CBC ####[address] [address] Glucose [Mass/Vol] 181 mg/dL High 70-110 [facility] ([place]) Comment on above: Performed By: #### T ROPHS, ANEU, CMP, GFR, MG, TSH, CAION, ADIFF, CBC ####[address] [address] Potassium [Moles/Vol] 3.5 mmol/L Normal 3.5-5.0 [facility] ([place]) Comment on above: Performed By: #### T ROPHS, ANEU, CMP, GFR, MG, TSH, CAION, ADIFF, CBC ####[address] [address] Sodium [Moles/Vol] 140 mmol/L Normal 136-145 [facility] ([place]) Comment on above: Performed By: #### T ROPHS, ANEU, CMP, GFR, MG, TSH, CAION, ADIFF, CBC ####[address] [address] Total Protein 7.0 G/dL Normal 5.7-8.2 [facility] ([place]) Comment on above: Result Comment: No te - New Reference Range in effect 20 Performed By: #### T ROPHS, ANEU, CMP, GFR, MG, TSH, CAION, ADIFF, CBC ####[facility] [place] [address] Urea nitrogen [Mass/Vol] 52.0 mg/dL High 8.0-22.0 [facility] ([place]) Comment on above: Performed By: #### T ROPHS, ANEU, CMP, GFR, MG, TSH, CAION, ADIFF, CBC ####[facility] [place] [address] LABORATORYOrdered By: Samra Cortes on 05-08-2024 PT Coag (PPP) [Time] 17.6 s High 9.0 - 1 4.4 seconds [facility] Comment on above: Interpretive Data: E ffective 06/02/08, Protime results may be affected by some antibiotics (i.e. Ciprofloxacin, Azithromycin, Bactrim) which may potentiate the action of oral anticoagulants, with further increases in Protime/INR. PT International Ratio 1.5 ratio Invalid Interpretation Code [facility] Comment on above: Interpretive Data: Alexis briones [employer] (CHEST, 1991, 102:[id number]) recommended therapeutic range for oral anticoagulant therapy is: LOW RISK: Prophylaxis of venous thrombosis INR: 2.0-3.0 Treatment of pulmonary embolism 2.0-3.0 Prevention of systemic embolism 2.0-3.0 HIGH RISK: Mechanical prosthetic valves 2.5-3.5 LABORATORYOrdered By: SYSTEM SYSTEM on 05-08-2024 Troponin I.cardiac DL <= 0.01 ng/mL [Mass/Vol] 15 ng/L Normal 0 - 54 ng/L [facility] Comment on above: Interpretive Data: High Sensitive Troponin I Reference Ranges: Female: 0-34 ng/L Male: 0-54 ng/L Testing performed on [employer] IM analyzer using direct chemiluminescent technology. Troponin I.cardiac DL <= 0.01 ng/mL [Mass/Vol] 14 ng/L Normal 0 - 54 ng/L [facility] Comment on above: Interpretive Data: High [...] 05-08-2024 Magnesium [Mass/Vol] 1.6 mg/dL Normal 1.6-2.4 [facility] ([place]) Comment on above: Performed By: #### T ROPHS, ANEU, CMP, GFR, MG, TSH, CAION, ADIFF, CBC ####[place] [address] [place] [address] PROon 05-08-2024 INR Coag (PPP) [Relative time] 1.5 {INR} Normal [facility] ([place]) Comment on above: Result Comment: [employer] (CHEST, 1991, 102:[id number])recommended therapeutic range for oral anticoagulant therapy is:LOW RISK: Prophylaxis of venous thrombosis INR: 2.0-3.0 Treatment of pulmonary embolism 2.0-3.0 Prevention of systemic embolism 2.0-3.0HIGH RISK: Mechanical prosthetic valves 2.5-3.5 Performed By: #### P RO ####[place] [address] PT Coag (PPP) [Time] 17.6 s High 9.0-14.4 [facility] ([place]) Comment on above: Result Comment: Effe ctive 06/02/08, Protime results may be affected by some antibiotics (i.e. Ciprofloxacin, Azithromycin, Bactrim) which may potentiate the action of oral anticoagulants, with further increases in Protime/INR. Performed By: #### P RO ####[place] [address] TROPHSon 05-08-2024 High Sensitivity Troponin I 15 ng/L Normal 0-54 [facility] ([place]) Comment on above: Result Comment: High Sensitive Troponin I Reference Ranges:Female: 0-34 ng/LMale: 0-54 ng/LTesting performed on [employer] IM analyzer using direct chemiluminescent technology. Performed By: #### T MALVIN ####[place] [address] High Sensitivity Troponin I 14 ng/L Normal 0-54 [facility] ([place] Comment on above: Result Comment: High Sensitive Troponin I Reference Ranges:Female: 0-34 ng/LMale: 0-54 ng/LTesting performed on [employer] IM analyzer using direct chemiluminescent technology. Performed By: #### T MALVIN ####[place] [address] High Sensitivity Troponin I 13 ng/L Normal 0-54 [facility] ([place] Comment on above: Result Comment: High Sensitive Troponin I Reference Ranges:Female: 0-34 ng/LMale: 0-54 ng/LTesting performed on [employer] IM analyzer using direct chemiluminescent technology. Performed By: #### T ROPHS, ANEU, CMP, GFR, MG, TSH, CAION, ADIFF, CBC ####[address] [address] TSHon 05-08-2024 TSH 3.822 mIU/mL Normal 0.550-4.78 0 [facility] ([place]) Comment on above: Result Comment: No te - New Reference Range in effect 20 Performed By: #### T MALVIN, ANEU, CMP, GFR, MG, TSH, CAION, ADIFF, CBC ####[place] [address] XR CHEST 2 VIEWSon XR CHEST 2 VIEWS Normal [facility] ([place]) .Auto Diffon 05-07-2024 Basophil, Absolute 0.1 10 3/mcL Normal 0.0-0.2 [facility] ([place]) Comment on above: Performed By: #### A DIFF, BMP, ANEU, MDW, GFR, CBC, TROPHS, MG ####[place] [address] [place], [place] [address] Basophils/100 WBC (Bld) 0.7 % Normal 0.0-2.5 A [facility] ([place]) Comment on above: Performed By: #### A DIFF, BMP, ANEU, MDW, GFR, CBC, TROPHS, MG ####[place] [address] [place], [place] [address] Eosinophil, Absolute 0.0 10 3/mcL Normal 0.0-0.4 [facility] ([place]) Comment on above: Performed By: #### A DIFF, BMP, ANEU, MDW, GFR, CBC, TROPHS, MG ####[place] [address] [place], [place] [address] Eosinophils/100 WBC (Bld) 0.0 % Normal 0.0-7.0 [facility] ([place]) Comment on above: Performed By: #### A DIFF, BMP, ANEU, MDW, GFR, CBC, TROPHS, MG ####[place] [address] [place], [place] [address] Lymphocyte, Absolute 0.5 10 3/mcL Low 0.8-3.9 [facility] ([place]) Comment on above: Performed By: #### A DIFF, BMP, ANEU, MDW, GFR, CBC, TROPHS, MG ####[place] [address] [place], [place] [address] Lymphocytes/100 WBC (Bld) 4.8 % Low 10.0-50.0 [facility] ([place] Comment on above: Performed By: #### A DIFF, BMP, ANEU, MDW, GFR, CBC, TROPHS, MG ####[place] [address] [place], [place] [address] Monocyte, Absolute 0.8 10 3/mcL Normal 0.2-1.0 [facility] ([place]) Comment on above: Performed By: #### A DIFF, BMP, ANEU, MDW, GFR, CBC, TROPHS, MG ####[place] [address] [place], [place] [address] Monocytes/100 WBC (Bld) 7.3 % Normal 1.7-13.0 A [facility] ([place]) Comment on above: Performed By: #### A DIFF, BMP, ANEU, MDW, GFR, CBC, TROPHS, MG ####[place] [address] [place], [place] [address] Neutrophils/100 WBC (Bld) 87.2 % High 37.0-80.0 [facility] ([place] Comment on above: Performed By: #### A DIFF, BMP, ANEU, MDW, GFR, CBC, TROPHS, MG ####[place] [address] [place], [place] [address] .GFRon 05-07-2024 GFR Non- 24 ml/min/1.73sqm Normal [facility] ([place]) Comment on above: Result Comment: GFR Population [...] MDW, GFR, CBC, TROPHS, MG ####[place] [address] [place], [place] [address] GFR 29 ml/min/1.73sqm Normal [facility] ([place]) Comment on above: Result Comment: GFR Population [...] ANEU, MDW, GFR, CBC, TROPHS, MG ####[place] [address] [place], [place] [address] .MDWon 05-07-2024 Monocyte Distribution Width 20.72 High 0.00-20.00 [facility] ([place]) Comment on above: Result Comment: For adults in ED, MDW>20.0 may be associated with a higher risk of sepsis during the first 12hrs of hospital admission Performed By: #### A DIFF, BMP, ANEU, MDW, GFR, CBC, TROPHS, MG ####[place] [address] [place], [place] [address] .NEUABSon 05-07-2024 Neutrophil, Absolute 9.7 10 3/mcL High 2.9-6.2 [facility] ([place]) Comment on above: Performed By: #### A DIFF, BMP, ANEU, MDW, GFR, CBC, TROPHS, MG ####[place] [address] [place], [place] [address] BMPon 05-07-2024 BUN/Creatinine Ratio 21 ratio Normal 7-27 [facility] ([place] Comment on above: Performed By: #### A DIFF, BMP, ANEU, MDW, GFR, CBC, TROPHS, MG ####[place] [address] [place], [place] [address] Calcium [Mass/Vol] 7.9 mg/dL Low 8.4-10.2 [facility] ([place]) Comment on above: Performed By: #### A DIFF, BMP, ANEU, MDW, GFR, CBC, TROPHS, MG ####[place] [address] [place], [place] [address] Chloride [Moles/Vol] 99 mmol/L Normal 98-107 [facility] ([place] Comment on above: Performed By: #### A DIFF, BMP, ANEU, MDW, GFR, CBC, TROPHS, MG ####[place] [address] [place], [place] [address] CO2 [Moles/Vol] 24 mmol/L Normal 22-29 [facility] ([place] Comment on above: Performed By: #### A DIFF, BMP, ANEU, MDW, GFR, CBC, TROPHS, MG ####[place] [address] [place], [place] [address] Creatinine [Mass/Vol] 2.81 mg/dL High 0.70-1.30 [facility] ([place]) Comment on above: Performed By: #### A DIFF, BMP, ANEU, MDW, GFR, CBC, TROPHS, MG ####[place] [address] [place], [place] [address] Electrolyte Balance 12.0 mEq/L Normal 4.0-15.0 [facility] ([place] Comment on above: Performed By: #### A DIFF, BMP, ANEU, MDW, GFR, CBC, TROPHS, MG ####[place] [address] [place], [place] [address] Glucose [Mass/Vol] 338 mg/dL High 70-105 [facility] ([place]) Comment on above: Performed By: #### A DIFF, BMP, ANEU, MDW, GFR, CBC, TROPHS, MG ####[place] [address] [place], [place] [address] Potassium [Moles/Vol] 4.0 mmol/L Normal 3.5-5.1 [facility] ([place] Comment on above: Performed By: #### A DIFF, BMP, ANEU, MDW, GFR, CBC, TROPHS, MG ####[place] [address] [place], [place] [address] Sodium [Moles/Vol] 135 mmol/L Low 136-145 [facility] ([place]) Comment on above: Performed By: #### A DIFF, BMP, ANEU, MDW, GFR, CBC, TROPHS, MG ####[place] [address] [place], [place] [address] Urea nitrogen [Mass/Vol] 59 mg/dL High 7-18 [facility] ([place] Comment on above: Performed By: #### A DIFF, BMP, ANEU, MDW, GFR, CBC, TROPHS, MG ####[place] [address] [place], [place] [address] CBCon 05-07-2024 Erythrocyte distribution width (RBC) [Ratio] 19.9 % High 11.5-14.5 [facility] ([place] Comment on above: Performed By: #### A DIFF, BMP, ANEU, MDW, GFR, CBC, TROPHS, MG ####[place] [address] [place], [place] [address] Hematocrit (Bld) [Volume fraction] 30.9 % Low 42.0-52.0 [facility] ([place] Comment on above: Performed By: #### A DIFF, BMP, ANEU, MDW, GFR, CBC, TROPHS, MG ####[place] [address] [place], [place] [address] Hgb 9.8 G/dL Low 14.0-18.0 [facility] ([place] Comment on above: Performed By: #### A DIFF, BMP, ANEU, MDW, GFR, CBC, TROPHS, MG ####[place] [address] [place], [place] [address] MCH (RBC) [Entitic mass] 26.6 pg Low 27.0-31.2 [facility] ([place] Comment on above: Performed By: #### A DIFF, BMP, ANEU, MDW, GFR, CBC, TROPHS, MG ####[place] [address] [place], [place] [address] MCHC 31.8 G/dL Normal 31.8-35.4 [facility] ([place] Comment on above: Performed By: #### A DIFF, BMP, ANEU, MDW, GFR, CBC, TROPHS, MG ####[place] [address] [place], [place] [address] MCV (RBC) [Entitic vol] 83.7 fL Normal 80.0-94.0 [facility] ([place]) Comment on above: Performed By: #### A DIFF, BMP, ANEU, MDW, GFR, CBC, TROPHS, MG ####[place] [address] [place], [place] [address] Platelet 190 10 3/mcL Normal 130-400 [facility] ([place] Comment on above: Performed By: #### A DIFF, BMP, ANEU, MDW, GFR, CBC, TROPHS, MG ####[place] [address] [place], [place] [address] Platelet mean volume (Bld) [Entitic vol] 7.7 fL Normal 7.4-10.4 [facility] ([place] Comment on above: Performed By: #### A DIFF, BMP, ANEU, MDW, GFR, CBC, TROPHS, MG ####[place] [address] [place], [place] [address] RBC 3.69 10 6/mcL Low 4.04-6.13 [facility] ([place] Comment on above: Performed By: #### A DIFF, BMP, ANEU, MDW, GFR, CBC, TROPHS, MG ####[place] [address] [place], [place] [address] WBC 11.2 10 3/mcL High 4.6-10.8 [facility] ([place] Comment on above: Performed By: #### A DIFF, BMP, ANEU, MDW, GFR, CBC, TROPHS, MG ####[place] [address] [place], [place] [address] LABORATORYOrdered By: Nathalia Hayes on 05-07-2024 Glucose [Mass/Vol] 251 mg/dL High 70 - 110 mg/dL [facility] Work Phone: LABORATORYOrdered By: SYSTEM SYSTEM on 05-07-2024 Troponin I.cardiac DL <= 0.01 ng/mL [Mass/Vol] 11 ng/L Normal 0 - 76 ng/L AO ADM SS Comment on above: Interpretive Data: H igh Sensitive Troponin I Reference Ranges: Female: 0-51 ng/L Male: 0-76 ng/L Testing performed on [employer] using a homogeneous sandwich chemiluminescent immunoassay based on Eversight technology. Troponin I.cardiac DL <= 0.01 ng/mL [Mass/Vol] 13 ng/L Normal 0 - 76 ng/L AO ADM SS Comment on above: Interpretive Data: H igh Sensitive Troponin I Reference Ranges: Female: 0-51 ng/L Male: 0-76 ng/L Testing performed on [employer] using a homogeneous sandwich chemiluminescent immunoassay based on E[employer] technology. Basophil, Absolute 0.1 103/mcL Normal 0.0 [...] 05-07-2024 Magnesium [Mass/Vol] 1.5 mg/dL Low 1.8-2.4 [facility] ([place] Comment on above: Performed By: #### A CHAYO DELGADO, PERLITA CHOU, GFR, CBC, TROPHS, MG ###[place] [place], [place] [address] TROPHSon 05-07-2024 High Sensitivity Troponin I 11 ng/L Normal 0-76 [facility] ([place] Comment on above: Result Comment: High Sensitive Troponin I Reference Ranges:Female: 0-51 ng/LMale: 0-76 ng/LTesting performed on [employer] using a homogeneous sandwich chemiluminescent immunoassay based on LOCI technology. Performed By: ###Idania COOMBS ####[place] [address] [place], [place] [address] High Sensitivity Troponin I 13 ng/L Normal 0-76 [facility] ([place] Comment on above: Result Comment: High Sensitive Troponin I Reference Ranges:Female: 0-51 ng/LMale: 0-76 ng/LTesting performed on [employer] using a homogeneous sandwich chemiluminescent immunoassay based on LOCI technology. Performed By: ###Idania COOMBS ####[place] [address] [place], [place] [address] High Sensitivity Troponin I 13 ng/L Normal 0-76 [facility] ([place] Comment on above: Result Comment: High Sensitive Troponin I Reference Ranges:Female: 0-51 ng/LMale: 0-76 ng/LTesting performed on [employer] using a homogeneous sandwich chemiluminescent immunoassay based on LOCI technology. Performed By: #### A DIFF, BMP, JOSÉ ANTONIO, PERLITA, GFR, CBC, TROPHS, MG ####[facility] [place], [place] [address] XR CHEST 1 VIEWon 05-07-2024 XR CHEST 1 VIEW Normal [facility] ([place]) .Auto Diffon 05-06-2024 Basophil, Absolute 0.1 10 3/mcL Normal 0.0-0.3 [facility] ([place]) Comment on above: Performed By: #### B MP, GFR, ADIFF, ANEU, CBC ####[address] [address] Basophils/100 WBC (Bld) 0.9 % Normal 0.0-2.5 A [facility] ([place]) Comment on above: Performed By: #### B MP, GFR, ADIFF, ANEU, CBC ####[address] [address] Eosinophil, Absolute 0.2 10 3/mcL Normal 0.0-0.7 [facility] ([place]) Comment on above: Performed By: #### B MP, GFR, ADIFF, ANEU, CBC ####[address] [address] Eosinophils/100 WBC (Bld) 1.8 % Normal 0.0-6.0 [facility] ([place]) Comment on above: Performed By: #### B MP, GFR, ADIFF, ANEU, CBC ####[address] [address] Lymphocyte, Absolute 1.6 10 3/mcL Normal 0.9-4.3 [facility] ([place]) Comment on above: Performed By: #### B MP, GFR, ADIFF, ANEU, CBC ####[address] [address] Lymphocytes/100 WBC (Bld) 15.9 % Low 20.0-40.0 [facility] ([place]) Comment on above: Performed By: #### B MP, GFR, ADIFF, ANEU, CBC ####[address] [address] Monocyte, Absolute 1.0 10 3/mcL Normal 0.1-1.4 [facility] ([place]) Comment on above: Performed By: #### B MP, GFR, ADIFF, ANEU, CBC ####[address] [address] Monocytes/100 WBC (Bld) 10.4 % Normal 2.0-13.0 A [facility] ([place]) Comment on above: Performed By: #### B MP, GFR, ADIFF, ANEU, CBC ####[address] [address] Neutrophils/100 WBC (Bld) 71.0 % Normal 50.0-75.0 [facility] ([place] Comment on above: Performed By: #### B MP, GFR, ADIFF, ANEU, CBC ####[address] [address] .GFRon 05-06-2024 GFR 35 ml/min/1.73sqm [facility] ([place] Comment on above: Result Comment: GFR Population [...] #### B MP, GFR, ADIFF, ANEU, CBC ####[address] [address] GFR Non- 29 ml/min/1.73sqm Normal [facility] ([place] Comment on above: Result Comment: GFR Population [...] #### B MP, GFR, ADIFF, ANEU, CBC ####[address] [address] .NEUABSon 05-06-2024 Neutrophil, Absolute 7.0 10 3/mcL Normal 2.3-8.1 [facility] ([place] Comment on above: Performed By: #### B MP, GFR, ADIFF, ANEU, CBC ####[address] [address] BMPon 05-06-2024 BUN/Creatinine Ratio 21.1 ratio Normal 10.0-22.0 [facility] ([place] Comment on above: Performed By: #### B MP, GFR, ADIFF, ANEU, CBC ####[address] [address] Calcium [Mass/Vol] 7.6 mg/dL Low 8.7-10.4 [facility] ([place]) Comment on above: Performed By: #### B MP, GFR, ADIFF, ANEU, CBC ####[address] [address] Chloride [Moles/Vol] 106 mmol/L Normal 98-110 [facility] ([place] Comment on above: Performed By: #### B MP, GFR, ADIFF, ANEU, CBC ####[address] [address] CO2 [Moles/Vol] 20 mmol/L Low 22-32 [facility] ([place] Comment on above: Performed By: #### B MP, GFR, ADIFF, ANEU, CBC ####[address] [address] Creatinine [Mass/Vol] 2.42 mg/dL High 0.60-1.40 [facility] ([place]) Comment on above: Performed By: #### B MP, GFR, ADIFF, ANEU, CBC ####[place] [address] Electrolyte Balance 11.0 mEq/L Normal 4.0-15.0 [facility] ([place]) Comment on above: Performed By: #### B MP, GFR, ADIFF, ANEU, CBC ####[place] [address] Glucose [Mass/Vol] 203 mg/dL High 70-110 [facility] ([place]) Comment on above: Performed By: #### B MP, GFR, ADIFF, ANEU, CBC ####[place] [address] Potassium [Moles/Vol] 4.1 mmol/L Normal 3.5-5.0 [facility] ([place]) Comment on above: Performed By: #### B MP, GFR, ADIFF, ANEU, CBC ####[place] [address] Sodium [Moles/Vol] 137 mmol/L Normal 136-145 [facility] ([place]) Comment on above: Performed By: #### B MP, GFR, ADIFF, ANEU, CBC ####[place] [address] Urea nitrogen [Mass/Vol] 51.0 mg/dL High 8.0-22.0 [facility] ([place] Comment on above: Performed By: #### B MP, GFR, ADIFF, ANEU, CBC ####[place] [address] CBCon 05-06-2024 Erythrocyte distribution width (RBC) [Ratio] 19.5 % High 11.5-15.5 [facility] [place] Comment on above: Performed By: #### B MP, GFR, ADIFF, ANEU, CBC ####[place] [address] Hematocrit (Bld) [Volume fraction] 28.8 % Low 40.0-52.0 [facility] ([place] Comment on above: Performed By: #### B MP, GFR, ADIFF, ANEU, CBC ####[place] [address] Hgb 9.5 G/dL Low 13.0-17.5 [facility] ([place] Comment on above: Performed By: #### B MP, GFR, ADIFF, ANEU, CBC ####[place] [address] MCH (RBC) [Entitic mass] 27.3 pg Normal 27.0-33.0 [facility] ([place] Comment on above: Performed By: #### B MP, GFR, ADIFF, ANEU, CBC ####[place] [address] MCHC 32.9 G/dL Normal 32.0-36.0 [facility] ([place] Comment on above: Performed By: #### B MP, GFR, ADIFF, ANEU, CBC ####[place] [address] MCV (RBC) [Entitic vol] 82.9 fL Normal 81.0-100.0 A [facility] ([place]) Comment on above: Performed By: #### B MP, GFR, ADIFF, ANEU, CBC ####[place] [address] Platelet 189 10 3/mcL Normal 150-450 [facility] ([place] Comment on above: Performed By: #### B MP, GFR, ADIFF, ANEU, CBC ####[place] [address] Platelet mean volume (Bld) [Entitic vol] 7.7 fL Normal 6.4-10.5 [facility] ([place] Comment on above: Performed By: #### B MP, GFR, ADIFF, ANEU, CBC ####[place] [address] RBC 3.48 10 6/mcL Low 4.50-6.00 [facility] ([place] Comment on above: Performed By: #### B MP, GFR, ADIFF, ANEU, CBC ####[place] [address] WBC 9.9 10 3/mcL Normal 4.5-10.8 [facility] ([place] Comment on above: Performed By: #### B MP, GFR, JOSE, ANEU, CBC ####[place] [id number] [place] [address] LABORATORYOrdered By: Hua Kulkarni on 05-06-2024 Glucose [Mass/Vol] 53 mg/dL Low 70 - 110 mg/dL [facility] Work Phone: LABORATORYOrdered By: Richomnd Valadez on 05-06-2024 Blood Glucose Testing Reason Routine (05/06/24 4:39 PM) [facility] Work Phone: Glucose [Mass/Vol] 116 mg/dL High 70 - 110 mg/dL [facility] Work Phone: LABORATORYOrdered By: Renny Martinez on 05-06-2024 Glucose [Mass/Vol] 138 mg/dL High 70 - 110 mg/dL [facility] Work Phone: LABORATORYOrdered By: Lakeisha Yañez on 05-06-2024 Blood Glucose Testing Reason Routine (05/06/24 7:54 AM) [facility] Work Phone: LABORATORYOrdered By: SYSTEM [...] Glucose Testing Reason Routine (05/05/24 9:30 PM) [facility] Work Phone: No Panel Informationon 05-05 Culture Wound Deep Panel Culture results pending. [facility] Work Phone: Culture Wound Deep Panel No growth to date [facility] Work Phone: GS Rare Gram Positive C occi Rare Gram Positive Rods [facility] Work Phone: .Auto Diffon 05-04-2024 Basophil, Absolute 0.1 10 3/mcL Normal 0.0-0.3 [facility] ([place]) Comment on above: Performed By: #### C BC, BMP, ANEU, GFR, ADIFF ####[address] [address] Basophils/100 WBC (Bld) 1.3 % Normal 0.0-2.5 A [facility] ([place] Comment on above: Performed By: #### C BC, BMP, ANEU, GFR, ADIFF ####[address] [address] Eosinophil, Absolute 0.2 10 3/mcL Normal 0.0-0.7 [facility] ([place] Comment on above: Performed By: #### C BC, BMP, ANEU, GFR, ADIFF ####[address] [address] Eosinophils/100 WBC (Bld) 2.1 % Normal 0.0-6.0 [facility] [place] Comment on above: Performed By: #### C BC, BMP, ANEU, GFR, ADIFF ####[address] [address] Lymphocyte, Absolute 1.5 10 3/mcL Normal 0.9-4.3 [facility] ([place] Comment on above: Performed By: #### C BC, BMP, ANEU, GFR, ADIFF ####[address] [address] Lymphocytes/100 WBC (Bld) 18.9 % Low 20.0-40.0 [facility] ([place] Comment on above: Performed By: #### C BC, BMP, ANEU, GFR, ADIFF ####[place] [id number] [place] [address] Monocyte, Absolute 0.9 10 3/mcL Normal 0.1-1.4 [facility] ([place] Comment on above: Performed By: #### C BC, BMP, ANEU, GFR, ADIFF ####[address] [address] Monocytes/100 WBC (Bld) 11.7 % Normal 2.0-13.0 A [facility] ([place]) Comment on above: Performed By: #### C BC, BMP, ANEU, GFR, ADIFF ####[address] [address] Neutrophils/100 WBC (Bld) 66.0 % Normal 50.0-75.0 [facility] ([place]) Comment on above: Performed By: #### C BC, BMP, ANEU, GFR, ADIFF ####[address] [address] .GFRon 05-04-2024 GFR 40 ml/min/1.73sqm Normal [facility] ([place]) Comment on above: Result Comment: [...] #### C BC, BMP, ANEU, GFR, ADIFF ####[address] [address] GFR Non- 33 ml/min/1.73sqm Normal [facility] ([place] Comment on above: Result Comment: GFR Population [...] #### C BC, BMP, ANEU, GFR, ADIFF ####[place] [id number] [place] [address] .NEUABSon 05-04-2024 Neutrophil, Absolute 5.2 10 3/mcL Normal 2.3-8.1 [facility] ([place] Comment on above: Performed By: #### C BC, BMP, ANEU, GFR, ADIFF ####[address] [address] BMPon 05-04-2024 BUN/Creatinine Ratio 21.8 ratio Normal 10.0-22.0 [facility] ([place] Comment on above: Performed By: #### C BC, BMP, ANEU, GFR, ADIFF ####[address] [address] Calcium [Mass/Vol] 7.2 mg/dL Low 8.7-10.4 [facility] ([place]) Comment on above: Performed By: #### C BC, BMP, ANEU, GFR, ADIFF ####[address] [address] Chloride [Moles/Vol] 106 mmol/L Normal 98-110 [facility] ([place] Comment on above: Performed By: #### C BC, BMP, ANEU, GFR, ADIFF ####[address] [address] CO2 [Moles/Vol] 22 mmol/L Normal 22-32 [facility] ([place] Comment on above: Performed By: #### C BC, BMP, ANEU, GFR, ADIFF ####[place] [address] Creatinine [Mass/Vol] 2.16 mg/dL High 0.60-1.40 [facility] ([place]) Comment on above: Performed By: #### C BC, BMP, ANEU, GFR, ADIFF ####[place] [address] Electrolyte Balance 8.0 mEq/L Normal 4.0-15.0 [facility] ([place] Comment on above: Performed By: #### C BC, BMP, ANEU, GFR, ADIFF ####[place] [address] Glucose [Mass/Vol] 255 mg/dL High 70-110 [facility] ([place]) Comment on above: Performed By: #### C BC, BMP, ANEU, GFR, ADIFF ####[place] [address] Potassium [Moles/Vol] 4.1 mmol/L Normal 3.5-5.0 [facility] ([place] Comment on above: Performed By: #### C BC, BMP, ANEU, GFR, ADIFF ####[place] [address] Sodium [Moles/Vol] 136 mmol/L Normal 136-145 [facility] ([place] Comment on above: Performed By: #### C BC, BMP, ANEU, GFR, ADIFF ####[place] [address] Urea nitrogen [Mass/Vol] 47.0 mg/dL High 8.0-22.0 [facility] ([place] Comment on above: Performed By: #### C BC, BMP, ANEU, GFR, ADIFF ####[place] [address] CBCon 05-04-2024 Erythrocyte distribution width (RBC) [Ratio] 18.8 % High 11.5-15.5 [facility] ([place] Comment on above: Performed By: #### C BC, BMP, ANEU, GFR, ADIFF ####[place] [id number] Hematocrit (Bld) [Volume fraction] 29.1 % Low 40.0-52.0 [facility] [place] Comment on above: Performed By: #### C BC, BMP, ANEU, GFR, ADIFF ####[place] [address] Hgb 9.7 G/dL Low 13.0-17.5 [facility] ([place] Comment on above: Performed By: #### C BC, BMP, ANEU, GFR, ADIFF ####[place] [address] MCH (RBC) [Entitic mass] 27.4 pg Normal 27.0-33.0 [facility] ([place] Comment on above: Performed By: #### C BC, BMP, ANEU, GFR, ADIFF ####[place] [address] MCHC 33.2 G/dL Normal 32.0-36.0 [facility] [place] Comment on above: Performed By: #### C BC, BMP, ANEU, GFR, ADIFF ####[place] [address] MCV (RBC) [Entitic vol] 82.5 fL Normal 81.0-100.0 A [facility] ([place] Comment on above: Performed By: #### C BC, BMP, ANEU, GFR, ADIFF ####[place] [address] Platelet 295 10 3/mcL Normal 150-450 [facility] ([place] Comment on above: Performed By: #### C BC, BMP, ANEU, GFR, ADIFF ####[place] [address] Platelet mean volume (Bld) [Entitic vol] 7.4 fL Normal 6.4-10.5 [facility] ([place] Comment on above: Performed By: #### C BC, BMP, ANEU, GFR, ADIFF ####[place] [address] RBC 3.53 10 6/mcL Low 4.50-6.00 [facility] ([place]) Comment on above: Performed By: #### C BC, BMP, ANEU, GFR, ADIFF ####[facility] [place] [address] WBC 7.9 10 3/mcL Normal 4.5-10.8 [facility] ([place] Comment on above: Performed By: #### C BC, BMP, ANEU, GFR, ADIFF ####[facility] [place] [address] LABORATORYOrdered By: SYSTEM SYSTEM on 05-04-2024 Basophils [...] Basophil, Absolute 0.1 10 3/mcL Normal 0.0-0.3 [facility] ([place] Comment on above: Performed By: #### A DIFF, MG, BMP, CBC, GFR, ANEU ####[address] [address] Basophils/100 WBC (Bld) 0.9 % Normal 0.0-2.5 A [facility] ([place] Comment on above: Performed By: #### A DIFF, MG, BMP, CBC, GFR, ANEU ####[address] [address] Eosinophil, Absolute 0.1 10 3/mcL Normal 0.0-0.7 [facility] ([place] Comment on above: Performed By: #### A DIFF, MG, BMP, CBC, GFR, ANEU ####[address] [address] Eosinophils/100 WBC (Bld) 1.8 % Normal 0.0-6.0 [facility] [place] Comment on above: Performed By: #### A DIFF, MG, BMP, CBC, GFR, ANEU ####[address] [address] Lymphocyte, Absolute 1.5 10 3/mcL Normal 0.9-4.3 [facility] ([place] Comment on above: Performed By: #### A DIFF, MG, BMP, CBC, GFR, ANEU ####[address] [address] Lymphocytes/100 WBC (Bld) 17.8 % Low 20.0-40.0 [facility] [place] Comment on above: Performed By: #### A DIFF, MG, BMP, CBC, GFR, ANEU ####[address] [address] Monocyte, Absolute 0.9 10 3/mcL Normal 0.1-1.4 [facility] ([place] Comment on above: Performed By: #### A DIFF, MG, BMP, CBC, GFR, ANEU ####[address] [address] Monocytes/100 WBC (Bld) 10.6 % Normal 2.0-13.0 [facility] ([place] Comment on above: Performed By: #### A DIFF, MG, BMP, CBC, GFR, ANEU ####[address] [address] Neutrophils/100 WBC (Bld) 68.9 % Normal 50.0-75.0 [facility] [place] Comment on above: Performed By: #### A DIFF, MG, BMP, CBC, GFR, ANEU ####[address] [address] .GFRon 05-03-2024 GFR 44 ml/min/1.73sqm Normal [facility] ([place] Comment on above: Result Comment: GFR Population [...] A DIFF, MG, BMP, CBC, GFR, ANEU ####[address] [address] GFR Non- 37 ml/min/1.73sqm Normal [facility] ([place] Comment on above: Result Comment: GFR Population [...] A DIFF, MG, BMP, CBC, GFR, ANEU ####[address] [address] .NEUABSon 05-03-2024 Neutrophil, Absolute 5.8 10 3/mcL Normal 2.3-8.1 [facility] ([place] Comment on above: Performed By: #### A DIFF, MG, BMP, CBC, GFR, ANEU ####[address] [address] BMPon 05-03-2024 BUN/Creatinine Ratio 21.3 ratio Normal 10.0-22.0 [facility] ([place] Comment on above: Performed By: #### A DIFF, MG, BMP, CBC, GFR, ANEU ####[place] [address] Calcium [Mass/Vol] 7.9 mg/dL Low 8.7-10.4 [facility] ([place]) Comment on above: Performed By: #### A DIFF, MG, BMP, CBC, GFR, ANEU ####[place] [address] Chloride [Moles/Vol] 107 mmol/L Normal 98-110 [facility] ([place] Comment on above: Performed By: #### A DIFF, MG, BMP, CBC, GFR, ANEU ####[place] [address] CO2 [Moles/Vol] 23 mmol/L Normal 22-32 [facility] ([place] Comment on above: Performed By: #### A DIFF, MG, BMP, CBC, GFR, ANEU ####[place] [address] Creatinine [Mass/Vol] 1.97 mg/dL High 0.60-1.40 [facility] ([place] Comment on above: Performed By: #### A DIFF, MG, BMP, CBC, GFR, ANEU ####[place] [address] Electrolyte Balance 9.0 mEq/L Normal 4.0-15.0 [facility] ([place] Comment on above: Performed By: #### A DIFF, MG, BMP, CBC, GFR, ANEU ####[place] [address] Glucose [Mass/Vol] 185 mg/dL High 70-110 [facility] ([place] Comment on above: Performed By: #### A DIFF, MG, BMP, CBC, GFR, ANEU ####[place] [address] Potassium [Moles/Vol] 4.0 mmol/L Normal 3.5-5.0 [facility] ([place] Comment on above: Performed By: #### A DIFF, MG, BMP, CBC, GFR, ANEU ####[place] [address] Sodium [Moles/Vol] 139 mmol/L Normal 136-145 [facility] ([place] Comment on above: Performed By: #### A DIFF, MG, BMP, CBC, GFR, ANEU ####[place] [address] Urea nitrogen [Mass/Vol] 42.0 mg/dL High 8.0-22.0 [facility] ([place] Comment on above: Performed By: #### A DIFF, MG, BMP, CBC, GFR, ANEU ####[place] [address] CBCon 05-03-2024 Erythrocyte distribution width (RBC) [Ratio] 18.2 % High 11.5-15.5 [facility] ([place] Comment on above: Performed By: #### A DIFF, MG, BMP, CBC, GFR, ANEU ####[place] [address] Hematocrit (Bld) [Volume fraction] 29.9 % Low 40.0-52.0 [facility] ([place] Comment on above: Performed By: #### A DIFF, MG, BMP, CBC, GFR, ANEU ####[place] [address] Hgb 10.1 G/dL Low 13.0-17.5 [facility] ([place] Comment on above: Performed By: #### A DIFF, MG, BMP, CBC, GFR, ANEU ####[place] [address] MCH (RBC) [Entitic mass] 27.5 pg Normal 27.0-33.0 [facility] ([place] Comment on above: Performed By: #### A DIFF, MG, BMP, CBC, GFR, ANEU ####[place] [address] MCHC 33.8 G/dL Normal 32.0-36.0 [facility] ([place] Comment on above: Performed By: #### A DIFF, MG, BMP, CBC, GFR, ANEU ####[place] [address] MCV (RBC) [Entitic vol] 81.2 fL Normal 81.0-100.0 A [facility] ([place] Comment on above: Performed By: #### A DIFF, MG, BMP, CBC, GFR, ANEU ####[place] [address] Platelet 334 10 3/mcL Normal 150-450 [facility] ([place] Comment on above: Performed By: #### A DIFF, MG, BMP, CBC, GFR, ANEU ####[place] [address] Platelet mean volume (Bld) [Entitic vol] 7.8 fL Normal 6.4-10.5 [facility] ([place] Comment on above: Performed By: #### A DIFF, MG, BMP, CBC, GFR, ANEU ####[place] [address] RBC 3.68 10 6/mcL Low 4.50-6.00 [facility] ([place] Comment on above: Performed By: #### A DIFF, MG, BMP, CBC, GFR, ANEU ####[place] [address] WBC 8.5 10 3/mcL Normal 4.5-10.8 [facility] ([place] Comment on above: Performed By: #### A DIFF, MG, BMP, CBC, GFR, ANEU ####[place] [address] LABORATORYOrdered By: Samra uGillaume on 05-03-2024 Blood Glucose Interventions Administered agent to decrease blood sugar (05/03/24 12:10 PM) [facility] Work Phone: LABORATORYOrdered By: SYSTEM [...] 05-03-2024 Magnesium [Mass/Vol] 1.8 mg/dL Normal 1.6-2.4 [facility] ([place] Comment on above: Performed By: #### A DIFF, MG, BMP, CBC, GFR, ANEU ####[address] [address] .Auto Diffon 05-02-2024 Basophil, Absolute 0.1 10 3/mcL Normal 0.0-0.3 [facility] ([place] Comment on above: Performed By: #### B MP, GFR, CBC, ADIFF, MG, ANEU ####[address] [address] Basophils/100 WBC (Bld) 0.6 % Normal 0.0-2.5 A [facility] ([place] Comment on above: Performed By: #### B MP, GFR, CBC, ADIFF, MG, ANEU ####[address] [address] Eosinophil, Absolute 0.2 10 3/mcL Normal 0.0-0.7 [facility] ([place] Comment on above: Performed By: #### B MP, GFR, CBC, ADIFF, MG, ANEU ####[address] [address] Eosinophils/100 WBC (Bld) 2.1 % Normal 0.0-6.0 [facility] [place] Comment on above: Performed By: #### B MP, GFR, CBC, ADIFF, MG, ANEU ####[address] [address] Lymphocyte, Absolute 1.3 10 3/mcL Normal 0.9-4.3 [facility] ([place] Comment on above: Performed By: #### B MP, GFR, CBC, ADIFF, MG, ANEU ####[address] [address] Lymphocytes/100 WBC (Bld) 15.7 % Low 20.0-40.0 [facility] ([place] Comment on above: Performed By: #### B MP, GFR, CBC, ADIFF, MG, ANEU ####[address] [address] Monocyte, Absolute 0.9 10 3/mcL Normal 0.1-1.4 [facility] ([place] Comment on above: Performed By: #### B MP, GFR, CBC, ADIFF, MG, ANEU ####[address] [address] Monocytes/100 WBC (Bld) 10.4 % Normal 2.0-13.0 A [facility] ([place] Comment on above: Performed By: #### B MP, GFR, CBC, ADIFF, MG, ANEU ####[address] [address] Neutrophils/100 WBC (Bld) 71.2 % Normal 50.0-75.0 [facility] ([place] Comment on above: Performed By: #### B MP, GFR, CBC, ADIFF, MG, ANEU ####[address] [address] .GFRon 05-02-2024 GFR 40 ml/min/1.73sqm Normal [facility] ([place] Comment on above: Result Comment: GFR Population [...] B MP, GFR, CBC, ADIFF, MG, ANEU ####[address] [address] GFR Non- 33 ml/min/1.73sqm Normal [facility] ([place] Comment on above: Result Comment: GFR Population [...] B MP, GFR, CBC, ADIFF, MG, ANEU ####[address] [address] .NEUABSon 05-02-2024 Neutrophil, Absolute 6.1 10 3/mcL Normal 2.3-8.1 [facility] ([place] Comment on above: Performed By: #### B MP, GFR, CBC, ADIFF, MG, ANEU ####[address] [address] BMPon 05-02-2024 BUN/Creatinine Ratio 19.2 ratio Normal 10.0-22.0 [facility] ([place] Comment on above: Performed By: #### B MP, GFR, CBC, ADIFF, MG, ANEU ####[address] [address] Calcium [Mass/Vol] 7.8 mg/dL Low 8.7-10.4 [facility] ([place]) Comment on above: Performed By: #### B MP, GFR, CBC, ADIFF, MG, ANEU ####[address] [address] Chloride [Moles/Vol] 106 mmol/L Normal 98-110 [facility] ([place] Comment on above: Performed By: #### B MP, GFR, CBC, ADIFF, MG, ANEU ####[address] [address] CO2 [Moles/Vol] 24 mmol/L Normal 22-32 [facility] ([place] Comment on above: Performed By: #### B MP, GFR, CBC, ADIFF, MG, ANEU ####[address] [address] Creatinine [Mass/Vol] 2.14 mg/dL High 0.60-1.40 [facility] ([place] Comment on above: Performed By: #### B MP, GFR, CBC, ADIFF, MG, ANEU ####[address] [address] Electrolyte Balance 9.0 mEq/L Normal 4.0-15.0 [facility] ([place] Comment on above: Performed By: #### B MP, GFR, CBC, ADIFF, MG, ANEU ####[place] [address] Glucose [Mass/Vol] 166 mg/dL High 70-110 [facility] ([place] Comment on above: Performed By: #### B MP, GFR, CBC, ADIFF, MG, ANEU ####[address] [address] Potassium [Moles/Vol] 3.8 mmol/L Normal 3.5-5.0 [facility] ([place] Comment on above: Performed By: #### B MP, GFR, CBC, ADIFF, MG, ANEU ####[address] [address] Sodium [Moles/Vol] 139 mmol/L Normal 136-145 [facility] ([place] Comment on above: Performed By: #### B MP, GFR, CBC, ADIFF, MG, ANEU ####[address] [address] Urea nitrogen [Mass/Vol] 41.0 mg/dL High 8.0-22.0 [facility] [place] Comment on above: Performed By: #### B MP, GFR, CBC, ADIFF, MG, ANEU ####[place] [address] CBCon 05-02-2024 Erythrocyte distribution width (RBC) [Ratio] 18.3 % High 11.5-15.5 [facility] [place] Comment on above: Performed By: #### B MP, GFR, CBC, ADIFF, MG, ANEU ####[place] [address] Hematocrit (Bld) [Volume fraction] 29.0 % Low 40.0-52.0 [facility] [place] Comment on above: Performed By: #### B MP, GFR, CBC, ADIFF, MG, ANEU ####[place] [address] Hgb 9.6 G/dL Low 13.0-17.5 [facility] [place] Comment on above: Performed By: #### B MP, GFR, CBC, ADIFF, MG, ANEU ####[place] [address] MCH (RBC) [Entitic mass] 27.2 pg Normal 27.0-33.0 [facility] [place] Comment on above: Performed By: #### B MP, GFR, CBC, ADIFF, MG, ANEU ####[place] [address] MCHC 33.2 G/dL Normal 32.0-36.0 [facility] [place] Comment on above: Performed By: #### B MP, GFR, CBC, ADIFF, MG, ANEU ####[place] [address] MCV (RBC) [Entitic vol] 81.9 fL Normal 81.0-100.0 A [facility] ([place] Comment on above: Performed By: #### B MP, GFR, CBC, ADIFF, MG, ANEU ####[place] [address] Platelet 383 10 3/mcL Normal 150-450 [facility] ([place] Comment on above: Performed By: #### B MP, GFR, CBC, ADIFF, MG, ANEU ####[place] [address] Platelet mean volume (Bld) [Entitic vol] 8.1 fL Normal 6.4-10.5 [facility] [place] Comment on above: Performed By: #### B MP, GFR, CBC, ADIFF, MG, ANEU ####[place] [address] RBC 3.54 10 6/mcL Low 4.50-6.00 [facility] [place] Comment on above: Performed By: #### B MP, GFR, CBC, ADIFF, MG, ANEU ####[place] [address] WBC 8.6 10 3/mcL Normal 4.5-10.8 [facility] [place] Comment on above: Performed By: #### B MP, GFR, CBC, ADIFF, MG, ANEU ####[place] [address] LABORATORYOrdered By: SYSTEM SYSTEM on 05-02-2024 Magnesium [Mass/Vol] 1.4 mg/dL Low 1.6 - 2 .4 mg/dL [facility] MGon 05-02-2024 Magnesium [Mass/Vol] 1.4 mg/dL Low 1.6-2.4 [facility] ([place] Comment on above: Performed By: #### B MP, GFR, CBC, ADIFF, MG, ANEU ####[place] [address] .Auto Diffon 05-01-2024 Basophil, Absolute 0.1 10 3/mcL Normal 0.0-0.3 [facility] ([place] Comment on above: Performed By: #### A ARBEN, GFR, CMP, ADIFF, CBC ####[place] [address] Basophils/100 WBC (Bld) 0.7 % Normal 0.0-2.5 A [facility] ([place] Comment on above: Performed By: #### A ARBEN, GFR, CMP, ADIFF, CBC ####[address] [address] Eosinophil, Absolute 0.2 10 3/mcL Normal 0.0-0.7 [facility] ([place] Comment on above: Performed By: #### A ARBEN, GFR, CMP, ADIFF, CBC ####[address] [address] Eosinophils/100 WBC (Bld) 2.1 % Normal 0.0-6.0 [facility] [place] Comment on above: Performed By: #### A ARBEN, GFR, CMP, ADIFF, CBC ####[address] [address] Lymphocyte, Absolute 1.3 10 3/mcL Normal 0.9-4.3 [facility] ([place] Comment on above: Performed By: #### A ARBEN, GFR, CMP, ADIFF, CBC ####[address] [address] Lymphocytes/100 WBC (Bld) 15.9 % Low 20.0-40.0 [facility] [place] Comment on above: Performed By: #### A ARBEN, GFR, CMP, ADIFF, CBC ####[address] [address] Monocyte, Absolute 1.0 10 3/mcL Normal 0.1-1.4 [facility] ([place] Comment on above: Performed By: #### A ARBEN, GFR, CMP, ADIFF, CBC ####[address] [address] Monocytes/100 WBC (Bld) 12.1 % Normal 2.0-13.0 [facility] ([place]) Comment on above: Performed By: #### A ARBEN, GFR, CMP, ADIFF, CBC ####[address] [address] Neutrophils/100 WBC (Bld) 69.2 % Normal 50.0-75.0 [facility] [place] Comment on above: Performed By: #### A ARBEN, GFR, CMP, ADIFF, CBC ####[address] [address] .GFRon 05-01-2024 GFR 39 ml/min/1.73sqm [facility] ([place] Comment on above: Result Comment: GFR Population [...] #### A ARBEN, GFR, CMP, ADIFF, CBC ####[place] [address] GFR Non- 33 ml/min/1.73sqm Normal [facility] ([place] Comment on above: Result Comment: GFR Population [...] #### A ARBEN, GFR, CMP, ADIFF, CBC ####[place] [address] .NEUABSon 05-01-2024 Neutrophil, Absolute 5.5 10 3/mcL Normal 2.3-8.1 [facility] ([place] Comment on above: Performed By: #### A ARBEN, GFR, CMP, ADIFF, CBC ####[place] [address] CBCon 05-01-2024 Erythrocyte distribution width (RBC) [Ratio] 18.3 % High 11.5-15.5 [facility] [place] Comment on above: Performed By: #### A ARBEN, GFR, CMP, ADIFF, CBC ####[place] [address] Hematocrit (Bld) [Volume fraction] 27.8 % Low 40.0-52.0 [facility] [place] Comment on above: Performed By: #### A ARBEN, GFR, CMP, ADIFF, CBC ####[place] [address] Hgb 9.4 G/dL Low 13.0-17.5 [facility] [place] Comment on above: Performed By: #### A ARBEN, GFR, CMP, ADIFF, CBC ####[place] [address] MCH (RBC) [Entitic mass] 27.7 pg Normal 27.0-33.0 [facility] [place] Comment on above: Performed By: #### A ARBEN, GFR, CMP, ADIFF, CBC ####[place] [address] MCHC 33.9 G/dL Normal 32.0-36.0 [facility] ([place] Comment on above: Performed By: #### A ARBEN, GFR, CMP, ADIFF, CBC ####[place] [address] MCV (RBC) [Entitic vol] 81.6 fL Normal 81.0-100.0 [facility] ([place]) Comment on above: Performed By: #### A ARBEN, GFR, CMP, ADIFF, CBC ####[place] [address] Platelet 430 10 3/mcL Normal 150-450 [facility] ([place] Comment on above: Performed By: #### A ARBEN, GFR, CMP, ADIFF, CBC ####[place] [address] Platelet mean volume (Bld) [Entitic vol] 8.0 fL Normal 6.4-10.5 [facility] ([place] Comment on above: Performed By: #### A ARBEN, GFR, CMP, ADIFF, CBC ####[place] [address] RBC 3.41 10 6/mcL Low 4.50-6.00 [facility] ([place] Comment on above: Performed By: #### A ARBEN, GFR, CMP, ADIFF, CBC ####[place] [address] WBC 7.9 10 3/mcL Normal 4.5-10.8 [facility] ([place] Comment on above: Performed By: #### A ARBEN, GFR, CMP, ADIFF, CBC ####[place] [address] CMPon 05-01-2024 Albumin Level 1.4 G/dL Low 3.2-4.8 [facility] ([place] Comment on above: Performed By: #### A ARBEN, GFR, CMP, ADIFF, CBC ####[place] [address] Albumin/Globulin [Mass ratio] 0.3 {ratio} Low 0.9-1.6 [facility] ([place] Comment on above: Performed By: #### A ARBEN, GFR, CMP, ADIFF, CBC ####[address] [address] ALP [Catalytic activity/Vol] 180 U/L High 38-126 [facility] ([place] Comment on above: Performed By: #### A ARBEN, GFR, CMP, ADIFF, CBC ####[place] [address] ALT [Catalytic activity/Vol] 35 U/L Normal 12-55 [facility] ([place] Comment on above: Performed By: #### A ARBEN, GFR, CMP, ADIFF, CBC ####[place] [address] AST [Catalytic activity/Vol] 25 U/L Normal 8-34 [facility] ([place] Comment on above: Performed By: #### A ARBEN, GFR, CMP, ADIFF, CBC ####[place] [id number] Bili Total 0.40 mg/dL Normal 0.20-1.20 [facility] ([place] Comment on above: Result Comment: Use of this assay is not recommended for patients undergoing treatment with eltrombopag due to the potential for falsely elevated results. Performed By: #### A ARBEN, GFR, CMP, ADIFF, CBC ####[place] [address] BUN/Creatinine Ratio 18.8 ratio Normal 10.0-22.0 [facility] ([place] Comment on above: Performed By: #### A ARBEN, GFR, CMP, ADIFF, CBC ####[place] [address] Calcium [Mass/Vol] 7.8 mg/dL Low 8.7-10.4 [facility] ([place]) Comment on above: Performed By: #### A ARBEN, GFR, CMP, ADIFF, CBC ####[place] [address] Chloride [Moles/Vol] 105 mmol/L Normal 98-110 [facility] ([place] Comment on above: Performed By: #### A ARBEN, GFR, CMP, ADIFF, CBC ####[place] [address] CO2 [Moles/Vol] 23 mmol/L Normal 22-32 [facility] ([place] Comment on above: Performed By: #### A ARBEN, GFR, CMP, ADIFF, CBC ####[address] [address] Creatinine [Mass/Vol] 2.18 mg/dL High 0.60-1.40 [facility] ([place]) Comment on above: Performed By: #### A ARBEN, GFR, CMP, ADIFF, CBC ####[place] [address] Electrolyte Balance 9.0 mEq/L Normal 4.0-15.0 [facility] ([place] Comment on above: Performed By: #### A ARBEN, GFR, CMP, ADIFF, CBC ####[address] [address] Globulin 5.0 G/dL High 1.5-3.8 [facility] ([place] Comment on above: Performed By: #### A ARBEN, GFR, CMP, ADIFF, CBC ####[address] [address] Glucose [Mass/Vol] 207 mg/dL High 70-110 [facility] ([place]) Comment on above: Performed By: #### A ARBEN, GFR, CMP, ADIFF, CBC ####[address] [address] Potassium [Moles/Vol] 3.5 mmol/L Normal 3.5-5.0 [facility] ([place] Comment on above: Performed By: #### A ARBEN, GFR, CMP, ADIFF, CBC ####[address] [address] Sodium [Moles/Vol] 137 mmol/L Normal 136-145 [facility] ([place]) Comment on above: Performed By: #### A ARBEN, GFR, CMP, ADIFF, CBC ####[address] [address] Total Protein 6.4 G/dL Normal 5.7-8.2 [facility] ([place] Comment on above: Result Comment: No te - New Reference Range in effect 20 Performed By: #### A ARBEN, GFR, CMP, ADIFF, CBC ####[address] [address] Urea nitrogen [Mass/Vol] 41.0 mg/dL High 8.0-22.0 [facility] ([place] Comment on above: Performed By: #### A ARBEN, GFR, CMP, ADIFF, CBC ####[address] [address] LABORATORYOrdered By: Rufina ashraf on 05-01-2024 Blood Glucose Interventions Administered agent to decrease blood sugar (05/01/24 8:53 PM) [facility] Work Phone: LABORATORYOrdered By: SYSTEM [...] Basophil, Absolute 0.1 10 3/mcL Normal 0.0-0.3 [facility] ([place] Comment on above: Performed By: #### A ARBEN, ADIFF, CBC, BMP, GFR, RFP ####[address] [address] Basophils/100 WBC (Bld) 0.6 % Normal 0.0-2.5 [facility] ([place]) Comment on above: Performed By: #### A ARBEN, ADIFF, CBC, BMP, GFR, RFP ####[address] [address] Eosinophil, Absolute 0.2 10 3/mcL Normal 0.0-0.7 [facility] ([place]) Comment on above: Performed By: #### A ARBEN, ADIFF, CBC, BMP, GFR, RFP ####[address] [address] Eosinophils/100 WBC (Bld) 1.7 % Normal 0.0-6.0 [facility] ([place] Comment on above: Performed By: #### A ARBEN, ADIFF, CBC, BMP, GFR, RFP ####[address] [address] Lymphocyte, Absolute 1.6 10 3/mcL Normal 0.9-4.3 [facility] ([place] Comment on above: Performed By: #### A ARBEN, ADIFF, CBC, BMP, GFR, RFP ####[address] [address] Lymphocytes/100 WBC (Bld) 14.4 % Low 20.0-40.0 [facility] ([place] Comment on above: Performed By: #### A ARBEN, ADIFF, CBC, BMP, GFR, RFP ####[address] [address] Monocyte, Absolute 1.1 10 3/mcL Normal 0.1-1.4 [facility] ([place] Comment on above: Performed By: #### A ARBEN, ADIFF, CBC, BMP, GFR, RFP ####[address] [address] Monocytes/100 WBC (Bld) 10.3 % Normal 2.0-13.0 [facility] ([place]) Comment on above: Performed By: #### A ARBEN, ADIFF, CBC, BMP, GFR, RFP ####[address] [address] Neutrophils/100 WBC (Bld) 73.0 % Normal 50.0-75.0 [facility] ([place] Comment on above: Performed By: #### A ARBEN, ADIFF, CBC, BMP, GFR, RFP ####[address] [address] .GFRon 04-30-2024 GFR 36 ml/min/1.73sqm Normal [facility] ([place] Comment on above: Result Comment: GFR Population [...] A ARBEN, ADIFF, CBC, BMP, GFR, RFP ####[address] [address] GFR Non- 29 ml/min/1.73sqm Normal [facility] ([place] Comment on above: Result Comment: GFR Population [...] A ARBEN, ADIFF, CBC, BMP, GFR, RFP ####[address] [address] .NEUABSon 04-30-2024 Neutrophil, Absolute 8.0 10 3/mcL Normal 2.3-8.1 [facility] ([place] Comment on above: Performed By: #### A ARBEN, ADIFF, CBC, BMP, GFR, RFP ####[address] [address] BMPon 04-30-2024 BUN/Creatinine Ratio 19.2 ratio Normal 10.0-22.0 [facility] ([place] Comment on above: Performed By: #### A ARBEN, ADIFF, CBC, BMP, GFR, RFP ####[address] [address] Calcium [Mass/Vol] 7.9 mg/dL Low 8.7-10.4 [facility] ([place]) Comment on above: Performed By: #### A ARBEN, ADIFF, CBC, BMP, GFR, RFP ####[address] [address] Chloride [Moles/Vol] 105 mmol/L Normal 98-110 [facility] ([place] Comment on above: Performed By: #### A ARBEN, ADIFF, CBC, BMP, GFR, RFP ####[place] [address] CO2 [Moles/Vol] 18 mmol/L Low 22-32 [facility] ([place] Comment on above: Performed By: #### A ARBEN, ADIFF, CBC, BMP, GFR, RFP ####[address] [address] Creatinine [Mass/Vol] 2.39 mg/dL High 0.60-1.40 [facility] ([place] Comment on above: Performed By: #### A ARBEN, ADIFF, CBC, BMP, GFR, RFP ####[place] [address] Electrolyte Balance 14.0 mEq/L Normal 4.0-15.0 [facility] ([place]) Comment on above: Performed By: #### A ARBEN, ADIFF, CBC, BMP, GFR, RFP ####[address] [address] Glucose [Mass/Vol] 148 mg/dL High 70-110 [facility] ([place]) Comment on above: Performed By: #### A ARBEN, ADIFF, CBC, BMP, GFR, RFP ####[address] [address] Potassium [Moles/Vol] 4.0 mmol/L Normal 3.5-5.0 [facility] ([place] Comment on above: Performed By: #### A ARBEN, ADIFF, CBC, BMP, GFR, RFP ####[place] [address] Sodium [Moles/Vol] 137 mmol/L Normal 136-145 [facility] ([place]) Comment on above: Performed By: #### A ARBEN, ADIFF, CBC, BMP, GFR, RFP ####[place] [address] Urea nitrogen [Mass/Vol] 46.0 mg/dL High 8.0-22.0 [facility] ([place] Comment on above: Performed By: #### A ARBEN, ADIFF, CBC, BMP, GFR, RFP ####[place] [address] CBCon 04-30-2024 Erythrocyte distribution width (RBC) [Ratio] 17.8 % High 11.5-15.5 [facility] ([place] Comment on above: Performed By: #### A ARBEN, ADIFF, CBC, BMP, GFR, RFP ####[place] [address] Hematocrit (Bld) [Volume fraction] 27.1 % Low 40.0-52.0 [facility] ([place] Comment on above: Performed By: #### A ARBEN, ADIFF, CBC, BMP, GFR, RFP ####[place] [address] Hgb 9.1 G/dL Low 13.0-17.5 [facility] ([place] Comment on above: Performed By: #### A ARBEN, ADIFF, CBC, BMP, GFR, RFP ####[place] [address] MCH (RBC) [Entitic mass] 27.5 pg Normal 27.0-33.0 [facility] ([place] Comment on above: Performed By: #### A ARBEN, ADIFF, CBC, BMP, GFR, RFP ####[place] [address] MCHC 33.4 G/dL Normal 32.0-36.0 [facility] ([place] Comment on above: Performed By: #### A ARBEN, ADIFF, CBC, BMP, GFR, RFP ####[place] [address] MCV (RBC) [Entitic vol] 82.3 fL Normal 81.0-100.0 [facility] ([place] Comment on above: Performed By: #### A ARBEN, ADIFF, CBC, BMP, GFR, RFP ####[address] [address] Platelet 476 10 3/mcL High 150-450 [facility] ([place] Comment on above: Performed By: #### A ARBNE, ADIFF, CBC, BMP, GFR, RFP ####[place] [address] Platelet mean volume (Bld) [Entitic vol] 9.1 fL Normal 6.4-10.5 [facility] ([place] Comment on above: Performed By: #### A ARBEN, ADIFF, CBC, BMP, GFR, RFP ####[place] [address] RBC 3.30 10 6/mcL Low 4.50-6.00 [facility] ([place] Comment on above: Performed By: #### A ARBEN, ADIFF, CBC, BMP, GFR, RFP ####[place] [address] WBC 11.0 10 3/mcL High 4.5-10.8 [facility] ([place] Comment on above: Performed By: #### A ARBEN, ADIFF, CBC, BMP, GFR, RFP ####[place] [address] LABORATORYOrdered By: SYSTEM SYSTEM on 04-30-2024 Albumin BCP dye [Mass/Vol] 1.4 G/dL Low 3.2 - 4.8 G/dL AH ADM SS Phosphate [Mass/Vol] 4.5 mg/dL Normal 2.4 - 5 .1 mg/dL ADM SS Comment on above: Interpretive Data: * *Note - New Reference Range in effect 20 RFPon 04-30-2024 Albumin Level 1.4 G/dL Low 3.2-4.8 [facility] ([place] Comment on above: Performed By: #### A ARBEN, ADIFF, CBC, BMP, GFR, RFP ####[place] [address] Phosphate [Mass/Vol] 4.5 mg/dL Normal 2.4-5.1 [facility] ([place]) Comment on above: Result Comment: No te - New Reference Range in effect 20 Performed By: #### A ARBEN, ADIFF, CBC, BMP, GFR, RFP ####[address] [address] .Auto Diffon 04-29-2024 Basophil, Absolute 0.1 10 3/mcL Normal 0.0-0.3 [facility] ([place] Comment on above: Performed By: #### H FP, ANEU, BMP, GFR, CBC, ADIFF, MG ####[address] [address] Basophils/100 WBC (Bld) 1.1 % Normal 0.0-2.5 A [facility] ([place]) Comment on above: Performed By: #### H FP, ANEU, BMP, GFR, CBC, ADIFF, MG ####[address] [address] Eosinophil, Absolute 0.4 10 3/mcL Normal 0.0-0.7 [facility] ([place] Comment on above: Performed By: #### H FP, ANEU, BMP, GFR, CBC, ADIFF, MG ####[address] [address] Eosinophils/100 WBC (Bld) 3.2 % Normal 0.0-6.0 [facility] ([place] Comment on above: Performed By: #### H FP, ANEU, BMP, GFR, CBC, ADIFF, MG ####[address] [address] Lymphocyte, Absolute 1.8 10 3/mcL Normal 0.9-4.3 [facility] ([place] Comment on above: Performed By: #### H FP, ANEU, BMP, GFR, CBC, ADIFF, MG ####[address] [address] Lymphocytes/100 WBC (Bld) 13.9 % Low 20.0-40.0 [facility] ([place] Comment on above: Performed By: #### H FP, ANEU, BMP, GFR, CBC, ADIFF, MG ####[place] [address] [place] [address] Monocyte, Absolute 1.2 10 3/mcL Normal 0.1-1.4 [facility] ([place] Comment on above: Performed By: #### H FP, ANEU, BMP, GFR, CBC, ADIFF, MG ####[place] [address] [address] [place] [address] Monocytes/100 WBC (Bld) 9.3 % Normal 2.0-13.0 [facility] ([place] Comment on above: Performed By: #### H FP, ANEU, BMP, GFR, CBC, ADIFF, MG ####[address] [address] Neutrophils/100 WBC (Bld) 72.5 % Normal 50.0-75.0 [facility] ([place] Comment on above: Performed By: #### H FP, ANEU, BMP, GFR, CBC, ADIFF, MG ####[address] [address] .GFRon 04-29-2024 GFR Non- 31 ml/min/1.73sqm Normal [facility] ([place] Comment on above: Result Comment: GFR Population [...] FP, ANEU, BMP, GFR, CBC, ADIFF, MG ####[address] [address] GFR 38 ml/min/1.73sqm Normal [facility] ([place] Comment on above: Result Comment: GFR Population [...] FP, ANEU, BMP, GFR, CBC, ADIFF, MG ####[address] [address] .NEUABSon 04-29-2024 Neutrophil, Absolute 9.1 10 3/mcL High 2.3-8.1 [facility] ([place] Comment on above: Performed By: #### H FP, ANEU, BMP, GFR, CBC, ADIFF, MG ####[address] [address] APTTon 04-29-2024 aPTT Coag (Bld) [Time] 39.0 s High 25.0-35.0 [facility] ([place] Comment on above: Result Comment: For Heparin anticoagulation therapy, the recommendedtherapeutic range is: 54-77 seconds (APTT Correlationwith Anti-Xa therapeutic range of 0.3-0.7 units/ml).PLEASE REFERENCE THE PHARMACY PROTOCOL FOR DOSING. Heparin dose (APTT) Heparin IV Normal [facility] ([place]) BMPon 04-29-2024 BUN/Creatinine Ratio 16.7 ratio Normal 10.0-22.0 [facility] ([place] Comment on above: Performed By: #### H FP, ANEU, BMP, GFR, CBC, ADIFF, MG ####[address] [address] Calcium [Mass/Vol] 8.2 mg/dL Low 8.7-10.4 [facility] ([place] Comment on above: Performed By: #### H FP, ANEU, BMP, GFR, CBC, ADIFF, MG ####[address] [address] Chloride [Moles/Vol] 105 mmol/L Normal 98-110 [facility] ([place] Comment on above: Performed By: #### H FP, ANEU, BMP, GFR, CBC, ADIFF, MG ####[address] [address] CO2 [Moles/Vol] 18 mmol/L Low 22-32 [facility] ([place] Comment on above: Performed By: #### H FP, ANEU, BMP, GFR, CBC, ADIFF, MG ####[place] [address] Creatinine [Mass/Vol] 2.28 mg/dL High 0.60-1.40 [facility] ([place] Comment on above: Performed By: #### H FP, ANEU, BMP, GFR, CBC, ADIFF, MG ####[place] [address] Electrolyte Balance 12.0 mEq/L Normal 4.0-15.0 [facility] ([place] Comment on above: Performed By: #### H FP, ANEU, BMP, GFR, CBC, ADIFF, MG ####[place] [address] Glucose [Mass/Vol] 125 mg/dL High 70-110 [facility] ([place] Comment on above: Performed By: #### H FP, ANEU, BMP, GFR, CBC, ADIFF, MG ####[place] [address] Potassium [Moles/Vol] 4.0 mmol/L Normal 3.5-5.0 [facility] ([place] Comment on above: Performed By: #### H FP, ANEU, BMP, GFR, CBC, ADIFF, MG ####[place] [address] Sodium [Moles/Vol] 135 mmol/L Low 136-145 [facility] ([place]) Comment on above: Performed By: #### H FP, ANEU, BMP, GFR, CBC, ADIFF, MG ####[address] [address] Urea nitrogen [Mass/Vol] 38.0 mg/dL High 8.0-22.0 [facility] ([place] Comment on above: Performed By: #### H FP, ANEU, BMP, GFR, CBC, ADIFF, MG ####[address] [address] CBCon 04-29-2024 Erythrocyte distribution width (RBC) [Ratio] 17.3 % High 11.5-15.5 [facility] ([place]) Comment on above: Order Comment: must be drawn in a lavender 04/29/2024 06:36:26 EDT called @06:36am Performed By: #### H FP, ANEU, BMP, GFR, CBC, ADIFF, MG ####[place] [address] Hematocrit (Bld) [Volume fraction] 29.2 % Low 40.0-52.0 [facility] ([place] Comment on above: Order Comment: must be drawn in a lavender 04/29/2024 06:36:26 EDT called @06:36am Performed By: #### H FP, ANEU, BMP, GFR, CBC, ADIFF, MG ####[place] [address] Hgb 9.5 G/dL Low 13.0-17.5 [facility] ([place] Comment on above: Order Comment: must be drawn in a lavender 04/29/2024 06:36:26 EDT called @06:36am Performed By: #### H FP, ANEU, BMP, GFR, CBC, ADIFF, MG ####[address] [address] MCH (RBC) [Entitic mass] 26.9 pg Low 27.0-33.0 [facility] [place] Comment on above: Order Comment: must be drawn in a lavender 04/29/2024 06:36:26 EDT called @06:36am Performed By: #### H FP, ANEU, BMP, GFR, CBC, ADIFF, MG ####[place] [address] MCHC 32.7 G/dL Normal 32.0-36.0 [facility] ([place] Comment on above: Order Comment: must be drawn in a [facility] 04/29/2024 06:36:26 EDT called @06:36am Performed By: #### H FP, ANEU, BMP, GFR, CBC, ADIFF, MG ####[place] [id number] [address] [place] [address] MCV (RBC) [Entitic vol] 82.3 fL Normal 81.0-100.0 A [facility] ([place]) Comment on above: Order Comment: must be drawn in a [facility] 04/29/2024 06:36:26 EDT called @06:36am Performed By: #### H FP, ANEU, BMP, GFR, CBC, ADIFF, MG ####[place] [address] Platelet 502 10 3/mcL High 150-450 [facility] ([place] Comment on above: Order Comment: must be drawn in a [facility] 04/29/2024 06:36:26 EDT called @06:36am Performed By: #### H FP, ANEU, BMP, GFR, CBC, ADIFF, MG ####[place] [address] Platelet mean volume (Bld) [Entitic vol] 9.0 fL Normal 6.4-10.5 [facility] [place] Comment on above: Order Comment: must be drawn in a [facility] 04/29/2024 06:36:26 EDT called @06:36am Performed By: #### H FP, ANEU, BMP, GFR, CBC, ADIFF, MG ####[place] [id number] [address] [place] [address] RBC 3.55 10 6/mcL Low 4.50-6.00 [facility] [place] Comment on above: Order Comment: must be drawn in a [facility] 04/29/2024 06:36:26 EDT called @06:36am Performed By: #### H FP, ANEU, BMP, GFR, CBC, ADIFF, MG ####[place] [address] [place] [address] WBC 12.6 10 3/mcL High 4.5-10.8 [facility] [place] Comment on above: Order Comment: must be drawn in a lavender 04/29/2024 06:36:26 EDT called @06:36am Performed By: #### H FP, ANEU, BMP, GFR, CBC, ADIFF, MG ####[address] [address] HFPon 04-29-2024 Bili Indirect 0.2 mg/dL Normal 0.1-10.0 [facility] [place] Comment on above: Performed By: #### H FP, ANEU, BMP, GFR, CBC, ADIFF, MG ####[place] [address] Albumin Level 1.4 G/dL Low 3.2-4.8 [facility] [place] Comment on above: Performed By: #### H FP, ANEU, BMP, GFR, CBC, ADIFF, MG ####[place] [address] Albumin/Globulin [Mass ratio] 0.3 {ratio} Low 0.9-1.6 [facility] ([place] Comment on above: Performed By: #### H FP, ANEU, BMP, GFR, CBC, ADIFF, MG ####[place] [address] ALP [Catalytic activity/Vol] 183 U/L High 38-126 [facility] [place] Comment on above: Performed By: #### H FP, ANEU, BMP, GFR, CBC, ADIFF, MG ####[place] [address] ALT [Catalytic activity/Vol] 68 U/L High 12-55 [facility] ([place] Comment on above: Performed By: #### H FP, ANEU, BMP, GFR, CBC, ADIFF, MG ####[place] [address] AST [Catalytic activity/Vol] 74 U/L High 8-34 [facility] [place] Comment on above: Performed By: #### H FP, ANEU, BMP, GFR, CBC, ADIFF, MG ####[place] [address] Bili Direct 0.4 mg/dL Normal 0.0-0.4 [facility] [place] Comment on above: Result Comment: Use of this assay is not recommended for patients undergoing treatment with eltrombopag due to the potential for falsely elevated results. Performed By: #### H FP, ANEU, BMP, GFR, CBC, ADIFF, MG ####[place] [address] Bili Total 0.60 mg/dL Normal 0.20-1.20 [facility] ([place] Comment on above: Result Comment: Use of this assay is not recommended for patients undergoing treatment with eltrombopag due to the potential for falsely elevated results. Performed By: #### H FP, ANEU, BMP, GFR, CBC, ADIFF, MG ####[place] [address] Globulin 4.9 G/dL High 1.5-3.8 [facility] [place] Comment on above: Performed By: #### H FP, ANEU, BMP, GFR, CBC, ADIFF, MG ####[place] [address] Total Protein 6.3 G/dL Normal 5.7-8.2 [facility] [place] Comment on above: Result Comment: No te - New Reference Range in effect 20 Performed By: #### H FP, ANEU, BMP, GFR, CBC, ADIFF, MG ####[place] [address] LABORATORYOrdered By: SYSTEM SYSTEM on 04-29-2024 Albumin [...] 04-29-2024 Magnesium [Mass/Vol] 1.8 mg/dL Normal 1.6-2.4 [facility] ([place] Comment on above: Performed By: #### H FP, ANEU, BMP, GFR, CBC, ADIFF, MG ####[place] [address] .Auto Diffon 04-28-2024 Basophil, Absolute 0.1 10 3/mcL Normal 0.0-0.3 [facility] ([place] Comment on above: Performed By: #### C BC, ADIFF, GFR, MG, ANEU, PBNP, RFP ####[address] [address] Basophils/100 WBC (Bld) 0.8 % Normal 0.0-2.5 A [facility] ([place] Comment on above: Performed By: #### C BC, ADIFF, GFR, MG, ANEU, PBNP, RFP ####[address] [address] Eosinophil, Absolute 0.4 10 3/mcL Normal 0.0-0.7 [facility] ([place] Comment on above: Performed By: #### C BC, ADIFF, GFR, MG, ANEU, PBNP, RFP ####[address] [address] Eosinophils/100 WBC (Bld) 2.4 % Normal 0.0-6.0 [facility] [place] Comment on above: Performed By: #### C BC, ADIFF, GFR, MG, ANEU, PBNP, RFP ####[address] [address] Lymphocyte, Absolute 2.4 10 3/mcL Normal 0.9-4.3 [facility] ([place] Comment on above: Performed By: #### C BC, ADIFF, GFR, MG, ANEU, PBNP, RFP ####[address] [address] Lymphocytes/100 WBC (Bld) 14.1 % Low 20.0-40.0 [facility] [place] Comment on above: Performed By: #### C BC, ADIFF, GFR, MG, ANEU, PBNP, RFP ####[address] [address] Monocyte, Absolute 1.5 10 3/mcL High 0.1-1.4 [facility] ([place] Comment on above: Performed By: #### C BC, ADIFF, GFR, MG, ANEU, PBNP, RFP ####[address] [address] Monocytes/100 WBC (Bld) 8.7 % Normal 2.0-13.0 [facility] ([place] Comment on above: Performed By: #### C BC, ADIFF, GFR, MG, ANEU, PBNP, RFP ####[address] [address] Neutrophils/100 WBC (Bld) 74.0 % Normal 50.0-75.0 [facility] [place] Comment on above: Performed By: #### C BC, ADIFF, GFR, MG, ANEU, PBNP, RFP ####[address] [address] .GFRon 04-28-2024 GFR Non- 30 ml/min/1.73sqm Normal [facility] ([place] Comment on above: Result Comment: GFR Population [...] BC, ADIFF, GFR, MG, ANEU, PBNP, RFP ####[address] [address] GFR 37 ml/min/1.73sqm Normal [facility] ([place] Comment on above: Result Comment: GFR Population [...] BC, ADIFF, GFR, MG, ANEU, PBNP, RFP ####[address] [address] .NEUABSon 04-28-2024 Neutrophil, Absolute 12.5 10 3/mcL High 2.3-8.1 A [facility] ([place] Comment on above: Performed By: #### C BC, ADIFF, GFR, MG, ANEU, PBNP, RFP ####[place] [address] APTTon 04-28-2024 aPTT Coag (Bld) [Time] 33.5 s Normal 25.0-35.0 [facility] ([place] Comment on above: Result Comment: For Heparin anticoagulation therapy, the recommendedtherapeutic range is: 54-77 seconds (APTT Correlationwith Anti-Xa therapeutic range of 0.3-0.7 units/ml).PLEASE REFERENCE THE PHARMACY PROTOCOL FOR DOSING. Heparin dose (APTT) Heparin IV Normal [facility] ([place] aPTT Coag (Bld) [Time] 35.7 s High 25.0-35.0 [facility] ([place] Comment on above: Result Comment: For Heparin anticoagulation therapy, the recommendedtherapeutic range is: 54-77 seconds (APTT Correlationwith Anti-Xa therapeutic range of 0.3-0.7 units/ml).PLEASE REFERENCE THE PHARMACY PROTOCOL FOR DOSING. Heparin dose (APTT) Heparin IV Normal [facility] ([place]) aPTT Coag (Bld) [Time] 34.4 s Normal 25.0-35.0 [facility] ([place]) Comment on above: Result Comment: For Heparin anticoagulation therapy, the recommendedtherapeutic range is: 54-77 seconds (APTT Correlationwith Anti-Xa therapeutic range of 0.3-0.7 units/ml).PLEASE REFERENCE THE PHARMACY PROTOCOL FOR DOSING. Performed By: #### C BC, ADIFF, GFR, MG, ANEU, PBNP, RFP ####[place] [address] Heparin dose (APTT) Unknown Normal [facility] ([place]) Comment on above: Performed By: #### C BC, ADIFF, GFR, MG, ANEU, PBNP, RFP ####[place] [address] CBCon 04-28-2024 Erythrocyte distribution width (RBC) [Ratio] 17.9 % High 11.5-15.5 [facility] ([place] Comment on above: Performed By: #### C BC, ADIFF, GFR, MG, ANEU, PBNP, RFP ####[place] [address] Hematocrit (Bld) [Volume fraction] 28.3 % Low 40.0-52.0 [facility] ([place] Comment on above: Performed By: #### C BC, ADIFF, GFR, MG, ANEU, PBNP, RFP ####[place] [address] Hgb 9.1 G/dL Low 13.0-17.5 [facility] ([place] Comment on above: Performed By: #### C BC, ADIFF, GFR, MG, ANEU, PBNP, RFP ####[place] [address] MCH (RBC) [Entitic mass] 26.8 pg Low 27.0-33.0 [facility] ([place] Comment on above: Performed By: #### C BC, ADIFF, GFR, MG, ANEU, PBNP, RFP ####[place] [address] MCHC 32.1 G/dL Normal 32.0-36.0 [facility] ([place] Comment on above: Performed By: #### C BC, ADIFF, GFR, MG, ANEU, PBNP, RFP ####[place] [address] MCV (RBC) [Entitic vol] 83.5 fL Normal 81.0-100.0 A [facility] ([place]) Comment on above: Performed By: #### C BC, ADIFF, GFR, MG, ANEU, PBNP, RFP ####[place] [address] Platelet 561 10 3/mcL High 150-450 [facility] ([place] Comment on above: Performed By: #### C BC, ADIFF, GFR, MG, ANEU, PBNP, RFP ####[place] [address] Platelet mean volume (Bld) [Entitic vol] 9.3 fL Normal 6.4-10.5 [facility] ([place] Comment on above: Performed By: #### C BC, ADIFF, GFR, MG, ANEU, PBNP, RFP ####[place] [address] RBC 3.39 10 6/mcL Low 4.50-6.00 [facility] ([place] Comment on above: Performed By: #### C BC, ADIFF, GFR, MG, ANEU, PBNP, RFP ####[place] [address] WBC 16.9 10 3/mcL High 4.5-10.8 [facility] ([place] Comment on above: Performed By: #### C BC, ADIFF, GFR, MG, ANEU, PBNP, RFP ####[place] [address] DIGon 04-28-2024 LDose Digoxin: See eMAR Normal [facility] ([place] Comment on above: Performed By: #### D IG ####[place] [address] Digoxin Level 0.44 ng/mL Low 0.80-2.00 [facility] ([place] Comment on above: Performed By: #### D IG ####[place] [address] LABORATORYOrdered By: Yamel Carlos on 04-28-2024 aPTT [...] 04-28-2024 Natriuretic peptide.B prohormone N-Terminal [place] [Mass/Vol] 55739 pg/mL High 0 - 450 pg/mL ADM SS MGon 04-28-2024 Magnesium [Mass/Vol] 1.6 mg/dL Normal 1.6-2.4 [facility] ([place]) Comment on above: Performed By: #### C BC, ADIFF, GFR, MG, ANEU, PBNP, RFP ####[place] [address] PBNPon 04-28-2024 Natriuretic peptide B (Bld) [Mass/Vol] 59968 pg/mL High 0-450 [facility] ([place] Comment on above: Performed By: #### C BC, ADIFF, GFR, MG, ANEU, PBNP, RFP ####[address] [address] RFPon 04-28-2024 Albumin Level 1.5 G/dL Low 3.2-4.8 [facility] ([place] Comment on above: Performed By: #### C BC, ADIFF, GFR, MG, ANEU, PBNP, RFP ####[place] [address] BUN/Creatinine Ratio 21.2 ratio Normal 10.0-22.0 [facility] ([place]) Comment on above: Performed By: #### C BC, ADIFF, GFR, MG, ANEU, PBNP, RFP ####[place] [address] Calcium [Mass/Vol] 8.0 mg/dL Low 8.7-10.4 [facility] ([place]) Comment on above: Performed By: #### C BC, ADIFF, GFR, MG, ANEU, PBNP, RFP ####[place] [address] Chloride [Moles/Vol] 107 mmol/L Normal 98-110 [facility] ([place] Comment on above: Performed By: #### C BC, ADIFF, GFR, MG, ANEU, PBNP, RFP ####[place] [address] CO2 [Moles/Vol] 19 mmol/L Low 22-32 [facility] ([place] Comment on above: Performed By: #### C BC, ADIFF, GFR, MG, ANEU, PBNP, RFP ####[place] [address] Creatinine [Mass/Vol] 2.31 mg/dL High 0.60-1.40 [facility] ([place]) Comment on above: Performed By: #### C BC, ADIFF, GFR, MG, ANEU, PBNP, RFP ####[place] [address] Electrolyte Balance 7.0 mEq/L Normal 4.0-15.0 [facility] ([place] Comment on above: Performed By: #### C BC, ADIFF, GFR, MG, ANEU, PBNP, RFP ####[address] [address] Glucose [Mass/Vol] 138 mg/dL High 70-110 [facility] ([place]) Comment on above: Performed By: #### C BC, ADIFF, GFR, MG, ANEU, PBNP, RFP ####[address] [address] Phosphate [Mass/Vol] 4.7 mg/dL Normal 2.4-5.1 [facility] ([place]) Comment on above: Result Comment: No te - New Reference Range in effect 20 Performed By: #### C BC, ADIFF, GFR, MG, ANEU, PBNP, RFP ####[place] [id number] [address] [place] [address] Potassium [Moles/Vol] 4.2 mmol/L Normal 3.5-5.0 [facility] ([place]) Comment on above: Performed By: #### C BC, ADIFF, GFR, MG, ANEU, PBNP, RFP ####[address] [address] Sodium [Moles/Vol] 133 mmol/L Low 136-145 [facility] ([place]) Comment on above: Performed By: #### C BC, ADIFF, GFR, MG, ANEU, PBNP, RFP ####[address] [address] Urea nitrogen [Mass/Vol] 49.0 mg/dL High 8.0-22.0 [facility] ([place] Comment on above: Performed By: #### C BC, ADIFF, GFR, MG, ANEU, PBNP, RFP ####[address] [address] XR CHEST 1 VIEWon 04-28-2024 XR CHEST 1 VIEW Normal [facility] ([place] .GFRon 04-27-2024 GFR 37 ml/min/1.73sqm Normal [facility] ([place] Comment on above: Result Comment: GFR Population [...] G FR, DIFF, CBC, MG, RFP, MORPH ####[address] [address] GFR Non- 31 ml/min/1.73sqm Normal [facility] ([place] Comment on above: Result Comment: GFR Population [...] G FR, DIFF, CBC, MG, RFP, MORPH ####[place] [address] .Manual Diffon 04-27-2024 Bands 2.0 % Normal 0.0-5.0 [facility] ([place] Comment on above: Performed By: #### D IFF, PRO, CBC, MORPH ####[place] [address] Basophil %, Manual 2.0 % Normal 0.0-2.5 [facility] ([place]) Comment on above: Performed By: #### Deonte IFF, PRO, CBC, MORPH ####[place] [address] Basophil, Abs Manual 0.3 10 3/mcL Normal 0.0-0.3 [facility] ([place]) Comment on above: Performed By: #### D IFF, PRO, CBC, MORPH ####[address] [address] Eosinophil %, Manual 4.0 % Normal 0.0-6.0 [facility] ([place] Comment on above: Performed By: #### D IFF, PRO, CBC, MORPH ####[address] [address] Eosinophil, Abs Manual 0.6 10 3/mcL Normal 0.0-0.7 [facility] ([place] Comment on above: Performed By: #### D IFF, PRO, CBC, MORPH ####[address] [address] Lymphocyte %, Manual 8.0 % Low 20.0-40.0 [facility] ([place] Comment on above: Performed By: #### D IFF, PRO, CBC, MORPH ####[address] [address] Lymphocyte, Abs Manual 1.3 10 3/mcL Normal 0.9-4.3 [facility] ([place] Comment on above: Performed By: #### D IFF, PRO, CBC, MORPH ####[address] [address] Monocyte %, Manual 4.0 % Normal 2.0-13.0 [facility] ([place] Comment on above: Performed By: #### D IFF, PRO, CBC, MORPH ####[address] [address] Monocyte, Abs Manual 0.7 10 3/mcL Normal 0.1-1.4 [facility] ([place]) Comment on above: Performed By: #### D IFF, PRO, CBC, MORPH ####[address] [address] Neutrophil %, Manual 80.0 % High 50.0-75.0 [facility] ([place] Comment on above: Performed By: #### D IFF, PRO, CBC, MORPH ####[address] [address] Neutrophil, Abs Manual 13.2 10 3/mcL High 2.3-8.1 [facility] ([place] Comment on above: Performed By: #### D IFF, PRO, CBC, MORPH ####[address] [address] Nucleated RBC 0.0 /100 WBC Normal [facility] ([place] Comment on above: Performed By: #### D IFF, PRO, CBC, MORPH ####[address] [address] Bands 5.0 % Normal 0.0-5.0 [facility] ([place] Comment on above: Performed By: #### G FR, DIFF, CBC, MG, RFP, MORPH ####[address] [address] Basophil %, Manual 0.0 % Normal 0.0-2.5 [facility] ([place] Comment on above: Performed By: #### G FR, DIFF, CBC, MG, RFP, MORPH ####[address] [address] Basophil, Abs Manual 0.0 10 3/mcL Normal 0.0-0.3 [facility] ([place] Comment on above: Performed By: #### G FR, DIFF, CBC, MG, RFP, MORPH ####[address] [address] Eosinophil %, Manual 3.0 % Normal 0.0-6.0 [facility] ([place] Comment on above: Performed By: #### G FR, DIFF, CBC, MG, RFP, MORPH ####[address] [address] Eosinophil, Abs Manual 0.5 10 3/mcL Normal 0.0-0.7 [facility] ([place] Comment on above: Performed By: #### G FR, DIFF, CBC, MG, RFP, MORPH ####[address] [address] Lymphocyte %, Manual 10.0 % Low 20.0-40.0 [facility] ([place] Comment on above: Performed By: #### G FR, DIFF, CBC, MG, RFP, MORPH ####[address] [address] Lymphocyte, Abs Manual 1.7 10 3/mcL Normal 0.9-4.3 [facility] ([place] Comment on above: Performed By: #### G FR, DIFF, CBC, MG, RFP, MORPH ####[place] [address] Metamyelocyte 1.0 % Normal [facility] ([place] Comment on above: Performed By: #### G FR, DIFF, CBC, MG, RFP, MORPH ####[address] [address] Monocyte %, Manual 16.0 % High 2.0-13.0 [facility] ([place] Comment on above: Performed By: #### G FR, DIFF, CBC, MG, RFP, MORPH ####[place] [address] Monocyte, Abs Manual 2.7 10 3/mcL High 0.1-1.4 [facility] ([place] Comment on above: Performed By: #### G FR, DIFF, CBC, MG, RFP, MORPH ####[place] [address] Neutrophil %, Manual 65.0 % Normal 50.0-75.0 [facility] ([place] Comment on above: Performed By: #### G FR, DIFF, CBC, MG, RFP, MORPH ####[place] [id number] Neutrophil, Abs Manual 11.6 10 3/mcL High 2.3-8.1 [facility] ([place] Comment on above: Performed By: #### G FR, DIFF, CBC, MG, RFP, MORPH ####[place] [address] Nucleated RBC 0.0 /100 WBC Normal [facility] ([place] Comment on above: Performed By: #### G FR, DIFF, CBC, MG, RFP, MORPH ####[place] [address] .Morphon 04-27-2024 Platelet Estimate Slt Increased Normal [facility] ([place] Comment on above: Performed By: #### D IFF, PRO, CBC, MORPH ####[place] [address] Anisocytosis Ql (Bld) 1+ Normal [facility] ([place] Comment on above: Performed By: #### D IFF, PRO, CBC, MORPH ####[place] [address] Anisocytosis Ql (Bld) 1+ Normal [facility] ([place] Comment on above: Performed By: #### G FR, DIFF, CBC, MG, RFP, MORPH ####[place] [address] Microcytosis 1+ Normal [facility] ([place] Comment on above: Performed By: #### G FR, DIFF, CBC, MG, RFP, MORPH ####[place] [address] Platelet Estimate Increased Normal [facility] ([place] Comment on above: Performed By: #### G FR, DIFF, CBC, MG, RFP, MORPH ####[place] [address] Polychrom 1+ Normal [facility] ([place] Comment on above: Performed By: #### G FR, DIFF, CBC, MG, RFP, MORPH ####[place] [address] Toxic Gran 1+ Normal [facility] ([place] Comment on above: Performed By: #### G FR, DIFF, CBC, MG, RFP, MORPH ####[place] [address] APTTon 04-27-2024 aPTT Coag (Bld) [Time] 33.1 s Normal 25.0-35.0 [facility] ([place] Comment on above: Result Comment: For Heparin anticoagulation therapy, the recommendedtherapeutic range is: 54-77 seconds (APTT Correlationwith Anti-Xa therapeutic range of 0.3-0.7 units/ml).PLEASE REFERENCE THE PHARMACY PROTOCOL FOR DOSING. Heparin dose (APTT) Unknown Normal [facility] ([place] aPTT Coag (Bld) [Time] 32.3 s Normal 25.0-35.0 [facility] ([place] Comment on above: Result Comment: For Heparin anticoagulation therapy, the recommendedtherapeutic range is: 54-77 seconds (APTT Correlationwith Anti-Xa therapeutic range of 0.3-0.7 units/ml).PLEASE REFERENCE THE PHARMACY PROTOCOL FOR DOSING. Heparin dose (APTT) Heparin IV Normal [facility] ([place] aPTT Coag (Bld) [Time] 34.0 s Normal 25.0-35.0 [facility] ([place] Comment on above: Result Comment: For Heparin anticoagulation therapy, the recommendedtherapeutic range is: 54-77 seconds (APTT Correlationwith Anti-Xa therapeutic range of 0.3-0.7 units/ml).PLEASE REFERENCE THE PHARMACY PROTOCOL FOR DOSING. Performed By: #### D IFF, PRO, CBC, MORPH ####[place] [address] Heparin dose (APTT) Heparin IV Normal [facility] ([place] Comment on above: Performed By: #### D IFF, PRO, CBC, MORPH ####[place] [address] CBCon 04-27-2024 Erythrocyte distribution width (RBC) [Ratio] 16.9 % High 11.5-15.5 [facility] ([place] Comment on above: Performed By: #### D IFF, PRO, CBC, MORPH ####[place] [address] Hematocrit (Bld) [Volume fraction] 28.0 % Low 40.0-52.0 [facility] ([place] Comment on above: Performed By: #### D IFF, PRO, CBC, MORPH ####[place] [address] Hgb 8.8 G/dL Low 13.0-17.5 [facility] ([place] Comment on above: Performed By: #### D IFF, PRO, CBC, MORPH ####[place] [address] MCH (RBC) [Entitic mass] 26.0 pg Low 27.0-33.0 [facility] ([place] Comment on above: Performed By: #### D IFF, PRO, CBC, MORPH ####[place] [address] MCHC 31.3 G/dL Low 32.0-36.0 [facility] ([place] Comment on above: Performed By: #### D IFF, PRO, CBC, MORPH ####[place] [address] MCV (RBC) [Entitic vol] 83.1 fL Normal 81.0-100.0 A [facility] ([place] Comment on above: Performed By: #### D IFF, PRO, CBC, MORPH ####[place] [address] Platelet 535 10 3/mcL High 150-450 [facility] ([place] Comment on above: Performed By: #### D IFF, PRO, CBC, MORPH ####[place] [address] Platelet mean volume (Bld) [Entitic vol] 9.6 fL Normal 6.4-10.5 [facility] ([place] Comment on above: Performed By: #### D IFF, PRO, CBC, MORPH ####[place] [address] RBC 3.37 10 6/mcL Low 4.50-6.00 [facility] ([place] Comment on above: Performed By: #### D IFF, PRO, CBC, MORPH ####[place] [address] WBC 16.1 10 3/mcL High 4.5-10.8 [facility] ([place] Comment on above: Performed By: #### D IFF, PRO, CBC, MORPH ####[place] [address] Erythrocyte distribution width (RBC) [Ratio] 16.9 % High 11.5-15.5 [facility] ([place] Comment on above: Performed By: #### G FR, DIFF, CBC, MG, RFP, MORPH ####[place] [address] Hematocrit (Bld) [Volume fraction] 28.9 % Low 40.0-52.0 [facility] ([place] Comment on above: Performed By: #### G FR, DIFF, CBC, MG, RFP, MORPH ####[place] [address] Hgb 9.1 G/dL Low 13.0-17.5 [facility] ([place] Comment on above: Performed By: #### G FR, DIFF, CBC, MG, RFP, MORPH ####[place] [address] MCH (RBC) [Entitic mass] 26.3 pg Low 27.0-33.0 [facility] ([place] Comment on above: Performed By: #### G FR, DIFF, CBC, MG, RFP, MORPH ####[place] [address] MCHC 31.6 G/dL Low 32.0-36.0 [facility] ([place] Comment on above: Performed By: #### G FR, DIFF, CBC, MG, RFP, MORPH ####[place] [address] MCV (RBC) [Entitic vol] 83.2 fL Normal 81.0-100.0 A [facility] ([place] Comment on above: Performed By: #### G FR, DIFF, CBC, MG, RFP, MORPH ####[place] [address] Platelet 594 10 3/mcL High 150-450 [facility] ([place] Comment on above: Performed By: #### G FR, DIFF, CBC, MG, RFP, MORPH ####[place] [address] Platelet mean volume (Bld) [Entitic vol] 9.4 fL Normal 6.4-10.5 [facility] ([place] Comment on above: Performed By: #### G FR, DIFF, CBC, MG, RFP, MORPH ####[place] [address] RBC 3.48 10 6/mcL Low 4.50-6.00 [facility] ([place] Comment on above: Performed By: #### G FR, DIFF, CBC, MG, RFP, MORPH ####[place] [id number] [address] [place] [address] WBC 16.7 10 3/mcL High 4.5-10.8 [facility] ([place] Comment on above: Performed By: #### G FR, DIFF, CBC, MG, RFP, MORPH ####[place] [id number] [address] [place] [address] LABORATORYOrdered By: Samra Guillaume on 04-27-2024 Blood Glucose Interventions Administered agent to decrease blood sugar (04/27/24 11:36 AM) [facility] Work Phone: LABORATORYOrdered By: SYSTEM [...] Comment on above: Interpretive Data: Alexis briones [employer] (CHEST, 1991, 102:[id number]) recommended therapeutic range for oral anticoagulant therapy is: LOW RISK: Prophylaxis of venous thrombosis INR: 2.0-3.0 Treatment of pulmonary embolism 2.0-3.0 Prevention of systemic embolism 2.0-3.0 HIGH RISK: Mechanical prosthetic valves 2.5-3.5 MGon 04-27-2024 Magnesium [Mass/Vol] 1.7 mg/dL Normal 1.6-2.4 [facility] ([place] Comment on above: Performed By: #### G FR, DIFF, CBC, MG, RFP, MORPH ####[place] [address] PROon 04-27-2024 INR Coag (PPP) [Relative time] 1.4 {INR} [facility] ([place] Comment on above: Result Comment: [employer] (CHEST, 1991, [id number])recommended therapeutic range for oral anticoagulant therapy is:LOW RISK: Prophylaxis of venous thrombosis INR: 2.0-3.0 Treatment of pulmonary embolism 2.0-3.0 Prevention of systemic embolism 2.0-3.0HIGH RISK: Mechanical prosthetic valves 2.5-3.5 Performed By: #### D IFF, PRO, CBC, MORPH ####[address] [address] PT Coag (PPP) [Time] 15.6 s High 9.0-14.4 [facility] ([place] Comment on above: Result Comment: Effe ctive 06/02/08, Protime results may be affected by some antibiotics (i.e. Ciprofloxacin, Azithromycin, Bactrim) which may potentiate the action of oral anticoagulants, with further increases in Protime/INR. Performed By: #### D IFF, PRO, CBC, MORPH ####[place] [address] RFPon 04-27-2024 Albumin Level 1.2 G/dL Low 3.2-4.8 [facility] ([place] Comment on above: Performed By: #### G FR, DIFF, CBC, MG, RFP, MORPH ####[place] [address] BUN/Creatinine Ratio 24.0 ratio High 10.0-22.0 [facility] ([place] Comment on above: Performed By: #### G FR, DIFF, CBC, MG, RFP, MORPH ####[place] [address] Calcium [Mass/Vol] 8.0 mg/dL Low 8.7-10.4 [facility] ([place] Comment on above: Performed By: #### G FR, DIFF, CBC, MG, RFP, MORPH ####[address] [address] Chloride [Moles/Vol] 107 mmol/L Normal 98-110 [facility] ([place] Comment on above: Performed By: #### G FR, DIFF, CBC, MG, RFP, MORPH ####[place] [id number] CO2 [Moles/Vol] 18 mmol/L Low 22-32 [facility] ([place] Comment on above: Performed By: #### G FR, DIFF, CBC, MG, RFP, MORPH ####[address] [address] Creatinine [Mass/Vol] 2.29 mg/dL High 0.60-1.40 [facility] ([place] Comment on above: Performed By: #### G FR, DIFF, CBC, MG, RFP, MORPH ####[address] [address] Electrolyte Balance 11.0 mEq/L Normal 4.0-15.0 [facility] ([place] Comment on above: Performed By: #### G FR, DIFF, CBC, MG, RFP, MORPH ####[place] [address] Glucose [Mass/Vol] 123 mg/dL High 70-110 [facility] ([place] Comment on above: Performed By: #### G FR, DIFF, CBC, MG, RFP, MORPH ####[place] [address] Phosphate [Mass/Vol] 4.7 mg/dL Normal 2.4-5.1 [facility] ([place] Comment on above: Result Comment: No te - New Reference Range in effect 20 Performed By: #### G FR, DIFF, CBC, MG, RFP, MORPH ####[place] [address] Potassium [Moles/Vol] 4.6 mmol/L Normal 3.5-5.0 [facility] ([place] Comment on above: Performed By: #### G FR, DIFF, CBC, MG, RFP, MORPH ####[address] [address] Sodium [Moles/Vol] 136 mmol/L Normal 136-145 [facility] ([place] Comment on above: Performed By: #### G FR, DIFF, CBC, MG, RFP, MORPH ####[address] [address] Urea nitrogen [Mass/Vol] 55.0 mg/dL High 8.0-22.0 [facility] [place] Comment on above: Performed By: #### G FR, DIFF, CBC, MG, RFP, MORPH ####[place] [address] XR CHEST 1 VIEWon 04-27-2024 XR CHEST 1 VIEW [facility] [place] .GFRon 04-26-2024 GFR 33 ml/min/1.73sqm [facility] ([place] Comment on above: Result Comment: GFR Population [...] #### C BC, BMP, MORPH, GFR, DIFF ####[place] [address] GFR Non- 27 ml/min/1.73sqm [facility] ([place] Comment on above: Result Comment: GFR Population [...] #### C BC, BMP, MORPH, GFR, DIFF ####[address] [address] .Manual Diffon 04-26-2024 Bands 2.0 % Normal 0.0-5.0 [facility] [place] Comment on above: Performed By: #### C BC, BMP, MORPH, GFR, DIFF ####[address] [address] Basophil %, Manual 0.0 % Normal 0.0-2.5 [facility] ([place] Comment on above: Performed By: #### C BC, BMP, MORPH, GFR, DIFF ####[address] [address] Basophil, Abs Manual 0.0 10 3/mcL Normal 0.0-0.3 [facility] ([place] Comment on above: Performed By: #### C BC, BMP, MORPH, GFR, DIFF ####[address] [address] Eosinophil %, Manual 2.0 % Normal 0.0-6.0 [facility] ([place] Comment on above: Performed By: #### C BC, BMP, MORPH, GFR, DIFF ####[address] [address] Eosinophil, Abs Manual 0.3 10 3/mcL Normal 0.0-0.7 [facility] ([place] Comment on above: Performed By: #### C BC, BMP, MORPH, GFR, DIFF ####[address] [address] Lymphocyte %, Manual 12.0 % Low 20.0-40.0 [facility] ([place] Comment on above: Performed By: #### C BC, BMP, MORPH, GFR, DIFF ####[address] [address] Lymphocyte, Abs Manual 2.1 10 3/mcL Normal 0.9-4.3 [facility] [place] Comment on above: Performed By: #### C BC, BMP, MORPH, GFR, DIFF ####[address] [address] Monocyte %, Manual 10.0 % Normal 2.0-13.0 [facility] ([place] Comment on above: Performed By: #### C BC, BMP, MORPH, GFR, DIFF ####[address] [address] Monocyte, Abs Manual 1.7 10 3/mcL High 0.1-1.4 [facility] ([place] Comment on above: Performed By: #### C BC, BMP, MORPH, GFR, DIFF ####[place] [address] Neutrophil %, Manual 74.0 % Normal 50.0-75.0 [facility] ([place] Comment on above: Performed By: #### C BC, BMP, MORPH, GFR, DIFF ####[place] [address] Neutrophil, Abs Manual 13.0 10 3/mcL High 2.3-8.1 [facility] [place] Comment on above: Performed By: #### C BC, BMP, MORPH, GFR, DIFF ####[place] [address] Nucleated RBC 0.0 /100 WBC [facility] [place] Comment on above: Performed By: #### C BC, BMP, MORPH, GFR, DIFF ####[place] [address] .Morphon 04-26-2024 Anisocytosis Ql (Bld) 1+ Normal [facility] [place] Comment on above: Performed By: #### C BC, BMP, MORPH, GFR, DIFF ####[place] [address] Platelet Estimate Slt Increased Normal [facility] ([place] Comment on above: Performed By: #### C BC, BMP, MORPH, GFR, DIFF ####[place] [address] Polychrom 1+ Normal [facility] [place] Comment on above: Performed By: #### C BC, BMP, MORPH, GFR, DIFF ####[place] [address] BMPon 04-26-2024 BUN/Creatinine Ratio 24.1 ratio High 10.0-22.0 [facility] ([place] Comment on above: Performed By: #### C BC, BMP, MORPH, GFR, DIFF ####[place] [address] Calcium [Mass/Vol] 7.7 mg/dL Low 8.7-10.4 [facility] ([place] Comment on above: Performed By: #### C BC, BMP, MORPH, GFR, DIFF ####[address] [address] Chloride [Moles/Vol] 107 mmol/L Normal 98-110 [facility] ([place] Comment on above: Performed By: #### C BC, BMP, MORPH, GFR, DIFF ####[address] [address] CO2 [Moles/Vol] 19 mmol/L Low 22-32 [facility] ([place] Comment on above: Performed By: #### C BC, BMP, MORPH, GFR, DIFF ####[address] [address] Creatinine [Mass/Vol] 2.57 mg/dL High 0.60-1.40 [facility] ([place]) Comment on above: Performed By: #### C BC, BMP, MORPH, GFR, DIFF ####[address] [address] Electrolyte Balance 9.0 mEq/L Normal 4.0-15.0 [facility] ([place]) Comment on above: Performed By: #### C BC, BMP, MORPH, GFR, DIFF ####[address] [address] Glucose [Mass/Vol] 138 mg/dL High 70-110 [facility] ([place]) Comment on above: Performed By: #### C BC, BMP, MORPH, GFR, DIFF ####[address] [address] Potassium [Moles/Vol] 5.0 mmol/L Normal 3.5-5.0 [facility] ([place] Comment on above: Performed By: #### C BC, BMP, MORPH, GFR, DIFF ####[address] [address] Sodium [Moles/Vol] 135 mmol/L Low 136-145 [facility] ([place]) Comment on above: Performed By: #### C BC, BMP, MORPH, GFR, DIFF ####[place] [address] Urea nitrogen [Mass/Vol] 62.0 mg/dL High 8.0-22.0 [facility] ([place] Comment on above: Performed By: #### C BC, BMP, MORPH, GFR, DIFF ####[place] [address] CBCon 04-26-2024 Erythrocyte distribution width (RBC) [Ratio] 16.9 % High 11.5-15.5 [facility] ([place] Comment on above: Performed By: #### C BC, BMP, MORPH, GFR, DIFF ####[place] [address] Hematocrit (Bld) [Volume fraction] 27.5 % Low 40.0-52.0 [facility] ([place] Comment on above: Performed By: #### C BC, BMP, MORPH, GFR, DIFF ####[place] [address] Hgb 8.9 G/dL Low 13.0-17.5 [facility] ([place] Comment on above: Performed By: #### C BC, BMP, MORPH, GFR, DIFF ####[place] [address] MCH (RBC) [Entitic mass] 26.5 pg Low 27.0-33.0 [facility] ([place] Comment on above: Performed By: #### C BC, BMP, MORPH, GFR, DIFF ####[place] [address] MCHC 32.3 G/dL Normal 32.0-36.0 [facility] ([place] Comment on above: Performed By: #### C BC, BMP, MORPH, GFR, DIFF ####[place] [address] MCV (RBC) [Entitic vol] 82.0 fL Normal 81.0-100.0 A [facility] ([place]) Comment on above: Performed By: #### C BC, BMP, MORPH, GFR, DIFF ####[place] [id number] Platelet 517 10 3/mcL High 150-450 [facility] ([place] Comment on above: Performed By: #### C BC, BMP, MORPH, GFR, DIFF ####[address] [address] Platelet mean volume (Bld) [Entitic vol] 10.3 fL Normal 6.4-10.5 [facility] ([place]) Comment on above: Performed By: #### C BC, BMP, MORPH, GFR, DIFF ####[address] [address] RBC 3.36 10 6/mcL Low 4.50-6.00 [facility] ([place]) Comment on above: Performed By: #### C BC, BMP, MORPH, GFR, DIFF ####[address] [address] WBC 17.2 10 3/mcL High 4.5-10.8 [facility] ([place] Comment on above: Performed By: #### C BC, BMP, MORPH, GFR, DIFF ####[address] [address] LABORATORYOrdered By: SYSTEM SYSTEM on 04-26-2024 Anisocytosis [...] SS .GFRon 04-25-2024 GFR 33 ml/min/1.73sqm Normal [facility] ([place] Comment on above: Result Comment: GFR Population [...] CAION, BMP, FERR, DIFF, GFR, CBC, FES ####[place] [address] GFR Non- 27 ml/min/1.73sqm Normal [facility] ([place]) Comment on above: Result Comment: [...] CAION, BMP, FERR, DIFF, GFR, CBC, FES ####[place] [address] .Manual Diffon 04-25-2024 Basophil %, Manual 0.0 % Normal 0.0-2.5 [facility] ([place] Comment on above: Performed By: #### M ORPH, CAION, BMP, FERR, DIFF, GFR, CBC, FES ####[place] [address] Basophil, Abs Manual 0.0 10 3/mcL Normal 0.0-0.3 [facility] ([place] Comment on above: Performed By: #### M ORPH, CAION, BMP, FERR, DIFF, GFR, CBC, FES ####[place] [address] Eosinophil %, Manual 0.0 % Normal 0.0-6.0 [facility] ([place]) Comment on above: Performed By: #### M ORPH, CAION, BMP, FERR, DIFF, GFR, CBC, FES ####[place] [address] Eosinophil, Abs Manual 0.0 10 3/mcL Normal 0.0-0.7 [facility] ([place] Comment on above: Performed By: #### M ORPH, CAION, BMP, FERR, DIFF, GFR, CBC, FES ####[place] [address] Lymphocyte %, Manual 12.0 % Low 20.0-40.0 [facility] ([place] Comment on above: Performed By: #### M ORPH, CAION, BMP, FERR, DIFF, GFR, CBC, FES ####[place] [id number] Lymphocyte, Abs Manual 2.1 10 3/mcL Normal 0.9-4.3 [facility] ([place] Comment on above: Performed By: #### M ORPH, CAION, BMP, FERR, DIFF, GFR, CBC, FES ####[place] [address] Monocyte %, Manual 3.0 % Normal 2.0-13.0 [facility] ([place] Comment on above: Performed By: #### M ORPH, CAION, BMP, FERR, DIFF, GFR, CBC, FES ####[place] [address] Monocyte, Abs Manual 0.5 10 3/mcL Normal 0.1-1.4 [facility] ([place] Comment on above: Performed By: #### M ORPH, CAION, BMP, FERR, DIFF, GFR, CBC, FES ####[place] [address] Neutrophil %, Manual 85.0 % High 50.0-75.0 [facility] ([place] Comment on above: Performed By: #### M ORPH, CAION, BMP, FERR, DIFF, GFR, CBC, FES ####[place] [id number] Neutrophil, Abs Manual 14.7 10 3/mcL High 2.3-8.1 [facility] ([place] Comment on above: Performed By: #### M ORPH, CAION, BMP, FERR, DIFF, GFR, CBC, FES ####[place] [address] Nucleated RBC 0.0 /100 WBC Normal [facility] ([place] Comment on above: Performed By: #### M ORPH, CAION, BMP, FERR, DIFF, GFR, CBC, FES ####[place] [address] .Morphon 04-25-2024 Anisocytosis Ql (Bld) 1+ Normal [facility] ([place] Comment on above: Performed By: #### M ORPH, CAION, BMP, FERR, DIFF, GFR, CBC, FES ####[address] [address] Hypochrom 1+ Normal [facility] ([place] Comment on above: Performed By: #### M ORMERLENE, CAION, BMP, FERR, DIFF, GFR, CBC, FES ####[address] [address] Large Platelets Few Normal [facility] ([place] Comment on above: Performed By: #### M ORPH, CAION, BMP, FERR, DIFF, GFR, CBC, FES ####[address] [address] Platelet Estimate Normal Normal [facility] ([place] Comment on above: Performed By: #### M ORMERLENE, ROXANAON, BMP, FERR, DIFF, GFR, CBC, FES ####[address] [address] Polychrom 1+ Normal [facility] ([place] Comment on above: Performed By: #### M ORMERLENE, CAION, BMP, FERR, DIFF, GFR, CBC, FES ####[address] [address] APTTon 04-25-2024 aPTT Coag (Bld) [Time] 35.9 s High 25.0-35.0 [facility] ([place] Comment on above: Result Comment: For Heparin anticoagulation therapy, the recommendedtherapeutic range is: 54-77 seconds (APTT Correlationwith Anti-Xa therapeutic range of 0.3-0.7 units/ml).PLEASE REFERENCE THE PHARMACY PROTOCOL FOR DOSING. Heparin dose (APTT) Heparin IV Normal [facility] ([place]) BMPon 04-25-2024 BUN/Creatinine Ratio 23.3 ratio High 10.0-22.0 [facility] ([place] Comment on above: Performed By: #### M ORPH, CAION, BMP, FERR, DIFF, GFR, CBC, FES ####[address] [address] Calcium [Mass/Vol] 7.9 mg/dL Low 8.7-10.4 [facility] ([place]) Comment on above: Performed By: #### M ORPH, CAION, BMP, FERR, DIFF, GFR, CBC, FES ####[address] [address] Chloride [Moles/Vol] 106 mmol/L Normal 98-110 [facility] ([place] Comment on above: Performed By: #### M ORPH, CAION, BMP, FERR, DIFF, GFR, CBC, FES ####[address] [address] CO2 [Moles/Vol] 16 mmol/L Low 22-32 [facility] ([place] Comment on above: Performed By: #### M ORPH, CAION, BMP, FERR, DIFF, GFR, CBC, FES ####[address] [address] Creatinine [Mass/Vol] 2.58 mg/dL High 0.60-1.40 [facility] ([place] Comment on above: Performed By: #### M ORPH, CAION, BMP, FERR, DIFF, GFR, CBC, FES ####[place] [address] Electrolyte Balance 13.0 mEq/L Normal 4.0-15.0 [facility] ([place] Comment on above: Performed By: #### M ORPH, CAION, BMP, FERR, DIFF, GFR, CBC, FES ####[address] [address] Glucose [Mass/Vol] 119 mg/dL High 70-110 [facility] ([place]) Comment on above: Performed By: #### M ORPH, CAION, BMP, FERR, DIFF, GFR, CBC, FES ####[address] [address] Potassium [Moles/Vol] 4.5 mmol/L Normal 3.5-5.0 [facility] ([place] Comment on above: Performed By: #### M ORPH, CAION, BMP, FERR, DIFF, GFR, CBC, FES ####[address] [address] Sodium [Moles/Vol] 135 mmol/L Low 136-145 [facility] ([place]) Comment on above: Performed By: #### M ORPH, CAION, BMP, FERR, DIFF, GFR, CBC, FES ####[place] [address] Urea nitrogen [Mass/Vol] 60.0 mg/dL High 8.0-22.0 [facility] ([place] Comment on above: Performed By: #### M ORPH, CAION, BMP, FERR, DIFF, GFR, CBC, FES ####[place] [address] CAIONon 04-25-2024 Calcium Ionized 1.06 mmol/L Low 1.12-1.32 [facility] ([place] Comment on above: Result Comment: Spec imen volume is less than recommended minimum for accurate testing. interpret with caution. Performed By: #### M ORPH, CAION, BMP, FERR, DIFF, GFR, CBC, FES ####[place] [address] CBCon 04-25-2024 Erythrocyte distribution width (RBC) [Ratio] 16.6 % High 11.5-15.5 [facility] ([place] Comment on above: Performed By: #### M ORPH, CAION, BMP, FERR, DIFF, GFR, CBC, FES ####[place] [address] Hematocrit (Bld) [Volume fraction] 23.9 % Low 40.0-52.0 [facility] ([place] Comment on above: Performed By: #### M ORPH, CAION, BMP, FERR, DIFF, GFR, CBC, FES ####[place] [address] Hgb 7.9 G/dL Low 13.0-17.5 [facility] ([place] Comment on above: Performed By: #### M ORPH, CAION, BMP, FERR, DIFF, GFR, CBC, FES ####[place] [address] MCH (RBC) [Entitic mass] 27.0 pg Normal 27.0-33.0 [facility] ([place] Comment on above: Performed By: #### M ORPH, CAION, BMP, FERR, DIFF, GFR, CBC, FES ####[place] [address] MCHC 33.2 G/dL Normal 32.0-36.0 [facility] ([place] Comment on above: Performed By: #### M ORPH, CAION, BMP, FERR, DIFF, GFR, CBC, FES ####[place] [address] MCV (RBC) [Entitic vol] 81.3 fL Normal 81.0-100.0 A [facility] ([place] Comment on above: Performed By: #### M ORPH, CAION, BMP, FERR, DIFF, GFR, CBC, FES ####[place] [address] Platelet 445 10 3/mcL Normal 150-450 [facility] ([place] Comment on above: Performed By: #### M ORPH, CAION, BMP, FERR, DIFF, GFR, CBC, FES ####[place] [address] Platelet mean volume (Bld) [Entitic vol] 9.8 fL Normal 6.4-10.5 [facility] ([place] Comment on above: Performed By: #### M ORPH, CAION, BMP, FERR, DIFF, GFR, CBC, FES ####[place] [address] RBC 2.94 10 6/mcL Low 4.50-6.00 [facility] ([place] Comment on above: Performed By: #### M ORPH, CAION, BMP, FERR, DIFF, GFR, CBC, FES ####[place] [address] WBC 17.4 10 3/mcL High 4.5-10.8 [facility] ([place] Comment on above: Performed By: #### M ORPH, CAION, BMP, FERR, DIFF, GFR, CBC, FES ####[place] [address] Partha 04-25-2024 Ferritin [Mass/Vol] 721.1 ng/mL High 26.0-388.0 [facility] ([place] Comment on above: Performed By: #### M ORPH, CAION, BMP, FERR, DIFF, GFR, CBC, FES ####[place] [address] FESon 04-25-2024 Iron [Mass/Vol] 30 ug/dL Low 65-175 [facility] ([place] Comment on above: Performed By: #### M ORPH, CAION, BMP, FERR, DIFF, GFR, CBC, FES ####[place] [address] Iron Sat 17 % Normal [facility] ([place] Comment on above: Performed By: #### M ORPH, CAION, BMP, FERR, DIFF, GFR, CBC, FES ####[place] [address] TIBC 180 mcg/dL Low 250-500 [facility] ([place] Comment on above: Performed By: #### M ORPH, CAION, BMP, FERR, DIFF, GFR, CBC, FES ####[place] [address] HHon 04-25-2024 Hematocrit (Bld) [Volume fraction] 28.6 % Low 40.0-52.0 [facility] ([place] Comment on above: Performed By: #### H H ####[place] [address] Hgb 9.1 G/dL Low 13.0-17.5 [facility] ([place] Comment on above: Performed By: #### H H ####[place] [address] LABORATORYOrdered By: Roosevelt Peterson on 04-25-2024 BE [...] 04-25-2024 BE Venous -7.8 mmol/L Low -3.0-3.0 [facility] ([place] Comment on above: Performed By: #### V BG ####[address] [address] CO2 [Moles/Vol] 18.1 mmol/L Low 22.0-32.0 [facility] ([place] Comment on above: Performed By: #### V BG ####[address] [address] HCO3 (Bld) [Moles/Vol] 17.1 mmol/L Low 21.0-30.0 A [facility] ([place] Comment on above: Performed By: #### V BG ####[place] [address] Oxygen saturation in Blood 94.0 % High 70.0-75.0 [facility] ([place] Comment on above: Performed By: #### V BG ####[place] [address] pCO2 Giuliano 32.3 mmHg Low 41.0-51.0 [facility] ([place] Comment on above: Performed By: #### V BG ####[place] [address] pH Venous 7.341 Low 7.380-7.46 0 [facility] ([place] Comment on above: Performed By: #### V BG ####[place] [address] pO2 Giuliano 77.1 mmHg High 35.0-40.0 [facility] ([place] Comment on above: Performed By: #### V BG ####[place] [address] .GFRon 04-24-2024 GFR 32 ml/min/1.73sqm Normal [facility] ([place] Comment on above: Result Comment: GFR Population [...] BC, GFR, DIFF, MORPH, BMP, PHOS, MG ####[place] [address] GFR Non- 26 ml/min/1.73sqm Normal [facility] ([place] Comment on above: Result Comment: GFR Population [...] BC, GFR, DIFF, MORPH, BMP, PHOS, MG ####[place] [address] .Manual Diffon 04-24-2024 Bands 1.0 % Normal 0.0-5.0 [facility] ([place] Comment on above: Performed By: #### M ORPH, CBC, DIFF ####[place] [address] Basophil %, Manual 0.0 % Normal 0.0-2.5 [facility] ([place] Comment on above: Performed By: #### M ORPH, CBC, DIFF ####[place] [address] Basophil, Abs Manual 0.0 10 3/mcL Normal 0.0-0.3 [facility] ([place] Comment on above: Performed By: #### M ORPH, CBC, DIFF ####[address] [address] Eosinophil %, Manual 2.0 % Normal 0.0-6.0 [facility] ([place] Comment on above: Performed By: #### M ORPH, CBC, DIFF ####[place] [address] Eosinophil, Abs Manual 0.3 10 3/mcL Normal 0.0-0.7 [facility] ([place] Comment on above: Performed By: #### M ORPH, CBC, DIFF ####[place] [address] Lymphocyte %, Manual 15.0 % Low 20.0-40.0 [facility] ([place] Comment on above: Performed By: #### M ORPH, CBC, DIFF ####[address] [address] Lymphocyte, Abs Manual 2.7 10 3/mcL Normal 0.9-4.3 [facility] ([place] Comment on above: Performed By: #### M ORPH, CBC, DIFF ####[address] [address] Monocyte %, Manual 10.0 % Normal 2.0-13.0 [facility] ([place] Comment on above: Performed By: #### M ORPH, CBC, DIFF ####[address] [address] Monocyte, Abs Manual 1.8 10 3/mcL High 0.1-1.4 [facility] ([place] Comment on above: Performed By: #### M ORPH, CBC, DIFF ####[address] [address] Myelocyte 2.0 % Normal [facility] ([place] Comment on above: Performed By: #### M ORPH, CBC, DIFF ####[address] [address] Neutrophil %, Manual 70.0 % Normal 50.0-75.0 [facility] ([place] Comment on above: Performed By: #### M ORPH, CBC, DIFF ####[address] [address] Neutrophil, Abs Manual 12.7 10 3/mcL High 2.3-8.1 [facility] ([place] Comment on above: Performed By: #### M ORPH, CBC, DIFF ####[address] [address] Nucleated RBC 0.0 /100 WBC Normal [facility] ([place] Comment on above: Performed By: #### M ORPH, CBC, DIFF ####[address] [address] Bands 1.0 % Normal 0.0-5.0 [facility] ([place] Comment on above: Performed By: #### D IFF, CBC, MORPH, PRO ####[address] [address] Basophil %, Manual 0.0 % Normal 0.0-2.5 [facility] ([place] Comment on above: Performed By: #### D IFF, CBC, MORPH, PRO ####[address] [address] Basophil, Abs Manual 0.0 10 3/mcL Normal 0.0-0.3 [facility] ([place] Comment on above: Performed By: #### D IFF, CBC, MORPH, PRO ####[address] [address] Eosinophil %, Manual 4.0 % Normal 0.0-6.0 [facility] ([place] Comment on above: Performed By: #### D IFF, CBC, MORPH, PRO ####[address] [address] Eosinophil, Abs Manual 0.9 10 3/mcL High 0.0-0.7 [facility] ([place] Comment on above: Performed By: #### D IFF, CBC, MORPH, PRO ####[address] [address] Lymphocyte %, Manual 11.0 % Low 20.0-40.0 [facility] ([place] Comment on above: Performed By: #### D IFF, CBC, MORPH, PRO ####[address] [address] Lymphocyte, Abs Manual 2.5 10 3/mcL Normal 0.9-4.3 [facility] [place] Comment on above: Performed By: #### D IFF, CBC, MORPH, PRO ####[address] [address] Monocyte %, Manual 3.0 % Normal 2.0-13.0 [facility] ([place] Comment on above: Performed By: #### D IFF, CBC, MORPH, PRO ####[address] [address] Monocyte, Abs Manual 0.7 10 3/mcL Normal 0.1-1.4 [facility] ([place] Comment on above: Performed By: #### D IFF, CBC, MORPH, PRO ####[address] [address] Myelocyte 1.0 % Normal [facility] ([place] Comment on above: Performed By: #### D IFF, CBC, MORPH, PRO ####[address] [address] Neutrophil %, Manual 80.0 % High 50.0-75.0 [facility] ([place] Comment on above: Performed By: #### D IFF, CBC, MORPH, PRO ####[address] [address] Neutrophil, Abs Manual 18.3 10 3/mcL High 2.3-8.1 [facility] ([place] Comment on above: Performed By: #### D IFF, CBC, MORPH, PRO ####[address] [address] Nucleated RBC 0.0 /100 WBC Normal [facility] [place] Comment on above: Performed By: #### D IFF, CBC, MORPH, PRO ####[address] [address] Bands 5.0 % Normal 0.0-5.0 [facility] [place] Comment on above: Performed By: #### C BC, GFR, DIFF, MORPH, BMP, PHOS, MG ####[address] [address] Basophil %, Manual 0.0 % Normal 0.0-2.5 [facility] ([place] Comment on above: Performed By: #### C BC, GFR, DIFF, MORPH, BMP, PHOS, MG ####[address] [address] Basophil, Abs Manual 0.0 10 3/mcL Normal 0.0-0.3 [facility] ([place] Comment on above: Performed By: #### C BC, GFR, DIFF, MORPH, BMP, PHOS, MG ####[address] [address] Eosinophil %, Manual 2.0 % Normal 0.0-6.0 [facility] ([place] Comment on above: Performed By: #### C BC, GFR, DIFF, MORPH, BMP, PHOS, MG ####[address] [address] Eosinophil, Abs Manual 0.4 10 3/mcL Normal 0.0-0.7 [facility] ([place]) Comment on above: Performed By: #### C BC, GFR, DIFF, MORPH, BMP, PHOS, MG ####[address] [address] Lymphocyte %, Manual 12.0 % Low 20.0-40.0 [facility] [place] Comment on above: Performed By: #### C BC, GFR, DIFF, MORPH, BMP, PHOS, MG ####[address] [address] Lymphocyte, Abs Manual 2.3 10 3/mcL Normal 0.9-4.3 [facility] [place] Comment on above: Performed By: #### C BC, GFR, DIFF, MORPH, BMP, PHOS, MG ####[address] [address] Metamyelocyte 3.0 % Normal [facility] ([place] Comment on above: Performed By: #### C BC, GFR, DIFF, MORPH, BMP, PHOS, MG ####[address] [address] Monocyte %, Manual 7.0 % Normal 2.0-13.0 [facility] ([place] Comment on above: Performed By: #### C BC, GFR, DIFF, MORPH, BMP, PHOS, MG ####[address] [address] Monocyte, Abs Manual 1.4 10 3/mcL Normal 0.1-1.4 [facility] ([place] Comment on above: Performed By: #### C BC, GFR, DIFF, MORPH, BMP, PHOS, MG ####[address] [address] Neutrophil %, Manual 71.0 % Normal 50.0-75.0 [facility] ([place] Comment on above: Performed By: #### C BC, GFR, DIFF, MORPH, BMP, PHOS, MG ####[place] [address] Neutrophil, Abs Manual 14.8 10 3/mcL High 2.3-8.1 [facility] [place] Comment on above: Performed By: #### C BC, GFR, DIFF, MORPH, BMP, PHOS, MG ####[place] [address] Nucleated RBC 0.0 /100 WBC Normal [facility] [place] Comment on above: Performed By: #### C BC, GFR, DIFF, MORPH, BMP, PHOS, MG ####[place] [address] .Morphon 04-24-2024 Anisocytosis Ql (Bld) 1+ Normal [facility] ([place] Comment on above: Performed By: #### M ORPH, CBC, DIFF ####[place] [address] Platelet Estimate Slt Increased Normal [facility] ([place] Comment on above: Performed By: #### M ORPH, CBC, DIFF ####[place] [address] Toxic Gran 1+ Normal [facility] ([place] Comment on above: Performed By: #### M ORPH, CBC, DIFF ####[place] [address] Anisocytosis Ql (Bld) 1+ Normal [facility] ([place] Comment on above: Performed By: #### D IFF, CBC, MORPH, PRO ####[place] [address] Large Platelets Few Normal [facility] ([place] Comment on above: Performed By: #### D IFF, CBC, MORPH, PRO ####[place] [address] Platelet Estimate Slt Increased Normal [facility] ([place] Comment on above: Performed By: #### D IFF, CBC, MORPH, PRO ####[address] [address] Polychrom 1+ Normal [facility] ([place] Comment on above: Performed By: #### D IFF, CBC, MORPH, PRO ####[place] [address] Toxic Gran 1+ Normal [facility] ([place] Comment on above: Performed By: #### D IFF, CBC, MORPH, PRO ####[place] [address] RBC morphology finding Nom (Bld) Normal Normal [facility] ([place] Comment on above: Performed By: #### C BC, GFR, DIFF, MORPH, BMP, PHOS, MG ####[place] [address] Platelet Estimate Normal Normal [facility] ([place] Comment on above: Performed By: #### C BC, GFR, DIFF, MORPH, BMP, PHOS, MG ####[place] [address] APTTon 04-24-2024 aPTT Coag (Bld) [Time] 34.0 s Normal 25.0-35.0 [facility] [place] Comment on above: Result Comment: For Heparin anticoagulation therapy, the recommendedtherapeutic range is: 54-77 seconds (APTT Correlationwith Anti-Xa therapeutic range of 0.3-0.7 units/ml).PLEASE REFERENCE THE PHARMACY PROTOCOL FOR DOSING. Heparin dose (APTT) Heparin IV Normal [facility] ([place]) aPTT Coag (Bld) [Time] 36.5 s High 25.0-35.0 [facility] ([place] Comment on above: Result Comment: Spec imen hemolyzed. Results may be affected.For Heparin anticoagulation therapy, the recommendedtherapeutic range is: 54-77 seconds (APTT Correlationwith Anti-Xa therapeutic range of 0.3-0.7 units/ml).PLEASE REFERENCE THE PHARMACY PROTOCOL FOR DOSING. Performed By: #### D IFF, CBC, MORPH, PRO ####[place] [address] Heparin dose (APTT) Heparin SubQ Normal [facility] ([place] Comment on above: Performed By: #### D IFF, CBC, MORPH, PRO ####[address] [address] BMPon 04-24-2024 BUN/Creatinine Ratio 26.3 ratio High 10.0-22.0 [facility] ([place] Comment on above: Performed By: #### C BC, GFR, DIFF, MORPH, BMP, PHOS, MG ####[place] [address] Calcium [Mass/Vol] 7.8 mg/dL Low 8.7-10.4 [facility] ([place] Comment on above: Performed By: #### C BC, GFR, DIFF, MORPH, BMP, PHOS, MG ####[place] [address] Chloride [Moles/Vol] 104 mmol/L Normal 98-110 [facility] ([place] Comment on above: Performed By: #### C BC, GFR, DIFF, MORPH, BMP, PHOS, MG ####[place] [address] CO2 [Moles/Vol] 20 mmol/L Low 22-32 [facility] [place] Comment on above: Performed By: #### C BC, GFR, DIFF, MORPH, BMP, PHOS, MG ####[place] [address] Creatinine [Mass/Vol] 2.62 mg/dL High 0.60-1.40 [facility] ([place] Comment on above: Performed By: #### C BC, GFR, DIFF, MORPH, BMP, PHOS, MG ####[place] [address] Electrolyte Balance 11.0 mEq/L Normal 4.0-15.0 [facility] ([place] Comment on above: Performed By: #### C BC, GFR, DIFF, MORPH, BMP, PHOS, MG ####[place] [address] Glucose [Mass/Vol] 116 mg/dL High 70-110 [facility] ([place] Comment on above: Performed By: #### C BC, GFR, DIFF, MORPH, BMP, PHOS, MG ####[place] [address] Potassium [Moles/Vol] 4.7 mmol/L Normal 3.5-5.0 [facility] ([place] Comment on above: Performed By: #### C BC, GFR, DIFF, MORPH, BMP, PHOS, MG ####[place] [address] Sodium [Moles/Vol] 135 mmol/L Low 136-145 [facility] ([place]) Comment on above: Performed By: #### C BC, GFR, DIFF, MORPH, BMP, PHOS, MG ####[place] [address] Urea nitrogen [Mass/Vol] 69.0 mg/dL High 8.0-22.0 [facility] ([place] Comment on above: Performed By: #### C BC, GFR, DIFF, MORPH, BMP, PHOS, MG ####[place] [address] CBCon 04-24-2024 Erythrocyte distribution width (RBC) [Ratio] 16.8 % High 11.5-15.5 [facility] ([place] Comment on above: Performed By: #### M ORPH, CBC, DIFF ####[place] [address] Hematocrit (Bld) [Volume fraction] 26.6 % Low 40.0-52.0 [facility] ([place] Comment on above: Performed By: #### M ORPH, CBC, DIFF ####[place] [address] Hgb 8.4 G/dL Low 13.0-17.5 [facility] ([place] Comment on above: Performed By: #### M ORPH, CBC, DIFF ####[place] [address] MCH (RBC) [Entitic mass] 25.6 pg Low 27.0-33.0 [facility] ([place] Comment on above: Performed By: #### M ORPH, CBC, DIFF ####[address] [address] MCHC 31.5 G/dL Low 32.0-36.0 [facility] ([place] Comment on above: Performed By: #### M ORPH, CBC, DIFF ####[address] [address] MCV (RBC) [Entitic vol] 81.5 fL Normal 81.0-100.0 A [facility] ([place]) Comment on above: Performed By: #### M ORPH, CBC, DIFF ####[address] [address] Platelet 458 10 3/mcL High 150-450 [facility] ([place] Comment on above: Performed By: #### M ORPH, CBC, DIFF ####[place] [address] Platelet mean volume (Bld) [Entitic vol] 10.0 fL Normal 6.4-10.5 [facility] ([place] Comment on above: Performed By: #### M ORPH, CBC, DIFF ####[place] [address] RBC 3.26 10 6/mcL Low 4.50-6.00 [facility] ([place] Comment on above: Performed By: #### M ORPH, CBC, DIFF ####[place] [address] WBC 17.9 10 3/mcL High 4.5-10.8 [facility] ([place] Comment on above: Performed By: #### M ORPH, CBC, DIFF ####[address] [address] Erythrocyte distribution width (RBC) [Ratio] 16.7 % High 11.5-15.5 [facility] ([place] Comment on above: Performed By: #### D IFF, CBC, MORPH, PRO ####[address] [address] Hematocrit (Bld) [Volume fraction] 23.5 % Low 40.0-52.0 [facility] ([place] Comment on above: Performed By: #### D IFF, CBC, MORPH, PRO ####[place] [address] Hgb 7.6 G/dL Low 13.0-17.5 [facility] ([place] Comment on above: Performed By: #### D IFF, CBC, MORPH, PRO ####[place] [address] MCH (RBC) [Entitic mass] 26.1 pg Low 27.0-33.0 [facility] ([place] Comment on above: Performed By: #### D IFF, CBC, MORPH, PRO ####[place] [address] MCHC 32.2 G/dL Normal 32.0-36.0 [facility] ([place] Comment on above: Performed By: #### D IFF, CBC, MORPH, PRO ####[place] [address] MCV (RBC) [Entitic vol] 81.1 fL Normal 81.0-100.0 A [facility] ([place] Comment on above: Performed By: #### D IFF, CBC, MORPH, PRO ####[place] [address] Platelet 495 10 3/mcL High 150-450 [facility] ([place] Comment on above: Performed By: #### D IFF, CBC, MORPH, PRO ####[place] [address] Platelet mean volume (Bld) [Entitic vol] 9.7 fL Normal 6.4-10.5 [facility] ([place] Comment on above: Performed By: #### D IFF, CBC, MORPH, PRO ####[place] [address] RBC 2.90 10 6/mcL Low 4.50-6.00 [facility] ([place] Comment on above: Performed By: #### D IFF, CBC, MORPH, PRO ####[place] [address] WBC 22.6 10 3/mcL High 4.5-10.8 [facility] ([place] Comment on above: Performed By: #### D IFF, CBC, MORPH, PRO ####[place] [address] Erythrocyte distribution width (RBC) [Ratio] 16.3 % High 11.5-15.5 [facility] ([place] Comment on above: Performed By: #### C BC, GFR, DIFF, MORPH, BMP, PHOS, MG ####[place] [address] Hematocrit (Bld) [Volume fraction] 26.0 % Low 40.0-52.0 [facility] ([place] Comment on above: Performed By: #### C BC, GFR, DIFF, MORPH, BMP, PHOS, MG ####[address] [address] Hgb 8.4 G/dL Low 13.0-17.5 [facility] ([place] Comment on above: Performed By: #### C BC, GFR, DIFF, MORPH, BMP, PHOS, MG ####[address] [address] MCH (RBC) [Entitic mass] 26.3 pg Low 27.0-33.0 [facility] ([place] Comment on above: Performed By: #### C BC, GFR, DIFF, MORPH, BMP, PHOS, MG ####[place] [address] MCHC 32.5 G/dL Normal 32.0-36.0 [facility] ([place] Comment on above: Performed By: #### C BC, GFR, DIFF, MORPH, BMP, PHOS, MG ####[place] [address] MCV (RBC) [Entitic vol] 81.0 fL Normal 81.0-100.0 A [facility] ([place] Comment on above: Performed By: #### C BC, GFR, DIFF, MORPH, BMP, PHOS, MG ####[place] [address] Platelet 433 10 3/mcL Normal 150-450 [facility] ([place] Comment on above: Performed By: #### C BC, GFR, DIFF, MORPH, BMP, PHOS, MG ####[place] [id number] [place] [address] Platelet mean volume (Bld) [Entitic vol] 9.9 fL Normal 6.4-10.5 [facility] ([place] Comment on above: Performed By: #### C BC, GFR, DIFF, MORPH, BMP, PHOS, MG ####[address] [address] RBC 3.21 10 6/mcL Low 4.50-6.00 [facility] ([place] Comment on above: Performed By: #### C BC, GFR, DIFF, MORPH, BMP, PHOS, MG ####[place] [id number] [place] [address] WBC 19.6 10 3/mcL High 4.5-10.8 [facility] ([place] Comment on above: Performed By: #### C BC, GFR, DIFF, MORPH, BMP, PHOS, MG ####[address] [address] [address] ABDOMEN/PELVIS W/O CONTRA STon 04-24-2024 CT ABDOMEN/PELVIS W/O CONTRAST [facility] ([place]) CT THORAX W/O CONTRASTon CT THORAX W/O CONTRAST Normal [facility]) LABORATORYOrdered By: SYSTEM SYSTEM on 04-24-2024 Myelocytes/100 [...] International Ratio 1.4 ratio Invalid Interpretation Code HemHIub Comment on above: Result Comment: Spec imen hemolyzed. Results may be affected. Interpretive Data: Alexis briones [employer] (CHEST, 1991, 102:312S-25S) recommended therapeutic range for oral anticoagulant therapy is: LOW RISK: Prophylaxis of venous thrombosis INR: 2.0-3.0 Treatment of pulmonary embolism 2.0-3.0 Prevention of systemic embolism 2.0-3.0 HIGH RISK: Mechanical prosthetic valves 2.5-3.5 MGon 04-24-2024 Magnesium [Mass/Vol] 2.1 mg/dL Normal 1.6-2.4 [facility] ([place]) Comment on above: Performed By: #### C BC, GFR, DIFF, MORPH, BMP, PHOS, MG ####[address] [address] PHOSon 04-24-2024 Phosphate [Mass/Vol] 5.0 mg/dL Normal 2.4-5.1 [facility] ([place]) Comment on above: Result Comment: No te - New Reference Range in effect 20 Performed By: #### C BC, GFR, DIFF, MORPH, BMP, PHOS, MG ####[place] [id number] [place] [address] PROon 04-24-2024 INR Coag (PPP) [Relative time] 1.4 {INR} Normal [facility] ([place] Comment on above: Result Comment: Spec imen hemolyzed. Results may be affected.[employer] (CHEST, 1991, 102:[id number])recommended therapeutic range for oral anticoagulant therapy is:LOW RISK: Prophylaxis of venous thrombosis INR: 2.0-3.0 Treatment of pulmonary embolism 2.0-3.0 Prevention of systemic embolism 2.0-3.0HIGH RISK: Mechanical prosthetic valves 2.5-3.5 Performed By: #### D IFF, CBC, MORPH, PRO ####[address] [address] PT Coag (PPP) [Time] 15.6 s High 9.0-14.4 [facility] ([place]) Comment on above: Result Comment: Spec imen hemolyzed. Results may be affected.Effective 06/02/08, Protime results may be affected by some antibiotics (i.e. Ciprofloxacin, Azithromycin, Bactrim) which may potentiate the action of oral anticoagulants, with further increases in Protime/INR. Performed By: #### D IFF, CBC, MORPH, PRO ####[address] [address] .GFRon 04-23-2024 GFR Non- 26 ml/min/1.73sqm [facility] ([place] Comment on above: Result Comment: GFR Population [...] MORPH, MG, DIFF, CBC, CAION, PHOS, BMP ####[address] [address] GFR 32 ml/min/1.73sqm Normal [facility] ([place] Comment on above: Result Comment: GFR Population [...] MORPH, MG, DIFF, CBC, CAION, PHOS, BMP ####[place] [address] .Manual Diffon 04-23-2024 Bands 9.0 % High 0.0-5.0 [facility] ([place] Comment on above: Performed By: #### G FR, MORPH, MG, DIFF, CBC, CAION, PHOS, BMP ####[place] [address] Basophil %, Manual 0.0 % Normal 0.0-2.5 [facility] ([place]) Comment on above: Performed By: #### G FR, MORPH, MG, DIFF, CBC, CAION, PHOS, BMP ####[place] [address] Basophil, Abs Manual 0.0 10 3/mcL Normal 0.0-0.3 [facility] ([place]) Comment on above: Performed By: #### G FR, MORPH, MG, DIFF, CBC, CAION, PHOS, BMP ####[place] [address] Eosinophil %, Manual 0.0 % Normal 0.0-6.0 [facility] ([place]) Comment on above: Performed By: #### G FR, MORPH, MG, DIFF, CBC, CAION, PHOS, BMP ####[place] [id number] Eosinophil, Abs Manual 0.0 10 3/mcL Normal 0.0-0.7 [facility] ([place] Comment on above: Performed By: #### G FR, MORPH, MG, DIFF, CBC, CAION, PHOS, BMP ####[address] [address] Lymphocyte %, Manual 14.0 % Low 20.0-40.0 [facility] ([place]) Comment on above: Performed By: #### G FR, MORPH, MG, DIFF, CBC, CAION, PHOS, BMP ####[address] [address] Lymphocyte, Abs Manual 3.2 10 3/mcL Normal 0.9-4.3 [facility] ([place] Comment on above: Performed By: #### G FR, MORPH, MG, DIFF, CBC, CAION, PHOS, BMP ####[place] [address] Metamyelocyte 2.0 % Normal [facility] ([place] Comment on above: Performed By: #### G FR, MORPH, MG, DIFF, CBC, CAION, PHOS, BMP ####[place] [address] Monocyte %, Manual 6.0 % Normal 2.0-13.0 [facility] ([place]) Comment on above: Performed By: #### G FR, MORPH, MG, DIFF, CBC, CAION, PHOS, BMP ####[address] [address] Monocyte, Abs Manual 1.3 10 3/mcL Normal 0.1-1.4 [facility] ([place] Comment on above: Performed By: #### G FR, MORPH, MG, DIFF, CBC, CAION, PHOS, BMP ####[address] [address] Neutrophil %, Manual 69.0 % Normal 50.0-75.0 [facility] ([place] Comment on above: Performed By: #### G FR, MORPH, MG, DIFF, CBC, CAION, PHOS, BMP ####[address] [address] Neutrophil, Abs Manual 17.5 10 3/mcL High 2.3-8.1 [facility] ([place] Comment on above: Performed By: #### G FR, MORPH, MG, DIFF, CBC, CAION, PHOS, BMP ####[place] [address] Nucleated RBC 0.0 /100 WBC Normal [facility] ([place] Comment on above: Performed By: #### G FR, MORPH, MG, DIFF, CBC, CAION, PHOS, BMP ####[place] [address] .Morphon 04-23-2024 Anisocytosis Ql (Bld) 1+ Normal [facility] ([place]) Comment on above: Performed By: #### G FR, MORPH, MG, DIFF, CBC, CAION, PHOS, BMP ####[place] [address] Ovalocytes 1+ Normal [facility] ([place] Comment on above: Performed By: #### G FR, MORPH, MG, DIFF, CBC, CAION, PHOS, BMP ####[place] [address] Platelet Estimate Normal Normal [facility] ([place] Comment on above: Performed By: #### G FR, MORPH, MG, DIFF, CBC, CAION, PHOS, BMP ####[place] [address] Polychrom 1+ Normal [facility] ([place] Comment on above: Performed By: #### G FR, MORPH, MG, DIFF, CBC, CAION, PHOS, BMP ####[place] [address] Target Cell 1+ Normal [facility] ([place] Comment on above: Performed By: #### G FR, MORPH, MG, DIFF, CBC, CAION, PHOS, BMP ####[place] [address] Toxic Gran 1+ Normal [facility] ([place] Comment on above: Performed By: #### G FR, MORPH, MG, DIFF, CBC, CAION, PHOS, BMP ####[place] [address] BMPon 06-05-2024 BUN/Creatinine Ratio 26.1 ratio High 10.0-22.0 [facility] ([place] Comment on above: Performed By: #### G FR, MORPH, MG, DIFF, CBC, CAION, PHOS, BMP ####[address] [address] Calcium [Mass/Vol] 7.7 mg/dL Low 8.7-10.4 [facility] ([place]) Comment on above: Performed By: #### G FR, MORPH, MG, DIFF, CBC, CAION, PHOS, BMP ####[address] [address] Chloride [Moles/Vol] 103 mmol/L Normal 98-110 [facility] ([place] Comment on above: Performed By: #### G FR, MORPH, MG, DIFF, CBC, CAION, PHOS, BMP ####[address] [address] CO2 [Moles/Vol] 20 mmol/L Low 22-32 [facility] ([place] Comment on above: Performed By: #### G FR, MORPH, MG, DIFF, CBC, CAION, PHOS, BMP ####[address] [address] Creatinine [Mass/Vol] 2.61 mg/dL High 0.60-1.40 [facility] ([place] Comment on above: Performed By: #### G FR, MORPH, MG, DIFF, CBC, CAION, PHOS, BMP ####[place] [address] Electrolyte Balance 10.0 mEq/L Normal 4.0-15.0 [facility] ([place] Comment on above: Performed By: #### G FR, MORPH, MG, DIFF, CBC, CAION, PHOS, BMP ####[place] [address] Glucose [Mass/Vol] 190 mg/dL High 70-110 [facility] ([place]) Comment on above: Performed By: #### G FR, MORPH, MG, DIFF, CBC, CAION, PHOS, BMP ####[place] [address] Potassium [Moles/Vol] 4.8 mmol/L Normal 3.5-5.0 [facility] ([place] Comment on above: Performed By: #### G FR, MORPH, MG, DIFF, CBC, CAION, PHOS, BMP ####[place] [address] Sodium [Moles/Vol] 133 mmol/L Low 136-145 [facility] ([place]) Comment on above: Performed By: #### G FR, MORPH, MG, DIFF, CBC, CAION, PHOS, BMP ####[place] [address] Urea nitrogen [Mass/Vol] 68.0 mg/dL High 8.0-22.0 [facility] ([place] Comment on above: Performed By: #### G FR, MORPH, MG, DIFF, CBC, CAION, PHOS, BMP ####[place] [address] CAIONon 04-23-2024 Calcium Ionized 1.04 mmol/L Low 1.12-1.32 [facility] ([place] Comment on above: Performed By: #### G FR, MORPH, MG, DIFF, CBC, CAION, PHOS, BMP ####[place] [address] CBCon 04-23-2024 Erythrocyte distribution width (RBC) [Ratio] 16.6 % High 11.5-15.5 [facility] ([place] Comment on above: Performed By: #### G FR, MORPH, MG, DIFF, CBC, CAION, PHOS, BMP ####[place] [address] Hematocrit (Bld) [Volume fraction] 25.3 % Low 40.0-52.0 [facility] ([place] Comment on above: Performed By: #### G FR, MORPH, MG, DIFF, CBC, CAION, PHOS, BMP ####[place] [address] Hgb 8.3 G/dL Low 13.0-17.5 [facility] ([place] Comment on above: Performed By: #### G FR, MORPH, MG, DIFF, CBC, CAION, PHOS, BMP ####[place] [address] MCH (RBC) [Entitic mass] 26.5 pg Low 27.0-33.0 [facility] ([place] Comment on above: Performed By: #### G FR, MORPH, MG, DIFF, CBC, CAION, PHOS, BMP ####[place] [address] MCHC 32.7 G/dL Normal 32.0-36.0 [facility] ([place] Comment on above: Performed By: #### G FR, MORPH, MG, DIFF, CBC, CAION, PHOS, BMP ####[place] [address] MCV (RBC) [Entitic vol] 80.8 fL Low 81.0-100.0 A [facility] ([place] Comment on above: Performed By: #### G FR, MORPH, MG, DIFF, CBC, CAION, PHOS, BMP ####[place] [address] Platelet 410 10 3/mcL Normal 150-450 [facility] ([place] Comment on above: Performed By: #### G FR, MORPH, MG, DIFF, CBC, CAION, PHOS, BMP ####[place] [address] Platelet mean volume (Bld) [Entitic vol] 9.3 fL Normal 6.4-10.5 [facility] ([place] Comment on above: Performed By: #### G FR, MORPH, MG, DIFF, CBC, CAION, PHOS, BMP ####[place] [address] RBC 3.13 10 6/mcL Low 4.50-6.00 [facility] ([place] Comment on above: Performed By: #### G FR, MORPH, MG, DIFF, CBC, CAION, PHOS, BMP ####[place] [address] WBC 22.5 10 3/mcL High 4.5-10.8 [facility] ([place] Comment on above: Performed By: #### G FR, MORPH, MG, DIFF, CBC, CAION, PHOS, BMP ####[place] [address] LABORATORYOrdered By: Yamel Carlos on 04-23-2024 Calcium [...] 04-23-2024 Magnesium [Mass/Vol] 2.2 mg/dL Normal 1.6-2.4 [facility] ([place] Comment on above: Performed By: #### G FR, MORPH, MG, DIFF, CBC, CAION, PHOS, BMP ####[place] [address] PHOSon 04-23-2024 Phosphate [Mass/Vol] 4.6 mg/dL Normal 2.4-5.1 [facility] ([place] Comment on above: Result Comment: No te - New Reference Range in effect 20 Performed By: #### G FR, MORPH, MG, DIFF, CBC, CAION, PHOS, BMP ####[place] [address] .Auto Diffon 04-22-2024 Basophil, Absolute 0.1 10 3/mcL Normal 0.0-0.3 [facility] ([place] Comment on above: Performed By: #### B MP, CBC, ANEU, GFR, ADIFF ####[place] [address] Basophils/100 WBC (Bld) 0.3 % Normal 0.0-2.5 A [facility] ([place] Comment on above: Performed By: #### B MP, CBC, ANEU, GFR, ADIFF ####[address] [address] Eosinophil, Absolute 0.1 10 3/mcL Normal 0.0-0.7 [facility] ([place] Comment on above: Performed By: #### B MP, CBC, ANEU, GFR, ADIFF ####[address] [address] Eosinophils/100 WBC (Bld) 0.5 % Normal 0.0-6.0 [facility] ([place] Comment on above: Performed By: #### B MP, CBC, ANEU, GFR, ADIFF ####[address] [address] Lymphocyte, Absolute 2.0 10 3/mcL Normal 0.9-4.3 [facility] ([place] Comment on above: Performed By: #### B MP, CBC, ANEU, GFR, ADIFF ####[address] [address] Lymphocytes/100 WBC (Bld) 9.8 % Low 20.0-40.0 [facility] ([place]) Comment on above: Performed By: #### B MP, CBC, ANEU, GFR, ADIFF ####[address] [address] Monocyte, Absolute 1.7 10 3/mcL High 0.1-1.4 [facility] ([place] Comment on above: Performed By: #### B MP, CBC, ANEU, GFR, ADIFF ####[address] [address] Monocytes/100 WBC (Bld) 8.4 % Normal 2.0-13.0 [facility] ([place]) Comment on above: Performed By: #### B MP, CBC, ANEU, GFR, ADIFF ####[address] [address] Neutrophils/100 WBC (Bld) 81.0 % High 50.0-75.0 [facility] ([place] Comment on above: Performed By: #### B MP, CBC, ANEU, GFR, ADIFF ####[place] [address] .GFRon 04-22-2024 GFR 32 ml/min/1.73sqm [facility] ([place] Comment on above: Result Comment: GFR Population [...] #### P MITCHELL REDDY, BMP, GFR, MG ####[place] [address] GFR Non- 27 ml/min/1.73sqm [facility] ([place] Comment on above: Result Comment: GFR Population [...] By: #### P HOSMITCHELL, BMP, GFR, MG ####[place] [address] GFR 32 ml/min/1.73sqm [facility] ([place] Comment on above: Result Comment: GFR Population [...] #### B MP, CBC, ANEU, GFR, ADIFF ####[place] [address] GFR Non- 26 ml/min/1.73sqm [facility] ([place] Comment on above: Result Comment: GFR Population [...] #### B MP, CBC, ANEU, GFR, ADIFF ####[place] [address] .NEUABSon 04-22-2024 Neutrophil, Absolute 16.9 10 3/mcL High 2.3-8.1 A [facility] ([place] Comment on above: Performed By: #### B MP, CBC, ANEU, GFR, ADIFF ####[place] [address] BMPon 04-22-2024 BUN/Creatinine Ratio 23.8 ratio High 10.0-22.0 [facility] ([place] Comment on above: Performed By: #### P HOS, CAION, BMP, GFR, MG ####[address] [address] Calcium [Mass/Vol] 7.8 mg/dL Low 8.7-10.4 [facility] ([place]) Comment on above: Performed By: #### P HOS, CAION, BMP, GFR, MG ####[address] [address] Chloride [Moles/Vol] 102 mmol/L Normal 98-110 [facility] ([place] Comment on above: Performed By: #### P HOS, CAION, BMP, GFR, MG ####[address] [address] CO2 [Moles/Vol] 24 mmol/L Normal 22-32 [facility] ([place] Comment on above: Performed By: #### P HOS, CAION, BMP, GFR, MG ####[address] [address] Creatinine [Mass/Vol] 2.60 mg/dL High 0.60-1.40 [facility] ([place] Comment on above: Performed By: #### P HOS, CAION, BMP, GFR, MG ####[place] [address] Electrolyte Balance 6.0 mEq/L Normal 4.0-15.0 [facility] ([place]) Comment on above: Performed By: #### P HOS, CAION, BMP, GFR, MG ####[address] [address] Glucose [Mass/Vol] 249 mg/dL High 70-110 [facility] ([place]) Comment on above: Performed By: #### P HOS, CAION, BMP, GFR, MG ####[address] [address] Potassium [Moles/Vol] 3.8 mmol/L Normal 3.5-5.0 [facility] ([place] Comment on above: Performed By: #### P HOS, CAION, BMP, GFR, MG ####[address] [address] Sodium [Moles/Vol] 132 mmol/L Low 136-145 [facility] ([place]) Comment on above: Performed By: #### P HOS, CAION, BMP, GFR, MG ####[address] [address] Urea nitrogen [Mass/Vol] 62.0 mg/dL High 8.0-22.0 [facility] [place] Comment on above: Performed By: #### P HOS, CAION, BMP, GFR, MG ####[place] [address] BUN/Creatinine Ratio 22.4 ratio High 10.0-22.0 [facility] ([place] Comment on above: Performed By: #### B MP, CBC, ANEU, GFR, ADIFF ####[address] [address] Calcium [Mass/Vol] 7.9 mg/dL Low 8.7-10.4 [facility] ([place]) Comment on above: Performed By: #### B MP, CBC, ANEU, GFR, ADIFF ####[place] [address] Chloride [Moles/Vol] 101 mmol/L Normal 98-110 [facility] ([place] Comment on above: Performed By: #### B MP, CBC, ANEU, GFR, ADIFF ####[address] [address] CO2 [Moles/Vol] 21 mmol/L Low 22-32 [facility] ([place] Comment on above: Performed By: #### B MP, CBC, ANEU, GFR, ADIFF ####[address] [address] Creatinine [Mass/Vol] 2.63 mg/dL High 0.60-1.40 [facility] ([place] Comment on above: Performed By: #### B MP, CBC, ANEU, GFR, ADIFF ####[address] [address] Electrolyte Balance 10.0 mEq/L Normal 4.0-15.0 [facility] ([place] Comment on above: Performed By: #### B MP, CBC, ANEU, GFR, ADIFF ####[place] [address] Glucose [Mass/Vol] 256 mg/dL High 70-110 [facility] ([place] Comment on above: Performed By: #### B MP, CBC, ANEU, GFR, ADIFF ####[place] [address] Potassium [Moles/Vol] 4.0 mmol/L Normal 3.5-5.0 [facility] ([place] Comment on above: Performed By: #### B MP, CBC, ANEU, GFR, ADIFF ####[place] [address] Sodium [Moles/Vol] 132 mmol/L Low 136-145 [facility] ([place]) Comment on above: Performed By: #### B MP, CBC, ANEU, GFR, ADIFF ####[place] [address] Urea nitrogen [Mass/Vol] 59.0 mg/dL High 8.0-22.0 [facility] [place] Comment on above: Performed By: #### B MP, CBC, ANEU, GFR, ADIFF ####[place] [address] CAIONon 04-22-2024 Calcium Ionized 1.04 mmol/L Low 1.12-1.32 [facility] ([place] Comment on above: Performed By: #### P HOS, CAION, BMP, GFR, MG ####[place] [address] CBCon 04-22-2024 Erythrocyte distribution width (RBC) [Ratio] 16.5 % High 11.5-15.5 [facility] [place] Comment on above: Performed By: #### B MP, CBC, ANEU, GFR, ADIFF ####[place] [address] Hematocrit (Bld) [Volume fraction] 24.2 % Low 40.0-52.0 [facility] [place] Comment on above: Performed By: #### B MP, CBC, ANEU, GFR, ADIFF ####[place] [address] Hgb 8.0 G/dL Low 13.0-17.5 [facility] ([place] Comment on above: Performed By: #### B MP, CBC, ANEU, GFR, ADIFF ####[place] [address] MCH (RBC) [Entitic mass] 26.4 pg Low 27.0-33.0 [facility] [place] Comment on above: Performed By: #### B MP, CBC, ANEU, GFR, ADIFF ####[place] [address] MCHC 33.2 G/dL Normal 32.0-36.0 [facility] ([place] Comment on above: Performed By: #### B MP, CBC, ANEU, GFR, ADIFF ####[place] [address] MCV (RBC) [Entitic vol] 79.4 fL Low 81.0-100.0 A [facility] ([place] Comment on above: Performed By: #### B MP, CBC, ANEU, GFR, ADIFF ####[place] [address] Platelet 355 10 3/mcL Normal 150-450 [facility] ([place] Comment on above: Performed By: #### B MP, CBC, ANEU, GFR, ADIFF ####[place] [address] Platelet mean volume (Bld) [Entitic vol] 8.9 fL Normal 6.4-10.5 [facility] ([place]) Comment on above: Performed By: #### B MP, CBC, ANEU, GFR, ADIFF ####[place] [address] RBC 3.05 10 6/mcL Low 4.50-6.00 [facility] ([place]) Comment on above: Performed By: #### B MP, CBC, ANEU, GFR, ADIFF ####[place] [address] WBC 20.8 10 3/mcL High 4.5-10.8 [facility]) Comment on above: Performed By: #### B MP, CBC, ANEU, GFR, ADIFF ####[place] [address] CRESPon 04-22-2024 CRESP Normal [facility] ([place]) HHon 04-22-2024 Hematocrit (Bld) [Volume fraction] 27.1 % Low 40.0-52.0 [facility] ([place]) Comment on above: Performed By: #### H H, TROPHS ####[place] [address] Hgb 8.9 G/dL Low 13.0-17.5 [facility] ([place] Comment on above: Performed By: #### H H, TROPHS ####[place] [address] Rainer 04-22-2024 Potassium [Moles/Vol] 4.0 mmol/L Normal 3.5-5.0 [facility] ([place]) Comment on above: Performed By: #### P HOS, MG, K ####[place] [address] LABORATORYOrdered By: Samra Cortes on 04-22-2024 Calcium Ionized 1.04 mmol/L Low 1.12 - 1.32 mmol/L Main Rapid Comm SS MGon 04-22-2024 Magnesium [Mass/Vol] 1.9 mg/dL Normal 1.6-2.4 [facility] ([place]) Comment on above: Performed By: #### P HOS, CAION, BMP, GFR, MG ####[place] [address] Magnesium [Mass/Vol] 2.2 mg/dL Normal 1.6-2.4 [facility] ([place]) Comment on above: Performed By: #### P HOS, MG, K ####[place] [address] PHOSon 04-22-2024 Phosphate [Mass/Vol] 4.5 mg/dL Normal 2.4-5.1 [facility] ([place]) Comment on above: Result Comment: No te - New Reference Range in effect 20 Performed By: #### P HOS, CAION, BMP, GFR, MG ####[place] [address] Phosphate [Mass/Vol] 5.0 mg/dL Normal 2.4-5.1 [facility] ([place]) Comment on above: Result Comment: No te - New Reference Range in effect 20 Performed By: #### P HOS, MG, K ####[place] [address] RPRon 04-22-2024 Reagin Ab RPR Ql (S) Non-Reactive Normal Non-[place] cti ve [facility] ([place] Comment on above: Result Comment: The RPR [...] CBC, ANEU, HFP, CK, ADIFF, HIV, GFR ####[place] [address] TROPHSon 04-22-2024 High Sensitivity Troponin I 23 ng/L Normal 0-54 [facility] ([place] Comment on above: Result Comment: High Sensitive Troponin I Reference Ranges:Female: 0-34 ng/LMale: 0-54 ng/LTesting performed on Simple [employer] IM analyzer using direct chemiluminescent technology. Performed By: #### H H, VELMA ####[place] [address] XR CHEST 1 VIEWon 04-22-2024 XR CHEST 1 VIEW Normal [facility] ([place]) .Auto Diffon 04-21-2024 Basophil, Absolute 0.0 10 3/mcL Normal 0.0-0.3 [facility] ([place]) Comment on above: Performed By: #### B MP, RPR, HEPAC, CBC, ANEU, HFP, CK, ADIFF, HIV, GFR ####[address] [address] Basophils/100 WBC (Bld) 0.1 % Normal 0.0-2.5 A [facility] ([place]) Comment on above: Performed By: #### B MP, RPR, HEPAC, CBC, ANEU, HFP, CK, ADIFF, HIV, GFR ####[address] [address] Eosinophil, Absolute 0.3 10 3/mcL Normal 0.0-0.7 [facility] ([place]) Comment on above: Performed By: #### B MP, RPR, HEPAC, CBC, ANEU, HFP, CK, ADIFF, HIV, GFR ####[address] [address] Eosinophils/100 WBC (Bld) 1.3 % Normal 0.0-6.0 [facility] ([place] Comment on above: Performed By: #### B MP, RPR, HEPAC, CBC, ANEU, HFP, CK, ADIFF, HIV, GFR ####[address] [address] Lymphocyte, Absolute 1.4 10 3/mcL Normal 0.9-4.3 [facility] ([place] Comment on above: Performed By: #### B MP, RPR, HEPAC, CBC, ANEU, HFP, CK, ADIFF, HIV, GFR ####[address] [address] Lymphocytes/100 WBC (Bld) 6.4 % Low 20.0-40.0 [facility] ([place] Comment on above: Performed By: #### B MP, RPR, HEPAC, CBC, ANEU, HFP, CK, ADIFF, HIV, GFR ####[address] [address] Monocyte, Absolute 1.9 10 3/mcL High 0.1-1.4 [facility] ([place] Comment on above: Performed By: #### B MP, RPR, HEPAC, CBC, ANEU, HFP, CK, ADIFF, HIV, GFR ####[place] [id number] [address] [place] [address] Monocytes/100 WBC (Bld) 8.8 % Normal 2.0-13.0 A [facility] ([place]) Comment on above: Performed By: #### B MP, RPR, HEPAC, CBC, ANEU, HFP, CK, ADIFF, HIV, GFR ####[address] [address] Neutrophils/100 WBC (Bld) 83.4 % High 50.0-75.0 [facility] ([place]) Comment on above: Performed By: #### B MP, RPR, HEPAC, CBC, ANEU, HFP, CK, ADIFF, HIV, GFR ####[address] [address] .GFRon 04-21-2024 GFR 30 ml/min/1.73sqm Normal [facility] ([place]) Comment on above: Result Comment: [...] CBC, ANEU, HFP, CK, ADIFF, HIV, GFR ####[address] [address] GFR Non- 25 ml/min/1.73sqm Normal [facility] ([place]) Comment on above: Result Comment: [...] CBC, ANEU, HFP, CK, ADIFF, HIV, GFR ####[address] [address] .Manual Diffon 04-21-2024 Basophil %, Manual 0.0 % Normal 0.0-2.5 [facility] ([place]) Comment on above: Performed By: #### D IFF, MORPH, PRO, CBC ####[place] [address] Basophil, Abs Manual 0.0 10 3/mcL Normal 0.0-0.3 [facility] ([place]) Comment on above: Performed By: #### D IFF, MORPH, PRO, CBC ####[place] [address] Eosinophil %, Manual 0.0 % Normal 0.0-6.0 [facility] ([place] Comment on above: Performed By: #### D IFF, MORPH, PRO, CBC ####[place] [address] Eosinophil, Abs Manual 0.0 10 3/mcL Normal 0.0-0.7 [facility] ([place] Comment on above: Performed By: #### D IFF, MORPH, PRO, CBC ####[place] [address] Lymphocyte %, Manual 19.0 % Low 20.0-40.0 [facility] ([place] Comment on above: Performed By: #### D IFF, MORPH, PRO, CBC ####[place] [address] Lymphocyte, Abs Manual 3.6 10 3/mcL Normal 0.9-4.3 [facility] ([place] Comment on above: Performed By: #### D IFF, MORPH, PRO, CBC ####[place] [address] Monocyte %, Manual 4.0 % Normal 2.0-13.0 [facility] ([place]) Comment on above: Performed By: #### D IFF, MORPH, PRO, CBC ####[place] [address] Monocyte, Abs Manual 0.7 10 3/mcL Normal 0.1-1.4 [facility] ([place]) Comment on above: Performed By: #### D IFF, MORPH, PRO, CBC ####[place] [address] Neutrophil %, Manual 77.0 % High 50.0-75.0 [facility] ([place]) Comment on above: Performed By: #### D IFF, MORPH, PRO, CBC ####[place] [address] Neutrophil, Abs Manual 14.3 10 3/mcL High 2.3-8.1 [facility] ([place] Comment on above: Performed By: #### D IFF, MORPH, PRO, CBC ####[place] [address] Nucleated RBC 0.0 /100 WBC Normal [facility] ([place] Comment on above: Performed By: #### D IFF, MORPH, PRO, CBC ####[place] [address] .Morphon 04-21-2024 Anisocytosis Ql (Bld) 1+ Normal [facility] ([place]) Comment on above: Performed By: #### D IFF, MORPH, PRO, CBC ####[place] [address] Large Platelets Few Normal [facility] ([place] Comment on above: Performed By: #### D IFF, MORPH, PRO, CBC ####[place] [address] Platelet Estimate Normal Normal [facility] ([place]) Comment on above: Performed By: #### D IFF, MORPH, PRO, CBC ####[address] [address] .NEUABSon 04-21-2024 Neutrophil, Absolute 18.3 10 3/mcL High 2.3-8.1 A [facility] ([place]) Comment on above: Performed By: #### B MP, RPR, HEPAC, CBC, ANEU, HFP, CK, ADIFF, HIV, GFR ####[place] [address] ABO/Rh (Gel)on 04-21-2024 ABO/Rh Interp Positive Invalid Interpretation Code [facility] ([place]) Comment on above: Performed By: #### A SWAPNA PACK ####[place] [address] ABS (Gel)on 04-21-2024 ABSC Interp (Gel) Negative Normal [facility] ([place]) Comment on above: Performed By: #### A SWAPNA PACK ####[place] [address] APTTon 04-21-2024 aPTT Coag (Bld) [Time] 28.2 s Normal 25.0-35.0 [facility] ([place]) Comment on above: Result Comment: For Heparin anticoagulation therapy, the recommendedtherapeutic range is: 54-77 seconds (APTT Correlationwith Anti-Xa therapeutic range of 0.3-0.7 units/ml).PLEASE REFERENCE THE PHARMACY PROTOCOL FOR DOSING. Performed By: #### D IFF, MORPH, PRO, CBC ####[place] [address] Heparin dose (APTT) None Normal [facility] ([place]) Comment on above: Performed By: #### D IFF, MORPH, PRO, CBC ####[place] [address] BMPon 04-21-2024 BUN/Creatinine Ratio 23.0 ratio High 10.0-22.0 [facility] ([place]) Comment on above: Performed By: #### B MP, RPR, HEPAC, CBC, ANEU, HFP, CK, ADIFF, HIV, GFR ####[address] [address] Calcium [Mass/Vol] 8.0 mg/dL Low 8.7-10.4 [facility] ([place]) Comment on above: Performed By: #### B MP, RPR, HEPAC, CBC, ANEU, HFP, CK, ADIFF, HIV, GFR ####[address] [address] Chloride [Moles/Vol] 101 mmol/L Normal 98-110 [facility] ([place]) Comment on above: Performed By: #### B MP, RPR, HEPAC, CBC, ANEU, HFP, CK, ADIFF, HIV, GFR ####[address] [address] CO2 [Moles/Vol] 24 mmol/L Normal 22-32 [facility] ([place]) Comment on above: Performed By: #### B MP, RPR, HEPAC, CBC, ANEU, HFP, CK, ADIFF, HIV, GFR ####[address] [address] Creatinine [Mass/Vol] 2.78 mg/dL High 0.60-1.40 [facility] ([place]) Comment on above: Performed By: #### B MP, RPR, HEPAC, CBC, ANEU, HFP, CK, ADIFF, HIV, GFR ####[address] [address] Electrolyte Balance 11.0 mEq/L Normal 4.0-15.0 [facility] ([place]) Comment on above: Performed By: #### B MP, RPR, HEPAC, CBC, ANEU, HFP, CK, ADIFF, HIV, GFR ####[address] [address] Glucose [Mass/Vol] 179 mg/dL High 70-110 [facility] ([place]) Comment on above: Performed By: #### B MP, RPR, HEPAC, CBC, ANEU, HFP, CK, ADIFF, HIV, GFR ####[address] [address] Potassium [Moles/Vol] 3.7 mmol/L Normal 3.5-5.0 [facility] ([place] Comment on above: Performed By: #### B MP, RPR, HEPAC, CBC, ANEU, HFP, CK, ADIFF, HIV, GFR ####[place] [address] Sodium [Moles/Vol] 136 mmol/L Normal 136-145 [facility] ([place]) Comment on above: Performed By: #### B MP, RPR, HEPAC, CBC, ANEU, HFP, CK, ADIFF, HIV, GFR ####[place] [address] Urea nitrogen [Mass/Vol] 64.0 mg/dL High 8.0-22.0 [facility] ([place] Comment on above: Performed By: #### B MP, RPR, HEPAC, CBC, ANEU, HFP, CK, ADIFF, HIV, GFR ####[place] [address] CBCon 04-21-2024 Erythrocyte distribution width (RBC) [Ratio] 16.4 % High 11.5-15.5 [facility] ([place] Comment on above: Performed By: #### D IFF, MORPH, PRO, CBC ####[place] [address] Hematocrit (Bld) [Volume fraction] 20.9 % Low 40.0-52.0 [facility] ([place] Comment on above: Performed By: #### D IFF, MORPH, PRO, CBC ####[place] [address] Hgb 6.6 G/dL Critically abnormal 13.0-17.5 [facility] ([place] Comment on above: Performed By: #### D IFF, MORPH, PRO, CBC ####[place] [address] MCH (RBC) [Entitic mass] 25.5 pg Low 27.0-33.0 [facility] ([place] Comment on above: Performed By: #### D IFF, MORPH, PRO, CBC ####[address] [address] MCHC 31.4 G/dL Low 32.0-36.0 [facility] ([place] Comment on above: Performed By: #### D IFF, MORPH, PRO, CBC ####[place] [address] MCV (RBC) [Entitic vol] 81.0 fL Normal 81.0-100.0 A [facility] ([place]) Comment on above: Performed By: #### D IFF, MORPH, PRO, CBC ####[place] [address] Platelet 357 10 3/mcL Normal 150-450 [facility] ([place]) Comment on above: Performed By: #### D IFF, MORPH, PRO, CBC ####[place] [address] Platelet mean volume (Bld) [Entitic vol] 8.8 fL Normal 6.4-10.5 [facility] ([place]) Comment on above: Performed By: #### D IFF, MORPH, PRO, CBC ####[place] [address] RBC 2.58 10 6/mcL Low 4.50-6.00 [facility] ([place]) Comment on above: Performed By: #### D IFF, MORPH, PRO, CBC ####[place] [address] WBC 18.7 10 3/mcL High 4.5-10.8 [facility] ([place]) Comment on above: Performed By: #### D IFF, MORPH, PRO, CBC ####[place] [address] Erythrocyte distribution width (RBC) [Ratio] 16.0 % High 11.5-15.5 [facility] ([place] Comment on above: Performed By: #### B MP, RPR, HEPAC, CBC, ANEU, HFP, CK, ADIFF, HIV, GFR ####[address] [address] Hematocrit (Bld) [Volume fraction] 24.8 % Low 40.0-52.0 [facility] ([place] Comment on above: Performed By: #### B MP, RPR, HEPAC, CBC, ANEU, HFP, CK, ADIFF, HIV, GFR ####[place] [address] Hgb 8.1 G/dL Low 13.0-17.5 [facility] ([place] Comment on above: Performed By: #### B MP, RPR, HEPAC, CBC, ANEU, HFP, CK, ADIFF, HIV, GFR ####[place] [address] MCH (RBC) [Entitic mass] 25.4 pg Low 27.0-33.0 [facility] ([place] Comment on above: Performed By: #### B MP, RPR, HEPAC, CBC, ANEU, HFP, CK, ADIFF, HIV, GFR ####[place] [address] MCHC 32.6 G/dL Normal 32.0-36.0 [facility] ([place] Comment on above: Performed By: #### B MP, RPR, HEPAC, CBC, ANEU, HFP, CK, ADIFF, HIV, GFR ####[place] [address] MCV (RBC) [Entitic vol] 78.1 fL Low 81.0-100.0 A [facility] ([place] Comment on above: Performed By: #### B MP, RPR, HEPAC, CBC, ANEU, HFP, CK, ADIFF, HIV, GFR ####[place] [address] Platelet 432 10 3/mcL Normal 150-450 [facility] ([place] Comment on above: Performed By: #### B MP, RPR, HEPAC, CBC, ANEU, HFP, CK, ADIFF, HIV, GFR ####[place] [address] Platelet mean volume (Bld) [Entitic vol] 8.3 fL Normal 6.4-10.5 [facility] ([place] Comment on above: Performed By: #### B MP, RPR, HEPAC, CBC, ANEU, HFP, CK, ADIFF, HIV, GFR ####[place] [address] RBC 3.18 10 6/mcL Low 4.50-6.00 [facility] ([place] Comment on above: Performed By: #### B MP, RPR, HEPAC, CBC, ANEU, HFP, CK, ADIFF, HIV, GFR ####[place] [address] WBC 21.9 10 3/mcL High 4.5-10.8 [facility] ([place]) Comment on above: Performed By: #### B MP, RPR, HEPAC, CBC, ANEU, HFP, CK, ADIFF, HIV, GFR ####[place] [address] CBLon 04-21-2024 CBL Normal [facility] ([place]) CKon 04-21-2024 CK [Catalytic activity/Vol] 24 U/L Normal 7-185 [facility] ([place]) Comment on above: Performed By: #### B MP, RPR, HEPAC, CBC, ANEU, HFP, CK, ADIFF, HIV, GFR ####[place] [address] CTISSon 04-21-2024 CTISS [facility] ([place]) CWDPon 04-21-2024 CWDP [facility] ([place]) HEPACon 04-21-2024 Hep A IgM Ab Non-Reactive Normal Non-Reacti ve [facility] ([place] Comment on above: Performed By: #### B MP, RPR, HEPAC, CBC, ANEU, HFP, CK, ADIFF, HIV, GFR ####[place] [address] Hep A IgM Ab Int [facility] ([place]) Comment on above: Result Comment: No s erological evidence of a current Hepatitis A infection.See Interp Performed By: #### B MP, RPR, HEPAC, CBC, ANEU, HFP, CK, ADIFF, HIV, GFR ####[place] [address] Hep B Core IgM Ab Non-Reactive Normal Non-Reacti [facility] ([place]) Comment on above: Performed By: #### B MP, RPR, HEPAC, CBC, ANEU, HFP, CK, ADIFF, HIV, GFR ####[place] [address] Hep B Core IgM Ab Int Normal [facility] ([place]) Comment on above: Result Comment: Samp les with a value < 0.80 Index are considered nonreactive (negative) for IgM antibodies to hepatitis B core antigen.See Interp Performed By: #### B MP, RPR, HEPAC, CBC, ANEU, HFP, CK, ADIFF, HIV, GFR ####[place] [address] Hep B Surf Ag [facility] Comment on above: Performed By: #### B MP, RPR, HEPAC, CBC, ANEU, HFP, CK, ADIFF, HIV, GFR ####[place] [address] Hep C Ab Non-Reactive Normal [facility] [place] Comment on above: Performed By: #### B MP, RPR, HEPAC, CBC, ANEU, HFP, CK, ADIFF, HIV, GFR ####[place] [address] Hep C Ab Int Normal [facility] ([place]) Comment on above: Result Comment: Nonr eactive: [...] CBC, ANEU, HFP, CK, ADIFF, HIV, GFR ####[place] [address] HFPon 04-21-2024 Bili Indirect 0.2 mg/dL Normal 0.1-10.0 [facility] ([place]) Comment on above: Performed By: #### B MP, RPR, HEPAC, CBC, ANEU, HFP, CK, ADIFF, HIV, GFR ####[place] [id number] Albumin Level 1.2 G/dL Low 3.2-4.8 [facility] ([place]) Comment on above: Performed By: #### B MP, RPR, HEPAC, CBC, ANEU, HFP, CK, ADIFF, HIV, GFR ####[address] [address] Albumin/Globulin [Mass ratio] 0.2 {ratio} Low 0.9-1.6 [facility] ([place]) Comment on above: Performed By: #### B MP, RPR, HEPAC, CBC, ANEU, HFP, CK, ADIFF, HIV, GFR ####[address] [address] ALP [Catalytic activity/Vol] 386 U/L High 38-126 [facility] ([place]) Comment on above: Performed By: #### B MP, RPR, HEPAC, CBC, ANEU, HFP, CK, ADIFF, HIV, GFR ####[address] [address] ALT [Catalytic activity/Vol] 21 U/L Normal 12-55 [facility] ([place]) Comment on above: Performed By: #### B MP, RPR, HEPAC, CBC, ANEU, HFP, CK, ADIFF, HIV, GFR ####[address] [address] AST [Catalytic activity/Vol] 23 U/L Normal 8-34 [facility] ([place]) Comment on above: Performed By: #### B MP, RPR, HEPAC, CBC, ANEU, HFP, CK, ADIFF, HIV, GFR ####[address] [address] Bili Direct 0.4 mg/dL Normal 0.0-0.4 [facility] ([place]) Comment on above: Result Comment: Use of this assay is not recommended for patients undergoing treatment with eltrombopag due to the potential for falsely elevated results. Performed By: #### B MP, RPR, HEPAC, CBC, ANEU, HFP, CK, ADIFF, HIV, GFR ####[place] [address] Bili Total 0.60 mg/dL Normal 0.20-1.20 [facility] ([place] Comment on above: Result Comment: Use of this assay is not recommended for patients undergoing treatment with eltrombopag due to the potential for falsely elevated results. Performed By: #### B MP, RPR, HEPAC, CBC, ANEU, HFP, CK, ADIFF, HIV, GFR ####[place] [address] Globulin 5.2 G/dL High 1.5-3.8 [facility] ([place] Comment on above: Performed By: #### B MP, RPR, HEPAC, CBC, ANEU, HFP, CK, ADIFF, HIV, GFR ####[place] [address] Total Protein 6.4 G/dL Normal 5.7-8.2 [facility] ([place] Comment on above: Result Comment: No te - New Reference Range in effect 20 Performed By: #### B MP, RPR, HEPAC, CBC, ANEU, HFP, CK, ADIFF, HIV, GFR ####[place] [address] HHon 04-21-2024 Hematocrit (Bld) [Volume fraction] 23.5 % Low 40.0-52.0 [facility] ([place] Comment on above: Performed By: #### H H ####[place] [address] Hgb 7.6 G/dL Low 13.0-17.5 [facility] ([place] Comment on above: Performed By: #### H H ####[place] [address] HIVon 04-21-2024 HIV 1/2 Ab Non-Reactive Normal Non-Reacti ve [facility] ([place] Comment on above: Result Comment: Spec imen is negative for anti-HIV-1 and anti-HIV-2. Performed By: #### B MP, RPR, HEPAC, CBC, ANEU, HFP, CK, ADIFF, HIV, GFR ####[place] [id number] [address] [place] [address] Rainer 04-21-2024 Potassium [Moles/Vol] 4.1 mmol/L Normal 3.5-5.0 [facility] ([place] Comment on above: Performed By: #### P HOS, K, TROPHS, MG ####[place] [address] LABORATORYOrdered By: SYSTEM SYSTEM on 04-21-2024 Troponin [...] PM) Normal BB Manual SS LABORATORYOrdered By: oRosevelt Peterson on 04-21-2024 PT Coag (PPP) [Time] [...] Comment on above: Interpretive Data: Alexis briones [employer] (CHEST, 1992, [id number]) [...] Non-Reactive (04/21/24 3:07 AM) Normal Non-Reacti ve [facility] SS HCV Ab IA Ql Nonreactive: Samples [...] Non-Reactive (04/21/24 3:07 AM) Normal Non-Reacti ve [facility] SS LABORATORYOrdered By: Nevaeh Bernal on 04-21-2024 Reagin Ab RPR Ql (S) Non-Reactive 27 (04/21/24 3:07 AM) Normal Non-Reacti ve [facility] Viro/Sero SS Comment on above: Interpretive Data: [...] 04-21-2024 Magnesium [Mass/Vol] 1.6 mg/dL Normal 1.6-2.4 [facility] ([place]) Comment on above: Performed By: #### P Eliana REDDY TROPHS MG ####[place] [address] PHOSon 04-21-2024 Phosphate [Mass/Vol] 5.1 mg/dL Normal 2.4-5.1 [facility] ([place]) Comment on above: Result Comment: No te - New Reference Range in effect 20 Performed By: #### P MAUREEN K, TROPHS, MG ####[place] [address] PROon 04-21-2024 INR Coag (PPP) [Relative time] 1.4 {INR} [facility] ([place] Comment on above: Result Comment: [employer] (CHEST, 1991, [id number])recommended therapeutic range for oral anticoagulant therapy is:LOW RISK: Prophylaxis of venous thrombosis INR: 2.0-3.0 Treatment of pulmonary embolism 2.0-3.0 Prevention of systemic embolism 2.0-3.0HIGH RISK: Mechanical prosthetic valves 2.5-3.5 Performed By: #### D IFF, MORPH, PRO, CBC ####[place] [address] PT Coag (PPP) [Time] 16.4 s High 9.0-14.4 [facility] ([place] Comment on above: Result Comment: Effe ctive 06/02/08, Protime results may be affected by some antibiotics (i.e. Ciprofloxacin, Azithromycin, Bactrim) which may potentiate the action of oral anticoagulants, with further increases in Protime/INR. Performed By: #### D IFF, MORPH, PRO, CBC ####[place] [address] RBC (Product)on 04-21-2024 RBC Product Ready RBC Ready for Pickup Normal [facility] ([place] Comment on above: Performed By: #### R BCP ####[place] [address] TROPHSon 04-21-2024 High Sensitivity Troponin I 17 ng/L Normal 0-54 [facility] ([place] Comment on above: Result Comment: High Sensitive Troponin I Reference Ranges:Female: 0-34 ng/LMale: 0-54 ng/LTesting performed on Simple [employer] IM analyzer using direct chemiluminescent technology. Performed By: #### P HOS, K, TROPHS, MG ####[address] [address] .Auto Diffon 04-20-2024 Basophil, Absolute 0.1 10 3/mcL Normal 0.0-0.3 [facility] ([place] Comment on above: Performed By: #### A DIFF, ANEU, CBC, VANCR, BMP, GFR ####[address] [address] Basophils/100 WBC (Bld) 0.3 % Normal 0.0-2.5 A [facility] ([place]) Comment on above: Performed By: #### A DIFF, ANEU, CBC, VANCR, BMP, GFR ####[address] [address] Eosinophil, Absolute 0.5 10 3/mcL Normal 0.0-0.7 [facility] ([place]) Comment on above: Performed By: #### A DIFF, ANEU, CBC, VANCR, BMP, GFR ####[place] [address] Eosinophils/100 WBC (Bld) 2.5 % Normal 0.0-6.0 [facility] ([place] Comment on above: Performed By: #### A DIFF, ANEU, CBC, VANCR, BMP, GFR ####[address] [address] Lymphocyte, Absolute 1.6 10 3/mcL Normal 0.9-4.3 [facility] ([place]) Comment on above: Performed By: #### A DIFF, ANEU, CBC, VANCR, BMP, GFR ####[address] [address] Lymphocytes/100 WBC (Bld) 7.9 % Low 20.0-40.0 [facility] ([place] Comment on above: Performed By: #### A DIFF, ANEU, CBC, VANCR, BMP, GFR ####[address] [address] Monocyte, Absolute 1.8 10 3/mcL High 0.1-1.4 [facility] ([place] Comment on above: Performed By: #### A DIFF, ANEU, CBC, VANCR, BMP, GFR ####[address] [address] Monocytes/100 WBC (Bld) 8.9 % Normal 2.0-13.0 A [facility] ([place] Comment on above: Performed By: #### A DIFF, ANEU, CBC, VANCR, BMP, GFR ####[address] [address] Neutrophils/100 WBC (Bld) 80.4 % High 50.0-75.0 [facility] ([place] Comment on above: Performed By: #### A DIFF, ANEU, CBC, VANCR, BMP, GFR ####[address] [address] .GFRon 04-20-2024 GFR Non- 18 ml/min/1.73sqm [facility] ([place] Comment on above: Result Comment: GFR Population [...] A DIFF, ANEU, CBC, VANCR, BMP, GFR ####[address] [address] GFR 22 ml/min/1.73sqm Normal [facility] ([place] Comment on above: Result Comment: GFR Population [...] A DIFF, ANEU, CBC, VANCR, BMP, GFR ####[place] [address] .NEUABSon 04-20-2024 Neutrophil, Absolute 16.1 10 3/mcL High 2.3-8.1 A [facility] ([place] Comment on above: Performed By: #### A DIFF, ANEU, CBC, VANCR, BMP, GFR ####[place] [address] BGon 04-20-2024 Base excess Calc (Bld) [Moles/Vol] 2.9 mmol/L Normal [facility] ([place] Comment on above: Performed By: #### B G ####[place] [address] CO2 [Moles/Vol] 27.8 mmol/L Normal 22.0-30.0 [facility] ([place] Comment on above: Performed By: #### B G ####[place] [address] HCO3 (Bld) [Moles/Vol] 26.6 mmol/L Normal 21.0-29.0 A [facility]ly [facility], [facility] ([place]) Comment on above: Performed By: #### B G ####[place] [address] Oxygen (Bld) [Partial pressure] 60.8 mm[Hg] Low 74.0-108.0 [facility] ([place] Comment on above: Performed By: #### B G ####[place] [address] Oxygen saturation in Blood 92.2 % Normal 92.0-96.0 [facility] ([place] Comment on above: Performed By: #### B G ####[place] [address] pCO2 37.4 mmHg Normal 32.0-46.0 [facility] [place] Comment on above: Performed By: #### B G ####[place] [id number] pH (Bld) 7.470 [pH] High 7.380-7.46 0 [facility] ([place] Comment on above: Performed By: #### B G ####[address] [address] BMPon 04-20-2024 BUN/Creatinine Ratio 21.6 ratio Normal 10.0-22.0 [facility] ([place] Comment on above: Performed By: #### A DIFF, ANEU, CBC, VANCR, BMP, GFR ####[place] [id number] Calcium [Mass/Vol] 8.2 mg/dL Low 8.7-10.4 [facility] ([place]) Comment on above: Performed By: #### A DIFF, ANEU, CBC, VANCR, BMP, GFR ####[place] [address] Chloride [Moles/Vol] 105 mmol/L Normal 98-110 [facility] ([place] Comment on above: Performed By: #### A DIFF, ANEU, CBC, VANCR, BMP, GFR ####[place] [address] CO2 [Moles/Vol] 28 mmol/L Normal 22-32 [facility] ([place] Comment on above: Performed By: #### A DIFF, ANEU, CBC, VANCR, BMP, GFR ####[place] [address] Creatinine [Mass/Vol] 3.57 mg/dL High 0.60-1.40 [facility] ([place] Comment on above: Performed By: #### A DIFF, ANEU, CBC, VANCR, BMP, GFR ####[place] [address] Electrolyte Balance 9.0 mEq/L Normal 4.0-15.0 [facility] ([place] Comment on above: Performed By: #### A DIFF, ANEU, CBC, VANCR, BMP, GFR ####[place] [address] Glucose [Mass/Vol] 124 mg/dL High 70-110 [facility] ([place] Comment on above: Performed By: #### A DIFF, ANEU, CBC, VANCR, BMP, GFR ####[place] [id number] Potassium [Moles/Vol] 3.6 mmol/L Normal 3.5-5.0 [facility] ([place] Comment on above: Performed By: #### A DIFF, ANEU, CBC, VANCR, BMP, GFR ####[place] [id number] Sodium [Moles/Vol] 142 mmol/L Normal 136-145 [facility] ([place] Comment on above: Performed By: #### A DIFF, ANEU, CBC, VANCR, BMP, GFR ####[place] [address] Urea nitrogen [Mass/Vol] 77.0 mg/dL High 8.0-22.0 [facility] ([place] Comment on above: Performed By: #### A DIFF, ANEU, CBC, VANCR, BMP, GFR ####[place] [address] CBCon 04-20-2024 Erythrocyte distribution width (RBC) [Ratio] 16.3 % High 11.5-15.5 [facility] ([place] Comment on above: Performed By: #### A DIFF, ANEU, CBC, VANCR, BMP, GFR ####[place] [address] Hematocrit (Bld) [Volume fraction] 23.5 % Low 40.0-52.0 [facility] [place] Comment on above: Performed By: #### A DIFF, ANEU, CBC, VANCR, BMP, GFR ####[place] [address] Hgb 7.7 G/dL Low 13.0-17.5 [facility] ([place] Comment on above: Performed By: #### A DIFF, ANEU, CBC, VANCR, BMP, GFR ####[place] [address] MCH (RBC) [Entitic mass] 25.6 pg Low 27.0-33.0 [facility] [place] Comment on above: Performed By: #### A DIFF, ANEU, CBC, VANCR, BMP, GFR ####[place] [address] MCHC 32.8 G/dL Normal 32.0-36.0 [facility] ([place] Comment on above: Performed By: #### A DIFF, ANEU, CBC, VANCR, BMP, GFR ####[place] [address] MCV (RBC) [Entitic vol] 78.0 fL Low 81.0-100.0 A [facility] ([place] Comment on above: Performed By: #### A DIFF, ANEU, CBC, VANCR, BMP, GFR ####[place] [address] Platelet 410 10 3/mcL Normal 150-450 [facility] ([place] Comment on above: Performed By: #### A DIFF, ANEU, CBC, VANCR, BMP, GFR ####[place] [address] Platelet mean volume (Bld) [Entitic vol] 8.2 fL Normal 6.4-10.5 [facility] ([place] Comment on above: Performed By: #### A DIFF, ANEU, CBC, VANCR, BMP, GFR ####[place] [address] RBC 3.01 10 6/mcL Low 4.50-6.00 [facility] ([place] Comment on above: Performed By: #### A DIFF, ANEU, CBC, VANCR, BMP, GFR ####[place] [address] WBC 20.0 10 3/mcL High 4.5-10.8 [facility] ([place] Comment on above: Performed By: #### A DIFF, ANEU, CBC, VANCR, BMP, GFR ####[place] [address] CURon 04-20-2024 CUR Normal [facility] ([place] LABORATORYOrdered By: Aleksey Barajas on 04-20-2024 LDose [...] 04-20-2024 LDose Vancomycin: (random) See eMAR Normal [facility] ([place] Comment on above: Performed By: #### A DIFF, ANEU, CBC, VANCR, BMP, GFR ####[place] [address] Vancomycin Lvl (random) 15.8 mcg/mL Normal [facility] ([place] Comment on above: Performed By: #### A DIFF, ANEU, CBC, VANCR, BMP, GFR ####[place] [address] XR CHEST 1 VIEWon 04-20-2024 XR CHEST 1 VIEW Normal [facility] ([place] .GFRon 04-19-2024 GFR 18 ml/min/1.73sqm [facility] ([place] Comment on above: Result Comment: GFR Population [...] #### C BC, DIFF, MORPH, BMP, GFR ####[address] [address] GFR Non- 15 ml/min/1.73sqm Normal [facility] ([place] Comment on above: Result Comment: GFR Population [...] #### C BC, DIFF, MORPH, BMP, GFR ####[address] [address] .Manual Diffon 04-19-2024 Bands 2.0 % Normal 0.0-5.0 [facility] [place] Comment on above: Performed By: #### C BC, DIFF, MORPH, BMP, GFR ####[address] [address] Basophil %, Manual 0.0 % Normal 0.0-2.5 [facility] ([place] Comment on above: Performed By: #### C BC, DIFF, MORPH, BMP, GFR ####[address] [address] Basophil, Abs Manual 0.0 10 3/mcL Normal 0.0-0.3 [facility] ([place] Comment on above: Performed By: #### C BC, DIFF, MORPH, BMP, GFR ####[address] [address] Eosinophil %, Manual 1.0 % Normal 0.0-6.0 [facility] ([place] Comment on above: Performed By: #### C BC, DIFF, MORPH, BMP, GFR ####[address] [address] Eosinophil, Abs Manual 0.4 10 3/mcL Normal 0.0-0.7 [facility] ([place] Comment on above: Performed By: #### C BC, DIFF, MORPH, BMP, GFR ####[address] [address] Lymphocyte %, Manual 5.0 % Low 20.0-40.0 [facility] [place] Comment on above: Performed By: #### C BC, DIFF, MORPH, BMP, GFR ####[address] [address] Lymphocyte, Abs Manual 1.7 10 3/mcL Normal 0.9-4.3 [facility] [place] Comment on above: Performed By: #### C BC, DIFF, MORPH, BMP, GFR ####[address] [address] Monocyte %, Manual 5.0 % Normal 2.0-13.0 [facility] ([place] Comment on above: Performed By: #### C BC, DIFF, MORPH, BMP, GFR ####[address] [address] Monocyte, Abs Manual 1.7 10 3/mcL High 0.1-1.4 [facility] ([place] Comment on above: Performed By: #### C BC, DIFF, MORPH, BMP, GFR ####[address] [address] Neutrophil %, Manual 87.0 % High 50.0-75.0 [facility] [place] Comment on above: Performed By: #### C BC, DIFF, MORPH, BMP, GFR ####[address] [address] Neutrophil, Abs Manual 30.7 10 3/mcL High 2.3-8.1 [facility] ([place] Comment on above: Performed By: #### C BC, DIFF, MORPH, BMP, GFR ####[place] [address] Nucleated RBC 0.0 /100 WBC Normal [facility] ([place] Comment on above: Performed By: #### C BC, DIFF, MORPH, BMP, GFR ####[place] [address] .Morphon 04-19-2024 Anisocytosis Ql (Bld) 1+ Normal [facility] ([place] Comment on above: Performed By: #### C BC, DIFF, MORPH, BMP, GFR ####[place] [address] Large Platelets Few Normal [facility] [place] Comment on above: Performed By: #### C BC, DIFF, MORPH, BMP, GFR ####[place] [address] Microcytosis 1+ Normal [facility] ([place] Comment on above: Performed By: #### C BC, DIFF, MORPH, BMP, GFR ####[place] [address] Ovalocytes 1+ Normal [facility] ([place] Comment on above: Performed By: #### C BC, DIFF, MORPH, BMP, GFR ####[place] [address] Platelet Estimate Slt Increased Normal [facility] ([place] Comment on above: Performed By: #### C BC, DIFF, MORPH, BMP, GFR ####[place] [address] BMPon 04-19-2024 BUN/Creatinine Ratio 18.9 ratio Normal 10.0-22.0 [facility] ([place] Comment on above: Performed By: #### C BC, DIFF, MORPH, BMP, GFR ####[place] [address] Calcium [Mass/Vol] 8.0 mg/dL Low 8.7-10.4 [facility] ([place] Comment on above: Performed By: #### C BC, DIFF, MORPH, BMP, GFR ####[address] [address] Chloride [Moles/Vol] 102 mmol/L Normal 98-110 [facility] ([place] Comment on above: Performed By: #### C BC, DIFF, MORPH, BMP, GFR ####[address] [address] CO2 [Moles/Vol] 28 mmol/L Normal 22-32 [facility] ([place] Comment on above: Performed By: #### C BC, DIFF, MORPH, BMP, GFR ####[address] [address] Creatinine [Mass/Vol] 4.34 mg/dL High 0.60-1.40 [facility] ([place] Comment on above: Performed By: #### C BC, DIFF, MORPH, BMP, GFR ####[address] [address] Electrolyte Balance 8.0 mEq/L Normal 4.0-15.0 [facility] ([place] Comment on above: Performed By: #### C BC, DIFF, MORPH, BMP, GFR ####[address] [address] Glucose [Mass/Vol] 202 mg/dL High 70-110 [facility] ([place] Comment on above: Performed By: #### C BC, DIFF, MORPH, BMP, GFR ####[address] [address] Potassium [Moles/Vol] 4.1 mmol/L Normal 3.5-5.0 [facility] ([place] Comment on above: Performed By: #### C BC, DIFF, MORPH, BMP, GFR ####[address] [address] Sodium [Moles/Vol] 138 mmol/L Normal 136-145 [facility] ([place] Comment on above: Performed By: #### C BC, DIFF, MORPH, BMP, GFR ####[address] [address] Urea nitrogen [Mass/Vol] 82.0 mg/dL High 8.0-22.0 [facility] ([place] Comment on above: Performed By: #### C BC, DIFF, MORPH, BMP, GFR ####[place] [address] CBCon 04-19-2024 Erythrocyte distribution width (RBC) [Ratio] 16.2 % High 11.5-15.5 [facility] ([place] Comment on above: Performed By: #### C BC, DIFF, MORPH, BMP, GFR ####[place] [address] Hematocrit (Bld) [Volume fraction] 24.5 % Low 40.0-52.0 [facility] [place] Comment on above: Performed By: #### C BC, DIFF, MORPH, BMP, GFR ####[place] [address] Hgb 7.7 G/dL Low 13.0-17.5 [facility] [place] Comment on above: Performed By: #### C BC, DIFF, MORPH, BMP, GFR ####[place] [address] MCH (RBC) [Entitic mass] 24.8 pg Low 27.0-33.0 [facility] [place] Comment on above: Performed By: #### C BC, DIFF, MORPH, BMP, GFR ####[place] [address] MCHC 31.6 G/dL Low 32.0-36.0 [facility] [place] Comment on above: Performed By: #### C BC, DIFF, MORPH, BMP, GFR ####[place] [address] MCV (RBC) [Entitic vol] 78.6 fL Low 81.0-100.0 A [facility] ([place] Comment on above: Performed By: #### C BC, DIFF, MORPH, BMP, GFR ####[place] [address] Platelet 461 10 3/mcL High 150-450 [facility] ([place] Comment on above: Performed By: #### C BC, DIFF, MORPH, BMP, GFR ####[place] [address] Platelet mean volume (Bld) [Entitic vol] 8.4 fL Normal 6.4-10.5 [facility] ([place] Comment on above: Performed By: #### C BC, DIFF, MORPH, BMP, GFR ####[place] [address] RBC 3.12 10 6/mcL Low 4.50-6.00 [facility] ([place] Comment on above: Performed By: #### C BC, DIFF, MORPH, BMP, GFR ####[place] [address] WBC 34.6 10 3/mcL High 4.5-10.8 [facility] ([place] Comment on above: Performed By: #### C BC, DIFF, MORPH, BMP, GFR ####[place] [address] CDIFPCRon 04-19-2024 Clostridium difficile PCR Negative Normal Negative [facility] ([place] Comment on above: Result Comment: Note s 1990 Performed By: #### C DIFPCR ####[place] [address] Clostridium difficile PCR Int Normal [facility] ([place] Comment on above: Result Comment: No t cdB gene DNA detected. Negative test results may occur from improper collection, handling or storage of specimen, technical error, or extremely low levels of target below the limit of detection of the assay.See Below Performed By: #### C DIFPCR ####[place] [address] LABORATORYOrdered By: Stefano Wilkerson on 04-19-2024 Clostridium [...] not Maribell albicans Normal respiratory adela present. [facility] Comment on above: Requests for Mycopla sma, Legionella, Fungi, Mycobacteria, Chlamydia, and Viruses require ordering of those individual tests. GS 4+ Epithelial cells 4+ Polymorphonuclear cells 1+ Yeast [facility] Comment on above: Requests for Mycopla sma, Legionella, Fungi, Mycobacteria, Chlamydia, and Viruses require ordering of those individual tests. VANCRon 04-19-2024 LDose Vancomycin: (random) See eMAR Normal [facility] ([place] Comment on above: Performed By: #### V ANCR ####[place] [address] Vancomycin Lvl (random) 17.3 mcg/mL Normal [facility] ([place] Comment on above: Performed By: #### V ANCR ####[place] [address] .Auto Diffon 04-18-2024 Basophil, Absolute 0.0 10 3/mcL Normal 0.0-0.3 [facility] ([place] Comment on above: Performed By: #### C MP, ANEU, CBC, ADIFF, MORPH, DIFF, GFR ####[address] [address] Basophils/100 WBC (Bld) 0.1 % Normal 0.0-2.5 A [facility] ([place] Comment on above: Performed By: #### C MP, ANEU, CBC, ADIFF, MORPH, DIFF, GFR ####[address] [address] Eosinophil, Absolute 0.1 10 3/mcL Normal 0.0-0.7 [facility] ([place] Comment on above: Performed By: #### C MP, ANEU, CBC, ADIFF, MORPH, DIFF, GFR ####[address] [address] Eosinophils/100 WBC (Bld) 0.2 % Normal 0.0-6.0 [facility] ([place] Comment on above: Performed By: #### C MP, ANEU, CBC, ADIFF, MORPH, DIFF, GFR ####[address] [address] Lymphocyte, Absolute 1.7 10 3/mcL Normal 0.9-4.3 [facility] ([place] Comment on above: Performed By: #### C MP, ANEU, CBC, ADIFF, MORPH, DIFF, GFR ####[address] [address] Lymphocytes/100 WBC (Bld) 4.9 % Low 20.0-40.0 [facility] [place] Comment on above: Performed By: #### C MP, ANEU, CBC, ADIFF, MORPH, DIFF, GFR ####[address] [address] Monocyte, Absolute 2.6 10 3/mcL High 0.1-1.4 [facility] ([place] Comment on above: Performed By: #### C MP, ANEU, CBC, ADIFF, MORPH, DIFF, GFR ####[address] [address] Monocytes/100 WBC (Bld) 7.5 % Normal 2.0-13.0 A [facility] ([place] Comment on above: Performed By: #### C MP, ANEU, CBC, ADIFF, MORPH, DIFF, GFR ####[address] [address] Neutrophils/100 WBC (Bld) 87.3 % High 50.0-75.0 [facility] [place] Comment on above: Performed By: #### C MP, ANEU, CBC, ADIFF, MORPH, DIFF, GFR ####[address] [address] .GFRon 04-18-2024 GFR 18 ml/min/1.73sqm [facility] ([place] Comment on above: Result Comment: GFR Population [...] #### B MP, MORPH, DIFF, GFR, CBC ####[place] [address] GFR Non- 15 ml/min/1.73sqm [facility] ([place] Comment on above: Result Comment: GFR Population [...] #### B MP, MORPH, DIFF, GFR, CBC ####[place] [address] GFR Non- 15 ml/min/1.73sqm [facility] ([place] Comment on above: Result Comment: GFR Population [...] MP, ANEU, CBC, ADIFF, MORPH, DIFF, GFR ####[address] [address] GFR 18 ml/min/1.73sqm [facility] ([place] Comment on above: Result Comment: GFR Population [...] MP, ANEU, CBC, ADIFF, MORPH, DIFF, GFR ####[address] [address] .Manual Diffon 04-18-2024 Bands 2.0 % Normal 0.0-5.0 [facility] [place] Comment on above: Performed By: #### B MP, MORPH, DIFF, GFR, CBC ####[address] [address] Basophil %, Manual 0.0 % Normal 0.0-2.5 [facility] ([place] Comment on above: Performed By: #### B MP, MORPH, DIFF, GFR, CBC ####[address] [address] Basophil, Abs Manual 0.0 10 3/mcL Normal 0.0-0.3 [facility] ([place] Comment on above: Performed By: #### B MP, MORPH, DIFF, GFR, CBC ####[address] [address] Eosinophil %, Manual 0.0 % Normal 0.0-6.0 [facility] [place] Comment on above: Performed By: #### B MP, MORPH, DIFF, GFR, CBC ####[address] [address] Eosinophil, Abs Manual 0.0 10 3/mcL Normal 0.0-0.7 [facility] [place] Comment on above: Performed By: #### B MP, MORPH, DIFF, GFR, CBC ####[address] [address] Lymphocyte %, Manual 7.0 % Low 20.0-40.0 [facility] [place] Comment on above: Performed By: #### B MP, MORPH, DIFF, GFR, CBC ####[address] [address] Lymphocyte, Abs Manual 2.0 10 3/mcL Normal 0.9-4.3 [facility] [place] Comment on above: Performed By: #### B MP, MORPH, DIFF, GFR, CBC ####[address] [address] Monocyte %, Manual 6.0 % Normal 2.0-13.0 [facility] ([place] Comment on above: Performed By: #### B MP, MORPH, DIFF, GFR, CBC ####[address] [address] Monocyte, Abs Manual 1.8 10 3/mcL High 0.1-1.4 [facility] ([place] Comment on above: Performed By: #### B MP, MORPH, DIFF, GFR, CBC ####[address] [address] Neutrophil %, Manual 85.0 % High 50.0-75.0 [facility] ([place] Comment on above: Performed By: #### B MP, MORPH, DIFF, GFR, CBC ####[address] [address] Neutrophil, Abs Manual 25.3 10 3/mcL High 2.3-8.1 [facility] [place] Comment on above: Performed By: #### B MP, MORPH, DIFF, GFR, CBC ####[place] [address] Nucleated RBC 0.0 /100 WBC Normal [facility] ([place] Comment on above: Performed By: #### B MP, MORPH, DIFF, GFR, CBC ####[place] [address] Basophil %, Manual 0.0 % Normal 0.0-2.5 [facility] ([place] Comment on above: Performed By: #### C MP, ANEU, CBC, ADIFF, MORPH, DIFF, GFR ####[place] [address] Basophil, Abs Manual 0.0 10 3/mcL Normal 0.0-0.3 [facility] ([place] Comment on above: Performed By: #### C MP, ANEU, CBC, ADIFF, MORPH, DIFF, GFR ####[address] [address] Eosinophil %, Manual 0.0 % Normal 0.0-6.0 [facility] [place] Comment on above: Performed By: #### C MP, ANEU, CBC, ADIFF, MORPH, DIFF, GFR ####[address] [address] Eosinophil, Abs Manual 0.0 10 3/mcL Normal 0.0-0.7 [facility] [place] Comment on above: Performed By: #### C MP, ANEU, CBC, ADIFF, MORPH, DIFF, GFR ####[address] [address] Lymphocyte %, Manual 9.0 % Low 20.0-40.0 [facility] [place] Comment on above: Performed By: #### C MP, ANEU, CBC, ADIFF, MORPH, DIFF, GFR ####[address] [address] Lymphocyte, Abs Manual 3.2 10 3/mcL Normal 0.9-4.3 [facility] [place] Comment on above: Performed By: #### C MP, ANEU, CBC, ADIFF, MORPH, DIFF, GFR ####[place] [address] Monocyte %, Manual 4.0 % Normal 2.0-13.0 [facility] ([place] Comment on above: Performed By: #### C MP, ANEU, CBC, ADIFF, MORPH, DIFF, GFR ####[place] [address] Monocyte, Abs Manual 1.4 10 3/mcL Normal 0.1-1.4 [facility] [place] Comment on above: Performed By: #### C MP, ANEU, CBC, ADIFF, MORPH, DIFF, GFR ####[place] [address] Myelocyte 1.0 % Normal [facility] [place] Comment on above: Performed By: #### C MP, ANEU, CBC, ADIFF, MORPH, DIFF, GFR ####[address] [address] Neutrophil %, Manual 86.0 % High 50.0-75.0 [facility] [place] Comment on above: Performed By: #### C MP, ANEU, CBC, ADIFF, MORPH, DIFF, GFR ####[place] [address] Nucleated RBC 0.0 /100 WBC [facility] [place] Comment on above: Performed By: #### C MP, ANEU, CBC, ADIFF, MORPH, DIFF, GFR ####[place] [address] Neutrophil, Abs Manual 30.1 10 3/mcL High 2.3-8.1 [facility] [place] Comment on above: Performed By: #### C MP, ANEU, CBC, ADIFF, MORPH, DIFF, GFR ####[place] [address] .Morphon 04-18-2024 Platelet Estimate Normal [facility] ([place] Comment on above: Performed By: #### B MP, MORPH, DIFF, GFR, CBC ####[place] [address] Anisocytosis Ql (Bld) 1+ Normal [facility] ([place] Comment on above: Performed By: #### B MP, MORPH, DIFF, GFR, CBC ####[place] [address] Microcytosis 1+ Normal [facility] [place] Comment on above: Performed By: #### B MP, MORPH, DIFF, GFR, CBC ####[place] [address] Anisocytosis Ql (Bld) 1+ Normal [facility] [place] Comment on above: Performed By: #### C MP, ANEU, CBC, ADIFF, MORPH, DIFF, GFR ####[place] [address] Hypochrom 1+ Normal [facility] [place] Comment on above: Performed By: #### C MP, ANEU, CBC, ADIFF, MORPH, DIFF, GFR ####[place] [address] Microcytosis 1+ Normal [facility] [place] Comment on above: Performed By: #### C MP, ANEU, CBC, ADIFF, MORPH, DIFF, GFR ####[place] [address] Platelet Estimate Normal [facility] ([place] Comment on above: Performed By: #### C MP, ANEU, CBC, ADIFF, MORPH, DIFF, GFR ####[place] [address] .NEUABSon 04-18-2024 Neutrophil, Absolute 30.6 10 3/mcL High 2.3-8.1 A [facility] ([place] Comment on above: Performed By: #### C MP, ANEU, CBC, ADIFF, MORPH, DIFF, GFR ####[address] [address] BMPon 04-18-2024 BUN/Creatinine Ratio 17.8 ratio Normal 10.0-22.0 [facility] [place] Comment on above: Performed By: #### B MP, MORPH, DIFF, GFR, CBC ####[place] [address] Calcium [Mass/Vol] 7.8 mg/dL Low 8.7-10.4 [facility] ([place] Comment on above: Performed By: #### B MP, MORPH, DIFF, GFR, CBC ####[place] [address] Chloride [Moles/Vol] 101 mmol/L Normal 98-110 [facility] ([place] Comment on above: Performed By: #### B MP, MORPH, DIFF, GFR, CBC ####[place] [address] CO2 [Moles/Vol] 27 mmol/L Normal 22-32 [facility] [place] Comment on above: Performed By: #### B MP, MORPH, DIFF, GFR, CBC ####[place] [address] Creatinine [Mass/Vol] 4.38 mg/dL High 0.60-1.40 [facility] ([place] Comment on above: Performed By: #### B MP, MORPH, DIFF, GFR, CBC ####[place] [address] Electrolyte Balance 10.0 mEq/L Normal 4.0-15.0 [facility] ([place] Comment on above: Performed By: #### B MP, MORPH, DIFF, GFR, CBC ####[place] [address] Glucose [Mass/Vol] 135 mg/dL High 70-110 [facility] ([place] Comment on above: Performed By: #### B MP, MORPH, DIFF, GFR, CBC ####[place] [address] Potassium [Moles/Vol] 4.0 mmol/L Normal 3.5-5.0 [facility] ([place] Comment on above: Performed By: #### B MP, MORPH, DIFF, GFR, CBC ####[place] [address] Sodium [Moles/Vol] 138 mmol/L Normal 136-145 [facility] ([place] Comment on above: Performed By: #### B MP, MORPH, DIFF, GFR, CBC ####[place] [address] Urea nitrogen [Mass/Vol] 78.0 mg/dL High 8.0-22.0 [facility] [place] Comment on above: Performed By: #### B MP, MORPH, DIFF, GFR, CBC ####[place] [address] CBCon 04-18-2024 Erythrocyte distribution width (RBC) [Ratio] 16.2 % High 11.5-15.5 [facility] [place] Comment on above: Performed By: #### B MP, MORPH, DIFF, GFR, CBC ####[place] [address] Hematocrit (Bld) [Volume fraction] 20.8 % Low 40.0-52.0 [facility] [place] Comment on above: Performed By: #### B MP, MORPH, DIFF, GFR, CBC ####[place] [address] Hgb 6.9 G/dL Critically abnormal 13.0-17.5 [facility] [place] Comment on above: Performed By: #### B MP, MORPH, DIFF, GFR, CBC ####[place] [address] MCH (RBC) [Entitic mass] 25.4 pg Low 27.0-33.0 [facility] [place] Comment on above: Performed By: #### B MP, MORPH, DIFF, GFR, CBC ####[place] [address] MCHC 33.2 G/dL Normal 32.0-36.0 [facility] [place] Comment on above: Performed By: #### B MP, MORPH, DIFF, GFR, CBC ####[place] [address] MCV (RBC) [Entitic vol] 76.3 fL Low 81.0-100.0 A [facility] ([place] Comment on above: Performed By: #### B MP, MORPH, DIFF, GFR, CBC ####[place] [address] Platelet 416 10 3/mcL Normal 150-450 [facility] [place] Comment on above: Performed By: #### B MP, MORPH, DIFF, GFR, CBC ####[place] [address] Platelet mean volume (Bld) [Entitic vol] 8.4 fL Normal 6.4-10.5 [facility] ([place]) Comment on above: Performed By: #### B MP, MORPH, DIFF, GFR, CBC ####[place] [address] RBC 2.72 10 6/mcL Low 4.50-6.00 [facility] ([place]) Comment on above: Performed By: #### B MP, MORPH, DIFF, GFR, CBC ####[place] [address] WBC 29.1 10 3/mcL High 4.5-10.8 [facility] ([place]) Comment on above: Performed By: #### B MP, MORPH, DIFF, GFR, CBC ####[place] [address] Erythrocyte distribution width (RBC) [Ratio] 16.3 % High 11.5-15.5 [facility] [place] Comment on above: Performed By: #### C MP, ANEU, CBC, ADIFF, MORPH, DIFF, GFR ####[place] [address] Hematocrit (Bld) [Volume fraction] 20.1 % Low 40.0-52.0 [facility] ([place] Comment on above: Performed By: #### C MP, ANEU, CBC, ADIFF, MORPH, DIFF, GFR ####[place] [address] Hgb 6.5 G/dL Critically abnormal 13.0-17.5 [facility] ([place] Comment on above: Performed By: #### C MP, ANEU, CBC, ADIFF, MORPH, DIFF, GFR ####[place] [address] MCH (RBC) [Entitic mass] 24.8 pg Low 27.0-33.0 [facility] ([place] Comment on above: Performed By: #### C MP, ANEU, CBC, ADIFF, MORPH, DIFF, GFR ####[place] [address] MCHC 32.4 G/dL Normal 32.0-36.0 [facility] [place] Comment on above: Performed By: #### C MP, ANEU, CBC, ADIFF, MORPH, DIFF, GFR ####[place] [address] MCV (RBC) [Entitic vol] 76.4 fL Low 81.0-100.0 [facility] ([place]) Comment on above: Performed By: #### C MP, ANEU, CBC, ADIFF, MORPH, DIFF, GFR ####[place] [address] Platelet 441 10 3/mcL Normal 150-450 [facility] ([place] Comment on above: Performed By: #### C MP, ANEU, CBC, ADIFF, MORPH, DIFF, GFR ####[place] [address] Platelet mean volume (Bld) [Entitic vol] 8.7 fL Normal 6.4-10.5 [facility] ([place] Comment on above: Performed By: #### C MP, ANEU, CBC, ADIFF, MORPH, DIFF, GFR ####[place] [address] RBC 2.64 10 6/mcL Low 4.50-6.00 [facility] ([place] Comment on above: Performed By: #### C MP, ANEU, CBC, ADIFF, MORPH, DIFF, GFR ####[place] [address] WBC 35.1 10 3/mcL High 4.5-10.8 [facility] ([place] Comment on above: Performed By: #### C MP, ANEU, CBC, ADIFF, MORPH, DIFF, GFR ####[address] [address] CMPon 04-18-2024 Albumin Level 1.4 G/dL Low 3.2-4.8 [facility] ([place] Comment on above: Performed By: #### C MP, ANEU, CBC, ADIFF, MORPH, DIFF, GFR ####[place] [address] Albumin/Globulin [Mass ratio] 0.3 {ratio} Low 0.9-1.6 [facility] ([place] Comment on above: Performed By: #### C MP, ANEU, CBC, ADIFF, MORPH, DIFF, GFR ####[place] [address] ALP [Catalytic activity/Vol] 241 U/L High 38-126 [facility] ([place] Comment on above: Performed By: #### C MP, ANEU, CBC, ADIFF, MORPH, DIFF, GFR ####[place] [address] ALT [Catalytic activity/Vol] 16 U/L Normal 12-55 [facility] ([place] Comment on above: Performed By: #### C MP, ANEU, CBC, ADIFF, MORPH, DIFF, GFR ####[place] [address] AST [Catalytic activity/Vol] 18 U/L Normal 8-34 [facility] ([place] Comment on above: Performed By: #### C MP, ANEU, CBC, ADIFF, MORPH, DIFF, GFR ####[place] [address] Bili Total 0.30 mg/dL Normal 0.20-1.20 [facility] ([place] Comment on above: Result Comment: Use of this assay is not recommended for patients undergoing treatment with eltrombopag due to the potential for falsely elevated results. Performed By: #### C MP, ANEU, CBC, ADIFF, MORPH, DIFF, GFR ####[place] [address] BUN/Creatinine Ratio 18.0 ratio Normal 10.0-22.0 [facility] ([place] Comment on above: Performed By: #### C MP, ANEU, CBC, ADIFF, MORPH, DIFF, GFR ####[address] [address] Calcium [Mass/Vol] 7.8 mg/dL Low 8.7-10.4 [facility] ([place]) Comment on above: Performed By: #### C MP, ANEU, CBC, ADIFF, MORPH, DIFF, GFR ####[place] [address] Chloride [Moles/Vol] 100 mmol/L Normal 98-110 [facility] [place] Comment on above: Performed By: #### C MP, ANEU, CBC, ADIFF, MORPH, DIFF, GFR ####[place] [address] CO2 [Moles/Vol] 27 mmol/L Normal 22-32 [facility] ([place] Comment on above: Performed By: #### C MP, ANEU, CBC, ADIFF, MORPH, DIFF, GFR ####[place] [address] Creatinine [Mass/Vol] 4.34 mg/dL High 0.60-1.40 [facility] ([place] Comment on above: Performed By: #### C MP, ANEU, CBC, ADIFF, MORPH, DIFF, GFR ####[place] [address] Electrolyte Balance 10.0 mEq/L Normal 4.0-15.0 [facility] ([place] Comment on above: Performed By: #### C MP, ANEU, CBC, ADIFF, MORPH, DIFF, GFR ####[place] [id number] Globulin 4.9 G/dL High 1.5-3.8 [facility] ([place] Comment on above: Performed By: #### C MP, ANEU, CBC, ADIFF, MORPH, DIFF, GFR ####[place] [address] Glucose [Mass/Vol] 169 mg/dL High 70-110 [facility] ([place] Comment on above: Performed By: #### C MP, ANEU, CBC, ADIFF, MORPH, DIFF, GFR ####[address] [address] Potassium [Moles/Vol] 4.2 mmol/L Normal 3.5-5.0 [facility] ([place] Comment on above: Performed By: #### C MP, ANEU, CBC, ADIFF, MORPH, DIFF, GFR ####[address] [address] Sodium [Moles/Vol] 137 mmol/L Normal 136-145 [facility] ([place] Comment on above: Performed By: #### C MP, ANEU, CBC, ADIFF, MORPH, DIFF, GFR ####[address] [address] Total Protein 6.3 G/dL Normal 5.7-8.2 [facility] ([place] Comment on above: Result Comment: No te - New Reference Range in effect 20 Performed By: #### C MP, ANEU, CBC, ADIFF, MORPH, DIFF, GFR ####[place] [address] Urea nitrogen [Mass/Vol] 78.0 mg/dL High 8.0-22.0 [facility] ([place] Comment on above: Performed By: #### C MP, ANEU, CBC, ADIFF, MORPH, DIFF, GFR ####[address] [address] CURon 04-18-2024 CUR Normal [facility] ([place] LABORATORYOrdered By: Nelida guzmán on 04-18-2024 RBC [...] - Microbiology an d Antimicrobial susceptibilityOrdered By: [facility] on 04-18-2024 Bacteria identified Cx Nom (Bld) Culture has been received in lab and is no growth to date. Culture will be held for four weeks. [facility] Bacteria identified Cx Nom (Bld) Culture has been received in lab and is no growth to date. Culture will be held for four weeks. [facility] No Panel Informationon 04-18 Culture Urine No growth at 48 hours. [facility] Work Phone: RBC (Product)on 04-18-2024 RBC Product Ready RBC Ready for Pickup Normal [facility] ([place] Comment on above: Performed By: #### R BCP ####[place] [address] RBC Product Ready RBC Ready for Pickup Normal [facility] ([place] Comment on above: Performed By: #### R BCP ####[place] [address] RBC Product Ready RBC Ready for Pickup Normal [facility] ([place] Comment on above: Performed By: #### R BCP ####[place] [address] .GFRon 2024 GFR 18 ml/min/1.73sqm Normal [facility] ([place] Comment on above: Result Comment: GFR Population [...] L AC, PHOS, TROPHS, MG, BMP, GFR ####[address] [address] GFR Non- 15 ml/min/1.73sqm Normal [facility] ([place] Comment on above: Result Comment: GFR Population [...] L AC, PHOS, TROPHS, MG, BMP, GFR ####[address] [address] GFR 19 ml/min/1.73sqm [facility] ([place]) Comment on above: Result Comment: GFR Population [...] CMP, MG, CBC, MORPH, A1C, GFR, LAC ####[address] [address] GFR Non- 16 ml/min/1.73sqm [facility] ([place] Comment on above: Result Comment: GFR Population [...] CMP, MG, CBC, MORPH, A1C, GFR, LAC ####[address] [address] GFR Non- 15 ml/min/1.73sqm [facility] ([place] Comment on above: Result Comment: GFR Population [...] MORPH, LAC, DIFF, PHOS, MG, GFR, CMP ####[address] [address] GFR 19 ml/min/1.73sqm Normal [facility] ([place] Comment on above: Result Comment: GFR Population [...] MORPH, LAC, DIFF, PHOS, MG, GFR, CMP ####[place] [address] .Manual Diffon 2024 Bands 7.0 % High 0.0-5.0 [facility] ([place] Comment on above: Performed By: #### D IFF, PHOS, CMP, MG, CBC, MORPH, A1C, GFR, LAC ####[place] [address] Basophil %, Manual 0.0 % Normal 0.0-2.5 [facility] ([place] Comment on above: Performed By: #### D IFF, PHOS, CMP, MG, CBC, MORPH, A1C, GFR, LAC ####[place] [address] Basophil, Abs Manual 0.0 10 3/mcL Normal 0.0-0.3 [facility] ([place] Comment on above: Performed By: #### D IFF, PHOS, CMP, MG, CBC, MORPH, A1C, GFR, LAC ####[place] [address] Eosinophil %, Manual 0.0 % Normal 0.0-6.0 [facility] ([place] Comment on above: Performed By: #### D IFF, PHOS, CMP, MG, CBC, MORPH, A1C, GFR, LAC ####[place] [address] Eosinophil, Abs Manual 0.0 10 3/mcL Normal 0.0-0.7 [facility] ([place] Comment on above: Performed By: #### D IFF, PHOS, CMP, MG, CBC, MORPH, A1C, GFR, LAC ####[address] [address] Lymphocyte %, Manual 18.0 % Low 20.0-40.0 [facility] [place] Comment on above: Performed By: #### D IFF, PHOS, CMP, MG, CBC, MORPH, A1C, GFR, LAC ####[address] [address] Lymphocyte, Abs Manual 7.3 10 3/mcL High 0.9-4.3 [facility] [place] Comment on above: Performed By: #### D IFF, PHOS, CMP, MG, CBC, MORPH, A1C, GFR, LAC ####[address] [address] Metamyelocyte 2.0 % Normal [facility] [place] Comment on above: Performed By: #### D IFF, PHOS, CMP, MG, CBC, MORPH, A1C, GFR, LAC ####[address] [address] Monocyte %, Manual 8.0 % Normal 2.0-13.0 [facility] ([place] Comment on above: Performed By: #### D IFF, PHOS, CMP, MG, CBC, MORPH, A1C, GFR, LAC ####[address] [address] Monocyte, Abs Manual 3.3 10 3/mcL High 0.1-1.4 [facility] ([place] Comment on above: Performed By: #### D IFF, PHOS, CMP, MG, CBC, MORPH, A1C, GFR, LAC ####[address] [address] Neutrophil %, Manual 65.0 % Normal 50.0-75.0 [facility] [place] Comment on above: Performed By: #### D IFF, PHOS, CMP, MG, CBC, MORPH, A1C, GFR, LAC ####[address] [address] Neutrophil, Abs Manual 29.3 10 3/mcL High 2.3-8.1 [facility] [place] Comment on above: Performed By: #### D IFF, PHOS, CMP, MG, CBC, MORPH, A1C, GFR, LAC ####[place] [address] Nucleated RBC 0.0 /100 WBC Normal [facility] ([place] Comment on above: Performed By: #### D IFF, PHOS, CMP, MG, CBC, MORPH, A1C, GFR, LAC ####[address] [address] Bands 16.0 % High 0.0-5.0 [facility] [place] Comment on above: Performed By: #### C BC, MORPH, LAC, DIFF, PHOS, MG, GFR, CMP ####[place] [address] Basophil %, Manual 0.0 % Normal 0.0-2.5 [facility] ([place] Comment on above: Performed By: #### C BC, MORPH, LAC, DIFF, PHOS, MG, GFR, CMP ####[place] [id number] Basophil, Abs Manual 0.0 10 3/mcL Normal 0.0-0.3 [facility] [place] Comment on above: Performed By: #### C BC, MORPH, LAC, DIFF, PHOS, MG, GFR, CMP ####[place] [address] Eosinophil %, Manual 0.0 % Normal 0.0-6.0 [facility] [place] Comment on above: Performed By: #### C BC, MORPH, LAC, DIFF, PHOS, MG, GFR, CMP ####[place] [id number] Eosinophil, Abs Manual 0.0 10 3/mcL Normal 0.0-0.7 [facility] [place] Comment on above: Performed By: #### C BC, MORPH, LAC, DIFF, PHOS, MG, GFR, CMP ####[address] [address] Lymphocyte %, Manual 7.0 % Low 20.0-40.0 [facility] ([place] Comment on above: Performed By: #### C BC, MORPH, LAC, DIFF, PHOS, MG, GFR, CMP ####[address] [address] Lymphocyte, Abs Manual 2.9 10 3/mcL Normal 0.9-4.3 [facility] [place] Comment on above: Performed By: #### C BC, MORPH, LAC, DIFF, PHOS, MG, GFR, CMP ####[address] [address] Metamyelocyte 2.0 % Normal [facility] [place] Comment on above: Performed By: #### C BC, MORPH, LAC, DIFF, PHOS, MG, GFR, CMP ####[address] [address] Monocyte %, Manual 8.0 % Normal 2.0-13.0 [facility] ([place] Comment on above: Performed By: #### C BC, MORPH, LAC, DIFF, PHOS, MG, GFR, CMP ####[address] [address] Monocyte, Abs Manual 3.3 10 3/mcL High 0.1-1.4 [facility] ([place] Comment on above: Performed By: #### C BC, MORPH, LAC, DIFF, PHOS, MG, GFR, CMP ####[address] [address] Neutrophil %, Manual 67.0 % Normal 50.0-75.0 [facility] ([place] Comment on above: Performed By: #### C BC, MORPH, LAC, DIFF, PHOS, MG, GFR, CMP ####[address] [address] Neutrophil, Abs Manual 34.4 10 3/mcL High 2.3-8.1 [facility] [place] Comment on above: Performed By: #### C BC, MORPH, LAC, DIFF, PHOS, MG, GFR, CMP ####[place] [address] Nucleated RBC 0.0 /100 WBC Normal [facility] ([place] Comment on above: Performed By: #### C BC, MORPH, LAC, DIFF, PHOS, MG, GFR, CMP ####[place] [address] .Morphon 2024 Anisocytosis Ql (Bld) 1+ Normal [facility] ([place] Comment on above: Performed By: #### D IFF, PHOS, CMP, MG, CBC, MORPH, A1C, GFR, LAC ####[place] [address] Hypochrom 1+ Normal [facility] [place] Comment on above: Performed By: #### D IFF, PHOS, CMP, MG, CBC, MORPH, A1C, GFR, LAC ####[place] [address] Microcytosis 1+ Normal [facility] [place] Comment on above: Performed By: #### D IFF, PHOS, CMP, MG, CBC, MORPH, A1C, GFR, LAC ####[place] [address] Platelet Clumps Few Normal [facility] ([place] Comment on above: Performed By: #### D IFF, PHOS, CMP, MG, CBC, MORPH, A1C, GFR, LAC ####[place] [address] Platelet Estimate Slt Increased Normal [facility] ([place] Comment on above: Performed By: #### D IFF, PHOS, CMP, MG, CBC, MORPH, A1C, GFR, LAC ####[place] [address] Poik 1+ Normal [facility] ([place] Comment on above: Performed By: #### D IFF, PHOS, CMP, MG, CBC, MORPH, A1C, GFR, LAC ####[place] [address] Anisocytosis Ql (Bld) 1+ Normal [facility] ([place] Comment on above: Performed By: #### C BC, MORPH, LAC, DIFF, PHOS, MG, GFR, CMP ####[place] [address] Hypochrom 1+ Normal [facility] ([place] Comment on above: Performed By: #### C BC, MORPH, LAC, DIFF, PHOS, MG, GFR, CMP ####[place] [address] Microcytosis 1+ Normal [facility] [place] Comment on above: Performed By: #### C BC, MORPH, LAC, DIFF, PHOS, MG, GFR, CMP ####[place] [address] Ovalocytes 1+ Normal [facility] ([place] Comment on above: Performed By: #### C BC, MORPH, LAC, DIFF, PHOS, MG, GFR, CMP ####[place] [address] Platelet Estimate Normal Normal [facility] ([place] Comment on above: Performed By: #### C BC, MORPH, LAC, DIFF, PHOS, MG, GFR, CMP ####[place] [address] Polychrom 1+ Normal [facility] [place] Comment on above: Performed By: #### C BC, MORPH, LAC, DIFF, PHOS, MG, GFR, CMP ####[place] [address] Toxic Gran 1+ Normal [facility] [place] Comment on above: Performed By: #### C BC, MORPH, LAC, DIFF, PHOS, MG, GFR, CMP ####[place] [address] A1Con 2024 HbA1c (Bld) [Mass fraction] 14.9 % High 4.0-6.0 [facility] [place] Comment on above: Performed By: #### D IFF, PHOS, CMP, MG, CBC, MORPH, A1C, GFR, LAC ####[place] [address] ABO/Rh (Gel)on 05-30-2024 ABO/Rh Interp Positive Invalid Interpretation Code [facility] [place] Comment on above: Performed By: #### A KIMMY JONES ####[place] [id number] ABS (Gel)on 2024 ABSC Interp (Gel) Negative [facility] ([place] Comment on above: Performed By: #### A KIMMY JONES ####[place] [address] BGon 2024 Base excess Calc (Bld) [Moles/Vol] -6.2000 mmol/L Normal [facility] ([place] Comment on above: Performed By: #### B G ####[place] [address] CO2 [Moles/Vol] 20.0 mmol/L Low 22.0-30.0 [facility] [place] Comment on above: Performed By: #### B G ####[place] [address] HCO3 (Bld) [Moles/Vol] 18.9 mmol/L Low 21.0-29.0 A [facility] ([place] Comment on above: Performed By: #### B G ####[place] [address] Oxygen (Bld) [Partial pressure] 93.8 mm[Hg] Normal 74.0-108.0 [facility] ([place] Comment on above: Performed By: #### B G ####[place] [address] Oxygen saturation in Blood 97.5 % High 92.0-96.0 [facility] [place] Comment on above: Performed By: #### B G ####[place] [address] pCO2 36.0 mmHg Normal 32.0-46.0 [facility] [place] Comment on above: Performed By: #### B G ####[place] [id number] pH (Bld) 7.339 [pH] Low 7.380-7.46 0 [facility] [place] Comment on above: Performed By: #### B G ####[address] [address] Base excess Calc (Bld) [Moles/Vol] -4.8000 mmol/L Normal [facility] ([place] Comment on above: Performed By: #### B G ####[address] [address] CO2 [Moles/Vol] 24.4 mmol/L Normal 22.0-30.0 [facility] [place] Comment on above: Performed By: #### B G ####[address] [address] HCO3 (Bld) [Moles/Vol] 22.6 mmol/L Normal 21.0-29.0 A [facility] ([place] Comment on above: Performed By: #### B G ####[place] [address] Oxygen (Bld) [Partial pressure] 116.5 mm[Hg] High 74.0-108.0 [facility] [place] Comment on above: Performed By: #### B G ####[place] [address] Oxygen saturation in Blood 98.8 % High 92.0-96.0 [facility] [place] Comment on above: Performed By: #### B G ####[place] [address] pCO2 56.2 mmHg High 32.0-46.0 [facility] [place] Comment on above: Performed By: #### B G ####[place] [id number] [address] [place] [address] pH (Bld) 7.223 [pH] Low 7.380-7.46 0 [facility] [place] Comment on above: Performed By: #### B G ####[address] [address] BMPon 2024 BUN/Creatinine Ratio 17.7 ratio Normal 10.0-22.0 [facility] [place] Comment on above: Performed By: #### L AC, PHOS, TROPHS, MG, BMP, GFR ####[address] [address] Calcium [Mass/Vol] 7.8 mg/dL Low 8.7-10.4 [facility] ([place] Comment on above: Performed By: #### L AC, PHOS, TROPHS, MG, BMP, GFR ####[address] [address] Chloride [Moles/Vol] 100 mmol/L Normal 98-110 [facility] [place] Comment on above: Performed By: #### L AC, PHOS, TROPHS, MG, BMP, GFR ####[place] [address] CO2 [Moles/Vol] 25 mmol/L Normal 22-32 [facility] [place] Comment on above: Performed By: #### L AC, PHOS, TROPHS, MG, BMP, GFR ####[place] [address] Creatinine [Mass/Vol] 4.29 mg/dL High 0.60-1.40 [facility] ([place] Comment on above: Performed By: #### L AC, PHOS, TROPHS, MG, BMP, GFR ####[place] [address] Electrolyte Balance 10.0 mEq/L Normal 4.0-15.0 [facility] ([place] Comment on above: Performed By: #### L AC, PHOS, TROPHS, MG, BMP, GFR ####[place] [address] Glucose [Mass/Vol] 248 mg/dL High 70-110 [facility] ([place] Comment on above: Performed By: #### L AC, PHOS, TROPHS, MG, BMP, GFR ####[place] [address] Potassium [Moles/Vol] 5.1 mmol/L High 3.5-5.0 [facility] ([place] Comment on above: Performed By: #### L AC, PHOS, TROPHS, MG, BMP, GFR ####[address] [address] Sodium [Moles/Vol] 135 mmol/L Low 136-145 [facility] ([place] Comment on above: Performed By: #### L AC, PHOS, TROPHS, MG, BMP, GFR ####[address] [address] Urea nitrogen [Mass/Vol] 76.0 mg/dL High 8.0-22.0 [facility] [place] Comment on above: Performed By: #### L AC, PHOS, TROPHS, MG, BMP, GFR ####[place] [id number] CBCon 2024 Erythrocyte distribution width (RBC) [Ratio] 16.4 % High 11.5-15.5 [facility] [place] Comment on above: Performed By: #### D IFF, PHOS, CMP, MG, CBC, MORPH, A1C, GFR, LAC ####[place] [address] Hematocrit (Bld) [Volume fraction] 22.8 % Low 40.0-52.0 [facility] [place] Comment on above: Performed By: #### D IFF, PHOS, CMP, MG, CBC, MORPH, A1C, GFR, LAC ####[place] [address] Hgb 7.2 G/dL Low 13.0-17.5 [facility] [place] Comment on above: Performed By: #### D IFF, PHOS, CMP, MG, CBC, MORPH, A1C, GFR, LAC ####[address] [address] MCH (RBC) [Entitic mass] 24.2 pg Low 27.0-33.0 [facility] [place] Comment on above: Performed By: #### D IFF, PHOS, CMP, MG, CBC, MORPH, A1C, GFR, LAC ####[place] [address] MCHC 31.5 G/dL Low 32.0-36.0 [facility] [place] Comment on above: Performed By: #### D IFF, PHOS, CMP, MG, CBC, MORPH, A1C, GFR, LAC ####[address] [address] MCV (RBC) [Entitic vol] 76.7 fL Low 81.0-100.0 A [facility] ([place] Comment on above: Performed By: #### D IFF, PHOS, CMP, MG, CBC, MORPH, A1C, GFR, LAC ####[address] [address] Platelet 488 10 3/mcL High 150-450 [facility] [place] Comment on above: Performed By: #### D IFF, PHOS, CMP, MG, CBC, MORPH, A1C, GFR, LAC ####[address] [address] Platelet mean volume (Bld) [Entitic vol] 8.6 fL Normal 6.4-10.5 [facility] [place] Comment on above: Performed By: #### D IFF, PHOS, CMP, MG, CBC, MORPH, A1C, GFR, LAC ####[address] [address] RBC 2.97 10 6/mcL Low 4.50-6.00 [facility] ([place] Comment on above: Performed By: #### D IFF, PHOS, CMP, MG, CBC, MORPH, A1C, GFR, LAC ####[place] [phone] WBC 40.7 10 3/mcL High 4.5-10.8 [facility] [place] Comment on above: Performed By: #### D IFF, PHOS, CMP, MG, CBC, MORPH, A1C, GFR, LAC ####[address] [address] Erythrocyte distribution width (RBC) [Ratio] 16.4 % High 11.5-15.5 [facility] [place] Comment on above: Performed By: #### C BC, MORPH, LAC, DIFF, PHOS, MG, GFR, CMP ####[place] [address] Hematocrit (Bld) [Volume fraction] 23.1 % Low 40.0-52.0 [facility] [place] Comment on above: Performed By: #### C BC, MORPH, LAC, DIFF, PHOS, MG, GFR, CMP ####[place] [address] Hgb 7.3 G/dL Low 13.0-17.5 [facility] [place] Comment on above: Performed By: #### C BC, MORPH, LAC, DIFF, PHOS, MG, GFR, CMP ####[place] [address] MCH (RBC) [Entitic mass] 24.2 pg Low 27.0-33.0 [facility] [place] Comment on above: Performed By: #### C BC, MORPH, LAC, DIFF, PHOS, MG, GFR, CMP ####[place] [address] MCHC 31.5 G/dL Low 32.0-36.0 [facility] [place] Comment on above: Performed By: #### C BC, MORPH, LAC, DIFF, PHOS, MG, GFR, CMP ####[place] [address] MCV (RBC) [Entitic vol] 76.7 fL Low 81.0-100.0 A [facility] ([place] Comment on above: Performed By: #### C BC, MORPH, LAC, DIFF, PHOS, MG, GFR, CMP ####[place] [address] Platelet 485 10 3/mcL High 150-450 [facility] [place] Comment on above: Performed By: #### C BC, MORPH, LAC, DIFF, PHOS, MG, GFR, CMP ####[place] [address] Platelet mean volume (Bld) [Entitic vol] 8.3 fL Normal 6.4-10.5 [facility] [place] Comment on above: Performed By: #### C BC, MORPH, LAC, DIFF, PHOS, MG, GFR, CMP ####[place] [id number] [address] [place] [address] RBC 3.01 10 6/mcL Low 4.50-6.00 [facility] [place] Comment on above: Performed By: #### C BC, MORPH, LAC, DIFF, PHOS, MG, GFR, CMP ####[address] [address] WBC 41.5 10 3/mcL High 4.5-10.8 [facility] [place] Comment on above: Performed By: #### C BC, MORPH, LAC, DIFF, PHOS, MG, GFR, CMP ####[address] [address] CMPon 2024 Albumin Level 1.5 G/dL Low 3.2-4.8 [facility] [place] Comment on above: Performed By: #### D IFF, PHOS, CMP, MG, CBC, MORPH, A1C, GFR, LAC ####[address] [id number] Albumin/Globulin [Mass ratio] 0.3 {ratio} Low 0.9-1.6 [facility] ([place]) Comment on above: Performed By: #### D IFF, PHOS, CMP, MG, CBC, MORPH, A1C, GFR, LAC ####[address] [address] ALP [Catalytic activity/Vol] 244 U/L High 38-126 [facility] ([place]) Comment on above: Performed By: #### D IFF, PHOS, CMP, MG, CBC, MORPH, A1C, GFR, LAC ####[address] [id number] ALT [Catalytic activity/Vol] 18 U/L Normal 12-55 [facility] ([place]) Comment on above: Performed By: #### D IFF, PHOS, CMP, MG, CBC, MORPH, A1C, GFR, LAC ####[address] [address] AST [Catalytic activity/Vol] 25 U/L Normal 8-34 [facility] ([place]) Comment on above: Performed By: #### D IFF, PHOS, CMP, MG, CBC, MORPH, A1C, GFR, LAC ####[address] [address] Bili Total 0.20 mg/dL Normal 0.20-1.20 [facility] ([place]) Comment on above: Result Comment: Use of this assay is not recommended for patients undergoing treatment with eltrombopag due to the potential for falsely elevated results. Performed By: #### D IFF, PHOS, CMP, MG, CBC, MORPH, A1C, GFR, LAC ####[address] [id number] BUN/Creatinine Ratio 18.2 ratio Normal 10.0-22.0 [facility] [place] ([place]) Comment on above: Performed By: #### D IFF, PHOS, CMP, MG, CBC, MORPH, A1C, GFR, LAC ####[address] [address] Calcium [Mass/Vol] 8.1 mg/dL Low 8.7-10.4 [facility] ([place]) Comment on above: Performed By: #### D IFF, PHOS, CMP, MG, CBC, MORPH, A1C, GFR, LAC ####[address] [address] Chloride [Moles/Vol] 102 mmol/L Normal 98-110 [facility] ([place]) Comment on above: Performed By: #### D IFF, PHOS, CMP, MG, CBC, MORPH, A1C, GFR, LAC ####[address] [address] CO2 [Moles/Vol] 23 mmol/L Normal 22-32 [facility] ([place]) Comment on above: Performed By: #### D IFF, PHOS, CMP, MG, CBC, MORPH, A1C, GFR, LAC ####[address] [address] Creatinine [Mass/Vol] 4.11 mg/dL High 0.60-1.40 [facility] ([place]) Comment on above: Performed By: #### D IFF, PHOS, CMP, MG, CBC, MORPH, A1C, GFR, LAC ####[address] [address] Electrolyte Balance 11.0 mEq/L Normal 4.0-15.0 [facility] ([place]) Comment on above: Performed By: #### D IFF, PHOS, CMP, MG, CBC, MORPH, A1C, GFR, LAC ####[address] [address] Globulin 5.0 G/dL High 1.5-3.8 [facility] ([place]) Comment on above: Performed By: #### D IFF, PHOS, CMP, MG, CBC, MORPH, A1C, GFR, LAC ####[address] [address] Glucose [Mass/Vol] 191 mg/dL High 70-110 [facility] ([place]) Comment on above: Performed By: #### D IFF, PHOS, CMP, MG, CBC, MORPH, A1C, GFR, LAC ####[address] [address] Potassium [Moles/Vol] 4.5 mmol/L Normal 3.5-5.0 [facility] ([place]) Comment on above: Performed By: #### D IFF, PHOS, CMP, MG, CBC, MORPH, A1C, GFR, LAC ####[address] [address] Sodium [Moles/Vol] 136 mmol/L Normal 136-145 [facility] ([place]) Comment on above: Performed By: #### D IFF, PHOS, CMP, MG, CBC, MORPH, A1C, GFR, LAC ####[address] [address] Total Protein 6.5 G/dL Normal 5.7-8.2 [facility] ([place]) Comment on above: Result Comment: No te - New Reference Range in effect 20 Performed By: #### D IFF, PHOS, CMP, MG, CBC, MORPH, A1C, GFR, LAC ####[address] [address] Urea nitrogen [Mass/Vol] 75.0 mg/dL High 8.0-22.0 [facility] ([place] Comment on above: Performed By: #### D IFF, PHOS, CMP, MG, CBC, MORPH, A1C, GFR, LAC ####[address] [address] Albumin Level 1.5 G/dL Low 3.2-4.8 [facility] ([place] Comment on above: Performed By: #### C BC, MORPH, LAC, DIFF, PHOS, MG, GFR, CMP ####[address] [address] Albumin/Globulin [Mass ratio] 0.3 {ratio} Low 0.9-1.6 [facility] ([place] Comment on above: Performed By: #### C BC, MORPH, LAC, DIFF, PHOS, MG, GFR, CMP ####[address] [address] ALP [Catalytic activity/Vol] 231 U/L High 38-126 [facility] ([place] Comment on above: Performed By: #### C BC, MORPH, LAC, DIFF, PHOS, MG, GFR, CMP ####[address] [address] ALT [Catalytic activity/Vol] 16 U/L Normal 12-55 [facility] ([place] Comment on above: Performed By: #### C BC, MORPH, LAC, DIFF, PHOS, MG, GFR, CMP ####[address] [address] AST [Catalytic activity/Vol] 20 U/L Normal 8-34 [facility] ([place]) Comment on above: Performed By: #### C BC, MORPH, LAC, DIFF, PHOS, MG, GFR, CMP ####[place] [id number] Bili Total 0.20 mg/dL Normal 0.20-1.20 [facility] ([place]) Comment on above: Result Comment: Use of this assay is not recommended for patients undergoing treatment with eltrombopag due to the potential for falsely elevated results. Performed By: #### C BC, MORPH, LAC, DIFF, PHOS, MG, GFR, CMP ####[place] [id number] BUN/Creatinine Ratio 18.2 ratio Normal 10.0-22.0 [facility] ([place]) Comment on above: Performed By: #### C BC, MORPH, LAC, DIFF, PHOS, MG, GFR, CMP ####[address] [address] Calcium [Mass/Vol] 8.0 mg/dL Low 8.7-10.4 [facility] ([place]) Comment on above: Performed By: #### C BC, MORPH, LAC, DIFF, PHOS, MG, GFR, CMP ####[place] [address] Chloride [Moles/Vol] 104 mmol/L Normal 98-110 [facility] ([place]) Comment on above: Performed By: #### C BC, MORPH, LAC, DIFF, PHOS, MG, GFR, CMP ####[place] [id number] CO2 [Moles/Vol] 23 mmol/L Normal 22-32 [facility] ([place] Comment on above: Performed By: #### C BC, MORPH, LAC, DIFF, PHOS, MG, GFR, CMP ####[address] [address] Creatinine [Mass/Vol] 4.17 mg/dL High 0.60-1.40 [facility] ([place]) Comment on above: Performed By: #### C BC, MORPH, LAC, DIFF, PHOS, MG, GFR, CMP ####[address] [address] Electrolyte Balance 10.0 mEq/L Normal 4.0-15.0 [facility] ([place]) Comment on above: Performed By: #### C BC, MORPH, LAC, DIFF, PHOS, MG, GFR, CMP ####[address] [address] Globulin 5.1 G/dL High 1.5-3.8 [facility] ([place] Comment on above: Performed By: #### C BC, MORPH, LAC, DIFF, PHOS, MG, GFR, CMP ####[address] [address] Glucose [Mass/Vol] 218 mg/dL High 70-110 [facility] ([place]) Comment on above: Performed By: #### C BC, MORPH, LAC, DIFF, PHOS, MG, GFR, CMP ####[place] [address] Potassium [Moles/Vol] 4.7 mmol/L Normal 3.5-5.0 [facility] ([place] Comment on above: Performed By: #### C BC, MORPH, LAC, DIFF, PHOS, MG, GFR, CMP ####[place] [address] Sodium [Moles/Vol] 137 mmol/L Normal 136-145 [facility] ([place]) Comment on above: Performed By: #### C BC, MORPH, LAC, DIFF, PHOS, MG, GFR, CMP ####[place] [address] Total Protein 6.6 G/dL Normal 5.7-8.2 [facility] ([place]) Comment on above: Result Comment: No te - New Reference Range in effect 20 Performed By: #### C BC, MORPH, LAC, DIFF, PHOS, MG, GFR, CMP ####[place] [address] Urea nitrogen [Mass/Vol] 76.0 mg/dL High 8.0-22.0 [facility] ([place]) Comment on above: Performed By: #### C BC, MORPH, LAC, DIFF, PHOS, MG, GFR, CMP ####[place] [address] Final Surgical Pathology Rep [facility] 2024 Final Surgical Pathology Report Normal [facility] ([place]) [facility] 2024 Hematocrit (Bld) [Volume fraction] 20.8 % Low 40.0-52.0 [facility] ([place]) Comment on above: Performed By: #### H H ####[place] [id number] [place] [address] Hgb 6.7 G/dL Critically abnormal 13.0-17.5 [facility] ([place]) Comment on above: Performed By: #### H H ####[address] [address] LABORATORYOrdered By: Magdalene Puckett on 2024 ABO and Rh group Nom (Bld) Blood group O Rh(D) positive Invalid Interpretation Code AH BB Auto SS Blood group antibody screen Ql Negative ABSC (04/17/24 8:44 PM) Normal AH BB Auto SS LABORATORYOrdered By: Petra De Jesus on 2024 LDose Vancomycin: (random) See eMAR (04/17/24 8:44 PM) Normal AH Chemistry S LABORATORYOrdered By: [employer] on 2024 Vancomycin [Mass/Vol] 18.8 mcg/mL Invalid Interpretation Code AH ADM SS Troponin I.cardiac DL <= 0.01 ng/mL [Mass/Vol] 21 ng/L Normal 0 - 54 ng/L AH ADM SS Comment on above: Interpretive Data: High Sensitive Troponin I Reference Ranges: Female: 0-34 ng/L Male: 0-54 ng/L Testing performed on [employer] analyzer using direct chemiluminescent technology. HbA1c (Bld) [...] Lactic Acid Lvl 1.4 mmol/L Normal 0.2-2.0 [facility] ([place]) Comment on above: Performed By: #### L AC, PHOS, TROPHS, MG, BMP, GFR ####[place] [address] Lactic Acid Lvl 2.0 mmol/L Normal 0.2-2.0 [facility] ([place]) Comment on above: Performed By: #### D IFF, PHOS, CMP, MG, CBC, MORPH, A1C, GFR, LAC ####[place] [address] Lactic Acid Lvl 1.9 mmol/L Normal 0.2-2.0 [facility] ([place]) Comment on above: Order Comment: Order ed secondary to Lactic Acid result greater than or equal to 2.0 Performed By: #### L AC ####[place] [address] Lactic Acid Lvl 2.0 mmol/L Normal 0.2-2.0 [facility] ([place]) Comment on above: Performed By: #### C BC, MORPH, LAC, DIFF, PHOS, MG, GFR, CMP ####[place] [address] MGon 2024 Magnesium [Mass/Vol] 2.3 mg/dL Normal 1.6-2.4 [facility] ([place]) Comment on above: Performed By: #### L AC, PHOS, TROPHS, MG, BMP, GFR ####[place] [address] Magnesium [Mass/Vol] 1.6 mg/dL Normal 1.6-2.4 [facility] ([place]) Comment on above: Performed By: #### D IFF, PHOS, CMP, MG, CBC, MORPH, A1C, GFR, LAC ####[place] [address] Magnesium [Mass/Vol] 1.7 mg/dL Normal 1.6-2.4 [facility] ([place]) Comment on above: Performed By: #### C BC, MORPH, LAC, DIFF, PHOS, MG, GFR, CMP ####[place] [address] PHOSon 2024 Phosphate [Mass/Vol] 8.9 mg/dL High 2.4-5.1 [facility] ([place]) Comment on above: Result Comment: No te - New Reference Range in effect 20 Performed By: #### L AC, PHOS, TROPHS, MG, BMP, GFR ####[place] [address] Phosphate [Mass/Vol] 7.6 mg/dL High 2.4-5.1 [facility] ([place]) Comment on above: Result Comment: No te - New Reference Range in effect 20 Performed By: #### D IFF, PHOS, CMP, MG, CBC, MORPH, A1C, GFR, LAC ####[place] [address] Phosphate [Mass/Vol] 8.1 mg/dL High 2.4-5.1 [facility] ([place]) Comment on above: Result Comment: No te - New Reference Range in effect 20 Performed By: #### C BC, MORPH, LAC, DIFF, PHOS, MG, GFR, CMP ####[place] [address] RBC (Product)on 2024 RBC Product Ready RBC Ready for Pickup Normal [facility] ([place]) Comment on above: Performed By: #### R BCP ####[place] [address] TROPHSon 2024 High Sensitivity Troponin I 21 ng/L Normal 0-54 [facility] ([place]) Comment on above: Result Comment: High Sensitive Troponin I Reference Ranges:Female: 0-34 ng/LMale: 0-54 ng/LTesting performed on [employer] IM analyzer using direct chemiluminescent technology. Performed By: #### L AC, PHOS, TROPHS, MG, BMP, GFR ####[place] [address] VANCRon 2024 LDose Vancomycin: (random) See eMAR [facility] ([place] Comment on above: Performed By: #### V ANCR ####[place] [address] Vancomycin Lvl (random) 18.8 mcg/mL Normal [facility] ([place] Comment on above: Performed By: #### V ANCR ####[place] [address] XR CHEST 1 VIEWon 2024 XR CHEST 1 VIEW [facility] ([place] XR CHEST 1 VIEW Normal [facility] ([place]) .Auto Diffon 04-16-2024 Basophil, Absolute 0.1 10 3/mcL Normal 0.0-0.3 [facility] ([place]) Comment on above: Performed By: #### C BC, ADIFF, GFR, MORPH, BMP, ANEU ####[address] [address] Basophils/100 WBC (Bld) 0.3 % Normal 0.0-2.5 A [facility] ([place]) Comment on above: Performed By: #### C BC, ADIFF, GFR, MORPH, BMP, ANEU ####[address] [address] Eosinophil, Absolute 0.3 10 3/mcL Normal 0.0-0.7 [facility] ([place]) Comment on above: Performed By: #### C BC, ADIFF, GFR, MORPH, BMP, ANEU ####[address] [address] Eosinophils/100 WBC (Bld) 0.8 % Normal 0.0-6.0 [facility] ([place]) Comment on above: Performed By: #### C BC, ADIFF, GFR, MORPH, BMP, ANEU ####[address] [address] Lymphocyte, Absolute 1.1 10 3/mcL Normal 0.9-4.3 [facility] ([place]) Comment on above: Performed By: #### C BC, ADIFF, GFR, MORPH, BMP, ANEU ####[address] [address] Lymphocytes/100 WBC (Bld) 3.4 % Low 20.0-40.0 [facility] ([place]) Comment on above: Performed By: #### C BC, ADIFF, GFR, MORPH, BMP, ANEU ####[address] [address] Monocyte, Absolute 2.0 10 3/mcL High 0.1-1.4 [facility] ([place]) Comment on above: Performed By: #### C BC, ADIFF, GFR, MORPH, BMP, ANEU ####[address] [address] Monocytes/100 WBC (Bld) 6.5 % Normal 2.0-13.0 A [facility] ([place]) Comment on above: Performed By: #### C BC, ADIFF, GFR, MORPH, BMP, ANEU ####[address] [address] Neutrophils/100 WBC (Bld) 89.0 % High 50.0-75.0 [facility] ([place]) Comment on above: Performed By: #### C BC, ADIFF, GFR, MORPH, BMP, ANEU ####[address] [address] .GFRon 04-16-2024 GFR 21 ml/min/1.73sqm Normal [facility] ([place]) Comment on above: Result Comment: [...] C BC, ADIFF, GFR, MORPH, BMP, ANEU ####[address] [address] GFR Non- 17 ml/min/1.73sqm [facility] ([place]) Comment on above: Result Comment: [...] C BC, ADIFF, GFR, MORPH, BMP, ANEU ####[place] [address] GFR Non- 17 ml/min/1.73sqm [facility] ([place]) Comment on above: Result Comment: GFR Population [...] P RO, TROPHS, BMP, MG, GFR, PHOS ####[place] [address] GFR 21 ml/min/1.73sqm Normal [facility] ([place] Comment on above: Result Comment: GFR Population [...] P RO, TROPHS, BMP, MG, GFR, PHOS ####[place] [address] GFR 21 ml/min/1.73sqm [facility] ([place]) Comment on above: Result Comment: GFR Population [...] meters Performed By: #### R FP, GFR ####[place] [address] GFR Non- 17 ml/min/1.73sqm [facility] ([place]) Comment on above: Result Comment: GFR Population [...] meters Performed By: #### R FP, GFR ####[place] [address] .Manual Diffon 04-16-2024 Bands 1.0 % Normal 0.0-5.0 [facility] ([place]) Comment on above: Performed By: #### C AION, LAC, MORPH, DIFF, K, MG, CK, CBC, HFP ####[address] [address] Basophil %, Manual 0.0 % Normal 0.0-2.5 [facility] ([place]) Comment on above: Performed By: #### C AION, LAC, MORPH, DIFF, K, MG, CK, CBC, HFP ####[place] [address] Basophil, Abs Manual 0.0 10 3/mcL Normal 0.0-0.3 [facility] ([place]) Comment on above: Performed By: #### C AION, LAC, MORPH, DIFF, K, MG, CK, CBC, HFP ####[place] [address] Eosinophil %, Manual 0.0 % Normal 0.0-6.0 [facility] ([place]) Comment on above: Performed By: #### C AION, LAC, MORPH, DIFF, K, MG, CK, CBC, HFP ####[place] [address] Eosinophil, Abs Manual 0.0 10 3/mcL Normal 0.0-0.7 [facility] ([place] Comment on above: Performed By: #### C AION, LAC, MORPH, DIFF, K, MG, CK, CBC, HFP ####[place] [address] Lymphocyte %, Manual 4.0 % Low 20.0-40.0 [facility] ([place] Comment on above: Performed By: #### C AION, LAC, MORPH, DIFF, K, MG, CK, CBC, HFP ####[place] [address] Lymphocyte, Abs Manual 1.8 10 3/mcL Normal 0.9-4.3 [facility] ([place] Comment on above: Performed By: #### C AION, LAC, MORPH, DIFF, K, MG, CK, CBC, HFP ####[place] [address] Metamyelocyte 1.0 % Normal [facility] ([place] Comment on above: Performed By: #### C AION, LAC, MORPH, DIFF, K, MG, CK, CBC, HFP ####[place] [address] Monocyte %, Manual 10.0 % Normal 2.0-13.0 [facility] ([place]) Comment on above: Performed By: #### C AION, LAC, MORPH, DIFF, K, MG, CK, CBC, HFP ####[place] [address] Monocyte, Abs Manual 4.5 10 3/mcL High 0.1-1.4 [facility] ([place] Comment on above: Performed By: #### C AION, LAC, MORPH, DIFF, K, MG, CK, CBC, HFP ####[place] [address] Neutrophil %, Manual 84.0 % High 50.0-75.0 [facility] ([place] Comment on above: Performed By: #### C AION, LAC, MORPH, DIFF, K, MG, CK, CBC, HFP ####[place] [address] Neutrophil, Abs Manual 38.0 10 3/mcL High 2.3-8.1 [facility] ([place] Comment on above: Performed By: #### C AION, LAC, MORPH, DIFF, K, MG, CK, CBC, HFP ####[place] [address] Nucleated RBC 0.0 /100 WBC Normal [facility] ([place] Comment on above: Performed By: #### C AION, LAC, MORPH, DIFF, K, MG, CK, CBC, HFP ####[place] [address] .Morphon 04-16-2024 Anisocytosis Ql (Bld) 1+ Normal [facility] ([place] Comment on above: Performed By: #### C BC, ADIFF, GFR, MORPH, BMP, ANEU ####[place] [address] Hypochrom 1+ Normal [facility] ([place] Comment on above: Performed By: #### C BC, ADIFF, GFR, MORPH, BMP, ANEU ####[address] [address] Microcytosis 1+ Normal [facility] ([place] Comment on above: Performed By: #### C BC, ADIFF, GFR, MORPH, BMP, ANEU ####[address] [address] Platelet Estimate Normal [facility] ([place]) Comment on above: Performed By: #### C BC, ADIFF, GFR, MORPH, BMP, ANEU ####[address] [address] Toxic Gran 1+ Normal [facility] ([place] Comment on above: Performed By: #### C BC, ADIFF, GFR, MORPH, BMP, ANEU ####[place] [address] Anisocytosis Ql (Bld) 1+ Normal [facility] ([place] Comment on above: Performed By: #### C AION, LAC, MORPH, DIFF, K, MG, CK, CBC, HFP ####[address] [address] Large Platelets Few Normal [facility] ([place] Comment on above: Performed By: #### C AION, LAC, MORPH, DIFF, K, MG, CK, CBC, HFP ####[place] [address] Microcytosis 1+ Normal [facility] ([place] Comment on above: Performed By: #### C AION, LAC, MORPH, DIFF, K, MG, CK, CBC, HFP ####[address] [address] Ovalocytes 1+ Normal [facility] ([place] Comment on above: Performed By: #### C AION, LAC, MORPH, DIFF, K, MG, CK, CBC, HFP ####[place] [address] Platelet Estimate Normal [facility] ([place]) Comment on above: Performed By: #### C AION, LAC, MORPH, DIFF, K, MG, CK, CBC, HFP ####[facility] [place] [address] Poik 1+ Normal [facility] ([place] Comment on above: Performed By: #### C AION, LAC, MORPH, DIFF, K, MG, CK, CBC, HFP ####[facility] [place] [address] .NEUABSon 04-16-2024 Neutrophil, Absolute 28.0 10 3/mcL High 2.3-8.1 A [facility] ([place] Comment on above: Performed By: #### C BC, ADIFF, GFR, MORPH, BMP, ANEU ####[facility] [place] [address] AMPICILLIN+SULBACTAM:SUSC:PT :ISOLATE:ORDQN:MICon 04-16-2024 Ampicillin+Sulbactam MARTI [Susc] Light [...] days. Neisseria gonorrhoeae: Negative Ureaplasma urealyticum: Negative [facility] Work Phone: Serratia marcescens Serratia marcescens [facility] Work Phone: Ampicillin+Sulbactam MARTI [Berry sc]on 04-16-2024 Enterococcus faecalis Enterococcus faecalis [facility] Work Phone: Group B Beta Hemolytic Strep (Strep agalactiae) Group B Beta Hemolytic Strep (Strep agalactiae) [facility] Work Phone: GS 3+ Mononuclear cells 4+ Gram Positive Cocci 2+ Gram Positive Rods Rare Epithelial cells 2+ Polymorphonuclear cells [facility] Work Phone: Lactobacillus gasseri Lactobacillus gasseri [facility] Work Phone: Staphylococcus epidermidis Staphylococcus epidermidis [facility] Work Phone: on 04-16-2024 Base excess Calc (Bld) [Moles/Vol] -8.9000 mmol/L [facility] ([place] Comment on above: Performed By: #### Marco G ####[address] [address] CO2 [Moles/Vol] 17.6 mmol/L Low 22.0-30.0 [facility] ([place]) Comment on above: Performed By: #### Marco G ####[address] [address] HCO3 (Bld) [Moles/Vol] 16.5 mmol/L Low 21.0-29.0 A [facility] ([place]) Comment on above: Performed By: #### Marco G ####[address] [address] Oxygen (Bld) [Partial pressure] 110.9 mm[Hg] High 74.0-108.0 [facility] ([place]) Comment on above: Performed By: #### Marco G ####[address] [address] Oxygen saturation in Blood 98.9 % High 92.0-96.0 [facility] ([place]) Comment on above: Performed By: #### B G ####[address] [address] pCO2 33.7 mmHg Normal 32.0-46.0 [facility] ([place]) Comment on above: Performed By: #### Marco G ####[address] [address] pH (Bld) 7.309 [pH] Low 7.380-7.46 0 [facility] ([place]) Comment on above: Performed By: #### Marco G ####[address] [address] Base excess Calc (Bld) [Moles/Vol] -10.89369 mmol/L Normal [facility] ([place]) Comment on above: Performed By: #### Marco G ####[address] [address] CO2 [Moles/Vol] 16.3 mmol/L Low 22.0-30.0 [facility] ([place]) Comment on above: Performed By: #### B G ####[address] [address] HCO3 (Bld) [Moles/Vol] 15.3 mmol/L Low 21.0-29.0 A [facility] ([place]) Comment on above: Performed By: #### B G ####[address] [address] Oxygen (Bld) [Partial pressure] 137.0 mm[Hg] High 74.0-108.0 [facility] ([place]) Comment on above: Performed By: #### B G ####[place] [id number] Oxygen saturation in Blood 99.7 % High 92.0-96.0 [facility] ([place]) Comment on above: Performed By: #### B G ####[address] [address] pCO2 33.0 mmHg Normal 32.0-46.0 [facility] ([place]) Comment on above: Performed By: #### B G ####[place] [id number] pH (Bld) 7.284 [pH] Low 7.380-7.46 0 [facility] ([place]) Comment on above: Performed By: #### B G ####[place] [id number] Base excess Calc (Bld) [Moles/Vol] -14.99917 mmol/L Normal [facility] ([place]) Comment on above: Order Comment: vrb- called critical pH to CELSO Raman 04/16/2024 04:27:43 EDT SAS Performed By: #### B G ####[address] [address] CO2 [Moles/Vol] 16.3 mmol/L Low 22.0-30.0 [facility] ([place]) Comment on above: Order Comment: vrb- called critical pH to CELSO Raman 04/16/2024 04:27:43 EDT SAS Performed By: #### B G ####[address] [address] HCO3 (Bld) [Moles/Vol] 14.8 mmol/L Low 21.0-29.0 A [facility] ([place] Comment on above: Order Comment: vrb- called critical pH to CELSO Raman 04/16/2024 04:27:43 EDT [employer] Performed By: #### B G ####[place] [id number] Oxygen (Bld) [Partial pressure] 86.3 mm[Hg] Normal 74.0-108.0 [facility] ([place]) Comment on above: Order Comment: vrb- called critical pH to CELSO Raman 04/16/2024 04:27:43 EDT SAS Performed By: #### B G ####[place] [address] Oxygen saturation in Blood 95.4 % Normal 92.0-96.0 [facility] ([place]) Comment on above: Order Comment: vrb- called critical pH to CELSO Raman 04/16/2024 04:27:43 EDT [employer] Performed By: #### B G ####[place] [address] pCO2 48.6 mmHg High 32.0-46.0 [facility] [place] Comment on above: Order Comment: vrb- called critical pH to CELSO Raman 04/16/2024 04:27:43 EDT [employer] Performed By: #### B G ####[address] [address] pH (Bld) 7.102 [pH] Critically abnormal 7.380-7.46 0 [facility] ([place]) Comment on above: Order Comment: vrb- called critical pH to CELSO Raman 04/16/2024 04:27:43 EDT [employer] Performed By: #### B G ####[address] [address] Base excess Calc (Bld) [Moles/Vol] -15.83089 mmol/L [facility] ([place] Comment on above: Performed By: #### B G ####[place] [address] CO2 [Moles/Vol] 13.1 mmol/L Low 22.0-30.0 [facility] ([place] Comment on above: Performed By: #### B G ####[place] [id number] HCO3 (Bld) [Moles/Vol] 12.1 mmol/L Low 21.0-29.0 A [facility] ([place] Comment on above: Performed By: #### B G ####[place] [id number] Oxygen (Bld) [Partial pressure] 124.7 mm[Hg] High 74.0-108.0 [facility] ([place] Comment on above: Performed By: #### B G ####[place] [address] Oxygen saturation in Blood 98.9 % High 92.0-96.0 [facility] ([place] Comment on above: Performed By: #### B G ####[place] [address] pCO2 33.1 mmHg Normal 32.0-46.0 [facility] ([place] Comment on above: Performed By: #### B G ####[place] [address] pH (Bld) 7.182 [pH] Critically abnormal 7.380-7.46 0 [facility] ([place] Comment on above: Performed By: #### B G ####[place] [id number] BMPon 04-16-2024 BUN/Creatinine Ratio 20.5 ratio Normal 10.0-22.0 [facility] ([place] Comment on above: Performed By: #### C BC, ADIFF, GFR, MORPH, BMP, ANEU ####[place] [address] Calcium [Mass/Vol] 8.3 mg/dL Low 8.7-10.4 [facility] ([place]) Comment on above: Performed By: #### C BC, ADIFF, GFR, MORPH, BMP, ANEU ####[address] [address] Chloride [Moles/Vol] 107 mmol/L Normal 98-110 [facility] ([place] Comment on above: Performed By: #### C BC, ADIFF, GFR, MORPH, BMP, ANEU ####[address] [address] CO2 [Moles/Vol] 19 mmol/L Low 22-32 [facility] ([place] Comment on above: Performed By: #### C BC, ADIFF, GFR, MORPH, BMP, ANEU ####[address] [address] Creatinine [Mass/Vol] 3.86 mg/dL High 0.60-1.40 [facility] ([place] Comment on above: Performed By: #### C BC, ADIFF, GFR, MORPH, BMP, ANEU ####[address] [address] Electrolyte Balance 8.0 mEq/L Normal 4.0-15.0 [facility] ([place]) Comment on above: Performed By: #### C BC, ADIFF, GFR, MORPH, BMP, ANEU ####[address] [address] Glucose [Mass/Vol] 337 mg/dL High 70-110 [facility] ([place]) Comment on above: Performed By: #### C BC, ADIFF, GFR, MORPH, BMP, ANEU ####[address] [address] Potassium [Moles/Vol] 5.0 mmol/L Normal 3.5-5.0 [facility] ([place] Comment on above: Performed By: #### C BC, ADIFF, GFR, MORPH, BMP, ANEU ####[address] [address] Sodium [Moles/Vol] 134 mmol/L Low 136-145 [facility] ([place]) Comment on above: Performed By: #### C BC, ADIFF, GFR, MORPH, BMP, ANEU ####[address] [address] Urea nitrogen [Mass/Vol] 79.0 mg/dL High 8.0-22.0 [facility] ([place] Comment on above: Performed By: #### C BC, ADIFF, GFR, MORPH, BMP, ANEU ####[place] [id number] BUN/Creatinine Ratio 20.7 ratio Normal 10.0-22.0 [facility] ([place]) Comment on above: Performed By: #### P RO, TROPHS, BMP, MG, GFR, PHOS ####[address] [address] Calcium [Mass/Vol] 8.8 mg/dL Normal 8.7-10.4 [facility] ([place]) Comment on above: Performed By: #### P RO, TROPHS, BMP, MG, GFR, PHOS ####[place] [address] Chloride [Moles/Vol] 107 mmol/L Normal 98-110 [facility] ([place] Comment on above: Performed By: #### P RO, TROPHS, BMP, MG, GFR, PHOS ####[place] [id number] CO2 [Moles/Vol] 19 mmol/L Low 22-32 [facility] ([place] Comment on above: Performed By: #### P RO, TROPHS, BMP, MG, GFR, PHOS ####[address] [address] Creatinine [Mass/Vol] 3.82 mg/dL High 0.60-1.40 [facility] ([place] Comment on above: Performed By: #### P RO, TROPHS, BMP, MG, GFR, PHOS ####[address] [address] Electrolyte Balance 8.0 mEq/L Normal 4.0-15.0 [facility] ([place] Comment on above: Performed By: #### P RO, TROPHS, BMP, MG, GFR, PHOS ####[place] [address] Glucose [Mass/Vol] 421 mg/dL Critically abnormal 70-110 [facility] ([place] Comment on above: Performed By: #### P RO, TROPHS, BMP, MG, GFR, PHOS ####[place] [address] Potassium [Moles/Vol] 6.3 mmol/L Critically abnormal 3.5-5.0 [facility] ([place] Comment on above: Performed By: #### P RO, TROPHS, BMP, MG, GFR, PHOS ####[place] [address] Sodium [Moles/Vol] 134 mmol/L Low 136-145 [facility] ([place] Comment on above: Performed By: #### P RO, TROPHS, BMP, MG, GFR, PHOS ####[place] [address] Urea nitrogen [Mass/Vol] 79.0 mg/dL High 8.0-22.0 [facility] ([place] Comment on above: Performed By: #### P RO, TROPHS, BMP, MG, GFR, PHOS ####[place] [address] CAIONon 04-16-2024 Calcium Ionized 1.12 mmol/L Normal 1.12-1.32 [facility] ([place] Comment on above: Performed By: #### C AION, LAC, MORPH, DIFF, K, MG, CK, CBC, HFP ####[place] [address] CBCon 04-16-2024 Erythrocyte distribution width (RBC) [Ratio] 16.3 % High 11.5-15.5 [facility] ([place] Comment on above: Performed By: #### C BC, ADIFF, GFR, MORPH, BMP, ANEU ####[place] [address] Hematocrit (Bld) [Volume fraction] 22.2 % Low 40.0-52.0 [facility] ([place] Comment on above: Performed By: #### C BC, ADIFF, GFR, MORPH, BMP, ANEU ####[place] [address] Hgb 7.0 G/dL Low 13.0-17.5 [facility] ([place] Comment on above: Performed By: #### C BC, ADIFF, GFR, MORPH, BMP, ANEU ####[place] [address] MCH (RBC) [Entitic mass] 24.6 pg Low 27.0-33.0 [facility] ([place] Comment on above: Performed By: #### C BC, ADIFF, GFR, MORPH, BMP, ANEU ####[place] [address] MCHC 31.8 G/dL Low 32.0-36.0 [facility] ([place] Comment on above: Performed By: #### C BC, ADIFF, GFR, MORPH, BMP, ANEU ####[place] [address] MCV (RBC) [Entitic vol] 77.3 fL Low 81.0-100.0 A [facility] ([place] Comment on above: Performed By: #### C BC, ADIFF, GFR, MORPH, BMP, ANEU ####[place] [address] Platelet 445 10 3/mcL Normal 150-450 [facility] ([place] Comment on above: Performed By: #### C BC, ADIFF, GFR, MORPH, BMP, ANEU ####[place] [address] Platelet mean volume (Bld) [Entitic vol] 8.5 fL Normal 6.4-10.5 [facility] ([place] Comment on above: Performed By: #### C BC, ADIFF, GFR, MORPH, BMP, ANEU ####[place] [address] RBC 2.86 10 6/mcL Low 4.50-6.00 [facility] ([place] Comment on above: Performed By: #### C BC, ADIFF, GFR, MORPH, BMP, ANEU ####[place] [address] WBC 31.4 10 3/mcL High 4.5-10.8 [facility] ([place] Comment on above: Performed By: #### C BC, ADIFF, GFR, MORPH, BMP, ANEU ####[place] [address] Erythrocyte distribution width (RBC) [Ratio] 16.5 % High 11.5-15.5 [facility] ([place] Comment on above: Performed By: #### C AION, LAC, MORPH, DIFF, K, MG, CK, CBC, HFP ####[place] [address] Hematocrit (Bld) [Volume fraction] 24.4 % Low 40.0-52.0 [facility] ([place] Comment on above: Performed By: #### C AION, LAC, MORPH, DIFF, K, MG, CK, CBC, HFP ####[place] [address] Hgb 7.5 G/dL Low 13.0-17.5 [facility] ([place] Comment on above: Performed By: #### C AION, LAC, MORPH, DIFF, K, MG, CK, CBC, HFP ####[place] [address] MCH (RBC) [Entitic mass] 24.2 pg Low 27.0-33.0 [facility] ([place] Comment on above: Performed By: #### C AION, LAC, MORPH, DIFF, K, MG, CK, CBC, HFP ####[place] [address] MCHC 30.8 G/dL Low 32.0-36.0 [facility] ([place] Comment on above: Performed By: #### C AION, LAC, MORPH, DIFF, K, MG, CK, CBC, HFP ####[place] [address] MCV (RBC) [Entitic vol] 78.7 fL Low 81.0-100.0 A [facility] ([place] Comment on above: Performed By: #### C AION, LAC, MORPH, DIFF, K, MG, CK, CBC, HFP ####[address] [address] Platelet 485 10 3/mcL High 150-450 [facility] ([place] Comment on above: Performed By: #### C AION, LAC, MORPH, DIFF, K, MG, CK, CBC, HFP ####[place] [address] Platelet mean volume (Bld) [Entitic vol] 8.5 fL Normal 6.4-10.5 [facility] ([place] Comment on above: Performed By: #### C AION, LAC, MORPH, DIFF, K, MG, CK, CBC, HFP ####[address] [address] RBC 3.10 10 6/mcL Low 4.50-6.00 [facility] ([place] Comment on above: Performed By: #### C AION, LAC, MORPH, DIFF, K, MG, CK, CBC, HFP ####[address] [address] WBC 44.8 10 3/mcL High 4.5-10.8 [facility] ([place] Comment on above: Performed By: #### C AION, LAC, MORPH, DIFF, K, MG, CK, CBC, HFP ####[place] [address] CKon 04-16-2024 CK [Catalytic activity/Vol] 48 U/L Normal 7-185 [facility] ([place] Comment on above: Performed By: #### C AION, LAC, MORPH, DIFF, K, MG, CK, CBC, HFP ####[place] [address] HFPon 04-16-2024 Bili Indirect Unable to Calculate Normal 0.1-10.0 [facility] ([place]) Comment on above: Result Comment: Unab le to calculate this test result accurately. Results used to calculate this test are outside the reportable range. Performed By: #### C AION, LAC, MORPH, DIFF, K, MG, CK, CBC, HFP ####[place] [address] Albumin Level 1.2 G/dL Low 3.2-4.8 [facility] ([place] Comment on above: Performed By: #### C AION, LAC, MORPH, DIFF, K, MG, CK, CBC, HFP ####[place] [address] Albumin/Globulin [Mass ratio] 0.3 {ratio} Low 0.9-1.6 [facility] ([place] Comment on above: Performed By: #### C AION, LAC, MORPH, DIFF, K, MG, CK, CBC, HFP ####[place] [address] ALP [Catalytic activity/Vol] 190 U/L High 38-126 [facility] ([place] Comment on above: Performed By: #### C AION, LAC, MORPH, DIFF, K, MG, CK, CBC, HFP ####[place] [address] ALT [Catalytic activity/Vol] 13 U/L Normal 12-55 [facility] ([place] Comment on above: Performed By: #### C AION, LAC, MORPH, DIFF, K, MG, CK, CBC, HFP ####[place] [address] AST [Catalytic activity/Vol] 17 U/L Normal 8-34 [facility] ([place] Comment on above: Performed By: #### C AION, LAC, MORPH, DIFF, K, MG, CK, CBC, HFP ####[place] [address] Bili Direct 0.1 mg/dL Normal 0.0-0.4 [facility] ([place] Comment on above: Result Comment: Use of this assay is not recommended for patients undergoing treatment with eltrombopag due to the potential for falsely elevated results. Performed By: #### C AION, LAC, MORPH, DIFF, K, MG, CK, CBC, HFP ####[place] [address] Bili Total <0.20 Normal 0.20-1.20 [facility] ([place] Comment on above: Result Comment: Use of this assay is not recommended for patients undergoing treatment with eltrombopag due to the potential for falsely elevated results. Performed By: #### C AION, LAC, MORPH, DIFF, K, MG, CK, CBC, HFP ####[place] [address] Globulin 4.7 G/dL High 1.5-3.8 [facility] ([place] Comment on above: Performed By: #### C AION, LAC, MORPH, DIFF, K, MG, CK, CBC, HFP ####[place] [address] Total Protein 5.9 G/dL Normal 5.7-8.2 [facility] ([place] Comment on above: Result Comment: No te - New Reference Range in effect 20 Performed By: #### C AION, LAC, MORPH, DIFF, K, MG, CK, CBC, HFP ####[place] [address] HHon 04-16-2024 Hematocrit (Bld) [Volume fraction] 22.8 % Low 40.0-52.0 [facility] ([place] Comment on above: Performed By: #### H H, K ####[place] [address] Hgb 7.2 G/dL Low 13.0-17.5 [facility] ([place] Comment on above: Performed By: #### H H, K ####[place] [address] Rainer 04-16-2024 Potassium [Moles/Vol] 4.8 mmol/L Normal 3.5-5.0 [facility] ([place] Comment on above: Performed By: #### H H, K ####[place] [address] Potassium [Moles/Vol] 5.8 mmol/L High 3.5-5.0 [facility] ([place] Comment on above: Performed By: #### K ####[address] [address] Potassium [Moles/Vol] 7.1 mmol/L Critically abnormal 3.5-5.0 [facility] ([place] Comment on above: Performed By: #### C AION, LAC, MORPH, DIFF, K, MG, CK, CBC, HFP ####[place] [address] LABORATORYOrdered By: SYSTEM SYSTEM on 04-16-2024 Bili [...] Lactic Acid Lvl 1.8 mmol/L Normal 0.2-2.0 [facility] ([place] Comment on above: Performed By: #### L AC ####[place] [address] Lactic Acid Lvl 1.2 mmol/L Normal 0.2-2.0 [facility] ([place] Comment on above: Performed By: #### L AC ####[address] [address] Lactic Acid Lvl 1.3 mmol/L Normal 0.2-2.0 [facility] ([place] Comment on above: Performed By: #### L AC ####[place] [address] Lactic Acid Lvl 1.3 mmol/L Normal 0.2-2.0 [facility] ([place] Comment on above: Performed By: #### C AION, LAC, MORPH, DIFF, K, MG, CK, CBC, HFP ####[address] [address] MGon 04-16-2024 Magnesium [Mass/Vol] 1.8 mg/dL Normal 1.6-2.4 [facility] ([place] Comment on above: Performed By: #### P RO, TROPHS, BMP, MG, GFR, PHOS ####[address] [address] Magnesium [Mass/Vol] 1.9 mg/dL Normal 1.6-2.4 [facility] ([place] Comment on above: Performed By: #### C AION, LAC, MORPH, DIFF, K, MG, CK, CBC, HFP ####[address] [address] No Panel Informationon 04-16 Culture Urine No growth at 48 hours. [facility] Work Phone: Culture Wound Deep Panel Light Group B Beta Hemolytic Strep (Strep agalactiae) Sensitivity testing is not recommended for one of the following reasons: 1. Established susceptibility patterns are available or 2. Interpretative criteria are not available. Light Serratia marcescens Refer to previous culture for susceptibility. [id number] Moderate Normal skin adela present. Sensitivity testing not indicated. No anaerobes isolated at 5 days. Neisseria gonorrhoeae: Negative Ureaplasma urealyticum: Negative [facility] Work Phone: GS 2+ Gram Positive Luis Angel s 1+ Gram Positive Cocci Rare Mononuclear cells [facility] Work Phone: PHOSon 04-16-2024 Phosphate [Mass/Vol] 8.7 mg/dL High 2.4-5.1 [facility] ([place] Comment on above: Result Comment: No te - New Reference Range in effect 20 Performed By: #### P RO, TROPHS, BMP, MG, GFR, PHOS ####[address] [address] PROon 04-16-2024 INR Coag (PPP) [Relative time] 1.4 {INR} Normal [facility] ([place] Comment on above: Result Comment: [employer] (CHEST, 1992, 102:[id number])recommended therapeutic range for oral anticoagulant therapy is:LOW RISK: Prophylaxis of venous thrombosis INR: 2.0-3.0 Treatment of pulmonary embolism 2.0-3.0 Prevention of systemic embolism 2.0-3.0HIGH RISK: Mechanical prosthetic valves 2.5-3.5 Performed By: #### P RO, TROPHS, BMP, MG, GFR, PHOS ####[address] [address] PT Coag (PPP) [Time] 15.8 s High 9.0-14.4 [facility] ([place] Comment on above: Result Comment: Effe ctive 06/02/08, Protime results may be affected by some antibiotics (i.e. Ciprofloxacin, Azithromycin, Bactrim) which may potentiate the action of oral anticoagulants, with further increases in Protime/INR. Performed By: #### P RO, TROPHS, BMP, MG, GFR, PHOS ####[address] [address] RFPon 04-16-2024 Albumin Level 1.7 G/dL Low 3.2-4.8 [facility] ([place] Comment on above: Order Comment: pleas e use previously drawn labs Performed By: #### R FP, GFR ####[address] [address] BUN/Creatinine Ratio 20.8 ratio Normal 10.0-22.0 [facility] ([place] Comment on above: Order Comment: pleas e use previously drawn labs Performed By: #### R FP, GFR ####[address] [address] Calcium [Mass/Vol] 8.3 mg/dL Low 8.7-10.4 [facility] ([place]) Comment on above: Order Comment: pleas e use previously drawn labs Performed By: #### R FP, GFR ####[address] [address] Chloride [Moles/Vol] 107 mmol/L Normal 98-110 [facility] ([place] Comment on above: Order Comment: pleas e use previously drawn labs Performed By: #### R FP, GFR ####[address] [address] CO2 [Moles/Vol] 16 mmol/L Low 22-32 [facility] ([place] Comment on above: Order Comment: pleas e use previously drawn labs Performed By: #### R FP, GFR ####[address] [address] Creatinine [Mass/Vol] 3.79 mg/dL High 0.60-1.40 [facility] ([place] Comment on above: Order Comment: pleas e use previously drawn labs Performed By: #### R FP, GFR ####[address] [address] Electrolyte Balance 10.0 mEq/L Normal 4.0-15.0 [facility] ([place] Comment on above: Order Comment: pleas e use previously drawn labs Performed By: #### R FP, GFR ####[address] [address] Glucose [Mass/Vol] 354 mg/dL High 70-110 [facility] ([place] Comment on above: Order Comment: pleas e use previously drawn labs Performed By: #### R FP, GFR ####[address] [address] Phosphate [Mass/Vol] 8.8 mg/dL High 2.4-5.1 [facility] ([place] Comment on above: Order Comment: pleas e use previously drawn labs Result Comment: No te - New Reference Range in effect 20 Performed By: #### R FP, GFR ####[address] [address] Potassium [Moles/Vol] 6.8 mmol/L Critically abnormal 3.5-5.0 [facility] [place] Comment on above: Order Comment: pleas e use previously drawn labs Performed By: #### R FP, GFR ####[address] [address] Sodium [Moles/Vol] 133 mmol/L Low 136-145 [facility] ([place] Comment on above: Order Comment: pleas e use previously drawn labs Performed By: #### R FP, GFR ####[place] [address] Urea nitrogen [Mass/Vol] 79.0 mg/dL High 8.0-22.0 [facility] ([place] Comment on above: Order Comment: pleas e use previously drawn labs Performed By: #### R FP, GFR ####[place] [address] TROPHSon 04-16-2024 High Sensitivity Troponin I 6 ng/L Normal 0-54 [facility] ([place] Comment on above: Result Comment: High Sensitive Troponin I Reference Ranges:Female: 0-34 ng/LMale: 0-54 ng/LTesting performed on [employer] IM analyzer using direct chemiluminescent technology. Performed By: #### P RO, TROPHS, BMP, MG, GFR, PHOS ####[place] [address] VANCRon 04-16-2024 LDose Vancomycin: (random) See eMAR Normal [facility] ([place] Comment on above: Performed By: #### V ANCR ####[place] [address] Vancomycin Lvl (random) 16.5 mcg/mL Normal [facility] ([place] Comment on above: Performed By: #### V ANCR ####[place] [address] XR CHEST 1 VIEWon 04-16-2024 XR CHEST 1 VIEW Normal [facility]) XR CHEST 1 VIEW Normal [facility]) XR CHEST 1 VIEW Normal [facility] ([place] XR ENTERIC TUBE PLACEMENTon 04-16-2024 XR ENTERIC TUBE PLACEMENT Normal [facility]) .Auto Diffon 04-15-2024 Basophil, Absolute 0.1 10 3/mcL Normal 0.0-0.2 [facility]) Comment on above: Performed By: #### M ORPH, CMP, PHV, MDW, CBC, GFR, ADIFF, ANEU, PRO, LAC, DOMITILA, DIFF ####[address] [place], [place] [address] Basophils/100 WBC (Bld) 0.2 % Normal 0.0-2.5 A [facility] ([place] Comment on above: Performed By: #### M ORPH, CMP, PHV, MDW, CBC, GFR, ADIFF, ANEU, PRO, LAC, DOMITILA, DIFF ####[place] [id number] [place], [place] [address] Eosinophil, Absolute 0.2 10 3/mcL Normal 0.0-0.4 [facility] ([place]) Comment on above: Performed By: #### M ORPH, CMP, PHV, MDW, CBC, GFR, ADIFF, ANEU, PRO, LAC, DOMITILA, DIFF ####[place] [id number] [place], [place] [address] Eosinophils/100 WBC (Bld) 0.5 % Normal 0.0-7.0 [facility] [place] Comment on above: Performed By: #### M ORPH, CMP, PHV, MDW, CBC, GFR, ADIFF, ANEU, PRO, LAC, DOMITILA, DIFF ####[place] [id number] [place], [place] [address] Lymphocyte, Absolute 1.9 10 3/mcL Normal 0.8-3.9 [facility] ([place] Comment on above: Performed By: #### M ORPH, CMP, PHV, MDW, CBC, GFR, ADIFF, ANEU, PRO, LAC, DOMITILA, DIFF ####[place] [address] [place], [place] [address] Lymphocytes/100 WBC (Bld) 4.0 % Low 10.0-50.0 [facility] [place] Comment on above: Performed By: #### M ORPH, CMP, PHV, MDW, CBC, GFR, ADIFF, ANEU, PRO, LAC, DOMITILA, DIFF ####[place] [id number] [place], [place] [address] Monocyte, Absolute 2.7 10 3/mcL High 0.2-1.0 [facility] ([place] Comment on above: Performed By: #### M ORPH, CMP, PHV, MDW, CBC, GFR, ADIFF, ANEU, PRO, LAC, DOMITILA, DIFF ####[place] [address] [place], [place] [address] Monocytes/100 WBC (Bld) 5.8 % Normal 1.7-13.0 A [facility] ([place] Comment on above: Performed By: #### M ORPH, CMP, PHV, MDW, CBC, GFR, ADIFF, ANEU, PRO, LAC, DOMITILA, DIFF ####[place] [id number] [place], [place] [address] Neutrophils/100 WBC (Bld) 89.5 % High 37.0-80.0 [facility] ([place]) Comment on above: Performed By: #### M ORPH, CMP, PHV, MDW, CBC, GFR, ADIFF, ANEU, PRO, LAC, DOMITILA, DIFF ####[place] [id number] [place], [place] [address] .GFRon 04-15-2024 GFR Non- 13 ml/min/1.73sqm Normal [facility] ([place]) Comment on above: Result Comment: [...] ANEU, PRO, LAC, DOMITILA, DIFF ####[address] [place], [place] [address] GFR 15 ml/min/1.73sqm Normal [facility] ([place]) Comment on above: Result Comment: [...] ANEU, PRO, LAC, DOMITILA, DIFF ####[place] [place], [place] [address] .MDWon 04-15-2024 Monocyte Distribution Width 23.75 High 0.00-20.00 [facility] [place] Comment on above: Result Comment: For adults in ED, MDW>20.0 may be associated with a higher risk of sepsis during the first 12hrs of hospital admissionThe predictive value of MDW for identifying sepsis in patients with hematological abnormalities has not been established Performed By: #### M ORPH, CMP, PHV, MDW, CBC, GFR, ADIFF, ANEU, PRO, LAC, DOMITILA, DIFF ####[place] [place], [place] [address] .Manual Diffon 04-15-2024 Bands 10.0 % High 0.0-5.0 [facility] ([place] Comment on above: Performed By: #### M ORPH, CMP, PHV, MDW, CBC, GFR, ADIFF, ANEU, PRO, LAC, DOMITILA, DIFF ####[place] [address] [place], [place] [address] Basophil %, Manual 0.0 % Normal 0.0-2.5 [facility] ([place] Comment on above: Performed By: #### M ORPH, CMP, PHV, MDW, CBC, GFR, ADIFF, ANEU, PRO, LAC, DOMITILA, DIFF ####[address] [place], [place] [address] Basophil, Abs Manual 0.0 10 3/mcL Normal 0.0-0.2 [facility] ([place] Comment on above: Performed By: #### M ORPH, CMP, PHV, MDW, CBC, GFR, ADIFF, ANEU, PRO, LAC, DOMITILA, DIFF ####[address] [place], [place] [address] Eosinophil %, Manual 0.0 % Normal 0.0-7.0 [facility] ([place] Comment on above: Performed By: #### M ORPH, CMP, PHV, MDW, CBC, GFR, ADIFF, ANEU, PRO, LAC, DOMITILA, DIFF ####[address] [place], [place] [address] Eosinophil, Abs Manual 0.0 10 3/mcL Normal 0.0-0.4 [facility] [place] Comment on above: Performed By: #### M ORPH, CMP, PHV, MDW, CBC, GFR, ADIFF, ANEU, PRO, LAC, DOMITILA, DIFF ####[place] [place], [place] [address] Lymphocyte %, Manual 4.0 % Low 10.0-50.0 [facility] ([place] Comment on above: Performed By: #### M ORPH, CMP, PHV, MDW, CBC, GFR, ADIFF, ANEU, PRO, LAC, DOMITLIA, DIFF ####[address] [place], [place] [address] Lymphocyte, Abs Manual 1.9 10 3/mcL Normal 0.8-3.9 [facility] [place] Comment on above: Performed By: #### M ORPH, CMP, PHV, MDW, CBC, GFR, ADIFF, ANEU, PRO, LAC, DOMITILA, DIFF ####[address] [place], [place] [address] Monocyte %, Manual 2.0 % Normal 1.7-13.0 [facility] ([place] Comment on above: Performed By: #### M ORPH, CMP, PHV, MDW, CBC, GFR, ADIFF, ANEU, PRO, LAC, DOMITILA, DIFF ####[id number] [place], [place] [address] Monocyte, Abs Manual 0.9 10 3/mcL Normal 0.2-1.0 [facility] ([place] Comment on above: Performed By: #### M ORPH, CMP, PHV, MDW, CBC, GFR, ADIFF, ANEU, PRO, LAC, DOMITILA, DIFF ####[place] [id number] [place], [place] [address] Neutrophil %, Manual 84.0 % High 37.0-80.0 [facility] ([place] Comment on above: Performed By: #### M ORPH, CMP, PHV, MDW, CBC, GFR, ADIFF, ANEU, PRO, LAC, DOMITILA, DIFF ####[place] [id number] [place], [place] [address] Neutrophil, Abs Manual 43.2 10 3/mcL High 2.9-6.2 [facility] [place] Comment on above: Performed By: #### M ORPH, CMP, PHV, MDW, CBC, GFR, ADIFF, ANEU, PRO, LAC, DOMITILA, DIFF ####[place] [id number] [place], [place] [address] Nucleated RBC 0.0 /100 WBC Normal [facility] ([place] Comment on above: Performed By: #### M ORPH, CMP, PHV, MDW, CBC, GFR, ADIFF, ANEU, PRO, LAC, DOMITILA, DIFF ####[place] [address] [place], [place] [address] .Morphon 04-15-2024 Anisocytosis Ql (Bld) 1+ Normal [facility] ([place] Comment on above: Performed By: #### M ORPH, CMP, PHV, MDW, CBC, GFR, ADIFF, ANEU, PRO, LAC, DOMITILA, DIFF ####[address] [place], [place] [address] Hypochrom 1+ Normal [facility] ([place] Comment on above: Performed By: #### M ORPH, CMP, PHV, MDW, CBC, GFR, ADIFF, ANEU, PRO, LAC, DOMITILA, DIFF ####[place] [id number] [place], [place] [address] Platelet Estimate Slt Increased Normal [facility] ([place] Comment on above: Performed By: #### M ORPH, CMP, PHV, MDW, CBC, GFR, ADIFF, ANEU, PRO, LAC, DOMITILA, DIFF ####[address] [place], [place] [address] .NEUABSon 04-15-2024 Neutrophil, Absolute 41.2 10 3/mcL High 2.9-6.2 A [facility] ([place] Comment on above: Performed By: #### M ORPH, CMP, PHV, MDW, CBC, GFR, ADIFF, ANEU, PRO, LAC, DOMITILA, DIFF ####[address] [place], [place] [address] ACTONon 04-15-2024 Acetone (s) Negative Normal Negative [facility] ([place]) Comment on above: Performed By: #### M ORPH, CMP, PHV, MDW, CBC, GFR, ADIFF, ANEU, PRO, LAC, DOMITILA, DIFF ####[id number] [place], [place] [address] BGon 04-15-2024 Base excess Calc (Bld) [Moles/Vol] -16.62453 mmol/L Normal [facility] ([place]) Comment on above: Performed By: #### Marco G ####[id number] [place], [place] [address] CO2 [Moles/Vol] 11.5 mmol/L Low 22.0-30.0 [facility] ([place] Comment on above: Performed By: #### Marco G ####[id number] [place], [place] [address] HCO3 (Bld) [Moles/Vol] 10.6 mmol/L Low 21.0-29.0 A [facility] ([place] Comment on above: Performed By: #### Marco G ####[place] [address] [place], [place] [address] Oxygen (Bld) [Partial pressure] 82.4 mm[Hg] Normal 74.0-108.0 [facility] ([place] Comment on above: Performed By: #### B G ####[place] [address] [place], [place] [address] Oxygen saturation in Blood 96.1 % High 92.0-96.0 [facility] ([place] Comment on above: Performed By: #### B G ####[place] [address] [place], [place] [address] pCO2 27.8 mmHg Low 32.0-46.0 [facility] ([place] Comment on above: Performed By: #### Marco G ####[place] [address] [place], [place] [address] pH (Bld) 7.199 [pH] Critically abnormal 7.380-7.46 0 [facility] ([place] Comment on above: Performed By: #### B G ####[place] [address] [place], [place] [address] CBCon 04-15-2024 Erythrocyte distribution width (RBC) [Ratio] 16.6 % High 11.5-14.5 [facility] ([place] Comment on above: Performed By: #### M ORPH, CMP, PHV, MDW, CBC, GFR, ADIFF, ANEU, PRO, LAC, DOMITILA, DIFF ####[place] [address] [place], [place] [address] Hematocrit (Bld) [Volume fraction] 28.5 % Low 42.0-52.0 [facility] ([place] Comment on above: Performed By: #### M ORPH, CMP, PHV, MDW, CBC, GFR, ADIFF, ANEU, PRO, LAC, DOMITILA, DIFF ####[place] [address] [place], [place] [address] Hgb 9.2 G/dL Low 14.0-18.0 [facility] [place] Comment on above: Performed By: #### M ORPH, CMP, PHV, MDW, CBC, GFR, ADIFF, ANEU, PRO, LAC, DOMITILA, DIFF ####[place] [address] [place], [place] [address] MCH (RBC) [Entitic mass] 25.1 pg Low 27.0-31.2 [facility] [place] Comment on above: Performed By: #### M ORPH, CMP, PHV, MDW, CBC, GFR, ADIFF, ANEU, PRO, LAC, DOMITILA, DIFF ####[place] [address] [place], [place] [address] MCHC 32.2 G/dL Normal 31.8-35.4 [facility] ([place] Comment on above: Performed By: #### M ORPH, CMP, PHV, MDW, CBC, GFR, ADIFF, ANEU, PRO, LAC, DOMITILA, DIFF ####[place] [address] [place], [place] [address] MCV (RBC) [Entitic vol] 78.0 fL Low 80.0-94.0 A [facility] ([place] Comment on above: Performed By: #### M ORPH, CMP, PHV, MDW, CBC, GFR, ADIFF, ANEU, PRO, LAC, DOMITILA, DIFF ####[place] [place], [place] [address] Platelet 550 10 3/mcL High 130-400 [facility] ([place] Comment on above: Performed By: #### M ORPH, CMP, PHV, MDW, CBC, GFR, ADIFF, ANEU, PRO, LAC, DOMITILA, DIFF ####[place] [address] [place], [place] [address] Platelet mean volume (Bld) [Entitic vol] 8.5 fL Normal 7.4-10.4 [facility] ([place] Comment on above: Performed By: #### M ORPH, CMP, PHV, MDW, CBC, GFR, ADIFF, ANEU, PRO, LAC, DOMITILA, DIFF ####[place] [address] [place], [place] [address] RBC 3.65 10 6/mcL Low 4.04-6.13 [facility] ([place] Comment on above: Performed By: #### M ORPH, CMP, PHV, MDW, CBC, GFR, ADIFF, ANEU, PRO, LAC, DOMITILA, DIFF ####[place] [address] [place], [place] [address] WBC 46.0 10 3/mcL High 4.6-10.8 [facility] ([place] Comment on above: Performed By: #### M ORPH, CMP, PHV, MDW, CBC, GFR, ADIFF, ANEU, PRO, LAC, DOMITILA, DIFF ####[place] [address] [place], [place] [address] CMPon 04-15-2024 ALT [Catalytic activity/Vol] 13 U/L Low 16-63 [facility] ([place] Comment on above: Performed By: #### M ORPH, CMP, PHV, MDW, CBC, GFR, ADIFF, ANEU, PRO, LAC, DOMITILA, DIFF ####[place] [address] [place], [place] [address] Potassium [Moles/Vol] 8.0 mmol/L Critically abnormal 3.5-5.1 [facility] ([place] Comment on above: Performed By: #### M ORPH, CMP, PHV, MDW, CBC, GFR, ADIFF, ANEU, PRO, LAC, DOMITILA, DIFF ####[place] [address] [place], [place] [address] Albumin Level 1.7 G/dL Low 3.5-5.0 [facility] ([place] Comment on above: Performed By: #### M ORPH, CMP, PHV, MDW, CBC, GFR, ADIFF, ANEU, PRO, LAC, DOMITILA, DIFF ####[place] [address] [place], [place] [address] Albumin/Globulin [Mass ratio] 0.3 {ratio} Low 1.1-2.5 [facility] ([place] Comment on above: Performed By: #### M ORPH, CMP, PHV, MDW, CBC, GFR, ADIFF, ANEU, PRO, LAC, DOMITILA, DIFF ####[place] [address] [place], [place] [address] ALP [Catalytic activity/Vol] 231 U/L High 40-135 [facility] ([place] Comment on above: Performed By: #### M ORPH, CMP, PHV, MDW, CBC, GFR, ADIFF, ANEU, PRO, LAC, DOMITILA, DIFF ####[place] [address] [place], [place] [address] AST [Catalytic activity/Vol] 11 U/L Normal 10-40 [facility] ([place] Comment on above: Performed By: #### M ORPH, CMP, PHV, MDW, CBC, GFR, ADIFF, ANEU, PRO, LAC, DOMITILA, DIFF ####[place] [address] [place], [place] [address] Bili Total 2.0 mg/dL High 0.2-1.0 [facility] ([place] Comment on above: Result Comment: Use of this assay is not recommended for patients undergoing treatment with eltrombopag due to the potential for falsely elevated results. Performed By: #### M ORPH, CMP, PHV, MDW, CBC, GFR, ADIFF, ANEU, PRO, LAC, DOMITILA, DIFF ####[place] [address] [place], [place] [address] BUN/Creatinine Ratio 17 ratio Normal 7-27 [facility] ([place]) Comment on above: Performed By: #### M ORPH, CMP, PHV, MDW, CBC, GFR, ADIFF, ANEU, PRO, LAC, DOMITILA, DIFF ####[place] [address] [place], [place] [address] Calcium [Mass/Vol] 8.4 mg/dL Normal 8.4-10.2 [facility] ([place]) Comment on above: Performed By: #### M ORPH, CMP, PHV, MDW, CBC, GFR, ADIFF, ANEU, PRO, LAC, DOMITILA, DIFF ####[place] [address] [place], [place] [address] Chloride [Moles/Vol] 97 mmol/L Low 98-107 [facility] ([place]) Comment on above: Performed By: #### M ORPH, CMP, PHV, MDW, CBC, GFR, ADIFF, ANEU, PRO, LAC, DOMITILA, DIFF ####[place] [address] [place], [place] [address] CO2 [Moles/Vol] 14 mmol/L Low 22-29 [facility] ([place] Comment on above: Performed By: #### M ORPH, CMP, PHV, MDW, CBC, GFR, ADIFF, ANEU, PRO, LAC, DOMITILA, DIFF ####[place] [address] [place], [place] [address] Creatinine [Mass/Vol] 5.01 mg/dL High 0.70-1.30 [facility] ([place]) Comment on above: Performed By: #### M ORPH, CMP, PHV, MDW, CBC, GFR, ADIFF, ANEU, PRO, LAC, DOMITILA, DIFF ####[place] [address] [place], [place] [address] Electrolyte Balance 15.0 mEq/L Normal 4.0-15.0 [facility] ([place]) Comment on above: Performed By: #### M ORPH, CMP, PHV, MDW, CBC, GFR, ADIFF, ANEU, PRO, LAC, DOMITILA, DIFF ####[place] [address] [place], [place] [address] Globulin 5.9 G/dL Normal [facility] ([place] Comment on above: Performed By: #### M ORPH, CMP, PHV, MDW, CBC, GFR, ADIFF, ANEU, PRO, LAC, DOMITILA, DIFF ####[place] [address] [place], [place] [address] Glucose [Mass/Vol] 371 mg/dL High 70-105 [facility] ([place]) Comment on above: Performed By: #### M ORPH, CMP, PHV, MDW, CBC, GFR, ADIFF, ANEU, PRO, LAC, DOMITILA, DIFF ####[place] [address] [place], [place] [address] Sodium [Moles/Vol] 126 mmol/L Low 136-145 [facility] ([place]) Comment on above: Performed By: #### M ORPH, CMP, PHV, MDW, CBC, GFR, ADIFF, ANEU, PRO, LAC, DOMITILA, DIFF ####[place] [address] [place], [place] [address] Total Protein 7.6 G/dL Normal 6.4-8.2 [facility] ([place] Comment on above: Performed By: #### M ORPH, CMP, PHV, MDW, CBC, GFR, ADIFF, ANEU, PRO, LAC, DOMITILA, DIFF ####[place] [address] [place], [place] [address] Urea nitrogen [Mass/Vol] 85 mg/dL High 7-18 [facility] ([place] Comment on above: Performed By: #### M ORPH, CMP, PHV, MDW, CBC, GFR, ADIFF, ANEU, PRO, LAC, DOMITILA, DIFF ####[place] [address] [place], [place] [address] CT ABDOMEN/PELVIS W/O CONTRA STon 04-15-2024 CT ABDOMEN/PELVIS W/O CONTRAST Normal [facility] ([place]) LABORATORYOrdered By: Sidney Abdi on 04-15-2024 Base [...] Comment on above: Interpretive Data: Alexis briones [employer] (CHEST, 1992, 102:312S-25S) [...] 370 mg/dL High 70 - 110 mg/dL [facility] Work Phone: LABORATORYOrdered By: SYSTEM SYSTEM on [...] Lactic Acid Lvl 1.2 mmol/L Normal 0.4-2.0 [facility] ([place]) Comment on above: Performed By: #### M ORPH, CMP, PHV, MDW, CBC, GFR, ADIFF, ANEU, PRO, LAC, DOMITILA, DIFF ####[facility] [place], [place] [address] No Panel Informationon 04-15 Microscopic examination of blood, culture Culture has been received in lab and is no growth to date. Routine cultures are held for 5 days. [facility] Work Phone: PHVon 04-15-2024 pH Venous 7.202 Low 7.380-7.46 0 [facility] ([place] Comment on above: Performed By: #### M ORPH, CMP, PHV, MDW, CBC, GFR, ADIFF, ANEU, PRO, LAC, DOMITILA, DIFF ####[facility] [place], [place] [address] PROon 04-15-2024 PT Coag (PPP) [Time] 15.3 s High 9.0-14.4 [facility] ([place]) Comment on above: Performed By: #### M ORPH, CMP, PHV, MDW, CBC, GFR, ADIFF, ANEU, PRO, LAC, DOMITILA, DIFF ####[facility] [place], [place] [address] PT International Ratio 1.3 Normal [facility] ([place]) Comment on above: Result Comment: [employer] (CHEST, 1992, 102:[id number])recommended therapeutic range for oral anticoagulant therapy is:LOW RISK: Prophylaxis of venous thrombosis INR: 2.0-3.0 Treatment of pulmonary embolism 2.0-3.0 Prevention of systemic embolism 2.0-3.0HIGH RISK: Mechanical prosthetic valves 2.5-3.5 Performed By: #### M ORPH, CMP, PHV, MDW, CBC, GFR, ADIFF, ANEU, PRO, LAC, DOMITILA, DIFF ####[facility] [place], [place] [address] .Urinalysis Microscopic (AO) on 04-06-2024 UA Amorphus 2+ /hpf Normal [facility] ([place] Comment on above: Performed By: #### U A, UAMICAO ####[place] [address] [place], [place] [address] UA Bacteria 2+ /hpf Abnormal [facility] ([place] Comment on above: Performed By: #### U A, UAMICAO ####[place] [address] [place], [place] [address] UA RBC 0-5 Abnormal None Seen [facility] ([place] Comment on above: Performed By: #### U A, UAMICAO ####[place] [address] [place], [place] [address] UA Squam Epithelial LOADED Abnormal None Seen [facility] ([place] Comment on above: Performed By: #### U A, UAMICAO ####[place] [address] [place] [address] UA WBC 5-10 Abnormal None Seen [facility] ([place] Comment on above: Performed By: #### U A, UAMICAO ####[place] [address] [place] [address] LABORATORYOrdered By: Cherelle Dasilva on 04-06-2024 Appearance [...] 385 mg/dL High 70 - 110 mg/dL [facility] Work Phone: UAon 04-06-2024 Color (U) Yellow Normal [facility] ([place] Comment on above: Performed By: #### U A, UAMICAO ####[place] [address] [place], [place] [address] Glucose (U) [Mass/Vol] 500 mg/dL Abnormal Negative [facility] ([place] Comment on above: Performed By: #### U A, UAMICAO ####[place] [address] [place], [place] [address] Ketones Ql (U) Negative Normal Negative [facility] ([place] Comment on above: Performed By: #### U A, UAMICAO ####[place] [address] [place], [place] [address] UA Appear Clear Normal Clear [facility] ([place] Comment on above: Performed By: #### U A, UAMICAO ####[place] [address] [place], [place] [address] UA Blood Trace Abnormal Negative [facility] ([place] Comment on above: Performed By: #### U A, UAMICAO ####[place] [address] [place], [place] [address] UA Leuk Est Negative Normal Negative [facility] ([place] Comment on above: Performed By: #### U A, UAMICAO ####[place] [address] [place], [place] [address] UA Nitrite Negative Normal Negative [facility] ([place] Comment on above: Performed By: #### U A, UAMICAO ####[place] [address] [place], [place] [address] UA pH 5.5 Normal 5.0 - 8.0 [facility] ([place] Comment on above: Performed By: #### U A, UAMICAO ####[place] [address] [place] [address] UA Protein 100 mg/dL Abnormal Negative [facility] ([place] Comment on above: Performed By: #### U A, UAMICAO ####[place] [address] [place] [address] UA Spec Grav 1.020 Normal 1.015-1.02 5 [facility] ([place] Comment on above: Performed By: #### U A, UAMICAO ####[place] [address] [place] [address] UA Specimen Type Not Given Normal [facility] ([place] Comment on above: Performed By: #### U A, UAMICAO ####[place] [address] [place] [address] UA Urobilinogen 0.2 E.U./dL Normal 0.2-1.0 [facility] ([place] Comment on above: Performed By: #### U A, UAMICAO ####[place] [address] [place] [address] Urobilinogen (U) [Mass/Vol] Negative Normal Negative [facility] ([place] Comment on above: Performed By: #### U A, UAMICAO ####[place] [address] [place], [place] [address] XR PELVIS 1 OR 2 VIEWSon XR PELVIS 1 OR 2 VIEWS Normal [facility] ([place]) .GFRon 03-11-2024 GFR 31 ml/min/1.73sqm Normal [facility] ([place] Comment on above: Result Comment: GFR Population [...] By: #### Ceci G, GFR, BMP ####[place] [address] [place], [place] [address] GFR Non- 25 ml/min/1.73sqm Normal [facility] ([place] Comment on above: Result Comment: GFR Population [...] By: #### M G, GFR, BMP ####[place] [address] [place], [place] [address] A1C SOon 03-11-2024 HbA1c (Bld) [Mass fraction] % High 4.8-5.6 [facility] ([place] Comment on above: Result Comment: Ve rified by repeat analysis Prediabetes: 5.7 - 6.4 Diabetes: >6.4 Glycemic control for adults with diabetes: <7.0Performed At: [facility] [place], [place] [id number] Vincent PhD Ph:[phone] Performed By: #### M G, FT3, CBC, TSH, ADIFF, GFR, FT4, BMP, FERR, ANEU, FES ####[place] [address] [place], [place] [address]#### [id number] ####[place] [address] BMPon 03-11-2024 BUN/Creatinine Ratio 16 ratio Normal 7-27 [facility] ([place] Comment on above: Performed By: #### Ceci Johnson, GFR, BMP ####[place] [address] [place], [place] [address] Calcium [Mass/Vol] 8.9 mg/dL Normal 8.4-10.2 [facility] ([place]) Comment on above: Performed By: #### Ceci G, GFR, BMP ####[place] [address] [place], [place] [address] Chloride [Moles/Vol] 104 mmol/L Normal 98-107 [facility] ([place]) Comment on above: Performed By: #### Ceci G, GFR, BMP ####[place] [address] [place], [place] [address] CO2 [Moles/Vol] 24 mmol/L Normal 22-29 [facility] ([place] Comment on above: Performed By: #### M G, GFR, BMP ####[place] [address] [place], [place] [address] Creatinine [Mass/Vol] 2.71 mg/dL High 0.70-1.30 [facility] ([place]) Comment on above: Performed By: #### M G, GFR, BMP ####[place] [address] [place], [place] [address] Electrolyte Balance 11.0 mEq/L Normal 4.0-15.0 [facility] ([place]) Comment on above: Performed By: #### M G, GFR, BMP ####[place] [address] [place], [place] [address] Glucose [Mass/Vol] 265 mg/dL High 70-105 [facility] ([place]) Comment on above: Performed By: #### M G, GFR, BMP ####[place] [address] [place], [place] [address] Potassium [Moles/Vol] 4.8 mmol/L Normal 3.5-5.1 [facility] ([place] Comment on above: Performed By: #### M G, GFR, BMP ####[place] [address] [place], [place] [address] Sodium [Moles/Vol] 139 mmol/L Normal 136-145 [facility] ([place]) Comment on above: Performed By: #### M G, GFR, BMP ####[place] [address] [place], [place] [address] Urea nitrogen [Mass/Vol] 44 mg/dL High 7-18 [facility] ([place] Comment on above: Performed By: #### M G, GFR, BMP ####[place] [address] [place], [place] [address] LABORATORYOrdered By: Bright Blount on 03-11-2024 Blood Glucose Testing Reason Routine (03/11/24 11:31 AM) [facility] Work Phone: Glucose [Mass/Vol] 356 mg/dL High 70 - 110 mg/dL [facility] Work Phone: Blood Glucose Testing Reason Routine (03/11/24 7:45 AM) [facility] Work Phone: Glucose [Mass/Vol] 292 mg/dL High 70 - 110 mg/dL [facility] Work Phone: LABORATORYOrdered By: SYSTEM SYSTEM on [...] 03-11-2024 Magnesium [Mass/Vol] 1.9 mg/dL Normal 1.8-2.4 [facility] ([place] Comment on above: Performed By: #### Ceci G, GFR, BMP ####[place] [address] [place], [place] [address] .GFRon 03-10-2024 GFR 31 ml/min/1.73sqm Normal [facility] ([place] Comment on above: Result Comment: GFR Population [...] By: #### G FR, MG, BMP ####[place] [address] [place], [place] [address] GFR Non- 26 ml/min/1.73sqm Normal [facility] ([place] Comment on above: Result Comment: GFR Population [...] #### G FR, MG, BMP ####[place] [address] [place], [place] [address] BMPon 03-10-2024 BUN/Creatinine Ratio 16 ratio Normal 7-27 [facility] ([place] Comment on above: Performed By: #### G FR, MG, BMP ####[place] [address] [place], [place] [address] Calcium [Mass/Vol] 8.8 mg/dL Normal 8.4-10.2 [facility] ([place]) Comment on above: Performed By: #### Elizabeth FR, MG, BMP ####[place] [address] [place], [place] [address] Chloride [Moles/Vol] 104 mmol/L Normal 98-107 [facility] ([place] Comment on above: Performed By: #### Elizabeth FR, MG, BMP ####[place] [address] [place], [place] [address] CO2 [Moles/Vol] 24 mmol/L Normal 22-29 [facility] ([place] Comment on above: Performed By: #### Elizabeth FR, MG, BMP ####[place] [address] [place], [place] [address] Creatinine [Mass/Vol] 2.67 mg/dL High 0.70-1.30 [facility] ([place]) Comment on above: Performed By: #### Elizabeth FR, MG, BMP ####[place] [address] [place], [place] [address] Electrolyte Balance 10.0 mEq/L Normal 4.0-15.0 [facility] ([place]) Comment on above: Performed By: #### Elizabeth FR, MG, BMP ####[place] [address] [place], [place] [address] Glucose [Mass/Vol] 339 mg/dL High 70-105 [facility] ([place]) Comment on above: Performed By: #### G FR, MG, BMP ####[place] [address] [place], [place] [address] Potassium [Moles/Vol] 4.6 mmol/L Normal 3.5-5.1 [facility] ([place] Comment on above: Performed By: #### G FR, MG, BMP ####[place] [address] [place], [place] [address] Sodium [Moles/Vol] 138 mmol/L Normal 136-145 [facility] ([place]) Comment on above: Performed By: #### G FR, MG, BMP ####[place] [address] [place], [place] [address] Urea nitrogen [Mass/Vol] 43 mg/dL High 7-18 [facility] ([place] Comment on above: Performed By: #### G FR, MG, BMP ####[place] [address] [place], [place] [address] LABORATORYOrdered By: Bernie Willoughby on 03-10-2024 Glucose [Mass/Vol] 258 mg/dL High 70 - 110 mg/dL [facility] Work Phone: LABORATORYOrdered By: Edward Galeano on 03-10-2024 Blood Glucose Testing Reason Routine (03/10/24 4:28 PM) [facility] Work Phone: LABORATORYOrdered By: SYSTEM SYSTEM on [...] 04--2024 Magnesium [Mass/Vol] 1.6 mg/dL Low 1.8-2.4 [facility] ([place] Comment on above: Performed By: #### G FR, MG, BMP ####[place] [address] [address] .Auto Diffon 03-09-2024 Basophil, Absolute 0.1 10 3/mcL Normal 0.0-0.2 [facility] ([place]) Comment on above: Performed By: #### M G, FT3, CBC, TSH, ADIFF, GFR, FT4, BMP, FERR, ANEU, FES ####[place] [address]#### [id number] ####[address] [address] Basophils/100 WBC (Bld) 0.5 % Normal 0.0-2.5 A [facility] ([place]) Comment on above: Performed By: #### M G, FT3, CBC, TSH, ADIFF, GFR, FT4, BMP, FERR, ANEU, FES ####[place] [address]#### [id number] ####[address] [address] Eosinophil, Absolute 0.5 10 3/mcL High 0.0-0.4 [facility] ([place] Comment on above: Performed By: #### M G, FT3, CBC, TSH, ADIFF, GFR, FT4, BMP, FERR, ANEU, FES ####[place] [address]#### 069393 ####[address] [address] Eosinophils/100 WBC (Bld) 3.6 % Normal 0.0-7.0 [facility] ([place] Comment on above: Performed By: #### M G, FT3, CBC, TSH, ADIFF, GFR, FT4, BMP, FERR, ANEU, FES ####[place] [address]#### [id number] ####[address] [address] Lymphocyte, Absolute 1.9 10 3/mcL Normal 0.8-3.9 [facility] ([place] Comment on above: Performed By: #### M G, FT3, CBC, TSH, ADIFF, GFR, FT4, BMP, FERR, ANEU, FES ####[place] [address]#### 038120 ####[address] [address] Lymphocytes/100 WBC (Bld) 13.1 % Normal 10.0-50.0 [facility] ([place] Comment on above: Performed By: #### M G, FT3, CBC, TSH, ADIFF, GFR, FT4, BMP, FERR, ANEU, FES ####[place] [address]#### 760572 ####[address] [address] Monocyte, Absolute 1.2 10 3/mcL High 0.2-1.0 [facility] ([place]) Comment on above: Performed By: #### M G, FT3, CBC, TSH, ADIFF, GFR, FT4, BMP, FERR, ANEU, FES ####[place] [address]#### [id number] ####[address] [address] Monocytes/100 WBC (Bld) 8.3 % Normal 1.7-13.0 [facility] ([place]) Comment on above: Performed By: #### M G, FT3, CBC, TSH, ADIFF, GFR, FT4, BMP, FERR, ANEU, FES ####[place] [address]#### [id number] ####[address] [address] Neutrophils/100 WBC (Bld) 74.5 % Normal 37.0-80.0 [facility] ([place] Comment on above: Performed By: #### M G, FT3, CBC, TSH, ADIFF, GFR, FT4, BMP, FERR, ANEU, FES ####[facility] [place] [id number]#### [id number] ####[place] [address] .GFRon 03-09-2024 GFR Non- 25 ml/min/1.73sqm Normal [facility] ([place] Comment on above: Result Comment: GFR Population [...] ADIFF, GFR, FT4, BMP, FERR, ANEU, FES ####[facility] [place] [id number]#### [id number] ####[address] [address] GFR 31 ml/min/1.73sqm [facility] ([place] Comment on above: Result Comment: GFR Population [...] ADIFF, GFR, FT4, BMP, FERR, ANEU, FES ####[place] [address]#### [id number] ####[address] [address] .NEUABSon 03-09-2024 Neutrophil, Absolute 10.5 10 3/mcL High 2.9-6.2 A [facility] ([place]) Comment on above: Performed By: #### M G, FT3, CBC, TSH, ADIFF, GFR, FT4, BMP, FERR, ANEU, FES ####[place] [address]#### [id number] ####[place] [address] BMPon 03-09-2024 BUN/Creatinine Ratio 17 ratio Normal 7-27 [facility] ([place] Comment on above: Performed By: #### M G, FT3, CBC, TSH, ADIFF, GFR, FT4, BMP, FERR, ANEU, FES ####[place] [address]#### [id number] ####[place] [address] Calcium [Mass/Vol] 8.5 mg/dL Normal 8.4-10.2 [facility] ([place]) Comment on above: Performed By: #### M G, FT3, CBC, TSH, ADIFF, GFR, FT4, BMP, FERR, ANEU, FES ####[place] [address]#### [id number] ####[place] [address] Chloride [Moles/Vol] 103 mmol/L Normal 98-107 [facility] ([place]) Comment on above: Performed By: #### M G, FT3, CBC, TSH, ADIFF, GFR, FT4, BMP, FERR, ANEU, FES ####[place] [address]#### [id number] ####[address] [address] CO2 [Moles/Vol] 23 mmol/L Normal 22-29 [facility] ([place] Comment on above: Performed By: #### M G, FT3, CBC, TSH, ADIFF, GFR, FT4, BMP, FERR, ANEU, FES ####[place] [address]#### [id number] ####[address] [address] Creatinine [Mass/Vol] 2.73 mg/dL High 0.70-1.30 [facility] ([place]) Comment on above: Performed By: #### M G, FT3, CBC, TSH, ADIFF, GFR, FT4, BMP, FERR, ANEU, FES ####[place] [address]#### [id number] ####[place] [address] Electrolyte Balance 9.0 mEq/L Normal 4.0-15.0 [facility] ([place]) Comment on above: Performed By: #### M G, FT3, CBC, TSH, ADIFF, GFR, FT4, BMP, FERR, ANEU, FES ####[place] [address]#### [id number] ####[place] [address] Glucose [Mass/Vol] 267 mg/dL High 70-105 [facility] ([place]) Comment on above: Performed By: #### M G, FT3, CBC, TSH, ADIFF, GFR, FT4, BMP, FERR, ANEU, FES ####[place] [address]#### [id number] ####[address] [address] Potassium [Moles/Vol] 4.5 mmol/L Normal 3.5-5.1 Formerly [facility] ([place]) Comment on above: Performed By: #### M G, FT3, CBC, TSH, ADIFF, GFR, FT4, BMP, FERR, ANEU, FES ####[place] [address]#### [id number] ####[address] [address] Sodium [Moles/Vol] 135 mmol/L Low 136-145 [facility] ([place]) Comment on above: Performed By: #### M G, FT3, CBC, TSH, ADIFF, GFR, FT4, BMP, FERR, ANEU, FES ####[place] [address]#### [id number] ####[place] [address] Urea nitrogen [Mass/Vol] 47 mg/dL High 7-18 [facility] ([place] Comment on above: Performed By: #### M G, FT3, CBC, TSH, ADIFF, GFR, FT4, BMP, FERR, ANEU, FES ####[place] [address]#### [id number] ####[place] [address] CBCon 03-09-2024 Erythrocyte distribution width (RBC) [Ratio] 15.6 % High 11.5-14.5 [facility] [place] Comment on above: Performed By: #### M G, FT3, CBC, TSH, ADIFF, GFR, FT4, BMP, FERR, ANEU, FES ####[place] [address]#### [id number] ####[place] [address] Hematocrit (Bld) [Volume fraction] 29.8 % Low 42.0-52.0 [facility] ([place] Comment on above: Performed By: #### M G, FT3, CBC, TSH, ADIFF, GFR, FT4, BMP, FERR, ANEU, FES ####[place] [address] [place] [address]#### [id number] ####[place] [address] Hgb 9.8 G/dL Low 14.0-18.0 [facility] ([place] Comment on above: Performed By: #### M G, FT3, CBC, TSH, ADIFF, GFR, FT4, BMP, FERR, ANEU, FES ####[place] [address]#### [id number] ####[place] [address] MCH (RBC) [Entitic mass] 25.9 pg Low 27.0-31.2 [facility] ([place] Comment on above: Performed By: #### M G, FT3, CBC, TSH, ADIFF, GFR, FT4, BMP, FERR, ANEU, FES ####[place] [address]#### [id number] ####[place] [address] MCHC 33.0 G/dL Normal 31.8-35.4 [facility] ([place] Comment on above: Performed By: #### M G, FT3, CBC, TSH, ADIFF, GFR, FT4, BMP, FERR, ANEU, FES ####[place] [address]#### [id number] ####[place] [address] MCV (RBC) [Entitic vol] 78.6 fL Low 80.0-94.0 A [facility] ([place]) Comment on above: Performed By: #### M G, FT3, CBC, TSH, ADIFF, GFR, FT4, BMP, FERR, ANEU, FES ####[place] [address]#### [id number] ####[place] [address] Platelet 300 10 3/mcL Normal 130-400 [facility] ([place] Comment on above: Performed By: #### M G, FT3, CBC, TSH, ADIFF, GFR, FT4, BMP, FERR, ANEU, FES ####[place] [address]#### [id number] ####[place] [address] Platelet mean volume (Bld) [Entitic vol] 8.6 fL Normal 7.4-10.4 [facility] ([place] Comment on above: Performed By: #### M G, FT3, CBC, TSH, ADIFF, GFR, FT4, BMP, FERR, ANEU, FES ####[place] [address]#### [id number] ####[place] [address] RBC 3.80 10 6/mcL Low 4.04-6.13 [facility] ([place] Comment on above: Performed By: #### M G, FT3, CBC, TSH, ADIFF, GFR, FT4, BMP, FERR, ANEU, FES ####[place] [address]#### [id number] ####[place] [address] WBC 14.1 10 3/mcL High 4.6-10.8 [facility] ([place] Comment on above: Performed By: #### M G, FT3, CBC, TSH, ADIFF, GFR, FT4, BMP, FERR, ANEU, FES ####[place] [address]#### [id number] ####[place] [address] Partha 03-09-2024 Ferritin [Mass/Vol] 179.0 ng/mL Normal 26.0-388.0 [facility] ([place]) Comment on above: Performed By: #### M G, FT3, CBC, TSH, ADIFF, GFR, FT4, BMP, FERR, ANEU, FES ####[place] [address]#### [id number] ####[place] [address] FESon 03-09-2024 Iron [Mass/Vol] 19 ug/dL Low 65-175 [facility] ([place] Comment on above: Performed By: #### M G, FT3, CBC, TSH, ADIFF, GFR, FT4, BMP, FERR, ANEU, FES ####[place] [address]#### [id number] ####[place] [address] Iron Sat 9 % Normal [facility] ([place] Comment on above: Performed By: #### M G, FT3, CBC, TSH, ADIFF, GFR, FT4, BMP, FERR, ANEU, FES ####[place] [address]#### [id number] ####[place] [address] TIBC 211 mcg/dL Low 250-450 [facility] ([place] Comment on above: Performed By: #### M G, FT3, CBC, TSH, ADIFF, GFR, FT4, BMP, FERR, ANEU, FES ####[place] [address]#### [id number] ####[place] [address] FT3on 03-09-2024 Free T3 [Mass/Vol] 1.68 pg/mL Low 2.30-4.00 [facility] ([place]) Comment on above: Performed By: #### M G, FT3, CBC, TSH, ADIFF, GFR, FT4, BMP, FERR, ANEU, FES ####[place] [address]#### [id number] ####[place] [address] FT4on 03-09-2024 Free T4 [Mass/Vol] 0.87 ng/dL Normal 0.76-1.46 [facility] ([place]) Comment on above: Performed By: #### M G, FT3, CBC, TSH, ADIFF, GFR, FT4, BMP, FERR, ANEU, FES ####[place] [address] [place], [place] [address]#### [id number] ####[place] [address] LABORATORYOrdered By: SYSTEM SYSTEM on 03-09-2024 Basophil, [...] adults with diabetes: <7.0 Performed At: [facility] [place] [id number] [place], [place] [id number] Farrah Mclaughlin PhD Ph:[phone] MGon 03-09-2024 Magnesium [Mass/Vol] 1.7 mg/dL Low 1.8-2.4 [facility] ([place] Comment on above: Performed By: #### M G, FT3, CBC, TSH, ADIFF, GFR, FT4, BMP, FERR, ANEU, FES ####[address] [address]#### [id number] ####[address] [address] TSHon 03-09-2024 TSH Qn 0.80 m[IU]/L Normal 0.36-3.74 [facility] ([place] Comment on above: Performed By: #### M G, FT3, CBC, TSH, ADIFF, GFR, FT4, BMP, FERR, ANEU, FES ####[place] [id number]#### [id number] ####[address] [address] .Auto Diffon 03-08-2024 Basophil, Absolute 0.1 10 3/mcL Normal 0.0-0.2 [facility] ([place] Comment on above: Performed By: #### A DIFF, ANEU, MORPH, GFR, DOMITILA, MDW, MG, PHV, CBC, TROPHS, CMP ####[place] [address] [place], [place] [address] Basophils/100 WBC (Bld) 0.8 % Normal 0.0-2.5 A [facility] ([place]) Comment on above: Performed By: #### A DIFF, ANEU, MORPH, GFR, DOMITILA, MDW, MG, PHV, CBC, TROPHS, CMP ####[facility] [place], [place] [address] Eosinophil, Absolute 0.5 10 3/mcL High 0.0-0.4 [facility] ([place]) Comment on above: Performed By: #### A DIFF, ANEU, MORPH, GFR, DOMITILA, MDW, MG, PHV, CBC, TROPHS, CMP ####[place] [address] [place], [place] [address] Eosinophils/100 WBC (Bld) 4.0 % Normal 0.0-7.0 [facility] ([place]) Comment on above: Performed By: #### A DIFF, ANEU, MORPH, GFR, DOMITILA, MDW, MG, PHV, CBC, TROPHS, CMP ####[place] [address] [place], [place] [address] Lymphocyte, Absolute 1.6 10 3/mcL Normal 0.8-3.9 [facility] ([place]) Comment on above: Performed By: #### A DIFF, ANEU, MORPH, GFR, DOMITILA, MDW, MG, PHV, CBC, TROPHS, CMP ####[place] [address] [place], [place] [address] Lymphocytes/100 WBC (Bld) 12.2 % Normal 10.0-50.0 [facility] ([place]) Comment on above: Performed By: #### A DIFF, ANEU, MORPH, GFR, DOMITILA, MDW, MG, PHV, CBC, TROPHS, CMP ####[place] [address] [place], [place] [address] Monocyte, Absolute 0.8 10 3/mcL Normal 0.2-1.0 [facility] ([place]) Comment on above: Performed By: #### A DIFF, ANEU, MORPH, GFR, DOMITILA, MDW, MG, PHV, CBC, TROPHS, CMP ####[place] [address] [place], [place] [address] Monocytes/100 WBC (Bld) 5.8 % Normal 1.7-13.0 [facility] ([place]) Comment on above: Performed By: #### A DIFF, ANEU, MORPH, GFR, DOMITILA, MDW, MG, PHV, CBC, TROPHS, CMP ####[place] [address] [place], [place] [address] Neutrophils/100 WBC (Bld) 77.2 % Normal 37.0-80.0 [facility] ([place]) Comment on above: Performed By: #### A DIFF, ANEU, MORPH, GFR, DOMITILA, MDW, MG, PHV, CBC, TROPHS, CMP ####[place] [address] [place], [place] [address] .GFRon 03-08-2024 GFR Non- 22 ml/min/1.73sqm Normal [facility] ([place] Comment on above: Result Comment: GFR Population [...] MDW, MG, PHV, CBC, TROPHS, CMP ####[place] [address] [place], [place] [address] GFR 27 ml/min/1.73sqm Normal [facility] ([place] Comment on above: Result Comment: GFR Population [...] MG, PHV, CBC, TROPHS, CMP ####[place] [address] [place], [place] [address] .MDWon 03-08-2024 Monocyte Distribution Width 19.79 Normal 0.00-20.00 [facility] ([place] Comment on above: Result Comment: For ED adult patients suspected of sepsis, MDW<=20.0 does not rule out sepsis or risk of sepsis Performed By: #### A DIFF, ANEU, MORPH, GFR, DOMITILA, MDW, MG, PHV, CBC, TROPHS, CMP ####[place] [address] [place] [address] .Morphon 03-08-2024 Platelet Estimate Normal Normal [facility] ([place] Comment on above: Performed By: #### A DIFF, ANEU, MORPH, GFR, DOMITILA, MDW, MG, PHV, CBC, TROPHS, CMP ####[place] [address] [place] [address] .NEUABSon 03-08-2024 Neutrophil, Absolute 10.3 10 3/mcL High 2.9-6.2 A [facility] ([place] Comment on above: Performed By: #### A DIFF, ANEU, MORPH, GFR, DOMITILA, MDW, MG, PHV, CBC, TROPHS, CMP ####[place] [address] [place] [address] .Urinalysis Microscopic (AO) on 03-08-2024 UA RBC 0-5 Abnormal None Seen [facility] ([place] Comment on above: Performed By: #### U AMICAO, UA ####[place] [address] [place] [address] UA Squam Epithelial 0-5 Abnormal None Seen [facility] ([place] Comment on above: Performed By: #### U AMICAO, UA ####[place] [address] [place] [address] UA WBC 0-5 Abnormal None Seen [facility] ([place] Comment on above: Performed By: #### U AMICAO, UA ####[place] [address] [place] [address] ACTONon 03-08-2024 Acetone (s) Negative Normal Negative [facility] ([place] Comment on above: Performed By: #### A DIFF, ANEU, MORPH, GFR, DOMITILA, MDW, MG, PHV, CBC, TROPHS, CMP ####[place] [address] [place], [place] [address] CBCon 03-08-2024 Erythrocyte distribution width (RBC) [Ratio] 15.7 % High 11.5-14.5 [facility] ([place] Comment on above: Performed By: #### A DIFF, ANEU, MORPH, GFR, DOMITILA, MDW, MG, PHV, CBC, TROPHS, CMP ####[place] [address] [place], [place] [address] Hematocrit (Bld) [Volume fraction] 34.1 % Low 42.0-52.0 [facility] ([place] Comment on above: Performed By: #### A DIFF, ANEU, MORPH, GFR, DOMITILA, MDW, MG, PHV, CBC, TROPHS, CMP ####[place] [address] [place], [place] [address] Hgb 11.2 G/dL Low 14.0-18.0 [facility] ([place] Comment on above: Performed By: #### A DIFF, ANEU, MORPH, GFR, DOMITILA, MDW, MG, PHV, CBC, TROPHS, CMP ####[place] [address] [place], [place] [address] MCH (RBC) [Entitic mass] 26.0 pg Low 27.0-31.2 [facility] ([place] Comment on above: Performed By: #### A DIFF, ANEU, MORPH, GFR, DOMITILA, MDW, MG, PHV, CBC, TROPHS, CMP ####[place] [address] [place], [place] [address] MCHC 32.9 G/dL Normal 31.8-35.4 [facility] ([place] Comment on above: Performed By: #### A DIFF, ANEU, MORPH, GFR, DOMITILA, MDW, MG, PHV, CBC, TROPHS, CMP ####[place] [address] [place], [place] [address] MCV (RBC) [Entitic vol] 79.2 fL Low 80.0-94.0 A [facility] ([place] Comment on above: Performed By: #### A DIFF, ANEU, MORPH, GFR, DOMITILA, MDW, MG, PHV, CBC, TROPHS, CMP ####[place] [address] [place], [place] [address] Platelet 338 10 3/mcL Normal 130-400 [facility] ([place] Comment on above: Performed By: #### A DIFF, ANEU, MORPH, GFR, DOMITILA, MDW, MG, PHV, CBC, TROPHS, CMP ####[place] [address] [place], [place] [address] Platelet mean volume (Bld) [Entitic vol] 8.7 fL Normal 7.4-10.4 [facility] ([place] Comment on above: Performed By: #### A DIFF, ANEU, MORPH, GFR, DOMITILA, MDW, MG, PHV, CBC, TROPHS, CMP ####[place] [address] [place], [place] [address] RBC 4.30 10 6/mcL Normal 4.04-6.13 [facility] ([place] Comment on above: Performed By: #### A DIFF, ANEU, MORPH, GFR, DOMITILA, MDW, MG, PHV, CBC, TROPHS, CMP ####[place] [address] [place], [place] [address] WBC 13.3 10 3/mcL High 4.6-10.8 [facility] ([place] Comment on above: Performed By: #### A DIFF, ANEU, MORPH, GFR, DOMITILA, MDW, MG, PHV, CBC, TROPHS, CMP ####[place] [address] [place], [place] [address] CKon 03-08-2024 CK [Catalytic activity/Vol] 172 U/L Normal 39-308 [facility] ([place] Comment on above: Performed By: #### C K ####[place] [address] [place], [place] [address] CMPon 03-08-2024 Albumin Level 2.9 G/dL Low 3.5-5.0 [facility] ([place] Comment on above: Performed By: #### A DIFF, ANEU, MORPH, GFR, DOMITILA, MDW, MG, PHV, CBC, TROPHS, CMP ####[place] [address] [place], [place] [address] Albumin/Globulin [Mass ratio] 0.6 {ratio} Low 1.1-2.5 [facility] ([place] Comment on above: Performed By: #### A DIFF, ANEU, MORPH, GFR, DOMITILA, MDW, MG, PHV, CBC, TROPHS, CMP ####[place] [address] [place], [place] [address] ALP [Catalytic activity/Vol] 133 U/L Normal 40-135 [facility] ([place] Comment on above: Performed By: #### A DIFF, ANEU, MORPH, GFR, DOMITILA, MDW, MG, PHV, CBC, TROPHS, CMP ####[place] [address] [place], [place] [address] ALT [Catalytic activity/Vol] 18 U/L Normal 16-63 [facility] ([place] Comment on above: Performed By: #### A DIFF, ANEU, MORPH, GFR, DOMITILA, MDW, MG, PHV, CBC, TROPHS, CMP ####[place] [address] [place], [place] [address] AST [Catalytic activity/Vol] 11 U/L Normal 10-40 [facility] ([place] Comment on above: Performed By: #### A DIFF, ANEU, MORPH, GFR, DOMITILA, MDW, MG, PHV, CBC, TROPHS, CMP ####[place] [address] [place], [place] [address] Bili Total 0.4 mg/dL Normal 0.2-1.0 [facility] ([place] Comment on above: Result Comment: Use of this assay is not recommended for patients undergoing treatment with eltrombopag due to the potential for falsely elevated results. Performed By: #### A DIFF, ANEU, MORPH, GFR, DOMITILA, MDW, MG, PHV, CBC, TROPHS, CMP ####[place] [address] [place], [place] [address] BUN/Creatinine Ratio 17 ratio Normal 7-27 [facility] ([place]) Comment on above: Performed By: #### A DIFF, ANEU, MORPH, GFR, DOMITILA, MDW, MG, PHV, CBC, TROPHS, CMP ####[place] [address] [place], [place] [address] Calcium [Mass/Vol] 8.6 mg/dL Normal 8.4-10.2 [facility] ([place]) Comment on above: Performed By: #### A DIFF, ANEU, MORPH, GFR, DOMITILA, MDW, MG, PHV, CBC, TROPHS, CMP ####[place] [address] [place], [place] [address] Chloride [Moles/Vol] 98 mmol/L Normal 98-107 [facility] ([place]) Comment on above: Performed By: #### A DIFF, ANEU, MORPH, GFR, DOMITILA, MDW, MG, PHV, CBC, TROPHS, CMP ####[place] [address] [place], [place] [address] CO2 [Moles/Vol] 24 mmol/L Normal 22-29 [facility] ([place] Comment on above: Performed By: #### A DIFF, ANEU, MORPH, GFR, DOMITILA, MDW, MG, PHV, CBC, TROPHS, CMP ####[place] [address] [place], [place] [address] Creatinine [Mass/Vol] 3.08 mg/dL High 0.70-1.30 [facility] ([place]) Comment on above: Performed By: #### A DIFF, ANEU, MORPH, GFR, DOMITILA, MDW, MG, PHV, CBC, TROPHS, CMP ####[place] [address] [place], [place] [address] Electrolyte Balance 11.0 mEq/L Normal 4.0-15.0 [facility] ([place]) Comment on above: Performed By: #### A DIFF, ANEU, MORPH, GFR, DOMITILA, MDW, MG, PHV, CBC, TROPHS, CMP ####[facility] [place], [place] [address] Globulin 4.9 G/dL Normal [facility] ([place] Comment on above: Performed By: #### A DIFF, ANEU, MORPH, GFR, DOMITILA, MDW, MG, PHV, CBC, TROPHS, CMP ####[place] [address] [place], [place] [address] Glucose [Mass/Vol] 492 mg/dL Critically abnormal 70-105 [facility] ([place] Comment on above: Performed By: #### A DIFF, ANEU, MORPH, GFR, DOMITILA, MDW, MG, PHV, CBC, TROPHS, CMP ####[place] [address] [place], [place] [address] Potassium [Moles/Vol] 5.3 mmol/L High 3.5-5.1 [facility] ([place]) Comment on above: Performed By: #### A DIFF, ANEU, MORPH, GFR, DOMITILA, MDW, MG, PHV, CBC, TROPHS, CMP ####[place] [address] [place], [place] [address] Sodium [Moles/Vol] 133 mmol/L Low 136-145 [facility] ([place]) Comment on above: Performed By: #### A DIFF, ANEU, MORPH, GFR, DOMITILA, MDW, MG, PHV, CBC, TROPHS, CMP ####[place] [address] [place], [place] [address] Total Protein 7.8 G/dL Normal 6.4-8.2 [facility] [place] Comment on above: Performed By: #### A DIFF, ANEU, MORPH, GFR, DOMITILA, MDW, MG, PHV, CBC, TROPHS, CMP ####[place] [address] [place], [place] [address] Urea nitrogen [Mass/Vol] 52 mg/dL High 7-18 [facility] ([place] Comment on above: Performed By: #### A DIFF, ANEU, MORPH, GFR, DOMITILA, MDW, MG, PHV, CBC, TROPHS, CMP ####[place] [address] [place], [place] [address] LABORATORYOrdered By: Joy Lomas on 03-08-2024 Appearance [...] ng/L Male: 0-76 ng/L Testing performed on [employer] using a homogeneous sandwich chemiluminescent immunoassay based on [employer] technology. WBC (Bld) [#/Vol] 13.3 103/mcL High 4.6 - 10.8 10^3/mcL AO Workflow SS MGon 03-08-2024 Magnesium [Mass/Vol] 1.6 mg/dL Low 1.8-2.4 [facility] ([place] Comment on above: Performed By: #### A DIFF, ANEU, MORPH, GFR, DOMITILA, MDW, MG, PHV, CBC, TROPHS, CMP ####[place] [address] [place], [place] [address] PHVon 03-08-2024 pH Venous 7.291 Low 7.380-7.46 0 [facility] ([place] Comment on above: Performed By: #### A DIFF, ANEU, MORPH, GFR, DOMITILA, MDW, MG, PHV, CBC, TROPHS, CMP ####[place] [address] [place], [place] [address] TROPHSon 03-08-2024 High Sensitivity Troponin I 20 ng/L Normal 0-76 [facility] ([place]) Comment on above: Result Comment: High Sensitive Troponin I Reference Ranges:Female: 0-51 ng/LMale: 0-76 ng/LTesting performed on [employer] using a homogeneous sandwich chemiluminescent immunoassay based on [employer] technology. Performed By: #### A DIFF, ANEU, MORPH, GFR, DOMITILA, MDW, MG, PHV, CBC, TROPHS, CMP ####[place] [address] [place], [place] [address] UAon 03-08-2024 Color (U) Yellow Normal [facility] ([place]) Comment on above: Performed By: #### U AMICAO, UA ####[place] [address] [place], [place] [address] Glucose (U) [Mass/Vol] mg/dL Abnormal Negative [facility] ([place]) Comment on above: Performed By: #### U AMICAO, UA ####[place] [address] [place], [place] [address] Ketones Ql (U) Negative Normal Negative [facility] ([place] Comment on above: Performed By: #### U AMICAO, UA ####[place] [address] [place], [place] [address] UA Appear Clear Normal Clear [facility] ([place] Comment on above: Performed By: #### U AMICAO, UA ####[place] [address] [place], [place] [address] UA Blood Small Abnormal Negative [facility] ([place] Comment on above: Performed By: #### U AMICAO, UA ####[place] [address] [place], [place] [address] UA Leuk Est Negative Normal Negative [facility] ([place] Comment on above: Performed By: #### U AMICAO, UA ####[place] [address] [place], [place] [address] UA Nitrite Negative Normal Negative [facility]) Comment on above: Performed By: #### U AMICAO, UA ####[place] [address] [place], [place] [address] UA pH 5.5 Normal 5.0 - 8.0 [facility]) Comment on above: Performed By: #### U AMICAO, UA ####[place] [address] [place], [place] [address] UA Protein >=300 Abnormal Negative [facility] [place] Comment on above: Performed By: #### U AMICAO, UA ####[place] [address] [place], [place] [address] UA Spec Grav 1.025 Normal 1.015-1.02 5 [facility] ([place] Comment on above: Performed By: #### U AMICAO, UA ####[place] [address] [place], [place] [address] UA Specimen Type Clean Catch Normal [facility]) Comment on above: Performed By: #### U AMICAO, UA ####[place] [address] [place], [place] [address] UA Urobilinogen 0.2 E.U./dL Normal 0.2-1.0 [facility] [place] Comment on above: Performed By: #### U AMICAO, UA ####[place] [address] [place], [place] [address] Urobilinogen (U) [Mass/Vol] Negative Normal Negative [facility] ([place] Comment on above: Performed By: #### U AMICAO, UA ####[place] [address] [place], [place] [address] XR CHEST 1 VIEWon 03-08-2024 XR CHEST 1 VIEW Normal [facility] [place] XR KNEE THREE VIEWS LEFTon 0 03-08-2024 XR KNEE THREE VIEWS LEFT Normal [facility]) LABORATORYOrdered By: Cherelle Garsia on 07-07-2023 Appearance [...] panelon 05-09-2023 Anion gap [Moles/Vol] 9 mmol/L [facility] Calcium [Mass/Vol] 9.0 mg/dL 8.6 - 10. 3 mg/dL [facility] Chloride [Moles/Vol] 105 mmol/L 98 - 11 0 mmol/L [facility] CO2 [Moles/Vol] 23 mmol/L 20 - 32 mmol/L [facility] Creatinine [Mass/Vol] 3.32 mg/dL High 0.60 - 1.29 mg/dL [facility] GFR/1.73 sq M.predicted among non-blacks MDRD (S/P/Bld) [Vol rate/Area] 22 mL/min/{1.73_m2} Low > OR = 60 mL/min/1.7 3m2 [facility] Comment on above: The eGFR is based on the CKD-EPI 2020 equation. To calculate the new eGFR from a previous Creatinine or Cystatin C result, go to https://www.kidney.org/professionals/ kdoqi/gfr%5Fcalculator Glucose [Mass/Vol] 238 mg/dL High 65 - 99 mg/dL [facility] Comment on above: Fasting reference interval For someone without known diabetes, a glucose value >125 mg/dL indicates that they may have diabetes and this should be confirmed with a follow-up test. Interpretation and review of laboratory results Abnormal [facility] Potassium [Moles/Vol] 5.0 mmol/L 3.5 - 5.3 mmol/L [facility] Sodium [Moles/Vol] 137 mmol/L 135 - 146 mmol/L [facility] Urea nitrogen [Mass/Vol] 40 mg/dL High 7 - 25 mg/dL [facility] Urea nitrogen/Creatinine [Mass ratio] 12 mg/mg [facility] CR Chest PA/LATon 01-10-2022 CR Chest PA/LAT Patient Name: GURINDER JARVIS Diagnostic Radiology ACCESSION EXAM DATE/TIME PROCEDURE ORDERING PROVIDER [id number] 01/10/2022 15:58 EST CR Chest PA and LAT OLI ADAM HOLLY S CPT code 95820 Reason For Exam (CR Chest PA and [...] Transcribed Date and Time: 01/10/2022 4:06 Normal [facility] LABORATORYOrdered By: Tori Kinsey on 12-13-2021 ADMITTED [...] definite cause of disease. Laboratories within the [facility] and its territories are required to report [...] the left hand. Patient was seen at [facility] yesterday and had an x-ray states [...] Lack of (more content not included)... Normal [facility] Basic Metabolic Panelon 12-2 Anion gap [Moles/Vol] 9 mmol/L [place], [place] Calcium [Mass/Vol] 9.1 mg/dL 8.4 - 10. 4 mg/dL [place], [place] Chloride [Moles/Vol] 104 mmol/L 98 - 10 7 mmol/L [place] CO2 [Moles/Vol] 23 mmol/L 22 - 30 mmol/L [place] Creatinine [Mass/Vol] 2 mg/dL High 0.52 - 1.25 mg/dL [place] EGFR IF NonAfrican Romanian 39.5 mL/min Abnormal >60 [place] Comment on above: KDIGO guidelines pro [...] (S/P/Bld) [Vol rate/Area] 45.8 mL/min/{1.73_m2} Abnormal >60 [place] Glucose [Mass/Vol] 321 mg/dL High 70 - 100 mg/dL [place] Interpretation and review of laboratory results Abnormal [place] Potassium [Moles/Vol] 4.4 mmol/L 3.5 - 5.1 mmol/L [place] Sodium [Moles/Vol] 136 mmol/L 135 - 145 mmol/L [place] Urea nitrogen [Mass/Vol] 25 mg/dL High 7 - 20 mg/dL [place] Test Performed by [facility], [address] [place], [place], [place] [id number] [place] [address] CBC Auto Differentialon 12-2 Absolute Baso # 0.1 10*3/uL 0 - 0.2 10*3/uL [place] Absolute Neut # 6.8 10*3/uL 1.8 - 7 10*3/uL [place] Basophils/100 WBC (Bld) 1.0 % 0 - 2 % [place] Eosinophils (Bld) [#/Vol] 0.5 10*3/uL 0 - 0.5 10*3/uL [place] Eosinophils/100 WBC (Bld) 4.6 % 1 - 6 % [place] Erythrocyte distribution width (RBC) [Ratio] 13.8 % 11.5 - 14.5 % [place] Granulocytes/100 WBC (Bld) 65.3 % 40 - 80 % [place] Hematocrit (Bld) [Volume fraction] 36.5 % Low 40 - 52 % [place] Hemoglobin (Bld) [Mass/Vol] 12.0 g/dL Low 13 - 18 g/dL [place] Interpretation and review of laboratory results Abnormal [place] Lymphocytes (Bld) [#/Vol] 2.3 10*3/uL 1 - 4.3 10*3/uL [place] Lymphocytes/100 WBC (Bld) 21.9 % 20 - 40 % [place] MCH (RBC) [Entitic mass] 26.4 pg 26 - 34 pg [place] MCHC (RBC) [Mass/Vol] 32.8 % 32 - 36 % [place] MCV (RBC) [Entitic vol] 80.3 fL 80 - 98 fL [place] Monocytes (Bld) [#/Vol] 0.7 10*3/uL 0 - 0.8 10*3/uL [place] Monocytes/100 WBC (Bld) 7.2 % 2 - 10 % [place] Platelet mean volume (Bld) [Entitic vol] 9.0 fL 7.4 - 10.4 fL [place] Platelets (Bld) [#/Vol] 240 10*3/uL 140 - 440 10*3/uL [place] RBC (Bld) [#/Vol] 4.55 10*6/uL 4.4 - 5.9 10*6/uL [place] WBC (Bld) [#/Vol] 10.4 10*3/uL 3.6 - 10.7 10*3/uL [place] Test Performed by [facility], [address], [place], [place] [address] [place], [place] POCT Glucoseon 05-14-2020 Glucose [Mass/Vol] 278 mg/dL High 70 - 100 mg/dL [place] Comment on above: Test performed by gl ucose meter. Results may be 10%-15% lower than serum/plasma values. (CLIA ID [id number]) Interpretation and review of laboratory results Abnormal [place], [place] Test Performed by [facility], [address] , [place], [place] [address] [place], [place] Vital Signs Date Time Vital Sign Value Performing Clinician Facility 06-16-2025 14:23-0400 Diastolic blood pressure 82 mm[Hg] Shreya Bridenthal DIRECTOR OF OPERATIONS - REGULATORY AFFAIRS INTERN Work Phone: [facility] 06-16-2025 14:23-0400 Heart rate 87 /min Shreya Bridenthal DIRECTOR OF OPERATIONS - REGULATORY AFFAIRS INTERN Work Phone: [facility] 06-16-2025 14:23-0400 Systolic blood pressure 128 mm[Hg] Shreya Bridenthal DIRECTOR OF OPERATIONS - REGULATORY AFFAIRS INTERN Work Phone: [facility] 06-16-2025 13:18-0400 Body mass index (BMI) [Ratio] 36.08 kg/m2 Shreya Bridenthal DIRECTOR OF OPERATIONS - REGULATORY AFFAIRS INTERN Work Phone: [facility] 06-16-2025 13:18-0400 Body temperature 98.29 [degF] Shreya Bridenthal DIRECTOR OF OPERATIONS - REGULATORY AFFAIRS INTERN Work Phone: [facility] 06-16-2025 13:18-0400 Body weight 127.46 kg Shreya Bridenthal DIRECTOR OF OPERATIONS - REGULATORY AFFAIRS INTERN Work Phone: [facility] 06-16-2025 13:18-0400 Respiratory rate 20 /min Shreya Bridenthal DIRECTOR OF OPERATIONS - REGULATORY AFFAIRS INTERN Work Phone: [facility] 06-16-2025 13:18-0400 SaO2% (BldA) [Mass fraction] 97 % Shreya Bert DIRECTOR OF OPERATIONS - REGULATORY AFFAIRS INTERN Work Phone: [facility] 02-15-2025 17:50-0400 Diastolic Blood Pressure Non-Invasive 96 mm[Hg] VIRIDIANA WILLIAM MD [facility] 02-15-2025 17:50-0400 Systolic Blood Pressure Non-Invasive 170 mm[Hg] VIRIDIANA WILLIAM MD [facility] 02-15-2025 16:02-0400 Diastolic Blood Pressure Non-Invasive 104 mm[Hg] VIRIDIANA WILLIAM MD [facility] 02-15-2025 16:02-0400 Systolic Blood Pressure Non-Invasive 178 mm[Hg] VIRIDIANA WILLIAM MD [facility] 02-15-2025 15:15-0400 Diastolic Blood Pressure Non-Invasive 98 mm[Hg] VIRIDIANA WILLIAM MD [facility] 02-15-2025 15:15-0400 Systolic Blood Pressure Non-Invasive 178 mm[Hg] VIRIDIANA WILLIAM MD [facility] 02-15-2025 15:04-0400 Body temperature 97.52 [degF] VIRIDIANA WILLIAM MD [facility] 02-15-2025 15:04-0400 Heart rate 79 /min VIRIDIANA WILLIAM MD [facility] 02-15-2025 15:04-0400 Reason For Taking VItal Signs VIRIDIANA WILLIMA MD [facility] 02-15-2025 15:04-0400 Respiratory rate 18 /min VIRIDIANA WILLIAM MD [facility] 02-15-2025 12:16-0400 Heart rate 82 /min VIRIDIANA WILLIAM MD [facility] 02-15-2025 06:42-0400 Body temperature 97.52 [degF] VIRIDIANA WILLIAM MD [facility] 02-15-2025 06:42-0400 Heart rate 79 /min VIRIDIANA WILLIAM MD [facility] 02-15-2025 06:42-0400 Reason For Taking VItal Signs VIRIDIANA WILLIAM MD [facility] 02-15-2025 06:42-0400 Respiratory rate 18 /min VIRIDIANA WILLIAM MD [facility] 02-15-2025 05:51-0400 Body weight 126.8 kg VIRIDIANA WILLIAM MD [facility] 02-14-2025 23:51-0400 Blood Pressure Cuff Size VIRIDIANA WILLIAM MD [facility] 02-14-2025 23:51-0400 Blood Pressure Location VIRIDIANA WILLIAM MD [facility] 02-14-2025 23:51-0400 Blood Pressure Method VIRIDIANA WILLIAM MD [facility] 02-14-2025 23:51-0400 Body temperature 98.24 [degF] VIRIDIANA WILLIAM MD [facility] 02-14-2025 23:51-0400 Mean blood pressure 109 mm[Hg] VIRIDIANA WILLIAM MD [facility] 02-14-2025 23:51-0400 Reason For Taking VItal Signs VIRIDIANA WILLIAM MD [facility] 02-14-2025 23:51-0400 Respiratory rate 18 /min VIRIDIANA WILLIAM MD [facility] 02-14-2025 20:33-0400 Blood Pressure Cuff Size VIRIDIANA WILLIAM MD [facility] 02-14-2025 20:33-0400 Blood Pressure Location VIRIDIANA WILLIAM MD [facility] 02-14-2025 20:33-0400 Blood Pressure Method VIRIDIANA WILLIAM MD [facility] 02-14-2025 20:30-0400 Blood Pressure Cuff Size VIRIDIANA WILLIAM MD [facility] 02-14-2025 20:30-0400 Blood Pressure Location VIRIDIANA WILLIAM MD [facility] 02-14-2025 20:30-0400 Blood Pressure Method VIRIDIANA WILLIAM MD [facility] 02-14-2025 16:04-0400 Body temperature 96.8 [degF] VIRIDIANA WILLIAM MD [facility] 02-14-2025 16:04-0400 Body weight 123.8 kg VIRIDIANA WILLIAM MD [facility] 02-14-2025 16:04-0400 Heart rate 76 /min VIRIDIANA WILLIAM MD [facility] 02-14-2025 15:30-0400 Heart rate 73 /min VIRIDIANA WILLIAM MD [facility] 02-14-2025 15:02-0400 Heart rate 75 /min VIRIDIANA WILLIAM MD [facility] 02-14-2025 13:56-0400 Body temperature 96.98 [degF] VIRIDIANA WILLIAM MD [facility] 02-14-2025 13:56-0400 Body weight 127.1 kg VIRIDIANA WILLIAM MD [facility] 02-13-2025 15:59-0400 Body temperature 97.7 [degF] VIRIDIANA WILLIAM MD [facility] 02-12-2025 08:30-0400 Heart rate 74 /min VIRIDIANA WILLIAM MD [facility] 02-11-2025 22:41-0400 Mean blood pressure 113 mm[Hg] VIRIDIANA WILLIAM MD [facility] 02-11-2025 22:30-0400 Mean blood pressure 112 mm[Hg] VIRIDIANA WILLIAM MD [facility] 02-11-2025 20:00-0400 Heart rate 94 /min VIRIDIANA WILLIAM MD [facility] 02-11-2025 07:57-0400 Heart rate 81 /min VIRIDIANA WILLIAM MD [facility] 02-10-2025 01:33-0400 Body height 188 cm VIRIDIANA WILLIAM MD [facility] 02-10-2025 01:33-0400 Body weight 40.69 kg/m2 VIRIDIANA WILLIAM MD [facility] 01-22-2025 16:07-0500 Diastolic blood pressure 128 mm[Hg] Jose Morrison MD Work Phone: [employer] Comment on above: Dr Morrison advised 01-22-2025 16:07-0500 Heart rate 94 /min Jose Morrison MD Work Phone: [employer] 01-22-2025 16:07-0500 Systolic blood pressure 215 mm[Hg] Jose Morrison MD Work Phone: [employer] [facility] Comment on above: Dr Morrison advised 01-22-2025 16:01-0500 Body height 188 cm Jose Morrison MD Work Phone: [employer] 01-22-2025 16:01-0500 Body mass index (BMI) [Ratio] 38.52 kg/m2 Jose Morrison MD Work Phone: [employer] 01-22-2025 16:01-0500 Body weight 136.08 kg Jose Morrison MD Work Phone: [employer] 12-09-2024 10:08-0500 Body height 188 cm Garrick Velasquez MD Work Phone: [employer] [facility] 12-09-2024 10:08-0500 Body mass index (BMI) [Ratio] 38.52 kg/m2 Garrick Velasquez MD Work Phone: [employer] 12-09-2024 10:08-0500 Body weight 136.08 kg Garrick Velasquez MD Work Phone: [employer] 12-09-2024 10:08-0500 Diastolic blood pressure 73 mm[Hg] Garrick Velasquez MD Work Phone: [employer] 12-09-2024 10:08-0500 Heart rate 85 /min Garrick Velasquez MD Work Phone: [employer] 12-09-2024 10:08-0500 Systolic blood pressure 139 mm[Hg] Garrick Velasquez MD Work Phone: [facility] 09-22-2024 14:23-0500 Diastolic blood pressure 86 mm[Hg] Phoebe Adam DIRECTOR OF OPERATIONS - REGULATORY AFFAIRS INTERN Work Phone: [employer] 09-22-2024 14:23-0500 Systolic blood pressure 138 mm[Hg] Phoebe Adam DIRECTOR OF OPERATIONS - REGULATORY AFFAIRS INTERN Work Phone: [facility] 09-22-2024 13:44-0500 Body height 188 cm Phoebe Adam DIRECTOR OF OPERATIONS - REGULATORY AFFAIRS INTERN Work Phone: [employer] 09-22-2024 13:44-0500 Body mass index (BMI) [Ratio] 34.79 kg/m2 Phoebe Adam DIRECTOR OF OPERATIONS - REGULATORY AFFAIRS INTERN Work Phone: [employer] 09-22-2024 13:44-0500 Body weight 122.92 kg Phoebe Adam DIRECTOR OF OPERATIONS - REGULATORY AFFAIRS INTERN Work Phone: [employer] 09-22-2024 13:44-0500 Heart rate 83 /min Phoebe Adam DIRECTOR OF OPERATIONS - REGULATORY AFFAIRS INTERN Work Phone: [employer] [facility] 09-22-2024 13:44-0500 SaO2% (BldA) [Mass fraction] 99 % Phoebe Adam DIRECTOR OF OPERATIONS - REGULATORY AFFAIRS INTERN Work Phone: [facility] 06-30-2024 16:34-0400 Heart rate 86 /min DR ILEANA RICO MD [facility] 06-30-2024 15:01-0400 Blood Pressure Cuff Size DR ILEANA RICO MD [address] [place] [id number] 06-30-2024 15:01-[address] ILEANA RICO MD [address] [place] [address] 06-30-2024 15:01-[address] ILEANA RICO MD [address] [place] [address] 06-30-2024 15:01-0400 Body temperature 97.7 [degF] DR ILEANA RICO MD [address] [place] [address] 06-30-2024 15:01-0400 Diastolic Blood Pressure Non-Invasive 75 mm[Hg] DR ILEANA RICO MD [facility] 06-30-2024 15:01-0400 Heart rate 77 /min DR ILEANA RICO MD [address] [place] [address] 06-30-2024 15:01-0400 Respiratory rate 18 /min DR ILEANA RICO MD [address] [place] [address] 06-30-2024 15:01-0400 Systolic Blood Pressure Non-Invasive 147 mm[Hg] DR ILEANA RICO MD [facility] 06-30-2024 08:05-0400 Heart rate 78 /min DR ILEANA RICO MD [address] [place] [address] 06-30-2024 07:47-0400 Body temperature 98.06 [degF] DR ILEANA RICO MD [address] [place] [address] 06-30-2024 07:47-0400 Diastolic Blood Pressure Non-Invasive 73 mm[Hg] DR ILEANA RICO MD [facility] 06-30-2024 07:47-0400 Heart rate 74 /min DR ILEANA RICO MD [address] [place] [address] 06-30-2024 07:47-0400 Respiratory rate 18 /min DR ILEANA RICO MD [address] [place] [address] 06-30-2024 07:47-0400 Systolic Blood Pressure Non-Invasive 143 mm[Hg] DR ILEANA RICO MD [address] [place] [address] 06-29-2024 21:22-0400 Blood Pressure Cuff Size DR ILEANA RICO MD [address] [place] [address] 06-29-2024 21:22-[address] ILEANA RICO MD [address] [place] [address] 06-29-2024 21:22-[address] ILEANA RICO MD [address] [place] [address] 06-29-2024 21:22-0400 Body temperature 97.7 [degF] DR ILEANA RICO MD [address] [place] [address] 06-29-2024 21:22-0400 Diastolic Blood Pressure Non-Invasive 87 mm[Hg] DR ILEANA RICO MD [address] [place] [address] 06-29-2024 21:22-0400 Heart rate 80 /min DR ILEANA RICO MD [address] [place] [address] 06-29-2024 21:22-0400 Reason For Taking VItal Signs DR ILEANA RICO MD [address] [place] [address] 06-29-2024 21:22-0400 Respiratory rate 16 /min DR ILEANA RICO MD [address] [place] [address] 06-29-2024 21:22-0400 Systolic Blood Pressure Non-Invasive 157 mm[Hg] DR ILEANA RICO MD [address] [place] [address] 06-29-2024 16:41-0400 Heart rate 84 /min DR ILEANA RICO MD [address] [place] [address] 06-29-2024 14:31-0400 Blood Pressure Cuff Size DR ILEANA RICO MD [address] 06-29-2024 14:31-[address] ILEANA RICO MD [address] [place] [address] 06-29-2024 14:31-[address] ILEANA RICO MD [address] 06-28-2024 21:20-0400 Reason For Taking VItal Signs DR ILEANA RICO MD [address] 06-27-2024 21:36-0400 Heart rate 76 /min DR ILEANA RICO MD [address] [place] [address] 06-27-2024 16:10-0400 Heart rate 71 /min DR ILEANA RICO MD [address] 06-27-2024 07:05-0400 Body temperature 97.7 [degF] DR ILEANA RICO MD [address] 06-26-2024 21:03-0400 Reason For Taking VItal Signs DR ILEANA RICO MD [address] [place] [address] 06-23-2024 09:00-0400 Heart rate 78 /min DR ILEANA RICO MD [address] 06-19-2024 19:34-0400 Mean blood pressure 97 mm[Hg] DR ILEANA RICO MD [address] 06-19-2024 15:20-0400 Mean blood pressure 87 mm[Hg] DR ILEANA RICO MD [address] [place] [address] 06-19-2024 11:29-0400 Mean blood pressure 104 mm[Hg] DR ILEANA RICO MD [facility] 06-18-2024 18:59-0400 Body height [address] ILEANA RICO MD [facility] 06-18-2024 18:59-0400 Body weight 109.[address] ILEANA RICO MD [facility] 06-18-2024 18:59-0400 Body weight 30.98 kg/m2 DR ILEANA RICO MD [facility] 06-06-2024 08:25-0400 Diastolic Blood Pressure Non-Invasive 62 mm[Hg] JIMENA GARDNERT DO [facility] 06-06-2024 08:25-0400 Heart rate 76 /min JIMENA FROMMELT DO [facility] 06-06-2024 08:25-0400 Respiratory rate 16 /min JIMENA FROMMELT DO [facility] 06-06-2024 08:25-0400 Systolic Blood Pressure Non-Invasive 100 mm[Hg] IJMENA FROMMELT DO [facility] 06-06-2024 06:41-0400 Diastolic Blood Pressure Non-Invasive 70 mm[Hg] JIMENA FROMMELT DO [facility] 06-06-2024 06:41-0400 Systolic Blood Pressure Non-Invasive 100 mm[Hg] JIMENA FROMMELT DO [facility] 06-06-2024 05:14-0400 Diastolic Blood Pressure Non-Invasive 61 mm[Hg] JIMENA FROMMELT DO [facility] 06-06-2024 05:14-0400 Systolic Blood Pressure Non-Invasive 97 mm[Hg] JIMENA MCRoadmunkT DO [facility] 06-06-2024 02:23-0400 Heart rate 80 /min JIMENA DaioT DO [facility] 06-06-2024 02:23-0400 Reason For Taking VItal Signs JIMENA Errplane [facility] 06-06-2024 02:23-0400 Respiratory rate 18 /min JIMENA MC[employer]anciero DO [facility] 06-06-2024 01:45-0400 Heart rate 82 /min JIMENA WiChorus DO [facility] 06-06-2024 01:45-0400 Respiratory rate 18 /min JIMENA MCIndigoz [facility] 05-15-2024 19:12-0400 Blood Pressure Cuff Size DR TORI JOHNSON MD [facility] 05-15-2024 19:12-[address] TORI JOHNSON MD [facility] 05-15-2024 19:12-[address] TORI JOHNSON MD [facility] 05-15-2024 19:12-0400 Body temperature 97.34 [degF] DR TORI JOHNSON MD [facility] 05-15-2024 19:12-0400 Diastolic Blood Pressure Non-Invasive 77 mm[Hg] DR TORI JOHNSON MD [facility] 05-15-2024 19:12-0400 Heart rate 75 /min DR TORI JOHNSON MD [facility] 05-15-2024 19:12-0400 Mean blood pressure 87 mm[Hg] DR TORI JOHNSON MD [address] [place] [address] 05-15-2024 19:12-0400 Reason For Taking VItal Signs DR TORI JOHNSON MD [address] [place] [address] 05-15-2024 19:12-0400 Respiratory rate 16 /min DR TORI JOHNSON MD [address] [place] [address] 05-15-2024 19:12-0400 Systolic Blood Pressure Non-Invasive 118 mm[Hg] DR TORI JOHNSON MD [address] [place] [address] 05-15-2024 17:32-0400 Heart rate 75 /min DR TORI JOHNSON MD [address] [place] [address] 05-15-2024 15:19-0400 Blood Pressure Cuff Size DR TORI JOHNSON MD [address] [place] [address] 05-15-2024 15:19-[address] TORI JOHNSON MD [address] [place] [address] 05-15-2024 15:19-[address] TORI JOHNSON MD [address] [place] [address] 05-15-2024 15:19-0400 Body temperature 97.34 [degF] DR TORI JOHNSON MD [address] [place] [address] 05-15-2024 15:19-0400 Diastolic Blood Pressure Non-Invasive 62 mm[Hg] DR TORI JOHNSON MD [address] [place] [address] 05-15-2024 15:19-0400 Heart rate 76 /min DR TORI JOHNSON MD [address] [place] [address] 05-15-2024 15:19-0400 Reason For Taking VItal Signs DR TORI JOHNSON MD [address] [place] [address] 05-15-2024 15:19-0400 Respiratory rate 16 /min DR TORI JOHNSON MD [address] [place] [address] 05-15-2024 15:19-0400 Systolic Blood Pressure Non-Invasive 108 mm[Hg] DR TORI JOHNSON MD [address] [place] [address] 05-15-2024 12:10-0400 Heart rate 71 /min DR TORI JOHNSON MD [address] [place] [address] 05-15-2024 11:05-0400 Blood Pressure Cuff Size DR TORI JOHNSON MD [address] [place] [address] 05-15-2024 11:05-[address] TORI JOHNSON MD [address] [place] [address] 05-15-2024 11:05-[address] TORI JOHNSON MD [address] [place] [address] 05-15-2024 11:05-0400 Body temperature 97.34 [degF] DR TORI JOHNSON MD [address] [place] [address] 05-15-2024 11:05-0400 Diastolic Blood Pressure Non-Invasive 80 mm[Hg] DR TORI JOHNSON MD [address] [place] [address] 05-15-2024 11:05-0400 Reason For Taking VItal Signs DR TORI JOHNSON MD [address] [place] [address] 05-15-2024 11:05-0400 Respiratory rate 18 /min DR TORI JOHNSON MD [address] [place] [address] 05-15-2024 11:05-0400 Systolic Blood Pressure Non-Invasive 130 mm[Hg] DR TORI JOHNSON MD [address] [place] [address] 05-15-2024 08:00-0400 Heart rate 78 /min DR TORI JOHNSON MD [address] [place] [address] 05-14-2024 16:18-0400 Heart rate 81 /min DR TORI JOHNSON MD [address] [place] [address] 05-14-2024 10:55-0400 Mean blood pressure 100 mm[Hg] DR TORI JOHNSON MD [address] [place] [address] 05-14-2024 07:42-0400 Mean blood pressure 81 mm[Hg] DR TORI JOHNSON MD [address] [place] [address] 05-08-2024 15:22-0400 Body temperature 97.88 [degF] DR TORI JOHNSON MD [address] [place] [address] 05-08-2024 12:01-0400 Body temperature 96.8 [degF] DR TORI JOHNSON MD [address] [place] [address] 05-08-2024 10:34-0400 Body temperature 96.08 [degF] DR TORI JOHNSON MD [address] [place] [address] 05-08-2024 05:24-0400 Body height [address] TORI JOHNSON MD [address] [place] [address] 05-08-2024 05:24-0400 Body weight 114.[address] TORI JOHNSON MD [address] [place] [address] 05-08-2024 05:24-0400 Body weight 32.71 kg/m2 DR TORI JOHNSON MD [address] [place] [address] 05-08-2024 04:10-0400 Diastolic Blood Pressure Non-Invasive 82 mm[Hg] JIMENA GARDNERT DO [facility] 05-08-2024 04:10-0400 Heart rate 78 /min JIMENA GARDNERT DO [facility] 05-08-2024 04:10-0400 Respiratory rate 16 /min JIMENA FROMMELT DO [facility] 05-08-2024 04:10-0400 Systolic Blood Pressure Non-Invasive 170 mm[Hg] JIMENA FROMMELT DO [facility] 05-07-2024 23:23-0400 Diastolic Blood Pressure Non-Invasive 80 mm[Hg] JIMENA JESUSITAMELT DO [facility] 05-07-2024 23:23-0400 Heart rate 84 /min JIMENA FROMMELT DO [facility] 05-07-2024 23:23-0400 Respiratory rate 14 /min JIMENA FROMMELT DO [facility] 05-07-2024 23:23-0400 Systolic Blood Pressure Non-Invasive 152 mm[Hg] JIMENA FROMMELT DO [facility] 05-07-2024 17:53-0400 Body weight 119.7 kg JIMENA FROMMELT DO [facility] 05-07-2024 17:30-0400 Diastolic Blood Pressure Non-Invasive 97 mm[Hg] JIMENA FROMMELT DO [facility] 05-07-2024 17:30-0400 Heart rate 82 /min JIMENA FROMMELT DO [facility] 05-07-2024 17:30-0400 Respiratory rate 16 /min JIMENA FROMMELT DO [facility] 05-07-2024 17:30-0400 Systolic Blood Pressure Non-Invasive 175 mm[Hg] JIMENA FROMMELT DO [facility] 05-07-2024 15:30-0400 Heart rate 82 /min JIMENA FROMMELT DO [facility] 05-07-2024 13:55-0400 Heart rate 88 /min JIMENA FROMMELT DO [facility] 05-07-2024 11:12-0400 Reason For Taking VItal Signs JIMENA FROMMELT DO [facility] 05-07-2024 10:43-0400 Blood Pressure Cuff Size JIMENA FROMMELT DO [facility] 05-07-2024 10:43-0400 Blood Pressure Location JIMENA GARDNERAttune Systems [facility] 05-07-2024 10:43-0400 Blood Pressure Method JIMENA G[employer]Att[employer] [facility] 05-07-2024 10:43-0400 Body temperature 95.18 [degF] JIMENA MCIndigoz [facility] 05-07-2024 10:43-0400 Body weight 122 kg JIMENA GARDNERAttune [employer] [facility] 05-07-2024 10:43-0400 Heart rate 93 /min [facility] 05-06-2024 19:01-0400 Body temperature 98.6 [degF] JOAN MCKEON MD [facility] 05-06-2024 19:01-0400 Diastolic Blood Pressure Non-Invasive 65 mm[Hg] JOAN MCKEON MD [facility] 05-06-2024 19:01-0400 Heart rate 87 /min JOAN MCKEON MD [facility] 05-06-2024 19:01-0400 Respiratory rate 16 /min JOAN MCKEON MD [facility] 05-06-2024 19:01-0400 Systolic Blood Pressure Non-Invasive 114 mm[Hg] JOAN MCKEON MD [facility] 05-06-2024 16:27-0400 Heart rate 80 /min JOAN MCKEON MD [facility] 05-06-2024 16:25-0400 Heart rate 80 /min JOAN MCKEON MD [facility] 05-06-2024 14:57-0400 Blood Pressure Cuff Size JOAN MCKEON MD [facility] 05-06-2024 14:57-0400 Blood Pressure Location JOAN MCKEON MD [facility] 05-06-2024 14:57-0400 Blood Pressure Method JOAN MCKEON MD [facility] 05-06-2024 14:57-0400 Body temperature 98.96 [degF] JOAN MCKEON MD [facility] 05-06-2024 14:57-0400 Diastolic Blood Pressure Non-Invasive 70 mm[Hg] JOAN MCKEON MD [facility] 05-06-2024 14:57-0400 Heart rate 81 /min JOAN MCKEON MD [facility] 05-06-2024 14:57-0400 Reason For Taking VItal Signs JOAN MCKEON MD [facility] 05-06-2024 14:57-0400 Respiratory rate 16 /min JOAN MCKEON MD [facility] 05-06-2024 14:57-0400 Systolic Blood Pressure Non-Invasive 118 mm[Hg] JOAN MCKEON MD [facility] 05-06-2024 10:35-0400 Blood Pressure Cuff Size JOAN MCKEON MD [facility] 05-06-2024 10:35-0400 Blood Pressure Location JOAN MCKEON MD [facility] 05-06-2024 10:35-0400 Blood Pressure Method JOAN MCKEON MD [facility] 05-06-2024 10:35-0400 Body temperature 98.42 [degF] JOAN MCKEON MD [facility] 05-06-2024 10:35-0400 Diastolic Blood Pressure Non-Invasive 72 mm[Hg] JOAN MCKEON MD [facility] 05-06-2024 10:35-0400 Heart rate 80 /min JOAN MCKEON MD [facility] 05-06-2024 10:35-0400 Reason For Taking VItal Signs JOAN MCKEON MD [facility] 05-06-2024 10:35-0400 Respiratory rate 16 /min JOAN [facility]ON [facility] [facility] 10:35-0400 Systolic Blood Pressure Non-Invasive 120 mm[Hg] JOAN MCKEON MD [facility] 05-06-2024 08:05-0400 Heart rate 86 /min JOAN MCKEON MD [facility] 05-06-2024 08:05-0400 Reason For Taking VItal Signs JOAN MCKEON MD [facility] 05-06-2024 06:57-0400 Blood Pressure Cuff Size JOAN MCKEON MD [facility] 05-06-2024 06:57-0400 Blood Pressure Location JOAN MCKEON MD [facility] 05-06-2024 06:57-0400 Blood Pressure Method JOAN MCKEON MD [facility] 05-06-2024 06:57-0400 Heart rate 86 /min JOAN MCKEON MD [facility] 05-05-2024 16:08-0400 Heart rate 81 /min JOAN MCKEON MD [facility] 05-05-2024 16:08-0400 Mean blood pressure 69 mm[Hg] JOAN MCKEON MD [facility] 05-05-2024 15:53-0400 Heart rate 80 /min JOAN MCKEON MD [facility] 05-05-2024 15:53-0400 Mean blood pressure 86 mm[Hg] JOAN MCKEON MD [facility] 05-05-2024 15:38-0400 Mean blood pressure 81 mm[Hg] JOAN MCKEON MD [facility] 05-05-2024 15:08-0400 Body temperature 97.16 [degF] JOAN MCKEON MD [facility] 05-05-2024 14:55-0400 Respiratory Rate - Anes 14 br/min JOAN MCKEON MD [facility] 05-05-2024 14:50-0400 Body temperature 99.18 [degF] JOAN MCKEON MD [facility] 05-05-2024 14:50-0400 Respiratory Rate - Anes 16 br/min JOAN MCKEON MD [facility] 05-05-2024 14:45-0400 Body temperature 99.14 [degF] JOAN MCKEON MD [facility] 05-05-2024 14:40-0400 Body temperature 99.16 [degF] JOAN MCKEON MD [facility] 04-26-2024 12:18-0400 Diastolic blood pressure 76 mm[Hg] JOAN MCKEON MD [facility] 04-26-2024 12:18-0400 Mean blood pressure 91 mm[Hg] JOAN MCKEON MD [facility] 04-26-2024 12:18-0400 Systolic blood pressure 125 mm[Hg] JOAN MCKEON MD [facility] 04-25-2024 12:25-0400 SaO2% (BldA) [Mass fraction] 94.0 % JOAN MCKEON MD [facility] 04-25-2024 12:04-0400 Body temperature 97.34 [degF] JOAN MCKEON MD [facility] 04-25-2024 07:56-0400 Body temperature 96.8 [degF] JOAN MCKEON MD [facility] 04-22-2024 12:23-0400 Body height 188 cm JOAN MCKEON MD [facility] 04-22-2024 12:23-0400 Body weight 125 kg JOAN MCKEON MD [facility] 04-22-2024 12:23-0400 Body weight 35.37 kg/m2 JOAN MCKEON MD [facility] 04-21-2024 23:27-0400 Signs/Symptoms Transfusion Reaction JOAN MCKEON MD [facility] 04-21-2024 23:15-0400 Signs/Symptoms Transfusion Reaction JOAN MCKEON MD [facility] 04-21-2024 22:27-0400 Signs/Symptoms Transfusion Reaction No JOAN MCKEON MD [facility] 04-21-2024 22:27-0400 Diastolic blood pressure 89 mm[Hg] JOAN MCKEON MD [facility] 04-21-2024 22:27-0400 Systolic blood pressure 127 mm[Hg] JOAN MCKEON MD [facility] 04-21-2024 22:21-0400 Diastolic blood pressure 89 mm[Hg] JOAN MCKEON MD [facility] 04-21-2024 22:21-0400 Systolic blood pressure 127 mm[Hg] JOAN MCKEON MD [facility] 04-21-2024 21:51-0400 Diastolic blood pressure 66 mm[Hg] JOAN MCKEON MD [facility] 04-21-2024 21:51-0400 Systolic blood pressure 124 mm[Hg] JOAN MCKEON MD [facility] 04-20-2024 04:13-0400 SaO2% (BldA) [Mass fraction] 92.2 % JONA MCKEON MD [facility] 04-20-2024 03:13-0400 Body temperature 96.8 [degF] JOAN MCKEON MD [facility] 04-19-2024 11:33-0400 Diastolic blood pressure 86 mm[Hg] JOAN MCKEON MD [facility] 04-19-2024 11:33-0400 Mean blood pressure 102 mm[Hg] JOAN MCKEON MD [facility] 04-19-2024 11:33-0400 Systolic blood pressure 146 mm[Hg] JOAN MCKEON MD [facility] 04-19-2024 10:04-0400 Diastolic blood pressure 67 mm[Hg] JOAN MCKEON MD [facility] 04-19-2024 10:04-0400 Mean blood pressure 96 mm[Hg] JOAN MCKEON MD [facility] 04-19-2024 10:04-0400 Systolic blood pressure 150 mm[Hg] JOAN MCKEON MD [facility] 2024 02:11-0400 SaO2% (BldA) [Mass fraction] 97.5 % JOAN MCKEON MD [facility] 2024 00:16-0400 SaO2% (BldA) [Mass fraction] 98.8 % JOAN MCKEON MD [facility] 04-16-2024 01:20-0400 Body temperature 95.36 [degF] JOAN MCKEON MD [facility] 04-16-2024 00:43-0400 Diastolic blood pressure 62 mm[Hg] MARTÍNEZ ACUNA MD [facility] 04-16-2024 00:43-0400 Heart rate 105 /min MARTÍNEZ ACUNA MD [facility] 04-16-2024 00:43-0400 Respiratory rate 18 /min MARTÍNEZ ACUNA MD [facility] 04-16-2024 00:43-0400 Systolic blood pressure 94 mm[Hg] MARTÍNEZ ACUNA MD [facility] 04-16-2024 00:13-0400 Blood Pressure Cuff Size MARTÍNEZ ACUNA MD [facility] 04-16-2024 00:13-0400 Blood Pressure Location MARTÍNEZ ACUNA MD [facility] 04-16-2024 00:13-0400 Blood Pressure Method MARTÍNEZ ACUNA MD [facility] 04-16-2024 00:13-0400 Diastolic Blood Pressure Non-Invasive 67 mm[Hg] MARTÍNEZ ACUNA MD [facility] 04-16-2024 00:13-0400 Heart rate 109 /min MARTÍNEZ ACUNA MD [facility] 04-16-2024 00:13-0400 Respiratory rate 18 /min MARTÍNEZ ACUNA MD [facility] 04-16-2024 00:13-0400 Systolic Blood Pressure Non-Invasive 105 mm[Hg] MARTÍNEZ ACUNA MD [facility] 04-16-2024 00:09-0400 Blood Pressure Cuff Size MARTÍNEZ ACUNA MD [facility] 04-16-2024 00:09-0400 Blood Pressure Location MARTÍNEZ ACUNA MD [facility] 04-16-2024 00:09-0400 Blood Pressure Method MARTÍNEZ ACUNA MD [facility] 04-16-2024 00:09-0400 Diastolic Blood Pressure Non-Invasive 74 mm[Hg] MARTÍNEZ ACUNA MD [facility] 04-16-2024 00:09-0400 Heart rate 106 /min MARTÍNEZ ACUNA MD [facility] 04-16-2024 00:09-0400 Respiratory rate 18 /min MARTÍNEZ ACUNA MD [facility] 04-16-2024 00:09-0400 Systolic Blood Pressure Non-Invasive 111 mm[Hg] MARTÍNEZ ACUNA MD [facility] 04-15-2024 23:59-0400 Blood Pressure Cuff Size MARTÍNEZ ACUNA MD [facility] 04-15-2024 23:59-0400 Blood Pressure Location MARTÍNEZ ACUNA MD [facility] 04-15-2024 23:59-0400 Blood Pressure Method MARTÍNEZ ACUNA MD [facility] 04-15-2024 23:59-0400 Diastolic Blood Pressure Non-Invasive 71 mm[Hg] MARTÍNEZ ACUNA MD [facility] 04-15-2024 23:59-0400 Systolic Blood Pressure Non-Invasive 119 mm[Hg] MARTÍNEZ ACUNA MD [facility] 04-15-2024 22:40-0400 SaO2% (BldA) [Mass fraction] 96.1 % MARTÍNEZ ACUNA MD [facility] 04-15-2024 20:35-0400 Body temperature 96.98 [degF] MARTÍNEZ ACUNA MD [facility] 04-15-2024 19:35-0400 Body height 188 cm MARTÍNEZ ACUNA MD [facility] 04-15-2024 19:35-0400 Body temperature 96.98 [degF] MARTÍNEZ ACUNA MD [facility] 04-15-2024 19:35-0400 Body weight 127.3 kg MARTÍNEZ ACUNA MD [facility] 04-15-2024 19:35-0400 Reason For Taking VItal Signs MARTÍNEZ ACUNA MD [facility] 04-06-2024 16:42-0400 Diastolic Blood Pressure Non-Invasive 77 mm[Hg] MATHEW REICHFIELD DO [facility] 04-06-2024 16:42-0400 Heart rate 105 /min MATHEW REICHFIELD DO [facility] 04-06-2024 16:42-0400 Respiratory rate 16 /min MATHEW REICHFIELD DO [facility] 04-06-2024 16:42-0400 Systolic Blood Pressure Non-Invasive 137 mm[Hg] MATHEW REICHFIELD DO [facility] 04-06-2024 13:19-0400 Body temperature 98.96 [degF] [facility] 04-06-2024 13:19-0400 Diastolic Blood Pressure Non-Invasive 91 mm[Hg] MATHEW REICHFIELD DO [facility] 04-06-2024 13:19-0400 Heart rate 117 /min MATHEW REICHFIELD DO [facility] 04-06-2024 13:19-0400 Mean blood pressure 99 mm[Hg] MATHEW REICHFIELD DO [facility] 04-06-2024 13:19-0400 Reason For Taking VItal Signs MATHEW REICHFIELD DO [facility] 04-06-2024 13:19-0400 Respiratory rate 16 /min MATHEW REICHFIELD DO [facility] 04-06-2024 13:19-0400 Systolic Blood Pressure Non-Invasive 108 mm[Hg] MATHEW REICHFIELD DO [facility] 04-06-2024 12:20-0400 Body temperature 98.24 [degF] MATHEW REICHFIELD DO [facility] 04-06-2024 12:20-0400 Body weight 127.5 kg MATHEW REICHFIELD DO [facility] 04-06-2024 12:20-0400 Diastolic Blood Pressure Non-Invasive 73 mm[Hg] MATHEW REICHFIELD DO [facility] 04-06-2024 12:20-0400 Heart rate 120 /min MATHEW REICHFIELD DO [facility] 04-06-2024 12:20-0400 Respiratory rate 20 /min MATHEW REICHFIELD DO [facility] 04-06-2024 12:20-0400 Systolic Blood Pressure Non-Invasive 107 mm[Hg] MATHEW MALONE DO [facility] 03-11-2024 11:02-0400 Body temperature 98.06 [degF] BRAVO KAPPER DIRECTOR OF OPERATIONS-REGULATORY AFFAIRS INTERN [facility] 03-11-2024 11:02-0400 Diastolic Blood Pressure Non-Invasive 77 mm[Hg] BRAVO KAPPER DIRECTOR OF OPERATIONS-REGULATORY AFFAIRS INTERN [facility] 03-11-2024 11:02-0400 Heart rate 111 /min BRAVO KAPPER DIRECTOR OF OPERATIONS-REGULATORY AFFAIRS INTERN [facility] 03-11-2024 11:02-0400 Respiratory rate 16 /min BRAVO KAPPER DIRECTOR OF OPERATIONS-REGULATORY AFFAIRS INTERN [facility] 03-11-2024 11:02-0400 Systolic Blood Pressure Non-Invasive 128 mm[Hg] BRAVO KAPPER DIRECTOR OF OPERATIONS-REGULATORY AFFAIRS INTERN [facility] 03-11-2024 06:38-0400 Body temperature 97.88 [degF] BRAVO KAPPER DIRECTOR OF OPERATIONS-REGULATORY AFFAIRS INTERN [facility] 03-11-2024 06:38-0400 Diastolic Blood Pressure Non-Invasive 73 mm[Hg] BRAVO KAPPER DIRECTOR OF OPERATIONS-REGULATORY AFFAIRS INTERN [facility] 03-11-2024 06:38-0400 Heart rate 93 /min BRAVO KAPPER DIRECTOR OF OPERATIONS-REGULATORY AFFAIRS INTERN [facility] 03-11-2024 06:38-0400 Respiratory rate 16 /min BRAVO KAPPER DIRECTOR OF OPERATIONS-REGULATORY AFFAIRS INTERN [facility] 03-11-2024 06:38-0400 Systolic Blood Pressure Non-Invasive 120 mm[Hg] BRAVO KAPPER DIRECTOR OF OPERATIONS-REGULATORY AFFAIRS INTERN [facility] 03-11-2024 03:50-0400 Body temperature 98.06 [degF] BRAVO KAPPER DIRECTOR OF OPERATIONS-REGULATORY AFFAIRS INTERN [facility] 03-11-2024 03:50-0400 Diastolic Blood Pressure Non-Invasive 94 mm[Hg] BRAVO KAPPER DIRECTOR OF OPERATIONS-REGULATORY AFFAIRS INTERN [facility] 03-11-2024 03:50-0400 Heart rate 98 /min BRAVO KAPPER DIRECTOR OF OPERATIONS-REGULATORY AFFAIRS INTERN [facility] 03-11-2024 03:50-0400 Respiratory rate 16 /min BRAVO KAPPER DIRECTOR OF OPERATIONS-REGULATORY AFFAIRS INTERN [facility] 03-11-2024 03:50-0400 Systolic Blood Pressure Non-Invasive 152 mm[Hg] BRAVO KAPPER DIRECTOR OF OPERATIONS-REGULATORY AFFAIRS INTERN [facility] 03-11-2024 00:23-0400 Heart rate 106 /min BRAVO KAPPER DIRECTOR OF OPERATIONS-REGULATORY AFFAIRS INTERN [facility] 03-10-2024 19:13-0400 Heart rate 109 /min BRAVO KAPPER DIRECTOR OF OPERATIONS-REGULATORY AFFAIRS INTERN [facility] 03-10-2024 16:49-0400 Blood Pressure Location BRAVO KAPPER DIRECTOR OF OPERATIONS-REGULATORY AFFAIRS INTERN [facility] 03-10-2024 16:49-0400 Blood Pressure Method BRAVO KAPPER DIRECTOR OF OPERATIONS-REGULATORY AFFAIRS INTERN [facility] 03-10-2024 15:33-0400 Heart rate 104 /min BRAVO KAPPER DIRECTOR OF OPERATIONS-REGULATORY AFFAIRS INTERN [facility] 03-10-2024 02:56-0400 Heart rate 108 /min BRAVO KAPPER DIRECTOR OF OPERATIONS-REGULATORY AFFAIRS INTERN [facility] 03-09-2024 22:52-0400 Heart rate 117 /min BRAVO POPEER DIRECTOR OF OPERATIONS-REGULATORY AFFAIRS INTERN [facility] 03-09-2024 19:08-0400 Heart rate 110 /min BRAVO KAPPER DIRECTOR OF OPERATIONS-REGULATORY AFFAIRS INTERN [facility] 03-08-2024 16:58-0400 Body height 188 cm BRAVO KAPPER DIRECTOR OF OPERATIONS-REGULATORY AFFAIRS INTERN [facility] 03-08-2024 16:58-0400 Body weight 128.4 kg BRAVO KAPPER DIRECTOR OF OPERATIONS-REGULATORY AFFAIRS INTERN [facility] 03-08-2024 16:58-0400 Body weight 36.33 kg/m2 BRAVO KAPPER DIRECTOR OF OPERATIONS-REGULATORY AFFAIRS INTERN [facility] 03-08-2024 12:47-0400 Blood Pressure Method BRAVO KAPPER DIRECTOR OF OPERATIONS-REGULATORY AFFAIRS INTERN [facility] 07-07-2023 18:17-0400 Body temperature 97.52 [degF] CLEM BOOKER MD [facility] 07-07-2023 18:17-0400 Diastolic Blood Pressure Non-Invasive 99 1 CLEM BOOKER MD [facility] 07-07-2023 18:17-0400 Heart rate 110 /min CLEM BOOKER MD [facility] 07-07-2023 18:17-0400 Respiratory rate 15 /min CLEM BOOEKR MD [facility] 07-07-2023 18:17-0400 Systolic Blood Pressure Non-Invasive 170 1 CLEM BOOKER MD [facility] 01-08-2023 09:52-0500 Body height 188 cm Phoebe Adam DIRECTOR OF OPERATIONS - REGULATORY AFFAIRS INTERN Work Phone: [employer] 01-08-2023 09:52-0500 Body mass index (BMI) [Ratio] 38.39 kg/m2 Phoebe Adam DIRECTOR OF OPERATIONS - REGULATORY AFFAIRS INTERN Work Phone: [employer] 01-08-2023 09:52-0500 Body weight 135.63 kg Phoebe Adam DIRECTOR OF OPERATIONS - REGULATORY AFFAIRS INTERN Work Phone: [employer] 01-08-2023 09:52-0500 Diastolic blood pressure 76 mm[Hg] Phoebe Adam DIRECTOR OF OPERATIONS - REGULATORY AFFAIRS INTERN Work Phone: [employer] 01-08-2023 09:52-0500 Heart rate 80 /min Phoebe Adam DIRECTOR OF OPERATIONS - REGULATORY AFFAIRS INTERN Work Phone: [employer] 01-08-2023 09:52-0500 SaO2% (BldA) [Mass fraction] 95 % Phoebe Adam DIRECTOR OF OPERATIONS - REGULATORY AFFAIRS INTERN Work Phone: [employer] 01-08-2023 09:52-0500 Systolic blood pressure 120 mm[Hg] Phoebe Adam DIRECTOR OF OPERATIONS - REGULATORY AFFAIRS INTERN Work Phone: [employer] 12-22-2022 14:06-0500 Body height 188 cm Tu Goetz MD Work Phone: [employer] 12-22-2022 14:06-0500 Body mass index (BMI) [Ratio] 35.95 kg/m2 Tu Goetz MD Work Phone: [facility] 12-22-2022 14:06-0500 Body temperature 97.81 [degF] Tu Goetz MD Work Phone: [employer] 12-22-2022 14:06-0500 Body weight 127.01 kg Tu Goetz MD Work Phone: [facility] 12-14-2021 00:18-0500 Diastolic blood pressure 84 mm[Hg] DR RAMON MIN MD [facility] 12-14-2021 00:18-0500 Systolic blood pressure 141 mm[Hg] DR RAMON MIN MD [facility] 12-13-2021 23:57-0500 Body temperature 99.14 [degF] DR RAMON MIN MD [facility] 12-13-2021 23:57-0500 Diastolic blood pressure 90 mm[Hg] DR RAMON MIN MD [facility] 12-13-2021 23:57-0500 Heart rate 122 /min DR RAMON MIN MD [facility] 12-13-2021 23:57-0500 Respiratory rate 25 /min DR RAMON MIN MD [facility] 12-13-2021 23:57-0500 Systolic blood pressure 153 mm[Hg] DR ARMON MIN MD [facility] 12-13-2021 23:17-0500 Body temperature 98.24 [degF] DR RAMON MIN MD [facility] 12-13-2021 23:17-0500 Diastolic blood pressure 80 mm[Hg] DR RAMON MIN MD [facility] 12-13-2021 23:17-0500 Heart rate 130 /min DR RAMON MIN MD [facility] 12-13-2021 23:17-0500 Respiratory rate 20 /min DR RAMON MIN MD [facility] 12-13-2021 23:17-0500 Systolic blood pressure 143 mm[Hg] DR RAMON MIN MD [facility] 09-04-2021 21:02-0400 Body temperature 97.2 [degF] Artie [...] Body temperature 98.78 [degF] LATRELL MENDIOLA DO [facility] 09-02-2021 14:41-0400 Body weight 135.2 kg LATRELL MENDIOLA DO [facility] 09-02-2021 14:41-0400 Diastolic blood pressure 98 mm[Hg] LATRELL MENDIOLA DO [facility] 09-02-2021 14:41-0400 Heart rate 113 /min LATRELL MENDIOLA DO [facility] 09-02-2021 14:41-0400 Respiratory rate 18 /min LATRELL MENDIOLA DO [facility] 09-02-2021 14:41-0400 Systolic blood pressure 151 mm[Hg] LATRELL MENDIOLA DO [facility] 11-15-2020 10:15-0500 BP Diastolic 72 mm[Hg] Shashank Stef [facility] , [place] 11-15-2020 10:15-0500 BP Systolic 147 mm[Hg[facility] [place] 11-15-2020 10:15-0500 Pulse (Heart Rate) 96 /[facility] [place] 11-15-2020 10:15-0500 Pulse Oximetry 96 % [facility] [place] 11-15-2020 10:15-0500 Respiratory Rate 13 /[facility] [place] [facility]-15-2020 10:04-0500 Body Temperature 98.91 [degF] [facility]ashank [facility]gu[facility]ario [facility] [place] 11-15-2020 08:20-0500 BMI (Body Mass Index) 34.65 kg/m2 [facility] [place] 11-15-2020 08:20-0500 Body weight 122.43 kg [facility] [place] 11-15-2020 08:20-0500 Height 188 [facility] [place] 05-14-2020 10:31-0400 Body Temperature 98.01 [degF] Tuyet Miller [facility] , [place] 05-14-2020 10:31-0400 BP Diastolic 91 mm[Hg] Tuyet Miller [facility] , [place] 05-14-2020 10:31-0400 BP Systolic 122 mm[Hg] Tuyet Miller [facility] , [place] 05-14-2020 10:31-0400 Pulse (Heart Rate) 102 /min Tuyet Miller [facility], [place] 05-14-2020 10:31-0400 Pulse Oximetry 99 % Tuyet Miller [facility] , [place] 05-14-2020 07:55-0400 BMI (Body Mass Index) 33.77 kg/m2 Tuyet Miller [facility], [place] 05-14-2020 07:55-0400 Body weight 119.3 kg Tuyet Miller [facility] , [place] 05-14-2020 07:55-0400 Height 188 cm Tuyet Miller [facility] , [place] 05-14-2020 07:45-0400 Respiratory Rate 14 /min Tuyet Miller [facility] [place] Encounters Encounter Date Encounter Type Care Provider Facility Start: 09-08-2025 ambulatory Mary Alice Evangelista Facility:[facility] Start: 08-27-2025 ambulatory Phoebe Adam NP Facility :[facility] Start: 07-12-2025 End: 07-13-2025 Refill Artie Jackson MD Work Phone: [facility] Comment on above: Hyperlipidemia LDL g oal <70 Cardiomyopathy, unsp ecified type (HCC); Essential hypertension Start: 07-09-2025 End: 07-09-2025 Refill Shreya Olivera DIRECTOR OF OPERATIONS - REGULATORY AFFAIRS INTERN Work Phone: [facility] Start: 06-18-2025 End: 08-18-2025 Follow-up encounter Shreya Olivera DIRECTOR OF OPERATIONS - REGULATORY AFFAIRS INTERN Work Phone: [facility] Comment on above: Hemoglobin A1c, CBC auto differential, Basic metabolic panel Start: 06-16-2025 End: 06-16-2025 Office outpatient visit 25 minutes Shreya Olivera DIRECTOR OF OPERATIONS - REGULATORY AFFAIRS INTERN Work Phone: [facility] Comment on above: Type 2 diabetes diane itus with diabetic polyneuropathy, with long-term current use of insulin (HCC) (Primary Dx); Chronic renal disease, stage IV (HCC); Low hemoglobin; Cardiomyopathy, unspecified type (HCC); 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); Essential hypertension; Hyperlipidemia LDL goal <70; Paroxysmal atrial fibrillation ([facility]); Open wound of skin Start: 06-16-2025 End: 06-18-2025 Refill Artie Jackson MD Work Phone: [facility] Comment on above: Type 2 diabetes diane itus with diabetic polyneuropathy, with long-term current use of insulin ([facility]) Start: 06-11-2025 End: 06-12-2025 Refill Shreyamar Olivera DIRECTOR OF OPERATIONS - REGULATORY AFFAIRS INTERN Work Phone: [facility] Start: 06-10-2025 End: 06-10-2025 Orders Only Phoebe Adam DIRECTOR OF OPERATIONS - REGULATORY AFFAIRS INTERN Work Phone: [facility] Comment on above: Type 2 diabetes diane itus with diabetic polyneuropathy, with long-term current use of insulin ([facility]) Start: 05-21-2025 End: 05-21-2025 Refill Artie Jackson MD Work Phone: [facility] Start: 04-27-2025 End: 04-28-2025 Refill Shreya Bert DIRECTOR OF OPERATIONS - REGULATORY AFFAIRS INTERN Work Phone: [facility] Comment on above: Diabetes mellitus wi th proteinuria (CMS/HCC) (HCC) (HCC); Type 2 diabetes mellitus with diabetic polyneuropathy, with long-term current use of insulin ([facility]) Start: 04-15-2025 End: 04-16-2025 Refill Artie Jackson MD Work Phone: [facility] Start: 03-16-2025 [facility] Facility: [facility] Start: 03-02-2025 End: 03-02-2025 Orders Only Phoebe Adam DIRECTOR OF OPERATIONS - REGULATORY AFFAIRS INTERN Work Phone: [facility] Start: 02-17-2025 ambulatory ARTIE JACKSON [facility] Start: 02-10-2025 End: 02-15-2025 Evaluation and management of inpatient VIRIDIANA WILLIAM MD [facility] Start: 02-09-2025 End: 02-10-2025 Emergency department patient visit VIRIDIANA WILLIAM MD Facility:[facility] Start: 02-09-2025 End: 02-09-2025 ambulatory GARRICK VELASQUEZ [facility] Start: 02-05-2025 End: 02-05-2025 ambulatory Marielos Lu RN [facility] Clinical Communication Start: 02-05-2025 End: 02-05-2025 Patient encounter procedure Marielos Lu RN [facility] Clinical Communication Start: 01-22-2025 End: 01-22-2025 Office outpatient visit 25 minutes Jose Morrison MD Work Phone: [facility] [place] Comment on above: 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); Claire gangrene Start: 01-22-2025 End: 01-22-2025 ambulatory JOSE MORRISON [facility] Start: 01-22-2025 End: 01-29-2025 Telephone encounter Jose Morrison MD [facility] Phone[facility] Comment on above: Surgery Scheduling Start: 01-04-2025 End: 01-05-2025 Refill Phoebe Adam DIRECTOR OF OPERATIONS - REGULATORY AFFAIRS INTERN Work Phone: [facility] Comment on above: Type 2 diabetes diane itus with diabetic polyneuropathy, with long-term current use of insulin (HCC) Start: 12-30-2024 ambulatory Satnam Galan Facility: [facility] Start: 12-09-2024 End: 12-15-2024 Telephone encounter Garrick Velasquez MD Work Phone: [facility] Comment on above: Surgery Scheduling Start: 12-09-2024 End: 12-09-2024 Office outpatient new 45 minutes Garrick Velasquez MD Work Phone: [facility] [place] Comment on above: Claire gangrene (P rimary Dx); 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; Gross hematuria; Chronic kidney disease, unspecified CKD stage Start: 12-09-2024 End: 12-09-2024 ambulatory [facility] Start: 11-26-2024 ambulatory Janel Dias NP Fa cility:[facility] Start: 11-26-2024 End: 12-19-2024 ambulatory [facility] Facility:[facility] Start: 11-19-2024 End: 11-20-2024 Refill Phoebe Adam DIRECTOR OF OPERATIONS - REGULATORY AFFAIRS INTERN Work Phone: [facility] Start: 10-21-2024 End: 11-24-2024 Telephone encounter Garrick Velasquez MD Work Phone: [facility] Comment on above: Cancelled Appointmen t Start: 10-15-2024 End: 10-18-2024 ambulatory [facility] Facility:[facility] Start: 09-22-2024 End: 09-22-2024 Office outpatient visit 25 minutes Phoebe Adam DIRECTOR OF OPERATIONS - REGULATORY AFFAIRS INTERN Work Phone: [facility] Comment on above: Diabetes mellitus wi [...] Start: 09-22-2024 End: 09-22-2024 ambulatory PHOEBE ADAM [facility] Start: 09-17-2024 ambulatory Satnam Vásquezins Facility: [facility] Start: 09-17-2024 End: 09-18-2024 ambulatory [facility] Facility:[facility] Start: 09-11-2024 End: 09-11-2024 Refill Shreya Bridenthal DIRECTOR OF OPERATIONS - REGULATORY AFFAIRS INTERN Work Phone: [facility] Comment on above: Essential hypertensi on Start: 08-18-2024 End: 08-18-2024 Orders Only Phoebe Bay Jair DIRECTOR OF OPERATIONS - REGULATORY AFFAIRS INTERN Work Phone: [facility] Start: 08-10-2024 End: 08-11-2024 Refill Shreya Bridenthal DIRECTOR OF OPERATIONS - REGULATORY AFFAIRS INTERN Work Phone: [facility] Comment on above: Essential hypertensi on (Primary Dx) Start: 06-18-2024 End: 06-30-2024 Evaluation and management of inpatient DR ILEANA RICO MD [facility] Start: 06-17-2024 ambulatory PHOEBE Bay JAIR DIRECTOR OF OPERATIONS-FOUNDER / CEO Facility:[facility] Start: 06-06-2024 End: 06-06-2024 Emergency department patient visit JIMENA GARDNERAlexis POSEY [facility] Start: 05-31-2024 End: 06-02-2024 Refill Artie Jackson MD Work Phone: [facility] Comment on above: Type 2 diabetes diane itus with diabetic polyneuropathy, with long-term current use of insulin (HCC) Start: 05-08-2024 End: 05-15-2024 Evaluation and management of inpatient DR TORI JOHNSON MD [facility] Start: 05-07-2024 End: 05-08-2024 Emergency department patient visit JIMENA HOGAN DO [facility] Start: 04-16-2024 End: 05-06-2024 Evaluation and management of inpatient JOAN MCKEON MD [facility] Start: 04-15-2024 End: 04-16-2024 Emergency department patient visit MARTÍNEZ ACUNA MD [facility] Start: 04-06-2024 End: 04-06-2024 Emergency department patient visit MATHEW MALONE DO [facility] Start: 04-02-2024 Refill Artie Jackson MD Work Phone: [facility] Start: 03-08-2024 End: 03-11-2024 ambulatory BRAVO PEOPLES DIRECTOR OF OPERATIONS-REGULATORY AFFAIRS INTERN Facility:[facility] Start: 03-08-2024 End: 03-11-2024 Observation BRAVO PEOPLES DIRECTOR OF OPERATIONS-REGULATORY AFFAIRS INTERN [facility] Start: 02-18-2024 Refill Shreya pratt DIRECTOR OF OPERATIONS - REGULATORY AFFAIRS INTERN Work Phone: [facility] Start: 02-05-2024 Refill Artie Jackson MD Work Phone: [facility] Comment on above: Type 2 diabetes diane itus with diabetic polyneuropathy, with long-term current use of insulin ([facility]) ([facility]); Diabetic polyneuropathy associated with type 2 diabetes mellitus (CMS/HCC) (HCC); Diabetes mellitus with proteinuria (CMS/HCC) ([facility]) ([facility]) Start: 01-20-2024 Refill Phoebe Adam DIRECTOR OF OPERATIONS - REGULATORY AFFAIRS INTERN Work Phone: [facility] Comment on above: Hyperlipidemia LDL g oal <70 Start: 01-01-2024 Refill Shreya Kendall santa DIRECTOR OF OPERATIONS - REGULATORY AFFAIRS INTERN Work Phone: [facility] Start: 12-26-2023 Orders Only Phoebe Adam DIRECTOR OF OPERATIONS - REGULATORY AFFAIRS INTERN Work Phone: [facility] Comment on above: Type 2 diabetes diane itus with diabetic polyneuropathy, with long-term current use of insulin (CMS/HCC) ([facility]); Chronic renal disease, stage IV ([facility]) Start: 12-16-2023 Refill Shreya Argueta santa DIRECTOR OF OPERATIONS - REGULATORY AFFAIRS INTERN Work Phone: [facility] Comment on above: Type 2 diabetes diane itus with diabetic polyneuropathy, with long-term current use of insulin (CMS/HCC) (HCC); Diabetic polyneuropathy associated with type 2 diabetes mellitus (CMS/HCC) ([facility]); Diabetes mellitus with proteinuria (CMS/HCC) ([facility]) (HCC) Start: 10-18-2023 Refill Phoebe Adam DIRECTOR OF OPERATIONS - REGULATORY AFFAIRS INTERN Work Phone: [facility] Comment on above: Type 2 diabetes diane itus with diabetic polyneuropathy, with long-term current use of insulin (CMS/HCC) (HCC); Diabetic polyneuropathy associated with type 2 diabetes mellitus (CMS/HCC) ([facility]) Start: 10-17-2023 Orders Only Phoebe Adam DIRECTOR OF OPERATIONS - REGULATORY AFFAIRS INTERN Work Phone: [facility] Comment on above: Type 2 diabetes diane itus with diabetic polyneuropathy, with long-term current use of insulin (CMS/HCC) ([facility]) (Primary Dx); Chronic renal disease, stage IV ([facility]) Start: 10-03-2023 Orders Only Phoebe Adam DIRECTOR OF OPERATIONS - REGULATORY AFFAIRS INTERN Work Phone: [facility] Start: 10-03-2023 Refill Shreya Argueta santa DIRECTOR OF OPERATIONS - REGULATORY AFFAIRS INTERN Work Phone: [facility] Start: 08-26-2023 Refill Phoebe Adam DIRECTOR OF OPERATIONS - REGULATORY AFFAIRS INTERN Work Phone: [facility] Start: 08-15-2023 Refill Artie Jackson MD Work Phone: [facility] Start: 07-30-2023 Refill Shreya pratt DIRECTOR OF OPERATIONS - REGULATORY AFFAIRS INTERN Work Phone: [facility] Comment on above: Type 2 diabetes diane itus with diabetic polyneuropathy, with long-term current use of insulin ([facility]/HCC) (HCC); Diabetic polyneuropathy associated with type 2 diabetes mellitus (CMS/HCC) (HCC); Diabetes mellitus with proteinuria ([facility]/HCC) (HCC) Start: 07-30-2023 Telephone encounter Artie Ruiz MD Work Phone: [facility] Comment on above: other Start: 07-20-2023 Refill Phoebe Adam DIRECTOR OF OPERATIONS - REGULATORY AFFAIRS INTERN Work Phone: [facility] Comment on above: Hyperlipidemia LDL g oal <70 Start: 07-12-2023 Refill Phoebe Adam DIRECTOR OF OPERATIONS - REGULATORY AFFAIRS INTERN Work Phone: [facility] Start: 07-07-2023 End: 07-07-2023 Emergency department patient visit CLEM BOOKER MD [facility] Start: 07-05-2023 Refill Shreya pratt DIRECTOR OF OPERATIONS - REGULATORY AFFAIRS INTERN Work Phone: [facility] Comment on above: Type 2 diabetes diane itus with diabetic polyneuropathy, with long-term current use of insulin ([facility]) (HCC); Diabetic polyneuropathy associated with type 2 diabetes mellitus ([facility]/HCC) (HCC); Diabetes mellitus with proteinuria ([facility]/HCC) ([facility]) Start: 07-03-2023 Telephone encounter Kasey Hankins [facility] Comment on above: Orders Start: 07-02-2023 Orders Only Phoebe Adam DIRECTOR OF OPERATIONS - REGULATORY AFFAIRS INTERN Work Phone: [facility] Comment on above: Type 2 diabetes diane itus with diabetic polyneuropathy, with long-term current use of insulin (CMS/HCC) (HCC); Class 2 obesity due to excess calories without serious comorbidity with body mass index (BMI) of 38.0 to 38.9 in adult Start: 05-28-2023 Orders Only Phoebe Adam DIRECTOR OF OPERATIONS - REGULATORY AFFAIRS INTERN Work Phone: [facility] Comment on above: Type 2 diabetes diane itus with diabetic polyneuropathy, with long-term current use of insulin (CMS/HCC) (HCC) (Primary Dx) Start: 05-18-2023 Telephone encounter Artie Ruiz MD Work Phone: [facility] Comment on above: Release of Informati on Start: 05-13-2023 Refill Shreya pratt DIRECTOR OF OPERATIONS - REGULATORY AFFAIRS INTERN Work Phone: [facility] Comment on above: Type 2 diabetes diane itus with diabetic polyneuropathy, with long-term current use of insulin (CMS/HCC) (HCC); Diabetic polyneuropathy associated with type 2 diabetes mellitus (CMS/HCC) (HCC); Diabetes mellitus with proteinuria (CMS/HCC) (HCC) Start: 05-09-2023 Orders Only Shreya pratt DIRECTOR OF OPERATIONS - REGULATORY AFFAIRS INTERN Work Phone: [facility] Start: 05-05-2023 Refill Shreya pratt DIRECTOR OF OPERATIONS - REGULATORY AFFAIRS INTERN Work Phone: [facility] Comment on above: Type 2 diabetes diane itus with diabetic polyneuropathy, with long-term current use of insulin (CMS/HCC) (HCC) Start: 04-20-2023 Refill Phoebe Adam DIRECTOR OF OPERATIONS - REGULATORY AFFAIRS INTERN Work Phone: [facility] Start: 04-06-2023 Telephone encounter Shreya monroe DIRECTOR OF OPERATIONS - REGULATORY AFFAIRS INTERN Work Phone: [facility] Comment on above: Results Start: 03-21-2023 Orders Only Phoebe Adam DIRECTOR OF OPERATIONS - REGULATORY AFFAIRS INTERN Work Phone: [facility] Comment on above: Diabetes mellitus wi th proteinuria (CMS/HCC) (HCC) (Primary Dx); Elevated serum creatinine Start: 03-20-2023 Refill Artie Jackson MD Work Phone: [facility] Start: 03-19-2023 Refill Phoebe Adam DIRECTOR OF OPERATIONS - REGULATORY AFFAIRS INTERN Work Phone: [facility] Start: 01-22-2023 Ophthalmic examinati on and evaluation Phoebe Adam DIRECTOR OF OPERATIONS - REGULATORY AFFAIRS INTERN Work Phone: [facility] Start: 01-22-2023 Refill Phoebe Adam DIRECTOR OF OPERATIONS - REGULATORY AFFAIRS INTERN Work Phone: [facility] Comment on above: Type 2 diabetes diane itus with diabetic polyneuropathy, with long-term current use of insulin (CMS/HCC) ([facility]); Diabetic polyneuropathy associated with type 2 diabetes mellitus (CMS/HCC) ([facility]); Diabetes mellitus with proteinuria (CMS/HCC) ([facility]) [facility] ([facility] Start: 01-21-2023 Refill Artie Jackson MD Work Phone: [facility] Start: 01-10-2023 Orders Only Phoebe Adam DIRECTOR OF OPERATIONS - REGULATORY AFFAIRS INTERN Work Phone: [facility] Comment on above: Diabetes mellitus wi th proteinuria (CMS/HCC) (HCC) (Primary Dx); Elevated serum creatinine; Type 2 diabetes mellitus with diabetic polyneuropathy, with long-term current use of insulin (CMS/HCC) ([facility]); Poorly controlled type 2 diabetes mellitus (CMS/HCC) ([facility]) Start: 01-08-2023 Lorna Jackson MD Work Phone: [facility] Start: 01-08-2023 End: 01-08-2023 Office outpatient visit 25 minutes Phoebe Adam DIRECTOR OF OPERATIONS - REGULATORY AFFAIRS INTERN Work Phone: [facility] Comment on above: Type 2 diabetes diane itus with diabetic polyneuropathy, with long-term current use of insulin ([facility]) ([facility]) (Primary Dx); Diabetic polyneuropathy associated with type 2 diabetes mellitus ([facility]/HCC) (HCC); Diabetes mellitus with proteinuria ([facility]/HCC) ([facility]); Encounter for diabetic foot exam ([facility]); Essential hypertension; Hyperlipidemia LDL goal <70; Cigarette nicotine dependence without complication; Class 2 obesity due to excess calories without serious comorbidity with body mass index (BMI) of 38.0 to 38.9 in adult; Gastroesophageal reflux disease, unspecified whether esophagitis present; Screening for prostate cancer Start: 01-01-2023 Lorna Jackson MD Work Phone: [facility] Start: 12-22-2022 End: 12-22-2022 Office outpatient new 20 minutes Tu Goetz MD Work Phone: [facility] Comment on above: Charcot's joint of r ight foot; Type 2 diabetes mellitus with diabetic polyneuropathy, with long-term current use of insulin ([facility]) ([facility]); Diabetic polyneuropathy associated with type 2 diabetes mellitus ([facility]) ([facility]) Start: 12-22-2022 End: 12-22-2022 Subsequent hospital visit by physician Tu Goetz MD Work Phone: [facility] Radiology Comment on above: Right foot pain Start: 12-08-2022 Transcribe Orders Sania BORREGO Work Phone: [facility] ED Comment on above: Pain in right foot ( Primary Dx) Start: 12-07-2022 Orders Only Sania BORREGO Work Phone: [facility] Comment on above: Right foot pain (Paradise rachel Dx) Start: 11-22-2022 Lorna Jackson MD Work Phone: [facility] Start: 09-28-2022 Transcribe Orders Shreya oconnor DIRECTOR OF OPERATIONS - REGULATORY AFFAIRS INTERN Work Phone: [facility] Start: 12-13-2021 End: 12-14-2021 Emergency department patient visit DR RAMON MIN MD [facility] Start: 09-04-2021 End: 09-04-2021 Emergency department patient visit Artie Jackson MD Work Phone: [facility] ED Comment on above: Finger swelling (Paradise rachel Dx); Pain of finger of left hand Start: 09-02-2021 End: 09-02-2021 Emergency department patient visit LATRELL MENDIOLA DO [facility] Start: 11-15-2020 End: 11-15-2020 Subsequent hospital visit by physician Shashank Finch Work Phone: [facility] General Surgery Comment on above: Arrived Start: 11-09-2020 End: 11-09-2020 Subsequent hospital visit by physician Shashank Finch Work Phone: [facility] Radiology Start: 05-14-2020 End: 05-14-2020 Subsequent hospital visit by physician Tuyet Gupta Work Phone: [facility] Surgery Comment on above: Arrived Procedures Date Procedure Procedure Detail Performing Clinician Start: 03-17-2025 Adult depression screening assessment Artie Jackson MD Work Phone: Start: 01-22-2025 AEROBIC AND ANAEROBI C CULTURE WITH STAIN Jose Morrison MD Work Phone: Start: 09-22-2024 Lipid 1996 panel - S theo or Plasma Phoebe Adam DIRECTOR OF OPERATIONS - REGULATORY AFFAIRS INTERN Work Phone: Start: 09-20-2024 Adult depression screening assessment Phoebe Adam DIRECTOR OF OPERATIONS - REGULATORY AFFAIRS INTERN Work Phone: Start: 08-26-2024 Adult depression screening assessment Shreya Olivera DIRECTOR OF OPERATIONS - REGULATORY AFFAIRS INTERN Work Phone: Start: 05-08-2023 Basic metabolic pane l calcium total Shreya Bert DIRECTOR OF OPERATIONS - REGULATORY AFFAIRS INTERN Work Phone: Start: 01-08-2023 Adult depression screening assessment Artie Jackson MD Work Phone: Start: 01-08-2023 Lipid 1996 panel - S theo or Plasma Sania BORREGO Work Phone: Start: 06-22-2021 Lipid 1996 panel - S theo or Plasma Artie Jackson MD Work Phone: Start: 11-15-2020 Basic metabolic pane l calcium total Shashank D Stef Work Phone: Start: 11-15-2020 Blood count complete auto&auto difrntl wbc Shashank D Stef Work Phone: Start: 05-14-2020 OPERATIVE REPORT 3m Sca nning Start: 05-14-2020 Gluc bld gluc mntr d ev cleared fda spec home use Tuyet Gupta Work Phone: Start: 11-19-1992 Testis structure (val dy structure) BRAVO PEOPLES DIRECTOR OF OPERATIONS-REGULATORY AFFAIRS INTERN Comment on above: Twisted testicle Amputation B[employer]VO PEOPLES APR N-REGULATORY AFFAIRS INTERN Comment on above: Right foot 2nd and 3 rd toes, left foot 4th toe Testis structure (val dy structure) LATRELL MENDIOLA DO Plan of Treatment Date Care Activity Detail Author Start: 2052 RSV Immunization for Adults (1 - 1-dose 75+ series) RSV Immunization for Adults (1 - 1-dose 75+ series) Colectica Auterra Start: 2037 RSV Immunization aged 60 or older (1 - 1-dose 60+ series) RSV Immunization aged 60 or older (1 - 1-dose 60+ series) Colectica Auterra Start: 08-17-2028 DTaP/Tdap/Td vaccine (2 - Td or Tdap) DTaP/Tdap/Td vaccine (2 - Td or Tdap) [employer] Work Phone: Start: 08-17-2028 DTaP/Tdap/Td Vaccines (2 - Td or Tdap) DTaP/Tdap/Td Vaccines (2 - Td or Tdap) [facility] Start: 2027 Zoster Vaccines (1 of 2) Zoster Vaccines (1 of 2) [facility] Start: 06-16-2026 Creatinine measurement Creatinine Level [facility] Start: 06-16-2026 Hemoglobin A1c measurement Diabetes: Hemoglobin A1C [facility] Start: 06-16-2026 Potassium measurement Potassium Level [facility] Start: 03-17-2026 Depression Screening Depression Screening [facility] Start: 10-30-2025 Glaucoma screening Diabetes: Retinopathy Screening [facility] Start: 09-24-2025 Diabetes: Urine Albumin-Creatinine Ratio for Kidney Health Diabetes: Urine Albumin-Creatinine Ratio for Kidney Health [facility] Start: 09-22-2025 COVID-19 Vaccine () COVID-19 Vaccine () [facility] Comment on above: Postponed from 07/20/2024 (Patient Refus ed) Start: 09-22-2025 Creatinine measurement Creatinine Level [facility] Start: 09-22-2025 Diabetes: Estimated Glomerular Filtration Rate for Kidney Health Diabetes: Estimated Glomerular Filtration Rate for Kidney Health [facility] Start: 09-22-2025 Diabetic foot examination Diabetes: Foot Exam [facility] Start: 09-22-2025 Hemoglobin A1c measurement Diabetes: Hemoglobin A1C [facility] Start: 09-22-2025 Hepatitis A Vaccines (1 of 2 - Risk 2-dose series) Hepatitis A Vaccines (1 of 2 - Risk 2-dose series) [facility] Comment on above: Postponed from 1996 (Patient Refus ed) Start: 09-22-2025 Hepatitis C screening Hepatitis C Screening [facility] Comment on above: Postponed from 1995 (Patient Refus ed) Start: 09-22-2025 HIV screening HIV Screening [facility] Comment on above: Postponed from 1977 (Patient Refus ed) Start: 09-22-2025 Lipid panel Lipid Panel [facility] Start: 09-22-2025 Pneumococcal Vaccine: Pediatrics (0 to 5 Years) and At-Risk Patients (6 to 49 Years) (1 of 2 - PCV) Pneumococcal Vaccine: Pediatrics (0 to 5 Years) and At-Risk Patients (6 to 49 Years) (1 of 2 - PCV) [facility] Comment on above: Postponed from 1996 (Patient Refus ed) Start: 09-22-2025 Pneumococcal Vaccine: Pediatrics (0 to 5 Years) and At-Risk Patients (6 to 64 Years) (1 of 2 - PCV) Pneumococcal Vaccine: Pediatrics (0 to 5 Years) and At-Risk Patients (6 to 64 Years) (1 of 2 - PCV) [facility] Comment on above: Postponed from 1983 (Patient Refus ed) Start: 09-22-2025 Potassium measurement Potassium Level [facility] Start: 09-22-2025 Screening for malignant neoplasm of colon Colorectal Cancer Screening [facility] Comment on above: Postponed from 1977 (Patient Refus ed) Start: 09-20-2025 Depression Screening Depression Screening [facility] Start: 09-15-2025 End: 09-15-2025 Patient encounter procedure [facility] Start: 08-26-2025 Depression Screening Depression Screening [facility] Start: 07-20-2025 COVID-19 Vaccine ( season) COVID-19 Vaccine () [facility] Start: 07-20-2025 Influenza vaccination [facility] Start: 06-16-2025 End: 06-16-2026 Basic metabolic 1998 panel - Serum or Plasma Basic metabolic panel Lab Routine Chronic renal disease, stage IV (HCC) Expected: 06/16/2025 (Approximate), Expires: 06/16/2026 [facility] Comment on above: Expected: 06/16/2025 (Approximate), Expi res: 06/16/2026 Start: 06-16-2025 End: 06-16-2026 CBC W Auto Differential panel - Blood CBC auto differential Lab Routine Low hemoglobin Expected: 06/16/2025 (Approximate), Expires: 06/16/2026 [facility] Comment on above: Expected: 06/16/2025 (Approximate), Expi res: 06/16/2026 Start: 06-16-2025 End: 06-16-2026 Hemoglobin A1c measurement Hemoglobin A1c Lab Routine Type 2 diabetes mellitus with diabetic polyneuropathy, with long-term current use of insulin (HCC) Expected: 06/16/2025 (Approximate), Expires: 06/16/2026 [facility] Work Phone: Comment on above: Expected: 06/16/2025 (Approximate), Expi res: 06/16/2026 Start: 06-16-2025 End: 06-16-2025 Patient encounter procedure 06/16/2025 1:20 PM EDT Office Visit [facility] [place] [address] [place] [address] [place] [address] Shreya Olivera, DIRECTOR OF OPERATIONS - REGULATORY AFFAIRS INTERN [address] [place] [address] [place] [address] [facility] [place] Start: 06-08-2025 End: 06-08-2025 Patient encounter procedure 06/08/2025 8:20 AM EDT Office Visit [facility] [place] [address] [place] [address] [place] [address] Phoebe Adam, DIRECTOR OF OPERATIONS - REGULATORY AFFAIRS INTERN [address] [place] [address] [facility] [place] Start: 05-18-2025 Influenza vaccination Influenza Vaccine (#1) [facility] Comment on above: Postponed from 07/20/2024 (Patient Refus ed) Start: 05-13-2025 End: 05-13-2025 Patient encounter procedure 05/13/2025 8:20 AM EDT Office Visit [facility] [place] [address] [place] [address] [place] [address] Shreya Olivera, DIRECTOR OF OPERATIONS - REGULATORY AFFAIRS INTERN [address] [place] [address] [place] [address] [facility] [place] Start: 03-12-2025 End: 03-12-2025 Patient encounter procedure 03/12/2025 8:40 AM EDT Office Visit [facility] [place] [address] [place] [phone] Emily Darby DO [address] [place] [address] [facility] [place] Start: 03-10-2025 End: 03-10-2025 Patient encounter procedure 03/10/2025 3:20 PM EDT Office Visit [facility] [place] [address] [place] [address] Bridenthal, Shreya, DIRECTOR OF OPERATIONS - REGULATORY AFFAIRS INTERN [address] [facility] [place] [address] [place] [address] [facility] Start: 02-26-2025 End: 02-26-2025 Admission to same day surgery center 02/26/2025 9:30 AM EDT - 02/26/2025 10:30 AM EDT Surgery [facility] MA[facility] OR [address] [place] [phone] Jose Morrison MD [address] [address] CYSTOSCOPY, BILATERAL RETROGRADE PYELOGRAM, RETROGRADE URETHROGRAM [80798 (CPT )] [facility] OR Comment on above: CYSTOSCOPY, BILATERAL RETROGRADE PYELOGR AM, RETROGRADE URETHROGRAM [28985 (CPT )] Start: 02-26-2025 End: 02-26-2025 Cysto bladder w/ureteral catheterization CYSTOSCOPY, WITH RETROGRADE PYELOGRAM Vesical fistula, 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 02/26/2025 9:30 AM EDT [facility] Operating Room Start: 02-26-2025 End: 02-26-2025 Cystography minimum 3 views rs&i CYSTOGRAM Vesical fistula, 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 02/26/2025 9:30 AM EDT [facility] Operating Room Start: 02-26-2025 Subsequent hospital visit by physician 02/26/2025 9:30 AM EDT Hospital Encounter [facility] MA[facility] OR [address] [place] [phone] Jose Morrison MD 95 [facility] [address] [place] [address] [facility] OR Start: 02-19-2025 End: 02-19-2025 Admission to establishment 02/19/2025 2:00 PM EDT Pre-Admission Testing [facility] Pre-Admit Testing [address] [place] [phone] [facility] Pre-Admit Testing Start: 02-09-2025 End: 02-09-2025 Patient encounter procedure 02/09/2025 8:[address] [facility] [address] [place] [phone] Garrick Velasquez MD [address] [address] [facility] [address] Start: 02-09-2025 Subsequent hospital visit by physician 02/09/2025 8:45 AM EDT Hospital Encounter [facility] [address] [place] [address] Garrick Velasquez MD [address] [address] [facility] [address] Start: 02-02-2025 End: 02-02-2025 Patient encounter procedure 02/02/2025 2:20 PM EDT Office Visit [facility] [place] [address] [place] [address] [place] [address] Phoebe Adam S, DIRECTOR OF OPERATIONS - REGULATORY AFFAIRS INTERN [address] [facility] [place] [address] [facility] [place] Start: 01-30-2025 End: 01-30-2025 Clinical Support 01/30/2025 11:00 AM EDT Clinical Support [facility] [place] [address] [facility] [place] [address] [facility] [place] Start: 01-21-2025 End: 01-21-2025 Patient encounter procedure 01/21/2025 11:30 AM EST [facility] 201 [facility] [address] [place] [phone] Jose Morrison MD [address] [place] [address] [facility] Start: 12-30-2024 End: 12-30-2024 Patient encounter procedure 12/30/2024 9:40 AM EST Office Visit [facility] [address] [place] [phone] Jose Morrison MD [address] [place] [address] [facility] Start: 12-24-2024 End: 12-24-2024 Patient encounter procedure 12/24/2024 2:20 PM EST Office Visit [facility] [address] [place] [address] [place] [address] Phoebe Adam, MOIRA - REGULATORY AFFAIRS INTERN [address] [place] [address] [place] [address] [facility] Start: 12-24-2024 End: 12-24-2024 Patient encounter procedure 12/24/2024 11:50 AM EST Office Visit [facility] [address] [place] [address] Jose Morrison MD [address] [place] [address] [facility] Start: 12-23-2024 End: 12-23-2024 Patient encounter procedure 12/23/2024 3:[address] [facility] [address] [place] [phone] Garrick Velasquez MD [address] [place] [address] [facility] [address] Start: 12-23-2024 Subsequent hospital visit by physician 12/23/2024 3:45 PM EST Hospital Encounter [facility] CT [address] [place] [address] Garrick Velasquez MD [address] [facility] 3 [place] [address] [facility] [address] Start: 12-16-2024 End: 12-16-2024 Patient encounter procedure 12/16/2024 10:30 AM EST Office Visit [facility] [address] [facility] [address] [place] [address] Jose Morrison MD 95 [facility] [address] [place] [address] [facility] Start: 12-09-2024 End: 12-09-2025 Basic metabolic 1998 panel - Serum or Plasma Basic metabolic panel Lab Routine Chronic kidney disease, unspecified CKD stage Expected: 12/09/2024 (Approximate), Expires: 12/09/2025 [facility] Comment on above: Expected: 12/09/2024 (Approximate), Expi res: 12/09/2025 Start: 12-09-2024 End: 12-09-2025 CT Abdomen and Pelvis WO contrast CT abdomen pelvis wo IV contrast Imaging Routine Gross hematuria Expected: 12/09/2024, Expires: 12/09/2025 [facility] Work Phone: Comment on above: Expected: 12/09/2024, Expires: Start: 12-09-2024 End: 12-09-2024 Patient encounter procedure 12/09/2024 9:30 AM EST Office Visit [facility] [address] [facility] [address] [place] [address] Garrick Velasquez MD 201 [facility] 3 [place] [address] [facility] Start: 11-25-2024 End: 11-25-2024 Patient encounter procedure 11/25/2024 9:30 AM EST Office [facility] [address] [facility] [address] [place] [phone] Garrick Velasquez MD [address] [place] [address] [facility] Start: 10-30-2024 Glaucoma screening Diabetes: Retinopathy Screening [facility] Start: 10-27-2024 End: 10-27-2024 Patient encounter procedure 10/27/2024 1:20 PM EST Office Visit [facility] [address] [facility] [place] [address] [place] [address] Phoebe Adam APRN - [facility] [address] [facility] [place] [address] [place] [address] [facility] Start: 10-16-2024 Creatinine measurement Creatinine Level [facility] Start: 10-16-2024 Diabetes: Estimated Glomerular Filtration Rate for Kidney Health Diabetes: Estimated Glomerular Filtration Rate for Kidney Health [facility] Start: 10-16-2024 Potassium measurement Potassium Level [facility] Start: 09-22-2024 End: 09-22-2025 Bacteria identified in Urine by Culture Urine culture (clean catch) Microbiology Routine Necrotizing fasciitis (HCC) Expected: 09/22/2024 (Approximate), Expires: 09/22/2025 [facility] Comment on above: Expected: 09/22/2024 (Approximate), Expi [...] goal <70 Expected: 09/22/2024 (Approximate), Expires: 09/22/2025 [facility] Comment on above: Expected: 09/22/2024 (Approximate), Expi [...] goal <70 Expected: 09/22/2024 (Approximate), Expires: 09/22/2025 [facility] Comment on above: Expected: 09/22/2024 (Approximate), Expi res: 09/22/2025 Start: 09-22-2024 End: 09-22-2025 Hemoglobin A1c measurement Hemoglobin A1c Lab Routine 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) Type 2 diabetes mellitus with diabetic polyneuropathy, with long-term current use of insulin (HCC) Expected: 09/22/2024 (Approximate), Expires: 09/22/2025 [facility] Comment on above: Expected: 09/22/2024 (Approximate), Expi res: 09/22/2025 Start: 09-22-2024 End: 09-22-2025 Lipid 1996 panel - Serum or Plasma Lipid panel Lab Routine Cardiomyopathy, unspecified type (HCC) Hyperlipidemia LDL goal <70 Expected: 09/22/2024 (Approximate), Expires: 09/22/2025 [facility] Work Phone: Comment on above: Expected: 09/22/2024 (Approximate), Expi res: 09/22/2025 Start: 09-22-2024 End: 09-22-2025 Microalbumin/Creatinine panel in random Urine Microalbumin / creatinine urine ratio Lab Routine 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) Type 2 diabetes mellitus with diabetic polyneuropathy, with long-term current use of insulin (HCC) Chronic renal disease, stage IV (HCC) Expected: 09/22/2024 (Approximate), Expires: 09/22/2025 [facility] Comment on above: Expected: 09/22/2024 (Approximate), Expi res: 09/22/2025 Start: 09-22-2024 End: 09-22-2025 PSA Total (Screening) PSA Total (Screening) Lab Routine Screening for prostate cancer Expected: 09/22/2024 (Approximate), Expires: 09/22/2025 [facility] Comment on above: Expected: 09/22/2024 (Approximate), Expi res: 09/22/2025 Start: 09-22-2024 End: 09-22-2025 Urinalysis macro (dipstick) panel - Urine POCT Urinalysis dipstick Point of Care Testing Routine Necrotizing fasciitis (HCC) Expected: 09/22/2024, Expires: 09/22/2025 [facility] Comment on above: Expected: 09/22/2024, Expires: Start: 09-22-2024 End: 09-22-2024 Patient encounter procedure 09/22/2024 1:40 PM EST Office Visit [facility] [place] [address] [place] [address] [place] [address] Phoebe Adam, DIRECTOR OF OPERATIONS - REGULATORY AFFAIRS INTERN [address] [place] [address] [facility] Start: 08-27-2024 End: 08-27-2024 Patient encounter procedure 08/27/2024 10:00 AM EDT Office Visit [facility] [place] [address] [place] [address] [place] [address] Phoebe Adam, DIRECTOR OF OPERATIONS - REGULATORY AFFAIRS INTERN [address] [place] [address] [place] [address] [facility] Start: 07-20-2024 COVID-19 Vaccine () COVID-19 Vaccine () [facility] Start: 07-20-2024 COVID-19 Vaccine ( season) COVID-19 Vaccine () [facility] Start: 07-20-2024 Influenza vaccination [facility] Start: 04-09-2024 End: 04-09-2024 Patient encounter procedure 04/09/2024 10:00 AM EDT Office Visit [facility] [address] [place] [address] [place] [address] Phoebe Adam, DIRECTOR OF OPERATIONS - REGULATORY AFFAIRS INTERN [address] [place] [address] [place] [address] [facility] Start: 04-05-2024 Hemoglobin A1c measurement Diabetes: Hemoglobin A1C [facility] Start: 02-25-2024 End: 02-25-2024 Patient encounter procedure 02/25/2024 1:20 PM EDT Office Visit [facility] [address] [place] [address] [place] [address] Phoebe Adam, DIRECTOR OF OPERATIONS - REGULATORY AFFAIRS INTERN [address] [place] [address] [place] [address] [facility] Start: 02-18-2024 End: 02-18-2024 Patient encounter procedure 02/18/2024 2:20 PM EDT Office Visit [facility] [address] [place] [address] [place] [address] Phoebe Adam, DIRECTOR OF OPERATIONS - REGULATORY AFFAIRS INTERN [address] [place] [address] [place] [address] [facility] Start: 01-28-2024 End: 01-28-2024 Patient encounter procedure 01/28/2024 10:00 AM EDT Office Visit [facility] [address] [place] [address] [place] [address] Phoebe Adam, DIRECTOR OF OPERATIONS - REGULATORY AFFAIRS INTERN [address] [place] [address] [place] [address] [facility] Start: 01-08-2024 COVID-19 Vaccine (#1) COVID-19 Vaccine (#1) [facility] Comment on above: Postponed from 1977 (Patient Refus ed) Start: 01-08-2024 Depression Screening Depression Screening [facility] Start: 01-08-2024 Diabetes: Urine Albumin-Creatinine Ratio for Kidney Health Diabetes: Urine Albumin-Creatinine Ratio for Kidney Health [facility] Start: 01-08-2024 Diabetic foot examination Diabetes: Foot Exam [facility] Start: 01-08-2024 Hepatitis C screening Hepatitis C Screening [facility] Comment on above: Postponed from 1995 (Patient Refus ed) Start: 01-08-2024 HIV screening HIV Screening [facility] Comment on above: Postponed from 1977 (Patient Refus ed) Start: 01-08-2024 Lipid panel Lipid Panel [facility] Start: 01-08-2024 Pneumococcal Vaccine: Pediatrics (0 to 5 Years) and At-Risk Patients (6 to 64 Years) (1 - PCV) Pneumococcal Vaccine: Pediatrics (0 to 5 Years) and At-Risk Patients (6 to 64 Years) (1 - PCV) [facility] Comment on above: Postponed from 1983 (Patient Refus ed) Start: 01-08-2024 Pneumococcal Vaccine: Pediatrics (0 to 5 Years) and At-Risk Patients (6 to 64 Years) (1 of 2 - PCV) Pneumococcal Vaccine: Pediatrics (0 to 5 Years) and At-Risk Patients (6 to 64 Years) (1 of 2 - PCV) [facility] Comment on above: Postponed from 1983 (Patient Refus ed) Start: 01-08-2024 Screening for malignant neoplasm of colon Colorectal Cancer Screening [facility] Comment on above: Postponed from 1977 (Patient Refus ed) Start: 01-08-2024 Urine screening for protein Diabetes: Urine Protein Screening [facility] Start: 10-30-2023 End: 10-30-2023 Patient encounter procedure 10/30/2023 8:00 AM EST Office Visit [facility] [address] [facility] [place] [address] hSreya Olivera APRN - REGULATORY AFFAIRS INTERN [address] [place] [address] [facility] Start: 07-20-2023 COVID-19 Vaccine ( season) COVID-19 Vaccine ( season) [facility] Start: 07-20-2023 Influenza vaccination [facility] Start: 07-06-2023 Hemoglobin A1c measurement Diabetes: Hemoglobin A1C [facility] Start: 07-03-2023 End: 07-03-2024 Bacteria identified in Urine by Culture Urine culture (clean catch) Microbiology Routine Urinary frequency Expected: 07/03/2023 (Approximate), Expires: 07/03/2024 [facility] Work Phone: Comment on above: Expected: 07/03/2023 (Approximate), Expi res: 07/03/2024 Start: 07-03-2023 End: 07-03-2023 Clinical Support 07/03/2023 11:00 AM EDT Clinical Support [facility] [address] [place] [address] [facility] Start: 05-18-2023 Influenza vaccination Influenza Vaccine (#1) [facility] Comment on above: Postponed from 07/20/2022 (Patient Refus ed) Start: 05-08-2023 End: 05-08-2023 Clinical Support 05/08/2023 11:00 AM EDT Clinical Support [facility] [address] [place] [address] [facility] Start: 05-03-2023 End: 05-03-2023 Clinical Support 05/03/2023 Clinical Support Family Medicine [facility] Start: 04-07-2023 Hemoglobin A1c measurement Diabetes: Hemoglobin A1C [facility] Start: 04-06-2023 End: 04-06-2023 Patient encounter procedure 04/06/2023 Office Visit Family Medicine Phoebe Adam, DIRECTOR OF OPERATIONS - REGULATORY AFFAIRS INTERN [address] [place] [address] [facility] Start: 03-30-2023 End: 03-30-2023 Patient encounter procedure 03/30/2023 Office Visit Endocrinology Carole Beltre APRN - [employer] [address] [address] [facility] Start: 01-08-2023 End: 01-08-2024 CBC panel [...] in adult Expected: 01/08/2023 (Approximate), Expires: 01/08/2024 [facility] Work Phone: Comment on above: Expected: [...] in adult Expected: 01/08/2023 (Approximate), Expires: 01/08/2024 [facility] Comment on above: Expected: 01/08/2023 (Approximate), Expi res: 01/08/2024 Start: 01-08-2023 End: 01-08-2024 Hemoglobin A1c/Hemoglobin.total in Blood Hemoglobin A1c Lab Routine Type 2 diabetes mellitus with diabetic polyneuropathy, with long-term current use of insulin (CMS/HCC) (HCC) Diabetic polyneuropathy associated with type 2 diabetes mellitus (CMS/HCC) (HCC) Diabetes mellitus with proteinuria (CMS/HCC) (HCC) Expected: 01/08/2023 (Approximate), Expires: 01/08/2024 [facility] Comment on above: Expected: 01/08/2023 (Approximate), Expi res: 01/08/2024 Start: 01-08-2023 End: 01-08-2024 Lipid 1996 panel - Serum or Plasma Lipid panel Lab Routine Hyperlipidemia LDL goal <70 Expected: 01/08/2023 (Approximate), Expires: 01/08/2024 [facility] Comment on above: Expected: 01/08/2023 (Approximate), Expi res: 01/08/2024 Start: 01-08-2023 End: 01-08-2024 Microalbumin/Creatinine panel in random Urine Microalbumin / creatinine urine ratio Lab Routine Type 2 diabetes mellitus with diabetic polyneuropathy, with long-term current use of insulin (CMS/HCC) (HCC) Diabetic polyneuropathy associated with type 2 diabetes mellitus (CMS/HCC) (HCC) Diabetes mellitus with proteinuria (CMS/HCC) (HCC) Expected: 01/08/2023 (Approximate), Expires: 01/08/2024 [facility] Comment on above: Expected: 01/08/2023 (Approximate), Expi res: 01/08/2024 Start: 01-08-2023 End: 01-08-2024 PSA screening PSA Screening Lab Routine Screening for prostate cancer Expected: 01/08/2023 (Approximate), Expires: 01/08/2024 [facility] Comment on above: Expected: 01/08/2023 (Approximate), Expi res: 01/08/2024 Start: 01-08-2023 End: 01-08-2023 Patient encounter procedure 01/08/2023 Office Visit Family Medicine Phoebe Adam APRN - REGULATORY AFFAIRS INTERN [address] [place] [address] [facility] Start: 12-27-2022 End: 12-27-2022 Patient encounter procedure 12/27/2022 Office Visit Family Medicine Phoebe Adam APRN - REGULATORY AFFAIRS INTERN [address] [place] [address] [facility] Start: 12-22-2022 End: 12-22-2022 Patient encounter procedure 12/22/2022 Office Visit Orthopedic Surgery Tu Goetz MD [address] [facility] [address] [place] [address] [facility] Start: 12-22-2022 End: 12-07-2023 XR Foot - right 3 Views [facility] Work Phone: Comment on above: Expected: 12/22/2022, Expires: 4 Once for 1 Occurrenc es starting 12/22/2022 until 12/22/2022 Start: 12-22-2022 End: 12-22-2022 Documentation procedure 12/22/2022 Documentation Orthopedic Surgery [facility] Start: 12-22-2022 End: 12-22-2022 Professional / ancillary services management 12/22/2022 Ancillary Procedure Urgent Care Right foot pain [facility] Comment on above: Right foot pain Start: 12-08-2022 End: 12-08-2022 Patient encounter procedure 12/08/2022 Office Visit Orthopedic Surgery Tu Goetz MD [address] [facility] [address] [place] [address] [facility] Start: 12-08-2022 End: 12-08-2023 XR Foot - right 3 Views XR foot 3+ views right Imaging Routine Pain in right foot Expected: 12/08/2022, Expires: 12/08/2023 [facility] Work Phone: Comment on above: Expected: 12/08/2022, Expires: Start: 12-08-2022 End: 12-08-2022 Documentation procedure 12/08/2022 Documentation Orthopedic Surgery [facility] Start: 12-07-2022 Urine screening for protein Diabetes: Urine Protein Screening [facility] Start: 08-09-2022 Hemoglobin A1c measurement Diabetes: Hemoglobin A1C [facility] Start: 07-20-2022 Influenza vaccination Influenza Vaccine (#1) [facility] Start: 06-22-2022 Creatinine measurement Creatinine monitoring [facility] Work Phone: Start: 06-22-2022 Diabetic microalbuminuria test Diabetic microalbuminuria test [employer] Work Phone: Start: 06-22-2022 Hemoglobin A1c measurement A1C test (Diabetic or Prediabetic) [employer] Work Phone: Start: 06-22-2022 Lipid panel [facility] Start: 06-22-2022 Pneumococcal 0-64 years Vaccine (1 of 2 - PPSV23) Pneumococcal 0-64 years Vaccine (1 of 2 - PPSV23) [employer] [facility] Work Phone: Comment on above: Postponed from 1983 (Patient Refus ed) Start: 06-22-2022 Potassium monitoring Potassium monitoring [employer] Work Phone: Start: 06-21-2022 HIV screening HIV screen [employer] Work Phone: Comment on above: Postponed from 1992 (Patient Refus ed) Start: 11-23-2021 Hepatitis C screening Hepatitis C screen [employer] [facility] Work Phone: Comment on above: Postponed from 1977 (Patient Refus ed) Start: 11-15-2021 Creatinine measurement Creatinine monitoring [facility] [place] Start: 11-15-2021 Potassium monitoring Potassium monitoring [facility] [place] Start: 09-23-2021 End: 09-23-2021 Patient encounter procedure 09/23/2021 Office Visit Family Medicine Phoebe Adam APRN - [facility] [address] [place] [address] [phone] [facility] Start: 09-21-2021 End: 09-21-2021 Patient encounter procedure 09/21/2021 Office Visit Family Medicine Phoebe Adam APRN - [facility] [address] [place] [address] [phone] [facility] Start: 07-20-2021 Influenza vaccination Flu vaccine (#1) [facility] Work Phone: Start: 12-12-2020 Creatinine measurement Creatinine monitoring [place], [place] Start: 12-12-2020 Diabetic foot examination Diabetic foot exam [place], [place] Start: 12-12-2020 Diabetic microalbuminuria test Diabetic microalbuminuria test [place] Start: 12-12-2020 DTaP/Tdap/Td vaccine (1 - Tdap) DTaP/Tdap/Td vaccine (1 - Tdap) [place] Comment on above: Postponed from 1996 (Patient Refus ed) Start: 12-12-2020 HbA1c (Bld) [Mass fraction] A1C test (Diabetic or Prediabetic) [place] Start: 12-12-2020 Hepatitis B vaccine (1 of 3 - Risk 3-dose series) Hepatitis B vaccine (1 of 3 - Risk 3-dose series) [place] Comment on above: Postponed from 1996 (Patient Refus ed) Start: 12-12-2020 HIV screening HIV screen [place], [place] Comment on above: Postponed from 1992 (Patient Refus ed) Start: 12-12-2020 Influenza vaccination Flu vaccine (Season Ended) [place] Comment on above: Postponed from 07/20/2020 (Patient Refus ed) Start: 12-12-2020 Lipid panel Lipid screen [place] Start: 12-12-2020 Pneumococcal 0-64 years Vaccine (1 of 1 - PPSV23) Pneumococcal 0-64 years Vaccine (1 of 1 - PPSV23) [place] Comment on above: Postponed from 1983 (Patient Refus ed) Start: 12-12-2020 Potassium monitoring Potassium monitoring [place] Start: 05-25-2020 End: 05-25-2020 Office Visit 05/25/2020 Office Visit Family Medicine Artie Jackson MD [address] [place] [address], [place] [address] [phone] [facility] Start: 1996 Hepatitis A Vaccines (1 of 2 - Risk 2-dose series) Hepatitis A Vaccines (1 of 2 - Risk 2-dose series) [facility] Start: 1996 Hepatitis B vaccine (1 of 3 - Risk 3-dose series) Hepatitis B vaccine (1 of 3 - Risk 3-dose series) [facility] [facility] Work Phone: Start: 1995 Hepatitis C screening Hepatitis C Screening [facility] Start: 1989 COVID-19 Vaccine (1) COVID-19 Vaccine (1) [facility] Work Phone: Start: 1987 Diabetic foot examination Diabetes: Foot Exam [facility] Start: 1987 Diabetic retinal exam Diabetic retinal exam [place], [place] Start: 1987 Glaucoma screening Diabetes: Retinopathy Screening [facility] Start: 1987 Preventive dental service Diabetes: Dental Exam [facility] Start: 1983 Pneumococcal Vaccine: Pediatrics (0 to 5 Years) and At-Risk Patients (6 to 64 Years) (1 - PCV) Pneumococcal Vaccine: Pediatrics (0 to 5 Years) and At-Risk Patients (6 to 64 Years) (1 - PCV) [facility] Start: 1983 Pneumococcal Vaccine: Pediatrics (0 to 5 Years) and At-Risk Patients (6 to 64 Years) (1 of 2 - PCV) Pneumococcal Vaccine: Pediatrics (0 to 5 Years) and At-Risk Patients (6 to 64 Years) (1 of 2 - PCV) [facility] Start: 1978 MMR Vaccines (1 of 1 - Standard series) MMR Vaccines (1 of 1 - Standard series) [facility] Start: 1977 COVID-19 Vaccine (#1) COVID-19 Vaccine (#1) [facility] Start: 1977 Echocardiography Echocardiogram [facility] Start: 1977 Hepatitis B Vaccines (1 of 3 - 3-dose series) Hepatitis B Vaccines (1 of 3 - 3-dose series) [facility] Start: 1977 Hepatitis C screening Hepatitis C screen [place], [place] Start: 1977 HIV screening HIV Screening [facility] Start: 1977 Screening for malignant neoplasm of colon [facility] Aerobic and Anaerobi c Culture with Stain [facility] Work Phone: Comment on above: Ordered: 01/22/2025 End: 05-14-2020 Blood glucose - POCT Blood glucose - POCT Point of Care Testing STAT One Time for 1 Occurrences starting 05/14/2020 until 05[facility]14[facility] above: One Time for 1 Occurrences starting 04/20 until 05/14/2020 End: 11-15-2020 Blood glucose - POCT Blood glucose - POCT Point of Care Testing STAT One Time for 1 Occurrences starting 11/15/2020 until 11/15/2020 [facility] Comment on above: One Time for 1 Occurrences starting 10/20 until 11/15/2020 Incentive spirometry Incentive s pirometry Respiratory Care Routine Q1H PRN until discontinued starting 05/14/2020 [facility] Comment on above: Q1H PRN until discontinued starting 04/20 Initiate Oxygen Ther apy Protocol Initiate Oxygen Therapy Protocol Respiratory Care Routine Daily until discontinued starting 05/14/2020 [facility] Comment on above: Daily until discontinued starting 2019 Phase I & II - meter ed glucose [facility] Comment on above: As Needed until discontinued starting As Needed until disc ontinued starting 11/15/2020 End: 05-14-2020 Pulse Oximetry Spot Check Pulse Oximetry Spot Check Respiratory Care Routine One Time for 1 Occurrences starting 05/14/2020 until 05/14/2020 [facility] Comment on above: One Time for 1 Occurrences starting 04/20 until 05/14/2020 End: 11-09-2020 XR FOOT RIGHT (MIN 3 VIEWS) XR FOOT RIGHT (MIN 3 VIEWS) Imaging Routine Once for 1 Occurrences starting 11/09/2020 until 11/09/2020 [facility] Comment on above: Once for 1 Occurrences starting 11/09/20 20 until 11/09/2020 XR FOOT RIGHT (MIN 3 VIEWS) XR FOOT RIGHT (MIN 3 VIEWS) Imaging Routine 11/09/2020 8:57 AM EST [place], [place] Immunizations Immunization Date Immunization Notes Care Provider [facility] 05-07-2024 tuberculin skin test ; purified protein derivative solution, intradermal Shreya Bert DIRECTOR OF OPERATIONS - REGULATORY AFFAIRS INTERN Work Phone: [facility] 07-20-2020 influenza virus vaccine, unspecified formulation Shashank Finch [facility] 08-17-2018 tetanus toxoid, redu araceli diphtheria toxoid, and acellular pertussis vaccine, adsorbed; Translations: [Boostrix (Tdap)] LATRELL MENDIOLA DO [facility] 1976 measles, mumps and rubella virus vaccine Sania BORREGO Work Phone: [facility] 1976 measles/mumps/rubell a virus vaccine [employer] DIRECTOR OF OPERATIONS-REGULATORY AFFAIRS INTERN [facility] Payers Date Payer Category Payer Self-pay 2022 [employer] Managed Care - O ANTH BLUE CROSS [id number] 2022 Medicaid O [facility] MEDICAID OD [id number] 2022 Unknown [id number] [id number]. [id number] 2022 Unknown [id number] 2021 Unknown [employer] AGE PAR[employer] ADVANTAGE [id number] 2021-Present [phone] [address] [place] [address] [id number]. [id number] 2021 Medicaid [id number] 2019 Unknown [employer] ADVANT AGE PAR[employer] ADVANTAGE xxxxxxxxxxx 2019-Present [phone] [address] [place] [address] xxxxxxxxxxx [id number]. [id number] 2019 Unknown PAR[employer]OUNT ADVANT AGE [employer] ADVANTAGE [id number] 2019-Present [phone] [address] [place] [address] [id number]. [id number] 1977 Unknown [id number] 1977 Unknown [id number] 840.1.349219.3.579.2 1977 Unknown [id number] .840.1.134873.3.579.2 1977 Unknown [id number] .840.1.002180.3.579.2 1977 Unknown [id number] 840.1.932698.3.579.2 1977 Unknown [id number] 2.16.840.1.464634.3.579.2. 627 1977 Unknown [id number] 2..840.1.239051.3.579.2. 627 1977 Unknown [id number] 2.16.840.1.955909.3.579.2. 62 1977 Unknown [id number] 2.840.1.501569.3.579.2. 62 1977 Unknown [id number] 2.840.1.032948.3.579.2. 1977 Unknown [id number] 2.840.1.738208.3.579.2. 627 Unknown [id number] 2.840.1.886970.3.579.2. 462 Unknown [id number] 2.840.1.916760.3.579.2. 462 Unknown [id number] 2.840.1.749984.3.579.2. 462 Unknown [id number] 2.840.1.755732.3.579.2. 462 Unknown [id number] 2.840.1.789795.3.579.2. 462 Unknown [id number] 2.16840.1.414671.3.579.2. 462 Unknown [id number] 2.840.1.682012.3.579.2. 462 Unknown [id number] 2.840.1.592126.3.579.2. 462 Unknown [id number] 2.840.1.101612.3.579.2. 462 Unknown [id number] 2.840.1.665479.3.579.2. 462 Unknown [id number] 2.840.1.549232.3.579.2. 462 Social History Date Type Detail Facility Start: 12-12-1989 End: 09-22-2024 Tobacco smoking status NHIS Current every day smoker [place], [place] Start: 12-12-1989 History of tobacco use Cigarette Smo ker [place] Start: 05-14-2020 End: 09-20-2024 Cigarettes smoked current (pack per day) - Reported [place] History of tobacco use Snuff User [place] Start: 05-14-2020 End: 06-16-2025 Alcohol intake Current drinker of alcohol (finding) [place] Start: 12-12-2019 History SDOH Physica l Activity DPW 0 [place] Start: 12-12-2019 History SDOH Financial 4 [place] Start: 12-12-2019 End: 05-26-2021 History SDOH Food Worry 1 [place], [place] Start: 12-12-2019 End: 05-26-2021 History SDOH Transport Med 2 [place] Start: 05-14-2020 Alcohol Comment seldom [place], [place] Start: 1975 Sex Assigned At Not on file [place] Exposure to SARS-CoV -2 (event) Unable to assess [place] Start: 11-15-2020 End: 09-22-2024 Tobacco use and exposure Current user [place], [place] Start: 12-12-2022 End: 07-03-2023 Exposure to SARS-CoV-2 (event) Not sure [place], [place] Start: 04-30-2019 Heavy tobacco smoker (finding) [facility] Sex Assigned At [facility] Start: 05-26-2021 History SDOH Financial 5 [facility] Work Phone: Start: 01-08-2023 End: 09-20-2024 Tobacco use panel [facility] Start: 01-24-2024 Alcohol intake Lifetime non-d ibll (finding) [facility] Start: 02-15-2024 Alcohol Comment Occasional [facility] Start: 08-29-2015 End: 06-19-2022 Sex Male (finding) [facility] How often do you nee d to have someone help you when you read instructions, pamphlets, or other written material from your doctor or pharmacy [SILS] Never [facility] Do you belong to any clubs or organizations such as sikh groups, unions, fraternal or athletic groups, or school groups? No [facility] Are you now , , , , never or living with a partner? Living with partner [facility] Do you feel stress - tense, restless, nervous, or anxious, or unable to sleep at night because your mind is troubled all the time - these days [OSQ] Not at all [facility] (I/We) worried wheth er (my/our) food would run out before (I/we) got money to buy more. Never true [facility] How often do you nee d to have someone help you when you read instructions, pamphlets, or other written material from your doctor or pharmacy [SILS] Never [facility] Medical Equipment Procedure Code Equipment Code Equipment Origin al Text Equipment Identifier Dates 1 each by In Vit ro route 2 times daily As needed. [id number] Start: 03-12-2020 1 each by Does n ot apply route 2 times daily Please dispense lancets to match the true metrix meter given. [id number] Start: 03-12-2020 TEST BLOOD SUGAR twice a day as directed [id number] Start: 10-11-2020 TRUE METRIX GLUC OSE TEST STRIP Start: 09-19-2020 TRUEPLUS 33G LANCETS Star t: 09-19-2020 Test blood sugar twice a day [id number] Start: 06-22-2021 TEST BLOOD SUGAR twice a day as directed [id number] Start: 04-19-2021 TRUE METRIX GLUC OSE TEST STRIP Start: 09-19-2020 TRUEPLUS 33G LANCETS Star t: 09-19-2020 use daily as directed [id number] Start: 05-24-2022 use 1 TEST STRIP to TEST BLOOD SUGAR twice a day [id number] Start: 01-08-2023 End: 04-20-2023 use 1 TEST STRIP to TEST BLOOD SUGAR twice a day [id number] Start: 04-20-2023 End: 07-27-2023 TRUE METRIX GLUC OSE TEST STRIP, 0 Refill(s), 130 Start: 09-19-2020 TRUEPLUS 33G LANCETS, 0 Refill(s), 130 Start: 09-19-2020 TEST twice a day as directed [id number] Start: 07-27-2023 Inject 100 each under the skin daily. As directed [id number] Start: 08-13-2023 End: 06-18-2025 use 1 TEST STRIP to TEST BLOOD SUGAR twice a day [id number] Start: 11-05-2023 End: 02-18-2024 use 1 TEST STRIP to TEST BLOOD SUGAR twice a day [id number] Start: 02-18-2024 TRUE METRIX GLUC OSE TEST STRIP, 0 Refill(s), 130 Start: 09-19-2020 TRUEPLUS 33G LANCETS, 0 Refill(s), 130 Start: 09-19-2020 use 1 TEST STRIP to TEST BLOOD SUGAR twice a day [id number] Start: 03-31-2024 TRUE METRIX GLUC OSE TEST STRIP, 0 Refill(s), 130 Start: 09-19-2020 TRUEPLUS 33G LANCETS, 0 Refill(s), 130 Start: 09-19-2020 use 1 TEST STRIP to TEST BLOOD SUGAR twice a day [id number] Start: 10-02-2022 End: 01-08-2023 use 1 TEST STRIP to TEST BLOOD SUGAR twice a day [id number] Start: 11-06-2024 End: 06-16-2025 use 1 TEST STRIP to TEST BLOOD SUGAR twice a day [id number] Start: 06-16-2025 Inject 1 each un enrrique the skin 3 times daily. As directed [id number] Start: 06-18-2025 Goals Date Patient Goal Desired [...] Facility 02-15-2025 Functional Status Room check performed [facility] 02-15-2025 Functional Status Done [place] [facility] 02-15-2025 Functional Status [place] [facility] 02-15-2025 Functional Status 100 [place] [facility] 02-15-2025 Functional Status [place] [facility] 02-15-2025 Functional Status [place] [facility] 02-15-2025 Functional Status Activity Assistance Two assist [facility] 02-15-2025 Functional Status [place] [facility] 02-14-2025 Functional Status bilateral knee high artemio lied/on [facility] 02-14-2025 Functional Status [place] [facility] 02-14-2025 Functional Status [place] [facility] 02-14-2025 Functional Status 7am-7pm [place] [facility] 02-14-2025 Functional Status [place] [facility] 02-14-2025 Functional Status [place] [facility] 02-13-2025 Functional Status [place] [facility] 02-13-2025 Functional Status Hospital bed [place] [facility] 02-12-2025 Functional Status Independent [place] [facility] 02-12-2025 Functional Status Dinner Percent 100 [facility] 02-12-2025 Functional Status [place] [facility] 02-12-2025 Functional Status [place] [facility] 02-11-2025 Functional Status heel(s)s eleva smita, padded oxygen tubing, turn and position system [facility] 02-11-2025 Functional Status Living Situati on Home independently, Lives with significant other [facility] 02-11-2025 Functional Status [place] [facility] 02-11-2025 Functional Status [place] [facility] 02-11-2025 Functional Status Mod I [place] [facility] 02-11-2025 Functional Status [place] [facility] 02-11-2025 Functional Status [facility] 02-10-20[facility] Functional Status [place] [facility] 02-10-2025 [facility] 06-30[facility] Functional Status Other: 7AM to D/c [facility] 06-30-2024 Functional Status Identified as high risk, Room check performed [facility] 06-30-2024 Functional Status Refused [place] [facility] 06-30-2024 Functional Status [place] [facility] 06-30-2024 Functional Status [place] [facility] 06-29-2024 Functional Status [place] [facility] 06-29-2024 Functional Status [place] [facility] 06-29-2024 Functional Status Refused to be up in chair, Encouraged/reinforced importance of being up in chair [facility] 06-29-2024 Functional Status [place] [facility] 06-29-2024 Functional Status [place] [facility] 06-29-2024 Functional Status [place] [facility] 06-28-2024 Functional Status [place] [facility] 06-28-2024 Functional Status [place] [facility] 06-28-2024 [facility]-28[facility]-27[facility] Functional Status NPO Status Maintained [facility] 06-27-2024 Functional [facility] 06-26-[facility] Functional Status Sequential Com pression Device bilateral knee high removed/off [facility] 06-26-2024 [facility] 06-26[facility] 06-26[facility] 06-25-[facility]24 Functional Status Therapy recomm end pt. go to SNF following admission in February, but pt. refused and left AMA (04/29/24) [facility] 06-24-2024 Functional Status [place] [facility] 06-23-2024 Functional Status [place] [facility] 06-23-2024 Functional Status [place] [facility] 06-23-2024 Functional Status [place] [facility] 06-23-2024 Functional Status [place] [facility] 06-23-2024 Functional Status Assistive Equi pment elevated on pillows [facility] 06-22-2024 [facility] 06-22-[facility] Functional Status [place] [facility] 06-22-2024 Functional Status [facility] 06-21-2024 Functional Status [facility] 06-21-2024 Functional Status Ambulation Encouraged/reinforced importance of ambulation [facility] 06-20-2024 Functional Status heel(s)s elevated [facility] 06-20-2024 Functional Status [facility] 06-18-2024 Functional Status Sensory Deficits None [facility] 06-06-2024 Functional Status Maximum assistance [facility] 06-06-2024 Functional Status Awake [place] [facility] 05-15-2024 Functional Status Min A [place] 05-15-2024 Functional Status [facility] 05-14-2024 Functional Status [facility] 05-14-2024 Functional Status [facility] 05-14-2024 Functional Status [facility] 05-14-2024 Functional Status Foam dressing [facility] 05-14-2024 Functional Status [facility] 05-14-2024 Functional Status [facility] 05-14-2024 Functional Status [facility] 05-13-2024 Functional Status [place] [facility] 05-13-2024 Functional Status [place] [facility] 05-12-2024 Functional Status [place] [facility] 05-11-2024 [facility] Functional Status Evening Snack Percent 1 00 [facility] 05-10-2024 Functional Status Dinner Percent 100 [facility] 05-09-2024 Functional Status [place] [facility] 05-09-2024 Functional Status [place] [facility] 05-09-2024 Functional Status Therapy recomm end pt. go to SNF following admission in February, but pt. refused and left AMA (04/29/24) [facility] 05-08-2024 Functional Status Repositions self [facility] 05-08-2024 [facility] Functional Status High Risk Safe ty Identified as high risk, Room located near nursing station [facility] 05-07-2024 Functional Status [place] [facility] 05-07-2024 Functional Status Environmental Safety Implemented Adequate room lighting, Bed in low position, Call device within reach, Other: meal tray offered and declined [facility] 05-07-2024 [facility] Functional Status Room check performed [facility] 05-06-2024 Functional Status Repositioned back [facility] 05-06-2024 Functional Status [place] 05-06-2024 Functional Status [facility] 05-06-2024 Functional Status Done [facility] 05-06-2024 Functional Status [facility] 05-06-2024 Functional Status [facility] 05-06-2024 Functional Status [facility] 05-06-2024 Functional Status [facility] 05-05-2024 Functional Status [facility] 05-05-2024 Functional Status Patient Identi fied Identification band [facility] 05-05-2024 Functional Status NPO Status Maintained [facility] 05-05-2024 Functional Status [facility] 05-05-2024 Functional Status [place] 05-05-2024 Functional Status [place] [facility] 05-04-2024 Functional Status Dinner Percent 100 [facility] 05-04-2024 Functional Status [place] [facility] 05-03-2024 Functional Status 100 [place] [facility] 05-03-2024 Functional Status [place] 05-03-2024 Functional Status 100 [place] 05-03-2024 Functional Status [facility] 05-02-2024 Functional Status [place] [facility] 05-02-2024 Functional Status [facility] 05-02-2024 Functional Status Mod A [place] [facility] 05-01-2024 Functional Status [place] 04-30-2024 Functional Status Lunch Percent 70 [facility] 04-30-2024 Functional Status 50 [place] [facility] 04-29-2024 [facility] 04-29-[facility]24 Functional Status Therapy recomm end pt. go to SNF following admission in February, but pt. refused and left AMA (04/29/24) [facility] 04-29-2024 Functional Status [place] [facility] 04-28-2024 Functional Status [place] [facility] 04-27-2024 Functional Status [facility] 04-27-2024 [facility] 04-26-2024 [facility] 04-25-2024 Functional Status Mobility Donnie tance Level Maximum assistance [facility] 04-24-2024 Functional Status [facility] 04-22-2024 Functional Status Sensory Deficits None A [facility] 04-20-2024 Functional Status Special Call D evice Unable to use call device [facility] 04-20-2024 Functional Status [facility] 04-20-2024 Functional Status [facility] 04-19-2024 Functional Status Pre-restraint Alternatives Attempted Enhanced observation, Positioning/Turning, Reality orientation, Intervention attempted, not successful [facility] 04-16-2024 Functional Status [facility] 04-06-2024 Functional Status Independent [facility] 04-06-2024 Functional Status Standard Safet y ID band on, Allergy Band on, Call device within reach, Bed in low position, Wheels locked, Upper/Half-Length side-rails up, Bedside Cart Locked, Safety level maintained [facility] 03-11-2024 Functional Status Nurse Safety C madison q2hrs Performed 7am-3pm [facility] 03-11-2024 Functional Status bilateral knee high rem woo/off [facility] 03-11-2024 Functional Status [facility] 03-11-2024 Functional Status Supervised [facility] 03-11-2024 Functional Status [facility] 03-11-2024 Functional Status Door open, Room check performed [facility] 03-11-2024 Functional Status [facility] 03-10-2024 Functional Status [facility] 03[facility]10-[facility]24 Functional Status [facility] 03-10-2024 Functional Status Single level home [facility] 03-10-2024 Functional Status [facility] 03-10-2024 Functional Status [place] [facility] 03-10-2024 Functional Status [facility] 03-10-2024 Functional Status [facility] 03-09-2024 Functional Status [place] [facility] 03-09-2024 Functional Status Total [facility] 03-08-2024 Functional Status [place] [facility] 03-08-2024 Functional Status Sensory Deficits None [facility] 07-07-2023 Functional Status Independent [place] [facility] 07-07-2023 Functional Status Standard Safet y ID band on, Call device within reach, Bed in low position, Wheels locked, Visitor at bedside, Safety level maintained [facility] Mental Status Date Assessment Result Facility 02-15[facility]2025 [facility] Status [facility] 02-14-2025 Mental Status [facility] 02-13-2025 Mental Status [facility] 02-13-2025 Mental Status [facility] 06-30-2024 Mental Status [facility] 06-29-[facility]24 Mental Status [facility] 06-06-2024 Mental Status Oriented x 4 [facility] 06-06-2024 Mental Status [facility] 05-15-2024 Mental Status [facility] 05-15-[facility]24 Mental Status [facility] 05-07-2024 Mental Status Orientation Oriented x 4 [facility] 05-07-2024 Mental Status [facility] 05-07-2024 Mental Status [place] [facility] 05-06-2024 Mental Status Oriented x 4 [facility] 05-06-2024 Mental Status [facility] 05-06-2024 Mental Status [facility] 04-06-2024 Mental Status Orientation Oriented x 4 [facility] 04-06-2024 Mental Status [facility] 03-11-2024 Mental Status Oriented x 4 [facility] 03-10-2024 Mental Status [facility] 03-10-2024 Mental Status [facility] 03-09-2024 Mental Status [facility] 07-07-2023 Mental Status Orientation Oriented x 4 [facility] 07-07-2023 Mental Status [facility] Clinical Notes 09-02-2021 to 07-13-2025 Telephone Encounter - MOIRA Samuels CNP - 07/13/2025 10:18 AM EDTTelephone Encounter - MOIRA Samuels CNP - 07/13/2025 10:18 AM EDTMnain Hankins - 06/16/2025 1:20 PM EDT Note Date & Type Note Facility 07-13-2025 Telephone encounter Note Reviewed chart. Refill not appropriate, too soon. RX refused [facility] 07-13-2025 Miscellaneous Notes Reviewed chart. Refill not appropriate, too soon. RX refused Acetaminophen sent in 07/09/25 60 tablets 3 refills Hysralazine sent 06/16/25 270 tablets Please refuse both meds documented in this encounter [facility] 07-13-2025 Telephone encounter Note Reviewed chart. Refill not appropriate, too soon. RX refused [facility] 07-13-2025 Miscellaneous Notes Reviewed chart. Refill not appropriate, too soon. RX refused Sent 02/17/25 90 and 1 refill Pt should still have 30 days of medication left Please refuse mediction documented in this encounter [facility] 07-13-2025 Telephone encounter Note Sent 02/17/25 90 and 1 refill Pt should still have 30 days of medication left Please refuse mediction [facility] 07-13-2025 Telephone encounter Note Acetaminophen sent in 07/09/25 60 tablets 3 refills Hysralazine sent 06/16/25 270 tablets Please refuse both meds [facility] 07-09-2025 Telephone encounter Note Prescription Request: Last medication check: 06/16/25 Last physical exam: 2020 Next scheduled appointment: 09/15/25 Last date of refill on this medication 06/12/25 60 tablets no refill [facility] 07-09-2025 Miscellaneous Notes Prescription Request: Last medication check: 06/16/25 Last physical exam: 2020 Next scheduled appointment: 09/15/25 Last date of refill on this medication 06/12/25 60 tablets no refill documented in this encounter [facility] 06-18-2025 Telephone encounter Note Spoke with pharmacy Please send in new RX for the Quik Pen. Pended new rx please verify correct order/dose. Also pended pen tips. [facility] 06-18-2025 Miscellaneous Notes Spoke with pharmacy Please send in new RX for the Quik Pen. Pended new rx please verify correct order/dose. Also pended pen tips. The pen Name of caller: [facility] Contact phone number: [phone] Relationship to Patient: Pharmacy Provider: Practice: [facility] [...] their call: no documented in this encounter [facility] 06-16-2025 Evaluation + Plan note Associated Problem(s): Open wound of skin Recommend continue to monitor. Warm compresses couple times a day to promote drainage. Advised to follow-up if increased swelling or redness or pain occurs. [facility] 06-16-2025 Miscellaneous Notes Associated Problem(s): Open wound of skin Recommend continue to monitor. Warm compresses couple times a day to promote drainage. Advised to follow-up if increased swelling or redness or pain occurs. Associated Problem(s): Type 2 diabetes mellitus with diabetic polyneuropathy, with long-term current use of insulin ([facility]) Poorly controlled. Check hemoglobin A1c today. Restart [...] 25 mg daily documented in this encounter [facility] 06-16-2025 Evaluation + Plan note Associated Problem(s): Type 2 diabetes mellitus with diabetic polyneuropathy, with long-term current use of insulin (HCC) Poorly controlled. Check hemoglobin A1c today. Restart Lantus at 10 units daily, Humalog 5 units with meals 3 times a day. Send glucose readings every 3 days for titration of insulin [facility] 06-16-2025 Evaluation + Plan note Associated Problem(s): Cardiomyopathy (HCC) Stable. Restart metoprolol XL at 25 mg daily [facility] 06-16-2025 Evaluation + Plan note Associated Problem(s): End-stage renal disease on hemodialysis (HCC) Managed by nephrology. [facility] 06-16-2025 Evaluation + Plan note Associated Problem(s): 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) Control unknown. Check hemoglobin A1c. [facility] 06-16-2025 Evaluation + Plan note Associated Problem(s): Essential hypertension Initial elevated. Resume hydralazine 50 mg 3 times daily, metoprolol 25 mg XL daily. Hold hydralazine on days of dialysis [facility] 06-16-2025 Evaluation + Plan note Associated Problem(s): Hyperlipidemia LDL goal <70 Continue fenofibrate 145 mg daily, rosuvastatin 10 mg daily. [facility] 06-16-2025 Evaluation + Plan note Associated Problem(s): Paroxysmal atrial fibrillation (HCC) Restart Eliquis, start back on the metoprolol XR at 25 mg daily [facility] 06-16-2025 Telephone encounter Note The pen [facility] 06-16-2025 Telephone encounter Note Name of caller: [facility] Contact phone number: [phone] Relationship to Patient: Pharmacy Provider: Practice: [facility] [...] business hours to return their call: no [facility] 06-16-2025 History of Presen t illness Narrative [...] polyneuropathy, with long-term current use of insulin ([facility]) Assessment & Plan: Poorly controlled. Check hemoglobin [...] Normal 2. Chronic renal disease, stage IV ([facility]) Assessment & Plan: Managed by nephrology. Orders: - Basic metabolic panel 3. Low hemoglobin - CBC auto differential 4. Cardiomyopathy, unspecified type ([facility]) Assessment & Plan: Stable. Restart metoprolol XL [...] 5. Diabetes mellitus with proteinuria (CMS/HCC) (HCC) ([facility]) Assessment & Plan: Control unknown. Check hemoglobin [...] 10 mg daily. 8. Paroxysmal atrial fibrillation ([facility]) Assessment & Plan: Restart Eliquis, start back [...] pain occurs. [facility] SUBJECTIVE/OBJECTIVE: HPI - Gurinder Hahn (: 1975) [...] a CGM up until recently, needs to pickle sorter his new sensors. Reports his sugars have been in the high 200s and denies any hypoglycemic episodes. It drinking more water and trying to watch what he is eating. M,W,F- dialysis in [place]. Is tired after dialysis Goes Jun 23 [...] authenticate this note. Shreya Olivera, MOIRA - REGULATORY AFFAIRS INTERN 06/16/2025 5:30 PM [1] Current Outpatient Medications [...] cover report 30 each 1 Continuous Glucose Sustainable Development Policy Analyst (FreeStyle Yanni 3 Voca) device Use as directed 1 each 0 [...] for this visit. documented in this encounter [facility] 06-16-2025 Instructions MOIRA Samuels CNP - 06/16/2025 1:20 PM EDT We can make adjustments to insulin every 3 days. Please send in fasting and 2 hour post meal glucose readings every 3 days. documented in this encounter [facility] 06-12-2025 Telephone encounter Note Reviewed chart. Refill appropriate. RX sent. [facility] 06-12-2025 Telephone encounter Note Reviewed chart. Refill appropriate. RX sent. [facility] 06-12-2025 Miscellaneous Notes Reviewed chart. Refill appropriate. RX sent. Prescription Request: Last medication check: 09/22/24 Last physical exam: 2020 Next scheduled appointment: 06/16/25 Last date of refill on this medication 05/21/25 60 tablets no refills documented in this encounter [facility] 06-12-2025 Miscellaneous Notes Reviewed chart. Refill appropriate. RX sent. Prescription Request: Last medication check: 09/22/24 Last physical exam: 2020 Next scheduled appointment: 06/16/25 Last date of refill on this medication 01/29/25 30 tablets 3 refills documented in this encounter [facility] 06-12-2025 Telephone encounter Note Prescription Request: Last medication check: 09/22/24 Last physical exam: 2020 Next scheduled appointment: 06/16/25 Last date of refill on this medication 05/21/25 60 tablets no refills [facility] 06-12-2025 Telephone encounter Note Prescription Request: Last medication check: 09/22/24 Last physical exam: 2020 Next scheduled appointment: 06/16/25 Last date of refill on this medication 01/29/25 30 tablets 3 refills [facility] 05-21-2025 Telephone encounter Note Reviewed chart. Refill appropriate. RX sent. [facility] 05-21-2025 Miscellaneous Notes Reviewed chart. Refill appropriate. RX sent. Prescription Request: Last medication check: 09/22/24 Last physical exam: 01/08/23 Next scheduled appointment: 06/08/25 Last date of refill on this medication 04/16/25 60 tablets no refills documented in this encounter [facility] 05-21-2025 Telephone encounter Note Prescription Request: Last medication check: 09/22/24 Last physical exam: 01/08/23 Next scheduled appointment: 06/08/25 Last date of refill on this medication 04/16/25 60 tablets no refills [facility] 04-28-2025 Telephone encounter Note Prescription Request: Continuous Glucose Sensor (FreeStyle Yanni 3 Sensor) mis Last medication check: none Last physical exam: none Next scheduled appointment: 05/13/25 Last date of refill on this medication 11/10/24 ( qty 2 refill 5) [facility] 04-28-2025 Miscellaneous Notes Prescription Request: Continuous Glucose Sensor (FreeStyle Yanni 3 Sensor) mis Last medication check: none Last physical exam: none Next scheduled appointment: 05/13/25 Last date of refill on this medication 11/10/24 ( qty 2 refill 5) documented in this encounter [facility] 04-16-2025 Telephone encounter Note Prescription Request: Last medication check: 09/22/24 Last physical exam: none Next scheduled appointment: 05/13/25 Last date of refill on this medication 02/17/25 60 tablets no refill [facility] 04-16-2025 Miscellaneous Notes Prescription Request: Last medication check: 09/22/24 Last physical exam: none Next scheduled appointment: 05/13/25 Last date of refill on this medication 02/17/25 60 tablets no refill documented in this encounter [facility] 02-15-2025 Discharge summary Date of Service 02/15/2025 [...] use Hospital Course This is a 49-year-old Greek-speaking male with a known history of chronic [...] Bactrim, who presented as a transfer from [facility] with lower extremity weakness and [...] versus infectious process. Patient was brought to [facility] admitted to MICU. Dialysis catheter was [...] session to occur tomorrow morning 02/16/2025 at [facility] in [place]. Patient had a delay in his discharge [...] Up Follow Up with [facility]U [facility]TON [facility] When:In 3 weeks Where:[address] [facility] [address] [place] [address] [phone] Additional Information: Schedule appointment as soon as possible Follow Up with CORAL CARY MD When:Within 1-2 days Where:[address] [facility] [place] [address]- [phone] Additional Information: Schedule appointment as soon as possible Follow Up with YAMILET LEE MD When:In 4 weeks Where:[address] [facility] [address] [facility] [place] [address]- [phone] Additional Information: Schedule appointment as soon as possible Follow Up with Nikita Garcia When:Within 1-2 days Additional Information: Your hemodialysis schedule is Mondays, Sunday and Fridays at 12pm. You will need to arrive 30 minutes early for your first treatment. First treatment will be SundayFebruary 16. Follow Up with PHOEBE ADAM APRN-FOUNDER / CEO When:Within 1-2 days Where:[address] [place] [address]- Additional Information: Please call the office to [...] ORALIA SAMUELS MD on 02/15/2025 05:44 PM [facility] 02-15-2025 Note Discharge Instructions Thank you for allowing [facility] to assist you with your healthcare needs. [...] [address] [facility] [place] [address]- [phone] Additional Information: Schedule appointment as soon as possible Follow Up with YAMILET LEE MD When:In 4 weeks Where:[address] [facility] [place] [address] [phone] Additional Information: Schedule appointment as soon as possible Follow Up with Nikita Garcia When:Within 1-2 days Additional Information: Your hemodialysis schedule is Mondays, Sunday and Fridays at 12pm. You will need to arrive 30 minutes early for your first treatment. First treatment will be SundayFebruary 16. Follow Up with PHOEBE ADAM When:Within 1-2 days Where:[address] [place] [address]- Additional Information: Please call the office to [...] by mouth Once a day Pickup at [facility]/pharmacy #[id number] New carvedilol (Coreg 25 mg oral tablet) 1 tab(s) by mouth Twice daily with meals Pickup at [facility]/pharmacy #[id number] New cloNIDine (cloNIDine 0.1 mg oral tablet) 1 tab(s) by mouth Two (2) times a day as needed for Blood pressure control Duration: 21 Days take if systolic BP >160 Pickup at [facility]/pharmacy #[id number] New hydrALAZINE (hydrALAZINE 50 mg oral tablet) 1 tab(s) by mouth Three (3) times a day Pickup at [facility]/pharmacy #[id number] Unchanged apixaban (Eliquis 5 mg oral tablet) [...] Two (2) times a day Pharmacy Information [facility]/pharmacy #[id number]: [address], [place] [phone] What How Much When Comments Stop Taking [...] care provider. This is important. Medicines Take svyw-wen-umxalvs and prescription medicines only as told by [...] 11/05/2006 Document Revised: 07/16/2019 Document Reviewed: 07/16/2019 SignaCert Patient Education 2020 PCN Technology. Dialysis Dialysis is a procedure that is [...] limit your fluid intake. A diet and nutrition director (dietitian) can help you make a meal [...] find more information National Kidney Foundation: www.kidney.org [place] Association of Kidney Patients: www.aakp.org [place] Kidney Fund: www.kidneyfund.org Summary During dialysis, wastes, [...] 01/26/2004 Document Revised: 03/23/2020 Document Reviewed: 01/01/2018 ElseCost Effective Data Patient Education 2020 PCN Technology. Additional Information VACCINATE! IT SAVES LIVES! Members of the community who have not yet received the COVID-19 vaccine and would like to receive it can visit one of [facility] vaccine clinics. There are many vaccine clinic locations within the [facility]. For locations and available times, please visit https://gettheshot.coronavirus.o neo.gov/. It is important to note that some COVID mobile vaccine clinics are held outdoors and may be canceled in rainy or stormy conditions. To learn more about pediatric vaccinations (ages 5-11), we invite you to visit the [facility] webpage. https://www.[facility].org/p ages/7890-Cvtgl-Poqijauskcf-Freq xpivjc-Qejkq-Xrngnxgjs.html To learn more about the COVID-19 vaccine, we invite you to visit the CDC website for a list of frequently asked questions.https://www.cdc.gov/co ronavirus/2019-ncov/vaccines/faq .html [facility] Patient Portal Access Instructions: Stay connected with your healthcare team and access your personal medical information anytime with the [facility] Patient Portal. Please follow the directions below to create your [employer] account: 1.Access the email account you provided upon registration to the hospital/physician office.2.Look for an invitation email from [facility].3.Open the email and access the invitation link: Accept Invitation to [employer].4.Fill in the required nguyen to create your account. To access your account, visit [email or web address]. Click the blue button labeled Access Patient [...] you will allow to register on the [facility] Patient Portal for access to your information. You can also access the [facility] Patient Portal on the [facility] artemio. Simply click on Patient Portal and then log into your account. If you would like to receive a full copy of your medical records, please contact the [facility] Medical Records Department by calling [phone], Sunday through Sunday between 8 a.m. and [...] Call your local pharmacy or go to http://bit.ly/4C4Mx6l to find one close to you.3.Make use of household items: Use cat litter or old coffee grounds to dispose medications if other options are not available. Mix your drugs with these household products, seal them in an airtight container and throw it into the garbage. Call [facility]: [phone] to be sure your drugs can be [...] aware that I should contact my doctor. 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 Outpatient follow-up with cardiology for further GDMT [...] the attending physician on service using the 'Pied Piper' dictation software. Please excuse any grammatical errors, [...] already has chair time for dialysis at [facility] in Sunday schedule. Digitally Signed by ORALIA SAMUELS MD on 02/14/2025 04:51 PM [facility] 02-14-2025 Note ORIGINAL PROCEDURE: Conversion of temporary to tunneled hemodialysis catheter with fluoroscopy BRAIDING OPERATOR: Ritika Curtis PA-C CLINICAL STATEMENT: Gene [...] Sign Date: 02/14/2025 2:29:00 PM Ordering Provider: [facility] 02-14-2025 Hospital Discharg e instructions [...] care provider. This is important. Medicines Take gklu-oui-fctgrfn and prescription medicines only as told by [...] 11/05/2006 Document Revised: 07/16/2019 Document Reviewed: 07/16/2019 SignaCert Patient Education 2020 Sign[employer]Cert Inc. 02/14/2025 11:54:37 Dialysis Dialysis Dialysis is [...] limit your fluid intake. A diet and nutrition director (dietitian) can help you make a meal [...] find more information National Kidney Foundation: www.kidney.org [place] Association of Kidney Patients: www.aakp.org [place] Kidney Fund: www.kidneyfund.org Summary During dialysis, wastes, [...] 01/26/2004 Document Revised: 03/23/2020 Document Reviewed: 01/01/2018 SignaCert Patient Education 2019 PCN Technology. Follow Up Care 02/09/2025 22:52:31 With:TU DUTTON MD, [facility] Address: [address] [facility] [address] [place] [address] [phone] When:Within 3 Week(s) Comments:Schedule appointment as soon as possible With:CORAL CARY MD Address: [address] [facility] [place] [address] [phone] When:1-2 days Comments:Schedule appointment as soon as possible With:YAMILET LEE MD Address: [address] [place] [address] [address] [facility] [place] [address] [phone] When:Within 4 Week(s) Comments:Schedule appointment as soon as possible With:Nikita Garcia Address:Unknown When:1-2 days Comments:Your hemodialysis schedule is Mondays, Sunday and Fridays at 12pm. You will need to arrive 30 minutes early for your first treatment. First treatment will be SundayFebruary 16. With:PHOEBE ADAM APRN-FOUNDER / CEO Address: [address] [place] [address]- When:1-2 days Comments:Please call the office to schedule a hospital follow up appointment. [facility] 02-14-2025 Nephrology Progress note Date [...] GABRIELA LOTT MD on 02/14/2025 01:26 PM [facility] 02-13-2025 Note Exam Date Time Procedure Performing Provider Status 02/13/25 3:20 PM IR Tunneled HD DAMARI GASTELUM MD; Auth (Verified) [id number] ORIGINAL PROCEDURE: Conversion of temporary to tunneled hemodialysis catheter with fluoroscopy BRAIDING OPERATOR: Ritika Curtis PA-C CLINICAL STATEMENT: Gene [...] Sign Date: 02/14/2025 2:29:00 PM Ordering Provider: [facility]03-28-2025 Note IR Procedure Record Summary Primary Physician: Finalized Date/Time: 02/13/25 15:20:07 Pt. Name: GURINDER HAHNO.B./Sex: 1975 Male Med Rec #: [id number] Physician: VIRIDIANA WILLIAM MD Financial #: [id number] Pt. Type: I Room/Bed: [facility]/A Admit/Disch: 02/10/25 01:15:00 - Institution: Allergies identified [...] OP Note - IR Signed By: RITIKA CUTRIS PA-C 02/13/25 15:11 Allergy Information- IR Entry [...] preop Nevaeh, Fierstos, Anny antibiotic order., R Microbiological Analyst, Schultheis, Alcohol based prep dry Elena Huerta [...] 1 Implant/Explant Implant Implant Description CATH HEMO-FLOW [id number] Wasted? No Lot Number [id number] [employer] medCOMP Size 14.5F x 28cm Expiration Date [...] Radiology - Action Plan Outcomes Met? Yes Commanding Officer Motorized Squad Elena Nava technical training instructor Plan Last Modified By: Veronica Stratton 02/13/25 14:28:14 Case Comments Finalized By: Veronica Stratton Document Signatures Signed By: Veronica Stratton 02/13/25 15:20 [id number] Nephrology Progress note Date of Service 02/13/2025 [...] CORAL CARY MD on 02/13/2025 01:27 PM [facility] [id number] Note Date of Service 02/13/2025 Chief Complaint [...] Bactrim, who presented as a transfer from [facility] with lower extremity weakness and [...] versus infectious process. Patient was brought to [facility] admitted to MICU.Dialysis catheter was placed [...] ESTER PARNELL MD on 02/13/2025 09:08 AM [facility] [id number] NoteORIGINAL PROCEDURE: Temporary hemodialysis catheter placement with fluoroscopy and ultrasound BRAIDING OPERATOR: Ritika Curtis PA-C CLINICAL STATEMENT: GENE, [...] Sign Date: 02/13/2025 8:57:30 AM Ordering Provider: [facility] [id number] Evaluation + Plan noteExtracted from: Title:Consult Note [...] CT Pelvis w/ IV Contrast Only 06/27/24 [facility] 03-27-2025 Urology Progress note Date [...] TU DUTTON MD on 02/12/2025 01:11 PM [facility] [id number] History and physical note Date of Service [...] Bactrim, who presented as a transfer from [place] [facility] with lower extremity weakness and worsening [...] versus infectious process. Patient was brought to [facility] admitted to MICU. Dialysis catheter was [...] ESTER PARNELL MD on 02/12/2025 09:56 AM [facility] [id number] Note Date of Service 02/11/2025 Chief Complaint [...] BOB JONES MD on 02/11/2025 05:17 PM [facility] CenterLfzpgkgr77-00-1291 Note. MICRO - Microbiology PROCEDURE: Urine Culture [...] Locations *1: This test was performed at: [facility], [address] [place] [address], [id number] , [facility]03-26-2025 Note* Exam Date Time Procedure Performing Provider Status 02/11/25 11:56 AM Echocardiogram, Adult - CV FRANKI DODGE AT MD; Auth (Verified) [facility] [id number] Urology Consult note Date of Service 02/10/2025 [...] TU DUTTON MD on 02/10/2025 06:48 PM [facility] CenterOdtgfexs33-54-6909 Note IR Procedure Record Summary Primary Physician: RITIKA CURTIS PA-C Finalized Date/Time: 02/10/25 12:15:26 Pt. Name: GURINDER HAHN/Sex: 1975 Male Med Rec #: [id number] Physician: VIRIDIANA WILLIAM MD Financial #: [id number] Pt. Type: I Room/Bed: [facility]/A Admit/Disch: 02/10/25 01:15:00 - Institution: Allergies identified [...] Tech Role Performed Primary Surgeon Procedure Nurse Statistics Manager Details Time In 02/10/25 12:05:00 02/10/25 11:52:00 [...] Radiology - Action Plan Outcomes Met? Yes Commanding Officer [employer]ized [employer] Virginia Valadez RN Completing Procedure Plan Last Modified By: Virginia Valadez RN 02/10/25 12:10:40 Case Comments Finalized By: Virginia Valadez RN Document Signatures Signed By: Virginia Valadez RN 02/10/25 12:15 [facility] CenterBhlqvhlk39-79-9635 Note* Exam Date Time Procedure Performing Provider Status 02/10/25 12:14 PM IR Temporary Dialysis Catheter DAMARI CAO MD; Auth (Verified) [id number] ORIGINAL PROCEDURE: Temporary hemodialysis catheter placement with fluoroscopy and ultrasound BRAIDING OPERATOR: Ritika Curtis PA-C CLINICAL STATEMENT: GENE, [...] Sign Date: 02/13/2025 8:57:30 AM Ordering Provider: [facility]03-25-2025 Nephrology Consult note Date of Service 02/10/2025 Reason for Consultation GENE, hyperkalemia Referring Physician MICU team History of Present Illness This is a 49 years old male with history of obesity, hypertension, diabetes mellitus type2, HFrEF EF 40-45%, 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 In the ED he was noted to have hypertension blood pressure 171/93 satting 96% on room air, creatinine of6.19, bicarb 20, potassium 7.9, elevated proBNP. He was given IV Lasix high-dose and hyperkalemia cocktail and was transferred to the [place] MICU. Nephrology is consulted for management of acute renal failure and critical hyperkalemia. 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 was seen by our team during prior [...] CORAL CARY MD on 02/10/2025 10:05 AM [facility] CenterRuhjerds76-00-8739 Note* Exam Date Time Procedure Performing Provider Status 02/10/25 6:37 AM XR Chest 1 View LINA ARMANDO MD; Aut h (Verified) [id number] ORIGINAL EXAMINATION: ONE XRAY VIEW OF THE [...] 02/10/2025 6:48:10 AM Ordering Provider: MARTÍN KEY [facility] CenterVkbkbdaa75-05-6059 Note* Exam Date Time Procedure Performing Provider Status 02/10/25 5:25 AM US Renal LINA ARMANDO MD; Auth ( Verified) [id number] ORIGINAL EXAMINATION: ULTRASOUND OF THE KIDNEYS 02/10/2025 [...] By: Eliana Rivero Electronically signed By Lina rAmando MD Dictated Date: 02/10/2025 6:16:48 AM Prelim Date: 02/10/2025 6:22:11 AM Sign Date: 02/10/2025 6:52:46 AM Ordering Provider: MARTÍN BLACK[facility]ODOUR [facility] HOSPITALVernon [facility] CenterCdxujrny86-59-1795 Note* Exam Date Time Procedure Performing Provider Status 02/10/25 2:37 AM Electrocardiogram - EKG - CV NGOC MIN MD; Auth (Verified) ECG Final Report Sinus tachycardia Right bundle branch block Electronic Signature: NGOC MIN MD 02/10/2025 15:49:39 [facility] CenterUsapnxwq12-55-5198 Telephone encounter Note* Telephone Encounter - MOIRA Samuels CNP - 02/05/2025 8:34 AM EDT Noted. Agree with disposition. [facility] CincinnatiJvaaao60-43-1214 Miscellaneous Notes* Telephone Encounter - MOIRA Samuels [...] or WORSE than normal Protocols used: Breathing Fzbuysbvqk-LYBML-XA documented in this encounterSSelect [facility] SouthYdatgj67-18-5972 Telephone encounter Note* Telephone Encounter - Marielos Lu RN - 02/05/2025 7:39 AM EDT S: Patient spoke with [facility] nurse regarding trouble breathing at night. 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 FACILITY: [facility] DETAILS: OUTPT ANESTHESIA: GENERAL TIME REQUESTED: 1 hr DATE REQUESTED: ROUTINE FEBRUARY SURGERY ORDERS: will be placed Alex Morrison POST OP FOLLOW UP: 2 WK REP REQUESTED: No SPECIAL NEEDS: NONE PAT: yes MEDICAL CLEARANCE: Yes documented in this [facility]03-10-2025 Telephone encounter Note* Telephone Encounter - Christina Shaffer - 01/26/2025 10:29 AM EDT Spoke to pts about upcoming PAT 02/19/2025 and Surgery 02/26/2025 at [facility] Doctor: Prince HERNÁNDEZ (arrive 15 min early): [...] counter vitamins 3 days prior to surgery [facility] CincinnatiCwetmf82-27-5775 Telephone encounter Note* Telephone Encounter - Christina Shaffer - 01/26/2025 9:19 AM EDT Lvm to discuss upcoming PAT and surgery as well as instructions [facility] CincinnatiAaxwkr69-12-3480 NoteOR Request for surgery PROCEDURE: Cystoscopy, retrograde urethrogram, cystogram, bilateral retrograde pyelograms DIAGNOSIS: suprapubic drainage, 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 FACILITY: [facility] DETAILS: OUTPT ANESTHESIA: GENERAL TIME REQUESTED: 1 hr DATE REQUESTED: ROUTINE FEBRUARY SURGERY ORDERS: will be placed Alex Morrison POST OP FOLLOW UP: 2 WK REP REQUESTED: No SPECIAL NEEDS: NONE PAT: yes MEDICAL CLEARANCE: [facility]03-06-2025 Telephone encounter Note * Telephone Encounter - Jose Morrison MD - 01/22/2025 4:51 PM EST OR Request for surgery PROCEDURE: Cystoscopy, retrograde urethrogram, cystogram, bilateral retrograde pyelograms DIAGNOSIS: suprapubic drainage, 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 FACILITY: [facility] DETAILS: OUTPT ANESTHESIA: GENERAL TIME REQUESTED: 1 hr DATE REQUESTED: ROUTINE FEBRUARY SURGERY ORDERS: will be placed Alex Morrison POST OP FOLLOW UP: 2 WK REP REQUESTED: No SPECIAL NEEDS: NONE PAT: yes MEDICAL CLEARANCE: Yes [facility] [employer] Work Phone: [phone] History of Present illness Narrative* Ramon Ellis [...] gangrene Unable to locate operative reports from [facility] to determine exactly what was done [...] Nephro referral 09/17/24 progress note wound care ([facility]) - reported Claire's back in March 2024 requiring multiple debridement and ICU stay, reported to have had a catheter at rehab but removed it himself, started to notice leakage of urine from somewhere besides penis 04/16/24 presented to [place] ED - 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 Appt was already cancelled through [facility]. No rescheduling at this time. * Telephone Encounter - Maira Braden - 12/24/2024 10:35 AM EST Lisset called in stating she needs to cancel the patient's appt today 12/24/24 11:50 AM Monica w/Karley. R/S now 12/30/24 9:40 AM w/DR Morrison in [place]. * Telephone Encounter - Gracie Arzate - 12/16/2024 11:27 AM EST Pts gf called in to r/s appt on 12/18. He is now scheduled 12/24/[address] Morrison in [place] * Telephone Encounter - Maira Braden - [...] NO COVID TESTING: NO documented in this encounterSSelect Medical [facility] SouthJsjtyg94-04-1679 Telephone encounter Note* Telephone Encounter - MOIRA Samuels CNP - 01/05/2025 8:19 AM EST Reviewed chart. Refill not appropriate, too soon. RX refused [facility] CincinnatiAbrfet01-14-8402 Miscellaneous Notes* Telephone Encounter - MOIRA Samuels CNP - 01/05/2025 8:19 AM EST Reviewed chart. Refill not appropriate, too soon. RX refused * Telephone Encounter - Yadira Uribe MA - 01/05/2025 8:14 AM EST Prescription Request: Last medication check: 09/22/24 Last physical exam: none Next scheduled appointment: 02/02/25 CSA 09/22/24 Last date of refill on this medication 12/29/24 documented in this encounterSumma Akzmqp55-34-0098 Telephone encounter Note* Telephone Encounter - Yadira Uribe MA - 01/05/2025 8:14 AM EST Prescription Request: Last medication check: 09/22/24 Last physical exam: none Next scheduled appointment: 02/02/25 CSA 09/22/24 Last date of refill on this medication 12/29/24 [facility] CincinnatiYycbgt89-72-6745 Telephone encounter Note* Telephone Encounter - Maira Braden - 12/30/2024 8:07 AM EST [facility] called in to cancel 12/30/24 appt in [place] w/DR Morrison states the patient isn't feeling well. Appt was already cancelled through [facility]. No rescheduling at this time. [facility] CincinnatiLkpytq92-93-6280 Miscellaneous Notes* Telephone Encounter - Maira Braden - 12/30/2024 8:07 AM EST Lisset called in to cancel 12/30/24 appt in [place] w/DR Morrison states the patient isn't feeling well. Appt was already cancelled through [facility]. No rescheduling at this time. * Telephone Encounter - Maira Braden - 12/24/2024 10:35 AM EST [facility] called in stating she needs to cancel the patient's appt today 12/24/24 11:50 AM Monica [place]. R/S now 12/30/24 9:40 AM w/DR Morrison in [place]. * Telephone Encounter - Gracie Arzate - 12/16/2024 11:27 AM EST Pts gf called in to r/s appt on 12/18. He is now scheduled 12/24/[address] Morrison in [place] * Telephone Encounter - Maira Braden - [...] NO COVID TESTING: NO documented in this [facility]02-05-2025 Telephone encounter Note* Telephone Encounter - Maira Braden - 12/24/2024 10:35 AM EST L[facility] called in stating she needs to cancel the patient's appt today 12/24/24 11:50 AM Monica w/Karley. R/S now 12/30/24 9:40 AM w/DR Morrison in [place]. [facility] CincinnatiDsycnh62-82-4280 Miscellaneous Notes* Telephone Encounter - Maira Braden - 12/24/2024 10:35 AM EST [facility] called in stating she needs to cancel the patient's appt today 12/24/24 11:50 AM Monica w/Karley. R/S now 12/30/24 9:40 AM w/DR Morrison in [place]. * Telephone Encounter - Gracie Arzate - 12/16/2024 11:27 AM EST Pts gf called in to r/s appt on 12/18. He is now scheduled 12/24/[address] Morrison in [place] * Telephone Encounter - Maira Braden - [...] NO COVID TESTING: NO documented in this [facility]01-28-2025 Telephone encounter Note* Telephone Encounter - Gracie Arzate - 12/16/2024 11:27 AM EST Pts gf called in to r/s appt on 12/18. He is now scheduled 12/24/[address] Morrison in [place] [facility] CincinnatiFdxgsb27-03-6708 Miscellaneous Notes* Telephone Encounter - Gracie Arzate - 12/16/2024 11:27 AM EST Pts gf called in to r/s appt on 12/18. 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 - Gross hematuria- Chronic renal disease, stage IV (HCC) [facility] CincinnatiBihpfi94-54-1489 Miscellaneous Notes* Telephone Encounter - Maira Braden [...] NO COVID TESTING: NO documented in this [facility]01-21-2025 NoteSURGERY SCHEDULING PROCEDURE: : Cystoscopy, retrograde urethrogram, cystogram, retrograde pyelogram DIAGNOSIS: Vesicocutaneous fistula FACILITY: Any DETAILS: OUTPT ANESTHESIA: GENERAL TIME REQUESTED: 1 HR DATE REQUESTED: ROUTINE POST OP FOLLOW UP: 2 WK REP REQUESTED: MEDICAL CLEARANCE: CONFERENCE: NO COVID TESTING: [facility]01-21-2025 Telephone encounter Note* Telephone Encounter - Garrick Velasquez MD - 12/09/2024 6:02 PM EST SURGERY SCHEDULING PROCEDURE: : Cystoscopy, retrograde urethrogram, cystogram, retrograde pyelogram DIAGNOSIS: Vesicocutaneous fistula FACILITY: Any DETAILS: OUTPT ANESTHESIA: GENERAL TIME REQUESTED: 1 HR DATE REQUESTED: ROUTINE POST OP FOLLOW UP: 2 WK REP REQUESTED: MEDICAL CLEARANCE: CONFERENCE: NO COVID TESTING: NO [facility] Phone: [phone] History of Present illness Narrative* Garrick Velasquez [...] with Claire's gangrene. He was seen at [facility] in [place] and was transferred to [facility] in [place] and underwent extensive surgical debridement for Claire's [...] 06/30/2024 Type 2 diabetes mellitus without complication ([facility]/HCC) (HCC) UTI symptoms 01/13/2021 Weight loss [...] 08/13/23 Yes MOIRA Peralta CNP Continuous Glucose Sustainable Development Policy Analyst (FreeStyle Yanni 3 Voca) device Use as directed 09/22/24 Yes MOIRA [...] declined Stress: No Stress Concern Present (09/20/2024) [employer] [employer] - Occupational Stress Questionnaire Feeling of Stress : Not at all Social Connections: Unknown (09/20/2024) Social Connection and Isolation Panel [NHANES] Frequency of Communication with Friends and Family: Never Frequency of Social Gatherings with Friends and Family: Patient declined Attends Holiness Services: Patient declined Active Member of Clubs [...] MD 12/09/24 5:57 PM documented in this [facility]01-06-2025 Telephone encounter Note* Telephone Encounter - Gracie Arzate - 11/24/2024 1:24 PM EST Pts so called in to r/s appt. He is now scheduled 12/09/24 [facility] CincinnatiVxsdrg89-51-8327 Miscellaneous Notes* Telephone Encounter - Gracie Arzate - 11/24/2024 1:24 PM EST Pts so called in to r/s appt. He is now scheduled 12/09/24 * Telephone Encounter - Onelia Zuniga - 10/21/2024 1:49 PM EST Patient confirmed Patient appointment on Sunday11/25/2024. * Telephone Encounter - Misys Pereira - 10/21/2024 12:06 PM EST Preferred contact number: [phone] Reason for Visit: New Patient 10-21-[address] Velasquez cancelled due to transportation issues. Please call to reschedule accordingly Urgency of Appointment: New Patient Medications in need of refill: NA documented in this encounterSSelect [facility] SouthYxaydd41-11-1207 Telephone encounter Note* Telephone Encounter - MOIRA Samuels CNP - 11/20/2024 8:26 AM EST Reviewed chart. Refill appropriate. RX sent. [facility] CincinnatiAeecwv41-67-7073 Miscellaneous Notes* Telephone Encounter - MOIRA Samuels CNP - 11/20/2024 8:26 AM EST Reviewed chart. Refill appropriate. RX sent. * Telephone Encounter - Miguelina Ashford MA - 11/20/2024 8:18 AM EST Prescription Request: Last medication check: 09/22/24 Last physical exam: none Next scheduled appointment: none Last date of refill on this medication 10/29/24 30 and no refill documented in this [facility]01-02-2025 Telephone encounter Note* Telephone Encounter - Miguelina Ashford MA - 11/20/2024 8:18 AM EST Prescription Request: Last medication check: 09/22/24 Last physical exam: none Next scheduled appointment: none Last date of refill on this medication 10/29/24 30 and no refill [facility] CincinnatiFmnjvb09-64-0689 Telephone encounter Note* Telephone Encounter - Onelia Zuniga - 10/21/2024 1:49 PM EST Patient confirmed Patient appointment on Sunday11/25/2024. [facility] CincinnatiInyjmo58-67-9114 Telephone encounter Note* Telephone Encounter - Missy Pereira - 10/21/2024 12:06 PM EST Preferred contact number: [phone] Reason for Visit: New Patient 10-21-[address] Velasquez cancelled due to transportation issues. Please call to reschedule accordingly Urgency of Appointment: New Patient Medications in need of refill: NA [facility] CincinnatiEqnzyg96-99-8967 History of Present illness Narrative* MOIRA Peralta [...] was 7.6% on 07/14/24. Was in the custodial for about 4-5 months and has been [...] following up with wound care center in [place] every 2 weeks and has been packing [...] declined Stress: No Stress Concern Present (09/20/2024) [employer] [employer] - Occupational Stress Questionnaire Feeling of Stress : Not at all Social Connections: Unknown (09/20/2024) Social Connection and Isolation Panel [NHANES] Frequency of Communication with Friends and Family: Never Frequency of Social Gatherings with Friends and Family: Patient declined Attends Holiness Services: Patient declined Active Member of Clubs [...] Plan: 1. Diabetes mellitus with proteinuria (CMS/HCC) ([facility]) ([facility]) - Comprehensive metabolic panel - Microalbumin / creatinine urine ratio - Hemoglobin A1c - CBC - Diabetes Foot Exam - External referral to Nephrology - Continuous Glucose Sustainable Development Policy Analyst (FreeStyle Yanni 3 Voca) device; Use as directed, Normal - Continuous [...] polyneuropathy, with long-term current use of insulin ([facility]) - Comprehensive metabolic panel - Microalbumin / creatinine urine ratio - Hemoglobin A1c - CBC - Diabetes Foot Exam - Continuous Glucose Sustainable Development Policy Analyst (FreeStyle Yanni 3 Voca) device; Use as directed, Normal - Continuous [...] today. 3. Encounter for diabetic foot exam ([facility]) - Diabetes Foot Exam 4. Paroxysmal atrial fibrillation ([facility]) - Comprehensive metabolic panel - CBC - Stable. Continue Eliquis and Metoprolol as prescribed. 5. Cardiomyopathy, unspecified type ([facility]) - Lipid panel - Comprehensive metabolic panel [...] every evening) 3 mL 1 Continuous Glucose Sustainable Development Policy Analyst (FreeStyle Yanni 3 Voca) device Use as directed 1 each 0 [...] last name and . documented in this [facility]11-04-2024 Instructions* Patient Instructions* MOIRA Peralta CNP - 09/22/2024 1:40 PM EST Please obtain echocardiogram result from [facility]. documented in this [facility]10-24-2024 Telephone encounter Note* Telephone Encounter - MOIRA Samuels CNP - 09/11/2024 7:41 AM EDT Reviewed chart. Refill appropriate. RX sent. [facility] CincinnatiLvgfyp58-58-9920 Miscellaneous Notes* Telephone Encounter - MOIRA Samuels CNP - 09/11/2024 7:41 AM EDT Reviewed chart. Refill appropriate. RX sent. * Telephone Encounter - Miguelina Ashford MA - 09/11/2024 7:10 AM EDT Prescription Request: Last medication check: 04/05/23 Last physical exam: none Next scheduled appointment: 09/22/24 Last date of refill on this medication 08/11/24 30 and no refill documented in this [facility]10-24-2024 Telephone encounter Note* Telephone Encounter - Miguelina Ashford MA - 09/11/2024 7:10 AM EDT Prescription Request: Last medication check: 04/05/23 Last physical exam: none Next scheduled appointment: 09/22/24 Last date of refill on this medication 08/11/24 30 and no refill [facility] CincinnatiNytqan31-85-7433 Telephone encounter Note* Telephone Encounter - MOIRA Samuels CNP - 08/11/2024 10:01 AM EDT Refill sent for #30 NEEDS to come in for appt that is scheduled in 08/2024. [facility] CincinnatiUetixv83-97-1240 Miscellaneous Notes* Telephone Encounter - MOIRA Samuels [...] on this medication 02/05/24 documented in this encounterSSelect [facility] SouthTyvlja49-79-6438 Telephone encounter Note* Telephone Encounter - Miguelina Ashford MA - 08/11/2024 9:37 AM EDT Prescription Request: Last medication check: 04/05/23 Last physical exam: 2020 Next scheduled appointment: 08/27/24 Last date of refill on this medication 02/05/24 [facility] CincinnatiOgffyr23-25-6081 Note Discharge Instructions Thank you for allowing [facility] to assist you with your healthcare needs. The following is importantdischarge information regarding your hospital visit. Your Care Team PHOEBE ADAM APRN-FOUNDER / CEO Your Diagnosis Choledocholithiasis Dilation of common bile [...] OV 07/22/2024 11:00 AM EDT SAMRA BURROWS APRN-REGULATORY AFFAIRS INTERN [place] [facility] Confirmed Follow Up Appointments Follow Up with BIENVENIDO FAIRCHILD DO, Surgery Where:[address] [facility] [address] [facility] [place] [phone] Additional Information: Call for appointment Follow Up with PHOEBE ADAM APRN-FOUNDER / CEO Where:[address] [place] [address]- Additional Information: call for apt Follow Up with SON STEEL BA, MD, Infectious Disease, Infectious Disease Group Where:[facility] [address] [place] [address]- [phone] Additional Information: call for apt Follow Up with JOSE LAYTON MD Where:[address] [facility], [place] [phone] Additional Information: call for apt, to schedule ERCP (scope procedure) Follow Up with rios Orr [phone] The Following Activity and Diet Have Been [...] 12 hours Duration: 14 Days Pickup at [facility] #68283 New linezolid (Zyvox 600 mg oral tablet) 1 tab(s) by mouth Two (2) times a day Duration: 14 Days Pickup at [facility] #38834 Changed insulin glargine (Lantus 100 units/ mL10 [...] times a day Pharmacy Information [id number]: [address], [place] [phone] Please take this list to your next [...] Follow these instructions at home: Medicines Take rmbm-jpz-blftrbs and prescription medicines only as told by [...] 08/03/2004 Document Revised: 06/13/2019 Document Reviewed: 06/13/2019 [employer] Data Patient Education 2020 [employer] Additional Information VACCINATE! IT SAVES LIVES! Members of the community who have not yet received the COVID-19 vaccine and would like to receive it can visit one of [facility] vaccine clinics. There are many vaccine clinic locations within the [facility]. For locations and available times, please visit [email or web address].gov/. It is important to note that some COVID mobile vaccine clinics are held outdoors and may be canceled in rainy or stormy conditions. To learn more about pediatric vaccinations (ages 5-11), we invite you to visit the [facility] webpage. https://www.[facility].org/pages/8371-Euhtp-Bcxpsrihuhc-Calmlroyzy-Keimq-Waq stions.htmlTo learn more about the COVID-19 vaccine, we invite you to visit the CDC website for a list of frequently asked questions.https://www.cdc.gov/coronavirus/2019-ncov/vaccines/faq.html [employer] Patient Portal Access Instructions: Stay connected with your healthcare team and access your personal medical information anytime with the [employer] Patient Portal. Please follow the directions below to create your [employer] account: 1.Access the email account you provided upon registration to the hospital/physician office.2.Look for an invitation email from [facility].3.Open the email and access the invitation link: AcceptInvitation to [employer].4.Fill in the required nguyen to create your account. To access your account, visit [email or web address]. Click the blue button labeled Access Patient Portal and then log in with the username and password that you created in the steps above. You will be able to view your test results, lab results, a summary of your visits, upcoming appointments and more. There is also a convenient messaging option where you can send secure messages to your p Whimseyboxvider. In addition, you will have the ability to download any documents or summaries to your computer and/or send the information securely to a physician. Remember that your healthcare information is confidential, so carefully consider who you will allowto register on the [facility] Patient Portal for access to your information. You can also access the [employer] Patient Portal on the [facility] artemio. Simply click on Patient Portal and then log into your account. If you would like to receive a full copy of your medical records, please contact the [facility] Medical Records Department by calling [phone], Sunday through Sunday between 8 a.m. and [...] Call your local pharmacy or go to http://[employer]/2W3Qk8n to find one close to you.3.Make use of household items: Use cat litter or old coffee grounds to dispose medications if other options arenot available. Mix your drugs with these household products, seal them in an airtight container andthrow it into the garbage. Call [facility]: [phone] to be sure your drugs can be [...] aware that I should contact my doctor. 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 Signature: Date/Time: Relationship to Patient: Witness Name/Signature: Date/Time: [facility] [id number] Hospital Discharge instructions Patient Education 06/30/2024 14:39:45 [...] Follow these instructions at home: Medicines Take eksq-jcd-qrtflrh and prescription medicines only as told by [...] 08/03/2004 Document Revised: 06/13/2019 Document Reviewed: 06/13/2019 [employer] Patient Education 2020 [employer]. Follow Up Care 06/18/2024 12:13:04 With:BIENVENIDO FAIRCHILD DO, Surgery Address: [address] [place] [phone] When: Unknown Comments:Call for appointment With:PHOEBE ADAM APRN-FOUNDER / CEO Address: [address] [place] [address]- When: Unknown Comments:call for apt With:SON STEEL BA, MD, Infectious Disease, Infectious Disease Group [facility] [place] [address] [place] [phone] When: Unknown Comments:call for apt With:JOSE LAYTON MD Address: [address] [facility] [place] [phone] When: Unknown Comments:call for apt, to schedule ERCP (scope procedure) With:Kalpeshrios George [phone] Address: When: Unknown [facility] 08-12-2024 Note Discharge Instructions Thank you for allowing [facility] to assist you with your healthcare needs. The following is importantdischarge information regarding your hospital visit. Your Care Team PHOEBE ADAM APRN-FOUNDER / CEO Your Diagnosis Choledocholithiasis Dilation of common bile [...] StatusSurgery 07/01/2024 02:00 PM EDT Radha OR [phone] Confirmed URO OV 07/22/2024 11:00 AM SAMRA BLAS APRN-OLI [facility] Confirmed Follow Up Appointments Follow Up with BIENVENIDO FAIRCHILD DO, Surgery Where:[address] [facility] [address] [facility] [place] [place] [phone] Additional Information: Call for appointment Follow Up with PHOEBE ADAM APRN-FOUNDER / CEO Where:[address] [place] [address]- Additional Information: call for apt Follow Up with SON STEEL BA, MD, Infectious Disease, Infectious Disease Group Where:[facility] [address] [place] [phone] Additional Information: call for apt Follow Up with JOSE LAYTON MD Where:[address] [facility], [place] [phone] Additional Information: call for apt, to schedule ERCP (scope procedure) Follow Up with rios Orr [phone] The Following Activity and Diet Have Been [...] 12 hours Duration: 14 Days Pickup at [facility] #29111 New linezolid (Zyvox 600 mg oral tablet) 1 tab(s) by mouth Two (2) times a day Duration: 14 Days Pickup at [facility] #07581 Changed insulin glargine (Lantus 100 units/ mL10 [...] Two (2) times a day Pharmacy Information [facility] #[id number]: [address], [place] [phone] [phone] Please take this list to your next [...] Follow these instructions at home: Medicines Take ylgn-ktd-hpwbvez and prescription medicines only as told by [...] 08/03/2004 Document Revised: 06/13/2019 Document Reviewed: 06/13/2019 [employer] Effective [employer] Patient Education 2020 [employer]. Additional Information VACCINATE! IT SAVES LIVES! Members of the community who have not yet received the COVID-19 vaccine and would like to receive it can visit one of [facility] vaccine clinics. There are many vaccine clinic locations within the [facility]. For locations and available times, please visit https://[email or web address].gov/. It is important to note that some COVID mobile vaccine clinics are held outdoors and may be canceled in rainy or stormy conditions. To learn more about pediatric vaccinations (ages 5-11), we invite you to visit the [facility] webpage. https://www.[employer].org/pages/5917-Lzsaw-Enfktpkndit-Dnhmevnvtq-Qycjx-Okg stions.htmlTo learn more about the COVID-19 vaccine, we invite you to visit the CDC website for a list of frequently asked questions.https://www.cdc.gov/coronavirus/2019-ncov/vaccines/faq.html [employer] Patient Portal Access Instructions: Stay connected with your healthcare team and access your personal medical information anytime with the [employer] Patient Portal. Please follow the directions below to create your [employer] account: 1.Access the email account you provided upon registration to the hospital/physician office.2.Look for an invitation email from [facility].3.Open the email and access the invitation link: AcceptInvitation to [facility].4.Fill in the required nguyen to create your account. To access your account, visit [email or web address]. Click the blue button labeled Access Patient [...] who you will allowto register on the [facility] Patient Portal for access to your information. You can also access the [facility] on the [facility] artemio. Simply click on Patient Portal and then log into your account. If you would like to receive a full copy of your medical records, please contact the [facility] Medical Records Department by calling [phone], Sunday through Sunday between 8 a.m. and [...] Call your local pharmacy or go to http://[employer]/8S1Ik8l to find one close to you.3.Make use of household items: Use cat litter or old coffee grounds to dispose medications if other options arenot available. Mix your drugs with these household products, seal them in an airtight container andthrow it into the garbage. Call [facility]: [phone] to be sure your drugs can be [...] aware that I should contact my doctor. 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 Signature: Date/Time: Relationship to Patient: Witness Name/Signature: Date/Time: [facility] [id number] Discharge summary Date of Service 06/29/2024 14:52:22 [...] June 18, 2024 after being referred from [facility] where he had initially been referred from his nursing facility for evaluationof acute on chronic anemia along with decubitus wound recently had work done on decubitus wound in march of 2024. (hgb 6 and s/p 2 PRBCs during admit), R gluteal abscess from May prior to admit for which he is being managed at [facility] currently with ID guiding antibiotic [...] Extremities: No edema, No cyanosis or clubbing AUTO BODY ESTIMATOR: 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 Code Status [...] [address] [facility], [place] [phone] Additional Information: call for apt, to schedule ERCP (scope procedure) Follow Up with SON STEEL BA, MD, Infectious Disease, Infectious Disease Group When:Within 1-2 days Where:[facility] [address] [place] [phone] Additional Information: call for apt Follow Up with PHOEBE ADAM APRN-FOUNDER / CEO When:Within 1-2 days Where:[address] [place] [address]- Additional Information: call for apt Follow Up [...] CARMELO LUNDBERG MD on 06/29/2024 02:58 PM [facility] [id number] Progress note Date of Service June 30, [...] improving patient can be [facility]. If they have any questions would be happy to answer. Patient he can be discharged anytime the bed is available Anticipated Date of Discharge Depends on the certification Time Spent About 25 minutes Digitally Signed by FRANCESCA PARNELL MD on 06/30/2024 11:32 AM [facility] [id number] Discharge summary Date of Service 06/29/2024 14:52:22 [...] June 18, 2024 after being referred from [facility] where he had initially been referred from his nursing facility for evaluationof acute on chronic anemia along with decubitus wound recently had work done on decubitus wound in march of 2024. (hgb 6 and s/p 2 PRBCs during admit), R gluteal abscess from May prior to admit for which he is being managed at [facility] currently with ID guiding antibiotic [...] Extremities: No edema, No cyanosis or clubbing AUTO BODY ESTIMATOR: 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 Code Status [...] [address] [facility], [place] [phone] Additional Information: call for apt, to schedule ERCP (scope procedure) Follow Up with SON STEEL BA, MD, Infectious Disease, Infectious Disease Group When:Within 1-2 days Where:[facility] [place] [address] [place] [phone] Additional Information: call for apt Follow Up with PHOEBE ADAM APRN-ABEBA When:Within 1-2 days Where:[address] [place] [address]- Additional Information: call for apt Follow Up [...] CARMELO LUNDBERG MD on 06/29/2024 02:58 PM [facility] [id number] Gastroenterology Consult note Date of Service 06/29/2024 [...] and potential findings Plan Continue to hold EliIBTgamesis ERCP plan for Sunday Patient understands but [...] 3 mg= 1 tab(s), Oral, qHS, PRN [facility] [place] [facility] 325- 5 mg oral tablet, 1 tab(s), Oral, q4h, PRN [facility] [place] [facility] 325-10 mg oral tablet, 1 tab(s), Oral, [...] AM Digitally Signed by JOSE LAYTON MD [facility] [id number] Note Date of Service 06/28/2024 10:35:38 Chief Complaint elevated alk phos Subjective Patient is a 49-year-old gentleman who was admitted on June 18, 2024 after being referred from [facility] where he had initially been referred from his nursing facility for evaluationof acute on chronic anemia along with decubitus wound recently had work done on decubitus wound in march of 2024. (hgb 6 and s/p 2 PRBCs during admit), R gluteal abscess from May prior to admit for which he is being managed at [facility] currently with ID guiding antibiotic [...] +, wound VAC in place, no tenderness AUTO BODY ESTIMATOR: 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 Weight Dosing [...] CARMELO LUNDBERG MD on 06/28/2024 10:40 AM [facility] [id number] Note Date of Service 06/27/2024 12:16:22 Chief Complaint weakness Subjective Patient is a 49-year-old gentleman who was admitted on June 18, 2024 after being referred from [facility] where he had initially been referred from his nursing facility for evaluationof acute on chronic anemia along with decubitus wound recently had work done on decubitus wound in march of 2024. (hgb 6 and s/p 2 PRBCs during admit), R gluteal abscess from May prior to admit for which he is being managed at [facility] currently with ID guiding antibiotic [...] Extremities: No edema, No cyanosis or clubbing AUTO BODY ESTIMATOR: 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 Weight Dosing [...] CARMELO LUNDBERG MD on 06/27/2024 12:19 PM [facility] [id number] Gastroenterology Progress note Date of Service June [...] EDVIN OATES MD on 06/27/2024 10:15 AM [facility] [id number] Note Date of Service 06/26/2024 14:35:11 Chief Complaint weakness Subjective Patient is a 49-year-old gentleman who was admitted on June 18, 2024 after being referred from [facility] where he had initially been referred from his nursing facility for evaluationof acute on chronic anemia along with decubitus wound recently had work done on decubitus wound in march of 2024. (hgb 6 and s/p 2 PRBCs during admit), R gluteal abscess from May prior to admit for which he is being managed at [facility] currently with ID guiding antibiotic [...] in place Extremities: No edema, no jaundice AUTO BODY ESTIMATOR: 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 Weight Dosing [...] CARMELO LUNDBERG MD on 06/26/2024 02:39 PM [facility] [id number] Gastroenterology Progress note Date of Service 06/26/2024 [...] by LIAT IBARRA on 06/26/2024 10:08 AM [facility] [id number] Note ORIGINAL EXAMINATION: MRCP06/26/2024 11:10 am MRI [...] Sign Date: 06/26/2024 5:05:11 PM Ordering Provider: 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 Patient originally presented to [facility] with anemia, concern for decubitus wound infection/sepsis. He was transferred and admitted to [facility] on 06/18. 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 Patient originally presented to [facility] with anemia, concern for decubitus wound infection/sepsis. He was transferred and admitted to [facility] on 06/18. On initial presentation, [...] 3 mg= 1 tab(s), Oral, qHS, PRN [facility] [place] [facility] 325- 5 mg oral tablet, 1 tab(s), Oral, q4h, PRN [facility] [place] [facility] 325-10 mg oral tablet, 1 tab(s), Oral, [...] by LIAT IBARRA on 06/25/2024 03:05 PM [facility] [id number] Infectious disease Progress note Date of Service [...] Faiza Galindo RN on 06/24/2024 09:16 AM [facility] [id number] Infectious disease Progress note Date of Service [...] Faiza Galindo RN on 06/24/2024 09:16 AM [facility] [id number] Infectious disease Progress note Subjective Patient was [...] STEEL BA, MD on 06/23/2024 05:08 PM [facility] [id number] Note ORIGINAL EXAMINATION: LIMITED ABDOMINAL ULTRASOUND06/23/2024 10:20 [...] Sign Date: 06/23/2024 10:37:07 AM Ordering Provider: [facility]08-05-2024 Note IR Procedure Record Summary Primary Physician: WALDO ESPARZA MD Finalized Date/Time: 06/23/24 09:24:09 Pt. Name: GURINDER HAHN./Sex: 1975 Male Med Rec #: [id number] Physician: ILEANA RICO MD Financial #: [id number] Pt. Type: I Room/Bed: [facility]/A Admit/Disch: 06/18/24 16:06:00 - Institution: Allergies identified [...] Signatures Signed By: CELSO Corley 06/23/24 09:24 [facility] [id number] Note ORIGINAL HISTORY: ORDERING SYSTEM PROVIDED HISTORY: Reason for Exam: MRI pelvis showing 6.4 x 8.5 cm subcutaneous abscess, TECHNIQUE: Dose modulation, iterative reconstruction, and/or weight based adjustment of the mA/kV was utilized to reduce the radiation dose to as low as reasonably achievable. PROCEDURE: 1. Aborted CT guided percutaneous drainage catheter placement, supra teens right gluteal collection BRAIDING OPERATOR: Dr. Esparza SCREENER AND BLENDER: None ANESTHESIA: None FINDINGS: PRE: Within the [...] Waldo Esparza MD Electronically signed By Waldo Esaprza MD Dictated Date: 06/23/2024 9:40:20 AM Prelim Date: 06/23/2024 9:45:31 AM Sign Date: 06/23/2024 9:45:31 AM Ordering Provider: CIARA [facility]08-04-2024 Nurse Progress note patient refused his dressing change at this time. Patient states he will allow his dressing change later tonight. Digitally Signed by CELSO Gray on 06/22/2024 06:36 PM [facility] [id number] Infectious disease Progress note Date of Service [...] CIARA VIGIL MD on 06/22/2024 11:58 AM [facility] [id number] Urology Progress note Date of Service 06/20/24 [...] NATA BENZ DO on 06/20/2024 12:33 PM [facility] [id number] Surgery Hospital Progress note Date of Service [...] WILLA RODARTE MD on 06/20/2024 07:42 AM [facility] [id number] Note ORIGINAL EXAMINATION: MRI OF THE PELVIS [...] Date: 06/20/2024 10:13:17 AM Ordering Provider: ILEANA [facility]08-01-2024 Nurse Progress note ACNS charting reviewed, bedside nurse present for medication administration. Digitally Signed by Maricel Zelaya RN on 06/19/2024 03:18 PM [facility] [id number] Note Reason for Consultation Admission From: ECF [...] Signed by CELSO Olivas February06/19/2024 01:04 PM [facility] [id number] Infectious disease Consult note Date of Service [...] hemoglobin was low at 6 [place] abdomen and pelvis [...] had CT abdomen and pelvis obtained at [place] which has shown to fluid collections close [...] mg= 1 tab(s), Oral, qHS, PRN meropenem [facility] [place] [facility] 325- 5 mg oral tablet, 1 tab(s), Oral, q4h, PRN [facility] 325-10 mg oral tablet, 1 tab(s), Oral, [...] CIARA VIGIL MD on 06/19/2024 02:53 PM [facility] [id number] Consult note Date of Service June 19, 2024 Reason for Consultation Pressure ulcer right gluteal area stage IV Nonpressure ulcer perineum History of Claire's disease Diabetes mellitus type 2 History of coronary artery disease Referring Physician Hospitalist History of Present Illness Patient was admitted to [facility] in March of this year [...] EXTR area patient also is in a custodial being treated. He had developed a pressure ulcer on the right gluteal area which was not present when the patient was here and has some slough necrotic tissue present patient also has an open area on the suprapubic area which is very clean and healthy looking. Patient is now was brought to [facility] for further care for localizedabscess [...] problems has been presently staying in a custodial. Wound has been treated at the nursing wound care in [place] which seems to be improving gradually. But [...] being followed at the wound center in [place] which seems to be adequateand treatment there [...] mg= 1 tab(s), Oral, qHS, PRN meropenem [facility] 325- 5 mg oral tablet, 1 tab(s), Oral, q4h, PRN [facility] 325-10 mg oral tablet, 1 tab(s), Oral, [...] FRANCESCA PARNELL MD on 06/19/2024 11:40 AM [facility] [id number] Surgery Consult note Date of Service Reason [...] his comorbidities the patient was sent to [place] emergency room yesterday secondary to his abnormal [...] gangrene. The patient was then transferred to [facility] for definitive care Patient has been being seen and treated at the wound center in [place] for his sacral ulcer. He reports that [...] mg= 1 tab(s), Oral, qHS, PRN meropenem [facility] 325- 5 mg oral tablet, 1 tab(s), Oral, q4h, PRN [facility] 325-10 mg oral tablet, 1 tab(s), Oral, [...] by IRIS VILLALPANDO on 06/19/2024 10:30 AM [facility] [id number] Surgery Consult note Date of Service Reason [...] his comorbidities the patient was sent to [place] emergency room yesterday secondary to his abnormal [...] gangrene. The patient was then transferred to [facility] for definitive care Patient has been being seen and treated at the wound center in [place] for his sacral ulcer. He reports that [...] mg= 1 tab(s), Oral, qHS, PRN meropenem [facility] 325- 5 mg oral tablet, 1 tab(s), Oral, q4h, PRN [facility] 325-10 mg oral tablet, 1 tab(s), Oral, [...] by IRIS VILLALPANDO on 06/19/2024 10:30 AM [facility] [id number] Urology Consult note Date of Service 06/19/24 Reason for Consultation Perineal fluid collection History of Present Illness 49-year-old male past medical history of nonischemic cardiomyopathy EF of 25 to 30% improved to 40-45% by last echo, proximal atrial fibrillation on Eliquis, CKD, chronic Hernandez, Claire's gangrene status postdebridement back in March 2024, insulin-dependent diabetes, hyperlipidemia, hypertension [facility] [facility] due to concern for decubitus wound infection [...] mg= 1 tab(s), Oral, qHS, PRN meropenem [facility] 325- 5 mg oral tablet, 1 tab(s), Oral, q4h, PRN [facility] 325-10 mg oral tablet, 1 tab(s), Oral, [...] NATA BENZ DO on 06/19/2024 08:21 AM [id number] History and physical note Date of Service 06/18/2024 Chief Complaint Gluteal abscess, sepsis History of Present Illness 49-year-old male past medical history of nonischemic cardiomyopathy EF of 25 to 30% improved to 40-45% by last echo, proximal atrial fibrillation on Eliquis, CKD, chronic Hernandez, Claire's gangrene status postdebridement back in March 2024, insulin-dependent diabetes, hyperlipidemia, hypertension presents to [facility] due to concern for decubitus wound infection [...] qualifying data available. Exam done with bedside moth proofer General- in no acute distress, alert Cardiac- [...] and scrotal abscess. Follow-up urine culture from [facility]. SCD DVT prophylaxis. Blood sugar control with home insulin regimen sliding scale. MRI of the pelvis to rule out osteomyelitis. Hold anticoagulation for now given anemia. This document was transcribed using a voice recognition software and may contain typographical errors. Lab Results No 36 Hour Lab Data Assessment/Plan Orders: acetaminophen(Tylenol), 650 mg= 2 tab(s), Oral, q4h, PRN acetaminophen-hydrocodone([facility] 325- 5 mg oral tablet), 1 tab(s), Oral, q4h, PRN acetaminophen-hydrocodone([facility] 325-10 mg oral tablet), 1 tab(s), Oral, [...] pro... Ambulate, 06/18/24 17:04:00 EDT, PRN Order [employer] Diet(ADA Diet), 06/18/24 17:13:00 EDT, [...] order Vancomycin Pharmacist Monitoring, 06/19/24 6:00:00 EDT, [id number], entered secondary to Vancomycin order Vital Signs, [...] ILEANA RICO MD on 06/18/2024 07:58 PM [facility] [id number] Evaluation + Plan noteExtracted from: Title:History and Physical Author:KEREN RICO MD Date:06/18/24 Orders: acetaminophen(Tylenol), 650 mg= 2 tab(s), Oral, q4h, PRN acetaminophen-hydrocodone([facility] 325- 5 mg oral tablet), 1 tab(s), Oral, q4h, PRN acetaminophen-hydrocodone([facility] 325-10 mg oral tablet), 1 tab(s), Oral, [...] pro... Ambulate, 06/18/24 17:04:00 EDT, PRN Order [employer] Diet(ADA Diet), 06/18/24 17:13:00 EDT, [...] order Vancomycin Pharmacist Monitoring, 06/19/24 6:00:00 EDT, [id number], entered secondary to Vancomycin order Vital Signs, 06/18/24 17:04:00 EDT, q8h Future Appointments Appointment Date:07/22/2024 11:00:00 AM Scheduled Provider:SAMRA BURRWOS Location:UROLOGY Appointment Type:URO OV Future Scheduled Tests Radiology* CT Pelvis w/ IV Contrast Only 06/27/24 [facility] 07-19-2024 Note Discharge Instructions Thank you for allowing [facility] to assist you with your healthcare needs. The following is importantdischarge information regarding your hospital visit. What to Do Next Instructions from Your Care Team No qualifying data available. Post Acute Orders No qualifying data available. You Need to Schedule the Following Appointments Follow Up with PHOEBE ADAM When:Within 2-4 days Where:[address] [place] [address]- Allergies ampicillin Unknown penicillin Unknown Medications Please [...] from the wound Vomiting, constipation, or diarrhea [id number] [employer] [place] [address]. All rights reserved. This information is not [...] hard Skin that has lost feeling (sensation) 2113-[address] [employer] [place] [address]. All rights reserved. This information is not intended as a substitute for professional medical care. Always follow yourhealthcare professional's instructions. Additional Information VACCINATE! IT SAVES LIVES! Members of the community who have not yet received the COVID-19 vaccine and would like to receive it can visit one of [facility] vaccine clinics. There are many vaccine clinic locations within the [facility]. For locations and available times, please visit www.gettheshot.coronavirus.[place].gov/. It is important to note that some COVID mobile vaccine clinics are held outdoors and may be canceled in rainy or stormy conditions. To learn more about pediatric vaccinations (ages 5-11), we invite you to visit the [facility] webpage. https://www.[facility].org/pages/2835-Mebnq-Qacyqfotudb-Cnbnlneafu-Lpitz-Dyr stions.htmlTo learn more about the COVID-19 vaccine, we invite you to visit the CDC website for a list of frequently asked questions. https://www.cdc.gov/coronavirus/2019-ncov/vaccines/faq.html [facility] Patient Portal Access Instructions: Stay connected with your healthcare team and access your personal medical information anytime with the [facility] Patient Portal. If you would like a full copy of your medical records please contact the [facility] Medical Records Department Sunday through Sunday between 8a.m. and 4:30p.m. Please follow the directions below to access the portal: 1.Access the email account you provided upon registration to the [facility].2.Look for an invitation email from [facility].3.Open the email and access the invitation link: Accept Invitation to [facility]4.Fill in the required nguyen to create your account. Sign into [email or web address] with your username and password that you [...] you will allow to register on the [facility] Patient Portal for access to your information. You can also access the [facility] Patient Portal on the [employer] artemio. Simply click on Health Records under [employer] and then click on the [facility] logo. [...] Call your local pharmacy or go to http://bit.Bandsintown Group/3L6Jc1j to find one close to you.3.Make use of household items: Use cat litter or old coffee grounds to dispose medications if other options arenot available. Mix your drugs with these household products, seal them in an airtight container andthrow it into the garbage. Call [facility]: [phone] to be sure your drugs can be [...] aware that I should contact my doctor. 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 Signature: Date/Time: Relationship to Patient: Witness Name/Signature: Date/Time: [facility]07-19-2024 Hospital Discharge instructions Patient Education 06/06/2024 03:49:29 [...] from the wound Vomiting, constipation, or diarrhea 4125-[address] [employer] [place] [address]. All rights reserved. This information is not [...] hard Skin that has lost feeling (sensation) 4214-[address] [employer] [place] [address]. All rights reserved. This information is not intended as a substitute for professional medical care. Always follow yourhealthcare professional's instructions. Follow Up Care 06/06/2024 01:28:08 With:PHOEBE ADAM Address: [address] [place] [address]- When:2-4 days [facility] 07-19-2024 Note ORIGINAL EXAMINATION: ONE XRAY VIEW [...] Date: 06/06/2024 1:07:43 PM Ordering Provider: JIMENA [facility]07-15-2024 Telephone encounter Note* Telephone Encounter - MOIRA Peralta CNP - 06/02/2024 2:21 PM EDT Noted. [id number] Miscellaneous Notes* Telephone Encounter - MOIRA Peralta [...] on this medication: 12/14/2023 documented in this encounterSSelect [facility] [id number] Telephone encounter Note* Telephone Encounter - MOIRA Peralta CNP - 06/02/2024 12:50 PM EDT Is he still at an extended care facility? If he is, are they managing his medications there? [id number] Telephone encounter Note* Telephone Encounter - Viki Velasquez MA - 06/02/2024 8:23 AM EDT Prescription Request: Last medication check: 04/05/2023 Last physical exam: 06/22/2021 Next scheduled appointment: none Last date of refill on this medication: 12/14/2023 [id number] Hospital Discharge instructions Patient Education 05/15/2024 17:45:11 Heart-Healthy Eating Plan, Ycdh-xp-Pnyq Heart-Healthy Eating Plan Heart-healthy meal planning includes: [...] Fats and oils Meat fat, or shortening. Crowheart butter, hydrogenated oils, palm oil, coconut oil, [...] 05/06/2013 Document Revised: 01/09/2019 Document Reviewed: 12/13/2018 SignaCert Patient Education 2020 [employer]. Follow Up Care 05/07/2024 13:00:12 With:[facility]charge to [facility] Address:Unknown When:1-2 days With:DAMARI FATIMA MD, Internal Medicine Address: [address] [facility] [place] [address]- When:5 to 7 days With:JEN BELTRAN MD Address: [address] [facility] [address] [facility] [place] [address] [phone] When:Within 10 Day(s) With:PHOEBE ADAM Address: [address] [place] [address]- [facility] (1) When: Unknown Comments:PLEASE CALL THIS OFFICE TO SCHEDULE A HOSPITAL FOLLOW UP APPOINTMENT. With:JEN BELTRAN MD Address: [address] [place] [address]- [phone] When:06/17/2024 10:15:00 With:[facility] Address: [address] [place] [address]- When:5-7 days Comments:Ahmad following scrotum wound & please see right buttock ulcer [facility] 06-27-2024 Note Discharge Instructions Thank you for allowing [facility] to assist you with your healthcare needs. The following is importantdischarge information regarding your hospital visit. Your Care Team PHOEBE ADAM APRN-FOUNDER / CEO What to do next Instructions From Your Doctor 1. Kindly follow up with your Primary Care Physician and Alumni Secretary as recommended. You will needto do labwork in 3-5 days after being discharged. 2. Some of your medications may have changed during this hospital stay. Please go over these changes with your nurse before you leave the hospital. _ 3. Take all your medications as prescribed. If you have any queries, please reach out to our [facility] office at [phone] for general queries and [phone] for medication refills. 4. All your medical records and results are available to you through our [facility] Patient Portal. Tosign up, please visit [email or web address] Scheduled Follow-Up Appointments Appointment Type When Where Contact Information StatusCV OV Hospital Follow Up 06/17/2024 10:15 AM EDT [facility] Confirmed Follow Up Appointments Follow Up with Discharge to [facility] Level [facility] Care When:Within 1-2 days Follow Up with DAMARI FATIMA MD, Internal Medicine When:Within 5 to 7 days Where:[address] [facility] [place] [address]- Follow Up with JEN BELTRAN MD When:In 10 days Where:[address] [facility] [address] [place] [address] [phone] Follow Up with PHOEBE ADAM Where:[address] [place] [address]- Business (1) Additional Information: PLEASE CALL THIS OFFICE TO SCHEDULE A HOSPITAL FOLLOW UP APPOINTMENT. Follow Up with [facility] When:Within 5-7 days Where:[address] [place] [address]- Additional Information: Ahmad following scrotum wound & please see right buttock ulcer Follow Up with JEN BELTRAN MD When:06/17/2024 10:15 AM EDT Where:[address] [place] [address]- [phone] The Following Activity and Diet Have Been [...] BELTRAN MD Results Notify to: PCP and press department manager, 05/15/24 11:49:00 EDT Discharge Radiology No [...] a day Duration: 30 Days Pickup at [facility] #04774 Changed bumetanide (bumetanide 1 mg oral tablet) 1 tab(s) by mouth Two (2) times a day Duration: 30 Days Start on Pickup at [facility] #42957 Changed cefdinir (cefdinir 300 mg oral capsule) 1 cap by mouth Two (2) times a day Duration: 13 Days Pickup at [facility] #24269 Changed metoprolol (Toprol-XL 100 mg oral tablet, extended release) 1 tab(s) by mouth Two (2) times a day Duration: 30 Days [facility] at [facility]12598 Changed minocycline (minocycline 100 mg oral capsule) 1 cap by mouth Every 12 hours Duration: 13 Days Pickup at [facility] #92824 Unchanged acetaminophen (Tylenol 8 Hour 650 mg [...] Two (2) times a day Pharmacy Information [facility] #[id number]: [address], [place] [id number] [phone] What How Much When Comments Stop Taking [...] Fats and oils Meat fat, or shortening. Crowheart butter, hydrogenated oils, palm oil, coconut oil, [...] 05/06/2013 Document Revised: 01/09/2019 Document Reviewed: 12/13/2018 SignaCert Patient Education 2020 Sign[employer]Cert Inc. Additional Information VACCINATE! IT SAVES LIVES! Members of the community who have not yet received the COVID-19 vaccine and would like to receive it can visit one of [facility] vaccine clinics. There are many vaccine clinic locations within the [facility]. For locations and available times, please visit [email or web address]/. It is important to note that some COVID mobile vaccine clinics are held outdoors and may be canceled in rainy or stormy conditions. To learn more about pediatric vaccinations (ages 5-11), we invite you to visit the [facility] webpage. https://www.[employer]geBees.org/pages/3929-Vubfh-Ivayekecrst-Xcicfdkfpj-Xikvv-Wrm stions.htmlTo learn more about the COVID-19 vaccine, we invite you to visit the CDC website for a list of frequently asked questions.https://www.cdc.gov/coronavirus/2019-ncov/vaccines/faq.html [facility] Patient Portal Access Instructions: Stay connected with your healthcare team and access your personal medical information anytime with the [facility] Patient Portal. Please follow the directions below to create your [facility] account: 1.Access the email account you provided upon registration to the hospital/physician office.2.Look for an invitation email from [facility].3.Open the email and access the invitation link: AcceptInvitation to [facility].4.Fill in the required nguyen to create your account. To access your account, visit [email or web address]. Click the blue button labeled Access Patient [...] who you will allowto register on the [facility] Patient Portal for access to your information. You can also access the [facility] on the [place] artemio. Simply click on Patient Portal and then log into your account. If you would like to receive a full copy of your medical records, please contact the [facility] Medical Records Department by calling [phone], Sunday through Sunday between 8 a.m. and [...] Call your local pharmacy or go to http://[employer]own [employer]/1S0Eg7s to find one close to you.3.Make use of household items: Use cat litter or old coffee grounds to dispose medications if other options arenot available. Mix your drugs with these household products, seal them in an airtight container andthrow it into the garbage. Call [facility]: [phone] to be sure your drugs can be [...] Signatures Patient Education Materials Heart-Healthy Eating Plan, Lhrh-vu-Pggv Medication Leaflets My discharge plan and instructions have been reviewed and explained to me and I,GURINDER HAHN understand my current condition and have read and understand these discharge instructions. I have received a written copy of the plan/instructions. If I have questions, I am aware that I should contact my doctor. 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 Signature: Date/Time: Relationship to Patient: Witness Name/Signature: Date/Time: [facility] [id number] Discharge summary Date of Service 05/15/24 Discharge [...] after discharge and close follow-up with PCP/primary press department manager/merchandise buyer as an outpatient. SGLT2i inhibitors are not [...] Classes, Once Consult to Dietitian (Consult to Chute Operator Adult) - Ordered -- 05/14/24 17:22:00 EDT, [...] up with your Primary Care Physician and Alumni Secretary as recommended. You will needto do labwork in 3-5 days after being discharged. 2. Some of your medications may have changed during this hospital stay. Please go over these changes with your nurse before you leave the hospital. _ 3. Take all your medications as prescribed. If you have any queries, please reach out to our [facility] office at [phone] for general queries and [phone] for medication refills. 4. All your medical records and results are available to you through our [facility] Patient Portal. Tosign up, please visit [email or web address] Medications Changed apixaban (Eliquis 5 mg oral [...] Where:[address] [facility] [place] [address]- Follow Up with JEN BELTRAN MD When:In 10 days Where:[address] [facility] [address] [facility] [place] [phone] Follow Up with PHOEBE ADAM Where:[address] [place] [address]- Business (1) Additional Information: PLEASE CALL THIS OFFICE TO SCHEDULE A HOSPITAL FOLLOW UP APPOINTMENT. Follow Up with [facility] When:Within 5-7 days Where:[address] [place] [address]- Additional Information: Ahmad following scrotum wound & please see right buttock ulcer Follow Up with JEN BELTRAN MD When:06/17/2024 10:15 AM EDT Where:[address] [facility] [place] [address]- [phone] Follow Up Appointments No qualifying data available. Follow Up Labs/Studies Discharge Labs Discharge Outpatient Labwork - Ordered -- BMP, Magnesium level, Follow up of electrolytes while on cardiac medications, follow-up within: 3-5 days, Results Notify to: JEN BELTRAN MD Results Notify to: PCP and press department manager, 05/15/24 11:49:00 EDT Discharge Studies No [...] JC OROZCO MD on 05/15/2024 11:54 AM [facility] CenterBbmedfgg29-65-0055 Note Discharge Instructions Thank you for allowing [facility] to assist you with your healthcare needs. The following is importantdischarge information regarding your hospital visit. Your Care Team PHOEBE ADAM APRN-FOUNDER / CEO What to do next Instructions From Your Doctor 1. Kindly follow up with your Primary Care Physician and Alumni Secretary as recommended. You will needto do labwork in 3-5 days after being discharged. 2. Some of your medications may have changed during this hospital stay. Please go over these changes with your nurse before you leave the hospital. _ 3. Take all your medications as prescribed. If you have any queries, please reach out to our [facility] office at [phone] for general queries and [phone] for medication refills. 4. All your medical records and results are available to you through our [facility] Patient Portal. Tosign up, please visit [email or web address] Scheduled Follow-Up Appointments Appointment Type When Where Contact Information StatusCV OV Hospital Follow Up 06/17/2024 10:15 AM EDT [facility] Confirmed Follow Up Appointments Follow Up with Discharge to [facility] Level [facility] Care When:Within 1-2 days Follow Up with DAMARI FATIMA MD, Internal Medicine When:Within 5 to 7 days Where:[address] [facility] [place] [address]- Follow Up with JEN BELTRAN MD When:In 10 days Where:[address] [facility] [address] [place] [phone] Follow Up with PHOEBE ADAM Where:[address] [place] [address]- Business (1) Additional Information: PLEASE CALL THIS OFFICE TO SCHEDULE A HOSPITAL FOLLOW UP APPOINTMENT. Follow Up with [facility] When:Within 5-7 days Where:[address] [place] [address]- Additional Information: Ahmad following scrotum wound & please see right buttock ulcer Follow Up with JEN BELTRAN MD When:06/17/2024 10:15 AM EDT Where:[address] [place] [address]- [phone] The Following Activity and Diet Have Been [...] BELTRAN MD Results Notify to: PCP and press department manager, 05/15/24 11:49:00 EDT Discharge Radiology No [...] a day Duration: 30 Days Pickup at [facility] #83350 Changed bumetanide (bumetanide 1 mg oral tablet) 1 tab(s) by mouth Two (2) times a day Duration: 30 Days Start on Pickup at [facility] #18271 Changed cefdinir (cefdinir 300 mg oral capsule) 1 cap by mouth Two (2) times a day Duration: 13 Days Pickup at [facility] #73234 Changed metoprolol (Toprol-XL 100 mg oral tablet, extended release) 1 tab(s) by mouth Two (2) times a day Duration: 30 Days Pickup at [facility] #41960 Changed minocycline (minocycline 100 mg oral capsule) 1 cap by mouth Every 12 hours Duration: 13 Days Pickup at [facility] #34083 Unchanged acetaminophen (Tylenol 8 Hour 650 mg [...] Two (2) times a day Pharmacy Information [facility] #58500: [address], [place] [phone] What How Much When Comments Stop Taking [...] to receive it can visit one of [facility] vaccine clinics. There are many vaccine clinic locations within the [facility]. For locations and available times, please visit https://[email or web address].[place].gov/. It is important to note that some COVID mobile vaccine clinics are held outdoors and may be canceled in rainy or stormy conditions. To learn more about pediatric vaccinations (ages 5-11), we invite you to visit the [employer] webpage. https://www.ChargeBees.org/pages/8913-Gbvag-Ijkroiaxayc-Ybquzvxdjv-Aymuh-Xxn stions.htmlTo learn more about the COVID-19 vaccine, we invite you to visit the CDC website for a list of frequently asked questions.https://www.cdc.gov/coronavirus/2019-ncov/vaccines/faq.html [facility] Patient Portal Access Instructions: Stay connected with your healthcare team and access your personal medical information anytime with the [facility] Patient Portal. Please follow the directions below to create your [facility] account: 1.Access the email account you provided upon registration to the hospital/physician office.2.Look for an invitation email from [facility].3.Open the email and access the invitation link: AcceptInvitation to [facility].4.Fill in the required nguyen to create your account. To access your account, visit [email or web address]. Click the blue button labeled Access Patient [...] who you will allowto register on the [facility] Patient Portal for access to your information. You can also access the [facility] on the [place] [facility] artemio. Simply click on Patient Portal and then log into your account. If you would like to receive a full copy of your medical records, please contact the [facility] Medical Records Department by calling [phone], Sunday through Sunday between 8 a.m. and [...] Call your local pharmacy or go to http://Shopping Mail/9F4Hi0u to find one close to you.3.Make use of household items: Use cat litter or old coffee grounds to dispose medications if other options arenot available. Mix your drugs with these household products, seal them in an airtight container andthrow it into the garbage. Call [facility]: [phone] to be sure your drugs can be [...] aware that I should contact my doctor. 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 Signature: Date/Time: Relationship to Patient: Witness Name/Signature: Date/Time: [id number] Discharge summary Date of Service 05/15/24 Discharge [...] after discharge and close follow-up with PCP/primary press department manager/merchandise buyer as an outpatient. SGLT2i inhibitors are not [...] Classes, Once Consult to Dietitian (Consult to Chute Operator Adult) - Ordered -- 05/14/24 17:22:00 EDT, diet instruction, CCU Consult to Physician - Ordered -- 05/08/24 7:05:00 EDT, DAMARI FATIMA MD, Routine, GENE/ GENE on CKD Consult to Physician - Ordered -- 05/08/24 7:07:00 EDT, OSN STEEL BA, MD, Routine, Recent Claire's gangrene [...] up with your Primary Care Physician and Alumni Secretary as recommended. You will needto do labwork in 3-5 days after being discharged. 2. Some of your medications may have changed during this hospital stay. Please go over these changes with your nurse before you leave the hospital. _ 3. Take all your medications as prescribed. If you have any queries, please reach out to our [facility] office at [phone] for general queries and [phone] for medication refills. 4. All your medical records and results are available to you through our [facility] Patient Portal. Tosign up, please visit [email or web address] Medications Changed apixaban (Eliquis 5 mg oral [...] and [facility] [place] [address]- Follow Up with JEN BELTRAN MD When:In 10 days Where:[address] [facility] [address] [facility] [place] [address]- [phone] Follow Up with PHOEBE ADAM Where:[address] [place] [address]- Business (1) Additional Information: PLEASE CALL THIS OFFICE TO SCHEDULE A HOSPITAL FOLLOW UP APPOINTMENT. Follow Up with [facility] When:Within 5-7 days Where:[address] [place] [address]- Additional Information: Ahmad following scrotum wound & please see right buttock ulcer Follow Up with JEN BELTRAN MD When:06/17/2024 10:15 AM EDT Where:[address] [facility] [place] [address]- [phone] Follow Up Appointments No qualifying data available. Follow Up Labs/Studies Discharge Labs Discharge Outpatient Labwork - Ordered -- BMP, Magnesium level, Follow up of electrolytes while on cardiac medications, follow-up within: 3-5 days, Results Notify to: JEN BELTRAN MD Results Notify to: PCP and press department manager, 05/15/24 11:49:00 EDT Discharge Studies No [...] JC OROZCO MD on 05/15/2024 11:54 AM [facility] [id number] Nephrology Progress note Subjective Patient seen and [...] DAMARI FATIMA MD on 05/15/2024 10:53 AM [facility] [id number] Cardiology Progress note Date of Service 05/14/24 [...] JC OROZCO MD on 05/14/2024 12:36 PM [facility] [id number] Nurse Progress note Students documentation was reviewed, and all medications were verified prior to administration Digitally Signed by Ana Armijo RN on 05/14/2024 02:47 PM [facility] [id number] Cardiology Progress note Date of Service 05/14/24 [...] JC OROZCO MD on 05/14/2024 12:36 PM [facility] [id number] Nephrology Progress note Subjective Patient seen and [...] DAMARI FATIMA MD on 05/14/2024 08:26 AM [facility] [id number] Cardiology Progress note Date of Service 05/13/2024 [...] JC OROZCO MD on 05/13/2024 04:25 PM [facility] [id number] Cardiology Progress note Date of Service 05/13/2024 [...] JC OROZCO MD on 05/13/2024 04:25 PM [facility] [id number] Infectious disease Progress note Subjective Patient seen [...] STEEL BA, MD on 05/13/2024 04:38 PM [facility] [id number] Nephrology Progress note Subjective Patient seen and [...] DAMARI FATIMA MD on 05/13/2024 11:04 AM [facility] [id number] Cardiology Progress note Date of Service May [...] JC OROZCO MD on 05/12/2024 02:48 PM [facility] [id number] Cardiology Progress note Date of Service May [...] JC OROZCO MD on 05/12/2024 02:48 PM [facility] [id number] Note* Exam Date Time Procedure Performing Provider Status 05/12/24 10:45 AM Echocardiogram, Adult - CV Auth (Verified) [facility] 06-21-2024 Note DATE OF PROCEDURE: [...] reported separately. Aurelia Burgess MD BB/NTS JOB#: [id number] DICTATION ID#: [id number] Digitally Signed by AURELIA BURGESS MD on 05/11/2024 06:23 PM Digitally Signed by LAMAR PETTIT MD [facility] [id number] Note Date of Service 05/09/24 Chief Complaint Diabetic management Subjective 49-year-old male with past medical history of obesity, tobacco abuse, uncontrolled type 2 diabetes with recent A1c of 14.9, hypertension, hyperlipidemia, neuropathy, chronic kidney disease, chronic diastolic dysfunction, foreigners gangrene. Patient presented from [place] [facility] with complaints of [...] by MAGDALENE ROMO on 05/09/2024 10:56 AM [facility] [id number] Note ORIGINAL NM MYOCARDIAL SPECT STRESS/REST CLINICAL [...] AM Sign Date: 05/09/2024 3:51:58 PM Ordering Provider:[facility]06-21-2024 Note Date of Service 05/08/2024 Reason for Consultation Diabetic management Referring Physician Dr. Johnson History of Present Illness 49-year-old male with a past medical history significant for obesity, tobacco use, uncontrolled type 2 diabetes, hypertension, hyperlipidemia, neuropathy, chronic kidney disease, diastolic dysfunction [echo 04/22/2024 EF 25-30%], Claire's gangrene presented to [place] emergency department on 05/07/2024 with complaints of chest pain and was subsequently transferred to [facility] CCU. Patient wasrecently admitted from 04/16/2024-05/06/2024 for [...] placement at discharge and was sent to [facility] for less than 24 hours before returning [...] and he typically runs in the 200s. Ixvve-dp-tort glucose trends this admission: [phone]. Patient also complains of severe peripheral neuropathy [...] by MANUEL GALO on 05/08/2024 10:23 PM [facility] [id number] History and physical note Date of Service 05/08/2024 History of Present Illness Alumni Secretary : Dr. 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 On the way to the custodial on the discharge day, patient started to have chest discomfort, located in the mid chest, sometimes pressure-like and sometimes burning or aching in character, 5/10 severity, lasted for a few minutes up to 30 minutes and subsided spontaneously. Patient had recurrent ep isode of similar chest pain over the next 24 hours and therefore decided to go to [facility]. Patient was [facility] transferred [facility]. At the time of examination, [...] JUMANA WALKER MD on 05/08/2024 08:04 AM [facility] [id number] Note Date of Service 05/08/2024 Reason for Consultation Diabetic management Referring Physician Dr. Johnson History of Present Illness 49-year-old male with a past medical history significant for obesity, tobacco use, uncontrolled type 2 diabetes, hypertension, hyperlipidemia, neuropathy, chronic kidney disease, diastolic dysfunction [echo 04/22/2024 EF 25-30%], Claire's gangrene presented to [place] emergency department on 05/07/2024 with complaints of chest pain and was subsequently transferred to [facility] CCU. Patient wasrecently admitted from 04/16/2024-05/06/2024 for septic shock and acute respiratory failure secondaryto necrotizing Claire's gangrene requiring ICU level of care and mechanical ventilation. Patient required 3 extensive debridements of the scrotal and suprapubic region- 2 completed by urology and ge [facility] corporational surgery and 1 completed by plastics. Wound cultures were positive for group beta-hemolytic strep, Serratia marcescens, staph epi, lactobacillus gasseri, and enterococcus. He is to follow-up with Dr. Parnell and ID in 2-3 weeks. Patient did require SNF placement at discharge and was sent to [facility] for less than 24 hours before returning [...] and he typically runs in the 200s. Ttblp-ts-bfmn glucose trends this admission: [phone]. Patient also complains of severe peripheral neuropathy [...] by MANUEL GALO on 05/08/2024 10:23 PM [facility] [id number] Infectious disease Consult note Date of Service [...] cefdinir up until 05/18/2024. Patient presents to [place] emergency room on 05/07/2024 given complaints of [...] CIARA VIGIL MD on 05/08/2024 06:10 PM [facility] [id number] Evaluation + Plan noteExtracted from: Title:History and [...] 10:15:00 AM Scheduled Provider: Location:[facility] Appointment Type:[facility] Hospital Follow Up [facility] 06-20-2024 Note Date of Service [...] by CELSO Oneill on 05/08/2024 10:11 AM [facility] [id number] Nephrology Consult note Date of Service 05-08 [...] BARBY WEBSTER MD on 05/11/2024 07:35 AM [facility] [id number] NoteSINUS RHYTHM RIGHT BUNDLE BRANCH BLOCK Electronic Signature: LAMAR PETTIT MD 05/09/2024 09:11:04[facility] 06-20-2024 History and physical note Date of Service 05/08/2024 History of Present Illness Alumni Secretary : Dr. 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 On the way to the custodial on the discharge day, patient started to have chest discomfort, located in the mid chest, sometimes pressure-like and sometimes burning or aching in character, 5/10 severity, lasted for a few minutes up to 30 minutes and subsided spontaneously. Patient had recurrent ep isode of similar chest pain over the next 24 hours and therefore decided to go to [facility]. Patient was then transferred [facility]. At the time of examination, [...] JUMANA WALKER MD on 05/08/2024 08:04 AM [facility] [id number] Note ORIGINAL EXAMINATION: TWO XRAY VIEWS OF [...] Date: 05/08/2024 7:33:55 AM Ordering Provider: [facility]Kn[facility] [id number] Note ORIGINAL EXAMINATION: ONE XRAY VIEW OF [...] Date: 05/07/2024 11:41:47 AM Ordering Provider: JIMENA [facility]06-19-2024 NoteSinus rhythm Right bundle branch block Compared to ECG at 04/22/2024 09:09:03 BORDERLINE ECG Electronic Signature: JIMENA HOGAN DO 05/07/2024 11:00:04[facility] 06-18-2024 Nurse Progress note report called to omari wong in [place] Digitally Signed by CELSO Constantino on 05/06/2024 05:56 PM [facility] [id number] Hospital Discharge instructions Patient Education 05/06/2024 13:00:29 [...] 06/02/2015 Document Revised: 12/12/2018 Document Reviewed: 12/12/2018 SignaCert Patient Education 2020 [employer]. Follow Up Care 04/15/2024 22:37:31 With:Kalpeshemani shyanne - skilled - [phone] Address:Unknown When:1-2 days With:TELMA GUEVARA MD Address: [address] [facility] [place] [address]- When: Unknown Comments:6 weeks for repeat colonoscopy With:BERNIE HERNÁNDEZ MD, [facility] Address: [address] [place] [phone] When:1-2 days With:SON STEEL BA, MD, Infectious Disease, Infectious Disease Group Address: [facility] [place] [address] [place] [phone] When:1-2 days Comments:2-3 weeks With:GLENN THAYER MD Address: [address] [facility] [address] [facility] [place] [address]- [phone] When:5 to 7 days Comments:for ischemic evaluation With:[facility] Address: [address] [place] [address]- When:1-2 days Comments:Please follow up with Dr. Parnell in 2 weeks in the wound center With:[facility] Address: [address] [place] [phone]- When:1-2 days Comments:Call for follow up visit for wound care management With:PHOEBE ADAM Address: [address] [place] [address]- Business (1) When:1-2 days [facility] 06-18-2024 Progress note Date of [...] 0.5% topical solution), 1 artemio, Perineum, BID [employer] Diet(ADA Diet), 05/05/24 16:29:00 EDT, [...] the patient wants to go to a custodial which he can be followed up there with dressing changes with Dakin's solution twice a day and patient will require follow-up at the wound clinicin about 2 to 3 weeks once patient is evaluated appears clean he may require some skin grafting procedure on the penis as well as in the scrotal area. Digitally Signed by FRANCESCA PARNELL MD on 05/06/2024 01:15 PM [facility] [id number] Note Discharge Instructions Thank you for allowing [facility] to assist you with your healthcare needs. The following is importantdischarge information regarding your hospital visit. Your Care Team PHOEBE ADAM APRN-FOUNDER / CEO Your Diagnosis A-fib Acute respiratory failure GENE (acute kidney injury) Anemia Diabetes mellitus Claire gangrene Obesity Septic shock What to do next Follow Up Appointments Follow Up with Omari Wong - [facility] - [phone] When:Within 1-2 days Follow Up with TELMA GUEVARA MD Where:[address] [place] [address]- Additional Information: 6 weeks for repeat colonoscopy Follow Up with BERNIE HERNÁNDEZ MD, [facility] When:Within 1-2 days Where:[address] [facility] [address] [place] [address]- [phone] Follow Up with SON STEEL BA, MD, Infectious Disease, Infectious Disease Group When:Within 1-2 days Where:[facility] [place] [address] [place] [phone] Additional Information: 2-3 weeks Follow Up with GLENN THAYER MD When:Within 5 to 7 days Where:[address] [facility] [address] [facility] [place] [address]- [phone] Additional Information: for ischemic evaluation Follow Up with [facility] When:Within 1-2 days Where:[address] [place] [address]- Additional Information: Please follow up with Dr. Parnell in 2 weeks in the wound center Follow Up with [facility] When:Within 1-2 days Where:[address] [place] [address]- Additional Information: Call for follow up visit for wound care management Follow Up with PHOEBE ADAM When:Within 1-2 days Where:[address] [facility] [place] [address]- Business (1) The Following Activity and Diet [...] 1-3 days, Results Notify to: PHOEBE ADAM DIRECTOR OF OPERATIONS- FOUNDER / CEO, 05/06/24 11:34:00 EDT Discharge Radiology No qualifying [...] days, Results Notify to: PHOEBE ADAM APRN- FOUNDER / CEO, 05/06/24 11:34:00 EDT Transfer of Care Orders [...] may report side effects to FDA at [phone]. What other drugs will affect acetaminophen? Other drugs may affect acetaminophen, including prescription and hidu-hsp-mmqtbzw medicines, vitamins, and herbal products. Tell your [...] to ensure that the information provided by [employer]. ('Multum') is accurate, up-to-date, and complete, but no guarantee is made to that effect. Drug information contained herein may be time sensitive. [employer] information has been compiled for use by healthcare practitioners and consumers in the [place] and therefore [employer] does not warrant that uses outside of the [place] are appropriate, unless specifically indicated otherwise. dELiAsAptanas drug information does not endorse drugs, diagnose patients or recommend therapy. dELiAsAptanas drug information isan informational resource designed to [...] effective or appropriate for any given patient. [facility] does not assume any responsibility for any aspect of healthcare administered with the aid of information [employer] provides. The information contained herein is not intended to cover all possible uses, directions, precautions, warnings, drug interactions, allergic reactions, or adverse effects. If you have questions about the drugs you are taking, check with your doctor, nurse or pharmacist. Copyright 0540-2473 [facility] [employer]. Version: .. Revision Date: 12/04/2023. Education Materials [...] 06/02/2015 Document Revised: 12/12/2018 Document Reviewed: 12/12/2018 ElseCost Effective Data Patient Education 2020 Sign[employer]Cert Inc. Additional Information VACCINATE! IT SAVES LIVES! Members of the community who have not yet received the COVID-19 vaccine and would like to receive it can visit one of [facility] vaccine clinics. There are many vaccine clinic locations within the [facility]. For locations and available times, please visit https://gettheshot.coronavirus.[place].gov/. It is important to note that some COVID mobile vaccine clinics are held outdoors and may be canceled in rainy or stormy conditions. To learn more about pediatric vaccinations (ages 5-11), we invite you to visit the [facility] webpage. https://www.[facility].org/pages/8029-Jetmq-Bhujmiwzgxb-Rfakldeuhb-Fyvfk-Jez stions.htmlTo learn more about the COVID-19 vaccine, we invite you to visit the CDC website for a list of frequently asked questions.https://www.cdc.gov/coronavirus/2019-ncov/vaccines/faq.html [facility] Patient Portal Access Instructions: Stay connected with your healthcare team and access your personal medical information anytime with the [facility] Patient Portal. Please follow the directions below to create your [facility] account: 1.Access the email account you provided upon registration to the hospital/physician office.2.Look for an invitation email from [facility].3.Open the email and access the invitation link: AcceptInvitation to [facility].4.Fill in the required nguyen to create your account. To access your account, visit [email or web address]. Click the blue button labeled Access Patient Portal and then log in with the username and password that you created in the steps above. You will be able to view your test results, lab results, a summary of your visits, upcoming appointments and more. There is also a convenient messaging option where you can send secure messages to your Twicketervider. In addition, you will have the ability to download any documents or summaries to your computer and/or send the information securely to a physician. Remember that your healthcare information is confidential, so carefully consider who you will allowto register on the [facility] Patient Portal for access to your information. You can also access the [facility] Patient Portal on the [facility] artemio. Simply click on Patient Portal and then log into your account. If you would like to receive a full copy of your medical records, please contact the [facility] Medical Records Department by calling [phone], Sunday through Sunday between 8 a.m. and [...] Call your local pharmacy or go to http://[employer]yvrose/0E1Lz0s to find one close to you.3.Make use of household items: Use cat litter or old coffee grounds to dispose medications if other options arenot available. Mix your drugs with these household products, seal them in an airtight container andthrow it into the garbage. Call [facility]: [phone] to be sure your drugs can be [...] aware that I should contact my doctor. 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 Signature: Date/Time: Relationship to Patient: Witness Name/Signature: Date/Time: [facility] [id number] Discharge summary Date of Service 05-06-2024 Discharge Diagnosis 1. Acute respiratory failure 2. Septic shock 3. Claire gangrene 4. GENE (acute kidney injury) 5. Diabetes mellitus 6. Anemia 7. A-fib 8. Obesity Additional Orders: Ordered: Dakins Half Strength 0.25% topical solution,Apply 1 artemio, Topical, BID, 0 Refill(s), Soln, 125 Ordered: Discharge,05/06/24 11:34:00 EDT, Discharged to: Assisted Facility Ordered: Discharge Blood Glucose Monitoring,When to [...] 1-3 days, Results Notify to: PHOEBE ADAM APRN-FOUNDER / CEO, 05/06/24 11:34:00 EDT Ordered: Transfer of Care [...] Date: April 24, 2024 Verified By: Contributor_system, Tradono CLINICAL STATEMENT: IMPRESSION: 1. Right lower lobe consolidation with moderate bilateral effusions.2. No acute intra-pathology however evaluation is limited without IV contrast3. Anterior abdominal wall surgical wound. CT Thorax w/o Contrast Result Date: April 24, 2024 Verified By: Contributor_system, Tradono CLINICAL STATEMENT: IMPRESSION: Right lower lobe consolidation [...] Up Follow Up with Omari Wong - [facility] - [phone] When:Within 1-2 days Follow Up with TELMA GUEVARA MD Where:[address] [place] [place] [address]- Additional Information: 6 weeks for repeat colonoscopy Follow Up with BERNIE HERNÁNDEZ MD, [facility] When:Within 1-2 days Where:[address] [facility] [address] [place] [address]- [phone] Follow Up with SON STEEL BA, MD, Infectious Disease, Infectious Disease Group When:Within 1-2 days Where:[facility] [place] [address] [place] [address]- [phone] Additional Information: 2-3 weeks Follow Up with GLENN THAYER MD When:Within 5 to 7 days Where:[address] [facility] [address] [facility] [place] [address]- [phone] Additional Information: for ischemic evaluation Follow Up with [facility] When:Within 1-2 days Where:[address] [place] [address]- Additional Information: Please follow up with Dr. Parnell in 2 weeks in the wound center Follow Up with [facility] When:Within 1-2 days Where:[address] [place] [address]- Additional Information: Call for follow up visit for wound care management Follow Up with PHOEBE ADAM When:Within 1-2 days Where:[address] [place] [address]- Business (1) Follow Up Appointments Transfer of [...] days, Results Notify to: PHOEBE ADAM APRN- FOUNDER / CEO, 05/06/24 11:34:00 EDT Discharge Studies No Follow-up Studies Discharge Diet Transfer of Care Diet - Ordered -- Type of Diet: Regular Diet, 05/06/24 11:34:00 EDT Discharge Activity Transfer of Care Activity - Ordered -- Activity As Tolerated, 05/06/24 11:34:00 EDT Condition on Discharge stable Discharge Disposition [facility] Jonn Information Provided To patient Time Spent A total of 35 minutes reviewing patient's diagnostic, labs/tests, seeing and examining the patient and documenting in the medical record, please see assessment for further details. Digitally Signed by MY DUTTON APRN-REGULATORY AFFAIRS INTERN on 05/06/2024 12:51 PM [facility] [id number] Note Discharge Instructions Thank you for allowing [facility] to assist you with your healthcare needs. The following is importantdischarge information regarding your hospital visit. Your Care Team PHOEBE ADAM APRN-FOUNDER / CEO Your Diagnosis A-fib Acute respiratory failure GENE (acute kidney injury) Anemia Diabetes mellitus Claire gangrene Obesity Septic shock What to do next Follow Up Appointments Follow Up with Omari Wong - [facility] - [phone] When:Within 1-2 days Follow Up with TELMA GUEVARA MD Where:[address] [place] [address]- Additional Information: 6 weeks for repeat colonoscopy Follow Up with BERNIE HERNÁNDEZ MD, [facility] When:Within 1-2 days Where:[address] [facility] [address] [place] [phone] Follow Up with SON STEEL BA, MD, Infectious Disease, Infectious Disease Group When:Within 1-2 days Where:[facility] [place] [address] [place] [address]- [phone] Additional Information: 2-3 weeks Follow Up with GLENN THAYER MD When:Within 5 to 7 days Where:[address] [facility] [address] [facility] [place] [address]- [phone] Additional Information: for ischemic evaluation Follow Up with [facility] When:Within 1-2 days Where:[address] [place] [address]- Additional Information: Please follow up with Dr. Parnell in 2 weeks in the wound center Follow Up with [facility] When:Within 1-2 days Where:[address] [place] [address]- Additional Information: Call for follow up visit for wound care management Follow Up with PHOEBE ADAM When:Within 1-2 days Where:[address] [place] [address]- Business (1) The Following Activity and Diet [...] days, Results Notify to: PHOEBE ADAM APRN- FOUNDER / CEO, 05/06/24 11:34:00 EDT Discharge Radiology No qualifying [...] 1-3 days, Results Notify to: PHOEBE ADAM FOUNDER / CEO, 05/06/24 11:34:00 EDT Transfer of Care Orders [...] to receive it can visit one of [facility] vaccine clinics. There are many vaccine clinic locations within the [facility]. For locations and available times, please visit [email or web address] It is important to note that some COVID mobile vaccine clinics are held outdoors and may be canceled in rainy or stormy conditions. To learn more about pediatric vaccinations (ages 5-11), we invite you to visit the [facility] webpage. [email or web address] learn more about the COVID-19 vaccine, we invite you to visit the CDC website for a list of frequently asked questions.https://www.cdc.gov/coronavirus/2019-ncov/vaccines/faq.html [employer] Patient Portal Access Instructions: Stay connected with your healthcare team and access your personal medical information anytime with the [employer] Patient Portal. Please follow the directions below to create your [employer] account: 1.Access the email account you provided upon registration to the hospital/physician office.2.Look for an invitation email from [facility].3.Open the email and access the invitation link: AcceptInvitation to [facility].4.Fill in the required nguyen to create your account. To access your account, visit [email or web address]. Click the blue button labeled Access Patient [...] who you will allowto register on the [facility] Patient Portal for access to your information. You can also access the [facility] Patient Portal on the [facility] artemio. Simply click on Patient Portal and then log into your account. If you would like to receive a full copy of your medical records, please contact the [facility] Medical Records Department by calling [phone], Sunday through Sunday between 8 a.m. and [...] Call your local pharmacy or go to http://bit.ly/9W8Ue4q to find one close to you.3.Make use of household items: Use cat litter or old coffee grounds to dispose medications if other options arenot available. Mix your drugs with these household products, seal them in an airtight container andthrow it into the garbage. Call [facility]: [phone] to be sure your drugs can be [...] aware that I should contact my doctor. 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 Signature: Date/Time: Relationship to Patient: Witness Name/Signature: Date/Time: [facility] [id number] Anesthesiology Consult note Patient: JOVANI GURINDER Raza [...] TU JHA MD on 05/05/2024 06:52 PM [facility] [id number] Anesthesiology Consult note Patient: GURINDER HAHN Age: [...] Problem list: Medical Diabetes / SNOMED CT 134083033 / Confirmed GERD (gastroesophageal reflux disease) / SNOMED CT 685161166 / Confirmed High cholesterol / SNOMED CT 01226125 / Confirmed, Active Problems (6) Diabetes GERD (gastroesophageal reflux disease) Gout High cholesterol Neuropathy Tobacco use Histories Past Medical History: Active Diabetes (705907360) Family History: Patient was adopted. Alcohol abuse Father Diabetes Father Procedure history: Testicle ([id number]) in 1992 at 18 Years. 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 Comments: 03/08/2024 17:11 CELSO Mendez A Right [...] Oral36.8 DegC (MAY 05 06:54) Heart Rate Ailvnn15 bpm (MAY 05 08:49) SBPH 147 mmHg [...] No Transport Mode Order Detail Patient bed Commissions Manager Details Form Commissions Manager Details Form 05/05/2024 10:31 EDT Individuals Taught Patient Learning Readiness Willing to learn Barriers to Learning None evident Teaching Method Explanation Preferred Spoken Language Greek Preferred Written Language Greek Diagnostic Procedures Education Preprocedure/surgical instructions Teaching Evaluation [...] intact Skin Turgor Non-Elastic Mucous Membrane Color [place] Mucous Membrane Description Moist Sensory Perception Costa [...] evident Teaching Method Explanation Preferred Spoken Language Greek Preferred Written Language Greek Incision/Wound Education Dressing changes, Other: The importance [...] Type 0-10 Pain scale Nail Bed Color [place] Capillary Refill < 2 seconds Dorsalis Pedis [...] intact Skin Turgor Non-Elastic Mucous Membrane Color [place] Mucous Membrane Description Moist Sensory Perception Costa [...] Alert Aspiration Risk None Eye Opening Response [place] Spontaneously Best Motor Response [place] Obeys simple commands Best Verbal Response Bo Oriented [place] Coma Score 15 GRAY Yes Left Pupil [...] evident Teaching Method Explanation Preferred Spoken Language Greek Preferred Written Language Greek Diagnostic Procedures Education Postprocedure/surgical instructions Teaching Evaluation Needs reinforcement 05/04/2024 9:00 EDT losartan 25 mg mg 05/04/2024 8:43 EDT Apical Heart Rate 88 bpm Reason For Taking VItal Signs Routine Primary Pain Intensity 0 Primary Pain Nonverbal Response Nods No Pain Scale Type 0-10 Pain scale Nail Bed Color [place] Capillary Refill < 2 seconds Heart Sounds [...] intact Skin Turgor Non-Elastic Mucous Membrane Color [place] Mucous Membrane Description Moist Sensory Perception Costa [...] HI Sodium L (more content not included)... [facility] [id number] Note Date of Service 05-05-2024 Chief Complaint [...] by MY DUTTON on 05/05/2024 10:39 AM [facility] [id number] Note Date of Service 04/24/1624 Chief Complaint [...] by MY DUTTON on 05/04/2024 02:08 PM [facility] [id number] Nephrology Progress note Subjective Patient seen and [...] DAMARI FATIMA MD on 05/04/2024 12:45 PM [facility] [id number] Urology Progress note Date of Service 05/04/2024 [...] RUBY GEE MD on 05/04/2024 10:03 AM [facility] [id number] Note Date of Service 05-03-2024 Chief Complaint [...] arrangements, pre-CERT still pending as discussed with hospital social worker today. Discussed w/ Dr. Love Time Spent A total of 35 minutes reviewing patient's diagnostic, labs/tests, seeing and examining the patient and documenting in the medical record, please see assessment for further details. Digitally Signed by MY DUTTON on 05/03/2024 01:21 PM [facility] [id number] Note Date of Service 05-03-2024 Chief Complaint [...] Date: April 24, 2024 Verified By: Contributor_system, Tradono CLINICAL STATEMENT: IMPRESSION: 1. Right lower lobe consolidation with moderate bilateral effusions.2. No acute intra-pathology however evaluation is limited without IV contrast3. Anterior abdominal wall surgical wound. CT Thorax w/o Contrast Result Date: April 24, 2024 Verified By: Contributor_system, Tradono CLINICAL STATEMENT: IMPRESSION: Right lower lobe consolidation [...] arrangements, pre-CERT still pending as discussed with hospital social worker today. Discussed w/ Dr. Love Time Spent A total of 35 minutes reviewing patient's diagnostic, labs/tests, seeing and examining the patient and documenting in the medical record, please see assessment for further details. Digitally Signed by MY DUTTON on 05/03/2024 01:21 PM [facility] [id number] Nephrology Progress note Subjective Seen and examined [...] DAMARI FATIMA MD on 05/03/2024 10:12 AM [facility] [id number] Progress note Date of Service May 02, [...] Obesity Septic shock Orders: Kerlix Soft Bandage ([id number]), 05/02/24 11:08:00 EDT, Stat, Quantity 4, Weight: 125, 05/02/24 11:08:00 EDT I plan to do surgical debridement on Sunday at 9:30 in the morning in the operating room I would recommend a surgical clearance from the medical service. Patient can be discharged to a custodial. Digitally Signed by FRANCESCA PARNELL MD on 05/02/2024 11:43 AM [facility] [id number] Urology Progress note Date of Service 05/02/2024 [...] RUBY GEE MD on 05/02/2024 11:43 AM [facility] [id number] Nephrology Progress note Date of Service May [...] GABRIELA LOTT MD on 05/02/2024 08:35 AM [facility] [id number] Progress note Date of Service May 01, [...] FRANCESCA PARNELL MD on 05/01/2024 11:31 AM [facility] [id number] Infectious disease Progress note Subjective Patient seen [...] STEEL BA, MD on 04/30/2024 05:35 PM [facility] [id number] Cardiology Progress note Date of Service 04/29/2024 [...] KIRILL PARNELL MD on 04/29/2024 10:57 AM [facility] [id number] Cardiology Progress note Date of Service 04/29/2024 [...] KIRILL PARNELL MD on 04/29/2024 10:57 AM [facility] [id number] Note Date of Service 04/29/24 Subjective 48-year-old [...] VIRIDIANA WILLIAM MD on 04/29/2024 10:19 AM [facility] [id number] Cardiology Progress note Date of Service 04/28/2024 [...] KIRILL PARNELL MD on 04/28/2024 04:09 PM [facility] [id number] Infectious disease Progress note Subjective Patient seen [...] STEEL BA, MD on 04/28/2024 05:48 PM [facility] [id number] Cardiology Progress note Date of Service 04/28/2024 [...] KIRILL PARNELL MD on 04/28/2024 04:09 PM [facility] CenterSufwrmmr96-95-3050 Note Date of Service 04/28/2024 Subjective 48-year-old [...] VIRIDIANA WILLIAM MD on 04/28/2024 09:41 AM [facility] [id number] Note ORIGINAL EXAMINATION: ONE XRAY VIEW OF [...] Sign Date: 04/28/2024 5:53:42 AM Ordering Provider: [facility]06-09-2024 Cardiology Progress note Date of Service [...] No, Diabetes: Yes, : N/A, Wt k, [facility], CCU Acute on chronic systolic heart failure [...] later Discussed with Dr. Jamie Wiggins MD Manager Of Human Resources Messenger artemio or Pager [phone] Digitally Signed by POLY WIGGINS MD on 04/27/2024 02:49 PM [facility] [id number] Note ORIGINAL EXAMINATION: ONE XRAY VIEW OF [...] Sign Date: 04/27/2024 11:53:52 AM Ordering Provider: [facility]06-09-2024 Cardiology Progress note Date of Service 04/27/2024 [...] No, Diabetes: Yes, : N/A, Wt k, [facility], CCU Acute on chronic systolic heart failure [...] later Discussed with Dr. Jamie Wiggins MD Manager Of Human Resources Messenger artemio or Pager [phone] Digitally Signed by POLY WIGGINS MD on 04/27/2024 02:49 PM [facility] [id number] Infectious disease Progress note Date of Service [...] Date: April 24, 2024 Verified By: Contributor_system, Tradono CLINICAL STATEMENT: IMPRESSION: 1. Right lower lobe consolidation with moderate bilateral effusions.2. No acute intra-pathology however evaluation is limited without IV contrast3. Anterior abdominal wall surgical wound. CT Thorax w/o Contrast Result Date: April 24, 2024 Verified By: Contributor_system, Tradono CLINICAL STATEMENT: IMPRESSION: Right lower lobe consolidation [...] CIARA VIGIL MD on 04/27/2024 10:02 AM [facility] [id number] Note Date of Service 04/27/2024 day # [...] JOAN MCKEON MD on 04/27/2024 08:42 AM [facility] [id number] Anesthesiology Consult note Patient: GURINDER HAHN Age: [...] 17:35 EDT Apical Heart Rate 112 bpm [place] 04/25/2024 17:23 EDT Heart Rate Monitored 117 [...] GURINDER DELACRUZ MD on 04/26/2024 08:42 AM [facility] [id number] Note Date of Service 04/26/24 Procedure Name [...] DALE BOLAÑOS MD on 04/26/2024 08:38 AM [facility] [id number] Gastroenterology Consult note Date of Service 04/25/2024 [...] Date: April 24, 2024 Verified By: Contributor_system Wiki-PRAllison CLINICAL STATEMENT: IMPRESSION: Right lower lobe consolidation [...] AJ GILLIAM PA-C on 04/25/2024 01:33 PM [facility] [id number] Gastroenterology Consult note Date of Service 04/25/2024 [...] splenomegaly or hepatomegaly. Brown/migel colored stool on MRAIBEL. Skin: Warm and dry. No pallor or [...] Date: April 24, 2024 Verified By: Contributor_system Wiki-PRAllison CLINICAL STATEMENT: IMPRESSION: Right lower lobe consolidation [...] AJ GILLIAM PA-C on 04/25/2024 01:33 PM [facility] [id number] Note ORIGINAL EXAMINATION: CT OF THE ABDOMEN [...] Sign Date: 04/24/2024 6:05:02 PM Ordering Provider: [facility]06-06-2024 Note ORIGINAL EXAMINATION: CT OF THE CHEST [...] Sign Date: 04/24/2024 6:13:39 PM Ordering Provider: [facility]06-06-2024 Consult note Date of Service 04/24/2024 Reason for Consultation Open wound of the scrotum penis and mons History of fourniers disease Diabetes mellitus type 2 Referring Physician Semaphore Operator History of Present Illness Is diabetic which [...] FRANCESCA PARNELL MD on 04/24/2024 10:47 AM [facility] [id number] Note Reason for Consultation Admission From: Home [...] CELSO Olivas February on 04/24/2024 10:13 AM [facility] [id number] Urology Progress note Date of Service 04/24/2024 [...] BERNIE HERNÁNDEZ MD on 04/24/2024 08:48 AM [facility] [id number] Urology Consult note Date of Service 04/23/2024 [...] BERNIE HERNÁNDEZ MD on 04/23/2024 02:17 PM [facility] [id number] Cardiology Consult note Reason for Consultation Atrial [...] rates less than 110. Given his elevated [id number], we recommend initiation of anticoagulation judiciously with [...] NATASHA VILA MD on 04/22/2024 07:57 PM [facility] [id number] Note* Exam Date Time Procedure Performing Provider Status 04/22/24 6:03 PM Echocardiogram, Adult - CV Auth (Verified) [facility] 06-04-2024 Note ORIGINAL EXAMINATION: ONE [...] Milvia Cali MD Preliminary Report By: Milvia Cali MD Electronically signed By Milvia Cali MD Dictated Date: 04/22/2024 9:52:04 AM Prelim Date: 04/22/2024 9:56:48 AM Sign Date: 04/22/2024 9:56:48 AM Ordering Provider: BRIDGETTE MORGANUniversity Hospitals Parma Medical [id number] NoteATRIAL FLUTTER WITH 2:1 CONDUCTION Right bundle branch block ST depr, consider ischemia, inferior leads Electronic Signature: EVAN LOZANO MD 04/23/2024 18:12:[address] [place] [address] 06-04-2024 Note* Exam Date Time Procedure Performing Provider Status 04/22/24 6:27 AM VL Venous US/Doppler Both Legs(for DVT) Auth (Verified) [facility] 06-03-2024 NoteAtrial fibrillation Paired ventricular premature complexes Right bundle branch block Electronic Signature: JORDAN MONAE MD 04/22/2024 08:01:54[facility] 06-03-2024 NoteSinus tachycardia RBBB and LPFB Electronic Signature: JORDAN MONAE MD 04/22/2024 07:53:55[facility] 06-03-2024 Note Date of Service [...] water Buttock Right - Pressure Area Description: [place] edges 10%, Edges , Necrotic tissue, escharsoft [...] Barrier cream Present For Wound 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 Digitally Signed by MELA TILLAMN on 04/20/2024 11:29 AM [facility] [id number] Infectious disease Consult note Date of Service [...] STEEL BA, MD on 04/20/2024 01:31 PM [facility] [id number] Note ORIGINAL EXAMINATION: ONE XRAY VIEW OF [...] with mild basilar atelectasis. Interpreted by: Antonio iLndsey MD Preliminary Report By: Antonio Lindsey MD Electronically signed By Antonio Lindsey MD Dictated Date: 04/20/2024 6:37:09 AM Prelim Date: 04/20/2024 6:38:24 AM Sign Date: 04/20/2024 6:38:24 AM Ordering Provider: [facility]06-01-2024 [facility] Progress note Date of Service [...] why the patient's leukocytosis continues to rise. [place] dressing changes per urology. Continue triple antibiotics for now. Supportive care and continue to monitor CBC. Digitally Signed by CHRISTINA YADAV MD on 04/19/2024 10:49 AM [facility] [id number] [facility] Progress note Date of Service [...] WILLA RODARTE MD on 04/18/2024 09:22 AM [facility] [id number] NoteSinus or ectopic atrial tachycardia Right bundle branch block Electronic Signature: NICOLASA SAINI MD 04/19/2024 17:01:04[facility] 05-30-2024 Note ORIGINAL EXAMINATION: ONE [...] Date: 2024 7:09:39 PM Ordering Provider: [facility]IR[facility] PADRONKn[facility] [id number] Note If ancillary studies were utilized, the following Laboratory Developed Test (LDT) disclaimer will apply: Under CLIA requirements, [facility] is qualified to perform high complexity testing. For all ancillary stains, positive and negative controls stain appropriately. Performance characteristics of immunohistochemical and chromogenic in-situ hybridization tests have been determined by [facility]. These tests are used for clinical purposes, They should not be regarded as investigational or for research. [facility] 05-30-2024 Note ORIGINAL EXAMINATION: ONE [...] Date: 2024 6:09:02 AM Ordering Provider: TUYET REISUniversity Hospitals Parma Medical [id number] Nurse Progress note In a search for NOK today, I was told there was an aunt Rosa and Uncle Huseyin Yoon in [facility].[phone] I called and left a message to please call us back regarding Gurinder, who is a patient in the ICU here. I was also given a name of a brother, Carmelo Benitez in [facility]. I did an onlinepeople finders search which tuned up 5 Carmelo Benitezs near [facility]. 2 were disconnected, one wrong number, and one was the wrong Carmelo, and I left a voicemail for the 5th one to please call us. Digitally Signed by CELSO Gomez on 04/16/2024 02:24 PM [facility] [id number] Evaluation + Plan noteExtracted from: Title:History and Physical Author:WILY CARMEN APRN-REGULATORY AFFAIRS INTERN Date:04/16/24 1. Claire's gangrene with significant leukocytosis [...] for GI prophylaxis Case discussed with on-call general surgery physician assistant Dr. Mckeon Addendum by EMANUEL MALHOTRA MD [...] was recommended that he go to a half-way facility for rehab however he declined and eventually left AMA. He then came back to [facility] 04/06/2024 with penile pain and swelling and was diagnosed with balanitis and discharged on topical clotrimazole cream. He came back to [facility] 04/15/2024 with worsening penile pain and [...] work of breathing. He was transferred to [facility] ICU for further management and urologic evaluation [...] * Culture Respiratory with Gram Stain 04/25/24 [facility] 05-29-2024 Surgery Consult note Date of Service 04/16/2024 Reason for Consultation Fourniers gangrene Referring Physician Semaphore Operator History of Present Illness This is a split shared visit between myself and Dr. Rodarte This patient was a 48-year-old male with a past medical history significant for uncontrolled type 2diabetes, hypercholesterolemia, and GERD who presented to the [place] emergency department on 04/15/2024 with complaints of [...] the emergency department and was transferred to [facility] for further care/management. He was [...] a 48-year-old male who was transferred to [facility] after he presented to the [facility] emergency department on 04/15/2024 with scrotal edema, penile pain, and concern for necrosis. He also had additional complaints of nausea and vomiting. He was electively intubated inthe emergency department secondary to increased work of breathing. On arrival to [facility] he was evaluated by the [...] antibiotic administration Critical care management per the general surgery physician assistant At this time, there are no plans [...] by AKIRA NORMAN on 04/16/2024 12:15 PM [facility] [id number] Surgery Consult note Date of Service 04/16/2024 Reason for Consultation Fourniers gangrene Referring Physician Semaphore Operator History of Present Illness This is a split shared visit between myself and Dr. Rodarte This patient was a 48-year-old male with a past medical history significant for uncontrolled type 2diabetes, hypercholesterolemia, and GERD who presented to the [place] emergency department on 04/15/2024 with complaints of [...] the emergency department and was transferred to [facility] for further care/management. He was [...] a 48-year-old male who was transferred to [facility] after he presented to the [facility] emergency department on 04/15/2024 with scrotal edema, penile pain, and concern for necrosis. He also had additional complaints of nausea and vomiting. He was electively intubated inthe emergency department secondary to increased work of breathing. On arrival to [facility] he was evaluated by the [...] antibiotic administration Critical care management per the general surgery physician assistant At this time, there are no plans [...] by AKIRA NORMAN on 04/16/2024 12:15 PM [facility] [id number] Surgery Consult note Date of Service 04/16/2024 Reason for Consultation Fourniers gangrene Referring Physician Semaphore Operator History of Present Illness This is a split shared visit between myself and Dr. Rodarte This patient was a 48-year-old male with a past medical history significant for uncontrolled type 2diabetes, hypercholesterolemia, and GERD who presented to the [place] emergency department on 04/15/2024 with complaints of [...] the emergency department and was transferred to [facility] for further care/management. He was [...] a 48-year-old male who was transferred to [facility] after he presented to the [facility] emergency department on 04/15/2024 with scrotal edema, penile pain, and concern for necrosis. He also had additional complaints of nausea and vomiting. He was electively intubated inthe emergency department secondary to increased work of breathing. On arrival to [facility] he was evaluated by the [...] antibiotic administration Critical care management per the general surgery physician assistant At this time, there are no plans [...] by AKIRA NORMAN on 04/16/2024 12:15 PM [facility] [id number] Note If ancillary studies were utilized, the following Laboratory Developed Test (LDT) disclaimer will apply: Under CLIA requirements, [facility] is qualified to perform high complexity testing. For all ancillary stains, positive and negative controls stain appropriately. Performance characteristics of immunohistochemical and chromogenic in-situ hybridization tests have been determined by [facility]. These tests are used for clinical purposes, They should not be regarded as investigational or for research. [facility] 05-29-2024 Note If ancillary studies were utilized, the following Laboratory Developed Test (LDT) disclaimer will apply: Under CLIA requirements, [facility] is qualified to perform high complexity testing. For all ancillary stains, positive and negative controls stain appropriately. Performance characteristics of immunohistochemical and chromogenic in-situ hybridization tests have been determined by [facility]. These tests are used for clinical purposes, They should not be regarded as investigational or for research. [facility] 05-29-2024 Note If ancillary studies were utilized, the following Laboratory Developed Test (LDT) disclaimer will apply: Under CLIA requirements, [facility] is qualified to perform high complexity testing. For all ancillary stains, positive and negative controls stain appropriately. Performance characteristics of immunohistochemical and chromogenic in-situ hybridization tests have been determined by [facility]. These tests are used for clinical purposes, They should not be regarded as investigational or for research. [facility] 05-29-2024 Note If ancillary studies were utilized, the following Laboratory Developed Test (LDT) disclaimer will apply: Under CLIA requirements, [facility] is qualified to perform high complexity testing. For all ancillary stains, positive and negative controls stain appropriately. Performance characteristics of immunohistochemical and chromogenic in-situ hybridization tests have been determined by [facility]. These tests are used for clinical purposes, They should not be regarded as investigational or for research. [facility] 05-29-2024 Note If ancillary studies were utilized, the following Laboratory Developed Test (LDT) disclaimer will apply: Under CLIA requirements, [facility] is qualified to perform high complexity testing. For all ancillary stains, positive and negative controls stain appropriately. Performance characteristics of immunohistochemical and chromogenic in-situ hybridization tests have been determined by [facility]. These tests are used for clinical purposes, They should not be regarded as investigational or for research. [facility] 05-29-2024 Note If ancillary studies were utilized, the following Laboratory Developed Test (LDT) disclaimer will apply: Under CLIA requirements, [facility] is qualified to perform high complexity testing. For all ancillary stains, positive and negative controls stain appropriately. Performance characteristics of immunohistochemical and chromogenic in-situ hybridization tests have been determined by [facility]. These tests are used for clinical purposes, They should not be regarded as investigational or for research. [facility] 05-29-2024 History and physical note [...] therapy was recommended to be discharged to half-way facility for rehabilitation and strengthening which he declined and was discharged AMA. He was also evaluated at [facility] emergency department on 04/06/2024 with penile pain and swelling. He was diagnosed with balanitis and discharged with topical clotrimazole cream. Patient Marley presented to [facility] ER 04/15/2024 with complaints of increased [...] was transferred to the surgical ICU at [facility] under medicine service for evaluation and [...] for GI prophylaxis Case discussed with on-call general surgery physician assistant Dr. Mckeon Problem List/Past Medical History Ongoing [...] MARIA ELENA CARMEN on 04/16/2024 02:29 AM [facility] [id number] Nephrology Consult note Date of Service 04/16/2024 [...] CHELA CHAPARRO DO on 04/16/2024 08:59 AM [facility] [id number] Procedure note Date of Service 04/16/2024 Procedure [...] Assessment/Plan Orders: Central Venous Catheter Bundle Kit ([id number]) ([id number])(CVC Bundle Kit ([id number]) ([id number])), 04/16/24 5:03:00 EDT, Stat, Quantity 1, Weight: 125, 04/16/24 5:03:00 EDT XR Chest 1 View (Portable)(Chest XR 1 View (Portable)), 04/16/24 4:52:00 EDT, 04/16/24 4:52:00 EDT,Stat, central line placed, Full code, Portable: Yes, Wheelchair Staff Member, Isolation: None, IV: Yes, Oxygen: No, Diabetes: Yes, : N/A, Wt k, [facility], SICU Digitally Signed by ELENA GONZALEZ on 04/16/2024 05:25 AM [facility] [id number] Note ORIGINAL EXAMINATION: ONE XRAY VIEW OF [...] Sign Date: 04/16/2024 5:34:43 AM Ordering Provider: [facility]05-29-2024 NoteSinus rhythm RIGHT BUNDLE BRANCH BLOCK INFERIOR MYOCARDIAL INFARCTION, POSSIBLY ACUTE WARNING: DATA QUALITY MAY AFFECT INTERPRETATION Electronic Signature: NGOC MIN MD 04/16/2024 09:51:56[facility] 05-29-2024 Urology Consult note Date of Service 04/16/2024 Reason for Consultation Claire's gangrene Referring Physician Maria Elena Carmen DIRECTOR OF OPERATIONS-[facility] History of Present Illness This is a 48y/o M w/ HTN, HL, DM2 w/ neuropathy, and tobacco use who presented to [place] ER overnight w/ a swollen, black scrotum, [...] clinda. Of note, he was admitted at [place] from 03/08-03/11 with weakness and falls. A1c [...] personally reviewed the labs and imaging from [place] as per HPI. Assessment/Plan Claire's Gangrene: -- [...] KAYLEEN BERNAL MD on 04/16/2024 02:24 AM [facility] [id number] Note ORIGINAL EXAMINATION: ONE XRAY VIEW OF [...] Antonio Lindsey MD Electronically signed By Antonio Lindsye MD Dictated Date: 04/16/2024 2:12:26 AM Prelim Date: 04/16/2024 2:14:27 AM Sign Date: 04/16/2024 2:14:27 AM Ordering Provider: MARIA ELENA CARMENUniversity [facility]als [facility] Medical [id number] History and physical note Date of Service [...] therapy was recommended to be discharged to half-way facility for rehabilitation and strengthening which he declined and was discharged AMA. He was also evaluated at [facility] emergency department on 04/06/2024 with penile pain and swelling. He was diagnosed with balanitis and discharged with topical clotrimazole cream. Patient Marley presented to [facility] ER 04/15/2024 with complaints of increased [...] was transferred to the surgical ICU at [facility] under medicine service for evaluation and [...] for GI prophylaxis Case discussed with on-call general surgery physician assistant Dr. Mckeon Problem List/Past Medical History Ongoing [...] MARIA ELENA CARMEN on 04/16/2024 02:29 AM [facility] [id number] Note ORIGINAL EXAMINATION: ONE XRAY VIEW OF [...] Date: 04/16/2024 12:21:49 AM Ordering Provider: [facility] Note Sinus tachycardia Right bundle branch block Electronic Signature: MARTÍNEZ ACUNA MD 04/15/2024 22:35:[address] [place] [address] 05-28-2024 Note ORIGINAL EXAMINATION: CT OF THE [...] Sign Date: 04/15/2024 10:03:58 PM Ordering Provider: [facility]05-19-2024 Hospital Discharge instructions Patient Education 04/06/2024 [...] complete blockage of the flow of urine 6414-1678 [employer] [place] [address]. All rights reserved. This information is not intended as a substitute for professional medical care. Always follow yourhealthcare professional's instructions. Follow Up Care 04/06/2024 12:11:51 With:THO YIP MD, [facility] Address: [address] [place] [phone]- [phone] When:3-7 days With:Go to emergency room if symptoms worsen Address:Unknown When:2-4 days With:PHOEBE ADAM APRN-FOUNDER / CEO Address: [address] [place] [phone]- When:2-4 days [facility] 05-19-2024 Emergency department Discharge summary Discharge Instructions Thank you for allowing [facility] to assist you with your healthcare needs. The following is importantdischarge information regarding your hospital visit. Diagnosis from Today's Visit Balanitis What to Do Next Instructions from Your Care Team No qualifying data available. Post Acute Orders No qualifying data available. You Need to Schedule the Following Appointments Follow Up with THO YIP MD, [facility] When: When:Within 3-7 days Where:[address] [place] [address] [address] [place] [address] [phone] Follow Up with Go to emergency room if symptoms worsen When: When:Within 2-4 days Follow Up with PHOEBE ADAM APRN-FOUNDER / CEO When: When:Within 2-4 days Where:[address] [facility] [place] [address]- Allergies ampicillin penicillin Medications Please ask your [...] complete blockage of the flow of urine [id number] [employer]. [address] [place] [address], [place] [address]. All rights reserved. This information is not intended as a substitute for professional medical care. Always follow yourhealthcare professional's instructions. Additional Information VACCINATE! IT SAVES LIVES! Members of the community who have not yet received the COVID-19 vaccine and would like to receive it can visit one of [facility] vaccine clinics. There are many vaccine clinic locations within the [facility]. For locations and available times, please visit www.[email or web address].[place].gov/. It is important to note that some COVID mobile vaccine clinics are held outdoors and may be canceled in rainy or stormy conditions. To learn more about pediatric vaccinations (ages 5-11), we invite you to visit the [facility] webpage. https://www.[facility].org/pages/5349-Hhlyd-Bknwtudkmyc-Qderifyual-Sqmky-Omx stions.htmlTo learn more about the COVID-19 vaccine, we invite you to visit the CDC website for a list of frequently asked questions. https://www.cdc.gov/coronavirus/2019-ncov/vaccines/faq.html [facility] Patient Portal Access Instructions: Stay connected with your healthcare team and access your personal medical information anytime with the [facility] Patient Portal. If you would like a full copy of your medical records please contact the [facility] Medical Records Department Sunday through Sunday between 8a.m. and 4:30p.m. Please follow the directions below to access the portal: 1.Access the email account you provided upon registration to the [facility].2.Look for an invitation email from [facility].3.Open the email and access the invitation link: Accept Invitation to [facility]4.Fill in the required nguyen to create your account. Sign into [email or web address] with your username and password that you [...] you will allow to register on the [facility] Patient Portal for access to your information. You can also access the [facility] Patient Portal on the [employer] artemio. Simply click on Health Records under [place] and then click on the [employer] logo. HOW TO SAFELY DISPOSE OF PRESCRIPTION [...] Call your local pharmacy or go to http://[employer]/4F3Wm5m to find one close to you.3.Make use of household items: Use cat litter or old coffee grounds to dispose medications if other options arenot available. Mix your drugs with these household products, seal them in an airtight container andthrow it into the garbage. Call [facility]: [phone] to be sure your drugs can be [...] aware that I should contact my doctor. 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 Signature: Date/Time: Relationship to Patient: Witness Name/Signature: Date/Time: [facility]05-19-2024 Note Discharge Instructions Thank you for allowing [facility] to assist you with your healthcare needs. The following is importantdischarge information regarding your hospital visit. Diagnosis from Today's Visit Balanitis What to Do Next Instructions from Your Care Team No qualifying data available. Post Acute Orders No qualifying data available. You Need to Schedule the Following Appointments Follow Up with THO YIP MD[facility] When: When:Within 3-7 days Where:[address] [place] [phone]- [phone] Follow Up with Go to emergency room if symptoms worsen When: When:Within 2-4 days Follow Up with PHOEBE ADAM APRN-FOUNDER / CEO When: When:Within 2-4 days Where:[address] [place] [address]- Allergies ampicillin penicillin Medications Please [...] complete blockage of the flow of urine [id number] [employer]. [address] [place] [address]. All rights reserved. This information is not intended as a substitute for professional medical care. Always follow yourhealthcare professional's instructions. Additional Information VACCINATE! IT SAVES LIVES! Members of the community who have not yet received the COVID-19 vaccine and would like to receive it can visit one of [facility] vaccine clinics. There are many vaccine clinic locations within the [facility]. For locations and available times, please visit www.[email or web address].[email or web address]/. It is important to note that some COVID mobile vaccine clinics are held outdoors and may be canceled in rainy or stormy conditions. To learn more about pediatric vaccinations (ages 5-11), we invite you to visit the [facility] webpage. https://www.[facility].org/pages/5447-Owksn-Lwqnypdzjly-Lhlbhhrbfe-Beeoa-Jdz stions.htmlTo learn more about the COVID-19 vaccine, we invite you to visit the CDC website for a list of frequently asked questions. https://www.cdc.gov/coronavirus/2019-ncov/vaccines/faq.html [facility] Patient Portal Access Instructions: Stay connected with your healthcare team and access your personal medical information anytime with the [facility] Patient Portal. If you would like a full copy of your medical records please contact the [facility] Medical Records Department Sunday through Sunday between 8a.m. and 4:30p.m. Please follow the directions below to access the portal: 1.Access the email account you provided upon registration to the hospital.2.Look for an invitation email from [facility].3.Open the email and access the invitation link: Accept Invitation to [facility]4.Fill in the required nguyen to create your account. Sign into [email or web address] with your username and password that you [...] you will allow to register on the [facility] Patient Portal for access to your information. You can also access the [facility] Patient Portal on the [employer] artemio. Simply click on Health Records under [place] and then click on the [employer] logo. HOW TO SAFELY DISPOSE OF PRESCRIPTION [...] Call your local pharmacy or go to http://[employer]/4K9Jc3i to find one close to you.3.Make use of household items: Use cat litter or old coffee grounds to dispose medications if other options arenot available. Mix your drugs with these household products, seal them in an airtight container andthrow it into the garbage. Call [facility]: [phone] to be sure your drugs can be [...] aware that I should contact my doctor. 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 Signature: Date/Time: Relationship to Patient: Witness Name/Signature: Date/Time: [facility]05-19-2024 Note ORIGINAL EXAMINATION: 2 x-ray views of [...] Date: 04/06/2024 3:50:03 PM Ordering Provider: [facility]ZFire[facility] Telephone encounter Note* Telephone Encounter - Miguelina Ashford MA - 04/02/2024 2:39 PM EDT Prescription Request: Last medication check: 04/05/23 Last physical exam: 06/22/21 Next scheduled appointment: 04/09/24 Last date of refill on this medication [id number] Miscellaneous Notes* Telephone Encounter - Miguelina Ashford MA - 04/02/2024 2:39 PM EDT Prescription Request: Last medication check: 04/05/23 Last physical exam: 06/22/21 Next scheduled appointment: 04/09/24 Last date of refill on this medication 01/01/24 documented in this [facility]04-23-2024 Hospital Discharge instructions Patient Education 03/11/2024 14:14:51 [...] 07/30/2013 Document Revised: 02/27/2020 Document Reviewed: 10/03/2017 [employer] Patient Education 2020 [employer]. 03/11/2024 14:14:46 Hyperglycemia Hyperglycemia Hyperglycemia occurs when [...] or polycystic ovarian syndrome (PCOS). Being of Romanian-Irish, -Romanian, /, or / descent. What are the [...] these instructions at home: General instructions Take kfej-qvv-zuezpeu and prescription medicines only as told by [...] 05/01/2002 Document Revised: 07/23/2017 Document Reviewed: 07/23/2017 [employer] Patient Education 2020 [employer]. 03/11/2024 14:14:30 Diabetes Mellitus and Standards of Medical Care Diabetes Mellitus and Standards of Medical Care Managing diabetes (diabetes mellitus) can be complicated. Your diabetes treatment may be managed bya team of health care providers, including: A physician who specializes in diabetes (toy packer). A nurse practitioner or physician maintenance assistant. Nurses. A diet and nutrition director (registered dietitian). A certified personal trainer (CDE). An teacher specialist. A pharmacist. An eye doctor. A foot caster (senior medical director). A dentist. A primary care provider. A [...] she may refer you to: A certified personal trainer to manage your diabetes throughout your life, starting at diagnosis. A registered dietitian who can create or review your personal nutrition plan. An teacher specialist who can discuss your activity level [...] 09/02/2010 Document Revised: 07/25/2019 Document Reviewed: 08/03/2017 [employer] Patient Education 2020 [employer]. Follow Up Care 03/08/2024 12:43:44 With:PHOEBE ADAM APRN-FOUNDER / CEO Address: [address] [place] [phone]- When:5 to 7 days Comments:post-hospitalization follow-up [facility] 04-23-2024 Note Discharge Instructions Thank you for allowing [facility] to assist you with your healthcare needs. [...] Up Appointments Follow Up with PHOEBE ADAM APRN-FOUNDER / CEO When Within 5 to 7 days Why: post-hospitalization follow-up Where: [address] [place] [address]- The Following Activity and Diet Have Been [...] by mouth Once a day Pickup at [facility] 03/11/24 at 0830am Changed insulin glargine (Lantus 100 units/ mL10 ml vial solution) 30 unit(s) Subcutaneous Daily at bedtime Pickup at [facility] none today Unchanged gabapentin [...] Once a day none today Pharmacy Information [facility]: [address] [place] [address] [phone] Please take this list to your next [...] 07/30/2013 Document Revised: 02/27/2020 Document Reviewed: 10/03/2017 [employer] Patient Education 2020 [employer]. Hyperglycemia Hyperglycemia occurs when the level of [...] or polycystic ovarian syndrome (PCOS). Being of Romanian-Irish, -Romanian, /, or / descent. What are the [...] these instructions at home: General instructions Take zktq-jse-cdpiwid and prescription medicines only as told by [...] 05/01/2002 Document Revised: 07/23/2017 Document Reviewed: 07/23/2017 [employer] Patient Education 2020 [employer]. Diabetes Mellitus and Standards of Medical Care Managing diabetes (diabetes mellitus) can be complicated. Your diabetes treatment may be managed bya team of health care providers, including: A physician who specializes in diabetes (toy packer). A nurse practitioner or physician maintenance assistant. Nurses. A diet and nutrition director (registered dietitian). A certified personal trainer (CDE). An teacher specialist. A pharmacist. An eye doctor. A foot caster (senior medical director). A dentist. A primary care provider. A [...] she may refer you to: A certified personal trainer to manage your diabetes throughout your life, starting at diagnosis. A registered dietitian who can create or review your personal nutrition plan. An teacher specialist who can discuss your activity level [...] 09/02/2010 Document Revised: 07/25/2019 Document Reviewed: 08/03/2017 [employer] Patient Education 2020 [employer]. Additional Information VACCINATE! IT SAVES LIVES! Members of the community who have not yet received the COVID-19 vaccine and would like to receive it can visit one of [facility] vaccine clinics. There are many vaccine clinic locations within the [facility]. For locations and available times, please visit [email or web address].gov/. It is important to note that some COVID mobile vaccine clinics are held outdoors and may be canceled in rainy or stormy conditions. To learn more about pediatric vaccinations (ages 5-11), we invite you to visit the [facility] webpage. https://www.[facility].org/pages/4540-Bfymb-Otjsrvjnkhu-Ezebdnmgvz-Fmabl-Nio stions.htmlTo learn more about the COVID-19 vaccine, we invite you to visit the CDC website for a list of frequently asked questions.https://www.cdc.gov/coronavirus/2019-ncov/vaccines/faq.html [facility] Patient Portal Access Instructions: Stay connected with your healthcare team and access your personal medical information anytime with the [facility] Patient Portal. Please follow the directions below to create your [employer] account: 1.Access the email account you provided upon registration to the hospital/physician office.2.Look for an invitation email from [facility].3.Open the email and access the invitation link: AcceptInvitation to [facility].4.Fill in the required nguyen to create your account. To access your account, visit [employer]inDinerot. Click the blue button labeled Access Patient [...] who you will allowto register on the [facility] Patient Portal for access to your information. You can also access the [facility] Patient Portal on the [facility] artemio. Simply click on Patient Portal and then log into your account. If you would like to receive a full copy of your medical records, please contact the [facility] Medical Records Department by calling [phone], Sunday through Sunday between 8 a.m. and [...] Call your local pharmacy or go to http://[employer]/[email or web address] to find one close to you.3.Make use of household items: Use cat litter or old coffee grounds to dispose medications if other options arenot available. Mix your drugs with these household products, seal them in an airtight container andthrow it into the garbage. Call [facility]: [phone] to be sure your drugs can be [...] aware that I should contact my doctor. 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 Signature: Date/Time: Relationship to Patient: Witness Name/Signature: Date/Time: [facility] [id number] Note Date of Service 03/10/2024 Chief Complaint weakness Subjective Patient seen and evaluated this morning while resting in chair. Patient was seen again by PT and OTwho felt that patient would benefit from a rehab stay in a SNF. For now, patient is agreeable with this and would like to go to [facility] in [place]. The hospital social worker sent a referral already but has not [...] skilled stay - patient agreeable right now. university services program associate following for discharge planning needs. 5. Diabetes [...] patient, discussed plan of care with nursing, oncology social work and therapy, collaborating with physician, and documenting in chart. Digitally Signed by BRAVO PEOPLES on 03/10/2024 04:17 PM [place] [address]-21-2024 Note Date of Service 03/09/2024 Chief Complaint [...] recommending skilled stay but patient not agreeable. university services program associate following for discharge planning needs. 5. Diabetes [...] by BRAVO PEOPLES on 03/09/2024 02:37 PM [facility]04-21-2024 Nurse Progress note Pt ambulating with therapy, states his legs suddenly gave out. Therapy caught patient before fall. Assisted back to bed with 4 staff members. Pt denies pain. Digitally Signed by Nataly Del Rio RN on 03/09/2024 09:44 AM [facility]04-20-2024 Note Date of Service 03/08/2024 Chief Complaint slid out of shower chair. glucos over 500 History of Present Illness Patient is a 48-year-old male, who follows with Phoebe Adam CNP with a past medical history significant for type 2 diabetes, hypertension, hyperlipidemia, neuropathy, Charcot foot, and tobacco abuse,presents to [facility] emergency department with the chief complaint [...] PT and OT to evaluate and treat. university services program associate following for discharge planning needs. 5. Diabetes [...] by BRAVO PEOPLES on 03/08/2024 05:03 PM [facility]04-20-2024 Evaluation + Plan noteExtracted from: Title:History and Physical Author:SHELTON BRAVO M DIRECTOR OF OPERATIONS-REGULATORY AFFAIRS INTERN Date:03/08/24 1. Acute kidney injury Acute, on [...] PT and OT to evaluate and treat. university services program associate following for discharge planning needs. 5. Diabetes [...] collaborating with physician, and documenting in chart. [facility] 04-20-2024 Note ORIGINAL EXAMINATION: THREE XRAY VIEWS [...] Sign Date: 03/08/2024 1:40:07 PM Ordering Provider: [facility]04-20-2024 Note ORIGINAL EXAMINATION: ONE XRAY VIEW OF [...] Sign Date: 03/08/2024 1:27:14 PM Ordering Provider: [facility]04-20-2024 Note Sinus tachycardia Right bundle branch block Electronic Signature: CATHERINE ARREDONDO DO 03/08/2024 13:14:[address] [place] [address] 04-01-2024 Telephone encounter Note* Telephone Encounter - MOIRA Samuels CNP - 02/18/2024 9:55 AM EDT Reviewed chart. Refill appropriate. RX sent. [facility]fftvf55[facility]-2624 Miscellaneous Notes* Telephone Encounter - MOIRA Samuels CNP - 02/18/2024 9:55 AM EDT Reviewed chart. Refill appropriate. RX sent. * Telephone Encounter - Yadira Uribe MA - 02/18/2024 9:45 AM EDT Prescription Request: Last medication check: 04/05/2023 Last physical exam: 06/22/2021 Next scheduled appointment: 02/25/2024 Last date of refill on this medication: 11/05/23 documented in this [facility]04-01-2024 Telephone encounter Note* Telephone Encounter - Yadira Uribe MA - 02/18/2024 9:45 AM EDT Prescription Request: Last medication check: 04/05/2023 Last physical exam: 06/22/2021 Next scheduled appointment: 02/25/2024 Last date of refill on this medication: 11/05/23 [facility]bdhdo59-63-1080 Telephone encounter Note* Telephone Encounter - Yadira Uribe MA - 02/05/2024 3:02 PM EDT Prescription Request: Last medication check: 04/05/23 Last physical exam: 06/22/21 Next scheduled appointment: 02/18/24 Last date of refill on this medication 12/17/23 [facility] CincinnatiIcfeov34-48-4758 Miscellaneous Notes* Telephone Encounter - Yadira Uribe MA - 02/05/2024 3:02 PM EDT Prescription Request: Last medication check: 04/05/23 Last physical exam: 06/22/21 Next scheduled appointment: 02/18/24 Last date of refill on this medication 12/17/23 documented in this [place] [address]-19-2024 Telephone encounter Note* Telephone Encounter - MOIRA Samuels CNP - 02/05/2024 12:57 PM EDT Reviewed chart. Refill appropriate. RX sent. [place] [id number] Miscellaneous Notes* Telephone Encounter - MOIRA Samuels CNP - 02/05/2024 12:57 PM EDT Reviewed chart. Refill appropriate. RX sent. * Telephone Encounter - Miguelina Ashford MA - 02/05/2024 11:00 AM EDT Prescription Request: Last medication check: 04/05/23 Last physical exam: 06/22/21 Next scheduled appointment: 02/18/24 Last date of refill on this medication 08/15/23 30 day 5 refills documented in this [place] [address]-19-2024 Telephone encounter Note* Telephone Encounter - Miguelina Ashford MA - 02/05/2024 11:00 AM EDT Prescription Request: Last medication check: 04/05/23 Last physical exam: 06/22/21 Next scheduled appointment: 02/18/24 Last date of refill on this medication 08/15/23 30 day 5 refills [facility]Jryzpv03-37-6370 Telephone encounter Note* Telephone Encounter - MOIRA Peralta CNP - 01/21/2024 12:33 PM EST Rx sent for small supply. Follow up as scheduled. [facility] CincinnatiVtvmbq31-93-5917 Miscellaneous Notes* Telephone Encounter - MOIRA Peralta [...] on this medication 07/20/23 documented in this [facility] SouthGepinl71-13-5508 Telephone encounter Note* Telephone Encounter - Kasey Hankins - 01/21/2024 10:40 AM EST Prescription Request: Last medication check: 04/05/23 Last physical exam: 06/22/21 Next scheduled appointment: was scheduled tomorrow but canceled now on 01/28/24 Last date of refill on this medication 07/20/23 [facility] CincinnatiYwntde06-53-1823 Telephone encounter Note* Telephone Encounter - Vishal Kingsley LPN - 01/01/2024 11:55 AM EST Prescription Request: Last medication check: 04/05/23 Last physical exam: 06/22/21 Next scheduled appointment: not found Last date of refill on this medication 10/03/23 #60 2 refills [facility] CincinnatiUvsagz05-99-6810 Miscellaneous Notes* Telephone Encounter - Vishal Kingsley LPN - 01/01/2024 11:55 AM EST Prescription Request: Last medication check: 04/05/23 Last physical exam: 06/22/21 Next scheduled appointment: not found Last date of refill on this medication 10/03/23 #60 2 refills documented in this [facility]01-29-2024 Telephone encounter Note* Telephone Encounter - MOIRA Peralta CNP - 12/17/2023 8:45 AM EST Rx sent. Needs to reschedule his diabetic maintenance visit [place]. [facility] CincinnatiLovsvd74-95-7832 Miscellaneous Notes* Telephone Encounter - MOIRA Peralta CNP - 12/17/2023 8:45 AM EST Rx sent. Needs to reschedule his diabetic maintenance visit [place]. * Telephone Encounter - Vishal Kingsley LPN - 12/17/2023 6:55 AM EST Prescription Request: Last medication check: 04/05/23 Last physical exam: 06/22/21 Next scheduled appointment: not found Last date of refill on this medication 07/30/23 3 ml 1 refill documented in this [facility]01-29-2024 Telephone encounter Note* Telephone Encounter - Vishal Kingsley LPN - 12/17/2023 6:55 AM EST Prescription Request: Last medication check: 04/05/23 Last physical exam: 06/22/21 Next scheduled appointment: not found Last date of refill on this medication 07/30/23 3 ml 1 refill [facility] CincinnatiAfsmkh27-40-4173 Telephone encounter Note* Telephone Encounter - MOIRA Samuels CNP - 10/18/2023 2:56 PM EST Reviewed chart. Refill appropriate. RX sent. [facility] CincinnatiQwknzm93-93-7846 Miscellaneous Notes* Telephone Encounter - MOIRA Samuels CNP - 10/18/2023 2:56 PM EST Reviewed chart. Refill appropriate. RX sent. * Telephone Encounter - Yadira Uribe MA - 10/18/2023 2:17 PM EST Prescription Request: Last medication check: 04/05/23 Last physical exam: 06/22/21 Next scheduled appointment: 10/30/23 CSA 01/08/23, UDS 05/16/22 Last date of refill on this medication 09/19/23 documented in this encounterSSelect [facility] SouthMvyfgm49-41-4388 Telephone encounter Note* Telephone Encounter - Yadira Uribe MA - 10/18/2023 2:17 PM EST Prescription Request: Last medication check: 04/05/23 Last physical exam: 06/22/21 Next scheduled appointment: 10/30/23 CSA 01/08/23, UDS 05/16/22 Last date of refill on this medication 09/19/23 [place] [id number] Telephone encounter Note* Telephone Encounter - MOIRA Samuels CNP - 10/03/2023 12:11 PM EST Reviewed chart. Refill appropriate. RX sent. [facility] [id number] Miscellaneous Notes* Telephone Encounter - OMIRA Samuels CNP - 10/03/2023 12:11 PM EST Reviewed chart. Refill appropriate. RX sent. * Telephone Encounter - Miguelina Ashford MA - 10/03/2023 11:19 AM EST Prescription Request: Last medication check: 04/05/23 Last physical exam: 06/22/21 Next scheduled appointment: 10/30/23 Last date of refill on this medication 07/12/23 1 month 2 refills documented in this [facility]11-15-2023 Telephone encounter Note* Telephone Encounter - Miguelina Ashford MA - 10/03/2023 11:19 AM EST Prescription Request: Last medication check: 04/05/23 Last physical exam: 06/22/21 Next scheduled appointment: 10/30/23 Last date of refill on this medication 07/12/23 1 month 2 refills [facility] CincinnatiCondup13-33-8660 Telephone encounter Note* Telephone Encounter - MOIRA Samuels CNP - 08/27/2023 8:50 AM EDT Reviewed chart. Refill appropriate. RX sent. [address]Skmpub61-46-3512 Miscellaneous Notes* Telephone Encounter - MOIRA Samuels CNP - 08/27/2023 8:50 AM EDT Reviewed chart. Refill appropriate. RX sent. * Telephone Encounter - Miguelina Ashford MA - 08/27/2023 7:28 AM EDT Prescription Request: Last medication check: 04/05/23 Last physical exam: 06/22/21 Next scheduled appointment: none Last date of refill on this medication 07/05/23 4 pens 2 refills documented in this [facility]10-09-2023 Telephone encounter Note* Telephone Encounter - Miguelina Ashford MA - 08/27/2023 7:28 AM EDT Prescription Request: Last medication check: 04/05/23 Last physical exam: 06/22/21 Next scheduled appointment: none Last date of refill on this medication 07/05/23 4 pens 2 refills [facility] CincinnatiUmxful92-45-7842 Telephone encounter Note* Telephone Encounter - Yadira Uribe MA - 08/15/2023 2:14 PM EDT Prescription Request: Last medication check: 04/05/23 Last physical exam: 06/22/21 Next scheduled appointment: none Last date of refill on this medication 03/20/2023 [facility] CincinnatiVmbvjy85-61-3055 Miscellaneous Notes* Telephone Encounter - Yadira Uribe MA - 08/15/2023 2:14 PM EDT Prescription Request: Last medication check: 04/05/23 Last physical exam: 06/22/21 Next scheduled appointment: none Last date of refill on this medication 03/20/2023 documented in this [facility]09-15-2023 Telephone encounter Note* Telephone Encounter - Alexa Watt - 08/03/2023 10:37 AM EDT No message for patient [facility] CincinnatiVqxzna53-38-3802 Miscellaneous Notes* Telephone Encounter - Alexa Watt - 08/03/2023 10:37 AM EDT No message for patient * Telephone Encounter - Lakesha Payneord - 07/30/2023 10:29 AM EDT Name of caller: Gurinder Contact phone number: [phone] Relationship to Patient: patient Provider: Dr. [facility] [...] return their call: No documented in this encounterSSelect [facility] SouthAbvygw91-24-3008 Telephone encounter Note* Telephone Encounter - MOIRA Samuels CNP - 07/30/2023 4:22 PM EDT Reviewed chart. Refill appropriate. RX sent. [facility] CincinnatiGqdegc45-70-8216 Miscellaneous Notes* Telephone Encounter - MOIRA Samuels CNP - 07/30/2023 4:22 PM EDT Reviewed chart. Refill appropriate. RX sent. * Telephone Encounter - Rae Hernandez MA - 07/30/2023 2:57 PM EDT Prescription Request: Last medication check: 04/05/23 Last physical exam: 06/22/21 Next scheduled appointment: none Last date of refill on this medication 07/05/23 3ml 1 refill documented in this encounterSSelect [facility] SouthCspmmv44-13-7570 Telephone encounter Note* Telephone Encounter - Rae Hernandez MA - 07/30/2023 2:57 PM EDT Prescription Request: Last medication check: 04/05/23 Last physical exam: 06/22/21 Next scheduled appointment: none Last date of refill on this medication 07/05/23 3ml 1 refill [facility] CincinnatiJrvowc80-51-2492 Telephone encounter Note* Telephone Encounter - Lakesha Bai - 07/30/2023 10:29 AM EDT Name of caller: Gurinder Contact phone number: [phone] Relationship to Patient: patient Provider: Dr. [facility] Practice: [facility] Chief Complaint/Reason for Call: The patient is returning a call to Alexa he states she called him on 07/27/2023. I didn't see a message from Alexa for the patient. Please advise. Best time of day caller can be reached: Any Patient advised that office/PCP has 24-48 business hours to return their call: No [facility] CincinnatiOoujzw94-48-3159 Telephone encounter Note* Telephone Encounter - Alexa Watt - 07/26/2023 8:45 AM EDT Called and LM for patient----inform patient he needs to schedule with endocrinology for DM. [place] [id number] Miscellaneous Notes* Telephone Encounter - Alexa Watt [...] 90 days 1 refill documented in this [facility]09-01-2023 Telephone encounter Note* Telephone Encounter - MOIRA Peralta CNP - 07/20/2023 12:03 PM EDT Rx sent. Reminder he still needs to schedule an appointment with endocrinology for his diabetes. [facility] CincinnatiFyzvik59-15-9241 Miscellaneous Notes* Telephone Encounter - MOIRA Peralta [...] 90 days 1 refill documented in this [facility]09-01-2023 Telephone encounter Note* Telephone Encounter - Rae Hernandez MA - 07/20/2023 11:23 AM EDT Prescription Request: Last medication check: 04/05/23 Last physical exam: 06/22/21 Next scheduled appointment: none Last date of refill on this medication 01/08/23 90 days 1 refill [facility] CincinnatiIhxjdh18-21-8118 Telephone encounter Note* Telephone Encounter - MOIRA Samuels CNP - 07/12/2023 11:59 AM EDT Reviewed chart. Refill appropriate. RX sent. [facility] CincinnatiKxowrb94-29-4825 Miscellaneous Notes* Telephone Encounter - MOIRA Samuels CNP - 07/12/2023 11:59 AM EDT Reviewed chart. Refill appropriate. RX sent. * Telephone Encounter - Yadira Uribe MA - 07/12/2023 11:31 AM EDT Prescription Request: Last medication check: 04/05/23 Last physical exam: 06/22/21 Next scheduled appointment: none Last date of refill on this medication 04/09/23 documented in this [facility]08-24-2023 Telephone encounter Note* Telephone Encounter - Yadira Uribe MA - 07/12/2023 11:31 AM EDT Prescription Request: Last medication check: 04/05/23 Last physical exam: 06/22/21 Next scheduled appointment: none Last date of refill on this medication 04/09/[address] [facility]Red [facility] Services HospitalNwagnm03-51-0911 Hospital Discharge instructions Patient Education 07/07/2023 19:57:24 [...] problems caused by scarring or long-term infections. 6340-[address] [place], [place] [id number]. All rights reserved. This information is not [...] to keep medicine down Weakness or dizziness 5098-4155 [employer]. [address] [place] [address], [place] [address]. All rights reserved. This information is not intended as a substitute for professional medical care. Always follow yourhealthcare professional's instructions. Follow Up Care 07/07/2023 18:18:59 With:ARTIE JACKSON MD Address: [address] [place] [address]- When:2-4 days Comments:Schedule appointment as soon as possible [facility] 08-19-2023 Emergency department Discharge summary Discharge Instructions Thank you for allowing [facility] to assist you with your healthcare needs. [...] as soon as possible Where: [address] [place] [address]- Allergies ampicillin penicillin Medications Please ask your [...] problems caused by scarring or long-term infections. 5801-28[address] [employer]. [address] [place] [address], [place] [address]. All rights reserved. This information is not [...] to keep medicine down Weakness or dizziness 7778-[address] [employer]. [address] [place] [address]. All rights reserved. This information is not intended as a substitute for professional medical care. Always follow yourhealthcare professional's instructions. Additional Information VACCINATE! IT SAVES LIVES! Members of the community who have not yet received the COVID-19 vaccine and would like to receive it can visit one of [facility] vaccine clinics. There are many vaccine clinic locations within the [facility]. For locations and available times, please visit www.[email or web address].[place].gov/. It is important to note that some COVID mobile vaccine clinics are held outdoors and may be canceled in rainy or stormy conditions. To learn more about pediatric vaccinations (ages 5-11), we invite you to visit the [facility] webpage. https://www.[facility].org/pages/3618-Wuayf-Yttypmdvxll-Lhvnzogeql-Fpaof-Jxg stions.htmlTo learn more about the COVID-19 vaccine, we invite you to visit the CDC website for a list of frequently asked questions. https://www.cdc.gov/coronavirus/2019-ncov/vaccines/faq.html [facility] Patient Portal Access Instructions: Stay connected with your healthcare team and access your personal medical information anytime with the [facility] Patient Portal. If you would like a full copy of your medical records please contact the [facility] Medical Records Department Sunday through Sunday between 8a.m. and 4:30p.m. Please follow the directions below to access the portal: 1.Access the email account you provided upon registration to the hospital.2.Look for an invitation email from [facility].3.Open the email and access the invitation link: Accept Invitation to [facility]4.Fill in the required nguyen to create your [...] you will allow to register on the [facility] Patient Portal for access to your information. You can also access the [facility] Patient Portal on the [employer] artemio. Simply click on Health Records under [place] and then click on the [facility] logo. HOW TO SAFELY DISPOSE OF PRESCRIPTION [...] Call your local pharmacy or go to http://[employer]/1M3Ep7b to find one close to you.3.Make use of household items: Use cat litter or old coffee grounds to dispose medications if other options arenot available. Mix your drugs with these household products, seal them in an airtight container andthrow it into the garbage. Call [facility]: [phone] to be sure your drugs can be [...] aware that I should contact my doctor. 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 gonorrhoeae PCR 07/07/23 * Urine Culture 07/07/23 [facility] 08-17-2023 Telephone encounter Note* Telephone Encounter - Rae Hernandez MA - 07/05/2023 2:37 PM EDT Prescription Request: Last medication check: 04/05/23 Last physical exam: 06/22/21 Next scheduled appointment: none Last date of refill on this medication 06/06/23 3mL 1 refill [facility]Ooczke54-25-8703 Miscellaneous Notes* Telephone Encounter - Rae Hernandez MA - 07/05/2023 2:37 PM EDT Prescription Request: Last medication check: 04/05/23 Last physical exam: 06/22/21 Next scheduled appointment: none Last date of refill on this medication 06/06/23 3mL 1 refill documented in this [facility]08-15-2023 Telephone encounter Note* Telephone Encounter - MOIRA Peralta CNP - 07/03/2023 5:05 [address] EDT [address] you Dr. [facility]. [facility] CincinnatiMixyxn75-52-9920 Miscellaneous Notes* Telephone Encounter - MOIRA Peralta [...] sign order for culture. documented in this [place] [address]-15-2023 Telephone encounter Note* Telephone Encounter - Lorenza Parada MA - 07/03/2023 11:52 AM EDT Message released to patient as written. Patient's further questions if applicable: no Were all questions from office addressed or relayed to the patient from encounter: Yes [facility] CincinnatiPexxei14-46-4489 Miscellaneous Notes* Telephone Encounter - Lorenza Parada [...] and will treat accordingly. documented in this encounterSSelect [facility]ty [facility]sicjt43-90-2633 Telephone encounter Note* Telephone Encounter - Kasey Hankins - 07/03/2023 11:41 AM EDT Called patient no answer no VM. Sent mychart message. Results were Seen by proxy Lisset Curiel on 07/03/2023 9:46 AM [facility]kyogb72-27-5717 Telephone encounter Note* Telephone Encounter - Kasey Hankins - 07/03/2023 11:28 AM EDT ----- Message from Artie Jackson MD sent at 07/03/2023 9:46 AM EDT ----- Urine with some blood, lots of protein, moderate amount of leukocytes, and lots of sugar, sent for culture and will treat accordingly. [facility]Phpmub43-41-7022 Telephone encounter Note* Telephone Encounter - Artie Jackson MD - 07/03/2023 9:43 AM EDT Order signed [facility] CincinnatiYxctvv94-20-3432 Telephone encounter Note* Telephone Encounter - Rae Hernandez MA - 07/03/2023 8:54 AM EDT Patient came in for UA due to symptoms of UTI. It is positive for moderate WBC's, large blood, 2,000+ glucose, large protein. Please sign order for culture. [facility] CincinnatiCnqgaf39-08-8583 Telephone encounter Note* Telephone Encounter - MOIRA Peralta CNP - 05/18/2023 12:56 PM EDT Noted. [facility] CincinnatiHjieap98-18-3657 Miscellaneous Notes* Telephone Encounter - MOIRA Peralta CNP - 05/18/2023 12:56 PM EDT Noted. * Telephone Encounter - Vikki Cerna - 05/18/2023 12:32 PM EDT Name of caller: Isai Contact phone number: [phone] Relationship to Patient: patient Provider: Dr Jackson [...] return their call: No documented in this encounterSSelect [facility] SouthTfldxd62-79-1643 Telephone encounter Note* Telephone Encounter - Vikki Cerna - 05/18/2023 12:32 PM EDT Name of caller: Isai Contact phone number: [phone] Relationship to Patient: patient Provider: Dr Jackson [...] business hours to return their call: No [facility] CincinnatiCqizzw08-32-8500 Telephone encounter Note* Telephone Encounter - MOIRA Samuels CNP - 05/14/2023 12:45 PM EDT Reviewed chart. Refill appropriate. RX sent. [facility] CincinnatiCdhuwu91-15-4098 Miscellaneous Notes* Telephone Encounter - MOIRA Samuels CNP - 05/14/2023 12:45 PM EDT Reviewed chart. Refill appropriate. RX sent. * Telephone Encounter - Yadira Uribe MA - 05/14/2023 11:10 AM EDT Prescription Request: Last medication check: 04/05/23 Last physical exam: 06/22/21 Next scheduled appointment: none Last date of refill on this medication 04/13/23 documented in this [facility]-26-2023 Telephone encounter Note* Telephone Encounter - Yadira Uribe MA - 05/14/2023 11:10 AM EDT Prescription Request: Last medication check: 04/05/23 Last physical exam: 06/22/21 Next scheduled appointment: none Last date of refill on this medication 04/13/23 [facility]Lviynh41-91-6528 History of Present illness Narrative* MOIRA Samuels CNP - 05/09/2023 7:26 AM EDT eGFR 22, STOP metformin and fenofibrate as contraindicated documented in this [facility]-19-2023 Telephone encounter Note* Telephone Encounter - MOIRA Samuels CNP - 05/07/2023 10:17 AM EDT Reviewed chart. Refill appropriate. RX sent. [facility] CincinnatiMusfjp18-99-7162 Miscellaneous Notes* Telephone Encounter - MOIRA Samuels CNP - 05/07/2023 10:17 AM EDT Reviewed chart. Refill appropriate. RX sent. * Telephone Encounter - Miguelina Ashford MA - 05/07/2023 9:51 AM EDT Prescription Request: Last medication check: 04/05/23 Last physical exam: 06/22/21 Next scheduled appointment: none Last date of refill on this medication 11/14/22 90 day 1 refill documented in this [facility]-19-2023 Telephone encounter Note* Telephone Encounter - Miguelina Ashford MA - 05/07/2023 9:51 AM EDT Prescription Request: Last medication check: 04/05/23 Last physical exam: 06/22/21 Next scheduled appointment: none Last date of refill on this medication 11/14/22 90 day 1 refill [facility] CincinnatiSpuhuz91-60-6095 Telephone encounter Note* Telephone Encounter - Yadira Uribe MA - 04/20/2023 9:59 AM EDT Prescription Request: Last medication check: 04-05-23 Last physical exam: 06-22-21 Next scheduled appointment: 05-03-23 Last date of refill on this medication 01/08/2023 [facility] CincinnatiEparvl04-89-4997 Miscellaneous Notes* Telephone Encounter - Yadira Uribe MA - 04/20/2023 9:59 AM EDT Prescription Request: Last medication check: 04-05-23 Last physical exam: 06-22-21 Next scheduled appointment: 05-03-23 Last date of refill on this medication 01/08/2023 documented in this [facility]-19-2023 Telephone encounter Note* Telephone Encounter - aRe Hernandez MA - 04/06/2023 10:58 AM EDT Patient notified and voiced understanding, will have girlfriend my chart his levels over every 3 days and get scheduled with nephrology. He is scheduled in 4 weeks for labs to recheck potassium. Please place order. [facility] CincinnatiEqnezg02-64-0382 Telephone encounter Note* Telephone Encounter - Rae [...] to recheck potassium level in 4 weeks. [facility] CincinnatiWfisne96-34-3872 Miscellaneous Notes* Telephone Encounter - Rae Hernandez [...] level in 4 weeks. documented in this [facility]05-02-2023 Miscellaneous Notes* Telephone Encounter - Rae Hernandez MA - 03/20/2023 9:50 AM EDT Prescription Request: Last medication check: 01/08/23 Last physical exam: 06/22/21 Next scheduled appointment: 04/06/23 Last date of refill on this medication 09/21/22 30 days 5 refills documented in this [facility]05-02-2023 Telephone encounter Note* Telephone Encounter - Rae Hernandez MA - 03/20/2023 9:50 AM EDT Prescription Request: Last medication check: 01/08/23 Last physical exam: 06/22/21 Next scheduled appointment: 04/06/23 Last date of refill on this medication 09/21/22 30 days 5 refills [facility] CincinnatiUnazzp15-52-2792 Telephone encounter Note* Telephone Encounter - MOIRA Peralta CNP - 03/19/2023 4:26 PM EDT Rx sent. Follow up as scheduled. [facility] CincinnatiBrwnhm28-23-7025 Miscellaneous Notes* Telephone Encounter - MOIRA Peralta CNP - 03/19/2023 4:26 PM EDT Rx sent. Follow up as scheduled. * Telephone Encounter - Rae Hernandez MA - 03/19/2023 4:09 PM EDT Prescription Request: Last medication check: 01/08/23 Last physical exam: 06/22/21 Next scheduled appointment: 04/06/23 Last date of refill on this medication 01/01/23 120 pads documented in this [facility]05-01-2023 Telephone encounter Note* Telephone Encounter - Rae Hernandez MA - 03/19/2023 4:09 PM EDT Prescription Request: Last medication check: 01/08/23 Last physical exam: 06/22/21 Next scheduled appointment: 04/06/23 Last date of refill on this medication 01/01/23 120 pads [facility] CincinnatiTrrfrv14-92-1416 Telephone encounter Note* Telephone Encounter - Miguelina Ashford MA - 01/23/2023 6:53 AM EST Prescription Request: Last medication check: 01/08/23 Last physical exam: 06/22/21 Next scheduled appointment: 04/06/23 CSA on file (date): na Last urine drug screen: na Last date of refill on this medication 01/08/23 3ml 1 refill [facility] CincinnatiDzzdhs35-42-7959 Miscellaneous Notes* Telephone Encounter - Miguelina Ashford MA - 01/23/2023 6:53 AM EST Prescription Request: Last medication check: 01/08/23 Last physical exam: 06/22/21 Next scheduled appointment: 04/06/23 CSA on file (date): na Last urine drug screen: na Last date of refill on this medication 01/08/23 3ml 1 refill documented in this [facility]-06-2023 Telephone encounter Note* Telephone Encounter - MOIRA Peralta CNP - 01/22/2023 2:27 PM EST Rx sent. Follow up as scheduled. [facility] CincinnatiOosjje84-79-4242 Miscellaneous Notes* Telephone Encounter - MOIRA Peralta [...] 30 day no refill documented in this [facility]-06-2023 Telephone encounter Note* Telephone Encounter - Montserrat Ramos - 01/22/2023 1:43 PM EST Message released to patient as written. Called Mamie Stack a message to return call. Please let him know that we referred him to a retina specialist, their phone number is [phone]. Dr. Mccarthy reviewed his chart and would like him to see them first due to the severity of his diabetes, she thinks she would just end up referring him there anyhow. Patient's further questions if applicable: No Were all questions from office addressed or relayed to the patient from encounter: Yes [place] [id number] Miscellaneous Notes* Telephone Encounter - Montserrat Ramos - 01/22/2023 1:43 PM EST Message released to patient as written. Called Gurinder, Left a message to return call. Please let him know that we referred him to a retina specialist, their phone number is [phone]. Dr. Mccarthy reviewed his chart and would [...] a retina specialist, their phone number is [phone]. Dr. Mccarthy reviewed his chart and would like him to see them first due to the severity of his diabetes, she thinks she would just end up referring him there anyhow. * Telephone Encounter - MOIRA Peralta CNP - 01/22/2023 1:18 PM EST Noted. Thank you for clarifying. New referral placed. Please notify Gurinder. [facility] [address] [facility] [address] (FAX) * Telephone Encounter - Yadira Uribe MA - 01/22/2023 1:09 PM EST Called them back, Dr. Mccarthy reviewed his chart and said due to the severity of his Diabetes she would rather he go straight to a retina specialist instead of seeing her first. They recommended [facility]-they have an office on [address], phone number is [phone]. * Telephone Encounter - MOIRA Peralta CNP - 01/22/2023 12:30 PM EST Do we know why? Is his insurance not covered there? * Telephone Encounter - Montserrat Ramos - 01/22/2023 10:06 AM EST Name of caller: [facility]. Contact phone number: [phone] Relationship to Patient: [facility]. Provider: Phoebe URENA Practice: [facility] Chief Complaint/Reason for Call: [facility]. Calling an states that the patient willhave to see another provider. They wanted to inform Phoebe URENA, about this. Please advise. Best time of day caller can be reached: any Patient advised that office/PCP has 24-48 business hours to return their call: N/A documented in this [facility] SouthAzfmjy53-31-4831 Telephone encounter Note* Telephone Encounter - Yadira Uribe MA - 01/22/2023 1:24 PM EST Called Mamie Stack a message to return call. Please let him know that we referred him to a retina specialist, their phone number is [phone]. Dr. Mccarthy reviewed his chart and would like him to see them first due to the severity of his diabetes, she thinks she would just end up referring him there anyhow. [facility] CincinnatiBruuon65-72-1424 Telephone encounter Note* Telephone Encounter - MOIRA Peralta CNP - 01/22/2023 1:18 PM EST Noted. Thank you for clarifying. New referral placed. Please notify Gurinder. [facility] [place] [address] [facility] [id number] (FAX) [facility] CincinnatiLrzpjg23-22-5753 Telephone encounter Note* Telephone Encounter - Yadira Uribe MA - 01/22/2023 1:09 PM EST Called them back, Dr. Mccarthy reviewed his chart and said due to the severity of his Diabetes she would rather he go straight to a retina specialist instead of seeing her first. They recommended [facility]-they have an office on [address], phone number is [phone]. [facility] CincinnatiLzlqet03-17-2516 Telephone encounter Note* Telephone Encounter - MOIRA Peralta CNP - 01/22/2023 12:30 PM EST Do we know why? Is his insurance not covered there? [facility] CincinnatiBykwnm09-14-1908 Telephone encounter Note* Telephone Encounter - Montserrat Ramos - 01/22/2023 10:06 AM EST Name of caller: [facility] Contact phone number: [phone] Relationship to Patient: [facility] Provider: Phoebe URENA Practice: [facility] Chief Complaint/Reason for Call: [facility] Calling an states that the patient willhave to see another provider. They wanted to inform Phoebe URENA, about this. Please advise. Best time of day caller can be reached: any Patient advised that office/PCP has 24-48 business hours to return their call: N/A [place] [id number] Telephone encounter Note* Telephone Encounter - Miguelina Ashford MA - 01/22/2023 7:09 AM EST Prescription Request: Last medication check: 01/08/23 Last physical exam: 06/22/21 Next scheduled appointment: 04/06/23 CSA on file (date): na Last urine drug screen: na Last date of refill on this medication: 08/28/22 30 day no refill [facility] CincinnatiKmyukw98-98-6026 Telephone encounter Note* Telephone Encounter - MOIRA Peralta CNP - 01/08/2023 11:37 AM EST Rx sent. [facility] CincinnatiVkflec00-19-9523 Miscellaneous Notes* Telephone Encounter - MOIRA Peralta [...] 100 strips 1 refill documented in this [facility]SSelect [facility] SouthVrgeon35-47-1069 History of Present illness Narrative* MOIRA Peralta CNP - 01/08/2023 10:00 AM EST Images from the original note were not included. [place] [address] [address] [facility] [address] Dept: [phone] Dept Loc: [phone] HPI: Gurinder Hahn is a 47 y.o. [...] referral today with Dr. Rae Patel in [place]) Dental exam current (within one year): No - reminded to schedule Weight trend: stable Prior visit with technical instructor course developer: No Current diet: in general, an unhealthy [...] polyneuropathy, with long-term current use of insulin ([facility]) ([facility]) - CBC - Comprehensive metabolic panel - [...] polyneuropathy associated with type 2 diabetes mellitus ([facility]) ([facility]) - CBC - Comprehensive metabolic panel - [...] signed today. 3. Diabetes mellitus with proteinuria ([facility]) ([facility]) - CBC - Comprehensive metabolic panel - [...] Discussed importance of following up with a merchandise buyer. Will check levels today and refer accordingly. [...] (BMI) of38.0 to 38.9 in adult - [facility] - Comprehensive metabolic panel - Encouraged a [...] Diabetes Foot Exam Phoebe Adam APRN - REGULATORY AFFAIRS INTERN 01/08/2023 10:31 AM documented in this [facility]02-20-2023 Telephone encounter Note* Telephone Encounter - Miguelina Ashford MA - 01/08/2023 9:49 AM EST Prescription Request: Last medication check: 01/08/23 Last physical exam: 06/22/21 Next scheduled appointment: 01/08/23 CSA on file (date): na Last urine drug screen: na Last date of refill on this medication 10/02/22 100 strips 1 refill [place] [id number] Telephone encounter Note* Telephone Encounter - MOIRA Peralta CNP - 01/01/2023 12:46 PM EST Rx sent with no refills. Follow up as scheduled. [address]kltgp03-74-3677 Miscellaneous Notes* Telephone Encounter - MOIRA Peralta [...] on this medication: 05/24/2022 documented in this [address]13-2023 Telephone encounter Note* Telephone Encounter - Yadira Uribe MA - 01/01/2023 8:13 AM EST Prescription Request: Last medication check: 07/17/22 Last physical exam: 06/22/2021 Next scheduled appointment: none-needs scheduled for physical, called patient, scheduled for next Sunday with Phoebe. Last date of refill on this medication: 05/24/2022 [facility] CincinnatiBsfibg55-54-4556 History of Present illness Narrative* Tu Goetz MD - 12/22/2022 2:15 PM EST Images from the original note were not included. [facility] [address] [address] Dept: [phone] Dept Gurinder Raza Jovani 1975 [phone] 12/22/2022 HISTORY OF PRESENT ILLNESS: Gurinder is [...] level of the midfoot Gait and Station: [facility] walks with a limp RADIOGRAPHIC INTERPRETATION: [...] polyneuropathy, with long-term current use of insulin ([facility]) ([facility]) Diabetic Shoes 3. Diabetic polyneuropathy associated with type 2 diabetes mellitus ([facility]) ([facility]) Diabetic Shoes MEDICAL DECISION MAKING: I had [...] visit was spent [facility]. I explained that Gurinder needs to check [...] problems early prior to more catastrophic problems. Gurindre understands the importance this routine and will [...] file. Electronically signed by Tu Goetz MD [facility] Department of Orthopedic surgery 12/22/2022 2:57 PM Voice recognition was used for portions of this note and although it was reviewed prior to signing some incorrect words or phrases could be present. documented in this [facility]-04-2023 Telephone encounter Note* Telephone Encounter - Yadira Uribe MA - 11/22/2022 3:15 PM EST Prescription Request: Last medication check: 05/09/2022 Last physical exam: 06/22/2021 Next scheduled appointment: 12/08/2022 Last date of refill on this medication: 09/21/22 for #120 and 1 refill [facility] CincinnatiNkdnnj36-26-9852 Miscellaneous Notes* Telephone Encounter - Yadira Uribe MA - 11/22/2022 3:15 PM EST Prescription Request: Last medication check: 05/09/2022 Last physical exam: 06/22/2021 Next scheduled appointment: 12/08/2022 Last date of refill on this medication: 09/21/22 for #120 and 1 refill documented in this [facility]01-26-2022 Hospital Discharge instructions Patient Education 12/14/2021 00:51:30 [...] get worse or if new symptoms appear. 3132-8244 [employer]. [address] [place] [address]. All rights reserved. This information is not intended as a substitute for professional medical care. Always follow yourcherrington hospitalcare professional's instructions. 12/14/2021 00:51:30 COVID-19 Prevent the Spread of COVID-19 If You Are Sick (04/06/2020) (Custom) Prevent the Spread of COVID-19 If You Are Sick Accessible version: https://www.cdc.gov/coronavirus/2019-ncov/wa-hzo-uwh-sick/zdgsb-vaxw-ajbb.html If you are sick with COVID-19 or [...] Animals if you have questions about pets: https://www.cdc.gov/coronavirus/2019ncov/faq.html#KZSTJ77guhkukq Monitor your symptoms. Common symptoms of COVID-19 [...] and need to call 911, notify the wet and dry sugar bin operator that you have or think you [...] clean your hands with an alcohol-based hand breaker layer that contains at least 60% alcohol. Clean your hands often. Wash your hands often with soap and water for at least 20 seconds. This is especially important after blowing your nose, coughing, or sneezing; going to the bathroom; and before eating or preparing food. Use hand breaker layer if soap and water are not available. Use an alcohol-based hand breaker layer with atleast 60% alcohol, covering all surfaces of your hands and rubbing them together until they feel dry. Soap and water are the best option, especially if your hands are visibly dirty. \ Avoid touching your eyes, nose, and mouth with unwashed hands. Avoid sharing personal household items. Do not share dishes, drinking glasses, cups, eating utensils, towels, or bedding with other people in your home. Wash these items thoroughly after using them with soap and water or put them in the authorization manager. Clean all high-touch surfaces everyday. Clean [...] or body fluids on them. Use household medical superintendent and disinfectants. Clean the area or item [...] Up Care 12/13/2021 23:14:18 With:ARTIE JACKSON Address: [address] [place] [id number] Business (1) When:2-4 days Comments:You may return anytime for further work-up. [facility] 10-17-2021 Hospital Discharge instructions* Instructions* Bernie Knight APRN - [facility] - 09/04/2021 Take tylenol for pain * Attachments The following attachments cannot be sent through Care Everywhere. * Tendon Injury (Tendinopathy) (Greek) documented in this [facility] Work Phone: 1(117) 442-796210-15-2021 Hospital Discharge instructions Patient Education 09/02/2021 15:00:23 [...] for the time advised. You may use bwas-apu-puqpqka pain medicine to control pain, unless another [...] provider when it is safe to begin eblkf-tf-xqrhnq exercises. Sometimes fractures don t show up [...] hand becomes cold, blue, numb, or tingly [id number] [employer]. [address] [place] [address], [place] [address]. All rights reserved. This information is not intended as a substitute for professional medical care. Always follow yourhealthcare professional's instructions. Follow Up Care 09/02/2021 14:35:30 With:VIANEY JACKSON MD Address: [phone] When:2-4 days [facility] Evaluation + Plan note No data available for this section [facility] evaluation + Plan note Future Appointments Appointment Date:06/17/2024 10:15:00 AM Scheduled Provider: Location:[facility] Appointment Type:CV Hospital Follow Up [facility] evaluation note* Diagnosis Finger swelling- Primary Swelling of limb Pain of finger of left hand Pain in limb documented in this encounter [facility] Work Phone: Evaluation note* Diagnosis Pain in right foot- Primary Pain in soft tissues of limb documented in this encounter [facility] Maptiaaluation note* Diagnosis Diabetes mellitus with proteinuria (CMS/HCC) (HCC)- Primary Elevated serum creatinine Other nonspecific findings on examination of blood documented in this encounter [facility]* Diagnosis Type 2 diabetes mellitus with diabetic polyneuropathy, with long-term current use of insulin (CMS/HCC) (HCC) documented in this encounter [facility]* Diagnosis Hyperkalemia- Primary Hyperpotassemia documented in this encounter [facility]* Diagnosis Type 2 diabetes mellitus with diabetic polyneuropathy, with long-term current use of insulin (CMS/HCC) (HCC) Diabetic polyneuropathy associated with type 2 diabetes mellitus (CMS/HCC) (HCC) Diabetes mellitus with proteinuria (CMS/HCC) (HCC) documented in this encounter [facility]* Diagnosis Type 2 diabetes mellitus with diabetic polyneuropathy, with long-term current use of insulin (CMS/HCC) (HCC)- Primary documented in this encounter [facility]* Diagnosis Type 2 diabetes mellitus with diabetic polyneuropathy, with long-term current use of insulin (CMS/HCC) (HCC) Class 2 obesity due to excess calories without serious comorbidity with body mass index (BMI) of 38.0 to 38.9 in adult documented in this encounter [facility]* Diagnosis Urinary frequency- Primary documented in this encounter [facility]* Diagnosis Type 2 diabetes mellitus with diabetic polyneuropathy, with long-term current use of insulin (CMS/HCC) (HCC) Diabetic polyneuropathy associated with type 2 diabetes mellitus (CMS/HCC) (HCC) Diabetes mellitus with proteinuria (CMS/HCC) (HCC) documented in [facility]* Diagnosis Hyperlipidemia LDL goal <70 Other and unspecified hyperlipidemia documented in this encounter [facility]* Diagnosis Hyperlipidemia LDL goal <70 Other and unspecified hyperlipidemia documented in this encounter [facility]* Diagnosis Type 2 diabetes mellitus with diabetic polyneuropathy, with long-term current use of insulin (CMS/HCC) (HCC) Diabetic polyneuropathy associated with type 2 diabetes mellitus (CMS/HCC) (HCC) Diabetes mellitus with proteinuria (CMS/HCC) (HCC) documented in this encounter [facility]* Diagnosis Type 2 diabetes mellitus with diabetic polyneuropathy, with long-term current use of insulin (CMS/HCC) (HCC)- Primary Chronic renal disease, stage IV (HCC) Chronic kidney disease, Stage IV (severe) documented in this encounter [facility]* Diagnosis Type 2 diabetes mellitus with diabetic polyneuropathy, with long-term current use of insulin (CMS/HCC) (HCC) Diabetic polyneuropathy associated with type 2 diabetes mellitus (CMS/HCC) (HCC) documented in this encounter [facility]* Diagnosis Type 2 diabetes mellitus with diabetic polyneuropathy, with long-term current use of insulin (CMS/HCC) (HCC) Diabetic polyneuropathy associated with type 2 diabetes mellitus (CMS/HCC) (HCC) 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) [facility]* Diagnosis Type 2 diabetes mellitus with diabetic polyneuropathy, with long-term current use of insulin (CMS/HCC) (HCC) Chronic renal disease, stage IV (HCC) Chronic kidney disease, Stage IV (severe) documented in this encounter [facility]* Diagnosis Hyperlipidemia LDL goal <70 Other and unspecified hyperlipidemia [facility]* Diagnosis Type 2 diabetes mellitus with diabetic polyneuropathy, with long-term current use of insulin (HCC) [facility]* Diagnosis Essential hypertension- Primary Unspecified essential hypertension [facility]* Diagnosis Type 2 diabetes mellitus with diabetic polyneuropathy, with long-term current use of insulin (HCC)- Primary Chronic renal disease, stage IV (HCC) Chronic kidney disease, Stage IV (severe) Essential hypertension Unspecified essential hypertension Gastroesophageal reflux disease, unspecified whether esophagitis present Hyperlipidemia LDL goal <70 Other and unspecified hyperlipidemia Essential hypertension Unspecified essential hypertension documented in this encounter [facility]* Diagnosis Type 2 diabetes mellitus with diabetic polyneuropathy, with long-term current use of insulin (HCC)- Primary Chronic renal disease, stage IV (HCC) Chronic kidney disease, Stage IV (severe) Essential hypertension Unspecified essential hypertension Gastroesophageal reflux disease, unspecified whether esophagitis present Hyperlipidemia LDL goal <70 Other and unspecified hyperlipidemia Diabetes mellitus with proteinuria (CMS/HCC) (HCC) ([facility])- Primary Type 2 diabetes mellitus with diabetic polyneuropathy, with long-term current use of insulin ([facility]) Encounter for diabetic foot exam ([facility]) Paroxysmal atrial fibrillation (HCC) Atrial fibrillation Cardiomyopathy, [...] Influenza vaccine refused documented in this encounter [facility]* Diagnosis Right foot pain- Primary Pain in soft tissues of limb Right foot pain Pain in soft tissues of limb documented in this encounter [facility]* Diagnosis Charcot's joint of right foot Type 2 diabetes mellitus with diabetic polyneuropathy, with long-term current use of insulin (CMS/HCC) (HCC) Diabetic polyneuropathy associated with type 2 diabetes mellitus (CMS/HCC) (HCC) documented in this encounter [facility]* Diagnosis Right foot pain Pain in soft tissues of limb documented in this encounter [facility]* Diagnosis Type 2 diabetes mellitus with diabetic polyneuropathy, with long-term current use of insulin (CMS/HCC) (HCC)- Primary Diabetic polyneuropathy associated with type 2 diabetes mellitus (CMS/HCC) (HCC) Diabetes mellitus with proteinuria ([facility]/HCC) ([facility]) Encounter for diabetic foot exam ([facility]) Essential hypertension Unspecified essential hypertension Hyperlipidemia LDL goal <70 Other and unspecified hyperlipidemia Cigarette nicotine dependence without complication Class 2 obesity due to excess calories without serious comorbidity with body mass index (BMI) of 38.0 to 38.9 in adult Gastroesophageal reflux disease, unspecified whether esophagitis present Screening for prostate cancer Special screening for malignant neoplasm of prostate documented in this encounter [facility]* Diagnosis Diabetes mellitus with proteinuria ([facility]) ([facility])- Primary Elevated serum creatinine Other nonspecific findings on examination of blood Type 2 diabetes mellitus with diabetic polyneuropathy, with long-term current use of insulin ([facility]) ([facility]) Poorly controlled type 2 diabetes mellitus ([facility]) ([facility]) [facility] Diagnosis Type 2 diabetes mellitus with diabetic polyneuropathy, with long-term current use of insulin ([facility]) ([facility]) Diabetic polyneuropathy associated with type 2 diabetes mellitus ([facility]) ([facility]) Diabetes mellitus with proteinuria ([facility]) ([facility]) [facility] Diagnosis Diabetic eye exam ([facility]) ([facility])- Primary Examination of eyes and vision Type 2 diabetes mellitus with diabetic polyneuropathy, with long-term current use of insulin ([facility]) ([facility]) documented in this encounter [facility]* Diagnosis Type 2 diabetes mellitus with diabetic polyneuropathy, with long-term current use of insulin ([facility])- Primary Chronic renal disease, stage IV (HCC) [...] unspecified CKD stage documented in this encounter [facility]* Diagnosis Type 2 diabetes mellitus with diabetic polyneuropathy, with long-term current use of insulin ([facility])- Primary Chronic renal disease, stage IV (HCC) Chronic kidney disease, Stage IV (severe) Essential hypertension Unspecified essential hypertension Gastroesophageal reflux disease, unspecified whether esophagitis present Hyperlipidemia LDL goal <70 Other and unspecified hyperlipidemia Type 2 diabetes mellitus with diabetic polyneuropathy, with long-term current use of insulin ([facility]) [facility] Diagnosis Type 2 diabetes mellitus with [...] male genital organs documented in this encounter [facility]* Diagnosis Type 2 diabetes mellitus with diabetic polyneuropathy, with long-term current use of insulin ([facility])- Primary Chronic renal disease, stage IV (HCC) [...] male genital organs documented in this encounter [facility] note* Diagnosis Type 2 diabetes mellitus with [...] male genital organs documented in this encounter [facility] note* Diagnosis Type 2 diabetes mellitus with diabetic polyneuropathy, with long-term current use of insulin (HCC)- Primary Chronic renal disease, stage IV (HCC) Chronic kidney disease, Stage IV (severe) Essential hypertension Unspecified essential hypertension Gastroesophageal reflux disease, unspecified whether esophagitis present Hyperlipidemia LDL goal <70 Other and unspecified hyperlipidemia Diabetes mellitus with proteinuria ([facility]/HCC) (HCC) (HCC) Type 2 diabetes mellitus with diabetic polyneuropathy, with long-term current use of insulin ([facility]) documented in this encounter [facility] note* Diagnosis Type 2 diabetes mellitus with [...] of insulin (HCC) documented in this encounter [facility] note* Diagnosis Type 2 diabetes mellitus with [...] wound of skin documented in this encounter [facility] note* Diagnosis Type 2 diabetes mellitus with [...] of insulin (HCC) documented in this encounter [facility] note* Diagnosis Type 2 diabetes mellitus with [...] and unspecified hyperlipidemia documented in this encounter [facility]* Diagnosis Type 2 diabetes mellitus [...] Unspecified essential hypertension documented in this encounter [facility] Discharge instructions No data available for this section [facility] Reason for referral (narrative)* Consultation (Routine) - Pending Review Specialty Diagnoses / Procedures Referred By Contac t Referred To Contact Nephrology Diagnoses Elevated serum creatinine Diabetes mellitus with proteinuria (CMS/HCC) (HCC) Procedures [place] OFFICE/OUTPATIENT NEW HIGH MDM 60-74 MINUTES Phoebe Adam APRN - REGULATORY AFFAIRS INTERN [address] [place] [address] Keyona Paige MD [address] [place] [address], [address] [place] [address] Referral ID Status Reason Start Date Expiration Date Visits Requested Visits Authorized [id number] Pending Review Specialty Services Required 03/21/2023 03/20/2024 1 1 [facility] ([facility] Consultation (Routine) - Pending Review Specialty Diagnoses / Procedures Referred By Contac t Referred To Contact Ophthalmology Diagnoses Type 2 diabetes mellitus with diabetic polyneuropathy, with long-term current use of insulin (CMS/HCC) (HCC) Procedures [place] OFFICE/OUTPATIENT NEW HIGH MDM 60-74 MINUTES Phoebe Adam, DIRECTOR OF OPERATIONS - REGULATORY AFFAIRS INTERN [address] [place] [address] Rae Mccarthy MD [address] [place] [phone] Referral ID Status Reason Start Date Expiration Date Visits Requested Visits Authorized [id number] Pending Review Specialty Services Required 01/08/2023 01/08/2024 1 1 [facility] Consultation (Routine) - Pending Review Specialty Diagnoses / Procedures Referred By Contac t Referred To Contact Endocrinology Diagnoses Diabetes mellitus with proteinuria (CMS/HCC) (HCC) Type 2 diabetes mellitus with diabetic polyneuropathy, with long-term current use of insulin (CMS/HCC) (HCC) Poorly controlled type 2 diabetes mellitus (CMS/HCC) (HCC) Procedures [place] OFFICE/OUTPATIENT NEW HIGH MDM 60-74 MINUTES Phoebe Adam, DIRECTOR OF OPERATIONS - REGULATORY AFFAIRS INTERN [address] [place] [address] [facility] [address] [place] [phone] Referral ID Status Reason Start Date Expiration Date Visits Requested Visits Authorized [id number] Pending Review Specialty Services Required 01/10/2023 01/10/2024 1 1 * Consultation (Routine) - Pending Review Specialty Diagnoses / Procedures Referred By Contac t Referred To Contact Nephrology Diagnoses Diabetes mellitus with proteinuria ([facility]) (HCC) Elevated serum creatinine Procedures [place] OFFICE/OUTPATIENT NEW HIGH MDM 60-74 MINUTES Phoebe Adam APRN - REGULATORY AFFAIRS INTERN [address] [place] [address] Sierra Ward MD [address] [place] [address], [place] [address] Referral ID Status Reason Start Date Expiration Date Visits Requested Visits Authorized [id number] Pending Review Specialty Services Required 01/10/2023 01/10/2024 1 1 [facility] (narrative)* Consultation (Routine) - Pending Review Specialty Diagnoses / Procedures Referred By Contac t Referred To Contact Ophthalmology Diagnoses Type 2 diabetes mellitus with diabetic polyneuropathy, with long-term current use of insulin (CMS/[facility]) (HCC) Diabetic eye exam ([facility]) ([facility]) Procedures [place] OFFICE/OUTPATIENT NEW HIGH MDM 60-74 MINUTES Phoebe Adam DIRECTOR OF OPERATIONS - REGULATORY AFFAIRS INTERN [address] [place] [address] Referral ID Status Reason Start Date Expiration Date Visits Requested Visits Authorized [id number] Pending Review Specialty Services Required 01/22/2023 01/22/2024 1 1 [facility] (Closed)Summary note* EMILIANO Blount: PERFORM Event Display: Patient Summary Documents Authored Date: [id number] [facility] Summary note* Bess Parker: PERFORM Event Display: Patient Summary Documents Authored Date: [id number] [facility] Discharge Instructions * Instructions* Tuyet Gupta, DASHAWN [...] one [x] Call my office today (office [phone]) for follow up appointment in 3 days. [x] Have your prescriptions filled promptly and take as prescribed. [x] Do not be alarmed if blood appears on the bandage or if black and blue ramachandran appear. Some silver dollar size blood on outer bandage is ok. If this gets larger Please call me. My cell phone is [phone]. 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 [address] Referral ID Status Reason Start Date Expiration Date V isits Requested Visits Authorized [id number] Pending Review 1 1 Specialty Diagnoses / Procedures Referred By Contlatrice t Referred To Contact Shreya Olivera APRN - REGULATORY AFFAIRS INTERN [address] [facility] [place] [address] Referral ID Status Reason Start Date Expiration Date Visits Re quested Visits Authorized [id number] Closed 1 1 Status Reason Specialty Diagnoses / Procedures Referred By Contact Referred To Contact Open Specialty Services Required Orthopedic Surgery: Hand Surgery / Orthopedic Surgery Diagnoses Finger swelling Pain of finger of left hand Bernie Knight APRN - REGULATORY AFFAIRS INTERN [address] [place] [address] [address] [address] [place] [address] Scheduling Instructions [facility] Orthopedics Hand/Wrist Upper Extremities - [place] [address], [address] [place] [address] Summary Purpose Family History No Family History [...] Work Health Maintenance Echo- had done in [facility] Flu- declines Hiv/Hep C screen- declines [...] Med Refill 01/22/2023 Reason Onset Date Comments [facility] 01/22/2023 [facility] Reason Onset Date Comments [...] and tx Satnam Galan DO [address] [place] [address] Phone: tel:[phone] fax: [facility] [place] [address] [place] [address] Phone: tel: fax: Referral ID Status Reason Start Date Expiration Date Visits Re quested Visits Authorized [id number] Closed 09/23/2024 09/23/2025 1 1 Reason Onset [...] Chronic renal disease, stage IV (HCC) Procedures [place] OFFICE/OUTPATIENT NEW HIGH MDM 60 MINUTES Phoebe Adam S, DIRECTOR OF OPERATIONS - REGULATORY AFFAIRS INTERN [address] [facility] [place] [address] [place] [address] Phone: tel: fax: Fidel Gavin MD [address] [facility] [address] [place] [address] Phone: tel: fax: Referral ID Status Reason Start Date Expiration Date V isits Requested Visits Authorized [id number] Closed Specialty Services Required 12/15/2024 12/15/2025 1 [...] section and content) DATE CREATED AUTHOR 01/12/2022 [facility] DATE CREATED AUTHOR AUTHOR'S ORGANIZ ATION 07/23/2024 [facility] DATE CREATED AUTHOR AUTHOR'S ORGANIZ ATION 03/08/2025 [facility] DATE CREATED AUTHOR AUTHOR'S ORGANIZ ATION 03/30/2025 [facility] DATE CREATED AUTHOR AUTHOR'S ORGANIZ ATION 09/06/2025 [facility] DATE CREATED AUTHOR AUTHOR'S ORGANIZ ATION 09/06/2025 [facility] Care Teams (unrecognized sec tion and content) Commanding Officer Motorized Squad Relationship Specialty Start Date End Date Artie Jackson MD [address] [place] [id number] PCP - General 08/27/17 Commanding Officer Motorized [employer] Relationship Specialty Start Date End Date Artie Jackson MD [address] [place] [address] [id number] PCP - General 08/27/17 Commanding Officer [employer]ized [employer] Relationship Specialty Start Date End Date Artie Jackson MD [address] [facility] [place] [id number] PCP - General 08/27/17 Commanding Officer Motorized Squad Relationship Specialty Start Date End Date Artie Jackson MD [address] [place] [place] [place] [address] PCP - General 08/27/17 Commanding Officer Motorized Squad Relationship Specialty Start Date End Date Artie Jackson MD [address] [facility] [place] [address] PCP - General 08/27/17 Commanding Officer Motorized Squad Relationship Specialty Start Date End Date Artie Jackson MD [address] [facility] [place] [address] PCP - General 08/27/17 Commanding Officer Motorized Squad Relationship Specialty Start Date End Date Artie Jackson MD [address] [facility] [place] [address] PCP - General 08/27/17 Commanding Officer Motorized Squad Relationship Specialty Start Date End Date Artie Jackson MD [address] [facility] [place] [address] PCP - General 08/27/17 Commanding Officer Motorized Squad Relationship Specialty Start Date End Date Artie Jackson MD [address] [facility] [address] PCP - General 08/27/17 Commanding Officer Motorized Squad Relationship Specialty Start Date End Date Artie Jackson MD [address] [facility] [place] [address] PCP - General 08/27/17 Commanding Officer Motorized Squad Relationship Specialty Start Date End Date Artie Jackson MD [address] [place] [place] [address] PCP - General 08/27/17 Commanding Officer Motorized Squad Relationship Specialty Start Date End Date Artie Jackson MD [address] [place] [address] PCP - General 08/27/17 Commanding Officer Motorized Squad Relationship Specialty Start Date End Date Artie Jackson MD [address] [place] [place] [address] PCP - General 08/27/17 Commanding Officer Motorized Squad Relationship Specialty Start Date End Date Artie Jackson MD [address] [place] [place] [address] PCP - General 08/27/17 Commanding Officer Motorized Squad Relationship Specialty Start Date End Date Artie Jackson MD [address] [place] [address] PCP - General 08/27/17 Commanding Officer Motorized Squad Relationship Specialty Start Date End Date Artie Jackson MD [address] [place] [address] PCP - General 08/27/17 Commanding Officer Motorized Squad Relationship Specialty Start Date End Date Artie Jackson MD [address] [place] [address] PCP - General 08/27/17 Commanding Officer Motorized Squad Relationship Specialty Start Date End Date Artie Jackson MD [address] [facility] [place] [address] PCP - General 08/27/17 Commanding Officer Motorized Squad Relationship Specialty Start Date End Date [facility] [place] [address] PCP - General 08/27/17 Commanding Officer Motorized Squad Relationship Specialty Start Date End Date Artie Jackson [facility] [place] [address] PCP - General 08/27/17 Commanding Officer Motorized Squad Relationship Specialty Start Date End Date Artie Jackson [facility] [place] [address] PCP - General 08/27/17 Commanding Officer Motorized Squad Relationship Specialty Start Date [place] [address] PCP - General 08/27/17 Commanding Officer Motorized Squad Relationship Specialty Start Date End Date Artie Jackson [facility] [place] [address] PCP - General 08/27/17 Commanding Officer Motorized Squad Relationship Specialty Start Date End Date Artie Jackson [facility] [place] [address] PCP - General 08/27/17 Commanding Officer Motorized Squad Relationship Specialty Start Date End Date Artie Jackson [facility] [place] [address] PCP - General 08/27/17 Commanding Officer Motorized Squad Relationship Specialty Start Date End Date Artie Jackson [facility] [place] [address] PCP - General 08/27/17 Commanding Officer Motorized Squad Relationship Specialty Start Date End Date Artie Jackson MD [address] [place], [place] [address] [address] PCP - General 08/27/17 Commanding Officer Motorized Squad Relationship Specialty Start Date End Date Artie Jackson MD [address] [place] [address] PCP - General 08/27/17 Commanding Officer Motorized Squad Relationship Specialty Start Date End Date Artie Jackson MD [address] [place], [place] [address] [address] PCP - General 08/27/17 Commanding Officer Motorized Squad Relationship Specialty Start Date End Date Artie Jackson MD [address] [place] [address] PCP - General 08/27/17 Commanding Officer Motorized Squad Relationship Specialty Start Date End Date Artie Jackson MD [address] [place], [place] [address] [address] PCP - General 08/27/17 Garrick Velasquez MD [address] [address] Surgeon Urology 10/21/24 Commanding Officer Motorized [employer] Relationship Specialty Start Date End Date Artie Jackson MD [address] [place], [place] [address] [address] PCP - General 08/27/17 Garrick Velasquez MD [address] [address] Surgeon Urology 10/21/24 Commanding Officer Motorized [employer] Relationship Specialty Start Date [place] [address] PCP - General 08/27/17 Garrick Velasquez MD [address] [address] Surgeon Urology 10/21/24 Commanding Officer Motorized [employer] Relationship Specialty Start Date [place] [address] PCP - General 08/27/17 Garrick Velasquez MD [address] [address] Surgeon Urology 10/21/24 Commanding Officer Motorized [employer] Relationship Specialty Start Date [place] [address] PCP - General 08/27/17 Garrick Velasquez MD [address] [address] Surgeon Urology 10/21/24 Commanding [employer] Relationship Specialty Start Date [place] [address] PCP - General 08/27/17 Garrick Velasquez MD [address] [address] Surgeon Urology 10/21/24 Commanding Officer [employer] Relationship Specialty Start Date End Date Artie Jackson MD 25 [facility] [place] [address] PCP - General 08/27/17 Garrick Velasquez MD 201 [facility] [address] [place] [address] Surgeon Urology 10/21/24 Jose Morrison MD 95 [facility] [address] [place] [address] Urology 01/22/25 Commanding Officer [employer] Relationship Specialty Start Date [place] [address] PCP - General 08/27/17 Garrick Velasquez MD 201 [facility] [address] [place] [address] Surgeon Urology 10/21/24 Jose Morrison MD 95 [facility] [address] [place] [address] Urology 01/22/25 Commanding Officer [employer] Relationship Specialty Start Date End Date Artie Jackson MD 25 [facility] [place] [address] PCP - General 08/27/17 Garrick Velasquez MD 201 [facility] [address] [place] [address] Surgeon Urology 10/21/24 Jose Morrison MD 95 [facility] [address] [place] [address] Urology 01/22/25 Commanding Officer [employer] Relationship Specialty Start Date End Date Artie Jackson MD 25 [facility] [place] [address] PCP - General 08/27/17 Garrick Velasquez MD 201 [facility] 3 [place] [address] Surgeon Urology 10/21/24 Jose Morrison MD 95 [facility] [address] [place] [address] Urology 01/22/25 Commanding Officer [employer] Relationship Specialty Start Date End Date Artie Jackson MD 25 [place] [address] PCP - General 08/27/17 Garrick Velasquez MD 201 [facility] 3 [place] [address] Surgeon Urology 10/21/24 Jose Morrison MD 95 [facility] 165 [place] [address] Urology 01/22/25 Commanding Officer [employer] Relationship Specialty Start Date End Date Artie Jackson MD 25 [facility] [place] [address] PCP - General 08/27/17 Garrick Velasquez MD 201 [facility] 3 [place] [address] Surgeon Urology 10/21/24 Jose Morrison MD 95 [facility] 165 [place] [address] Urology 01/22/25 Commanding Officer [employer] Relationship Specialty Start Date [place] [address] PCP - General 08/27/17 Garrick Velasquez MD 201 [facility] 3 [place] [address] Surgeon Urology 10/21/24 Jose Morirson MD [address] [address] Urology 01/22/25 Commanding Officer [employer] Relationship Specialty Start Date [place] [address] PCP - General 08/27/17 Garrick Velasquez MD [address] [address] Surgeon Urology 10/21/24 Jose Morrison MD [address] [address] Urology 01/22/25 Commanding Officer [employer] Relationship Specialty Start Date [place] [address] PCP - General 08/27/17 Garrick Velasquez MD [address] [address] Surgeon Urology 10/21/24 Jose Morrison MD 95 [facility] [address] [place] [address] Urology 01/22/25 Commanding Officer [employer] Relationship Specialty Start Date End Date Artie Jackson MD [facility] [place] [address] PCP - General 08/27/17 Garrick Velasquez MD 201 [facility] 3 [place] [address] Surgeon Urology 10/21/24 Jose Morrison MD [address] [address] Urology 01/22/25 Commanding Officer [employer] Relationship Specialty Start Date End Date Artie Jackson [place] [address] PCP - General 08/27/17 Garrick Velasquez MD [address] [address] Surgeon Urology 10/21/24 Jose Morrison MD 95 [facility] [address] [place] [address] Urology 01/22/25 Commanding Officer [employer] Relationship Specialty Start Date End Date Artie Jackson MD [facility] [place] [address] PCP - General 08/27/17 Garrick Velasquez MD 201 [facility] 3 [place] [address] Surgeon Urology 10/21/24 Jose Morrison MD 95 [facility] [address] [place] [address] Urology 01/22/25 Commanding Officer [employer] Relationship Specialty Start Date [place] [address] PCP - General 08/27/17 Garrick Velasquez MD 201 [facility] 3 [place] [address] Surgeon Urology 10/21/24 Jose Morrison MD [address] [address] Urology 01/22/25 Commanding Officer [employer] Relationship Specialty Start Date End Date [facility] [place] [address] PCP - General 08/27/17 Garrick Velasquez MD 201 [facility] 3 [place] [address] Surgeon Urology 10/21/24 Jose Morrison MD 95 [facility] [address] [place] [address] Urology 01/22/25 Commanding Officer [employer] Relationship Specialty Start Date End Date Artie Jackson MD [facility] [place] [address] PCP - General 08/27/17 Garrick Velasquez MD 201 [facility] 3 [place] [address] Surgeon Urology 10/21/24 Jose Morrison MD [address] [address] Urology 01/22/25 Commanding [employer] Relationship Specialty Start Date End Date Artie Jackson MD [address] [place] [address], [address] [place], [place] [id number] PCP - General 08/27/17 Garrick Velasquez MD [address] [address] Surgeon Urology 10/21/24 Jose Morrison MD [address] [address] Urology 01/22/25 FOR RECORDS PERTAINING TO PATIENTS [...] BE BASED ON THE PRIMARY CLINICAL RECORDS. [facility]. provides no warranty or guarantee of the accuracy or completeness of information in this document.
[2025-09-08] VITALS (29 sets, daily range): BP systolic 115–196; BP diastolic 53–103; PULSE 82–110; RESP 14–18; TEMP 35.9–37.1; O2SAT 92–100; BMI 38.8; BMI 37.0
[2025-09-08 05:59] LABS: Hematocrit 23.3 % (40-54); Hemoglobin 7.0 g/dL (13.0-16.5); Immature Granulocytes Count 0.090 X10^3/uL (0.0-0.0); Mean Corp Hgb Conc 30.0 g/dL (32-36); Mean Corpuscular Volume 85.7 fL (80-94); Mean Platelet Vol. 10.8 fl (6.2-12.0); NRBC Flagged by Analyzer 0 % (0-5); Platelet Count 204 K/mm3 (150-450); RBC Distribution Width CV 18.6 % (11.6-14.6); RBC Distribution Width SD 57.4 fl (35.1-43.9); Red Blood Count 2.72 M/mm3 (4.6-6.2); White Blood Count 9.4 K/mm3 (4.4-11.0)
[2025-09-08 06:29] LABS: Anion Gap 18 (5-15); BUN 65 mg/dL (4-19); BUN/Creat Ratio 6.8 RATIO (10-20); Calcium,Total 8.6 mg/dL (7.6-11.0); Carbon Dioxide 17.1 mmol/L (21.0-32.0); Chloride 100 mmol/L (98-108); Estimated Creatinine Clearance 14.07 ml/min (50-250); Glucose 308 mg/dL (70-99); Potassium 5.8 mmol/L (3.3-5.1)
--- NOTE | 2025-09-08 08:27 | NURSING ---
Pt states, my catheter is swollen and sore. Dialysis cath to right chest assessed. Site is reddened and swollen, tender to touch. Dialysis coordinator Raul made aware. After assessing site, Raul made Dr. Franklin and Dr. Paige aware. Orders recieved.
[2025-09-08] MEDS: PureFlow B 2K Dialysis Soln 1 BAG 6 BAG PF (08:36)
[2025-09-08] MEDS: 0.9% Normal Saline 1,000 ML IV.SOLN. 1000 ML OPERA.SITE (08:36)
--- NOTE | 2025-09-08 09:06 | NUR.TO.PHY ---
language pathologist Jennifer informed this Dialysis Coordinator (DC) of dialysis cath findings. DC inspected cvc exit site & found site to be reddened, swollen, & tender. No purulent drainage noted from exit site during initial inspection. Both cvc lumens flushed well & no purulent drainage note in stems when aspirated. Pt readily states that he showers with a cloth dressing at home, then immediately replaces the wet dressing with a dry dressing. pt educated extensively on cvc care at home including: not recommended to shower with a cvc, not recommended to change own dressings at home. Discussed findings with Dr. Franklin & Dr. Paige. language pathologist Jennifer later reports that during cath care purulent drainage noted at exit site while cleansing the site. Exit site culture swab & blood cultures ordered per nephrology & bacitrin ordered for exit site.
--- NOTE | 2025-09-08 10:58 | PCM.PN.HOSP ---
Reason for Visit Chief Complaint: Generalized weakness, missed dialysis Objective Data Objective Data Vital Signs: Vital Signs Temp Pulse Resp BP Pulse Ox O2 Del Method 98.5 F 98 16 158/86 H 92 Room Air 09/08/25 08:10 09/08/25 10:40 09/08/25 10:40 09/08/25 10:40 09/08/25 10:40 09/08/25 10:40 Oxygen Delivery Method Room Air Weight: 302 lb 7.587 oz Body Mass Index (BMI) 38.8 Intake & Output: Intake and Output for Last 24 Hours 09/06/25 09/07/25 09/08/25 23:59 23:59 23:59 Intake Total Output Total 300 / 300 Balance -300 / -300 Lab / Micro Data 09/08/25 04:54 09/08/25 04:54 Labs: Laboratory Results - last 24 hr 09/07/25 21:15: WBC 11.9 H, RBC 3.24 L, Hgb 8.4 L, Hct 27.4 L, MCV 84.6, MCH 25.9 L, MCHC 30.7 L, RDW Std Deviation 56.9 H, RDW Coeff of Adolfo 18.6 H, Plt Count 241, MPV 10.5, Immature Gran % (Auto) 1.200 H, Neut % (Auto) 72.3 H, Lymph % (Auto) 13.6 L, [place] % (Auto) 7.9, Eos % (Auto) 4.2, Baso % (Auto) 0.8, Absolute Neuts (auto) 8.6 H, Absolute Lymphs (auto) 1.62, Nucleated RBC % 0, Sodium 133, Potassium 6.7 H*, Chloride 97 L, Carbon Dioxide 18.0 L, Anion Gap 17 H, BUN 60 H, Creatinine 8.79 H*, Estim Creat Clear Calc 15.21 L, Est GFR (MDRD) Non-Af 7 L, BUN/Creatinine Ratio 6.8 L, Glucose 348 H, Calcium 8.6 09/07/25 22:51: POC Glucose 287 H 09/08/25 00:39: POC Glucose 295 H 09/08/25 04:54: WBC 9.4, RBC 2.72 L, Hgb 7.0 L, Hct 23.3 L, MCV 85.7, MCH 25.7 L, MCHC 30.0 L, RDW Std Deviation 57.4 H, RDW Coeff of Adolfo 18.6 H, Plt Count 204, MPV 10.8, Immature Gran % (Auto) 1.000 H, Neut % (Auto) 71.8 H, Lymph % (Auto) 14.4 L, [place] % (Auto) 9.4, Eos % (Auto) 2.8, Baso % (Auto) 0.6, Absolute Neuts (auto) 6.8, Absolute Lymphs (auto) 1.36, Nucleated RBC % 0, Sodium 135, Potassium 5.8 H, Chloride 100, Carbon Dioxide 17.1 L, Anion Gap 18 H, BUN 65 H, Creatinine 9.46 H*, Estim Creat Clear Calc 14.07 L, Est GFR (MDRD) Non-Af 6 L, BUN/Creatinine Ratio 6.8 L, Glucose 308 H, Hemoglobin A1c 12.2 H, Calcium 8.6 09/08/25 06:22: POC Glucose 269 H Radiography Diagnostic Testing: Radiology Impression Chest X-Ray 09/07/25 21:12 IMPRESSION: NO ACUTE FINDINGS. Reading Location: [address] Rhythm Strip Rhythm Strip: Sinus Rhythm Rate: 97 Ectopy: None Physical Exam Narrative Seen and examined. Patient denies any fever or chills. There is noticed pus/inflammation around the right tunneled Alysis catheter. Physical exam General: Alert, Oriented x3, Cooperative HEENT: Atraumatic, PERRLA, EOMI, Normocephalic. Oral: No Gingival or Mucosal Lesions/ Ulcerations Neck: Supple, No JVD, Negative Carotid Bruits Chest wall/Lungs: Air entry diminished in bilateral lung bases. No crepitation/rhonchi Cardiovascular: Regular rate and rhythm, Normal S1,S2, No M/G/R Abdomen: Bowel Sounds Present, Soft, Non Tender, Non-Distended : No dysuria. Still makes urine and about 300 mL/day. No renal angle tenderness. No suprapubic tenderness. Extremities: No edema, Capillary Refill Less than 3 Seconds Skin: Mild expression of pus at the exit point of right dialysis catheter. Tenderness and mild redness present. Musculoskeletal: No Tenderness to Palpation of Joints or Extremities Neurological: Cranial nerves II-XII grossly intact, DTR 2+/4. No acute focal neurological deficit. Psych/Mental Status: Normal Affect, Appropriate. Assessment & Plan Assessment/Plan (1) Diabetes: (2) A-fib: (3) Chronic anemia: (4) End stage renal disease on dialysis: (5) Acute hyperkalemia: (6) Hypertension: PLAN: Plan 50-year-old male was admitted after he missed dialysis, last dialysis was more than a week ago on Sunday. Feeling generalized weakness. No fever. Has been on dialysis for last 1 week. Patient is being admitted to PCU 1. Tunneled dialysis catheter infection/central line/exit site infection: Blood culture was ordered. Empirically started on IV vancomycin and Levaquin. ID was consulted and changed antibiotic to vancomycin and cefepime. General surgery Dr. Johnson was consulted for removal of tunneled dialysis catheter. Monitor blood culture. 2. End-stage kidney disease on Sunday but missed about 10 days of dialysis: Mild hyperkalemia, K5.8 BUN/creatinine 65/9.46. 17, anion gap 18. Patient was dialyzed today. Photocomposing Keyboard Operator consulted and discussed with him and he was of the same opinion with general surgery to remove the catheter. 3. Generalized weakness: PT and OT ordered 2.?Paroxysmal atrial fibrillation twelve:-lead EKG shows sinus rhythm 97 bpm. Rate is controlled. Anticoagulation hold prior to dialysis removal. Patient was on Eliquis. 3. Acute hyperkalemia?patient received insulin and glucose, calcium gluconate and albuterol inhalation treatments in the emergency room. EKG does not show signs of hyperkalemia. Patient was dialyzed in the morning 4. Hypertension?: Blood pressure was high 158/86-1 60/85. On hydralazine 50 mg 3 times daily. Noncompliant to medication. 5. Diabetes mellitus type 2: Glucose is high. Accu-Chek before meals and at bedtime with Humalog sliding scale coverage and hypoglycemia protocol. On glimepiride 8 mg daily 6. Severe anemia due to end-stage renal disease: Admitting H&H 8.4/27.4% dropped to 7.0/23.3%. No acute bleeding. DVT prophylaxis?bilateral SCDs CODE STATUS?full verified Microbiology Past 72 Hours 09/08/25 09:00 Wound exudate - No Site/Description Given Gram Stain - Final Laboratory Results 09/07/25 21:15: WBC 11.9 H, RBC 3.24 L, Hgb 8.4 L, Hct 27.4 L, MCV 84.6, MCH 25.9 L, MCHC 30.7 L, RDW Std Deviation 56.9 H, RDW Coeff of Adolfo 18.6 H, Plt Count 241, MPV 10.5, Immature Gran % (Auto) 1.200 H, Neut % (Auto) 72.3 H, Lymph % (Auto) 13.6 L, [place] % (Auto) 7.9, Eos % (Auto) 4.2, Baso % (Auto) 0.8, Absolute Neuts (auto) 8.6 H, Absolute Lymphs (auto) 1.62, Nucleated RBC % 0, Sodium 133, Potassium 6.7 H*, Chloride 97 L, Carbon Dioxide 18.0 L, Anion Gap 17 H, BUN 60 H, Creatinine 8.79 H*, Estim Creat Clear Calc 15.21 L, Est GFR (MDRD) Non-Af 7 L, BUN/Creatinine Ratio 6.8 L, Glucose 348 H, Calcium 8.6 09/07/25 22:51: POC Glucose 287 H 09/08/25 00:39: POC Glucose 295 H 09/08/25 04:54: WBC 9.4, RBC 2.72 L, Hgb 7.0 L, Hct 23.3 L, MCV 85.7, MCH 25.7 L, MCHC 30.0 L, RDW Std Deviation 57.4 H, RDW Coeff of Adolfo 18.6 H, Plt Count 204, MPV 10.8, Immature Gran % (Auto) 1.000 H, Neut % (Auto) 71.8 H, Lymph % (Auto) 14.4 L, [place] % (Auto) 9.4, Eos % (Auto) 2.8, Baso % (Auto) 0.6, Absolute Neuts (auto) 6.8, Absolute Lymphs (auto) 1.36, Nucleated RBC % 0, Sodium 135, Potassium 5.8 H, Chloride 100, Carbon Dioxide 17.1 L, Anion Gap 18 H, BUN 65 H, Creatinine 9.46 H*, Estim Creat Clear Calc 14.07 L, Est GFR (MDRD) Non-Af 6 L, BUN/Creatinine Ratio 6.8 L, Glucose 308 H, Hemoglobin A1c 12.2 H, Calcium 8.6 09/08/25 06:22: POC Glucose 269 H Charges/Coding Addendum Addendum: Total time of the visit including total time spent in counseling or coordination of care, (more than 50% of the total time, spent in obtaining medical information from nurses and other ancillary care providers ,explaining to the patient about labs, imaging, diagnosis and management of active complex medical conditions), severe medical conditions and suspected tunneled Alysis catheter infection/exit site infection with discussion with nipping machine operator, infectious disease sfdc consultant and the surgeon review of labs and imaging is 40 minutes. Visit Charges Inpatient E&M: 45629 Subs Hosp L3
[2025-09-08] MEDS: APIXABAN 5 MG TABLET PO (13:56)
[2025-09-08] MEDS: levoFLOXacin IV 500 MG/100 ML BAG 100 MG IV (13:56)
[2025-09-08] MEDS: Metoprolol(XL)Succ 100 MG Tablet PO (13:57)
--- NOTE | 2025-09-08 14:16 | PCM.CONS.GEN ---
Assessment & Plan Assessment/Plan (1) End stage renal disease on dialysis: (2) Central line infection: PLAN: Bcx pending, recommend gen surgery consult for line removal. Will cover with vanc/cefepime for now. Will follow, thank you, d/w Dr. Franklin HPI Consult Data Date of Consult: 09/08/25 HPI Narrative Reason for Consultation: line infection HPI Narrative: GURINDER HAHN, is a 50 M with ESRD, presented with several days weakness, swelling at R chest permacath. Line in place for 3-4 months. Some tenderness at site, drainage reported. No fever or chills. No dysuria, no abd pain. Admitted here on vanc/levaquin, feeling about the same. Full ROS performed and neg except as noted above. [facility] Medical History Anemia, unspecified Acute kidney failure, unspecified Obstructive and reflux uropathy, unspecified Polyneuropathy, unspecified Jean gangrene Debility Type 2 diabetes mellitus Decubitus ulcer of right buttock, stage 4 Home Medications ?Medication ?Instructions ?Recorded ?Last Taken ?Type apixaban 5 mg tablet (Eliquis) 5 mg PO BID 06/05/24 09/07/25 History bumetanide 1 mg tablet 1 mg PO BID 06/05/24 Unknown History gabapentin 300 mg capsule 300 mg PO DAILY 06/05/24 Unknown History glimepiride 4 mg tablet 8 mg PO DAILY 06/05/24 Unknown History insulin glargine 100 unit/mL (3 30 unit subcut QHS 06/05/24 Unknown History mL) subcutaneous pen (Lantus Solostar U-100 Insulin) insulin lispro 100 unit/mL 1 sliding scale dose subcut TID DM 06/05/24 Unknown History subcutaneous pen (Humalog KwikPen (U-100) Insulin) metoprolol succinate 100 mg 100 mg PO BID 06/05/24 Unknown History tablet,extended release 24 hr omeprazole 40 mg capsule,delayed 40 mg PO BID 06/05/24 Unknown History release rosuvastatin 10 mg tablet 10 mg PO DAILY 06/05/24 Unknown History acetaminophen 325 mg tablet 650 mg PO Q8H PRN pain 06/18/24 Unknown History sodium hypochlorite 0.25 % 1 applic topical BID 06/18/24 Unknown History solution (Dakin's Solution) Allergy/AdvReac Type Severity Reaction Status Date / Time ampicillin Allergy Unknown PT UNABLE Verified 09/07/25 19:54 TO RESPOND-NEEDS F/U Penicillins Allergy Unknown PT UNABLE Verified 09/07/25 19:54 TO RESPOND-NEEDS F/U lisinopril AdvReac Mild nausea Verified 09/07/25 19:54 Family History no significant family his Social History Smoking Status: Current some day smoker tobacco type: cigarettes Physical Exam Const alert, oriented x3 and no apparent distress General Appearance: cooperative HEENT normocephalic and head/scalp atraumatic Eyes PERRL and EOMs intact bilaterally Neck supple and No nodes Resp normal air movement and clear to auscultation bilaterally Cardio regular rate, regular rhythm and no murmurs GI soft to palpation, non-tender and non-distended Extremity General Extremity: edema Skin Skin Narrative: R chest permacath swelling, redness, tenderness Neuro CN's II-XII intact bilaterally Lab / Micro Data Attestation: I reviewed the patient's lab results. 09/08/25 04:54 09/08/25 04:54 Labs: Laboratory Results - last 24 hr 09/07/25 21:15: WBC 11.9 H, RBC 3.24 L, Hgb 8.4 L, Hct 27.4 L, MCV 84.6, MCH 25.9 L, MCHC 30.7 L, RDW Std Deviation 56.9 H, RDW Coeff of Adolfo 18.6 H, Plt Count 241, MPV 10.5, Immature Gran % (Auto) 1.200 H, Neut % (Auto) 72.3 H, Lymph % (Auto) 13.6 L, [place] % (Auto) 7.9, Eos % (Auto) 4.2, Baso % (Auto) 0.8, Absolute Neuts (auto) 8.6 H, Absolute Lymphs (auto) 1.62, Nucleated RBC % 0, Sodium 133, Potassium 6.7 H*, Chloride 97 L, Carbon Dioxide 18.0 L, Anion Gap 17 H, BUN 60 H, Creatinine 8.79 H*, Estim Creat Clear Calc 15.21 L, Est GFR (MDRD) Non-Af 7 L, BUN/Creatinine Ratio 6.8 L, Glucose 348 H, Calcium 8.6 09/07/25 22:51: POC Glucose 287 H 09/08/25 00:39: POC Glucose 295 H 09/08/25 04:54: WBC 9.4, RBC 2.72 L, Hgb 7.0 L, Hct 23.3 L, MCV 85.7, MCH 25.7 L, MCHC 30.0 L, RDW Std Deviation 57.4 H, RDW Coeff of Adolfo 18.6 H, Plt Count 204, MPV 10.8, Immature Gran % (Auto) 1.000 H, Neut % (Auto) 71.8 H, Lymph % (Auto) 14.4 L, [place] % (Auto) 9.4, Eos % (Auto) 2.8, Baso % (Auto) 0.6, Absolute Neuts (auto) 6.8, Absolute Lymphs (auto) 1.36, Nucleated RBC % 0, Sodium 135, Potassium 5.8 H, Chloride 100, Carbon Dioxide 17.1 L, Anion Gap 18 H, BUN 65 H, Creatinine 9.46 H*, Estim Creat Clear Calc 14.07 L, Est GFR (MDRD) Non-Af 6 L, BUN/Creatinine Ratio 6.8 L, Glucose 308 H, Hemoglobin A1c 12.2 H, Calcium 8.6 09/08/25 06:22: POC Glucose 269 H Micro: Microbiology 09/08/25 09:00 Wound exudate - No Site/Description Given Gram Stain - Final Rhythm Strip Rhythm Strip: Sinus Rhythm Rate: 97 Ectopy: None Imaging Radiology Impression Chest X-Ray 09/07/25 21:12 IMPRESSION: NO ACUTE FINDINGS. Reading Location: [address]
--- NOTE | 2025-09-08 14:55 | CASEMGMT ---
CELSO BROWN Assessment: Face to Face with pt for initial transition planning/care coordination assessment. RN KEVIN introduced self and role at [facility], pt voices understanding and consents to assessment. Pt is A&O x4 and answers all questions appropriately at this time. Pt lying in bed in no distress. Care providers, pharmacy, and demographics verified/updated. Strata: 2 Admitting Dx: Acute on chronic renal failure, hyperkalemia PCP: Jair Specialists: Nephrology at [facility] Preferred Pharmacy: [facility] Insurance: [employer] Prescription Benefit: yes LNOK: Sig other - [place] Living Arrangements: Pt lives with S/O, 2 roommates, and g/f son. ADLs: Pt states needing some assistance with IADLs. I with ADLs. Transportation: Pt drives self and denies concerns with transportation. DME: rollator, walker, w/c, shower chair. HHC/SNF: Previously at [facility]. Pt gets Dialysis at [facility] M,W,F. Pt states no concerns with going home at time of dc. Pt states no further concerns/needs. CM to follow. Advised pt to ask CM if any further question/concerns/needs arise, voices understanding. Pt Goal: Home Plan: Home with Dialysis. ID, Nephrology and Surgery consulted - follow for DC needs. Bryn HOUSTON CM
--- NOTE | 2025-09-08 15:09 | EX.PCM.CON.S ---
Assessment & Plan Assessment/Plan (1) Central line infection: QUALIFIERS: Encounter type: initial encounter Qualified Code(s): T80.219A - Unspecified infection due to central venous catheter, initial encounter PLAN: I have been consulted in conjunction with Dr. Dee. She will independently evaluate this patient. Patient is a 50 y/o M I am seeing for an infected right chest tunneled dialysis catheter. Patient has completed dialysis treatment today. He was unfortunately given his daily Eliquis today. Eliquis will need to be held. We will plan to likely remove the dialysis catheter at bedside tomorrow or possibly . Would plan for a line holiday and negative blood cultures prior to replacing the catheter in the left chest. Continue IV antibiotics. Patient has had the opportunity to ask and have questions answered. Patient verbally understands and agrees with the plan. Thank you for allowing us to participate in this patient's care. HPI Consult Data Date of Consult: 09/08/25 HPI Narrative Reason for Consultation: Infected tunneled dialysis catheter HPI Narrative: GURINDER HAHN, is a 50 M who presents with a main complaint of leg weakness and hyperkalemia. Patient states he had a right chest tunneled dialysis catheter placed at [facility] approximately 3-4 months ago. He notes going to dialysis on , and at [facility]. It was reported the patient has not been at dialysis in 1 week. He states he noted soreness at his catheter site last night otherwise he has had no issues. He notes he has an appointment scheduled with vascular surgery on 10/06 to discuss fistula creation. Patient denies having a dialysis catheter previously. 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 He was in ICU for 1 month at [facility]. Patient is currently on Eliquis for A Fib. He notes not covering the tunneled catheter when he showers. Blood cultures pending. Microbiology pending from dialysis catheter culture. Creatinine 9.46 today. Hgb 7.0. [facility] Medical History Anemia, unspecified Acute kidney failure, unspecified Obstructive and reflux uropathy, unspecified Polyneuropathy, unspecified Jean gangrene Debility Type 2 diabetes mellitus Decubitus ulcer of right buttock, stage 4 Home Medications ?Medication ?Instructions ?Recorded ?Last Taken ?Type apixaban 5 mg tablet (Eliquis) 5 mg PO BID 06/05/24 09/07/25 History bumetanide 1 mg tablet 1 mg PO BID 06/05/24 Unknown History gabapentin 300 mg capsule 300 mg PO DAILY 06/05/24 Unknown History glimepiride 4 mg tablet 8 mg PO DAILY 06/05/24 Unknown History insulin glargine 100 unit/mL (3 30 unit subcut QHS 06/05/24 Unknown History mL) subcutaneous pen (Lantus Solostar U-100 Insulin) insulin lispro 100 unit/mL 1 sliding scale dose subcut TID DM 06/05/24 Unknown History subcutaneous pen (Humalog KwikPen (U-100) Insulin) metoprolol succinate 100 mg 100 mg PO BID 06/05/24 Unknown History tablet,extended release 24 hr omeprazole 40 mg capsule,delayed 40 mg PO BID 06/05/24 Unknown History release rosuvastatin 10 mg tablet 10 mg PO DAILY 06/05/24 Unknown History acetaminophen 325 mg tablet 650 mg PO Q8H PRN pain 06/18/24 Unknown History sodium hypochlorite 0.25 % 1 applic topical BID 06/18/24 Unknown History solution (Dakin's Solution) Allergy/AdvReac Type Severity Reaction Status Date / Time ampicillin Allergy Unknown PT UNABLE Verified 09/07/25 19:54 TO RESPOND-NEEDS F/U Penicillins Allergy Unknown PT UNABLE Verified 09/07/25 19:54 TO RESPOND-NEEDS F/U lisinopril AdvReac Mild nausea Verified 09/07/25 19:54 Family History no significant family his Social History Smoking Status: Current some day smoker tobacco type: cigarettes ROS Constitutional Constitutional: Reports systems reviewed and no addt'l complaints, except as documented Eyes Eyes: Reports systems reviewed and no addt'l complaints, except as documented ENT HEENT: Reports systems reviewed and no addt'l complaints, except as documented Cardiovascular Cardiovascular: Reports systems reviewed and no addt'l complaints, except as documented Respiratory/Chest Respiratory/Chest: Reports systems reviewed and no addt'l complaints, except as documented Gastrointestinal Gastrointestinal: Reports systems reviewed and no addt'l complaints, except as documented Genitourinary Genitourinary: Reports systems reviewed and no addt'l complaints, except as documented Musculoskeletal Musculoskeletal: Reports systems reviewed and no addt'l complaints, except as documented Integumentary Integumentary: Reports systems reviewed and no addt'l complaints, except as documented Neurologic Neurologic: Reports systems reviewed and no addt'l complaints, except as documented Psychiatric Psychiatric: Reports systems reviewed and no addt'l complaints, except as documented Endocrine Endocrinology: Reports systems reviewed and no addt'l complaints, except as documented Hematologic/Lymphatic Hematologic/Lymphatic: Reports systems reviewed and no addt'l complaints, except as documented Allergic/Immunologic Allergic/Immunologic: Reports systems reviewed and no addt'l complaints, except as documented Physical Exam Const alert, oriented x3 and no apparent distress HEENT normocephalic and head/scalp atraumatic Eyes PERRL Neck full ROM Chest Chest Narrative: Right chest tunneled dialysis catheter- swelling noted superior to the chest catheter, tender to palpation. No active drainage noted at the time of exam. Resp normal respiratory effort and clear to auscultation bilaterally Cardio regular rate and regular rhythm GI normal to inspection, nondistended, normoactive bowel sounds no CVA tenderness Back/Spine no CVA tenderness Extremity normal to inspection Skin no rashes or lesions noted Neuro no focal motor deficits and no sensory deficits noted Psych mental status grossly normal and thought process normal Lab / Micro Data 09/08/25 04:54 09/08/25 04:54 Labs: Laboratory Results - last 24 hr 09/07/25 21:15: WBC 11.9 H, RBC 3.24 L, Hgb 8.4 L, Hct 27.4 L, MCV 84.6, MCH 25.9 L, MCHC 30.7 L, RDW Std Deviation 56.9 H, RDW Coeff of Adolfo 18.6 H, Plt Count 241, MPV 10.5, Immature Gran % (Auto) 1.200 H, Neut % (Auto) 72.3 H, Lymph % (Auto) 13.6 L, [place] % (Auto) 7.9, Eos % (Auto) 4.2, Baso % (Auto) 0.8, Absolute Neuts (auto) 8.6 H, Absolute Lymphs (auto) 1.62, Nucleated RBC % 0, Sodium 133, Potassium 6.7 H*, Chloride 97 L, Carbon Dioxide 18.0 L, Anion Gap 17 H, BUN 60 H, Creatinine 8.79 H*, Estim Creat Clear Calc 15.21 L, Est GFR (MDRD) Non-Af 7 L, BUN/Creatinine Ratio 6.8 L, Glucose 348 H, Calcium 8.6 09/07/25 22:51: POC Glucose 287 H 09/08/25 00:39: POC Glucose 295 H 09/08/25 04:54: WBC 9.4, RBC 2.72 L, Hgb 7.0 L, Hct 23.3 L, MCV 85.7, MCH 25.7 L, MCHC 30.0 L, RDW Std Deviation 57.4 H, RDW Coeff of Adolfo 18.6 H, Plt Count 204, MPV 10.8, Immature Gran % (Auto) 1.000 H, Neut % (Auto) 71.8 H, Lymph % (Auto) 14.4 L, [place] % (Auto) 9.4, Eos % (Auto) 2.8, Baso % (Auto) 0.6, Absolute Neuts (auto) 6.8, Absolute Lymphs (auto) 1.36, Nucleated RBC % 0, Sodium 135, Potassium 5.8 H, Chloride 100, Carbon Dioxide 17.1 L, Anion Gap 18 H, BUN 65 H, Creatinine 9.46 H*, Estim Creat Clear Calc 14.07 L, Est GFR (MDRD) Non-Af 6 L, BUN/Creatinine Ratio 6.8 L, Glucose 308 H, Hemoglobin A1c 12.2 H, Calcium 8.6 09/08/25 06:22: POC Glucose 269 H Micro: Microbiology 09/08/25 09:00 Wound exudate - No Site/Description Given Gram Stain - Final Rhythm Strip Rhythm Strip: Sinus Rhythm Rate: 97 Ectopy: None Imaging Radiology Impression Chest X-Ray 09/07/25 21:12 IMPRESSION: NO ACUTE FINDINGS. Reading Location: [address]
[2025-09-08] MEDS: BACITRACIN 15 GM Tube 1 APPLIC TOPICAL (15:47)
[2025-09-08] MEDS: Vancomycin HCl 2,000 MG in 0.9% Normal Saline (500mL Bag) 500 ML 250 MG IV (15:47)
--- NOTE | 2025-09-08 17:26 | PCM.CONS.R ---
Assessment & Plan Assessment/Plan (1) End stage renal disease on dialysis: PLAN: ESRD, on hemodialysis Sunday, Sunday, Sunday. Apparently missed dialysis for about a week. Hyperkalemia in the setting of renal failure, missed dialysis Dialysis today. Initially there was some erythema noted around exit site. While dialysis staff was attempting to access the catheter, there was some purulent discharge noted. He did have mild elevation in WBC count. Local and blood cultures have been sent in dialysis. At a minimum he likely has exit site infection with or without bacteremia. Discussed with hospitalist. Will place ID consult for further evaluation. HPI Consult Data Date of Consult: 09/08/25 HPI Narrative Reason for Consultation: ESRD HPI Narrative: GURINDER HAHN, is a 50 M who presents To the hospital with generalized weakness, swelling. Apparently did not have dialysis for a week. History of ESRD, on dialysis Sunday, Sunday, Sunday. [place] [facility] [place] [facility]. Primary assembler crimper is Dr. Gutierres. Last dialysis apparently is about a week ago. Presented with above complaints, found to have severe hyperkalemia which was medically treated. Potassium is better this morning, still on the higher side. Looks comfortable otherwise. Has a right IJ tunneled dialysis catheter. Apparently he takes a shower with the catheter even though instructions usually are against this. [facility] Medical History Anemia, unspecified Acute kidney failure, unspecified Obstructive and reflux uropathy, unspecified Polyneuropathy, unspecified Jean gangrene Debility Type 2 diabetes mellitus Decubitus ulcer of right buttock, stage 4 Home Medications ?Medication ?Instructions ?Recorded ?Last Taken ?Type apixaban 5 mg tablet (Eliquis) 5 mg PO BID blood thinner 06/05/24 09/07/25 History gabapentin 300 mg capsule 300 mg PO QHS leg pain 06/05/24 Unknown History glimepiride 4 mg tablet 8 mg PO DAILY diabetes 06/05/24 Unknown History insulin glargine 100 unit/mL (3 30 unit subcut QHS diabetes 06/05/24 Unknown History mL) subcutaneous pen (Lantus Solostar U-100 Insulin) insulin lispro 100 unit/mL 1 sliding scale dose subcut TID DM 06/05/24 Unknown History subcutaneous pen (Humalog KwikPen (U-100) Insulin) omeprazole 40 mg capsule,delayed 40 mg PO BID gerd 06/05/24 Unknown History release rosuvastatin 10 mg tablet 10 mg PO DAILY cholesterol 06/05/24 Unknown History acetaminophen 325 mg tablet 650 mg PO Q8H PRN pain 06/18/24 Unknown History calcium acetate(phosphat bind) 667 1,334 mg PO TID dialysis patient 09/08/25 Unknown History mg capsule hydralazine 50 mg tablet 50 mg PO TID blood pressure 09/08/25 Unknown History melatonin 3 mg tablet 3 mg PO QHS sleep 09/08/25 Unknown History metoprolol succinate 25 mg 25 mg PO DAILY heart 09/08/25 Unknown History tablet,extended release 24 hr Allergy/AdvReac Type Severity Reaction Status Date / Time ampicillin Allergy Unknown PT UNABLE Verified 09/07/25 19:54 TO RESPOND-NEEDS F/U Penicillins Allergy Unknown PT UNABLE Verified 09/07/25 19:54 TO RESPOND-NEEDS F/U lisinopril AdvReac Mild nausea Verified 09/07/25 19:54 Family History no significant family his Social History Smoking Status: Current some day smoker tobacco type: cigarettes ROS ROS Narrative negative except above Physical Exam Narrative Alert awake oriented x 3 no obvious distress no pallor no icterus no JVD s1s2 no murmurs lungs clear Lab / Micro Data 09/08/25 04:54 09/08/25 04:54 Labs: Laboratory Results - last 24 hr 09/07/25 21:15: WBC 11.9 H, RBC 3.24 L, Hgb 8.4 L, Hct 27.4 L, MCV 84.6, MCH 25.9 L, MCHC 30.7 L, RDW Std Deviation 56.9 H, RDW Coeff of Adolfo 18.6 H, Plt Count 241, MPV 10.5, Immature Gran % (Auto) 1.200 H, Neut % (Auto) 72.3 H, Lymph % (Auto) 13.6 L, [place] % (Auto) 7.9, Eos % (Auto) 4.2, Baso % (Auto) 0.8, Absolute Neuts (auto) 8.6 H, Absolute Lymphs (auto) 1.62, Nucleated RBC % 0, Sodium 133, Potassium 6.7 H*, Chloride 97 L, Carbon Dioxide 18.0 L, Anion Gap 17 H, BUN 60 H, Creatinine 8.79 H*, Estim Creat Clear Calc 15.21 L, Est GFR (MDRD) Non-Af 7 L, BUN/Creatinine Ratio 6.8 L, Glucose 348 H, Calcium 8.6 09/07/25 22:51: POC Glucose 287 H 09/08/25 00:39: POC Glucose 295 H 09/08/25 04:54: WBC 9.4, RBC 2.72 L, Hgb 7.0 L, Hct 23.3 L, MCV 85.7, MCH 25.7 L, MCHC 30.0 L, RDW Std Deviation 57.4 H, RDW Coeff of Adolfo 18.6 H, Plt Count 204, MPV 10.8, Immature Gran % (Auto) 1.000 H, Neut % (Auto) 71.8 H, Lymph % (Auto) 14.4 L, [place] % (Auto) 9.4, Eos % (Auto) 2.8, Baso % (Auto) 0.6, Absolute Neuts (auto) 6.8, Absolute Lymphs (auto) 1.36, Nucleated RBC % 0, Sodium 135, Potassium 5.8 H, Chloride 100, Carbon Dioxide 17.1 L, Anion Gap 18 H, BUN 65 H, Creatinine 9.46 H*, Estim Creat Clear Calc 14.07 L, Est GFR (MDRD) Non-Af 6 L, BUN/Creatinine Ratio 6.8 L, Glucose 308 H, Hemoglobin A1c 12.2 H, Calcium 8.6 09/08/25 06:22: POC Glucose 269 H 09/08/25 14:04: POC Glucose 286 H 09/08/25 17:04: POC Glucose 290 H Micro: Microbiology 09/08/25 09:00 Wound exudate - No Site/Description Given Gram Stain - Final Rhythm Strip Rhythm Strip: Sinus Rhythm Rate: 97 Ectopy: None Imaging Radiology Impression Chest X-Ray 09/07/25 21:12 IMPRESSION: NO ACUTE FINDINGS. Reading Location: [address]
[2025-09-08] MEDS: Cefepime HCl 1 GM in 0.9% Normal Saline (50mL MB+) 50 ML IV (18:37)
[2025-09-08] MEDS: MELATONIN 3 MG TABLET PO (21:52)
[2025-09-08] MEDS: Insulin Glargine-YFGN 100 UNIT/ML Pen 30 UNIT SC (21:53)
[2025-09-08] MEDS: 0.9% Saline Lock 10 ML Syringe IV (21:54)
[2025-09-09] VITALS (25 sets, daily range): BP systolic 115–168; BP diastolic 68–97; PULSE 80–94; RESP 14–18; TEMP 36.1–37.2; O2SAT 95–100; BMI 37.0; BMI 35.7
[2025-09-09 05:59] LABS: Hematocrit 24.4 % (40-54); Hemoglobin 7.3 g/dL (13.0-16.5); Immature Granulocytes Count 0.120 X10^3/uL (0.0-0.0); Mean Corp Hgb Conc 29.9 g/dL (32-36); Mean Corpuscular Volume 86.2 fL (80-94); Mean Platelet Vol. 10.6 fl (6.2-12.0); NRBC Flagged by Analyzer 0 % (0-5); Platelet Count 225 K/mm3 (150-450); RBC Distribution Width CV 18.5 % (11.6-14.6); RBC Distribution Width SD 58.2 fl (35.1-43.9); Red Blood Count 2.83 M/mm3 (4.6-6.2); White Blood Count 9.5 K/mm3 (4.4-11.0)
[2025-09-09 06:29] LABS: Anion Gap 14 (5-15); BUN 47 mg/dL (4-19); BUN/Creat Ratio 6.6 RATIO (10-20); Calcium,Total 8.9 mg/dL (7.6-11.0); Carbon Dioxide 21.3 mmol/L (21.0-32.0); Chloride 102 mmol/L (98-108); Estimated Creatinine Clearance 18.18 ml/min (50-250); Glucose 110 mg/dL (70-99); Potassium 5.2 mmol/L (3.3-5.1)
[2025-09-09] MEDS: PureFlow B 2K Dialysis Soln 1 BAG 6 BAG PF (08:28)
[2025-09-09] MEDS: 0.9% Normal Saline 1,000 ML IV.SOLN. 1000 ML OPERA.SITE (08:28)
--- NOTE | 2025-09-09 09:47 | NUR.TO.PHY ---
Dialysis Coordinator received report from outpatient HD clinic, [facility] this am. Nikita engineering intern, Magalys, gave report. Patient has long hx of showering with current cvc, pt has been educated multiple times at [facility]. Pt has hx of non-compliance with attending outpatient appointments. Patient has hx of non-compliance with attending vein mapping appts for fistula placement, pt has not attended any of these scheduled appts. Pt was recently interested in Peritoneal Dialysis & multiple appts were set up. However, patient called off outpatient HD appts b/c he had Peritoneal appts scheduled, however, patient did not actually attend those appts or his HD appts.
--- NOTE | 2025-09-09 09:49 | PCM.RX.CS ---
Consult Antibiotic Management Pharmacy has been consulted to manage selected antibiotic: Vancomycin Type of Intervention Type of Consult: Follow-up Prior Doses of Antibiotics Prior Doses of Antibiotics Received/Current Regimen: received vanc 2000mg IV x1 on 09/08/25 at 15:47 Labs Labs: Sodium 137 mmol/L (133-145) 09/09/25 05:01 Potassium 5.2 mmol/L (3.3-5.1) H 09/09/25 05:01 Chloride 102 mmol/L (98-108) 09/09/25 05:01 Carbon Dioxide 21.3 mmol/L (21.0-32.0) 09/09/25 05:01 Anion Gap 14 (5-15) 09/09/25 05:01 BUN 47 mg/dL (4-19) H 09/09/25 05:01 Creatinine 7.15 mg/dL (0.70-1.20) H 09/09/25 05:01 Est GFR (MDRD) Non-Af 9 (>60) L 09/09/25 05:01 BUN/Creatinine Ratio 6.6 RATIO (10-20) L 09/09/25 05:01 Glucose 110 mg/dL (70-99) H 09/09/25 05:01 Microbiology Microbiology: Microbiology 09/08/25 09:00 Wound exudate - No Site/Description Given Gram Stain - Final 09/08/25 09:00 Wound exudate - No Site/Description Given Wound Culture - Preliminary Presumptive C albicans Alpha hemolytic organism Dosing Weight Weight used for dosin kg Estimated Creatinine Clearance Estimated Creatinine Clearance: on HD Goal Trough Goal Trough: 15-20 mcg/mL Pharmacy Plan for Drug Dosing Pharmacy Plan for Drug Dosing: Per [facility] dosing protocol for dosing vanc in dialysis patients, will schedule the 2nd dose of vanc 1000mg (based on the pt's weight) to be given today after HD. It is possible the patient may get HD again tomorrow per the dialysis nurse so will order a vanc random level for tomorrow morning before HD would be started. That level will determine if a dose should be given tomorrow after HD if, in fact, HD is ordered again tomorrow. Pharmacy Service will continue to monitor and adjust dosing as required. Follow-Up Labs Follow-Up Labs: Trough: Vancomycin (random) Date/Time Labs Ordered Labs to be done on [date and time ordered]: 09/10/25 0600 random pre-HD
--- NOTE | 2025-09-09 10:11 | CASEMGMT ---
CELSO BROWN NOTE: Sheri @ [facility] aware pt has been admitted to [facility]. Byron CHÁVEZ RN CM
[2025-09-09] MEDS: 0.9% Saline Lock 10 ML Syringe IV ×2 (12:11→22:12)
--- NOTE | 2025-09-09 12:48 | PN.RENAL_ITS ---
Subjective Subjective no new events Objective Data Objective Data Vital Signs: Vital Signs Temp Pulse Resp BP Pulse Ox O2 Del Method O2 Flow Rate 98.0 F 90 16 148/85 H 100 Room Air 2 09/09/25 07:45 09/09/25 12:00 09/09/25 12:00 09/09/25 12:00 09/09/25 12:00 09/09/25 12:00 09/09/25 10:00 Oxygen Flow Rate (L/min) 2 Oxygen Delivery Method Room Air Weight: 131 kg Body Mass Index (BMI) 37.0 Intake & Output: Intake and Output for Last 24 Hours 09/07/25 09/08/25 09/09/25 23:59 23:59 23:59 Intake Total 2059 / 2059 Output Total 7790 / 7790 350 / 350 Balance -5730 / -5730 -350 / -350 Lab / Micro Data 09/09/25 05:01 09/09/25 05:01 Labs: Laboratory Results - last 24 hr 09/08/25 14:04: POC Glucose 286 H 09/08/25 17:04: POC Glucose 290 H 09/08/25 21:46: POC Glucose 214 H 09/09/25 05:01: WBC 9.5, RBC 2.83 L, Hgb 7.3 L, Hct 24.4 L, MCV 86.2, MCH 25.8 L , MCHC 29.9 L, RDW Std Deviation 58.2 H, RDW Coeff of Adolfo 18.5 H, Plt Count 225, MPV 10.6, Immature Gran % (Auto) 1.300 H, Neut % (Auto) 60.6, Lymph % (Auto) 21.1, [place] % (Auto) 12.4 H, Eos % (Auto) 3.6, Baso % (Auto) 1.0, Absolute Neuts (auto) 5.8, Absolute Lymphs (auto) 2.00, Nucleated RBC % 0, Sodium 137, P otassium 5.2 H, Chloride 102, Carbon Dioxide 21.3, Anion Gap 14, BUN 47 H, C reatinine 7.15 H, Estim Creat Clear Calc 18.18 L, Est GFR (MDRD) Non-Af 9 L, B UN/Creatinine Ratio 6.6 L, Glucose 110 H, Calcium 8.9 09/09/25 06:44: POC Glucose 83 09/09/25 11:32: POC Glucose 149 H Micro: Microbiology 09/08/25 09:00 Wound exudate - No Site/Description Given Gram Stain - Final 09/08/25 09:00 Wound exudate - No Site/Description Given Wound Culture - Preliminary Presumptive C albicans Alpha hemolytic organism Rhythm Strip Rhythm Strip: Sinus Rhythm Rate: 97 Ectopy: None Physical Exam Narrative Alert awake oriented x 3 no obvious distress no pallor no icterus no JVD s1s2 no murmurs lungs clear Assessment & Plan Assessment/Plan (1) End stage renal disease on dialysis: PLAN: ESRD, on hemodialysis Sunday, Sunday, Sunday. Apparently missed dialysis for about a week. Hyperkalemia in the setting of renal failure, missed dialysis seen on HD today. reviewed ID and surgery notes. will need to have TDC removed. plan is to remove HD tomorrow after dialysis and give line holiday over the weekend
[2025-09-09] MEDS: Cefepime HCl 0.5 GM in 0.9% Normal Saline (50mL Bag) 50 ML IV (13:01)
--- NOTE | 2025-09-09 13:01 | PCM.PN.SRG ---
Subjective Subjective Patient got dialysis yesterday and today also plan to get again tomorrow before the line holiday. Objective Data Objective Data Vital Signs: Vital Signs Temp Pulse Resp BP Pulse Ox O2 Del Method O2 Flow Rate 98.0 F 90 16 148/85 H 100 Room Air 2 09/09/25 07:45 09/09/25 12:00 09/09/25 12:00 09/09/25 12:00 09/09/25 12:00 09/09/25 12:00 09/09/25 10:00 Oxygen Flow Rate (L/min) 2 Oxygen Delivery Method Room Air Weight: 288 lb 12.889 oz Body Mass Index (BMI) 37.0 Intake & Output: Intake and Output for Last 24 Hours 09/07/25 09/08/25 09/09/25 23:59 23:59 23:59 Intake Total 2059 / 2059 Output Total 7790 / 7790 750 / 750 Balance -5730 / -5730 -750 / -750 Lab / Micro Data 09/09/25 05:01 09/09/25 05:01 Labs: Laboratory Results - last 24 hr 09/08/25 14:04: POC Glucose 286 H 09/08/25 17:04: POC Glucose 290 H 09/08/25 21:46: POC Glucose 214 H 09/09/25 05:01: WBC 9.5, RBC 2.83 L, Hgb 7.3 L, Hct 24.4 L, MCV 86.2, MCH 25.8 L, MCHC 29.9 L, RDW Std Deviation 58.2 H, RDW Coeff of Adolfo 18.5 H, Plt Count 225, MPV 10.6, Immature Gran % (Auto) 1.300 H, Neut % (Auto) 60.6, Lymph % (Auto) 21.1, [place] % (Auto) 12.4 H, Eos % (Auto) 3.6, Baso % (Auto) 1.0, Absolute Neuts (auto) 5.8, Absolute Lymphs (auto) 2.00, Nucleated RBC % 0, Sodium 137, Potassium 5.2 H, Chloride 102, Carbon Dioxide 21.3, Anion Gap 14, BUN 47 H, Creatinine 7.15 H, Estim Creat Clear Calc 18.18 L, Est GFR (MDRD) Non-Af 9 L, BUN/Creatinine Ratio 6.6 L, Glucose 110 H, Calcium 8.9 09/09/25 06:44: POC Glucose 83 09/09/25 11:32: POC Glucose 149 H Micro: Microbiology 09/08/25 09:00 Wound exudate - No Site/Description Given Gram Stain - Final 09/08/25 09:00 Wound exudate - No Site/Description Given Wound Culture - Preliminary Presumptive C albicans Alpha hemolytic organism Rhythm Strip Rhythm Strip: Sinus Rhythm Rate: 97 Ectopy: None Physical Exam Narrative Right chest exit site of the catheter has some erythema and some purulent drainage patient states the pain has resolved. Const oriented x3 and no apparent distress Resp normal respiratory effort Assessment & Plan Assessment/Plan (1) Central line infection: QUALIFIERS: Encounter type: initial encounter Qualified Code(s): T80.219A - Unspecified infection due to central venous catheter, initial encounter PLAN: Will plan to remove the tunneled dialysis line tomorrow after dialysis to be able to give the patient line holiday as he did not have dialysis for a week and we are unable to do dialysis over the /Sunday. Will plan to discuss on my partners for a tunnel dialysis line placement on Sunday for dialysis. Discussed with patient and no further questions time. Sarika Dee M.D. Pager: [phone] [facility] [address] [place] [address], [address] [place] [address] Office: [phone] Charges/Coding Visit Charges Inpatient E&M: 88670 Subs Hosp L2
[2025-09-09] MEDS: Metoprolol(XL)Succ 50 MG Tablet PO (13:08)
[2025-09-09] MEDS: BACITRACIN 15 GM Tube 1 APPLIC TOPICAL (13:09)
[2025-09-09] MEDS: Fluconazole IVPB 400 MG/200 ML BAG 100 MG IV (14:14)
--- NOTE | 2025-09-09 15:50 | PN.HOSP_ITS ---
Reason for Visit Chief Complaint: Generalized weakness, missed dialysis Objective Data Objective Data Vital Signs: Vital Signs Temp Pulse Resp BP Pulse Ox O2 Del Method O2 Flow Rate 99 F 91 18 164/87 H 95 Nasal Cannula 2 09/09/25 15:41 09/09/25 15:41 09/09/25 15:41 09/09/25 15:41 09/09/25 15:41 09/09/25 15:44 09/09/25 15:44 Oxygen Flow Rate (L/min) 2 Oxygen Delivery Method Nasal Cannula Weight: 278 lb 10.629 oz Body Mass Index (BMI) 35.7 Intake & Output: Intake and Output for Last 24 Hours 09/07/25 09/08/25 09/09/25 23:59 23:59 23:59 Intake Total 2059 / 2059 55 55 Output Total 7790 / 7790 5340 / 5340 Balance -5730 / -5730 -5285 / -5285 Lab / Micro Data 09/09/25 05:01 09/09/25 05:01 Labs: Laboratory Results - last 24 hr 09/08/25 14:04: POC Glucose 286 H 09/08/25 17:04: POC Glucose 290 H 09/08/25 21:46: POC Glucose 214 H 09/09/25 05:01: WBC 9.5, RBC 2.83 L, Hgb 7.3 L, Hct 24.4 L, MCV 86.2, MCH 25.8 L , MCHC 29.9 L, RDW Std Deviation 58.2 H, RDW Coeff of Adolfo 18.5 H, Plt Count 225, MPV 10.6, Immature Gran % (Auto) 1.300 H, Neut % (Auto) 60.6, Lymph % (Auto) 21.1, Granite % (Auto) 12.4 H, Eos % (Auto) 3.6, Baso % (Auto) 1.0, Absolute Neuts (auto) 5.8, Absolute Lymphs (auto) 2.00, Nucleated RBC % 0, Sodium 137, P otassium 5.2 H, Chloride 102, Carbon Dioxide 21.3, Anion Gap 14, BUN 47 H, C reatinine 7.15 H, Estim Creat Clear Calc 18.18 L, Est GFR (MDRD) Non-Af 9 L, B UN/Creatinine Ratio 6.6 L, Glucose 110 H, Calcium 8.9 09/09/25 06:44: POC Glucose 83 09/09/25 11:32: POC Glucose 149 H Micro: Microbiology 09/08/25 09:00 Wound exudate - No Site/Description Given Gram Stain - Final 09/08/25 09:00 Wound exudate - No Site/Description Given Wound Culture - Preliminary Presumptive C albicans Alpha hemolytic organism Rhythm Strip Rhythm Strip: Sinus Rhythm Rate: 97 Ectopy: None Physical Exam Narrative Seen and examined. No acute issues. Heart rate and blood pressure controlled. Patient denies any fever or chills. Physical exam General: Alert, Oriented x3, Cooperative HEENT: Atraumatic, PERRLA, EOMI, Normocephalic. Oral: No Gingival or Mucosal Lesions/ Ulcerations Neck: Supple, No JVD, Negative Carotid Bruits Chest wall/Lungs: Right-sided chest wall tunneled Alysis catheter air entry diminished in bilateral lung bases. No crepitation/rhonchi Cardiovascular: Regular rate and rhythm, Normal S1,S2, No M/G/R Abdomen: Bowel Sounds Present, Soft, Non Tender, Non-Distended : No dysuria. Still makes urine and about 300 mL/day. No renal angle tenderness. No suprapubic tenderness. Extremities: No edema, Capillary Refill Less than 3 Seconds Skin: Mild expression of pus at the exit point of right dialysis catheter. Tenderness and mild redness present. Musculoskeletal: No Tenderness to Palpation of Joints or Extremities Neurological: Cranial nerves II-XII grossly intact, DTR 2+/4. No acute focal neurological deficit. Psych/Mental Status: Normal Affect, Appropriate. Assessment & Plan Assessment/Plan (1) Diabetes: (2) A-fib: (3) Chronic anemia: (4) End stage renal disease on dialysis: (5) Acute hyperkalemia: (6) Hypertension: PLAN: Plan 50-year-old male was admitted after he missed dialysis, last dialysis was more than a week ago on Sunday. Feeling generalized weakness. No fever. Has been on dialysis for last 1 week. Patient is being admitted to PCU 1. Tunneled dialysis catheter infection/central line/exit site infection: Blood culture was ordered. Empirically started on IV vancomycin and Levaquin. ID was consulted and changed antibiotic to vancomycin and cefepime. General surgery Dr. Johnson was consulted for removal of tunneled dialysis catheter. Monitor blood culture. 09/09: After discussion with mice raiser, surgery, decision was made to dialyze today and tomorrow and then dialysis catheter removal tomorrow. Then dialysis catheter line holiday on the weekend and anticipated new dialysis catheter on Sunday. Prelim wound culture growing alphahemolytic strep and presumptive Maribell albicans 2. End-stage kidney disease on Sunday but missed about 10 days of dialysis: Mild hyperkalemia, K5.8 BUN/creatinine 65/9.46. 17, anion gap 18. Patient was dialyzed today. Radiologic Technologist Chief consulted and discussed with him and he was of the same opinion with general surgery to remove the catheter. 3. Generalized weakness: PT and OT ordered 2.?Paroxysmal atrial fibrillation twelve:-lead EKG shows sinus rhythm 97 bpm. Rate is controlled. Anticoagulation hold prior to dialysis removal. Patient was on Eliquis. 3. Acute hyperkalemia?patient received insulin and glucose, calcium gluconate and albuterol inhalation treatments in the emergency room. EKG does not show signs of hyperkalemia. Patient was dialyzed in the morning 09/09: Potassium is 5.2 improved. 4. Hypertension?: Blood pressure was high 158/86-1 60/85. On hydralazine 50 mg 3 times daily. Noncompliant to medication. 5. Diabetes mellitus type 2: Glucose is high. Accu-Chek before meals and at bedtime with Humalog sliding scale coverage and hypoglycemia protocol. On glimepiride 8 mg daily 6. Severe anemia due to end-stage renal disease: Admitting H&H 8.4/27.4% dropped to 7.0/23.3%. No acute bleeding. DVT prophylaxis?bilateral SCDs CODE STATUS?full verified Microbiology Past 72 Hours 09/08/25 09:00 Wound exudate - No Site/Description Given Gram Stain - Final 09/08/25 09:00 Wound exudate - No Site/Description Given Wound Culture - Preliminary Presumptive C albicans Alpha hemolytic organism Laboratory Results 09/08/25 14:04: POC Glucose 286 H 09/08/25 17:04: POC Glucose 290 H 09/08/25 21:46: POC Glucose 214 H 09/09/25 05:01: WBC 9.5, RBC 2.83 L, Hgb 7.3 L, Hct 24.4 L, MCV 86.2, MCH 25.8 L , MCHC 29.9 L, RDW Std Deviation 58.2 H, RDW Coeff of Adolfo 18.5 H, Plt Count 225, MPV 10.6, Immature Gran % (Auto) 1.300 H, Neut % (Auto) 60.6, Lymph % (Auto) 21.1, Granite % (Auto) 12.4 H, Eos % (Auto) 3.6, Baso % (Auto) 1.0, Absolute Neuts (auto) 5.8, Absolute Lymphs (auto) 2.00, Nucleated RBC % 0, Sodium 137, P otassium 5.2 H, Chloride 102, Carbon Dioxide 21.3, Anion Gap 14, BUN 47 H, C reatinine 7.15 H, Estim Creat Clear Calc 18.18 L, Est GFR (MDRD) Non-Af 9 L, B UN/Creatinine Ratio 6.6 L, Glucose 110 H, Calcium 8.9 09/09/25 06:44: POC Glucose 83 09/09/25 11:32: POC Glucose 149 H Charges/Coding Visit Charges Inpatient E&M: 56982 Subs Hosp L2
--- NOTE | 2025-09-09 16:30 | PCM.PN.ID ---
Physical Exam Narrative Feeling ok, no fever, no n/v/d Const alert and no apparent distress General Appearance: cooperative Resp normal air movement and clear to auscultation bilaterally Cardio regular rate and regular rhythm GI soft to palpation, non-tender and non-distended Skin Skin Narrative: R permacath swelling ID ID: Route of nutrition/ use of supplements: [] Nutritional Intake: [] IV Site: [] Young Catheter: [] Assessment & Plan Assessment/Plan (1) End stage renal disease on dialysis: (2) Central line infection: QUALIFIERS: Encounter type: initial encounter Qualified Code(s): T80.219A - Unspecified infection due to central venous catheter, initial encounter PLAN: Bcx neg so far, wound showing GNR and yeast. Cont vanc/cefepime for now. Will add fluconazole. Will follow
[2025-09-09] MEDS: Vancomycin HCl 1,000 MG in 0.9% Normal Saline (250mL Bag) 250 ML 250 MG IV (18:36)
[2025-09-09] MEDS: Insulin Glargine-YFGN 100 UNIT/ML Pen 30 UNIT SC (22:12)
[2025-09-09] MEDS: MELATONIN 3 MG TABLET PO (22:12)
[2025-09-10] VITALS (15 sets, daily range): BP systolic 127–171; BP diastolic 68–100; PULSE 67–94; RESP 12–16; TEMP 36.5–36.7; O2SAT 97–100; BMI 35.7; BMI 35.8
[2025-09-10 06:37] LABS: Hematocrit 26.6 % (40-54); Hemoglobin 7.9 g/dL (13.0-16.5); Immature Granulocytes Count 0.190 X10^3/uL (0.0-0.0); Mean Corp Hgb Conc 29.7 g/dL (32-36); Mean Corpuscular Volume 86.6 fL (80-94); Mean Platelet Vol. 10.3 fl (6.2-12.0); NRBC Flagged by Analyzer 0 % (0-5); Platelet Count 233 K/mm3 (150-450); RBC Distribution Width CV 18.4 % (11.6-14.6); RBC Distribution Width SD 58.7 fl (35.1-43.9); Red Blood Count 3.07 M/mm3 (4.6-6.2); White Blood Count 9.2 K/mm3 (4.4-11.0)
[2025-09-10 07:00] LABS: Anion Gap 12 (5-15); BUN 38 mg/dL (4-19); BUN/Creat Ratio 6.3 RATIO (10-20); Calcium,Total 9.1 mg/dL (7.6-11.0); Carbon Dioxide 21.5 mmol/L (21.0-32.0); Chloride 104 mmol/L (98-108); Estimated Creatinine Clearance 20.96 ml/min (50-250); Glucose 210 mg/dL (70-99); Potassium 5.0 mmol/L (3.3-5.1); Vancomycin, Random Level 22.7 ug/mL (0.0-15.0)
[2025-09-10] MEDS: PureFlow B 2K Dialysis Soln 1 BAG 6 BAG PF (09:06)
[2025-09-10] MEDS: 0.9% Normal Saline 1,000 ML IV.SOLN. 1000 ML OPERA.SITE (09:06)
[2025-09-10] MEDS: 0.9% Saline Lock 10 ML Syringe IV (09:12)
--- NOTE | 2025-09-10 10:02 | PCM.PN.ID ---
Physical Exam Narrative Sleeping this AM, on dialysis, no fever Const no apparent distress Resp normal air movement and clear to auscultation bilaterally Cardio regular rate and regular rhythm GI soft to palpation, non-tender and non-distended Skin Skin Narrative: no new rash ID ID: Route of nutrition/ use of supplements: [] Nutritional Intake: [] IV Site: [] Young Catheter: [] Assessment & Plan Assessment/Plan (1) End stage renal disease on dialysis: (2) Central line infection: QUALIFIERS: Encounter type: initial encounter Qualified Code(s): T80.219A - Unspecified infection due to central venous catheter, initial encounter PLAN: Bcx neg so far, wound showing strep-like and yeast. Cont vanc/cefepime/fluconazole. Line removal planned. Will follow
--- NOTE | 2025-09-10 10:31 | PCM.RX.CS ---
Consult Antibiotic Management Pharmacy has been consulted to manage selected antibiotic: Vancomycin Type of Intervention Type of Consult: Follow-up Labs Labs: Sodium 138 mmol/L (133-145) 09/10/25 06:15 Potassium 5.0 mmol/L (3.3-5.1) 09/10/25 06:15 Chloride 104 mmol/L (98-108) 09/10/25 06:15 Carbon Dioxide 21.5 mmol/L (21.0-32.0) 09/10/25 06:15 Anion Gap 12 (5-15) 09/10/25 06:15 BUN 38 mg/dL (4-19) H 09/10/25 06:15 Creatinine 6.09 mg/dL (0.70-1.20) H 09/10/25 06:15 Est GFR (MDRD) Non-Af 11 (>60) L 09/10/25 06:15 BUN/Creatinine Ratio 6.3 RATIO (10-20) L 09/10/25 06:15 Glucose 210 mg/dL (70-99) H 09/10/25 06:15 Random Vancomycin 22.7 ug/mL (0.0-15.0) H 09/10/25 06:15 Microbiology Microbiology: Microbiology 09/08/25 09:00 Wound exudate - No Site/Description Given Gram Stain - Final 09/08/25 09:00 Wound exudate - No Site/Description Given Wound Culture - Preliminary Presumptive C albicans Alpha hemolytic organism 09/08/25 09:00 Wound exudate - No Site/Description Given Anaerobic Culture - Preliminary Checking for anaerobes, further studies to follow. Goal Trough Goal Trough: 15-20 mcg/mL Pharmacy Plan for Drug Dosing Pharmacy Plan for Drug Dosing: VANCOMYCIN LEVEL RECEIVED Current Vancomycin Dose: Dosing per HD- last dose 1000mg IV x1 09/09 post-HD session Number of Doses Received: 2 Vancomycin Level: 22.7 Renal Function: on HD. Spoke with Nain from dialysis about plan. patient is to get HD today then will have HD line removed for a HD holiday. HD will resume Sunday per the plan and next HD session will most likely be Sunday afternoon/early evening. Renal Function Trend: n/a Lab/Micro: BCx pending, WCx growing alpha hemolytic organism Vancomycin Plan/Comments: The patient is having HD today. The patient's trough this morning was 22.7. The patient will not get any vancomycin today based on the pre-HD level. Will reschedule a trough for Sunday morning with AM labs since that is the plan for the next HD session. Pending Level: *RANDOM* 09/14/25 @0600 Pharmacy Service will continue to monitor and adjust dosing as required.
[2025-09-10] MEDS: Cefepime HCl 0.5 GM in 0.9% Normal Saline (50mL Bag) 50 ML IV (13:07)
[2025-09-10] MEDS: Metoprolol(XL)Succ 50 MG Tablet PO (13:10)
--- NOTE | 2025-09-10 15:08 | PCM.OPRPT ---
Multi Select Codes Respiratory/Cardiovascular Resp/Cardiovascular CPT Codes: 38797 Removal tunneled cv cath Operative Report (Standard) Operative Information Date of Procedure: 09/10/25 Pre-Operative Diagnosis: Infected tunnel dialysis catheter Post-Operative Diagnosis: Same Surgery/Procedure Performed: Removal of infected tunneled dialysis catheter right internal jugular supervisor silvering department: No Type of Anesthesia: Local Procedure Start Time: 14:35 Procedure Stop Time: 14:45 Select all DRAINS/GRAFTS/IMPLANTS that apply: None Estimated Blood Loss: < 5 cc Specimen collected: Yes Description of specimen(s) removed: Tunnel dialysis tip sent for culture Description of surgery: Informed consent was obtained. Patient's right chest IJ tunneled dialysis catheter was prepped draped usual sterile fashion with Betadine as well as chlorhexidine. Local anesthesia 1% lidocaine with epinephrine was used at the exit site. 15 blade scalpel is used to enlarge the exit site. Hemostat was used to free the cuff from the surrounding tissue. Once this was freed the catheter easily slid out. Pressure was held at the IJ site for about 15 minutes hemostasis was achieved. Tip of the catheter was cut off and sent for culture. Exit site was dressed with 4 x 4 gauze and tape. Plan for replacement tunnel dialysis catheter Sunday by Dr. Medina as I am not here tomorrow or Sunday. Surgical Findings: See operative report Complications Complications: No
[2025-09-10] MEDS: Fluconazole IVPB 200 MG/100 ML BAG 100 MG IV (15:26)
--- NOTE | 2025-09-10 16:24 | PN.HOSP_ITS ---
Reason for Visit Chief Complaint: Generalized weakness, missed dialysis Objective Data Objective Data Vital Signs: Vital Signs Temp Pulse Resp BP Pulse Ox O2 Del Method O2 Flow Rate 98.1 F 94 16 167/84 H 98 Nasal Cannula 2 09/10/25 15:40 09/10/25 15:42 09/10/25 15:40 09/10/25 15:42 09/10/25 15:40 09/10/25 15:40 09/10/25 15:40 Oxygen Flow Rate (L/min) 2 Oxygen Delivery Method Nasal Cannula Weight: 279 lb 1.683 oz Body Mass Index (BMI) 35.8 Intake & Output: Intake and Output for Last 24 Hours 09/08/25 09/09/25 09/10/25 23:59 23:59 23:59 Intake Total 2060 / 2060 525 / 775 305 / 305 Output Total 7790 / 7790 5340 / 5740 3910 / 3910 Balance -5730 / -5730 -4815 / -4965 -3605 / -3605 Lab / Micro Data 09/10/25 06:15 09/10/25 06:15 Labs: Laboratory Results - last 24 hr 09/09/25 17:03: POC Glucose 208 H 09/09/25 22:07: POC Glucose 272 H 09/10/25 06:15: WBC 9.2, RBC 3.07 L, Hgb 7.9 L, Hct 26.6 L, MCV 86.6, MCH 25.7 L , MCHC 29.7 L, RDW Std Deviation 58.7 H, RDW Coeff of Adolfo 18.4 H, Plt Count 233, MPV 10.3, Immature Gran % (Auto) 2.100 H, Neut % (Auto) 58.0, Lymph % (Auto) 22.2, Woods % (Auto) 12.0 H, Eos % (Auto) 4.5, Baso % (Auto) 1.2 H, Absolute Neuts (auto) 5.3, Absolute Lymphs (auto) 2.04, Nucleated RBC % 0, Sodium 138, Potassium 5.0, Chloride 104, Carbon Dioxide 21.5, Anion Gap 12, BUN 38 H, C reatinine 6.09 H, Estim Creat Clear Calc 20.96 L, Est GFR (MDRD) Non-Af 11 L, B UN/Creatinine Ratio 6.3 L, Glucose 210 H, Calcium 9.1, Random Vancomycin 22.7 H 09/10/25 06:39: POC Glucose 174 H 09/10/25 12:10: POC Glucose 174 H Micro: Microbiology 09/08/25 12:10 Blood Culture (Wb) - Dialysis/Fistula Blood Culture - Preliminary No growth in 48 hours. 09/08/25 09:00 Wound exudate - No Site/Description Given Gram Stain - Final 09/08/25 09:00 Wound exudate - No Site/Description Given Wound Culture - Preliminary Presumptive C albicans Alpha hemolytic organism 09/08/25 09:00 Wound exudate - No Site/Description Given Anaerobic Culture - Preliminary Checking for anaerobes, further studies to follow. Rhythm Strip Rhythm Strip: Sinus Rhythm Rate: 97 Ectopy: None Physical Exam Narrative Seen and examined. No acute issues. Heart rate and blood pressure controlled. Patient had dialysis today Seen in the morning. In afternoon patient's RN said that patient wants to leave AMA due to family issue. Patient denies any fever or chills. Physical exam General: Alert, Oriented x3, Cooperative HEENT: Atraumatic, PERRLA, EOMI, Normocephalic. Oral: No Gingival or Mucosal Lesions/ Ulcerations Neck: Supple, No JVD, Negative Carotid Bruits Chest wall/Lungs: Right-sided chest wall tunneled catheter. Air entry diminished in bilateral lung bases. No crepitation/rhonchi Cardiovascular: Regular rate and rhythm, Normal S1,S2, No M/G/R Abdomen: Bowel Sounds Present, Soft, Non Tender, Non-Distended : No dysuria. Still makes urine and about 300 mL/day. No renal angle tenderness. No suprapubic tenderness. Extremities: No edema, Capillary Refill Less than 3 Seconds Skin: Mild expression of pus at the exit point of right dialysis catheter. Tenderness and mild redness present. Musculoskeletal: No Tenderness to Palpation of Joints or Extremities Neurological: Cranial nerves II-XII grossly intact, DTR 2+/4. No acute focal neurological deficit. Psych/Mental Status: Flat affect Assessment & Plan Assessment/Plan (1) Diabetes: (2) A-fib: (3) Chronic anemia: (4) End stage renal disease on dialysis: (5) Acute hyperkalemia: (6) Hypertension: PLAN: Plan 50-year-old male was admitted after he missed dialysis, last dialysis was more than a week ago on Sunday. Feeling generalized weakness. No fever. Has been on dialysis for last 1 week. Patient is being admitted to PCU 1. Tunneled dialysis catheter infection/central line/exit site infection: Blood culture was ordered. Empirically started on IV vancomycin and Levaquin. ID was consulted and changed antibiotic to vancomycin and cefepime. General surgery Dr. Johnson was consulted for removal of tunneled dialysis catheter. Monitor blood culture. 09/09: After discussion with hvac refrigeration technician, surgery, decision was made to dialyze today and tomorrow and then dialysis catheter removal tomorrow. Then dialysis catheter line holiday on the weekend and anticipated new dialysis catheter on Sunday. Prelim wound culture growing alphahemolytic strep and presumptive Maribell albicans 09/10: Patient in dialysis today. Later in afternoon tunneled dialysis catheter was removed. As per nursing staff he wants to leave as signing AMA. Patient recommended not to sign AMA because of multiple issues including dialysis catheter, just removed with chances of possible bleeding/hematoma, no dialysis access with probability of going into hyperkalemia. He needs tunneled dialysis catheter, is being anticipated to insult on coming Sunday. Family made to be aware of this consequences. 2. End-stage kidney disease on Sunday but missed about 10 days of dialysis: Mild hyperkalemia, K5.8 BUN/creatinine 65/9.46. 17, anion gap 18. Patient was dialyzed today. Literature Teacher consulted and discussed with him and he was of the same opinion with general surgery to remove the catheter. 3. Generalized weakness: PT and OT ordered 2.?Paroxysmal atrial fibrillation twelve:-lead EKG shows sinus rhythm 97 bpm. Rate is controlled. Anticoagulation hold prior to dialysis removal. Patient was on Eliquis. 3. Acute hyperkalemia?patient received insulin and glucose, calcium gluconate and albuterol inhalation treatments in the emergency room. EKG does not show signs of hyperkalemia. Patient was dialyzed in the morning 09/09: Potassium is 5.2 improved. 4. Hypertension?: Blood pressure was high 158/86-1 60/85. On hydralazine 50 mg 3 times daily. Noncompliant to medication. 09/10 blood pressure is elevated. Hydralazine oral, dose increased to 75 mg 3 times daily. 5. Diabetes mellitus type 2: Glucose is high. Accu-Chek before meals and at bedtime with Humalog sliding scale coverage and hypoglycemia protocol. On glimepiride 8 mg daily 6. Severe anemia due to end-stage renal disease: Admitting H&H 8.4/27.4% dropped to 7.0/23.3%. No acute bleeding. DVT prophylaxis?bilateral SCDs CODE STATUS?full verified Microbiology Past 72 Hours 09/08/25 12:10 Blood Culture (Wb) - Dialysis/Fistula Blood Culture - Preliminary No growth in 48 hours. 09/08/25 09:00 Wound exudate - No Site/Description Given Gram Stain - Final 09/08/25 09:00 Wound exudate - No Site/Description Given Wound Culture - Preliminary Presumptive C albicans Alpha hemolytic organism 09/08/25 09:00 Wound exudate - No Site/Description Given Anaerobic Culture - Preliminary Checking for anaerobes, further studies to follow. Laboratory Results 09/09/25 17:03: POC Glucose 208 H 09/09/25 22:07: POC Glucose 272 H 09/10/25 06:15: WBC 9.2, RBC 3.07 L, Hgb 7.9 L, Hct 26.6 L, MCV 86.6, MCH 25.7 L , MCHC 29.7 L, RDW Std Deviation 58.7 H, RDW Coeff of Adolfo 18.4 H, Plt Count 233, MPV 10.3, Immature Gran % (Auto) 2.100 H, Neut % (Auto) 58.0, Lymph % (Auto) 22.2, Woods % (Auto) 12.0 H, Eos % (Auto) 4.5, Baso % (Auto) 1.2 H, Absolute Neuts (auto) 5.3, Absolute Lymphs (auto) 2.04, Nucleated RBC % 0, Sodium 138, Potassium 5.0, Chloride 104, Carbon Dioxide 21.5, Anion Gap 12, BUN 38 H, C reatinine 6.09 H, Estim Creat Clear Calc 20.96 L, Est GFR (MDRD) Non-Af 11 L, B UN/Creatinine Ratio 6.3 L, Glucose 210 H, Calcium 9.1, Random Vancomycin 22.7 H 09/10/25 06:39: POC Glucose 174 H 09/10/25 12:10: POC Glucose 174 H
--- NOTE | 2025-09-10 16:24 | PCM.DC.SUM ---
Providers Date of Admission: 09/07/25 Date of Discharge: 09/10/25 Primary Care Physician: PRAFUL Dai Consultations 09/07/25 23:58 Consult: Nephrology Routine Consulting Provider: Christine Paige Reason for Consult: Acute on chronic renal failure EMERGENT Consult: No MD Notified: Yes Date Notified: 09/08/25 Time Notified: 01:55 Method of Notification: Answering Service 09/08/25 09:55 Consult: Infectious Disease Routine Consulting Provider: aNder Bernard Reason for Consult: right dialysis catheter exit site infection/pus EMERGENT Consult: No MD Notified: Yes Date Notified: 09/08/25 Time Notified: 09:56 Method of Notification: ED Physician Initiated 09/08/25 14:23 Consult: General Surgery Routine Consulting Provider: Sarika Dee Reason for Consult: right tunnel dialysis catheter removal EMERGENT Consult: No MD Notified: Yes Date Notified: 09/08/25 Time Notified: 14:24 Method of Notification: Verbal Reason For Visit: ACUTE ON CHRONIC RENAL FAILURE, HYPERKALEMIA Diagnosis Discharge Diagnosis (1) End stage renal disease on dialysis: Status: Acute Code(s): N18.6 - End stage renal disease; Z99.2 - Dependence on renal dialysis Plan 50-year-old male was admitted after he missed dialysis, last dialysis was more than a week ago on Sunday. Feeling generalized weakness. No fever. Has been on dialysis for last 1 week. Patient is being admitted to PCU 1. Tunneled dialysis catheter infection/central line/exit site infection: Blood culture was ordered. Empirically started on IV vancomycin and Levaquin. ID was consulted and changed antibiotic to vancomycin and cefepime. General surgery Dr. Dee was consulted for removal of tunneled dialysis catheter. Monitor blood culture. 09/09: After discussion with fagot heater, surgery, decision was made to dialyze today and tomorrow and then dialysis catheter removal tomorrow. Then dialysis catheter line holiday on the weekend and anticipated new dialysis catheter on Sunday. Prelim wound culture growing alphahemolytic strep and presumptive Maribell albicans 09/10: Patient in dialysis today. Later in afternoon tunneled dialysis catheter was removed. As per nursing staff he wants to leave as signing AMA. Patient recommended not to sign AMA because of multiple issues including dialysis catheter, just removed with chances of possible bleeding/hematoma, no dialysis access with probability of going into hyperkalemia. He needs tunneled dialysis catheter, is being anticipated to insult on coming Sunday. Family made to be aware of this consequences. In the evening, the patient signed AMA against recommendation that he needs to be terated for dialysis catheter exit site infection and monitor for bacteremia. 2. End-stage kidney disease on Sunday but missed about 10 days of dialysis: Mild hyperkalemia, K5.8 BUN/creatinine 65/9.46. 17, anion gap 18. Patient was dialyzed today. Academic Affairs Coordinator consulted and discussed with him and he was of the same opinion with general surgery to remove the catheter. 3. Generalized weakness: PT and OT ordered 2.?Paroxysmal atrial fibrillation twelve:-lead EKG shows sinus rhythm 97 bpm. Rate is controlled. Anticoagulation hold prior to dialysis removal. Patient was on Eliquis. 3. Acute hyperkalemia?patient received insulin and glucose, calcium gluconate and albuterol inhalation treatments in the emergency room. EKG does not show signs of hyperkalemia. Patient was dialyzed in the morning 09/09: Potassium is 5.2 improved. 4. Hypertension?: Blood pressure was high 158/86-1 60/85. On hydralazine 50 mg 3 times daily. Noncompliant to medication. 09/10 blood pressure is elevated. Hydralazine oral, dose increased to 75 mg 3 times daily. 5. Diabetes mellitus type 2: Glucose is high. Accu-Chek before meals and at bedtime with Humalog sliding scale coverage and hypoglycemia protocol. On glimepiride 8 mg daily 6. Severe anemia due to end-stage renal disease: Admitting H&H 8.4/27.4% dropped to 7.0/23.3%. No acute bleeding. DVT prophylaxis?bilateral SCDs CODE STATUS?full verified Microbiology Past 72 Hours 09/08/25 12:10 Blood Culture (Wb) - Dialysis/Fistula Blood Culture - Preliminary No growth in 48 hours. 09/08/25 09:00 Wound exudate - No Site/Description Given Gram Stain - Final 09/08/25 09:00 Wound exudate - No Site/Description Given Wound Culture - Preliminary Presumptive C albicans Alpha hemolytic organism 09/08/25 09:00 Wound exudate - No Site/Description Given Anaerobic Culture - Preliminary Checking for anaerobes, further studies to follow. Laboratory Results 09/09/25 17:03: POC Glucose 208 H 09/09/25 22:07: POC Glucose 272 H 09/10/25 06:15: WBC 9.2, RBC 3.07 L, Hgb 7.9 L, Hct 26.6 L, MCV 86.6, MCH 25.7 L, MCHC 29.7 L, RDW Std Deviation 58.7 H, RDW Coeff of Adolfo 18.4 H, Plt Count 233, MPV 10.3, Immature Gran % (Auto) 2.100 H, Neut % (Auto) 58.0, Lymph % (Auto) 22.2, [place] % (Auto) 12.0 H, Eos % (Auto) 4.5, Baso % (Auto) 1.2 H, Absolute Neuts (auto) 5.3, Absolute Lymphs (auto) 2.04, Nucleated RBC % 0, Sodium 138, Potassium 5.0, Chloride 104, Carbon Dioxide 21.5, Anion Gap 12, BUN 38 H, Creatinine 6.09 H, Estim Creat Clear Calc 20.96 L, Est GFR (MDRD) Non-Af 11 L, BUN/Creatinine Ratio 6.3 L, Glucose 210 H, Calcium 9.1, Random Vancomycin 22.7 H 09/10/25 06:39: POC Glucose 174 H 09/10/25 12:10: POC Glucose 174 H Medications at Discharge Home Medications apixaban 5 mg tablet (Eliquis) 5 mg PO BID blood thinner 06/05/24 gabapentin 300 mg capsule 300 mg PO QHS leg pain 06/05/24 glimepiride 4 mg tablet 8 mg PO DAILY diabetes 06/05/24 insulin glargine 100 unit/mL (3 mL) subcutaneous pen (Lantus Solostar U-100 Insulin) 30 unit subcut QHS diabetes 06/05/24 insulin lispro 100 unit/mL subcutaneous pen (Humalog KwikPen (U-100) Insulin) 1 sliding scale dose subcut TID DM 06/05/24 omeprazole 40 mg capsule,delayed release 40 mg PO BID gerd 06/05/24 rosuvastatin 10 mg tablet 10 mg PO DAILY cholesterol 06/05/24 acetaminophen 325 mg tablet 650 mg PO Q8H PRN pain 06/18/24 calcium acetate(phosphat bind) 667 mg capsule 1,334 mg PO TID dialysis patient 09/08/25 hydralazine 50 mg tablet 50 mg PO TID blood pressure 09/08/25 melatonin 3 mg tablet 3 mg PO QHS sleep 09/08/25 metoprolol succinate 25 mg tablet,extended release 24 hr 25 mg PO DAILY heart 09/08/25 cefdinir 300 mg capsule 300 mg PO Q12H HD access infection, take on HD days after HD done 5 days #3 caps 09/15/25 fluconazole 100 mg tablet 100 mg PO DAILY 5 days #5 tabs 09/15/25 Weight / BMI Weight Weight: 279 lb 1.683 oz Body Mass Index (BMI) 35.8 ABG / Lab / Microbiology Data 09/10/25 06:15 09/10/25 06:15 Microbiology: Microbiology 09/10/25 15:00 Catheter tip - Vas Cath Tip Gram Stain - Final 09/10/25 15:00 Catheter tip - Vas Cath Tip Wound Culture - Final Presumptive C albicans Lactobacillus gasseri 09/10/25 15:00 Catheter tip - Vas Cath Tip Anaerobic Culture - Final Lactobacillus gasseri 09/08/25 12:10 Blood Culture (Wb) - Dialysis/Fistula Blood Culture - Final No growth in 5 days. 09/08/25 09:00 Wound exudate - No Site/Description Given Gram Stain - Final 09/08/25 09:00 Wound exudate - No Site/Description Given Wound Culture - Final Presumptive C albicans Lactobacillus gasseri 09/08/25 09:00 Wound exudate - No Site/Description Given Anaerobic Culture - Final Lactobacillus gasseri Lactobacillus plantarum D/C Instructions DC O2, CPAP, BIPAP Needs Home O2 Discharge instructions: No Meaningful Use Info Meaningful Use Meaningful Use Diagnoses (Choose all that apply): None applicable Discharge Plan Admission Admit Date/Time: 09/07/25 22:54 Primary Reason for Your Visit: Left AMA Attending Provider: Kurt Franklin Primary Care Provider: Phoebe Adam NP Consulting Providers: Christine Paige; David Dumont; Nader Bernard; Sarika Dee Discharge Orders/Prescriptions Prescriptions: No Action acetaminophen 325 mg tablet 650 mg PO Q8H PRN (Reason: pain) melatonin 3 mg tablet 3 mg PO QHS metoprolol succinate 25 mg tablet extended release 24 hr 25 mg PO DAILY calcium acetate(phosphat bind) 667 mg capsule 1,334 mg PO TID hydralazine 50 mg tablet 50 mg PO TID fluconazole 100 mg Tablet 100 mg PO DAILY 5 Days Qty: 5 0RF cefdinir 300 mg capsule 300 mg PO Q12H 5 Days Qty: 3 0RF Rx Instructions: Take after HD completed on dialysis days. omeprazole 40 mg capsule,delayed release(DR/EC) 40 mg PO BID glimepiride 4 mg tablet 8 mg PO DAILY gabapentin 300 mg capsule 300 mg PO QHS insulin lispro [Humalog KwikPen Insulin] 100 unit/mL insulin pen 1 sliding scale dose subcut TID Protocol: 6. Sliding Scale Insulin Custom Condition: mg/dl range Dose/Route: Number of Units Condition: 151-200 Dose/Route: 2 Condition: 201-250 Dose/Route: 4 Condition: 251-300 Dose/Route: 6 Condition: 301-350 Dose/Route: 8 Condition: 351-400 Dose/Route: 10 Condition: 401+ Dose/Route: CONTACT MD Protocol Text: Custom Sliding Scale rosuvastatin 10 mg tablet 10 mg PO DAILY insulin glargine [Lantus Solostar U-100 Insulin] 100 unit/mL (3 mL) insulin pen 30 unit subcut QHS Eliquis 5 mg tablet 5 mg PO BID Referrals / Follow Up: Phoebe Adam NP, ENVIRONMENTAL SCIENCE INSTRUCTOR-C [Primary Care Provider, Medical] Disposition Disposition (needs filled in before D/C Order can be placed): Home, Self Care
--- NOTE | 2025-09-10 19:00 | PN.RENAL_ITS ---
Subjective Subjective no new complaints Objective Data Objective Data Vital Signs: Vital Signs Temp Pulse Resp BP Pulse Ox O2 Del Method O2 Flow Rate 98.1 F 94 16 167/84 H 98 Nasal Cannula 2 09/10/25 15:40 09/10/25 15:42 09/10/25 15:40 09/10/25 15:42 09/10/25 15:40 09/10/25 15:40 09/10/25 15:40 Oxygen Flow Rate (L/min) 2 Oxygen Delivery Method Nasal Cannula Weight: 126.6 kg Body Mass Index (BMI) 35.8 Intake & Output: Intake and Output for Last 24 Hours 09/08/25 09/09/25 09/10/25 23:59 23:59 23:59 Intake Total 2060 / 2060 525 / 775 405 / 405 Output Total 7790 / 7790 5340 / 5740 3910 / 3910 Balance -5730 / -5730 -4815 / -4965 -3505 / -3505 Lab / Micro Data 09/10/25 06:15 09/10/25 06:15 Labs: Laboratory Results - last 24 hr 09/09/25 22:07: POC Glucose 272 H 09/10/25 06:15: WBC 9.2, RBC 3.07 L, Hgb 7.9 L, Hct 26.6 L, MCV 86.6, MCH 25.7 L , MCHC 29.7 L, RDW Std Deviation 58.7 H, RDW Coeff of Adolfo 18.4 H, Plt Count 233, MPV 10.3, Immature Gran % (Auto) 2.100 H, Neut % (Auto) 58.0, Lymph % (Auto) 22.2, [place] % (Auto) 12.0 H, Eos % (Auto) 4.5, Baso % (Auto) 1.2 H, Absolute Neuts (auto) 5.3, Absolute Lymphs (auto) 2.04, Nucleated RBC % 0, Sodium 138, Potassium 5.0, Chloride 104, Carbon Dioxide 21.5, Anion Gap 12, BUN 38 H, C reatinine 6.09 H, Estim Creat Clear Calc 20.96 L, Est GFR (MDRD) Non-Af 11 L, B UN/Creatinine Ratio 6.3 L, Glucose 210 H, Calcium 9.1, Random Vancomycin 22.7 H 09/10/25 06:39: POC Glucose 174 H 09/10/25 12:10: POC Glucose 174 H Micro: Microbiology 09/08/25 12:10 Blood Culture (Wb) - Dialysis/Fistula Blood Culture - Preliminary No growth in 48 hours. 09/08/25 09:00 Wound exudate - No Site/Description Given Gram Stain - Final 09/08/25 09:00 Wound exudate - No Site/Description Given Wound Culture - Preliminary Presumptive C albicans Alpha hemolytic organism 09/08/25 09:00 Wound exudate - No Site/Description Given Anaerobic Culture - Preliminary Checking for anaerobes, further studies to follow. Rhythm Strip Rhythm Strip: Sinus Rhythm Rate: 97 Ectopy: None Physical Exam Narrative Alert awake oriented x 3 no obvious distress no pallor no icterus no JVD s1s2 no murmurs lungs clear Assessment & Plan Assessment/Plan (1) End stage renal disease on dialysis: PLAN: ESRD, on hemodialysis Sunday, Sunday, Sunday. Apparently missed dialysis for about a week. Hyperkalemia in the setting of renal failure, missed dialysis seen on HD today TDC to be removed today after HD likely new line next week
== END 2025-09-10 17:41 | disposition home or self-care (01) | DRG 721 ==
LOC: ED 21:32 → PCU 23:03
PROVIDERS: Internal Medicine Infectious Disease; Admitting Provider Family Medicine; Emergency Provider Emergency Medicine; PCP Registered Nurse; Visit Provider Internal Medicine
DX: T80.211A Bloodstream infection due to central venous catheter, initial encounter (principal); I12.0 Hypertensive chronic kidney disease with stage 5 chronic kidney disease or end stage renal disease; D63.1 Anemia in chronic kidney disease; N17.9 Acute kidney failure, unspecified; N18.6 End stage renal disease; E11.22 Type 2 diabetes mellitus with diabetic chronic kidney disease; I48.0 Paroxysmal atrial fibrillation; E11.42 Type 2 diabetes mellitus with diabetic polyneuropathy; Z99.2 Dependence on renal dialysis; E87.5 Hyperkalemia; Z79.4 Long term (current) use of insulin; F17.210 Nicotine dependence, cigarettes, uncomplicated; Z79.01 Long term (current) use of anticoagulants; Z79.899 Other long term (current) drug therapy; Z79.84 Long term (current) use of oral hypoglycemic drugs; X58.XXXA Exposure to other specified factors, initial encounter
CPT/HCPCS: 36415; 71046; 80048; 80202; 82962; 83036; 85025; 87040; 87070; 87075; 87077; 87205; 90937; 93005; 94640; 97802; 99284; A4216; G0257; J0612

== ENCOUNTER 2025-09-14 13:25 | Inpatient (IN) | payer MEDICAID, SELFPAY ==
[2025-09-14] VITALS (9 sets, daily range): BP systolic 152–195; BP diastolic 75–90; PULSE 88–99; RESP 16–20; TEMP 36.6–37.1; O2SAT 95–98; BMI 37.6; BMI 37.5
--- NOTE | 2025-09-14 15:22 | EX.ED.GENINJ ---
HPI History of Present Illness Chief Complaint: Chest Other Narrative Narrative: Patient is a 50-year-old male with a history of diabetes, A-fib on Eliquis, CKD and anemia. Presenting to the emergency department for dialysis line placement. Was just admitted on 09/07 for hyperkalemia after missing dialysis for more than a week. While he was here he developed a dialysis line infection and after receiving dialysis on 09/10 the line was then pulled and he left AMA due to a in the family. States that since then he has been feeling normal. He denies any fever, chills, nausea, vomiting, abdominal pain, chest pain, shortness of breath. Denies any pain around the area where his dialysis line was at. He usually goes to [facility] for dialysis. He asked that the dialysis line to be placed for outpatient and try to avoid admission. [facility] Medical History Anemia, unspecified Acute kidney failure, unspecified Obstructive and reflux uropathy, unspecified Polyneuropathy, unspecified Jean gangrene Debility Type 2 diabetes mellitus Decubitus ulcer of right buttock, stage 4 Home Medications ?Medication ?Instructions ?Recorded ?Last Taken ?Type apixaban 5 mg tablet (Eliquis) 5 mg PO BID blood thinner 06/05/24 09/09/25 History gabapentin 300 mg capsule 300 mg PO QHS leg pain 06/05/24 Unknown History glimepiride 4 mg tablet 8 mg PO DAILY diabetes 06/05/24 Unknown History insulin glargine 100 unit/mL (3 30 unit subcut QHS diabetes 06/05/24 Unknown History mL) subcutaneous pen (Lantus Solostar U-100 Insulin) insulin lispro 100 unit/mL 1 sliding scale dose subcut TID DM 06/05/24 Unknown History subcutaneous pen (Humalog KwikPen (U-100) Insulin) omeprazole 40 mg capsule,delayed 40 mg PO BID gerd 06/05/24 Unknown History release rosuvastatin 10 mg tablet 10 mg PO DAILY cholesterol 06/05/24 Unknown History acetaminophen 325 mg tablet 650 mg PO Q8H PRN pain 06/18/24 Unknown History calcium acetate(phosphat bind) 667 1,334 mg PO TID dialysis patient 09/08/25 Unknown History mg capsule hydralazine 50 mg tablet 50 mg PO TID blood pressure 09/08/25 Unknown History melatonin 3 mg tablet 3 mg PO QHS sleep 09/08/25 Unknown History metoprolol succinate 25 mg 25 mg PO DAILY heart 09/08/25 Unknown History tablet,extended release 24 hr Allergy/AdvReac Type Severity Reaction Status Date / Time ampicillin Allergy Unknown PT UNABLE Verified 09/14/25 13:29 TO RESPOND-NEEDS F/U Penicillins Allergy Unknown PT UNABLE Verified 09/14/25 13:29 TO RESPOND-NEEDS F/U lisinopril AdvReac Mild nausea Verified 09/14/25 13:29 Social History Smoking Status: Current some day smoker tobacco type: cigarettes ROS ROS ED ROS Narrative see HPI EXAM Physical Exam Narrative Exam Narrative: Vital signs: Reviewed General: Alert and oriented x 3. No acute distress HEENT: Head is normocephalic and atraumatic, sinuses nontender, pupils equal round and reactive. Nares are patent. Oropharynx and throat exams normal. Neck: Supple without lymphadenopathy nontender Cardiovascular: Regular rate and rhythm, no murmurs. No rubs or gallops. Normal S1 and S2 Respiratory: Clear to auscultation bilaterally. No wheezes, rales, rhonchi Chest: The area where the wind was pulled in the right upper chest wall is healing well. There is no erythema, drainage, warmth or fluctuance to the area. Abdominal: Soft and nontender. Normal bowel sounds. No guarding or rebound. Nonsurgical abdomen Extremities: No lower extremity edema. No tenderness. No bruising. Normal range of motion. Normal sensation. Skin: No rash or redness. The rest of the physical exam is unremarkable Const Vital Signs: 09/14/25 13:26 09/14/25 14:59 09/14/25 16:00 Temperature 97.9 F 98.3 F 98.6 F Temperature Source Oral Oral Oral Pulse Rate 99 90 88 Respiratory Rate 18 18 18 Respiratory Pattern Blood Pressure 195/90 H 168/86 H 156/87 H Blood Pressure Mean 125 113 110 Pulse Ox 98 95 96 Oxygen Delivery Method Room Air Room Air Room Air 09/14/25 17:00 09/14/25 17:39 Temperature 98.7 F Temperature Source Oral Pulse Rate 90 95 Respiratory Rate 18 16 Respiratory Pattern Normal Blood Pressure 164/86 H Blood Pressure Mean 112 Pulse Ox 98 Oxygen Delivery Method Room Air MDM MDM MDM Narrative Medical decision making narrative: Patient is a 50-year-old male presenting to the emergency department for placement of a dialysis line. Patient was seen and examined. Vitals are stable. Patient resting bed comfortably no acute distress. Concern at this time would be hyperkalemia or fluid overload from not having his dialysis as scheduled. Will obtain EKG and basic labs to determine need for urgent dialysis versus outpatient dialysis. EKG shows normal sinus rhythm with a right bundle branch block. There is no ischemic changes. There is no evidence of hyperkalemia. It appears similar to an EKG obtained on September 07, 2025. CBC with nonspecific mild leukocytosis of 13.4 and chronic anemia of 8.9. BMP with mild hyponatremia 131 and hyperkalemia of 6.2. Bicarb of 18.1, no anion gap. Glucose of 473. VBG and beta hydroxybutyrate ordered to rule out DKA as the cause of the low bicarb with his hyperglycemia. VBG with pH of 7.322 and a bicarb of 19.3. Negative beta hydroxybutyrate. Electrolyte imbalances are likely due to his CKD. Patient was given hyperkalemic medications including albuterol, insulin and calcium gluconate. Chest x-ray reveals no evidence of fluid overload. No opacities, pneumothorax or wide mediastinum. Radiology read with no acute abnormalities. Did discuss to need for admission given his hyperkalemia and need for dialysis line placement. I did speak with Dr. Paige, product analyst to notify him of the patient and need for dialysis tomorrow. I do not think he needs emergent dialysis at this time. Patient admitted to Dr. Blanc for further management. Clinical impression Hyperkalemia History & Record Review Discussion w/independent historian: Patient and Significant other Additional record(s) reviewed:: Prior inpatient record, Prior ED visit and Prior labs Lab Data Attestation: I reviewed the patient's lab results. Labs: Laboratory Results - last 24 hr 09/14/25 15:50 WBC 13.4 H RBC 3.46 L Hgb 8.9 L Hct 30.1 L MCV 87.0 MCH 25.7 L MCHC 29.6 L RDW Std Deviation 57.7 H RDW Coeff of Adolfo 18.0 H Plt Count 241 MPV 10.3 Immature Gran % (Auto) 1.000 H Neut % (Auto) 71.8 H Lymph % (Auto) 14.9 L [place] % (Auto) 8.5 Eos % (Auto) 2.9 Baso % (Auto) 0.9 Absolute Neuts (auto) 9.6 H Absolute Lymphs (auto) 2.00 Nucleated RBC % 0 Sodium 131 L Potassium 6.2 H* Chloride 99 Carbon Dioxide 18.1 L Anion Gap 14 BUN 54 H Creatinine 7.18 H Estim Creat Clear Calc 18.25 L Est GFR (MDRD) Non-Af 9 L BUN/Creatinine Ratio 7.5 L Glucose 473 H* Calcium 8.7 b-Hydroxybutyric mmol/L 0.1 ABG Data ABG results: ABG 09/14/25 17:28 Specimen Type DINO Sample Site Not entered VBG pH 7.32 VBG pO2 41 H VBG HCO3 19 L VBG Total CO2 20 L VBG O2 Sat (Calc) 72 H VBG Base Excess -7 L POC Mix VBG pCO2 Pt Tmp 37.3 L O2 Delivery Device Not entered Radiography Chest X-Ray - ED: 2 View, Read by ED Physician, Normal, No Acute Disease and No Infiltrates Diagnostic Testing: Clinical Impression(s) from Imaging Studies Chest X-Ray 09/14/25 16:00 IMPRESSION: No acute cardiopulmonary disease. Reading Location: [id number] Discharge Plan Disposition Disposition: [facility] Discharge Date/Time: 09/14/25 19:02
--- NOTE | 2025-09-14 16:00 | RAD_ITS ---
PROCEDURE: CHEST 1 VIEW (PORTABLE) 09/14/2025 REASON FOR EXAM: EVALUATE FOR FLUID OVERLOAD TECHNIQUE: Frontal view of the chest. COMPARISON: 09/07/2025 FINDINGS: Lungs/Pleura: Clear. No pneumothorax or sizable pleural effusion. Heart/Mediastinum: Within normal limits. Bones/Soft tissues: Mild degenerative changes of the spine. RAD/Chest 1 View (Portable) IMPRESSION: No acute cardiopulmonary disease. Reading Location: [id number]
[2025-09-14 16:14] LABS: Hematocrit 30.1 % (40-54); Hemoglobin 8.9 g/dL (13.0-16.5); Immature Granulocytes Count 0.140 X10^3/uL (0.0-0.0); Mean Corp Hgb Conc 29.6 g/dL (32-36); Mean Corpuscular Volume 87.0 fL (80-94); Mean Platelet Vol. 10.3 fl (6.2-12.0); NRBC Flagged by Analyzer 0 % (0-5); Platelet Count 241 K/mm3 (150-450); RBC Distribution Width CV 18.0 % (11.6-14.6); RBC Distribution Width SD 57.7 fl (35.1-43.9); Red Blood Count 3.46 M/mm3 (4.6-6.2); White Blood Count 13.4 K/mm3 (4.4-11.0)
[2025-09-14 16:46] LABS: Anion Gap 14 (5-15); BUN 54 mg/dL (4-19); BUN/Creat Ratio 7.5 RATIO (10-20); Calcium,Total 8.7 mg/dL (7.6-11.0); Carbon Dioxide 18.1 mmol/L (21.0-32.0); Chloride 99 mmol/L (98-108); Estimated Creatinine Clearance 18.25 ml/min (50-250); Glucose 473 mg/dL (70-99); Potassium 6.2 mmol/L (3.3-5.1)
--- NOTE | 2025-09-14 16:47 | ED.RN ---
Critical glucose of 473 and K+ of 6.2. Dr. Everett notified.
[2025-09-14] MEDS: Calcium Gluconate IV 3 GM in Syringe 1 EACH IV (17:24)
[2025-09-14] MEDS: Insulin Lispro 10 UNIT in Syringe 0 ML 6 UNIT IV (17:24)
[2025-09-14 17:32] LABS: SITE Not entered; VBG BASE EXCESS -7 mmol/L (-1.0-3.5); VBG PO2 41 mmHg (25-40); VBG SO2 72 % (50-70); VBG TCO2 20 mmol/L (23-33)
[2025-09-14] MEDS: Albuterol *CONC* 2.5mg/0.5mL VIAL.NEB. 10 MG INHALATION (17:36)
--- NOTE | 2025-09-14 18:01 | PCM.HP.STD ---
HPI - General General Date of Admission: 09/14/25 Date of Service: 09/14/25 Chief Complaint: Need for temporary dialysis line placement HPI Narrative GURINDER HAHN, is a 50 M who presented to [facility] ED on 09/14/2025 with need for temporary dialysis line placement. Medical history significant for ESRD on HD MWF. Patient was recently hospitalized here from 09/07-09/10 for a central venous catheter/catheter infection. Catheter was removed by surgery on 09/10. Blood cultures were negative and blood cultures grew strep like organisms and yeast. Patient was treated with vancomycin, cefepime and fluconazole while inpatient then. Last HD session was on 09/10. Plan was for placement of new tunneled HD line on 09/14 but patient opted to leave AGAINST MEDICAL ADVICE. He noted that his and had recently and he went to her . He came back to the ED today for line placement. In the ED he was noted to be hypertensive to the 190s systolic, was otherwise stable on room air at rest. Chest x-ray was unremarkable. However, he was found to have hyperkalemia with potassium 6.2. No EKG changes noted. He was treated medically in the ED. Hospitalist was then contacted for admission. I saw the patient at bedside in the ED. Patient was sitting back fairly comfortably in bed, conversing normally, in no acute distress. Denied any acute concerns at this time. Will be admitted for further management. [facility] Medical History Anemia, unspecified Acute kidney failure, unspecified Obstructive and reflux uropathy, unspecified Polyneuropathy, unspecified Jean gangrene Debility Type 2 diabetes mellitus Decubitus ulcer of right buttock, stage 4 Home Medications ?Medication ?Instructions ?Recorded ?Last Taken ?Type apixaban 5 mg tablet (Eliquis) 5 mg PO BID blood thinner 06/05/24 09/09/25 History gabapentin 300 mg capsule 300 mg PO QHS leg pain 06/05/24 Unknown History glimepiride 4 mg tablet 8 mg PO DAILY diabetes 06/05/24 Unknown History insulin glargine 100 unit/mL (3 30 unit subcut QHS diabetes 06/05/24 Unknown History mL) subcutaneous pen (Lantus Solostar U-100 Insulin) insulin lispro 100 unit/mL 1 sliding scale dose subcut TID DM 06/05/24 Unknown History subcutaneous pen (Humalog KwikPen (U-100) Insulin) omeprazole 40 mg capsule,delayed 40 mg PO BID gerd 06/05/24 Unknown History release rosuvastatin 10 mg tablet 10 mg PO DAILY cholesterol 06/05/24 Unknown History acetaminophen 325 mg tablet 650 mg PO Q8H PRN pain 06/18/24 Unknown History calcium acetate(phosphat bind) 667 1,334 mg PO TID dialysis patient 09/08/25 Unknown History mg capsule hydralazine 50 mg tablet 50 mg PO TID blood pressure 09/08/25 Unknown History melatonin 3 mg tablet 3 mg PO QHS sleep 09/08/25 Unknown History metoprolol succinate 25 mg 25 mg PO DAILY heart 09/08/25 Unknown History tablet,extended release 24 hr Allergy/AdvReac Type Severity Reaction Status Date / Time ampicillin Allergy Unknown PT UNABLE Verified 09/14/25 13:29 TO RESPOND-NEEDS F/U Penicillins Allergy Unknown PT UNABLE Verified 09/14/25 13:29 TO RESPOND-NEEDS F/U lisinopril AdvReac Mild nausea Verified 09/14/25 13:29 Social History Smoking Status: Current some day smoker tobacco type: cigarettes ROS Constitutional Constitutional: Denies chills, fatigue, fever(s) or weakness Cardiovascular Cardiovascular: Denies chest pain Respiratory/Chest Respiratory/Chest: Denies shortness of breath at rest Gastrointestinal Gastrointestinal: Denies abdominal pain Musculoskeletal Musculoskeletal: Denies arthralgias or myalgias Neurologic Neurologic: Denies dizziness, focal weakness or headache(s) Vital Signs Vital Signs Vital Signs: 09/14/25 13:26 09/14/25 14:59 09/14/25 16:00 Temperature 97.9 F 98.3 F 98.6 F Temperature Source Oral Oral Oral Pulse Rate 99 90 88 Respiratory Rate 18 18 18 Respiratory Pattern Blood Pressure 195/90 H 168/86 H 156/87 H Blood Pressure Mean 125 113 110 Pulse Ox 98 95 96 Oxygen Delivery Method Room Air Room Air Room Air 09/14/25 17:00 09/14/25 17:39 Temperature 98.7 F Temperature Source Oral Pulse Rate 90 95 Respiratory Rate 18 16 Respiratory Pattern Normal Blood Pressure 164/86 H Blood Pressure Mean 112 Pulse Ox 98 Oxygen Delivery Method Room Air Weight Weight: 133.084 kg Body Mass Index (BMI) 37.6 Physical Exam Const alert, oriented x3 and no apparent distress Constitutional Narrative: Middle-age male, class II obesity, mildly fatigued appearing, otherwise sitting back fairly comfortably in bed, answering questions appropriately, in no acute distress. General Appearance: cooperative and comfortable HEENT normocephalic, head/scalp atraumatic, hearing grossly normal bilaterally, nasal mucous membranes and turbinates normal and moist oral mucous membranes Eyes PERRL, EOMs intact bilaterally and conjunctivae normal Neck full ROM Chest inspection of chest normal Chest Narrative: Bandage in place over prior tunneled HD catheter site. No infection noted at site. Resp normal respiratory effort, normal air movement, no use of accessory muscles and clear to auscultation bilaterally Cardio regular rate, regular rhythm, no murmurs and peripheral pulses 2+ throughout GI normal to inspection, nondistended, normoactive bowel sounds, soft to palpation, non-tender and non-distended Back/Spine normal ROM Extremity normal to inspection, full ROM and no pedal edema Skin no rashes or lesions noted Psych mental status grossly normal Results Lab / Micro Data 09/14/25 15:50 09/14/25 22:09 Labs: Laboratory Results - last 24 hr 09/14/25 15:50: WBC 13.4 H, RBC 3.46 L, Hgb 8.9 L, Hct 30.1 L, MCV 87.0, MCH 25.7 L, MCHC 29.6 L, RDW Std Deviation 57.7 H, RDW Coeff of Adolfo 18.0 H, Plt Count 241, MPV 10.3, Immature Gran % (Auto) 1.000 H, Neut % (Auto) 71.8 H, Lymph % (Auto) 14.9 L, [place] % (Auto) 8.5, Eos % (Auto) 2.9, Baso % (Auto) 0.9, Absolute Neuts (auto) 9.6 H, Absolute Lymphs (auto) 2.00, Nucleated RBC % 0, Sodium 131 L, Potassium 6.2 H*, Chloride 99, Carbon Dioxide 18.1 L, Anion Gap 14, BUN 54 H, Creatinine 7.18 H, Estim Creat Clear Calc 18.25 L, Est GFR (MDRD) Non-Af 9 L, BUN/Creatinine Ratio 7.5 L, Glucose 473 H*, Calcium 8.7 ABG Data ABG results: ABG 09/14/25 17:28 Specimen Type DINO Sample Site Not entered VBG pH 7.32 VBG pO2 41 H VBG HCO3 19 L VBG Total CO2 20 L VBG O2 Sat (Calc) 72 H VBG Base Excess -7 L POC Mix VBG pCO2 Pt Tmp 37.3 L O2 Delivery Device Not entered Imaging Radiology Impression Chest X-Ray 09/14/25 16:00 IMPRESSION: No acute cardiopulmonary disease. Reading Location: [id number] Assessment & Plan Assessment/Plan (1) Acute hyperkalemia: (2) Central line infection: QUALIFIERS: Encounter type: initial encounter Qualified Code(s): T80.219A - Unspecified infection due to central venous catheter, initial encounter (3) End stage renal disease on dialysis: PLAN: Plan Patient is a 50-year-old male who presented to [facility] ED on 09/14/2025 for replacement of tunneled HD catheter after recent catheter infection and removal. 1. Hyperkalemia in setting of ESRD on HD with frequent missed HD sessions ? Admit under inpatient status to PCU. Nephrology consulted. Patient on HD MWF. Recently hospitalized here from 09/07-09/10 for infected HD catheter line. Line removed by general surgery on 09/10. ID followed, cultures were negative and will culture grew only yeast and lactobacillus. Was treated with IV antibiotics while inpatient but opted to leave AMA on 09/10 and was not prescribed antibiotics at discharge. Noninfectious appearing on admit and prior catheter site noninfectious appearing as well. Potassium 6.2 on admit. No EKG changes noted. Treated medically in the ED with repeat potassium 6.0. Line replacement tomorrow planned with general surgery as below and will then need dialysis for appropriate clearance of potassium. Follow-up a.m. BMP. Appreciate further nephrology recommendations. 2. Recent tunneled HD catheter line infection with removal ? Surgery and ID consulted. Tunneled line removal on 09/10 as above. Plan initially was for replacement of line on 09/14 but patient left AMA as above. N.p.o. midnight with plan for tunneled line placement tomorrow. Patient only completed 4 days of IV antibiotics during recent hospitalization; appreciate ID recommendations on need for further antibiotics at this time. 3. Paroxysmal A-fib on Eliquis, hypertension, hyperlipidemia ? Stable in normal sinus rhythm on admit. Hypertensive to the 190s systolic. Will hold home Eliquis for procedure tomorrow. Continue home hydralazine, Toprol and statin. 4. Poorly controlled type 2 diabetes mellitus with diabetic neuropathy ? Blood glucose 473 on admit. Recent A1c 12.2% on 09/08. Continue home Lantus 30 units at night and will treat with Humalog high-dose sliding scale insulin for now, adjust as needed. Continue home gabapentin. 5. Chronic anemia of renal disease ? Hemoglobin 8.9 on admit, stable at recent baseline around 8-9. 6. GERD ? Continue home PPI. 7. Class II obesity ? BMI 37 on admit. Complicates hospital course and care. DVT prophylaxis: SCDs CODE STATUS: Full code, verified Expected disposition: Home, TBD Total clinical time spent by myself addressing the patient's medical issues, reviewing all the data, and collaborating with patient's care team: 78 minutes. Charges/Coding Visit Charges Inpatient E&M: 93710 Init Hosp L3
[2025-09-14 18:05] LABS: BETA-HYDROXYBUTYRATE 0.1 mmol/L (0.0-0.3)
--- OUTSIDE RECORDS SUMMARY | 2025-09-14 18:52 | XMS RPT_ITS | CCD ---
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 Tender Name Role Phone Artie Jackson Primary Care Provider [phone] MANUEL SOLIS, DR ALVA Primary Care Physician [phone] Manuel SOLIS, Artie Valencia Primary Care Provider Manuel SOLIS, Artie Valencia Primary Care Provider Manuel SOLIS, Artie Valencia Primary Care Provider MANUEL SOLIS, DR ALVA Primary Care Physician [phone] JAIR PIZARRO-ABEBA, [facility] Primary Care Physician Ledy Son Unavailable Unavailable CIARA VIGIL MD Consulting Unavailable TAMIKA SOLIS, CARMELO León Attending Unavailable JAIR GUTIÉRREZ, [facility] Primary Care Unavailab trish RICO MD, DR ILEANA Lara Admitting FRANCESCA Atkins MD Consulting Unavailable HUBER BROWNE MD, DR SON ALVARENGA Consulting Unavaila manav GUTIÉRREZ, [facility] Primary Care Unavailab trish ACUNA MD, MARTÍNEZ Attending Unavailable LINDA SOLIS, JOAN Consulting Unavailable WILLA RODARTE MD Consulting Unavailab le JAIR GUTIÉRREZ, [facility] Primary Care Unavailab trish MALONE DO, MATHEW Attending Unavailable JAIR GUTIÉRREZ, [facility] Primary Care Unavailab JIMENA Fraire DO Attending Unavailable JAIR GUTIÉRREZ, [facility] Primary Care Unavailab SATNAM Mann DO Attending Unavailable BRAVO SIN Admitting Unavaila manav GUTIÉRREZ, [facility] Primary Care Unavailab trish ALLEN DO, DR JOHNSON Referring Unavailable KALEY POSEY, DR JOHNSON Attending Unavailable SARAH SOLIS FACP, CATHERINE León Consulting Unavail able JAIR GALLEGOFIBER OPTIC CENTRAL OFFICE INSTALLER, [facility] Primary Care Unavailab trish JOHNSON MD, DR VALLE Consulting Unavailab trish HOGAN DO, JIMENA Attending Unavailable SHELTON GUN FITTER-[employer]EXICAN FOOD MACHINE TENDERBRAVO Consulting Unavailana cristina ADAM APRN-FIBER OPTIC CENTRAL OFFICE INSTALLER, [facility] Primary Care Unavailab trish JOHNSON MD, [...] LINDA SOLIS, JOAN Admitting Unavailable JAIR GUTIÉRREZ, [facility] Care Unavailab Dougie SOLIS, VIANCA Attending Unavailable TUYET AGUAYO MD Consulting Unavailable LINDA SOLIS, JOAN Consulting Unavailable KAYLEEN BERNAL MD Consulting Unavailable LIDA MUNOZ MD Consulting Unavailable DAMARI FATIMA MD Consulting Unavailable TU JHA MD Consulting Unavailable SHANKAR POSEY, CHELA Rhodes Consulting UnavailFRANCESCA Do MD Consulting Unavailable KAIN FERNANDES MD, TRUDI Consulting Unavailable MARJAN ELLIS MD Consulting Unavailable HUBER BROWNE MD, DR SON ALVARENGA Consulting Unavailana cristina WIGGINS MD, POLY Consulting Unavailable BERNIE HERNÁNDEZ MD Consulting Unavailable LAYTON EUBANKS DO Consulting Unavailmiriam WILLIAM MD, VIRIDIANA Consulting Unavailable RUBY SOLIS, DR LI Consulting Unavailable MIHIR CHOWDHURY MD Consulting Unavailable KAREN SOLIS, BOB Harkins Consulting Unavailable CIARA VIGIL MD Consulting Unavailable JAIR GUTIÉRREZ, PHOEBE Consulting Unavailab Elsy SOLIS, DR ORTEGA Consulting Unavailable Garrick Velasquez MD Unavailable [phone] Jose Morrison MD Unavailable [phone] Manpreet ADAMS, Maria Elena Ornelas Unavailable Unavailable JAIR PIZARRO-FIBER OPTIC CENTRAL OFFICE INSTALLER, [facility] Care Unavailab trish WILLIAM MD, VIRIDIANA Admitting Unavailable ORALIA SAMUELS MD Attending Unavailable RITIKA CURTIS Consulting UnavailGABRIELA Craig MD Consulting Unavailable KAREN SOLIS, BOB Harkins Consulting Unavailable LUIS DANIEL SOLIS, CORAL Consulting Unavailable JR SOLIS, TU Cooper Consulting Unavailable RHONDA SOLIS, MARJAN Consulting Unavailable STEWART SOLIS, VIRIDIANA Andrea Unavailable JAIR GUN FITTER-FIBER OPTIC CENTRAL OFFICE INSTALLER, [facility] Primary Care Unavailab JIMENA Fraire DO Attending Unavailable PHOEBE ADAM Attending Unavailable [facility] Care Unavailable GARRICK VELASQUEZ Attending Unavailable GALAN, SATNAM Referring Unavailable [facility] Care Unavailable JOSE MORRISON Attending Unavailable PHOEBE ADAM Referring Unavailable [facility] Care Unavailable GARRICK VELASQUEZ Attending Unavailable GARRICK VELASQUEZ Referring Unavailable [facility] Care Unavailable JOSE MORRISON Admitting Unavailable JOSE MORRISON Attending Unavailable [facility] Unavailable SHREYA OLIVERA Attending Unavailable [facility] Unavailable Siska, Milvia Consulting Unavailable Arun FIBER OPTIC CENTRAL OFFICE INSTALLER, Janel E Referring Unavailabl e Arun FIBER OPTIC CENTRAL OFFICE INSTALLER, Janel E [facility] Un[facility] Siska, Milvia Consulting Unavailable Arun FIBER OPTIC CENTRAL OFFICE INSTALLER, Janel E Referring Unavailabl e Arun FIBER OPTIC CENTRAL OFFICE INSTALLER, Janel E [facility] Unavailable Siska, Milvia Consulting Unavailable Arun FIBER OPTIC CENTRAL OFFICE INSTALLER, Janel E Referring Unavailabl e Arun FIBER OPTIC CENTRAL OFFICE INSTALLER, Janel E [facility] Unavailable Jair FIBER OPTIC CENTRAL OFFICE INSTALLER, [facility] Unavailable Madan Charles Attending Unavailable Jair FIBER OPTIC CENTRAL OFFICE INSTALLER, [facility] Unavailable Mary Alice Evangelista Attending Unavailable Jair FIBER OPTIC CENTRAL OFFICE INSTALLER, [facility] Unavailable Grecia, Jayaprakas Consulting Unavailable Ledy Howard Attending Unavailable David Dumont Admitting Unavailable David Dumont Consulting Unavailable Milvia Bernard Consulting Unavailable Robotham, Sarika Consulting Unavailable Rigoberto, Kurt Consulting Unavailable Jair FIBER OPTIC CENTRAL OFFICE INSTALLER, [facility] Care Unavailable David Dumont Attending Unavailable Kurt Franklin Attending Unavailable Leila, Sarika Attending Unavailable Barby Webster Attending Unavailable [facility] Unavailable Jair FIBER OPTIC CENTRAL OFFICE INSTALLER, [facility] Unavailable Barby Webster Referring Unavailable Barby Webster Attending Unavailable Jair FIBER OPTIC CENTRAL OFFICE INSTALLER, [facility] Unavailable Grecia, Jayaprakas Consulting Unavailable Rigoberto, Kurt Attending Unavailable David Dumont Admitting Unavailable David Dumont Consulting Unavailable Milvia Bernard Consulting Unavailable Robotham, Sarika Consulting Unavailable Satnam Galan Primary Care Unavailable Satnam Galan Referring Unavailable Milvia Allen Attending Unavailable Satnam Galan Referring Unavailable Satnam Galan Primary Care Unavailable Milvia Allen Attending Unavailable Satnam Galan Referring Unavailable Satnam Galan Primary Care Unavailable Milvia Allen Attending Unavailable Adama, Satnam Primary Care Unavailable Satnam Galan Referring Unavailable Milvia Allen Attending Unavailable Allergies Allergy Classification Reported Allergen(s) Allergy Type Date of Onset Reaction(s) Facility (20 sources) Ampicillin; Translations: [ampicillin] Drug Allergy 08-27-20 [place] Comment on above: Patient has tolerate d Zosyn (4 sources) Penicillins Propensity to adverse reactions to drug 08-27-20 [place] (6 sources) Penicillin; Translations: [penicillins] Drug Allergy [facility] (20 sources) Penicillins Drug Intolerance 08-27-20 [facility] (20 sources) dulaglutide Drug Allergy 10-03-20 23 Nausea And Vomiting [facility] Work Phone: (6 sources) Penicillin; Translations: [penicillins] Drug Allergy Unknown [facility] Comment on above: Patient has tolerate d Zosyn has tolerated admini stration of IV Zosyn during hospitilization 04/17/24 (1 source) Ampicillin Drug Allergy 09-07-20 [facility] (1 source) Lisinopril Drug Allergy 09-07-20 [facility] (1 source) Penicillins Drug allergy (disorder) 09-07-20 [facility] Medications Current Medications Medication Drug Class(es) [...] qDay, # 30 tab(s), 0 Refill(s), Pharmacy: [facility]/pharmacy #[id number], 188, cm, 02/10/25 1:33:00 EDT, Height, kg, 02/15/25 5:52:00 EDT, Dosing Weight Start Date: 02/15/25 Status: Ordered Quantity: 30.0 Unit: tab(s) Repeat number: 1 Start: 03-11-2024 End: 06-16-2025 amLODIPine 10 mg oral tablet Dose : 10 mg = 1 tab(s), Oral, qDay, # 30 tab(s), 0 Refill(s), Pharmacy: [facility] #[id number], 188, cm, 03/08/24 16:58:00 EDT, Height, kg, [...] BID, # 60 tab(s), 4 Refill(s), Pharmacy: [facility] #[id number], 187, cm, 05/08/24 5:24:00 EDT, Height, 114.4, kg, 05/08/24 5:24:00 EDT, Dosing Weight Start Date: 05/15/24 Stop Date: 10/12/24 Status: Ordered Quantity: 60.0 Unit: tab(s) Repeat number: 5 Blood Glucose Monitoring Suppl (TRUE METRIX METER) OLIVIA (4 sources) Start: 03-12-2020 Blood Glucose Monitoring Suppl (TRUE METRIX METER) OLIVIA Indications: Type 2 diabetes mellitus with diabetic polyneuropathy, without long-term current use of insulin (HCC) 1 kit by Does not apply route 2 times daily Patient tests blood sugar two times daily and as needed. 1 Device 0 03/12/2020 Active Blood Pressure kit (13 sources) Start: 04-11-2025 Blood Pressure kit Indications: Essential hypertension 1 [...] BIDM, # 60 tab(s), 0 Refill(s), Pharmacy: [facility]/pharmacy #[id number], 188, cm, 02/10/25 1:33:00 EDT, Height, kg, [...] Refill(s), 07/09/24 11:25:00 AM EDT, [facility]acy: [facility] #[id number], 188, cm, 06/18/24 18:59:00 EDT, Height, 109.5, kg, 06/18/24 18:59:00 EDT, Dosing Weight Start Date: 06/25/24 Stop Date: 07/09/24 Status: Ordered Start: 05-02-2024 End: 05-28-2024 cefdinir 300 mg oral capsule Dose : 300 mg = 1 cap(s), Oral, BID, X 13 day(s), # 26 cap(s), 0 Refill(s), 05/28/24 11:46:00 AM EDT, Pharmacy: [facility] #[id number], 187, cm, 05/08/24 5:24:00 EDT, Height, 114.4, [...] >160, # 42 tab(s), 0 Refill(s), Pharmacy: [facility]/pharmacy #[id number], 188, cm, 02/10/25 1:33:00 EDT, Height, kg, [...] Stop Date: 04/20/24 Status: Ordered Continuous Glucose Plating Inspector (FreeStyle Yanni 3 [place]) device (20 sources) Start: 09-22-2024 Continuous Glucose Plating Inspector (FreeStyle Yanni 3 [place]) device Indications: Diabetes mellitus with proteinuria (HCC) , Type 2 diabetes mellitus with diabetic polyneuropathy, with long-term current use of insulin (HCC) Use as directed 1 each 09/22/2024 Active Start: 09-22-2024 Continuous Glu cose Plating Inspector (FreeStyle Yanni 3 [place]) device Indications: 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) , Type 2 diabetes mellitus with diabetic polyneuropathy, with long-term current use of insulin (HCC) Use as directed 1 each 09/22/2024 Active Continuous Glucose Sensor (FreeStyle Yanni 3 Sensor) misc (20 sources) Start: 04-28-2025 Continuous Glu cose Sensor (FreeStyle Yanni 3 Sensor) misc Indications: Diabetes mellitus with proteinuria (HCC) , Type 2 diabetes mellitus with diabetic polyneuropathy, with long-term current use of insulin (HCC) every 14 (fourteen) days. 2 each 04/28/2025 Active Start: 04-28-2025 Continuous Glu cose Sensor (FreeStyle Yanni 3 Sensor) misc Indications: 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) , Type 2 diabetes mellitus with diabetic polyneuropathy, with long-term current use of insulin (HCC) every 14 (fourteen) days. 2 each 04/28/2025 Active Start: 11-10-2024 End: 04-27-2025 Continuous Glucose Sensor (F reeStyle Yanni 3 Sensor) misc Indications: 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) , Type 2 diabetes mellitus with diabetic polyneuropathy, with long-term current use of insulin (HCC) every 14 (fourteen) days. 2 each 11/10/2024 04/27/2025 Discontinued (Reorder) Start: 11-10-2024 Continuous Glu cose Sensor (FreeStyle Yanni 3 Sensor) misc Indications: 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) , Type 2 diabetes mellitus with diabetic polyneuropathy, with long-term current use of insulin ([facility]) every 14 (fourteen) days. 2 each 5 11/10/2024 Active Start: 09-22-2024 Continuous Glu cose Sensor (FreeStyle Yanni 3 Sensor) [facility] Indications: Diabetes mellitus with proteinuria (CMS/HCC) (HCC) ([facility]) , Type 2 diabetes mellitus with diabetic polyneuropathy, with long-term current use of insulin ([facility]) every 14 (fourteen) days. 2 each 5 [...] polyneuropathy, with long-term current use of insulin ([facility]) Take 1 capsule (300 mg) by mouth Nightly. 90 capsule 06/16/2025 Active Start: 03-26-2025 take 1 capsule by mo uth once daily gabapentin (Neurontin) 300 MG capsule Indications: Type 2 diabetes mellitus with diabetic polyneuropathy, with long-term current use of insulin ([facility]) TAKE 1 CAPSULE BY MOUTH EVERY DAY [...] Start: 09-22-2024 take 1 capsule by mo uth once [...] with long-term current use of insulin (CMS/HCC) ([facility]) , Diabetic polyneuropathy associated with type 2 diabetes mellitus (CMS/HCC) (HCC) Take 1 capsule (300 mg) by mouth every evening. 30 capsule 0 05/18/2023 Active Start: 03-09-2023 End: 04-08-2023 gabapentin (Neurontin) 300 M G capsule Indications: Type 2 diabetes mellitus with diabetic polyneuropathy, with long-term current use of insulin (CMS/HCC) (HCC) , Diabetic polyneuropathy associated with type 2 diabetes mellitus (CMS/HCC) ([facility]) Take 1 capsule (300 mg) by mouth every evening. 30 capsule 0 04/09/2023 Active Start: 01-08-2023 gabapentin (Ne urontin) 300 MG capsule Indications: Type 2 diabetes mellitus with diabetic polyneuropathy, with long-term current use of insulin (CMS/HCC) ([facility]) , Diabetic polyneuropathy associated with type 2 diabetes mellitus (CMS/HCC) ([facility]) Take 1 capsule (300 mg) by mouth every evening. 30 capsule 0 01/08/2023 Active Start: 12-20-2022 End: 01-08-2023 take 2 capsules by mouth once daily in the evening gabapentin (Neurontin) 100 MG capsule Indications: Diabetic polyneuropathy associated with type 2 diabetes mellitus (CMS/HCC) ([facility]) take 2 capsules by mouth every evening 60 capsule 0 12/20/2022 01/08/2023 Discontinued (Reorder) Start: 11-17-2022 take 2 capsules by m outh once daily in the evening gabapentin (Neurontin) 100 MG capsule Indications: Diabetic polyneuropathy associated with type 2 diabetes mellitus (CMS/HCC) ([facility]) take 2 capsules by mouth every evening [...] current use of insulin (HCC) Take 2 capsules by mouth nightly for [...] use of insulin (HCC) Take 1 capsule by mouth nightly for 30 days. 30 capsule 2 05/03/2020 06/02/2020 Active glimepiride 4 mg oral tablet (20 sources) Sulfonylurea Start: 04-24-2025 take 2 tablets by mouth once daily at breakfast glimepiride (Amaryl) 4 MG tablet Indications: Type 2 diabetes mellitus with diabetic polyneuropathy, with long-term current use of insulin (HCC) TAKE 2 TABLETS (8 MG) BY MOUTH DAILY (WITH BREAKFAST). 180 tablet 1 04/24/2025 Active Start: 10-24-2024 take 2 tablets by mo uth once daily at breakfast glimepiride (Amaryl) 4 MG tablet Indications: Type 2 diabetes mellitus with diabetic polyneuropathy, with long-term current use of insulin (HCC) Take 2 tablets (8 mg) by mouth [...] use of insulin (HCC) Take 2 tablets (8 mg) by mouth every morning (before breakfast). 180 tablet 1 12/14/2023 Active Start: 11-14-2022 End: 05-07-2023 take 2 tablets by mouth once daily before breakfast glimepiride (Amaryl) 4 MG tablet Indications: Type 2 diabetes mellitus with diabetic polyneuropathy, with long-term current use of insulin (CMS/HCC) ([facility]) take 2 tablets by mouth every morning [...] 50 MG tablet Indications: Cardiomyopathy, unspecified type ([facility]) , Essential hypertension Take 1 tablet (50 [...] long-term current use of insulin (HCC) , Diabetes mellitus with proteinuria (CMS/HCC) (HCC) ([facility]) inject 14 units subcutaneously in the morning. 06/24/2025 Active Start: 06-16-2025 inject 10 [IU] by berry bcutaneous injection in the morning Lantus SoloStar 100 UNIT/ML pen Indications: Type 2 diabetes mellitus with diabetic polyneuropathy, with long-term current use of insulin (HCC) , 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) inject 10 units subcutaneously in the morning. 3 mL 3 06/16/2025 Active Start: 09-24-2024 End: 06-16-2025 Lantus SoloStar 100 UNIT/ML pen Indications: 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) , Type 2 diabetes mellitus with diabetic polyneuropathy, with long-term current use of insulin (HCC) inject 16 units subcutaneously nightly 09/24/2024 06/16/2025 [...] qHS, # 15 mL, 0 Refill(s), Pharmacy: [facility] #[id number], 188, , 03/08/24 16:58:00 EDT, Height, kg, 03/08/24 16:58:00 EDT, Dosing Weight Start Date: 03/20/24 Status: Ordered Start: 03-11-2024 inject 1 dose by sub cutaneous injection once daily at bedtime Lantus 100 units/mL10 ml vial solution Dose : 30 unit(s) =, Subcutaneous, qHS, # 15 mL, 0 Refill(s), Pharmacy: [facility] #[id number], 188, , 03/08/24 16:58:00 EDT, Height, kg, 03/08/24 16:58:00 EDT, Dosing Weight Start Date: 03/11/24 Status: Ordered Start: 06-06-2023 End: 09-22-2024 Lantus SoloStar 100 UNIT/ML pen Indications: Diabetes mellitus with proteinuria (CMS/HCC) (HCC) ([facility]) , Type 2 diabetes mellitus with diabetic polyneuropathy, with long-term current use of insulin ([facility]) inject 14 units subcutaneously every morning 09/22/2024 Active Start: 04-13-2023 End: 05-14-2023 inject 14 [IU] by subcutaneous injection once daily in the morning, then inject 14 [IU] by subcutaneous injection once daily in the evening Lantus SoloStar 100 UNIT/ML pen Indications: Type 2 diabetes mellitus with diabetic polyneuropathy, with long-term current use of insulin (CMS/HCC) ([facility]) , Diabetic polyneuropathy associated with type 2 diabetes mellitus (CMS/HCC) ([facility]) , Diabetes mellitus with proteinuria (CMS/HCC) ([facility]) inject 14 units subcutaneously every morning and 14 units every evening 3 mL 1 05/14/2023 Active Start: 07-05-2022 End: 04-13-2023 Lantus SoloStar 100 UNIT/ML pen Indications: Type 2 diabetes mellitus with diabetic polyneuropathy, with long-term current use of insulin (CMS/HCC) ([facility]) , Diabetic polyneuropathy associated with type 2 diabetes mellitus (CMS/HCC) ([facility]) , Diabetes mellitus with proteinuria (CMS/HCC) ([facility]) inject 12 units subcutaneously every morning and 14 units EVERY EVENING Strength: 100 UNIT/ML 3 mL 1 01/08/2023 Active Start: 05-02-2019 End: 06-01-2019 inject 0.2 mL by subcutaneous injection once daily at bedtime Lantus 100 units/mL10 ml vial solution Dose : 20 unit(s) = 0.2 mL, Subcutaneous, qHS, # 6 mL, 0 Refill(s), Pharmacy: [facility] Start Date: 05/02/19 Stop Date: [...] 0 Refill(s), 07/09/24 11:25:00 AM EDT, [id number], 188, cm, 06/18/24 18:59:00 EDT, Height, 109.5, [...] Refill(s), 05/28/24 11:47:00 AM EDT, [facility]acy: [facility] #[id number], 187, cm, 05/08/24 5:24:00 EDT, Height, 114.4, [...] release tablet 5 mg polyethylene glycol [id number] [id number] mg powder for oral solution (20 sources) [...] polyneuropathy, with long-term current use of insulin ([facility]) ([facility]) Inject 0.25 mg under the skin 1 (one) time per week. 1 each 0 05/28/2023 Active SITagliptin 50 mg oral tablet (17 sources) Dipeptidyl Peptidase 4 Inhibitor Start: 08-29-2022 End: 05-28-2023 Januvia 50 MG tablet Indications: Type 2 diabetes mellitus with diabetic polyneuropathy, with long-term current use of insulin ([facility]) ([facility]) , Diabetic polyneuropathy associated with type 2 diabetes mellitus ([facility]) ([facility]) , Diabetes mellitus with proteinuria ([facility]) ([facility]) Take 1 tablet (50 mg) by mouth [...] 05/19/24, # 60 tab(s), 2 Refill(s), Pharmacy: [facility] #[id number], 187, cm, 05/08/24 5:24:00 EDT, Height, kg, [...] polyneuropathy, with long-term current use of insulin ([facility]) ([facility]) , Class 2 obesity due to excess [...] polyneuropathy, with long-term current use of insulin ([facility]) , Chronic renal disease, stage IV ([facility]) Take 1 tablet (10 mg) by mouth [...] Start: 01-15-2023 take 2 tablets by mo ut twice daily metFORMIN XR (Glucophage-XR) 500 MG [...] Start: 07-27-2021 take 2 tablets by mo [facility] twice daily metFORMIN (GLUCOPHAGE-XR) 500 MG extended release tablet Indications: Type 2 diabetes mellitus with diabetic polyneuropathy, without long-term current use of insulin ([facility]) take 2 tablets by mouth twice a day 120 tablet 1 07/27/2021 Active Start: 05-31-2020 take 2 tablets by mo [facility] twice daily metFORMIN (GLUCOPHAGE-XR) 500 MG extended release tablet Indications: Type 2 diabetes mellitus with diabetic polyneuropathy, without long-term current use of insulin ([facility]) take 2 tablets by mouth twice a day 120 tablet 5 05/31/2020 Active Start: 12-12-2019 take 2 tablets by mo uth twice daily metFORMIN (GLUCOPHAGE XR) 500 MG extended release tablet Indications: Type 2 diabetes mellitus with diabetic polyneuropathy, without long-term current use of insulin ([facility]) Take 2 tablets by mouth 2 times daily 120 tablet 5 12/12/2019 Active Start: 05-02-2019 End: 06-01-2019 metFORMIN 1000 mg oral table t Dose : 1,000 mg = 1 tab(s), Oral, BID, # 60 tab(s), 0 Refill(s), Pharmacy: [facility] Start Date: 05/02/19 Stop Date: 06/01/19 [...] device, implant and graft, initial encounter] Episodic Complications of surgical procedures or medical care (2 sources) Unspecified infection due to central venous catheter, initial encounter; Translations: [Unspecified infection due to central venous catheter, initial encounter] Onset: 5 Episodic Conduction disorders (2 sources) Bifascicular block; [...] unspecified] 06-16-2025 Episodic Deficiency and other anemia (4 sources) Anemia, unspecified; Translations: [Anemia, unspecified] Onset: [...] 8 05-15-2018 Chronic Fluid and electrolyte disorders (12 sources) Hyperkalemia; Translations: [Hyperkalemia] Onset: 5 04-06-2023 [...] dependence; Translations: [Nicotine dependence, cigarettes, uncomplicated] Onset: 2 01-08-2023 Chronic Unclassified (1 source) Obesity, class 1; Translations: [Obesity, class 1] Onset: 4 Past or Other Problems Problem Classification Problem [...] 06-22-2021 06-22-2021 Episodic Other aftercare (2 sources) snf (current) use of insulin; 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 Hemodialysis cath tip Checking for anaerobes, further studies to follow. Normal [facility] Comment on above: Performed By: #### L 500.2500, L100.0100 #### [facility] [address] [place], [address] CUAN List Antibiotics [place] t 50 Hours? no exudate from around dialysis cath insertion site Organism is too fastidious for routine susceptibility studies. Susceptibility not normally performed on this organism Lactobacillus gasseri Lactobacillus plantarum Normal [facility] Comment on above: Performed By: #### L 500.2500, L100.0100 #### [facility] [address] [place], [address] Culture, Blood (WB)on 2024 CUB No growth in 5 days. Normal [facility] Comment on above: Performed By: #### L 501.080 #### [facility] [address] [place], [address] Wound Cultureon 09-13-2025 WC cefepime, vancomycin . Hemodialysis cath tip #2 Susceptibility not normally performed on this organism. Further studies to follow. Wound Culture Wound Culture Wound Culture Presumptive C albicans Amount Growth 2+ Gram positive luis angel Gram positive luis angel Normal [facility] Comment on above: Performed By: #### L 500.2500, L100.0100 #### [facility] [address] [place], [address] Basic Metabolic Profile (BMP )on 09-12-2025 BUN Normal 4-19 [facility] Comment on above: Result Comment: Canc elled via OM: Order cancelled - Patient discharged Performed By: #### L 500.2500, L100.0100 #### [facility] [address] [place], [address] BUN/CRE Normal 10-20 [facility] Comment on above: Result Comment: Canc elled via OM: Order cancelled - Patient discharged Performed By: #### L 500.2500, L100.0100 #### [facility] [address] [place], [address] Calcium Normal 7.6-11.0 [facility] Comment on above: Result Comment: Canc elled via OM: Order cancelled - Patient discharged Performed By: #### L 500.2500, L100.0100 #### [facility] [address] [place], [address] CL Normal 98-108 [facility] Comment on above: Result Comment: Canc elled via OM: Order cancelled - Patient discharged Performed By: #### L 500.2500, L100.0100 #### [facility] [address] [place], [address] CO2 Normal 21.0-32.0 [facility] Comment on above: Result Comment: Canc elled via OM: Order cancelled - Patient discharged Performed By: #### L 500.2500, L100.0100 #### [facility] [address] [place], [address] CREAT,SERUM Normal 0.70-1.20 [facility] Comment on above: Result Comment: Canc elled via OM: Order cancelled - Patient discharged Performed By: #### L 500.2500, L100.0100 #### [facility] [address] [place], [address] eGFR Normal >60 [facility] Comment on above: Result Comment: Canc elled via OM: Order cancelled - Patient discharged Performed By: #### L 500.2500, L100.0100 #### [facility] [address] [place], [address] GAP Normal 5-15 [facility] Comment on above: Result Comment: Canc elled via OM: Order cancelled - Patient discharged Performed By: #### L 500.2500, L100.0100 #### [facility] [address] [place], [address] GLU Normal 70-99 [facility] Comment on above: Result Comment: Canc elled via OM: Order cancelled - Patient discharged Performed By: #### L 500.2500, L100.0100 #### [facility] [address] [place], [address] Potassium Normal 3.3-5.1 [facility] Comment on above: Result Comment: Canc elled via OM: Order cancelled - Patient discharged Performed By: #### L 500.2500, L100.0100 #### [facility] [address] [place], [address] Basic Metabolic Profile (BMP) Normal 133-145 [facility] Comment on above: Result Comment: Canc elled via OM: Order cancelled - Patient discharged Performed By: #### L 500.2500, L100.0100 #### [facility] [address] [place], [address] CBC W/Diff, Automatedon 10-2 Absolute Neut Normal 2.0-7.7 [facility] Comment on above: Result Comment: Canc elled via OM: Order cancelled - Patient discharged Performed By: #### L 500.2500, L100.0100 #### [facility] [address] [place], [address] HCT Normal 40-54 [facility] Comment on above: Result Comment: Canc elled via OM: Order cancelled - Patient discharged Performed By: #### L 500.2500, L100.0100 #### [facility] [address] [place], [address] HGB Normal 13.0-16.5 [facility] Comment on above: Result Comment: Canc elled via OM: Order cancelled - Patient discharged Performed By: #### L 500.2500, L100.0100 #### [facility] [address] [place], [address] MCH Normal 27.0-32.0 [facility] Comment on above: Result Comment: Canc elled via OM: Order cancelled - Patient discharged Performed By: #### L 500.2500, L100.0100 #### [facility] [address] [place], [address] MCHC Normal 32-36 [facility] Comment on above: Result Comment: Canc elled via OM: Order cancelled - Patient discharged Performed By: #### L 500.2500, L100.0100 #### [facility] [address] [place], [address] MCV Normal 80-94 [facility] Comment on above: Result Comment: Canc elled via OM: Order cancelled - Patient discharged Performed By: #### L 500.2500, L100.0100 #### [facility] [address] [place], [address] NEUT% Normal 47-70 [facility] Comment on above: Result Comment: Canc elled via OM: Order cancelled - Patient discharged Performed By: #### L 500.2500, L100.0100 #### [facility] [address] [place], [address] PLT Normal 150-450 [facility] Comment on above: Result Comment: Canc elled via OM: Order cancelled - Patient discharged Performed By: #### L 500.2500, L100.0100 #### [facility] [address] [place], [address] RBC Normal 4.6-6.2 [facility] Comment on above: Result Comment: Canc elled via OM: Order cancelled - Patient discharged Performed By: #### L 500.2500, L100.0100 #### [facility] [address] [place], [address] RDW CV Normal 11.6-14.6 [facility] Comment on above: Result Comment: Canc elled via OM: Order cancelled - Patient discharged Performed By: #### L 500.2500, L100.0100 #### [facility] [address] [place], [address] RDW SD Normal 35.1-43.9 [facility] Comment on above: Result Comment: Canc elled via OM: Order cancelled - Patient discharged Performed By: #### L 500.2500, L100.0100 #### [facility] [address] [place], [address] WBC Normal 4.4-11.0 [facility] Comment on above: Result Comment: Canc elled via OM: Order cancelled - Patient discharged Performed By: #### L 500.2500, L100.0100 #### [facility] [address] [place], [address] Basic Metabolic Profile (BMP )on 09-11-2025 BUN Normal - [facility] Comment on above: Result Comment: Canc elled via OM: Order cancelled - Patient discharged Performed By: #### L 100.0100, L500.2500 #### [facility] [address] [place], [address] BUN/CRE Normal - [facility] Comment on above: Result Comment: Canc elled via OM: Order cancelled - Patient discharged Performed By: #### L 100.0100, L500.2500 #### [facility] [address] [place], [address] Calcium Normal 7.6-11.0 [facility] Comment on above: Result Comment: Canc elled via OM: Order cancelled - Patient discharged Performed By: #### L 100.0100, L500.2500 #### [facility] [address] [place], [address] CL Normal 98-108 [facility] Comment on above: Result Comment: Canc elled via OM: Order cancelled - Patient discharged Performed By: #### L 100.0100, L500.2500 #### [facility] [address] [place], [address] CO2 Normal 21.0-32.0 [facility] Comment on above: Result Comment: Canc elled via OM: Order cancelled - Patient discharged Performed By: #### L 100.0100, L500.2500 #### [facility] [address] [place], [address] CREAT,SERUM Normal 0.70-1.20 [facility] Comment on above: Result Comment: Canc elled via OM: Order cancelled - Patient discharged Performed By: #### L 100.0100, L500.2500 #### [facility] [address] [place], [address] eGFR Normal >60 [facility] Comment on above: Result Comment: Canc elled via OM: Order cancelled - Patient discharged Performed By: #### L 100.0100, L500.2500 #### [facility] [address] [place], [address] GAP Normal 5-15 [facility] Comment on above: Result Comment: Canc elled via OM: Order cancelled - Patient discharged Performed By: #### L 100.0100, L500.2500 #### [facility] [address] [place], [address] GLU Normal 70-99 [facility] Comment on above: Result Comment: Canc elled via OM: Order cancelled - Patient discharged Performed By: #### L 100.0100, L500.2500 #### [facility] [address] [place], [address] Potassium Normal 3.3-5.1 [facility] Comment on above: Result Comment: Canc elled via OM: Order cancelled - Patient discharged Performed By: #### L 100.0100, L500.2500 #### [facility] [address] [place], [address] Basic Metabolic Profile (BMP) Normal 133-145 [facility] Comment on above: Result Comment: Canc elled via OM: Order cancelled - Patient discharged Performed By: #### L 100.0100, L500.2500 #### [facility] [address] [place], [address] CBC W/Diff, Automatedon 10-2 Absolute Neut Normal 2.0-7.7 [facility] Comment on above: Result Comment: Canc elled via OM: Order cancelled - Patient discharged Performed By: #### L 100.0100, L500.2500 #### [facility] [address] [place], [address] HCT Normal 40-54 [facility] Comment on above: Result Comment: Canc elled via OM: Order cancelled - Patient discharged Performed By: #### L 100.0100, L500.2500 #### [facility] [address] [place], [address] HGB Normal 13.0-16.5 [facility] Comment on above: Result Comment: Canc elled via OM: Order cancelled - Patient discharged Performed By: #### L 100.0100, L500.2500 #### [facility] [address] [place], [address] MCH Normal 27.0-32.0 [facility] Comment on above: Result Comment: Canc elled via OM: Order cancelled - Patient discharged Performed By: #### L 100.0100, L500.2500 #### [facility] [address] [place], [address] MCHC Normal 32-36 [facility] Comment on above: Result Comment: Canc elled via OM: Order cancelled - Patient discharged Performed By: #### L 100.0100, L500.2500 #### [facility] [address] [place], [address] MCV Normal 80-94 [facility] Comment on above: Result Comment: Canc elled via OM: Order cancelled - Patient discharged Performed By: #### L 100.0100, L500.2500 #### [facility] [address] [place], [address] NEUT% Normal 47-70 [facility] Comment on above: Result Comment: Canc elled via OM: Order cancelled - Patient discharged Performed By: #### L 100.0100, L500.2500 #### [facility] [address] [place], [address] PLT Normal 150-450 [facility] Comment on above: Result Comment: Canc elled via OM: Order cancelled - Patient discharged Performed By: #### L 100.0100, L500.2500 #### [facility] [address] [place], [address] RBC Normal 4.6-6.2 [facility] Comment on above: Result Comment: Canc elled via OM: Order cancelled - Patient discharged Performed By: #### L 100.0100, L500.2500 #### [facility] [address] [place], [address] RDW CV Normal 11.6-14.6 [facility] Comment on above: Result Comment: Canc elled via OM: Order cancelled - Patient discharged Performed By: #### L 100.0100, L500.2500 #### [facility] [address] [place], [address] RDW SD Normal 35.1-43.9 [facility] Comment on above: Result Comment: Canc elled via OM: Order cancelled - Patient discharged Performed By: #### L 100.0100, L500.2500 #### [facility] [address] [place], [address] WBC Normal 4.4-11.0 [facility] Comment on above: Result Comment: Canc elled via OM: Order cancelled - Patient discharged Performed By: #### L 100.0100, L500.2500 #### [facility] [address] [place], [address] Gram Stainon 09-11-2025 GS cefepime, vancomycin . Hemodialysis cath tip Gram Stain 1+ Yeast Like Organisms 1+ Gram positive rods No White Blood Cells Normal [facility] Comment on above: Performed By: #### L 500.2500, L100.0100 #### [facility] [address] [place], [address] Wound Cultureon 09-11-2025 List Antibiotics [place] 48 Hours? no exudate from around dialysis cath insertion site #2 Susceptibility not normally performed on this organism. Presumptive C albicans Amount Growth 3+ Lactobacillus gasseri Lactobacillus gasseri Normal [facility] Comment on above: Performed By: #### L 500.2500, L100.0100 #### [facility] [address] [place], [address] Basic Metabolic Profile (BMP )on 09-10-2025 BUN/CRE 6.3 RATIO Low - [facility] Comment on above: Performed By: #### L 501.080 #### [facility] [address] [place], [address] Calcium [Mass/Vol] 9.1 mg/dL Normal 7.6-11.[address] [facility] Comment on above: Performed By: #### L 501.080 #### [facility] [address] [place], [address] Chloride [Moles/Vol] 104 mmol/L Normal 98-108 [facility] Comment on above: Performed By: #### L 501.080 #### [facility] [address] [place], [address] CO2 [Moles/Vol] 21.5 mmol/L Normal 21.0-32.0 [facility] Comment on above: Performed By: #### L 501.080 #### [facility] [address] [place], [address] Creatinine [Mass/Vol] 6.09 mg/dL High 0.70-1.20 [facility] Comment on above: Performed By: #### L 501.080 #### [facility] [address] [place], [address] ECRCL 20.96 ml/min Low 50-250 [facility] Comment on above: Performed By: #### L 501.080 #### [facility] [address] [place], [address] GAP 12 Normal 5-15 [facility] Comment on above: Performed By: #### L 501.080 #### [facility] [address] [place], [address] GFR/1.73 sq M.predicted among non-blacks MDRD (S/P/Bld) [Vol rate/Area] 11 mL/min/{1.73_m2} Low >60 [facility] Comment on above: Result Comment: mL/m in/1.73m2 CKD-EPI Creatinine Equation (2020) Performed By: #### L 501.080 #### [facility] [address] [place], [address] Glucose [Mass/Vol] 210 mg/dL High 70-[address] [facility] Comment on above: Performed By: #### L 501.080 #### [facility] [address] [place], [address] Potassium [Moles/Vol] 5.0 mmol/L Normal 3.3-5.1 [facility] Comment on above: Performed By: #### L 501.080 #### [facility] [address] [place], [address] Sodium [Moles/Vol] 138 mmol/L Normal 133-[address] [facility] Comment on above: Performed By: #### L 501.080 #### [facility] [address] [place], [address] Urea nitrogen [Mass/Vol] 38 mg/dL High 4-19 [facility] Comment on above: Performed By: #### L 501.080 #### [facility] [address] [place], [address] Bedside Glucoseon 09-10-2025 FINGERSTICK GLU 174 mg/dL High 74-106 [facility] Comment on above: Result Comment: EDVIN GEMENT OF PATIENT CARE PER NURSING PROTOCOL Performed By: #### L 501.080 #### [facility] [address] [place], [address] FINGERSTICK GLU 174 mg/dL High 74-106 [facility] Comment on above: Result Comment: EVDIN GEMENT OF PATIENT CARE PER NURSING PROTOCOL Performed By: #### L 501.080 #### [facility] [address] [place], [address] FINGERSTICK GLU 272 mg/dL High 74-106 [facility] Comment on above: Result Comment: EDVIN GEMENT OF PATIENT CARE PER NURSING PROTOCOL Performed By: #### L 501.080 #### [facility] [address] [place], [address] CBC W/Diff, Automatedon 10-2 Absolute Lymph 2.04 X10 3/uL Normal 0.83-4.51 [facility] Comment on above: Performed By: #### L 501.080 #### [facility] [address] [place], [address] Absolute Neut 5.3 X10 3/uL Normal 2.0-7.7 [facility] Comment on above: Performed By: #### L 501.080 #### [facility] [address] [place], [address] Basophils/100 WBC (Bld) 1.2 % High 0-1 [facility] Comment on above: Performed By: #### L 501.080 #### [facility] [address] [place], [address] Eosinophils/100 WBC (Bld) 4.5 % Normal 0-5 [facility] Comment on above: Performed By: #### L 501.080 #### [facility] [address] [place], [address] Erythrocyte distribution width (RBC) [Ratio] 18.4 % High 11.6-14.6 [facility] Comment on above: Performed By: #### L 501.080 #### [facility] [address] [place], [address] Hematocrit (Bld) [Volume fraction] 26.6 % Low 40-54 [facility] Comment on above: Performed By: #### L 501.080 #### [facility] [address] [place], [address] Hemoglobin (Bld) [Mass/Vol] 7.9 g/dL Low 13.0-16.5 [facility] Comment on above: Performed By: #### L 501.080 #### [facility] [address] [place], [address] IG% 2.100 High 0.0-0.9 [facility] Comment on above: Result Comment: IG% - Immature Granulocytes (promyelocytes, myelocytes and metamyelocytes) > 1% indicates that a LEFT SHIFT is Present. Performed By: #### L 501.080 #### [facility] [address] [place], [address] Lymphocytes/100 WBC (Bld) 22.2 % Normal 19-41 [facility] Comment on above: Performed By: #### L 501.080 #### [facility] [address] [place], [address] MCH (RBC) [Entitic mass] 25.7 pg Low 27.0-32.0 [facility] Comment on above: Performed By: #### L 501.080 #### [facility] [address] [place], [address] MCHC (RBC) [Mass/Vol] 29.7 g/dL Low 32-36 [facility] Comment on above: Performed By: #### L 501.080 #### [facility] [address] [place], [address] MCV (RBC) [Entitic vol] 86.6 fL Normal 80-94 [facility] Comment on above: Performed By: #### L 501.080 #### [facility] [address] [place], [address] Monocytes/100 WBC (Bld) 12.0 % High 0-10 [facility] Comment on above: Performed By: #### L 501.080 #### [facility] [address] [place], [address] Neutrophils/100 WBC (Bld) 58.0 % Normal 47-70 [facility] Comment on above: Performed By: #### L 501.080 #### [facility] [address] [place], [address] Nucleated RBC (Bld) [#/Vol] 0 10*3/uL Normal 0-5 [facility] Comment on above: Performed By: #### L 501.080 #### [facility] [address] [place], [address] Platelet mean volume (Bld) [Entitic vol] 10.3 fL Normal 6.2-12.0 [facility] Comment on above: Performed By: #### L 501.080 #### [facility] [address] [place] [place], [address] Platelets (Bld) [#/Vol] 233 10*3/uL Normal 150-450 [facility] Comment on above: Performed By: #### L 501.080 #### [facility] [address] [place] [place], [address] RBC (Bld) [#/Vol] 3.07 10*6/uL Low 4.6-6.2 [facility] Comment on above: Performed By: #### L 501.080 #### [facility] [address] [place], [address] RDW SD 58.7 fl High 35.1-43.9 [facility] Comment on above: Performed By: #### L 501.080 #### [facility] [address] [place], [address] WBC (Bld) [#/Vol] 9.2 10*3/uL Normal 4.4-11.[address] [facility] Comment on above: Performed By: #### L 501.080 #### [facility] [address] [place], [address] Operative Reporton 5 Operative Report [facility] Medical Records Department [address] [place] [address] Operative Report 09/10/25 1508 MR#: [id number] Acct: [id number] Name: GURINDER HAHN Rep #: [id number] : 1975 50 From: Sarika Dee MD PCP: PRAFUL Dai Status:ADM IN Location: [place] [address] Multi Select Codes Respiratory/Cardiovascul ar Resp/Cardiovascular CPT Codes: 45836 Removal tunneled cv cath Operative Report (Standard) Operative Information Date of Procedure: 09/10/25 Pre-Operative Diagnosis: Infected tunnel dialysis catheter Post-Operative Diagnosis: Same Surgery/Procedure Performed: Removal of infected tunneled dialysis catheter right 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 Patient's right chest IJ tunneled dialysis catheter was prepped draped usual sterile fashion with Betadine as well as chlorhexidine. Local anesthesia 1% lidocaine with epinephrine was used at the exit site. 15 blade scalpel is used to enlarge the exit site. Hemostat was used to free the cuff from the surrounding tissue. Once this was freed the catheter easily slid out. Pressure was held at the IJ site for about 15 minutes hemostasis was achieved. Tip of the catheter was cut off and sent for culture. Exit site was dressed with 4 x 4 gauze and tape. Plan for replacement tunnel dialysis catheter Sunday by Dr. Medina as I am not here tomorrow or Sunday. Surgical Findings: See operative report Complications Complications: No 09/10/25 1519 Cosigner Signature (if applicable): CC: PRAFUL Adam; Dr. Crhistine Paige MD; Dr. David Dumont MD; Dr. Milvia Bernard MD; Dr. Sarika Dee MD Signed Normal [facility] Vancomycin, Random Levelon 1 VANCO, RANDOM 22.7 ug/mL High 0.0-15.0 [facility] Comment on above: Result Comment: VANC OMYCIN STANDARD DRUG THERAPY: CRITICAL VALUE IS > 15.0 mg/L VANCOMYCIN HIGH INTENSITY THERAPY: CRITICAL VALUE IS > 20.0 mg/L PLEASE CONTACT PHARMACY SERVICES (#[id number]) FOR INTERPRETATION OF RESULTS. THIS RESULT DOES NOT REPRESENT A PEAK OR TROUGH LEVEL FOR THIS DRUG. Performed By: #### L 501.080 #### [facility] [address] [place], [address] Basic Metabolic Profile (BMP )on 09-09-2025 BUN/CRE 6.6 RATIO Low 10-20 [facility] Comment on above: Performed By: #### L 500.2500, L100.0100 #### [facility] [address] [place], [address] Calcium [Mass/Vol] 8.9 mg/dL Normal 7.6-11.[address] [facility] Comment on above: Performed By: #### L 500.2500, L100.0100 #### [facility] [address] [place], [address] Chloride [Moles/Vol] 102 mmol/L Normal 98-108 [facility] Comment on above: Performed By: #### L 500.2500, L100.0100 #### [facility] [address] [place], [address] CO2 [Moles/Vol] 21.3 mmol/L Normal 21.0-32.0 [facility] Comment on above: Performed By: #### L 500.2500, L100.0100 #### [facility] [address] [place], [address] Creatinine [Mass/Vol] 7.15 mg/dL High 0.70-1.20 [facility] Comment on above: Performed By: #### L 500.2500, L100.0100 #### [facility] [address] [place], [address] ECRCL 18.18 ml/min Low 50-250 [facility] Comment on above: Performed By: #### L 500.2500, L100.0100 #### [facility] [address] [place], [address] GAP 14 Normal 5-15 [facility] Comment on above: Performed By: #### L 500.2500, L100.0100 #### [facility] [address] [place], [address] GFR/1.73 sq M.predicted among non-blacks MDRD (S/P/Bld) [Vol rate/Area] 9 mL/min/{1.73_m2} Low >60 [facility] Comment on above: Result Comment: mL/m in/1.73m2 CKD-EPI Creatinine Equation (2020) Performed By: #### L 500.2500, L100.0100 #### [facility] [address] [place], [address] Glucose [Mass/Vol] 110 mg/dL High 70-[address] [facility] Comment on above: Performed By: #### L 500.2500, L100.0100 #### [facility] [address] [place], [address] Potassium [Moles/Vol] 5.2 mmol/L High 3.3-5.1 [facility] Comment on above: Performed By: #### L 500.2500, L100.0100 #### [facility] [address] [place], [address] Sodium [Moles/Vol] 137 mmol/L Normal 133-[address] [facility] Comment on above: Performed By: #### L 500.2500, L100.0100 #### [facility] [address] [place], [address] Urea nitrogen [Mass/Vol] 47 mg/dL High 4-19 [facility] Comment on above: Performed By: #### L 500.2500, L100.0100 #### [facility] [address] [place], [address] Bedside Glucoseon 09-09-2025 FINGERSTICK GLU 208 mg/dL High 74-106 [facility] Comment on above: Result Comment: EDVIN YEN OF PATIENT CARE PER NURSING PROTOCOL Performed By: #### L 501.080 #### [facility] [address] [place], [address] FINGERSTICK GLU 149 mg/dL High 74-106 [facility] Comment on above: Result Comment: EDVIN GEMENT OF PATIENT CARE PER NURSING PROTOCOL Performed By: #### L 501.080 #### [facility] [address] [place], [address] FINGERSTICK GLU 83 mg/dL Normal 74-106 [facility] Comment on above: Result Comment: EDVIN GEMENT OF PATIENT CARE PER NURSING PROTOCOL Performed By: #### L 501.080 #### [facility] [address] [place], [address] CBC W/Diff, Automatedon 10-2 -2024 Absolute Lymph 2.00 X10 3/uL Normal 0.83-4.51 [facility] Comment on above: Performed By: #### L 500.2500, L100.0100 #### [facility] [address] [place], [address] Absolute Neut 5.8 X10 3/uL Normal 2.0-7.7 [facility] Comment on above: Performed By: #### L 500.2500, L100.0100 #### [facility] [address] [place], [address] Basophils/100 WBC (Bld) 1.0 % Normal 0-1 [facility] Comment on above: Performed By: #### L 500.2500, L100.0100 #### [facility] [address] [place], [address] Eosinophils/100 WBC (Bld) 3.6 % Normal 0-5 [facility] Comment on above: Performed By: #### L 500.2500, L100.0100 #### [facility] [address] [place], [address] Erythrocyte distribution width (RBC) [Ratio] 18.5 % High 11.6-14.6 [facility] Comment on above: Performed By: #### L 500.2500, L100.0100 #### [facility] [address] [place], [address] Hematocrit (Bld) [Volume fraction] 24.4 % Low 40-54 [facility] Comment on above: Performed By: #### L 500.2500, L100.0100 #### [facility] [address] [place], [address] Hemoglobin (Bld) [Mass/Vol] 7.3 g/dL Low 13.0-16.5 [facility] Comment on above: Performed By: #### L 500.2500, L100.0100 #### [facility] [address] [place], [address] IG% 1.300 High 0.0-0.9 [facility] Comment on above: Result Comment: IG% - Immature Granulocytes (promyelocytes, myelocytes and metamyelocytes) > 1% indicates that a LEFT SHIFT is Present. Performed By: #### L 500.2500, L100.0100 #### [facility] [address] [facility] [place], [address] Lymphocytes/100 WBC (Bld) 21.1 % Normal 19-41 [facility] Comment on above: Performed By: #### L 500.2500, L100.0100 #### [facility] [address] [place], [address] MCH (RBC) [Entitic mass] 25.8 pg Low 27.0-32.0 [facility] Comment on above: Performed By: #### L 500.2500, L100.0100 #### [facility] [address] [place], [address] MCHC (RBC) [Mass/Vol] 29.9 g/dL Low 32-36 [facility] Comment on above: Performed By: #### L 500.2500, L100.0100 #### [facility] [address] [place], [address] MCV (RBC) [Entitic vol] 86.2 fL Normal 80-94 [facility] Comment on above: Performed By: #### L 500.2500, L100.0100 #### [facility] [address] [place], [address] Monocytes/100 WBC (Bld) 12.4 % High 0-10 [facility] Comment on above: Performed By: #### L 500.2500, L100.0100 #### [facility] [address] [place], [address] Neutrophils/100 WBC (Bld) 60.6 % Normal 47-70 [facility] Comment on above: Performed By: #### L 500.2500, L100.0100 #### [facility] [address] [place], [address] Nucleated RBC (Bld) [#/Vol] 0 10*3/uL Normal 0-5 [facility] Comment on above: Performed By: #### L 500.2500, L100.0100 #### [facility] [address] [place], [address] Platelet mean volume (Bld) [Entitic vol] 10.6 fL Normal 6.2-12.0 [facility] Comment on above: Performed By: #### L 500.2500, L100.0100 #### [facility] [address] [place], [address] Platelets (Bld) [#/Vol] 225 10*3/uL Normal 150-450 [facility] Comment on above: Performed By: #### L 500.2500, L100.0100 #### [facility] [address] [place], [address] RBC (Bld) [#/Vol] 2.83 10*6/uL Low 4.6-6.2 [facility] Comment on above: Performed By: #### L 500.2500, L100.0100 #### [facility] [address] [place], [address] RDW SD 58.2 fl High 35.1-43.9 [facility] Comment on above: Performed By: #### L 500.2500, L100.0100 #### [facility] [address] [place], [address] WBC (Bld) [#/Vol] 9.5 10*3/uL Normal 4.4-11.[address] [facility] Comment on above: Performed By: #### L 500.2500, L100.0100 #### [facility] [address] [place], [address] Basic Metabolic Profile (BMP )on 09-08-2025 BUN/CRE 6.8 RATIO Low 10-20 [facility] Comment on above: Performed By: #### L 500.2500, L100.0100 #### [facility] [address] [place], [address] Calcium [Mass/Vol] 8.6 mg/dL Normal 7.6-11.[address] [facility] Comment on above: Performed By: #### L 500.2500, L100.0100 #### [facility] [address] [place], [address] Chloride [Moles/Vol] 100 mmol/L Normal 98-108 [facility] Comment on above: Performed By: #### L 500.2500, L100.0100 #### [facility] [address] [place], [address] CO2 [Moles/Vol] 17.1 mmol/L Low 21.0-32.0 [facility] Comment on above: Performed By: #### L 500.2500, L100.0100 #### [facility] [address] [place], [address] Creatinine [Mass/Vol] 9.46 mg/dL Invalid Interpretation Code 0.70-1.20 [facility] Comment on above: Result Comment: Crit ical Result(s) Called at 0629: by: LATRELL BOUDREAUX TO [facility]. ??Results read back by same. Performed By: #### L 500.2500, L100.0100 #### [facility] [address] [place], [address] ECRCL 14.07 ml/min Low 50-250 [facility] Comment on above: Performed By: #### L 500.2500, L100.0100 #### [facility] [address] [place], [address] GAP 18 High 5-15 [facility] Comment on above: Performed By: #### L 500.2500, L100.0100 #### [facility] [address] [place], [address] GFR/1.73 sq M.predicted among non-blacks MDRD (S/P/Bld) [Vol rate/Area] 6 mL/min/{1.73_m2} Low >60 [facility] Comment on above: Result Comment: mL/m in/1.73m2 CKD-EPI Creatinine Equation (2020) Performed By: #### L 500.2500, L100.0100 #### [facility] [address] [place], [address] Glucose [Mass/Vol] 308 mg/dL High 70-[address] [facility] Comment on above: Performed By: #### L 500.2500, L100.0100 #### [facility] [address] [place], [address] Potassium [Moles/Vol] 5.8 mmol/L High 3.3-5.1 [facility] Comment on above: Performed By: #### L 500.2500, L100.0100 #### [facility] [address] [place], [address] Sodium [Moles/Vol] 135 mmol/L Normal 133-[address] [facility] Comment on above: Performed By: #### L 500.2500, L100.0100 #### [facility] [address] [place], [address] Urea nitrogen [Mass/Vol] 65 mg/dL High 4-19 [facility] Comment on above: Performed By: #### L 500.2500, L100.0100 #### [facility] [address] [place], [address] Bedside Glucoseon 09-08-2025 FINGERSTICK GLU 214 mg/dL High 74-106 [facility] Comment on above: Result Comment: EDVIN GEMENT OF PATIENT CARE PER NURSING PROTOCOL Performed By: #### L 501.080 #### [facility] [address] [place], [address] FINGERSTICK GLU 290 mg/dL High 74-106 [facility] Comment on above: Result Comment: EDVIN GEMENT OF PATIENT CARE PER NURSING PROTOCOL Performed By: #### L 500.2500, L100.0100 #### [facility] [address] [place], [address] FINGERSTICK GLU 286 mg/dL High 74-106 [facility] Comment on above: Result Comment: EDVIN GEMENT OF PATIENT CARE PER NURSING PROTOCOL Performed By: #### L 500.2500, L100.0100 #### [facility] [address] [place], [address] FINGERSTICK GLU 269 mg/dL High 74-106 [facility] Comment on above: Result Comment: EDVIN GEMENT OF PATIENT CARE PER NURSING PROTOCOL Performed By: #### L 501.080 #### [facility] [address] [place], [address] FINGERSTICK GLU 295 mg/dL High 74-106 [facility] Comment on above: Result Comment: EDVIN YEN OF PATIENT CARE PER NURSING PROTOCOL Performed By: #### L 501.080 #### [facility] [address] [place], [address] CBC W/Diff, Automatedon 10-2 Absolute Lymph 1.36 X10 3/uL Normal 0.83-4.51 [facility] Comment on above: Performed By: #### L 500.2500, L100.0100 #### [facility] [address] [place], [address] Absolute Neut 6.8 X10 3/uL Normal 2.0-7.7 [facility] Comment on above: Performed By: #### L 500.2500, L100.0100 #### [facility] [address] [place], [address] Basophils/100 WBC (Bld) 0.6 % Normal 0-1 [facility] Comment on above: Performed By: #### L 500.2500, L100.0100 #### [facility] [address] [place], [address] Eosinophils/100 WBC (Bld) 2.8 % Normal 0-5 [facility] Comment on above: Performed By: #### L 500.2500, L100.0100 #### [facility] [address] [place], [address] Erythrocyte distribution width (RBC) [Ratio] 18.6 % High 11.6-14.6 [facility] Comment on above: Performed By: #### L 500.2500, L100.0100 #### [facility] [address] [place], [address] Hematocrit (Bld) [Volume fraction] 23.3 % Low 40-54 [facility] Comment on above: Performed By: #### L 500.2500, L100.0100 #### [facility] [address] [place], [address] Hemoglobin (Bld) [Mass/Vol] 7.0 g/dL Low 13.0-16.5 [facility] Comment on above: Performed By: #### L 500.2500, L100.0100 #### [facility] [address] [place], [address] IG% 1.000 High 0.0-0.9 [facility] Comment on above: Result Comment: IG% - Immature Granulocytes (promyelocytes, myelocytes and metamyelocytes) > 1% indicates that a LEFT SHIFT is Present. Performed By: #### L 500.2500, L100.0100 #### [facility] [address] [place], [address] Lymphocytes/100 WBC (Bld) 14.4 % Low 19-41 [facility] Comment on above: Performed By: #### L 500.2500, L100.0100 #### [facility] [address] [place], [address] MCH (RBC) [Entitic mass] 25.7 pg Low 27.0-32.0 [facility] Comment on above: Performed By: #### L 500.2500, L100.0100 #### [facility] [address] [place], [address] MCHC (RBC) [Mass/Vol] 30.0 g/dL Low 32-36 [facility] Comment on above: Performed By: #### L 500.2500, L100.0100 #### [facility] [address] [place], [address] MCV (RBC) [Entitic vol] 85.7 fL Normal 80-94 [facility] Comment on above: Performed By: #### L 500.2500, L100.0100 #### [facility] [address] [place], [address] Monocytes/100 WBC (Bld) 9.4 % Normal 0-10 [facility] Comment on above: Performed By: #### L 500.2500, L100.0100 #### [facility] [address] [place], [address] Neutrophils/100 WBC (Bld) 71.8 % High 47-70 [facility] Comment on above: Performed By: #### L 500.2500, L100.0100 #### [facility] [address] [place], [address] Nucleated RBC (Bld) [#/Vol] 0 10*3/uL Normal 0-5 [facility] Comment on above: Performed By: #### L 500.2500, L100.0100 #### [facility] [address] [place], [address] Platelet mean volume (Bld) [Entitic vol] 10.8 fL Normal 6.2-12.0 [facility] Comment on above: Performed By: #### L 500.2500, L100.0100 #### [facility] [address] [place], [address] Platelets (Bld) [#/Vol] 204 10*3/uL Normal 150-450 [facility] Comment on above: Performed By: #### L 500.2500, L100.0100 #### [facility] [address] [place], [address] RBC (Bld) [#/Vol] 2.72 10*6/uL Low 4.6-6.2 [facility] Comment on above: Performed By: #### L 500.2500, L100.0100 #### [facility] [address] [place], [address] RDW SD 57.4 fl High 35.1-43.9 [facility] Comment on above: Performed By: #### L 500.2500, L100.0100 #### [facility] [address] [place], [address] WBC (Bld) [#/Vol] 9.4 10*3/uL Normal 4.4-11.[address] [facility] Comment on above: Performed By: #### L 500.2500, L100.0100 #### [facility] [address] [place], [address] Consultation - Infectious Dx on 09-08-2025 Consultation - Infectious Dx [facility] Medical Records Department [address] [place] [address] Consultation - Infectious Dx 09/08/25 1416 MR#: [id number] Acct: [id number] Name: GURINDER HAHN Rep #: [id number] : 1975 50 From: Milvia Bernard MD PCP: PRAFUL Dai Status:ADM IN Location: [place] [id number] Assessment Plan Assessment/Plan (1) End stage renal disease on dialysis: (2) Central line infection: PLAN: Bcx pending, recommend gen surgery consult for line removal. Will cover with vanc/cefepime for now. Will follow, thank you, d/w Dr. Franklin HPI Consult Data Date of Consult: 09/08/25 HPI Narrative Reason for Consultation: line infection HPI Narrative: GURINDER HAHN, is a 50 M with ESRD, presented with several days weakness, swelling at R chest permacath. Line in place for 3-4 months. Some tenderness at site, drainage reported. No fever or chills. No dysuria, no abd pain. Admitted here on vanc/levaquin, feeling about the same. Full ROS performed and neg except as noted above. [facility] Medical History Anemia, unspecified Acute kidney failure, unspecified Obstructive and reflux uropathy, unspecified Polyneuropathy, unspecified Claire gangrene Debility Type 2 diabetes mellitus Decubitus ulcer of right buttock, stage 4 Home Medications ???Medication ???Instructions ???Recorded ???Last Taken ???Type apixaban 5 mg tablet (Eliquis) 5 mg PO BID 06/05/24 09/07/25 Hist ory bumetanide 1 mg tablet 1 mg PO BID 06/05/24 Unknown Histo ry gabapentin 300 mg capsule 300 mg PO DAILY 06/05/24 Unknown H istory glimepiride 4 mg tablet 8 mg PO DAILY 06/05/24 Unknown His tory insulin glargine 100 unit/mL (3 30 unit subcut QHS 06/05/24 Unknow n History mL) subcutaneous pen (Lantus Solostar U-100 Insulin) insulin lispro 100 unit/mL 1 sliding scale dose subcut TID DM 06/05/24 Unknown History subcutaneous pen (Humalog KwikPen (U-100) Insulin) metoprolol succinate 100 mg 100 mg PO BID 06/05/24 Unknown His tory tablet,extended release 24 hr omeprazole 40 mg capsule,delayed 40 mg PO BID 06/05/24 Unknown Hist ory release rosuvastatin 10 mg tablet 10 mg PO DAILY 06/05/24 Unknown Hi story acetaminophen 325 mg tablet 650 mg PO Q8H PRN pain 06/18/24 Un known History sodium hypochlorite 0.25 % 1 applic topical BID 06/18/24 Unkn own History solution (Dakin's Solution) Allergy/AdvReac Type Severity Reaction Status Date / Time ampicillin Allergy Unknown PT UNABLE Verified 09/07/25 19:54 TO RESPOND-NEEDS F/U Penicillins Allergy Unknown PT UNABLE Verified 09/07/25 19:54 TO RESPOND-NEEDS F/U lisinopril AdvReac Mild nausea Verified 09/07/25 19:54 Family History no significant family his Social History Smoking Status: Current some day smoker tobacco type: cigarettes Physical Exam Const alert, oriented x3 and no apparent distress General Appearance: cooperative HEENT normocephalic and head/scalp atraumatic Eyes PERRL and EOMs intact bilaterally Neck supple and No nodes Resp normal air movement and clear to auscultation bilaterally Cardio regular rate, regular rhythm and no murmurs GI soft to palpation, non-tender and non-distended Extremity General Extremity: edema Skin Skin Narrative: R chest permacath swelling, redness, tenderness Neuro CN's II-XII intact bilaterally Lab / Micro Data Attestation: I reviewed the patient's lab results. 09/08/25 04:54 09/08/25 04:54 Labs: Laboratory Results - last 24 hr 09/07/25 21:15: WBC 11.9 H, RBC 3.24 L, Hgb 8.4 L, Hct 27.4 L, MCV 84.6, MCH 25.9 L, MCHC 30.7 L, R DW Std Deviation 56.9 H, RDW Coeff of Adolfo 18.6 H, Plt Count 241, MPV 10.5, Immature Gran % (Auto) 1.200 H, Neut % (Auto) 72.3 H, Lymph % (Auto) 13.6 L, Posey % (Auto) 7.9, Eos % (Auto) 4.2, Baso % (Auto) 0.8, Absolute Neuts (auto) 8.6 H, Absolute Lymphs (auto) 1.62, Nucleated RBC % 0, Sodium 133, Potassium 6.7 H*, Chloride 97 L, Carbon Dioxide 18.0 L, Anion Gap 17 H, BUN 60 H, Creatinine 8.79 H* , Estim Creat Clear Calc 15.21 L, Est GFR (MDRD) Non-Af 7 L, BUN/Creatinine Ratio 6.8 L, Glucose 348 H, Calcium 8.6 09/07/25 22:51: POC Glucose 287 H 09/08/25 00:39: POC Glucose 295 H 09/08/25 04:54: WBC 9.4, RBC 2.72 L, Hgb 7.0 L, Hct 23.3 L, MCV 85.7, MCH 25.7 L, MCHC 30.0 L, RDW Std Deviation 57.4 H, RDW Coeff of Adolfo 18.6 H, Plt Count 204, MPV 10.8, Immature Gran % (Auto) 1.000 H, Neut % (Auto) 71.8 H, Lymph % (Auto) 14.4 L, Posey % (Auto) 9.4, Eos % (Auto) 2.8, Baso % (Auto) 0.6, Absolute Neuts (auto) 6.8, Absolute Lymphs (auto) 1.36, Nucleated RBC % 0, Sodium 135, P otassium 5.8 H, Chloride 100, Carbon Dioxide 17.1 L, Anion Gap 18 H, BUN 65 H, Creatinine (more content not included)... Normal [facility] Consultation - Nephrologyon 09-08-2025 Consultation - Nephrology [facility] Medical Records Department [address] [place] [address] Consultation - Nephrology 09/08/25 1726 MR#: [id number] Acct: [id number] Name: GURINDER HAHN Rep #: [id number] : 1975 50 From: Christine Paige MD PCP: PRAFUL Dai Status:ADM IN Location: [place] [id number] Assessment Plan Assessment/Plan (1) End stage renal disease on dialysis: PLAN: ESRD, on hemodialysis Sunday, Sunday, Sunday. Apparently missed dialysis for about a week. Hyperkalemia in the setting of renal failure, missed dialysis Dialysis today. Initially there was some erythema noted around exit site. While dialysis staff was attempting to access the catheter, there was some purulent discharge noted. He did have mild elevation in WBC count. Local and blood cultures have been sent in dialysis. At a minimum he likely has exit site infection with or without bacteremia. Discussed with hospitalist. Will place ID consult for further evaluation. HPI Consult Data Date of Consult: 09/08/25 HPI Narrative Reason for Consultation: ESRD HPI Narrative: GURINDER HAHN, is a 50 M who presents To the hospital with generalized weakness, swelling. Apparently did not have dialysis for a week. History of ESRD, on dialysis Sunday, Sunday, Sunday. He goes to [facility] here in [facility]. Primary statement clerk is Dr. Gutierres. Last dialysis apparently is about a week ago. Presented with above complaints, found to have severe hyperkalemia which was medically treated. Potassium is better this morning, still on the higher side. Looks comfortable otherwise. Has a right IJ tunneled dialysis catheter. Apparently he takes a shower with the catheter even though instructions usually are against this. [facility] Medical History Anemia, unspecified Acute kidney failure, unspecified Obstructive and reflux uropathy, unspecified Polyneuropathy, unspecified Claire gangrene Debility Type 2 diabetes mellitus Decubitus ulcer of right buttock, stage 4 Home Medications ???Medication ???Instructions ???Recorded ???Last Taken ???Type apixaban 5 mg tablet (Eliquis) 5 mg PO BID blood thinner 06/05/24 09/07/25 History gabapentin 300 mg capsule 300 mg PO QHS leg pain 06/05/24 Un known History glimepiride 4 mg tablet 8 mg PO DAILY diabetes 06/05/24 Un known History insulin glargine 100 unit/mL (3 30 unit subcut QHS diabetes Unknown History mL) subcutaneous pen (Lantus Solostar U-100 Insulin) insulin lispro 100 unit/mL 1 sliding scale dose subcut TID DM 06/05/24 Unknown History subcutaneous pen (Humalog KwikPen (U-100) Insulin) omeprazole 40 mg capsule,delayed 40 mg PO BID gerd 06/05/24 Unknown History release rosuvastatin 10 mg tablet 10 mg PO DAILY cholesterol 4 Unknown History acetaminophen 325 mg tablet 650 mg PO Q8H PRN pain 06/18/24 Un known History calcium acetate(phosphat bind) 667 1,334 mg PO TID dialysis patient 09/08/25 Unknown History mg capsule hydralazine 50 mg tablet 50 mg PO TID blood pressure Unknown History melatonin 3 mg tablet 3 mg PO QHS sleep 09/08/25 Unknown History metoprolol succinate 25 mg 25 mg PO DAILY heart 09/08/25 Unkn own History tablet,extended release 24 hr Allergy/AdvReac Type Severity Reaction Status Date / Time ampicillin Allergy Unknown PT UNABLE Verified 09/07/25 19:54 TO RESPOND-NEEDS F/U Penicillins Allergy Unknown PT UNABLE Verified 09/07/25 19:54 TO RESPOND-NEEDS F/U lisinopril AdvReac Mild nausea Verified 09/07/25 19:54 Family History no significant family his Social History Smoking Status: Current some day smoker tobacco type: cigarettes ROS ROS Narrative negative except above Physical Exam Narrative Alert awake oriented x 3 no obvious distress no pallor no icterus no JVD s1s2 no murmurs lungs clear Lab / Micro Data 09/08/25 04:54 09/08/25 04:54 Labs: Laboratory Results - last 24 hr 09/07/25 21:15: WBC 11.9 H, RBC 3.24 L, Hgb 8.4 L, Hct 27.4 L, MCV 84.6, MCH 25.9 L, MCHC 30.7 L, R DW Std Deviation 56.9 H, RDW Coeff of Adolfo 18.6 H, Plt Count 241, MPV 10.5, Immature Gran % (Auto) 1.200 H, Neut % (Auto) 72.3 H, Lymph % (Auto) 13.6 L, Posey % (Auto) 7.9, Eos % (Auto) 4.2, Baso % (Auto) 0.8, Absolute Neuts (auto) 8.6 H, Absolute Lymphs (auto) 1.62, Nucleated RBC % 0, Sodium 133, Potassium 6.7 H*, Chloride 97 L, Carbon Dioxide 18.0 L, Anion Gap 17 H, BUN 60 H, Creatinine 8.79 H* , Estim Creat Clear Calc 15.21 L, Est GFR (MDRD) Non-Af 7 L, BUN/Creatinine Ratio 6.8 L, Glucose 348 H, Calcium 8.6 09/07/25 22:51: POC Glucose 287 H 09/08/25 00:39: POC Glucose 295 H 09/08/25 04:54: WBC 9.4, RBC 2.72 L, Hgb 7.0 L, (more content not included)... Normal [facility] Consultation - Surgicalon Consultation - Surgical [facility] Medical Records Department [address] [place] [id number] Consultation - Surgical 09/08/25 1509 MR#: [id number] Acct: [id number] Name: GURINDER HAHN Rep #: [id number] : 1975 50 From: Ledy BORREGO PA-C PCP: PRAFUL Dai Status:ADM IN [facility] ADDENDUM by MORENA Hernández on 09/08/25 at 1534 Visit Charges Inpatient E M: [id number] Init Hosp L2 09/08/25 1534 Cosigner Signature (if applicable): cc: PRAFUL Adam * Signed Assessment Plan Assessment/Plan (1) Central line infection: QUALIFIERS: Encounter type: initial encounter Qualified Code(s): T80.219A - Unspecified infection due to central venous catheter, initial encounter PLAN: I have been consulted in conjunction with Dr. Dee. She will independently evaluate this patient. Patient is a 50 y/o M I am seeing for an infected right chest tunneled dialysis catheter. Patient has completed dialysis treatment today. He was unfortunately given his daily Eliquis today. Eliquis will need to be held. We will plan to likely remove the dialysis catheter at bedside tomorrow or possibly . Would plan for a line holiday and negative blood cultures prior to replacing the catheter in the left chest. Continue IV antibiotics. Patient has had the opportunity to ask and have questions answered. Patient verbally understands and agrees with the plan. Thank you for allowing us to participate in this patient's care. HPI Consult Data Date of Consult: 09/08/25 HPI Narrative Reason for Consultation: Infected tunneled dialysis catheter HPI Narrative: GURINDER HAHN, is a 50 M who presents with a main complaint of leg weakness and hyperkalemia. Patient states he had a right chest tunneled dialysis catheter placed at [facility] approximately 3-4 months ago. He notes going to dialysis on , and at [facility]. It was reported the patient has not been at dialysis in 1 week. He states he noted soreness at his catheter site last night otherwise he has had no issues. He notes he has an appointment scheduled with vascular surgery on 10/06 to discuss fistula creation. Patient denies having a dialysis catheter previously. 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 He was in ICU for 1 month at [facility]. Patient is currently on Eliquis for A Fib. He notes not covering the tunneled catheter when he showers. Blood cultures pending. Microbiology pending from dialysis catheter culture. Creatinine 9.46 today. Hgb 7.0. [facility] Medical History Anemia, unspecified Acute kidney failure, unspecified Obstructive and reflux uropathy, unspecified Polyneuropathy, unspecified Claire gangrene Debility Type 2 diabetes mellitus Decubitus ulcer of right buttock, stage 4 Home Medications ???Medication ???Instructions ???Recorded ???Last Taken ???Type apixaban 5 mg tablet (Eliquis) 5 mg PO BID 06/05/24 09/07/25 Hist ory bumetanide 1 mg tablet 1 mg PO BID 06/05/24 Unknown Histo ry gabapentin 300 mg capsule 300 mg PO DAILY 06/05/24 Unknown H istory glimepiride 4 mg tablet 8 mg PO DAILY 06/05/24 Unknown His tory insulin glargine 100 unit/mL (3 30 unit subcut QHS 06/05/24 Unknow n History mL) subcutaneous pen (Lantus Solostar U-100 Insulin) insulin lispro 100 unit/mL 1 sliding scale dose subcut TID DM 06/05/24 Unknown History subcutaneous pen (Humalog KwikPen (U-100) Insulin) metoprolol succinate 100 mg 100 mg PO BID 06/05/24 Unknown His tory tablet,extended release 24 hr omeprazole 40 mg capsule,delayed 40 mg PO BID 06/05/24 Unknown Hist ory release rosuvastatin 10 mg tablet 10 mg PO DAILY 06/05/24 Unknown Hi story acetaminophen 325 mg tablet 650 mg PO Q8H PRN pain 06/18/24 Un known History sodium hypochlorite 0.25 % 1 applic topical BID 06/18/24 Unkn own History solution (Dakin's Solution) Allergy/AdvReac Type Severity Reaction Status Date / Time ampicillin Allergy Unknown PT UNABLE Verified 09/07/25 19:54 TO RESPOND-NEEDS F/U Penicillins Allergy Unknown PT UNABLE Verified 09/07/25 19:54 TO RESPOND-NEEDS F/U lisinopril AdvReac Mild nausea Verified 09/07/25 19:54 Family History no significant family his Social History Smoking Status: Current some day smoker tobacco type: cigarettes ROS Constitutional Constitutional: Reports systems reviewed and no addt'l complaints, except as documented Eyes Eyes: Reports systems reviewed and no addt'l complaints, except as documented ENT HEENT: Reports systems reviewed and no addt'l complaints, except as documented Cardiovascular Cardiovascular: Reports systems reviewed (more content not included)... Normal [facility] Gram Stainon 09-08-2025 List Antibiotics Las t 48 Hours? no exudate from around dialysis cath insertion site Gram Stain 1+ Gram positive cocci 1+ Gram positive rods 1+ White Blood Cells Normal [facility] Comment on above: Performed By: #### L 500.2500, L100.0100 #### [facility] Laboratory [address] [place], [address] Hemoglobin A1con 09-08-2025 HbA1c (Bld) [Mass fraction] 12.2 % High <=5.6 [facility] Comment on above: Result Comment: Norm al < 5.7 % Prediabetic 5.7 - 6.4 % Diabetic >or= 6.5 % Please note range changes. Performed By: #### L 500.2500, L100.0100 #### [facility] [address] [place], [address] 12 Lead EKGon 09-07-2025 12 Lead EKG [facility] Cardiovascular Services [address] [place] [address] 12 Lead EKG 09/07/25 2255 MR#: [id number] Acct: [id number] Name: GURINDER HAHN Rep #: [id number] : 1975 50 From: Tuyet Andrade MD Attending Dr: Dr. Kurt Franklin MD Status: ADM IN Ordering Dr: Daniel Heller MD Date: 09/07/25 Location: U Sex: M C Admitted: 09/07/25 Test Reason : DYSRHYTHMIA Blood Pressure : */* mmHG Vent. Rate : 107 BPM Atrial Rate : 107 BPM P-R Int : 172 ms QRS Dur : 160 ms QT Int : 382 ms P-R-T Axes : 48 45 16 degrees QTcB Int : 509 ms Sinus tachycardia Right bundle branch block can not rule out septal [place] Abnormal ECG Confirmed by Tueyt Andrade ([id number]), editor in chief newspaper HOMAR GRIJALVA ([id number]) on 09/08/2025 11:14:52 AM Referred By: Confirmed By: Tuyet Andrade 09/08/25 1114 Date Tuyet Andrade MD CC: PRAFUL Adam; Dr. Daniel Heller MD; Dr. Kurt Franklin MD Signed [facility] 12 Lead EKG [facility] Cardiovascular Services [address] [place] [address] 12 Lead EKG 09/07/252117 MR#: [id number] Acct: [id number] Name: GURINDER HAHN Rep #: [id number] : 1975 50 From: Tuyet Andrade MD Attending Dr: Dr. Kurt Franklin MD Status: ADM IN Ordering Dr: Daniel Heller MD Date: 09/07/25 Location: [facility] Sex: M C Admitted: 09/07/25 Test Reason : DYSRHYTHMIA Blood Pressure : */* mmHG Vent. Rate : 97 BPM Atrial Rate : 97 BPM P-R Int : 188 ms QRS Dur : 176 ms QT Int : 416 ms P-R-T Axes : 59 46 38 degrees QTcB Int : 528 ms Normal sinus rhythm Right bundle branch block Abnormal ECG Confirmed by Tuyet Andrade ([id number]), editor in chief newspaper HOMAR GRIJALVA ([id number]) on 09/08/2025 11:14:22 AM Referred By: Confirmed By: Tuyet Andrade 09/08/25 1114 Date Tuyet Andrade MD CC: PRAFUL Adam; Dr. Daniel Heller MD; Dr. Kurt Franklin MD Signed [facility] 36on 09-07-2025 36 noted Normal [facility] Basic Metabolic Profile (BMP )on 09-07-2025 BUN/CRE 6.8 RATIO Low 09-07 [facility] Comment on above: Performed By: #### L 500.2500, L100.0100 #### [facility] [address] [place], [address] Calcium [Mass/Vol] 8.6 mg/dL Normal 7.6-11.[address] [facility] Comment on above: Performed By: #### L 500.2500, L100.0100 #### [facility] [address] [place], [address] Chloride [Moles/Vol] 97 mmol/L Low 98-108 [facility] Comment on above: Performed By: #### L 500.2500, L100.0100 #### [facility] [address] [place], [address] CO2 [Moles/Vol] 18.0 mmol/L Low 21.0-32.0 [facility] Comment on above: Performed By: #### L 500.2500, L100.0100 #### [facility] [address] [place], [address] Creatinine [Mass/Vol] 8.79 mg/dL Invalid Interpretation Code 0.70-1.20 [facility] Comment on above: Result Comment: Crit ical Result(s) Called MMARTIN at: 2153 by: MAGGY??Results read back by same. Performed By: #### L 500.2500, L100.0100 #### [facility] [address] [place], [address] ECRCL 15.21 ml/min Low 50-250 [facility] Comment on above: Performed By: #### L 500.2500, L100.0100 #### [facility] [address] [place], [address] GAP 17 High 5-15 [facility] Comment on above: Performed By: #### L 500.2500, L100.0100 #### [facility] [address] [place], [address] GFR/1.73 sq M.predicted among non-blacks MDRD (S/P/Bld) [Vol rate/Area] 7 mL/min/{1.73_m2} Low >60 [facility] Comment on above: Result Comment: mL/m in/1.73m2 CKD-EPI Creatinine Equation (2020) Performed By: #### L 500.2500, L100.0100 #### [facility] [address] [place], [address] Glucose [Mass/Vol] 348 mg/dL High 70-[address] [facility] Comment on above: Performed By: #### L 500.2500, L100.0100 #### [facility] [address] [place], [address] Potassium [Moles/Vol] 6.7 mmol/L Invalid Interpretation Code 3.3-5.1 [facility] Comment on above: Result Comment: Crit ical Result(s) Called MMARTIN at: 2153 by: MAGGY??Results read back by same. Performed By: #### L 500.2500, L100.0100 #### [facility] [address] [place], [address] Sodium [Moles/Vol] 133 mmol/L Normal 133-[address] [facility] Comment on above: Performed By: #### L 500.2500, L100.0100 #### [facility] [address] [place], [address] Urea nitrogen [Mass/Vol] 60 mg/dL High 4-19 [facility] Comment on above: Performed By: #### L 500.2500, L100.0100 #### [facility] [address] [place], [address] Bedside Glucoseon 09-07-2024 FINGERSTICK GLU 287 mg/dL High 74-106 [facility] Comment on above: Result Comment: EDVIN YEN OF PATIENT CARE PER NURSING PROTOCOL Performed By: #### L 501.080 #### [facility] [address] [place], [address] CBC W/Diff, Automatedon 10-2 0-2024 Absolute Lymph 1.62 X10 3/uL Normal 0.83-4.51 [facility] Comment on above: Performed By: #### L 500.2500, L100.0100 #### [facility] [address] [place], [address] Absolute Neut 8.6 X10 3/uL High 2.0-7.7 [facility] Comment on above: Performed By: #### L 500.2500, L100.0100 #### [facility] [address] [place], [address] Basophils/100 WBC (Bld) 0.8 % Normal 0-1 [facility] Comment on above: Performed By: #### L 500.2500, L100.0100 #### [facility] [address] [place], [address] Eosinophils/100 WBC (Bld) 4.2 % Normal 0-5 [facility] Comment on above: Performed By: #### L 500.2500, L100.0100 #### [facility] [address] [place], [address] Erythrocyte distribution width (RBC) [Ratio] 18.6 % High 11.6-14.6 [facility] Comment on above: Performed By: #### L 500.2500, L100.0100 #### [facility] [address] [place], [address] Hematocrit (Bld) [Volume fraction] 27.4 % Low 40-54 [facility] Comment on above: Performed By: #### L 500.2500, L100.0100 #### [facility] [address] [place], [address] Hemoglobin (Bld) [Mass/Vol] 8.4 g/dL Low 13.0-16.5 [facility] Comment on above: Performed By: #### L 500.2500, L100.0100 #### [facility] [address] [place], [address] IG% 1.200 High 0.0-0.9 [facility] Comment on above: Result Comment: IG% - Immature Granulocytes (promyelocytes, myelocytes and metamyelocytes) > 1% indicates that a LEFT SHIFT is Present. Performed By: #### L 500.2500, L100.0100 #### [facility] [address] [place], [address] Lymphocytes/100 WBC (Bld) 13.6 % Low 19-41 [facility] Comment on above: Performed By: #### L 500.2500, L100.0100 #### [facility] [address] [place], [address] MCH (RBC) [Entitic mass] 25.9 pg Low 27.0-32.0 [facility] Comment on above: Performed By: #### L 500.2500, L100.0100 #### [facility] [address] [place], [address] MCHC (RBC) [Mass/Vol] 30.7 g/dL Low 32-36 [facility] Comment on above: Performed By: #### L 500.2500, L100.0100 #### [facility] [address] [place], [address] MCV (RBC) [Entitic vol] 84.6 fL Normal 80-94 [facility] Comment on above: Performed By: #### L 500.2500, L100.0100 #### [facility] [address] [place], [address] Monocytes/100 WBC (Bld) 7.9 % Normal 0-10 [facility] Comment on above: Performed By: #### L 500.2500, L100.0100 #### [facility] [address] [place], [address] Neutrophils/100 WBC (Bld) 72.3 % High 47-70 [facility] Comment on above: Performed By: #### L 500.2500, L100.0100 #### [facility] [address] [place], [address] Nucleated RBC (Bld) [#/Vol] 0 10*3/uL Normal 0-5 [facility] Comment on above: Performed By: #### L 500.2500, L100.0100 #### [facility] [address] [place], [address] Platelet mean volume (Bld) [Entitic vol] 10.5 fL Normal 6.2-12.0 [facility] Comment on above: Performed By: #### L 500.2500, L100.0100 #### [facility] [address] [place], [address] Platelets (Bld) [#/Vol] 241 10*3/uL Normal 150-450 [facility] Comment on above: Performed By: #### L 500.2500, L100.0100 #### [facility] [address] [place], [address] RBC (Bld) [#/Vol] 3.24 10*6/uL Low 4.6-6.2 [facility] Comment on above: Performed By: #### L 500.2500, L100.0100 #### [facility] [address] [place], [address] RDW SD 56.9 fl High 35.1-43.9 [facility] Comment on above: Performed By: #### L 500.2500, L100.0100 #### [facility] [address] [place], [address] WBC (Bld) [#/Vol] 11.9 10*3/uL High 4.4-11.0 [facility] Comment on above: Performed By: #### L 500.2500, L100.0100 #### [facility] [address] [place], [address] Chest PA and Lateralon 09-07 Chest PA and Lateral [facility] Imaging Services [address] [place] [address] Chest PA and Lateral MR#: [id number] Acct: [id number] Name: GURINDER HAHN Rep #: [id number] : 1975 M 50 From: Emanuel Alcantara MD PCP: PRAFUL Dai Status: REG ER Study: Chest PA and Lateral Date of Exam: 09/07/25 Exam# [id number] Ordering Dr: Daniel Heller MD PROCEDURE: CHEST PA AND LATERAL 09/07/2025 REASON FOR EXAM: WEAKNESS TECHNIQUE: Procedure Code: RADCXR Modality: DX Procedure: CHEST PA AND LATERAL FINDINGS: The heart is enlarged. The lungs are clear. Right chest infusion port with tip terminating in the lower superior vena cava. No acute osseous abnormalities. RAD/Chest PA and Lateral IMPRESSION: NO ACUTE FINDINGS. Reading Location: [address] CC: [employer]-C Phoebe Adam; Dr. Daniel Heller MD Mica Patcher: Signed Normal [facility] Emergency Department Summary on 09-07-2025 Emergency Department Summary [facility] Medical Records Department [address] [place] [address] Emergency Department Summary 09/07/25 MR#: [id number] Acct: [id number] Name: GURINDER HAHN Rep #: [id number] : 1975 50 From: Daniel Heller MD PCP: PRAFUL Dai Status:ADM IN Location: [place] [address] HPI History of Present Illness Chief Complaint: Weakness Informant: patient Onset/Context/Timing Onset: Days Context: Gradual Onset Timing: Continuous Current Severity: Moderate Maximum Severity: Moderate Narrative Narrative: 50-year-old male history of diabetes, A-fib on Eliquis, chronic kidney disease and anemia. Typically has dialysis Sunday missed dialysis today and all last week his last dialysis was Sunday more than a week ago. Basically just feels weak all over. Mild nausea no vomiting no diarrhea or fever. No chest pain or headache. No abdominal pain. He has been on dialysis less than 1 year. Prior similar symptoms: Yes Recent Ill[facility] Medical History Anemia, unspecified Acute kidney failure, unspecified Obstructive and reflux uropathy, unspecified Polyneuropathy, unspecified Claire gangrene Debility Type 2 diabetes mellitus Decubitus ulcer of right buttock, stage 4 Home Medications ???Medication ???Instructions ???Recorded ???Last Taken ???Type apixaban 5 mg tablet (Eliquis) 5 mg PO BID 06/05/24 Unknown Histo ry bumetanide 1 mg tablet 1 mg PO BID 06/05/24 Unknown Histo ry gabapentin 300 mg capsule 300 mg PO DAILY 06/05/24 Unknown H istory glimepiride 4 mg tablet 8 mg PO DAILY 06/05/24 Unknown His tory insulin glargine 100 unit/mL (3 30 unit subcut QHS 06/05/24 Unknow n History mL) subcutaneous pen (Lantus Solostar U-100 Insulin) insulin lispro 100 unit/mL 1 sliding scale dose subcut TID DM 06/05/24 Unknown History subcutaneous pen (Humalog KwikPen (U-100) Insulin) lidocaine 4 % topical patch 1 patch topical Q24H 06/05/24 Unkn own History (Lidocore) metoprolol succinate 100 mg 100 mg PO BID 06/05/24 Unknown His tory tablet,extended release 24 hr omeprazole 40 mg capsule,delayed 40 mg PO BID 06/05/24 Unknown Hist ory release rosuvastatin 10 mg tablet 10 mg PO DAILY 06/05/24 Unknown Hi story acetaminophen 325 mg tablet 650 mg PO Q8H PRN pain 06/18/24 Un known History cholecalciferol (vitamin D3) 1,250 1,250 mcg PO QWEEK 06/18/24 Unkn own History mcg (50,000 unit) capsule ferrous sulfate 325 mg (65 mg 325 mg PO DAILY 06/18/24 Unknown H istory iron) tablet (FeroSul) meclizine 25 mg tablet (Dramamine 25 mg PO Q8H PRN dizziness Unknown History Less Drowsy) ondansetron HCl 4 mg tablet 4 mg PO Q6H PRN nausea and vomitin g 06/18/24 Unknown History oxycodone 5 mg tablet 5 mg PO Q6H PRN pain 06/18/24 Unkn own History scopolamine base 1 mg over 3 days 1 patch topical Q3D 06/18/24 Unkn own History transdermal patch simethicone 180 mg capsule 180 mg PO BID 06/18/24 Unknown His tory (Anti-Gas Ultra Strength) sodium hypochlorite 0.25 % 1 applic topical BID 06/18/24 Unkn own History solution (Dakin's Solution) Allergy/AdvReac Type Severity Reaction Status Date / Time ampicillin Allergy Unknown PT UNABLE Verified 09/07/25 19:54 TO RESPOND-NEEDS F/U Penicillins Allergy Unknown PT UNABLE Verified 09/07/25 19:54 TO RESPOND-NEEDS F/U lisinopril AdvReac Mild nausea Verified 09/07/25 19:54 Family History no significant family his Social History Smoking Status: Current some day smoker tobacco type: cigarettes ROS ROS ED ROS Narrative Generalized weakness. Constitutional Constitutional ED: Denies chills or fever(s) Eyes Eyes: Denies blurry vision ENT ENT ED: Denies ear pain Cardiovascular Cardiovascular: Denies chest pain Respiratory/Chest Respiratory/Chest: Denies cough or dyspnea Gastrointestinal Gastrointestinal: Denies abdominal pain, constipation, diarrhea, melena, nausea or vomiting Genitourinary Genitourinary ED: Denies dysuria or hematuria Musculoskeletal Musculoskeletal: Denies arthralgias or back pain Integumentary Denies abscess Neurologic Neurologic: Denies headache(s) Psychiatric Psychiatric: Denies anxiety or depression Endocrine Endocrinology: Denies cold intolerance Hematologic/Lymphatic Hematologic/Lymphatic: Reports none Allergic/Immunologic Allergic/Immunologic ED: Denies mouth swelling, tongue swelling or urticaria EXAM Physical Exam Narrative Exam Narrative: 50-year-old male sitting upright in bed vital signs stable initial blood pressure is elevated 186/166 to be rechecked. He is in no acute distress. Puls (more content not included)... Normal [facility] [id number] 09-04-2025 [id number] Order placed for a r enal function panel. Normal [facility] Dialysis Vein Map PRE-OP SULAIMAN ATon 08-27-2025 Dialysis Vein Map PRE-OP BILAT [facility] Cardiovascular Services [address] [place] [address] Dialysis Vein Map PRE-OP BILAT 08/27/25 0959 MR#: [id number] Acct: [id number] Name: GURINDER HAHN Rep #: [id number] : 1975 50 From: Madan Charles MD Attending Dr: Dr. Barby Webster MD Status: RE G CLI Ordering Dr: Barby Webster MD Date: 08/27/25 Location: [facility] Sex: M C Admitted: Reason [...] 08/27/25 1418 Date Madan Charles MD CC: [employer]-C Phoebe Adam; Dr. Barby Webster MD Date Dictated: 08/27/25958 Date Transcribed: 08/27/251417 Mica Patcher: Signed Normal [facility] [facility] 08-13-2025 36 S: Patient spoke wit h CAC [...] performed with Mike Olivera NP - per [employer] patient can be seen in office on [...] 1 hour Protocols used: Leg Swelling and Swwgy-[id number]-MJ [place] [address]on 07-13-2025 36 Reviewed chart. Refi ll not appropriate, too soon. RX refused [place] [address] Reviewed chart. Refi ll not appropriate, too soon. RX refused [place] [phone] Sent 02/17/25 90 and 1 refill Pt should still have 30 days of medication left Please refuse mediction [place] [phone] Acetaminophen sent i n 07/09/25 60 tablets 3 refills Hysralazine sent 06/16/25 270 tablets Please refuse both meds [address] 07-09-2025 36 Prescription Request : Last medication check: 06/16/25 Last physical exam: 2020 Next scheduled appointment: 09/15/25 Last date of refill on this medication 06/12/25 60 tablets no refill [place] [address]on 06-18-2025 36 Spoke with pharmacy Please send in new RX for the Quik Pen. Pended new rx please verify correct order/dose. Also pended pen tips. [place] [id number] 36 The pen [place] [address] Name of caller: DINA Contact phone number: [phone] Relationship to Patient: Pharmacy Provider: Practice: [facility] [...] business hours to return their call: no [place] [address]on 06-16-2025 37 We can make adjustme nts to insulin every 3 days. Please send in fasting and 2 hour post meal glucose readings every 3 days. [facility] Office Visiton 06-16-2025 Follow-up visit [id number] Gurinder Hahn 1975 M Date Provider Department [place] 06/16/2025 [id number] SHREYA [facility] [place] PAZNATHALY [facility] Family History Adopted: Yes Problem Relation Age of Onset No Known Problems Mother High Blood Pressure Father Heart disease Father COPD Father Diabetes Father Family Status - Relation Status Age at Mother Father Level of Service:68748 [place] OFFICE/OUTPATIENT ESTABLISHED MOD MDM 30 MIN Reason for Visit and Comments: Diabetes [34] Normal [facility] Progress Noteon 06-16-2025 Progress Note Recommend continue t o monitor. Warm compresses couple times a day to promote drainage. Advised to follow-up if increased swelling or redness or pain occurs. Normal [facility] Progress Note Poorly controlled. C heck hemoglobin A1c today. Restart Lantus at 10 units daily, Humalog 5 units with meals 3 times a day. Send glucose readings every 3 days for titration of insulin Normal [facility] Progress Note Stable. Restart metoprolol XL at 25 mg daily [facility] Progress Note Managed by nephrology. [facility] Progress Note Control unknown. Rashmi ck hemoglobin A1c. Normal [facility] Progress Note Initial elevated. Re sume hydralazine 50 mg 3 times daily, metoprolol 25 mg XL daily. Hold hydralazine on days of dialysis [facility] Progress Note Continue fenofibrate 145 mg daily, rosuvastatin 10 mg daily. Normal [facility] Progress Note Restart mack Blackburn back on the metoprolol XR at 25 mg daily [facility] Progress Note 06/16/2025 Gurinder Hahn (: 1975) is a 50 y.o. male , Established patient, here for evaluation of the following chief complaint(s): Diabetes ASSESSMENT/PLAN: 1. Type 2 diabetes mellitus with diabetic polyneuropathy, with long-term current use of insulin ([facility]) Assessment & Plan: Poorly controlled. Check hemoglobin [...] Normal 2. Chronic renal disease, stage IV ([facility]) Assessment & Plan: Managed by nephrology. Orders: - Basic metabolic panel 3. Low hemoglobin - CBC auto differential 4. Cardiomyopathy, unspecified type ([facility]) Assessment & Plan: Stable. Restart metoprolol XL at 25 mg daily Orders: - metoprolol succinate XL (Toprol-XL) 25 MG 24 hr tablet; Take 1 tablet (25 mg) by mouth daily. Do not crush or chew., Starting Sun06/16/2025, Until Sun12/13/2025, Normal - hydrALAZINE (Apresoline) 50 MG tablet; [...] occurs. [facility] 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 Reports his sugars have been in the high 200s and denies any hypoglycemic episodes. It drinking more water and trying to watch what he is eating. M,W,F- dialysis in [place]. Is tired after dialysis Goes Jun 23 [...] Infrared SpO2: 9 (more content not included)... [facility] Progress Note Patient was identifi ed by name and Date of . Health Maintenance Due Topic Echocardiogram- Diabetes: Dental Exam- Diabetes: Retinopathy Screening- [place] [id number] 36 Reviewed chart. Refi ll appropriate. RX sent. [place] [address] Reviewed chart. Refi ll appropriate. RX sent. [place] [phone] Prescription Request : Last medication check: 09/22/24 Last physical exam: 2020 Next scheduled appointment: 06/16/25 Last date of refill on this medication 05/21/25 60 tablets no refills [place] [phone] Prescription Request : Last medication check: 09/22/24 Last physical exam: 2020 Next scheduled appointment: 06/16/25 Last date of refill on this medication 01/29/25 30 tablets [address] 06-10-2025 36 Rx sent for enough tablets to last him until his upcoming appointment on 06/16/25. OARRS report reviewed with no discrepancies. CSA signed September 2024. [address] 06-04-2025 36 Scheduled 06/08/[address] 05-25-2025 36 Unable to fill prescription. This is considered a controlled substance. Patient has not been seen in office since September 2024. Has canceled multiple appointments. Recommend he follow-up as he is scheduled [place] [phone] Prescription Request : Last medication check: 09/22/24 Last physical exam: 01/08/23 Next scheduled appointment: 06/08/25 CSA on file (date): 09/22/24 Last urine drug screen: NA Last date of refill on this medication 04/27/[address] 05-21-2025 36 Reviewed chart. Refi ll appropriate. RX sent. [place] [phone] Prescription Request : Last medication check: 09/22/24 Last physical exam: 01/08/23 Next scheduled appointment: 06/08/25 Last date of refill on this medication 04/16/25 60 tablets no refills [address] 05-04-2025 36 Noted. Thank you. [facility] 36 Luz I just wanted you to be aware of this - Gabapentin refused by Dr Jackson due to pt needs to be seen. LM and sent mychart message to pt to be sure to come in for 05/13/25 appt [place] [address] Lm and sent mychart message that script will not be sent until pt is seen. [address] 04-28-2025 36 Prescription Request : Continuous Glucose Sensor (FreeStyle Yanni 3 Sensor) [facility] Last medication check: none Last physical exam: none Next scheduled appointment: 05/13/25 Last date of refill on this medication 11/10/24 ( qty 2 refill 5) [address] 04-27-2025 36 Already refilled prescription in a separate encounter. [place] [address] Rx sent. OARRS repor t reviewed with no discrepancies. CSA signed in September 2024. Follow up as scheduled. [facility] 36 Prescription Request : GABAPENTIN 300 MG CAPSULE Last medication check: 09/22/24 ? Last physical exam: None Next scheduled appointment: 05/13/25 CSA on file (date): 02/27/25 Last date of refill on this medication 03/26/25 ( qty 30 refill 0) [address] 04-24-2025 36 Rx sent. Follow up a s scheduled. [address] 04-23-2025 36 Refused, needs to be seen [place] [address] Prescription Request : Last medication check: 09/22/24 Last physical exam: 2020 Next scheduled appointment: 05/13/25 CSA on file (date): 09/22/24 Last urine drug screen: none Last date of refill on this medication 03/26/25 30 and no refill [facility] [id number] 04-16-2025 [id number] Pended a Chorhexidin e gluconate dressing [place] [address]on 04-16-2025 36 Rx sent [place] [address] FYI-This is the 2nd mychart message sent. [place] [address] This medication was sent to [facility] 03/16/25 with 5 refills [place] [address] Prescription Request : Last medication check: 09/22/24 Last physical exam: none Next scheduled appointment: 05/13/25 Last date of refill on this medication 02/17/25 60 tablets no refill [address] 04-14-2025 36 Called the patient---informed him [...] be here in order to continue meds. [place] [address] Refused. Needs to be seen. [place] [address] Prescription Request : Last medication check: 09-22-24 Last physical exam: n/a Next scheduled appointment: none The patient has cancelled the last 8 appointments that have been scheduled CSA on file (date): 09-22-24 Last urine drug screen: none Last date of refill on this medication 03-26-[address] 03-26-2025 36 Rx sent, OARRS repor t done, no inconsistencies, CS agreement in place [place] [address] Prescription Request : GABAPENTIN 300 MG CAPSULE Last medication check: 09/22/24 Last physical exam: none Next scheduled appointment: none CSA on file (date): 02/27/25 Last date of refill on this medication 02/27/25 ( qty 30 refill 0) [address] 03-16-2025 36 Rx sent. Follow up a s scheduled. [place] [address] Prescription Request : OMEPRAZOLE DR 40 MG CAPSULE Last medication check: 09/22/24 Last physical exam: none Next scheduled appointment: 03/19/25 ( physical Last date of refill on this medication 12/08/24 ( qty 60 refill 2) Normal [facility] BUNon 03-16-2025 Urea nitrogen [Mass/Vol] 23 mg/dL High 4-19 [facility] Comment on above: Performed By: #### L 501.080 #### [facility] [address] [place], [address] CBC W/Diff, Automatedon 02-18 Absolute Lymph 1.95 X10 3/uL Normal 0.83-4.51 [facility] Comment on above: Performed By: #### L 500.2500, L100.0100 #### [facility] [address] [place], [address] Absolute Neut 7.0 X10 3/uL Normal 2.0-7.7 [facility] Comment on above: Performed By: #### L 500.2500, L100.0100 #### [facility] [address] [place], [address] Basophils/100 WBC (Bld) 0.7 % Normal 0-1 [facility] Comment on above: Performed By: #### L 500.2500, L100.0100 #### [facility] [address] [place], [address] Eosinophils/100 WBC (Bld) 4.9 % Normal 0-5 [facility] Comment on above: Performed By: #### L 500.2500, L100.0100 #### [facility] [address] [place], [address] Erythrocyte distribution width (RBC) [Ratio] 18.7 % High 11.6-14.6 [facility] Comment on above: Performed By: #### L 500.2500, L100.0100 #### [facility] [address] [place], [address] Hematocrit (Bld) [Volume fraction] 29.1 % Low 40-54 [facility] Comment on above: Performed By: #### L 500.2500, L100.0100 #### [facility] [address] [place], [address] Hemoglobin (Bld) [Mass/Vol] 9.0 g/dL Low 13.0-16.5 [facility] Comment on above: Performed By: #### L 500.2500, L100.0100 #### [facility] [address] [place], [address] IG% 1.100 High 0.0-0.9 [facility] Comment on above: Result Comment: IG% - Immature Granulocytes (promyelocytes, myelocytes and metamyelocytes) > 1% indicates that a LEFT SHIFT is Present. Performed By: #### L 500.2500, L100.0100 #### [facility] [address] [place], [address] Lymphocytes/100 WBC (Bld) 18.2 % Low 19-41 [facility] Comment on above: Performed By: #### L 500.2500, L100.0100 #### [facility] [address] [place], [address] MCH (RBC) [Entitic mass] 25.1 pg Low 27.0-32.0 [facility] Comment on above: Performed By: #### L 500.2500, L100.0100 #### [facility] [address] [place], [address] MCHC (RBC) [Mass/Vol] 30.9 g/dL Low 32-36 [facility] Comment on above: Performed By: #### L 500.2500, L100.0100 #### [facility] [address] [place], [address] MCV (RBC) [Entitic vol] 81.3 fL Normal 80-94 [facility] Comment on above: Performed By: #### L 500.2500, L100.0100 #### [facility] [address] [place], [address] Monocytes/100 WBC (Bld) 9.3 % Normal 0-10 [facility] Comment on above: Performed By: #### L 500.2500, L100.0100 #### [facility] [address] [place], [address] Neutrophils/100 WBC (Bld) 65.8 % Normal 47-70 [facility] Comment on above: Performed By: #### L 500.2500, L100.0100 #### [facility] [address] [place], [address] Nucleated RBC (Bld) [#/Vol] 0 10*3/uL Normal 0-5 [facility] Comment on above: Performed By: #### L 500.2500, L100.0100 #### [facility] [address] [place], [address] Platelet mean volume (Bld) [Entitic vol] 10.9 fL Normal 6.2-12.0 [facility] Comment on above: Performed By: #### L 500.2500, L100.0100 #### [facility] [address] [place], [address] Platelets (Bld) [#/Vol] 272 10*3/uL Normal 150-450 [facility] Comment on above: Performed By: #### L 500.2500, L100.0100 #### [facility] [address] [place], [address] RBC (Bld) [#/Vol] 3.58 10*6/uL Low 4.6-6.2 [facility] Comment on above: Performed By: #### L 500.2500, L100.0100 #### [facility] [address] [place], [address] RDW SD 55.2 fl High 35.1-43.9 [facility] Comment on above: Performed By: #### L 500.2500, L100.0100 #### [facility] [address] [place], [address] WBC (Bld) [#/Vol] 10.7 10*3/uL Normal 4.4-11.0 [facility] Comment on above: Performed By: #### L 500.2500, L100.0100 #### [facility] [address] [place] [address] Carbon Dioxideon 03-16-2025 CO2 [Moles/Vol] 23.7 mmol/L Normal 21.0-32.0 [facility] Comment on above: Performed By: #### L 501.080 #### [facility] [address] [place], [address] Chlorideon 03-16-2025 Chloride [Moles/Vol] 98 mmol/L Normal 98-108 [facility] Comment on above: Performed By: #### L 501.080 #### [facility] [address] [place], [address] Phosphoruson 03-16-2025 Phosphate [Mass/Vol] 3.7 mg/dL Normal 2.7-4.5 [facility] Comment on above: Performed By: #### L 501.080 #### [facility] [address] [place], [address] Potassiumon 03-16-2025 Potassium [Moles/Vol] 4.2 mmol/L Normal 3.3-5.1 [facility] Comment on above: Performed By: #### L 501.080 #### [facility] [address] [place], [address] Serum Creatinine AND GFRon 0 03-16-2025 Creatinine [Mass/Vol] 3.25 mg/dL High 0.70-1.20 [facility] Comment on above: Performed By: #### L 501.080 #### [facility] [address] [place], [address] GFR/1.73 sq M.predicted among non-blacks MDRD (S/P/Bld) [Vol rate/Area] 23 mL/min/{1.73_m2} Low >60 [facility] Comment on above: Result Comment: mL/m in/1.73m2 CKD-EPI Creatinine Equation (2020) Performed By: #### L 501.080 #### [facility] [address] [place], [address] Sodium Levelon 03-16-2025 Sodium [Moles/Vol] 137 mmol/L Normal 133-[address] [facility] Comment on above: Performed By: #### L 501.080 #### [facility] [address] [place], [address] [id number] 02-27-2025 [id number] I called pt and he h as already been scheduled for 03/10/25 with Luz [facility] 36on 02-27-2025 36 Noted. Thank you. [facility] 36 Please reach out and assist in getting an appointment scheduled. I cannot provide recommendations without knowing current medications and doses. He is past due for physical and would prefer this to be scheduled as a physical. [facility] 36 Scheduled for 03/10 @3:20pm pt states he's in Dialysis m-w-f and his gf doesn't get out of work until 3pm ( she's his ride) he maybe a little late. Normal [facility] 36 MyChart messaged pt refill was sent in and to schedule Physical DIEGO. Will call when appropriate. [facility] 36 Rx sent. OARRS repor t reviewed with no discrepancies. CSA signed September 2024. Needs to schedule a physical in the office DIEGO. Has not been seen in the office since September. Normal [facility] 36 Prescription Request : GABAPENTIN 300 MG CAPSULE Last medication check: 09/22/24 Last physical exam: Doesn't look like he's had one with us. Next scheduled appointment: none CSA on file (date): 09/22/24 Last urine drug screen: 09/22/24 Last date of refill on this medication 01/27/25 ( qty 30 refill 0) [facility] 36on 02-17-2025 36 Refused, gabapentin is not due until the 10th [facility] 36 Rx sent [facility] 36 Prescription Request : Last medication check: 09/22/2024 Last physical exam: none Next scheduled appointment: none CSMA: 09/22/2024 Last date of refill on this medication: Normal [facility] 36 Prescription Request : Last medication check: 09/22/2024 Last physical exam: none Next scheduled appointment: none Last date of refill on this medication: Tylenol: 12/22/2024 Rosuvastatin: Normal [facility] .Auto Diffon 02-15-2025 Basophil, Absolute 0.0 10 3/mcL Normal 0.0-0.3 [facility] Comment on above: Performed By: #### C BC, GFR, ANEU, BMP, ADIFF #### [address] [address] Basophils/100 WBC (Bld) 0.2 % Normal 0.0-2.5 [facility] Comment on above: Performed By: #### C BC, GFR, ANEU, BMP, ADIFF #### [address] [address] Eosinophil, Absolute 0.0 10 3/mcL Normal 0.0-0.7 [facility] Comment on above: Performed By: #### C BC, GFR, ANEU, BMP, ADIFF #### [address] [address] Eosinophils/100 WBC (Bld) 0.0 % Normal 0.0-6.0 [facility] Comment on above: Performed By: #### C BC, GFR, ANEU, BMP, ADIFF #### [address] [address] Lymphocyte, Absolute 0.7 10 3/mcL Low 0.9-4.3 [facility] Comment on above: Performed By: #### C BC, GFR, ANEU, BMP, ADIFF #### [address] [address] Lymphocytes/100 WBC (Bld) 8.2 % Low 20.0-40.0 [facility] Comment on above: Performed By: #### C BC, GFR, ANEU, BMP, ADIFF #### [place] [id number] [place] [address] Monocyte, Absolute 0.7 10 3/mcL Normal 0.1-1.4 [facility] Comment on above: Performed By: #### C BC, GFR, ANEU, BMP, ADIFF #### [address] [address] Monocytes/100 WBC (Bld) 7.3 % Normal 2.0-13.0 [facility] Comment on above: Performed By: #### C BC, GFR, ANEU, BMP, ADIFF #### [address] [address] Neutrophils/100 WBC (Bld) 84.3 % High 50.0-75.0 [facility] Comment on above: Performed By: #### C BC, GFR, ANEU, BMP, ADIFF #### [address] [address] .GFRon 02-15-2025 Estimated Glomerular Filtration Rate 18 ml/min/1.73sqm Normal [facility] Comment on above: Result Comment: [...] C BC, GFR, ANEU, BMP, ADIFF #### [address] [address] .NEUABSon 02-15-2025 Neutrophil, Absolute 7.6 10 3/mcL Normal 2.3-8.1 [facility] Comment on above: Performed By: #### C BC, GFR, ANEU, BMP, ADIFF #### [address] [address] BMPon 02-15-2025 BUN/Creatinine Ratio 10.2 ratio Normal 10.0-22.0 [facility] Comment on above: Performed By: #### C BC, GFR, ANEU, BMP, ADIFF #### [address] [address] Calcium [Mass/Vol] 8.4 mg/dL Low 8.7-10.4 [facility] Comment on above: Performed By: #### C BC, GFR, ANEU, BMP, ADIFF #### [address] [address] Chloride [Moles/Vol] 102 mmol/L Normal 98-110 [facility] Comment on above: Performed By: #### C BC, GFR, ANEU, BMP, ADIFF #### [address] [address] CO2 [Moles/Vol] 22 mmol/L Normal 22-32 [facility] Comment on above: Performed By: #### C BC, GFR, ANEU, BMP, ADIFF #### [address] [address] Creatinine [Mass/Vol] 3.93 mg/dL High 0.60-1.40 [facility] Comment on above: Result Comment: Test ing performed on [email or web address] analyzer using enzymatic creatinine methodology. Performed By: #### C BC, GFR, ANEU, BMP, ADIFF #### [address] [address] Electrolyte Balance 10.0 mEq/L Normal 4.0-15.0 [facility] Comment on above: Performed By: #### C BC, GFR, ANEU, BMP, ADIFF #### [address] [address] Glucose [Mass/Vol] 405 mg/dL Critically abnormal 70-110 [facility] Comment on above: Performed By: #### C BC, GFR, ANEU, BMP, ADIFF #### [place] [address] Potassium [Moles/Vol] 5.0 mmol/L Normal 3.5-5.0 [facility] Comment on above: Performed By: #### C BC, GFR, ANEU, BMP, ADIFF #### [place] [address] Sodium [Moles/Vol] 134 mmol/L Low 136-145 [facility] Comment on above: Performed By: #### C BC, GFR, ANEU, BMP, ADIFF #### [place] [address] Urea nitrogen [Mass/Vol] 40.0 mg/dL High 8.0-22.0 [facility] Comment on above: Performed By: #### C BC, GFR, ANEU, BMP, ADIFF #### [place] [address] CBCon 02-15-2025 Erythrocyte distribution width (RBC) [Ratio] 23.7 % High 11.5-15.5 [facility] Comment on above: Performed By: #### C BC, GFR, ANEU, BMP, ADIFF #### [place] [address] Hematocrit (Bld) [Volume fraction] 31.7 % Low 40.0-52.0 [facility] Comment on above: Performed By: #### C BC, GFR, ANEU, BMP, ADIFF #### [place] [address] Hgb 10.0 G/dL Low 13.0-17.5 [facility] Comment on above: Performed By: #### C BC, GFR, ANEU, BMP, ADIFF #### [place] [address] MCH (RBC) [Entitic mass] 24.7 pg Low 27.0-33.0 [facility] Comment on above: Performed By: #### C BC, GFR, ANEU, BMP, ADIFF #### [place] [id number] MCHC 31.6 G/dL Low 32.0-36.0 [facility] Comment on above: Performed By: #### C BC, GFR, ANEU, BMP, ADIFF #### [place] [address] MCV (RBC) [Entitic vol] 78.2 fL Low 81.0-100.0 [facility] Comment on above: Performed By: #### C BC, GFR, ANEU, BMP, ADIFF #### [place] [address] Platelet 186 10 3/mcL Normal 150-450 [facility] Comment on above: Performed By: #### C BC, GFR, ANEU, BMP, ADIFF #### [place] [address] Platelet mean volume (Bld) [Entitic vol] 8.1 fL Normal 6.4-10.5 [facility] Comment on above: Performed By: #### C BC, GFR, ANEU, BMP, ADIFF #### [place] [address] RBC 4.06 10 6/mcL Low 4.50-6.00 [facility] Comment on above: Performed By: #### C BC, GFR, ANEU, BMP, ADIFF #### [place] [id number] WBC 9.0 10 3/mcL Normal 4.5-10.8 [facility] Comment on above: Performed By: #### C BC, GFR, ANEU, BMP, ADIFF #### [place] [id number] LABORATORYOrdered By: Janel Colmenares on 02-15-2025 Glucose [Mass/Vol] 262 mg/dL High 70 - 110 mg/dL [facility] Work Phone: Glucose [Mass/Vol] 355 mg/dL High 70 - 110 mg/dL [facility] Work Phone: LABORATORYOrdered By: Orly Saucedo on 02-15-2025 Glucose [Mass/Vol] 299 mg/dL High 70 - 110 mg/dL [facility] Work Phone: LABORATORYOrdered By: SYSTEM SYSTEM on 02-15-2025 Basophils (Bld) [#/Vol] 0.0 103/mcL Normal 0.0 - 0.3 10^3/mcL Workflow SS Basophils/100 WBC (Bld) 0.2 % [...] above: Interpretive Data: T esting performed on [employer] analyzer using enzymatic creatinine methodology. Electrolyte Balance 10.0 mEq/L Normal 4.0 - 15 .0 mEq/L ADM SS Eosinophils (Bld) [#/Vol] 0.0 103/mcL Normal 0.0 - 0.7 10^3/mcL Workflow SS Eosinophils/100 WBC (Bld) 0.0 % Normal 0.0 - 6.0 % Workflow SS Erythrocyte distribution width (RBC) [Ratio] 23.7 % High 11.5 - 15.5 % AH Workflow SS Estimated Glomerular Filtration Rate 18 [...] Invalid Interpretation Code 70 - 110 mg/dL AH ADM SS Hematocrit (Bld) [Volume fraction] 31.7 % Low 40.0 - 52.0 % AH Workflow SS Hemoglobin (Bld) [Mass/Vol] 10.0 G/dL Low 13.0 - 17.5 G/dL AH Workflow SS Lymphocytes (Bld) [#/Vol] 0.7 103/mcL [...] 78.2 fL Low 81.0 - 100.0 fL Workflow SS Monocytes (Bld) [#/Vol] 0.7 103/mcL [...] Basophil, Absolute 0.1 10 3/mcL Normal 0.0-0.3 [facility] Comment on above: Performed By: #### C BC, GFR, ANEU, BMP, ADIFF #### [address] [address] Basophils/100 WBC (Bld) 0.7 % Normal 0.0-2.5 [facility] Comment on above: Performed By: #### C BC, GFR, ANEU, BMP, ADIFF #### [address] [address] Eosinophil, Absolute 0.0 10 3/mcL Normal 0.0-0.7 [facility] Comment on above: Performed By: #### C BC, GFR, ANEU, BMP, ADIFF #### [address] [address] Eosinophils/100 WBC (Bld) 0.2 % Normal 0.0-6.0 [facility] Comment on above: Performed By: #### C BC, GFR, ANEU, BMP, ADIFF #### [address] [address] Lymphocyte, Absolute 1.3 10 3/mcL Normal 0.9-4.3 [facility] Comment on above: Performed By: #### C BC, GFR, ANEU, BMP, ADIFF #### [address] [address] Lymphocytes/100 WBC (Bld) 16.9 % Low 20.0-40.0 [facility] Comment on above: Performed By: #### C BC, GFR, ANEU, BMP, ADIFF #### [address] [address] Monocyte, Absolute 0.9 10 3/mcL Normal 0.1-1.4 [facility] Comment on above: Performed By: #### C BC, GFR, ANEU, BMP, ADIFF #### [address] [address] Monocytes/100 WBC (Bld) 11.3 % Normal 2.0-13.0 [facility] Comment on above: Performed By: #### C BC, GFR, ANEU, BMP, ADIFF #### [address] [address] Neutrophils/100 WBC (Bld) 70.9 % Normal 50.0-75.0 [facility] Comment on above: Performed By: #### C BC, GFR, ANEU, BMP, ADIFF #### [address] [address] .GFRon 02-14-2025 Estimated Glomerular Filtration Rate 20 ml/min/1.73sqm Normal [facility] Comment on above: Result Comment: [...] C BC, GFR, ANEU, BMP, ADIFF #### [address] [address] .NEUABSon 02-14-2025 Neutrophil, Absolute 5.5 10 3/mcL Normal 2.3-8.1 [facility] Comment on above: Performed By: #### C BC, GFR, ANEU, BMP, ADIFF #### [address] [address] BMPon 02-14-2025 BUN/Creatinine Ratio 10.0 ratio Normal 10.0-22.0 [facility] Comment on above: Performed By: #### C BC, GFR, ANEU, BMP, ADIFF #### [address] [address] Calcium [Mass/Vol] 7.9 mg/dL Low 8.7-10.4 [facility] Comment on above: Performed By: #### C BC, GFR, ANEU, BMP, ADIFF #### [address] [address] Chloride [Moles/Vol] 104 mmol/L Normal 98-110 [facility] Comment on above: Performed By: #### C BC, GFR, ANEU, BMP, ADIFF #### [address] [address] CO2 [Moles/Vol] 26 mmol/L Normal 22-32 [facility] Comment on above: Performed By: #### C BC, GFR, ANEU, BMP, ADIFF #### [address] [address] Creatinine [Mass/Vol] 3.61 mg/dL High 0.60-1.40 [facility] Comment on above: Result Comment: Test ing performed on [email or web address] analyzer using enzymatic creatinine methodology. Performed By: #### C BC, GFR, ANEU, BMP, ADIFF #### [address] [address] Electrolyte Balance 7.0 mEq/L Normal 4.0-15.0 [facility] Comment on above: Performed By: #### C BC, GFR, ANEU, BMP, ADIFF #### [address] [address] Glucose [Mass/Vol] 312 mg/dL High 70-110 [facility] Comment on above: Performed By: #### C BC, GFR, ANEU, BMP, ADIFF #### [address] [address] Potassium [Moles/Vol] 4.4 mmol/L Normal 3.5-5.0 [facility] Comment on above: Performed By: #### C BC, GFR, ANEU, BMP, ADIFF #### [address] [address] Sodium [Moles/Vol] 137 mmol/L Normal 136-145 [facility] Comment on above: Performed By: #### C BC, GFR, ANEU, BMP, ADIFF #### [address] [address] Urea nitrogen [Mass/Vol] 36.0 mg/dL High 8.0-22.0 [facility] Comment on above: Performed By: #### C BC, GFR, ANEU, BMP, ADIFF #### [address] [address] CBCon 02-14-2025 Erythrocyte distribution width (RBC) [Ratio] 23.6 % High 11.5-15.5 [facility] Comment on above: Performed By: #### C BC, GFR, ANEU, BMP, ADIFF #### [place] [address] Hematocrit (Bld) [Volume fraction] 29.0 % Low 40.0-52.0 [facility] Comment on above: Performed By: #### C BC, GFR, ANEU, BMP, ADIFF #### [place] [id number] Hgb 9.2 G/dL Low 13.0-17.5 [facility] Comment on above: Performed By: #### C BC, GFR, ANEU, BMP, ADIFF #### [place] [id number] MCH (RBC) [Entitic mass] 24.7 pg Low 27.0-33.0 [facility] Comment on above: Performed By: #### C BC, GFR, ANEU, BMP, ADIFF #### [place] [id number] MCHC 31.9 G/dL Low 32.0-36.0 [facility] Comment on above: Performed By: #### C BC, GFR, ANEU, BMP, ADIFF #### [place] [id number] MCV (RBC) [Entitic vol] 77.4 fL Low 81.0-100.0 [facility] Comment on above: Performed By: #### C BC, GFR, ANEU, BMP, ADIFF #### [place] [id number] Platelet 185 10 3/mcL Normal 150-450 [facility] Comment on above: Performed By: #### C BC, GFR, ANEU, BMP, ADIFF #### [place] [address] [place] [address] Platelet mean volume (Bld) [Entitic vol] 7.6 fL Normal 6.4-10.5 [facility] Comment on above: Performed By: #### C BC, GFR, ANEU, BMP, ADIFF #### [facility] [address] [place] [address] RBC 3.74 10 6/mcL Low 4.50-6.00 [facility] Comment on above: Performed By: #### C BC, GFR, ANEU, BMP, ADIFF #### [facility] [address] [place] [address] WBC 7.8 10 3/mcL Normal 4.5-10.8 [facility] Comment on above: Performed By: #### C BC, GFR, ANEU, BMP, ADIFF #### [facility] [address] [place] [address] LABORATORYOrdered By: Selena Chand on 02-14-2025 Blood Glucose Testing Reason Routine (02/14/25 9:40 PM) [facility] Work Phone: LABORATORYOrdered By: Moe Dutton on 02-14-2025 Blood Glucose Testing Reason Routine (02/14/25 5:18 PM) [facility] Work Phone: Blood Glucose Testing Reason Routine (02/14/25 12:02 PM) [facility] Work Phone: LABORATORYOrdered By: Samra Cortes on 02-14-2025 Appearance (U) Clear (02/14/25 11:10 AM) Normal Clear Auto Urine SS Bacteria LM.HPF (Urine sed) [#/Area] Trace /HPF Invalid Interpretation Code Negative Auto Urine SS Bilirubin Ql (U) Negative (02/14/25 11:10 AM) Normal Neg-Trace AH Auto Urine SS Color (U) Yellow (02/14/25 11:10 AM) Normal AH Auto Urine SS Glucose Test strip (U) [...] 1.010 (02/14/25 11:10 AM) Normal 1.006-1.02 9 AH Auto Urine SS UA Specimen Type Clean Catch (02/14/25 11:10 AM) Normal AH Auto Urine SS UA Squam Epithelial 0-2 /HPF Normal 0-20 AH Au to Urine SS UA Urobilinogen 0.2 E.U./dL Normal 0.2-1.0 AH Auto Urine SS WBC LM.HPF (Urine sed) [#/Area] 3-5 /HPF Normal 0-5 AH Auto Urine SS LABORATORYOrdered By: Roberto Rock on 02-14-2025 Creatinine (U) [Mass/Vol] 19.7 mg/dL Invalid Interpretation Code AH ADM SS Protein (U) [Mass/Vol] 474.8 mg/dL Invalid Interpretation Code AH ADM SS U Ratio Prot/Creat 24.1 ratio Invalid Interpretation Code Chemistry S LABORATORYOrdered By: SYSTEM SYSTEM on 02-14-2025 Basophils (Bld) [#/Vol] 0.1 103/mcL Normal 0.0 - 0.3 10^3/mcL Workflow SS Basophils/100 WBC (Bld) 0.7 % Normal 0.0 - 2.5 % Workflow SS Calcium [Mass/Vol] 7.9 mg/dL Low 8.7 - 10. 4 mg/dL AH ADM SS Chloride [Moles/Vol] 104 mmol/L Normal 98 - 11 0 mEq/L AH ADM SS CO2 [Moles/Vol] 26 mmol/L Normal 22 - 32 mEq/L AH ADM SS Creatinine [Mass/Vol] 3.61 mg/dL High 0.60 - 1.40 mg/dL AH ADM SS Comment on above: Interpretive Data: T esting performed on [email or web address] analyzer using enzymatic creatinine methodology. Electrolyte Balance 7.0 mEq/L Normal 4.0 - 15 .0 mEq/L ADM SS Eosinophils (Bld) [#/Vol] 0.0 103/mcL Normal 0.0 - 0.7 10^3/mcL Workflow SS Eosinophils/100 WBC (Bld) 0.2 % Normal 0.0 - 6.0 % Workflow SS Erythrocyte distribution width (RBC) [Ratio] 23.6 % High 11.5 - 15.5 % Workflow SS Estimated Glomerular Filtration Rate 20 [...] 29.0 % Low 40.0 - 52.0 % Workflow SS Hemoglobin (Bld) [Mass/Vol] 9.2 G/dL Low 13.0 - 17.5 G/dL Workflow SS Lymphocytes (Bld) [#/Vol] 1.3 103/mcL Normal 0.9 - 4.3 10^3/mcL Workflow SS Lymphocytes/100 WBC (Bld) 16.9 % Low 20.0 - 40.0 % Workflow SS MCH (RBC) [Entitic mass] 24.7 pg Low 27.0 - 33.0 pg Workflow SS MCHC 31.9 G/dL Low 32.0 - 36.0 G/dL Workflow SS MCV (RBC) [Entitic vol] 77.4 fL Low 81.0 - 100.0 fL Workflow SS Monocytes [...] 3.74 106/mcL Low 4.50 - 6.00 10^6/mcL Workflow SS Sodium [Moles/Vol] 137 mmol/L Normal 136 - 145 mEq/L ADM SS Urea nitrogen [Mass/Vol] 36.0 mg/dL High 8.0 - 22.0 mg/dL ADM SS Urea nitrogen/Creatinine [Mass ratio] 10.0 ratio Normal 10.0 - 22.0 ratio ADM SS WBC (Bld) [#/Vol] 7.8 103/mcL Normal 4.5 - 10.8 10^3/mcL Workflow SS RPCURon 02-14-2025 U Creatinine 19.7 mg/dL [facility] MAIN Comment on above: Performed By: #### C BC, GFR, ANEU, BMP, ADIFF #### [address] [address] U Protein 474.8 mg/dL Normal [facility] Comment on above: Performed By: #### C BC, GFR, ANEU, BMP, ADIFF #### [address] [address] U Ratio Prot/Creat 24.1 ratio Normal [facility] Comment on above: Performed By: #### C BC, GFR, ANEU, BMP, ADIFF #### [address] [address] UAon 02-14-2025 Color (U) Yellow Normal [facility] Comment on above: Performed By: #### C BC, GFR, ANEU, BMP, ADIFF #### [place] [address] Glucose (U) [Mass/Vol] 500 mg/dL Abnormal Negative [facility] Comment on above: Performed By: #### C BC, GFR, ANEU, BMP, ADIFF #### [place] [phone] Ketones Ql (U) Negative Normal Neg-Trace [facility] Comment on above: Performed By: #### C BC, GFR, ANEU, BMP, ADIFF #### [place] [address] UA Appear Clear Normal Clear [facility] Comment on above: Performed By: #### C BC, GFR, ANEU, BMP, ADIFF #### [place] [address] UA Blood Small Abnormal Neg-Trace [facility] Comment on above: Performed By: #### C BC, GFR, ANEU, BMP, ADIFF #### [place] [address] UA Leuk Est Negative Normal Negative [facility] Comment on above: Performed By: #### C BC, GFR, ANEU, BMP, ADIFF #### [place] [address] UA Nitrite Negative Normal Negative [facility] Comment on above: Performed By: #### C BC, GFR, ANEU, BMP, ADIFF #### [place] [address] UA pH 7.5 Normal 5.0 - 8.0 [facility] Comment on above: Performed By: #### C BC, GFR, ANEU, BMP, ADIFF #### [place] [address] UA Protein >=1000 Abnormal Negative [facility] Comment on above: Performed By: #### C BC, GFR, ANEU, BMP, ADIFF #### [place] [address] UA Spec Grav 1.010 Normal 1.006-1.02 9 [facility] Comment on above: Performed By: #### C BC, GFR, ANEU, BMP, ADIFF #### [place] [address] UA Specimen Type Clean Catch Normal [facility] Comment on above: Performed By: #### C BC, GFR, ANEU, BMP, ADIFF #### [address] [address] UA Urobilinogen 0.2 E.U./dL Normal 0.2-1.0 [facility] Comment on above: Performed By: #### C BC, GFR, ANEU, BMP, ADIFF #### [place] [address] Urobilinogen (U) [Mass/Vol] Negative Normal Neg-Trace [facility] Comment on above: Performed By: #### C BC, GFR, ANEU, BMP, ADIFF #### [place] [address] UAMICon 02-14-2025 UA Bacteria Trace Abnormal Negative [facility] Comment on above: Performed By: #### C BC, GFR, ANEU, BMP, ADIFF #### [place] [address] UA RBC 0-2 Normal 0-2 [facility] Comment on above: Performed By: #### C BC, GFR, ANEU, BMP, ADIFF #### [place] [address] UA Squam Epithelial 0-2 Normal 0-20 [facility] Comment on above: Performed By: #### C BC, GFR, ANEU, BMP, ADIFF #### [place] [address] UA WBC 3-5 Normal 0-5 [facility] Comment on above: Performed By: #### C BC, GFR, ANEU, BMP, ADIFF #### [place] [address] .GFRon 02-13-2025 Estimated Glomerular Filtration Rate 14 ml/min/1.73sqm Normal [facility] Comment on above: Result Comment: [...] Performed By: #### R FP, GFR #### [place] [address] LABORATORYOrdered By: SYSTEM SYSTEM on 02-13-2025 Albumin [...] above: Interpretive Data: T esting performed on [email or web address] analyzer using enzymatic creatinine methodology. Electrolyte Balance [...] 200 mg/dL High 70 - 110 mg/dL ADM SS Phosphate [Mass/Vol] 6.2 mg/dL High 2.4 - 5 .1 mg/dL ADM SS [...] ratio Low 10.0 - 22.0 ratio ADM RFPon 02-13-2025 Albumin Level 2.1 G/dL Low 3.2-4.8 [facility] Comment on above: Performed By: #### R FP, GFR #### [address] [address] BUN/Creatinine Ratio 9.5 ratio Low 10.0-22.0 [facility] Comment on above: Performed By: #### R FP, GFR #### [address] [address] Calcium [Mass/Vol] 7.8 mg/dL Low 8.7-10.4 [facility] Comment on above: Performed By: #### R FP, GFR #### [address] [address] Chloride [Moles/Vol] 105 mmol/L Normal 98-110 [facility] Comment on above: Performed By: #### R FP, GFR #### [address] [address] CO2 [Moles/Vol] 25 mmol/L Normal 22-32 [facility] Comment on above: Performed By: #### R FP, GFR #### [address] [address] Creatinine [Mass/Vol] 4.76 mg/dL High 0.60-1.40 [facility] Comment on above: Result Comment: Test ing performed on [employer] analyzer using enzymatic creatinine methodology. Performed By: #### R FP, GFR #### [address] [address] Electrolyte Balance 7.0 mEq/L Normal 4.0-15.0 [facility] Comment on above: Performed By: #### R FP, GFR #### [address] [address] Glucose [Mass/Vol] 200 mg/dL High 70-110 [facility] Comment on above: Performed By: #### R FP, GFR #### [address] [address] Phosphate [Mass/Vol] 6.2 mg/dL High 2.4-5.1 [facility] Comment on above: Result Comment: No te - New Reference Range in effect 20 Performed By: #### R FP, GFR #### [address] [address] Potassium [Moles/Vol] 4.5 mmol/L Normal 3.5-5.0 [facility] Comment on above: Performed By: #### R FP, GFR #### [address] [address] Sodium [Moles/Vol] 137 mmol/L Normal 136-145 [facility] Comment on above: Performed By: #### R FP, GFR #### [address] [address] Urea nitrogen [Mass/Vol] 45.0 mg/dL High 8.0-22.0 [facility] Comment on above: Performed By: #### R FP, GFR #### [address] [address] .GFRon 02-12-2025 Estimated Glomerular Filtration Rate 17 ml/min/1.73sqm Normal [facility] Comment on above: Result Comment: [...] C BC, GFR, ANEU, BMP, ADIFF #### [place] [address] .Manual Diffon 02-12-2025 Basophil %, Manual 0.0 % Normal 0.0-2.5 [facility] Comment on above: Performed By: #### C BC, GFR, ANEU, BMP, ADIFF #### [place] [address] Basophil, Abs Manual 0.0 10 3/mcL Normal 0.0-0.3 [facility] Comment on above: Performed By: #### C BC, GFR, ANEU, BMP, ADIFF #### [place] [address] Eosinophil %, Manual 0.0 % Normal 0.0-6.0 [facility] Comment on above: Performed By: #### C BC, GFR, ANEU, BMP, ADIFF #### [place] [address] Eosinophil, Abs Manual 0.0 10 3/mcL Normal 0.0-0.7 [facility] Comment on above: Performed By: #### C BC, GFR, ANEU, BMP, ADIFF #### [place] [address] Lymphocyte %, Manual 8.0 % Low 20.0-40.0 [facility] Comment on above: Performed By: #### C BC, GFR, ANEU, BMP, ADIFF #### [place] [address] Lymphocyte, Abs Manual 0.6 10 3/mcL Low 0.9-4.3 [facility] Comment on above: Performed By: #### C BC, GFR, ANEU, BMP, ADIFF #### [place] [address] Monocyte %, Manual 4.0 % Normal 2.0-13.0 [facility] Comment on above: Performed By: #### C BC, GFR, ANEU, BMP, ADIFF #### [place] [address] Monocyte, Abs Manual 0.3 10 3/mcL Normal 0.1-1.4 [facility] Comment on above: Performed By: #### C BC, GFR, ANEU, BMP, ADIFF #### [place] [address] Neutrophil %, Manual 88.0 % High 50.0-75.0 [facility] Comment on above: Performed By: #### C BC, GFR, ANEU, BMP, ADIFF #### [place] [address] Neutrophil, Abs Manual 6.6 10 3/mcL Normal 2.3-8.1 [facility] Comment on above: Performed By: #### C BC, GFR, ANEU, BMP, ADIFF #### [place] [address] Nucleated RBC 0.0 /100 WBC Normal [facility] Comment on above: Performed By: #### C BC, GFR, ANEU, BMP, ADIFF #### [place] [address] .Morphon 02-12-2025 Anisocytosis Ql (Bld) 1+ Normal [facility] Comment on above: Performed By: #### C BC, GFR, ANEU, BMP, ADIFF #### [place] [address] Hypochrom 1+ Normal [facility] Comment on above: Performed By: #### C BC, GFR, ANEU, BMP, ADIFF #### [place] [address] Large Platelets Few Normal [facility] Comment on above: Performed By: #### C BC, GFR, ANEU, BMP, ADIFF #### [place] [address] Microcytosis 1+ Normal [facility] Comment on above: Performed By: #### C BC, GFR, ANEU, BMP, ADIFF #### [address] [address] Ovalocytes 1+ [facility] MAIN Comment on above: Performed By: #### C BC, GFR, ANEU, BMP, ADIFF #### [address] [address] Platelet Estimate Normal [facility] MAIN Comment on above: Performed By: #### C BC, GFR, ANEU, BMP, ADIFF #### [place] [address] Poik 1+ [facility] MAIN Comment on above: Performed By: #### C BC, GFR, ANEU, BMP, ADIFF #### [place] [id number] Tear Cell 1+ [facility] MAIN Comment on above: Performed By: #### C BC, GFR, ANEU, BMP, ADIFF #### [place] [id number] BMPon 02-12-2025 BUN/Creatinine Ratio 9.2 ratio Low 10.0-22.0 [facility] Comment on above: Performed By: #### C BC, GFR, ANEU, BMP, ADIFF #### [place] [address] Calcium [Mass/Vol] 8.1 mg/dL Low 8.7-10.4 [facility] Comment on above: Performed By: #### C BC, GFR, ANEU, BMP, ADIFF #### [address] [address] Chloride [Moles/Vol] 106 mmol/L Normal 98-110 [facility] Comment on above: Performed By: #### C BC, GFR, ANEU, BMP, ADIFF #### [place] [id number] CO2 [Moles/Vol] 28 mmol/L Normal 22-32 [facility] Comment on above: Performed By: #### C BC, GFR, ANEU, BMP, ADIFF #### [place] [address] Creatinine [Mass/Vol] 4.14 mg/dL High 0.60-1.40 [facility] Comment on above: Result Comment: Test ing performed on [email or web address] analyzer using enzymatic creatinine methodology. Performed By: #### C BC, GFR, ANEU, BMP, ADIFF #### [address] [address] Electrolyte Balance 5.0 mEq/L Normal 4.0-15.0 [facility] Comment on above: Performed By: #### C BC, GFR, ANEU, BMP, ADIFF #### [address] [address] Glucose [Mass/Vol] 210 mg/dL High 70-110 [facility] Comment on above: Performed By: #### C BC, GFR, ANEU, BMP, ADIFF #### [address] [address] Potassium [Moles/Vol] 4.7 mmol/L Normal 3.5-5.0 [facility] Comment on above: Performed By: #### C BC, GFR, ANEU, BMP, ADIFF #### [address] [address] Sodium [Moles/Vol] 139 mmol/L Normal 136-145 [facility] Comment on above: Performed By: #### C BC, GFR, ANEU, BMP, ADIFF #### [address] [address] Urea nitrogen [Mass/Vol] 38.0 mg/dL High 8.0-22.0 [facility] Comment on above: Performed By: #### C BC, GFR, ANEU, BMP, ADIFF #### [address] [address] CBCon 02-12-2025 Erythrocyte distribution width (RBC) [Ratio] 24.7 % High 11.5-15.5 [facility] Comment on above: Performed By: #### C BC, GFR, ANEU, BMP, ADIFF #### [address] [address] Hematocrit (Bld) [Volume fraction] 27.5 % Low 40.0-52.0 [facility] Comment on above: Performed By: #### C BC, GFR, ANEU, BMP, ADIFF #### [place] [address] Hgb 8.5 G/dL Low 13.0-17.5 [facility] Comment on above: Performed By: #### C BC, GFR, ANEU, BMP, ADIFF #### [place] [address] MCH (RBC) [Entitic mass] 23.9 pg Low 27.0-33.0 [facility] Comment on above: Performed By: #### C BC, GFR, ANEU, BMP, ADIFF #### [place] [address] MCHC 31.0 G/dL Low 32.0-36.0 [facility] Comment on above: Performed By: #### C BC, GFR, ANEU, BMP, ADIFF #### [place] [address] MCV (RBC) [Entitic vol] 77.1 fL Low 81.0-100.0 [facility] Comment on above: Performed By: #### C BC, GFR, ANEU, BMP, ADIFF #### [place] [address] Platelet 204 10 3/mcL Normal 150-450 [facility] Comment on above: Performed By: #### C BC, GFR, ANEU, BMP, ADIFF #### [place] [address] Platelet mean volume (Bld) [Entitic vol] 7.8 fL Normal 6.4-10.5 [facility] Comment on above: Performed By: #### C BC, GFR, ANEU, BMP, ADIFF #### [place] [address] RBC 3.57 10 6/mcL Low 4.50-6.00 [facility] Comment on above: Performed By: #### C BC, GFR, ANEU, BMP, ADIFF #### [place] [address] WBC 7.5 10 3/mcL Normal 4.5-10.8 [facility] Comment on above: Performed By: #### C BC, GFR, ANEU, BMP, ADIFF #### [place] [id number] [place] [address] LABORATORYOrdered By: SYSTEM SYSTEM on 02-12-2025 Anisocytosis [...] AM) Invalid Interpretation Code AH Workflow SS Lymphocytes (Bld) [#/Vol] 0.6 103/mcL [...] 6:21 AM) Invalid Interpretation Code Workflow SS Monocytes (Bld) [#/Vol] 0.3 103/mcL [...] /100 WBC Invalid Interpretation Code Workflow SS Ovalocytes LM Ql (Bld) 1+ *NA* (02/12/25 6:21 AM) Invalid Interpretation Code Workflow SS Platelet mean volume (Bld) [Entitic vol] 7.8 fL Normal 6.4 - 10.5 fL AH Workflow SS Platelets (Bld) [#/Vol] 204 103/mcL Normal 150 - 450 10^3/mcL AH Workflow SS Platelets LM Ql (Bld) Normal *NA* (02/12/25 6:21 AM) Invalid Interpretation Code Workflow SS Poikilocytosis LM Ql (Bld) 1+ *NA* (02/12/25 6:21 AM) Invalid Interpretation Code Workflow SS RBC (Bld) [#/Vol] 3.57 106/mcL Low 4.50 - 6.00 10^6/mcL Workflow SS WBC (Bld) [#/Vol] 7.5 103/mcL Normal 4.5 - 10.8 10^3/mcL Workflow SS .Auto Diffon 02-11-2025 Basophil, Absolute 0.1 10 3/mcL Normal 0.0-0.3 [facility] Comment on above: Performed By: #### C BC, GFR, ANEU, BMP, ADIFF #### [address] [address] Eosinophil, Absolute 0.1 10 3/mcL Normal 0.0-0.7 [facility] Comment on above: Performed By: #### C BC, GFR, ANEU, BMP, ADIFF #### [address] [address] Lymphocyte, Absolute 1.1 10 3/mcL Normal 0.9-4.3 [facility] Comment on above: Performed By: #### C BC, GFR, ANEU, BMP, ADIFF #### [address] [address] Monocyte, Absolute 0.9 10 3/mcL Normal 0.1-1.4 [facility] Comment on above: Performed By: #### C BC, GFR, ANEU, BMP, ADIFF #### [address] [address] .Auto DiffOrdered By: SYSTEM SYSTEM on 02-11-2025 Basophils/100 WBC (Bld) 0.7 % Normal 0.0-2.5 A H Workflow SS Comment on above: Performed By: #### C BC, GFR, ANEU, BMP, ADIFF #### [address] [address] Eosinophils/100 WBC (Bld) 0.8 % Normal 0.0-6.0 AH Workflow SS Comment on above: Performed By: #### C BC, GFR, ANEU, BMP, ADIFF #### [address] [address] Lymphocytes/100 WBC (Bld) 14.4 % Low 20.0-40.0 AH Workflow SS Comment on above: Performed By: #### C BC, GFR, ANEU, BMP, ADIFF #### [address] [address] Monocytes/100 WBC (Bld) 10.8 % Normal 2.0-13.0 A H Workflow SS Comment on above: Performed By: #### C BC, GFR, ANEU, BMP, ADIFF #### [address] [address] Neutrophils/100 WBC (Bld) 73.3 % Normal 50.0-75.0 AH Workflow SS Comment on above: Performed By: #### C BC, GFR, ANEU, BMP, ADIFF #### [address] [address] .GFRon 02-11-2025 Estimated Glomerular Filtration Rate 13 ml/min/1.73sqm Normal [facility] Comment on above: Result Comment: [...] C BC, GFR, ANEU, BMP, ADIFF #### [address] [address] .NEUABSon 02-11-2025 Neutrophil, Absolute 5.8 10 3/mcL Normal 2.3-8.1 [facility] Comment on above: Performed By: #### C BC, GFR, ANEU, BMP, ADIFF #### [address] [address] BMPon 02-11-2025 BUN/Creatinine Ratio 8.2 ratio Low 10.0-22.0 [facility] Comment on above: Performed By: #### C BC, GFR, ANEU, BMP, ADIFF #### [address] [address] Calcium [Mass/Vol] 7.9 mg/dL Low 8.7-10.4 [facility] Comment on above: Performed By: #### C BC, GFR, ANEU, BMP, ADIFF #### [address] [address] Chloride [Moles/Vol] 111 mmol/L High 98-110 [facility] Comment on above: Performed By: #### C BC, GFR, ANEU, BMP, ADIFF #### [address] [address] CO2 [Moles/Vol] 23 mmol/L Normal 22-32 [facility] Comment on above: Performed By: #### C BC, GFR, ANEU, BMP, ADIFF #### [address] [address] Creatinine [Mass/Vol] 5.13 mg/dL High 0.60-1.40 [facility] Comment on above: Result Comment: Test ing performed on [email or web address] analyzer using enzymatic creatinine methodology. Performed By: #### C BC, GFR, ANEU, BMP, ADIFF #### [address] [address] Electrolyte Balance 7.0 mEq/L Normal 4.0-15.0 [facility] Comment on above: Performed By: #### C BC, GFR, ANEU, BMP, ADIFF #### [place] [id number] Glucose [Mass/Vol] 129 mg/dL High 70-110 [facility] Comment on above: Performed By: #### C BC, GFR, ANEU, BMP, ADIFF #### [place] [phone] Potassium [Moles/Vol] 5.0 mmol/L Normal 3.5-5.0 [facility] Comment on above: Performed By: #### C BC, GFR, ANEU, BMP, ADIFF #### [place] [phone] Sodium [Moles/Vol] 141 mmol/L Normal 136-145 [facility] Comment on above: Performed By: #### C BC, GFR, ANEU, BMP, ADIFF #### [place] [phone] Urea nitrogen [Mass/Vol] 42.0 mg/dL High 8.0-22.0 [facility] Comment on above: Performed By: #### C BC, GFR, ANEU, BMP, ADIFF #### [address] [address] CBCon 02-11-2025 Erythrocyte distribution width (RBC) [Ratio] 24.7 % High 11.5-15.5 [facility] Comment on above: Performed By: #### C BC, GFR, ANEU, BMP, ADIFF #### [place] [phone] Hematocrit (Bld) [Volume fraction] 23.9 % Low 40.0-52.0 [facility] Comment on above: Performed By: #### C BC, GFR, ANEU, BMP, ADIFF #### [place] [address] Hgb 7.6 G/dL Low 13.0-17.5 [facility] Comment on above: Performed By: #### C BC, GFR, ANEU, BMP, ADIFF #### [place] [address] MCH (RBC) [Entitic mass] 24.3 pg Low 27.0-33.0 [facility] Comment on above: Performed By: #### C BC, GFR, ANEU, BMP, ADIFF #### [place] [address] MCHC 32.0 G/dL Normal 32.0-36.0 [facility] Comment on above: Performed By: #### C BC, GFR, ANEU, BMP, ADIFF #### [place] [address] MCV (RBC) [Entitic vol] 76.0 fL Low 81.0-100.0 [facility] Comment on above: Performed By: #### C BC, GFR, ANEU, BMP, ADIFF #### [place] [address] Platelet 200 10 3/mcL Normal 150-450 [facility] Comment on above: Performed By: #### C BC, GFR, ANEU, BMP, ADIFF #### [place] [address] Platelet mean volume (Bld) [Entitic vol] 8.4 fL Normal 6.4-10.5 [facility] Comment on above: Performed By: #### C BC, GFR, ANEU, BMP, ADIFF #### [place] [address] RBC 3.14 10 6/mcL Low 4.50-6.00 [facility] Comment on above: Performed By: #### C BC, GFR, ANEU, BMP, ADIFF #### [place] [address] WBC 7.9 10 3/mcL Normal 4.5-10.8 [facility] Comment on above: Performed By: #### C BC, GFR, ANEU, BMP, ADIFF #### [place] [address] LABORATORYOrdered By: SYSTEM SYSTEM on 02-11-2025 Basophils (Bld) [#/Vol] 0.1 103/mcL Normal 0.0 - 0.3 10^3/mcL AH Workflow SS Eosinophils (Bld) [#/Vol] 0.1 103/mcL Normal 0.0 - 0.7 10^3/mcL AH Workflow SS Lymphocytes (Bld) [#/Vol] 1.1 103/mcL Normal 0.9 - 4.3 10^3/mcL AH Workflow SS Monocytes (Bld) [#/Vol] 0.9 103/mcL Normal 0.1 - 1.4 10^3/mcL AH Workflow SS Neutrophils (Bld) [#/Vol] 5.8 103/mcL Normal 2.3 - 8.1 10^3/mcL AH Workflow SS MGOrdered By: SYSTEM SYSTEM on 02-11-2025 Magnesium [Mass/Vol] 1.7 mg/dL Normal 1.6-2.4 AH A DM SS Comment on above: Performed By: #### C BC, GFR, ANEU, BMP, ADIFF #### [place] [address] PHOSOrdered By: SYSTEM PEERE [employer] on 02-11-2025 Phosphate [Mass/Vol] 7.7 mg/dL High 2.4-5.1 AH A DM SS Comment on above: Interpretive Data: * *Note - New Reference Range in effect 20 Result Comment: No te - New Reference Range in effect 20 Performed By: #### C BC, GFR, ANEU, BMP, ADIFF #### [place] [address] .Auto Diffon 02-10-2025 Basophil, Absolute 0.0 10 3/mcL Normal 0.0-0.3 [facility] Comment on above: Performed By: #### C BC, GFR, ANEU, BMP, ADIFF #### [address] [address] Basophils/100 WBC (Bld) 0.5 % Normal 0.0-2.5 [facility] Comment on above: Performed By: #### C BC, GFR, ANEU, BMP, ADIFF #### [address] [address] Eosinophil, Absolute 0.0 10 3/mcL Normal 0.0-0.7 [facility] Comment on above: Performed By: #### C BC, GFR, ANEU, BMP, ADIFF #### [address] [address] Eosinophils/100 WBC (Bld) 0.2 % Normal 0.0-6.0 [facility] Comment on above: Performed By: #### C BC, GFR, ANEU, BMP, ADIFF #### [address] [address] Lymphocyte, Absolute 0.2 10 3/mcL Low 0.9-4.3 [facility] Comment on above: Performed By: #### C BC, GFR, ANEU, BMP, ADIFF #### [address] [address] Lymphocytes/100 WBC (Bld) 3.1 % Low 20.0-40.0 [facility] Comment on above: Performed By: #### C BC, GFR, ANEU, BMP, ADIFF #### [address] [address] Monocyte, Absolute 0.2 10 3/mcL Normal 0.1-1.4 [facility] Comment on above: Performed By: #### C BC, GFR, ANEU, BMP, ADIFF #### [address] [address] Monocytes/100 WBC (Bld) 2.1 % Normal 2.0-13.0 [facility] MA[facility] Comment on above: Performed By: #### C BC, GFR, ANEU, BMP, ADIFF #### [address] [address] Neutrophils/100 WBC (Bld) 94.1 % High 50.0-75.0 [facility] Comment on above: Performed By: #### C BC, GFR, ANEU, BMP, ADIFF #### [address] [address] .GFRon 02-10-2025 Estimated Glomerular Filtration Rate 14 ml/min/1.73sqm [facility] MAIN Comment on above: Result [...] C BC, GFR, ANEU, BMP, ADIFF #### [place] [address] Estimated Glomerular Filtration Rate 11 ml/min/1.73sqm [facility] MAIN Comment on above: Result [...] C BC, GFR, ANEU, BMP, ADIFF #### [address] [address] Estimated Glomerular Filtration Rate 11 ml/min/1.73sqm [facility] MAIN Comment on above: Result [...] C BC, GFR, ANEU, BMP, ADIFF #### [place] [address] Estimated Glomerular Filtration Rate 11 ml/min/1.73sqm [facility] MAIN Comment on above: Result [...] C BC, GFR, ANEU, BMP, ADIFF #### [place] [address] .Morphon 02-10-2025 Anisocytosis Ql (Bld) 2+ Normal [facility] Comment on above: Performed By: #### C BC, GFR, ANEU, BMP, ADIFF #### [place] [address] Hypochrom 1+ [facility] MAIN Comment on above: Performed By: #### C BC, GFR, ANEU, BMP, ADIFF #### [place] [address] Microcytosis 1+ [facility] MAIN Comment on above: Performed By: #### C BC, GFR, ANEU, BMP, ADIFF #### [place] [phone] Ovalocytes 1+ Normal [facility] Comment on above: Performed By: #### C BC, GFR, ANEU, BMP, ADIFF #### [place] [address] Platelet Estimate Normal Normal [facility] Comment on above: Performed By: #### C BC, GFR, ANEU, BMP, ADIFF #### [place] [address] Poik 1+ Normal [facility] Comment on above: Performed By: #### C BC, GFR, ANEU, BMP, ADIFF #### [place] [address] .NEUABSon 02-10-2025 Neutrophil, Absolute 7.1 10 3/mcL Normal 2.3-8.1 [facility] Comment on above: Performed By: #### C BC, GFR, ANEU, BMP, ADIFF #### [place] [address] A1Con 02-10-2025 Glucose [Mass/Vol] 197 mg/dL Normal [facility] Comment on above: Result Comment: Nissa mated Average Glucose calculated by equation ((28.7xA1C)-46.7) Estimated average glucose (eAG) is a calculated value from Hemoglobin A1C and is parts representative of the average blood glucose level in the last 2-3 month period. Normal range: less than 114 mg/dL Performed By: #### C BC, GFR, ANEU, BMP, ADIFF #### [place] [address] HbA1c (Bld) [Mass fraction] 8.5 % High 4.0-6.0 [facility] Comment on above: Performed By: #### C BC, GFR, ANEU, BMP, ADIFF #### [place] [address] BMPon 02-10-2025 BUN/Creatinine Ratio 8.6 ratio Low 10.0-22.0 [facility] Comment on above: Performed By: #### C BC, GFR, ANEU, BMP, ADIFF #### [address] [address] Calcium [Mass/Vol] 8.3 mg/dL Low 8.7-10.4 [facility] Comment on above: Performed By: #### C BC, GFR, ANEU, BMP, ADIFF #### [address] [address] Chloride [Moles/Vol] 109 mmol/L Normal 98-110 [facility] Comment on above: Performed By: #### C BC, GFR, ANEU, BMP, ADIFF #### [address] [address] CO2 [Moles/Vol] 24 mmol/L Normal 22-32 [facility] Comment on above: Performed By: #### C BC, GFR, ANEU, BMP, ADIFF #### [address] [address] Creatinine [Mass/Vol] 4.86 mg/dL High 0.60-1.40 [facility] Comment on above: Result Comment: Test ing performed on [email or web address] analyzer using enzymatic creatinine methodology. Performed By: #### C BC, GFR, ANEU, BMP, ADIFF #### [address] [address] Electrolyte Balance 7.0 mEq/L Normal 4.0-15.0 [facility] Comment on above: Performed By: #### C BC, GFR, ANEU, BMP, ADIFF #### [address] [address] Glucose [Mass/Vol] 164 mg/dL High 70-110 [facility] Comment on above: Performed By: #### C BC, GFR, ANEU, BMP, ADIFF #### [address] [address] Potassium [Moles/Vol] 5.6 mmol/L High 3.5-5.0 [facility] Comment on above: Performed By: #### C BC, GFR, ANEU, BMP, ADIFF #### [address] [address] Sodium [Moles/Vol] 140 mmol/L Normal 136-145 [facility] Comment on above: Performed By: #### C BC, GFR, ANEU, BMP, ADIFF #### [address] [address] Urea nitrogen [Mass/Vol] 42.0 mg/dL High 8.0-22.0 [facility] Comment on above: Performed By: #### C BC, GFR, ANEU, BMP, ADIFF #### [address] [address] BUN/Creatinine Ratio 9.4 ratio Low 10.0-22.0 [facility] Comment on above: Performed By: #### C BC, GFR, ANEU, BMP, ADIFF #### [address] [address] Calcium [Mass/Vol] 8.3 mg/dL Low 8.7-10.4 [facility] Comment on above: Performed By: #### C BC, GFR, ANEU, BMP, ADIFF #### [address] [address] Chloride [Moles/Vol] 111 mmol/L High 98-110 [facility] Comment on above: Performed By: #### C BC, GFR, ANEU, BMP, ADIFF #### [address] [address] CO2 [Moles/Vol] 20 mmol/L Low 22-32 [facility] Comment on above: Performed By: #### C BC, GFR, ANEU, BMP, ADIFF #### [address] [address] Creatinine [Mass/Vol] 5.85 mg/dL High 0.60-1.40 [facility] Comment on above: Result Comment: Test ing performed on [email or web address] analyzer using enzymatic creatinine methodology. Performed By: #### C BC, GFR, ANEU, BMP, ADIFF #### [address] [address] Electrolyte Balance 8.0 mEq/L Normal 4.0-15.0 [facility] Comment on above: Performed By: #### C BC, GFR, ANEU, BMP, ADIFF #### [address] [address] Glucose [Mass/Vol] 225 mg/dL High 70-110 [facility] Comment on above: Performed By: #### C BC, GFR, ANEU, BMP, ADIFF #### [address] [address] Potassium [Moles/Vol] 6.6 mmol/L Critically abnormal 3.5-5.0 [facility] Comment on above: Performed By: #### C BC, GFR, ANEU, BMP, ADIFF #### [place] [phone] Sodium [Moles/Vol] 139 mmol/L Normal 136-145 [facility] Comment on above: Performed By: #### C BC, GFR, ANEU, BMP, ADIFF #### [place] [phone] Urea nitrogen [Mass/Vol] 55.0 mg/dL High 8.0-22.0 [facility] Comment on above: Performed By: #### C BC, GFR, ANEU, BMP, ADIFF #### [address] [address] CBCon 02-10-2025 Erythrocyte distribution width (RBC) [Ratio] 25.1 % High 11.5-15.5 [facility] Comment on above: Performed By: #### C BC, GFR, ANEU, BMP, ADIFF #### [address] [address] Hematocrit (Bld) [Volume fraction] 27.2 % Low 40.0-52.0 [facility] Comment on above: Performed By: #### C BC, GFR, ANEU, BMP, ADIFF #### [address] [address] Hgb 8.8 G/dL Low 13.0-17.5 [facility] Comment on above: Performed By: #### C BC, GFR, ANEU, BMP, ADIFF #### [address] [address] MCH (RBC) [Entitic mass] 24.9 pg Low 27.0-33.0 [facility] Comment on above: Performed By: #### C BC, GFR, ANEU, BMP, ADIFF #### [address] [address] MCHC 32.3 G/dL Normal 32.0-36.0 [facility] Comment on above: Performed By: #### C BC, GFR, ANEU, BMP, ADIFF #### [address] [address] MCV (RBC) [Entitic vol] 77.0 fL Low 81.0-100.0 [facility] MAIN Comment on above: Performed By: #### C BC, GFR, ANEU, BMP, ADIFF #### [place] [address] Platelet 211 10 3/mcL Normal 150-450 [facility] Comment on above: Performed By: #### C BC, GFR, ANEU, BMP, ADIFF #### [place] [address] Platelet mean volume (Bld) [Entitic vol] 8.4 fL Normal 6.4-10.5 [facility] Comment on above: Performed By: #### C BC, GFR, ANEU, BMP, ADIFF #### [place] [address] RBC 3.54 10 6/mcL Low 4.50-6.00 [facility] Comment on above: Performed By: #### C BC, GFR, ANEU, BMP, ADIFF #### [place] [phone] WBC 7.5 10 3/mcL Normal 4.5-10.8 [facility] Comment on above: Performed By: #### C BC, GFR, ANEU, BMP, ADIFF #### [address] [address] CMPon 02-10-2025 Albumin Level 2.1 G/dL Low 3.2-4.8 [facility] Comment on above: Performed By: #### C BC, GFR, ANEU, BMP, ADIFF #### [place] [address] Albumin/Globulin [Mass ratio] 0.4 {ratio} Low 0.9-1.6 [facility] Comment on above: Performed By: #### C BC, GFR, ANEU, BMP, ADIFF #### [place] [phone] ALP [Catalytic activity/Vol] 137 U/L High 38-126 [facility] Comment on above: Performed By: #### C BC, GFR, ANEU, BMP, ADIFF #### [place] [address] ALT [Catalytic activity/Vol] 10 U/L Low 12-55 [facility] Comment on above: Performed By: #### C BC, GFR, ANEU, BMP, ADIFF #### [place] [phone] AST [Catalytic activity/Vol] 12 U/L Normal 8-34 [facility] Comment on above: Performed By: #### C BC, GFR, ANEU, BMP, ADIFF #### [place] [phone] Bili Total 0.20 mg/dL Normal 0.20-1.20 [facility] Comment on above: Result Comment: Use of this assay is not recommended for patients undergoing treatment with eltrombopag due to the potential for falsely elevated results. Performed By: #### C BC, GFR, ANEU, BMP, ADIFF #### [place] [phone] BUN/Creatinine Ratio 9.2 ratio Low 10.0-22.0 [facility] Comment on above: Performed By: #### C BC, GFR, ANEU, BMP, ADIFF #### [address] [address] Calcium [Mass/Vol] 8.0 mg/dL Low 8.7-10.4 [facility] Comment on above: Performed By: #### C BC, GFR, ANEU, BMP, ADIFF #### [place] [phone] Chloride [Moles/Vol] 111 mmol/L High 98-110 [facility] Comment on above: Performed By: #### C BC, GFR, ANEU, BMP, ADIFF #### [address] [address] CO2 [Moles/Vol] 19 mmol/L Low 22-32 [facility] Comment on above: Performed By: #### C BC, GFR, ANEU, BMP, ADIFF #### [address] [address] Creatinine [Mass/Vol] 5.86 mg/dL High 0.60-1.40 [facility] Comment on above: Result Comment: Test ing performed on [email or web address] analyzer using enzymatic creatinine methodology. Performed By: #### C BC, GFR, ANEU, BMP, ADIFF #### [address] [address] Electrolyte Balance 7.0 mEq/L Normal 4.0-15.0 [facility] MA[facility] Comment on above: Performed By: #### C BC, GFR, ANEU, BMP, ADIFF #### [address] [address] Globulin 5.1 G/dL High 1.5-3.8 [facility] Comment on above: Performed By: #### C BC, GFR, ANEU, BMP, ADIFF #### [address] [address] Glucose [Mass/Vol] 270 mg/dL High 70-110 [facility] Comment on above: Performed By: #### C BC, GFR, ANEU, BMP, ADIFF #### [address] [address] Potassium [Moles/Vol] 7.2 mmol/L Critically abnormal 3.5-5.0 [facility] Comment on above: Performed By: #### C BC, GFR, ANEU, BMP, ADIFF #### [address] [address] Sodium [Moles/Vol] 137 mmol/L Normal 136-145 [facility] Comment on above: Performed By: #### C BC, GFR, ANEU, BMP, ADIFF #### [address] [address] Total Protein 7.2 G/dL Normal 5.7-8.2 [facility] Comment on above: Performed By: #### C BC, GFR, ANEU, BMP, ADIFF #### [place] [phone] Urea nitrogen [Mass/Vol] 54.0 mg/dL High 8.0-22.0 [facility] Comment on above: Performed By: #### C BC, GFR, ANEU, BMP, ADIFF #### [place] [phone] Albumin Level 2.1 G/dL Low 3.2-4.8 [facility] Comment on above: Performed By: #### C BC, GFR, ANEU, BMP, ADIFF #### [place] [phone] Albumin/Globulin [Mass ratio] 0.4 {ratio} Low 0.9-1.6 [facility] Comment on above: Performed By: #### C BC, GFR, ANEU, BMP, ADIFF #### [place] [address] ALP [Catalytic activity/Vol] 144 U/L High 38-126 [facility] Comment on above: Performed By: #### C BC, GFR, ANEU, BMP, ADIFF #### [place] [address] ALT [Catalytic activity/Vol] 12 U/L Normal 12-55 [facility] Comment on above: Performed By: #### C BC, GFR, ANEU, BMP, ADIFF #### [place] [phone] AST [Catalytic activity/Vol] 17 U/L Normal 8-34 [facility] Comment on above: Performed By: #### C BC, GFR, ANEU, BMP, ADIFF #### [place] [phone] Bili Total 0.20 mg/dL Normal 0.20-1.20 [facility] Comment on above: Result Comment: Use of this assay is not recommended for patients undergoing treatment with eltrombopag due to the potential for falsely elevated results. Performed By: #### C BC, GFR, ANEU, BMP, ADIFF #### [address] [address] BUN/Creatinine Ratio 9.4 ratio Low 10.0-22.0 [facility] Comment on above: Performed By: #### C BC, GFR, ANEU, BMP, ADIFF #### [address] [address] Calcium [Mass/Vol] 8.3 mg/dL Low 8.7-10.4 [facility] Comment on above: Performed By: #### C BC, GFR, ANEU, BMP, ADIFF #### [address] [address] Chloride [Moles/Vol] 111 mmol/L High 98-110 [facility] Comment on above: Performed By: #### C BC, GFR, ANEU, BMP, ADIFF #### [address] [address] CO2 [Moles/Vol] 17 mmol/L Low 22-32 [facility] Comment on above: Performed By: #### C BC, GFR, ANEU, BMP, ADIFF #### [address] [address] Creatinine [Mass/Vol] 5.86 mg/dL High 0.60-1.40 [facility] Comment on above: Result Comment: Test ing performed on [email or web address] analyzer using enzymatic creatinine methodology. Performed By: #### C BC, GFR, ANEU, BMP, ADIFF #### [address] [address] Electrolyte Balance 10.0 mEq/L Normal 4.0-15.0 [facility] Comment on above: Performed By: #### C BC, GFR, ANEU, BMP, ADIFF #### [address] [address] Globulin 5.4 G/dL High 1.5-3.8 [facility] Comment on above: Performed By: #### C BC, GFR, ANEU, BMP, ADIFF #### [address] [address] Glucose [Mass/Vol] 235 mg/dL High 70-110 [facility] Comment on above: Performed By: #### C BC, GFR, ANEU, BMP, ADIFF #### [place] [phone] Potassium [Moles/Vol] 7.1 mmol/L Critically abnormal 3.5-5.0 [facility] Comment on above: Performed By: #### C BC, GFR, ANEU, BMP, ADIFF #### [place] [phone] Sodium [Moles/Vol] 138 mmol/L Normal 136-145 [facility] Comment on above: Performed By: #### C BC, GFR, ANEU, BMP, ADIFF #### [place] [id number] Total Protein 7.5 G/dL Normal 5.7-8.2 [facility] Comment on above: Performed By: #### C BC, GFR, ANEU, BMP, ADIFF #### [place] [phone] Urea nitrogen [Mass/Vol] 55.0 mg/dL High 8.0-22.0 [facility] Comment on above: Performed By: #### C BC, GFR, ANEU, BMP, ADIFF #### [place] [address] HEPACon 02-10-2025 [facility] Performed By: #### H EPAC #### [place] [address] Hep A IgM Ab Int Normal [facility] MA[facility] Comment on above: Result Comment: No s erological evidence of a current Hepatitis A infection. See Interp Performed By: #### H EPAC #### [place] [address] Hep B Core IgM Ab Non-Reactive Normal Non-Reacti [facility] MAIN Comment on above: Performed By: #### H EPAC #### [place] [id number] Hep B Core IgM Ab Int Normal [facility] Comment on above: Result Comment: Samp les with a value < 0.80 Index are considered nonreactive (negative) for IgM antibodies to hepatitis B core antigen. See Interp Performed By: #### H EPAC #### [place] [address] Hep B Surf Ag Non-Reactive Normal Non-Reacti [facility] MAIN Comment on above: Performed By: #### H EPAC #### [place] [address] Hep C Ab Non-Reactive Normal Non-Reacti [facility] MAIN Comment on above: Performed By: #### H EPAC #### [place] [address] Hep C Ab Int [facility] MAIN Comment on above: Result Comment: Nonr eactive: Samples with a value < 0.80 are considered nonreactive (negative) for antibodies to HCV. A negative test result does not exclude the possibility of exposure to or infection with HCV. HCV antibodies may be undetectable in some stages of the infection and in some clinical conditions. See Interp Performed By: #### H EPAC #### [place] [address] [place] 02-10-2025 Potassium [Moles/Vol] 7.1 mmol/L Critically abnormal 3.5-5.0 [facility] MAIN Comment on above: Performed By: #### K #### [place] [address] Potassium [Moles/Vol] 7.1 mmol/L Critically abnormal 3.5-5.0 [facility] Comment on above: Performed By: #### C BC, GFR, ANEU, BMP, ADIFF #### [place] [address] LABORATORYOrdered By: Trena Vilchis on 02-10-2025 Blood Glucose Interventions Administered agent to decrease blood sugar (02/10/25 11:20 AM) [facility] Work Phone: LABORATORYOrdered By: Yadira Paulino on 02-10-2025 HAV IgM IA Ql Non-Reactive (02/10/25 10:34 AM) Normal Non-Reacti ve AH ADM SS HAV IgM IA Ql No [...] AM) Invalid Interpretation Code AH Workflow SS AST [Catalytic activity/Vol] 17 U/L [...] Glucose [Mass/Vol] 197 mg/dL Invalid Interpretation Code Auto Chem SS Comment on above: Interpretive Data: E stimated average glucose (eAG) is a calculated value from Hemoglobin A1C and is parts representative of the average blood glucose level in the last 2-3 month period. Normal range: less than 114 mg/dL HbA1c (Bld) [Mass fraction] 8.5 % High 4.0 - 6.0 % Auto Chem SS Hypochromia Ql (Bld) 1+ *NA* (02/10/25 4:55 AM) Invalid Interpretation Code AH Workflow SS Magnesium [Mass/Vol] 1.9 mg/dL Normal 1.6 - 2 .4 mg/dL ADM SS Microcytes Ql (Bld) 1+ *NA* (02/10/25 4:55 AM) Invalid Interpretation Code AH Workflow SS Ovalocytes LM Ql (Bld) 1+ *NA* (02/10/25 4:55 AM) Invalid Interpretation Code AH Workflow SS Phosphate [Mass/Vol] 9.1 mg/dL Invalid Interpretation Code 2.4 - 5.1 mg/dL ADM SS Comment on above: Interpretive Data: * *Note - New Reference Range in effect 20 Platelets LM Ql (Bld) Normal *NA* (02/10/25 4:55 AM) Invalid Interpretation Code AH Workflow SS Poikilocytosis LM Ql (Bld) 1+ *NA* (02/10/25 4:55 AM) Invalid Interpretation Code AH Workflow SS Protein [Mass/Vol] 7.5 G/dL Normal 5.7 - 8.2 G/dL ADM SS LABORATORYOrdered By: Arun enciso on 02-10-2025 Cholesterol [Mass/Vol] 94 mg/dL Normal 50 - 199 mg/dL ADM SS Comment on above: Interpretive Data: C holesterol Reference Interval: Less than 200 Desirable 200-239 Borderline high risk 240 and above High risk Cholesterol in HDL [Mass/Vol] 35 mg/dL Low 40 - 59 mg/dL ADM SS Cholesterol in LDL [Mass/Vol] 46 mg/dL Normal 0 - 129 mg/dL ADM SS Triglyceride [Mass/Vol] 67 mg/dL Normal 3 - 149 mg/dL ADM SS LABORATORYOrdered By: Benja Glover on 02-10-2025 Blood Glucose Interventions Administered agent to decrease blood sugar (02/10/25 3:42 AM) [facility] Work Phone: LIPIDon 02-10-2025 Cholesterol [Mass/Vol] 94 mg/dL Normal 50-199 [facility] Comment on above: Result Comment: Chol esterol Reference Interval: Less than 200 Desirable 200-239 Borderline high risk 240 and above High risk Performed By: #### C BC, GFR, ANEU, BMP, ADIFF #### [address] [address] Cholesterol in HDL [Mass/Vol] 35 mg/dL Low 40-59 [facility] Comment on above: Performed By: #### C BC, GFR, ANEU, BMP, ADIFF #### [address] [address] Cholesterol in LDL [Mass/Vol] 46 mg/dL Normal 0-129 [facility] Comment on above: Performed By: #### C BC, GFR, ANEU, BMP, ADIFF #### [address] [address] Triglyceride [Mass/Vol] 67 mg/dL Normal 3-149 [facility] Comment on above: Performed By: #### C BC, GFR, ANEU, BMP, ADIFF #### [address] [address] MGon 02-10-2025 Magnesium [Mass/Vol] 1.9 mg/dL Normal 1.6-2.4 [facility] Comment on above: Performed By: #### C BC, GFR, ANEU, BMP, ADIFF #### [address] [address] PHOSon 02-10-2025 Phosphate [Mass/Vol] 9.1 mg/dL Critically abnormal 2.4-5.1 [facility] Comment on above: Result Comment: No te - New Reference Range in effect 20 Performed By: #### C BC, GFR, ANEU, BMP, ADIFF #### [address] [address] US RENALon 02-10-2025 US RENAL ORIGINAL EXAMINATION: [...] Date: 02/10/2025 6:52:46 AM Ordering Provider: MARTÍN Puga [facility] XR CHEST 1 VIEWon 02-10-2025 XR CHEST [...] Lina Armando MD Preliminary Report By: Lina Aramndo MD Electronically signed By Lina Armando MD Dictated Date: 02/10/2025 6:47:44 AM Prelim Date: 02/10/2025 6:48:10 AM Sign Date: 02/10/2025 6:48:10 AM Ordering Provider: MARTÍN KEY [facility] .GFRon 02-09-2025 Estimated Glomerular Filtration Rate 10 ml/min/1.73sqm [facility] Comment on above: Result Comment: Stages of [...] Performed By: #### C VFLURV #### [address] [address] .MDWon 02-09-2025 Monocyte Distribution Width 17.38 Normal 0.00-20.00 [facility] Comment on above: Result Comment: For ED adult patients suspected of sepsis, MDW<=20.0 does not rule out sepsis or risk of sepsis Performed By: #### G FR, PBNP, MDW, DIFF, CBC, MG, BMP, MORPH, TROPHS, DIMER #### [address] [address] .Manual Diffon 02-09-2025 Basophil %, Manual 0.0 % Normal 0.0-2.5 [facility] Comment on above: Performed By: #### G FR, PBNP, MDW, DIFF, CBC, MG, BMP, MORPH, TROPHS, DIMER #### [address] [address] Basophil, Abs Manual 0.0 10 3/mcL Normal 0.0-0.2 [facility] Comment on above: Performed By: #### G FR, PBNP, MDW, DIFF, CBC, MG, BMP, MORPH, TROPHS, DIMER #### [address] [address] Eosinophil %, Manual 5.0 % Normal 0.0-7.0 [facility] Comment on above: Performed By: #### G FR, PBNP, MDW, DIFF, CBC, MG, BMP, MORPH, TROPHS, DIMER #### [address] [address] Eosinophil, Abs Manual 0.4 10 3/mcL Normal 0.0-0.7 [facility] Comment on above: Performed By: #### G FR, PBNP, MDW, DIFF, CBC, MG, BMP, MORPH, TROPHS, DIMER #### [address] [address] Lymphocyte %, Manual 12.0 % Low 20.0-40.0 [facility] Comment on above: Performed By: #### G FR, PBNP, MDW, DIFF, CBC, MG, BMP, MORPH, TROPHS, DIMER #### [address] [address] Lymphocyte, Abs Manual 0.8 10 3/mcL Low 0.9-4.3 [facility] Comment on above: Performed By: #### G FR, PBNP, MDW, DIFF, CBC, MG, BMP, MORPH, TROPHS, DIMER #### [address] [address] Monocyte %, Manual 6.0 % Normal 2.0-13.0 [facility] Comment on above: Performed By: #### G FR, PBNP, MDW, DIFF, CBC, MG, BMP, MORPH, TROPHS, DIMER #### [address] [address] Monocyte, Abs Manual 0.4 10 3/mcL Normal 0.1-1.4 [facility] Comment on above: Performed By: #### G FR, PBNP, MDW, DIFF, CBC, MG, BMP, MORPH, TROPHS, DIMER #### [address] [address] Neutrophil %, Manual 77.0 % High 50.0-75.0 [facility] Comment on above: Performed By: #### G FR, PBNP, MDW, DIFF, CBC, MG, BMP, MORPH, TROPHS, DIMER #### [address] [address] Neutrophil, Abs Manual 5.5 10 3/mcL Normal 2.3-8.1 [facility] Comment on above: Performed By: #### G FR, PBNP, MDW, DIFF, CBC, MG, BMP, MORPH, TROPHS, DIMER #### [address] [address] Nucleated RBC 0.0 /100 WBC Normal [facility] Comment on above: Performed By: #### G FR, PBNP, MDW, DIFF, CBC, MG, BMP, MORPH, TROPHS, DIMER #### [address] [address] .Morphon 02-09-2025 Anisocytosis Ql (Bld) 2+ Normal [facility] Comment on above: Performed By: #### G FR, PBNP, MDW, DIFF, CBC, MG, BMP, MORPH, TROPHS, DIMER #### [address] [address] Ovalocytes 1+ Normal [facility] Comment on above: Performed By: #### G FR, PBNP, MDW, DIFF, CBC, MG, BMP, MORPH, TROPHS, DIMER #### [address] [address] Platelet Estimate Normal Normal [facility] Comment on above: Performed By: #### G FR, PBNP, MDW, DIFF, CBC, MG, BMP, MORPH, TROPHS, DIMER #### [address] [address] Poik 1+ Normal [facility] Comment on above: Performed By: #### G FR, PBNP, MDW, DIFF, CBC, MG, BMP, MORPH, TROPHS, DIMER #### [address] [address] .Urinalysis Microscopic (AO) on 02-09-2025 UA RBC 5-10 Abnormal None Seen [facility] Comment on above: Performed By: #### U A, UAMICAO #### [place] [id number] UA Squam Epithelial 0-5 Abnormal None Seen [facility] Comment on above: Performed By: #### U A, UAMICAO #### [place] [id number] UA WBC LOADED Abnormal None Seen [facility] Comment on above: Performed By: #### U A, UAMICAO #### [address] [address] BMPon 02-09-2025 BUN/Creatinine Ratio 9 ratio Normal 7-27 [facility] Comment on above: Performed By: #### C VFLURV #### [address] [address] Calcium [Mass/Vol] 8.0 mg/dL Low 8.4-10.2 [facility] Comment on above: Performed By: #### C VFLURV #### [address] [address] Chloride [Moles/Vol] 107 mmol/L Normal 98-107 [facility] Comment on above: Performed By: #### C VFLURV #### [address] [address] CO2 [Moles/Vol] 20 mmol/L Low 22-29 [facility] Comment on above: Performed By: #### C VFLURV #### [address] [address] Creatinine [Mass/Vol] 6.19 mg/dL High 0.70-1.30 [facility] Comment on above: Result Comment: Test ing performed on [employer] Dimension EXL analyzer using a modified kinetic Vickie technique. Performed By: #### C VFLURV #### [address] [address] Electrolyte Balance 10.0 mEq/L Normal 4.0-15.0 [facility] Comment on above: Performed By: #### C VFLURV #### [address] [address] Glucose [Mass/Vol] 220 mg/dL High 70-105 [facility] Comment on above: Performed By: #### C VFLURV #### [address] [address] Potassium [Moles/Vol] 7.9 mmol/L Critically abnormal 3.5-5.1 [facility] Comment on above: Performed By: #### C VFLURV #### [place] [id number] Sodium [Moles/Vol] 137 mmol/L Normal 136-145 [facility] Comment on above: Performed By: #### C VFLURV #### [place] [id number] Urea nitrogen [Mass/Vol] 57 mg/dL High 7-18 [facility] Comment on above: Performed By: #### C VFLURV #### [address] [address] CBCon 02-09-2025 Erythrocyte distribution width (RBC) [Ratio] 25.9 % High 11.5-15.5 [facility] Comment on above: Performed By: #### G FR, PBNP, MDW, DIFF, CBC, MG, BMP, MORPH, TROPHS, DIMER #### [address] [address] Hematocrit (Bld) [Volume fraction] 28.4 % Low 40.0-52.0 [facility] Comment on above: Performed By: #### G FR, PBNP, MDW, DIFF, CBC, MG, BMP, MORPH, TROPHS, DIMER #### [place] [id number] Hgb 9.0 G/dL Low 13.0-17.5 [facility] Comment on above: Performed By: #### G FR, PBNP, MDW, DIFF, CBC, MG, BMP, MORPH, TROPHS, DIMER #### [place] [address] [place], [place] [address] MCH (RBC) [Entitic mass] 24.5 pg Low 27.0-33.0 [facility] Comment on above: Performed By: #### G FR, PBNP, MDW, DIFF, CBC, MG, BMP, MORPH, TROPHS, DIMER #### [place] [address] [place], [place] [address] MCHC 31.8 G/dL Low 32.0-36.0 [facility] Comment on above: Performed By: #### G FR, PBNP, MDW, DIFF, CBC, MG, BMP, MORPH, TROPHS, DIMER #### [address] [address] MCV (RBC) [Entitic vol] 76.9 fL Low 81.0-100.0 [facility] Comment on above: Performed By: #### G FR, PBNP, MDW, DIFF, CBC, MG, BMP, MORPH, TROPHS, DIMER #### [place] [address] [place], [place] [address] Platelet 225 10 3/mcL Normal 150-450 [facility] Comment on above: Performed By: #### G FR, PBNP, MDW, DIFF, CBC, MG, BMP, MORPH, TROPHS, DIMER #### [address] [address] Platelet mean volume (Bld) [Entitic vol] 7.8 fL Normal 6.4-10.5 [facility] Comment on above: Performed By: #### G FR, PBNP, MDW, DIFF, CBC, MG, BMP, MORPH, TROPHS, DIMER #### [address] [address] RBC 3.70 10 6/mcL Low 4.50-6.00 [facility] Comment on above: Performed By: #### G FR, PBNP, MDW, DIFF, CBC, MG, BMP, MORPH, TROPHS, DIMER #### [place] [address] [place] [address] WBC 7.1 10 3/mcL Normal 4.5-10.8 [facility] Comment on above: Performed By: #### G FR, PBNP, MDW, DIFF, CBC, MG, BMP, MORPH, TROPHS, DIMER #### [place] [address] CVFLURVon 02-09-2025 FLU A PCR Negative Normal Negative [facility] Comment on above: Performed By: #### C VFLURV #### [place] [address] FLU B PCR Negative Normal Negative [facility] Comment on above: Performed By: #### C VFLURV #### [place] [address] RSV PCR Negative Normal Negative [facility] Comment on above: Performed By: #### C VFLURV #### [place] [address] SARS-CoV-2 (COVID-19) RNA MAZIN+probe Ql (Unsp spec) Negative Normal Negative [facility] Comment on above: Result Comment: Resu lts [...] Performed By: #### C VFLURV #### [address] [address] DIMERon 02-09-2025 D-Dimer 374 ng/mL D-DU High 0-230 [facility] Comment on above: Result Comment: Resu lts [...] MG, BMP, MORPH, TROPHS, DIMER #### [address] [address] [place]ainer 02-09-2025 Potassium [Moles/Vol] 6.4 mmol/L Critically abnormal 3.5-5.1 [facility] Comment on above: Performed By: #### C VFLURV #### [address] [address] Potassium [Moles/Vol] 6.4 mmol/L Critically abnormal 3.5-5.1 [facility] Comment on above: Performed By: #### K #### [address] [address] MGon 02-09-2025 Magnesium [Mass/Vol] 2.0 mg/dL Normal 1.8-2.4 [facility] Comment on above: Performed By: #### C VFLURV #### [address] [address] PBNPon 02-09-2025 Natriuretic peptide B (Bld) [Mass/Vol] 39[address] pg/mL High 0-125 [facility] Comment on above: Result Comment: NT-p roBNP results of less than 300 pg/mL effectively rules out acute congestive heart failure with 99% negative predictive value. Performed By: #### C VFLURV #### [place] [address] TROPHSon 02-09-2025 High Sensitivity Troponin I 19 ng/L Normal 0-76 [facility] Comment on above: Result Comment: High Sensitive Troponin I Reference Ranges: Female: 0-51 ng/L Male: 0-76 ng/L Testing performed on [employer] using a homogeneous sandwich chemiluminescent immunoassay based on [employer] technology. Performed By: #### C VFLURV #### [place] [address] UAon 02-09-2025 Color (U) Yellow Normal [facility] Comment on above: Performed By: #### U A, UAMICAO #### [place] [address] Glucose (U) [Mass/Vol] 250 mg/dL Abnormal Negative [facility] Comment on above: Performed By: #### U A, UAMICAO #### [place] [address] Ketones Ql (U) Negative Normal Negative [facility] Comment on above: Performed By: #### U A, UAMICAO #### [place] [address] UA Appear Clear Normal Clear [facility] Comment on above: Performed By: #### U A, UAMICAO #### [place] [id number] UA Blood Large Abnormal Negative [facility] Comment on above: Performed By: #### U A, UAMICAO #### [place] [address] UA Leuk Est Small Abnormal Negative [facility] Comment on above: Performed By: #### U A, UAMICAO #### [address] [address] UA Nitrite Negative Normal Negative [facility] Comment on above: Performed By: #### U A, UAMICAO #### [address] [address] UA pH 6.5 Normal 5.0 - 8.0 [facility] Comment on above: Performed By: #### U A, UAMICAO #### [address] [address] UA Protein >=300 Abnormal Negative [facility] Comment on above: Performed By: #### U A, UAMICAO #### [address] [address] UA Spec Grav >=1.030 Abnormal 1.015-1.02 5 [facility] Comment on above: Performed By: #### U A, UAMICAO #### [address] [address] UA Specimen Type Clean Catch Normal [facility] Comment on above: Performed By: #### U A, UAMICAO #### [address] [address] UA Urobilinogen 0.2 E.U./dL Normal 0.2-1.0 [facility] Comment on above: Performed By: #### U A, UAMICAO #### [address] [address] Urobilinogen (U) [Mass/Vol] Negative Normal Negative [facility] Comment on above: Performed By: #### U A, UAMICAO #### [address] [address] XR CHEST 1 VIEWon 02-09-2025 XR CHEST [...] 02/09/2025 8:17:46 PM Ordering Provider: JIMENA HOGAN [facility] 02-05-2025 36 Noted. Agree with disposition. [facility] 36 S: Patient spoke wit h [facility] nurse regarding trouble breathing at night. B: [...] or WORSE than normal Protocols used: Breathing Eeiuhznkss-OMFCC-ES [facility] 01-29-2025 36 Rx sent [facility] 3601-28-2025 36 Called patient and l eft detailed VM about message below. Advised to call office with any questions. [facility] 36 Please let patient k now that the wound culture from the office is growing staph. Will send Bactrim Rx to his pharmacy for 10 days [facility] [id number] 01-27-2025 [id number] 09-22-24 CSMA Gabapentin Normal S [facility] 36on 01-27-2025 36 Rx sent, OARRS repor t done, no inconsistencies, CS agreement in place [facility] 36on 01-26-2025 36 Spoke to pts ab out upcoming PAT 02/19/2025 and Surgery 02/26/2025 at [facility] Doctor: Prince PAT (arrive 15 min early): 02/19/2025 2:00 PM [...] counter vitamins 3 days prior to surgery [facility] 36 Lvm to discuss upcom ing PAT and surgery as well as instructions [facility] Office Visiton 01-22-2025 Follow-up visit [id number] Gurinder Hahn 1975 M Date Provider Department Center 01/22/2025 [id number] MORRISON URO BAR None Family History Adopted: Yes Problem Relation Age of Onset No Known Problems Mother High Blood Pressure Father Heart disease Father COPD Father Diabetes Father Family Status - Relation Status Age at Mother Father Level of Service:83043 [place] OFFICE/OUTPATIENT ESTABLISHED [facility] 30 MIN Reason for Visit and Comments: Other [0] - 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 looks like snot dripping from the fistula - Gross hematuria - Chronic renal disease, stage IV, pt c/o odor in the groin [facility] Progress Noteon 01-22-2025 Progress Note Jose Morrison [...] gangrene Unable to locate operative reports from [facility] to determine exactly what was done [...] Nephro referral 09/17/24 progress note wound care ([facility]) - reported Claire's back in March 2024 requiring multiple debridement and ICU stay, reported to have had a catheter at rehab but removed it himself, started to notice leakage of urine from somewhere besides penis 04/16/24 presented to [facility] - 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 [facility] Progress Note We want to inform spike chu that your patient's blood pressure was noted to be elevated in our office today. We thank you for trusting us with your patient's health. Last BP: BP Readings from Last 3 Encounters: 01/22/25 (!) 215/128 12/09/24 139/73 09/22/24 138/86 [facility] Progress Note Please contact Isai and see if he can come in for a blood pressure check [facility] 36on 01-05-2025 36 Reviewed chart. Refi ll not appropriate, too soon. RX refused [facility] 36 Prescription Request : Last medication check: 09/22/24 Last physical exam: none Next scheduled appointment: 02/02/25 CSA 09/22/24 Last date of refill on this medication 12/29/24 [facility] 36on 12-30-2024 36 Lisset called in to cancel 12/30/24 appt in [place] león/DR Morrison states the patient isn't feeling well. Appt was already cancelled through mychart. No rescheduling at this time. [facility] [id number] 12-29-2024 [id number] 09-22-24 CSMA Gabapentin Normal S [facility] 36on 12-29-2024 36 See [facility] 36 Rx re-sent since pharmacy is stating they do not have refill on file. OARRS report reviewed with no discrepancies. CSA signed in September 2024. [facility] 36 Spoke with [facility], states they do not have an active prescription on file for him. States the last one they have is from 11/21. Please send in new script. Thank you! [place] [address] Name of caller: Gurinder Contact phone number: [phone] Relationship to Patient: patient Provider: Jair Practice: [...] business hours to return their call: Yes [facility] 36 Refill not due at th is time. [place] [address] Refill not due at th is time. [facility] 36 Sent 12/22/2024 please refuse. [facility] 36 Duplicate please refuse. [place] [address] Not due for refill a t this time. [place] [address] Melatonin and Tyleno l just sent on 12/22/2024 Rosuvastatin sent on 09/24/2024 for 90 days w/1 refill [facility] 36on 12-24-2024 36 Lisset called in stat ing she needs to cancel the patient's appt today 12/24/24 11:50 AM [place] w/DR Morrison. R/S now 12/30/24 9:40 AM w/DR Morrison in [place]. [place] [address] Will discuss at his visit today. [place] [address]on 12-22-2024 36 Rx sent. Follow up a s scheduled. [facility] 36 Rx sent. Follow up a s scheduled. [place] [address] Prescription Request : Last medication check: 09/22/24 Last physical exam: none Next scheduled appointment: 12/24/24 Last date of refill on this medication 10/27/24 60 tablets no refill Normal [facility] 36 Prescription Request : Last medication check: 09/22/24 Last physical exam: none Next scheduled appointment: 12/24/24 Last date of refill on this medication 11/20/24 30 and no refill [facility] 36on 12-16-2024 36 Pts gf called in to r/s appt on 12/18. He is now scheduled 12/24/[address] Morrison in [facility] 36on 12-15-2024 36 Rx sent with a start date of 12/22/24 based on fill date in OARRS. OARRS report reviewed with no discrepancies. CSA signed in September 2024. 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 - Gross hematuria- Chronic renal disease, stage IV (HCC) [facility] 36 Prescription Request : Last medication check: 09/22/24 Last physical exam: 01/08/23 Next scheduled appointment: 12/24/24 Csa 09/22/24 Uds none Last date of refill on this medication 11/21/24 30 and no refill [facility] Office Visiton 12-09-2024 Follow-up visit [id number] Gurinder Hahn 1975 M Date Provider Department Center 12/09/2024 [id number] VELASQUEZ [facility] None Family History Adopted: Yes Problem Relation Age of Onset No Known Problems Mother High Blood Pressure Father Heart disease Father COPD Father Diabetes Father Family Status - Relation Status Age at Mother Father Level of Service:24785 [place] OFFICE/OUTPATIENT NEW MODERATE MDM 45 MINUTES Reason for Visit and Comments: New Patient [542] - had sepsis and gangrene in testicle area, now has an open spot that urine is coming thru, urethral erosion, green discharge [facility] Progress Noteon 12-09-2024 Progress Note Ceci Quiroz [...] with Claire's gangrene. He was seen at [facility] in [place] and was transferred to [facility] in [place] and underwent extensive surgical debridement for Claire's [...] Medical History: Diagnosis Date Acute respiratory failure ([facility]) Acute vomiting 05/26/2021 Atrial fibrillation ([facility]) GERD (gastroesophageal reflux disease) Gout Hyperglycemia Hyperlipidemia Hypertension Necrotizing fasciitis ([facility]) 09/22/2024 Osteoarthritis Sepsis ([facility]) Sepsis, unspecified organism ([facility]) 06/30/2024 Type 2 diabetes mellitus without complication ([facility]/H[facility]) ([facility]) UTI symptoms 01/13/2021 Weight loss 07/17/2022 Past [...] 08/13/23 Yes MOIRA Peralta CNP Continuous Glucose Plating Inspector (FreeStyle Yanni 3 [place]) device Use as directed 09/22/24 Yes MOIRA [...] a day 11/06/24 Yes Artie Jackson MD Lantus SoloStar 100 UNIT/ML pen inject 16 units [...] every evening befo (more content not included)... [address] [address] 12-08-2024 36 Rx sent. Follow up a s scheduled. [place] [id number] Prescription Request : Last medication check: 09/22/2024 Last physical exam: none Next scheduled appointment: 12/24/2024 Last date of refill on this medication: 04/02/[address] 11-25-2024 36 Can we get an appointment scheduled for his diabetes management and I can address with them at his appointment. [address] 11-24-2024 36 Pts so called in to r/s appt. He is now scheduled 12/09/[address] 11-21-2024 [address] 11-20-2024 36 Reviewed chart. Refi ll appropriate. RX sent. [place] [id number] Prescription Request : Last medication check: 09/22/24 Last physical exam: none Next scheduled appointment: none Last date of refill on this medication 10/29/24 30 and no refill [address] 11-06-2024 36 Refill not due for another couple of weeks. [place] [id number] Prescription Request : Last medication check: 09/22/24 Last physical exam: none Next scheduled appointment: 11/17/24 CSA on file (date): 09/22/24 Last urine drug screen: none Last date of refill on this medication 10/20/24 30 and no refill [facility] 36 Rx sent [place] [id number] Prescription Request : Last medication check: 09/22/24 Last physical exam: 2020 Next scheduled appointment: 11/17/24 Last date of refill on this medication 09/23/24 100 strips and 1 refill [facility] 36on 10-29-2024 36 Refill not appropriate. Normal [facility] 36 Sent in 1 week ago. [facility] 36on 10-27-2024 36 Noted. Rx sent. Normal [facility] 36 I do not see where w e have ever prescribed this medication for him. Recommend getting this from the managing provider. [place] [id number] Rx sent. Follow up a s scheduled. [facility] 36 Prescription Request : Last medication check: 09/22/24 Last physical exam: none Next scheduled appointment: 11/17/24 Last date of refill on this medication: 09/22/24 [place] [id number] Prescription Request : Last medication check: 09/22/24 Last physical exam: none Next scheduled appointment: 11/17/24 Last date of refill on this medication: not found [place] [id number] Should not need a re fill of his device. [place] [phone] Prescription Request : Last medication check: 09/22/24 Last physical exam: 06/22/21 Next scheduled appointment: 11/17/24 Last date of refill on this medication 09/22/24 1 and no refill [place] [address] 10-24-2024 36 Noted. [facility] 36on 10-21-2024 36 Patient confirmed Patient appointment on Sunday11/25/2024. [place] [phone] Preferred contact number: [phone] Reason for Visit: New Patient 10-21-[address] Velasquez cancelled due to transportation issues. Please call to reschedule accordingly Urgency of Appointment: New Patient Medications in need of refill: NA [facility] 36on 09-26-2024 36 Spoke to patient, he will see when his roommate can bring him in for the recheck and call back to schedule. [facility] 36 ----- Message from MOIRA Alcaraz CNP sent at 09/26/2024 6:48 AM EST ----- Urine protein is high. Follow up with nephrology as directed. Normal [facility] 36on 09-24-2024 36 Sig adjusted for Jesus tus [...] placed for FIT test and repeat CBC. Normal [facility] 36on 09-23-2024 36 Spoke to patient, [...] urine protein and urinalysis and culture. Normal [facility] 37on 09-22-2024 37 Please obtain echocardiogram result from [place]. Normal [facility] Office Visiton 09-22-2024 Follow-up visit [id number] Gurinder Hahn 1975 M Date Provider Department Center 09/22/2024 [id number] [facility] Family History Adopted: Yes Problem Relation Age of Onset No Known Problems Mother High Blood Pressure Father Heart disease Father COPD Father Diabetes Father Family Status - Relation Status Age at Mother Father Level of Service:54508 [place] OFFICE/OUTPATIENT ESTABLISHED MOD MDM 30 MIN Reason for Visit and Comments: Blood Work [220699] Health Maintenance [872] - Echo- had done in the hospital Flu- declines Hiv/Hep C screen- declines Crcs- declines PNA- declines Dm Dental- not done Hep A- declines Covid- not done Care Management [875] Normal [facility] Progress Noteon 09-22-2024 Progress Note Patient verified by last name and . [facility] Progress Note Patient Gurinder Hahn 49 y.o. [...] was 7.6% on 07/14/24. Was in the senior care for about 4-5 months and has been [...] following up with wound care center in [place] every 2 weeks and has been packing [...] No Trans (more content not included)... Normal [facility] 36on 09-11-2024 36 Reviewed chart. Refi ll appropriate. RX sent. [facility] 36 Prescription Request : Last medication check: 04/05/23 Last physical exam: none Next scheduled appointment: 09/22/24 Last date of refill on this medication 08/11/24 30 and no refill Normal [facility] .Auto Diffon 06-30-2024 Basophil, Absolute 0.1 10 3/mcL Normal 0.0-0.3 [facility] ([place]) Comment on above: Performed By: #### G FR, CBC, ADIFF, ANEU, CMP, MG ####[address] [address] Basophils/100 WBC (Bld) 0.9 % Normal 0.0-2.5 [facility] ([place]) Comment on above: Performed By: #### G FR, CBC, ADIFF, ANEU, CMP, MG ####[address] [address] Eosinophil, Absolute 0.3 10 3/mcL Normal 0.0-0.7 [facility] ([place]) Comment on above: Performed By: #### G FR, CBC, ADIFF, ANEU, CMP, MG ####[address] [address] Eosinophils/100 WBC (Bld) 3.2 % Normal 0.0-6.0 [facility] ([place]) Comment on above: Performed By: #### G FR, CBC, ADIFF, ANEU, CMP, MG ####[address] [address] Lymphocyte, Absolute 1.9 10 3/mcL Normal 0.9-4.3 [facility] ([place]) Comment on above: Performed By: #### G FR, CBC, ADIFF, ANEU, CMP, MG ####[address] [address] Lymphocytes/100 WBC (Bld) 23.7 % Normal 20.0-40.0 [facility] ([place]) Comment on above: Performed By: #### G FR, CBC, ADIFF, ANEU, CMP, MG ####[address] [address] Monocyte, Absolute 0.6 10 3/mcL Normal 0.1-1.4 [facility] ([place]) Comment on above: Performed By: #### G FR, CBC, ADIFF, ANEU, CMP, MG ####[address] [address] Monocytes/100 WBC (Bld) 7.8 % Normal 2.0-13.0 [facility] ([place]) Comment on above: Performed By: #### G FR, CBC, ADIFF, ANEU, CMP, MG ####[address] [address] Neutrophils/100 WBC (Bld) 64.4 % Normal 50.0-75.0 [facility] ([place]) Comment on above: Performed By: #### G FR, CBC, ADIFF, ANEU, CMP, MG ####[address] [address] .GFRon 06-30-2024 GFR 45 ml/min/1.73sqm Normal [facility] ([place]) Comment on above: Result Comment: GFR Population [...] G FR, CBC, ADIFF, ANEU, CMP, MG ####[place] [address] GFR Non- 37 ml/min/1.73sqm Normal [facility] ([place] Comment on above: Result Comment: GFR Population [...] G FR, CBC, ADIFF, ANEU, CMP, MG ####[place] [address] .NEUABSon 06-30-2024 Neutrophil, Absolute 5.2 10 3/mcL Normal 2.3-8.1 [facility] ([place]) Comment on above: Performed By: #### G FR, CBC, ADIFF, ANEU, CMP, MG ####[place] [address] .SMUSTon 06-30-2024 Smooth Muscle Ab Titer Pos 40 Normal [facility] ([place]) Comment on above: Result Comment: An A nti-smooth muscle antibody (ASMA) of 1:160 or greater isseen in approximately 80% of patients with HBSAG-neg ChronicActive Hepatitis (CAH). Low ASMA titers may be present inviral infections, malignancies and normal individuals. Performed By: #### G FR, [id number], DUANE, CMP, ANEU, ADIFF, CBC, PRO, SMUST, SMUSC, JOAQUIM, MG, HEPAC ####[place] [address] CBCon 06-30-2024 Erythrocyte distribution width (RBC) [Ratio] 20.5 % High 11.5-15.5 [facility] ([place]) Comment on above: Performed By: #### G FR, CBC, ADIFF, ANEU, CMP, MG ####[place] [address] Hematocrit (Bld) [Volume fraction] 27.0 % Low 40.0-52.0 [facility] ([place] Comment on above: Performed By: #### G FR, CBC, ADIFF, ANEU, CMP, MG ####[place] [address] Hgb 8.7 G/dL Low 13.0-17.5 [facility] ([place] Comment on above: Performed By: #### G FR, CBC, ADIFF, ANEU, CMP, MG ####[place] [address] MCH (RBC) [Entitic mass] 27.3 pg Normal 27.0-33.0 [facility] ([place]) Comment on above: Performed By: #### G FR, CBC, ADIFF, ANEU, CMP, MG ####[place] [address] MCHC 32.3 G/dL Normal 32.0-36.0 [facility] ([place] Comment on above: Performed By: #### G FR, CBC, ADIFF, ANEU, CMP, MG ####[place] [address] MCV (RBC) [Entitic vol] 84.5 fL Normal 81.0-100.0 [facility] ([place]) Comment on above: Performed By: #### G FR, CBC, ADIFF, ANEU, CMP, MG ####[place] [address] Platelet 303 10 3/mcL Normal 150-450 [facility] ([place]) Comment on above: Performed By: #### G FR, CBC, ADIFF, ANEU, CMP, MG ####[place] [address] Platelet mean volume (Bld) [Entitic vol] 8.0 fL Normal 6.4-10.5 [facility] ([place]) Comment on above: Performed By: #### G FR, CBC, ADIFF, ANEU, CMP, MG ####[place] [address] RBC 3.19 10 6/mcL Low 4.50-6.00 [facility] ([place]) Comment on above: Performed By: #### G FR, CBC, ADIFF, ANEU, CMP, MG ####[place] [address] WBC 8.0 10 3/mcL Normal 4.5-10.8 [facility] ([place] Comment on above: Performed By: #### G FR, CBC, ADIFF, ANEU, CMP, MG ####[place] [address] CMPon 06-30-2024 Albumin Level 1.6 G/dL Low 3.2-4.8 [facility] ([place]) Comment on above: Performed By: #### G FR, CBC, ADIFF, ANEU, CMP, MG ####[place] [address] Albumin/Globulin [Mass ratio] 0.3 {ratio} Low 0.9-1.6 [facility] ([place] Comment on above: Performed By: #### G FR, CBC, ADIFF, ANEU, CMP, MG ####[place] [address] ALP [Catalytic activity/Vol] 1437 U/L High 38-126 [facility] ([place] Comment on above: Performed By: #### G FR, CBC, ADIFF, ANEU, CMP, MG ####[place] [address] ALT [Catalytic activity/Vol] 129 U/L High 12-55 [facility] ([place] Comment on above: Performed By: #### G FR, CBC, ADIFF, ANEU, CMP, MG ####[place] [address] AST [Catalytic activity/Vol] 101 U/L High 8-34 [facility] ([place] Comment on above: Performed By: #### G FR, CBC, ADIFF, ANEU, CMP, MG ####[address] [address] Bili Total 0.40 mg/dL Normal 0.20-1.20 [facility] ([place]) Comment on above: Result Comment: Use of this assay is not recommended for patients undergoing treatment with eltrombopag due to the potential for falsely elevated results. Performed By: #### G FR, CBC, ADIFF, ANEU, CMP, MG ####[address] [address] BUN/Creatinine Ratio 16.0 ratio Normal 10.0-22.0 [facility] ([place]) Comment on above: Performed By: #### G FR, CBC, ADIFF, ANEU, CMP, MG ####[address] [address] Calcium [Mass/Vol] 8.2 mg/dL Low 8.7-10.4 On license of [facility] ([place]) Comment on above: Performed By: #### G FR, CBC, ADIFF, ANEU, CMP, MG ####[address] [address] Chloride [Moles/Vol] 107 mmol/L Normal 98-110 [facility] ([place] Comment on above: Performed By: #### G FR, CBC, ADIFF, ANEU, CMP, MG ####[address] [address] CO2 [Moles/Vol] 24 mmol/L Normal 22-32 [facility] ([place] Comment on above: Performed By: #### G FR, CBC, ADIFF, ANEU, CMP, MG ####[address] [address] Creatinine [Mass/Vol] 1.94 mg/dL High 0.60-1.40 [facility] ([place]) Comment on above: Performed By: #### G FR, CBC, ADIFF, ANEU, CMP, MG ####[address] [address] Electrolyte Balance 4.0 mEq/L Normal 4.0-15.0 [facility] ([place]) Comment on above: Performed By: #### G FR, CBC, ADIFF, ANEU, CMP, MG ####[address] [address] Globulin 5.2 G/dL High 1.5-3.8 [facility] ([place] Comment on above: Performed By: #### G FR, CBC, ADIFF, ANEU, CMP, MG ####[address] [address] Glucose [Mass/Vol] 183 mg/dL High 70-110 On license of [facility] ([place]) Comment on above: Performed By: #### G FR, CBC, ADIFF, ANEU, CMP, MG ####[address] [address] Potassium [Moles/Vol] 5.2 mmol/L High 3.5-5.0 [facility] ([place]) Comment on above: Result Comment: Spec imen slightly hemolyzed. Performed By: #### G FR, CBC, ADIFF, ANEU, CMP, MG ####[address] [address] Sodium [Moles/Vol] 135 mmol/L Low 136-145 On license of [facility] ([place]) Comment on above: Performed By: #### G FR, CBC, ADIFF, ANEU, CMP, MG ####[address] [address] Total Protein 6.8 G/dL Normal 5.7-8.2 [facility] ([place] Comment on above: Result Comment: No te - New Reference Range in effect 20 Performed By: #### G FR, CBC, ADIFF, ANEU, CMP, MG ####[address] [address] Urea nitrogen [Mass/Vol] 31.0 mg/dL High 8.0-22.0 [facility] ([place] Comment on above: Performed By: #### G FR, CBC, ADIFF, ANEU, CMP, MG ####[address] [address] LABORATORYOrdered By: Jean-Pierre Parrish on 06-30-2024 Blood Glucose Testing Reason Routine (06/30/24 4:06 PM) [facility] Work Phone: Glucose [Mass/Vol] 185 mg/dL High 70 - 110 mg/dL [facility] Work Phone: LABORATORYOrdered By: Chandler kate on 06-30-2024 Glucose [Mass/Vol] 252 mg/dL High 70 - 110 mg/dL [facility] Work Phone: Glucose [Mass/Vol] 147 mg/dL High 70 - 110 mg/dL [facility] Work Phone: LABORATORYOrdered By: SYSTEM SYSTEM on 06-30-2024 Albumin BCP dye [Mass/Vol] 1.6 G/dL Low 3.2 - 4.8 G/dL ADM SS Albumin/Globulin [Mass ratio] 0.3 {ratio} Low 0.9 - 1.6 ratio ADM SS ALP [Catalytic activity/Vol] 1437 U/L High 38 - 126 U/L ADM SS ALT No additional P-5'-P [Catalytic activity/Vol] 129 U/L High 12 - 55 U/L AH ADM SS AST [Catalytic activity/Vol] 101 U/L High 8 - 34 U/L AH [...] 0 mEq/L AH ADM SS CO2 [Moles/Vol] 24 mmol/L Normal 22 - 32 mEq/L ADM SS Creatinine [Mass/Vol] 1.94 mg/dL High 0.60 - 1.40 mg/dL AH ADM SS Electrolyte Balance 4.0 mEq/L Normal 4.0 - 15 .0 mEq/L AH ADM SS Eosinophils (Bld) [#/Vol] 0.3 103/mcL Normal 0.0 - 0.7 10^3/mcL AH Workflow SS Eosinophils/100 WBC (Bld) 3.2 % Normal 0.0 - 6.0 % Workflow SS Erythrocyte distribution width (RBC) [Ratio] 20.5 % High 11.5 - 15.5 % AH Workflow SS GFR/1.73 sq M.predicted among blacks MDRD (S/P/Bld) [Vol rate/Area] 45 ml/min/1.73sqm Invalid Interpretation Code [employer] [facility] S Comment on above: Interpretive Data: [...] [Vol rate/Area] 37 ml/min/1.73sqm Invalid Interpretation Code [employer] [facility] S Comment on above: Interpretive Data: [...] 27.0 % Low 40.0 - 52.0 % Workflow SS Hemoglobin (Bld) [Mass/Vol] 8.7 G/dL Low 13.0 - 17.5 G/dL Workflow SS Lymphocytes (Bld) [#/Vol] 1.9 103/mcL Normal 0.9 - 4.3 10^3/mcL Workflow SS Lymphocytes/100 WBC (Bld) 23.7 % Normal 20.0 - 40.0 % Workflow SS Magnesium [Mass/Vol] 1.7 mg/dL Normal 1.6 - 2 .4 mg/dL ADM SS MCH (RBC) [Entitic mass] 27.3 pg Normal 27.0 - 33.0 pg Workflow SS MCHC 32.3 G/dL Normal 32.0 - 36.0 G/dL Workflow SS MCV (RBC) [Entitic vol] 84.5 fL Normal 81.0 - 100.0 fL Workflow SS Monocytes (Bld) [#/Vol] 0.6 103/mcL Normal 0.1 - 1.4 10^3/mcL Workflow SS Monocytes/100 WBC (Bld) 7.8 % Normal 2.0 - 13.0 % Workflow SS Neutrophils (Bld) [#/Vol] 5.2 103/mcL Normal 2.3 - 8.1 10^3/mcL Workflow SS Neutrophils/100 WBC (Bld) 64.4 % Normal 50.0 - 75.0 % Workflow SS Platelet mean volume (Bld) [Entitic vol] 8.0 fL Normal 6.4 - 10.5 fL Workflow SS Platelets (Bld) [#/Vol] 303 103/mcL Normal 150 - 450 10^3/mcL Workflow SS Potassium [Moles/Vol] 5.2 mmol/L High [...] 06-30-2024 Magnesium [Mass/Vol] 1.7 mg/dL Normal 1.6-2.4 [facility] ([place]) Comment on above: Performed By: #### G FR, CBC, ADIFF, ANEU, CMP, MG ####[address] [address] .Auto Diffon 06-29-2024 Basophil, Absolute 0.1 10 3/mcL Normal 0.0-0.3 [facility] ([place]) Comment on above: Performed By: #### A ARBEN, GFR, CMP, ADIFF, CBC ####[address] [address] Basophils/100 WBC (Bld) 1.0 % Normal 0.0-2.5 A [facility] ([place]) Comment on above: Performed By: #### A ARBEN, GFR, CMP, ADIFF, CBC ####[address] [address] Eosinophil, Absolute 0.3 10 3/mcL Normal 0.0-0.7 [facility] ([place]) Comment on above: Performed By: #### A ARBEN, GFR, CMP, ADIFF, CBC ####[address] [address] Eosinophils/100 WBC (Bld) 3.3 % Normal 0.0-6.0 [facility] ([place]) Comment on above: Performed By: #### A ARBEN, GFR, CMP, ADIFF, CBC ####[address] [address] Lymphocyte, Absolute 1.9 10 3/mcL Normal 0.9-4.3 [facility] ([place]) Comment on above: Performed By: #### A ARBEN, GFR, CMP, ADIFF, CBC ####[address] [address] Lymphocytes/100 WBC (Bld) 23.6 % Normal 20.0-40.0 [facility] ([place]) Comment on above: Performed By: #### A ARBEN, GFR, CMP, ADIFF, CBC ####[address] [address] Monocyte, Absolute 0.7 10 3/mcL Normal 0.1-1.4 [facility] ([place] Comment on above: Performed By: #### A ARBEN, GFR, CMP, ADIFF, CBC ####[address] [address] Monocytes/100 WBC (Bld) 8.1 % Normal 2.0-13.0 [facility] ([place]) Comment on above: Performed By: #### A ARBEN, GFR, CMP, ADIFF, CBC ####[address] [address] Neutrophils/100 WBC (Bld) 64.0 % Normal 50.0-75.0 [facility] ([place]) Comment on above: Performed By: #### A ARBEN, GFR, CMP, ADIFF, CBC ####[address] [address] .GFRon 06-29-2024 GFR 44 ml/min/1.73sqm Normal [facility] ([place]) Comment on above: Result Comment: GFR [...] #### A ARBEN, GFR, CMP, ADIFF, CBC ####[address] [address] GFR Non- 37 ml/min/1.73sqm Normal [facility] ([place]) Comment on above: Result Comment: GFR Population [...] #### A ARBEN, GFR, CMP, ADIFF, CBC ####[place] [address] .NEUABSon 06-29-2024 Neutrophil, Absolute 5.2 10 3/mcL Normal 2.3-8.1 [facility] ([place]) Comment on above: Performed By: #### A ARBEN, GFR, CMP, ADIFF, CBC ####[place] [address] CBCon 06-29-2024 Erythrocyte distribution width (RBC) [Ratio] 20.1 % High 11.5-15.5 [facility] ([place] Comment on above: Performed By: #### A ARBEN, GFR, CMP, ADIFF, CBC ####[place] [address] Hematocrit (Bld) [Volume fraction] 26.5 % Low 40.0-52.0 [facility] ([place] Comment on above: Performed By: #### A ARBEN, GFR, CMP, ADIFF, CBC ####[place] [address] Hgb 8.6 G/dL Low 13.0-17.5 [facility] ([place] Comment on above: Performed By: #### A ARBEN, GFR, CMP, ADIFF, CBC ####[place] [address] MCH (RBC) [Entitic mass] 27.2 pg Normal 27.0-33.0 [facility] ([place] Comment on above: Performed By: #### A ARBEN, GFR, CMP, ADIFF, CBC ####[place] [address] MCHC 32.3 G/dL Normal 32.0-36.0 [facility] ([place] Comment on above: Performed By: #### A ARBEN, GFR, CMP, ADIFF, CBC ####[place] [address] MCV (RBC) [Entitic vol] 84.1 fL Normal 81.0-100.0 [facility] ([place]) Comment on above: Performed By: #### A ARBEN, GFR, CMP, ADIFF, CBC ####[place] [address] Platelet 304 10 3/mcL Normal 150-450 [facility] ([place] Comment on above: Performed By: #### A ARBEN, GFR, CMP, ADIFF, CBC ####[place] [address] Platelet mean volume (Bld) [Entitic vol] 8.0 fL Normal 6.4-10.5 [facility] ([place] Comment on above: Performed By: #### A ARBEN, GFR, CMP, ADIFF, CBC ####[place] [address] RBC 3.15 10 6/mcL Low 4.50-6.00 [facility] ([place] Comment on above: Performed By: #### A ARBEN, GFR, CMP, ADIFF, CBC ####[place] [address] WBC 8.2 10 3/mcL Normal 4.5-10.8 [facility] ([place] Comment on above: Performed By: #### A ARBEN, GFR, CMP, ADIFF, CBC ####[address] [address] CMPon 06-29-2024 Albumin Level 1.5 G/dL Low 3.2-4.8 [facility] ([place] Comment on above: Performed By: #### A ARBEN, GFR, CMP, ADIFF, CBC ####[place] [address] Albumin/Globulin [Mass ratio] 0.3 {ratio} Low 0.9-1.6 [facility] ([place] Comment on above: Performed By: #### A ARBEN, GFR, CMP, ADIFF, CBC ####[address] [address] ALP [Catalytic activity/Vol] 1446 U/L High 38-126 [facility] ([place] Comment on above: Performed By: #### A ARBEN, GFR, CMP, ADIFF, CBC ####[place] [address] ALT [Catalytic activity/Vol] 138 U/L High 12-55 [facility] ([place] Comment on above: Performed By: #### A ARBEN, GFR, CMP, ADIFF, CBC ####[place] [address] AST [Catalytic activity/Vol] 97 U/L High 8-34 [facility] ([place] Comment on above: Performed By: #### A ARBEN, GFR, CMP, ADIFF, CBC ####[place] [address] Bili Total 0.40 mg/dL Normal 0.20-1.20 [facility] ([place] Comment on above: Result Comment: Use of this assay is not recommended for patients undergoing treatment with eltrombopag due to the potential for falsely elevated results. Performed By: #### A ARBEN, GFR, CMP, ADIFF, CBC ####[place] [address] BUN/Creatinine Ratio 14.7 ratio Normal 10.0-22.0 [facility] ([place] Comment on above: Performed By: #### A ARBEN, GFR, CMP, ADIFF, CBC ####[address] [address] Calcium [Mass/Vol] 8.2 mg/dL Low 8.7-10.4 On license of [facility] ([place]) Comment on above: Performed By: #### A ARBEN, GFR, CMP, ADIFF, CBC ####[place] [address] Chloride [Moles/Vol] 108 mmol/L Normal 98-110 [facility] ([place] Comment on above: Performed By: #### A ARBEN, GFR, CMP, ADIFF, CBC ####[place] [address] CO2 [Moles/Vol] 23 mmol/L Normal 22-32 [facility] ([place] Comment on above: Performed By: #### A ARBEN, GFR, CMP, ADIFF, CBC ####[place] [address] Creatinine [Mass/Vol] 1.97 mg/dL High 0.60-1.40 [facility] ([place]) Comment on above: Performed By: #### A ARBEN, GFR, CMP, ADIFF, CBC ####[address] [address] Electrolyte Balance 6.0 mEq/L Normal 4.0-15.0 [facility] ([place] Comment on above: Performed By: #### A ARBEN, GFR, CMP, ADIFF, CBC ####[address] [address] Globulin 5.1 G/dL High 1.5-3.8 [facility] ([place] Comment on above: Performed By: #### A ARBEN, GFR, CMP, ADIFF, CBC ####[place] [id number] Glucose [Mass/Vol] 174 mg/dL High 70-110 On license of [facility] ([place]) Comment on above: Performed By: #### A ARBEN, GFR, CMP, ADIFF, CBC ####[place] [id number] [address] [place] [address] Potassium [Moles/Vol] 5.0 mmol/L Normal 3.5-5.0 [facility] ([place] Comment on above: Performed By: #### A ARBEN, GFR, CMP, ADIFF, CBC ####[address] [address] Sodium [Moles/Vol] 137 mmol/L Normal 136-145 On license of [facility] ([place]) Comment on above: Performed By: #### A ARBEN, GFR, CMP, ADIFF, CBC ####[address] [address] Total Protein 6.6 G/dL Normal 5.7-8.2 [facility] ([place] Comment on above: Result Comment: No te - New Reference Range in effect 20 Performed By: #### A ARBEN, GFR, CMP, ADIFF, CBC ####[address] [address] Urea nitrogen [Mass/Vol] 29.0 mg/dL High 8.0-22.0 [facility] ([place] Comment on above: Performed By: #### A ARBEN, GFR, CMP, ADIFF, CBC ####[address] [address] LABORATORYOrdered By: SYSTEM SYSTEM on 06-29-2024 Albumin BCP dye [Mass/Vol] 1.5 G/dL Low 3.2 - 4.8 G/dL ADM SS Albumin/Globulin [Mass ratio] 0.3 {ratio} Low 0.9 - 1.6 ratio ADM SS ALP [Catalytic activity/Vol] 1446 U/L High 38 - 126 U/L ADM SS ALT No additional P-5'-P [Catalytic activity/Vol] 138 U/L High 12 - 55 U/L ADM SS AST [Catalytic activity/Vol] 97 U/L High 8 - 34 U/L ADM SS Basophils (Bld) [#/Vol] 0.1 103/mcL Normal 0.0 - 0.3 10^3/mcL Workflow SS Basophils/100 WBC (Bld) 1.0 % [...] - 1.40 mg/dL ADM SS Electrolyte Balance 6.0 mEq/L Normal [...] 6.6 G/dL Normal 5.7 - 8.2 G/dL AH [...] 8.2 103/mcL Normal 4.5 - 10.8 10^3/mcL AH Workflow SS .Auto Diffon 06-28-2024 Basophil, Absolute 0.1 10 3/mcL Normal 0.0-0.3 [facility] ([place] Comment on above: Performed By: #### C BC, CMP, ADIFF, ANEU, GFR, MG ####[address] [address] Basophils/100 WBC (Bld) 0.8 % Normal 0.0-2.5 [facility] ([place]) Comment on above: Performed By: #### C BC, CMP, ADIFF, ANEU, GFR, MG ####[place] [id number] [address] [place] [address] Eosinophil, Absolute 0.3 10 3/mcL Normal 0.0-0.7 [facility] ([place]) Comment on above: Performed By: #### C BC, CMP, ADIFF, ANEU, GFR, MG ####[address] [address] Eosinophils/100 WBC (Bld) 3.6 % Normal 0.0-6.0 [facility] ([place] Comment on above: Performed By: #### C BC, CMP, ADIFF, ANEU, GFR, MG ####[address] [address] Lymphocyte, Absolute 1.8 10 3/mcL Normal 0.9-4.3 [facility] ([place] Comment on above: Performed By: #### C BC, CMP, ADIFF, ANEU, GFR, MG ####[address] [address] Lymphocytes/100 WBC (Bld) 22.5 % Normal 20.0-40.0 [facility] ([place] Comment on above: Performed By: #### C BC, CMP, ADIFF, ANEU, GFR, MG ####[address] [address] Monocyte, Absolute 0.7 10 3/mcL Normal 0.1-1.4 [facility] ([place] Comment on above: Performed By: #### C BC, CMP, ADIFF, ANEU, GFR, MG ####[address] [address] Monocytes/100 WBC (Bld) 8.8 % Normal 2.0-13.0 [facility] ([place]) Comment on above: Performed By: #### C BC, CMP, ADIFF, ANEU, GFR, MG ####[address] [address] Neutrophils/100 WBC (Bld) 64.3 % Normal 50.0-75.0 [facility] ([place] Comment on above: Performed By: #### C BC, CMP, ADIFF, ANEU, GFR, MG ####[address] [address] .GFRon 06-28-2024 GFR 44 ml/min/1.73sqm Normal [facility] ([place] Comment on above: Result Comment: GFR Population [...] C BC, CMP, ADIFF, ANEU, GFR, MG ####[address] [address] GFR Non- 37 ml/min/1.73sqm Normal [facility] ([place] Comment on above: Result Comment: GFR Population [...] C BC, CMP, ADIFF, ANEU, GFR, MG ####[address] [address] .NEUABSon 06-28-2024 Neutrophil, Absolute 5.1 10 3/mcL Normal 2.3-8.1 [facility] ([place] Comment on above: Performed By: #### C BC, CMP, ADIFF, ANEU, GFR, MG ####[address] [address] CBCon 06-28-2024 Erythrocyte distribution width (RBC) [Ratio] 20.2 % High 11.5-15.5 [facility] ([place] Comment on above: Performed By: #### C BC, CMP, ADIFF, ANEU, GFR, MG ####[place] [address] Hematocrit (Bld) [Volume fraction] 26.4 % Low 40.0-52.0 [facility] ([place] Comment on above: Performed By: #### C BC, CMP, ADIFF, ANEU, GFR, MG ####[place] [address] Hgb 8.8 G/dL Low 13.0-17.5 [facility] ([place] Comment on above: Performed By: #### C BC, CMP, ADIFF, ANEU, GFR, MG ####[place] [address] MCH (RBC) [Entitic mass] 28.5 pg Normal 27.0-33.0 [facility] ([place] Comment on above: Performed By: #### C BC, CMP, ADIFF, ANEU, GFR, MG ####[place] [address] MCHC 33.4 G/dL Normal 32.0-36.0 [facility] ([place] Comment on above: Performed By: #### C BC, CMP, ADIFF, ANEU, GFR, MG ####[place] [address] MCV (RBC) [Entitic vol] 85.1 fL Normal 81.0-100.0 [facility] ([place] Comment on above: Performed By: #### C BC, CMP, ADIFF, ANEU, GFR, MG ####[place] [address] Platelet 285 10 3/mcL Normal 150-450 [facility] ([place] Comment on above: Performed By: #### C BC, CMP, ADIFF, ANEU, GFR, MG ####[place] [address] Platelet mean volume (Bld) [Entitic vol] 8.0 fL Normal 6.4-10.5 [facility] ([place] Comment on above: Performed By: #### C BC, CMP, ADIFF, ANEU, GFR, MG ####[place] [address] RBC 3.10 10 6/mcL Low 4.50-6.00 [facility] ([place] Comment on above: Performed By: #### C BC, CMP, ADIFF, ANEU, GFR, MG ####[place] [address] WBC 8.0 10 3/mcL Normal 4.5-10.8 [facility] ([place] Comment on above: Performed By: #### C BC, CMP, ADIFF, ANEU, GFR, MG ####[place] [address] CMPon 06-28-2024 Albumin Level 1.5 G/dL Low 3.2-4.8 [facility] ([place] Comment on above: Performed By: #### C BC, CMP, ADIFF, ANEU, GFR, MG ####[place] [address] Albumin/Globulin [Mass ratio] 0.3 {ratio} Low 0.9-1.6 [facility] ([place] Comment on above: Performed By: #### C BC, CMP, ADIFF, ANEU, GFR, MG ####[place] [address] ALP [Catalytic activity/Vol] 1526 U/L High 38-126 [facility] ([place] Comment on above: Performed By: #### C BC, CMP, ADIFF, ANEU, GFR, MG ####[place] [address] ALT [Catalytic activity/Vol] 169 U/L High 12-55 [facility] ([place] Comment on above: Performed By: #### C BC, CMP, ADIFF, ANEU, GFR, MG ####[address] [address] AST [Catalytic activity/Vol] 132 U/L High 8-34 [facility] ([place] Comment on above: Performed By: #### C BC, CMP, ADIFF, ANEU, GFR, MG ####[place] [address] Bili Total 0.40 mg/dL Normal 0.20-1.20 [facility] ([place] Comment on above: Result Comment: Use of this assay is not recommended for patients undergoing treatment with eltrombopag due to the potential for falsely elevated results. Performed By: #### C BC, CMP, ADIFF, ANEU, GFR, MG ####[place] [address] BUN/Creatinine Ratio 13.7 ratio Normal 10.0-22.0 [facility] ([place] Comment on above: Performed By: #### C BC, CMP, ADIFF, ANEU, GFR, MG ####[place] [address] Calcium [Mass/Vol] 7.9 mg/dL Low 8.7-10.4 On license of [facility] ([place]) Comment on above: Performed By: #### C BC, CMP, ADIFF, ANEU, GFR, MG ####[place] [address] Chloride [Moles/Vol] 110 mmol/L Normal 98-110 [facility] ([place] Comment on above: Performed By: #### C BC, CMP, ADIFF, ANEU, GFR, MG ####[place] [id number] CO2 [Moles/Vol] 23 mmol/L Normal 22-32 [facility] ([place] Comment on above: Performed By: #### C BC, CMP, ADIFF, ANEU, GFR, MG ####[place] [id number] Creatinine [Mass/Vol] 1.97 mg/dL High 0.60-1.40 [facility] ([place]) Comment on above: Performed By: #### C BC, CMP, ADIFF, ANEU, GFR, MG ####[place] [id number] Electrolyte Balance 2.0 mEq/L Low 4.0-15.0 [facility] ([place] Comment on above: Performed By: #### C BC, CMP, ADIFF, ANEU, GFR, MG ####[address] [address] Globulin 5.0 G/dL High 1.5-3.8 [facility] ([place] Comment on above: Performed By: #### C BC, CMP, ADIFF, ANEU, GFR, MG ####[address] [address] Glucose [Mass/Vol] 167 mg/dL High 70-110 On license of [facility] ([place]) Comment on above: Performed By: #### C BC, CMP, ADIFF, ANEU, GFR, MG ####[address] [address] Potassium [Moles/Vol] 4.8 mmol/L Normal 3.5-5.0 [facility] ([place] Comment on above: Performed By: #### C BC, CMP, ADIFF, ANEU, GFR, MG ####[address] [address] Sodium [Moles/Vol] 135 mmol/L Low 136-145 On license of [facility] ([place] Comment on above: Performed By: #### C BC, CMP, ADIFF, ANEU, GFR, MG ####[place] [address] Total Protein 6.5 G/dL Normal 5.7-8.2 [facility] ([place] Comment on above: Result Comment: No te - New Reference Range in effect 20 Performed By: #### C BC, CMP, ADIFF, ANEU, GFR, MG ####[address] [address] Urea nitrogen [Mass/Vol] 27.0 mg/dL High 8.0-22.0 [facility] ([place] Comment on above: Performed By: #### C BC, CMP, ADIFF, ANEU, GFR, MG ####[address] [address] LABORATORYOrdered By: SYSTEM SYSTEM on 06-28-2024 Albumin BCP dye [Mass/Vol] 1.5 G/dL Low 3.2 - 4.8 G/dL ADM SS Albumin/Globulin [Mass ratio] 0.3 {ratio} Low 0.9 - 1.6 ratio AH ADM SS ALP [Catalytic activity/Vol] 1526 U/L High 38 - 126 U/L AH ADM SS ALT No additional P-5'-P [Catalytic activity/Vol] 169 U/L High 12 - 55 U/L AH ADM SS AST [Catalytic activity/Vol] 132 U/L High 8 - 34 U/L AH ADM SS Basophils (Bld) [#/Vol] 0.1 103/mcL Normal 0.0 - 0.3 10^3/mcL AH Workflow SS Basophils/100 WBC (Bld) 0.8 % Normal 0.0 - 2.5 % Workflow [...] G/dL Workflow SS MCV (RBC) [Entitic vol] 85.1 [...] 06-28-2024 Magnesium [Mass/Vol] 1.6 mg/dL Normal 1.6-2.4 [facility] ([place] Comment on above: Performed By: #### C BC, CMP, ADIFF, ANEU, GFR, MG ####[place] [address] .Auto Diffon 06-27-2024 Basophil, Absolute 0.1 10 3/mcL Normal 0.0-0.3 [facility] ([place] Comment on above: Performed By: #### A ARBEN, ADIFF, CBC, CMP, MG, GFR ####[address] [address] Basophils/100 WBC (Bld) 1.1 % Normal 0.0-2.5 [facility] ([place] Comment on above: Performed By: #### A ARBEN, ADIFF, CBC, CMP, MG, GFR ####[address] [address] Eosinophil, Absolute 0.3 10 3/mcL Normal 0.0-0.7 [facility] ([place] Comment on above: Performed By: #### A ARBEN, ADIFF, CBC, CMP, MG, GFR ####[address] [address] Eosinophils/100 WBC (Bld) 3.8 % Normal 0.0-6.0 [facility] ([place] Comment on above: Performed By: #### A ARBEN, ADIFF, CBC, CMP, MG, GFR ####[address] [address] Lymphocyte, Absolute 2.0 10 3/mcL Normal 0.9-4.3 [facility] ([place] Comment on above: Performed By: #### A ARBEN, ADIFF, CBC, CMP, MG, GFR ####[address] [address] Lymphocytes/100 WBC (Bld) 27.9 % Normal 20.0-40.0 [facility] ([place] Comment on above: Performed By: #### A ARBEN, ADIFF, CBC, CMP, MG, GFR ####[address] [address] Monocyte, Absolute 0.7 10 3/mcL Normal 0.1-1.4 [facility] ([place] Comment on above: Performed By: #### A ARBEN, ADIFF, CBC, CMP, MG, GFR ####[address] [address] Monocytes/100 WBC (Bld) 9.5 % Normal 2.0-13.0 [facility] [place] Comment on above: Performed By: #### A ARBEN, ADIFF, CBC, CMP, MG, GFR ####[address] [address] Neutrophils/100 WBC (Bld) 57.7 % Normal 50.0-75.0 [facility] ([place] Comment on above: Performed By: #### A ARBEN, ADIFF, CBC, CMP, MG, GFR ####[address] [address] .GFRon 06-27-2024 GFR 49 ml/min/1.73sqm Normal [facility] ([place] Comment on above: Result Comment: GFR Population [...] A ARBEN, ADIFF, CBC, CMP, MG, GFR ####[address] [address] GFR Non- 40 ml/min/1.73sqm Normal [facility] ([place] Comment on above: Result Comment: GFR Population [...] A ARBEN, ADIFF, CBC, CMP, MG, GFR ####[place] [address] .NEUABSon 06-27-2024 Neutrophil, Absolute 4.1 10 3/mcL Normal 2.3-8.1 [facility] ([place] Comment on above: Performed By: #### A ARBEN, ADIFF, CBC, CMP, MG, GFR ####[place] [address] ALKISOon 06-27-2024 ALP [Catalytic activity/Vol] 2012 U/L High 44-121 [facility] ([place] Comment on above: Result Comment: Resu lts confirmed ondilution. Performed By: #### G FR, [id number], DUANE, CMP, ANEU, ADIFF, CBC, PRO, SMUST, SMUSC, JOAQUIM, MG, HEPAC ####[place] [address] ALP Bone Frac 32 % Normal 12-68 [facility] ([place] Comment on above: Performed By: #### G FR, [id number], DUANE, CMP, ANEU, ADIFF, CBC, PRO, SMUST, SMUSC, JOAQUIM, MG, HEPAC ####[place] [address] ALP Intest Frac 0 % Normal 0-18 [facility] ([place] Comment on above: Result Comment: Perf ormed At: [facility] [address] [id number] Vincent PhD Ph:[phone] Performed By: #### G FR, [id number], DUANE, CMP, ANEU, ADIFF, CBC, PRO, SMUST, SMUSC, JOAQUIM, MG, HEPAC ####[place] [address] ALP Liver Frac 68 % Normal 13-88 [facility] ([place] Comment on above: Performed By: #### G FR, [id number], DUANE, CMP, ANEU, ADIFF, CBC, PRO, SMUST, SMUSC, JOAQUIM, MG, HEPAC ####[place] [address] ANAon 06-27-2024 Nuclear Ab IF (S) [Titer] 40 {titer} Normal Neg 40 [facility] ([place] Comment on above: Result Comment: DUANE Screen and Titer methodology is an immunofluorescent technique utilizing Hep2 Substrate. Performed By: #### G FR, [id number], DUANE, CMP, ANEU, ADIFF, CBC, PRO, SMUST, SMUSC, JOAQUIM, MG, HEPAC ####[place] [address] CBCon 06-27-2024 Erythrocyte distribution width (RBC) [Ratio] 20.3 % High 11.5-15.5 [facility] ([place] Comment on above: Performed By: #### A ARBEN, ADIFF, CBC, CMP, MG, GFR ####[place] [address] Hematocrit (Bld) [Volume fraction] 26.7 % Low 40.0-52.0 [facility] ([place] Comment on above: Performed By: #### A ARBEN, ADIFF, CBC, CMP, MG, GFR ####[place] [address] Hgb 8.5 G/dL Low 13.0-17.5 [facility] ([place] Comment on above: Performed By: #### A ARBEN, ADIFF, CBC, CMP, MG, GFR ####[place] [address] MCH (RBC) [Entitic mass] 26.8 pg Low 27.0-33.0 [facility] ([place] Comment on above: Performed By: #### A ARBEN, ADIFF, CBC, CMP, MG, GFR ####[place] [address] MCHC 31.7 G/dL Low 32.0-36.0 [facility] ([place] Comment on above: Performed By: #### A ARBEN, ADIFF, CBC, CMP, MG, GFR ####[place] [address] MCV (RBC) [Entitic vol] 84.5 fL Normal 81.0-100.0 [facility] ([place] Comment on above: Performed By: #### A ARBEN, ADIFF, CBC, CMP, MG, GFR ####[address] [address] Platelet 308 10 3/mcL Normal 150-450 [facility] ([place] Comment on above: Performed By: #### A ARBEN, ADIFF, CBC, CMP, MG, GFR ####[place] [address] Platelet mean volume (Bld) [Entitic vol] 7.8 fL Normal 6.4-10.5 [facility] ([place] Comment on above: Performed By: #### A ARBEN, ADIFF, CBC, CMP, MG, GFR ####[place] [address] RBC 3.16 10 6/mcL Low 4.50-6.00 [facility] ([place] Comment on above: Performed By: #### A ARBEN, ADIFF, CBC, CMP, MG, GFR ####[place] [address] WBC 7.1 10 3/mcL Normal 4.5-10.8 [facility] ([place] Comment on above: Performed By: #### A ARBEN, ADIFF, CBC, CMP, MG, GFR ####[place] [address] CMPon 06-27-2024 ALP [Catalytic activity/Vol] 1616 U/L High 38-126 [facility] ([place] Comment on above: Performed By: #### A ARBEN, ADIFF, CBC, CMP, MG, GFR ####[place] [address] Albumin Level 1.4 G/dL Low 3.2-4.8 [facility] ([place] Comment on above: Performed By: #### A ARBEN, ADIFF, CBC, CMP, MG, GFR ####[place] [address] Albumin/Globulin [Mass ratio] 0.3 {ratio} Low 0.9-1.6 [facility] ([place] Comment on above: Performed By: #### A ARBEN, ADIFF, CBC, CMP, MG, GFR ####[address] [address] ALT [Catalytic activity/Vol] 212 U/L High 12-55 [facility] ([place] Comment on above: Performed By: #### A ARBEN, ADIFF, CBC, CMP, MG, GFR ####[address] [address] AST [Catalytic activity/Vol] 218 U/L High 8-34 [facility] ([place] Comment on above: Performed By: #### A ARBEN, ADIFF, CBC, CMP, MG, GFR ####[address] [address] Bili Total 0.30 mg/dL Normal 0.20-1.20 [facility] ([place] Comment on above: Result Comment: Use of this assay is not recommended for patients undergoing treatment with eltrombopag due to the potential for falsely elevated results. Performed By: #### A ARBEN, ADIFF, CBC, CMP, MG, GFR ####[address] [address] BUN/Creatinine Ratio 14.3 ratio Normal 10.0-22.0 [facility] ([place] Comment on above: Performed By: #### A ARBEN, ADIFF, CBC, CMP, MG, GFR ####[address] [address] Calcium [Mass/Vol] 7.7 mg/dL Low 8.7-10.4 On license of [facility] ([place]) Comment on above: Performed By: #### A ARBEN, ADIFF, CBC, CMP, MG, GFR ####[address] [address] Chloride [Moles/Vol] 109 mmol/L Normal 98-110 [facility] ([place] Comment on above: Performed By: #### A ARBEN, ADIFF, CBC, CMP, MG, GFR ####[address] [address] CO2 [Moles/Vol] 21 mmol/L Low 22-32 [facility] ([place] Comment on above: Performed By: #### A ARBEN, ADIFF, CBC, CMP, MG, GFR ####[address] [address] Creatinine [Mass/Vol] 1.82 mg/dL High 0.60-1.40 [facility] ([place] Comment on above: Performed By: #### A ARBEN, ADIFF, CBC, CMP, MG, GFR ####[address] [address] Electrolyte Balance 6.0 mEq/L Normal 4.0-15.0 [facility] ([place] Comment on above: Performed By: #### A ARBEN, ADIFF, CBC, CMP, MG, GFR ####[address] [address] Globulin 5.0 G/dL High 1.5-3.8 [facility] ([place] Comment on above: Performed By: #### A ARBEN, ADIFF, CBC, CMP, MG, GFR ####[address] [address] Glucose [Mass/Vol] 217 mg/dL High 70-110 On license of [facility] ([place] Comment on above: Performed By: #### A ARBEN, ADIFF, CBC, CMP, MG, GFR ####[address] [address] Potassium [Moles/Vol] 4.9 mmol/L Normal 3.5-5.0 [facility] ([place] Comment on above: Performed By: #### A ARBEN, ADIFF, CBC, CMP, MG, GFR ####[address] [address] Sodium [Moles/Vol] 136 mmol/L Normal 136-145 On license of [facility] ([place] Comment on above: Performed By: #### A ARBEN, ADIFF, CBC, CMP, MG, GFR ####[address] [address] Total Protein 6.4 G/dL Normal 5.7-8.2 [facility] ([place] Comment on above: Result Comment: No te - New Reference Range in effect 20 Performed By: #### A ARBEN, ADIFF, CBC, CMP, MG, GFR ####[place] [address] Urea nitrogen [Mass/Vol] 26.0 mg/dL High 8.0-22.0 [facility] ([place] Comment on above: Performed By: #### A ARBEN, ADIFF, CBC, CMP, MG, GFR ####[place] [address] LABORATORYOrdered By: SYSTEM SYSTEM on 06-27-2024 Magnesium [Mass/Vol] 1.7 mg/dL Normal 1.6 - 2 .4 mg/dL AH ADM SS MGon 06-27-2024 Magnesium [Mass/Vol] 1.7 mg/dL Normal 1.6-2.4 [facility] ([place] Comment on above: Performed By: #### A ARBEN, ADIFF, CBC, CMP, MG, GFR ####[place] [address] MITOon 06-27-2024 Mitochondrial Ab Neg 20 Normal Neg 20 [facility] ([place] Comment on above: Result Comment: Joaquim chondrial Ab Screen and Titer methodology is an immunofluorescent technique utilizing MSK Substrate. Performed By: #### G FR, [id number], DUANE, CMP, ANEU, ADIFF, CBC, PRO, SMUST, SMUSC, JOAQUIM, MG, HEPAC ####[place] [address] SMUSCon 06-27-2024 Smooth Muscle Ab See Titer Normal Neg 20 [facility] ([place] Comment on above: Result Comment: Smoo th Muscle Ab Screen and Titer methodology is an immunofluorescent technique utilizing MSK Substrate. Performed By: #### G FR, [id number], DUANE, CMP, ANEU, ADIFF, CBC, PRO, SMUST, SMUSC, JOAQUIM, MG, HEPAC ####[place] [address] .Auto Diffon 06-26-2024 Basophil, Absolute 0.1 10 3/mcL Normal 0.0-0.3 [facility] ([place] Comment on above: Performed By: #### G FR, [id number], DUANE, CMP, ANEU, ADIFF, CBC, PRO, SMUST, SMUSC, JOAQUIM, MG, HEPAC ####[address] [address] Basophils/100 WBC (Bld) 1.2 % Normal 0.0-2.5 [facility] ([place] Comment on above: Performed By: #### Elizabeth FR, [id number], DUANE, CMP, ANEU, ADIFF, CBC, PRO, SMUST, SMUSC, JOAQUIM, MG, HEPAC ####[address] [address] Eosinophil, Absolute 0.3 10 3/mcL Normal 0.0-0.7 [facility] ([place]) Comment on above: Performed By: #### Elizabeth SOTO, [id number], DUANE, CMP, ANEU, ADIFF, CBC, PRO, SMUST, SMUSC, JOAQUIM, MG, HEPAC ####[address] [address] Eosinophils/100 WBC (Bld) 4.4 % Normal 0.0-6.0 [facility] ([place]) Comment on above: Performed By: #### Elizabeth SOTO, [id number], DUANE, CMP, ANEU, ADIFF, CBC, PRO, SMUST, SMUSC, JOAQUIM, MG, HEPAC ####[address] [address] Lymphocyte, Absolute 1.9 10 3/mcL Normal 0.9-4.3 [facility] ([place] Comment on above: Performed By: #### Elizabeth FR, [id number], DUANE, CMP, ANEU, ADIFF, CBC, PRO, SMUST, SMUSC, JOAQUIM, MG, HEPAC ####[address] [address] Lymphocytes/100 WBC (Bld) 23.8 % Normal 20.0-40.0 [facility] ([place] Comment on above: Performed By: #### Elizabeth SOTO, [id number], DUANE, CMP, ANEU, ADIFF, CBC, PRO, SMUST, SMUSC, JOAQUIM, MG, HEPAC ####[address] [address] Monocyte, Absolute 0.7 10 3/mcL Normal 0.1-1.4 [facility] ([place] Comment on above: Performed By: #### G FR, [id number], DUANE, CMP, ANEU, ADIFF, CBC, PRO, SMUST, SMUSC, JOAQUIM, MG, HEPAC ####[place] [id number] [address] [place] [address] Monocytes/100 WBC (Bld) 9.5 % Normal 2.0-13.0 [facility] ([place] Comment on above: Performed By: #### G FR, [id number], DUANE, CMP, ANEU, ADIFF, CBC, PRO, SMUST, SMUSC, JOAQUIM, MG, HEPAC ####[place] [id number] [address] [place] [address] Neutrophils/100 WBC (Bld) 61.1 % Normal 50.0-75.0 [facility] ([place] Comment on above: Performed By: #### Elizabeth FR, [id number], DUANE, CMP, ANEU, ADIFF, CBC, PRO, SMUST, SMUSC, JOAQUIM, MG, HEPAC ####[address] [address] .GFRon 06-26-2024 GFR 46 ml/min/1.73sqm Normal [facility] ([place] Comment on above: Result Comment: GFR Population [...] square meters Performed By: #### G FR, [id number], DUANE, CMP, ANEU, ADIFF, CBC, PRO, SMUST, SMUSC, JOAQUIM, MG, HEPAC ####[address] [address] GFR Non- 38 ml/min/1.73sqm Normal [facility] ([place] Comment on above: Result Comment: GFR Population [...] square meters Performed By: #### G , [id number], DUANE, CMP, ANEU, ADIFF, CBC, PRO, SMUST, SMUSC, JOAQUIM, MG, HEPAC ####[address] [address] .NEUABSon 06-26-2024 Neutrophil, Absolute 4.8 10 3/mcL Normal 2.3-8.1 [facility] ([place] Comment on above: Performed By: #### Elizabeth SOTO, [id number], DUANE, CMP, ANEU, ADIFF, CBC, PRO, SMUST, SMUSC, JOAQUIM, MG, HEPAC ####[place] [id number] CBCon 06-26-2024 Erythrocyte distribution width (RBC) [Ratio] 19.8 % High 11.5-15.5 [facility] ([place] Comment on above: Performed By: #### Elizabeth FR, [id number], DUANE, CMP, ANEU, ADIFF, CBC, PRO, SMUST, SMUSC, JOAQUIM, MG, HEPAC ####[place] [address] Hematocrit (Bld) [Volume fraction] 26.1 % Low 40.0-52.0 [facility] ([place] Comment on above: Performed By: #### Elizabeth FR, [id number], DUANE, CMP, ANEU, ADIFF, CBC, PRO, SMUST, SMUSC, JOAQUIM, MG, HEPAC ####[place] [address] Hgb 8.4 G/dL Low 13.0-17.5 [facility] ([place] Comment on above: Performed By: #### Elizabeth SOTO, [id number], DUANE, CMP, ANEU, ADIFF, CBC, PRO, SMUST, SMUSC, JOAQUIM, MG, HEPAC ####[place] [address] MCH (RBC) [Entitic mass] 26.9 pg Low 27.0-33.0 [facility] ([place] Comment on above: Performed By: #### Elizabeth SOTO, [id number], DUANE, CMP, ANEU, ADIFF, CBC, PRO, SMUST, SMUSC, JOAQUIM, MG, HEPAC ####[place] [address] MCHC 32.3 G/dL Normal 32.0-36.0 [facility] ([place] Comment on above: Performed By: #### Elizabeth SOTO, [id number], DUANE, CMP, ANEU, ADIFF, CBC, PRO, SMUST, SMUSC, JOAQUIM, MG, HEPAC ####[place] [address] MCV (RBC) [Entitic vol] 83.1 fL Normal 81.0-100.0 [facility] ([place] Comment on above: Performed By: #### Elizabeth SOTO, [id number], DUANE, CMP, ANEU, ADIFF, CBC, PRO, SMUST, SMUSC, JOAQUIM, MG, HEPAC ####[place] [address] Platelet 349 10 3/mcL Normal 150-450 [facility] ([place]) Comment on above: Performed By: #### Elizabeth FR, [id number], DUANE, CMP, ANEU, ADIFF, CBC, PRO, SMUST, SMUSC, JOAQUIM, MG, HEPAC ####[place] [address] Platelet mean volume (Bld) [Entitic vol] 7.5 fL Normal 6.4-10.5 [facility] ([place]) Comment on above: Performed By: #### G , [id number], DUANE, CMP, ANEU, ADIFF, CBC, PRO, SMUST, SMUSC, JOAQUIM, MG, HEPAC ####[address] [id number] RBC 3.14 10 6/mcL Low 4.50-6.00 [facility] ([place]) Comment on above: Performed By: #### Elizabeth SOTO, [id number], DUANE, CMP, ANEU, ADIFF, CBC, PRO, SMUST, SMUSC, JOAQUIM, MG, HEPAC ####[address] [address] WBC 7.8 10 3/mcL Normal 4.5-10.8 [facility] ([place]) Comment on above: Performed By: #### Elizabeth SOTO, [id number], DUANE, CMP, ANEU, ADIFF, CBC, PRO, SMUST, SMUSC, JOAQUIM, MG, HEPAC ####[place] [address] CMPon 06-26-2024 Albumin Level 1.4 G/dL Low 3.2-4.8 [facility] ([place] Comment on above: Performed By: #### G , [id number], DUANE, CMP, ANEU, ADIFF, CBC, PRO, SMUST, SMUSC, JOAQUIM, MG, HEPAC ####[place] [address] Albumin/Globulin [Mass ratio] 0.3 {ratio} Low 0.9-1.6 [facility] ([place] Comment on above: Performed By: #### Elizabeth SOTO, [id number], DUANE, CMP, ANEU, ADIFF, CBC, PRO, SMUST, SMUSC, JOAQUIM, MG, HEPAC ####[place] [address] ALP [Catalytic activity/Vol] 1921 U/L High 38-126 [facility] ([place] Comment on above: Performed By: #### Elizabeth SOTO, [id number], DUANE, CMP, ANEU, ADIFF, CBC, PRO, SMUST, SMUSC, JOAQUIM, MG, HEPAC ####[address] [address] ALT [Catalytic activity/Vol] 294 U/L High 12-55 [facility] ([place] Comment on above: Performed By: #### G , [id number], DUANE, CMP, ANEU, ADIFF, CBC, PRO, SMUST, SMUSC, JOAQUIM, MG, HEPAC ####[address] [address] AST [Catalytic activity/Vol] 432 U/L High 8-34 [facility] ([place] Comment on above: Performed By: #### G , [id number], DUANE, CMP, ANEU, ADIFF, CBC, PRO, SMUST, SMUSC, JOAQUIM, MG, HEPAC ####[place] [address] Bili Total 0.40 mg/dL Normal 0.20-1.20 [facility] ([place] Comment on above: Result Comment: Use of this assay is not recommended for patients undergoing treatment with eltrombopag due to the potential for falsely elevated results. Performed By: #### Elizabeth SOTO, [id number], DUANE, CMP, ANEU, ADIFF, CBC, PRO, SMUST, SMUSC, JOAQUIM, MG, HEPAC ####[place] [address] BUN/Creatinine Ratio 13.5 ratio Normal 10.0-22.0 [facility] ([place] Comment on above: Performed By: #### Elizabeth SOTO, [id number], DUANE, CMP, ANEU, ADIFF, CBC, PRO, SMUST, SMUSC, JOAQUIM, MG, HEPAC ####[place] [address] Calcium [Mass/Vol] 8.4 mg/dL Low 8.7-10.4 On license of [facility] ([place]) Comment on above: Performed By: #### G , [id number], DUANE, CMP, ANEU, ADIFF, CBC, PRO, SMUST, SMUSC, JOAQUIM, MG, HEPAC ####[place] [address] Chloride [Moles/Vol] 110 mmol/L Normal 98-110 [facility] ([place] Comment on above: Performed By: #### G , [id number], DUANE, CMP, ANEU, ADIFF, CBC, PRO, SMUST, SMUSC, JOAQUIM, MG, HEPAC ####[address] [address] CO2 [Moles/Vol] 24 mmol/L Normal 22-32 [facility] ([place] Comment on above: Performed By: #### G , 602479, DUANE, CMP, ANEU, ADIFF, CBC, PRO, SMUST, SMUSC, JOAQUIM, MG, HEPAC ####[address] [address] Creatinine [Mass/Vol] 1.92 mg/dL High 0.60-1.40 [facility] ([place]) Comment on above: Performed By: #### G , 748374, DUANE, CMP, ANEU, ADIFF, CBC, PRO, SMUST, SMUSC, JOAQUIM, MG, HEPAC ####[place] [address] Electrolyte Balance 1.0 mEq/L Low 4.0-15.0 [facility] ([place]) Comment on above: Performed By: #### Elizabeth SOTO, [id number], DUANE, CMP, ANEU, ADIFF, CBC, PRO, SMUST, SMUSC, JOAQUIM, MG, HEPAC ####[address] [address] Globulin 5.3 G/dL High 1.5-3.8 [facility] ([place] Comment on above: Performed By: #### Elizabeth SOTO, [id number], DUANE, CMP, ANEU, ADIFF, CBC, PRO, SMUST, SMUSC, JOAQUIM, MG, HEPAC ####[address] [address] Glucose [Mass/Vol] 227 mg/dL High 70-110 On license of [facility] ([place]) Comment on above: Performed By: #### G , 017920, DUANE, CMP, ANEU, ADIFF, CBC, PRO, SMUST, SMUSC, JOAQUIM, MG, HEPAC ####[address] [address] Potassium [Moles/Vol] 5.3 mmol/L High 3.5-5.0 [facility] ([place]) Comment on above: Performed By: #### G , 132038, DUANE, CMP, ANEU, ADIFF, CBC, PRO, SMUST, SMUSC, JOAQUIM, MG, HEPAC ####[place] [address] Sodium [Moles/Vol] 135 mmol/L Low 136-145 On license of [facility] ([place]) Comment on above: Performed By: #### G , 328635, DUANE, CMP, ANEU, ADIFF, CBC, PRO, SMUST, SMUSC, JOAQUIM, MG, HEPAC ####[place] [address] Total Protein 6.7 G/dL Normal 5.7-8.2 [facility] ([place] Comment on above: Result Comment: No te - New Reference Range in effect 20 Performed By: #### G , 550167, DUANE, CMP, ANEU, ADIFF, CBC, PRO, SMUST, SMUSC, JOAQUIM, MG, HEPAC ####[place] [address] Urea nitrogen [Mass/Vol] 26.0 mg/dL High 8.0-22.0 [facility] ([place] Comment on above: Performed By: #### G , 561836, DUANE, CMP, ANEU, ADIFF, CBC, PRO, SMUST, SMUSC, JOAQUIM, MG, HEPAC ####[place] [address] HEPACon 06-26-2024 Hep A IgM Ab Non-Reactive Normal Non-Reacti ve [facility] ([place] Comment on above: Performed By: #### G , 877666, DUANE, CMP, ANEU, ADIFF, CBC, PRO, SMUST, SMUSC, JOAQUIM, MG, HEPAC ####[place] [address] Hep A IgM Ab Int Normal [facility] ([place] Comment on above: Result Comment: No s erological evidence of a current Hepatitis A infection.See Interp Performed By: #### G , 113294, DUANE, CMP, ANEU, ADIFF, CBC, PRO, SMUST, SMUSC, JOAQUIM, MG, HEPAC ####[place] [address] Hep B Core IgM Ab Non-Reactive [facility] ([place] Comment on above: Performed By: #### G FR, 037600, DUANE, CMP, ANEU, ADIFF, CBC, PRO, SMUST, SMUSC, JOAQUIM, MG, HEPAC ####[place] [address] Hep B Core IgM Ab Int [facility] ([place]) Comment on above: Result Comment: Samp les with a value < 0.80 Index are considered nonreactive (negative) for IgM antibodies to hepatitis B core antigen.See Interp Performed By: #### G FR, [id number], DUANE, CMP, ANEU, ADIFF, CBC, PRO, SMUST, SMUSC, JOAQUIM, MG, HEPAC ####[place] [address] Hep B Surf Ag Non-Reactive [facility] ([place] Comment on above: Performed By: #### G FR, 176151, DUANE, CMP, ANEU, ADIFF, CBC, PRO, SMUST, SMUSC, JOAQUIM, MG, HEPAC ####[place] [address] Hep C Ab Non-Reactive [facility] ([place] Comment on above: Performed By: #### G FR, [id number], DUANE, CMP, ANEU, ADIFF, CBC, PRO, SMUST, SMUSC, JOAQUIM, MG, HEPAC ####[place] [address] Hep C Ab Int [facility] ([place]) Comment on above: Result Comment: Nonr eactive: Samples with a value < 0.80 are considered nonreactive (negative) for antibodies to HCV.A negative test result does not exclude the possibility of exposure to or infection with HCV. HCV antibodies may be undetectable in some stages of the infection and in some clinical conditions.See Interp Performed By: #### G FR, 727986, DUANE, CMP, ANEU, ADIFF, CBC, PRO, SMUST, SMUSC, JOAQUIM, MG, HEPAC ####[facility] [place] [address] LABORATORYOrdered By: Louisa Mckenna on 06-26-2024 Blood Glucose Testing Reason Routine (06/26/24 9:03 PM) [facility] Work Phone: LABORATORYOrdered By: [employer] CONTRIBUTOR_SYSTEM on 06-26-2024 ALP [Catalytic activity/Vol] 2012 U/L High 44-121 [facility] Comment on above: Result Comment: Resu lts confirmed on dilution. ALP Bone Frac (LC) 32 % Invalid Interpretation Code 12-68 [facility] ALP Intest Frac (LC) 0 % Invalid Interpretation Code 0-18 [facility] Comment on above: Result Comment: Perf ormed At: [facility] [place] [id number] [place], [place] [id number] Farrah Mclaughlin PhD Ph:[phone] ALP Liver Frac (LC) 68 % Invalid Interpretation Code 13-88 [facility] LABORATORYOrdered By: LIAT IBARRA on 06-26-2024 Fasting (LC) Y Yes (06/26/24 8:05 AM) Normal [facility] Work Phone: LABORATORYOrdered By: Sunitha Ruano on 06-26-2024 HAV IgM IA Ql Non-Reactive (06/26/24 8:05 AM) Normal Non-Reacti ve AH ADM SS HAV IgM IA Ql No [...] 18 (06/26/24 8:05 AM) Normal Neg 20 Man [facility] SS Comment on above: Interpretive Data: M itochondrial Ab Screen and Titer methodology is an immunofluorescent technique utilizing MSK Substrate. Nuclear Ab IF Ql (S) Neg 40 3 (06/26/24 8:05 AM) Normal Neg 40 Man [facility] SS Comment on above: Interpretive Data: A NA Screen and Titer methodology is an immunofluorescent technique utilizing Hep2 Substrate. Smooth muscle Ab IF (S) [Titer] Pos 40 20 (06/26/24 8:05 AM) Normal [facility] Viro/Sero SS Comment on above: Interpretive Data: A n Anti-smooth muscle antibody (ASMA) of 1:160 or greater is seen in approximately 80% of patients with HBSAG-neg Chronic Active Hepatitis (CAH). Low ASMA titers may be present in viral infections, malignancies and normal individuals. Smooth muscle Ab IF Ql (S) See Titer 19 (06/26/24 8:05 AM) Normal Neg 20 [facility] Viro/Sero SS Comment on above: Interpretive Data: S mooth Muscle Ab Screen and Titer methodology is an immunofluorescent technique utilizing MSK Substrate. LABORATORYOrdered By: SYSTEM SYSTEM on 06-26-2024 PT Coag (PPP) [Time] 15.3 s High 9.0 - 1 4.4 seconds [facility] Comment on above: Interpretive Data: E ffective 06/02/08, Protime results may be affected by some antibiotics (i.e. Ciprofloxacin, Azithromycin, Bactrim) which may potentiate the action of oral anticoagulants, with further increases in Protime/INR. PT International Ratio 1.3 ratio Invalid Interpretation Code [facility] Comment on above: Interpretive Data: Simon briones [employer] (CHEST, 1992, 102:312S-25S) recommended therapeutic range for oral anticoagulant therapy is: LOW RISK: Prophylaxis of venous thrombosis INR: 2.0-3.0 Treatment of pulmonary embolism 2.0-3.0 Prevention of systemic embolism 2.0-3.0 HIGH RISK: Mechanical prosthetic valves 2.5-3.5 MGon 06-26-2024 Magnesium [Mass/Vol] 1.5 mg/dL Low 1.6-2.4 [facility] ([place] Comment on above: Performed By: #### G , [id number], DUANE, CMP, ANEU, ADIFF, CBC, PRO, SMUST, SMUSC, JOAQUIM, MG, HEPAC ####[place] [address] MRI MRCPon 06-26-2024 MRI MRCP Normal [facility] ([place]) PROon 06-26-2024 INR Coag (PPP) [Relative time] 1.3 {INR} Normal [facility] ([place] Comment on above: Result Comment: [employer] (CHEST, 1991, 102:312S-25S)recommended therapeutic range for oral anticoagulant therapy is:LOW RISK: Prophylaxis of venous thrombosis INR: 2.0-3.0 Treatment of pulmonary embolism 2.0-3.0 Prevention of systemic embolism 2.0-3.0HIGH RISK: Mechanical prosthetic valves 2.5-3.5 Performed By: #### G , 188592, DUANE, CMP, ANEU, ADIFF, CBC, PRO, SMUST, SMUSC, JOAQUIM, MG, HEPAC ####[place] [address] PT Coag (PPP) [Time] 15.3 s High 9.0-14.4 [facility] ([place] Comment on above: Result Comment: Effe ctive 06/02/08, Protime results may be affected by some antibiotics (i.e. Ciprofloxacin, Azithromycin, Bactrim) which may potentiate the action of oral anticoagulants, with further increases in Protime/INR. Performed By: #### G FR, 657651, DUANE, CMP, ANEU, ADIFF, CBC, PRO, SMUST, SMUSC, JOAQUIM, MG, HEPAC ####[address] [address] .Auto Diffon 06-25-2024 Basophil, Absolute 0.1 10 3/mcL Normal 0.0-0.3 [facility] ([place] Comment on above: Performed By: #### G FR, ADIFF, BMP, MG, CBC, ANEU ####[address] [address] Basophils/100 WBC (Bld) 0.7 % Normal 0.0-2.5 [facility] ([place]) Comment on above: Performed By: #### G FR, ADIFF, BMP, MG, CBC, ANEU ####[address] [address] Eosinophil, Absolute 0.3 10 3/mcL Normal 0.0-0.7 [facility] ([place]) Comment on above: Performed By: #### G FR, ADIFF, BMP, MG, CBC, ANEU ####[address] [address] Eosinophils/100 WBC (Bld) 3.2 % Normal 0.0-6.0 [facility] ([place] Comment on above: Performed By: #### G FR, ADIFF, BMP, MG, CBC, ANEU ####[address] [address] Lymphocyte, Absolute 2.0 10 3/mcL Normal 0.9-4.3 [facility] ([place] Comment on above: Performed By: #### G FR, ADIFF, BMP, MG, CBC, ANEU ####[address] [address] Lymphocytes/100 WBC (Bld) 19.1 % Low 20.0-40.0 [facility] ([place] Comment on above: Performed By: #### G FR, ADIFF, BMP, MG, CBC, ANEU ####[address] [address] Monocyte, Absolute 0.9 10 3/mcL Normal 0.1-1.4 [facility] ([place] Comment on above: Performed By: #### G FR, ADIFF, BMP, MG, CBC, ANEU ####[address] [address] Monocytes/100 WBC (Bld) 8.8 % Normal 2.0-13.0 [facility] ([place]) Comment on above: Performed By: #### G FR, ADIFF, BMP, MG, CBC, ANEU ####[address] [address] Neutrophils/100 WBC (Bld) 68.2 % Normal 50.0-75.0 [facility] ([place] Comment on above: Performed By: #### G FR, ADIFF, BMP, MG, CBC, ANEU ####[address] [address] .GFRon 06-25-2024 GFR 50 ml/min/1.73sqm Normal [facility] ([place] Comment on above: Result Comment: GFR Population [...] G FR, ADIFF, BMP, MG, CBC, ANEU ####[address] [address] GFR Non- 41 ml/min/1.73sqm Normal [facility] ([place] Comment on above: Result Comment: GFR Population [...] G FR, ADIFF, BMP, MG, CBC, ANEU ####[place] [address] .NEUABSon 06-25-2024 Neutrophil, Absolute 7.1 10 3/mcL Normal 2.3-8.1 [facility] ([place] Comment on above: Performed By: #### G FR, ADIFF, BMP, MG, CBC, ANEU ####[place] [address] ALKISOon 06-25-2024 Fasting Y Yes Normal [facility] ([place] Comment on above: Performed By: #### G FR, [id number], DUANE, CMP, ANEU, ADIFF, CBC, PRO, SMUST, SMUSC, JOAQUIM, MG, HEPAC ####[place] [address] BMPon 06-25-2024 BUN/Creatinine Ratio 14.5 ratio Normal 10.0-22.0 [facility] ([place] Comment on above: Performed By: #### G FR, ADIFF, BMP, MG, CBC, ANEU ####[place] [address] Calcium [Mass/Vol] 8.4 mg/dL Low 8.7-10.4 On license of [facility] ([place]) Comment on above: Performed By: #### G FR, ADIFF, BMP, MG, CBC, ANEU ####[place] [address] Chloride [Moles/Vol] 108 mmol/L Normal 98-110 [facility] ([place] Comment on above: Performed By: #### G FR, ADIFF, BMP, MG, CBC, ANEU ####[place] [address] CO2 [Moles/Vol] 24 mmol/L Normal 22-32 [facility] ([place] Comment on above: Performed By: #### G FR, ADIFF, BMP, MG, CBC, ANEU ####[place] [address] Creatinine [Mass/Vol] 1.79 mg/dL High 0.60-1.40 [facility] ([place] Comment on above: Performed By: #### G FR, ADIFF, BMP, MG, CBC, ANEU ####[place] [address] Electrolyte Balance 3.0 mEq/L Low 4.0-15.0 [facility] ([place] Comment on above: Performed By: #### G FR, ADIFF, BMP, MG, CBC, ANEU ####[place] [address] Glucose [Mass/Vol] 179 mg/dL High 70-110 On license of [facility] ([place] Comment on above: Performed By: #### G FR, ADIFF, BMP, MG, CBC, ANEU ####[place] [address] Potassium [Moles/Vol] 5.5 mmol/L High 3.5-5.0 [facility] ([place] Comment on above: Performed By: #### G FR, ADIFF, BMP, MG, CBC, ANEU ####[place] [address] Sodium [Moles/Vol] 135 mmol/L Low 136-145 On license of [facility] ([place]) Comment on above: Performed By: #### G FR, ADIFF, BMP, MG, CBC, ANEU ####[place] [address] Urea nitrogen [Mass/Vol] 26.0 mg/dL High 8.0-22.0 [facility] ([place] Comment on above: Performed By: #### G FR, ADIFF, BMP, MG, CBC, ANEU ####[place] [address] CBCon 06-25-2024 Erythrocyte distribution width (RBC) [Ratio] 19.8 % High 11.5-15.5 [facility] ([place] Comment on above: Performed By: #### G FR, ADIFF, BMP, MG, CBC, ANEU ####[place] [address] Hematocrit (Bld) [Volume fraction] 26.8 % Low 40.0-52.0 [facility] ([place] Comment on above: Performed By: #### G FR, ADIFF, BMP, MG, CBC, ANEU ####[place] [address] Hgb 8.9 G/dL Low 13.0-17.5 [facility] ([place] Comment on above: Performed By: #### G FR, ADIFF, BMP, MG, CBC, ANEU ####[place] [address] MCH (RBC) [Entitic mass] 27.4 pg Normal 27.0-33.0 [facility] ([place] Comment on above: Performed By: #### G FR, ADIFF, BMP, MG, CBC, ANEU ####[place] [address] MCHC 33.3 G/dL Normal 32.0-36.0 [facility] ([place] Comment on above: Performed By: #### G FR, ADIFF, BMP, MG, CBC, ANEU ####[place] [address] MCV (RBC) [Entitic vol] 82.3 fL Normal 81.0-100.0 [facility] ([place] Comment on above: Performed By: #### G FR, ADIFF, BMP, MG, CBC, ANEU ####[place] [address] Platelet 335 10 3/mcL Normal 150-450 [facility] ([place] Comment on above: Performed By: #### G FR, ADIFF, BMP, MG, CBC, ANEU ####[place] [address] Platelet mean volume (Bld) [Entitic vol] 7.8 fL Normal 6.4-10.5 [facility] ([place] Comment on above: Performed By: #### G FR, ADIFF, BMP, MG, CBC, ANEU ####[place] [address] RBC 3.25 10 6/mcL Low 4.50-6.00 [facility] ([place] Comment on above: Performed By: #### G FR, ADIFF, BMP, MG, CBC, ANEU ####[address] [address] WBC 10.4 10 3/mcL Normal 4.5-10.8 [facility] ([place] Comment on above: Performed By: #### G FR, ADIFF, BMP, MG, CBC, ANEU ####[address] [address] LABORATORYOrdered By: Louisa Mckenna on 06-25-2024 Blood Glucose Testing Reason Routine (06/25/24 8:51 PM) [facility] Work Phone: MGon 06-25-2024 Magnesium [Mass/Vol] 1.6 mg/dL Normal 1.6-2.4 [facility] ([place] Comment on above: Performed By: #### G FR, ADIFF, BMP, MG, CBC, ANEU ####[address] [address] .Auto Diffon 06-24-2024 Basophil, Absolute 0.1 10 3/mcL Normal 0.0-0.3 [facility] ([place] Comment on above: Performed By: #### A ARBEN, GFR, CBC, CMP, ADIFF, MG ####[address] [address] Basophils/100 WBC (Bld) 0.8 % Normal 0.0-2.5 [facility] ([place] Comment on above: Performed By: #### A ARBEN, GFR, CBC, CMP, ADIFF, MG ####[address] [address] Eosinophil, Absolute 0.3 10 3/mcL Normal 0.0-0.7 [facility] ([place] Comment on above: Performed By: #### A ARBEN, GFR, CBC, CMP, ADIFF, MG ####[address] [address] Eosinophils/100 WBC (Bld) 3.5 % Normal 0.0-6.0 [facility] ([place] Comment on above: Performed By: #### A ARBEN, GFR, CBC, CMP, ADIFF, MG ####[address] [address] Lymphocyte, Absolute 2.2 10 3/mcL Normal 0.9-4.3 [facility] ([place] Comment on above: Performed By: #### A ARBEN, GFR, CBC, CMP, ADIFF, MG ####[address] [address] Lymphocytes/100 WBC (Bld) 24.7 % Normal 20.0-40.0 [facility] ([place] Comment on above: Performed By: #### A ARBEN, GFR, CBC, CMP, ADIFF, MG ####[address] [address] Monocyte, Absolute 0.8 10 3/mcL Normal 0.1-1.4 [facility] ([place] Comment on above: Performed By: #### A ARBEN, GFR, CBC, CMP, ADIFF, MG ####[address] [address] Monocytes/100 WBC (Bld) 9.3 % Normal 2.0-13.0 [facility] ([place] Comment on above: Performed By: #### A ARBEN, GFR, CBC, CMP, ADIFF, MG ####[address] [address] Neutrophils/100 WBC (Bld) 61.7 % Normal 50.0-75.0 [facility] ([place] Comment on above: Performed By: #### A ARBEN, GFR, CBC, CMP, ADIFF, MG ####[address] [address] .GFRon 06-24-2024 GFR Non- 38 ml/min/1.73sqm Normal [facility] ([place] Comment on above: Result Comment: GFR Population [...] A ARBEN, GFR, CBC, CMP, ADIFF, MG ####[place] [address] GFR 47 ml/min/1.73sqm Normal [facility] ([place] Comment on above: Result Comment: GFR Population [...] A ARBEN, GFR, CBC, CMP, ADIFF, MG ####[place] [address] .NEUABSon 06-24-2024 Neutrophil, Absolute 5.6 10 3/mcL Normal 2.3-8.1 [facility] ([place] Comment on above: Performed By: #### A ARBEN, GFR, CBC, CMP, ADIFF, MG ####[place] [address] CBCon 06-24-2024 Erythrocyte distribution width (RBC) [Ratio] 19.0 % High 11.5-15.5 [facility] ([place] Comment on above: Performed By: #### A ARBEN, GFR, CBC, CMP, ADIFF, MG ####[place] [address] Hematocrit (Bld) [Volume fraction] 25.3 % Low 40.0-52.0 [facility] ([place] Comment on above: Performed By: #### A ARBEN, GFR, CBC, CMP, ADIFF, MG ####[place] [address] Hgb 8.3 G/dL Low 13.0-17.5 [facility] ([place] Comment on above: Performed By: #### A ARBEN, GFR, CBC, CMP, ADIFF, MG ####[place] [address] MCH (RBC) [Entitic mass] 27.0 pg Normal 27.0-33.0 [facility] ([place] Comment on above: Performed By: #### A ARBEN, GFR, CBC, CMP, ADIFF, MG ####[place] [address] MCHC 32.9 G/dL Normal 32.0-36.0 [facility] ([place] Comment on above: Performed By: #### A ARBEN, GFR, CBC, CMP, ADIFF, MG ####[place] [address] MCV (RBC) [Entitic vol] 82.2 fL Normal 81.0-100.0 [facility] ([place] Comment on above: Performed By: #### A ARBEN, GFR, CBC, CMP, ADIFF, MG ####[place] [address] Platelet 371 10 3/mcL Normal 150-450 [facility] ([place] Comment on above: Performed By: #### A ARBEN, GFR, CBC, CMP, ADIFF, MG ####[place] [address] Platelet mean volume (Bld) [Entitic vol] 7.3 fL Normal 6.4-10.5 [facility] ([place] Comment on above: Performed By: #### A ARBEN, GFR, CBC, CMP, ADIFF, MG ####[place] [address] RBC 3.08 10 6/mcL Low 4.50-6.00 [facility] ([place] Comment on above: Performed By: #### A ARBEN, GFR, CBC, CMP, ADIFF, MG ####[place] [address] WBC 9.0 10 3/mcL Normal 4.5-10.8 [facility] ([place] Comment on above: Performed By: #### A ARBEN, GFR, CBC, CMP, ADIFF, MG ####[place] [address] CMPon 06-24-2024 Albumin Level 1.3 G/dL Low 3.2-4.8 [facility] ([place] Comment on above: Performed By: #### A ARBEN, GFR, CBC, CMP, ADIFF, MG ####[place] [address] Albumin/Globulin [Mass ratio] 0.3 {ratio} Low 0.9-1.6 [facility] ([place] Comment on above: Performed By: #### A ARBEN, GFR, CBC, CMP, ADIFF, MG ####[place] [address] ALP [Catalytic activity/Vol] 1826 U/L High 38-126 [facility] ([place] Comment on above: Performed By: #### A ARBEN, GFR, CBC, CMP, ADIFF, MG ####[address] [address] ALT [Catalytic activity/Vol] 81 U/L High 12-55 [facility] ([place] Comment on above: Performed By: #### A ARBEN, GFR, CBC, CMP, ADIFF, MG ####[address] [address] AST [Catalytic activity/Vol] 137 U/L High 8-34 [facility] ([place] Comment on above: Performed By: #### A ARBEN, GFR, CBC, CMP, ADIFF, MG ####[place] [address] Bili Total 0.30 mg/dL Normal 0.20-1.20 [facility] ([place] Comment on above: Result Comment: Use of this assay is not recommended for patients undergoing treatment with eltrombopag due to the potential for falsely elevated results. Performed By: #### A ARBEN, GFR, CBC, CMP, ADIFF, MG ####[place] [address] BUN/Creatinine Ratio 12.2 ratio Normal 10.0-22.0 [facility] ([place] Comment on above: Performed By: #### A ARBEN, GFR, CBC, CMP, ADIFF, MG ####[address] [address] Calcium [Mass/Vol] 8.0 mg/dL Low 8.7-10.4 On license of [facility] ([place]) Comment on above: Performed By: #### A ARBEN, GFR, CBC, CMP, ADIFF, MG ####[address] [address] Chloride [Moles/Vol] 110 mmol/L Normal 98-110 [facility] ([place] Comment on above: Performed By: #### A ARBEN, GFR, CBC, CMP, ADIFF, MG ####[place] [id number] CO2 [Moles/Vol] 23 mmol/L Normal 22-32 [facility] ([place] Comment on above: Performed By: #### A ARBEN, GFR, CBC, CMP, ADIFF, MG ####[place] [address] Creatinine [Mass/Vol] 1.89 mg/dL High 0.60-1.40 [facility] ([place] Comment on above: Performed By: #### A ARBEN, GFR, CBC, CMP, ADIFF, MG ####[address] [address] Electrolyte Balance 5.0 mEq/L Normal 4.0-15.0 [facility] ([place] Comment on above: Performed By: #### A ARBEN, GFR, CBC, CMP, ADIFF, MG ####[address] [address] Globulin 5.0 G/dL High 1.5-3.8 [facility] ([place]) Comment on above: Performed By: #### A ARBEN, GFR, CBC, CMP, ADIFF, MG ####[address] [address] Glucose [Mass/Vol] 120 mg/dL High 70-110 On license of [facility] ([place]) Comment on above: Performed By: #### A ARBEN, GFR, CBC, CMP, ADIFF, MG ####[address] [address] Potassium [Moles/Vol] 5.1 mmol/L High 3.5-5.0 [facility] ([place]) Comment on above: Performed By: #### A ARBEN, GFR, CBC, CMP, ADIFF, MG ####[address] [address] Sodium [Moles/Vol] 138 mmol/L Normal 136-145 On license of [facility] ([place]) Comment on above: Performed By: #### A ARBEN, GFR, CBC, CMP, ADIFF, MG ####[place] [address] Total Protein 6.3 G/dL Normal 5.7-8.2 [facility] ([place]) Comment on above: Result Comment: No te - New Reference Range in effect 20 Performed By: #### A ARBEN, GFR, CBC, CMP, ADIFF, MG ####[address] [address] Urea nitrogen [Mass/Vol] 23.0 mg/dL High 8.0-22.0 [facility] ([place] Comment on above: Performed By: #### A ARBEN, GFR, CBC, CMP, ADIFF, MG ####[address] [address] GGTon 06-24-2024 Gamma GT 645 U/L High 15-85 [facility] ([place] Comment on above: Performed By: #### G GT ####[address] [address] LABORATORYOrdered By: SYSTEM SYSTEM on 06-24-2024 Gamma glutamyl transferase [Catalytic activity/Vol] 645 U/L High 15 - 85 U/L AH ADM SS MGon 06-24-2024 Magnesium [Mass/Vol] 1.8 mg/dL Normal 1.6-2.4 [facility] ([place] Comment on above: Performed By: #### A ARBEN, GFR, CBC, CMP, ADIFF, MG ####[address] [address] .Auto Diffon 06-23-2024 Basophil, Absolute 0.1 10 3/mcL Normal 0.0-0.3 [facility] ([place] Comment on above: Performed By: #### G FR, CBC, MG, CMP, ANEU, ADIFF ####[address] [address] Basophils/100 WBC (Bld) 0.8 % Normal 0.0-2.5 [facility] ([place]) Comment on above: Performed By: #### G FR, CBC, MG, CMP, ANEU, ADIFF ####[address] [address] Eosinophil, Absolute 0.2 10 3/mcL Normal 0.0-0.7 [facility] ([place]) Comment on above: Performed By: #### G FR, CBC, MG, CMP, ANEU, ADIFF ####[address] [address] Eosinophils/100 WBC (Bld) 3.1 % Normal 0.0-6.0 [facility] ([place] Comment on above: Performed By: #### G FR, CBC, MG, CMP, ANEU, ADIFF ####[address] [address] Lymphocyte, Absolute 1.8 10 3/mcL Normal 0.9-4.3 [facility] ([place] Comment on above: Performed By: #### G FR, CBC, MG, CMP, ANEU, ADIFF ####[address] [address] Lymphocytes/100 WBC (Bld) 22.9 % Normal 20.0-40.0 [facility] ([place] Comment on above: Performed By: #### G FR, CBC, MG, CMP, ANEU, ADIFF ####[address] [address] Monocyte, Absolute 0.8 10 3/mcL Normal 0.1-1.4 [facility] ([place] Comment on above: Performed By: #### G FR, CBC, MG, CMP, ANEU, ADIFF ####[place] [id number] [place] [address] Monocytes/100 WBC (Bld) 9.6 % Normal 2.0-13.0 [facility] ([place]) Comment on above: Performed By: #### G FR, CBC, MG, CMP, ANEU, ADIFF ####[place] [id number] [place] [address] Neutrophils/100 WBC (Bld) 63.6 % Normal 50.0-75.0 [facility] ([place] Comment on above: Performed By: #### G FR, CBC, MG, CMP, ANEU, ADIFF ####[address] [address] .GFRon 06-23-2024 GFR Non- 37 ml/min/1.73sqm Normal [facility] ([place] Comment on above: Result Comment: GFR Population [...] G FR, CBC, MG, CMP, ANEU, ADIFF ####[place] [id number] [place] [address] GFR 44 ml/min/1.73sqm Normal [facility] ([place] Comment on above: Result Comment: GFR Population [...] G FR, CBC, MG, CMP, ANEU, ADIFF ####[place] [address] .NEUABSon 06-23-2024 Neutrophil, Absolute 5.0 10 3/mcL Normal 2.3-8.1 [facility] ([place] Comment on above: Performed By: #### G FR, CBC, MG, CMP, ANEU, ADIFF ####[place] [address] CBCon 06-23-2024 Erythrocyte distribution width (RBC) [Ratio] 19.3 % High 11.5-15.5 [facility] ([place] Comment on above: Performed By: #### G FR, CBC, MG, CMP, ANEU, ADIFF ####[place] [address] Hematocrit (Bld) [Volume fraction] 24.1 % Low 40.0-52.0 [facility] ([place] Comment on above: Performed By: #### G FR, CBC, MG, CMP, ANEU, ADIFF ####[place] [address] Hgb 8.0 G/dL Low 13.0-17.5 [facility] ([place] Comment on above: Performed By: #### G FR, CBC, MG, CMP, ANEU, ADIFF ####[place] [address] MCH (RBC) [Entitic mass] 27.0 pg Normal 27.0-33.0 [facility] ([place] Comment on above: Performed By: #### G FR, CBC, MG, CMP, ANEU, ADIFF ####[place] [address] MCHC 33.2 G/dL Normal 32.0-36.0 [facility] ([place] Comment on above: Performed By: #### G FR, CBC, MG, CMP, ANEU, ADIFF ####[place] [address] MCV (RBC) [Entitic vol] 81.3 fL Normal 81.0-100.0 [facility] ([place] Comment on above: Performed By: #### G FR, CBC, MG, CMP, ANEU, ADIFF ####[place] [address] Platelet 371 10 3/mcL Normal 150-450 [facility] ([place] Comment on above: Performed By: #### G FR, CBC, MG, CMP, ANEU, ADIFF ####[place] [address] Platelet mean volume (Bld) [Entitic vol] 7.0 fL Normal 6.4-10.5 [facility] ([place] Comment on above: Performed By: #### G FR, CBC, MG, CMP, ANEU, ADIFF ####[place] [address] RBC 2.97 10 6/mcL Low 4.50-6.00 [facility] ([place] Comment on above: Performed By: #### G FR, CBC, MG, CMP, ANEU, ADIFF ####[place] [address] WBC 7.9 10 3/mcL Normal 4.5-10.8 [facility] ([place] Comment on above: Performed By: #### G FR, CBC, MG, CMP, ANEU, ADIFF ####[place] [address] CBLon 06-23-2024 CBL Normal [facility] ([place]) CMPon 06-23-2024 Albumin Level 1.2 G/dL Low 3.2-4.8 [facility] ([place] Comment on above: Performed By: #### G FR, CBC, MG, CMP, ANEU, ADIFF ####[place] [address] Albumin/Globulin [Mass ratio] 0.2 {ratio} Low 0.9-1.6 [facility] ([place] Comment on above: Performed By: #### G FR, CBC, MG, CMP, ANEU, ADIFF ####[place] [address] ALP [Catalytic activity/Vol] 1608 U/L High 38-126 [facility] ([place] Comment on above: Performed By: #### G FR, CBC, MG, CMP, ANEU, ADIFF ####[place] [id number] ALT [Catalytic activity/Vol] 50 U/L Normal 12-55 [facility] ([place] Comment on above: Performed By: #### G FR, CBC, MG, CMP, ANEU, ADIFF ####[place] [id number] AST [Catalytic activity/Vol] 67 U/L High 8-34 [facility] ([place] Comment on above: Performed By: #### G FR, CBC, MG, CMP, ANEU, ADIFF ####[place] [address] Bili Total 0.20 mg/dL Normal 0.20-1.20 [facility] ([place] Comment on above: Result Comment: Use of this assay is not recommended for patients undergoing treatment with eltrombopag due to the potential for falsely elevated results. Performed By: #### G FR, CBC, MG, CMP, ANEU, ADIFF ####[place] [address] BUN/Creatinine Ratio 12.2 ratio Normal 10.0-22.0 [facility] ([place] Comment on above: Performed By: #### G FR, CBC, MG, CMP, ANEU, ADIFF ####[place] [address] Calcium [Mass/Vol] 8.0 mg/dL Low 8.7-10.4 On license of [facility] ([place] Comment on above: Performed By: #### G FR, CBC, MG, CMP, ANEU, ADIFF ####[address] [address] Chloride [Moles/Vol] 111 mmol/L High 98-110 [facility] [place] Comment on above: Performed By: #### G FR, CBC, MG, CMP, ANEU, ADIFF ####[address] [address] CO2 [Moles/Vol] 23 mmol/L Normal 22-32 [facility] [place] Comment on above: Performed By: #### G FR, CBC, MG, CMP, ANEU, ADIFF ####[address] [address] Creatinine [Mass/Vol] 1.97 mg/dL High 0.60-1.40 [facility] ([place] Comment on above: Performed By: #### G FR, CBC, MG, CMP, ANEU, ADIFF ####[place] [address] Electrolyte Balance 2.0 mEq/L Low 4.0-15.0 [facility] ([place] Comment on above: Performed By: #### G FR, CBC, MG, CMP, ANEU, ADIFF ####[address] [address] Globulin 5.1 G/dL High 1.5-3.8 [facility] [place] Comment on above: Performed By: #### G FR, CBC, MG, CMP, ANEU, ADIFF ####[address] [address] Glucose [Mass/Vol] 140 mg/dL High 70-110 On license of [facility] ([place] Comment on above: Performed By: #### G FR, CBC, MG, CMP, ANEU, ADIFF ####[address] [address] Potassium [Moles/Vol] 5.0 mmol/L Normal 3.5-5.0 [facility] ([place] Comment on above: Performed By: #### G FR, CBC, MG, CMP, ANEU, ADIFF ####[address] [address] Sodium [Moles/Vol] 136 mmol/L Normal 136-145 On license of [facility] ([place] Comment on above: Performed By: #### G FR, CBC, MG, CMP, ANEU, ADIFF ####[address] [address] Total Protein 6.3 G/dL Normal 5.7-8.2 [facility] [place] Comment on above: Result Comment: No te - New Reference Range in effect 20 Performed By: #### G FR, CBC, MG, CMP, ANEU, ADIFF ####[place] [address] Urea nitrogen [Mass/Vol] 24.0 mg/dL High 8.0-22.0 [facility] [place] Comment on above: Performed By: #### G FR, CBC, MG, CMP, ANEU, ADIFF ####[place] [address] IR ASPIRATION/DRAINAGEon IR ASPIRATION/DRAINAGE Normal [facility] ([place]) LABORATORYOrdered By: Aleksey Barajas on 06-23-2024 LDose Vancomycin:(trough) See eMAR (06/23/24 10:35 PM) Normal Chemistry S LABORATORYOrdered By: SYSTEM SYSTEM on 06-23-2024 Vancomycin trough [Mass/Vol] 20.8 ug/mL Invalid Interpretation Code 5.0 - 20.0 mcg/mL ADM SS MGon 06-23-2024 Magnesium [Mass/Vol] 1.9 mg/dL Normal 1.6-2.4 [facility] ([place] Comment on above: Performed By: #### G FR, CBC, MG, CMP, ANEU, ADIFF ####[address] [address] US ABDOMEN LIMITEDon 024 US ABDOMEN LIMITED Normal On license of [facility] ([place] VANCTon 06-23-2024 LDose Vancomycin:(trough) See eMAR Normal [facility] ([place] Comment on above: Performed By: #### V ANCT ####[place] [address] Vancomycin Tr 20.8 mcg/mL Critically abnormal 5.0-20.0 [facility] ([place] Comment on above: Performed By: #### V ANCT ####[address] [address] .Auto Diffon 06-22-2024 Basophil, Absolute 0.1 10 3/mcL Normal 0.0-0.3 [facility] ([place] Comment on above: Performed By: #### A DIFF, CMP, ANEU, CBC, GFR, MG ####[address] [address] Basophils/100 WBC (Bld) 0.7 % Normal 0.0-2.5 [facility] ([place] Comment on above: Performed By: #### A DIFF, CMP, ANEU, CBC, GFR, MG ####[place] [address] Eosinophil, Absolute 0.3 10 3/mcL Normal 0.0-0.7 [facility] ([place] Comment on above: Performed By: #### A DIFF, CMP, ANEU, CBC, GFR, MG ####[address] [address] Eosinophils/100 WBC (Bld) 3.9 % Normal 0.0-6.0 [facility] ([place] Comment on above: Performed By: #### A DIFF, CMP, ANEU, CBC, GFR, MG ####[place] [address] Lymphocyte, Absolute 1.8 10 3/mcL Normal 0.9-4.3 [facility] ([place] Comment on above: Performed By: #### A DIFF, CMP, ANEU, CBC, GFR, MG ####[address] [address] Lymphocytes/100 WBC (Bld) 23.8 % Normal 20.0-40.0 [facility] [place] Comment on above: Performed By: #### A DIFF, CMP, ANEU, CBC, GFR, MG ####[place] [address] Monocyte, Absolute 0.8 10 3/mcL Normal 0.1-1.4 [facility] ([place] Comment on above: Performed By: #### A DIFF, CMP, ANEU, CBC, GFR, MG ####[address] [address] Monocytes/100 WBC (Bld) 10.5 % Normal 2.0-13.0 [facility] [place] Comment on above: Performed By: #### A DIFF, CMP, ANEU, CBC, GFR, MG ####[address] [address] Neutrophils/100 WBC (Bld) 61.1 % Normal 50.0-75.0 [facility] [place] Comment on above: Performed By: #### A DIFF, CMP, ANEU, CBC, GFR, MG ####[address] [address] .GFRon 06-22-2024 GFR 43 ml/min/1.73sqm Normal [facility] ([place] Comment on above: Result Comment: GFR Population [...] A DIFF, CMP, ANEU, CBC, GFR, MG ####[address] [address] GFR Non- 35 ml/min/1.73sqm Normal [facility] ([place] Comment on above: Result Comment: GFR Population [...] A DIFF, CMP, ANEU, CBC, GFR, MG ####[place] [address] .NEUABSon 06-22-2024 Neutrophil, Absolute 4.6 10 3/mcL Normal 2.3-8.1 [facility] ([place] Comment on above: Performed By: #### A DIFF, CMP, ANEU, CBC, GFR, MG ####[place] [address] APTTon 06-22-2024 aPTT Coag (Bld) [Time] 53.4 s High 25.0-35.0 [facility] ([place] Comment on above: Result Comment: For Heparin anticoagulation therapy, the recommendedtherapeutic range is: 54-77 seconds (APTT Correlationwith Anti-Xa therapeutic range of 0.3-0.7 units/ml).PLEASE REFERENCE THE PHARMACY PROTOCOL FOR DOSING. Performed By: #### A PTT ####[place] [address] aPTT Coag (Bld) [Time] 44.6 s High 25.0-35.0 [facility] ([place] Comment on above: Result Comment: For Heparin anticoagulation therapy, the recommendedtherapeutic range is: 54-77 seconds (APTT Correlationwith Anti-Xa therapeutic range of 0.3-0.7 units/ml).PLEASE REFERENCE THE PHARMACY PROTOCOL FOR DOSING. Performed By: #### A PTT ####[place] [address] aPTT Coag (Bld) [Time] 43.7 s High 25.0-35.0 [facility] ([place] Comment on above: Result Comment: For Heparin anticoagulation therapy, the recommendedtherapeutic range is: 54-77 seconds (APTT Correlationwith Anti-Xa therapeutic range of 0.3-0.7 units/ml).PLEASE REFERENCE THE PHARMACY PROTOCOL FOR DOSING. Performed By: #### A PTT ####[place] [address] CBCon 06-22-2024 Erythrocyte distribution width (RBC) [Ratio] 19.0 % High 11.5-15.5 [facility] ([place] Comment on above: Performed By: #### A DIFF, CMP, ANEU, CBC, GFR, MG ####[place] [address] Hematocrit (Bld) [Volume fraction] 23.2 % Low 40.0-52.0 [facility] [place] Comment on above: Performed By: #### A DIFF, CMP, ANEU, CBC, GFR, MG ####[place] [address] Hgb 7.6 G/dL Low 13.0-17.5 [facility] ([place] Comment on above: Performed By: #### A DIFF, CMP, ANEU, CBC, GFR, MG ####[place] [address] MCH (RBC) [Entitic mass] 26.6 pg Low 27.0-33.0 [facility] ([place] Comment on above: Performed By: #### A DIFF, CMP, ANEU, CBC, GFR, MG ####[place] [address] MCHC 32.8 G/dL Normal 32.0-36.0 [facility] ([place] Comment on above: Performed By: #### A DIFF, CMP, ANEU, CBC, GFR, MG ####[place] [address] MCV (RBC) [Entitic vol] 81.1 fL Normal 81.0-100.0 [facility] ([place] Comment on above: Performed By: #### A DIFF, CMP, ANEU, CBC, GFR, MG ####[place] [address] Platelet 402 10 3/mcL Normal 150-450 [facility] ([place] Comment on above: Performed By: #### A DIFF, CMP, ANEU, CBC, GFR, MG ####[place] [address] Platelet mean volume (Bld) [Entitic vol] 7.1 fL Normal 6.4-10.5 [facility] ([place] Comment on above: Performed By: #### A DIFF, CMP, ANEU, CBC, GFR, MG ####[place] [address] RBC 2.86 10 6/mcL Low 4.50-6.00 [facility] ([place] Comment on above: Performed By: #### A DIFF, CMP, ANEU, CBC, GFR, MG ####[place] [address] WBC 7.5 10 3/mcL Normal 4.5-10.8 [facility] ([place] Comment on above: Performed By: #### A DIFF, CMP, ANEU, CBC, GFR, MG ####[place] [address] CMPon 06-22-2024 Albumin Level 1.2 G/dL Low 3.2-4.8 [facility] ([place] Comment on above: Performed By: #### A DIFF, CMP, ANEU, CBC, GFR, MG ####[place] [address] Albumin/Globulin [Mass ratio] 0.3 {ratio} Low 0.9-1.6 [facility] ([place] Comment on above: Performed By: #### A DIFF, CMP, ANEU, CBC, GFR, MG ####[place] [address] ALP [Catalytic activity/Vol] 1525 U/L High 38-126 [facility] ([place] Comment on above: Performed By: #### A DIFF, CMP, ANEU, CBC, GFR, MG ####[place] [address] ALT [Catalytic activity/Vol] 38 U/L Normal 12-55 [facility] ([place] Comment on above: Performed By: #### A DIFF, CMP, ANEU, CBC, GFR, MG ####[address] [address] AST [Catalytic activity/Vol] 48 U/L High 8-34 [facility] ([place] Comment on above: Performed By: #### A DIFF, CMP, ANEU, CBC, GFR, MG ####[address] [address] Bili Total 0.20 mg/dL Normal 0.20-1.20 [facility] ([place] Comment on above: Result Comment: Use of this assay is not recommended for patients undergoing treatment with eltrombopag due to the potential for falsely elevated results. Performed By: #### A DIFF, CMP, ANEU, CBC, GFR, MG ####[place] [address] BUN/Creatinine Ratio 13.7 ratio Normal 10.0-22.0 [facility] ([place] Comment on above: Performed By: #### A DIFF, CMP, ANEU, CBC, GFR, MG ####[place] [address] Calcium [Mass/Vol] 7.6 mg/dL Low 8.7-10.4 On license of [facility] ([place] Comment on above: Performed By: #### A DIFF, CMP, ANEU, CBC, GFR, MG ####[address] [address] Chloride [Moles/Vol] 109 mmol/L Normal 98-110 [facility] ([place] Comment on above: Performed By: #### A DIFF, CMP, ANEU, CBC, GFR, MG ####[address] [address] CO2 [Moles/Vol] 23 mmol/L Normal 22-32 [facility] ([place] Comment on above: Performed By: #### A DIFF, CMP, ANEU, CBC, GFR, MG ####[address] [address] Creatinine [Mass/Vol] 2.04 mg/dL High 0.60-1.40 [facility] ([place] Comment on above: Performed By: #### A DIFF, CMP, ANEU, CBC, GFR, MG ####[address] [address] Electrolyte Balance 5.0 mEq/L Normal 4.0-15.0 [facility] ([place] Comment on above: Performed By: #### A DIFF, CMP, ANEU, CBC, GFR, MG ####[address] [address] Globulin 4.6 G/dL High 1.5-3.8 [facility] ([place] Comment on above: Performed By: #### A DIFF, CMP, ANEU, CBC, GFR, MG ####[address] [address] Glucose [Mass/Vol] 172 mg/dL High 70-110 On license of [facility] ([place] Comment on above: Performed By: #### A DIFF, CMP, ANEU, CBC, GFR, MG ####[place] [address] Potassium [Moles/Vol] 4.3 mmol/L Normal 3.5-5.0 [facility] ([place] Comment on above: Performed By: #### A DIFF, CMP, ANEU, CBC, GFR, MG ####[address] [address] Sodium [Moles/Vol] 137 mmol/L Normal 136-145 On license of [facility] ([place] Comment on above: Performed By: #### A DIFF, CMP, ANEU, CBC, GFR, MG ####[address] [address] Total Protein 5.8 G/dL Normal 5.7-8.2 [facility] ([place] Comment on above: Result Comment: No te - New Reference Range in effect 20 Performed By: #### A DIFF, CMP, ANEU, CBC, GFR, MG ####[address] [address] Urea nitrogen [Mass/Vol] 28.0 mg/dL High 8.0-22.0 [facility] ([place] Comment on above: Performed By: #### A DIFF, CMP, ANEU, CBC, GFR, MG ####[place] [address] LABORATORYOrdered By: SYSTEM SYSTEM on 06-22-2024 aPTT Coag (Bld) [Time] 53.4 s High 25.0 - 35.0 seconds [employer] [...] 06-22-2024 Magnesium [Mass/Vol] 1.8 mg/dL Normal 1.6-2.4 [facility] [place] Comment on above: Performed By: #### A DIFF, CMP, ANEU, CBC, GFR, MG ####[address] 06-22-2024 LDose Vancomycin:(trough) See eMAR Normal [facility] ([place] Comment on above: Performed By: #### V ANCT ####[place] [address] Vancomycin Tr 20.0 mcg/mL Normal 5.0-20.0 [facility] ([place] Comment on above: Performed By: #### V ANCT ####[address] [address] .Auto Diffon 06-21-2024 Basophil, Absolute 0.0 10 3/mcL Normal 0.0-0.3 [facility] ([place] Comment on above: Performed By: #### A ARBEN, CBC, ADIFF, GFR, CMP, MG ####[address] [address] Basophils/100 WBC (Bld) 0.6 % Normal 0.0-2.5 [facility] ([place] Comment on above: Performed By: #### A ARBEN, CBC, ADIFF, GFR, CMP, MG ####[address] [address] Eosinophil, Absolute 0.3 10 3/mcL Normal 0.0-0.7 [facility] ([place] Comment on above: Performed By: #### A ARBEN, CBC, ADIFF, GFR, CMP, MG ####[address] [address] Eosinophils/100 WBC (Bld) 4.2 % Normal 0.0-6.0 [facility] ([place] Comment on above: Performed By: #### A ARBEN, CBC, ADIFF, GFR, CMP, MG ####[place] [address] Lymphocyte, Absolute 1.8 10 3/mcL Normal 0.9-4.3 [facility] ([place] Comment on above: Performed By: #### A ARBEN, CBC, ADIFF, GFR, CMP, MG ####[address] [address] Lymphocytes/100 WBC (Bld) 23.6 % Normal 20.0-40.0 [facility] ([place] Comment on above: Performed By: #### A ARBEN, CBC, ADIFF, GFR, CMP, MG ####[address] [address] Monocyte, Absolute 0.7 10 3/mcL Normal 0.1-1.4 [facility] ([place] Comment on above: Performed By: #### A ARBEN, CBC, ADIFF, GFR, CMP, MG ####[address] [address] Monocytes/100 WBC (Bld) 9.4 % Normal 2.0-13.0 [facility] ([place] Comment on above: Performed By: #### A ARBEN, CBC, ADIFF, GFR, CMP, MG ####[address] [address] Neutrophils/100 WBC (Bld) 62.2 % Normal 50.0-75.0 [facility] ([place] Comment on above: Performed By: #### A ARBEN, CBC, ADIFF, GFR, CMP, MG ####[address] [address] .GFRon 06-21-2024 GFR 38 ml/min/1.73sqm Normal [facility] ([place] Comment on above: Result Comment: GFR Population [...] A ARBEN, CBC, ADIFF, GFR, CMP, MG ####[address] [address] GFR Non- 32 ml/min/1.73sqm Normal [facility] ([place] Comment on above: Result Comment: GFR Population [...] A ARBEN, CBC, ADIFF, GFR, CMP, MG ####[place] [address] .NEUABSon 06-21-2024 Neutrophil, Absolute 4.6 10 3/mcL Normal 2.3-8.1 [facility] ([place] Comment on above: Performed By: #### A ARBEN, CBC, ADIFF, GFR, CMP, MG ####[place] [address] APTTon 06-21-2024 aPTT Coag (Bld) [Time] 44.1 s High 25.0-35.0 [facility] ([place] Comment on above: Result Comment: For Heparin anticoagulation therapy, the recommendedtherapeutic range is: 54-77 seconds (APTT Correlationwith Anti-Xa therapeutic range of 0.3-0.7 units/ml).PLEASE REFERENCE THE PHARMACY PROTOCOL FOR DOSING. Performed By: #### A PTT ####[place] [address] CBCon 06-21-2024 Erythrocyte distribution width (RBC) [Ratio] 19.1 % High 11.5-15.5 [facility] ([place] Comment on above: Performed By: #### A ARBEN, CBC, ADIFF, GFR, CMP, MG ####[place] [address] Hematocrit (Bld) [Volume fraction] 22.5 % Low 40.0-52.0 [facility] ([place] Comment on above: Performed By: #### A ARBEN, CBC, ADIFF, GFR, CMP, MG ####[place] [address] Hgb 7.4 G/dL Low 13.0-17.5 [facility] ([place] Comment on above: Performed By: #### A ARBEN, CBC, ADIFF, GFR, CMP, MG ####[place] [address] MCH (RBC) [Entitic mass] 27.1 pg Normal 27.0-33.0 [facility] ([place] Comment on above: Performed By: #### A ARBEN, CBC, ADIFF, GFR, CMP, MG ####[place] [address] MCHC 32.9 G/dL Normal 32.0-36.0 [facility] ([place] Comment on above: Performed By: #### A ARBEN, CBC, ADIFF, GFR, CMP, MG ####[place] [address] MCV (RBC) [Entitic vol] 82.4 fL Normal 81.0-100.0 [facility] [place] Comment on above: Performed By: #### A ARBEN, CBC, ADIFF, GFR, CMP, MG ####[place] [address] Platelet 427 10 3/mcL Normal 150-450 [facility] ([place] Comment on above: Performed By: #### A ARBEN, CBC, ADIFF, GFR, CMP, MG ####[place] [address] Platelet mean volume (Bld) [Entitic vol] 6.9 fL Normal 6.4-10.5 [facility] ([place] Comment on above: Performed By: #### A ARBEN, CBC, ADIFF, GFR, CMP, MG ####[place] [address] RBC 2.73 10 6/mcL Low 4.50-6.00 [facility] ([place]) Comment on above: Performed By: #### A ARBEN, CBC, ADIFF, GFR, CMP, MG ####[place] [address] WBC 7.5 10 3/mcL Normal 4.5-10.8 [facility] ([place]) Comment on above: Performed By: #### A ARBEN, CBC, ADIFF, GFR, CMP, MG ####[address] [address] CMPon 06-21-2024 Albumin Level 1.2 G/dL Low 3.2-4.8 [facility] [facility] ([place]) Comment on above: Performed By: #### A ARBEN, CBC, ADIFF, GFR, CMP, MG ####[place] [id number] Albumin/Globulin [Mass ratio] 0.2 {ratio} Low 0.9-1.6 [facility] ([place]) Comment on above: Performed By: #### A ARBEN, CBC, ADIFF, GFR, CMP, MG ####[place] [id number] ALP [Catalytic activity/Vol] 1722 U/L High 38-126 [facility] ([place] Comment on above: Performed By: #### A ARBEN, CBC, ADIFF, GFR, CMP, MG ####[place] [id number] ALT [Catalytic activity/Vol] 35 U/L Normal 12-55 [facility] ([place] Comment on above: Performed By: #### A ARBEN, CBC, ADIFF, GFR, CMP, MG ####[place] [id number] AST [Catalytic activity/Vol] 68 U/L High 8-34 [facility] ([place] Comment on above: Performed By: #### A ARBEN, CBC, ADIFF, GFR, CMP, MG ####[place] [id number] Bili Total 0.20 mg/dL Normal 0.20-1.20 [facility] ([place] Comment on above: Result Comment: Use of this assay is not recommended for patients undergoing treatment with eltrombopag due to the potential for falsely elevated results. Performed By: #### A ARBEN, CBC, ADIFF, GFR, CMP, MG ####[place] [address] BUN/Creatinine Ratio 15.2 ratio Normal 10.0-22.0 [facility] ([place]) Comment on above: Performed By: #### A ARBEN, CBC, ADIFF, GFR, CMP, MG ####[address] [address] Calcium [Mass/Vol] 7.8 mg/dL Low 8.7-10.4 On license of [facility] ([place]) Comment on above: Performed By: #### A ARBEN, CBC, ADIFF, GFR, CMP, MG ####[address] [address] Chloride [Moles/Vol] 110 mmol/L Normal 98-110 [facility] ([place] Comment on above: Performed By: #### A ARBEN, CBC, ADIFF, GFR, CMP, MG ####[address] [address] CO2 [Moles/Vol] 23 mmol/L Normal 22-32 [facility] ([place] Comment on above: Performed By: #### A ARBEN, CBC, ADIFF, GFR, CMP, MG ####[place] [address] Creatinine [Mass/Vol] 2.23 mg/dL High 0.60-1.40 [facility] ([place]) Comment on above: Performed By: #### A ARBEN, CBC, ADIFF, GFR, CMP, MG ####[address] [address] Electrolyte Balance 6.0 mEq/L Normal 4.0-15.0 [facility] ([place]) Comment on above: Performed By: #### A ARBEN, CBC, ADIFF, GFR, CMP, MG ####[address] [address] Globulin 5.0 G/dL High 1.5-3.8 [facility] ([place] Comment on above: Performed By: #### A ARBEN, CBC, ADIFF, GFR, CMP, MG ####[address] [address] Glucose [Mass/Vol] 174 mg/dL High 70-110 On license of [facility] ([place] Comment on above: Performed By: #### A ARBEN, CBC, ADIFF, GFR, CMP, MG ####[place] [address] Potassium [Moles/Vol] 4.4 mmol/L Normal 3.5-5.0 [facility] ([place] Comment on above: Performed By: #### A ARBEN, CBC, ADIFF, GFR, CMP, MG ####[place] [address] Sodium [Moles/Vol] 139 mmol/L Normal 136-145 On license of [facility] ([place] Comment on above: Performed By: #### A ARBEN, CBC, ADIFF, GFR, CMP, MG ####[place] [address] Total Protein 6.2 G/dL Normal 5.7-8.2 [facility] ([place] Comment on above: Result Comment: No te - New Reference Range in effect 20 Performed By: #### A ARBEN, CBC, ADIFF, GFR, CMP, MG ####[place] [address] Urea nitrogen [Mass/Vol] 34.0 mg/dL High 8.0-22.0 [facility] ([place] Comment on above: Performed By: #### A ARBEN, CBC, ADIFF, GFR, CMP, MG ####[place] [address] LABORATORYOrdered By: Yue Somers on 06-21-2024 LDose Vancomycin:(trough) See eMAR (06/21/24 7:29 PM) Normal Chemistry S LABORATORYOrdered By: SYSTEM SYSTEM on 06-21-2024 Vancomycin trough [Mass/Vol] 15.9 ug/mL Normal 5.0 - 20.0 mcg/mL ADM SS MGon 06-21-2024 Magnesium [Mass/Vol] 2.0 mg/dL Normal 1.6-2.4 [facility] [place] Comment on above: Performed By: #### A ARBEN, CBC, ADIFF, GFR, CMP, MG ####[address] 06-21-2024 LDose Vancomycin:(trough) See eMAR Normal [facility] ([place] Comment on above: Performed By: #### V ANCT ####[place] [address] Vancomycin Tr 15.9 mcg/mL Normal 5.0-20.0 [facility] ([place] Comment on above: Performed By: #### V ANCT ####[place] [address] .Auto Diffon 06-20-2024 Basophil, Absolute 0.0 10 3/mcL Normal 0.0-0.3 [facility] ([place] Comment on above: Performed By: #### G FR, FES, FOL, ANEU, APTT, MG, CMP, VANCR, FERR, CBC, ADIFF ####[address] [address] Basophils/100 WBC (Bld) 0.6 % Normal 0.0-2.5 [facility] ([place]) Comment on above: Performed By: #### G FR, FES, FOL, ANEU, APTT, MG, CMP, VANCR, FERR, CBC, ADIFF ####[address] [address] Eosinophil, Absolute 0.3 10 3/mcL Normal 0.0-0.7 [facility] ([place]) Comment on above: Performed By: #### G FR, FES, FOL, ANEU, APTT, MG, CMP, VANCR, FERR, CBC, ADIFF ####[address] [address] Eosinophils/100 WBC (Bld) 4.3 % Normal 0.0-6.0 [facility] ([place] Comment on above: Performed By: #### G FR, FES, FOL, ANEU, APTT, MG, CMP, VANCR, FERR, CBC, ADIFF ####[address] [address] Lymphocyte, Absolute 2.1 10 3/mcL Normal 0.9-4.3 [facility] ([place] Comment on above: Performed By: #### G FR, FES, FOL, ANEU, APTT, MG, CMP, VANCR, FERR, CBC, ADIFF ####[address] [address] Lymphocytes/100 WBC (Bld) 27.1 % Normal 20.0-40.0 [facility] ([place] Comment on above: Performed By: #### G FR, FES, FOL, ANEU, APTT, MG, CMP, VANCR, FERR, CBC, ADIFF ####[address] [address] Monocyte, Absolute 0.9 10 3/mcL Normal 0.1-1.4 [facility] [place] Comment on above: Performed By: #### G FR, FES, FOL, ANEU, APTT, MG, CMP, VANCR, FERR, CBC, ADIFF ####[address] [address] Monocytes/100 WBC (Bld) 11.0 % Normal 2.0-13.0 [facility] ([place] Comment on above: Performed By: #### G FR, FES, FOL, ANEU, APTT, MG, CMP, VANCR, FERR, CBC, ADIFF ####[address] [address] Neutrophils/100 WBC (Bld) 57.0 % Normal 50.0-75.0 [facility] ([place] Comment on above: Performed By: #### G FR, FES, FOL, ANEU, APTT, MG, CMP, VANCR, FERR, CBC, ADIFF ####[address] [address] .GFRon 06-20-2024 GFR 32 ml/min/1.73sqm Normal [facility] ([place] Comment on above: Result Comment: GFR Population [...] APTT, MG, CMP, VANCR, FERR, CBC, ADIFF ####[address] [address] GFR Non- 27 ml/min/1.73sqm Normal [facility] ([place] Comment on above: Result Comment: GFR Population [...] APTT, MG, CMP, VANCR, FERR, CBC, ADIFF ####[address] [address] .NEUABSon 06-20-2024 Neutrophil, Absolute 4.5 10 3/mcL Normal 2.3-8.1 [facility] ([place]) Comment on above: Performed By: #### G FR, FES, FOL, ANEU, APTT, MG, CMP, VANCR, FERR, CBC, ADIFF ####[address] [address] APTTon 06-20-2024 aPTT Coag (Bld) [Time] 34.1 s Normal 25.0-35.0 [facility] ([place]) Comment on above: Result Comment: For Heparin anticoagulation therapy, the recommendedtherapeutic range is: 54-77 seconds (APTT Correlationwith Anti-Xa therapeutic range of 0.3-0.7 units/ml).PLEASE REFERENCE THE PHARMACY PROTOCOL FOR DOSING. Performed By: #### G FR, FES, FOL, ANEU, APTT, MG, CMP, VANCR, FERR, CBC, ADIFF ####[address] [address] CBCon 06-20-2024 Erythrocyte distribution width (RBC) [Ratio] 18.4 % High 11.5-15.5 [facility] ([place] Comment on above: Performed By: #### G FR, FES, FOL, ANEU, APTT, MG, CMP, VANCR, FERR, CBC, ADIFF ####[place] [address] Hematocrit (Bld) [Volume fraction] 22.2 % Low 40.0-52.0 [facility] ([place]) Comment on above: Performed By: #### G FR, FES, FOL, ANEU, APTT, MG, CMP, VANCR, FERR, CBC, ADIFF ####[place] [address] Hgb 7.5 G/dL Low 13.0-17.5 [facility] ([place]) Comment on above: Performed By: #### G FR, FES, FOL, ANEU, APTT, MG, CMP, VANCR, FERR, CBC, ADIFF ####[place] [address] MCH (RBC) [Entitic mass] 27.4 pg Normal 27.0-33.0 [facility] ([place] Comment on above: Performed By: #### G FR, FES, FOL, ANEU, APTT, MG, CMP, VANCR, FERR, CBC, ADIFF ####[place] [address] MCHC 33.8 G/dL Normal 32.0-36.0 [facility] ([place]) Comment on above: Performed By: #### G FR, FES, FOL, ANEU, APTT, MG, CMP, VANCR, FERR, CBC, ADIFF ####[place] [address] MCV (RBC) [Entitic vol] 81.1 fL Normal 81.0-100.0 [facility] ([place]) Comment on above: Performed By: #### G FR, FES, FOL, ANEU, APTT, MG, CMP, VANCR, FERR, CBC, ADIFF ####[address] [address] Platelet 428 10 3/mcL Normal 150-450 [facility] ([place] Comment on above: Performed By: #### G FR, FES, FOL, ANEU, APTT, MG, CMP, VANCR, FERR, CBC, ADIFF ####[place] [address] Platelet mean volume (Bld) [Entitic vol] 7.1 fL Normal 6.4-10.5 [facility] ([place] Comment on above: Performed By: #### G FR, FES, FOL, ANEU, APTT, MG, CMP, VANCR, FERR, CBC, ADIFF ####[address] [address] RBC 2.73 10 6/mcL Low 4.50-6.00 [facility] ([place] Comment on above: Performed By: #### G FR, FES, FOL, ANEU, APTT, MG, CMP, VANCR, FERR, CBC, ADIFF ####[place] [address] WBC 7.9 10 3/mcL Normal 4.5-10.8 [facility] ([place] Comment on above: Performed By: #### G FR, FES, FOL, ANEU, APTT, MG, CMP, VANCR, FERR, CBC, ADIFF ####[address] [address] CMPon 06-20-2024 Albumin Level 1.5 G/dL Low 3.2-4.8 [facility] ([place] Comment on above: Performed By: #### G FR, FES, FOL, ANEU, APTT, MG, CMP, VANCR, FERR, CBC, ADIFF ####[address] [address] Albumin/Globulin [Mass ratio] 0.3 {ratio} Low 0.9-1.6 [facility] ([place] Comment on above: Performed By: #### G FR, FES, FOL, ANEU, APTT, MG, CMP, VANCR, FERR, CBC, ADIFF ####[address] [address] ALP [Catalytic activity/Vol] 1127 U/L High 38-126 [facility] ([place] Comment on above: Performed By: #### G FR, FES, FOL, ANEU, APTT, MG, CMP, VANCR, FERR, CBC, ADIFF ####[address] [address] ALT [Catalytic activity/Vol] 28 U/L Normal 12-55 [facility] ([place] Comment on above: Performed By: #### G FR, FES, FOL, ANEU, APTT, MG, CMP, VANCR, FERR, CBC, ADIFF ####[address] [address] AST [Catalytic activity/Vol] 25 U/L Normal 8-34 [facility] ([place] Comment on above: Performed By: #### G FR, FES, FOL, ANEU, APTT, MG, CMP, VANCR, FERR, CBC, ADIFF ####[address] [address] Bili Total 0.20 mg/dL Normal 0.20-1.20 [facility] ([place] Comment on above: Result Comment: Use of this assay is not recommended for patients undergoing treatment with eltrombopag due to the potential for falsely elevated results. Performed By: #### G FR, FES, FOL, ANEU, APTT, MG, CMP, VANCR, FERR, CBC, ADIFF ####[place] [address] BUN/Creatinine Ratio 15.1 ratio Normal 10.0-22.0 [facility] [place] Comment on above: Performed By: #### G FR, FES, FOL, ANEU, APTT, MG, CMP, VANCR, FERR, CBC, ADIFF ####[address] [address] Calcium [Mass/Vol] 7.5 mg/dL Low 8.7-10.4 On license of [facility] ([place] Comment on above: Performed By: #### G FR, FES, FOL, ANEU, APTT, MG, CMP, VANCR, FERR, CBC, ADIFF ####[address] [address] Chloride [Moles/Vol] 107 mmol/L Normal 98-110 [facility] [place] Comment on above: Performed By: #### G FR, FES, FOL, ANEU, APTT, MG, CMP, VANCR, FERR, CBC, ADIFF ####[address] [address] CO2 [Moles/Vol] 24 mmol/L Normal 22-32 [facility] [place] Comment on above: Performed By: #### G FR, FES, FOL, ANEU, APTT, MG, CMP, VANCR, FERR, CBC, ADIFF ####[address] [address] Creatinine [Mass/Vol] 2.59 mg/dL High 0.60-1.40 [facility] ([place] Comment on above: Performed By: #### G FR, FES, FOL, ANEU, APTT, MG, CMP, VANCR, FERR, CBC, ADIFF ####[address] [address] Electrolyte Balance 7.0 mEq/L Normal 4.0-15.0 [facility] ([place] Comment on above: Performed By: #### G FR, FES, FOL, ANEU, APTT, MG, CMP, VANCR, FERR, CBC, ADIFF ####[address] [address] Globulin 5.0 G/dL High 1.5-3.8 [facility] ([place] Comment on above: Performed By: #### G FR, FES, FOL, ANEU, APTT, MG, CMP, VANCR, FERR, CBC, ADIFF ####[address] [address] Glucose [Mass/Vol] 138 mg/dL High 70-110 On license of [facility] ([place] Comment on above: Performed By: #### G FR, FES, FOL, ANEU, APTT, MG, CMP, VANCR, FERR, CBC, ADIFF ####[place] [id number] [address] [place] [address] Potassium [Moles/Vol] 4.1 mmol/L Normal 3.5-5.0 [facility] ([place] Comment on above: Performed By: #### G FR, FES, FOL, ANEU, APTT, MG, CMP, VANCR, FERR, CBC, ADIFF ####[address] [address] Sodium [Moles/Vol] 138 mmol/L Normal 136-145 On license of [facility] ([place] Comment on above: Performed By: #### G FR, FES, FOL, ANEU, APTT, MG, CMP, VANCR, FERR, CBC, ADIFF ####[address] [address] Total Protein 6.5 G/dL Normal 5.7-8.2 [facility] ([place] Comment on above: Result Comment: No te - New Reference Range in effect 20 Performed By: #### G FR, FES, FOL, ANEU, APTT, MG, CMP, VANCR, FERR, CBC, ADIFF ####[address] [address] Urea nitrogen [Mass/Vol] 39.0 mg/dL High 8.0-22.0 [facility] ([place] Comment on above: Performed By: #### G FR, FES, FOL, ANEU, APTT, MG, CMP, VANCR, FERR, CBC, ADIFF ####[address] [address] Partha 06-20-2024 Ferritin [Mass/Vol] 397.3 ng/mL High 26.0-388.0 [facility] ([place] Comment on above: Performed By: #### G FR, FES, FOL, ANEU, APTT, MG, CMP, VANCR, FERR, CBC, ADIFF ####[address] [address] FESon 06-20-2024 Iron [Mass/Vol] 23 ug/dL Low 65-175 [facility] ([place] Comment on above: Performed By: #### G FR, FES, FOL, ANEU, APTT, MG, CMP, VANCR, FERR, CBC, ADIFF ####[address] [address] Iron Sat 12 % Normal [facility] ([place] Comment on above: Performed By: #### G FR, FES, FOL, ANEU, APTT, MG, CMP, VANCR, FERR, CBC, ADIFF ####[address] [address] TIBC 191 mcg/dL Low 250-500 [facility] ([place] Comment on above: Performed By: #### G FR, FES, FOL, ANEU, APTT, MG, CMP, VANCR, FERR, CBC, ADIFF ####[address] [address] FOLon 06-20-2024 Folate 7.93 ng/mL Normal 5.38-24.00 [facility] ([place] Comment on above: Performed By: #### G FR, FES, FOL, ANEU, APTT, MG, CMP, VANCR, FERR, CBC, ADIFF ####[place] [address] LABORATORYOrdered By: Tiffany Ervin on 06-20-2024 LDose [...] Negative 17 (06/20/24 3:28 PM) Normal Negative AH Manual Urine SS Comment on above: Interpretive Data: T his test utilizes the guaiac fecal blood method, which detects peroxidase activity (heme) indicating bleeding from stomach, small intestine, or large intestine. If bleeding from either upper or lower gastrointestinal tract is a clinical consideration, the [facility] recommends the use of both the guaiac fecal blood test and the Immunochemical fecal blood test. LABORATORYOrdered By: Aleksey Barajas on 06-20-2024 LDose Vancomycin: (random) See eMAR (06/20/24 2:47 AM) Normal AH Chemistry S MGon 06-20-2024 Magnesium [Mass/Vol] 1.6 mg/dL Normal 1.6-2.4 [facility] ([place] Comment [place] above: Performed By: #### G FR, FES, FOL, ANEU, APTT, MG, CMP, VANCR, FERR, CBC, ADIFF ####[place] [address] MRI PELVIS W/O CONTRASTon MRI PELVIS W/O CONTRAST Normal A [facility] ([place] OCC (LAB)on 06-20-2024 Occult Blood Fecal Negative Normal Negative On license of [facility] ([place]) Comment on above: Result Comment: This test utilizes the guaiac fecal blood method, which detects peroxidase activity (heme) indicating bleedingfrom stomach, small intestine, or large intestine. Ifbleeding from either upper or lower gastrointestinal tract is a clinical consideration, the [facility] recommends the use of both the guaiac fecal blood test and the Immunochemical fecal blood test. Performed By: #### O CC ####[place] [address] VANCRon 06-20-2024 LDose Vancomycin: (random) See eMAR Normal [facility] ([place] Comment on above: Performed By: #### V ANCR ####[place] [address] Vancomycin Lvl (random) 23.2 mcg/mL Normal [facility] ([place] Comment on above: Performed By: #### V ANCR ####[place] [address] LDose Vancomycin: (random) See eMAR Normal [facility] ([place] Comment on above: Performed By: #### G FR, FES, FOL, ANEU, APTT, MG, CMP, VANCR, FERR, CBC, ADIFF ####[place] [address] Vancomycin Lvl (random) 25.0 mcg/mL Normal [facility] ([place] Comment on above: Performed By: #### G FR, FES, FOL, ANEU, APTT, MG, CMP, VANCR, FERR, CBC, ADIFF ####[place] [address] .Auto Diffon 06-19-2024 Basophil, Absolute 0.0 10 3/mcL Normal 0.0-0.3 [facility] ([place] Comment on above: Performed By: #### C MP, ADIFF, ANEU, GFR, CBC ####[place] [address] Basophils/100 WBC (Bld) 0.6 % Normal 0.0-2.5 [facility] ([place] Comment on above: Performed By: #### C MP, ADIFF, ANEU, GFR, CBC ####[place] [address] Eosinophil, Absolute 0.3 10 3/mcL Normal 0.0-0.7 [facility] ([place] Comment on above: Performed By: #### C MP, ADIFF, ANEU, GFR, CBC ####[place] [address] Eosinophils/100 WBC (Bld) 4.0 % Normal 0.0-6.0 [facility] ([place] Comment on above: Performed By: #### C MP, ADIFF, ANEU, GFR, CBC ####[place] [address] Lymphocyte, Absolute 2.2 10 3/mcL Normal 0.9-4.3 [facility] ([place] Comment on above: Performed By: #### C MP, ADIFF, ANEU, GFR, CBC ####[address] [address] Lymphocytes/100 WBC (Bld) 24.9 % Normal 20.0-40.0 [facility] ([place] Comment on above: Performed By: #### C MP, ADIFF, ANEU, GFR, CBC ####[address] [address] Monocyte, Absolute 1.2 10 3/mcL Normal 0.1-1.4 [facility] ([place] Comment on above: Performed By: #### C MP, ADIFF, ANEU, GFR, CBC ####[address] [address] Monocytes/100 WBC (Bld) 14.0 % High 2.0-13.0 [facility] [place] Comment on above: Performed By: #### C MP, ADIFF, ANEU, GFR, CBC ####[address] [address] Neutrophils/100 WBC (Bld) 56.5 % Normal 50.0-75.0 [facility] ([place] Comment on above: Performed By: #### C MP, ADIFF, ANEU, GFR, CBC ####[address] [address] .GFRon 06-19-2024 GFR Non- 25 ml/min/1.73sqm Normal [facility] ([place] Comment on above: Result Comment: GFR Population [...] #### C MP, ADIFF, ANEU, GFR, CBC ####[place] [id number] [place], [place] [address] GFR 30 ml/min/1.73sqm Normal [facility] ([place] Comment on above: Result Comment: GFR Population [...] mL/min/1.73 square meters Performed By: #### C MPJOSE, ANEU, GFR, CBC ####[place] [address] .NEUABSon 06-19-2024 Neutrophil, Absolute 4.9 10 3/mcL Normal 2.3-8.1 [facility] ([place] Comment on above: Performed By: #### C MPJOSE, ANEU, GFR, CBC ####[place] [address] APTTon 06-19-2024 aPTT Coag (Bld) [Time] 34.2 s Normal 25.0-35.0 [facility] ([place] Comment on above: Result Comment: For Heparin anticoagulation therapy, the recommendedtherapeutic range is: 54-77 seconds (APTT Correlationwith Anti-Xa therapeutic range of 0.3-0.7 units/ml).PLEASE REFERENCE THE PHARMACY PROTOCOL FOR DOSING. Performed By: #### A PTT ####[place] [address] aPTT Coag (Bld) [Time] 32.3 s Normal 25.0-35.0 [facility] ([place] Comment on above: Result Comment: For Heparin anticoagulation therapy, the recommendedtherapeutic range is: 54-77 seconds (APTT Correlationwith Anti-Xa therapeutic range of 0.3-0.7 units/ml).PLEASE REFERENCE THE PHARMACY PROTOCOL FOR DOSING. Performed By: #### A PTT ####[place] [address] [id number] By: SYSTEM SYSTEM on 06-19-2024 Cobalamin (Vitamin B12) [Mass/Vol] 857 pg/mL Normal 211-911 AH ADM SS Comment on above: Performed By: #### B 12, HH ####[place] [address] CBCon 06-19-2024 Erythrocyte distribution width (RBC) [Ratio] 18.6 % High 11.5-15.5 [facility] ([place] Comment on above: Performed By: #### C MP, ADIFF, ANEU, GFR, CBC ####[place] [address] Hematocrit (Bld) [Volume fraction] 21.2 % Low 40.0-52.0 [facility] ([place] Comment on above: Performed By: #### C MP, ADIFF, ANEU, GFR, CBC ####[place] [address] Hgb 7.1 G/dL Low 13.0-17.5 [facility] ([place]) Comment on above: Performed By: #### C MP, ADIFF, ANEU, GFR, CBC ####[place] [address] MCH (RBC) [Entitic mass] 26.6 pg Low 27.0-33.0 [facility] ([place] Comment on above: Performed By: #### C MP, ADIFF, ANEU, GFR, CBC ####[place] [address] MCHC 33.5 G/dL Normal 32.0-36.0 [facility] ([place]) Comment on above: Performed By: #### C MP, ADIFF, ANEU, GFR, CBC ####[place] [address] MCV (RBC) [Entitic vol] 79.4 fL Low 81.0-100.0 [facility] ([place]) Comment on above: Performed By: #### C MP, ADIFF, ANEU, GFR, CBC ####[place] [address] Platelet 418 10 3/mcL Normal 150-450 [facility] ([place] Comment on above: Performed By: #### C MP, ADIFF, ANEU, GFR, CBC ####[place] [address] Platelet mean volume (Bld) [Entitic vol] 7.2 fL Normal 6.4-10.5 [facility] ([place] Comment on above: Performed By: #### C MP, ADIFF, ANEU, GFR, CBC ####[place] [address] RBC 2.67 10 6/mcL Low 4.50-6.00 [facility] ([place] Comment on above: Performed By: #### C MP, ADIFF, ANEU, GFR, CBC ####[place] [address] WBC 8.7 10 3/mcL Normal 4.5-10.8 [facility] ([place] Comment on above: Performed By: #### C MP, ADIFF, ANEU, GFR, CBC ####[place] [address] CMPon 06-19-2024 Albumin Level 1.2 G/dL Low 3.2-4.8 [facility] ([place] Comment on above: Performed By: #### C MP, ADIFF, ANEU, GFR, CBC ####[place] [address] Albumin/Globulin [Mass ratio] 0.3 {ratio} Low 0.9-1.6 [facility] ([place] Comment on above: Performed By: #### C MP, ADIFF, ANEU, GFR, CBC ####[place] [address] ALP [Catalytic activity/Vol] 1435 U/L High 38-126 [facility] ([place] Comment on above: Performed By: #### C MP, ADIFF, ANEU, GFR, CBC ####[address] [address] ALT [Catalytic activity/Vol] 45 U/L Normal 12-55 [facility] ([place] Comment on above: Performed By: #### C MP, ADIFF, ANEU, GFR, CBC ####[address] [address] AST [Catalytic activity/Vol] 58 U/L High 8-34 [facility] ([place] Comment on above: Performed By: #### C MP, ADIFF, ANEU, GFR, CBC ####[place] [address] Bili Total 0.30 mg/dL Normal 0.20-1.20 [facility] ([place] Comment on above: Result Comment: Use of this assay is not recommended for patients undergoing treatment with eltrombopag due to the potential for falsely elevated results. Performed By: #### C MP, ADIFF, ANEU, GFR, CBC ####[place] [address] BUN/Creatinine Ratio 19.0 ratio Normal 10.0-22.0 [facility] ([place] Comment on above: Performed By: #### C MP, ADIFF, ANEU, GFR, CBC ####[place] [address] Calcium [Mass/Vol] 7.2 mg/dL Low 8.7-10.4 On license of [facility] ([place] Comment on above: Performed By: #### C MP, ADIFF, ANEU, GFR, CBC ####[place] [id number] Chloride [Moles/Vol] 108 mmol/L Normal 98-110 [facility] ([place]) Comment on above: Performed By: #### C MP, ADIFF, ANEU, GFR, CBC ####[place] [id number] CO2 [Moles/Vol] 24 mmol/L Normal 22-32 [facility] ([place]) Comment on above: Performed By: #### C MP, ADIFF, ANEU, GFR, CBC ####[place] [address] Creatinine [Mass/Vol] 2.74 mg/dL High 0.60-1.40 [facility] ([place]) Comment on above: Performed By: #### C MP, ADIFF, ANEU, GFR, CBC ####[address] [address] Electrolyte Balance 2.0 mEq/L Low 4.0-15.0 [facility] [facility] [place] Comment on above: Performed By: #### C MP, ADIFF, ANEU, GFR, CBC ####[address] [address] Globulin 4.7 G/dL High 1.5-3.8 [facility] ([place]) Comment on above: Performed By: #### C MP, ADIFF, ANEU, GFR, CBC ####[address] [address] Glucose [Mass/Vol] 73 mg/dL Normal 70-110 On license of [facility] ([place]) Comment on above: Performed By: #### C MP, ADIFF, ANEU, GFR, CBC ####[place] [address] Potassium [Moles/Vol] 4.2 mmol/L Normal 3.5-5.0 [facility] ([place]) Comment on above: Performed By: #### C MP, ADIFF, ANEU, GFR, CBC ####[address] [address] Sodium [Moles/Vol] 134 mmol/L Low 136-145 On license of [facility] ([place] Comment on above: Performed By: #### C MP, ADIFF, ANEU, GFR, CBC ####[place] [id number] Total Protein 5.9 G/dL Normal 5.7-8.2 [facility] ([place] Comment on above: Result Comment: No te - New Reference Range in effect 20 Performed By: #### C MP, ADIFF, ANEU, GFR, CBC ####[address] [address] Urea nitrogen [Mass/Vol] 52.0 mg/dL High 8.0-22.0 [facility] ([place] Comment on above: Performed By: #### C MP, ADIFF, ANEU, GFR, CBC ####[place] [address] HHon 06-19-2024 Hematocrit (Bld) [Volume fraction] 23.7 % Low 40.0-52.0 [facility] ([place] Comment on above: Performed By: #### H H ####[place] [address] Hgb 7.9 G/dL Low 13.0-17.5 [facility] ([place] Comment on above: Performed By: #### H H ####[place] [address] Hematocrit (Bld) [Volume fraction] 22.8 % Low 40.0-52.0 [facility] ([place] Comment on above: Performed By: #### B 12, ####[place] [address] Hgb 7.6 G/dL Low 13.0-17.5 [facility] ([place] Comment on above: Performed By: #### B 12, ####[place] [address] LABORATORYOrdered By: Heber cMmullen on 06-19-2024 LDose Vancomycin: (random) See eMAR (06/19/24 7:25 PM) Normal Chemistry S LABORATORYOrdered By: SYSTEM SYSTEM on 06-19-2024 Vancomycin [Mass/Vol] 29.5 mcg/mL Invalid Interpretation Code AH ADM SS VANCRon 06-19-2024 LDose Vancomycin: (random) See eMAR Normal [facility] ([place] Comment on above: Performed By: #### V ANCR ####[place] [address] Vancomycin Lvl (random) 29.5 mcg/mL Normal [facility] ([place] Comment on above: Performed By: #### V ANCR ####[place] [address] .Auto Diffon 06-18-2024 Basophil, Absolute 0.0 10 3/mcL Normal 0.0-0.3 [facility] ([place] Comment on above: Performed By: #### B MP, GFR, ADIFF, CBC, ANEU, CK ####[address] [address] Basophils/100 WBC (Bld) 0.4 % Normal 0.0-2.5 [facility] ([place]) Comment on above: Performed By: #### B MP, GFR, ADIFF, CBC, ANEU, CK ####[address] [address] Eosinophil, Absolute 0.2 10 3/mcL Normal 0.0-0.7 [facility] ([place]) Comment on above: Performed By: #### B MP, GFR, ADIFF, CBC, ANEU, CK ####[address] [address] Eosinophils/100 WBC (Bld) 2.3 % Normal 0.0-6.0 [facility] ([place] Comment on above: Performed By: #### B MP, GFR, ADIFF, CBC, ANEU, CK ####[address] [address] Lymphocyte, Absolute 1.8 10 3/mcL Normal 0.9-4.3 [facility] ([place] Comment on above: Performed By: #### B MP, GFR, ADIFF, CBC, ANEU, CK ####[address] [address] Lymphocytes/100 WBC (Bld) 18.4 % Low 20.0-40.0 [facility] ([place] Comment on above: Performed By: #### B MP, GFR, ADIFF, CBC, ANEU, CK ####[address] [address] Monocyte, Absolute 1.2 10 3/mcL Normal 0.1-1.4 [facility] ([place] Comment on above: Performed By: #### B MP, GFR, ADIFF, CBC, ANEU, CK ####[address] [address] Monocytes/100 WBC (Bld) 11.5 % Normal 2.0-13.0 [facility] ([place] Comment on above: Performed By: #### B MP, GFR, ADIFF, CBC, ANEU, CK ####[address] [address] Neutrophils/100 WBC (Bld) 67.4 % Normal 50.0-75.0 [facility] ([place] Comment on above: Performed By: #### B MP, GFR, ADIFF, CBC, ANEU, CK ####[address] [address] .GFRon 06-18-2024 GFR 30 ml/min/1.73sqm Normal [facility] ([place] Comment on above: Result Comment: GFR Population [...] B MP, GFR, ADIFF, CBC, ANEU, CK ####[address] [address] GFR Non- 25 ml/min/1.73sqm Normal [facility] ([place] Comment on above: Result Comment: GFR Population [...] B MP, GFR, ADIFF, CBC, ANEU, CK ####[place] [address] .NEUABSon 06-18-2024 Neutrophil, Absolute 6.7 10 3/mcL Normal 2.3-8.1 [facility] ([place] Comment on above: Performed By: #### B MP, GFR, ADIFF, CBC, ANEU, CK ####[address] [address] BMPon 06-18-2024 BUN/Creatinine Ratio 19.6 ratio Normal 10.0-22.0 [facility] ([place] Comment on above: Performed By: #### B MP, GFR, ADIFF, CBC, ANEU, CK ####[place] [address] Calcium [Mass/Vol] 7.9 mg/dL Low 8.7-10.4 On license of [facility] ([place] Comment on above: Performed By: #### B MP, GFR, ADIFF, CBC, ANEU, CK ####[place] [address] Chloride [Moles/Vol] 105 mmol/L Normal 98-110 [facility] [place] Comment on above: Performed By: #### B MP, GFR, ADIFF, CBC, ANEU, CK ####[place] [address] CO2 [Moles/Vol] 23 mmol/L Normal 22-32 [facility] ([place] Comment on above: Performed By: #### B MP, GFR, ADIFF, CBC, ANEU, CK ####[place] [address] Creatinine [Mass/Vol] 2.75 mg/dL High 0.60-1.40 [facility] ([place] Comment on above: Performed By: #### B MP, GFR, ADIFF, CBC, ANEU, CK ####[place] [address] Electrolyte Balance 5.0 mEq/L Normal 4.0-15.0 [facility] ([place] Comment on above: Performed By: #### B MP, GFR, ADIFF, CBC, ANEU, CK ####[address] [address] Glucose [Mass/Vol] 103 mg/dL Normal 70-110 On license of [facility] ([place] Comment on above: Performed By: #### B MP, GFR, ADIFF, CBC, ANEU, CK ####[address] [address] Potassium [Moles/Vol] 4.3 mmol/L Normal 3.5-5.0 [facility] ([place] Comment on above: Performed By: #### B MP, GFR, ADIFF, CBC, ANEU, CK ####[place] [address] Sodium [Moles/Vol] 133 mmol/L Low 136-145 On license of [facility] ([place] Comment on above: Performed By: #### B MP, GFR, ADIFF, CBC, ANEU, CK ####[address] [address] Urea nitrogen [Mass/Vol] 54.0 mg/dL High 8.0-22.0 [facility] ([place] Comment on above: Performed By: #### B MP, GFR, ADIFF, CBC, ANEU, CK ####[address] [address] CBCon 06-18-2024 Erythrocyte distribution width (RBC) [Ratio] 18.4 % High 11.5-15.5 [facility] ([place] Comment on above: Performed By: #### B MP, GFR, ADIFF, CBC, ANEU, CK ####[place] [address] Hematocrit (Bld) [Volume fraction] 22.7 % Low 40.0-52.0 [facility] ([place] Comment on above: Performed By: #### B MP, GFR, ADIFF, CBC, ANEU, CK ####[place] [address] Hgb 7.7 G/dL Low 13.0-17.5 [facility] ([place] Comment on above: Performed By: #### B MP, GFR, ADIFF, CBC, ANEU, CK ####[place] [address] MCH (RBC) [Entitic mass] 27.4 pg Normal 27.0-33.0 [facility] ([place] Comment on above: Performed By: #### B MP, GFR, ADIFF, CBC, ANEU, CK ####[place] [address] MCHC 33.7 G/dL Normal 32.0-36.0 [facility] ([place] Comment on above: Performed By: #### B MP, GFR, ADIFF, CBC, ANEU, CK ####[place] [address] MCV (RBC) [Entitic vol] 81.4 fL Normal 81.0-100.0 [facility] ([place] Comment on above: Performed By: #### B MP, GFR, ADIFF, CBC, ANEU, CK ####[place] [address] Platelet 433 10 3/mcL Normal 150-450 [facility] ([place] Comment on above: Performed By: #### B MP, GFR, ADIFF, CBC, ANEU, CK ####[place] [address] Platelet mean volume (Bld) [Entitic vol] 7.2 fL Normal 6.4-10.5 [facility] ([place] Comment on above: Performed By: #### B MP, GFR, ADIFF, CBC, ANEU, CK ####[place] [address] RBC 2.79 10 6/mcL Low 4.50-6.00 [facility] ([place] Comment on above: Performed By: #### B MP, GFR, ADIFF, CBC, ANEU, CK ####[place] [address] WBC 10.0 10 3/mcL Normal 4.5-10.8 [facility] ([place] Comment on above: Performed By: #### B MP, GFR, ADIFF, CBC, ANEU, CK ####[place] [address] CKon 06-18-2024 CK [Catalytic activity/Vol] 16 U/L Normal 7-185 [facility] ([place] Comment on above: Performed By: #### B MP, GFR, ADIFF, CBC, ANEU, CK ####[place] [address] CRPon 06-18-2024 C-Reactive Protein 6.4 mg/dL High 0.0-1.0 On license of [facility] ([place] Comment on above: Result Comment: No te - New Reference Range in effect 20 Performed By: #### C RP, ESR ####[place] [address] ESRon 06-18-2024 Erythrocyte Sed Rate 54 mm/hr High 0-15 [facility] ([place] Comment on above: Performed By: #### C RP, ESR ####[place] [address] LABORATORYOrdered By: SYSTEM SYSTEM on 06-18-2024 CK [...] Blood Culture: No Growth at 5 days. [facility] Work Phone: .Auto Diffon 06-06-2024 Basophil, Absolute 0.0 10 3/mcL Normal 0.0-0.2 [facility] ([place] Comment on above: Performed By: #### M ORPH, ADIFF, GFR, MDW, BMP, ANEU, CBC ####[place] [address] [place], [place] [address] Basophils/100 WBC (Bld) 0.3 % Normal 0.0-2.5 [facility] ([place] Comment on above: Performed By: #### M ORPH, ADIFF, GFR, MDW, BMP, ANEU, CBC ####[place] [address] [place], [place] [address] Eosinophil, Absolute 0.3 10 3/mcL Normal 0.0-0.4 [facility] ([place]) Comment on above: Performed By: #### M ORPH, ADIFF, GFR, MDW, BMP, ANEU, CBC ####[place] [address] [place], [place] [address] Eosinophils/100 WBC (Bld) 2.1 % Normal 0.0-7.0 [facility] ([place]) Comment on above: Performed By: #### M ORPH, ADIFF, GFR, MDW, BMP, ANEU, CBC ####[place] [address] [place], [place] [address] Lymphocyte, Absolute 2.9 10 3/mcL Normal 0.8-3.9 [facility] ([place]) Comment on above: Performed By: #### M ORPH, ADIFF, GFR, MDW, BMP, ANEU, CBC ####[place] [address] [place], [place] [address] Lymphocytes/100 WBC (Bld) 17.7 % Normal 10.0-50.0 [facility] ([place] Comment on above: Performed By: #### M ORPH, ADIFF, GFR, MDW, BMP, ANEU, CBC ####[place] [address] [place], [place] [address] Monocyte, Absolute 1.6 10 3/mcL High 0.2-1.0 [facility] ([place] Comment on above: Performed By: #### M ORPH, ADIFF, GFR, MDW, BMP, ANEU, CBC ####[place] [address] [place], [place] [address] Monocytes/100 WBC (Bld) 9.5 % Normal 1.7-13.0 [facility] ([place] Comment on above: Performed By: #### M ORPH, ADIFF, GFR, MDW, BMP, ANEU, CBC ####[place] [address] [place], [place] [address] Neutrophils/100 WBC (Bld) 70.1 % Normal 37.0-80.0 [facility] ([place] Comment on above: Performed By: #### M ORPH, ADIFF, GFR, MDW, BMP, ANEU, CBC ####[place] [address] [place], [place] [address] .GFRon 06-06-2024 GFR 23 ml/min/1.73sqm Normal [facility] ([place] Comment on above: Result Comment: GFR Population [...] ADIFF, GFR, MDW, BMP, ANEU, CBC ####[place] [address] [place], [place] [address] GFR Non- 19 ml/min/1.73sqm Normal [facility] ([place] Comment on above: Result Comment: GFR Population [...] GFR, MDW, BMP, ANEU, CBC ####[place] [address] [place], [place] [address] .MDWon 06-06-2024 Monocyte Distribution Width Not tested Normal 0.00-20.00 [facility] ([place] Comment on above: Result Comment: MDW testing unable to be performed on [id number] instrumentation. Performed By: #### M ORPH, ADIFF, GFR, MDW, BMP, ANEU, CBC ####[place] [address] [place], [place] [address] .Morphon 06-06-2024 Platelet Estimate Slt Increased Normal [facility] ([place] Comment on above: Performed By: #### M ORPH, ADIFF, GFR, MDW, BMP, ANEU, CBC ####[place] [address] [place], [place] [address] .NEUABSon 06-06-2024 Neutrophil, Absolute 11.8 10 3/mcL High 2.9-6.2 [facility] ([place] Comment on above: Performed By: #### M ORPH, ADIFF, GFR, MDW, BMP, ANEU, CBC ####[place] [address] [place], [place] [address] BMPon 06-06-2024 BUN/Creatinine Ratio 25 ratio Normal 7-27 [facility] ([place] Comment on above: Performed By: #### M ORPH, ADIFF, GFR, MDW, BMP, ANEU, CBC ####[place] [address] [place], [place] [address] Calcium [Mass/Vol] 8.4 mg/dL Normal 8.4-10.2 On license of [facility] ([place] Comment on above: Performed By: #### M ORPH, ADIFF, GFR, MDW, BMP, ANEU, CBC ####[place] [address] [place], [place] [address] Chloride [Moles/Vol] 96 mmol/L Low 98-107 [facility] ([place] Comment on above: Performed By: #### M ORPH, ADIFF, GFR, MDW, BMP, ANEU, CBC ####[place] [address] [place], [place] [address] CO2 [Moles/Vol] 27 mmol/L Normal 22-29 [facility] ([place] Comment on above: Performed By: #### M ORPH, ADIFF, GFR, MDW, BMP, ANEU, CBC ####[place] [address] [place], [place] [address] Creatinine [Mass/Vol] 3.49 mg/dL High 0.70-1.30 [facility] ([place] Comment on above: Performed By: #### M ORPH, ADIFF, GFR, MDW, BMP, ANEU, CBC ####[place] [address] [place], [place] [address] Electrolyte Balance 6.0 mEq/L Normal 4.0-15.0 [facility] ([place] Comment on above: Performed By: #### M ORPH, ADIFF, GFR, MDW, BMP, ANEU, CBC ####[place] [address] [place], [place] [address] Glucose [Mass/Vol] 190 mg/dL High 70-105 On license of [facility] ([place] Comment on above: Performed By: #### M ORPH, ADIFF, GFR, MDW, BMP, ANEU, CBC ####[place] [address] [place], [place] [address] Potassium [Moles/Vol] 4.6 mmol/L Normal 3.5-5.1 [facility] ([place] Comment on above: Performed By: #### M ORPH, ADIFF, GFR, MDW, BMP, ANEU, CBC ####[place] [address] [place], [place] [address] Sodium [Moles/Vol] 129 mmol/L Low 136-145 On license of [facility] ([place] Comment on above: Performed By: #### M ORPH, ADIFF, GFR, MDW, BMP, ANEU, CBC ####[facility] [place] [address] Urea nitrogen [Mass/Vol] 86 mg/dL High 7-18 [facility] ([place] Comment on above: Performed By: #### M ORPH, ADIFF, GFR, MDW, BMP, ANEU, CBC ####[place] [address] [place], [place] [address] CBCon 06-06-2024 Erythrocyte distribution width (RBC) [Ratio] 18.1 % High 11.5-14.5 [facility] ([place] Comment on above: Performed By: #### M ORPH, ADIFF, GFR, MDW, BMP, ANEU, CBC ####[place] [address] [place], [place] [address] Hematocrit (Bld) [Volume fraction] 25.4 % Low 42.0-52.0 [facility] ([place] Comment on above: Performed By: #### M ORPH, ADIFF, GFR, MDW, BMP, ANEU, CBC ####[place] [address] [place], [place] [address] Hgb 8.2 G/dL Low 14.0-18.0 [facility] ([place] Comment on above: Performed By: #### M ORPH, ADIFF, GFR, MDW, BMP, ANEU, CBC ####[address] [place], [place] [address] MCH (RBC) [Entitic mass] 25.8 pg Low 27.0-31.2 [facility] ([place] Comment on above: Performed By: #### M ORPH, ADIFF, GFR, MDW, BMP, ANEU, CBC ####[place] [address] [place], [place] [address] MCHC 32.3 G/dL Normal 31.8-35.4 [facility] ([place] Comment on above: Performed By: #### M ORPH, ADIFF, GFR, MDW, BMP, ANEU, CBC ####[place] [address] [place], [place] [address] MCV (RBC) [Entitic vol] 79.8 fL Low 80.0-94.0 [facility] ([place] Comment on above: Performed By: #### M ORPH, ADIFF, GFR, MDW, BMP, ANEU, CBC ####[place] [address] [place], [place] [address] Platelet 479 10 3/mcL High 130-400 [facility] ([place] Comment on above: Performed By: #### M ORPH, ADIFF, GFR, MDW, BMP, ANEU, CBC ####[place] [address] [place], [place] [address] Platelet mean volume (Bld) [Entitic vol] 8.1 fL Normal 7.4-10.4 [facility] ([place] Comment on above: Performed By: #### M ORPH, ADIFF, GFR, MDW, BMP, ANEU, CBC ####[address] [place], [place] [address] RBC 3.18 10 6/mcL Low 4.04-6.13 [facility] ([place] Comment on above: Performed By: #### M ORPH, ADIFF, GFR, MDW, BMP, ANEU, CBC ####[place] [address] [place], [place] [address] WBC 16.8 10 3/mcL High 4.6-10.8 [facility] ([place] Comment on above: Performed By: #### M ORPH, ADIFF, GFR, MDW, BMP, ANEU, CBC ####[place] [address] [place], [place] [address] LABORATORYOrdered By: SYSTEM SYSTEM on 06-06-2024 Lactate [...] MDW testing unable to be performed on [id number] instrumentation. Platelet Estimate Slt Increased (06/06/24 2:02 AM) Normal AO Hematology S LACon 06-06-2024 Lactic Acid Lvl 1.4 mmol/L Normal 0.4-2.0 [facility] ([place] Comment on above: Performed By: #### L AC ####[address] [address] XR PELVIS 1 OR 2 VIEWSon XR PELVIS 1 OR 2 VIEWS Normal [facility] ([place] CFUNGBon 05-23-2024 CFUNGB Normal [facility] ([place] CFUNGB Normal [facility] ([place] .Auto Diffon 05-15-2024 Basophil, Absolute 0.0 10 3/mcL Normal 0.0-0.3 [facility] ([place] Comment on above: Performed By: #### B MP, ADIFF, CBC, ANEU, GFR, MG ####[address] [address] Basophils/100 WBC (Bld) 0.1 % Normal 0.0-2.5 [facility] ([place] Comment on above: Performed By: #### B MP, ADIFF, CBC, ANEU, GFR, MG ####[address] [address] Eosinophil, Absolute 0.0 10 3/mcL Normal 0.0-0.7 [facility] ([place] Comment on above: Performed By: #### B MP, ADIFF, CBC, ANEU, GFR, MG ####[address] [address] Eosinophils/100 WBC (Bld) 0.0 % Normal 0.0-6.0 [facility] ([place] Comment on above: Performed By: #### B MP, ADIFF, CBC, ANEU, GFR, MG ####[address] [address] Lymphocyte, Absolute 1.1 10 3/mcL Normal 0.9-4.3 [facility] ([place] Comment on above: Performed By: #### B MP, ADIFF, CBC, ANEU, GFR, MG ####[address] [address] Lymphocytes/100 WBC (Bld) 12.1 % Low 20.0-40.0 [facility] ([place]) Comment on above: Performed By: #### B MP, ADIFF, CBC, ANEU, GFR, MG ####[address] [address] Monocyte, Absolute 0.9 10 3/mcL Normal 0.1-1.4 [facility] ([place] Comment on above: Performed By: #### B MP, ADIFF, CBC, ANEU, GFR, MG ####[address] [address] Monocytes/100 WBC (Bld) 9.0 % Normal 2.0-13.0 [facility] [place] Comment on above: Performed By: #### B MP, ADIFF, CBC, ANEU, GFR, MG ####[address] [address] Neutrophils/100 WBC (Bld) 78.8 % High 50.0-75.0 [facility] [place] Comment on above: Performed By: #### B MP, ADIFF, CBC, ANEU, GFR, MG ####[address] [address] .GFRon 05-15-2024 GFR 29 ml/min/1.73sqm Normal [facility] ([place] Comment on above: Result Comment: GFR Population [...] B MP, ADIFF, CBC, ANEU, GFR, MG ####[address] [address] GFR Non- 24 ml/min/1.73sqm Normal [facility] ([place] Comment on above: Result Comment: GFR Population [...] B MP, ADIFF, CBC, ANEU, GFR, MG ####[address] [address] .NEUABSon 05-15-2024 Neutrophil, Absolute 7.4 10 3/mcL Normal 2.3-8.1 [facility] [place] Comment on above: Performed By: #### B MP, ADIFF, CBC, ANEU, GFR, MG ####[address] [address] BMPon 05-15-2024 BUN/Creatinine Ratio 22.6 ratio High 10.0-22.0 [facility] ([place] Comment on above: Performed By: #### B MP, ADIFF, CBC, ANEU, GFR, MG ####[address] [address] Calcium [Mass/Vol] 7.6 mg/dL Low 8.7-10.4 On license of [facility] ([place] Comment on above: Performed By: #### B MP, ADIFF, CBC, ANEU, GFR, MG ####[place] [address] Chloride [Moles/Vol] 103 mmol/L Normal 98-110 [facility] [place] Comment on above: Performed By: #### B MP, ADIFF, CBC, ANEU, GFR, MG ####[address] [address] CO2 [Moles/Vol] 20 mmol/L Low 22-32 [facility] ([place] Comment on above: Performed By: #### B MP, ADIFF, CBC, ANEU, GFR, MG ####[address] [address] Creatinine [Mass/Vol] 2.88 mg/dL High 0.60-1.40 [facility] ([place] Comment on above: Performed By: #### B MP, ADIFF, CBC, ANEU, GFR, MG ####[place] [address] Electrolyte Balance 8.0 mEq/L Normal 4.0-15.0 [facility] ([place] Comment on above: Performed By: #### B MP, ADIFF, CBC, ANEU, GFR, MG ####[address] [address] Glucose [Mass/Vol] 279 mg/dL High 70-110 On license of [facility] ([place] Comment on above: Performed By: #### B MP, ADIFF, CBC, ANEU, GFR, MG ####[place] [address] Potassium [Moles/Vol] 5.7 mmol/L High 3.5-5.0 [facility] [place] Comment on above: Performed By: #### B MP, ADIFF, CBC, ANEU, GFR, MG ####[place] [address] Sodium [Moles/Vol] 131 mmol/L Low 136-145 On license of [facility] ([place] Comment on above: Performed By: #### B MP, ADIFF, CBC, ANEU, GFR, MG ####[place] [address] Urea nitrogen [Mass/Vol] 65.0 mg/dL High 8.0-22.0 [facility] [place] Comment on above: Performed By: #### B MP, ADIFF, CBC, ANEU, GFR, MG ####[place] [address] CBCon 05-15-2024 Erythrocyte distribution width (RBC) [Ratio] 19.9 % High 11.5-15.5 [facility] [place] Comment on above: Performed By: #### B MP, ADIFF, CBC, ANEU, GFR, MG ####[place] [address] Hematocrit (Bld) [Volume fraction] 24.5 % Low 40.0-52.0 [facility] [place] Comment on above: Performed By: #### B MP, ADIFF, CBC, ANEU, GFR, MG ####[place] [address] Hgb 8.1 G/dL Low 13.0-17.5 [facility] [place] Comment on above: Performed By: #### B MP, ADIFF, CBC, ANEU, GFR, MG ####[place] [address] MCH (RBC) [Entitic mass] 27.3 pg Normal 27.0-33.0 [facility] [place] Comment on above: Performed By: #### B MP, ADIFF, CBC, ANEU, GFR, MG ####[place] [address] MCHC 33.1 G/dL Normal 32.0-36.0 [facility] ([place] Comment on above: Performed By: #### B MP, ADIFF, CBC, ANEU, GFR, MG ####[place] [address] MCV (RBC) [Entitic vol] 82.6 fL Normal 81.0-100.0 [facility] [place] Comment on above: Performed By: #### B MP, ADIFF, CBC, ANEU, GFR, MG ####[place] [address] Platelet 153 10 3/mcL Normal 150-450 [facility] ([place] Comment on above: Performed By: #### B MP, ADIFF, CBC, ANEU, GFR, MG ####[place] [address] Platelet mean volume (Bld) [Entitic vol] 8.8 fL Normal 6.4-10.5 [facility] [place] Comment on above: Performed By: #### B MP, ADIFF, CBC, ANEU, GFR, MG ####[place] [address] RBC 2.97 10 6/mcL Low 4.50-6.00 [facility] ([place] Comment on above: Performed By: #### B MP, ADIFF, CBC, ANEU, GFR, MG ####[place] [address] WBC 9.4 10 3/mcL Normal 4.5-10.8 [facility] ([place] Comment on above: Performed By: #### B MP, ADIFF, CBC, ANEU, GFR, MG ####[place] [address] Rainer 05-15-2024 Potassium [Moles/Vol] 5.0 mmol/L Normal 3.5-5.0 [facility] ([place] Comment on above: Performed By: #### K ####[place] [address] LABORATORYOrdered By: Reanna Gannon on 05-15-2024 Blood Glucose Testing Reason Routine (05/15/24 4:36 PM) [facility] Work Phone: Glucose [Mass/Vol] 163 mg/dL High 70 - 110 mg/dL [facility] Work Phone: LABORATORYOrdered By: SYSTEM SYSTEM on 05-15-2024 Potassium [Moles/Vol] 5.0 mmol/L Normal 3.5 - 5.0 mEq/L AH ADM SS Basophils (Bld) [#/Vol] 0.0 103/mcL Normal 0.0 - 0.3 10^3/mcL AH Workflow SS Basophils/100 WBC (Bld) 0.1 % Normal 0.0 - 2.5 % AH Workflow SS Calcium [Mass/Vol] 7.6 mg/dL Low 8.7 - 10. 4 mg/dL ADM SS Chloride [Moles/Vol] 103 mmol/L Normal 98 - 11 0 mEq/L ADM SS CO2 [Moles/Vol] 20 mmol/L Low 22 - 32 mEq/L AH ADM SS Creatinine [Mass/Vol] 2.88 mg/dL High 0.60 - 1.40 mg/dL AH ADM SS Electrolyte Balance 8.0 mEq/L Normal [...] 65.0 mg/dL High 8.0 - 22.0 mg/dL AH ADM SS Urea nitrogen/Creatinine [Mass ratio] 22.6 ratio High 10.0 - 22.0 ratio ADM SS WBC (Bld) [#/Vol] 9.4 103/mcL Normal 4.5 - 10.8 10^3/mcL Workflow SS LABORATORYOrdered By: Stacy Heller on 05-15-2024 Blood Glucose Testing Reason Routine (05/15/24 11:47 AM) [facility] Work Phone: Glucose [Mass/Vol] 189 mg/dL High 70 - 110 mg/dL [facility] Work Phone: LABORATORYOrdered By: Carina Carcamo on 05-15-2024 Blood Glucose Testing Reason Routine (05/15/24 8:14 AM) [facility] Work Phone: Glucose [Mass/Vol] 252 mg/dL High 70 - 110 mg/dL [facility] Work Phone: MGon 05-15-2024 Magnesium [Mass/Vol] 1.8 mg/dL Normal 1.6-2.4 [facility] ([place] Comment on above: Performed By: #### B PEDRO VENEGASIFF, CBC, ANEU, GFR, MG ####[address] [address] .Auto Diffon 05-14-2024 Basophil, Absolute 0.0 10 3/mcL Normal 0.0-0.3 [facility] ([place] Comment on above: Performed By: #### A DIFF, GFR, CBC, MG, BMP, ANEU ####[address] [address] Basophils/100 WBC (Bld) 0.6 % Normal 0.0-2.5 [facility] ([place]) Comment on above: Performed By: #### A DIFF, GFR, CBC, MG, BMP, ANEU ####[address] [address] Eosinophil, Absolute 0.3 10 3/mcL Normal 0.0-0.7 [facility] ([place]) Comment on above: Performed By: #### A DIFF, GFR, CBC, MG, BMP, ANEU ####[address] [address] Eosinophils/100 WBC (Bld) 3.8 % Normal 0.0-6.0 [facility] ([place] Comment on above: Performed By: #### A DIFF, GFR, CBC, MG, BMP, ANEU ####[address] [address] Lymphocyte, Absolute 1.5 10 3/mcL Normal 0.9-4.3 [facility] ([place]) Comment on above: Performed By: #### A DIFF, GFR, CBC, MG, BMP, ANEU ####[address] [address] Lymphocytes/100 WBC (Bld) 21.4 % Normal 20.0-40.0 [facility] ([place] Comment on above: Performed By: #### A DIFF, GFR, CBC, MG, BMP, ANEU ####[address] [address] Monocyte, Absolute 1.0 10 3/mcL Normal 0.1-1.4 [facility] ([place] Comment on above: Performed By: #### A DIFF, GFR, CBC, MG, BMP, ANEU ####[address] [address] Monocytes/100 WBC (Bld) 14.4 % High 2.0-13.0 [facility] ([place] Comment on above: Performed By: #### A DIFF, GFR, CBC, MG, BMP, ANEU ####[address] [address] Neutrophils/100 WBC (Bld) 59.8 % Normal 50.0-75.0 [facility] ([place] Comment on above: Performed By: #### A DIFF, GFR, CBC, MG, BMP, ANEU ####[address] [address] .GFRon 05-14-2024 GFR Non- 20 ml/min/1.73sqm Normal [facility] ([place] Comment on above: Result Comment: GFR Population [...] A DIFF, GFR, CBC, MG, BMP, ANEU ####[address] [address] GFR 25 ml/min/1.73sqm Normal [facility] ([place] Comment on above: Result Comment: GFR Population [...] A DIFF, GFR, CBC, MG, BMP, ANEU ####[place] [address] .NEUABSon 05-14-2024 Neutrophil, Absolute 4.1 10 3/mcL Normal 2.3-8.1 [facility] ([place] Comment on above: Performed By: #### A DIFF, GFR, CBC, MG, BMP, ANEU ####[place] [address] BMPon 05-14-2024 BUN/Creatinine Ratio 18.0 ratio Normal 10.0-22.0 [facility] ([place] Comment on above: Performed By: #### A DIFF, GFR, CBC, MG, BMP, ANEU ####[place] [address] Calcium [Mass/Vol] 8.0 mg/dL Low 8.7-10.4 On license of [facility] ([place]) Comment on above: Performed By: #### A DIFF, GFR, CBC, MG, BMP, ANEU ####[place] [address] Chloride [Moles/Vol] 101 mmol/L Normal 98-110 [facility] ([place] Comment on above: Performed By: #### A DIFF, GFR, CBC, MG, BMP, ANEU ####[place] [address] CO2 [Moles/Vol] 23 mmol/L Normal 22-32 [facility] ([place] Comment on above: Performed By: #### A DIFF, GFR, CBC, MG, BMP, ANEU ####[place] [address] Creatinine [Mass/Vol] 3.28 mg/dL High 0.60-1.40 [facility] ([place]) Comment on above: Performed By: #### A DIFF, GFR, CBC, MG, BMP, ANEU ####[place] [address] Electrolyte Balance 5.0 mEq/L Normal 4.0-15.0 [facility] ([place]) Comment on above: Performed By: #### A DIFF, GFR, CBC, MG, BMP, ANEU ####[place] [address] Glucose [Mass/Vol] 160 mg/dL High 70-110 On license of [facility] ([place] Comment on above: Performed By: #### A DIFF, GFR, CBC, MG, BMP, ANEU ####[place] [address] Potassium [Moles/Vol] 5.1 mmol/L High 3.5-5.0 [facility] ([place] Comment on above: Performed By: #### A DIFF, GFR, CBC, MG, BMP, ANEU ####[place] [address] Sodium [Moles/Vol] 129 mmol/L Low 136-145 On license of [facility] ([place] Comment on above: Performed By: #### A DIFF, GFR, CBC, MG, BMP, ANEU ####[place] [address] Urea nitrogen [Mass/Vol] 59.0 mg/dL High 8.0-22.0 [facility] ([place] Comment on above: Performed By: #### A DIFF, GFR, CBC, MG, BMP, ANEU ####[place] [address] CBCon 05-14-2024 Erythrocyte distribution width (RBC) [Ratio] 20.0 % High 11.5-15.5 [facility] ([place] Comment on above: Performed By: #### A DIFF, GFR, CBC, MG, BMP, ANEU ####[place] [address] Hematocrit (Bld) [Volume fraction] 24.8 % Low 40.0-52.0 [facility] ([place] Comment on above: Performed By: #### A DIFF, GFR, CBC, MG, BMP, ANEU ####[place] [address] Hgb 8.3 G/dL Low 13.0-17.5 [facility] ([place] Comment on above: Performed By: #### A DIFF, GFR, CBC, MG, BMP, ANEU ####[place] [address] MCH (RBC) [Entitic mass] 27.4 pg Normal 27.0-33.0 [facility] ([place] Comment on above: Performed By: #### A DIFF, GFR, CBC, MG, BMP, ANEU ####[place] [address] MCHC 33.4 G/dL Normal 32.0-36.0 [facility] ([place] Comment on above: Performed By: #### A DIFF, GFR, CBC, MG, BMP, ANEU ####[place] [address] MCV (RBC) [Entitic vol] 82.1 fL Normal 81.0-100.0 [facility] ([place] Comment on above: Performed By: #### A DIFF, GFR, CBC, MG, BMP, ANEU ####[place] [address] Platelet 121 10 3/mcL Low 150-450 [facility] ([place] Comment on above: Performed By: #### A DIFF, GFR, CBC, MG, BMP, ANEU ####[place] [address] Platelet mean volume (Bld) [Entitic vol] 8.6 fL Normal 6.4-10.5 [facility] ([place] Comment on above: Performed By: #### A DIFF, GFR, CBC, MG, BMP, ANEU ####[place] [address] RBC 3.02 10 6/mcL Low 4.50-6.00 [facility] ([place] Comment on above: Performed By: #### A DIFF, GFR, CBC, MG, BMP, ANEU ####[place] [address] WBC 6.8 10 3/mcL Normal 4.5-10.8 [facility] ([place] Comment on above: Performed By: #### A DIFF, GFR, CBC, MG, BMP, ANEU ####[place] [address] LABORATORYOrdered By: SYSTEM SYSTEM on 05-14-2024 Basophils [...] 23 mmol/L Normal 22 - 32 mEq/L AH ADM SS Creatinine [Mass/Vol] 3.28 mg/dL High 0.60 - 1.40 mg/dL ADM SS Electrolyte Balance 5.0 mEq/L Normal 4.0 - 15 .0 mEq/L ADM SS Eosinophils (Bld) [#/Vol] 0.3 103/mcL Normal 0.0 - 0.7 10^3/mcL Workflow SS Eosinophils/100 WBC (Bld) 3.8 % Normal 0.0 - 6.0 % Workflow SS Erythrocyte distribution width (RBC) [Ratio] 20.0 % High 11.5 - 15.5 % AH [...] 160 mg/dL High 70 - 110 mg/dL AH ADM SS Hematocrit (Bld) [Volume fraction] 24.8 [...] AH ADM SS MCH (RBC) [Entitic mass] 27.4 pg Normal 27.0 - 33.0 pg AH Workflow SS MCHC 33.4 G/dL Normal 32.0 - 36.0 G/dL AH Workflow SS MCV (RBC) [Entitic vol] 82.1 fL Normal 81.0 - 100.0 fL AH Workflow SS Monocytes (Bld) [#/Vol] 1.0 103/mcL Normal 0.1 - 1.4 10^3/mcL AH Workflow SS Monocytes/100 WBC (Bld) 14.4 % High 2.0 - 13.0 % AH Workflow SS Neutrophils (Bld) [#/Vol] 4.1 103/mcL Normal 2.3 - 8.1 10^3/mcL AH Workflow SS Neutrophils/100 WBC (Bld) 59.8 % Normal 50.0 - 75.0 % AH Workflow SS Platelet mean volume (Bld) [Entitic vol] 8.6 fL Normal 6.4 - 10.5 fL AH Workflow SS Platelets (Bld) [#/Vol] 121 103/mcL Low 150 - 450 10^3/mcL AH Workflow SS Potassium [Moles/Vol] 5.1 mmol/L High 3.5 - 5.0 mEq/L AH ADM SS RBC (Bld) [#/Vol] 3.02 106/mcL [...] - 10.8 10^3/mcL AH Workflow SS MGon 05-14-2023 Magnesium [Mass/Vol] 1.9 mg/dL Normal 1.6-2.4 [facility] ([place] Comment on above: Performed By: #### A DIFF, GFR, CBC, MG, BMP, ANEU ####[address] [address] .Auto Diffon 05-13-2024 Basophil, Absolute 0.0 10 3/mcL Normal 0.0-0.3 [facility] ([place] Comment on above: Performed By: #### C BC, GFR, MG, BMP, ADIFF, ANEU ####[address] [address] Basophils/100 WBC (Bld) 0.5 % Normal 0.0-2.5 [facility] ([place] Comment on above: Performed By: #### C BC, GFR, MG, BMP, ADIFF, ANEU ####[address] [address] Eosinophil, Absolute 0.2 10 3/mcL Normal 0.0-0.7 [facility] ([place] Comment on above: Performed By: #### C BC, GFR, MG, BMP, ADIFF, ANEU ####[address] [address] Eosinophils/100 WBC (Bld) 2.6 % Normal 0.0-6.0 [facility] ([place] Comment on above: Performed By: #### C BC, GFR, MG, BMP, ADIFF, ANEU ####[address] [address] Lymphocyte, Absolute 1.3 10 3/mcL Normal 0.9-4.3 [facility] ([place]) Comment on above: Performed By: #### C BC, GFR, MG, BMP, ADIFF, ANEU ####[address] [address] Lymphocytes/100 WBC (Bld) 18.1 % Low 20.0-40.0 [facility] ([place]) Comment on above: Performed By: #### C BC, GFR, MG, BMP, ADIFF, ANEU ####[address] [address] Monocyte, Absolute 1.0 10 3/mcL Normal 0.1-1.4 [facility] ([place] Comment on above: Performed By: #### C BC, GFR, MG, BMP, ADIFF, ANEU ####[address] [address] Monocytes/100 WBC (Bld) 13.3 % High 2.0-13.0 [facility] ([place] Comment on above: Performed By: #### C BC, GFR, MG, BMP, ADIFF, ANEU ####[address] [address] Neutrophils/100 WBC (Bld) 65.5 % Normal 50.0-75.0 [facility] ([place]) Comment on above: Performed By: #### C BC, GFR, MG, BMP, ADIFF, ANEU ####[address] [address] .GFRon 05-13-2024 GFR 25 ml/min/1.73sqm Normal [facility] ([place]) Comment on above: Result Comment: GFR [...] meters Performed By: #### G FR, BMP ####[address] [address] GFR Non- 21 ml/min/1.73sqm Normal [facility] ([place] Comment on above: Result Comment: GFR Population [...] meters Performed By: #### G FR, BMP ####[place] [id number] GFR 26 ml/min/1.73sqm Normal [facility] ([place] Comment on above: Result Comment: GFR Population [...] C BC, GFR, MG, BMP, ADIFF, ANEU ####[address] [address] GFR Non- 22 ml/min/1.73sqm Normal [facility] ([place] Comment on above: Result Comment: GFR Population [...] C BC, GFR, MG, BMP, ADIFF, ANEU ####[address] [address] .NEUABSon 05-13-2024 Neutrophil, Absolute 4.9 10 3/mcL Normal 2.3-8.1 [facility] ([place] Comment on above: Performed By: #### C BC, GFR, MG, BMP, ADIFF, ANEU ####[address] [address] BMPon 05-13-2024 BUN/Creatinine Ratio 19.1 ratio Normal 10.0-22.0 [facility] ([place] Comment on above: Performed By: #### G FR, BMP ####[address] [address] Calcium [Mass/Vol] 7.6 mg/dL Low 8.7-10.4 On license of [facility] ([place] Comment on above: Performed By: #### G FR, BMP ####[address] [address] Chloride [Moles/Vol] 100 mmol/L Normal 98-110 [facility] ([place] Comment on above: Performed By: #### G FR, BMP ####[address] [address] CO2 [Moles/Vol] 21 mmol/L Low 22-32 [facility] ([place] Comment on above: Performed By: #### G FR, BMP ####[address] [address] Creatinine [Mass/Vol] 3.25 mg/dL High 0.60-1.40 [facility] ([place] Comment on above: Performed By: #### G FR, BMP ####[address] [address] Electrolyte Balance 11.0 mEq/L Normal 4.0-15.0 [facility] ([place] Comment on above: Performed By: #### G FR, BMP ####[address] [address] Glucose [Mass/Vol] 166 mg/dL High 70-110 On license of [facility] ([place] Comment on above: Performed By: #### G FR, BMP ####[address] [address] Potassium [Moles/Vol] 5.4 mmol/L High 3.5-5.0 [facility] ([place] Comment on above: Result Comment: Spec imen slightly hemolyzed. Performed By: #### G FR, BMP ####[address] [address] Sodium [Moles/Vol] 132 mmol/L Low 136-145 On license of [facility] ([place] Comment on above: Performed By: #### G FR, BMP ####[address] [address] Urea nitrogen [Mass/Vol] 62.0 mg/dL High 8.0-22.0 [facility] ([place] Comment on above: Performed By: #### G FR, BMP ####[address] [address] BUN/Creatinine Ratio 17.9 ratio Normal 10.0-22.0 [facility] ([place] Comment on above: Performed By: #### C BC, GFR, MG, BMP, ADIFF, ANEU ####[address] [address] Calcium [Mass/Vol] 8.0 mg/dL Low 8.7-10.4 On license of [facility] ([place] Comment on above: Performed By: #### C BC, GFR, MG, BMP, ADIFF, ANEU ####[address] [address] Chloride [Moles/Vol] 101 mmol/L Normal 98-110 [facility] ([place] Comment on above: Performed By: #### C BC, GFR, MG, BMP, ADIFF, ANEU ####[address] [address] CO2 [Moles/Vol] 21 mmol/L Low 22-32 [facility] ([place] Comment on above: Performed By: #### C BC, GFR, MG, BMP, ADIFF, ANEU ####[place] [address] Creatinine [Mass/Vol] 3.12 mg/dL High 0.60-1.40 [facility] ([place] Comment on above: Performed By: #### C BC, GFR, MG, BMP, ADIFF, ANEU ####[address] [address] Electrolyte Balance 9.0 mEq/L Normal 4.0-15.0 [facility] ([place] Comment on above: Performed By: #### C BC, GFR, MG, BMP, ADIFF, ANEU ####[address] [address] Glucose [Mass/Vol] 161 mg/dL High 70-110 On license of [facility] ([place] Comment on above: Performed By: #### C BC, GFR, MG, BMP, ADIFF, ANEU ####[address] [address] Potassium [Moles/Vol] 5.1 mmol/L High 3.5-5.0 [facility] ([place] Comment on above: Performed By: #### C BC, GFR, MG, BMP, ADIFF, ANEU ####[place] [address] Sodium [Moles/Vol] 131 mmol/L Low 136-145 On license of [facility] ([place] Comment on above: Performed By: #### C BC, GFR, MG, BMP, ADIFF, ANEU ####[place] [address] Urea nitrogen [Mass/Vol] 56.0 mg/dL High 8.0-22.0 [facility] ([place] Comment on above: Performed By: #### C BC, GFR, MG, BMP, ADIFF, ANEU ####[place] [address] CBCon 05-13-2024 Erythrocyte distribution width (RBC) [Ratio] 19.2 % High 11.5-15.5 [facility] ([place] Comment on above: Performed By: #### C BC, GFR, MG, BMP, ADIFF, ANEU ####[place] [address] Hematocrit (Bld) [Volume fraction] 25.1 % Low 40.0-52.0 [facility] ([place] Comment on above: Performed By: #### C BC, GFR, MG, BMP, ADIFF, ANEU ####[place] [address] Hgb 8.2 G/dL Low 13.0-17.5 [facility] ([place] Comment on above: Performed By: #### C BC, GFR, MG, BMP, ADIFF, ANEU ####[place] [address] MCH (RBC) [Entitic mass] 27.1 pg Normal 27.0-33.0 [facility] ([place] Comment on above: Performed By: #### C BC, GFR, MG, BMP, ADIFF, ANEU ####[place] [address] MCHC 32.7 G/dL Normal 32.0-36.0 [facility] ([place] Comment on above: Performed By: #### C BC, GFR, MG, BMP, ADIFF, ANEU ####[place] [address] MCV (RBC) [Entitic vol] 83.0 fL Normal 81.0-100.0 [facility] ([place] Comment on above: Performed By: #### C BC, GFR, MG, BMP, ADIFF, ANEU ####[place] [address] Platelet 101 10 3/mcL Low 150-450 [facility] ([place] Comment on above: Performed By: #### C BC, GFR, MG, BMP, ADIFF, ANEU ####[place] [address] Platelet mean volume (Bld) [Entitic vol] 8.2 fL Normal 6.4-10.5 [facility] ([place] Comment on above: Performed By: #### C BC, GFR, MG, BMP, ADIFF, ANEU ####[place] [address] RBC 3.03 10 6/mcL Low 4.50-6.00 [facility] ([place] Comment on above: Performed By: #### C BC, GFR, MG, BMP, ADIFF, ANEU ####[place] [address] WBC 7.4 10 3/mcL Normal 4.5-10.8 [facility] ([place] Comment on above: Performed By: #### C BC, GFR, MG, BMP, ADIFF, ANEU ####[place] [address] LABORATORYOrdered By: SYSTEM SYSTEM on 05-13-2024 Calcium [Mass/Vol] 7.6 mg/dL Low 8.7 - 10. 4 mg/dL ADM SS Chloride [Moles/Vol] 100 mmol/L Normal 98 - 11 0 mEq/L AH ADM SS CO2 [Moles/Vol] 21 mmol/L Low 22 - 32 mEq/L ADM SS Creatinine [Mass/Vol] 3.25 mg/dL High 0.60 - 1.40 mg/dL ADM SS Electrolyte Balance 11.0 mEq/L Normal 4.0 - 15 .0 mEq/L ADM SS GFR/1.73 sq M.predicted among blacks MDRD (S/P/Bld) [Vol rate/Area] 25 ml/min/1.73sqm Invalid Interpretation Code [facility] Comment on above: Interpretive Data: GFR Population [...] [Vol rate/Area] 21 ml/min/1.73sqm Invalid Interpretation Code [facility] Comment on above: Interpretive Data: GFR Population [...] 19.1 ratio Normal 10.0 - 22.0 ratio ADM SS Basophils (Bld) [#/Vol] 0.0 103/mcL Normal 0.0 - 0.3 10^3/mcL AH Workflow SS Basophils/100 WBC (Bld) 0.5 % Normal 0.0 - 2.5 % AH Workflow SS Eosinophils (Bld) [#/Vol] 0.2 103/mcL Normal 0.0 - 0.7 10^3/mcL AH Workflow SS Eosinophils/100 WBC (Bld) 2.6 % [...] - 10.8 10^3/mcL AH Workflow SS MGon 05-13-2023 Magnesium [Mass/Vol] 2.0 mg/dL Normal 1.6-2.4 [facility] ([place] Comment on above: Performed By: #### C BC, GFR, MG, BMP, ADIFF, ANEU ####[address] [address] .Auto Diffon 05-12-2024 Basophil, Absolute 0.1 10 3/mcL Normal 0.0-0.3 [facility] ([place] Comment on above: Performed By: #### B MP, CBC, ADIFF, ANEU, GFR, MG ####[address] [address] Basophils/100 WBC (Bld) 0.5 % Normal 0.0-2.5 [facility] ([place] Comment on above: Performed By: #### B MP, CBC, ADIFF, ANEU, GFR, MG ####[address] [address] Eosinophil, Absolute 0.2 10 3/mcL Normal 0.0-0.7 [facility] ([place] Comment on above: Performed By: #### B MP, CBC, ADIFF, ANEU, GFR, MG ####[address] [address] Eosinophils/100 WBC (Bld) 1.6 % Normal 0.0-6.0 [facility] ([place] Comment on above: Performed By: #### B MP, CBC, ADIFF, ANEU, GFR, MG ####[address] [address] Lymphocyte, Absolute 1.7 10 3/mcL Normal 0.9-4.3 [facility] ([place] Comment on above: Performed By: #### B MP, CBC, ADIFF, ANEU, GFR, MG ####[address] [address] Lymphocytes/100 WBC (Bld) 16.4 % Low 20.0-40.0 [facility] ([place] Comment on above: Performed By: #### B MP, CBC, ADIFF, ANEU, GFR, MG ####[address] [address] Monocyte, Absolute 1.6 10 3/mcL High 0.1-1.4 [facility] ([place] Comment on above: Performed By: #### B MP, CBC, ADIFF, ANEU, GFR, MG ####[address] [address] Monocytes/100 WBC (Bld) 15.4 % High 2.0-13.0 [facility] ([place] Comment on above: Performed By: #### B MP, CBC, ADIFF, ANEU, GFR, MG ####[address] [address] Neutrophils/100 WBC (Bld) 66.1 % Normal 50.0-75.0 [facility] ([place] Comment on above: Performed By: #### B MP, CBC, ADIFF, ANEU, GFR, MG ####[address] [address] .GFRon 05-12-2024 GFR Non- 23 ml/min/1.73sqm Normal [facility] ([place] Comment on above: Result Comment: GFR Population [...] B MP, CBC, ADIFF, ANEU, GFR, MG ####[address] [address] GFR 28 ml/min/1.73sqm Normal [facility] ([place] Comment on above: Result Comment: GFR Population [...] B MP, CBC, ADIFF, ANEU, GFR, MG ####[place] [address] .NEUABSon 05-12-2024 Neutrophil, Absolute 6.7 10 3/mcL Normal 2.3-8.1 [facility] ([place] Comment on above: Performed By: #### B MP, CBC, ADIFF, ANEU, GFR, MG ####[place] [address] BMPon 05-12-2024 BUN/Creatinine Ratio 19.0 ratio Normal 10.0-22.0 [facility] ([place] Comment on above: Performed By: #### B MP, CBC, ADIFF, ANEU, GFR, MG ####[place] [address] Calcium [Mass/Vol] 7.8 mg/dL Low 8.7-10.4 On license of [facility] ([place] Comment on above: Performed By: #### B MP, CBC, ADIFF, ANEU, GFR, MG ####[place] [address] Chloride [Moles/Vol] 101 mmol/L Normal 98-110 [facility] ([place] Comment on above: Performed By: #### B MP, CBC, ADIFF, ANEU, GFR, MG ####[place] [address] CO2 [Moles/Vol] 22 mmol/L Normal 22-32 [facility] ([place] Comment on above: Performed By: #### B MP, CBC, ADIFF, ANEU, GFR, MG ####[address] [address] Creatinine [Mass/Vol] 2.90 mg/dL High 0.60-1.40 [facility] ([place] Comment on above: Performed By: #### B MP, CBC, ADIFF, ANEU, GFR, MG ####[place] [address] Electrolyte Balance 8.0 mEq/L Normal 4.0-15.0 [facility] ([place] Comment on above: Performed By: #### B MP, CBC, ADIFF, ANEU, GFR, MG ####[place] [address] Glucose [Mass/Vol] 197 mg/dL High 70-110 On license of [facility] ([place] Comment on above: Performed By: #### B MP, CBC, ADIFF, ANEU, GFR, MG ####[place] [address] Potassium [Moles/Vol] 5.2 mmol/L High 3.5-5.0 [facility] ([place] Comment on above: Performed By: #### B MP, CBC, ADIFF, ANEU, GFR, MG ####[place] [address] Sodium [Moles/Vol] 131 mmol/L Low 136-145 On license of [facility] ([place] Comment on above: Performed By: #### B MP, CBC, ADIFF, ANEU, GFR, MG ####[address] [address] Urea nitrogen [Mass/Vol] 55.0 mg/dL High 8.0-22.0 [facility] ([place] Comment on above: Performed By: #### B MP, CBC, ADIFF, ANEU, GFR, MG ####[address] [address] CBCon 06-24-2024 Erythrocyte distribution width (RBC) [Ratio] 20.1 % High 11.5-15.5 [facility] ([place] Comment on above: Performed By: #### B MP, CBC, ADIFF, ANEU, GFR, MG ####[place] [address] Hematocrit (Bld) [Volume fraction] 25.9 % Low 40.0-52.0 [facility] ([place] Comment on above: Performed By: #### B MP, CBC, ADIFF, ANEU, GFR, MG ####[place] [address] Hgb 8.8 G/dL Low 13.0-17.5 [facility] ([place] Comment on above: Performed By: #### B MP, CBC, ADIFF, ANEU, GFR, MG ####[place] [address] MCH (RBC) [Entitic mass] 27.9 pg Normal 27.0-33.0 [facility] ([place] Comment on above: Performed By: #### B MP, CBC, ADIFF, ANEU, GFR, MG ####[place] [address] MCHC 33.9 G/dL Normal 32.0-36.0 [facility] ([place] Comment on above: Performed By: #### B MP, CBC, ADIFF, ANEU, GFR, MG ####[place] [address] MCV (RBC) [Entitic vol] 82.4 fL Normal 81.0-100.0 [facility] ([place] Comment on above: Performed By: #### B MP, CBC, ADIFF, ANEU, GFR, MG ####[place] [address] Platelet 117 10 3/mcL Low 150-450 [facility] ([place] Comment on above: Performed By: #### B MP, CBC, ADIFF, ANEU, GFR, MG ####[place] [address] Platelet mean volume (Bld) [Entitic vol] 7.9 fL Normal 6.4-10.5 [facility] ([place] Comment on above: Performed By: #### B MP, CBC, ADIFF, ANEU, GFR, MG ####[place] [address] RBC 3.14 10 6/mcL Low 4.50-6.00 [facility] ([place] Comment on above: Performed By: #### B MP, CBC, ADIFF, ANEU, GFR, MG ####[place] [address] WBC 10.1 10 3/mcL Normal 4.5-10.8 [facility] ([place]) Comment on above: Performed By: #### B MP, CBC, ADIFF, ANEU, GFR, MG ####[place] [id number] [place] 05-12-2024 Potassium [Moles/Vol] 5.2 mmol/L High 3.5-5.0 [facility] ([place]) Comment on above: Performed By: #### K ####[place] [address] MGon 05-12-2024 Magnesium [Mass/Vol] 2.1 mg/dL Normal 1.6-2.4 [facility] ([place]) Comment on above: Performed By: #### B MP, CBC, ADIFF, ANEU, GFR, MG ####[place] [id number] .Auto Diffon 05-11-2024 Basophil, Absolute 0.1 10 3/mcL Normal 0.0-0.3 [facility] ([place]) Comment on above: Performed By: #### A DIFF, MG, ANEU, BMP, CBC, GFR ####[place] [address] Basophils/100 WBC (Bld) 0.6 % Normal 0.0-2.5 [facility] [facility] [place] Comment on above: Performed By: #### A DIFF, MG, ANEU, BMP, CBC, GFR ####[place] [address] Eosinophil, Absolute 0.1 10 3/mcL Normal 0.0-0.7 [facility] ([place]) Comment on above: Performed By: #### A DIFF, MG, ANEU, BMP, CBC, GFR ####[address] [address] Eosinophils/100 WBC (Bld) 1.2 % Normal 0.0-6.0 [facility] ([place] Comment on above: Performed By: #### A DIFF, MG, ANEU, BMP, CBC, GFR ####[address] [address] Lymphocyte, Absolute 1.8 10 3/mcL Normal 0.9-4.3 [facility] ([place] Comment on above: Performed By: #### A DIFF, MG, ANEU, BMP, CBC, GFR ####[address] [address] Lymphocytes/100 WBC (Bld) 18.3 % Low 20.0-40.0 [facility] ([place] Comment on above: Performed By: #### A DIFF, MG, ANEU, BMP, CBC, GFR ####[address] [address] Monocyte, Absolute 1.6 10 3/mcL High 0.1-1.4 [facility] ([place] Comment on above: Performed By: #### A DIFF, MG, ANEU, BMP, CBC, GFR ####[address] [address] Monocytes/100 WBC (Bld) 16.3 % High 2.0-13.0 [facility] ([place] Comment on above: Performed By: #### A DIFF, MG, ANEU, BMP, CBC, GFR ####[address] [address] Neutrophils/100 WBC (Bld) 63.6 % Normal 50.0-75.0 [facility] ([place] Comment on above: Performed By: #### A DIFF, MG, ANEU, BMP, CBC, GFR ####[address] [address] .GFRon 05-11-2024 GFR 35 ml/min/1.73sqm Normal [facility] ([place] Comment on above: Result Comment: GFR Population [...] A DIFF, MG, ANEU, BMP, CBC, GFR ####[address] [address] GFR Non- 29 ml/min/1.73sqm Normal [facility] ([place] Comment on above: Result Comment: GFR Population [...] A DIFF, MG, ANEU, BMP, CBC, GFR ####[address] [address] .NEUABSon 05-11-2024 Neutrophil, Absolute 6.2 10 3/mcL Normal 2.3-8.1 [facility] ([place] Comment on above: Performed By: #### A DIFF, MG, ANEU, BMP, CBC, GFR ####[address] [address] BMPon 05-11-2024 BUN/Creatinine Ratio 19.8 ratio Normal 10.0-22.0 [facility] [place] Comment on above: Performed By: #### A DIFF, MG, ANEU, BMP, CBC, GFR ####[address] [address] Calcium [Mass/Vol] 7.7 mg/dL Low 8.7-10.4 On license of [facility] ([place]) Comment on above: Performed By: #### A DIFF, MG, ANEU, BMP, CBC, GFR ####[place] [address] Chloride [Moles/Vol] 102 mmol/L Normal 98-110 [facility] ([place] Comment on above: Performed By: #### A DIFF, MG, ANEU, BMP, CBC, GFR ####[place] [address] CO2 [Moles/Vol] 22 mmol/L Normal 22-32 [facility] [place] Comment on above: Performed By: #### A DIFF, MG, ANEU, BMP, CBC, GFR ####[place] [address] Creatinine [Mass/Vol] 2.42 mg/dL High 0.60-1.40 [facility] ([place] Comment on above: Performed By: #### A DIFF, MG, ANEU, BMP, CBC, GFR ####[address] [address] Electrolyte Balance 9.0 mEq/L Normal 4.0-15.0 [facility] ([place] Comment on above: Performed By: #### A DIFF, MG, ANEU, BMP, CBC, GFR ####[address] [address] Glucose [Mass/Vol] 167 mg/dL High 70-110 On license of [facility] ([place] Comment on above: Performed By: #### A DIFF, MG, ANEU, BMP, CBC, GFR ####[place] [address] Potassium [Moles/Vol] 4.8 mmol/L Normal 3.5-5.0 [facility] ([place] Comment on above: Performed By: #### A DIFF, MG, ANEU, BMP, CBC, GFR ####[place] [address] Sodium [Moles/Vol] 133 mmol/L Low 136-145 On license of [facility] ([place] Comment on above: Performed By: #### A DIFF, MG, ANEU, BMP, CBC, GFR ####[place] [address] Urea nitrogen [Mass/Vol] 48.0 mg/dL High 8.0-22.0 [facility] ([place] Comment on above: Performed By: #### A DIFF, MG, ANEU, BMP, CBC, GFR ####[place] [address] CBCon 05-11-2024 Erythrocyte distribution width (RBC) [Ratio] 19.4 % High 11.5-15.5 [facility] ([place] Comment on above: Performed By: #### A DIFF, MG, ANEU, BMP, CBC, GFR ####[place] [address] Hematocrit (Bld) [Volume fraction] 27.3 % Low 40.0-52.0 [facility] [place] Comment on above: Performed By: #### A DIFF, MG, ANEU, BMP, CBC, GFR ####[place] [address] Hgb 9.3 G/dL Low 13.0-17.5 [facility] [place] Comment on above: Performed By: #### A DIFF, MG, ANEU, BMP, CBC, GFR ####[place] [address] MCH (RBC) [Entitic mass] 28.1 pg Normal 27.0-33.0 [facility] [place] Comment on above: Performed By: #### A DIFF, MG, ANEU, BMP, CBC, GFR ####[place] [address] MCHC 33.9 G/dL Normal 32.0-36.0 [facility] [place] Comment on above: Performed By: #### A DIFF, MG, ANEU, BMP, CBC, GFR ####[place] [address] MCV (RBC) [Entitic vol] 83.0 fL Normal 81.0-100.0 [facility] ([place] Comment on above: Performed By: #### A DIFF, MG, ANEU, BMP, CBC, GFR ####[place] [address] Platelet 123 10 3/mcL Low 150-450 [facility] ([place] Comment on above: Performed By: #### A DIFF, MG, ANEU, BMP, CBC, GFR ####[place] [address] Platelet mean volume (Bld) [Entitic vol] 7.8 fL Normal 6.4-10.5 [facility] ([place] Comment on above: Performed By: #### A DIFF, MG, ANEU, BMP, CBC, GFR ####[place] [address] RBC 3.29 10 6/mcL Low 4.50-6.00 [facility] ([place] Comment on above: Performed By: #### A DIFF, MG, ANEU, BMP, CBC, GFR ####[place] [address] WBC 9.8 10 3/mcL Normal 4.5-10.8 [facility] ([place] Comment on above: Performed By: #### A DIFF, MG, ANEU, BMP, CBC, GFR ####[place] [address] MGon 05-11-2024 Magnesium [Mass/Vol] 1.5 mg/dL Low 1.6-2.4 [facility] ([place] Comment on above: Performed By: #### A DIFF, MG, ANEU, BMP, CBC, GFR ####[place] [address] .Auto Diffon 05-10-2024 Basophil, Absolute 0.1 10 3/mcL Normal 0.0-0.3 [facility] [place] Comment on above: Performed By: #### B MP, ADIFF, MG, CBC, ANEU, GFR ####[address] [address] Basophils/100 WBC (Bld) 1.0 % Normal 0.0-2.5 [facility] ([place] Comment on above: Performed By: #### B MP, ADIFF, MG, CBC, ANEU, GFR ####[address] [address] Eosinophil, Absolute 0.2 10 3/mcL Normal 0.0-0.7 [facility] ([place] Comment on above: Performed By: #### B MP, ADIFF, MG, CBC, ANEU, GFR ####[address] [address] Eosinophils/100 WBC (Bld) 1.9 % Normal 0.0-6.0 [facility] [place] Comment on above: Performed By: #### B MP, ADIFF, MG, CBC, ANEU, GFR ####[address] [address] Lymphocyte, Absolute 1.8 10 3/mcL Normal 0.9-4.3 [facility] ([place] Comment on above: Performed By: #### B MP, ADIFF, MG, CBC, ANEU, GFR ####[address] [address] Lymphocytes/100 WBC (Bld) 20.7 % Normal 20.0-40.0 [facility] [place] Comment on above: Performed By: #### B MP, ADIFF, MG, CBC, ANEU, GFR ####[address] [address] Monocyte, Absolute 1.0 10 3/mcL Normal 0.1-1.4 [facility] ([place] Comment on above: Performed By: #### B MP, ADIFF, MG, CBC, ANEU, GFR ####[address] [address] Monocytes/100 WBC (Bld) 11.8 % Normal 2.0-13.0 [facility] [place] Comment on above: Performed By: #### B MP, ADIFF, MG, CBC, ANEU, GFR ####[address] [address] Neutrophils/100 WBC (Bld) 64.6 % Normal 50.0-75.0 [facility] [place] Comment on above: Performed By: #### B MP, ADIFF, MG, CBC, ANEU, GFR ####[address] [address] .GFRon 05-10-2024 GFR Non- 35 ml/min/1.73sqm Normal [facility] ([place] Comment on above: Result Comment: GFR Population [...] B MP, ADIFF, MG, CBC, ANEU, GFR ####[address] [address] GFR 42 ml/min/1.73sqm Normal [facility] ([place] Comment on above: Result Comment: GFR Population [...] B MP, ADIFF, MG, CBC, ANEU, GFR ####[address] [address] .NEUABSon 05-10-2024 Neutrophil, Absolute 5.5 10 3/mcL Normal 2.3-8.1 [facility] ([place] Comment on above: Performed By: #### B MP, ADIFF, MG, CBC, ANEU, GFR ####[address] [address] APTTon 05-10-2024 aPTT Coag (Bld) [Time] 57.1 s High 25.0-35.0 [facility] ([place] Comment on above: Result Comment: For Heparin anticoagulation therapy, the recommendedtherapeutic range is: 54-77 seconds (APTT Correlationwith Anti-Xa therapeutic range of 0.3-0.7 units/ml).PLEASE REFERENCE THE PHARMACY PROTOCOL FOR DOSING. Heparin dose (APTT) Heparin IV Normal [facility] [place] aPTT Coag (Bld) [Time] 38.9 s High 25.0-35.0 [facility] [place] Comment on above: Result Comment: For Heparin anticoagulation therapy, the recommendedtherapeutic range is: 54-77 seconds (APTT Correlationwith Anti-Xa therapeutic range of 0.3-0.7 units/ml).PLEASE REFERENCE THE PHARMACY PROTOCOL FOR DOSING. Heparin dose (APTT) Heparin IV Normal [facility] [place] BMPon 05-10-2024 BUN/Creatinine Ratio 19.8 ratio Normal 10.0-22.0 [facility] [place] Comment on above: Performed By: #### B MP, ADIFF, MG, CBC, ANEU, GFR ####[address] [address] Calcium [Mass/Vol] 8.4 mg/dL Low 8.7-10.4 On license of [facility] ([place] Comment on above: Performed By: #### B MP, ADIFF, MG, CBC, ANEU, GFR ####[address] [address] Chloride [Moles/Vol] 104 mmol/L Normal 98-110 [facility] ([place] Comment on above: Performed By: #### B MP, ADIFF, MG, CBC, ANEU, GFR ####[place] [id number] CO2 [Moles/Vol] 20 mmol/L Low 22-32 [facility] [place] Comment on above: Performed By: #### B MP, ADIFF, MG, CBC, ANEU, GFR ####[place] [address] Creatinine [Mass/Vol] 2.07 mg/dL High 0.60-1.40 [facility] ([place] Comment on above: Performed By: #### B MP, ADIFF, MG, CBC, ANEU, GFR ####[place] [address] Electrolyte Balance 14.0 mEq/L Normal 4.0-15.0 [facility] ([place] Comment on above: Performed By: #### B MP, ADIFF, MG, CBC, ANEU, GFR ####[place] [address] Glucose [Mass/Vol] 106 mg/dL Normal 70-110 On license of [facility] ([place] Comment on above: Performed By: #### B MP, ADIFF, MG, CBC, ANEU, GFR ####[place] [address] Potassium [Moles/Vol] 4.2 mmol/L Normal 3.5-5.0 [facility] ([place] Comment on above: Performed By: #### B MP, ADIFF, MG, CBC, ANEU, GFR ####[place] [address] Sodium [Moles/Vol] 138 mmol/L Normal 136-145 On license of [facility] ([place] Comment on above: Performed By: #### B MP, ADIFF, MG, CBC, ANEU, GFR ####[place] [address] Urea nitrogen [Mass/Vol] 41.0 mg/dL High 8.0-22.0 [facility] ([place] Comment on above: Performed By: #### B MP, ADIFF, MG, CBC, ANEU, GFR ####[place] [address] CBCon 05-10-2024 Erythrocyte distribution width (RBC) [Ratio] 19.4 % High 11.5-15.5 [facility] [place] Comment on above: Performed By: #### B MP, ADIFF, MG, CBC, ANEU, GFR ####[place] [address] Hematocrit (Bld) [Volume fraction] 28.8 % Low 40.0-52.0 [facility] [place] Comment on above: Performed By: #### B MP, ADIFF, MG, CBC, ANEU, GFR ####[place] [address] Hgb 9.4 G/dL Low 13.0-17.5 [facility] ([place] Comment on above: Performed By: #### B MP, ADIFF, MG, CBC, ANEU, GFR ####[place] [address] MCH (RBC) [Entitic mass] 27.1 pg Normal 27.0-33.0 [facility] [place] Comment on above: Performed By: #### B MP, ADIFF, MG, CBC, ANEU, GFR ####[place] [address] MCHC 32.7 G/dL Normal 32.0-36.0 [facility] [place] Comment on above: Performed By: #### B MP, ADIFF, MG, CBC, ANEU, GFR ####[place] [address] MCV (RBC) [Entitic vol] 82.8 fL Normal 81.0-100.0 [facility] ([place] Comment on above: Performed By: #### B MP, ADIFF, MG, CBC, ANEU, GFR ####[place] [address] Platelet 147 10 3/mcL Low 150-450 [facility] [place] Comment on above: Performed By: #### B MP, ADIFF, MG, CBC, ANEU, GFR ####[place] [address] Platelet mean volume (Bld) [Entitic vol] 7.8 fL Normal 6.4-10.5 [facility] [place] Comment on above: Performed By: #### B MP, ADIFF, MG, CBC, ANEU, GFR ####[place] [address] RBC 3.48 10 6/mcL Low 4.50-6.00 [facility] [place] Comment on above: Performed By: #### B MP, ADIFF, MG, CBC, ANEU, GFR ####[place] [address] WBC 8.5 10 3/mcL Normal 4.5-10.8 [facility] ([place] Comment on above: Performed By: #### B MP, ADIFF, MG, CBC, ANEU, GFR ####[place] [address] CWDPon 05-10-2024 CWDP Normal [facility] [place] CWDP Normal [facility] ([place]) LABORATORYOrdered By: Ryan Navarro on 05-10-2024 aPTT [...] 05-10-2024 Magnesium [Mass/Vol] 1.9 mg/dL Normal 1.6-2.4 [facility] ([place] Comment on above: Performed By: #### B MP, ADIFF, MG, CBC, ANEU, GFR ####[address] [address] .Auto Diffon 05-09-2024 Basophil, Absolute 0.1 10 3/mcL Normal 0.0-0.3 [facility] ([place] Comment on above: Performed By: #### G FR, A1C, CBC, ADIFF, ANEU, BMP, MG, LIPID ####[address] [address] Basophils/100 WBC (Bld) 0.7 % Normal 0.0-2.5 [facility] ([place] Comment on above: Performed By: #### G FR, A1C, CBC, ADIFF, ANEU, BMP, MG, LIPID ####[address] [address] Eosinophil, Absolute 0.1 10 3/mcL Normal 0.0-0.7 [facility] ([place] Comment on above: Performed By: #### G FR, A1C, CBC, ADIFF, ANEU, BMP, MG, LIPID ####[address] [address] Eosinophils/100 WBC (Bld) 1.4 % Normal 0.0-6.0 [facility] [place] Comment on above: Performed By: #### G FR, A1C, CBC, ADIFF, ANEU, BMP, MG, LIPID ####[address] [address] Lymphocyte, Absolute 1.5 10 3/mcL Normal 0.9-4.3 [facility] ([place] Comment on above: Performed By: #### G FR, A1C, CBC, ADIFF, ANEU, BMP, MG, LIPID ####[address] [address] Lymphocytes/100 WBC (Bld) 18.2 % Low 20.0-40.0 [facility] [place] Comment on above: Performed By: #### G FR, A1C, CBC, ADIFF, ANEU, BMP, MG, LIPID ####[place] [address] [address] [place] [address] Monocyte, Absolute 0.7 10 3/mcL Normal 0.1-1.4 [facility] ([place] Comment on above: Performed By: #### G FR, A1C, CBC, ADIFF, ANEU, BMP, MG, LIPID ####[address] [address] Monocytes/100 WBC (Bld) 8.9 % Normal 2.0-13.0 [facility] [place] Comment on above: Performed By: #### G FR, A1C, CBC, ADIFF, ANEU, BMP, MG, LIPID ####[address] [address] Neutrophils/100 WBC (Bld) 70.8 % Normal 50.0-75.0 [facility] [place] Comment on above: Performed By: #### G FR, A1C, CBC, ADIFF, ANEU, BMP, MG, LIPID ####[address] [address] .GFRon 05-09-2024 GFR Non- 37 ml/min/1.73sqm Normal [facility] ([place] Comment on above: Result Comment: GFR Population [...] A1C, CBC, ADIFF, ANEU, BMP, MG, LIPID ####[address] [address] GFR 45 ml/min/1.73sqm Normal [facility] ([place] Comment on above: Result Comment: GFR Population [...] A1C, CBC, ADIFF, ANEU, BMP, MG, LIPID ####[address] [address] .NEUABSon 05-09-2024 Neutrophil, Absolute 5.8 10 3/mcL Normal 2.3-8.1 [facility] ([place] Comment on above: Performed By: #### G FR, A1C, CBC, ADIFF, ANEU, BMP, MG, LIPID ####[place] [address] A1Con 05-09-2024 HbA1c (Bld) [Mass fraction] 9.1 % High 4.0-6.0 [facility] ([place] Comment on above: Performed By: #### G FR, A1C, CBC, ADIFF, ANEU, BMP, MG, LIPID ####[place] [id number] APTTon 05-09-2024 aPTT Coag (Bld) [Time] 52.3 s High 25.0-35.0 [facility] [place] Comment on above: Result Comment: For Heparin anticoagulation therapy, the recommendedtherapeutic range is: 54-77 seconds (APTT Correlationwith Anti-Xa therapeutic range of 0.3-0.7 units/ml).PLEASE REFERENCE THE PHARMACY PROTOCOL FOR DOSING. Heparin dose (APTT) Heparin IV Normal [facility] [place] aPTT Coag (Bld) [Time] 47.8 s High 25.0-35.0 [facility] [place] Comment on above: Result Comment: For Heparin anticoagulation therapy, the recommendedtherapeutic range is: 54-77 seconds (APTT Correlationwith Anti-Xa therapeutic range of 0.3-0.7 units/ml).PLEASE REFERENCE THE PHARMACY PROTOCOL FOR DOSING. Heparin dose (APTT) Unknown Normal [facility]) aPTT Coag (Bld) [Time] 37.5 s High 25.0-35.0 [facility] ([place] Comment on above: Result Comment: Spec imen hemolyzed. Results may be affected.For Heparin anticoagulation therapy, the recommendedtherapeutic range is: 54-77 seconds (APTT Correlationwith Anti-Xa therapeutic range of 0.3-0.7 units/ml).PLEASE REFERENCE THE PHARMACY PROTOCOL FOR DOSING. Heparin dose (APTT) Heparin IV Normal [facility]) aPTT Coag (Bld) [Time] 42.2 s High 25.0-35.0 [facility]) Comment on above: Result Comment: For Heparin anticoagulation therapy, the recommendedtherapeutic range is: 54-77 seconds (APTT Correlationwith Anti-Xa therapeutic range of 0.3-0.7 units/ml).PLEASE REFERENCE THE PHARMACY PROTOCOL FOR DOSING. Heparin dose (APTT) Heparin IV Normal [facility]) BMPon 05-09-2024 BUN/Creatinine Ratio 22.6 ratio High 10.0-22.0 [facility] [place] Comment on above: Performed By: #### G FR, A1C, CBC, ADIFF, ANEU, BMP, MG, LIPID ####[address] [address] Calcium [Mass/Vol] 8.5 mg/dL Low 8.7-10.4 On license of [facility] ([place] Comment on above: Performed By: #### G FR, A1C, CBC, ADIFF, ANEU, BMP, MG, LIPID ####[address] [address] Chloride [Moles/Vol] 105 mmol/L Normal 98-110 [facility] [place] Comment on above: Performed By: #### G FR, A1C, CBC, ADIFF, ANEU, BMP, MG, LIPID ####[address] [address] CO2 [Moles/Vol] 26 mmol/L Normal 22-32 [facility] [place] Comment on above: Performed By: #### G FR, A1C, CBC, ADIFF, ANEU, BMP, MG, LIPID ####[address] [address] Creatinine [Mass/Vol] 1.95 mg/dL High 0.60-1.40 [facility] ([place] Comment on above: Performed By: #### G FR, A1C, CBC, ADIFF, ANEU, BMP, MG, LIPID ####[address] [address] Electrolyte Balance 9.0 mEq/L Normal 4.0-15.0 [facility] ([place] Comment on above: Performed By: #### G FR, A1C, CBC, ADIFF, ANEU, BMP, MG, LIPID ####[place] [id number] Glucose [Mass/Vol] 66 mg/dL Low 70-110 On license of [facility] ([place] Comment on above: Performed By: #### G FR, A1C, CBC, ADIFF, ANEU, BMP, MG, LIPID ####[address] [address] Potassium [Moles/Vol] 3.4 mmol/L Low 3.5-5.0 [facility] [place] Comment on above: Performed By: #### G FR, A1C, CBC, ADIFF, ANEU, BMP, MG, LIPID ####[address] [address] Sodium [Moles/Vol] 140 mmol/L Normal 136-145 On license of [facility] ([place] Comment on above: Performed By: #### G FR, A1C, CBC, ADIFF, ANEU, BMP, MG, LIPID ####[address] [address] Urea nitrogen [Mass/Vol] 44.0 mg/dL High 8.0-22.0 [facility] [place] Comment on above: Performed By: #### G FR, A1C, CBC, ADIFF, ANEU, BMP, MG, LIPID ####[place] [address] CBCon 05-09-2024 Erythrocyte distribution width (RBC) [Ratio] 19.5 % High 11.5-15.5 [facility] [place] Comment on above: Performed By: #### G FR, A1C, CBC, ADIFF, ANEU, BMP, MG, LIPID ####[place] [address] Hematocrit (Bld) [Volume fraction] 29.4 % Low 40.0-52.0 [facility] [place] Comment on above: Performed By: #### G FR, A1C, CBC, ADIFF, ANEU, BMP, MG, LIPID ####[place] [address] Hgb 9.7 G/dL Low 13.0-17.5 [facility] [place] Comment on above: Performed By: #### G FR, A1C, CBC, ADIFF, ANEU, BMP, MG, LIPID ####[place] [address] MCH (RBC) [Entitic mass] 27.0 pg Normal 27.0-33.0 [facility] [place] Comment on above: Performed By: #### G FR, A1C, CBC, ADIFF, ANEU, BMP, MG, LIPID ####[place] [address] MCHC 33.1 G/dL Normal 32.0-36.0 [facility] ([place] Comment on above: Performed By: #### G FR, A1C, CBC, ADIFF, ANEU, BMP, MG, LIPID ####[place] [address] MCV (RBC) [Entitic vol] 81.8 fL Normal 81.0-100.0 [facility] [place] Comment on above: Performed By: #### G FR, A1C, CBC, ADIFF, ANEU, BMP, MG, LIPID ####[place] [address] Platelet 161 10 3/mcL Normal 150-450 [facility] ([place] Comment on above: Performed By: #### G FR, A1C, CBC, ADIFF, ANEU, BMP, MG, LIPID ####[place] [id number] [address] [place] [id number] Platelet mean volume (Bld) [Entitic vol] 7.5 fL Normal 6.4-10.5 [facility] [place] Comment on above: Performed By: #### G FR, A1C, CBC, ADIFF, ANEU, BMP, MG, LIPID ####[address] [address] RBC 3.59 10 6/mcL Low 4.50-6.00 [facility] ([place] Comment on above: Performed By: #### G FR, A1C, CBC, ADIFF, ANEU, BMP, MG, LIPID ####[address] [address] WBC 8.2 10 3/mcL Normal 4.5-10.8 [facility] [place] Comment on above: Performed By: #### G FR, A1C, CBC, ADIFF, ANEU, BMP, MG, LIPID ####[address] [address] LABORATORYOrdered By: Aleksey Barajas on 05-09-2024 aPTT [...] 131 mg/dL Normal 50 - 199 mg/dL AH ADM SS Comment on above: Interpretive Data: C holesterol Reference Interval: Less than 200 Desirable 200-239 Borderline high risk 240 and above High risk Cholesterol in HDL [Mass/Vol] 31 mg/dL Low 40 - 59 mg/dL AH ADM SS Cholesterol in LDL [Mass/Vol] 66 mg/dL Normal 0 - 129 mg/dL AH ADM SS Triglyceride [Mass/Vol] 170 mg/dL High 3 - 149 mg/dL ADM SS LABORATORYOrdered By: SYSTEM SYSTEM on 05-09-2024 HbA1c (Bld) [Mass fraction] 9.1 % High 4.0 - 6.0 % AH Auto Chem SS LIPIDon 05-09-2024 Cholesterol [Mass/Vol] 131 mg/dL Normal 50-199 [facility] ([place] Comment on above: Result Comment: Chol esterol Reference Interval:Less than 200 [id number] Borderline high [id number] and above High risk Performed By: #### G FR, A1C, CBC, ADIFF, ANEU, BMP, MG, LIPID ####[address] [address] Cholesterol in HDL [Mass/Vol] 31 mg/dL Low 40-59 [facility] ([place] Comment on above: Performed By: #### G FR, A1C, CBC, ADIFF, ANEU, BMP, MG, LIPID ####[address] [address] Cholesterol in LDL [Mass/Vol] 66 mg/dL Normal 0-129 [facility] ([place] Comment on above: Performed By: #### G FR, A1C, CBC, ADIFF, ANEU, BMP, MG, LIPID ####[address] [address] Triglyceride [Mass/Vol] 170 mg/dL High 3-149 [facility] ([place] Comment on above: Performed By: #### G FR, A1C, CBC, ADIFF, ANEU, BMP, MG, LIPID ####[address] [address] MGon 05-09-2024 Magnesium [Mass/Vol] 1.9 mg/dL Normal 1.6-2.4 [facility] ([place] Comment on above: Performed By: #### G FR, A1C, CBC, ADIFF, ANEU, BMP, MG, LIPID ####[address] [address] NM MYOCARDIAL SPECT STRESS/R ESTon 05-09-2024 NM MYOCARDIAL SPECT STRESS/REST Normal [facility] ([place] .Auto Diffon 05-08-2024 Basophil, Absolute 0.0 10 3/mcL Normal 0.0-0.3 [facility] ([place] Comment on above: Performed By: #### T ROPHS, ANEU, CMP, GFR, MG, TSH, CAION, ADIFF, CBC ####[address] [address] Basophils/100 WBC (Bld) 0.6 % Normal 0.0-2.5 [facility] ([place] Comment on above: Performed By: #### T ROPHS, ANEU, CMP, GFR, MG, TSH, CAION, ADIFF, CBC ####[address] [address] Eosinophil, Absolute 0.1 10 3/mcL Normal 0.0-0.7 [facility] ([place]) Comment on above: Performed By: #### T ROPHS, ANEU, CMP, GFR, MG, TSH, CAION, ADIFF, CBC ####[address] [address] Eosinophils/100 WBC (Bld) 0.6 % Normal 0.0-6.0 [facility] ([place]) Comment on above: Performed By: #### T ROPHS, ANEU, CMP, GFR, MG, TSH, CAION, ADIFF, CBC ####[address] [address] Lymphocyte, Absolute 1.0 10 3/mcL Normal 0.9-4.3 [facility] [place] ([place]) Comment on above: Performed By: #### T ROPHS, ANEU, CMP, GFR, MG, TSH, CAION, ADIFF, CBC ####[address] [address] Lymphocytes/100 WBC (Bld) 11.8 % Low 20.0-40.0 [facility] ([place]) Comment on above: Performed By: #### T ROPHS, ANEU, CMP, GFR, MG, TSH, CAION, ADIFF, CBC ####[address] [address] Monocyte, Absolute 0.5 10 3/mcL Normal 0.1-1.4 [facility] ([place]) Comment on above: Performed By: #### T ROPHS, ANEU, CMP, GFR, MG, TSH, CAION, ADIFF, CBC ####[address] [address] Monocytes/100 WBC (Bld) 6.4 % Normal 2.0-13.0 [facility] ([place]) Comment on above: Performed By: #### T ROPHS, ANEU, CMP, GFR, MG, TSH, CAION, ADIFF, CBC ####[address] [address] Neutrophils/100 WBC (Bld) 80.6 % High 50.0-75.0 [facility] ([place]) Comment on above: Performed By: #### T ROPHS, ANEU, CMP, GFR, MG, TSH, CAION, ADIFF, CBC ####[address] [address] .GFRon 05-08-2024 GFR Non- 34 ml/min/1.73sqm Normal [facility] ([place]) Comment on above: Result Comment: GFR [...] CMP, GFR, MG, TSH, CAION, ADIFF, CBC ####[address] [address] GFR 42 ml/min/1.73sqm Normal [facility] ([place]) Comment on above: Result Comment: GFR [...] mL/min/1.73 square meters Performed By: #### T TOMHS, ANEU, CMP, GFR, MG, TSH, CAION, ADIFF, CBC ####[place] [address] .NEUABSon 05-08-2024 Neutrophil, Absolute 6.5 10 3/mcL Normal 2.3-8.1 [facility] [place] ([place]) Comment on above: Performed By: #### T MLAVIN, ANEU, CMP, GFR, MG, TSH, CAION, ADIFF, CBC ####[place] [address] APTTon 05-08-2024 aPTT Coag (Bld) [Time] 36.3 s High 25.0-35.0 [facility] [place] ([place]) Comment on above: Result Comment: For Heparin anticoagulation therapy, the recommendedtherapeutic range is: 54-77 seconds (APTT Correlationwith Anti-Xa therapeutic range of 0.3-0.7 units/ml).PLEASE REFERENCE THE PHARMACY PROTOCOL FOR DOSING. Performed By: #### P RO ####[place] [address] Heparin dose (APTT) Heparin IV Normal [facility] ([place]) Comment on above: Performed By: #### P RO ####[place] [address] CAIONon 05-08-2024 Calcium Ionized 1.17 mmol/L Normal 1.12-1.32 [facility] ([place] Comment on above: Performed By: #### T MALVIN, ANEU, CMP, GFR, MG, TSH, CAION, ADIFF, CBC ####[place] [id number] CBCon 05-08-2024 Erythrocyte distribution width (RBC) [Ratio] 19.4 % High 11.5-15.5 [facility] ([place] Comment on above: Performed By: #### T ROPHS, ANEU, CMP, GFR, MG, TSH, CAION, ADIFF, CBC ####[place] [address] Hematocrit (Bld) [Volume fraction] 30.8 % Low 40.0-52.0 [facility] [place] Comment on above: Performed By: #### T ROPHS, ANEU, CMP, GFR, MG, TSH, CAION, ADIFF, CBC ####[place] [address] Hgb 10.3 G/dL Low 13.0-17.5 [facility] ([place] Comment on above: Performed By: #### T ROPHS, ANEU, CMP, GFR, MG, TSH, CAION, ADIFF, CBC ####[place] [address] MCH (RBC) [Entitic mass] 27.6 pg Normal 27.0-33.0 [facility] [place] Comment on above: Performed By: #### T ROPHS, ANEU, CMP, GFR, MG, TSH, CAION, ADIFF, CBC ####[place] [address] MCHC 33.6 G/dL Normal 32.0-36.0 [facility] [place] Comment on above: Performed By: #### T ROPHS, ANEU, CMP, GFR, MG, TSH, CAION, ADIFF, CBC ####[place] [address] MCV (RBC) [Entitic vol] 82.1 fL Normal 81.0-100.0 [facility] ([place]) Comment on above: Performed By: #### T ROPHS, ANEU, CMP, GFR, MG, TSH, CAION, ADIFF, CBC ####[place] [address] Platelet 198 10 3/mcL Normal 150-450 [facility] ([place] Comment on above: Performed By: #### T ROPHS, ANEU, CMP, GFR, MG, TSH, CAION, ADIFF, CBC ####[place] [address] Platelet mean volume (Bld) [Entitic vol] 7.6 fL Normal 6.4-10.5 [facility] [place] Comment on above: Performed By: #### T ROPHS, ANEU, CMP, GFR, MG, TSH, CAION, ADIFF, CBC ####[place] [address] RBC 3.75 10 6/mcL Low 4.50-6.00 [facility] [place] Comment on above: Performed By: #### T ROPHS, ANEU, CMP, GFR, MG, TSH, CAION, ADIFF, CBC ####[place] [address] WBC 8.1 10 3/mcL Normal 4.5-10.8 [facility]) Comment on above: Performed By: #### T ROPHS, ANEU, CMP, GFR, MG, TSH, CAION, ADIFF, CBC ####[place] [address] CMPon 05-08-2024 Albumin Level 1.5 G/dL Low 3.2-4.8 [facility]) Comment on above: Performed By: #### T ROPHS, ANEU, CMP, GFR, MG, TSH, CAION, ADIFF, CBC ####[place] [address] Albumin/Globulin [Mass ratio] 0.3 {ratio} Low 0.9-1.6 [facility]) Comment on above: Performed By: #### T ROPHS, ANEU, CMP, GFR, MG, TSH, CAION, ADIFF, CBC ####[place] [address] ALP [Catalytic activity/Vol] 476 U/L High 38-126 [facility] ([place] Comment on above: Performed By: #### T ROPHS, ANEU, CMP, GFR, MG, TSH, CAION, ADIFF, CBC ####[address] [address] ALT [Catalytic activity/Vol] 14 U/L Normal 12-55 [facility] [place] Comment on above: Performed By: #### T ROPHS, ANEU, CMP, GFR, MG, TSH, CAION, ADIFF, CBC ####[address] [address] AST [Catalytic activity/Vol] 15 U/L Normal 8-34 [facility] [place] Comment on above: Performed By: #### T ROPHS, ANEU, CMP, GFR, MG, TSH, CAION, ADIFF, CBC ####[place] [id number] Bili Total 0.40 mg/dL Normal 0.20-1.20 [facility] ([place] Comment on above: Result Comment: Use of this assay is not recommended for patients undergoing treatment with eltrombopag due to the potential for falsely elevated results. Performed By: #### T ROPHS, ANEU, CMP, GFR, MG, TSH, CAION, ADIFF, CBC ####[place] [address] BUN/Creatinine Ratio 25.0 ratio High 10.0-22.0 [facility] ([place] Comment on above: Performed By: #### T ROPHS, ANEU, CMP, GFR, MG, TSH, CAION, ADIFF, CBC ####[address] [address] Calcium [Mass/Vol] 8.3 mg/dL Low 8.7-10.4 On license of [facility] ([place]) Comment on above: Performed By: #### T ROPHS, ANEU, CMP, GFR, MG, TSH, CAION, ADIFF, CBC ####[place] [id number] Chloride [Moles/Vol] 105 mmol/L Normal 98-110 [facility] ([place] Comment on above: Performed By: #### T ROPHS, ANEU, CMP, GFR, MG, TSH, CAION, ADIFF, CBC ####[place] [address] CO2 [Moles/Vol] 24 mmol/L Normal 22-32 [facility] ([place] Comment on above: Performed By: #### T ROPHS, ANEU, CMP, GFR, MG, TSH, CAION, ADIFF, CBC ####[address] [address] Creatinine [Mass/Vol] 2.08 mg/dL High 0.60-1.40 [facility] ([place]) Comment on above: Performed By: #### T ROPHS, ANEU, CMP, GFR, MG, TSH, CAION, ADIFF, CBC ####[address] [address] Electrolyte Balance 11.0 mEq/L Normal 4.0-15.0 [facility] ([place] Comment on above: Performed By: #### T TOMHS, ANEU, CMP, GFR, MG, TSH, CAION, ADIFF, CBC ####[address] [address] Globulin 5.5 G/dL High 1.5-3.8 [facility] [place] Comment on above: Performed By: #### T MALVIN, ANEU, CMP, GFR, MG, TSH, CAION, ADIFF, CBC ####[address] [address] Glucose [Mass/Vol] 181 mg/dL High 70-110 On license of [facility] ([place]) Comment on above: Performed By: #### T ROPHS, ANEU, CMP, GFR, MG, TSH, CAION, ADIFF, CBC ####[address] [address] Potassium [Moles/Vol] 3.5 mmol/L Normal 3.5-5.0 [facility] ([place] Comment on above: Performed By: #### T TOMHS, ANEU, CMP, GFR, MG, TSH, CAION, ADIFF, CBC ####[address] [address] Sodium [Moles/Vol] 140 mmol/L Normal 136-145 On license of [facility] ([place]) Comment on above: Performed By: #### T ROPHS, ANEU, CMP, GFR, MG, TSH, CAION, ADIFF, CBC ####[place] [id number] [place] [address] Total Protein 7.0 G/dL Normal 5.7-8.2 [facility] ([place] Comment on above: Result Comment: No te - New Reference Range in effect 20 Performed By: #### T ROPHS, ANEU, CMP, GFR, MG, TSH, CAION, ADIFF, CBC ####[place] [id number] [place] [address] Urea nitrogen [Mass/Vol] 52.0 mg/dL High 8.0-22.0 [facility] ([place] Comment on above: Performed By: #### T ROPHS, ANEU, CMP, GFR, MG, TSH, CAION, ADIFF, CBC ####[place] [id number] [place] [address] LABORATORYOrdered By: Samra Cortes on 05-08-2024 PT Coag (PPP) [Time] 17.6 s High 9.0 - 1 4.4 seconds [facility] Comment on above: Interpretive Data: E ffective 06/02/08, Protime results may be affected by some antibiotics (i.e. Ciprofloxacin, Azithromycin, Bactrim) which may potentiate the action of oral anticoagulants, with further increases in Protime/INR. PT International Ratio 1.5 ratio Invalid Interpretation Code [facility] Comment on above: Interpretive Data: Simon briones [employer] (CHEST, 1991, 102:[id number]) recommended therapeutic range for oral anticoagulant therapy is: LOW RISK: Prophylaxis of venous thrombosis INR: 2.0-3.0 Treatment of pulmonary embolism 2.0-3.0 Prevention of systemic embolism 2.0-3.0 HIGH RISK: Mechanical prosthetic valves 2.5-3.5 LABORATORYOrdered By: SYSTEM SYSTEM on 05-08-2024 Troponin I.cardiac DL <= 0.01 ng/mL [Mass/Vol] 15 ng/L Normal 0 - 54 ng/L [facility] Comment on above: Interpretive Data: High Sensitive Troponin I Reference Ranges: Female: 0-34 ng/L Male: 0-54 ng/L Testing performed on [employer] IM analyzer using direct chemiluminescent technology. Troponin I.cardiac DL <= 0.01 ng/mL [Mass/Vol] 14 ng/L Normal 0 - 54 ng/L ADM Comment on above: Interpretive Data: High Sensitive Troponin I Reference Ranges: Female: 0-34 ng/L Male: 0-54 ng/L Testing performed on [employer] IM analyzer using direct chemiluminescent technology. Albumin BCP dye [Mass/Vol] 1.5 G/dL Low 3.2 - 4.8 G/dL ADM SS Albumin/Globulin [Mass ratio] 0.3 {ratio} Low 0.9 - 1.6 ratio ADM SS ALP [Catalytic activity/Vol] 476 U/L High 38 - 126 U/L ADM SS ALT No additional P-5'-P [Catalytic activity/Vol] 14 U/L Normal 12 - 55 U/L ADM SS AST [Catalytic activity/Vol] 15 U/L Normal 8 - 34 U/L ADM SS Bilirubin [Mass/Vol] 0.40 mg/dL Normal 0.20 - 1.20 mg/dL ADM Comment on above: Interpretive Data: U se of this assay is not recommended for patients undergoing treatment with eltrombopag due to the potential for falsely elevated results. Globulin 5.5 G/dL High 1.5 - 3.8 G/dL ADM SS Protein [Mass/Vol] 7.0 G/dL Normal 5.7 - 8.2 G/dL ADM Comment on above: Interpretive Data: * *Note - New Reference Range in effect 20 Troponin I.cardiac DL <= 0.01 ng/mL [Mass/Vol] 13 ng/L Normal 0 - 54 ng/L ADM Comment on above: Interpretive Data: High Sensitive Troponin I Reference Ranges: Female: 0-34 ng/L Male: 0-54 ng/L Testing performed on [employer] IM analyzer using direct chemiluminescent technology. TSH Qn 3.822 mIU/mL Normal 0.550 - 4.780 mIU/mL ADM Comment on above: Interpretive Data: * *Note - New Reference Range in effect 20 LABORATORYOrdered By: Missy wilson on 05-08-2024 Calcium Ionized 1.17 mmol/L Normal 1.12 - 1.32 mmol/L [facility] Main Rapid Comm SS MGon 05-08-2024 Magnesium [Mass/Vol] 1.6 mg/dL Normal 1.6-2.4 [facility] ([place] Comment on above: Performed By: #### T TOMHS, ANEU, CMP, GFR, MG, TSH, CAION, ADIFF, CBC ####[place] [address] PROon 05-08-2024 INR Coag (PPP) [Relative time] 1.5 {INR} Normal [facility] ([place] Comment on above: Result Comment: [employer] (CHEST, 1992, [id number])recommended therapeutic range for oral anticoagulant therapy is:LOW RISK: Prophylaxis of venous thrombosis INR: 2.0-3.0 Treatment of pulmonary embolism 2.0-3.0 Prevention of systemic embolism 2.0-3.0HIGH RISK: Mechanical prosthetic valves 2.5-3.5 Performed By: #### P RO ####[place] [address] PT Coag (PPP) [Time] 17.6 s High 9.0-14.4 [facility] ([place] Comment on above: Result Comment: Effe ctive 06/02/08, Protime results may be affected by some antibiotics (i.e. Ciprofloxacin, Azithromycin, Bactrim) which may potentiate the action of oral anticoagulants, with further increases in Protime/INR. Performed By: #### P RO ####[place] [address] TROPHSon 05-08-2024 High Sensitivity Troponin I 15 ng/L Normal 0-54 [facility] ([place] Comment on above: Result Comment: High Sensitive Troponin I Reference Ranges:Female: 0-34 ng/LMale: 0-54 ng/LTesting performed on [employer] analyzer using direct chemiluminescent technology. Performed By: #### T MALVIN ####[place] [address] High Sensitivity Troponin I 14 ng/L Normal 0-54 [facility] ([place] Comment on above: Result Comment: High Sensitive Troponin I Reference Ranges:Female: 0-34 ng/LMale: 0-54 ng/LTesting performed on [employer] IM analyzer using direct chemiluminescent technology. Performed By: #### T MALVIN ####[address] [address] High Sensitivity Troponin I 13 ng/L Normal 0-54 [facility] ([place] Comment on above: Result Comment: High Sensitive Troponin I Reference Ranges:Female: 0-34 ng/LMale: 0-54 ng/LTesting performed on [employer] IM analyzer using direct chemiluminescent technology. Performed By: #### T MALVIN, ANEU, CMP, GFR, MG, TSH, CAION, ADIFF, CBC ####[place] [address] TSHon 05-08-2024 TSH 3.822 mIU/mL Normal 0.550-4.78 0 [facility] ([place] Comment on above: Result Comment: No te - New Reference Range in effect 20 Performed By: #### T MALVIN, JOSÉ ANTONIO, CMP, GFR, MG, TSH, CAION, ADIFF, CBC ####[place] [address] XR CHEST 2 VIEWSon XR CHEST 2 VIEWS Normal [facility] ([place]) .Auto Diffon 05-07-2024 Basophil, Absolute 0.1 10 3/mcL Normal 0.0-0.2 [facility] ([place] Comment on above: Performed By: #### A DIFF, BMP, JOSÉ ANTONIO, MDW, GFR, CBC, TROPHS, MG ####[place] [address] [place], [place] [address] Basophils/100 WBC (Bld) 0.7 % Normal 0.0-2.5 [facility] ([place]) Comment on above: Performed By: #### A DIFF, BMP, ANEU, MDW, GFR, CBC, TROPHS, MG ####[place] [address] [place], [place] [address] Eosinophil, Absolute 0.0 10 3/mcL Normal 0.0-0.4 [facility] [place] ([place]) Comment on above: Performed By: #### A DIFF, BMP, ANEU, MDW, GFR, CBC, TROPHS, MG ####[place] [address] [place], [place] [address] Eosinophils/100 WBC (Bld) 0.0 % Normal 0.0-7.0 [facility] ([place] Comment on above: Performed By: #### A DIFF, BMP, ANEU, MDW, GFR, CBC, TROPHS, MG ####[place] [address] [place], [place] [address] Lymphocyte, Absolute 0.5 10 3/mcL Low 0.8-3.9 [facility] [place] ([place] Comment on above: Performed By: #### A DIFF, BMP, ANEU, MDW, GFR, CBC, TROPHS, MG ####[place] [address] [place], [place] [address] Lymphocytes/100 WBC (Bld) 4.8 % Low 10.0-50.0 [facility] ([place] Comment on above: Performed By: #### A DIFF, BMP, ANEU, MDW, GFR, CBC, TROPHS, MG ####[place] [address] [place], [place] [address] Monocyte, Absolute 0.8 10 3/mcL Normal 0.2-1.0 [facility] ([place] Comment on above: Performed By: #### A DIFF, BMP, ANEU, MDW, GFR, CBC, TROPHS, MG ####[place] [address] [place], [place] [address] Monocytes/100 WBC (Bld) 7.3 % Normal 1.7-13.0 [facility] ([place] Comment on above: Performed By: #### A DIFF, BMP, ANEU, MDW, GFR, CBC, TROPHS, MG ####[place] [address] [place], [place] [address] Neutrophils/100 WBC (Bld) 87.2 % High 37.0-80.0 [facility] ([place] Comment on above: Performed By: #### A DIFF, BMP, ANEU, MDW, GFR, CBC, TROPHS, MG ####[place] [address] [place], [place] [address] .GFRon 05-07-2024 GFR Non- 24 ml/min/1.73sqm Normal [facility] ([place] Comment on above: Result Comment: GFR Population [...] MDW, GFR, CBC, TROPHS, MG ####[place] [address] [place], [place] [address] GFR 29 ml/min/1.73sqm Normal [facility] ([place] Comment on above: Result Comment: GFR Population [...] ANEU, MDW, GFR, CBC, TROPHS, MG ####[place] [address] [place], [place] [address] .MDWon 05-07-2024 Monocyte Distribution Width 20.72 High 0.00-20.00 [facility] ([place] Comment on above: Result Comment: For adults in ED, MDW>20.0 may be associated with a higher risk of sepsis during the first 12hrs of hospital admission Performed By: #### A DIFF, BMP, ANEU, MDW, GFR, CBC, TROPHS, MG ####[place] [address] [place], [place] [address] .NEUABSon 05-07-2024 Neutrophil, Absolute 9.7 10 3/mcL High 2.9-6.2 [facility] [place] ([place]) Comment on above: Performed By: #### A DIFF, BMP, ANEU, MDW, GFR, CBC, TROPHS, MG ####[place] [address] [place], [place] [address] BMPon 05-07-2024 BUN/Creatinine Ratio 21 ratio Normal 7-27 [facility] ([place] Comment on above: Performed By: #### A DIFF, BMP, ANEU, MDW, GFR, CBC, TROPHS, MG ####[place] [address] [place], [place] [address] Calcium [Mass/Vol] 7.9 mg/dL Low 8.4-10.2 On license of [facility] ([place]) Comment on above: Performed By: #### A DIFF, BMP, ANEU, MDW, GFR, CBC, TROPHS, MG ####[place] [address] [place], [place] [address] Chloride [Moles/Vol] 99 mmol/L Normal 98-107 [facility] ([place] Comment on above: Performed By: #### A DIFF, BMP, ANEU, MDW, GFR, CBC, TROPHS, MG ####[place] [address] [place], [place] [address] CO2 [Moles/Vol] 24 mmol/L Normal 22-29 [facility] ([place] Comment on above: Performed By: #### A DIFF, BMP, ANEU, MDW, GFR, CBC, TROPHS, MG ####[address] [place], [place] [address] Creatinine [Mass/Vol] 2.81 mg/dL High 0.70-1.30 [facility] ([place] Comment on above: Performed By: #### A DIFF, BMP, ANEU, MDW, GFR, CBC, TROPHS, MG ####[place] [address] [place], [place] [address] Electrolyte Balance 12.0 mEq/L Normal 4.0-15.0 [facility] ([place] Comment on above: Performed By: #### A DIFF, BMP, ANEU, MDW, GFR, CBC, TROPHS, MG ####[place] [address] [place], [place] [address] Glucose [Mass/Vol] 338 mg/dL High 70-105 On license of [facility] ([place] Comment on above: Performed By: #### A DIFF, BMP, ANEU, MDW, GFR, CBC, TROPHS, MG ####[place] [address] [place], [place] [address] Potassium [Moles/Vol] 4.0 mmol/L Normal 3.5-5.1 [facility] ([place] Comment on above: Performed By: #### A DIFF, BMP, ANEU, MDW, GFR, CBC, TROPHS, MG ####[place] [address] [place], [place] [address] Sodium [Moles/Vol] 135 mmol/L Low 136-145 On license of [facility] ([place] Comment on above: Performed By: #### A DIFF, BMP, ANEU, MDW, GFR, CBC, TROPHS, MG ####[place] [address] [place], [place] [address] Urea nitrogen [Mass/Vol] 59 mg/dL High 7-18 [facility] [place] Comment on above: Performed By: #### A DIFF, BMP, ANEU, MDW, GFR, CBC, TROPHS, MG ####[place] [address] [place], [place] [address] CBCon 05-07-2024 Erythrocyte distribution width (RBC) [Ratio] 19.9 % High 11.5-14.5 [facility] ([place] Comment on above: Performed By: #### A DIFF, BMP, ANEU, MDW, GFR, CBC, TROPHS, MG ####[place] [address] [place], [place] [address] Hematocrit (Bld) [Volume fraction] 30.9 % Low 42.0-52.0 [facility] ([place] Comment on above: Performed By: #### A DIFF, BMP, ANEU, MDW, GFR, CBC, TROPHS, MG ####[place] [address] [place], [place] [address] Hgb 9.8 G/dL Low 14.0-18.0 [facility] ([place] Comment on above: Performed By: #### A DIFF, BMP, ANEU, MDW, GFR, CBC, TROPHS, MG ####[place] [address] [place], [place] [address] MCH (RBC) [Entitic mass] 26.6 pg Low 27.0-31.2 [facility] ([place] Comment on above: Performed By: #### A DIFF, BMP, ANEU, MDW, GFR, CBC, TROPHS, MG ####[place] [address] [place], [place] [address] MCHC 31.8 G/dL Normal 31.8-35.4 [facility] ([place] Comment on above: Performed By: #### A DIFF, BMP, ANEU, MDW, GFR, CBC, TROPHS, MG ####[place] [address] [place], [place] [address] MCV (RBC) [Entitic vol] 83.7 fL Normal 80.0-94.0 [facility] ([place] Comment on above: Performed By: #### A DIFF, BMP, ANEU, MDW, GFR, CBC, TROPHS, MG ####[place] [address] [place], [place] [address] Platelet 190 10 3/mcL Normal 130-400 [facility] ([place] Comment on above: Performed By: #### A DIFF, BMP, ANEU, MDW, GFR, CBC, TROPHS, MG ####[place] [address] [place], [place] [address] Platelet mean volume (Bld) [Entitic vol] 7.7 fL Normal 7.4-10.4 [facility] ([place] Comment on above: Performed By: #### A DIFF, BMP, ANEU, MDW, GFR, CBC, TROPHS, MG ####[place] [address] [place], [place] [address] RBC 3.69 10 6/mcL Low 4.04-6.13 [facility] ([place] Comment on above: Performed By: #### A DIFF, BMP, ANEU, MDW, GFR, CBC, TROPHS, MG ####[place] [address] [place], [place] [address] WBC 11.2 10 3/mcL High 4.6-10.8 [facility] ([place] Comment on above: Performed By: #### A DIFF, BMP, ANEU, MDW, GFR, CBC, TROPHS, MG ####[place] [address] [place], [place] [address] LABORATORYOrdered By: Nathalia Hayes on 05-07-2024 Glucose [Mass/Vol] 251 mg/dL High 70 - 110 mg/dL [facility] Work Phone: LABORATORYOrdered By: SYSTEM SYSTEM on 05-07-2024 Troponin I.cardiac DL <= 0.01 ng/mL [Mass/Vol] 11 ng/L Normal 0 - 76 ng/L AO ADM SS Comment on above: Interpretive Data: H igh Sensitive Troponin I Reference Ranges: Female: 0-51 ng/L Male: 0-76 ng/L Testing performed on [employer] using a homogeneous sandwich chemiluminescent immunoassay based on [employer] technology. Troponin I.cardiac DL <= 0.01 ng/mL [Mass/Vol] 13 ng/L Normal 0 - 76 ng/L AO ADM SS Comment on above: Interpretive Data: H igh Sensitive Troponin I Reference Ranges: Female: 0-51 ng/L Male: 0-76 ng/L Testing performed on [employer] EXL using a homogeneous sandwich chemiluminescent immunoassay based on [employer] technology. Basophil, Absolute 0.1 103/mcL Normal 0.0 [...] a homogeneous sandwich chemiluminescent immunoassay based on [employer] technology. Urea nitrogen [Mass/Vol] 59 mg/dL High 7 - 18 mg/dL AO ADM SS Urea nitrogen/Creatinine [Mass ratio] 21 ratio Normal 7 - 27 ratio AO ADM SS WBC (Bld) [#/Vol] 11.2 103/mcL High 4.6 - 10.8 10^3/mcL AO Workflow SS MGon 05-07-2024 Magnesium [Mass/Vol] 1.5 mg/dL Low 1.8-2.4 [facility] ([place] Comment on above: Performed By: #### A DIFF, BMP, ANEU, MDW, GFR, CBC, TROPHS, MG ###[address] [place], [place] [address] TROPHSon 05-07-2024 High Sensitivity Troponin I 11 ng/L Normal 0-76 [facility] ([place] Comment on above: Result Comment: High Sensitive Troponin I Reference Ranges:Female: 0-51 ng/LMale: 0-76 ng/LTesting performed on [employer] EXL using a homogeneous sandwich chemiluminescent immunoassay based on [employer] technology. Performed By: #### Simon COOMBS ####[place] [address] [place], [place] [address] High Sensitivity Troponin I 13 ng/L Normal 0-76 [facility] ([place] Comment on above: Result Comment: High Sensitive Troponin I Reference Ranges:Female: 0-51 ng/LMale: 0-76 ng/LTesting performed on [employer] EXL using a homogeneous sandwich chemiluminescent immunoassay based on [employer] technology. Performed By: #### Simon COOMBS ####[place] [address] [place], [place] [address] High Sensitivity Troponin I 13 ng/L Normal 0-76 [facility] ([place] Comment on above: Result Comment: High Sensitive Troponin I Reference Ranges:Female: 0-51 ng/LMale: 0-76 ng/LTesting performed on [employer] using a homogeneous sandwich chemiluminescent immunoassay based on [employer] technology. Performed By: #### A DIFF, BMP, ANEU, MDW, GFR, CBC, TROPHS, MG ####[id number] [place], [place] [address] XR CHEST 1 VIEWon 05-07-2024 XR CHEST 1 VIEW Normal [facility] ([place]) .Auto Diffon 05-06-2024 Basophil, Absolute 0.1 10 3/mcL Normal 0.0-0.3 [facility] ([place]) Comment on above: Performed By: #### B MP, GFR, ADIFF, ANEU, CBC ####[address] [address] Basophils/100 WBC (Bld) 0.9 % Normal 0.0-2.5 [facility] ([place]) Comment on above: Performed By: #### B MP, GFR, ADIFF, ANEU, CBC ####[address] [address] Eosinophil, Absolute 0.2 10 3/mcL Normal 0.0-0.7 [facility] ([place]) Comment on above: Performed By: #### B MP, GFR, ADIFF, ANEU, CBC ####[address] [address] Eosinophils/100 WBC (Bld) 1.8 % Normal 0.0-6.0 [facility] ([place]) Comment on above: Performed By: #### B MP, GFR, ADIFF, ANEU, CBC ####[address] [address] Lymphocyte, Absolute 1.6 10 3/mcL Normal 0.9-4.3 [facility] ([place]) Comment on above: Performed By: #### B MP, GFR, ADIFF, ANEU, CBC ####[address] [address] Lymphocytes/100 WBC (Bld) 15.9 % Low 20.0-40.0 [facility] ([place]) Comment on above: Performed By: #### B MP, GFR, ADIFF, ANEU, CBC ####[address] [address] Monocyte, Absolute 1.0 10 3/mcL Normal 0.1-1.4 [facility] ([place]) Comment on above: Performed By: #### B MP, GFR, ADIFF, ANEU, CBC ####[address] [address] Monocytes/100 WBC (Bld) 10.4 % Normal 2.0-13.0 [facility] ([place]) Comment on above: Performed By: #### B MP, GFR, ADIFF, ANEU, CBC ####[address] [address] Neutrophils/100 WBC (Bld) 71.0 % Normal 50.0-75.0 [facility] ([place] Comment on above: Performed By: #### B MP, GFR, ADIFF, ANEU, CBC ####[address] [address] .GFRon 05-06-2024 GFR 35 ml/min/1.73sqm Normal [facility] ([place] Comment on above: Result Comment: GFR Population [...] #### B MP, GFR, ADIFF, ANEU, CBC ####[address] [address] GFR Non- 29 ml/min/1.73sqm Normal [facility] ([place] Comment on above: Result Comment: GFR Population [...] #### B MP, GFR, ADIFF, ANEU, CBC ####[address] [address] .NEUABSon 05-06-2024 Neutrophil, Absolute 7.0 10 3/mcL Normal 2.3-8.1 [facility] ([place]) Comment on above: Performed By: #### B MP, GFR, ADIFF, ANEU, CBC ####[address] [address] BMPon 05-06-2024 BUN/Creatinine Ratio 21.1 ratio Normal 10.0-22.0 [facility] ([place] Comment on above: Performed By: #### B MP, GFR, ADIFF, ANEU, CBC ####[address] [address] Calcium [Mass/Vol] 7.6 mg/dL Low 8.7-10.4 On license of [facility] ([place]) Comment on above: Performed By: #### B MP, GFR, ADIFF, ANEU, CBC ####[address] [address] Chloride [Moles/Vol] 106 mmol/L Normal 98-110 [facility] ([place] Comment on above: Performed By: #### B MP, GFR, ADIFF, ANEU, CBC ####[address] [address] CO2 [Moles/Vol] 20 mmol/L Low 22-32 [facility] ([place] Comment on above: Performed By: #### B MP, GFR, ADIFF, ANEU, CBC ####[place] [address] Creatinine [Mass/Vol] 2.42 mg/dL High 0.60-1.40 [facility] ([place]) Comment on above: Performed By: #### B MP, GFR, ADIFF, ANEU, CBC ####[place] [address] Electrolyte Balance 11.0 mEq/L Normal 4.0-15.0 [facility] ([place]) Comment on above: Performed By: #### B MP, GFR, ADIFF, ANEU, CBC ####[place] [address] Glucose [Mass/Vol] 203 mg/dL High 70-110 On license of [facility] ([place]) Comment on above: Performed By: #### B MP, GFR, ADIFF, ANEU, CBC ####[place] [address] Potassium [Moles/Vol] 4.1 mmol/L Normal 3.5-5.0 [facility] ([place] Comment on above: Performed By: #### B MP, GFR, ADIFF, ANEU, CBC ####[place] [address] Sodium [Moles/Vol] 137 mmol/L Normal 136-145 On license of [facility] ([place]) Comment on above: Performed By: #### B MP, GFR, ADIFF, ANEU, CBC ####[place] [address] Urea nitrogen [Mass/Vol] 51.0 mg/dL High 8.0-22.0 [facility] ([place] Comment on above: Performed By: #### B MP, GFR, ADIFF, ANEU, CBC ####[place] [address] CBCon 05-06-2024 Erythrocyte distribution width (RBC) [Ratio] 19.5 % High 11.5-15.5 [facility] ([place] Comment on above: Performed By: #### B MP, GFR, ADIFF, ANEU, CBC ####[place] [address] Hematocrit (Bld) [Volume fraction] 28.8 % Low 40.0-52.0 [facility] ([place] Comment on above: Performed By: #### B MP, GFR, ADIFF, ANEU, CBC ####[place] [address] Hgb 9.5 G/dL Low 13.0-17.5 [facility] ([place] Comment on above: Performed By: #### B MP, GFR, ADIFF, ANEU, CBC ####[place] [address] MCH (RBC) [Entitic mass] 27.3 pg Normal 27.0-33.0 [facility] ([place] Comment on above: Performed By: #### B MP, GFR, ADIFF, ANEU, CBC ####[place] [address] MCHC 32.9 G/dL Normal 32.0-36.0 [facility] ([place] Comment on above: Performed By: #### B MP, GFR, ADIFF, ANEU, CBC ####[place] [address] MCV (RBC) [Entitic vol] 82.9 fL Normal 81.0-100.0 [facility] ([place] Comment on above: Performed By: #### B MP, GFR, ADIFF, ANEU, CBC ####[place] [address] Platelet 189 10 3/mcL Normal 150-450 [facility] ([place] Comment on above: Performed By: #### B MP, GFR, ADIFF, ANEU, CBC ####[place] [address] Platelet mean volume (Bld) [Entitic vol] 7.7 fL Normal 6.4-10.5 [facility] ([place] Comment on above: Performed By: #### B MP, GFR, ADIFF, ANEU, CBC ####[place] [address] RBC 3.48 10 6/mcL Low 4.50-6.00 [facility] ([place] Comment on above: Performed By: #### B MP, GFR, ADIFF, ANEU, CBC ####[facility] [place] [address] WBC 9.9 10 3/mcL Normal 4.5-10.8 [facility] ([place] Comment on above: Performed By: #### B MP, GFR, ADIFF, ANEU, CBC ####[facility] [place] [address] LABORATORYOrdered By: Hua Kulkarni on 05-06-2024 Glucose [Mass/Vol] 53 mg/dL Low 70 - 110 mg/dL [facility] Work Phone: LABORATORYOrdered By: Richmond Valadez on 05-06-2024 Blood Glucose Testing Reason Routine (05/06/24 4:39 PM) [facility] Work Phone: Glucose [Mass/Vol] 116 mg/dL High 70 - 110 mg/dL [facility] Work Phone: LABORATORYOrdered By: Renny Martinez on 05-06-2024 Glucose [Mass/Vol] 138 mg/dL High 70 - 110 mg/dL [facility] Work Phone: LABORATORYOrdered By: Lakeisha Yañez on 05-06-2024 Blood Glucose Testing Reason Routine (05/06/24 7:54 AM) [facility] Work Phone: LABORATORYOrdered By: SYSTEM SYSTEM on 05-06-2024 Basophils (Bld) [#/Vol] 0.1 103/mcL Normal 0.0 - 0.3 10^3/mcL AH Workflow SS Basophils/100 WBC (Bld) 0.9 % Normal 0.0 - 2.5 % AH Workflow SS Calcium [Mass/Vol] 7.6 mg/dL Low 8.7 - 10. 4 mg/dL AH ADM SS Chloride [Moles/Vol] 106 mmol/L Normal 98 - 11 0 mEq/L AH ADM SS CO2 [Moles/Vol] 20 mmol/L Low 22 - 32 mEq/L AH ADM SS Creatinine [Mass/Vol] 2.42 mg/dL High 0.60 - 1.40 mg/dL AH ADM SS Electrolyte Balance 11.0 mEq/L Normal [...] [Vol rate/Area] 35 ml/min/1.73sqm Invalid Interpretation Code [employer] S Comment on above: Interpretive Data: [...] [Vol rate/Area] 29 ml/min/1.73sqm Invalid Interpretation Code [employer] Comment on above: Interpretive Data: [...] 28.8 % Low 40.0 - 52.0 % AH Workflow SS Hemoglobin (Bld) [Mass/Vol] 9.5 G/dL [...] 82.9 fL Normal 81.0 - 100.0 fL Workflow [...] mEq/L AH ADM SS RBC (Bld) [#/Vol] 3.48 106/mcL Low 4.50 - 6.00 10^6/mcL AH Workflow SS Sodium [Moles/Vol] 137 mmol/L Normal 136 - 145 mEq/L ADM SS Urea nitrogen [Mass/Vol] 51.0 mg/dL High 8.0 - 22.0 mg/dL ADM SS Urea nitrogen/Creatinine [Mass ratio] 21.1 ratio Normal 10.0 - 22.0 ratio AH ADM SS WBC (Bld) [#/Vol] 9.9 103/mcL Normal 4.5 - 10.8 10^3/mcL Workflow SS LABORATORYOrdered By: Elsy castellon on 05-05-2024 Blood Glucose Testing Reason Routine (05/05/24 9:30 PM) [facility] Work Phone: No Panel Informationon 05-05 Culture Wound Deep Panel Culture results pending. [facility] Work Phone: Culture Wound Deep Panel No growth to date [facility] Work Phone: GS Rare Gram Positive C occi Rare Gram Positive Rods [facility] Work Phone: .Auto Diffon 05-04-2024 Basophil, Absolute 0.1 10 3/mcL Normal 0.0-0.3 [facility] ([place] Comment on above: Performed By: #### C BC, BMP, ANEU, GFR, ADIFF ####[place] [id number] [place] [address] Basophils/100 WBC (Bld) 1.3 % Normal 0.0-2.5 [facility] ([place] Comment on above: Performed By: #### C BC, BMP, ANEU, GFR, ADIFF ####[facility] [place] [address] Eosinophil, Absolute 0.2 10 3/mcL Normal 0.0-0.7 [facility] ([place]) Comment on above: Performed By: #### C BC, BMP, ANEU, GFR, ADIFF ####[facility] [place] [address] Eosinophils/100 WBC (Bld) 2.1 % Normal 0.0-6.0 [facility] ([place] Comment on above: Performed By: #### C BC, BMP, ANEU, GFR, ADIFF ####[facility] [place] [address] Lymphocyte, Absolute 1.5 10 3/mcL Normal 0.9-4.3 [facility] ([place] Comment on above: Performed By: #### C BC, BMP, ANEU, GFR, ADIFF ####[address] [address] Lymphocytes/100 WBC (Bld) 18.9 % Low 20.0-40.0 [facility] [place] Comment on above: Performed By: #### C BC, BMP, ANEU, GFR, ADIFF ####[address] [address] Monocyte, Absolute 0.9 10 3/mcL Normal 0.1-1.4 [facility] ([place] Comment on above: Performed By: #### C BC, BMP, ANEU, GFR, ADIFF ####[address] [address] Monocytes/100 WBC (Bld) 11.7 % Normal 2.0-13.0 [facility] ([place] Comment on above: Performed By: #### C BC, BMP, ANEU, GFR, ADIFF ####[address] [address] Neutrophils/100 WBC (Bld) 66.0 % Normal 50.0-75.0 [facility] ([place] Comment on above: Performed By: #### C BC, BMP, ANEU, GFR, ADIFF ####[address] [address] .GFRon 05-04-2024 GFR 40 ml/min/1.73sqm Normal [facility] ([place] Comment on above: Result Comment: GFR Population [...] #### C BC, BMP, ANEU, GFR, ADIFF ####[address] [address] GFR Non- 33 ml/min/1.73sqm Normal [facility] ([place] Comment on above: Result Comment: GFR Population [...] #### C BC, BMP, ANEU, GFR, ADIFF ####[address] [address] .NEUABSon 05-04-2024 Neutrophil, Absolute 5.2 10 3/mcL Normal 2.3-8.1 [facility] ([place] Comment on above: Performed By: #### C BC, BMP, ANEU, GFR, ADIFF ####[address] [address] BMPon 05-04-2024 BUN/Creatinine Ratio 21.8 ratio Normal 10.0-22.0 [facility] ([place] Comment on above: Performed By: #### C BC, BMP, ANEU, GFR, ADIFF ####[address] [address] Calcium [Mass/Vol] 7.2 mg/dL Low 8.7-10.4 On license of [facility] ([place] Comment on above: Performed By: #### C BC, BMP, ANEU, GFR, ADIFF ####[address] [address] Chloride [Moles/Vol] 106 mmol/L Normal 98-110 [facility] ([place] Comment on above: Performed By: #### C BC, BMP, ANEU, GFR, ADIFF ####[address] [address] CO2 [Moles/Vol] 22 mmol/L Normal 22-32 [facility] ([place] Comment on above: Performed By: #### C BC, BMP, ANEU, GFR, ADIFF ####[address] [address] Creatinine [Mass/Vol] 2.16 mg/dL High 0.60-1.40 [facility] ([place] Comment on above: Performed By: #### C BC, BMP, ANEU, GFR, ADIFF ####[address] [address] Electrolyte Balance 8.0 mEq/L Normal 4.0-15.0 [facility] ([place] Comment on above: Performed By: #### C BC, BMP, ANEU, GFR, ADIFF ####[address] [address] Glucose [Mass/Vol] 255 mg/dL High 70-110 On license of [facility] ([place] Comment on above: Performed By: #### C BC, BMP, ANEU, GFR, ADIFF ####[place] [address] Potassium [Moles/Vol] 4.1 mmol/L Normal 3.5-5.0 [facility] ([place] Comment on above: Performed By: #### C BC, BMP, ANEU, GFR, ADIFF ####[address] [address] Sodium [Moles/Vol] 136 mmol/L Normal 136-145 On license of [facility] ([place] Comment on above: Performed By: #### C BC, BMP, ANEU, GFR, ADIFF ####[address] [address] Urea nitrogen [Mass/Vol] 47.0 mg/dL High 8.0-22.0 [facility] ([place] Comment on above: Performed By: #### C BC, BMP, ANEU, GFR, ADIFF ####[address] [address] CBCon 05-04-2024 Erythrocyte distribution width (RBC) [Ratio] 18.8 % High 11.5-15.5 [facility] ([place] Comment on above: Performed By: #### C BC, BMP, ANEU, GFR, ADIFF ####[place] [address] Hematocrit (Bld) [Volume fraction] 29.1 % Low 40.0-52.0 [facility] ([place] Comment on above: Performed By: #### C BC, BMP, ANEU, GFR, ADIFF ####[place] [address] Hgb 9.7 G/dL Low 13.0-17.5 [facility] ([place] Comment on above: Performed By: #### C BC, BMP, ANEU, GFR, ADIFF ####[place] [address] MCH (RBC) [Entitic mass] 27.4 pg Normal 27.0-33.0 [facility] ([place] Comment on above: Performed By: #### C BC, BMP, ANEU, GFR, ADIFF ####[place] [address] MCHC 33.2 G/dL Normal 32.0-36.0 [facility] ([place] Comment on above: Performed By: #### C BC, BMP, ANEU, GFR, ADIFF ####[place] [address] MCV (RBC) [Entitic vol] 82.5 fL Normal 81.0-100.0 [facility] ([place] Comment on above: Performed By: #### C BC, BMP, ANEU, GFR, ADIFF ####[place] [address] Platelet 295 10 3/mcL Normal 150-450 [facility] ([place] Comment on above: Performed By: #### C BC, BMP, ANEU, GFR, ADIFF ####[place] [address] Platelet mean volume (Bld) [Entitic vol] 7.4 fL Normal 6.4-10.5 [facility] ([place] Comment on above: Performed By: #### C BC, BMP, ANEU, GFR, ADIFF ####[place] [id number] [place] [address] RBC 3.53 10 6/mcL Low 4.50-6.00 [facility] ([place] Comment on above: Performed By: #### C BC, BMP, ANEU, GFR, ADIFF ####[place] [id number] [place] [address] WBC 7.9 10 3/mcL Normal 4.5-10.8 [facility] ([place] Comment on above: Performed By: #### C BC, BMP, ANEU, GFR, ADIFF ####[address] [address] LABORATORYOrdered By: SYSTEM SYSTEM on 05-04-2024 Basophils [...] 0.7 10^3/mcL Workflow SS Eosinophils/100 WBC (Bld) 2.1 % Normal 0.0 - 6.0 % Workflow SS Erythrocyte distribution width (RBC) [Ratio] 18.8 % High 11.5 - 15.5 % Workflow [...] [Vol rate/Area] 33 ml/min/1.73sqm Invalid Interpretation Code [employer] S Comment on above: Interpretive Data: GFR [...] 29.1 % Low 40.0 - 52.0 % Workflow SS Hemoglobin (Bld) [Mass/Vol] 9.7 G/dL Low 13.0 - 17.5 G/dL AH Workflow SS Lymphocytes (Bld) [#/Vol] 1.5 103/mcL Normal 0.9 - 4.3 10^3/mcL Workflow SS Lymphocytes/100 WBC (Bld) 18.9 % Low 20.0 - 40.0 % Workflow SS MCH (RBC) [Entitic mass] 27.4 pg Normal 27.0 - 33.0 pg AH Workflow SS MCHC 33.2 G/dL Normal 32.0 - 36.0 G/dL AH Workflow SS MCV (RBC) [Entitic vol] 82.5 fL Normal 81.0 - 100.0 fL AH [...] 136 mmol/L Normal 136 - 145 mEq/L AH ADM SS Urea nitrogen [Mass/Vol] 47.0 mg/dL High 8.0 - 22.0 mg/dL AH ADM SS Urea nitrogen/Creatinine [Mass ratio] 21.8 ratio Normal 10.0 - 22.0 ratio AH ADM SS WBC (Bld) [#/Vol] 7.9 103/mcL Normal 4.5 - 10.8 10^3/mcL AH Workflow SS .Auto Diffon 05-03-2024 Basophil, Absolute 0.1 10 3/mcL Normal 0.0-0.3 [facility] ([place] Comment on above: Performed By: #### A DIFF, MG, BMP, CBC, GFR, ANEU ####[facility] [place] [address] Basophils/100 WBC (Bld) 0.9 % Normal 0.0-2.5 [facility] ([place] Comment on above: Performed By: #### A DIFF, MG, BMP, CBC, GFR, ANEU ####[address] [address] Eosinophil, Absolute 0.1 10 3/mcL Normal 0.0-0.7 [facility] ([place] Comment on above: Performed By: #### A DIFF, MG, BMP, CBC, GFR, ANEU ####[address] [address] Eosinophils/100 WBC (Bld) 1.8 % Normal 0.0-6.0 [facility] ([place] Comment on above: Performed By: #### A DIFF, MG, BMP, CBC, GFR, ANEU ####[address] [address] Lymphocyte, Absolute 1.5 10 3/mcL Normal 0.9-4.3 [facility] ([place] Comment on above: Performed By: #### A DIFF, MG, BMP, CBC, GFR, ANEU ####[address] [address] Lymphocytes/100 WBC (Bld) 17.8 % Low 20.0-40.0 [facility] ([place]) Comment on above: Performed By: #### A DIFF, MG, BMP, CBC, GFR, ANEU ####[address] [address] Monocyte, Absolute 0.9 10 3/mcL Normal 0.1-1.4 [facility] ([place] Comment on above: Performed By: #### A DIFF, MG, BMP, CBC, GFR, ANEU ####[address] [address] Monocytes/100 WBC (Bld) 10.6 % Normal 2.0-13.0 [facility] ([place] Comment on above: Performed By: #### A DIFF, MG, BMP, CBC, GFR, ANEU ####[address] [address] Neutrophils/100 WBC (Bld) 68.9 % Normal 50.0-75.0 [facility] ([place] Comment on above: Performed By: #### A DIFF, MG, BMP, CBC, GFR, ANEU ####[address] [address] .GFRon 05-03-2024 GFR 44 ml/min/1.73sqm Normal [facility] ([place] Comment on above: Result Comment: GFR Population [...] A DIFF, MG, BMP, CBC, GFR, ANEU ####[place] [address] GFR Non- 37 ml/min/1.73sqm Normal [facility] ([place] Comment on above: Result Comment: GFR Population [...] A DIFF, MG, BMP, CBC, GFR, ANEU ####[address] [address] .NEUABSon 05-03-2024 Neutrophil, Absolute 5.8 10 3/mcL Normal 2.3-8.1 [facility] ([place] Comment on above: Performed By: #### A DIFF, MG, BMP, CBC, GFR, ANEU ####[address] [address] BMPon 05-03-2024 BUN/Creatinine Ratio 21.3 ratio Normal 10.0-22.0 [facility] ([place] Comment on above: Performed By: #### A DIFF, MG, BMP, CBC, GFR, ANEU ####[place] [address] Calcium [Mass/Vol] 7.9 mg/dL Low 8.7-10.4 On license of [facility] ([place] Comment on above: Performed By: #### A DIFF, MG, BMP, CBC, GFR, ANEU ####[place] [address] Chloride [Moles/Vol] 107 mmol/L Normal 98-110 [facility] ([place] Comment on above: Performed By: #### A DIFF, MG, BMP, CBC, GFR, ANEU ####[place] [address] CO2 [Moles/Vol] 23 mmol/L Normal 22-32 [facility] ([place] Comment on above: Performed By: #### A DIFF, MG, BMP, CBC, GFR, ANEU ####[place] [address] Creatinine [Mass/Vol] 1.97 mg/dL High 0.60-1.40 [facility] ([place] Comment on above: Performed By: #### A DIFF, MG, BMP, CBC, GFR, ANEU ####[place] [address] Electrolyte Balance 9.0 mEq/L Normal 4.0-15.0 [facility] ([place] Comment on above: Performed By: #### A DIFF, MG, BMP, CBC, GFR, ANEU ####[place] [address] Glucose [Mass/Vol] 185 mg/dL High 70-110 On license of [facility] ([place] Comment on above: Performed By: #### A DIFF, MG, BMP, CBC, GFR, ANEU ####[place] [address] Potassium [Moles/Vol] 4.0 mmol/L Normal 3.5-5.0 [facility] [place] Comment on above: Performed By: #### A DIFF, MG, BMP, CBC, GFR, ANEU ####[place] [address] Sodium [Moles/Vol] 139 mmol/L Normal 136-145 On license of [facility] ([place] Comment on above: Performed By: #### A DIFF, MG, BMP, CBC, GFR, ANEU ####[place] [address] Urea nitrogen [Mass/Vol] 42.0 mg/dL High 8.0-22.0 [facility] ([place] Comment on above: Performed By: #### A DIFF, MG, BMP, CBC, GFR, ANEU ####[place] [address] CBCon 05-03-2024 Erythrocyte distribution width (RBC) [Ratio] 18.2 % High 11.5-15.5 [facility] ([place] Comment on above: Performed By: #### A DIFF, MG, BMP, CBC, GFR, ANEU ####[place] [address] Hematocrit (Bld) [Volume fraction] 29.9 % Low 40.0-52.0 [facility] ([place] Comment on above: Performed By: #### A DIFF, MG, BMP, CBC, GFR, ANEU ####[place] [address] Hgb 10.1 G/dL Low 13.0-17.5 [facility] ([place] Comment on above: Performed By: #### A DIFF, MG, BMP, CBC, GFR, ANEU ####[place] [address] MCH (RBC) [Entitic mass] 27.5 pg Normal 27.0-33.0 [facility] ([place] Comment on above: Performed By: #### A DIFF, MG, BMP, CBC, GFR, ANEU ####[address] [address] MCHC 33.8 G/dL Normal 32.0-36.0 [facility] ([place] Comment on above: Performed By: #### A DIFF, MG, BMP, CBC, GFR, ANEU ####[place] [address] MCV (RBC) [Entitic vol] 81.2 fL Normal 81.0-100.0 [facility] ([place] Comment on above: Performed By: #### A DIFF, MG, BMP, CBC, GFR, ANEU ####[place] [address] Platelet 334 10 3/mcL Normal 150-450 [facility] ([place] Comment on above: Performed By: #### A DIFF, MG, BMP, CBC, GFR, ANEU ####[place] [address] Platelet mean volume (Bld) [Entitic vol] 7.8 fL Normal 6.4-10.5 [facility] ([place] Comment on above: Performed By: #### A DIFF, MG, BMP, CBC, GFR, ANEU ####[place] [address] RBC 3.68 10 6/mcL Low 4.50-6.00 [facility] ([place] Comment on above: Performed By: #### A DIFF, MG, BMP, CBC, GFR, ANEU ####[place] [address] WBC 8.5 10 3/mcL Normal 4.5-10.8 [facility] ([place] Comment on above: Performed By: #### A DIFF, MG, BMP, CBC, GFR, ANEU ####[place] [address] LABORATORYOrdered By: Samra Guillaume on 05-03-2024 Blood Glucose Interventions Administered agent to decrease blood sugar (05/03/24 12:10 PM) [facility] Work Phone: LABORATORYOrdered By: SYSTEM SYSTEM on 05-03-2024 Basophils (Bld) [#/Vol] 0.1 103/mcL Normal 0.0 - 0.3 10^3/mcL AH Workflow SS Basophils/100 WBC (Bld) 0.9 % Normal 0.0 - 2.5 % AH Workflow SS Calcium [Mass/Vol] 7.9 mg/dL Low 8.7 - 10. 4 mg/dL AH ADM SS Chloride [Moles/Vol] 107 mmol/L Normal 98 - 11 0 mEq/L AH ADM SS CO2 [Moles/Vol] 23 mmol/L Normal 22 - 32 mEq/L AH ADM SS Creatinine [Mass/Vol] 1.97 mg/dL High 0.60 - 1.40 mg/dL AH ADM SS Electrolyte Balance 9.0 mEq/L Normal 4.0 - 15 .0 mEq/L AH ADM SS Eosinophils (Bld) [#/Vol] 0.1 103/mcL Normal 0.0 - 0.7 10^3/mcL AH Workflow SS Eosinophils/100 WBC (Bld) 1.8 % Normal 0.0 - 6.0 % AH Workflow SS Erythrocyte distribution width (RBC) [Ratio] 18.2 % High 11.5 - 15.5 % AH Workflow SS GFR/1.73 sq M.predicted among blacks MDRD (S/P/Bld) [Vol rate/Area] 44 ml/min/1.73sqm Invalid Interpretation Code ADM SS Comment [...] AH ADM SS MCH (RBC) [Entitic mass] 27.5 [...] 139 mmol/L Normal 136 - 145 mEq/L ADM SS Urea nitrogen [Mass/Vol] 42.0 mg/dL High 8.0 - 22.0 mg/dL AH ADM SS Urea nitrogen/Creatinine [Mass ratio] 21.3 ratio Normal 10.0 - 22.0 ratio AH ADM SS WBC (Bld) [#/Vol] 8.5 103/mcL Normal 4.5 - 10.8 10^3/mcL Workflow SS MGon 05-03-2024 Magnesium [Mass/Vol] 1.8 mg/dL Normal 1.6-2.4 [facility] ([place] Comment on above: Performed By: #### A DIFF, MG, BMP, CBC, GFR, ANEU ####[address] [address] .Auto Diffon 05-02-2024 Basophil, Absolute 0.1 10 3/mcL Normal 0.0-0.3 [facility] ([place] Comment on above: Performed By: #### B MP, GFR, CBC, ADIFF, MG, ANEU ####[address] [address] Basophils/100 WBC (Bld) 0.6 % Normal 0.0-2.5 [facility] ([place] Comment on above: Performed By: #### B MP, GFR, CBC, ADIFF, MG, ANEU ####[address] [address] Eosinophil, Absolute 0.2 10 3/mcL Normal 0.0-0.7 [facility] ([place]) Comment on above: Performed By: #### B MP, GFR, CBC, ADIFF, MG, ANEU ####[address] [address] Eosinophils/100 WBC (Bld) 2.1 % Normal 0.0-6.0 [facility] ([place]) Comment on above: Performed By: #### B MP, GFR, CBC, ADIFF, MG, ANEU ####[address] [address] Lymphocyte, Absolute 1.3 10 3/mcL Normal 0.9-4.3 [facility] ([place]) Comment on above: Performed By: #### B MP, GFR, CBC, ADIFF, MG, ANEU ####[address] [address] Lymphocytes/100 WBC (Bld) 15.7 % Low 20.0-40.0 [facility] ([place]) Comment on above: Performed By: #### B MP, GFR, CBC, ADIFF, MG, ANEU ####[address] [address] Monocyte, Absolute 0.9 10 3/mcL Normal 0.1-1.4 [facility] ([place]) Comment on above: Performed By: #### B MP, GFR, CBC, ADIFF, MG, ANEU ####11 [address] [address] Monocytes/100 WBC (Bld) 10.4 % Normal 2.0-13.0 [facility] ([place]) Comment on above: Performed By: #### B MP, GFR, CBC, ADIFF, MG, ANEU ####[address] [address] Neutrophils/100 WBC (Bld) 71.2 % Normal 50.0-75.0 [facility] ([place]) Comment on above: Performed By: #### B MP, GFR, CBC, ADIFF, MG, ANEU ####[address] [address] .GFRon 05-02-2024 GFR 40 ml/min/1.73sqm Normal [facility] ([place]) Comment on above: Result Comment: GFR Population [...] B MP, GFR, CBC, ADIFF, MG, ANEU ####[place] [address] GFR Non- 33 ml/min/1.73sqm Normal [facility] ([place] Comment on above: Result Comment: GFR Population [...] B MP, GFR, CBC, ADIFF, MG, ANEU ####[place] [address] .NEUABSon 05-02-2024 Neutrophil, Absolute 6.1 10 3/mcL Normal 2.3-8.1 [facility] ([place]) Comment on above: Performed By: #### B MP, GFR, CBC, ADIFF, MG, ANEU ####[place] [address] BMPon 05-02-2024 BUN/Creatinine Ratio 19.2 ratio Normal 10.0-22.0 [facility] ([place]) Comment on above: Performed By: #### B MP, GFR, CBC, ADIFF, MG, ANEU ####[place] [address] Calcium [Mass/Vol] 7.8 mg/dL Low 8.7-10.4 On license of [facility] ([place]) Comment on above: Performed By: #### B MP, GFR, CBC, ADIFF, MG, ANEU ####[address] [address] Chloride [Moles/Vol] 106 mmol/L Normal 98-110 [facility] ([place] Comment on above: Performed By: #### B MP, GFR, CBC, ADIFF, MG, ANEU ####[address] [address] CO2 [Moles/Vol] 24 mmol/L Normal 22-32 [facility] ([place] Comment on above: Performed By: #### B MP, GFR, CBC, ADIFF, MG, ANEU ####[address] [address] Creatinine [Mass/Vol] 2.14 mg/dL High 0.60-1.40 [facility] ([place]) Comment on above: Performed By: #### B MP, GFR, CBC, ADIFF, MG, ANEU ####[place] [address] Electrolyte Balance 9.0 mEq/L Normal 4.0-15.0 [facility] ([place]) Comment on above: Performed By: #### B MP, GFR, CBC, ADIFF, MG, ANEU ####[address] [address] Glucose [Mass/Vol] 166 mg/dL High 70-110 On license of [facility] ([place] Comment on above: Performed By: #### B MP, GFR, CBC, ADIFF, MG, ANEU ####[address] [address] Potassium [Moles/Vol] 3.8 mmol/L Normal 3.5-5.0 [facility] ([place] Comment on above: Performed By: #### B MP, GFR, CBC, ADIFF, MG, ANEU ####[address] [address] Sodium [Moles/Vol] 139 mmol/L Normal 136-145 On license of [facility] ([place] Comment on above: Performed By: #### B MP, GFR, CBC, ADIFF, MG, ANEU ####[place] [address] Urea nitrogen [Mass/Vol] 41.0 mg/dL High 8.0-22.0 [facility] ([place] Comment on above: Performed By: #### B MP, GFR, CBC, ADIFF, MG, ANEU ####[place] [address] CBCon 05-02-2024 Erythrocyte distribution width (RBC) [Ratio] 18.3 % High 11.5-15.5 [facility] ([place] Comment on above: Performed By: #### B MP, GFR, CBC, ADIFF, MG, ANEU ####[place] [address] Hematocrit (Bld) [Volume fraction] 29.0 % Low 40.0-52.0 [facility] ([place] Comment on above: Performed By: #### B MP, GFR, CBC, ADIFF, MG, ANEU ####[place] [address] Hgb 9.6 G/dL Low 13.0-17.5 [facility] ([place] Comment on above: Performed By: #### B MP, GFR, CBC, ADIFF, MG, ANEU ####[place] [address] MCH (RBC) [Entitic mass] 27.2 pg Normal 27.0-33.0 [facility] ([place] Comment on above: Performed By: #### B MP, GFR, CBC, ADIFF, MG, ANEU ####[place] [address] MCHC 33.2 G/dL Normal 32.0-36.0 [facility] ([place] Comment on above: Performed By: #### B MP, GFR, CBC, ADIFF, MG, ANEU ####[place] [address] MCV (RBC) [Entitic vol] 81.9 fL Normal 81.0-100.0 [facility] ([place]) Comment on above: Performed By: #### B MP, GFR, CBC, ADIFF, MG, ANEU ####[place] [address] Platelet 383 10 3/mcL Normal 150-450 [facility] ([place] Comment on above: Performed By: #### B MP, GFR, CBC, ADIFF, MG, ANEU ####[place] [address] Platelet mean volume (Bld) [Entitic vol] 8.1 fL Normal 6.4-10.5 [facility] ([place] Comment on above: Performed By: #### B MP, GFR, CBC, ADIFF, MG, ANEU ####[place] [address] RBC 3.54 10 6/mcL Low 4.50-6.00 [facility] ([place] Comment on above: Performed By: #### B MP, GFR, CBC, ADIFF, MG, ANEU ####[place] [address] WBC 8.6 10 3/mcL Normal 4.5-10.8 [facility] ([place] Comment on above: Performed By: #### B MP, GFR, CBC, ADIFF, MG, ANEU ####[place] [address] LABORATORYOrdered By: SYSTEM SYSTEM on 05-02-2024 Magnesium [Mass/Vol] 1.4 mg/dL Low 1.6 - 2 .4 mg/dL ADM SS MGon 05-02-2024 Magnesium [Mass/Vol] 1.4 mg/dL Low 1.6-2.4 [facility] ([place] Comment on above: Performed By: #### B MP, GFR, CBC, ADIFF, MG, ANEU ####[place] [address] .Auto Diffon 05-01-2024 Basophil, Absolute 0.1 10 3/mcL Normal 0.0-0.3 [facility] ([place] Comment on above: Performed By: #### A ARBEN, GFR, CMP, ADIFF, CBC ####[address] [address] Basophils/100 WBC (Bld) 0.7 % Normal 0.0-2.5 [facility] ([place] Comment on above: Performed By: #### A ARBEN, GFR, CMP, ADIFF, CBC ####[address] [address] Eosinophil, Absolute 0.2 10 3/mcL Normal 0.0-0.7 [facility] ([place]) Comment on above: Performed By: #### A ARBEN, GFR, CMP, ADIFF, CBC ####[address] [address] Eosinophils/100 WBC (Bld) 2.1 % Normal 0.0-6.0 [facility] ([place] Comment on above: Performed By: #### A ARBEN, GFR, CMP, ADIFF, CBC ####[address] [address] Lymphocyte, Absolute 1.3 10 3/mcL Normal 0.9-4.3 [facility] ([place] Comment on above: Performed By: #### A ARBEN, GFR, CMP, ADIFF, CBC ####[address] [address] Lymphocytes/100 WBC (Bld) 15.9 % Low 20.0-40.0 [facility] ([place] Comment on above: Performed By: #### A ARBEN, GFR, CMP, ADIFF, CBC ####[address] [address] Monocyte, Absolute 1.0 10 3/mcL Normal 0.1-1.4 [facility] ([place] Comment on above: Performed By: #### A ARBEN, GFR, CMP, ADIFF, CBC ####[address] [address] Monocytes/100 WBC (Bld) 12.1 % Normal 2.0-13.0 [facility] ([place] Comment on above: Performed By: #### A ARBEN, GFR, CMP, ADIFF, CBC ####[address] [address] Neutrophils/100 WBC (Bld) 69.2 % Normal 50.0-75.0 [facility] ([place] Comment on above: Performed By: #### A ARBEN, GFR, CMP, ADIFF, CBC ####[place] [address] .GFRon 05-01-2024 GFR 39 ml/min/1.73sqm Normal [facility] ([place] Comment on above: Result Comment: GFR Population [...] #### A ARBEN, GFR, CMP, ADIFF, CBC ####[place] [address] GFR Non- 33 ml/min/1.73sqm Normal [facility] ([place] Comment on above: Result Comment: GFR Population [...] #### A ARBEN, GFR, CMP, ADIFF, CBC ####[place] [address] .NEUABSon 05-01-2024 Neutrophil, Absolute 5.5 10 3/mcL Normal 2.3-8.1 [facility] ([place] Comment on above: Performed By: #### A ARBEN, GFR, CMP, ADIFF, CBC ####[place] [address] CBCon 05-01-2024 Erythrocyte distribution width (RBC) [Ratio] 18.3 % High 11.5-15.5 [facility] ([place] Comment on above: Performed By: #### A ARBEN, GFR, CMP, ADIFF, CBC ####[place] [address] Hematocrit (Bld) [Volume fraction] 27.8 % Low 40.0-52.0 [facility] ([place] Comment on above: Performed By: #### A ARBEN, GFR, CMP, ADIFF, CBC ####[place] [address] Hgb 9.4 G/dL Low 13.0-17.5 [facility] [place] Comment on above: Performed By: #### A ARBEN, GFR, CMP, ADIFF, CBC ####[place] [address] MCH (RBC) [Entitic mass] 27.7 pg Normal 27.0-33.0 [facility] [place] Comment on above: Performed By: #### A ARBEN, GFR, CMP, ADIFF, CBC ####[place] [address] MCHC 33.9 G/dL Normal 32.0-36.0 [facility] [place] Comment on above: Performed By: #### A ARBEN, GFR, CMP, ADIFF, CBC ####[place] [address] MCV (RBC) [Entitic vol] 81.6 fL Normal 81.0-100.0 [facility] ([place]) Comment on above: Performed By: #### A ARBEN, GFR, CMP, ADIFF, CBC ####[place] [address] Platelet 430 10 3/mcL Normal 150-450 [facility] ([place] Comment on above: Performed By: #### A ARBEN, GFR, CMP, ADIFF, CBC ####[place] [address] Platelet mean volume (Bld) [Entitic vol] 8.0 fL Normal 6.4-10.5 [facility] ([place] Comment on above: Performed By: #### A ARBEN, GFR, CMP, ADIFF, CBC ####[place] [address] RBC 3.41 10 6/mcL Low 4.50-6.00 [facility] ([place] Comment on above: Performed By: #### A ARBEN, GFR, CMP, ADIFF, CBC ####[place] [address] WBC 7.9 10 3/mcL Normal 4.5-10.8 [facility] ([place] Comment on above: Performed By: #### A ARBEN, GFR, CMP, ADIFF, CBC ####[place] [address] CMPon 05-01-2024 Albumin Level 1.4 G/dL Low 3.2-4.8 [facility] ([place] Comment on above: Performed By: #### A ARBEN, GFR, CMP, ADIFF, CBC ####[place] [address] Albumin/Globulin [Mass ratio] 0.3 {ratio} Low 0.9-1.6 [facility] ([place] Comment on above: Performed By: #### A ARBEN, GFR, CMP, ADIFF, CBC ####[place] [address] ALP [Catalytic activity/Vol] 180 U/L High 38-126 [facility] ([place] Comment on above: Performed By: #### A ARBEN, GFR, CMP, ADIFF, CBC ####[place] [address] ALT [Catalytic activity/Vol] 35 U/L Normal 12-55 [facility] ([place] Comment on above: Performed By: #### A ARBEN, GFR, CMP, ADIFF, CBC ####[address] [address] AST [Catalytic activity/Vol] 25 U/L Normal 8-34 [facility] ([place] Comment on above: Performed By: #### A ARBEN, GFR, CMP, ADIFF, CBC ####[address] [address] Bili Total 0.40 mg/dL Normal 0.20-1.20 [facility] ([place] Comment on above: Result Comment: Use of this assay is not recommended for patients undergoing treatment with eltrombopag due to the potential for falsely elevated results. Performed By: #### A ARBEN, GFR, CMP, ADIFF, CBC ####[place] [id number] BUN/Creatinine Ratio 18.8 ratio Normal 10.0-22.0 [facility] ([place] Comment on above: Performed By: #### A ARBEN, GFR, CMP, ADIFF, CBC ####[place] [id number] Calcium [Mass/Vol] 7.8 mg/dL Low 8.7-10.4 On license of [facility] ([place] Comment on above: Performed By: #### A ARBEN, GFR, CMP, ADIFF, CBC ####[address] [address] Chloride [Moles/Vol] 105 mmol/L Normal 98-110 [facility] ([place] Comment on above: Performed By: #### A ARBEN, GFR, CMP, ADIFF, CBC ####[address] [address] CO2 [Moles/Vol] 23 mmol/L Normal 22-32 [facility] ([place] Comment on above: Performed By: #### A ARBEN, GFR, CMP, ADIFF, CBC ####[address] [address] Creatinine [Mass/Vol] 2.18 mg/dL High 0.60-1.40 [facility] ([place] Comment on above: Performed By: #### A ARBEN, GFR, CMP, ADIFF, CBC ####[address] [address] Electrolyte Balance 9.0 mEq/L Normal 4.0-15.0 [facility] ([place] Comment on above: Performed By: #### A ARBEN, GFR, CMP, ADIFF, CBC ####[address] [address] Globulin 5.0 G/dL High 1.5-3.8 [facility] ([place] Comment on above: Performed By: #### A ARBEN, GFR, CMP, ADIFF, CBC ####[address] [address] Glucose [Mass/Vol] 207 mg/dL High 70-110 On license of [facility] ([place] Comment on above: Performed By: #### A ARBEN, GFR, CMP, ADIFF, CBC ####[address] [address] Potassium [Moles/Vol] 3.5 mmol/L Normal 3.5-5.0 [facility] ([place] Comment on above: Performed By: #### A ARBEN, GFR, CMP, ADIFF, CBC ####[address] [address] Sodium [Moles/Vol] 137 mmol/L Normal 136-145 On license of [facility] ([place] Comment on above: Performed By: #### A ARBEN, GFR, CMP, ADIFF, CBC ####[address] [address] Total Protein 6.4 G/dL Normal 5.7-8.2 [facility] ([place] Comment on above: Result Comment: No te - New Reference Range in effect 20 Performed By: #### A ARBEN, GFR, CMP, ADIFF, CBC ####[address] [address] Urea nitrogen [Mass/Vol] 41.0 mg/dL High 8.0-22.0 [facility] ([place] Comment on above: Performed By: #### A ARBEN, GFR, CMP, ADIFF, CBC ####[place] [address] LABORATORYOrdered By: Rufina ashraf on 05-01-2024 Blood Glucose Interventions Administered agent to decrease blood sugar (05/01/24 8:53 PM) [facility] Work Phone: LABORATORYOrdered By: SYSTEM SYSTEM on 05-01-2024 Albumin BCP dye [Mass/Vol] 1.4 G/dL Low 3.2 - 4.8 G/dL ADM SS Albumin/Globulin [Mass ratio] 0.3 {ratio} Low 0.9 - 1.6 ratio AH ADM SS ALP [Catalytic activity/Vol] 180 U/L High 38 - 126 U/L ADM SS ALT No additional P-5'-P [Catalytic activity/Vol] 35 U/L Normal 12 - 55 U/L AH ADM SS AST [Catalytic activity/Vol] 25 U/L Normal 8 - 34 U/L ADM SS Bilirubin [Mass/Vol] 0.40 mg/dL Normal 0.20 - 1.20 mg/dL AH ADM SS Comment on above: Interpretive Data: U se of this assay is not recommended for patients undergoing treatment with eltrombopag due to the potential for falsely elevated results. Globulin 5.0 G/dL High 1.5 - 3.8 G/dL AH ADM SS Protein [Mass/Vol] 6.4 G/dL Normal 5.7 - 8.2 G/dL AH ADM SS Comment on above: Interpretive Data: * *Note - New Reference Range in effect 20 .Auto Diffon 04-30-2024 Basophil, Absolute 0.1 10 3/mcL Normal 0.0-0.3 [facility] ([place] Comment on above: Performed By: #### A ARBEN, ADIFF, CBC, BMP, GFR, RFP ####[address] [address] Basophils/100 WBC (Bld) 0.6 % Normal 0.0-2.5 [facility] ([place] Comment on above: Performed By: #### A ARBEN, ADIFF, CBC, BMP, GFR, RFP ####[address] [address] Eosinophil, Absolute 0.2 10 3/mcL Normal 0.0-0.7 [facility] ([place] Comment on above: Performed By: #### A ARBEN, ADIFF, CBC, BMP, GFR, RFP ####[address] [address] Eosinophils/100 WBC (Bld) 1.7 % Normal 0.0-6.0 [facility] ([place] Comment on above: Performed By: #### A ARBEN, ADIFF, CBC, BMP, GFR, RFP ####[address] [address] Lymphocyte, Absolute 1.6 10 3/mcL Normal 0.9-4.3 [facility] ([place] Comment on above: Performed By: #### A ARBEN, ADIFF, CBC, BMP, GFR, RFP ####[address] [address] Lymphocytes/100 WBC (Bld) 14.4 % Low 20.0-40.0 [facility] ([place] Comment on above: Performed By: #### A ARBEN, ADIFF, CBC, BMP, GFR, RFP ####[address] [address] Monocyte, Absolute 1.1 10 3/mcL Normal 0.1-1.4 [facility] ([place] Comment on above: Performed By: #### A ARBEN, ADIFF, CBC, BMP, GFR, RFP ####[address] [address] Monocytes/100 WBC (Bld) 10.3 % Normal 2.0-13.0 [facility] ([place] Comment on above: Performed By: #### A ARBEN, ADIFF, CBC, BMP, GFR, RFP ####[address] [address] Neutrophils/100 WBC (Bld) 73.0 % Normal 50.0-75.0 [facility] ([place] Comment on above: Performed By: #### A ARBEN, ADIFF, CBC, BMP, GFR, RFP ####[address] [address] .GFRon 04-30-2024 GFR 36 ml/min/1.73sqm Normal [facility] ([place] Comment on above: Result Comment: GFR Population [...] A ARBEN, ADIFF, CBC, BMP, GFR, RFP ####[address] [address] GFR Non- 29 ml/min/1.73sqm Normal [facility] ([place] Comment on above: Result Comment: GFR Population [...] A ARBEN, ADIFF, CBC, BMP, GFR, RFP ####[address] [address] .NEUABSon 04-30-2024 Neutrophil, Absolute 8.0 10 3/mcL Normal 2.3-8.1 [facility] ([place] Comment on above: Performed By: #### A ARBEN, ADIFF, CBC, BMP, GFR, RFP ####[place] [id number] BMPon 04-30-2024 BUN/Creatinine Ratio 19.2 ratio Normal 10.0-22.0 [facility] ([place] Comment on above: Performed By: #### A ARBEN, ADIFF, CBC, BMP, GFR, RFP ####[address] [address] Calcium [Mass/Vol] 7.9 mg/dL Low 8.7-10.4 On license of [facility] ([place] Comment on above: Performed By: #### A ARBEN, ADIFF, CBC, BMP, GFR, RFP ####[address] [address] Chloride [Moles/Vol] 105 mmol/L Normal 98-110 [facility] ([place] Comment on above: Performed By: #### A ARBEN, ADIFF, CBC, BMP, GFR, RFP ####[address] [address] CO2 [Moles/Vol] 18 mmol/L Low 22-32 [facility] ([place] Comment on above: Performed By: #### A ARBEN, ADIFF, CBC, BMP, GFR, RFP ####[address] [address] Creatinine [Mass/Vol] 2.39 mg/dL High 0.60-1.40 [facility] ([place] Comment on above: Performed By: #### A ARBEN, ADIFF, CBC, BMP, GFR, RFP ####[address] [address] Electrolyte Balance 14.0 mEq/L Normal 4.0-15.0 [facility] ([place] Comment on above: Performed By: #### A ARBEN, ADIFF, CBC, BMP, GFR, RFP ####[address] [address] Glucose [Mass/Vol] 148 mg/dL High 70-110 On license of [facility] ([place] Comment on above: Performed By: #### A ARBEN, ADIFF, CBC, BMP, GFR, RFP ####[address] [address] Potassium [Moles/Vol] 4.0 mmol/L Normal 3.5-5.0 [facility] [place] Comment on above: Performed By: #### A ARBEN, ADIFF, CBC, BMP, GFR, RFP ####[place] [address] Sodium [Moles/Vol] 137 mmol/L Normal 136-145 On license of [facility] ([place] Comment on above: Performed By: #### A ARBEN, ADIFF, CBC, BMP, GFR, RFP ####[place] [address] Urea nitrogen [Mass/Vol] 46.0 mg/dL High 8.0-22.0 [facility] ([place] Comment on above: Performed By: #### A ARBEN, ADIFF, CBC, BMP, GFR, RFP ####[place] [address] CBCon 04-30-2024 Erythrocyte distribution width (RBC) [Ratio] 17.8 % High 11.5-15.5 [facility] [place] Comment on above: Performed By: #### A ARBEN, ADIFF, CBC, BMP, GFR, RFP ####[place] [address] Hematocrit (Bld) [Volume fraction] 27.1 % Low 40.0-52.0 [facility] [place] Comment on above: Performed By: #### A ARBEN, ADIFF, CBC, BMP, GFR, RFP ####[place] [address] Hgb 9.1 G/dL Low 13.0-17.5 [facility] ([place] Comment on above: Performed By: #### A ARBEN, ADIFF, CBC, BMP, GFR, RFP ####[place] [address] MCH (RBC) [Entitic mass] 27.5 pg Normal 27.0-33.0 [facility] ([place] Comment on above: Performed By: #### A ARBEN, ADIFF, CBC, BMP, GFR, RFP ####[place] [address] MCHC 33.4 G/dL Normal 32.0-36.0 [facility] ([place] Comment on above: Performed By: #### A ARBEN, ADIFF, CBC, BMP, GFR, RFP ####[place] [address] MCV (RBC) [Entitic vol] 82.3 fL Normal 81.0-100.0 [facility] [place] Comment on above: Performed By: #### A ARBEN, ADIFF, CBC, BMP, GFR, RFP ####[place] [address] Platelet 476 10 3/mcL High 150-450 [facility] [place] Comment on above: Performed By: #### A ARBEN, ADIFF, CBC, BMP, GFR, RFP ####[place] [address] Platelet mean volume (Bld) [Entitic vol] 9.1 fL Normal 6.4-10.5 [facility] ([place] Comment on above: Performed By: #### A ARBEN, ADIFF, CBC, BMP, GFR, RFP ####[place] [address] RBC 3.30 10 6/mcL Low 4.50-6.00 [facility] [place] Comment on above: Performed By: #### A ARBEN, ADIFF, CBC, BMP, GFR, RFP ####[place] [address] WBC 11.0 10 3/mcL High 4.5-10.8 [facility] ([place] Comment on above: Performed By: #### A ARBEN, ADIFF, CBC, BMP, GFR, RFP ####[place] [address] LABORATORYOrdered By: SYSTEM SYSTEM on 04-30-2024 Albumin BCP dye [Mass/Vol] 1.4 G/dL Low 3.2 - 4.8 G/dL AH ADM SS Phosphate [Mass/Vol] 4.5 mg/dL Normal 2.4 - 5 .1 mg/dL AH ADM SS Comment on above: Interpretive Data: * *Note - New Reference Range in effect 20 RFPon 04-30-2024 Albumin Level 1.4 G/dL Low 3.2-4.8 [facility] ([place] Comment on above: Performed By: #### A ARBEN, ADIFF, CBC, BMP, GFR, RFP ####[place] [address] Phosphate [Mass/Vol] 4.5 mg/dL Normal 2.4-5.1 [facility] ([place] Comment on above: Result Comment: No te - New Reference Range in effect 20 Performed By: #### A ARBEN, ADIFF, CBC, BMP, GFR, RFP ####[address] [address] .Auto Diffon 04-29-2024 Basophil, Absolute 0.1 10 3/mcL Normal 0.0-0.3 [facility] ([place] Comment on above: Performed By: #### H FP, ANEU, BMP, GFR, CBC, ADIFF, MG ####[place] [address] Basophils/100 WBC (Bld) 1.1 % Normal 0.0-2.5 [facility] ([place] Comment on above: Performed By: #### H FP, ANEU, BMP, GFR, CBC, ADIFF, MG ####[place] [address] Eosinophil, Absolute 0.4 10 3/mcL Normal 0.0-0.7 [facility] ([place] Comment on above: Performed By: #### H FP, ANEU, BMP, GFR, CBC, ADIFF, MG ####[place] [address] Eosinophils/100 WBC (Bld) 3.2 % Normal 0.0-6.0 [facility] ([place] Comment on above: Performed By: #### H FP, ANEU, BMP, GFR, CBC, ADIFF, MG ####[place] [address] Lymphocyte, Absolute 1.8 10 3/mcL Normal 0.9-4.3 [facility] ([place] Comment on above: Performed By: #### H FP, ANEU, BMP, GFR, CBC, ADIFF, MG ####[address] [address] Lymphocytes/100 WBC (Bld) 13.9 % Low 20.0-40.0 [facility] ([place] Comment on above: Performed By: #### H FP, ANEU, BMP, GFR, CBC, ADIFF, MG ####[place] [id number] [address] [place] [address] Monocyte, Absolute 1.2 10 3/mcL Normal 0.1-1.4 [facility] ([place] Comment on above: Performed By: #### H FP, ANEU, BMP, GFR, CBC, ADIFF, MG ####[address] [address] Monocytes/100 WBC (Bld) 9.3 % Normal 2.0-13.0 [facility] ([place] Comment on above: Performed By: #### H FP, ANEU, BMP, GFR, CBC, ADIFF, MG ####[address] [address] Neutrophils/100 WBC (Bld) 72.5 % Normal 50.0-75.0 [facility] [place] Comment on above: Performed By: #### H FP, ANEU, BMP, GFR, CBC, ADIFF, MG ####[address] [address] .GFRon 04-29-2024 GFR Non- 31 ml/min/1.73sqm Normal [facility] ([place] Comment on above: Result Comment: GFR Population [...] FP, ANEU, BMP, GFR, CBC, ADIFF, MG ####[place] [address] GFR 38 ml/min/1.73sqm Normal [facility] ([place] Comment on above: Result Comment: GFR Population [...] FP, ANEU, BMP, GFR, CBC, ADIFF, MG ####[place] [address] .NEUABSon 04-29-2024 Neutrophil, Absolute 9.1 10 3/mcL High 2.3-8.1 [facility] ([place] Comment on above: Performed By: #### H FP, ANEU, BMP, GFR, CBC, ADIFF, MG ####[place] [address] APTTon 04-29-2024 aPTT Coag (Bld) [Time] 39.0 s High 25.0-35.0 [facility] ([place] Comment on above: Result Comment: For Heparin anticoagulation therapy, the recommendedtherapeutic range is: 54-77 seconds (APTT Correlationwith Anti-Xa therapeutic range of 0.3-0.7 units/ml).PLEASE REFERENCE THE PHARMACY PROTOCOL FOR DOSING. Heparin dose (APTT) Heparin IV Normal [facility] ([place]) BMPon 04-29-2024 BUN/Creatinine Ratio 16.7 ratio Normal 10.0-22.0 [facility] ([place] Comment on above: Performed By: #### H FP, ANEU, BMP, GFR, CBC, ADIFF, MG ####[address] [address] Calcium [Mass/Vol] 8.2 mg/dL Low 8.7-10.4 On license of [facility] ([place] Comment on above: Performed By: #### H FP, ANEU, BMP, GFR, CBC, ADIFF, MG ####[place] [id number] Chloride [Moles/Vol] 105 mmol/L Normal 98-110 [facility] ([place]) Comment on above: Performed By: #### H FP, ANEU, BMP, GFR, CBC, ADIFF, MG ####[place] [id number] CO2 [Moles/Vol] 18 mmol/L Low 22-32 [facility] ([place]) Comment on above: Performed By: #### H FP, ANEU, BMP, GFR, CBC, ADIFF, MG ####[place] [address] Creatinine [Mass/Vol] 2.28 mg/dL High 0.60-1.40 [facility]ly [facility] ([place]) Comment on above: Performed By: #### H FP, ANEU, BMP, GFR, CBC, ADIFF, MG ####[place] [id number] Electrolyte Balance 12.0 mEq/L Normal 4.0-15.0 [facility]ly [facility] ([place]) Comment on above: Performed By: #### H FP, ANEU, BMP, GFR, CBC, ADIFF, MG ####[place] [address] Glucose [Mass/Vol] 125 mg/dL High 70-110 On license of [facility] ([place]) Comment on above: Performed By: #### H FP, ANEU, BMP, GFR, CBC, ADIFF, MG ####[place] [address] Potassium [Moles/Vol] 4.0 mmol/L Normal 3.5-5.0 [facility] ([place]) Comment on above: Performed By: #### H FP, ANEU, BMP, GFR, CBC, ADIFF, MG ####[address] [address] Sodium [Moles/Vol] 135 mmol/L Low 136-145 On license of [facility] ([place]) Comment on above: Performed By: #### H FP, ANEU, BMP, GFR, CBC, ADIFF, MG ####[address] [address] Urea nitrogen [Mass/Vol] 38.0 mg/dL High 8.0-22.0 [facility] ([place]) Comment on above: Performed By: #### H FP, ANEU, BMP, GFR, CBC, ADIFF, MG ####[place] [address] CBCon 04-29-2024 Erythrocyte distribution width (RBC) [Ratio] 17.3 % High 11.5-15.5 [facility] ([place]) Comment on above: Order Comment: must be drawn in a lavender 04/29/2024 06:36:26 EDT called @06:36am Performed By: #### H FP, ANEU, BMP, GFR, CBC, ADIFF, MG ####[place] [address] Hematocrit (Bld) [Volume fraction] 29.2 % Low 40.0-52.0 [facility] ([place] Comment on above: Order Comment: must be drawn in a lavender 04/29/2024 06:36:26 EDT called @06:36am Performed By: #### H FP, ANEU, BMP, GFR, CBC, ADIFF, MG ####[place] [address] Hgb 9.5 G/dL Low 13.0-17.5 [facility] ([place]) Comment on above: Order Comment: must be drawn in a lavender 04/29/2024 06:36:26 EDT called @06:36am Performed By: #### H FP, ANEU, BMP, GFR, CBC, ADIFF, MG ####[address] [address] MCH (RBC) [Entitic mass] 26.9 pg Low 27.0-33.0 [facility] ([place]) Comment on above: Order Comment: must be drawn in a [facility] 04/29/2024 06:36:26 EDT called @06:36am Performed By: #### H FP, ANEU, BMP, GFR, CBC, ADIFF, MG ####[place] [id number] [place] [id number] MCHC 32.7 G/dL Normal 32.0-36.0 [facility] ([place] Comment on above: Order Comment: must be drawn in a [facility] 04/29/2024 06:36:26 EDT called @06:36am Performed By: #### H FP, ANEU, BMP, GFR, CBC, ADIFF, MG ####[place] [id number] [place] [address] MCV (RBC) [Entitic vol] 82.3 fL Normal 81.0-100.0 [facility] ([place]) Comment on above: Order Comment: must be drawn in a [facility] 04/29/2024 06:36:26 EDT called @06:36am Performed By: #### H FP, ANEU, BMP, GFR, CBC, ADIFF, MG ####[place] [id number] [place] [address] Platelet 502 10 3/mcL High 150-450 [facility] ([place] Comment on above: Order Comment: must be drawn in a [facility] 04/29/2024 06:36:26 EDT called @06:36am Performed By: #### H FP, ANEU, BMP, GFR, CBC, ADIFF, MG ####[place] [id number] [place] [id number] Platelet mean volume (Bld) [Entitic vol] 9.0 fL Normal 6.4-10.5 [facility] ([place] Comment on above: Order Comment: must be drawn in a [facility] 04/29/2024 06:36:26 EDT called @06:36am Performed By: #### H FP, ANEU, BMP, GFR, CBC, ADIFF, MG ####[place] [id number] [place] [address] RBC 3.55 10 6/mcL Low 4.50-6.00 [facility] ([place]) Comment on above: Order Comment: must be drawn in a lavender 04/29/2024 06:36:26 EDT called @06:36am Performed By: #### H FP, ANEU, BMP, GFR, CBC, ADIFF, MG ####[address] [address] WBC 12.6 10 3/mcL High 4.5-10.8 [facility] ([place] Comment on above: Order Comment: must be drawn in a lavender 04/29/2024 06:36:26 EDT called @06:36am Performed By: #### H FP, ANEU, BMP, GFR, CBC, ADIFF, MG ####[address] [address] HFPon 04-29-2024 Bili Indirect 0.2 mg/dL Normal 0.1-10.0 [facility] ([place] Comment on above: Performed By: #### H FP, ANEU, BMP, GFR, CBC, ADIFF, MG ####[address] [address] Albumin Level 1.4 G/dL Low 3.2-4.8 [facility] ([place] Comment on above: Performed By: #### H FP, ANEU, BMP, GFR, CBC, ADIFF, MG ####[address] [address] Albumin/Globulin [Mass ratio] 0.3 {ratio} Low 0.9-1.6 [facility] ([place] Comment on above: Performed By: #### H FP, ANEU, BMP, GFR, CBC, ADIFF, MG ####[address] [address] ALP [Catalytic activity/Vol] 183 U/L High 38-126 [facility] ([place] Comment on above: Performed By: #### H FP, ANEU, BMP, GFR, CBC, ADIFF, MG ####[address] [address] ALT [Catalytic activity/Vol] 68 U/L High 12-55 [facility] ([place] Comment on above: Performed By: #### H FP, ANEU, BMP, GFR, CBC, ADIFF, MG ####[place] [address] AST [Catalytic activity/Vol] 74 U/L High 8-34 [facility] [place] Comment on above: Performed By: #### H FP, ANEU, BMP, GFR, CBC, ADIFF, MG ####[place] [address] Bili Direct 0.4 mg/dL Normal 0.0-0.4 [facility] ([place] Comment on above: Result Comment: Use of this assay is not recommended for patients undergoing treatment with eltrombopag due to the potential for falsely elevated results. Performed By: #### H FP, ANEU, BMP, GFR, CBC, ADIFF, MG ####[place] [address] Bili Total 0.60 mg/dL Normal 0.20-1.20 [facility] ([place] Comment on above: Result Comment: Use of this assay is not recommended for patients undergoing treatment with eltrombopag due to the potential for falsely elevated results. Performed By: #### H FP, ANEU, BMP, GFR, CBC, ADIFF, MG ####[place] [address] Globulin 4.9 G/dL High 1.5-3.8 [facility] ([place] Comment on above: Performed By: #### H FP, ANEU, BMP, GFR, CBC, ADIFF, MG ####[place] [address] Total Protein 6.3 G/dL Normal 5.7-8.2 [facility] ([place] Comment on above: Result Comment: No te - New Reference Range in effect 20 Performed By: #### H FP, ANEU, BMP, GFR, CBC, ADIFF, MG ####[place] [address] LABORATORYOrdered By: SYSTEM SYSTEM on 04-29-2024 Albumin [...] 4.9 G/dL High 1.5 - 3.8 G/dL ADM SS Magnesium [Mass/Vol] 1.8 mg/dL Normal 1.6 - 2 .4 mg/dL ADM SS Protein [Mass/Vol] 6.3 G/dL Normal 5.7 - 8.2 G/dL ADM [...] 04-29-2024 Magnesium [Mass/Vol] 1.8 mg/dL Normal 1.6-2.4 [facility] ([place] Comment on above: Performed By: #### H FP, ANEU, BMP, GFR, CBC, ADIFF, MG ####[address] [address] .Auto Diffon 04-28-2024 Basophil, Absolute 0.1 10 3/mcL Normal 0.0-0.3 [facility] ([place] Comment on above: Performed By: #### C BC, ADIFF, GFR, MG, ANEU, PBNP, RFP ####[address] [address] Basophils/100 WBC (Bld) 0.8 % Normal 0.0-2.5 [facility] ([place] Comment on above: Performed By: #### C BC, ADIFF, GFR, MG, ANEU, PBNP, RFP ####[address] [address] Eosinophil, Absolute 0.4 10 3/mcL Normal 0.0-0.7 [facility] ([place]) Comment on above: Performed By: #### C BC, ADIFF, GFR, MG, ANEU, PBNP, RFP ####[address] [address] Eosinophils/100 WBC (Bld) 2.4 % Normal 0.0-6.0 [facility] ([place] Comment on above: Performed By: #### C BC, ADIFF, GFR, MG, ANEU, PBNP, RFP ####[address] [address] Lymphocyte, Absolute 2.4 10 3/mcL Normal 0.9-4.3 [facility] ([place] Comment on above: Performed By: #### C BC, ADIFF, GFR, MG, ANEU, PBNP, RFP ####[address] [address] Lymphocytes/100 WBC (Bld) 14.1 % Low 20.0-40.0 [facility] ([place] Comment on above: Performed By: #### C BC, ADIFF, GFR, MG, ANEU, PBNP, RFP ####[address] [address] Monocyte, Absolute 1.5 10 3/mcL High 0.1-1.4 [facility] ([place] Comment on above: Performed By: #### C BC, ADIFF, GFR, MG, ANEU, PBNP, RFP ####[place] [id number] [place] [address] Monocytes/100 WBC (Bld) 8.7 % Normal 2.0-13.0 [facility] ([place] Comment on above: Performed By: #### C BC, ADIFF, GFR, MG, ANEU, PBNP, RFP ####[address] [address] Neutrophils/100 WBC (Bld) 74.0 % Normal 50.0-75.0 [facility] ([place] Comment on above: Performed By: #### C BC, ADIFF, GFR, MG, ANEU, PBNP, RFP ####[address] [address] .GFRon 04-28-2024 GFR Non- 30 ml/min/1.73sqm Normal [facility] ([place] Comment on above: Result Comment: GFR Population [...] BC, ADIFF, GFR, MG, ANEU, PBNP, RFP ####[address] [address] GFR 37 ml/min/1.73sqm Normal [facility] ([place] Comment on above: Result Comment: GFR Population [...] BC, ADIFF, GFR, MG, ANEU, PBNP, RFP ####[address] [address] .NEUABSon 04-28-2024 Neutrophil, Absolute 12.5 10 3/mcL High 2.3-8.1 [facility] ([place] Comment on above: Performed By: #### C BC, ADIFF, GFR, MG, ANEU, PBNP, RFP ####[address] [address] APTTon 04-28-2024 aPTT Coag (Bld) [Time] 33.5 s Normal 25.0-35.0 [facility] ([place]) Comment on above: Result Comment: For Heparin anticoagulation therapy, the recommendedtherapeutic range is: 54-77 seconds (APTT Correlationwith Anti-Xa therapeutic range of 0.3-0.7 units/ml).PLEASE REFERENCE THE PHARMACY PROTOCOL FOR DOSING. Heparin dose (APTT) Heparin IV Normal [facility] [place] aPTT Coag (Bld) [Time] 35.7 s High 25.0-35.0 [facility] [place] Comment on above: Result Comment: For Heparin anticoagulation therapy, the recommendedtherapeutic range is: 54-77 seconds (APTT Correlationwith Anti-Xa therapeutic range of 0.3-0.7 units/ml).PLEASE REFERENCE THE PHARMACY PROTOCOL FOR DOSING. Heparin dose (APTT) Heparin IV Normal [facility] [place] aPTT Coag (Bld) [Time] 34.4 s Normal 25.0-35.0 [facility] [place] Comment on above: Result Comment: For Heparin anticoagulation therapy, the recommendedtherapeutic range is: 54-77 seconds (APTT Correlationwith Anti-Xa therapeutic range of 0.3-0.7 units/ml).PLEASE REFERENCE THE PHARMACY PROTOCOL FOR DOSING. Performed By: #### C BC, ADIFF, GFR, MG, ANEU, PBNP, RFP ####[place] [address] Heparin dose (APTT) Unknown Normal [facility] ([place] Comment on above: Performed By: #### C BC, ADIFF, GFR, MG, ANEU, PBNP, RFP ####[place] [address] CBCon 04-28-2024 Erythrocyte distribution width (RBC) [Ratio] 17.9 % High 11.5-15.5 [facility] ([place] Comment on above: Performed By: #### C BC, ADIFF, GFR, MG, ANEU, PBNP, RFP ####[place] [address] Hematocrit (Bld) [Volume fraction] 28.3 % Low 40.0-52.0 [facility] ([place] Comment on above: Performed By: #### C BC, ADIFF, GFR, MG, ANEU, PBNP, RFP ####[place] [address] Hgb 9.1 G/dL Low 13.0-17.5 [facility] ([place] Comment on above: Performed By: #### C BC, ADIFF, GFR, MG, ANEU, PBNP, RFP ####[place] [address] MCH (RBC) [Entitic mass] 26.8 pg Low 27.0-33.0 [facility] ([place] Comment on above: Performed By: #### C BC, ADIFF, GFR, MG, ANEU, PBNP, RFP ####[place] [address] MCHC 32.1 G/dL Normal 32.0-36.0 [facility] ([place] Comment on above: Performed By: #### C BC, ADIFF, GFR, MG, ANEU, PBNP, RFP ####[place] [address] MCV (RBC) [Entitic vol] 83.5 fL Normal 81.0-100.0 [facility] ([place] Comment on above: Performed By: #### C BC, ADIFF, GFR, MG, ANEU, PBNP, RFP ####[place] [address] Platelet 561 10 3/mcL High 150-450 [facility] ([place] Comment on above: Performed By: #### C BC, ADIFF, GFR, MG, ANEU, PBNP, RFP ####[place] [address] Platelet mean volume (Bld) [Entitic vol] 9.3 fL Normal 6.4-10.5 [facility] ([place] Comment on above: Performed By: #### C BC, ADIFF, GFR, MG, ANEU, PBNP, RFP ####[place] [address] RBC 3.39 10 6/mcL Low 4.50-6.00 [facility] ([place] Comment on above: Performed By: #### C BC, ADIFF, GFR, MG, ANEU, PBNP, RFP ####[place] [address] WBC 16.9 10 3/mcL High 4.5-10.8 [facility] ([place] Comment on above: Performed By: #### C BC, ADIFF, GFR, MG, ANEU, PBNP, RFP ####[place] [address] DIGon 04-28-2024 LDose Digoxin: See eMAR Normal [facility] ([place] Comment on above: Performed By: #### D IG ####[place] [address] Digoxin Level 0.44 ng/mL Low 0.80-2.00 [facility] ([place] Comment on above: Performed By: #### D IG ####[place] [address] LABORATORYOrdered By: Yamel Wooy on 04-28-2024 aPTT Coag (Bld) [Time] 33.5 [...] Digoxin: See eMAR (04/28/24 7:08 PM) Normal Chemistry S LABORATORYOrdered By: Petra De Jesus on 04-28-2024 aPTT Coag (Bld) [Time] 35.7 s High 25.0 - 35.0 seconds [facility] SS Comment on above: Interpretive Data: F or Heparin anticoagulation therapy, the recommended therapeutic range is: 54-77 seconds (APTT Correlation with Anti-Xa therapeutic range of 0.3-0.7 units/ml). PLEASE REFERENCE THE PHARMACY PROTOCOL FOR DOSING. Heparin dose (APTT) Heparin IV (04/28/24 2:58 PM) Normal AH Coagulation S LABORATORYOrdered By: Missy wilson on 04-28-2024 Natriuretic peptide.B prohormone N-Terminal IA [Mass/Vol] 19290 pg/mL High 0 - 450 pg/mL AH ADM SS MGon 04-28-2024 Magnesium [Mass/Vol] 1.6 mg/dL Normal 1.6-2.4 [facility] ([place] Comment on above: Performed By: #### C BC, ADIFF, GFR, MG, ANEU, PBNP, RFP ####[place] [address] PBNPon 04-28-2024 Natriuretic peptide B (Bld) [Mass/Vol] 06398 pg/mL High 0-450 [facility] ([place] Comment on above: Performed By: #### C BC, ADIFF, GFR, MG, ANEU, PBNP, RFP ####[address] [address] RFPon 04-28-2024 Albumin Level 1.5 G/dL Low 3.2-4.8 [facility] ([place] Comment on above: Performed By: #### C BC, ADIFF, GFR, MG, ANEU, PBNP, RFP ####[place] [address] BUN/Creatinine Ratio 21.2 ratio Normal 10.0-22.0 [facility] ([place] Comment on above: Performed By: #### C BC, ADIFF, GFR, MG, ANEU, PBNP, RFP ####[address] [address] Calcium [Mass/Vol] 8.0 mg/dL Low 8.7-10.4 On license of [facility] ([place] Comment on above: Performed By: #### C BC, ADIFF, GFR, MG, ANEU, PBNP, RFP ####[address] [address] Chloride [Moles/Vol] 107 mmol/L Normal 98-110 [facility] ([place] Comment on above: Performed By: #### C BC, ADIFF, GFR, MG, ANEU, PBNP, RFP ####[address] [address] CO2 [Moles/Vol] 19 mmol/L Low 22-32 [facility] ([place] Comment on above: Performed By: #### C BC, ADIFF, GFR, MG, ANEU, PBNP, RFP ####[address] [address] Creatinine [Mass/Vol] 2.31 mg/dL High 0.60-1.40 [facility] ([place] Comment on above: Performed By: #### C BC, ADIFF, GFR, MG, ANEU, PBNP, RFP ####[address] [address] Electrolyte Balance 7.0 mEq/L Normal 4.0-15.0 [facility] ([place] Comment on above: Performed By: #### C BC, ADIFF, GFR, MG, ANEU, PBNP, RFP ####[address] [address] Glucose [Mass/Vol] 138 mg/dL High 70-110 On license of [facility] ([place] Comment on above: Performed By: #### C BC, ADIFF, GFR, MG, ANEU, PBNP, RFP ####[address] [address] Phosphate [Mass/Vol] 4.7 mg/dL Normal 2.4-5.1 [facility] ([place] Comment on above: Result Comment: No te - New Reference Range in effect 20 Performed By: #### C BC, ADIFF, GFR, MG, ANEU, PBNP, RFP ####[address] [address] Potassium [Moles/Vol] 4.2 mmol/L Normal 3.5-5.0 [facility] ([place] Comment on above: Performed By: #### C BC, ADIFF, GFR, MG, ANEU, PBNP, RFP ####[address] [address] Sodium [Moles/Vol] 133 mmol/L Low 136-145 On license of [facility] ([place] Comment on above: Performed By: #### C BC, ADIFF, GFR, MG, ANEU, PBNP, RFP ####[address] [address] Urea nitrogen [Mass/Vol] 49.0 mg/dL High 8.0-22.0 [facility] ([place] Comment on above: Performed By: #### C BC, ADIFF, GFR, MG, ANEU, PBNP, RFP ####[address] [address] XR CHEST 1 VIEWon 04-28-2024 XR CHEST 1 VIEW Normal [facility] ([place] .GFRon 04-27-2024 GFR 37 ml/min/1.73sqm Normal [facility] ([place] Comment on above: Result Comment: GFR Population [...] G FR, DIFF, CBC, MG, RFP, MORPH ####[address] [address] GFR Non- 31 ml/min/1.73sqm Normal [facility] ([place] Comment on above: Result Comment: GFR Population [...] G FR, DIFF, CBC, MG, RFP, MORPH ####[address] [address] .Manual Diffon 04-27-2024 Bands 2.0 % Normal 0.0-5.0 [facility] ([place] Comment on above: Performed By: #### D IFF, PRO, CBC, MORPH ####[address] [address] Basophil %, Manual 2.0 % Normal 0.0-2.5 On license of [facility] ([place] Comment on above: Performed By: #### D IFF, PRO, CBC, MORPH ####[address] [address] Basophil, Abs Manual 0.3 10 3/mcL Normal 0.0-0.3 [facility] ([place] Comment on above: Performed By: #### D IFF, PRO, CBC, MORPH ####[address] [address] Eosinophil %, Manual 4.0 % Normal 0.0-6.0 [facility] ([place] Comment on above: Performed By: #### D IFF, PRO, CBC, MORPH ####[address] [address] Eosinophil, Abs Manual 0.6 10 3/mcL Normal 0.0-0.7 [facility] ([place] Comment on above: Performed By: #### D IFF, PRO, CBC, MORPH ####[address] [address] Lymphocyte %, Manual 8.0 % Low 20.0-40.0 [facility] ([place] Comment on above: Performed By: #### D IFF, PRO, CBC, MORPH ####[address] [address] Lymphocyte, Abs Manual 1.3 10 3/mcL Normal 0.9-4.3 [facility] ([place] Comment on above: Performed By: #### D IFF, PRO, CBC, MORPH ####[address] [address] Monocyte %, Manual 4.0 % Normal 2.0-13.0 On license of [facility] ([place] Comment on above: Performed By: #### D IFF, PRO, CBC, MORPH ####[address] [address] Monocyte, Abs Manual 0.7 10 3/mcL Normal 0.1-1.4 [facility] ([place] Comment on above: Performed By: #### D IFF, PRO, CBC, MORPH ####[address] [address] Neutrophil %, Manual 80.0 % High 50.0-75.0 [facility] ([place] Comment on above: Performed By: #### D IFF, PRO, CBC, MORPH ####[address] [address] Neutrophil, Abs Manual 13.2 10 3/mcL High 2.3-8.1 [facility] ([place] Comment on above: Performed By: #### D IFF, PRO, CBC, MORPH ####[address] [address] Nucleated RBC 0.0 /100 WBC Normal [facility] ([place] Comment on above: Performed By: #### D IFF, PRO, CBC, MORPH ####[address] [address] Bands 5.0 % Normal 0.0-5.0 [facility] ([place] Comment on above: Performed By: #### G FR, DIFF, CBC, MG, RFP, MORPH ####[address] [address] Basophil %, Manual 0.0 % Normal 0.0-2.5 On license of [facility] ([place] Comment on above: Performed By: #### G FR, DIFF, CBC, MG, RFP, MORPH ####[address] [address] Basophil, Abs Manual 0.0 10 3/mcL Normal 0.0-0.3 [facility] ([place] Comment on above: Performed By: #### G FR, DIFF, CBC, MG, RFP, MORPH ####[address] [address] Eosinophil %, Manual 3.0 % Normal 0.0-6.0 [facility] [place] Comment on above: Performed By: #### G FR, DIFF, CBC, MG, RFP, MORPH ####[address] [address] Eosinophil, Abs Manual 0.5 10 3/mcL Normal 0.0-0.7 [facility] ([place] Comment on above: Performed By: #### G FR, DIFF, CBC, MG, RFP, MORPH ####[address] [address] Lymphocyte %, Manual 10.0 % Low 20.0-40.0 [facility] ([place] Comment on above: Performed By: #### G FR, DIFF, CBC, MG, RFP, MORPH ####[address] [address] Lymphocyte, Abs Manual 1.7 10 3/mcL Normal 0.9-4.3 [facility] ([place] Comment on above: Performed By: #### G FR, DIFF, CBC, MG, RFP, MORPH ####[place] [address] Metamyelocyte 1.0 % Normal [facility] ([place] Comment on above: Performed By: #### G FR, DIFF, CBC, MG, RFP, MORPH ####[address] [address] Monocyte %, Manual 16.0 % High 2.0-13.0 On license of [facility] ([place] Comment on above: Performed By: #### G FR, DIFF, CBC, MG, RFP, MORPH ####[address] [address] Monocyte, Abs Manual 2.7 10 3/mcL High 0.1-1.4 [facility] ([place] Comment on above: Performed By: #### G FR, DIFF, CBC, MG, RFP, MORPH ####[address] [address] Neutrophil %, Manual 65.0 % Normal 50.0-75.0 [facility] ([place] Comment on above: Performed By: #### G FR, DIFF, CBC, MG, RFP, MORPH ####[address] [address] Neutrophil, Abs Manual 11.6 10 3/mcL High 2.3-8.1 [facility] ([place] Comment on above: Performed By: #### G FR, DIFF, CBC, MG, RFP, MORPH ####[place] [address] Nucleated RBC 0.0 /100 WBC Normal [facility] ([place] Comment on above: Performed By: #### G FR, DIFF, CBC, MG, RFP, MORPH ####[place] [address] .Morphon 04-27-2024 Platelet Estimate Slt Increased Normal [facility] ([place] Comment on above: Performed By: #### D IFF, PRO, CBC, MORPH ####[place] [address] Anisocytosis Ql (Bld) 1+ Normal [facility] ([place] Comment on above: Performed By: #### D IFF, PRO, CBC, MORPH ####[place] [address] Anisocytosis Ql (Bld) 1+ Normal [facility] ([place] Comment on above: Performed By: #### G FR, DIFF, CBC, MG, RFP, MORPH ####[place] [address] Microcytosis 1+ Normal [facility] ([place] Comment on above: Performed By: #### G FR, DIFF, CBC, MG, RFP, MORPH ####[place] [address] Platelet Estimate Increased Normal [facility] ([place] Comment on above: Performed By: #### G FR, DIFF, CBC, MG, RFP, MORPH ####[place] [address] Polychrom 1+ Normal [facility] ([place] Comment on above: Performed By: #### G FR, DIFF, CBC, MG, RFP, MORPH ####[place] [address] Toxic Gran 1+ Normal [facility] ([place] Comment on above: Performed By: #### G FR, DIFF, CBC, MG, RFP, MORPH ####[place] [address] APTTon 04-27-2024 aPTT Coag (Bld) [Time] 33.1 s Normal 25.0-35.0 [facility] ([place] Comment on above: Result Comment: For Heparin anticoagulation therapy, the recommendedtherapeutic range is: 54-77 seconds (APTT Correlationwith Anti-Xa therapeutic range of 0.3-0.7 units/ml).PLEASE REFERENCE THE PHARMACY PROTOCOL FOR DOSING. Heparin dose (APTT) Unknown Normal [facility] [place] aPTT Coag (Bld) [Time] 32.3 s Normal 25.0-35.0 [facility] [place] Comment on above: Result Comment: For Heparin anticoagulation therapy, the recommendedtherapeutic range is: 54-77 seconds (APTT Correlationwith Anti-Xa therapeutic range of 0.3-0.7 units/ml).PLEASE REFERENCE THE PHARMACY PROTOCOL FOR DOSING. Heparin dose (APTT) Heparin IV Normal [facility] [place] aPTT Coag (Bld) [Time] 34.0 s Normal 25.0-35.0 [facility] [place] Comment on above: Result Comment: For Heparin anticoagulation therapy, the recommendedtherapeutic range is: 54-77 seconds (APTT Correlationwith Anti-Xa therapeutic range of 0.3-0.7 units/ml).PLEASE REFERENCE THE PHARMACY PROTOCOL FOR DOSING. Performed By: #### D IFF, PRO, CBC, MORPH ####[address] [address] Heparin dose (APTT) Heparin IV Normal [facility] ([place] Comment on above: Performed By: #### D IFF, PRO, CBC, MORPH ####[address] [address] CBCon 04-27-2024 Erythrocyte distribution width (RBC) [Ratio] 16.9 % High 11.5-15.5 [facility] ([place] Comment on above: Performed By: #### D IFF, PRO, CBC, MORPH ####[address] [address] Hematocrit (Bld) [Volume fraction] 28.0 % Low 40.0-52.0 [facility] ([place] Comment on above: Performed By: #### D IFF, PRO, CBC, MORPH ####[address] [address] Hgb 8.8 G/dL Low 13.0-17.5 [facility] [place] Comment on above: Performed By: #### D IFF, PRO, CBC, MORPH ####[place] [address] MCH (RBC) [Entitic mass] 26.0 pg Low 27.0-33.0 [facility] ([place] Comment on above: Performed By: #### D IFF, PRO, CBC, MORPH ####[place] [address] MCHC 31.3 G/dL Low 32.0-36.0 [facility] ([place] Comment on above: Performed By: #### D IFF, PRO, CBC, MORPH ####[place] [address] MCV (RBC) [Entitic vol] 83.1 fL Normal 81.0-100.0 [facility] ([place]) Comment on above: Performed By: #### D IFF, PRO, CBC, MORPH ####[place] [address] Platelet 535 10 3/mcL High 150-450 [facility] ([place] Comment on above: Performed By: #### D IFF, PRO, CBC, MORPH ####[place] [address] Platelet mean volume (Bld) [Entitic vol] 9.6 fL Normal 6.4-10.5 [facility] ([place] Comment on above: Performed By: #### D IFF, PRO, CBC, MORPH ####[place] [address] RBC 3.37 10 6/mcL Low 4.50-6.00 [facility] ([place] Comment on above: Performed By: #### D IFF, PRO, CBC, MORPH ####[place] [address] WBC 16.1 10 3/mcL High 4.5-10.8 [facility] ([place] Comment on above: Performed By: #### D IFF, PRO, CBC, MORPH ####[place] [address] Erythrocyte distribution width (RBC) [Ratio] 16.9 % High 11.5-15.5 [facility] ([place] Comment on above: Performed By: #### G FR, DIFF, CBC, MG, RFP, MORPH ####[place] [address] Hematocrit (Bld) [Volume fraction] 28.9 % Low 40.0-52.0 [facility] ([place] Comment on above: Performed By: #### G FR, DIFF, CBC, MG, RFP, MORPH ####[place] [address] Hgb 9.1 G/dL Low 13.0-17.5 [facility] ([place] Comment on above: Performed By: #### G FR, DIFF, CBC, MG, RFP, MORPH ####[place] [address] MCH (RBC) [Entitic mass] 26.3 pg Low 27.0-33.0 [facility] ([place] Comment on above: Performed By: #### G FR, DIFF, CBC, MG, RFP, MORPH ####[place] [address] MCHC 31.6 G/dL Low 32.0-36.0 [facility] ([place] Comment on above: Performed By: #### G FR, DIFF, CBC, MG, RFP, MORPH ####[place] [address] MCV (RBC) [Entitic vol] 83.2 fL Normal 81.0-100.0 [facility] ([place] Comment on above: Performed By: #### G FR, DIFF, CBC, MG, RFP, MORPH ####[place] [address] Platelet 594 10 3/mcL High 150-450 [facility] ([place] Comment on above: Performed By: #### G FR, DIFF, CBC, MG, RFP, MORPH ####[place] [id number] Platelet mean volume (Bld) [Entitic vol] 9.4 fL Normal 6.4-10.5 [facility] ([place] Comment on above: Performed By: #### G FR, DIFF, CBC, MG, RFP, MORPH ####[address] [address] RBC 3.48 10 6/mcL Low 4.50-6.00 [facility] ([place] Comment on above: Performed By: #### G FR, DIFF, CBC, MG, RFP, MORPH ####[address] [address] WBC 16.7 10 3/mcL High 4.5-10.8 [facility] ([place] Comment on above: Performed By: #### G FR, DIFF, CBC, MG, RFP, MORPH ####[address] [address] LABORATORYOrdered By: Samra Guillaume on 04-27-2024 Blood Glucose Interventions Administered agent to decrease blood sugar (04/27/24 11:36 AM) [facility] Work Phone: LABORATORYOrdered By: SYSTEM SYSTEM on 04-27-2024 Anisocytosis Ql (Bld) 1+ *NA* (04/27/24 9:40 AM) Invalid Interpretation Code AH Workflow SS Band form neutrophils/100 WBC (Bld) 2.0 % Normal 0.0 - 5.0 % AH Workflow SS Basophils (Bld) [#/Vol] 0.3 103/mcL Normal 0.0 - 0.3 10^3/mcL AH Workflow SS Basophils/100 WBC (Bld) 2.0 % Normal 0.0 - 2.5 % AH Workflow SS Eosinophils (Bld) [#/Vol] 0.6 103/mcL Normal 0.0 - 0.7 10^3/mcL AH Workflow SS Eosinophils/100 WBC (Bld) 4.0 % [...] *NA* (04/27/24 9:40 AM) Invalid Interpretation Code AH Workflow SS Anisocytosis Ql (Bld) 1+ *NA* [...] *NA* (04/27/24 3:43 AM) Invalid Interpretation Code AH Workflow SS Monocytes (Bld) [#/Vol] 2.7 103/mcL [...] WBC Invalid Interpretation Code AH Workflow SS Phosphate [Mass/Vol] 4.7 mg/dL Normal [...] [facility] SS Comment on above: Interpretive Data: Simon briones [employer] (CHEST, 1991, 102:[id number]) recommended therapeutic range for oral anticoagulant therapy is: LOW RISK: Prophylaxis of venous thrombosis INR: 2.0-3.0 Treatment of pulmonary embolism 2.0-3.0 Prevention of systemic embolism 2.0-3.0 HIGH RISK: Mechanical prosthetic valves 2.5-3.5 MGon 04-27-2024 Magnesium [Mass/Vol] 1.7 mg/dL Normal 1.6-2.4 [facility] ([place] Comment on above: Performed By: #### G FR, DIFF, CBC, MG, RFP, MORPH ####[place] [address] PROon 04-27-2024 INR Coag (PPP) [Relative time] 1.4 {INR} Normal [facility] ([place] Comment on above: Result Comment: [employer] (CHEST, 1991, 102:[id number])recommended therapeutic range for oral anticoagulant therapy is:LOW RISK: Prophylaxis of venous thrombosis INR: 2.0-3.0 Treatment of pulmonary embolism 2.0-3.0 Prevention of systemic embolism 2.0-3.0HIGH RISK: Mechanical prosthetic valves 2.5-3.5 Performed By: #### D IFF, PRO, CBC, MORPH ####[address] [address] PT Coag (PPP) [Time] 15.6 s High 9.0-14.4 [facility] ([place] Comment on above: Result Comment: Effe ctive 06/02/08, Protime results may be affected by some antibiotics (i.e. Ciprofloxacin, Azithromycin, Bactrim) which may potentiate the action of oral anticoagulants, with further increases in Protime/INR. Performed By: #### D IFF, PRO, CBC, MORPH ####[address] [address] RFPon 04-27-2024 Albumin Level 1.2 G/dL Low 3.2-4.8 [facility] ([place] Comment on above: Performed By: #### G FR, DIFF, CBC, MG, RFP, MORPH ####[address] [address] BUN/Creatinine Ratio 24.0 ratio High 10.0-22.0 [facility] ([place] Comment on above: Performed By: #### G FR, DIFF, CBC, MG, RFP, MORPH ####[address] [address] Calcium [Mass/Vol] 8.0 mg/dL Low 8.7-10.4 On license of [facility] ([place]) Comment on above: Performed By: #### G FR, DIFF, CBC, MG, RFP, MORPH ####[address] [address] Chloride [Moles/Vol] 107 mmol/L Normal 98-110 [facility] ([place] Comment on above: Performed By: #### G FR, DIFF, CBC, MG, RFP, MORPH ####[address] [address] CO2 [Moles/Vol] 18 mmol/L Low 22-32 [facility] ([place] Comment on above: Performed By: #### G FR, DIFF, CBC, MG, RFP, MORPH ####[address] [address] Creatinine [Mass/Vol] 2.29 mg/dL High 0.60-1.40 [facility] ([place]) Comment on above: Performed By: #### G FR, DIFF, CBC, MG, RFP, MORPH ####[address] [address] Electrolyte Balance 11.0 mEq/L Normal 4.0-15.0 [facility] ([place] Comment on above: Performed By: #### G FR, DIFF, CBC, MG, RFP, MORPH ####[place] [address] Glucose [Mass/Vol] 123 mg/dL High 70-110 On license of [facility] ([place] Comment on above: Performed By: #### G FR, DIFF, CBC, MG, RFP, MORPH ####[place] [address] Phosphate [Mass/Vol] 4.7 mg/dL Normal 2.4-5.1 [facility] ([place] Comment on above: Result Comment: No te - New Reference Range in effect 20 Performed By: #### G FR, DIFF, CBC, MG, RFP, MORPH ####[address] [address] Potassium [Moles/Vol] 4.6 mmol/L Normal 3.5-5.0 [facility] ([place] Comment on above: Performed By: #### G FR, DIFF, CBC, MG, RFP, MORPH ####[address] [address] Sodium [Moles/Vol] 136 mmol/L Normal 136-145 On license of [facility] ([place] Comment on above: Performed By: #### G FR, DIFF, CBC, MG, RFP, MORPH ####[address] [address] Urea nitrogen [Mass/Vol] 55.0 mg/dL High 8.0-22.0 [facility] ([place] Comment on above: Performed By: #### G FR, DIFF, CBC, MG, RFP, MORPH ####[address] [address] XR CHEST 1 VIEWon 04-27-2024 XR CHEST 1 VIEW Normal [facility] ([place]) .GFRon 04-26-2024 GFR 33 ml/min/1.73sqm Normal [facility] ([place] Comment on above: Result Comment: GFR Population [...] #### C BC, BMP, MORPH, GFR, DIFF ####[address] [address] GFR Non- 27 ml/min/1.73sqm Normal [facility] ([place] Comment on above: Result Comment: GFR Population [...] #### C BC, BMP, MORPH, GFR, DIFF ####[place] [address] .Manual Diffon 04-26-2024 Bands 2.0 % Normal 0.0-5.0 [facility] ([place] Comment on above: Performed By: #### C BC, BMP, MORPH, GFR, DIFF ####[place] [address] Basophil %, Manual 0.0 % Normal 0.0-2.5 On license of [facility] ([place] Comment on above: Performed By: #### C BC, BMP, MORPH, GFR, DIFF ####[place] [address] Basophil, Abs Manual 0.0 10 3/mcL Normal 0.0-0.3 [facility] ([place]) Comment on above: Performed By: #### C BC, BMP, MORPH, GFR, DIFF ####[place] [address] Eosinophil %, Manual 2.0 % Normal 0.0-6.0 [facility] ([place] Comment on above: Performed By: #### C BC, BMP, MORPH, GFR, DIFF ####[place] [address] Eosinophil, Abs Manual 0.3 10 3/mcL Normal 0.0-0.7 [facility] ([place] Comment on above: Performed By: #### C BC, BMP, MORPH, GFR, DIFF ####[place] [address] Lymphocyte %, Manual 12.0 % Low 20.0-40.0 [facility] [place] Comment on above: Performed By: #### C BC, BMP, MORPH, GFR, DIFF ####[place] [address] Lymphocyte, Abs Manual 2.1 10 3/mcL Normal 0.9-4.3 [facility] ([place] Comment on above: Performed By: #### C BC, BMP, MORPH, GFR, DIFF ####[place] [address] Monocyte %, Manual 10.0 % Normal 2.0-13.0 On license of [facility] ([place] Comment on above: Performed By: #### C BC, BMP, MORPH, GFR, DIFF ####[place] [address] Monocyte, Abs Manual 1.7 10 3/mcL High 0.1-1.4 [facility] ([place] Comment on above: Performed By: #### C BC, BMP, MORPH, GFR, DIFF ####[place] [address] Neutrophil %, Manual 74.0 % Normal 50.0-75.0 [facility] [place] Comment on above: Performed By: #### C BC, BMP, MORPH, GFR, DIFF ####[place] [address] Neutrophil, Abs Manual 13.0 10 3/mcL High 2.3-8.1 [facility] ([place] Comment on above: Performed By: #### C BC, BMP, MORPH, GFR, DIFF ####[place] [address] Nucleated RBC 0.0 /100 WBC Normal [facility] ([place] Comment on above: Performed By: #### C BC, BMP, MORPH, GFR, DIFF ####[place] [address] .Morphon 04-26-2024 Anisocytosis Ql (Bld) 1+ Normal [facility] ([place] Comment on above: Performed By: #### C BC, BMP, MORPH, GFR, DIFF ####[place] [address] Platelet Estimate Slt Increased Normal [facility] ([place] Comment on above: Performed By: #### C BC, BMP, MORPH, GFR, DIFF ####[place] [address] Polychrom 1+ Normal [facility] ([place] Comment on above: Performed By: #### C BC, BMP, MORPH, GFR, DIFF ####[place] [address] BMPon 04-26-2024 BUN/Creatinine Ratio 24.1 ratio High 10.0-22.0 [facility] ([place] Comment on above: Performed By: #### C BC, BMP, MORPH, GFR, DIFF ####[address] [address] Calcium [Mass/Vol] 7.7 mg/dL Low 8.7-10.4 On license of [facility] ([place] Comment on above: Performed By: #### C BC, BMP, MORPH, GFR, DIFF ####[address] [address] Chloride [Moles/Vol] 107 mmol/L Normal 98-110 [facility] ([place] Comment on above: Performed By: #### C BC, BMP, MORPH, GFR, DIFF ####[address] [address] CO2 [Moles/Vol] 19 mmol/L Low 22-32 [facility] ([place] Comment on above: Performed By: #### C BC, BMP, MORPH, GFR, DIFF ####[address] [address] Creatinine [Mass/Vol] 2.57 mg/dL High 0.60-1.40 [facility] ([place] Comment on above: Performed By: #### C BC, BMP, MORPH, GFR, DIFF ####[address] [address] Electrolyte Balance 9.0 mEq/L Normal 4.0-15.0 [facility] ([place] Comment on above: Performed By: #### C BC, BMP, MORPH, GFR, DIFF ####[address] [address] Glucose [Mass/Vol] 138 mg/dL High 70-110 On license of [facility] ([place] Comment on above: Performed By: #### C BC, BMP, MORPH, GFR, DIFF ####[address] [address] Potassium [Moles/Vol] 5.0 mmol/L Normal 3.5-5.0 [facility] [place] Comment on above: Performed By: #### C BC, BMP, MORPH, GFR, DIFF ####[place] [address] Sodium [Moles/Vol] 135 mmol/L Low 136-145 On license of [facility] ([place] Comment on above: Performed By: #### C BC, BMP, MORPH, GFR, DIFF ####[place] [address] Urea nitrogen [Mass/Vol] 62.0 mg/dL High 8.0-22.0 [facility] ([place] Comment on above: Performed By: #### C BC, BMP, MORPH, GFR, DIFF ####[place] [address] CBCon 04-26-2024 Erythrocyte distribution width (RBC) [Ratio] 16.9 % High 11.5-15.5 [facility] ([place] Comment on above: Performed By: #### C BC, BMP, MORPH, GFR, DIFF ####[place] [address] Hematocrit (Bld) [Volume fraction] 27.5 % Low 40.0-52.0 [facility] ([place] Comment on above: Performed By: #### C BC, BMP, MORPH, GFR, DIFF ####[place] [address] Hgb 8.9 G/dL Low 13.0-17.5 [facility] ([place] Comment on above: Performed By: #### C BC, BMP, MORPH, GFR, DIFF ####[place] [address] MCH (RBC) [Entitic mass] 26.5 pg Low 27.0-33.0 [facility] ([place] Comment on above: Performed By: #### C BC, BMP, MORPH, GFR, DIFF ####[place] [address] MCHC 32.3 G/dL Normal 32.0-36.0 [facility] ([place] Comment on above: Performed By: #### C BC, BMP, MORPH, GFR, DIFF ####[address] [address] MCV (RBC) [Entitic vol] 82.0 fL Normal 81.0-100.0 [facility] ([place] Comment on above: Performed By: #### C BC, BMP, MORPH, GFR, DIFF ####[address] [address] Platelet 517 10 3/mcL High 150-450 [facility] ([place] Comment on above: Performed By: #### C BC, BMP, MORPH, GFR, DIFF ####[place] [address] Platelet mean volume (Bld) [Entitic vol] 10.3 fL Normal 6.4-10.5 [facility] ([place] Comment on above: Performed By: #### C BC, BMP, MORPH, GFR, DIFF ####[place] [address] RBC 3.36 10 6/mcL Low 4.50-6.00 [facility] ([place] Comment on above: Performed By: #### C BC, BMP, MORPH, GFR, DIFF ####[place] [address] WBC 17.2 10 3/mcL High 4.5-10.8 [facility] ([place] Comment on above: Performed By: #### C BC, BMP, MORPH, GFR, DIFF ####[place] [address] LABORATORYOrdered By: SYSTEM SYSTEM on 04-26-2024 Anisocytosis [...] SS .GFRon 04-25-2024 GFR 33 ml/min/1.73sqm Normal [facility] ([place] Comment on above: Result Comment: GFR Population [...] CAION, BMP, FERR, DIFF, GFR, CBC, FES ####[place] [address] GFR Non- 27 ml/min/1.73sqm Normal [facility] ([place] Comment on above: Result Comment: GFR Population [...] CAION, BMP, FERR, DIFF, GFR, CBC, FES ####[place] [address] .Manual Diffon 04-25-2024 Basophil %, Manual 0.0 % Normal 0.0-2.5 On license of [facility] ([place] Comment on above: Performed By: #### M ORPH, CAION, BMP, FERR, DIFF, GFR, CBC, FES ####[place] [address] Basophil, Abs Manual 0.0 10 3/mcL Normal 0.0-0.3 [facility] ([place]) Comment on above: Performed By: #### M ORPH, CAION, BMP, FERR, DIFF, GFR, CBC, FES ####[place] [address] Eosinophil %, Manual 0.0 % Normal 0.0-6.0 [facility] ([place] Comment on above: Performed By: #### M ORPH, CAION, BMP, FERR, DIFF, GFR, CBC, FES ####[place] [address] Eosinophil, Abs Manual 0.0 10 3/mcL Normal 0.0-0.7 [facility] ([place] Comment on above: Performed By: #### M ORPH, CAION, BMP, FERR, DIFF, GFR, CBC, FES ####[address] [address] Lymphocyte %, Manual 12.0 % Low 20.0-40.0 [facility] ([place] Comment on above: Performed By: #### M ORPH, CAION, BMP, FERR, DIFF, GFR, CBC, FES ####[address] [address] Lymphocyte, Abs Manual 2.1 10 3/mcL Normal 0.9-4.3 [facility] ([place] Comment on above: Performed By: #### M ORPH, CAION, BMP, FERR, DIFF, GFR, CBC, FES ####[address] [address] Monocyte %, Manual 3.0 % Normal 2.0-13.0 On license of [facility] ([place] Comment on above: Performed By: #### M ORPH, CAION, BMP, FERR, DIFF, GFR, CBC, FES ####[address] [address] Monocyte, Abs Manual 0.5 10 3/mcL Normal 0.1-1.4 [facility] ([place] Comment on above: Performed By: #### M ORPH, CAION, BMP, FERR, DIFF, GFR, CBC, FES ####[address] [address] Neutrophil %, Manual 85.0 % High 50.0-75.0 [facility] ([place] Comment on above: Performed By: #### M ORPH, CAION, BMP, FERR, DIFF, GFR, CBC, FES ####[address] [address] Neutrophil, Abs Manual 14.7 10 3/mcL High 2.3-8.1 [facility] ([place] Comment on above: Performed By: #### M ORPH, CAION, BMP, FERR, DIFF, GFR, CBC, FES ####[address] [address] Nucleated RBC 0.0 /100 WBC Normal [facility] ([place] Comment on above: Performed By: #### M ORPH, CAION, BMP, FERR, DIFF, GFR, CBC, FES ####[address] [address] .Morphon 04-25-2024 Anisocytosis Ql (Bld) 1+ Normal [facility] ([place] Comment on above: Performed By: #### M ORPH, CAION, BMP, FERR, DIFF, GFR, CBC, FES ####[place] [address] Hypochrom 1+ Normal [facility] ([place] Comment on above: Performed By: #### M ORPH, CAION, BMP, FERR, DIFF, GFR, CBC, FES ####[place] [address] Large Platelets Few Normal [facility] ([place] Comment on above: Performed By: #### M ORPH, CAION, BMP, FERR, DIFF, GFR, CBC, FES ####[place] [address] Platelet Estimate Normal Normal [facility]) Comment on above: Performed By: #### M ORPH, CAION, BMP, FERR, DIFF, GFR, CBC, FES ####[place] [address] Polychrom 1+ Normal [facility] ([place] Comment on above: Performed By: #### M ORPH, CAION, BMP, FERR, DIFF, GFR, CBC, FES ####[place] [address] APTTon 04-25-2024 aPTT Coag (Bld) [Time] 35.9 s High 25.0-35.0 [facility] ([place] Comment on above: Result Comment: For Heparin anticoagulation therapy, the recommendedtherapeutic range is: 54-77 seconds (APTT Correlationwith Anti-Xa therapeutic range of 0.3-0.7 units/ml).PLEASE REFERENCE THE PHARMACY PROTOCOL FOR DOSING. Heparin dose (APTT) Heparin IV Normal [facility] [place] BMPon 04-25-2024 BUN/Creatinine Ratio 23.3 ratio High 10.0-22.0 [facility] ([place] Comment on above: Performed By: #### M ORPH, CAION, BMP, FERR, DIFF, GFR, CBC, FES ####[address] [address] Calcium [Mass/Vol] 7.9 mg/dL Low 8.7-10.4 On license of [facility] ([place] Comment on above: Performed By: #### M ORPH, CAION, BMP, FERR, DIFF, GFR, CBC, FES ####[address] [address] Chloride [Moles/Vol] 106 mmol/L Normal 98-110 [facility] ([place] Comment on above: Performed By: #### M ORPH, CAION, BMP, FERR, DIFF, GFR, CBC, FES ####[address] [address] CO2 [Moles/Vol] 16 mmol/L Low 22-32 [facility] ([place] Comment on above: Performed By: #### M ORPH, CAION, BMP, FERR, DIFF, GFR, CBC, FES ####[address] [address] Creatinine [Mass/Vol] 2.58 mg/dL High 0.60-1.40 [facility] ([place] Comment on above: Performed By: #### M ORPH, CAION, BMP, FERR, DIFF, GFR, CBC, FES ####[address] [address] Electrolyte Balance 13.0 mEq/L Normal 4.0-15.0 [facility] ([place] Comment on above: Performed By: #### M ORPH, CAION, BMP, FERR, DIFF, GFR, CBC, FES ####[address] [address] Glucose [Mass/Vol] 119 mg/dL High 70-110 On [facility] of [facility] ([place] Comment on above: Performed By: #### M ORPH, CAION, BMP, FERR, DIFF, GFR, CBC, FES ####[address] [address] Potassium [Moles/Vol] 4.5 mmol/L Normal 3.5-5.0 [facility] ([place] Comment on above: Performed By: #### M ORPH, CAION, BMP, FERR, DIFF, GFR, CBC, FES ####[place] [address] Sodium [Moles/Vol] 135 mmol/L Low 136-145 On license of [facility] ([place] Comment on above: Performed By: #### M ORPH, CAION, BMP, FERR, DIFF, GFR, CBC, FES ####[place] [address] Urea nitrogen [Mass/Vol] 60.0 mg/dL High 8.0-22.0 [facility] ([place] Comment on above: Performed By: #### M ORPH, CAION, BMP, FERR, DIFF, GFR, CBC, FES ####[place] [address] CAIONon 04-25-2024 Calcium Ionized 1.06 mmol/L Low 1.12-1.32 [facility] ([place] Comment on above: Result Comment: Spec imen volume is less than recommended minimum for accurate testing. interpret with caution. Performed By: #### M ORPH, CAION, BMP, FERR, DIFF, GFR, CBC, FES ####[place] [address] CBCon 04-25-2024 Erythrocyte distribution width (RBC) [Ratio] 16.6 % High 11.5-15.5 [facility] ([place] Comment on above: Performed By: #### M ORPH, CAION, BMP, FERR, DIFF, GFR, CBC, FES ####[place] [address] Hematocrit (Bld) [Volume fraction] 23.9 % Low 40.0-52.0 [facility] [place] Comment on above: Performed By: #### M ORPH, CAION, BMP, FERR, DIFF, GFR, CBC, FES ####[place] [address] Hgb 7.9 G/dL Low 13.0-17.5 [facility] ([place] Comment on above: Performed By: #### M ORPH, CAION, BMP, FERR, DIFF, GFR, CBC, FES ####[place] [address] MCH (RBC) [Entitic mass] 27.0 pg Normal 27.0-33.0 [facility] ([place] Comment on above: Performed By: #### M ORPH, CAION, BMP, FERR, DIFF, GFR, CBC, FES ####[place] [address] MCHC 33.2 G/dL Normal 32.0-36.0 [facility] ([place] Comment on above: Performed By: #### M ORPH, CAION, BMP, FERR, DIFF, GFR, CBC, FES ####[place] [address] MCV (RBC) [Entitic vol] 81.3 fL Normal 81.0-100.0 [facility] ([place] Comment on above: Performed By: #### M ORPH, CAION, BMP, FERR, DIFF, GFR, CBC, FES ####[place] [address] Platelet 445 10 3/mcL Normal 150-450 [facility] ([place] Comment on above: Performed By: #### M ORPH, CAION, BMP, FERR, DIFF, GFR, CBC, FES ####[place] [address] Platelet mean volume (Bld) [Entitic vol] 9.8 fL Normal 6.4-10.5 [facility] [place] Comment on above: Performed By: #### M ORPH, CAION, BMP, FERR, DIFF, GFR, CBC, FES ####[place] [address] RBC 2.94 10 6/mcL Low 4.50-6.00 [facility] ([place] Comment on above: Performed By: #### M ORPH, CAION, BMP, FERR, DIFF, GFR, CBC, FES ####[place] [address] WBC 17.4 10 3/mcL High 4.5-10.8 [facility] ([place] Comment on above: Performed By: #### M ORPH, CAION, BMP, FERR, DIFF, GFR, CBC, FES ####[place] [address] Partha 04-25-2024 Ferritin [Mass/Vol] 721.1 ng/mL High 26.0-388.0 [facility] [place] Comment on above: Performed By: #### M ORPH, CAION, BMP, FERR, DIFF, GFR, CBC, FES ####[place] [address] FESon 04-25-2024 Iron [Mass/Vol] 30 ug/dL Low 65-175 [facility] ([place] Comment on above: Performed By: #### M ORPH, CAION, BMP, FERR, DIFF, GFR, CBC, FES ####[place] [address] Iron Sat 17 % Normal [facility] ([place] Comment on above: Performed By: #### M ORPH, CAION, BMP, FERR, DIFF, GFR, CBC, FES ####[place] [address] TIBC 180 mcg/dL Low 250-500 [facility] ([place] Comment on above: Performed By: #### M ORPH, CAION, BMP, FERR, DIFF, GFR, CBC, FES ####[place] [address] HHon 04-25-2024 Hematocrit (Bld) [Volume fraction] 28.6 % Low 40.0-52.0 [facility] ([place] Comment on above: Performed By: #### H H ####[place] [address] Hgb 9.1 G/dL Low 13.0-17.5 [facility] ([place] Comment on above: Performed By: #### H H ####[place] [address] LABORATORYOrdered By: Roosevelt Peterson on 04-25-2024 BE [...] 04-25-2024 BE Venous -7.8 mmol/L Low -3.0-3.0 [facility] ([place] Comment on above: Performed By: #### V ####[facility] [place] [id number] CO2 [Moles/Vol] 18.1 mmol/L Low 22.0-32.0 [facility] ([place] Comment on above: Performed By: #### V BG ####[place] [address] HCO3 (Bld) [Moles/Vol] 17.1 mmol/L Low 21.0-30.0 [facility] ([place]) Comment on above: Performed By: #### V BG ####[place] [address] Oxygen saturation in Blood 94.0 % High 70.0-75.0 [facility] ([place] Comment on above: Performed By: #### V BG ####[place] [address] pCO2 Giuliano 32.3 mmHg Low 41.0-51.0 [facility] ([place] Comment on above: Performed By: #### V BG ####[place] [address] pH Venous 7.341 Low 7.380-7.46 0 [facility] ([place] Comment on above: Performed By: #### V BG ####[place] [address] pO2 Giuliano 77.1 mmHg High 35.0-40.0 [facility] ([place] Comment on above: Performed By: #### V BG ####[place] [address] .GFRon 04-24-2024 GFR 32 ml/min/1.73sqm Normal [facility] ([place] Comment on above: Result Comment: GFR Population [...] BC, GFR, DIFF, MORPH, BMP, PHOS, MG ####[place] [address] GFR Non- 26 ml/min/1.73sqm Normal [facility] ([place] Comment on above: Result Comment: GFR Population [...] BC, GFR, DIFF, MORPH, BMP, PHOS, MG ####[place] [address] .Manual Diffon 04-24-2024 Bands 1.0 % Normal 0.0-5.0 [facility] ([place] Comment on above: Performed By: #### M ORPH, CBC, DIFF ####[place] [address] Basophil %, Manual 0.0 % Normal 0.0-2.5 On license of [facility] ([place]) Comment on above: Performed By: #### M ORPH, CBC, DIFF ####[place] [address] Basophil, Abs Manual 0.0 10 3/mcL Normal 0.0-0.3 [facility] ([place]) Comment on above: Performed By: #### M ORPH, CBC, DIFF ####[place] [address] Eosinophil %, Manual 2.0 % Normal 0.0-6.0 [facility] ([place] Comment on above: Performed By: #### M ORPH, CBC, DIFF ####[place] [address] [place], [place] [address] Eosinophil, Abs Manual 0.3 10 3/mcL Normal 0.0-0.7 [facility] ([place] Comment on above: Performed By: #### M ORPH, CBC, DIFF ####[address] [address] Lymphocyte %, Manual 15.0 % Low 20.0-40.0 [facility] ([place] Comment on above: Performed By: #### M ORPH, CBC, DIFF ####[address] [address] Lymphocyte, Abs Manual 2.7 10 3/mcL Normal 0.9-4.3 [facility] ([place] Comment on above: Performed By: #### M ORPH, CBC, DIFF ####[address] [address] Monocyte %, Manual 10.0 % Normal 2.0-13.0 On license of [facility] ([place] Comment on above: Performed By: #### M ORPH, CBC, DIFF ####[address] [address] Monocyte, Abs Manual 1.8 10 3/mcL High 0.1-1.4 [facility] ([place] Comment on above: Performed By: #### M ORPH, CBC, DIFF ####[address] [address] Myelocyte 2.0 % Normal [facility] ([place] Comment on above: Performed By: #### M ORPH, CBC, DIFF ####[address] [address] Neutrophil %, Manual 70.0 % Normal 50.0-75.0 [facility] ([place] Comment on above: Performed By: #### M ORPH, CBC, DIFF ####[address] [address] Neutrophil, Abs Manual 12.7 10 3/mcL High 2.3-8.1 [facility] ([place] Comment on above: Performed By: #### M ORPH, CBC, DIFF ####[address] [address] Nucleated RBC 0.0 /100 WBC Normal [facility] ([place] Comment on above: Performed By: #### M ORPH, CBC, DIFF ####[address] [address] Bands 1.0 % Normal 0.0-5.0 [facility] ([place] Comment on above: Performed By: #### D IFF, CBC, MORPH, PRO ####[address] [address] Basophil %, Manual 0.0 % Normal 0.0-2.5 On license of [facility] ([place] Comment on above: Performed By: #### D IFF, CBC, MORPH, PRO ####[address] [address] Basophil, Abs Manual 0.0 10 3/mcL Normal 0.0-0.3 [facility] ([place] Comment on above: Performed By: #### D IFF, CBC, MORPH, PRO ####[address] [address] Eosinophil %, Manual 4.0 % Normal 0.0-6.0 [facility] ([place] Comment on above: Performed By: #### D IFF, CBC, MORPH, PRO ####[address] [address] Eosinophil, Abs Manual 0.9 10 3/mcL High 0.0-0.7 [facility] ([place] Comment on above: Performed By: #### D IFF, CBC, MORPH, PRO ####[address] [address] Lymphocyte %, Manual 11.0 % Low 20.0-40.0 [facility] ([place] Comment on above: Performed By: #### D IFF, CBC, MORPH, PRO ####[address] [address] Lymphocyte, Abs Manual 2.5 10 3/mcL Normal 0.9-4.3 [facility] [place] Comment on above: Performed By: #### D IFF, CBC, MORPH, PRO ####[address] [address] Monocyte %, Manual 3.0 % Normal 2.0-13.0 On license of [facility] ([place] Comment on above: Performed By: #### D IFF, CBC, MORPH, PRO ####[address] [address] Monocyte, Abs Manual 0.7 10 3/mcL Normal 0.1-1.4 [facility] ([place] Comment on above: Performed By: #### D IFF, CBC, MORPH, PRO ####[place] [address] Myelocyte 1.0 % Normal [facility] ([place] Comment on above: Performed By: #### D IFF, CBC, MORPH, PRO ####[place] [address] Neutrophil %, Manual 80.0 % High 50.0-75.0 [facility] ([place] Comment on above: Performed By: #### D IFF, CBC, MORPH, PRO ####[place] [address] Neutrophil, Abs Manual 18.3 10 3/mcL High 2.3-8.1 [facility] ([place] Comment on above: Performed By: #### D IFF, CBC, MORPH, PRO ####[place] [address] Nucleated RBC 0.0 /100 WBC Normal [facility] ([place] Comment on above: Performed By: #### D IFF, CBC, MORPH, PRO ####[place] [address] Bands 5.0 % Normal 0.0-5.0 [facility] ([place] Comment on above: Performed By: #### C BC, GFR, DIFF, MORPH, BMP, PHOS, MG ####[place] [address] Basophil %, Manual 0.0 % Normal 0.0-2.5 On license of [facility] ([place] Comment on above: Performed By: #### C BC, GFR, DIFF, MORPH, BMP, PHOS, MG ####[place] [address] [place], [place] [address] Basophil, Abs Manual 0.0 10 3/mcL Normal 0.0-0.3 [facility] ([place] Comment on above: Performed By: #### C BC, GFR, DIFF, MORPH, BMP, PHOS, MG ####[place] [address] Eosinophil %, Manual 2.0 % Normal 0.0-6.0 [facility] ([place] Comment on above: Performed By: #### C BC, GFR, DIFF, MORPH, BMP, PHOS, MG ####[place] [address] Eosinophil, Abs Manual 0.4 10 3/mcL Normal 0.0-0.7 [facility] ([place] Comment on above: Performed By: #### C BC, GFR, DIFF, MORPH, BMP, PHOS, MG ####[place] [address] Lymphocyte %, Manual 12.0 % Low 20.0-40.0 [facility] ([place] Comment on above: Performed By: #### C BC, GFR, DIFF, MORPH, BMP, PHOS, MG ####[place] [id number] Lymphocyte, Abs Manual 2.3 10 3/mcL Normal 0.9-4.3 [facility] ([place] Comment on above: Performed By: #### C BC, GFR, DIFF, MORPH, BMP, PHOS, MG ####[place] [address] Metamyelocyte 3.0 % Normal [facility] ([place] Comment on above: Performed By: #### C BC, GFR, DIFF, MORPH, BMP, PHOS, MG ####[place] [address] Monocyte %, Manual 7.0 % Normal 2.0-13.0 On license of [facility] ([place] Comment on above: Performed By: #### C BC, GFR, DIFF, MORPH, BMP, PHOS, MG ####[place] [id number] Monocyte, Abs Manual 1.4 10 3/mcL Normal 0.1-1.4 [facility] ([place] Comment on above: Performed By: #### C BC, GFR, DIFF, MORPH, BMP, PHOS, MG ####[place] [address] Neutrophil %, Manual 71.0 % Normal 50.0-75.0 [facility] [place] Comment on above: Performed By: #### C BC, GFR, DIFF, MORPH, BMP, PHOS, MG ####[place] [address] Neutrophil, Abs Manual 14.8 10 3/mcL High 2.3-8.1 [facility] [place] Comment on above: Performed By: #### C BC, GFR, DIFF, MORPH, BMP, PHOS, MG ####[place] [address] Nucleated RBC 0.0 /100 WBC Normal [facility] ([place] Comment on above: Performed By: #### C BC, GFR, DIFF, MORPH, BMP, PHOS, MG ####[place] [address] .Morphon 04-24-2024 Anisocytosis Ql (Bld) 1+ Normal [facility] ([place] Comment on above: Performed By: #### M ORPH, CBC, DIFF ####[place] [address] Platelet Estimate Slt Increased Normal [facility] ([place] Comment on above: Performed By: #### M ORPH, CBC, DIFF ####[place] [address] Toxic Gran 1+ Normal [facility] ([place] Comment on above: Performed By: #### M ORPH, CBC, DIFF ####[place] [address] Anisocytosis Ql (Bld) 1+ Normal [facility] [place] Comment on above: Performed By: #### D IFF, CBC, MORPH, PRO ####[place] [address] Large Platelets Few Normal [facility] [place] Comment on above: Performed By: #### D IFF, CBC, MORPH, PRO ####[address] [address] Platelet Estimate Slt Increased Normal [facility] ([place] Comment on above: Performed By: #### D IFF, CBC, MORPH, PRO ####[address] [address] Polychrom 1+ Normal [facility] ([place] Comment on above: Performed By: #### D IFF, CBC, MORPH, PRO ####[address] [address] Toxic Gran 1+ Normal [facility] ([place] Comment on above: Performed By: #### D IFF, CBC, MORPH, PRO ####[place] [address] RBC morphology finding Nom (Bld) Normal Normal [facility]) Comment on above: Performed By: #### C BC, GFR, DIFF, MORPH, BMP, PHOS, MG ####[place] [address] Platelet Estimate Normal Normal [facility] ([place] Comment on above: Performed By: #### C BC, GFR, DIFF, MORPH, BMP, PHOS, MG ####[place] [address] APTTon 04-24-2024 aPTT Coag (Bld) [Time] 34.0 s Normal 25.0-35.0 [facility] ([place] Comment on above: Result Comment: For Heparin anticoagulation therapy, the recommendedtherapeutic range is: 54-77 seconds (APTT Correlationwith Anti-Xa therapeutic range of 0.3-0.7 units/ml).PLEASE REFERENCE THE PHARMACY PROTOCOL FOR DOSING. Heparin dose (APTT) Heparin IV Normal [facility] ([place] aPTT Coag (Bld) [Time] 36.5 s High 25.0-35.0 [facility] ([place] Comment on above: Result Comment: Spec imen hemolyzed. Results may be affected.For Heparin anticoagulation therapy, the recommendedtherapeutic range is: 54-77 seconds (APTT Correlationwith Anti-Xa therapeutic range of 0.3-0.7 units/ml).PLEASE REFERENCE THE PHARMACY PROTOCOL FOR DOSING. Performed By: #### D IFF, CBC, MORPH, PRO ####[address] [address] Heparin dose (APTT) Heparin SubQ Normal [facility] ([place] Comment on above: Performed By: #### D IFF, CBC, MORPH, PRO ####[address] [address] BMPon 04-24-2024 BUN/Creatinine Ratio 26.3 ratio High 10.0-22.0 [facility] ([place] Comment on above: Performed By: #### C BC, GFR, DIFF, MORPH, BMP, PHOS, MG ####[place] [address] Calcium [Mass/Vol] 7.8 mg/dL Low 8.7-10.4 On license of [facility] ([place] Comment on above: Performed By: #### C BC, GFR, DIFF, MORPH, BMP, PHOS, MG ####[place] [id number] Chloride [Moles/Vol] 104 mmol/L Normal 98-110 [facility] ([place] Comment on above: Performed By: #### C BC, GFR, DIFF, MORPH, BMP, PHOS, MG ####[place] [id number] CO2 [Moles/Vol] 20 mmol/L Low 22-32 [facility] [place] Comment on above: Performed By: #### C BC, GFR, DIFF, MORPH, BMP, PHOS, MG ####[place] [id number] Creatinine [Mass/Vol] 2.62 mg/dL High 0.60-1.40 [facility] ([place] Comment on above: Performed By: #### C BC, GFR, DIFF, MORPH, BMP, PHOS, MG ####[place] [id number] Electrolyte Balance 11.0 mEq/L Normal 4.0-15.0 [facility] ([place] Comment on above: Performed By: #### C BC, GFR, DIFF, MORPH, BMP, PHOS, MG ####[address] [address] Glucose [Mass/Vol] 116 mg/dL High 70-110 On license of [facility] ([place] Comment on above: Performed By: #### C BC, GFR, DIFF, MORPH, BMP, PHOS, MG ####[address] [address] Potassium [Moles/Vol] 4.7 mmol/L Normal 3.5-5.0 [facility] ([place] Comment on above: Performed By: #### C BC, GFR, DIFF, MORPH, BMP, PHOS, MG ####[place] [address] Sodium [Moles/Vol] 135 mmol/L Low 136-145 On license of [facility] ([place] Comment on above: Performed By: #### C BC, GFR, DIFF, MORPH, BMP, PHOS, MG ####[place] [address] Urea nitrogen [Mass/Vol] 69.0 mg/dL High 8.0-22.0 [facility] ([place] Comment on above: Performed By: #### C BC, GFR, DIFF, MORPH, BMP, PHOS, MG ####[address] [address] CBCon 04-24-2024 Erythrocyte distribution width (RBC) [Ratio] 16.8 % High 11.5-15.5 [facility] [place] Comment on above: Performed By: #### M ORPH, CBC, DIFF ####[address] [address] Hematocrit (Bld) [Volume fraction] 26.6 % Low 40.0-52.0 [facility] [place] Comment on above: Performed By: #### M ORPH, CBC, DIFF ####[address] [address] Hgb 8.4 G/dL Low 13.0-17.5 [facility] ([place] Comment on above: Performed By: #### M ORPH, CBC, DIFF ####[address] [address] MCH (RBC) [Entitic mass] 25.6 pg Low 27.0-33.0 [facility] ([place] Comment on above: Performed By: #### M ORPH, CBC, DIFF ####[address] [address] MCHC 31.5 G/dL Low 32.0-36.0 [facility] ([place] Comment on above: Performed By: #### M ORPH, CBC, DIFF ####[address] [address] MCV (RBC) [Entitic vol] 81.5 fL Normal 81.0-100.0 [facility] ([place] Comment on above: Performed By: #### M ORPH, CBC, DIFF ####[place] [address] Platelet 458 10 3/mcL High 150-450 [facility] ([place] Comment on above: Performed By: #### M ORPH, CBC, DIFF ####[place] [address] Platelet mean volume (Bld) [Entitic vol] 10.0 fL Normal 6.4-10.5 [facility] ([place] Comment on above: Performed By: #### M ORPH, CBC, DIFF ####[place] [address] RBC 3.26 10 6/mcL Low 4.50-6.00 [facility] ([place] Comment on above: Performed By: #### M ORPH, CBC, DIFF ####[place] [address] WBC 17.9 10 3/mcL High 4.5-10.8 [facility] ([place] Comment on above: Performed By: #### M ORPH, CBC, DIFF ####[place] [address] Erythrocyte distribution width (RBC) [Ratio] 16.7 % High 11.5-15.5 [facility] ([place] Comment on above: Performed By: #### D IFF, CBC, MORPH, PRO ####[place] [address] Hematocrit (Bld) [Volume fraction] 23.5 % Low 40.0-52.0 [facility] ([place] Comment on above: Performed By: #### D IFF, CBC, MORPH, PRO ####[place] [address] Hgb 7.6 G/dL Low 13.0-17.5 [facility] ([place] Comment on above: Performed By: #### D IFF, CBC, MORPH, PRO ####[place] [address] MCH (RBC) [Entitic mass] 26.1 pg Low 27.0-33.0 [facility] ([place] Comment on above: Performed By: #### D IFF, CBC, MORPH, PRO ####[place] [address] MCHC 32.2 G/dL Normal 32.0-36.0 [facility] ([place] Comment on above: Performed By: #### D IFF, CBC, MORPH, PRO ####[place] [address] MCV (RBC) [Entitic vol] 81.1 fL Normal 81.0-100.0 [facility] ([place] Comment on above: Performed By: #### D IFF, CBC, MORPH, PRO ####[place] [address] Platelet 495 10 3/mcL High 150-450 [facility] ([place] Comment on above: Performed By: #### D IFF, CBC, MORPH, PRO ####[place] [address] Platelet mean volume (Bld) [Entitic vol] 9.7 fL Normal 6.4-10.5 [facility] ([place] Comment on above: Performed By: #### D IFF, CBC, MORPH, PRO ####[address] [address] RBC 2.90 10 6/mcL Low 4.50-6.00 [facility] ([place] Comment on above: Performed By: #### D IFF, CBC, MORPH, PRO ####[place] [address] WBC 22.6 10 3/mcL High 4.5-10.8 [facility] ([place] Comment on above: Performed By: #### D IFF, CBC, MORPH, PRO ####[place] [address] Erythrocyte distribution width (RBC) [Ratio] 16.3 % High 11.5-15.5 [facility] ([place] Comment on above: Performed By: #### C BC, GFR, DIFF, MORPH, BMP, PHOS, MG ####[place] [address] Hematocrit (Bld) [Volume fraction] 26.0 % Low 40.0-52.0 [facility] [place] Comment on above: Performed By: #### C BC, GFR, DIFF, MORPH, BMP, PHOS, MG ####[place] [address] Hgb 8.4 G/dL Low 13.0-17.5 [facility] ([place] Comment on above: Performed By: #### C BC, GFR, DIFF, MORPH, BMP, PHOS, MG ####[place] [address] MCH (RBC) [Entitic mass] 26.3 pg Low 27.0-33.0 [facility] ([place] Comment on above: Performed By: #### C BC, GFR, DIFF, MORPH, BMP, PHOS, MG ####[place] [address] MCHC 32.5 G/dL Normal 32.0-36.0 [facility] ([place] Comment on above: Performed By: #### C BC, GFR, DIFF, MORPH, BMP, PHOS, MG ####[place] [address] MCV (RBC) [Entitic vol] 81.0 fL Normal 81.0-100.0 [facility] ([place] Comment on above: Performed By: #### C BC, GFR, DIFF, MORPH, BMP, PHOS, MG ####[address] [address] Platelet 433 10 3/mcL Normal 150-450 [facility] ([place] Comment on above: Performed By: #### C BC, GFR, DIFF, MORPH, BMP, PHOS, MG ####[place] [address] Platelet mean volume (Bld) [Entitic vol] 9.9 fL Normal 6.4-10.5 [facility] ([place] Comment on above: Performed By: #### C BC, GFR, DIFF, MORPH, BMP, PHOS, MG ####[place] [address] RBC 3.21 10 6/mcL Low 4.50-6.00 [facility] ([place] Comment on above: Performed By: #### C BC, GFR, DIFF, MORPH, BMP, PHOS, MG ####[place] [address] WBC 19.6 10 3/mcL High 4.5-10.8 [facility] ([place] Comment on above: Performed By: #### C BC, GFR, DIFF, MORPH, BMP, PHOS, MG ####[address] [address] [address] ABDOMEN/PELVIS W/O CONTRA STon 04-24-2024 CT ABDOMEN/PELVIS W/O CONTRAST Normal [facility] ([place]) CT THORAX W/O CONTRASTon CT THORAX W/O CONTRAST Normal [facility] ([place]) LABORATORYOrdered By: SYSTEM SYSTEM on 04-24-2024 Myelocytes/100 WBC (Bld) 2.0 % Invalid Interpretation Code Workflow SS Toxic Gran 1+ *NA* (04/24/24 6:27 PM) Invalid Interpretation Code Workflow SS Large Platelets Few *NA* (04/24/24 8:53 AM) Invalid Interpretation Code Workflow SS Myelocytes/100 WBC (Bld) 1.0 % Invalid Interpretation Code Workflow SS Toxic Gran 1+ *NA* (04/24/24 8:53 AM) Invalid Interpretation Code Workflow SS Metamyelocytes/100 WBC (Bld) 3.0 % Invalid Interpretation Code Workflow SS RBC morphology finding Nom (Bld) Normal *NA* (04/24/24 3:23 AM) Invalid Interpretation Code Workflow SS LABORATORYOrdered By: Ha Pearson on 04-24-2024 PT Coag (PPP) [Time] 15.6 s High 9.0 - 1 4.4 seconds AH [facility] SS Comment on above: Result Comment: Spec imen hemolyzed. Results may be affected. Interpretive Data: E ffective 06/02/08, Protime results may be affected by some antibiotics (i.e. Ciprofloxacin, Azithromycin, Bactrim) which may potentiate the action of oral anticoagulants, with further increases in Protime/INR. PT International Ratio 1.4 ratio Invalid Interpretation Code [facility] SS Comment on above: Result Comment: Spec imen hemolyzed. Results may be affected. Interpretive Data: Simon briones [employer] (CHEST, 1992, 102:312S-25S) recommended therapeutic range for oral anticoagulant therapy is: LOW RISK: Prophylaxis of venous thrombosis INR: 2.0-3.0 Treatment of pulmonary embolism 2.0-3.0 Prevention of systemic embolism 2.0-3.0 HIGH RISK: Mechanical prosthetic valves 2.5-3.5 MGon 04-24-2024 Magnesium [Mass/Vol] 2.1 mg/dL Normal 1.6-2.4 [facility] ([place] Comment on above: Performed By: #### C BC, GFR, DIFF, MORPH, BMP, PHOS, MG ####[address] [address] PHOSon 04-24-2024 Phosphate [Mass/Vol] 5.0 mg/dL Normal 2.4-5.1 [facility] ([place] Comment on above: Result Comment: No te - New Reference Range in effect 20 Performed By: #### C BC, GFR, DIFF, MORPH, BMP, PHOS, MG ####[address] [address] PROon 04-24-2024 INR Coag (PPP) [Relative time] 1.4 {INR} Normal [facility] ([place] Comment on above: Result Comment: Spec imen hemolyzed. Results may be affected.[employer] (CHEST, 1992, [id number])recommended therapeutic range for oral anticoagulant therapy is:LOW RISK: Prophylaxis of venous thrombosis INR: 2.0-3.0 Treatment of pulmonary embolism 2.0-3.0 Prevention of systemic embolism 2.0-3.0HIGH RISK: Mechanical prosthetic valves 2.5-3.5 Performed By: #### D IFF, CBC, MORPH, PRO ####[place] [id number] [address] [place] [id number] PT Coag (PPP) [Time] 15.6 s High 9.0-14.4 [facility] ([place] Comment on above: Result Comment: Spec imen hemolyzed. Results may be affected.Effective 06/02/08, Protime results may be affected by some antibiotics (i.e. Ciprofloxacin, Azithromycin, Bactrim) which may potentiate the action of oral anticoagulants, with further increases in Protime/INR. Performed By: #### D IFF, CBC, MORPH, PRO ####[address] [address] .GFRon 04-23-2024 GFR Non- 26 ml/min/1.73sqm Normal [facility] ([place] Comment on above: Result Comment: GFR Population [...] MORPH, MG, DIFF, CBC, CAION, PHOS, BMP ####[address] [address] GFR 32 ml/min/1.73sqm Normal [facility] ([place] Comment on above: Result Comment: GFR Population [...] MORPH, MG, DIFF, CBC, CAION, PHOS, BMP ####[place] [address] .Manual Diffon 04-23-2024 Bands 9.0 % High 0.0-5.0 [facility] ([place] Comment on above: Performed By: #### G FR, MORPH, MG, DIFF, CBC, CAION, PHOS, BMP ####[place] [address] Basophil %, Manual 0.0 % Normal 0.0-2.5 On license of [facility] ([place] Comment on above: Performed By: #### G FR, MORPH, MG, DIFF, CBC, CAION, PHOS, BMP ####[place] [address] Basophil, Abs Manual 0.0 10 3/mcL Normal 0.0-0.3 [facility] ([place] Comment on above: Performed By: #### G FR, MORPH, MG, DIFF, CBC, CAION, PHOS, BMP ####[place] [address] Eosinophil %, Manual 0.0 % Normal 0.0-6.0 [facility] ([place] Comment on above: Performed By: #### G FR, MORPH, MG, DIFF, CBC, CAION, PHOS, BMP ####[address] [address] Eosinophil, Abs Manual 0.0 10 3/mcL Normal 0.0-0.7 [facility] ([place] Comment on above: Performed By: #### G FR, MORPH, MG, DIFF, CBC, CAION, PHOS, BMP ####[address] [address] Lymphocyte %, Manual 14.0 % Low 20.0-40.0 [facility] ([place] Comment on above: Performed By: #### G FR, MORPH, MG, DIFF, CBC, CAION, PHOS, BMP ####[address] [address] Lymphocyte, Abs Manual 3.2 10 3/mcL Normal 0.9-4.3 [facility] ([place] Comment on above: Performed By: #### G FR, MORPH, MG, DIFF, CBC, CAION, PHOS, BMP ####[address] [address] Metamyelocyte 2.0 % Normal [facility] ([place]) Comment on above: Performed By: #### G FR, MORPH, MG, DIFF, CBC, CAION, PHOS, BMP ####[address] [address] Monocyte %, Manual 6.0 % Normal 2.0-13.0 On license of [facility] ([place] Comment on above: Performed By: #### G FR, MORPH, MG, DIFF, CBC, CAION, PHOS, BMP ####[address] [address] Monocyte, Abs Manual 1.3 10 3/mcL Normal 0.1-1.4 [facility] ([place] Comment on above: Performed By: #### G FR, MORPH, MG, DIFF, CBC, CAION, PHOS, BMP ####[address] [address] Neutrophil %, Manual 69.0 % Normal 50.0-75.0 [facility] ([place] Comment on above: Performed By: #### G FR, MORPH, MG, DIFF, CBC, CAION, PHOS, BMP ####[place] [address] Neutrophil, Abs Manual 17.5 10 3/mcL High 2.3-8.1 [facility] ([place] Comment on above: Performed By: #### G FR, MORPH, MG, DIFF, CBC, CAION, PHOS, BMP ####[place] [address] Nucleated RBC 0.0 /100 WBC Normal [facility] ([place] Comment on above: Performed By: #### G FR, MORPH, MG, DIFF, CBC, CAION, PHOS, BMP ####[place] [address] .Morphon 04-23-2024 Anisocytosis Ql (Bld) 1+ Normal [facility] ([place]) Comment on above: Performed By: #### G FR, MORPH, MG, DIFF, CBC, CAION, PHOS, BMP ####[place] [address] Ovalocytes 1+ Normal [facility] ([place] Comment on above: Performed By: #### G FR, MORPH, MG, DIFF, CBC, CAION, PHOS, BMP ####[place] [address] Platelet Estimate Normal Normal [facility] ([place] Comment on above: Performed By: #### G FR, MORPH, MG, DIFF, CBC, CAION, PHOS, BMP ####[place] [address] Polychrom 1+ Normal [facility] ([place] Comment on above: Performed By: #### G FR, MORPH, MG, DIFF, CBC, CAION, PHOS, BMP ####[place] [address] Target Cell 1+ Normal [facility] ([place] Comment on above: Performed By: #### G FR, MORPH, MG, DIFF, CBC, CAION, PHOS, BMP ####[place] [id number] Toxic Gran 1+ Normal [facility] ([place] Comment on above: Performed By: #### G FR, MORPH, MG, DIFF, CBC, CAION, PHOS, BMP ####[place] [address] BMPon 04-23-2024 BUN/Creatinine Ratio 26.1 ratio High 10.0-22.0 [facility] ([place] Comment on above: Performed By: #### G FR, MORPH, MG, DIFF, CBC, CAION, PHOS, BMP ####[place] [address] Calcium [Mass/Vol] 7.7 mg/dL Low 8.7-10.4 On license of [facility] ([place]) Comment on above: Performed By: #### G FR, MORPH, MG, DIFF, CBC, CAION, PHOS, BMP ####[place] [address] Chloride [Moles/Vol] 103 mmol/L Normal 98-110 [facility] ([place] Comment on above: Performed By: #### G FR, MORPH, MG, DIFF, CBC, CAION, PHOS, BMP ####[place] [address] CO2 [Moles/Vol] 20 mmol/L Low 22-32 [facility] ([place] Comment on above: Performed By: #### G FR, MORPH, MG, DIFF, CBC, CAION, PHOS, BMP ####[place] [address] Creatinine [Mass/Vol] 2.61 mg/dL High 0.60-1.40 [facility] ([place] Comment on above: Performed By: #### G FR, MORPH, MG, DIFF, CBC, CAION, PHOS, BMP ####[place] [address] Electrolyte Balance 10.0 mEq/L Normal 4.0-15.0 [facility] ([place] Comment on above: Performed By: #### G FR, MORPH, MG, DIFF, CBC, CAION, PHOS, BMP ####[address] [address] Glucose [Mass/Vol] 190 mg/dL High 70-110 On license of [facility] ([place] Comment on above: Performed By: #### G FR, MORPH, MG, DIFF, CBC, CAION, PHOS, BMP ####[address] [address] Potassium [Moles/Vol] 4.8 mmol/L Normal 3.5-5.0 [facility] ([place] Comment on above: Performed By: #### G FR, MORPH, MG, DIFF, CBC, CAION, PHOS, BMP ####[place] [address] Sodium [Moles/Vol] 133 mmol/L Low 136-145 On license of [facility] ([place] Comment on above: Performed By: #### G FR, MORPH, MG, DIFF, CBC, CAION, PHOS, BMP ####[place] [address] Urea nitrogen [Mass/Vol] 68.0 mg/dL High 8.0-22.0 [facility] [place] Comment on above: Performed By: #### G FR, MORPH, MG, DIFF, CBC, CAION, PHOS, BMP ####[place] [address] CAIONon 04-23-2024 Calcium Ionized 1.04 mmol/L Low 1.12-1.32 [facility] ([place] Comment on above: Performed By: #### G FR, MORPH, MG, DIFF, CBC, CAION, PHOS, BMP ####[place] [address] CBCon 04-23-2024 Erythrocyte distribution width (RBC) [Ratio] 16.6 % High 11.5-15.5 [facility] ([place] Comment on above: Performed By: #### G FR, MORPH, MG, DIFF, CBC, CAION, PHOS, BMP ####[place] [address] Hematocrit (Bld) [Volume fraction] 25.3 % Low 40.0-52.0 [facility] [place] Comment on above: Performed By: #### G FR, MORPH, MG, DIFF, CBC, CAION, PHOS, BMP ####[place] [address] Hgb 8.3 G/dL Low 13.0-17.5 [facility] [place] Comment on above: Performed By: #### G FR, MORPH, MG, DIFF, CBC, CAION, PHOS, BMP ####[place] [address] MCH (RBC) [Entitic mass] 26.5 pg Low 27.0-33.0 [facility] [place] Comment on above: Performed By: #### G FR, MORPH, MG, DIFF, CBC, CAION, PHOS, BMP ####[place] [address] MCHC 32.7 G/dL Normal 32.0-36.0 [facility] [place] Comment on above: Performed By: #### G FR, MORPH, MG, DIFF, CBC, CAION, PHOS, BMP ####[place] [address] MCV (RBC) [Entitic vol] 80.8 fL Low 81.0-100.0 [facility] ([place] Comment on above: Performed By: #### G FR, MORPH, MG, DIFF, CBC, CAION, PHOS, BMP ####[place] [address] Platelet 410 10 3/mcL Normal 150-450 [facility] ([place] Comment on above: Performed By: #### G FR, MORPH, MG, DIFF, CBC, CAION, PHOS, BMP ####[place] [address] Platelet mean volume (Bld) [Entitic vol] 9.3 fL Normal 6.4-10.5 [facility] [place] Comment on above: Performed By: #### G FR, MORPH, MG, DIFF, CBC, CAION, PHOS, BMP ####[place] [address] RBC 3.13 10 6/mcL Low 4.50-6.00 [facility] ([place] Comment on above: Performed By: #### G FR, MORPH, MG, DIFF, CBC, CAION, PHOS, BMP ####[place] [address] WBC 22.5 10 3/mcL High 4.5-10.8 [facility] ([place] Comment on above: Performed By: #### G FR, MORPH, MG, DIFF, CBC, CAION, PHOS, BMP ####[place] [address] LABORATORYOrdered By: Yamel Carlos on 04-23-2024 Calcium Ionized 1.04 mmol/L Low 1.12 - 1.32 mmol/L AH Main Rapid Comm SS LABORATORYOrdered By: SYSTEM SYSTEM on 04-23-2024 Metamyelocytes/100 WBC (Bld) 2.0 % Invalid Interpretation Code AH Workflow SS Ovalocytes LM Ql (Bld) 1+ *NA* (04/23/24 4:10 AM) Invalid Interpretation Code AH Workflow SS Target Cell 1+ *NA* (04/23/24 4:10 AM) Invalid Interpretation Code AH Workflow SS MGon 04-23-2024 Magnesium [Mass/Vol] 2.2 mg/dL Normal 1.6-2.4 [facility] ([place] Comment on above: Performed By: #### G FR, MORPH, MG, DIFF, CBC, CAION, PHOS, BMP ####[place] [address] PHOSon 04-23-2024 Phosphate [Mass/Vol] 4.6 mg/dL Normal 2.4-5.1 [facility] ([place] Comment on above: Result Comment: No te - New Reference Range in effect 20 Performed By: #### G FR, MORPH, MG, DIFF, CBC, CAION, PHOS, BMP ####[place] [address] .Auto Diffon 04-22-2024 Basophil, Absolute 0.1 10 3/mcL Normal 0.0-0.3 [facility] ([place] Comment on above: Performed By: #### B MP, CBC, ANEU, GFR, ADIFF ####[address] [address] Basophils/100 WBC (Bld) 0.3 % Normal 0.0-2.5 [facility] ([place] Comment on above: Performed By: #### B MP, CBC, ANEU, GFR, ADIFF ####[address] [address] Eosinophil, Absolute 0.1 10 3/mcL Normal 0.0-0.7 [facility] ([place] Comment on above: Performed By: #### B MP, CBC, ANEU, GFR, ADIFF ####[address] [address] Eosinophils/100 WBC (Bld) 0.5 % Normal 0.0-6.0 [facility] [place] Comment on above: Performed By: #### B MP, CBC, ANEU, GFR, ADIFF ####[address] [address] Lymphocyte, Absolute 2.0 10 3/mcL Normal 0.9-4.3 [facility] ([place] Comment on above: Performed By: #### B MP, CBC, ANEU, GFR, ADIFF ####[address] [address] Lymphocytes/100 WBC (Bld) 9.8 % Low 20.0-40.0 [facility] [place] Comment on above: Performed By: #### B MP, CBC, ANEU, GFR, ADIFF ####[address] [address] Monocyte, Absolute 1.7 10 3/mcL High 0.1-1.4 [facility] [place] Comment on above: Performed By: #### B MP, CBC, ANEU, GFR, ADIFF ####[address] [address] Monocytes/100 WBC (Bld) 8.4 % Normal 2.0-13.0 [facility] [place] Comment on above: Performed By: #### B MP, CBC, ANEU, GFR, ADIFF ####[address] [address] Neutrophils/100 WBC (Bld) 81.0 % High 50.0-75.0 [facility] [place] Comment on above: Performed By: #### B MP, CBC, ANEU, GFR, ADIFF ####[address] [address] .GFRon 04-22-2024 GFR 32 ml/min/1.73sqm Normal [facility] ([place] Comment on above: Result Comment: GFR Population [...] mL/min/1.73 square meters Performed By: #### P HOS, CAIJULIET, BMP, GFR, MG ####[address] [address] GFR Non- 27 ml/min/1.73sqm Normal [facility] ([place] Comment on above: Result Comment: GFR Population [...] mL/min/1.73 square meters Performed By: #### P HOS, CAION, BMP, GFR, MG ####[place] [address] GFR 32 ml/min/1.73sqm Normal [facility] [place] Comment on above: Result Comment: GFR Population [...] #### B MP, CBC, ANEU, GFR, ADIFF ####[place] [address] GFR Non- 26 ml/min/1.73sqm Normal [facility] [place] Comment on above: Result Comment: GFR Population [...] #### B MP, CBC, ANEU, GFR, ADIFF ####[place] [id number] .NEUABSon 04-22-2024 Neutrophil, Absolute 16.9 10 3/mcL High 2.3-8.1 [facility] [place] Comment on above: Performed By: #### B MP, CBC, ANEU, GFR, ADIFF ####[address] [address] BMPon 04-22-2024 BUN/Creatinine Ratio 23.8 ratio High 10.0-22.0 [facility] [place] Comment on above: Performed By: #### P HOS, CAION, BMP, GFR, MG ####[place] [address] Calcium [Mass/Vol] 7.8 mg/dL Low 8.7-10.4 On license of [facility] ([place] Comment on above: Performed By: #### P HOS, CAION, BMP, GFR, MG ####[place] [address] Chloride [Moles/Vol] 102 mmol/L Normal 98-110 [facility] [place] Comment on above: Performed By: #### P HOS, CAION, BMP, GFR, MG ####[place] [address] CO2 [Moles/Vol] 24 mmol/L Normal 22-32 [facility] [place] Comment on above: Performed By: #### P HOS, CAION, BMP, GFR, MG ####[place] [address] Creatinine [Mass/Vol] 2.60 mg/dL High 0.60-1.40 [facility] [place] Comment on above: Performed By: #### P HOS, CAION, BMP, GFR, MG ####[place] [address] Electrolyte Balance 6.0 mEq/L Normal 4.0-15.0 [facility] ([place] Comment on above: Performed By: #### P HOS, CAION, BMP, GFR, MG ####[place] [address] Glucose [Mass/Vol] 249 mg/dL High 70-110 On license of [facility] ([place] Comment on above: Performed By: #### P HOS, CAION, BMP, GFR, MG ####[place] [id number] [place] [address] Potassium [Moles/Vol] 3.8 mmol/L Normal 3.5-5.0 [facility] [place] Comment on above: Performed By: #### P HOSROXANAON, BMP, GFR, MG ####[address] [address] Sodium [Moles/Vol] 132 mmol/L Low 136-145 On license of [facility] [place] Comment on above: Performed By: #### P HOS, CAION, BMP, GFR, MG ####[address] [address] Urea nitrogen [Mass/Vol] 62.0 mg/dL High 8.0-22.0 [facility] [place] Comment on above: Performed By: #### P HOSMITCHELL, BMP, GFR, MG ####[address] [address] BUN/Creatinine Ratio 22.4 ratio High 10.0-22.0 [facility] [place] Comment on above: Performed By: #### B MP, CBC, ANEU, GFR, ADIFF ####[address] [address] Calcium [Mass/Vol] 7.9 mg/dL Low 8.7-10.4 On license of [facility] [place] Comment on above: Performed By: #### B MP, CBC, ANEU, GFR, ADIFF ####[address] [address] Chloride [Moles/Vol] 101 mmol/L Normal 98-110 [facility] [place] Comment on above: Performed By: #### B MP, CBC, ANEU, GFR, ADIFF ####[address] [address] CO2 [Moles/Vol] 21 mmol/L Low 22-32 [facility] [place] Comment on above: Performed By: #### B MP, CBC, ANEU, GFR, ADIFF ####[address] [address] Creatinine [Mass/Vol] 2.63 mg/dL High 0.60-1.40 [facility] [place] Comment on above: Performed By: #### B MP, CBC, ANEU, GFR, ADIFF ####[place] [address] Electrolyte Balance 10.0 mEq/L Normal 4.0-15.0 [facility] ([place] Comment on above: Performed By: #### B MP, CBC, ANEU, GFR, ADIFF ####[place] [address] Glucose [Mass/Vol] 256 mg/dL High 70-110 On license of [facility] [place] Comment on above: Performed By: #### B MP, CBC, ANEU, GFR, ADIFF ####[place] [address] Potassium [Moles/Vol] 4.0 mmol/L Normal 3.5-5.0 [facility] [place] Comment on above: Performed By: #### B MP, CBC, ANEU, GFR, ADIFF ####[place] [address] Sodium [Moles/Vol] 132 mmol/L Low 136-145 On license of [facility] [place] Comment on above: Performed By: #### B MP, CBC, ANEU, GFR, ADIFF ####[place] [address] Urea nitrogen [Mass/Vol] 59.0 mg/dL High 8.0-22.0 [facility] [place] Comment on above: Performed By: #### B MP, CBC, ANEU, GFR, ADIFF ####[place] [address] CAIONon 04-22-2024 Calcium Ionized 1.04 mmol/L Low 1.12-1.32 [facility] ([place] Comment on above: Performed By: #### P HOS, CAION, BMP, GFR, MG ####[place] [address] CBCon 04-22-2024 Erythrocyte distribution width (RBC) [Ratio] 16.5 % High 11.5-15.5 [facility] [place] Comment on above: Performed By: #### B MP, CBC, ANEU, GFR, ADIFF ####[place] [address] Hematocrit (Bld) [Volume fraction] 24.2 % Low 40.0-52.0 [facility] [place] Comment on above: Performed By: #### B MP, CBC, ANEU, GFR, ADIFF ####[place] [address] Hgb 8.0 G/dL Low 13.0-17.5 [facility] [place] Comment on above: Performed By: #### B MP, CBC, ANEU, GFR, ADIFF ####[place] [address] MCH (RBC) [Entitic mass] 26.4 pg Low 27.0-33.0 [facility] [place] Comment on above: Performed By: #### B MP, CBC, ANEU, GFR, ADIFF ####[place] [address] MCHC 33.2 G/dL Normal 32.0-36.0 [facility] [place] Comment on above: Performed By: #### B MP, CBC, ANEU, GFR, ADIFF ####[place] [address] MCV (RBC) [Entitic vol] 79.4 fL Low 81.0-100.0 [facility] ([place] Comment on above: Performed By: #### B MP, CBC, ANEU, GFR, ADIFF ####[place] [address] Platelet 355 10 3/mcL Normal 150-450 [facility] [place] Comment on above: Performed By: #### B MP, CBC, ANEU, GFR, ADIFF ####[place] [address] Platelet mean volume (Bld) [Entitic vol] 8.9 fL Normal 6.4-10.5 [facility] [place] Comment on above: Performed By: #### B MP, CBC, ANEU, GFR, ADIFF ####[place] [address] RBC 3.05 10 6/mcL Low 4.50-6.00 [facility] [place] Comment on above: Performed By: #### B MP, CBC, ANEU, GFR, ADIFF ####[place] [address] WBC 20.8 10 3/mcL High 4.5-10.8 [facility] [place] Comment on above: Performed By: #### B MP, CBC, ANEU, GFR, ADIFF ####[place] [address] CRESPon 04-22-2024 CRESP Normal [facility] ([place] HHon 04-22-2024 Hematocrit (Bld) [Volume fraction] 27.1 % Low 40.0-52.0 [facility] [place] Comment on above: Performed By: #### H H, TROPHS ####[place] [address] Hgb 8.9 G/dL Low 13.0-17.5 [facility] [place] Comment on above: Performed By: #### H H, TROPHS ####[place] [address] Rainer 04-22-2024 Potassium [Moles/Vol] 4.0 mmol/L Normal 3.5-5.0 [facility] [place] Comment on above: Performed By: #### P HOS, MG, K ####[place] [address] LABORATORYOrdered By: Samra Cortes on 04-22-2024 Calcium Ionized 1.04 mmol/L Low 1.12 - 1.32 mmol/L AH Main Rapid Comm SS MGon 04-22-2024 Magnesium [Mass/Vol] 1.9 mg/dL Normal 1.6-2.4 [facility] [place] Comment on above: Performed By: #### P HOS, CAION, BMP, GFR, MG ####[place] [address] Magnesium [Mass/Vol] 2.2 mg/dL Normal 1.6-2.4 [facility] [place] Comment on above: Performed By: #### P HOS, MG, K ####[address] [address] PHOSon 04-22-2024 Phosphate [Mass/Vol] 4.5 mg/dL Normal 2.4-5.1 [facility] [place] Comment on above: Result Comment: No te - New Reference Range in effect 20 Performed By: #### P HOS, CAION, BMP, GFR, MG ####[address] [address] Phosphate [Mass/Vol] 5.0 mg/dL Normal 2.4-5.1 [facility] [place] Comment on above: Result Comment: No te - New Reference Range in effect 20 Performed By: #### P HOS, MG, K ####[place] [address] RPRon 04-22-2024 Reagin Ab RPR Ql (S) Non-Reactive Normal Non-Carmel cti ve [facility] ([place]) Comment on above: Result Comment: The RPR [...] CBC, ANEU, HFP, CK, ADIFF, HIV, GFR ####[place] [id number] [address] [place] [address] TROPHSon 04-22-2024 High Sensitivity Troponin I 23 ng/L Normal 0-54 [facility] ([place] Comment on above: Result Comment: High Sensitive Troponin I Reference Ranges:Female: 0-34 ng/LMale: 0-54 ng/LTesting performed on [employer] Medical analyzer using direct chemiluminescent technology. Performed By: #### H H, TROPHS ####[address] [address] XR CHEST 1 VIEWon 04-22-2024 XR CHEST 1 VIEW Normal [facility] ([place] .Auto Diffon 04-21-2024 Basophil, Absolute 0.0 10 3/mcL Normal 0.0-0.3 [facility] [place] Comment on above: Performed By: #### B MP, RPR, HEPAC, CBC, ANEU, HFP, CK, ADIFF, HIV, GFR ####[address] [address] Basophils/100 WBC (Bld) 0.1 % Normal 0.0-2.5 [facility] [place] Comment on above: Performed By: #### B MP, RPR, HEPAC, CBC, ANEU, HFP, CK, ADIFF, HIV, GFR ####[address] [address] Eosinophil, Absolute 0.3 10 3/mcL Normal 0.0-0.7 [facility] ([place] Comment on above: Performed By: #### B MP, RPR, HEPAC, CBC, ANEU, HFP, CK, ADIFF, HIV, GFR ####[address] [address] Eosinophils/100 WBC (Bld) 1.3 % Normal 0.0-6.0 [facility] [place] Comment on above: Performed By: #### B MP, RPR, HEPAC, CBC, ANEU, HFP, CK, ADIFF, HIV, GFR ####[address] [address] Lymphocyte, Absolute 1.4 10 3/mcL Normal 0.9-4.3 [facility] ([place] Comment on above: Performed By: #### B MP, RPR, HEPAC, CBC, ANEU, HFP, CK, ADIFF, HIV, GFR ####[address] [address] Lymphocytes/100 WBC (Bld) 6.4 % Low 20.0-40.0 [facility] [place] Comment on above: Performed By: #### B MP, RPR, HEPAC, CBC, ANEU, HFP, CK, ADIFF, HIV, GFR ####[place] [id number] [address] [place] [address] Monocyte, Absolute 1.9 10 3/mcL High 0.1-1.4 [facility] [place] Comment on above: Performed By: #### B MP, RPR, HEPAC, CBC, ANEU, HFP, CK, ADIFF, HIV, GFR ####[place] [id number] [address] [place] [address] Monocytes/100 WBC (Bld) 8.8 % Normal 2.0-13.0 [facility] ([place]) Comment on above: Performed By: #### B MP, RPR, HEPAC, CBC, ANEU, HFP, CK, ADIFF, HIV, GFR ####[address] [address] Neutrophils/100 WBC (Bld) 83.4 % High 50.0-75.0 [facility] [place] Comment on above: Performed By: #### B MP, RPR, HEPAC, CBC, ANEU, HFP, CK, ADIFF, HIV, GFR ####[address] [address] .GFRon 04-21-2024 GFR 30 ml/min/1.73sqm Normal [facility] [place] Comment on above: Result Comment: GFR Population [...] CBC, ANEU, HFP, CK, ADIFF, HIV, GFR ####[address] [address] GFR Non- 25 ml/min/1.73sqm Normal [facility] [place] Comment on above: Result Comment: GFR Population [...] CBC, ANEU, HFP, CK, ADIFF, HIV, GFR ####[place] [address] .Manual Diffon 04-21-2024 Basophil %, Manual 0.0 % Normal 0.0-2.5 On license of [facility] [place] Comment on above: Performed By: #### D IFF, MORPH, PRO, CBC ####[place] [address] Basophil, Abs Manual 0.0 10 3/mcL Normal 0.0-0.3 [facility] ([place] Comment on above: Performed By: #### D IFF, MORPH, PRO, CBC ####[place] [address] Eosinophil %, Manual 0.0 % Normal 0.0-6.0 [facility] [place] Comment on above: Performed By: #### D IFF, MORPH, PRO, CBC ####[place] [address] Eosinophil, Abs Manual 0.0 10 3/mcL Normal 0.0-0.7 [facility] [place] Comment on above: Performed By: #### D IFF, MORPH, PRO, CBC ####[place] [address] Lymphocyte %, Manual 19.0 % Low 20.0-40.0 [facility] [place] Comment on above: Performed By: #### D IFF, MORPH, PRO, CBC ####[address] [address] Lymphocyte, Abs Manual 3.6 10 3/mcL Normal 0.9-4.3 [facility] [place] Comment on above: Performed By: #### D IFF, MORPH, PRO, CBC ####[place] [address] Monocyte %, Manual 4.0 % Normal 2.0-13.0 On license of [facility] [place] Comment on above: Performed By: #### D IFF, MORPH, PRO, CBC ####[place] [address] Monocyte, Abs Manual 0.7 10 3/mcL Normal 0.1-1.4 [facility] ([place] Comment on above: Performed By: #### D IFF, MORPH, PRO, CBC ####[place] [address] Neutrophil %, Manual 77.0 % High 50.0-75.0 [facility] [place] Comment on above: Performed By: #### D IFF, MORPH, PRO, CBC ####[place] [address] Neutrophil, Abs Manual 14.3 10 3/mcL High 2.3-8.1 [facility] ([place] Comment on above: Performed By: #### D IFF, MORPH, PRO, CBC ####[place] [address] Nucleated RBC 0.0 /100 WBC Normal [facility] ([place] Comment on above: Performed By: #### D IFF, MORPH, PRO, CBC ####[place] [address] .Morphon 04-21-2024 Anisocytosis Ql (Bld) 1+ Normal [facility] [place] Comment on above: Performed By: #### D IFF, MORPH, PRO, CBC ####[address] [address] Large Platelets Few Normal [facility] ([place] Comment on above: Performed By: #### D IFF, MORPH, PRO, CBC ####[address] [address] Platelet Estimate Normal Normal [facility] ([place] Comment on above: Performed By: #### D IFF, MORPH, PRO, CBC ####[place] [address] .NEUABSon 04-21-2024 Neutrophil, Absolute 18.3 10 3/mcL High 2.3-8.1 [facility] ([place] Comment on above: Performed By: #### B MP, RPR, HEPAC, CBC, ANEU, HFP, CK, ADIFF, HIV, GFR ####[place] [address] ABO/Rh (Gel)on 04-21-2024 ABO/Rh Interp Positive Invalid Interpretation Code [facility] [place] Comment on above: Performed By: #### A BSGEL, ABOGEL ####[place] [address] ABS (Gel)on 04-21-2024 ABSC Interp (Gel) Negative Normal [facility] ([place] Comment on above: Performed By: #### A BSGEL, ABOGEL ####[place] [address] APTTon 04-21-2024 aPTT Coag (Bld) [Time] 28.2 s Normal 25.0-35.0 [facility] ([place] Comment on above: Result Comment: For Heparin anticoagulation therapy, the recommendedtherapeutic range is: 54-77 seconds (APTT Correlationwith Anti-Xa therapeutic range of 0.3-0.7 units/ml).PLEASE REFERENCE THE PHARMACY PROTOCOL FOR DOSING. Performed By: #### D IFF, MORPH, PRO, CBC ####[place] [address] Heparin dose (APTT) None Normal [facility] ([place] Comment on above: Performed By: #### D IFF, MORPH, PRO, CBC ####[address] [address] BMPon 04-21-2024 BUN/Creatinine Ratio 23.0 ratio High 10.0-22.0 [facility] ([place] Comment on above: Performed By: #### B MP, RPR, HEPAC, CBC, ANEU, HFP, CK, ADIFF, HIV, GFR ####[address] [address] Calcium [Mass/Vol] 8.0 mg/dL Low 8.7-10.4 On license of [facility] ([place] Comment on above: Performed By: #### B MP, RPR, HEPAC, CBC, ANEU, HFP, CK, ADIFF, HIV, GFR ####[place] [id number] Chloride [Moles/Vol] 101 mmol/L Normal 98-110 [facility] ([place] Comment on above: Performed By: #### B MP, RPR, HEPAC, CBC, ANEU, HFP, CK, ADIFF, HIV, GFR ####[place] [id number] CO2 [Moles/Vol] 24 mmol/L Normal 22-32 [facility] ([place] Comment on above: Performed By: #### B MP, RPR, HEPAC, CBC, ANEU, HFP, CK, ADIFF, HIV, GFR ####[place] [address] Creatinine [Mass/Vol] 2.78 mg/dL High 0.60-1.40 [facility] ([place] Comment on above: Performed By: #### B MP, RPR, HEPAC, CBC, ANEU, HFP, CK, ADIFF, HIV, GFR ####[place] [id number] Electrolyte Balance 11.0 mEq/L Normal 4.0-15.0 [facility]ly [facility] ([place]) Comment on above: Performed By: #### B MP, RPR, HEPAC, CBC, ANEU, HFP, CK, ADIFF, HIV, GFR ####[place] [id number] Glucose [Mass/Vol] 179 mg/dL High 70-110 On license of [facility] ([place]) Comment on above: Performed By: #### B MP, RPR, HEPAC, CBC, ANEU, HFP, CK, ADIFF, HIV, GFR ####[place] [id number] Potassium [Moles/Vol] 3.7 mmol/L Normal 3.5-5.0 [facility] ([place]) Comment on above: Performed By: #### B MP, RPR, HEPAC, CBC, ANEU, HFP, CK, ADIFF, HIV, GFR ####[place] [address] Sodium [Moles/Vol] 136 mmol/L Normal 136-145 On license of [facility] ([place]) Comment on above: Performed By: #### B MP, RPR, HEPAC, CBC, ANEU, HFP, CK, ADIFF, HIV, GFR ####[place] [address] Urea nitrogen [Mass/Vol] 64.0 mg/dL High 8.0-22.0 [facility] ([place]) Comment on above: Performed By: #### B MP, RPR, HEPAC, CBC, ANEU, HFP, CK, ADIFF, HIV, GFR ####[place] [address] CBCon 04-21-2024 Erythrocyte distribution width (RBC) [Ratio] 16.4 % High 11.5-15.5 [facility] ([place]) Comment on above: Performed By: #### D IFF, MORPH, PRO, CBC ####[place] [address] Hematocrit (Bld) [Volume fraction] 20.9 % Low 40.0-52.0 [facility] ([place] Comment on above: Performed By: #### D IFF, MORPH, PRO, CBC ####[place] [id number] Hgb 6.6 G/dL Critically abnormal 13.0-17.5 [facility] ([place] Comment on above: Performed By: #### D IFF, MORPH, PRO, CBC ####[place] [address] MCH (RBC) [Entitic mass] 25.5 pg Low 27.0-33.0 [facility] ([place] Comment on above: Performed By: #### D IFF, MORPH, PRO, CBC ####[place] [address] MCHC 31.4 G/dL Low 32.0-36.0 [facility] ([place] Comment on above: Performed By: #### D IFF, MORPH, PRO, CBC ####[place] [address] MCV (RBC) [Entitic vol] 81.0 fL Normal 81.0-100.0 [facility] ([place]) Comment on above: Performed By: #### D IFF, MORPH, PRO, CBC ####[place] [address] Platelet 357 10 3/mcL Normal 150-450 [facility] ([place] Comment on above: Performed By: #### D IFF, MORPH, PRO, CBC ####[place] [address] Platelet mean volume (Bld) [Entitic vol] 8.8 fL Normal 6.4-10.5 [facility] ([place] Comment on above: Performed By: #### D IFF, MORPH, PRO, CBC ####[place] [address] RBC 2.58 10 6/mcL Low 4.50-6.00 [facility] ([place] Comment on above: Performed By: #### D IFF, MORPH, PRO, CBC ####[place] [address] WBC 18.7 10 3/mcL High 4.5-10.8 [facility] ([place] Comment on above: Performed By: #### D IFF, MORPH, PRO, CBC ####[place] [address] Erythrocyte distribution width (RBC) [Ratio] 16.0 % High 11.5-15.5 [facility] ([place] Comment on above: Performed By: #### B MP, RPR, HEPAC, CBC, ANEU, HFP, CK, ADIFF, HIV, GFR ####[place] [address] Hematocrit (Bld) [Volume fraction] 24.8 % Low 40.0-52.0 [facility] ([place] Comment on above: Performed By: #### B MP, RPR, HEPAC, CBC, ANEU, HFP, CK, ADIFF, HIV, GFR ####[place] [address] Hgb 8.1 G/dL Low 13.0-17.5 [facility] ([place] Comment on above: Performed By: #### B MP, RPR, HEPAC, CBC, ANEU, HFP, CK, ADIFF, HIV, GFR ####[place] [address] MCH (RBC) [Entitic mass] 25.4 pg Low 27.0-33.0 [facility] ([place] Comment on above: Performed By: #### B MP, RPR, HEPAC, CBC, ANEU, HFP, CK, ADIFF, HIV, GFR ####[place] [address] MCHC 32.6 G/dL Normal 32.0-36.0 [facility] ([place] Comment on above: Performed By: #### B MP, RPR, HEPAC, CBC, ANEU, HFP, CK, ADIFF, HIV, GFR ####[place] [address] MCV (RBC) [Entitic vol] 78.1 fL Low 81.0-100.0 [facility] ([place] Comment on above: Performed By: #### B MP, RPR, HEPAC, CBC, ANEU, HFP, CK, ADIFF, HIV, GFR ####[place] [address] Platelet 432 10 3/mcL Normal 150-450 [facility] ([place] Comment on above: Performed By: #### B MP, RPR, HEPAC, CBC, ANEU, HFP, CK, ADIFF, HIV, GFR ####[place] [address] Platelet mean volume (Bld) [Entitic vol] 8.3 fL Normal 6.4-10.5 [facility] ([place] Comment on above: Performed By: #### B MP, RPR, HEPAC, CBC, ANEU, HFP, CK, ADIFF, HIV, GFR ####[place] [address] RBC 3.18 10 6/mcL Low 4.50-6.00 [facility] ([place] Comment on above: Performed By: #### B MP, RPR, HEPAC, CBC, ANEU, HFP, CK, ADIFF, HIV, GFR ####[place] [address] WBC 21.9 10 3/mcL High 4.5-10.8 [facility] ([place] Comment on above: Performed By: #### B MP, RPR, HEPAC, CBC, ANEU, HFP, CK, ADIFF, HIV, GFR ####[place] [address] CBLon 04-21-2024 CBL Normal [facility] ([place]) CKon 04-21-2024 CK [Catalytic activity/Vol] 24 U/L Normal 7-185 [facility] ([place] Comment on above: Performed By: #### B MP, RPR, HEPAC, CBC, ANEU, HFP, CK, ADIFF, HIV, GFR ####[place] [address] CTISSon 04-21-2024 CTISS Normal [facility] ([place] CWDPon 04-21-2024 CWDP Normal [facility] ([place] HEPACon 04-21-2024 Hep A IgM Ab Non-Reactive Normal Non-Reacti ve [facility] ([place] Comment on above: Performed By: #### B MP, RPR, HEPAC, CBC, ANEU, HFP, CK, ADIFF, HIV, GFR ####[place] [address] Hep A IgM Ab Int [facility] ([place]) Comment on above: Result Comment: No s erological evidence of a current Hepatitis A infection.See Interp Performed By: #### B MP, RPR, HEPAC, CBC, ANEU, HFP, CK, ADIFF, HIV, GFR ####[place] [id number] Hep B Core IgM Ab Non-Reactive Normal Non-Reacti [facility] ([place] Comment on above: Performed By: #### B MP, RPR, HEPAC, CBC, ANEU, HFP, CK, ADIFF, HIV, GFR ####[place] [address] Hep B Core IgM Ab Int [facility] ([place]) Comment on above: Result Comment: Samp les with a value < 0.80 Index are considered nonreactive (negative) for IgM antibodies to hepatitis B core antigen.See Interp Performed By: #### B MP, RPR, HEPAC, CBC, ANEU, HFP, CK, ADIFF, HIV, GFR ####[place] [address] Hep B Surf Ag [facility] Comment on above: Performed By: #### B MP, RPR, HEPAC, CBC, ANEU, HFP, CK, ADIFF, HIV, GFR ####[place] [id number] Hep C Ab Non-Reactive [facility] Comment on above: Performed By: #### B MP, RPR, HEPAC, CBC, ANEU, HFP, CK, ADIFF, HIV, GFR ####[place] [address] Hep C Ab Int [facility] ([place] Comment on above: Result Comment: Nonr eactive: [...] CBC, ANEU, HFP, CK, ADIFF, HIV, GFR ####[address] [address] HFPon 04-21-2024 Bili Indirect 0.2 mg/dL Normal 0.1-10.0 [facility] ([place] Comment on above: Performed By: #### B MP, RPR, HEPAC, CBC, ANEU, HFP, CK, ADIFF, HIV, GFR ####[address] [address] Albumin Level 1.2 G/dL Low 3.2-4.8 [facility] ([place] Comment on above: Performed By: #### B MP, RPR, HEPAC, CBC, ANEU, HFP, CK, ADIFF, HIV, GFR ####[place] [address] Albumin/Globulin [Mass ratio] 0.2 {ratio} Low 0.9-1.6 [facility] ([place] Comment on above: Performed By: #### B MP, RPR, HEPAC, CBC, ANEU, HFP, CK, ADIFF, HIV, GFR ####[address] [address] ALP [Catalytic activity/Vol] 386 U/L High 38-126 [facility] ([place] Comment on above: Performed By: #### B MP, RPR, HEPAC, CBC, ANEU, HFP, CK, ADIFF, HIV, GFR ####[address] [address] ALT [Catalytic activity/Vol] 21 U/L Normal 12-55 [facility] ([place] Comment on above: Performed By: #### B MP, RPR, HEPAC, CBC, ANEU, HFP, CK, ADIFF, HIV, GFR ####[address] [address] AST [Catalytic activity/Vol] 23 U/L Normal 8-34 [facility] ([place] Comment on above: Performed By: #### B MP, RPR, HEPAC, CBC, ANEU, HFP, CK, ADIFF, HIV, GFR ####[address] [address] Bili Direct 0.4 mg/dL Normal 0.0-0.4 [facility] ([place] Comment on above: Result Comment: Use of this assay is not recommended for patients undergoing treatment with eltrombopag due to the potential for falsely elevated results. Performed By: #### B MP, RPR, HEPAC, CBC, ANEU, HFP, CK, ADIFF, HIV, GFR ####[place] [address] Bili Total 0.60 mg/dL Normal 0.20-1.20 [facility] ([place] Comment on above: Result Comment: Use of this assay is not recommended for patients undergoing treatment with eltrombopag due to the potential for falsely elevated results. Performed By: #### B MP, RPR, HEPAC, CBC, ANEU, HFP, CK, ADIFF, HIV, GFR ####[place] [address] Globulin 5.2 G/dL High 1.5-3.8 [facility] ([place] Comment on above: Performed By: #### B MP, RPR, HEPAC, CBC, ANEU, HFP, CK, ADIFF, HIV, GFR ####[place] [address] Total Protein 6.4 G/dL Normal 5.7-8.2 [facility] ([place] Comment on above: Result Comment: No te - New Reference Range in effect 20 Performed By: #### B MP, RPR, HEPAC, CBC, ANEU, HFP, CK, ADIFF, HIV, GFR ####[place] [address] HHon 04-21-2024 Hematocrit (Bld) [Volume fraction] 23.5 % Low 40.0-52.0 [facility] ([place] Comment on above: Performed By: #### H H ####[place] [address] Hgb 7.6 G/dL Low 13.0-17.5 [facility] ([place] Comment on above: Performed By: #### H H ####[place] [address] HIVon 04-21-2024 HIV 1/2 Ab Non-Reactive Normal Non-Reacti ve [facility] ([place] Comment on above: Result Comment: Spec imen is negative for anti-HIV-1 and anti-HIV-2. Performed By: #### B MP, RPR, HEPAC, CBC, ANEU, HFP, CK, ADIFF, HIV, GFR ####[place] [address] Rainer 04-21-2024 Potassium [Moles/Vol] 4.1 mmol/L Normal 3.5-5.0 [facility] ([place]) Comment on above: Performed By: #### P HOS, K, TROPHS, MG ####[place] [address] LABORATORYOrdered By: SYSTEM SYSTEM on 04-21-2024 Troponin I.cardiac DL <= 0.01 ng/mL [Mass/Vol] 23 ng/L Normal 0 - 54 ng/L [facility] Comment on above: Interpretive Data: High Sensitive Troponin I Reference Ranges: Female: 0-34 ng/L Male: 0-54 ng/L Testing performed on [employer] IM analyzer using direct chemiluminescent technology. Large Platelets Few *NA* (04/21/24 5:34 PM) Invalid Interpretation Code Workflow SS Troponin I.cardiac DL <= 0.01 ng/mL [Mass/Vol] 17 ng/L Normal 0 - 54 ng/L [facility] Comment on above: Interpretive Data: High [...] 24 U/L Normal 7 - 185 U/L ADM SS Globulin 5.2 G/dL High 1.5 [...] [facility] SS Comment on above: Interpretive Data: Simon briones [employer] (CHEST, 1992, 102:[id number]) [...] ve ADM SS HCV Ab IA Ql Nonreactive: [...] 3:07 AM) Normal Non-Reacti ve ADM SS LABORATORYOrdered By: Nevaeh Bernal on 04-21-2024 Reagin Ab RPR Ql (S) Non-Reactive 27 (04/21/24 3:07 AM) Normal Non-Reacti ve [facility] SS Comment on above: Interpretive Data: [...] 04-21-2024 Magnesium [Mass/Vol] 1.6 mg/dL Normal 1.6-2.4 [facility] ([place] Comment on above: Performed By: #### P HOS, K, TROPHS, MG ####[place] [address] PHOSon 04-21-2024 Phosphate [Mass/Vol] 5.1 mg/dL Normal 2.4-5.1 [facility] ([place]) Comment on above: Result Comment: No te - New Reference Range in effect 20 Performed By: #### P HOS, K, TROPHS, MG ####[place] [address] PROon 04-21-2024 INR Coag (PPP) [Relative time] 1.4 {INR} Normal [facility] ([place] Comment on above: Result Comment: [employer] (CHEST, 1992, [id number])recommended therapeutic range for oral anticoagulant therapy is:LOW RISK: Prophylaxis of venous thrombosis INR: 2.0-3.0 Treatment of pulmonary embolism 2.0-3.0 Prevention of systemic embolism 2.0-3.0HIGH RISK: Mechanical prosthetic valves 2.5-3.5 Performed By: #### D IFF, MORPH, PRO, CBC ####[place] [address] PT Coag (PPP) [Time] 16.4 s High 9.0-14.4 [facility] ([place] Comment on above: Result Comment: Effe ctive 06/02/08, Protime results may be affected by some antibiotics (i.e. Ciprofloxacin, Azithromycin, Bactrim) which may potentiate the action of oral anticoagulants, with further increases in Protime/INR. Performed By: #### D IFF, MORPH, PRO, CBC ####[place] [address] RBC (Product)on 04-21-2024 RBC Product Ready RBC Ready for Pickup Normal [facility] ([place] Comment on above: Performed By: #### R BCP ####[place] [address] TROPHSon 04-21-2024 High Sensitivity Troponin I 17 ng/L Normal 0-54 [facility] ([place] Comment on above: Result Comment: High Sensitive Troponin I Reference Ranges:Female: 0-34 ng/LMale: 0-54 ng/LTesting performed on [employer] IM analyzer using direct chemiluminescent technology. Performed By: #### P HOS, K, TROPHS, MG ####[address] [address] .Auto Diffon 04-20-2024 Basophil, Absolute 0.1 10 3/mcL Normal 0.0-0.3 [facility] ([place] Comment on above: Performed By: #### A DIFF, ANEU, CBC, VANCR, BMP, GFR ####[address] [address] Basophils/100 WBC (Bld) 0.3 % Normal 0.0-2.5 [facility] ([place]) Comment on above: Performed By: #### A DIFF, ANEU, CBC, VANCR, BMP, GFR ####[place] [address] Eosinophil, Absolute 0.5 10 3/mcL Normal 0.0-0.7 [facility] ([place]) Comment on above: Performed By: #### A DIFF, ANEU, CBC, VANCR, BMP, GFR ####[address] [address] Eosinophils/100 WBC (Bld) 2.5 % Normal 0.0-6.0 [facility] ([place] Comment on above: Performed By: #### A DIFF, ANEU, CBC, VANCR, BMP, GFR ####[address] [address] Lymphocyte, Absolute 1.6 10 3/mcL Normal 0.9-4.3 [facility] ([place]) Comment on above: Performed By: #### A DIFF, ANEU, CBC, VANCR, BMP, GFR ####[address] [address] Lymphocytes/100 WBC (Bld) 7.9 % Low 20.0-40.0 [facility] ([place] Comment on above: Performed By: #### A DIFF, ANEU, CBC, VANCR, BMP, GFR ####[address] [address] Monocyte, Absolute 1.8 10 3/mcL High 0.1-1.4 [facility] ([place] Comment on above: Performed By: #### A DIFF, ANEU, CBC, VANCR, BMP, GFR ####[address] [address] Monocytes/100 WBC (Bld) 8.9 % Normal 2.0-13.0 [facility] ([place]) Comment on above: Performed By: #### A DIFF, ANEU, CBC, VANCR, BMP, GFR ####[address] [address] Neutrophils/100 WBC (Bld) 80.4 % High 50.0-75.0 [facility] ([place]) Comment on above: Performed By: #### A DIFF, ANEU, CBC, VANCR, BMP, GFR ####[address] [address] .GFRon 04-20-2024 GFR Non- 18 ml/min/1.73sqm Normal [facility] ([place]) Comment on above: Result Comment: GFR [...] A DIFF, ANEU, CBC, VANCR, BMP, GFR ####[address] [address] GFR 22 ml/min/1.73sqm Normal [facility] ([place] Comment on above: Result Comment: GFR Population [...] A DIFF, ANEU, CBC, VANCR, BMP, GFR ####[place] [address] .NEUABSon 04-20-2024 Neutrophil, Absolute 16.1 10 3/mcL High 2.3-8.1 [facility] ([place] Comment on above: Performed By: #### A DIFF, ANEU, CBC, VANCR, BMP, GFR ####[address] [address] BGon 04-20-2024 Base excess Calc (Bld) [Moles/Vol] 2.9 mmol/L Normal [facility] ([place] Comment on above: Performed By: #### B G ####[place] [id number] CO2 [Moles/Vol] 27.8 mmol/L Normal 22.0-30.0 [facility] ([place] Comment on above: Performed By: #### B G ####[place] [id number] HCO3 (Bld) [Moles/Vol] 26.6 mmol/L Normal 21.0-29.0 [facility] ([place] Comment on above: Performed By: #### B G ####[place] [id number] Oxygen (Bld) [Partial pressure] 60.8 mm[Hg] Low 74.0-108.0 [facility] ([place] Comment on above: Performed By: #### B G ####[place] [id number] Oxygen saturation in Blood 92.2 % Normal 92.0-96.0 [facility] ([place] Comment on above: Performed By: #### B G ####[address] [address] pCO2 37.4 mmHg Normal 32.0-46.0 [facility] ([place] Comment on above: Performed By: #### B G ####[place] [id number] pH (Bld) 7.470 [pH] High 7.380-7.46 0 [facility] ([place] Comment on above: Performed By: #### B G ####[place] [id number] BMPon 04-20-2024 BUN/Creatinine Ratio 21.6 ratio Normal 10.0-22.0 [facility] ([place] Comment on above: Performed By: #### A DIFF, ANEU, CBC, VANCR, BMP, GFR ####[place] [address] Calcium [Mass/Vol] 8.2 mg/dL Low 8.7-10.4 On license of [facility] ([place]) Comment on above: Performed By: #### A DIFF, ANEU, CBC, VANCR, BMP, GFR ####[address] [address] Chloride [Moles/Vol] 105 mmol/L Normal 98-110 [facility] ([place] Comment on above: Performed By: #### A DIFF, ANEU, CBC, VANCR, BMP, GFR ####[address] [address] CO2 [Moles/Vol] 28 mmol/L Normal 22-32 [facility] ([place] Comment on above: Performed By: #### A DIFF, ANEU, CBC, VANCR, BMP, GFR ####[address] [address] Creatinine [Mass/Vol] 3.57 mg/dL High 0.60-1.40 [facility] ([place] Comment on above: Performed By: #### A DIFF, ANEU, CBC, VANCR, BMP, GFR ####[place] [address] Electrolyte Balance 9.0 mEq/L Normal 4.0-15.0 [facility] ([place] Comment on above: Performed By: #### A DIFF, ANEU, CBC, VANCR, BMP, GFR ####[place] [address] Glucose [Mass/Vol] 124 mg/dL High 70-110 On license of [facility] ([place] Comment on above: Performed By: #### A DIFF, ANEU, CBC, VANCR, BMP, GFR ####[place] [address] Potassium [Moles/Vol] 3.6 mmol/L Normal 3.5-5.0 [facility] ([place] Comment on above: Performed By: #### A DIFF, ANEU, CBC, VANCR, BMP, GFR ####[place] [address] Sodium [Moles/Vol] 142 mmol/L Normal 136-145 On license of [facility] ([place] Comment on above: Performed By: #### A DIFF, ANEU, CBC, VANCR, BMP, GFR ####[place] [address] Urea nitrogen [Mass/Vol] 77.0 mg/dL High 8.0-22.0 [facility] ([place] Comment on above: Performed By: #### A DIFF, ANEU, CBC, VANCR, BMP, GFR ####[place] [address] CBCon 04-20-2024 Erythrocyte distribution width (RBC) [Ratio] 16.3 % High 11.5-15.5 [facility] ([place] Comment on above: Performed By: #### A DIFF, ANEU, CBC, VANCR, BMP, GFR ####[place] [address] Hematocrit (Bld) [Volume fraction] 23.5 % Low 40.0-52.0 [facility] ([place] Comment on above: Performed By: #### A DIFF, ANEU, CBC, VANCR, BMP, GFR ####[place] [address] Hgb 7.7 G/dL Low 13.0-17.5 [facility] ([place] Comment on above: Performed By: #### A DIFF, ANEU, CBC, VANCR, BMP, GFR ####[place] [address] MCH (RBC) [Entitic mass] 25.6 pg Low 27.0-33.0 [facility] ([place] Comment on above: Performed By: #### A DIFF, ANEU, CBC, VANCR, BMP, GFR ####[place] [address] MCHC 32.8 G/dL Normal 32.0-36.0 [facility] ([place] Comment on above: Performed By: #### A DIFF, ANEU, CBC, VANCR, BMP, GFR ####[place] [address] MCV (RBC) [Entitic vol] 78.0 fL Low 81.0-100.0 [facility] ([place] Comment on above: Performed By: #### A DIFF, ANEU, CBC, VANCR, BMP, GFR ####[place] [address] Platelet 410 10 3/mcL Normal 150-450 [facility] ([place] Comment on above: Performed By: #### A DIFF, ANEU, CBC, VANCR, BMP, GFR ####[place] [address] Platelet mean volume (Bld) [Entitic vol] 8.2 fL Normal 6.4-10.5 [facility] ([place] Comment on above: Performed By: #### A DIFF, ANEU, CBC, VANCR, BMP, GFR ####[place] [address] RBC 3.01 10 6/mcL Low 4.50-6.00 [facility] ([place] Comment on above: Performed By: #### A DIFF, ANEU, CBC, VANCR, BMP, GFR ####[place] [address] WBC 20.0 10 3/mcL High 4.5-10.8 [facility] ([place] Comment on above: Performed By: #### A DIFF, ANEU, CBC, VANCR, BMP, GFR ####[address] [address] CURon 04-20-2024 CUR Normal [facility] ([place] LABORATORYOrdered By: Aleksey Barajas on 04-20-2024 LDose Vancomycin: (random) See eMAR (04/20/24 4:45 AM) Normal Chemistry S Base Excess 2.9 mmol/L Invalid Interpretation Code AH Main Rapid Comm SS CO2 [Moles/Vol] 27.8 mmol/L Normal 22.0 - 30.0 mmol/L Main Rapid Comm SS HCO3 (Bld) [Moles/Vol] 26.6 mmol/L Normal 21.0 - 29.0 mmol/L Main Rapid Comm SS Oxygen (Bld) [Partial pressure] 60.8 mm[Hg] Low 74.0 - 108.0 mm Hg AH Main Rapid Comm SS pCO2 37.4 mm[Hg] Normal 32.0 - 46.0 mm Hg Main Rapid Comm SS pH (Bld) 7.470 [pH] High 7.380 - 7.460 Main Rapid Comm SS LABORATORYOrdered By: SYSTEM SYSTEM on 04-20-2024 Vancomycin [Mass/Vol] 15.8 mcg/mL Invalid Interpretation Code AH ADM SS VANCRon 04-20-2024 LDose Vancomycin: (random) See eMAR Normal [facility] ([place] Comment on above: Performed By: #### A DIFF, ANEU, CBC, VANCR, BMP, GFR ####[place] [address] Vancomycin Lvl (random) 15.8 mcg/mL Normal [facility] ([place] Comment on above: Performed By: #### A DIFF, ANEU, CBC, VANCR, BMP, GFR ####[place] [address] XR CHEST 1 VIEWon 04-20-2024 XR CHEST 1 VIEW Normal [facility] ([place] .GFRon 04-19-2024 GFR 18 ml/min/1.73sqm Normal [facility] ([place] Comment on above: Result Comment: GFR Population [...] #### C BC, DIFF, MORPH, BMP, GFR ####[address] [address] GFR Non- 15 ml/min/1.73sqm Normal [facility] ([place] Comment on above: Result Comment: GFR Population [...] #### C BC, DIFF, MORPH, BMP, GFR ####[address] [address] .Manual Diffon 04-19-2024 Bands 2.0 % Normal 0.0-5.0 [facility] ([place] Comment on above: Performed By: #### C BC, DIFF, MORPH, BMP, GFR ####[address] [address] Basophil %, Manual 0.0 % Normal 0.0-2.5 On license of [facility] ([place] Comment on above: Performed By: #### C BC, DIFF, MORPH, BMP, GFR ####[address] [address] Basophil, Abs Manual 0.0 10 3/mcL Normal 0.0-0.3 [facility] ([place] Comment on above: Performed By: #### C BC, DIFF, MORPH, BMP, GFR ####[address] [address] Eosinophil %, Manual 1.0 % Normal 0.0-6.0 [facility] ([place] Comment on above: Performed By: #### C BC, DIFF, MORPH, BMP, GFR ####[address] [address] Eosinophil, Abs Manual 0.4 10 3/mcL Normal 0.0-0.7 [facility] ([place] Comment on above: Performed By: #### C BC, DIFF, MORPH, BMP, GFR ####[place] [address] Lymphocyte %, Manual 5.0 % Low 20.0-40.0 [facility] ([place] Comment on above: Performed By: #### C BC, DIFF, MORPH, BMP, GFR ####[address] [address] Lymphocyte, Abs Manual 1.7 10 3/mcL Normal 0.9-4.3 [facility] ([place] Comment on above: Performed By: #### C BC, DIFF, MORPH, BMP, GFR ####[place] [address] Monocyte %, Manual 5.0 % Normal 2.0-13.0 On license of [facility] ([place] Comment on above: Performed By: #### C BC, DIFF, MORPH, BMP, GFR ####[place] [address] Monocyte, Abs Manual 1.7 10 3/mcL High 0.1-1.4 [facility] ([place] Comment on above: Performed By: #### C BC, DIFF, MORPH, BMP, GFR ####[place] [address] Neutrophil %, Manual 87.0 % High 50.0-75.0 [facility] ([place] Comment on above: Performed By: #### C BC, DIFF, MORPH, BMP, GFR ####[place] [address] Neutrophil, Abs Manual 30.7 10 3/mcL High 2.3-8.1 [facility] ([place] Comment on above: Performed By: #### C BC, DIFF, MORPH, BMP, GFR ####[place] [address] Nucleated RBC 0.0 /100 WBC Normal [facility] ([place] Comment on above: Performed By: #### C BC, DIFF, MORPH, BMP, GFR ####[place] [address] .Morphon 04-19-2024 Anisocytosis Ql (Bld) 1+ Normal [facility] ([place] Comment on above: Performed By: #### C BC, DIFF, MORPH, BMP, GFR ####[place] [id number] Large Platelets Few Normal [facility] ([place] Comment on above: Performed By: #### C BC, DIFF, MORPH, BMP, GFR ####[place] [id number] Microcytosis 1+ Normal [facility] ([place] Comment on above: Performed By: #### C BC, DIFF, MORPH, BMP, GFR ####[place] [id number] Ovalocytes 1+ Normal [facility] ([place] Comment on above: Performed By: #### C BC, DIFF, MORPH, BMP, GFR ####[place] [id number] Platelet Estimate Slt Increased Normal [facility] ([place]) Comment on above: Performed By: #### C BC, DIFF, MORPH, BMP, GFR ####[place] [address] BMPon 06-01-2024 BUN/Creatinine Ratio 18.9 ratio Normal 10.0-22.0 [facility] ([place] Comment on above: Performed By: #### C BC, DIFF, MORPH, BMP, GFR ####[address] [address] Calcium [Mass/Vol] 8.0 mg/dL Low 8.7-10.4 On license of [facility] ([place]) Comment on above: Performed By: #### C BC, DIFF, MORPH, BMP, GFR ####[address] [address] Chloride [Moles/Vol] 102 mmol/L Normal 98-110 [facility] ([place] Comment on above: Performed By: #### C BC, DIFF, MORPH, BMP, GFR ####[address] [address] CO2 [Moles/Vol] 28 mmol/L Normal 22-32 [facility] ([place] Comment on above: Performed By: #### C BC, DIFF, MORPH, BMP, GFR ####[address] [address] Creatinine [Mass/Vol] 4.34 mg/dL High 0.60-1.40 [facility] ([place]) Comment on above: Performed By: #### C BC, DIFF, MORPH, BMP, GFR ####[address] [address] Electrolyte Balance 8.0 mEq/L Normal 4.0-15.0 [facility] ([place]) Comment on above: Performed By: #### C BC, DIFF, MORPH, BMP, GFR ####[address] [address] Glucose [Mass/Vol] 202 mg/dL High 70-110 On license of [facility] ([place] Comment on above: Performed By: #### C BC, DIFF, MORPH, BMP, GFR ####[address] [address] Potassium [Moles/Vol] 4.1 mmol/L Normal 3.5-5.0 [facility] ([place] Comment on above: Performed By: #### C BC, DIFF, MORPH, BMP, GFR ####[place] [address] Sodium [Moles/Vol] 138 mmol/L Normal 136-145 On license of [facility] ([place]) Comment on above: Performed By: #### C BC, DIFF, MORPH, BMP, GFR ####[place] [address] Urea nitrogen [Mass/Vol] 82.0 mg/dL High 8.0-22.0 [facility] ([place] Comment on above: Performed By: #### C BC, DIFF, MORPH, BMP, GFR ####[place] [address] CBCon 04-19-2024 Erythrocyte distribution width (RBC) [Ratio] 16.2 % High 11.5-15.5 [facility] ([place] Comment on above: Performed By: #### C BC, DIFF, MORPH, BMP, GFR ####[place] [address] Hematocrit (Bld) [Volume fraction] 24.5 % Low 40.0-52.0 [facility] ([place] Comment on above: Performed By: #### C BC, DIFF, MORPH, BMP, GFR ####[place] [address] Hgb 7.7 G/dL Low 13.0-17.5 [facility] ([place] Comment on above: Performed By: #### C BC, DIFF, MORPH, BMP, GFR ####[place] [address] MCH (RBC) [Entitic mass] 24.8 pg Low 27.0-33.0 [facility] ([place] Comment on above: Performed By: #### C BC, DIFF, MORPH, BMP, GFR ####[place] [address] MCHC 31.6 G/dL Low 32.0-36.0 [facility] ([place] Comment on above: Performed By: #### C BC, DIFF, MORPH, BMP, GFR ####[place] [address] MCV (RBC) [Entitic vol] 78.6 fL Low 81.0-100.0 [facility] ([place]) Comment on above: Performed By: #### C BC, DIFF, MORPH, BMP, GFR ####[place] [address] Platelet 461 10 3/mcL High 150-450 [facility] ([place] Comment on above: Performed By: #### C BC, DIFF, MORPH, BMP, GFR ####[place] [address] Platelet mean volume (Bld) [Entitic vol] 8.4 fL Normal 6.4-10.5 [facility] ([place] Comment on above: Performed By: #### C BC, DIFF, MORPH, BMP, GFR ####[place] [address] RBC 3.12 10 6/mcL Low 4.50-6.00 [facility] ([place] Comment on above: Performed By: #### C BC, DIFF, MORPH, BMP, GFR ####[place] [address] WBC 34.6 10 3/mcL High 4.5-10.8 [facility] ([place] Comment on above: Performed By: #### C BC, DIFF, MORPH, BMP, GFR ####[place] [address] CDIFPCRon 04-19-2024 Clostridium difficile PCR Negative Normal Negative [facility] ([place] Comment on above: Result Comment: Note s 1990 Performed By: #### C DIFPCR ####[place] [address] Clostridium difficile PCR Int Normal [facility] ([place] Comment on above: Result Comment: No t cdB gene DNA detected. Negative test results may occur from improper collection, handling or storage of specimen, technical error, or extremely low levels of target below the limit of detection of the assay.See Below Performed By: #### C DIFPCR ####[place] [address] LABORATORYOrdered By: Stefano Wilkerson on 04-19-2024 Clostridium difficile PCR Negative 1 (04/19/24 5:57 AM) Normal Negative [facility] Auto Viro/Sero SS Comment on above: Result [...] *NA* (04/19/24 4:24 AM) Invalid Interpretation Code AH Workflow SS [...] not Maribell albicans Normal respiratory adela present. [facility] Comment on above: Requests for Mycopla sma, Legionella, Fungi, Mycobacteria, Chlamydia, and Viruses require ordering of those individual tests. GS 4+ Epithelial cells 4+ Polymorphonuclear cells 1+ Yeast [facility] Comment on above: Requests for Mycopla sma, Legionella, Fungi, Mycobacteria, Chlamydia, and Viruses require ordering of those individual tests. VANCRon 04-19-2024 LDose Vancomycin: (random) See eMAR Normal [facility] ([place] Comment on above: Performed By: #### V ANCR ####[place] [id number] [place] [address] Vancomycin Lvl (random) 17.3 mcg/mL Normal [facility] ([place] Comment on above: Performed By: #### V ANCR ####[place] [address] .Auto Diffon 04-18-2024 Basophil, Absolute 0.0 10 3/mcL Normal 0.0-0.3 [facility]) Comment on above: Performed By: #### C MP, ANEU, CBC, ADIFF, MORPH, DIFF, GFR ####[address] [address] Basophils/100 WBC (Bld) 0.1 % Normal 0.0-2.5 [facility] ([place] Comment on above: Performed By: #### C MP, ANEU, CBC, ADIFF, MORPH, DIFF, GFR ####[address] [address] Eosinophil, Absolute 0.1 10 3/mcL Normal 0.0-0.7 [facility] ([place]) Comment on above: Performed By: #### C MP, ANEU, CBC, ADIFF, MORPH, DIFF, GFR ####[address] [address] Eosinophils/100 WBC (Bld) 0.2 % Normal 0.0-6.0 [facility] ([place] Comment on above: Performed By: #### C MP, ANEU, CBC, ADIFF, MORPH, DIFF, GFR ####[address] [address] Lymphocyte, Absolute 1.7 10 3/mcL Normal 0.9-4.3 [facility] ([place] Comment on above: Performed By: #### C MP, ANEU, CBC, ADIFF, MORPH, DIFF, GFR ####[address] [address] Lymphocytes/100 WBC (Bld) 4.9 % Low 20.0-40.0 [facility] [place] Comment on above: Performed By: #### C MP, ANEU, CBC, ADIFF, MORPH, DIFF, GFR ####[address] [address] Monocyte, Absolute 2.6 10 3/mcL High 0.1-1.4 [facility] [place] Comment on above: Performed By: #### C MP, ANEU, CBC, ADIFF, MORPH, DIFF, GFR ####[address] [address] Monocytes/100 WBC (Bld) 7.5 % Normal 2.0-13.0 [facility] ([place] Comment on above: Performed By: #### C MP, ANEU, CBC, ADIFF, MORPH, DIFF, GFR ####[address] [address] Neutrophils/100 WBC (Bld) 87.3 % High 50.0-75.0 [facility] [place] Comment on above: Performed By: #### C MP, ANEU, CBC, ADIFF, MORPH, DIFF, GFR ####[address] [address] .GFRon 04-18-2024 GFR 18 ml/min/1.73sqm Normal [facility] ([place] Comment on above: Result Comment: GFR Population [...] #### B MP, MORPH, DIFF, GFR, CBC ####[address] [address] GFR Non- 15 ml/min/1.73sqm Normal [facility] ([place] Comment on above: Result Comment: GFR Population [...] #### B MP, MORPH, DIFF, GFR, CBC ####[address] [address] GFR Non- 15 ml/min/1.73sqm Normal [facility] [place] Comment on above: Result Comment: GFR Population [...] MP, ANEU, CBC, ADIFF, MORPH, DIFF, GFR ####[address] [address] GFR 18 ml/min/1.73sqm Normal [facility] [place] Comment on above: Result Comment: GFR Population [...] MP, ANEU, CBC, ADIFF, MORPH, DIFF, GFR ####[address] [address] .Manual Diffon 04-18-2024 Bands 2.0 % Normal 0.0-5.0 [facility] [place] Comment on above: Performed By: #### B MP, MORPH, DIFF, GFR, CBC ####[place] [address] Basophil %, Manual 0.0 % Normal 0.0-2.5 On license of [facility] ([place] Comment on above: Performed By: #### B MP, MORPH, DIFF, GFR, CBC ####[place] [address] Basophil, Abs Manual 0.0 10 3/mcL Normal 0.0-0.3 [facility] ([place] Comment on above: Performed By: #### B MP, MORPH, DIFF, GFR, CBC ####[place] [address] Eosinophil %, Manual 0.0 % Normal 0.0-6.0 [facility] [place] Comment on above: Performed By: #### B MP, MORPH, DIFF, GFR, CBC ####[place] [id number] Eosinophil, Abs Manual 0.0 10 3/mcL Normal 0.0-0.7 [facility] [place] Comment on above: Performed By: #### B MP, MORPH, DIFF, GFR, CBC ####[place] [address] Lymphocyte %, Manual 7.0 % Low 20.0-40.0 [facility] [place] Comment on above: Performed By: #### B MP, MORPH, DIFF, GFR, CBC ####[address] [address] Lymphocyte, Abs Manual 2.0 10 3/mcL Normal 0.9-4.3 [facility] [place] Comment on above: Performed By: #### B MP, MORPH, DIFF, GFR, CBC ####[place] [address] Monocyte %, Manual 6.0 % Normal 2.0-13.0 On license of [facility] ([place] Comment on above: Performed By: #### B MP, MORPH, DIFF, GFR, CBC ####[address] [address] Monocyte, Abs Manual 1.8 10 3/mcL High 0.1-1.4 [facility] ([place] Comment on above: Performed By: #### B MP, MORPH, DIFF, GFR, CBC ####[address] [address] Neutrophil %, Manual 85.0 % High 50.0-75.0 [facility] [place] Comment on above: Performed By: #### B MP, MORPH, DIFF, GFR, CBC ####[address] [address] Neutrophil, Abs Manual 25.3 10 3/mcL High 2.3-8.1 [facility] [place] Comment on above: Performed By: #### B MP, MORPH, DIFF, GFR, CBC ####[address] [address] Nucleated RBC 0.0 /100 WBC Normal [facility] ([place] Comment on above: Performed By: #### B MP, MORPH, DIFF, GFR, CBC ####[address] [address] Basophil %, Manual 0.0 % Normal 0.0-2.5 On license of [facility] ([place] Comment on above: Performed By: #### C MP, ANEU, CBC, ADIFF, MORPH, DIFF, GFR ####[address] [address] Basophil, Abs Manual 0.0 10 3/mcL Normal 0.0-0.3 [facility] ([place] Comment on above: Performed By: #### C MP, ANEU, CBC, ADIFF, MORPH, DIFF, GFR ####[address] [address] Eosinophil %, Manual 0.0 % Normal 0.0-6.0 [facility] [place] Comment on above: Performed By: #### C MP, ANEU, CBC, ADIFF, MORPH, DIFF, GFR ####[address] [address] Eosinophil, Abs Manual 0.0 10 3/mcL Normal 0.0-0.7 [facility] ([place] Comment on above: Performed By: #### C MP, ANEU, CBC, ADIFF, MORPH, DIFF, GFR ####[address] [address] Lymphocyte %, Manual 9.0 % Low 20.0-40.0 [facility] [place] Comment on above: Performed By: #### C MP, ANEU, CBC, ADIFF, MORPH, DIFF, GFR ####[address] [address] Lymphocyte, Abs Manual 3.2 10 3/mcL Normal 0.9-4.3 [facility] ([place] Comment on above: Performed By: #### C MP, ANEU, CBC, ADIFF, MORPH, DIFF, GFR ####[address] [address] Monocyte %, Manual 4.0 % Normal 2.0-13.0 On license of [facility] ([place] Comment on above: Performed By: #### C MP, ANEU, CBC, ADIFF, MORPH, DIFF, GFR ####[address] [address] Monocyte, Abs Manual 1.4 10 3/mcL Normal 0.1-1.4 [facility] ([place] Comment on above: Performed By: #### C MP, ANEU, CBC, ADIFF, MORPH, DIFF, GFR ####[address] [address] Myelocyte 1.0 % Normal [facility] ([place] Comment on above: Performed By: #### C MP, ANEU, CBC, ADIFF, MORPH, DIFF, GFR ####[address] [address] Neutrophil %, Manual 86.0 % High 50.0-75.0 [facility] ([place] Comment on above: Performed By: #### C MP, ANEU, CBC, ADIFF, MORPH, DIFF, GFR ####[address] [address] Nucleated RBC 0.0 /100 WBC Normal [facility] ([place] Comment on above: Performed By: #### C MP, ANEU, CBC, ADIFF, MORPH, DIFF, GFR ####[place] [address] Neutrophil, Abs Manual 30.1 10 3/mcL High 2.3-8.1 [facility] ([place] Comment on above: Performed By: #### C MP, ANEU, CBC, ADIFF, MORPH, DIFF, GFR ####[place] [address] .Morphon 04-18-2024 Platelet Estimate Normal Normal [facility] ([place] Comment on above: Performed By: #### B MP, MORPH, DIFF, GFR, CBC ####[place] [address] Anisocytosis Ql (Bld) 1+ Normal [facility] [place] Comment on above: Performed By: #### B MP, MORPH, DIFF, GFR, CBC ####[place] [address] Microcytosis 1+ Normal [facility] ([place] Comment on above: Performed By: #### B MP, MORPH, DIFF, GFR, CBC ####[place] [address] Anisocytosis Ql (Bld) 1+ Normal [facility] [place] Comment on above: Performed By: #### C MP, ANEU, CBC, ADIFF, MORPH, DIFF, GFR ####[place] [address] Hypochrom 1+ Normal [facility] ([place] Comment on above: Performed By: #### C MP, ANEU, CBC, ADIFF, MORPH, DIFF, GFR ####[place] [address] Microcytosis 1+ Normal [facility] ([place] Comment on above: Performed By: #### C MP, ANEU, CBC, ADIFF, MORPH, DIFF, GFR ####[place] [address] Platelet Estimate Normal Normal [facility] ([place] Comment on above: Performed By: #### C MP, ANEU, CBC, ADIFF, MORPH, DIFF, GFR ####[address] [address] .NEUABSon 04-18-2024 Neutrophil, Absolute 30.6 10 3/mcL High 2.3-8.1 [facility] ([place] Comment on above: Performed By: #### C MP, ANEU, CBC, ADIFF, MORPH, DIFF, GFR ####[place] [address] BMPon 04-18-2024 BUN/Creatinine Ratio 17.8 ratio Normal 10.0-22.0 [facility] ([place] Comment on above: Performed By: #### B MP, MORPH, DIFF, GFR, CBC ####[place] [address] Calcium [Mass/Vol] 7.8 mg/dL Low 8.7-10.4 On license of [facility] ([place] Comment on above: Performed By: #### B MP, MORPH, DIFF, GFR, CBC ####[place] [address] Chloride [Moles/Vol] 101 mmol/L Normal 98-110 [facility] [place] Comment on above: Performed By: #### B MP, MORPH, DIFF, GFR, CBC ####[place] [address] CO2 [Moles/Vol] 27 mmol/L Normal 22-32 [facility] ([place] Comment on above: Performed By: #### B MP, MORPH, DIFF, GFR, CBC ####[place] [address] Creatinine [Mass/Vol] 4.38 mg/dL High 0.60-1.40 [facility] [place] Comment on above: Performed By: #### B MP, MORPH, DIFF, GFR, CBC ####[place] [address] Electrolyte Balance 10.0 mEq/L Normal 4.0-15.0 [facility] ([place] Comment on above: Performed By: #### B MP, MORPH, DIFF, GFR, CBC ####[place] [address] Glucose [Mass/Vol] 135 mg/dL High 70-110 On license of [facility] [place] Comment on above: Performed By: #### B MP, MORPH, DIFF, GFR, CBC ####[place] [address] Potassium [Moles/Vol] 4.0 mmol/L Normal 3.5-5.0 [facility] [place] Comment on above: Performed By: #### B MP, MORPH, DIFF, GFR, CBC ####[place] [address] Sodium [Moles/Vol] 138 mmol/L Normal 136-145 On license of [facility] [place] Comment on above: Performed By: #### B MP, MORPH, DIFF, GFR, CBC ####[place] [address] Urea nitrogen [Mass/Vol] 78.0 mg/dL High 8.0-22.0 [facility] ([place] Comment on above: Performed By: #### B MP, MORPH, DIFF, GFR, CBC ####[place] [address] CBCon 04-18-2024 Erythrocyte distribution width (RBC) [Ratio] 16.2 % High 11.5-15.5 [facility] ([place] Comment on above: Performed By: #### B MP, MORPH, DIFF, GFR, CBC ####[place] [address] Hematocrit (Bld) [Volume fraction] 20.8 % Low 40.0-52.0 [facility] [place] Comment on above: Performed By: #### B MP, MORPH, DIFF, GFR, CBC ####[place] [address] Hgb 6.9 G/dL Critically abnormal 13.0-17.5 [facility] ([place] Comment on above: Performed By: #### B MP, MORPH, DIFF, GFR, CBC ####[place] [address] MCH (RBC) [Entitic mass] 25.4 pg Low 27.0-33.0 [facility] ([place] Comment on above: Performed By: #### B MP, MORPH, DIFF, GFR, CBC ####[place] [address] MCHC 33.2 G/dL Normal 32.0-36.0 [facility] ([place] Comment on above: Performed By: #### B MP, MORPH, DIFF, GFR, CBC ####[place] [address] MCV (RBC) [Entitic vol] 76.3 fL Low 81.0-100.0 [facility] ([place] Comment on above: Performed By: #### B MP, MORPH, DIFF, GFR, CBC ####[place] [address] Platelet 416 10 3/mcL Normal 150-450 [facility] ([place] Comment on above: Performed By: #### B MP, MORPH, DIFF, GFR, CBC ####[place] [address] Platelet mean volume (Bld) [Entitic vol] 8.4 fL Normal 6.4-10.5 [facility] ([place] Comment on above: Performed By: #### B MP, MORPH, DIFF, GFR, CBC ####[place] [address] RBC 2.72 10 6/mcL Low 4.50-6.00 [facility] ([place] Comment on above: Performed By: #### B MP, MORPH, DIFF, GFR, CBC ####[place] [address] WBC 29.1 10 3/mcL High 4.5-10.8 [facility] ([place] Comment on above: Performed By: #### B MP, MORPH, DIFF, GFR, CBC ####[place] [address] Erythrocyte distribution width (RBC) [Ratio] 16.3 % High 11.5-15.5 [facility] [place] Comment on above: Performed By: #### C MP, ANEU, CBC, ADIFF, MORPH, DIFF, GFR ####[place] [address] Hematocrit (Bld) [Volume fraction] 20.1 % Low 40.0-52.0 [facility] ([place] Comment on above: Performed By: #### C MP, ANEU, CBC, ADIFF, MORPH, DIFF, GFR ####[place] [address] Hgb 6.5 G/dL Critically abnormal 13.0-17.5 [facility] [place] Comment on above: Performed By: #### C MP, ANEU, CBC, ADIFF, MORPH, DIFF, GFR ####[place] [address] MCH (RBC) [Entitic mass] 24.8 pg Low 27.0-33.0 [facility] ([place] Comment on above: Performed By: #### C MP, ANEU, CBC, ADIFF, MORPH, DIFF, GFR ####[place] [address] MCHC 32.4 G/dL Normal 32.0-36.0 [facility] ([place] Comment on above: Performed By: #### C MP, ANEU, CBC, ADIFF, MORPH, DIFF, GFR ####[place] [address] MCV (RBC) [Entitic vol] 76.4 fL Low 81.0-100.0 [facility] [place] Comment on above: Performed By: #### C MP, ANEU, CBC, ADIFF, MORPH, DIFF, GFR ####[place] [address] Platelet 441 10 3/mcL Normal 150-450 [facility] [place] Comment on above: Performed By: #### C MP, ANEU, CBC, ADIFF, MORPH, DIFF, GFR ####[place] [address] Platelet mean volume (Bld) [Entitic vol] 8.7 fL Normal 6.4-10.5 [facility] [place] Comment on above: Performed By: #### C MP, ANEU, CBC, ADIFF, MORPH, DIFF, GFR ####[place] [address] RBC 2.64 10 6/mcL Low 4.50-6.00 [facility] ([place] Comment on above: Performed By: #### C MP, ANEU, CBC, ADIFF, MORPH, DIFF, GFR ####[place] [address] WBC 35.1 10 3/mcL High 4.5-10.8 [facility] ([place] Comment on above: Performed By: #### C MP, ANEU, CBC, ADIFF, MORPH, DIFF, GFR ####[place] [address] CMPon 04-18-2024 Albumin Level 1.4 G/dL Low 3.2-4.8 [facility] ([place] Comment on above: Performed By: #### C MP, ANEU, CBC, ADIFF, MORPH, DIFF, GFR ####[place] [address] Albumin/Globulin [Mass ratio] 0.3 {ratio} Low 0.9-1.6 [facility] ([place] Comment on above: Performed By: #### C MP, ANEU, CBC, ADIFF, MORPH, DIFF, GFR ####[place] [address] ALP [Catalytic activity/Vol] 241 U/L High 38-126 [facility] ([place] Comment on above: Performed By: #### C MP, ANEU, CBC, ADIFF, MORPH, DIFF, GFR ####[place] [address] ALT [Catalytic activity/Vol] 16 U/L Normal 12-55 [facility] ([place] Comment on above: Performed By: #### C MP, ANEU, CBC, ADIFF, MORPH, DIFF, GFR ####[place] [address] AST [Catalytic activity/Vol] 18 U/L Normal 8-34 [facility] ([place] Comment on above: Performed By: #### C MP, ANEU, CBC, ADIFF, MORPH, DIFF, GFR ####[place] [address] Bili Total 0.30 mg/dL Normal 0.20-1.20 [facility] ([place] Comment on above: Result Comment: Use of this assay is not recommended for patients undergoing treatment with eltrombopag due to the potential for falsely elevated results. Performed By: #### C MP, ANEU, CBC, ADIFF, MORPH, DIFF, GFR ####[place] [address] BUN/Creatinine Ratio 18.0 ratio Normal 10.0-22.0 [facility] ([place] Comment on above: Performed By: #### C MP, ANEU, CBC, ADIFF, MORPH, DIFF, GFR ####[place] [address] Calcium [Mass/Vol] 7.8 mg/dL Low 8.7-10.4 On license of [facility] ([place] Comment on above: Performed By: #### C MP, ANEU, CBC, ADIFF, MORPH, DIFF, GFR ####[place] [address] Chloride [Moles/Vol] 100 mmol/L Normal 98-110 [facility] ([place] Comment on above: Performed By: #### C MP, ANEU, CBC, ADIFF, MORPH, DIFF, GFR ####[place] [address] CO2 [Moles/Vol] 27 mmol/L Normal 22-32 [facility] ([place] Comment on above: Performed By: #### C MP, ANEU, CBC, ADIFF, MORPH, DIFF, GFR ####[place] [address] Creatinine [Mass/Vol] 4.34 mg/dL High 0.60-1.40 [facility] ([place] Comment on above: Performed By: #### C MP, ANEU, CBC, ADIFF, MORPH, DIFF, GFR ####[place] [address] Electrolyte Balance 10.0 mEq/L Normal 4.0-15.0 [facility] ([place] Comment on above: Performed By: #### C MP, ANEU, CBC, ADIFF, MORPH, DIFF, GFR ####[address] [address] Globulin 4.9 G/dL High 1.5-3.8 [facility] ([place] Comment on above: Performed By: #### C MP, ANEU, CBC, ADIFF, MORPH, DIFF, GFR ####[address] [address] Glucose [Mass/Vol] 169 mg/dL High 70-110 On license of [facility] ([place] Comment on above: Performed By: #### C MP, ANEU, CBC, ADIFF, MORPH, DIFF, GFR ####[address] [address] Potassium [Moles/Vol] 4.2 mmol/L Normal 3.5-5.0 [facility] ([place] Comment on above: Performed By: #### C MP, ANEU, CBC, ADIFF, MORPH, DIFF, GFR ####[address] [address] Sodium [Moles/Vol] 137 mmol/L Normal 136-145 On license of [facility] ([place] Comment on above: Performed By: #### C MP, ANEU, CBC, ADIFF, MORPH, DIFF, GFR ####[address] [address] Total Protein 6.3 G/dL Normal 5.7-8.2 [facility] ([place] Comment on above: Result Comment: No te - New Reference Range in effect 20 Performed By: #### C MP, ANEU, CBC, ADIFF, MORPH, DIFF, GFR ####[address] [address] Urea nitrogen [Mass/Vol] 78.0 mg/dL High 8.0-22.0 [facility] ([place] Comment on above: Performed By: #### C MP, ANEU, CBC, ADIFF, MORPH, DIFF, GFR ####[address] [address] CURon 04-18-2024 CUR Normal [facility] ([place] LABORATORYOrdered By: Nelida guzmán on 04-18-2024 RBC [...] - Microbiology an d Antimicrobial susceptibilityOrdered By: [facility] MICROBIOLOGY on 04-18-2024 Bacteria identified Cx Nom (Bld) Culture has been received in lab and is no growth to date. Culture will be held for four weeks. [facility] Bacteria identified Cx Nom (Bld) Culture has been received in lab and is no growth to date. Culture will be held for four weeks. [facility] No Panel Informationon 04-18 Culture Urine No growth at 48 hours. [facility] Work Phone: RBC (Product)on 04-18-2024 RBC Product Ready RBC Ready for Pickup Normal [facility] ([place] Comment on above: Performed By: #### R BCP ####[address] [address] RBC Product Ready RBC Ready for Pickup Normal [facility] ([place] Comment on above: Performed By: #### R BCP ####[place] [id number] [address] [place] [address] RBC Product Ready RBC Ready for Pickup Normal [facility] ([place] Comment on above: Performed By: #### R BCP ####[address] [address] .GFRon 2024 GFR 18 ml/min/1.73sqm Normal [facility] [facility] [place] Comment on above: Result Comment: GFR Population [...] L AC, PHOS, TROPHS, MG, BMP, GFR ####[address] [address] GFR Non- 15 ml/min/1.73sqm Normal [facility] ([place] Comment on above: Result Comment: GFR Population [...] L AC, PHOS, TROPHS, MG, BMP, GFR ####[address] [address] GFR 19 ml/min/1.73sqm Normal [facility] ([place] Comment on above: Result Comment: GFR Population [...] CMP, MG, CBC, MORPH, A1C, GFR, LAC ####[address] [address] GFR Non- 16 ml/min/1.73sqm Normal [facility] ([place] Comment on above: Result Comment: GFR Population [...] CMP, MG, CBC, MORPH, A1C, GFR, LAC ####[address] [address] GFR Non- 15 ml/min/1.73sqm Normal [facility] [place] Comment on above: Result Comment: GFR Population [...] MORPH, LAC, DIFF, PHOS, MG, GFR, CMP ####[address] [address] GFR 19 ml/min/1.73sqm Normal [facility] ([place] Comment on above: Result Comment: GFR Population [...] MORPH, LAC, DIFF, PHOS, MG, GFR, CMP ####[place] [address] .Manual Diffon 2024 Bands 7.0 % High 0.0-5.0 [facility] ([place] Comment on above: Performed By: #### D IFF, PHOS, CMP, MG, CBC, MORPH, A1C, GFR, LAC ####[place] [address] Basophil %, Manual 0.0 % Normal 0.0-2.5 On license of [facility] ([place]) Comment on above: Performed By: #### D IFF, PHOS, CMP, MG, CBC, MORPH, A1C, GFR, LAC ####[place] [address] Basophil, Abs Manual 0.0 10 3/mcL Normal 0.0-0.3 [facility] ([place] Comment on above: Performed By: #### D IFF, PHOS, CMP, MG, CBC, MORPH, A1C, GFR, LAC ####[place] [address] Eosinophil %, Manual 0.0 % Normal 0.0-6.0 [facility] ([place] Comment on above: Performed By: #### D IFF, PHOS, CMP, MG, CBC, MORPH, A1C, GFR, LAC ####[address] [address] Eosinophil, Abs Manual 0.0 10 3/mcL Normal 0.0-0.7 [facility] [place] Comment on above: Performed By: #### D IFF, PHOS, CMP, MG, CBC, MORPH, A1C, GFR, LAC ####[address] [address] Lymphocyte %, Manual 18.0 % Low 20.0-40.0 [facility] ([place] Comment on above: Performed By: #### D IFF, PHOS, CMP, MG, CBC, MORPH, A1C, GFR, LAC ####[address] [address] Lymphocyte, Abs Manual 7.3 10 3/mcL High 0.9-4.3 [facility] [place] Comment on above: Performed By: #### D IFF, PHOS, CMP, MG, CBC, MORPH, A1C, GFR, LAC ####[place] [address] Metamyelocyte 2.0 % Normal [facility] [place] Comment on above: Performed By: #### D IFF, PHOS, CMP, MG, CBC, MORPH, A1C, GFR, LAC ####[place] [address] Monocyte %, Manual 8.0 % Normal 2.0-13.0 On license of [facility] ([place] Comment on above: Performed By: #### D IFF, PHOS, CMP, MG, CBC, MORPH, A1C, GFR, LAC ####[place] [id number] Monocyte, Abs Manual 3.3 10 3/mcL High 0.1-1.4 [facility] ([place] Comment on above: Performed By: #### D IFF, PHOS, CMP, MG, CBC, MORPH, A1C, GFR, LAC ####[place] [address] Neutrophil %, Manual 65.0 % Normal 50.0-75.0 [facility] [place] Comment on above: Performed By: #### D IFF, PHOS, CMP, MG, CBC, MORPH, A1C, GFR, LAC ####[place] [address] Neutrophil, Abs Manual 29.3 10 3/mcL High 2.3-8.1 [facility] [place] Comment on above: Performed By: #### D IFF, PHOS, CMP, MG, CBC, MORPH, A1C, GFR, LAC ####[place] [address] Nucleated RBC 0.0 /100 WBC Normal [facility] [place] Comment on above: Performed By: #### D IFF, PHOS, CMP, MG, CBC, MORPH, A1C, GFR, LAC ####[place] [address] Bands 16.0 % High 0.0-5.0 [facility] [place] Comment on above: Performed By: #### C BC, MORPH, LAC, DIFF, PHOS, MG, GFR, CMP ####[place] [address] Basophil %, Manual 0.0 % Normal 0.0-2.5 On license of [facility] ([place] Comment on above: Performed By: #### C BC, MORPH, LAC, DIFF, PHOS, MG, GFR, CMP ####[place] [address] Basophil, Abs Manual 0.0 10 3/mcL Normal 0.0-0.3 [facility] [place] Comment on above: Performed By: #### C BC, MORPH, LAC, DIFF, PHOS, MG, GFR, CMP ####[place] [address] Eosinophil %, Manual 0.0 % Normal 0.0-6.0 [facility] [place] Comment on above: Performed By: #### C BC, MORPH, LAC, DIFF, PHOS, MG, GFR, CMP ####[address] [address] Eosinophil, Abs Manual 0.0 10 3/mcL Normal 0.0-0.7 [facility] [place] Comment on above: Performed By: #### C BC, MORPH, LAC, DIFF, PHOS, MG, GFR, CMP ####[address] [address] Lymphocyte %, Manual 7.0 % Low 20.0-40.0 [facility] [place] Comment on above: Performed By: #### C BC, MORPH, LAC, DIFF, PHOS, MG, GFR, CMP ####[address] [address] Lymphocyte, Abs Manual 2.9 10 3/mcL Normal 0.9-4.3 [facility] [place] Comment on above: Performed By: #### C BC, MORPH, LAC, DIFF, PHOS, MG, GFR, CMP ####[place] [address] Metamyelocyte 2.0 % Normal [facility] [place] Comment on above: Performed By: #### C BC, MORPH, LAC, DIFF, PHOS, MG, GFR, CMP ####[place] [address] Monocyte %, Manual 8.0 % Normal 2.0-13.0 On license of [facility] ([place] Comment on above: Performed By: #### C BC, MORPH, LAC, DIFF, PHOS, MG, GFR, CMP ####[address] [address] Monocyte, Abs Manual 3.3 10 3/mcL High 0.1-1.4 [facility] ([place] Comment on above: Performed By: #### C BC, MORPH, LAC, DIFF, PHOS, MG, GFR, CMP ####[place] [address] Neutrophil %, Manual 67.0 % Normal 50.0-75.0 [facility] [place] Comment on above: Performed By: #### C BC, MORPH, LAC, DIFF, PHOS, MG, GFR, CMP ####[place] [address] Neutrophil, Abs Manual 34.4 10 3/mcL High 2.3-8.1 [facility] [place] Comment on above: Performed By: #### C BC, MORPH, LAC, DIFF, PHOS, MG, GFR, CMP ####[place] [address] Nucleated RBC 0.0 /100 WBC Normal [facility] [place] Comment on above: Performed By: #### C BC, MORPH, LAC, DIFF, PHOS, MG, GFR, CMP ####[place] [address] .Morphon 2024 Anisocytosis Ql (Bld) 1+ Normal [facility] ([place] Comment on above: Performed By: #### D IFF, PHOS, CMP, MG, CBC, MORPH, A1C, GFR, LAC ####[place] [address] Hypochrom 1+ Normal [facility] [place] Comment on above: Performed By: #### D IFF, PHOS, CMP, MG, CBC, MORPH, A1C, GFR, LAC ####[place] [address] Microcytosis 1+ Normal [facility] [place] Comment on above: Performed By: #### D IFF, PHOS, CMP, MG, CBC, MORPH, A1C, GFR, LAC ####[place] [address] Platelet Clumps Few Normal [facility] [place] Comment on above: Performed By: #### D IFF, PHOS, CMP, MG, CBC, MORPH, A1C, GFR, LAC ####[place] [address] Platelet Estimate Slt Increased Normal [facility] [place] Comment on above: Performed By: #### D IFF, PHOS, CMP, MG, CBC, MORPH, A1C, GFR, LAC ####[place] [address] Poik 1+ Normal [facility] [place] Comment on above: Performed By: #### D IFF, PHOS, CMP, MG, CBC, MORPH, A1C, GFR, LAC ####[place] [address] Anisocytosis Ql (Bld) 1+ Normal [facility] [place] Comment on above: Performed By: #### C BC, MORPH, LAC, DIFF, PHOS, MG, GFR, CMP ####[place] [address] Hypochrom 1+ Normal [facility] [place] Comment on above: Performed By: #### C BC, MORPH, LAC, DIFF, PHOS, MG, GFR, CMP ####[place] [address] Microcytosis 1+ Normal [facility] [place] Comment on above: Performed By: #### C BC, MORPH, LAC, DIFF, PHOS, MG, GFR, CMP ####[place] [address] Ovalocytes 1+ Normal [facility] [place] Comment on above: Performed By: #### C BC, MORPH, LAC, DIFF, PHOS, MG, GFR, CMP ####[place] [address] Platelet Estimate Normal Normal [facility] [place] Comment on above: Performed By: #### C BC, MORPH, LAC, DIFF, PHOS, MG, GFR, CMP ####[place] [address] Polychrom 1+ Normal [facility] [place] Comment on above: Performed By: #### C BC, MORPH, LAC, DIFF, PHOS, MG, GFR, CMP ####[place] [address] Toxic Gran 1+ Normal [facility] [place] Comment on above: Performed By: #### C BC, MORPH, LAC, DIFF, PHOS, MG, GFR, CMP ####[place] [address] A1Con 2024 HbA1c (Bld) [Mass fraction] 14.9 % High 4.0-6.0 [facility] [place] Comment on above: Performed By: #### D IFF, PHOS, CMP, MG, CBC, MORPH, A1C, GFR, LAC ####[address] [address] ABO/Rh (Gel)on 2024 ABO/Rh Interp Positive Invalid Interpretation Code [facility] [place] Comment on above: Performed By: #### A KIMMY JONES ####[address] [address] ABS (Gel)on 2024 ABSC Interp (Gel) Negative Normal [facility] ([place] Comment on above: Performed By: #### A KIMMY JONES ####[address] [address] BGon 2024 Base excess Calc (Bld) [Moles/Vol] -6.2000 mmol/L Normal [facility] ([place] Comment on above: Performed By: #### B G ####[place] [id number] CO2 [Moles/Vol] 20.0 mmol/L Low 22.0-30.0 [facility] [place] Comment on above: Performed By: #### B G ####[place] [id number] HCO3 (Bld) [Moles/Vol] 18.9 mmol/L Low 21.0-29.0 [facility] ([place] Comment [place] above: Performed By: #### B G ####[place] [id number] Oxygen (Bld) [Partial pressure] 93.8 mm[Hg] Normal 74.0-108.0 [facility] [place] Comment on above: Performed By: #### B G ####[address] [address] Oxygen saturation in Blood 97.5 % High 92.0-96.0 [facility] [place] Comment on above: Performed By: #### B G ####[address] [address] pCO2 36.0 mmHg Normal 32.0-46.0 [facility] [place] Comment on above: Performed By: #### B G ####[place] [id number] pH (Bld) 7.339 [pH] Low 7.380-7.46 0 [facility] ([place] Comment on above: Performed By: #### B G ####[place] [id number] Base excess Calc (Bld) [Moles/Vol] -4.8000 mmol/L Normal [facility] [place] Comment on above: Performed By: #### B G ####[place] [address] CO2 [Moles/Vol] 24.4 mmol/L Normal 22.0-30.0 [facility] [place] Comment on above: Performed By: #### B G ####[place] [address] HCO3 (Bld) [Moles/Vol] 22.6 mmol/L Normal 21.0-29.0 [facility] [place] Comment on above: Performed By: #### B G ####[place] [address] Oxygen (Bld) [Partial pressure] 116.5 mm[Hg] High 74.0-108.0 [facility] [place] Comment on above: Performed By: #### B G ####[place] [address] Oxygen saturation in Blood 98.8 % High 92.0-96.0 [facility] [place] Comment on above: Performed By: #### B G ####[place] [id number] [address] [place], [place] [id number] pCO2 56.2 mmHg High 32.0-46.0 [facility] [place] Comment on above: Performed By: #### B G ####[place] [id number] pH (Bld) 7.223 [pH] Low 7.380-7.46 0 [facility] [place] Comment on above: Performed By: #### B G ####[address] [address] BMPon 2024 BUN/Creatinine Ratio 17.7 ratio Normal 10.0-22.0 [facility] [place] Comment on above: Performed By: #### L AC, PHOS, TROPHS, MG, BMP, GFR ####[place] [address] Calcium [Mass/Vol] 7.8 mg/dL Low 8.7-10.4 On license of [facility] ([place] Comment on above: Performed By: #### L AC, PHOS, TROPHS, MG, BMP, GFR ####[place] [address] Chloride [Moles/Vol] 100 mmol/L Normal 98-110 [facility] [place] Comment on above: Performed By: #### L AC, PHOS, TROPHS, MG, BMP, GFR ####[place] [address] CO2 [Moles/Vol] 25 mmol/L Normal 22-32 [facility] [place] Comment on above: Performed By: #### L AC, PHOS, TROPHS, MG, BMP, GFR ####[place] [address] Creatinine [Mass/Vol] 4.29 mg/dL High 0.60-1.40 [facility] ([place] Comment on above: Performed By: #### L AC, PHOS, TROPHS, MG, BMP, GFR ####[place] [address] Electrolyte Balance 10.0 mEq/L Normal 4.0-15.0 [facility] ([place] Comment on above: Performed By: #### L AC, PHOS, TROPHS, MG, BMP, GFR ####[place] [address] Glucose [Mass/Vol] 248 mg/dL High 70-110 On license of [facility] ([place] Comment on above: Performed By: #### L AC, PHOS, TROPHS, MG, BMP, GFR ####[place] [address] Potassium [Moles/Vol] 5.1 mmol/L High 3.5-5.0 [facility] [place] Comment on above: Performed By: #### L AC, PHOS, TROPHS, MG, BMP, GFR ####[place] [id number] Sodium [Moles/Vol] 135 mmol/L Low 136-145 On license of [facility] [place] Comment on above: Performed By: #### L AC, PHOS, TROPHS, MG, BMP, GFR ####[place] [address] Urea nitrogen [Mass/Vol] 76.0 mg/dL High 8.0-22.0 [facility] [place] Comment on above: Performed By: #### L AC, PHOS, TROPHS, MG, BMP, GFR ####[place] [address] CBCon 2024 Erythrocyte distribution width (RBC) [Ratio] 16.4 % High 11.5-15.5 [facility] [place] Comment on above: Performed By: #### D IFF, PHOS, CMP, MG, CBC, MORPH, A1C, GFR, LAC ####[place] [address] Hematocrit (Bld) [Volume fraction] 22.8 % Low 40.0-52.0 [facility] [place] Comment on above: Performed By: #### D IFF, PHOS, CMP, MG, CBC, MORPH, A1C, GFR, LAC ####[place] [address] Hgb 7.2 G/dL Low 13.0-17.5 [facility] [place] Comment on above: Performed By: #### D IFF, PHOS, CMP, MG, CBC, MORPH, A1C, GFR, LAC ####[place] [address] MCH (RBC) [Entitic mass] 24.2 pg Low 27.0-33.0 [facility] [place] Comment on above: Performed By: #### D IFF, PHOS, CMP, MG, CBC, MORPH, A1C, GFR, LAC ####[place] [address] MCHC 31.5 G/dL Low 32.0-36.0 [facility] [place] Comment on above: Performed By: #### D IFF, PHOS, CMP, MG, CBC, MORPH, A1C, GFR, LAC ####[place] [address] MCV (RBC) [Entitic vol] 76.7 fL Low 81.0-100.0 [facility] [place] Comment on above: Performed By: #### D IFF, PHOS, CMP, MG, CBC, MORPH, A1C, GFR, LAC ####[place] [address] Platelet 488 10 3/mcL High 150-450 [facility] ([place] Comment on above: Performed By: #### D IFF, PHOS, CMP, MG, CBC, MORPH, A1C, GFR, LAC ####[place] [address] Platelet mean volume (Bld) [Entitic vol] 8.6 fL Normal 6.4-10.5 [facility] [place] Comment on above: Performed By: #### D IFF, PHOS, CMP, MG, CBC, MORPH, A1C, GFR, LAC ####[place] [address] RBC 2.97 10 6/mcL Low 4.50-6.00 [facility] [place] Comment on above: Performed By: #### D IFF, PHOS, CMP, MG, CBC, MORPH, A1C, GFR, LAC ####[place] [address] WBC 40.7 10 3/mcL High 4.5-10.8 [facility] [place] Comment on above: Performed By: #### D IFF, PHOS, CMP, MG, CBC, MORPH, A1C, GFR, LAC ####[place] [address] Erythrocyte distribution width (RBC) [Ratio] 16.4 % High 11.5-15.5 [facility] [place] Comment on above: Performed By: #### C BC, MORPH, LAC, DIFF, PHOS, MG, GFR, CMP ####[place] [address] Hematocrit (Bld) [Volume fraction] 23.1 % Low 40.0-52.0 [facility] [place] Comment on above: Performed By: #### C BC, MORPH, LAC, DIFF, PHOS, MG, GFR, CMP ####[place] [address] Hgb 7.3 G/dL Low 13.0-17.5 [facility] ([place] Comment on above: Performed By: #### C BC, MORPH, LAC, DIFF, PHOS, MG, GFR, CMP ####[place] [address] MCH (RBC) [Entitic mass] 24.2 pg Low 27.0-33.0 [facility] [place] Comment on above: Performed By: #### C BC, MORPH, LAC, DIFF, PHOS, MG, GFR, CMP ####[place] [address] MCHC 31.5 G/dL Low 32.0-36.0 [facility] [place] Comment on above: Performed By: #### C BC, MORPH, LAC, DIFF, PHOS, MG, GFR, CMP ####[place] [address] MCV (RBC) [Entitic vol] 76.7 fL Low 81.0-100.0 [facility] [place] Comment on above: Performed By: #### C BC, MORPH, LAC, DIFF, PHOS, MG, GFR, CMP ####[place] [address] Platelet 485 10 3/mcL High 150-450 [facility] ([place] Comment on above: Performed By: #### C BC, MORPH, LAC, DIFF, PHOS, MG, GFR, CMP ####[address] [address] Platelet mean volume (Bld) [Entitic vol] 8.3 fL Normal 6.4-10.5 [facility] ([place] Comment on above: Performed By: #### C BC, MORPH, LAC, DIFF, PHOS, MG, GFR, CMP ####[address] [address] RBC 3.01 10 6/mcL Low 4.50-6.00 [facility] ([place] Comment on above: Performed By: #### C BC, MORPH, LAC, DIFF, PHOS, MG, GFR, CMP ####[address] [address] WBC 41.5 10 3/mcL High 4.5-10.8 [facility] ([place] Comment on above: Performed By: #### C BC, MORPH, LAC, DIFF, PHOS, MG, GFR, CMP ####[place] [address] CMPon 2024 Albumin Level 1.5 G/dL Low 3.2-4.8 [facility] [place] Comment on above: Performed By: #### D IFF, PHOS, CMP, MG, CBC, MORPH, A1C, GFR, LAC ####[address] [address] Albumin/Globulin [Mass ratio] 0.3 {ratio} Low 0.9-1.6 [facility] [place] Comment on above: Performed By: #### D IFF, PHOS, CMP, MG, CBC, MORPH, A1C, GFR, LAC ####[address] [address] ALP [Catalytic activity/Vol] 244 U/L High 38-126 [facility] [place] Comment on above: Performed By: #### D IFF, PHOS, CMP, MG, CBC, MORPH, A1C, GFR, LAC ####[place] [id number] ALT [Catalytic activity/Vol] 18 U/L Normal 12-55 [facility] [place] Comment on above: Performed By: #### D IFF, PHOS, CMP, MG, CBC, MORPH, A1C, GFR, LAC ####[address] [address] AST [Catalytic activity/Vol] 25 U/L Normal 8-34 [facility] [place] Comment on above: Performed By: #### D IFF, PHOS, CMP, MG, CBC, MORPH, A1C, GFR, LAC ####[address] [address] Bili Total 0.20 mg/dL Normal 0.20-1.20 [facility] ([place] Comment on above: Result Comment: Use of this assay is not recommended for patients undergoing treatment with eltrombopag due to the potential for falsely elevated results. Performed By: #### D IFF, PHOS, CMP, MG, CBC, MORPH, A1C, GFR, LAC ####[place] [id number] BUN/Creatinine Ratio 18.2 ratio Normal 10.0-22.0 [facility] [place] Comment on above: Performed By: #### D IFF, PHOS, CMP, MG, CBC, MORPH, A1C, GFR, LAC ####[address] [address] Calcium [Mass/Vol] 8.1 mg/dL Low 8.7-10.4 On license of [facility] [place] Comment on above: Performed By: #### D IFF, PHOS, CMP, MG, CBC, MORPH, A1C, GFR, LAC ####[address] [address] Chloride [Moles/Vol] 102 mmol/L Normal 98-110 [facility] [place] Comment on above: Performed By: #### D IFF, PHOS, CMP, MG, CBC, MORPH, A1C, GFR, LAC ####[address] [address] CO2 [Moles/Vol] 23 mmol/L Normal 22-32 [facility] [place] Comment on above: Performed By: #### D IFF, PHOS, CMP, MG, CBC, MORPH, A1C, GFR, LAC ####[address] [address] Creatinine [Mass/Vol] 4.11 mg/dL High 0.60-1.40 [facility] [place] Comment on above: Performed By: #### D IFF, PHOS, CMP, MG, CBC, MORPH, A1C, GFR, LAC ####[address] [address] Electrolyte Balance 11.0 mEq/L Normal 4.0-15.0 [facility] ([place] Comment on above: Performed By: #### D IFF, PHOS, CMP, MG, CBC, MORPH, A1C, GFR, LAC ####[address] [address] Globulin 5.0 G/dL High 1.5-3.8 [facility] [place] Comment on above: Performed By: #### D IFF, PHOS, CMP, MG, CBC, MORPH, A1C, GFR, LAC ####[address] [address] Glucose [Mass/Vol] 191 mg/dL High 70-110 On [facility] of [facility] [place] Comment on above: Performed By: #### D IFF, PHOS, CMP, MG, CBC, MORPH, A1C, GFR, LAC ####[address] [address] Potassium [Moles/Vol] 4.5 mmol/L Normal 3.5-5.0 [facility] [place] Comment on above: Performed By: #### D IFF, PHOS, CMP, MG, CBC, MORPH, A1C, GFR, LAC ####[address] [address] Sodium [Moles/Vol] 136 mmol/L Normal 136-145 On [facility] of [facility] [place] Comment on above: Performed By: #### D IFF, PHOS, CMP, MG, CBC, MORPH, A1C, GFR, LAC ####[address] [address] Total Protein 6.5 G/dL Normal 5.7-8.2 [facility] ([place] Comment on above: Result Comment: No te - New Reference Range in effect 20 Performed By: #### D IFF, PHOS, CMP, MG, CBC, MORPH, A1C, GFR, LAC ####[address] [address] Urea nitrogen [Mass/Vol] 75.0 mg/dL High 8.0-22.0 [facility] [place] Comment on above: Performed By: #### D IFF, PHOS, CMP, MG, CBC, MORPH, A1C, GFR, LAC ####[address] [address] Albumin Level 1.5 G/dL Low 3.2-4.8 [facility] ([place] Comment on above: Performed By: #### C BC, MORPH, LAC, DIFF, PHOS, MG, GFR, CMP ####[address] [address] Albumin/Globulin [Mass ratio] 0.3 {ratio} Low 0.9-1.6 [facility] [place] Comment on above: Performed By: #### C BC, MORPH, LAC, DIFF, PHOS, MG, GFR, CMP ####[address] [address] ALP [Catalytic activity/Vol] 231 U/L High 38-126 [facility] [place] Comment on above: Performed By: #### C BC, MORPH, LAC, DIFF, PHOS, MG, GFR, CMP ####[address] [address] ALT [Catalytic activity/Vol] 16 U/L Normal 12-55 [facility] ([place] Comment on above: Performed By: #### C BC, MORPH, LAC, DIFF, PHOS, MG, GFR, CMP ####[address] [address] AST [Catalytic activity/Vol] 20 U/L Normal 8-34 [facility] ([place] Comment on above: Performed By: #### C BC, MORPH, LAC, DIFF, PHOS, MG, GFR, CMP ####[address] [address] Bili Total 0.20 mg/dL Normal 0.20-1.20 [facility] ([place] Comment on above: Result Comment: Use of this assay is not recommended for patients undergoing treatment with eltrombopag due to the potential for falsely elevated results. Performed By: #### C BC, MORPH, LAC, DIFF, PHOS, MG, GFR, CMP ####[place] [id number] BUN/Creatinine Ratio 18.2 ratio Normal 10.0-22.0 [facility] [place] Comment on above: Performed By: #### C BC, MORPH, LAC, DIFF, PHOS, MG, GFR, CMP ####[place] [address] Calcium [Mass/Vol] 8.0 mg/dL Low 8.7-10.4 On license of [facility] ([place] Comment on above: Performed By: #### C BC, MORPH, LAC, DIFF, PHOS, MG, GFR, CMP ####[address] [address] Chloride [Moles/Vol] 104 mmol/L Normal 98-110 [facility] ([place] Comment on above: Performed By: #### C BC, MORPH, LAC, DIFF, PHOS, MG, GFR, CMP ####[address] [address] CO2 [Moles/Vol] 23 mmol/L Normal 22-32 [facility] ([place]) Comment on above: Performed By: #### C BC, MORPH, LAC, DIFF, PHOS, MG, GFR, CMP ####[place] [id number] Creatinine [Mass/Vol] 4.17 mg/dL High 0.60-1.40 [facility] ([place]) Comment on above: Performed By: #### C BC, MORPH, LAC, DIFF, PHOS, MG, GFR, CMP ####[place] [id number] Electrolyte Balance 10.0 mEq/L Normal 4.0-15.0 [facility] ([place]) Comment on above: Performed By: #### C BC, MORPH, LAC, DIFF, PHOS, MG, GFR, CMP ####[address] [address] Globulin 5.1 G/dL High 1.5-3.8 [facility] ([place]) Comment on above: Performed By: #### C BC, MORPH, LAC, DIFF, PHOS, MG, GFR, CMP ####[address] [address] Glucose [Mass/Vol] 218 mg/dL High 70-110 On license of [facility] ([place]) Comment on above: Performed By: #### C BC, MORPH, LAC, DIFF, PHOS, MG, GFR, CMP ####[address] [address] Potassium [Moles/Vol] 4.7 mmol/L Normal 3.5-5.0 [facility] ([place]) Comment on above: Performed By: #### C BC, MORPH, LAC, DIFF, PHOS, MG, GFR, CMP ####[address] [address] Sodium [Moles/Vol] 137 mmol/L Normal 136-145 On license of [facility] ([place]) Comment on above: Performed By: #### C BC, MORPH, LAC, DIFF, PHOS, MG, GFR, CMP ####[address] [address] Total Protein 6.6 G/dL Normal 5.7-8.2 [facility] ([place]) Comment on above: Result Comment: No te - New Reference Range in effect 20 Performed By: #### C BC, MORPH, LAC, DIFF, PHOS, MG, GFR, CMP ####[address] [address] Urea nitrogen [Mass/Vol] 76.0 mg/dL High 8.0-22.0 [facility] ([place]) Comment on above: Performed By: #### C BC, MORPH, LAC, DIFF, PHOS, MG, GFR, CMP ####[address] [place] [address] Final Surgical Pathology Rep negra 2024 Final Surgical Pathology Report Normal [facility] ([place]) on 2024 Hematocrit (Bld) [Volume fraction] 20.8 % Low 40.0-52.0 [facility] ([place] Comment on above: Performed By: #### H H ####[place] [address] Hgb 6.7 G/dL Critically abnormal 13.0-17.5 [facility] ([place]) Comment on above: Performed By: #### H H ####[place] [address] LABORATORYOrdered By: Magdalene Puckett on 2024 ABO and Rh group Nom (Bld) Blood group O Rh(D) positive Invalid Interpretation Code BB Auto SS Blood group antibody screen Ql Negative ABSC (04/17/24 8:44 PM) Normal AH BB Auto SS LABORATORYOrdered By: Petra De Jesus on 2024 LDose Vancomycin: (random) See eMAR (04/17/24 8:44 PM) Normal AH Chemistry S LABORATORYOrdered By: SYSTEM SYSTEM on 2024 Vancomycin [Mass/Vol] 18.8 mcg/mL Invalid Interpretation Code ADM SS Troponin I.cardiac DL <= 0.01 ng/mL [Mass/Vol] 21 ng/L Normal 0 - 54 ng/L AH ADM SS Comment on above: Interpretive Data: High Sensitive Troponin I Reference Ranges: Female: 0-34 ng/L Male: 0-54 ng/L Testing performed on [employer] Medical analyzer using direct chemiluminescent technology. HbA1c (Bld) [Mass fraction] 14.9 % High 4.0 - 6.0 % Auto Chem SS Hypochromia Ql (Bld) 1+ *NA* (04/17/24 4:33 AM) Invalid Interpretation Code Workflow SS Platelet Clumps Few *NA* (04/17/24 4:33 AM) Invalid Interpretation Code Workflow SS Poikilocytosis LM Ql (Bld) 1+ *NA* (04/17/24 4:33 AM) Invalid Interpretation Code Workflow SS Ovalocytes LM Ql (Bld) 1+ *NA* (04/17/24 12:16 AM) Invalid Interpretation Code Workflow SS LABORATORYOrdered By: Roberto Rock on 2024 Lactic Acid Lvl 1.4 mmol/L Normal 0.2 - 2.0 mmol/L Main Rapid Comm SS LABORATORYOrdered By: Radha Craft on 2024 Lactic Acid Lvl 2.0 mmol/L Normal 0.2 - 2.0 mmol/L Main Rapid Comm SS Base Excess -4.8 mmol/L Invalid Interpretation Code Main Rapid Comm SS CO2 [Moles/Vol] 24.4 mmol/L Normal 22.0 - 30.0 mmol/L Main Rapid Comm SS HCO3 (Bld) [Moles/Vol] 22.6 mmol/L Normal 21.0 - 29.0 mmol/L Main Rapid Comm SS Oxygen (Bld) [Partial pressure] 116.5 mm[Hg] High 74.0 - 108.0 mm Hg Main Rapid Comm SS pCO2 56.2 mm[Hg] [...] mm[Hg] Normal 74.0 - 108.0 mm Hg Main Rapid Comm SS pCO2 36.0 mm[Hg] Normal 32.0 - 46.0 mm Hg Main Rapid Comm SS pH (Bld) 7.339 [pH] Low 7.380 - 7.460 Main Rapid Comm SS LACon 2024 Lactic Acid Lvl 1.4 mmol/L Normal 0.2-2.0 [facility] ([place] Comment on above: Performed By: #### L AC, PHOS, TROPHS, MG, BMP, GFR ####[place] [address] Lactic Acid Lvl 2.0 mmol/L Normal 0.2-2.0 [facility] ([place] Comment on above: Performed By: #### D IFF, PHOS, CMP, MG, CBC, MORPH, A1C, GFR, LAC ####[place] [address] Lactic Acid Lvl 1.9 mmol/L Normal 0.2-2.0 [facility] ([place] Comment on above: Order Comment: Order ed secondary to Lactic Acid result greater than or equal to 2.0 Performed By: #### L AC ####[place] [address] Lactic Acid Lvl 2.0 mmol/L Normal 0.2-2.0 [facility] ([place] Comment on above: Performed By: #### C BC, MORPH, LAC, DIFF, PHOS, MG, GFR, CMP ####[place] [address] MGon 2024 Magnesium [Mass/Vol] 2.3 mg/dL Normal 1.6-2.4 [facility] ([place]) Comment on above: Performed By: #### L AC, PHOS, TROPHS, MG, BMP, GFR ####[place] [address] Magnesium [Mass/Vol] 1.6 mg/dL Normal 1.6-2.4 [facility] ([place]) Comment on above: Performed By: #### D IFF, PHOS, CMP, MG, CBC, MORPH, A1C, GFR, LAC ####[place] [address] Magnesium [Mass/Vol] 1.7 mg/dL Normal 1.6-2.4 [facility] ([place] Comment on above: Performed By: #### C BC, MORPH, LAC, DIFF, PHOS, MG, GFR, CMP ####[place] [address] PHOSon 2024 Phosphate [Mass/Vol] 8.9 mg/dL High 2.4-5.1 [facility] ([place] Comment on above: Result Comment: No te - New Reference Range in effect 20 Performed By: #### L AC, PHOS, TROPHS, MG, BMP, GFR ####[place] [address] Phosphate [Mass/Vol] 7.6 mg/dL High 2.4-5.1 [facility] ([place] Comment on above: Result Comment: No te - New Reference Range in effect 20 Performed By: #### D IFF, PHOS, CMP, MG, CBC, MORPH, A1C, GFR, LAC ####[place] [address] Phosphate [Mass/Vol] 8.1 mg/dL High 2.4-5.1 [facility] ([place] Comment on above: Result Comment: No te - New Reference Range in effect 20 Performed By: #### C BC, MORPH, LAC, DIFF, PHOS, MG, GFR, CMP ####[place] [address] RBC (Product)on 2024 RBC Product Ready RBC Ready for Pickup Normal [facility] ([place] Comment on above: Performed By: #### R BCP ####[address] High Sensitivity Troponin I 21 ng/L Normal 0-54 [facility] ([place] Comment on above: Result Comment: High Sensitive Troponin I Reference Ranges:Female: 0-34 ng/LMale: 0-54 ng/LTesting performed on [employer] IM analyzer using direct chemiluminescent technology. Performed By: #### L AC, PHOS, TROPHS, MG, BMP, GFR ####[place] [address] VANCRon 2024 LDose Vancomycin: (random) See eMAR Normal [facility] ([place] Comment on above: Performed By: #### V ANCR ####[address] [address] Vancomycin Lvl (random) 18.8 mcg/mL Normal [facility] ([place] Comment on above: Performed By: #### V ANCR ####[address] [address] XR CHEST 1 VIEWon 2024 XR CHEST 1 VIEW Normal [facility] ([place] XR CHEST 1 VIEW Normal [facility] ([place]) .Auto Diffon 04-16-2024 Basophil, Absolute 0.1 10 3/mcL Normal 0.0-0.3 [facility] ([place] Comment on above: Performed By: #### C BC, ADIFF, GFR, MORPH, BMP, ANEU ####[address] [address] Basophils/100 WBC (Bld) 0.3 % Normal 0.0-2.5 [facility] ([place]) Comment on above: Performed By: #### C BC, ADIFF, GFR, MORPH, BMP, ANEU ####[address] [address] Eosinophil, Absolute 0.3 10 3/mcL Normal 0.0-0.7 [facility] ([place]) Comment on above: Performed By: #### C BC, ADIFF, GFR, MORPH, BMP, ANEU ####[address] [address] Eosinophils/100 WBC (Bld) 0.8 % Normal 0.0-6.0 [facility] ([place] Comment on above: Performed By: #### C BC, ADIFF, GFR, MORPH, BMP, ANEU ####[address] [address] Lymphocyte, Absolute 1.1 10 3/mcL Normal 0.9-4.3 [facility] ([place]) Comment on above: Performed By: #### C BC, ADIFF, GFR, MORPH, BMP, ANEU ####[address] [address] Lymphocytes/100 WBC (Bld) 3.4 % Low 20.0-40.0 [facility] ([place] Comment on above: Performed By: #### C BC, ADIFF, GFR, MORPH, BMP, ANEU ####[address] [address] Monocyte, Absolute 2.0 10 3/mcL High 0.1-1.4 [facility] ([place] Comment on above: Performed By: #### C BC, ADIFF, GFR, MORPH, BMP, ANEU ####[address] [address] Monocytes/100 WBC (Bld) 6.5 % Normal 2.0-13.0 [facility] ([place]) Comment on above: Performed By: #### C BC, ADIFF, GFR, MORPH, BMP, ANEU ####[address] [address] Neutrophils/100 WBC (Bld) 89.0 % High 50.0-75.0 [facility] ([place] Comment on above: Performed By: #### C BC, ADIFF, GFR, MORPH, BMP, ANEU ####[address] [address] .GFRon 04-16-2024 GFR 21 ml/min/1.73sqm Normal [facility] ([place] Comment on above: Result Comment: GFR Population [...] C BC, ADIFF, GFR, MORPH, BMP, ANEU ####[address] [address] GFR Non- 17 ml/min/1.73sqm Normal [facility] ([place]) Comment on above: Result Comment: GFR [...] C BC, ADIFF, GFR, MORPH, BMP, ANEU ####[address] [address] GFR Non- 17 ml/min/1.73sqm [facility] ([place]) Comment on above: Result Comment: GFR Population [...] P RO, TROPHS, BMP, MG, GFR, PHOS ####[address] [address] GFR 21 ml/min/1.73sqm [facility] ([place] Comment on above: Result Comment: GFR Population [...] P RO, TROPHS, BMP, MG, GFR, PHOS ####[place] [address] GFR 21 ml/min/1.73sqm Normal [facility] ([place] Comment on above: Result Comment: GFR Population [...] meters Performed By: #### R FP, GFR ####[place] [address] GFR Non- 17 ml/min/1.73sqm Normal [facility] ([place] Comment on above: Result Comment: GFR Population [...] meters Performed By: #### R FP, GFR ####[place] [address] .Manual Diffon 04-16-2024 Bands 1.0 % Normal 0.0-5.0 [facility] ([place] Comment on above: Performed By: #### C AION, LAC, MORPH, DIFF, K, MG, CK, CBC, HFP ####[place] [address] Basophil %, Manual 0.0 % Normal 0.0-2.5 On license of [facility] ([place]) Comment on above: Performed By: #### C AION, LAC, MORPH, DIFF, K, MG, CK, CBC, HFP ####[place] [address] Basophil, Abs Manual 0.0 10 3/mcL Normal 0.0-0.3 [facility] ([place]) Comment on above: Performed By: #### C AION, LAC, MORPH, DIFF, K, MG, CK, CBC, HFP ####[place] [address] Eosinophil %, Manual 0.0 % Normal 0.0-6.0 [facility] ([place] Comment on above: Performed By: #### C AION, LAC, MORPH, DIFF, K, MG, CK, CBC, HFP ####[place] [address] Eosinophil, Abs Manual 0.0 10 3/mcL Normal 0.0-0.7 [facility] ([place] Comment on above: Performed By: #### C AION, LAC, MORPH, DIFF, K, MG, CK, CBC, HFP ####[place] [address] Lymphocyte %, Manual 4.0 % Low 20.0-40.0 [facility] ([place] Comment on above: Performed By: #### C AION, LAC, MORPH, DIFF, K, MG, CK, CBC, HFP ####[place] [address] Lymphocyte, Abs Manual 1.8 10 3/mcL Normal 0.9-4.3 [facility] ([place] Comment on above: Performed By: #### C AION, LAC, MORPH, DIFF, K, MG, CK, CBC, HFP ####[place] [address] Metamyelocyte 1.0 % Normal [facility] ([place] Comment on above: Performed By: #### C AION, LAC, MORPH, DIFF, K, MG, CK, CBC, HFP ####[place] [address] Monocyte %, Manual 10.0 % Normal 2.0-13.0 On license of [facility] ([place] Comment on above: Performed By: #### C AION, LAC, MORPH, DIFF, K, MG, CK, CBC, HFP ####[place] [address] Monocyte, Abs Manual 4.5 10 3/mcL High 0.1-1.4 [facility] ([place] Comment on above: Performed By: #### C AION, LAC, MORPH, DIFF, K, MG, CK, CBC, HFP ####[place] [address] Neutrophil %, Manual 84.0 % High 50.0-75.0 [facility] ([place] Comment on above: Performed By: #### C AION, LAC, MORPH, DIFF, K, MG, CK, CBC, HFP ####[place] [address] Neutrophil, Abs Manual 38.0 10 3/mcL High 2.3-8.1 [facility] ([place] Comment on above: Performed By: #### C AION, LAC, MORPH, DIFF, K, MG, CK, CBC, HFP ####[place] [address] Nucleated RBC 0.0 /100 WBC Normal [facility] ([place] Comment on above: Performed By: #### C AION, LAC, MORPH, DIFF, K, MG, CK, CBC, HFP ####[place] [address] .Morphon 04-16-2024 Anisocytosis Ql (Bld) 1+ Normal [facility] ([place] Comment on above: Performed By: #### C BC, ADIFF, GFR, MORPH, BMP, ANEU ####[place] [address] Hypochrom 1+ Normal [facility] ([place] Comment on above: Performed By: #### C BC, ADIFF, GFR, MORPH, BMP, ANEU ####[place] [address] Microcytosis 1+ Normal [facility] ([place] Comment on above: Performed By: #### C BC, ADIFF, GFR, MORPH, BMP, ANEU ####[place] [address] Platelet Estimate Normal [facility] ([place] Comment on above: Performed By: #### C BC, ADIFF, GFR, MORPH, BMP, ANEU ####[place] [address] Toxic Gran 1+ Normal [facility] ([place] Comment on above: Performed By: #### C BC, ADIFF, GFR, MORPH, BMP, ANEU ####[place] [address] Anisocytosis Ql (Bld) 1+ Normal [facility] ([place] Comment on above: Performed By: #### C AION, LAC, MORPH, DIFF, K, MG, CK, CBC, HFP ####[place] [address] Large Platelets Few Normal [facility] ([place] Comment on above: Performed By: #### C AION, LAC, MORPH, DIFF, K, MG, CK, CBC, HFP ####[place] [address] Microcytosis 1+ Normal [facility] ([place] Comment on above: Performed By: #### C AION, LAC, MORPH, DIFF, K, MG, CK, CBC, HFP ####[place] [address] Ovalocytes 1+ Normal [facility] ([place] Comment on above: Performed By: #### C AION, LAC, MORPH, DIFF, K, MG, CK, CBC, HFP ####[address] [address] Platelet Estimate Normal Normal [facility] ([place] Comment on above: Performed By: #### C AION, LAC, MORPH, DIFF, K, MG, CK, CBC, HFP ####[address] [address] Poik 1+ Normal [facility] ([place] Comment on above: Performed By: #### C AION, LAC, MORPH, DIFF, K, MG, CK, CBC, HFP ####[place] [address] .NEUABSon 04-16-2024 Neutrophil, Absolute 28.0 10 3/mcL High 2.3-8.1 [facility] ([place] Comment on above: Performed By: #### C BC, ADIFF, GFR, MORPH, BMP, ANEU ####[place] [address] AMPICILLIN+SULBACTAM:SUSC:PT :ISOLATE:ORDQN:MICon 04-16-2024 Ampicillin+Sulbactam MARTI [Susc] Light [...] days. Neisseria gonorrhoeae: Negative Ureaplasma urealyticum: Negative [facility] Work Phone: Serratia marcescens Serratia marcescens [facility] Work Phone: Ampicillin+Sulbactam MARTI [Berry sc]on 04-16-2024 Enterococcus faecalis Enterococcus faecalis [facility] Work Phone: Group B Beta Hemolytic Strep (Strep agalactiae) Group B Beta Hemolytic Strep (Strep agalactiae) [facility] Work Phone: GS 3+ Mononuclear cells 4+ Gram Positive Cocci 2+ Gram Positive Rods Rare Epithelial cells 2+ Polymorphonuclear cells [facility] Work Phone: Lactobacillus gasseri Lactobacillus gasseri [facility] Work Phone: Staphylococcus epidermidis Staphylococcus epidermidis [facility] Work Phone: BGon 04-16-2024 Base excess Calc (Bld) [Moles/Vol] -8.9000 mmol/L Normal [facility] ([place] Comment on above: Performed By: #### B G ####[address] [address] CO2 [Moles/Vol] 17.6 mmol/L Low 22.0-30.0 [facility] ([place] Comment on above: Performed By: #### B G ####[address] [address] HCO3 (Bld) [Moles/Vol] 16.5 mmol/L Low 21.0-29.0 [facility] ([place] Comment on above: Performed By: #### B G ####[address] [address] Oxygen (Bld) [Partial pressure] 110.9 mm[Hg] High 74.0-108.0 [facility] ([place] Comment on above: Performed By: #### B G ####[address] [address] Oxygen saturation in Blood 98.9 % High 92.0-96.0 [facility] ([place] Comment on above: Performed By: #### B G ####[address] [address] pCO2 33.7 mmHg Normal 32.0-46.0 [facility] ([place] Comment on above: Performed By: #### B G ####[address] [address] pH (Bld) 7.309 [pH] Low 7.380-7.46 0 [facility] ([place] Comment on above: Performed By: #### B G ####[address] [address] Base excess Calc (Bld) [Moles/Vol] -10.91909 mmol/L Normal [facility] ([place] Comment on above: Performed By: #### B G ####[address] [address] CO2 [Moles/Vol] 16.3 mmol/L Low 22.0-30.0 [facility] ([place] Comment on above: Performed By: #### B G ####[address] [address] HCO3 (Bld) [Moles/Vol] 15.3 mmol/L Low 21.0-29.0 [facility] ([place] Comment on above: Performed By: #### B G ####[address] [address] Oxygen (Bld) [Partial pressure] 137.0 mm[Hg] High 74.0-108.0 [facility] ([place] Comment on above: Performed By: #### B G ####[address] [address] Oxygen saturation in Blood 99.7 % High 92.0-96.0 [facility] ([place] Comment on above: Performed By: #### B G ####[address] [address] pCO2 33.0 mmHg Normal 32.0-46.0 [facility] ([place] Comment on above: Performed By: #### B G ####[address] [address] pH (Bld) 7.284 [pH] Low 7.380-7.46 0 [facility] ([place]) Comment on above: Performed By: #### B G ####[address] [address] Base excess Calc (Bld) [Moles/Vol] -14.63408 mmol/L Normal [facility] ([place]) Comment on above: Order Comment: vrb- called critical pH to CELSO Raman 04/16/2024 04:27:43 EDT SAS Performed By: #### B G ####[address] [address] CO2 [Moles/Vol] 16.3 mmol/L Low 22.0-30.0 [facility] ([place]) Comment on above: Order Comment: vrb- called critical pH to CELSO Raman 04/16/2024 04:27:43 EDT SAS Performed By: #### B G ####[address] [address] HCO3 (Bld) [Moles/Vol] 14.8 mmol/L Low 21.0-29.0 [facility] ([place]) Comment on above: Order Comment: vrb- called critical pH to CELSO Raman 04/16/2024 04:27:43 EDT SAS Performed By: #### B G ####[address] [address] Oxygen (Bld) [Partial pressure] 86.3 mm[Hg] Normal 74.0-108.0 [facility] ([place] Comment on above: Order Comment: vrb- called critical pH to CELSO Raman 04/16/2024 04:27:43 EDT SAS Performed By: #### B G ####[address] [address] Oxygen saturation in Blood 95.4 % Normal 92.0-96.0 [facility] ([place] Comment on above: Order Comment: vrb- called critical pH to CELSO Raman 04/16/2024 04:27:43 EDT SAS Performed By: #### B G ####[address] [address] pCO2 48.6 mmHg High 32.0-46.0 [facility] ([place] Comment on above: Order Comment: vrb- called critical pH to CELSO Raman 04/16/2024 04:27:43 EDT SAS Performed By: #### B G ####[address] [address] pH (Bld) 7.102 [pH] Critically abnormal 7.380-7.46 0 [facility] ([place] Comment on above: Order Comment: vrb- called critical pH to CELSO Raman 04/16/2024 04:27:43 EDT [facility] Performed By: #### B G ####[address] [address] Base excess Calc (Bld) [Moles/Vol] -15.39018 mmol/L Normal [facility] ([place] Comment on above: Performed By: #### B G ####[address] [address] CO2 [Moles/Vol] 13.1 mmol/L Low 22.0-30.0 [facility] ([place] Comment on above: Performed By: #### B G ####[place] [address] HCO3 (Bld) [Moles/Vol] 12.1 mmol/L Low 21.0-29.0 [facility] ([place] Comment on above: Performed By: #### Marco G ####[place] [address] Oxygen (Bld) [Partial pressure] 124.7 mm[Hg] High 74.0-108.0 [facility] ([place] Comment on above: Performed By: #### Marco G ####[place] [address] Oxygen saturation in Blood 98.9 % High 92.0-96.0 [facility] ([place] Comment on above: Performed By: #### B G ####[address] [address] pCO2 33.1 mmHg Normal 32.0-46.0 [facility] ([place] Comment on above: Performed By: #### B G ####[address] [address] pH (Bld) 7.182 [pH] Critically abnormal 7.380-7.46 0 [facility] ([place] Comment on above: Performed By: #### B G ####[address] [address] BMPon 04-16-2024 BUN/Creatinine Ratio 20.5 ratio Normal 10.0-22.0 [facility] ([place] Comment on above: Performed By: #### C BC, ADIFF, GFR, MORPH, BMP, ANEU ####[address] [address] Calcium [Mass/Vol] 8.3 mg/dL Low 8.7-10.4 On license of [facility] ([place] Comment on above: Performed By: #### C BC, ADIFF, GFR, MORPH, BMP, ANEU ####[address] [address] Chloride [Moles/Vol] 107 mmol/L Normal 98-110 [facility] ([place] Comment on above: Performed By: #### C BC, ADIFF, GFR, MORPH, BMP, ANEU ####[address] [address] CO2 [Moles/Vol] 19 mmol/L Low 22-32 [facility] ([place] Comment on above: Performed By: #### C BC, ADIFF, GFR, MORPH, BMP, ANEU ####[address] [address] Creatinine [Mass/Vol] 3.86 mg/dL High 0.60-1.40 [facility] ([place] Comment on above: Performed By: #### C BC, ADIFF, GFR, MORPH, BMP, ANEU ####[address] [address] Electrolyte Balance 8.0 mEq/L Normal 4.0-15.0 [facility] ([place] Comment on above: Performed By: #### C BC, ADIFF, GFR, MORPH, BMP, ANEU ####[address] [address] Glucose [Mass/Vol] 337 mg/dL High 70-110 On license of [facility] ([place] Comment on above: Performed By: #### C BC, ADIFF, GFR, MORPH, BMP, ANEU ####[address] [address] Potassium [Moles/Vol] 5.0 mmol/L Normal 3.5-5.0 [facility] ([place] Comment on above: Performed By: #### C BC, ADIFF, GFR, MORPH, BMP, ANEU ####[address] [address] Sodium [Moles/Vol] 134 mmol/L Low 136-145 On license of [facility] ([place] Comment on above: Performed By: #### C BC, ADIFF, GFR, MORPH, BMP, ANEU ####[address] [address] Urea nitrogen [Mass/Vol] 79.0 mg/dL High 8.0-22.0 [facility] ([place] Comment on above: Performed By: #### C BC, ADIFF, GFR, MORPH, BMP, ANEU ####[address] [address] BUN/Creatinine Ratio 20.7 ratio Normal 10.0-22.0 [facility] ([place] Comment on above: Performed By: #### P RO, TROPHS, BMP, MG, GFR, PHOS ####[address] [address] Calcium [Mass/Vol] 8.8 mg/dL Normal 8.7-10.4 On license of [facility] ([place] Comment on above: Performed By: #### P RO, TROPHS, BMP, MG, GFR, PHOS ####[address] [address] Chloride [Moles/Vol] 107 mmol/L Normal 98-110 [facility] ([place] Comment on above: Performed By: #### P RO, TROPHS, BMP, MG, GFR, PHOS ####[address] [address] CO2 [Moles/Vol] 19 mmol/L Low 22-32 [facility] ([place] Comment on above: Performed By: #### P RO, TROPHS, BMP, MG, GFR, PHOS ####[address] [address] Creatinine [Mass/Vol] 3.82 mg/dL High 0.60-1.40 [facility] ([place] Comment on above: Performed By: #### P RO, TROPHS, BMP, MG, GFR, PHOS ####[place] [address] Electrolyte Balance 8.0 mEq/L Normal 4.0-15.0 [facility] ([place] Comment on above: Performed By: #### P RO, TROPHS, BMP, MG, GFR, PHOS ####[place] [address] Glucose [Mass/Vol] 421 mg/dL Critically abnormal 70-110 [facility] ([place] Comment on above: Performed By: #### P RO, TROPHS, BMP, MG, GFR, PHOS ####[place] [address] Potassium [Moles/Vol] 6.3 mmol/L Critically abnormal 3.5-5.0 [facility] ([place] Comment on above: Performed By: #### P RO, TROPHS, BMP, MG, GFR, PHOS ####[place] [address] Sodium [Moles/Vol] 134 mmol/L Low 136-145 On license of [facility] ([place] Comment on above: Performed By: #### P RO, TROPHS, BMP, MG, GFR, PHOS ####[place] [address] Urea nitrogen [Mass/Vol] 79.0 mg/dL High 8.0-22.0 [facility] ([place] Comment on above: Performed By: #### P RO, TROPHS, BMP, MG, GFR, PHOS ####[place] [address] CAIONon 04-16-2024 Calcium Ionized 1.12 mmol/L Normal 1.12-1.32 [facility] ([place] Comment on above: Performed By: #### C AION, LAC, MORPH, DIFF, K, MG, CK, CBC, HFP ####[place] [address] CBCon 04-16-2024 Erythrocyte distribution width (RBC) [Ratio] 16.3 % High 11.5-15.5 [facility] ([place] Comment on above: Performed By: #### C BC, ADIFF, GFR, MORPH, BMP, ANEU ####[place] [address] Hematocrit (Bld) [Volume fraction] 22.2 % Low 40.0-52.0 [facility] ([place] Comment on above: Performed By: #### C BC, ADIFF, GFR, MORPH, BMP, ANEU ####[place] [address] Hgb 7.0 G/dL Low 13.0-17.5 [facility] ([place] Comment on above: Performed By: #### C BC, ADIFF, GFR, MORPH, BMP, ANEU ####[place] [address] MCH (RBC) [Entitic mass] 24.6 pg Low 27.0-33.0 [facility] ([place] Comment on above: Performed By: #### C BC, ADIFF, GFR, MORPH, BMP, ANEU ####[place] [address] MCHC 31.8 G/dL Low 32.0-36.0 [facility] [place] Comment on above: Performed By: #### C BC, ADIFF, GFR, MORPH, BMP, ANEU ####[place] [address] MCV (RBC) [Entitic vol] 77.3 fL Low 81.0-100.0 [facility] ([place] Comment on above: Performed By: #### C BC, ADIFF, GFR, MORPH, BMP, ANEU ####[place] [address] Platelet 445 10 3/mcL Normal 150-450 [facility] ([place] Comment on above: Performed By: #### C BC, ADIFF, GFR, MORPH, BMP, ANEU ####[place] [address] Platelet mean volume (Bld) [Entitic vol] 8.5 fL Normal 6.4-10.5 [facility] ([place] Comment on above: Performed By: #### C BC, ADIFF, GFR, MORPH, BMP, ANEU ####[place] [address] RBC 2.86 10 6/mcL Low 4.50-6.00 [facility] ([place] Comment on above: Performed By: #### C BC, ADIFF, GFR, MORPH, BMP, ANEU ####[place] [address] WBC 31.4 10 3/mcL High 4.5-10.8 [facility] ([place] Comment on above: Performed By: #### C BC, ADIFF, GFR, MORPH, BMP, ANEU ####[place] [address] Erythrocyte distribution width (RBC) [Ratio] 16.5 % High 11.5-15.5 [facility] ([place] Comment on above: Performed By: #### C AION, LAC, MORPH, DIFF, K, MG, CK, CBC, HFP ####[place] [address] Hematocrit (Bld) [Volume fraction] 24.4 % Low 40.0-52.0 [facility] ([place] Comment on above: Performed By: #### C AION, LAC, MORPH, DIFF, K, MG, CK, CBC, HFP ####[place] [address] Hgb 7.5 G/dL Low 13.0-17.5 [facility] ([place] Comment on above: Performed By: #### C AION, LAC, MORPH, DIFF, K, MG, CK, CBC, HFP ####[place] [address] MCH (RBC) [Entitic mass] 24.2 pg Low 27.0-33.0 [facility] ([place] Comment on above: Performed By: #### C AION, LAC, MORPH, DIFF, K, MG, CK, CBC, HFP ####[place] [address] MCHC 30.8 G/dL Low 32.0-36.0 [facility] ([place] Comment on above: Performed By: #### C AION, LAC, MORPH, DIFF, K, MG, CK, CBC, HFP ####[place] [address] MCV (RBC) [Entitic vol] 78.7 fL Low 81.0-100.0 [facility] ([place] Comment on above: Performed By: #### C AION, LAC, MORPH, DIFF, K, MG, CK, CBC, HFP ####[place] [address] Platelet 485 10 3/mcL High 150-450 [facility] ([place] Comment on above: Performed By: #### C AION, LAC, MORPH, DIFF, K, MG, CK, CBC, HFP ####[place] [address] Platelet mean volume (Bld) [Entitic vol] 8.5 fL Normal 6.4-10.5 [facility] ([place] Comment on above: Performed By: #### C AION, LAC, MORPH, DIFF, K, MG, CK, CBC, HFP ####[place] [address] RBC 3.10 10 6/mcL Low 4.50-6.00 [facility] ([place] Comment on above: Performed By: #### C AION, LAC, MORPH, DIFF, K, MG, CK, CBC, HFP ####[place] [address] WBC 44.8 10 3/mcL High 4.5-10.8 [facility] ([place] Comment on above: Performed By: #### C AION, LAC, MORPH, DIFF, K, MG, CK, CBC, HFP ####[place] [address] CKon 04-16-2024 CK [Catalytic activity/Vol] 48 U/L Normal 7-185 [facility] ([place] Comment on above: Performed By: #### C AION, LAC, MORPH, DIFF, K, MG, CK, CBC, HFP ####[place] [address] HFPon 04-16-2024 Bili Indirect Unable to Calculate Normal 0.1-10.0 [facility] ([place]) Comment on above: Result Comment: Unab le to calculate this test result accurately. Results used to calculate this test are outside the reportable range. Performed By: #### C AION, LAC, MORPH, DIFF, K, MG, CK, CBC, HFP ####[place] [address] Albumin Level 1.2 G/dL Low 3.2-4.8 [facility] ([place] Comment on above: Performed By: #### C AION, LAC, MORPH, DIFF, K, MG, CK, CBC, HFP ####[place] [address] Albumin/Globulin [Mass ratio] 0.3 {ratio} Low 0.9-1.6 [facility] ([place] Comment on above: Performed By: #### C AION, LAC, MORPH, DIFF, K, MG, CK, CBC, HFP ####[place] [address] ALP [Catalytic activity/Vol] 190 U/L High 38-126 [facility] ([place] Comment on above: Performed By: #### C AION, LAC, MORPH, DIFF, K, MG, CK, CBC, HFP ####[place] [address] ALT [Catalytic activity/Vol] 13 U/L Normal 12-55 [facility] ([place] Comment on above: Performed By: #### C AION, LAC, MORPH, DIFF, K, MG, CK, CBC, HFP ####[place] [address] AST [Catalytic activity/Vol] 17 U/L Normal 8-34 [facility] ([place] Comment on above: Performed By: #### C AION, LAC, MORPH, DIFF, K, MG, CK, CBC, HFP ####[place] [address] Bili Direct 0.1 mg/dL Normal 0.0-0.4 [facility] ([place] Comment on above: Result Comment: Use of this assay is not recommended for patients undergoing treatment with eltrombopag due to the potential for falsely elevated results. Performed By: #### C AION, LAC, MORPH, DIFF, K, MG, CK, CBC, HFP ####[place] [address] Bili Total <0.20 Normal 0.20-1.20 [facility] ([place] Comment on above: Result Comment: Use of this assay is not recommended for patients undergoing treatment with eltrombopag due to the potential for falsely elevated results. Performed By: #### C AION, LAC, MORPH, DIFF, K, MG, CK, CBC, HFP ####[place] [address] Globulin 4.7 G/dL High 1.5-3.8 [facility] ([place] Comment on above: Performed By: #### C AION, LAC, MORPH, DIFF, K, MG, CK, CBC, HFP ####[place] [address] Total Protein 5.9 G/dL Normal 5.7-8.2 [facility] ([place] Comment on above: Result Comment: No te - New Reference Range in effect 20 Performed By: #### C AION, LAC, MORPH, DIFF, K, MG, CK, CBC, HFP ####[place] [address] HHon 04-16-2024 Hematocrit (Bld) [Volume fraction] 22.8 % Low 40.0-52.0 [facility] ([place] Comment on above: Performed By: #### H H, K ####[place] [address] Hgb 7.2 G/dL Low 13.0-17.5 [facility] ([place] Comment on above: Performed By: #### H H, K ####[place] [address] Rainer 04-16-2024 Potassium [Moles/Vol] 4.8 mmol/L Normal 3.5-5.0 [facility] ([place]) Comment on above: Performed By: #### H H, K ####[address] [address] Potassium [Moles/Vol] 5.8 mmol/L High 3.5-5.0 [facility] ([place]) Comment on above: Performed By: #### K ####[address] [address] Potassium [Moles/Vol] 7.1 mmol/L Critically abnormal 3.5-5.0 [facility] ([place] Comment on above: Performed By: #### C AION, LAC, MORPH, DIFF, K, MG, CK, CBC, HFP ####[place] [address] LABORATORYOrdered By: SYSTEM SYSTEM on 04-16-2024 Bili [...] 48 U/L Normal 7 - 185 U/L AH ADM SS Poikilocytosis LM Ql (Bld) 1+ *NA* (04/16/24 1:52 AM) Invalid Interpretation Code Workflow SS LACon 04-16-2024 Lactic Acid Lvl 1.8 mmol/L Normal 0.2-2.0 [facility] ([place] Comment on above: Performed By: #### L AC ####[place] [address] Lactic Acid Lvl 1.2 mmol/L Normal 0.2-2.0 [facility] ([place] Comment on above: Performed By: #### L AC ####[place] [address] Lactic Acid Lvl 1.3 mmol/L Normal 0.2-2.0 [facility] ([place] Comment on above: Performed By: #### L AC ####[address] [address] Lactic Acid Lvl 1.3 mmol/L Normal 0.2-2.0 [facility] ([place] Comment on above: Performed By: #### C AION, LAC, MORPH, DIFF, K, MG, CK, CBC, HFP ####[address] [address] MGon 04-16-2024 Magnesium [Mass/Vol] 1.8 mg/dL Normal 1.6-2.4 [facility] ([place] Comment on above: Performed By: #### P RO, TROPHS, BMP, MG, GFR, PHOS ####[address] [address] Magnesium [Mass/Vol] 1.9 mg/dL Normal 1.6-2.4 [facility] ([place] Comment on above: Performed By: #### C AION, LAC, MORPH, DIFF, K, MG, CK, CBC, HFP ####[address] [address] No Panel Informationon 04-16 Culture Urine No growth at 48 hours. [facility] Work Phone: Culture Wound Deep Panel Light Group B Beta Hemolytic Strep (Strep agalactiae) Sensitivity testing is not recommended for one of the following reasons: 1. Established susceptibility patterns are available or 2. Interpretative criteria are not available. Light Serratia marcescens Refer to previous culture for susceptibility. [id number] Moderate Normal skin adela present. Sensitivity testing not indicated. No anaerobes isolated at 5 days. Neisseria gonorrhoeae: Negative Ureaplasma urealyticum: Negative [facility] Work Phone: GS 2+ Gram Positive Luis Angel s 1+ Gram Positive Cocci Rare Mononuclear cells [facility] Work Phone: PHOSon 04-16-2024 Phosphate [Mass/Vol] 8.7 mg/dL High 2.4-5.1 [facility] ([place] Comment on above: Result Comment: No te - New Reference Range in effect 20 Performed By: #### P RO, TROPHS, BMP, MG, GFR, PHOS ####[address] [address] PROon 04-16-2024 INR Coag (PPP) [Relative time] 1.4 {INR} Normal [facility] ([place] Comment on above: Result Comment: [employer] (CHEST, 1992, 102:[id number])recommended therapeutic range for oral anticoagulant therapy is:LOW RISK: Prophylaxis of venous thrombosis INR: 2.0-3.0 Treatment of pulmonary embolism 2.0-3.0 Prevention of systemic embolism 2.0-3.0HIGH RISK: Mechanical prosthetic valves 2.5-3.5 Performed By: #### P RO, TROPHS, BMP, MG, GFR, PHOS ####[place] [address] PT Coag (PPP) [Time] 15.8 s High 9.0-14.4 [facility] ([place] Comment on above: Result Comment: Effe ctive 06/02/08, Protime results may be affected by some antibiotics (i.e. Ciprofloxacin, Azithromycin, Bactrim) which may potentiate the action of oral anticoagulants, with further increases in Protime/INR. Performed By: #### P RO, TROPHS, BMP, MG, GFR, PHOS ####[place] [address] RFPon 04-16-2024 Albumin Level 1.7 G/dL Low 3.2-4.8 [facility] ([place] Comment on above: Order Comment: pleas e use previously drawn labs Performed By: #### R FP, GFR ####[place] [address] BUN/Creatinine Ratio 20.8 ratio Normal 10.0-22.0 [facility] ([place] Comment on above: Order Comment: pleas e use previously drawn labs Performed By: #### R FP, GFR ####[place] [address] Calcium [Mass/Vol] 8.3 mg/dL Low 8.7-10.4 On license of [facility] ([place]) Comment on above: Order Comment: pleas e use previously drawn labs Performed By: #### R FP, GFR ####[address] [address] Chloride [Moles/Vol] 107 mmol/L Normal 98-110 [facility] ([place] Comment on above: Order Comment: pleas e use previously drawn labs Performed By: #### R FP, GFR ####[address] [address] CO2 [Moles/Vol] 16 mmol/L Low 22-32 [facility] ([place] Comment on above: Order Comment: pleas e use previously drawn labs Performed By: #### R FP, GFR ####[address] [address] Creatinine [Mass/Vol] 3.79 mg/dL High 0.60-1.40 [facility] ([place] Comment on above: Order Comment: pleas e use previously drawn labs Performed By: #### R FP, GFR ####[address] [address] Electrolyte Balance 10.0 mEq/L Normal 4.0-15.0 [facility] ([place] Comment on above: Order Comment: pleas e use previously drawn labs Performed By: #### R FP, GFR ####[address] [address] Glucose [Mass/Vol] 354 mg/dL High 70-110 On license of [facility] ([place] Comment on above: Order Comment: pleas e use previously drawn labs Performed By: #### R FP, GFR ####[address] [address] Phosphate [Mass/Vol] 8.8 mg/dL High 2.4-5.1 [facility] ([place] Comment on above: Order Comment: pleas e use previously drawn labs Result Comment: No te - New Reference Range in effect 20 Performed By: #### R FP, GFR ####[address] [address] Potassium [Moles/Vol] 6.8 mmol/L Critically abnormal 3.5-5.0 [facility] ([place] Comment on above: Order Comment: pleas e use previously drawn labs Performed By: #### R FP, GFR ####[place] [address] Sodium [Moles/Vol] 133 mmol/L Low 136-145 On license of [facility] ([place] Comment on above: Order Comment: pleas e use previously drawn labs Performed By: #### R FP, GFR ####[place] [address] Urea nitrogen [Mass/Vol] 79.0 mg/dL High 8.0-22.0 [facility] ([place] Comment on above: Order Comment: pleas e use previously drawn labs Performed By: #### R FP, GFR ####[place] [address] TROPHSon 04-16-2024 High Sensitivity Troponin I 6 ng/L Normal 0-54 [facility] ([place] Comment on above: Result Comment: High Sensitive Troponin I Reference Ranges:Female: 0-34 ng/LMale: 0-54 ng/LTesting performed on x.ai IM analyzer using direct chemiluminescent technology. Performed By: #### P RO, TROPHS, BMP, MG, GFR, PHOS ####[place] [address] VANCRon 04-16-2024 LDose Vancomycin: (random) See eMAR Normal [facility] ([place] Comment on above: Performed By: #### V ANCR ####[place] [address] Vancomycin Lvl (random) 16.5 mcg/mL Normal [facility] ([place] Comment on above: Performed By: #### V ANCR ####[place] [address] XR CHEST 1 VIEWon 04-16-2024 XR CHEST 1 VIEW Normal [facility] [place] XR CHEST 1 VIEW Normal [facility] [place] XR CHEST 1 VIEW Normal [facility] [place] XR ENTERIC TUBE PLACEMENTon 04-16-2024 XR ENTERIC TUBE PLACEMENT Normal [facility] ([place] .Auto Diffon 04-15-2024 Basophil, Absolute 0.1 10 3/mcL Normal 0.0-0.2 [facility] ([place] Comment on above: Performed By: #### M ORPH, CMP, PHV, MDW, CBC, GFR, ADIFF, ANEU, PRO, LAC, DOMITILA, DIFF ####[place] [address] [place], [place] [address] Basophils/100 WBC (Bld) 0.2 % Normal 0.0-2.5 [facility] ([place] Comment on above: Performed By: #### M ORPH, CMP, PHV, MDW, CBC, GFR, ADIFF, ANEU, PRO, LAC, DOMITILA, DIFF ####[place] [address] [place], [place] [address] Eosinophil, Absolute 0.2 10 3/mcL Normal 0.0-0.4 [facility] ([place] Comment on above: Performed By: #### M ORPH, CMP, PHV, MDW, CBC, GFR, ADIFF, ANEU, PRO, LAC, DOMITILA, DIFF ####[place] [address] [place], [place] [address] Eosinophils/100 WBC (Bld) 0.5 % Normal 0.0-7.0 [facility] ([place] Comment on above: Performed By: #### M ORPH, CMP, PHV, MDW, CBC, GFR, ADIFF, ANEU, PRO, LAC, DOMITILA, DIFF ####[place] [address] [place], [place] [address] Lymphocyte, Absolute 1.9 10 3/mcL Normal 0.8-3.9 [facility] ([place] Comment on above: Performed By: #### M ORPH, CMP, PHV, MDW, CBC, GFR, ADIFF, ANEU, PRO, LAC, DOMITILA, DIFF ####[place] [address] [place], [place] [address] Lymphocytes/100 WBC (Bld) 4.0 % Low 10.0-50.0 [facility] ([place] Comment on above: Performed By: #### M ORPH, CMP, PHV, MDW, CBC, GFR, ADIFF, ANEU, PRO, LAC, DOMITILA, DIFF ####[place] [address] [place], [place] [address] Monocyte, Absolute 2.7 10 3/mcL High 0.2-1.0 [facility] ([place] Comment on above: Performed By: #### M ORPH, CMP, PHV, MDW, CBC, GFR, ADIFF, ANEU, PRO, LAC, DOMITILA, DIFF ####[place] [address] [place], [place] [address] Monocytes/100 WBC (Bld) 5.8 % Normal 1.7-13.0 [facility] ([place] Comment on above: Performed By: #### M ORPH, CMP, PHV, MDW, CBC, GFR, ADIFF, ANEU, PRO, LAC, DOMITILA, DIFF ####[place] [address] [place], [place] [address] Neutrophils/100 WBC (Bld) 89.5 % High 37.0-80.0 [facility] ([place] Comment on above: Performed By: #### M ORPH, CMP, PHV, MDW, CBC, GFR, ADIFF, ANEU, PRO, LAC, DOMITILA, DIFF ####[place] [address] [place], [place] [address] .GFRon 04-15-2024 GFR Non- 13 ml/min/1.73sqm Normal [facility] ([place] Comment on above: Result Comment: GFR Population [...] ADIFF, ANEU, PRO, LAC, DOMITILA, DIFF ####[place] [address] [place], [place] [address] GFR 15 ml/min/1.73sqm Normal [facility] ([place] Comment on above: Result Comment: GFR Population [...] GFR, ADIFF, ANEU, PRO, LAC, DOMITILA, DIFF ####[address] [place], [place] [address] .MDWon 04-15-2024 Monocyte Distribution Width 23.75 High 0.00-20.00 [facility] ([place] Comment on above: Result Comment: For adults in ED, MDW>20.0 may be associated with a higher risk of sepsis during the first 12hrs of hospital admissionThe predictive value of MDW for identifying sepsis in patients with hematological abnormalities has not been established Performed By: #### M ORPH, CMP, PHV, MDW, CBC, GFR, ADIFF, ANEU, PRO, LAC, DOMITILA, DIFF ####[place] [address] [place], [place] [address] .Manual Diffon 04-15-2024 Bands 10.0 % High 0.0-5.0 [facility] ([place] Comment on above: Performed By: #### M ORPH, CMP, PHV, MDW, CBC, GFR, ADIFF, ANEU, PRO, LAC, DOMITILA, DIFF ####[place] [address] [place], [place] [address] Basophil %, Manual 0.0 % Normal 0.0-2.5 On [facility] of [facility] ([place] Comment on above: Performed By: #### M ORPH, CMP, PHV, MDW, CBC, GFR, ADIFF, ANEU, PRO, LAC, DOMITILA, DIFF ####[place] [address] [place], [place] [address] Basophil, Abs Manual 0.0 10 3/mcL Normal 0.0-0.2 [facility] ([place]) Comment on above: Performed By: #### M ORPH, CMP, PHV, MDW, CBC, GFR, ADIFF, ANEU, PRO, LAC, DOMITILA, DIFF ####[address] [place], [place] [address] Eosinophil %, Manual 0.0 % Normal 0.0-7.0 [facility] ([place] Comment on above: Performed By: #### M ORPH, CMP, PHV, MDW, CBC, GFR, ADIFF, ANEU, PRO, LAC, DOMITILA, DIFF ####[address] [place], [place] [address] Eosinophil, Abs Manual 0.0 10 3/mcL Normal 0.0-0.4 [facility] ([place] Comment on above: Performed By: #### M ORPH, CMP, PHV, MDW, CBC, GFR, ADIFF, ANEU, PRO, LAC, DOMITILA, DIFF ####[place] [address] [place], [place] [address] Lymphocyte %, Manual 4.0 % Low 10.0-50.0 [facility] ([place] Comment on above: Performed By: #### M ORPH, CMP, PHV, MDW, CBC, GFR, ADIFF, ANEU, PRO, LAC, DOMITILA, DIFF ####[address] [place], [place] [address] Lymphocyte, Abs Manual 1.9 10 3/mcL Normal 0.8-3.9 [facility] ([place] Comment on above: Performed By: #### M ORPH, CMP, PHV, MDW, CBC, GFR, ADIFF, ANEU, PRO, LAC, DOMITILA, DIFF ####[place] [address] [place], [place] [address] Monocyte %, Manual 2.0 % Normal 1.7-13.0 [facility] of [facility] ([place] Comment on above: Performed By: #### M ORPH, CMP, PHV, MDW, CBC, GFR, ADIFF, ANEU, PRO, LAC, DOMITILA, DIFF ####[address] [place], [place] [address] Monocyte, Abs Manual 0.9 10 3/mcL Normal 0.2-1.0 [facility] ([place] Comment on above: Performed By: #### M ORPH, CMP, PHV, MDW, CBC, GFR, ADIFF, ANEU, PRO, LAC, DOMITILA, DIFF ####[place] [address] [place], [place] [address] Neutrophil %, Manual 84.0 % High 37.0-80.0 [facility] ([place] Comment on above: Performed By: #### M ORPH, CMP, PHV, MDW, CBC, GFR, ADIFF, ANEU, PRO, LAC, DOMITILA, DIFF ####[place] [address] [place], [place] [address] Neutrophil, Abs Manual 43.2 10 3/mcL High 2.9-6.2 [facility] ([place] Comment on above: Performed By: #### M ORPH, CMP, PHV, MDW, CBC, GFR, ADIFF, ANEU, PRO, LAC, DOMITILA, DIFF ####[place] [address] [place], [place] [address] Nucleated RBC 0.0 /100 WBC Normal [facility] ([place] Comment on above: Performed By: #### M ORPH, CMP, PHV, MDW, CBC, GFR, ADIFF, ANEU, PRO, LAC, DOMITILA, DIFF ####[place] [address] [place], [place] [address] .Morphon 04-15-2024 Anisocytosis Ql (Bld) 1+ Normal [facility] ([place] Comment on above: Performed By: #### M ORPH, CMP, PHV, MDW, CBC, GFR, ADIFF, ANEU, PRO, LAC, DOMITILA, DIFF ####[place] [address] [place], [place] [address] Hypochrom 1+ Normal [facility] ([place] Comment on above: Performed By: #### M ORPH, CMP, PHV, MDW, CBC, GFR, ADIFF, ANEU, PRO, LAC, DOMITILA, DIFF ####[place] [address] [place] [address] Platelet Estimate Slt Increased Normal [facility] ([place] Comment on above: Performed By: #### M ORPH, CMP, PHV, MDW, CBC, GFR, ADIFF, ANEU, PRO, LAC, DOMITILA, DIFF ####[place] [address] [place] [address] .NEUABSon 04-15-2024 Neutrophil, Absolute 41.2 10 3/mcL High 2.9-6.2 [facility] ([place] Comment on above: Performed By: #### M ORPH, CMP, PHV, MDW, CBC, GFR, ADIFF, ANEU, PRO, LAC, DOMITILA, DIFF ####[place] [address] [place] [id number] ACTONon 04-15-2024 Acetone (s) Negative Normal Negative [facility] ([place] Comment on above: Performed By: #### M ORPH, CMP, PHV, MDW, CBC, GFR, ADIFF, ANEU, PRO, LAC, DOMITILA, DIFF ####[place] [address] [place], [place] [address] BGon 04-15-2024 Base excess Calc (Bld) [Moles/Vol] -16.77[address] mmol/L Normal [facility] ([place] Comment on above: Performed By: #### B G ####[address] [place] [id number] CO2 [Moles/Vol] 11.5 mmol/L Low 22.0-30.0 [facility] ([place] Comment on above: Performed By: #### B G ####[address] [place], [place] [address] HCO3 (Bld) [Moles/Vol] 10.6 mmol/L Low 21.0-29.0 [facility] ([place] Comment on above: Performed By: #### Marco G ####[address] [place], [place] [address] Oxygen (Bld) [Partial pressure] 82.4 mm[Hg] Normal 74.0-108.0 [facility] ([place] Comment on above: Performed By: #### Marco G ####[address] [place], [place] [address] Oxygen saturation in Blood 96.1 % High 92.0-96.0 [facility] ([place] Comment on above: Performed By: #### Marco G ####[place] [address] [place], [place] [address] pCO2 27.8 mmHg Low 32.0-46.0 [facility] ([place] Comment on above: Performed By: #### Marco G ####[address] [place], [place] [address] pH (Bld) 7.199 [pH] Critically abnormal 7.380-7.46 0 [facility] ([place] Comment on above: Performed By: #### Marco G ####[place] [address] [place], [place] [address] CBCon 04-15-2024 Erythrocyte distribution width (RBC) [Ratio] 16.6 % High 11.5-14.5 [facility] ([place] Comment on above: Performed By: #### M ORPH, CMP, PHV, MDW, CBC, GFR, ADIFF, ANEU, PRO, LAC, DOMITILA, DIFF ####[place] [address] [place], [place] [address] Hematocrit (Bld) [Volume fraction] 28.5 % Low 42.0-52.0 [facility] [place] Comment on above: Performed By: #### M ORPH, CMP, PHV, MDW, CBC, GFR, ADIFF, ANEU, PRO, LAC, DOMITILA, DIFF ####[place] [address] [place], [place] [address] Hgb 9.2 G/dL Low 14.0-18.0 [facility] ([place] Comment on above: Performed By: #### M ORPH, CMP, PHV, MDW, CBC, GFR, ADIFF, ANEU, PRO, LAC, DOMITILA, DIFF ####[place] [address] [place], [place] [address] MCH (RBC) [Entitic mass] 25.1 pg Low 27.0-31.2 [facility] [place] Comment on above: Performed By: #### M ORPH, CMP, PHV, MDW, CBC, GFR, ADIFF, ANEU, PRO, LAC, DOMITILA, DIFF ####[place] [address] [place], [place] [address] MCHC 32.2 G/dL Normal 31.8-35.4 [facility] ([place] Comment on above: Performed By: #### M ORPH, CMP, PHV, MDW, CBC, GFR, ADIFF, ANEU, PRO, LAC, DOMITILA, DIFF ####[place] [address] [place], [place] [address] MCV (RBC) [Entitic vol] 78.0 fL Low 80.0-94.0 [facility] ([place] Comment on above: Performed By: #### M ORPH, CMP, PHV, MDW, CBC, GFR, ADIFF, ANEU, PRO, LAC, DOMITILA, DIFF ####[id number] [place], [place] [address] Platelet 550 10 3/mcL High 130-400 [facility] ([place]) Comment on above: Performed By: #### M ORPH, CMP, PHV, MDW, CBC, GFR, ADIFF, ANEU, PRO, LAC, DOMITILA, DIFF ####[id number] [place], [place] [address] Platelet mean volume (Bld) [Entitic vol] 8.5 fL Normal 7.4-10.4 [facility] ([place]) Comment on above: Performed By: #### M ORPH, CMP, PHV, MDW, CBC, GFR, ADIFF, ANEU, PRO, LAC, DOMITILA, DIFF ####[address] [place], [place] [address] RBC 3.65 10 6/mcL Low 4.04-6.13 [facility] ([place]) Comment on above: Performed By: #### M ORPH, CMP, PHV, MDW, CBC, GFR, ADIFF, ANEU, PRO, LAC, DOMITILA, DIFF ####[place] [address] [place], [place] [address] WBC 46.0 10 3/mcL High 4.6-10.8 [facility] ([place] Comment on above: Performed By: #### M ORPH, CMP, PHV, MDW, CBC, GFR, ADIFF, ANEU, PRO, LAC, DOMITILA, DIFF ####[place] [address] [place], [place] [address] CMPon 04-15-2024 ALT [Catalytic activity/Vol] 13 U/L Low 16-63 [facility] ([place] Comment on above: Performed By: #### M ORPH, CMP, PHV, MDW, CBC, GFR, ADIFF, ANEU, PRO, LAC, DOMITILA, DIFF ####[place] [address] [place], [place] [address] Potassium [Moles/Vol] 8.0 mmol/L Critically abnormal 3.5-5.1 [facility] ([place] Comment on above: Performed By: #### M ORPH, CMP, PHV, MDW, CBC, GFR, ADIFF, ANEU, PRO, LAC, DOMITILA, DIFF ####[place] [address] [place], [place] [address] Albumin Level 1.7 G/dL Low 3.5-5.0 [facility] ([place] Comment on above: Performed By: #### M ORPH, CMP, PHV, MDW, CBC, GFR, ADIFF, ANEU, PRO, LAC, DOMITILA, DIFF ####[place] [address] [place], [place] [address] Albumin/Globulin [Mass ratio] 0.3 {ratio} Low 1.1-2.5 [facility] ([place] Comment on above: Performed By: #### M ORPH, CMP, PHV, MDW, CBC, GFR, ADIFF, ANEU, PRO, LAC, DOMITILA, DIFF ####[place] [address] [place], [place] [address] ALP [Catalytic activity/Vol] 231 U/L High 40-135 [facility] ([place] Comment on above: Performed By: #### M ORPH, CMP, PHV, MDW, CBC, GFR, ADIFF, ANEU, PRO, LAC, DOMITILA, DIFF ####[place] [address] [place], [place] [address] AST [Catalytic activity/Vol] 11 U/L Normal 10-40 [facility] ([place] Comment on above: Performed By: #### M ORPH, CMP, PHV, MDW, CBC, GFR, ADIFF, ANEU, PRO, LAC, DOMITILA, DIFF ####[place] [address] [place], [place] [address] Bili Total 2.0 mg/dL High 0.2-1.0 [facility] ([place] Comment on above: Result Comment: Use of this assay is not recommended for patients undergoing treatment with eltrombopag due to the potential for falsely elevated results. Performed By: #### M ORPH, CMP, PHV, MDW, CBC, GFR, ADIFF, ANEU, PRO, LAC, DOMITILA, DIFF ####[place] [address] [place], [place] [address] BUN/Creatinine Ratio 17 ratio Normal 7-27 [facility] ([place] Comment on above: Performed By: #### M ORPH, CMP, PHV, MDW, CBC, GFR, ADIFF, ANEU, PRO, LAC, DOMITILA, DIFF ####[place] [address] [place], [place] [address] Calcium [Mass/Vol] 8.4 mg/dL Normal 8.4-10.2 On license of [facility] ([place]) Comment on above: Performed By: #### M ORPH, CMP, PHV, MDW, CBC, GFR, ADIFF, ANEU, PRO, LAC, DOMITILA, DIFF ####[address] [place], [place] [address] Chloride [Moles/Vol] 97 mmol/L Low 98-107 [facility] ([place] Comment on above: Performed By: #### M ORPH, CMP, PHV, MDW, CBC, GFR, ADIFF, ANEU, PRO, LAC, DOMITILA, DIFF ####[address] [place], [place] [address] CO2 [Moles/Vol] 14 mmol/L Low 22-29 [facility] ([place] Comment on above: Performed By: #### M ORPH, CMP, PHV, MDW, CBC, GFR, ADIFF, ANEU, PRO, LAC, DOMITILA, DIFF ####[place] [address] [place], [place] [address] Creatinine [Mass/Vol] 5.01 mg/dL High 0.70-1.30 [facility] ([place]) Comment on above: Performed By: #### M ORPH, CMP, PHV, MDW, CBC, GFR, ADIFF, ANEU, PRO, LAC, DOMITILA, DIFF ####[address] [place], [place] [address] Electrolyte Balance 15.0 mEq/L Normal 4.0-15.0 [facility] ([place] Comment on above: Performed By: #### M ORPH, CMP, PHV, MDW, CBC, GFR, ADIFF, ANEU, PRO, LAC, DOMITILA, DIFF ####[address] [place], [place] [address] Globulin 5.9 G/dL Normal [facility] ([place] Comment on above: Performed By: #### M ORPH, CMP, PHV, MDW, CBC, GFR, ADIFF, ANEU, PRO, LAC, DOMITILA, DIFF ####[address] [place], [place] [address] Glucose [Mass/Vol] 371 mg/dL High 70-105 On license of [facility] ([place] Comment on above: Performed By: #### M ORPH, CMP, PHV, MDW, CBC, GFR, ADIFF, ANEU, PRO, LAC, DOMITILA, DIFF ####[place] [address] [place], [place] [address] Sodium [Moles/Vol] 126 mmol/L Low 136-145 On license of [facility] ([place] Comment on above: Performed By: #### M ORPH, CMP, PHV, MDW, CBC, GFR, ADIFF, ANEU, PRO, LAC, DOMITILA, DIFF ####[place] [address] [place], [place] [address] Total Protein 7.6 G/dL Normal 6.4-8.2 [facility] ([place] Comment on above: Performed By: #### M ORPH, CMP, PHV, MDW, CBC, GFR, ADIFF, ANEU, PRO, LAC, DOMITILA, DIFF ####[place] [address] [place], [place] [address] Urea nitrogen [Mass/Vol] 85 mg/dL High 7-18 [facility] ([place] Comment on above: Performed By: #### M ORPH, CMP, PHV, MDW, CBC, GFR, ADIFF, ANEU, PRO, LAC, DOMITILA, DIFF ####[place] [address] [place], [place] [address] CT ABDOMEN/PELVIS W/O CONTRA STon 04-15-2024 CT ABDOMEN/PELVIS W/O CONTRAST Normal [facility] ([place]) LABORATORYOrdered By: Sidney Abdi on 04-15-2024 Base [...] [employer] SS Comment on above: Interpretive Data: Simon briones [employer] (CHEST, 1991, 102:312S-25S) [...] 370 mg/dL High 70 - 110 mg/dL [facility] Work Phone: LABORATORYOrdered By: SYSTEM SYSTEM [...] - 10.8 10^3/mcL AO Workflow SS LACon 04-15-2024 Lactic Acid Lvl 1.2 mmol/L Normal 0.4-2.0 [facility] ([place] Comment on above: Performed By: #### M ORPH, CMP, PHV, MDW, CBC, GFR, ADIFF, ANEU, PRO, LAC, DOMITILA, DIFF ####[address] [place], [place] [address] No Panel Informationon 04-15 Microscopic examination of blood, culture Culture has been received in lab and is no growth to date. Routine cultures are held for 5 days. [facility] Work Phone: PHVon 04-15-2024 pH Venous 7.202 Low 7.380-7.46 0 [facility] ([place] Comment on above: Performed By: #### M ORPH, CMP, PHV, MDW, CBC, GFR, ADIFF, ANEU, PRO, LAC, DOMITILA, DIFF ####[place] [address] [place], [place] [address] PROon 04-15-2024 PT Coag (PPP) [Time] 15.3 s High 9.0-14.4 [facility] ([place] Comment on above: Performed By: #### M ORPH, CMP, PHV, MDW, CBC, GFR, ADIFF, ANEU, PRO, LAC, DOMITILA, DIFF ####[address] [place], [place] [address] PT International Ratio 1.3 Normal [facility] ([place]) Comment on above: Result Comment: [employer] (CHEST, 1992, 102:312S-25S)recommended therapeutic range for oral anticoagulant therapy is:LOW RISK: Prophylaxis of venous thrombosis INR: 2.0-3.0 Treatment of pulmonary embolism 2.0-3.0 Prevention of systemic embolism 2.0-3.0HIGH RISK: Mechanical prosthetic valves 2.5-3.5 Performed By: #### M ORPH, CMP, PHV, MDW, CBC, GFR, ADIFF, ANEU, PRO, LAC, DOMITILA, DIFF ####[place] [address] [place], [place] [address] .Urinalysis Microscopic (AO) on 04-06-2024 UA Amorphus 2+ /hpf Normal [facility] ([place] Comment on above: Performed By: #### U A, UAMICAO ####[place] [address] [place] [address] UA Bacteria 2+ /hpf Abnormal [facility] ([place] Comment on above: Performed By: #### U A, UAMICAO ####[place] [address] [place] [address] UA RBC 0-5 Abnormal None Seen [facility] ([place] Comment on above: Performed By: #### U A, UAMICAO ####[place] [address] [place] [address] UA Squam Epithelial LOADED Abnormal None Seen [facility] ([place] Comment on above: Performed By: #### U A, UAMICAO ####[place] [address] [place] [id number] UA WBC 5-10 Abnormal None Seen [facility] ([place] Comment on above: Performed By: #### U A, UAMICAO ####[place] [address] [place] [address] LABORATORYOrdered By: Cherelle Dasilva on 04-06-2024 Appearance [...] 385 mg/dL High 70 - 110 mg/dL [facility] Work Phone: UAon 04-06-2024 Color (U) Yellow Normal [facility] ([place] Comment on above: Performed By: #### U A UAMICAO ####[facility] [place], [place] [address] Glucose (U) [Mass/Vol] 500 mg/dL Abnormal Negative [facility] ([place]) Comment on above: Performed By: #### U A UAMICAO ####[facility] [place], [place] [address] Ketones Ql (U) Negative Normal Negative [facility] ([place] Comment on above: Performed By: #### U A UAMICAO ####[facility] [place] [address] UA Appear Clear Normal Clear [facility] ([place] Comment on above: Performed By: #### U A, UAMICAO ####[place] [address] [place] [address] UA Blood Trace Abnormal Negative [facility] ([place] Comment on above: Performed By: #### U A, UAMICAO ####[place] [address] [place] [address] UA Leuk Est Negative Normal Negative [facility] ([place] Comment on above: Performed By: #### U A, UAMICAO ####[place] [address] [place] [address] UA Nitrite Negative Normal Negative [facility] ([place] Comment on above: Performed By: #### U A, UAMICAO ####[place] [address] [place] [address] UA pH 5.5 Normal 5.0 - 8.0 [facility] ([place] Comment on above: Performed By: #### U A, UAMICAO ####[place] [address] [place] [address] UA Protein 100 mg/dL Abnormal Negative [facility] ([place] Comment on above: Performed By: #### U A, UAMICAO ####[place] [address] [place] [address] UA Spec Grav 1.020 Normal 1.015-1.02 5 [facility] ([place] Comment on above: Performed By: #### U A, UAMICAO ####[place] [address] [place] [address] UA Specimen Type Not Given Normal [facility] ([place] Comment on above: Performed By: #### U A, UAMICAO ####[place] [address] [place] [address] UA Urobilinogen 0.2 E.U./dL Normal 0.2-1.0 [facility] ([place] Comment on above: Performed By: #### U A, UAMICAO ####[place] [address] [place] [address] Urobilinogen (U) [Mass/Vol] Negative Normal Negative [facility] ([place] Comment on above: Performed By: #### DORA Bird ####[place] [address] [place], [place] [address] XR PELVIS 1 OR 2 VIEWSon XR PELVIS 1 OR 2 VIEWS Normal [facility] ([place]) .GFRon 03-11-2024 GFR 31 ml/min/1.73sqm Normal [facility] ([place] Comment on above: Result Comment: GFR Population [...] mL/min/1.73 square meters Performed By: #### Ceci Johnson, GFR, BMP ####[place] [address] [place], [place] [address] GFR Non- 25 ml/min/1.73sqm Normal [facility] ([place] Comment on above: Result Comment: GFR Population [...] #### M G, GFR, BMP ####[place] [address] [place], [place] [address] A1C SOon 03-11-2024 HbA1c (Bld) [Mass fraction] % High 4.8-5.6 [facility] ([place] Comment on above: Result Comment: Ve rified by repeat analysis Prediabetes: 5.7 - 6.4 Diabetes: >6.4 Glycemic control for adults with diabetes: <7.0Performed At: [facility] [address] [place], [place] [id number] Vincent PhD Ph:[phone] Performed By: #### M G, FT3, CBC, TSH, ADIFF, GFR, FT4, BMP, FERR, ANEU, FES ####[place] [address] [place], [place] [address]#### [id number] ####[place] [address] BMPon 03-11-2024 BUN/Creatinine Ratio 16 ratio Normal 7-27 [facility] ([place] Comment on above: Performed By: #### M G, GFR, BMP ####[place] [address] [place], [place] [address] Calcium [Mass/Vol] 8.9 mg/dL Normal 8.4-10.2 On license of [facility] ([place] Comment on above: Performed By: #### M G, GFR, BMP ####[place] [address] [place], [place] [address] Chloride [Moles/Vol] 104 mmol/L Normal 98-107 [facility] ([place] Comment on above: Performed By: #### M G, GFR, BMP ####[place] [address] [place], [place] [address] CO2 [Moles/Vol] 24 mmol/L Normal 22-29 [facility] ([place] Comment on above: Performed By: #### M G, GFR, BMP ####[place] [address] [place], [place] [address] Creatinine [Mass/Vol] 2.71 mg/dL High 0.70-1.30 [facility] ([place]) Comment on above: Performed By: #### M G, GFR, BMP ####[place] [address] [place], [place] [address] Electrolyte Balance 11.0 mEq/L Normal 4.0-15.0 [facility] ([place] Comment on above: Performed By: #### M G, GFR, BMP ####[place] [address] [place], [place] [address] Glucose [Mass/Vol] 265 mg/dL High 70-105 On license of [facility] ([place] Comment on above: Performed By: #### M G, GFR, BMP ####[place] [address] [place], [place] [address] Potassium [Moles/Vol] 4.8 mmol/L Normal 3.5-5.1 [facility] ([place] Comment on above: Performed By: #### Ceci G, GFR, BMP ####[place] [address] [place], [place] [address] Sodium [Moles/Vol] 139 mmol/L Normal 136-145 On [facility] of [facility] ([place] Comment on above: Performed By: #### M G, GFR, BMP ####[place] [address] [place], [place] [address] Urea nitrogen [Mass/Vol] 44 mg/dL High 7-18 [facility] ([place] Comment on above: Performed By: #### M G, GFR, BMP ####[place] [address] [place], [place] [address] LABORATORYOrdered By: Bright Blount on 03-11-2024 Blood Glucose Testing Reason Routine (03/11/24 11:31 AM) [facility] Work Phone: Glucose [Mass/Vol] 356 mg/dL High 70 - 110 mg/dL [facility] Work Phone: Blood Glucose Testing Reason Routine (03/11/24 7:45 AM) [facility] Work Phone: Glucose [Mass/Vol] 292 mg/dL High 70 - 110 mg/dL [facility] Work Phone: LABORATORYOrdered By: SYSTEM SYSTEM [...] 03-11-2024 Magnesium [Mass/Vol] 1.9 mg/dL Normal 1.8-2.4 [facility] ([place] Comment on above: Performed By: #### M G, GFR, BMP ####[place] [address] [place], [place] [address] .GFRon 03-10-2024 GFR 31 ml/min/1.73sqm Normal [facility] ([place] Comment on above: Result Comment: GFR Population [...] By: #### G FR, MG, BMP ####[place] [address] [place], [place] [address] GFR Non- 26 ml/min/1.73sqm Normal [facility] ([place] Comment on above: Result Comment: GFR Population [...] 15 mL/min/1.73 square meters Performed By: #### Elizabeth SOTO MG, BMP ####[place] [address] [place], [place] [address] BMPon 03-10-2024 BUN/Creatinine Ratio 16 ratio Normal 7-27 [facility] ([place] Comment on above: Performed By: #### Elizabeth SOTO MG, BMP ####[place] [address] [place], [place] [address] Calcium [Mass/Vol] 8.8 mg/dL Normal 8.4-10.2 On [facility] of [facility] ([place] Comment on above: Performed By: #### Elizabeth SOTO MG, BMP ####[place] [address] [place], [place] [address] Chloride [Moles/Vol] 104 mmol/L Normal 98-107 [facility] ([place] Comment on above: Performed By: #### Elizabeth SOTO MG, BMP ####[place] [address] [place], [place] [address] CO2 [Moles/Vol] 24 mmol/L Normal 22-29 [facility] ([place] Comment on above: Performed By: #### Elizabeth SOTO MG, BMP ####[place] [address] [place], [place] [address] Creatinine [Mass/Vol] 2.67 mg/dL High 0.70-1.30 [facility] ([place] Comment on above: Performed By: #### Elizabeth FR MG, BMP ####[place] [address] [place], [place] [address] Electrolyte Balance 10.0 mEq/L Normal 4.0-15.0 [facility] ([place] Comment on above: Performed By: #### G FR MG, BMP ####[place] [address] [place], [place] [address] Glucose [Mass/Vol] 339 mg/dL High 70-105 On [facility] of [facility] ([place] Comment on above: Performed By: #### G , MG, BMP ####[place] [address] [place], [place] [address] Potassium [Moles/Vol] 4.6 mmol/L Normal 3.5-5.1 [facility] ([place] Comment on above: Performed By: #### G , MG, BMP ####[place] [address] [place], [place] [address] Sodium [Moles/Vol] 138 mmol/L Normal 136-145 On [facility] of [facility] ([place] Comment on above: Performed By: #### G , MG, BMP ####[place] [address] [place], [place] [address] Urea nitrogen [Mass/Vol] 43 mg/dL High 7-18 [facility] ([place] Comment on above: Performed By: #### G FR MG, BMP ####[place] [address] [place], [place] [address] LABORATORYOrdered By: Bernie Willoughby on 03-10-2024 Glucose [Mass/Vol] 258 mg/dL High 70 - 110 mg/dL [facility] Work Phone: LABORATORYOrdered By: Edward Galeano on 03-10-2024 Blood Glucose Testing Reason Routine (03/10/24 4:28 PM) [facility] Work Phone: LABORATORYOrdered By: SYSTEM SYSTEM [...] - 27 ratio AO ADM SS MGon 03-10-2024 Magnesium [Mass/Vol] 1.6 mg/dL Low 1.8-2.4 [facility] ([place] Comment on above: Performed By: #### G FR, MG, BMP ####[place] [address] .Auto Diffon 03-09-2024 Basophil, Absolute 0.1 10 3/mcL Normal 0.0-0.2 [facility] ([place] Comment on above: Performed By: #### M G, FT3, CBC, TSH, ADIFF, GFR, FT4, BMP, FERR, ANEU, FES ####[place] [address]#### [id number] ####[address] [address] Basophils/100 WBC (Bld) 0.5 % Normal 0.0-2.5 [facility] ([place]) Comment on above: Performed By: #### M G, FT3, CBC, TSH, ADIFF, GFR, FT4, BMP, FERR, ANEU, FES ####[place] [address]#### [id number] ####[address] [address] Eosinophil, Absolute 0.5 10 3/mcL High 0.0-0.4 [facility] ([place]) Comment on above: Performed By: #### M G, FT3, CBC, TSH, ADIFF, GFR, FT4, BMP, FERR, ANEU, FES ####[place] [address]#### 736709 ####[address] [address] Eosinophils/100 WBC (Bld) 3.6 % Normal 0.0-7.0 [facility] ([place] Comment on above: Performed By: #### M G, FT3, CBC, TSH, ADIFF, GFR, FT4, BMP, FERR, ANEU, FES ####[place] [address]#### [id number] ####[address] [address] Lymphocyte, Absolute 1.9 10 3/mcL Normal 0.8-3.9 [facility] ([place] Comment on above: Performed By: #### M G, FT3, CBC, TSH, ADIFF, GFR, FT4, BMP, FERR, ANEU, FES ####[place] [address]#### [id number] ####[address] [address] Lymphocytes/100 WBC (Bld) 13.1 % Normal 10.0-50.0 [facility] ([place] Comment on above: Performed By: #### M G, FT3, CBC, TSH, ADIFF, GFR, FT4, BMP, FERR, ANEU, FES ####[place] [address]#### [id number] ####[address] [address] Monocyte, Absolute 1.2 10 3/mcL High 0.2-1.0 [facility] ([place] Comment on above: Performed By: #### M G, FT3, CBC, TSH, ADIFF, GFR, FT4, BMP, FERR, ANEU, FES ####[place] [address]#### [id number] ####[address] [address] Monocytes/100 WBC (Bld) 8.3 % Normal 1.7-13.0 [facility] ([place]) Comment on above: Performed By: #### M G, FT3, CBC, TSH, ADIFF, GFR, FT4, BMP, FERR, ANEU, FES ####[address] [place], [place] [address]#### [id number] ####[address] [address] Neutrophils/100 WBC (Bld) 74.5 % Normal 37.0-80.0 [facility] ([place] Comment on above: Performed By: #### M G, FT3, CBC, TSH, ADIFF, GFR, FT4, BMP, FERR, ANEU, FES ####[place] [address] [place] [id number]#### [id number] ####[address] [address] .GFRon 03-09-2024 GFR Non- 25 ml/min/1.73sqm Normal [facility] ([place] Comment on above: Result Comment: GFR Population [...] GFR, FT4, BMP, FERR, ANEU, FES ####[place] [address] [place], [place] [address]#### [id number] ####[address] [address] GFR 31 ml/min/1.73sqm Normal [facility] ([place] Comment on above: Result Comment: GFR Population [...] ADIFF, GFR, FT4, BMP, FERR, ANEU, FES ####[place] [address]#### [id number] ####[address] [address] .NEUABSon 03-09-2024 Neutrophil, Absolute 10.5 10 3/mcL High 2.9-6.2 [facility] ([place] Comment on above: Performed By: #### M G, FT3, CBC, TSH, ADIFF, GFR, FT4, BMP, FERR, ANEU, FES ####[place] [address]#### [id number] ####[place] [address] BMPon 03-09-2024 BUN/Creatinine Ratio 17 ratio Normal 7-27 [facility] ([place] Comment on above: Performed By: #### M G, FT3, CBC, TSH, ADIFF, GFR, FT4, BMP, FERR, ANEU, FES ####[place] [address]#### [id number] ####[address] [address] Calcium [Mass/Vol] 8.5 mg/dL Normal 8.4-10.2 [facility] of [facility] ([place] Comment on above: Performed By: #### M G, FT3, CBC, TSH, ADIFF, GFR, FT4, BMP, FERR, ANEU, FES ####[place] [address]#### [id number] ####[address] [address] Chloride [Moles/Vol] 103 mmol/L Normal 98-107 [facility] ([place] Comment on above: Performed By: #### M G, FT3, CBC, TSH, ADIFF, GFR, FT4, BMP, FERR, ANEU, FES ####[place] [address]#### [id number] ####[address] [address] CO2 [Moles/Vol] 23 mmol/L Normal 22-29 [facility] ([place] Comment on above: Performed By: #### M G, FT3, CBC, TSH, ADIFF, GFR, FT4, BMP, FERR, ANEU, FES ####[place] [address]#### [id number] ####[place] [address] Creatinine [Mass/Vol] 2.73 mg/dL High 0.70-1.30 [facility] ([place] Comment on above: Performed By: #### M G, FT3, CBC, TSH, ADIFF, GFR, FT4, BMP, FERR, ANEU, FES ####[place] [address]#### [id number] ####[place] [address] Electrolyte Balance 9.0 mEq/L Normal 4.0-15.0 [facility] ([place] Comment on above: Performed By: #### M G, FT3, CBC, TSH, ADIFF, GFR, FT4, BMP, FERR, ANEU, FES ####[place] [address]#### [id number] ####[place] [address] Glucose [Mass/Vol] 267 mg/dL High 70-105 [facility] of [facility] ([place] Comment on above: Performed By: #### M G, FT3, CBC, TSH, ADIFF, GFR, FT4, BMP, FERR, ANEU, FES ####[place] [address]#### [id number] ####[place] [address] Potassium [Moles/Vol] 4.5 mmol/L Normal 3.5-5.1 [facility] ([place] Comment on above: Performed By: #### M G, FT3, CBC, TSH, ADIFF, GFR, FT4, BMP, FERR, ANEU, FES ####[place] [address]#### [id number] ####[place] [address] Sodium [Moles/Vol] 135 mmol/L Low 136-145 On [facility] of [facility] ([place] Comment on above: Performed By: #### M G, FT3, CBC, TSH, ADIFF, GFR, FT4, BMP, FERR, ANEU, FES ####[place] [address]#### [id number] ####[place] [address] Urea nitrogen [Mass/Vol] 47 mg/dL High 7-18 [facility] ([place] Comment on above: Performed By: #### M G, FT3, CBC, TSH, ADIFF, GFR, FT4, BMP, FERR, ANEU, FES ####[place] [address]#### [id number] ####[place] [address] CBCon 03-09-2024 Erythrocyte distribution width (RBC) [Ratio] 15.6 % High 11.5-14.5 [facility] ([place] Comment on above: Performed By: #### M G, FT3, CBC, TSH, ADIFF, GFR, FT4, BMP, FERR, ANEU, FES ####[place] [address]#### [id number] ####[place] [address] Hematocrit (Bld) [Volume fraction] 29.8 % Low 42.0-52.0 [facility] ([place] Comment on above: Performed By: #### M G, FT3, CBC, TSH, ADIFF, GFR, FT4, BMP, FERR, ANEU, FES ####[place] [address]#### [id number] ####[place] [address] Hgb 9.8 G/dL Low 14.0-18.0 [facility] ([place] Comment on above: Performed By: #### M G, FT3, CBC, TSH, ADIFF, GFR, FT4, BMP, FERR, ANEU, FES ####[place] [address]#### [id number] ####[place] [address] MCH (RBC) [Entitic mass] 25.9 pg Low 27.0-31.2 [facility] ([place] Comment on above: Performed By: #### M G, FT3, CBC, TSH, ADIFF, GFR, FT4, BMP, FERR, ANEU, FES ####[place] [address]#### [id number] ####[place] [address] MCHC 33.0 G/dL Normal 31.8-35.4 [facility] ([place]) Comment on above: Performed By: #### M G, FT3, CBC, TSH, ADIFF, GFR, FT4, BMP, FERR, ANEU, FES ####[place] [address]#### [id number] ####[place] [address] MCV (RBC) [Entitic vol] 78.6 fL Low 80.0-94.0 [facility] ([place]) Comment on above: Performed By: #### M G, FT3, CBC, TSH, ADIFF, GFR, FT4, BMP, FERR, ANEU, FES ####[place] [address]#### [id number] ####[place] [address] Platelet 300 10 3/mcL Normal 130-400 [facility] ([place]) Comment on above: Performed By: #### M G, FT3, CBC, TSH, ADIFF, GFR, FT4, BMP, FERR, ANEU, FES ####[place] [address]#### [id number] ####[place] [address] Platelet mean volume (Bld) [Entitic vol] 8.6 fL Normal 7.4-10.4 [facility] ([place]) Comment on above: Performed By: #### M G, FT3, CBC, TSH, ADIFF, GFR, FT4, BMP, FERR, ANEU, FES ####[place] [address]#### [id number] ####[place] [address] RBC 3.80 10 6/mcL Low 4.04-6.13 [facility] ([place]) Comment on above: Performed By: #### M G, FT3, CBC, TSH, ADIFF, GFR, FT4, BMP, FERR, ANEU, FES ####[place] [address]#### [id number] ####[place] [address] WBC 14.1 10 3/mcL High 4.6-10.8 [facility] ([place]) Comment on above: Performed By: #### M G, FT3, CBC, TSH, ADIFF, GFR, FT4, BMP, FERR, ANEU, FES ####[place] [address]#### [id number] ####[place] [address] Partha 03-09-2024 Ferritin [Mass/Vol] 179.0 ng/mL Normal 26.0-388.0 [facility] ([place]) Comment on above: Performed By: #### M G, FT3, CBC, TSH, ADIFF, GFR, FT4, BMP, FERR, ANEU, FES ####[place] [address]#### [id number] ####[place] [address] FESon 03-09-2024 Iron [Mass/Vol] 19 ug/dL Low 65-175 [facility] ([place] Comment on above: Performed By: #### M G, FT3, CBC, TSH, ADIFF, GFR, FT4, BMP, FERR, ANEU, FES ####[place] [address]#### [id number] ####[place] [address] Iron Sat 9 % Normal [facility] ([place] Comment on above: Performed By: #### M G, FT3, CBC, TSH, ADIFF, GFR, FT4, BMP, FERR, ANEU, FES ####[place] [address]#### [id number] ####[place] [address] TIBC 211 mcg/dL Low 250-450 [facility] ([place] Comment on above: Performed By: #### M G, FT3, CBC, TSH, ADIFF, GFR, FT4, BMP, FERR, ANEU, FES ####[place] [address]#### [id number] ####[place] [address] FT3on 03-09-2024 Free T3 [Mass/Vol] 1.68 pg/mL Low 2.30-4.00 On license of [facility] ([place]) Comment on above: Performed By: #### M G, FT3, CBC, TSH, ADIFF, GFR, FT4, BMP, FERR, ANEU, FES ####[place] 223547#### [id number] ####[place] [id number] FT4on 03-09-2024 Free T4 [Mass/Vol] 0.87 ng/dL Normal 0.76-1.46 On license of [facility] ([place]) Comment on above: Performed By: #### M G, FT3, CBC, TSH, ADIFF, GFR, FT4, BMP, FERR, ANEU, FES ####[place] [address] [place], [place] [address]#### [id number] ####[place] [address] LABORATORYOrdered By: SYSTEM SYSTEM on 03-09-2024 Basophil, [...] 10.8 10^3/mcL AO Workflow SS LABORATORYOrdered By: LABCOR P CONTRIBUTOR_SYSTEM on 03-09-2024 HbA1c (Bld) [Mass fraction] % High 4.8-5.6 Sendouts SS Comment on above: Result Comment: Ve rified by repeat analysis Prediabetes: 5.7 - 6.4 Diabetes: >6.4 Glycemic control for adults with diabetes: <7.0 Performed At: [facility] [address] [id number] Farrah Mclaughlin PhD Ph:[phone] MGon 03-09-2024 Magnesium [Mass/Vol] 1.7 mg/dL Low 1.8-2.4 [facility] ([place]) Comment on above: Performed By: #### M G, FT3, CBC, TSH, ADIFF, GFR, FT4, BMP, FERR, ANEU, FES ####[place] [address] [place], [place] [address]#### [id number] ####[place] [address] TSHon 03-09-2024 TSH Qn 0.80 m[IU]/L Normal 0.36-3.74 [facility] ([place] Comment on above: Performed By: #### M G, FT3, CBC, TSH, ADIFF, GFR, FT4, BMP, FERR, ANEU, FES ####[place] [address] [place], [place] [address]#### [id number] ####[place] [address] .Auto Diffon 03-08-2024 Basophil, Absolute 0.1 10 3/mcL Normal 0.0-0.2 [facility] ([place] Comment on above: Performed By: #### A DIFF, ANEU, MORPH, GFR, DOMITILA, MDW, MG, PHV, CBC, TROPHS, CMP ####[place] [address] [address] Basophils/100 WBC (Bld) 0.8 % Normal 0.0-2.5 [facility] ([place]) Comment on above: Performed By: #### A DIFF, ANEU, MORPH, GFR, DOMITILA, MDW, MG, PHV, CBC, TROPHS, CMP ####[address] [place], [place] [address] Eosinophil, Absolute 0.5 10 3/mcL High 0.0-0.4 [facility] ([place]) Comment on above: Performed By: #### A DIFF, ANEU, MORPH, GFR, DOMITILA, MDW, MG, PHV, CBC, TROPHS, CMP ####[facility] [place], [place] [address] Eosinophils/100 WBC (Bld) 4.0 % Normal 0.0-7.0 [facility] ([place]) Comment on above: Performed By: #### A DIFF, ANEU, MORPH, GFR, DOMITILA, MDW, MG, PHV, CBC, TROPHS, CMP ####[facility] [place], [place] [address] Lymphocyte, Absolute 1.6 10 3/mcL Normal 0.8-3.9 [facility] ([place]) Comment on above: Performed By: #### A DIFF, ANEU, MORPH, GFR, DOMITIAL, MDW, MG, PHV, CBC, TROPHS, CMP ####[place] [address] [place], [place] [address] Lymphocytes/100 WBC (Bld) 12.2 % Normal 10.0-50.0 [facility] ([place]) Comment on above: Performed By: #### A DIFF, ANEU, MORPH, GFR, DOMITILA, MDW, MG, PHV, CBC, TROPHS, CMP ####[facility] [place], [place] [address] Monocyte, Absolute 0.8 10 3/mcL Normal 0.2-1.0 [facility] ([place]) Comment on above: Performed By: #### A DIFF, ANEU, MORPH, GFR, DOMITILA, MDW, MG, PHV, CBC, TROPHS, CMP ####[facility] [place], [place] [address] Monocytes/100 WBC (Bld) 5.8 % Normal 1.7-13.0 [facility] ([place]) Comment on above: Performed By: #### A DIFF, ANEU, MORPH, GFR, DOMITILA, MDW, MG, PHV, CBC, TROPHS, CMP ####[place] [address] [place], [place] [address] Neutrophils/100 WBC (Bld) 77.2 % Normal 37.0-80.0 [facility] ([place]) Comment on above: Performed By: #### A DIFF, ANEU, MORPH, GFR, DOMITILA, MDW, MG, PHV, CBC, TROPHS, CMP ####[place] [address] [place], [place] [address] .GFRon 03-08-2024 GFR Non- 22 ml/min/1.73sqm Normal [facility] ([place]) Comment on above: Result Comment: GFR [...] MDW, MG, PHV, CBC, TROPHS, CMP ####[place] [address] [place], [place] [address] GFR 27 ml/min/1.73sqm Normal [facility] ([place]) Comment on above: Result Comment: GFR [...] MG, PHV, CBC, TROPHS, CMP ####[place] [address] [place], [place] [address] .MDWon 03-08-2024 Monocyte Distribution Width 19.79 Normal 0.00-20.00 [facility] ([place] Comment on above: Result Comment: For ED adult patients suspected of sepsis, MDW<=20.0 does not rule out sepsis or risk of sepsis Performed By: #### A DIFF, ANEU, MORPH, GFR, DOMITILA, MDW, MG, PHV, CBC, TROPHS, CMP ####[place] [address] [place], [place] [address] .Morphon 03-08-2024 Platelet Estimate Normal Normal [facility] ([place] Comment on above: Performed By: #### A DIFF, ANEU, MORPH, GFR, DOMITILA, MDW, MG, PHV, CBC, TROPHS, CMP ####[place] [address] [place] [id number] .NEUABSon 03-08-2024 Neutrophil, Absolute 10.3 10 3/mcL High 2.9-6.2 [facility] ([place]) Comment on above: Performed By: #### A DIFF, ANEU, MORPH, GFR, DOMITILA, MDW, MG, PHV, CBC, TROPHS, CMP ####[place] [address] [place], [place] [address] .Urinalysis Microscopic (AO) on 03-08-2024 UA RBC 0-5 Abnormal None Seen [facility] ([place] Comment on above: Performed By: #### U AMICAO, UA ####[place] [address] [place], [place] [address] UA Squam Epithelial 0-5 Abnormal None Seen [facility] ([place]) Comment on above: Performed By: #### U AMICAO, UA ####[place] [address] [place], [place] [address] UA WBC 0-5 Abnormal None Seen [facility] ([place] Comment on above: Performed By: #### U MARYBEL, UA ####[place] [address] [place], [place] [address] ACTONon 03-08-2024 Acetone (s) Negative Normal Negative [facility] ([place] Comment on above: Performed By: #### A DIFF, ANEU, MORPH, GFR, DOMITILA, MDW, MG, PHV, CBC, TROPHS, CMP ####[place] [address] [place], [place] [address] CBCon 03-08-2024 Erythrocyte distribution width (RBC) [Ratio] 15.7 % High 11.5-14.5 [facility] ([place] Comment on above: Performed By: #### A DIFF, ANEU, MORPH, GFR, DOMITILA, MDW, MG, PHV, CBC, TROPHS, CMP ####[address] [place], [place] [address] Hematocrit (Bld) [Volume fraction] 34.1 % Low 42.0-52.0 [facility] ([place] Comment on above: Performed By: #### A DIFF, ANEU, MORPH, GFR, DOMITILA, MDW, MG, PHV, CBC, TROPHS, CMP ####[place] [address] [place], [place] [address] Hgb 11.2 G/dL Low 14.0-18.0 [facility] ([place] Comment on above: Performed By: #### A DIFF, ANEU, MORPH, GFR, DOMITILA, MDW, MG, PHV, CBC, TROPHS, CMP ####[place] [address] [place], [place] [address] MCH (RBC) [Entitic mass] 26.0 pg Low 27.0-31.2 [facility] ([place] Comment on above: Performed By: #### A DIFF, ANEU, MORPH, GFR, DOMITILA, MDW, MG, PHV, CBC, TROPHS, CMP ####[place] [address] [place], [place] [address] MCHC 32.9 G/dL Normal 31.8-35.4 [facility] ([place] Comment on above: Performed By: #### A DIFF, ANEU, MORPH, GFR, DOMITILA, MDW, MG, PHV, CBC, TROPHS, CMP ####[place] [address] [place], [place] [address] MCV (RBC) [Entitic vol] 79.2 fL Low 80.0-94.0 [facility] ([place] Comment on above: Performed By: #### A DIFF, ANEU, MORPH, GFR, DOMITILA, MDW, MG, PHV, CBC, TROPHS, CMP ####[place] [address] [place], [place] [address] Platelet 338 10 3/mcL Normal 130-400 [facility] ([place] Comment on above: Performed By: #### A DIFF, ANEU, MORPH, GFR, DOMITILA, MDW, MG, PHV, CBC, TROPHS, CMP ####[place] [address] [place], [place] [address] Platelet mean volume (Bld) [Entitic vol] 8.7 fL Normal 7.4-10.4 [facility] ([place] Comment on above: Performed By: #### A DIFF, ANEU, MORPH, GFR, DOMITILA, MDW, MG, PHV, CBC, TROPHS, CMP ####[place] [address] [place], [place] [address] RBC 4.30 10 6/mcL Normal 4.04-6.13 [facility] ([place] Comment on above: Performed By: #### A DIFF, ANEU, MORPH, GFR, DOMITILA, MDW, MG, PHV, CBC, TROPHS, CMP ####[place] [address] [place], [place] [address] WBC 13.3 10 3/mcL High 4.6-10.8 [facility] ([place] Comment on above: Performed By: #### A DIFF, ANEU, MORPH, GFR, DOMITILA, MDW, MG, PHV, CBC, TROPHS, CMP ####[place] [address] [place], [place] [address] CKon 03-08-2024 CK [Catalytic activity/Vol] 172 U/L Normal 39-308 [facility] ([place] Comment on above: Performed By: #### C K ####[place] [address] [place], [place] [address] CMPon 03-08-2024 Albumin Level 2.9 G/dL Low 3.5-5.0 [facility] ([place] Comment on above: Performed By: #### A DIFF, ANEU, MORPH, GFR, DOMITILA, MDW, MG, PHV, CBC, TROPHS, CMP ####[place] [address] [place], [place] [address] Albumin/Globulin [Mass ratio] 0.6 {ratio} Low 1.1-2.5 [facility] ([place] Comment on above: Performed By: #### A DIFF, ANEU, MORPH, GFR, DOMITILA, MDW, MG, PHV, CBC, TROPHS, CMP ####[place] [address] [place], [place] [address] ALP [Catalytic activity/Vol] 133 U/L Normal 40-135 [facility] ([place] Comment on above: Performed By: #### A DIFF, ANEU, MORPH, GFR, DOMITILA, MDW, MG, PHV, CBC, TROPHS, CMP ####[place] [address] [place], [place] [address] ALT [Catalytic activity/Vol] 18 U/L Normal 16-63 [facility] ([place] Comment on above: Performed By: #### A DIFF, ANEU, MORPH, GFR, DOMITILA, MDW, MG, PHV, CBC, TROPHS, CMP ####[place] [address] [place], [place] [address] AST [Catalytic activity/Vol] 11 U/L Normal 10-40 [facility] ([place] Comment on above: Performed By: #### A DIFF, ANEU, MORPH, GFR, DOMITILA, MDW, MG, PHV, CBC, TROPHS, CMP ####[place] [address] [place], [place] [address] Bili Total 0.4 mg/dL Normal 0.2-1.0 [facility] ([place] Comment on above: Result Comment: Use of this assay is not recommended for patients undergoing treatment with eltrombopag due to the potential for falsely elevated results. Performed By: #### A DIFF, ANEU, MORPH, GFR, DOMITILA, MDW, MG, PHV, CBC, TROPHS, CMP ####[place] [address] [place], [place] [address] BUN/Creatinine Ratio 17 ratio Normal 7-27 [facility] ([place] Comment on above: Performed By: #### A DIFF, ANEU, MORPH, GFR, DOMITILA, MDW, MG, PHV, CBC, TROPHS, CMP ####[place] [address] [place], [place] [address] Calcium [Mass/Vol] 8.6 mg/dL Normal 8.4-10.2 On license of [facility] ([place]) Comment on above: Performed By: #### A DIFF, ANEU, MORPH, GFR, DOMITILA, MDW, MG, PHV, CBC, TROPHS, CMP ####[place] [address] [place], [place] [address] Chloride [Moles/Vol] 98 mmol/L Normal 98-107 [facility] ([place] Comment on above: Performed By: #### A DIFF, ANEU, MORPH, GFR, DOMITILA, MDW, MG, PHV, CBC, TROPHS, CMP ####[place] [address] [place], [place] [address] CO2 [Moles/Vol] 24 mmol/L Normal 22-29 [facility] ([place] Comment on above: Performed By: #### A DIFF, ANEU, MORPH, GFR, DOMITILA, MDW, MG, PHV, CBC, TROPHS, CMP ####[address] [place], [place] [address] Creatinine [Mass/Vol] 3.08 mg/dL High 0.70-1.30 [facility] ([place]) Comment on above: Performed By: #### A DIFF, ANEU, MORPH, GFR, DOMITILA, MDW, MG, PHV, CBC, TROPHS, CMP ####[place] [address] [place], [place] [address] Electrolyte Balance 11.0 mEq/L Normal 4.0-15.0 [facility] ([place] Comment on above: Performed By: #### A DIFF, ANEU, MORPH, GFR, DOMITILA, MDW, MG, PHV, CBC, TROPHS, CMP ####[place] [address] [place], [place] [address] Globulin 4.9 G/dL Normal [facility] ([place] Comment on above: Performed By: #### A DIFF, ANEU, MORPH, GFR, DOMITILA, MDW, MG, PHV, CBC, TROPHS, CMP ####[place] [address] [place], [place] [address] Glucose [Mass/Vol] 492 mg/dL Critically abnormal 70-105 [facility] ([place] Comment on above: Performed By: #### A DIFF, ANEU, MORPH, GFR, DOMITILA, MDW, MG, PHV, CBC, TROPHS, CMP ####[place] [address] [place], [place] [address] Potassium [Moles/Vol] 5.3 mmol/L High 3.5-5.1 [facility] ([place] Comment on above: Performed By: #### A DIFF, ANEU, MORPH, GFR, DOMITILA, MDW, MG, PHV, CBC, TROPHS, CMP ####[place] [address] [place], [place] [address] Sodium [Moles/Vol] 133 mmol/L Low 136-145 On license of [facility] ([place]) Comment on above: Performed By: #### A DIFF, ANEU, MORPH, GFR, DOMITILA, MDW, MG, PHV, CBC, TROPHS, CMP ####[place] [address] [place], [place] [address] Total Protein 7.8 G/dL Normal 6.4-8.2 [facility] ([place] Comment on above: Performed By: #### A DIFF, ANEU, MORPH, GFR, DOMITILA, MDW, MG, PHV, CBC, TROPHS, CMP ####[place] [address] [place], [place] [address] Urea nitrogen [Mass/Vol] 52 mg/dL High 7-18 [facility] ([place] Comment on above: Performed By: #### A DIFF, ANEU, MORPH, GFR, DOMITILA, MDW, MG, PHV, CBC, TROPHS, CMP ####[place] [address] [place], [place] [address] LABORATORYOrdered By: Joy Lomas on 03-08-2024 Appearance [...] ng/L Male: 0-76 ng/L Testing performed on [employer] using a homogeneous sandwich chemiluminescent immunoassay based on [employer] technology. WBC (Bld) [#/Vol] 13.3 103/mcL High 4.6 - 10.8 10^3/mcL AO Workflow SS MGon 03-08-2024 Magnesium [Mass/Vol] 1.6 mg/dL Low 1.8-2.4 [facility] ([place] Comment on above: Performed By: #### A DIFF, ANEU, MORPH, GFR, DOMITILA, MDW, MG, PHV, CBC, TROPHS, CMP ####[place] [address] [place], [place] [address] PHVon 03-08-2024 pH Venous 7.291 Low 7.380-7.46 0 [facility] ([place] Comment on above: Performed By: #### A DIFF, ANEU, MORPH, GFR, DOMITILA, W, MG, PHV, CBC, TROPHS, CMP ####[place] [address] [place], [place] [address] TROPHSon 03-08-2024 High Sensitivity Troponin I 20 ng/L Normal 0-76 [facility] ([place] Comment on above: Result Comment: High Sensitive Troponin I Reference Ranges:Female: 0-51 ng/LMale: 0-76 ng/LTesting performed on [employer] using a homogeneous sandwich chemiluminescent immunoassay based on [employer] technology. Performed By: #### A DIFF, ANEU, MORPH, GFR, DOMITILA, W, MG, PHV, CBC, TROPHS, CMP ####[place] [address] [place], [place] [address] UAon 03-08-2024 Color (U) Yellow Normal [facility] ([place] Comment on above: Performed By: #### U AMICAO, UA ####[place] [address] [place], [place] [address] Glucose (U) [Mass/Vol] mg/dL Abnormal Negative [facility] ([place]) Comment on above: Performed By: #### U AMICAO, UA ####[place] [address] [place], [place] [address] Ketones Ql (U) Negative Normal Negative [facility] ([place] Comment on above: Performed By: #### U AMICAO, UA ####[place] [address] [place], [place] [address] UA Appear Clear Normal Clear [facility] ([place] Comment on above: Performed By: #### U AMICAO, UA ####[place] [address] [place], [place] [address] UA Blood Small Abnormal Negative [facility] ([place] Comment on above: Performed By: #### U AMICAO, UA ####[place] [address] [place], [place] [address] UA Leuk Est Negative Normal Negative [facility] ([place] Comment on above: Performed By: #### U AMICAO, UA ####[place] [address] [place], [place] [address] UA Nitrite Negative Normal Negative [facility] ([place] Comment on above: Performed By: #### U AMICAO, UA ####[place] [address] [place], [place] [address] UA pH 5.5 Normal 5.0 - 8.0 [facility] ([place] Comment on above: Performed By: #### U AMICAO, UA ####[place] [address] [place], [place] [address] UA Protein >=300 Abnormal Negative [facility] ([place] Comment on above: Performed By: #### U AMICAO, UA ####[place] [address] [place], [place] [address] UA Spec Grav 1.025 Normal 1.015-1.02 5 [facility] ([place] Comment on above: Performed By: #### U AMICAO, UA ####[place] [address] [place], [place] [address] UA Specimen Type Clean Catch Normal [facility] ([place] Comment on above: Performed By: #### U AMICAO, UA ####[place] [address] [place], [place] [address] UA Urobilinogen 0.2 E.U./dL Normal 0.2-1.0 [facility] ([place] Comment on above: Performed By: #### U AMICAO, UA ####[place] [address] [place], [place] [address] Urobilinogen (U) [Mass/Vol] Negative Normal Negative [facility] ([place] Comment on above: Performed By: #### U AMICAO, UA ####[place] [address] [place], [place] [address] XR CHEST 1 VIEWon 03-08-2024 XR CHEST 1 VIEW Normal [facility] ([place] XR KNEE THREE VIEWS LEFTon 0 03-08-2024 XR KNEE THREE VIEWS LEFT Normal [facility] ([place] LABORATORYOrdered By: Cherelle Garsia on 07-07-2023 Appearance [...] panelon 05-09-2023 Anion gap [Moles/Vol] 9 mmol/L [facility] [employer] Calcium [Mass/Vol] 9.0 mg/dL 8.6 - 10. 3 mg/dL [facility] [employer] Chloride [Moles/Vol] 105 mmol/L 98 - 11 0 mmol/L [facility] [employer] CO2 [Moles/Vol] 23 mmol/L 20 - 32 mmol/L [facility] [employer] Creatinine [Mass/Vol] 3.32 mg/dL High 0.60 - 1.29 mg/dL [facility] [employer] GFR/1.73 sq M.predicted among non-blacks MDRD (S/P/Bld) [Vol rate/Area] 22 mL/min/{1.73_m2} Low > OR = 60 mL/min/1.7 3m2 [facility] [employer] Comment on above: The eGFR is based on the CKD-EPI 2020 equation. To calculate the new eGFR from a previous Creatinine or Cystatin C result, go to https://www.kidney.org/professionals/ kdoqi/gfr%5Fcalculator Glucose [Mass/Vol] 238 mg/dL High 65 - 99 mg/dL [facility] [employer] Comment on above: Fasting reference interval For someone without known diabetes, a glucose value >125 mg/dL indicates that they may have diabetes and this should be confirmed with a follow-up test. Interpretation and review of laboratory results Abnormal [facility] Potassium [Moles/Vol] 5.0 mmol/L 3.5 - 5.3 mmol/L [facility] Sodium [Moles/Vol] 137 mmol/L 135 - 146 mmol/L [facility] Urea nitrogen [Mass/Vol] 40 mg/dL High 7 - 25 mg/dL [facility] Urea nitrogen/Creatinine [Mass ratio] 12 mg/mg [facility] CR Chest PA/LATon 01-10-2022 CR Chest PA/LAT Patient Name: GURINDER JARVIS Diagnostic Radiology ACCESSION EXAM DATE/TIME PROCEDURE ORDERING PROVIDER [id number] 01/10/2022 15:58 EST CR Chest PA and LAT OLI ADAM HOLLY S CPT code 01060 Reason For Exam (CR Chest PA and [...] Transcribed Date and Time: 01/10/2022 4:06 Normal [facility] LABORATORYOrdered By: Tori Kinsey on 12-13-2021 ADMITTED [...] SS HAS SYMPTOMS RELATED TO CONDITION OF INTEREST:FIND:PT:^NADIA NT:ORD: Yes (12/13/21 11:57 PM) Invalid Interpretation [...] definite cause of disease. Laboratories within the [place] and its territories are required to report [...] AO Auto Urine SS ED Provider Noteon 1 ED Provider Note ADDISON QUIROGA ED eMERGENCY [...] the left hand. Patient was seen at [facility] yesterday and had an x-ray [...] Lack of (more content not included)... Normal [facility] Basic Metabolic Panelon 12-2 Anion gap [Moles/Vol] 9 mmol/L [place], [place] Calcium [Mass/Vol] 9.1 mg/dL 8.4 - 10. 4 mg/dL [place], [place] Chloride [Moles/Vol] 104 mmol/L 98 - 10 7 mmol/L [place] CO2 [Moles/Vol] 23 mmol/L 22 - 30 mmol/L [place] Creatinine [Mass/Vol] 2 mg/dL High 0.52 - 1.25 mg/dL [place] EGFR IF NonAfrican Taiwanese 39.5 mL/min Abnormal >60 [place] Comment on above: KDIGO guidelines pro [...] (S/P/Bld) [Vol rate/Area] 45.8 mL/min/{1.73_m2} Abnormal >60 [place] Glucose [Mass/Vol] 321 mg/dL High 70 - 100 mg/dL [place] Interpretation and review of laboratory results Abnormal [place] Potassium [Moles/Vol] 4.4 mmol/L 3.5 - 5.1 mmol/L [place] Sodium [Moles/Vol] 136 mmol/L 135 - 145 mmol/L [place] Urea nitrogen [Mass/Vol] 25 mg/dL High 7 - 20 mg/dL [place] Test Performed by [facility], [address], [place], [place] [address] [place], [place] CBC Auto Differentialon 10-20 Absolute Baso # 0.1 10*3/uL 0 - 0.2 10*3/uL [place] Absolute Neut # 6.8 10*3/uL 1.8 - 7 10*3/uL [place] Basophils/100 WBC (Bld) 1.0 % 0 - 2 % [place] Eosinophils (Bld) [#/Vol] 0.5 10*3/uL 0 - 0.5 10*3/uL [place] Eosinophils/100 WBC (Bld) 4.6 % 1 - 6 % [place] Erythrocyte distribution width (RBC) [Ratio] 13.8 % 11.5 - 14.5 % [place] Granulocytes/100 WBC (Bld) 65.3 % 40 - 80 % [place] Hematocrit (Bld) [Volume fraction] 36.5 % Low 40 - 52 % [place] Hemoglobin (Bld) [Mass/Vol] 12.0 g/dL Low 13 - 18 g/dL [place] Interpretation and review of laboratory results Abnormal [place] Lymphocytes (Bld) [#/Vol] 2.3 10*3/uL 1 - 4.3 10*3/uL [place] Lymphocytes/100 WBC (Bld) 21.9 % 20 - 40 % [place] MCH (RBC) [Entitic mass] 26.4 pg 26 - 34 pg [place] MCHC (RBC) [Mass/Vol] 32.8 % 32 - 36 % [place] MCV (RBC) [Entitic vol] 80.3 fL 80 - 98 fL [place], [place] Monocytes (Bld) [#/Vol] 0.7 10*3/uL 0 - 0.8 10*3/uL [place] Monocytes/100 WBC (Bld) 7.2 % 2 - 10 % [place] Platelet mean volume (Bld) [Entitic vol] 9.0 fL 7.4 - 10.4 fL [place] Platelets (Bld) [#/Vol] 240 10*3/uL 140 - 440 10*3/uL [place] RBC (Bld) [#/Vol] 4.55 10*6/uL 4.4 - 5.9 10*6/uL [place] WBC (Bld) [#/Vol] 10.4 10*3/uL 3.6 - 10.7 10*3/uL [place] Test Performed by [facility], [address], [place], [place] [address] [place] POCT Glucoseon 05-14-2020 Glucose [Mass/Vol] 278 mg/dL High 70 - 100 mg/dL [place], [place] Comment on above: Test performed by gl ucose meter. Results may be 10%-15% lower than serum/plasma values. (CLIA ID [id number]) Interpretation and review of laboratory results Abnormal [place] Test Performed by [facility], [address] , [place], [place] [address] [place] Vital Signs Date Time Vital Sign Value Performing Clinician Facility 06-16-2025 14:23-0400 Diastolic blood pressure 82 mm[Hg] Shreyamar Parkerenthal [employer] Work Phone: [facility] 06-16-2025 14:23-0400 Heart rate 87 /min Shreyamar Parkerenthal [employer] [place] FOOD MACHINE TENDER Work Phone: [facility] 06-16-2025 14:23-0400 Systolic blood pressure 128 mm[Hg] Shreya Keithenthal G[employer]TER - [employer] Work Phone: [facility] 06-16-2025 13:18-0400 Body mass index (BMI) [Ratio] 36.08 kg/m2 Shreya Keithenthal G[employer]TER - [employer] M[employer] TENDER Work Phone: [facility] 06-16-2025 13:18-0400 Body temperature 98.29 [degF] Shreya Keithenthal G[employer]TER - [employer] M[employer] TENDER Work Phone: [facility] 06-16-2025 13:18-0400 Body weight 127.46 kg Shreya Olivera GUN [employer]TER - [employer] M[employer]INE TENDER Work Phone: [facility] 06-16-2025 13:18-0400 Respiratory rate 20 /min Shreya Olivera G[employer]TER - [employer] M[employer]INE TENDER Work Phone: [facility] 06-16-2025 13:18-0400 SaO2% (BldA) [Mass fraction] 97 % Shreya Olivera G[employer]TER - [employer] M[employer]INE TENDER Work Phone: [facility] 02-15-2025 17:50-0400 Diastolic Blood Pressure Non-Invasive 96 mm[Hg] VIRIDIANA WILLIAM MD [facility] 02-15-2025 17:50-0400 Systolic Blood Pressure Non-Invasive 170 mm[Hg] VIRIDIANA WILLIAM MD [facility] 02-15-2025 16:02-0400 Diastolic Blood Pressure Non-Invasive 104 mm[Hg] VIRIDIANA WILLIAM MD [facility] 02-15-2025 16:02-0400 Systolic Blood Pressure Non-Invasive 178 mm[Hg] VIRIDIANA WILLIAM MD [facility] 02-15-2025 15:15-0400 Diastolic Blood Pressure Non-Invasive 98 mm[Hg] VIRIDIANA WILLIAM MD [facility] 02-15-2025 15:15-0400 Systolic Blood Pressure Non-Invasive 178 mm[Hg] VIRIDIANA WILLIAM MD [facility] 02-15-2025 15:04-0400 Body temperature 97.52 [degF] VIRIDIANA WILLIAM MD [facility] 02-15-2025 15:04-0400 Heart rate 79 /min VIRIDIANA WILLIAM MD [facility] 02-15-2025 15:04-0400 Reason For Taking VItal Signs VIRIDIANA WILLIAM MD [facility] 02-15-2025 15:04-0400 Respiratory rate 18 /min VIRIDIANA WILLIAM MD [facility] 02-15-2025 12:16-0400 Heart rate 82 /min VIRIDIANA WILLIAM MD [facility] 02-15-2025 06:42-0400 Body temperature 97.52 [degF] VIRIDIANA WILLIAM MD [facility] 02-15-2025 06:42-0400 Heart rate 79 /min VIRIDIANA WILLIAM MD [facility] 02-15-2025 06:42-0400 Reason For Taking VItal Signs VIRIDIANA WILLIAM MD [facility] 02-15-2025 06:42-0400 Respiratory rate 18 /min VIRIDIANA WILLIAM MD [facility] 02-15-2025 05:51-0400 Body weight 126.8 kg VIRIDIANA WILLIAM MD [facility] 02-14-2025 23:51-0400 Blood Pressure Cuff Size VIRIDIANA WILLIAM MD [facility] 02-14-2025 23:51-0400 Blood Pressure Location VIRIDIANA WILLIAM MD [facility] 02-14-2025 23:51-0400 Blood Pressure Method VIRIDIANA WILLIAM MD [facility] 02-14-2025 23:51-0400 Body temperature 98.24 [degF] VIRIDIANA WILLIAM MD [facility] 02-14-2025 23:51-0400 Mean blood pressure 109 mm[Hg] VIRIDIANA WILLIAM MD [facility] 02-14-2025 23:51-0400 Reason For Taking VItal Signs VIRIDIANA WILLIAM MD [facility] 02-14-2025 23:51-0400 Respiratory rate 18 /min VIRIDIANA WILLIAM MD [facility] 02-14-2025 20:33-0400 Blood Pressure Cuff Size VIRIDIANA WILLIAM MD [facility] 02-14-2025 20:33-0400 Blood Pressure Location VIRIDIANA WILLIAM MD [facility] 02-14-2025 20:33-0400 Blood Pressure Method VIRIDIANA WILLIAM MD [facility] 02-14-2025 20:30-0400 Blood Pressure Cuff Size VIRIDIANA WILLIAM MD [facility] 02-14-2025 20:30-0400 Blood Pressure Location VIRIDIANA WILLIAM MD [facility] 02-14-2025 20:30-0400 Blood Pressure Method VIRIDIANA WILLIAM MD [facility] 02-14-2025 16:04-0400 Body temperature 96.8 [degF] VIRIDIANA WILLIAM MD [facility] 02-14-2025 16:04-0400 Body weight 123.8 kg VIRIDIANA WILLIAM MD [facility] 02-14-2025 16:04-0400 Heart rate 76 /min VIRIDIANA WILLIAM MD [facility] 02-14-2025 15:30-0400 Heart rate 73 /min VIRIDIANA WILLIAM MD [facility] 02-14-2025 15:02-0400 Heart rate 75 /min VIRIDIANA WILLIAM MD [facility] 02-14-2025 13:56-0400 Body temperature 96.98 [degF] VIRIDIANA WILLIAM MD [facility] 02-14-2025 13:56-0400 Body weight 127.1 kg VIRIDIANA WILLIAM MD [facility] 02-13-2025 15:59-0400 Body temperature 97.7 [degF] VIRIDIANA WILLIAM MD [facility] 02-12-2025 08:30-0400 Heart rate 74 /min VIRIDIANA WILLIAM MD [facility] 02-11-2025 22:41-0400 Mean blood pressure 113 mm[Hg] VIRIDIANA WILLIAM MD [facility] 02-11-2025 22:30-0400 Mean blood pressure 112 mm[Hg] VIRIDIANA WILLIAM MD [facility] 02-11-2025 20:00-0400 Heart rate 94 /min VIRIDIANA WILLIAM MD [facility] 02-11-2025 07:57-0400 Heart rate 81 /min VIRIDIANA WILLIAM MD [facility] 02-10-2025 01:33-0400 Body height 188 cm VIRIDIANA WILLIAM MD [facility] 02-10-2025 01:33-0400 Body weight 40.69 kg/m2 VIRIDIANA WILLIAM MD [facility] 01-22-2025 16:07-0500 Diastolic blood pressure 128 mm[Hg] Jose Morrison MD Work Phone: [email or web address] Comment on above: Dr Morrison advised 01-22-2025 16:07-0500 Heart rate 94 /min Jose Morrison MD Work Phone: [email or web address] 01-22-2025 16:07-0500 Systolic blood pressure 215 mm[Hg] Jose Morrison MD Work Phone: [email or web address] Comment on above: Dr Morrison advised 01-22-2025 16:01-0500 Body height 188 cm Jose Morrison MD Work Phone: [email or web address] 01-22-2025 16:01-0500 Body mass index (BMI) [Ratio] 38.52 kg/m2 Jose Morrison MD Work Phone: [email or web address] 01-22-2025 16:01-0500 Body weight 136.08 kg Jose Morrison MD Work Phone: [email or web address] 12-09-2024 10:08-0500 Body height 188 cm Garrick Velasquez MD Work Phone: [email or web address] 12-09-2024 10:08-0500 Body mass index (BMI) [Ratio] 38.52 kg/m2 Garrick Velasquez MD Work Phone: [email or web address] 12-09-2024 10:08-0500 Body weight 136.08 kg Garrick Velasquez MD Work Phone: [email or web address] 12-09-2024 10:08-0500 Diastolic blood pressure 73 mm[Hg] Garrick Velasquez MD Work Phone: [email or web address] 12-09-2024 10:08-0500 Heart rate 85 /min Garrick Velasquez MD Work Phone: [email or web address] 12-09-2024 10:08-0500 Systolic blood pressure 139 mm[Hg] Garrick Velasquez MD Work Phone: [email or web address] 09-22-2024 14:23-0500 Diastolic blood pressure 86 mm[Hg] Phoebe Adam G[employer]TER - [employer]INE TENDER Work Phone: [email or web address] 09-22-2024 14:23-0500 Systolic blood pressure 138 mm[Hg] Phoebe Adam G[employer]TER - [employer] MACHINE TENDER Work Phone: [email or web address] 09-22-2024 13:44-0500 Body height 188 cm Phoebe Adam G[employer]TER - [employer] MACHINE TENDER Work Phone: [email or web address] 09-22-2024 13:44-0500 Body mass index (BMI) [Ratio] 34.79 kg/m2 Phoebe Adam G[employer]TER - [employer] MACHINE TENDER Work Phone: [email or web address] 09-22-2024 13:44-0500 Body weight 122.92 kg Phoebe Adam G[employer]TER - [employer] MACHINE TENDER Work Phone: [facility] 09-22-2024 13:44-0500 Heart rate 83 /min Phoebe Adam GUN FITTER - [employer] MACHINE TENDER Work Phone: [facility] 09-22-2024 13:44-0500 SaO2% (BldA) [Mass fraction] 99 % Phoebe Adam G[employer]TER - [employer] MACHINE TENDER Work Phone: [facility] 06-30-2024 16:34-0400 Heart rate 86 /min DR ILEANA RICO MD [facility] 06-30-2024 15:01-0400 Blood Pressure Cuff Size DR ILEANA RICO MD [facility] 06-30-2024 15:01-[address] ILEANA RICO MD [facility] 06-30-2024 15:01-[address] ILEANA RICO MD [facility] 06-30-2024 15:01-0400 Body temperature 97.7 [degF] DR ILEANA RICO MD [facility] 06-30-2024 15:01-0400 Diastolic Blood Pressure Non-Invasive 75 mm[Hg] DR ILEANA RICO MD [facility] 06-30-2024 15:01-0400 Heart rate 77 /min DR ILEANA RICO MD [facility] 06-30-2024 15:01-0400 Respiratory rate 18 /min DR ILEANA RICO MD [facility] 06-30-2024 15:01-0400 Systolic Blood Pressure Non-Invasive 147 mm[Hg] DR ILEANA RICO MD [facility] 06-30-2024 08:05-0400 Heart rate 78 /min DR ILEANA RICO MD [facility] 06-30-2024 07:47-0400 Body temperature 98.06 [degF] DR ILEANA RICO MD [facility] 06-30-2024 07:47-0400 Diastolic Blood Pressure Non-Invasive 73 mm[Hg] DR ILEANA RICO MD [address] [place] [address] 06-30-2024 07:47-0400 Heart rate 74 /min DR ILEANA RICO MD [address] [place] [address] 06-30-2024 07:47-0400 Respiratory rate 18 /min DR ILEANA RICO MD [address] [place] [address] 06-30-2024 07:47-0400 Systolic Blood Pressure Non-Invasive 143 mm[Hg] DR ILEANA RICO MD [address] [place] [address] 06-29-2024 21:22-0400 Blood Pressure Cuff Size DR ILEANA RICO MD [address] [place] [address] 06-29-2024 21:22-[address] ILEANA RICO MD [address] [place] [address] 06-29-2024 21:22-[address] ILEANA RICO MD [address] [place] [address] 06-29-2024 21:22-0400 Body temperature 97.7 [degF] DR ILEANA RICO MD [address] [place] [address] 06-29-2024 21:22-0400 Diastolic Blood Pressure Non-Invasive 87 mm[Hg] DR ILEANA RICO MD [address] [place] [address] 06-29-2024 21:22-0400 Heart rate 80 /min DR ILEANA RICO MD [facility] 06-29-2024 21:22-0400 Reason For Taking VItal Signs DR ILEANA RICO MD [address] [place] [address] 06-29-2024 21:22-0400 Respiratory rate 16 /min DR ILEANA RICO MD [address] [place] [address] 06-29-2024 21:22-0400 Systolic Blood Pressure Non-Invasive 157 mm[Hg] DR ILEANA RICO MD [address] [place] [address] 06-29-2024 16:41-0400 Heart rate 84 /min DR ILEANA RICO MD [address] 06-29-2024 14:31-0400 Blood Pressure Cuff Size DR ILEANA RICO MD [address] [place] [address] 06-29-2024 14:31-[address] ILEANA RICO MD [address] [place] [address] 06-29-2024 14:31-[address] ILEANA RICO MD [address] 06-28-2024 21:20-0400 Reason For Taking VItal Signs DR ILEANA RICO MD [address] [place] [address] 06-27-2024 21:36-0400 Heart rate 76 /min DR ILEANA RICO MD [address] [place] [address] 06-27-2024 16:10-0400 Heart rate 71 /min DR ILEANA RICO MD [address] [place] [address] 06-27-2024 07:05-0400 Body temperature 97.7 [degF] DR ILEANA RICO MD [address] [place] [address] 06-26-2024 21:03-0400 Reason For Taking VItal Signs DR ILEANA RICO MD [address] [place] [address] 06-23-2024 09:00-0400 Heart rate 78 /min DR ILEANA RICO MD [address] [place] [address] 06-19-2024 19:34-0400 Mean blood pressure 97 mm[Hg] DR ILEANA RICO MD [facility] 06-19-2024 15:20-0400 Mean blood pressure 87 mm[Hg] DR ILEANA RICO MD [facility] 06-19-2024 11:29-0400 Mean blood pressure 104 mm[Hg] DR ILEANA RICO MD [facility] 06-18-2024 18:59-0400 Body height [address] ILEANA RICO MD [address] [place] [address] 06-18-2024 18:59-0400 Body weight 109.[address] ILEANA RICO MD [facility] 06-18-2024 18:59-0400 Body weight 30.98 kg/m2 DR ILEANA RICO MD [facility] 06-06-2024 08:25-0400 Diastolic Blood Pressure Non-Invasive 62 mm[Hg] JIMENA FROMMELT DO [facility] 06-06-2024 08:25-0400 Heart rate 76 /min JIMENA FROMMELT DO [facility] 06-06-2024 08:25-0400 Respiratory rate 16 /min JIMENA FROMMELT DO [facility] 06-06-2024 08:25-0400 Systolic Blood Pressure Non-Invasive 100 mm[Hg] JIMENA FROMMELT DO [facility] 06-06-2024 06:41-0400 Diastolic Blood Pressure Non-Invasive 70 mm[Hg] JIMENA FROMMELT DO [facility] 06-06-2024 06:41-0400 Systolic Blood Pressure Non-Invasive 100 mm[Hg] JIMENA FROMMELT DO [facility] 06-06-2024 05:14-0400 Diastolic Blood Pressure Non-Invasive 61 mm[Hg] JIMENA MCRecruitLoopT DO [facility] 06-06-2024 05:14-0400 Systolic Blood Pressure Non-Invasive 97 mm[Hg] JIMENA MCHövding [facility] 06-06-2024 02:23-0400 Heart rate 80 /min JIMENA [employer] [facility] 06-06-2024 02:23-0400 Reason For Taking VItal Signs JIMENA [employer] [facility] 06-06-2024 02:23-0400 Respiratory rate 18 /min JIMENA MCHövding [facility] 06-06-2024 01:45-0400 Heart rate 82 /min JIMENA MCHövding [facility] 06-06-2024 01:45-0400 Respiratory rate 18 /min JIMENA [employer] [facility] 05-15-2024 19:12-0400 Blood Pressure Cuff Size DR TORI JOHNSON MD [facility] 05-15-2024 19:12-[address] TORI JOHNSON MD [facility] 05-15-2024 19:12-[address] TORI JOHNSON MD [facility] 05-15-2024 19:12-0400 Body temperature 97.34 [degF] DR TORI JOHNSON MD [facility] 05-15-2024 19:12-0400 Diastolic Blood Pressure Non-Invasive 77 mm[Hg] DR TORI JOHNSON MD [address] [place] [address] 05-15-2024 19:12-0400 Heart rate 75 /min DR TORI JOHNSON MD [address] [place] [address] 05-15-2024 19:12-0400 Mean blood pressure 87 mm[Hg] DR TORI JOHNSON MD [address] [place] [address] 05-15-2024 19:12-0400 Reason For Taking VItal Signs DR TORI JOHNSON MD [address] [place] [address] 05-15-2024 19:12-0400 Respiratory rate 16 /min DR TORI JOHNSON MD [address] [place] [address] 05-15-2024 19:12-0400 Systolic Blood Pressure Non-Invasive 118 mm[Hg] DR TORI JOHNSON MD [address] [place] [address] 05-15-2024 17:32-0400 Heart rate 75 /min DR TORI JOHNSON MD [address] [place] [address] 05-15-2024 15:19-0400 Blood Pressure Cuff Size DR TORI JOHNSON MD [address] [place] [address] 05-15-2024 15:19-[address] TORI JOHNSON MD [address] [place] [address] 05-15-2024 15:19-[address] TORI JOHNSON MD [address] [place] [address] 05-15-2024 15:19-0400 Body temperature 97.34 [degF] DR TORI JOHNSON MD [address] [place] [address] 05-15-2024 15:19-0400 Diastolic Blood Pressure Non-Invasive 62 mm[Hg] DR TORI JOHNSON MD [address] [place] [address] 05-15-2024 15:19-0400 Heart rate 76 /min DR TORI JOHNSON MD [address] [place] [address] 05-15-2024 15:19-0400 Reason For Taking VItal Signs DR TORI JOHNSON MD [address] [place] [address] 05-15-2024 15:19-0400 Respiratory rate 16 /min DR TORI JOHNSON MD [address] [place] [address] 05-15-2024 15:19-0400 Systolic Blood Pressure Non-Invasive 108 mm[Hg] DR TORI JOHNSON MD [address] [place] [address] 05-15-2024 12:10-0400 Heart rate 71 /min DR TORI JOHNSON MD [address] [place] [address] 05-15-2024 11:05-0400 Blood Pressure Cuff Size DR TORI JOHNSON MD [address] [place] [address] 05-15-2024 11:05-[address] TORI JOHNSON MD [address] [place] [address] 05-15-2024 11:05-[address] TORI JOHNSON MD [address] [place] [address] 05-15-2024 11:05-0400 Body temperature 97.34 [degF] DR TORI JOHNSON MD [address] [place] [address] 05-15-2024 11:05-0400 Diastolic Blood Pressure Non-Invasive 80 mm[Hg] DR TORI JOHNSON MD [address] [place] [address] 05-15-2024 11:05-0400 Reason For Taking VItal Signs DR TORI JOHNSON MD [address] [place] [address] 05-15-2024 11:05-0400 Respiratory rate 18 /min DR TORI JOHNSON MD [address] [place] [address] 05-15-2024 11:05-0400 Systolic Blood Pressure Non-Invasive 130 mm[Hg] DR TORI JOHNSON MD [address] [place] [address] 05-15-2024 08:00-0400 Heart rate 78 /min DR TORI JOHNSON MD [address] [place] [address] 05-14-2024 16:18-0400 Heart rate 81 /min DR TORI JOHNSON MD [address] [place] [address] 05-14-2024 10:55-0400 Mean blood pressure 100 mm[Hg] DR TORI JOHNSON MD [address] [place] [address] 05-14-2024 07:42-0400 Mean blood pressure 81 mm[Hg] DR TORI JOHNSON MD [address] [place] [address] 05-08-2024 15:22-0400 Body temperature 97.88 [degF] DR TORI JOHNSON MD [address] [place] [address] 05-08-2024 12:01-0400 Body temperature 96.8 [degF] DR TORI JOHNSON MD [address] [place] [address] 05-08-2024 10:34-0400 Body temperature 96.08 [degF] DR TORI JOHNSON MD [address] [place] [address] 05-08-2024 05:24-0400 Body height [address] TORI JOHNSON MD [address] [place] [address] 05-08-2024 05:24-0400 Body weight 114.[address] TORI JOHNSON MD [address] [place] [address] 05-08-2024 05:24-0400 Body weight 32.71 kg/m2 DR TORI JOHNSON MD [address] [place] [address] 05-08-2024 04:10-0400 Diastolic Blood Pressure Non-Invasive 82 mm[Hg] JIMENA KENDRAT [facility] 05-08-2024 04:10-0400 Heart rate 78 /min JIMENA FROMMELT DO [facility] 05-08-2024 04:10-0400 Respiratory rate 16 /min JIMENA KENDRAT DO [facility] 05-08-2024 04:10-0400 Systolic Blood Pressure Non-Invasive 170 mm[Hg] JIMENA FROMMELT DO [facility] 05-07-2024 23:23-0400 Diastolic Blood Pressure Non-Invasive 80 mm[Hg] JIMENA FROMMELT DO [facility] 05-07-2024 23:23-0400 Heart rate 84 /min JIMENA FROMMELT DO [facility] 05-07-2024 23:23-0400 Respiratory rate 14 /min JIMENA FROMMELT DO [facility] 05-07-2024 23:23-0400 Systolic Blood Pressure Non-Invasive 152 mm[Hg] JIMENA FROMMELT DO [facility] 05-07-2024 17:53-0400 Body weight 119.7 kg JIMENA FROMMELT DO [facility] 05-07-2024 17:30-0400 Diastolic Blood Pressure Non-Invasive 97 mm[Hg] JIMENA FROMMELT DO [facility] 05-07-2024 17:30-0400 Heart rate 82 /min JIMENA FROMMELT DO [facility] 05-07-2024 17:30-0400 Respiratory rate 16 /min JIMENA FROMMELT DO [facility] 05-07-2024 17:30-0400 Systolic Blood Pressure Non-Invasive 175 mm[Hg] JIMENA FROMMELT DO [facility] 05-07-2024 15:30-0400 Heart rate 82 /min JIMENA FROMMELT DO [facility] 05-07-2024 13:55-0400 Heart rate 88 /min JIMENA FROMMELT DO [facility] 05-07-2024 11:12-0400 Reason For Taking VItal Signs JIMENA HOGAN [employer] [facility] 05-07-2024 10:43-0400 Blood Pressure Cuff Size JIMENA HOGAN DO [facility] 05-07-2024 10:43-0400 Blood Pressure Location JIMENA HOGAN [employer] [facility] 05-07-2024 10:43-0400 Blood Pressure Method JIMENA HOGAN DO [facility] 05-07-2024 10:43-0400 Body temperature 95.18 [degF] JIMENA [employer] [facility] 05-07-2024 10:43-0400 Body weight 122 kg JIMENA GARDNER[employer]blems[employer]24 [facility] 05-07-2024 10:43-0400 Heart rate 93 /min [facility] 05-06-2024 19:01-0400 Body temperature 98.6 [degF] JOAN MCKEON MD [facility] 05-06-2024 19:01-0400 Diastolic Blood Pressure Non-Invasive 65 mm[Hg] JOAN MCKEON MD [facility] 05-06-2024 19:01-0400 Heart rate 87 /min JOAN MCKEON MD [facility] 05-06-2024 19:01-0400 Respiratory rate 16 /min JOAN MCKEON MD [facility] 05-06-2024 19:01-0400 Systolic Blood Pressure Non-Invasive 114 mm[Hg] JOAN MCKEON MD [facility] 05-06-2024 16:27-0400 Heart rate 80 /min JOAN MCKEON MD [facility] 05-06-2024 16:25-0400 Heart rate 80 /min JOAN MCKEON MD [facility] 05-06-2024 14:57-0400 Blood Pressure Cuff Size JOAN MCKEON MD [facility] 05-06-2024 14:57-0400 Blood Pressure Location JOAN MCKEON MD [facility] 05-06-2024 14:57-0400 Blood Pressure Method JOAN MCKEON MD [facility] 05-06-2024 14:57-0400 Body temperature 98.96 [degF] JOAN MCKEON MD [facility] 05-06-2024 14:57-0400 Diastolic Blood Pressure Non-Invasive 70 mm[Hg] JOAN MCKEON MD [facility] 05-06-2024 14:57-0400 Heart rate 81 /min JOAN MCKEON MD [facility] 05-06-2024 14:57-0400 Reason For Taking VItal Signs JOAN MCKEON MD [facility] 05-06-2024 14:57-0400 Respiratory rate 16 /min JOAN MCKEON MD [facility] 05-06-2024 14:57-0400 Systolic Blood Pressure Non-Invasive 118 mm[Hg] JOAN MCKEON MD [facility] 05-06-2024 10:35-0400 Blood Pressure Cuff Size JOAN MCKEON MD [facility] 05-06-2024 10:35-0400 Blood Pressure Location JOAN MCKEON MD [facility] 05-06-2024 10:35-0400 Blood Pressure Method JOAN MCKEON MD [facility] 05-06-2024 10:35-0400 Body temperature 98.42 [degF] JAON MCKEON MD [facility] 05-06-2024 10:35-0400 Diastolic Blood Pressure Non-Invasive 72 mm[Hg] JOAN MCKEON MD [facility] 05-06-2024 10:35-0400 Heart rate 80 /min JOAN MCKEON MD [facility] 05-06-2024 10:35-0400 Reason For Taking VItal Signs JOAN MCKEON MD [facility] 05-06-2024 10:35-0400 Respiratory rate 16 /min JOAN MCKEON MD [facility] 05-06-2024 10:35-0400 Systolic Blood Pressure Non-Invasive 120 mm[Hg] JOAN MCKEON MD [facility] 05-06-2024 08:05-0400 Heart rate 86 /min JOAN MCKEON MD [facility] 05-06-2024 08:05-0400 Reason For Taking VItal Signs JOAN MCKEON MD [facility] 05-06-2024 06:57-0400 Blood Pressure Cuff Size JOAN MCKEON MD [facility] 05-06-2024 06:57-0400 Blood Pressure Location JOAN MCKEON MD [facility] 05-06-2024 06:57-0400 Blood Pressure Method JOAN MCKEON MD [facility] 05-06-2024 06:57-0400 Heart rate 86 /min JOAN MCKEON MD [facility] 05-05-2024 16:08-0400 Heart rate 81 /min JOAN MCKEON MD [facility] 05-05-2024 16:08-0400 Mean blood pressure 69 mm[Hg] JOAN MCKEON MD [facility] 05-05-2024 15:53-0400 Heart rate 80 /min JOAN MCKEON MD [facility] 05-05-2024 15:53-0400 Mean blood pressure 86 mm[Hg] JOAN MCKEON MD [facility] 05-05-2024 15:38-0400 Mean blood pressure 81 mm[Hg] JOAN MCKEON MD [facility] 05-05-2024 15:08-0400 Body temperature 97.16 [degF] JOAN MCKEON MD [facility] 05-05-2024 14:55-0400 Respiratory Rate - Anes 14 br/min JOAN MCKEON MD [facility] 05-05-2024 14:50-0400 Body temperature 99.18 [degF] JOAN MCKEON MD [facility] 05-05-2024 14:50-0400 Respiratory Rate - Anes 16 br/min JOAN MCKEON MD [facility] 05-05-2024 14:45-0400 Body temperature 99.14 [degF] JOAN MCKEON MD [facility] 05-05-2024 14:40-0400 Body temperature 99.16 [degF] JOAN MCKEON MD [facility] 04-26-2024 12:18-0400 Diastolic blood pressure 76 mm[Hg] JOAN MCKEON MD [facility] 04-26-2024 12:18-0400 Mean blood pressure 91 mm[Hg] JOAN CMKEON MD [facility] 04-26-2024 12:18-0400 Systolic blood pressure 125 mm[Hg] JOAN MCKEON MD [facility] 04-25-2024 12:25-0400 SaO2% (BldA) [Mass fraction] 94.0 % JOAN MCKEON MD [facility] 04-25-2024 12:04-0400 Body temperature 97.34 [degF] JOAN MCKEON MD [facility] 04-25-2024 07:56-0400 Body temperature 96.8 [degF] JOAN MCKEON MD [facility] 04-22-2024 12:23-0400 Body height 188 cm JOAN MCKEON MD [facility] 04-22-2024 12:23-0400 Body weight 125 kg JOAN MCKEON MD [facility] 04-22-2024 12:23-0400 Body weight 35.37 kg/m2 JOAN MCKEON MD [facility] 04-21-2024 23:27-0400 Signs/Symptoms Transfusion Reaction JOAN MCKEON MD [facility] 04-21-2024 23:15-0400 Signs/Symptoms Transfusion Reaction JOAN MCKEON MD [facility] 04-21-2024 22:27-0400 Signs/Symptoms Transfusion Reaction No JOAN MKCEON MD [facility] 04-21-2024 22:27-0400 Diastolic blood pressure 89 mm[Hg] JOAN MCKEON MD [facility] 04-21-2024 22:27-0400 Systolic blood pressure 127 mm[Hg] JOAN MCKEON MD [facility] 04-21-2024 22:21-0400 Diastolic blood pressure 89 mm[Hg] JOAN MCKEON MD [facility] 04-21-2024 22:21-0400 Systolic blood pressure 127 mm[Hg] JOAN MCKEON MD [facility] 04-21-2024 21:51-0400 Diastolic blood pressure 66 mm[Hg] JOAN MCKEON MD [facility] 04-21-2024 21:51-0400 Systolic blood pressure 124 mm[Hg] JOAN MCKEON MD [facility] 04-20-2024 04:13-0400 SaO2% (BldA) [Mass fraction] 92.2 % JOAN MCKEON MD [facility] 04-20-2024 03:13-0400 Body temperature 96.8 [degF] JOAN MCKEON MD [facility] 04-19-2024 11:33-0400 Diastolic blood pressure 86 mm[Hg] JOAN MCKEON MD [facility] 04-19-2024 11:33-0400 Mean blood pressure 102 mm[Hg] JOAN MCKEON MD [facility] 04-19-2024 11:33-0400 Systolic blood pressure 146 mm[Hg] JOAN MCKEON MD [facility] 04-19-2024 10:04-0400 Diastolic blood pressure 67 mm[Hg] JOAN MCKEON MD [facility] 04-19-2024 10:04-0400 Mean blood pressure 96 mm[Hg] JOAN MCKEON MD [facility] 04-19-2024 10:04-0400 Systolic blood pressure 150 mm[Hg] JOAN MCKEON MD [facility] 2024 02:11-0400 SaO2% (BldA) [Mass fraction] 97.5 % JOAN MCKEON MD [facility] 2024 00:16-0400 SaO2% (BldA) [Mass fraction] 98.8 % JOAN MCKEON MD [facility] 04-16-2024 01:20-0400 Body temperature 95.36 [degF] JOAN MCKEON MD [facility] 04-16-2024 00:43-0400 Diastolic blood pressure 62 mm[Hg] MARTÍNEZ ACUNA MD [facility] 04-16-2024 00:43-0400 Heart rate 105 /min MARTÍNEZ ACUNA MD [facility] 04-16-2024 00:43-0400 Respiratory rate 18 /min MARTÍNEZ ACUNA MD [facility] 04-16-2024 00:43-0400 Systolic blood pressure 94 mm[Hg] MARTÍNEZ ACUNA MD [facility] 04-16-2024 00:13-0400 Blood Pressure Cuff Size MARTÍNEZ ACUNA MD [facility] 04-16-2024 00:13-0400 Blood Pressure Location MARTÍNEZ ACUNA MD [facility] 04-16-2024 00:13-0400 Blood Pressure Method MARTÍNEZ ACUNA MD [facility] 04-16-2024 00:13-0400 Diastolic Blood Pressure Non-Invasive 67 mm[Hg] MARTÍNEZ ACUNA MD [facility] 04-16-2024 00:13-0400 Heart rate 109 /min MARTÍNEZ ACUNA MD [facility] 04-16-2024 00:13-0400 Respiratory rate 18 /min MARTÍNEZ ACUNA MD [facility] 04-16-2024 00:13-0400 Systolic Blood Pressure Non-Invasive 105 mm[Hg] MARTÍNEZ ACUNA MD [facility] 04-16-2024 00:09-0400 Blood Pressure Cuff Size MARTÍNEZ ACUNA MD [facility] 04-16-2024 00:09-0400 Blood Pressure Location MARTÍNEZ ACUNA MD [facility] 04-16-2024 00:09-0400 Blood Pressure Method MARTÍNEZ ACUNA MD [facility] 04-16-2024 00:09-0400 Diastolic Blood Pressure Non-Invasive 74 mm[Hg] MARTÍNEZ ACUNA MD [facility] 04-16-2024 00:09-0400 Heart rate 106 /min MARTÍNEZ ACUNA MD [facility] 04-16-2024 00:09-0400 Respiratory rate 18 /min MARTÍNEZ ACUNA MD [facility] 04-16-2024 00:09-0400 Systolic Blood Pressure Non-Invasive 111 mm[Hg] MARTÍNEZ ACUNA MD [facility] 04-15-2024 23:59-0400 Blood Pressure Cuff Size MARTÍNEZ ACUNA MD [facility] 04-15-2024 23:59-0400 Blood Pressure Location MARTÍNEZ ACUNA MD [facility] 04-15-2024 23:59-0400 Blood Pressure Method MARTÍNEZ ACUNA MD [facility] 04-15-2024 23:59-0400 Diastolic Blood Pressure Non-Invasive 71 mm[Hg] MARTÍNEZ ACUNA MD [facility] 04-15-2024 23:59-0400 Systolic Blood Pressure Non-Invasive 119 mm[Hg] MARTÍNEZ ACUNA MD [facility] 04-15-2024 22:40-0400 SaO2% (BldA) [Mass fraction] 96.1 % MARTÍNEZ ACUNA MD [facility] 04-15-2024 20:35-0400 Body temperature 96.98 [degF] MARTÍNEZ ACUNA MD [facility] 04-15-2024 19:35-0400 Body height 188 cm MARTÍNEZ ACUNA MD [facility] 04-15-2024 19:35-0400 Body temperature 96.98 [degF] MARTÍNEZ ACUNA MD [facility] 04-15-2024 19:35-0400 Body weight 127.3 kg MARTÍNEZ ACUNA MD [facility] 04-15-2024 19:35-0400 Reason For Taking VItal Signs MARTÍNEZ ACUNA MD [facility] 04-06-2024 16:42-0400 Diastolic Blood Pressure Non-Invasive 77 mm[Hg] [facility] DO [facility] 04-06-2024 16:42-0400 Heart rate 105 /min [facility] DO [facility] 04-06-2024 16:42-0400 Respiratory rate 16 /min [facility] DO [facility] 04-06-2024 16:42-0400 Systolic Blood Pressure Non-Invasive 137 mm[Hg] MATHEW REICHFIELD DO [facility] 04-06-2024 13:19-0400 Body temperature 98.96 [degF] MATHEW REICHFIELD DO [facility] 04-06-2024 13:19-0400 Diastolic Blood Pressure Non-Invasive 91 mm[Hg] MATHEW REICHFIELD DO [facility] 04-06-2024 13:19-0400 Heart rate 117 /min MATHEW REICHFIELD DO [facility] 04-06-2024 13:19-0400 Mean blood pressure 99 mm[Hg] MATHEW REICHFIELD DO [facility] 04-06-2024 13:19-0400 Reason For Taking VItal Signs MATHEW REICHFIELD DO [facility] 04-06-2024 13:19-0400 Respiratory rate 16 /min MATHEW REICHFIELD DO [facility] 04-06-2024 13:19-0400 Systolic Blood Pressure Non-Invasive 108 mm[Hg] MATHEW REICHFIELD DO [facility] 04-06-2024 12:20-0400 Body temperature 98.24 [degF] MATHEW REICHFIELD DO [facility] 04-06-2024 12:20-0400 Body weight 127.5 kg MATHEW REICHFIELD DO [facility] 04-06-2024 12:20-0400 Diastolic Blood Pressure Non-Invasive 73 mm[Hg] MATHEW REICHFIELD DO [facility] 04-06-2024 12:20-0400 Heart rate 120 /min MATHEW REICHFIELD DO [facility] 04-06-2024 12:20-0400 Respiratory rate 20 /[facility] 04-06-2024 12:20-0400 Systolic Blood Pressure Non-Invasive 107 mm[Hg] [facility] DO [facility] 03-11-2024 11:02-0400 Body temperature 98.06 [degF] BRAVO KAPPER [employer] [facility] 03-11-2024 11:02-0400 Diastolic Blood Pressure Non-Invasive 77 mm[Hg] BRAVO KAPPER [employer] [facility] 03-11-2024 11:02-0400 Heart rate 111 /min BRAVO K[employer]PER [employer] [facility] 03-11-2024 11:02-0400 Respiratory rate 16 /min BRAVO KAPPER [employer] [facility] 03-11-2024 11:02-0400 Systolic Blood Pressure Non-Invasive 128 mm[Hg] BRAVO KAPPER [employer] [facility] 03-11-2024 06:38-0400 Body temperature 97.88 [degF] BRAVO K[employer]PER [employer] [facility] 03-11-2024 06:38-0400 Diastolic Blood Pressure Non-Invasive 73 mm[Hg] B[employer]VO [employer] [facility] 03-11-2024 06:38-0400 Heart rate 93 /min BRAVO [employer] [facility] 04-23-2024 06:38-0400 Respiratory rate 16 /min B[employer] [facility] 03-11-2024 06:38-0400 Systolic Blood Pressure Non-Invasive 120 mm[Hg] BRAVO K[employer]PER [employer] [facility] 03-11-2024 03:50-0400 Body temperature 98.06 [degF] BRAVO KAPPER [employer] [facility] 03-11-2024 03:50-0400 Diastolic Blood Pressure Non-Invasive 94 mm[Hg] B[employer] [address] [place] [address] 03-11-2024 03:50-0400 Heart rate 98 /min B[employer]VO [employer] [address] [place] [address] 03-11-2024 03:50-0400 Respiratory rate 16 /min BRAVO K[employer]PER [employer] [facility] 03-11-2024 03:50-0400 Systolic Blood Pressure Non-Invasive 152 mm[Hg] BRAVO KAPPER [employer] [facility] 03-11-2024 00:23-0400 Heart rate 106 /min BRAVO K[employer] [facility] 03-10-2024 19:13-0400 Heart rate 109 /min B[employer]VO [employer] [facility] 03-10-2024 16:49-0400 Blood Pressure Location BRAVO [employer] [facility] 03-10-2024 16:49-0400 Blood Pressure Method BRAVO K[employer]PER [employer] [facility] 03-10-2024 15:33-0400 Heart rate 104 /min BRAVO K[employer]PER [employer] [facility] 03-10-2024 02:56-0400 Heart rate 108 /min BRAVO K[employer]PER [employer] [facility] 03-09-2024 22:52-0400 Heart rate 117 /min BRAVO [employer]PER [employer] [facility] 03-09-2024 19:08-0400 Heart rate 110 /min BRAVO [employer] [facility] 03-08-2024 16:58-0400 Body height 188 cm BRAVO KAPPER [employer] [facility] 03-08-2024 16:58-0400 Body weight 128.4 kg BRAVO KAPPER [employer] [facility] 03-08-2024 16:58-0400 Body weight 36.33 kg/m2 BRAVO K[employer]PER [employer] [facility] 03-08-2024 12:47-0400 Blood Pressure Method BRAVO [employer] [facility] 07-07-2023 18:17-0400 Body temperature 97.52 [degF] CLEM BOOKER MD [facility] 07-07-2023 18:17-0400 Diastolic Blood Pressure Non-Invasive 99 1 CLEM BOOKER MD [facility] 07-07-2023 18:17-0400 Heart rate 110 /min CLEM BOOKER MD [facility] 07-07-2023 18:17-0400 Respiratory rate 15 /min CLEM BOOKER MD [facility] 07-07-2023 18:17-0400 Systolic Blood Pressure Non-Invasive 170 1 CLEM BOOKER MD [facility] 01-08-2023 09:52-0500 Body height 188 cm Phoebe Adam [employer] Work Phone: [facility] [email or web address] 01-08-2023 09:52-0500 Body mass index (BMI) [Ratio] 38.39 kg/m2 Phoebe Adam [employer] Work Phone: [facility] [email or web address] 01-08-2023 09:52-0500 Body weight 135.63 kg Phoebe Adam [employer] Work Phone: [email or web address] 01-08-2023 09:52-0500 Diastolic blood pressure 76 mm[Hg] Phoebe Adam [employer] Work Phone: [facility] [email or web address] 01-08-2023 09:52-0500 Heart rate 80 /min Phoebe Adam [employer] Work Phone: [email or web address] 01-08-2023 09:52-0500 SaO2% (BldA) [Mass fraction] 95 % Phoebe Adam [employer] Work Phone: [email or web address] 01-08-2023 09:52-0500 Systolic blood pressure 120 mm[Hg] Phoebe Adam [employer] Work Phone: [email or web address] 12-22-2022 14:06-0500 Body height 188 cm Tu Goetz MD Work Phone: [email or web address] 12-22-2022 14:06-0500 Body mass index (BMI) [Ratio] 35.95 kg/m2 Tu Goetz MD Work Phone: [email or web address] 12-22-2022 14:06-0500 Body temperature 97.81 [degF] Tu Goetz MD Work Phone: [facility] 12-22-2022 14:06-0500 Body weight 127.01 kg Tu Goetz MD Work Phone: [facility] [email or web address] 12-14-2021 00:18-0500 Diastolic blood pressure 84 mm[Hg] DR RAMON MIN MD [facility] 12-14-2021 00:18-0500 Systolic blood pressure 141 mm[Hg] DR RAMON MIN MD [facility] 12-13-2021 23:57-0500 Body temperature 99.14 [degF] DR RAMON MIN MD [facility] 12-13-2021 23:57-0500 Diastolic blood pressure 90 mm[Hg] DR RAMON MIN MD [facility] 12-13-2021 23:57-0500 Heart rate 122 /min DR RAMON MIN MD [facility] 12-13-2021 23:57-0500 Respiratory rate 25 /min DR RAMON MIN MD [facility] 12-13-2021 23:57-0500 Systolic blood pressure 153 mm[Hg] DR RAMON MIN MD [facility] 12-13-2021 23:17-0500 Body temperature 98.24 [degF] DR RAMON MIN MD [facility] 12-13-2021 23:17-0500 Diastolic blood pressure 80 mm[Hg] DR RAMON MIN MD [facility] 12-13-2021 23:17-0500 Heart rate 130 /min DR RAMON MIN MD [facility] 12-13-2021 23:17-0500 Respiratory rate 20 /min DR RAMON MIN MD [facility] 12-13-2021 23:17-0500 Systolic blood pressure 143 mm[Hg] DR RAMON MIN MD [facility] 09-04-2021 21:02-0400 Body temperature 97.2 [degF] Artie Jackson MD Work Phone: [employer] Work Phone: 09-04-2021 21:02-0400 Diastolic blood pressure 109 mm[Hg] Artie Jackson MD Work Phone: [employer] Work Phone: 09-04-2021 21:02-0400 Heart rate 111 /min Artie Jackson MD Work Phone: [employer] Work Phone: 09-04-2021 21:02-0400 Respiratory rate 20 /min Artie Jackson MD Work Phone: [employer] Work Phone: 09-04-2021 21:02-0400 SaO2% (BldA) [Mass fraction] 100 % Artie Jackson MD Work Phone: [employer] Work Phone: 09-04-2021 21:02-0400 Systolic blood pressure 178 mm[Hg] Artie Jackson MD Work Phone: [employer] Work Phone: 09-02-2021 14:41-0400 Body temperature 98.78 [degF] LATRELL MENDIOLA DO [facility] 09-02-2021 14:41-0400 Body weight 135.2 kg LATRELL MENDIOLA DO [facility] 09-02-2021 14:41-0400 Diastolic blood pressure 98 mm[Hg] LATRELL MENDIOLA DO [facility] 09-02-2021 14:41-0400 Heart rate 113 /min LATRELL MENDIOLA DO [facility] 09-02-2021 14:41-0400 Respiratory rate 18 /min LATRELL MENDIOLA DO [facility] 09-02-2021 14:41-0400 Systolic blood pressure 151 mm[Hg] LATRELL MENDIOLA DO [facility] 11-15-2020 10:15-0500 BP Di[facility] 72 mm[facility]Hg[facility] [place] 11-15-2020 10:15-0500 BP Systolic 147 mm[Hg] [facility] [place] 11-15-2020 10:15-0500 Pulse (Heart Rate) 96 /min [facility] 11-15-2020 10:15-0500 Pulse Oximetry 96 % [facility] [place] 11-15-2020 10:15-0500 Respiratory Rate 13 /min [facility] [place] 11-15-2020 10:04-0500 Body Temperature 98.91 [degF] [facility] [place] 11-15-2020 08:20-0500 BMI (Body Mass Index) 34.65 kg/m2 Shashank Miller [facility] 11-15-2020 08:20-0500 Body weight 122.43 kg Shashank Miller [facility] [place] 11-15-2020 08:20-0500 Height 188 cm Shashank Miller [facility] [place] 05-14-2020 10:31-0400 Body Temperature 98.01 [degF] Tuyet Miller [facility], [place] 05-14-2020 10:31-0400 BP Diastolic 91 mm[Hg] Tuyet Miller [facility] [place] 05-14-2020 10:31-0400 BP Systolic 122 mm[Hg] [facility] [place] 05-14-2020 10:31-0400 Pulse (Heart Rate) 102 /min Tuyet Miller [facility] 05-14-2020 10:31-0400 Pulse Oximetry 99 % Tuyet Miller [facility] [place] 05-14-2020 07:55-0400 BMI (Body Mass Index) 33.77 kg/m2 Tuyet Miller [facility] 05-14-2020 07:55-0400 Body weight 119.3 kg Tuyet Miller [facility] [place] 05-14-2020 07:55-0400 Height 188 cm Tuyet Miller [facility] [place] 05-14-2020 07:45-0400 Respiratory Rate 14 /min Tuyet Miller [place], [place] Encounters Encounter Date Encounter Type Care Provider Facility Start: 10-06-2025 ambulatory Phoebe Adam [employer] Facility :[facility] Start: 09-07-2025 End: 09-10-2025 Evaluation and management of inpatient Phoebe Adam [employer] Facility:[facility] Start: 09-07-2025 ambulatory Phoebe Adam [employer] Facility :[facility] Start: 08-27-2025 ambulatory Phoebe Adam [employer] Facility :[facility] Start: 07-12-2025 End: 07-13-2025 Refill Artie Jackson MD Work Phone: [facility] Comment on above: Hyperlipidemia LDL g oal <70 Cardiomyopathy, unsp ecified type (HCC); Essential hypertension Start: 07-09-2025 End: 07-09-2025 Refill Shreya Olivera [employer] Work Phone: [facility] Start: 06-18-2025 End: 08-18-2025 Follow-up encounter Shreya Bert [employer] Work Phone: [facility] Comment on above: Hemoglobin A1c, CBC auto differential, Basic metabolic panel Start: 06-16-2025 End: 06-16-2025 Office outpatient visit 25 minutes Shreya Bert [employer] Work Phone: [facility] Comment on above: Type 2 diabetes diane itus with diabetic polyneuropathy, with long-term current use of insulin (HCC) (Primary Dx); Chronic renal disease, stage IV ([facility]); Low hemoglobin; Cardiomyopathy, unspecified type ([facility]); Diabetes mellitus with proteinuria (CMS/HCC) (HCC) ([facility]); Essential hypertension; Hyperlipidemia LDL goal <70; Paroxysmal atrial fibrillation ([facility]); Open wound of skin Start: 06-16-2025 End: 06-18-2025 Refill Artie Jackson MD Work Phone: [facility] Comment on above: Type 2 diabetes diane itus with diabetic polyneuropathy, with long-term current use of insulin ([facility]) Start: 06-11-2025 End: 06-12-2025 Refill Shreyamar Olivera [employer] Work Phone: [facility] Start: 06-10-2025 End: 06-10-2025 Orders Only Phoebe Adam [employer] Work Phone: [facility] Comment on above: Type 2 diabetes diane itus with diabetic polyneuropathy, with long-term current use of insulin (HCC) Start: 05-21-2025 End: 05-21-2025 Refill Artie Jackson MD Work Phone: [facility] Start: 04-27-2025 End: 04-28-2025 Refill Shreyamar Olivera [employer] Work Phone: [facility] Comment on above: Diabetes mellitus wi th proteinuria (CMS/HCC) (HCC) (HCC); Type 2 diabetes mellitus with diabetic polyneuropathy, with long-term current use of insulin ([facility]) Start: 04-15-2025 End: 04-16-2025 Lorna Jackson MD Work Phone: [facility] Start: [facility]-16-[facility] Start: 03-02-2025 End: 03-02-2025 Orders Only Phoebe S Jair [employer] Work Phone: [facility] Start: 02-17-2025 ambulatory JOSE MORRISON [facility] Start: 02-10-2025 End: 02-15-2025 Evaluation and management of inpatient VIRIDIANA WILLIAM MD [facility] Start: 02-09-2025 End: 02-10-2025 Emergency department patient visit VIRIDIANA WILLIAM MD Facility:[facility] Start: 02-09-2025 End: 02-09-2025 ambulatory GARRICK VELASQUEZ [facility] Start: 02-05-2025 End: 02-05-2025 ambulatory [facility]ielos Lu [facility] Start: 02-05-2025 End: 02-05-2025 Patient encounter procedure Marielos Lu RN [facility] Start: 01-22-2025 End: 01-22-2025 Office outpatient visit 25 minutes Jose Morrison MD Work Phone: [facility] Comment on above: 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); Claire gangrene Start: 01-22-2025 End: 01-22-2025 ambulatory JOSE MORRISON [facility] Start: 01-22-2025 End: 01-29-2025 Telephone encounter Jose Morrison MD Work Phone: [facility] Comment on above: Surgery Scheduling Start: 01-04-2025 End: 01-05-2025 Refill Phoebe Adam [employer] Work Phone: [facility] Comment on above: Type 2 diabetes diane itus with diabetic polyneuropathy, with long-term current use of insulin (HCC) Start: 12-30-2024 ambulatory [facility] Facility: [facility] Start: 12-09-2024 End: 12-15-2024 Telephone encounter Garrick Velasquez MD Work Phone: [facility] Comment on above: Surgery Scheduling Start: 12-09-2024 End: 12-09-2024 Office outpatient new 45 minutes Garrick Velasquez MD Work Phone: [facility] Comment on above: Claire gangrene (P rimary Dx); 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; Gross hematuria; Chronic kidney disease, unspecified CKD stage Start: 12-09-2024 End: 12-09-2024 ambulatory [facility] Start: 11-26-2024 ambulatory [facility] Start: 11-26-2024 End: 12-19-2024 ambulatory [facility] Facility:[facility] Start: 11-19-2024 End: 11-20-2024 Refill Phoebe Adam [employer] Work Phone: [facility] Start: 10-21-2024 End: 11-24-2024 Telephone encounter Garrick Velasquez MD Work Phone: [facility] Comment on above: Cancelled Appointmen t Start: 10-15-2024 End: 10-18-2024 ambulatory [facility] Facility:[facility] Start: 09-22-2024 End: 09-22-2024 Office outpatient visit 25 minutes Phoebe Adam [employer] Work Phone: [facility] Comment on above: Diabetes mellitus wi [...] Start: 09-22-2024 End: 09-22-2024 ambulatory PHOEBE ADAM [facility] Start: 09-17-2024 ambulatory [facility] Facility:[facility] Start: 09-17-2024 End: 09-18-2024 ambulatory [facility] Facility:[facility] Start: 09-11-2024 End: 09-11-2024 Refill Shreya Olivera [employer] Work Phone: [facility] Comment on above: Essential hypertensi on Start: 08-18-2024 End: 08-18-2024 Orders Only Phoebe Adam [employer] Work Phone: [facility] Start: 08-10-2024 End: 08-11-2024 Refill Shreya Olivera [employer] Work Phone: [facility] Comment on above: Essential hypertensi on (Primary Dx) Start: 06-18-2024 End: 06-30-2024 Evaluation and management of inpatient DR ILEANA RICO MD [facility] Start: 06-17-2024 ambulatory PHOEBE ADAM [employer] Facility:[facility] Start: 06-06-2024 End: 06-06-2024 Emergency department patient visit JIMENA HOGAN DO [facility] Start: 05-31-2024 End: 06-02-2024 Refill Artie Jackson MD Work Phone: [facility] Comment on above: Type 2 diabetes diane itus with diabetic polyneuropathy, with long-term current use of insulin ([facility]) Start: 05-08-2024 End: 05-15-2024 Evaluation and management of inpatient DR TORI JOHNSON MD [facility] Start: 05-07-2024 End: 05-08-2024 Emergency department patient visit JIMENA HOGAN DO [facility] Start: 04-16-2024 End: 05-06-2024 Evaluation and management of inpatient JOAN MCKEON MD [facility] Start: 04-15-2024 End: 04-16-2024 Emergency department patient visit MARTÍNEZ ACUNA MD [facility] Start: 04-06-2024 End: 04-06-2024 Emergency department patient visit MATHEW MALONE DO [facility] Start: 04-02-2024 Refill Artie Jackson MD Work Phone: [facility] Start: 03-08-2024 End: 03-11-2024 ambulatory [employer] G[employer]TER-[employer] MACHINE TENDER Facility:B Start: 03-08-2024 End: 03-11-2024 Observation [employer] GUN [employer]TER-[employer] MACHINE TENDER [facility] Start: 02-18-2024 Refill Shreya pratt GUN FITTER - [employer] M[employer]INE TENDER Work Phone: [facility] Start: 02-05-2024 Refill Artie Jackson MD Work Phone: [facility] Comment on above: Type 2 diabetes diane itus with diabetic polyneuropathy, with long-term current use of insulin (CMS/HCC) (HCC); Diabetic polyneuropathy associated with type 2 diabetes mellitus (CMS/HCC) (HCC); 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) Start: 01-20-2024 Refill Phoebe Adam GUN FITTER - [employer] MACHINE TENDER Work Phone: [facility] Comment on above: Hyperlipidemia LDL g oal <70 Start: 01-01-2024 Refill Shreya Kendall pratt GUN FITTER - [employer] M[employer]INE TENDER Work Phone: [facility] Start: 12-26-2023 Orders Only Phoebe Adam GUN FITTER - [employer]INE TENDER Work Phone: [facility] Comment on above: Type 2 diabetes daine itus with diabetic polyneuropathy, with long-term current use of insulin (CMS/HCC) (HCC); Chronic renal disease, stage IV ([facility]) Start: 12-16-2023 Refill Shreya Kendall pratt GUN FITTER - [employer] TENDER Work Phone: [facility] Comment on above: Type 2 diabetes diane itus with diabetic polyneuropathy, with long-term current use of insulin (CMS/HCC) (HCC); Diabetic polyneuropathy associated with type 2 diabetes mellitus (CMS/HCC) (HCC); 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) Start: 10-18-2023 Refill Phoebe Adam GUN FITTER - [employer]INE TENDER Work Phone: [facility] Comment on above: Type 2 diabetes diane itus with diabetic polyneuropathy, with long-term current use of insulin (CMS/HCC) (HCC); Diabetic polyneuropathy associated with type 2 diabetes mellitus (CMS/HCC) (HCC) Start: 10-17-2023 Orders Only Phoebe Adam GUN FITTER - [employer] MACHINE TENDER Work Phone: [facility] Comment on above: Type 2 diabetes daine itus with diabetic polyneuropathy, with long-term current use of insulin (CMS/HCC) (HCC) (Primary Dx); Chronic renal disease, stage IV (HCC) Start: 10-03-2023 Orders Only Phoebe Adam GUN FITTER - [employer] MACHINE TENDER Work Phone: [facility] Start: 10-03-2023 Refill Shreyamar Parkerclarita pratt GUN FITTER - [employer] MACHINE TENDER Work Phone: [facility] Start: 08-26-2023 Refill Phoebe Adam GUN FITTER - [employer] MACHINE TENDER Work Phone: [facility] Start: 08-15-2023 Refill Artie Jackson MD Work Phone: [facility] Start: 07-30-2023 Refill Shreya Keithclarita pratt GUN FITTER - [employer] MACHINE TENDER Work Phone: [facility] Comment on above: Type 2 diabetes diane itus with diabetic polyneuropathy, with long-term current use of insulin ([facility]) ([facility]); Diabetic polyneuropathy associated with type 2 diabetes mellitus ([facility]) ([facility]); Diabetes mellitus with proteinuria ([facility]) ([facility]) Start: 07-30-2023 Telephone encounter Artie Ruiz MD Work Phone: [facility] Comment on above: other Start: 07-20-2023 Refill Phoebe Adam GUN FITTER - [employer] M[employer] TENDER Work Phone: [facility] Comment on above: Hyperlipidemia LDL g oal <70 Start: 07-12-2023 Refill Phoebe Adam GUN FITTER - [employer] MACHINE TENDER Work Phone: [facility] Start: 07-07-2023 End: 07-07-2023 Emergency department patient visit CLEM BOOKER MD [facility] Start: 07-05-2023 Refill Shreyamar Parkerclarita pratt GUN FITTER - [employer] M[employer] TENDER Work Phone: [facility] Comment on above: Type 2 diabetes diane itus with diabetic polyneuropathy, with long-term current use of insulin (CMS/HCC) (HCC); Diabetic polyneuropathy associated with type 2 diabetes mellitus (CMS/HCC) (HCC); Diabetes mellitus with proteinuria (CMS/HCC) (HCC) Start: 07-03-2023 Telephone encounter Kasey Hankins [facility] Comment on above: Orders Start: 07-02-2023 Orders Only Phoebe Adam GUN FITTER - [employer]INE TENDER Work Phone: [facility] Comment on above: Type 2 diabetes diane itus with diabetic polyneuropathy, with long-term current use of insulin (CMS/HCC) (HCC); Class 2 obesity due to excess calories without serious comorbidity with body mass index (BMI) of 38.0 to 38.9 in adult Start: 05-28-2023 Orders Only Phoebe Adam GUN FITTER - [employer] MACHINE TENDER Work Phone: [facility] Comment on above: Type 2 diabetes diane itus with diabetic polyneuropathy, with long-term current use of insulin (CMS/HCC) ([facility]) (Primary Dx) Start: 05-18-2023 Telephone encounter Artie Ruiz MD Work Phone: [facility] Comment on above: Release of Informati on Start: 05-13-2023 Refill Shreya pratt GUN FITTER - [employer] TENDER Work Phone: [facility] Comment on above: Type 2 diabetes diane itus with diabetic polyneuropathy, with long-term current use of insulin (CMS/HCC) (HCC); Diabetic polyneuropathy associated with type 2 diabetes mellitus (CMS/HCC) (HCC); Diabetes mellitus with proteinuria (CMS/HCC) (HCC) Start: 05-09-2023 Orders Only Shreya pratt GUN FITTER - [employer] MACHINE TENDER Work Phone: [facility] Start: 05-05-2023 Refill Shreya pratt GUN FITTER - [employer] MACHINE TENDER Work Phone: [facility] Comment on above: Type 2 diabetes diane itus with diabetic polyneuropathy, with long-term current use of insulin (CMS/HCC) (HCC) Start: 04-20-2023 Refill Phoebe Adam GUN FITTER - [employer] TENDER Work Phone: [facility] Start: 04-06-2023 Telephone encounter Shreyamar monroe GUN FITTER - [employer] MACHINE TENDER Work Phone: [facility] Comment on above: Results Start: 03-21-2023 Orders Only Phoebe Adam GUN FITTER - [employer] M[employer]INE TENDER Work Phone: [facility] Comment on above: Diabetes mellitus wi th proteinuria ([facility]/HCC) ([facility]) (Primary Dx); Elevated serum creatinine Start: 03-20-2023 Refill Artie Jackson MD Work Phone: [facility] Start: 03-19-2023 Refill Phoebe Adam GUN FITTER - [employer] MACHINE TENDER Work Phone: [facility] Start: 01-22-2023 Ophthalmic examinati on and evaluation Phoebe Adam GUN FITTER - [employer] M[employer] TENDER Work Phone: [facility] Start: 01-22-2023 Refill Phoebe Adam GUN FITTER - [employer] MACHINE TENDER Work Phone: [facility] Comment on above: Type 2 diabetes diane itus with diabetic polyneuropathy, with long-term current use of insulin ([facility]/HCC) ([facility]); Diabetic polyneuropathy associated with type 2 diabetes mellitus (CMS/HCC) ([facility]); Diabetes mellitus with proteinuria ([facility]/HCC) ([facility]) [facility] ([facility] Start: 01-21-2023 Refill Artie Jackson MD Work Phone: [facility] Start: 01-10-2023 Orders Only Phoebe Adam GUN FITTER - [employer] M[employer] TENDER Work Phone: [facility] Comment on above: Diabetes mellitus wi th proteinuria (CMS/HCC) ([facility]) (Primary Dx); Elevated serum creatinine; Type 2 diabetes mellitus with diabetic polyneuropathy, with long-term current use of insulin ([facility]/HCC) (HCC); Poorly controlled type 2 diabetes mellitus (CMS/HCC) (HCC) Start: 01-08-2023 Refjayson Jackson MD Work Phone: [facility] Start: 01-08-2023 End: 01-08-2023 Office outpatient visit 25 minutes Phoebe S Jair PIZARRO - [employer] MACHINE TENDER Work Phone: [facility] Comment on above: Type 2 diabetes diane itus with diabetic polyneuropathy, with long-term current use of insulin (CMS/HCC) ([facility]) (Primary Dx); Diabetic polyneuropathy associated with type 2 diabetes mellitus (CMS/HCC) ([facility]); Diabetes mellitus with proteinuria (CMS/HCC) ([facility]); Encounter for diabetic foot exam ([facility]); Essential hypertension; Hyperlipidemia LDL goal <70; Cigarette nicotine dependence without complication; Class 2 obesity due to excess calories without serious comorbidity with body mass index (BMI) of 38.0 to 38.9 in adult; Gastroesophageal reflux disease, unspecified whether esophagitis present; Screening for prostate cancer Start: 01-01-2023 Refjayson Jackson MD Work Phone: [facility] Start: 12-22-2022 End: 12-22-2022 Office outpatient new 20 minutes Tu Goetz MD Work Phone: [facility] [place] Comment on above: Charcot's joint of r ight foot; Type 2 diabetes mellitus with diabetic polyneuropathy, with long-term current use of insulin (CMS/HCC) ([facility]); Diabetic polyneuropathy associated with type 2 diabetes mellitus (CMS/HCC) ([facility]) Start: 12-22-2022 End: 12-22-2022 Subsequent hospital visit by physician Tu Goetz MD Work Phone: [facility] Radiology Comment on above: Right foot pain Start: 12-08-2022 Transcribe Orders Sania BORREGO Work Phone: [facility] Comment on above: Pain in right foot ( Primary Dx) Start: 12-07-2022 Orders Only Sania BORREGO Work Phone: [facility] Comment on above: Right foot pain (Paradise rachel Dx) Start: 11-22-2022 Refill Artie Jackson MD Work Phone: [facility] Start: 09-28-2022 Transcribe Orders Shreya Keith oconnor GUN FITTER - [employer] MACHINE TENDER Work Phone: [facility] Start: 12-13-2021 End: 12-14-2021 Emergency department patient visit DR RAMON MIN MD [facility] Start: 09-04-2021 End: 09-04-2021 Emergency department patient visit Artie Jackson MD Work Phone: [facility] Comment on above: Finger swelling (Paradise rachel Dx); Pain of finger of left hand Start: 09-02-2021 End: 09-02-2021 Emergency department patient visit LATRELL Ornelas MAURY POSEY [facility] Start: 11-15-2020 End: 11-15-2020 Subsequent hospital visit by physician Shashank Finch Work Phone: [facility] General Surgery Comment on above: Arrived Start: 11-09-2020 End: 11-09-2020 Subsequent hospital visit by physician Shashank Finch Work Phone: [facility] Radiology Start: 05-14-2020 End: 05-14-2020 Subsequent hospital visit by physician Tuyet Gupta Work Phone: [facility] Comment on above: Arrived Procedures Date Procedure Procedure Detail Performing Clinician Start: 03-17-2025 Adult depression screening assessment Artie Jackson MD Work Phone: Start: 01-22-2025 AEROBIC AND ANAEROBI C CULTURE WITH STAIN Jose Morrison MD Work Phone: Start: 09-22-2024 Lipid 1996 panel - S theo or Plasma Phoebe Adam GUN FITTER - [employer]INE TENDER Work Phone: Start: 09-20-2024 Adult depression screening assessment Phoebe Adma GUN FITTER - [employer] MACHINE TENDER Work Phone: Start: 08-26-2024 Adult depression screening assessment Shreya Olivera GUN FITTER - [employer] M[employer]INE TENDER Work Phone: Start: 05-08-2023 Basic metabolic pane l calcium total Shreya Parkerenthal GUN FITTER - [employer] M[employer]INE TENDER Work Phone: Start: 01-08-2023 Adult depression screening [...] Testis structure (val dy structure) [employer] G[employer]TER-[employer] MACHINE TENDER Comment on above: Twisted testicle Amputation [employer] APR N-[employer] MACHINE TENDER Comment on above: Right foot 2nd and 3 rd toes, left foot 4th toe Testis structure (val dy structure) LATRELL MENDIOLA DO Plan of Treatment Date Care Activity Detail Author Start: 2052 RSV Immunization for Adults (1 - 1-dose 75+ series) RSV Immunization for Adults (1 - 1-dose 75+ series) [email or web address] Start: 2037 RSV Immunization aged 60 or older (1 - 1-dose 60+ series) RSV Immunization aged 60 or older (1 - 1-dose 60+ series) [facility] Start: 08-17-2028 DTaP/Tdap/Td vaccine (2 - Td or Tdap) DTaP/Tdap/Td vaccine (2 - Td or Tdap) [facility] Work Phone: Start: 08-17-2028 DTaP/Tdap/Td Vaccines (2 - Td or Tdap) DTaP/Tdap/Td Vaccines (2 - Td or Tdap) [facility] Start: 2027 Zoster Vaccines (1 of 2) Zoster Vaccines (1 of 2) [facility] Start: 06-16-2026 Creatinine measurement Creatinine Level [facility] Start: 06-16-2026 Hemoglobin A1c measurement Diabetes: Hemoglobin A1C [facility] Start: 06-16-2026 Potassium measurement Potassium Level [facility] Start: 03-17-2026 Depression Screening Depression Screening [facility] Start: 10-30-2025 Glaucoma screening Diabetes: Retinopathy Screening [facility] Start: 09-24-2025 Diabetes: Urine Albumin-Creatinine Ratio for Kidney Health Diabetes: Urine Albumin-Creatinine Ratio for Kidney Health [facility] Start: 09-22-2025 COVID-19 Vaccine ( season) COVID-19 Vaccine ( season) [facility] Comment on above: Postponed from 07/20/2024 (Patient Refus ed) Start: 09-22-2025 Creatinine measurement Creatinine Level [facility] Start: 09-22-2025 Diabetes: Estimated Glomerular Filtration Rate for Kidney Health Diabetes: Estimated Glomerular Filtration Rate for Kidney Health [facility] Start: 09-22-2025 Diabetic foot examination Diabetes: Foot Exam [facility] Start: 09-22-2025 Hemoglobin A1c measurement Diabetes: Hemoglobin A1C [facility] Start: 09-22-2025 Hepatitis A Vaccines (1 of 2 - Risk 2-dose series) Hepatitis A Vaccines (1 of 2 - Risk 2-dose series) [facility] Comment on above: Postponed from 1996 (Patient Refus ed) Start: 09-22-2025 Hepatitis C screening Hepatitis C Screening [facility] Comment on above: Postponed from 1995 (Patient Refus ed) Start: 09-22-2025 HIV screening HIV Screening [facility] Comment on above: Postponed from 1977 (Patient Refus ed) Start: 09-22-2025 Lipid panel Lipid Panel [facility] Start: 09-22-2025 Pneumococcal Vaccine: Pediatrics (0 to 5 Years) and At-Risk Patients (6 to 49 Years) (1 of 2 - PCV) Pneumococcal Vaccine: Pediatrics (0 to 5 Years) and At-Risk Patients (6 to 49 Years) (1 of 2 - PCV) [facility] Comment on above: Postponed from 1996 (Patient Refus ed) Start: 09-22-2025 Pneumococcal Vaccine: Pediatrics (0 to 5 Years) and At-Risk Patients (6 to 64 Years) (1 of 2 - PCV) Pneumococcal Vaccine: Pediatrics (0 to 5 Years) and At-Risk Patients (6 to 64 Years) (1 of 2 - PCV) [facility] Comment on above: Postponed from 1983 (Patient Refus ed) Start: 09-22-2025 Potassium measurement Potassium Level [facility] Start: 09-22-2025 Screening for malignant neoplasm of colon Colorectal Cancer Screening [facility] Comment on above: Postponed from 1977 (Patient Refus ed) Start: 09-20-2025 Depression Screening Depression Screening [facility] Start: 09-15-2025 End: 09-15-2025 Patient encounter procedure [facility] Start: 08-26-2025 Depression Screening Depression Screening [facility] Start: 07-20-2025 COVID-19 Vaccine ( season) COVID-19 Vaccine ( season) [facility] Start: 07-20-2025 Influenza vaccination [facility] Start: 06-16-2025 End: 06-16-2026 Basic metabolic 1998 panel - Serum or Plasma Basic metabolic panel Lab Routine Chronic renal disease, stage IV (HCC) Expected: 06/16/2025 (Approximate), Expires: 06/16/2026 [facility] Comment on above: Expected: 06/16/2025 (Approximate), Expi res: 06/16/2026 Start: 06-16-2025 End: 06-16-2026 CBC W Auto Differential panel - Blood CBC auto differential Lab Routine Low hemoglobin Expected: 06/16/2025 (Approximate), Expires: 06/16/2026 [facility] Comment on above: Expected: 06/16/2025 (Approximate), Expi res: 06/16/2026 Start: 06-16-2025 End: 06-16-2026 Hemoglobin A1c measurement Hemoglobin A1c Lab Routine Type 2 diabetes mellitus with diabetic polyneuropathy, with long-term current use of insulin (HCC) Expected: 06/16/2025 (Approximate), Expires: 06/16/2026 [facility] Work Phone: Comment on above: Expected: 06/16/2025 (Approximate), Expi res: 06/16/2026 Start: 06-16-2025 End: 06-16-2025 Patient encounter procedure 06/16/2025 1:20 PM EDT [facility] [address] [place] [address] [place] [address] Shreya Olivera, GUN FITTER - [employer] M[employer]INE TENDER [address] [place], [place] [id number] [facility] [place] Start: 06-08-2025 End: 06-08-2025 Patient encounter procedure 06/08/2025 8:20 AM EDT Office Visit [facility] [place] [address] [place] [address] [place] [address] Phoebe Adam, GUN FITTER - [employer] MACHINE TENDER [address] [place] [address] [place] [address] [facility] [place] Start: 05-18-2025 Influenza vaccination Influenza Vaccine (#1) [facility] Comment on above: Postponed from 07/20/2024 (Patient Refus ed) Start: 05-13-2025 End: 05-13-2025 Patient encounter procedure 05/13/2025 8:20 AM EDT Office Visit [facility] [place] [address] [place] [address] [place] [address] Shreya Olivera, GUN FITTER - [employer] MACHINE TENDER [address] [place] [address] [place] [address] [facility] Start: 03-12-2025 End: 03-12-2025 Patient encounter procedure 03/12/2025 8:40 AM EDT Office Visit [facility] [address] [place] [address] Emily Darby DO [address] [place] [address] [facility] Start: 03-10-2025 End: 03-10-2025 Patient encounter procedure 03/10/2025 3:20 PM EDT Office Visit [facility] [address] [place] [address] Shreya Olivera, GUN FITTER - [employer] MACHINE TENDER [address] [place] [address] [place] [address] [facility] [place] Start: 02-26-2025 End: 02-26-2025 Admission to same day surgery center 02/26/2025 9:30 AM EDT - 02/26/2025 10:30 AM EDT Surgery [facility] [address] [place] [id number] Jose Morrison MD [address] [place] [address] CYSTOSCOPY, BILATERAL RETROGRADE PYELOGRAM, RETROGRADE URETHROGRAM [35032 (CPT )] [facility] Comment on above: CYSTOSCOPY, BILATERAL RETROGRADE PYELOGR AM, RETROGRADE URETHROGRAM [76231 (CPT )] Start: 02-26-2025 End: 02-26-2025 Cysto bladder w/ureteral catheterization CYSTOSCOPY, WITH RETROGRADE PYELOGRAM Vesical fistula, 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 02/26/2025 9:30 AM EDT [facility] Operating Room Start: 02-26-2025 End: 02-26-2025 Cystography minimum 3 views rs&i CYSTOGRAM Vesical fistula, 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 02/26/2025 9:30 AM EDT [facility] Operating Room Start: 02-26-2025 Subsequent hospital visit by physician 02/26/2025 9:30 AM EDT Hospital Encounter [facility] [address] [place] [phone] Jose Morrison MD [address] [place] [address] [facility] Start: 02-19-2025 End: 02-19-2025 Admission to establishment 02/19/2025 2:00 PM EDT Pre-Admission Testing [facility] Pre-Admit Testing [address] [place] [phone] [facility] Pre-Admit Testing Start: 02-09-2025 End: 02-09-2025 Patient encounter procedure 02/09/2025 8:45 AM EDT Appointment [facility] [address] [place] [phone] Garrick Velasquez MD [address] [facility] [address] [place] [address] [facility] [address] Start: 02-09-2025 Subsequent hospital visit by physician 02/09/2025 8:45 AM EDT Hospital Encounter [facility] [address] [place] [phone] Garrick Velasquez MD [address] [facility] [address] [place] [address] [facility] [address] Start: 02-02-2025 End: 02-02-2025 Patient encounter procedure 02/02/2025 2:20 PM EDT Office Visit [facility] [place] [address] [place] [address] [place] [address] Phoebe Adam APRN - [employer] M[employer]INE TENDER [address] [place] [address] [place] [address] [facility] [place] Start: 01-30-2025 End: 01-30-2025 Clinical Support 01/30/2025 11:00 AM EDT Clinical Support [facility] [place] [address] [place] [address] [place] [address] [facility] [place] Start: 01-21-2025 End: 01-21-2025 Patient encounter procedure 01/21/2025 11:30 AM EST Office Visit [facility] [address] [place] [address] Jose Morrison MD [address] [place] [address] [facility] Start: 12-30-2024 End: 12-30-2024 Patient encounter procedure 12/30/2024 9:40 AM EST Office Visit [facility] [address] [facility] [address] [place] [phone] Jose Morrison MD [address] [place] [address] [facility] Start: 12-24-2024 End: 12-24-2024 Patient encounter procedure 12/24/2024 2:20 PM EST Office Visit [facility] [place] [address] [place] [address] [place] [address] Phoebe Adam, MOIRA - [employer] MACHINE TENDER [address] [place] [address] [place] [address] [facility] Start: 12-24-2024 End: 12-24-2024 Patient encounter procedure 12/24/2024 11:50 AM EST Office Visit [facility] [address] [place] [address] Jose Morrison MD [address] [place] [address] [facility] Start: 12-23-2024 End: 12-23-2024 Patient encounter procedure 12/23/2024 3:45 PM EST Appointment [facility] [address] [place] [phone] Garrick Velasquez MD [address] [place] [address] [facility] [address] Start: 12-23-2024 Subsequent hospital visit by physician 12/23/2024 3:45 PM EST Hospital Encounter [facility] [address] [place] [address] Garrick Velasquez MD [address] [place], [place] [id number] [facility] [address] Start: 12-16-2024 End: 12-16-2024 Patient encounter procedure 12/16/2024 10:30 AM EST Office Visit [facility] [address] [facility] [address] [place] [phone] Jose Morrison MD [address] [facility] [address] [place], [place] [id number] [facility] Start: 12-09-2024 End: 12-09-2025 Basic metabolic 1998 panel - Serum or Plasma Basic metabolic panel Lab Routine Chronic kidney disease, unspecified CKD stage Expected: 12/09/2024 (Approximate), Expires: 12/09/2025 [facility] Comment on above: Expected: 12/09/2024 (Approximate), Expi res: 12/09/2025 Start: 12-09-2024 End: 12-09-2025 CT Abdomen and Pelvis WO contrast CT abdomen pelvis wo IV contrast Imaging Routine Gross hematuria Expected: 12/09/2024, Expires: 12/09/2025 [facility] Work Phone: Comment on above: Expected: 12/09/2024, Expires: Start: 12-09-2024 End: 12-09-2024 Patient encounter procedure 12/09/2024 9:30 AM EST Office Visit [facility] [address] [facility] [address] [place] [phone] Garrick Velasquez MD [address] [facility] [address] [place] [address] [facility] Start: 11-25-2024 End: 11-25-2024 Patient encounter procedure 11/25/2024 9:30 AM EST Office Visit [facility] [address] [facility] [address] [place] [id number] Garrick Velasquez MD [address] [address] [facility] Start: 10-30-2024 Glaucoma screening Diabetes: Retinopathy Screening [facility] Start: 10-27-2024 End: 10-27-2024 Patient encounter procedure 10/27/2024 1:20 PM EST Office Visit [facility] [address] [place] [address] Phoebe Adam, MOIRA - [employer]ER [address] [place] [address] [facility] Start: 10-16-2024 Creatinine measurement Creatinine Level [facility] Start: 10-16-2024 Diabetes: Estimated Glomerular Filtration Rate for Kidney Health Diabetes: Estimated Glomerular Filtration Rate for Kidney Health [facility] Start: 10-16-2024 Potassium measurement Potassium Level [facility] Start: 09-22-2024 End: 09-22-2025 Bacteria identified in Urine by Culture Urine culture (clean catch) Microbiology Routine Necrotizing fasciitis (HCC) Expected: 09/22/2024 (Approximate), Expires: 09/22/2025 [facility] Comment on above: Expected: 09/22/2024 (Approximate), Expi [...] goal <70 Expected: 09/22/2024 (Approximate), Expires: 09/22/2025 [email or web address] Comment on above: Expected: 09/22/2024 (Approximate), Expi [...] goal <70 Expected: 09/22/2024 (Approximate), Expires: 09/22/2025 [email or web address] Comment on above: Expected: 09/22/2024 (Approximate), Expi res: 09/22/2025 Start: 09-22-2024 End: 09-22-2025 Hemoglobin A1c measurement Hemoglobin A1c Lab Routine 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) Type 2 diabetes mellitus with diabetic polyneuropathy, with long-term current use of insulin (HCC) Expected: 09/22/2024 (Approximate), Expires: 09/22/2025 [email or web address] Comment on above: Expected: 09/22/2024 (Approximate), Expi res: 09/22/2025 Start: 09-22-2024 End: 09-22-2025 Lipid 1996 panel - Serum or Plasma Lipid panel Lab Routine Cardiomyopathy, unspecified type (HCC) Hyperlipidemia LDL goal <70 Expected: 09/22/2024 (Approximate), Expires: 09/22/2025 [facility] Work Phone: Comment on above: Expected: 09/22/2024 (Approximate), Expi res: 09/22/2025 Start: 09-22-2024 End: 09-22-2025 Microalbumin/Creatinine panel in random Urine Microalbumin / creatinine urine ratio Lab Routine 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) Type 2 diabetes mellitus with diabetic polyneuropathy, with long-term current use of insulin (HCC) Chronic renal disease, stage IV (HCC) Expected: 09/22/2024 (Approximate), Expires: 09/22/2025 [facility] Comment on above: Expected: 09/22/2024 (Approximate), Expi res: 09/22/2025 Start: 09-22-2024 End: 09-22-2025 PSA Total (Screening) PSA Total (Screening) Lab Routine Screening for prostate cancer Expected: 09/22/2024 (Approximate), Expires: 09/22/2025 [facility] Comment on above: Expected: 09/22/2024 (Approximate), Expi res: 09/22/2025 Start: 09-22-2024 End: 09-22-2025 Urinalysis macro (dipstick) panel - Urine POCT Urinalysis dipstick Point of Care Testing Routine Necrotizing fasciitis (HCC) Expected: 09/22/2024, Expires: 09/22/2025 [facility] Comment on above: Expected: 09/22/2024, Expires: Start: 09-22-2024 End: 09-22-2024 Patient encounter procedure 09/22/2024 1:40 PM EST Office Visit [facility] [place] [address] [place] [address] [place] [address] Phoebe Adam, MOIRA - OLI [address] [facility] [place] [address] [facility] Start: 08-27-2024 End: 08-27-2024 Patient encounter procedure 08/27/2024 10:00 AM EDT Office Visit [facility] [place] [address] [place] [address] [place] [address] Phoebe Adam, GUN FITTER - [employer]ER [address] [place] [address] [facility] Start: 07-20-2024 COVID-19 Vaccine ( season) COVID-19 Vaccine () [facility] Start: 07-20-2024 COVID-19 Vaccine () COVID-19 Vaccine () [facility] Start: 07-20-2024 Influenza vaccination [facility] Start: 04-09-2024 End: 04-09-2024 Patient encounter procedure 04/09/2024 10:00 AM EDT Office Visit [facility] [address] [place] [address] [place] [address] Phoebe Adam, GUN FITTER - [employer] TENDER [address] [facility] [place] [address] [place] [address] [facility] Start: 04-05-2024 Hemoglobin A1c measurement Diabetes: Hemoglobin A1C [facility] Start: 02-25-2024 End: 02-25-2024 Patient encounter procedure 02/25/2024 1:20 PM EDT Office Visit [facility] [address] [place] [address] [place] [address] Phoebe Adam, GUN FITTER - [employer] T[employer]ER [address] [facility] [place] [address] [place] [address] [facility] Start: 02-18-2024 End: 02-18-2024 Patient encounter procedure 02/18/2024 2:20 PM EDT Office Visit [facility] [address] [place] [address] [place] [address] Phoebe Adam, GUN FITTER - [employer] T[employer]ER [address] [place] [address] [place] [address] [facility] Start: 01-28-2024 End: 01-28-2024 Patient encounter procedure 01/28/2024 10:00 AM EDT Office Visit [facility] [address] [place] [address] Phoebe Adam S, GUN FITTER - [employer] T[employer]ER [address] [place] [address] [facility] Start: 01-08-2024 COVID-19 Vaccine (#1) COVID-19 Vaccine (#1) [facility] Comment on above: Postponed from 1977 (Patient Refus ed) Start: 01-08-2024 Depression Screening Depression Screening [facility] Start: 01-08-2024 Diabetes: Urine Albumin-Creatinine Ratio for Kidney Health Diabetes: Urine Albumin-Creatinine Ratio for Kidney Health [facility] Start: 01-08-2024 Diabetic foot examination Diabetes: Foot Exam [facility] Start: 01-08-2024 Hepatitis C screening Hepatitis C Screening [facility] Comment on above: Postponed from 1995 (Patient Refus ed) Start: 01-08-2024 HIV screening HIV Screening [facility] Comment on above: Postponed from 1977 (Patient Refus ed) Start: 01-08-2024 Lipid panel Lipid Panel [facility] Start: 01-08-2024 Pneumococcal Vaccine: Pediatrics (0 to 5 Years) and At-Risk Patients (6 to 64 Years) (1 - PCV) Pneumococcal Vaccine: Pediatrics (0 to 5 Years) and At-Risk Patients (6 to 64 Years) (1 - PCV) [facility] Comment on above: Postponed from 1983 (Patient Refus ed) Start: 01-08-2024 Pneumococcal Vaccine: Pediatrics (0 to 5 Years) and At-Risk Patients (6 to 64 Years) (1 of 2 - PCV) Pneumococcal Vaccine: Pediatrics (0 to 5 Years) and At-Risk Patients (6 to 64 Years) (1 of 2 - PCV) [facility] Comment on above: Postponed from 1983 (Patient Refus ed) Start: 02-20-2024 Screening for malignant neoplasm of colon Colorectal Cancer Screening [facility] Comment on above: Postponed from 1977 (Patient Refus ed) Start: 01-08-2024 Urine screening for protein Diabetes: Urine Protein Screening [facility] Start: 10-30-2023 End: 10-30-2023 Patient encounter procedure 10/30/2023 8:00 AM EST Office Visit [facility] [address] [place] [address] Shreya Olivera, GUN FITTER - [employer] T[employer]ER [address] [place] [address] [facility] Start: 07-20-2023 COVID-19 Vaccine ( season) COVID-19 Vaccine ( season) [facility] Start: 07-20-2023 Influenza vaccination [facility] Start: 07-06-2023 Hemoglobin A1c measurement Diabetes: Hemoglobin A1C [facility] Start: 07-03-2023 End: 07-03-2024 Bacteria identified in Urine by Culture Urine culture (clean catch) Microbiology Routine Urinary frequency Expected: 07/03/2023 (Approximate), Expires: 07/03/2024 [facility] Work Phone: Comment on above: Expected: 07/03/2023 (Approximate), Expi res: 07/03/2024 Start: 07-03-2023 End: 07-03-2023 Clinical Support 07/03/2023 11:00 AM EDT Clinical Support [facility] [address] [place] [address] [facility] Start: 05-18-2023 Influenza vaccination Influenza Vaccine (#1) [facility] Comment on above: Postponed from 07/20/2022 (Patient Refus ed) Start: 05-08-2023 End: 05-08-2023 Clinical Support 05/08/2023 11:00 AM EDT Clinical Support [facility] [address] [place] [address] [facility] Start: 05-03-2023 End: 05-03-2023 Clinical Support 05/03/2023 Clinical Support Family Medicine [facility] Start: 04-07-2023 Hemoglobin A1c measurement Diabetes: Hemoglobin A1C [facility] Start: 04-06-2023 End: 04-06-2023 Patient encounter procedure 04/06/2023 Office Visit Family Medicine Phoebe Adam, GUN FITTER - [employer] T[employer]ER [address] [place] [address] [facility] Start: 03-30-2023 End: 03-30-2023 Patient encounter procedure 03/30/2023 Office Visit Endocrinology Carole Beltre APRN - SENIOR DATABASE ENGINEER [address] [address] [facility] Start: 01-08-2023 End: 01-08-2024 CBC panel [...] adult Expected: 01/08/2023 (Approximate), Expires: 01/08/2024 [facility] Work Phone: Comment on above: Expected: 01/08/2023 [...] in adult Expected: 01/08/2023 (Approximate), Expires: 01/08/2024 [email or web address] Comment on above: Expected: 01/08/2023 (Approximate), Expi res: 01/08/2024 Start: 01-08-2023 End: 01-08-2024 Hemoglobin A1c/Hemoglobin.total in Blood Hemoglobin A1c Lab Routine Type 2 diabetes mellitus with diabetic polyneuropathy, with long-term current use of insulin (CMS/HCC) (HCC) Diabetic polyneuropathy associated with type 2 diabetes mellitus (CMS/HCC) (HCC) Diabetes mellitus with proteinuria (CMS/HCC) (HCC) Expected: 01/08/2023 (Approximate), Expires: 01/08/2024 [email or web address] Comment on above: Expected: 01/08/2023 (Approximate), Expi res: 01/08/2024 Start: 01-08-2023 End: 01-08-2024 Lipid 1996 panel - Serum or Plasma Lipid panel Lab Routine Hyperlipidemia LDL goal <70 Expected: 01/08/2023 (Approximate), Expires: 01/08/2024 [email or web address] Comment on above: Expected: 01/08/2023 (Approximate), Expi res: 01/08/2024 Start: 01-08-2023 End: 01-08-2024 Microalbumin/Creatinine panel in random Urine Microalbumin / creatinine urine ratio Lab Routine Type 2 diabetes mellitus with diabetic polyneuropathy, with long-term current use of insulin (CMS/HCC) (HCC) Diabetic polyneuropathy associated with type 2 diabetes mellitus (CMS/HCC) (HCC) Diabetes mellitus with proteinuria (CMS/HCC) (HCC) Expected: 01/08/2023 (Approximate), Expires: 01/08/2024 [email or web address] Comment on above: Expected: 01/08/2023 (Approximate), Expi res: 01/08/2024 Start: 01-08-2023 End: 01-08-2024 PSA screening PSA Screening Lab Routine Screening for prostate cancer Expected: 01/08/2023 (Approximate), Expires: 01/08/2024 [email or web address] Comment on above: Expected: 01/08/2023 (Approximate), Expi res: 01/08/2024 Start: 01-08-2023 End: 01-08-2023 Patient encounter procedure 01/08/2023 Office Visit Family Medicine Phoebe Adam, GUN FITTER - [employer]ER [address] [place] [address] [facility] Start: 12-27-2022 End: 12-27-2022 Patient encounter procedure 12/27/2022 Office Visit Family Medicine Phoebe Adam, GUN FITTER - [employer] TENDER [address] [place] [place] [address] [facility] Start: 12-22-2022 End: 12-22-2022 Patient encounter procedure 12/22/2022 Office Visit Orthopedic Surgery Tu Goetz MD [address] [facility] [address] [place] [address] [facility] Start: 12-22-2022 End: 12-07-2023 XR Foot - right 3 Views [facility] Work Phone: Comment on above: Expected: 12/22/2022, Expires: 4 Once for 1 Occurrenc es starting 12/22/2022 until 12/22/2022 Start: 12-22-2022 End: 12-22-2022 Documentation procedure 12/22/2022 Documentation Orthopedic Surgery [facility] Start: 12-22-2022 End: 12-22-2022 Professional / ancillary services management 12/22/2022 Ancillary Procedure Urgent Care Right foot pain [facility] Comment on above: Right foot pain Start: 12-08-2022 End: 12-08-2022 Patient encounter procedure 12/08/2022 Office Visit Orthopedic Surgery Tu Goetz MD [address] [facility] [address] [place], [place] [id number] [facility] Start: 12-08-2022 End: 12-08-2023 XR Foot - right 3 Views XR foot 3+ views right Imaging Routine Pain in right foot Expected: 12/08/2022, Expires: 12/08/2023 [email or web address] Work Phone: Comment on above: Expected: 12/08/2022, Expires: Start: 12-08-2022 End: 12-08-2022 Documentation procedure 12/08/2022 Documentation Orthopedic Surgery [facility] [place] Start: 12-07-2022 Urine screening for protein Diabetes: Urine Protein Screening [facility] Start: 08-09-2022 Hemoglobin A1c measurement Diabetes: Hemoglobin A1C [facility] Start: 07-20-2022 Influenza vaccination Influenza Vaccine (#1) [facility] Start: 06-22-2022 Creatinine measurement Creatinine monitoring [facility] Phone: Start: 06-22-2022 Diabetic microalbuminuria test Diabetic microalbuminuria test [facility] Phone: Start: 06-22-2022 Hemoglobin A1c measurement A1C test (Diabetic or Prediabetic) [facility] Phone: Start: 06-22-2022 Lipid panel [facility] Start: 06-22-2022 Pneumococcal 0-64 years Vaccine (1 of 2 - PPSV23) Pneumococcal 0-64 years Vaccine (1 of 2 - PPSV23) [facility] Phone: Comment on above: Postponed from 1983 (Patient Refus ed) Start: 06-22-2022 Potassium monitoring Potassium monitoring [employer] Work Phone: Start: 06-21-2022 HIV screening HIV screen [employer] Work Phone: Comment on above: Postponed from 1992 (Patient Refus ed) Start: 11-23-2021 Hepatitis C screening Hepatitis C screen [employer] Work Phone: Comment on above: Postponed from 1977 (Patient Refus ed) Start: 11-15-2021 Creatinine measurement Creatinine monitoring [facility] [place] Start: 11-15-2021 Pot[facility] [place] Start: 09-23-2021 End: 09-23-2021 Patient encounter procedure 09/23/2021 Office Visit Family Medicine Phoebe Adam, GUN FITTER - [employer] TENDER [address] [place] [address] [phone] [facility] Start: 09-21-2021 End: 09-21-2021 Patient encounter procedure 09/21/2021 Office Visit Family Medicine Phoebe Adam, GUN FITTER - [employer] T[employer]ER [address] [place] [address] [phone] [facility] Start: 07-20-2021 Influenza vaccination Flu vaccine (#1) [facility] Work Phone: Start: 12-12-2020 Creatinine measurement Creatinine monitoring [place], [place] Start: 12-12-2020 Diabetic foot examination Diabetic foot exam [place], [place] Start: 12-12-2020 Diabetic microalbuminuria test Diabetic microalbuminuria test [place] Start: 12-12-2020 DTaP/Tdap/Td vaccine (1 - Tdap) DTaP/Tdap/Td vaccine (1 - Tdap) [place] Comment on above: Postponed from 1996 (Patient Refus ed) Start: 12-12-2020 HbA1c (Bld) [Mass fraction] A1C test (Diabetic or Prediabetic) [place] Start: 12-12-2020 Hepatitis B vaccine (1 of 3 - Risk 3-dose series) Hepatitis B vaccine (1 of 3 - Risk 3-dose series) [place] Comment on above: Postponed from 1996 (Patient Refus ed) Start: 12-12-2020 HIV screening HIV screen [place] Comment on above: Postponed from 1992 (Patient Refus ed) Start: 12-12-2020 Influenza vaccination Flu vaccine (Season Ended) [place] Comment on above: Postponed from 07/20/2020 (Patient Refus ed) Start: 12-12-2020 Lipid panel Lipid screen [place], [place] Start: 12-12-2020 Pneumococcal 0-64 years Vaccine (1 of 1 - PPSV23) Pneumococcal 0-64 years Vaccine (1 of 1 - PPSV23) [place] Comment on above: Postponed from 1983 (Patient Refus ed) Start: 12-12-2020 Potassium monitoring Potassium monitoring [place] Start: 05-25-2020 End: 05-25-2020 Office Visit 05/25/2020 Office Visit Family Medicine Artie Jackson MD [address] [place] [address], [place] [address] [phone] [facility] Start: 1996 Hepatitis A Vaccines (1 of 2 - Risk 2-dose series) Hepatitis A Vaccines (1 of 2 - Risk 2-dose series) [facility] Start: 1996 Hepatitis B vaccine (1 of 3 - Risk 3-dose series) Hepatitis B vaccine (1 of 3 - Risk 3-dose series) [facility] Work Phone: Start: 1995 Hepatitis C screening Hepatitis C Screening [facility] Start: 1989 COVID-19 Vaccine (1) COVID-19 Vaccine (1) [facility] Work Phone: Start: 1987 Diabetic foot examination Diabetes: Foot Exam [facility] Start: 1987 Diabetic retinal exam Diabetic retinal exam [place], [place] Start: 1987 Glaucoma screening Diabetes: Retinopathy Screening [facility] Start: 1987 Preventive dental service Diabetes: Dental Exam [facility] Start: 1983 Pneumococcal Vaccine: Pediatrics (0 to 5 Years) and At-Risk Patients (6 to 64 Years) (1 - PCV) Pneumococcal Vaccine: Pediatrics (0 to 5 Years) and At-Risk Patients (6 to 64 Years) (1 - PCV) [facility] Start: 1983 Pneumococcal Vaccine: Pediatrics (0 to 5 Years) and At-Risk Patients (6 to 64 Years) (1 of 2 - PCV) Pneumococcal Vaccine: Pediatrics (0 to 5 Years) and At-Risk Patients (6 to 64 Years) (1 of 2 - PCV) [facility] Start: 1978 MMR Vaccines (1 of 1 - Standard series) MMR Vaccines (1 of 1 - Standard series) [facility] Start: 1977 COVID-19 Vaccine (#1) COVID-19 Vaccine (#1) [facility] Start: 1977 Echocardiography Echocardiogram [facility] Start: 1977 Hepatitis B Vaccines (1 of 3 - 3-dose series) Hepatitis B Vaccines (1 of 3 - 3-dose series) [facility] Start: 1977 Hepatitis C screening Hepatitis C screen [facility] Start: 1977 HIV screening HIV Screening [facility] Start: 1977 Screening for malignant neoplasm of colon [facility] Aerobic and Anaerobi c Culture with Stain [facility] Work Phone: Comment on above: Ordered: 01/22/2025 End: 05-14-2020 Blood glucose - POCT Blood glucose - POCT Point of Care Testing STAT One Time for 1 Occurrences starting 05/14/2020 until 05/14/2020 [facility] Comment on above: One Time for 1 Occurrences starting 04/20 until 05/14/2020 End: 11-15-2020 Blood glucose - POCT Blood glucose - POCT Point of Care Testing STAT One Time for 1 Occurrences starting 11/15/2020 until 11/15/2020 [facility] Comment on above: One Time for 1 Occurrences starting 10/20 until 11/15/2020 Incentive spirometry Incentive s pirometry Respiratory Care Routine Q1H PRN until discontinued starting 05/14/2020 [facility] Comment on above: Q1H PRN until discontinued starting 04/20 Initiate Oxygen Ther apy Protocol Initiate Oxygen Therapy Protocol Respiratory Care Routine Daily until discontinued starting 05/14/2020 [facility] Comment on above: Daily until discontinued starting 2019 Phase I & II - meter ed glucose [facility] Comment on above: As Needed until discontinued starting As Needed until disc ontinued starting 11/15/2020 End: 05-14-2020 Pulse Oximetry Spot Check Pulse Oximetry Spot Check Respiratory Care Routine One Time for 1 Occurrences starting 05/14/2020 until 05/14/2020 [facility] Comment on above: One Time for 1 Occurrences starting 04/20 until 05/14/2020 End: 11-09-2020 XR FOOT RIGHT (MIN 3 VIEWS) XR FOOT RIGHT (MIN 3 VIEWS) Imaging Routine Once for 1 Occurrences starting 11/09/2020 until 11/09/2020 [facility] Comment on above: Once for 1 Occurrences starting 11/09/20 20 until 11/09/2020 XR FOOT RIGHT (MIN 3 VIEWS) XR FOOT RIGHT (MIN 3 VIEWS) Imaging Routine 11/09/2020 8:57 AM EST [place] Immunizations Immunization Date Immunization Notes Care Provider Fa kasey 05-07-2024 tuberculin skin test ; purified protein derivative solution, intradermal Shreya Olivera G[employer]TER - [employer] TENDER Work Phone: [facility] 07-20-2020 influenza virus vaccine, unspecified formulation Shashank Finch [facility] 08-17-2018 tetanus toxoid, redu araceli diphtheria toxoid, and acellular pertussis vaccine, adsorbed; Translations: [Boostrix (Tdap)] LATRELL MENDIOLA DO [facility] 1978 measles, mumps and rubella virus vaccine Sania BORREGO Work Phone: [facility] 1978 measles/mumps/rubell a virus vaccine [employer]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 2022 Medicaid O ANTH MEDICAID ODM [id number] 2022 Unknown [id number] [id number]. [id number] 2022 Unknown [id number] 2021 Unknown [employer] AGE [employer]AGE [id number] 2021-Present [phone] [address] [place] [address] [id number]. [id number] 2021 Medicaid [id number]. [id number] 2019 Unknown [employer] AGE [employer]ANTAGE xxxxxxxxxxx 2019-Present [phone] [address] [place] [address] xxxxxxxxxxx [id number] 2019 Unknown [employer] AGE [employer] [id number] 2019-Present [phone] [address] [place] [address] [id number]. [id number] 1977 Unknown [id number] 2.16.840.1.894039.3.579.2. 627 1977 Unknown [id number] 2.16.840.1.078206.3.579.2. 1977 Unknown [id number] 2.16.840.1.253851.3.579.2. 1977 Unknown [id number] 2.16.840.1.841169.3.579.2. 1977 Unknown [id number] 2..840.1.580864.3.579.2. 1977 Unknown [id number] 2..840.1.956905.3.579.2. 1977 Unknown [id number] 2.840.1.067741.3.579.2. 1977 Unknown [id number] 2.840.1.762364.3.579.2. 1977 Unknown [id number] 2.840.1.092263.3.579.2. 1977 Unknown [id number] 2.840.1.068129.3.579.2. 1977 Unknown [id number] 2.840.1.903633.3.579.2 627 Unknown [id number] 2.16840.1.220829.3.579.2. 462 Unknown [id number] 2.840.1.455204.3.579.2. 462 Unknown [id number] 2.16840.1.361930.3.579.2. 462 Unknown [id number] 2.16.840.1.785903.3.579.2. 462 Unknown [id number] 2.16.840.1.414679.3.579.2. 462 Unknown [id number] 2.16.840.1.007703.3.579.2. 462 Unknown [id number] 2.16840.1.925453.3.579.2. 462 Unknown [id number] 2.16.840.1.259072.3.579.2. 462 Unknown [id number] 2.16.840.1.351601.3.579.2. 462 Unknown [id number] 2.16.840.1.723221.3.579.2. 462 Unknown [id number] 2.16.840.1.516904.3.579.2. 462 Unknown [id number] Unknown [id number] Unknown [id number] 462 Unknown [id number] 462 Unknown [id number] 462 Unknown [id number] 462 Unknown [id number] 462 Unknown [id number] Social History Date Type Detail Facility Start: 12-12-1989 End: 09-22-2024 Tobacco smoking status NHIS Current every day smoker [place] Start: 12-12-1989 History of tobacco use Cigarette Smo [place] Start: 05-14-2020 End: 09-20-2024 Cigarettes smoked current (pack per day) - Reported [place] History of tobacco use Snuff [place] Start: 05-14-2020 End: 06-16-2025 Alcohol intake Current drinker of alcohol (finding) [place] Start: 12-12-2019 History SDOH Physica l Activity DPW 0 [place] Start: 12-12-2019 History SDOH Financial 4 [place] Start: 12-12-2019 End: 05-26-2021 History SDOH Food Worry 1 [place] Start: 12-12-2019 End: 05-26-2021 [facility] [place] [place] Start: 05-14-2020 Alcohol Comment seldom [place] Start: 1975 Sex Assigned At Not on file [place] Exposure to SARS-CoV -2 (event) Unable to assess [place] Start: 11-15-2020 End: 09-22-2024 Tobacco use and exposure Current user [facility] [employer] Start: 12-12-2022 End: 07-03-2023 Exposure to SARS-CoV-2 (event) Not sure [place] Start: 04-30-2019 Heavy tobacco smoker (finding) [facility] Sex Assigned At [facility] Start: 05-26-2021 History SDOH Financial 5 [facility] [employer] Phone: Start: 01-08-2023 End: 09-20-2024 Tobacco use panel [facility] Start: 01-24-2024 Alcohol intake Lifetime non-d bill (finding) [facility] Start: 02-15-2024 Alcohol Comment Occasional [facility] Start: 08-29-2015 End: 06-19-2022 Sex Male (finding) [facility] How often do you nee d to have someone help you when you read instructions, pamphlets, or other written material from your doctor or pharmacy [SILS] Never [facility] Do you belong to any clubs or organizations such as nondenominational groups, unions, fraternal or athletic groups, or school groups? No [facility] Are you now , , , , never or living with a partner? Living with partner [facility] Do you feel stress - tense, restless, nervous, or anxious, or unable to sleep at night because your mind is troubled all the time - these days [OSQ] Not at all [facility] (I/We) worried wheth er (my/our) food would run out before (I/we) got money to buy more. Never true [facility] [employer] How often do you nee d to have someone help you when you read instructions, pamphlets, or other written material from your doctor or pharmacy [SILS] Never [facility] [employer] Medical Equipment Procedure Code Equipment Code Equipment Origin al Text Equipment Identifier Dates 1 each by In Vit ro route 2 times daily As needed. [id number] Start: 03-12-2020 1 each by Does n ot apply route 2 times daily Please dispense lancets to match the true metrix meter given. [id number] Start: 03-12-2020 TEST BLOOD SUGAR twice a day as directed [id number] Start: 10-11-2020 TRUE METRIX GLUC OSE TEST STRIP Start: 09-19-2020 TRUEPLUS 33G LANCETS Star t: 09-19-2020 Test blood sugar twice a day [id number] Start: 06-22-2021 TEST BLOOD SUGAR twice a day as directed [id number] Start: 04-19-2021 TRUE METRIX GLUC OSE TEST STRIP Start: 09-19-2020 TRUEPLUS 33G LANCETS Star t: 09-19-2020 use daily as directed [id number] Start: 05-24-2022 use 1 TEST STRIP to TEST BLOOD SUGAR twice a day [id number] Start: 01-08-2023 End: 04-20-2023 use 1 TEST STRIP to TEST BLOOD SUGAR twice a day [id number] Start: 04-20-2023 End: 07-27-2023 TRUE METRIX GLUC OSE TEST STRIP, 0 Refill(s), 130 Start: 09-19-2020 TRUEPLUS 33G LANCETS, 0 Refill(s), 130 Start: 09-19-2020 TEST twice a day as directed [id number] Start: 07-27-2023 Inject 100 each under the skin daily. As directed [id number] Start: 08-13-2023 End: 06-18-2025 use 1 TEST STRIP to TEST BLOOD SUGAR twice a day [id number] Start: 11-05-2023 End: 02-18-2024 use 1 TEST STRIP to TEST BLOOD SUGAR twice a day [id number] Start: 02-18-2024 TRUE METRIX GLUC OSE TEST STRIP, 0 Refill(s), 130 Start: 09-19-2020 TRUEPLUS 33G LANCETS, 0 Refill(s), 130 Start: 09-19-2020 use 1 TEST STRIP to TEST BLOOD SUGAR twice a day [id number] Start: 03-31-2024 TRUE METRIX GLUC OSE TEST STRIP, 0 Refill(s), 130 Start: 09-19-2020 TRUEPLUS 33G LANCETS, 0 Refill(s), 130 Start: 09-19-2020 use 1 TEST STRIP to TEST BLOOD SUGAR twice a day [id number] Start: 10-02-2022 End: 01-08-2023 use 1 TEST STRIP to TEST BLOOD SUGAR twice a day [id number] Start: 11-06-2024 End: 06-16-2025 use 1 TEST STRIP to TEST BLOOD SUGAR twice a day [id number] Start: 06-16-2025 Inject 1 each un enrrique the skin 3 times daily. As directed [id number] Start: 06-18-2025 Goals Date Patient Goal Desired [...] Facility 02-15-2025 Functional Status Room check performed [facility] 02-15-2025 Functional Status Done [facility] 02-15-2025 Functional Status [facility] 02-15-2025 Functional Status 100 [facility] 02-15-2025 Functional Status [facility] 02-15-2025 Functional Status [facility] 02-15-2025 Functional Status Activity Assistance Two assist [facility] 02-15-2025 Functional Status [facility] 02-14-2025 Functional Status bilateral knee high artemio lied/on [facility] 02-14-2025 Functional Status [facility] 02-14-2025 Functional Status [facility] 02-14-2025 Functional Status 7am-7pm [facility] 02-14-2025 Functional Status [facility] 02-14-2025 Functional Status [facility] 02-13-2025 Functional Status [facility] 02-13-2025 Functional Status Hospital bed [facility] 02-12-2025 Functional Status Independent [facility] 02-12-2025 Functional Status Dinner Percent 100 [facility] 02-12-2025 Functional Status [facility] 02-12-2025 Functional Status [facility] 02-11-2025 Functional Status heel(s)s eleva smita, padded oxygen tubing, turn and position system [facility] 02-11-2025 Functional Status Living Situati on Home independently, Lives with significant other [facility] 02-11-2025 Functional Status [facility] 02-11-2025 Functional Status [facility] 02-11-2025 Functional Status Mod I [facility] 02-11-2025 Functional Status [facility] 02-11-2025 Functional Status [facility] 02-10-2025 Functional Status [facility] 02-10-2025 Functional Status Maintained [facility] 06-30-2024 Functional Status Other: 7AM to D/c [facility] 06-30-2024 Functional Status Identified as high risk, Room check performed [facility] 06-30-2024 Functional Status Refused [facility] 06-30-2024 Functional Status [facility] 06-30-2024 Functional Status [facility] 06-29-2024 Functional Status [facility] 06-29-2024 Functional Status [facility] 06-29-2024 Functional Status Refused to be up in chair, Encouraged/reinforced importance of being up in chair [facility] 06-29-2024 Functional Status [facility] 06-29-2024 [facility] 06[facility]29[facility] Functional Status [facility] 06-28-2024 Functional Status [facility] 06-28-2024 Functional Status [facility] 06-28-2024 Functional Status [facility] 06-28-2024 Functional Status [facility] 06-27-2024 Functional Status NPO Status Maintained A [facility] 06-27-2024 Functional Status Hospital bed [facility] 06-26-2024 Functional Status Sequential Com pression Device bilateral knee high removed/off [facility] 06-26-2024 Functional Status [facility] 06-26-2024 Functional Status [facility] 06-26-2024 Functional Status [facility] 06-25-2024 Functional Status Therapy recomm end pt. go to SNF following admission in February, but pt. refused and left AMA (04/29/24) [facility] 06-24-2024 Functional Status [facility] 06-23-2024 Functional Status [facility] 06-23-2024 Functional Status [facility] 06-23-2024 Functional Status [facility] 06-23-2024 Functional Status [facility] 06-23-2024 Functional Status Assistive Equi pment elevated on pillows [facility] 06-22-2024 Functional Status [facility] 06-22-2024 Functional Status [facility] 06-22-2024 Functional Status [facility] 06-21-2024 Functional Status [facility] 06-21-2024 Functional Status Ambulation Encouraged/reinforced importance of ambulation [facility] 06-20-2024 Functional Status heel(s)s elevated [facility] 06-20-2024 Functional Status [facility] 06-18-2024 Functional Status Sensory Deficits None A [facility] 06-06-2024 Functional Status Maximum assistance [facility] 06-06-2024 Functional [facility]ake [facility] 05-15[facility] Functional Status Min A [facility] 05-15-2024 Functional Status [facility] 05-14-2024 Functional Status [facility] 05-14-2024 Functional Status [facility] 05-14-2024 Functional Status [facility] 05-14-2024 Functional Status Foam dressing [facility] 05-14-2024 Functional Status [facility] 05-14-2024 Functional Status [facility] 05-14-2024 Functional Status [facility] 05-13-2024 Functional Status [facility] 05-13-2024 Functional Status [facility] 05-12-2024 Functional Status [facility] 05-11-2024 Functional Status [facility] 05-10-2024 Functional Status Evening Snack Percent 1 00 [facility] 05-10-2024 Functional Status Dinner Percent 100 [facility] 05-09-2024 [facility] 05-09[facility] Functional Status Therapy recomm end pt. go to SNF following admission in February, but pt. refused and left AMA (04/29/24) [facility] 05-08-2024 Functional Status Repositions self [facility] 05-08-2024 [facility] 05-07-2024 Functional Status High Risk Safe ty Identified as high risk, Room located near nursing station [facility] 05-07-2024 Functional [facility] 05-07-[facility] Functional Status Environmental Safety Implemented Adequate room lighting, Bed in low position, Call device within reach, Other: meal tray offered and declined [facility] 05-07-2024 Functional Status [facility] 05-06-2024 Functional Status Room check performed [facility] 05-06-2024 Functional Status Repositioned back [facility] 05-06-2024 Functional Status [facility] 05-06-2024 Functional Status [facility] 05-06-2024 Functional Status Done [facility] 05-06-2024 Functional Status [facility] 05-06-2024 Functional Status [facility] 05-06-2024 Functional Status [facility] 05-06-2024 Functional Status [facility] 05-05-2024 Functional Status [facility] 05-05-2024 Functional Status Patient Identi fied Identification band [facility] 05-05-2024 Functional Status NPO Status Maintained A [facility] 05-05-2024 Functional Status [facility] 05-05-2024 Functional Status [facility] 05-05-2024 Functional Status [facility] 05-04-2024 Functional Status Dinner Percent 100 [facility] 05-04-2024 Functional Status [facility] 05-03-2024 Functional Status [facility] 05-03[facility]2024 [facility] Status [facility] 05-03-[facility] Functional Status 100 [facility] 05-03-2024 Functional Status [facility] 05-02-2024 Functional Status [facility] 05-02-2024 Functional Status [facility] 05-02-2024 Functional Status Mod A [facility] 05-01-2024 Functional Status [facility] 04-30-2024 Functional Status Lunch Percent 70 [facility] 04-30-2024 Functional Status 50 [facility] 04-29-2024 Functional Status [facility] 04-29-2024 Functional Status Therapy recomm end pt. go to SNF following admission in February, but pt. refused and left AMA (04/29/24) [facility] 04-29-2024 Functional Status [facility] 04-28-2024 Functional Status [facility] 04-27-2024 Functional Status [facility] 04-27-2024 Functional Status [facility] 04-26-2024 Functional Status [facility] 04-25-[facility] Functional Status Mobility Donnie tance Level Maximum assistance [facility] 04-24-2024 Functional Status [facility] 04-22-2024 Functional Status Sensory Deficits None A [facility] 04-20-2024 Functional Status Special Call D keisha Unable to use call device [facility] 04-20-2024 Functional Status [facility] 04-20-2024 Functional Status [facility] 04-19-2024 Functional Status Pre-restraint Alternatives Attempted Enhanced observation, Positioning/Turning, Reality orientation, Intervention attempted, not successful [facility] 04-16-2024 Functional Status [facility] 04-06-2024 Functional Status Independent [facility] 04-06-2024 Functional Status Standard Safet y ID band on, Allergy Band on, Call device within reach, Bed in low position, Wheels locked, Upper/Half-Length side-rails up, Bedside Cart Locked, Safety level maintained [facility] 03-11-2024 Functional Status Nurse Safety C hecks q2hrs Performed 7am-3pm [facility] 03-11-2024 Functional Status bilateral knee high rem woo/off [facility] 03-11-2024 Functional Status [facility] 03-11-2024 Functional Status Supervised [facility] 03-11-2024 Functional Status [facility] 03-11-2024 Functional Status Door open, Room check performed [facility] 03-11-2024 Functional Status [facility] 03-10-2024 Functional Status [facility] 03-10-2024 Functional Status [facility] 03-10-2024 Functional Status Single level home [facility] 03-10-2024 Functional Status [facility] 03-10-2024 Functional Status [facility] 03-10-2024 Functional Status [facility] 03-10-2024 Functional Status [facility] 03-09-2024 Functional Status [facility] 03-09-2024 Functional Status Total [facility] 03-08-2024 [facility] 03-08-2024 Functional Status Sensory Deficits None A [facility] 07-07-2023 Functional Status Independent [facility] 07-07-2023 Functional Status Standard Safet y ID band on, Call device within reach, Bed in low position, Wheels locked, Visitor at bedside, Safety level maintained [facility] Mental Status Date Assessment Result Facility 02-15-2025 Mental Status [facility]ed x [facility] 02-14-2025 [facility] 02-14-2025 [facility] 02-13-2025 [facility] 02[facility]13-2025 [facility] 06-30-2024 Mental Status Oriented x [facility] 06-29-2024 [facility] 06-29-2024 [facility] 06-06-2024 Mental Status Oriented [facility] 06-06-2024 [facility] 05-15-2024 Mental Status Oriented x [facility] 05-15-2024 [facility] 05-07-2024 Mental Status Orientation Oriented x 4 [facility] 05-07-2024 Mental Status [facility] 05-07-2024 [facility] Status [facility] 05-06-2024 Mental Status Oriented x [facility] 05-06-2024 [facility] 05-06-2024 [facility] 04-06-2024 Mental Status Orientation Oriented x 4 [facility] 04-06-2024 [facility] Status [facility] 03-11-2024 Mental Status Oriented x [facility] 03-10-2024 Mental Status [facility] 03-10-2024 Mental Status [facility] 03-09-2024 Mental Status [facility] 07-07-2023 Mental Status Orientation Oriented x 4 [facility] 07-07-2023 Mental Status [facility] Clinical Notes 09-02-2021 to 09-07-2025 Telephone Encounter - Shreya OliveraMOIRA - [employer] - 07/13/2025 10:18 AM EDTTelephone Encounter - Shreya Olivera, GUN FITTER - [employer]INE [employer] - 07/13/2025 10:18 AM EDTMnain Hankins - 06/16/2025 1:20 PM EDT Note Date & Type Note Facility 09-07-2025 Note [facility] Medical Records Department [address] [place] [address] History Physical Exam 09/07/25 2244 MR#: [id number] Acct: [id number] Name: GURINDER HAHN Rep #: [id number] : 1975 50 From: David Dumont MD PCP: PRAFUL Dai Status:REG ER Location: ED HPI - General General Date of Admission: 09/07/25 Date of Service: 09/07/25 Chief Complaint: Generalized weakness, missed dialysis HPI Narrative GURINDER HAHN, is a 50 M who presents to the emergency room with chief complaint of generalized weakness. Patient has significant past medical history of diabetes, atrial fibrillation, hypertension and chronic kidney disease for which she is on dialysis. Patient has missed his last 4 dialysis appointments including Sunday of last week and Sunday of today. Patient complains of feeling weak all over. He has mild nausea symptoms but no vomiting or diarrhea or fever and denies chest pain and headache at the present time. Patient has only been on dialysis for the past 1 year. Laboratory studies reveal white blood cell count 11.1, hemoglobin 8.4, hematocrit 27.4, platelets 241, sodium 133, potassium 6.7, chloride 97, bicarb 18, BUN 60, creatinine 8.79, glucose 348, chest x-ray no acute findings. Patient will be admitted to progressive care unit with telemetry and nephrology consult for dialysis. [facility] Medical History Anemia, unspecified Acute kidney failure, unspecified Obstructive and reflux uropathy, unspecified Polyneuropathy, unspecified Claire gangrene Debility Type 2 diabetes mellitus Decubitus ulcer of right buttock, stage 4 Home Medications ???Medication ???Instructions ???Recorded ???Last Taken ???Type apixaban 5 mg tablet (Eliquis) 5 mg PO BID 06/05/24 09/07/25 Hist ory bumetanide 1 mg tablet 1 mg PO BID 06/05/24 Unknown Histo ry gabapentin 300 mg capsule 300 mg PO DAILY 06/05/24 Unknown H istory glimepiride 4 mg tablet 8 mg PO DAILY 06/05/24 Unknown His tory insulin glargine 100 unit/mL (3 30 unit subcut QHS 06/05/24 Unknow n History mL) subcutaneous pen (Lantus Solostar U-100 Insulin) insulin lispro 100 unit/mL 1 sliding scale dose subcut TID DM 06/05/24 Unknown History subcutaneous pen (Humalog KwikPen (U-100) Insulin) metoprolol succinate 100 mg 100 mg PO BID 06/05/24 Unknown His tory tablet,extended release 24 hr omeprazole 40 mg capsule,delayed 40 mg PO BID 06/05/24 Unknown Hist ory release rosuvastatin 10 mg tablet 10 mg PO DAILY 06/05/24 Unknown Hi story acetaminophen 325 mg tablet 650 mg PO Q8H PRN pain 06/18/24 Un known History sodium hypochlorite 0.25 % 1 applic topical BID 06/18/24 Unkn own History solution (Dakin's Solution) Allergy/AdvReac Type Severity Reaction Status Date / Time ampicillin Allergy Unknown PT UNABLE Verified 09/07/25 19:54 TO RESPOND-NEEDS F/U Penicillins Allergy Unknown PT UNABLE Verified 09/07/25 19:54 TO RESPOND-NEEDS F/U lisinopril AdvReac Mild nausea Verified 09/07/25 19:54 Family History no significant family his Social History Smoking Status: Current some day smoker tobacco type: cigarettes ROS Constitutional Constitutional: Reports fatigue and weakness; Denies change in weight, chills or fever(s) Eyes Eyes: Denies blurry vision ENT HEENT: Denies abnormal hearing Cardiovascular Cardiovascular: Denies chest pain Respiratory/Chest Respiratory/Chest: Denies shortness of breath at rest Gastrointestinal Gastrointestinal: Reports nausea; Denies abdominal pain or vomiting Genitourinary Genitourinary: Denies dysuria Musculoskeletal Musculoskeletal: Denies back pain Integumentary Integumentary: Denies dry skin Neurologic Neurologic: Denies abnormal speech Psychiatric Psychiatric: Denies anxiety Vital Signs Vital Signs Vital Signs: 09/07/25 19:52 09/07/25 20:52 09/07/25 20:52 Temperature 98.6 F Temperature Source Oral Pulse Rate 100 96 Respiratory Rate 16 Respiratory Effort Normal Non-Labored Respiratory Pattern Normal Blood Pressure 186/166 H 196/102 H Blood Pressure Mean 172 133 Pulse Ox 96 Oxygen Delivery Method Room Air 09/07/25 21:00 09/07/25 21:13 09/07/25 22:15 Temperature Temperature Source Pulse Rate 97 Respiratory Rate 15 Respiratory Effort Respiratory Pattern Blood Pressure 196/102 H 180/130 H 202/112 H Blood Pressure Mean 133 146 142 Pulse Ox 98 Oxygen Delivery Method Weight Weight: 304 lb 10.861 oz Body Mass Index (BMI) 39.1 Physical Exam Const oriented x3 General Appearance: cooperative and well developed HEENT nor (more content not included)... [facility] 07-13-2025 Telephone encounter Note Reviewed chart. Refill not appropriate, too soon. RX refused [facility] 07-13-2025 Miscellaneous Notes Reviewed chart. Refill not appropriate, too soon. RX refused Acetaminophen sent in 07/09/25 60 tablets 3 refills Hysralazine sent 06/16/25 270 tablets Please refuse both meds documented in this encounter [facility] 07-13-2025 Telephone encounter Note Reviewed chart. Refill not appropriate, too soon. RX refused [facility] 07-13-2025 Miscellaneous Notes Reviewed chart. Refill not appropriate, too soon. RX refused Sent 02/17/25 90 and 1 refill Pt should still have 30 days of medication left Please refuse mediction documented in this encounter [facility] 07-13-2025 Telephone encounter Note Sent 02/17/25 90 and 1 refill Pt should still have 30 days of medication left Please refuse mediction [facility] 07-13-2025 Telephone encounter Note Acetaminophen sent in 07/09/25 60 tablets 3 refills Hysralazine sent 06/16/25 270 tablets Please refuse both meds [facility] 07-09-2025 Telephone encounter Note Prescription Request: Last medication check: 06/16/25 Last physical exam: 2020 Next scheduled appointment: 09/15/25 Last date of refill on this medication 06/12/25 60 tablets no refill [facility] 07-09-2025 Miscellaneous Notes Prescription Request: Last medication check: 06/16/25 Last physical exam: 2020 Next scheduled appointment: 09/15/25 Last date of refill on this medication 7/25/25 60 tablets no refill documented in this encounter [facility] 06-18-2025 Telephone encounter Note Spoke with pharmacy Please send in new RX for the Quik Pen. Pended new rx please verify correct order/dose. Also pended pen tips. [facility] 06-18-2025 Miscellaneous Notes Spoke with pharmacy Please send in new RX for the Quik Pen. Pended new rx please verify correct order/dose. Also pended pen tips. The pen Name of caller: [facility] Contact phone number: [phone] Relationship to Patient: Pharmacy Provider: Practice: [facility] [...] their call: no documented in this encounter [facility] 06-16-2025 Evaluation + Plan note Associated Problem(s): Open wound of skin Recommend continue to monitor. Warm compresses couple times a day to promote drainage. Advised to follow-up if increased swelling or redness or pain occurs. [facility] 06-16-2025 Miscellaneous Notes Associated Problem(s): Open wound [...] 25 mg daily documented in this encounter [facility] 06-16-2025 Evaluation + Plan note Associated Problem(s): Type 2 diabetes mellitus with diabetic polyneuropathy, with long-term current use of insulin (HCC) Poorly controlled. Check hemoglobin A1c today. Restart Lantus at 10 units daily, Humalog 5 units with meals 3 times a day. Send glucose readings every 3 days for titration of insulin [facility] 06-16-2025 Evaluation + Plan note Associated Problem(s): Cardiomyopathy (HCC) Stable. Restart metoprolol XL at 25 mg daily [facility] 06-16-2025 Evaluation + Plan note Associated Problem(s): End-stage renal disease on hemodialysis (HCC) Managed by nephrology. [facility] 06-16-2025 Evaluation + Plan note Associated Problem(s): 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) Control unknown. Check hemoglobin A1c. [facility] 06-16-2025 Evaluation + Plan note Associated Problem(s): Essential hypertension Initial elevated. Resume hydralazine 50 mg 3 times daily, metoprolol 25 mg XL daily. Hold hydralazine on days of dialysis [facility] 06-16-2025 Evaluation + Plan note Associated Problem(s): Hyperlipidemia LDL goal <70 Continue fenofibrate 145 mg daily, rosuvastatin 10 mg daily. [facility] 06-16-2025 Evaluation + Plan note Associated Problem(s): Paroxysmal atrial fibrillation (HCC) Restart Eliquis, start back on the metoprolol XR at 25 mg daily [facility] 06-16-2025 Telephone encounter Note The pen [facility] 06-16-2025 Telephone encounter Note Name of caller: [facility] Contact phone number: [phone] Relationship to Patient: Pharmacy Provider: Practice: [facility] [...] business hours to return their call: no [facility] 06-16-2025 History of Presen t illness Narrative [...] polyneuropathy, with long-term current use of insulin ([facility]) Assessment & Plan: Poorly controlled. Check hemoglobin [...] Normal 2. Chronic renal disease, stage IV (HCC) Assessment & Plan: Managed by nephrology. Orders: - Basic metabolic panel 3. Low hemoglobin - CBC auto differential 4. Cardiomyopathy, unspecified type (HCC) Assessment & Plan: Stable. Restart metoprolol XL [...] 5. Diabetes mellitus with proteinuria (CMS/HCC) (HCC) ([facility]) Assessment & Plan: Control unknown. Check hemoglobin [...] pain occurs. Follow up for 3 month [facility]. 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 Reports his sugars have been in the high 200s and denies any hypoglycemic episodes. It drinking more water and trying to watch what he is eating. M,W,F- dialysis in [place]. Is tired after dialysis Goes Jun 23 [...] was used to authenticate this note. Shreya Florez Bert, MOIRA - MEXICAN FOOD MACHINE TENDER 06/16/2025 5:30 PM [1] Current Outpatient Medications [...] cover report 30 each 1 Continuous Glucose Plating Inspector (FreeStyle Yanni 3 [place]) device Use as directed 1 each 0 [...] for this visit. documented in this encounter [facility] 06-16-2025 Instructions MOIRA Samuels CNP - 06/16/2025 1:20 PM EDT We can make adjustments to insulin every 3 days. Please send in fasting and 2 hour post meal glucose readings every 3 days. documented in this encounter [facility] 06-12-2025 Telephone encounter Note Reviewed chart. Refill appropriate. RX sent. [facility] 06-12-2025 Telephone encounter Note Reviewed chart. Refill appropriate. RX sent. [facility] 06-12-2025 Miscellaneous Notes Reviewed chart. Refill appropriate. RX sent. Prescription Request: Last medication check: 09/22/24 Last physical exam: 2020 Next scheduled appointment: 06/16/25 Last date of refill on this medication 05/21/25 60 tablets no refills documented in this encounter [facility] 06-12-2025 Miscellaneous Notes Reviewed chart. Refill appropriate. RX sent. Prescription Request: Last medication check: 09/22/24 Last physical exam: 2020 Next scheduled appointment: 06/16/25 Last date of refill on this medication 01/29/25 30 tablets 3 refills documented in this encounter [facility] 06-12-2025 Telephone encounter Note Prescription Request: Last medication check: 09/22/24 Last physical exam: 2020 Next scheduled appointment: 06/16/25 Last date of refill on this medication 05/21/25 60 tablets no refills [facility] 06-12-2025 Telephone encounter Note Prescription Request: Last medication check: 09/22/24 Last physical exam: 2020 Next scheduled appointment: 06/16/25 Last date of refill on this medication 01/29/25 30 tablets 3 refills [facility] 05-21-2025 Telephone encounter Note Reviewed chart. Refill appropriate. RX sent. [facility] 05-21-2025 Miscellaneous Notes Reviewed chart. Refill appropriate. RX sent. Prescription Request: Last medication check: 09/22/24 Last physical exam: 01/08/23 Next scheduled appointment: 06/08/25 Last date of refill on this medication 04/16/25 60 tablets no refills documented in this encounter [facility] 05-21-2025 Telephone encounter Note Prescription Request: Last medication check: 09/22/24 Last physical exam: 01/08/23 Next scheduled appointment: 06/08/25 Last date of refill on this medication 04/16/25 60 tablets no refills [facility] 04-28-2025 Telephone encounter Note Prescription Request: Continuous Glucose Sensor (FreeStyle Yanni 3 Sensor) [facility] Last medication check: none Last physical exam: none Next scheduled appointment: 05/13/25 Last date of refill on this medication 11/10/24 ( qty 2 refill 5) [facility] 04-28-2025 Miscellaneous Notes Prescription Request: Continuous Glucose Sensor (FreeStyle Yanni 3 Sensor) mis Last medication check: none Last physical exam: none Next scheduled appointment: 05/13/25 Last date of refill on this medication 11/10/24 ( qty 2 refill 5) documented in this encounter [facility] 04-16-2025 Telephone encounter Note Prescription Request: Last medication check: 09/22/24 Last physical exam: none Next scheduled appointment: 05/13/25 Last date of refill on this medication 02/17/25 60 tablets no refill [facility] 04-16-2025 Miscellaneous Notes Prescription Request: Last medication check: 09/22/24 Last physical exam: none Next scheduled appointment: 05/13/25 Last date of refill on this medication 02/17/25 60 tablets no refill documented in this encounter [facility] 02-15-2025 Discharge summary Date of Service 02/15/2025 [...] use Hospital Course This is a 49-year-old Lebanese-speaking male with a known history of chronic [...] Bactrim, who presented as a transfer from [place] [facility] with lower extremity weakness and worsening [...] versus infectious process. Patient was brought to [facility] admitted to MICU. Dialysis catheter was [...] session to occur tomorrow morning 02/16/2025 at [facility] in [place]. Patient had a delay in his discharge [...] to Physician - Ordered -- 02/10/25 7:48:00 RASHMIT, GABRIELA LOTT MD, Routine, acute renal failure, [...] Up Follow Up with TU DUTTON MD, [facility] When:In 3 weeks Where:[address] [place] [address]- [phone] Additional Information: Schedule appointment as soon as possible Follow Up with CORAL CARY MD When:Within 1-2 days Where:[address] [facility] [place] [address]- [phone] Additional Information: Schedule appointment as soon as possible Follow Up with YAMILET LEE MD When:In 4 weeks Where:[address] [facility] [place] [address]- [phone] Additional Information: Schedule appointment as soon as possible Follow Up with Nikita Garcia When:Within 1-2 days Additional Information: Your hemodialysis schedule is Mondays, Sunday and Fridays at 12pm. You will need to arrive 30 minutes early for your first treatment. First treatment will be SundayFebruary 16. Follow Up with PHOEBE ADAM APRN-ABEBA When:Within 1-2 days Where:[address] [place] [address]- Additional Information: Please call the office to [...] ORALIA SAMUELS MD on 02/15/2025 05:44 PM [facility] 02-15-2025 Note Discharge Instructions Thank you for allowing [facility] to assist you with your healthcare needs. [...] CORAL CARY MD When:Within 1-2 days Where:[address] [facility] [place] [address]- [phone] Additional Information: Schedule appointment as soon as possible Follow Up with YAMILET LEE MD When:In 4 weeks Where:[address] [facility] [place] [address]- [phone] Additional Information: Schedule appointment as soon as possible Follow Up with Nikita Garcia When:Within 1-2 days Additional Information: Your hemodialysis schedule is Mondays, Sunday and Fridays at 12pm. You will need to arrive 30 minutes early for your first treatment. First treatment will be SundayFebruary 16. Follow Up with PHOEBE ADAM When:Within 1-2 days Where:[address] [place] [address]- Additional Information: Please call the office to [...] by mouth Once a day Pickup at [facility]/pharmacy #[id number] New carvedilol (Coreg 25 mg oral tablet) 1 tab(s) by mouth Twice daily with meals Pickup at [facility]/pharmacy #[id number] New cloNIDine (cloNIDine 0.1 mg oral tablet) 1 tab(s) by mouth Two (2) times a day as needed for Blood pressure control Duration: 21 Days take if systolic BP >[address] [facility]/pharmacy #[id number] New hydrALAZINE (hydrALAZINE 50 mg oral tablet) 1 tab(s) by mouth Three (3) times a day Pickup at [facility]/pharmacy #[id number] Unchanged apixaban (Eliquis 5 mg oral tablet) [...] Two (2) times a day Pharmacy Information [facility]/pharmacy #[id number]: [address] [place], [place] [phone] What How Much When Comments Stop Taking [...] care provider. This is important. Medicines Take vkxi-fns-jvslpok and prescription medicines only as told by [...] 11/05/2006 Document Revised: 07/16/2019 Document Reviewed: 07/16/2019 [employer] Patient Education 2020 [employer] Dialysis Dialysis is a procedure that is [...] limit your fluid intake. A diet and meat specialist (dietitian) can help you make a [...] find more information National Kidney Foundation: www.kidney.org [place] Association of Kidney Patients: www.aakp.org [place] Kidney Fund: www.kidneyfund.org Summary During dialysis, wastes, [...] 01/26/2004 Document Revised: 03/23/2020 Document Reviewed: 01/01/2018 [employer] Patient Education 2020 [employer]. Additional Information VACCINATE! IT SAVES LIVES! Members of the community who have not yet received the COVID-19 vaccine and would like to receive it can visit one of [facility] vaccine clinics. There are many vaccine clinic locations within the [facility]. For locations and available times, please visit https://gettheshot.coronavirus.o hio.gov/. It is important to note that some COVID mobile vaccine clinics are held outdoors and may be canceled in rainy or stormy conditions. To learn more about pediatric vaccinations (ages 5-11), we invite you to visit the [facility] webpage. https://www.[facility].org/p ages/5869-Sukqj-Bncdqrsckut-Freq itfwjy-Evwsr-Buwqndzkv.html To learn more about the COVID-19 vaccine, we invite you to visit the CDC website for a list of frequently asked questions.https://www.cdc.gov/co ronavirus/2019-ncov/vaccines/faq .html [employer] Patient Portal Access Instructions: Stay connected with your healthcare team and access your personal medical information anytime with the [employer] Patient Portal. Please follow the directions below to create your [employer] account: 1.Access the email account you provided upon registration to the hospital/physician office.2.Look for an invitation email from [facility].3.Open the email and access the invitation link: Accept Invitation to [facility] [employer].4.Fill in the required nguyen to create your account. To access your account, visit [email or web address]. Click the blue button labeled Access Patient [...] you will allow to register on the [facility] [employer] Patient Portal for access to your information. You can also access the [facility] [employer] Patient Portal on the [facility] [employer] artemio. Simply click on Patient Portal and then log into your account. If you would like to receive a full copy of your medical records, please contact the [facility] Medical Records Department by calling [phone], Sunday through Sunday between 8 a.m. and [...] Call your local pharmacy or go to http://bit.ly/8H0Ie4c to find one close to you.3.Make use of household items: Use cat litter or old coffee grounds to dispose medications if other options are not available. Mix your drugs with these household products, seal them in an airtight container and throw it into the garbage. Call [facility]: [phone] to be sure your drugs can be [...] aware that I should contact my doctor. Patient/Technology Applications Teacher Signature: Date/Time: Relationship to Patient: Witness Name/Signature: Date/Time: [facility] 02-15-2025 Nephrology Progress note Date of Service [...] MD 02/14/2025 13:23 EDT Digitally Signed by AGBRIELA LOTT MD on 02/15/2025 03:02 PM [facility] 03-29-2025 Note Date of Service 02/14/2025 Subjective Patient [...] Continue with hemodialysis, chair time Sunday at [facility]. Outpatient follow-up with cardiology for further [...] the attending physician on service using the 'Slatedon' dictation software. Please excuse any grammatical errors, [...] already has chair time for dialysis at [facility] in Sunday schedule. Digitally Signed by ORALIA SAMUELS MD on 02/14/2025 04:51 PM [facility] 02-14-2025 Note ORIGINAL PROCEDURE: Conversion of temporary to tunneled hemodialysis catheter with fluoroscopy MARINE STRUCTURAL DESIGNER: Ritika Curtis PA-C CLINICAL STATEMENT: Gene MATERIALS: [...] Sign Date: 02/14/2025 2:29:00 PM Ordering Provider: [facility] 02-14-2025 Hospital Discharg e instructions [...] care provider. This is important. Medicines Take ulaq-gbv-wgunvvs and prescription medicines only as told by [...] 11/05/2006 Document Revised: 07/16/2019 Document Reviewed: 07/16/2019 KnowFu Patient Education 2020 [employer]. 02/14/2025 11:54:37 Dialysis Dialysis Dialysis is a [...] limit your fluid intake. A diet and meat specialist (dietitian) can help you make a [...] find more information National Kidney Foundation: www.kidney.org [place]ese Association of Kidney Patients: www.aakp.org [place] Kidney Fund: www.kidneyfund.org Summary During dialysis, wastes, [...] 01/26/2004 Document Revised: 03/23/2020 Document Reviewed: 01/01/2018 Know[employer] Patient Education 2020 [employer]. Follow Up Care 02/09/2025 22:52:31 With:TU DUTTON MD, [facility] Address: [address] [facility] [address] [place] [address] [phone] When:Within 3 Week(s) Comments:Schedule appointment as soon as possible With:CORAL CARY MD Address: [address] [facility] [place] [address] [phone] When:1-2 days Comments:Schedule appointment as soon as possible With:YAMILET LEE MD Address: [address] [place] [address] [address] [facility] [place] [address] [phone] When:Within 4 Week(s) Comments:Schedule appointment as soon as possible With:Nikita Garcia Address:Unknown When:1-2 days Comments:Your hemodialysis schedule is Mondays, Sunday and Fridays at 12pm. You will need to arrive 30 minutes early for your first treatment. First treatment will be SundayFebruary 16. With:PHOEBE ADAM Address: [address] [place] [phone] When:1-2 days Comments:Please call the office to schedule a hospital follow up appointment. [facility] 02-14-2025 Nephrology Progress note Date of Service [...] GABRIELA LOTT MD on 02/14/2025 01:26 PM [facility] 02-13-2025 Note Exam Date Time Procedure Performing Provider Status 02/13/25 3:20 PM IR Tunneled HD DAMARI GASTELUM MD; Auth (Verified) [id number] ORIGINAL PROCEDURE: Conversion of temporary to tunneled hemodialysis catheter with fluoroscopy MARINE STRUCTURAL DESIGNER: Ritika Curtis PA-C CLINICAL STATEMENT: Gene MATERIALS: [...] Sign Date: 02/14/2025 2:29:00 PM Ordering Provider: [facility]03-28-2025 Note IR Procedure Record Summary Primary Physician: Finalized Date/Time: 02/13/25 15:20:07 Pt. Name: GURINDER HAHN D.O.B./Sex: 1975 Male Med Rec #: [id number] Physician: VIRIDIANA WILLIAM MD Financial #: [id number] Pt. Type: I Room/Bed: [facility]/ Admit/Disch: 02/10/25 01:15:00 - Institution: Allergies identified [...] Case Attendee Elena Nava CHRISTOPHER MD BUCHINO, DAMARI SOLIS RN Role Performed Procedure Nurse Resident 4 [...] - IR Entry 1 Case Information Room IR 16 Case Level IR Level 2 [...] Out Gustabo BERG Rad Tech Confirm/obtain preop NevaehSamia Megan antibiotic order., R Elijah Brenner, Alcohol based prep dry Elena Huerta RN [...] 1 Implant/Explant Implant Implant Description CATH HEMO-FLOW [id number] Wasted? No Lot Number [id number] Oil Well Service Unit Operator medCOMP Size 14.5F x 28cm Expiration Date [...] Radiology - Action Plan Outcomes Met? Yes Wood Milling Machine Tender Elena Nava Completing public health dietitian Plan Last Modified By: Veronica Stratton 02/13/25 14:28:14 Case Comments Finalized By: Veronica Stratton Document Signatures Signed By: Veronica Stratton 02/13/25 15:20 [id number] Nephrology Progress note Date of Service 02/13/2025 [...] to require dialysis. Maintain MWF schedule. next iHD Sunday transition to prednisone 40 mg for 10 [...] CORAL CARY MD on 02/13/2025 01:27 PM [id number] Note Date of Service 02/13/2025 Chief Complaint [...] Bactrim, who presented as a transfer from [facility] with lower extremity weakness and worsening [...] versus infectious process. Patient was brought to [facility] admitted to MICU.Dialysis catheter was placed [...] ESTER PARNELL MD on 02/13/2025 09:08 AM [facility] [id number] NoteORIGINAL PROCEDURE: Temporary hemodialysis catheter placement with fluoroscopy and ultrasound MARINE STRUCTURAL DESIGNER: Ritika Curtis PA-C CLINICAL STATEMENT: GENE, Hyperkalemia [...] Sign Date: 02/13/2025 8:57:30 AM Ordering Provider: [facility] [id number] Evaluation + Plan noteExtracted from: Title:Consult Note [...] CT Pelvis w/ IV Contrast Only 06/27/24 [facility] 03-27-2025 Urology Progress note Date of Service [...] TU DUTTON MD on 02/12/2025 01:11 PM [facility] [id number] History and physical note Date of Service [...] Bactrim, who presented as a transfer from [facility] with lower extremity weakness and worsening [...] versus infectious process. Patient was brought to [facility] admitted to MICU.Dialysis catheter was placed [...] ESTER PARNELL MD on 02/12/2025 09:56 AM [facility] [id number] Note Date of Service 02/11/2025 Chief Complaint [...] BOB JONES MD on 02/11/2025 05:17 PM [facility] [id number] Note. 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 This appeared to [...] Procedure/Surgical History Testicle: 1992 Amputation Medications Inpatient Dextrose, 25 gram(s)= 50 [...] TU DUTTON MD on 02/10/2025 06:48 PM [facility] [id number] Note IR Procedure Record Summary Primary Physician: RITIKA CURTIS PA-C Finalized Date/Time: 02/10/25 12:15:26 Pt. Name: LINDA HAHNRAUL Luna/Sex: 1975 Male Med Rec #: [id number] Physician: VIRIDIANA WILLIAM MD Financial #: [id number] Pt. Type: I Room/Bed: 3717/A Admit/Disch: 02/10/25 01:15:00 - Institution: Allergies identified [...] Tech Role Performed Primary Surgeon Procedure Nurse Channel Marketing Program Manager Details Time In 02/10/25 12:05:00 02/10/25 [...] - IR Entry 1 Case Information Room IR 16 Case Level IR Level 2 [...] and site marked, Present for Time Out MORENA, Virginia Valadez RN, Relevant images and Veronica Stratton, results are properly Anny Gracia R Rad labeled and Mame Nova Chandra appropriately [...] Radiology - Action Plan Outcomes Met? Yes Wood Milling Machine Tender Virginia Valadez RN Completing Procedure Plan Last Modified By: Virginia Valadez RN 02/10/25 12:10:40 Case Comments Finalized By: Virginia Valadez RN Document Signatures Signed By: Virginia Valadez RN 02/10/25 12:15 [facility] [id number] Note* Exam Date Time Procedure Performing Provider Status 02/10/25 12:14 PM IR Temporary Dialysis Catheter DAMARI CAO MD; Auth (Verified) [id number] ORIGINAL PROCEDURE: Temporary hemodialysis catheter placement with fluoroscopy and ultrasound MARINE STRUCTURAL DESIGNER: Ritika Curtis PA-C CLINICAL STATEMENT: GENE, Hyperkalemia [...] Sign Date: 02/13/2025 8:57:30 AM Ordering Provider: [facility]03-25-2025 Nephrology Consult note Date of Service 02/10/2025 Reason for Consultation GENE, hyperkalemia Referring Physician MICU team History of Present Illness This is a 49 years old male with history of obesity, hypertension, diabetes mellitus type2, HFrEF EF 40-45%, for near gangrene s/p debridement, prior gluteal abscess wound, CKD 3B b/l cr 1.9 2.0 presented to the [facility] ER with significant weakness, worsening lower extremity edema. In the ED he was noted to have hypertension blood pressure 171/93 satting 96% on room air, creatinine of6.19, bicarb 20, potassium 7.9, elevated proBNP. He was given IV Lasix high-dose and hyperkalemia cocktail and was transferred to the [facility] MICU. Nephrology is consulted for management of acute renal failure and critical hyperkalemia. Patient has multiple comorbidities [facility] was seen by our team during prior [...] Procedure/Surgical History Testicle: 1992 Amputation Medications Inpatient Dextrose, 25 gram(s)= 50 [...] CORAL CARY MD on 02/10/2025 10:05 AM [id number] Note* Exam Date Time Procedure Performing Provider Status 02/10/25 6:37 AM XR Chest 1 View LINA ARMANDO MD; Aut h (Verified) [id number] ORIGINAL EXAMINATION: ONE XRAY VIEW OF THE [...] 02/10/2025 6:48:10 AM Ordering Provider: MARTÍN KEY [facility] [id number] Note* Exam Date Time Procedure Performing Provider Status 02/10/25 5:25 AM US Renal LINA ARMANDO MD; Auth ( Verified) [id number] ORIGINAL EXAMINATION: ULTRASOUND OF THE KIDNEYS 02/10/2025 [...] Lina Armando MD Preliminary Report By: Eliana Josefa Electronically signed By Lina Armando MD Dictated Date: 02/10/2025 6:16:48 AM Prelim Date: 02/10/2025 6:22:11 AM Sign Date: 02/10/2025 6:52:46 AM Ordering Provider: MARTÍN KEY [facility] [id number] Note* Exam Date Time Procedure Performing Provider Status 02/10/25 2:37 AM Electrocardiogram - EKG - CV NGOC MIN MD; Auth (Verified) ECG Final Report Sinus tachycardia Right bundle branch block Electronic Signature: NGOC MIN MD 02/10/2025 15:49:39 [facility] [id number] Telephone encounter Note* Telephone Encounter - MOIRA Samuels CNP - 02/05/2025 8:34 AM EDT Noted. Agree with disposition. [id number] Miscellaneous Notes* Telephone Encounter - MOIRA Samuels CNP - 02/05/2025 8:34 AM EDT Noted. Agree with disposition. * Telephone Encounter - Marielos Lu RN - 02/05/2025 7:39 AM EDT S: Patient spoke with [facility] nurse regarding trouble breathing at night. B: [...] or WORSE than normal Protocols used: Breathing Orvwyvrgeh-CTNTW-CX documented in this [facility] & [facility] HospitalBcurhz22-80-1686 Telephone encounter Note* Telephone Encounter - Marielos Lu RN - 02/05/2025 7:39 AM EDT S: Patient spoke with [facility] nurse regarding trouble breathing at night. 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03-10-2025 Telephone encounter Note* Telephone Encounter - Christina Shaffer - 01/26/2025 10:29 AM EDT Spoke to pts about upcoming PAT 02/19/2025 and Surgery 02/26/2025 at [facility] Doctor: Prince HERNÁNDEZ (arrive 15 min early): [...] counter vitamins 3 days prior to surgery [facility] [id number] Telephone encounter Note* Telephone Encounter - Christina Shaffer - 01/26/2025 9:19 AM EDT Lvm to discuss upcoming PAT and surgery as well as instructions [facility] [id number] NoteOR Request for surgery PROCEDURE: Cystoscopy, retrograde urethrogram, cystogram, bilateral retrograde pyelograms DIAGNOSIS: suprapubic drainage, 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 FACILITY: [facility] DETAILS: OUTPT ANESTHESIA: GENERAL TIME REQUESTED: 1 hr DATE REQUESTED: ROUTINE FEBRUARY SURGERY ORDERS: will be placed Alex Morrison POST OP FOLLOW UP: 2 WK REP REQUESTED: No SPECIAL NEEDS: NONE PAT: yes MEDICAL CLEARANCE: [facility]03-06-2025 Telephone encounter Note * Telephone Encounter - Jose Morrison MD - 01/22/2025 4:51 PM EST OR Request for surgery PROCEDURE: Cystoscopy, retrograde urethrogram, cystogram, bilateral retrograde pyelograms DIAGNOSIS: suprapubic drainage, 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 FACILITY: [facility] DETAILS: OUTPT ANESTHESIA: GENERAL TIME REQUESTED: 1 hr DATE REQUESTED: ROUTINE FEBRUARY SURGERY ORDERS: will be placed Alex Morrison POST OP FOLLOW UP: 2 WK REP REQUESTED: No SPECIAL NEEDS: NONE PAT: yes MEDICAL CLEARANCE: Yes [facility] [employer] Work Phone: 1(429) 585-454203-06-2025 History of Present illness Narrative* Ramon Ellis [...] gangrene Unable to locate operative reports from [facility] to determine exactly what was done [...] Nephro referral 09/17/24 progress note wound care ([place] [facility]) - reported Claire's back in March 2024 requiring multiple debridement and ICU stay, reported to have had a catheter at rehab but removed it himself, started to notice leakage of urine from somewhere besides penis 04/16/24 presented to [facility] - septic shock 2/2 Claire's gangrene, [...] Disp: 100 each, Rfl: 2 Continuous Glucose Plating Inspector (FreeStyle Yanni 3 [place]) device, Use as directed, Disp: 1 each, [...] MD 01/22/25 4:50 PM documented in this encounterSSuburban [facility] Hospital & [facility] [id number] NoteAngie called in to reschedule the patient appt. 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 Appt was already cancelled through [employer]. No rescheduling at this time. * Telephone Encounter - Maira Braden - 12/24/2024 10:35 AM EST [facility] called in stating she needs to cancel the patient's appt today 12/24/24 11:50 AM Monica w/Karley. R/S now 12/30/24 9:40 AM w/DR Morrison in [place]. * Telephone Encounter - Gracie Arzate - 12/16/2024 11:27 AM EST Pts gf called in to r/s appt on 12/18. He is now scheduled 12/24/[address] Morrison in [place] * Telephone Encounter - Maira Braden - 12/15/2024 9:54 AM EST Girlfriend of patient called in asking to schedule another appointment for a second opinion - Offered 12/16/24 10:30 AM Monica Morrison- 2nd opinion (seen 1/21/25) referral for Claire's gangrene - Bladder to [...] NO COVID TESTING: NO documented in this [facility]02-17-2025 Telephone encounter Note* Telephone Encounter - MOIRA Samuels CNP - 01/05/2025 8:19 AM EST Reviewed chart. Refill not appropriate, too soon. RX refused [facility] EastCjgvtk79-57-0904 Miscellaneous Notes* Telephone Encounter - MOIRA Samuels CNP - 01/05/2025 8:19 AM EST Reviewed chart. Refill not appropriate, too soon. RX refused * Telephone Encounter - Yadira Uribe MA - 01/05/2025 8:14 AM EST Prescription Request: Last medication check: 09/22/24 Last physical exam: none Next scheduled appointment: 02/02/25 CSA 09/22/24 Last date of refill on this medication 12/29/24 documented in this [place] [address]-17-2025 Telephone encounter Note* Telephone Encounter - Yadira Uribe MA - 01/05/2025 8:14 AM EST Prescription Request: Last medication check: 09/22/24 Last physical exam: none Next scheduled appointment: 02/02/25 CSA 09/22/24 Last date of refill on this medication 12/29/24 [facility] [id number] Telephone encounter Note* Telephone Encounter - Maira Braden - 12/30/2024 8:07 AM EST [facility] called in to cancel 12/30/24 appt in [place] w/DR Morrison states the patient isn't feeling well. Appt was already cancelled through [employer]. No rescheduling at this time. [facility] Aslwes09-44-0294 Miscellaneous Notes* Telephone Encounter - Maira Braden - 12/30/2024 8:07 AM EST [facility] called in to cancel 12/30/24 appt in [place] w/DR Morrison states the patient isn't feeling well. Appt was already cancelled through [employer]. No rescheduling at this time. * Telephone Encounter - Maira Braden - 12/24/2024 10:35 AM EST [facility] called in stating she needs to cancel the patient's appt today 12/24/24 11:50 AM Monica w/Karley. R/S now 12/30/24 9:40 AM w/DR Morrison in [place]. * Telephone Encounter - Gracie Arzate - 12/16/2024 11:27 AM EST Pts gf called in to r/s appt on 12/18. He is now scheduled 12/24/[address] Morrison in [place] * Telephone Encounter - Maira Braden - [...] NO COVID TESTING: NO documented in this [facility]02-05-2025 Telephone encounter Note* Telephone Encounter - Maira Braden - 12/24/2024 10:35 AM EST [facility] called in stating she needs to cancel the patient's appt today 12/24/24 11:50 AM Monica [place]. R/S now 12/30/24 9:40 AM marquise/DR Morrison in [place]. [facility] EastLowpbs01-42-1870 Miscellaneous Notes* Telephone Encounter - Maira Braden - 12/24/2024 10:35 AM EST [facility] called in stating she needs to cancel the patient's appt today 12/24/24 11:50 AM Monica [place]. R/S now 12/30/24 9:40 AM w/DR Morrison in [place]. * Telephone Encounter - Grcaie Arzate - 12/16/2024 11:27 AM EST Pts gf called in to r/s appt on 12/18. He is now scheduled 12/24/[address] Morrison in [place] * Telephone Encounter - Maira Braden - [...] NO COVID TESTING: NO documented in this encounterSSub[facility] Hospital & [facility] HospitalKpduoa80-07-6655 Telephone encounter Note* Telephone Encounter - Gracie Arzate - 12/16/2024 11:27 AM EST Pts gf called in to r/s appt on 12/18. He is now scheduled 12/24/[address] Morrison in [place] [facility] EastTrisqo82-84-2753 Miscellaneous Notes* Telephone Encounter - Gracie Arzate - 12/16/2024 11:27 AM EST Pts gf called in to r/s appt on 12/18. He is now scheduled 12/24/[address] Morrison in [place] * Telephone Encounter - Maira Braden - [...] NO COVID TESTING: NO documented in this 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01-21-2025 NoteSURGERY SCHEDULING PROCEDURE: : Cystoscopy, retrograde urethrogram, cystogram, retrograde pyelogram DIAGNOSIS: Vesicocutaneous fistula FACILITY: Any DETAILS: OUTPT ANESTHESIA: GENERAL TIME REQUESTED: 1 HR DATE REQUESTED: ROUTINE POST OP FOLLOW UP: 2 WK REP REQUESTED: MEDICAL CLEARANCE: CONFERENCE: NO COVID TESTING: [facility]01-21-2025 Telephone encounter Note* Telephone Encounter - Garrick Velasquez MD - 12/09/2024 6:02 PM EST SURGERY SCHEDULING PROCEDURE: : Cystoscopy, retrograde urethrogram, cystogram, retrograde pyelogram DIAGNOSIS: Vesicocutaneous fistula FACILITY: Any DETAILS: OUTPT ANESTHESIA: GENERAL TIME REQUESTED: 1 HR DATE REQUESTED: ROUTINE POST OP FOLLOW UP: 2 WK REP REQUESTED: MEDICAL CLEARANCE: CONFERENCE: NO COVID TESTING: NO [place] Phone: 1(373) 158-619201-21-2025 History of Present illness Narrative* Garrick Velasquez [...] with Claire's gangrene. He was seen at [facility] in [place] and was transferred to [facility] in [place] and underwent extensive surgical debridement for Claire's [...] Hypertension Necrotizing fasciitis (HCC) 09/22/2024 Osteoarthritis Sepsis ([facility]) Sepsis, unspecified organism (HCC) 06/30/2024 Type 2 [...] 08/13/23 Yes MOIRA Peralta CNP Continuous Glucose Plating Inspector (FreeStyle Yanni 3 [place]) device Use as directed 09/22/24 Yes MOIRA Peralta CNP Continuous Glucose Sensor (FreeStyle Ynani 3 Sensor) misc every 14 (fourteen) days. 11/10/24 Yes ShreyaMOIRA Yañez CNP gabapentin (Neurontin) 300 MG capsule Take 1 capsule (300 mg) by mouth Nightly. 11/21/24 Yes MOIRA Peralta CNP glimepiride (Amaryl) 4 MG tablet Take 2 tablets (8 mg) by mouth daily (with breakfast). 10/24/24 YesMOIRA Peralta CNP glucose blood (True Metrix Blood Glucose Test) test strip use 1 TEST STRIP to TEST BLOOD SUGAR twice a day 11/06/24 Yes Artie Jackson MD Lantus SoloStar 100 UNIT/ML pen inject 16 units [...] declined Stress: No Stress Concern Present (09/20/2024) [employer] - Occupational Stress Questionnaire Feeling of Stress : Not at all Social Connections: Unknown (09/20/2024) Social Connection and Isolation Panel [NHANES] Frequency of Communication with Friends and Family: Never Frequency of Social Gatherings with Friends and Family: Patient declined Attends Yarsanism Services: Patient declined Active Member of Clubs [...] MD 12/09/24 5:57 PM documented in this encounterSSuburban [facility] Hospital & Brentwood HospitalAtvrev67-40-6973 Telephone encounter Note* Telephone Encounter - Gracie Arzate - 11/24/2024 1:24 PM EST Pts so called in to r/s appt. He is now scheduled 12/09/24 [facility] EastPixhhe94-24-8439 Miscellaneous Notes* Telephone Encounter - Gracie Arzate - 11/24/2024 1:24 PM EST Pts so called in to r/s appt. He is now scheduled 12/09/24 * Telephone Encounter - Onelia Zuniga - 10/21/2024 1:49 PM EST Patient confirmed Patient appointment on Sunday11/25/2024. * Telephone Encounter - Missy Pereira - 10/21/2024 12:06 PM EST Preferred contact number: [phone] Reason for Visit: New Patient 10-21-[address] Velasquez cancelled due to transportation issues. Please call to reschedule accordingly Urgency of Appointment: New Patient Medications in need of refill: NA documented in this encounterSSuburban Community Hospital & Brentwood HospitalXgbgag22-74-3584 Telephone encounter Note* Telephone Encounter - MOIRA Samuels CNP - 11/20/2024 8:26 AM EST Reviewed chart. Refill appropriate. RX sent. [facility] EastEkcpsb85-45-5155 Miscellaneous Notes* Telephone Encounter - MOIRA Samuels CNP - 11/20/2024 8:26 AM EST Reviewed chart. Refill appropriate. RX sent. * Telephone Encounter - Miguelina Ashford MA - 11/20/2024 8:18 AM EST Prescription Request: Last medication check: 09/22/24 Last physical exam: none Next scheduled appointment: none Last date of refill on this medication 10/29/24 30 and no refill documented in this [facility]01-02-2025 Telephone encounter Note* Telephone Encounter - Miguelina Ashford MA - 11/20/2024 8:18 AM EST Prescription Request: Last medication check: 09/22/24 Last physical exam: none Next scheduled appointment: none Last date of refill on this medication 10/29/24 30 and no refill [facility] EastRsokgy06-03-4019 Telephone encounter Note* Telephone Encounter - Onelia Zuniga - 10/21/2024 1:49 PM EST Patient confirmed Patient appointment on Sunday11/25/2024. [facility] EastQmgczi09-02-0408 Telephone encounter Note* Telephone Encounter - Missy Pereira - 10/21/2024 12:06 PM EST Preferred contact number: [phone] Reason for Visit: New Patient 10-21-[address] Velasquez cancelled due to transportation issues. Please call to reschedule accordingly Urgency of Appointment: New Patient Medications in need of refill: NA [facility] EastBnkeoc14-78-6448 History of Present illness Narrative* Phoebe Adam APRN - [facility]LI - 09/22/2024 1:40 PM EST Images from [...] was 7.6% on 07/14/24. Was in the senior care for about 4-5 months and has been [...] following up with wound care center in [place] every 2 weeks and has been packing [...] declined Stress: No Stress Concern Present (09/20/2024) [employer] - Occupational Stress Questionnaire Feeling of Stress : Not at all Social Connections: Unknown (09/20/2024) Social Connection and Isolation Panel [NHANES] Frequency of Communication with Friends and Family: Never Frequency of Social Gatherings with Friends and Family: Patient declined Attends Yarsanism Services: Patient declined Active Member of Clubs [...] Screening 09/22/2025 (Originally 1975) COVID-19 Vaccine ( - 2023- season) 2025 (Originally 07/20/2024) Creatinine Level 10/16/2024 [...] Plan: 1. Diabetes mellitus with proteinuria (CMS/HCC) ([facility]) ([facility]) - Comprehensive metabolic panel - Microalbumin / creatinine urine ratio - Hemoglobin A1c - CBC - Diabetes Foot Exam - External referral to Nephrology - Continuous Glucose Plating Inspector (FreeStyle Yanni 3 [place]) device; Use as directed, Normal - Continuous [...] polyneuropathy, with long-term current use of insulin ([facility]) - Comprehensive metabolic panel - Microalbumin / creatinine urine ratio - Hemoglobin A1c - CBC - Diabetes Foot Exam - Continuous Glucose Plating Inspector (FreeStyle Yanni 3 [place]) device; Use as directed, Normal - Continuous [...] today. 3. Encounter for diabetic foot exam ([facility]) - Diabetes Foot Exam 4. Paroxysmal atrial fibrillation ([facility]) - Comprehensive metabolic panel - CBC - Stable. Continue Eliquis and Metoprolol as prescribed. 5. Cardiomyopathy, unspecified type ([facility]) - Lipid panel - Comprehensive metabolic panel - CBC - Stable. Continue Eliquis and Metoprolol as prescribed. - Will obtain echocardiogram results for review. 6. Chronic renal disease, stage IV ([facility]) - Comprehensive metabolic panel - Microalbumin / [...] every evening) 3 mL 1 Continuous Glucose Plating Inspector (FreeStyle Yanni 3 [place]) device Use as directed 1 each 0 [...] by last name and . documented in [facility]11-04-2024 Instructions* Patient Instructions* MOIRA Peralta CNP - 09/22/2024 1:40 PM EST Please obtain echocardiogram result from [facility]. documented in this [facility]10-24-2024 Telephone encounter Note* Telephone Encounter - MOIRA Samuels CNP - 09/11/2024 7:41 AM EDT Reviewed chart. Refill appropriate. RX sent. [facility] EastTebfel12-86-9017 Miscellaneous Notes* Telephone Encounter - MOIRA Samuels CNP - 09/11/2024 7:41 AM EDT Reviewed chart. Refill appropriate. RX sent. * Telephone Encounter - Miguelina Ashford MA - 09/11/2024 7:10 AM EDT Prescription Request: Last medication check: 04/05/23 Last physical exam: none Next scheduled appointment: 09/22/24 Last date of refill on this medication 08/11/24 30 and no refill documented in this [facility]10-24-2024 Telephone encounter Note* Telephone Encounter - Miguelina Ashford MA - 09/11/2024 7:10 AM EDT Prescription Request: Last medication check: 04/05/23 Last physical exam: none Next scheduled appointment: 09/22/24 Last date of refill on this medication 08/11/24 30 and no refill [facility] EastWuyqua37-41-0769 Telephone encounter Note* Telephone Encounter - MOIRA Samuels CNP - 08/11/2024 10:01 AM EDT Refill sent for #30 NEEDS to come in for appt that is scheduled in 08/2024. [facility] EastPqseto27-91-6045 Miscellaneous Notes* Telephone Encounter - MOIRA Samuels [...] on this medication 02/05/24 documented in this encounterSSuburban [facility] Hospital & Brentwood HospitalIexfgk11-14-8214 Telephone encounter Note* Telephone Encounter - Miguelina Ashford MA - 08/11/2024 9:37 AM EDT Prescription Request: Last medication check: 04/05/23 Last physical exam: 2020 Next scheduled appointment: 08/27/24 Last date of refill on this medication 02/05/24 [facility] EastXskvzn21-16-6371 Note Discharge Instructions Thank you for allowing [facility] to assist you with your healthcare needs. The following is importantdischarge information regarding your hospital visit. Your Care Team PHOEBE ADAM APRN-[employer] OFFICE INSTALLER Your Diagnosis Choledocholithiasis Dilation of common bile [...] OV 07/22/2024 11:00 AM EDT SAMRA BURROWS GUN FITTER-[employer]INE TENDER [facility] Confirmed Follow Up Appointments Follow Up with BIENVENIDO FAIRCHILD DO, Surgery Where:[address] [facility] [address] [place] [address]- [phone] Additional Information: Call for appointment Follow Up with PHOEBE ADAM APRN-[employer] OFFICE INSTALLER Where:[address] [place] [address]- Additional Information: call for apt Follow Up with SON STEEL BA, MD, Infectious Disease, Infectious Disease Group Where:[facility] [address] [place] [address]- [phone] Additional Information: call for apt Follow Up with JOSE LAYTON MD Where:[address] [facility], [place] [address]- [phone] Additional Information: call for apt, to schedule ERCP (scope procedure) Follow Up with rios Orr [phone] The Following Activity and Diet Have Been [...] 12 hours Duration: 14 Days Pickup at [id number] New linezolid (Zyvox 600 mg oral tablet) 1 tab(s) by mouth Two (2) times a day Duration: 14 Days Pickup at [facility][id number] Changed insulin glargine (Lantus 100 units/ mL10 [...] times a day Pharmacy Information [id number]: [address], [place] [phone] Please take this list to your next [...] Follow these instructions at home: Medicines Take imcb-slf-ukcqqik and prescription medicines only as told by [...] 08/03/2004 Document Revised: 06/13/2019 Document Reviewed: 06/13/2019 [employer] Patient Education 2020 [employer] Additional Information VACCINATE! IT SAVES LIVES! Members of the community who have not yet received the COVID-19 vaccine and would like to receive it can visit one of [facility] vaccine clinics. There are many vaccine clinic locations within the [facility]. For locations and available times, please visit [email or web address].[place].gov/. It is important to note that some COVID mobile vaccine clinics are held outdoors and may be canceled in rainy or stormy conditions. To learn more about pediatric vaccinations (ages 5-11), we invite you to visit the [facility] webpage. https://www.[email or web address].org/pages/7931-Schmd-Fkificpwmcz-Zstuhztiyr-Trfnz-Odh stions.htmlTo learn more about the COVID-19 vaccine, we invite you to visit the CDC website for a list of frequently asked questions.https://www.cdc.gov/coronavirus/2019-ncov/vaccines/faq.html [facility] Patient Portal Access Instructions: Stay connected with your healthcare team and access your personal medical information anytime with the [facility] Patient Portal. Please follow the directions below to create your [facility] account: 1.Access the email account you provided upon registration to the hospital/physician office.2.Look for an invitation email from [facility].3.Open the email and access the invitation link: AcceptInvitation to [facility].4.Fill in the required nguyen to create your account. To access your account, visit Kickstarter/Lifestyle AirOneChart. Click the blue button labeled Access Patient [...] who you will allowto register on the [facility] Patient Portal for access to your information. You can also access the [employer] Patient Portal on the [employer] Anywhere artemio. Simply click on Patient Portal and then log into your account. If you would like to receive a full copy of your medical records, please contact the [facility] Medical Records Department by calling [phone], Sunday through Sunday between 8 a.m. and [...] Call your local pharmacy or go to [email or web address]/[email or web address] to find one close to you.3.Make use of household items: Use cat litter or old coffee grounds to dispose medications if other options arenot available. Mix your drugs with these household products, seal them in an airtight container andthrow it into the garbage. Call [facility]: [phone] to be sure your drugs can be [...] been reviewed and explained to me and IJOVANI CHRISTOPHER P understand my current condition and have read and understand these discharge instructions. I have received a written copy of the plan/instructions. If I have questions, I am aware that I should contact my doctor. Patient/Technology Applications Teacher Signature: Date/Time: Relationship to Patient: Witness Name/Signature: Date/Time: [facility]0359 Hospital Discharge instructions Patient Education 06/30/2024 14:39:45 [...] Follow these instructions at home: Medicines Take jiud-sma-jagwxcd and prescription medicines only as told by [...] 08/03/2004 Document Revised: 06/13/2019 Document Reviewed: 06/13/2019 KnowFu Patient Education 2020 UtiliData. Follow Up Care 06/18/2024 12:13:04 With:BIENVENIDO FAIRCHILD DO, Surgery Address: [address] [phone] When: Unknown Comments:Call for appointment With:PHOEBE ADAM APRN-[employer] CENTRAL OFFICE INSTALLER Address: [address] [place] [address]- When: Unknown Comments:call for apt With:SON STEEL BA, MD, Infectious Disease, Infectious Disease Group Address: [facility] [address] [place] [phone] When: Unknown Comments:call for apt With:JOSE LAYTON MD Address: [address] [facility], [place] [phone] When: Unknown Comments:call for apt, to schedule ERCP (scope procedure) With:rios Orr [phone] Address: When: Unknown [facility] 08-12-2024 Note Discharge Instructions Thank you for allowing [facility] to assist you with your healthcare needs. The following is importantdischarge information regarding your hospital visit. Your Care Team PHOEBE ADAM APRN-[employer] CENTRAL OFFICE INSTALLER Your Diagnosis Choledocholithiasis Dilation of common bile [...] Contact Information StatusSurgery 07/01/2024 02:00 PM EDT Ef[place] OR [phone] Confirmed URO OV 07/22/2024 11:00 AM SAMRA BLAS APRN-MEXICAN FOOD MACHINE TENDER [facility] Confirmed Follow Up Appointments Follow Up with BIENVENIDO FAIRCHILD DO, Surgery Where:[address] [facility] [address] [place] [address] [phone] Additional Information: Call for appointment Follow Up with PHOEBE ADAM APRN-[employer] CENTRAL OFFICE INSTALLER Where:[address] [place] [address]- Additional Information: call for apt Follow Up with SON STEEL BA, MD, Infectious Disease, Infectious Disease Group Where:[facility] [address] [place] [address]- [phone] Additional Information: call for apt Follow Up with JOSE LAYTON MD Where:[address] [facility], [place] [phone] Additional Information: call for apt, to schedule ERCP (scope procedure) Follow Up with Omari Wong, skilled [phone] The Following Activity and Diet Have Been [...] 12 hours Duration: 14 Days Pickup at [facility] New linezolid (Zyvox 600 mg oral tablet) 1 tab(s) by mouth Two (2) times a day Duration: 14 Days Pickup at [facility]19 Changed insulin glargine (Lantus 100 units/ mL10 [...] times a day Pharmacy Information [id number]: [address] [place] [address] [phone] Please take this list to your next [...] Follow these instructions at home: Medicines Take scue-cqj-ziemvti and prescription medicines only as told by [...] 08/03/2004 Document Revised: 06/13/2019 Document Reviewed: 06/13/2019 Elsevier Patient Education 2020 UtiliData. Additional Information VACCINATE! IT SAVES LIVES! Members of the community who have not yet received the COVID-19 vaccine and would like to receive it can visit one of [facility] vaccine clinics. There are many vaccine clinic locations within the [facility]. For locations and available times, please visit https://gettheshot.coronavirus.[place].gov/. It is important to note that some COVID mobile vaccine clinics are held outdoors and may be canceled in rainy or stormy conditions. To learn more about pediatric vaccinations (ages 5-11), we invite you to visit the [employer] [facility] webpage. https://www.FanXchanges.org/pages/7283-Asibv-Cgisltsypye-Jevjzncjza-Bfocj-Sty stions.htmlTo learn more about the COVID-19 vaccine, we invite you to visit the CDC website for a list of frequently asked questions.https://www.cdc.gov/coronavirus/2019-ncov/vaccines/faq.html [facility] Patient Portal Access Instructions: Stay connected with your healthcare team and access your personal medical information anytime with the [facility] Patient Portal. Please follow the directions below to create your [facility] account: 1.Access the email account you provided upon registration to the hospital/physician office.2.Look for an invitation email from [facility].3.Open the email and access the invitation link: AcceptInvitation to [facility].4.Fill in the required nguyen to create your account. To access your account, visit [email or web address]. Click the blue button labeled Access Patient [...] who you will allowto register on the [facility] [employer] Patient Portal for access to your information. You can also access the [facility] [employer] Patient Portal on the [facility] Anywhere artemio. Simply click on Patient Portal and then log into your account. If you would like to receive a full copy of your medical records, please contact the [facility] Medical Records Department by calling [phone], Sunday through Sunday between 8 a.m. and [...] Call your local pharmacy or go to [email or web address] to find one close to you.3.Make use of household items: Use cat litter or old coffee grounds to dispose medications if other options arenot available. Mix your drugs with these household products, seal them in an airtight container andthrow it into the garbage. Call [facility]: [phone] to be sure your drugs can be [...] aware that I should contact my doctor. Patient/Technology Applications Teacher Signature: Date/Time: Relationship to Patient: Witness Name/Signature: Date/Time: [facility] SystemJmxqbsoa84-37-1889 Discharge summary Date of Service 06/29/2024 14:52:22 [...] June 18, 2024 after being referred from [facility] where he had initially been referred from his nursing facility for evaluationof acute on chronic anemia along with decubitus wound recently had work done on decubitus wound in march of 2024. (hgb 6 and s/p 2 PRBCs during admit), R gluteal abscess from May prior to admit for which he is being managed at [facility] currently with ID guiding antibiotic management (generalsurgery/urology/plastic [...] gastroenterology who recommends ERCP. [facility] for [facility]. patient is planned for procedure on Lori. Patient today on 06/29 is refusing inpatient [...] Extremities: No edema, No cyanosis or clubbing SENIOR DATABASE ENGINEER: 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 Code Status [...] [address] [facility], [place] [phone] Additional Information: call for apt, to schedule ERCP (scope procedure) Follow Up with SON STEEL BA, MD, Infectious Disease, Infectious Disease Group When:Within 1-2 days Where:[facility] [address] [place] [address]- [phone] Additional Information: call for apt Follow Up with PHOEBE ADAM APRN-[employer] CENTRAL OFFICE INSTALLER When:Within 1-2 days Where:[address] [place] [address]- Additional Information: call for apt Follow Up [...] CARMELO LUNDBERG MD on 06/29/2024 02:58 PM [facility] [id number] Progress note Date of Service June 30, [...] improving patient can be followed wound[facility] in [facility]. If they have any questions would be happy to answer. Patient he can be discharged anytime the bed is available Anticipated Date of Discharge Depends on the certification Time Spent About 25 minutes Digitally Signed by FRANCESCA PARNELL MD on 06/30/2024 11:32 AM [facility] [id number] Discharge summary Date of Service 06/29/2024 14:52:22 [...] June 18, 2024 after being referred from [facility] where he had initially been referred from his nursing facility for evaluationof acute on chronic anemia along with decubitus wound recently had work done on decubitus wound in march of 2024. (hgb 6 and s/p 2 PRBCs during admit), R gluteal abscess from May prior to admit for which he is being managed at [facility] currently with ID guiding antibiotic management (generalsurgery/urology/plastic [...] gastroenterology who recommends ERCP. Patient will have Eliquis held consultation to interventional GI for ERCP. [...] Extremities: No edema, No cyanosis or clubbing SENIOR DATABASE ENGINEER: 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 Code Status [...] [address] [facility], [place] [phone] Additional Information: call for apt, to schedule ERCP (scope procedure) Follow Up with SON STEEL BA, MD, Infectious Disease, Infectious Disease Group When:Within 1-2 days Where:[facility] [address] [place] [address]- [phone] Additional Information: call for apt Follow Up with PHOEBE ADAM APRN-[employer] CENTRAL OFFICE INSTALLER When:Within 1-2 days Where:[address] [place] [address]- Additional Information: call for apt Follow Up [...] CARMELO LUNDBERG MD on 06/29/2024 02:58 PM [facility] SystemShtgpazg05-27-3941 Gastroenterology Consult note Date of Service 06/29/2024 [...] and potential findings Plan Continue to hold Eliquis ERCP plan for Sunday Patient understands but [...] 3 mg= 1 tab(s), Oral, qHS, PRN Arlington 325- 5 mg oral tablet, 1 tab(s), Oral, q4h, PRN Arlington 325-10 mg oral tablet, 1 tab(s), Oral, [...] AM Digitally Signed by JOSE LAYTON MD [facility] SystemKqxfjupk94-35-0307 Note Date of Service 06/28/2024 10:35:38 Chief Complaint elevated alk phos Subjective Patient is a 49-year-old gentleman who was admitted on June 18, 2024 after being referred from [facility] where he had initially been referred from his nursing facility for evaluationof acute on chronic anemia along with decubitus wound recently had work done on decubitus wound in march of 2024. (hgb 6 and s/p 2 PRBCs during admit), R gluteal abscess from May prior to admit for which he is being managed at [facility] currently with ID guiding antibiotic management (generalsurgery/urology/plastic [...] +, wound VAC in place, no tenderness SENIOR DATABASE ENGINEER: 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 Weight Dosing [...] CARMELO LUNDBERG MD on 06/28/2024 10:40 AM [facility] [id number] Note Date of Service 06/27/2024 12:16:22 Chief Complaint weakness Subjective Patient is a 49-year-old gentleman who was admitted on June 18, 2024 after being referred from [facility] where he had initially been referred from his nursing facility for evaluationof acute on chronic anemia along with decubitus wound recently had work done on decubitus wound in march of 2024. (hgb 6 and s/p 2 PRBCs during admit), R gluteal abscess from May prior to admit for which he is being managed at [facility] currently with ID guiding antibiotic management (generalsurgery/urology/plastic [...] gastroenterology who recommends ERCP. Patient will have Eliquis held consultation to interventional GI for ERCP. [...] Extremities: No edema, No cyanosis or clubbing SENIOR DATABASE ENGINEER: 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 Weight Dosing [...] CARMELO LUNDBERG MD on 06/27/2024 12:19 PM [facility] SystemCtivskwf50-15-2730 Gastroenterology Progress note Date of Service June [...] EDVIN OATES MD on 06/27/2024 10:15 AM [facility] SystemAwpvkssj95-80-9442 Note Date of Service 06/26/2024 14:35:11 Chief Complaint weakness Subjective Patient is a 49-year-old gentleman who was admitted on June 18, 2024 after being referred from [facility] where he had initially been referred from his nursing facility for evaluationof acute on chronic anemia along with decubitus wound recently had work done on decubitus wound in march of 2024. (hgb 6 and s/p 2 PRBCs during admit), R gluteal abscess from May prior to admit for which he is being managed at [facility] currently with ID guiding antibiotic management (generalsurgery/urology/plastic [...] in place Extremities: No edema, no jaundice SENIOR DATABASE ENGINEER: 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 Weight Dosing [...] CARMELO LUNDBERG MD on 06/26/2024 02:39 PM [facility] SystemKbrznmcw47-79-6420 Gastroenterology Progress note Date of Service 06/26/2024 [...] 2 mL, IV Push, q4h Lab Results 08/08 08:05 WBC: 7.8 Hgb: 8.4 L Hct: [...] by LIAT IBARRA on 06/26/2024 10:08 AM [facility] [id number] Note ORIGINAL EXAMINATION: MRCP06/26/2024 11:10 am MRI [...] Sign Date: 06/26/2024 5:05:11 PM Ordering Provider: LIAT IBARRAAcmc Healthcare SystemBuvnbntj77-24-4813 Gastroenterology Progress note Date of Service 06/26/2024 [...] by LIAT IBARRA on 06/26/2024 10:08 AM [facility] SystemSgjxdahd16-91-6996 Gastroenterology Consult note Date of Service 06/25/2024 Reason for Consultation Elevated alk phos and GGT Referring Physician Hospitalist History of Present Illness Patient is a 49-year-old male w/PMHx nonischemic cardiomyopathy, pAFIB on Eliquis, CKD, 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 Patient originally presented to [facility] with anemia, concern for decubitus wound infection/sepsis. He was transferred and admitted to [facility] on 06/18. 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 Patient originally presented to [facility] with anemia, concern for decubitus wound infection/sepsis. He was transferred and admitted to [facility] on 06/18. On initial presentation, CBC notable for Hgb 7.7 with MCV 81.4. Iron studies c/w anemia of chronic disease with iron 23, TIBC 191,sat 12, ferritin 397.3. CMP notable for sodium 134, BUN 52, creatinine 2.74. TB 0.3, AST 58, ALT 45and AP 1435. Alk phos has continued to elevate throughout this admission up to 1825 yesterday prompting GI consultation. US (06/23/24) noted [...] Procedure/Surgical History Testicle: 1993 Amputation Medications Inpatient cefTRIAXone, 2 gram(s)= 20 [...] 3 mg= 1 tab(s), Oral, qHS, PRN Arlington 325- 5 mg oral tablet, 1 tab(s), Oral, q4h, PRN Arlington 325-10 mg oral tablet, 1 tab(s), Oral, [...] by LIAT IBARRA on 06/25/2024 03:05 PM [facility] SystemWzhhcdkd16-56-7129 Infectious disease Progress note Date of Service [...] no surrounding erythema, left buttock mild erythema/rash QUALITY PROCESS ENGINEER, BLE/pedal dry peelingskin INCISIONS/DRESSINGS: Scrotum gauze/ABD dressing [...] Faiza Galindo RN on 06/24/2024 09:16 AM [facility] SystemSfsmulfj26-66-2607 Infectious disease Progress note Date of Service [...] Faiza Galindo RN on 06/24/2024 09:16 AM [facility] SystemFkrytigg63-03-5195 Infectious disease Progress note Subjective Patient was [...] STEEL BA, MD on 06/23/2024 05:08 PM [facility] SystemSepzqgeu49-14-6462 Note ORIGINAL EXAMINATION: LIMITED ABDOMINAL ULTRASOUND06/23/2024 10:20 [...] Sign Date: 06/23/2024 10:37:07 AM Ordering Provider: [facility]08-05-2024 Note IR Procedure Record Summary Primary Physician: WALDO ESPARZA MD Finalized Date/Time: 06/23/24 09:24:09 Pt. Name: GURINDER HAHN Ry Marion./Sex: 1975 Male Med Rec #: [id number] Physician: ILEANA RICO MD Financial #: [id number] Pt. Type: I Room/Bed: 6676/A Admit/Disch: 06/18/24 16:06:00 - Institution: Allergies identified in patient's electronic medical record at time of printing on 06/23/24 Entry 1 Entry 2 Substance ampicillin penicillin Reaction Type Allergy Allergy Last Modified By: CELSO Hughes RN Yvonne M 04/26/24 11:25:34 04/26/24 11:24:22 Case Attendance- IR Entry 1 Entry 2 Entry 3 Case Attendee DEBORA, MITRYAN MD Schultheis, Elena N Barney, RN Nata L RN Role Performed Primary Surgeon Procedure Nurse [...] Corley 06/23/24 09:05:23 Case Comments Finalized By: CESLO Corley Document Signatures Signed By: CELSO Corley 06/23/24 09:24 [facility] [id number] Note ORIGINAL HISTORY: ORDERING SYSTEM PROVIDED HISTORY: Reason for Exam: MRI pelvis showing 6.4 x 8.5 cm subcutaneous abscess, TECHNIQUE: Dose modulation, iterative reconstruction, and/or weight based adjustment of the mA/kV was utilized to reduce the radiation dose to as low as reasonably achievable. PROCEDURE: 1. Aborted CT guided percutaneous drainage catheter placement, supra teens right gluteal collection MARINE STRUCTURAL DESIGNER: Dr. Esparza SUGAR REFINER: None ANESTHESIA: None FINDINGS: PRE: Within the [...] Date: 06/23/2024 9:45:31 AM Ordering Provider: CIARA [facility]08-04-2024 Nurse Progress note patient refused his dressing change at this time. Patient states he will allow his dressing change later tonight. Digitally Signed by CELSO Gray on 06/22/2024 06:36 PM [facility] SystemVftgkhjh85-40-0096 Infectious disease Progress note Date of Service [...] CIARA VIGIL MD on 06/22/2024 11:58 AM [facility] SystemLwpvfgyc58-27-5297 Urology Progress note Date of Service 06/20/24 [...] Intake 344.00 Total Output 2325.00 Fluid Balance - Physical Exam GENERAL: 49 year old male [...] NATA BENZ DO on 06/20/2024 12:33 PM [facility] SystemIqbsekgu31-59-6882 Surgery Hospital Progress note Date of Service [...] WILLA RODARTE MD on 06/20/2024 07:42 AM [facility] SystemIgnjidnw82-00-5652 Note ORIGINAL EXAMINATION: MRI OF THE PELVIS [...] Date: 06/20/2024 10:13:17 AM Ordering Provider: ILEANA [facility]08-01-2024 Nurse Progress note ACNS charting reviewed, bedside nurse present for medication administration. Digitally Signed by Maricel Zelaya RN on 06/19/2024 03:18 PM [facility] SystemVbajvtkz94-72-3096 Note Reason for Consultation Admission From: [facility] Consult Skin Team re: Pressure Staging - [...] Digitally Signed by CELSO Olivas February on 06/19/2024 01:04 PM [facility] SystemEbhaoxlf29-73-5345 Infectious disease Consult note Date of Service [...] hemoglobin [place] 6 [place] CT abdomen and pelvis [...] had CT abdomen and pelvis obtained at [place] which has shown to fluid collections close [...] mg= 1 tab(s), Oral, qHS, PRN meropenem Arlington 325- 5 mg oral tablet, 1 tab(s), Oral, q4h, PRN Arlington 325-10 mg oral tablet, 1 tab(s), Oral, [...] CIARA VIGIL MD on 06/19/2024 02:53 PM [facility] SystemJznjxwdq77-42-3695 Consult note Date of Service June 19, 2024 Reason for Consultation Pressure ulcer right gluteal area stage IV Nonpressure ulcer perineum History of Claire's disease Diabetes mellitus type 2 History of coronary artery disease Referring Physician Hospitalist History of Present Illness Patient was admitted to [facility] in March of this year he had [...] EXTR area patient also is in a senior care being treated. He had developed a pressure ulcer on the right gluteal area which was not present when the patient was here and has some slough necrotic tissue present patient also has an open area on the suprapubic area which is very clean and healthy looking. Patient is now was brought to [facility] for further care for localizedabscess which was [...] problems has been presently staying in a senior care. Wound has been treated at the nursing wound care in [place] which seems to be improving gradually. But [...] being followed at the wound center in [place] which seems to be adequateand treatment there [...] mg= 1 tab(s), Oral, qHS, PRN meropenem Arlington 325- 5 mg oral tablet, 1 tab(s), Oral, q4h, PRN Arlington 325-10 mg oral tablet, 1 tab(s), Oral, [...] FRANCESCA PARNELL MD on 06/19/2024 11:40 AM [facility] [id number] Surgery Consult note Date of Service Reason [...] his comorbidities the patient was sent to [place] emergency room yesterday secondary to his abnormal [...] gangrene. The patient was then transferred to [facility] for definitive care Patient has been being seen and treated at the wound center in [place] for his sacral ulcer. He reports that [...] mg= 1 tab(s), Oral, qHS, PRN meropenem Arlington 325- 5 mg oral tablet, 1 tab(s), Oral, q4h, PRN Arlington 325-10 mg oral tablet, 1 tab(s), Oral, [...] by IRIS VILLALPANDO on 06/19/2024 10:30 AM [facility] [id number] Surgery Consult note Date of Service Reason [...] his comorbidities the patient was sent to [place] emergency room yesterday secondary to his abnormal [...] gangrene. The patient was then transferred to [facility] for definitive care Patient has been being seen and treated at the wound center in [place] for his sacral ulcer. He reports that [...] mg= 1 tab(s), Oral, qHS, PRN meropenem Arlington 325- 5 mg oral tablet, 1 tab(s), Oral, q4h, PRN Arlington 325-10 mg oral tablet, 1 tab(s), Oral, [...] by IRIS VILLALPANDO on 06/19/2024 10:30 AM [facility] SystemVtalvylb70-66-2031 Urology Consult note Date of Service 06/19/24 Reason for Consultation Perineal fluid collection History of Present Illness 49-year-old male past medical history of nonischemic cardiomyopathy EF of 25 to 30% improved to 40-45% by last echo, proximal atrial fibrillation on Eliquis, CKD, chronic Hernandez, Claire's gangrene status postdebridement back in March 2024, insulin-dependent diabetes, hyperlipidemia, hypertension presents to [facility] due to concern for decubitus wound infection [...] mg= 1 tab(s), Oral, qHS, PRN meropenem Arlington 325- 5 mg oral tablet, 1 tab(s), Oral, q4h, PRN [place] 325-10 mg oral tablet, 1 tab(s), Oral, [...] NATA BENZ DO on 06/19/2024 08:21 AM [facility] SystemZzvvjsjg52-93-3290 History and physical note Date of Service 06/18/2024 Chief Complaint Gluteal abscess, sepsis History of Present Illness 49-year-old male past medical history of nonischemic cardiomyopathy EF of 25 to 30% improved to 40-45% by last echo, proximal atrial fibrillation on Eliquis, CKD, chronic Hernandez, Claire's gangrene status postdebridement back in March 2024, insulin-dependent diabetes, hyperlipidemia, hypertension presents to [facility] due to concern for decubitus wound infection [...] qualifying data available. Exam done with bedside conductor/engineer General- in no acute distress, alert Cardiac- [...] and scrotal abscess. Follow-up urine culture from [facility]. SCD DVT prophylaxis. Blood sugar control with home insulin regimen sliding scale. MRI of the pelvis to rule out osteomyelitis. Hold anticoagulation for now given anemia. This document was transcribed using a voice recognition software and may contain typographical errors. Lab Results No 36 Hour Lab Data Assessment/Plan Orders: acetaminophen(Tylenol), 650 mg= 2 tab(s), Oral, q4h, PRN acetaminophen-hydrocodone(Arlington 325- 5 mg oral tablet), 1 tab(s), Oral, q4h, PRN acetaminophen-hydrocodone(Ar[place] 325-10 mg oral tablet), 1 tab(s), Oral, [...] pro... Ambulate, 06/18/24 17:04:00 EDT, PRN Order [employer] Diet(ADA Diet), 06/18/24 17:13:00 EDT, [...] order Vancomycin Pharmacist Monitoring, 06/19/24 6:00:00 EDT, [id number], entered secondary to Vancomycin order Vital Signs, [...] ILEANA RICO MD on 06/18/2024 07:58 PM [id number] Evaluation + Plan noteExtracted from: Title:History and Physical Author:KEREN RICO MD Date:06/18/24 Orders: acetaminophen(Tylenol), 650 mg= 2 tab(s), Oral, q4h, PRN acetaminophen-hydrocodone(Arlington 325- 5 mg oral tablet), 1 tab(s), Oral, q4h, PRN acetaminophen-hydrocodone(Ar[place] 325-10 mg oral tablet), 1 tab(s), Oral, [...] pro... Ambulate, 06/18/24 17:04:00 EDT, PRN Order [employer] Diet(ADA Diet), 06/18/24 17:13:00 EDT, [...] order Vancomycin Pharmacist Monitoring, 06/19/24 6:00:00 EDT, [id number], entered secondary to Vancomycin order Vital Signs, 06/18/24 17:04:00 EDT, q8h Future Appointments Appointment Date:07/22/2024 11:00:00 AM Scheduled Provider:SAMRA BURROWS APRN-MEXICAN FOOD MACHINE TENDER Location:UROLOGY Appointment Type:URO OV Future Scheduled Tests Radiology* CT Pelvis w/ IV Contrast Only 06/27/24 [facility] 07-19-2024 Note Discharge Instructions Thank you for allowing [facility] to assist you with your healthcare needs. The following is importantdischarge information regarding your hospital visit. What to Do Next Instructions from Your Care Team No qualifying data available. Post Acute Orders No qualifying data available. You Need to Schedule the Following Appointments Follow Up with PHOEBE ADAM APRN-ABEBA When:Within 2-4 days Where:[address] [place] [address]- Allergies ampicillin Unknown penicillin Unknown Medications Please [...] from the wound Vomiting, constipation, or diarrhea 3937-8977 The [employer]. [address] [place], [place] [address]. All rights reserved. This information is not [...] hard Skin that has lost feeling (sensation) 2156-5902 [employer]. [address] [place] [address]. All rights reserved. This information is not intended as a substitute for professional medical care. Always follow yourhealthcare professional's instructions. Additional Information VACCINATE! IT SAVES LIVES! Members of the community who have not yet received the COVID-19 vaccine and would like to receive it can visit one of [facility] vaccine clinics. There are many vaccine clinic locations within the [facility]. For locations and available times, please visit www.gettheshot.coronavirus.[place].gov/. It is important to note that some COVID mobile vaccine clinics are held outdoors and may be canceled in rainy or stormy conditions. To learn more about pediatric vaccinations (ages 5-11), we invite you to visit the [facility] webpage. https://www.[facility].org/pages/4283-Haxfz-Lqveskodyku-Rwvfkbztov-Lqhuk-Dpm stions.htmlTo learn more about the COVID-19 vaccine, we invite you to visit the CDC website for a list of frequently asked questions. https://www.cdc.gov/coronavirus/2019-ncov/vaccines/faq.html [facility] Patient Portal Access Instructions: Stay connected with your healthcare team and access your personal medical information anytime with the [facility] Patient Portal. If you would like a full copy of your medical records please contact the [facility] Medical Records Department Sunday through Sunday between 8a.m. and 4:30p.m. Please follow the directions below to access the portal: 1.Access the email account you provided upon registration to the hospital.2.Look for an invitation email from [facility].3.Open the email and access the invitation link: Accept Invitation to [employer]4.Fill in the required nguyen to create your account. Sign into [email or web address] with your username and password that you [...] you will allow to register on the [facility] [employer] Patient Portal for access to your information. You can also access the [employer] Patient Portal on the [employer]. Simply click on Health Records under Campus Bubble and then click on the [place] logo. [...] Call your local pharmacy or go to http://bit.StratusLIVE/6D6Rp2e to find one close to you.3.Make use of household items: Use cat litter or old coffee grounds to dispose medications if other options arenot available. Mix your drugs with these household products, seal them in an airtight container andthrow it into the garbage. Call [facility]: [phone] to be sure your drugs can be [...] aware that I should contact my doctor. Patient/Technology Applications Teacher Signature: Date/Time: Relationship to Patient: Witness Name/Signature: Date/Time: [facility]07-19-2024 Hospital Discharge instructions Patient Education 06/06/2024 [...] from the wound Vomiting, constipation, or diarrhea 2779-2515 The [employer]. [address] [place] [address], [place] [address]. All rights reserved. This information is not [...] hard Skin that has lost feeling (sensation) 4315-7753 [employer]. [address] [place] [address]. All rights reserved. This information is not intended as a substitute for professional medical care. Always follow yourhealthcare professional's instructions. Follow Up Care 06/06/2024 01:28:08 With:PHOEBE ADAM Address: [address] [place] [address]- When:2-4 days [facility] 07-19-2024 Note ORIGINAL EXAMINATION: ONE XRAY [...] Kelvin Doll DO Electronically signed By Kelvin oDll DO Dictated Date: 06/06/2024 1:07:06 PM Prelim Date: 06/06/2024 1:07:43 PM Sign Date: 06/06/2024 1:07:43 PM Ordering Provider: [facility]07[facility]24 Telephone encounter Note* Telephone Encounter - MOIRA Peralta CNP - 06/02/2024 2:21 PM EDT [facility]ed. [id number] Miscellaneous Notes* Telephone Encounter - MOIRA Peralta [...] on this medication: 12/14/2023 [id number] Telephone encounter Note* Telephone Encounter - MOIRA Peralta CNP - 06/02/2024 12:50 PM EDT Is he still at an extended care facility? If he is, are they managing his medications there? [id number] Telephone encounter Note* Telephone Encounter - Viki Velasquez MA - 06/02/2024 8:23 AM EDT Prescription Request: Last medication check: 04/05/2023 Last physical exam: 06/22/2021 Next scheduled appointment: none Last date of refill on this medication: 12/14/2023 [id number] Hospital Discharge instructions Patient Education 05/15/2024 17:45:11 Heart-Healthy Eating Plan, Ajxu-fy-Qtax Heart-Healthy Eating Plan Heart-healthy meal planning includes: [...] Fats and oils Meat fat, or shortening. [place] butter, hydrogenated oils, palm oil, coconut oil, [...] 05/06/2013 Document Revised: 01/09/2019 Document Reviewed: 12/13/2018 KnowFu Patient Education 2020 UtiliData. Follow Up Care 05/07/2024 13:00:12 With:Discharge to [facility] Level of Care Address:Unknown When:1-2 days With:DAMARI FATIMA MD, Internal Medicine Address: [address] [facility] [place] [address]- When:5 to 7 days With:JEN BELTRAN MD Address: [address] [facility] [address] [place] [phone] When:Within 10 Day(s) With:PHOEBE ADAM Address: [address] [place] [address] Business (1) When: Unknown Comments:PLEASE CALL THIS OFFICE TO SCHEDULE A HOSPITAL FOLLOW UP APPOINTMENT. With:JEN BELTRAN MD Address: [address] [place] [address]- [phone] When:06/17/2024 10:15:00 With:[facility] Address: [address] [place] [address]- When:5-7 days Comments:Ahmad following scrotum wound & please see right buttock ulcer [facility] 06-27-2024 Note Discharge Instructions Thank you for allowing [facility] to assist you with your healthcare needs. The following is importantdischarge information regarding your hospital visit. Your Care Team PHOEBE ADAM GUN FITTER-FIBER OPTIC CENTRAL OFFICE INSTALLER What to do next Instructions From Your Doctor 1. Kindly follow up with your Primary Care Physician and Toy Consultant as recommended. You will needto do labwork in 3-5 days after being discharged. 2. Some of your medications may have changed during this hospital stay. Please go over these changes with your nurse before you leave the hospital. _ 3. Take all your medications as prescribed. If you have any queries, please reach out to our [facility] office at [phone] for general queries and [phone] for medication refills. 4. All your medical records and results are available to you through our [facility] Patient Portal. Tosign up, please visit [email or web address] Scheduled Follow-Up Appointments Appointment Type When Where Contact Information StatusCV OV Hospital Follow Up 06/17/2024 10:15 AM EDT [facility] Confirmed Follow Up Appointments Follow Up with Discharge to [facility], [facility] Level of Care When:Within 1-2 days Follow Up with DAMARI FATIMA MD, Internal Medicine When:Within 5 to 7 days Where:[address] [facility] [place] [address]- Follow Up with JEN BELTRAN MD When:In 10 days Where:[address] [facility] [address] [place] [phone] Follow Up with PHOEBE ADAM Where:[address] [place] [address]- Business (1) Additional Information: PLEASE CALL THIS OFFICE TO SCHEDULE A HOSPITAL FOLLOW UP APPOINTMENT. Follow Up with [facility] When:Within 5-7 days Where:[address] [place] [address]- Additional Information: Ahmad following scrotum wound & please see right buttock ulcer Follow Up with JEN BELTRAN MD When:06/17/2024 10:15 AM EDT Where:[address] [place] [address]- [phone] The Following Activity and Diet Have Been [...] BELTRAN MD Results Notify to: PCP and food service manager, 05/15/24 11:49:00 EDT Discharge Radiology No [...] Transfer of Care Prognosis - Ordered -- Aide, Patient Aware: Yes Transfer of Care Rehab [...] a day Duration: 30 Days Pickup at [facility] #76916 Changed bumetanide (bumetanide 1 mg oral tablet) 1 tab(s) by mouth Two (2) times a day Duration: 30 Days [facility]1727 Changed cefdinir (cefdinir 300 mg oral capsule) 1 cap by mouth Two (2) times a day Duration: 13 Days Pickup at [facility] #84540 Changed metoprolol (Toprol-XL 100 mg oral tablet, extended release) 1 tab(s) by mouth Two (2) times a day Duration: 30 Days Pickup at [facility] #56361 Changed minocycline (minocycline 100 mg oral capsule) 1 cap by mouth Every 12 hours Duration: 13 Days [facility] at [facility] Unchanged acetaminophen (Tylenol 8 Hour 650 mg [...] Two (2) times a day Pharmacy Information [facility] #[id number]: [address], [place] [id number] [phone] What How Much When Comments Stop Taking [...] Fats and oils Meat fat, or shortening. [place] butter, hydrogenated oils, palm oil, coconut oil, [...] 05/06/2013 Document Revised: 01/09/2019 Document Reviewed: 12/13/2018 Elsevier Patient Education 2020 KnowFu Inc. Additional Information VACCINATE! IT SAVES LIVES! Members of the community who have not yet received the COVID-19 vaccine and would like to receive it can visit one of [facility] vaccine clinics. There are many vaccine clinic locations within the [facility]. For locations and available times, please visit https://[email or web address].[place].gov/. It is important to note that some COVID mobile vaccine clinics are held outdoors and may be canceled in rainy or stormy conditions. To learn more about pediatric vaccinations (ages 5-11), we invite you to visit the [employer] webpage. https://www.FanXchanges.org/pages/6875-Owcpf-Pdhzasznmxu-Qfdmvrxvkw-Trqek-Ykb stions.htmlTo learn more about the COVID-19 vaccine, we invite you to visit the CDC website for a list of frequently asked questions.https://www.cdc.gov/coronavirus/2019-ncov/vaccines/faq.html [facility] Patient Portal Access Instructions: Stay connected with your healthcare team and access your personal medical information anytime with the [facility] Patient Portal. Please follow the directions below to create your [facility] account: 1.Access the email account you provided upon registration to the hospital/physician office.2.Look for an invitation email from [facility].3.Open the email and access the invitation link: AcceptInvitation to [employer].4.Fill in the required nguyen to create your account. To access your account, visit [email or web address]. Click the blue button labeled Access Patient [...] who you will allowto register on the [facility] Patient Portal for access to your information. You can also access the [facility] Patient Portal on the [facility] artemio. Simply click on Patient Portal and then log into your account. If you would like to receive a full copy of your medical records, please contact the [facility] Medical Records Department by calling [phone], Sunday through Sunday between 8 a.m. and [...] Call your local pharmacy or go to http://That's Solar/5M4Ym5e to find one close to you.3.Make use of household items: Use cat litter or old coffee grounds to dispose medications if other options arenot available. Mix your drugs with these household products, seal them in an airtight container andthrow it into the garbage. Call [facility]: [phone] to be sure your drugs can be [...] Signatures Patient Education Materials Heart-Healthy Eating Plan, Kgdc-sv-Qjaf Medication Leaflets My discharge plan and instructions have been reviewed and explained to me and I,GURINDER HAHN understand my current condition and have read and understand these discharge instructions. I have received a written copy of the plan/instructions. If I have questions, I am aware that I should contact my doctor. Patient/Technology Applications Teacher Signature: Date/Time: Relationship to Patient: Witness Name/Signature: Date/Time: [facility]2733 Discharge summary Date of Service 05/15/24 Discharge [...] after discharge and close follow-up with PCP/primary food service manager/statement clerk as an outpatient. SGLT2i inhibitors are not [...] Classes, Once Consult to Dietitian (Consult to Deep Fryer Assembler Adult) - Ordered -- 05/14/24 17:22:00 EDT, [...] up with your Primary Care Physician and Toy Consultant as recommended. You will needto do labwork in 3-5 days after being discharged. 2. Some of your medications may have changed during this hospital stay. Please go over these changes with your nurse before you leave the hospital. _ 3. Take all your medications as prescribed. If you have any queries, please reach out to our [facility] office at [phone] for general queries and [phone] for medication refills. 4. All your medical records and results are available to you through our [employer] Patient Portal. Tosign up, please visit [email or web address] Medications Changed apixaban (Eliquis 5 mg oral [...] [address] [facility] [place] [address]- Follow Up with JEN BELTRAN MD When:In 10 days Where:[address] [facility] [address] [facility] [place] [phone] Follow Up with PHOEBE ADAM Where:[address] [place] [address]- Business (1) Additional Information: PLEASE CALL THIS OFFICE TO SCHEDULE A HOSPITAL FOLLOW UP APPOINTMENT. Follow Up with [facility] When:Within 5-7 days Where:[address] [place] [address]- Additional Information: Ahmad following scrotum wound & please see right buttock ulcer Follow Up with JEN BELTRAN MD When:06/17/2024 10:15 AM EDT Where:[address] [facility] [place] [address] [phone] Follow Up Appointments No qualifying data available. Follow Up Labs/Studies Discharge Labs Discharge Outpatient Labwork - Ordered -- BMP, Magnesium level, Follow up of electrolytes while on cardiac medications, follow-up within: 3-5 days, Results Notify to: JEN BELTRAN MD Results Notify to: PCP and food service manager, 05/15/24 11:49:00 EDT Discharge Studies No [...] JC OROZCO MD on 05/15/2024 11:54 AM [facility]yy[facility]26-38-3983 Note Discharge Instructions Thank you for allowing [facility] to assist you with your healthcare needs. The following is importantdischarge information regarding your hospital visit. Your Care Team PHOEBE ADAM APRN-ABEBA What to do next Instructions From Your Doctor 1. Kindly follow up with your Primary Care Physician and Toy Consultant as recommended. You will needto do labwork in 3-5 days after being discharged. 2. Some of your medications may have changed during this hospital stay. Please go over these changes with your nurse before you leave the hospital. _ 3. Take all your medications as prescribed. If you have any queries, please reach out to our [facility] office at [phone] for general queries and [phone] for medication refills. 4. All your medical records and results are available to you through our [facility] Patient Portal. Tosign up, please visit [email or web address] Scheduled Follow-Up Appointments Appointment Type When Where Contact Information StatusCV OV Hospital Follow Up 06/17/2024 10:15 AM EDT [facility] Confirmed Follow Up Appointments Follow Up with Discharge to [facility] Level of Care When:Within 1-2 days Follow Up with DAMARI FATIMA MD, Internal Medicine When:Within 5 to 7 days Where:[address] [facility] [place] [address]- Follow Up with JEN BELTRAN MD When:In 10 days Where:[address] [facility] [address] [place] [phone] Follow Up with PHOEBE ADAM Where:[address] [place] [address]- Business (1) Additional Information: PLEASE CALL THIS OFFICE TO SCHEDULE A HOSPITAL FOLLOW UP APPOINTMENT. Follow Up with [facility] When:Within 5-7 days Where:[address] [place] [address]- Additional Information: Ahmad following scrotum wound & please see right buttock ulcer Follow Up with JEN BELTRAN MD When:06/17/2024 10:15 AM EDT Where:[address] [place] [address]- [phone] The Following Activity and Diet Have Been [...] BELTRAN MD Results Notify to: PCP and food service manager, 05/15/24 11:49:00 EDT Discharge Radiology No [...] a day Duration: 30 Days [facility] at [facility]140 Changed bumetanide (bumetanide 1 mg oral tablet) 1 tab(s) by mouth Two (2) times a day Duration: 30 Days Start on Pickup [facility] #35176 Changed cefdinir (cefdinir 300 mg oral capsule) 1 cap by mouth Two (2) times a day Duration: 13 Days Pickup at [facility]70995 Changed metoprolol (Toprol-XL 100 mg oral tablet, extended release) 1 tab(s) by mouth Two (2) times a day Duration: 30 Days Pickup at [facility]08211 Changed minocycline (minocycline 100 mg oral capsule) 1 cap by mouth Every 12 hours Duration: 13 Days [facility]up at [facility] #76496 Unchanged acetaminophen (Tylenol 8 Hour 650 mg [...] times a day Pharmacy Information [facility]25: [address], [place] [id number] [phone] What How Much When Comments Stop Taking [...] to receive it can visit one of [facility] vaccine clinics. There are many vaccine clinic locations within the [facility]. For locations and available times, please visit https://gettheshot.[email or web address].[place].gov/. It is important to note that some COVID mobile vaccine clinics are held outdoors and may be canceled in rainy or stormy conditions. To learn more about pediatric vaccinations (ages 5-11), we invite you to visit the [employer] [facility] webpage. https://www.akBuilding Successful Teenss.org/pages/8490-Bjhmd-Yelkcdqxier-Xtikqqzybd-Tlrhe-Ppu stions.htmlTo learn more about the COVID-19 vaccine, we invite you to visit the CDC website for a list of frequently asked questions.https://www.cdc.gov/coronavirus/2019-ncov/vaccines/faq.html [facility] Patient Portal Access Instructions: Stay connected with your healthcare team and access your personal medical information anytime with the [facility] Patient Portal. Please follow the directions below to create your [facility] account: 1.Access the email account you provided upon registration to the hospital/physician office.2.Look for an invitation email from [facility].3.Open the email and access the invitation link: AcceptInvitation to [facility].4.Fill in the required nguyen to create your account. To access your account, visit [email or web address]. Click the blue button labeled Access Patient [...] who you will allowto register on the [facility] Patient Portal for access to your information. You can also access the [facility] Patient Portal on the [employer] artemio. Simply click on Patient Portal and then log into your account. If you would like to receive a full copy of your medical records, please contact the [facility] Medical Records Department by calling [phone], Sunday through Sunday between 8 a.m. and [...] Call your local pharmacy or go to http://That's Solar/7S9Wy7p to find one close to you.3.Make use of household items: Use cat litter or old coffee grounds to dispose medications if other options arenot available. Mix your drugs with these household products, seal them in an airtight container andthrow it into the garbage. Call [facility]: [phone] to be sure your drugs can be [...] aware that I should contact my doctor. Patient/Technology Applications Teacher Signature: Date/Time: Relationship to Patient: Witness Name/Signature: Date/Time: [facility]dl38-43-5945 Discharge summary Date of Service 05/15/24 Discharge [...] after discharge and close follow-up with PCP/primary food service manager/statement clerk as an outpatient. SGLT2i inhibitors are not [...] Classes, Once Consult to Dietitian (Consult to Deep Fryer Assembler Adult) - Ordered -- 05/14/24 17:22:00 EDT, [...] up with your Primary Care Physician and Toy Consultant as recommended. You will needto do labwork in 3-5 days after being discharged. 2. Some of your medications may have changed during this hospital stay. Please go over these changes with your nurse before you leave the hospital. _ 3. Take all your medications as prescribed. If you have any queries, please reach out to our [facility] office at [phone] for general queries and [phone] for medication refills. 4. All your medical records and results are available to you through our [employer] Patient Portal. Tosign up, please visit [email or web address] Medications Changed apixaban (Eliquis 5 mg oral [...] and [facility] [place] [address]- Follow Up with JEN BELTRAN MD When:In 10 days Where:[address] [facility] [address] [place] [phone] Follow Up with PHOEBE ADAM Where:[address] [place] [address]- Business (1) Additional Information: PLEASE CALL THIS OFFICE TO SCHEDULE A HOSPITAL FOLLOW UP APPOINTMENT. Follow Up with [facility] When:Within 5-7 days Where:[address] [place] [phone]- Additional Information: Ahmad following scrotum wound & please see right buttock ulcer Follow Up with JEN BELTRAN MD When:06/17/2024 10:15 AM EDT Where:[address] [place] [address]- [phone] Follow Up Appointments No qualifying data available. Follow Up Labs/Studies Discharge Labs Discharge Outpatient Labwork - Ordered -- BMP, Magnesium level, Follow up of electrolytes while on cardiac medications, follow-up within: 3-5 days, Results Notify to: JEN BELTRAN MD Results Notify to: PCP and food service manager, 05/15/24 11:49:00 EDT Discharge Studies No [...] JC OROZCO MD on 05/15/2024 11:54 AM [facility]khe83-29-3331 Nephrology Progress note Subjective Patient seen and [...] DAMARI FATIMA MD on 05/15/2024 10:53 AM [facility] SystemBlbkcxpv50-28-8954 Cardiology Progress note Date of Service 05/14/24 [...] JC OROZCO MD on 05/14/2024 12:36 PM [facility] [id number] Nurse Progress note Students documentation was reviewed, and all medications were verified prior to administration Digitally Signed by Ana Armijo RN on 05/14/2024 02:47 PM [facility] [id number] Cardiology Progress note Date of Service 05/14/24 [...] JC OROZCO MD on 05/14/2024 12:36 PM [facility] SystemWrmxxzya05-33-3509 Nephrology Progress note Subjective Patient seen and [...] DAMARI FATIMA MD on 05/14/2024 08:26 AM [facility] SystemIbbupqtq10-74-9554 Cardiology Progress note Date of Service 05/13/2024 [...] JC OROZCO MD on 05/13/2024 04:25 PM [facility] SystemKyppyozn72-33-3518 Cardiology Progress note Date of Service 05/13/2024 [...] Chronic bifascicular block (LPHB+RBBB), QRS 170 ms GNEE on CKD IIIb (baseline creatinine 1.9 2.0) [...] JC OROZCO MD on 05/13/2024 04:25 PM [facility] SystemSzabhekj54-21-0537 Infectious disease Progress note Subjective Patient seen [...] STEEL BA, MD on 05/13/2024 04:38 PM [facility] SystemXdfyxlsh43-10-1888 Nephrology Progress note Subjective Patient seen and [...] DAMARI FATIMA MD on 05/13/2024 11:04 AM [facility] SystemCfpawfwg97-80-4008 Cardiology Progress note Date of Service May [...] JC OROZCO MD on 05/12/2024 02:48 PM [facility] SystemVgdtaeqv02-63-6577 Cardiology Progress note Date of Service May [...] JC OROZCO MD on 05/12/2024 02:48 PM [facility] SystemFgvbgrge53-44-7280 Note* Exam Date Time Procedure Performing Provider Status 05/12/24 10:45 AM Echocardiogram, Adult - CV Auth (Verified) [facility] 06-21-2024 Note DATE OF PROCEDURE: 05/09/2024 Dr. [...] reported separately. Aurelia Burgess MD BB/NTS JOB#: [id number] DICTATION ID#: [id number] Digitally Signed by AURELIA BURGESS MD on 05/11/2024 06:23 PM Digitally Signed by LAMAR PETTIT MD [facility] SystemRzvgvrpa22-30-4749 Note Date of Service 05/09/24 Chief Complaint Diabetic management Subjective 49-year-old male with past medical history of obesity, tobacco abuse, uncontrolled type 2 diabetes with recent A1c of 14.9, hypertension, hyperlipidemia, neuropathy, chronic kidney disease, chronic diastolic dysfunction, foreigners gangrene. Patient presented from [facility] on 05/07/2024 with complaints of chest pain. [...] by MAGDALENE ROMO on 05/09/2024 10:56 AM [facility] SystemJbkdzwog58-39-9490 Note ORIGINAL NM MYOCARDIAL SPECT STRESS/REST CLINICAL [...] AM Sign Date: 05/09/2024 3:51:58 PM Ordering Provider:[facility]06-21-2024 Note Date of Service 05/08/2024 Reason for Consultation Diabetic management Referring Physician Dr. Johnson History of Present Illness 49-year-old male with a past medical history significant for obesity, tobacco use, uncontrolled type 2 diabetes, hypertension, hyperlipidemia, neuropathy, chronic kidney disease, diastolic dysfunction [echo 04/22/2024 EF 25-30%], Claire's gangrene presented to [facility] emergency department on 05/07/2024 with complaints of chest pain and was subsequently transferred to [facility] CCU. Patient wasrecently admitted from 04/16/2024-05/06/2024 [...] placement at discharge and was sent to [facility] for less than 24 hours before returning [...] and he typically runs in the 200s. Wpliy-hv-wrwn glucose trends this admission: [phone]. Patient also complains of severe peripheral neuropathy [...] Procedure/Surgical History Testicle: 1993 Amputation Medications Inpatient ASA, 81 mg= 1 [...] by MANUEL GALO on 05/08/2024 10:23 PM [facility] SystemCjhtkoas43-38-1329 History and physical note Date of Service 05/08/2024 History of Present Illness Toy Consultant : Dr. 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 On the way to the senior care on the discharge day, patient started to have chest discomfort, located in the mid chest, sometimes pressure-like and sometimes burning or aching in character, 5/10 severity, lasted for a few minutes up to 30 minutes and subsided spontaneously. Patient had recurrent ep isode of similar chest pain over the next 24 hours and therefore decided to go to [facility]. Patient was then transferred to the [facility]. At the time of examination, patient is [...] JUMANA WALKER MD on 05/08/2024 08:04 AM [facility] SystemMkgfvgyj13-96-2496 Note Date of Service 05/08/2024 Reason for Consultation Diabetic management Referring Physician Dr. Johnson History of Present Illness 49-year-old male with a past medical history significant for obesity, tobacco use, uncontrolled type 2 diabetes, hypertension, hyperlipidemia, neuropathy, chronic kidney disease, diastolic dysfunction [echo 04/22/2024 EF 25-30%], Claire's gangrene presented to [facility] emergency department on 05/07/2024 with complaints of chest pain and was subsequently transferred to [facility] CCU. Patient wasrecently admitted from 04/16/2024-05/06/2024 [...] placement at discharge and was sent to [facility] for less than 24 hours before returning [...] and he typically runs in the 200s. Ffzul-en-fomy glucose trends this admission: [phone]. Patient also complains of severe peripheral neuropathy [...] by MANUEL GALO on 05/08/2024 10:23 PM [facility] SystemRrkzludh49-58-9631 Infectious disease Consult note Date of Service [...] cefdinir up until 05/18/2024. 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 Obesity No significant ST changes except [...] Appointments Appointment Date:06/17/2024 10:15:00 AM Scheduled Provider: Location:[facility] Appointment Type:CV OV Hospital Follow Up [facility] 06-20-2024 Note Date of Service 05/08/24 Reason for Consultation Admission From: ECF Consult [...] by CELSO Oneill on 05/08/2024 10:11 AM [facility] SystemRzvwyedv86-71-2391 Nephrology Consult note Date of Service 05-08 [...] BARBY WEBSTER MD on 05/11/2024 07:35 AM [facility] SystemHbhgqadn86-07-8107 NoteSINUS RHYTHM RIGHT BUNDLE BRANCH BLOCK Electronic Signature: LAMAR PETTIT MD 05/09/2024 09:11:04[facility] 06-20-2024 History and physical note Date of Service 05/08/2024 History of Present Illness Toy Consultant : Dr. 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 On the way to the senior care on the discharge day, patient started to have chest discomfort, located in the mid chest, sometimes pressure-like and sometimes burning or aching in character, 5/10 severity, lasted for a few minutes up to 30 minutes and subsided spontaneously. Patient had recurrent ep isode of similar chest pain over the next 24 hours and therefore decided to go to [facility]. Patient was then transferred to the [facility]. At the time of examination, patient is [...] JUMANA WALKER MD on 05/08/2024 08:04 AM [facility] SystemDzgwxixb26-78-5103 Note ORIGINAL EXAMINATION: TWO XRAY VIEWS OF [...] Date: 05/08/2024 7:33:55 AM Ordering Provider: JUMANA BATES [facility]06-19-2024 Note ORIGINAL EXAMINATION: ONE XRAY VIEW OF [...] Date: 05/07/2024 11:41:47 AM Ordering Provider: [facility] NoteSinus rhythm Right bundle branch block Compared to ECG at 04/22/2024 09:09:03 BORDERLINE ECG Electronic Signature: JIMENA HOAGN DO 05/07/2024 11:00:04[facility] 06-18-2024 Nurse Progress note report called to omari wong in [place] Digitally Signed by CELSO Constantino on 05/06/2024 05:56 PM [facility] SystemZqdwbezk45-36-3104 Hospital Discharge instructions Patient Education 05/06/2024 13:00:29 [...] 06/02/2015 Document Revised: 12/12/2018 Document Reviewed: 12/12/2018 KnowFu Patient Education 2019 [employer]. Follow Up Care 04/15/2024 22:37:31 With:Omari Wong - skilled - [phone] Address:Unknown When:1-2 days With:TELMA GUEVARA MD Address: [address] [facility] [place] [address]- When: Unknown Comments:6 weeks for repeat colonoscopy With:BERNIE HERNÁNDEZ MD, [facility] Address: [address] [place] [phone] When:1-2 days With:SON STEEL BA, MD, Infectious Disease, Infectious Disease Group Address: [facility] [place] [address] [place] [phone] When:1-2 days Comments:2-3 weeks With:GLENN THAYER MD Address: [address] [facility] [address] [facility] [place] [phone] When:5 to 7 days Comments:for ischemic evaluation With:[facility] Address: [address] [place] [address]- When:1-2 days Comments:Please follow up with Dr. Parnell in 2 weeks in the wound center With:[facility] Address: [address] [place] [phone]- When:1-2 days Comments:Call for follow up visit for wound care management With:PHOEBE ADAM Address: [address] [place] [address]- Business (1) When:1-2 days [facility] 06-18-2024 Progress note Date of Service May [...] 0.5% topical solution), 1 artemio, Perineum, BID [employer] Diet(ADA Diet), 05/05/24 16:29:00 EDT, [...] the patient wants to go to a senior care which he can be followed up there with dressing changes with Dakin's solution twice a day and patient will require follow-up at the wound clinicin about 2 to 3 weeks once patient is evaluated appears clean he may require some skin grafting procedure on the penis as well as in the scrotal area. Digitally Signed by FRANCESCA PARNELL MD on 05/06/2024 01:15 PM [facility] SystemRqkhkuin54-63-2978 Note Discharge Instructions Thank you for allowing [facility] to assist you with your healthcare needs. The following is importantdischarge information regarding your hospital visit. Your Care Team PHOEBE ADAM GUN FITTER-FIBER OPTIC CENTRAL OFFICE INSTALLER Your Diagnosis A-fib Acute respiratory failure GENE (acute kidney injury) Anemia Diabetes mellitus Claire gangrene Obesity Septic shock What to do next Follow Up Appointments Follow Up with Omari Wong - skilled - [phone] When:Within 1-2 days Follow Up with TELMA GUEVARA MD Where:[address] [place] [address]- Additional Information: 6 weeks for repeat colonoscopy Follow Up with BERNIE HERNÁNDEZ MD, [facility] When:Within 1-2 days Where:[address] [facility] [address] [place] [address]- [phone] Follow Up with SON STEEL BA, MD, Infectious Disease, Infectious Disease Group When:Within 1-2 days Where:[facility] [place] [address] [place] [phone] Additional Information: 2-3 weeks Follow Up with GLENN THAYER MD When:Within 5 to 7 days Where:[address] [facility] [address] [facility] [place] [phone] Additional Information: for ischemic evaluation Follow Up with [facility] When:Within 1-2 days Where:[address] [place] [address]- Additional Information: Please follow up with Dr. Parnell in 2 weeks in the wound center Follow Up with [facility] When:Within 1-2 days Where:[address] [place] [address]- Additional Information: Call for follow up visit for wound care management Follow Up with PHOEBE ADAM When:Within 1-2 days Where:[address] [place] [address]- Business (1) The Following Activity and Diet [...] 1-3 days, Results Notify to: PHOEBE ADAM GUN FITTER- FIBER OPTIC CENTRAL OFFICE INSTALLER, 05/06/24 11:34:00 EDT Discharge Radiology No qualifying [...] days, Results Notify to: PHOEBE ADAM APRN- FIBER OPTIC CENTRAL OFFICE INSTALLER, 05/06/24 11:34:00 EDT Transfer of Care Orders [...] (oral) (a SEET a MIN oh fen) Mo AF, Children's Tylenol, Leader 8 Hour Pain [...] may report side effects to FDA at [phone]-UTK-0836. What other drugs will affect acetaminophen? Other drugs may affect acetaminophen, including prescription and rcqn-szc-yvpzyaj medicines, vitamins, and herbal products. Tell your [...] to ensure that the information provided by [employer]. ('Multum') is accurate, up-to-date, and complete, but no guarantee is made to that effect. Drug information contained herein may be time sensitive. [employer] information has been compiled for use by healthcare practitioners and consumers in the [place] and therefore [employer] does not warrant that uses outside of the [place] are appropriate, unless specifically indicated otherwise. [employer]'s drug information does not endorse drugs, diagnose patients or recommend therapy. [facility] drug information isan informational resource designed to [...] effective or appropriate for any given patient. [facility] does not assume any responsibility for any aspect of healthcare administered with the aid of information [facility] provides. The information contained herein is not intended to cover all possible uses, directions, precautions, warnings, drug interactions, allergic reactions, or adverse effects. If you have questions about the drugs you are taking, check with your doctor, nurse or pharmacist. Copyright 3474-6020 [facility]. Version: .. Revision Date: 12/04/2023. Education Materials [...] 06/02/2015 Document Revised: 12/12/2018 Document Reviewed: 12/12/2018 KnowFu Patient Education 2020 KnowFu Inc. Additional Information VACCINATE! IT SAVES LIVES! Members of the community who have not yet received the COVID-19 vaccine and would like to receive it can visit one of [facility] vaccine clinics. There are many vaccine clinic locations within the [facility]. For locations and available times, please visit https://gettheshot.coronavirus.[place].gov/. It is important to note that some COVID mobile vaccine clinics are held outdoors and may be canceled in rainy or stormy conditions. To learn more about pediatric vaccinations (ages 5-11), we invite you to visit the [facility] webpage. https://www.[facility].org/pages/8141-Jtpzg-Sixldcxsebu-Pxplclngwt-Iuepi-Usg stions.htmlTo learn more about the COVID-19 vaccine, we invite you to visit the CDC website for a list of frequently asked questions.https://www.cdc.gov/coronavirus/2019-ncov/vaccines/faq.html [facility] Patient Portal Access Instructions: Stay connected with your healthcare team and access your personal medical information anytime with the [facility] [employer] Patient Portal. Please follow the directions below to create your [employer] account: 1.Access the email account you provided upon registration to the hospital/physician office.2.Look for an invitation email from [facility].3.Open the email and access the invitation link: AcceptInvitation to [employer].4.Fill in the required nguyen to create your account. To access your account, visit [email or web address]. Click the blue button labeled Access Patient Portal and then log in with the username and password that you created in the steps above. You will be able to view your test results, lab results, a summary of your visits, upcoming appointments and more. There is also a convenient messaging option where you can send secure messages to your [employer] Leaguevider. In addition, you will have the ability to download any documents or summaries to your computer and/or send the information securely to a physician. Remember that your healthcare information is confidential, so carefully consider who you will allowto register on the [facility] [employer] Patient Portal for access to your information. You can also access the [facility] [employer] Patient Portal on the [employer] artemio. Simply click on Patient Portal and then log into your account. If you would like to receive a full copy of your medical records, please contact the [facility] Medical Records Department by calling [phone], Sunday through Sunday between 8 a.m. and [...] Call your local pharmacy or go to http://bit.ly/4N8Rv7j to find one close to you.3.Make use of household items: Use cat litter or old coffee grounds to dispose medications if other options arenot available. Mix your drugs with these household products, seal them in an airtight container andthrow it into the garbage. Call [facility]: [phone] to be sure your drugs can be [...] aware that I should contact my doctor. Patient/Technology Applications Teacher Signature: Date/Time: Relationship to Patient: Witness Name/Signature: Date/Time: [facility] SystemReuuwncz84-77-2440 Discharge summary Date of Service 05-06-2024 Discharge Diagnosis 1. Acute respiratory failure 2. Septic shock 3. Claire gangrene 4. GENE (acute kidney injury) 5. Diabetes mellitus 6. Anemia 7. A-fib 8. Obesity Additional Orders: Ordered: Dakins Half Strength 0.25% topical solution,Apply 1 artemio, Topical, BID, 0 Refill(s), Soln, 125 Ordered: Discharge,05/06/24 11:34:00 EDT, [facility] Ordered: Discharge Blood Glucose Monitoring,When to [...] 1-3 days, Results Notify to: PHOEBE ADAM APRN-FIBER OPTIC CENTRAL OFFICE INSTALLER, 05/06/24 11:34:00 EDT Ordered: Transfer of Care OT,Reason for therapy: debility, 05/06/24 11:34:00 EDT Ordered: Transfer of Care Orders Electronically Signed By,05/06/24 11:34:00 EDSYLVESTER Espinoza IVOR MD Ordered: Transfer of Care PT,Reason for [...] Result Date: April 16, 2024 Verified By: CÉSAR SOLIS, ANTONIO Harris CLINICAL STATEMENT: IMPRESSION: 1. Endotracheal tube and [...] Follow Up Follow Up with Omari Wong skilled - [phone] When:Within 1-2 days Follow Up with TELMA GUEVARA MD Where:[address] [place] [address]- Additional Information: 6 weeks for repeat colonoscopy Follow Up with BERNIE HERNÁNDEZ MD, [facility] When:Within 1-2 days Where:[address] [facility] [address] [place] [address]- [phone] Follow Up with SON STEEL BA, MD, Infectious Disease, Infectious Disease Group When:Within 1-2 days Where:[facility] [place] [address] [place] [phone] Additional Information: 2-3 weeks Follow Up with GLENN THAYER MD When:Within 5 to 7 days Where:[address] [facility] [address] [facility] [place] [phone] Additional Information: for ischemic evaluation Follow Up with [facility] When:Within 1-2 days Where:[address] [place] [phone]- Additional Information: Please follow up with Dr. Parnell in 2 weeks in the wound center Follow Up with [facility] When:Within 1-2 days Where:[address] [place] [address]- Additional Information: Call for follow up visit for wound care management Follow Up with PHOEBE ADAM When:Within 1-2 days Where:[address] [place] [address]- Business (1) Follow Up Appointments Transfer of [...] days, Results Notify to: PHOEBE ADAM APRN- FIBER OPTIC CENTRAL OFFICE INSTALLER, 05/06/24 11:34:00 EDT Discharge Studies No Follow-up Studies Discharge Diet Transfer of Care Diet - Ordered -- Type of Diet: Regular Diet, 05/06/24 11:34:00 EDT Discharge Activity Transfer of Care Activity - Ordered -- Activity As Tolerated, 05/06/24 11:34:00 EDT Condition on Discharge stable Discharge Disposition SNF Jonn Information Provided To patient Time Spent A total of 35 minutes reviewing patient's diagnostic, labs/tests, seeing and examining the patient and documenting in the medical record, please see assessment for further details. Digitally Signed by MY DUTTON APRN-OLI on 05/06/2024 12:51 PM [facility] SystemMomvkehd66-04-3319 Note Discharge Instructions Thank you for allowing [facility] to assist you with your healthcare needs. The following is importantdischarge information regarding your hospital visit. Your Care Team PHOEBE ADAM APRN-FIBER OPTIC CENTRAL OFFICE INSTALLER Your Diagnosis A-fib Acute respiratory failure GENE (acute kidney injury) Anemia Diabetes mellitus Claire gangrene Obesity Septic shock What to do next Follow Up Appointments Follow Up with Omari Wong - [facility] - [phone] When:Within 1-2 days Follow Up with TELMA GUEVARA MD Where:[address] [place] [address]- Additional Information: 6 weeks for repeat colonoscopy Follow Up with BERNIE HERNÁNDEZ MD, [facility] When:Within 1-2 days Where:[address] [facility] [address] [place] [address]- [phone] Follow Up with SON STEEL BA, MD, Infectious Disease, Infectious Disease Group When:Within 1-2 days Where:[facility] [place] [address] [place] [address]- [phone] Additional Information: 2-3 weeks Follow Up with GLENN THAYER MD When:Within 5 to 7 days Where:[address] [facility] [address] [facility] [place] [address]- [phone] Additional Information: for ischemic evaluation Follow Up with [facility] When:Within 1-2 days Where:[address] [place] [address]- Additional Information: Please follow up with Dr. Parnell in 2 weeks in the wound center Follow Up with [facility] When:Within 1-2 days Where:[address] [place] [id number] Additional Information: Call for follow up visit for wound care management Follow Up with PHOEBE ADAM When:Within 1-2 days Where:[address] [place] [address]- Business (1) The Following Activity and Diet [...] days, Results Notify to: PHOEBE ADAM APRN- [employer] CENTRAL OFFICE INSTALLER, 05/06/24 11:34:00 EDT Discharge Radiology No qualifying [...] days, Results Notify to: PHOEBE ADAM APRN- [employer] CENTRAL OFFICE INSTALLER, 05/06/24 11:34:00 EDT Transfer of Care Orders [...] to receive it can visit one of [facility] vaccine clinics. There are many vaccine clinic locations within the [facility]. For locations and available times, please visit [email or web address] It is important to note that some COVID mobile vaccine clinics are held outdoors and may be canceled in rainy or stormy conditions. To learn more about pediatric vaccinations (ages 5-11), we invite you to visit the [facility] webpage. [email or web address] learn more about the COVID-19 vaccine, we invite you to visit the CDC website for a list of frequently asked questions.https://www.cdc.gov/coronavirus/2019-ncov/vaccines/faq.html [employer] Patient Portal Access Instructions: Stay connected with your healthcare team and access your personal medical information anytime with the [employer] Patient Portal. Please follow the directions below to create your [employer] account: 1.Access the email account you provided upon registration to the hospital/physician office.2.Look for an invitation email from [facility].3.Open the email and access the invitation link: AcceptInvitation to [employer].4.Fill in the required nguyen to create your account. To access your account, visit [email or web address]. Click the blue button labeled Access Patient [...] who you will allowto register on the [facility] [employer] Patient Portal for access to your information. You can also access the [facility] [employer] Patient Portal on the [facility] artemio. Simply click on Patient Portal and then log into your account. If you would like to receive a full copy of your medical records, please contact the [facility] Medical Records Department by calling [phone], Sunday through Sunday between 8 a.m. and [...] Call your local pharmacy or go to [email or web address] to find one close to you.3.Make use of household items: Use cat litter or old coffee grounds to dispose medications if other options arenot available. Mix your drugs with these household products, seal them in an airtight container andthrow it into the garbage. Call [facility]: [phone] to be sure your drugs can be [...] aware that I should contact my doctor. Patient/Technology Applications Teacher Signature: Date/Time: Relationship to Patient: Witness Name/Signature: Date/Time: [facility] SystemFtahtumu81-72-6046 Anesthesiology Consult note Patient: GURINDER HAHN Age: [...] TU JHA MD on 05/05/2024 06:52 PM [facility] [id number] Anesthesiology Consult note Patient: GURINDER HAHN Age: [...] Problem list: Medical Diabetes / SNOMED CT 150861526 / Confirmed GERD (gastroesophageal reflux disease) / SNOMED CT 796994982 / Confirmed High cholesterol / SNOMED CT 36636954 / Confirmed, Active Problems (6) Diabetes GERD (gastroesophageal reflux disease) Gout High cholesterol Neuropathy Tobacco use Histories Past Medical History: Active Diabetes (260653639) Family History: Patient was adopted. Alcohol abuse Father Diabetes Father Procedure history: Testicle ([id number]) in 1992 at 18 Years. 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 Comments: 03/08/2024 17:11 CELSO Mendez A Right foot 2nd and 3rd toes, left foot 4th toe Social History: Social & Psychosocial Habits Alcohol 4Risk Assessment: No Risk 03/08/2024 Use: Current Frequency: 1-2 times per year Substance Abuse 4Risk Assessment: Denies Substance Abuse 03/08/2024 Use: Never Tobacco 03/08/2024 Tobacco Use: 10 or more cigarettes (1/ Type: Cigarettes 03/08/2024isk Assessment: No Risk Home/Environment 03/08/2024 Living situation: [...] Oral36.8 DegC (MAY 05 06:54) Heart Rate Tgujpd52 bpm (MAY 05 08:49) SBPH 147 mmHg [...] 16)23(JOSSY 15)24(JOSSY 14)23(JOSSY 13) Cl 106(JOSSY 16)107(JOSSY 15)106(JOSYS 14)105(JOSSY 13) Cr H 2.16(JOSSY 16)H 1.97(JOSSY 15)H 2.14(JOSSY 14)H 2.18(JOSSY 13) BUN H 47.0(JOSSY 16)H 42.0(JOSSY 15)H 41.0(JOSSY 14)H 41.0(JOSSY 13) Glucose H 255(JOSSY 16)H 185(JOSSY 15)H 166(JOSSY 14)H 207(JOSSY 13) Mg 1.8(JOSSY 15)L 1.4(JOSSY 14)1.8(JOSSY 11)1.6(JOSSY 10) Phos 4.5(APR 30)4.7(APR 28)4.7(APR 27)5.0(APR 24) Ca L 7.2(MAY 04)L 7.9(MAY 03)L 7.8(MAY 02)L 7.8(MAY 01) PT H 15.6(APR 27)H 15.6(APR 24)H 16.4(APR [...] No Transport Mode Order Detail Patient bed Ged Preparation Teacher Details Form Ged Preparation Teacher Details Form 05/05/2024 10:31 EDT Individuals Taught Patient Learning Readiness Willing to learn Barriers to Learning None evident Teaching Method Explanation Preferred Spoken Language Lebanese Preferred Written Language Lebanese Diagnostic Procedures Education Preprocedure/surgical instructions Teaching Evaluation [...] 8:20 EDT Blood Glucose, Capillary 225 mg/dL IA Blood Glucose Testing Reason Routine 05/05/2024 8:00 [...] intact Skin Turgor Non-Elastic Mucous Membrane Color [place] Mucous Membrane Description Moist Sensory Perception Costa [...] evident Teaching Method Explanation Preferred Spoken Language Lebanese Preferred Written Language Lebanese Incision/Wound Education Dressing changes, Other: The importance [...] Type 0-10 Pain scale Nail Bed Color [place] Capillary Refill < 2 seconds Dorsalis Pedis [...] intact Skin Turgor Non-Elastic Mucous Membrane Color [place] Mucous Membrane Description Moist Sensory Perception Costa [...] Alert Aspiration Risk None Eye Opening Response Bo Spontaneously Best Motor Response [place] Obeys simple commands Best Verbal Response [place] Oriented Bo Coma Score 15 GRAY Yes Left Pupil [...] evident Teaching Method Explanation Preferred Spoken Language Lebanese Preferred Written Language Lebanese Diagnostic Procedures Education Postprocedure/surgical instructions Teaching Evaluation Needs reinforcement 05/04/2024 9:00 EDT losartan 25 mg mg 05/04/2024 8:43 EDT Apical Heart Rate 88 bpm Reason For Taking VItal Signs Routine Primary Pain Intensity 0 Primary Pain Nonverbal Response Nods No Pain Scale Type 0-10 Pain scale Nail Bed Color [place] Capillary Refill < 2 seconds Heart Sounds [...] intact Skin Turgor Non-Elastic Mucous Membrane Color [place] Mucous Membrane Description Moist Sensory Perception Costa [...] HI Sodium L (more content not included)... [facility] SystemDnxtilqb37-46-8841 Note Date of Service 05-05-2024 Chief Complaint [...] by MY DUTTON on 05/05/2024 10:39 AM [facility] SystemBoxmraqt47-07-9400 Note Date of Service 04/24/1624 Chief Complaint [...] plastics, recommendation is to undergo additional debridement onay with Dr. Morales. Patient seen and evaluated [...] by MY DUTTON on 05/04/2024 02:08 PM [facility] SystemKvihdjqn39-94-0540 Nephrology Progress note Subjective Patient seen and [...] DAMARI FATIMA MD on 05/04/2024 12:45 PM [facility] SystemXxwxhzeu26-41-2811 Urology Progress note Date of Service 05/04/2024 [...] RUBY GEE MD on 05/04/2024 10:03 AM [facility] SystemZekmduzq14-02-4767 Note Date of Service 05-03-2024 Chief Complaint [...] plastics, recommendation is to undergo additional debridement onMond with Dr. Morales. Patient seen and evaluated [...] Date: April 24, 2024 Verified By: Contributor_system SiC ProcessingAllison CLINICAL STATEMENT: IMPRESSION: 1. Right lower lobe consolidation with moderate bilateral effusions.2. No acute intra-pathology however evaluation is limited without IV contrast3. Anterior abdominal wall surgical wound. CT Thorax w/o Contrast Result Date: April 24, 2024 Verified By: Contributor_system [employer] CLINICAL STATEMENT: IMPRESSION: Right lower lobe consolidation [...] pre-CERT still pending as discussed with social service liaison today. Discussed w/ Dr. Love Time Spent A total of 35 minutes reviewing patient's diagnostic, labs/tests, seeing and examining the patient and documenting in the medical record, please see assessment for further details. Digitally Signed by MY DUTTON on 05/03/2024 01:21 PM [facility] SystemAorqxpzg91-00-3812 Note Date of Service 05-03-2024 Chief Complaint [...] Date: April 24, 2024 Verified By: Contributor_system SiC ProcessingAllison CLINICAL STATEMENT: IMPRESSION: 1. Right lower lobe consolidation with moderate bilateral effusions.2. No acute intra-pathology however evaluation is limited without IV contrast3. Anterior abdominal wall surgical wound. CT Thorax w/o Contrast Result Date: April 24, 2024 Verified By: Contributor_system SiC ProcessingAllison CLINICAL STATEMENT: IMPRESSION: Right lower lobe consolidation [...] pre-CERT still pending as discussed with social service liaison today. Discussed w/ Dr. Love Time Spent A total of 35 minutes reviewing patient's diagnostic, labs/tests, seeing and examining the patient and documenting in the medical record, please see assessment for further details. Digitally Signed by MY DUTTON on 05/03/2024 01:21 PM [facility] SystemLqwuwxty47-44-9167 Nephrology Progress note Subjective Seen and examined [...] DAMARI FATIMA MD on 05/03/2024 10:12 AM [facility] SystemDnzwmcfy87-04-8953 Progress note Date of Service May 02, [...] Output 2775.00 Fluid Balance -2084.00 Physical Exam Weight Dosing Weight: 125 kg [...] Obesity Septic shock Orders: Kerlix Soft Bandage ([id number]), 05/02/24 11:08:00 EDT, Stat, Quantity 4, Weight: 125, 05/02/24 11:08:00 EDT I plan to do surgical debridement on Sunday at 9:30 in the morning in the operating room I would recommend a surgical clearance from the medical service. Patient can be discharged to a senior care. Digitally Signed by FRANCESCA PARNELL MD on 05/02/2024 11:43 AM [facility] SystemRbpbhtff81-52-3733 Urology Progress note Date of Service 05/02/2024 [...] RUBY GEE MD on 05/02/2024 11:43 AM [facility] SystemGmyxpfys78-81-3687 Nephrology Progress note Date of Service May [...] despite negative I'sand O's. 2. Sepsis: Has Lcaire's gangrene. Blood pressure currently stable. Remains on [...] GABRIELA LOTT MD on 05/02/2024 08:35 AM [facility] SystemUlyacbnk74-16-1443 Progress note Date of Service May 01, [...] FRANCESCA PARNELL MD on 05/01/2024 11:31 AM [facility] SystemMlklljaz52-02-0696 Infectious disease Progress note Subjective Patient seen [...] Date: April 24, 2024 Verified By: Contributor_system, [employer] CLINICAL STATEMENT: IMPRESSION: 1. Right lower lobe consolidation with moderate bilateral effusions.2. No acute intra-pathology however evaluation is limited without IV contrast3. Anterior abdominal wall surgical wound. CT Thorax w/o Contrast Result Date: April 24, 2024 Verified By: Contributor_system, [employer] CLINICAL STATEMENT: IMPRESSION: Right lower lobe consolidation [...] Signed by Silva Marrero Licensed Scribe on 04/30/2024 09:36 AM Digitally Signed by SON STEEL BA, MD on 04/30/2024 05:35 PM [facility] SystemTkzjvzyt80-82-0084 Cardiology Progress note Date of Service 04/29/2024 [...] KIRILL PARNELL MD on 04/29/2024 10:57 AM [facility] SystemWtvezlbk52-90-9714 Cardiology Progress note Date of Service 04/29/2024 [...] KIRILL PARNELL MD on 04/29/2024 10:57 AM [facility] SystemBdvpqfgz27-17-9004 Note Date of Service 04/29/24 Subjective 48-year-old [...] VIRIDIANA WILLIAM MD on 04/29/2024 10:19 AM [facility] SystemPveblmyt21-32-5448 Cardiology Progress note Date of Service 04/28/2024 [...] KIRILL PARNELL MD on 04/28/2024 04:09 PM [facility] SystemKgdvukeo97-18-1368 Infectious disease Progress note Subjective Patient seen [...] Signed by Silva Marrero Licensed Scribe on 04/28/2024 02:46 PM Digitally Signed by SON STEEL BA, MD on 04/28/2024 05:48 PM [facility] SystemRcbfqdxx01-83-6696 Cardiology Progress note Date of Service 04/28/2024 [...] KIRILL PARNELL MD on 04/28/2024 04:09 PM [facility] SystemKflmgzbj73-00-3585 Note Date of Service 04/28/2024 Subjective 48-year-old [...] VIRIDIANA WILLIAM MD on 04/28/2024 09:41 AM [facility] SystemWeczcfdz83-97-5186 Note ORIGINAL EXAMINATION: ONE XRAY VIEW OF [...] Sign Date: 04/28/2024 5:53:42 AM Ordering Provider: HOMAR [facility]06-09-2024 Cardiology Progress note Date of Service [...] No, Diabetes: Yes, : N/A, Wt k, [facility], CCU Acute on chronic systolic heart [...] later Discussed with Dr. Jamie Wiggins MD Supersonic Engineer Messenger artemio or Pager [phone] Digitally Signed by POLY WIGGINS MD on 04/27/2024 02:49 PM [facility] SystemWdswqcau83-14-2001 Note ORIGINAL EXAMINATION: ONE XRAY VIEW OF [...] Sign Date: 04/27/2024 11:53:52 AM Ordering Provider: [facility]06-09-2024 Cardiology Progress note Date of Service [...] No, Diabetes: Yes, : N/A, Wt k, [facility], CCU Acute on chronic systolic heart [...] later Discussed with Dr. Jamie Wiggins MD Supersonic Engineer Messenger artemio or Pager [phone] Digitally Signed by POLY WIGGINS MD on 04/27/2024 02:49 PM [facility] SystemXxhjqxyr30-68-0255 Infectious disease Progress note Date of Service [...] CIARA VIGIL MD on 04/27/2024 10:02 AM [facility] SystemVnrbocpl04-22-0641 Note Date of Service 04/27/2024 day # [...] JOAN MCKEON MD on 04/27/2024 08:42 AM [facility] SystemLvwqmiuh19-95-5831 Anesthesiology Consult note Patient: GURINDER HAHN Age: [...] 17:35 EDT Apical Heart Rate 112 bpm IA 04/25/2024 17:23 EDT Heart Rate Monitored 117 [...] 14:15 EDT Heart Rate Monitored 120 bpm IA 04/25/2024 13:53 EDT Heart Rate Monitored 118 [...] GURINDER DELACRUZ MD on 04/26/2024 08:42 AM [facility] SystemUxgnwrqr29-44-9616 Note Date of Service 04/26/24 Procedure Name [...] DALE BOLAÑOS MD on 04/26/2024 08:38 AM [facility] SystemWazlykiz90-14-5789 Gastroenterology Consult note Date of Service 04/25/2024 [...] Date: April 24, 2024 Verified By: Contributor_system, [employer] CLINICAL STATEMENT: IMPRESSION: 1. Right lower lobe consolidation with moderate bilateral effusions.2. No acute intra-pathology however evaluation is limited without IV contrast3. Anterior abdominal wall surgical wound. CT Thorax w/o Contrast Result Date: April 24, 2024 Verified By: Contributor_system, [employer] CLINICAL STATEMENT: IMPRESSION: Right lower lobe consolidation [...] He has never undergone endoscopic evaluation and did discuss a colonoscopy although patient seems rather hesitant. [...] AJ GILLIAM PA-C on 04/25/2024 01:33 PM [facility] SystemRbuwvmii08-27-7005 Gastroenterology Consult note Date of Service 04/25/2024 [...] Date: April 24, 2024 Verified By: Contributor_system, [employer] CLINICAL STATEMENT: IMPRESSION: 1. Right lower lobe consolidation with moderate bilateral effusions.2. No acute intra-pathology however evaluation is limited without IV contrast3. Anterior abdominal wall surgical wound. CT Thorax w/o Contrast Result Date: April 24, 2024 Verified By: Contributor_system, [employer] CLINICAL STATEMENT: IMPRESSION: Right lower lobe consolidation [...] AJ GILLIAM PA-C on 04/25/2024 01:33 PM [facility] SystemOcdusdpv95-98-9918 Note ORIGINAL EXAMINATION: CT OF THE ABDOMEN [...] Sign Date: 04/24/2024 6:05:02 PM Ordering Provider: [facility]06-06-2024 Note ORIGINAL EXAMINATION: CT OF THE [...] Sign Date: 04/24/2024 6:13:39 PM Ordering Provider: [facility]06-06-2024 Consult note Date of Service 04/24/2024 Reason for Consultation Open wound of the scrotum penis and mons History of fourniers disease Diabetes mellitus type 2 Referring Physician Curtain Framer History of Present Illness Is diabetic which [...] FRANCESCA PARNELL MD on 04/24/2024 10:47 AM [facility] SystemOoqkfxvv76-07-3066 Note Reason for Consultation Admission From: Home [...] High cholesterol Digitally Signed by CELSO Olivas February04/24/2024 10:13 AM [facility] SystemUpgwtiyw19-52-7925 Urology Progress note Date of Service 04/24/2024 [...] BERNIE HERNÁNDEZ MD on 04/24/2024 08:48 AM [facility] SystemWoupuiuz26-82-6103 Urology Consult note Date of Service 04/23/2024 [...] BERNIE HERNÁNDEZ MD on 04/23/2024 02:17 PM [facility] SystemAmwttrta01-71-3638 Cardiology Consult note Reason for Consultation Atrial [...] rates less than 110. Given his elevated [id number]-ROGr, we recommend initiation of anticoagulation judiciously with [...] NATASHA VILA MD on 04/22/2024 07:57 PM [facility] SystemEzusjikh35-58-6973 Note* Exam Date Time Procedure Performing Provider Status 04/22/24 6:03 PM Echocardiogram, Adult - CV Auth (Verified) [facility] 06-04-2024 Note ORIGINAL EXAMINATION: ONE XRAY VIEW [...] Date: 04/22/2024 9:56:48 AM Ordering Provider: BRIDGETTE MORGANAcmc Healthcare SystemSzkareak26-57-7534 NoteATRIAL FLUTTER WITH 2:1 CONDUCTION Right bundle branch block ST depr, consider ischemia, inferior leads Electronic Signature: EVAN LOZANO MD 04/23/2024 18:12:07[facility] 06-04-2024 Note* Exam Date Time Procedure Performing Provider Status 04/22/24 6:27 AM VL Venous US/Doppler Both Legs(for DVT) Auth (Verified) [facility] 06-03-2024 NoteAtrial fibrillation Paired ventricular premature complexes Right bundle branch block Electronic Signature: JORDAN MONAE MD 04/22/2024 08:01:54[facility] 06-03-2024 NoteSinus tachycardia RBBB and LPFB Electronic Signature: JORDAN MONAE MD 04/22/2024 07:53:55[facility] 06-03-2024 Note Date of Service 04/21/24 Reason for Consultation Admission From: Home Consult Skin Team re: Pressure Staging - Ordered -- 04/19/24 2:51:00 EDT Skin Team Findings Vitals and Measurements T: 36.6 C (Oral) TMIN: 36.5 C (Oral) TMAX: 37.2 C (Oral) HR: 93 (Monitored) RR: 18 BP: 152/96 SpO2:96% Pressure Area Details ------Pressure Area------ Buttock Right - Pressure Area Cleansing: Cleaned with soap and water Buttock Right - Pressure Area Description: [place] edges 10%, Edges , Necrotic tissue, escharsoft [...] Barrier cream Present For Wound Observation: Patient Design Project Manager ------Recommendations------ Recommended Skin/Wound Interventions: Low air loss mattress, Seat cushion, Turn and position system, Barrier cream, Turn and reposition every 2 hours, Proposed orders sent to physician, Other: [facility] & foam to right butt, calmoseptine to [...] by CELSO Oneill on 04/21/2024 11:03 AM [facility] SystemZawndpif99-67-7734 [facility] Progress note Date of Service [...] by MELA TILLMAN on 04/20/2024 11:29 AM [facility] SystemCrmhrigc10-21-2074 Surgery Hospital Progress note Date of Service [...] by MELA TILLMAN on 04/20/2024 11:29 AM [facility] SystemKriyrvps86-07-3142 Infectious disease Consult note Date of Service [...] hours. White count history none 20,000, 34,600 yesterday. Renal function appears to be improving-nephrology on board. [...] STEEL BA, MD on 04/20/2024 01:31 PM [facility] SystemPexptfww89-99-5092 Note ORIGINAL EXAMINATION: ONE XRAY VIEW OF [...] Sign Date: 04/20/2024 6:38:24 AM Ordering Provider: TUYET [facility]06-01-2024 [facility] Progress note Date of Service 04/19/2024 [...] why the patient's leukocytosis continues to rise. Commerce dressing changes per urology. Continue triple antibiotics for now. Supportive care and continue to monitor CBC. Digitally Signed by CHRISTINA YADAV MD on 04/19/2024 10:49 AM [facility] SystemLaflvrfk77-56-6119 [facility] Progress note Date of Service 04/18/2024 [...] WILLA RODARTE MD on 04/18/2024 09:22 AM [facility] SystemFpzztgth45-30-1906 NoteSinus or ectopic atrial tachycardia Right bundle branch block Electronic Signature: NICOLASA SAINI MD 04/19/2024 17:01:04[facility] 05-30-2024 Note ORIGINAL EXAMINATION: ONE XRAY VIEW [...] Date: 2024 7:09:39 PM Ordering Provider: YAHAIRA [facility]05-30-2024 Note If ancillary studies were utilized, the following Laboratory Developed Test (LDT) disclaimer will apply: Under CLIA requirements, [facility] is qualified to perform high complexity testing. For all ancillary stains, positive and negative controls stain appropriately. Performance characteristics of immunohistochemical and chromogenic in-situ hybridization tests have been determined by [facility]. These tests are used for clinical purposes, They should not be regarded as investigational or for research. [facility] 05-30-2024 Note ORIGINAL EXAMINATION: ONE XRAY VIEW [...] Date: 2024 6:09:02 AM Ordering Provider[facility] Progress note In a search for NOK today, I was told there was an aunt Rosa and Uncle Huseyin Yoon in [facility].[phone] I called and left a message to please call us back regarding Gurinder, who is a patient in the ICU here. I was also given a name of a brother, Carmelo Benitez in [facility]. I did an onlinepeople finders search which tuned up 5 Carmelo Benitezs near [facility]. 2 were disconnected, one wrong number, and one was the wrong Carmeol, and I left a voicemail for the 5th one to please call us. Digitally Signed by CELSO Gomez on 04/16/2024 02:24 PM [facility] SystemWdogzctv54-01-7935 Evaluation + Plan noteExtracted from: Title:History and Physical Author:WILY CARMEN APRN-MEXICAN FOOD MACHINE TENDER Date:04/16/24 1. Claire's gangrene with significant leukocytosis [...] for GI prophylaxis Case discussed with on-call acid dumper Dr. Mckeon Addendum by EMANUEL MALHOTRA MD [...] was recommended that he go to a correction facility for rehab however he declined and eventually left AMA. He then came back to [facility] 04/06/2024 with penile pain and swelling and was diagnosed with balanitis and discharged on topical clotrimazole cream. He came back to [facility] 04/15/2024 with worsening penile pain [...] work of breathing. He was transferred to [facility] for further management and urologic evaluation [...] * Culture Respiratory with Gram Stain 04/25/24 [facility] 05-29-2024 Surgery Consult note Date of Service 04/16/2024 Reason for Consultation Fourniers gangrene Referring Physician Curtain Framer History of Present Illness This is a split shared visit between myself and Dr. Rodarte This patient was a 48-year-old male with a past medical history significant for uncontrolled type 2diabetes, hypercholesterolemia, and GERD who presented to the [place] emergency department on 04/15/2024 with complaints of [...] the emergency department and was transferred to [facility] for further care/management. He was seen and [...] a 48-year-old male who was transferred to [facility] after he presented to the [facility] emergency department on 04/15/2024 with scrotal edema, penile pain, and concern for necrosis. He also had additional complaints of nausea and vomiting. He was electively intubated inthe emergency department secondary to increased work of breathing. On arrival to [facility] he was evaluated by the urology service [...] antibiotic administration Critical care management per the acid dumper At this time, there are no plans [...] by AKIRA NORMAN on 04/16/2024 12:15 PM [facility] SystemMttghcwv83-22-5744 Surgery Consult note Date of Service 04/16/2024 Reason for Consultation Fourniers gangrene Referring Physician Curtain Framer History of Present Illness This is a split shared visit between myself and Dr. Rodarte This patient was a 48-year-old male with a past medical history significant for uncontrolled type 2diabetes, hypercholesterolemia, and GERD who presented to the [facility] emergency department on 04/15/2024 with complaints of [...] the emergency department and was transferred to [facility] for further care/management. He was seen and [...] Result Date: April 16, 2024 Verified By: ATNONIO LINDSEY MD CLINICAL STATEMENT: IMPRESSION: Interval placement [...] a 48-year-old male who was transferred to [facility] after he presented to the [facility] emergency department on 04/15/2024 with scrotal edema, penile pain, and concern for necrosis. He also had additional complaints of nausea and vomiting. He was electively intubated inthe emergency department secondary to increased work of breathing. On arrival to [facility] he was evaluated by the urology service [...] antibiotic administration Critical care management per the acid dumper At this time, there are no plans [...] by AKIRA NORMAN on 04/16/2024 12:15 PM [facility] [id number] Surgery Consult note Date of Service 04/16/2024 Reason for Consultation Fourniers gangrene Referring Physician Curtain Framer History of Present Illness This is a split shared visit between myself and Dr. Rodarte This patient was a 48-year-old male with a past medical history significant for uncontrolled type 2diabetes, hypercholesterolemia, and GERD who presented to the [facility] emergency department on 04/15/2024 with complaints of [...] the emergency department and was transferred to [facility] for further care/management. He was seen and [...] a 48-year-old male who was transferred to [facility] after he presented to the [facility] emergency department on 04/15/2024 with scrotal edema, penile pain, and concern for necrosis. He also had additional complaints of nausea and vomiting. He was electively intubated inthe emergency department secondary to increased work of breathing. On arrival to [facility] he was evaluated by the urology service [...] antibiotic administration Critical care management per the acid dumper At this time, there are no plans [...] by AKIRA NORMAN on 04/16/2024 12:15 PM [facility] [id number] Note If ancillary studies were utilized, the following Laboratory Developed Test (LDT) disclaimer will apply: Under CLIA requirements, [facility] is qualified to perform high complexity testing. For all ancillary stains, positive and negative controls stain appropriately. Performance characteristics of immunohistochemical and chromogenic in-situ hybridization tests have been determined by [facility]. These tests are used for clinical purposes, They should not be regarded as investigational or for research. [facility] 05-29-2024 Note If ancillary studies were utilized, the following Laboratory Developed Test (LDT) disclaimer will apply: Under CLIA requirements, [facility] is qualified to perform high complexity testing. For all ancillary stains, positive and negative controls stain appropriately. Performance characteristics of immunohistochemical and chromogenic in-situ hybridization tests have been determined by [facility]. These tests are used for clinical purposes, They should not be regarded as investigational or for research. [facility] 05-29-2024 Note If ancillary studies were utilized, the following Laboratory Developed Test (LDT) disclaimer will apply: Under CLIA requirements, [facility] is qualified to perform high complexity testing. For all ancillary stains, positive and negative controls stain appropriately. Performance characteristics of immunohistochemical and chromogenic in-situ hybridization tests have been determined by [facility]. These tests are used for clinical purposes, They should not be regarded as investigational or for research. [facility] 05-29-2024 Note If ancillary studies were utilized, the following Laboratory Developed Test (LDT) disclaimer will apply: Under CLIA requirements, [facility] is qualified to perform high complexity testing. For all ancillary stains, positive and negative controls stain appropriately. Performance characteristics of immunohistochemical and chromogenic in-situ hybridization tests have been determined by [facility]. These tests are used for clinical purposes, They should not be regarded as investigational or for research. [facility] 05-29-2024 Note If ancillary studies were utilized, the following Laboratory Developed Test (LDT) disclaimer will apply: Under CLIA requirements, [facility] is qualified to perform high complexity testing. For all ancillary stains, positive and negative controls stain appropriately. Performance characteristics of immunohistochemical and chromogenic in-situ hybridization tests have been determined by [facility]. These tests are used for clinical purposes, They should not be regarded as investigational or for research. [facility] 05-29-2024 Note If ancillary studies were utilized, the following Laboratory Developed Test (LDT) disclaimer will apply: Under CLIA requirements, [facility] is qualified to perform high complexity testing. For all ancillary stains, positive and negative controls stain appropriately. Performance characteristics of immunohistochemical and chromogenic in-situ hybridization tests have been determined by [facility]. These tests are used for clinical purposes, They should not be regarded as investigational or for research. [facility] 05-29-2024 History and physical note Date of [...] therapy was recommended to be discharged to correction facility for rehabilitation and strengthening which he declined and was discharged AMA. He was also evaluated at [facility] emergency department on 04/06/2024 with penile pain and swelling. He was diagnosed with balanitis and discharged with topical clotrimazole cream. Patient Marley presented to [facility] ER 04/15/2024 with complaints of [...] was transferred to the surgical ICU at [facility] under medicine service for evaluation and treatment [...] for GI prophylaxis Case discussed with on-call acid dumper Dr. Mckeon Problem List/Past Medical History Ongoing [...] MARIA ELENA CARMEN on 04/16/2024 02:29 AM [facility] [id number] Nephrology Consult note Date of Service 04/16/2024 [...] CHELA CHAPARRO DO on 04/16/2024 08:59 AM [facility] [id number] Procedure note Date of Service 04/16/2024 Procedure [...] Assessment/Plan Orders: Central Venous Catheter Bundle Kit ([id number]) ([id number])(CVC Bundle Kit ([id number]) ([id number])), 04/16/24 5:03:00 EDT, Stat, Quantity 1, Weight: 125, 04/16/24 5:03:00 EDT XR Chest 1 View (Portable)(Chest XR 1 View (Portable)), 04/16/24 4:52:00 EDT, 04/16/24 4:52:00 EDT,Stat, central line placed, Full code, Portable: Yes, Wheelchair Staff Member, Isolation: None, IV: Yes, Oxygen: No, Diabetes: Yes, : N/A, Wt k, [facility], [facility] Digitally Signed by ELENA GONZALEZ on 04/16/2024 05:25 AM [facility] [id number] Note ORIGINAL EXAMINATION: ONE XRAY VIEW OF [...] 04/16/2024 5:34:43 AM Ordering Provider: [facility]05-29-2024 NoteSinus rhythm RIGHT BUNDLE BRANCH BLOCK INFERIOR MYOCARDIAL INFARCTION, POSSIBLY ACUTE WARNING: DATA QUALITY MAY AFFECT INTERPRETATION Electronic Signature: NGOC MIN MD 04/16/2024 09:51:56[facility] 05-29-2024 Urology Consult note Date of Service 04/16/2024 Reason for Consultation Claire's gangrene Referring Physician Maria Elena Carmen GUN FITTER-[employer]ICAN [employer] MACHINE TENDER History of Present Illness This is a 48y/o M w/ HTN, HL, DM2 w/ neuropathy, and tobacco use who presented to [facility] ER overnight w/ a swollen, black scrotum, [...] clinda. Of note, he was admitted at [facility] from 03/08-03/11 with weakness and falls. A1c [...] personally reviewed the labs and imaging from [facility] as per HPI. Assessment/Plan Claire's Gangrene: -- [...] KAYLEEN BERNAL MD on 04/16/2024 02:24 AM [facility] [id number] Note ORIGINAL EXAMINATION: ONE XRAY VIEW OF [...] Sign Date: 04/16/2024 2:14:27 AM Ordering Provider: [facility]05-29-2024 History and physical note Date of Service [...] therapy was recommended to be discharged to correction facility for rehabilitation and strengthening which he declined and was discharged AMA. He was also evaluated at [facility] emergency department on 04/06/2024 with penile pain and swelling. He was diagnosed with balanitis and discharged with topical clotrimazole cream. Patient Marley presented to [facility] ER 04/15/2024 with complaints of [...] was transferred to the surgical ICU at [facility] under medicine service for evaluation and treatment [...] for GI prophylaxis Case discussed with on-call acid dumper Dr. Mckeon Problem List/Past Medical History Ongoing [...] MARIA ELENA CARMEN on 04/16/2024 02:29 AM [facility] [id number] Note ORIGINAL EXAMINATION: ONE XRAY VIEW OF [...] Date: 04/16/2024 12:21:49 AM [facility] Sinus tachycardia Right bundle branch block Electronic Signature: MARTÍNEZ ACUNA MD 04/15/2024 22:35:[address] [place] [address] 05-28-2024 Note ORIGINAL EXAMINATION: CT OF THE [...] Sign Date: 04/15/2024 10:03:58 PM Ordering Provider: [facility]05-19-2024 Hospital Discharge instructions Patient Education 04/06/2024 15:04:37 [...] complete blockage of the flow of urine 0120-7185 [employer]. [address] [place] [address]. All rights reserved. This information is not intended as a substitute for professional medical care. Always follow yourhealthcare professional's instructions. Follow Up Care 04/06/2024 12:11:51 With:THO YIP MD, WHILL Address: [address] [place] [phone] When:3-7 days With:Go to emergency room if symptoms worsen Address:Unknown When:2-4 days With:PHOEBE ADAM APRN-[employer]ENTRAL OFFICE INSTALLER Address: [address] [place] [phone] When:2-4 days [facility] 05-19-2024 Emergency department Discharge summary Discharge Instructions Thank you for allowing [facility] to assist you with your healthcare needs. The following is importantdischarge information regarding your hospital visit. Diagnosis from Today's Visit Balanitis What to Do Next Instructions from Your Care Team No qualifying data available. Post Acute Orders No qualifying data available. You Need to Schedule the Following Appointments Follow Up with THO YIP MD, WHILL When: When:Within 3-7 days Where:[address] [place] [phone] Follow Up with Go to emergency room if symptoms worsen When: When:Within 2-4 days Follow Up with PHOEBE ADAM APRN-[employer] CENTRAL OFFICE INSTALLER When: When:Within 2-4 days Where:[address] [facility] [place] [address]- Allergies ampicillin penicillin Medications Please ask your [...] complete blockage of the flow of urine 0663-3926 [employer]. [address] [place] [address], [place] [address]. All rights reserved. This information is not intended as a substitute for professional medical care. Always follow yourhealthcare professional's instructions. Additional Information VACCINATE! IT SAVES LIVES! Members of the community who have not yet received the COVID-19 vaccine and would like to receive it can visit one of [facility] vaccine clinics. There are many vaccine clinic locations within the [facility]. For locations and available times, please visit www.[email or web address].[place].gov/. It is important to note that some COVID mobile vaccine clinics are held outdoors and may be canceled in rainy or stormy conditions. To learn more about pediatric vaccinations (ages 5-11), we invite you to visit the [facility] webpage. https://www.[facility].org/pages/8495-Aqjik-Jsffjwrfgbq-Qyjuyctltd-Dbmjc-Oaf stions.htmlTo learn more about the COVID-19 vaccine, we invite you to visit the CDC website for a list of frequently asked questions. https://www.cdc.gov/coronavirus/2019-ncov/vaccines/faq.html [facility] Patient Portal Access Instructions: Stay connected with your healthcare team and access your personal medical information anytime with the [facility] Patient Portal. If you would like a full copy of your medical records please contact the [facility] Medical Records Department Sunday through Sunday between 8a.m. and 4:30p.m. Please follow the directions below to access the portal: 1.Access the email account you provided upon registration to the [facility].2.Look for an invitation email from [facility].3.Open the email and access the invitation link: Accept Invitation to [facility]4.Fill in the required nguyen to create your account. Sign into [email or web address] with your username and password that you [...] you will allow to register on the [facility] Patient Portal for access to your information. You can also access the [facility] Patient Portal on the [employer]. Simply click on Health Records under [employer]op[employer]Data and then click on the [employer] logo. HOW TO SAFELY DISPOSE OF PRESCRIPTION [...] Call your local pharmacy or go to http://bit.StratusLIVE/0B8He6h to find one close to you.3.Make use of household items: Use cat litter or old coffee grounds to dispose medications if other options arenot available. Mix your drugs with these household products, seal them in an airtight container andthrow it into the garbage. Call [facility]: [phone] to be sure your drugs can be [...] been reviewed and explained to me and IJOVANI CHRISTOPHER P understand my current condition and have read and understand these discharge instructions. I have received a written copy of the plan/instructions. If I have questions, I am aware that I should contact my doctor. Patient/Technology Applications Teacher Signature: Date/Time: Relationship to Patient: Witness Name/Signature: Date/Time: [facility] [id number] Note Discharge Instructions Thank you for allowing [facility] to assist you with your healthcare needs. The following is importantdischarge information regarding your hospital visit. Diagnosis from Today's Visit Balanitis What to Do Next Instructions from Your Care Team No qualifying data available. Post Acute Orders No qualifying data available. You Need to Schedule the Following Appointments Follow Up with THO YIP MD, [facility] When: When:Within 3-7 days Where:[address] [place] [phone] Follow Up with Go to emergency room if symptoms worsen When: When:Within 2-4 days Follow Up with PHOEBE ADAM APRN-[employer] CENTRAL OFFICE INSTALLER When: When:Within 2-4 days Where:[address] [place] [address]- Allergies ampicillin penicillin Medications Please ask your primary doctor or pharmacist before taking any other medication not listed, including over the counter drugs, herbal medications, vitamins and or supplements as they may interact withur home medications. What How Much When Instructions [...] complete blockage of the flow of urine 9110-1964 [employer]. [address] [place] [address], [place] [address]. All rights reserved. This information is not intended as a substitute for professional medical care. Always follow yourhealthcare professional's instructions. Additional Information VACCINATE! IT SAVES LIVES! Members of the community who have not yet received the COVID-19 vaccine and would like to receive it can visit one of [facility] vaccine clinics. There are many vaccine clinic locations within the [facility]. For locations and available times, please visit www.[email or web address].[place].gov/. It is important to note that some COVID mobile vaccine clinics are held outdoors and may be canceled in rainy or stormy conditions. To learn more about pediatric vaccinations (ages 5-11), we invite you to visit the [facility] webpage. https://www.FanX[employer].org/pages/5536-Fhvpu-Ilvhghslqru-Xkwyylkvkc-Ytemb-Hka stions.htmlTo learn more about the COVID-19 vaccine, we invite you to visit the CDC website for a list of frequently asked questions. https://www.cdc.gov/coronavirus/2019-ncov/vaccines/faq.html [facility] Patient Portal Access Instructions: Stay connected with your healthcare team and access your personal medical information anytime with the [facility] Patient Portal. If you would like a full copy of your medical records please contact the [facility] Medical Records Department Sunday through Sunday between 8a.m. and 4:30p.m. Please follow the directions below to access the portal: 1.Access the email account you provided upon registration to the hospital.2.Look for an invitation email from [facility].3.Open the email and access the invitation link: Accept Invitation to [facility]4.Fill in the required nguyen to create your account. Sign into [email or web address] with your username and password that you [...] you will allow to register on the [employer] Patient Portal for access to your information. You can also access the [employer] Patient Portal on the [employer] artemio. Simply click on Health Records under [employer] and then click on the [employer] logo. HOW TO SAFELY DISPOSE OF PRESCRIPTION [...] Call your local pharmacy or go to http://iCatapult.StratusLIVE/8S9Ji7d to find one close to you.3.Make use of household items: Use cat litter or old coffee grounds to dispose medications if other options arenot available. Mix your drugs with these household products, seal them in an airtight container andthrow it into the garbage. Call [facility]: [phone] to be sure your drugs can be [...] aware that I should contact my doctor. Patient/Technology Applications Teacher Signature: Date/Time: Relationship to Patient: Witness Name/Signature: Date/Time: [facility]05-19-2024 Note ORIGINAL EXAMINATION: 2 x-ray views [...] Date: 04/06/2024 3:50:03 PM Ordering Provider: RYAN [facility]05-15-2024 Telephone encounter Note* Telephone Encounter - Miguelina Ashford MA - 04/02/2024 2:39 PM EDT Prescription Request: Last medication check: 04/05/23 Last physical exam: 06/22/21 Next scheduled appointment: 04/09/24 Last date of [facility]ill on this medication [id number] Miscellaneous Notes* Telephone Encounter - Miguelina Ashford MA - 04/02/2024 2:39 PM EDT Prescription Request: Last medication check: 04/05/23 Last physical exam: 06/22/21 Next scheduled appointment: 04/09/24 Last date of refill on this medication [facility]/01/24 [id number] Discharge instructions Patient Education 03/11/2024 14:14:51 [...] 07/30/2013 Document Revised: 02/27/2020 Document Reviewed: 10/03/2017 [employer] Patient Education 2020 [employer]. 03/11/2024 14:14:46 Hyperglycemia Hyperglycemia Hyperglycemia occurs when [...] or polycystic ovarian syndrome (PCOS). Being of Taiwanese-South African, -Taiwanese, /, or / descent. What are the [...] these instructions at home: General instructions Take ybuz-suo-msikpww and prescription medicines only as told by [...] 05/01/2002 Document Revised: 07/23/2017 Document Reviewed: 07/23/2017 [employer] Patient Education 2020 [employer]. 03/11/2024 14:14:30 Diabetes Mellitus and Standards of Medical Care Diabetes Mellitus and Standards of Medical Care Managing diabetes (diabetes mellitus) can be complicated. Your diabetes treatment may be managed bya team of health care providers, including: A physician who specializes in diabetes (acetylene operator). A nurse practitioner or physician medical receptionist medical assistant. Nurses. A diet and meat specialist (registered dietitian). A certified medication technician (CDE). An mortgage protection specialist. A pharmacist. An eye doctor. A protection specialist (manager part). A dentist. A primary care provider. A [...] she may refer you to: A certified medication technician to manage your diabetes throughout your life, starting at diagnosis. A registered dietitian who can create or review your personal nutrition plan. An mortgage protection specialist who can discuss your activity level [...] 09/02/2010 Document Revised: 07/25/2019 Document Reviewed: 08/03/2017 [employer] Patient Education 2020 [employer]. Follow Up Care 03/08/2024 12:43:44 With:PHOEBE ADAM APRN-[employer] CENTRAL OFFICE INSTALLER Address: [address] [place] [phone]- When:5 to 7 days Comments:post-hospitalization follow-up [facility] 04-23-2024 Note Discharge Instructions Thank you for allowing [facility] to assist you with your healthcare needs. [...] Up Appointments Follow Up with PHOEBE ADAM APRN-ABEBA When Within 5 to 7 days Why: post-hospitalization follow-up Where: [address] [place] [address]- The Following Activity and Diet Have Been [...] by mouth Once a day Pickup at [facility] 03/11/24 at 0830am Changed insulin glargine (Lantus 100 units/ mL10 ml vial solution) 30 unit(s) Subcutaneous Daily at bedtime Pickup at [facility] none today Unchanged gabapentin [...] Once a day none today Pharmacy Information [facility]: [address] [place] [address] [phone] Please take this list to your next [...] 07/30/2013 Document Revised: 02/27/2020 Document Reviewed: 10/03/2017 [employer] Patient Education 2020 [employer] Hyperglycemia Hyperglycemia occurs when the level of [...] or polycystic ovarian syndrome (PCOS). Being of Taiwanese-South African, -Taiwanese, /, or / descent. What are the [...] these instructions at home: General instructions Take ycwm-zpb-cgceoyv and prescription medicines only as told by [...] 05/01/2002 Document Revised: 07/23/2017 Document Reviewed: 07/23/2017 [employer] Patient Education 2020 [employer]. Diabetes Mellitus and Standards of Medical Care Managing diabetes (diabetes mellitus) can be complicated. Your diabetes treatment may be managed bya team of health care providers, including: A physician who specializes in diabetes (acetylene operator). A nurse practitioner or physician medical receptionist medical assistant. Nurses. A diet and meat specialist (registered dietitian). A certified medication technician (CDE). An mortgage protection specialist. A pharmacist. An eye doctor. A protection specialist (manager part). A dentist. A primary care provider. A [...] she may refer you to: A certified medication technician to manage your diabetes throughout your life, starting at diagnosis. A registered dietitian who can create or review your personal nutrition plan. An mortgage protection specialist who can discuss your activity level [...] 09/02/2010 Document Revised: 07/25/2019 Document Reviewed: 08/03/2017 [employer] Patient Education 2020 [employer]. Additional Information VACCINATE! IT SAVES LIVES! Members of the community who have not yet received the COVID-19 vaccine and would like to receive it can visit one of [facility] vaccine clinics. There are many vaccine clinic locations within the [facility]. For locations and available times, please visit [email or web address].gov/. It is important to note that some COVID mobile vaccine clinics are held outdoors and may be canceled in rainy or stormy conditions. To learn more about pediatric vaccinations (ages 5-11), we invite you to visit the [facility] webpage. https://www.[facility].org/pages/7436-Orsbs-Lcjvrajgfks-Ertivnxpmv-Kajsb-Bnm stions.htmlTo learn more about the COVID-19 vaccine, we invite you to visit the CDC website for a list of frequently asked questions.https://www.cdc.gov/coronavirus/2019-ncov/vaccines/faq.html [facility] Patient Portal Access Instructions: Stay connected with your healthcare team and access your personal medical information anytime with the [facility] Patient Portal. Please follow the directions below to create your [employer] account: 1.Access the email account you provided upon registration to the hospital/physician office.2.Look for an invitation email from [facility].3.Open the email and access the invitation link: AcceptInvitation to [facility].4.Fill in the required nguyen to create your account. To access your account, visit [email or web address]. Click the blue button labeled Access Patient Portal and then log in with the username and password that you created in the steps above. You will be able to view your test results, lab results, a summary of your visits, upcoming appointments and more. There is also a convenient messaging option where you can send secure messages to your p Hydro[employer]Run[employer]. In addition, you will have the ability to download any documents or summaries to your computer and/or send the information securely to a physician. Remember that your healthcare information is confidential, so carefully consider who you will allowto register on the [facility] Patient Portal for access to your information. You can also access the [facility] Patient Portal on the [employer] artemio. Simply click on Patient Portal and then log into your account. If you would like to receive a full copy of your medical records, please contact the [facility] Medical Records Department by calling [phone], Sunday through Sunday between 8 a.m. and [...] Call your local pharmacy or go to http://[email or web address] to find one close to you.3.Make use of household items: Use cat litter or old coffee grounds to dispose medications if other options arenot available. Mix your drugs with these household products, seal them in an airtight container andthrow it into the garbage. Call [facility]: [phone] to be sure your drugs can be [...] aware that I should contact my doctor. 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 Patient was seen again by PT and OTwho felt that patient would benefit from a rehab stay in a SNF. For now, patient is agreeable with this and would like to go to [facility] in [place]. The social service liaison sent a referral already but has not [...] 26 - back to baseline today. Repeat BMPin [...] skilled stay - patient agreeable right now. emergency services professional following for discharge planning needs. 5. Diabetes [...] patient, discussed plan of care with nursing, child protective services social worker and therapy, collaborating with physician, and documenting in chart. Digitally Signed by BRAVO PEOPLES on 03/10/2024 04:17 PM [facility]04-21-2024 Note Date of Service 03/09/2024 Chief Complaint [...] Result Date: March 08, 2024 Verified By: SHARMILA, KELVIN W DO CLINICAL STATEMENT: IMPRESSION: No definite acute [...] recommending skilled stay but patient not agreeable. emergency services professional following for discharge planning needs. 5. Diabetes [...] by BRAVO PEOPLES on 03/09/2024 02:37 PM [facility]04-21-2024 Nurse Progress note Pt ambulating with therapy, states his legs suddenly gave out. Therapy caught patient before fall. Assisted back to bed with 4 staff members. Pt denies pain. Digitally Signed by Nataly Del Rio RN on 03/09/2024 09:44 AM [facility]04-20-2024 Note Date of Service 03/08/2024 Chief Complaint slid out of shower chair. glucos over 500 History of Present Illness Patient is a 48-year-old male, who follows with Phoebe Adam CNP with a past medical history significant for type 2 diabetes, hypertension, hyperlipidemia, neuropathy, Charcot foot, and tobacco abuse,presents to [facility] emergency department with the chief complaint [...] PT and OT to evaluate and treat. emergency services professional following for discharge planning needs. 5. Diabetes [...] by BRAVO PEOPLES on 03/08/2024 05:03 PM [facility]04-20-2024 Evaluation + Plan noteExtracted from: Title:History and Physical Author:BRAVO PEOPLES Date:03/08/24 1. Acute kidney injury Acute, on [...] PT and OT to evaluate and treat. emergency services professional following for discharge planning needs. 5. Diabetes [...] collaborating with physician, and documenting in chart. [facility] 04-20-2024 Note ORIGINAL EXAMINATION: THREE XRAY [...] Sign Date: 03/08/2024 1:40:07 PM Ordering Provider: [facility]04-20-2024 Note ORIGINAL EXAMINATION: ONE XRAY VIEW OF [...] Sign Date: 03/08/2024 1:27:14 PM Ordering Provider: [facility]04-20-2024 Note Sinus tachycardia Right bundle branch block Electronic Signature: CATHERINE ARREDONDO DO 03/08/2024 13:14:[address] [place] [address] 04-01-2024 Telephone encounter Note* Telephone Encounter - MOIRA Samuels CNP - 02/18/2024 9:55 AM EDT Reviewed chart. Refill appropriate. [facility]. [facility]biki72-30-3386 Miscellaneous Notes* Telephone Encounter - MOIRA Samuels CNP - 02/18/2024 9:55 AM EDT Reviewed chart. Refill appropriate. RX sent. * Telephone Encounter - Yadira Uribe MA - 02/18/2024 9:45 AM EDT Prescription Request: Last medication check: 04/05/2023 Last physical exam: 06/22/2021 Next scheduled appointment: 02/25/2024 Last date of refill on this medication: 11/05/[address] [facility]04-01-2024 Telephone encounter Note* Telephone Encounter - Yadira Uribe MA - 02/18/2024 9:45 AM EDT Prescription Request: Last medication check: 04/05/2023 Last physical exam: 06/22/2021 Next scheduled appointment: 02/25/2024 Last date of refill on this medication: 11/05/23 [facility]Ksbgzq30-28-8574 Telephone encounter Note* Telephone Encounter - Yadira Uribe MA - 02/05/2024 3:02 PM EDT Prescription Request: Last medication check: 04/05/23 Last physical exam: 06/22/21 Next scheduled appointment: 02/18/24 Last date of refill on this medication 12/17/23 [facility] EastJtckxo16-54-4507 Miscellaneous Notes* Telephone Encounter - Yadira Uribe MA - 02/05/2024 3:02 PM EDT Prescription Request: Last medication check: 04/05/23 Last physical exam: 06/22/21 Next scheduled appointment: 02/18/24 Last date of refill on this medication 12/17/[address] [facility]03-19-2024 Telephone encounter Note* Telephone Encounter - MOIRA Samuels CNP - 02/05/2024 12:57 PM EDT Reviewed chart. Refill appropriate. RX sent. [facility] [id number] Miscellaneous Notes* Telephone Encounter - MOIRA Samuels CNP - 02/05/2024 12:57 PM EDT Reviewed chart. Refill appropriate. RX sent. * Telephone Encounter - Miguelina Ashford MA - 02/05/2024 11:00 AM EDT Prescription Request: Last medication check: 04/05/23 Last physical exam: 06/22/21 Next scheduled appointment: 02/18/24 Last date of refill on this medication 08/15/23 30 day 5 refills [facility]Tddfac27-19-5476 Telephone encounter Note* Telephone Encounter - Miguelina Ashford MA - 02/05/2024 11:00 AM EDT Prescription Request: Last medication check: 04/05/23 Last physical exam: 06/22/21 Next scheduled appointment: 02/18/24 Last date of refill on this medication 08/15/23 30 day 5 refills [facility]Nimwiv55-67-0231 Telephone encounter Note* Telephone Encounter - MOIRA Peralta CNP - 01/21/2024 12:33 PM EST Rx sent for small supply. Follow up as scheduled. [facility] EastWcbzuy78-49-8533 Miscellaneous Notes* Telephone Encounter - MOIRA Peralta [...] on this medication 07/20/[address] [facility]03-04-2024 Telephone encounter Note* Telephone Encounter - Kasey Hankins - 01/21/2024 10:40 AM EST Prescription Request: Last medication check: 04/05/23 Last physical exam: 06/22/21 Next scheduled appointment: was scheduled tomorrow but canceled now on 01/28/24 Last date of refill on this medication 07/20/23 [facility] EastCzvklf0061 Telephone encounter Note* Telephone Encounter - Vishal Kingsley LPN - 01/01/2024 11:55 AM EST Prescription Request: Last medication check: 04/05/23 Last physical exam: 06/22/21 Next scheduled appointment: not found Last date of refill on this medication 10/03/23 #60 2 refills [facility]02-13-2024 Miscellaneous Notes* Telephone Encounter - Vishal Kingsley LPN - 01/01/2024 11:55 AM EST Prescription Request: Last medication check: 04/05/23 Last physical exam: 06/22/21 Next scheduled appointment: not found Last date of refill on this medication 10/03/23 #60 [address] in [address] [facility]01-29-2024 Telephone encounter Note* Telephone Encounter - MOIRA Peralta CNP - 12/17/2023 8:45 AM EST Rx sent. Needs to reschedule his diabetic maintenance visit DIEGO. [facility] EastAizpcu46-69-0627 Miscellaneous Notes* Telephone Encounter - MOIRA Peralta CNP - 12/17/2023 8:45 AM EST Rx sent. Needs to reschedule his diabetic maintenance visit DIGEO. * Telephone Encounter - Vishal Kingsley LPN - 12/17/2023 6:55 AM EST Prescription Request: Last medication check: 04/05/23 Last physical exam: 06/22/21 Next scheduled appointment: not found Last date of refill on this medication 07/30/23 3 ml 1 [address] [facility]01-29-2024 Telephone encounter Note* Telephone Encounter - Vishal Kingsley LPN - 12/17/2023 6:55 AM EST Prescription Request: Last medication check: 04/05/23 Last physical exam: 06/22/21 Next scheduled appointment: not found Last date of refill on this medication 07/30/23 3 ml 1 refill [facility] [id number] Telephone encounter Note* Telephone Encounter - MOIRA Samuels CNP - 10/18/2023 2:56 PM EST Reviewed chart. Refill appropriate. RX sent. [place] [id number] Miscellaneous Notes* Telephone Encounter - MOIRA Samuels CNP - 10/18/2023 2:56 PM EST Reviewed chart. Refill appropriate. RX sent. * Telephone Encounter - Yadira Uribe MA - 10/18/2023 2:17 PM EST Prescription Request: Last medication check: 04/05/23 Last physical exam: 06/22/21 Next scheduled appointment: 10/30/23 CSA 01/08/23, UDS 05/16/22 Last date of refill on this medication 09/19/23 documented in this [facility]SS[facility] HospitalIqtcsl25-10-0559 Telephone encounter Note* Telephone Encounter - Yadira Uribe MA - 10/18/2023 2:17 PM EST Prescription Request: Last medication check: 04/05/23 Last physical exam: 06/22/21 Next scheduled appointment: 10/30/23 CSA 01/08/23, UDS 05/16/22 Last date of refill on this medication 09/19/23 [place] [id number] Telephone encounter Note* Telephone Encounter - MOIRA Samuels CNP - 10/03/2023 12:11 PM EST Reviewed chart. Refill appropriate. RX sent. [id number] Miscellaneous Notes* Telephone Encounter - MOIRA Samuels CNP - 10/03/2023 12:11 PM EST Reviewed chart. Refill appropriate. RX sent. * Telephone Encounter - Miguelina Ashford MA - 10/03/2023 11:19 AM EST Prescription Request: Last medication check: 04/05/23 Last physical exam: 06/22/21 Next scheduled appointment: 10/30/23 Last date of refill on this medication 07/12/23 1 month 2 refills documented in this [facility]SS[facility] HospitalGsqvrk83-10-2656 Telephone encounter Note* Telephone Encounter - Miguelina Ashford MA - 10/03/2023 11:19 AM EST Prescription Request: Last medication check: 04/05/23 Last physical exam: 06/22/21 Next scheduled appointment: 10/30/23 Last date of refill on this medication 07/12/23 1 month 2 refills [facility] EastJwpzrm33-71-1402 Telephone encounter Note* Telephone Encounter - MOIRA Samuels CNP - 08/27/2023 8:50 AM EDT Reviewed chart. Refill appropriate. RX sent. [facility] EastQdnklw28-03-0848 Miscellaneous Notes* Telephone Encounter - MOIRA Samuels CNP - 08/27/2023 8:50 AM EDT Reviewed chart. Refill appropriate. RX sent. * Telephone Encounter - Miguelina Ashford MA - 08/27/2023 7:28 AM EDT Prescription Request: Last medication check: 04/05/23 Last physical exam: 06/22/21 Next scheduled appointment: none Last date of refill on this medication 07/05/23 4 pens [address] [facility] [address] [facility]10-09-2023 Telephone encounter Note* Telephone Encounter - Miguelina Ashford MA - 08/27/2023 7:28 AM EDT Prescription Request: Last medication check: 04/05/23 Last physical exam: 06/22/21 Next scheduled appointment: none Last date of refill on this medication 07/05/23 4 pens 2 refills [facility] EastOzroih06-92-2991 Telephone encounter Note* Telephone Encounter - Yadira Uribe MA - 08/15/2023 2:14 PM EDT Prescription Request: Last medication check: 04/05/23 Last physical exam: 06/22/21 Next scheduled appointment: none Last date of refill on this medication 03/20/2023 [facility] EastHqqplt97-05-6321 Miscellaneous Notes* Telephone Encounter - Yadira Uribe MA - 08/15/2023 2:14 PM EDT Prescription Request: Last medication check: 04/05/23 Last physical exam: 06/22/21 Next scheduled appointment: none Last date of refill on this medication 03/20/[address] [facility]09-15-2023 Telephone encounter Note* Telephone Encounter - Alexa Watt - 08/03/2023 10:37 AM EDT No message for patient [facility] EastKndhog16-00-8056 Miscellaneous Notes* Telephone Encounter - Alexa Watt - 08/03/2023 10:37 AM EDT No message for patient * Telephone Encounter - Lakesha Bai - 07/30/2023 10:29 AM EDT Name of caller: Gurinder Contact phone number: [phone] Relationship to Patient: patient Provider: Dr. Jackson [...] return their call: No documented in this encounterSSub[facility] & Brentwood HospitalLebipe44-62-1277 Telephone encounter Note* Telephone Encounter - MOIRA Samuels CNP - 07/30/2023 4:22 PM EDT Reviewed chart. Refill appropriate. RX sent. [facility] EastYxfpfv82-85-9754 Miscellaneous Notes* Telephone Encounter - MOIRA Samuels CNP - 07/30/2023 4:22 PM EDT Reviewed chart. Refill appropriate. RX sent. * Telephone Encounter - Rae Hernandez MA - 07/30/2023 2:57 PM EDT Prescription Request: Last medication check: 04/05/23 Last physical exam: 06/22/21 Next scheduled appointment: none Last date of refill on this medication 07/05/23 3ml 1 refill documented in this encounterSS[facility] & Brent[facility] HospitalZedkjb54-83-7391 Telephone encounter Note* Telephone Encounter - Rae Hernandez MA - 07/30/2023 2:57 PM EDT Prescription Request: Last medication check: 04/05/23 Last physical exam: 06/22/21 Next scheduled appointment: none Last date of refill on this medication 07/05/23 3ml 1 refill [place] [id number] Telephone encounter Note* Telephone Encounter - Lakesha Bai - 07/30/2023 10:29 AM EDT Name of caller: Gurinder Contact phone number: [phone] Relationship to Patient: patient Provider: Dr. Jackson Practice: [facility] Chief Complaint/Reason for Call: The patient is returning a call to Alexa he states she called him on 07/27/2023. I didn't see a message from Alexa for the patient. Please advise. Best time of day caller can be reached: Any Patient advised that office/PCP has 24-48 business hours to return their call: No [facility] EastJqrrzu55-72-1603 Telephone encounter Note* Telephone Encounter - Alexa Watt - 07/26/2023 8:45 AM EDT Called and LM for patient----inform patient he needs to schedule with endocrinology for DM. [place] [id number] Miscellaneous Notes* Telephone Encounter - Alexa Watt - 07/26/2023 8:45 AM EDT Called and LM for patient----inform patient he needs to schedule with endocrinology for DM. * Telephone Encounter - Phoebe Adam APRN - [facility] - 07/20/2023 12:03 PM EDT Rx sent. Reminder he still needs to schedule an appointment with endocrinology for his diabetes. * Telephone Encounter - Rae Hernandez MA - 07/20/2023 11:23 AM EDT Prescription Request: Last medication check: 04/05/23 Last physical exam: 06/22/21 Next scheduled appointment: none Last date of refill on this medication 01/08/23 90 days 1 [address] in [facility]09-01-2023 Telephone encounter Note* Telephone Encounter - MOIRA Peralta CNP - 07/20/2023 12:03 PM EDT Rx sent. Reminder he still needs to schedule an appointment with endocrinology for his diabetes. [facility] EastByngcs89-72-3009 Miscellaneous Notes* Telephone Encounter - MOIRA Peralta [...] 90 days 1 [address] [facility] [address] [facility]09-01-2023 Telephone encounter Note* Telephone Encounter - Rae Hernandez MA - 07/20/2023 11:23 AM EDT Prescription Request: Last medication check: 04/05/23 Last physical exam: 06/22/21 Next scheduled appointment: none Last date of refill on this medication 01/08/23 90 days 1 refill [place] [id number] Telephone encounter Note* Telephone Encounter - MOIRA Samuels CNP - 07/12/2023 11:59 AM EDT Reviewed chart. Refill appropriate. RX sent. [address]ewypr29-29-1206 Miscellaneous Notes* Telephone Encounter - MOIRA Samuels CNP - 07/12/2023 11:59 AM EDT Reviewed chart. Refill appropriate. RX sent. * Telephone Encounter - Yadira Uribe MA - 07/12/2023 11:31 AM EDT Prescription Request: Last medication check: 04/05/23 Last physical exam: 06/22/21 Next scheduled appointment: none Last date of refill on this medication 04/09/23 documented in this encounterSAsh[place] [id number] Telephone encounter Note* Telephone Encounter - Yadira Uribe MA - 07/12/2023 11:31 AM EDT Prescription Request: Last medication check: 04/05/23 Last physical exam: 06/22/21 Next scheduled appointment: none Last date of refill on this medication 04/09/23 [place] [id number] Hospital Discharge instructions Patient Education 07/07/2023 19:57:24 [...] problems caused by scarring or long-term infections. 7631-5601 [employer]. [address] [place] [address]. All rights reserved. This information is not [...] to keep medicine down Weakness or dizziness 2697-2854 [employer]. [address] [place] [address]. All rights reserved. This information is not intended as a substitute for professional medical care. Always follow yourhealthcare professional's instructions. Follow Up Care 07/07/2023 18:18:59 With:ARTIE JACKSON MD Address: [address] [place] [address]- When:2-4 days Comments:Schedule appointment as soon as possible [facility] 08-19-2023 Emergency department Discharge summary Discharge Instructions Thank you for allowing [facility] to assist you with your healthcare needs. [...] as soon as possible Where: [address] [place] [address]- Allergies ampicillin penicillin Medications Please ask your [...] problems caused by scarring or long-term infections. 5382-7634 [employer]. [address] [place] [address], [place] [address]. All rights reserved. This information is not [...] to keep medicine down Weakness or dizziness 9023-2436 [employer]. [address] [place] [address], [place] [address]. All rights reserved. This information is not intended as a substitute for professional medical care. Always follow yourhealthcare professional's instructions. Additional Information VACCINATE! IT SAVES LIVES! Members of the community who have not yet received the COVID-19 vaccine and would like to receive it can visit one of [facility] vaccine clinics. There are many vaccine clinic locations within the [facility]. For locations and available times, please visit www.gettheshot.coronavirus.[place].gov/. It is important to note that some COVID mobile vaccine clinics are held outdoors and may be canceled in rainy or stormy conditions. To learn more about pediatric vaccinations (ages 5-11), we invite you to visit the [facility] webpage. https://www.[facility].org/pages/9854-Uzkex-Xphmeskkcnd-Eyvmjsbphu-Qtdhk-Yqa stions.htmlTo learn more about the COVID-19 vaccine, we invite you to visit the CDC website for a list of frequently asked questions. https://www.cdc.gov/coronavirus/2019-ncov/vaccines/faq.html [facility] Patient Portal Access Instructions: Stay connected with your healthcare team and access your personal medical information anytime with the [facility] [employer] [employer] Patient Portal. If you would like a full copy of your medical records please contact the [facility] Medical Records Department Sunday through Sunday between 8a.m. and 4:30p.m. Please follow the directions below to access the portal: 1.Access the email account you provided upon registration to the hospital.2.Look for an invitation email from [facility].3.Open the email and access the invitation link: Accept Invitation to [employer]4.Fill in the required nguyen to create your [...] you will allow to register on the [facility] Patient Portal for access to your information. You can also access the [employer] Patient Portal on the [employer]. Simply click on Health Records under Campus [employer] and then click on the [employer] logo. [...] Call your local pharmacy or go to [email or web address] to find one close to you.3.Make use of household items: Use cat litter or old coffee grounds to dispose medications if other options arenot available. Mix your drugs with these household products, seal them in an airtight container andthrow it into the garbage. Call [facility]: [phone] to be sure your drugs can be [...] aware that I should contact my doctor. 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 gonorrhoeae PCR 07/07/23 * Urine Culture 07/07/23 [facility] 08-17-2023 Telephone encounter Note* Telephone Encounter - Rae Hernandez MA - 07/05/2023 2:37 PM EDT Prescription Request: Last medication check: 04/05/23 Last physical exam: 06/22/21 Next scheduled appointment: none Last date of refill on this medication 06/06/23 3mL 1 [facility]ill [facility]Luhznj31-47-9366 Miscellaneous Notes* Telephone Encounter - Rae Hernandez MA - 07/05/2023 2:37 PM EDT Prescription Request: Last medication check: 04/05/23 Last physical exam: 8/4/21 Next scheduled appointment: none Last date of refill on this medication 06/06/23 3mL 1 refill documented in this [place] [address]-15-2023 Telephone encounter Note* Telephone Encounter - MOIRA Peralta CNP - 07/03/2023 5:[address] you [address] Jackson. [address]Gnvmsk72-03-0623 Miscellaneous Notes* Telephone Encounter - MOIRA Peralta [...] sign order for culture. documented in this [address]15-2023 Telephone encounter Note* Telephone Encounter - Lorenza Parada MA - 07/03/2023 11:52 AM EDT Message released to patient as written. Patient's further questions if applicable: no Were all questions from office addressed or relayed to the patient from encounter: Yes [address]Rngjnl93-02-0711 Miscellaneous Notes* Telephone Encounter - Lorenza Parada [...] and will treat accordingly. [facility] HospitalVanuhn84-45-9202 Telephone encounter Note* Telephone Encounter - Kasey Hankins - 07/03/2023 11:41 AM EDT Called patient no answer no VM. Sent mychart message. Results were Seen by proxy Lisset Curiel on 07/03/2023 9:46 AM [facility]Zriyyz99-01-7253 Telephone encounter Note* Telephone Encounter - Kasey Hankins - 07/03/2023 11:28 AM EDT ----- Message from Artie Jackson MD sent at 07/03/2023 9:46 AM EDT ----- Urine with some blood, lots of protein, moderate amount of leukocytes, and lots of sugar, sent for culture and will treat accordingly. [facility] EastObwgnb09-18-0596 Telephone encounter Note* Telephone Encounter - Artie Jackson MD - 07/03/2023 9:43 AM EDT Order signed [facility] EastCuamct81-90-1238 Telephone encounter Note* Telephone Encounter - Rae Hernandez MA - 07/03/2023 8:54 AM EDT Patient came in for UA due to symptoms of UTI. It is positive for moderate WBC's, large blood, 2,000+ glucose, large protein. Please sign order for culture. [facility] EastTuyqii08-53-4597 Telephone encounter Note* Telephone Encounter - MOIRA Peralta CNP - 05/18/2023 12:56 PM EDT Noted. [facility] EastStylwa27-62-0549 Miscellaneous Notes* Telephone Encounter - OMIRA Peralta CNP - 05/18/2023 12:56 PM EDT Noted. * Telephone Encounter - Vikki Cerna - 05/18/2023 12:32 PM EDT Name of caller: Isai Contact phone number: [phone] Relationship to Patient: patient Provider: Dr Jackson Practice: [facility] Chief Complaint/Reason for Call: Pt returned call about Silvestre and stated he is completely out. I [...] return their call: No documented in this encounterSS[facility] & [facility] HospitalLjpvjp23-10-1030 Telephone encounter Note* Telephone Encounter - Vikki Cerna - 05/18/2023 12:32 PM EDT Name of caller: Isai Contact phone number: [phone] Relationship to Patient: patient Provider: Dr Jackson Practice: [facility] Chief Complaint/Reason for Call: Pt returned call about Silvestre and stated he is completely out. I [...] business hours to return their call: No [facility] EastRmwuhw34-23-0679 Telephone encounter Note* Telephone Encounter - MOIRA Samuels CNP - 05/14/2023 12:45 PM EDT Reviewed chart. Refill appropriate. RX sent. [facility] EastHxzozb52-51-5435 Miscellaneous Notes* Telephone Encounter - MOIRA Samuels CNP - 05/14/2023 12:45 PM EDT Reviewed chart. Refill appropriate. RX sent. * Telephone Encounter - Yadira Uribe MA - 05/14/2023 11:10 AM EDT Prescription Request: Last medication check: 04/05/23 Last physical exam: 06/22/21 Next scheduled appointment: none Last date of refill on this medication 04/13/[address] [facility]06-26-2023 Telephone encounter Note* Telephone Encounter - Yadira Uribe MA - 05/14/2023 11:10 AM EDT Prescription Request: Last medication check: 04/05/23 Last physical exam: 06/22/21 Next scheduled appointment: none Last date of refill on this medication 04/13/23 [place] [id number] History of Present illness Narrative* MOIRA Samuels CNP - 05/09/2023 7:26 AM EDT eGFR 22, STOP metformin and fenofibrate as contraindicated documented in this [place] [address]-19-2023 Telephone encounter Note* Telephone Encounter - MOIRA Samuels CNP - 05/07/2023 10:17 AM EDT Reviewed chart. Refill appropriate. RX sent. [address]Zuswza80-32-9328 Miscellaneous Notes* Telephone Encounter - MOIRA Samuels CNP - 05/07/2023 10:17 AM EDT Reviewed chart. Refill appropriate. RX sent. * Telephone Encounter - Miguelina Ashford MA - 05/07/2023 9:51 AM EDT Prescription Request: Last medication check: 04/05/23 Last physical exam: 06/22/21 Next scheduled appointment: none Last date of refill on this medication 11/14/22 90 day 1 refill documented in [facility]06-19-2023 Telephone encounter Note* Telephone Encounter - Miguelina Ashford MA - 05/07/2023 9:51 AM EDT Prescription Request: Last medication check: 04/05/23 Last physical exam: 06/22/21 Next scheduled appointment: none Last date of refill on this medication 11/14/22 90 day 1 refill [facility] EastImvkws69-76-7167 Telephone encounter Note* Telephone Encounter - Yadira Uribe MA - 04/20/2023 9:59 AM EDT Prescription Request: Last medication check: 04-05-23 Last physical exam: 06-22-21 Next scheduled appointment: 05-03-23 Last date of refill on this medication 01/08/2023 [facility] EastMsvedv29-14-2453 Miscellaneous Notes* Telephone Encounter - Yadira Uribe MA - 04/20/2023 9:59 AM EDT Prescription Request: Last medication check: 04-05-23 Last physical exam: 06-22-21 Next scheduled appointment: 05-03-23 Last date of refill on this medication 01/08/[address] [facility]05-19-2023 Telephone encounter Note* Telephone Encounter - Rae Hernandez MA - 04/06/2023 10:58 AM EDT Patient notified and voiced understanding, will have girlfriend my chart his levels over every 3 days and get scheduled with nephrology. He is scheduled in 4 weeks for labs to recheck potassium. Please place order. [facility] Ooysoj60-59-1682 Telephone encounter Note* Telephone Encounter - Rae [...] to recheck potassium level in 4 weeks. [facility] EastOdndgf46-88-0031 Miscellaneous Notes* Telephone Encounter - Rae Hernandez [...] level in 4 [address] [facility] [address] [facility]05-02-2023 Miscellaneous Notes* Telephone Encounter - Rae Hernandez MA - 03/20/2023 9:50 AM EDT Prescription Request: Last medication check: 01/08/23 Last physical exam: 06/22/21 Next scheduled appointment: 04/06/23 Last date of refill on this medication 09/21/22 30 days 5 [address] [facility] [address] [facility]05-02-2023 Telephone encounter Note* Telephone Encounter - Rae Hernandez MA - 03/20/2023 9:50 AM EDT Prescription Request: Last medication check: 01/08/23 Last physical exam: 06/22/21 Next scheduled appointment: 04/06/23 Last date of refill on this medication 09/21/22 30 days 5 refills [facility] EastDgvgga71-08-6199 Telephone encounter Note* Telephone Encounter - MOIRA Peralta CNP - 03/19/2023 4:26 PM EDT Rx sent. Follow up as scheduled. [facility] EastCbyxcp13-17-6029 Miscellaneous Notes* Telephone Encounter - MOIRA Peralta CNP - 03/19/2023 4:26 PM EDT Rx sent. Follow up as scheduled. * Telephone Encounter - Rae Hernandez MA - 03/19/2023 4:09 PM EDT Prescription Request: Last medication check: 01/08/23 Last physical exam: 06/22/21 Next scheduled appointment: 04/06/23 Last date of refill on this medication 01/01/23 [address] [facility]05-01-2023 Telephone encounter Note* Telephone Encounter - Rae Hernandez MA - 03/19/2023 4:09 PM EDT Prescription Request: Last medication check: 01/08/23 Last physical exam: 06/22/21 Next scheduled appointment: 04/06/23 Last date of refill on this medication 01/01/23 120 pads [facility] EastJqfjcr58-03-8870 Telephone encounter Note* Telephone Encounter - Miguelina Ashford MA - 01/23/2023 6:53 AM EST Prescription Request: Last medication check: 01/08/23 Last physical exam: 06/22/21 Next scheduled appointment: 04/06/23 CSA on file (date): na Last urine drug screen: na Last date of refill on this medication 01/08/23 3ml 1 refill [facility] EastTdxtcn99-89-8200 Miscellaneous Notes* Telephone Encounter - Miguelina Ashford MA - 01/23/2023 6:53 AM EST Prescription Request: Last medication check: 01/08/23 Last physical exam: 06/22/21 Next scheduled appointment: 04/06/23 CSA on file (date): na Last urine drug screen: na Last date of refill on this medication 01/08/23 3ml [address] [facility]03-06-2023 Telephone encounter Note* Telephone Encounter - Phoebe Adam APRN - OLI - 01/22/2023 2:27 PM EST Rx sent. Follow up as scheduled. [facility] EastVdltsw16-63-0116 Miscellaneous Notes* Telephone Encounter - MOIRA Peralta [...] 30 day no refill documented in this encounterSS[facility] & [facility] HospitalNfgesf07-35-7272 Telephone encounter Note* Telephone Encounter - Montserrat Ramos - 01/22/2023 1:43 PM EST Message released to patient as written. Called Gurinder Left a message to return call. Please let him know that we referred him to a retina specialist, their phone number is [phone]. Dr. Mccarthy reviewed his chart and would like him to see them first due to the severity of his diabetes, she thinks she would just end up referring him there anyhow. Patient's further questions if applicable: No Were all questions from office addressed or relayed to the patient from encounter: Yes [facility] EastZqdewf34-50-6152 Miscellaneous Notes* Telephone Encounter - Montserrat Ramos - 01/22/2023 1:43 PM EST Message released to patient as written. Called Gurinder Left a message to return call. Please let him know that we referred him to a retina specialist, their phone number is [phone]. Dr. Mccarthy reviewed his chart and would [...] a retina specialist, their phone number is [phone]. Dr. Mccarthy reviewed his chart and would like him to see them first due to the severity of his diabetes, she thinks she would just end up referring him there anyhow. * Telephone Encounter - MOIRA Peralta CNP - 01/22/2023 1:18 PM EST Noted. Thank you for clarifying. New referral placed. Please notify Gurinder. [facility] [address] [address] (FAX) * Telephone Encounter - Yadira Uribe MA - 01/22/2023 1:09 PM EST Called them back, Dr. Mccarthy reviewed his chart and said due to the severity of his Diabetes she would rather he go straight to a retina specialist instead of seeing her first. They recommended [facility] [place]-they have an office on [facility], phone number is [phone]. * Telephone Encounter - MOIRA Peralta CNP - 01/22/2023 12:30 PM EST Do we know why? Is his insurance not covered there? * Telephone Encounter - Montserratarya Ramos - 01/22/2023 10:06 AM EST Name of caller: [employer]. Contact phone number: [phone] Relationship to Patient: [facility]. Provider: Phoebe URENA Practice: [facility] Chief Complaint/Reason for Call: [facility]. Calling an states that the patient willhave to see another provider. They wanted to inform Phoebe URENA, about this. Please advise. Best time of day caller can be reached: any Patient advised that office/PCP has 24-48 business hours to return their call: N/A documented in this encounterSS[facility] & Brentwood HospitalJqhejg41-08-4100 Telephone encounter Note* Telephone Encounter - Yadira Uribe MA - 01/22/2023 1:24 PM EST Called Gurinder, Left a message to return call. Please let him know that we referred him to a retina specialist, their phone number is [phone]. Dr. Mccarthy reviewed his chart and would like him to see them first due to the severity of his diabetes, she thinks she would just end up referring him there anyhow. [facility] EastUiaanm46-18-8052 Telephone encounter Note* Telephone Encounter - MOIRA Peralta CNP - 01/22/2023 1:18 PM EST Noted. Thank you for clarifying. New referral placed. Please notify Gurinder. [facility] [address] [address] (FAX) [facility] EastAtiduv51-72-0914 Telephone encounter Note* Telephone Encounter - Yadira Uribe MA - 01/22/2023 1:09 PM EST Called them back, Dr. Mcacrthy reviewed his chart and said due to the severity of his Diabetes she would rather he go straight to a retina specialist instead of seeing her first. They recommended [facility]-they have an office on [address], phone number is [phone]. [facility]Jkvyzc63-68-2331 Telephone encounter Note* Telephone Encounter - MOIRA Peralta CNP - 01/22/2023 12:30 PM EST Do we know why? Is his insurance not covered there? [facility] EastJjeipz65-24-0280 Telephone encounter Note* Telephone Encounter - Montserrat Ramos - 01/22/2023 10:06 AM EST Name of caller: [facility]. Contact phone number: [phone] Relationship to Patient: [facility]. Provider: Phoebe URENA Practice: [facility] Chief Complaint/Reason for Call: [facility]. Calling an states that the patient willhave to see another provider. They wanted to inform Phoebe URENA, about this. Please advise. Best time of day caller can be reached: any Patient advised that office/PCP has 24-48 business hours to return their call: N/A [place] [address]Mhbsfx46-21-6844 Telephone encounter Note* Telephone Encounter - Miguelina Ashford MA - 01/22/2023 7:09 AM EST Prescription Request: Last medication check: 01/08/23 Last physical exam: 06/22/21 Next scheduled appointment: 04/06/23 CSA on file (date): na Last urine drug screen: na Last date of refill on this medication: 08/28/22 30 day no refill [facility]Oqmdyl76-28-6233 Telephone encounter Note* Telephone Encounter - MOIRA Peralta CNP - 01/08/2023 11:37 AM EST Rx sent. [address]Dturhb80-15-0853 Miscellaneous Notes* Telephone Encounter - MOIRA Peralta [...] 100 strips 1 refill documented [facility]02-20-2023 History of Present illness Narrative* MOIRA Peralta CNP - 01/08/2023 10:00 AM EST Images from the original note were not included. [facility] [address] [address] Dept: [phone] Dept Loc: [phone] HPI: Gurinder Hahn is a 47 y.o. [...] referral today with Dr. Rae Patel in [place]) Dental exam current (within one year): No - reminded to schedule Weight trend: stable Prior visit with special education resource teacher: No Current diet: in general, an unhealthy [...] polyneuropathy, with long-term current use of insulin ([facility]) ([facility]) - CBC - Comprehensive metabolic panel - [...] polyneuropathy associated with type 2 diabetes mellitus ([facility]) ([facility]) - CBC - Comprehensive metabolic panel - [...] signed today. 3. Diabetes mellitus with proteinuria ([facility]/HCC) ([facility]) - CBC - Comprehensive metabolic panel - [...] Discussed importance of following up with a statement clerk. Will check levels today and refer accordingly. 4. Encounter for diabetic foot exam ([facility]) - Diabetes Foot Exam 5. Essential hypertension - CBC - Comprehensive metabolic panel - Stable with Lisinopril. Will continue current treatment plan. 6. Hyperlipidemia LDL goal <70 - [facility] - Comprehensive metabolic panel - Lipid panel - rosuvastatin (Crestor) 10 MG tablet; Take 1 tablet (10 mg) by mouth daily., Starting 01/08/2023, Normal - Stable with Rosuvastatin. Will continue current treatment plan. 7. Cigarette nicotine dependence without complication - [facility] - Comprehensive metabolic panel - Encouraged smoking cessation. 8. Class 2 obesity due to excess calories without serious comorbidity with body mass index (BMI) of38.0 to 38.9 in adult - [facility] - Comprehensive metabolic panel - Encouraged [...] of Visits Requested: 1 Diabetes Foot Exam MOIRA Peralta CNP 01/08/2023 10:31 AM documented [facility]02-20-2023 Telephone encounter Note* Telephone Encounter - Miguelina Ashford MA - 01/08/2023 9:49 AM EST Prescription Request: Last medication check: 01/08/23 Last physical exam: 06/22/21 Next scheduled appointment: 01/08/23 CSA on file (date): na Last urine drug screen: na Last date of refill on this medication 10/02/22 100 strips 1 [address]ill [address]Fakwsu50-08-9572 Telephone encounter Note* Telephone Encounter - MOIRA Peralta CNP - 01/01/2023 12:46 PM EST Rx sent with no refills. Follow up as scheduled. [address]Xbjzqo68-80-0036 Miscellaneous Notes* Telephone Encounter - MOIRA Peralta [...] on this medication: 05/24/2022 documented in this [place] [address]-13-2023 Telephone encounter Note* Telephone Encounter - Yadira Uribe MA - 01/01/2023 8:13 AM EST Prescription Request: Last medication check: 07/17/22 Last physical exam: 06/22/2021 Next scheduled appointment: none-needs scheduled for physical, called patient, scheduled for next Sunday with Phoebe. Last date of refill on this medication: 05/24/2022 [facility]Tszkjk14-17-4559 History of Present illness Narrative* Tu Goetz MD - 12/22/2022 2:15 PM EST Images from the original note were not included. [facility] [address] [address] Dept: [phone] Dept Gurinder Raza Jovani [phone] 12/22/2022 HISTORY OF PRESENT ILLNESS: Gurinder is [...] theright foot in the past as well. Gurinder states the problem has been present for 6 months Jonynic states the problem started gradually with no [...] Osteoarthritis Type 2 diabetes mellitus without complication ([facility]) ([facility]) UTI symptoms 01/13/2021 Allergies Allergen Reactions Penicillins [...] level of the midfoot Gait and Station: [place] walks with a limp RADIOGRAPHIC INTERPRETATION: 3 [...] polyneuropathy, with long-term current use of insulin ([facility]) ([facility]) Diabetic Shoes 3. Diabetic polyneuropathy associated with type 2 diabetes mellitus ([facility]) ([facility]) Diabetic Shoes MEDICAL DECISION MAKING: I had [...] visit was spent discussing daily foot care withGurinder. I explained that Gurinder needs to check [...] file. Electronically signed by Tu Goetz MD [facility] of Orthopedic surgery 12/22/2022 2:57 PM Voice recognition was used for portions of this note and although it was reviewed prior to signing some incorrect words or phrases could be present. documented in this [facility]01-04-2023 Telephone encounter Note* Telephone Encounter - Yadira Uribe MA - 11/22/2022 3:15 PM EST Prescription Request: Last medication check: 05/09/2022 Last physical exam: 06/22/2021 Next scheduled appointment: 12/08/2022 Last date of refill on this medication: 09/21/22 for #120 and 1 refill [facility] EastQctnug86-93-9295 Miscellaneous Notes* Telephone Encounter - Yadira Uribe MA - 11/22/2022 3:15 PM EST Prescription Request: Last medication check: 05/09/2022 Last physical exam: 06/22/2021 Next scheduled appointment: 12/08/2022 Last date of refill on this medication: 09/21/22 for #120 and [address] in [facility]01-26-2022 Hospital Discharge instructions Patient Education [...] get worse or if new symptoms appear. 2431-0137 [employer]. [address] [place] [address]. All rights reserved. This information is not intended as a substitute for professional medical care. Always follow yourhealthcare professional's instructions. 12/14/2021 00:51:30 COVID-19 Prevent the Spread of COVID-19 If You Are Sick (04/06/2020) (Custom) Prevent the Spread of COVID-19 If You Are Sick Accessible version: https://www.cdc.gov/coronavirus/2019-ncov/kz-zyq-kzw-sick/gigzo-mcic-evdc.html If you are sick with COVID-19 or [...] Animals if you have questions about pets: https://www.cdc.gov/coronavirus/2019ncov/faq.html#FVTDU11qbvqhqo Monitor your symptoms. Common symptoms of COVID-19 [...] and need to call 911, notify the underground drill operator that you have or think you [...] clean your hands with an alcohol-based hand cutter hot knife that contains at least 60% alcohol. Clean your hands often. Wash your hands often with soap and water for at least 20 seconds. This is especially important after blowing your nose, coughing, or sneezing; going to the bathroom; and before eating or preparing food. Use hand cutter hot knife if soap and water are not available. Use an alcohol-based hand cutter hot knife with atleast 60% alcohol, covering all surfaces [...] and water or put them in the accounts payable analyst. Clean all high-touch surfaces everyday. Clean and [...] or body fluids on them. Use household loss prevention specialist and disinfectants. Clean the area or item [...] Up Care 12/13/2021 23:14:18 With:ARTIE JACKSON Address: [address] [place] [address] Business (1) When:2-4 days Comments:You may return anytime for further work-up. [facility] 10-17-2021 Hospital Discharge instructions* Instructions* Bernie Knight APRN - CNP - 09/04/2021 Take tylenol for pain * Attachments The following attachments cannot be sent through Care Everywhere. * Tendon Injury (Tendinopathy) (Lebanese) documented in this [facility] Work Phone: [phone]) 829-772310-15-2021 Hospital Discharge instructions Patient Education 09/02/2021 15:00:23 [...] for the time advised. You may use ieuh-heu-ooelnyv pain medicine to control pain, unless another [...] provider when it is safe to begin ibyen-du-iwsxib exercises. Sometimes fractures don t show up [...] hand becomes cold, blue, numb, or tingly [phone] [employer]. [address] [place] [address]. All rights reserved. This information is not intended as a substitute for professional medical care. Always follow yourhealthcare professional's instructions. Follow Up Care 09/02/2021 14:35:30 With:VIANEY JACKSON MD Address: [phone] When:2-4 days [facility] Evaluation + Plan note No data available for this section [facility] Evaluation + Plan note Future Appointments Appointment Date:06/17/2024 10:15:00 AM Scheduled Provider: Location:[facility] Appointment Type:[facility] Hospital Follow Up [facility] Evaluation note* Diagnosis Finger swelling- Primary Swelling of limb Pain of finger of left hand Pain in limb documented in this encounter [facility] Work Phone: Evaluation note* Diagnosis Pain in right foot- Primary Pain in soft tissues of limb documented in this encounter [facility] [employer]24Evaluation note* Diagnosis Diabetes mellitus with proteinuria (CMS/HCC) (HCC)- Primary Elevated serum creatinine Other nonspecific findings on examination of blood documented in this encounter [facility] [place] [facility]* Diagnosis Type 2 diabetes mellitus with diabetic polyneuropathy, with long-term current use of insulin (CMS/HCC) (HCC) documented in this encounter [facility] [employer]24[facility] [place] [facility]* Diagnosis Hyperkalemia- Primary Hyperpotassemia documented in this encounter [facility] [employer]24Eval[facility] [place] note* Diagnosis Type 2 diabetes mellitus with diabetic polyneuropathy, with long-term current use of insulin (CMS/HCC) (HCC) Diabetic polyneuropathy associated with type 2 diabetes mellitus (CMS/HCC) (HCC) Diabetes mellitus with proteinuria (CMS/HCC) (HCC) [facility] Diagnosis Type 2 diabetes mellitus with diabetic polyneuropathy, with long-term current use of insulin (CMS/HCC) (HCC)- Primary documented in this encounter [facility] [place] [facility]* Diagnosis Type 2 diabetes mellitus with diabetic polyneuropathy, with long-term current use of insulin (CMS/HCC) (HCC) Class 2 obesity due to excess calories without serious comorbidity with body mass index (BMI) of 38.0 to 38.9 in adult documented in this encounter [facility] [place] [facility]* Diagnosis Urinary frequency- Primary documented in this encounter [facility] [place] [facility]* Diagnosis Type 2 diabetes mellitus with diabetic polyneuropathy, with long-term current use of insulin (CMS/HCC) (HCC) Diabetic polyneuropathy associated with type 2 diabetes mellitus (CMS/HCC) (HCC) Diabetes mellitus with proteinuria (CMS/HCC) (HCC) [facility] Diagnosis Hyperlipidemia LDL goal <70 Other and unspecified hyperlipidemia documented in this encounter [facility]* Diagnosis Hyperlipidemia LDL goal <70 Other and unspecified hyperlipidemia [facility] Diagnosis Type 2 diabetes mellitus with diabetic polyneuropathy, with long-term current use of insulin (CMS/HCC) (HCC) Diabetic polyneuropathy associated with type 2 diabetes mellitus (CMS/HCC) (HCC) Diabetes mellitus with proteinuria (CMS/HCC) (HCC) [facility] Diagnosis Type 2 diabetes mellitus with diabetic polyneuropathy, with long-term current use of insulin (CMS/HCC) (HCC)- Primary Chronic renal disease, stage IV (HCC) Chronic kidney disease, Stage IV (severe) [facility] Diagnosis Type 2 diabetes mellitus with diabetic polyneuropathy, with long-term current use of insulin (CMS/HCC) (HCC) Diabetic polyneuropathy associated with type 2 diabetes mellitus (CMS/HCC) (HCC) [facility] Diagnosis Type 2 diabetes mellitus with diabetic polyneuropathy, with long-term current use of insulin (CMS/HCC) (HCC) Diabetic polyneuropathy associated with type 2 diabetes mellitus (CMS/HCC) (HCC) 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) [facility] Diagnosis Type 2 diabetes mellitus with diabetic polyneuropathy, with long-term current use of insulin (CMS/HCC) (HCC) Chronic renal disease, stage IV (HCC) Chronic kidney disease, Stage IV (severe) [facility] Diagnosis Hyperlipidemia LDL goal <70 Other and unspecified hyperlipidemia documented in this encounter [facility]* Diagnosis Type 2 diabetes mellitus with diabetic polyneuropathy, with long-term current use of insulin (HCC) [facility] Diagnosis Essential hypertension- Primary Unspecified essential hypertension documented in this encounter [facility]* Diagnosis Type 2 diabetes mellitus with diabetic polyneuropathy, with long-term current use of insulin (HCC)- Primary Chronic renal disease, stage IV (HCC) Chronic kidney disease, Stage IV (severe) Essential hypertension Unspecified essential hypertension Gastroesophageal reflux disease, unspecified whether esophagitis present Hyperlipidemia LDL goal <70 Other and unspecified hyperlipidemia Essential hypertension Unspecified essential hypertension documented in this encounter [facility]* Diagnosis Type 2 diabetes mellitus with diabetic polyneuropathy, with long-term current use of insulin ([facility])- Primary Chronic renal disease, stage IV (HCC) Chronic kidney disease, Stage IV (severe) Essential hypertension Unspecified essential hypertension Gastroesophageal reflux disease, unspecified whether esophagitis present Hyperlipidemia LDL goal <70 Other and unspecified hyperlipidemia Diabetes mellitus with proteinuria ([facility]/HCC) ([facility]) ([facility])- Primary Type 2 diabetes mellitus with diabetic polyneuropathy, with long-term current use of insulin ([facility]) Encounter for diabetic foot exam ([facility]) Paroxysmal atrial fibrillation ([facility]) Atrial fibrillation Cardiomyopathy, unspecified type ([facility]) Chronic renal disease, stage IV (HCC) Chronic [...] Influenza vaccine refused documented in this encounter [facility]* Diagnosis Right foot pain- Primary Pain in soft tissues of limb Right foot pain Pain in soft tissues of limb documented in this encounter [facility]* Diagnosis Charcot's joint of right foot Type 2 diabetes mellitus with diabetic polyneuropathy, with long-term current use of insulin ([facility]) ([facility]) Diabetic polyneuropathy associated with type 2 diabetes mellitus ([facility]) ([facility]) documented in this encounter [facility]* Diagnosis Right foot pain Pain in soft tissues of limb documented in this encounter [facility]* Diagnosis Type 2 diabetes mellitus with diabetic polyneuropathy, with long-term current use of insulin ([facility]) ([facility])- Primary Diabetic polyneuropathy associated with type 2 diabetes mellitus ([facility]/HCC) ([facility]) Diabetes mellitus with proteinuria ([facility]/HCC) ([facility]) Encounter for diabetic foot exam ([facility]) Essential hypertension Unspecified essential hypertension Hyperlipidemia LDL goal <70 Other and unspecified hyperlipidemia Cigarette nicotine dependence without complication Class 2 obesity due to excess calories without serious comorbidity with body mass index (BMI) of 38.0 to 38.9 in adult Gastroesophageal reflux disease, unspecified whether esophagitis present Screening for prostate cancer Special screening for malignant neoplasm of prostate [facility] [place] [facility]* Diagnosis Diabetes mellitus with proteinuria (CMS/HCC) (HCC)- Primary Elevated serum creatinine Other nonspecific findings on examination of blood Type 2 diabetes mellitus with diabetic polyneuropathy, with long-term current use of insulin (CMS/HCC) (HCC) Poorly controlled type 2 diabetes mellitus (CMS/HCC) ([facility]) [facility] [place] [facility]* Diagnosis Type 2 diabetes mellitus with diabetic polyneuropathy, with long-term current use of insulin (CMS/HCC) (HCC) Diabetic polyneuropathy associated with type 2 diabetes mellitus (CMS/HCC) (HCC) Diabetes mellitus with proteinuria (CMS/HCC) ([facility]) [facility] [place] [facility]* Diagnosis Diabetic eye exam (CMS/HCC) ([facility])- Primary Examination of eyes and vision Type 2 diabetes mellitus with diabetic polyneuropathy, with long-term current use of insulin ([facility]) ([facility]) [facility] [place] [facility]* Diagnosis Type 2 diabetes mellitus with diabetic polyneuropathy, with long-term current use of insulin ([facility])- Primary Chronic renal disease, stage IV (HCC) [...] unspecified CKD stage [facility] [place] [facility]* Diagnosis Type 2 diabetes mellitus with diabetic polyneuropathy, with long-term current use of insulin (HCC)- Primary Chronic renal disease, stage IV (HCC) Chronic kidney disease, Stage IV (severe) Essential hypertension Unspecified essential hypertension Gastroesophageal reflux disease, unspecified whether esophagitis present Hyperlipidemia LDL goal <70 Other and unspecified hyperlipidemia Type 2 diabetes mellitus with diabetic polyneuropathy, with long-term current use of insulin ([facility]) [facility] [place] [facility]* Diagnosis Type 2 diabetes mellitus with [...] male genital organs documented [facility] [place] [facility]* Diagnosis Type 2 diabetes mellitus with diabetic polyneuropathy, with long-term current use of insulin ([facility])- Primary Chronic renal disease, stage IV (HCC) [...] male genital organs documented [facility] [place] [facility]* Diagnosis Type 2 diabetes mellitus with diabetic polyneuropathy, with long-term current use of insulin ([facility])- Primary Chronic renal disease, stage IV (HCC) [...] male genital organs documented in this encounter [facility] note* Diagnosis Type 2 diabetes mellitus with diabetic polyneuropathy, with long-term current use of insulin ([facility])- Primary Chronic renal disease, stage IV (HCC) Chronic kidney disease, Stage IV (severe) Essential hypertension Unspecified essential hypertension Gastroesophageal reflux disease, unspecified whether esophagitis present Hyperlipidemia LDL goal <70 Other and unspecified hyperlipidemia Diabetes mellitus with proteinuria ([facility]/HCC) ([facility]) ([facility]) Type 2 diabetes mellitus with diabetic polyneuropathy, with long-term current use of insulin ([facility]) documented in this encounter [facility] note* Diagnosis Type 2 diabetes mellitus with diabetic polyneuropathy, with long-term current use of insulin ([facility])- Primary Chronic renal disease, stage IV (HCC) Chronic kidney disease, Stage IV (severe) Essential hypertension Unspecified essential hypertension Gastroesophageal reflux disease, unspecified whether esophagitis present Hyperlipidemia LDL goal <70 Other and unspecified hyperlipidemia Type 2 diabetes mellitus with diabetic polyneuropathy, with long-term current use of insulin (HCC) documented [facility] [place] [facility]* Diagnosis Type 2 diabetes mellitus with [...] wound of skin documented [facility] this [facility] [place] [facility]* Diagnosis Type 2 diabetes mellitus with [...] of insulin (HCC) documented [facility] [place] [facility]* Diagnosis Type 2 diabetes mellitus with [...] and unspecified hyperlipidemia documented in this encounter [facility] [place] [facility]* Diagnosis Type 2 diabetes mellitus with [...] in this encounter [facility] Discharge instructions No data available for this section [facility] Reason for referral (narrative)* Consultation (Routine) - Pending Review Specialty Diagnoses / Procedures Referred By Sachi t Referred To Contact Nephrology Diagnoses Elevated serum creatinine Diabetes mellitus with proteinuria (CMS/HCC) (HCC) Procedures [place] OFFICE/OUTPATIENT NEW HIGH MDM 60-74 MINUTES Phoebe Adam, GUN FITTER - [employer] [address] [place] [address] Keyona Paige MD [address] [place] [address], [address] [place] [address] Referral ID Status Reason Start Date Expiration Date Visits Requested Visits Authorized [id number] Pending Review Specialty Services Required 03/21/2023 03/20/2024 1 1 [facility] for referral (narrative)* Consultation (Routine) - Pending Review Specialty Diagnoses / Procedures Referred By Contac t Referred To Contact Ophthalmology Diagnoses Type 2 diabetes mellitus with diabetic polyneuropathy, with long-term current use of insulin (CMS/HCC) (HCC) Procedures [place] OFFICE/OUTPATIENT NEW HIGH MDM 60-74 MINUTES Phoebe Adam GUN FITTER - [employer] [address] [place] [address] Rae Mccarthy MD [address] [place] [phone] Referral ID Status Reason Start Date Expiration Date Visits Requested Visits Authorized [id number] Pending Review Specialty Services Required 01/08/2023 01/08/2024 1 1 [facility] for referral (narrative)* Consultation (Routine) - Pending Review Specialty Diagnoses / Procedures Referred By Contac t Referred To Contact Endocrinology Diagnoses Diabetes mellitus with proteinuria (CMS/HCC) (HCC) Type 2 diabetes mellitus with diabetic polyneuropathy, with long-term current use of insulin (CMS/HCC) (HCC) Poorly controlled type 2 diabetes mellitus (CMS/HCC) (HCC) Procedures [place] OFFICE/OUTPATIENT NEW HIGH MDM 60-74 MINUTES Phoebe Adam GUN FITTER - [employer] [address] [place] [address] [facility] [address] [place] [address] Referral ID Status Reason Start Date Expiration Date Visits Requested Visits Authorized [id number] Pending Review Specialty Services Required 01/10/2023 01/10/2024 1 1 * Consultation (Routine) - Pending Review Specialty Diagnoses / Procedures Referred By Contac t Referred To Contact Nephrology Diagnoses Diabetes mellitus with proteinuria (CMS/HCC) (HCC) Elevated serum creatinine Procedures [place] OFFICE/OUTPATIENT NEW HIGH MDM 60-74 MINUTES Phoebe Adam APRN - [facility] [address] [place] [address] Sierra Ward MD [address] [place] [address], [place] [address] Referral ID Status Reason Start Date Expiration Date Visits Requested Visits Authorized [id number] Pending Review Specialty Services Required 01/10/2023 01/10/2024 1 1 [facility] Consultation (Routine) - Pending Review Specialty Diagnoses / Procedures Referred By Sachi espinoza Referred To Contact Ophthalmology Diagnoses Type 2 diabetes mellitus with diabetic polyneuropathy, with long-term current use of insulin ([facility]) ([facility]) Diabetic eye exam ([facility]) ([facility]) Procedures [place] OFFICE/OUTPATIENT [facility] 60-74 MINUTES Phoebe Adam APRN - [employer] [address] [place] [address] Referral ID Status Reason Start Date Expiration Date Visits Requested Visits Authorized [id number] Pending Review Specialty Services Required 01/22/2023 01/22/2024 1 1 [facility] EMILIANO Blount: PERFORM Event Display: Patient Summary Documents Authored Date: [facility]* Bess Parker: PERFORM Event Display: Patient Summary Documents Authored Date: [facility] Discharge Instructions * Instructions* Tuyet Gupta, [...] one [x] Call my office today (office [phone]) for follow up appointment in 3 days. [x] Have your prescriptions filled promptly and take as prescribed. [x] Do not be alarmed if blood appears on the bandage or if black and blue ramachandran appear. Some silver dollar size blood on outer bandage is ok. If this gets larger Please call me. My cell phone is [phone]. [x] If any unusual situation arises- Call [...] FoundDocuments on File Type Date Recorded Patient Technology Applications Teacher Expl anation Advance Directives and Living Will Power of Brokerage Clerk Latest Code Status on File Code Status Date Activated Date Inactivated Comments Full Code 05/14/2020 7:34 AM Documents on File Type Date Recorded Patient Technology Applications Teacher Expl anation ACP-Advance Directive ACP-Power of Brokerage Clerk Latest Code Status on File Code Status Date Activated Date Inactivated Comments Full Code 05/14/2020 7:34 AM 05/14/2020 12:49 PM Documents on File Type Date Recorded Patient Technology Applications Teacher Expl anation ACP-Advance Directive ACP-Power of Brokerage Clerk Latest Code Status on File Code Status [...] Contac t Referred To Contact Phoebe Adam APRN - [employer] [address] [place] [address] Referral ID Status Reason Start Date Expiration Date V isits Requested Visits Authorized [id number] Pending Review 1 1 Specialty Diagnoses / Procedures Referred By Contac t Referred To Contact Shreya Olivera APRN - [employer] [address] [place] [address] Referral ID Status Reason Start Date Expiration Date Visits Re quested Visits Authorized [id number] Closed 1 1 Status Reason Specialty Diagnoses / Procedures Referred By Contact Referred To Contact Open Specialty Services Required Orthopedic Surgery: Hand Surgery / Orthopedic Surgery Diagnoses Finger swelling Pain of finger of left hand Bernie Knight APRN - [employer] [address] [place] [address] [place] [address] [place] [address] [place] [address] Scheduling Instructions [facility] Hand/Wrist Upper Extremities - Green [address] , [address] [place] [address] Summary Purpose Family History No Family History [...] Work Health Maintenance Echo- had done in [facility] Flu- declines Hiv/Hep C screen- declines [...] Med Refill 01/22/2023 Reason Onset Date Comments [facility] 01/22/2023 [facility] Reason Onset Date Comments Med Refill 11/19/2024 Reason Onset Date Comments Cancelled Appointment 10/21/2024 Reason Comments New Patient had sepsis and gangr olinda in testicle area, now has an open spot that urine is coming thru, urethral erosion, green discharge Specialty Diagnoses / Procedures Referred By Sachi t Referred To Contact Urology Diagnoses urinary issues Procedures Satnam Duran DO [address] [place] [address] Phone: tel:[phone] fax: [facility] - [address] [place] [phone] Phone: tel: fax: Referral ID Status Reason Start Date Expiration Date Visits Re quested Visits Authorized [id number] Closed 09/23/2024 09/23/2025 1 1 Reason Onset Date Comments Surgery Scheduling 12/09/2024 Reason Comments 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 It looks like snot dripping from the fistula - Gross hematuria - Chronic renal disease, stage IV, pt c/o odor in the groin Specialty Diagnoses / Procedures Referred By Sachi espinoza Referred To Contact Urology 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 Gross hematuria Chronic renal disease, stage IV (HCC) Procedures [place] OFFICE/OUTPATIENT NEW HIGH MDM 60 MINUTES Phoebe Adam S, GUN FITTER - [employer] TENDER [address] [facility] [place] [address] [place] [address] Phone: tel: fax: Fidel Gavin MD [address] [place] [address] [address] [place] [address] Phone: tel: fax: Referral ID Status Reason Start Date Expiration Date V isits Requested Visits Authorized [id number] Closed Specialty Services Required 12/15/2024 12/15/2025 1 [...] section and content) DATE CREATED AUTHOR 01/12/2022 [facility] DATE CREATED AUTHOR AUTHOR'S ORGANIZ ATION 07/23/2024 [facility] [place] [facility] DATE CREATED AUTHOR AUTHOR'S ORGANIZ ATION 03/08/2025 [facility] DATE CREATED AUTHOR AUTHOR'S ORGANIZ ATION 03/30/2025 [facility] DATE CREATED AUTHOR AUTHOR'S ORGANIZ ATION 09/08/2025 [facility] DATE CREATED AUTHOR AUTHOR'S ORGANIZ ATION 09/14/2025 [facility] Care Teams (unrecognized sec tion and content) Wood Milling Machine Tender Relationship Specialty Start Date End Date Artie Jackson MD [address] [place], [place] [id number] PCP - General 08/27/17 [employer] Machine Tender Relationship Specialty Start Date End Date Artie Jackson MD [address] [place], [place] [id number] PCP - General 08/27/17 [employer] Machine Tender Relationship Specialty Start Date End Date Artie Jackson MD [address] [place], [place] [id number] PCP - General 08/27/17 [employer] Machine Tender Relationship Specialty Start Date End Date Artie Jackson MD [address] [facility] [place] [id number] PCP - General 08/27/17 [employer] Machine Tender Relationship Specialty Start Date End Date Artie Jackson MD [address] [facility] [place] [address] PCP - General 08/27/17 [employer]illing Machine Tender Relationship Specialty Start Date End Date Artie Jackson MD [address] [facility] [place] [address] PCP - General 08/27/17 [employer] Milling Machine Tender Relationship Specialty Start Date End Date Artie Jackson MD [address] [facility] [place] [address] PCP - General 08/27/17 [employer] Machine Tender Relationship Specialty Start Date End Date Artie Jackson MD [address] [facility] [place] [address] PCP - General 08/27/17 [employer] Machine Tender Relationship Specialty Start Date End Date Artie Jackson MD [address] [facility] [place] [address] PCP - General 08/27/17 [employer] Milling Machine Tender Relationship Specialty Start Date End Date Artie Jackson MD [address] [facility] [place] [address] PCP - General 08/27/17 [employer] Machine Tender Relationship Specialty Start Date End Date Artie Jackson MD [address] [facility] [place] [address] PCP - General 08/27/17 [employer] Machine Tender Relationship Specialty Start Date End Date Artie Jackson MD [address] [place] [place] [address] PCP - General 08/27/17 [employer] Machine Tender Relationship Specialty Start Date End Date Artie Jackson MD [address] [facility] [place] [address] PCP - General 08/27/17 [employer]illing Machine Tender Relationship Specialty Start Date End Date Artie Jackson MD [address] [facility] [place] [address] PCP - General 08/27/17 [employer] Machine Tender Relationship Specialty Start Date End Date Artie Jackson MD [address] [facility] [place] [address] PCP - General 08/27/17 [employer] Milling Machine Tender Relationship Specialty Start Date End Date Artie Jackson MD [address] [facility] [place] [address] PCP - General 08/27/17 [employer] Milling Machine Tender Relationship Specialty Start Date End Date Artie Jackson MD [address] [facility] [place] [address] PCP - General 08/27/17 [employer] Milling Machine Tender Relationship Specialty Start Date End Date Artie Jackson MD [address] [facility] [place] [address] PCP - General 08/27/17 [employer] Milling Machine Tender Relationship Specialty Start Date End Date Artie Jackson MD [address] [place] [address] PCP - General 08/27/17 Wood Milling Machine Tender Relationship Specialty Start Date End Date Artie Jackson MD [address] [facility] [place] [address] PCP - General 08/27/17 [employer] Milling Machine Tender Relationship Specialty Start Date End Date Artie Jackson MD [address] [place] [address] PCP - General 08/27/17 Wood Milling Machine Tender Relationship Specialty Start Date End Date Artie Jackson MD [address] [place] [address] PCP - General 08/27/17 [employer] Milling Machine Tender Relationship Specialty Start Date End Date Artie Jackson MD [address] [place] [address] PCP - General 08/27/17 [employer] Milling Machine Tender Relationship Specialty Start Date End Date Artie Jackson MD [address] [facility] [place] [address] PCP - General 08/27/17 [employer] Milling Machine Tender Relationship Specialty Start Date End Date Artie Jackson MD [address] [place] [place] [address] PCP - General 08/27/17 [employer]illing Machine Tender Relationship Specialty Start Date End Date Artie Jackson MD [address] [place] [facility] [place] [address] PCP - General 08/27/17 [employer] Machine [employer] Relationship Specialty Start Date End Date Artie Jackson MD [address] [place], [place] [address] [address] PCP - General 08/27/17 [employer] Machine Tender Relationship Specialty Start Date End Date Artie Jackson MD [address] [place] [address] [place] [address] PCP - General 08/27/17 [employer] Machine Tender Relationship Specialty Start Date End Date Artie Jackson MD [address] [place], [place] [address], [place] [address] PCP - General 08/27/17 [employer] Machine Tender Relationship Specialty Start Date End Date Artie Jackson MD [address] [place] [address] PCP - General 08/27/17 [employer] Machine Tender Relationship Specialty Start Date End Date Artie Jackson MD [address] [place] [address] PCP - General 08/27/17 Garrick Velasquez MD [address] [address] Surgeon Urology 10/21/24 [employer] Machine Tender Relationship Specialty Start Date End Date Artie Jackson MD [address] [place] [address] PCP - General 08/27/17 Garrick Velasquez MD [address] [address] Surgeon Urology 10/21/24 [employer] Machine Tender Relationship Specialty Start Date End Date Artie Jackson MD 25 [place] [address] PCP - General 08/27/17 Garrick Velasquez MD [address] [address] Surgeon Urology 10/21/24 [employer] Machine Tender Relationship Specialty Start Date [place] [address] PCP - General 08/27/17 Garrick Velasquez MD [address] [address] Surgeon Urology 10/21/24 [employer] Machine Tender Relationship Specialty Start Date [place] [address] PCP - General 08/27/17 Garrick Velasquez MD [address] [address] Surgeon Urology 10/21/24 [employer] Machine Tender Relationship Specialty Start Date [place] [address] PCP - General 08/27/17 Garrick Velasquez MD [address] [address] Surgeon Urology 10/21/24 [employer] Machine Tender Relationship Specialty Start Date [place] [address] PCP - General 08/27/17 Garrick Velasquez MD 201 [facility] [address] [place] [address] Surgeon Urology 10/21/24 Jose Morrison MD [address] [facility] [address] [place] [address] Urology 01/22/25 [employer]illing Machine Tender Relationship Specialty Start Date End Date Artie Jackson MD [facility] [place] [address] PCP - General 08/27/17 Garrick Velasquez MD 201 [facility] [address] [place] [address] Surgeon Urology 10/21/24 Jose Morrison MD [address] [facility] [address] [place] [address] Urology 01/22/25 [employer]illing Machine Tender Relationship Specialty Start Date End Date Artie Jackson MD [facility] [place] [address] PCP - General 08/27/17 Garrick Velasquez MD 201 [facility] [address] [place] [address] Surgeon Urology 10/21/24 Jose Morrison MD [address] [facility] [address] [place] [address] Urology 01/22/25 [employer] Machine Tender Relationship Specialty Start Date End Date Artie Jackson MD 25 [facility] [place] [address] PCP - General 08/27/17 Garrick Velasquez MD 201 [facility] 3 [place] [address] Surgeon Urology 10/21/24 Jose Morrison MD [address] [facility] [address] [place] [address] Urology 01/22/25 [employer]illing Machine Tender Relationship Specialty Start Date End Date Artie Jackson MD [facility] [place] [address] PCP - General 08/27/17 Garrick Velasquez MD 201 [facility] 3 [place] [address] Surgeon Urology 10/21/24 Jose Morrison MD [address] [address] Urology 01/22/25 [employer] Machine Tender Relationship Specialty Start Date End Date Artie Jackson MD 25 [facility] [place] [address] PCP - General 08/27/17 Garrick Velasquez MD 201 [facility] [address] [place] [address] Surgeon Urology 10/21/24 Jose Morrison MD [address] [facility] [address] [place] [address] Urology 01/22/25 [employer] Machine Tender Relationship Specialty Start Date End Date Artie Jackson MD 25 [facility] [place] [address] PCP - General 08/27/17 Garrick Velasquez MD 201 [facility] [address] [place] [address] Surgeon Urology 10/21/24 Jose Morrison MD [address] [facility] [address] [place] [address] Urology 01/22/25 [employer] Machine Tender Relationship Specialty Start Date End Date Artie Jackson MD 25 [facility] [place] [address] PCP - General 08/27/17 Garrick Velasquez MD 201 [facility] [address] [place] [address] Surgeon Urology 10/21/24 Jose Morrison MD [address] [facility] [address] [place] [address] Urology 01/22/25 [employer] Machine Tender Relationship Specialty Start Date End Date Artie Jackson MD 25 [facility] [address] [facility] [place] [address] PCP - General 08/27/17 Garrick Velasquez MD 201 [facility] [address] [place] [address] Surgeon Urology 10/21/24 Jose Morrison MD 95 [facility] [address] [place] [address] Urology 01/22/25 [employer] Machine Tender Relationship Specialty Start Date End Date Artie Jackson MD 25 [place] [address] PCP - General 08/27/17 Garrick Velasquez MD 201 [facility] 3 [place] [address] Surgeon Urology 10/21/24 Jose Morrison MD [address] [facility] [address] [place] [address] Urology 01/22/25 [employer] Machine Tender Relationship Specialty Start Date End Date Artie Jackson MD 25 [place] [address] PCP - General 08/27/17 Garrick Velasquez MD 201 [facility] 3 [place] [address] Surgeon Urology 10/21/24 Jose Morrison MD [address] [facility] [address] [place] [address] Urology 01/22/25 [employer] Machine Tender Relationship Specialty Start Date End Date Artie Jackson MD 25 [place] [address] PCP - General 08/27/17 Garrick Velasquez MD 201 [facility] 3 [place] [address] Surgeon Urology 10/21/24 Jose Morrison MD 95 [facility] 165 [place] [address] Urology 01/22/25 [employer] Machine Tender Relationship Specialty Start Date End Date Artie Jackson MD [facility] [place] [address] PCP - General 08/27/17 Garrick Velasquez MD 201 [facility] 3 [place] [address] Surgeon Urology 10/21/24 Jose Morrison MD [address] [address] Urology 01/22/25 [employer] Machine Tender Relationship Specialty Start Date [place] [address] PCP - General 08/27/17 Garrick Velasquez MD [address] [address] Surgeon Urology 10/21/24 Jose Morrison MD [address] [address] Urology 01/22/25 [employer] Machine Tender Relationship Specialty Start Date [place] [address] PCP - General 08/27/17 Garrick Velasquez MD 201 [facility] 3 [place] [address] Surgeon Urology 10/21/24 Jose Morrison MD [address] [facility] [address] [place] [address] Urology 01/22/25 [employer]illing Machine Tender Relationship Specialty Start Date End Date Artie Jackson MD [address] [place] [address], [address] [place] [id number] PCP - General 08/27/17 Garrick Velasquez MD 201 [facility] [address] [place], [place] [id number] Surgeon Urology 10/21/24 Jose Morrison MD [address] [facility] [address] [place] [address] Urology 01/22/25 FOR RECORDS PERTAINING TO PATIENTS [...] ON THE PRIMARY CLINICAL RECORDS. [facility]. provides no warranty or guarantee of the accuracy or completeness of information in this document.
--- NOTE | 2025-09-14 20:32 | CON.PCM.SX_ITS ---
Assessment & Plan Assessment/Plan (1) End stage renal disease on dialysis: PLAN: Patient is 50-year-old male ESRD secondary to type 2 diabetes is on hemodialysis via catheter, however, ended up with yeast infection and catheter was removed last week. He was due to have a new catheter inserted today, however, he left AMA. He presents today confirming an intent to see his treatment through with this admission. Examination of the prior catheter site is reassuring that there are no further infection concerns locally. He does, notably, still have a slight leukocytosis but appears well. He is severely hyperkalemic and does require imminent dialysis. Will plan for right possible hemodialysis catheter insertion tomorrow. Patient to be made n.p.o. past midnight. Appreciate hospitalist service and their attempts to remedy hyperkalemia to a degree that it is safe to proceed with sedation in the OR tomorrow. Patient to be consented for right possible left tunneled hemodialysis catheter insertion. Julio Medina MD General Surgery Endocrine Surgery Pager: [facility] [address] [place] [address], [address] [place] [address] Office: [phone] (2) Central line infection: QUALIFIERS: Encounter type: initial encounter Qualified Code(s): T80.219A - Unspecified infection due to central venous catheter, initial encounter PLAN: Status post removal 09/09/[address] Castro HPI Consult Data Date of Consult: 09/14/25 HPI Narrative Reason for Consultation: Tunneled hemodialysis catheter insertion HPI Narrative: GURINDER HAHN, is a 50 M who presents to [facility] after recent admission last week for infected right tunneled hemodialysis catheter. He underwent removal of his previous catheter with Dr. Dee before leaving [place] to address some family issues. He presents today having addressed the family issues and in his ER intake was noted to have severely elevated potassium at 6.2. He is pending further treatment with medical management. Also notably hyperglycemic with a blood glucose greater than 400. Patient notes prior history of Jean's gangrene but is uncertain whether or not he has previously had central venous catheter aside from the catheter mentioned above. [facility] Medical History Anemia, unspecified Acute kidney failure, unspecified Obstructive and reflux uropathy, unspecified Polyneuropathy, unspecified Jean gangrene Debility Type 2 diabetes mellitus Decubitus ulcer of right buttock, stage 4 Home Medications ?Medication ?Instructions ?Recorded ?Last Taken ?Type apixaban 5 mg tablet (Eliquis) 5 mg PO BID blood thinn er 06/05/24 09/09/25 History gabapentin 300 mg capsule 300 mg PO QHS leg pain 06/05 Unknown History glimepiride 4 mg tablet 8 mg PO DAILY diabetes 06/05 Unknown History insulin glargine 100 unit/mL (3 30 unit subcut QHS camila betes 06/05/24 Unknown History mL) subcutaneous pen (Lantus Solostar U-100 Insulin) insulin lispro 100 unit/mL 1 sliding scale dose subcut TID DM 06/05/24 Unknown History subcutaneous pen (Humalog KwikPen (U-100) Insulin) omeprazole 40 mg capsule,delayed 40 mg PO BID gerd Unknown History release rosuvastatin 10 mg tablet 10 mg PO DAILY cholesterol 0 06/05/24 Unknown History acetaminophen 325 mg tablet 650 mg PO Q8H PRN pain Unknown History calcium acetate(phosphat bind) 667 1,334 mg PO TID camila lysis patient 09/08/25 Unknown History mg capsule hydralazine 50 mg tablet 50 mg PO TID blood pressure 09/08/25 Unknown History melatonin 3 mg tablet 3 mg PO QHS sleep 09/08/25 U nknown History metoprolol succinate 25 mg 25 mg PO DAILY heart Unknown History tablet,extended release 24 hr Allergy/AdvReac Type Severity Reaction Status Date / Time ampicillin Allergy Unknown PT UNABLE Verified 09/14/25 13:29 TO RESPOND-NEEDS F/U Penicillins Allergy Unknown PT UNABLE Verified 09/14/25 13:29 TO RESPOND-NEEDS F/U lisinopril AdvReac Mild nausea Verified 09/14/25 13:29 Social History Smoking Status: Current some day smoker tobacco type: cigarettes Physical Exam Const alert, oriented x3 and no apparent distress Chest Chest Narrative: Bandage with some soil along the tape and right upper chest. This was removed and there is some scabbing at exit site from prior tunneled hemodialysis catheter, however, there is no erythema, drainage, or concern for ongoing infection. Lab / Micro Data 09/14/25 15:50 09/14/25 15:50 Labs: Laboratory Results - last 24 hr 09/14/25 15:50: WBC 13.4 H, RBC 3.46 L, Hgb 8.9 L, Hct 30.1 L, MCV 87.0, MCH 25.7 L, MCHC 29.6 L, RDW Std Deviation 57.7 H, RDW Coeff of Adolfo 18.0 H, Plt Count 241, MPV 10.3, Immature Gran % (Auto) 1.000 H, Neut % (Auto) 71.8 H, Lymph % (Auto) 14.9 L, [place] % (Auto) 8.5, Eos % (Auto) 2.9, Baso % (Auto) 0.9, A bsolute Neuts (auto) 9.6 H, Absolute Lymphs (auto) 2.00, Nucleated RBC % 0, S odium 131 L, Potassium 6.2 H*, Chloride 99, Carbon Dioxide 18.1 L, Anion Gap 14, BUN 54 H, Creatinine 7.18 H, Estim Creat Clear Calc 18.25 L, Est GFR (MDRD) Non- Af 9 L, BUN/Creatinine Ratio 7.5 L, Glucose 473 H*, Calcium 8.7, b- Hydroxybutyric mmol/L 0.1 ABG Data ABG results: ABG 09/14/25 17:28 Specimen Type DINO Sample Site Not entered VBG pH 7.32 VBG pO2 41 H VBG HCO3 19 L VBG Total CO2 20 L VBG O2 Sat (Calc) 72 H VBG Base Excess -7 L POC Mix VBG pCO2 Pt Tmp 37.3 L O2 Delivery Device Not entered Imaging Radiology Impression Chest X-Ray 09/14/25 16:00 IMPRESSION: No acute cardiopulmonary disease. Reading Location: [id number] Charges/Coding Visit Charges Inpatient E&M: 05581 Init Hosp L2
[2025-09-14] MEDS: Insulin Glargine-YFGN 100 UNIT/ML Pen 30 UNIT SC (22:36)
[2025-09-14] MEDS: MELATONIN 3 MG TABLET PO (22:37)
[2025-09-14 23:10] LABS: Anion Gap 13 (5-15); BUN 57 mg/dL (4-19); BUN/Creat Ratio 7.2 RATIO (10-20); Calcium,Total 9.2 mg/dL (7.6-11.0); Carbon Dioxide 19.0 mmol/L (21.0-32.0); Chloride 100 mmol/L (98-108); Estimated Creatinine Clearance 16.65 ml/min (50-250); Glucose 376 mg/dL (70-99)
[2025-09-15] VITALS (15 sets, daily range): BP systolic 131–174; BP diastolic 65–97; PULSE 81–92; RESP 14–20; TEMP 36.2–37; O2SAT 94–100; BMI 37.5
[2025-09-15 05:41] LABS: Potassium 6.0 mmol/L (3.3-5.1)
[2025-09-15 05:51] LABS: Hematocrit 27.2 % (40-54); Hemoglobin 8.2 g/dL (13.0-16.5); Immature Granulocytes Count 0.140 X10^3/uL (0.0-0.0); Mean Corp Hgb Conc 30.1 g/dL (32-36); Mean Corpuscular Volume 86.6 fL (80-94); Mean Platelet Vol. 9.9 fl (6.2-12.0); NRBC Flagged by Analyzer 0 % (0-5); Platelet Count 240 K/mm3 (150-450); RBC Distribution Width CV 17.9 % (11.6-14.6); RBC Distribution Width SD 57.2 fl (35.1-43.9); Red Blood Count 3.14 M/mm3 (4.6-6.2); White Blood Count 12.1 K/mm3 (4.4-11.0)
[2025-09-15 06:00] LABS: Prothrombin Time (Protime)PT. 15.8 SECONDS (11.7-14.9)
[2025-09-15 06:01] LABS: Partial Thromboplast Time 38.8 Seconds (24.1-36.2)
[2025-09-15 06:23] LABS: Anion Gap 15 (5-15); BUN 57 mg/dL (4-19); BUN/Creat Ratio 7.6 RATIO (10-20); Calcium,Total 8.9 mg/dL (7.6-11.0); Carbon Dioxide 18.3 mmol/L (21.0-32.0); Chloride 100 mmol/L (98-108); Estimated Creatinine Clearance 17.41 ml/min (50-250); Glucose 397 mg/dL (70-99); Potassium 5.8 mmol/L (3.3-5.1)
--- NOTE | 2025-09-15 08:58 | PN.SURG_ITS ---
Subjective Subjective Patient evaluated resting comfortably in bed. He denies any concerns or questions at this time. Objective Data Objective Data Vital Signs: Vital Signs Temp Pulse Resp BP Pulse Ox O2 Del Method 98.6 F 88 18 142/67 H 95 Room Air 09/15/25 02:00 09/15/25 06:17 09/15/25 02:00 09/15/25 06:17 09/15/25 02:00 09/15/25 03:00 Oxygen Delivery Method Room Air Weight: 292 lb 12.382 oz Body Mass Index (BMI) 37.5 Intake & Output: Intake and Output for Last 24 Hours 09/13/25 09/14/25 09/15/25 23:59 23:59 23:59 Intake Total Balance Lab / Micro Data 09/15/25 04:57 09/15/25 04:57 Labs: Laboratory Results - last 24 hr 09/14/25 15:50: WBC 13.4 H, RBC 3.46 L, Hgb 8.9 L, Hct 30.1 L, MCV 87.0, MCH 25.7 L, MCHC 29.6 L, RDW Std Deviation 57.7 H, RDW Coeff of Adolfo 18.0 H, Plt Count 241, MPV 10.3, Immature Gran % (Auto) 1.000 H, Neut % (Auto) 71.8 H, Lymph % (Auto) 14.9 L, [place] % (Auto) 8.5, Eos % (Auto) 2.9, Baso % (Auto) 0.9, A bsolute Neuts (auto) 9.6 H, Absolute Lymphs (auto) 2.00, Nucleated RBC % 0, S odium 131 L, Potassium 6.2 H*, Chloride 99, Carbon Dioxide 18.1 L, Anion Gap 14, BUN 54 H, Creatinine 7.18 H, Estim Creat Clear Calc 18.25 L, Est GFR (MDRD) Non- Af 9 L, BUN/Creatinine Ratio 7.5 L, Glucose 473 H*, Calcium 8.7, b- Hydroxybutyric mmol/L 0.1 09/14/25 22:09: Sodium 133, Potassium 6.0 H*, Chloride 100, Carbon Dioxide 19.0 L, Anion Gap 13, BUN 57 H, Creatinine 7.86 H*, Estim Creat Clear Calc 16.65 L, E st GFR (MDRD) Non-Af 8 L, BUN/Creatinine Ratio 7.2 L, Glucose 376 H, Calcium 9.2 09/14/25 22:35: POC Glucose 348 H 09/15/25 04:57: WBC 12.1 H, RBC 3.14 L, Hgb 8.2 L, Hct 27.2 L, MCV 86.6, MCH 26.1 L, MCHC 30.1 L, RDW Std Deviation 57.2 H, RDW Coeff of Adolfo 17.9 H, Plt Count 240, MPV 9.9, Immature Gran % (Auto) 1.200 H, Neut % (Auto) 71.1 H, Lymph % (Auto) 16.0 L, [place] % (Auto) 8.0, Eos % (Auto) 3.0, Baso % (Auto) 0.7, A bsolute Neuts (auto) 8.6 H, Absolute Lymphs (auto) 1.93, Nucleated RBC % 0, PT 15.8 H, INR 1.2, APTT 38.8 H, Sodium 134, Potassium 5.8 H, Chloride 100, Carbon Dioxide 18.3 L, Anion Gap 15, BUN 57 H, Creatinine 7.52 H*, Estim Creat Clear Calc 17.41 L, Est GFR (MDRD) Non-Af 8 L, BUN/Creatinine Ratio 7.6 L, Glucose 397 H, Calcium 8.9 09/15/25 06:16: POC Glucose 341 H ABG Data ABG results: ABG 09/14/25 17:28 Specimen Type DINO Sample Site Not entered VBG pH 7.32 VBG pO2 41 H VBG HCO3 19 L VBG Total CO2 20 L VBG O2 Sat (Calc) 72 H VBG Base Excess -7 L POC Mix VBG pCO2 Pt Tmp 37.3 L O2 Delivery Device Not entered Radiography Diagnostic Testing: Radiology Impression Chest X-Ray 09/14/25 16:00 IMPRESSION: No acute cardiopulmonary disease. Reading Location: [id number] Assessment & Plan Assessment/Plan (1) End stage renal disease on dialysis: PLAN: I am following this patient in conjunction with Dr. Medina. He has independently evaluated this patient. Plan for right chest tunneled dialysis catheter placement today with Dr. Medina We will continue to monitor this patient Charges/Coding Visit Charges Inpatient E&M: 30717 Subs Hosp L1 (pre-op; no charge)
[2025-09-15] MEDS: Metoprolol(XL)Succ 25 MG Tablet PO (09:21)
--- NOTE | 2025-09-15 09:31 | PCM.PN.HOSP ---
Subjective Subjective Plan for dialysis catheter line placement Objective Data Objective Data Vital Signs: Vital Signs Temp Pulse Resp BP Pulse Ox O2 Del Method 97.9 F 89 15 151/86 H 98 Room Air 09/15/25 08:00 09/15/25 09:21 09/15/25 08:00 09/15/25 08:00 09/15/25 08:00 09/15/25 09:16 Oxygen Delivery Method Room Air Weight: 292 lb 12.382 oz Body Mass Index (BMI) 37.5 Intake & Output: Intake and Output for Last 24 Hours 09/14/25 09/15/25 09/16/25 03:59 03:59 03:59 Intake Total Balance Lab / Micro Data 09/15/25 04:57 09/15/25 04:57 Labs: Laboratory Results - last 24 hr 09/14/25 15:50: WBC 13.4 H, RBC 3.46 L, Hgb 8.9 L, Hct 30.1 L, MCV 87.0, MCH 25.7 L, MCHC 29.6 L, RDW Std Deviation 57.7 H, RDW Coeff of Adolfo 18.0 H, Plt Count 241, MPV 10.3, Immature Gran % (Auto) 1.000 H, Neut % (Auto) 71.8 H, Lymph % (Auto) 14.9 L, [place] % (Auto) 8.5, Eos % (Auto) 2.9, Baso % (Auto) 0.9, Absolute Neuts (auto) 9.6 H, Absolute Lymphs (auto) 2.00, Nucleated RBC % 0, Sodium 131 L, Potassium 6.2 H*, Chloride 99, Carbon Dioxide 18.1 L, Anion Gap 14, BUN 54 H, Creatinine 7.18 H, Estim Creat Clear Calc 18.25 L, Est GFR (MDRD) Non-Af 9 L, BUN/Creatinine Ratio 7.5 L, Glucose 473 H*, Calcium 8.7, b-Hydroxybutyric mmol/L 0.1 09/14/25 22:09: Sodium 133, Potassium 6.0 H*, Chloride 100, Carbon Dioxide 19.0 L, Anion Gap 13, BUN 57 H, Creatinine 7.86 H*, Estim Creat Clear Calc 16.65 L, Est GFR (MDRD) Non-Af 8 L, BUN/Creatinine Ratio 7.2 L, Glucose 376 H, Calcium 9.2 09/14/25 22:35: POC Glucose 348 H 09/15/25 04:57: WBC 12.1 H, RBC 3.14 L, Hgb 8.2 L, Hct 27.2 L, MCV 86.6, MCH 26.1 L, MCHC 30.1 L, RDW Std Deviation 57.2 H, RDW Coeff of Adolfo 17.9 H, Plt Count 240, MPV 9.9, Immature Gran % (Auto) 1.200 H, Neut % (Auto) 71.1 H, Lymph % (Auto) 16.0 L, [place] % (Auto) 8.0, Eos % (Auto) 3.0, Baso % (Auto) 0.7, Absolute Neuts (auto) 8.6 H, Absolute Lymphs (auto) 1.93, Nucleated RBC % 0, PT 15.8 H, INR 1.2, APTT 38.8 H, Sodium 134, Potassium 5.8 H, Chloride 100, Carbon Dioxide 18.3 L, Anion Gap 15, BUN 57 H, Creatinine 7.52 H*, Estim Creat Clear Calc 17.41 L, Est GFR (MDRD) Non-Af 8 L, BUN/Creatinine Ratio 7.6 L, Glucose 397 H, Calcium 8.9 09/15/25 06:16: POC Glucose 341 H ABG Data ABG results: ABG 09/14/25 17:28 Specimen Type DINO Sample Site Not entered VBG pH 7.32 VBG pO2 41 H VBG HCO3 19 L VBG Total CO2 20 L VBG O2 Sat (Calc) 72 H VBG Base Excess -7 L POC Mix VBG pCO2 Pt Tmp 37.3 L O2 Delivery Device Not entered Radiography Diagnostic Testing: Radiology Impression Chest X-Ray 09/14/25 16:00 IMPRESSION: No acute cardiopulmonary disease. Reading Location: [facility] Physical Exam Narrative General: Alert, Oriented x3, Cooperative, No apparent distress HEENT: Atraumatic, PERRLA, EOMI, Normocephalic Oral: Moist Mucosa Neck: Supple, No JVD Lungs: Diminished, Normal air movement, No rhonchi, No wheeze, No rales Cardiovascular: Regular rate, Regular Rhythm, Normal S1, Normal S2, No murmurs Abdomen: Soft, Non Tender, Non-Distended, No Hepato-splenomegaly Extremities: No edema, Capillary Refill Less than 3 Seconds Skin: No rashes, No breakdown Musculoskeletal: No Tenderness to Palpation of Joints or Extremities Neurological: No focal neurological deficits, moves all extremities Psych/Mental Status: Normal Affect, Appropriate Assessment & Plan Assessment/Plan (1) Acute hyperkalemia: (2) Central line infection: QUALIFIERS: Encounter type: initial encounter Qualified Code(s): T80.219A - Unspecified infection due to central venous catheter, initial encounter (3) End stage renal disease on dialysis: PLAN: Plan 1. Hyperkalemia in the setting of end-stage renal disease on hemodialysis due to DM2 with a recent HD catheter line infection and removal/anemia of chronic disease ? Catheter tip and wound grew Maribell we will plan for Keflex and p.o. fluconazole ? Okay for reinsertion of catheter by surgery ? Appreciate assistance of surgery and infectious disease ? Continue with sliding scale insulin and Accu-Cheks ? Monitor make adjustments as necessary ? Hemoglobin on is close to his baseline, will monitor 2. Paroxysmal A-fib/essential HTN/HLD ? Hold Eliquis ? Continue with his home blood pressure and cholesterol medications ? Will monitor make adjustments as necessary 3. GERD ? Stable ? Continue PPI DVT: SCDs Charges/Coding Visit Charges Inpatient E&M: 34217 Subs Hosp L2
--- NOTE | 2025-09-15 09:47 | PCM.CONS.GEN ---
Assessment & Plan Assessment/Plan (1) Central line infection: QUALIFIERS: Encounter type: initial encounter Qualified Code(s): T80.219A - Unspecified infection due to central venous catheter, initial encounter PLAN: Bcx remain neg. Line removed 09/10. Wound cxs with lactobacillus and C albicans. Will start fluconazole and ceftriaxone. Plan on discharge on 5 days po fluc 100mg daily and po cefdinir 300mg given after HD on dialysis days. Will follow thank you, d/w Dr. Chowdary (2) End stage renal disease on dialysis: HPI Consult Data Date of Consult: 09/15/25 HPI Narrative Reason for Consultation: infected permacth HPI Narrative: GURINDER HAHN, is a 50 M with ESRD, recent admit with infected R chest permacath. Line removed 09/10, wound cx with yeast and lactobacillus. Left AMA 09/10. Feeling fine, no issues after former line site. No fever, no n/v/d. Full ROS performed and neg except as noted above. [facility] Medical History Anemia, unspecified Acute kidney failure, unspecified Obstructive and reflux uropathy, unspecified Polyneuropathy, unspecified Jean gangrene Debility Type 2 diabetes mellitus Decubitus ulcer of right buttock, stage 4 Home Medications ?Medication ?Instructions ?Recorded ?Last Taken ?Type apixaban 5 mg tablet (Eliquis) 5 mg PO BID blood thinner 06/05/24 09/09/25 History gabapentin 300 mg capsule 300 mg PO QHS leg pain 06/05/24 Unknown History glimepiride 4 mg tablet 8 mg PO DAILY diabetes 06/05/24 Unknown History insulin glargine 100 unit/mL (3 30 unit subcut QHS diabetes 06/05/24 Unknown History mL) subcutaneous pen (Lantus Solostar U-100 Insulin) insulin lispro 100 unit/mL 1 sliding scale dose subcut TID DM 06/05/24 Unknown History subcutaneous pen (Humalog KwikPen (U-100) Insulin) omeprazole 40 mg capsule,delayed 40 mg PO BID gerd 06/05/24 Unknown History release rosuvastatin 10 mg tablet 10 mg PO DAILY cholesterol 06/05/24 Unknown History acetaminophen 325 mg tablet 650 mg PO Q8H PRN pain 06/18/24 Unknown History calcium acetate(phosphat bind) 667 1,334 mg PO TID dialysis patient 09/08/25 Unknown History mg capsule hydralazine 50 mg tablet 50 mg PO TID blood pressure 09/08/25 Unknown History melatonin 3 mg tablet 3 mg PO QHS sleep 09/08/25 Unknown History metoprolol succinate 25 mg 25 mg PO DAILY heart 09/08/25 Unknown History tablet,extended release 24 hr Allergy/AdvReac Type Severity Reaction Status Date / Time ampicillin Allergy Unknown PT UNABLE Verified 09/14/25 13:29 TO RESPOND-NEEDS F/U Penicillins Allergy Unknown PT UNABLE Verified 09/14/25 13:29 TO RESPOND-NEEDS F/U lisinopril AdvReac Mild nausea Verified 09/14/25 13:29 Social History Smoking Status: Current some day smoker tobacco type: cigarettes Physical Exam Const alert, oriented x3 and no apparent distress General Appearance: cooperative HEENT normocephalic and head/scalp atraumatic Eyes PERRL and EOMs intact bilaterally Neck supple and No nodes Resp normal air movement and clear to auscultation bilaterally Cardio regular rate and regular rhythm GI soft to palpation, non-tender and non-distended Extremity General Extremity: Negative for edema Skin Skin Narrative: mild redness and induration at former R chest permacath site Neuro CN's II-XII intact bilaterally Lab / Micro Data Attestation: I reviewed the patient's lab results. 09/15/25 04:57 09/15/25 04:57 Labs: Laboratory Results - last 24 hr 09/14/25 15:50: WBC 13.4 H, RBC 3.46 L, Hgb 8.9 L, Hct 30.1 L, MCV 87.0, MCH 25.7 L, MCHC 29.6 L, RDW Std Deviation 57.7 H, RDW Coeff of Adolfo 18.0 H, Plt Count 241, MPV 10.3, Immature Gran % (Auto) 1.000 H, Neut % (Auto) 71.8 H, Lymph % (Auto) 14.9 L, [place] % (Auto) 8.5, Eos % (Auto) 2.9, Baso % (Auto) 0.9, Absolute Neuts (auto) 9.6 H, Absolute Lymphs (auto) 2.00, Nucleated RBC % 0, Sodium 131 L, Potassium 6.2 H*, Chloride 99, Carbon Dioxide 18.1 L, Anion Gap 14, BUN 54 H, Creatinine 7.18 H, Estim Creat Clear Calc 18.25 L, Est GFR (MDRD) Non-Af 9 L, BUN/Creatinine Ratio 7.5 L, Glucose 473 H*, Calcium 8.7, b-Hydroxybutyric mmol/L 0.1 09/14/25 22:09: Sodium 133, Potassium 6.0 H*, Chloride 100, Carbon Dioxide 19.0 L, Anion Gap 13, BUN 57 H, Creatinine 7.86 H*, Estim Creat Clear Calc 16.65 L, Est GFR (MDRD) Non-Af 8 L, BUN/Creatinine Ratio 7.2 L, Glucose 376 H, Calcium 9.2 09/14/25 22:35: POC Glucose 348 H 09/15/25 04:57: WBC 12.1 H, RBC 3.14 L, Hgb 8.2 L, Hct 27.2 L, MCV 86.6, MCH 26.1 L, MCHC 30.1 L, RDW Std Deviation 57.2 H, RDW Coeff of Adolfo 17.9 H, Plt Count 240, MPV 9.9, Immature Gran % (Auto) 1.200 H, Neut % (Auto) 71.1 H, Lymph % (Auto) 16.0 L, [place] % (Auto) 8.0, Eos % (Auto) 3.0, Baso % (Auto) 0.7, Absolute Neuts (auto) 8.6 H, Absolute Lymphs (auto) 1.93, Nucleated RBC % 0, PT 15.8 H, INR 1.2, APTT 38.8 H, Sodium 134, Potassium 5.8 H, Chloride 100, Carbon Dioxide 18.3 L, Anion Gap 15, BUN 57 H, Creatinine 7.52 H*, Estim Creat Clear Calc 17.41 L, Est GFR (MDRD) Non-Af 8 L, BUN/Creatinine Ratio 7.6 L, Glucose 397 H, Calcium 8.9 09/15/25 06:16: POC Glucose 341 H ABG Data ABG results: ABG 09/14/25 17:28 Specimen Type DINO Sample Site Not entered VBG pH 7.32 VBG pO2 41 H VBG HCO3 19 L VBG Total CO2 20 L VBG O2 Sat (Calc) 72 H VBG Base Excess -7 L POC Mix VBG pCO2 Pt Tmp 37.3 L O2 Delivery Device Not entered Imaging Radiology Impression Chest X-Ray 09/14/25 16:00 IMPRESSION: No acute cardiopulmonary disease. Reading Location: [id number]
[2025-09-15] MEDS: 0.9% Normal Saline (250mL Bag) 250 ML 15 ML IV (10:35)
--- NOTE | 2025-09-15 10:45 | PCM.CONS.R ---
Assessment & Plan Assessment/Plan (1) End stage renal disease on dialysis: PLAN: Plan This is a 50-year-old male with past medical history significant for end-stage renal disease who dialyzes at [facility] Sunday, presented emergency room yesterday as he needs new tunneled hemodialysis line placed. Patient had been hospitalized at [facility] last week for tunneled hemodialysis line infection, catheter tip culture, wound culture with lactobacillus and C albicans. Patient treated with antibiotics per ID. He was to have new tunneled hemodialysis line placed on September 14. Surgery team consulted, ID consulted. Patient currently on fluconazole and ceftriaxone. At time of discharge to be discharged home on fluconazole and cefdinir per ID. Last hemodialysis was 09/10. There is no urgent need for hemodialysis, though potassium is elevated it has improved from 6.2 yesterday to 5.8 today. Yesterday glucose was 473, today glucose 397, recommend to continue treating hyperglycemia. Patient did receive dose of Kayexalate yesterday. Patient will have hemodialysis once tunneled hemodialysis catheter has been placed. Recommended to patient to avoid potassium rich foods and continue to follow renal diet once able to eat after line placed. Volume status appears compensated. Further orders forthcoming as hospitalization evolves, thank you for allowing us to participate in the care of Mr. Hahn. Assessment and plan reviewed with Dr. Paige. HPI Consult Data Date of Consult: 09/15/25 HPI Narrative HPI Narrative: GURINDER HAHN, is a 50 M with past medical history significant for ESRD who currently dialyzes at [facility] Sunday schedule under Dr. Gutierres who presented to the emergency room yesterday for need for tunneled dialysis line placement. Patient had been admitted to [facility] last week for tunneled hemodialysis catheter infection. His catheter was removed on September 10. Catheter tip culture, wound culture with lactobacillus and C albicans. Patient was treated with vancomycin, cefepime and fluconazole. Patient last dialyzed in hospital on September 10. He was to have a new tunneled hemodialysis catheter placed on September 14 but patient left hospital AGAINST MEDICAL ADVICE. Nephrology consulted in view of history of ESRD and for dialysis management. Patient denies any chest pain, shortness of breath, nausea, or vomiting. No fevers. Surgery team has been consulted for new tunneled hemodialysis line placement. ID consulted for antibiotics. PFSH Medical History Anemia, unspecified Acute kidney failure, unspecified Obstructive and reflux uropathy, unspecified Polyneuropathy, unspecified Jean gangrene Debility Type 2 diabetes mellitus Decubitus ulcer of right buttock, stage 4 Home Medications ?Medication ?Instructions ?Recorded ?Last Taken ?Type apixaban 5 mg tablet (Eliquis) 5 mg PO BID blood thinner 06/05/24 09/09/25 History gabapentin 300 mg capsule 300 mg PO QHS leg pain 06/05/24 Unknown History glimepiride 4 mg tablet 8 mg PO DAILY diabetes 06/05/24 Unknown History insulin glargine 100 unit/mL (3 30 unit subcut QHS diabetes 06/05/24 Unknown History mL) subcutaneous pen (Lantus Solostar U-100 Insulin) insulin lispro 100 unit/mL 1 sliding scale dose subcut TID DM 06/05/24 Unknown History subcutaneous pen (Humalog KwikPen (U-100) Insulin) omeprazole 40 mg capsule,delayed 40 mg PO BID gerd 06/05/24 Unknown History release rosuvastatin 10 mg tablet 10 mg PO DAILY cholesterol 06/05/24 Unknown History acetaminophen 325 mg tablet 650 mg PO Q8H PRN pain 06/18/24 Unknown History calcium acetate(phosphat bind) 667 1,334 mg PO TID dialysis patient 09/08/25 Unknown History mg capsule hydralazine 50 mg tablet 50 mg PO TID blood pressure 09/08/25 Unknown History melatonin 3 mg tablet 3 mg PO QHS sleep 09/08/25 Unknown History metoprolol succinate 25 mg 25 mg PO DAILY heart 09/08/25 Unknown History tablet,extended release 24 hr Allergy/AdvReac Type Severity Reaction Status Date / Time ampicillin Allergy Unknown PT UNABLE Verified 09/14/25 13:29 TO RESPOND-NEEDS F/U Penicillins Allergy Unknown PT UNABLE Verified 09/14/25 13:29 TO RESPOND-NEEDS F/U lisinopril AdvReac Mild nausea Verified 09/14/25 13:29 Social History Smoking Status: Current some day smoker tobacco type: cigarettes ROS ROS Narrative As in HPI otherwise negative Physical Exam Narrative Alert and orient x 3, no apparent distress S1, S2, RRR Lungs sound clear. On room air Abdomen soft, nontender Trace edema lower legs Scab intact to right chest from previous hemodialysis catheter site Lab / Micro Data 09/15/25 04:57 09/15/25 04:57 Labs: Laboratory Results - last 24 hr 09/14/25 15:50: WBC 13.4 H, RBC 3.46 L, Hgb 8.9 L, Hct 30.1 L, MCV 87.0, MCH 25.7 L, MCHC 29.6 L, RDW Std Deviation 57.7 H, RDW Coeff of Adolof 18.0 H, Plt Count 241, MPV 10.3, Immature Gran % (Auto) 1.000 H, Neut % (Auto) 71.8 H, Lymph % (Auto) 14.9 L, [place] % (Auto) 8.5, Eos % (Auto) 2.9, Baso % (Auto) 0.9, Absolute Neuts (auto) 9.6 H, Absolute Lymphs (auto) 2.00, Nucleated RBC % 0, Sodium 131 L, Potassium 6.2 H*, Chloride 99, Carbon Dioxide 18.1 L, Anion Gap 14, BUN 54 H, Creatinine 7.18 H, Estim Creat Clear Calc 18.25 L, Est GFR (MDRD) Non-Af 9 L, BUN/Creatinine Ratio 7.5 L, Glucose 473 H*, Calcium 8.7, b-Hydroxybutyric mmol/L 0.1 09/14/25 22:09: Sodium 133, Potassium 6.0 H*, Chloride 100, Carbon Dioxide 19.0 L, Anion Gap 13, BUN 57 H, Creatinine 7.86 H*, Estim Creat Clear Calc 16.65 L, Est GFR (MDRD) Non-Af 8 L, BUN/Creatinine Ratio 7.2 L, Glucose 376 H, Calcium 9.2 09/14/25 22:35: POC Glucose 348 H 09/15/25 04:57: WBC 12.1 H, RBC 3.14 L, Hgb 8.2 L, Hct 27.2 L, MCV 86.6, MCH 26.1 L, MCHC 30.1 L, RDW Std Deviation 57.2 H, RDW Coeff of Adolfo 17.9 H, Plt Count 240, MPV 9.9, Immature Gran % (Auto) 1.200 H, Neut % (Auto) 71.1 H, Lymph % (Auto) 16.0 L, [place] % (Auto) 8.0, Eos % (Auto) 3.0, Baso % (Auto) 0.7, Absolute Neuts (auto) 8.6 H, Absolute Lymphs (auto) 1.93, Nucleated RBC % 0, PT 15.8 H, INR 1.2, APTT 38.8 H, Sodium 134, Potassium 5.8 H, Chloride 100, Carbon Dioxide 18.3 L, Anion Gap 15, BUN 57 H, Creatinine 7.52 H*, Estim Creat Clear Calc 17.41 L, Est GFR (MDRD) Non-Af 8 L, BUN/Creatinine Ratio 7.6 L, Glucose 397 H, Calcium 8.9 09/15/25 06:16: POC Glucose 341 H ABG Data ABG results: ABG 09/14/25 17:28 Specimen Type DINO Sample Site Not entered VBG pH 7.32 VBG pO2 41 H VBG HCO3 19 L VBG Total CO2 20 L VBG O2 Sat (Calc) 72 H VBG Base Excess -7 L POC Mix VBG pCO2 Pt Tmp 37.3 L O2 Delivery Device Not entered Imaging Radiology Impression Chest X-Ray 09/14/25 16:00 IMPRESSION: No acute cardiopulmonary disease. Reading Location: [id number]
--- NOTE | 2025-09-15 14:21 | PCM.PRE.AN2 ---
ASA Classification* ASA Classification ASA Classification: 3 and E Assessment & Plan Anesthesia* Anesthesia Assessment Anesthesia Assessment: Discussed sedation and/or anesthesia options, risks, benefits, and alternatives with patient/parents/legal guardian/POA. Questions invited. The patient/parents/legal guardian/POA seems to understand and agrees to proceed with anesthesia plan. Reviewed the physical assessment, medical history, allergy history and patient home medications list prior to surgery/procedure/anesthetic and documented any changes. Performed airway and anesthesia risk assessments. Anesthesia Type Anesthesia Type: MAC History Source History Obtained from:: Patient and Chart Anesthesia Focused Assessment* Temperature: 97.9 F Pulse Rate: 89 Blood Pressure: 151/86 Respiratory Rate: 15 Pulse Ox: 98 Oxygen Delivery Method: Room Air Airway Assessment Mouth opens: >3 cm Mallampati Score: II Teeth Condition: Missing (Very poor dentition. Only 2 decayed teeth lower jaw present) Neck Range of motion (ROM): Full ROM Labs Anesthesia Preop lab: CBC WBC, (4.4-11.0) 12.1 K/mm3 H Today, 04:57 RBC, (4.6-6.2) 3.14 M/mm3 L Today, 04:57 Hgb, (13.0-16.5) 8.2 g/dL L Today, 04:57 Hct, (40-54) 27.2 % L Today, 04:57 Plt Count, (150-450) 240 K/mm3 Today, 04:57 CHEMISTRY Potassium, (3.3-5.1) 5.8 mmol/L H Today, 04:57 Sodium, (133-145) 134 mmol/L Today, 04:57 Phosphorus, (2.7-4.5) 3.7 mg/dL 03/16/25, 12:00 BUN, (4-19) 57 mg/dL H Today, 04:57 Creatinine, (0.70-1.20) 7.52 mg/dL H* Today, 04:57 Glucose, (70-99) 397 mg/dL H Today, 04:57 POC Glucose, (74-106) 256 mg/dL H Today, 11:39 COAG PT, (11.7-14.9) 15.8 SECONDS H Today, 04:57 Pre-Assessment Diagnosis/Proposed Procedure Planned Operative Procedure(s): Insertion of dialysis catheter Anesthesia History Anesthesia History - tapper helper: Anesthesia History - tapper helper Hx Hospitalization Any Problems With Anesthesia No 09/15/25 06:00 Cholinesterase deficiency No 09/15/25 06:00 You/Your Family Experience No 09/15/25 06:00 fever (hyperthermia) with Relationship Recent Exposure to Contagious No 09/15/25 06:00 Disease Does patient have nerve No 09/15/25 06:00 stimulator Patient instructed to have No 09/15/25 06:00 device shut off --Does patient have Pacemaker No 09/15/25 06:00 or ICD? When Was Last Pacemaker Check QUESTION #4 FULL TEXT: You/Your Family Experience fever (hyperthermia) with Anesthesia Last Oral Intake Last Oral intake: Last Oral Intake NPO since 00:00 09/15/25 06:00 Meds taken in AM with sips of Yes 09/15/25 06:00 water? Meds patient instructed to take am of surgery PONV PONV - tapper helper: PONV - tapper helper Female HX of Motion Sickness HX of N/V After Surgery Non-Smoker Duration of Surgery greater than 60 minutes Number of Risk Factors PONV Score Height & Weight Height & Weight: Anesthesia: Height & Weight Height 6 ft 2 in 09/15/25 10:43 Weight: 132.8 kg 09/15/25 10:43 Body Mass Index (BMI) 37.5 09/15/25 06:00 Respiratory Assessment Respiratory Assessment - tapper helper: Respiratory Tract Infection Hx - tapper helper Hx Respiratory Tract Infection No 09/15/25 06:00 STOP Sleep Apnea STOP Sleep Apnea - tapper helper: STOP Sleep Apnea - tapper helper Hx Hypertension Yes 09/14/25 19:30 Hx Sleep Apnea No 09/14/25 19:30 CPAP BIPAP Do you snore loudly (louder Yes 09/14/25 19:30 than talking or can be heard Do you often feel tired/ Yes 09/14/25 19:30 fatigued/ sleepy during daytime? Has anyone observed you stop No 09/14/25 19:30 breathing during sleep? STOP Results Positive 09/14/25 19:30 QUESTION #5 FULL TEXT : Do you snore loudly (louder than talking or can be heard through closed doors)? 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 Specify any problems Hx of Preganancy in last 3 N/A 09/14/25 19:30 Months Nurse Filling Out Transfusion [id number] 09/14/25 19:30 & Questions: Date: 09/14/25 09/14/25 19:30 Time: 19:45 09/14/25 19:30 Patient unable to answer at this time (ie. confused, unrespo /Reproduction History /Reproductive History - tapper helper: /Reproductive Hx- tapper helper Hx Now No 09/15/25 06:00 Gestational Age (in weeks): EDC: Hx Hx Para Hx Section SAB Active Medications Active Medications: Current Medications Generic Name Dose Route Start Last Admin Trade Name Freq PRN Reason Stop Dose Admin Acetaminophen 650 mg 09/14/25 19:23 Acetaminophen 325 Mg Tablet PO Q6H PRN PRN Pain 1-10 Or Fever>100.7 Atorvastatin Calcium 20 mg 09/15/25 10:00 09/15/25 09:21 Atorvastatin Calcium 20 Mg Tablet PO 20 mg DAILY COLE Administration Calcium Acetate 1,334 mg 09/15/25 08:00 09/15/25 12:54 Calcium Acetate 667 Mg Capsule PO Not Given TIDCM COLE Fluconazole 100 mg 09/15/25 10:00 09/15/25 12:10 Fluconazole 100 Mg Tablet PO 100 mg DAILY COLE Administration Gabapentin 300 mg 09/14/25 22:00 09/14/25 22:37 Gabapentin 300 Mg Capsule PO 300 mg QHS COLE Administration Glucagon 1 mg 09/14/25 19:23 Glucagon 1 Mg/Ml Syringe IM X1 PRN Hypoglycemia Protocol Hydralazine HCl 50 mg 09/14/25 22:00 09/15/25 06:17 Hydralazine 50 Mg Tablet PO 50 mg TID COLE Administration Protocol Dextrose 250 mls @ 0 mls/hr 09/14/25 19:23 Dextrose 10%-Water IV .Q0M PRN HYPOGLYCEMIA Protocol As Directed Sodium Chloride 250 mls @ 15 mls/hr 09/14/25 19:40 09/15/25 10:35 IV 15 mls/hr .[id number] PRN Administration Saline Flush Sodium Chloride 250 mls @ 15 mls/hr 09/14/25 19:40 IV .[id number] PRN Additional IVPB Infusion Insulin Glargine 30 unit 09/14/25 22:00 09/14/25 22:36 Insulin Glargine-Yfgn 100 Unit/Ml Pen SC 30 unit QHS COLE Administration Protocol Insulin Human Lispro 0 unit 09/14/25 22:00 09/15/25 11:53 Insulin Lispro 100 Unit/Ml Insuln.Pen SC Not Given ACHS COLE Protocol Melatonin 3 mg 09/14/25 22:00 09/14/25 22:37 Melatonin 3 Mg Tablet PO 3 mg QHS COLE Administration Metoprolol Succinate 25 mg 09/15/25 10:00 09/15/25 09:21 Metoprolol(Xl)Succ 25 Mg Tablet PO 25 mg DAILY COLE Administration Protocol Ondansetron HCl 4 mg 09/14/25 19:23 Ondansetron 4 Mg/2 Ml Vial IV Q8H PRN PRN NAUSEA/VOMITING Pantoprazole Sodium 40 mg 09/14/25 22:00 09/15/25 09:21 Pantoprazole Sodium 40 Mg Tablet PO 40 mg BID COLE Administration Sodium Chloride 10 - 40 ml 09/14/25 19:40 0.9% Saline Lock 10 Ml Syringe IV UD PRN SALINE FLUSH PFSH Medical History Anemia, unspecified Acute kidney failure, unspecified Obstructive and reflux uropathy, unspecified Polyneuropathy, unspecified Jean gangrene Debility Type 2 diabetes mellitus Decubitus ulcer of right buttock, stage 4 Home Medications ?Medication ?Instructions ?Recorded ?Last Taken ?Type apixaban 5 mg tablet (Eliquis) 5 mg PO BID blood thinner 06/05/24 09/09/25 History gabapentin 300 mg capsule 300 mg PO QHS leg pain 06/05/24 Unknown History glimepiride 4 mg tablet 8 mg PO DAILY diabetes 06/05/24 Unknown History insulin glargine 100 unit/mL (3 30 unit subcut QHS diabetes 06/05/24 Unknown History mL) subcutaneous pen (Lantus Solostar U-100 Insulin) insulin lispro 100 unit/mL 1 sliding scale dose subcut TID DM 06/05/24 Unknown History subcutaneous pen (Humalog KwikPen (U-100) Insulin) omeprazole 40 mg capsule,delayed 40 mg PO BID gerd 06/05/24 Unknown History release rosuvastatin 10 mg tablet 10 mg PO DAILY cholesterol 06/05/24 Unknown History acetaminophen 325 mg tablet 650 mg PO Q8H PRN pain 06/18/24 Unknown History calcium acetate(phosphat bind) 667 1,334 mg PO TID dialysis patient 09/08/25 Unknown History mg capsule hydralazine 50 mg tablet 50 mg PO TID blood pressure 09/08/25 Unknown History melatonin 3 mg tablet 3 mg PO QHS sleep 09/08/25 Unknown History metoprolol succinate 25 mg 25 mg PO DAILY heart 09/08/25 Unknown History tablet,extended release 24 hr Allergy/AdvReac Type Severity Reaction Status Date / Time ampicillin Allergy Unknown PT UNABLE Verified 09/14/25 13:29 TO RESPOND-NEEDS F/U Penicillins Allergy Unknown PT UNABLE Verified 09/14/25 13:29 TO RESPOND-NEEDS F/U lisinopril AdvReac Mild nausea Verified 09/14/25 13:29 Social History Smoking Status: Current some day smoker tobacco type: cigarettes Review of Systems (Anesthesia) ROS Narrative System reviewed and no additional complaints, except as documented.
[2025-09-15] MEDS: 0.9% Normal Saline (1000mL) 500 ML IV (15:00)
[2025-09-15] MEDS: Midazolam 2 MG/2 ML Syringe IV (15:05)
[2025-09-15] MEDS: Cefazolin 1 GM/5 ML Vial 2 GM IV (15:20)
[2025-09-15] MEDS: fentaNYL 100 MCG/2 ML Ampul IV (15:44)
--- NOTE | 2025-09-15 16:05 | CASEMGMT ---
Patient is out of room at procedure at this time and not available to participate in discharge planning. RN CM to discuss discharge planning with patient at later time when available. CM will continue to follow this patient and plan for a safe discharge.
--- NOTE | 2025-09-15 16:05 | PCM.OPRPT ---
Procedures Cardiovascular CF Procedures [id number]: [id number] Insert tunneled cv cath Operative Report (Standard) Operative Information Date of Procedure: 09/15/25 Pre-Operative Diagnosis: End-stage renal disease on dialysis requiring replacement of tunneled catheter Post-Operative Diagnosis: Same Surgery/Procedure Performed: Ultrasound and fluoroscopic guided placement radio news writer: No Type of Anesthesia: MAC/Supplemental RN Documented Start/Stop Times: Operation Date: 09/15/25 14:30 Case Time Into Pre-Op 09/15/25 13:30 Out of Pre-Op 09/15/25 14:51 Anesthesia Start 09/15/25 14:57 Into Room 09/15/25 14:57 Procedure Start 09/15/25 15:34 Procedure End 09/15/25 16:01 Anesthesia End 09/15/25 16:06 Out of Room 09/15/25 16:06 Into Recovery 09/15/25 16:09 Procedure Start Time: 15:34 Procedure Stop Time: 16:01 Select all DRAINS/GRAFTS/IMPLANTS that apply: Implanted device (14.5 Cook Islander chronic dual-lumen palindrome catheter) Implanted device details: LOT [id number], reference [id number] Estimated Blood Loss: 10 Specimen collected: No Description of surgery: After appropriate identification in the preoperative holding area the patient was brought to the operating room where they were positioned supine on the operating room table. I examined patient's neck with ultrasound and found a rather diminutive right internal jugular vein but the left, however, was significantly larger so I opted for the latter side. Preoperative antibiotics were completely administered. Sedation was begun per anesthesia and the patient's neck was prepped. Formal timeout was conducted to confirm both the patient and the procedure. Procedure was begun with ultrasound-guided access of the left internal jugular vein after creation of a local block using a standard 035 guidewire that came in the line kit. Fluoroscopy confirmed appropriate position of the wire. At this point I made a measurement from the insertion site to the mid atrium of approximately 25 cm. Desiring some room for the patient's tunneling/cuff placement, elected to proceed with a 28 cm catheter. The 035 guidewire from the catheter kit was placed through the micro access sheath and again fluoroscopy was used to confirm this placement. The insertion site was then enlarged sharply and bluntly. Measuring back from the proximal insertion site on the catheter, we determined that the tunneling site would need to be at least 5 cm away from the insertion site. Therefore this was measured out on the patient's chest and a counterincision was made at this point after instilling local anesthetic. A gentle curve of the tunneling tract to the insertion site was also instilled with local anesthetic. Then the catheter was connected to the tunneling device and was tunneled to the insertion site. I again measured the distance to the mid atrium and pulled back additional catheter. Next the insertion site was serially dilated and the peel-away sheath was placed under fluoroscopy. The catheter was fed through the peel-away sheath and once we neared completion another fluoroscopy image was obtained. Functionally, the catheter was tested with aspiration and flush of injectable saline which it did with ease. The insertion site was then closed with a single interrupted 2-0 nylon stitch. Another 3-0 nylon stitch was used to close down the insertion site at the tunneling entrance as a means of creating a cerclage. Lastly, the catheter was secured at the tiedown points on each port with a interrupted 2-0 nylon. Now the catheter was locked with 2 mL heparinized saline (concentration 1000 units/mL) per package specification. Chlorhexidine gel dressing was placed about the catheter. A small OpSite was applied to the insertion site. Patient was then allowed to emerge from sedation and was taken to PACU in stable condition. A chest x-ray was ordered in PACU for review of the catheter placement and to exclude pneumothorax. Surgical Findings: 22 mL 0.5% bupivacaine plain Complications Complications: No
--- NOTE | 2025-09-15 16:12 | PCM.POST.ANE ---
Anesthesia: Postop Eval I Current Vital Signs Temperature: 97.1 F Pulse Rate: 85 Blood Pressure: 163/94 Respiratory Rate: 20 Pulse Ox: 98 Oxygen Delivery Method: Room Air Assessment Airway patent: Yes Spontaneous unlabored respirations: Yes Mental status: Awake and Calm nausea: No Vomiting: No Anesthesia Complication: No Fluid Hydration Crystalloid volume administer (ml): 250 Total IV fluid infused: 250 Progress Note Anesthesia document: Postop Eval 1 completed: Yes
--- NOTE | 2025-09-15 16:15 | RAD_ITS ---
PROCEDURE: CXR FOR LINE PLACEMENT 09/15/2025 REASON FOR EXAM: STATUS POST LINE PLACEMENT TECHNIQUE: Procedure Code: RADCXRLP Modality: DX Procedure: CXR FOR LINE PLACEMENT COMPARISON: 09/14/2025 FINDINGS: Left IJ approach tunneled dialysis catheter with tip at the right atrium. Clear lungs and pleura. No pneumothorax or sizable pleural effusion. Cardiac silhouette is normal in size. No significant osseous abnormality. RAD/CXR for Line Placement IMPRESSION: Left IJ tunneled dialysis catheter in appropriate positioning. No acute cardiopulmonary disease. Reading Location: [id number]
--- NOTE | 2025-09-15 16:41 | POSTOPAN2_ITS ---
Anesthesia Postop Eval I Sum Postop Eval Completion status Anesthesia document: Postop Eval 1 completed: Yes Anesthesia Postop Eval I Summary Anesthesia Postop Eval I Summary: Anesthesia Postop Eval I: Assessment Summary Airway patent Yes 09/15/25 16:13 [employer]ICE PRESIDENT [email or web address] Spontaneous unlabored Yes 09/15/25 16:13 [employer]IDENT [email or web address] respirations Mental status Awake,Calm 09/15/25 16:13 [employer]ICE PRESIDENT [email or web address] nausea No 09/15/25 16:13 VICE PRESIDENT [email or web address] Vomiting No 09/15/25 16:13 [employer]ICE PRESIDENT [email or web address] Anesthesia Postop Eval I: Fluid Summary Crystalloid volume administer 250 09/15/25 16:13 [employer]ICE PRESIDENT [email or web address] (ml) Colloids volume administered ( ml) Blood Product volume administered (ml) Total IV fluid infused 250 09/15/25 16:13 [employer]IDENT [email or web address] Anesthesia Postop Eval I: Summary Notes Anesthesia Complication No 09/15/25 16:13 [employer]ICE PRESIDENT [email or web address] Anesthesia Complication Comment: Post-operative progress note Anesthesia: Postop Eval II Evaluation Mental status: Awake and Calm Pain Level: 1 nausea: No Vomiting: No Complications Anesthesia Complication: No
--- NOTE | 2025-09-15 16:41 | PCM.POSTANE2 ---
Anesthesia Postop Eval I Sum Postop Eval Completion status Anesthesia document: Postop Eval 1 completed: Yes Anesthesia Postop Eval I Summary Anesthesia Postop Eval I Summary: Anesthesia Postop Eval I: Assessment Summary Airway patent Yes 09/15/25 16:13 COUNTY LIBRARY [email or web address] Spontaneous unlabored Yes 09/15/25 16:13 COUNTY LIBRARY [email or web address] respirations Mental status Awake,Calm 09/15/25 16:13 COUNTY [email or web address] [email or web address] nausea No 09/15/25 16:13 COUNTY LIBRARY [email or web address] Vomiting No 09/15/25 16:13 COUNTY [email or web address] [email or web address] Anesthesia Postop Eval I: Fluid Summary Crystalloid volume administer 250 09/15/25 16:13 COUNTY LIBRARY [email or web address] (ml) Colloids volume administered ( ml) Blood Product volume administered (ml) Total IV fluid infused 250 09/15/25 16:13 COUNTY [email or web address] [email or web address] Anesthesia Postop Eval I: Summary Notes Anesthesia Complication No 09/15/25 16:13 COUNTY [email or web address] [email or web address] Anesthesia Complication Comment: Post-operative progress note Anesthesia: Postop Eval II Evaluation Mental status: Awake and Calm Pain Level: 1 nausea: No Vomiting: No Complications Anesthesia Complication: No
--- NOTE | 2025-09-15 19:35 | NURSING ---
This RN was informed by previous RN during change of shift report that this pt stated that they had a ride on the way and was planning on leaving AMA this evening. I went and introduced myself to the pt and they stated that they still wanted to leave AMA. This RN educated pt about dangers of leaving AMA and pt still stated that they wanted to leave. They stated that it was nothing that anyone did just that they have an appointment for dialysis in the morning and can just go there instead of staying in the hospital for the same thing. Notified that pt left AMA at 1935. Called this RN and said that she called the pts significant other about getting antibiotics and strongly suggesting pt to take the course of antibiotics.
--- NOTE | 2025-09-15 19:47 | PN.HOSP_ITS ---
Hospitalist Note Notified per waitstaff captain at 19:47 that patient left AMA at 19:35.
--- NOTE | 2025-09-15 19:47 | PCM.HOSP.N ---
Hospitalist Note Notified per bellstaff at 19:47 that patient left AMA at 19:35.
== END 2025-09-15 19:45 | disposition left against medical advice (07) | DRG 425 ==
LOC: ED 15:40 → PCU 18:26
PROVIDERS: Anesthesiology; Surgery; Admitting Provider Hospitalist; Emergency Provider Student in an Organized Health Care Education/Training Program; PCP Registered Nurse; Visit Provider Family Medicine
PROC: 0JH63XZ Insertion of Tunneled Vascular Access Device into Chest Subcutaneous Tissue and Fascia, Percutaneous Approach (ICD-10-PCS; principal; 2025-09-15 14:15)
DX: E87.5 Hyperkalemia (principal); I12.0 Hypertensive chronic kidney disease with stage 5 chronic kidney disease or end stage renal disease; E11.22 Type 2 diabetes mellitus with diabetic chronic kidney disease; D63.1 Anemia in chronic kidney disease; Z68.37 Body mass index [BMI] 37.0-37.9, adult; I48.0 Paroxysmal atrial fibrillation; E87.1 Hypo-osmolality and hyponatremia; N18.6 End stage renal disease; E11.42 Type 2 diabetes mellitus with diabetic polyneuropathy; Z99.2 Dependence on renal dialysis; Z79.4 Long term (current) use of insulin; E78.5 Hyperlipidemia, unspecified; K21.9 Gastro-esophageal reflux disease without esophagitis; E11.65 Type 2 diabetes mellitus with hyperglycemia; F17.210 Nicotine dependence, cigarettes, uncomplicated; Z91.158 Patient's noncompliance with renal dialysis for other reason; E66.812 Obesity, class 2; Z79.01 Long term (current) use of anticoagulants; Z79.84 Long term (current) use of oral hypoglycemic drugs; Z79.899 Other long term (current) drug therapy; Z53.29 Procedure and treatment not carried out because of patient's decision for other reasons
CPT/HCPCS: 36415; 71045; 77001; 80048; 82010; 82803; 82962; 85025; 85610; 85730; 87040; 93005; 94640; 97802; 99285; 99406; C1750; A4216; J0612

== ENCOUNTER 2025-09-26 14:57 | Emergency (ER) | payer MEDICAID, SELFPAY ==
[2025-09-26] VITALS (20 sets, daily range): BP systolic 178–219; BP diastolic 91–127; PULSE 94–99; RESP 13–23; TEMP 35.8–36.7; O2SAT 95–100; BMI 39.2
--- NOTE | 2025-09-26 15:46 | EX.ED.DYSGE1 ---
HPI History of Present Illness Chief Complaint: Abn Labs Narrative Narrative: Chief complaint and HPI: 50-year-old male with past medical history of DM with ESRD on dialysis Sunday, Sunday, Sunday presents for evaluation of labs secondary to missed dialysis. patient states that he received dialysis on Sunday. States he missed dialysis on Sunday secondary to a doctor's appointment. Missed his dialysis on Sunday as his transportation did not arrive. Patient states that he was scheduled for outpatient dialysis today in [place] however he states he did not want to go. He was given the option to go to the ER and have labs performed instead which she elected for. He does make urine. He denies any bilateral edema or body swelling. Denies any shortness of breath. Review of systems: See HPI Medications: As listed on the chart Allergies: As listed on the chart PFSH: Per chart Vital signs: As listed on the chart. Reviewed. Physical exam: Gen: A&O x3, NAD Head: Normocephalic, atraumatic Eyes: No sclera icterus, conjunctiva clear ENT: Moist mucous membranes Neck: Trachea midline, No JVD CV: RRR, no murmurs, minimal nonpitting peripheral edema of the bilateral lower extremities, left HD catheter without cellulitis Resp: Lungs CTA BL, no w/r/c GI: Abd soft, non-distended, non-tender, no r/r/g Musc: Moves all extremities Skin: Warm, dry Psych: Cooperative, appropriate mood and affect [facility] Medical History Anemia, unspecified Acute kidney failure, unspecified Obstructive and reflux uropathy, unspecified Polyneuropathy, unspecified Jean gangrene Debility Type 2 diabetes mellitus Decubitus ulcer of right buttock, stage 4 Home Medications ?Medication ?Instructions ?Recorded ?Last Taken ?Type apixaban 5 mg tablet (Eliquis) 5 mg PO BID blood thinner 06/05/24 09/26/25 History gabapentin 300 mg capsule 300 mg PO QHS leg pain 06/05/24 09/25/25 History glimepiride 4 mg tablet 8 mg PO DAILY diabetes 06/05/24 09/26/25 History insulin glargine 100 unit/mL (3 30 unit subcut QHS diabetes 06/05/24 09/25/25 History mL) subcutaneous pen (Lantus Solostar U-100 Insulin) insulin lispro 100 unit/mL 1 sliding scale dose subcut TID DM 06/05/24 09/26/25 History subcutaneous pen (Humalog KwikPen (U-100) Insulin) omeprazole 40 mg capsule,delayed 40 mg PO BID gerd 06/05/24 09/26/25 History release rosuvastatin 10 mg tablet 10 mg PO DAILY cholesterol 06/05/24 09/26/25 History acetaminophen 325 mg tablet 650 mg PO Q8H PRN pain 06/18/24 Unknown History calcium acetate(phosphat bind) 667 1,334 mg PO TID dialysis patient 09/08/25 09/26/25 History mg capsule hydralazine 50 mg tablet 50 mg PO TID blood pressure 09/08/25 09/26/25 History melatonin 3 mg tablet 3 mg PO QHS sleep 09/08/25 09/25/25 History metoprolol succinate 25 mg 25 mg PO DAILY heart 09/08/25 09/26/25 History tablet,extended release 24 hr Allergy/AdvReac Type Severity Reaction Status Date / Time ampicillin Allergy Unknown PT UNABLE Verified 09/26/25 14:58 TO RESPOND-NEEDS F/U Penicillins Allergy Unknown PT UNABLE Verified 09/26/25 14:58 TO RESPOND-NEEDS F/U lisinopril AdvReac Mild nausea Verified 09/26/25 14:58 Family History no significant family his Social History Smoking Status: Current some day smoker tobacco type: cigarettes EXAM Physical Exam Const Vital Signs: 09/26/25 14:58 09/26/25 15:11 09/26/25 15:30 Temperature 96.5 F L Temperature Source Temporal Pulse Rate 95 Respiratory Rate 18 Respiratory Effort Normal Non-Labored Respiratory Pattern Normal Blood Pressure 197/98 H 178/93 H Blood Pressure Mean 131 116 Pulse Ox 100 Oxygen Delivery Method Room Air 09/26/25 15:48 09/26/25 16:00 09/26/25 16:15 Temperature Temperature Source Pulse Rate 96 96 95 Respiratory Rate 20 H 23 H 14 Respiratory Effort Respiratory Pattern Blood Pressure 192/98 H Blood Pressure Mean 126 Pulse Ox 98 97 Oxygen Delivery Method 09/26/25 16:30 09/26/25 16:45 09/26/25 16:57 Temperature Temperature Source Pulse Rate 94 94 96 Respiratory Rate 17 15 19 H Respiratory Effort Respiratory Pattern Blood Pressure 202/102 H 189/91 H Blood Pressure Mean 132 123 Pulse Ox 95 98 96 Oxygen Delivery Method Room Air 09/26/25 17:00 09/26/25 17:11 09/26/25 17:13 Temperature Temperature Source Pulse Rate 94 94 Respiratory Rate 16 15 Respiratory Effort Respiratory Pattern Blood Pressure 219/127 H 209/110 H 189/91 H Blood Pressure Mean 155 138 118 Pulse Ox 97 97 Oxygen Delivery Method 09/26/25 17:15 09/26/25 17:30 09/26/25 17:45 Temperature Temperature Source Pulse Rate 95 96 Respiratory Rate 18 15 Respiratory Effort Respiratory Pattern Blood Pressure 206/102 H Blood Pressure Mean 133 Pulse Ox 97 Oxygen Delivery Method 09/26/25 17:57 09/26/25 18:00 09/26/25 18:27 Temperature Temperature Source Pulse Rate 95 Respiratory Rate 13 Respiratory Effort Respiratory Pattern Blood Pressure 211/99 H 210/112 H 210/112 H Blood Pressure Mean 129 141 144 Pulse Ox 99 Oxygen Delivery Method 09/26/25 18:31 09/26/25 19:35 Temperature Temperature Source Pulse Rate 99 Respiratory Rate 16 Respiratory Effort Respiratory Pattern Blood Pressure 185/101 H 184/106 H Blood Pressure Mean 129 132 Pulse Ox 98 Oxygen Delivery Method Room Air MDM MDM MDM Narrative Medical decision making narrative: 50-year-old male with past medical history of DM with ESRD on dialysis Sunday, Sunday, Sunday presents for evaluation of labs secondary to missed dialysis. Patient states that he received dialysis on Sunday. States he missed dialysis on Sunday secondary to a doctor's appointment. Missed his dialysis on Sunday as his transportation did not arrive. Patient states that he was scheduled for outpatient dialysis today in [place] however he states he did not want to go. He was given the option to go to the ER and have labs performed instead which she elected for. He does make urine. He denies any bilateral edema or body swelling. Denies any shortness of breath. On presentation, patient no acute distress. He is hypertensive likely secondary to his missed dialysis. Will give IV hydralazine. Differential diagnosis includes but is not limited to electrolyte abnormality, worsening ESRD, fluid overload. Patient is not overtly fluid overloaded on exam however will get chest x-ray to assess for pleural effusions. Basic labs ordered including magnesium. CBC with mild leukocytosis of 13.5. Patient has chronic anemia with hemoglobin of 7.4 from his ESRD. BMP shows hyperkalemia 5.9 with ESRD with a BUN of 59 and creatinine of 8.16. Hyperglycemia of 374. Magnesium unremarkable. Patient makes urine therefore hyperkalemia cocktail ordered with Kayexalate, insulin, and Lasix. Hospitalist was consulted for dialysis. They recommend reaching out to nephrology before admission to see if dialysis is needed emergently. Patient follows with Dr. Gutierres. I spoke with the on-call refinery operator polymerization plant. She was updated on the patient including his hypertension and labs. No emergent dialysis needed. Recommends his regular dialysis on Sunday. Did recommend repeating potassium. As long as it is staying the same or downtrending okay for discharge home. Patient's blood pressure did improve with hydralazine although still elevated. Will likely remain elevated until dialysis. His repeat potassium 5.4. Patient stable to discharge home. Follow-up with nephrology and primary care physician. He was educated that he needs to get his dialysis on Sunday and confirmed understanding. Return precautions explained. EKG: Interpreted by me/EM physician: EKG shows normal sinus rhythm with known right bundle branch block. heart rate 97 Diagnostic: Interpreted by me/EM physician: Chest x-ray not pneumonia, large effusion, cardiomegaly, pneumothorax. Mild vascular congestion. Radiology in agreement. Impression: 1. ESRD on HD, missed dialysis 2. Hyperkalemia secondary to #1 3. HTN secondary to #1 Lab Data Labs: Laboratory Results - last 24 hr 09/26/25 09/26/25 09/26/25 16:30 17:54 18:12 WBC 13.5 H RBC 2.87 L Hgb 7.4 L Hct 24.3 L MCV 84.7 MCH 25.8 L MCHC 30.5 L RDW Std Deviation 52.8 H RDW Coeff of Adolfo 17.1 H Plt Count 282 MPV 9.7 Immature Gran % (Auto) 2.000 H Neut % (Auto) 74.3 H Lymph % (Auto) 11.3 L [place] % (Auto) 7.7 Eos % (Auto) 4.1 Baso % (Auto) 0.6 Absolute Neuts (auto) 10.0 H Absolute Lymphs (auto) 1.52 Nucleated RBC % 0 Sodium 131 L Potassium 5.9 H Chloride 95 L Carbon Dioxide 19.4 L Anion Gap 16 H BUN 59 H Creatinine 8.16 H* Estim Creat Clear Calc 16.39 L Est GFR (MDRD) Non-Af 7 L BUN/Creatinine Ratio 7.2 L Glucose 374 H Calcium 8.7 Magnesium 2.2 POC Glucose 348 H 336 H 09/26/25 18:54 WBC RBC Hgb Hct MCV MCH MCHC RDW Std Deviation RDW Coeff of Adolfo Plt Count MPV Immature Gran % (Auto) Neut % (Auto) Lymph % (Auto) [place] % (Auto) Eos % (Auto) Baso % (Auto) Absolute Neuts (auto) Absolute Lymphs (auto) Nucleated RBC % Sodium Potassium 5.4 H Chloride Carbon Dioxide Anion Gap BUN Creatinine Estim Creat Clear Calc Est GFR (MDRD) Non-Af BUN/Creatinine Ratio Glucose Calcium Magnesium POC Glucose Radiography Diagnostic Testing: Clinical Impression(s) from Imaging Studies Chest X-Ray 09/26/25 15:50 IMPRESSION: No evidence of acute cardiopulmonary disease. Reading Location: [facility] Discharge Plan Triage Chief Complaint: Abn Labs ED Provider: Nikita Michael Dx/Rx/DC Orders Prescriptions: No Action acetaminophen 325 mg tablet 650 mg PO Q8H PRN (Reason: pain) melatonin 3 mg tablet 3 mg PO QHS metoprolol succinate 25 mg tablet extended release 24 hr 25 mg PO DAILY calcium acetate(phosphat bind) 667 mg capsule 1,334 mg PO TID hydralazine 50 mg tablet 50 mg PO TID omeprazole 40 mg capsule,delayed release(DR/EC) 40 mg PO BID glimepiride 4 mg tablet 8 mg PO DAILY gabapentin 300 mg capsule 300 mg PO QHS insulin lispro [Humalog KwikPen Insulin] 100 unit/mL insulin pen 1 sliding scale dose subcut TID Protocol: 6. Sliding Scale Insulin Custom Condition: mg/dl range Dose/Route: Number of Units Condition: 151-200 Dose/Route: 2 Condition: 201-250 Dose/Route: 4 Condition: 251-300 Dose/Route: 6 Condition: 301-350 Dose/Route: 8 Condition: 351-400 Dose/Route: 10 Condition: 401+ Dose/Route: CONTACT MD Protocol Text: Custom Sliding Scale rosuvastatin 10 mg tablet 10 mg PO DAILY insulin glargine [Lantus Solostar U-100 Insulin] 100 unit/mL (3 mL) insulin pen 30 unit subcut QHS Eliquis 5 mg tablet 5 mg PO BID Primary Care Provider: Phoebe Adam NP Referrals: Phoebe Adam NP, [facility] [Primary Care Provider, Medical] Print Language: Tuvaluan
--- NOTE | 2025-09-26 15:50 | RAD_ITS ---
PROCEDURE: RAD/Chest PA and Lateral
[2025-09-26 16:38] LABS: Hematocrit 24.3 % (40-54); Hemoglobin 7.4 g/dL (13.0-16.5); Immature Granulocytes Count 0.270 X10^3/uL (0.0-0.0); Mean Corp Hgb Conc 30.5 g/dL (32-36); Mean Corpuscular Volume 84.7 fL (80-94); Mean Platelet Vol. 9.7 fl (6.2-12.0); NRBC Flagged by Analyzer 0 % (0-5); Platelet Count 282 K/mm3 (150-450); RBC Distribution Width CV 17.1 % (11.6-14.6); RBC Distribution Width SD 52.8 fl (35.1-43.9); Red Blood Count 2.87 M/mm3 (4.6-6.2); White Blood Count 13.5 K/mm3 (4.4-11.0)
[2025-09-26 17:07] LABS: Magnesium 2.2 mg/dL (1.5-2.2)
[2025-09-26 17:10] LABS: Anion Gap 16 (5-15); BUN 59 mg/dL (4-19); BUN/Creat Ratio 7.2 RATIO (10-20); Calcium,Total 8.7 mg/dL (7.6-11.0); Carbon Dioxide 19.4 mmol/L (21.0-32.0); Chloride 95 mmol/L (98-108); Estimated Creatinine Clearance 16.39 ml/min (50-250); Glucose 374 mg/dL (70-99); Potassium 5.9 mmol/L (3.3-5.1)
--- NOTE | 2025-09-26 17:41 | ED.RN ---
Dr Rabago notified of critical creat
[2025-09-26] MEDS: Insulin Lispro 10 UNIT in Syringe 0 ML 6 UNIT IV (17:52)
--- NOTE | 2025-09-26 18:03 | ED.RN ---
Dr Rabago notified of high BP
[2025-09-26 19:35] LABS: Potassium 5.4 mmol/L (3.3-5.1)
== END 2025-09-26 19:50 | disposition home or self-care (01) ==
PROVIDERS: Emergency Provider Surgery; PCP Registered Nurse; Visit Provider Surgery
DX: R79.9 Abnormal finding of blood chemistry, unspecified (principal); I12.0 Hypertensive chronic kidney disease with stage 5 chronic kidney disease or end stage renal disease; N18.6 End stage renal disease; E11.22 Type 2 diabetes mellitus with diabetic chronic kidney disease; E11.42 Type 2 diabetes mellitus with diabetic polyneuropathy; Z79.4 Long term (current) use of insulin; Z99.2 Dependence on renal dialysis; E87.5 Hyperkalemia; Z79.84 Long term (current) use of oral hypoglycemic drugs; Z79.899 Other long term (current) drug therapy; F17.210 Nicotine dependence, cigarettes, uncomplicated
CPT/HCPCS: 71046; 80048; 82962; 83735; 84132; 85025; 93005; 96374; 96375; 99285; A4216; J1938